=== PATIENT | female | born 1945 | race African-American/Black ===

== ENCOUNTER 2018-04-21 08:14 | Day surgery (SDC) | payer OTHER ==
[2018-04-20 17:42] VITALS: BMI 28.3
[2018-04-21 09:30] VITALS: TEMP 97.8
--- NOTE | 2018-04-21 10:05 | HP ---
Satellite H - Chief Complaint Chief Complaint: right hand pain/numbness - Past Medical History Allergies/Adverse Reactions: Allergies Allergy/AdvReac Type Severity Reaction Status Date / Time Penicillins Allergy Severe Rash Verified 04/21/18 09:40 Cardiovascular: Yes: HTN Pulmonary: Yes: Asthma Heme/Onc: Yes: Other (paraproteinemia) - Current Medications Current Medications: Home Medications Medication Instructions Recorded Diltiazem [Cardizem -] 240 mg PO DAILY 06/14/13 Gabapentin 100 mg PO TID 06/14/13 Losartan/Hydrochlorothiazide 1 each PO DAILY 06/14/13 [Hyzaar 50-12.5 Tablet] Montelukast Na [Singulair -] 10 mg PO HS 06/14/13 Paroxetine HCl [Paxil -] 20 mg PO DAILY 06/14/13 Rosuvastatin [Crestor -] 40 mg PO HS 06/14/13 Salmeterol/Fluticasone [Advair 1 inh PO BID 06/14/13 250Mcg/50Mcg -] Nystatin Oral Suspension - 5 ml PO QID 04/20/18 [Nystatin Oral Susp 590781 Units/5 ML -] Hydrocodone/Acetaminophen [Aurora 1 each PO Q6H PRN #20 tablet MDD 4 04/21/18 5-325 Tablet] Satellite Physical Exam - Physical Examination Vital Signs: Vital Signs Period Temp Pulse Resp BP Sys/Moss Pulse Ox Last 24 Hr 97.8 F-97.8 F 76-90 20-20 136-136/86-86 98 General Appearance: Well Nourished, Well Developed, Alert & Oriented x3 ENT: Clear Lung: Normal air movement Heart: Regular rate & rhythm Extremities: Other (right hand- + tinels, + phalens emg + cts) Neurological: Intact, Alert, Oriented Satellite Impression/Plan - Impression/Plan Impression: right cts Operative Procedure: right ctr Date to be Performed: 04/21/18
[2018-04-21] MEDS ORDERED: PROPOFOL 20 ML ONE (10:32)
[2018-04-21] MEDS ORDERED: MIDAZOLAM HCL 2 MG/2 ML SINGLE DOSE VIAL ONE (10:32)
[2018-04-21] MEDS ORDERED: LIDOCAINE HCL 1%, 10 MG/ML (20ML VIAL) ONE (10:54)
[2018-04-21] MEDS ORDERED: ceFAZolin SODIUM 1 GM VIAL IVPB ONE (11:05)
[2018-04-21] MEDS ORDERED: ceFAZolin SODIUM 1 GM VIAL ONE (11:09)
[2018-04-21] MEDS ORDERED: LIDOCAINE HCL 1%, 10 MG/ML (20ML VIAL) INF ONE (11:30)
[2018-04-21] MEDS ORDERED: BUPIVACAINE HCL/PF 0.5% (5MG/ML) 10 ML VIAL IJ ONE (11:31)
--- NOTE | 2018-04-21 11:32 | OP ---
Operative Note - Note: Operative Date: 04/21/18 ([facility]) Pre-Operative Diagnosis: right cts Operation: right ctr Post-Operative Diagnosis: Same as Pre-op Surgeon: Aron Langley Fiberglass Fabricator: Carlo Smith Anesthesiologist/FILM AND VIDEO GRAPHICS DESIGNER: Desiree Carrion Anesthesia: Local, MAC Specimens Removed: tenosynovium Estimated Blood Loss (mls): 0 (tourniquet) Operative Report Dictated: Yes
--- NOTE | 2018-04-21 13:28 | OP ---
DATE OF OPERATION: 04/21/2018 PREOPERATIVE DIAGNOSIS: Right carpal tunnel syndrome. POSTOPERATIVE DIAGNOSIS: Right carpal tunnel syndrome. PROCEDURE: Right carpal tunnel release and tenosynovectomy. SURGEON: Aron Langley MD OPTION TRADER: Carlo Smith MD ANESTHESIA: , MAC anesthesia, local injection of 12 mL 0.5% Marcaine, 1% lidocaine mix. DRAINS: None. COMPLICATIONS: None. SPECIMENS: Tenosynovium, right wrist. BLOOD LOSS: None. BLOOD GIVEN: None. FLUID REPLACEMENT: 500 mL. INDICATION: This patient is a 73-year-old female with a preoperative diagnosis of right carpal tunnel syndrome. After understanding the potential risks, complications, alternatives, benefits of surgery versus nonsurgical treatment, the patient elected to undergo this procedure. She understands she may not get complete relief of her symptoms including a continuation of all or some of her numbness. She also understands will continue to improve for 6 months. This was all discussed preoperatively. DESCRIPTION OF PROCEDURE: The patient was brought to the operating room, peripheral IV placed and intravenous sedation was given. One gram of intravenous Ancef was given. MAC anesthesia was induced. A tourniquet was applied to the right upper arm and the right upper extremity was prepped and draped in sterile fashion. The entire case was done under 3.8 loupe magnification. A marking pen was utilized to magdy out a longitudinal incision in an already existing skin crease. Twenty mL of 0.5% Marcaine mixed with 1% Lidocaine was injected in and around the surgical incision. The right upper extremity was elevated, exsanguinated with an Esmarch bandage and the tourniquet inflated to 250 mmHg. A No. 15 scalpel blade was utilized to cut down through the skin. Subcutaneous hemostasis was achieved with the bipolar cautery. Dissection was done through the superficial palmar fascia. Self-retaining retractors were placed into the wound. Under direct visualization, the transverse carpal ligament was transected with a No. 15 scalpel blade, exposing the median nerve and the contents of the carpal tunnel. The distal and proximal extents of the release were completed with a Littler scissor and checked with irrigation and my small finger. They were seen to be complete. Limited dissection was done on the radial side of the median nerve and more extensive dissection was done on the ulnar side of the median nerve. The patients nerve was seen to be quite compressed by epineurium and therefore a limited epineurotomy was performed. A Ragnell retractor was used to gently retract the median nerve in a radial direction. The patient had a lot of tenosynovitis and therefore a tenosynovectomy was performed off all 9 flexor tendons. This was passed off the field as tenosynovium right wrist. The floor of the carpal tunnel was checked. There were no abnormal masses or ganglion cysts. The area was copiously irrigated and washed out and closure begun. Undyed 4-0 Vicryl was used to close the deep dermal layer. Final skin reapproximation was done with horizontal mattress 4-0 nylon sutures. The area was then washed and dried, covered with Xeroform, 4x4s, fluffs between the fingers, Webril and a 4-inch plaster roll was utilized to make a volar splint, which was then wrapped with Ray and Coban. The tourniquet was taken down after a total tourniquet time of 15 minutes. There were no complications during the case. The patient tolerated the procedure well and was brought to the ambulatory recovery room in stable condition. Sharyn [id number]
[2018-04-21 14:26] VITALS: BP 132/77; PULSE 80
--- NOTE | 2018-04-22 15:54 | PATH ---
Surgical Pathology Report Patient Name: SHERRY SIMPSON [facility]. Rec. #: [id number] /Age/Gender: 1945 (Age: 73) / F Account: [id number] Location: [facility] Taken: 04/21/2018 Received: 04/21/2018 Reported: 04/22/2018 Physicians: Sharyn Sesay M.D. Specimen(s) Received TENOSYNOVIUM Clinical History Right carpal tunnel syndrome Final Diagnosis TENOSYNOVIUM, RELEASE: TENOSYNOVIUM. Electronically Signed Sheila Gifford M.D. Gross Description Received in formalin labeled "tenosynovium," is a 2.4 x 1.6 x 0.3 cm aggregate of kearns soft tissue fragments, consistent with tenosynovium. The specimen is entirely submitted in one cassette. DL/04/21/2018 saudi/04/21/2018
== END 2018-04-21 14:00 | disposition home or self-care (01) ==
LOC: JASU-SURG 08:14
PROVIDERS: ATTEND Orthopaedic Surgery
PROC: 01N50ZZ Release Median Nerve, Open Approach (ICD-10-PCS; principal; 2018-04-21 10:30)
DX: G56.01 Carpal tunnel syndrome, right upper limb (principal)
CPT/HCPCS: 88304-TC

== ENCOUNTER 2018-10-11 13:28 | Inpatient (IN) | payer OTHER ==
--- NOTE | 2018-10-11 14:38 | PDOC ---
History of Present Illness - General Chief Complaint: Nausea/Vomiting Stated Complaint: PCP REFERRED Time Seen by Provider: 10/11/18 14:13 History Source: Patient Exam Limitations: No Limitations - History of Present Illness Initial Comments: 10/11/18 15:12 73 yo F with a hx of multiple myeloma (dx 4 years ago; refused chemo in past; followed by Dr. Stuart), HTN, HLD, and hypothyroidism presents to the emergency department referred by Dr. Stuart for N/V, failure to thrive, DEBBIE, and worsening weakness. Per the patient, she states she has had N/V (watery, without hematemesis, multiple) for last 4 days with associative constant abdominal pain in the RUQ and epigastric region that radiates to the back ( currently does not have pain today). She states she has had pancreas issues in the past (unknown pathology). Currently she feels nauseous and weak. Endorses the following: chills, nausea, vomiting, diarrhea, cough (without production), chills, and generalized weakness. Denies the following: visual changes, headache , ear/nose/throat pain, fevers, chest pain, SOB, dysuria, hematuria, diarrhea, hematochezia, and leg pain/swelling. Pmhx: Refer to above Shx: hiatal hernia () Meds: Refer to list. denies anticoagulation use. Allergies: Penicillin Social: Denies tobacco, alcohol, and substance abuse. Past History - Past Medical History Allergies/Adverse Reactions: Allergies Allergy/AdvReac Type Severity Reaction Status Date / Time Penicillins Allergy Severe Rash Verified 04/21/18 09:40 Home Medications: Ambulatory Orders Diltiazem [Cardizem -] 240 mg PO DAILY 06/14/13 Gabapentin 300 mg PO TID 06/14/13 Atorvastatin Ca [Lipitor] 40 mg PO HS 10/11/18 Diltiazem Cd [Cardizem Cd -] 240 mg PO DAILY 10/11/18 Famotidine [Pepcid] 40 mg PO DAILY 10/11/18 Levothyroxine [Synthroid -] 25 mcg PO DAILY 10/11/18 Losartan Potassium 25 mg PO DAILY 10/11/18 Meloxicam 15 mg PO DAILY 10/11/18 Methimazole 10 mg PO BID 10/11/18 [place]-3/Dha/Epa/Fish Oil [[place] 3 500 Softgel] 1 each PO DAILY 10/11/18 Omeprazole 20 mg PO DAILY 10/11/18 Anemia: Yes Asthma: Yes Cancer: Yes (myeloma) Cardiac Disorders: Yes (pt denies) CVA: No COPD: Yes CHF: No Dementia: No Diabetes: No (not on any meds) GI Disorders: Yes (HIATAL HERNIA) Disorders: No HTN: Yes Hypercholesterolemia: Yes Liver Disease: Yes (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) Seizures: No Thyroid Disease: No - Surgical History Abdominal Surgery: Yes Appendectomy: No Cardiac Surgery: No Cholecystectomy: No Lung Surgery: No Neurologic Surgery: No Orthopedic Surgery: No - Suicide/Smoking/Psychosocial Hx Smoking History: Never smoked Have you smoked in the past 12 months: No If you are a former smoker, when did you quit?: 1987 Information on smoking cessation initiated: No Hx Alcohol Use: No Drug/Substance Use Hx: No Substance Use Type: None Hx Substance Use Treatment: No Review of Systems - Review of Systems Able to Perform ROS?: Yes Is the patient limited Lithuanian proficient: No Constitutional: Yes: Chills, Weakness. No: Diaphoresis, Fever HEENTM: No: Eye Pain, Recent change in vision, Ear Pain, Nose Pain, Throat Pain , Mouth Pain Respiratory: Yes: Cough. No: Shortness of Breath, SOB with Exertion, Hemoptysis Cardiac (ROS): No: Chest Pain, Lightheadedness, Palpitations, Syncope, Chest Tightness ABD/GI: Yes: Diarrhea, Nausea, Poor Appetite, Poor Fluid Intake, Vomiting. No: Constipated, Rectal Bleeding, Abdominal cramping, Tarry Stools : No: Burning, Dysuria, Frequency, Hematuria Musculoskeletal: No: Back Pain, Joint Pain, Muscle Weakness Integumentary: No: Bruising, Lesions, Rash, Sweating Neurological: No: Headache, Numbness, Tremors, Weakness Psychiatric: No: Stressors Endocrine: No: Unexplained Weight Loss Hematologic/Lymphatic: No: Anemia *Physical Exam - Vital Signs Last Vital Signs Temp Pulse Resp BP Pulse Ox 98.6 F 118 H 18 150/104 H 100 10/11/18 13:28 10/11/18 13:28 10/11/18 13:28 10/11/18 13:28 10/11/18 13:28 Moderate Sedation - Procedure Monitoring Vital Signs: Procedure Monitoring Vital Signs Temperature 98.6 F 10/11/18 13:28 Pulse Rate 118 H 10/11/18 13:28 Respiratory Rate 18 10/11/18 13:28 Blood Pressure 150/104 H 10/11/18 13:28 O2 Sat by Pulse Oximetry (%) 100 10/11/18 13:28 ED Treatment Course - LABORATORY CBC & Chemistry Diagram: 10/11/18 14:57 10/11/18 14:57 *DC/Admit/Observation/Transfer - Referrals Referrals: Yenny Benavides [Primary Care Provider] - - Patient Instructions - Post Discharge Activity
[2018-10-11] MEDS ORDERED: ONDANSETRON 4 MG/2 ML VIAL IVPUSH ONE (15:13)
[2018-10-11] MEDS ORDERED: SODIUM CHLORIDE 1,000 ML IV STA (15:14)
[2018-10-11] MEDS ORDERED: ONDANSETRON 4 MG/2 ML VIAL ONE (15:17)
[2018-10-11 15:59] LABS: BASO % 0.4 % (0-2.0); EOS % 0.2 % (0-4.5); HEMATOCRIT 31.9 % (32.4-45.2); HEMOGLOBIN 11.3 GM/dL (10.7-15.3); LYMPH % 21.9 % (8-40); MCH 32.6 pg (25.7-33.7); MCHC 35.5 g/dl (32.0-36.0); MEAN CELL VOLUME 91.8 fl (80-96); MONO % 4.5 % (3.8-10.2); PLATELET COUNT 233 K/MM3 (134-434); RBC 3.47 M/mm3 (3.60-5.2); RDW 15.1 % (11.6-15.6)
--- NOTE | 2018-10-11 16:35 | PDOC ---
Attending Attestation - Resident Resident Name: Shahid Villarreal - ED Attending Attestation I have performed the following: I have examined & evaluated the patient, The case was reviewed & discussed with the resident, I agree w/resident's findings & plan, Exceptions are as noted - HPI HPI: 10/11/18 16:33 73 F with h/o multiple myeloma (dx 4 years ago; refused chemo in past; followed by Dr. Stuart), HTN, HLD, and hypothyroidism presenting with N/V and abdominal pain. Pt reports several days of RUQ pain, associated with vomiting. Pt denies F /C. Pt also reports generalized malaise. Denies F/C. Denies CP/SOB. - Physicial Exam PE: 10/11/18 16:37 "GENERAL: Awake, alert, and fully oriented, in no acute distress. HEAD: No signs of trauma EYES: PERRLA, EOMI, sclera anicteric, conjunctiva clear ENT: Auricles normal inspection, hearing grossly normal, nares patent, oropharynx clear without exudates. Moist mucosa NECK: Nontender, no stepoffs, Normal ROM, supple, no lymphadenopathy, JVD, or masses LUNGS: Breath sounds equal, clear to auscultation bilaterally. No wheezes, and no crackles HEART: Regular rate and rhythm, normal S1 and S2, no murmurs, rubs or gallops ABDOMEN: + RUQ TTP, + epigastric TTP, normoactive bowel sounds. No guarding, no rebound. No masses EXTREMITIES: Normal range of motion, no edema. No clubbing or cyanosis. No cords, erythema, or tenderness NEUROLOGICAL: Cranial nerves II through XII intact. 5/5 strength and sensation in all extremities, Normal speech, normal gait, normal cerebellar function SKIN: Warm, Dry, normal turgor, no rashes or lesions noted. - Medical Decision Making 10/11/18 16:37 73 F with RUQ pain and vomiting. Will evaluate for acute lyndsey. Pt also has h/o MM and was sent in by Dr. Stuart for concern of failure to thrive and dehydration. Will check electrolytes and administer IV fluids. - Labs - CXR, UA - RUQ sono - IVF - Admit
--- NOTE | 2018-10-11 18:19 | CONSULT ---
Consult - text type - Consultation Consultation Note: Patient well known to our service 73 y/o with GERD, smoldering myeloma, now withnew onset leg swelling comes in with lethargy, wt. loss, poor PO intake Urine protein/cr ratio --10gms proteinuria Ig A lambda myeloma Feels tino with hydration check skeletal survey Renal consilt start allopurinol will consdier velcade/dex will need endocrine consult for elevated TSH
[2018-10-11 18:42] LABS: ALBUMIN 1.3 g/dl (3.4-5.0); ALK PHOS 70 U/L (45-117); ANION GAP 12 MMOL/L (8-16); BILIRUBIN,TOTAL 0.3 mg/dL (0.2-1); BLOOD UREA NITROGEN 13 mg/dL (7-18); CALCIUM 9.6 mg/dL (8.5-10.1); CHLORIDE 104 mmol/L (98-107); CO2 23 mmol/L (21-32); CREATININE 0.9 mg/dL (0.55-1.3); GLUCOSE,RANDOM 93 mg/dL (74-106); LIPASE 111 U/L (73-393); POTASSIUM 4.4 mmol/L (3.5-5.1); SGOT/AST 22 U/L (15-37); SGPT/ALT 12 U/L (13-61); SODIUM 139 mmol/L (136-145); TOT PROT 8.3 g/dl (6.4-8.2)
[2018-10-11] MEDS ORDERED: ALLOPURINOL 100 MG TABLET (FP) ONE (18:55)
[2018-10-11] MEDS: ALLOPURINOL 300 MG TABLET (FP) PO SCH (19:04)
[2018-10-12 05:32] LABS: BASO % 0.3 % (0-2.0); EOS % 0.6 % (0-4.5); HEMATOCRIT 27.3 % (32.4-45.2); HEMOGLOBIN 9.1 GM/dL (10.7-15.3); LYMPH % 37.1 % (8-40); MCH 30.9 pg (25.7-33.7); MCHC 33.2 g/dl (32.0-36.0); MEAN PLT VOLUME 7.3 fl (7.5-11.1); MONO % 6.9 % (3.8-10.2); NEUT % 55.1 % (42.8-82.8); PLATELET COUNT 212 K/MM3 (134-434); RBC 2.93 M/mm3 (3.60-5.2); RDW 15.1 % (11.6-15.6); WHITE BLOOD COUNT 6.1 K/mm3 (4.0-10.0)
[2018-10-12 05:59] LABS: ALBUMIN 1.2 g/dl (3.4-5.0); ALK PHOS 65 U/L (45-117); ANION GAP 8 MMOL/L (8-16); BILIRUBIN,TOTAL 0.2 mg/dL (0.2-1); BLOOD UREA NITROGEN 14 mg/dL (7-18); CALCIUM 9.3 mg/dL (8.5-10.1); CHLORIDE 106 mmol/L (98-107); CO2 25 mmol/L (21-32); GLUCOSE,RANDOM 87 mg/dL (74-106); LDH 100 U/L (84-246); POTASSIUM 3.7 mmol/L (3.5-5.1); SGOT/AST 13 U/L (15-37); SGPT/ALT 13 U/L (13-61); SODIUM 139 mmol/L (136-145); TOT PROT 7.8 g/dl (6.4-8.2)
[2018-10-12] MEDS ORDERED: HEPARIN NA (PORCINE) 5,000 UNITS/ML 1ML VIAL ONE (06:48)
[2018-10-12] MEDS ORDERED: GABAPENTIN 100 MG CAPSULE (FP) ONE (06:48)
[2018-10-12] MEDS ORDERED: LEVOTHYROXINE NA 25 MCG TABLET (FP) ONE (06:48)
[2018-10-12] MEDS: HEPARIN NA (PORCINE) 5,000 UNITS/ML 1ML VIAL SQ SCH ×3 (06:55→22:26)
[2018-10-12] MEDS: GABAPENTIN 300 MG CAPSULE (FP) PO SCH ×3 (07:06→22:26)
[2018-10-12] MEDS: LEVOTHYROXINE NA 25 MCG TABLET (FP) PO SCH (07:06)
[2018-10-12] MEDS ORDERED: PATIENT'S OWN MEDICATION (NON-FORMULARY) (Meloxicam [Meloxicam] 15 MG) PO SCH (10:00)
[2018-10-12] MEDS: RANITIDINE HCL 150 MG TABLET (FP) PO SCH (10:05)
[2018-10-12] MEDS: LOSARTAN POTASSIUM 25 MG TABLET PO SCH (10:05)
[2018-10-12] MEDS: ALLOPURINOL 300 MG TABLET (FP) PO SCH (10:10)
[2018-10-12 10:13] LABS: URINE APPEARANCE CLEAR; URINE BILIRUBIN NEGATIVE (<2.0 mg/dL); URINE COLOR YELLOW; URINE GLUCOSE (UA) NEGATIVE (NEGATIVE); URINE KETONE NEGATIVE (NEGATIVE); URINE LEUK ESTERASE NEGATIVE (NEGATIVE); URINE NITRITE NEGATIVE (NEGATIVE); URINE PROTEIN 3+ (NEGATIVE); URINE UROBILINOGEN NEGATIVE mg/dL (0.2-1.0)
[2018-10-12 10:22] LABS: EPI CELLS RARE /HPF (FEW); URINE HYALINE CAST 7 /lpf
--- NOTE | 2018-10-12 12:59 | EKG ---
Test Reason : Blood Pressure : / mmHG Vent. Rate : 119 BPM Atrial Rate : 119 BPM P-R Int : 160 ms QRS Dur : 084 ms QT Int : 312 ms P-R-T Axes : 049 -36 076 degrees QTc Int : 438 ms SINUS TACHYCARDIA POSSIBLE LEFT ATRIAL ENLARGEMENT LEFT AXIS DEVIATION ABNORMAL ECG Confirmed by Kemar Tierney ([id number]) on 10/12/2018 12:58:51 PM Referred By: Confirmed By:Kemar Tierney
--- NOTE | 2018-10-12 15:04 | CONSULT ---
Consult Consult Specialty:: Nephrology Reason for Consultation:: proteinuria - History of Present Illness Chief Complaint: weakness and failure to thrive History of Present Illness: Pt is a 73 year old female with pmhx of multiple myeloma, HTN, HLD, and hypothyroidism who presents to the ER with failure to thrive and weakness. She complains of abdominal pain and vomiting. She denies over the counter nsaid use however she is on meloxicam. She denies dysuria or hematuria. She does have proteinuria. I was called to evaluate her for increased proteinuria. She denies fevers or chills. She does complain of lower ext edema. She says that she does feel better today. - History Source History Provided By: Patient, Medical Record - Past Medical History Cardio/Vascular: Yes: HTN Pulmonary: Yes: Asthma Heme/Onc: Yes: Other (multiple myeloma) - Alcohol/Substance Use Hx Alcohol Use: No - Smoking History Smoking history: Never smoked Have you smoked in the past 12 months: No If you are a former smoker, when did you quit?: 1987 Home Medications - Allergies Allergies/Adverse Reactions: Allergies Allergy/AdvReac Type Severity Reaction Status Date / Time Penicillins Allergy Severe Rash Verified 04/21/18 09:40 - Home Medications Home Medications: Ambulatory Orders Diltiazem [Cardizem -] 240 mg PO DAILY 06/14/13 Gabapentin 300 mg PO TID 06/14/13 Atorvastatin Ca [Lipitor] 40 mg PO HS 10/11/18 Diltiazem Cd [Cardizem Cd -] 240 mg PO DAILY 10/11/18 Famotidine [Pepcid] 40 mg PO DAILY 10/11/18 Levothyroxine [Synthroid -] 25 mcg PO DAILY 10/11/18 Losartan Potassium 25 mg PO DAILY 10/11/18 Meloxicam 15 mg PO DAILY 10/11/18 Methimazole 10 mg PO BID 10/11/18 [place]-3/Dha/Epa/Fish Oil [[place] 3 500 Softgel] 1 each PO DAILY 10/11/18 Omeprazole 20 mg PO DAILY 10/11/18 Family Disease History - Family Disease History Family History: Denies Review of Systems - Review of Systems Constitutional: reports: Malaise. denies: Chills, Fever HENT: reports: No Symptoms Neck: reports: No Symptoms Cardiovascular: reports: Edema Respiratory: reports: SOB on Exertion Genitourinary: reports: No Symptoms Musculoskeletal: reports: Muscle Weakness Neurological: reports: No Symptoms Endocrine: reports: No Symptoms Hematology/Lymphatic: reports: No Symptoms Physical Exam Vital Signs: Vital Signs Temperature 98.8 F 10/12/18 12:00 Pulse Rate 102 H 10/12/18 14:15 Respiratory Rate 18 10/12/18 14:15 Blood Pressure 110/69 10/12/18 14:15 O2 Sat by Pulse Oximetry (%) 99 10/12/18 14:15 Constitutional: Yes: Calm Eyes: Yes: Conjunctiva Clear HENT: Yes: Atraumatic Cardiovascular: Yes: S1, S2 Respiratory: Yes: CTA Bilaterally Gastrointestinal: Yes: Soft, Abdomen, Obese Renal/: Yes: WNL Edema: Yes Edema: LLE: Trace, RLE: Trace Neurological: Yes: Oriented Psychiatric: Yes: Oriented Labs: CBC, BMP 10/12/18 05:00 10/12/18 05:00 Laboratory Tests 03/11/17 10/11/18 10/11/18 08:15 14:57 17:33 WBC Hgb 11.3 Creatinine 0.9 0.9 Albumin 1.3 L TSH Urine Protein 10/12/18 10/12/18 10/12/18 05:00 05:00 05:00 WBC 6.1 Hgb 9.1 L Creatinine 1.0 Albumin 1.2 L TSH 14.90 H Urine Protein 10/12/18 09:51 WBC Hgb Creatinine Albumin TSH Urine Protein 3+ H Imaging - Results Chest X-ray: Report Reviewed Problem List - Problems (1) Proteinuria Code(s): R80.9 - PROTEINURIA, UNSPECIFIED (2) Multiple myeloma Code(s): C90.00 - MULTIPLE MYELOMA NOT HAVING ACHIEVED REMISSION (3) HTN (hypertension) Code(s): I10 - ESSENTIAL (PRIMARY) HYPERTENSION (4) HLD (hyperlipidemia) Code(s): E78.5 - HYPERLIPIDEMIA, UNSPECIFIED Assessment/Plan Current Medications Generic Name Dose Route Start Last Admin Trade Name Freq PRN Reason Stop Dose Admin Allopurinol 300 mg 10/11/18 18:15 10/12/18 10:10 Zyloprim - PO 300 mg DAILY PABLITO Administration Atorvastatin Calcium 40 mg 10/12/18 22:00 Lipitor - PO HS PABLITO Diltiazem HCl 240 mg 10/12/18 10:00 10/12/18 10:05 Cardizem Cd - PO 240 mg DAILY PABLITO Administration Gabapentin 300 mg 10/12/18 06:00 10/12/18 14:08 Neurontin - PO 300 mg TID PABLITO Administration Heparin Sodium (Porcine) 5,000 unit 10/12/18 06:00 10/12/18 14:07 Heparin - SQ 5,000 unit TID PABLITO Administration Levothyroxine Sodium 25 mcg 10/12/18 07:00 10/12/18 07:06 Synthroid - PO 25 mcg DAILY@0700 PABLITO Administration Losartan Potassium 25 mg 10/12/18 10:00 10/12/18 10:05 Cozaar - PO 25 mg DAILY PABLITO Administration Non-Formulary Medication 15 mg 10/12/18 10:00 Meloxicam [Meloxicam] PO DAILY [facility] Ranitidine HCl 300 mg 10/12/18 10:00 10/12/18 10:05 Zantac - PO 300 mg DAILY PABLITO Administration Impression 1. proteinuria 2. multiple myeloma 3. failure to thive 4. edema 5. htn 6. HLD 7. hypothyroidism Plan - will check prt to coarse wire drawer ratio - will send out renal workup - cont with cozaar and increase dose to 50 mg - repeat labs in am - repeat ua - monitor bp - encourage PO intake - will discuss myeloma and treatment with oncology
[2018-10-12 16:17] VITALS: BMI 27.3
--- NOTE | 2018-10-12 18:03 | PN ---
Progress Note (short form) - Note Progress Note: PROGRESS NOTE FOR HEMATOLOGY/ONCOLOGY Patient seen and examined by me at bedside Patient reports feeling much better and reports having only a minor headache in the temporal area Otherwise, patient denies any fever, chills, nausea, vomiting, abdominal pain, chest pain, palpitations, shortness of breath, dysuria, hematuria, hematochezia , melena. Vital Signs Temperature 98.9 F 10/12/18 17:41 Pulse Rate 99 H 10/12/18 17:41 Respiratory Rate 20 10/12/18 17:41 Blood Pressure 123/79 10/12/18 17:41 O2 Sat by Pulse Oximetry (%) 96 10/12/18 16:20
--- NOTE | 2018-10-12 18:08 | PN ---
Progress Note (short form) - Note Progress Note: :Patient seen and examined No headache or bone pains LE edema improved Seen by renal- work up instituted Last Vital Signs Temp Pulse Resp BP Pulse Ox 98.9 F 99 H 20 123/79 96 10/12/18 17:41 10/12/18 17:41 10/12/18 17:41 10/12/18 17:41 10/12/18 16:20 HEENT: ZOILA, EOM Intact Oropharynx: No thrush, No mucositis Cor: RSR, No murmurs, No gallops Lungs: Clear to P&A Abd: Soft, Normal bowel sounds, No organomegaly Ext:No significant edema Skin: No rashes, Integument intact CBC, BMP 10/12/18 05:00 10/12/18 05:00 Current Medications Generic Name Dose Route Start Last Admin Trade Name Freq PRN Reason Stop Dose Admin Allopurinol 300 mg 10/11/18 18:15 10/12/18 10:10 Zyloprim - PO 300 mg DAILY PABLITO Administration Atorvastatin Calcium 40 mg 10/12/18 22:00 Lipitor - PO HS PABLITO Diltiazem HCl 240 mg 10/12/18 10:00 10/12/18 10:05 Cardizem Cd - PO 240 mg DAILY PABLITO Administration Gabapentin 300 mg 10/12/18 06:00 10/12/18 14:08 Neurontin - PO 300 mg TID PABLITO Administration Heparin Sodium (Porcine) 5,000 unit 10/12/18 06:00 10/12/18 14:07 Heparin - SQ 5,000 unit TID PABLITO Administration Levothyroxine Sodium 25 mcg 10/12/18 07:00 10/12/18 07:06 Synthroid - PO 25 mcg DAILY@0700 PABLITO Administration Losartan Potassium 25 mg 10/12/18 10:00 10/12/18 10:05 Cozaar - PO 25 mg DAILY PABLITO Administration Non-Formulary Medication 15 mg 10/12/18 10:00 Meloxicam [Meloxicam] PO DAILY PABLITO Ranitidine HCl 300 mg 10/12/18 10:00 10/12/18 10:05 Zantac - PO 300 mg DAILY PABLITO Administration Impression: IgA myeloma Proteinuria Anemia Renal sono- negative Abdominal sono-biliary sludge To institute therapy with velcade and decadron Allopurinol begun
[2018-10-12 19:13] LABS: URINE APPEARANCE SLCLOUDY; URINE BILIRUBIN NEGATIVE (<2.0 mg/dL); URINE COLOR YELLOW; URINE GLUCOSE (UA) NEGATIVE (NEGATIVE); URINE KETONE NEGATIVE (NEGATIVE); URINE LEUK ESTERASE NEGATIVE (NEGATIVE); URINE NITRITE NEGATIVE (NEGATIVE); URINE PROTEIN 3+ (NEGATIVE); URINE UROBILINOGEN NEGATIVE mg/dL (0.2-1.0)
[2018-10-12 19:29] LABS: EPI CELLS RARE /HPF (FEW); URINE MUCUS RARE
--- NOTE | 2018-10-12 19:48 | HP ---
Admitting History and Physical - Past Medical History Cardiovascular: Yes: HTN Pulmonary: Yes: Asthma ...: No Heme/Onc: Yes: Other (multiple myeloma) - Smoking History Smoking history: Never smoked Have you smoked in the past 12 months: No Aproximately how many cigarettes per day: 0 If you are a former smoker, when did you quit?: 1987 - Alcohol/Substance Use Hx Alcohol Use: No Home Medications - Allergies Allergies/Adverse Reactions: Allergies Allergy/AdvReac Type Severity Reaction Status Date / Time Penicillins Allergy Severe Rash Verified 04/21/18 09:40 - Home Medications Home Medications: Ambulatory Orders Gabapentin 300 mg PO TID 06/14/13 Atorvastatin Ca [Lipitor] 40 mg PO HS 10/11/18 Diltiazem Cd [Cardizem Cd -] 240 mg PO DAILY 10/11/18 Famotidine [Pepcid] 40 mg PO DAILY 10/11/18 Levothyroxine [Synthroid -] 25 mcg PO DAILY 10/11/18 Losartan Potassium 25 mg PO DAILY 10/11/18 Meloxicam 15 mg PO DAILY 10/11/18 Methimazole 10 mg PO BID 10/11/18 [place]-3/Dha/Epa/Fish Oil [[place] 3 500 Softgel] 1 each PO DAILY 10/11/18 Omeprazole 20 mg PO DAILY 10/11/18 Physical Examination Vital Signs: Vital Signs Temperature 98.9 F 10/12/18 17:41 Pulse Rate 99 H 10/12/18 17:41 Respiratory Rate 20 10/12/18 17:41 Blood Pressure 123/79 10/12/18 17:41 O2 Sat by Pulse Oximetry (%) 96 10/12/18 16:20 Labs: CBC, BMP 10/12/18 05:00 10/12/18 05:00
[2018-10-12 21:28] LABS: RATIO URIN PROTEIN/URIN CREAT 8.9 MG/DL
[2018-10-12] MEDS: ATORVASTATIN CA 40 MG TABLET (FP) PO SCH (22:26)
[2018-10-13] MEDS: HEPARIN NA (PORCINE) 5,000 UNITS/ML 1ML VIAL SQ SCH ×3 (05:46→21:18)
[2018-10-13] MEDS: GABAPENTIN 300 MG CAPSULE (FP) PO SCH ×3 (05:46→21:18)
[2018-10-13] MEDS: LEVOTHYROXINE NA 25 MCG TABLET (FP) PO SCH (06:06)
[2018-10-13 07:31] LABS: BASO % 0.4 % (0-2.0); EOS % 1.6 % (0-4.5); HEMATOCRIT 25.2 % (32.4-45.2); HEMOGLOBIN 8.9 GM/dL (10.7-15.3); LYMPH % 38.8 % (8-40); MCH 32.7 pg (25.7-33.7); MCHC 35.4 g/dl (32.0-36.0); MEAN CELL VOLUME 92.2 fl (80-96); MEAN PLT VOLUME 7.5 fl (7.5-11.1); MONO % 7.8 % (3.8-10.2); NEUT % 51.4 % (42.8-82.8); PLATELET COUNT 241 K/MM3 (134-434); RBC 2.73 M/mm3 (3.60-5.2); WHITE BLOOD COUNT 5.7 K/mm3 (4.0-10.0)
--- NOTE | 2018-10-13 07:33 | PN ---
Progress Note (short form) - Note Progress Note: Patient seen and examined No specific complaints offered Last Vital Signs Temp Pulse Resp BP Pulse Ox 98.4 F 98 H 20 124/72 96 10/13/18 05:53 10/13/18 05:53 10/13/18 05:53 10/13/18 05:53 10/12/18 16:20 HEENT: ZOILA, EOM Intact Oropharynx: No mucositis, coated tongue Cor: RSR, No murmurs, No gallops Lungs: Clear to P&A Abd: Soft, Normal bowel sounds, No organomegaly Ext:No significant edema Skin: No rashes, Integument intact CBC, BMP 10/12/18 05:00 Current Medications Generic Name Dose Route Start Last Admin Trade Name Edgar PRN Reason Stop Dose Admin Allopurinol 300 mg 10/11/18 18:15 10/12/18 10:10 Zyloprim - PO 300 mg DAILY PABLITO Administration Atorvastatin Calcium 40 mg 10/12/18 22:00 10/12/18 22:26 Lipitor - PO 40 mg HS PABLITO Administration Diltiazem HCl 240 mg 10/12/18 10:00 10/12/18 10:05 Cardizem Cd - PO 240 mg DAILY PABLITO Administration Gabapentin 300 mg 10/12/18 06:00 10/13/18 05:46 Neurontin - PO 300 mg TID PABLITO Administration Heparin Sodium (Porcine) 5,000 unit 10/12/18 06:00 10/13/18 05:46 Heparin - SQ 5,000 unit TID PABLITO Administration Levothyroxine Sodium 25 mcg 10/12/18 07:00 10/13/18 06:06 Synthroid - PO 25 mcg DAILY@0700 PABLITO Administration Losartan Potassium 25 mg 10/12/18 10:00 10/12/18 10:05 Cozaar - PO 25 mg DAILY PABLITO Administration Ranitidine HCl 300 mg 10/12/18 10:00 10/12/18 10:05 Zantac - PO 300 mg DAILY PABLITO Administration Impression: Multiple myeloma- for chemotherapy Hypothyroid - needs endocrine follow up Anemia- to monitor- B-12, and folate levels pending Plan: Velcade/ decadron Nystatin Endo follow up
[2018-10-13] MEDS: ALLOPURINOL 300 MG TABLET (FP) PO SCH (09:35)
[2018-10-13] MEDS: LOSARTAN POTASSIUM 25 MG TABLET PO SCH (09:36)
[2018-10-13] MEDS: RANITIDINE HCL 150 MG TABLET (FP) PO SCH (09:36)
--- NOTE | 2018-10-13 12:39 | PN ---
Progress Note, Physician History of Present Illness: Pt seen and examined at bedside. She is awake and alert. She denies shortness of breath. She will start treatment for chemo. - Current Medication List Current Medications: Active Medications Allopurinol (Zyloprim -) 300 mg PO DAILY [facility] Last Admin: 10/13/18 09:35 Dose: 300 mg Atorvastatin Calcium (Lipitor -) 40 mg PO HS [facility] Last Admin: 10/12/18 22:26 Dose: 40 mg Diltiazem HCl (Cardizem Cd -) 240 mg PO DAILY [facility] Last Admin: 10/13/18 09:35 Dose: 240 mg Gabapentin (Neurontin -) 300 mg PO TID [facility] Last Admin: 10/13/18 05:46 Dose: 300 mg Heparin Sodium (Porcine) (Heparin -) 5,000 unit SQ TID [facility] Last Admin: 10/13/18 05:46 Dose: 5,000 unit Levothyroxine Sodium (Synthroid -) 25 mcg PO DAILY@0700 [facility] Last Admin: 10/13/18 06:06 Dose: 25 mcg Losartan Potassium (Cozaar -) 25 mg PO DAILY [facility] Last Admin: 10/13/18 09:36 Dose: 25 mg Nystatin (Nystatin) 500,000 unit PO TID [facility] Ranitidine HCl (Zantac -) 300 mg PO DAILY [facility] Last Admin: 10/13/18 09:36 Dose: 300 mg - Objective Vital Signs: Vital Signs Temperature 99.8 F H 10/13/18 08:44 Pulse Rate 107 H 10/13/18 08:44 Respiratory Rate 20 10/13/18 09:00 Blood Pressure 128/75 10/13/18 08:44 O2 Sat by Pulse Oximetry (%) 97 10/13/18 09:00 Constitutional: Yes: Calm Eyes: Yes: Conjunctiva Clear HENT: Yes: Atraumatic Neck: Yes: Supple Cardiovascular: Yes: S1, S2 Respiratory: Yes: CTA Bilaterally Gastrointestinal: Yes: Normal Bowel Sounds, Soft Genitourinary: Yes: WNL Musculoskeletal: Yes: WNL Edema: No Integumentary: Yes: WNL Neurological: Yes: Oriented Psychiatric: Yes: Oriented Labs: CBC, BMP 10/13/18 06:15 10/12/18 05:00 Problem List - Problems (1) Proteinuria Code(s): R80.9 - PROTEINURIA, UNSPECIFIED (2) Multiple myeloma Code(s): C90.00 - MULTIPLE MYELOMA NOT HAVING ACHIEVED REMISSION (3) HTN (hypertension) Code(s): I10 - ESSENTIAL (PRIMARY) HYPERTENSION (4) HLD (hyperlipidemia) Code(s): E78.5 - HYPERLIPIDEMIA, UNSPECIFIED Assessment/Plan Current Medications Generic Name Dose Route Start Last Admin Trade Name Freq PRN Reason Stop Dose Admin Allopurinol 300 mg 10/11/18 18:15 10/13/18 09:35 Zyloprim - PO 300 mg DAILY [facility] Administration Atorvastatin Calcium 40 mg 10/12/18 22:00 10/12/18 22:26 Lipitor - PO 40 mg HS [facility] Administration Diltiazem HCl 240 mg 10/12/18 10:00 10/13/18 09:35 Cardizem Cd - PO 240 mg DAILY [facility] Administration Gabapentin 300 mg 10/12/18 06:00 10/13/18 05:46 Neurontin - PO 300 mg TID [facility] Administration Heparin Sodium (Porcine) 5,000 unit 10/12/18 06:00 10/13/18 05:46 Heparin - SQ 5,000 unit TID [facility] Administration Levothyroxine Sodium 25 mcg 10/12/18 07:00 10/13/18 06:06 Synthroid - PO 25 mcg DAILY@0700 [facility] Administration Losartan Potassium 25 mg 10/12/18 10:00 10/13/18 09:36 Cozaar - PO 25 mg DAILY [facility] Administration Nystatin 500,000 unit 10/13/18 14:00 Nystatin PO TID [facility] Ranitidine HCl 300 mg 10/12/18 10:00 10/13/18 09:36 Zantac - PO 300 mg DAILY [facility] Administration Laboratory Tests 10/12/18 10/13/18 14:39 06:15 Protein/Creatinin Ratio 8.9 MAURICE M-Alfredo Pending Serum MAURICE Interpret Pending MAURICE Interpretation Pending IEP IgG Pending IEP IgA Pending IEP IgM Pending CINTIA Screen Pending c-ANCA Pending Proteinase 3 (PR3) Pending p-ANCA Pending Atypical p-ANCA Pending Myeloperoxidase Ab Pending Double Strand DNA Ab Pending Glomerular Base Memb Ab Pending Impression 1. proteinuria 2. multiple myeloma 3. failure to thrive 4. edema 5. htn 6. HLD 7. hypothyroidism Plan - pt with nephrotic range proteinuria - serologic workup in progress - likely due to myeloma - discussed kidney biopsy options with pt and oncology - monitor urine for improvement with treatment of myeloma - will follow Dr Hameed
[2018-10-13] MEDS: NYSTATIN 500,000 UNITS TABLET PO SCH ×2 (13:12→21:18)
[2018-10-13] MEDS ORDERED: PT OWN MED DRAWER 7, Y5N ONE (20:39)
[2018-10-13] MEDS: ATORVASTATIN CA 40 MG TABLET (FP) PO SCH (21:18)
--- NOTE | 2018-10-13 22:40 | PN ---
Progress Note, Physician - Current Medication List Current Medications: Active Medications Allopurinol (Zyloprim -) 300 mg PO DAILY [facility] Last Admin: 10/13/18 09:35 Dose: 300 mg Atorvastatin Calcium (Lipitor -) 40 mg PO HS [facility] Last Admin: 10/13/18 21:18 Dose: 40 mg Diltiazem HCl (Cardizem Cd -) 240 mg PO DAILY [facility] Last Admin: 10/13/18 09:35 Dose: 240 mg Gabapentin (Neurontin -) 300 mg PO TID [facility] Last Admin: 10/13/18 21:18 Dose: 300 mg Heparin Sodium (Porcine) (Heparin -) 5,000 unit SQ TID [facility] Last Admin: 10/13/18 21:18 Dose: 5,000 unit Levothyroxine Sodium (Synthroid -) 25 mcg PO DAILY@0700 [facility] Last Admin: 10/13/18 06:06 Dose: 25 mcg Losartan Potassium (Cozaar -) 25 mg PO DAILY [facility] Last Admin: 10/13/18 09:36 Dose: 25 mg Nystatin (Nystatin) 500,000 unit PO TID [facility] Last Admin: 10/13/18 21:18 Dose: 500,000 unit Ranitidine HCl (Zantac -) 300 mg PO DAILY [facility] Last Admin: 10/13/18 09:36 Dose: 300 mg - Objective Vital Signs: Vital Signs Temperature 98.2 F 10/13/18 18:00 Pulse Rate 110 H 10/13/18 18:00 Respiratory Rate 18 10/13/18 18:00 Blood Pressure 136/69 10/13/18 18:00 O2 Sat by Pulse Oximetry (%) 97 10/13/18 09:00 Labs: CBC, BMP 10/13/18 06:15 10/12/18 05:00
--- NOTE | 2018-10-13 23:57 | CONSULT ---
Consult Consult Specialty:: endocrine Referred by:: dr.rocco das Reason for Consultation:: hypothyroidism - History of Present Illness Chief Complaint: weakness and lethargic History of Present Illness: 73 yo F with a hx of multiple myeloma (dx 4 years ago; refused chemo in past; followed by Dr. Stuart), HTN, HLD, and hypothyroidism presents to the emergency department referred by Dr. Stuart for N/V, failure to thrive, DEBBIE, and worsening weakness. Per the patient, she states she has had N/V she has had history of low thyroid but dose not remember taking the medication.she feel she is forgetful,weak,cold and dry skin - History Source History Provided By: Patient - Past Medical History Cardio/Vascular: Yes: HTN Pulmonary: Yes: Asthma ...: No - Alcohol/Substance Use Hx Alcohol Use: No - Smoking History Smoking history: Never smoked Have you smoked in the past 12 months: No Aproximately how many cigarettes per day: 0 If you are a former smoker, when did you quit?: 1987 Home Medications - Allergies Allergies/Adverse Reactions: Allergies Allergy/AdvReac Type Severity Reaction Status Date / Time Penicillins Allergy Severe Rash Verified 04/21/18 09:40 - Home Medications Home Medications: Ambulatory Orders Gabapentin 300 mg PO TID 06/14/13 Atorvastatin Ca [Lipitor] 40 mg PO HS 10/11/18 Diltiazem Cd [Cardizem Cd -] 240 mg PO DAILY 10/11/18 Famotidine [Pepcid] 40 mg PO DAILY 10/11/18 Levothyroxine [Synthroid -] 25 mcg PO DAILY 10/11/18 Losartan Potassium 25 mg PO DAILY 10/11/18 Meloxicam 15 mg PO DAILY 10/11/18 Methimazole 10 mg PO BID 10/11/18 Chapman-3/Dha/Epa/Fish Oil [Chapman 3 500 Softgel] 1 each PO DAILY 10/11/18 Omeprazole 20 mg PO DAILY 10/11/18 Review of Systems - Review of Systems Constitutional: reports: Lethargy, Weakness Eyes: reports: No Symptoms HENT: reports: No Symptoms Neck: reports: Swollen Glands Cardiovascular: reports: Edema, Shortness of Breath Respiratory: reports: Exercise Intolerance, SOB on Exertion Gastrointestinal: reports: Bloating Genitourinary: reports: No Symptoms Musculoskeletal: reports: No Symptoms Integumentary: reports: No Symptoms Neurological: reports: Numbness Physical Exam Vital Signs: Vital Signs Temperature 99.3 F 10/13/18 22:00 Pulse Rate 96 H 10/13/18 22:00 Respiratory Rate 20 10/13/18 22:00 Blood Pressure 133/72 10/13/18 22:00 O2 Sat by Pulse Oximetry (%) 95 10/13/18 21:00 Constitutional: Yes: Calm Eyes: Yes: EOM Intact HENT: Yes: Normocephalic Neck: Yes: Thyromegaly Cardiovascular: Yes: Regular Rate and Rhythm Respiratory: Yes: CTA Bilaterally Gastrointestinal: Yes: Normal Bowel Sounds ...Rectal Exam: Yes: Deferred Renal/: Yes: WNL Musculoskeletal: Yes: WNL Extremities: Yes: WNL Edema: No Neurological: Yes: Alert, Oriented Labs: CBC, BMP 10/13/18 06:15 10/12/18 05:00 Problem List - Problems (1) Adult onset hypothyroidism Code(s): E03.8 - OTHER SPECIFIED HYPOTHYROIDISM (2) HLD (hyperlipidemia) Code(s): E78.5 - HYPERLIPIDEMIA, UNSPECIFIED (3) Multiple myeloma Code(s): C90.00 - MULTIPLE MYELOMA NOT HAVING ACHIEVED REMISSION Assessment/Plan Current Active Problems HLD (hyperlipidemia) (Acute) HTN (hypertension) (Acute) Multiple myeloma (Acute) Proteinuria (Acute) hypothryoidism adult onset \mami thyroiditis Abnormal Lab Results 10/13/18 06:15 RBC 2.73 L Hgb 8.9 L Hct 25.2 L Laboratory Results - last 24 hr 10/13/18 10/13/18 10/13/18 06:15 06:15 06:15 WBC 5.7 RBC 2.73 L Hgb 8.9 L Hct 25.2 L MCV 92.2 MCH 32.7 MCHC 35.4 RDW 15.0 Plt Count 241 MPV 7.5 Absolute Neuts (auto) 2.9 Neutrophils % 51.4 Lymphocytes % 38.8 Monocytes % 7.8 Eosinophils % 1.6 D Basophils % 0.4 Nucleated RBC % 0 Ferritin 181.5 Vitamin B12 636 Serum Folate 10 Laboratory Tests 10/12/18 05:00 TSH 14.90 H plan: SYNTHROID 25MCG AM DAILY FREE T4 ORDERED FOLLOW UP FOR TSH FREE T4 OUTPATIENT
[2018-10-14] MEDS ORDERED: PT OWN MED DRAWER 7, Y5N ONE (05:30)
[2018-10-14] MEDS: GABAPENTIN 300 MG CAPSULE (FP) PO SCH ×2 (05:54→14:04)
[2018-10-14] MEDS: HEPARIN NA (PORCINE) 5,000 UNITS/ML 1ML VIAL SQ SCH ×3 (05:54→21:48)
[2018-10-14] MEDS: NYSTATIN 500,000 UNITS TABLET PO SCH ×3 (05:55→22:05)
[2018-10-14] MEDS: LEVOTHYROXINE NA 25 MCG TABLET (FP) PO SCH (06:37)
[2018-10-14 07:33] LABS: BASO % 0.4 % (0-2.0); EOS % 1.6 % (0-4.5); HEMATOCRIT 27.4 % (32.4-45.2); HEMOGLOBIN 8.9 GM/dL (10.7-15.3); LYMPH % 44.4 % (8-40); MCH 30.6 pg (25.7-33.7); MCHC 32.5 g/dl (32.0-36.0); MEAN CELL VOLUME 94.2 fl (80-96); MEAN PLT VOLUME 7.2 fl (7.5-11.1); NEUT % 44.6 % (42.8-82.8); PLATELET COUNT 227 K/MM3 (134-434); RBC 2.91 M/mm3 (3.60-5.2); RDW 14.9 % (11.6-15.6); WHITE BLOOD COUNT 5.2 K/mm3 (4.0-10.0)
[2018-10-14 08:10] LABS: SERUM IRON SATURATION 40 % (15-55); TOTAL IRON BINDING CAPACITY 126 ug/dL (250-450); UIBC 75 ug/dL (118-369)
[2018-10-14 08:42] LABS: ALBUMIN 1.2 g/dl (3.4-5.0); ALK PHOS 66 U/L (45-117); ANION GAP 11 MMOL/L (8-16); BILIRUBIN,TOTAL 0.2 mg/dL (0.2-1); BLOOD UREA NITROGEN 15 mg/dL (7-18); CALCIUM 9.7 mg/dL (8.5-10.1); CHLORIDE 105 mmol/L (98-107); CO2 25 mmol/L (21-32); CREATININE 0.9 mg/dL (0.55-1.3); GLUCOSE,RANDOM 95 mg/dL (74-106); MAGNESIUM 2.2 mg/dL (1.8-2.4); POTASSIUM 3.7 mmol/L (3.5-5.1); SGOT/AST 14 U/L (15-37); SGPT/ALT 12 U/L (13-61); SODIUM 141 mmol/L (136-145); TOT PROT 7.9 g/dl (6.4-8.2)
[2018-10-14] MEDS: LOSARTAN POTASSIUM 25 MG TABLET PO SCH (09:49)
[2018-10-14] MEDS: RANITIDINE HCL 150 MG TABLET (FP) PO SCH (09:49)
[2018-10-14] MEDS: ALLOPURINOL 300 MG TABLET (FP) PO SCH (09:49)
[2018-10-14] MEDS ORDERED: BORTEZOMIB (VELCADE) 2.5 MG/ML SUB-Q INJECTION SQ ONE (13:30)
[2018-10-14] MEDS ORDERED: SODIUM CHLORIDE 1,000 ML IV SCH (14:00)
--- NOTE | 2018-10-14 14:29 | PN ---
Progress Note, Physician History of Present Illness: Pt seen and examined at bedside. She denies shortness of breath. SHe denies lower ext edema. - Current Medication List Current Medications: Active Medications Allopurinol (Zyloprim -) 300 mg PO DAILY [facility] Last Admin: 10/14/18 09:49 Dose: 300 mg Atorvastatin Calcium (Lipitor -) 40 mg PO HS [facility] Last Admin: 10/13/18 21:18 Dose: 40 mg Diltiazem HCl (Cardizem Cd -) 240 mg PO DAILY [facility] Last Admin: 10/14/18 09:49 Dose: 240 mg Gabapentin (Neurontin -) 300 mg PO TID [facility] Last Admin: 10/14/18 14:04 Dose: 300 mg Heparin Sodium (Porcine) (Heparin -) 5,000 unit SQ TID [facility] Last Admin: 10/14/18 14:04 Dose: 5,000 unit Sodium Chloride (Normal Saline -) 1,000 mls @ 42 mls/hr IV ASDIR [facility] Last Admin: 10/14/18 14:03 Dose: 42 mls/hr Levothyroxine Sodium (Synthroid -) 25 mcg PO DAILY@0700 [facility] Last Admin: 10/14/18 06:37 Dose: 25 mcg Losartan Potassium (Cozaar -) 25 mg PO DAILY [facility] Last Admin: 10/14/18 09:49 Dose: 25 mg Nystatin (Nystatin) 500,000 unit PO TID [facility] Last Admin: 10/14/18 05:55 Dose: 500,000 unit Ranitidine HCl (Zantac -) 300 mg PO DAILY [facility] Last Admin: 10/14/18 09:49 Dose: 300 mg - Objective Vital Signs: Vital Signs Temperature 98.6 F 10/14/18 10:00 Pulse Rate 105 H 10/14/18 10:00 Respiratory Rate 20 10/14/18 10:00 Blood Pressure 135/66 10/14/18 10:00 O2 Sat by Pulse Oximetry (%) 100 10/14/18 09:00 Constitutional: Yes: Calm Eyes: Yes: Conjunctiva Clear HENT: Yes: Atraumatic Neck: Yes: Supple Cardiovascular: Yes: S1, S2 Respiratory: Yes: CTA Bilaterally Gastrointestinal: Yes: Normal Bowel Sounds, Soft Genitourinary: Yes: WNL Musculoskeletal: Yes: WNL Edema: No Neurological: Yes: Oriented Psychiatric: Yes: Oriented Labs: CBC, BMP 10/14/18 07:00 10/14/18 07:00 Problem List - Problems (1) Proteinuria Code(s): R80.9 - PROTEINURIA, UNSPECIFIED (2) Multiple myeloma Code(s): C90.00 - MULTIPLE MYELOMA NOT HAVING ACHIEVED REMISSION (3) HTN (hypertension) Code(s): I10 - ESSENTIAL (PRIMARY) HYPERTENSION (4) HLD (hyperlipidemia) Code(s): E78.5 - HYPERLIPIDEMIA, UNSPECIFIED Assessment/Plan Current Medications Generic Name Dose Route Start Last Admin Trade Name Freq PRN Reason Stop Dose Admin Allopurinol 300 mg 10/11/18 18:15 10/14/18 09:49 Zyloprim - PO 300 mg DAILY [facility] Administration Atorvastatin Calcium 40 mg 10/12/18 22:00 10/13/18 21:18 Lipitor - PO 40 mg HS [facility] Administration Diltiazem HCl 240 mg 10/12/18 10:00 10/14/18 09:49 Cardizem Cd - PO 240 mg DAILY [facility] Administration Gabapentin 300 mg 10/12/18 06:00 10/14/18 14:04 Neurontin - PO 300 mg TID [facility] Administration Heparin Sodium (Porcine) 5,000 unit 10/12/18 06:00 10/14/18 14:04 Heparin - SQ 5,000 unit TID [facility] Administration Sodium Chloride 1,000 mls @ 42 mls/hr 10/14/18 14:00 10/14/18 14:03 Normal Saline - IV 42 mls/hr ASDIR [facility] Administration Levothyroxine Sodium 25 mcg 10/12/18 07:00 10/14/18 06:37 Synthroid - PO 25 mcg DAILY@0700 [facility] Administration Losartan Potassium 25 mg 10/12/18 10:00 10/14/18 09:49 Cozaar - PO 25 mg DAILY [facility] Administration Nystatin 500,000 unit 10/13/18 14:00 10/14/18 05:55 Nystatin PO 500,000 unit TID [facility] Administration Ranitidine HCl 300 mg 10/12/18 10:00 10/14/18 09:49 Zantac - PO 300 mg DAILY [facility] Administration Impression 1. proteinuria 2. multiple myeloma 3. failure to thrive 4. edema 5. htn 6. HLD 7. hypothyroidism Plan - increase cozaar to 50 mg - monitor bp - repeat urine studies in a few days - cont treatment for myeloma, hopefully proteinuria improved with myeloma treatment - will follow Dr Hameed
[2018-10-14] MEDS: DEXAMETHASONE INJECTION 20 MG in SODIUM CHLORIDE 100 ML IVPB ONE ×2 (14:42→18:02)
[2018-10-14] MEDS ORDERED: DEXAMETHASONE INJECTION 20 MG in SODIUM CHLORIDE 100 ML IVPB ONE (14:45)
--- NOTE | 2018-10-14 20:28 | PN ---
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
[2018-10-14] MEDS: SODIUM CHLORIDE 1,000 ML IV SCH (21:20)
[2018-10-14 21:42] LABS: ALBUMIN 1.3 g/dl (3.4-5.0); ALK PHOS 77 U/L (45-117); ANION GAP 12 MMOL/L (8-16); BILIRUBIN,TOTAL < 0.1 mg/dL (0.2-1); BLOOD UREA NITROGEN 14 mg/dL (7-18); CALCIUM 9.6 mg/dL (8.5-10.1); CHLORIDE 106 mmol/L (98-107); CO2 23 mmol/L (21-32); CREATININE 1.1 mg/dL (0.55-1.3); GLUCOSE,RANDOM 166 mg/dL (74-106); LDH 170 U/L (84-246); POTASSIUM 3.9 mmol/L (3.5-5.1); SGOT/AST 18 U/L (15-37); SGPT/ALT 13 U/L (13-61); SODIUM 141 mmol/L (136-145); TOT PROT 8.8 g/dl (6.4-8.2); URIC ACID 4.8 mg/dL (2.6-7.2)
[2018-10-14] MEDS: ATORVASTATIN CA 40 MG TABLET (FP) PO SCH (21:48)
--- NOTE | 2018-10-14 23:22 | PN ---
Progress Note, Physician - Current Medication List Current Medications: Active Medications Allopurinol (Zyloprim -) 300 mg PO DAILY [facility] Last Admin: 10/14/18 09:49 Dose: 300 mg Atorvastatin Calcium (Lipitor -) 40 mg PO HS [facility] Last Admin: 10/14/18 21:48 Dose: 40 mg Diltiazem HCl (Cardizem Cd -) 240 mg PO DAILY [facility] Last Admin: 10/14/18 09:49 Dose: 240 mg Heparin Sodium (Porcine) (Heparin -) 5,000 unit SQ TID [facility] Last Admin: 10/14/18 21:48 Dose: 5,000 unit Sodium Chloride (Normal Saline -) 1,000 mls @ 75 mls/hr IV ASDIR [facility] Last Admin: 10/14/18 21:20 Dose: 75 mls/hr Levothyroxine Sodium (Synthroid -) 25 mcg PO DAILY@0700 [facility] Last Admin: 10/14/18 06:37 Dose: 25 mcg Losartan Potassium (Cozaar -) 25 mg PO DAILY [facility] Last Admin: 10/14/18 09:49 Dose: 25 mg Nystatin (Nystatin) 500,000 unit PO TID [facility] Last Admin: 10/14/18 22:05 Dose: 500,000 unit Ranitidine HCl (Zantac -) 300 mg PO DAILY [facility] Last Admin: 10/14/18 09:49 Dose: 300 mg - Objective Vital Signs: Vital Signs Temperature 99 F 10/14/18 22:00 Pulse Rate 113 H 10/14/18 22:00 Respiratory Rate 20 10/14/18 22:00 Blood Pressure 129/69 10/14/18 22:00 O2 Sat by Pulse Oximetry (%) 100 10/14/18 20:58 Labs: CBC, BMP 10/14/18 07:00 10/14/18 20:30
[2018-10-15] MEDS: NYSTATIN 500,000 UNITS TABLET PO SCH ×3 (05:43→22:45)
[2018-10-15] MEDS: HEPARIN NA (PORCINE) 5,000 UNITS/ML 1ML VIAL SQ SCH ×3 (05:43→22:44)
[2018-10-15] MEDS: SODIUM CHLORIDE 1,000 ML IV SCH ×2 (05:56→22:49)
[2018-10-15] MEDS: LEVOTHYROXINE NA 25 MCG TABLET (FP) PO SCH (06:23)
[2018-10-15 07:07] LABS: BASO % 0.2 % (0-2.0); HEMATOCRIT 26.8 % (32.4-45.2); HEMOGLOBIN 8.9 GM/dL (10.7-15.3); LYMPH % 12.7 % (8-40); MCH 30.9 pg (25.7-33.7); MCHC 33.1 g/dl (32.0-36.0); MEAN CELL VOLUME 93.5 fl (80-96); MEAN PLT VOLUME 7.3 fl (7.5-11.1); MONO % 1.2 % (3.8-10.2); NEUT % 85.9 % (42.8-82.8); PLATELET COUNT 242 K/MM3 (134-434); RBC 2.87 M/mm3 (3.60-5.2); RDW 15.1 % (11.6-15.6); WHITE BLOOD COUNT 9.8 K/mm3 (4.0-10.0)
[2018-10-15 07:43] LABS: ALBUMIN 1.3 g/dl (3.4-5.0); ALK PHOS 67 U/L (45-117); ANION GAP 12 MMOL/L (8-16); BILIRUBIN,TOTAL 0.2 mg/dL (0.2-1); BLOOD UREA NITROGEN 17 mg/dL (7-18); CALCIUM 9.6 mg/dL (8.5-10.1); CHLORIDE 106 mmol/L (98-107); CO2 21 mmol/L (21-32); GLUCOSE,RANDOM 149 mg/dL (74-106); LDH 127 U/L (84-246); POTASSIUM 3.6 mmol/L (3.5-5.1); SGOT/AST 15 U/L (15-37); SGPT/ALT 14 U/L (13-61); SODIUM 139 mmol/L (136-145); TOT PROT 8.7 g/dl (6.4-8.2); URIC ACID 4.9 mg/dL (2.6-7.2)
[2018-10-15] MEDS: RANITIDINE HCL 150 MG TABLET (FP) PO SCH (09:00)
[2018-10-15] MEDS: ALLOPURINOL 300 MG TABLET (FP) PO SCH (09:00)
[2018-10-15] MEDS: LOSARTAN POTASSIUM 25 MG TABLET PO SCH (09:00)
[2018-10-15 09:15] LABS: INR 1.14 (0.83-1.09); PROTHROMBIN TIME (PATIENT) 13.5 SEC (9.7-13.0)
[2018-10-15 09:17] LABS: ACTIVATED PTT 40.7 SECONDS (25.2-36.5)
--- NOTE | 2018-10-15 10:09 | PN ---
Progress Note (short form) - Note Progress Note: Patient seen and examined Tolerated velcade without untoward effect Offers no complaints on ROS Last Vital Signs Temp Pulse Resp BP Pulse Ox 99.2 F 109 H 20 136/82 100 10/15/18 05:47 10/15/18 05:47 10/15/18 05:47 10/15/18 05:47 10/14/18 20:58 HEENT: ZOILA, EOM Intact Oropharynx: No thrush, No mucositis Cor: RSR, No murmurs, No gallops Lungs: Clear to P&A Abd: Soft, Normal bowel sounds, No organomegaly Ext:No significant edema Skin: No rashes, Integument intact CBC, BMP 10/15/18 06:15 10/15/18 06:15 Current Medications Generic Name Dose Route Start Last Admin Trade Name Freq PRN Reason Stop Dose Admin Allopurinol 300 mg 10/11/18 18:15 10/15/18 09:00 Zyloprim - PO 300 mg DAILY [facility] Administration Atorvastatin Calcium 40 mg 10/12/18 22:00 10/14/18 21:48 Lipitor - PO 40 mg HS [facility] Administration Diltiazem HCl 240 mg 10/12/18 10:00 10/15/18 09:00 Cardizem Cd - PO 240 mg DAILY [facility] Administration Heparin Sodium (Porcine) 5,000 unit 10/12/18 06:00 10/15/18 05:43 Heparin - SQ 5,000 unit TID [facility] Administration Sodium Chloride 1,000 mls @ 75 mls/hr 10/14/18 19:39 10/15/18 05:56 Normal Saline - IV 75 mls/hr ASDIR [facility] Administration Levothyroxine Sodium 25 mcg 10/12/18 07:00 10/15/18 06:23 Synthroid - PO 25 mcg DAILY@0700 [facility] Administration Losartan Potassium 25 mg 10/12/18 10:00 10/15/18 09:00 Cozaar - PO 25 mg DAILY [facility] Administration Nystatin 500,000 unit 10/13/18 14:00 10/15/18 05:43 Nystatin PO 500,000 unit TID [facility] Administration Ranitidine HCl 300 mg 10/12/18 10:00 10/15/18 09:00 Zantac - PO 300 mg DAILY [facility] Administration Impression: Active myeloma \Proteinuria S/P treatment with velcade Anemia Plan: CT sca Possible renal biopsy.
[2018-10-15 10:12] LABS: ANTIGLOMERULAR BASEMENT MEN.AB 2 units (0-20)
--- NOTE | 2018-10-15 12:29 | PN ---
Progress Note, Physician History of Present Illness: Pt seen and examined at bedside. She is awake and alert. - Current Medication List Current Medications: Active Medications Allopurinol (Zyloprim -) 300 mg PO DAILY [facility] Last Admin: 10/15/18 09:00 Dose: 300 mg Atorvastatin Calcium (Lipitor -) 40 mg PO HS [facility] Last Admin: 10/14/18 21:48 Dose: 40 mg Diltiazem HCl (Cardizem Cd -) 240 mg PO DAILY [facility] Last Admin: 10/15/18 09:00 Dose: 240 mg Heparin Sodium (Porcine) (Heparin -) 5,000 unit SQ TID [facility] Last Admin: 10/15/18 05:43 Dose: 5,000 unit Sodium Chloride (Normal Saline -) 1,000 mls @ 75 mls/hr IV ASDIR [facility] Last Admin: 10/15/18 05:56 Dose: 75 mls/hr Levothyroxine Sodium (Synthroid -) 25 mcg PO DAILY@0700 [facility] Last Admin: 10/15/18 06:23 Dose: 25 mcg Losartan Potassium (Cozaar -) 25 mg PO DAILY [facility] Last Admin: 10/15/18 09:00 Dose: 25 mg Nystatin (Nystatin) 500,000 unit PO TID [facility] Last Admin: 10/15/18 05:43 Dose: 500,000 unit Ranitidine HCl (Zantac -) 300 mg PO DAILY [facility] Last Admin: 10/15/18 09:00 Dose: 300 mg - Objective Vital Signs: Vital Signs Temperature 98.6 F 10/15/18 10:00 Pulse Rate 109 H 10/15/18 10:00 Respiratory Rate 20 10/15/18 10:00 Blood Pressure 147/80 10/15/18 10:00 O2 Sat by Pulse Oximetry (%) 98 10/15/18 09:00 Constitutional: Yes: Calm Eyes: Yes: Conjunctiva Clear HENT: Yes: Atraumatic Cardiovascular: Yes: S1, S2 Respiratory: Yes: CTA Bilaterally Gastrointestinal: Yes: Soft Genitourinary: Yes: WNL Musculoskeletal: Yes: WNL Edema: No Neurological: Yes: Oriented Psychiatric: Yes: Oriented Labs: CBC, BMP 10/15/18 06:15 10/15/18 06:15 INR, PTT INR 1.14 (0.83-1.09) H 10/15/18 06:15 Fibrinogen 362.0 mg/dL (238-498) 10/15/18 06:15 Problem List - Problems (1) Proteinuria Code(s): R80.9 - PROTEINURIA, UNSPECIFIED (2) Multiple myeloma Code(s): C90.00 - MULTIPLE MYELOMA NOT HAVING ACHIEVED REMISSION (3) HTN (hypertension) Code(s): I10 - ESSENTIAL (PRIMARY) HYPERTENSION (4) HLD (hyperlipidemia) Code(s): E78.5 - HYPERLIPIDEMIA, UNSPECIFIED Assessment/Plan Current Medications Generic Name Dose Route Start Last Admin Trade Name Freq PRN Reason Stop Dose Admin Allopurinol 300 mg 10/11/18 18:15 10/15/18 09:00 Zyloprim - PO 300 mg DAILY [facility] Administration Atorvastatin Calcium 40 mg 10/12/18 22:00 10/14/18 21:48 Lipitor - PO 40 mg HS [facility] Administration Diltiazem HCl 240 mg 10/12/18 10:00 10/15/18 09:00 Cardizem Cd - PO 240 mg DAILY [facility] Administration Heparin Sodium (Porcine) 5,000 unit 10/12/18 06:00 10/15/18 05:43 Heparin - SQ 5,000 unit TID [facility] Administration Sodium Chloride 1,000 mls @ 75 mls/hr 10/14/18 19:39 10/15/18 05:56 Normal Saline - IV 75 mls/hr ASDIR [facility] Administration Levothyroxine Sodium 25 mcg 10/12/18 07:00 10/15/18 06:23 Synthroid - PO 25 mcg DAILY@0700 [facility] Administration Losartan Potassium 25 mg 10/12/18 10:00 10/15/18 09:00 Cozaar - PO 25 mg DAILY [facility] Administration Nystatin 500,000 unit 10/13/18 14:00 10/15/18 05:43 Nystatin PO 500,000 unit TID [facility] Administration Ranitidine HCl 300 mg 10/12/18 10:00 10/15/18 09:00 Zantac - PO 300 mg DAILY [facility] Administration Impression 1. proteinuria 2. multiple myeloma 3. failure to thrive 4. edema 5. htn 6. HLD 7. hypothyroidism Plan - titrated up the dose of cozaar - monitor ua - serologies pending - possible kidney biopsy next week - cont treatment for myeloma, hopefully proteinuria improved with myeloma treatment - will follow Dr Hameed
--- NOTE | 2018-10-15 17:26 | PN ---
Progress Note, Physician Chief Complaint: comfortable in bed no complaint History of Present Illness: hypothyroidism thyroid mngoiter,still symptoms of hypothyroid since recently started med - Current Medication List Current Medications: Active Medications Allopurinol (Zyloprim -) 300 mg PO DAILY [facility] Last Admin: 10/15/18 09:00 Dose: 300 mg Atorvastatin Calcium (Lipitor -) 40 mg PO HS [facility] Last Admin: 10/14/18 21:48 Dose: 40 mg Diltiazem HCl (Cardizem Cd -) 240 mg PO DAILY [facility] Last Admin: 10/15/18 09:00 Dose: 240 mg Heparin Sodium (Porcine) (Heparin -) 5,000 unit SQ TID [facility] Last Admin: 10/15/18 12:59 Dose: 5,000 unit Sodium Chloride (Normal Saline -) 1,000 mls @ 75 mls/hr IV ASDIR [facility] Last Admin: 10/15/18 05:56 Dose: 75 mls/hr Levothyroxine Sodium (Synthroid -) 25 mcg PO DAILY@0700 [facility] Last Admin: 10/15/18 06:23 Dose: 25 mcg Losartan Potassium (Cozaar -) 25 mg PO DAILY [facility] Last Admin: 10/15/18 09:00 Dose: 25 mg Nystatin (Nystatin) 500,000 unit PO TID [facility] Last Admin: 10/15/18 12:59 Dose: 500,000 unit Ranitidine HCl (Zantac -) 300 mg PO DAILY [facility] Last Admin: 10/15/18 09:00 Dose: 300 mg - Objective Vital Signs: Vital Signs Temperature 98.8 F 10/15/18 14:12 Pulse Rate 101 H 10/15/18 14:12 Respiratory Rate 20 10/15/18 14:12 Blood Pressure 127/78 10/15/18 14:12 O2 Sat by Pulse Oximetry (%) 98 10/15/18 09:00 Constitutional: Yes: Well Nourished Eyes: Yes: EOM Intact HENT: Yes: Normocephalic Neck: Yes: Trachea Midline, Thyromegaly Cardiovascular: Yes: Regular Rate and Rhythm Respiratory: Yes: CTA Bilaterally Gastrointestinal: Yes: Normal Bowel Sounds ...Rectal Exam: Yes: WNL, Deferred Genitourinary: Yes: WNL Musculoskeletal: Yes: WNL Extremities: Yes: WNL Edema: No Neurological: Yes: Alert, Oriented, Lethargy, Numbness Labs: CBC, BMP 10/15/18 06:15 10/15/18 06:15 INR, PTT INR 1.14 (0.83-1.09) H 10/15/18 06:15 Fibrinogen 362.0 mg/dL (238-498) 10/15/18 06:15 Problem List - Problems (1) Adult onset hypothyroidism Code(s): E03.8 - OTHER SPECIFIED HYPOTHYROIDISM (2) HLD (hyperlipidemia) Code(s): E78.5 - HYPERLIPIDEMIA, UNSPECIFIED (3) Multiple myeloma Code(s): C90.00 - MULTIPLE MYELOMA NOT HAVING ACHIEVED REMISSION Assessment/Plan Current Active Problems Adult onset hypothyroidism (Acute) HLD (hyperlipidemia) (Acute) HTN (hypertension) (Acute) Multiple myeloma (Acute) Proteinuria (Acute) Abnormal Lab Results 10/13/18 10/14/18 10/15/18 06:15 20:30 06:15 RBC Hgb Hct MPV Absolute Neuts (auto) Neutrophils % Monocytes % PT with INR 13.50 H INR 1.14 H PTT (Actin FS) 40.7 H Random Glucose 166 H Total Bilirubin < 0.1 L Total Protein 8.8 H Albumin 1.3 L Albumin (PEP) 1.9 L Globulin 6.0 H Albumin/Globulin Ratio 0.3 L Beta Globulins 4.6 H MAURICE M-Alfredo 3.9 H CINTIA Screen Positive H CINTIA Speckled Pattern 1:160 H 10/15/18 10/15/18 06:15 06:15 RBC 2.87 L Hgb 8.9 L Hct 26.8 L MPV 7.3 L Absolute Neuts (auto) 8.4 H Neutrophils % 85.9 H D Monocytes % 1.2 L D PT with INR INR PTT (Actin FS) Random Glucose 149 H Total Bilirubin Total Protein 8.7 H Albumin 1.3 L Albumin (PEP) Globulin Albumin/Globulin Ratio Beta Globulins MAURICE M-Alfredo CINTIA Screen CINTIA Speckled Pattern Laboratory Results - last 24 hr 10/13/18 10/14/18 10/15/18 06:15 20:30 06:15 WBC RBC Hgb Hct MCV MCH MCHC RDW Plt Count MPV Absolute Neuts (auto) Neutrophils % Lymphocytes % Monocytes % Eosinophils % Basophils % Nucleated RBC % PT with INR 13.50 H INR 1.14 H PTT (Actin FS) 40.7 H Fibrinogen Sodium 141 Potassium 3.9 Chloride 106 Carbon Dioxide 23 Anion Gap 12 BUN 14 Creatinine 1.1 Creat Clearance w eGFR 48.55 Random Glucose 166 H Uric Acid 4.8 Calcium 9.6 Total Bilirubin < 0.1 L AST 18 ALT 13 Alkaline Phosphatase 77 LD Total 170 Total Protein 8.8 H Total Protein (PEP) 7.9 Albumin 1.3 L Albumin (PEP) 1.9 L Globulin 6.0 H Albumin/Globulin Ratio 0.3 L Beta Globulins 4.6 H MAURICE M-Alfredo 3.9 H CINTIA Screen Positive H CINTIA Homogeneous Pattern TNP CINTIA Nucleolar Pattern TNP CINTIA Spindle Ave Pattern TNP CINTIA Midbody Pattern TNP CINTIA Centriole Pattern TNP CINTIA Nuclear Dot Pattern TNP CINTIA PCNA Pattern TNP CINTIA Nuclear Membr Pat TNP CINTIA Speckled Pattern 1:160 H CINTIA Centromere Pattern TNP Glomerular Base Memb Ab 2 10/15/18 10/15/18 10/15/18 06:15 06:15 06:15 WBC 9.8 RBC 2.87 L Hgb 8.9 L Hct 26.8 L MCV 93.5 MCH 30.9 MCHC 33.1 RDW 15.1 Plt Count 242 MPV 7.3 L Absolute Neuts (auto) 8.4 H Neutrophils % 85.9 H D Lymphocytes % 12.7 D Monocytes % 1.2 L D Eosinophils % 0.0 D Basophils % 0.2 Nucleated RBC % 0 PT with INR INR PTT (Actin FS) Fibrinogen 362.0 Sodium 139 Potassium 3.6 Chloride 106 Carbon Dioxide 21 Anion Gap 12 BUN 17 Creatinine 1.0 Creat Clearance w eGFR 54.20 Random Glucose 149 H Uric Acid 4.9 Calcium 9.6 Total Bilirubin 0.2 AST 15 ALT 14 Alkaline Phosphatase 67 LD Total 127 Total Protein 8.7 H Total Protein (PEP) Albumin 1.3 L Albumin (PEP) Globulin Albumin/Globulin Ratio Beta Globulins MAURICE M-Alfredo CINTIA Screen CINTIA Homogeneous Pattern CINTIA Nucleolar Pattern CINTIA Spindle Ave Pattern CINTIA Midbody Pattern CINTIA Centriole Pattern CINTIA Nuclear Dot Pattern CINTIA PCNA Pattern CINTIA Nuclear Membr Pat CINTIA Speckled Pattern CINTIA Centromere Pattern Glomerular Base Memb Ab Laboratory Tests 10/14/18 07:00 Free T4 0.61 L plan: Current Medications Generic Name Dose Route Start Last Admin Trade Name Freq PRN Reason Stop Dose Admin Allopurinol 300 mg 10/11/18 18:15 10/15/18 09:00 Zyloprim - PO 300 mg DAILY [facility] Administration Atorvastatin Calcium 40 mg 10/12/18 22:00 10/14/18 21:48 Lipitor - PO 40 mg HS [facility] Administration Diltiazem HCl 240 mg 10/12/18 10:00 10/15/18 09:00 Cardizem Cd - PO 240 mg DAILY [facility] Administration Heparin Sodium (Porcine) 5,000 unit 10/12/18 06:00 10/15/18 12:59 Heparin - SQ 5,000 unit TID [facility] Administration Sodium Chloride 1,000 mls @ 75 mls/hr 10/14/18 19:39 10/15/18 05:56 Normal Saline - IV 75 mls/hr ASDIR [facility] Administration Levothyroxine Sodium 25 mcg 10/12/18 07:00 10/15/18 06:23 Synthroid - PO 25 mcg DAILY@0700 [facility] Administration Losartan Potassium 25 mg 10/12/18 10:00 10/15/18 09:00 Cozaar - PO 25 mg DAILY [facility] Administration Nystatin 500,000 unit 10/13/18 14:00 10/15/18 12:59 Nystatin PO 500,000 unit TID [facility] Administration Ranitidine HCl 300 mg 10/12/18 10:00 10/15/18 09:00 Zantac - PO 300 mg DAILY [facility] Administration
[2018-10-15 18:17] LABS: ATYPICAL pANCA <1:20 titer (Neg:<1:20); C-ANCA <1:20 titer (Neg:<1:20); P-ANCA <1:20 titer (Neg:<1:20)
[2018-10-15] MEDS ORDERED: PT OWN MED DRAWER 7, Y5N ONE (20:50)
[2018-10-15] MEDS: ATORVASTATIN CA 40 MG TABLET (FP) PO SCH (22:44)
--- NOTE | 2018-10-15 23:11 | PN ---
Progress Note, Physician - Current Medication List Current Medications: Active Medications Allopurinol (Zyloprim -) 300 mg PO DAILY [facility] Last Admin: 10/15/18 09:00 Dose: 300 mg Atorvastatin Calcium (Lipitor -) 40 mg PO HS [facility] Last Admin: 10/15/18 22:44 Dose: 40 mg Diltiazem HCl (Cardizem Cd -) 240 mg PO DAILY [facility] Last Admin: 10/15/18 09:00 Dose: 240 mg Heparin Sodium (Porcine) (Heparin -) 5,000 unit SQ TID [facility] Last Admin: 10/15/18 22:44 Dose: 5,000 unit Sodium Chloride (Normal Saline -) 1,000 mls @ 75 mls/hr IV ASDIR [facility] Last Admin: 10/15/18 22:49 Dose: 75 mls/hr Levothyroxine Sodium (Synthroid -) 25 mcg PO DAILY@0700 [facility] Last Admin: 10/15/18 06:23 Dose: 25 mcg Losartan Potassium (Cozaar -) 25 mg PO DAILY [facility] Last Admin: 10/15/18 09:00 Dose: 25 mg Nystatin (Nystatin) 500,000 unit PO TID [facility] Last Admin: 10/15/18 22:45 Dose: 500,000 unit Ranitidine HCl (Zantac -) 300 mg PO DAILY [facility] Last Admin: 10/15/18 09:00 Dose: 300 mg - Objective Vital Signs: Vital Signs Temperature 99.2 F 10/15/18 18:02 Pulse Rate 105 H 10/15/18 18:02 Respiratory Rate 18 10/15/18 18:02 Blood Pressure 123/76 10/15/18 18:02 O2 Sat by Pulse Oximetry (%) 98 10/15/18 09:00 Labs: CBC, BMP 10/15/18 06:15 10/15/18 06:15 INR, PTT INR 1.14 (0.83-1.09) H 10/15/18 06:15 Fibrinogen 362.0 mg/dL (238-498) 10/15/18 06:15
[2018-10-16] MEDS: LEVOTHYROXINE NA 25 MCG TABLET (FP) PO SCH (06:49)
[2018-10-16] MEDS: HEPARIN NA (PORCINE) 5,000 UNITS/ML 1ML VIAL SQ SCH ×3 (06:49→21:27)
[2018-10-16] MEDS: NYSTATIN 500,000 UNITS TABLET PO SCH ×3 (06:49→21:28)
--- NOTE | 2018-10-16 09:57 | PN ---
Progress Note (short form) - Note Progress Note: RENAL Pt is awake and alert comfortable Last Vital Signs Temp Pulse Resp BP Pulse Ox 98.3 F 90 18 130/82 98 10/16/18 06:20 10/16/18 06:20 10/16/18 06:20 10/16/18 06:20 10/15/18 21:00 lungs clear cvs s1s2 rr abd soft ext trace edema neuro a+ox3 CBC, BMP 10/15/18 06:15 10/15/18 06:15 Current Medications Generic Name Dose Route Start Last Admin Trade Name Edgar PRN Reason Stop Dose Admin Allopurinol 300 mg 10/11/18 18:15 10/15/18 09:00 Zyloprim - PO 300 mg DAILY [facility] Administration Atorvastatin Calcium 40 mg 10/12/18 22:00 10/15/18 22:44 Lipitor - PO 40 mg HS [facility] Administration Diltiazem HCl 240 mg 10/12/18 10:00 10/15/18 09:00 Cardizem Cd - PO 240 mg DAILY [facility] Administration Heparin Sodium (Porcine) 5,000 unit 10/12/18 06:00 10/16/18 06:49 Heparin - SQ 5,000 unit TID [facility] Administration Sodium Chloride 1,000 mls @ 75 mls/hr 10/14/18 19:39 10/15/18 22:49 Normal Saline - IV 75 mls/hr ASDIR [facility] Administration Levothyroxine Sodium 25 mcg 10/12/18 07:00 10/16/18 06:49 Synthroid - PO 25 mcg DAILY@0700 [facility] Administration Losartan Potassium 25 mg 10/12/18 10:00 10/15/18 09:00 Cozaar - PO 25 mg DAILY [facility] Administration Nystatin 500,000 unit 10/13/18 14:00 10/16/18 06:49 Nystatin PO 500,000 unit TID [facility] Administration Ranitidine HCl 300 mg 10/12/18 10:00 10/15/18 09:00 Zantac - PO 300 mg DAILY [facility] Administration Impression 1. proteinuria 2. multiple myeloma- kidneys are not big to suggest infiltrative process 3. failure to thrive 4. edema 5. htn 6. HLD 7. hypothyroidism 8 severe hypoalbuminemia with a high globulin Plan - increase losartan - monitor ua - serologies pending - possible kidney biopsy next week - give ddavp before biopsy MV
[2018-10-16] MEDS ORDERED: PT OWN MED DRAWER 7, Y5N ONE (10:26)
[2018-10-16] MEDS: ALLOPURINOL 300 MG TABLET (FP) PO SCH (10:52)
[2018-10-16] MEDS: LOSARTAN POTASSIUM 25 MG TABLET PO SCH (10:52)
[2018-10-16] MEDS: RANITIDINE HCL 150 MG TABLET (FP) PO SCH (10:52)
[2018-10-16] MEDS: SODIUM CHLORIDE 1,000 ML IV SCH (10:52)
--- NOTE | 2018-10-16 13:25 | CON.GI ---
Consult Consult Specialty:: GI Referred by:: Dr Stuart/Italo/Milton Benavidse - History of Present Illness History of Present Illness: 73 y/o F was asked to be seen after Fundoplication done 12/[address] Menjivar. She complains of nausea. She denies dysphagia, vomiting, chest pain, and weight loss. She tolerates her diet. - Past Medical History [employer]: Yes: Other (Multiple myeloma,CKD) Cardio/Vascular: Yes: HTN Pulmonary: Yes: Asthma ...: No - Alcohol/Substance Use Hx Alcohol Use: No - Smoking History Smoking history: Never smoked Have you smoked in the past 12 months: No Aproximately how many cigarettes per day: 0 If you are a former smoker, when did you quit?: 1987 Home Medications - Allergies Allergies/Adverse Reactions: Allergies Allergy/AdvReac Type Severity Reaction Status Date / Time Penicillins Allergy Severe Rash Verified 04/21/18 09:40 - Home Medications Home Medications: Ambulatory Orders Gabapentin 300 mg PO TID 06/14/13 Atorvastatin Ca [Lipitor] 40 mg PO HS 10/11/18 Diltiazem Cd [Cardizem Cd -] 240 mg PO DAILY 10/11/18 Famotidine [Pepcid] 40 mg PO DAILY 10/11/18 Levothyroxine [Synthroid -] 25 mcg PO DAILY 10/11/18 Losartan Potassium 25 mg PO DAILY 10/11/18 Meloxicam 15 mg PO DAILY 10/11/18 Methimazole 10 mg PO BID 10/11/18 [place]-3/Dha/Epa/Fish Oil [[place] 3 500 Softgel] 1 each PO DAILY 10/11/18 Omeprazole 20 mg PO DAILY 10/11/18 Review of Systems - Review of Systems Constitutional: denies: No Symptoms, Chills, Diaphoresis, Fever, Lethargy, Loss of Appetite, Malaise, Night Sweats, Unintentional Wgt. Loss, Weakness, Other Eyes: denies: No Symptoms, Blind Spots, Blurred Vision, Double Vision, Eye Pain , Floaters, Photophobia, Recent Change in Vision, Other HENT: denies: No Symptoms, Difficult Swallowing, Ear Discharge, Ear Pain, Epistaxis, Gingival Bleeding, Hearing Loss, Mouth Swelling, Nasal Congestion, Ocular Prosthesis, Throat Pain, Toothache, Ringing in Ears, Other Neck: denies: No Symptoms, Decreased ROM, Lumps, Pain on Movement, Stiffness, Swollen Glands, Tenderness, Other Respiratory: denies: No Symptoms, Cough, Exercise Intolerance, Hemoptysis, Orthopnea, PND, Snoring, SOB, SOB on Exertion, Wheezing, Other Gastrointestinal: reports: Nausea. denies: No Symptoms, Abdominal Pain, Bloating, Constipation, Dysphagia, Indigestion, Melena, Rectal Bleeding, Vomiting Physical Exam-GI Vital Signs: Vital Signs Temperature 98.3 F 10/16/18 06:20 Pulse Rate 90 10/16/18 06:20 Respiratory Rate 18 10/16/18 06:20 Blood Pressure 130/82 10/16/18 06:20 O2 Sat by Pulse Oximetry (%) 98 10/15/18 21:00 Constitutional: Yes: Well Nourished Eyes: Yes: Conjunctiva Clear HENT: Yes: Atraumatic Neck: Yes: Supple Cardiovascular: Yes: Regular Rate and Rhythm Respiratory: Yes: CTA Bilaterally ...Auscultate: No: Hypoactive Bowel Sounds ...Palpate: Yes: Soft. No: Firm/Rigid, Hepatomegaly, Mass, Pulsatile Mass, Splenomegaly, Tenderness Labs: CBC, BMP 10/15/18 06:15 10/15/18 06:15 INR, PTT INR 1.14 (0.83-1.09) H 10/15/18 06:15 Fibrinogen 362.0 mg/dL (238-498) 10/15/18 06:15 Home Medications Medication Instructions Recorded Gabapentin 300 mg PO TID 06/14/13 Atorvastatin Ca [Lipitor] 40 mg PO HS 10/11/18 Diltiazem Cd [Cardizem Cd -] 240 mg PO DAILY 10/11/18 Famotidine [Pepcid] 40 mg PO DAILY 10/11/18 Levothyroxine [Synthroid -] 25 mcg PO DAILY 10/11/18 Losartan Potassium 25 mg PO DAILY 10/11/18 Meloxicam 15 mg PO DAILY 10/11/18 Methimazole 10 mg PO BID 10/11/18 [place]-3/Dha/Epa/Fish Oil [[place] 3 1 each PO DAILY 10/11/18 500 Softgel] Omeprazole 20 mg PO DAILY 10/11/18 Problem List - Problems (1) Nausea Assessment/Plan: r> Ranitidine 150 mg bid Reglan 5mg 30 min ac made aware to follow up after discharge soft diet Code(s): R11.0 - NAUSEA (2) Anemia Assessment/Plan: R> stool guaiac od x 3 further gi w/u as an outpatient the patient was made aware to follow-up as an outpatient Code(s): D64.9 - ANEMIA, UNSPECIFIED (3) Anemia Code(s): D64.9 - ANEMIA, UNSPECIFIED
[2018-10-16] MEDS ORDERED: ONDANSETRON 4 MG/2 ML VIAL IVPUSH ONE (14:00)
[2018-10-16] MEDS: METOCLOPRAMIDE HCL 10 MG TABLET (FP) PO SCH (17:34)
--- NOTE | 2018-10-16 17:47 | PN ---
Progress Note (short form) - Note Progress Note: Patient seen in follow up. No new complaints. No significant events overnight. Inpatient Meds reviewed. Current Medications Generic Name Dose Route Start Last Admin Trade Name Edgar PRN Reason Stop Dose Admin Allopurinol 300 mg 10/11/18 18:15 10/16/18 10:52 Zyloprim - PO 300 mg DAILY [facility] Administration Atorvastatin Calcium 40 mg 10/12/18 22:00 10/15/18 22:44 Lipitor - PO 40 mg HS [facility] Administration Diltiazem HCl 240 mg 10/12/18 10:00 10/16/18 10:52 Cardizem Cd - PO 240 mg DAILY [facility] Administration Heparin Sodium (Porcine) 5,000 unit 10/12/18 06:00 10/16/18 14:29 Heparin - SQ 5,000 unit TID [facility] Administration Sodium Chloride 1,000 mls @ 42 mls/hr 10/16/18 10:15 10/16/18 10:52 Normal Saline - IV 42 mls/hr ASDIR [facility] Administration Levothyroxine Sodium 25 mcg 10/12/18 07:00 10/16/18 06:49 Synthroid - PO 25 mcg DAILY@0700 [facility] Administration Losartan Potassium 25 mg 10/12/18 10:00 10/16/18 10:52 Cozaar - PO 25 mg DAILY [facility] Administration Metoclopramide HCl 5 mg 10/16/18 16:30 10/16/18 17:34 Reglan - PO 5 mg TIDAC [facility] Administration Nystatin 500,000 unit 10/13/18 14:00 10/16/18 14:29 Nystatin PO 500,000 unit TID [facility] Administration Ranitidine HCl 300 mg 10/12/18 10:00 10/16/18 10:52 Zantac - PO 300 mg DAILY [facility] Administration On Examination: Last Vital Signs Temp Pulse Resp BP Pulse Ox 98.5 F 87 18 125/69 96 10/16/18 17:10 10/16/18 17:10 10/16/18 17:10 10/16/18 17:10 10/16/18 09:00 General: In no acute distress, lying comfortably in bed. Extremities: No pallor or icterus. No pedal edema. No palpable lymphadenopathy. CVS: S1, S2, regular, no gallop or murmur. Chest: good air entry bilaterally, clear Abdomen: Non-distended, non-tender, no palpable organomegaly. Neuro: Alert, oriented, non-focal. Labs: CBC, BMP 10/15/18 06:15 10/15/18 06:15 Assessment. IgA myeloma, with anemia and proteinuria (normal creatinine). Untreated previously. Started treatment with Velcade/Dex - 1st dose on 10/14.
[2018-10-16] MEDS: ATORVASTATIN CA 40 MG TABLET (FP) PO SCH (21:28)
--- NOTE | 2018-10-16 23:21 | PN ---
Progress Note, Physician - Current Medication List Current Medications: Active Medications Allopurinol (Zyloprim -) 300 mg PO DAILY [facility] Last Admin: 10/16/18 10:52 Dose: 300 mg Atorvastatin Calcium (Lipitor -) 40 mg PO HS [facility] Last Admin: 10/16/18 21:28 Dose: 40 mg Diltiazem HCl (Cardizem Cd -) 240 mg PO DAILY [facility] Last Admin: 10/16/18 10:52 Dose: 240 mg Heparin Sodium (Porcine) (Heparin -) 5,000 unit SQ TID [facility] Last Admin: 10/16/18 21:27 Dose: 5,000 unit Sodium Chloride (Normal Saline -) 1,000 mls @ 42 mls/hr IV ASDIR [facility] Last Admin: 10/16/18 10:52 Dose: 42 mls/hr Levothyroxine Sodium (Synthroid -) 25 mcg PO DAILY@0700 [facility] Last Admin: 10/16/18 06:49 Dose: 25 mcg Losartan Potassium (Cozaar -) 25 mg PO DAILY [facility] Last Admin: 10/16/18 10:52 Dose: 25 mg Metoclopramide HCl (Reglan -) 5 mg PO TIDAC [facility] Last Admin: 10/16/18 17:34 Dose: 5 mg Nystatin (Nystatin) 500,000 unit PO TID [facility] Last Admin: 10/16/18 21:28 Dose: 500,000 unit Ranitidine HCl (Zantac -) 300 mg PO DAILY [facility] Last Admin: 10/16/18 10:52 Dose: 300 mg - Objective Vital Signs: Vital Signs Temperature 98.5 F 10/16/18 17:10 Pulse Rate 87 10/16/18 17:10 Respiratory Rate 18 10/16/18 19:44 Blood Pressure 125/69 10/16/18 17:10 O2 Sat by Pulse Oximetry (%) 96 10/16/18 19:44 Labs: CBC, BMP 10/15/18 06:15 10/15/18 06:15 INR, PTT INR 1.14 (0.83-1.09) H 10/15/18 06:15 Fibrinogen 362.0 mg/dL (238-498) 10/15/18 06:15
[2018-10-17] MEDS: METOCLOPRAMIDE HCL 10 MG TABLET (FP) PO SCH ×3 (06:20→16:51)
[2018-10-17] MEDS: HEPARIN NA (PORCINE) 5,000 UNITS/ML 1ML VIAL SQ SCH ×3 (06:20→21:32)
[2018-10-17] MEDS: LEVOTHYROXINE NA 25 MCG TABLET (FP) PO SCH (06:20)
[2018-10-17] MEDS: NYSTATIN 500,000 UNITS TABLET PO SCH ×3 (06:21→21:32)
[2018-10-17 07:37] LABS: BASO % 0.3 % (0-2.0); HEMATOCRIT 27.5 % (32.4-45.2); HEMOGLOBIN 9.1 GM/dL (10.7-15.3); LYMPH % 30.7 % (8-40); MCH 30.6 pg (25.7-33.7); MEAN CELL VOLUME 92.9 fl (80-96); MEAN PLT VOLUME 7.6 fl (7.5-11.1); MONO % 6.1 % (3.8-10.2); NEUT % 62.9 % (42.8-82.8); PLATELET COUNT 253 K/MM3 (134-434); RBC 2.96 M/mm3 (3.60-5.2); RDW 14.9 % (11.6-15.6); WHITE BLOOD COUNT 9.6 K/mm3 (4.0-10.0)
[2018-10-17 07:41] LABS: INR 1.06 (0.83-1.09); PROTHROMBIN TIME (PATIENT) 12.5 SEC (9.7-13.0)
[2018-10-17 08:02] LABS: ALBUMIN 1.2 g/dl (3.4-5.0); ALK PHOS 59 U/L (45-117); ANION GAP 10 MMOL/L (8-16); BILIRUBIN,TOTAL 0.1 mg/dL (0.2-1); BLOOD UREA NITROGEN 18 mg/dL (7-18); CALCIUM 9.2 mg/dL (8.5-10.1); CHLORIDE 104 mmol/L (98-107); CO2 24 mmol/L (21-32); CREATININE 0.9 mg/dL (0.55-1.3); GLUCOSE,RANDOM 86 mg/dL (74-106); POTASSIUM 3.7 mmol/L (3.5-5.1); SGOT/AST 17 U/L (15-37); SGPT/ALT 15 U/L (13-61); SODIUM 138 mmol/L (136-145); TOT PROT 8.4 g/dl (6.4-8.2)
--- NOTE | 2018-10-17 10:03 | PN ---
Progress Note (short form) - Note Progress Note: RENAL Pt is awake and alert comfortable Last Vital Signs Temp Pulse Resp BP Pulse Ox 98.7 F 87 20 120/67 96 10/17/18 06:00 10/17/18 06:00 10/17/18 06:00 10/17/18 06:00 10/16/18 19:44 lungs clear cvs s1s2 rr abd soft ext trace edema neuro a+ox3 CBC, BMP 10/17/18 06:15 10/17/18 06:15 Current Medications Generic Name Dose Route Start Last Admin Trade Name Freq PRN Reason Stop Dose Admin Allopurinol 300 mg 10/11/18 18:15 10/16/18 10:52 Zyloprim - PO 300 mg DAILY [facility] Administration Atorvastatin Calcium 40 mg 10/12/18 22:00 10/16/18 21:28 Lipitor - PO 40 mg HS [facility] Administration Diltiazem HCl 240 mg 10/12/18 10:00 10/16/18 10:52 Cardizem Cd - PO 240 mg DAILY [facility] Administration Heparin Sodium (Porcine) 5,000 unit 10/12/18 06:00 10/17/18 06:20 Heparin - SQ 5,000 unit TID [facility] Administration Sodium Chloride 1,000 mls @ 42 mls/hr 10/16/18 10:15 10/16/18 10:52 Normal Saline - IV 42 mls/hr ASDIR [facility] Administration Levothyroxine Sodium 25 mcg 10/12/18 07:00 10/17/18 06:20 Synthroid - PO 25 mcg DAILY@0700 [facility] Administration Losartan Potassium 25 mg 10/12/18 10:00 10/16/18 10:52 Cozaar - PO 25 mg DAILY [facility] Administration Metoclopramide HCl 5 mg 10/16/18 16:30 10/17/18 06:20 Reglan - PO 5 mg TIDAC [facility] Administration Nystatin 500,000 unit 10/13/18 14:00 10/17/18 06:21 Nystatin PO 500,000 unit TID [facility] Administration Ranitidine HCl 300 mg 10/12/18 10:00 10/16/18 10:52 Zantac - PO 300 mg DAILY [facility] Administration Impression 1. proteinuria 2. multiple myeloma- kidneys are not big to suggest infiltrative process 3. failure to thrive 4. edema 5. htn 6. HLD 7. hypothyroidism 8 severe hypoalbuminemia with a high globulin Plan - monitor ua - serologies pending - possible kidney biopsy next week - give ddavp before biopsy- if she has amyloid, may bleed profusely MV
[2018-10-17] MEDS ORDERED: PT OWN MED DRAWER 7, Y5N ONE (10:32)
[2018-10-17] MEDS: RANITIDINE HCL 150 MG TABLET (FP) PO SCH (10:56)
[2018-10-17] MEDS: LOSARTAN POTASSIUM 25 MG TABLET PO SCH (10:57)
[2018-10-17] MEDS: SODIUM CHLORIDE 1,000 ML IV SCH (10:57)
[2018-10-17] MEDS: ALLOPURINOL 300 MG TABLET (FP) PO SCH (10:57)
--- NOTE | 2018-10-17 16:06 | PN ---
Progress Note (short form) - Note Progress Note: Patient seen in follow up. No new complaints. No significant events overnight. Inpatient Meds reviewed. Current Medications Allopurinol (Zyloprim -) 300 mg PO DAILY [facility] Last Admin: 10/17/18 10:57 Dose: 300 mg Atorvastatin Calcium (Lipitor -) 40 mg PO HS [facility] Last Admin: 10/16/18 21:28 Dose: 40 mg Diltiazem HCl (Cardizem Cd -) 240 mg PO DAILY [facility] Last Admin: 10/17/18 10:56 Dose: 240 mg Guaifenesin (Robitussin -) 10 ml PO Q6H PRN PRN Reason: COUGH Heparin Sodium (Porcine) (Heparin -) 5,000 unit SQ TID [facility] Last Admin: 10/17/18 13:48 Dose: 5,000 unit Sodium Chloride (Normal Saline -) 1,000 mls @ 42 mls/hr IV ASDIR [facility] Last Admin: 10/17/18 10:57 Dose: 42 mls/hr Levothyroxine Sodium (Synthroid -) 25 mcg PO DAILY@0700 [facility] Last Admin: 10/17/18 06:20 Dose: 25 mcg Losartan Potassium (Cozaar -) 25 mg PO DAILY [facility] Last Admin: 10/17/18 10:57 Dose: 25 mg Metoclopramide HCl (Reglan -) 5 mg PO TIDAC [facility] Last Admin: 10/17/18 10:56 Dose: 5 mg Nystatin (Nystatin) 500,000 unit PO TID [facility] Last Admin: 10/17/18 13:47 Dose: 500,000 unit Ranitidine HCl (Zantac -) 300 mg PO DAILY [facility] Last Admin: 10/17/18 10:56 Dose: 300 mg On Examination: Last Vital Signs Temp Pulse Resp BP Pulse Ox 98.7 F 91 H 20 106/62 97 10/17/18 13:27 10/17/18 13:27 10/17/18 13:27 10/17/18 13:27 10/17/18 09:00 General: In no acute distress, lying comfortably in bed. Extremities: No pallor or icterus. No pedal edema. No palpable lymphadenopathy. CVS: S1, S2, regular, no gallop or murmur. Chest: good air entry bilaterally, clear Abdomen: Non-distended, non-tender, no palpable organomegaly. Neuro: Alert, oriented, non-focal. Labs: CBC, BMP 10/17/18 06:15 10/17/18 06:15 Assessment. IgA myeloma, with anemia and proteinuria (normal creatinine). Untreated previously. Started treatment with Velcade/Dex - 1st dose on 10/14.
[2018-10-17] MEDS: ATORVASTATIN CA 40 MG TABLET (FP) PO SCH (21:32)
[2018-10-17] MEDS: guaiFENesin 200 MG/10 ML 10 ML UNIT-DOSE CUPS PO PRN (21:33)
--- NOTE | 2018-10-17 23:35 | PN ---
Progress Note, Physician History of Present Illness: Pt complains of a cough wc is dry and nonproductive - Current Medication List Current Medications: Active Medications Allopurinol (Zyloprim -) 300 mg PO DAILY [facility] Last Admin: 10/17/18 10:57 Dose: 300 mg Atorvastatin Calcium (Lipitor -) 40 mg PO HS [facility] Last Admin: 10/17/18 21:32 Dose: 40 mg Diltiazem HCl (Cardizem Cd -) 240 mg PO DAILY [facility] Last Admin: 10/17/18 10:56 Dose: 240 mg Guaifenesin (Robitussin -) 10 ml PO Q6H PRN PRN Reason: COUGH Last Admin: 10/17/18 21:33 Dose: 10 ml Heparin Sodium (Porcine) (Heparin -) 5,000 unit SQ TID [facility] Last Admin: 10/17/18 21:32 Dose: 5,000 unit Sodium Chloride (Normal Saline -) 1,000 mls @ 42 mls/hr IV ASDIR [facility] Last Admin: 10/17/18 10:57 Dose: 42 mls/hr Levothyroxine Sodium (Synthroid -) 25 mcg PO DAILY@0700 [facility] Last Admin: 10/17/18 06:20 Dose: 25 mcg Losartan Potassium (Cozaar -) 25 mg PO DAILY [facility] Last Admin: 10/17/18 10:57 Dose: 25 mg Metoclopramide HCl (Reglan -) 5 mg PO TIDAC [facility] Last Admin: 10/17/18 16:51 Dose: 5 mg Nystatin (Nystatin) 500,000 unit PO TID [facility] Last Admin: 10/17/18 21:32 Dose: 500,000 unit Ranitidine HCl (Zantac -) 300 mg PO DAILY [facility] Last Admin: 10/17/18 10:56 Dose: 300 mg - Objective Vital Signs: Vital Signs Temperature 99.8 F H 10/17/18 22:00 Pulse Rate 74 10/17/18 22:00 Respiratory Rate 20 10/17/18 22:00 Blood Pressure 103/59 L 10/17/18 22:00 O2 Sat by Pulse Oximetry (%) 97 10/17/18 20:06 Neck: Yes: WNL, Supple Cardiovascular: Yes: WNL, Regular Rate and Rhythm Respiratory: Yes: WNL, Regular, CTA Bilaterally Gastrointestinal: Yes: WNL, Normal Bowel Sounds, Soft Edema: LLE: Trace, RLE: Trace Labs: CBC, BMP 10/17/18 06:15 10/17/18 06:15 INR, PTT INR 1.06 (0.83-1.09) 10/17/18 06:15 Fibrinogen 334.0 mg/dL (238-498) 10/17/18 06:15 Problem List - Problems (1) Multiple myeloma Assessment/Plan: IgA myeloma S/P treatment w/ Velcade/dex Possible renal bx? Code(s): C90.00 - MULTIPLE MYELOMA NOT HAVING ACHIEVED REMISSION (2) Hypothyroidism Assessment/Plan: Cont levothyroxine Code(s): E03.9 - HYPOTHYROIDISM, UNSPECIFIED (3) Anemia Assessment/Plan: H/H stable Code(s): D64.9 - ANEMIA, UNSPECIFIED (4) HLD (hyperlipidemia) Assessment/Plan: Cont lipitor Code(s): E78.5 - HYPERLIPIDEMIA, UNSPECIFIED (5) HTN (hypertension) Assessment/Plan: BP stable Code(s): I10 - ESSENTIAL (PRIMARY) HYPERTENSION (6) Nausea Code(s): R11.0 - NAUSEA (7) Proteinuria Code(s): R80.9 - PROTEINURIA, UNSPECIFIED
[2018-10-18] MEDS: HEPARIN NA (PORCINE) 5,000 UNITS/ML 1ML VIAL SQ SCH ×3 (06:24→21:47)
[2018-10-18] MEDS: METOCLOPRAMIDE HCL 10 MG TABLET (FP) PO SCH ×3 (06:24→17:01)
[2018-10-18] MEDS: LEVOTHYROXINE NA 25 MCG TABLET (FP) PO SCH (06:24)
[2018-10-18] MEDS: NYSTATIN 500,000 UNITS TABLET PO SCH ×3 (06:24→21:47)
[2018-10-18] MEDS: LOSARTAN POTASSIUM 25 MG TABLET PO SCH (09:03)
[2018-10-18] MEDS: ALLOPURINOL 300 MG TABLET (FP) PO SCH (09:03)
[2018-10-18] MEDS: RANITIDINE HCL 150 MG TABLET (FP) PO SCH (09:03)
[2018-10-18] MEDS: SODIUM CHLORIDE 1,000 ML IV SCH ×2 (09:04→10:41)
[2018-10-18 09:07] LABS: URINE APPEARANCE CLEAR; URINE BILIRUBIN NEGATIVE (<2.0 mg/dL); URINE COLOR STRAW; URINE GLUCOSE (UA) NEGATIVE (NEGATIVE); URINE KETONE NEGATIVE (NEGATIVE); URINE LEUK ESTERASE NEGATIVE (NEGATIVE); URINE NITRITE NEGATIVE (NEGATIVE); URINE PROTEIN 3+ (NEGATIVE); URINE UROBILINOGEN NEGATIVE mg/dL (0.2-1.0)
[2018-10-18 09:12] LABS: EPI CELLS RARE /HPF (FEW); URINE MUCUS RARE
[2018-10-18 09:15] LABS: RATIO URIN PROTEIN/URIN CREAT 9.14 MG/DL
[2018-10-18] MEDS: guaiFENesin 200 MG/10 ML 10 ML UNIT-DOSE CUPS PO PRN (14:19)
--- NOTE | 2018-10-18 14:28 | PN ---
Progress Note, Physician History of Present Illness: Pt seen and examined at bedside. She is awake and alert. She denies shortness of breath. - Current Medication List Current Medications: Active Medications Allopurinol (Zyloprim -) 300 mg PO DAILY [facility] Last Admin: 10/18/18 09:03 Dose: 300 mg Atorvastatin Calcium (Lipitor -) 40 mg PO HS [facility] Last Admin: 10/17/18 21:32 Dose: 40 mg Diltiazem HCl (Cardizem Cd -) 240 mg PO DAILY [facility] Last Admin: 10/18/18 09:03 Dose: 240 mg Guaifenesin (Robitussin -) 10 ml PO Q6H PRN PRN Reason: COUGH Last Admin: 10/18/18 14:19 Dose: 10 ml Heparin Sodium (Porcine) (Heparin -) 5,000 unit SQ TID [facility] Last Admin: 10/18/18 13:43 Dose: Not Given Sodium Chloride (Normal Saline -) 1,000 mls @ 42 mls/hr IV ASDIR [facility] Last Admin: 10/18/18 10:41 Dose: Not Given Levothyroxine Sodium (Synthroid -) 25 mcg PO DAILY@0700 [facility] Last Admin: 10/18/18 06:24 Dose: 25 mcg Losartan Potassium (Cozaar -) 25 mg PO DAILY [facility] Last Admin: 10/18/18 09:03 Dose: 25 mg Metoclopramide HCl (Reglan -) 5 mg PO TIDAC [facility] Last Admin: 10/18/18 11:27 Dose: 5 mg Nystatin (Nystatin) 500,000 unit PO TID [facility] Last Admin: 10/18/18 14:19 Dose: 500,000 unit Ranitidine HCl (Zantac -) 300 mg PO DAILY [facility] Last Admin: 10/18/18 09:03 Dose: 300 mg - Objective Vital Signs: Vital Signs Temperature 98.5 F 10/18/18 13:56 Pulse Rate 91 H 10/18/18 13:56 Respiratory Rate 20 10/18/18 13:56 Blood Pressure 123/59 L 10/18/18 13:56 O2 Sat by Pulse Oximetry (%) 96 10/18/18 09:00 Constitutional: Yes: Calm Eyes: Yes: Conjunctiva Clear HENT: Yes: Atraumatic Neck: Yes: Supple Cardiovascular: Yes: S1, S2 Respiratory: Yes: CTA Bilaterally Gastrointestinal: Yes: Soft, Abdomen, Obese Genitourinary: Yes: WNL Musculoskeletal: Yes: WNL Edema: Yes Edema: LLE: Trace, RLE: Trace Neurological: Yes: Oriented Psychiatric: Yes: Oriented Labs: CBC, BMP 10/17/18 06:15 10/17/18 06:15 INR, PTT INR 1.06 (0.83-1.09) 10/17/18 06:15 Fibrinogen 334.0 mg/dL (238-498) 10/17/18 06:15 Problem List - Problems (1) Proteinuria Code(s): R80.9 - PROTEINURIA, UNSPECIFIED (2) Multiple myeloma Code(s): C90.00 - MULTIPLE MYELOMA NOT HAVING ACHIEVED REMISSION (3) HTN (hypertension) Code(s): I10 - ESSENTIAL (PRIMARY) HYPERTENSION (4) HLD (hyperlipidemia) Code(s): E78.5 - HYPERLIPIDEMIA, UNSPECIFIED Assessment/Plan Current Medications Generic Name Dose Route Start Last Admin Trade Name Freq PRN Reason Stop Dose Admin Allopurinol 300 mg 10/11/18 18:15 10/18/18 09:03 Zyloprim - PO 300 mg DAILY [facility] Administration Atorvastatin Calcium 40 mg 10/12/18 22:00 10/17/18 21:32 Lipitor - PO 40 mg HS [facility] Administration Diltiazem HCl 240 mg 10/12/18 10:00 10/18/18 09:03 Cardizem Cd - PO 240 mg DAILY [facility] Administration Guaifenesin 10 ml 10/17/18 12:35 10/18/18 14:19 Robitussin - PO 10 ml Q6H PRN Administration COUGH Heparin Sodium (Porcine) 5,000 unit 10/12/18 06:00 10/18/18 13:43 Heparin - SQ Not Given TID [facility] Sodium Chloride 1,000 mls @ 42 mls/hr 10/16/18 10:15 10/18/18 10:41 Normal Saline - IV Not Given ASDIR [facility] Levothyroxine Sodium 25 mcg 10/12/18 07:00 10/18/18 06:24 Synthroid - PO 25 mcg DAILY@0700 [facility] Administration Losartan Potassium 25 mg 10/12/18 10:00 10/18/18 09:03 Cozaar - PO 25 mg DAILY [facility] Administration Metoclopramide HCl 5 mg 10/16/18 16:30 10/18/18 11:27 Reglan - PO 5 mg TIDAC [facility] Administration Nystatin 500,000 unit 10/13/18 14:00 10/18/18 14:19 Nystatin PO 500,000 unit TID [facility] Administration Ranitidine HCl 300 mg 10/12/18 10:00 10/18/18 09:03 Zantac - PO 300 mg DAILY [facility] Administration Laboratory Tests 10/13/18 06:15 MAURICE M-Alfredo 3.9 H CINTIA Screen Positive H CINTIA Speckled Pattern 1:160 H CINTIA Centromere Pattern TNP c-ANCA <1:20 Proteinase 3 (PR3) <3.5 p-ANCA <1:20 Atypical p-ANCA <1:20 Myeloperoxidase Ab <9.0 Double Strand DNA Ab <1 Glomerular Base Memb Ab 2 Impression 1. proteinuria 2. multiple myeloma 3. failure to thrive 4. edema 5. htn 6. HLD 7. hypothyroidism 8. elevated PTT Plan - spoke to heme onc at length, pt has elevated ptt and is getting a workup. Pt is at risk for bleeding and kidney biopsy is held pending hematology workup - increase cozaar to 50 mg - renal workup in progress - cont treatment for myeloma, hopefully proteinuria improved with myeloma treatment - will follow Dr Hameed
[2018-10-18] MEDS ORDERED: LOSARTAN POTASSIUM 25 MG TABLET PO ONE (14:30)
[2018-10-18 16:24] LABS: TOTAL PROTEIN, URINE 1085.7 mg/dL (Not Estab.)
--- NOTE | 2018-10-18 16:48 | CON.ID ---
Consult Consult Specialty:: infectious disease Referred by:: dr russo Reason for Consultation:: cough possible pneumonia - History of Present Illness Chief Complaint: cough for one day History of Present Illness: 73 yo female with PMH MM admitted 10/11 with Nnausea vomiting failure to thrive she has IgA Myeloma and is s/p velcade and dexamethasone 10/14 no fevers other oh feels well nonproductive cough penicillin allergy was many many yers ago received ancef at time of carpal tunnel surgery without any side effects - History Source History Provided By: Patient - Past Medical History Cardio/Vascular: Yes: HTN Pulmonary: Yes: Asthma ...: No Heme/Onc: Yes: Other (Multple myeloma) - Past Surgical History Past Surgical History: Yes: Hysterectomy, Tubal Ligation Additional Surgical History: bilateral carpal tunnel. hiatal hernia surgery ( fundiplication) - Alcohol/Substance Use Hx Alcohol Use: No - Smoking History Smoking history: Never smoked Have you smoked in the past 12 months: No Aproximately how many cigarettes per day: 0 If you are a former smoker, when did you quit?: 1987 - Social History Usual Living Arrangement: Alone ADL: Independent Occupation: retired Place of : [facility] ([place]) History of Recent Travel: No Home Medications - Allergies Allergies/Adverse Reactions: Allergies Allergy/AdvReac Type Severity Reaction Status Date / Time Penicillins Allergy Severe Rash Verified 04/21/18 09:40 - Home Medications Home Medications: Ambulatory Orders Gabapentin 300 mg PO TID 06/14/13 Atorvastatin Ca [Lipitor] 40 mg PO HS 10/11/18 Diltiazem Cd [Cardizem Cd -] 240 mg PO DAILY 10/11/18 Famotidine [Pepcid] 40 mg PO DAILY 10/11/18 Levothyroxine [Synthroid -] 25 mcg PO DAILY 10/11/18 Losartan Potassium 25 mg PO DAILY 10/11/18 Meloxicam 15 mg PO DAILY 10/11/18 Methimazole 10 mg PO BID 10/11/18 Linden-3/Dha/Epa/Fish Oil [Linden 3 500 Softgel] 1 each PO DAILY 10/11/18 Omeprazole 20 mg PO DAILY 10/11/18 Family Disease History - Family Disease History Family Disease History: [place]: Daughter (NHL- , lupus- ), Other: Daughter Review of Systems - Review of Systems Constitutional: denies: Chills, Fever Eyes: reports: No Symptoms HENT: denies: Throat Pain Neck: reports: No Symptoms Cardiovascular: reports: No Symptoms. denies: Chest Pain Respiratory: reports: Cough Gastrointestinal: reports: No Symptoms Genitourinary: reports: No Symptoms Physical Exam Vital Signs: Vital Signs Temperature 98.5 F 10/18/18 13:56 Pulse Rate 91 H 10/18/18 13:56 Respiratory Rate 20 10/18/18 13:56 Blood Pressure 123/59 L 10/18/18 13:56 O2 Sat by Pulse Oximetry (%) 96 10/18/18 09:00 Constitutional: Yes: Well Nourished, No Distress, Calm Eyes: Yes: Conjunctiva Clear HENT: Yes: Atraumatic, Normocephalic. No: Pharyngeal Erythema, Thrush Neck: Yes: Supple, Trachea Midline Cardiovascular: Yes: Regular Rate and Rhythm Respiratory: Yes: Regular, CTA Bilaterally Gastrointestinal: Yes: Normal Bowel Sounds, Soft. No: Distention, Tenderness, Epigastrium ...Rectal Exam: Yes: Deferred Renal/: No: Bladder Distention, CVA Tenderness - Left, CVA Tenderness - Right Edema: No Peripheral Pulses WNL: Yes Integumentary: No: Rash Psychiatric: Yes: Alert Labs: CBC, BMP 10/17/18 06:15 10/17/18 06:15 Microbiology 10/12/18 09:51 Urine - Urine Clean Catch Urine Culture - Final NO GROWTH OBTAINED 10/11/18 15:45 Blood - Peripheral Venous Blood Culture - Final NO GROWTH AFTER 5 DAYS INCUBATION 10/11/18 15:45 Blood - Peripheral Venous Blood Culture - Final NO GROWTH AFTER 5 DAYS INCUBATION Imaging - Results Chest X-ray: Report Reviewed, Image Reviewed (no infiltrate) Problem List - Problems (1) Cough Code(s): R05 - COUGH (2) Multiple myeloma Code(s): C90.00 - MULTIPLE MYELOMA NOT HAVING ACHIEVED REMISSION Assessment/Plan no signs of infection suggest inhaler for cough-sounds bronchitis screen for influenza as well suggest d/c antibiotics s/p chemo for myeloma- cxray no acute infiltrate
[2018-10-18] MEDS ORDERED: ALBUTEROL SO4 8 GM HFA INHALER IH PRN (16:57)
--- NOTE | 2018-10-18 19:28 | PN ---
Progress Note, Physician History of Present Illness: Pt states that cough is improving - Current Medication List Current Medications: Active Medications Albuterol Sulfate (Ventolin Hfa Inhaler -) 2 puff IH Q4H PRN PRN Reason: SHORT OF BREATH/WHEEZING Allopurinol (Zyloprim -) 300 mg PO DAILY [facility] Last Admin: 10/18/18 09:03 Dose: 300 mg Atorvastatin Calcium (Lipitor -) 40 mg PO HS [facility] Last Admin: 10/17/18 21:32 Dose: 40 mg Diltiazem HCl (Cardizem Cd -) 240 mg PO DAILY [facility] Last Admin: 10/18/18 09:03 Dose: 240 mg Guaifenesin (Robitussin -) 10 ml PO Q6H PRN PRN Reason: COUGH Last Admin: 10/18/18 14:19 Dose: 10 ml Heparin Sodium (Porcine) (Heparin -) 5,000 unit SQ TID [facility] Sodium Chloride (Normal Saline -) 1,000 mls @ 42 mls/hr IV ASDIR [facility] Last Admin: 10/18/18 10:41 Dose: Not Given Levofloxacin (Levaquin 500 Mg Premixed Ivpb -) 500 mg in 100 mls @ 100 mls/hr IVPB DAILY [facility]; Protocol Last Admin: 10/18/18 17:01 Dose: 100 mls/hr Levothyroxine Sodium (Synthroid -) 25 mcg PO DAILY@0700 [facility] Last Admin: 18 06:24 Dose: 25 mcg Losartan Potassium (Cozaar -) 50 mg PO DAILY [facility] Metoclopramide HCl (Reglan -) 5 mg PO TIDAC [facility] Last Admin: 10/18/18 17:01 Dose: 5 mg Nystatin (Nystatin) 500,000 unit PO TID [facility] Last Admin: 10/18/18 14:19 Dose: 500,000 unit Ranitidine HCl (Zantac -) 300 mg PO DAILY [facility] Last Admin: 10/18/18 09:03 Dose: 300 mg - Objective Vital Signs: Vital Signs Temperature 99.1 F 10/18/18 18:05 Pulse Rate 97 H 18 18:05 Respiratory Rate 18 18 18:05 Blood Pressure 100/68 10/18/18 18:05 O2 Sat by Pulse Oximetry (%) 96 10/18/18 09:00 Neck: Yes: WNL, Supple Cardiovascular: Yes: WNL, Regular Rate and Rhythm Respiratory: Yes: Diminished Gastrointestinal: Yes: WNL, Normal Bowel Sounds, Soft Edema: LLE: Trace, RLE: Trace Labs: CBC, BMP 10/17/18 06:15 10/17/18 06:15 INR, PTT INR 1.06 (0.83-1.09) 10/17/18 06:15 Fibrinogen 334.0 mg/dL (238-498) 10/17/18 06:15 Problem List - Problems (1) Multiple myeloma Assessment/Plan: IgA myeloma Treatment w/ Velcade/dex Possible renal bx unlokely due to increased risk of bleeding Possible dc planning 10/21/18 Code(s): C90.00 - MULTIPLE MYELOMA NOT HAVING ACHIEVED REMISSION (2) Hypothyroidism Assessment/Plan: Cont levothyroxine Code(s): E03.9 - HYPOTHYROIDISM, UNSPECIFIED (3) Anemia Assessment/Plan: H/H stable Code(s): D64.9 - ANEMIA, UNSPECIFIED (4) HLD (hyperlipidemia) Assessment/Plan: Cont lipitor Code(s): E78.5 - HYPERLIPIDEMIA, UNSPECIFIED (5) HTN (hypertension) Assessment/Plan: BP stable Code(s): I10 - ESSENTIAL (PRIMARY) HYPERTENSION (6) Nausea Code(s): R11.0 - NAUSEA (7) Proteinuria Code(s): R80.9 - PROTEINURIA, UNSPECIFIED
--- NOTE | 2018-10-18 19:38 | PN ---
Progress Note (short form) - Note Progress Note: Patient seen and examined c/o cough no fever/chills Walked with PT Last Vital Signs Temp Pulse Resp BP Pulse Ox 99.1 F 97 H 18 100/68 96 10/18/18 18:05 10/18/18 18:05 10/18/18 18:05 10/18/18 18:05 10/18/18 09:00 Cor: RSR, No murmurs, No gallops Lungs: scattered rhionchi Abd: Soft, Normal bowel sounds, No organomegaly Ext:No significant edema Labs/Meds reviewed A/P Active myeloma --with anemia ? 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 to redose 10/20 on allopurinol gentle hydration elevated PTT- ? factor X deficiency Nl PTT 4months back Check mixing study check Factior X klevels Further procedures once PTT corrected bronchitis check CXR Levaquin for bronchitis given immunosuppressed state from low immunoglobulin levels IgG < 150mg/dl Will consider IVIG replacement if recurrent infections
[2018-10-18] MEDS ORDERED: PT OWN MED DRAWER 7, Y5N ONE (20:37)
[2018-10-18] MEDS: ATORVASTATIN CA 40 MG TABLET (FP) PO SCH (21:47)
[2018-10-19] MEDS: HEPARIN NA (PORCINE) 5,000 UNITS/ML 1ML VIAL SQ SCH ×3 (06:05→21:09)
[2018-10-19] MEDS: LEVOTHYROXINE NA 25 MCG TABLET (FP) PO SCH (06:05)
[2018-10-19] MEDS: SODIUM CHLORIDE 1,000 ML IV SCH ×2 (06:05→09:21)
[2018-10-19] MEDS: METOCLOPRAMIDE HCL 10 MG TABLET (FP) PO SCH ×2 (06:05→11:03)
[2018-10-19] MEDS: NYSTATIN 500,000 UNITS TABLET PO SCH ×3 (06:30→21:10)
[2018-10-19 07:58] LABS: ANION GAP 10 MMOL/L (8-16); BLOOD UREA NITROGEN 8 mg/dL (7-18); CALCIUM 8.7 mg/dL (8.5-10.1); CHLORIDE 106 mmol/L (98-107); CO2 24 mmol/L (21-32); CREATININE 0.8 mg/dL (0.55-1.3); GLUCOSE,RANDOM 89 mg/dL (74-106); POTASSIUM 3.5 mmol/L (3.5-5.1); SODIUM 140 mmol/L (136-145)
[2018-10-19] MEDS: ALLOPURINOL 300 MG TABLET (FP) PO SCH (09:20)
[2018-10-19] MEDS: RANITIDINE HCL 150 MG TABLET (FP) PO SCH (09:21)
[2018-10-19] MEDS: LOSARTAN POTASSIUM 50 MG TABLET (FP) PO SCH (09:21)
--- NOTE | 2018-10-19 16:12 | PN ---
Progress Note (short form) - Note Progress Note: Patient seen and examined Nurses state patient has been complaining of nausea, patient currently denies same. Myeloma- under therapy with velcade and decadron. Last Vital Signs Temp Pulse Resp BP Pulse Ox 98.9 F 92 H 20 113/49 L 96 10/19/18 14:01 10/19/18 14:01 10/19/18 14:01 10/19/18 14:01 10/19/18 08:35 HEENT: ZOILA, EOM Intact Cor: RSR, No murmurs, No gallops Lungs: Clear to P&A Abd: Soft, Normal bowel sounds, No organomegaly Ext:No significant edema Skin: No rashes, Integument intact CBC, BMP 10/17/18 06:15 10/19/18 06:45 Current Medications Generic Name Dose Route Start Last Admin Trade Name Freq PRN Reason Stop Dose Admin Albuterol Sulfate 2 puff 10/18/18 16:57 Ventolin Hfa Inhaler - IH Q4H PRN SHORT OF BREATH/WHEEZING Allopurinol 300 mg 10/11/18 18:15 10/19/18 09:20 Zyloprim - PO 300 mg DAILY [facility] Administration Atorvastatin Calcium 40 mg 10/12/18 22:00 10/18/18 21:47 Lipitor - PO 40 mg HS [facility] Administration Bortezomib 2.3 mg 10/20/18 10:00 Velcade SQ 10/20/18 10:01 ONCE ONE Dexamethasone 20 mg 10/20/18 10:00 Decadron - PO 10/20/18 10:01 ONCE ONE Diltiazem HCl 240 mg 10/12/18 10:00 10/19/18 09:20 Cardizem Cd - PO 240 mg DAILY [facility] Administration Guaifenesin 10 ml 10/17/18 12:35 10/18/18 14:19 Robitussin - PO 10 ml Q6H PRN Administration COUGH Heparin Sodium (Porcine) 5,000 unit 10/18/18 22:00 10/19/18 13:04 Heparin - SQ 5,000 unit TID [facility] Administration Levofloxacin 500 mg in 100 mls @ 100 mls/hr 10/18/18 16:45 10/19/18 09:21 Levaquin 500 Mg Premixed Ivpb - IVPB 100 mls/hr DAILY [facility] Administration Protocol Levothyroxine Sodium 25 mcg 12/11/18 07:00 10/19/18 06:05 Synthroid - PO 25 mcg DAILY@0700 [facility] Administration Losartan Potassium 50 mg 10/18/18 14:30 10/19/18 09:21 Cozaar - PO 50 mg DAILY [facility] Administration Metoclopramide HCl 5 mg 10/16/18 16:30 10/19/18 11:03 Reglan - PO 5 mg TIDAC [facility] Administration Nystatin 500,000 unit 10/13/18 14:00 10/19/18 13:04 Nystatin PO 500,000 unit TID [facility] Administration Ranitidine HCl 300 mg 10/12/18 10:00 10/19/18 09:21 Zantac - PO 300 mg DAILY [facility] Administration Impression: Myeloma Proteinuria Anemia Elevated PTT Coag studies - pending Zofran prn Further work up after coag studies available Weekly velcade
[2018-10-19] MEDS ORDERED: PROCHLORPERAZINE MALEATE 5 MG TABLET PO PRN (16:20)
--- NOTE | 2018-10-19 17:02 | PN ---
Progress Note, Physician History of Present Illness: Pt seen and examined at bedside. She is awake and alert. She denies shortness of breath. - Current Medication List Current Medications: Active Medications Albuterol Sulfate (Ventolin Hfa Inhaler -) 2 puff IH Q4H PRN PRN Reason: SHORT OF BREATH/WHEEZING Allopurinol (Zyloprim -) 300 mg PO DAILY [facility] Last Admin: 10/19/18 09:20 Dose: 300 mg Atorvastatin Calcium (Lipitor -) 40 mg PO HS [facility] Last Admin: 10/18/18 21:47 Dose: 40 mg Bortezomib (Velcade) 2.3 mg SQ ONCE ONE Stop: 10/20/18 10:01 Dexamethasone (Decadron -) 20 mg PO ONCE ONE Stop: 10/20/18 10:01 Diltiazem HCl (Cardizem Cd -) 240 mg PO DAILY [facility] Last Admin: 10/19/18 09:20 Dose: 240 mg Guaifenesin (Robitussin -) 10 ml PO Q6H PRN PRN Reason: COUGH Last Admin: 10/18/18 14:19 Dose: 10 ml Heparin Sodium (Porcine) (Heparin -) 5,000 unit SQ TID [facility] Last Admin: 10/19/18 13:04 Dose: 5,000 unit Levofloxacin (Levaquin 500 Mg Premixed Ivpb -) 500 mg in 100 mls @ 100 mls/hr IVPB DAILY [facility]; Protocol Last Admin: 10/19/18 09:21 Dose: 100 mls/hr Levothyroxine Sodium (Synthroid -) 25 mcg PO DAILY@0700 [facility] Last Admin: 10/19/18 06:05 Dose: 25 mcg Losartan Potassium (Cozaar -) 50 mg PO DAILY [facility] Last Admin: 10/19/18 09:21 Dose: 50 mg Nystatin (Nystatin) 500,000 unit PO TID [facility] Last Admin: 10/19/18 13:04 Dose: 500,000 unit Prochlorperazine Maleate (Compazine -) 10 mg PO Q6H PRN PRN Reason: NAUSEA AND/OR VOMITING Ranitidine HCl (Zantac -) 300 mg PO DAILY [facility] Last Admin: 10/19/18 09:21 Dose: 300 mg - Objective Vital Signs: Vital Signs Temperature 98.9 F 10/19/18 14:01 Pulse Rate 92 H 10/19/18 14:01 Respiratory Rate 20 10/19/18 14:01 Blood Pressure 113/49 L 10/19/18 14:01 O2 Sat by Pulse Oximetry (%) 96 10/19/18 08:35 Constitutional: Yes: Calm Eyes: Yes: Conjunctiva Clear HENT: Yes: Atraumatic Cardiovascular: Yes: S1, S2 Respiratory: Yes: CTA Bilaterally Gastrointestinal: Yes: Normal Bowel Sounds, Soft Genitourinary: Yes: WNL Musculoskeletal: Yes: WNL Edema: No Neurological: Yes: Oriented Psychiatric: Yes: Oriented Labs: CBC, BMP 10/17/18 06:15 10/19/18 06:45 INR, PTT INR 1.06 (0.83-1.09) 10/17/18 06:15 Fibrinogen 334.0 mg/dL (238-498) 10/17/18 06:15 Problem List - Problems (1) Proteinuria Code(s): R80.9 - PROTEINURIA, UNSPECIFIED (2) Multiple myeloma Code(s): C90.00 - MULTIPLE MYELOMA NOT HAVING ACHIEVED REMISSION (3) HTN (hypertension) Code(s): I10 - ESSENTIAL (PRIMARY) HYPERTENSION (4) HLD (hyperlipidemia) Code(s): E78.5 - HYPERLIPIDEMIA, UNSPECIFIED Assessment/Plan Current Medications Generic Name Dose Route Start Last Admin Trade Name Freq PRN Reason Stop Dose Admin Albuterol Sulfate 2 puff 10/18/18 16:57 Ventolin Hfa Inhaler - IH Q4H PRN SHORT OF BREATH/WHEEZING Allopurinol 300 mg 10/11/18 18:15 10/19/18 09:20 Zyloprim - PO 300 mg DAILY [facility] Administration Atorvastatin Calcium 40 mg 10/12/18 22:00 10/18/18 21:47 Lipitor - PO 40 mg HS [facility] Administration Bortezomib 2.3 mg 10/20/18 10:00 Velcade SQ 10/20/18 10:01 ONCE ONE Dexamethasone 20 mg 10/20/18 10:00 Decadron - PO 10/20/18 10:01 ONCE ONE Diltiazem HCl 240 mg 10/12/18 10:00 10/19/18 09:20 Cardizem Cd - PO 240 mg DAILY [facility] Administration Guaifenesin 10 ml 10/17/18 12:35 10/18/18 14:19 Robitussin - PO 10 ml Q6H PRN Administration COUGH Heparin Sodium (Porcine) 5,000 unit 10/18/18 22:00 10/19/18 13:04 Heparin - SQ 5,000 unit TID [facility] Administration Levofloxacin 500 mg in 100 mls @ 100 mls/hr 10/18/18 16:45 10/19/18 09:21 Levaquin 500 Mg Premixed Ivpb - IVPB 100 mls/hr DAILY [facility] Administration Protocol Levothyroxine Sodium 25 mcg 10/12/18 07:00 10/19/18 06:05 Synthroid - PO 25 mcg DAILY@0700 [facility] Administration Losartan Potassium 50 mg 10/18/18 14:30 10/19/18 09:21 Cozaar - PO 50 mg DAILY [facility] Administration Nystatin 500,000 unit 10/13/18 14:00 10/19/18 13:04 Nystatin PO 500,000 unit TID [facility] Administration Prochlorperazine Maleate 10 mg 10/19/18 16:20 Compazine - PO Q6H PRN NAUSEA AND/OR VOMITING Ranitidine HCl 300 mg 10/12/18 10:00 10/19/18 09:21 Zantac - PO 300 mg DAILY [facility] Administration Impression 1. proteinuria 2. multiple myeloma 3. failure to thrive 4. edema 5. htn 6. HLD 7. hypothyroidism 8. elevated PTT Plan - cont losartan - will increase dose tomorrow - monitor bp - pt getting chemo today - kidney biopsy on hold secondary to elevated ptt - renal workup in progress - cont treatment for myeloma, hopefully proteinuria improved with myeloma treatment - will follow Dr Hameed
--- NOTE | 2018-10-19 19:25 | PN ---
Progress Note (short form) - Note Progress Note: feels better today than yesterday. cough still present but with improvement. denies fevers, chills, vomiting. ambulating/eating/toileting well. Vital Signs Temperature 98.9 F 10/19/18 18:00 Pulse Rate 89 10/19/18 18:00 Respiratory Rate 20 10/19/18 18:00 Blood Pressure 127/64 10/19/18 18:00 O2 Sat by Pulse Oximetry (%) 96 10/19/18 08:35 PE: NAD, resting comfortably in bed +rales in b/l bases no oral thrush, no pnd, no exudates, no sinus tenderness no MRG abd soft, nontender no LE edema CBCD WBC 9.6 K/mm3 (4.0-10.0) 10/17/18 06:15 RBC 2.96 M/mm3 (3.60-5.2) L 10/17/18 06:15 Hgb 9.1 GM/dL (10.7-15.3) L 10/17/18 06:15 Hct 27.5 % (32.4-45.2) L 10/17/18 06:15 MCV 92.9 fl (80-96) 10/17/18 06:15 MCHC 33.0 g/dl (32.0-36.0) 10/17/18 06:15 RDW 14.9 % (11.6-15.6) 10/17/18 06:15 Plt Count 253 K/MM3 (134-434) 10/17/18 06:15 MPV 7.6 fl (7.5-11.1) 10/17/18 06:15 CMP Sodium 140 mmol/L (136-145) 10/19/18 06:45 Potassium 3.5 mmol/L (3.5-5.1) 10/19/18 06:45 Chloride 106 mmol/L (98-107) 10/19/18 06:45 Carbon Dioxide 24 mmol/L (21-32) 10/19/18 06:45 Anion Gap 10 MMOL/L (8-16) 10/19/18 06:45 BUN 8 mg/dL (7-18) 10/19/18 06:45 Creatinine 0.8 mg/dL (0.55-1.3) 10/19/18 06:45 Creat Clearance w eGFR > 60 (>60) 10/19/18 06:45 Calcium 8.7 mg/dL (8.5-10.1) 10/19/18 06:45 Total Bilirubin 0.1 mg/dL (0.2-1) L 10/17/18 06:15 AST 17 U/L (15-37) 10/17/18 06:15 ALT 15 U/L (13-61) 10/17/18 06:15 Alkaline Phosphatase 59 U/L (45-117) 10/17/18 06:15 Total Protein 8.4 g/dl (6.4-8.2) H 10/17/18 06:15 Albumin 1.2 g/dl (3.4-5.0) L 10/17/18 06:15 73 yr old woman with myeloma, GERD presented with leg swelling found to have proteinuria, now with cough. Problem List: IgA myeloma, with anemia and proteinuria (normal creatinine). Proteinuria Anemia Elevated PTT hypothyroidism bronchitis A/P abx treatment with levaquin(started 10/18) due to immucompromised state from low immunoglobulin levels IgG < 150mg/dl, cxy negative for infiltrate, flu negative Started treatment with Velcade/Dex - 1st dose on 10/14. to redose 10/20. Weekly velcade, she has been tolerating medication without side effects Skeletal survey negative on allopurinol pending coag studies: elevated PTT- r/o factor X deficiency and check mixing study- lab test pending Further procedures once PTT corrected
--- NOTE | 2018-10-19 20:24 | PN ---
Progress Note, Physician - Current Medication List Current Medications: Active Medications Albuterol Sulfate (Ventolin Hfa Inhaler -) 2 puff IH Q4H PRN PRN Reason: SHORT OF BREATH/WHEEZING Allopurinol (Zyloprim -) 300 mg PO DAILY [facility] Last Admin: 10/19/18 09:20 Dose: 300 mg Atorvastatin Calcium (Lipitor -) 40 mg PO HS [facility] Last Admin: 10/18/18 21:47 Dose: 40 mg Bortezomib (Velcade) 2.3 mg SQ ONCE ONE Stop: 10/20/18 10:01 Dexamethasone (Decadron -) 20 mg PO ONCE ONE Stop: 10/20/18 10:01 Diltiazem HCl (Cardizem Cd -) 240 mg PO DAILY [facility] Last Admin: 10/19/18 09:20 Dose: 240 mg Guaifenesin (Robitussin -) 10 ml PO Q6H PRN PRN Reason: COUGH Last Admin: 10/18/18 14:19 Dose: 10 ml Heparin Sodium (Porcine) (Heparin -) 5,000 unit SQ TID [facility] Last Admin: 10/19/18 13:04 Dose: 5,000 unit Levofloxacin (Levaquin 500 Mg Premixed Ivpb -) 500 mg in 100 mls @ 100 mls/hr IVPB DAILY [facility]; Protocol Last Admin: 10/19/18 09:21 Dose: 100 mls/hr Levothyroxine Sodium (Synthroid -) 25 mcg PO DAILY@0700 [facility] Last Admin: 10/19/18 06:05 Dose: 25 mcg Losartan Potassium (Cozaar -) 50 mg PO DAILY [facility] Last Admin: 10/19/18 09:21 Dose: 50 mg Nystatin (Nystatin) 500,000 unit PO TID [facility] Last Admin: 10/19/18 13:04 Dose: 500,000 unit Prochlorperazine Maleate (Compazine -) 10 mg PO Q6H PRN PRN Reason: NAUSEA AND/OR VOMITING Last Admin: 10/19/18 18:36 Dose: 10 mg Ranitidine HCl (Zantac -) 300 mg PO DAILY [facility] Last Admin: 10/19/18 09:21 Dose: 300 mg - Objective Vital Signs: Vital Signs Temperature 98.9 F 10/19/18 18:00 Pulse Rate 89 10/19/18 18:00 Respiratory Rate 20 10/19/18 18:00 Blood Pressure 127/64 10/19/18 18:00 O2 Sat by Pulse Oximetry (%) 96 10/19/18 08:35 Labs: CBC, BMP 10/17/18 06:15 10/19/18 06:45 INR, PTT INR 1.06 (0.83-1.09) 10/17/18 06:15 Fibrinogen 334.0 mg/dL (238-498) 10/17/18 06:15 Problem List - Problems (1) Multiple myeloma Code(s): C90.00 - MULTIPLE MYELOMA NOT HAVING ACHIEVED REMISSION (2) Hypothyroidism Code(s): E03.9 - HYPOTHYROIDISM, UNSPECIFIED (3) Anemia Code(s): D64.9 - ANEMIA, UNSPECIFIED (4) HLD (hyperlipidemia) Code(s): E78.5 - HYPERLIPIDEMIA, UNSPECIFIED (5) HTN (hypertension) Code(s): I10 - ESSENTIAL (PRIMARY) HYPERTENSION (6) Nausea Code(s): R11.0 - NAUSEA (7) Proteinuria Code(s): R80.9 - PROTEINURIA, UNSPECIFIED
[2018-10-19] MEDS ORDERED: PT OWN MED DRAWER 7, Y5N ONE (20:42)
[2018-10-19] MEDS: ATORVASTATIN CA 40 MG TABLET (FP) PO SCH (21:09)
[2018-10-20] MEDS ORDERED: PT OWN MED DRAWER 7, Y5N ONE ×2 (06:03→21:05)
[2018-10-20 06:52] LABS: BASO % 0.6 % (0-2.0); EOS % 0.8 % (0-4.5); HEMOGLOBIN 9.4 GM/dL (10.7-15.3); LYMPH % 40.6 % (8-40); MCH 31.4 pg (25.7-33.7); MCHC 33.7 g/dl (32.0-36.0); MEAN CELL VOLUME 93.1 fl (80-96); MEAN PLT VOLUME 7.5 fl (7.5-11.1); MONO % 10.1 % (3.8-10.2); NEUT % 47.9 % (42.8-82.8); PLATELET COUNT 254 K/MM3 (134-434); RBC 3.01 M/mm3 (3.60-5.2); RDW 15.2 % (11.6-15.6); WHITE BLOOD COUNT 5.5 K/mm3 (4.0-10.0)
[2018-10-20] MEDS: NYSTATIN 500,000 UNITS TABLET PO SCH ×3 (06:54→21:37)
[2018-10-20] MEDS: HEPARIN NA (PORCINE) 5,000 UNITS/ML 1ML VIAL SQ SCH ×3 (06:54→21:37)
[2018-10-20] MEDS: LEVOTHYROXINE NA 25 MCG TABLET (FP) PO SCH (06:55)
[2018-10-20 07:01] LABS: ALBUMIN 1.2 g/dl (3.4-5.0); ALK PHOS 63 U/L (45-117); ANION GAP 7 MMOL/L (8-16); BILIRUBIN,TOTAL 0.2 mg/dL (0.2-1); BLOOD UREA NITROGEN 8 mg/dL (7-18); CALCIUM 9.9 mg/dL (8.5-10.1); CHLORIDE 103 mmol/L (98-107); CO2 29 mmol/L (21-32); CREATININE 0.9 mg/dL (0.55-1.3); GLUCOSE,RANDOM 101 mg/dL (74-106); MAGNESIUM 2.5 mg/dL (1.8-2.4); POTASSIUM 3.7 mmol/L (3.5-5.1); SGOT/AST 13 U/L (15-37); SGPT/ALT 11 U/L (13-61); SODIUM 139 mmol/L (136-145); TOT PROT 8.4 g/dl (6.4-8.2)
[2018-10-20] MEDS: ALLOPURINOL 300 MG TABLET (FP) PO SCH (09:19)
[2018-10-20] MEDS: LOSARTAN POTASSIUM 50 MG TABLET (FP) PO SCH (09:19)
[2018-10-20] MEDS: RANITIDINE HCL 150 MG TABLET (FP) PO SCH (09:19)
[2018-10-20 09:38] LABS: URINE APPEARANCE CLOUDY; URINE BILIRUBIN NEGATIVE (<2.0 mg/dL); URINE COLOR LTYELLOW; URINE GLUCOSE (UA) NEGATIVE (NEGATIVE); URINE KETONE NEGATIVE (NEGATIVE); URINE LEUK ESTERASE NEGATIVE (NEGATIVE); URINE NITRITE NEGATIVE (NEGATIVE); URINE PROTEIN 3+ (NEGATIVE); URINE UROBILINOGEN NEGATIVE mg/dL (0.2-1.0)
[2018-10-20 09:48] LABS: EPI CELLS RARE /HPF (FEW)
[2018-10-20] MEDS ORDERED: DEXAMETHASONE 4 MG TABLET (FP) PO ONE (10:00)
[2018-10-20] MEDS ORDERED: BORTEZOMIB (VELCADE) 2.5 MG/ML SUB-Q INJECTION SQ ONE (10:00)
[2018-10-20 10:13] LABS: RATIO URIN PROTEIN/URIN CREAT 8.84 MG/DL
[2018-10-20 12:23] LABS: DRVVT - 25.4 sec (0.0-47.0)
--- NOTE | 2018-10-20 12:25 | PN ---
Progress Note (short form) - Note Progress Note: Patient seen and examined Afebrile. Cough improved Last Vital Signs Temp Pulse Resp BP Pulse Ox 98.8 F 92 H 20 121/63 100 10/20/18 08:40 10/20/18 08:40 10/20/18 08:40 10/20/18 08:40 10/20/18 08:32 Cor: RSR, No murmurs, No gallops Lungs: scattered rhionchi Abd: Soft, Normal bowel sounds, No organomegaly Ext:No significant edema Labs/MEds reviewed A/P Active myeloma --with anemia ? 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 to redose today on allopurinol gentle hydration elevated PTT- ? factor X deficiency Nl PTT 4months back Check mixing study check Factior X klevels Further procedures once PTT corrected bronchitis check CXR Levaquin for bronchitis given immunosuppressed state from low immunoglobulin levels IgG < 150mg/dl Will consider IVIG replacement if recurrent infections
--- NOTE | 2018-10-20 12:44 | PN ---
Progress Note, Physician History of Present Illness: Pt seen and examined at bedside. She is awake and alert. She denies shortness of breath. She is getting chemo today for myeloma. - Current Medication List Current Medications: Active Medications Albuterol Sulfate (Ventolin Hfa Inhaler -) 2 puff IH Q4H PRN PRN Reason: SHORT OF BREATH/WHEEZING Allopurinol (Zyloprim -) 300 mg PO DAILY [facility] Last Admin: 10/20/18 09:19 Dose: 300 mg Atorvastatin Calcium (Lipitor -) 40 mg PO HS [facility] Last Admin: 10/19/18 21:09 Dose: 40 mg Diltiazem HCl (Cardizem Cd -) 240 mg PO DAILY [facility] Last Admin: 10/20/18 09:19 Dose: 240 mg Guaifenesin (Robitussin -) 10 ml PO Q6H PRN PRN Reason: COUGH Last Admin: 10/18/18 14:19 Dose: 10 ml Heparin Sodium (Porcine) (Heparin -) 5,000 unit SQ TID [facility] Last Admin: 10/20/18 06:54 Dose: 5,000 unit Levofloxacin (Levaquin 500 Mg Premixed Ivpb -) 500 mg in 100 mls @ 100 mls/hr IVPB DAILY [facility]; Protocol Last Admin: 10/20/18 09:19 Dose: 100 mls/hr Levothyroxine Sodium (Synthroid -) 25 mcg PO DAILY@0700 [facility] Last Admin: 10/20/18 06:55 Dose: 25 mcg Losartan Potassium (Cozaar -) 50 mg PO DAILY [facility] Last Admin: 10/20/18 09:19 Dose: 50 mg Nystatin (Nystatin) 500,000 unit PO TID [facility] Last Admin: 10/20/18 06:54 Dose: 500,000 unit Prochlorperazine Maleate (Compazine -) 10 mg PO Q6H PRN PRN Reason: NAUSEA AND/OR VOMITING Last Admin: 10/19/18 18:36 Dose: 10 mg Ranitidine HCl (Zantac -) 300 mg PO DAILY [facility] Last Admin: 10/20/18 09:19 Dose: 300 mg - Objective Vital Signs: Vital Signs Temperature 98.8 F 10/20/18 08:40 Pulse Rate 92 H 10/20/18 08:40 Respiratory Rate 20 10/20/18 08:40 Blood Pressure 121/63 10/20/18 08:40 O2 Sat by Pulse Oximetry (%) 100 10/20/18 08:32 Constitutional: Yes: Calm Eyes: Yes: Conjunctiva Clear HENT: Yes: Atraumatic Cardiovascular: Yes: S1, S2 Respiratory: Yes: CTA Bilaterally Gastrointestinal: Yes: Normal Bowel Sounds, Soft Genitourinary: Yes: WNL Musculoskeletal: Yes: WNL Edema: No Neurological: Yes: Oriented Psychiatric: Yes: Oriented Labs: CBC, BMP 10/20/18 06:00 10/20/18 06:00 INR, PTT INR 1.06 (0.83-1.09) 10/17/18 06:15 Fibrinogen 334.0 mg/dL (238-498) 10/17/18 06:15 Problem List - Problems (1) Proteinuria Code(s): R80.9 - PROTEINURIA, UNSPECIFIED (2) Multiple myeloma Code(s): C90.00 - MULTIPLE MYELOMA NOT HAVING ACHIEVED REMISSION (3) HTN (hypertension) Code(s): I10 - ESSENTIAL (PRIMARY) HYPERTENSION (4) HLD (hyperlipidemia) Code(s): E78.5 - HYPERLIPIDEMIA, UNSPECIFIED Assessment/Plan Current Medications Generic Name Dose Route Start Last Admin Trade Name Freq PRN Reason Stop Dose Admin Albuterol Sulfate 2 puff 10/18/18 16:57 Ventolin Hfa Inhaler - IH Q4H PRN SHORT OF BREATH/WHEEZING Allopurinol 300 mg 10/11/18 18:15 10/20/18 09:19 Zyloprim - PO 300 mg DAILY [facility] Administration Atorvastatin Calcium 40 mg 10/12/18 22:00 10/19/18 21:09 Lipitor - PO 40 mg HS [facility] Administration Diltiazem HCl 240 mg 10/12/18 10:00 10/20/18 09:19 Cardizem Cd - PO 240 mg DAILY [facility] Administration Guaifenesin 10 ml 10/17/18 12:35 10/18/18 14:19 Robitussin - PO 10 ml Q6H PRN Administration COUGH Heparin Sodium (Porcine) 5,000 unit 10/18/18 22:00 10/20/18 06:54 Heparin - SQ 5,000 unit TID [facility] Administration Levofloxacin 500 mg in 100 mls @ 100 mls/hr 10/18/18 16:45 10/20/18 09:19 Levaquin 500 Mg Premixed Ivpb - IVPB 100 mls/hr DAILY [facility] Administration Protocol Levothyroxine Sodium 25 mcg 10/12/18 07:00 10/20/18 06:55 Synthroid - PO 25 mcg DAILY@0700 [facility] Administration Losartan Potassium 50 mg 10/18/18 14:30 10/20/18 09:19 Cozaar - PO 50 mg DAILY [facility] Administration Nystatin 500,000 unit 10/13/18 14:00 10/20/18 06:54 Nystatin PO 500,000 unit TID [facility] Administration Prochlorperazine Maleate 10 mg 10/19/18 16:20 10/19/18 18:36 Compazine - PO 10 mg Q6H PRN Administration NAUSEA AND/OR VOMITING Ranitidine HCl 300 mg 10/12/18 10:00 10/20/18 09:19 Zantac - PO 300 mg DAILY [facility] Administration Impression 1. proteinuria 2. multiple myeloma 3. failure to thrive 4. edema 5. htn 6. HLD 7. hypothyroidism 8. elevated PTT Plan - increase losartan to 100 mg - monitor bp - follow repeat urines - chemo today - kidney biopsy on hold secondary to elevated ptt - renal workup in progress - cont treatment for myeloma, hopefully proteinuria improved with myeloma treatment - will follow Dr Hameed
[2018-10-20] MEDS ORDERED: LOSARTAN POTASSIUM 50 MG TABLET (FP) PO SCH (12:45)
--- NOTE | 2018-10-20 17:11 | PN ---
Progress Note (short form) - Note Progress Note: Feels well - no complaints. No fever/chills. Cough improved. No sore throat/ dysuria/ No diarrhea/abdominal pain/rash. Afebrile/Hemodynamically Stable. Last Vital Signs Temp Pulse Resp BP Pulse Ox 98.4 F 91 H 20 96/55 L 100 10/20/18 13:42 10/20/18 13:42 10/20/18 13:42 10/20/18 13:42 10/20/18 08:32 HEENT- Atraumatic/Normocephalic Heart - S1, S2, Soft SM Lungs - clear to auscultation Abdomen - Soft, non-tender. Bowel Sounds normal. Extremities - no calf swelling/tenderness. Laboratory Results - last 24 hr 10/17/18 10/17/18 10/20/18 06:15 06:15 06:00 WBC 5.5 RBC 3.01 L Hgb 9.4 L Hct 28.0 L MCV 93.1 MCH 31.4 MCHC 33.7 RDW 15.2 Plt Count 254 MPV 7.5 Absolute Neuts (auto) 2.6 Neutrophils % 47.9 D Lymphocytes % 40.6 H D Monocytes % 10.1 Eosinophils % 0.8 D Basophils % 0.6 Nucleated RBC % 0 PT Mixing Study 12.0 H LA PTT Baseline 45.4 dRVVT Confirm Interp 25.4 Sodium Potassium Chloride Carbon Dioxide Anion Gap BUN Creatinine Creat Clearance w eGFR Random Glucose Calcium Magnesium Total Bilirubin AST ALT Alkaline Phosphatase Total Protein Albumin Urine Color Urine Appearance Urine pH Ur Specific Ruffin Urine Protein Urine Glucose (UA) Urine Ketones Urine Blood Urine Nitrite Urine Bilirubin Urine Urobilinogen Ur Leukocyte Esterase Urine WBC (Auto) Urine RBC (Auto) Ur Epithelial Cells U Random Total Protein Urine Creatinine Protein/Creatinin Ratio 10/20/18 10/20/18 10/20/18 06:00 08:00 08:00 WBC RBC Hgb Hct MCV MCH MCHC RDW Plt Count MPV Absolute Neuts (auto) Neutrophils % Lymphocytes % Monocytes % Eosinophils % Basophils % Nucleated RBC % PT Mixing Study LA PTT Baseline dRVVT Confirm Interp Sodium 139 Potassium 3.7 Chloride 103 Carbon Dioxide 29 Anion Gap 7 L BUN 8 Creatinine 0.9 Creat Clearance w eGFR > 60 Random Glucose 101 Calcium 9.9 Magnesium 2.5 H Total Bilirubin 0.2 AST 13 L ALT 11 L Alkaline Phosphatase 63 Total Protein 8.4 H Albumin 1.2 L Urine Color Ltyellow Urine Appearance Cloudy Urine pH 7.0 Ur Specific Ruffin 1.009 L Urine Protein 3+ H Urine Glucose (UA) Negative Urine Ketones Negative Urine Blood 1+ H Urine Nitrite Negative Urine Bilirubin Negative Urine Urobilinogen Negative Ur Leukocyte Esterase Negative Urine WBC (Auto) 1 Urine RBC (Auto) 2 Ur Epithelial Cells Rare U Random Total Protein 380 H Urine Creatinine 43.0 Protein/Creatinin Ratio 8.84 Current Medications Generic Name Dose Route Start Last Admin Trade Name Freq PRN Reason Stop Dose Admin Albuterol Sulfate 2 puff 10/18/18 16:57 Ventolin Hfa Inhaler - IH Q4H PRN SHORT OF BREATH/WHEEZING Allopurinol 300 mg 10/11/18 18:15 10/20/18 09:19 Zyloprim - PO 300 mg DAILY [facility] Administration Atorvastatin Calcium 40 mg 10/12/18 22:00 10/19/18 21:09 Lipitor - PO 40 mg HS [facility] Administration Diltiazem HCl 240 mg 10/12/18 10:00 10/20/18 09:19 Cardizem Cd - PO 240 mg DAILY [facility] Administration Guaifenesin 10 ml 10/17/18 12:35 10/18/18 14:19 Robitussin - PO 10 ml Q6H PRN Administration COUGH Heparin Sodium (Porcine) 5,000 unit 10/18/18 22:00 10/20/18 13:27 Heparin - SQ 5,000 unit TID [facility] Administration Levofloxacin 500 mg in 100 mls @ 100 mls/hr 10/18/18 16:45 10/20/18 09:19 Levaquin 500 Mg Premixed Ivpb - IVPB 100 mls/hr DAILY [facility] Administration Protocol Levothyroxine Sodium 25 mcg 10/12/18 07:00 10/20/18 06:55 Synthroid - PO 25 mcg DAILY@0700 [facility] Administration Losartan Potassium 100 mg 10/20/18 12:45 Cozaar - PO DAILY [facility] Nystatin 500,000 unit 10/13/18 14:00 10/20/18 13:27 Nystatin PO 500,000 unit TID [facility] Administration Prochlorperazine Maleate 10 mg 10/19/18 16:20 10/19/18 18:36 Compazine - PO 10 mg Q6H PRN Administration NAUSEA AND/OR VOMITING Ranitidine HCl 300 mg 10/12/18 10:00 10/20/18 09:19 Zantac - PO 300 mg DAILY [facility] Administration ASSESSMENT/PLAN 73 year old female with HTN, HLD, Hypothyroidism, recently diagnosed with Multiple Myeloma, with nephrotic range proteinuria, lamda light chain positive, currently receiving Velcade. 1. Multiple Myeloma Lamda light chain positive Nephrotic range proteinuria Started on Velcade - for another dose today Hematology/Oncology following. 2. HTN - Continue Cozaar and Cardizem. Up-titration today of anti-hypertensives by Nephrology. 3. HLD - Continue Lipitor 4. Acute bronchitis - improving. Continue Levofloxacin Day 3. DVT Px - Heparin Visit type - Emergency Visit Emergency Visit: No - New Patient This patient is new to me today: Yes Date on this admission: 10/20/18 - Critical Care Critical Care patient: No - Discharge Referral Referred to [facility] No
[2018-10-20] MEDS: ATORVASTATIN CA 40 MG TABLET (FP) PO SCH (21:37)
[2018-10-21] MEDS: HEPARIN NA (PORCINE) 5,000 UNITS/ML 1ML VIAL SQ SCH ×2 (05:30→13:20)
[2018-10-21] MEDS: NYSTATIN 500,000 UNITS TABLET PO SCH ×2 (05:31→13:20)
[2018-10-21] MEDS: LEVOTHYROXINE NA 25 MCG TABLET (FP) PO SCH (06:05)
[2018-10-21] MEDS: ALLOPURINOL 300 MG TABLET (FP) PO SCH (09:15)
[2018-10-21] MEDS: RANITIDINE HCL 150 MG TABLET (FP) PO SCH (09:15)
[2018-10-21] MEDS ORDERED: PT OWN MED DRAWER 7, Y5N ONE (13:22)
[2018-10-21 14:15] VITALS: BP 121/75; PULSE 95; TEMP 98.8
== END 2018-10-21 14:25 | disposition home or self-care (01) | DRG 841 ==
LOC: JER 13:28 → JERBED 20:33 → J7W 10-12 15:37
PROVIDERS: ADMIT Internal Medicine; ATTEND Internal Medicine
DX: C90.00 Multiple myeloma not having achieved remission (principal); D68.2 Hereditary deficiency of other clotting factors; I10 Essential (primary) hypertension; E78.5 Hyperlipidemia, unspecified; E03.9 Hypothyroidism, unspecified; K21.9 Gastro-esophageal reflux disease without esophagitis; E83.52 Hypercalcemia; R62.7 Adult failure to thrive; D64.9 Anemia, unspecified; R42 Dizziness and giddiness; E88.09 Other disorders of plasma-protein metabolism, not elsewhere classified; R11.0 Nausea; Z88.0 Allergy status to penicillin; R80.9 Proteinuria, unspecified; J20.9 Acute bronchitis, unspecified
CPT/HCPCS: 36415; 71046-TC-FY; 71250-TC; 74019-TC-FY; 74176-TC; 76700-TC; 76775-TC; 77074-TC-FY; 80048; 80053; 81003; 81015; 82140; 82272; 82550; 82553; 82570; 82607; 82728; 82746; 83516; 83520; 83540; 83550; 83615; 83690; 83735; 84155; 84156; 84157; 84165; 84439; 84443; 84484; 84550; 85025; 85260; 85384; 85610; 85613; 85730; 85732; 86038; 86225; 86256; 87040; 87086; 87804; 93005; 93010; 96367; 96375; 96401; 97116-GP; 97161-GP; 99285-25; J1644; J7030; J9041; Q9967

== ENCOUNTER 2018-10-27 09:49 | Inpatient (IN) | payer OTHER ==
--- NOTE | 2018-10-27 10:48 | PDOC ---
Attending Attestation - Medical Decision Making Paged Dr. Stuart overhead 3:59pm Spoke with Dr. Stuart concerning patient's care 4:10pm EXAM#: TYPE/EXAM: RESULT: [id number] RAD/CHEST X-RAY PORTABLE* Impression. No evidence of pneumonia, CHF, pleural effusion, or pneumothorax Reported By: Nikita Gustafson MD 10/27/18 11:56 Documentation prepared by AYLA Ashley, acting as medical receptionist for Virginia Hurt MD. 10/27/18 12:06 <Livier Rodriguez - Last Filed: 10/27/18 16:31> - Resident Resident Name: Aron Gomez - ED Attending Attestation I have performed the following: I have examined & evaluated the patient, The case was reviewed & discussed with the resident, I agree w/resident's findings & plan, Exceptions are as noted - HPI HPI: 10/27/18 17:07 The patient is a 73 year old female, with a significant PMH of multiple myeloma (diagnosed 4 years ago, on chemo weekly, followed by Dr. Stuart), HTN, HLD, and hypothyroidism, who presents to the emergency department today complaining of nausea for 1 day. Patient notes she began feeling nauseous, without vomit, following her 3rd chemotherapy treatment. Patient denies abdominal pain. Patient was brought to the ED as per request of Dr. Stuart for admission as pt was too ill to get chemo today. The patient denies chest pain, shortness of breath, headache and dizziness. Denies fever, chills, vomit, diarrhea and constipation. Denies dysuria, frequency, urgency and hematuria. Allergies: Penicillin Past surgical history: Hiatal hernia (2018) Social history: No reported PCP: Dr. Johnson Oncologist: Dr. Stuart - Physicial Exam PE: 10/27/18 17:11 agree with resident exam - Medical Decision Making 10/27/18 13:11 73yo F hx MM on chemo (last 1 week ago) presents to the ED with weakness, N/V. Pt afbrile and no fevers at home. Exam with dry MM and no abd ttp. BP initially hypotensive to 80s/60s, improved to 112/66. Plan for labs and IVF hydration. Pt evaluated by Dr. Stuart at the bedside 10/27/18 14:41 Labs with trop mildly positive and stable anemia with hgb 9.[address] Puckett Case discussed in detail with admitting physician including history, physical exam and ancillary studies. Admitting physician has assumed care for the patient, will follow all pending diagnostics and will complete the evaluation and treatment. 10/27/18 15:[address] Ordonez c/s to see if pt needs tele Per Dr. Ordonez, given weakness, nausea, pt needs telemetry <Virginia Hurt - Last Filed: 10/27/18 17:17>
[2018-10-27] MEDS ORDERED: SODIUM CHLORIDE 1,000 ML IV STA ×2 (12:02→12:27)
--- NOTE | 2018-10-27 12:04 | PDOC ---
History of Present Illness - History of Present Illness Initial Comments: 10/27/18 11:59 Pt. is a 73 y.o. F w/ PMHx. of HTN, HLD, Hypothyroidism, and recently diagnosed multiple myeloma presents to the ED for nausea that began this morning before receiveing third chemotherapy treatment. Pt. sent here from the office of Dr. Sade Davis. Pt. states that she has been having decreased appetite for a a couple weeks now. Pt. denies any vomiting, fevers, constipation, diarrhea, shortness of breath, abdominal pain, dizziness or lightheadedness. CBC, CMP, Mag, Phos, Lactate, EKG, CXR, UA, UCx. and BCx. were ordered to evaluate for dehydration vs. infection given immunological status s/p 2 rounds of chemotherapy. Pt. has been afebrile but is known to have hypothyroidism. <Aron Gomez - Last Filed: 10/27/18 13:35> <Virginia Hurt - Last Filed: 10/27/18 14:41> - General Chief Complaint: Nausea/Vomiting Stated Complaint: NAUSEA/VOMITING Time Seen by Provider: 10/27/18 10:14 Past History - Travel Traveled outside of the country in the last 30 days: No Close contact w/someone who was outside of country & ill: No - Past Medical History Anemia: Yes Asthma: Yes Cancer: Yes (myeloma) Cardiac Disorders: Yes (pt denies) CVA: No COPD: Yes CHF: No Dementia: No Diabetes: No (not on any meds) GI Disorders: Yes (HIATAL HERNIA) Disorders: No HTN: Yes Hypercholesterolemia: Yes Liver Disease: Yes (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) Seizures: No Thyroid Disease: Yes (Hypothyroidism ) - Surgical History Abdominal Surgery: Yes Appendectomy: No Cardiac Surgery: No Cholecystectomy: No Lung Surgery: No Neurologic Surgery: No Orthopedic Surgery: Yes (carpal tunnel ) - Suicide/Smoking/Psychosocial Hx Smoking History: Never smoked Have you smoked in the past 12 months: No Number of Cigarettes Smoked Daily: 0 If you are a former smoker, when did you quit?: 1988 Cigars Per Day: 0 Hx Alcohol Use: No Drug/Substance Use Hx: No Substance Use Type: None Hx Substance Use Treatment: No <Aron Gomez - Last Filed: 10/27/18 13:35> <Virginia Hurt - Last Filed: 10/27/18 14:41> - Past Medical History Allergies/Adverse Reactions: Allergies Allergy/AdvReac Type Severity Reaction Status Date / Time Penicillins Allergy Severe Rash Verified 10/27/18 10:03 Home Medications: Ambulatory Orders Gabapentin 300 mg PO TID 06/14/13 Atorvastatin Ca [Lipitor] 40 mg PO HS 10/11/18 Diltiazem Cd [Cardizem Cd -] 240 mg PO DAILY 10/11/18 Famotidine [Pepcid] 40 mg PO DAILY 10/11/18 Levothyroxine [Synthroid -] 25 mcg PO DAILY 10/11/18 Losartan Potassium 25 mg PO DAILY 10/11/18 Meloxicam 15 mg PO DAILY 10/11/18 Methimazole 10 mg PO BID 10/11/18 Orrum-3/Dha/Epa/Fish Oil [Orrum 3 500 Softgel] 1 each PO DAILY 10/11/18 Omeprazole 20 mg PO DAILY 10/11/18 Review of Systems - Review of Systems Able to Perform ROS?: Yes Is the patient limited Romansh proficient: No Constitutional: Yes: Loss of Appetite, Unintentional Wgt. Loss. No: Fever HEENTM: Yes: Difficulty Swallowing. No: Eye Pain, Blurred Vision, Ear Pain, Throat Pain Respiratory: Yes: Cough. No: Shortness of Breath, Wheezing Cardiac (ROS): No: Chest Pain, Edema, Irregular Heart Rate, Lightheadedness, Palpitations, Syncope ABD/GI: Yes: Nausea, Poor Appetite. No: Constipated, Diarrhea, Vomiting, Indigestion : No: Dysuria, Discharge, Frequency, Flank Pain, Hematuria, Pain Musculoskeletal: No: Muscle Pain, Muscle Weakness Neurological: No: Headache, Numbness, Paresthesia, Tingling, Dizziness Endocrine: Yes: Change in Weight <Aron Gomez - Last Filed: 10/27/18 13:35> *Physical Exam - Vital Signs Last Vital Signs Temp Pulse Resp BP Pulse Ox 98.2 F 97 H 18 112/66 98 10/27/18 11:42 10/27/18 11:42 10/27/18 11:42 10/27/18 11:42 10/27/18 11:42 - Physical Exam General Appearance: Yes: Nourished, Appropriately Dressed, Mild Distress HEENT: positive: Normal Voice, Symmetrical. negative: Pharynx Normal (dry MM) Respiratory/Chest: positive: Lungs Clear, Normal Breath Sounds. negative: Respiratory Distress, Accessory Muscle Use Cardiovascular: positive: Regular Rhythm, Regular Rate, S1, S2, Tachycardia. negative: Edema, JVD, Murmur Vascular Pulses: Dorsalis-Pedis (R): 2+, Doralis-Pedis (L): 2+ Musculoskeletal: negative: CVA Tenderness Extremity: positive: Normal Inspection. negative: Tender, Coldness, Pedal Edema , Swelling, Calf Tenderness Integumentary: positive: Dry, Warm Neurologic: positive: Fully Oriented, Alert, Normal Response, Motor Strength 5/5 <Aron Gomez - Last Filed: 10/27/18 13:35> - Vital Signs Last Vital Signs Temp Pulse Resp BP Pulse Ox 98.2 F 97 H 18 112/66 98 10/27/18 11:42 10/27/18 11:42 10/27/18 11:42 10/27/18 11:42 10/27/18 11:42 <Virginia Hurt - Last Filed: 10/27/18 14:41> Moderate Sedation - Procedure Monitoring Vital Signs: Procedure Monitoring Vital Signs Temperature 98.2 F 10/27/18 11:42 Pulse Rate 97 H 10/27/18 11:42 Respiratory Rate 18 10/27/18 11:42 Blood Pressure 112/66 10/27/18 11:42 O2 Sat by Pulse Oximetry (%) 98 10/27/18 11:42 <Aron Gomez - Last Filed: 10/27/18 13:35> - Procedure Monitoring Vital Signs: Procedure Monitoring Vital Signs Temperature 98.2 F 10/27/18 11:42 Pulse Rate 97 H 10/27/18 11:42 Respiratory Rate 18 10/27/18 11:42 Blood Pressure 112/66 10/27/18 11:42 O2 Sat by Pulse Oximetry (%) 98 10/27/18 11:42 <Virginia Hurt - Last Filed: 10/27/18 14:41> ED Treatment Course - LABORATORY CBC & Chemistry Diagram: 10/27/18 12:30 10/27/18 12:30 - ADDITIONAL ORDERS Additional order review: Laboratory Results 10/27/18 10/27/18 12:30 12:30 Sodium 137 Potassium 4.2 Chloride 103 Carbon Dioxide 21 Anion Gap 13 BUN 14 Creatinine 1.3 Creat Clearance w eGFR 40.04 Random Glucose 99 Lactic Acid 1.7 Uric Acid 3.5 Calcium 9.7 Phosphorus 3.6 Magnesium 2.2 Total Bilirubin 0.4 AST 14 L ALT 14 Alkaline Phosphatase 47 LD Total 120 Troponin I 0.07 H Total Protein 8.3 H Albumin 1.3 L 10/27/18 12:30 RBC 2.95 L MCV 92.8 MCHC 33.2 RDW 15.9 H MPV 8.6 D Neutrophils % 83.4 H D Lymphocytes % 12.0 D Monocytes % 4.4 Eosinophils % 0.0 D Basophils % 0.2 - RADIOLOGY Radiology Studies Ordered: Category Date Time Status CHEST X-RAY PORTABLE* [RAD] Stat Radiology 10/27/18 11:37 Completed <Virginia Hurt - Last Filed: 10/27/18 14:41> *DC/Admit/Observation/Transfer <Aron Gomez - Last Filed: 10/27/18 13:35> - Discharge Dispostion Decision to Admit order: Yes <Virginia Hurt - Last Filed: 10/27/18 14:41> Diagnosis at time of Disposition: Dehydration - Discharge Dispostion Condition at time of disposition: Stable - Referrals Referrals: Sade Johnson MD [Primary Care Provider] - - Patient Instructions - Post Discharge Activity
[2018-10-27 13:54] LABS: BASO % 0.2 % (0-2.0); HEMATOCRIT 27.3 % (32.4-45.2); HEMOGLOBIN 9.1 GM/dL (10.7-15.3); MCH 30.8 pg (25.7-33.7); MCHC 33.2 g/dl (32.0-36.0); MEAN CELL VOLUME 92.8 fl (80-96); MEAN PLT VOLUME 8.6 fl (7.5-11.1); MONO % 4.4 % (3.8-10.2); NEUT % 83.4 % (42.8-82.8); PLATELET COUNT 161 K/MM3 (134-434); RBC 2.95 M/mm3 (3.60-5.2); RDW 15.9 % (11.6-15.6); WHITE BLOOD COUNT 8.4 K/mm3 (4.0-10.0)
[2018-10-27 14:26] LABS: ALBUMIN 1.3 g/dl (3.4-5.0); ALK PHOS 47 U/L (45-117); ANION GAP 13 MMOL/L (8-16); BILIRUBIN,TOTAL 0.4 mg/dL (0.2-1); BLOOD UREA NITROGEN 14 mg/dL (7-18); CALCIUM 9.7 mg/dL (8.5-10.1); CHLORIDE 103 mmol/L (98-107); CO2 21 mmol/L (21-32); CREATININE 1.3 mg/dL (0.55-1.3); GLUCOSE,RANDOM 99 mg/dL (74-106); LDH 120 U/L (84-246); MAGNESIUM 2.2 mg/dL (1.8-2.4); PHOSPHOROUS 3.6 mg/dL (2.5-4.9); POTASSIUM 4.2 mmol/L (3.5-5.1); SGOT/AST 14 U/L (15-37); SGPT/ALT 14 U/L (13-61); SODIUM 137 mmol/L (136-145); TOT PROT 8.3 g/dl (6.4-8.2); URIC ACID 3.5 mg/dL (2.6-7.2)
[2018-10-27] MEDS ORDERED: ONDANSETRON 8 MG TABLET (FP) PO ONE (16:53)
--- NOTE | 2018-10-27 17:07 | CONSULT ---
Consult Consult Specialty:: Nephrology Reason for Consultation:: proteinuria - History of Present Illness Chief Complaint: nausea History of Present Illness: Pt is a 73 year old female with pmhx of HTN, HLD, hypothyroidism, multiple myeloma, and protenuria who presents to the ER with nausea and decrease PO intake. She was due for her third chemotherapy treatment today. She was recently discharged from the hospital. She also complains of decreased appetite. - History Source History Provided By: Patient, Medical Record - Past Medical History Cardio/Vascular: Yes: HTN Pulmonary: Yes: Asthma Renal/: Yes: Renal Inusuff, Other (proteinuria) Heme/Onc: Yes: Other (multiple myeloma) - Alcohol/Substance Use Hx Alcohol Use: No - Smoking History Smoking history: Never smoked Have you smoked in the past 12 months: No Aproximately how many cigarettes per day: 0 If you are a former smoker, when did you quit?: 1987 Home Medications - Allergies Allergies/Adverse Reactions: Allergies Allergy/AdvReac Type Severity Reaction Status Date / Time Penicillins Allergy Severe Rash Verified 10/27/18 10:03 - Home Medications Home Medications: Ambulatory Orders Gabapentin 300 mg PO TID 06/14/13 Atorvastatin Ca [Lipitor] 40 mg PO HS 10/11/18 Diltiazem Cd [Cardizem Cd -] 240 mg PO DAILY 10/11/18 Famotidine [Pepcid] 40 mg PO DAILY 10/11/18 Levothyroxine [Synthroid -] 25 mcg PO DAILY 10/11/18 Losartan Potassium 25 mg PO DAILY 10/11/18 Meloxicam 15 mg PO DAILY 10/11/18 Methimazole 10 mg PO BID 10/11/18 [place]-3/Dha/Epa/Fish Oil [[place] 3 500 Softgel] 1 each PO DAILY 10/11/18 Omeprazole 20 mg PO DAILY 10/11/18 Family Disease History - Family Disease History Family History: Denies Review of Systems - Review of Systems Constitutional: reports: Loss of Appetite, Malaise, Weakness. denies: Chills, Fever Eyes: reports: No Symptoms HENT: reports: No Symptoms Neck: reports: No Symptoms Cardiovascular: reports: No Symptoms Respiratory: reports: No Symptoms Gastrointestinal: reports: Nausea Genitourinary: reports: No Symptoms Musculoskeletal: reports: Muscle Weakness Integumentary: reports: No Symptoms Neurological: reports: No Symptoms Endocrine: reports: No Symptoms Hematology/Lymphatic: reports: No Symptoms Physical Exam Vital Signs: Vital Signs Temperature 98.2 F 10/27/18 11:42 Pulse Rate 97 H 10/27/18 11:42 Respiratory Rate 18 10/27/18 11:42 Blood Pressure 112/66 10/27/18 11:42 O2 Sat by Pulse Oximetry (%) 98 10/27/18 11:42 Constitutional: Yes: Calm, Other (appears dehydrated) Eyes: Yes: Conjunctiva Clear HENT: Yes: Atraumatic Cardiovascular: Yes: S1, S2 Respiratory: Yes: CTA Bilaterally Gastrointestinal: Yes: Soft Renal/: Yes: WNL Musculoskeletal: Yes: WNL Edema: No Neurological: Yes: Oriented Psychiatric: Yes: Oriented Labs: CBC, BMP 10/27/18 12:30 10/27/18 12:30 Imaging - Results Chest X-ray: Report Reviewed Problem List - Problems (1) Dehydration Code(s): E86.0 - DEHYDRATION (2) Hypothyroidism Code(s): E03.9 - HYPOTHYROIDISM, UNSPECIFIED (3) Multiple myeloma Code(s): C90.00 - MULTIPLE MYELOMA NOT HAVING ACHIEVED REMISSION (4) Nausea Code(s): R11.0 - NAUSEA (5) Proteinuria Code(s): R80.9 - PROTEINURIA, UNSPECIFIED Assessment/Plan Laboratory Tests 10/20/18 10/27/18 06:00 12:30 Creatinine 0.9 1.3 Impression 1. proteinuria 2. multiple myeloma 3. failure to thrive 4. dehydration 5. htn 6. HLD 7. hypothyroidism 8. elevated PTT 9. anemia Plan - start fluids - check ua and prt to scientific informatics analyst ration - discussed with oncology - repeat labs in am - monitor for nausea - avoid nsaids - unable to do biopsy as ptt was elevated, repeat levels - will follow
[2018-10-27] MEDS ORDERED: SODIUM CHLORIDE 1,000 ML IV SCH (17:15)
[2018-10-27] MEDS ORDERED: ONDANSETRON *ODT* 4 MG TABLET ONE (17:46)
--- NOTE | 2018-10-27 18:05 | CON.CARD ---
Consult Consult Specialty:: Cardiology Referred by:: Dr. Hurt Reason for Consultation:: Elevated Troponin - History of Present Illness Chief Complaint: Nausea History of Present Illness: 73F with multiple myeloma on chemo, thyroid disorder, ASHD (coronary ca2+ on recent chest CT), elevated PTT, possible PHTN, + CINTIA, factor X deficiency, recent admission for bronchitis, dehydration and nausea. Was in hospital for about 2 weeks- records reviewed in our EMR Now presents again with nausea, hypotensive. BP improved with normal saline. Denies CP, SOB, pleuritic CP. No palps or syncope. No PND or orthopnea. No fever or chills. No diarrhea, no abdominal pain. Seen by GI last admission: given Reglan. CT abdomen had showed gastric thickening- nonspecific finding for which outpt f/u was recommended Asked to see her now for TnI mildly above reference range. - History Source History Provided By: Patient, Medical Record - Past Medical History Cardio/Vascular: Yes: CAD (recent CT chest showed coronary calcification), HTN Pulmonary: Yes: Asthma Gastrointestinal: Yes: Other (hiatal hernia, nonspecific gastric thickening om abdominal CT recently) Renal/: Yes: Renal Inusuff, Other (proteinuria) Heme/Onc: Yes: Other (Multiple Myeloma, Elevated PTT) Psych: No: Addictions, Anxiety, Bipolar, Depression, Panic, Psychosis, Schizophrenia, Other Musculoskeletal: No: Bursitis, Chronic low back pain, Hemiparesis, Hemiplegia, Osteoarthritis, Paraplegia, Other Rheumatology: No: Fibromyalgia, Gout, Lupus, Rheumatoid Arthritis, Sarcoidosis, Vasculitis, Other ENT: No: Allergic Rhinitis, Sinusitis, Other Endocrine: No: [place]'s Disease, [place]'s Disease, Diabetes Insipidus, Diabetes Mellitus, Hyperparathyroidism, Hyperthyroidism, Hypothyroidism, Osteopenia, SIADH, Other Dermatology: No: Basal Cell, Cellulitis, Eczema, Melanoma, Psoriasis, Squamous Cell, Other - Past Surgical History Past Surgical History: Yes: Hernia Repair - Alcohol/Substance Use Hx Alcohol Use: No - Smoking History Smoking history: Never smoked Have you smoked in the past 12 months: No Aproximately how many cigarettes per day: 0 If you are a former smoker, when did you quit?: 1987 - Social History ADL: Independent History of Recent Travel: No Home Medications - Allergies Allergies/Adverse Reactions: Allergies Allergy/AdvReac Type Severity Reaction Status Date / Time Penicillins Allergy Severe Rash Verified 10/27/18 10:03 - Home Medications Home Medications: Ambulatory Orders Gabapentin 300 mg PO TID 06/14/13 Atorvastatin Ca [Lipitor] 40 mg PO HS 10/11/18 Diltiazem Cd [Cardizem Cd -] 240 mg PO DAILY 10/11/18 Famotidine [Pepcid] 40 mg PO DAILY 10/11/18 Levothyroxine [Synthroid -] 25 mcg PO DAILY 10/11/18 Losartan Potassium 25 mg PO DAILY 10/11/18 Meloxicam 15 mg PO DAILY 10/11/18 Methimazole 10 mg PO BID 10/11/18 [place]-3/Dha/Epa/Fish Oil [[place] 3 500 Softgel] 1 each PO DAILY 10/11/18 Omeprazole 20 mg PO DAILY 10/11/18 Family Disease History - Family Disease History Family History: Unremarkable (no early CAD or SCD) Review of Systems Unable to obtain ROS, reason: see HPI - Review of Systems Constitutional: reports: Malaise, Weakness Eyes: denies: No Symptoms, Blind Spots, Blurred Vision, Double Vision, Eye Pain , Floaters, Photophobia, Recent Change in Vision, Other HENT: denies: No Symptoms, Difficult Swallowing, Ear Discharge, Ear Pain, Epistaxis, Gingival Bleeding, Hearing Loss, Mouth Swelling, Nasal Congestion, Ocular Prosthesis, Throat Pain, Toothache, Ringing in Ears, Other Neck: denies: No Symptoms, Decreased ROM, Lumps, Pain on Movement, Stiffness, Swollen Glands, Tenderness, Other Cardiovascular: denies: No Symptoms, Chest Pain, Edema, Palpitations, Shortness of Breath, Other Respiratory: denies: No Symptoms, Cough, Exercise Intolerance, Hemoptysis, Orthopnea, PND, Snoring, SOB, SOB on Exertion, Wheezing, Other Gastrointestinal: reports: Nausea Genitourinary: denies: No Symptoms, Burning, Discharge, Dysuria, Flank Pain, Frequency, Hematuria, Incontinence, Lesions, Menses, Pain, Testicular Mass, Testicular Pain, Testicular Swelling, Urgency, Vaginal Bleeding, Other Breasts: denies: No Symptoms Reported, See HPI, Breast Implants, Discharge from Nipple, Lumps, Pain, Skin Changes, Other Musculoskeletal: denies: No Symptoms, Back Pain, Crepitus, Decreased ROM, Extremity Pain, Joint Pain, Joint Swelling, Muscle Pain, Muscle Cramps, Muscle Weakness, Other Integumentary: denies: No Symptoms, Blister, Bruising, Change in Color, Eczema, Erythema, Incision, Lesions, Lump, Pallor, Pruritis, Rash, Wound, Other Neurological: denies: No Symptoms, Change in LOC, Change in Speech, Confusion, Dizziness, Headache, Incoordination, Numbness, Parasthesia, Pre-Existing Deficit , Seizure, Syncope, Tremors, Unsteady Gait, Weakness, Other Endocrine: denies: No Symptoms, Excessive Sweating, Flushing, Increased Hunger, Increased Thirst, Intolerance to Cold, Intolerance to Heat, Unexplained Weight Gain, Unexplained Weight Loss, Other Hematology/Lymphatic: denies: No Symptoms, Easily Bruised, Excessive Bleeding, Swollen Glands, Other Psychiatric: denies: No Symptoms, Altered Sleep Pattern, Anxiety, Depression, Hallucinations, Panic, Paranoia, Suicidal, Other - Risk Factors Known Risk Factors: Yes: Hypertension Vital Signs: Vital Signs Temperature 98.2 F 10/27/18 11:42 Pulse Rate 97 H 10/27/18 11:42 Respiratory Rate 18 10/27/18 11:42 Blood Pressure 112/66 10/27/18 11:42 O2 Sat by Pulse Oximetry (%) 98 10/27/18 11:42 Constitutional: Yes: No Distress, Calm Eyes: Yes: Conjunctiva Clear, EOM Intact Neck: Yes: Supple, Trachea Midline Respiratory: Yes: CTA Bilaterally (no rales or wheezing) Gastrointestinal: Yes: Soft (no rebound or guarding) Cardiovascular: Yes: Regular Rate and Rhythm JVD: No Carotid Bruit: No PMI: Non-Displaced Heart Sounds: Yes: S1, S2 (RRR, no M/R/G) Edema: No Peripheral Pulses WNL: Yes Neurological: Yes: Alert, Oriented Psychiatric: Yes: WNL - Other Data Labs, Other Data: CBC, BMP 10/27/18 12:30 10/27/18 12:30 Troponin, BNP 10/27/18 10/27/18 12:30 15:30 Troponin I 0.07 H 0.08 H Troponin, BNP 10/27/18 10/27/18 12:30 15:30 Troponin I 0.07 H 0.08 H NSR with NSST changes. When compared to ecg on file last admission, no sig ST changes Echo: Pending Imaging - Results Chest X-ray: Report Reviewed, Image Reviewed Cat Scan: Report Reviewed EKG: Image Reviewed Problem List - Problems (1) Multiple myeloma Code(s): C90.00 - MULTIPLE MYELOMA NOT HAVING ACHIEVED REMISSION Qualifiers: Multiple myeloma remission status: unspecified Qualified Code(s): C90.00 - Multiple myeloma not having achieved remission (2) Hypotension Code(s): I95.9 - HYPOTENSION, UNSPECIFIED Qualifiers: Hypotension type: unspecified hypotension type Qualified Code(s): I95.9 - Hypotension, unspecified (3) Nausea Assessment/Plan: Persistent Code(s): R11.0 - NAUSEA (4) Troponin I above reference range Code(s): R74.8 - ABNORMAL LEVELS OF OTHER SERUM ENZYMES (5) Abnormal ECG Code(s): R94.31 - ABNORMAL ELECTROCARDIOGRAM [ECG] [EKG] (6) ASHD (arteriosclerotic heart disease) Assessment/Plan: Based on Coronary Calcification on CT Code(s): I25.10 - ATHSCL HEART DISEASE OF [place] CORONARY ARTERY W/O ANG PCTRS (7) Acute on chronic renal failure Code(s): N17.9 - ACUTE KIDNEY FAILURE, UNSPECIFIED; N18.9 - CHRONIC KIDNEY DISEASE, UNSPECIFIED Qualifiers: Chronic kidney disease stage: stage 2 (mild) (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 - HEREDITARY DEFICIENCY OF OTHER CLOTTING FACTORS (9) CINTIA positive Code(s): R76.8 - OTHER SPECIFIED ABNORMAL IMMUNOLOGICAL FINDINGS IN SERUM (10) PHT (pulmonary hypertension) Assessment/Plan: Dilated PA on chest CT Code(s): I27.20 - PULMONARY HYPERTENSION, UNSPECIFIED (11) Gastric wall thickening Assessment/Plan: Noted on recent CT Code(s): K31.89 - OTHER DISEASES OF STOMACH AND DUODENUM (12) Dehydration Code(s): E86.0 - DEHYDRATION (13) Anemia Code(s): D64.9 - ANEMIA, UNSPECIFIED Qualifiers: Chronic kidney disease stage: unspecified stage (14) Hypothyroidism Code(s): E03.9 - HYPOTHYROIDISM, UNSPECIFIED Qualifiers: Hypothyroidism type: acquired Qualified Code(s): E03.9 - Hypothyroidism, unspecified Assessment/Plan IMP: Multiple myeloma on chemo Persistent nausea Hypotension, probably secondary to volume depletion Acute on chronic renal failure, likely due to pre-renal state/volume depletion CAD, based on recent Chest CT showing coronary artery calcification Abnormal ECG: Nonspecific ST changes Elevated TnI, above reference range + CINTIA titer 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 Hydrate with normal saline. 2. Echo for EF and wall motion assessment; assess for presence of PHTN as recent CT shows dilated PA 3. Serial cardiac enzymes on telemetry while BP is improving. 4. When BP stable, after hydration, would further risk stratify with Lexiscan MPI (Coronary Ca2+/hx HTN/Abnl ECG/Borderline TnI +) Mild TnI elevation likely due to subendocardial ischemia resulting from hypotension. Doubt ACS. 5. Hold BP meds for now. 6. Renal fxn should improve with continued hydration 7. Further w/u of + CINTIA// Factor X deficiency/ gastric wall thickening as per PMD and Heme. 8. Unclear etiology of nausea: ?chemo related? Plan to r/o ischemic etiology as above. Will follow- thank you.
[2018-10-27] MEDS ORDERED: PANTOPRAZOLE SODIUM 40 MG/100 ML BAG IVPB ONE (19:12)
[2018-10-27] MEDS: PANTOPRAZOLE SODIUM 40 MG VIAL IVPB SCH (19:21)
--- NOTE | 2018-10-27 19:59 | CONSULT ---
Consult - text type - Consultation Consultation Note: Pt. is a 73 y.o. F w/ PMHx. of HTN, HLD, Hypothyroidism, and recently diagnosed multiple myeloma presents to the ED for nausea that began this morning before receiveing third chemotherapy treatment. Pt. states that she has been having decreased appetite for a a couple weeks now. Pt. denies any vomiting, fevers, constipation, diarrhea, shortness of breath, abdominal pain, dizziness or lightheadedness. - Past Medical History Anemia: Yes Asthma: Yes Cancer: Yes (myeloma) Cardiac Disorders: Yes (pt denies) COPD: Yes GI Disorders: Yes (HIATAL HERNIA) HTN: Yes Hypercholesterolemia: Yes Liver Disease: Yes (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) Thyroid Disease: Yes (Hypothyroidism ) - Suicide/Smoking/Psychosocial Hx Smoking History: Never smoked Allergies/Adverse Reactions: Allergies Allergy/AdvReac Type Severity Reaction Status Date / Time Penicillins Allergy Severe Rash Verified 10/27/18 10:03 Home Medications: Ambulatory Orders Gabapentin 300 mg PO TID 06/14/13 Atorvastatin Ca [Lipitor] 40 mg PO HS 10/11/18 Diltiazem Cd [Cardizem Cd -] 240 mg PO DAILY 10/11/18 Famotidine [Pepcid] 40 mg PO DAILY 10/11/18 Levothyroxine [Synthroid -] 25 mcg PO DAILY 10/11/18 Losartan Potassium 25 mg PO DAILY 10/11/18 Meloxicam 15 mg PO DAILY 10/11/18 Methimazole 10 mg PO BID 10/11/18 [place]-3/Dha/Epa/Fish Oil [[place] 3 500 Softgel] 1 each PO DAILY 10/11/18 Omeprazole 20 mg PO DAILY 10/11/18 - Vital Signs Last Vital Signs Temp Pulse Resp BP Pulse Ox 98.2 F 97 H 18 112/66 98 10/27/18 11:42 10/27/18 11:42 10/27/18 11:42 10/27/18 11:42 10/27/18 11:42 Cor: RSR, No murmurs, No gallops Lungs: Clear to P&A Abd: Soft, Normal bowel sounds, No organomegaly Ext:No significant edema Laboratory Results 10/27/18 10/27/18 12:30 12:30 Sodium 137 Potassium 4.2 Chloride 103 Carbon Dioxide 21 Anion Gap 13 BUN 14 Creatinine 1.3 Creat Clearance w eGFR 40.04 Random Glucose 99 Lactic Acid 1.7 Uric Acid 3.5 Calcium 9.7 Phosphorus 3.6 Magnesium 2.2 Total Bilirubin 0.4 AST 14 L ALT 14 Alkaline Phosphatase 47 LD Total 120 Troponin I 0.07 H Total Protein 8.3 H Albumin 1.3 L 10/27/18 12:30 RBC 2.95 L MCV 92.8 MCHC 33.2 RDW 15.9 H MPV 8.6 D Neutrophils % 83.4 H D Lymphocytes % 12.0 D Monocytes % 4.4 Eosinophils % 0.0 D Basophils % 0.2 A/P Pt. is a 73 y.o. F w/ PMHx. of HTN, HLD, Hypothyroidism, and recent progression to active multiple myeloma presents to the ED for nausea/vomoting that began this morning. Patient also hypotensive. Improved with hydration in the ER For VCD 3rd dose velcade/1st dose cytoxan rediscussed side effects--myelosuppression/fever/sepsis/neuropathy/ thrombocytopenia/tumor lysis
[2018-10-28 00:37] VITALS: BMI 25.9
[2018-10-28 06:31] LABS: BASO % 0.2 % (0-2.0); HEMATOCRIT 25.4 % (32.4-45.2); HEMOGLOBIN 8.4 GM/dL (10.7-15.3); LYMPH % 14.9 % (8-40); MCH 31.1 pg (25.7-33.7); MEAN CELL VOLUME 94.5 fl (80-96); MEAN PLT VOLUME 8.2 fl (7.5-11.1); MONO % 0.9 % (3.8-10.2); PLATELET COUNT 139 K/MM3 (134-434); RBC 2.69 M/mm3 (3.60-5.2); RDW 16.2 % (11.6-15.6); WHITE BLOOD COUNT 8.6 K/mm3 (4.0-10.0)
[2018-10-28 06:39] LABS: INR 1.18 (0.83-1.09)
[2018-10-28 06:40] LABS: ACTIVATED PTT 37.1 SECONDS (25.2-36.5)
[2018-10-28] MEDS: GABAPENTIN 300 MG CAPSULE (FP) PO SCH ×3 (06:52→22:28)
[2018-10-28] MEDS: HEPARIN NA (PORCINE) 5,000 UNITS/ML 1ML VIAL SQ SCH ×3 (06:52→22:28)
[2018-10-28] MEDS: LEVOTHYROXINE NA 25 MCG TABLET (FP) PO SCH ×2 (07:15→08:18)
[2018-10-28 07:33] LABS: ALBUMIN 1.3 g/dl (3.4-5.0); ALK PHOS 43 U/L (45-117); ANION GAP 12 MMOL/L (8-16); BILIRUBIN,TOTAL 0.2 mg/dL (0.2-1); BLOOD UREA NITROGEN 20 mg/dL (7-18); CALCIUM 9.2 mg/dL (8.5-10.1); CHLORIDE 105 mmol/L (98-107); CO2 21 mmol/L (21-32); CREATININE 1.4 mg/dL (0.55-1.3); GLUCOSE,RANDOM 105 mg/dL (74-106); POTASSIUM 4.1 mmol/L (3.5-5.1); SGOT/AST 12 U/L (15-37); SGPT/ALT 13 U/L (13-61); SODIUM 138 mmol/L (136-145); TOT PROT 7.8 g/dl (6.4-8.2)
--- NOTE | 2018-10-28 08:55 | PN ---
Progress Note, Physician Chief Complaint: BP improved. Feeling better, nausea subsided. TnI flat. - Current Medication List Current Medications: Active Medications Atorvastatin Calcium (Lipitor -) 40 mg PO HS [facility] Diltiazem HCl (Cardizem Cd -) 240 mg PO DAILY [facility] Gabapentin (Neurontin -) 300 mg PO TID [facility] Last Admin: 10/28/18 06:52 Dose: 300 mg Heparin Sodium (Porcine) (Heparin -) 5,000 unit SQ TID [facility] Last Admin: 10/28/18 06:52 Dose: 5,000 unit Sodium Chloride (Normal Saline -) 1,000 mls @ 75 mls/hr IV ASDIR [facility] Last Admin: 10/27/18 18:30 Dose: 75 mls/hr Levothyroxine Sodium (Synthroid -) 25 mcg PO DAILY@0700 [facility] Last Admin: 10/28/18 08:18 Dose: 25 mcg Losartan Potassium (Cozaar -) 25 mg PO DAILY [facility] Methimazole (Tapazole -) 10 mg PO BID [facility] Non-Formulary Medication (Meloxicam [Meloxicam]) 15 mg PO DAILY [facility] Pantoprazole Sodium (Protonix Iv) 40 mg IVPB DAILY [facility] Last Admin: 10/27/18 19:21 Dose: 40 mg - Objective Vital Signs: Vital Signs Temperature 98.5 F 10/28/18 05:40 Pulse Rate 99 H 10/28/18 05:40 Respiratory Rate 18 10/28/18 05:40 Blood Pressure 104/65 10/28/18 05:40 O2 Sat by Pulse Oximetry (%) 99 10/27/18 23:15 Constitutional: Yes: No Distress, Calm Eyes: Yes: Conjunctiva Clear Cardiovascular: Yes: Regular Rate and Rhythm Respiratory: Yes: CTA Bilaterally Gastrointestinal: Yes: Soft Edema: No Neurological: Yes: Alert, Oriented ...Motor Strength: WNL Labs: CBC, BMP 10/28/18 05:30 10/28/18 05:30 INR, PTT INR 1.18 (0.83-1.09) H 10/28/18 05:30 Fibrinogen 297.0 mg/dL (238-498) 10/28/18 05:30 Laboratory Tests 10/27/18 10/28/18 10/28/18 12:30 01:50 05:30 WBC 8.6 Hgb 8.4 L Plt Count 139 PTT (Actin FS) Sodium Potassium BUN Creatinine Troponin I 0.07 H 0.07 H 10/28/18 10/28/18 05:30 05:30 WBC Hgb Plt Count PTT (Actin FS) 37.1 H Sodium 138 Potassium 4.1 BUN 20 H Creatinine 1.4 H Troponin I - ....Imaging EKG: Image Reviewed (NSR) Problem List - Problems (1) Multiple myeloma Code(s): C90.00 - MULTIPLE MYELOMA NOT HAVING ACHIEVED REMISSION Qualifiers: Multiple myeloma remission status: unspecified Qualified Code(s): C90.00 - Multiple myeloma not having achieved remission (2) Hypotension Code(s): I95.9 - HYPOTENSION, UNSPECIFIED Qualifiers: Hypotension type: unspecified hypotension type Qualified Code(s): I95.9 - Hypotension, unspecified (3) Nausea Code(s): R11.0 - NAUSEA (4) Troponin I above reference range Code(s): R74.8 - ABNORMAL LEVELS OF OTHER SERUM ENZYMES (5) Abnormal ECG Code(s): R94.31 - ABNORMAL ELECTROCARDIOGRAM [ECG] [EKG] (6) ASHD (arteriosclerotic heart disease) Code(s): I25.10 - ATHSCL HEART DISEASE OF [place] CORONARY ARTERY W/O ANG PCTRS (7) Acute on chronic renal failure Code(s): N17.9 - ACUTE KIDNEY FAILURE, UNSPECIFIED; N18.9 - CHRONIC KIDNEY DISEASE, UNSPECIFIED Qualifiers: Chronic kidney disease stage: stage 2 (mild) (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 - HEREDITARY DEFICIENCY OF OTHER CLOTTING FACTORS (9) CINTIA positive Code(s): R76.8 - OTHER SPECIFIED ABNORMAL IMMUNOLOGICAL FINDINGS IN SERUM (10) PHT (pulmonary hypertension) Code(s): I27.20 - PULMONARY HYPERTENSION, UNSPECIFIED (11) Gastric wall thickening Code(s): K31.89 - OTHER DISEASES OF STOMACH AND DUODENUM (12) Dehydration Code(s): E86.0 - DEHYDRATION (13) Anemia Code(s): D64.9 - ANEMIA, UNSPECIFIED Qualifiers: Chronic kidney disease stage: unspecified stage (14) Hypothyroidism Code(s): E03.9 - HYPOTHYROIDISM, UNSPECIFIED Qualifiers: Hypothyroidism type: acquired Qualified Code(s): E03.9 - Hypothyroidism, unspecified Assessment/Plan IMP: Multiple myeloma on chemo Persistent nausea Hypotension, probably secondary to volume depletion Acute on chronic renal failure, likely due to pre-renal state/volume depletion CAD, based on recent Chest CT showing coronary artery calcification Abnormal ECG: Nonspecific ST changes Elevated TnI, above reference range + CINTIA titer 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 Hydrate with normal saline. 2. Echo for EF and wall motion assessment; assess for presence of PHTN as recent CT shows dilated PA 3. Serial cardiac enzymes thus far flat 4. When BP stable, after hydration, would further risk stratify with Lexiscan MPI (Coronary Ca2+/hx HTN/Abnl ECG/Borderline TnI +) Mild TnI elevation likely due to subendocardial ischemia resulting from hypotension. Doubt ACS. 5. Hold BP meds for now. 6. Renal fxn should improve with continued hydration 7. Further w/u of + CINTIA// Factor X deficiency/ gastric wall thickening as per PMD and Heme. 8. Unclear etiology of nausea: ?chemo related? Plan to r/o ischemic etiology as above.
[2018-10-28] MEDS ORDERED: PATIENT'S OWN MEDICATION (NON-FORMULARY) (Meloxicam [Meloxicam] 15 MG) PO SCH (10:00)
[2018-10-28] MEDS ORDERED: PATIENT'S OWN MEDICATION (NON-FORMULARY) (Famotidine [Pepcid] 40 MG) PO SCH (10:00)
[2018-10-28] MEDS ORDERED: LEVOTHYROXINE NA 25 MCG TABLET (FP) PO SCH (10:00)
[2018-10-28] MEDS ORDERED: PATIENT'S OWN MEDICATION (NON-FORMULARY) (Omeprazole [Omeprazole] 20 MG) PO SCH (10:00)
[2018-10-28] MEDS ORDERED: LOSARTAN POTASSIUM 25 MG TABLET PO SCH (10:00)
[2018-10-28] MEDS ORDERED: METHIMAZOLE 10 MG TABLET (FP) PO SCH (10:00)
[2018-10-28 10:16] LABS: RATIO URIN PROTEIN/URIN CREAT 3.75 MG/DL
--- NOTE | 2018-10-28 12:15 | EKG ---
Test Reason : Blood Pressure : / mmHG Vent. Rate : 101 BPM Atrial Rate : 101 BPM P-R Int : 182 ms QRS Dur : 086 ms QT Int : 350 ms P-R-T Axes : 073 013 102 degrees QTc Int : 453 ms SINUS TACHYCARDIA POSSIBLE LEFT ATRIAL ENLARGEMENT SEPTAL INFARCT (CITED ON OR BEFORE 27-OCT-2018) ABNORMAL ECG WHEN COMPARED WITH ECG OF 11-OCT-2018 13:48, QUESTIONABLE CHANGE IN INITIAL FORCES OF SEPTAL LEADS Confirmed by FILIBERTO PATEL MD ([id number]) on 10/28/2018 12:15:31 PM Referred By: Confirmed By:FILIBERTO PATEL MD
--- NOTE | 2018-10-28 12:33 | ECHO ---
Name: SHERRY SIMPSON Exam:Adult Echocardiogram Study Date: 10/28/2018 09:12 AM Age: 73 yrs Reason For Study: hypotension Height: 64 in Weight: 158 lb BSA: 1.8 m2 MMode/2D Measurements & Calculations IVSd: 1.0 cm Ao root diam: 2.9 cm LVIDd: 4.3 cm LA dimension: 3.0 cm LVIDs: 2.8 cm LVPWd: 1.1 cm LVPWs: 1.2 cm EDV(Teich): 84.3 ml ESV(Teich): 29.1 ml RV S Carlos: 13.7 cm/sec Doppler Measurements & Calculations MV E max carlos: 63.2 cm/sec Ao V2 max: 141.2 cm/sec MV A max carlos: 99.7 cm/sec Ao max P.0 mmHg MV E/A: 0.63 MV dec time: 0.05 sec LV V1 max P.7 mmHg PA V2 max: 118.8 cm/sec LV V1 max: 119.4 cm/sec PA max P.6 mmHg Med Peak E' Carlos: 10.1 cm/sec Med E/e': 6.3 Lat Peak E' Carlos: 12.1 cm/sec Lat E/e': 5.2 Procedure A complete two-dimensional transthoracic echocardiogram was performed (2D, M-mode, Doppler and color flow Doppler). Left Ventricle The left ventricular size, thickness and function are normal. The left ventricular ejection fraction is normal. Ejection Fraction = 60-65%. The left ventricular wall motion is normal. Right Ventricle The right ventricle is normal in size and function. Atria Normal left and right atrial size and function. Mitral Valve There is no mitral regurgitation noted. Tricuspid Valve There is trace tricuspid regurgitation. There was insufficient TR detected to calculate RV systolic p ressure. Aortic Valve The aortic valve is trileaflet. No hemodynamically significant valvular aortic stenosis. No aortic regurgitation is present. Pulmonic Valve There is no pulmonic valvular regurgitation. Great Vessels The aortic root is normal size. Pericardium/Pleura There is no pericardial effusion. Interpretation Summary The left ventricular size, thickness and function are normal The right ventricle is normal in size and function. There is trace tricuspid regurgitation. MD Donald Mckeon 10/28/2018 12:33 PM
[2018-10-28] MEDS: PANTOPRAZOLE SODIUM 40 MG VIAL IVPB SCH (12:45)
[2018-10-28] MEDS ORDERED: SODIUM CHLORIDE 1,000 ML IV SCH ×2 (14:01→14:02)
--- NOTE | 2018-10-28 14:01 | PN ---
Progress Note, Physician History of Present Illness: Pt seen and examined at bedside. She feels that her appetite is starting to improve. She feels better after getting fluids. - Current Medication List Current Medications: Active Medications Atorvastatin Calcium (Lipitor -) 40 mg PO HS COUNTS INCLUDE 234 BEDS AT THE [facility] Diltiazem HCl (Cardizem Cd -) 240 mg PO DAILY COUNTS INCLUDE 234 BEDS AT THE [facility] Last Admin: 10/28/18 12:45 Dose: 240 mg Gabapentin (Neurontin -) 300 mg PO TID COUNTS INCLUDE 234 BEDS AT THE [facility] Last Admin: 10/28/18 06:52 Dose: 300 mg Heparin Sodium (Porcine) (Heparin -) 5,000 unit SQ TID COUNTS INCLUDE 234 BEDS AT THE [facility] Last Admin: 10/28/18 06:52 Dose: 5,000 unit Sodium Chloride (Normal Saline -) 1,000 mls @ 75 mls/hr IV ASDIR COUNTS INCLUDE 234 BEDS AT THE [facility] Last Admin: 10/27/18 18:30 Dose: 75 mls/hr Levothyroxine Sodium (Synthroid -) 25 mcg PO DAILY@0700 COUNTS INCLUDE 234 BEDS AT THE [facility] Last Admin: 10/28/18 08:18 Dose: 25 mcg Losartan Potassium (Cozaar -) 25 mg PO DAILY COUNTS INCLUDE 234 BEDS AT THE [facility] Last Admin: 10/28/18 12:45 Dose: 25 mg Non-Formulary Medication (Meloxicam [Meloxicam]) 15 mg PO DAILY COUNTS INCLUDE 234 BEDS AT THE [facility] Pantoprazole Sodium (Protonix Iv) 40 mg IVPB DAILY COUNTS INCLUDE 234 BEDS AT THE [facility] Last Admin: 10/28/18 12:45 Dose: 40 mg - Objective Vital Signs: Vital Signs Temperature 98 F 10/28/18 10:00 Pulse Rate 108 H 10/28/18 10:00 Respiratory Rate 18 10/28/18 10:00 Blood Pressure 105/60 10/28/18 10:00 O2 Sat by Pulse Oximetry (%) 99 10/28/18 09:00 Constitutional: Yes: Calm Eyes: Yes: Conjunctiva Clear Neck: Yes: Supple Cardiovascular: Yes: S1, S2 Respiratory: Yes: CTA Bilaterally Gastrointestinal: Yes: Soft Genitourinary: Yes: WNL Musculoskeletal: Yes: WNL Edema: No Neurological: Yes: Oriented Psychiatric: Yes: Oriented Labs: CBC, BMP 10/28/18 05:30 10/28/18 05:30 INR, PTT INR 1.18 (0.83-1.09) H 10/28/18 05:30 Fibrinogen 297.0 mg/dL (238-498) 10/28/18 05:30 Problem List - Problems (1) Dehydration Code(s): E86.0 - DEHYDRATION (2) Hypothyroidism Code(s): E03.9 - HYPOTHYROIDISM, UNSPECIFIED Qualifiers: Hypothyroidism type: acquired Qualified Code(s): E03.9 - Hypothyroidism, unspecified (3) Multiple myeloma Code(s): C90.00 - MULTIPLE MYELOMA NOT HAVING ACHIEVED REMISSION Qualifiers: Multiple myeloma remission status: unspecified Qualified Code(s): C90.00 - Multiple myeloma not having achieved remission (4) Nausea Code(s): R11.0 - NAUSEA (5) Proteinuria Code(s): R80.9 - PROTEINURIA, UNSPECIFIED Assessment/Plan Current Medications Generic Name Dose Route Start Last Admin Trade Name Freq PRN Reason Stop Dose Admin Atorvastatin Calcium 40 mg 10/28/18 22:00 Lipitor - PO HS P[facility]O Diltiazem HCl 240 mg 10/28/18 10:00 10/28/18 12:45 Cardizem Cd - PO 240 mg DAILY [facility] Administration Gabapentin 300 mg 10/28/18 06:00 10/28/18 06:52 Neurontin - PO 300 mg TID [facility] Administration Heparin Sodium (Porcine) 5,000 unit 10/28/18 06:00 10/28/18 06:52 Heparin - SQ 5,000 unit TID [facility] Administration Sodium Chloride 1,000 mls @ 75 mls/hr 10/27/18 17:15 10/27/18 18:30 Normal Saline - IV 75 mls/hr ASDIR [facility] Administration Levothyroxine Sodium 25 mcg 10/28/18 07:00 10/28/18 08:18 Synthroid - PO 25 mcg DAILY@0700 [facility] Administration Losartan Potassium 25 mg 10/28/18 10:00 10/28/18 12:45 Cozaar - PO 25 mg DAILY [facility] Administration Non-Formulary Medication 15 mg 10/28/18 10:00 Meloxicam [Meloxicam] PO DAILY [facility] Pantoprazole Sodium 40 mg 10/27/18 18:00 10/28/18 12:45 Protonix Iv IVPB 40 mg DAILY [facility] Administration Laboratory Tests 10/18/18 10/20/18 10/28/18 08:30 08:00 06:45 Protein/Creatinin Ratio 9.14 8.84 3.75 Impression 1. proteinuria 2. multiple myeloma 3. failure to thrive 4. dehydration 5. htn 6. HLD 7. hypothyroidism 8. elevated PTT 9. anemia Plan - cont fluids, can start to decrease rate - repeat labs in am - proteinuria improving - will start to titrated dose of losartan again - avoid nsaids - unable to do biopsy as ptt was elevated - will follow
[2018-10-28] MEDS: ATORVASTATIN CA 40 MG TABLET (FP) PO SCH (22:28)
--- NOTE | 2018-10-28 23:02 | PN ---
Progress Note (short form) - Note Progress Note: Patient seen and examined Feels well AFVSS Cor: RSR, No murmurs, No gallops Lungs: Clear to P&A Abd: Soft, Normal bowel sounds, No organomegaly Ext:No significant edema Labs/meds reviewed A/P 73 y/o patient with myeloma/? amyloid, on velcade/cytoxan/dexamethasone a/w vomiting/hypotension dose no.3 velcade and dose no.1 cytoxan on 10/27 for stress test
--- NOTE | 2018-10-28 23:35 | HP ---
Admitting History and Physical - Admission History of Present Illness: Pt is a 73 y/o female, with PMH significant for multiple myeloma (diagnosed 4 years ago, on chemo weekly, followed by Dr. Stuart), HTN, HLD, and hypothyroidism. Pt presented to the ER complaining of nausea and weakness for 1 day. Patient notes she began feeling nauseous, without vomit, following her 3rd chemotherapy treatment. Patient denies abdominal pain. Patient was brought to the ED as per request of Dr. Stuart for admission as pt was too ill to get chemo today. - Past Medical History Cardiovascular: Yes: CAD (recent CT chest showed coronary calcification), HTN Pulmonary: Yes: Asthma Gastrointestinal: Yes: Other (hiatal hernia,) Renal/: Yes: Renal Inusuff, Other (proteinuria) Heme/Onc: Yes: Other (Multiple Myeloma, Elevated PTT) - Past Surgical History Past Surgical History: Yes: Hernia Repair - Smoking History Smoking history: Former smoker Have you smoked in the past 12 months: No Aproximately how many cigarettes per day: 0 If you are a former smoker, when did you quit?: 1987 - Alcohol/Substance Use Hx Alcohol Use: No - Social History ADL: Independent History of Recent Travel: No Home Medications - Allergies Allergies/Adverse Reactions: Allergies Allergy/AdvReac Type Severity Reaction Status Date / Time Penicillins Allergy Severe Rash Verified 10/27/18 10:03 - Home Medications Home Medications: Ambulatory Orders Gabapentin 300 mg PO TID 06/14/13 Atorvastatin Ca [Lipitor] 40 mg PO HS 10/11/18 Diltiazem Cd [Cardizem Cd -] 240 mg PO DAILY 10/11/18 Famotidine [Pepcid] 40 mg PO DAILY 10/11/18 Levothyroxine [Synthroid -] 25 mcg PO DAILY 10/11/18 Losartan Potassium 25 mg PO DAILY 10/11/18 Meloxicam 15 mg PO DAILY 10/11/18 Methimazole 10 mg PO BID 10/11/18 Raymond-3/Dha/Epa/Fish Oil [Raymond 3 500 Softgel] 1 each PO DAILY 10/11/18 Omeprazole 20 mg PO DAILY 10/11/18 Family Disease History - Family Disease History Family History: Unremarkable Review of Systems - Review of Systems Constitutional: reports: Lethargy, Loss of Appetite, Malaise, Weakness Eyes: reports: No Symptoms HENT: reports: No Symptoms Neck: reports: No Symptoms Cardiovascular: reports: No Symptoms Respiratory: reports: No Symptoms Gastrointestinal: reports: Nausea Genitourinary: reports: No Symptoms Physical Examination Vital Signs: Vital Signs Temperature 98.1 F 10/28/18 20:38 Pulse Rate 99 H 10/28/18 20:38 Respiratory Rate 20 10/28/18 20:38 Blood Pressure 111/70 10/28/18 20:38 O2 Sat by Pulse Oximetry (%) 95 10/28/18 20:38 Constitutional: Yes: Well Nourished, No Distress HENT: Yes: WNL Neck: Yes: WNL, Supple Cardiovascular: Yes: WNL, Regular Rate and Rhythm Respiratory: Yes: WNL, Regular, CTA Bilaterally Gastrointestinal: Yes: WNL, Normal Bowel Sounds, Soft Musculoskeletal: Yes: WNL Extremities: Yes: WNL Edema: No Peripheral Pulses WNL: Yes Neurological: Yes: WNL, Alert, Oriented ...Motor Strength: WNL Labs: CBC, BMP 10/28/18 05:30 10/28/18 05:30 Problem List - Problems (1) Nausea Assessment/Plan: Multifactorial Due to chemotx Pt also has noted gastric wall thickening on ct scanPt seen by GI on previous admission about 2 weeks ago Will recall GI consult Code(s): R11.0 - NAUSEA (2) Troponin I above reference range Assessment/Plan: Due to h/o CAD Pt has been hypotensive Will need further w/u as per cardio ?Stress testing Code(s): R74.8 - ABNORMAL LEVELS OF OTHER SERUM ENZYMES (3) Multiple myeloma Assessment/Plan: Chemotx was held due to weakness/nausea As per onco Code(s): C90.00 - MULTIPLE MYELOMA NOT HAVING ACHIEVED REMISSION Qualifiers: Multiple myeloma remission status: unspecified Qualified Code(s): C90.00 - Multiple myeloma not having achieved remission (4) Acute on chronic renal failure Assessment/Plan: As per renal Monitor labs Pt unable to get renal bx due to elevated PTT Cont IVF Code(s): N17.9 - ACUTE KIDNEY FAILURE, UNSPECIFIED; N18.9 - CHRONIC KIDNEY DISEASE, UNSPECIFIED Qualifiers: Chronic kidney disease stage: stage 2 (mild) (5) HTN (hypertension) Assessment/Plan: Pt has been hypotensive Antihypertensives on hold Cont to monitor BP Pt is getting IVF Code(s): I10 - ESSENTIAL (PRIMARY) HYPERTENSION (6) HLD (hyperlipidemia) Assessment/Plan: Cont lipitor Code(s): E78.5 - HYPERLIPIDEMIA, UNSPECIFIED (7) Hypothyroidism Assessment/Plan: Cont levothyroxine Monitor TSH Code(s): E03.9 - HYPOTHYROIDISM, UNSPECIFIED Qualifiers: Hypothyroidism type: acquired Qualified Code(s): E03.9 - Hypothyroidism, unspecified (8) Anemia Assessment/Plan: Multifactorial Code(s): D64.9 - ANEMIA, UNSPECIFIED Qualifiers: Chronic kidney disease stage: unspecified stage
[2018-10-29 04:15] LABS: IGA IMMUNOGLOBULIN 2169 mg/dL (64-422); IGM IMMUNOGLOBULIN 19 mg/dL (26-217)
[2018-10-29] MEDS: LEVOTHYROXINE NA 50 MCG TABLET (FP) PO SCH (05:57)
[2018-10-29] MEDS: HEPARIN NA (PORCINE) 5,000 UNITS/ML 1ML VIAL SQ SCH ×3 (05:57→21:47)
[2018-10-29 06:50] LABS: BASO % 0.3 % (0-2.0); HEMOGLOBIN 8.6 GM/dL (10.7-15.3); LYMPH % 18.1 % (8-40); MCH 31.1 pg (25.7-33.7); MCHC 33.1 g/dl (32.0-36.0); MEAN CELL VOLUME 93.8 fl (80-96); MEAN PLT VOLUME 8.4 fl (7.5-11.1); MONO % 6.2 % (3.8-10.2); NEUT % 75.4 % (42.8-82.8); PLATELET COUNT 125 K/MM3 (134-434); RBC 2.78 M/mm3 (3.60-5.2); RDW 16.2 % (11.6-15.6); WHITE BLOOD COUNT 7.5 K/mm3 (4.0-10.0)
[2018-10-29 08:05] LABS: ALBUMIN 1.3 g/dl (3.4-5.0); ALK PHOS 47 U/L (45-117); ANION GAP 11 MMOL/L (8-16); BILIRUBIN,TOTAL 0.2 mg/dL (0.2-1); BLOOD UREA NITROGEN 27 mg/dL (7-18); CALCIUM 8.3 mg/dL (8.5-10.1); CHLORIDE 106 mmol/L (98-107); CO2 21 mmol/L (21-32); CREATININE 1.5 mg/dL (0.55-1.3); GLUCOSE,RANDOM 102 mg/dL (74-106); POTASSIUM 3.9 mmol/L (3.5-5.1); SGOT/AST 15 U/L (15-37); SGPT/ALT 13 U/L (13-61); SODIUM 137 mmol/L (136-145); TOT PROT 7.8 g/dl (6.4-8.2)
[2018-10-29] MEDS ORDERED: REGADENOSON 0.4 MG/5 ML PRE-FILLED SYRINGE IVPUSH ONE ×2 (09:30→10:48)
--- NOTE | 2018-10-29 09:32 | PN ---
Progress Note, Physician Chief Complaint: TELE: NSR, APC - Current Medication List Current Medications: Active Medications Atorvastatin Calcium (Lipitor -) 40 mg PO HS [facility] Last Admin: 10/28/18 22:28 Dose: 40 mg Diltiazem HCl (Cardizem Cd -) 240 mg PO DAILY [facility] Last Admin: 10/28/18 12:45 Dose: 240 mg Heparin Sodium (Porcine) (Heparin -) 5,000 unit SQ TID [facility] Last Admin: 10/29/18 05:57 Dose: 5,000 unit Sodium Chloride (Normal Saline -) 1,000 mls @ 75 mls/hr IV ASDIR [facility] Last Admin: 10/28/18 14:10 Dose: 75 mls/hr Levothyroxine Sodium (Synthroid -) 50 mcg PO DAILY@0700 [facility] Last Admin: 10/29/18 05:57 Dose: 50 mcg Losartan Potassium (Cozaar -) 50 mg PO DAILY [facility] Pantoprazole Sodium (Protonix Iv) 40 mg IVPB DAILY [facility] Last Admin: 10/28/18 12:45 Dose: 40 mg - Objective Vital Signs: Vital Signs Temperature 98.3 F 10/29/18 06:00 Pulse Rate 92 H 10/29/18 06:00 Respiratory Rate 20 10/29/18 06:00 Blood Pressure 101/60 10/29/18 06:00 O2 Sat by Pulse Oximetry (%) 95 10/28/18 20:38 Constitutional: Yes: Calm Cardiovascular: Yes: Regular Rate and Rhythm Respiratory: Yes: CTA Bilaterally Gastrointestinal: Yes: Soft Edema: No Neurological: Yes: Alert ...Motor Strength: WNL Labs: CBC, BMP 10/29/18 05:30 10/29/18 05:30 INR, PTT INR 1.18 (0.83-1.09) H 10/28/18 05:30 Fibrinogen 297.0 mg/dL (238-498) 10/28/18 05:30 Laboratory Tests 10/27/18 10/27/18 10/28/18 12:30 15:30 01:50 WBC Hgb Plt Count Potassium BUN Creatinine Troponin I 0.07 H 0.08 H 0.07 H 10/29/18 10/29/18 05:30 05:30 WBC 7.5 Hgb 8.6 L Plt Count 125 L Potassium 3.9 BUN 27 H Creatinine 1.5 H Troponin I - ....Imaging EKG: Image Reviewed Problem List - Problems (1) Multiple myeloma Code(s): C90.00 - MULTIPLE MYELOMA NOT HAVING ACHIEVED REMISSION Qualifiers: Multiple myeloma remission status: unspecified Qualified Code(s): C90.00 - Multiple myeloma not having achieved remission (2) Hypotension Code(s): I95.9 - HYPOTENSION, UNSPECIFIED Qualifiers: Hypotension type: unspecified hypotension type Qualified Code(s): I95.9 - Hypotension, unspecified (3) Nausea Code(s): R11.0 - NAUSEA (4) Troponin I above reference range Code(s): R74.8 - ABNORMAL LEVELS OF OTHER SERUM ENZYMES (5) Abnormal ECG Code(s): R94.31 - ABNORMAL ELECTROCARDIOGRAM [ECG] [EKG] (6) ASHD (arteriosclerotic heart disease) Code(s): I25.10 - ATHSCL HEART DISEASE OF [place] CORONARY ARTERY W/O ANG PCTRS (7) Acute on chronic renal failure Code(s): N17.9 - ACUTE KIDNEY FAILURE, UNSPECIFIED; N18.9 - CHRONIC KIDNEY DISEASE, UNSPECIFIED Qualifiers: Chronic kidney disease stage: stage 2 (mild) (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 - HEREDITARY DEFICIENCY OF OTHER [place]OTTING FACTORS (9) CINTIA positive Code(s): R76.8 - OTHER SPECIFIED ABNORMAL IMMUNOLOGICAL FINDINGS IN SERUM (10) PHT (pulmonary hypertension) Code(s): I27.20 - PULMONARY HYPERTENSION, UNSPECIFIED (11) Gastric wall thickening Code(s): K31.89 - OTHER DISEASES OF STOMACH AND DUODENUM (12) Dehydration Code(s): E86.0 - DEHYDRATION (13) Anemia Code(s): D64.9 - ANEMIA, UNSPECIFIED Qualifiers: Chronic kidney disease stage: unspecified stage (14) Hypothyroidism Code(s): E03.9 - HYPOTHYROIDISM, UNSPECIFIED Qualifiers: Hypothyroidism type: acquired Qualified Code(s): E03.9 - Hypothyroidism, unspecified Assessment/Plan IMP: Multiple myeloma on chemo Persistent nausea Hypotension, probably secondary to volume depletion Acute on chronic renal failure, likely due to pre-renal state/volume depletion CAD, based on recent Chest CT showing coronary artery calcification Abnormal ECG: Nonspecific ST changes Elevated TnI, above reference range + CINTIA titer 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 Hydrate with normal saline. 2. Echo normal. 3. Serial cardiac enzymes thus far flat 4.Lexiscan Nuclear today Mild TnI elevation likely due to subendocardial ischemia resulting from hypotension. Doubt ACS. 5. Hold BP meds for now. 6. Renal fxn should improve with continued hydration 7. Further w/u of + CINTIA// Factor X deficiency/ gastric wall thickening as per PMD and Heme. 8. Unclear etiology of nausea: ?chemo related? Plan to r/o ischemic etiology as above.
[2018-10-29] MEDS: LOSARTAN POTASSIUM 25 MG TABLET PO SCH ×2 (11:05→12:57)
[2018-10-29] MEDS: PANTOPRAZOLE SODIUM 40 MG VIAL IVPB SCH ×2 (11:06→12:57)
[2018-10-29] MEDS ORDERED: SODIUM CHLORIDE 1,000 ML IV SCH (12:30)
[2018-10-29] MEDS ORDERED: POLYETHYLENE GLYCOL 3350 119 GM BTL PO ONE (12:33)
[2018-10-29] MEDS: ALLOPURINOL 300 MG TABLET (FP) PO SCH (12:56)
[2018-10-29 14:04] LABS: LDH 158 U/L (84-246)
--- NOTE | 2018-10-29 15:29 | PN ---
Progress Note, Physician History of Present Illness: Pt seen and examined at bedside. She is awake and alert. She denies shortness of breath. She feels that her appetite is improving. - Current Medication List Current Medications: Active Medications Allopurinol (Zyloprim -) 300 mg PO DAILY REPLACED BY [facility] Last Admin: 10/29/18 12:56 Dose: 300 mg Atorvastatin Calcium (Lipitor -) 40 mg PO HS REPLACED BY [facility] Last Admin: 10/28/18 22:28 Dose: 40 mg Diltiazem HCl (Cardizem Cd -) 240 mg PO DAILY REPLACED BY [facility] Last Admin: 10/29/18 12:57 Dose: 240 mg Heparin Sodium (Porcine) (Heparin -) 5,000 unit SQ TID REPLACED BY [facility] Last Admin: 10/29/18 13:02 Dose: 5,000 unit Sodium Chloride (Normal Saline -) 1,000 mls @ 75 mls/hr IV ASDIR REPLACED BY [facility] Last Admin: 10/28/18 14:10 Dose: 75 mls/hr Sodium Chloride (Normal Saline -) 1,000 mls @ 60 mls/hr IV ASDIR REPLACED BY [facility] Last Admin: 10/29/18 12:56 Dose: 60 mls/hr Levothyroxine Sodium (Synthroid -) 50 mcg PO DAILY@0700 REPLACED BY [facility] Last Admin: 10/29/18 05:57 Dose: 50 mcg Losartan Potassium (Cozaar -) 50 mg PO DAILY REPLACED BY [facility] Last Admin: 10/29/18 11:05 Dose: Not Given Pantoprazole Sodium (Protonix Iv) 40 mg IVPB DAILY REPLACED BY [facility] Last Admin: 10/29/18 12:57 Dose: 40 mg - Objective Vital Signs: Vital Signs Temperature 98 F 10/29/18 10:00 Pulse Rate 88 10/29/18 10:00 Respiratory Rate 18 10/29/18 10:00 Blood Pressure 116/64 10/29/18 10:00 O2 Sat by Pulse Oximetry (%) 95 10/29/18 09:00 Constitutional: Yes: Calm Eyes: Yes: Conjunctiva Clear HENT: Yes: Atraumatic Neck: Yes: Supple Cardiovascular: Yes: S1, S2 Respiratory: Yes: CTA Bilaterally Gastrointestinal: Yes: Soft Genitourinary: Yes: WNL Musculoskeletal: Yes: WNL Edema: No Neurological: Yes: Oriented Psychiatric: Yes: Oriented Labs: CBC, BMP 10/29/18 05:30 10/29/18 05:30 INR, PTT INR 1.18 (0.83-1.09) H 10/28/18 05:30 Fibrinogen 297.0 mg/dL (238-498) 10/28/18 05:30 Problem List - Problems (1) Dehydration Code(s): E86.0 - DEHYDRATION (2) Hypothyroidism Code(s): E03.9 - HYPOTHYROIDISM, UNSPECIFIED Qualifiers: Hypothyroidism type: acquired Qualified Code(s): E03.9 - Hypothyroidism, unspecified (3) Multiple myeloma Code(s): C90.00 - MULTIPLE MYELOMA NOT HAVING ACHIEVED REMISSION Qualifiers: Multiple myeloma remission status: unspecified Qualified Code(s): C90.00 - Multiple myeloma not having achieved remission (4) Nausea Code(s): R11.0 - NAUSEA (5) Proteinuria Code(s): R80.9 - PROTEINURIA, UNSPECIFIED Assessment/Plan Current Medications Generic Name Dose Route Start Last Admin Trade Name Freq PRN Reason Stop Dose Admin Allopurinol 300 mg 10/29/18 12:30 10/29/18 12:56 Zyloprim - PO 300 mg DAILY [facility] Administration Atorvastatin Calcium 40 mg 10/28/18 22:00 10/28/18 22:28 Lipitor - PO 40 mg HS [facility] Administration Diltiazem HCl 240 mg 10/28/18 10:00 10/29/18 12:57 Cardizem Cd - PO 240 mg DAILY [facility] Administration Heparin Sodium (Porcine) 5,000 unit 10/28/18 06:00 10/29/18 13:02 Heparin - SQ 5,000 unit TID [facility] Administration Sodium Chloride 1,000 mls @ 75 mls/hr 10/28/18 14:02 10/28/18 14:10 Normal Saline - IV 75 mls/hr ASDIR [facility] Administration Sodium Chloride 1,000 mls @ 60 mls/hr 10/29/18 12:30 10/29/18 12:56 Normal Saline - IV 60 mls/hr ASDIR [facility] Administration Levothyroxine Sodium 50 mcg 10/29/18 07:00 10/29/18 05:57 Synthroid - PO 50 mcg DAILY@0700 [facility] Administration Losartan Potassium 50 mg 10/28/18 14:02 10/29/18 11:05 Cozaar - PO Not Given DAILY [facility] Pantoprazole Sodium 40 mg 10/27/18 18:00 10/29/18 12:57 Protonix Iv IVPB 40 mg DAILY [facility] Administration Impression 1. proteinuria 2. multiple myeloma 3. failure to thrive 4. dehydration 5. htn 6. HLD 7. hypothyroidism 8. elevated PTT 9. 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
[2018-10-29] MEDS ORDERED: SODIUM CHLORIDE 0.45% 1,000 ML IV SCH (15:30)
[2018-10-29] MEDS: ATORVASTATIN CA 40 MG TABLET (FP) PO SCH (21:47)
--- NOTE | 2018-10-29 22:35 | PN ---
Progress Note, Physician - Current Medication List Current Medications: Active Medications Allopurinol (Zyloprim -) 300 mg PO DAILY [facility] Last Admin: 10/29/18 12:56 Dose: 300 mg Atorvastatin Calcium (Lipitor -) 40 mg PO HS [facility] Last Admin: 10/29/18 21:47 Dose: 40 mg Diltiazem HCl (Cardizem Cd -) 240 mg PO DAILY [facility] Last Admin: 10/29/18 12:57 Dose: 240 mg Heparin Sodium (Porcine) (Heparin -) 5,000 unit SQ TID [facility] Last Admin: 10/29/18 21:47 Dose: 5,000 unit Sodium Chloride (1/2 Normal Saline) 1,000 mls @ 83 mls/hr IV ASDIR [facility] Last Admin: 10/29/18 15:34 Dose: 83 mls/hr Levothyroxine Sodium (Synthroid -) 50 mcg PO DAILY@0700 [facility] Last Admin: 10/29/18 05:57 Dose: 50 mcg Losartan Potassium (Cozaar -) 50 mg PO DAILY [facility] Last Admin: 10/29/18 11:05 Dose: Not Given Pantoprazole Sodium (Protonix Iv) 40 mg IVPB DAILY [facility] Last Admin: 10/29/18 12:57 Dose: 40 mg - Objective Vital Signs: Vital Signs Temperature 99.5 F 10/29/18 17:30 Pulse Rate 94 H 10/29/18 17:30 Respiratory Rate 18 10/29/18 21:00 Blood Pressure 122/67 10/29/18 17:30 O2 Sat by Pulse Oximetry (%) 95 10/29/18 21:00 Labs: CBC, BMP 10/29/18 05:30 10/29/18 05:30 INR, PTT INR 1.18 (0.83-1.09) H 10/28/18 05:30 Fibrinogen 297.0 mg/dL (238-498) 10/28/18 05:30 Problem List - Problems (1) Nausea Code(s): R11.0 - NAUSEA (2) Troponin I above reference range Code(s): R74.8 - ABNORMAL LEVELS OF OTHER SERUM ENZYMES (3) Multiple myeloma Code(s): C90.00 - MULTIPLE MYELOMA NOT HAVING ACHIEVED REMISSION Qualifiers: Multiple myeloma remission status: unspecified Qualified Code(s): C90.00 - Multiple myeloma not having achieved remission (4) Acute on chronic renal failure Code(s): N17.9 - ACUTE KIDNEY FAILURE, UNSPECIFIED; N18.9 - CHRONIC KIDNEY DISEASE, UNSPECIFIED Qualifiers: Chronic kidney disease stage: stage 2 (mild) (5) HTN (hypertension) Code(s): I10 - ESSENTIAL (PRIMARY) HYPERTENSION (6) HLD (hyperlipidemia) Code(s): E78.5 - HYPERLIPIDEMIA, UNSPECIFIED (7) Hypothyroidism Code(s): E03.9 - HYPOTHYROIDISM, UNSPECIFIED Qualifiers: Hypothyroidism type: acquired Qualified Code(s): E03.9 - Hypothyroidism, unspecified (8) Anemia Code(s): D64.9 - ANEMIA, UNSPECIFIED Qualifiers: Chronic kidney disease stage: unspecified stage
--- NOTE | 2018-10-29 23:14 | PN ---
Progress Note (short form) - Note Progress Note: Patient seen and examined Feels well AFVSS Cor: RSR, No murmurs, No gallops Lungs: Clear to P&A Abd: Soft, Normal bowel sounds, No organomegaly Ext:No significant edema Labs/meds reviewed A/P 73 y/o patient with myeloma/? amyloid, on velcade/cytoxan/dexamethasone dose no.3 velcade and dose no.1 cytoxan on 10/27 Discussed meds in detail with patient ARB on hold On IV hydration discussed with nephrology Proteinuria improved discussed with son Ministerio --family meeting around 2 pm on 11/01
[2018-10-30] MEDS: HEPARIN NA (PORCINE) 5,000 UNITS/ML 1ML VIAL SQ SCH ×3 (06:04→21:30)
[2018-10-30] MEDS: LEVOTHYROXINE NA 50 MCG TABLET (FP) PO SCH (06:05)
[2018-10-30] MEDS: PANTOPRAZOLE SODIUM 40 MG VIAL IVPB SCH (09:55)
[2018-10-30] MEDS: ALLOPURINOL 300 MG TABLET (FP) PO SCH (09:55)
[2018-10-30 12:05] LABS: ALBUMIN 1.3 g/dl (3.4-5.0); ALK PHOS 50 U/L (45-117); ANION GAP 7 MMOL/L (8-16); BILIRUBIN,TOTAL 0.2 mg/dL (0.2-1); BLOOD UREA NITROGEN 17 mg/dL (7-18); CALCIUM 8.3 mg/dL (8.5-10.1); CHLORIDE 107 mmol/L (98-107); CO2 20 mmol/L (21-32); CREATININE 1.2 mg/dL (0.55-1.3); GLUCOSE,RANDOM 94 mg/dL (74-106); POTASSIUM 5.2 mmol/L (3.5-5.1); SGOT/AST 41 U/L (15-37); SGPT/ALT 15 U/L (13-61); SODIUM 135 mmol/L (136-145); TOT PROT 7.8 g/dl (6.4-8.2)
[2018-10-30 12:09] LABS: BASO % 0.6 % (0-2.0); EOS % 0.2 % (0-4.5); HEMATOCRIT 24.3 % (32.4-45.2); HEMOGLOBIN 8.5 GM/dL (10.7-15.3); LYMPH % 33.2 % (8-40); MCH 32.5 pg (25.7-33.7); MEAN CELL VOLUME 92.8 fl (80-96); MEAN PLT VOLUME 8.2 fl (7.5-11.1); MONO % 14.1 % (3.8-10.2); NEUT % 51.9 % (42.8-82.8); PLATELET COUNT 104 K/MM3 (134-434); RBC 2.62 M/mm3 (3.60-5.2); RDW 16.2 % (11.6-15.6); WHITE BLOOD COUNT 2.8 K/mm3 (4.0-10.0)
--- NOTE | 2018-10-30 13:40 | PN ---
Progress Note (short form) - Note Progress Note: Patient seen in follow up. No new complaints. No significant events overnight. Inpatient Meds reviewed. Current Medications Generic Name Dose Route Start Last Admin Trade Name Edgar PRN Reason Stop Dose Admin Allopurinol 300 mg 10/29/18 12:30 10/30/18 09:55 Zyloprim - PO 300 mg DAILY [facility] Administration Atorvastatin Calcium 40 mg 10/28/18 22:00 10/29/18 21:47 Lipitor - PO 40 mg HS [facility] Administration Diltiazem HCl 240 mg 10/28/18 10:00 10/30/18 09:55 Cardizem Cd - PO 240 mg DAILY [facility] Administration Heparin Sodium (Porcine) 5,000 unit 10/28/18 06:00 10/30/18 06:04 Heparin - SQ 5,000 unit TID [facility] Administration Sodium Chloride 1,000 mls @ 83 mls/hr 10/29/18 15:30 10/29/18 15:34 1/2 Normal Saline IV 83 mls/hr ASDIR [facility] Administration Levothyroxine Sodium 50 mcg 10/29/18 07:00 10/30/18 06:05 Synthroid - PO 50 mcg DAILY@0700 [facility] Administration Losartan Potassium 50 mg 10/28/18 14:02 10/29/18 11:05 Cozaar - PO Not Given DAILY [facility] Pantoprazole Sodium 40 mg 10/27/18 18:00 10/30/18 09:55 Protonix Iv IVPB 40 mg DAILY [facility] Administration On Examination: Last Vital Signs Temp Pulse Resp BP Pulse Ox 99 F 93 H 20 109/58 L 96 10/30/18 10:00 10/30/18 10:00 10/30/18 10:00 10/30/18 10:00 10/30/18 09:00 General: In no acute distress, lying comfortably in bed. Extremities: No pallor or icterus. No pedal edema. No palpable lymphadenopathy. Chest: breathing confortably Abdomen: Non-distended, non-tender, no palpable organomegaly. Neuro: Alert, oriented, non-focal. Labs: CBC, BMP 10/30/18 12:00 10/30/18 10:35 Assessment. IgA myeloma, with anemia and proteinuria (normal creatinine). Untreated previously. Started treatment with Velcade/Dex - 1st dose on 10/14. Mild coagulapathy - possible factor X/amyloid related - holding off on renal biopsy pending resolution - improving
--- NOTE | 2018-10-30 15:06 | CONSULT ---
Consult Consult Specialty:: Endocrinology Referred by:: Casey Salazar MD Reason for Consultation:: Hypoethyroidism - History of Present Illness Chief Complaint: Nausea, weakness History of Present Illness: This is a 73 y/o female, with h/o multiple myeloma (diagnosed 4 years ago, on chemo weekly, followed by Dr. Stuart), HTN, HLD, and hypothyroidismn for many years on LT4 25mcg daily presented to the ER complaining of nausea and weakness for 1 day. Patient noted she began feeling nauseous, without vomit, following her 3rd chemotherapy treatment. Patient denied abdominal pain. Patient was brought to the ED as per request of Dr. Stuart for admission as pt was too ill to get chemo today. Pt currently feels good. No Nausea. Pt takes LT4 25mcg daily with all other meds. Talked to Pharmacist at [facility]. Pt was LT4 25mcg daily for many years and was not on Methimazole. Pt gives h/o thryroid ca in son. - History Source History Provided By: Patient, Medical Record Limitations to Obtaining History: Poor Historian - Past Medical History Cardio/Vascular: Yes: CAD (recent CT chest showed coronary calcification), HTN Pulmonary: Yes: Asthma Gastrointestinal: Yes: Other (hiatal hernia,) Renal/: Yes: Renal Inusuff, Other (proteinuria) Psych: No: Addictions, Anxiety, Bipolar, Depression, Panic, Psychosis, Schizophrenia, Other Musculoskeletal: No: Bursitis, Chronic low back pain, Hemiparesis, Hemiplegia, Osteoarthritis, Paraplegia, Other Rheumatology: No: Fibromyalgia, Gout, Lupus, Rheumatoid Arthritis, Sarcoidosis, Vasculitis, Other ENT: No: Allergic Rhinitis, Sinusitis, Other Endocrine: Yes: Hypothyroidism. No: [place]'s Disease, [place]'s Disease, Diabetes Insipidus, Diabetes Mellitus, Hyperparathyroidism, Hyperthyroidism, Osteopenia, SIADH, Other Dermatology: No: Basal Cell, Cellulitis, Eczema, Melanoma, Psoriasis, Squamous Cell, Other - Past Surgical History Past Surgical History: Yes: Hernia Repair - Alcohol/Substance Use Hx Alcohol Use: No - Smoking History Smoking history: Former smoker Have you smoked in the past 12 months: No Aproximately how many cigarettes per day: 0 If you are a former smoker, when did you quit?: 1987 - Social History ADL: Independent History of Recent Travel: No Home Medications - Allergies Allergies/Adverse Reactions: Allergies Allergy/AdvReac Type Severity Reaction Status Date / Time Penicillins Allergy Severe Rash Verified 10/27/18 10:03 - Home Medications Home Medications: Ambulatory Orders Gabapentin 300 mg PO TID 06/14/13 Atorvastatin Ca [Lipitor] 40 mg PO HS 10/11/18 Diltiazem Cd [Cardizem Cd -] 240 mg PO DAILY 10/11/18 Famotidine [Pepcid] 40 mg PO DAILY 10/11/18 Levothyroxine [Synthroid -] 25 mcg PO DAILY 10/11/18 Losartan Potassium 25 mg PO DAILY 10/11/18 Meloxicam 15 mg PO DAILY 10/11/18 Methimazole 10 mg PO BID 10/11/18 Martin-3/Dha/Epa/Fish Oil [Martin 3 500 Softgel] 1 each PO DAILY 10/11/18 Omeprazole 20 mg PO DAILY 10/11/18 Family Disease History - Family Disease History Other Family History: Son has Thyroid ca Review of Systems - Review of Systems Constitutional: reports: No Symptoms Eyes: reports: No Symptoms HENT: reports: No Symptoms Neck: reports: No Symptoms Cardiovascular: reports: No Symptoms Respiratory: reports: No Symptoms Gastrointestinal: reports: No Symptoms Genitourinary: reports: No Symptoms Musculoskeletal: reports: No Symptoms Neurological: reports: No Symptoms Endocrine: reports: No Symptoms Physical Exam Vital Signs: Vital Signs Temperature 99 F 10/30/18 14:00 Pulse Rate 83 10/30/18 14:00 Respiratory Rate 20 10/30/18 14:00 Blood Pressure 108/60 10/30/18 14:00 O2 Sat by Pulse Oximetry (%) 96 10/30/18 09:00 Constitutional: Yes: No Distress, Calm Eyes: Yes: Conjunctiva Clear, EOM Intact HENT: Yes: Atraumatic, Normocephalic Neck: Yes: Supple, Trachea Midline Cardiovascular: Yes: Regular Rate and Rhythm Respiratory: Yes: Regular, CTA Bilaterally Gastrointestinal: Yes: Normal Bowel Sounds, Soft Musculoskeletal: Yes: WNL Extremities: Yes: WNL Edema: No Neurological: Yes: Alert, Oriented Labs: CBC, BMP 10/30/18 12:00 10/30/18 10:35 Assessment/Plan AP: Hypothyroidism: TSH 10.1 FT4 0.55 Rpt TSH with TPO Agree with LT4 50mcg for now Discussed with pt need to take LT4 in fasting state at least one hour before any food or drink in the morning. will f/u Multiple Myeloma HTN HLD Anemia
--- NOTE | 2018-10-30 16:10 | PN ---
Progress Note, Physician History of Present Illness: Pt seen and examined at bedside. She is awake and alert. She denies shortness or breath. - Current Medication List Current Medications: Active Medications Allopurinol (Zyloprim -) 300 mg PO DAILY [facility] Last Admin: 10/30/18 09:55 Dose: 300 mg Atorvastatin Calcium (Lipitor -) 40 mg PO HS [facility] Last Admin: 10/29/18 21:47 Dose: 40 mg Diltiazem HCl (Cardizem Cd -) 240 mg PO DAILY [facility] Last Admin: 10/30/18 09:55 Dose: 240 mg Heparin Sodium (Porcine) (Heparin -) 5,000 unit SQ TID [facility] Last Admin: 10/30/18 14:11 Dose: 5,000 unit Sodium Chloride (1/2 Normal Saline) 1,000 mls @ 83 mls/hr IV ASDIR [facility] Last Admin: 10/29/18 15:34 Dose: 83 mls/hr Levothyroxine Sodium (Synthroid -) 50 mcg PO DAILY@0700 [facility] Last Admin: 10/30/18 06:05 Dose: 50 mcg Losartan Potassium (Cozaar -) 50 mg PO DAILY [facility] Last Admin: 10/29/18 11:05 Dose: Not Given Pantoprazole Sodium (Protonix Iv) 40 mg IVPB DAILY [facility] Last Admin: 10/30/18 09:55 Dose: 40 mg - Objective Vital Signs: Vital Signs Temperature 99 F 10/30/18 14:00 Pulse Rate 83 10/30/18 14:00 Respiratory Rate 20 10/30/18 14:00 Blood Pressure 108/60 10/30/18 14:00 O2 Sat by Pulse Oximetry (%) 96 10/30/18 09:00 Constitutional: Yes: Calm Eyes: Yes: Conjunctiva Clear HENT: Yes: Atraumatic Neck: Yes: Supple Cardiovascular: Yes: S1, S2 Respiratory: Yes: CTA Bilaterally Gastrointestinal: Yes: Normal Bowel Sounds, Soft Genitourinary: Yes: WNL Musculoskeletal: Yes: WNL Edema: Yes Edema: LLE: Trace, RLE: Trace Neurological: Yes: Oriented Psychiatric: Yes: Oriented Labs: CBC, BMP 10/30/18 12:00 10/30/18 10:35 INR, PTT INR 1.18 (0.83-1.09) H 10/28/18 05:30 Fibrinogen 297.0 mg/dL (238-498) 10/28/18 05:30 Problem List - Problems (1) Dehydration Code(s): E86.0 - DEHYDRATION (2) Hypothyroidism Code(s): E03.9 - HYPOTHYROIDISM, UNSPECIFIED Qualifiers: Qualified Code(s): E03.9 - Hypothyroidism, unspecified (3) Multiple myeloma Code(s): C90.00 - MULTIPLE MYELOMA NOT HAVING ACHIEVED REMISSION Qualifiers: Qualified Code(s): C90.00 - Multiple myeloma not having achieved remission (4) Nausea Code(s): R11.0 - NAUSEA (5) Proteinuria Code(s): R80.9 - PROTEINURIA, UNSPECIFIED Assessment/Plan Current Medications Generic Name Dose Route Start Last Admin Trade Name Freq PRN Reason Stop Dose Admin Allopurinol 300 mg 10/29/18 12:30 10/30/18 09:55 Zyloprim - PO 300 mg DAILY [facility] Administration Atorvastatin Calcium 40 mg 10/28/18 22:00 10/29/18 21:47 Lipitor - PO 40 mg HS [facility] Administration Diltiazem HCl 240 mg 10/28/18 10:00 10/30/18 09:55 Cardizem Cd - PO 240 mg DAILY [facility] Administration Heparin Sodium (Porcine) 5,000 unit 10/28/18 06:00 10/30/18 14:11 Heparin - SQ 5,000 unit TID [facility] Administration Sodium Chloride 1,000 mls @ 83 mls/hr 10/29/18 15:30 10/29/18 15:34 1/2 Normal Saline IV 83 mls/hr ASDIR [facility] Administration Levothyroxine Sodium 50 mcg 10/29/18 07:00 10/30/18 06:05 Synthroid - PO 50 mcg DAILY@0700 [facility] Administration Losartan Potassium 50 mg 10/28/18 14:02 10/29/18 11:05 Cozaar - PO Not Given DAILY [facility] Pantoprazole Sodium 40 mg 10/27/18 18:00 10/30/18 09:55 Protonix Iv IVPB 40 mg DAILY [facility] Administration Impression 1. proteinuria 2. multiple myeloma 3. failure to thrive 4. dehydration 5. htn 6. HLD 7. hypothyroidism 8. elevated PTT 9. anemia 10. hyperkalemia Plan - renal function starting to improve - losartan on hold - cont fluids - low potassium diet - monitor potassium - unable to do biopsy as ptt was elevated - will follow
[2018-10-30] MEDS: SODIUM CHLORIDE 1,000 ML IV SCH (16:45)
[2018-10-30 17:26] LABS: URINE APPEARANCE CLEAR; URINE BILIRUBIN NEGATIVE (<2.0 mg/dL); URINE COLOR LTYELLOW; URINE GLUCOSE (UA) NEGATIVE (NEGATIVE); URINE KETONE NEGATIVE (NEGATIVE); URINE LEUK ESTERASE NEGATIVE (NEGATIVE); URINE NITRITE NEGATIVE (NEGATIVE); URINE PROTEIN 3+ (NEGATIVE); URINE UROBILINOGEN NEGATIVE mg/dL (0.2-1.0)
[2018-10-30 17:40] LABS: URINE BACTERIA RARE /hpf (NONE SEEN); URINE MUCUS RARE
--- NOTE | 2018-10-30 17:48 | PN ---
Progress Note, Physician - Current Medication List Current Medications: Active Medications Allopurinol (Zyloprim -) 300 mg PO DAILY [facility] Last Admin: 10/30/18 09:55 Dose: 300 mg Atorvastatin Calcium (Lipitor -) 40 mg PO HS [facility] Last Admin: 10/29/18 21:47 Dose: 40 mg Diltiazem HCl (Cardizem Cd -) 240 mg PO DAILY [facility] Last Admin: 10/30/18 09:55 Dose: 240 mg Heparin Sodium (Porcine) (Heparin -) 5,000 unit SQ TID [facility] Last Admin: 10/30/18 14:11 Dose: 5,000 unit Sodium Chloride (Normal Saline -) 1,000 mls @ 75 mls/hr IV ASDIR [facility] Last Admin: 10/30/18 16:45 Dose: 75 mls/hr Levothyroxine Sodium (Synthroid -) 50 mcg PO DAILY@0700 [facility] Last Admin: 10/30/18 06:05 Dose: 50 mcg Pantoprazole Sodium (Protonix Iv) 40 mg IVPB DAILY [facility] Last Admin: 10/30/18 09:55 Dose: 40 mg - Objective Vital Signs: Vital Signs Temperature 99 F 10/30/18 14:00 Pulse Rate 83 10/30/18 14:00 Respiratory Rate 20 10/30/18 14:00 Blood Pressure 108/60 10/30/18 14:00 O2 Sat by Pulse Oximetry (%) 96 10/30/18 09:00 Labs: CBC, BMP 10/30/18 12:00 10/30/18 10:35 INR, PTT INR 1.18 (0.83-1.09) H 10/28/18 05:30 Fibrinogen 297.0 mg/dL (238-498) 10/28/18 05:30 Problem List - Problems (1) Nausea Code(s): R11.0 - NAUSEA (2) Troponin I above reference range Code(s): R74.8 - ABNORMAL LEVELS OF OTHER SERUM ENZYMES (3) Multiple myeloma Code(s): C90.00 - MULTIPLE MYELOMA NOT HAVING ACHIEVED REMISSION Qualifiers: Multiple myeloma remission status: unspecified Qualified Code(s): C90.00 - Multiple myeloma not having achieved remission (4) Acute on chronic renal failure Code(s): N17.9 - ACUTE KIDNEY FAILURE, UNSPECIFIED; N18.9 - CHRONIC KIDNEY DISEASE, UNSPECIFIED Qualifiers: Chronic kidney disease stage: stage 2 (mild) (5) HTN (hypertension) Code(s): I10 - ESSENTIAL (PRIMARY) HYPERTENSION (6) HLD (hyperlipidemia) Code(s): E78.5 - HYPERLIPIDEMIA, UNSPECIFIED (7) Hypothyroidism Code(s): E03.9 - HYPOTHYROIDISM, UNSPECIFIED Qualifiers: Hypothyroidism type: acquired Qualified Code(s): E03.9 - Hypothyroidism, unspecified (8) Anemia Code(s): D64.9 - ANEMIA, UNSPECIFIED Qualifiers: Chronic kidney disease stage: unspecified stage
[2018-10-30] MEDS: ATORVASTATIN CA 40 MG TABLET (FP) PO SCH (21:30)
[2018-10-31] MEDS: HEPARIN NA (PORCINE) 5,000 UNITS/ML 1ML VIAL SQ SCH ×3 (06:22→21:25)
[2018-10-31] MEDS: LEVOTHYROXINE NA 50 MCG TABLET (FP) PO SCH (06:22)
[2018-10-31] MEDS: SODIUM CHLORIDE 1,000 ML IV SCH (06:26)
[2018-10-31 07:43] LABS: BASO % 0.5 % (0-2.0); EOS % 0.3 % (0-4.5); HEMOGLOBIN 8.1 GM/dL (10.7-15.3); LYMPH % 44.1 % (8-40); MCH 32.4 pg (25.7-33.7); MEAN CELL VOLUME 92.4 fl (80-96); MEAN PLT VOLUME 8.6 fl (7.5-11.1); MONO % 12.5 % (3.8-10.2); NEUT % 42.6 % (42.8-82.8); PLATELET COUNT 108 K/MM3 (134-434); RBC 2.49 M/mm3 (3.60-5.2); RDW 16.1 % (11.6-15.6); WHITE BLOOD COUNT 2.6 K/mm3 (4.0-10.0)
[2018-10-31 08:11] LABS: ALBUMIN 1.2 g/dl (3.4-5.0); ALK PHOS 45 U/L (45-117); ANION GAP 10 MMOL/L (8-16); BILIRUBIN,TOTAL 0.2 mg/dL (0.2-1); BLOOD UREA NITROGEN 11 mg/dL (7-18); CALCIUM 8.6 mg/dL (8.5-10.1); CHLORIDE 109 mmol/L (98-107); CO2 21 mmol/L (21-32); CREATININE 0.8 mg/dL (0.55-1.3); GLUCOSE,RANDOM 85 mg/dL (74-106); POTASSIUM 3.7 mmol/L (3.5-5.1); SGOT/AST 12 U/L (15-37); SGPT/ALT 13 U/L (13-61); SODIUM 141 mmol/L (136-145); TOT PROT 7.1 g/dl (6.4-8.2)
[2018-10-31] MEDS: PANTOPRAZOLE SODIUM 40 MG VIAL IVPB SCH (09:16)
[2018-10-31] MEDS: ALLOPURINOL 300 MG TABLET (FP) PO SCH (09:16)
--- NOTE | 2018-10-31 12:26 | PN ---
Progress Note (short form) - Note Progress Note: Denies any complaints Vital Signs Period Temp Pulse Resp BP Sys/Moss Pulse Ox Last 24 Hr 98 F-99 F 83-98 18-20 108-125/60-69 96 PE: AOx3 Neck: Supple, No JVD HEENT: EOMI Lungs: CTA CVS: S1S2 Abd: Benign EXT: No edema Neuro: No focal deficit CMP Sodium 141 mmol/L (136-145) 10/31/18 06:15 Potassium 3.7 mmol/L (3.5-5.1) 10/31/18 06:15 Chloride 109 mmol/L (98-107) H 10/31/18 06:15 Carbon Dioxide 21 mmol/L (21-32) 10/31/18 06:15 Anion Gap 10 MMOL/L (8-16) 10/31/18 06:15 BUN 11 mg/dL (7-18) 10/31/18 06:15 Creatinine 0.8 mg/dL (0.55-1.3) 10/31/18 06:15 Creat Clearance w eGFR > 60 (>60) 10/31/18 06:15 Random Glucose 85 mg/dL (74-106) 10/31/18 06:15 Lactic Acid 1.7 mmol/L (0.4-2.0) 10/27/18 12:30 Uric Acid 4.0 mg/dL (2.6-7.2) 10/29/18 05:30 Calcium 8.6 mg/dL (8.5-10.1) 10/31/18 06:15 Phosphorus 3.6 mg/dL (2.5-4.9) 10/27/18 12:30 Magnesium 2.2 mg/dL (1.8-2.4) 10/27/18 12:30 Total Bilirubin 0.2 mg/dL (0.2-1) 10/31/18 06:15 AST 12 U/L (15-37) L 10/31/18 06:15 ALT 13 U/L (13-61) 10/31/18 06:15 Alkaline Phosphatase 45 U/L (45-117) 10/31/18 06:15 LD Total 158 U/L (84-246) 10/29/18 05:30 Creatine Kinase 146 IU/L (26-192) 10/30/18 10:35 Troponin I 0.23 ng/ml (0.00-0.05) H 10/30/18 10:35 Total Protein 7.1 g/dl (6.4-8.2) 10/31/18 06:15 Albumin 1.2 g/dl (3.4-5.0) L 10/31/18 06:15 TSH 25.80 uIU/ml (0.358-3.74) H 10/31/18 06:15 Free T4 0.55 ng/dl (0.76-1.46) L 10/28/18 05:30 Current Medications Generic Name Dose Route Start Last Admin Trade Name Freq PRN Reason Stop Dose Admin Allopurinol 300 mg 10/29/18 12:30 10/31/18 09:16 Zyloprim - PO 300 mg DAILY [facility] Administration Atorvastatin Calcium 40 mg 10/28/18 22:00 10/30/18 21:30 Lipitor - PO 40 mg HS [facility] Administration Diltiazem HCl 240 mg 10/28/18 10:00 10/31/18 09:16 Cardizem Cd - PO 240 mg DAILY [facility] Administration Heparin Sodium (Porcine) 5,000 unit 10/28/18 06:00 10/31/18 06:22 Heparin - SQ 5,000 unit TID [facility] Administration Sodium Chloride 1,000 mls @ 75 mls/hr 10/30/18 16:15 10/31/18 06:26 Normal Saline - IV 75 mls/hr ASDIR [facility] Administration Levothyroxine Sodium 50 mcg 10/29/18 07:00 10/31/18 06:22 Synthroid - PO 50 mcg DAILY@0700 [facility] Administration Pantoprazole Sodium 40 mg 10/27/18 18:00 10/31/18 09:16 Protonix Iv IVPB 40 mg DAILY [facility] Administration AP: Hypothyroidism: Rpt TSH 25,8 from TSH 10.1 FT4 0.55 TPO pending Unclear why TSH is higher now on increased dose of LT4 to 50. Possible absorption issue. Review of chart shows that Methimazole was not given in hospital. Continue LT4 50mcg for now, to be given at 5 AM Repeat TSH in a week if no improvement will increase dose to 75f Discussed with pt need to take LT4 in fasting state at least one hour before any food or drink in the morning. will f/u Multiple Myeloma HTN HLD Anemia
--- NOTE | 2018-10-31 13:16 | PN ---
Progress Note, Physician History of Present Illness: Pt seen and examined at bedside. She is awake and alert. She denies shortness of breath. - Current Medication List Current Medications: Active Medications Allopurinol (Zyloprim -) 300 mg PO DAILY [facility] Last Admin: 10/31/18 09:16 Dose: 300 mg Atorvastatin Calcium (Lipitor -) 40 mg PO HS [facility] Last Admin: 10/30/18 21:30 Dose: 40 mg Diltiazem HCl (Cardizem Cd -) 240 mg PO DAILY [facility] Last Admin: 10/31/18 09:16 Dose: 240 mg Heparin Sodium (Porcine) (Heparin -) 5,000 unit SQ TID [facility] Last Admin: 10/31/18 06:22 Dose: 5,000 unit Sodium Chloride (Normal Saline -) 1,000 mls @ 75 mls/hr IV ASDIR [facility] Last Admin: 10/31/18 06:26 Dose: 75 mls/hr Levothyroxine Sodium (Synthroid -) 50 mcg PO DAILY@0700 [facility] Pantoprazole Sodium (Protonix Iv) 40 mg IVPB DAILY [facility] Last Admin: 10/31/18 09:16 Dose: 40 mg - Objective Vital Signs: Vital Signs Temperature 98.6 F 10/31/18 10:00 Pulse Rate 98 H 10/31/18 10:00 Respiratory Rate 18 10/31/18 10:00 Blood Pressure 108/62 10/31/18 10:00 O2 Sat by Pulse Oximetry (%) 96 10/30/18 21:00 Constitutional: Yes: Calm Eyes: Yes: Conjunctiva Clear HENT: Yes: Atraumatic Neck: Yes: Supple Cardiovascular: Yes: S1, S2 Respiratory: Yes: CTA Bilaterally Gastrointestinal: Yes: Normal Bowel Sounds, Soft Genitourinary: Yes: WNL Musculoskeletal: Yes: WNL Edema: No Neurological: Yes: Oriented Psychiatric: Yes: Oriented Labs: CBC, BMP 10/31/18 06:15 10/31/18 06:15 INR, PTT INR 1.18 (0.83-1.09) H 10/28/18 05:30 Fibrinogen 297.0 mg/dL (238-498) 10/28/18 05:30 Problem List - Problems (1) Dehydration Code(s): E86.0 - DEHYDRATION (2) Hypothyroidism Code(s): E03.9 - HYPOTHYROIDISM, UNSPECIFIED Qualifiers: Hypothyroidism type: acquired Qualified Code(s): E03.9 - Hypothyroidism, unspecified (3) Multiple myeloma Code(s): C90.00 - MULTIPLE MYELOMA NOT HAVING ACHIEVED REMISSION Qualifiers: Multiple myeloma remission status: unspecified Qualified Code(s): C90.00 - Multiple myeloma not having achieved remission (4) Nausea Code(s): R11.0 - NAUSEA (5) Proteinuria Code(s): R80.9 - PROTEINURIA, UNSPECIFIED Assessment/Plan Current Medications Generic Name Dose Route Start Last Admin Trade Name Freq PRN Reason Stop Dose Admin Allopurinol 300 mg 10/29/18 12:30 10/31/18 09:16 Zyloprim - PO 300 mg DAILY [facility] Administration Atorvastatin Calcium 40 mg 10/28/18 22:00 10/30/18 21:30 Lipitor - PO 40 mg HS [facility] Administration Diltiazem HCl 240 mg 10/28/18 10:00 10/31/18 09:16 Cardizem Cd - PO 240 mg DAILY [facility] Administration Heparin Sodium (Porcine) 5,000 unit 10/28/18 06:00 10/31/18 06:22 Heparin - SQ 5,000 unit TID [facility] Administration Sodium Chloride 1,000 mls @ 75 mls/hr 10/30/18 16:15 10/31/18 06:26 Normal Saline - IV 75 mls/hr ASDIR [facility] Administration Levothyroxine Sodium 50 mcg 11/01/18 07:00 Synthroid - PO DAILY@0700 [facility] Pantoprazole Sodium 40 mg 10/27/18 18:00 10/31/18 09:16 Protonix Iv IVPB 40 mg DAILY [facility] Administration Impression 1. proteinuria 2. multiple myeloma 3. failure to thrive 4. dehydration 5. htn 6. HLD 7. hypothyroidism 8. elevated PTT 9. anemia 10. hyperkalemia Plan - renal function is improving - will decrease rate of fluids - potassium improved - arb on hold secondary to renal failure - potassium is improved - unable to do biopsy as ptt was elevated - will follow
[2018-10-31] MEDS ORDERED: SODIUM CHLORIDE 0.45% 1,000 ML IV SCH (13:30)
--- NOTE | 2018-10-31 19:27 | PN ---
Progress Note, Physician - Current Medication List Current Medications: Active Medications Allopurinol (Zyloprim -) 300 mg PO DAILY [facility] Last Admin: 10/31/18 09:16 Dose: 300 mg Atorvastatin Calcium (Lipitor -) 40 mg PO HS [facility] Last Admin: 10/30/18 21:30 Dose: 40 mg Diltiazem HCl (Cardizem Cd -) 240 mg PO DAILY [facility] Last Admin: 10/31/18 09:16 Dose: 240 mg Heparin Sodium (Porcine) (Heparin -) 5,000 unit SQ TID [facility] Last Admin: 10/31/18 13:52 Dose: 5,000 unit Sodium Chloride (1/2 Normal Saline) 1,000 mls @ 50 mls/hr IV ASDIR [facility] Stop: 11/01/18 13:16 Last Admin: 10/31/18 14:00 Dose: 50 mls/hr Levothyroxine Sodium (Synthroid -) 50 mcg PO DAILY@0700 [facility] Pantoprazole Sodium (Protonix Iv) 40 mg IVPB DAILY [facility] Last Admin: 10/31/18 09:16 Dose: 40 mg - Objective Vital Signs: Vital Signs Temperature 98.4 F 10/31/18 14:00 Pulse Rate 88 10/31/18 14:00 Respiratory Rate 18 10/31/18 10:00 Blood Pressure 100/53 L 10/31/18 14:00 O2 Sat by Pulse Oximetry (%) 97 10/31/18 09:00 Labs: CBC, BMP 10/31/18 06:15 10/31/18 06:15 INR, PTT INR 1.18 (0.83-1.09) H 10/28/18 05:30 Fibrinogen 297.0 mg/dL (238-498) 10/28/18 05:30 Problem List - Problems (1) Nausea Code(s): R11.0 - NAUSEA (2) Troponin I above reference range Code(s): R74.8 - ABNORMAL LEVELS OF OTHER SERUM ENZYMES (3) Multiple myeloma Code(s): C90.00 - MULTIPLE MYELOMA NOT HAVING ACHIEVED REMISSION Qualifiers: Multiple myeloma remission status: unspecified Qualified Code(s): C90.00 - Multiple myeloma not having achieved remission (4) Acute on chronic renal failure Code(s): N17.9 - ACUTE KIDNEY FAILURE, UNSPECIFIED; N18.9 - CHRONIC KIDNEY DISEASE, UNSPECIFIED Qualifiers: Chronic kidney disease stage: stage 2 (mild) (5) HTN (hypertension) Code(s): I10 - ESSENTIAL (PRIMARY) HYPERTENSION (6) HLD (hyperlipidemia) Code(s): E78.5 - HYPERLIPIDEMIA, UNSPECIFIED (7) Hypothyroidism Code(s): E03.9 - HYPOTHYROIDISM, UNSPECIFIED Qualifiers: Hypothyroidism type: acquired Qualified Code(s): E03.9 - Hypothyroidism, unspecified (8) Anemia Code(s): D64.9 - ANEMIA, UNSPECIFIED Qualifiers: Chronic kidney disease stage: unspecified stage
[2018-10-31] MEDS: ATORVASTATIN CA 40 MG TABLET (FP) PO SCH (21:25)
[2018-11-01] MEDS: LEVOTHYROXINE NA 50 MCG TABLET (FP) PO SCH (06:35)
[2018-11-01] MEDS: HEPARIN NA (PORCINE) 5,000 UNITS/ML 1ML VIAL SQ SCH ×3 (06:35→22:41)
[2018-11-01 06:44] LABS: BASO % 0.7 % (0-2.0); EOS % 0.5 % (0-4.5); HEMATOCRIT 23.8 % (32.4-45.2); LYMPH % 35.6 % (8-40); MCH 31.3 pg (25.7-33.7); MCHC 33.6 g/dl (32.0-36.0); MEAN CELL VOLUME 93.1 fl (80-96); MEAN PLT VOLUME 8.9 fl (7.5-11.1); MONO % 10.1 % (3.8-10.2); NEUT % 53.1 % (42.8-82.8); PLATELET COUNT 100 K/MM3 (134-434); RBC 2.55 M/mm3 (3.60-5.2); WHITE BLOOD COUNT 3.6 K/mm3 (4.0-10.0)
[2018-11-01 06:53] LABS: INR 1.08 (0.83-1.09); PROTHROMBIN TIME (PATIENT) 12.8 SEC (9.7-13.0)
[2018-11-01 06:56] LABS: ACTIVATED PTT 48.6 SECONDS (25.2-36.5)
[2018-11-01 07:30] LABS: ALBUMIN 1.2 g/dl (3.4-5.0); ALK PHOS 48 U/L (45-117); ANION GAP 9 MMOL/L (8-16); BILIRUBIN,TOTAL 0.3 mg/dL (0.2-1); BLOOD UREA NITROGEN 10 mg/dL (7-18); CALCIUM 8.7 mg/dL (8.5-10.1); CHLORIDE 106 mmol/L (98-107); CO2 23 mmol/L (21-32); CREATININE 0.8 mg/dL (0.55-1.3); GLUCOSE,RANDOM 92 mg/dL (74-106); POTASSIUM 3.6 mmol/L (3.5-5.1); SGOT/AST 12 U/L (15-37); SGPT/ALT 12 U/L (13-61); SODIUM 139 mmol/L (136-145); TOT PROT 7.2 g/dl (6.4-8.2)
[2018-11-01] MEDS: ALLOPURINOL 300 MG TABLET (FP) PO SCH (10:13)
[2018-11-01] MEDS: PANTOPRAZOLE SODIUM 40 MG VIAL IVPB SCH (10:13)
--- NOTE | 2018-11-01 15:26 | PN ---
Progress Note, Physician History of Present Illness: Pt seen and examined at bedside. She is awake and alert. She had a fever last night. She denies chills. - Current Medication List Current Medications: Active Medications Allopurinol (Zyloprim -) 300 mg PO DAILY [facility] Last Admin: 11/01/18 10:13 Dose: 300 mg Atorvastatin Calcium (Lipitor -) 40 mg PO HS [facility] Last Admin: 10/31/18 21:25 Dose: 40 mg Diltiazem HCl (Cardizem Cd -) 240 mg PO DAILY [facility] Last Admin: 11/01/18 10:13 Dose: 240 mg Heparin Sodium (Porcine) (Heparin -) 5,000 unit SQ TID [facility] Last Admin: 11/01/18 14:03 Dose: 5,000 unit Levothyroxine Sodium (Synthroid -) 50 mcg PO DAILY@0700 [facility] Last Admin: 11/01/18 06:35 Dose: 50 mcg Pantoprazole Sodium (Protonix Iv) 40 mg IVPB DAILY [facility] Last Admin: 11/01/18 10:13 Dose: 40 mg - Objective Vital Signs: Vital Signs Temperature 97.9 F 11/01/18 14:00 Pulse Rate 93 H 11/01/18 14:00 Respiratory Rate 18 11/01/18 05:50 Blood Pressure 110/60 11/01/18 14:00 O2 Sat by Pulse Oximetry (%) 97 10/31/18 20:36 Constitutional: Yes: Calm Eyes: Yes: Conjunctiva Clear HENT: Yes: Atraumatic Cardiovascular: Yes: S1, S2 Respiratory: Yes: CTA Bilaterally Gastrointestinal: Yes: Normal Bowel Sounds, Soft Genitourinary: Yes: WNL Musculoskeletal: Yes: WNL Extremities: Yes: WNL Edema: No Neurological: Yes: Oriented Psychiatric: Yes: Oriented Labs: CBC, BMP 11/01/18 05:30 11/01/18 05:30 INR, PTT INR 1.08 (0.83-1.09) 11/01/18 05:30 Fibrinogen 367.0 mg/dL (238-498) D 11/01/18 05:30 Problem List - Problems (1) Dehydration Code(s): E86.0 - DEHYDRATION (2) Hypothyroidism Code(s): E03.9 - HYPOTHYROIDISM, UNSPECIFIED Qualifiers: Hypothyroidism type: acquired Qualified Code(s): E03.9 - Hypothyroidism, unspecified (3) Multiple myeloma Code(s): C90.00 - MULTIPLE MYELOMA NOT HAVING ACHIEVED REMISSION Qualifiers: Multiple myeloma remission status: unspecified Qualified Code(s): C90.00 - Multiple myeloma not having achieved remission (4) Nausea Code(s): R11.0 - NAUSEA (5) Proteinuria Code(s): R80.9 - PROTEINURIA, UNSPECIFIED Assessment/Plan Current Medications Generic Name Dose Route Start Last Admin Trade Name Freq PRN Reason Stop Dose Admin Allopurinol 300 mg 10/29/18 12:30 11/01/18 10:13 Zyloprim - PO 300 mg DAILY [facility] Administration Atorvastatin Calcium 40 mg 10/28/18 22:00 10/31/18 21:25 Lipitor - PO 40 mg HS [facility] Administration Diltiazem HCl 240 mg 10/28/18 10:00 11/01/18 10:13 Cardizem Cd - PO 240 mg DAILY [facility] Administration Heparin Sodium (Porcine) 5,000 unit 10/28/18 06:00 11/01/18 14:03 Heparin - SQ 5,000 unit TID [facility] Administration Levothyroxine Sodium 50 mcg 11/01/18 07:00 11/01/18 06:35 Synthroid - PO 50 mcg DAILY@0700 [facility] Administration Pantoprazole Sodium 40 mg 10/27/18 18:00 11/01/18 10:13 Protonix Iv IVPB 40 mg DAILY [facility] Administration Impression 1. proteinuria 2. multiple myeloma 3. failure to thrive 4. dehydration 5. htn 6. HLD 7. hypothyroidism 8. elevated PTT 9. anemia 10. hyperkalemia Plan - cont to monitor renal function - renal function is stable - pt tolerating diet - fluids on hold for now - arb on hold secondary to renal failure - potassium is improved - unable to do biopsy as ptt was elevated - will follow
--- NOTE | 2018-11-01 17:44 | PN ---
Progress Note (short form) - Note Progress Note: ID CONSULT DICTATED LOW GRADE TEMP LEUKOPENIA ANC 1.9 MYELOMA PCN ALLERGY WILL REPEAT BC IF RECURRENT TEMP WILL START EMPIRIC ANTIBIOTIC THERAPY
--- NOTE | 2018-11-01 17:55 | PN ---
Progress Note, Physician - Current Medication List Current Medications: Active Medications Allopurinol (Zyloprim -) 300 mg PO DAILY [facility] Last Admin: 11/01/18 10:13 Dose: 300 mg Atorvastatin Calcium (Lipitor -) 40 mg PO HS [facility] Last Admin: 10/31/18 21:25 Dose: 40 mg Diltiazem HCl (Cardizem Cd -) 240 mg PO DAILY [facility] Last Admin: 11/01/18 10:13 Dose: 240 mg Heparin Sodium (Porcine) (Heparin -) 5,000 unit SQ TID [facility] Last Admin: 11/01/18 14:03 Dose: 5,000 unit Levothyroxine Sodium (Synthroid -) 50 mcg PO DAILY@0700 [facility] Last Admin: 11/01/18 06:35 Dose: 50 mcg Pantoprazole Sodium (Protonix Iv) 40 mg IVPB DAILY [facility] Last Admin: 11/01/18 10:13 Dose: 40 mg - Objective Vital Signs: Vital Signs Temperature 97.9 F 11/01/18 14:00 Pulse Rate 93 H 11/01/18 14:00 Respiratory Rate 18 11/01/18 10:00 Blood Pressure 110/60 11/01/18 14:00 O2 Sat by Pulse Oximetry (%) 97 11/01/18 09:00 Labs: CBC, BMP 11/01/18 05:30 11/01/18 05:30 INR, PTT INR 1.08 (0.83-1.09) 11/01/18 05:30 Fibrinogen 367.0 mg/dL (238-498) D 11/01/18 05:30 Problem List - Problems (1) Nausea Code(s): R11.0 - NAUSEA (2) Troponin I above reference range Code(s): R74.8 - ABNORMAL LEVELS OF OTHER SERUM ENZYMES (3) Multiple myeloma Code(s): C90.00 - MULTIPLE MYELOMA NOT HAVING ACHIEVED REMISSION Qualifiers: Multiple myeloma remission status: unspecified Qualified Code(s): C90.00 - Multiple myeloma not having achieved remission (4) Acute on chronic renal failure Code(s): N17.9 - ACUTE KIDNEY FAILURE, UNSPECIFIED; N18.9 - CHRONIC KIDNEY DISEASE, UNSPECIFIED Qualifiers: Chronic kidney disease stage: stage 2 (mild) (5) HTN (hypertension) Code(s): I10 - ESSENTIAL (PRIMARY) HYPERTENSION (6) HLD (hyperlipidemia) Code(s): E78.5 - HYPERLIPIDEMIA, UNSPECIFIED (7) Hypothyroidism Code(s): E03.9 - HYPOTHYROIDISM, UNSPECIFIED Qualifiers: Hypothyroidism type: acquired Qualified Code(s): E03.9 - Hypothyroidism, unspecified (8) Anemia Code(s): D64.9 - ANEMIA, UNSPECIFIED Qualifiers: Chronic kidney disease stage: unspecified stage
--- NOTE | 2018-11-01 18:13 | PN ---
Progress Note (short form) - Note Progress Note: Patient seen in follow up. No new complaints. No significant events overnight. Inpatient Meds reviewed. Current Medications Generic Name Dose Route Start Last Admin Trade Name Edgar PRN Reason Stop Dose Admin Allopurinol 300 mg 10/29/18 12:30 11/01/18 10:13 Zyloprim - PO 300 mg DAILY [facility] Administration Atorvastatin Calcium 40 mg 10/28/18 22:00 10/31/18 21:25 Lipitor - PO 40 mg HS [facility] Administration Diltiazem HCl 240 mg 10/28/18 10:00 11/01/18 10:13 Cardizem Cd - PO 240 mg DAILY [facility] Administration Heparin Sodium (Porcine) 5,000 unit 10/28/18 06:00 11/01/18 14:03 Heparin - SQ 5,000 unit TID [facility] Administration Levothyroxine Sodium 50 mcg 11/01/18 07:00 11/01/18 06:35 Synthroid - PO 50 mcg DAILY@0700 [facility] Administration Pantoprazole Sodium 40 mg 10/27/18 18:00 11/01/18 10:13 Protonix Iv IVPB 40 mg DAILY [facility] Administration On Examination: Vital Signs Temperature 98.4 F 10/31/18 14:00 Pulse Rate 88 10/31/18 14:00 Respiratory Rate 18 10/31/18 10:00 Blood Pressure 100/53 L 10/31/18 14:00 O2 Sat by Pulse Oximetry (%) 97 10/31/18 09:00 General: In no acute distress, lying comfortably in bed. Extremities: No pallor or icterus. No pedal edema. No palpable lymphadenopathy. Chest: breathing comfortably Abdomen: Non-distended, non-tender, no palpable organomegaly. Neuro: Alert, oriented, non-focal. Labs: Hb 8.1 Plt 108 Creat 0.8 Assessment. IgA myeloma, with anemia and proteinuria (normal creatinine). Untreated previously. Started treatment with Velcade/Dex - 1st dose on 10/14. Mild coagulapathy - possible factor X/amyloid related - holding off on renal biopsy pending resolution - improving
--- NOTE | 2018-11-01 18:20 | CONS ---
DATE OF CONSULTATION: DATE OF DICTATION: 11/01/2018 INFECTIOUS DISEASE CONSULTATION HISTORY OF PRESENT ILLNESS: The patient is a 73-year-old female with a history of multiple myeloma who is evaluated for low-grade fever. She was admitted to the hospital on October 27, 2018, with nausea and vomiting for 1 day after her 3rd cycle of chemotherapy. Her course in the emergency room was significant for hypotension. She was given IV fluid hydration. Patient was admitted to the floor, where her course has now been complicated by low-grade fever 100.6. She is leukopenic with an absolute neutrophil count of 1.9. At the present time, she has no focal complaint. She felt feverish during the night, however denies shaking chills. She has no focal complaint. She denies any chest pain, shortness of breath, cough or sputum production. No recurrent vomiting. No diarrhea. No complaints of dysuria or hematuria. Cultures obtained on admission are negative. Chest x-ray also negative. PAST MEDICAL HISTORY: Positive for multiple myeloma, IGA diagnosed approximately 4 years ago. She is currently on Velcade and dexamethasone. Her last dose was prior to admission. Past medical history also includes hypertension, asthma. PAST SURGICAL HISTORY: Status post hysterectomy, tubal ligation. ALLERGIES: PENICILLIN. Patient reports rash with PENICILLIN. She had tolerated cephalosporins in the past. HOME MEDICATIONS: Include omeprazole, astemizole, losartan, Synthroid, gabapentin, Pepcid, Cardizem, Lipitor. SOCIAL HISTORY: Lives at home in the community. She is a former smoker. Denies any ill contacts. Reports receiving influenza and pneumococcal vaccines. SYSTEMS REVIEW: Neurologic: No loss of consciousness, seizure activity, focal weakness. Cardiac: Negative for chest pain or palpitations. Respiratory: Negative for cough or sputum production. Gastrointestinal: Positive for vomiting, no diarrhea. Genitourinary: Negative for urinary tract infection. LABORATORY DATA: White count 3.6, with 53 neutrophils, 35 lymphocytes, 10 monocytes. Hematocrit 23.8, platelet count 100, creatinine 0.8. Urinalysis less than 1 white cell. Chest x-ray negative. PHYSICAL EXAMINATION: General: On exam, she is supine in bed. She is in no acute distress. Not acutely toxic appearing. Vital signs: Temperature 100.6, blood pressure 140/71, pulse 94 regular, respirations 18 per minute. HEENT: Sclerae anicteric. Cardiovascular: Heart sounds S1, S2. Lungs: A few rhonchi bilaterally, no rales or wheezing. Abdomen: Soft, no tenderness elicited. Extremities: Negative for edema. IMPRESSION: 1. Low-grade fever. 2. Neutropenia with absolute neutrophil count 1.9. 3. Myeloma. 4. PENICILLIN allergy. Patient without focal complaint and not acutely toxic appearing will repeat blood cultures and observe should she have recurrent fever will empirically start antibiotic therapy. Will follow. Thank you for the kind referral. ALVAREZ LAMBERT M.D. [id number]
--- NOTE | 2018-11-01 18:23 | PN ---
Progress Note (short form) - Note Progress Note: Patient seen and examined Feels well Last Vital Signs Temp Pulse Resp BP Pulse Ox 97.9 F 93 H 18 110/60 97 11/01/18 14:00 11/01/18 14:00 11/01/18 10:00 11/01/18 14:00 11/01/18 09:00 Cor: RSR, No murmurs, No gallops Lungs: Clear to P&A Abd: Soft, Normal bowel sounds, No organomegaly Ext:No significant edema Abnormal Lab Results 11/01/18 11/01/18 11/01/18 05:30 05:30 05:30 WBC 3.6 L RBC 2.55 L Hgb 8.0 L Hct 23.8 L RDW 16.0 H Plt Count 100 L PTT (Actin FS) 48.6 H AST 12 L ALT 12 L Albumin 1.2 L Crossmatch 11/01/18 13:55 WBC RBC Hgb Hct RDW Plt Count PTT (Actin FS) AST ALT Albumin Crossmatch See Detail Active Medications Generic Name Dose Route Start Last Admin Trade Name Edgar PRN Reason Stop Dose Admin Allopurinol 300 mg 10/29/18 12:30 11/01/18 10:13 Zyloprim - PO 300 mg DAILY [facility] Administration Atorvastatin Calcium 40 mg 10/28/18 22:00 10/31/18 21:25 Lipitor - PO 40 mg HS [facility] Administration Diltiazem HCl 240 mg 10/28/18 10:00 11/01/18 10:13 Cardizem Cd - PO 240 mg DAILY [facility] Administration Heparin Sodium (Porcine) 5,000 unit 10/28/18 06:00 11/01/18 14:03 Heparin - SQ 5,000 unit TID [facility] Administration Levothyroxine Sodium 50 mcg 11/01/18 07:00 11/01/18 06:35 Synthroid - PO 50 mcg DAILY@0700 [facility] Administration Pantoprazole Sodium 40 mg 10/27/18 18:00 11/01/18 10:13 Protonix Iv IVPB 40 mg DAILY [facility] Administration A/P 73 y/o patient with myeloma/? amyloid, on velcade/cytoxan/dexamethasone a/w vomiting/hypotension dose no.3 velcade and dose no.1 cytoxan on 10/27 Low grade temps/immunosuppressed/very low IgG levels -- will request ID consult continue supportive care
[2018-11-01] MEDS: ATORVASTATIN CA 40 MG TABLET (FP) PO SCH (22:41)
[2018-11-01] MEDS: valACYclovir HCL 500 MG TABLET (FP) PO SCH (22:41)
[2018-11-02] MEDS: ACETAMINOPHEN 325 MG TABLET (FP) PO PRN ×2 (01:15→22:53)
[2018-11-02] MEDS: HEPARIN NA (PORCINE) 5,000 UNITS/ML 1ML VIAL SQ SCH ×3 (06:14→22:53)
[2018-11-02] MEDS: LEVOTHYROXINE NA 50 MCG TABLET (FP) PO SCH (06:14)
[2018-11-02 07:43] LABS: BASO % 0.3 % (0-2.0); EOS % 0.3 % (0-4.5); HEMATOCRIT 26.1 % (32.4-45.2); HEMOGLOBIN 8.6 GM/dL (10.7-15.3); LYMPH % 27.5 % (8-40); MCH 30.2 pg (25.7-33.7); MCHC 33.1 g/dl (32.0-36.0); MEAN CELL VOLUME 91.2 fl (80-96); MEAN PLT VOLUME 8.7 fl (7.5-11.1); NEUT % 61.9 % (42.8-82.8); PLATELET COUNT 100 K/MM3 (134-434); RBC 2.86 M/mm3 (3.60-5.2); RDW 16.3 % (11.6-15.6); WHITE BLOOD COUNT 4.8 K/mm3 (4.0-10.0)
[2018-11-02 08:23] LABS: ALBUMIN 1.2 g/dl (3.4-5.0); ALK PHOS 50 U/L (45-117); ANION GAP 9 MMOL/L (8-16); BILIRUBIN,TOTAL 0.4 mg/dL (0.2-1); BLOOD UREA NITROGEN 11 mg/dL (7-18); CALCIUM 8.7 mg/dL (8.5-10.1); CHLORIDE 105 mmol/L (98-107); CO2 24 mmol/L (21-32); CREATININE 0.8 mg/dL (0.55-1.3); GLUCOSE,RANDOM 88 mg/dL (74-106); POTASSIUM 3.8 mmol/L (3.5-5.1); SGOT/AST 12 U/L (15-37); SGPT/ALT 10 U/L (13-61); SODIUM 139 mmol/L (136-145); TOT PROT 7.1 g/dl (6.4-8.2)
[2018-11-02] MEDS ORDERED: PT OWN MED DRAWER 7, Y5N ONE (08:57)
[2018-11-02] MEDS: ALLOPURINOL 300 MG TABLET (FP) PO SCH (08:59)
[2018-11-02] MEDS: ATOVAQUONE 750 MG/5 ML (UNIT-DOSE PACKAGING) PO SCH (08:59)
[2018-11-02] MEDS: valACYclovir HCL 500 MG TABLET (FP) PO SCH (09:00)
[2018-11-02] MEDS: PANTOPRAZOLE SODIUM 40 MG VIAL IVPB SCH (09:35)
--- NOTE | 2018-11-02 10:32 | PN ---
Progress Note, Physician Chief Complaint: Pt A&Ox3; denies chest pain or dyspnea; feels weak. History of Present Illness: The patient is a 73 year old black female, with a significant PMH of multiple myeloma (diagnosed 4 years ago, on chemo weekly, followed by Dr. Stuart), HTN, HLD, and hypothyroidism, who presents to the emergency department today complaining of nausea for 1 day. Patient notes she began feeling nauseous, without vomit, following her 3rd chemotherapy treatment. Patient denies abdominal pain. Patient was brought to the ED as per request of Dr. Stuart for admission as pt was too ill to get chemo today. - Current Medication List Current Medications: Active Medications Acetaminophen (Tylenol -) 650 mg PO Q6H PRN PRN Reason: FEVER Last Admin: 11/02/18 01:15 Dose: 650 mg Allopurinol (Zyloprim -) 300 mg PO DAILY [facility] Last Admin: 11/02/18 08:59 Dose: 300 mg Atorvastatin Calcium (Lipitor -) 40 mg PO HS [facility] Last Admin: 11/01/18 22:41 Dose: 40 mg Atovaquone (Mepron -) 1,500 mg PO DAILY@0800 [facility] Last Admin: 11/02/18 08:59 Dose: 1,500 mg Diltiazem HCl (Cardizem Cd -) 240 mg PO DAILY [facility] Last Admin: 11/02/18 08:59 Dose: 240 mg Heparin Sodium (Porcine) (Heparin -) 5,000 unit SQ TID [facility] Last Admin: 11/02/18 06:14 Dose: 5,000 unit Levothyroxine Sodium (Synthroid -) 50 mcg PO DAILY@0700 [facility] Last Admin: 11/02/18 06:14 Dose: 50 mcg Pantoprazole Sodium (Protonix Iv) 40 mg IVPB DAILY [facility] Last Admin: 11/02/18 09:35 Dose: 40 mg Valacyclovir HCl (Valtrex -) 500 mg PO DAILY [facility] Last Admin: 11/02/18 09:00 Dose: 500 mg - Objective Vital Signs: Vital Signs Temperature 98.2 F 11/02/18 06:00 Pulse Rate 92 H 11/02/18 06:00 Respiratory Rate 18 11/02/18 06:00 Blood Pressure 124/67 11/02/18 06:00 O2 Sat by Pulse Oximetry (%) 93 L 11/01/18 21:00 Constitutional: Yes: Calm Eyes: Yes: WNL HENT: Yes: WNL Neck: Yes: WNL Cardiovascular: Yes: WNL Respiratory: Yes: WNL Gastrointestinal: Yes: Soft ...Rectal Exam: Yes: Deferred Genitourinary: No: Anuria Breast(s): Yes: WNL Musculoskeletal: Yes: Muscle Weakness Extremities: Yes: Cool Edema: Yes Edema: LLE: 1+, RLE: 1+ Peripheral Pulses WNL: Yes Integumentary: Yes: WNL Neurological: Yes: Alert, Oriented, Weakness Psychiatric: Yes: WNL Labs: CBC, BMP 11/02/18 06:53 11/02/18 06:53 INR, PTT INR 1.08 (0.83-1.09) 11/01/18 05:30 Fibrinogen 367.0 mg/dL (238-498) D 11/01/18 05:30 Abnormal Lab Results 11/02/18 11/02/18 06:53 06:53 RBC 2.86 L Hgb 8.6 L Hct 26.1 L RDW 16.3 H Plt Count 100 L AST 12 L ALT 10 L Albumin 1.2 L - ....Imaging Chest X-ray: Image Reviewed (no acute pathology) EKG: Image Reviewed Other: Report Reviewed (stress Lexiscan MIBI: no ischemia) Problem List - Problems (1) Anemia Code(s): D64.9 - ANEMIA, UNSPECIFIED (2) HLD (hyperlipidemia) Code(s): E78.5 - HYPERLIPIDEMIA, UNSPECIFIED (3) HTN (hypertension) Code(s): I10 - ESSENTIAL (PRIMARY) HYPERTENSION (4) Hypothyroidism Code(s): E03.9 - HYPOTHYROIDISM, UNSPECIFIED Qualifiers: Hypothyroidism type: acquired Qualified Code(s): E03.9 - Hypothyroidism, unspecified (5) Multiple myeloma Code(s): C90.00 - MULTIPLE MYELOMA NOT HAVING ACHIEVED REMISSION Qualifiers: Multiple myeloma remission status: unspecified Qualified Code(s): C90.00 - Multiple myeloma not having achieved remission (6) Elevated troponin Assessment/Plan: mild elevation likely due to demand ischemia, with multiple contributing factors , including systemic hematologic/oncologic process, anemia, CHF Stress Lexiscan MIBI negative for ischemia. Code(s): R74.8 - ABNORMAL LEVELS OF OTHER SERUM ENZYMES (7) Renal dysfunction Assessment/Plan: Increasing BUN/Cr. Avoid dehydration; IV and PO fluids. Code(s): N28.9 - DISORDER OF KIDNEY AND URETER, UNSPECIFIED
[2018-11-02] MEDS ORDERED: CEFEPIME HCL 1 GM VIAL (RESTRICTED TO ID) ONE ×2 (11:52→16:55)
[2018-11-02] MEDS ORDERED: DEXTROSE 5%-WATER 100 ML IVPB ONE ×2 (11:52→16:55)
[2018-11-02] MEDS: CEFEPIME 1 GM in DEXTROSE 5%-WATER 100 ML IVPB SCH ×2 (11:55→17:02)
[2018-11-02] MEDS: VANCOMYCIN 1 GRAM (PRE-DOCKED) 1,000 MG/250 ML BAG IVPB SCH ×2 (11:55→22:53)
--- NOTE | 2018-11-02 14:14 | PN ---
Progress Note, Physician History of Present Illness: Pt seen and examined at bedside. She is awake and alert. She denies shortness of breath. - Current Medication List Current Medications: Active Medications Acetaminophen (Tylenol -) 650 mg PO Q6H PRN PRN Reason: FEVER Last Admin: 11/02/18 01:15 Dose: 650 mg Allopurinol (Zyloprim -) 300 mg PO DAILY [facility] Last Admin: 11/02/18 08:59 Dose: 300 mg Atorvastatin Calcium (Lipitor -) 40 mg PO HS [facility] Last Admin: 11/01/18 22:41 Dose: 40 mg Atovaquone (Mepron -) 1,500 mg PO DAILY@0800 [facility] Last Admin: 11/02/18 08:59 Dose: 1,500 mg Diltiazem HCl (Cardizem Cd -) 240 mg PO DAILY [facility] Last Admin: 11/02/18 08:59 Dose: 240 mg Heparin Sodium (Porcine) (Heparin -) 5,000 unit SQ TID [facility] Last Admin: 11/02/18 13:35 Dose: 5,000 unit Vancomycin HCl (Vancomycin (Pre-Docked)) 1,000 mg in 250 mls @ 166.667 mls/hr IVPB Q12H [facility]; Protocol Last Admin: 11/02/18 11:55 Dose: 166.667 mls/hr Cefepime HCl 1 gm/ Dextrose 100 mls @ 200 mls/hr IVPB Q8H-IV [facility]; Protocol Last Admin: 11/02/18 11:55 Dose: 200 mls/hr Levothyroxine Sodium (Synthroid -) 50 mcg PO DAILY@0700 [facility] Last Admin: 11/02/18 06:14 Dose: 50 mcg Pantoprazole Sodium (Protonix Iv) 40 mg IVPB DAILY [facility] Last Admin: 11/02/18 09:35 Dose: 40 mg Valacyclovir HCl (Valtrex -) 500 mg PO DAILY [facility] Last Admin: 11/02/18 09:00 Dose: 500 mg - Objective Vital Signs: Vital Signs Temperature 99.0 F 11/02/18 13:24 Pulse Rate 88 11/02/18 13:24 Respiratory Rate 18 11/02/18 13:24 Blood Pressure 108/59 L 11/02/18 13:24 O2 Sat by Pulse Oximetry (%) 93 L 11/01/18 21:00 Constitutional: Yes: Calm Eyes: Yes: Conjunctiva Clear HENT: Yes: Atraumatic Cardiovascular: Yes: S1, S2 Respiratory: Yes: CTA Bilaterally Gastrointestinal: Yes: Soft Genitourinary: Yes: WNL Musculoskeletal: Yes: WNL Edema: No Neurological: Yes: Oriented Psychiatric: Yes: Oriented Labs: CBC, BMP 11/02/18 06:53 11/02/18 06:53 INR, PTT INR 1.08 (0.83-1.09) 11/01/18 05:30 Fibrinogen 367.0 mg/dL (238-498) D 11/01/18 05:30 Problem List - Problems (1) Dehydration Code(s): E86.0 - DEHYDRATION (2) Hypothyroidism Code(s): E03.9 - HYPOTHYROIDISM, UNSPECIFIED Qualifiers: Hypothyroidism type: acquired Qualified Code(s): E03.9 - Hypothyroidism, unspecified (3) Multiple myeloma Code(s): C90.00 - MULTIPLE MYELOMA NOT HAVING ACHIEVED REMISSION Qualifiers: Multiple myeloma remission status: unspecified Qualified Code(s): C90.00 - Multiple myeloma not having achieved remission (4) Nausea Code(s): R11.0 - NAUSEA (5) Proteinuria Code(s): R80.9 - PROTEINURIA, UNSPECIFIED Assessment/Plan Current Medications Generic Name Dose Route Start Last Admin Trade Name Freq PRN Reason Stop Dose Admin Acetaminophen 650 mg 11/02/18 02:34 11/02/18 01:15 Tylenol - PO 650 mg Q6H PRN Administration FEVER Allopurinol 300 mg 10/29/18 12:30 11/02/18 08:59 Zyloprim - PO 300 mg DAILY [facility] Administration Atorvastatin Calcium 40 mg 10/28/18 22:00 11/01/18 22:41 Lipitor - PO 40 mg HS [facility] Administration Atovaquone 1,500 mg 11/02/18 08:00 11/02/18 08:59 Mepron - PO 1,500 mg DAILY@0800 [facility] Administration Diltiazem HCl 240 mg 10/28/18 10:00 11/02/18 08:59 Cardizem Cd - PO 240 mg DAILY [facility] Administration Heparin Sodium (Porcine) 5,000 unit 10/28/18 06:00 11/02/18 13:35 Heparin - SQ 5,000 unit TID [facility] Administration Vancomycin HCl 1,000 mg in 250 mls @ 166.667 mls/hr 11/02/18 11:30 11/02/18 11:55 Vancomycin (Pre-Docked) IVPB 166.667 mls/hr Q12H [facility] Administration Protocol Cefepime HCl 1 gm/ Dextrose 100 mls @ 200 mls/hr 11/02/18 11:15 11/02/18 11: 55 IVPB 200 mls/hr Q8H-IV [facility] Administration Protocol Levothyroxine Sodium 50 mcg 11/01/18 07:00 11/02/18 06:14 Synthroid - PO 50 mcg DAILY@0700 [facility] Administration Pantoprazole Sodium 40 mg 10/27/18 18:00 11/02/18 09:35 Protonix Iv IVPB 40 mg DAILY [facility] Administration Valacyclovir HCl 500 mg 11/01/18 19:45 11/02/18 09:00 Valtrex - PO 500 mg DAILY [facility] Administration Impression 1. proteinuria 2. multiple myeloma 3. failure to thrive 4. dehydration 5. htn 6. HLD 7. hypothyroidism 8. elevated PTT 9. anemia 10. hyperkalemia Plan - renal function stable - avoid nsaids - pt tolerating diet - fluids of she is not eating - arb on hold - potassium is improved - will follow
--- NOTE | 2018-11-02 14:26 | PN ---
Progress Note, Physician History of Present Illness: Recurrent temp overnight 101.3 No focal complaint No chills Cultures obtained WBC improved 4.8 ANC 3 - Current Medication List Current Medications: Active Medications Acetaminophen (Tylenol -) 650 mg PO Q6H PRN PRN Reason: FEVER Last Admin: 11/02/18 01:15 Dose: 650 mg Allopurinol (Zyloprim -) 300 mg PO DAILY [facility] Last Admin: 11/02/18 08:59 Dose: 300 mg Atorvastatin Calcium (Lipitor -) 40 mg PO HS [facility] Last Admin: 11/01/18 22:41 Dose: 40 mg Atovaquone (Mepron -) 1,500 mg PO DAILY@0800 [facility] Last Admin: 11/02/18 08:59 Dose: 1,500 mg Diltiazem HCl (Cardizem Cd -) 240 mg PO DAILY [facility] Last Admin: 11/02/18 08:59 Dose: 240 mg Heparin Sodium (Porcine) (Heparin -) 5,000 unit SQ TID [facility] Last Admin: 11/02/18 13:35 Dose: 5,000 unit Vancomycin HCl (Vancomycin (Pre-Docked)) 1,000 mg in 250 mls @ 166.667 mls/hr IVPB Q12H [facility]; Protocol Last Admin: 11/02/18 11:55 Dose: 166.667 mls/hr Cefepime HCl 1 gm/ Dextrose 100 mls @ 200 mls/hr IVPB Q8H-IV [facility]; Protocol Last Admin: 11/02/18 11:55 Dose: 200 mls/hr Levothyroxine Sodium (Synthroid -) 50 mcg PO DAILY@0700 [facility] Last Admin: 11/02/18 06:14 Dose: 50 mcg Pantoprazole Sodium (Protonix Iv) 40 mg IVPB DAILY [facility] Last Admin: 11/02/18 09:35 Dose: 40 mg Valacyclovir HCl (Valtrex -) 500 mg PO DAILY [facility] Last Admin: 11/02/18 09:00 Dose: 500 mg - Objective Vital Signs: Vital Signs Temperature 99.0 F 11/02/18 13:24 Pulse Rate 88 11/02/18 13:24 Respiratory Rate 18 11/02/18 13:24 Blood Pressure 108/59 L 11/02/18 13:24 O2 Sat by Pulse Oximetry (%) 93 L 11/01/18 21:00 Constitutional: Yes: No Distress Eyes: Yes: Conjunctiva Clear Cardiovascular: Yes: Regular Rate and Rhythm, S1, S2 Respiratory: Yes: CTA Bilaterally Gastrointestinal: Yes: Normal Bowel Sounds, Soft. No: Tenderness Edema: Yes Labs: CBC, BMP 11/02/18 06:53 11/02/18 06:53 INR, PTT INR 1.08 (0.83-1.09) 11/01/18 05:30 Fibrinogen 367.0 mg/dL (238-498) D 11/01/18 05:30 Assessment/Plan Fever ? source Leukopenia/ neutropenia Hx Myeloma PCN allergy Cultures obtained Empiric vancomycin/ cefepime stated
--- NOTE | 2018-11-02 16:01 | PN ---
Progress Note, Physician History of Present Illness: Pt spiking temps - Current Medication List Current Medications: Active Medications Acetaminophen (Tylenol -) 650 mg PO Q6H PRN PRN Reason: FEVER Last Admin: 11/02/18 01:15 Dose: 650 mg Allopurinol (Zyloprim -) 300 mg PO DAILY [facility] Last Admin: 11/02/18 08:59 Dose: 300 mg Atorvastatin Calcium (Lipitor -) 40 mg PO HS [facility] Last Admin: 11/01/18 22:41 Dose: 40 mg Atovaquone (Mepron -) 1,500 mg PO DAILY@0800 [facility] Last Admin: 11/02/18 08:59 Dose: 1,500 mg Diltiazem HCl (Cardizem Cd -) 240 mg PO DAILY [facility] Last Admin: 11/02/18 08:59 Dose: 240 mg Heparin Sodium (Porcine) (Heparin -) 5,000 unit SQ TID [facility] Last Admin: 11/02/18 13:35 Dose: 5,000 unit Vancomycin HCl (Vancomycin (Pre-Docked)) 1,000 mg in 250 mls @ 166.667 mls/hr IVPB Q12H [facility]; Protocol Last Admin: 11/02/18 11:55 Dose: 166.667 mls/hr Cefepime HCl 1 gm/ Dextrose 100 mls @ 200 mls/hr IVPB Q8H-IV [facility]; Protocol Last Admin: 11/02/18 11:55 Dose: 200 mls/hr Levothyroxine Sodium (Synthroid -) 50 mcg PO DAILY@0700 [facility] Last Admin: 11/02/18 06:14 Dose: 50 mcg Pantoprazole Sodium (Protonix Iv) 40 mg IVPB DAILY [facility] Last Admin: 11/02/18 09:35 Dose: 40 mg Valacyclovir HCl (Valtrex -) 500 mg PO DAILY [facility] Last Admin: 11/02/18 09:00 Dose: 500 mg - Objective Vital Signs: Vital Signs Temperature 99.0 F 11/02/18 13:24 Pulse Rate 88 11/02/18 13:24 Respiratory Rate 18 11/02/18 13:24 Blood Pressure 108/59 L 11/02/18 13:24 O2 Sat by Pulse Oximetry (%) 93 L 11/01/18 21:00 Neck: Yes: WNL, Supple Cardiovascular: Yes: WNL, Regular Rate and Rhythm Respiratory: Yes: WNL, Regular, CTA Bilaterally Gastrointestinal: Yes: WNL, Normal Bowel Sounds, Soft Labs: CBC, BMP 11/02/18 06:53 11/02/18 06:53 INR, PTT INR 1.08 (0.83-1.09) 11/01/18 05:30 Fibrinogen 367.0 mg/dL (238-498) D 11/01/18 05:30 Problem List - Problems (1) Fever Assessment/Plan: ?Transfusion related Follow cultures COnt cefepime/vanco WBC is normal Code(s): R50.9 - FEVER, UNSPECIFIED (2) Multiple myeloma Assessment/Plan: Chemotx to be given tomorrow As per onco Code(s): C90.00 - MULTIPLE MYELOMA NOT HAVING ACHIEVED REMISSION Qualifiers: Multiple myeloma remission status: unspecified Qualified Code(s): C90.00 - Multiple myeloma not having achieved remission (3) Nausea Assessment/Plan: Multifactorial Due to chemotx Code(s): R11.0 - NAUSEA (4) Acute on chronic renal failure Assessment/Plan: As per renal Monitor labs Pt unable to get renal bx due to elevated PTT Code(s): N17.9 - ACUTE KIDNEY FAILURE, UNSPECIFIED; N18.9 - CHRONIC KIDNEY DISEASE, UNSPECIFIED Qualifiers: Chronic kidney disease stage: stage 2 (mild) (5) HTN (hypertension) Assessment/Plan: Cont to monitor BP Code(s): I10 - ESSENTIAL (PRIMARY) HYPERTENSION (6) HLD (hyperlipidemia) Assessment/Plan: Cont lipitor Code(s): E78.5 - HYPERLIPIDEMIA, UNSPECIFIED (7) Hypothyroidism Assessment/Plan: Cont levothyroxine Code(s): E03.9 - HYPOTHYROIDISM, UNSPECIFIED Qualifiers: Hypothyroidism type: acquired Qualified Code(s): E03.9 - Hypothyroidism, unspecified (8) Anemia Assessment/Plan: S/P transfusion 1 unit PRBC's H/H remained stable today Multifactorial Code(s): D64.9 - ANEMIA, UNSPECIFIED Qualifiers: Chronic kidney disease stage: unspecified stage (9) Troponin I above reference range Code(s): R74.8 - ABNORMAL LEVELS OF OTHER SERUM ENZYMES
--- NOTE | 2018-11-02 18:08 | PN ---
Progress Note (short form) - Note Progress Note: Patient seen in follow up. No new complaints. Fever early hours of this morning - shortly after red cell transfusion. Was asymptomatic. Started on empiric Abics. Inpatient Meds reviewed. Current Medications Generic Name Dose Route Start Last Admin Trade Name Freq PRN Reason Stop Dose Admin Acetaminophen 650 mg 11/02/18 02:34 11/02/18 01:15 Tylenol - PO 650 mg Q6H PRN Administration FEVER Allopurinol 300 mg 10/29/18 12:30 11/02/18 08:59 Zyloprim - PO 300 mg DAILY [facility] Administration Atorvastatin Calcium 40 mg 10/28/18 22:00 11/01/18 22:41 Lipitor - PO 40 mg HS [facility] Administration Atovaquone 1,500 mg 11/02/18 08:00 11/02/18 08:59 Mepron - PO 1,500 mg DAILY@0800 [facility] Administration Diltiazem HCl 240 mg 10/28/18 10:00 11/02/18 08:59 Cardizem Cd - PO 240 mg DAILY [facility] Administration Heparin Sodium (Porcine) 5,000 unit 10/28/18 06:00 11/02/18 13:35 Heparin - SQ 5,000 unit TID [facility] Administration Vancomycin HCl 1,000 mg in 250 mls @ 166.667 mls/hr 11/02/18 11:30 11/02/18 11:55 Vancomycin (Pre-Docked) IVPB 166.667 mls/hr Q12H [facility] Administration Protocol Cefepime HCl 1 gm/ Dextrose 100 mls @ 200 mls/hr 11/02/18 11:15 11/02/18 17: 02 IVPB 200 mls/hr Q8H-IV [facility] Administration Protocol Levothyroxine Sodium 50 mcg 11/01/18 07:00 11/02/18 06:14 Synthroid - PO 50 mcg DAILY@0700 [facility] Administration Pantoprazole Sodium 40 mg 10/27/18 18:00 11/02/18 09:35 Protonix Iv IVPB 40 mg DAILY [facility] Administration Valacyclovir HCl 500 mg 11/01/18 19:45 11/02/18 09:00 Valtrex - PO 500 mg DAILY [facility] Administration On Examination: Last Vital Signs Temp Pulse Resp BP Pulse Ox 99.0 F 88 18 108/59 L 93 L 11/02/18 13:24 11/02/18 13:24 11/02/18 13:24 11/02/18 13:24 11/01/18 21:00 General: In no acute distress, lying comfortably in bed. Extremities: No pallor or icterus. No pedal edema. No palpable lymphadenopathy. Chest: breathing comfortably Abdomen: Non-distended, non-tender, no palpable organomegaly. Neuro: Alert, oriented, non-focal. Labs: CBC, BMP 11/02/18 06:53 11/02/18 06:53 Assessment. IgA myeloma, with anemia and proteinuria (normal creatinine). Untreated previously. Started treatment with Velcade/Dex - 1st dose on 10/14. Mild coagulopathy - possible factor X/amyloid related - holding off on renal biopsy pending resolution - improving. Isolated fever last night - likely non-hemolytic febrile reaction from transfusion. Not neutropenic. If remains afebrile > 24 hours, and cultures negative then would stop Abics.
[2018-11-02] MEDS: ATORVASTATIN CA 40 MG TABLET (FP) PO SCH (22:53)
[2018-11-03] MEDS ORDERED: CEFEPIME HCL 1 GM VIAL (RESTRICTED TO ID) ONE ×3 (00:56→17:36)
[2018-11-03] MEDS ORDERED: DEXTROSE 5%-WATER 100 ML IVPB ONE ×3 (00:56→17:36)
[2018-11-03] MEDS: CEFEPIME 1 GM in DEXTROSE 5%-WATER 100 ML IVPB SCH ×3 (01:02→17:42)
[2018-11-03] MEDS: LEVOTHYROXINE NA 50 MCG TABLET (FP) PO SCH (06:07)
[2018-11-03] MEDS: HEPARIN NA (PORCINE) 5,000 UNITS/ML 1ML VIAL SQ SCH ×3 (06:07→22:23)
[2018-11-03 06:58] LABS: BASO % 0.4 % (0-2.0); EOS % 0.5 % (0-4.5); HEMATOCRIT 28.4 % (32.4-45.2); HEMOGLOBIN 9.4 GM/dL (10.7-15.3); LYMPH % 26.5 % (8-40); MCH 30.4 pg (25.7-33.7); MEAN PLT VOLUME 9.1 fl (7.5-11.1); MONO % 9.6 % (3.8-10.2); PLATELET COUNT 109 K/MM3 (134-434); RBC 3.09 M/mm3 (3.60-5.2); RDW 16.2 % (11.6-15.6); WHITE BLOOD COUNT 4.2 K/mm3 (4.0-10.0)
[2018-11-03 07:08] LABS: ALBUMIN 1.1 g/dl (3.4-5.0); ALK PHOS 51 U/L (45-117); ANION GAP 9 MMOL/L (8-16); BILIRUBIN,TOTAL 0.4 mg/dL (0.2-1); BLOOD UREA NITROGEN 14 mg/dL (7-18); CALCIUM 8.3 mg/dL (8.5-10.1); CHLORIDE 104 mmol/L (98-107); CO2 25 mmol/L (21-32); CREATININE 0.8 mg/dL (0.55-1.3); GLUCOSE,RANDOM 83 mg/dL (74-106); POTASSIUM 3.8 mmol/L (3.5-5.1); SGOT/AST 12 U/L (15-37); SGPT/ALT 11 U/L (13-61); SODIUM 138 mmol/L (136-145); TOT PROT 7.3 g/dl (6.4-8.2)
[2018-11-03] MEDS: ATOVAQUONE 750 MG/5 ML (UNIT-DOSE PACKAGING) PO SCH (09:36)
[2018-11-03] MEDS: ALLOPURINOL 300 MG TABLET (FP) PO SCH (09:37)
[2018-11-03] MEDS: PANTOPRAZOLE 40 MG TABLET (FP) PO SCH (09:37)
[2018-11-03] MEDS ORDERED: PT OWN MED DRAWER 7, Y5N ONE (12:23)
[2018-11-03] MEDS: valACYclovir HCL 500 MG TABLET (FP) PO SCH (12:24)
[2018-11-03] MEDS: VANCOMYCIN 1 GRAM (PRE-DOCKED) 1,000 MG/250 ML BAG IVPB SCH ×2 (12:25→22:32)
--- NOTE | 2018-11-03 12:44 | PN ---
Progress Note, Physician History of Present Illness: Recurrent low grade temp No focal complaint No chills Cultures prelim negative WBC improved 4.2 ANC 2.7 - Current Medication List Current Medications: Active Medications Acetaminophen (Tylenol -) 650 mg PO Q6H PRN PRN Reason: FEVER Last Admin: 11/02/18 22:53 Dose: 650 mg Allopurinol (Zyloprim -) 300 mg PO DAILY [facility] Last Admin: 11/03/18 09:37 Dose: 300 mg Atorvastatin Calcium (Lipitor -) 40 mg PO HS [facility] Last Admin: 11/02/18 22:53 Dose: 40 mg Atovaquone (Mepron -) 1,500 mg PO DAILY@0800 [facility] Last Admin: 11/03/18 09:36 Dose: 1,500 mg Diltiazem HCl (Cardizem Cd -) 240 mg PO DAILY [facility] Last Admin: 11/03/18 09:37 Dose: 240 mg Heparin Sodium (Porcine) (Heparin -) 5,000 unit SQ TID [facility] Last Admin: 11/03/18 06:07 Dose: 5,000 unit Vancomycin HCl (Vancomycin (Pre-Docked)) 1,000 mg in 250 mls @ 166.667 mls/hr IVPB Q12H [facility]; Protocol Last Admin: 11/03/18 12:25 Dose: 166.667 mls/hr Cefepime HCl 1 gm/ Dextrose 100 mls @ 200 mls/hr IVPB Q8H-IV [facility]; Protocol Last Admin: 11/03/18 09:36 Dose: 200 mls/hr Levothyroxine Sodium (Synthroid -) 50 mcg PO DAILY@0700 [facility] Last Admin: 11/03/18 06:07 Dose: 50 mcg Pantoprazole Sodium (Protonix -) 40 mg PO DAILY [facility] Last Admin: 11/03/18 09:37 Dose: 40 mg Valacyclovir HCl (Valtrex -) 500 mg PO DAILY [facility] Last Admin: 11/03/18 12:24 Dose: 500 mg - Objective Vital Signs: Vital Signs Temperature 99.4 F 11/03/18 05:49 Pulse Rate 100 H 11/03/18 05:49 Respiratory Rate 20 11/03/18 05:49 Blood Pressure 127/73 11/03/18 05:49 O2 Sat by Pulse Oximetry (%) 93 L 11/02/18 21:00 Constitutional: Yes: No Distress Eyes: Yes: Conjunctiva Clear Cardiovascular: Yes: Regular Rate and Rhythm, S1, S2 Gastrointestinal: Yes: Normal Bowel Sounds, Soft. No: Tenderness Labs: CBC, BMP 11/03/18 05:15 11/03/18 05:15 INR, PTT INR 1.08 (0.83-1.09) 11/01/18 05:30 Fibrinogen 367.0 mg/dL (238-498) D 11/01/18 05:30 Assessment/Plan Fever ? source Leukopenia/ neutropenia improved Hx Myeloma PCN allergy Cultures pending Continue vancomycin/ cefepime
--- NOTE | 2018-11-03 12:49 | PN ---
Progress Note, Physician History of Present Illness: Pt seen and examined at bedside. She is awake and alert. She is still having fevers. - Current Medication List Current Medications: Active Medications Acetaminophen (Tylenol -) 650 mg PO Q6H PRN PRN Reason: FEVER Last Admin: 11/02/18 22:53 Dose: 650 mg Allopurinol (Zyloprim -) 300 mg PO DAILY [facility] Last Admin: 11/03/18 09:37 Dose: 300 mg Atorvastatin Calcium (Lipitor -) 40 mg PO HS [facility] Last Admin: 11/02/18 22:53 Dose: 40 mg Atovaquone (Mepron -) 1,500 mg PO DAILY@0800 [facility] Last Admin: 11/03/18 09:36 Dose: 1,500 mg Diltiazem HCl (Cardizem Cd -) 240 mg PO DAILY [facility] Last Admin: 11/03/18 09:37 Dose: 240 mg Heparin Sodium (Porcine) (Heparin -) 5,000 unit SQ TID [facility] Last Admin: 11/03/18 06:07 Dose: 5,000 unit Vancomycin HCl (Vancomycin (Pre-Docked)) 1,000 mg in 250 mls @ 166.667 mls/hr IVPB Q12H [facility]; Protocol Last Admin: 11/03/18 12:25 Dose: 166.667 mls/hr Cefepime HCl 1 gm/ Dextrose 100 mls @ 200 mls/hr IVPB Q8H-IV [facility]; Protocol Last Admin: 11/03/18 09:36 Dose: 200 mls/hr Levothyroxine Sodium (Synthroid -) 50 mcg PO DAILY@0700 [facility] Last Admin: 11/03/18 06:07 Dose: 50 mcg Pantoprazole Sodium (Protonix -) 40 mg PO DAILY [facility] Last Admin: 11/03/18 09:37 Dose: 40 mg Valacyclovir HCl (Valtrex -) 500 mg PO DAILY [facility] Last Admin: 11/03/18 12:24 Dose: 500 mg - Objective Vital Signs: Vital Signs Temperature 99.4 F 11/03/18 05:49 Pulse Rate 100 H 11/03/18 05:49 Respiratory Rate 20 11/03/18 05:49 Blood Pressure 127/73 11/03/18 05:49 O2 Sat by Pulse Oximetry (%) 93 L 11/02/18 21:00 Constitutional: Yes: Calm Eyes: Yes: Conjunctiva Clear HENT: Yes: Atraumatic Cardiovascular: Yes: S1, S2 Respiratory: Yes: CTA Bilaterally Gastrointestinal: Yes: Soft Genitourinary: Yes: WNL Musculoskeletal: Yes: WNL Edema: No Neurological: Yes: Oriented Psychiatric: Yes: Oriented Labs: CBC, BMP 11/03/18 05:15 11/03/18 05:15 INR, PTT INR 1.08 (0.83-1.09) 11/01/18 05:30 Fibrinogen 367.0 mg/dL (238-498) D 11/01/18 05:30 Problem List - Problems (1) Dehydration Code(s): E86.0 - DEHYDRATION (2) Hypothyroidism Code(s): E03.9 - HYPOTHYROIDISM, UNSPECIFIED Qualifiers: Hypothyroidism type: acquired Qualified Code(s): E03.9 - Hypothyroidism, unspecified (3) Multiple myeloma Code(s): C90.00 - MULTIPLE MYELOMA NOT HAVING ACHIEVED REMISSION Qualifiers: Multiple myeloma remission status: unspecified Qualified Code(s): C90.00 - Multiple myeloma not having achieved remission (4) Nausea Code(s): R11.0 - NAUSEA (5) Proteinuria Code(s): R80.9 - PROTEINURIA, UNSPECIFIED Assessment/Plan Current Medications Generic Name Dose Route Start Last Admin Trade Name Freq PRN Reason Stop Dose Admin Acetaminophen 650 mg 11/02/18 02:34 11/02/18 22:53 Tylenol - PO 650 mg Q6H PRN Administration FEVER Allopurinol 300 mg 10/29/18 12:30 11/03/18 09:37 Zyloprim - PO 300 mg DAILY [facility] Administration Atorvastatin Calcium 40 mg 10/28/18 22:00 11/02/18 22:53 Lipitor - PO 40 mg HS [facility] Administration Atovaquone 1,500 mg 11/02/18 08:00 11/03/18 09:36 Mepron - PO 1,500 mg DAILY@0800 [facility] Administration Diltiazem HCl 240 mg 10/28/18 10:00 11/03/18 09:37 Cardizem Cd - PO 240 mg DAILY [facility] Administration Heparin Sodium (Porcine) 5,000 unit 10/28/18 06:00 11/03/18 06:07 Heparin - SQ 5,000 unit TID [facility] Administration Vancomycin HCl 1,000 mg in 250 mls @ 166.667 mls/hr 11/02/18 11:30 11/03/18 12:25 Vancomycin (Pre-Docked) IVPB 166.667 mls/hr Q12H [facility] Administration Protocol Cefepime HCl 1 gm/ Dextrose 100 mls @ 200 mls/hr 11/02/18 11:15 11/03/18 09: 36 IVPB 200 mls/hr Q8H-IV [facility] Administration Protocol Levothyroxine Sodium 50 mcg 11/01/18 07:00 11/03/18 06:07 Synthroid - PO 50 mcg DAILY@0700 [facility] Administration Pantoprazole Sodium 40 mg 11/03/18 10:00 11/03/18 09:37 Protonix - PO 40 mg DAILY [facility] Administration Valacyclovir HCl 500 mg 11/01/18 19:45 11/03/18 12:24 Valtrex - PO 500 mg DAILY [facility] Administration Impression 1. proteinuria 2. multiple myeloma 3. failure to thrive 4. dehydration 5. htn 6. HLD 7. hypothyroidism 8. elevated PTT 9. anemia 10. hyperkalemia Plan - cont to monitor renal function - follow cultures - ID follow up - monitor potassium - arb on hold - avoid nsaids - pt tolerating diet - fluids if she is not eating - will follow
[2018-11-03] MEDS ORDERED: BORTEZOMIB (VELCADE) 2.5 MG/ML SUB-Q INJECTION SQ ONE (15:00)
[2018-11-03] MEDS ORDERED: DEXAMETHASONE 4 MG TABLET (FP) PO ONE (15:00)
[2018-11-03] MEDS: ACETAMINOPHEN 325 MG TABLET (FP) PO PRN (16:49)
[2018-11-03] MEDS: POLYETHYLENE GLYCOL 3350 119 GM BTL PO SCH (16:56)
--- NOTE | 2018-11-03 19:28 | PN ---
Progress Note, Physician History of Present Illness: No new complaints - Current Medication List Current Medications: Active Medications Acetaminophen (Tylenol -) 650 mg PO Q6H PRN PRN Reason: FEVER Last Admin: 11/03/18 16:49 Dose: 650 mg Allopurinol (Zyloprim -) 300 mg PO DAILY [facility] Last Admin: 11/03/18 09:37 Dose: 300 mg Atorvastatin Calcium (Lipitor -) 40 mg PO HS [facility] Last Admin: 11/02/18 22:53 Dose: 40 mg Atovaquone (Mepron -) 1,500 mg PO DAILY@0800 [facility] Last Admin: 11/03/18 09:36 Dose: 1,500 mg Diltiazem HCl (Cardizem Cd -) 240 mg PO DAILY [facility] Last Admin: 11/03/18 09:37 Dose: 240 mg Heparin Sodium (Porcine) (Heparin -) 5,000 unit SQ TID [facility] Last Admin: 11/03/18 16:56 Dose: 5,000 unit Vancomycin HCl (Vancomycin (Pre-Docked)) 1,000 mg in 250 mls @ 166.667 mls/hr IVPB Q12H [facility]; Protocol Last Admin: 11/03/18 12:25 Dose: 166.667 mls/hr Cefepime HCl 1 gm/ Dextrose 100 mls @ 200 mls/hr IVPB Q8H-IV [facility]; Protocol Last Admin: 11/03/18 17:42 Dose: 200 mls/hr Levothyroxine Sodium (Synthroid -) 50 mcg PO DAILY@0700 [facility] Last Admin: 11/03/18 06:07 Dose: 50 mcg Pantoprazole Sodium (Protonix -) 40 mg PO DAILY [facility] Last Admin: 11/03/18 09:37 Dose: 40 mg Polyethylene Glycol (Miralax (For Daily Use) -) 17 gm PO DAILY [facility] Last Admin: 11/03/18 16:56 Dose: 17 grams Valacyclovir HCl (Valtrex -) 500 mg PO DAILY [facility] Last Admin: 11/03/18 12:24 Dose: 500 mg - Objective Vital Signs: Vital Signs Temperature 102.3 F H 11/03/18 17:46 Pulse Rate 100 H 11/03/18 17:46 Respiratory Rate 20 11/03/18 17:46 Blood Pressure 109/61 11/03/18 17:46 O2 Sat by Pulse Oximetry (%) 95 11/03/18 09:00 Neck: Yes: WNL, Supple Cardiovascular: Yes: WNL, Regular Rate and Rhythm Respiratory: Yes: WNL, Regular, CTA Bilaterally Gastrointestinal: Yes: WNL, Normal Bowel Sounds, Soft Labs: CBC, BMP 11/03/18 05:15 11/03/18 05:15 INR, PTT INR 1.08 (0.83-1.09) 11/01/18 05:30 Fibrinogen 367.0 mg/dL (238-498) D 11/01/18 05:30 Problem List - Problems (1) Fever Assessment/Plan: Follow cultures COnt cefepime/vanco WBC is normal Code(s): R50.9 - FEVER, UNSPECIFIED (2) Multiple myeloma Assessment/Plan: Chemotx as per onco Code(s): C90.00 - MULTIPLE MYELOMA NOT HAVING ACHIEVED REMISSION Qualifiers: Multiple myeloma remission status: unspecified Qualified Code(s): C90.00 - Multiple myeloma not having achieved remission (3) Nausea Assessment/Plan: Multifactorial Due to chemotx Code(s): R11.0 - NAUSEA (4) Acute on chronic renal failure Assessment/Plan: As per renal Monitor labs Pt unable to get renal bx due to elevated PTT Code(s): N17.9 - ACUTE KIDNEY FAILURE, UNSPECIFIED; N18.9 - CHRONIC KIDNEY DISEASE, UNSPECIFIED Qualifiers: Chronic kidney disease stage: stage 2 (mild) (5) HTN (hypertension) Code(s): I10 - ESSENTIAL (PRIMARY) HYPERTENSION (6) HLD (hyperlipidemia) Code(s): E78.5 - HYPERLIPIDEMIA, UNSPECIFIED (7) Hypothyroidism Code(s): E03.9 - HYPOTHYROIDISM, UNSPECIFIED Qualifiers: Hypothyroidism type: acquired Qualified Code(s): E03.9 - Hypothyroidism, unspecified (8) Anemia Code(s): D64.9 - ANEMIA, UNSPECIFIED Qualifiers: Chronic kidney disease stage: unspecified stage (9) Troponin I above reference range Code(s): R74.8 - ABNORMAL LEVELS OF OTHER SERUM ENZYMES
--- NOTE | 2018-11-03 20:25 | PN ---
Progress Note (short form) - Note Progress Note: Patient seen and examined Temp spike to 102.3 Given tylenol with defervescence and seen by ID with continuation of antibiotic therapy Last Vital Signs Temp Pulse Resp BP Pulse Ox 102.3 F H 100 H 20 109/61 95 11/03/18 17:46 11/03/18 17:46 11/03/18 17:46 11/03/18 17:46 11/03/18 09:00 HEENT: ZOILA, EOM Intact Cor: RSR, No murmurs, No gallops Lungs: Clear to P&A Abd: Soft, Normal bowel sounds, No organomegaly Ext:No significant edema Skin: No rashes, Integument intact CBC, BMP 11/03/18 05:15 11/03/18 05:15 Current Medications Generic Name Dose Route Start Last Admin Trade Name Freq PRN Reason Stop Dose Admin Acetaminophen 650 mg 11/02/18 02:34 11/03/18 16:49 Tylenol - PO 650 mg Q6H PRN Administration FEVER Allopurinol 300 mg 10/29/18 12:30 11/03/18 09:37 Zyloprim - PO 300 mg DAILY [facility] Administration Atorvastatin Calcium 40 mg 10/28/18 22:00 11/02/18 22:53 Lipitor - PO 40 mg HS [facility] Administration Atovaquone 1,500 mg 11/02/18 08:00 11/03/18 09:36 Mepron - PO 1,500 mg DAILY@0800 [facility] Administration Diltiazem HCl 240 mg 10/28/18 10:00 11/03/18 09:37 Cardizem Cd - PO 240 mg DAILY [facility] Administration Heparin Sodium (Porcine) 5,000 unit 10/28/18 06:00 11/03/18 16:56 Heparin - SQ 5,000 unit TID [facility] Administration Vancomycin HCl 1,000 mg in 250 mls @ 166.667 mls/hr 11/02/18 11:30 11/03/18 12:25 Vancomycin (Pre-Docked) IVPB 166.667 mls/hr Q12H [facility] Administration Protocol Cefepime HCl 1 gm/ Dextrose 100 mls @ 200 mls/hr 11/02/18 11:15 11/03/18 17: 42 IVPB 200 mls/hr Q8H-IV [facility] Administration Protocol Levothyroxine Sodium 50 mcg 11/01/18 07:00 11/03/18 06:07 Synthroid - PO 50 mcg DAILY@0700 [facility] Administration Pantoprazole Sodium 40 mg 11/03/18 10:00 11/03/18 09:37 Protonix - PO 40 mg DAILY [facility] Administration Polyethylene Glycol 17 gm 11/03/18 13:45 11/03/18 16:56 Miralax (For Daily Use) - PO 17 grams DAILY [facility] Administration Valacyclovir HCl 500 mg 11/01/18 19:45 11/03/18 12:24 Valtrex - PO 500 mg DAILY [facility] Administration Impression: Fevers- antibiotics Myeloma - received Velcade Pancytopenia secondary to therapy. Continue treatment Continue antibiotics
[2018-11-03] MEDS: ATORVASTATIN CA 40 MG TABLET (FP) PO SCH (22:23)
[2018-11-04] MEDS ORDERED: CEFEPIME HCL 1 GM VIAL (RESTRICTED TO ID) ONE ×3 (01:42→16:54)
[2018-11-04] MEDS ORDERED: DEXTROSE 5%-WATER 100 ML IVPB ONE ×3 (01:42→16:54)
[2018-11-04] MEDS: CEFEPIME 1 GM in DEXTROSE 5%-WATER 100 ML IVPB SCH ×3 (02:10→17:28)
[2018-11-04 06:28] LABS: BASO % 0.3 % (0-2.0); HEMATOCRIT 26.6 % (32.4-45.2); HEMOGLOBIN 8.9 GM/dL (10.7-15.3); LYMPH % 12.4 % (8-40); MCH 30.5 pg (25.7-33.7); MCHC 33.2 g/dl (32.0-36.0); MEAN CELL VOLUME 91.8 fl (80-96); MEAN PLT VOLUME 8.8 fl (7.5-11.1); MONO % 1.4 % (3.8-10.2); NEUT % 85.9 % (42.8-82.8); PLATELET COUNT 127 K/MM3 (134-434); RDW 16.4 % (11.6-15.6)
[2018-11-04 06:39] LABS: INR 1.12 (0.83-1.09); PROTHROMBIN TIME (PATIENT) 13.2 SEC (9.7-13.0)
[2018-11-04 06:41] LABS: ACTIVATED PTT 27.2 SECONDS (25.2-36.5)
[2018-11-04] MEDS: LEVOTHYROXINE NA 50 MCG TABLET (FP) PO SCH (06:41)
[2018-11-04 06:51] LABS: ALBUMIN 1.2 g/dl (3.4-5.0); ALK PHOS 52 U/L (45-117); ANION GAP 12 MMOL/L (8-16); BILIRUBIN,TOTAL 0.2 mg/dL (0.2-1); BLOOD UREA NITROGEN 19 mg/dL (7-18); CALCIUM 8.5 mg/dL (8.5-10.1); CHLORIDE 101 mmol/L (98-107); CO2 21 mmol/L (21-32); GLUCOSE,RANDOM 145 mg/dL (74-106); LDH 148 U/L (84-246); POTASSIUM 3.8 mmol/L (3.5-5.1); SGOT/AST 10 U/L (15-37); SGPT/ALT 9 U/L (13-61); SODIUM 134 mmol/L (136-145); TOT PROT 7.8 g/dl (6.4-8.2); URIC ACID 3.3 mg/dL (2.6-7.2)
[2018-11-04] MEDS ORDERED: PT OWN MED DRAWER 7, Y5N ONE ×2 (06:52→08:32)
[2018-11-04] MEDS: ALLOPURINOL 300 MG TABLET (FP) PO SCH (09:22)
[2018-11-04] MEDS: ATOVAQUONE 750 MG/5 ML (UNIT-DOSE PACKAGING) PO SCH (09:23)
[2018-11-04] MEDS: PANTOPRAZOLE 40 MG TABLET (FP) PO SCH (09:23)
[2018-11-04] MEDS: POLYETHYLENE GLYCOL 3350 119 GM BTL PO SCH (09:23)
[2018-11-04] MEDS: valACYclovir HCL 500 MG TABLET (FP) PO SCH (10:38)
[2018-11-04] MEDS: VANCOMYCIN 1 GRAM (PRE-DOCKED) 1,000 MG/250 ML BAG IVPB SCH (10:40)
--- NOTE | 2018-11-04 13:58 | PN ---
Progress Note, Physician History of Present Illness: Pt seen and examined at bedside. She has poor appetite. - Current Medication List Current Medications: Active Medications Acetaminophen (Tylenol -) 650 mg PO Q6H PRN PRN Reason: FEVER Last Admin: 11/03/18 16:49 Dose: 650 mg Allopurinol (Zyloprim -) 300 mg PO DAILY [facility] Last Admin: 11/04/18 09:22 Dose: 300 mg Atorvastatin Calcium (Lipitor -) 40 mg PO HS [facility] Last Admin: 11/03/18 22:23 Dose: 40 mg Atovaquone (Mepron -) 1,500 mg PO DAILY@0800 [facility] Last Admin: 11/04/18 09:23 Dose: 1,500 mg Diltiazem HCl (Cardizem Cd -) 240 mg PO DAILY [facility] Last Admin: 11/04/18 09:22 Dose: 240 mg Vancomycin HCl (Vancomycin (Pre-Docked)) 1,000 mg in 250 mls @ 166.667 mls/hr IVPB Q12H [facility]; Protocol Last Admin: 11/04/18 10:40 Dose: 166.667 mls/hr Cefepime HCl 1 gm/ Dextrose 100 mls @ 200 mls/hr IVPB Q8H-IV [facility]; Protocol Last Admin: 11/04/18 09:22 Dose: 200 mls/hr Levothyroxine Sodium (Synthroid -) 50 mcg PO DAILY@0700 [facility] Last Admin: 11/04/18 06:41 Dose: 50 mcg Pantoprazole Sodium (Protonix -) 40 mg PO DAILY [facility] Last Admin: 11/04/18 09:23 Dose: 40 mg Polyethylene Glycol (Miralax (For Daily Use) -) 17 gm PO DAILY [facility] Last Admin: 11/04/18 09:23 Dose: 17 grams Valacyclovir HCl (Valtrex -) 500 mg PO DAILY [facility] Last Admin: 11/04/18 10:38 Dose: 500 mg - Objective Vital Signs: Vital Signs Temperature 98.1 F 11/04/18 10:00 Pulse Rate 105 H 11/04/18 10:00 Respiratory Rate 20 11/04/18 10:00 Blood Pressure 124/68 11/04/18 10:00 O2 Sat by Pulse Oximetry (%) 99 11/04/18 09:00 Constitutional: Yes: Calm Eyes: Yes: Conjunctiva Clear HENT: Yes: Atraumatic Neck: Yes: Supple Cardiovascular: Yes: S1, S2 Respiratory: Yes: CTA Bilaterally Gastrointestinal: Yes: Soft Genitourinary: Yes: WNL Musculoskeletal: Yes: WNL Extremities: Yes: WNL Edema: No Neurological: Yes: Oriented Psychiatric: Yes: Oriented Labs: CBC, BMP 11/04/18 05:00 11/04/18 05:00 INR, PTT INR 1.12 (0.83-1.09) H 11/04/18 05:00 Fibrinogen 401.0 mg/dL (238-498) 11/04/18 05:00 Problem List - Problems (1) Dehydration Code(s): E86.0 - DEHYDRATION (2) Hypothyroidism Code(s): E03.9 - HYPOTHYROIDISM, UNSPECIFIED Qualifiers: Hypothyroidism type: acquired Qualified Code(s): E03.9 - Hypothyroidism, unspecified (3) Multiple myeloma Code(s): C90.00 - MULTIPLE MYELOMA NOT HAVING ACHIEVED REMISSION Qualifiers: Multiple myeloma remission status: unspecified Qualified Code(s): C90.00 - Multiple myeloma not having achieved remission (4) Nausea Code(s): R11.0 - NAUSEA (5) Proteinuria Code(s): R80.9 - PROTEINURIA, UNSPECIFIED Assessment/Plan Current Medications Generic Name Dose Route Start Last Admin Trade Name Freq PRN Reason Stop Dose Admin Acetaminophen 650 mg 11/02/18 02:34 11/03/18 16:49 Tylenol - PO 650 mg Q6H PRN Administration FEVER Allopurinol 300 mg 10/29/18 12:30 11/04/18 09:22 Zyloprim - PO 300 mg DAILY [facility] Administration Atorvastatin Calcium 40 mg 10/28/18 22:00 11/03/18 22:23 Lipitor - PO 40 mg HS [facility] Administration Atovaquone 1,500 mg 11/02/18 08:00 11/04/18 09:23 Mepron - PO 1,500 mg DAILY@0800 [facility] Administration Diltiazem HCl 240 mg 10/28/18 10:00 11/04/18 09:22 Cardizem Cd - PO 240 mg DAILY [facility] Administration Vancomycin HCl 1,000 mg in 250 mls @ 166.667 mls/hr 11/02/18 11:30 11/04/18 10:40 Vancomycin (Pre-Docked) IVPB 166.667 mls/hr Q12H [facility] Administration Protocol Cefepime HCl 1 gm/ Dextrose 100 mls @ 200 mls/hr 11/02/18 11:15 11/04/18 09: 22 IVPB 200 mls/hr Q8H-IV [facility] Administration Protocol Levothyroxine Sodium 50 mcg 11/01/18 07:00 11/04/18 06:41 Synthroid - PO 50 mcg DAILY@0700 [facility] Administration Pantoprazole Sodium 40 mg 11/03/18 10:00 11/04/18 09:23 Protonix - PO 40 mg DAILY [facility] Administration Polyethylene Glycol 17 gm 11/03/18 13:45 11/04/18 09:23 Miralax (For Daily Use) - PO 17 grams DAILY [facility] Administration Valacyclovir HCl 500 mg 11/01/18 19:45 11/04/18 10:38 Valtrex - PO 500 mg DAILY [facility] Administration Microbiology 11/02/18 01:45 Blood - Peripheral Venous Blood Culture - Preliminary NO GROWTH OBTAINED AFTER 48 HOURS, INCUBATION TO CONTINUE FOR 3 DAYS. 11/02/18 01:15 Blood - Peripheral Venous Blood Culture - Preliminary NO GROWTH OBTAINED AFTER 48 HOURS, INCUBATION TO CONTINUE FOR 3 DAYS. Impression 1. proteinuria 2. multiple myeloma 3. failure to thrive 4. dehydration 5. htn 6. HLD 7. hypothyroidism 8. elevated PTT 9. anemia 10. hyperkalemia Plan - will restart gentle hydration - follow cultures - abx per ID - repeat labs in am - monitor potassium - arb on hold - will follow
[2018-11-04] MEDS ORDERED: SODIUM CHLORIDE 1,000 ML IV SCH (14:00)
--- NOTE | 2018-11-04 14:35 | PN ---
Progress Note (short form) - Note Progress Note: In bed in NAD Denies any complaints Vital Signs Period Temp Pulse Resp BP Sys/Moss Pulse Ox Last 24 Hr 97.7 F-102.3 F 94-105 20-20 100-124/56-82 95-99 PE: AOx3 Neck: Supple, No JVD HEENT: EOMI Lungs: CTA CVS: S1S2 Abd: Benign EXT: No edema Neuro: No focal deficit CMP Sodium 134 mmol/L (136-145) L 11/04/18 05:00 Potassium 3.8 mmol/L (3.5-5.1) 11/04/18 05:00 Chloride 101 mmol/L (98-107) 11/04/18 05:00 Carbon Dioxide 21 mmol/L (21-32) 11/04/18 05:00 Anion Gap 12 MMOL/L (8-16) 11/04/18 05:00 BUN 19 mg/dL (7-18) H 11/04/18 05:00 Creatinine 1.0 mg/dL (0.55-1.3) 11/04/18 05:00 Creat Clearance w eGFR 54.20 (>60) 11/04/18 05:00 Random Glucose 145 mg/dL (74-106) H 11/04/18 05:00 Lactic Acid 1.7 mmol/L (0.4-2.0) 10/27/18 12:30 Uric Acid 3.3 mg/dL (2.6-7.2) 11/04/18 05:00 Calcium 8.5 mg/dL (8.5-10.1) 11/04/18 05:00 Phosphorus 3.6 mg/dL (2.5-4.9) 10/27/18 12:30 Magnesium 2.2 mg/dL (1.8-2.4) 10/27/18 12:30 Total Bilirubin 0.2 mg/dL (0.2-1) 11/04/18 05:00 AST 10 U/L (15-37) L 11/04/18 05:00 ALT 9 U/L (13-61) L 11/04/18 05:00 Alkaline Phosphatase 52 U/L (45-117) 11/04/18 05:00 LD Total 148 U/L (84-246) 11/04/18 05:00 Creatine Kinase 146 IU/L (26-192) 10/30/18 10:35 Troponin I 0.23 ng/ml (0.00-0.05) H 10/30/18 10:35 Total Protein 7.8 g/dl (6.4-8.2) 11/04/18 05:00 Albumin 1.2 g/dl (3.4-5.0) L 11/04/18 05:00 TSH 25.80 uIU/ml (0.358-3.74) H 10/31/18 06:15 Free T4 0.55 ng/dl (0.76-1.46) L 10/28/18 05:30 Current Medications Generic Name Dose Route Start Last Admin Trade Name Freq PRN Reason Stop Dose Admin Acetaminophen 650 mg 11/02/18 02:34 11/03/18 16:49 Tylenol - PO 650 mg Q6H PRN Administration FEVER Allopurinol 300 mg 10/29/18 12:30 11/04/18 09:22 Zyloprim - PO 300 mg DAILY [facility] Administration Atorvastatin Calcium 40 mg 10/28/18 22:00 11/03/18 22:23 Lipitor - PO 40 mg HS [facility] Administration Atovaquone 1,500 mg 11/02/18 08:00 11/04/18 09:23 Mepron - PO 1,500 mg DAILY@0800 [facility] Administration Diltiazem HCl 240 mg 10/28/18 10:00 11/04/18 09:22 Cardizem Cd - PO 240 mg DAILY [facility] Administration Vancomycin HCl 1,000 mg in 250 mls @ 166.667 mls/hr 11/02/18 11:30 11/04/18 10:40 Vancomycin (Pre-Docked) IVPB 166.667 mls/hr Q12H [facility] Administration Protocol Cefepime HCl 1 gm/ Dextrose 100 mls @ 200 mls/hr 11/02/18 11:15 11/04/18 09: 22 IVPB 200 mls/hr Q8H-IV [facility] Administration Protocol Sodium Chloride 1,000 mls @ 42 mls/hr 11/04/18 14:00 Normal Saline - IV ASDIR [facility] Levothyroxine Sodium 50 mcg 11/01/18 07:00 11/04/18 06:41 Synthroid - PO 50 mcg DAILY@0700 [facility] Administration Pantoprazole Sodium 40 mg 11/03/18 10:00 11/04/18 09:23 Protonix - PO 40 mg DAILY [facility] Administration Polyethylene Glycol 17 gm 11/03/18 13:45 11/04/18 09:23 Miralax (For Daily Use) - PO 17 grams DAILY [facility] Administration Valacyclovir HCl 500 mg 11/01/18 19:45 11/04/18 10:38 Valtrex - PO 500 mg DAILY [facility] Administration AP: Hypothyroidism: Rpt TSH 25,8 from TSH 10.1 FT4 0.55 TPO 18 WNL Unclear why TSH is higher now on increased dose of LT4 to 50. Possible absorption issue. Review of chart shows that Methimazole was not given in hospital. Continue LT4 50mcg for now, to be given at 5 AM Repeat TSH now. If no improvement will increase dose to 75mcg will f/u Multiple Myeloma HTN HLD Anemia
--- NOTE | 2018-11-04 15:38 | PN ---
Progress Note, Physician History of Present Illness: Recurrent fever, now higher grade 102+ C/O R ankle swelling No calf pain No chills Cultures negative - Current Medication List Current Medications: Active Medications Acetaminophen (Tylenol -) 650 mg PO Q6H PRN PRN Reason: FEVER Last Admin: 11/03/18 16:49 Dose: 650 mg Allopurinol (Zyloprim -) 300 mg PO DAILY [facility] Last Admin: 11/04/18 09:22 Dose: 300 mg Atorvastatin Calcium (Lipitor -) 40 mg PO HS [facility] Last Admin: 11/03/18 22:23 Dose: 40 mg Atovaquone (Mepron -) 1,500 mg PO DAILY@0800 [facility] Last Admin: 11/04/18 09:23 Dose: 1,500 mg Diltiazem HCl (Cardizem Cd -) 240 mg PO DAILY [facility] Last Admin: 11/04/18 09:22 Dose: 240 mg Vancomycin HCl (Vancomycin (Pre-Docked)) 1,000 mg in 250 mls @ 166.667 mls/hr IVPB Q12H [facility]; Protocol Last Admin: 11/04/18 10:40 Dose: 166.667 mls/hr Cefepime HCl 1 gm/ Dextrose 100 mls @ 200 mls/hr IVPB Q8H-IV [facility]; Protocol Last Admin: 11/04/18 09:22 Dose: 200 mls/hr Sodium Chloride (Normal Saline -) 1,000 mls @ 42 mls/hr IV ASDIR [facility] Last Admin: 11/04/18 15:04 Dose: 42 mls/hr Levothyroxine Sodium (Synthroid -) 50 mcg PO DAILY@0700 [facility] Last Admin: 11/04/18 06:41 Dose: 50 mcg Pantoprazole Sodium (Protonix -) 40 mg PO DAILY [facility] Last Admin: 11/04/18 09:23 Dose: 40 mg Polyethylene Glycol (Miralax (For Daily Use) -) 17 gm PO DAILY [facility] Last Admin: 11/04/18 09:23 Dose: 17 grams Valacyclovir HCl (Valtrex -) 500 mg PO DAILY [facility] Last Admin: 11/04/18 10:38 Dose: 500 mg - Objective Vital Signs: Vital Signs Temperature 98.8 F 11/04/18 15:07 Pulse Rate 110 H 11/04/18 15:07 Respiratory Rate 20 11/04/18 15:07 Blood Pressure 137/68 11/04/18 15:07 O2 Sat by Pulse Oximetry (%) 99 11/04/18 09:00 Constitutional: Yes: No Distress Eyes: Yes: Conjunctiva Clear Cardiovascular: Yes: Regular Rate and Rhythm, S1, S2 Respiratory: Yes: CTA Bilaterally Gastrointestinal: Yes: Normal Bowel Sounds, Soft. No: Tenderness Extremities: Yes: Other (R ankle swelling no tenderness). No: Calf Tenderness Labs: CBC, BMP 11/04/18 05:00 11/04/18 05:00 INR, PTT INR 1.12 (0.83-1.09) H 11/04/18 05:00 Fibrinogen 401.0 mg/dL (238-498) 11/04/18 05:00 Assessment/Plan Fever ? source Leukopenia/ neutropenia improved Hx Myeloma PCN allergy Cultures no growth Continue vancomycin/ cefepime Doppler LE
--- NOTE | 2018-11-04 19:12 | PN ---
Teaching Attending Note Name of Resident: Casey Salazar ATTENDING PHYSICIAN STATEMENT I saw and evaluated the patient. I reviewed the resident's note and discussed the case with the resident. I agree with the resident's findings and plan as documented. ASSESSMENT AND PLAN: 73 y/o patient with myeloma/? amyloid, on velcade/cytoxan/dexamethasone a/w vomiting/hypotension dose no.3 velcade and dose no.1 cytoxan on 10/27 received dose no. 4 velcade 11/03/17 Temperature cureve and O2 sat improved On vanco/cefepime ? pneumonia, occult Cough improved PTT--normal Patient to get fat pad biopsy tomorrow to r/o amyloid discussed overall diagnosis and details of her condition, concern for amyloid with patient physical therapy consult
--- NOTE | 2018-11-04 19:56 | CONSULT ---
Consult Consult Specialty:: General Surgery Referred by:: Dr. Stuart Reason for Consultation:: need fat pad biopsy - History of Present Illness Chief Complaint: proteinuria, no specific complaints by patient History of Present Illness: 73yo F with multiple myeloma and other medical issues, s/p multiple abdominal surgeries, admitted last week with N/V, lethargy, weakness prior to 3rd chemotherapy. She has since had 4th weekly cycle yesterday, and is feeling much better than when admitted. She was recently in hospital as well, with diagnosis of myeloma progression leading to start of chemo. She has nephrotic proteinuria , and amyloidosis is suspected, but with paraproteins, her bleeding risk has been too high to perform renal biopsy. Coagulopathy has since been corrected, though she may still have bleeding. Relative anemia is stable, platelets are above 100. Surgery is asked to evaluate for fat pad biopsy to evaluate for amyloid. She is seen and examined in bed, comfortable. Had dinner, is tolerating diet. Walked with walker with PT down cantu earlier. Has had 2 BMs this week, not diarrhea. No more N/V. Had also had fevers, but reports no subjective F/C, and is afebrile now. She is a fairly good historian. She reports no specific complaints. - History Source History Provided By: Patient, Medical Record Limitations to Obtaining History: No Limitations - Past Medical History Cardio/Vascular: Yes: CAD (recent CT chest showed coronary calcification), HTN Pulmonary: Yes: Asthma Gastrointestinal: Yes: Other (hiatal hernia) Renal/: Yes: Renal Inusuff, Other (proteinuria) Reproductive: Yes: Postmenopausal Heme/Onc: Yes: Anemia, Cancer (multiple myeloma), Current Chemotherapy, Thrombocytopenia, Other (pancytopenia) Psych: Yes: Depression Endocrine: Yes: Hypothyroidism - Past Surgical History Past Surgical History: Yes: Breast Biopsy (right for cysts), Hernia Repair ( laparoscopic hiatal), Hysterectomy, Tubal Ligation - Alcohol/Substance Use Hx Alcohol Use: No History of Substance Use: reports: None - Smoking History Smoking history: Former smoker Have you smoked in the past 12 months: No If you are a former smoker, when did you quit?: 1987 - Social History ADL: Independent History of Recent Travel: No Home Medications - Allergies Allergies/Adverse Reactions: Allergies Allergy/AdvReac Type Severity Reaction Status Date / Time Penicillins Allergy Severe Rash Verified 10/27/18 10:03 - Home Medications Home Medications: Ambulatory Orders Gabapentin 300 mg PO TID 06/14/13 Atorvastatin Ca [Lipitor] 40 mg PO HS 10/11/18 Diltiazem Cd [Cardizem Cd -] 240 mg PO DAILY 10/11/18 Famotidine [Pepcid] 40 mg PO DAILY 10/11/18 Levothyroxine [Synthroid -] 25 mcg PO DAILY 10/11/18 Losartan Potassium 25 mg PO DAILY 10/11/18 Meloxicam 15 mg PO DAILY 10/11/18 Methimazole 10 mg PO BID 10/11/18 Northfork-3/Dha/Epa/Fish Oil [[place] 3 500 Softgel] 1 each PO DAILY 10/11/18 Omeprazole 20 mg PO DAILY 10/11/18 Family Disease History - Family Disease History Family Disease History: CA: Daughter (1 passed at 14yo of Hodgkin's lymphoma; 1 passed at 48 of lupus), Other: Daughter Other Family History: Son has Thyroid ca Review of Systems - Review of Systems Constitutional: denies: Chills, Fever Eyes: denies: Blurred Vision, Recent Change in Vision HENT: denies: Difficult Swallowing, Throat Pain Neck: denies: Swollen Glands, Tenderness Cardiovascular: denies: Chest Pain, Palpitations Respiratory: reports: Cough. denies: SOB Gastrointestinal: denies: Abdominal Pain, Constipation, Diarrhea, Nausea, Vomiting (since admission) Genitourinary: denies: Burning, Dysuria Musculoskeletal: denies: Back Pain, Joint Pain, Muscle Pain Integumentary: reports: Bruising (abdominal from injections). denies: Rash Neurological: denies: Dizziness, Headache, Unsteady Gait (walks with walker at home) Hematology/Lymphatic: reports: Easily Bruised. denies: Excessive Bleeding Psychiatric: reports: Depression. denies: Anxiety Physical Exam Vital Signs: Vital Signs Temperature 97.3 F L 11/04/18 17:29 Pulse Rate 98 H 11/04/18 17:29 Respiratory Rate 20 11/04/18 17:29 Blood Pressure 135/84 11/04/18 17:29 O2 Sat by Pulse Oximetry (%) 99 11/04/18 09:00 Constitutional: Yes: Well Nourished, No Distress, Calm Eyes: Yes: Conjunctiva Clear, EOM Intact HENT: Yes: Atraumatic, Normocephalic Neck: Yes: Supple, Trachea Midline Cardiovascular: Yes: Regular Rate and Rhythm Respiratory: Yes: Regular, CTA Bilaterally Gastrointestinal: Yes: Normal Bowel Sounds, Soft, Other (healed scars, suprapubic and laparoscopic upper; multiple bruises with firm areas/hematomas in lower abdomen from injection sites). No: Distention, Tenderness ...Rectal Exam: Yes: Deferred Renal/: No: CVA Tenderness - Left, CVA Tenderness - Right Musculoskeletal: No: Joint Stiffness, Joint Swelling Extremities: No: Cool, Cyanosis Edema: No Peripheral Pulses WNL: Yes Integumentary: Yes: Bruising (see above). No: Jaundice, Rash Neurological: Yes: Alert, Oriented Psychiatric: Yes: Alert, Oriented Labs: CBC, BMP 11/04/18 05:00 11/04/18 05:00 INR, PTT INR 1.12 (0.83-1.09) H 11/04/18 05:00 Fibrinogen 401.0 mg/dL (238-498) 11/04/18 05:00 PTT normal Urine Test Results Urine Color Ltyellow 10/30/18 16:10 Urine Appearance Clear 10/30/18 16:10 Urine pH 6.0 (5.0-8.0) 10/30/18 16:10 Ur Specific Weare 1.011 (1.010-1.035) 10/30/18 16:10 Urine Protein 3+ (NEGATIVE) H 10/30/18 16:10 Urine Glucose (UA) Negative (NEGATIVE) 10/30/18 16:10 Urine Ketones Negative (NEGATIVE) 10/30/18 16:10 Urine Blood 2+ (NEGATIVE) H 10/30/18 16:10 Urine Nitrite Negative (NEGATIVE) 10/30/18 16:10 Urine Bilirubin Negative (<2.0 mg/dL) 10/30/18 16:10 Ur Leukocyte Esterase Negative (NEGATIVE) 10/30/18 16:10 Urine Bacteria Rare /hpf (NONE SEEN) 10/30/18 16:10 Urine Mucus Rare 10/30/18 16:10 Problem List - Problems (1) Proteinuria Assessment/Plan: pt has been unable to have renal biopsy because of risk of bleeding amyloidosis suspected abdominal fat pad excisional biopsy requested Discussed with patient risks, benefits and alternatives of abdominal fat pad excisional biopsy, including but not limited to bleeding, infection; alternatives include no biopsy - risks of this include inability to establish diagnosis. Patient desires to proceed with operation - will take to OR for above tomorrow if possible, plan local[place] [place]. Informed consent signed for same. Keep NPO after midnight except meds update T&S discussed with Dr. Stuart Code(s): R80.9 - PROTEINURIA, UNSPECIFIED Qualifiers: Proteinuria type: persistent Qualified Code(s): R80.1 - Persistent proteinuria, unspecified (2) Multiple myeloma Code(s): C90.00 - MULTIPLE MYELOMA NOT HAVING ACHIEVED REMISSION Qualifiers: Multiple myeloma remission status: not in remission Qualified Code(s): C90.00 - Multiple myeloma not having achieved remission (3) Hypothyroidism Code(s): E03.9 - HYPOTHYROIDISM, UNSPECIFIED Qualifiers: Hypothyroidism type: acquired Qualified Code(s): E03.9 - Hypothyroidism, unspecified (4) HTN (hypertension) Code(s): I10 - ESSENTIAL (PRIMARY) HYPERTENSION Qualifiers: Hypertension type: essential hypertension Qualified Code(s): I10 - Essential (primary) hypertension (5) HLD (hyperlipidemia) Code(s): E78.5 - HYPERLIPIDEMIA, UNSPECIFIED Qualifiers: Hyperlipidemia type: unspecified Qualified Code(s): E78.5 - Hyperlipidemia , unspecified
[2018-11-04] MEDS: ATORVASTATIN CA 40 MG TABLET (FP) PO SCH (21:53)
--- NOTE | 2018-11-04 23:41 | PN ---
Progress Note, Physician - Current Medication List Current Medications: Active Medications Acetaminophen (Tylenol -) 650 mg PO Q6H PRN PRN Reason: FEVER Last Admin: 11/03/18 16:49 Dose: 650 mg Allopurinol (Zyloprim -) 300 mg PO DAILY [facility] Last Admin: 11/04/18 09:22 Dose: 300 mg Atorvastatin Calcium (Lipitor -) 40 mg PO HS [facility] Last Admin: 11/04/18 21:53 Dose: 40 mg Atovaquone (Mepron -) 1,500 mg PO DAILY@0800 [facility] Last Admin: 11/04/18 09:23 Dose: 1,500 mg Diltiazem HCl (Cardizem Cd -) 240 mg PO DAILY [facility] Last Admin: 11/04/18 09:22 Dose: 240 mg Vancomycin HCl (Vancomycin (Pre-Docked)) 1,000 mg in 250 mls @ 166.667 mls/hr IVPB Q12H [facility]; Protocol Last Admin: 11/04/18 10:40 Dose: 166.667 mls/hr Cefepime HCl 1 gm/ Dextrose 100 mls @ 200 mls/hr IVPB Q8H-IV [facility]; Protocol Last Admin: 11/04/18 17:28 Dose: 200 mls/hr Sodium Chloride (Normal Saline -) 1,000 mls @ 42 mls/hr IV ASDIR [facility] Last Admin: 11/04/18 15:04 Dose: 42 mls/hr Levothyroxine Sodium (Synthroid -) 50 mcg PO DAILY@0700 [facility] Last Admin: 11/04/18 06:41 Dose: 50 mcg Pantoprazole Sodium (Protonix -) 40 mg PO DAILY [facility] Last Admin: 11/04/18 09:23 Dose: 40 mg Polyethylene Glycol (Miralax (For Daily Use) -) 17 gm PO DAILY [facility] Last Admin: 11/04/18 09:23 Dose: 17 grams Valacyclovir HCl (Valtrex -) 500 mg PO DAILY [facility] Last Admin: 11/04/18 10:38 Dose: 500 mg - Objective Vital Signs: Vital Signs Temperature 97.3 F L 11/04/18 17:29 Pulse Rate 98 H 11/04/18 17:29 Respiratory Rate 20 11/04/18 17:29 Blood Pressure 135/84 11/04/18 17:29 O2 Sat by Pulse Oximetry (%) 99 11/04/18 09:00 Labs: CBC, BMP 11/04/18 05:00 11/04/18 05:00 INR, PTT INR 1.12 (0.83-1.09) H 11/04/18 05:00 Fibrinogen 401.0 mg/dL (238-498) 11/04/18 05:00 Problem List - Problems (1) Fever Code(s): R50.9 - FEVER, UNSPECIFIED (2) Multiple myeloma Code(s): C90.00 - MULTIPLE MYELOMA NOT HAVING ACHIEVED REMISSION Qualifiers: Multiple myeloma remission status: not in remission Qualified Code(s): C90.00 - Multiple myeloma not having achieved remission (3) Nausea Code(s): R11.0 - NAUSEA (4) Acute on chronic renal failure Code(s): N17.9 - ACUTE KIDNEY FAILURE, UNSPECIFIED; N18.9 - CHRONIC KIDNEY DISEASE, UNSPECIFIED Qualifiers: Chronic kidney disease stage: stage 2 (mild) (5) HTN (hypertension) Code(s): I10 - ESSENTIAL (PRIMARY) HYPERTENSION Qualifiers: Hypertension type: essential hypertension Qualified Code(s): I10 - Essential (primary) hypertension (6) HLD (hyperlipidemia) Code(s): E78.5 - HYPERLIPIDEMIA, UNSPECIFIED Qualifiers: Hyperlipidemia type: unspecified Qualified Code(s): E78.5 - Hyperlipidemia , unspecified (7) Hypothyroidism Code(s): E03.9 - HYPOTHYROIDISM, UNSPECIFIED Qualifiers: Hypothyroidism type: acquired Qualified Code(s): E03.9 - Hypothyroidism, unspecified (8) Anemia Code(s): D64.9 - ANEMIA, UNSPECIFIED Qualifiers: Chronic kidney disease stage: unspecified stage (9) Troponin I above reference range Code(s): R74.8 - ABNORMAL LEVELS OF OTHER SERUM ENZYMES
[2018-11-05] MEDS: VANCOMYCIN 1 GRAM (PRE-DOCKED) 1,000 MG/250 ML BAG IVPB SCH ×3 (00:19→22:41)
[2018-11-05] MEDS ORDERED: CEFEPIME HCL 1 GM VIAL (RESTRICTED TO ID) ONE ×3 (02:48→17:47)
[2018-11-05] MEDS ORDERED: DEXTROSE 5%-WATER 100 ML IVPB ONE ×3 (02:48→17:47)
[2018-11-05] MEDS: CEFEPIME 1 GM in DEXTROSE 5%-WATER 100 ML IVPB SCH ×3 (02:51→17:50)
[2018-11-05] MEDS ORDERED: PT OWN MED DRAWER 7, Y5N ONE ×2 (06:02→07:55)
[2018-11-05] MEDS: LEVOTHYROXINE NA 50 MCG TABLET (FP) PO SCH (06:13)
[2018-11-05 06:48] LABS: BASO % 0.1 % (0-2.0); HEMATOCRIT 28.2 % (32.4-45.2); HEMOGLOBIN 9.5 GM/dL (10.7-15.3); LYMPH % 5.1 % (8-40); MCH 30.7 pg (25.7-33.7); MCHC 33.6 g/dl (32.0-36.0); MEAN CELL VOLUME 91.5 fl (80-96); MEAN PLT VOLUME 8.3 fl (7.5-11.1); NEUT % 89.8 % (42.8-82.8); PLATELET COUNT 141 K/MM3 (134-434); RBC 3.08 M/mm3 (3.60-5.2); RDW 16.3 % (11.6-15.6); WHITE BLOOD COUNT 8.9 K/mm3 (4.0-10.0)
[2018-11-05 07:42] LABS: ALBUMIN 1.2 g/dl (3.4-5.0); ALK PHOS 51 U/L (45-117); ANION GAP 9 MMOL/L (8-16); BILIRUBIN,TOTAL 0.2 mg/dL (0.2-1); BLOOD UREA NITROGEN 26 mg/dL (7-18); CALCIUM 8.6 mg/dL (8.5-10.1); CHLORIDE 104 mmol/L (98-107); CO2 24 mmol/L (21-32); CREATININE 1.1 mg/dL (0.55-1.3); GLUCOSE,RANDOM 120 mg/dL (74-106); POTASSIUM 3.9 mmol/L (3.5-5.1); SGOT/AST 10 U/L (15-37); SGPT/ALT 10 U/L (13-61); SODIUM 138 mmol/L (136-145)
[2018-11-05] MEDS: ATOVAQUONE 750 MG/5 ML (UNIT-DOSE PACKAGING) PO SCH (08:05)
[2018-11-05] MEDS: PANTOPRAZOLE 40 MG TABLET (FP) PO SCH (09:12)
[2018-11-05] MEDS: POLYETHYLENE GLYCOL 3350 119 GM BTL PO SCH (09:12)
[2018-11-05] MEDS: valACYclovir HCL 500 MG TABLET (FP) PO SCH (09:12)
[2018-11-05] MEDS: ALLOPURINOL 300 MG TABLET (FP) PO SCH (09:12)
[2018-11-05 10:57] LABS: INR 1.09 (0.83-1.09); PROTHROMBIN TIME (PATIENT) 12.9 SEC (9.7-13.0)
[2018-11-05 11:00] LABS: ACTIVATED PTT 38.7 SECONDS (25.2-36.5)
--- NOTE | 2018-11-05 12:05 | PN ---
Progress Note (short form) - Note Progress Note: In bed in NAD Denies any complaints Vital Signs Period Temp Pulse Resp BP Sys/Moss Pulse Ox Last 24 Hr 97.3 F-98.8 F 87-110 18-20 124-140/68-84 98-99 PE: AOx3 Neck: Supple, No JVD HEENT: EOMI Lungs: CTA CVS: S1S2 Abd: Benign EXT: No edema Neuro: No focal deficit CMP Sodium 138 mmol/L (136-145) 11/05/18 05:15 Potassium 3.9 mmol/L (3.5-5.1) 11/05/18 05:15 Chloride 104 mmol/L (98-107) 11/05/18 05:15 Carbon Dioxide 24 mmol/L (21-32) 11/05/18 05:15 Anion Gap 9 MMOL/L (8-16) 11/05/18 05:15 BUN 26 mg/dL (7-18) H 11/05/18 05:15 Creatinine 1.1 mg/dL (0.55-1.3) 11/05/18 05:15 Creat Clearance w eGFR 48.55 (>60) 11/05/18 05:15 Random Glucose 120 mg/dL (74-106) H 11/05/18 05:15 Lactic Acid 1.7 mmol/L (0.4-2.0) 10/27/18 12:30 Uric Acid 3.3 mg/dL (2.6-7.2) 11/04/18 05:00 Calcium 8.6 mg/dL (8.5-10.1) 11/05/18 05:15 Phosphorus 3.6 mg/dL (2.5-4.9) 10/27/18 12:30 Magnesium 2.2 mg/dL (1.8-2.4) 10/27/18 12:30 Total Bilirubin 0.2 mg/dL (0.2-1) 11/05/18 05:15 AST 10 U/L (15-37) L 11/05/18 05:15 ALT 10 U/L (13-61) L 11/05/18 05:15 Alkaline Phosphatase 51 U/L (45-117) 11/05/18 05:15 LD Total 148 U/L (84-246) 11/04/18 05:00 Creatine Kinase 146 IU/L (26-192) 10/30/18 10:35 Troponin I 0.23 ng/ml (0.00-0.05) H 10/30/18 10:35 Total Protein 8.0 g/dl (6.4-8.2) 11/05/18 05:15 Albumin 1.2 g/dl (3.4-5.0) L 11/05/18 05:15 TSH 11.00 uIU/ml (0.358-3.74) H 11/05/18 05:15 Free T4 0.55 ng/dl (0.76-1.46) L 10/28/18 05:30 Current Medications Generic Name Dose Route Start Last Admin Trade Name Freq PRN Reason Stop Dose Admin Acetaminophen 650 mg 11/02/18 02:34 11/03/18 16:49 Tylenol - PO 650 mg Q6H PRN Administration FEVER Allopurinol 300 mg 10/29/18 12:30 11/05/18 09:12 Zyloprim - PO 300 mg DAILY [facility] Administration Atorvastatin Calcium 40 mg 10/28/18 22:00 11/04/18 21:53 Lipitor - PO 40 mg HS [facility] Administration Atovaquone 1,500 mg 11/02/18 08:00 11/05/18 08:05 Mepron - PO 1,500 mg DAILY@0800 [facility] Administration Diltiazem HCl 240 mg 10/28/18 10:00 11/05/18 09:12 Cardizem Cd - PO 240 mg DAILY [facility] Administration Vancomycin HCl 1,000 mg in 250 mls @ 166.667 mls/hr 11/02/18 11:30 11/05/18 11:25 Vancomycin (Pre-Docked) IVPB 166.667 mls/hr Q12H [facility] Administration Protocol Cefepime HCl 1 gm/ Dextrose 100 mls @ 200 mls/hr 11/02/18 11:15 11/05/18 09: 09 IVPB 200 mls/hr Q8H-IV [facility] Administration Protocol Sodium Chloride 1,000 mls @ 42 mls/hr 11/04/18 14:00 11/04/18 15:04 Normal Saline - IV 42 mls/hr ASDIR [facility] Administration Levothyroxine Sodium 50 mcg 11/01/18 07:00 11/05/18 06:13 Synthroid - PO 50 mcg DAILY@0700 [facility] Administration Pantoprazole Sodium 40 mg 11/03/18 10:00 11/05/18 09:12 Protonix - PO 40 mg DAILY [facility] Administration Polyethylene Glycol 17 gm 11/03/18 13:45 11/05/18 09:12 Miralax (For Daily Use) - PO 17 grams DAILY [facility] Administration Valacyclovir HCl 500 mg 11/01/18 19:45 11/05/18 09:12 Valtrex - PO 500 mg DAILY [facility] Administration AP: Hypothyroidism: Rpt TSH 11 down from 25,8 and 10.1 FT4 0.55 TPO 18 WNL Continue LT4 50mcg for now, to be given at 5 AM. Rpt TSH in 4 to 5 weeks and adjust dose as necessary Multiple Myeloma HTN HLD Anemia
[2018-11-05] MEDS ORDERED: PROPOFOL 20 ML ONE (14:36)
[2018-11-05] MEDS ORDERED: LIDOCAINE HCL/PF 2% SDV 5ML VIAL ONE (14:37)
[2018-11-05] MEDS ORDERED: LIDOCAINE HCL 1%, 10 MG/ML (20ML VIAL) ONE (14:38)
--- NOTE | 2018-11-05 14:44 | PN ---
Progress Note, Physician History of Present Illness: Pt seen and examined at bedside. She is awake and alert. She denies shortness of breath. She is going for abdominal fat pad biopsy. - Current Medication List Current Medications: Active Medications Acetaminophen (Tylenol -) 650 mg PO Q6H PRN PRN Reason: FEVER Last Admin: 11/03/18 16:49 Dose: 650 mg Allopurinol (Zyloprim -) 300 mg PO DAILY [facility] Last Admin: 11/05/18 09:12 Dose: 300 mg Atorvastatin Calcium (Lipitor -) 40 mg PO HS [facility] Last Admin: 11/04/18 21:53 Dose: 40 mg Atovaquone (Mepron -) 1,500 mg PO DAILY@0800 [facility] Last Admin: 11/05/18 08:05 Dose: 1,500 mg Diltiazem HCl (Cardizem Cd -) 240 mg PO DAILY [facility] Last Admin: 11/05/18 09:12 Dose: 240 mg Vancomycin HCl (Vancomycin (Pre-Docked)) 1,000 mg in 250 mls @ 166.667 mls/hr IVPB Q12H [facility]; Protocol Last Admin: 11/05/18 11:25 Dose: 166.667 mls/hr Cefepime HCl 1 gm/ Dextrose 100 mls @ 200 mls/hr IVPB Q8H-IV [facility]; Protocol Last Admin: 11/05/18 09:09 Dose: 200 mls/hr Sodium Chloride (Normal Saline -) 1,000 mls @ 42 mls/hr IV ASDIR [facility] Last Admin: 11/04/18 15:04 Dose: 42 mls/hr Levothyroxine Sodium (Synthroid -) 50 mcg PO DAILY@0700 [facility] Last Admin: 11/05/18 06:13 Dose: 50 mcg Pantoprazole Sodium (Protonix -) 40 mg PO DAILY [facility] Last Admin: 11/05/18 09:12 Dose: 40 mg Polyethylene Glycol (Miralax (For Daily Use) -) 17 gm PO DAILY [facility] Last Admin: 11/05/18 09:12 Dose: 17 grams Valacyclovir HCl (Valtrex -) 500 mg PO DAILY [facility] Last Admin: 11/05/18 09:12 Dose: 500 mg - Objective Vital Signs: Vital Signs Temperature 98.2 F 11/05/18 10:00 Pulse Rate 87 11/05/18 10:00 Respiratory Rate 20 11/05/18 10:00 Blood Pressure 127/70 11/05/18 10:00 O2 Sat by Pulse Oximetry (%) 98 11/05/18 09:00 Constitutional: Yes: Calm Eyes: Yes: Conjunctiva Clear HENT: Yes: Atraumatic Neck: Yes: Supple Cardiovascular: Yes: S1, S2 Respiratory: Yes: CTA Bilaterally Gastrointestinal: Yes: Soft Genitourinary: Yes: WNL Musculoskeletal: Yes: WNL Edema: No Neurological: Yes: Oriented Psychiatric: Yes: Oriented Labs: CBC, BMP 11/05/18 05:15 11/05/18 05:15 INR, PTT INR 1.09 (0.83-1.09) 11/05/18 10:22 Fibrinogen 401.0 mg/dL (238-498) 11/04/18 05:00 Problem List - Problems (1) Dehydration Code(s): E86.0 - DEHYDRATION (2) Hypothyroidism Code(s): E03.9 - HYPOTHYROIDISM, UNSPECIFIED Qualifiers: Hypothyroidism type: acquired Qualified Code(s): E03.9 - Hypothyroidism, unspecified (3) Multiple myeloma Code(s): C90.00 - MULTIPLE MYELOMA NOT HAVING ACHIEVED REMISSION Qualifiers: Multiple myeloma remission status: not in remission Qualified Code(s): C90.00 - Multiple myeloma not having achieved remission (4) Nausea Code(s): R11.0 - NAUSEA (5) Proteinuria Code(s): R80.9 - PROTEINURIA, UNSPECIFIED Qualifiers: Proteinuria type: persistent Qualified Code(s): R80.1 - Persistent proteinuria, unspecified Assessment/Plan Current Medications Generic Name Dose Route Start Last Admin Trade Name uMnirq PRN Reason Stop Dose Admin Acetaminophen 650 mg 11/02/18 02:34 11/03/18 16:49 Tylenol - PO 650 mg Q6H PRN Administration FEVER Allopurinol 300 mg 10/29/18 12:30 11/05/18 09:12 Zyloprim - PO 300 mg DAILY [facility] Administration Atorvastatin Calcium 40 mg 10/28/18 22:00 11/04/18 21:53 Lipitor - PO 40 mg HS [facility] Administration Atovaquone 1,500 mg 11/02/18 08:00 11/05/18 08:05 Mepron - PO 1,500 mg DAILY@0800 [facility] Administration Diltiazem HCl 240 mg 10/28/18 10:00 11/05/18 09:12 Cardizem Cd - PO 240 mg DAILY [facility] Administration Vancomycin HCl 1,000 mg in 250 mls @ 166.667 mls/hr 11/02/18 11:30 11/05/18 11:25 Vancomycin (Pre-Docked) IVPB 166.667 mls/hr Q12H [facility] Administration Protocol Cefepime HCl 1 gm/ Dextrose 100 mls @ 200 mls/hr 11/02/18 11:15 11/05/18 09: 09 IVPB 200 mls/hr Q8H-IV [facility] Administration Protocol Sodium Chloride 1,000 mls @ 42 mls/hr 11/04/18 14:00 11/04/18 15:04 Normal Saline - IV 42 mls/hr ASDIR [facility] Administration Levothyroxine Sodium 50 mcg 11/01/18 07:00 11/05/18 06:13 Synthroid - PO 50 mcg DAILY@0700 [facility] Administration Pantoprazole Sodium 40 mg 11/03/18 10:00 11/05/18 09:12 Protonix - PO 40 mg DAILY [facility] Administration Polyethylene Glycol 17 gm 11/03/18 13:45 11/05/18 09:12 Miralax (For Daily Use) - PO 17 grams DAILY [facility] Administration Valacyclovir HCl 500 mg 11/01/18 19:45 11/05/18 09:12 Valtrex - PO 500 mg DAILY [facility] Administration Impression 1. proteinuria 2. multiple myeloma 3. failure to thrive 4. dehydration 5. htn 6. HLD 7. hypothyroidism 8. elevated PTT 9. anemia 10. hyperkalemia Plan - cont fluids - monitor renal function - pt going for abd fat pad biopsy - follow cultures - abx per ID - repeat labs in am - monitor potassium - arb on hold - will follow
[2018-11-05] MEDS ORDERED: MIDAZOLAM HCL 2 MG/2 ML SINGLE DOSE VIAL ONE (14:51)
[2018-11-05] MEDS ORDERED: LIDOCAINE HCL 1%, 10 MG/ML (50 mL VIAL) IJ ONE (15:02)
[2018-11-05] MEDS ORDERED: ONDANSETRON 4 MG/2 ML VIAL IVPUSH PRN ×2 (15:29→16:41)
[2018-11-05] MEDS ORDERED: oxyCODONE HCL 5 MG TABLET PO PRN ×2 (15:29)
--- NOTE | 2018-11-05 15:29 | OP ---
Operative Note - Note: Operative Date: 11/05/18 Pre-Operative Diagnosis: proteinuria, multiple myeloma Operation: abdominal fat pad excisional biopsy Findings: 1 cm3 of abdominal fat excised from RUQ and sent as specimen Post-Operative Diagnosis: Same as Pre-op Surgeon: Lorne Schulte Anesthesiologist/COOLER SUPERVISOR: Addy Tuttle Anesthesia: Local (18ml 1% lidocaine), MAC Specimens Removed: portion of abdominal fat to pathology Estimated Blood Loss (mls): 1 Fluid Volume Replaced (mls): 100 (crystalloid) Operative Report Dictated: Yes
[2018-11-05] MEDS ORDERED: LACTATED RINGERS SOLUTION 1,000 ML IV SCH (15:30)
[2018-11-05] MEDS ORDERED: ACETAMINOPHEN 1000 MG/100 ML VIAL (NON FORMULARY) IVPB ONE (15:31)
[2018-11-05] MEDS ORDERED: ACETAMINOPHEN 325 MG TABLET (FP) PO PRN (15:33)
--- NOTE | 2018-11-05 16:31 | PN ---
Progress Note, Physician History of Present Illness: Patient with h/o proteinuria, multiple myeloma in OR for abdominal fat pad excisional biopsy r/o amyloid - Current Medication List Current Medications: Active Medications Acetaminophen (Tylenol -) 650 mg PO Q6H PRN PRN Reason: PAIN OR FEVER Allopurinol (Zyloprim -) 300 mg PO DAILY [facility] Last Admin: 11/05/18 09:12 Dose: 300 mg Atorvastatin Calcium (Lipitor -) 40 mg PO HS [facility] Last Admin: 11/04/18 21:53 Dose: 40 mg Atovaquone (Mepron -) 1,500 mg PO DAILY@0800 [facility] Last Admin: 11/05/18 08:05 Dose: 1,500 mg Diltiazem HCl (Cardizem Cd -) 240 mg PO DAILY [facility] Last Admin: 11/05/18 09:12 Dose: 240 mg Fentanyl (Sublimaze Injection -) 50 mcg IVPUSH [id number] PRN PRN Reason: PAIN-PACU ORDER X 4 DOSES ONLY Stop: 11/06/18 15:28 Vancomycin HCl (Vancomycin (Pre-Docked)) 1,000 mg in 250 mls @ 166.667 mls/hr IVPB Q12H [facility]; Protocol Last Admin: 11/05/18 11:25 Dose: 166.667 mls/hr Cefepime HCl 1 gm/ Dextrose 100 mls @ 200 mls/hr IVPB Q8H-IV [facility]; Protocol Last Admin: 11/05/18 09:09 Dose: 200 mls/hr Sodium Chloride (Normal Saline -) 1,000 mls @ 42 mls/hr IV ASDIR [facility] Last Admin: 11/04/18 15:04 Dose: 42 mls/hr Lactated Ringer's (Lactated Ringers Solution) 1,000 mls @ 125 mls/hr IV ASDIR [facility] Levothyroxine Sodium (Synthroid -) 50 mcg PO DAILY@0700 [facility] Last Admin: 11/05/18 06:13 Dose: 50 mcg Ondansetron HCl (Zofran Injection) 4 mg IVPUSH Q6H PRN PRN Reason: NAUSEA AND/OR VOMITING Stop: 11/06/18 15:28 Oxycodone HCl (Roxicodone -) 5 mg PO Q4H PRN PRN Reason: PAIN-PACU Stop: 11/06/18 15:28 Pantoprazole Sodium (Protonix -) 40 mg PO DAILY [facility] Last Admin: 11/05/18 09:12 Dose: 40 mg Polyethylene Glycol (Miralax (For Daily Use) -) 17 gm PO DAILY [facility] Last Admin: 11/05/18 09:12 Dose: 17 grams Valacyclovir HCl (Valtrex -) 500 mg PO DAILY [facility] Last Admin: 11/05/18 09:12 Dose: 500 mg - Objective Vital Signs: Vital Signs Temperature 98.2 F 11/05/18 10:00 Pulse Rate 87 11/05/18 10:00 Respiratory Rate 20 11/05/18 10:00 Blood Pressure 127/70 11/05/18 10:00 O2 Sat by Pulse Oximetry (%) 98 11/05/18 09:00 Constitutional: Yes: No Distress, Calm Neck: Yes: Supple Cardiovascular: Yes: Regular Rate and Rhythm Respiratory: Yes: Regular, CTA Bilaterally Gastrointestinal: Yes: Normal Bowel Sounds, Soft Edema: No Labs: CBC, BMP 11/05/18 05:15 11/05/18 05:15 INR, PTT INR 1.09 (0.83-1.09) 11/05/18 10:22 Fibrinogen 401.0 mg/dL (238-498) 11/04/18 05:00 Assessment/Plan - Problems (1) Anemia Code(s): D64.9 - ANEMIA, UNSPECIFIED (2) HLD (hyperlipidemia) Code(s): E78.5 - HYPERLIPIDEMIA, UNSPECIFIED (3) HTN (hypertension) Code(s): I10 - ESSENTIAL (PRIMARY) HYPERTENSION (4) Hypothyroidism Code(s): E03.9 - HYPOTHYROIDISM, UNSPECIFIED Qualifiers: Hypothyroidism type: acquired Qualified Code(s): E03.9 - Hypothyroidism, unspecified (5) Multiple myeloma Code(s): C90.00 - MULTIPLE MYELOMA NOT HAVING ACHIEVED REMISSION Qualifiers: Multiple myeloma remission status: unspecified Qualified Code(s): C90.00 - Multiple myeloma not having achieved remission (6) Elevated troponin Assessment/Plan: mild elevation likely due to demand ischemia, with multiple contributing factors , including systemic hematologic/oncologic process, anemia, CHF Stress Lexiscan MIBI negative for ischemia. Code(s): R74.8 - ABNORMAL LEVELS OF OTHER SERUM ENZYMES (7) Renal dysfunction Assessment/Plan: Increasing BUN/Cr with proteinuria, ARB on hold Avoid dehydration; IV and PO fluids. Code(s): N28.9 - DISORDER OF KIDNEY AND URETER, UNSPECIFIED
[2018-11-05] MEDS: SODIUM CHLORIDE 1,000 ML IV SCH (17:00)
--- NOTE | 2018-11-05 19:23 | PN ---
Progress Note, Physician - Current Medication List Current Medications: Active Medications Acetaminophen (Tylenol -) 650 mg PO Q6H PRN PRN Reason: PAIN OR FEVER Allopurinol (Zyloprim -) 300 mg PO DAILY [facility] Atorvastatin Calcium (Lipitor -) 40 mg PO HS [facility] Atovaquone (Mepron -) 1,500 mg PO DAILY@0800 [facility] Diltiazem HCl (Cardizem Cd -) 240 mg PO DAILY [facility] Cefepime HCl 1 gm/ Dextrose 100 mls @ 200 mls/hr IVPB Q8H-IV [facility]; Protocol Last Admin: 11/05/18 17:50 Dose: 200 mls/hr Sodium Chloride (Normal Saline -) 1,000 mls @ 42 mls/hr IV ASDIR [facility] Last Admin: 11/05/18 17:00 Dose: 0 mls Vancomycin HCl (Vancomycin (Pre-Docked)) 1,000 mg in 250 mls @ 166.667 mls/hr IVPB Q12H [facility]; Protocol Levothyroxine Sodium (Synthroid -) 50 mcg PO DAILY@0700 [facility] Ondansetron HCl (Zofran Injection) 4 mg IVPUSH Q6H PRN PRN Reason: NAUSEA AND/OR VOMITING Pantoprazole Sodium (Protonix -) 40 mg PO DAILY [facility] Polyethylene Glycol (Miralax (For Daily Use) -) 17 gm PO DAILY [facility] Valacyclovir HCl (Valtrex -) 500 mg PO DAILY [facility] - Objective Vital Signs: Vital Signs Temperature 98.3 F 11/05/18 17:25 Pulse Rate 79 11/05/18 17:25 Respiratory Rate 20 11/05/18 17:25 Blood Pressure 122/65 11/05/18 17:25 O2 Sat by Pulse Oximetry (%) 95 11/05/18 17:25 Labs: CBC, BMP 11/05/18 05:15 11/05/18 05:15 INR, PTT INR 1.09 (0.83-1.09) 11/05/18 10:22 Fibrinogen 401.0 mg/dL (238-498) 11/04/18 05:00 Problem List - Problems (1) Fever Code(s): R50.9 - FEVER, UNSPECIFIED (2) Multiple myeloma Code(s): C90.00 - MULTIPLE MYELOMA NOT HAVING ACHIEVED REMISSION Qualifiers: Multiple myeloma remission status: not in remission Qualified Code(s): C90.00 - Multiple myeloma not having achieved remission (3) Nausea Code(s): R11.0 - NAUSEA (4) Acute on chronic renal failure Code(s): N17.9 - ACUTE KIDNEY FAILURE, UNSPECIFIED; N18.9 - CHRONIC KIDNEY DISEASE, UNSPECIFIED Qualifiers: Chronic kidney disease stage: stage 2 (mild) (5) HTN (hypertension) Code(s): I10 - ESSENTIAL (PRIMARY) HYPERTENSION Qualifiers: Hypertension type: essential hypertension Qualified Code(s): I10 - Essential (primary) hypertension (6) HLD (hyperlipidemia) Code(s): E78.5 - HYPERLIPIDEMIA, UNSPECIFIED Qualifiers: Hyperlipidemia type: unspecified Qualified Code(s): E78.5 - Hyperlipidemia , unspecified (7) Hypothyroidism Code(s): E03.9 - HYPOTHYROIDISM, UNSPECIFIED Qualifiers: Hypothyroidism type: acquired Qualified Code(s): E03.9 - Hypothyroidism, unspecified (8) Anemia Code(s): D64.9 - ANEMIA, UNSPECIFIED Qualifiers: Chronic kidney disease stage: unspecified stage (9) Troponin I above reference range Code(s): R74.8 - ABNORMAL LEVELS OF OTHER SERUM ENZYMES
--- NOTE | 2018-11-05 19:59 | OP ---
DATE OF OPERATION: 11/05/2018 PREOPERATIVE DIAGNOSIS: Proteinuria and multiple myeloma. POSTOPERATIVE DIAGNOSIS: Proteinuria and multiple myeloma. PROCEDURE: Abdominal fat pad excisional biopsy. SURGEON: Lorne Schulte M.D. ANESTHESIA: Local, 18 mL of 1% lidocaine and MAC ESTIMATED BLOOD LOSS: 1 mL FLUIDS: 100 mL of crystalloid SPECIMEN: 1 cubic centimeter portion of abdominal fat to pathology for amyloid staining. FINDINGS: A portion of abdominal fat was excised from the right upper quadrant and sent for specimen. Hemostasis was complete. DISPOSITION: Stable and awake to PACU. INDICATION FOR PROCEDURE: The patient is a 73-year-old female with multiple medical problems including hypertension, asthma, renal insufficiency, and recently diagnosed progressive multiple myeloma who has started chemotherapy and is also noted to have nephrotic range proteinuria. She has paraprotein identified as well that means she has a functional coagulopathy and they have been unable to do renal biopsy to rule out amyloidosis, which has been suspected. Her INR and PTT have been brought down into the normal range, although today her PTT is 38.7, just slightly over normal, and her platelet count is above 100,000, but functionally she is still at risk for bleeding with a renal biopsy. Surgery was asked to evaluate for fat pad biopsy and she was seen yesterday in this capacity. Risks, benefits, and alternatives of an excisional biopsy of abdominal fat pad were discussed with the patient including but not limited to bleeding and infection and alternatives of no biopsy which potentially could risk inability to establish diagnosis. Patient is agreeable to the procedure and signed informed consent for the same. She is now brought to the OR for it. OPERATIVE TECHNIQUE: The patient was brought to the operating room and laid supine on the operating table. The patient already had BÁRBARA stockings on. Sequential compression devices were also applied to bilateral lower extremities, as she is on antibiotics on the floor, and this is a clean procedure, no additional antibiotics were given in the OR. After sedation by anesthesia, a portion of the right upper quadrant was prepped with ChloraPrep and draped in sterile fashion, and local anesthetic infiltrated over a line of radha-shaped area in the lower right upper quadrant of the abdomen utilizing 1% lidocaine a total of 18 mL as well as the anticipated incision line. A small transverse incision was made within this radha with scalpel and carried just beneath the skin into the subcutaneous fat. Electrocautery was used to achieve hemostasis from a couple of skin bleeders but was not yet used below skin level. An Allis clamp was used to grasp abdominal fat from just below this area and Metzenbaum scissors were used to sharply excise portion of the fat pad which in total measured approximately 1 cubic centimeter. This was passed off the table for pathology specimen. The area was packed with gauze and pressure applied for a couple of minutes, and hemostasis was then achieved using small retractors to visualize the field with electrocautery until there was no bleeding visualized in the entire cavity. Erasmo fascia was reapproximated with 4-0 Vicryl interrupted suture, and the skin was closed with 4-0 Vicryl running subcuticular suture. The skin was cleansed, and Dermabond applied as the final dressing. The patient was awakened by anesthesia with the sedation lifted and as the procedure was actually performed on the patient's bed she was then brought back to the recovery room in stable condition having tolerated the procedure well. Counts were correct at the end of the procedure. Sharyn Amanda/[id number]
[2018-11-05] MEDS: ATORVASTATIN CA 40 MG TABLET (FP) PO SCH (22:41)
[2018-11-05] MEDS: ACETAMINOPHEN 325 MG TABLET (FP) PO PRN (22:48)
[2018-11-06] MEDS ORDERED: CEFEPIME HCL 1 GM VIAL (RESTRICTED TO ID) ONE ×3 (01:00→16:37)
[2018-11-06] MEDS ORDERED: DEXTROSE 5%-WATER 100 ML IVPB ONE ×3 (01:00→16:38)
[2018-11-06] MEDS: CEFEPIME 1 GM in DEXTROSE 5%-WATER 100 ML IVPB SCH ×3 (01:31→17:13)
[2018-11-06] MEDS: LEVOTHYROXINE NA 50 MCG TABLET (FP) PO SCH (06:00)
[2018-11-06] MEDS ORDERED: PT OWN MED DRAWER 7, Y5N ONE (07:48)
[2018-11-06] MEDS: ATOVAQUONE 750 MG/5 ML (UNIT-DOSE PACKAGING) PO SCH (08:52)
[2018-11-06] MEDS: ALLOPURINOL 300 MG TABLET (FP) PO SCH (09:10)
[2018-11-06] MEDS: valACYclovir HCL 500 MG TABLET (FP) PO SCH (09:11)
[2018-11-06] MEDS: PANTOPRAZOLE 40 MG TABLET (FP) PO SCH (09:11)
[2018-11-06] MEDS: POLYETHYLENE GLYCOL 3350 119 GM BTL PO SCH (09:25)
[2018-11-06] MEDS: VANCOMYCIN 1 GRAM (PRE-DOCKED) 1,000 MG/250 ML BAG IVPB SCH (11:30)
--- NOTE | 2018-11-06 14:06 | PN ---
Progress Note, Physician History of Present Illness: S/P biopsy No c/o pain Afebrile Cultures negative CXR no new infiltrate Flu swab (-) - Current Medication List Current Medications: Active Medications Acetaminophen (Tylenol -) 650 mg PO Q6H PRN PRN Reason: PAIN OR FEVER Last Admin: 11/05/18 22:48 Dose: 650 mg Allopurinol (Zyloprim -) 300 mg PO DAILY [facility] Last Admin: 11/06/18 09:10 Dose: 300 mg Atorvastatin Calcium (Lipitor -) 40 mg PO HS [facility] Last Admin: 11/05/18 22:41 Dose: 40 mg Atovaquone (Mepron -) 1,500 mg PO DAILY@0800 [facility] Last Admin: 11/06/18 08:52 Dose: 1,500 mg Diltiazem HCl (Cardizem Cd -) 240 mg PO DAILY [facility] Last Admin: 11/06/18 09:10 Dose: 240 mg Cefepime HCl 1 gm/ Dextrose 100 mls @ 200 mls/hr IVPB Q8H-IV [facility]; Protocol Last Admin: 11/06/18 09:05 Dose: 200 mls/hr Sodium Chloride (Normal Saline -) 1,000 mls @ 42 mls/hr IV ASDIR [facility] Last Admin: 11/05/18 17:00 Dose: 0 mls Levothyroxine Sodium (Synthroid -) 50 mcg PO DAILY@0700 [facility] Last Admin: 11/06/18 06:00 Dose: 50 mcg Ondansetron HCl (Zofran Injection) 4 mg IVPUSH Q6H PRN PRN Reason: NAUSEA AND/OR VOMITING Pantoprazole Sodium (Protonix -) 40 mg PO DAILY [facility] Last Admin: 11/06/18 09:11 Dose: 40 mg Polyethylene Glycol (Miralax (For Daily Use) -) 17 gm PO DAILY [facility] Last Admin: 11/06/18 09:25 Dose: 17 gm Valacyclovir HCl (Valtrex -) 500 mg PO DAILY [facility] Last Admin: 11/06/18 09:11 Dose: 500 mg - Objective Vital Signs: Vital Signs Temperature 98.2 F 11/06/18 08:58 Pulse Rate 99 H 11/06/18 08:58 Respiratory Rate 18 11/06/18 08:58 Blood Pressure 105/68 11/06/18 08:58 O2 Sat by Pulse Oximetry (%) 97 11/06/18 08:59 Constitutional: Yes: No Distress Cardiovascular: Yes: Regular Rate and Rhythm, S1, S2 Respiratory: Yes: CTA Bilaterally Gastrointestinal: Yes: Normal Bowel Sounds, Soft. No: Tenderness Labs: CBC, BMP 11/05/18 05:15 11/05/18 05:15 INR, PTT INR 1.09 (0.83-1.09) 11/05/18 10:22 Fibrinogen 401.0 mg/dL (238-498) 11/04/18 05:00 Assessment/Plan Fever ? source Remains afebrile Leukopenia/ neutropenia improved Hx Myeloma PCN allergy Cultures no growth Continue cefepime D/C vancomycin
[2018-11-06] MEDS: ACETAMINOPHEN 325 MG TABLET (FP) PO PRN (16:58)
[2018-11-06] MEDS: SODIUM CHLORIDE 1,000 ML IV SCH (17:06)
--- NOTE | 2018-11-06 18:14 | PN ---
Progress Note, Physician - Current Medication List Current Medications: Active Medications Acetaminophen (Tylenol -) 650 mg PO Q6H PRN PRN Reason: PAIN OR FEVER Last Admin: 11/06/18 16:58 Dose: 650 mg Allopurinol (Zyloprim -) 300 mg PO DAILY [facility] Last Admin: 11/06/18 09:10 Dose: 300 mg Atorvastatin Calcium (Lipitor -) 40 mg PO HS [facility] Last Admin: 11/05/18 22:41 Dose: 40 mg Atovaquone (Mepron -) 1,500 mg PO DAILY@0800 [facility] Last Admin: 11/06/18 08:52 Dose: 1,500 mg Diltiazem HCl (Cardizem Cd -) 240 mg PO DAILY [facility] Last Admin: 11/06/18 09:10 Dose: 240 mg Cefepime HCl 1 gm/ Dextrose 100 mls @ 200 mls/hr IVPB Q8H-IV [facility]; Protocol Last Admin: 11/06/18 17:13 Dose: 200 mls/hr Sodium Chloride (Normal Saline -) 1,000 mls @ 42 mls/hr IV ASDIR [facility] Last Admin: 11/06/18 17:06 Dose: 42 mls/hr Levothyroxine Sodium (Synthroid -) 50 mcg PO DAILY@0700 [facility] Last Admin: 11/06/18 06:00 Dose: 50 mcg Ondansetron HCl (Zofran Injection) 4 mg IVPUSH Q6H PRN PRN Reason: NAUSEA AND/OR VOMITING Pantoprazole Sodium (Protonix -) 40 mg PO DAILY [facility] Last Admin: 11/06/18 09:11 Dose: 40 mg Polyethylene Glycol (Miralax (For Daily Use) -) 17 gm PO DAILY [facility] Last Admin: 11/06/18 09:25 Dose: 17 gm Valacyclovir HCl (Valtrex -) 500 mg PO DAILY [facility] Last Admin: 11/06/18 09:11 Dose: 500 mg - Objective Vital Signs: Vital Signs Temperature 99.6 F 11/06/18 14:31 Pulse Rate 89 11/06/18 14:31 Respiratory Rate 18 11/06/18 14:31 Blood Pressure 109/58 L 11/06/18 14:31 O2 Sat by Pulse Oximetry (%) 97 11/06/18 08:59 Labs: CBC, BMP 11/05/18 05:15 11/05/18 05:15 INR, PTT INR 1.09 (0.83-1.09) 11/05/18 10:22 Fibrinogen 401.0 mg/dL (238-498) 11/04/18 05:00 Problem List - Problems (1) Fever Code(s): R50.9 - FEVER, UNSPECIFIED (2) Multiple myeloma Code(s): C90.00 - MULTIPLE MYELOMA NOT HAVING ACHIEVED REMISSION Qualifiers: Multiple myeloma remission status: not in remission Qualified Code(s): C90.00 - Multiple myeloma not having achieved remission (3) Nausea Code(s): R11.0 - NAUSEA (4) Acute on chronic renal failure Code(s): N17.9 - ACUTE KIDNEY FAILURE, UNSPECIFIED; N18.9 - CHRONIC KIDNEY DISEASE, UNSPECIFIED Qualifiers: Chronic kidney disease stage: stage 2 (mild) (5) HTN (hypertension) Code(s): I10 - ESSENTIAL (PRIMARY) HYPERTENSION Qualifiers: Hypertension type: essential hypertension Qualified Code(s): I10 - Essential (primary) hypertension (6) HLD (hyperlipidemia) Code(s): E78.5 - HYPERLIPIDEMIA, UNSPECIFIED Qualifiers: Hyperlipidemia type: unspecified Qualified Code(s): E78.5 - Hyperlipidemia , unspecified (7) Hypothyroidism Code(s): E03.9 - HYPOTHYROIDISM, UNSPECIFIED Qualifiers: Hypothyroidism type: acquired Qualified Code(s): E03.9 - Hypothyroidism, unspecified (8) Anemia Code(s): D64.9 - ANEMIA, UNSPECIFIED Qualifiers: Chronic kidney disease stage: unspecified stage (9) Troponin I above reference range Code(s): R74.8 - ABNORMAL LEVELS OF OTHER SERUM ENZYMES
--- NOTE | 2018-11-06 18:49 | PN ---
Progress Note (short form) - Note Progress Note: Patient seen in follow up. No new complaints. No acute events overnight. Underwent fat biopsy yesterday. Inpatient Meds reviewed. Current Medications Generic Name Dose Route Start Last Admin Trade Name Freq PRN Reason Stop Dose Admin Acetaminophen 650 mg 11/05/18 16:41 11/06/18 16:58 Tylenol - PO 650 mg Q6H PRN Administration PAIN OR FEVER Allopurinol 300 mg 11/06/18 10:00 11/06/18 09:10 Zyloprim - PO 300 mg DAILY [facility] Administration Atorvastatin Calcium 40 mg 11/05/18 22:00 11/05/18 22:41 Lipitor - PO 40 mg HS [facility] Administration Atovaquone 1,500 mg 11/06/18 08:00 11/06/18 08:52 Mepron - PO 1,500 mg DAILY@0800 [facility] Administration Diltiazem HCl 240 mg 11/06/18 10:00 11/06/18 09:10 Cardizem Cd - PO 240 mg DAILY [facility] Administration Cefepime HCl 1 gm/ Dextrose 100 mls @ 200 mls/hr 11/05/18 18:00 11/06/18 17: 13 IVPB 200 mls/hr Q8H-IV [facility] Administration Protocol Sodium Chloride 1,000 mls @ 42 mls/hr 11/05/18 16:41 11/06/18 17:06 Normal Saline - IV 42 mls/hr ASDIR [facility] Administration Levothyroxine Sodium 50 mcg 11/06/18 07:00 11/06/18 06:00 Synthroid - PO 50 mcg DAILY@0700 [facility] Administration Ondansetron HCl 4 mg 11/05/18 16:41 Zofran Injection IVPUSH Q6H PRN NAUSEA AND/OR VOMITING Pantoprazole Sodium 40 mg 11/06/18 10:00 11/06/18 09:11 Protonix - PO 40 mg DAILY [facility] Administration Polyethylene Glycol 17 gm 11/06/18 10:00 11/06/18 09:25 Miralax (For Daily Use) - PO 17 gm DAILY [facility] Administration Valacyclovir HCl 500 mg 11/06/18 10:00 11/06/18 09:11 Valtrex - PO 500 mg DAILY [facility] Administration On Examination: Last Vital Signs Temp Pulse Resp BP Pulse Ox 99.6 F 89 18 109/58 L 97 11/06/18 14:31 11/06/18 14:11/06/18 14:11/06/18 14:11/06/18 08:59 General: In no acute distress, lying comfortably in bed. Extremities: No pallor or icterus. No pedal edema. No palpable lymphadenopathy. Chest: breathing comfortably Abdomen: Non-distended, non-tender, no palpable organomegaly, scar of recent biopsy, ecchymoses at prior SQ injection sites.. Neuro: Alert, oriented, non-focal. Labs: CBC, BMP 11/05/18 05:15 11/05/18 05:15 Assessment. IgA myeloma, with anemia and proteinuria (normal creatinine). Untreated previously. Started treatment with Velcade/Dex - 1st dose on 10/14. Mild coagulopathy - possible factor X/amyloid related - holding off on renal biopsy pending resolution - improving. Isolated fevers night of 11/01 and then again 11/03/18. Not neutropenic, cultures negative. On empiric cefepime - ID following.
[2018-11-06] MEDS: ATORVASTATIN CA 40 MG TABLET (FP) PO SCH (21:33)
--- NOTE | 2018-11-06 21:52 | PN ---
Progress Note, Physician Chief Complaint: abdominal wall thickening History of Present Illness: 73yo female PMH multiple myeloma and other medical issues, s/p multiple abdominal surgeries, admitted last week with N/V, lethargy, weakness prior to 3rd chemotherapy. s/p abdominal wall biopsy. stable postopertively - Current Medication List Current Medications: Active Medications Acetaminophen (Tylenol -) 650 mg PO Q6H PRN PRN Reason: PAIN OR FEVER Last Admin: 11/06/18 16:58 Dose: 650 mg Allopurinol (Zyloprim -) 300 mg PO DAILY [facility] Last Admin: 11/06/18 09:10 Dose: 300 mg Atorvastatin Calcium (Lipitor -) 40 mg PO HS [facility] Last Admin: 11/06/18 21:33 Dose: 40 mg Atovaquone (Mepron -) 1,500 mg PO DAILY@0800 [facility] Last Admin: 11/06/18 08:52 Dose: 1,500 mg Diltiazem HCl (Cardizem Cd -) 240 mg PO DAILY [facility] Last Admin: 11/06/18 09:10 Dose: 240 mg Cefepime HCl 1 gm/ Dextrose 100 mls @ 200 mls/hr IVPB Q8H-IV [facility]; Protocol Last Admin: 11/06/18 17:13 Dose: 200 mls/hr Sodium Chloride (Normal Saline -) 1,000 mls @ 42 mls/hr IV ASDIR [facility] Last Admin: 11/06/18 17:06 Dose: 42 mls/hr Levothyroxine Sodium (Synthroid -) 50 mcg PO DAILY@0700 [facility] Last Admin: 11/06/18 06:00 Dose: 50 mcg Ondansetron HCl (Zofran Injection) 4 mg IVPUSH Q6H PRN PRN Reason: NAUSEA AND/OR VOMITING Pantoprazole Sodium (Protonix -) 40 mg PO DAILY [facility] Last Admin: 11/06/18 09:11 Dose: 40 mg Polyethylene Glycol (Miralax (For Daily Use) -) 17 gm PO DAILY [facility] Last Admin: 11/06/18 09:25 Dose: 17 gm Valacyclovir HCl (Valtrex -) 500 mg PO DAILY [facility] Last Admin: 11/06/18 09:11 Dose: 500 mg - Objective Vital Signs: Vital Signs Temperature 99.6 F 11/06/18 14:31 Pulse Rate 89 11/06/18 14:31 Respiratory Rate 18 11/06/18 14:31 Blood Pressure 109/58 L 11/06/18 14:31 O2 Sat by Pulse Oximetry (%) 97 11/06/18 08:59 Constitutional: Yes: Well Nourished, No Distress, Calm Eyes: Yes: Conjunctiva Clear, EOM Intact HENT: Yes: Atraumatic, Normocephalic Neck: Yes: Supple, Trachea Midline Cardiovascular: Yes: Regular Rate and Rhythm, S1, S2 Respiratory: Yes: Regular, CTA Bilaterally Gastrointestinal: Yes: Normal Bowel Sounds, Soft. No: Tenderness, Tenderness, Epigastrium, Tenderness, Rebound ...Rectal Exam: Yes: Deferred Genitourinary: No: CVA Tenderness - Left, CVA Tenderness - Right Breast(s): No: Breast Implants, Dimpling, Discharge from Nipple Musculoskeletal: No: Muscle Pain, Muscle Weakness Extremities: No: Cool, Cyanosis Edema: No Peripheral Pulses WNL: Yes Peripheral Pulses: Left Radial: 2+, Right Radial: 2+, Left Doralis Pedis: 2+, Right Dorsalis Pedis: 2+, Left Femoral: 2+, Right Femoral: 2+ Integumentary: No: Jaundice, Pressure Ulcer Wound/Incision: Yes: Clean/Dry, Well Approximated, Sutures Intact, Other ( dermabond in place). No: Draining, Reddened, Bleeding Neurological: Yes: Alert, Oriented Psychiatric: Yes: Alert, Oriented Labs: CBC, BMP 11/05/18 05:15 11/05/18 05:15 INR, PTT INR 1.09 (0.83-1.09) 11/05/18 10:22 Fibrinogen 401.0 mg/dL (238-498) 11/04/18 05:00 Problem List - Problems (1) Gastric wall thickening Assessment/Plan: POD#1 s/p abdominal wall biospy, wound is clean and dry with intact dermabond management per primary team may shower f/u biopsy result Dr. Schulte will follow Code(s): K31.89 - OTHER DISEASES OF STOMACH AND DUODENUM (2) ASHD (arteriosclerotic heart disease) Code(s): I25.10 - ATHSCL HEART DISEASE OF [place] CORONARY ARTERY W/O ANG PCTRS (3) Factor X deficiency Code(s): D68.2 - HEREDITARY DEFICIENCY OF OTHER CLOTTING FACTORS (4) HLD (hyperlipidemia) Code(s): E78.5 - HYPERLIPIDEMIA, UNSPECIFIED Qualifiers: Hyperlipidemia type: unspecified Qualified Code(s): E78.5 - Hyperlipidemia , unspecified (5) HTN (hypertension) Code(s): I10 - ESSENTIAL (PRIMARY) HYPERTENSION Qualifiers: Hypertension type: essential hypertension Qualified Code(s): I10 - Essential (primary) hypertension (6) Hypothyroidism Code(s): E03.9 - HYPOTHYROIDISM, UNSPECIFIED Qualifiers: Hypothyroidism type: acquired Qualified Code(s): E03.9 - Hypothyroidism, unspecified
--- NOTE | 2018-11-06 23:16 | PN ---
Progress Note (short form) - Note Progress Note: Problems 1. proteinuria 2. multiple myeloma 3. failure to thrive 4. dehydration 5. htn 6. HLD 7. hypothyroidism 8. elevated PTT 9. anemia 10. hyperkalemia Current Medications Acetaminophen (Tylenol -) 650 mg PO Q6H PRN PRN Reason: PAIN OR FEVER Last Admin: 11/06/18 16:58 Dose: 650 mg Allopurinol (Zyloprim -) 300 mg PO DAILY [facility] Last Admin: 11/06/18 09:10 Dose: 300 mg Atorvastatin Calcium (Lipitor -) 40 mg PO HS [facility] Last Admin: 11/06/18 21:33 Dose: 40 mg Atovaquone (Mepron -) 1,500 mg PO DAILY@0800 [facility] Last Admin: 11/06/18 08:52 Dose: 1,500 mg Diltiazem HCl (Cardizem Cd -) 240 mg PO DAILY [facility] Last Admin: 11/06/18 09:10 Dose: 240 mg Cefepime HCl 1 gm/ Dextrose 100 mls @ 200 mls/hr IVPB Q8H-IV [facility]; Protocol Last Admin: 11/06/18 17:13 Dose: 200 mls/hr Sodium Chloride (Normal Saline -) 1,000 mls @ 42 mls/hr IV ASDIR [facility] Last Admin: 11/06/18 17:06 Dose: 42 mls/hr Levothyroxine Sodium (Synthroid -) 50 mcg PO DAILY@0700 [facility] Last Admin: 11/06/18 06:00 Dose: 50 mcg Ondansetron HCl (Zofran Injection) 4 mg IVPUSH Q6H PRN PRN Reason: NAUSEA AND/OR VOMITING Pantoprazole Sodium (Protonix -) 40 mg PO DAILY [facility] Last Admin: 11/06/18 09:11 Dose: 40 mg Polyethylene Glycol (Miralax (For Daily Use) -) 17 gm PO DAILY [facility] Last Admin: 11/06/18 09:25 Dose: 17 gm Valacyclovir HCl (Valtrex -) 500 mg PO DAILY [facility] Last Admin: 11/06/18 09:11 Dose: 500 mg Last Vital Signs Temp Pulse Resp BP Pulse Ox 99.6 F 89 18 109/58 L 97 11/06/18 14:31 11/06/18 14:31 11/06/18 14:31 11/06/18 14:31 11/06/18 08:59 CBC, BMP 11/05/18 05:15 11/05/18 05:15
[2018-11-07] MEDS ORDERED: DEXTROSE 5%-WATER 100 ML IVPB ONE ×3 (01:36→17:17)
[2018-11-07] MEDS ORDERED: CEFEPIME HCL 1 GM VIAL (RESTRICTED TO ID) ONE ×3 (01:36→17:17)
[2018-11-07] MEDS: CEFEPIME 1 GM in DEXTROSE 5%-WATER 100 ML IVPB SCH ×3 (01:44→17:35)
[2018-11-07] MEDS: ACETAMINOPHEN 325 MG TABLET (FP) PO PRN ×2 (05:42→22:38)
[2018-11-07] MEDS: LEVOTHYROXINE NA 50 MCG TABLET (FP) PO SCH (07:02)
[2018-11-07 08:26] LABS: HEMATOCRIT 26.8 % (32.4-45.2); HEMOGLOBIN 8.7 GM/dL (10.7-15.3); MCH 30.4 pg (25.7-33.7); MEAN CELL VOLUME 93.6 fl (80-96); RBC 2.87 M/mm3 (3.60-5.2); WHITE BLOOD COUNT 3.3 K/mm3 (4.0-10.0)
[2018-11-07 08:27] LABS: MCHC 32.5 g/dl (32.0-36.0); MEAN PLT VOLUME 8.7 fl (7.5-11.1); PLATELET COUNT 125 K/MM3 (134-434)
[2018-11-07 08:31] LABS: BASO % 0.7 % (0-2.0); EOS % 0.3 % (0-4.5); LYMPH % 32.8 % (8-40); MONO % 13.3 % (3.8-10.2); NEUT % 52.9 % (42.8-82.8)
[2018-11-07] MEDS: ALLOPURINOL 300 MG TABLET (FP) PO SCH (09:20)
[2018-11-07] MEDS: ATOVAQUONE 750 MG/5 ML (UNIT-DOSE PACKAGING) PO SCH (09:20)
[2018-11-07] MEDS: POLYETHYLENE GLYCOL 3350 119 GM BTL PO SCH (09:21)
[2018-11-07] MEDS: valACYclovir HCL 500 MG TABLET (FP) PO SCH (09:21)
[2018-11-07] MEDS: PANTOPRAZOLE 40 MG TABLET (FP) PO SCH (09:21)
[2018-11-07 12:32] LABS: ALBUMIN 1.1 g/dl (3.4-5.0); ALK PHOS 48 U/L (45-117); ANION GAP 7 MMOL/L (8-16); BILIRUBIN,TOTAL 0.2 mg/dL (0.2-1); BLOOD UREA NITROGEN 20 mg/dL (7-18); CALCIUM 8.4 mg/dL (8.5-10.1); CHLORIDE 107 mmol/L (98-107); CO2 24 mmol/L (21-32); CREATININE 1.1 mg/dL (0.55-1.3); GLUCOSE,RANDOM 79 mg/dL (74-106); POTASSIUM 4.1 mmol/L (3.5-5.1); SGOT/AST 9 U/L (15-37); SGPT/ALT 12 U/L (13-61); SODIUM 138 mmol/L (136-145); TOT PROT 7.1 g/dl (6.4-8.2)
[2018-11-07] MEDS: SODIUM CHLORIDE 1,000 ML IV SCH (17:39)
--- NOTE | 2018-11-07 18:28 | PN ---
Progress Note (short form) - Note Progress Note: Patient seen in follow up. No new complaints. Low grade temperature this morning - patient feels well - denies any symptoms at this time. Inpatient Meds reviewed. Current Medications Generic Name Dose Route Start Last Admin Trade Name Freq PRN Reason Stop Dose Admin Acetaminophen 650 mg 11/05/18 16:41 11/07/18 05:42 Tylenol - PO 650 mg Q6H PRN Administration PAIN OR FEVER Allopurinol 300 mg 11/06/18 10:00 11/07/18 09:20 Zyloprim - PO 300 mg DAILY [facility] Administration Atorvastatin Calcium 40 mg 11/05/18 22:00 11/06/18 21:33 Lipitor - PO 40 mg HS [facility] Administration Atovaquone 1,500 mg 11/06/18 08:00 11/07/18 09:20 Mepron - PO 1,500 mg DAILY@0800 [facility] Administration Diltiazem HCl 240 mg 11/06/18 10:00 11/07/18 09:20 Cardizem Cd - PO 240 mg DAILY [facility] Administration Cefepime HCl 1 gm/ Dextrose 100 mls @ 200 mls/hr 11/05/18 18:00 11/07/18 17: 35 IVPB 200 mls/hr Q8H-IV [facility] Administration Protocol Sodium Chloride 1,000 mls @ 42 mls/hr 11/05/18 16:41 11/07/18 17:39 Normal Saline - IV Not Given ASDIR [facility] Levothyroxine Sodium 50 mcg 11/06/18 07:00 11/07/18 07:02 Synthroid - PO 50 mcg DAILY@0700 [facility] Administration Ondansetron HCl 4 mg 11/05/18 16:41 Zofran Injection IVPUSH Q6H PRN NAUSEA AND/OR VOMITING Pantoprazole Sodium 40 mg 11/06/18 10:00 11/07/18 09:21 Protonix - PO 40 mg DAILY [facility] Administration Polyethylene Glycol 17 gm 11/06/18 10:00 11/07/18 09:21 Miralax (For Daily Use) - PO 17 gm DAILY [facility] Administration Valacyclovir HCl 500 mg 11/06/18 10:00 11/07/18 09:21 Valtrex - PO 500 mg DAILY [facility] Administration On Examination: Last Vital Signs Temp Pulse Resp BP Pulse Ox 99.6 F 91 H 18 115/59 L 97 11/07/18 18:07 11/07/18 18:07 11/07/18 18:07 11/07/18 18:07 11/07/18 09:00 General: In no acute distress, sitting at bedside eating lunch. Extremities: No pallor or icterus. No pedal edema. Chest: breathing comfortably Abdomen: Non-distended, non-tender. Neuro: Alert, oriented, non-focal. Labs: CBC, BMP 11/07/18 05:25 11/07/18 05:25 Assessment. IgA myeloma, with anemia and proteinuria (normal creatinine). Untreated previously. Started treatment with Velcade/Dex - 1st dose on 10/14. Mild coagulopathy - possible factor X/amyloid related - holding off on renal biopsy pending resolution - improving. Isolated occasional. Not neutropenic, cultures negative. On empiric cefepime - ID following.
[2018-11-07] MEDS: ATORVASTATIN CA 40 MG TABLET (FP) PO SCH (22:39)
--- NOTE | 2018-11-07 23:17 | PN ---
Progress Note (short form) - Note Progress Note: Problems 1. proteinuria 2. multiple myeloma 3. failure to thrive 4. dehydration 5. htn 6. HLD 7. hypothyroidism 8. elevated PTT 9. anemia 10. hyperkalemia Current Medications Acetaminophen (Tylenol -) 650 mg PO Q6H PRN PRN Reason: PAIN OR FEVER Last Admin: 11/07/18 22:38 Dose: 650 mg Allopurinol (Zyloprim -) 300 mg PO DAILY [facility] Last Admin: 11/07/18 09:20 Dose: 300 mg Atorvastatin Calcium (Lipitor -) 40 mg PO HS [facility] Last Admin: 11/07/18 22:39 Dose: 40 mg Atovaquone (Mepron -) 1,500 mg PO DAILY@0800 [facility] Last Admin: 11/07/18 09:20 Dose: 1,500 mg Diltiazem HCl (Cardizem Cd -) 240 mg PO DAILY [facility] Last Admin: 11/07/18 09:20 Dose: 240 mg Cefepime HCl 1 gm/ Dextrose 100 mls @ 200 mls/hr IVPB Q8H-IV [facility]; Protocol Last Admin: 11/07/18 17:35 Dose: 200 mls/hr Sodium Chloride (Normal Saline -) 1,000 mls @ 42 mls/hr IV ASDIR [facility] Last Admin: 11/07/18 17:39 Dose: Not Given Levothyroxine Sodium (Synthroid -) 50 mcg PO DAILY@0700 [facility] Last Admin: 11/07/18 07:02 Dose: 50 mcg Ondansetron HCl (Zofran Injection) 4 mg IVPUSH Q6H PRN PRN Reason: NAUSEA AND/OR VOMITING Pantoprazole Sodium (Protonix -) 40 mg PO DAILY [facility] Last Admin: 11/07/18 09:21 Dose: 40 mg Polyethylene Glycol (Miralax (For Daily Use) -) 17 gm PO DAILY [facility] Last Admin: 11/07/18 09:21 Dose: 17 gm Valacyclovir HCl (Valtrex -) 500 mg PO DAILY [facility] Last Admin: 11/07/18 09:21 Dose: 500 mg Last Vital Signs Temp Pulse Resp BP Pulse Ox 99.6 F 91 H 18 115/59 L 97 11/07/18 18:07 11/07/18 18:07 11/07/18 18:07 11/07/18 18:07 11/07/18 09:00 lungs clear heart reg ext no edema CBC, BMP 11/07/18 05:25 11/07/18 05:25 IMP- stable function r/o amyloidosis Plan- continue current management
--- NOTE | 2018-11-07 23:36 | PN ---
Progress Note, Physician History of Present Illness: No new complaints - Current Medication List Current Medications: Active Medications Acetaminophen (Tylenol -) 650 mg PO Q6H PRN PRN Reason: PAIN OR FEVER Last Admin: 11/07/18 22:38 Dose: 650 mg Allopurinol (Zyloprim -) 300 mg PO DAILY [facility] Last Admin: 11/07/18 09:20 Dose: 300 mg Atorvastatin Calcium (Lipitor -) 40 mg PO HS [facility] Last Admin: 11/07/18 22:39 Dose: 40 mg Atovaquone (Mepron -) 1,500 mg PO DAILY@0800 [facility] Last Admin: 11/07/18 09:20 Dose: 1,500 mg Diltiazem HCl (Cardizem Cd -) 240 mg PO DAILY [facility] Last Admin: 11/07/18 09:20 Dose: 240 mg Cefepime HCl 1 gm/ Dextrose 100 mls @ 200 mls/hr IVPB Q8H-IV [facility]; Protocol Last Admin: 11/07/18 17:35 Dose: 200 mls/hr Sodium Chloride (Normal Saline -) 1,000 mls @ 42 mls/hr IV ASDIR [facility] Last Admin: 11/07/18 17:39 Dose: Not Given Levothyroxine Sodium (Synthroid -) 50 mcg PO DAILY@0700 [facility] Last Admin: 11/07/18 07:02 Dose: 50 mcg Ondansetron HCl (Zofran Injection) 4 mg IVPUSH Q6H PRN PRN Reason: NAUSEA AND/OR VOMITING Pantoprazole Sodium (Protonix -) 40 mg PO DAILY [facility] Last Admin: 11/07/18 09:21 Dose: 40 mg Polyethylene Glycol (Miralax (For Daily Use) -) 17 gm PO DAILY [facility] Last Admin: 11/07/18 09:21 Dose: 17 gm Valacyclovir HCl (Valtrex -) 500 mg PO DAILY [facility] Last Admin: 11/07/18 09:21 Dose: 500 mg - Objective Vital Signs: Vital Signs Temperature 99.6 F 11/07/18 18:07 Pulse Rate 91 H 11/07/18 18:07 Respiratory Rate 18 11/07/18 18:07 Blood Pressure 115/59 L 11/07/18 18:07 O2 Sat by Pulse Oximetry (%) 97 11/07/18 09:00 Neck: Yes: WNL, Supple Cardiovascular: Yes: WNL, Regular Rate and Rhythm Respiratory: Yes: WNL, Regular, CTA Bilaterally Gastrointestinal: Yes: WNL, Normal Bowel Sounds, Soft Labs: CBC, BMP 11/07/18 05:25 11/07/18 05:25 INR, PTT INR 1.09 (0.83-1.09) 11/05/18 10:22 Fibrinogen 401.0 mg/dL (238-498) 11/04/18 05:00 Problem List - Problems (1) Fever Assessment/Plan: Follow cultures COnt cefepime Change to PO antibx as per ID Code(s): R50.9 - FEVER, UNSPECIFIED (2) Multiple myeloma Assessment/Plan: Chemotx as per onco S/P fat pad bx due to r/o amyloid deposits Code(s): C90.00 - MULTIPLE MYELOMA NOT HAVING ACHIEVED REMISSION Qualifiers: Multiple myeloma remission status: not in remission Qualified Code(s): C90.00 - Multiple myeloma not having achieved remission (3) Nausea Assessment/Plan: Multifactorial Due to chemotx Code(s): R11.0 - NAUSEA (4) Acute on chronic renal failure Assessment/Plan: Bun/creatinine improved Monitor labs Pt unable to get renal bx due to elevated PTT Code(s): N17.9 - ACUTE KIDNEY FAILURE, UNSPECIFIED; N18.9 - CHRONIC KIDNEY DISEASE, UNSPECIFIED Qualifiers: Chronic kidney disease stage: stage 2 (mild) (5) HTN (hypertension) Assessment/Plan: Cont to monitor BP Code(s): I10 - ESSENTIAL (PRIMARY) HYPERTENSION Qualifiers: Hypertension type: essential hypertension Qualified Code(s): I10 - Essential (primary) hypertension (6) HLD (hyperlipidemia) Assessment/Plan: Cont lipitor Code(s): E78.5 - HYPERLIPIDEMIA, UNSPECIFIED Qualifiers: Hyperlipidemia type: unspecified Qualified Code(s): E78.5 - Hyperlipidemia , unspecified (7) Hypothyroidism Code(s): E03.9 - HYPOTHYROIDISM, UNSPECIFIED Qualifiers: Hypothyroidism type: acquired Qualified Code(s): E03.9 - Hypothyroidism, unspecified (8) Anemia Assessment/Plan: S/P transfusion 1 unit PRBC's H/H remained stable today Multifactorial Code(s): D64.9 - ANEMIA, UNSPECIFIED Qualifiers: Chronic kidney disease stage: unspecified stage (9) Troponin I above reference range Code(s): R74.8 - ABNORMAL LEVELS OF OTHER SERUM ENZYMES
[2018-11-08] MEDS ORDERED: CEFEPIME HCL 1 GM VIAL (RESTRICTED TO ID) ONE ×2 (01:10→08:26)
[2018-11-08] MEDS ORDERED: DEXTROSE 5%-WATER 100 ML IVPB ONE ×2 (01:11→08:27)
[2018-11-08] MEDS: CEFEPIME 1 GM in DEXTROSE 5%-WATER 100 ML IVPB SCH ×2 (01:11→09:25)
[2018-11-08] MEDS: SODIUM CHLORIDE 1,000 ML IV SCH (01:13)
[2018-11-08] MEDS: LEVOTHYROXINE NA 50 MCG TABLET (FP) PO SCH (06:23)
[2018-11-08 07:24] LABS: INR 1.13 (0.83-1.09); PROTHROMBIN TIME (PATIENT) 13.3 SEC (9.7-13.0)
[2018-11-08 07:26] LABS: ACTIVATED PTT 37.4 SECONDS (25.2-36.5)
[2018-11-08 07:54] LABS: ALBUMIN 1.1 g/dl (3.4-5.0); ALK PHOS 48 U/L (45-117); ANION GAP 6 MMOL/L (8-16); BILIRUBIN,TOTAL 0.3 mg/dL (0.2-1); BLOOD UREA NITROGEN 16 mg/dL (7-18); CALCIUM 8.6 mg/dL (8.5-10.1); CHLORIDE 107 mmol/L (98-107); CO2 26 mmol/L (21-32); GLUCOSE,RANDOM 87 mg/dL (74-106); SGOT/AST 11 U/L (15-37); SGPT/ALT 12 U/L (13-61); SODIUM 139 mmol/L (136-145); TOT PROT 7.1 g/dl (6.4-8.2)
[2018-11-08 08:16] LABS: BASO % 0.6 % (0-2.0); EOS % 1.1 % (0-4.5); HEMATOCRIT 24.6 % (32.4-45.2); HEMOGLOBIN 8.7 GM/dL (10.7-15.3); LYMPH % 30.6 % (8-40); MCH 32.3 pg (25.7-33.7); MCHC 35.3 g/dl (32.0-36.0); MEAN CELL VOLUME 91.6 fl (80-96); MEAN PLT VOLUME 9.1 fl (7.5-11.1); MONO % 15.6 % (3.8-10.2); NEUT % 52.1 % (42.8-82.8); PLATELET COUNT 147 K/MM3 (134-434); RBC 2.69 M/mm3 (3.60-5.2); RDW 16.4 % (11.6-15.6); WHITE BLOOD COUNT 3.4 K/mm3 (4.0-10.0)
[2018-11-08] MEDS ORDERED: PT OWN MED DRAWER 7, Y5N ONE (08:26)
[2018-11-08] MEDS: PANTOPRAZOLE 40 MG TABLET (FP) PO SCH (09:25)
[2018-11-08] MEDS: valACYclovir HCL 500 MG TABLET (FP) PO SCH (09:25)
[2018-11-08] MEDS: ALLOPURINOL 300 MG TABLET (FP) PO SCH (09:25)
[2018-11-08] MEDS: ATOVAQUONE 750 MG/5 ML (UNIT-DOSE PACKAGING) PO SCH (09:25)
[2018-11-08] MEDS: POLYETHYLENE GLYCOL 3350 119 GM BTL PO SCH (09:26)
[2018-11-08 11:31] LABS: RATIO URIN PROTEIN/URIN CREAT 7.66 MG/DL
--- NOTE | 2018-11-08 12:35 | PN ---
Progress Note, Physician History of Present Illness: 73yo F with multiple myeloma and other medical issues, s/p multiple abdominal surgeries, admitted with N/V, lethargy, weakness prior to 3rd chemotherapy. She has since had subsequent cycles, and is feeling better than when admitted. She was recently in hospital before that, with diagnosis of myeloma progression leading to start of chemo. She has nephrotic range proteinuria, and amyloidosis is suspected, but with paraproteins, her bleeding risk has been too high to perform renal biopsy. Coagulopathy has since been corrected, though she may still have bleeding. Relative anemia is stable, platelets are above 100. Surgery was asked to evaluate for fat pad biopsy to evaluate for amyloid. She is seen and examined in bed, comfortable. About to have lunch, son is present. Reports + BM earlier. Denies pain from incision or in abdomen. - Current Medication List Current Medications: Active Medications Acetaminophen (Tylenol -) 650 mg PO Q6H PRN PRN Reason: PAIN OR FEVER Last Admin: 11/07/18 22:38 Dose: 650 mg Allopurinol (Zyloprim -) 300 mg PO DAILY [facility] Last Admin: 11/08/18 09:25 Dose: 300 mg Atorvastatin Calcium (Lipitor -) 40 mg PO HS [facility] Last Admin: 11/07/18 22:39 Dose: 40 mg Atovaquone (Mepron -) 1,500 mg PO DAILY@0800 [facility] Last Admin: 11/08/18 09:25 Dose: 1,500 mg Diltiazem HCl (Cardizem Cd -) 240 mg PO DAILY [facility] Last Admin: 11/08/18 09:33 Dose: 240 mg Cefepime HCl 1 gm/ Dextrose 100 mls @ 200 mls/hr IVPB Q8H-IV [facility]; Protocol Last Admin: 11/08/18 09:25 Dose: 200 mls/hr Sodium Chloride (Normal Saline -) 1,000 mls @ 42 mls/hr IV ASDIR [facility] Last Admin: 11/08/18 01:13 Dose: 42 mls/hr Levothyroxine Sodium (Synthroid -) 50 mcg PO DAILY@0700 [facility] Last Admin: 11/08/18 06:23 Dose: 50 mcg Ondansetron HCl (Zofran Injection) 4 mg IVPUSH Q6H PRN PRN Reason: NAUSEA AND/OR VOMITING Pantoprazole Sodium (Protonix -) 40 mg PO DAILY [facility] Last Admin: 11/08/18 09:25 Dose: 40 mg Phytonadione (Aqua Mephyton Injection -) 5 mg SQ DAILY [facility] Stop: 11/10/18 10:01 Polyethylene Glycol (Miralax (For Daily Use) -) 17 gm PO DAILY [facility] Last Admin: 11/08/18 09:26 Dose: Not Given Valacyclovir HCl (Valtrex -) 500 mg PO DAILY [facility] Last Admin: 11/08/18 09:25 Dose: 500 mg - Objective Vital Signs: Vital Signs Temperature 98.8 F 11/08/18 09:38 Pulse Rate 101 H 11/08/18 09:38 Respiratory Rate 18 11/08/18 09:38 Blood Pressure 121/63 11/08/18 09:38 O2 Sat by Pulse Oximetry (%) 99 11/07/18 21:00 Constitutional: Yes: Well Nourished, No Distress, Calm Eyes: Yes: Conjunctiva Clear, EOM Intact HENT: Yes: Atraumatic, Normocephalic Gastrointestinal: Yes: Soft. No: Distention, Tenderness Extremities: No: Cool, Cyanosis Integumentary: Yes: Bruising (lower abdominal wall from injections), Incision ( RUQ with dermabond). No: Jaundice, Rash Wound/Incision: Yes: Clean/Dry, Well Approximated, Open to air (with dermabond, intact). No: Reddened Neurological: Yes: Alert, Oriented Labs: CBC, BMP 11/08/18 06:30 11/08/18 06:30 INR, PTT INR 1.13 (0.83-1.09) H 11/08/18 06:30 Problem List - Problems (1) Proteinuria Assessment/Plan: POD3 s/p abdominal fat pad excisional biopsy incision c/d/i with dermabond nontender, no s/s infection pathology pending seen and discussed with Dr. Hameed, nephrology will f/u prior to discharge, but no specific need for surgical followup as long as she sees PMD and/or oncologist to make sure incision is ok in 1-2 weeks Code(s): R80.9 - PROTEINURIA, UNSPECIFIED Qualifiers: Proteinuria type: persistent Qualified Code(s): R80.1 - Persistent proteinuria, unspecified (2) Multiple myeloma Code(s): C90.00 - MULTIPLE MYELOMA NOT HAVING ACHIEVED REMISSION Qualifiers: Multiple myeloma remission status: not in remission Qualified Code(s): C90.00 - Multiple myeloma not having achieved remission (3) Hypothyroidism Code(s): E03.9 - HYPOTHYROIDISM, UNSPECIFIED Qualifiers: Hypothyroidism type: acquired Qualified Code(s): E03.9 - Hypothyroidism, unspecified (4) HTN (hypertension) Code(s): I10 - ESSENTIAL (PRIMARY) HYPERTENSION Qualifiers: Hypertension type: essential hypertension Qualified Code(s): I10 - Essential (primary) hypertension (5) HLD (hyperlipidemia) Code(s): E78.5 - HYPERLIPIDEMIA, UNSPECIFIED Qualifiers: Hyperlipidemia type: unspecified Qualified Code(s): E78.5 - Hyperlipidemia , unspecified
[2018-11-08] MEDS: PHYTONADIONE 10 MG/1 ML AMP SQ SCH (12:40)
--- NOTE | 2018-11-08 14:09 | PN ---
Progress Note, Physician History of Present Illness: Pt seen and examined at bedside. She is awake and alert. She denies shortness of breath. - Current Medication List Current Medications: Active Medications Acetaminophen (Tylenol -) 650 mg PO Q6H PRN PRN Reason: PAIN OR FEVER Last Admin: 11/07/18 22:38 Dose: 650 mg Allopurinol (Zyloprim -) 300 mg PO DAILY [facility] Last Admin: 11/08/18 09:25 Dose: 300 mg Atorvastatin Calcium (Lipitor -) 40 mg PO HS [facility] Last Admin: 11/07/18 22:39 Dose: 40 mg Atovaquone (Mepron -) 1,500 mg PO DAILY@0800 [facility] Last Admin: 11/08/18 09:25 Dose: 1,500 mg Diltiazem HCl (Cardizem Cd -) 240 mg PO DAILY [facility] Last Admin: 11/08/18 09:33 Dose: 240 mg Cefepime HCl 1 gm/ Dextrose 100 mls @ 200 mls/hr IVPB Q8H-IV [facility]; Protocol Last Admin: 11/08/18 09:25 Dose: 200 mls/hr Sodium Chloride (Normal Saline -) 1,000 mls @ 42 mls/hr IV ASDIR [facility] Last Admin: 11/08/18 01:13 Dose: 42 mls/hr Levothyroxine Sodium (Synthroid -) 50 mcg PO DAILY@0700 [facility] Last Admin: 11/08/18 06:23 Dose: 50 mcg Ondansetron HCl (Zofran Injection) 4 mg IVPUSH Q6H PRN PRN Reason: NAUSEA AND/OR VOMITING Pantoprazole Sodium (Protonix -) 40 mg PO DAILY [facility] Last Admin: 11/08/18 09:25 Dose: 40 mg Phytonadione (Aqua Mephyton Injection -) 5 mg SQ DAILY [facility] Stop: 11/10/18 10:01 Last Admin: 11/08/18 12:40 Dose: 5 mg Polyethylene Glycol (Miralax (For Daily Use) -) 17 gm PO DAILY [facility] Last Admin: 11/08/18 09:26 Dose: Not Given Valacyclovir HCl (Valtrex -) 500 mg PO DAILY [facility] Last Admin: 11/08/18 09:25 Dose: 500 mg - Objective Vital Signs: Vital Signs Temperature 98.8 F 11/08/18 09:38 Pulse Rate 101 H 11/08/18 09:38 Respiratory Rate 18 11/08/18 09:38 Blood Pressure 121/63 11/08/18 09:38 O2 Sat by Pulse Oximetry (%) 99 11/07/18 21:00 Constitutional: Yes: Calm Eyes: Yes: Conjunctiva Clear HENT: Yes: Atraumatic Cardiovascular: Yes: S1, S2 Respiratory: Yes: CTA Bilaterally Gastrointestinal: Yes: Normal Bowel Sounds, Soft Musculoskeletal: Yes: WNL Edema: No Neurological: Yes: Oriented Psychiatric: Yes: Oriented Labs: CBC, BMP 11/08/18 06:30 11/08/18 06:30 INR, PTT INR 1.13 (0.83-1.09) H 11/08/18 06:30 Fibrinogen 401.0 mg/dL (238-498) 11/04/18 05:00 Problem List - Problems (1) Dehydration Code(s): E86.0 - DEHYDRATION (2) Hypothyroidism Code(s): E03.9 - HYPOTHYROIDISM, UNSPECIFIED Qualifiers: Hypothyroidism type: acquired Qualified Code(s): E03.9 - Hypothyroidism, unspecified (3) Multiple myeloma Code(s): C90.00 - MULTIPLE MYELOMA NOT HAVING ACHIEVED REMISSION Qualifiers: Multiple myeloma remission status: not in remission Qualified Code(s): C90.00 - Multiple myeloma not having achieved remission (4) Nausea Code(s): R11.0 - NAUSEA (5) Proteinuria Code(s): R80.9 - PROTEINURIA, UNSPECIFIED Qualifiers: Proteinuria type: persistent Qualified Code(s): R80.1 - Persistent proteinuria, unspecified Assessment/Plan Current Medications Generic Name Dose Route Start Last Admin Trade Name Freq PRN Reason Stop Dose Admin Acetaminophen 650 mg 11/05/18 16:41 11/07/18 22:38 Tylenol - PO 650 mg Q6H PRN Administration PAIN OR FEVER Allopurinol 300 mg 11/06/18 10:00 11/08/18 09:25 Zyloprim - PO 300 mg DAILY [facility] Administration Atorvastatin Calcium 40 mg 11/05/18 22:00 11/07/18 22:39 Lipitor - PO 40 mg HS [facility] Administration Atovaquone 1,500 mg 11/06/18 08:00 11/08/18 09:25 Mepron - PO 1,500 mg DAILY@0800 [facility] Administration Diltiazem HCl 240 mg 11/06/18 10:00 11/08/18 09:33 Cardizem Cd - PO 240 mg DAILY [facility] Administration Cefepime HCl 1 gm/ Dextrose 100 mls @ 200 mls/hr 11/05/18 18:00 11/08/18 09: 25 IVPB 200 mls/hr Q8H-IV [facility] Administration Protocol Sodium Chloride 1,000 mls @ 42 mls/hr 11/05/18 16:41 11/08/18 01:13 Normal Saline - IV 42 mls/hr ASDIR [facility] Administration Levothyroxine Sodium 50 mcg 11/06/18 07:00 11/08/18 06:23 Synthroid - PO 50 mcg DAILY@0700 [facility] Administration Ondansetron HCl 4 mg 11/05/18 16:41 Zofran Injection IVPUSH Q6H PRN NAUSEA AND/OR VOMITING Pantoprazole Sodium 40 mg 11/06/18 10:00 11/08/18 09:25 Protonix - PO 40 mg DAILY [facility] Administration Phytonadione 5 mg 11/08/18 10:00 11/08/18 12:40 Aqua Mephyton Injection - SQ 11/10/18 10:01 5 mg DAILY [facility] Administration Polyethylene Glycol 17 gm 11/06/18 10:00 11/08/18 09:26 Miralax (For Daily Use) - PO Not Given DAILY [facility] Valacyclovir HCl 500 mg 11/06/18 10:00 11/08/18 09:25 Valtrex - PO 500 mg DAILY [facility] Administration Impression 1. proteinuria 2. multiple myeloma 3. failure to thrive 4. dehydration 5. htn 6. HLD 7. hypothyroidism 8. elevated PTT 9. anemia 10. hyperkalemia Plan - follow abd fat pad biopsy - ruby function stable - pt still with proteinuria - follow ptt - oncology follow up - arb on hold - will follow
--- NOTE | 2018-11-08 14:17 | PN ---
Progress Note, Physician History of Present Illness: Febrile overnight 101.6 Offers no complaints Leukopenic WBC 3.4 ANC 1.8 Cultures negative - Current Medication List Current Medications: Active Medications Acetaminophen (Tylenol -) 650 mg PO Q6H PRN PRN Reason: PAIN OR FEVER Last Admin: 11/07/18 22:38 Dose: 650 mg Allopurinol (Zyloprim -) 300 mg PO DAILY [facility] Last Admin: 11/08/18 09:25 Dose: 300 mg Atorvastatin Calcium (Lipitor -) 40 mg PO HS [facility] Last Admin: 11/07/18 22:39 Dose: 40 mg Atovaquone (Mepron -) 1,500 mg PO DAILY@0800 [facility] Last Admin: 11/08/18 09:25 Dose: 1,500 mg Diltiazem HCl (Cardizem Cd -) 240 mg PO DAILY [facility] Last Admin: 11/08/18 09:33 Dose: 240 mg Cefepime HCl 1 gm/ Dextrose 100 mls @ 200 mls/hr IVPB Q8H-IV [facility]; Protocol Last Admin: 11/08/18 09:25 Dose: 200 mls/hr Sodium Chloride (Normal Saline -) 1,000 mls @ 42 mls/hr IV ASDIR [facility] Last Admin: 11/08/18 01:13 Dose: 42 mls/hr Levothyroxine Sodium (Synthroid -) 50 mcg PO DAILY@0700 [facility] Last Admin: 11/08/18 06:23 Dose: 50 mcg Ondansetron HCl (Zofran Injection) 4 mg IVPUSH Q6H PRN PRN Reason: NAUSEA AND/OR VOMITING Pantoprazole Sodium (Protonix -) 40 mg PO DAILY [facility] Last Admin: 11/08/18 09:25 Dose: 40 mg Phytonadione (Aqua Mephyton Injection -) 5 mg SQ DAILY [facility] Stop: 11/10/18 10:01 Last Admin: 11/08/18 12:40 Dose: 5 mg Polyethylene Glycol (Miralax (For Daily Use) -) 17 gm PO DAILY [facility] Last Admin: 11/08/18 09:26 Dose: Not Given Valacyclovir HCl (Valtrex -) 500 mg PO DAILY [facility] Last Admin: 11/08/18 09:25 Dose: 500 mg - Objective Vital Signs: Vital Signs Temperature 98.8 F 11/08/18 09:38 Pulse Rate 101 H 11/08/18 09:38 Respiratory Rate 18 11/08/18 09:38 Blood Pressure 121/63 11/08/18 09:38 O2 Sat by Pulse Oximetry (%) 99 11/07/18 21:00 Constitutional: Yes: No Distress Eyes: Yes: Conjunctiva Clear Cardiovascular: Yes: Regular Rate and Rhythm, S1, S2 Respiratory: Yes: CTA Bilaterally Gastrointestinal: Yes: Normal Bowel Sounds, Soft, Other (Biopsy site, abdomen). No: Tenderness Labs: CBC, BMP 11/08/18 06:30 11/08/18 06:30 INR, PTT INR 1.13 (0.83-1.09) H 11/08/18 06:30 Fibrinogen 401.0 mg/dL (238-498) 11/04/18 05:00 Assessment/Plan Fever ? source Leukopenia Hx Myeloma PCN allergy Cultures no growth Will D/C cefepime, reculture off for recurrent fever
[2018-11-08] MEDS ORDERED: LIDOCAINE HCL 1%, 10 MG/ML (20ML VIAL) ONE (15:11)
[2018-11-08] MEDS: ACETAMINOPHEN 325 MG TABLET (FP) PO PRN (18:02)
[2018-11-08] MEDS: ATORVASTATIN CA 40 MG TABLET (FP) PO SCH (21:36)
--- NOTE | 2018-11-08 23:19 | PROC ---
Bone Marrow Aspiration/Biopsy - Consent Risks and Benefits Explained: Yes - Procedure Location: Right Iliac Crest Anesthesia: 1% Lidocaine Sterile Technique: Yes Specimen: Obtained Position: Other (leftlateral) Patient tolerated procedure: Well with minimal pain Sterile Dressing Applied: Yes Remarks: myeloma r/o amyloid
--- NOTE | 2018-11-08 23:19 | PN ---
Progress Note (short form) - Note Progress Note: Patient seen and examined Feels well Last Vital Signs Temp Pulse Resp BP Pulse Ox 99.2 F 90 18 140/74 96 11/08/18 16:45 11/08/18 16:45 11/08/18 20:21 11/08/18 16:45 11/08/18 20:21 Cor: RSR, No murmurs, No gallops Lungs: Clear to P&A Abd: Soft, Normal bowel sounds, No organomegaly Ext:No significant edema Abnormal Lab Results 11/08/18 11/08/18 11/08/18 06:30 06:30 06:30 WBC 3.4 L RBC 2.69 L Hgb 8.7 L Hct 24.6 L RDW 16.4 H Monocytes % 15.6 H PT with INR 13.30 H INR 1.13 H PTT (Actin FS) 37.4 H Anion Gap 6 L AST 11 L ALT 12 L Albumin 1.1 L U Random Total Protein Urine Creatinine 11/08/18 10:25 WBC RBC Hgb Hct RDW Monocytes % PT with INR INR PTT (Actin FS) Anion Gap AST ALT Albumin U Random Total Protein 751.1 H Urine Creatinine 98.0 H Active Medications Generic Name Dose Route Start Last Admin Trade Name Freq PRN Reason Stop Dose Admin Acetaminophen 650 mg 11/05/18 16:41 11/08/18 18:02 Tylenol - PO 650 mg Q6H PRN Administration PAIN OR FEVER Allopurinol 300 mg 11/06/18 10:00 11/08/18 09:25 Zyloprim - PO 300 mg DAILY [facility] Administration Atorvastatin Calcium 40 mg 11/05/18 22:00 11/08/18 21:36 Lipitor - PO 40 mg HS [facility] Administration Atovaquone 1,500 mg 11/06/18 08:00 11/08/18 09:25 Mepron - PO 1,500 mg DAILY@0800 [facility] Administration Diltiazem HCl 240 mg 11/06/18 10:00 11/08/18 09:33 Cardizem Cd - PO 240 mg DAILY [facility] Administration Sodium Chloride 1,000 mls @ 42 mls/hr 11/05/18 16:41 11/08/18 01:13 Normal Saline - IV 42 mls/hr ASDIR [facility] Administration Levothyroxine Sodium 50 mcg 11/06/18 07:00 11/08/18 06:23 Synthroid - PO 50 mcg DAILY@0700 [facility] Administration Ondansetron HCl 4 mg 11/05/18 16:41 Zofran Injection IVPUSH Q6H PRN NAUSEA AND/OR VOMITING Pantoprazole Sodium 40 mg 11/06/18 10:00 11/08/18 09:25 Protonix - PO 40 mg DAILY [facility] Administration Phytonadione 5 mg 11/08/18 10:00 11/08/18 12:40 Aqua Mephyton Injection - SQ 11/10/18 10:01 5 mg DAILY [facility] Administration Polyethylene Glycol 17 gm 11/06/18 10:00 11/08/18 09:26 Miralax (For Daily Use) - PO Not Given DAILY [facility] Valacyclovir HCl 500 mg 11/06/18 10:00 11/08/18 09:25 Valtrex - PO 500 mg DAILY [facility] Administration A/P 73 y/o patient with myeloma/? amyloid, on velcade/cytoxan/dexamethasone a/w vomiting/hypotension s/p 4 doses of weekly velcade/dex Concern for Myeloma + ? amyloid vs ? castlemans disease ? POEMS( not meeting all criteria) await fat pad bx bmbx done today renal bx on hold due to elevated PTT/factor X deficiency trial of vitamin K Low grade temps/immunosuppressed/very low IgG levels repat Ct scans on valtrex/mepron prphy ? IVIG replacement stop cefepime discussed plan with patient/son physical therapy
--- NOTE | 2018-11-08 23:34 | PN ---
Progress Note, Physician History of Present Illness: No new complaints - Current Medication List Current Medications: Active Medications Acetaminophen (Tylenol -) 650 mg PO Q6H PRN PRN Reason: PAIN OR FEVER Last Admin: 11/08/18 18:02 Dose: 650 mg Allopurinol (Zyloprim -) 300 mg PO DAILY [facility] Last Admin: 11/08/18 09:25 Dose: 300 mg Atorvastatin Calcium (Lipitor -) 40 mg PO HS [facility] Last Admin: 11/08/18 21:36 Dose: 40 mg Atovaquone (Mepron -) 1,500 mg PO DAILY@0800 [facility] Last Admin: 11/08/18 09:25 Dose: 1,500 mg Diltiazem HCl (Cardizem Cd -) 240 mg PO DAILY [facility] Last Admin: 11/08/18 09:33 Dose: 240 mg Sodium Chloride (Normal Saline -) 1,000 mls @ 42 mls/hr IV ASDIR [facility] Last Admin: 11/08/18 01:13 Dose: 42 mls/hr Levothyroxine Sodium (Synthroid -) 50 mcg PO DAILY@0700 [facility] Last Admin: 11/08/18 06:23 Dose: 50 mcg Ondansetron HCl (Zofran Injection) 4 mg IVPUSH Q6H PRN PRN Reason: NAUSEA AND/OR VOMITING Pantoprazole Sodium (Protonix -) 40 mg PO DAILY [facility] Last Admin: 11/08/18 09:25 Dose: 40 mg Phytonadione (Aqua Mephyton Injection -) 5 mg SQ DAILY [facility] Stop: 11/10/18 10:01 Last Admin: 11/08/18 12:40 Dose: 5 mg Polyethylene Glycol (Miralax (For Daily Use) -) 17 gm PO DAILY [facility] Last Admin: 11/08/18 09:26 Dose: Not Given Valacyclovir HCl (Valtrex -) 500 mg PO DAILY [facility] Last Admin: 11/08/18 09:25 Dose: 500 mg - Objective Vital Signs: Vital Signs Temperature 99.2 F 11/08/18 16:45 Pulse Rate 90 11/08/18 16:45 Respiratory Rate 18 11/08/18 20:21 Blood Pressure 140/74 11/08/18 16:45 O2 Sat by Pulse Oximetry (%) 96 11/08/18 20:21 Neck: Yes: WNL, Supple Cardiovascular: Yes: WNL, Regular Rate and Rhythm Respiratory: Yes: WNL, Regular, CTA Bilaterally Gastrointestinal: Yes: WNL, Normal Bowel Sounds, Soft Labs: CBC, BMP 11/08/18 06:30 11/08/18 06:30 INR, PTT INR 1.13 (0.83-1.09) H 11/08/18 06:30 Fibrinogen 401.0 mg/dL (238-498) 11/04/18 05:00 Problem List - Problems (1) Fever Assessment/Plan: Pt had repeat blood cultures DC antibxs Pt remains afebrile w/ normal WBC Code(s): R50.9 - FEVER, UNSPECIFIED (2) Multiple myeloma Assessment/Plan: Chemotx scheduled for 11/10/18 Follow WBC S/P fat pad bx due to r/o amyloid deposits Code(s): C90.00 - MULTIPLE MYELOMA NOT HAVING ACHIEVED REMISSION Qualifiers: Multiple myeloma remission status: not in remission Qualified Code(s): C90.00 - Multiple myeloma not having achieved remission (3) Nausea Assessment/Plan: Multifactorial Due to chemotx Code(s): R11.0 - NAUSEA (4) Acute on chronic renal failure Assessment/Plan: Bun/creatinine improved Monitor labs Pt unable to get renal bx due to elevated PTT Code(s): N17.9 - ACUTE KIDNEY FAILURE, UNSPECIFIED; N18.9 - CHRONIC KIDNEY DISEASE, UNSPECIFIED Qualifiers: Chronic kidney disease stage: stage 2 (mild) (5) HTN (hypertension) Assessment/Plan: Cont to monitor BP Code(s): I10 - ESSENTIAL (PRIMARY) HYPERTENSION Qualifiers: Hypertension type: essential hypertension Qualified Code(s): I10 - Essential (primary) hypertension (6) HLD (hyperlipidemia) Assessment/Plan: Cont lipitor Code(s): E78.5 - HYPERLIPIDEMIA, UNSPECIFIED Qualifiers: Hyperlipidemia type: unspecified Qualified Code(s): E78.5 - Hyperlipidemia , unspecified (7) Hypothyroidism Assessment/Plan: Cont levothyroxine Repeat TSH in 5 weeks Code(s): E03.9 - HYPOTHYROIDISM, UNSPECIFIED Qualifiers: Hypothyroidism type: acquired Qualified Code(s): E03.9 - Hypothyroidism, unspecified (8) Anemia Assessment/Plan: S/P transfusion 1 unit PRBC's H/H remained stable today Multifactorial Code(s): D64.9 - ANEMIA, UNSPECIFIED Qualifiers: Chronic kidney disease stage: unspecified stage (9) Troponin I above reference range Assessment/Plan: Due to demand ischemia Code(s): R74.8 - ABNORMAL LEVELS OF OTHER SERUM ENZYMES
[2018-11-09 05:20] LABS: IGA IMMUNOGLOBULIN 2008 mg/dL (64-422); IGM IMMUNOGLOBULIN 15 mg/dL (26-217)
[2018-11-09] MEDS: LEVOTHYROXINE NA 50 MCG TABLET (FP) PO SCH (06:00)
[2018-11-09] MEDS: SODIUM CHLORIDE 1,000 ML IV SCH ×2 (06:02→21:46)
[2018-11-09 07:09] LABS: BASO % 0.6 % (0-2.0); EOS % 2.5 % (0-4.5); HEMATOCRIT 27.7 % (32.4-45.2); HEMOGLOBIN 8.9 GM/dL (10.7-15.3); LYMPH % 26.2 % (8-40); MCH 29.9 pg (25.7-33.7); MCHC 32.1 g/dl (32.0-36.0); MEAN PLT VOLUME 9.3 fl (7.5-11.1); MONO % 11.9 % (3.8-10.2); NEUT % 58.8 % (42.8-82.8); PLATELET COUNT 167 K/MM3 (134-434); RBC 2.98 M/mm3 (3.60-5.2); RDW 16.3 % (11.6-15.6); WHITE BLOOD COUNT 3.6 K/mm3 (4.0-10.0)
[2018-11-09 07:39] LABS: ALBUMIN 1.3 g/dl (3.4-5.0); ALK PHOS 54 U/L (45-117); ANION GAP 11 MMOL/L (8-16); BILIRUBIN,TOTAL 0.3 mg/dL (0.2-1); BLOOD UREA NITROGEN 13 mg/dL (7-18); CALCIUM 8.8 mg/dL (8.5-10.1); CHLORIDE 108 mmol/L (98-107); CO2 24 mmol/L (21-32); CREATININE 0.8 mg/dL (0.55-1.3); GLUCOSE,RANDOM 79 mg/dL (74-106); POTASSIUM 4.3 mmol/L (3.5-5.1); SGOT/AST 13 U/L (15-37); SGPT/ALT 13 U/L (13-61); SODIUM 143 mmol/L (136-145); TOT PROT 7.6 g/dl (6.4-8.2)
[2018-11-09 07:51] LABS: URINE APPEARANCE CLEAR; URINE BILIRUBIN NEGATIVE (<2.0 mg/dL); URINE COLOR STRAW; URINE GLUCOSE (UA) NEGATIVE (NEGATIVE); URINE KETONE NEGATIVE (NEGATIVE); URINE LEUK ESTERASE NEGATIVE (NEGATIVE); URINE NITRITE NEGATIVE (NEGATIVE); URINE PROTEIN 3+ (NEGATIVE); URINE UROBILINOGEN NEGATIVE mg/dL (0.2-1.0)
[2018-11-09 08:09] LABS: EPI CELLS RARE /HPF (FEW); URINE MUCUS RARE
[2018-11-09] MEDS ORDERED: PT OWN MED DRAWER 7, Y5N ONE (09:49)
[2018-11-09] MEDS: valACYclovir HCL 500 MG TABLET (FP) PO SCH (14:05)
[2018-11-09] MEDS: POLYETHYLENE GLYCOL 3350 119 GM BTL PO SCH (14:05)
[2018-11-09] MEDS: ATOVAQUONE 750 MG/5 ML (UNIT-DOSE PACKAGING) PO SCH (14:05)
[2018-11-09] MEDS: ALLOPURINOL 300 MG TABLET (FP) PO SCH (14:05)
[2018-11-09] MEDS: PHYTONADIONE 10 MG/1 ML AMP SQ SCH (14:05)
[2018-11-09] MEDS: PANTOPRAZOLE 40 MG TABLET (FP) PO SCH (14:05)
--- NOTE | 2018-11-09 14:10 | PATH ---
Surgical Pathology Report Patient Name: SHERRY SIMPSON Med. Rec. #: [id number] /Age/Gender: 1945 (Age: 73) / F Account: [id number] Location: [facility] MED/SURG Taken: 11/05/2018 Received: 11/08/2018 Reported: 11/09/2018 Physicians: Sharyn Madrid M.D. Adrien Kant, M.D. Specimen(s) Received SEE SPECIMEN S1980 Clinical History None Provided Final Diagnosis AMENDED REPORT NO DIAGNOSIS. SEE SEPARATE SPECIMEN (S1980). Comment: Case Amended due to incorrect patient information. Findings discussed with Dr. Schulte. Electronically Signed Shantelle Davalos M.D.
--- NOTE | 2018-11-09 16:10 | PN ---
Progress Note, Physician History of Present Illness: Pt seen and examined at bedside. She is awake and alert. She denies shortness of breath. She had a bone marrow biopsy yesterday. - Current Medication List Current Medications: Active Medications Acetaminophen (Tylenol -) 650 mg PO Q6H PRN PRN Reason: PAIN OR FEVER Last Admin: 11/08/18 18:02 Dose: 650 mg Allopurinol (Zyloprim -) 300 mg PO DAILY [facility] Last Admin: 11/09/18 14:05 Dose: 300 mg Atorvastatin Calcium (Lipitor -) 40 mg PO HS [facility] Last Admin: 11/08/18 21:36 Dose: 40 mg Atovaquone (Mepron -) 1,500 mg PO DAILY@0800 [facility] Last Admin: 11/09/18 14:05 Dose: 1,500 mg Diltiazem HCl (Cardizem Cd -) 240 mg PO DAILY [facility] Last Admin: 11/09/18 14:04 Dose: 240 mg Sodium Chloride (Normal Saline -) 1,000 mls @ 42 mls/hr IV ASDIR [facility] Last Admin: 11/09/18 06:02 Dose: 42 mls/hr Levothyroxine Sodium (Synthroid -) 50 mcg PO DAILY@0700 [facility] Last Admin: 11/09/18 06:00 Dose: 50 mcg Ondansetron HCl (Zofran Injection) 4 mg IVPUSH Q6H PRN PRN Reason: NAUSEA AND/OR VOMITING Pantoprazole Sodium (Protonix -) 40 mg PO DAILY [facility] Last Admin: 11/09/18 14:05 Dose: 40 mg Phytonadione (Aqua Mephyton Injection -) 5 mg SQ DAILY [facility] Stop: 11/10/18 10:01 Last Admin: 11/09/18 14:05 Dose: 5 mg Polyethylene Glycol (Miralax (For Daily Use) -) 17 gm PO DAILY [facility] Last Admin: 11/09/18 14:05 Dose: Not Given Valacyclovir HCl (Valtrex -) 500 mg PO DAILY [facility] Last Admin: 11/09/18 14:05 Dose: 500 mg - Objective Vital Signs: Vital Signs Temperature 98.2 F 11/09/18 13:33 Pulse Rate 108 H 11/09/18 13:33 Respiratory Rate 20 11/09/18 13:33 Blood Pressure 136/78 11/09/18 13:33 O2 Sat by Pulse Oximetry (%) 96 11/09/18 10:10 Constitutional: Yes: Calm Eyes: Yes: Conjunctiva Clear HENT: Yes: Atraumatic Cardiovascular: Yes: S1, S2 Respiratory: Yes: CTA Bilaterally Gastrointestinal: Yes: Normal Bowel Sounds, Soft Genitourinary: Yes: WNL Musculoskeletal: Yes: WNL Edema: No Neurological: Yes: Oriented Psychiatric: Yes: Oriented Labs: CBC, BMP 11/09/18 06:30 11/09/18 06:30 INR, PTT INR 1.13 (0.83-1.09) H 11/08/18 06:30 Fibrinogen 401.0 mg/dL (238-498) 11/04/18 05:00 Problem List - Problems (1) Dehydration Code(s): E86.0 - DEHYDRATION (2) Hypothyroidism Code(s): E03.9 - HYPOTHYROIDISM, UNSPECIFIED Qualifiers: Hypothyroidism type: acquired Qualified Code(s): E03.9 - Hypothyroidism, unspecified (3) Multiple myeloma Code(s): C90.00 - MULTIPLE MYELOMA NOT HAVING ACHIEVED REMISSION Qualifiers: Multiple myeloma remission status: not in remission Qualified Code(s): C90.00 - Multiple myeloma not having achieved remission (4) Nausea Code(s): R11.0 - NAUSEA (5) Proteinuria Code(s): R80.9 - PROTEINURIA, UNSPECIFIED Qualifiers: Proteinuria type: persistent Qualified Code(s): R80.1 - Persistent proteinuria, unspecified Assessment/Plan Current Medications Generic Name Dose Route Start Last Admin Trade Name Freq PRN Reason Stop Dose Admin Acetaminophen 650 mg 11/05/18 16:41 11/08/18 18:02 Tylenol - PO 650 mg Q6H PRN Administration PAIN OR FEVER Allopurinol 300 mg 11/06/18 10:00 11/09/18 14:05 Zyloprim - PO 300 mg DAILY [facility] Administration Atorvastatin Calcium 40 mg 11/05/18 22:00 11/08/18 21:36 Lipitor - PO 40 mg HS [facility] Administration Atovaquone 1,500 mg 11/06/18 08:00 11/09/18 14:05 Mepron - PO 1,500 mg DAILY@0800 [facility] Administration Diltiazem HCl 240 mg 11/06/18 10:00 11/09/18 14:04 Cardizem Cd - PO 240 mg DAILY [facility] Administration Sodium Chloride 1,000 mls @ 42 mls/hr 11/05/18 16:41 11/09/18 06:02 Normal Saline - IV 42 mls/hr ASDIR [facility] Administration Levothyroxine Sodium 50 mcg 11/06/18 07:00 11/09/18 06:00 Synthroid - PO 50 mcg DAILY@0700 [facility] Administration Ondansetron HCl 4 mg 11/05/18 16:41 Zofran Injection IVPUSH Q6H PRN NAUSEA AND/OR VOMITING Pantoprazole Sodium 40 mg 11/06/18 10:00 11/09/18 14:05 Protonix - PO 40 mg DAILY [facility] Administration Phytonadione 5 mg 11/08/18 10:00 11/09/18 14:05 Aqua Mephyton Injection - SQ 11/10/18 10:01 5 mg DAILY [facility] Administration Polyethylene Glycol 17 gm 11/06/18 10:00 11/09/18 14:05 Miralax (For Daily Use) - PO Not Given DAILY [facility] Valacyclovir HCl 500 mg 11/06/18 10:00 11/09/18 14:05 Valtrex - PO 500 mg DAILY [facility] Administration Impression 1. proteinuria 2. multiple myeloma 3. failure to thrive 4. dehydration 5. htn 6. HLD 7. hypothyroidism 8. elevated PTT 9. anemia 10. hyperkalemia Plan - follow up ft pad and bone marrow biopsies - pt still with nephrotic proteinuria - cont to monitor renal function - follow ptt - oncology follow up - arb on hold - will follow
[2018-11-09] MEDS: ATORVASTATIN CA 40 MG TABLET (FP) PO SCH (21:46)
--- NOTE | 2018-11-09 21:47 | PN ---
Progress Note, Physician History of Present Illness: No new complaints - Current Medication List Current Medications: Active Medications Acetaminophen (Tylenol -) 650 mg PO Q6H PRN PRN Reason: PAIN OR FEVER Last Admin: 11/08/18 18:02 Dose: 650 mg Allopurinol (Zyloprim -) 300 mg PO DAILY [facility] Last Admin: 11/09/18 14:05 Dose: 300 mg Atorvastatin Calcium (Lipitor -) 40 mg PO HS [facility] Last Admin: 11/08/18 21:36 Dose: 40 mg Atovaquone (Mepron -) 1,500 mg PO DAILY@0800 [facility] Last Admin: 11/09/18 14:05 Dose: 1,500 mg Diltiazem HCl (Cardizem Cd -) 240 mg PO DAILY [facility] Last Admin: 11/09/18 14:04 Dose: 240 mg Sodium Chloride (Normal Saline -) 1,000 mls @ 42 mls/hr IV ASDIR [facility] Last Admin: 11/09/18 06:02 Dose: 42 mls/hr Levothyroxine Sodium (Synthroid -) 50 mcg PO DAILY@0700 [facility] Last Admin: 11/09/18 06:00 Dose: 50 mcg Ondansetron HCl (Zofran Injection) 4 mg IVPUSH Q6H PRN PRN Reason: NAUSEA AND/OR VOMITING Pantoprazole Sodium (Protonix -) 40 mg PO DAILY [facility] Last Admin: 11/09/18 14:05 Dose: 40 mg Phytonadione (Aqua Mephyton Injection -) 5 mg SQ DAILY [facility] Stop: 11/10/18 10:01 Last Admin: 11/09/18 14:05 Dose: 5 mg Polyethylene Glycol (Miralax (For Daily Use) -) 17 gm PO DAILY [facility] Last Admin: 11/09/18 14:05 Dose: Not Given Valacyclovir HCl (Valtrex -) 500 mg PO DAILY [facility] Last Admin: 11/09/18 14:05 Dose: 500 mg - Objective Vital Signs: Vital Signs Temperature 99.0 F 11/09/18 18:00 Pulse Rate 110 H 11/09/18 18:00 Respiratory Rate 18 11/09/18 18:00 Blood Pressure 124/69 11/09/18 18:00 O2 Sat by Pulse Oximetry (%) 96 11/09/18 10:10 Neck: Yes: WNL, Supple Cardiovascular: Yes: WNL, Regular Rate and Rhythm Respiratory: Yes: WNL, Regular, CTA Bilaterally Gastrointestinal: Yes: WNL, Normal Bowel Sounds, Soft Labs: CBC, BMP 11/09/18 06:30 11/09/18 06:30 INR, PTT INR 1.13 (0.83-1.09) H 11/08/18 06:30 Fibrinogen 401.0 mg/dL (238-498) 11/04/18 05:00 Problem List - Problems (1) Fever Assessment/Plan: Pt had repeat blood cultures wc remain negative DC antibxs Pt remains afebrile w/ normal WBC Code(s): R50.9 - FEVER, UNSPECIFIED (2) Multiple myeloma Assessment/Plan: Chemotx scheduled for 11/10/18 Follow WBC S/P fat pad bx due to r/o amyloid deposits S/P bone marrow bx Code(s): C90.00 - MULTIPLE MYELOMA NOT HAVING ACHIEVED REMISSION Qualifiers: Multiple myeloma remission status: not in remission Qualified Code(s): C90.00 - Multiple myeloma not having achieved remission (3) Nausea Assessment/Plan: Multifactorial Due to chemotx Code(s): R11.0 - NAUSEA (4) Acute on chronic renal failure Assessment/Plan: Bun/creatinine improved Monitor labs Pt unable to get renal bx due to elevated PTT Code(s): N17.9 - ACUTE KIDNEY FAILURE, UNSPECIFIED; N18.9 - CHRONIC KIDNEY DISEASE, UNSPECIFIED Qualifiers: Chronic kidney disease stage: stage 2 (mild) (5) HTN (hypertension) Code(s): I10 - ESSENTIAL (PRIMARY) HYPERTENSION Qualifiers: Hypertension type: essential hypertension Qualified Code(s): I10 - Essential (primary) hypertension (6) HLD (hyperlipidemia) Code(s): E78.5 - HYPERLIPIDEMIA, UNSPECIFIED Qualifiers: Hyperlipidemia type: unspecified Qualified Code(s): E78.5 - Hyperlipidemia , unspecified (7) Hypothyroidism Code(s): E03.9 - HYPOTHYROIDISM, UNSPECIFIED Qualifiers: Hypothyroidism type: acquired Qualified Code(s): E03.9 - Hypothyroidism, unspecified (8) Anemia Code(s): D64.9 - ANEMIA, UNSPECIFIED Qualifiers: Chronic kidney disease stage: unspecified stage (9) Troponin I above reference range Code(s): R74.8 - ABNORMAL LEVELS OF OTHER SERUM ENZYMES
[2018-11-10] MEDS: LEVOTHYROXINE NA 50 MCG TABLET (FP) PO SCH (06:05)
[2018-11-10 07:31] LABS: BASO % 0.5 % (0-2.0); EOS % 2.6 % (0-4.5); HEMATOCRIT 26.4 % (32.4-45.2); HEMOGLOBIN 8.5 GM/dL (10.7-15.3); LYMPH % 25.3 % (8-40); MCH 30.1 pg (25.7-33.7); MCHC 32.3 g/dl (32.0-36.0); MEAN CELL VOLUME 93.3 fl (80-96); MEAN PLT VOLUME 9.1 fl (7.5-11.1); MONO % 12.6 % (3.8-10.2); PLATELET COUNT 182 K/MM3 (134-434); RBC 2.83 M/mm3 (3.60-5.2); RDW 16.6 % (11.6-15.6); WHITE BLOOD COUNT 3.8 K/mm3 (4.0-10.0)
[2018-11-10 07:47] LABS: ALBUMIN 1.2 g/dl (3.4-5.0); ALK PHOS 53 U/L (45-117); ANION GAP 11 MMOL/L (8-16); BILIRUBIN,TOTAL 0.4 mg/dL (0.2-1); BLOOD UREA NITROGEN 12 mg/dL (7-18); CALCIUM 8.4 mg/dL (8.5-10.1); CHLORIDE 109 mmol/L (98-107); CO2 23 mmol/L (21-32); CREATININE 0.8 mg/dL (0.55-1.3); GLUCOSE,RANDOM 80 mg/dL (74-106); POTASSIUM 3.8 mmol/L (3.5-5.1); SGOT/AST 9 U/L (15-37); SGPT/ALT 11 U/L (13-61); SODIUM 142 mmol/L (136-145); TOT PROT 7.3 g/dl (6.4-8.2)
[2018-11-10] MEDS: PHYTONADIONE 10 MG/1 ML AMP SQ SCH (09:02)
[2018-11-10] MEDS: ALLOPURINOL 300 MG TABLET (FP) PO SCH (09:03)
[2018-11-10] MEDS: PANTOPRAZOLE 40 MG TABLET (FP) PO SCH (09:03)
[2018-11-10] MEDS: valACYclovir HCL 500 MG TABLET (FP) PO SCH (09:03)
[2018-11-10] MEDS: POLYETHYLENE GLYCOL 3350 119 GM BTL PO SCH (09:16)
[2018-11-10] MEDS: ATOVAQUONE 750 MG/5 ML (UNIT-DOSE PACKAGING) PO SCH (09:16)
--- NOTE | 2018-11-10 12:24 | PN ---
Progress Note, Physician History of Present Illness: Pt seen and examined at bedside. She is awake and alert. She denies shortness of breath. - Current Medication List Current Medications: Active Medications Acetaminophen (Tylenol -) 650 mg PO Q6H PRN PRN Reason: PAIN OR FEVER Last Admin: 11/08/18 18:02 Dose: 650 mg Allopurinol (Zyloprim -) 300 mg PO DAILY [facility] Last Admin: 11/10/18 09:03 Dose: 300 mg Atorvastatin Calcium (Lipitor -) 40 mg PO HS [facility] Last Admin: 11/09/18 21:46 Dose: 40 mg Atovaquone (Mepron -) 1,500 mg PO DAILY@0800 [facility] Last Admin: 11/10/18 09:16 Dose: 1,500 mg Diltiazem HCl (Cardizem Cd -) 240 mg PO DAILY [facility] Last Admin: 11/10/18 09:03 Dose: 240 mg Levothyroxine Sodium (Synthroid -) 50 mcg PO DAILY@0700 [facility] Last Admin: 11/10/18 06:05 Dose: 50 mcg Ondansetron HCl (Zofran Injection) 4 mg IVPUSH Q6H PRN PRN Reason: NAUSEA AND/OR VOMITING Pantoprazole Sodium (Protonix -) 40 mg PO DAILY [facility] Last Admin: 11/10/18 09:03 Dose: 40 mg Polyethylene Glycol (Miralax (For Daily Use) -) 17 gm PO DAILY [facility] Last Admin: 11/10/18 09:16 Dose: Not Given Valacyclovir HCl (Valtrex -) 500 mg PO DAILY [facility] Last Admin: 11/10/18 09:03 Dose: 500 mg - Objective Vital Signs: Vital Signs Temperature 98.4 F 11/10/18 10:00 Pulse Rate 101 H 11/10/18 10:00 Respiratory Rate 18 11/10/18 10:00 Blood Pressure 123/61 11/10/18 10:00 O2 Sat by Pulse Oximetry (%) 96 11/09/18 21:00 Constitutional: Yes: Calm Eyes: Yes: Conjunctiva Clear HENT: Yes: Atraumatic Neck: Yes: Supple Cardiovascular: Yes: S1, S2 Respiratory: Yes: CTA Bilaterally Gastrointestinal: Yes: Soft Genitourinary: Yes: WNL Musculoskeletal: Yes: WNL Edema: No Neurological: Yes: Oriented Psychiatric: Yes: Oriented Labs: CBC, BMP 11/10/18 06:30 11/10/18 06:30 INR, PTT INR 1.13 (0.83-1.09) H 11/08/18 06:30 Fibrinogen 401.0 mg/dL (238-498) 11/04/18 05:00 Problem List - Problems (1) Dehydration Code(s): E86.0 - DEHYDRATION (2) Hypothyroidism Code(s): E03.9 - HYPOTHYROIDISM, UNSPECIFIED Qualifiers: Hypothyroidism type: acquired Qualified Code(s): E03.9 - Hypothyroidism, unspecified (3) Multiple myeloma Code(s): C90.00 - MULTIPLE MYELOMA NOT HAVING ACHIEVED REMISSION Qualifiers: Multiple myeloma remission status: not in remission Qualified Code(s): C90.00 - Multiple myeloma not having achieved remission (4) Nausea Code(s): R11.0 - NAUSEA (5) Proteinuria Code(s): R80.9 - PROTEINURIA, UNSPECIFIED Qualifiers: Proteinuria type: persistent Qualified Code(s): R80.1 - Persistent proteinuria, unspecified Assessment/Plan Current Medications Generic Name Dose Route Start Last Admin Trade Name Freq PRN Reason Stop Dose Admin Acetaminophen 650 mg 11/05/18 16:41 11/08/18 18:02 Tylenol - PO 650 mg Q6H PRN Administration PAIN OR FEVER Allopurinol 300 mg 11/06/18 10:00 11/10/18 09:03 Zyloprim - PO 300 mg DAILY [facility] Administration Atorvastatin Calcium 40 mg 11/05/18 22:00 11/09/18 21:46 Lipitor - PO 40 mg HS [facility] Administration Atovaquone 1,500 mg 11/06/18 08:00 11/10/18 09:16 Mepron - PO 1,500 mg DAILY@0800 [facility] Administration Diltiazem HCl 240 mg 11/06/18 10:00 11/10/18 09:03 Cardizem Cd - PO 240 mg DAILY [facility] Administration Levothyroxine Sodium 50 mcg 11/06/18 07:00 11/10/18 06:05 Synthroid - PO 50 mcg DAILY@0700 [facility] Administration Ondansetron HCl 4 mg 11/05/18 16:41 Zofran Injection IVPUSH Q6H PRN NAUSEA AND/OR VOMITING Pantoprazole Sodium 40 mg 11/06/18 10:00 11/10/18 09:03 Protonix - PO 40 mg DAILY [facility] Administration Polyethylene Glycol 17 gm 11/06/18 10:00 11/10/18 09:16 Miralax (For Daily Use) - PO Not Given DAILY [facility] Valacyclovir HCl 500 mg 11/06/18 10:00 11/10/18 09:03 Valtrex - PO 500 mg DAILY [facility] Administration Impression 1. proteinuria 2. multiple myeloma 3. failure to thrive 4. dehydration 5. htn 6. HLD 7. hypothyroidism 8. elevated PTT 9. anemia 10. hyperkalemia Plan - follow up biopsy results - will need outpt follow up, she follows with Dr Thomas - avoid nsaids - restart losartan once more stable and monitor lytes - follow ptt - oncology follow up - will follow
[2018-11-10] MEDS ORDERED: BORTEZOMIB (VELCADE) 2.5 MG/ML SUB-Q INJECTION SQ ONE (12:45)
[2018-11-10] MEDS ORDERED: DEXAMETHASONE 4 MG TABLET (FP) PO ONE (13:30)
[2018-11-10 14:00] VITALS: TEMP 98.9
--- NOTE | 2018-11-10 17:06 | PN ---
Progress Note (short form) - Note Progress Note: Patient seen and examined Plan is for discharge S/P fat pad biopsy and bone marrow biopsy On velcade dex. Monitoring proteinuria Last Vital Signs Temp Pulse Resp BP Pulse Ox 98.9 F 88 20 112/55 L 97 11/10/18 13:58 11/10/18 13:58 11/10/18 13:58 11/10/18 13:58 11/10/18 09:00 HEENT: ZOILA, EOM Intact Oropharynx: No thrush, No mucositis Cor: RSR, No murmurs, No gallops Lungs: Clear to P&A Abd: Soft, Normal bowel sounds, No organomegaly Ext:LE edema Skin: No rashes, Integument intact CBC, BMP 11/10/18 06:30 11/10/18 06:30 Current Medications Generic Name Dose Route Start Last Admin Trade Name Freq PRN Reason Stop Dose Admin Acetaminophen 650 mg 11/05/18 16:41 11/08/18 18:02 Tylenol - PO 650 mg Q6H PRN Administration PAIN OR FEVER Allopurinol 300 mg 11/06/18 10:00 11/10/18 09:03 Zyloprim - PO 300 mg DAILY [facility] Administration Atorvastatin Calcium 40 mg 11/05/18 22:00 11/09/18 21:46 Lipitor - PO 40 mg HS [facility] Administration Atovaquone 1,500 mg 11/06/18 08:00 11/10/18 09:16 Mepron - PO 1,500 mg DAILY@0800 [facility] Administration Diltiazem HCl 240 mg 11/06/18 10:00 11/10/18 09:03 Cardizem Cd - PO 240 mg DAILY [facility] Administration Levothyroxine Sodium 50 mcg 11/06/18 07:00 11/10/18 06:05 Synthroid - PO 50 mcg DAILY@0700 [facility] Administration Ondansetron HCl 4 mg 11/05/18 16:41 Zofran Injection IVPUSH Q6H PRN NAUSEA AND/OR VOMITING Pantoprazole Sodium 40 mg 11/06/18 10:00 11/10/18 09:03 Protonix - PO 40 mg DAILY [facility] Administration Polyethylene Glycol 17 gm 11/06/18 10:00 11/10/18 09:16 Miralax (For Daily Use) - PO Not Given DAILY [facility] Valacyclovir HCl 500 mg 11/06/18 10:00 11/10/18 09:03 Valtrex - PO 500 mg DAILY [facility] Administration Myeloma Proteinuria Anemia Leukopenia Plan: continue treatment Await biopsy results ? kidney biopsy pending coags and results of BM BX and fat pad biopsy.
[2018-11-10 17:18] VITALS: BP 133/62; PULSE 100
--- NOTE | 2018-11-15 18:50 | PATH ---
Surgical Pathology Report Patient Name: SHERRY SIMPSON Med. Rec. #: [id number] /Age/Gender: 1945 (Age: 73) / F Account: [id number] Location: [facility] MED/SURG Taken: 11/08/2018 Received: 11/08/2018 Reported: 11/15/2018 Physicians: Sharyn Ramirez M.D. Specimen(s) Received A: BONE MARROW CLOT B: BONE MARROW BIOPSY C: ASPIRATION SMEARS 13 D: BONE MARROW BLOOD 2 GREEN 1 LAVENDER Clinical History Rule out myeloma Final Diagnosis A-D. BONE MARROW CORE, CLOT, ASPIRATE, BIOPSY: PLASMA CELL MYELOMA, IgA LAMBDA, EXTENSIVE (75%) INVOLVEMENT, SEE COMMENT. ADEQUATELY MATURING MYELOID ELEMENTS. NO DETECTABLE AMYLOID DEPOSITION. Morphology Aspirate Smear: Cellularity: Cellular, aspicular, hemodilute. Myeloid Precursors: Complete granulocytic maturation to segmented neutrophils without significant left shift or dysplasia. No increase of myeloblasts. Erythroid Precursors: Decreased, with mild NC asynchrony, focal dyspoiesis. Megakaryocytes: Rare. Lymphoid Cells: Not increased. Plasma Cells: Markedly increased, with polymorphism, including atypical large nucleolated forms. Iron: Present 2+/3+. No ring sideroblasts are seen. Core Biopsy/Clot: Hypercellular (50%) bone marrow with maturing trilineage hematopoiesis. Extensive interstitial plasma cell infiltrate is present. CD138 and MUM-1 immunostains highlight approximately 75% plasma cells. The myeloid cells show progressive and complete maturation. The megakaryocytes are morphologically unremarkable. No significant lymphoid infiltrates are seen. The bony trabeculae show focal remodeling. Special stain for Congo red does not show amyloid deposition. The clot sections reflect the findings of the core biopsy. Reticulin: Focally slightly increased. Iron: Stainable iron is not detected. However, iron stain in core biopsy may be as sensitive as on the aspirate smear partially due to decalcification artifact. COMPREHENSIVE FLOW PANEL performed and interpreted at [facility] [place] ([id number]) shows the following: INTERPRETATION: Clonal IgA Lambda plasma cell population, 11% of total events, is detected. No clonal B-cell population present. MULTIPLE MYELOMA FISH PANEL performed and interpreted at [facility] [place], [place] ([id number]) shows the following: INTERPRETATION: No evidence of a deletion of RB1 (13q14). No evidence of a deletion of the p53 (17p13) locus. No evidence of duplication of 1q21 is present. No CCND1/IGH t (11; 14) translocation is detected. No FGFR3/IGH t (4; 14) translocation is detected. No IGH/MAF t (14; 16) translocation is detected. NON-HODGKIN LYMPHOMA FISH PANEL No IGH/BCL2 t (14; 18) translocation is detected. No MYC (8q24) rearrangement is detected. No BCL6 (3q27) rearrangement is detected. Comments: Three copies of MYC in 5% of cells. One copy of BCL6 in 8% of cells. Comment: This case was sent to Dr. Tavon Krishnamurthy from [facility], [place], [place] ([id number]) the diagnosis above reflects his opinion. See [facility] report ([id number], [id number] and [id number]) for additional details. Electronically Signed Shantelle Davalos M.D. Addendum Reported: 11/17/2018 Addendum Diagnosis CYTOGENETIC KARYOTYPE ANALYSIS performed and interpreted at [facility] ([id number]) shows the following: RESULTS: 46, XX [20] INTERPRETATION: Normal Karyotype Within the limits of the cytogenetic methods, the chromosomes had normal G-banding patterns with no evidence of an acquired clonal numerical or structural abnormality. This normal result does not rule out a neoplasm. Subtle rearrangements or the presence of an aberrant clone in a low proportion of cells cannot be ruled out. Correlation with other clinical and hematologic data is suggested. Analysis was performed on cells from an unstimulated tissue culture that was stimulated with lymphoid mitogens. See [facility] report for additional details ([id number]). Shantelle Davalos M.D. Gross Description A. Received in formalin, labeled with the patient's name and indicated on the requisition to be a bone marrow biopsy, is a 1.3 cm in length x 0.2 cm in diameter kearns, cylindrical portion of bone with attached blood clot. The specimen is submitted in toto in one cassette, following decalcification. B. Received in formalin, labeled with the patient's name and indicated on the requisition to be a bone marrow clot, is a 1.5 cm in diameter x 1.4 cm in length red-brown blood clot. The specimen is sectioned and entirely submitted in 2 cassettes. C. Received are 13 bone marrow aspiration smear slides. D. Received are 2 green top tubes and 1 lavender top tube of blood which is sent to [facility]. 11/09/2018 [facility]11/09/2018
--- NOTE | 2018-11-17 14:32 | PATH ---
Surgical Pathology Report Patient Name: SHERRY SIMPSON Med. Rec. #: [id number] /Age/Gender: 1945 (Age: 73) / F Account: [id number] Location: [facility] MED/SURG Taken: 11/05/2018 Received: 11/08/2018 Reported: 11/17/2018 Physicians: Sharyn Amanda M.D. Specimen(s) Received PORTION OF ABDOMINAL WALL FAT Clinical History Proteinuria, multiple myeloma Final Diagnosis Abdominal fat, biopsy: mature fibroadipose tissue. congo red stain is focally positive for amyloid deposition. Comment: Congo red stain performed and interpreted at [facility], [place], [place] (Specimen #: [id number]). See Integrated Report for additional details. Electronically Signed Shantelle Davalos M.D. Gross Description Received in formalin labeled "portion of abdominal fat biopsy," is a 2.5 x 1.9 x 1.0 cm yellow, irregular portion of yellow, lobulated adipose tissue. The specimen is serially sectioned and entirely submitted in 2 cassettes. DL/11/08/2018 saudi/11/08/2018
== END 2018-11-10 18:01 | disposition home health service (06) | DRG 823 ==
LOC: JER 09:49 → JERBED 14:41 → J4W 23:11 → J7W 11-02 13:14
PROVIDERS: ADMIT Internal Medicine; ATTEND Internal Medicine
PROC: 0JB80ZZ Excision of Abdomen Subcutaneous Tissue and Fascia, Open Approach (ICD-10-PCS; principal; 2018-11-05 15:45)
PROC: 07DR3ZX Extraction of Iliac Bone Marrow, Percutaneous Approach, Diagnostic (ICD-10-PCS; 2018-11-08)
DX: C90.00 Multiple myeloma not having achieved remission (principal); D61.810 Antineoplastic chemotherapy induced pancytopenia; N17.9 Acute kidney failure, unspecified; D68.2 Hereditary deficiency of other clotting factors; D68.8 Other specified coagulation defects; I24.8 Other forms of acute ischemic heart disease; E78.5 Hyperlipidemia, unspecified; E03.9 Hypothyroidism, unspecified; J45.909 Unspecified asthma, uncomplicated; D64.9 Anemia, unspecified; K44.9 Diaphragmatic hernia without obstruction or gangrene; K76.89 Other specified diseases of liver; E86.0 Dehydration; R11.0 Nausea; R80.9 Proteinuria, unspecified; I25.10 Atherosclerotic heart disease of native coronary artery without angina pectoris; I95.9 Hypotension, unspecified; R74.8 Abnormal levels of other serum enzymes; R94.31 Abnormal electrocardiogram [ECG] [EKG]; I27.20 Pulmonary hypertension, unspecified; K31.89 Other diseases of stomach and duodenum; R76.8 Other specified abnormal immunological findings in serum; R62.7 Adult failure to thrive; I12.9 Hypertensive chronic kidney disease with stage 1 through stage 4 chronic kidney disease, or unspecified chronic kidney disease; N18.2 Chronic kidney disease, stage 2 (mild); D72.819 Decreased white blood cell count, unspecified; R50.9 Fever, unspecified; E87.5 Hyperkalemia; F32.9 Major depressive disorder, single episode, unspecified; Z88.0 Allergy status to penicillin
CPT/HCPCS: 36415; 36430; 36511; 71045-TC-FY; 71250-TC; 74176-TC; 78452-TC; 80048; 80053; 81003; 81015; 82550; 82570; 82784; 83605; 83615; 83735; 84100; 84156; 84439; 84443; 84484; 84550; 85025; 85384; 85610; 85730; 86376; 86850; 86900; 86901; 86922; 87040; 87086; 87804; 88300-TC; 88305-TC; 88311-TC; 88313-TC; 93005; 93010; 93017; 93306-TC; 93970-TC; 94760; 96401; 97116-GP; 97161-GP; 99283-25; A9502; G0480; J0131; J1644; J2785; J7030; J9041; P9038; P9058; Q9967

== ENCOUNTER → 2018-10-27 | Day surgery (SDC) | payer OTHER ==
[~2018-10-27] MED LIST: BORTEZOMIB (VELCADE) 2.5 MG/ML SUB-Q INJECTION SQ ONE; CYCLOPHOSPHAMIDE 25 MG TABLET PO ONE; CYCLOPHOSPHAMIDE 50 MG PO ONE; DEXAMETHASONE 4 MG TABLET (FP) PO ONE; ONDANSETRON *ODT* 4 MG TABLET SL ONE; ONDANSETRON INJECTION 8 MG in SODIUM CHLORIDE 50 ML IVPB ONE; SODIUM CHLORIDE 500 ML IV ONE
--- NOTE | 2018-10-27 17:54 | CONSULT ---
Consult - text type - Consultation Consultation Note: PAtient seen and examined Came to the clinic with nausea/heaving No fever/chills/abdominal pain/cough/SOB/urinary symptoms AFVSS Cor: RSR, No murmurs, No gallops Lungs: Clear to P&A Abd: Soft, Normal bowel sounds, No organomegaly Ext:No significant edema Labs/meds reviewed A/P Myeloma with progrssion ? amyloid velcade/cytoxan/dexamethasone redicsused side effects IV hydration/protonix/zofran
== END | disposition home or self-care (01) ==
LOC: JONCCHEMO 10-22 12:16 → J7W 11-02 12:58 → JONCCHEMO 11-02 12:58
PROVIDERS: ATTEND Internal Medicine Hematology & Oncology
DX: Z51.11 Encounter for antineoplastic chemotherapy (principal); C90.00 Multiple myeloma not having achieved remission
CPT/HCPCS: 96401; J8530; J9041; Q0162

== ENCOUNTER → 2018-11-10 | Day surgery (SDC) | payer OTHER | LOC: JONCCHEMO 05:44 ==

== ENCOUNTER 2018-11-17 05:30 | Day surgery (SDC) | payer OTHER ==
[2018-11-17] MEDS ORDERED: BORTEZOMIB (VELCADE) 2.5 MG/ML SUB-Q INJECTION SQ ONE (08:00)
[2018-11-17] MEDS ORDERED: DEXAMETHASONE 4 MG TABLET (FP) PO ONE (08:00)
[2018-11-17 10:26] LABS: BASO % 0.5 % (0-2.0); EOS % 0.8 % (0-4.5); HEMATOCRIT 27.6 % (32.4-45.2); HEMOGLOBIN 9.4 GM/dL (10.7-15.3); LYMPH % 22.3 % (8-40); MCHC 34.1 g/dl (32.0-36.0); MEAN CELL VOLUME 93.9 fl (80-96); MEAN PLT VOLUME 9.2 fl (7.5-11.1); MONO % 15.1 % (3.8-10.2); NEUT % 61.3 % (42.8-82.8); PLATELET COUNT 159 K/MM3 (134-434); RBC 2.94 M/mm3 (3.60-5.2); RDW 17.3 % (11.6-15.6); WHITE BLOOD COUNT 3.6 K/mm3 (4.0-10.0)
[2018-11-17 11:07] LABS: ALBUMIN 1.6 g/dl (3.4-5.0); ALK PHOS 55 U/L (45-117); ANION GAP 12 MMOL/L (8-16); BILIRUBIN,DIRECT 0.3 mg/dL (0.0-0.2); BILIRUBIN,TOTAL 0.8 mg/dL (0.2-1); BLOOD UREA NITROGEN 14 mg/dL (7-18); CALCIUM 8.8 mg/dL (8.5-10.1); CHLORIDE 106 mmol/L (98-107); CO2 24 mmol/L (21-32); CREATININE 1.1 mg/dL (0.55-1.3); GLUCOSE,RANDOM 90 mg/dL (74-106); MAGNESIUM 1.9 mg/dL (1.8-2.4); POTASSIUM 3.2 mmol/L (3.5-5.1); SGOT/AST 15 U/L (15-37); SGPT/ALT 19 U/L (13-61); SODIUM 142 mmol/L (136-145)
[2018-11-17 11:24] VITALS: TEMP 98.5
[2018-11-17] MEDS ORDERED: POTASSIUM CHLORIDE ORAL LIQUID 20 MEQ/15 ML PO ONE ×2 (11:27→16:15)
[2018-11-17] MEDS ORDERED: SODIUM CHLORIDE 1,000 ML IV SCH (11:45)
[2018-11-17 15:51] VITALS: BP 126/74; PULSE 102
== END 2018-11-17 16:08 | disposition home or self-care (01) ==
LOC: JONCCHEMO 05:30 → J7W 11:08 → JONCCHEMO 16:08
PROVIDERS: ATTEND Internal Medicine Hematology & Oncology
PROC: 3E01305 Introduction of Other Antineoplastic into Subcutaneous Tissue, Percutaneous Approach (ICD-10-PCS; principal; 2018-11-17)
PROC: 3E0337Z Introduction of Electrolytic and Water Balance Substance into Peripheral Vein, Percutaneous Approach (ICD-10-PCS; 2018-11-17)
DX: Z51.11 Encounter for antineoplastic chemotherapy (principal); C90.00 Multiple myeloma not having achieved remission
CPT/HCPCS: 36415; 80048; 80076; 83735; 85025; 96360; 96361; 96401; J7030; J9041

== ENCOUNTER 2018-11-24 08:44 | Day surgery (SDC) | payer OTHER ==
[2018-11-24 09:48] LABS: BASO % 0.2 % (0-2.0); EOS % 0.2 % (0-4.5); HEMATOCRIT 28.9 % (32.4-45.2); HEMOGLOBIN 9.8 GM/dL (10.7-15.3); MCH 31.5 pg (25.7-33.7); MCHC 34.1 g/dl (32.0-36.0); MEAN CELL VOLUME 92.4 fl (80-96); MEAN PLT VOLUME 9.8 fl (7.5-11.1); MONO % 12.8 % (3.8-10.2); NEUT % 69.8 % (42.8-82.8); PLATELET COUNT 136 K/MM3 (134-434); RBC 3.12 M/mm3 (3.60-5.2); RDW 17.6 % (11.6-15.6); WHITE BLOOD COUNT 3.9 K/mm3 (4.0-10.0)
[2018-11-24] MEDS ORDERED: BORTEZOMIB (VELCADE) 2.5 MG/ML SUB-Q INJECTION SQ ONE (10:00)
[2018-11-24] MEDS ORDERED: DEXAMETHASONE 4 MG TABLET (FP) PO ONE (10:00)
[2018-11-24 10:33] LABS: ALBUMIN 1.5 g/dl (3.4-5.0); ALK PHOS 60 U/L (45-117); ANION GAP 11 MMOL/L (8-16); BILIRUBIN,DIRECT 0.3 mg/dL (0.0-0.2); BILIRUBIN,TOTAL 0.5 mg/dL (0.2-1); BLOOD UREA NITROGEN 10 mg/dL (7-18); CALCIUM 8.5 mg/dL (8.5-10.1); CHLORIDE 105 mmol/L (98-107); CO2 25 mmol/L (21-32); CREATININE 0.9 mg/dL (0.55-1.3); GLUCOSE,RANDOM 98 mg/dL (74-106); MAGNESIUM 1.5 mg/dL (1.8-2.4); POTASSIUM 3.3 mmol/L (3.5-5.1); SGOT/AST 12 U/L (15-37); SGPT/ALT 8 U/L (13-61); SODIUM 141 mmol/L (136-145); TOT PROT 8.4 g/dl (6.4-8.2)
[2018-11-24] MEDS ORDERED: SODIUM CHLORIDE 750 ML IV SCH (11:45)
[2018-11-24] MEDS ORDERED: CYCLOPHOSPHAMIDE 50 MG CAPSULE PO ONE (12:00)
[2018-11-24] MEDS ORDERED: ONDANSETRON 4 MG/2 ML VIAL IVPB ONE (12:00)
[2018-11-24] MEDS ORDERED: POTASSIUM CHLORIDE TABS 20 MEQ TABLET.ER (FP) PO ONE (12:30)
[2018-11-24] MEDS ORDERED: MAGNESIUM SULF 50% (8.12 MEQ/2 ML-1 GM VIAL) IVPB ONE (12:30)
[2018-11-24] MEDS ORDERED: SODIUM CHLORIDE 250 ML IV STA (12:58)
[2018-11-24] MEDS ORDERED: MAGNESIUM SULF 50% (8.12 MEQ/2 ML-1 GM VIAL) ONE (13:47)
[2018-11-24 17:51] VITALS: TEMP 98
[2018-11-24 17:53] VITALS: BP 106/58; PULSE 75
== END 2018-11-24 16:30 | disposition home or self-care (01) ==
LOC: JONCCHEMO 08:44 → J7W 11:09 → JONCCHEMO 16:30
PROVIDERS: ATTEND Internal Medicine Hematology & Oncology
PROC: 3E01305 Introduction of Other Antineoplastic into Subcutaneous Tissue, Percutaneous Approach (ICD-10-PCS; principal; 2018-11-24)
PROC: 3E033GC Introduction of Other Therapeutic Substance into Peripheral Vein, Percutaneous Approach (ICD-10-PCS; 2018-11-24)
PROC: 3E033GC Introduction of Other Therapeutic Substance into Peripheral Vein, Percutaneous Approach (ICD-10-PCS; 2018-11-24)
DX: Z51.11 Encounter for antineoplastic chemotherapy (principal); C90.00 Multiple myeloma not having achieved remission
CPT/HCPCS: 36415; 80048; 80076; 82962; 83735; 85025; 96361; 96365; 96367; 96375; 96401; 96417; J9041

== ENCOUNTER 2018-12-01 07:16 | Day surgery (SDC) | payer OTHER ==
[2018-12-01] MEDS ORDERED: SODIUM CHLORIDE 1,000 ML IV ONE (09:45)
[2018-12-01] MEDS ORDERED: BORTEZOMIB (VELCADE) 2.5 MG/ML SUB-Q INJECTION SQ ONE (10:00)
[2018-12-01] MEDS ORDERED: DEXAMETHASONE 4 MG TABLET (FP) PO ONE (10:00)
[2018-12-01] MEDS ORDERED: SODIUM CHLORIDE 1,000 ML IV SCH (11:46)
[2018-12-01 12:04] LABS: HEMATOCRIT 26.5 % (32.4-45.2); MCH 31.5 pg (25.7-33.7); MEAN CELL VOLUME 92.7 fl (80-96); MEAN PLT VOLUME 10.2 fl (7.5-11.1); PLATELET COUNT 144 K/MM3 (134-434); RBC 2.86 M/mm3 (3.60-5.2); RDW 18.2 % (11.6-15.6); WHITE BLOOD COUNT 3.5 K/mm3 (4.0-10.0)
[2018-12-01 12:28] LABS: ALBUMIN 1.4 g/dl (3.4-5.0); ALK PHOS 52 U/L (45-117); ANION GAP 7 MMOL/L (8-16); BILIRUBIN,TOTAL 0.4 mg/dL (0.2-1); BLOOD UREA NITROGEN 13 mg/dL (7-18); CALCIUM 7.9 mg/dL (8.5-10.1); CHLORIDE 106 mmol/L (98-107); CO2 24 mmol/L (21-32); CREATININE 0.8 mg/dL (0.55-1.3); GLUCOSE,RANDOM 120 mg/dL (74-106); MAGNESIUM 1.7 mg/dL (1.8-2.4); POTASSIUM 3.8 mmol/L (3.5-5.1); SGOT/AST 10 U/L (15-37); SGPT/ALT 11 U/L (13-61); SODIUM 138 mmol/L (136-145); TOT PROT 7.1 g/dl (6.4-8.2)
[2018-12-01] MEDS ORDERED: MAGNESIUM SULF 50% (8.12 MEQ/2 ML-1 GM VIAL) IVPB ONE (12:55)
[2018-12-01 13:54] LABS: ANISOCYTOSIS 1+; MACROCYTOSIS 1+; OVALOCYTE 1+; PLATELET ESTIMATE DECREASED; TARGET CELLS 1+
[2018-12-01] MEDS ORDERED: ONDANSETRON INJECTION 8 MG in SODIUM CHLORIDE 50 ML IVPB ONE (14:00)
[2018-12-01] MEDS ORDERED: CYCLOPHOSPHAMIDE 50 MG PO ONE (14:00)
[2018-12-01] MEDS ORDERED: CYCLOPHOSPHAMIDE 50 MG CAPSULE PO ONE (14:00)
[2018-12-01 16:00] VITALS: BP 89/43; PULSE 87; TEMP 98.4
== END 2018-12-01 16:16 | disposition left against medical advice (07) ==
LOC: JONCCHEMO 07:16 → J7W 09:16 → JONCCHEMO 16:16
PROVIDERS: ATTEND Internal Medicine Hematology & Oncology
PROC: 3E01305 Introduction of Other Antineoplastic into Subcutaneous Tissue, Percutaneous Approach (ICD-10-PCS; principal; 2018-12-01)
PROC: 3E0337Z Introduction of Electrolytic and Water Balance Substance into Peripheral Vein, Percutaneous Approach (ICD-10-PCS; 2018-12-01)
DX: Z51.11 Encounter for antineoplastic chemotherapy (principal); C90.00 Multiple myeloma not having achieved remission
CPT/HCPCS: 36415; 80053; 83735; 85027; 96361; 96365; 96367; 96375; 96401; J7030; J9041

== ENCOUNTER 2018-12-08 07:03 | Day surgery (SDC) | payer OTHER ==
[2018-12-08 09:53] LABS: BASO % 0.2 % (0-2.0); EOS % 0.1 % (0-4.5); HEMATOCRIT 26.2 % (32.4-45.2); HEMOGLOBIN 9.1 GM/dL (10.7-15.3); LYMPH % 11.5 % (8-40); MCH 32.8 pg (25.7-33.7); MCHC 34.8 g/dl (32.0-36.0); MEAN CELL VOLUME 94.3 fl (80-96); MEAN PLT VOLUME 10.9 fl (7.5-11.1); MONO % 10.2 % (3.8-10.2); PLATELET COUNT 140 K/MM3 (134-434); RBC 2.78 M/mm3 (3.60-5.2); WHITE BLOOD COUNT 3.5 K/mm3 (4.0-10.0)
[2018-12-08] MEDS ORDERED: BORTEZOMIB (VELCADE) 2.5 MG/ML SUB-Q INJECTION SQ ONE (10:00)
[2018-12-08] MEDS ORDERED: ONDANSETRON INJECTION 8 MG in SODIUM CHLORIDE 50 ML IVPB ONE (10:00)
[2018-12-08] MEDS ORDERED: DEXAMETHASONE 4 MG TABLET (FP) PO ONE (10:00)
[2018-12-08] MEDS ORDERED: CYCLOPHOSPHAMIDE 50 MG CAPSULE PO ONE ×3 (10:00→12:00)
[2018-12-08 10:39] LABS: ALBUMIN 1.6 g/dl (3.4-5.0); ALK PHOS 57 U/L (45-117); ANION GAP 10 MMOL/L (8-16); BILIRUBIN,DIRECT 0.3 mg/dL (0.0-0.2); BILIRUBIN,TOTAL 0.8 mg/dL (0.2-1); BLOOD UREA NITROGEN 18 mg/dL (7-18); CALCIUM 8.4 mg/dL (8.5-10.1); CHLORIDE 104 mmol/L (98-107); CO2 22 mmol/L (21-32); CREATININE 0.8 mg/dL (0.55-1.3); GLUCOSE,RANDOM 110 mg/dL (74-106); LDH 278 U/L (84-246); MAGNESIUM 2.1 mg/dL (1.8-2.4); POTASSIUM 4.1 mmol/L (3.5-5.1); SGOT/AST 16 U/L (15-37); SGPT/ALT 14 U/L (13-61); SODIUM 136 mmol/L (136-145); TOT PROT 7.6 g/dl (6.4-8.2); URIC ACID 2.2 mg/dL (2.6-7.2)
[2018-12-08] MEDS ORDERED: CYANOCOBALAMIN (VITAMIN B-12) 1000 MCG/1 ML VIAL IM ONE (10:45)
[2018-12-08] MEDS ORDERED: SODIUM CHLORIDE 1,000 ML IV SCH (10:45)
[2018-12-08 17:38] VITALS: BP 102/55; PULSE 108; TEMP 98.1
== END 2018-12-08 16:00 | disposition home or self-care (01) ==
LOC: JONCCHEMO 07:03 → J7W 10:29 → JONCCHEMO 16:00
PROVIDERS: ATTEND Internal Medicine Hematology & Oncology
PROC: 3E0337Z Introduction of Electrolytic and Water Balance Substance into Peripheral Vein, Percutaneous Approach (ICD-10-PCS; principal; 2018-12-08)
DX: C90.00 Multiple myeloma not having achieved remission (principal); Z76.89 Persons encountering health services in other specified circumstances
CPT/HCPCS: 36415; 80048; 80076; 83615; 83735; 84550; 85025; 96361; 96365; 96366; 96372; J7030; J9041

== ENCOUNTER 2018-12-15 07:11 | Day surgery (SDC) | payer OTHER ==
[2018-12-15 08:43] VITALS: BP 116/72; PULSE 114
[2018-12-15 09:08] LABS: BASO % 0.4 % (0-2.0); EOS % 0.1 % (0-4.5); HEMATOCRIT 27.6 % (32.4-45.2); HEMOGLOBIN 9.1 GM/dL (10.7-15.3); LYMPH % 18.5 % (8-40); MCH 30.8 pg (25.7-33.7); MCHC 33.1 g/dl (32.0-36.0); MEAN CELL VOLUME 92.9 fl (80-96); MEAN PLT VOLUME 9.9 fl (7.5-11.1); MONO % 12.1 % (3.8-10.2); NEUT % 68.9 % (42.8-82.8); PLATELET COUNT 162 K/MM3 (134-434); RBC 2.97 M/mm3 (3.60-5.2); RDW 18.7 % (11.6-15.6)
[2018-12-15 09:35] LABS: ALBUMIN 1.5 g/dl (3.4-5.0); ALK PHOS 68 U/L (45-117); ANION GAP 8 MMOL/L (8-16); BILIRUBIN,TOTAL 0.7 mg/dL (0.2-1); BLOOD UREA NITROGEN 24 mg/dL (7-18); CALCIUM 8.4 mg/dL (8.5-10.1); CHLORIDE 109 mmol/L (98-107); CO2 23 mmol/L (21-32); CREATININE 0.9 mg/dL (0.55-1.3); GLUCOSE,RANDOM 105 mg/dL (74-106); POTASSIUM 3.9 mmol/L (3.5-5.1); SGOT/AST 19 U/L (15-37); SGPT/ALT 19 U/L (13-61); SODIUM 140 mmol/L (136-145); TOT PROT 7.2 g/dl (6.4-8.2)
[2018-12-15 09:38] LABS: ALBUMIN 1.6 g/dl (3.4-5.0); BILIRUBIN,DIRECT 0.3 mg/dL (0.0-0.2); BILIRUBIN,TOTAL 0.6 mg/dL (0.2-1); MAGNESIUM 1.9 mg/dL (1.8-2.4); TOT PROT 7.2 g/dl (6.4-8.2); URIC ACID 2.4 mg/dL (2.6-7.2)
[2018-12-15] MEDS ORDERED: DEXAMETHASONE 4 MG TABLET (FP) PO ONE (10:00)
[2018-12-15] MEDS ORDERED: BORTEZOMIB (VELCADE) 2.5 MG/ML SUB-Q INJECTION SQ ONE (10:00)
[2018-12-15] MEDS ORDERED: ONDANSETRON INJECTION 8 MG in SODIUM CHLORIDE 50 ML IVPB ONE (10:00)
[2018-12-15] MEDS ORDERED: ONDANSETRON 4 MG TABLET PO ONE (10:15)
[2018-12-15 14:54] VITALS: TEMP 98.7
[2018-12-16 19:14] LABS: FREE KAPPA,SERUM 7.8 mg/L (3.3-19.4)
== END 2018-12-15 11:00 | disposition home or self-care (01) ==
LOC: JONCCHEMO 07:11 → J7W 09:50 → JONCCHEMO 11:00
PROVIDERS: ATTEND Internal Medicine Hematology & Oncology
DX: Z51.11 Encounter for antineoplastic chemotherapy (principal); C90.00 Multiple myeloma not having achieved remission
CPT/HCPCS: 36415; 80053; 80076; 83615; 83735; 83883; 84550; 85025; 96401; J9041

== ENCOUNTER 2018-12-16 13:59 | Inpatient (IN) | payer OTHER ==
--- NOTE | 2018-12-16 14:27 | PDOC ---
History of Present Illness <Rashad Corona - Last Filed: 12/16/18 18:11> - History of Present Illness Initial Comments: 73 year old female with PMH of multiple myeloma (diagnosed 4 years ago, on chemo weekly, last dose yesterday 12/[address] Stuart), pending workup for amyloidosis, HTN, HLD, and hypothyroidism presenting with blood on her toilet paper for the past week. Per patient and family she has had diarrhea for the past month and this week it had been slightly worse. Denies blood in the toilet. Denies any abdominal pain or rectal pain. Denies fevers chills, chest pain, SOB, nausea, or other symptoms. She did see Dr. caruso yesterday for chemo and did not mention her bleeding but did mention her diarrhea. Of note, her family member (son) at bedside was very easily agitated and eventually had to be removed because of threatening staff members over objectively minor delays of care. 12/16/18 14:46 <Carmelina Patel - Last Filed: 12/16/18 19:23> - General Chief Complaint: Rectal Bleed Stated Complaint: SICK Time Seen by Provider: 12/16/18 14:27 Past History <Rashad Corona - Last Filed: 12/16/18 18:11> - Past Medical History Anemia: Yes Asthma: Yes Cancer: Yes (myeloma) Cardiac Disorders: Yes CVA: No COPD: Yes CHF: No Dementia: No Diabetes: No GI Disorders: Yes (HIATAL HERNIA) Disorders: No HTN: Yes Hypercholesterolemia: Yes Liver Disease: Yes (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) Seizures: No Thyroid Disease: Yes (Hypothyroidism ) - Surgical History Abdominal Surgery: Yes Appendectomy: No Cardiac Surgery: No Cholecystectomy: No Lung Surgery: No Neurologic Surgery: No Orthopedic Surgery: Yes (carpal tunnel ) - Immunization History Immunization Up to Date: Yes - Suicide/Smoking/Psychosocial Hx Smoking History: Never smoked Have you smoked in the past 12 months: No Number of Cigarettes Smoked Daily: 0 If you are a former smoker, when did you quit?: 1988 Cigars Per Day: 0 Information on smoking cessation initiated: No Hx Alcohol Use: No Drug/Substance Use Hx: No Substance Use Type: None Hx Substance Use Treatment: No <Carmelina Patel - Last Filed: 12/16/18 19:23> - Past Medical History Allergies/Adverse Reactions: Allergies Allergy/AdvReac Type Severity Reaction Status Date / Time Penicillins Allergy Severe Rash Verified 12/16/18 14:05 Home Medications: Ambulatory Orders Gabapentin 300 mg PO TID 06/14/13 Atorvastatin Ca [Lipitor] 40 mg PO HS 10/11/18 Diltiazem Cd [Cardizem Cd -] 240 mg PO DAILY 10/11/18 [place]-3/Dha/Epa/Fish Oil [[place] 3 500 Softgel] 1 each PO DAILY 10/11/18 Allopurinol [Zyloprim -] 300 mg PO DAILY #30 tablet 11/09/18 Levothyroxine [Synthroid -] 50 mcg PO DAILY@0700 #30 tablet 11/09/18 Pantoprazole Sodium [Protonix -] 40 mg PO DAILY #30 tablet.ec 11/09/18 Polyethylene Glycol 3350 [Miralax 119 gm Btl -] 17 gm PO DAILY #1 bottle Atovaquone 1,500 mg PO DAILY #300 ml 11/10/18 Review of Systems - Review of Systems Constitutional: Yes: Weakness. No: Fever, Loss of Appetite HEENTM: No: Blurred Vision, Tearing Respiratory: No: Cough, Shortness of Breath Cardiac (ROS): No: Chest Pain, Irregular Heart Rate, Lightheadedness, Palpitations ABD/GI: No: Diarrhea, Nausea, Vomiting : Yes: Other (blood in underwear). No: Dysuria, Discharge Integumentary: No: Erythema, Lesions, Pallor Neurological: No: Headache, Numbness, Paresthesia, Weakness Psychiatric: No: Anxiety, Depression Hematologic/Lymphatic: No: Anemia, Blood Clots, Easy Bleeding <Carmelina Patel - Last Filed: 12/16/18 19:23> *Physical Exam - Vital Signs Last Vital Signs Temp Pulse Resp BP Pulse Ox 98.8 F 113 H 16 107/72 96 12/16/18 14:05 12/16/18 16:14 12/16/18 16:14 12/16/18 16:14 12/16/18 16:14 <Rashad Corona - Last Filed: 12/16/18 18:11> - Vital Signs Last Vital Signs Temp Pulse Resp BP Pulse Ox 98.8 F 112 H 16 117/72 95 12/16/18 14:05 12/16/18 14:05 12/16/18 14:05 12/16/18 14:05 12/16/18 14:05 - Physical Exam General Appearance: Yes: Nourished, Appropriately Dressed. No: Apparent Distress HEENT: positive: EOMI, ALEJO, Normal ENT Inspection, Normal Voice Neck: positive: Trachea midline, Normal Thyroid, Supple. negative: Tender, Rigid Respiratory/Chest: positive: Lungs Clear, Normal Breath Sounds. negative: Chest Tender, Respiratory Distress Cardiovascular: positive: Regular Rhythm, Regular Rate Female Pelvic Exam: positive: normal external exam, other. negative: vaginal bleeding Gastrointestinal/Abdominal: positive: Normal Bowel Sounds, Flat, Soft. negative : Tender Rectal Exam: positive: heme negative stool, hemorrhoids (large hemorrhoids surroind the external anus, no active bleeding). negative: normal exam Musculoskeletal: positive: Normal Inspection. negative: Decreased Range of Motion Extremity: positive: Normal Capillary Refill, Normal Inspection, Normal Range of Motion. negative: Tender Neurologic: positive: Fully Oriented, Alert, Normal Mood/Affect, Normal Response , Motor Strength 5/5 <Carmelina Patel - Last Filed: 12/16/18 19:23> Moderate Sedation - Procedure Monitoring Vital Signs: Procedure Monitoring Vital Signs Temperature 98.8 F 12/16/18 14:05 Pulse Rate 113 H 12/16/18 16:14 Respiratory Rate 16 12/16/18 16:14 Blood Pressure 107/72 12/16/18 16:14 O2 Sat by Pulse Oximetry (%) 96 12/16/18 16:14 <Rashad Corona - Last Filed: 12/16/18 18:11> - Procedure Monitoring Vital Signs: Procedure Monitoring Vital Signs Temperature 98.8 F 12/16/18 14:05 Pulse Rate 112 H 12/16/18 14:05 Respiratory Rate 16 12/16/18 14:05 Blood Pressure 117/72 12/16/18 14:05 O2 Sat by Pulse Oximetry (%) 95 12/16/18 14:05 <Carmelina Patel - Last Filed: 12/16/18 19:23> ED Treatment Course - LABORATORY CBC & Chemistry Diagram: 12/16/18 15:09 12/16/18 15:09 - ADDITIONAL ORDERS Additional order review: Laboratory Results 12/16/18 12/16/18 12/16/18 15:09 15:09 15:09 PT with INR INR Sodium 143 Potassium 4.0 Chloride 112 H Carbon Dioxide 20 L Anion Gap 11 BUN 32 H Creatinine 1.1 Creat Clearance w eGFR 48.55 Random Glucose 87 Calcium 8.1 L Total Bilirubin 0.4 AST 18 ALT 19 Alkaline Phosphatase 62 Total Protein 7.0 Albumin 1.6 L Stool Occult Blood Negative Blood Type B POSITIVE Antibody Screen Negative 12/16/18 15:09 PT with INR 13.70 H INR 1.16 H Sodium Potassium Chloride Carbon Dioxide Anion Gap BUN Creatinine Creat Clearance w eGFR Random Glucose Calcium Total Bilirubin AST ALT Alkaline Phosphatase Total Protein Albumin Stool Occult Blood Blood Type Antibody Screen 12/16/18 15:09 RBC 2.87 L MCV 92.1 MCHC 33.8 RDW 18.6 H MPV 10.1 Neutrophils % 68.3 Lymphocytes % 19.3 Monocytes % 12.2 H Eosinophils % 0.0 D Basophils % 0.2 <Rashad Corona - Last Filed: 12/16/18 18:11> - LABORATORY CBC & Chemistry Diagram: 12/16/18 15:09 12/16/18 15:09 <Carmelina Patel - Last Filed: 12/16/18 19:23> Medical Decision Making - Medical Decision Making 73 year old female with MM and amyloid disease on active chemo, last doese yesterday presenting with diarrhea for the past month and rectal bleeding for the past week. Large hemorrhoids on PE without blood on the external vagina or in the entrance of the vagina. HgB stable and patient afebrile with good WBC. Overall exam is non-acute. However, Dr. Stuart wants to admit her for further diarrhea workup. 12/16/18 18:12 The patient did complain of chest pain after admitting the patietn to Dr. Puckett. Her EKG returned with rate 110, SD 156, QRS 110, QTc 435, normal axis with non-specific ST changes in V1/V2 and possible ST depression in V4-V6, and TWI in V4-V6,II, and III with flattening in lead III that all are changes from from 08/27/18 12/16/18 18:49 We faxed these ekgs to Dr. Bingham who agreed that these changes were new and told us to order one unity of PRBCs, Plavix, and to trend the troponins. We will Defer these changes to Dr. Stuart and Dr. Puckett. 12/16/18 19:[address] Patient [address] out out [address] Villalobos. <Carmelina Patel - Last Filed: 12/16/18 19:23> *DC/Admit/Observation/Transfer - Discharge Dispostion Decision to Admit order: Yes <Rashad Corona - Last Filed: 12/16/18 18:11> <Carmelina Patel - Last Filed: 12/16/18 19:23> Diagnosis at time of Disposition: Diarrhea Qualifiers: Diarrhea type: unspecified type Qualified Code(s): R19.7 - Diarrhea, unspecified - Discharge Dispostion Condition at time of disposition: Stable
--- NOTE | 2018-12-16 14:32 | PDOC ---
Attending Attestation - Medical Decision Making Documentation prepared by AYLA Ashley, acting as medical insurance claims processor for Rashad Corona MD. 12/16/18 21:49 <Livier Rodriguez - Last Filed: 12/16/18 21:49> - Resident Resident Name: Carmelina Patel - ED Attending Attestation I have performed the following: I have examined & evaluated the patient, The case was reviewed & discussed with the resident, I agree w/resident's findings & plan, Exceptions are as noted - HPI HPI: 12/23/18 09:40 see below - Physicial Exam PE: 12/16/18 16:32 GENERAL: The patient is awake, alert, and fully oriented, Nontoxic - in no acute distress. HEAD: Normocephalic, atraumatic. EYES: extraocular movements intact, sclera anicteric, conjunctiva clear. ENT: Normal voice, Moist mucous membranes. NECK: Normal range of motion, supple LUNGS: scant rales at R base HEART: Regular rate and rhythm, normal S1 and S2 without murmur, rub or gallop. ABDOMEN: Soft, nontender, normoactive bowel sounds. No guarding, no rebound. . No CVA tenderness EXTREMITIES: Normal range of motion, no edema. No clubbing or cyanosis. No cords, erythema, or tenderness. NEUROLOGICAL: No facial assymetry, Normal speech, PSYCH: Normal mood, normal affect. SKIN: Warm, Dry, normal turgor, - Medical Decision Making 12/16/18 16:09 73yF hx of MM (dx 4 years ago, currently on chemo, Onc: Dr. Stuart), htn, htn, hypothyroidism presents for rectal bleeding, notes that when she wipes her stool , she notices some blood. She also had an episode where she stood up and noticed a large amount of blood. She denies any abd pain, nv, f/c. notes that she has had approx 1 month of watery, non bloody non melanotic diarrhea. Pt also endorses mild sob/escoto for the past 2 weeks. denies any fever/chills, n/v. rectal bleeding may be secondary to recent diarrhea/hemorroidal in nature. will r/o acs for her sob, puilm exam clear willr/o pna wtih cxr 12/16/18 18:[address] stuart requests admission for further management <Rashad Corona - Last Filed: 12/23/18 09:41> Heart Score/ECG Review - ECG Impressions Comment:: 12/16/18 18:12 Twelve-lead EKG was performed and reviewed by me. There is normal sinus rhythm with a normal rate. rate of 107 axis is normal twi in lateral leads <Rashad Corona - Last Filed: 12/23/18 09:41>
[2018-12-16 15:37] LABS: BASO % 0.2 % (0-2.0); HEMATOCRIT 26.4 % (32.4-45.2); HEMOGLOBIN 8.9 GM/dL (10.7-15.3); LYMPH % 19.3 % (8-40); MCH 31.1 pg (25.7-33.7); MCHC 33.8 g/dl (32.0-36.0); MEAN CELL VOLUME 92.1 fl (80-96); MEAN PLT VOLUME 10.1 fl (7.5-11.1); MONO % 12.2 % (3.8-10.2); NEUT % 68.3 % (42.8-82.8); PLATELET COUNT 157 K/MM3 (134-434); RBC 2.87 M/mm3 (3.60-5.2); RDW 18.6 % (11.6-15.6); WHITE BLOOD COUNT 5.3 K/mm3 (4.0-10.0)
[2018-12-16 15:41] LABS: INR 1.16 (0.83-1.09); PROTHROMBIN TIME (PATIENT) 13.7 SEC (9.7-13.0)
[2018-12-16 15:45] LABS: ALBUMIN 1.6 g/dl (3.4-5.0); ALK PHOS 62 U/L (45-117); ANION GAP 11 MMOL/L (8-16); BILIRUBIN,TOTAL 0.4 mg/dL (0.2-1); BLOOD UREA NITROGEN 32 mg/dL (7-18); CALCIUM 8.1 mg/dL (8.5-10.1); CHLORIDE 112 mmol/L (98-107); CO2 20 mmol/L (21-32); CREATININE 1.1 mg/dL (0.55-1.3); GLUCOSE,RANDOM 87 mg/dL (74-106); SGOT/AST 18 U/L (15-37); SGPT/ALT 19 U/L (13-61); SODIUM 143 mmol/L (136-145)
--- NOTE | 2018-12-16 18:08 | CONSULT ---
Consult - text type - Consultation Consultation Note: Patient seen and examined 73 y/o patient with with myeloma/amyloidosis here with rectal bleeding. Reports diarrhea > 1week. also reports rectal bleeding Denies fever/chills/cough/SOB Denies abdominal pain/nausea/vomiting/urinary symptoms PMH HTN Amyloidosis/Multiple myeloma AFVSS Cor: RSR, No murmurs, No gallops Lungs: Clear to P&A Abd: Soft, Normal bowel sounds, No organomegaly Ext:1+ edema b/l Abnormal Lab Results 12/16/18 15:09 Crossmatch See Detail Meds/Labs reviewed A/P 73 y/o patient wih myeloma and amyloidosis, on velcade/cytoxan/dexamethasone comes in with rectal bleeding, noted to have + troponin For PRBC transfusion Cardiology consult/GI consult Check cultures/c.diff, stool O and P discussed with ER team
--- NOTE | 2018-12-16 19:32 | CONSULT ---
Consult - text type - Consultation Consultation Note: Case discussed with dr. Patel EKGs, charts reviewed ekg changes - widening QRS lateral st depressions positive TNI's ( in the range of prior elevations) admitted with diarrhea developed mild cp. Rec serial ekgs ant tnis 1 unit of PRBC to increase hct to 30% Lopressor 25 BID ASA 325 Plavix [address] Ordonez
--- NOTE | 2018-12-16 20:22 | PDOC ---
*Physical Exam - Vital Signs Last Vital Signs Temp Pulse Resp BP Pulse Ox 98.8 F 113 H 16 107/72 96 12/16/18 14:05 12/16/18 16:14 12/16/18 16:14 12/16/18 16:14 12/16/18 16:14 ED Treatment Course - LABORATORY CBC & Chemistry Diagram: 12/16/18 15:09 12/16/18 15:09 - ADDITIONAL ORDERS Additional order review: Laboratory Results 12/16/18 12/16/18 12/16/18 15:09 15:09 15:09 PT with INR INR Sodium 143 Potassium 4.0 Chloride 112 H Carbon Dioxide 20 L Anion Gap 11 BUN 32 H Creatinine 1.1 Creat Clearance w eGFR 48.55 Random Glucose 87 Calcium 8.1 L Total Bilirubin 0.4 AST 18 ALT 19 Alkaline Phosphatase 62 Troponin I 0.16 H Total Protein 7.0 Albumin 1.6 L Stool Occult Blood Negative Blood Type B POSITIVE Antibody Screen Negative Crossmatch See Detail 12/16/18 15:09 PT with INR 13.70 H INR 1.16 H Sodium Potassium Chloride Carbon Dioxide Anion Gap BUN Creatinine Creat Clearance w eGFR Random Glucose Calcium Total Bilirubin AST ALT Alkaline Phosphatase Troponin I Total Protein Albumin Stool Occult Blood Blood Type Antibody Screen Crossmatch 12/16/18 15:09 RBC 2.87 L MCV 92.1 MCHC 33.8 RDW 18.6 H MPV 10.1 Neutrophils % 68.3 Lymphocytes % 19.3 Monocytes % 12.2 H Eosinophils % 0.0 D Basophils % 0.2 Medical Decision Making - Medical Decision Making 12/16/18 20:21 Case d/w Dr Stuart, agrees with plan for 1 unit PRBC. Will consent, transfuse. *DC/Admit/Observation/Transfer Diagnosis at time of Disposition: Diarrhea Qualifiers: Diarrhea type: unspecified type Qualified Code(s): R19.7 - Diarrhea, unspecified - Discharge Dispostion Condition at time of disposition: Stable - Referrals - Patient Instructions - Post Discharge Activity
[2018-12-16] MEDS ORDERED: DEXTROSE 5%-0.45% SALINE 1,000 ML IV SCH (23:30)
[2018-12-17] MEDS ORDERED: FUROSEMIDE 40 MG/4 ML INJECTABLE VIAL IVPUSH ONE (01:00)
[2018-12-17] MEDS ORDERED: GABAPENTIN 100 MG CAPSULE (FP) PO SCH (06:00)
[2018-12-17 06:40] LABS: BASO % 0.3 % (0-2.0); EOS % 0.1 % (0-4.5); HEMATOCRIT 24.2 % (32.4-45.2); LYMPH % 25.8 % (8-40); MCH 30.7 pg (25.7-33.7); MEAN CELL VOLUME 92.8 fl (80-96); MONO % 12.5 % (3.8-10.2); NEUT % 61.3 % (42.8-82.8); PLATELET COUNT 141 K/MM3 (134-434); RBC 2.61 M/mm3 (3.60-5.2); RDW 18.7 % (11.6-15.6); WHITE BLOOD COUNT 3.2 K/mm3 (4.0-10.0)
[2018-12-17 06:51] LABS: ALBUMIN 1.3 g/dl (3.4-5.0); ALK PHOS 55 U/L (45-117); ANION GAP 6 MMOL/L (8-16); BILIRUBIN,TOTAL 0.5 mg/dL (0.2-1); BLOOD UREA NITROGEN 31 mg/dL (7-18); CALCIUM 8.1 mg/dL (8.5-10.1); CHLORIDE 111 mmol/L (98-107); CO2 23 mmol/L (21-32); CREATININE 0.9 mg/dL (0.55-1.3); GLUCOSE,RANDOM 67 mg/dL (74-106); SGOT/AST 19 U/L (15-37); SGPT/ALT 17 U/L (13-61); SODIUM 141 mmol/L (136-145); TOT PROT 6.4 g/dl (6.4-8.2)
[2018-12-17] MEDS ORDERED: LEVOTHYROXINE NA 50 MCG TABLET (FP) PO SCH (07:00)
[2018-12-17] MEDS: LEVOTHYROXINE NA 50 MCG TABLET (FP) PO SCH (07:05)
[2018-12-17] MEDS ORDERED: ASPIRIN 325 MG TABLET PO ONE (08:51)
[2018-12-17] MEDS ORDERED: HEPARIN NA (PORCINE) 5,000 UNITS/ML 1ML VIAL IVPUSH PRN ×2 (08:52)
--- NOTE | 2018-12-17 08:59 | CON.CARD ---
Consult Consult Specialty:: Cardiology Referred by:: Dr. Puckett Reason for Consultation:: + TNI - History of Present Illness Chief Complaint: Palpitations and chest Pain History of Present Illness: 73 F HTN, HL, Multiple Myeloma on chemo presented to ER with ongoing diarrhea and with BRBPR (one episode) yesterday. While walking to bathroom last evening in hospital felt palpitations, SOB and associated chest tightness. Described as pressure, lasted 5 minutes. ECG showed new ST depressions laterally, tachycardic. Tele also showed one episode of PAF at around 130 bpm. She has had intermittent palpitations the last few weeks. CK is normal, but TnI is mildly elevated. CXR shows increased PVC and she has rales on exam. Describes worsened b/l LE edema last 1-2 weeks. No fever, chills. No abdominal pain. Had a BM last night and reports there was no blood; she escoto shave hemorrhoids. - History Source History Provided By: Patient, Medical Record - Past Medical History Cardio/Vascular: Yes: HTN, Hyperlipdemia Pulmonary: Yes: Asthma Gastrointestinal: Yes: Other (hiatal hernia) Renal/: Yes: Renal Inusuff, Other (proteinuria) ...: No Heme/Onc: Yes: Other (Multiple Myeloma) Psych: Yes: Depression Endocrine: Yes: Hypothyroidism - Past Surgical History Past Surgical History: Yes: Breast Biopsy (right for cysts), Hernia Repair ( laparoscopic hiatal), Hysterectomy, Tubal Ligation - Alcohol/Substance Use Hx Alcohol Use: No History of Substance Use: reports: None - Smoking History Smoking history: Former smoker Have you smoked in the past 12 months: No Aproximately how many cigarettes per day: 0 If you are a former smoker, when did you quit?: 1987 - Social History ADL: Independent History of Recent Travel: No Home Medications - Allergies Allergies/Adverse Reactions: Allergies Allergy/AdvReac Type Severity Reaction Status Date / Time Penicillins Allergy Severe Rash Verified 12/16/18 14:05 - Home Medications Home Medications: Ambulatory Orders Gabapentin 300 mg PO TID 06/14/13 Atorvastatin Ca [Lipitor] 40 mg PO HS 10/11/18 Diltiazem Cd [Cardizem Cd -] 240 mg PO DAILY 10/11/18 Ranger-3/Dha/Epa/Fish Oil [Ranger 3 500 Softgel] 1 each PO DAILY 10/11/18 Allopurinol [Zyloprim -] 300 mg PO DAILY #30 tablet 11/09/18 Levothyroxine [Synthroid -] 50 mcg PO DAILY@0700 #30 tablet 11/09/18 Pantoprazole Sodium [Protonix -] 40 mg PO DAILY #30 tablet.ec 11/09/18 Polyethylene Glycol 3350 [Miralax 119 gm Btl -] 17 gm PO DAILY #1 bottle Atovaquone 1,500 mg PO DAILY #300 ml 11/10/18 Family Disease History - Family Disease History Family Disease History: CA: Daughter (1 passed at 14yo of Hodgkin's lymphoma; 1 passed at 48 of lupus), Other: Daughter Review of Systems Findings/Remarks: see HPI - Review of Systems Constitutional: reports: No Symptoms Eyes: reports: No Symptoms HENT: reports: No Symptoms Neck: reports: No Symptoms Cardiovascular: reports: Chest Pain, Palpitations, Shortness of Breath Respiratory: reports: SOB on Exertion Gastrointestinal: reports: Rectal Bleeding (one episode yesterday in setting of diarrhea) Genitourinary: reports: No Symptoms Breasts: reports: No Symptoms Reported Musculoskeletal: reports: No Symptoms Integumentary: reports: No Symptoms Neurological: reports: No Symptoms Endocrine: reports: No Symptoms Hematology/Lymphatic: reports: No Symptoms - Risk Factors Known Risk Factors: Yes: Hypercholesterolemia, Hypertension, Smoking Vital Signs: Vital Signs Temperature 98.2 F 12/17/18 05:34 Pulse Rate 101 H 12/17/18 05:34 Respiratory Rate 16 12/17/18 05:34 Blood Pressure 100/60 12/17/18 05:34 O2 Sat by Pulse Oximetry (%) 91 L 12/17/18 00:54 Constitutional: Yes: Calm Eyes: Yes: Conjunctiva Clear Respiratory: Yes: Rales (bibasilar rales.) Gastrointestinal: Yes: Soft (nontender, no rebound or guarding) Cardiovascular: Yes: Regular Rate and Rhythm JVD: No Carotid Bruit: No Heart Sounds: Yes: S1, S2 (RRR, no murmurs) Edema: Yes Edema: LLE: 1+ (ankle), RLE: 1+ (ankle) Peripheral Pulses WNL: Yes Neurological: Yes: Alert, Oriented ...Motor Strength: WNL Psychiatric: Yes: WNL - Other Data Labs, Other Data: CBC, BMP 12/17/18 06:00 12/17/18 06:00 INR, PTT INR 1.16 (0.83-1.09) H 12/16/18 15:09 Troponin, BNP 12/16/18 12/16/18 12/17/18 15:09 17:20 06:00 Troponin I 0.16 H Cancelled 0.47 H Troponin, BNP 12/16/18 12/16/18 12/17/18 15:09 17:20 06:00 Troponin I 0.16 H Cancelled 0.47 H Laboratory Tests 12/16/18 12/16/18 12/16/18 15:09 15:09 15:09 WBC Hgb Plt Count PT with INR 13.70 H INR 1.16 H PTT (Actin FS) Sodium Potassium BUN Creatinine AST 18 ALT Alkaline Phosphatase Troponin I 0.16 H Stool Occult Blood Negative 12/16/18 12/17/18 12/17/18 18:15 06:00 06:00 WBC 3.2 L Hgb 8.0 L Plt Count 141 PT with INR INR PTT (Actin FS) 34.1 Sodium 141 Potassium 4.0 BUN 31 H Creatinine 0.9 AST 19 ALT 17 Alkaline Phosphatase 55 Troponin I Stool Occult Blood 12/17/18 06:00 WBC Hgb Plt Count PT with INR INR PTT (Actin FS) Sodium Potassium BUN Creatinine AST ALT Alkaline Phosphatase Troponin I 0.47 H Stool Occult Blood ST 110bpm. Lateral ST depressions, new from 10/[address] depressions, Chronic. Echo: Pending Stress Echo: Other (Nuclear stress 10/2018 (Nadia) no ischemia) Ejection Fraction %: LVEF > or = 40 % Imaging - Results Chest X-ray: Image Reviewed ([facility]) EKG: Image Reviewed Problem List - Problems (1) Elevated troponin Code(s): R74.8 - ABNORMAL LEVELS OF OTHER SERUM ENZYMES (2) PAF (paroxysmal atrial fibrillation) Code(s): I48.0 - PAROXYSMAL ATRIAL FIBRILLATION (3) CHF (congestive heart failure) Code(s): I50.9 - HEART FAILURE, UNSPECIFIED Qualifiers: Heart failure chronicity: unspecified (4) Anemia Code(s): D64.9 - ANEMIA, UNSPECIFIED Qualifiers: Anemia type: unspecified type Qualified Code(s): D64.9 - Anemia, unspecified (5) Multiple myeloma Code(s): C90.00 - MULTIPLE MYELOMA NOT HAVING ACHIEVED REMISSION Qualifiers: Multiple myeloma remission status: not in remission Qualified Code(s): C90.00 - Multiple myeloma not having achieved remission (6) Diarrhea Code(s): R19.7 - DIARRHEA, UNSPECIFIED Qualifiers: Diarrhea type: unspecified type Qualified Code(s): R19.7 - Diarrhea, unspecified (7) Rectal bleed Assessment/Plan: Suspected hemorrhoidal Code(s): K62.5 - HEMORRHAGE OF ANUS AND RECTUM Assessment/Plan IMP: 1. Elevated TnI in setting of CHF and marked anemia, likely demand ischemia 2. PAF 3. Diarrhea, possibly infectious 4. Rectal bleeding, acute blood loss anemia REC: 1. Telemetry to monitor for recurrent PAF (short self limited episode in setting of decompensated CHF). If recurrent/persistent, may need to consider starting UFH gtts. For now will hold on full AC in setting of acute blood loss and decreased H/H requiring PRBCs 2. Diurese as BP allows. Will receive dose IV Lasix after PRBCs and would recommend daily dosing with daily weights and close monitoring renal fx 3. Echo to assess EF, wall motion. 4. Transfuse to Hb > 8 and follow serial H/H while monitoring for further bleeding. Suspect initial event may have been hemorrhoidal, but decrease in H/H from baseline. 5. Elevated TnI, ST changes likely secondary to demand ischemia in setting anemia, CHF. -Transfuse -Diurese -Heart rate control (on Cardizem CD); will switch to short acting q6h as BP is trending lower than baselin. -ASA therapy for now (may need full AC with UFH gtts pending clinical course, TnI trend and if recurrent AF noted) -Serial cardiac enzymes/ECGs/telemtry 6. Further w/u diarrhea/rectal bleeding and per PMD and Oncology Will follow.
[2018-12-17] MEDS ORDERED: HEPARIN - 25,000 UNIT in SODIUM CHLORIDE 495 ML IV SCH (09:00)
[2018-12-17] MEDS ORDERED: FUROSEMIDE 40 MG/4 ML INJECTABLE VIAL IVPUSH SCH (10:00)
[2018-12-17] MEDS ORDERED: PANTOPRAZOLE 40 MG TABLET (FP) PO SCH ×2 (10:00)
[2018-12-17] MEDS: ALLOPURINOL 300 MG TABLET (FP) PO SCH (10:25)
--- NOTE | 2018-12-17 10:58 | ECHO ---
Name: SHERRY SIMPSON Exam:Adult Echocardiogram Study Date: 12/17/2018 09:23 AM Age: 73 yrs Reason For Study: STAT NSTEMI Height: 64 in Weight: 152 lb BSA: 1.7 m2 MMode/2D Measurements & Calculations IVSd: 0.94 cm Ao root diam: 2.6 cm LVIDd: 5.0 cm LA dimension: 3.9 cm LVIDs: 3.8 cm LVPWd: 0.72 cm EDV(Teich): 120.8 ml TAPSE: 2.8 cm ESV(Teich): 63.6 ml Doppler Measurements & Calculations MV E max carlos: 85.4 cm/sec Ao V2 max: 194.9 cm/sec MV A max carlos: 84.9 cm/sec Ao max P.2 mmHg MV E/A: 1.0 MV dec time: 0.12 sec LV V1 max P.8 mmHg MR max carlos: 301.0 cm/sec LV V1 max: 83.6 cm/sec MR max P.2 mmHg TR max carlos: 236.6 cm/sec Med Peak E' Carlos: 9.7 cm/sec TR max P.8 mmHg Med E/e': 8.8 Lat Peak E' Carlos: 13.2 cm/sec Lat E/e': 6.5 Left Ventricle Left ventricular systolic function is mildly reduced. Ejection Fraction = 45-50%. There is basal ante rior wall mild hypokinesis. There is mid anterior wall mild hypokinesis. There is apical anterior wall mild hyp okinesis. There is apical septal wall mild hypokinesis. Right Ventricle The right ventricle is normal in size and function. Atria The left atrium is borderline dilated. Mitral Valve The mitral valve is grossly normal. There is no mitral valve stenosis. There is no mitral regurgitati on noted. Tricuspid Valve The tricuspid valve is not well visualized, but is grossly normal. There is mild tricuspid regurgitat ion. Right ventricular systolic pressure is normal. Aortic Valve The aortic valve opens well. No hemodynamically significant valvular aortic stenosis. No aortic regur gitation is present. Pulmonic Valve The pulmonic valve is not well seen, but is grossly normal. There is no pulmonic valvular stenosis. Great Vessels The aortic root is normal size. Pericardium/Pleura Trivial pericardial effusion not hemodynamically significant. Interpretation Summary There is basal anterior wall mild hypokinesis. There is mid anterior wall mild hypokinesis. There is apical anterior wall mild hypokinesis. There is apical septal wall mild hypokinesis. Left ventricular systolic function is mildly reduced. Ejection Fraction = 45-50%. The right ventricle is normal in size and function. The left atrium is borderline dilated. There is mild tricuspid regurgitation. Right ventricular systolic pressure is normal. Trivial pericardial effusion not hemodynamically significant MD Raad Gardner 12/17/2018 10:58 AM
--- NOTE | 2018-12-17 11:40 | PN ---
Physical Exam: SUBJECTIVE: Patient seen and examined; ON had episode of chest pain that resulted in positive troponin with widened qrs with lat. st depression; was given full dose ASA. No episodes of rectal bleeding while in hospital. Getting 1UPRBC OBJECTIVE: Vital Signs Period Temp Pulse Resp BP Sys/Moss Pulse Ox Last 24 Hr 98.1 F-99 F 98-114 16-20 95-143/53-88 91-100 GENERAL: The patient is awake, alert, and fully oriented, in no acute distress. HEAD: Normal with no signs of trauma. EYES: PERRL, extraocular movements intact, sclera anicteric, conjunctiva clear. No ptosis. Mouth: moist mucus membranes NECK: Trachea midline, full range of motion, supple. LUNGS: Breath sounds equal, clear to auscultation bilaterally, no wheezes, no crackles, no accessory muscle use. Breast and axilla; palpation did not reveal any masses/lumps/pain, no nipple discharge HEART: Regular rate and rhythm, S1, S2 without murmur, rub or gallop. ABDOMEN: Soft, nontender, nondistended, normoactive bowel sounds, no guarding, no rebound, no hepatosplenomegaly, no masses. EXTREMITIES: 2+ pulses, warm, well-perfused, no edema. NEUROLOGICAL: Cranial nerves II through XII grossly intact. Normal speech, gait not observed. PSYCH: Normal mood, normal affect. SKIN: Warm, dry, normal turgor, no rashes or lesions noted Laboratory Results - last 24 hr 12/16/18 12/16/18 12/16/18 15:09 15:09 15:09 WBC 5.3 RBC 2.87 L Hgb 8.9 L Hct 26.4 L MCV 92.1 MCH 31.1 MCHC 33.8 RDW 18.6 H Plt Count 157 MPV 10.1 Absolute Neuts (auto) 3.6 Neutrophils % 68.3 Lymphocytes % 19.3 Monocytes % 12.2 H Eosinophils % 0.0 D Basophils % 0.2 Nucleated RBC % 0 PT with INR 13.70 H INR 1.16 H PTT (Actin FS) Sodium Potassium Chloride Carbon Dioxide Anion Gap BUN Creatinine Creat Clearance w eGFR Random Glucose Calcium Total Bilirubin AST ALT Alkaline Phosphatase Creatine Kinase Troponin I Total Protein Albumin Stool Occult Blood Negative Blood Type Antibody Screen Crossmatch 02/12/16/18 12/16/18 15:09 15:09 17:20 WBC RBC Hgb Hct MCV MCH MCHC RDW Plt Count MPV Absolute Neuts (auto) Neutrophils % Lymphocytes % Monocytes % Eosinophils % Basophils % Nucleated RBC % PT with INR INR PTT (Actin FS) Sodium 143 Potassium 4.0 Chloride 112 H Carbon Dioxide 20 L Anion Gap 11 BUN 32 H Creatinine 1.1 Creat Clearance w eGFR 48.55 Random Glucose 87 Calcium 8.1 L Total Bilirubin 0.4 AST 18 ALT 19 Alkaline Phosphatase 62 Creatine Kinase Troponin I 0.16 H Cancelled Total Protein 7.0 Albumin 1.6 L Stool Occult Blood Blood Type B POSITIVE Antibody Screen Negative Crossmatch See Detail 12/16/18 12/17/18 12/17/18 18:15 06:00 06:00 WBC 3.2 L RBC 2.61 L Hgb 8.0 L Hct 24.2 L MCV 92.8 MCH 30.7 MCHC 33.0 RDW 18.7 H Plt Count 141 MPV 10.0 Absolute Neuts (auto) 2.0 Neutrophils % 61.3 Lymphocytes % 25.8 D Monocytes % 12.5 H Eosinophils % 0.1 D Basophils % 0.3 Nucleated RBC % 0 PT with INR INR PTT (Actin FS) 34.1 Sodium 141 Potassium 4.0 Chloride 111 H Carbon Dioxide 23 Anion Gap 6 L BUN 31 H Creatinine 0.9 Creat Clearance w eGFR > 60 Random Glucose 67 L Calcium 8.1 L Total Bilirubin 0.5 AST 19 ALT 17 Alkaline Phosphatase 55 Creatine Kinase Troponin I Total Protein 6.4 Albumin 1.3 L Stool Occult Blood Blood Type Antibody Screen Crossmatch 12/17/18 12/17/18 06:00 09:55 WBC RBC Hgb Hct MCV MCH MCHC RDW Plt Count MPV Absolute Neuts (auto) Neutrophils % Lymphocytes % Monocytes % Eosinophils % Basophils % Nucleated RBC % PT with INR INR PTT (Actin FS) Sodium Potassium Chloride Carbon Dioxide Anion Gap BUN Creatinine Creat Clearance w eGFR Random Glucose Calcium Total Bilirubin AST ALT Alkaline Phosphatase Creatine Kinase 64 Troponin I 0.47 H 0.56 H Total Protein Albumin Stool Occult Blood Blood Type Antibody Screen Crossmatch Active Medications Generic Name Dose Route Start Last Admin Trade Name Freq PRN Reason Stop Dose Admin Allopurinol 300 mg 12/17/18 10:00 12/17/18 10:25 Zyloprim - PO 300 mg DAILY PABLITO Administration Aspirin 81 mg 12/18/18 10:00 Asa - PO DAILY PABLITO Atorvastatin Calcium 40 mg 12/17/18 22:00 Lipitor - PO HS PABLITO Diltiazem HCl 30 mg 12/17/18 12:00 Cardizem - PO Q6HPO PABLITO Furosemide 20 mg 12/18/18 14:00 Lasix Injection - IVPUSH BID@0600,1400 PABLITO Levothyroxine Sodium 50 mcg 12/17/18 07:00 12/17/18 07:05 Synthroid - PO 50 mcg DAILY@0700 PABLITO Administration Pantoprazole Sodium 40 mg 12/17/18 10:00 12/17/18 10:25 Protonix - PO 40 mg DAILY PABLITO Administration ASSESSMENT/PLAN: 73 year old female with mutlipe myeloma and amyloidosis, on velcade/cytoxan/ decxamethasone who comes in after a one month history of diarrhea and rectal bleeding. She was found to be anemic with a positive troponin and ECG changes after an episode of chest pain. Anemia; acute blood loss with chornic component Mutiple Myeloma amyloidosis CHF CAD ACS vs demand ischemia Troponemia Diarrhea rectal bleeed Hemorrhoids -on velcade/cytoxan/decxamethasone for treatment od MM; may have component to diarrhea and bleed? -getting one UPRBC; keep >8 due to cardiac hx -continue to monitor cbc, troponin and ecg; cannot start on AC due to bleed -cultures/c.diff, stool a and P -cardio and GI consult -will follow Visit type - Emergency Visit Emergency Visit: Yes ED Registration Date: 12/16/18 Care time: The patient presented to the Emergency Department on the above date and was hospitalized for further evaluation of their emergent condition. - New Patient This patient is new to me today: Yes Date on this admission: 12/17/18 - Critical Care Critical Care patient: No
[2018-12-17 11:41] LABS: N-TERMINAL BNP 11864.2 pg/ml (5-125)
[2018-12-17] MEDS: dilTIAZem HCL 30 MG TABLET (FP) PO SCH ×2 (12:16→18:08)
--- NOTE | 2018-12-17 12:29 | CONSULT ---
Consult Consult Specialty:: Nephrology Reason for Consultation:: CKD - History of Present Illness Chief Complaint: blood per rectum History of Present Illness: Pt is a 73 year old female with pmhx of multiple myeloma, amyoid and CKD who presents to the ER with blood per rectum. She has diarrhea for about a month. She has been seeing blood when she wipes. She does have some shortness of breath. She complains of lower ext edema. She was admitted for PRBC transfusion. She denies dysuria or hematuria. She denies fevers or chills. SHe denies nsaid use. - History Source History Provided By: Patient, Medical Record - Past Medical History Cardio/Vascular: Yes: HTN, Hyperlipdemia Pulmonary: Yes: Asthma Gastrointestinal: Yes: Other (hiatal hernia) Renal/: Yes: Renal Inusuff, Other (proteinuria) ...: No Heme/Onc: Yes: Other (multiple myeloma, amyloid) Psych: Yes: Depression Endocrine: Yes: Hypothyroidism - Past Surgical History Past Surgical History: Yes: Breast Biopsy (right for cysts), Hernia Repair ( laparoscopic hiatal), Hysterectomy, Tubal Ligation - Alcohol/Substance Use Hx Alcohol Use: No History of Substance Use: reports: None - Smoking History Smoking history: Former smoker Have you smoked in the past 12 months: No Aproximately how many cigarettes per day: 0 If you are a former smoker, when did you quit?: 1987 - Social History ADL: Independent History of Recent Travel: No Home Medications - Allergies Allergies/Adverse Reactions: Allergies Allergy/AdvReac Type Severity Reaction Status Date / Time Penicillins Allergy Severe Rash Verified 12/16/18 14:05 - Home Medications Home Medications: Ambulatory Orders Gabapentin 300 mg PO TID 06/14/13 Atorvastatin Ca [Lipitor] 40 mg PO HS 10/11/18 Diltiazem Cd [Cardizem Cd -] 240 mg PO DAILY 10/11/18 Fouke-3/Dha/Epa/Fish Oil [Fouke 3 500 Softgel] 1 each PO DAILY 10/11/18 Allopurinol [Zyloprim -] 300 mg PO DAILY #30 tablet 11/09/18 Levothyroxine [Synthroid -] 50 mcg PO DAILY@0700 #30 tablet 11/09/18 Pantoprazole Sodium [Protonix -] 40 mg PO DAILY #30 tablet.ec 11/09/18 Polyethylene Glycol 3350 [Miralax 119 gm Btl -] 17 gm PO DAILY #1 bottle Atovaquone 1,500 mg PO DAILY #300 ml 11/10/18 Family Disease History - Family Disease History Family Disease History: CA: Daughter (1 passed at 14yo of Hodgkin's lymphoma; 1 passed at 48 of lupus), Other: Daughter Review of Systems - Review of Systems Constitutional: reports: Malaise Eyes: reports: No Symptoms HENT: reports: No Symptoms Neck: reports: No Symptoms Respiratory: reports: SOB on Exertion Gastrointestinal: reports: No Symptoms, Rectal Bleeding Genitourinary: reports: No Symptoms Integumentary: reports: No Symptoms Neurological: reports: No Symptoms Endocrine: reports: No Symptoms Physical Exam Vital Signs: Vital Signs Temperature 99 F 12/17/18 09:00 Pulse Rate 104 H 12/17/18 09:00 Respiratory Rate 18 12/17/18 09:00 Blood Pressure 95/53 L 12/17/18 09:00 O2 Sat by Pulse Oximetry (%) 91 L 12/17/18 09:00 Constitutional: Yes: Calm Eyes: Yes: Conjunctiva Clear HENT: Yes: Atraumatic Neck: Yes: Supple Cardiovascular: Yes: S1, S2 Respiratory: Yes: On Nasal O2, SOB on Exertion Gastrointestinal: Yes: Soft Renal/: Yes: WNL Extremities: Yes: WNL Edema: Yes Edema: LLE: 1+, RLE: 1+ Neurological: Yes: Oriented Psychiatric: Yes: Oriented Labs: CBC, BMP 12/17/18 06:00 12/17/18 06:00 Laboratory Tests 12/16/18 12/16/18 12/17/18 15:09 15:09 06:00 Hgb 8.9 L 8.0 L Sodium Potassium Carbon Dioxide 20 L BUN 32 H Creatinine 1.1 Calcium 8.1 L Troponin I 0.16 H B-Natriuretic Peptide 12/17/18 12/17/18 12/17/18 06:00 06:00 09:55 Hgb Sodium 141 Potassium 4.0 Carbon Dioxide 23 BUN 31 H Creatinine 0.9 Calcium 8.1 L Troponin I 0.47 H 0.56 H B-Natriuretic Peptide 78972.2 H Problem List - Problems (1) Anemia Code(s): D64.9 - ANEMIA, UNSPECIFIED Qualifiers: Anemia type: unspecified type Qualified Code(s): D64.9 - Anemia, unspecified (2) CHF (congestive heart failure) Code(s): I50.9 - HEART FAILURE, UNSPECIFIED Qualifiers: Heart failure chronicity: unspecified (3) Rectal bleed Code(s): K62.5 - HEMORRHAGE OF ANUS AND RECTUM Assessment/Plan Current Medications Generic Name Dose Route Start Last Admin Trade Name Freq PRN Reason Stop Dose Admin Allopurinol 300 mg 12/17/18 10:00 12/17/18 10:25 Zyloprim - PO 300 mg DAILY PABLITO Administration Aspirin 81 mg 12/18/18 10:00 Asa - PO DAILY PABLITO Atorvastatin Calcium 40 mg 12/17/18 22:00 Lipitor - PO HS PABLITO Diltiazem HCl 30 mg 12/17/18 12:00 12/17/18 12:16 Cardizem - PO Not Given Q6HPO PABLITO Furosemide 20 mg 12/17/18 14:00 Lasix Injection - IVPB BID@0600,1400 [facility] Levothyroxine Sodium 50 mcg 12/17/18 07:00 12/17/18 07:05 Synthroid - PO 50 mcg DAILY@0700 PABLITO Administration Pantoprazole Sodium 40 mg 12/17/18 10:00 12/17/18 10:25 Protonix - PO 40 mg DAILY PABLITO Administration Impression 1. proteinuria 2. multiple myeloma 3. amyloid 4. blood per rectum 5. htn 6. HLD 7. hypothyroidism 8. anemia 9. CKD Plan - transfuse prbc - agree with lasix - monitor lytes - oncology follow up - check ua w
--- NOTE | 2018-12-17 13:02 | EKG ---
Test Reason : Blood Pressure : / mmHG Vent. Rate : 096 BPM Atrial Rate : 096 BPM P-R Int : 146 ms QRS Dur : 104 ms QT Int : 346 ms P-R-T Axes : 051 -27 184 degrees QTc Int : 437 ms NORMAL SINUS RHYTHM ABNORMAL ECG WHEN COMPARED WITH ECG OF 16-DEC-2018 16:55, NO SIGNIFICANT CHANGE WAS FOUND Confirmed by MELISSA WHITE MD ([id number]) on 12/17/2018 1:02:01 PM Referred By: ALVAREZ BOWLES Confirmed By:MELISSA WHITE MD
--- NOTE | 2018-12-17 13:02 | EKG ---
Test Reason : Blood Pressure : / mmHG Vent. Rate : 110 BPM Atrial Rate : 110 BPM P-R Int : 156 ms QRS Dur : 110 ms QT Int : 322 ms P-R-T Axes : 055 -18 191 degrees QTc Int : 435 ms SINUS TACHYCARDIA POSSIBLE LEFT ATRIAL ENLARGEMENT POSSIBLE ANTERIOR INFARCT (CITED ON OR BEFORE 27-OCT-2018) ABNORMAL ECG WHEN COMPARED WITH ECG OF 27-OCT-2018 16:19, QUESTIONABLE CHANGE IN QRS DURATION QUESTIONABLE CHANGE IN INITIAL FORCES OF SEPTAL LEADS Confirmed by MELISSA WHITE MD ([id number]) on 12/17/2018 1:02:20 PM Referred By: Confirmed By:MELISSA WHITE MD
[2018-12-17 13:18] VITALS: BMI 26.1
--- NOTE | 2018-12-17 13:33 | CONSULT ---
Consultation: REQUESTING PROVIDER: CONSULT REQUEST: We have been asked to medically evaluate this patient for ICU admission due to EKG changes, and tenuous blood pressures in setting of GI bleed. HISTORY OF PRESENT ILLNESS: Patient is a 73 year old female with history of multiple myeloma, amyloidosis, chronic anemia, hypertension, hyperlipidemia, hypothyroidism, gastroesophageal reflux, presented to [facility] with complaint of bright red blood per rectum ongoing for the past month. She endorses that she normally has one soft brown- colored bowel movement daily, however over the past month she had increase to 6-7 loosely formed brown colored bowel movements with alejandrina red blood noted in toilet bowl, and on tissue paper. She was prompted to [facility] due to increased amount of rectal bleeding that did not cease after a bowel movement. Her last bowel movement was 12/16. She denies prior occurrence of alejandrina red blood with bowel movements. Patient denies taking aspirin or NSAIDs at home. She denies any recent changes in her medications. Currently, she denies chest pain, palpitations, abdominal pain, nausea, vomiting. Patient endorses last colonoscopy 5 years ago without significant findings. Unsure of prior endoscopy. Past surgical history: Hiatal hernia repair (one year ago), hysterectomy, bilateral tubal ligation. Family history: Mother: due to [place] at 78 years old Father: Prostate cancer, at 94 years old Allergies: Penicillin Social: Lives in [place] with son, and grandchildren. 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 Former smoker. Admits 3-5 cigarettes/ day for approx 10 years. Quit 1977. Drinks alcohol (1- 2 drinks) on special occasion. Ambulates with cane. Able to walk from kitchen to bathroom. Limited by "heaviness" and swelling within lower extremities. REVIEW OF SYSTEMS: CONSTITUTIONAL: Admits; generalized weakness. Absent: fever, chills, diaphoresis, malaise, loss of appetite, weight change HEENT: Absent: rhinorrhea, nasal congestion, throat pain, throat swelling, difficulty swallowing, mouth swelling, ear pain, eye pain, visual changes CARDIOVASCULAR: Absent: chest pain, syncope, palpitations, irregular heart rate, lightheadedness , peripheral edema RESPIRATORY: Absent: cough, shortness of breath, dyspnea with exertion, orthopnea, wheezing, stridor, hemoptysis GASTROINTESTINAL: Admits: hematochezia. Absent: abdominal pain, abdominal distension, nausea, vomiting, diarrhea, constipation, melena. GENITOURINARY: Absent: dysuria, frequency, urgency, hesitancy, hematuria, flank pain, genital pain MUSCULOSKELETAL: Absent: myalgia, arthralgia, joint swelling, back pain, neck pain SKIN: Absent: rash, itching, pallor HEMATOLOGIC/IMMUNOLOGIC: Absent: easy bleeding, easy bruising, lymphadenopathy, frequent infections ENDOCRINE: Absent: unexplained weight gain, unexplained weight loss, heat intolerance, cold intolerance NEUROLOGIC: Absent: headache, focal weakness or paresthesias, dizziness, unsteady gait, seizure, mental status changes, bladder or bowel incontinence PSYCHIATRIC: Absent: anxiety, depression, suicidal or homicidal ideation, hallucinations. PHYSICAL EXAMINATION Vital Signs - 24 hr 12/16/18 12/16/18 12/16/18 14:05 16:14 19:15 Temperature 98.8 F Pulse Rate 112 H Pulse Rate [ 113 H Right] Respiratory 16 16 Rate Blood Pressure 117/72 Blood Pressure 107/72 [Left Arm] O2 Sat by Pulse 95 96 97 Oximetry (%) 12/16/18 12/16/18 12/16/18 22:00 22:45 23:00 Temperature 98.2 F 98.1 F Pulse Rate 114 H Pulse Rate [ 98 H Right] Respiratory 18 19 18 Rate Blood Pressure 143/88 Blood Pressure 101/65 [Left Arm] O2 Sat by Pulse 91 L 100 Oximetry (%) 12/16/18 12/17/18 12/17/18 23:20 00:54 05:34 Temperature 98.1 F 98.2 F Pulse Rate 114 H 101 H Pulse Rate [ Right] Respiratory 20 18 16 Rate Blood Pressure 143/88 100/60 Blood Pressure [Left Arm] O2 Sat by Pulse 91 L Oximetry (%) 12/17/18 09:00 Temperature 99 F Pulse Rate 104 H Pulse Rate [ Right] Respiratory 18 Rate Blood Pressure 95/53 L Blood Pressure [Left Arm] O2 Sat by Pulse 91 L Oximetry (%) GENERAL: Awake, alert, and fully oriented, in no acute distress. HEAD: Normocephalic, atraumatic EYES: Pupils equal, round and reactive to light, extraocular movements intact, sclera pale, anicteric, conjunctiva clear bilaterally. EARS, NOSE, THROAT: Oropharynx clear without exudates. Moist mucous membranes. NECK: Normal range of motion, supple without lymphadenopathy, or JVD. Right- sided central venous catheter insertion site noted clean, dry. LUNGS: Good inspiratory effort and air entry bilaterally. Bibasilar crackels auscultated without wheezes. No accessory muscle use. HEART: Regular rate and rhythm, normal S1 and S2 without murmur, rub or gallop. ABDOMEN: Soft, nontender to light and deep palpation, not distended X4 quadrants. Normoactive bowel sounds. No guarding, no rebound tenderness. No hepatomegaly or splenomegaly palpated of percussed. RECTAL: External hemorrhoids visualized circumferentially. Good anal sphincter tone. No stool palpated within rectal vault. No blood noted upon gloved finger. MUSCULOSKELETAL: Normal range of motion at all joints. No bony deformities or tenderness. Strength 5/5 bilateral upper and lower extremities. UPPER EXTREMITIES: 2+ radial pulses bilaterally, warm, well-perfused. No cyanosis. LOWER EXTREMITIES: 2+ dorsalis pedis pulses bilaterally, warm, well-perfused. No calf tenderness. 1+ peripheral edema bilaterally. NEUROLOGICAL: Cranial nerves II-XII intact. Normal speech. PSYCHIATRIC: Cooperative. Good eye contact. Appropriate mood and affect upon my encounter. SKIN: Warm, dry. Laboratory Results - last 24 hr 12/16/18 12/16/18 12/16/18 15: 15:09 15:09 WBC 5.3 RBC 2.87 L Hgb 8.9 L Hct 26.4 L MCV 92.1 MCH 31.1 MCHC 33.8 RDW 18.6 H Plt Count 157 MPV 10.1 Absolute Neuts (auto) 3.6 Neutrophils % 68.3 Lymphocytes % 19.3 Monocytes % 12.2 H Eosinophils % 0.0 D Basophils % 0.2 Nucleated RBC % 0 PT with INR 13.70 H INR 1.16 H PTT (Actin FS) Sodium Potassium Chloride Carbon Dioxide Anion Gap BUN Creatinine Creat Clearance w eGFR Random Glucose Calcium Total Bilirubin AST ALT Alkaline Phosphatase Creatine Kinase Troponin I B-Natriuretic Peptide Total Protein Albumin Stool Occult Blood Negative Blood Type Antibody Screen Crossmatch 12/16/18 12/16/18 12/16/18 15: 15:09 17:20 WBC RBC Hgb Hct MCV MCH MCHC RDW Plt Count MPV Absolute Neuts (auto) Neutrophils % Lymphocytes % Monocytes % Eosinophils % Basophils % Nucleated RBC % PT with INR INR PTT (Actin FS) Sodium 143 Potassium 4.0 Chloride 112 H Carbon Dioxide 20 L Anion Gap 11 BUN 32 H Creatinine 1.1 Creat Clearance w eGFR 48.55 Random Glucose 87 Calcium 8.1 L Total Bilirubin 0.4 AST 18 ALT 19 Alkaline Phosphatase 62 Creatine Kinase Troponin I 0.16 H Cancelled B-Natriuretic Peptide Total Protein 7.0 Albumin 1.6 L Stool Occult Blood Blood Type B POSITIVE Antibody Screen Negative Crossmatch See Detail 12/16/18 12/17/18 12/17/18 18:15 06:00 06:00 WBC 3.2 L RBC 2.61 L Hgb 8.0 L Hct 24.2 L MCV 92.8 MCH 30.7 MCHC 33.0 RDW 18.7 H Plt Count 141 MPV 10.0 Absolute Neuts (auto) 2.0 Neutrophils % 61.3 Lymphocytes % 25.8 D Monocytes % 12.5 H Eosinophils % 0.1 D Basophils % 0.3 Nucleated RBC % 0 PT with INR INR PTT (Actin FS) 34.1 Sodium 141 Potassium 4.0 Chloride 111 H Carbon Dioxide 23 Anion Gap 6 L BUN 31 H Creatinine 0.9 Creat Clearance w eGFR > 60 Random Glucose 67 L Calcium 8.1 L Total Bilirubin 0.5 AST 19 ALT 17 Alkaline Phosphatase 55 Creatine Kinase Troponin I B-Natriuretic Peptide 73488.2 H Total Protein 6.4 Albumin 1.3 L Stool Occult Blood Blood Type Antibody Screen Crossmatch 12/17/18 12/17/18 12/17/18 06:00 06:00 09:55 WBC RBC Hgb Hct MCV MCH MCHC RDW Plt Count MPV Absolute Neuts (auto) Neutrophils % Lymphocytes % Monocytes % Eosinophils % Basophils % Nucleated RBC % PT with INR INR PTT (Actin FS) Sodium Potassium Chloride Carbon Dioxide Anion Gap BUN Creatinine Creat Clearance w eGFR Random Glucose Calcium Total Bilirubin AST ALT Alkaline Phosphatase Creatine Kinase 64 Troponin I 0.47 H 0.56 H B-Natriuretic Peptide Total Protein Albumin Stool Occult Blood Blood Type B POSITIVE Antibody Screen Negative Crossmatch Active Medications Generic Name Dose Route Start Last Admin Trade Name Freq PRN Reason Stop Dose Admin Allopurinol 300 mg 12/17/18 10:00 12/17/18 10:25 Zyloprim - PO 300 mg DAILY [facility] Administration Aspirin 81 mg 12/18/18 10:00 Asa - PO DAILY [facility] Atorvastatin Calcium 40 mg 12/17/18 22:00 Lipitor - PO HS [facility] Diltiazem HCl 30 mg 12/17/18 12:00 12/17/18 12:16 Cardizem - PO Not Given Q6HPO [facility] Furosemide 20 mg 12/17/18 14:00 Lasix Injection - IVPB BID@0600,1400 [facility] Levothyroxine Sodium 50 mcg 12/17/18 07:00 12/17/18 07:05 Synthroid - PO 50 mcg DAILY@0700 [facility] Administration Pantoprazole Sodium 40 mg 12/17/18 10:00 12/17/18 10:25 Protonix - PO 40 mg DAILY [facility] Administration ASSESSMENT/PLAN: Patient is a 73 year old female with history of multiple myeloma, amyloidosis, chronic anemia, hypertension, hyperlipidemia, hypothyroidism, gastroesophageal reflux admitted to ICU due to EKG changes, and tenouous blood pressures in setting of GI bleed. #Neurological -Patient is currently awake, alert, fully oriented. -Monitor for changes in mental status #Cardiovascular -Patient endorsed palpitations yesterday evening when walking to bathroom. States palpitations have resolved today. -EKG shows normal sinus rhythm at 96BPM with new lateral T wave inversions. -Troponin 0.16 --> 0.56 -> 0.49. Likely secondary to demand ischemia -ECHO shows mild hypokinesis within anterior and septal wall. EF 45- 50%. Borderline dilated left atrium. -Cardiology consult (Dr. Ordonez) appreciated. -Cardizem 30mg PO Q6H per cardiology -Telemetry monitoring Coronary artery disease -Aspirin 81mg PO daily -Lipitor 40mg PO daily #Pulmonary -Patient currently saturating 95% on 2L nasal canula -Maintain oxygen saturation greater than 90% -Chest Xray after central venous catheter placement negative for pneumothorax. #Gastrointestinal -Patient endorses bright red blood per rectum over past month, occurring with defecation. Concern for lower GI bleed. Patient has history of external hemorrhoids. -GI consult (Dr. Perkins) appreciated. Patient for colonoscopy once medically cleared. -Follow stool cultures, stool for C. difficile -Protonix 40mg PO BID #Hematologic Acute blood loss anemia -Patient is s/p 1 unit PRBC 12/17 -Hb 9.3/ Hct 27.9 after transfusion; appropriate response to PRBC -Follow CBC. Transfusion threshold 8 -Monitor for signs of active bleeding Multiple myeloma- -Patient followed by Dr. Stuart as outpatient. -Velcade, Cytoxan, Dexamethasone per hematology -Hematology, oncology consult (Dr. Stuart) #Renal -Chronic kidney disease -Follow UA -Lasix 20mg IV BID -Nephrology consult (Dr. Hameed) #Endocrine Hypothyroidism -Synthroid 50mcg PO daily #Infectious disease -ID consult (Dr. Johnson) for prophylaxis recommendations. -Concern for infection given patient has history of multiple myeloma with resulting diminished humoral immunity. #FEN -Patient is s/p 1 unit PRBC. No IV fluids indicated. -Within normal limits. Follow CMP, replete as necessary. -Clear liquid diet Prophylaxis -Holding chemical anticoagulation due to history of GI bleeding. -SCDs bilateral lower extremities #Disposition -We will continue to follow the patient. Thank you for this consultative opportunity. Visit type - Emergency Visit Emergency Visit: Yes ED Registration Date: 12/16/18 Care time: The patient presented to the Emergency Department on the above date and was hospitalized for further evaluation of their emergent condition. - New Patient This patient is new to me today: Yes Date on this admission: 12/17/18 - Critical Care Critical Care patient: Yes Total Critical Care Time (in minutes): 45 Critical Care Statement: The care of this patient involved high complexity decision making to prevent further life threatening deterioration of the patient 's condition and/or to evaluate & treat vital organ system(s) failure or risk of failure.
[2018-12-17] MEDS ORDERED: FUROSEMIDE 100 MG/10 ML INJECTABLE VIAL IVPB SCH (14:00)
--- NOTE | 2018-12-17 14:00 | PN ---
Teaching Attending Note Name of Resident: Rober Tapia ATTENDING PHYSICIAN STATEMENT I saw and evaluated the patient. I reviewed the resident's note and discussed the case with the resident. I agree with the resident's findings and plan as documented. SUBJECTIVE: Patient seen and examined in the ICU. Transferred due to acute anemia due to likely GI bleeding and new EKG changes with (+) troponin. Currently CP free. Hemodynamics are borderline, MAP ranging 60 to 65. Repeat labs are pending. Intake & Output 12/14/18 12/15/18 12/16/18 12/17/18 23:59 23:59 23:59 23:59 Intake Total 100 Balance 100 Weight 152 lb 8 oz 152 lb Last Vital Signs Temp Pulse Resp BP Pulse Ox 99 F 104 H 18 95/53 L 95 12/17/18 09:00 12/17/18 09:00 12/17/18 09:00 12/17/18 09:00 12/17/18 13:47 Active Medications Allopurinol (Zyloprim -) 300 mg PO DAILY [facility] Last Admin: 12/17/18 10:25 Dose: 300 mg Aspirin (Asa -) 81 mg PO DAILY [facility] Atorvastatin Calcium (Lipitor -) 40 mg PO HS [facility] Diltiazem HCl (Cardizem -) 30 mg PO Q6HPO [facility] Last Admin: 12/17/18 12:16 Dose: Not Given Furosemide (Lasix Injection -) 20 mg IVPB BID@0600,1400 [facility] Levothyroxine Sodium (Synthroid -) 50 mcg PO DAILY@0700 [facility] Last Admin: 12/17/18 07:05 Dose: 50 mcg Pantoprazole Sodium (Protonix -) 40 mg PO DAILY [facility] Last Admin: 12/17/18 10:25 Dose: 40 mg Constitutional: Yes: Awake and alert, NAD Eyes: Yes: Conjunctiva Clear HENT: Yes: Atraumatic Neck: Yes: Supple Cardiovascular: Yes: S1, S2 Respiratory: Yes: Bibasilar rales Gastrointestinal: Yes: Soft Renal/: Yes: WNL Extremities: Yes: WNL Edema: Yes Edema: LLE: 1+, RLE: 1+ Neurological: Yes: Oriented Psychiatric: Yes: Oriented Labs: CBC, BMP 12/17/18 06:00 12/17/18 06:00 Laboratory Tests 12/16/18 12/16/18 12/17/18 15:09 15:09 06:00 Hgb 8.9 L 8.0 L Sodium Potassium Carbon Dioxide 20 L BUN 32 H Creatinine 1.1 Calcium 8.1 L Troponin I 0.16 H B-Natriuretic Peptide 12/17/18 12/17/18 12/17/18 06:00 06:00 09:55 Hgb Sodium 141 Potassium 4.0 Carbon Dioxide 23 BUN 31 H Creatinine 0.9 Calcium 8.1 L Troponin I 0.47 H 0.56 H B-Natriuretic Peptide 84250.2 H Problem List - Problems (1) Anemia Code(s): D64.9 - ANEMIA, UNSPECIFIED Qualifiers: Anemia type: unspecified type Qualified Code(s): D64.9 - Anemia, unspecified (2) CHF (congestive heart failure) Code(s): I50.9 - HEART FAILURE, UNSPECIFIED Qualifiers: Heart failure chronicity: unspecified (3) Rectal bleed Code(s): K62.5 - HEMORRHAGE OF ANUS AND RECTUM Assessment/Plan Acute GI bleed AMI Hypotension Proteinuria Multiple myeloma Amyloid HTN HPL Hypothyroidism Anemia CKD Normal transfusion thresholds: reasonable Hgb: at least 8 up to 10 if symptomatic O2 as needed Lasix Follow CXR PPI GI evaluation Check ECHO May need pressors +/- inotropes: will insert CVC Requires ICU monitoring Dr Bacon Critical care time spent in reviewing chart, evaluating patient and formulating plan - 36 minutes.
[2018-12-17 14:48] LABS: HEMATOCRIT 27.9 % (32.4-45.2); HEMOGLOBIN 9.3 GM/dL (10.7-15.3); MCH 30.3 pg (25.7-33.7); MCHC 33.4 g/dl (32.0-36.0); MEAN CELL VOLUME 90.5 fl (80-96); MEAN PLT VOLUME 9.6 fl (7.5-11.1); PLATELET COUNT 136 K/MM3 (134-434); RBC 3.08 M/mm3 (3.60-5.2); RDW 19.2 % (11.6-15.6); WHITE BLOOD COUNT 4.1 K/mm3 (4.0-10.0)
--- NOTE | 2018-12-17 16:21 | CON.GI ---
Consult Consult Specialty:: GI - History of Present Illness History of Present Illness: 73yF hx of MM (dx 4 years ago, currently on chemo, Onc: Dr. Stuart), htn, htn, hypothyroidism presents for rectal bleeding, notes that when she wipes her stool , she notices some blood. She also had an episode where she stood up and noticed a large amount of blood. She denies any abd pain, nv, f/c. notes that she has had approx 1 month of watery, non bloody non melanotic diarrhea. Pt also endorses mild sob/escoto for the past 2 weeks. denies any fever/chills, n/v. Patient transferred to ICU because of EKG changes and mildly elevated troponin. She received 1 unit of PRBC. There was noactive bleeding since yesterday.SHe did not have a recent endoscopy - Past Medical History Cardio/Vascular: Yes: HTN, Hyperlipdemia Pulmonary: Yes: Asthma Gastrointestinal: Yes: Other (hiatal hernia) Renal/: Yes: Renal Inusuff, Other (proteinuria) ...: No Psych: Yes: Depression Endocrine: Yes: Hypothyroidism - Past Surgical History Past Surgical History: Yes: Breast Biopsy (right for cysts), Hernia Repair ( laparoscopic hiatal), Hysterectomy, Tubal Ligation - Alcohol/Substance Use Hx Alcohol Use: No History of Substance Use: reports: None - Smoking History Smoking history: Former smoker Have you smoked in the past 12 months: No Aproximately how many cigarettes per day: 0 If you are a former smoker, when did you quit?: 1987 - Social History ADL: Independent History of Recent Travel: No Home Medications - Allergies Allergies/Adverse Reactions: Allergies Allergy/AdvReac Type Severity Reaction Status Date / Time Penicillins Allergy Severe Rash Verified 12/16/18 14:05 - Home Medications Home Medications: Ambulatory Orders Gabapentin 300 mg PO TID 06/14/13 Atorvastatin Ca [Lipitor] 40 mg PO HS 10/11/18 Diltiazem Cd [Cardizem Cd -] 240 mg PO DAILY 10/11/18 Ripton-3/Dha/Epa/Fish Oil [Ripton 3 500 Softgel] 1 each PO DAILY 10/11/18 Allopurinol [Zyloprim -] 300 mg PO DAILY #30 tablet 11/09/18 Levothyroxine [Synthroid -] 50 mcg PO DAILY@0700 #30 tablet 11/09/18 Pantoprazole Sodium [Protonix -] 40 mg PO DAILY #30 tablet.ec 11/09/18 Polyethylene Glycol 3350 [Miralax 119 gm Btl -] 17 gm PO DAILY #1 bottle Atovaquone 1,500 mg PO DAILY #300 ml 11/10/18 Family Disease History - Family Disease History Family Disease History: [place]: Daughter (1 passed at 14yo of Hodgkin's lymphoma; 1 passed at 48 of lupus), Other: Daughter Review of Systems - Review of Systems Constitutional: denies: No Symptoms, Chills, Diaphoresis, Fever, Lethargy, Loss of Appetite, Malaise, Night Sweats, Unintentional Wgt. Loss, Weakness, Other Eyes: denies: No Symptoms, Blind Spots, Blurred Vision, Double Vision, Eye Pain , Floaters, Photophobia, Recent Change in Vision, Other HENT: denies: No Symptoms, Difficult Swallowing, Ear Discharge, Ear Pain, Epistaxis, Gingival Bleeding, Hearing Loss, Mouth Swelling, Nasal Congestion, Ocular Prosthesis, Throat Pain, Toothache, Ringing in Ears, Other Neck: denies: No Symptoms, Decreased ROM, Lumps, Pain on Movement, Stiffness, Swollen Glands, Tenderness, Other Cardiovascular: denies: No Symptoms, Chest Pain, Edema, Palpitations, Shortness of Breath, Other Gastrointestinal: reports: Rectal Bleeding. denies: Abdominal Pain, Bloating, Diarrhea, Dysphagia, Indigestion, Melena, Vomiting, Vomiting Blood Physical Exam-GI Vital Signs: Vital Signs Temperature 99 F 12/17/18 09:00 Pulse Rate 104 H 12/17/18 09:00 Respiratory Rate 18 12/17/18 09:00 Blood Pressure 95/53 L 12/17/18 09:00 O2 Sat by Pulse Oximetry (%) 95 12/17/18 13:47 Constitutional: Yes: Well Nourished Eyes: Yes: Conjunctiva Clear HENT: Yes: Atraumatic Neck: Yes: Supple Cardiovascular: Yes: Regular Rate and Rhythm Respiratory: Yes: Regular ...Palpate: Yes: Soft. No: Firm/Rigid, Guarding, Hepatomegaly, Mass, Pulsatile Mass, Splenomegaly, Tenderness Labs: CBC, BMP 12/17/18 14:07 12/17/18 06:00 INR, PTT INR 1.16 (0.83-1.09) H 12/16/18 15:09 Home Medications Medication Instructions Recorded Gabapentin 300 mg PO TID 06/14/13 Atorvastatin Ca [Lipitor] 40 mg PO HS 10/11/18 Diltiazem Cd [Cardizem Cd -] 240 mg PO DAILY 10/11/18 Ripton-3/Dha/Epa/Fish Oil [Ripton 3 1 each PO DAILY 10/11/18 500 Softgel] Allopurinol [Zyloprim -] 300 mg PO DAILY #30 tablet 11/09/18 Levothyroxine [Synthroid -] 50 mcg PO DAILY@0700 #30 tablet 11/09/18 Pantoprazole Sodium [Protonix -] 40 mg PO DAILY #30 tablet.ec 11/09/18 Polyethylene Glycol 3350 [Miralax 17 gm PO DAILY #1 bottle 11/09/18 119 gm Btl -] Atovaquone 1,500 mg PO DAILY #300 ml 11/10/18 Assessment/Plan REctal bleeding--resoslved R> will need a colonoscopy iin once medically cleared
[2018-12-17] MEDS: FUROSEMIDE 40 MG/4 ML INJECTABLE VIAL IVPB SCH (16:50)
--- NOTE | 2018-12-17 17:57 | PROC ---
Central Line Insertion Indication: Poor Venous Access, Other (Acute blood loss anemia) Risks and Benefits Explained: Yes Consent on Chart: Yes Central Line: Triple Lumen Catheter Anesthesia: 1% Lidocaine Sterile Technique: Yes Ultrasound Guided Assistance: Yes Position: Right Internal Jugular Post Insertion: Yes: Bilateral Breath Sounds, Bilateral Chest Expansion, Chest X-Ray Ordered Sterile Dressing Applied: Yes
[2018-12-17 18:18] LABS: URINE APPEARANCE SLCLOUDY; URINE BILIRUBIN NEGATIVE (<2.0 mg/dL); URINE COLOR AMBER; URINE GLUCOSE (UA) NEGATIVE (NEGATIVE); URINE KETONE NEGATIVE (NEGATIVE); URINE LEUK ESTERASE NEGATIVE (NEGATIVE); URINE NITRITE NEGATIVE (NEGATIVE); URINE PROTEIN 3+ (NEGATIVE)
[2018-12-17 18:26] LABS: EPI CELLS RARE /HPF (FEW); GRANULAR CASTS 26 /lpf; URINE HYALINE CAST 3 /lpf; URINE MUCUS RARE
--- NOTE | 2018-12-17 18:56 | PN ---
Teaching Attending Note Name of Resident: Saumya Peraza ATTENDING PHYSICIAN STATEMENT I saw and evaluated the patient. I reviewed the resident's note and discussed the case with the resident. I agree with the resident's findings and plan as documented. SUBJECTIVE: Patient seen and examined Denies chest pain or SOB No further rectal bleed ing Seen by GI - consult appreciated Last Vital Signs Temp Pulse Resp BP Pulse Ox 98.4 F 93 H 20 106/65 95 12/17/18 17:00 12/17/18 17:00 12/17/18 17:00 12/17/18 17:00 12/17/18 13:47 HEENT: ZOILA, EOM Intact Oropharynx: No thrush, No mucositis Cor: RSR, No murmurs, No gallops Lungs: Clear to P&A Abd: Soft, Normal bowel sounds, No organomegaly Ext:No significant edema Skin: No rashes, Integument intact CBC, BMP 12/17/18 14:07 12/17/18 06:00 Current Medications Generic Name Dose Route Start Last Admin Trade Name Edgar PRN Reason Stop Dose Admin Allopurinol 300 mg 12/17/18 10:00 12/17/18 10:25 Zyloprim - PO 300 mg DAILY [facility] Administration Aspirin 81 mg 12/18/18 10:00 Asa - PO DAILY [facility] Atorvastatin Calcium 40 mg 12/17/18 22:00 Lipitor - PO HS [facility] Diltiazem HCl 30 mg 12/17/18 12:00 12/17/18 18:08 Cardizem - PO Not Given Q6HPO [facility] Furosemide 20 mg 12/17/18 14:00 12/17/18 16:50 Lasix Injection - IVPB Not Given BID@0600,1400 [facility] Levothyroxine Sodium 50 mcg 12/17/18 07:00 12/17/18 07:05 Synthroid - PO 50 mcg DAILY@0700 [facility] Administration Pantoprazole Sodium 40 mg 12/17/18 22:00 Protonix - PO BID [facility] Impression: Myeloma Amyloid Rectal bleeding Proteinuria Cytoxan/velcade/dex + Troponin Plan : Maintiani Hb > 8 gm% Cardiac monitoring and follow up GI evaluation when medically feasible OBJECTIVE: ASSESSMENT AND PLAN:
[2018-12-17 19:13] LABS: RATIO URIN PROTEIN/URIN CREAT 1.96 MG/DL
--- NOTE | 2018-12-17 19:54 | HP ---
Admitting History and Physical - Past Medical History Cardiovascular: Yes: HTN, Hyperlipdemia Pulmonary: Yes: Asthma Gastrointestinal: Yes: Other (hiatal hernia) Renal/: Yes: Renal Inusuff, Other (proteinuria) ...: No Heme/Onc: Yes: Other (multiple myeloma, amyloid) Psych: Yes: Depression Endocrine: Yes: Hypothyroidism - Past Surgical History Past Surgical History: Yes: Breast Biopsy (right for cysts), Hernia Repair ( laparoscopic hiatal), Hysterectomy, Tubal Ligation - Smoking History Smoking history: Former smoker Have you smoked in the past 12 months: No Aproximately how many cigarettes per day: 0 If you are a former smoker, when did you quit?: 1987 - Alcohol/Substance Use Hx Alcohol Use: No History of Substance Use: reports: None - Social History ADL: Independent History of Recent Travel: No Home Medications - Allergies Allergies/Adverse Reactions: Allergies Allergy/AdvReac Type Severity Reaction Status Date / Time Penicillins Allergy Severe Rash Verified 12/16/18 14:05 - Home Medications Home Medications: Ambulatory Orders Gabapentin 300 mg PO TID 06/14/13 Atorvastatin Ca [Lipitor] 40 mg PO HS 10/11/18 Diltiazem Cd [Cardizem Cd -] 240 mg PO DAILY 10/11/18 Hereford-3/Dha/Epa/Fish Oil [[place]reford 3 500 Softgel] 1 each PO DAILY 10/11/18 Allopurinol [Zyloprim -] 300 mg PO DAILY #30 tablet 11/09/18 Levothyroxine [Synthroid -] 50 mcg PO DAILY@0700 #30 tablet 11/09/18 Pantoprazole Sodium [Protonix -] 40 mg PO DAILY #30 tablet.ec 11/09/18 Polyethylene Glycol 3350 [Miralax 119 gm Btl -] 17 gm PO DAILY #1 bottle Atovaquone 1,500 mg PO DAILY #300 ml 11/10/18 Family Disease History - Family Disease History Family Disease History: [place]: Daughter (1 passed at 14yo of Hodgkin's lymphoma; 1 passed at 48 of lupus), Other: Daughter Physical Examination Vital Signs: Vital Signs Temperature 98.4 F 12/17/18 17:00 Pulse Rate 93 H 12/17/18 17:00 Respiratory Rate 20 12/17/18 17:00 Blood Pressure 106/65 12/17/18 17:00 O2 Sat by Pulse Oximetry (%) 95 12/17/18 13:47 Labs: CBC, BMP 12/17/18 14:07 12/17/18 06:00
[2018-12-17] MEDS: ATORVASTATIN CA 40 MG TABLET (FP) PO SCH (21:21)
[2018-12-17] MEDS: PANTOPRAZOLE 40 MG TABLET (FP) PO SCH (21:21)
[2018-12-17] MEDS ORDERED: PANTOPRAZOLE SODIUM 40 MG VIAL IVPUSH SCH (22:00)
[2018-12-18] MEDS: dilTIAZem HCL 30 MG TABLET (FP) PO SCH ×5 (00:05→23:48)
[2018-12-18 05:16] LABS: IGA IMMUNOGLOBULIN 1653 mg/dL (64-422); IGM IMMUNOGLOBULIN 10 mg/dL (26-217)
[2018-12-18] MEDS: FUROSEMIDE 40 MG/4 ML INJECTABLE VIAL IVPB SCH ×3 (05:47→22:34)
[2018-12-18] MEDS: LEVOTHYROXINE NA 50 MCG TABLET (FP) PO SCH (06:29)
[2018-12-18 07:28] LABS: ALBUMIN 1.2 g/dl (3.4-5.0); ALK PHOS 59 U/L (45-117); ANION GAP 7 MMOL/L (8-16); BILIRUBIN,TOTAL 0.6 mg/dL (0.2-1); BLOOD UREA NITROGEN 28 mg/dL (7-18); CALCIUM 7.7 mg/dL (8.5-10.1); CHLORIDE 112 mmol/L (98-107); CO2 24 mmol/L (21-32); CREATININE 0.9 mg/dL (0.55-1.3); GLUCOSE,RANDOM 89 mg/dL (74-106); MAGNESIUM 2.2 mg/dL (1.8-2.4); PHOSPHOROUS 2.5 mg/dL (2.5-4.9); POTASSIUM 4.1 mmol/L (3.5-5.1); SGOT/AST 18 U/L (15-37); SGPT/ALT 20 U/L (13-61); SODIUM 142 mmol/L (136-145); TOT PROT 6.2 g/dl (6.4-8.2)
--- NOTE | 2018-12-18 08:03 | PN ---
Progress Note, Physician Chief Complaint: Seen and examined ICU H/H bumped, no further bleeding reported TELE: NSR Denies CP - Current Medication List Current Medications: Active Medications Allopurinol (Zyloprim -) 300 mg PO DAILY [facility] Last Admin: 12/17/18 10:25 Dose: 300 mg Aspirin (Asa -) 81 mg PO DAILY [facility] Atorvastatin Calcium (Lipitor -) 40 mg PO HS [facility] Last Admin: 12/17/18 21:21 Dose: 40 mg Diltiazem HCl (Cardizem -) 30 mg PO Q6HPO [facility] Last Admin: 12/18/18 05:47 Dose: Not Given Furosemide (Lasix Injection -) 20 mg IVPB BID@0600,1400 [facility] Last Admin: 12/18/18 05:47 Dose: 20 mg Levothyroxine Sodium (Synthroid -) 50 mcg PO DAILY@0700 [facility] Last Admin: 12/18/18 06:29 Dose: 50 mcg Pantoprazole Sodium (Protonix -) 40 mg PO BID [facility] Last Admin: 12/17/18 21:21 Dose: 40 mg - Objective Vital Signs: Vital Signs Temperature 98.6 F 12/18/18 06:30 Pulse Rate 89 12/18/18 06:30 Respiratory Rate 17 12/18/18 06:30 Blood Pressure 99/63 12/18/18 06:30 O2 Sat by Pulse Oximetry (%) 95 12/17/18 13:47 Constitutional: Yes: Calm Cardiovascular: Yes: Regular Rate and Rhythm Respiratory: Yes: Other (much improved; decreased breath sounds bases) Gastrointestinal: Yes: Soft Edema: No Neurological: Yes: Alert, Oriented ...Motor Strength: WNL Labs: CBC, BMP 12/17/18 14:07 12/18/18 06:00 INR, PTT INR 1.16 (0.83-1.09) H 12/16/18 15:09 Microbiology 12/16/18 17:20 Blood - Peripheral Venous Blood Culture - Preliminary NO GROWTH OBTAINED AFTER 24 HOURS, INCUBATION TO CONTINUE FOR 4 DAYS. 12/16/18 17:10 Blood - Peripheral Venous Blood Culture - Preliminary NO GROWTH OBTAINED AFTER 24 HOURS, INCUBATION TO CONTINUE FOR 4 DAYS. Laboratory Tests 12/16/18 12/17/18 12/17/18 15:09 14:07 14:07 WBC 4.1 Hgb 9.3 L Plt Count 136 Sodium Potassium BUN Creatinine Creatine Kinase 65 Troponin I 0.49 H Stool Occult Blood Negative 12/17/18 12/17/18 12/18/18 20:45 20:45 06:00 WBC Hgb Plt Count Sodium 142 Potassium 4.1 BUN 28 H Creatinine 0.9 Creatine Kinase 66 Troponin I 0.41 H 0.42 H Stool Occult Blood 12/18/18 06:00 WBC Hgb Plt Count Sodium Potassium BUN Creatinine Creatine Kinase 58 Troponin I 0.33 H Stool Occult Blood - ....Imaging EKG: Image Reviewed Problem List - Problems (1) Elevated troponin Code(s): R74.8 - ABNORMAL LEVELS OF OTHER SERUM ENZYMES (2) PAF (paroxysmal atrial fibrillation) Code(s): I48.0 - PAROXYSMAL ATRIAL FIBRILLATION (3) CHF (congestive heart failure) Code(s): I50.9 - HEART FAILURE, UNSPECIFIED Qualifiers: Heart failure chronicity: unspecified (4) Anemia Code(s): D64.9 - ANEMIA, UNSPECIFIED Qualifiers: Anemia type: unspecified type Qualified Code(s): D64.9 - Anemia, unspecified (5) Multiple myeloma Code(s): C90.00 - MULTIPLE MYELOMA NOT HAVING ACHIEVED REMISSION Qualifiers: Multiple myeloma remission status: not in remission Qualified Code(s): C90.00 - Multiple myeloma not having achieved remission (6) Diarrhea Code(s): R19.7 - DIARRHEA, UNSPECIFIED Qualifiers: Diarrhea type: unspecified type Qualified Code(s): R19.7 - Diarrhea, unspecified (7) Rectal bleed Code(s): K62.5 - HEMORRHAGE OF ANUS AND RECTUM Assessment/Plan IMP: 1. Elevated TnI likely due to CHF and marked anemia, demand ischemia 2. PAF 3. Diarrhea, possibly infectious 4. Rectal bleeding, acute blood loss anemia REC: 1. Telemetry has not shown recurrent AF. Remains in NSR 2. Diurese as BP allows. Cont IV Lasix. 3. Echo showed mildly reduced EF with wall motion abnormalities suggestive of underlying CAD 4. Transfuse to Hb > 8 and follow serial H/H while monitoring for further bleeding. S 5. Elevated TnI, ST changes likely secondary to demand ischemia in setting anemia, CHF. -Transfuse Hb > 8 -Diurese - Cardizem Q6 H (avoiding B- blockers due to asthma/COPD) -ASA therapy for now (may need full AC with UFH gtts pending clinical course, TnI trend and if recurrent AF noted) -Serial cardiac enzymes/ECGs/telemtry
[2018-12-18] MEDS ORDERED: PT OWN MED DRAWER 7, Y5N ONE ×2 (09:16→16:34)
[2018-12-18] MEDS: PANTOPRAZOLE 40 MG TABLET (FP) PO SCH ×2 (09:20→22:34)
[2018-12-18] MEDS: ASPIRIN 81 MG CHEWABLE TABLETS PO SCH (09:20)
[2018-12-18] MEDS: ALLOPURINOL 300 MG TABLET (FP) PO SCH (09:21)
--- NOTE | 2018-12-18 09:59 | PN ---
Progress Note (short form) - Note Progress Note: ID consult dictated imp/reccd 73 yo female with multiple myeloma and amyloid, admitted with rectal bleeding she gives history of one month of diarrhea, ?bloody- was using a roll of toilet paper daily- unable to five further details no abdominal pain no travel, no pets no fevers no recent antibiotics admitted for rectal bleeding and transferred to ICU for +troponins currently no blood in stools given history of one month of diarrhea prior to the rectal bleeding would send stool studies for wbc, culture, cdiff and ova and parasites management of gi bleed per GI cardiology f/u multiple myeloma- it appears she was on mepron for PCP prophylaxis per oncology - to objections to resuming this Problem List - Problems (1) Rectal bleed Code(s): K62.5 - HEMORRHAGE OF ANUS AND RECTUM (2) Diarrhea Code(s): R19.7 - DIARRHEA, UNSPECIFIED Qualifiers: Diarrhea type: unspecified type Qualified Code(s): R19.7 - Diarrhea, unspecified (3) Multiple myeloma Code(s): C90.00 - MULTIPLE MYELOMA NOT HAVING ACHIEVED REMISSION Qualifiers: Multiple myeloma remission status: not in remission Qualified Code(s): C90.00 - Multiple myeloma not having achieved remission (4) Elevated troponin Code(s): R74.8 - ABNORMAL LEVELS OF OTHER SERUM ENZYMES
--- NOTE | 2018-12-18 10:41 | CONS ---
DATE OF CONSULTATION: DATE OF DICTATION: 12/18/2018 This is a 73-year-old woman with multiple myeloma who is admitted to the hospital with rectal bleeding. On the she was found to have EKG changes and positive troponins and transferred to the ICU. She is currently awake and alert, and nurse reports she has had no further blood in her stools. She gives a history of having diarrhea for the last 1 month. It is unclear whether there has been blood. She reports she has had intermittent blood in her stools for the whole month. It is unclear how much diarrhea she has, though she reports she has been using a roll of toilet paper every day. She has no associated abdominal pain. She has no fever. There is no history of any travel. PAST MEDICAL HISTORY: Notable for multiple myeloma. There is a question of whether she has amyloid. She has a history of hypertension, hyperlipidemia, and hypothyroidism. PAST SURGICAL HISTORY: Notable for hysterectomy and tubal ligation. She has a history of prior carpal tunnel surgery as well bilateral, and she has had hiatal hernia surgery. ALLERGIES: PENICILLIN. She has tolerated cephalosporins in the past. HOSPITAL COURSE: She was admitted to the floor, transferred to the ICU, and yesterday a triple-lumen catheter was placed, and she is status post transfusion. SOCIAL HISTORY: She lives at home in the community. Former smoker. She has received influenza and pneumococcal vaccines. No pets or travel. MEDICATIONS: Her current medications at home include MiraLax, Protonix, Synthroid, gabapentin, Cardizem, atovaquone, atorvastatin, and allopurinol. REVIEW OF SYSTEMS: As per HPI. PHYSICAL EXAMINATION: Vital Signs: She is afebrile. Temperature is 98.6, pulse of 89, blood pressure 99/63, respiratory rate 17. She is saturating 98% on 2 L. HEENT: She is normocephalic. Her eyes are anicteric. Neck: Supple. Lungs: Clear to auscultation. Heart: Regular rate and rhythm. Abdomen: Soft, nontender. Extremities: Without edema. SUMMARY: This is an elderly woman admitted with rectal bleeding, gives a history of chronic diarrhea. To me she denies any history of recent antibiotics, though looking through the computer, in April she received cefazolin, and in November she got a dose of cefepime as well as vancomycin and Levaquin in October, so she is at risk for C. difficile. I would suggest that we send stool studies for white cells, culture, C. difficile, and ova and parasites. Management of GI bleed per GI, and management of her positive troponins per Surgery. With regards to her multiple myeloma, it appears she was on Mepron for PCP prophylaxis. No objections to resuming this. Further recommendations to follow. KEYONA ANAYA M.D. [id number]
[2018-12-18 10:51] LABS: HEMATOCRIT 27.3 % (32.4-45.2); HEMOGLOBIN 9.3 GM/dL (10.7-15.3); MCH 31.2 pg (25.7-33.7); MEAN CELL VOLUME 91.9 fl (80-96); MEAN PLT VOLUME 10.1 fl (7.5-11.1); PLATELET COUNT 143 K/MM3 (134-434); RBC 2.97 M/mm3 (3.60-5.2); RDW 19.4 % (11.6-15.6); WHITE BLOOD COUNT 3.7 K/mm3 (4.0-10.0)
--- NOTE | 2018-12-18 11:14 | PN ---
Physical Exam: SUBJECTIVE: Patient seen and examined at bedside. No OVN events. reports mild BRBPR today. Advanced to CLD last night per GI. Denies chest pain, SOB, palpitations, abdominal pain. OBJECTIVE: Vital Signs Period Temp Pulse Resp BP Sys/Moss Pulse Ox Last 24 Hr 98.2 F-98.6 F 89-98 17-20 90-106/48-65 95-98 GENERAL: The patient is awake, alert, and fully oriented, in no acute distress. HEAD: Normal with no signs of trauma. EYES: PERRL, extraocular movements intact, sclera anicteric, conjunctiva clear. No ptosis. ENT: Ears normal, nares patent, oropharynx clear without exudates, moist mucous membranes. NECK: Trachea midline, full range of motion, supple. LUNGS: Breath sounds equal, clear to auscultation bilaterally, no wheezes, no crackles, no accessory muscle use. HEART: Regular rate and rhythm, S1, S2 without murmur, rub or gallop. ABDOMEN: Soft, nontender, nondistended, normoactive bowel sounds, no guarding, no rebound, no hepatosplenomegaly, no masses. EXTREMITIES: 2+ pulses, warm, well-perfused, no edema. NEUROLOGICAL: Cranial nerves II through XII grossly intact. Normal speech, gait not observed. PSYCH: Normal mood, normal affect. SKIN: Warm, dry, normal turgor, no rashes or lesions noted Laboratory Results - last 24 hr 12/17/18 12/17/18 12/17/18 06:00 06:00 06:00 WBC RBC Hgb Hct MCV MCH MCHC RDW Plt Count MPV Sodium Potassium Chloride Carbon Dioxide Anion Gap BUN Creatinine Creat Clearance w eGFR Random Glucose Calcium Phosphorus Magnesium Total Bilirubin AST ALT Alkaline Phosphatase Creatine Kinase Troponin I B-Natriuretic Peptide 94254.2 H Total Protein Albumin Urine Color Urine Appearance Urine pH Ur Specific [place] Urine Protein Urine Glucose (UA) Urine Ketones Urine Blood Urine Nitrite Urine Bilirubin Urine Urobilinogen Ur Leukocyte Esterase Urine WBC (Auto) Urine RBC (Auto) Ur Epithelial Cells Hyaline Casts Granular Casts Urine Mucus U Random Total Protein Urine Creatinine Protein/Creatinin Ratio IgG 70 L 69 L IgA 1653 H IgM 10 L Blood Type Antibody Screen 12/17/18 12/17/18 12/17/18 06:00 09:55 14:07 WBC RBC Hgb Hct MCV MCH MCHC RDW Plt Count MPV Sodium Potassium Chloride Carbon Dioxide Anion Gap BUN Creatinine Creat Clearance w eGFR Random Glucose Calcium Phosphorus Magnesium Total Bilirubin AST ALT Alkaline Phosphatase Creatine Kinase 64 65 Troponin I 0.56 H 0.49 H B-Natriuretic Peptide Total Protein Albumin Urine Color Urine Appearance Urine pH Ur Specific [place] Urine Protein Urine Glucose (UA) Urine Ketones Urine Blood Urine Nitrite Urine Bilirubin Urine Urobilinogen Ur Leukocyte Esterase Urine WBC (Auto) Urine RBC (Auto) Ur Epithelial Cells Hyaline Casts Granular Casts Urine Mucus U Random Total Protein Urine Creatinine Protein/Creatinin Ratio IgG IgA IgM Blood Type B POSITIVE Antibody Screen Negative 12/17/18 12/17/18 12/17/18 14:07 17:45 17:45 WBC 4.1 RBC 3.08 L Hgb 9.3 L Hct 27.9 L D MCV 90.5 MCH 30.3 MCHC 33.4 RDW 19.2 H Plt Count 136 MPV 9.6 Sodium Potassium Chloride Carbon Dioxide Anion Gap BUN Creatinine Creat Clearance w eGFR Random Glucose Calcium Phosphorus Magnesium Total Bilirubin AST ALT Alkaline Phosphatase Creatine Kinase Troponin I B-Natriuretic Peptide Total Protein Albumin Urine Color Sheila Urine Appearance Slcloudy Urine pH 5.0 Ur Specific [place] 1.023 Urine Protein 3+ H Urine Glucose (UA) Negative Urine Ketones Negative Urine Blood Negative Urine Nitrite Negative Urine Bilirubin Negative Urine Urobilinogen 2.0 H Ur Leukocyte Esterase Negative Urine WBC (Auto) 5 Urine RBC (Auto) 1 Ur Epithelial Cells Rare Hyaline Casts 3 Granular Casts 26 Urine Mucus Rare U Random Total Protein 383.8 H Urine Creatinine 195.0 Protein/Creatinin Ratio 1.960 IgG IgA IgM Blood Type Antibody Screen 12/17/18 12/17/18 12/18/18 20:45 20:45 06:00 WBC RBC Hgb Hct MCV MCH MCHC RDW Plt Count MPV Sodium 142 Potassium 4.1 Chloride 112 H Carbon Dioxide 24 Anion Gap 7 L BUN 28 H Creatinine 0.9 Creat Clearance w eGFR > 60 Random Glucose 89 Calcium 7.7 L Phosphorus 2.5 Magnesium 2.2 Total Bilirubin 0.6 AST 18 ALT 20 Alkaline Phosphatase 59 Creatine Kinase 66 Troponin I 0.41 H 0.42 H B-Natriuretic Peptide Total Protein 6.2 L Albumin 1.2 L Urine Color Urine Appearance Urine pH Ur Specific [place] Urine Protein Urine Glucose (UA) Urine Ketones Urine Blood Urine Nitrite Urine Bilirubin Urine Urobilinogen Ur Leukocyte Esterase Urine WBC (Auto) Urine RBC (Auto) Ur Epithelial Cells Hyaline Casts Granular Casts Urine Mucus U Random Total Protein Urine Creatinine Protein/Creatinin Ratio IgG IgA IgM Blood Type Antibody Screen 12/18/18 12/18/18 06:00 08:22 WBC 3.7 L RBC 2.97 L Hgb 9.3 L Hct 27.3 L MCV 91.9 MCH 31.2 MCHC 34.0 RDW 19.4 H Plt Count 143 MPV 10.1 Sodium Potassium Chloride Carbon Dioxide Anion Gap BUN Creatinine Creat Clearance w eGFR Random Glucose Calcium Phosphorus Magnesium Total Bilirubin AST ALT Alkaline Phosphatase Creatine Kinase 58 Troponin I 0.33 H B-Natriuretic Peptide Total Protein Albumin Urine Color Urine Appearance Urine pH Ur Specific [place] Urine Protein Urine Glucose (UA) Urine Ketones Urine Blood Urine Nitrite Urine Bilirubin Urine Urobilinogen Ur Leukocyte Esterase Urine WBC (Auto) Urine RBC (Auto) Ur Epithelial Cells Hyaline Casts Granular Casts Urine Mucus U Random Total Protein Urine Creatinine Protein/Creatinin Ratio IgG IgA IgM Blood Type Antibody Screen Active Medications Generic Name Dose Route Start Last Admin Trade Name Freq PRN Reason Stop Dose Admin Allopurinol 300 mg 12/17/18 10:00 12/18/18 09:21 Zyloprim - PO 300 mg DAILY [facility] Administration Aspirin 81 mg 12/18/18 10:00 12/18/18 09:20 Asa - PO 81 mg DAILY [facility] Administration Atorvastatin Calcium 40 mg 12/17/18 22:00 12/17/18 21:21 Lipitor - PO 40 mg HS [facility] Administration Diltiazem HCl 30 mg 12/17/18 12:00 12/18/18 05:47 Cardizem - PO Not Given Q6HPO [facility] Furosemide 20 mg 12/17/18 14:00 12/18/18 05:47 Lasix Injection - IVPB 20 mg BID@0600,1400 [facility] Administration Levothyroxine Sodium 50 mcg 12/17/18 07:00 12/18/18 06:29 Synthroid - PO 50 mcg DAILY@0700 [facility] Administration Pantoprazole Sodium 40 mg 12/17/18 22:00 12/18/18 09:20 Protonix - PO 40 mg BID [facility] Administration ASSESSMENT/PLAN: Patient is a 73 year old female with history of multiple myeloma, amyloidosis, chronic anemia, hypertension, hyperlipidemia, hypothyroidism, gastroesophageal reflux admitted to ICU due to EKG changes, and tenouous blood pressures in setting of GI bleed. #Neurological -Patient is currently awake, alert, fully oriented. -Monitor for changes in mental status #Cardiovascular -EKG shows normal sinus rhythm at 96BPM with new lateral T wave inversions. Will likely need to be transferred for cath per cardiology, but need to resolve acute GI symptoms- recommends if GI cannot cath at this hospital, for patient to transfer to tertiary care where colo can be done with cardiac backup. If it can be done at this hospital, then colonoscopy should be performed first to determine the source of the bleeding and subsequently transfer patient for catheterization. -Troponin stabilized and peaked -ECHO shows mild hypokinesis within anterior and septal wall. EF 45- 50%. Borderline dilated left atrium. -Cardiology consult (Dr. Ordonez) appreciated. -Cardizem 30mg PO Q6H per cardiology -Telemetry monitoring -Blood pressure stable, central line in place, monitor to a MAP goal of >65, if between 60-65, monitor for new cardiac symptoms -diuresis Coronary artery disease -Aspirin 81mg PO daily -Lipitor 40mg PO daily #Pulmonary -Patient currently saturating 95% on 2L nasal canula -Maintain oxygen saturation greater than 90% #Gastrointestinal -mild BRBPR today, will need to discuss identifying source of bleed by colonoscopy with GI - if colonoscopy should need cardiac backup, would benefit from transfer to tertiary center where colonoscopy can be performed with label tacker on standby. -GI consult (Dr. Perkins) appreciated -Protonix 40mg PO BID #Hematologic Acute blood loss anemia -Patient is s/p 1 unit PRBC 12/17 -Hb 9.3 remained stable -continue to trend CBC -Monitor for signs of active bleeding Multiple myeloma- -Patient followed by Dr. Stuart as outpatient. -Velcade, Cytoxan, Dexamethasone per hematology -Hematology, oncology consult (Dr. Stuart) #Renal -Chronic kidney disease -Follow UA -Lasix 20mg IV BID -Nephrology consult (Dr. Hameed) #Endocrine Hypothyroidism -Synthroid 50mcg PO daily #Infectious disease -ID consult (Dr. Johnson) for prophylaxis recommendations. -Stool studies #FEN -Patient is s/p 1 unit PRBC. No IV fluids indicated. -Within normal limits. Follow CMP, replete as necessary. -advanced to low sodium diet today as per GI Prophylaxis -SCDs bilateral lower extremities #Disposition -can transfer to telemetry floor given patient is hemodynamically stable, keep line in place as it was just put in in the event that patient should require central access in the future. Visit type - Emergency Visit Emergency Visit: No - New Patient This patient is new to me today: No - Critical Care Critical Care patient: Yes Total Critical Care Time (in minutes): 35 Critical Care Statement: The care of this patient involved high complexity decision making to prevent further life threatening deterioration of the patient 's condition and/or to evaluate & treat vital organ system(s) failure or risk of failure.
--- NOTE | 2018-12-18 11:16 | PN ---
Teaching Attending Note Name of Resident: Aiden Ontiveros ATTENDING PHYSICIAN STATEMENT I saw and evaluated the patient. I reviewed the resident's note and discussed the case with the resident. I agree with the resident's findings and plan as documented. SUBJECTIVE: Pt seen and examined in the ICU. Small bowel movement with dark blood this AM. H /H has been stable. Denies shortness of breath or chest pain. OBJECTIVE: Vital Signs Period Temp Pulse Resp BP Sys/Moss Pulse Ox Last 24 Hr 98.2 F-98.6 F 89-98 17-20 90-106/48-65 95-98 Intake & Output 12/15/18 12/16/18 12/17/18 12/18/18 23:59 23:59 23:59 23:59 Intake Total 150 100 Balance 150 100 Weight 69.173 kg 68.946 kg Gen: NAD at rest Heart: RRR Lung: bibasilar rales Abd: soft, nontender Ext: no edema CBC, BMP 12/18/18 08:22 12/18/18 06:00 Active Medications Allopurinol (Zyloprim -) 300 mg PO DAILY [facility] Last Admin: 12/18/18 09:21 Dose: 300 mg Aspirin (Asa -) 81 mg PO DAILY [facility] Last Admin: 12/18/18 09:20 Dose: 81 mg Atorvastatin Calcium (Lipitor -) 40 mg PO HS [facility] Last Admin: 12/17/18 21:21 Dose: 40 mg Diltiazem HCl (Cardizem -) 30 mg PO Q6HPO [facility] Last Admin: 12/18/18 05:47 Dose: Not Given Furosemide (Lasix Injection -) 20 mg IVPB BID@0600,1400 [facility] Last Admin: 12/18/18 05:47 Dose: 20 mg Levothyroxine Sodium (Synthroid -) 50 mcg PO DAILY@0700 [facility] Last Admin: 12/18/18 06:29 Dose: 50 mcg Pantoprazole Sodium (Protonix -) 40 mg PO BID [facility] Last Admin: 12/18/18 09:20 Dose: 40 mg ASSESSMENT AND PLAN: Acute GI bleed Acute Blood Loss Anemia Acute NSTEMI Multiple myeloma Amyloidosis HTN Hyperlipidemia Hypothyroidism CKD - monitor H/H - transfuse as needed - lasix as tolerated - monitor urine output, creatinine - PO per GI - will need colonoscopy and cardiac catheterization - consider transfer to [facility] for further work up - can monitor on telemetry
--- NOTE | 2018-12-18 12:51 | EKG ---
Test Reason : Blood Pressure : / mmHG Vent. Rate : 098 BPM Atrial Rate : 098 BPM P-R Int : 148 ms QRS Dur : 104 ms QT Int : 342 ms P-R-T Axes : 044 -18 188 degrees QTc Int : 436 ms NORMAL SINUS RHYTHM ABNORMAL ECG WHEN COMPARED WITH ECG OF 17-DEC-2018 09:59, ST NOW DEPRESSED IN ANTERIOR LEADS Confirmed by ALVAREZ BOWLES MD ([id number]) on 12/18/2018 12:51:23 PM Referred By: Hilary HOSKINS Confirmed By:ALVAREZ BOWLES MD
--- NOTE | 2018-12-18 13:34 | PN ---
Progress Note, Physician History of Present Illness: Pt seen and examined at bedside. She is out of bed to chair. She is tolerating diet. She says that she feels better today. - Current Medication List Current Medications: Active Medications Allopurinol (Zyloprim -) 300 mg PO DAILY [facility] Last Admin: 12/18/18 09:21 Dose: 300 mg Aspirin (Asa -) 81 mg PO DAILY [facility] Last Admin: 12/18/18 09:20 Dose: 81 mg Atorvastatin Calcium (Lipitor -) 40 mg PO HS [facility] Last Admin: 12/17/18 21:21 Dose: 40 mg Diltiazem HCl (Cardizem -) 30 mg PO Q6HPO [facility] Last Admin: 12/18/18 05:47 Dose: Not Given Furosemide (Lasix Injection -) 20 mg IVPB BID@0600,1400 [facility] Last Admin: 12/18/18 05:47 Dose: 20 mg Levothyroxine Sodium (Synthroid -) 50 mcg PO DAILY@0700 [facility] Last Admin: 12/18/18 06:29 Dose: 50 mcg Pantoprazole Sodium (Protonix -) 40 mg PO BID [facility] Last Admin: 12/18/18 09:20 Dose: 40 mg - Objective Vital Signs: Vital Signs Temperature 98.4 F 12/18/18 09:59 Pulse Rate 96 H 12/18/18 09:59 Respiratory Rate 17 12/18/18 09:59 Blood Pressure 101/65 12/18/18 09:59 O2 Sat by Pulse Oximetry (%) 98 12/18/18 09:00 Constitutional: Yes: Calm Eyes: Yes: Conjunctiva Clear HENT: Yes: Atraumatic Neck: Yes: Supple Cardiovascular: Yes: S1, S2 Respiratory: Yes: On Nasal O2 Gastrointestinal: Yes: Soft Genitourinary: Yes: WNL Musculoskeletal: Yes: Muscle Weakness Edema: Yes Edema: LLE: 1+, RLE: 1+ Integumentary: Yes: WNL Neurological: Yes: Oriented Psychiatric: Yes: Oriented Labs: CBC, BMP 12/18/18 08:22 12/18/18 06:00 INR, PTT INR 1.16 (0.83-1.09) H 12/16/18 15:09 - ....Imaging Chest X-ray: Report Reviewed Problem List - Problems (1) Anemia Code(s): D64.9 - ANEMIA, UNSPECIFIED Qualifiers: Anemia type: unspecified type Qualified Code(s): D64.9 - Anemia, unspecified (2) CHF (congestive heart failure) Code(s): I50.9 - HEART FAILURE, UNSPECIFIED Qualifiers: Heart failure chronicity: unspecified (3) Rectal bleed Code(s): K62.5 - HEMORRHAGE OF ANUS AND RECTUM Assessment/Plan Current Medications Generic Name Dose Route Start Last Admin Trade Name Edgar PRN Reason Stop Dose Admin Allopurinol 300 mg 12/17/18 10:00 12/18/18 09:21 Zyloprim - PO 300 mg DAILY [facility] Administration Aspirin 81 mg 12/18/18 10:00 12/18/18 09:20 Asa - PO 81 mg DAILY [facility] Administration Atorvastatin Calcium 40 mg 12/17/18 22:00 12/17/18 21:21 Lipitor - PO 40 mg HS [facility] Administration Diltiazem HCl 30 mg 12/17/18 12:00 12/18/18 05:47 Cardizem - PO Not Given Q6HPO [facility] Furosemide 20 mg 12/17/18 14:00 12/18/18 05:47 Lasix Injection - IVPB 20 mg BID@0600,1400 [facility] Administration Levothyroxine Sodium 50 mcg 12/17/18 07:00 12/18/18 06:29 Synthroid - PO 50 mcg DAILY@0700 [facility] Administration Pantoprazole Sodium 40 mg 12/17/18 22:00 12/18/18 09:20 Protonix - PO 40 mg BID [facility] Administration Laboratory Tests 12/17/18 12/17/18 12/18/18 17:45 17:45 06:00 Hgb Creatinine 0.9 Albumin 1.2 L Urine Protein 3+ H Protein/Creatinin Ratio 1.960 12/18/18 08:22 Hgb 9.3 L Creatinine Albumin Urine Protein Protein/Creatinin Ratio Impression 1. proteinuria 2. multiple myeloma 3. amyloid 4. blood per rectum 5. htn 6. HLD 7. hypothyroidism 8. anemia 9. CKD Plan - renal function stable - cont lasix - volume status is improving - urine protein actually improved - monitor hg
[2018-12-18] MEDS ORDERED: NOREPINEPHRINE BITARTRATE 4,000 MCG in DEXTROSE 5%-WATER - 496 ML IV SCH (14:00)
[2018-12-18] MEDS ORDERED: FUROSEMIDE 40 MG/4 ML INJECTABLE VIAL IVPUSH SCH (14:00)
--- NOTE | 2018-12-18 16:35 | PN ---
Progress Note (short form) - Note Progress Note: Patient seen in follow up. No new complaints. No significant events overnight. Denies rectal bleeding at this time. Inpatient Meds reviewed. Current Medications Generic Name Dose Route Start Last Admin Trade Name Munirq PRN Reason Stop Dose Admin Albumin Human 12.5 gm 12/18/18 15:30 Albumin Human 25% IVPB 12/18/18 17:01 Q30M [facility] Allopurinol 300 mg 12/17/18 10:00 12/18/18 09:21 Zyloprim - PO 300 mg DAILY [facility] Administration Aspirin 81 mg 12/18/18 10:00 12/18/18 09:20 Asa - PO 81 mg DAILY [facility] Administration Atorvastatin Calcium 40 mg 12/17/18 22:00 12/17/18 21:21 Lipitor - PO 40 mg HS [facility] Administration Diltiazem HCl 30 mg 12/17/18 12:00 12/18/18 13:53 Cardizem - PO Not Given Q6HPO [facility] Furosemide 20 mg 12/18/18 14:00 12/18/18 14:30 Lasix Injection - IVPB Not Given TID [facility] Levothyroxine Sodium 50 mcg 12/17/18 07:00 12/18/18 06:29 Synthroid - PO 50 mcg DAILY@0700 [facility] Administration Pantoprazole Sodium 40 mg 12/17/18 22:00 12/18/18 09:20 Protonix - PO 40 mg BID [facility] Administration On Examination: Last Vital Signs Temp Pulse Resp BP Pulse Ox 98.6 F 87 18 90/60 98 12/18/18 14:00 12/18/18 16:00 12/18/18 16:00 12/18/18 16:00 12/18/18 09:00 General: In no acute distress, lying comfortably in bed. Extremities: No pallor or icterus. No pedal edema. No palpable lymphadenopathy. CVS: S1, S2, regular, no gallop or murmur. Chest: good air entry bilaterally, clear Abdomen: Non-distended, non-tender, no palpable organomegaly. Neuro: Alert, oriented, non-focal. Labs: CBC, BMP 12/18/18 08:22 12/18/18 06:00 Assessment. IgA myeloma, with anemia and proteinuria (normal creatinine). Currently receiving Velcade/Cytoxan/Dex - presented with rectal bleed, and taken to ICU due to elevated troponin. ACS ruled out - likely demand ischemia - cardiology following. Counts satisfactory. GI evaluation regarding rectal bleed noted. ? consideration of GI amyloidosis .
[2018-12-18] MEDS: ALBUMIN HUMAN 25% 12.5 GM/50 ML VIAL IVPB SCH ×4 (16:43→22:36)
--- NOTE | 2018-12-18 17:13 | PN ---
GI Progress Note Subjective: no rectal bleeding reported by patient and by her nurse. Tolerated clear liquids - Objective Vital Signs: Vital Signs Temperature 98.6 F 12/18/18 14:00 Pulse Rate 87 12/18/18 16:00 Respiratory Rate 18 12/18/18 16:00 Blood Pressure 90/60 12/18/18 16:00 O2 Sat by Pulse Oximetry (%) 98 12/18/18 09:00 Constitutional: Well Nourished Eyes: Yes: Conjunctiva Clear HENT: Yes: Atraumatic Neck: Yes: Supple Cardiovascular: Yes: Regular Rate and Rhythm Respiratory: Yes: CTA Bilaterally ...Palpate: Yes: Soft. No: Firm/Rigid, Guarding, Hepatomegaly, Mass, Pulsatile Mass, Splenomegaly, Tenderness Labs: CBC, BMP 12/18/18 08:22 12/18/18 06:00 INR, PTT INR 1.16 (0.83-1.09) H 12/16/18 15:09 Problem List - Problems (1) Rectal bleed Assessment/Plan: --resolved R> advance diet patient high risk for colonoscopy Code(s): K62.5 - HEMORRHAGE OF ANUS AND RECTUM
[2018-12-18] MEDS: ATORVASTATIN CA 40 MG TABLET (FP) PO SCH (22:34)
--- NOTE | 2018-12-18 23:01 | PN ---
Progress Note, Physician - Current Medication List Current Medications: Active Medications Allopurinol (Zyloprim -) 300 mg PO DAILY [facility] Last Admin: 12/18/18 09:21 Dose: 300 mg Aspirin (Asa -) 81 mg PO DAILY [facility] Last Admin: 12/18/18 09:20 Dose: 81 mg Atorvastatin Calcium (Lipitor -) 40 mg PO HS [facility] Last Admin: 12/18/18 22:34 Dose: 40 mg Diltiazem HCl (Cardizem -) 30 mg PO Q6HPO [facility] Last Admin: 12/18/18 19:02 Dose: 30 mg Furosemide (Lasix Injection -) 20 mg IVPB TID [facility] Last Admin: 12/18/18 22:34 Dose: 20 mg Levothyroxine Sodium (Synthroid -) 50 mcg PO DAILY@0700 [facility] Last Admin: 12/18/18 06:29 Dose: 50 mcg Pantoprazole Sodium (Protonix -) 40 mg PO BID [facility] Last Admin: 12/18/18 22:34 Dose: 40 mg - Objective Vital Signs: Vital Signs Temperature 98.6 F 12/18/18 14:00 Pulse Rate 104 H 12/18/18 18:57 Respiratory Rate 20 12/18/18 18:57 Blood Pressure 129/73 12/18/18 18:57 O2 Sat by Pulse Oximetry (%) 98 12/18/18 09:00 Labs: CBC, BMP 12/18/18 08:22 12/18/18 06:00 INR, PTT INR 1.16 (0.83-1.09) H 12/16/18 15:09
[2018-12-19] MEDS: FUROSEMIDE 40 MG/4 ML INJECTABLE VIAL IVPB SCH ×2 (06:34→15:39)
[2018-12-19] MEDS: dilTIAZem HCL 30 MG TABLET (FP) PO SCH ×2 (06:35→13:32)
[2018-12-19] MEDS: LEVOTHYROXINE NA 50 MCG TABLET (FP) PO SCH (06:48)
[2018-12-19 07:22] LABS: HEMATOCRIT 27.7 % (32.4-45.2); HEMOGLOBIN 9.5 GM/dL (10.7-15.3); MCH 31.3 pg (25.7-33.7); MCHC 34.4 g/dl (32.0-36.0); MEAN PLT VOLUME 10.2 fl (7.5-11.1); PLATELET COUNT 124 K/MM3 (134-434); RBC 3.04 M/mm3 (3.60-5.2); RDW 19.4 % (11.6-15.6); WHITE BLOOD COUNT 5.1 K/mm3 (4.0-10.0)
[2018-12-19] MEDS: ASPIRIN 81 MG CHEWABLE TABLETS PO SCH (09:30)
[2018-12-19] MEDS: ALLOPURINOL 300 MG TABLET (FP) PO SCH (09:30)
[2018-12-19] MEDS: PANTOPRAZOLE 40 MG TABLET (FP) PO SCH (09:30)
--- NOTE | 2018-12-19 10:35 | PN ---
Progress Note, Physician Chief Complaint: No chest pain TELE: NSR - Current Medication List Current Medications: Active Medications Allopurinol (Zyloprim -) 300 mg PO DAILY [facility] Last Admin: 12/19/18 09:30 Dose: 300 mg Aspirin (Asa -) 81 mg PO DAILY [facility] Last Admin: 12/19/18 09:30 Dose: 81 mg Atorvastatin Calcium (Lipitor -) 40 mg PO HS [facility] Last Admin: 12/18/18 22:34 Dose: 40 mg Diltiazem HCl (Cardizem -) 30 mg PO Q6HPO [facility] Last Admin: 12/19/18 06:35 Dose: 30 mg Furosemide (Lasix Injection -) 20 mg IVPB TID [facility] Last Admin: 12/19/18 06:34 Dose: 20 mg Levothyroxine Sodium (Synthroid -) 50 mcg PO DAILY@0700 [facility] Last Admin: 12/19/18 06:48 Dose: 50 mcg Pantoprazole Sodium (Protonix -) 40 mg PO BID [facility] Last Admin: 12/19/18 09:30 Dose: 40 mg - Objective Vital Signs: Vital Signs Temperature 99.3 F 12/19/18 06:00 Pulse Rate 91 H 12/19/18 06:00 Respiratory Rate 18 12/19/18 06:00 Blood Pressure 112/65 12/19/18 06:00 O2 Sat by Pulse Oximetry (%) 98 12/18/18 21:00 Constitutional: Yes: No Distress Cardiovascular: Yes: Regular Rate and Rhythm Respiratory: Yes: Other (significantly improved congestion, rales diminished, decreased breath sounds bases) Gastrointestinal: Yes: Soft Edema: No Neurological: Yes: Alert, Oriented ...Motor Strength: WNL Labs: CBC, BMP 12/19/18 05:15 12/18/18 06:00 INR, PTT INR 1.16 (0.83-1.09) H 12/16/18 15:09 - ....Imaging EKG: Image Reviewed Problem List - Problems (1) Elevated troponin Code(s): R74.8 - ABNORMAL LEVELS OF OTHER SERUM ENZYMES (2) PAF (paroxysmal atrial fibrillation) Code(s): I48.0 - PAROXYSMAL ATRIAL FIBRILLATION (3) CHF (congestive heart failure) Code(s): I50.9 - HEART FAILURE, UNSPECIFIED Qualifiers: Heart failure chronicity: unspecified (4) Anemia Code(s): D64.9 - ANEMIA, UNSPECIFIED Qualifiers: Anemia type: unspecified type Qualified Code(s): D64.9 - Anemia, unspecified (5) Multiple myeloma Code(s): C90.00 - MULTIPLE MYELOMA NOT HAVING ACHIEVED REMISSION Qualifiers: Multiple myeloma remission status: not in remission Qualified Code(s): C90.00 - Multiple myeloma not having achieved remission (6) Diarrhea Code(s): R19.7 - DIARRHEA, UNSPECIFIED Qualifiers: Diarrhea type: unspecified type Qualified Code(s): R19.7 - Diarrhea, unspecified (7) Rectal bleed Code(s): K62.5 - HEMORRHAGE OF ANUS AND RECTUM Assessment/Plan IMP: 1. Elevated TnI likely due to CHF and marked anemia, demand ischemia 2. PAF 3. Diarrhea, possibly infectious 4. Rectal bleeding, acute blood loss anemia REC: 1. Telemetry has not shown recurrent AF. Remains in NSR 2. Diurese as BP allows. Cont IV Lasix. Volume status improving. 3. Echo showed mildly reduced EF with wall motion abnormalities suggestive of underlying CAD 4. Transfuse to Hb > 8 and follow serial H/H while monitoring for further bleeding. 5. Elevated TnI, ST changes likely secondary to demand ischemia in setting anemia, CHF. -Maintain Hb > 8 -Diurese - Cardizem Q6 H (avoiding B- blockers due to asthma/COPD) -ASA therapy for now (may need full AC with UFH gtts pending clinical course, TnI trend and if recurrent AF noted) -Serial cardiac enzymes/ECGs/telemtry 6. DVT prophylaxis
--- NOTE | 2018-12-19 11:09 | PN ---
Progress Note (short form) - Note Progress Note: Patient seen in follow up. No new complaints. No significant events overnight. Denies rectal bleeding at this time. Transferred out of ICU Inpatient Meds reviewed. Current Medications Generic Name Dose Route Start Last Admin Trade Name Edgar PRN Reason Stop Dose Admin Allopurinol 300 mg 12/17/18 10:00 12/19/18 09:30 Zyloprim - PO 300 mg DAILY [facility] Administration Aspirin 81 mg 12/18/18 10:00 12/19/18 09:30 Asa - PO 81 mg DAILY [facility] Administration Atorvastatin Calcium 40 mg 12/17/18 22:00 12/18/18 22:34 Lipitor - PO 40 mg HS [facility] Administration Diltiazem HCl 30 mg 12/17/18 12:00 12/19/18 06:35 Cardizem - PO 30 mg Q6HPO [facility] Administration Furosemide 20 mg 12/18/18 14:00 12/19/18 06:34 Lasix Injection - IVPB 20 mg TID [facility] Administration Heparin Sodium (Porcine) 5,000 unit 12/19/18 10:45 Heparin - SQ BID [facility] Levothyroxine Sodium 50 mcg 12/17/18 07:00 12/19/18 06:48 Synthroid - PO 50 mcg DAILY@0700 [facility] Administration Pantoprazole Sodium 40 mg 12/17/18 22:00 12/19/18 09:30 Protonix - PO 40 mg BID [facility] Administration On Examination: Last Vital Signs Temp Pulse Resp BP Pulse Ox 99.3 F 91 H 18 112/65 98 12/19/18 06:00 12/19/18 06:00 12/19/18 06:00 12/19/18 06:00 12/18/18 21:00 General: In no acute distress, lying comfortably in bed. Extremities: No pallor or icterus. No pedal edema. No palpable lymphadenopathy. CVS: S1, S2, regular, no gallop or murmur. Chest: tachypneic, good air entry bilaterally, clear Abdomen: Non-distended, non-tender, no palpable organomegaly. Neuro: Alert, oriented, non-focal. Labs: CBC, BMP 12/19/18 05:15 12/18/18 06:00 Assessment. IgA myeloma, with anemia and proteinuria (normal creatinine). Currently receiving Velcade/Cytoxan/Dex - presented with rectal bleed, and taken to ICU due to elevated troponin. ACS ruled out - likely demand ischemia - cardiology following. Counts satisfactory. Significantly more tachypneic this morning than previously. Clear breath sounds. Chemistry today pending, check ABG. Will alert hospitalist. .
[2018-12-19] MEDS ORDERED: HEPARIN NA (PORCINE) 5,000 UNITS/ML 1ML VIAL SQ SCH (11:45)
[2018-12-19 14:03] VITALS: BP 106/73; PULSE 90; TEMP 100.6
--- NOTE | 2018-12-19 14:40 | PN ---
Progress Note, Physician History of Present Illness: Pt seen and examined at bedside. She is awake and alert. She does get shortness of breath with exertion. She denies chest pain. She complains of lower ext edema. - Current Medication List Current Medications: Active Medications Allopurinol (Zyloprim -) 300 mg PO DAILY [facility] Last Admin: 12/19/18 09:30 Dose: 300 mg Aspirin (Asa -) 81 mg PO DAILY [facility] Last Admin: 12/19/18 09:30 Dose: 81 mg Atorvastatin Calcium (Lipitor -) 40 mg PO HS [facility] Last Admin: 12/18/18 22:34 Dose: 40 mg Diltiazem HCl (Cardizem -) 30 mg PO Q6HPO [facility] Last Admin: 12/19/18 13:32 Dose: Not Given Furosemide (Lasix Injection -) 20 mg IVPB TID [facility] Last Admin: 12/19/18 06:34 Dose: 20 mg Heparin Sodium (Porcine) (Heparin -) 5,000 unit SQ BID [facility] Last Admin: 12/19/18 13:44 Dose: 5,000 unit Levothyroxine Sodium (Synthroid -) 50 mcg PO DAILY@0700 [facility] Last Admin: 12/19/18 06:48 Dose: 50 mcg Pantoprazole Sodium (Protonix -) 40 mg PO BID [facility] Last Admin: 12/19/18 09:30 Dose: 40 mg - Objective Vital Signs: Vital Signs Temperature 100.6 F H 12/19/18 13:30 Pulse Rate 90 12/19/18 13:30 Respiratory Rate 24 H 12/19/18 13:30 Blood Pressure 106/73 12/19/18 13:30 O2 Sat by Pulse Oximetry (%) 98 12/18/18 21:00 Constitutional: Yes: Calm Eyes: Yes: Conjunctiva Clear HENT: Yes: Atraumatic Neck: Yes: Supple Cardiovascular: Yes: S1, S2 Respiratory: Yes: On Nasal O2 Gastrointestinal: Yes: Normal Bowel Sounds, Soft Genitourinary: Yes: WNL Edema: Yes Edema: LLE: 2+, RLE: 2+ Neurological: Yes: Oriented Psychiatric: Yes: Oriented Labs: CBC, BMP 12/19/18 05:15 12/18/18 06:00 INR, PTT INR 1.16 (0.83-1.09) H 12/16/18 15:09 Problem List - Problems (1) Anemia Code(s): D64.9 - ANEMIA, UNSPECIFIED Qualifiers: Anemia type: unspecified type Qualified Code(s): D64.9 - Anemia, unspecified (2) CHF (congestive heart failure) Code(s): I50.9 - HEART FAILURE, UNSPECIFIED Qualifiers: Heart failure chronicity: unspecified (3) Rectal bleed Code(s): K62.5 - HEMORRHAGE OF ANUS AND RECTUM Assessment/Plan Current Medications Generic Name Dose Route Start Last Admin Trade Name Freq PRN Reason Stop Dose Admin Allopurinol 300 mg 12/17/18 10:00 12/19/18 09:30 Zyloprim - PO 300 mg DAILY [facility] Administration Aspirin 81 mg 12/18/18 10:00 12/19/18 09:30 Asa - PO 81 mg DAILY [facility] Administration Atorvastatin Calcium 40 mg 12/17/18 22:00 12/18/18 22:34 Lipitor - PO 40 mg HS [facility] Administration Diltiazem HCl 30 mg 12/17/18 12:00 12/19/18 13:32 Cardizem - PO Not Given Q6HPO [facility] Furosemide 20 mg 12/18/18 14:00 12/19/18 06:34 Lasix Injection - IVPB 20 mg TID [facility] Administration Heparin Sodium (Porcine) 5,000 unit 12/19/18 11:45 12/19/18 13:44 Heparin - SQ 5,000 unit BID [facility] Administration Levothyroxine Sodium 50 mcg 12/17/18 07:00 12/19/18 06:48 Synthroid - PO 50 mcg DAILY@0700 [facility] Administration Pantoprazole Sodium 40 mg 12/17/18 22:00 12/19/18 09:30 Protonix - PO 40 mg BID [facility] Administration Impression 1. proteinuria 2. multiple myeloma 3. amyloid 4. blood per rectum 5. htn 6. HLD 7. hypothyroidism 8. anemia 9. CKD Plan - cont with lasix - monitor renal function - reviewed urine studies, protein is improved - pt is being transferred to a tertiary care center - volume status is improving - urine protein actually improved - monitor hg
--- NOTE | 2018-12-19 16:45 | PN ---
Progress Note (short form) - Note Progress Note: At 3:52pm I was informed by Ruddy, Dr. Stuart that patient developed at temperature of 100.6. I did not receive notification from RN. Patient was already in transport to [facility]. I called and notified the accepting [employer] Machine Set Up Operator there, Dr. Jimmy Dunham of the fever at 3:53pm. I explained to him that she will need cultures and probably abx for PNA as she is immunosuppressed. I also passed along Ruddy's recommendation that she will need to continue Mepron and Valtrex prophylaxis. I informed him of her chemo regimen with Velcade, Cyclophoshamide and Dexamethasone. Problem List - Problems (1) Elevated troponin Code(s): R74.8 - ABNORMAL LEVELS OF OTHER SERUM ENZYMES (2) PAF (paroxysmal atrial fibrillation) Code(s): I48.0 - PAROXYSMAL ATRIAL FIBRILLATION (3) CHF (congestive heart failure) Code(s): I50.9 - HEART FAILURE, UNSPECIFIED Qualifiers: Heart failure chronicity: unspecified (4) Anemia Code(s): D64.9 - ANEMIA, UNSPECIFIED Qualifiers: Anemia type: unspecified type Qualified Code(s): D64.9 - Anemia, unspecified (5) Multiple myeloma Code(s): C90.00 - MULTIPLE MYELOMA NOT HAVING ACHIEVED REMISSION Qualifiers: Multiple myeloma remission status: not in remission Qualified Code(s): C90.00 - Multiple myeloma not having achieved remission (6) Diarrhea Code(s): R19.7 - DIARRHEA, UNSPECIFIED Qualifiers: Diarrhea type: unspecified type Qualified Code(s): R19.7 - Diarrhea, unspecified (7) Rectal bleed Code(s): K62.5 - HEMORRHAGE OF ANUS AND RECTUM
[2018-12-20] MEDS ORDERED: ATOVAQUONE 750 MG/5 ML (UNIT-DOSE PACKAGING) PO SCH (08:00)
[2018-12-20] MEDS ORDERED: valACYclovir HCL 500 MG TABLET (FP) PO SCH (10:00)
--- NOTE | 2018-12-25 22:14 | EKG ---
Test Reason : Blood Pressure : / mmHG Vent. Rate : 107 BPM Atrial Rate : 107 BPM P-R Int : 152 ms QRS Dur : 114 ms QT Int : 344 ms P-R-T Axes : 050 -18 169 degrees QTc Int : 459 ms SINUS TACHYCARDIA POSSIBLE LEFT ATRIAL ENLARGEMENT ABNORMAL ECG WHEN COMPARED WITH ECG OF 16-DEC-2018 15:48, NO SIGNIFICANT CHANGE WAS FOUND Confirmed by LEANDRO STEVENS MD ([id number]) on 12/25/2018 10:13:27 PM Referred By: Confirmed By:LEANDRO STEVENS MD
== END 2018-12-19 15:46 | disposition short-term general hospital (02) | DRG 377 ==
LOC: JER 13:59 → JERBED 16:23 → J4S 23:28 → JICU 12-17 13:16 → J4W 12-18 18:54
PROVIDERS: ADMIT Internal Medicine; ATTEND Internal Medicine
PROC: 05HM33Z Insertion of Infusion Device into Right Internal Jugular Vein, Percutaneous Approach (ICD-10-PCS; principal; 2018-12-17)
PROC: 30233N1 Transfusion of Nonautologous Red Blood Cells into Peripheral Vein, Percutaneous Approach (ICD-10-PCS; 2018-12-17)
DX: K92.2 Gastrointestinal hemorrhage, unspecified (principal); I21.4 Non-ST elevation (NSTEMI) myocardial infarction; C90.00 Multiple myeloma not having achieved remission; E85.9 Amyloidosis, unspecified; D62 Acute posthemorrhagic anemia; I24.8 Other forms of acute ischemic heart disease; I13.0 Hypertensive heart and chronic kidney disease with heart failure and stage 1 through stage 4 chronic kidney disease, or unspecified chronic kidney disease; E03.9 Hypothyroidism, unspecified; E78.5 Hyperlipidemia, unspecified; J45.909 Unspecified asthma, uncomplicated; J44.9 Chronic obstructive pulmonary disease, unspecified; F32.9 Major depressive disorder, single episode, unspecified; I48.0 Paroxysmal atrial fibrillation; R74.8 Abnormal levels of other serum enzymes; R19.7 Diarrhea, unspecified; K21.9 Gastro-esophageal reflux disease without esophagitis; I25.10 Atherosclerotic heart disease of native coronary artery without angina pectoris; N18.9 Chronic kidney disease, unspecified; Z87.891 Personal history of nicotine dependence
CPT/HCPCS: 36415; 36430; 71045-TC-FY; 80053; 81003; 81015; 82272; 82550; 82570; 82784; 83735; 83880; 84100; 84156; 84484; 85025; 85027; 85610; 85730; 86850; 86900; 86901; 86922; 87040; 87086; 93005; 93010; 93306-TC; 99285-25; J1644; P9038; P9047; P9058

== ENCOUNTER 2018-12-29 07:17 | Day surgery (SDC) | payer OTHER ==
[2018-12-29] MEDS ORDERED: DEXAMETHASONE 4 MG TABLET (FP) PO ONE (08:00)
[2018-12-29] MEDS ORDERED: ONDANSETRON INJECTION 8 MG in SODIUM CHLORIDE 50 ML IVPB ONE (08:00)
[2018-12-29] MEDS ORDERED: CYCLOPHOSPHAMIDE 50 MG CAPSULE PO ONE (08:30)
[2018-12-29] MEDS ORDERED: BORTEZOMIB (VELCADE) 2.5 MG/ML SUB-Q INJECTION SQ ONE (08:30)
[2018-12-29 10:25] LABS: BASO % 0.5 % (0-2.0); EOS % 0.1 % (0-4.5); HEMATOCRIT 27.6 % (32.4-45.2); HEMOGLOBIN 9.3 GM/dL (10.7-15.3); LYMPH % 33.3 % (8-40); MCHC 33.7 g/dl (32.0-36.0); MEAN CELL VOLUME 92.1 fl (80-96); MEAN PLT VOLUME 8.5 fl (7.5-11.1); MONO % 14.1 % (3.8-10.2); PLATELET COUNT 217 K/MM3 (134-434); RDW 19.3 % (11.6-15.6); WHITE BLOOD COUNT 4.5 K/mm3 (4.0-10.0)
[2018-12-29] MEDS ORDERED: SODIUM CHLORIDE 300 ML IV STA (10:44)
[2018-12-29 10:58] LABS: ALBUMIN 1.8 g/dl (3.4-5.0); BILIRUBIN,DIRECT 0.3 mg/dL (0.0-0.2); BILIRUBIN,TOTAL 0.8 mg/dL (0.2-1); MAGNESIUM 2.9 mg/dL (1.8-2.4); TOT PROT 7.9 g/dl (6.4-8.2); URIC ACID 3.2 mg/dL (2.6-7.2)
[2018-12-29 10:59] LABS: ALBUMIN 1.8 g/dl (3.4-5.0); ALK PHOS 59 U/L (45-117); ANION GAP 8 MMOL/L (8-16); BILIRUBIN,TOTAL 0.7 mg/dL (0.2-1); BLOOD UREA NITROGEN 17 mg/dL (7-18); CALCIUM 9.1 mg/dL (8.5-10.1); CHLORIDE 109 mmol/L (98-107); CO2 25 mmol/L (21-32); CREATININE 0.8 mg/dL (0.55-1.3); GLUCOSE,RANDOM 89 mg/dL (74-106); POTASSIUM 3.9 mmol/L (3.5-5.1); SGOT/AST 19 U/L (15-37); SGPT/ALT 21 U/L (13-61); SODIUM 142 mmol/L (136-145); TOT PROT 7.8 g/dl (6.4-8.2)
[2018-12-29 16:33] VITALS: BP 142/84; PULSE 88; TEMP 96.8
[2018-12-30 19:11] LABS: FREE KAPPA,SERUM 8.5 mg/L (3.3-19.4)
== END 2018-12-29 12:30 | disposition home or self-care (01) ==
LOC: JONCCHEMO 07:17 → J7W 11:36 → JONCCHEMO 12:30
PROVIDERS: ATTEND Internal Medicine Hematology & Oncology
PROC: 3E0337Z Introduction of Electrolytic and Water Balance Substance into Peripheral Vein, Percutaneous Approach (ICD-10-PCS; principal; 2018-12-29)
PROC: 3E033GC Introduction of Other Therapeutic Substance into Peripheral Vein, Percutaneous Approach (ICD-10-PCS; 2018-12-29)
DX: Z51.11 Encounter for antineoplastic chemotherapy (principal); C90.00 Multiple myeloma not having achieved remission
CPT/HCPCS: 36415; 80053; 80076; 83615; 83735; 83883; 84155; 84165; 84550; 85025; 96361; 96365; 96375; 96401; A6212; G0463-25; J2405; J9041

== ENCOUNTER 2018-12-30 04:54 | Inpatient (IN) | payer OTHER ==
--- NOTE | 2018-12-30 05:00 | PDOC ---
History of Present Illness - General Stated Complaint: DIFFICULTY BREATHING Time Seen by Provider: 12/30/18 04:59 Past History - Past Medical History Allergies/Adverse Reactions: Allergies Allergy/AdvReac Type Severity Reaction Status Date / Time Penicillins Allergy Severe Rash Verified 12/16/18 14:05 Home Medications: Ambulatory Orders Gabapentin 300 mg PO TID 06/14/13 Atorvastatin Ca [Lipitor] 40 mg PO HS 10/11/18 Diltiazem Cd [Cardizem Cd -] 240 mg PO DAILY 10/11/18 Winston-3/Dha/Epa/Fish Oil [Winston 3 500 Softgel] 1 each PO DAILY 10/11/18 Allopurinol [Zyloprim -] 300 mg PO DAILY #30 tablet 11/09/18 Levothyroxine [Synthroid -] 50 mcg PO DAILY@0700 #30 tablet 11/09/18 Pantoprazole Sodium [Protonix -] 40 mg PO DAILY #30 tablet.ec 11/09/18 Polyethylene Glycol 3350 [Miralax 119 gm Btl -] 17 gm PO DAILY #1 bottle Atovaquone 1,500 mg PO DAILY #300 ml 11/10/18 Anemia: Yes Asthma: Yes Cancer: Yes (myeloma) Cardiac Disorders: Yes (PALPITATION) CVA: No COPD: No CHF: No Dementia: No Diabetes: No GI Disorders: Yes (HIATAL HERNIA) Disorders: No HTN: Yes Hypercholesterolemia: Yes Liver Disease: Yes (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) Seizures: No Thyroid Disease: Yes (Hypothyroidism ) - Surgical History Abdominal Surgery: Yes Appendectomy: No Cardiac Surgery: No Cholecystectomy: No Lung Surgery: No Neurologic Surgery: No Orthopedic Surgery: Yes (carpal tunnel ) - Immunization History Immunization Up to Date: Yes - Suicide/Smoking/Psychosocial Hx Smoking History: Former smoker Have you smoked in the past 12 months: No Number of Cigarettes Smoked Daily: 0 If you are a former smoker, when did you quit?: 1987 Cigars Per Day: 0 Hx Alcohol Use: No Drug/Substance Use Hx: No Substance Use Type: None Hx Substance Use Treatment: No
[2018-12-30 05:31] LABS: VENOUS PC02 35.4 mmHg (38-52); VENOUS PH 7.42 (7.32-7.42)
[2018-12-30] MEDS ORDERED: FUROSEMIDE 40 MG/4 ML INJECTABLE VIAL IVPUSH ONE (05:33)
[2018-12-30 05:35] LABS: VENOUS PO2 19.7 mmHg (28-48)
--- NOTE | 2018-12-30 05:35 | PDOC ---
History of Present Illness - General Chief Complaint: Shortness of Breath Stated Complaint: DIFFICULTY BREATHING Time Seen by Provider: 12/30/18 04:59 History Source: Patient Exam Limitations: No Limitations - History of Present Illness Initial Comments: 12/30/18 05:34 HISTORY OF PRESENT ILLNESS: This is a 73-year-old woman past medical history of hypertension, paroxysmal A. fib, CAD with stent placed 12/23/18, hyperlipidemia, multiple myeloma, CHF who presents emergency department for evaluation of acute onset shortness of breath starting at approximately 4 AM today. Patient states she was at sleep when she suddenly became increasingly short of breath. Report mild chest pain and which she described as a tightness with shortness of breath presented. She states that tightness and pain in her chest is different from when she had her stent placed. Patient was given 1 sl nitroglycerin enroute the emergency department and placed on BiPAP. No recent travel or sick contacts. PAST MEDICAL HISTORY: see HPI SURGICAL HISTORY: Denies ALLERGIES: PCN REVIEW OF SYSTEMS General/Constitutional: Denies fever or chills. Denies weakness, weight change. HEENT: Denies change in vision. Denies ear pain or discharge. Denies sore throat. Cardiovascular: see HPI Respiratory: see HPI Gastrointestinal: Denies nausea, vomiting, diarrhea or constipation. Denies rectal bleeding. Genitourinary: Denies dysuria, frequency, or change in urination. Musculoskeletal: Denies joint or muscle swelling or pain. Denies neck or back pain. Skin and breasts: Denies rash or easy bruising. Neurologic: Denies headache, vertigo, loss of consciousness, or loss of sensation. Psychiatric: Denies depression or anxiety. Endocrine: Denies increased thirst. Denies abnormal weight change. Hematologic/Lymphatic: Denies anemia, easy bleeding, or history of blood clots. Allergic/Immunologic: Denies hives or skin allergy. Denies latex allergy. PHYSICAL EXAM General Appearance: Well-appearing, appropriately dressed. No apparent distress , no intoxication. HEENT: EOMI, PERRLA, normal ENT inspection, normal voice, TMs normal, pharynx normal. No conjunctival pallor. No photophobia, scleral icterus. Neck: Supple. Trachea midline. No tenderness, rigidity, carotid bruit, stridor , lymphadenopathy, or thyromegaly. Respiratory/Chest: No chest tenderness. (+)shortness of breath, respiratory distress and accessory muscle use. Diminished breath sounds bilaterally. Cardiovascular: Regular tachycardic rhythm. S1, S2. No JVD, murmur, bradycardia. Vascular Pulses: Dorsalis-Pedis (R): 2+, Dorsalis-Pedis (L): 2+ Gastrointestinal/Abdominal: Normal bowel sounds. Abdomen soft, non-distended. No tenderness or rebound tenderness. No organomegaly, pulsatile mass, guarding, hernia, hepatomegaly, splenomegaly. Lymphatic: No adenopathy, tenderness. Musculoskeletal/Extremities: FROM of all extremities, normal capillary refill. Pelvis Stable. No CVA tenderness. 3+ pedal edema present bilaterally. No bony tenderness, erythema or deformity. Integumentary: Appropriate color, dry, warm. No cyanosis, erythema, jaundice or rash Neurologic: rn private duty II-XII intact. Fully oriented, alert. Appropriate mood/affect. Motor strength 5/5. No appreciable EOM palsy, facial droop or sensory deficit. Past History - Past Medical History Allergies/Adverse Reactions: Allergies Allergy/AdvReac Type Severity Reaction Status Date / Time Penicillins Allergy Severe Rash Verified 12/30/18 05:05 Home Medications: Ambulatory Orders Gabapentin 300 mg PO DAILY 06/14/13 Diltiazem Cd [Cardizem Cd -] 240 mg PO DAILY 10/11/18 [place]-3/Dha/Epa/Fish Oil [[place] 3 500 Softgel] 1 each PO DAILY 10/11/18 Allopurinol [Zyloprim -] 300 mg PO DAILY #30 tablet 11/09/18 Levothyroxine [Synthroid -] 50 mcg PO DAILY@0700 #30 tablet 11/09/18 Pantoprazole Sodium [Protonix -] 40 mg PO DAILY #30 tablet.ec 11/09/18 Atovaquone 1,500 mg PO DAILY #300 ml 11/10/18 Aspirin [ASA -] 81 mg PO DAILY 12/30/18 Anemia: Yes Asthma: Yes Cancer: Yes (myeloma) Cardiac Disorders: Yes (STENTX1 P) CVA: No COPD: No CHF: No Dementia: No Diabetes: No GI Disorders: Yes (HIATAL HERNIA) Disorders: No HTN: Yes Hypercholesterolemia: Yes Liver Disease: Yes (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) Seizures: No Thyroid Disease: Yes (Hypothyroidism ) - Surgical History Abdominal Surgery: Yes Appendectomy: No Cardiac Surgery: No Cholecystectomy: No Lung Surgery: No Neurologic Surgery: No Orthopedic Surgery: Yes (carpal tunnel ) - Immunization History Immunization Up to Date: Yes - Suicide/Smoking/Psychosocial Hx Smoking History: Unknown if ever smoked Have you smoked in the past 12 months: No Number of Cigarettes Smoked Daily: 0 If you are a former smoker, when did you quit?: 1988 Cigars Per Day: 0 Information on smoking cessation initiated: No Hx Alcohol Use: No Drug/Substance Use Hx: No Substance Use Type: None Hx Substance Use Treatment: No *Physical Exam - Vital Signs Last Vital Signs Temp Pulse Resp BP Pulse Ox 124 H 28 H 116/79 96 12/30/18 05:02 12/30/18 05:02 12/30/18 05:02 12/30/18 05:16 Moderate Sedation - Procedure Monitoring Vital Signs: Procedure Monitoring Vital Signs Temperature Pulse Rate 124 H 12/30/18 05:02 Respiratory Rate 28 H 12/30/18 05:02 Blood Pressure 116/79 12/30/18 05:02 O2 Sat by Pulse Oximetry (%) 96 12/30/18 05:16 Heart Score/ECG Review - History History: Moderately suspicious - Electrocardiogram EKG: Non specific repolarization disturbance - Age Age: >/= 65 - Risk Factors Risk Factors Heart Score: Yes Hx Hypercholesterolemia, Yes Hx Hypertension, Yes Positive family hx of cardiac disease Based on the list above the patient has:: >/=3 risk factors or Hx atherosclerotic disease - ECG Intrepretation Rhythm: Regular Rhythm ED Treatment Course - LABORATORY CBC & Chemistry Diagram: 12/30/18 05:15 12/30/18 05:15 - RADIOLOGY Radiology Studies Ordered: Category Date Time Status CHEST X-RAY PORTABLE* [RAD] Stat Radiology 12/30/18 05:11 Ordered Medical Decision Making - Medical Decision Making 12/30/18 05:40 A/P: 73-year-old woman with acute onset shortness of breath 1 hour prior to arrival Speaking full sentences on arrival. Lungs with diminished breath sounds bilaterally Accessory muscle use noted Regular tachycardic rhythm with rate of 113. +3 pedal edema noted Differential diagnosis includes but is not limited to pulmonary embolism, CHF exacerbation, pneumonia, ACS, clotted stent, electrolyte abnormalities Discharge plan patient is unable to lay flat to perform CTA of the chest to rule out pulmonary embolism. As this time the diagnosis discussion was had with Dr. kingston whether or not pulmonary embolism should be treated until skin to be performed. Intravenous coagulation held at this time as patient had a recent GI bleed. CBC, CMP, coags, cardiac profile, chest x-ray, EKG, Cabrera catheter, Lasix 40 mg IV push, BiPAP, likely admission 12/30/18 05:49 EKG reviewed by me as interpreted by Dr. kingston: Sinus tachycardia with rate of 109. Compared to previous EKG 12/18/18 as he depressions present in V3, V4, V5 no longer present. 12/30/18 06:45 Chest x-rays read by me: Increased vascular congestion when compared to previous study performed on 12/19/18. Laboratory testing unremarkable for BNP 24,303. I'll send fecal occult blood and defer heparin pending PE studies/inpatient provider decision. Dr. Puckett is in agreement with this plan and has accept the patient for inpatient admission. *DC/Admit/Observation/Transfer Diagnosis at time of Disposition: Acute exacerbation of CHF (congestive heart failure), Respiratory insufficiency , Elevated troponin - Discharge Dispostion Condition at time of disposition: Guarded Decision to Admit order: Yes - Referrals - Patient Instructions - Post Discharge Activity
[2018-12-30 05:43] LABS: BASO % 0.1 % (0-2.0); HEMATOCRIT 27.2 % (32.4-45.2); HEMOGLOBIN 9.1 GM/dL (10.7-15.3); INR 1.18 (0.83-1.09); LYMPH % 13.5 % (8-40); MCH 30.3 pg (25.7-33.7); MCHC 33.3 g/dl (32.0-36.0); MEAN CELL VOLUME 90.9 fl (80-96); MEAN PLT VOLUME 8.4 fl (7.5-11.1); MONO % 3.2 % (3.8-10.2); NEUT % 83.2 % (42.8-82.8); PLATELET COUNT 212 K/MM3 (134-434); PROTHROMBIN TIME (PATIENT) 13.9 SEC (9.7-13.0); RBC 2.99 M/mm3 (3.60-5.2); RDW 19.3 % (11.6-15.6); WHITE BLOOD COUNT 5.7 K/mm3 (4.0-10.0)
[2018-12-30 05:56] LABS: ALBUMIN 1.7 g/dl (3.4-5.0); ALK PHOS 61 U/L (45-117); ANION GAP 11 MMOL/L (8-16); BILIRUBIN,TOTAL 0.5 mg/dL (0.2-1); BLOOD UREA NITROGEN 23 mg/dL (7-18); CALCIUM 8.6 mg/dL (8.5-10.1); CHLORIDE 108 mmol/L (98-107); CO2 22 mmol/L (21-32); CREATININE 1.2 mg/dL (0.55-1.3); GLUCOSE,RANDOM 168 mg/dL (74-106); MAGNESIUM 2.4 mg/dL (1.8-2.4); N-TERMINAL BNP 24303.8 pg/ml (5-125); POTASSIUM 4.1 mmol/L (3.5-5.1); SGOT/AST 23 U/L (15-37); SGPT/ALT 21 U/L (13-61); SODIUM 141 mmol/L (136-145); TOT PROT 7.7 g/dl (6.4-8.2)
--- NOTE | 2018-12-30 06:16 | PDOC ---
*Physical Exam - Vital Signs Last Vital Signs Temp Pulse Resp BP Pulse Ox 124 H 28 H 116/79 91 L 12/30/18 05:02 12/30/18 05:02 12/30/18 05:02 12/30/18 05:42 ED Treatment Course - LABORATORY CBC & Chemistry Diagram: 12/30/18 05:15 12/30/18 05:15 - ADDITIONAL ORDERS Additional order review: Laboratory Results 12/30/18 12/30/18 12/30/18 05:15 05:15 05:15 PT with INR INR D-Dimer 1551 H VBG pH 7.42 POC VBG pCO2 35.4 L POC VBG pO2 19.7 L* Mixed VBG HCO3 22.6 Sodium 141 Potassium 4.1 Chloride 108 H Carbon Dioxide 22 Anion Gap 11 BUN 23 H Creatinine 1.2 Creat Clearance w eGFR 43.91 Random Glucose 168 H Calcium 8.6 Magnesium 2.4 Total Bilirubin 0.5 AST 23 ALT 21 Alkaline Phosphatase 61 Creatine Kinase 103 Troponin I 0.14 H B-Natriuretic Peptide 71967.8 H Total Protein 7.7 Albumin 1.7 L 12/30/18 05:15 PT with INR 13.90 H INR 1.18 H D-Dimer VBG pH POC VBG pCO2 POC VBG pO2 Mixed VBG HCO3 Sodium Potassium Chloride Carbon Dioxide Anion Gap BUN Creatinine Creat Clearance w eGFR Random Glucose Calcium Magnesium Total Bilirubin AST ALT Alkaline Phosphatase Creatine Kinase Troponin I B-Natriuretic Peptide Total Protein Albumin 12/30/18 05:15 RBC 2.99 L MCV 90.9 MCHC 33.3 RDW 19.3 H MPV 8.4 Neutrophils % 83.2 H D Lymphocytes % 13.5 D Monocytes % 3.2 L Eosinophils % 0.0 D Basophils % 0.1 Medical Decision Making - Critical Care Time Total Critical Care Time (minutes): 45 Critical Care Statement: The care of this patient involved high complexity decision making to prevent further life threatening deterioration of the patient 's condition and/or to evaluate & treat vital organ system(s) failure or risk of failure. - Medical Decision Making 12/30/18 06:15 Patient seen by the advanced practice provider under my direct supervision. Ancillary testing reviewed as necessary. I agree with plan as outlined by the advanced practice provider. *DC/Admit/Observation/Transfer Diagnosis at time of Disposition: Acute exacerbation of CHF (congestive heart failure), Respiratory insufficiency - Referrals Referrals: Yenny Benavides [Primary Care Provider] - - Patient Instructions - Post Discharge Activity
[2018-12-30 07:53] LABS: URINE APPEARANCE CLOUDY; URINE BILIRUBIN NEGATIVE (<2.0 mg/dL); URINE COLOR AMBER; URINE GLUCOSE (UA) NEGATIVE (NEGATIVE); URINE KETONE NEGATIVE (NEGATIVE); URINE LEUK ESTERASE TRACE (NEGATIVE); URINE NITRITE NEGATIVE (NEGATIVE); URINE PROTEIN 3+ (NEGATIVE)
[2018-12-30 08:21] LABS: URINE BACTERIA RARE /hpf (NONE SEEN); URINE HYALINE CAST 3 /lpf; URINE MUCUS FEW; YEAST FEW
[2018-12-30] MEDS ORDERED: ASPIRIN 81 MG CHEWABLE TABLETS ONE (13:57)
[2018-12-30] MEDS ORDERED: ALLOPURINOL 100 MG TABLET (FP) ONE (13:58)
[2018-12-30] MEDS ORDERED: dilTIAZem HCL 60 MG TABLET (FP) ONE (13:58)
[2018-12-30] MEDS ORDERED: PANTOPRAZOLE 40 MG TABLET (FP) ONE (13:58)
[2018-12-30] MEDS: PANTOPRAZOLE 40 MG TABLET (FP) PO SCH (13:58)
[2018-12-30] MEDS: ASPIRIN 81 MG CHEWABLE TABLETS PO SCH (13:59)
[2018-12-30] MEDS: ALLOPURINOL 300 MG TABLET (FP) PO SCH (13:59)
[2018-12-30] MEDS ORDERED: GABAPENTIN 100 MG CAPSULE (FP) PO SCH (14:00)
[2018-12-30] MEDS ORDERED: GABAPENTIN 100 MG CAPSULE (FP) ONE (14:00)
--- NOTE | 2018-12-30 16:01 | CON.CARD ---
Consult Consult Specialty:: Cardiology Referred by:: Dr. Puckett Reason for Consultation:: CHF - History of Present Illness Chief Complaint: SOB History of Present Illness: 73F with Multiple Myeloma on chemo, anemia, recent NSTEMI earlier this month s/ p HOLLY to D1 at [facility], chronic systolic CHF with EF 45-50% admitted for worsening dyspnea, exertional intolerance. In ER, BNP markedly elevated and CXR showing increased PVC. D- dimer also elevated. She was treated with a dose of IV Lasix and has had mild symptom improvement. Denies CP, palpitations, syncope. + PND and orthopnea symptoms. Had colonoscopy 12/21 at [place] showed a rectal polyp. Had UTI with gram negative rods, > 100K treated w/ 3 days CIPRO - History Source History Provided By: Patient - Past Medical History Cardio/Vascular: Yes: CAD (s/p HOLLY D1 this month after NSTEMI), CHF (Chronic systolic CHF, mildly reduced LV function with EF 45%), HTN, Hyperlipdemia Pulmonary: Yes: Asthma Gastrointestinal: Yes: Other (hiatal hernia; rectal polyp) Renal/: Yes: Renal Inusuff, Other (proteinuria) Heme/Onc: Yes: Other (Multiple Myeloma on chemo) Psych: Yes: Depression Endocrine: Yes: Hypothyroidism - Past Surgical History Past Surgical History: Yes: Breast Biopsy (right for cysts), Hernia Repair ( laparoscopic hiatal), Hysterectomy, Tubal Ligation - Alcohol/Substance Use Hx Alcohol Use: No History of Substance Use: reports: None - Smoking History Smoking history: Unknown if ever smoked Have you smoked in the past 12 months: No Aproximately how many cigarettes per day: 0 If you are a former smoker, when did you quit?: 1987 - Social History ADL: Independent History of Recent Travel: No Home Medications - Allergies Allergies/Adverse Reactions: Allergies Allergy/AdvReac Type Severity Reaction Status Date / Time Penicillins Allergy Severe Rash Verified 12/30/18 05:05 - Home Medications Home Medications: Ambulatory Orders Gabapentin 300 mg PO DAILY 06/14/13 Diltiazem Cd [Cardizem Cd -] 240 mg PO DAILY 10/11/18 [place]-3/Dha/Epa/Fish Oil [[place] 3 500 Softgel] 1 each PO DAILY 10/11/18 Allopurinol [Zyloprim -] 300 mg PO DAILY #30 tablet 11/09/18 Levothyroxine [Synthroid -] 50 mcg PO DAILY@0700 #30 tablet 11/09/18 Pantoprazole Sodium [Protonix -] 40 mg PO DAILY #30 tablet.ec 11/09/18 Atovaquone 1,500 mg PO DAILY #300 ml 11/10/18 Aspirin [ASA -] 81 mg PO DAILY 12/30/18 Family Disease History - Family Disease History Family Disease History: [place]: Daughter (1 passed at 14yo of Hodgkin's lymphoma; 1 passed at 48 of lupus), Other: Daughter Review of Systems - Review of Systems Constitutional: denies: No Symptoms, Chills, Diaphoresis, Fever, Lethargy, Loss of Appetite, Malaise, Night Sweats, Unintentional Wgt. Loss, Weakness, Other Neck: denies: No Symptoms, Decreased ROM, Lumps, Pain on Movement, Stiffness, Swollen Glands, Tenderness, Other Cardiovascular: reports: Shortness of Breath Respiratory: reports: Exercise Intolerance Gastrointestinal: denies: No Symptoms, Abdominal Pain, Bloating, Constipation, Diarrhea, Dysphagia, Indigestion, Melena, Nausea, Rectal Bleeding, Vomiting, Vomiting Blood, Other Genitourinary: denies: No Symptoms, Burning, Discharge, Dysuria, Flank Pain, Frequency, Hematuria, Incontinence, Lesions, Menses, Pain, Testicular Mass, Testicular Pain, Testicular Swelling, Urgency, Vaginal Bleeding, Other Breasts: denies: No Symptoms Reported, See HPI, Breast Implants, Discharge from Nipple, Lumps, Pain, Skin Changes, Other Musculoskeletal: denies: No Symptoms, Back Pain, Crepitus, Decreased ROM, Extremity Pain, Joint Pain, Joint Swelling, Muscle Pain, Muscle Cramps, Muscle Weakness, Other Integumentary: denies: No Symptoms, Blister, Bruising, Change in Color, Eczema, Erythema, Incision, Lesions, Lump, Pallor, Pruritis, Rash, Wound, Other Neurological: denies: No Symptoms, Change in LOC, Change in Speech, Confusion, Dizziness, Headache, Incoordination, Numbness, Parasthesia, Pre-Existing Deficit , Seizure, Syncope, Tremors, Unsteady Gait, Weakness, Other Endocrine: denies: No Symptoms, Excessive Sweating, Flushing, Increased Hunger, Increased Thirst, Intolerance to Cold, Intolerance to Heat, Unexplained Weight Gain, Unexplained Weight Loss, Other Hematology/Lymphatic: denies: No Symptoms, Easily Bruised, Excessive Bleeding, Swollen Glands, Other Psychiatric: denies: No Symptoms, Altered Sleep Pattern, Anxiety, Depression, Hallucinations, Panic, Paranoia, Suicidal, Other - Risk Factors Known Risk Factors: Yes: Hypertension, Prior OR /Emb Stroke, Other (Known CAD s/ p NSTEMI early Dec 2018, s/p HOLLY D1) Vital Signs: Vital Signs Temperature 98.2 F 12/30/18 14:00 Pulse Rate 110 H 12/30/18 14:00 Respiratory Rate 18 12/30/18 14:00 Blood Pressure 119/72 12/30/18 14:00 O2 Sat by Pulse Oximetry (%) 96 12/30/18 14:00 Constitutional: Yes: No Distress, Calm Eyes: Yes: Conjunctiva Clear Respiratory: Yes: Other (Decreased breath sounds at bases, rales 1/3 b/l) Gastrointestinal: Yes: Soft Cardiovascular: Yes: Regular Rate and Rhythm JVD: Yes Carotid Bruit: No PMI: Non-Displaced Heart Sounds: Yes: S1, S2, S3 Edema: Yes Edema: LLE: 1+, RLE: 1+ Peripheral Pulses WNL: Yes Integumentary: Yes: WNL Neurological: Yes: Alert, Oriented ...Motor Strength: WNL Psychiatric: Yes: WNL - Other Data Labs, Other Data: CBC, BMP 12/30/18 05:15 12/30/18 05:15 INR, PTT INR 1.18 (0.83-1.09) H 12/30/18 05:15 Troponin, BNP 12/30/18 05:15 Troponin I 0.14 H B-Natriuretic Peptide 33762.8 H Troponin, BNP 12/30/18 05:15 Troponin I 0.14 H B-Natriuretic Peptide 21985.8 H Sinus tach 109 bpm, leftward axis, Cannot r/o old septal OR, NSST changes V5. V6. I, avL Echo: Report Reviewed (45-50% EF, Mild MR, trace TR) Prior Cardiac Procedures: PTCA with Stent (s/p NSTEMI HOLLY to D1 this month at [facility]) Imaging - Results X-ray: Image Reviewed (bilateral congestive changes and pleural effusions.) Problem List - Problems (1) Acute on chronic systolic CHF (congestive heart failure) Code(s): I50.23 - ACUTE ON CHRONIC SYSTOLIC (CONGESTIVE) HEART FAILURE (2) CAD (coronary artery disease) Code(s): I25.10 - ATHSCL HEART DISEASE OF [place] CORONARY ARTERY W/O ANG PCTRS Qualifiers: Coronary Disease-Associated Artery/Lesion type: [place] artery Associated angina: without angina (3) Multiple myeloma Code(s): C90.00 - MULTIPLE MYELOMA NOT HAVING ACHIEVED REMISSION Qualifiers: Multiple myeloma remission status: not in remission Qualified Code(s): C90.00 - Multiple myeloma not having achieved remission (4) Anemia Code(s): D64.9 - ANEMIA, UNSPECIFIED Qualifiers: Chronic kidney disease stage: unspecified stage (5) Elevated troponin I level Code(s): R74.8 - ABNORMAL LEVELS OF OTHER SERUM ENZYMES Assessment/Plan IMP: Acute on chronic systolic CHF Cardiomyopathy, mild LV systolic dysfunction Recent NSTEMI s/p HOLLY D1 Multiple myeloma on chemotherapy Chronic Anemia REC: 1. Due baseline BP of 90-100mmHg systolic, diuresis with Lasix gtts may be more effective than bolus dosing. 2. D/C Cardizem- may be contributing to hypotension (Vasodilatory effects). Also not preferred with LV systolic dysfx. 3. Switch to low dose Toprol in AM. 4. Strict Is/Os (higgins), daily weights and daily BMP to monitor renal fxn. 5. Will try to initiate ELLYN or ARB this admission if BP allows. 6. To continue ASA/Plavix s/p recent NSTEMI w/ HOLLY to D1 (new generation HOLLY will require Plavix for 3 months, ASA lifelong) 7. Add Statin 8. To repeat Echo in AM 9. Supplimental O2 10. F/u CTA, done to rule out PE 11. DVT prophylaxis. 12. To continue telemetry: patient had a very short run of self limited PAF last admission (< 10 beats); will monitor for recurrence. Was not anticoagulated last admission due to anemia and GI bleed (C-scope showed rectal polyp which could be addressed at later date).
[2018-12-30] MEDS ORDERED: FUROSEMIDE INJECTION 100 MG in SODIUM CHLORIDE 90 ML IVPB SCH (16:30)
--- NOTE | 2018-12-30 16:56 | EKG ---
Test Reason : Blood Pressure : / mmHG Vent. Rate : 109 BPM Atrial Rate : 109 BPM P-R Int : 152 ms QRS Dur : 106 ms QT Int : 352 ms P-R-T Axes : 050 -26 129 degrees QTc Int : 474 ms SINUS TACHYCARDIA ANTERIOR INFARCT , AGE UNDETERMINED ABNORMAL ECG WHEN COMPARED WITH ECG OF 18-DEC-2018 11:18, ST NO LONGER DEPRESSED IN ANTERIOR LEADS NONSPECIFIC T WAVE ABNORMALITY NO LONGER EVIDENT IN INFERIOR LEADS Confirmed by JORGE PALMER, FILIBERTO ([id number]) on 12/30/2018 4:55:37 PM Referred By: Confirmed By:FILIBERTO PATEL MD
[2018-12-30] MEDS: ALBUTEROL SO4 2.5/IPRATROPIUM 0.5 INH SOL 3 ML VIAL.NEB. NEB PRN (20:30)
[2018-12-30] MEDS: ATORVASTATIN CA 40 MG TABLET (FP) PO SCH (21:56)
[2018-12-30] MEDS: HEPARIN NA (PORCINE) 5,000 UNITS/ML 1ML VIAL SQ SCH (21:56)
--- NOTE | 2018-12-30 23:09 | CONSULT ---
Consult - text type - Consultation Consultation Note: Patient seen and examined 73 y/o well known to our service, with myeloma/amyloidosis, recent admission for gi bleed/symptomatic anemia/ chest pain, s/p cardiac stenting at [facility], comes in with 1 day h/o shortness of breath Was seen yesterday and received velcade/cytoxan/dexamethasone Also with hemorrhoidal pain/ sacral decubitus Currently feeling better AFVSS Cor: RSR, No murmurs, No gallops Lungs: crackles at bases Abd: Soft, Normal bowel sounds, No organomegaly Ext:2+ edema Labs/Meds reviewed A/P 73 y/o patient with myeloma/amyloidosis , recent admission for gi bleed/ symptomatic anemia/chest pain, s/p cardiac stenting comes in with shortness of breath. Was seen yesterday and received velcade/cytoxan/dexamethasone BNP elevated CTA--no PE, infiltrates f/u cardiology recs will request ID consult Wound care consult will request nephrology consult will follow
--- NOTE | 2018-12-31 00:58 | HP ---
Admitting History and Physical - Admission History of Present Illness: Pt is a 73 y/o female w/ PMH significant for hypertension, paroxysmal A. fib, NSTEMI, CAD with stent placed 12/23/18, hyperlipidemia, multiple myeloma, CHF, amyloid, CKD and anemia. Pt presented to the emergency department for evaluation of acute onset shortness of breath. Patient states she was asleep when she suddenly became increasingly short of breath. Report mild chest pain which she described as a tightness when the shortness of breath presented. She states that tightness and pain in her chest is different from when she had her stent placed. Patient was given 1 sl nitroglycerin enroute the emergency department and placed on BiPAP and IV lasix. - Past Medical History Cardiovascular: Yes: CAD (s/p HOLLY D1 this month after NSTEMI), CHF (Chronic systolic CHF, mildly reduced LV function with EF 45%), HTN, Hyperlipdemia Pulmonary: Yes: Asthma Gastrointestinal: Yes: Other (hiatal hernia; rectal polyp) Renal/: Yes: Renal Inusuff, Other (proteinuria) Heme/Onc: Yes: Other (Multiple Myeloma on chemo) Psych: Yes: Depression Endocrine: Yes: Hypothyroidism - Past Surgical History Past Surgical History: Yes: Breast Biopsy (right for cysts), Hernia Repair ( laparoscopic hiatal), Hysterectomy, Tubal Ligation - Smoking History Smoking history: Unknown if ever smoked Have you smoked in the past 12 months: No Aproximately how many cigarettes per day: 0 If you are a former smoker, when did you quit?: 1987 - Alcohol/Substance Use Hx Alcohol Use: No History of Substance Use: reports: None - Social History ADL: Independent History of Recent Travel: No Home Medications - Allergies Allergies/Adverse Reactions: Allergies Allergy/AdvReac Type Severity Reaction Status Date / Time Penicillins Allergy Severe Rash Verified 12/30/18 05:05 - Home Medications Home Medications: Ambulatory Orders Gabapentin 300 mg PO DAILY 06/14/13 Diltiazem Cd [Cardizem Cd -] 240 mg PO DAILY 10/11/18 [place]-3/Dha/Epa/Fish Oil [[place] 3 500 Softgel] 1 each PO DAILY 10/11/18 Allopurinol [Zyloprim -] 300 mg PO DAILY #30 tablet 11/09/18 Levothyroxine [Synthroid -] 50 mcg PO DAILY@0700 #30 tablet 11/09/18 Pantoprazole Sodium [Protonix -] 40 mg PO DAILY #30 tablet.ec 11/09/18 Atovaquone 1,500 mg PO DAILY #300 ml 11/10/18 Aspirin [ASA -] 81 mg PO DAILY 12/30/18 Family Disease History - Family Disease History Family History: Unremarkable Family Disease History: [place]: Daughter (1 passed at 14yo of Hodgkin's lymphoma; 1 passed at 48 of lupus), Other: Daughter Review of Systems - Review of Systems Constitutional: reports: Loss of Appetite, Weakness Eyes: reports: No Symptoms HENT: reports: No Symptoms Neck: reports: No Symptoms Cardiovascular: reports: Chest Pain, Shortness of Breath Respiratory: reports: SOB Gastrointestinal: reports: No Symptoms Genitourinary: reports: No Symptoms Physical Examination Vital Signs: Vital Signs Temperature 97.8 F 12/30/18 16:59 Pulse Rate 85 12/30/18 17:05 Respiratory Rate 20 12/30/18 17:25 Blood Pressure 92/64 12/30/18 17:05 O2 Sat by Pulse Oximetry (%) 97 12/31/18 00:49 Eyes: Yes: WNL HENT: Yes: WNL Neck: Yes: WNL, Supple Cardiovascular: Yes: WNL, Regular Rate and Rhythm Respiratory: Yes: Rales Gastrointestinal: Yes: WNL, Normal Bowel Sounds, Soft Edema: LLE: 2+, RLE: 2+ Neurological: Yes: WNL, Alert, Oriented ...Motor Strength: WNL Labs: CBC, BMP 12/30/18 05:15 12/30/18 05:15 Problem List - Problems (1) Acute on chronic systolic CHF (congestive heart failure) Assessment/Plan: Cont IV lasix drip Monitor electrolytes Admitted to tele Cardio consult Code(s): I50.23 - ACUTE ON CHRONIC SYSTOLIC (CONGESTIVE) HEART FAILURE (2) Acute respiratory failure Assessment/Plan: Due to volume overload Cont diuresis and monitor Pulmonary consult Code(s): J96.00 - ACUTE RESPIRATORY FAILURE, UNSP W HYPOXIA OR HYPERCAPNIA (3) CAD (coronary artery disease) Assessment/Plan: Cont plavix/asa S/P NSTEMI and stent placement Code(s): I25.10 - ATHSCL HEART DISEASE OF [place] CORONARY ARTERY W/O ANG PCTRS Qualifiers: Coronary Disease-Associated Artery/Lesion type: [place] artery Associated angina: without angina (4) CKD (chronic kidney disease) Assessment/Plan: Due to proteinuria/Multiple myeloma/amyloid As per renal Code(s): N18.9 - CHRONIC KIDNEY DISEASE, UNSPECIFIED (5) Multiple myeloma Assessment/Plan: As per onco consult Code(s): C90.00 - MULTIPLE MYELOMA NOT HAVING ACHIEVED REMISSION Qualifiers: Multiple myeloma remission status: not in remission Qualified Code(s): C90.00 - Multiple myeloma not having achieved remission (6) Anemia Assessment/Plan: Multifactorial Monitor H/H Code(s): D64.9 - ANEMIA, UNSPECIFIED (7) HLD (hyperlipidemia) Assessment/Plan: Cont lipitor Code(s): E78.5 - HYPERLIPIDEMIA, UNSPECIFIED Qualifiers: Hyperlipidemia type: unspecified Qualified Code(s): E78.5 - Hyperlipidemia , unspecified (8) HTN (hypertension) Assessment/Plan: Cont metoprolol Code(s): I10 - ESSENTIAL (PRIMARY) HYPERTENSION Qualifiers: Hypertension type: essential hypertension Qualified Code(s): I10 - Essential (primary) hypertension (9) Hypothyroidism Assessment/Plan: Cont levothyroxine Code(s): E03.9 - HYPOTHYROIDISM, UNSPECIFIED Qualifiers: Hypothyroidism type: acquired Qualified Code(s): E03.9 - Hypothyroidism, unspecified
[2018-12-31] MEDS: LEVOTHYROXINE NA 50 MCG TABLET (FP) PO SCH (06:50)
[2018-12-31 07:59] LABS: BASO % 0.2 % (0-2.0); HEMATOCRIT 23.5 % (32.4-45.2); HEMOGLOBIN 7.9 GM/dL (10.7-15.3); LYMPH % 16.7 % (8-40); MCHC 33.6 g/dl (32.0-36.0); MEAN CELL VOLUME 92.4 fl (80-96); MEAN PLT VOLUME 8.8 fl (7.5-11.1); NEUT % 73.1 % (42.8-82.8); PLATELET COUNT 175 K/MM3 (134-434); RBC 2.54 M/mm3 (3.60-5.2); RDW 19.4 % (11.6-15.6); WHITE BLOOD COUNT 5.6 K/mm3 (4.0-10.0)
[2018-12-31 08:19] LABS: ALBUMIN 1.6 g/dl (3.4-5.0); ALK PHOS 52 U/L (45-117); ANION GAP 9 MMOL/L (8-16); BILIRUBIN,TOTAL 0.4 mg/dL (0.2-1); BLOOD UREA NITROGEN 29 mg/dL (7-18); CALCIUM 8.2 mg/dL (8.5-10.1); CHLORIDE 109 mmol/L (98-107); CO2 25 mmol/L (21-32); CREATININE 1.2 mg/dL (0.55-1.3); GLUCOSE,RANDOM 90 mg/dL (74-106); MAGNESIUM 2.4 mg/dL (1.8-2.4); POTASSIUM 3.5 mmol/L (3.5-5.1); SGOT/AST 15 U/L (15-37); SGPT/ALT 22 U/L (13-61); SODIUM 142 mmol/L (136-145); TOT PROT 6.8 g/dl (6.4-8.2)
--- NOTE | 2018-12-31 08:56 | PN ---
Progress Note, Physician Chief Complaint: feels "much better" Lasshazia gtts held overnight as BP as around 90mmHG systolic She has lost weight Orthopnea improved. Not coughing - Current Medication List Current Medications: Active Medications Albuterol/Ipratropium (Duoneb -) 1 amp NEB Q6H PRN PRN Reason: SHORTNESS OF BREATH Last Admin: 12/30/18 20:30 Dose: 1 amp Allopurinol (Zyloprim -) 300 mg PO DAILY [facility] Last Admin: 12/30/18 13:59 Dose: 300 mg Aspirin (Asa -) 81 mg PO DAILY [facility] Last Admin: 12/30/18 13:59 Dose: 81 mg Atorvastatin Calcium (Lipitor -) 40 mg PO HS [facility] Last Admin: 12/30/18 21:56 Dose: 40 mg Atovaquone (Mepron -) 1,500 mg PO 0800 [facility] Clopidogrel Bisulfate (Plavix -) 75 mg PO DAILY [facility] Heparin Sodium (Porcine) (Heparin -) 5,000 unit SQ BID [facility] Last Admin: 12/30/18 21:56 Dose: 5,000 unit Furosemide 100 mg/ Sodium (Chloride) 100 mls @ 7.5 mls/hr IVPB ASDIR [facility]; Protocol Stop: 01/01/19 23:59 Levothyroxine Sodium (Synthroid -) 50 mcg PO DAILY@0700 [facility] Last Admin: 12/31/18 06:50 Dose: 50 mcg Metoprolol Succinate (Toprol Xl -) 12.5 mg PO DAILY [facility] Pantoprazole Sodium (Protonix -) 40 mg PO DAILY [facility] Last Admin: 12/30/18 13:58 Dose: 40 mg - Objective Vital Signs: Vital Signs Temperature 98.2 F 12/31/18 02:00 Pulse Rate 91 H 12/31/18 06:00 Respiratory Rate 18 12/31/18 08:08 Blood Pressure 90/52 L 12/31/18 06:00 O2 Sat by Pulse Oximetry (%) 96 12/31/18 08:08 Constitutional: Yes: No Distress Cardiovascular: Yes: Regular Rate and Rhythm Respiratory: Yes: Other (decreased breath sounds at bases) Gastrointestinal: Yes: Soft Edema: Yes Edema: LLE: 2+, RLE: 2+ Neurological: Yes: Alert, Oriented ...Motor Strength: WNL Labs: CBC, BMP 12/31/18 05:30 12/31/18 05:30 INR, PTT INR 1.18 (0.83-1.09) H 12/30/18 05:15 Laboratory Tests 12/18/18 12/18/18 12/19/18 06:00 06:00 05:15 WBC 5.1 Hgb 9.5 L Hct Plt Count 124 L D-Dimer Sodium 142 Potassium 4.1 BUN Creatinine 0.9 Random Glucose Calcium Magnesium Creatine Kinase 58 Troponin I 0.33 H B-Natriuretic Peptide Stool Occult Blood 12/30/18 12/30/18 12/30/18 05:15 05:15 05:15 WBC 5.7 Hgb 9.1 L Hct 27.2 L Plt Count 212 D-Dimer 1551 H Sodium 141 Potassium 4.1 BUN 23 H Creatinine 1.2 Random Glucose 168 H Calcium Magnesium Creatine Kinase 103 Troponin I 0.14 H B-Natriuretic Peptide 14567.8 H Stool Occult Blood 12/30/18 12/30/18 12/31/18 06:38 17:30 05:30 WBC 5.6 Hgb 7.9 L Hct 23.5 L Plt Count 175 D-Dimer Sodium Potassium BUN Creatinine Random Glucose Calcium Magnesium Creatine Kinase 69 Troponin I 0.18 H B-Natriuretic Peptide Stool Occult Blood Negative 12/31/18 05:30 WBC Hgb Hct Plt Count D-Dimer Sodium 142 Potassium 3.5 BUN 29 H Creatinine 1.2 Random Glucose Calcium 8.2 L Magnesium 2.4 Creatine Kinase Troponin I B-Natriuretic Peptide Stool Occult Blood - ....Imaging X-ray: Image Reviewed (Compared to yesterday, PVC improved.) Problem List - Problems (1) Acute on chronic systolic CHF (congestive heart failure) Code(s): I50.23 - ACUTE ON CHRONIC SYSTOLIC (CONGESTIVE) HEART FAILURE (2) CAD (coronary artery disease) Code(s): I25.10 - ATHSCL HEART DISEASE OF [place] CORONARY ARTERY W/O ANG PCTRS Qualifiers: Coronary Disease-Associated Artery/Lesion type: [place] artery Associated angina: without angina (3) Multiple myeloma Code(s): C90.00 - MULTIPLE MYELOMA NOT HAVING ACHIEVED REMISSION Qualifiers: Multiple myeloma remission status: not in remission Qualified Code(s): C90.00 - Multiple myeloma not having achieved remission (4) Anemia Code(s): D64.9 - ANEMIA, UNSPECIFIED Qualifiers: Chronic kidney disease stage: unspecified stage (5) Elevated troponin I level Code(s): R74.8 - ABNORMAL LEVELS OF OTHER SERUM ENZYMES Assessment/Plan IMP: Acute on chronic systolic CHF Cardiomyopathy, mild LV systolic dysfunction Recent NSTEMI s/p HOLLY D1 Multiple myeloma on chemotherapy Chronic Anemia- guaiac negative. REC: 1. Baseline BP of 90-100mmHg systolic, diuresis with Lasix gtts may be more effective than bolus dosing. Will decrease rate to 5mg/hr. CXR is improved and she is clinically improved. 2. D/C Cardizem- may be contributing to hypotension (Vasodilatory effects). Also not preferred with LV systolic dysfx. 3. Switch to low dose Toprol XL today. 4. Strict Is/Os (higgins), daily weights and daily BMP to monitor renal fxn. 5. Will try to initiate ELLYN or ARB this admission if BP allows. 6. To continue ASA/Plavix/Atorvastatin s/p recent NSTEMI w/ HOLLY to D1 (new generation HOLLY will require Plavix for 3 months, ASA lifelong) 7. To repeat Echo in AM 8. Supplimental O2 9. CTA negative for PE, b/l effusions and "consolidation". May be all volume- defer Rx of possible PNA to PMD and Onc 10. DVT prophylaxis. 11. To continue telemetry: patient had a very short run of self limited PAF last admission (< 10 beats); will monitor for recurrence. Was not anticoagulated last admission due to anemia and GI bleed (C-scope showed rectal polyp which could be addressed at later date). 12. Repeat CBC later today
[2018-12-31] MEDS ORDERED: FUROSEMIDE INJECTION 100 MG in SODIUM CHLORIDE 90 ML IVPB SCH (09:00)
[2018-12-31] MEDS: ATOVAQUONE 750 MG/5 ML (UNIT-DOSE PACKAGING) PO SCH (09:57)
--- NOTE | 2018-12-31 09:57 | ECHO ---
Name: TATIANASHERRY FONG Exam:Adult Echocardiogram Study Date: 12/31/2018 08:11 AM Age: 73 yrs Reason For Study: CHF Height: 62 in Weight: 168 lb BSA: 1.8 m2 MMode/2D Measurements & Calculations IVSd: 1.2 cm Ao root diam: 2.6 cm LVIDd: 5.4 cm LA dimension: 3.5 cm LVIDs: 3.9 cm LVPWd: 0.89 cm EDV(Teich): 139.5 ml LVOT diam: 2.0 cm ESV(Teich): 67.8 ml LAV (MOD-bp): 71.0 ml Doppler Measurements & Calculations MV E max carlos: 101.0 cm/sec Ao V2 max: 159.9 cm/sec MV A max carlos: 68.9 cm/sec Ao max P.2 mmHg MV E/A: 1.5 AI P1/2t: 319.0 msec MV dec time: 0.11 sec BRYAN(V,D): 2.4 cm2 AI max carlos: 273.7 cm/sec LV V1 max P.9 mmHg AI max P.0 mmHg LV V1 max: 121.3 cm/sec AI dec slope: 251.3 cm/sec2 MR max carlos: 343.6 cm/sec TR max carlos: 298.1 cm/sec MR max P.7 mmHg TR max P.6 mmHg PA V2 max: 112.7 cm/sec Med Peak E' Carlos: 5.8 cm/sec PA max P.1 mmHg Med E/e': 17.5 Lat Peak E' Carlos: 6.5 cm/sec Lat E/e': 15.5 PI Vmax: 240.3 cm/sec Left Ventricle The left ventricle is borderline dilated. Left ventricular systolic function is borderline reduced. E jection Fraction = 50%. There is borderline global hypokinesis of the left ventricle. Right Ventricle The right ventricle is normal in size and function. Atria The left atrium is mildly dilated. Right atrial size is normal. Mitral Valve The mitral valve is normal in structure and function. There is no mitral valve stenosis. There is mil d mitral regurgitation. Tricuspid Valve The tricuspid valve is normal in structure and function. There is mild tricuspid regurgitation. Right ventricular systolic pressure is elevated at 30-40mmHg. Aortic Valve The aortic valve is trileaflet. No hemodynamically significant valvular aortic stenosis. Mild aortic regurgitation. Pulmonic Valve The pulmonic valve is not well seen, but is grossly normal. There is no pulmonic valvular stenosis. M ild pulmonic valvular regurgitation. Great Vessels The aortic root is normal size. Pericardium/Pleura There is no pericardial effusion. There is a pleural effusion present. Interpretation Summary The left ventricle is borderline dilated. There is borderline global hypokinesis of the left ventricle. Left ventricular systolic function is borderline reduced. Ejection Fraction = 50%. The right ventricle is normal in size and function. The left atrium is mildly dilated. There is mild mitral regurgitation. There is mild tricuspid regurgitation. Right ventricular systolic pressure is elevated at 30-40mmHg. Mild aortic regurgitation. Mild pulmonic valvular regurgitation. There is a pleural effusion present. MD Shankar *José Luis 12/31/2018 09:56 AM
[2018-12-31] MEDS: metoPROLOL SUCCINATE 25 MG TAB.SR.24H (FP) PO SCH (10:00)
[2018-12-31] MEDS: CLOPIDOGREL BISULFATE 75 MG TABLET (FP) PO SCH (10:00)
[2018-12-31] MEDS ORDERED: FUROSEMIDE 40 MG/4 ML INJECTABLE VIAL IVPUSH SCH (10:00)
[2018-12-31] MEDS: ALLOPURINOL 300 MG TABLET (FP) PO SCH (10:00)
[2018-12-31] MEDS: PANTOPRAZOLE 40 MG TABLET (FP) PO SCH (10:00)
[2018-12-31] MEDS: HEPARIN NA (PORCINE) 5,000 UNITS/ML 1ML VIAL SQ SCH ×2 (10:00→21:29)
[2018-12-31] MEDS: ASPIRIN 81 MG CHEWABLE TABLETS PO SCH (10:00)
--- NOTE | 2018-12-31 11:44 | CONSULT ---
- Consultation REQUESTING PROVIDER: Ruperto Marquez REQUEST: We have been asked to surgically evaluate this patient's sacral ulcer. PCP: Paulette Puckett HPI: Called to vinny 73yo female admitted to [facility] 12/04 acute onset of SOB. Occurred while at rest/sleeping. Current working diagnosis of exacerbation of CHF. During H&P it was noted that she has a sacral ulcer. PMHx: HTN, Paroxysmal Afib, CAD, Hyperlipidemia, Multiple Myeloma (on Chemo), Systolic CHF, Cardiomyopathy, NSTEMI, Chronic Anemia PSHx: Coronary Stent 12/23/18 MEDS: Gabapentin 300 mg PO DAILY 06/14/13 Diltiazem Cd [Cardizem Cd -] 240 mg PO DAILY 10/11/18 [place]-3/Dha/Epa/Fish Oil [[place] 3 500 Softgel] 1 each PO DAILY 10/11/18 Allopurinol [Zyloprim -] 300 mg PO DAILY #30 tablet 11/09/18 Levothyroxine [Synthroid -] 50 mcg PO DAILY@0700 #30 tablet 11/09/18 Pantoprazole Sodium [Protonix -] 40 mg PO DAILY #30 tablet.ec 11/09/18 Atovaquone 1,500 mg PO DAILY #300 ml 11/10/18 Aspirin [ASA -] 81 mg PO DAILY 12/30/18 ALLERGIES: PCNs PE: GENERAL: Awake, alert, and fully oriented, in no acute distress. SKIN: Stage 1 pressurel ulcer just proximal to pilonidal cleft, ~ 1.5 x 1.5 cm. Clean. No evidence of infection Last Vital Signs Temp Pulse Resp BP Pulse Ox 98.1 F 93 H 18 95/48 L 96 12/31/18 10:00 12/31/18 10:00 12/31/18 10:00 12/31/18 10:00 12/31/18 08:08 CBC, BMP 12/31/18 05:30 12/31/18 05:30 INR, PTT INR 1.18 (0.83-1.09) H 12/30/18 05:15 Problem List - Problems (1) Pressure ulcer of sacral region, stage 1 Assessment/Plan: 73 yo female admitted with acute on chronic systolic CHF. Discovered during her H&P that she as a sacral wound. Following recommendations: -Reposition every two hours while in bed -Use drawsheets and Trendelenburg when repositioning to reduce friction and shear -Manage incontinence via timely cleansing, use of appropriate incontinence disposables and use of barrier ointment to intact skin -Ensure adequate hydration/nutrition, supplementation per primary team -Ensure off-loading to all bony areas (heels, ankles, hips and tailbone) with Allevyn/Optifoam -Cont medical management -No surgical intervention, re-consult prn On behalf of Dr. Marquez, thank you for the opportunity to participate in your patients care. Code(s): L89.151 - PRESSURE ULCER OF SACRAL REGION, STAGE 1 (2) Acute on chronic systolic CHF (congestive heart failure) Code(s): I50.23 - ACUTE ON CHRONIC SYSTOLIC (CONGESTIVE) HEART FAILURE (3) Anemia Code(s): D64.9 - ANEMIA, UNSPECIFIED Qualifiers: Chronic kidney disease stage: unspecified stage Visit type - Case Type Case Type: ED Admission - Emergency Emergency Visit: Yes ED Registration Date: 12/30/18 Care time: The patient presented to the Emergency Department on the above date and was hospitalized for further evaluation of their emergent condition. - New patient This patient is new to me today: Yes Date on this admission: 12/31/18
--- NOTE | 2018-12-31 12:40 | PN ---
Progress Note (short form) - Note Progress Note: PULMONARY CONSULTATION DICTATED 12/31/18 IMP ACUTE RESPIRATORY FAILURE ACUTE ON CHRONIC CHF CARDIOMYOPATHY ASHD S/P NSTEMI,S/P HOLLY STENT 12/21 MYELOMA /AMYLOIDOSIS ON CHEMO PULMONARY HTN ANEMIA H/O GI BLEED +TROPONIN PLAN IV LASIX O2 NIPPV NEEDED F/U CHEST X-RAYS DAILY WT MONITOR LYTES MONITOR H+H NORMAL TRANSFUSION THRESHOLD DR GREY Problem List - Problems (1) Acute exacerbation of CHF (congestive heart failure) Code(s): I50.9 - HEART FAILURE, UNSPECIFIED (2) Acute on chronic systolic CHF (congestive heart failure) Code(s): I50.23 - ACUTE ON CHRONIC SYSTOLIC (CONGESTIVE) HEART FAILURE (3) Anemia Code(s): D64.9 - ANEMIA, UNSPECIFIED Qualifiers: Chronic kidney disease stage: unspecified stage (4) CAD (coronary artery disease) Code(s): I25.10 - ATHSCL HEART DISEASE OF [place] CORONARY ARTERY W/O ANG PCTRS Qualifiers: Coronary Disease-Associated Artery/Lesion type: [place] artery Associated angina: without angina (5) Elevated troponin Code(s): R74.8 - ABNORMAL LEVELS OF OTHER SERUM ENZYMES (6) Multiple myeloma Code(s): C90.00 - MULTIPLE MYELOMA NOT HAVING ACHIEVED REMISSION Qualifiers: Multiple myeloma remission status: not in remission Qualified Code(s): C90.00 - Multiple myeloma not having achieved remission (7) Respiratory insufficiency Code(s): R06.89 - OTHER ABNORMALITIES OF BREATHING (8) HLD (hyperlipidemia) Code(s): E78.5 - HYPERLIPIDEMIA, UNSPECIFIED Qualifiers: Hyperlipidemia type: unspecified Qualified Code(s): E78.5 - Hyperlipidemia , unspecified (9) HTN (hypertension) Code(s): I10 - ESSENTIAL (PRIMARY) HYPERTENSION Qualifiers: Hypertension type: essential hypertension Qualified Code(s): I10 - Essential (primary) hypertension (10) PAF (paroxysmal atrial fibrillation) Code(s): I48.0 - PAROXYSMAL ATRIAL FIBRILLATION (11) Multiple myeloma Code(s): C90.00 - MULTIPLE MYELOMA NOT HAVING ACHIEVED REMISSION (12) PHT (pulmonary hypertension) Code(s): I27.20 - PULMONARY HYPERTENSION, UNSPECIFIED (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
[2018-12-31 14:44] LABS: BASO % 0.2 % (0-2.0); EOS % 0.1 % (0-4.5); HEMATOCRIT 24.3 % (32.4-45.2); HEMOGLOBIN 8.2 GM/dL (10.7-15.3); LYMPH % 18.1 % (8-40); MCH 30.8 pg (25.7-33.7); MCHC 33.7 g/dl (32.0-36.0); MEAN CELL VOLUME 91.6 fl (80-96); MEAN PLT VOLUME 8.7 fl (7.5-11.1); MONO % 9.5 % (3.8-10.2); NEUT % 72.1 % (42.8-82.8); PLATELET COUNT 164 K/MM3 (134-434); RBC 2.65 M/mm3 (3.60-5.2); RDW 19.5 % (11.6-15.6); WHITE BLOOD COUNT 5.4 K/mm3 (4.0-10.0)
--- NOTE | 2018-12-31 14:49 | CONS ---
DATE OF CONSULTATION: 12/31/2018 REFERRING PHYSICIAN: Paulette Puckett MD HISTORY OF PRESENT ILLNESS: The patient is a 73-year-old black female with a past medical history of multiple myeloma, amyloidosis, currently on chemotherapy, last treatment 1 day prior to admission, ASHD, status post NSTEMI, status post stent on December 23, 2018, at [facility], hyperlipidemia, congestive heart failure with left ventricular ejection fraction of 45%, hypertension, paroxysmal atrial fibrillation, history of GI bleed, symptomatic anemia, admitted to [facility] with acute onset of shortness of breath. Patient was recently discharged from [facility]. Apparently for the past 3 weeks started noticing increasing shortness of breath and dyspnea on exertion as well as orthopnea requiring her to sleep in a recliner. On the day of admission she woke up acutely short of breath at which time EMS was called. EMS administered 1 sublingual nitroglycerin and placed the patient on BiPAP. Patient in the ER was given Lasix. She underwent a CTA which was negative for PE. A chest x-ray revealed consistent with CHF and her BNP was noted to be markedly elevated, above 24,000. She was transferred up to the telemetry unit for further treatment. PAST MEDICAL HISTORY: Again includes ASHD, status post non-ST GA, status post drug-eluting stent in December, history of GI bleed, symptomatic anemia, multiple myeloma, amyloidosis, on chemotherapy, received Velcade, Cytoxan and dexamethasone the day prior to admission, LV systolic dysfunction with left ventricular ejection fraction approximately 45%, pulmonary hypertension, paroxysmal atrial fibrillation, cardiomyopathy. SOCIAL HISTORY: History of smoking years ago. No occupational exposures. REVIEW OF SYSTEMS: Positive orthopnea. Positive dyspnea. No chest pain. No palpitations. Positive dry cough. No hemoptysis. No fever. No chills. No abdominal pain. Positive lower extremity edema. CURRENT MEDICATIONS: Include heparin subcutaneous b.i.d., Zyloprim, Mepron, Duo-Neb, Toprol, Lasix drip, aspirin, Plavix, Protonix, Synthroid. PHYSICAL EXAMINATION: General: The patient is a well-developed, well-nourished female, awake, alert, comfortable, currently in no acute distress. Vital Signs: She is afebrile, blood pressure is 95/48, respiratory rate is 18, O2 saturation is 96%. HEENT: Normocephalic, atraumatic. Neck: Supple. Heart: Regular, S1, S2. Chest: A few bibasilar crackles. Abdomen: Soft. Bowel sounds are positive. Extremities: Bilateral lower extremity edema. LABORATORIES: BUN 29, creatinine 1.2. WBC is 5.6, hemoglobin 7.9, hematocrit 23.5 with a platelet count of 175,000. There are 73 polys, 16 lymphs and 10 monos. INR is 1.18. D-dimer is 1551. Positive troponin. Venous Blood Gas: 7.42, PCO2 of 35, PO2 of 19. UA: Protein 3+, 1+ heme, 2+ urobilinogen. Chest CT: No evidence of pulmonary emboli. Bibasilar consolidations and effusions most likely secondary to compressive atelectasis. IMPRESSION: 1. Acute respiratory failure likely secondary to acute on chronic congestive heart failure. 2. Cardiomyopathy with reduced left ventricular ejection fraction. 3. Atherosclerotic heart disease, status post recent [id number] myocardial infarction, status post drug-eluting stent in December 2018. 3. History of myeloma, amyloidosis, on chemotherapy, last treatment 1 day prior to admission. 4. Hypertension. 5. History of symptomatic anemia. 6. History of gastrointestinal bleed. PLAN: IV Lasix. Supplemental O2. NIPPV as needed. Followup chest x-rays. Daily weights. Monitor electrolytes. Monitor hemoglobin and hematocrit. Normal transfusion threshold. Also trend troponin. Thank you. Will follow closely with you. ROSSANA GREY M.D. RADHA/[id number]
--- NOTE | 2018-12-31 15:55 | CONSULT ---
Consult Consult Specialty:: Nephrology Reason for Consultation:: ckd and proteinuria - History of Present Illness Chief Complaint: shortness of breath History of Present Illness: Pt is a 73 year old female with pmhx of ckd, multiple myeloma, amyloid, cad, a- fib, chf and cad with recent cardiac stent on 12/23/18. She presents with acute shortness of shortness of breath. She was admitted for workup. She had a ct angio that was negative for PE. I was called to evaluate her for proteinuria and ckd. She complains of lower ext edema. She says that she was not discharged on lasix from the previous hospital after she had the stent. She denies dysuria or hematuria. - History Source History Provided By: Patient - Past Medical History Cardio/Vascular: Yes: CAD (s/p HOLLY D1 this month after NSTEMI), CHF (Chronic systolic CHF, mildly reduced LV function with EF 45%), HTN, Hyperlipdemia Pulmonary: Yes: Asthma Gastrointestinal: Yes: Other (hiatal hernia; rectal polyp) Renal/: Yes: Renal Inusuff, Other (proteinuria) Psych: Yes: Depression Endocrine: Yes: Hypothyroidism - Past Surgical History Past Surgical History: Yes: Breast Biopsy (right for cysts), Hernia Repair ( laparoscopic hiatal), Hysterectomy, Tubal Ligation - Alcohol/Substance Use Hx Alcohol Use: No History of Substance Use: reports: None - Smoking History Smoking history: Unknown if ever smoked Have you smoked in the past 12 months: No Aproximately how many cigarettes per day: 0 If you are a former smoker, when did you quit?: 1987 - Social History ADL: Independent History of Recent Travel: No Home Medications - Allergies Allergies/Adverse Reactions: Allergies Allergy/AdvReac Type Severity Reaction Status Date / Time Penicillins Allergy Severe Rash Verified 12/30/18 05:05 - Home Medications Home Medications: Ambulatory Orders Gabapentin 300 mg PO DAILY 06/14/13 Diltiazem Cd [Cardizem Cd -] 240 mg PO DAILY 10/11/18 Bazine-3/Dha/Epa/Fish Oil [Bazine 3 500 Softgel] 1 each PO DAILY 10/11/18 Allopurinol [Zyloprim -] 300 mg PO DAILY #30 tablet 11/09/18 Levothyroxine [Synthroid -] 50 mcg PO DAILY@0700 #30 tablet 11/09/18 Pantoprazole Sodium [Protonix -] 40 mg PO DAILY #30 tablet.ec 11/09/18 Atovaquone 1,500 mg PO DAILY #300 ml 11/10/18 Aspirin [ASA -] 81 mg PO DAILY 12/30/18 Family Disease History - Family Disease History Family Disease History: [place]: Daughter (1 passed at 14yo of Hodgkin's lymphoma; 1 passed at 48 of lupus), Other: Daughter Review of Systems - Review of Systems Constitutional: reports: Loss of Appetite, Weakness. denies: Chills, Fever Eyes: reports: No Symptoms HENT: reports: No Symptoms Neck: reports: No Symptoms Cardiovascular: reports: Edema, Shortness of Breath Respiratory: reports: SOB, SOB on Exertion Gastrointestinal: reports: No Symptoms Genitourinary: reports: No Symptoms Musculoskeletal: reports: No Symptoms Integumentary: reports: No Symptoms Neurological: reports: No Symptoms Endocrine: reports: No Symptoms Hematology/Lymphatic: reports: No Symptoms Psychiatric: reports: No Symptoms Physical Exam Vital Signs: Vital Signs Temperature 98.2 F 12/31/18 14:00 Pulse Rate 94 H 12/31/18 14:00 Respiratory Rate 18 12/31/18 14:00 Blood Pressure 97/51 L 12/31/18 14:00 O2 Sat by Pulse Oximetry (%) 96 12/31/18 08:08 Constitutional: Yes: Calm Eyes: Yes: Conjunctiva Clear HENT: Yes: Atraumatic Cardiovascular: Yes: S1, S2 Respiratory: Yes: On Nasal O2 Gastrointestinal: Yes: Normal Bowel Sounds, Soft Renal/: Yes: Cabrera Present Musculoskeletal: Yes: WNL Edema: Yes Edema: LLE: 3+, RLE: 3+ Neurological: Yes: Oriented Psychiatric: Yes: Oriented Labs: CBC, BMP 12/31/18 13:40 12/31/18 05:30 Laboratory Tests 12/30/18 12/30/18 12/30/18 05:15 06:38 06:50 Hgb Creatinine 1.2 Urine Protein 3+ H Urine Blood 1+ H Stool Occult Blood Negative 12/31/18 12/31/18 05:30 13:40 Hgb 8.2 L Creatinine 1.2 Urine Protein Urine Blood Stool Occult Blood Imaging - Results Cat Scan: Report Reviewed Problem List - Problems (1) CKD (chronic kidney disease) Code(s): N18.9 - CHRONIC KIDNEY DISEASE, UNSPECIFIED (2) Acute exacerbation of CHF (congestive heart failure) Code(s): I50.9 - HEART FAILURE, UNSPECIFIED Assessment/Plan Current Medications Generic Name Dose Route Start Last Admin Trade Name Edgar PRN Reason Stop Dose Admin Albuterol/Ipratropium 1 amp 12/30/18 13:39 12/30/18 20:30 Duoneb - NEB 1 amp Q6H PRN Administration SHORTNESS OF BREATH Allopurinol 300 mg 12/30/18 13:45 12/31/18 10:00 Zyloprim - PO 300 mg DAILY [facility]O Administration Aspirin 81 mg 12/30/18 14:00 12/31/18 10:00 Asa - PO 81 mg DAILY [facility] Administration Atorvastatin Calcium 40 mg 12/30/18 22:00 12/30/18 21:56 Lipitor - PO 40 mg HS [facility] Administration Atovaquone 1,500 mg 12/31/18 08:00 12/31/18 09:57 Mepron - PO 1,500 mg 0800 [facility] Administration Clopidogrel Bisulfate 75 mg 12/31/18 10:00 12/31/18 10:00 Plavix - PO 75 mg DAILY [facility] Administration Heparin Sodium (Porcine) 5,000 unit 12/30/18 22:00 12/31/18 10:00 Heparin - SQ 5,000 unit BID [facility] Administration Furosemide 100 mg/ Sodium 100 mls @ 5 mls/hr 12/31/18 09:00 Chloride IVPB 01/02/19 23:59 ASDIR [facility] Protocol Levothyroxine Sodium 50 mcg 12/31/18 07:00 12/31/18 06:50 Synthroid - PO 50 mcg DAILY@0700 [facility] Administration Metoprolol Succinate 12.5 mg 12/31/18 10:00 12/31/18 10:00 Toprol Xl - PO 12.5 mg DAILY [facility] Administration Pantoprazole Sodium 40 mg 12/30/18 13:45 12/31/18 10:00 Protonix - PO 40 mg DAILY [facility] Administration Impression 1. proteinuria 2. multiple myeloma 3. amyloid 4. fluid overload 5. hypotension 6. HLD 7. hypothyroidism 8. anemia 9. CKD Plan - check prt to [employer] member ratio - cont with lasix - unable to start arb as pt is hypotensive - low albumin will contribute to lower ext edema - can keep on lasix drip for now - myeloma and amyloid can explain proteinuria
[2018-12-31] MEDS: ATORVASTATIN CA 40 MG TABLET (FP) PO SCH (21:37)
[2019-01-01] MEDS: LEVOTHYROXINE NA 50 MCG TABLET (FP) PO SCH (06:09)
--- NOTE | 2019-01-01 08:34 | PN ---
Progress Note (short form) - Note Progress Note: Coverage for Dr. Ijeoma Ordonez Chief Complaint: Events noted, notes reviewed, dyspnea persists but improved, denies any chest pain, remains on Lasix drip History of Present Illness: Seen and examined on telemetry. Events noted, notes reviewed, dyspnea persists but improved, denies any chest pain, remains on Lasix drip Echocardiography report noted low normal LVEF 50%, mild MR, AI and TR - Current Medication List Current Medications: Current Medications Albuterol/Ipratropium (Duoneb -) 1 amp NEB Q6H PRN PRN Reason: SHORTNESS OF BREATH Last Admin: 12/30/18 20:30 Dose: 1 amp Allopurinol (Zyloprim -) 300 mg PO DAILY [facility] Last Admin: 12/31/18 10:00 Dose: 300 mg Aspirin (Asa -) 81 mg PO DAILY [facility] Last Admin: 12/31/18 10:00 Dose: 81 mg Atorvastatin Calcium (Lipitor -) 40 mg PO HS [facility] Last Admin: 12/31/18 21:37 Dose: 40 mg Atovaquone (Mepron -) 1,500 mg PO 0800 [facility] Last Admin: 12/31/18 09:57 Dose: 1,500 mg Clopidogrel Bisulfate (Plavix -) 75 mg PO DAILY [facility] Last Admin: 12/31/18 10:00 Dose: 75 mg Heparin Sodium (Porcine) (Heparin -) 5,000 unit SQ BID [facility] Last Admin: 12/31/18 21:29 Dose: 5,000 unit Furosemide 100 mg/ Sodium (Chloride) 100 mls @ 5 mls/hr IVPB ASDIR [facility]; Protocol Stop: 01/02/19 23:59 Levothyroxine Sodium (Synthroid -) 50 mcg PO DAILY@0700 [facility] Last Admin: 01/01/19 06:09 Dose: 50 mcg Metoprolol Succinate (Toprol Xl -) 12.5 mg PO DAILY [facility] Last Admin: 12/31/18 10:00 Dose: 12.5 mg Pantoprazole Sodium (Protonix -) 40 mg PO DAILY [facility] Last Admin: 12/31/18 10:00 Dose: 40 mg Review of Systems Cardiovascular: As noted above Respiratory: denies: denies: Cough or Sputum Production Gastrointestinal: denies: Nausea, Vomiting, Diarrhea, Constipation or Abdominal Discomfort Musculoskeletal: No Symptoms Reported Endocrine: No Symptoms Reported - Objective Vital Signs: Last Vital Signs Temp Pulse Resp BP Pulse Ox 98.5 F 90 20 105/61 98 01/01/19 05:04 01/01/19 05:04 01/01/19 05:04 01/01/19 05:04 12/31/18 21:00 Intake & Output 12/29/18 12/30/18 12/31/18 01/01/19 23:59 23:59 23:59 23:59 Intake Total 400 110 Output Total 475 1400 1800 Balance -475 1000 -1690 Weight 168 lb 157 lb 3.2 oz Constitutional: No Distress Neck: Supple Negative JVD No Bruit Cardiovascular: S1 S2 Regular Rate Rhythm Respiratory: Diminished Breath Sounds Bilaterally Basal Rales Gastrointestinal: Soft Benign Normal Bowel Sounds Ext: No Edema Labs: CBC, BMP 01/01/19 06:00 01/01/19 06:00 Troponin, BNP 12/31/18 13:40 Troponin I 0.37 H Hepatic Panel Total Bilirubin 0.4 mg/dL (0.2-1) 12/31/18 05:30 AST 15 U/L (15-37) 12/31/18 05:30 ALT 22 U/L (13-61) 12/31/18 05:30 Alkaline Phosphatase 52 U/L (45-117) 12/31/18 05:30 Albumin 1.6 g/dl (3.4-5.0) L 12/31/18 05:30 Assessment/Plan ASSESSMENT: 1. Acute on chronic class II-III NYHA classification systolic LV failure, resolving 2. 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 CAD post recent NSTEMI post HOLLY-LAD-D1 angina pectoris 4. Hypotension 5. Hypothyroidism 6. Multiple myeloma on chemotherapy 7. Chronic Anemia PLAN: 1. Continue ASA and Plavix with caution and close monitoring of CBC, transfuse to maintain Hg > 8.0 2. Continue Toprol XL with caution, hemodnamics permitting 3. Add ACEI or ARBS with caution, hemodnamics permitting and with close monitoring of renal function 4. Continue Lasix drip for an additional 24 hours, with close monitoring of renal function Katty Manriquez MD
[2019-01-01 08:51] LABS: BASO % 0.5 % (0-2.0); EOS % 0.2 % (0-4.5); HEMATOCRIT 23.8 % (32.4-45.2); MCH 30.9 pg (25.7-33.7); MCHC 33.6 g/dl (32.0-36.0); MEAN CELL VOLUME 91.8 fl (80-96); MONO % 13.6 % (3.8-10.2); NEUT % 59.7 % (42.8-82.8); PLATELET COUNT 158 K/MM3 (134-434); RDW 19.5 % (11.6-15.6); WHITE BLOOD COUNT 4.7 K/mm3 (4.0-10.0)
[2019-01-01 09:26] LABS: ALBUMIN 1.6 g/dl (3.4-5.0); ALK PHOS 60 U/L (45-117); ANION GAP 10 MMOL/L (8-16); BILIRUBIN,TOTAL 0.4 mg/dL (0.2-1); BLOOD UREA NITROGEN 30 mg/dL (7-18); CALCIUM 8.2 mg/dL (8.5-10.1); CHLORIDE 108 mmol/L (98-107); CO2 24 mmol/L (21-32); CREATININE 1.2 mg/dL (0.55-1.3); GLUCOSE,RANDOM 77 mg/dL (74-106); MAGNESIUM 2.2 mg/dL (1.8-2.4); POTASSIUM 3.6 mmol/L (3.5-5.1); SGOT/AST 14 U/L (15-37); SGPT/ALT 15 U/L (13-61); SODIUM 142 mmol/L (136-145); TOT PROT 7.1 g/dl (6.4-8.2)
[2019-01-01] MEDS: ALLOPURINOL 300 MG TABLET (FP) PO SCH (10:20)
[2019-01-01] MEDS: PANTOPRAZOLE 40 MG TABLET (FP) PO SCH (10:20)
[2019-01-01] MEDS: metoPROLOL SUCCINATE 25 MG TAB.SR.24H (FP) PO SCH (10:20)
[2019-01-01] MEDS: ASPIRIN 81 MG CHEWABLE TABLETS PO SCH (10:27)
[2019-01-01] MEDS: CLOPIDOGREL BISULFATE 75 MG TABLET (FP) PO SCH (10:27)
[2019-01-01] MEDS: HEPARIN NA (PORCINE) 5,000 UNITS/ML 1ML VIAL SQ SCH ×2 (10:27→21:01)
[2019-01-01] MEDS ORDERED: PT OWN MED DRAWER 7, Y5N ONE (10:30)
[2019-01-01] MEDS: ATOVAQUONE 750 MG/5 ML (UNIT-DOSE PACKAGING) PO SCH (10:34)
--- NOTE | 2019-01-01 11:50 | PN ---
Progress Note (short form) - Note Progress Note: ID consult dictated imp/reccd 73 yo female with CAD, multiple myeloma s/p stent at [facility] admitted with acute SOB (one hour)-CHF started on lasix with improvement chest cta no PE BNP 24k +lower extremity edema higgins placed in ER for monitoring urine output no urinary symptoms no fevers urine culture coag negative staph and VRE suspect this is asymptomatic bacteriuria - multiple organisms, no symptoms no need to treat contact isolation d/c higgins - d/w dr rothman cardiology- strict daily weight BRB per rectum- GI consult, stat CBC< PMD aware- spoke to RN Problem List - Problems (1) Acute exacerbation of CHF (congestive heart failure) Code(s): I50.9 - HEART FAILURE, UNSPECIFIED (2) Asymptomatic bacteriuria Code(s): R82.71 - BACTERIURIA (3) Multiple myeloma Code(s): C90.00 - MULTIPLE MYELOMA NOT HAVING ACHIEVED REMISSION
--- NOTE | 2019-01-01 12:16 | PN ---
Progress Note (short form) - Note Progress Note: Breathing feels better. No CP. Afebrile. Intake & Output 12/29/18 12/30/18 12/31/18 01/01/19 23:59 23:59 23:59 23:59 Intake Total 400 110 Output Total 475 1400 1800 Balance -188 -1954 -4692 Weight 168 lb 157 lb 3.2 oz Last Vital Signs Temp Pulse Resp BP Pulse Ox 98.5 F 90 20 105/61 98 01/01/19 05:04 01/01/19 05:04 01/01/19 05:04 01/01/19 05:04 12/31/18 21:00 Active Medications Albuterol/Ipratropium (Duoneb -) 1 amp NEB Q6H PRN PRN Reason: SHORTNESS OF BREATH Last Admin: 12/30/18 20:30 Dose: 1 amp Allopurinol (Zyloprim -) 300 mg PO DAILY [facility] Last Admin: 01/01/19 10:20 Dose: 300 mg Aspirin (Asa -) 81 mg PO DAILY [facility] Last Admin: 01/01/19 10:27 Dose: Not Given Atorvastatin Calcium (Lipitor -) 40 mg PO HS [facility] Last Admin: 12/31/18 21:37 Dose: 40 mg Atovaquone (Mepron -) 1,500 mg PO 0800 [facility] Last Admin: 01/01/19 10:34 Dose: 1,500 mg Clopidogrel Bisulfate (Plavix -) 75 mg PO DAILY [facility] Last Admin: 01/01/19 10:27 Dose: Not Given Heparin Sodium (Porcine) (Heparin -) 5,000 unit SQ BID [facility] Last Admin: 01/01/19 10:27 Dose: Not Given Furosemide 100 mg/ Sodium (Chloride) 100 mls @ 5 mls/hr IVPB ASDIR [facility]; Protocol Stop: 01/02/19 23:59 Levothyroxine Sodium (Synthroid -) 50 mcg PO DAILY@0700 [facility] Last Admin: 01/01/19 06:09 Dose: 50 mcg Metoprolol Succinate (Toprol Xl -) 12.5 mg PO DAILY [facility] Last Admin: 01/01/19 10:20 Dose: 12.5 mg Pantoprazole Sodium (Protonix -) 40 mg PO DAILY [facility] Last Admin: 01/01/19 10:20 Dose: 40 mg Constitutional: No Distress Neck: Supple Negative JVD No Bruit Cardiovascular: S1 S2 Regular Rate Rhythm Respiratory: Bibasilar Rales Gastrointestinal: Soft Benign Normal Bowel Sounds Ext: No Edema Laboratory Results - last 24 hr 12/31/18 12/31/18 01/01/19 13:40 13:40 06:00 WBC 5.4 RBC 2.65 L Hgb 8.2 L Hct 24.3 L MCV 91.6 MCH 30.8 MCHC 33.7 RDW 19.5 H Plt Count 164 MPV 8.7 Absolute Neuts (auto) 3.9 Neutrophils % 72.1 Lymphocytes % 18.1 Monocytes % 9.5 Eosinophils % 0.1 D Basophils % 0.2 Nucleated RBC % 0 Sodium 142 Potassium 3.6 Chloride 108 H Carbon Dioxide 24 Anion Gap 10 BUN 30 H Creatinine 1.2 Creat Clearance w eGFR 43.91 Random Glucose 77 Calcium 8.2 L Magnesium 2.2 Total Bilirubin 0.4 AST 14 L ALT 15 Alkaline Phosphatase 60 Creatine Kinase 90 Troponin I 0.37 H Total Protein 7.1 Albumin 1.6 L 01/01/19 06:00 WBC 4.7 RBC 2.60 L Hgb 8.0 L Hct 23.8 L MCV 91.8 MCH 30.9 MCHC 33.6 RDW 19.5 H Plt Count 158 MPV 9.0 Absolute Neuts (auto) 2.8 Neutrophils % 59.7 Lymphocytes % 26.0 D Monocytes % 13.6 H Eosinophils % 0.2 D Basophils % 0.5 Nucleated RBC % 0 Sodium Potassium Chloride Carbon Dioxide Anion Gap BUN Creatinine Creat Clearance w eGFR Random Glucose Calcium Magnesium Total Bilirubin AST ALT Alkaline Phosphatase Creatine Kinase Troponin I Total Protein Albumin Problem List - Problems (1) Acute exacerbation of CHF (congestive heart failure) Code(s): I50.9 - HEART FAILURE, UNSPECIFIED (2) Acute on chronic systolic CHF (congestive heart failure) Code(s): I50.23 - ACUTE ON CHRONIC SYSTOLIC (CONGESTIVE) HEART FAILURE (3) Anemia Code(s): D64.9 - ANEMIA, UNSPECIFIED Qualifiers: Chronic kidney disease stage: unspecified stage (4) CAD (coronary artery disease) Code(s): I25.10 - ATHSCL HEART DISEASE OF [place] CORONARY ARTERY W/O ANG PCTRS Qualifiers: Coronary Disease-Associated Artery/Lesion type: [place] artery Associated angina: without angina (5) Elevated troponin Code(s): R74.8 - ABNORMAL LEVELS OF OTHER SERUM ENZYMES (6) Multiple myeloma Code(s): C90.00 - MULTIPLE MYELOMA NOT HAVING ACHIEVED REMISSION Qualifiers: Multiple myeloma remission status: not in remission Qualified Code(s): C90.00 - Multiple myeloma not having achieved remission (7) Respiratory insufficiency Code(s): R06.89 - OTHER ABNORMALITIES OF BREATHING (8) HLD (hyperlipidemia) Code(s): E78.5 - HYPERLIPIDEMIA, UNSPECIFIED Qualifiers: Hyperlipidemia type: unspecified Qualified Code(s): E78.5 - Hyperlipidemia , unspecified (9) HTN (hypertension) Code(s): I10 - ESSENTIAL (PRIMARY) HYPERTENSION Qualifiers: Hypertension type: essential hypertension Qualified Code(s): I10 - Essential (primary) hypertension (10) PAF (paroxysmal atrial fibrillation) Code(s): I48.0 - PAROXYSMAL ATRIAL FIBRILLATION (11) Multiple myeloma Code(s): C90.00 - MULTIPLE MYELOMA NOT HAVING ACHIEVED REMISSION (12) PHT (pulmonary hypertension) Code(s): I27.20 - PULMONARY HYPERTENSION, UNSPECIFIED (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 IMP ACUTE ON CHRONIC CHF CARDIOMYOPATHY ASHD S/P NSTEMI,S/P HOLLY STENT 12/21 MYELOMA /AMYLOIDOSIS ON CHEMO PULMONARY HTN ANEMIA H/O GI BLEED +TROPONIN PLAN IV LASIX O2 NEEDED DAILY WT MONITOR LYTES MONITOR H+H NORMAL TRANSFUSION THRESHOLD DR FRANKEL
[2019-01-01 13:33] LABS: HEMATOCRIT 26.8 % (32.4-45.2); HEMOGLOBIN 8.9 GM/dL (10.7-15.3); MCH 30.8 pg (25.7-33.7); MCHC 33.3 g/dl (32.0-36.0); MEAN CELL VOLUME 92.5 fl (80-96); MEAN PLT VOLUME 8.9 fl (7.5-11.1); PLATELET COUNT 165 K/MM3 (134-434); RDW 19.9 % (11.6-15.6); WHITE BLOOD COUNT 5.5 K/mm3 (4.0-10.0)
--- NOTE | 2019-01-01 13:42 | CONS ---
DATE OF CONSULTATION: DATE OF DICTATION: 01/01/2019 This is a 71-year-old woman with a known history of coronary artery disease status post recent stent placement at [facility]. She also has a history of multiple myeloma. She was admitted on the with acute onset of shortness of breath for 1 hour. She had a CTA done and there were no signs of PE. She was felt to be in heart failure. She was noted to have lower extremity edema as well. She was started on Lasix with improvement. A Cabrera catheter was placed to monitor urine output. A UA and urine culture were sent. The urine culture is growing Staphylococcus epidermidis and VRE, and I am asked to comment. She has no urinary complaint. She does note this morning that she had some bright red blood per rectum. She reports her breathing is improving. She has had no fevers or chills and otherwise feels well. PAST MEDICAL HISTORY: Notable for myeloma, amyloidosis. She had a recent admission for anemia and GI bleed, and she ended up having a stent done. She has a history as well of CHF, asthma, hiatal hernia, rectal polyp, renal insufficiency, multiple myeloma on chemotherapy, depression, hypothyroidism. She is status post breast biopsy, hernia repair, hysterectomy, and tubal ligation. She has a history of pulmonary hypertension as well. ALLERGIES: She is allergic to PENICILLIN, which gives her a rash. MEDICATIONS: Her medications at home include aspirin, Protonix, omega 3, Synthroid, gabapentin, Cardizem, , allopurinol, and she is apparently on Plavix as well. SOCIAL HISTORY: She quit smoking many, many years ago. There is no history of any recent travel. FAMILY HISTORY: Notable for Hodgkin's lymphoma and lupus. Apparently while at [facility] she had a colonoscopy December 21 that showed a rectal polyp, and she was treated with Cipro for 3 days for a UTI. PHYSICAL EXAMINATION: General: She is awake and alert. She is out of bed in a chair. Vital Signs: She is afebrile. Temperature is 98.5, pulse of 90, blood pressure 105/61, respiratory rate is 20. She is saturating 98% on 2 L. HEENT: She is normocephalic. Her eyes are anicteric Neck: Supple. Lungs: Clear to auscultation. She has diminished breath sounds at the bases. Heart: Regular rate and rhythm. Abdomen: Soft, nontender. Extremities: Notable for 2+ edema. LABORATORY: Her white count is pending. This morning was 4.7, hemoglobin 8. Platelets are 158. Chemistries are notable for BUN and creatinine of 30 and 1.2. Normal LFTs, and urine culture is growing both staph coagulase negative as well as VRE. SUMMARY: 1. This is a 73-year-old woman with myeloma and coronary artery disease, admitted with congestive heart failure, improving with diuresis, who was found to have asymptomatic bacteriuria on routine urinalysis, on routine culture placed after Cabrera catheter was placed. She has 2 organisms that make it more likely that this is not true infection. Would place her in contact isolation and would discontinue her Cabrera. Discussed this with Dr. Robbins, who is agreeable. She will need strict daily weights. 2. Bright red blood per rectum. Apparently she had a rectal polyp after recent colonoscopy at [facility]. Stat CBC has been ordered, and her PMD is aware. I spoke to the nurse, and GI consult has been ordered. KEYONA ANAYA M.D. [id number]
--- NOTE | 2019-01-01 14:37 | PN ---
Progress Note (short form) - Note Progress Note: Patient seen in follow up. Reports breathing significantly improved. Reports noting blood with her last bowel movement. Inpatient Meds reviewed. Current Medications Generic Name Dose Route Start Last Admin Trade Name Freq PRN Reason Stop Dose Admin Albuterol/Ipratropium 1 amp 12/30/18 13:39 12/30/18 20:30 Duoneb - NEB 1 amp Q6H PRN Administration SHORTNESS OF BREATH Allopurinol 300 mg 12/30/18 13:45 01/01/19 10:20 Zyloprim - PO 300 mg DAILY [facility] Administration Aspirin 81 mg 12/30/18 14:00 01/01/19 10:27 Asa - PO Not Given DAILY [facility] Atorvastatin Calcium 40 mg 12/30/18 22:00 12/31/18 21:37 Lipitor - PO 40 mg HS [facility] Administration Atovaquone 1,500 mg 12/31/18 08:00 01/01/19 10:34 Mepron - PO 1,500 mg 0800 [facility] Administration Clopidogrel Bisulfate 75 mg 12/31/18 10:00 01/01/19 10:27 Plavix - PO Not Given DAILY [facility] Heparin Sodium (Porcine) 5,000 unit 12/30/18 22:00 01/01/19 10:27 Heparin - SQ Not Given BID [facility] Furosemide 100 mg/ Sodium 100 mls @ 5 mls/hr 12/31/18 09:00 Chloride IVPB 01/02/19 23:59 ASDIR [facility] Protocol Levothyroxine Sodium 50 mcg 12/31/18 07:00 01/01/19 06:09 Synthroid - PO 50 mcg DAILY@0700 [facility] Administration Metoprolol Succinate 12.5 mg 12/31/18 10:00 01/01/19 10:20 Toprol Xl - PO 12.5 mg DAILY [facility] Administration Pantoprazole Sodium 40 mg 12/30/18 13:45 01/01/19 10:20 Protonix - PO 40 mg DAILY [facility] Administration On Examination: Last Vital Signs Temp Pulse Resp BP Pulse Ox 98.5 F 90 20 105/61 98 01/01/19 05:04 01/01/19 05:04 01/01/19 05:04 01/01/19 05:04 12/31/18 21:00 General: In no acute distress, sitting in chair. Extremities: No pallor or icterus. No pedal edema. No palpable lymphadenopathy. CVS: S1, S2, regular, no gallop or murmur. Chest: good air entry bilaterally, clear Abdomen: Non-distended, non-tender, no palpable organomegaly. Neuro: Alert, oriented, non-focal. Labs: CBC, BMP 01/01/19 12:45 01/01/19 06:00 Assessment. IgA myeloma, with anemia and proteinuria (normal creatinine). Currently receiving Velcade/Cytoxan/Dex - last dose few days ago. Presented with dyspnea attributed to fluid overload/CHF, now improved with diuresis. Cardiology following - reported non-ischemic DCM - (EF 50%, and recent stenting at [facility]- ?) Ongoing diuresis recommended Recently worked up for GI bleed - recent colonoscopy showing only a polyp - removed. Unclear significance of her report now again of blood per rectum this morning - will monitor. .
[2019-01-01] MEDS ORDERED: POTASSIUM CHLORIDE TABS 20 MEQ TABLET.ER (FP) PO ONE (15:12)
--- NOTE | 2019-01-01 15:12 | PN ---
Progress Note, Physician History of Present Illness: Pt seen and examined at bedside. She is awake and alert. She still complains of lower ext edema. She is out of bed to chair. - Current Medication List Current Medications: Active Medications Albuterol/Ipratropium (Duoneb -) 1 amp NEB Q6H PRN PRN Reason: SHORTNESS OF BREATH Last Admin: 12/30/18 20:30 Dose: 1 amp Allopurinol (Zyloprim -) 300 mg PO DAILY [facility] Last Admin: 01/01/19 10:20 Dose: 300 mg Aspirin (Asa -) 81 mg PO DAILY [facility] Last Admin: 01/01/19 10:27 Dose: Not Given Atorvastatin Calcium (Lipitor -) 40 mg PO HS [facility] Last Admin: 12/31/18 21:37 Dose: 40 mg Atovaquone (Mepron -) 1,500 mg PO 0800 [facility] Last Admin: 01/01/19 10:34 Dose: 1,500 mg Clopidogrel Bisulfate (Plavix -) 75 mg PO DAILY [facility] Last Admin: 01/01/19 10:27 Dose: Not Given Heparin Sodium (Porcine) (Heparin -) 5,000 unit SQ BID [facility] Last Admin: 01/01/19 10:27 Dose: Not Given Furosemide 100 mg/ Sodium (Chloride) 100 mls @ 5 mls/hr IVPB ASDIR [facility]; Protocol Stop: 01/02/19 23:59 Levothyroxine Sodium (Synthroid -) 50 mcg PO DAILY@0700 [facility] Last Admin: 01/01/19 06:09 Dose: 50 mcg Metoprolol Succinate (Toprol Xl -) 12.5 mg PO DAILY [facility] Last Admin: 01/01/19 10:20 Dose: 12.5 mg Pantoprazole Sodium (Protonix -) 40 mg PO DAILY [facility] Last Admin: 01/01/19 10:20 Dose: 40 mg - Objective Vital Signs: Vital Signs Temperature 98.5 F 01/01/19 05:04 Pulse Rate 90 01/01/19 05:04 Respiratory Rate 20 01/01/19 05:04 Blood Pressure 105/61 01/01/19 05:04 O2 Sat by Pulse Oximetry (%) 98 12/31/18 21:00 Constitutional: Yes: Calm Eyes: Yes: Conjunctiva Clear HENT: Yes: Atraumatic Neck: Yes: Supple Cardiovascular: Yes: S1, S2 Respiratory: Yes: On Nasal O2, Rhonchi Gastrointestinal: Yes: Soft Genitourinary: Yes: Cabrera Present Edema: Yes Edema: LLE: 3+, RLE: 3+ Neurological: Yes: Oriented Psychiatric: Yes: Oriented Labs: CBC, BMP 01/01/19 12:45 01/01/19 06:00 INR, PTT INR 1.18 (0.83-1.09) H 12/30/18 05:15 Problem List - Problems (1) CKD (chronic kidney disease) Code(s): N18.9 - CHRONIC KIDNEY DISEASE, UNSPECIFIED (2) Acute exacerbation of CHF (congestive heart failure) Code(s): I50.9 - HEART FAILURE, UNSPECIFIED Assessment/Plan Current Medications Generic Name Dose Route Start Last Admin Trade Name Freq PRN Reason Stop Dose Admin Albuterol/Ipratropium 1 amp 12/30/18 13:39 12/30/18 20:30 Duoneb - NEB 1 amp Q6H PRN Administration SHORTNESS OF BREATH Allopurinol 300 mg 12/30/18 13:45 01/01/19 10:20 Zyloprim - PO 300 mg DAILY [facility] Administration Aspirin 81 mg 12/30/18 14:00 01/01/19 10:27 Asa - PO Not Given DAILY [facility] Atorvastatin Calcium 40 mg 12/30/18 22:00 12/31/18 21:37 Lipitor - PO 40 mg HS [facility] Administration Atovaquone 1,500 mg 12/31/18 08:00 01/01/19 10:34 Mepron - PO 1,500 mg 0800 [facility] Administration Clopidogrel Bisulfate 75 mg 12/31/18 10:00 01/01/19 10:27 Plavix - PO Not Given DAILY [facility] Heparin Sodium (Porcine) 5,000 unit 12/30/18 22:00 01/01/19 10:27 Heparin - SQ Not Given BID [facility] Furosemide 100 mg/ Sodium 100 mls @ 5 mls/hr 12/31/18 09:00 Chloride IVPB 01/02/19 23:59 ASDIR [facility] Protocol Levothyroxine Sodium 50 mcg 12/31/18 07:00 01/01/19 06:09 Synthroid - PO 50 mcg DAILY@0700 [facility] Administration Metoprolol Succinate 12.5 mg 12/31/18 10:00 01/01/19 10:20 Toprol Xl - PO 12.5 mg DAILY [facility] Administration Pantoprazole Sodium 40 mg 12/30/18 13:45 01/01/19 10:20 Protonix - PO 40 mg DAILY [facility] Administration Impression 1. proteinuria 2. multiple myeloma 3. amyloid 4. fluid overload 5. hypotension 6. HLD 7. hypothyroidism 8. anemia 9. CKD Plan - cont lasix - bp improving but still too low to start arb - repeat labs in am - monitor lytes while on lasix - myeloma and amyloid can explain proteinuria
[2019-01-01 19:47] LABS: RATIO URIN PROTEIN/URIN CREAT 3.55 MG/DL
[2019-01-01] MEDS: ALBUTEROL SO4 2.5/IPRATROPIUM 0.5 INH SOL 3 ML VIAL.NEB. NEB PRN (20:52)
[2019-01-01] MEDS: ATORVASTATIN CA 40 MG TABLET (FP) PO SCH (21:01)
--- NOTE | 2019-01-01 22:26 | PN ---
Progress Note, Physician History of Present Illness: Pt w/ rectal bleed today - Current Medication List Current Medications: Active Medications Albuterol/Ipratropium (Duoneb -) 1 amp NEB Q6H PRN PRN Reason: SHORTNESS OF BREATH Last Admin: 01/01/19 20:52 Dose: 1 amp Allopurinol (Zyloprim -) 300 mg PO DAILY [facility] Last Admin: 01/01/19 10:20 Dose: 300 mg Aspirin (Asa -) 81 mg PO DAILY [facility] Last Admin: 01/01/19 10:27 Dose: Not Given Atorvastatin Calcium (Lipitor -) 40 mg PO HS [facility] Last Admin: 01/01/19 21:01 Dose: 40 mg Atovaquone (Mepron -) 1,500 mg PO 0800 [facility] Last Admin: 01/01/19 10:34 Dose: 1,500 mg Clopidogrel Bisulfate (Plavix -) 75 mg PO DAILY [facility] Last Admin: 01/01/19 10:27 Dose: Not Given Heparin Sodium (Porcine) (Heparin -) 5,000 unit SQ BID [facility] Last Admin: 01/01/19 21:01 Dose: 5,000 unit Furosemide 100 mg/ Sodium (Chloride) 100 mls @ 5 mls/hr IVPB ASDIR [facility]; Protocol Stop: 01/02/19 23:59 Levothyroxine Sodium (Synthroid -) 50 mcg PO DAILY@0700 [facility] Last Admin: 01/01/19 06:09 Dose: 50 mcg Metoprolol Succinate (Toprol Xl -) 12.5 mg PO DAILY [facility] Last Admin: 01/01/19 10:20 Dose: 12.5 mg Pantoprazole Sodium (Protonix -) 40 mg PO DAILY [facility] Last Admin: 01/01/19 10:20 Dose: 40 mg - Objective Vital Signs: Vital Signs Temperature 98.4 F 01/01/19 17:00 Pulse Rate 92 H 01/01/19 17:00 Respiratory Rate 20 01/01/19 17:00 Blood Pressure 107/61 01/01/19 17:00 O2 Sat by Pulse Oximetry (%) 95 01/01/19 21:00 Neck: Yes: WNL, Supple Cardiovascular: Yes: WNL, Regular Rate and Rhythm Respiratory: Yes: Rales Gastrointestinal: Yes: WNL, Normal Bowel Sounds, Soft Edema: LLE: 2+, RLE: 2+ Labs: CBC, BMP 01/01/19 12:45 01/01/19 06:00 INR, PTT INR 1.18 (0.83-1.09) H 12/30/18 05:15 Problem List - Problems (1) Acute on chronic systolic CHF (congestive heart failure) Assessment/Plan: Cont IV lasix drip Monitor electrolytes Code(s): I50.23 - ACUTE ON CHRONIC SYSTOLIC (CONGESTIVE) HEART FAILURE (2) Acute respiratory failure Assessment/Plan: Pt still requiring O2 Due to volume overload Cont diuresis and monitor Code(s): J96.00 - ACUTE RESPIRATORY FAILURE, UNSP W HYPOXIA OR HYPERCAPNIA (3) Anemia Assessment/Plan: GI bleed Could be due to rectal polyp Pt had colonoscopy about 2 weeks ago at [facility] and found to have rectal polyp GI consult Repeat CBC Monitor H/H and transfuse as needed Code(s): D64.9 - ANEMIA, UNSPECIFIED Qualifiers: Chronic kidney disease stage: unspecified stage (4) CAD (coronary artery disease) Assessment/Plan: Cont plavix/asa S/P NSTEMI and stent placement Code(s): I25.10 - ATHSCL HEART DISEASE OF [place] CORONARY ARTERY W/O ANG PCTRS Qualifiers: Coronary Disease-Associated Artery/Lesion type: [place] artery Associated angina: without angina (5) CKD (chronic kidney disease) Assessment/Plan: Due to proteinuria/Multiple myeloma/amyloid As per renal Code(s): N18.9 - CHRONIC KIDNEY DISEASE, UNSPECIFIED (6) Multiple myeloma Code(s): C90.00 - MULTIPLE MYELOMA NOT HAVING ACHIEVED REMISSION Qualifiers: Multiple myeloma remission status: not in remission Qualified Code(s): C90.00 - Multiple myeloma not having achieved remission (7) HLD (hyperlipidemia) Assessment/Plan: Cont lipitor Code(s): E78.5 - HYPERLIPIDEMIA, UNSPECIFIED Qualifiers: Hyperlipidemia type: unspecified Qualified Code(s): E78.5 - Hyperlipidemia , unspecified (8) HTN (hypertension) Code(s): I10 - ESSENTIAL (PRIMARY) HYPERTENSION Qualifiers: Hypertension type: essential hypertension Qualified Code(s): I10 - Essential (primary) hypertension (9) Hypothyroidism Assessment/Plan: Cont levothyroxine Code(s): E03.9 - HYPOTHYROIDISM, UNSPECIFIED Qualifiers: Hypothyroidism type: acquired Qualified Code(s): E03.9 - Hypothyroidism, unspecified
[2019-01-02] MEDS: LEVOTHYROXINE NA 50 MCG TABLET (FP) PO SCH (06:18)
--- NOTE | 2019-01-02 07:54 | CONS ---
DATE OF CONSULTATION: DATE OF DICTATION: 01/01/2019 The patient is a 73-year-old female with a past medical history of CAD, multiple myeloma, amyloid CAD, atrial fibrillation, CHF, cardiac stent on December 23, who was admitted with shortness of breath. She was found to have an acute exacerbation of her CHF. During the course, she developed 2 episodes, as per her history, of hematochezia. She states, over the past couple of weeks, she has been noticing specks of bright red blood in her stool and, earlier this morning, she saw some more bright red blood in the toilet bowl after her bowel movement. She denies any melena, abdominal pain, nausea, vomiting, or hematemesis and no syncope. Apparently, she had a colonoscopy a couple of weeks ago, which revealed a rectal polyp; however, it was not removed at the time of the colonoscopy. PAST MEDICAL/SURGICAL HISTORY: As listed in the HPI with the addition of a breast biopsy for cysts, hernia repair of her hiatal hernia, hysterectomy, and a tubal ligation. SOCIAL HISTORY: She denies smoking, drinking, or drug abuse. She quit smoking in 1987. FAMILY HISTORY: Noncontributory. PHYSICAL EXAMINATION: Vital Signs: Temperature 97, pulse 82, blood pressure 110/62, respiratory rate 12, pulse oximetry 96% on 3 L. General: In no acute distress, pleasant female. HEENT: Anicteric sclerae. Cardiovascular: S1, S2. Regular rate and rhythm. Lungs: Bilateral clear to auscultation. Abdomen: Soft and nontender. Extremities: No edema. LABORATORIES: White blood cell count 5.5, hemoglobin 8.9, hematocrit 26, MCV 92, platelet count 165. INR 1.18. Sodium 142, potassium 3.2, BUN 30, creatinine 1.2. AST 14, ALT 15, alkaline phosphatase 60, total bilirubin 0.4. Troponin peaked at 0.37. BNP 24,000. Stool for occult blood was negative on the . Cultures are negative in the blood and VRE was isolated from the urine. She has had no abdominal imaging on this admission. Her chest x-ray revealed congestive changes with bilateral pleural effusions. IMPRESSION: Episodes of hematochezia, most likely secondary from oozing from her rectal polyp, which was not removed in the past. Also, hemorrhoids can be contributing. There is no sign of an overt gastrointestinal bleed at this time. She was hemodynamically stable. RECOMMENDATION: Trend hemoglobin and hematocrit q.12 while hospitalized, avoid additional NSAIDs. She is currently on aspirin and Plavix for her stents. Start her on Protonix 40 mg p.o. daily. Diet as tolerated. She would benefit from a repeat colonoscopy once the acute cardiopulmonary process resolved, with polyp removal. This patient will be followed by the GI Service. DO HORTENSIA ALMODOVAR/[id number]
[2019-01-02 08:10] LABS: HEMATOCRIT 24.2 % (32.4-45.2); HEMOGLOBIN 8.2 GM/dL (10.7-15.3); MCH 30.8 pg (25.7-33.7); MCHC 33.9 g/dl (32.0-36.0); MEAN CELL VOLUME 90.8 fl (80-96); MEAN PLT VOLUME 9.2 fl (7.5-11.1); PLATELET COUNT 159 K/MM3 (134-434); RBC 2.66 M/mm3 (3.60-5.2); RDW 19.2 % (11.6-15.6); WHITE BLOOD COUNT 4.9 K/mm3 (4.0-10.0)
--- NOTE | 2019-01-02 08:10 | PN ---
Progress Note (short form) - Note Progress Note: Coverage for Dr. Ijeoma Ordonez Chief Complaint: Events noted, notes reviewed, dyspnea persists but continues to improve, denies any chest pain, remains on Lasix drip History of Present Illness: Seen and examined on telemetry. Events noted, notes reviewed, dyspnea persists but continues to improve, denies any chest pain, remains on Lasix drip Lower GI bleed reported Echocardiography report noted low normal LVEF 50%, mild MR, AI and TR - Current Medication List Current Medications: Current Medications Albuterol/Ipratropium (Duoneb -) 1 amp NEB Q6H PRN PRN Reason: SHORTNESS OF BREATH Last Admin: 01/01/19 20:52 Dose: 1 amp Allopurinol (Zyloprim -) 300 mg PO DAILY [facility] Last Admin: 01/01/19 10:20 Dose: 300 mg Aspirin (Asa -) 81 mg PO DAILY [facility] Last Admin: 01/01/19 10:27 Dose: Not Given Atorvastatin Calcium (Lipitor -) 40 mg PO HS [facility] Last Admin: 01/01/19 21:01 Dose: 40 mg Atovaquone (Mepron -) 1,500 mg PO 0800 [facility] Last Admin: 01/01/19 10:34 Dose: 1,500 mg Clopidogrel Bisulfate (Plavix -) 75 mg PO DAILY [facility] Last Admin: 01/01/19 10:27 Dose: Not Given Heparin Sodium (Porcine) (Heparin -) 5,000 unit SQ BID [facility] Last Admin: 01/01/19 21:01 Dose: 5,000 unit Furosemide 100 mg/ Sodium (Chloride) 100 mls @ 5 mls/hr IVPB ASDIR [facility]; Protocol Stop: 01/02/19 23:59 Levothyroxine Sodium (Synthroid -) 50 mcg PO DAILY@0700 [facility] Last Admin: 01/02/19 06:18 Dose: 50 mcg Metoprolol Succinate (Toprol Xl -) 12.5 mg PO DAILY [facility] Last Admin: 01/01/19 10:20 Dose: 12.5 mg Pantoprazole Sodium (Protonix -) 40 mg PO DAILY [facility] Last Admin: 01/01/19 10:20 Dose: 40 mg Review of Systems Cardiovascular: As noted above Respiratory: denies: denies: Cough or Sputum Production Gastrointestinal: denies: Nausea, Vomiting, Diarrhea, Constipation or Abdominal Discomfort Musculoskeletal: No Symptoms Reported Endocrine: No Symptoms Reported - Objective Vital Signs: Last Vital Signs Temp Pulse Resp BP Pulse Ox 98.8 F 100 H 20 98/59 L 99 01/02/19 02:00 01/02/19 06:00 01/02/19 07:51 01/02/19 06:00 01/02/19 07:51 Intake & Output 12/30/18 12/31/18 01/01/19 01/02/19 23:59 23:59 23:59 23:59 Intake Total 400 360 60 Output Total 475 1400 3000 500 Balance -926 -0750 -6642 -768 Weight 168 lb 157 lb 3.2 oz 155 lb 151 lb Constitutional: No Distress Neck: Supple Negative JVD No Bruit Cardiovascular: S1 S2 Regular Rate Rhythm Respiratory: Diminished Breath Sounds Bilaterally Basal Rales Gastrointestinal: Soft Benign Normal Bowel Sounds Ext: No Edema Labs: CBC, BMP 01/02/19 05:50 01/02/19 05:50 Troponin, BNP 01/01/19 13:31 Troponin I 0.27 H Hepatic Panel Total Bilirubin 0.4 mg/dL (0.2-1) 01/01/19 06:00 AST 14 U/L (15-37) L 01/01/19 06:00 ALT 15 U/L (13-61) 01/01/19 06:00 Alkaline Phosphatase 60 U/L (45-117) 01/01/19 06:00 Albumin 1.6 g/dl (3.4-5.0) L 01/01/19 06:00 Assessment/Plan ASSESSMENT: 1. Acute on chronic class II-III NYHA classification systolic LV failure, resolving 2. 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 CAD post recent NSTEMI post HOLLY-LAD-D1 angina pectoris 4. Hypotension, improved 5. Hypothyroidism 6. Multiple myeloma on chemotherapy 7. Chronic Anemia PLAN: 1. Continue Plavix but D/C ASA (lower GI bleed) with caution and close monitoring of CBC, transfuse to maintain Hg > 8.0 2. Continue Toprol XL with caution, hemodnamics permitting 3. Add ACEI or ARBS with caution unless contraindicated, hemodnamics permitting and with close monitoring of renal function 4. D/C Lasix drip and initiate PO Lasix with intermittent Lasix IV boluses, with close monitoring of renal function Katty Manriquez MD
[2019-01-02 09:07] LABS: ALBUMIN 1.5 g/dl (3.4-5.0); ALK PHOS 58 U/L (45-117); ANION GAP 9 MMOL/L (8-16); BILIRUBIN,TOTAL 0.4 mg/dL (0.2-1); BLOOD UREA NITROGEN 30 mg/dL (7-18); CALCIUM 8.4 mg/dL (8.5-10.1); CHLORIDE 104 mmol/L (98-107); CO2 29 mmol/L (21-32); CREATININE 1.2 mg/dL (0.55-1.3); GLUCOSE,RANDOM 81 mg/dL (74-106); POTASSIUM 3.5 mmol/L (3.5-5.1); SGOT/AST 9 U/L (15-37); SGPT/ALT 20 U/L (13-61); SODIUM 142 mmol/L (136-145); TOT PROT 8.1 g/dl (6.4-8.2)
[2019-01-02] MEDS: ASPIRIN 81 MG CHEWABLE TABLETS PO SCH (09:53)
[2019-01-02] MEDS: metoPROLOL SUCCINATE 25 MG TAB.SR.24H (FP) PO SCH (09:53)
[2019-01-02] MEDS: ATOVAQUONE 750 MG/5 ML (UNIT-DOSE PACKAGING) PO SCH (09:53)
[2019-01-02] MEDS: PANTOPRAZOLE 40 MG TABLET (FP) PO SCH (09:53)
[2019-01-02] MEDS: ALLOPURINOL 300 MG TABLET (FP) PO SCH (09:53)
[2019-01-02] MEDS: CLOPIDOGREL BISULFATE 75 MG TABLET (FP) PO SCH (09:54)
[2019-01-02] MEDS: HEPARIN NA (PORCINE) 5,000 UNITS/ML 1ML VIAL SQ SCH ×2 (09:54→22:41)
--- NOTE | 2019-01-02 10:15 | PN ---
Progress Note, Physician Chief Complaint: no new complaints - Current Medication List Current Medications: Active Medications Albuterol/Ipratropium (Duoneb -) 1 amp NEB Q6H PRN PRN Reason: SHORTNESS OF BREATH Last Admin: 01/01/19 20:52 Dose: 1 amp Allopurinol (Zyloprim -) 300 mg PO DAILY [facility] Last Admin: 01/02/19 09:53 Dose: 300 mg Aspirin (Asa -) 81 mg PO DAILY [facility] Last Admin: 01/02/19 09:53 Dose: 81 mg Atorvastatin Calcium (Lipitor -) 40 mg PO HS [facility] Last Admin: 01/01/19 21:01 Dose: 40 mg Atovaquone (Mepron -) 1,500 mg PO 0800 [facility] Last Admin: 01/02/19 09:53 Dose: Not Given Clopidogrel Bisulfate (Plavix -) 75 mg PO DAILY [facility] Last Admin: 01/02/19 09:54 Dose: 75 mg Heparin Sodium (Porcine) (Heparin -) 5,000 unit SQ BID [facility] Last Admin: 01/02/19 09:54 Dose: Not Given Furosemide 100 mg/ Sodium (Chloride) 100 mls @ 5 mls/hr IVPB ASDIR [facility]; Protocol Stop: 01/02/19 23:59 Levothyroxine Sodium (Synthroid -) 50 mcg PO DAILY@0700 [facility] Last Admin: 01/02/19 06:18 Dose: 50 mcg Metoprolol Succinate (Toprol Xl -) 12.5 mg PO DAILY [facility] Last Admin: 01/02/19 09:53 Dose: 12.5 mg Pantoprazole Sodium (Protonix -) 40 mg PO DAILY [facility] Last Admin: 01/02/19 09:53 Dose: 40 mg - Objective Vital Signs: Vital Signs Temperature 98.8 F 01/02/19 02:00 Pulse Rate 100 H 01/02/19 06:00 Respiratory Rate 20 01/02/19 07:51 Blood Pressure 98/59 L 01/02/19 06:00 O2 Sat by Pulse Oximetry (%) 99 01/02/19 07:51 Constitutional: Yes: Well Nourished Eyes: Yes: WNL HENT: Yes: WNL Neck: Yes: WNL Cardiovascular: Yes: WNL, Regular Rate and Rhythm Respiratory: Yes: WNL, Regular, CTA Bilaterally Gastrointestinal: Yes: WNL, Normal Bowel Sounds, Soft Edema: No Labs: CBC, BMP 01/02/19 05:50 01/02/19 05:50 INR, PTT INR 1.18 (0.83-1.09) H 12/30/18 05:15 Problem List - Problems (1) Anemia Assessment/Plan: advance diet as tolerated trend h/h qd while hospitalized avoid nsaid plan for diagnostic colonoscopy once the acute cardiopulmonary process has resolved. Code(s): D64.9 - ANEMIA, UNSPECIFIED Qualifiers: Chronic kidney disease stage: unspecified stage (2) Elevated troponin Code(s): R74.8 - ABNORMAL LEVELS OF OTHER SERUM ENZYMES
--- NOTE | 2019-01-02 11:52 | PN ---
Progress Note (short form) - Note Progress Note: Breathing feels better with continued diuresis. Still with some ROGERS. No CP. Afebrile. Intake & Output 12/30/18 12/31/18 01/01/19 01/02/19 23:59 23:59 23:59 23:59 Intake Total 400 360 60 Output Total 475 1400 3000 500 Balance -475 -1000 -2640 -440 Weight 168 lb 157 lb 3.2 oz 155 lb 151 lb Last Vital Signs Temp Pulse Resp BP Pulse Ox 98.8 F 100 H 105 H 106/68 99 01/02/19 02:00 01/02/19 06:00 01/02/19 10:27 01/02/19 10:27 01/02/19 07:51 Active Medications Albuterol/Ipratropium (Duoneb -) 1 amp NEB Q6H PRN PRN Reason: SHORTNESS OF BREATH Last Admin: 01/01/19 20:52 Dose: 1 amp Allopurinol (Zyloprim -) 300 mg PO DAILY [facility] Last Admin: 01/02/19 09:53 Dose: 300 mg Aspirin (Asa -) 81 mg PO DAILY [facility] Last Admin: 01/02/19 09:53 Dose: 81 mg Atorvastatin Calcium (Lipitor -) 40 mg PO HS [facility] Last Admin: 01/01/19 21:01 Dose: 40 mg Atovaquone (Mepron -) 1,500 mg PO 0800 [facility] Last Admin: 01/02/19 09:53 Dose: Not Given Clopidogrel Bisulfate (Plavix -) 75 mg PO DAILY [facility] Last Admin: 01/02/19 09:54 Dose: 75 mg Heparin Sodium (Porcine) (Heparin -) 5,000 unit SQ BID [facility] Last Admin: 01/02/19 09:54 Dose: Not Given Furosemide 100 mg/ Sodium (Chloride) 100 mls @ 5 mls/hr IVPB ASDIR [facility]; Protocol Stop: 01/02/19 23:59 Levothyroxine Sodium (Synthroid -) 50 mcg PO DAILY@0700 [facility] Last Admin: 01/02/19 06:18 Dose: 50 mcg Metoprolol Succinate (Toprol Xl -) 12.5 mg PO DAILY [facility] Last Admin: 01/02/19 09:53 Dose: 12.5 mg Pantoprazole Sodium (Protonix -) 40 mg PO DAILY [facility] Last Admin: 01/02/19 09:53 Dose: 40 mg Constitutional: No Distress Neck: Supple Negative JVD No Bruit Cardiovascular: S1 S2 Regular Rate Rhythm Respiratory: Bibasilar Rales Gastrointestinal: Soft Benign Normal Bowel Sounds Ext: No Edema Laboratory Results - last 24 hr 01/01/19 01/01/19 01/01/19 12:45 13:31 18:00 WBC 5.5 RBC 2.90 L Hgb 8.9 L Hct 26.8 L MCV 92.5 MCH 30.8 MCHC 33.3 RDW 19.9 H Plt Count 165 MPV 8.9 Sodium Potassium Chloride Carbon Dioxide Anion Gap BUN Creatinine Creat Clearance w eGFR Random Glucose Calcium Magnesium Total Bilirubin AST ALT Alkaline Phosphatase Creatine Kinase 75 Troponin I 0.27 H Total Protein Albumin U Random Total Protein 135.2 H Urine Creatinine 38.0 Protein/Creatinin Ratio 3.550 01/02/19 01/02/19 05:50 05:50 WBC 4.9 RBC 2.66 L Hgb 8.2 L Hct 24.2 L MCV 90.8 MCH 30.8 MCHC 33.9 RDW 19.2 H Plt Count 159 MPV 9.2 Sodium 142 Potassium 3.5 Chloride 104 Carbon Dioxide 29 Anion Gap 9 BUN 30 H Creatinine 1.2 Creat Clearance w eGFR 43.91 Random Glucose 81 Calcium 8.4 L Magnesium 2.0 Total Bilirubin 0.4 AST 9 L ALT 20 Alkaline Phosphatase 58 Creatine Kinase Troponin I Total Protein 8.1 Albumin 1.5 L U Random Total Protein Urine Creatinine Protein/Creatinin Ratio Problem List - Problems (1) Acute exacerbation of CHF (congestive heart failure) Code(s): I50.9 - HEART FAILURE, UNSPECIFIED (2) Acute on chronic systolic CHF (congestive heart failure) Code(s): I50.23 - ACUTE ON CHRONIC SYSTOLIC (CONGESTIVE) HEART FAILURE (3) Anemia Code(s): D64.9 - ANEMIA, UNSPECIFIED Qualifiers: Chronic kidney disease stage: unspecified stage (4) CAD (coronary artery disease) Code(s): I25.10 - ATHSCL HEART DISEASE OF [place] CORONARY ARTERY W/O ANG PCTRS Qualifiers: Coronary Disease-Associated Artery/Lesion type: [place] artery Associated angina: without angina (5) Elevated troponin Code(s): R74.8 - ABNORMAL LEVELS OF OTHER SERUM ENZYMES (6) Multiple myeloma Code(s): C90.00 - MULTIPLE MYELOMA NOT HAVING ACHIEVED REMISSION Qualifiers: Multiple myeloma remission status: not in remission Qualified Code(s): C90.00 - Multiple myeloma not having achieved remission (7) Respiratory insufficiency Code(s): R06.89 - OTHER ABNORMALITIES OF BREATHING (8) HLD (hyperlipidemia) Code(s): E78.5 - HYPERLIPIDEMIA, UNSPECIFIED Qualifiers: Hyperlipidemia type: unspecified Qualified Code(s): E78.5 - Hyperlipidemia , unspecified (9) HTN (hypertension) Code(s): I10 - ESSENTIAL (PRIMARY) HYPERTENSION Qualifiers: Hypertension type: essential hypertension Qualified Code(s): I10 - Essential (primary) hypertension (10) PAF (paroxysmal atrial fibrillation) Code(s): I48.0 - PAROXYSMAL ATRIAL FIBRILLATION (11) Multiple myeloma Code(s): C90.00 - MULTIPLE MYELOMA NOT HAVING ACHIEVED REMISSION (12) PHT (pulmonary hypertension) Code(s): I27.20 - PULMONARY HYPERTENSION, UNSPECIFIED (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 IMP ACUTE ON CHRONIC CHF CARDIOMYOPATHY ASHD S/P NSTEMI,S/P HOLLY STENT 12/21 MYELOMA /AMYLOIDOSIS ON CHEMO PULMONARY HTN ANEMIA H/O GI BLEED +TROPONIN PLAN IV LASIX DRIP O2 NEEDED DAILY WT MONITOR LYTES MONITOR H+H NORMAL TRANSFUSION THRESHOLD DR FRANKEL
--- NOTE | 2019-01-02 18:17 | PN ---
Progress Note, Physician History of Present Illness: Pt seen and examined at bedside. She feels that the edema is improving. She still gets short of breath with exertion. - Current Medication List Current Medications: Active Medications Albuterol/Ipratropium (Duoneb -) 1 amp NEB Q6H PRN PRN Reason: SHORTNESS OF BREATH Last Admin: 01/01/19 20:52 Dose: 1 amp Allopurinol (Zyloprim -) 300 mg PO DAILY [facility] Last Admin: 01/02/19 09:53 Dose: 300 mg Aspirin (Asa -) 81 mg PO DAILY [facility] Last Admin: 01/02/19 09:53 Dose: 81 mg Atorvastatin Calcium (Lipitor -) 40 mg PO HS [facility] Last Admin: 01/01/19 21:01 Dose: 40 mg Atovaquone (Mepron -) 1,500 mg PO 0800 [facility] Last Admin: 01/02/19 09:53 Dose: Not Given Clopidogrel Bisulfate (Plavix -) 75 mg PO DAILY [facility] Last Admin: 01/02/19 09:54 Dose: 75 mg Furosemide (Lasix -) 40 mg PO BID@0600,1400 [facility] Heparin Sodium (Porcine) (Heparin -) 5,000 unit SQ BID [facility] Last Admin: 01/02/19 09:54 Dose: Not Given Levothyroxine Sodium (Synthroid -) 50 mcg PO DAILY@0700 [facility] Last Admin: 01/02/19 06:18 Dose: 50 mcg Metoprolol Succinate (Toprol Xl -) 12.5 mg PO DAILY [facility] Last Admin: 01/02/19 09:53 Dose: 12.5 mg Pantoprazole Sodium (Protonix -) 40 mg PO DAILY [facility] Last Admin: 01/02/19 09:53 Dose: 40 mg - Objective Vital Signs: Vital Signs Temperature 98.2 F 01/02/19 14:22 Pulse Rate 91 H 01/02/19 14:22 Respiratory Rate 18 01/02/19 14:22 Blood Pressure 124/69 01/02/19 14:22 O2 Sat by Pulse Oximetry (%) 99 01/02/19 07:51 Constitutional: Yes: Calm Eyes: Yes: Conjunctiva Clear HENT: Yes: Atraumatic Neck: Yes: Supple Cardiovascular: Yes: S1, S2 Respiratory: Yes: On Nasal O2 Gastrointestinal: Yes: Soft Genitourinary: Yes: WNL Musculoskeletal: Yes: WNL Edema: Yes Edema: LLE: 2+, RLE: 2+ Neurological: Yes: Oriented Psychiatric: Yes: Oriented Labs: CBC, BMP 01/02/19 05:50 01/02/19 05:50 INR, PTT INR 1.18 (0.83-1.09) H 12/30/18 05:15 Problem List - Problems (1) CKD (chronic kidney disease) Code(s): N18.9 - CHRONIC KIDNEY DISEASE, UNSPECIFIED (2) Acute exacerbation of CHF (congestive heart failure) Code(s): I50.9 - HEART FAILURE, UNSPECIFIED Assessment/Plan Current Medications Generic Name Dose Route Start Last Admin Trade Name Freq PRN Reason Stop Dose Admin Albuterol/Ipratropium 1 amp 12/30/18 13:39 01/01/19 20:52 Duoneb - NEB 1 amp Q6H PRN Administration SHORTNESS OF BREATH Allopurinol 300 mg 12/30/18 13:45 01/02/19 09:53 Zyloprim - PO 300 mg DAILY [facility] Administration Aspirin 81 mg 12/30/18 14:00 01/02/19 09:53 Asa - PO 81 mg DAILY [facility] Administration Atorvastatin Calcium 40 mg 12/30/18 22:00 01/01/19 21:01 Lipitor - PO 40 mg HS [facility] Administration Atovaquone 1,500 mg 12/31/18 08:00 01/02/19 09:53 Mepron - PO Not Given 0800 [facility] Clopidogrel Bisulfate 75 mg 12/31/18 10:00 01/02/19 09:54 Plavix - PO 75 mg DAILY [facility] Administration Furosemide 40 mg 01/03/19 06:00 Lasix - PO BID@0600,1400 [facility] Heparin Sodium (Porcine) 5,000 unit 12/30/18 22:00 01/02/19 09:54 Heparin - SQ Not Given BID [facility] Levothyroxine Sodium 50 mcg 12/31/18 07:00 01/02/19 06:18 Synthroid - PO 50 mcg DAILY@0700 [facility] Administration Metoprolol Succinate 12.5 mg 12/31/18 10:00 01/02/19 09:53 Toprol Xl - PO 12.5 mg DAILY [facility] Administration Pantoprazole Sodium 40 mg 12/30/18 13:45 01/02/19 09:53 Protonix - PO 40 mg DAILY [facility] Administration Impression 1. proteinuria 2. multiple myeloma 3. amyloid 4. fluid overload 5. hypotension 6. HLD 7. hypothyroidism 8. anemia 9. CKD Plan - bp is improved - cont lasix - agree with transitioning to scheduled doses - repeat labs in am - myeloma and amyloid can explain proteinuria
--- NOTE | 2019-01-02 19:55 | PN ---
Progress Note (short form) - Note Progress Note: Patient seen in follow up. Reports breathing at baseline. Denies blood in her stools. Inpatient Meds reviewed. Current Medications Generic Name Dose Route Start Last Admin Trade Name Freq PRN Reason Stop Dose Admin Albuterol/Ipratropium 1 amp 12/30/18 13:39 01/01/19 20:52 Duoneb - NEB 1 amp Q6H PRN Administration SHORTNESS OF BREATH Allopurinol 300 mg 12/30/18 13:45 01/02/19 09:53 Zyloprim - PO 300 mg DAILY [facility] Administration Aspirin 81 mg 12/30/18 14:00 01/02/19 09:53 Asa - PO 81 mg DAILY [facility] Administration Atorvastatin Calcium 40 mg 12/30/18 22:00 01/01/19 21:01 Lipitor - PO 40 mg HS [facility] Administration Atovaquone 1,500 mg 12/31/18 08:00 01/02/19 09:53 Mepron - PO Not Given 0800 [facility] Clopidogrel Bisulfate 75 mg 12/31/18 10:00 01/02/19 09:54 Plavix - PO 75 mg DAILY [facility] Administration Furosemide 40 mg 01/03/19 06:00 Lasix - PO BID@0600,1400 [facility] Heparin Sodium (Porcine) 5,000 unit 12/30/18 22:00 01/02/19 09:54 Heparin - SQ Not Given BID [facility] Levothyroxine Sodium 50 mcg 12/31/18 07:00 01/02/19 06:18 Synthroid - PO 50 mcg DAILY@0700 [facility] Administration Metoprolol Succinate 12.5 mg 12/31/18 10:00 01/02/19 09:53 Toprol Xl - PO 12.5 mg DAILY [facility] Administration Pantoprazole Sodium 40 mg 12/30/18 13:45 01/02/19 09:53 Protonix - PO 40 mg DAILY [facility] Administration On Examination: Last Vital Signs Temp Pulse Resp BP Pulse Ox 98.2 F 91 H 18 124/69 99 01/02/19 14:22 01/02/19 14:22 01/02/19 14:22 01/02/19 14:22 01/02/19 07:51 General: In no acute distress, sitting in chair. Extremities: No pallor or icterus. No pedal edema. No palpable lymphadenopathy. CVS: S1, S2, regular, no gallop or murmur. Chest: good air entry bilaterally, clear Abdomen: Non-distended, non-tender, no palpable organomegaly. Neuro: Alert, oriented, non-focal. Labs: CBC, BMP 01/02/19 05:50 01/02/19 05:50 Assessment. IgA myeloma, with anemia and proteinuria (normal creatinine). Currently receiving Velcade/Cytoxan/Dex - last dose few days ago. Presented with dyspnea attributed to fluid overload/CHF, now improved with diuresis. Cardiology following - reported non-ischemic DCM - (EF 50%, and recent stenting at [facility]- ?) Back to baseline at this time - comfortable lying supine. Recently worked up for GI bleed - recent colonoscopy showing only a polyp - removed. Follow up with oncology following discharge - for continued chemotherapy.
[2019-01-02] MEDS: ATORVASTATIN CA 40 MG TABLET (FP) PO SCH (22:41)
--- NOTE | 2019-01-02 23:36 | PN ---
Progress Note, Physician History of Present Illness: Pt is concerned that she feels SOB at night and is still needing O2 - Current Medication List Current Medications: Active Medications Albuterol/Ipratropium (Duoneb -) 1 amp NEB Q6H PRN PRN Reason: SHORTNESS OF BREATH Last Admin: 01/01/19 20:52 Dose: 1 amp Allopurinol (Zyloprim -) 300 mg PO DAILY [facility] Last Admin: 01/02/19 09:53 Dose: 300 mg Aspirin (Asa -) 81 mg PO DAILY [facility] Last Admin: 01/02/19 09:53 Dose: 81 mg Atorvastatin Calcium (Lipitor -) 40 mg PO HS [facility] Last Admin: 01/02/19 22:41 Dose: 40 mg Atovaquone (Mepron -) 1,500 mg PO 0800 [facility] Last Admin: 01/02/19 09:53 Dose: Not Given Clopidogrel Bisulfate (Plavix -) 75 mg PO DAILY [facility] Last Admin: 01/02/19 09:54 Dose: 75 mg Furosemide (Lasix -) 40 mg PO BID@0600,1400 [facility] Heparin Sodium (Porcine) (Heparin -) 5,000 unit SQ BID [facility] Last Admin: 01/02/19 22:41 Dose: Not Given Levothyroxine Sodium (Synthroid -) 50 mcg PO DAILY@0700 [facility] Last Admin: 01/02/19 06:18 Dose: 50 mcg Metoprolol Succinate (Toprol Xl -) 12.5 mg PO DAILY [facility] Last Admin: 01/02/19 09:53 Dose: 12.5 mg Pantoprazole Sodium (Protonix -) 40 mg PO DAILY [facility] Last Admin: 01/02/19 09:53 Dose: 40 mg - Objective Vital Signs: Vital Signs Temperature 98.0 F 01/02/19 18:00 Pulse Rate 80 01/02/19 18:00 Respiratory Rate 18 01/02/19 18:00 Blood Pressure 120/70 01/02/19 18:00 O2 Sat by Pulse Oximetry (%) 99 01/02/19 07:51 Neck: Yes: WNL, Supple Cardiovascular: Yes: WNL, Regular Rate and Rhythm Respiratory: Yes: Rales Gastrointestinal: Yes: WNL, Normal Bowel Sounds, Soft Edema: LLE: 1+, RLE: 1+ Labs: CBC, BMP 01/02/19 05:50 01/02/19 05:50 INR, PTT INR 1.18 (0.83-1.09) H 12/30/18 05:15 Problem List - Problems (1) Acute on chronic systolic CHF (congestive heart failure) Assessment/Plan: Pt changing from lasix drip to PO lasix w/ bolus Monitor electrolytes and renal function Code(s): I50.23 - ACUTE ON CHRONIC SYSTOLIC (CONGESTIVE) HEART FAILURE (2) Acute respiratory failure Assessment/Plan: Pt still requiring O2 Due to volume overload Cont diuresis and monitor Code(s): J96.00 - ACUTE RESPIRATORY FAILURE, UNSP W HYPOXIA OR HYPERCAPNIA (3) Anemia Assessment/Plan: GI bleed Pt had colonoscopy about 2 weeks ago at [facility] and found to have rectal polyp As per GI Monitor H/H and transfuse as needed Code(s): D64.9 - ANEMIA, UNSPECIFIED Qualifiers: Chronic kidney disease stage: unspecified stage (4) CKD (chronic kidney disease) Assessment/Plan: Due to proteinuria/Multiple myeloma/amyloid Code(s): N18.9 - CHRONIC KIDNEY DISEASE, UNSPECIFIED (5) Multiple myeloma Assessment/Plan: Velcade/cytotoxan/dex as per onco Pt's last dose about 2 weeks ago Code(s): C90.00 - MULTIPLE MYELOMA NOT HAVING ACHIEVED REMISSION (6) CAD (coronary artery disease) Assessment/Plan: Cont plavix ASA was dc'ed due to GI bleed S/P NSTEMI and stent placement Code(s): I25.10 - ATHSCL HEART DISEASE OF [place] CORONARY ARTERY W/O ANG PCTRS Qualifiers: Coronary Disease-Associated Artery/Lesion type: [place] artery Associated angina: without angina (7) HTN (hypertension) Code(s): I10 - ESSENTIAL (PRIMARY) HYPERTENSION Qualifiers: Hypertension type: essential hypertension Qualified Code(s): I10 - Essential (primary) hypertension (8) HLD (hyperlipidemia) Assessment/Plan: Cont lipitor Code(s): E78.5 - HYPERLIPIDEMIA, UNSPECIFIED Qualifiers: Hyperlipidemia type: unspecified Qualified Code(s): E78.5 - Hyperlipidemia , unspecified (9) Hypothyroidism Assessment/Plan: Cont levothyroxine Code(s): E03.9 - HYPOTHYROIDISM, UNSPECIFIED Qualifiers: Hypothyroidism type: acquired Qualified Code(s): E03.9 - Hypothyroidism, unspecified (10) PAF (paroxysmal atrial fibrillation) Code(s): I48.0 - PAROXYSMAL ATRIAL FIBRILLATION (11) Elevated troponin Code(s): R74.8 - ABNORMAL LEVELS OF OTHER SERUM ENZYMES
[2019-01-03] MEDS ORDERED: FUROSEMIDE 40 MG TABLET (FP) PO SCH (06:00)
[2019-01-03] MEDS: LEVOTHYROXINE NA 50 MCG TABLET (FP) PO SCH (06:49)
[2019-01-03 06:55] LABS: BASO % 0.3 % (0-2.0); EOS % 0.4 % (0-4.5); HEMATOCRIT 23.1 % (32.4-45.2); HEMOGLOBIN 7.8 GM/dL (10.7-15.3); LYMPH % 31.4 % (8-40); MCH 30.5 pg (25.7-33.7); MCHC 33.7 g/dl (32.0-36.0); MEAN CELL VOLUME 90.7 fl (80-96); MEAN PLT VOLUME 9.6 fl (7.5-11.1); NEUT % 55.9 % (42.8-82.8); PLATELET COUNT 146 K/MM3 (134-434); RBC 2.54 M/mm3 (3.60-5.2); RDW 19.6 % (11.6-15.6); WHITE BLOOD COUNT 4.5 K/mm3 (4.0-10.0)
[2019-01-03 07:25] LABS: ANION GAP 9 MMOL/L (8-16); BLOOD UREA NITROGEN 28 mg/dL (7-18); CALCIUM 8.4 mg/dL (8.5-10.1); CHLORIDE 104 mmol/L (98-107); CO2 28 mmol/L (21-32); GLUCOSE,RANDOM 85 mg/dL (74-106); MAGNESIUM 1.9 mg/dL (1.8-2.4); POTASSIUM 3.5 mmol/L (3.5-5.1); SODIUM 141 mmol/L (136-145)
--- NOTE | 2019-01-03 08:52 | PN ---
Progress Note, Physician Chief Complaint: Events from weekend reviewed. Significant weight loss and good clinical response to lasix gtts: down from 168 lbs to 149lbs. Also, had some rectal bleeding over weekend and slight drop in H/H to below 8 this AM - Current Medication List Current Medications: Active Medications Albuterol/Ipratropium (Duoneb -) 1 amp NEB Q6H PRN PRN Reason: SHORTNESS OF BREATH Last Admin: 01/01/19 20:52 Dose: 1 amp Allopurinol (Zyloprim -) 300 mg PO DAILY [facility] Last Admin: 01/02/19 09:53 Dose: 300 mg Aspirin (Asa -) 81 mg PO DAILY [facility] Last Admin: 01/02/19 09:53 Dose: 81 mg Atorvastatin Calcium (Lipitor -) 40 mg PO HS [facility] Last Admin: 01/02/19 22:41 Dose: 40 mg Atovaquone (Mepron -) 1,500 mg PO 0800 [facility] Last Admin: 01/02/19 09:53 Dose: Not Given Clopidogrel Bisulfate (Plavix -) 75 mg PO DAILY [facility] Last Admin: 01/02/19 09:54 Dose: 75 mg Furosemide (Lasix -) 40 mg PO BID@0600,1400 [facility] Last Admin: 01/03/19 06:49 Dose: 40 mg Heparin Sodium (Porcine) (Heparin -) 5,000 unit SQ BID [facility] Last Admin: 01/02/19 22:41 Dose: Not Given Levothyroxine Sodium (Synthroid -) 50 mcg PO DAILY@0700 [facility] Last Admin: 01/03/19 06:49 Dose: 50 mcg Metoprolol Succinate (Toprol Xl -) 12.5 mg PO DAILY [facility] Last Admin: 01/02/19 09:53 Dose: 12.5 mg Pantoprazole Sodium (Protonix -) 40 mg PO DAILY [facility] Last Admin: 01/02/19 09:53 Dose: 40 mg - Objective Vital Signs: Vital Signs Temperature 98.0 F 01/03/19 02:18 Pulse Rate 94 H 01/03/19 06:00 Respiratory Rate 18 01/03/19 06:00 Blood Pressure 111/71 01/03/19 06:00 O2 Sat by Pulse Oximetry (%) 97 01/03/19 07:35 Constitutional: Yes: No Distress Cardiovascular: Yes: Regular Rate and Rhythm Respiratory: Yes: Other (decreased) Gastrointestinal: Yes: Soft (NT) Edema: Yes Edema: LLE: 1+, RLE: 1+ Peripheral Pulses WNL: Yes Neurological: Yes: Alert, Oriented ...Motor Strength: WNL Labs: CBC, BMP 01/03/19 05:30 01/03/19 05:30 INR, PTT INR 1.18 (0.83-1.09) H 12/30/18 05:15 - ....Imaging EKG: Image Reviewed (TELE: NSR, NSST changes) Problem List - Problems (1) Acute on chronic systolic CHF (congestive heart failure) Code(s): I50.23 - ACUTE ON CHRONIC SYSTOLIC (CONGESTIVE) HEART FAILURE (2) CAD (coronary artery disease) Code(s): I25.10 - ATHSCL HEART DISEASE OF [place] CORONARY ARTERY W/O ANG PCTRS Qualifiers: Coronary Disease-Associated Artery/Lesion type: [place] artery Associated angina: without angina (3) Multiple myeloma Code(s): C90.00 - MULTIPLE MYELOMA NOT HAVING ACHIEVED REMISSION Qualifiers: Multiple myeloma remission status: not in remission Qualified Code(s): C90.00 - Multiple myeloma not having achieved remission (4) Anemia Code(s): D64.9 - ANEMIA, UNSPECIFIED Qualifiers: Chronic kidney disease stage: unspecified stage (5) Elevated troponin I level Code(s): R74.8 - ABNORMAL LEVELS OF OTHER SERUM ENZYMES Assessment/Plan IMP: Acute on chronic systolic CHF Cardiomyopathy, mild LV systolic dysfunction Recent NSTEMI s/p HOLLY D1 Multiple myeloma on chemotherapy Chronic Anemia- guaiac negative, but known rectal polyp REC: 1. Clinically improved with several days lasix gtts: now switched to PO 40mg BID. 2. Continue low dose Toprol, tolerated well (CAD/CHF w/ mild LV dysfx). 3. Strict Is/Os (higgins), daily weights and daily BMP to monitor renal fxn. 4. Will try to initiate ELLYN or ARB this admission if BP allows. 5. To continue ASA/Plavix/Atorvastatin s/p recent NSTEMI w/ HOLLY to D1 (new generation HOLLY will require Plavix for 3 months, ASA lifelong) 6. Supplimental O2 7. Hb now has drifted below 8, had some rectal bleeding over weeked likely from rectal polyp. Will transfuse 1UPRBCs with IV Lasix afterward and repeat CBC. Will need to remain on DAPT for at least 3 months (recent NSTEMI and HOLLY). If removal of rectal polyp can be held until then may be optimal. This depends on clinical course.
[2019-01-03] MEDS: ATOVAQUONE 750 MG/5 ML (UNIT-DOSE PACKAGING) PO SCH (09:58)
[2019-01-03] MEDS: ALLOPURINOL 300 MG TABLET (FP) PO SCH (09:59)
[2019-01-03] MEDS: PANTOPRAZOLE 40 MG TABLET (FP) PO SCH (09:59)
[2019-01-03] MEDS: CLOPIDOGREL BISULFATE 75 MG TABLET (FP) PO SCH (09:59)
[2019-01-03] MEDS: metoPROLOL SUCCINATE 25 MG TAB.SR.24H (FP) PO SCH (09:59)
[2019-01-03] MEDS: FUROSEMIDE 40 MG/4 ML INJECTABLE VIAL IVPUSH SCH ×2 (09:59→16:42)
[2019-01-03] MEDS: ASPIRIN 81 MG CHEWABLE TABLETS PO SCH (09:59)
[2019-01-03] MEDS: HEPARIN NA (PORCINE) 5,000 UNITS/ML 1ML VIAL SQ SCH ×2 (10:00→21:27)
--- NOTE | 2019-01-03 10:42 | PN ---
Progress Note, Physician History of Present Illness: GI FOLLOW UP NOTE Patient examined and case discussed with Dr. Perkins Patient examined lying in bed. Patient complains of rectal pain, rectal exam performed and no blood noted on glove. Patient was noted by RN to have red flank blood dripping after using the bathroom this morning. BP done after and no orthostatic changes noted. Denies abdominal pain, nausea, vomiting. - Current Medication List Current Medications: Active Medications Albuterol/Ipratropium (Duoneb -) 1 amp NEB Q6H PRN PRN Reason: SHORTNESS OF BREATH Last Admin: 01/01/19 20:52 Dose: 1 amp Allopurinol (Zyloprim -) 300 mg PO DAILY [facility] Last Admin: 01/03/19 09:59 Dose: 300 mg Aspirin (Asa -) 81 mg PO DAILY [facility] Last Admin: 01/03/19 09:59 Dose: 81 mg Atorvastatin Calcium (Lipitor -) 40 mg PO HS [facility] Last Admin: 01/02/19 22:41 Dose: 40 mg Atovaquone (Mepron -) 1,500 mg PO 0800 [facility] Last Admin: 01/03/19 09:58 Dose: 1,500 mg Clopidogrel Bisulfate (Plavix -) 75 mg PO DAILY [facility] Last Admin: 01/03/19 09:59 Dose: 75 mg Furosemide (Lasix Injection -) 40 mg IVPUSH [employer] [facility] Stop: 01/03/19 22:00 Last Admin: 01/03/19 09:59 Dose: Not Given Heparin Sodium (Porcine) (Heparin -) 5,000 unit SQ BID [facility] Last Admin: 01/03/19 10:00 Dose: Not Given Levothyroxine Sodium (Synthroid -) 50 mcg PO DAILY@0700 [facility] Last Admin: 01/03/19 06:49 Dose: 50 mcg Metoprolol Succinate (Toprol Xl -) 12.5 mg PO DAILY [facility] Last Admin: 01/03/19 09:59 Dose: 12.5 mg Pantoprazole Sodium (Protonix -) 40 mg PO DAILY [facility] Last Admin: 01/03/19 09:59 Dose: 40 mg - Objective Vital Signs: Vital Signs Temperature 98.0 F 01/03/19 02:18 Pulse Rate 94 H 01/03/19 06:00 Respiratory Rate 18 01/03/19 06:00 Blood Pressure 111/71 01/03/19 06:00 O2 Sat by Pulse Oximetry (%) 97 01/03/19 07:35 Constitutional: Yes: No Distress, Calm Eyes: Yes: Conjunctiva Clear HENT: Yes: Atraumatic Cardiovascular: Yes: Regular Rate and Rhythm Respiratory: Yes: Regular, Diminished Gastrointestinal: Yes: Normal Bowel Sounds, Soft, Other (non tender). No: WNL, Abdomen, Obese, Ascites, Distention, Hematemesis, Hemorrhoids, Hepatomegaly, Hernia, Hyperactive Bowel Sounds, Hypoactive Bowel Sounds, Melena, Palpable Mass , Pulsatile Mass, Rectal Bleeding, Splenomegaly, Tenderness, Tenderness, Epigastrium, Tenderness, Rebound, Vomiting ...Rectal Exam: Yes: Hemorrhoids/External. No: WNL, Deferred, Erythema, Guaiac Negative, Guaiac Positive, Guaiac Trace, Hemorrhoids/Internal, Induration, Inflammation, Mass, Sphincter Tone Normal, Sphincter Tone Poor, Other Neurological: Yes: Alert, Oriented Labs: CBC, BMP 01/03/19 05:30 01/03/19 05:30 INR, PTT INR 1.18 (0.83-1.09) H 12/30/18 05:15 <Karina Dutton - Last Filed: 01/03/19 10:36> - Current Medication List Current Medications: Active Medications Albuterol/Ipratropium (Duoneb -) 1 amp NEB Q6H PRN PRN Reason: SHORTNESS OF BREATH Last Admin: 01/01/19 20:52 Dose: 1 amp Allopurinol (Zyloprim -) 300 mg PO DAILY [facility] Last Admin: 01/03/19 09:59 Dose: 300 mg Aspirin (Asa -) 81 mg PO DAILY [facility] Last Admin: 01/03/19 09:59 Dose: 81 mg Atorvastatin Calcium (Lipitor -) 40 mg PO HS [facility] Last Admin: 01/02/19 22:41 Dose: 40 mg Atovaquone (Mepron -) 1,500 mg PO 0800 [facility] Last Admin: 01/03/19 09:58 Dose: 1,500 mg Clopidogrel Bisulfate (Plavix -) 75 mg PO DAILY [facility] Last Admin: 01/03/19 09:59 Dose: 75 mg Furosemide (Lasix Injection -) 40 mg IVPUSH [employer] [facility] Stop: 01/03/19 22:00 Last Admin: 01/03/19 09:59 Dose: Not Given Heparin Sodium (Porcine) (Heparin -) 5,000 unit SQ BID [facility] Last Admin: 01/03/19 10:00 Dose: Not Given Hydrocortisone (Anusol 2.5% Hc Cream -) 1 applic SC DAILY [facility] Levothyroxine Sodium (Synthroid -) 50 mcg PO DAILY@0700 [facility] Last Admin: 01/03/19 06:49 Dose: 50 mcg Metoprolol Succinate (Toprol Xl -) 12.5 mg PO DAILY [facility] Last Admin: 01/03/19 09:59 Dose: 12.5 mg Pantoprazole Sodium (Protonix -) 40 mg PO DAILY [facility] Last Admin: 01/03/19 09:59 Dose: 40 mg - Objective Vital Signs: Vital Signs Temperature 98.0 F 01/03/19 02:18 Pulse Rate 94 H 01/03/19 06:00 Respiratory Rate 18 01/03/19 09:00 Blood Pressure 111/71 01/03/19 06:00 O2 Sat by Pulse Oximetry (%) 97 01/03/19 09:00 Labs: CBC, BMP 01/03/19 05:30 01/03/19 05:30 INR, PTT INR 1.18 (0.83-1.09) H 12/30/18 05:15 <Severo Perkins - Last Filed: 01/03/19 13:43> Problem List - Problems (1) Rectal bleed Assessment/Plan: >monitor H/H daily >current H/H 7.8/23.1 >transfuse PRBC when Hg <8.0 >emergent CTA of Abdomen if profuse bleeding noted from rectum >patient to follow up with outside GI who performed colonoscopy 1 month ago Code(s): K62.5 - HEMORRHAGE OF ANUS AND RECTUM (2) Rectal pain Assessment/Plan: >annusol suppository daily Code(s): K62.89 - OTHER SPECIFIED DISEASES OF ANUS AND RECTUM <Karina Dutton - Last Filed: 01/03/19 10:36>
--- NOTE | 2019-01-03 11:39 | PN ---
Progress Note, Physician History of Present Illness: PULMONARY ALERT,FEELING BETTER,LESS DYSPNEIC ON NASAL CANNULA. + BLOODY STOOLS - Current Medication List Current Medications: Active Medications Albuterol/Ipratropium (Duoneb -) 1 amp NEB Q6H PRN PRN Reason: SHORTNESS OF BREATH Last Admin: 01/01/19 20:52 Dose: 1 amp Allopurinol (Zyloprim -) 300 mg PO DAILY [facility] Last Admin: 01/03/19 09:59 Dose: 300 mg Aspirin (Asa -) 81 mg PO DAILY [facility] Last Admin: 01/03/19 09:59 Dose: 81 mg Atorvastatin Calcium (Lipitor -) 40 mg PO HS [facility] Last Admin: 01/02/19 22:41 Dose: 40 mg Atovaquone (Mepron -) 1,500 mg PO 0800 [facility] Last Admin: 01/03/19 09:58 Dose: 1,500 mg Clopidogrel Bisulfate (Plavix -) 75 mg PO DAILY [facility] Last Admin: 01/03/19 09:59 Dose: 75 mg Furosemide (Lasix Injection -) 40 mg 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 [facility] Stop: 01/03/19 22:00 Last Admin: 01/03/19 09:59 Dose: Not Given Heparin Sodium (Porcine) (Heparin -) 5,000 unit SQ BID [facility] Last Admin: 01/03/19 10:00 Dose: Not Given Hydrocortisone (Anusol 2.5% Hc Cream -) [address] DAILY [facility] Levothyroxine Sodium (Synthroid -) 50 mcg PO DAILY@0700 [facility] Last Admin: 01/03/19 06:49 Dose: 50 mcg Metoprolol Succinate (Toprol Xl -) 12.5 mg PO DAILY [facility] Last Admin: 01/03/19 09:59 Dose: 12.5 mg Pantoprazole Sodium (Protonix -) 40 mg PO DAILY [facility] Last Admin: 01/03/19 09:59 Dose: 40 mg - Objective Vital Signs: Vital Signs Temperature 98.0 F 01/03/19 02:18 Pulse Rate 94 H 01/03/19 06:00 Respiratory Rate 18 01/03/19 09:00 Blood Pressure 111/71 01/03/19 06:00 O2 Sat by Pulse Oximetry (%) 97 01/03/19 09:00 Constitutional: Yes: Well Nourished, Calm Eyes: Yes: WNL HENT: Yes: WNL Neck: Yes: WNL Cardiovascular: Yes: Regular Rate and Rhythm, S1, S2 Respiratory: Yes: Rales (BILATERAL RALES 1/3 UP) Gastrointestinal: Yes: Normal Bowel Sounds, Soft Extremities: Yes: WNL Edema: No Labs: CBC, BMP 01/03/19 05:30 01/03/19 05:30 INR, PTT INR 1.18 (0.83-1.09) H 12/30/18 05:15 Problem List - Problems (1) Acute exacerbation of CHF (congestive heart failure) Code(s): I50.9 - HEART FAILURE, UNSPECIFIED (2) Acute on chronic systolic CHF (congestive heart failure) Code(s): I50.23 - ACUTE ON CHRONIC SYSTOLIC (CONGESTIVE) HEART FAILURE (3) Anemia Code(s): D64.9 - ANEMIA, UNSPECIFIED Qualifiers: Chronic kidney disease stage: unspecified stage (4) CAD (coronary artery disease) Code(s): I25.10 - ATHSCL HEART DISEASE OF [place] CORONARY ARTERY W/O ANG PCTRS Qualifiers: Coronary Disease-Associated Artery/Lesion type: [place] artery Associated angina: without angina (5) Elevated troponin Code(s): R74.8 - ABNORMAL LEVELS OF OTHER SERUM ENZYMES (6) Multiple myeloma Code(s): C90.00 - MULTIPLE MYELOMA NOT HAVING ACHIEVED REMISSION Qualifiers: Multiple myeloma remission status: not in remission Qualified Code(s): C90.00 - Multiple myeloma not having achieved remission (7) Respiratory insufficiency Code(s): R06.89 - OTHER ABNORMALITIES OF BREATHING (8) HLD (hyperlipidemia) Code(s): E78.5 - HYPERLIPIDEMIA, UNSPECIFIED Qualifiers: Hyperlipidemia type: unspecified Qualified Code(s): E78.5 - Hyperlipidemia , unspecified (9) HTN (hypertension) Code(s): I10 - ESSENTIAL (PRIMARY) HYPERTENSION Qualifiers: Hypertension type: essential hypertension Qualified Code(s): I10 - Essential (primary) hypertension (10) PAF (paroxysmal atrial fibrillation) Code(s): I48.0 - PAROXYSMAL ATRIAL FIBRILLATION (11) Multiple myeloma Code(s): C90.00 - MULTIPLE MYELOMA NOT HAVING ACHIEVED REMISSION (12) PHT (pulmonary hypertension) Code(s): I27.20 - PULMONARY HYPERTENSION, UNSPECIFIED (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 Assessment/Plan IMP ACUTE RESPIRATORY FAILURE IMPROVING ACUTE ON CHRONIC CHF IMPROVING CARDIOMYOPATHY ASHD S/P NSTEMI,S/P HOLLY STENT 12/21 MYELOMA /AMYLOIDOSIS ON CHEMO PULMONARY HTN ANEMIA H/O GI BLEED +TROPONIN PLAN IV LASIX O2 NIPPV NEEDED F/U CHEST X-RAYS DAILY WT MONITOR LYTES MONITOR H+H NORMAL TRANSFUSION THRESHOLD DR GREY Problem List - Problems (1) Acute exacerbation of CHF (congestive heart failure) Code(s): I50.9 - HEART FAILURE, UNSPECIFIED (2) Acute on chronic systolic CHF (congestive heart failure) Code(s): I50.23 - ACUTE ON CHRONIC SYSTOLIC (CONGESTIVE) HEART FAILURE (3) Anemia Code(s): D64.9 - ANEMIA, UNSPECIFIED Qualifiers: Chronic kidney disease stage: unspecified stage (4) CAD (coronary artery disease) Code(s): I25.10 - ATHSCL HEART DISEASE OF [place] CORONARY ARTERY W/O ANG PCTRS Qualifiers: Coronary Disease-Associated Artery/Lesion type: [place] artery Associated angina: without angina (5) Elevated troponin Code(s): R74.8 - ABNORMAL LEVELS OF OTHER SERUM ENZYMES (6) Multiple myeloma Code(s): C90.00 - MULTIPLE MYELOMA NOT HAVING ACHIEVED REMISSION Qualifiers: Multiple myeloma remission status: not in remission Qualified Code(s): C90.00 - Multiple myeloma not having achieved remission (7) Respiratory insufficiency Code(s): R06.89 - OTHER ABNORMALITIES OF BREATHING (8) HLD (hyperlipidemia) Code(s): E78.5 - HYPERLIPIDEMIA, UNSPECIFIED Qualifiers: Hyperlipidemia type: unspecified Qualified Code(s): E78.5 - Hyperlipidemia , unspecified (9) HTN (hypertension) Code(s): I10 - ESSENTIAL (PRIMARY) HYPERTENSION Qualifiers: Hypertension type: essential hypertension Qualified Code(s): I10 - Essential (primary) hypertension (10) PAF (paroxysmal atrial fibrillation) Code(s): I48.0 - PAROXYSMAL ATRIAL FIBRILLATION (11) Multiple myeloma Code(s): C90.00 - MULTIPLE MYELOMA NOT HAVING ACHIEVED REMISSION (12) PHT (pulmonary hypertension) Code(s): I27.20 - PULMONARY HYPERTENSION, UNSPECIFIED (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
--- NOTE | 2019-01-03 15:19 | PN ---
Progress Note, Physician History of Present Illness: Pt seen and examined at bedside. She is getting a blood transfusion. She feels that her breathing is improved. - Current Medication List Current Medications: Active Medications Albuterol/Ipratropium (Duoneb -) 1 amp NEB Q6H PRN PRN Reason: SHORTNESS OF BREATH Last Admin: 01/01/19 20:52 Dose: 1 amp Allopurinol (Zyloprim -) 300 mg PO DAILY [facility] Last Admin: 01/03/19 09:59 Dose: 300 mg Aspirin (Asa -) 81 mg PO DAILY [facility] Last Admin: 01/03/19 09:59 Dose: 81 mg Atorvastatin Calcium (Lipitor -) 40 mg PO HS [facility] Last Admin: 01/02/19 22:41 Dose: 40 mg Atovaquone (Mepron -) 1,500 mg PO 0800 [facility] Last Admin: 01/03/19 09:58 Dose: 1,500 mg Clopidogrel Bisulfate (Plavix -) 75 mg PO DAILY [facility] Last Admin: 01/03/19 09:59 Dose: 75 mg Furosemide (Lasix Injection -) 40 mg 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 [facility] Stop: 01/03/19 22:00 Last Admin: 01/03/19 09:59 Dose: Not Given Heparin Sodium (Porcine) (Heparin -) 5,000 unit SQ BID [facility] Last Admin: 01/03/19 10:00 Dose: Not Given Hydrocortisone (Anusol 2.5% Hc Cream -) 1 applic [place] DAILY [facility] Levothyroxine Sodium (Synthroid -) 50 mcg PO DAILY@0700 [facility] Last Admin: 01/03/19 06:49 Dose: 50 mcg Metoprolol Succinate (Toprol Xl -) 12.5 mg PO DAILY [facility] Last Admin: 01/03/19 09:59 Dose: 12.5 mg Pantoprazole Sodium (Protonix -) 40 mg PO DAILY [facility] Last Admin: 01/03/19 09:59 Dose: 40 mg - Objective Vital Signs: Vital Signs Temperature 98.0 F 01/03/19 02:18 Pulse Rate 94 H 01/03/19 06:00 Respiratory Rate 18 01/03/19 09:00 Blood Pressure 111/71 01/03/19 06:00 O2 Sat by Pulse Oximetry (%) 97 01/03/19 09:00 Constitutional: Yes: Calm Eyes: Yes: Conjunctiva Clear HENT: Yes: Atraumatic Cardiovascular: Yes: S1, S2 Respiratory: Yes: On Nasal O2 Gastrointestinal: Yes: Soft Genitourinary: Yes: WNL Musculoskeletal: Yes: WNL Edema: Yes Edema: LLE: 1+, RLE: 1+ Neurological: Yes: Oriented Psychiatric: Yes: Oriented Labs: CBC, BMP 01/03/19 05:30 01/03/19 05:30 INR, PTT INR 1.18 (0.83-1.09) H 12/30/18 05:15 Problem List - Problems (1) CKD (chronic kidney disease) Code(s): N18.9 - CHRONIC KIDNEY DISEASE, UNSPECIFIED (2) Acute exacerbation of CHF (congestive heart failure) Code(s): I50.9 - HEART FAILURE, UNSPECIFIED Assessment/Plan Current Medications Generic Name Dose Route Start Last Admin Trade Name Freq PRN Reason Stop Dose Admin Albuterol/Ipratropium 1 amp 12/30/18 13:39 01/01/19 20:52 Duoneb - NEB 1 amp Q6H PRN Administration SHORTNESS OF BREATH Allopurinol 300 mg 12/30/18 13:45 01/03/19 09:59 Zyloprim - PO 300 mg DAILY [facility] Administration Aspirin 81 mg 12/30/18 14:00 01/03/19 09:59 Asa - PO 81 mg DAILY [facility] Administration Atorvastatin Calcium 40 mg 12/30/18 22:00 01/02/19 22:41 Lipitor - PO 40 mg HS [facility] Administration Atovaquone 1,500 mg 12/31/18 08:00 01/03/19 09:58 Mepron - PO 1,500 mg 0800 [facility] Administration Clopidogrel Bisulfate 75 mg 12/31/18 10:00 01/03/19 09:59 Plavix - PO 75 mg DAILY [facility] Administration Furosemide 40 mg 01/03/19 09:03 01/03/19 09:59 Lasix Injection - IVPUSH 01/03/19 22:00 Not Given 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 [employer]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[employer] [facility] Heparin Sodium (Porcine) 5,000 unit 12/30/18 22:00 01/03/19 10:00 Heparin - SQ Not Given BID [facility] Hydrocortisone 1 applic 01/04/19 10:00 Anusol 2.5% Hc Cream - RI DAILY [facility] Levothyroxine Sodium 50 mcg 12/31/18 07:00 01/03/19 06:49 Synthroid - PO 50 mcg DAILY@0700 [facility] Administration Metoprolol Succinate 12.5 mg 12/31/18 10:00 01/03/19 09:59 Toprol Xl - PO 12.5 mg DAILY [facility] Administration Pantoprazole Sodium 40 mg 12/30/18 13:45 01/03/19 09:59 Protonix - PO 40 mg DAILY [facility] Administration Impression 1. proteinuria 2. multiple myeloma 3. amyloid 4. fluid overload 5. hypotension 6. HLD 7. hypothyroidism 8. anemia 9. CKD Plan - cont with lasix - monitor hg - restart arb if bp permits, will cont to monitor - repeat labs in am - myeloma and amyloid can explain proteinuria
[2019-01-03 18:59] LABS: BASO % 0.1 % (0-2.0); EOS % 0.3 % (0-4.5); HEMATOCRIT 29.4 % (32.4-45.2); HEMOGLOBIN 10.1 GM/dL (10.7-15.3); MCH 31.1 pg (25.7-33.7); MCHC 34.2 g/dl (32.0-36.0); MEAN CELL VOLUME 90.9 fl (80-96); MEAN PLT VOLUME 9.8 fl (7.5-11.1); MONO % 11.6 % (3.8-10.2); PLATELET COUNT 144 K/MM3 (134-434); RBC 3.23 M/mm3 (3.60-5.2); RDW 18.7 % (11.6-15.6); WHITE BLOOD COUNT 5.2 K/mm3 (4.0-10.0)
[2019-01-03] MEDS ORDERED: ACETAMINOPHEN 325 MG TABLET (FP) PO PRN (20:10)
[2019-01-03] MEDS: ATORVASTATIN CA 40 MG TABLET (FP) PO SCH (21:26)
--- NOTE | 2019-01-03 21:52 | PN ---
Progress Note (short form) - Note Progress Note: PAtient seen nd examined Feels better Got PRBC transfusion/diuresis started losartacn small amount of rectal bleeding AFVSS Cor: RSR, No murmurs, No gallops Lungs: Clear to P&A Abd: Soft, Normal bowel sounds, No organomegaly Ext:No significant edema labs/eds reviewed a/p 73 y/o patient with myeloa/amyloid, recent coronary stents, on asa/plavix, now with CHF rectal bleeding/anemia---planning colonoscopy per gi.patient on aa/pavix. recent colonoscopy--poly? hemorrhoids transfused PRBCs sacral decubitus myeloma/amyloid --on velcade/cytoxa/dex diuresis/bp meds per renal/cardio
--- NOTE | 2019-01-03 22:02 | PN ---
Progress Note, Physician History of Present Illness: No new complaints - Current Medication List Current Medications: Active Medications Acetaminophen (Tylenol -) 650 mg PO Q6H PRN PRN Reason: PAIN Last Admin: 01/03/19 20:28 Dose: 650 mg Albuterol/Ipratropium (Duoneb -) 1 amp NEB Q6H PRN PRN Reason: SHORTNESS OF BREATH Last Admin: 01/01/19 20:52 Dose: 1 amp Allopurinol (Zyloprim -) 300 mg PO DAILY [facility] Last Admin: 01/03/19 09:59 Dose: 300 mg Aspirin (Asa -) 81 mg PO DAILY [facility] Last Admin: 01/03/19 09:59 Dose: 81 mg Atorvastatin Calcium (Lipitor -) 40 mg PO HS [facility] Last Admin: 01/03/19 21:26 Dose: 40 mg Atovaquone (Mepron -) 1,500 mg PO 0800 [facility] Last Admin: 01/03/19 09:58 Dose: 1,500 mg Clopidogrel Bisulfate (Plavix -) 75 mg PO DAILY [facility] Last Admin: 01/03/19 09:59 Dose: 75 mg Heparin Sodium (Porcine) (Heparin -) 5,000 unit SQ BID [facility] Last Admin: 01/03/19 21:27 Dose: Not Given Hydrocortisone (Anusol 2.5% Hc Cream -) 1 applic [place] DAILY [facility] Levothyroxine Sodium (Synthroid -) 50 mcg PO DAILY@0700 [facility] Last Admin: 01/03/19 06:49 Dose: 50 mcg Metoprolol Succinate (Toprol Xl -) 12.5 mg PO DAILY [facility] Last Admin: 01/03/19 09:59 Dose: 12.5 mg Pantoprazole Sodium (Protonix -) 40 mg PO DAILY [facility] Last Admin: 01/03/19 09:59 Dose: 40 mg - Objective Vital Signs: Vital Signs Temperature 98.6 F 01/03/19 18:30 Pulse Rate 103 H 01/03/19 18:30 Respiratory Rate 20 01/03/19 18:30 Blood Pressure 125/74 01/03/19 18:30 O2 Sat by Pulse Oximetry (%) 98 01/03/19 21:01 Neck: Yes: WNL, Supple Cardiovascular: Yes: WNL, Regular Rate and Rhythm Respiratory: Yes: WNL, Regular, CTA Bilaterally Gastrointestinal: Yes: WNL, Normal Bowel Sounds, Soft Edema: LLE: 1+, RLE: 1+ Labs: CBC, BMP 01/03/19 18:10 01/03/19 05:30 INR, PTT INR 1.18 (0.83-1.09) H 12/30/18 05:15 Problem List - Problems (1) Acute on chronic systolic CHF (congestive heart failure) Assessment/Plan: Cont PO lasix Monitor electrolytes Code(s): I50.23 - ACUTE ON CHRONIC SYSTOLIC (CONGESTIVE) HEART FAILURE (2) Acute respiratory failure Assessment/Plan: Due to volume overload Cont diuresis and monitor May need home o@ DC planning Code(s): J96.00 - ACUTE RESPIRATORY FAILURE, UNSP W HYPOXIA OR HYPERCAPNIA (3) Anemia Assessment/Plan: Rectal bleed due to rectal polyp S/P transfusion 1 unit PRBC's today Will need to try to hold off on colonoscopy and observe next 24-48 hrs Code(s): D64.9 - ANEMIA, UNSPECIFIED (4) CAD (coronary artery disease) Assessment/Plan: Cont plavix/asa S/P NSTEMI and stent placement Code(s): I25.10 - ATHSCL HEART DISEASE OF [place] CORONARY ARTERY W/O ANG PCTRS Qualifiers: Coronary Disease-Associated Artery/Lesion type: [place] artery Associated angina: without angina (5) CKD (chronic kidney disease) Assessment/Plan: Due to proteinuria/Multiple myeloma/amyloid As per renal Code(s): N18.9 - CHRONIC KIDNEY DISEASE, UNSPECIFIED (6) Multiple myeloma Assessment/Plan: As per onco Pt for chemotx on THU Code(s): C90.00 - MULTIPLE MYELOMA NOT HAVING ACHIEVED REMISSION Qualifiers: Multiple myeloma remission status: not in remission Qualified Code(s): C90.00 - Multiple myeloma not having achieved remission (7) HLD (hyperlipidemia) Assessment/Plan: Cont lipitor Code(s): E78.5 - HYPERLIPIDEMIA, UNSPECIFIED Qualifiers: Hyperlipidemia type: unspecified Qualified Code(s): E78.5 - Hyperlipidemia , unspecified (8) HTN (hypertension) Assessment/Plan: Cont metoprolol Code(s): I10 - ESSENTIAL (PRIMARY) HYPERTENSION Qualifiers: Hypertension type: essential hypertension Qualified Code(s): I10 - Essential (primary) hypertension (9) Hypothyroidism Code(s): E03.9 - HYPOTHYROIDISM, UNSPECIFIED Qualifiers: Hypothyroidism type: acquired Qualified Code(s): E03.9 - Hypothyroidism, unspecified
[2019-01-04] MEDS: LEVOTHYROXINE NA 50 MCG TABLET (FP) PO SCH (06:25)
[2019-01-04 07:08] LABS: BASO % 0.3 % (0-2.0); EOS % 1.5 % (0-4.5); HEMATOCRIT 27.2 % (32.4-45.2); HEMOGLOBIN 9.3 GM/dL (10.7-15.3); LYMPH % 28.8 % (8-40); MCH 30.8 pg (25.7-33.7); MCHC 34.1 g/dl (32.0-36.0); MEAN CELL VOLUME 90.3 fl (80-96); MEAN PLT VOLUME 9.5 fl (7.5-11.1); MONO % 11.6 % (3.8-10.2); NEUT % 57.8 % (42.8-82.8); PLATELET COUNT 135 K/MM3 (134-434); RBC 3.01 M/mm3 (3.60-5.2); RDW 18.2 % (11.6-15.6); WHITE BLOOD COUNT 4.4 K/mm3 (4.0-10.0)
[2019-01-04 07:19] LABS: ANION GAP 8 MMOL/L (8-16); BLOOD UREA NITROGEN 23 mg/dL (7-18); CALCIUM 8.6 mg/dL (8.5-10.1); CHLORIDE 99 mmol/L (98-107); CO2 29 mmol/L (21-32); CREATININE 1.2 mg/dL (0.55-1.3); GLUCOSE,RANDOM 84 mg/dL (74-106); POTASSIUM 3.3 mmol/L (3.5-5.1); SODIUM 137 mmol/L (136-145)
[2019-01-04] MEDS ORDERED: POTASSIUM CHLORIDE TABS 20 MEQ TABLET.ER (FP) PO ONE (07:46)
[2019-01-04] MEDS: ALBUTEROL SO4 2.5/IPRATROPIUM 0.5 INH SOL 3 ML VIAL.NEB. NEB PRN ×2 (08:34→20:35)
--- NOTE | 2019-01-04 08:56 | PN ---
Progress Note, Physician History of Present Illness: GI FOLLOW UP NOTE Patient examined and case discussed with Dr. Perkins Patient examined lying in bed. Patient denies having rectal bleeding during the night and sttes rectal pain has subsided. Patient denies abdominal pain, nausea, vomiting. - Current Medication List Current Medications: Active Medications Acetaminophen (Tylenol -) 650 mg PO Q6H PRN PRN Reason: PAIN Last Admin: 01/03/19 20:28 Dose: 650 mg Albuterol/Ipratropium (Duoneb -) 1 amp NEB Q6H PRN PRN Reason: SHORTNESS OF BREATH Last Admin: 01/04/19 08:34 Dose: 1 amp Allopurinol (Zyloprim -) 300 mg PO DAILY [facility] Last Admin: 01/03/19 09:59 Dose: 300 mg Aspirin (Asa -) 81 mg PO DAILY [facility] Last Admin: 01/03/19 09:59 Dose: 81 mg Atorvastatin Calcium (Lipitor -) 40 mg PO HS [facility] Last Admin: 01/03/19 21:26 Dose: 40 mg Atovaquone (Mepron -) 1,500 mg PO 0800 [facility] Last Admin: 01/03/19 09:58 Dose: 1,500 mg Clopidogrel Bisulfate (Plavix -) 75 mg PO DAILY [facility] Last Admin: 01/03/19 09:59 Dose: 75 mg Heparin Sodium (Porcine) (Heparin -) 5,000 unit SQ BID [facility] Last Admin: 01/03/19 21:27 Dose: Not Given Hydrocortisone (Anusol 2.5% Hc Cream -) 1 applic [place] DAILY [facility] Levothyroxine Sodium (Synthroid -) 50 mcg PO DAILY@0700 [facility] Last Admin: 01/04/19 06:25 Dose: 50 mcg Metoprolol Succinate (Toprol Xl -) 12.5 mg PO DAILY [facility] Last Admin: 01/03/19 09:59 Dose: 12.5 mg Pantoprazole Sodium (Protonix -) 40 mg PO DAILY [facility] Last Admin: 01/03/19 09:59 Dose: 40 mg - Objective Vital Signs: Vital Signs Temperature 98.2 F 01/04/19 05:28 Pulse Rate 103 H 01/04/19 05:28 Respiratory Rate 18 01/04/19 05:28 Blood Pressure 125/80 01/04/19 05:28 O2 Sat by Pulse Oximetry (%) 93 L 01/04/19 08:35 Constitutional: Yes: No Distress, Calm Eyes: Yes: Conjunctiva Clear HENT: Yes: Atraumatic Cardiovascular: Yes: Regular Rate and Rhythm Respiratory: Yes: Regular, On Nasal O2 Gastrointestinal: Yes: Normal Bowel Sounds, Soft, Other (non tender) Neurological: Yes: Alert, Oriented Psychiatric: Yes: Alert, Oriented Labs: CBC, BMP 01/04/19 05:30 01/04/19 05:30 INR, PTT INR 1.18 (0.83-1.09) H 12/30/18 05:15 Problem List - Problems (1) Rectal bleed Assessment/Plan: >monitor H/H daily >current Hg 9.3 >transfuse PRBC when Hg <8.0 >emergent CTA of Abdomen if profuse bleeding noted from rectum >patient to follow up with outside GI who performed colonoscopy 1 month ago Code(s): K62.5 - HEMORRHAGE OF ANUS AND RECTUM (2) Rectal pain Assessment/Plan: >annusol cream daily Code(s): K62.89 - OTHER SPECIFIED DISEASES OF ANUS AND RECTUM
--- NOTE | 2019-01-04 09:28 | PN ---
Progress Note, Physician Chief Complaint: Seen and examined on telemetry Feeling well Appropriate bump in H/H with transfusion Potassium slightly low, repleted by Dr. Hameed - Current Medication List Current Medications: Active Medications Acetaminophen (Tylenol -) 650 mg PO Q6H PRN PRN Reason: PAIN Last Admin: 01/03/19 20:28 Dose: 650 mg Albuterol/Ipratropium (Duoneb -) 1 amp NEB Q6H PRN PRN Reason: SHORTNESS OF BREATH Last Admin: 01/04/19 08:34 Dose: 1 amp Allopurinol (Zyloprim -) 300 mg PO DAILY [facility] Last Admin: 01/03/19 09:59 Dose: 300 mg Aspirin (Asa -) 81 mg PO DAILY [facility] Last Admin: 01/03/19 09:59 Dose: 81 mg Atorvastatin Calcium (Lipitor -) 40 mg PO HS [facility] Last Admin: 01/03/19 21:26 Dose: 40 mg Atovaquone (Mepron -) 1,500 mg PO 0800 [facility] Last Admin: 01/03/19 09:58 Dose: 1,500 mg Clopidogrel Bisulfate (Plavix -) 75 mg PO DAILY [facility] Last Admin: 01/03/19 09:59 Dose: 75 mg Heparin Sodium (Porcine) (Heparin -) 5,000 unit SQ BID [facility] Last Admin: 01/03/19 21:27 Dose: Not Given Hydrocortisone (Anusol 2.5% Hc Cream -) 1 applic [place] DAILY [facility] Levothyroxine Sodium (Synthroid -) 50 mcg PO DAILY@0700 [facility] Last Admin: 01/04/19 06:25 Dose: 50 mcg Metoprolol Succinate (Toprol Xl -) 12.5 mg PO DAILY [facility] Last Admin: 01/03/19 09:59 Dose: 12.5 mg Pantoprazole Sodium (Protonix -) 40 mg PO DAILY [facility] Last Admin: 01/03/19 09:59 Dose: 40 mg - Objective Vital Signs: Vital Signs Temperature 98.2 F 01/04/19 05:28 Pulse Rate 103 H 01/04/19 05:28 Respiratory Rate 18 01/04/19 05:28 Blood Pressure 125/80 01/04/19 05:28 O2 Sat by Pulse Oximetry (%) 93 L 01/04/19 08:35 Constitutional: Yes: No Distress, Calm Eyes: Yes: Conjunctiva Clear Cardiovascular: Yes: Regular Rate and Rhythm Respiratory: Yes: Other (Slightly decreased breath sounds b/l) Gastrointestinal: Yes: Soft (NT) Edema: Yes Edema: LLE: 1+, RLE: 1+ Neurological: Yes: Alert, Oriented ...Motor Strength: WNL Labs: CBC, BMP 01/04/19 05:30 01/04/19 05:30 INR, PTT INR 1.18 (0.83-1.09) H 12/30/18 05:15 Laboratory Tests 01/03/19 01/03/19 01/04/19 05:30 05:30 05:30 WBC 4.5 4.4 Hgb 7.8 L 9.3 L Hct 27.2 L Plt Count 146 135 Sodium 141 Potassium 3.5 BUN 28 H Creatinine 1.0 Calcium Magnesium 1.9 01/04/19 05:30 WBC Hgb Hct Plt Count Sodium 137 Potassium 3.3 L BUN 23 H Creatinine Calcium 8.6 Magnesium - ....Imaging EKG: Image Reviewed Problem List - Problems (1) Acute on chronic systolic CHF (congestive heart failure) Code(s): I50.23 - ACUTE ON CHRONIC SYSTOLIC (CONGESTIVE) HEART FAILURE (2) CAD (coronary artery disease) Code(s): I25.10 - ATHSCL HEART DISEASE OF [place] CORONARY ARTERY W/O ANG PCTRS Qualifiers: Coronary Disease-Associated Artery/Lesion type: [place] artery Associated angina: without angina (3) Multiple myeloma Code(s): C90.00 - MULTIPLE MYELOMA NOT HAVING ACHIEVED REMISSION Qualifiers: Multiple myeloma remission status: not in remission Qualified Code(s): C90.00 - Multiple myeloma not having achieved remission (4) Anemia Code(s): D64.9 - ANEMIA, UNSPECIFIED Qualifiers: Chronic kidney disease stage: unspecified stage (5) Elevated troponin I level Code(s): R74.8 - ABNORMAL LEVELS OF OTHER SERUM ENZYMES Assessment/Plan IMP: Acute on chronic systolic CHF Cardiomyopathy, mild LV systolic dysfunction Recent NSTEMI s/p HOLLY D1 Multiple myeloma on chemotherapy Chronic Anemia- guaiac negative, but known rectal polyp REC: 1. Clinically improved with several days lasix gtts: now switched to PO 40mg BID. 2. Continue low dose Toprol, tolerated well (CAD/CHF w/ mild LV dysfx). 3. Strict Is/Os (higgins), daily weights and daily BMP to monitor renal fxn. 4. Will try to initiate ELLYN or ARB this admission if BP allows. 5. To continue ASA/Plavix/Atorvastatin s/p recent NSTEMI w/ HOLLY to D1 (new generation HOLLY will require Plavix for 3 months, ASA lifelong) 6. Supplimental O2 7. Appropriate bump in H/H after 1UPRBCs. No further bleeding overnight. Monitor H/H Will need to remain on DAPT for at least 3 months (recent NSTEMI and HOLLY). If removal of rectal polyp can be held until then may be optimal. This depends on clinical course. 8. Repleting K+
[2019-01-04] MEDS: HEPARIN NA (PORCINE) 5,000 UNITS/ML 1ML VIAL SQ SCH ×2 (10:08→21:23)
[2019-01-04] MEDS: HYDROCORTISONE 2.5% TOPICAL CREAM 30 GM TUBE PR SCH (10:08)
[2019-01-04] MEDS: CLOPIDOGREL BISULFATE 75 MG TABLET (FP) PO SCH (10:08)
[2019-01-04] MEDS: ATOVAQUONE 750 MG/5 ML (UNIT-DOSE PACKAGING) PO SCH (10:08)
[2019-01-04] MEDS: ALLOPURINOL 300 MG TABLET (FP) PO SCH (10:08)
[2019-01-04] MEDS: metoPROLOL SUCCINATE 25 MG TAB.SR.24H (FP) PO SCH (10:08)
[2019-01-04] MEDS: PANTOPRAZOLE 40 MG TABLET (FP) PO SCH (10:08)
[2019-01-04] MEDS: ASPIRIN 81 MG CHEWABLE TABLETS PO SCH (10:08)
--- NOTE | 2019-01-04 11:33 | PN ---
Progress Note, Physician History of Present Illness: pulmonary alert,feeling better,less dyspneic - Current Medication List Current Medications: Active Medications Acetaminophen (Tylenol -) 650 mg PO Q6H PRN PRN Reason: PAIN Last Admin: 01/03/19 20:28 Dose: 650 mg Albuterol/Ipratropium (Duoneb -) 1 amp NEB Q6H PRN PRN Reason: SHORTNESS OF BREATH Last Admin: 01/04/19 08:34 Dose: 1 amp Allopurinol (Zyloprim -) 300 mg PO DAILY [facility] Last Admin: 01/04/19 10:08 Dose: 300 mg Aspirin (Asa -) 81 mg PO DAILY [facility] Last Admin: 01/04/19 10:08 Dose: 81 mg Atorvastatin Calcium (Lipitor -) 40 mg PO HS [facility] Last Admin: 01/03/19 21:26 Dose: 40 mg Atovaquone (Mepron -) 1,500 mg PO 0800 [facility] Last Admin: 01/04/19 10:08 Dose: 1,500 mg Clopidogrel Bisulfate (Plavix -) 75 mg PO DAILY [facility] Last Admin: 01/04/19 10:08 Dose: 75 mg Furosemide (Lasix -) 40 mg PO BID@0600,1400 [facility] Heparin Sodium (Porcine) (Heparin -) 5,000 unit SQ BID [facility] Last Admin: 01/04/19 10:08 Dose: Not Given Hydrocortisone (Anusol 2.5% Hc Cream -) 1 applic [place] DAILY [facility] Last Admin: 01/04/19 10:08 Dose: Not Given Levothyroxine Sodium (Synthroid -) 50 mcg PO DAILY@0700 [facility] Last Admin: 01/04/19 06:25 Dose: 50 mcg Metoprolol Succinate (Toprol Xl -) 12.5 mg PO DAILY [facility] Last Admin: 01/04/19 10:08 Dose: 12.5 mg Pantoprazole Sodium (Protonix -) 40 mg PO DAILY [facility] Last Admin: 01/04/19 10:08 Dose: 40 mg - Objective Vital Signs: Vital Signs Temperature 98.2 F 01/04/19 05:28 Pulse Rate 112 H 01/04/19 09:47 Respiratory Rate 18 01/04/19 09:47 Blood Pressure 110/61 01/04/19 09:47 O2 Sat by Pulse Oximetry (%) 93 L 01/04/19 08:35 Constitutional: Yes: Well Nourished, Calm Eyes: Yes: WNL HENT: Yes: WNL Neck: Yes: WNL Cardiovascular: Yes: Regular Rate and Rhythm, S1 Respiratory: Yes: Rales (bibasilar rales R>L) Gastrointestinal: Yes: Normal Bowel Sounds, Soft Extremities: Yes: WNL Edema: Yes Labs: CBC, BMP 01/04/19 05:30 01/04/19 05:30 INR, PTT INR 1.18 (0.83-1.09) H 12/30/18 05:15 Problem List - Problems (1) Acute exacerbation of CHF (congestive heart failure) Code(s): I50.9 - HEART FAILURE, UNSPECIFIED (2) Acute on chronic systolic CHF (congestive heart failure) Code(s): I50.23 - ACUTE ON CHRONIC SYSTOLIC (CONGESTIVE) HEART FAILURE (3) Anemia Code(s): D64.9 - ANEMIA, UNSPECIFIED Qualifiers: Chronic kidney disease stage: unspecified stage (4) CAD (coronary artery disease) Code(s): I25.10 - ATHSCL HEART DISEASE OF [place] CORONARY ARTERY W/O ANG PCTRS Qualifiers: Coronary Disease-Associated Artery/Lesion type: [place] artery Associated angina: without angina (5) Elevated troponin Code(s): R74.8 - ABNORMAL LEVELS OF OTHER SERUM ENZYMES (6) Multiple myeloma Code(s): C90.00 - MULTIPLE MYELOMA NOT HAVING ACHIEVED REMISSION Qualifiers: Multiple myeloma remission status: not in remission Qualified Code(s): C90.00 - Multiple myeloma not having achieved remission (7) Respiratory insufficiency Code(s): R06.89 - OTHER ABNORMALITIES OF BREATHING (8) HLD (hyperlipidemia) Code(s): E78.5 - HYPERLIPIDEMIA, UNSPECIFIED Qualifiers: Hyperlipidemia type: unspecified Qualified Code(s): E78.5 - Hyperlipidemia , unspecified (9) HTN (hypertension) Code(s): I10 - ESSENTIAL (PRIMARY) HYPERTENSION Qualifiers: Hypertension type: essential hypertension Qualified Code(s): I10 - Essential (primary) hypertension (10) PAF (paroxysmal atrial fibrillation) Code(s): I48.0 - PAROXYSMAL ATRIAL FIBRILLATION (11) Multiple myeloma Code(s): C90.00 - MULTIPLE MYELOMA NOT HAVING ACHIEVED REMISSION (12) PHT (pulmonary hypertension) Code(s): I27.20 - PULMONARY HYPERTENSION, UNSPECIFIED (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 Assessment/Plan IMP ACUTE RESPIRATORY FAILURE IMPROVING ACUTE ON CHRONIC CHF IMPROVING CARDIOMYOPATHY ASHD S/P NSTEMI,S/P HOLLY STENT 12/21 MYELOMA /AMYLOIDOSIS ON CHEMO PULMONARY HTN ANEMIA H/O GI BLEED +TROPONIN PLAN IV LASIX O2 NIPPV NEEDED F/U CHEST X-RAYS DAILY WT MONITOR LYTES MONITOR H+H NORMAL TRANSFUSION THRESHOLD DR GREY Problem List - Problems (1) Acute exacerbation of CHF (congestive heart failure) Code(s): I50.9 - HEART FAILURE, UNSPECIFIED (2) Acute on chronic systolic CHF (congestive heart failure) Code(s): I50.23 - ACUTE ON CHRONIC SYSTOLIC (CONGESTIVE) HEART FAILURE (3) Anemia Code(s): D64.9 - ANEMIA, UNSPECIFIED Qualifiers: Chronic kidney disease stage: unspecified stage (4) CAD (coronary artery disease) Code(s): I25.10 - ATHSCL HEART DISEASE OF [place] CORONARY ARTERY W/O ANG PCTRS Qualifiers: Coronary Disease-Associated Artery/Lesion type: [place] artery Associated angina: without angina (5) Elevated troponin Code(s): R74.8 - ABNORMAL LEVELS OF OTHER SERUM ENZYMES (6) Multiple myeloma Code(s): C90.00 - MULTIPLE MYELOMA NOT HAVING ACHIEVED REMISSION Qualifiers: Multiple myeloma remission status: not in remission Qualified Code(s): C90.00 - Multiple myeloma not having achieved remission (7) Respiratory insufficiency Code(s): R06.89 - OTHER ABNORMALITIES OF BREATHING (8) HLD (hyperlipidemia) Code(s): E78.5 - HYPERLIPIDEMIA, UNSPECIFIED Qualifiers: Hyperlipidemia type: unspecified Qualified Code(s): E78.5 - Hyperlipidemia , unspecified (9) HTN (hypertension) Code(s): I10 - ESSENTIAL (PRIMARY) HYPERTENSION Qualifiers: Hypertension type: essential hypertension Qualified Code(s): I10 - Essential (primary) hypertension (10) PAF (paroxysmal atrial fibrillation) Code(s): I48.0 - PAROXYSMAL ATRIAL FIBRILLATION (11) Multiple myeloma Code(s): C90.00 - MULTIPLE MYELOMA NOT HAVING ACHIEVED REMISSION (12) PHT (pulmonary hypertension) Code(s): I27.20 - PULMONARY HYPERTENSION, UNSPECIFIED (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
[2019-01-04] MEDS: FUROSEMIDE 40 MG TABLET (FP) PO SCH (13:11)
--- NOTE | 2019-01-04 14:29 | PN ---
Progress Note, Physician History of Present Illness: Pt seen and examined at bedside. She is awake and alert. She has shortness of breath. - Current Medication List Current Medications: Active Medications Acetaminophen (Tylenol -) 650 mg PO Q6H PRN PRN Reason: PAIN Last Admin: 01/03/19 20:28 Dose: 650 mg Albuterol/Ipratropium (Duoneb -) 1 amp NEB Q6H PRN PRN Reason: SHORTNESS OF BREATH Last Admin: 01/04/19 08:34 Dose: 1 amp Allopurinol (Zyloprim -) 300 mg PO DAILY [facility] Last Admin: 01/04/19 10:08 Dose: 300 mg Aspirin (Asa -) 81 mg PO DAILY [facility] Last Admin: 01/04/19 10:08 Dose: 81 mg Atorvastatin Calcium (Lipitor -) 40 mg PO HS [facility] Last Admin: 01/03/19 21:26 Dose: 40 mg Atovaquone (Mepron -) 1,500 mg PO 0800 [facility] Last Admin: 01/04/19 10:08 Dose: 1,500 mg Clopidogrel Bisulfate (Plavix -) 75 mg PO DAILY [facility] Last Admin: 01/04/19 10:08 Dose: 75 mg Furosemide (Lasix -) 40 mg PO BID@0600,1400 [facility] Last Admin: 01/04/19 13:11 Dose: 40 mg Heparin Sodium (Porcine) (Heparin -) 5,000 unit SQ BID [facility] Last Admin: 01/04/19 10:08 Dose: Not Given Hydrocortisone (Anusol 2.5% Hc Cream -) 1 applic [place] DAILY [facility] Last Admin: 01/04/19 10:08 Dose: Not Given Levothyroxine Sodium (Synthroid -) 50 mcg PO DAILY@0700 [facility] Last Admin: 01/04/19 06:25 Dose: 50 mcg Metoprolol Succinate (Toprol Xl -) 12.5 mg PO DAILY [facility] Last Admin: 01/04/19 10:08 Dose: 12.5 mg Pantoprazole Sodium (Protonix -) 40 mg PO DAILY [facility] Last Admin: 01/04/19 10:08 Dose: 40 mg - Objective Vital Signs: Vital Signs Temperature 98.2 F 01/04/19 05:28 Pulse Rate 112 H 01/04/19 09:47 Respiratory Rate 18 01/04/19 09:47 Blood Pressure 110/61 01/04/19 09:47 O2 Sat by Pulse Oximetry (%) 98 01/04/19 09:00 Constitutional: Yes: Calm Eyes: Yes: Conjunctiva Clear HENT: Yes: Atraumatic Neck: Yes: Supple Cardiovascular: Yes: S1, S2 Respiratory: Yes: On Nasal O2 Gastrointestinal: Yes: Soft Genitourinary: Yes: WNL Edema: Yes Edema: LLE: 2+, RLE: 2+ Neurological: Yes: Oriented Psychiatric: Yes: Oriented Labs: CBC, BMP 01/04/19 05:30 01/04/19 05:30 INR, PTT INR 1.18 (0.83-1.09) H 12/30/18 05:15 Problem List - Problems (1) CKD (chronic kidney disease) Code(s): N18.9 - CHRONIC KIDNEY DISEASE, UNSPECIFIED (2) Acute exacerbation of CHF (congestive heart failure) Code(s): I50.9 - HEART FAILURE, UNSPECIFIED Assessment/Plan Current Medications Generic Name Dose Route Start Last Admin Trade Name Freq PRN Reason Stop Dose Admin Acetaminophen 650 mg 01/03/19 20:10 01/03/19 20:28 Tylenol - PO 650 mg Q6H PRN Administration PAIN Albuterol/Ipratropium 1 amp 12/30/18 13:39 01/04/19 08:34 Duoneb - NEB 1 amp Q6H PRN Administration SHORTNESS OF BREATH Allopurinol 300 mg 12/30/18 13:45 01/04/19 10:08 Zyloprim - PO 300 mg DAILY [facility] Administration Aspirin 81 mg 12/30/18 14:00 01/04/19 10:08 Asa - PO 81 mg DAILY [facility] Administration Atorvastatin Calcium 40 mg 12/30/18 22:00 01/03/19 21:26 Lipitor - PO 40 mg HS [facility] Administration Atovaquone 1,500 mg 12/31/18 08:00 01/04/19 10:08 Mepron - PO 1,500 mg 0800 [facility] Administration Clopidogrel Bisulfate 75 mg 12/31/18 10:00 01/04/19 10:08 Plavix - PO 75 mg DAILY [facility] Administration Furosemide 40 mg 01/04/19 14:00 01/04/19 13:11 Lasix - PO 40 mg BID@0600,1400 [facility] Administration Heparin Sodium (Porcine) 5,000 unit 12/30/18 22:00 01/04/19 10:08 Heparin - SQ Not Given BID [facility] Hydrocortisone 1 applic 01/04/19 10:00 01/04/19 10:08 Anusol 2.5% Hc Cream - AR Not Given DAILY [facility] Levothyroxine Sodium 50 mcg 12/31/18 07:00 01/04/19 06:25 Synthroid - PO 50 mcg DAILY@0700 [facility] Administration Metoprolol Succinate 12.5 mg 12/31/18 10:00 01/04/19 10:08 Toprol Xl - PO 12.5 mg DAILY [facility] Administration Pantoprazole Sodium 40 mg 12/30/18 13:45 01/04/19 10:08 Protonix - PO 40 mg DAILY [facility] Administration Impression 1. proteinuria 2. multiple myeloma 3. amyloid 4. fluid overload 5. hypotension 6. HLD 7. hypothyroidism 8. anemia 9. CKD Plan - replace potassium - cont lasix - monitor hg - cont to monitor bmp - restart arb if bp permits, will cont to monitor
[2019-01-04] MEDS: ATORVASTATIN CA 40 MG TABLET (FP) PO SCH (21:23)
--- NOTE | 2019-01-04 23:26 | PN ---
Progress Note, Physician History of Present Illness: No new complaints - Current Medication List Current Medications: Active Medications Acetaminophen (Tylenol -) 650 mg PO Q6H PRN PRN Reason: PAIN Last Admin: 01/03/19 20:28 Dose: 650 mg Albuterol/Ipratropium (Duoneb -) 1 amp NEB Q6H PRN PRN Reason: SHORTNESS OF BREATH Last Admin: 01/04/19 20:35 Dose: 1 amp Allopurinol (Zyloprim -) 300 mg PO DAILY [facility] Last Admin: 01/04/19 10:08 Dose: 300 mg Aspirin (Asa -) 81 mg PO DAILY [facility] Last Admin: 01/04/19 10:08 Dose: 81 mg Atorvastatin Calcium (Lipitor -) 40 mg PO HS [facility] Last Admin: 01/04/19 21:23 Dose: 40 mg Atovaquone (Mepron -) 1,500 mg PO 0800 [facility] Last Admin: 01/04/19 10:08 Dose: 1,500 mg Clopidogrel Bisulfate (Plavix -) 75 mg PO DAILY [facility] Last Admin: 01/04/19 10:08 Dose: 75 mg Furosemide (Lasix -) 40 mg PO BID@0600,1400 [facility] Last Admin: 01/04/19 13:11 Dose: 40 mg Heparin Sodium (Porcine) (Heparin -) 5,000 unit SQ BID [facility] Last Admin: 01/04/19 21:23 Dose: 5,000 unit Hydrocortisone (Anusol 2.5% Hc Cream -) 1 applic [place] DAILY [facility] Last Admin: 01/04/19 10:08 Dose: Not Given Levothyroxine Sodium (Synthroid -) 50 mcg PO DAILY@0700 [facility] Last Admin: 01/04/19 06:25 Dose: 50 mcg Metoprolol Succinate (Toprol Xl -) 12.5 mg PO DAILY [facility] Last Admin: 01/04/19 10:08 Dose: 12.5 mg Pantoprazole Sodium (Protonix -) 40 mg PO DAILY [facility] Last Admin: 01/04/19 10:08 Dose: 40 mg - Objective Vital Signs: Vital Signs Temperature 98.2 F 01/04/19 21:00 Pulse Rate 98 H 01/04/19 21:00 Respiratory Rate 20 01/04/19 21:00 Blood Pressure 125/76 01/04/19 21:00 O2 Sat by Pulse Oximetry (%) 99 01/04/19 21:00 Neck: Yes: WNL, Supple Cardiovascular: Yes: WNL, Regular Rate and Rhythm Respiratory: Yes: Diminished Gastrointestinal: Yes: WNL, Normal Bowel Sounds, Soft Edema: LLE: 1+, RLE: 1+ Labs: CBC, BMP 01/04/19 05:30 01/04/19 05:30 INR, PTT INR 1.18 (0.83-1.09) H 12/30/18 05:15 Problem List - Problems (1) Acute on chronic systolic CHF (congestive heart failure) Assessment/Plan: Cont PO lasix Monitor electrolytes As per cardio ARB to be added Code(s): I50.23 - ACUTE ON CHRONIC SYSTOLIC (CONGESTIVE) HEART FAILURE (2) Acute respiratory failure Assessment/Plan: Due to volume overload Cont diuresis and monitor May need home O2 Code(s): J96.00 - ACUTE RESPIRATORY FAILURE, UNSP W HYPOXIA OR HYPERCAPNIA (3) Anemia Assessment/Plan: Rectal bleed due to rectal polyp S/P transfusion 1 unit PRBC's Will need to try to hold off on colonoscopy H/H remains stable Code(s): D64.9 - ANEMIA, UNSPECIFIED (4) CAD (coronary artery disease) Assessment/Plan: Cont plavix/asa S/P NSTEMI and stent placement Code(s): I25.10 - ATHSCL HEART DISEASE OF [place] CORONARY ARTERY W/O ANG PCTRS Qualifiers: Coronary Disease-Associated Artery/Lesion type: [place] artery Associated angina: without angina (5) CKD (chronic kidney disease) Assessment/Plan: Due to proteinuria/Multiple myeloma/amyloid As per renal Code(s): N18.9 - CHRONIC KIDNEY DISEASE, UNSPECIFIED (6) Multiple myeloma Code(s): C90.00 - MULTIPLE MYELOMA NOT HAVING ACHIEVED REMISSION Qualifiers: Multiple myeloma remission status: not in remission Qualified Code(s): C90.00 - Multiple myeloma not having achieved remission (7) HLD (hyperlipidemia) Code(s): E78.5 - HYPERLIPIDEMIA, UNSPECIFIED Qualifiers: Hyperlipidemia type: unspecified Qualified Code(s): E78.5 - Hyperlipidemia , unspecified (8) HTN (hypertension) Code(s): I10 - ESSENTIAL (PRIMARY) HYPERTENSION Qualifiers: Hypertension type: essential hypertension Qualified Code(s): I10 - Essential (primary) hypertension (9) Hypothyroidism Code(s): E03.9 - HYPOTHYROIDISM, UNSPECIFIED Qualifiers: Hypothyroidism type: acquired Qualified Code(s): E03.9 - Hypothyroidism, unspecified
[2019-01-05] MEDS: ALBUTEROL SO4 2.5/IPRATROPIUM 0.5 INH SOL 3 ML VIAL.NEB. NEB PRN (06:03)
[2019-01-05] MEDS: FUROSEMIDE 40 MG TABLET (FP) PO SCH ×2 (06:16→13:34)
[2019-01-05] MEDS: LEVOTHYROXINE NA 50 MCG TABLET (FP) PO SCH (06:16)
[2019-01-05 06:45] LABS: BASO % 0.2 % (0-2.0); EOS % 0.9 % (0-4.5); HEMATOCRIT 27.1 % (32.4-45.2); HEMOGLOBIN 9.1 GM/dL (10.7-15.3); LYMPH % 25.6 % (8-40); MCH 30.4 pg (25.7-33.7); MCHC 33.7 g/dl (32.0-36.0); MEAN CELL VOLUME 90.4 fl (80-96); MEAN PLT VOLUME 9.3 fl (7.5-11.1); MONO % 12.2 % (3.8-10.2); NEUT % 61.1 % (42.8-82.8); PLATELET COUNT 133 K/MM3 (134-434); RDW 19.2 % (11.6-15.6); WHITE BLOOD COUNT 4.8 K/mm3 (4.0-10.0)
[2019-01-05 07:27] LABS: ALBUMIN 1.6 g/dl (3.4-5.0); ALK PHOS 53 U/L (45-117); ANION GAP 9 MMOL/L (8-16); BILIRUBIN,TOTAL 0.5 mg/dL (0.2-1); BLOOD UREA NITROGEN 17 mg/dL (7-18); CALCIUM 8.5 mg/dL (8.5-10.1); CHLORIDE 101 mmol/L (98-107); CO2 28 mmol/L (21-32); CREATININE 0.8 mg/dL (0.55-1.3); GLUCOSE,RANDOM 87 mg/dL (74-106); MAGNESIUM 1.9 mg/dL (1.8-2.4); POTASSIUM 3.5 mmol/L (3.5-5.1); SGOT/AST 21 U/L (15-37); SGPT/ALT 17 U/L (13-61); SODIUM 138 mmol/L (136-145); TOT PROT 7.2 g/dl (6.4-8.2)
--- NOTE | 2019-01-05 08:58 | PN ---
Progress Note, Physician Chief Complaint: seen and examined on TELE: NSR, NSST changes - Current Medication List Current Medications: Active Medications Acetaminophen (Tylenol -) 650 mg PO Q6H PRN PRN Reason: PAIN Last Admin: 01/03/19 20:28 Dose: 650 mg Albuterol/Ipratropium (Duoneb -) 1 amp NEB Q6H PRN PRN Reason: SHORTNESS OF BREATH Last Admin: 01/05/19 06:03 Dose: 1 amp Allopurinol (Zyloprim -) 300 mg PO DAILY [facility]EDS [facility] Last Admin: 01/04/19 10:08 Dose: 300 mg Aspirin (Asa -) 81 mg PO DAILY [facility] 234 [facility]S [facility] Last Admin: 01/04/19 10:08 Dose: 81 mg Atorvastatin Calcium (Lipitor -) 40 mg PO HS [facility] 234 B[facility]S [facility] Last Admin: 01/04/19 21:23 Dose: 40 mg Atovaquone (Mepron -) 1,500 mg PO 0800 [facility] 234 [facility]S [facility] Last Admin: 01/04/19 10:08 Dose: 1,500 mg Clopidogrel Bisulfate (Plavix -) 75 mg PO DAILY [facility] 234 B[facility]S [facility] Last Admin: 01/04/19 10:08 Dose: 75 mg Furosemide (Lasix -) 40 mg PO BID@0600,1400 [facility] 234 [facility]S [facility] Last Admin: 01/05/19 06:16 Dose: 40 mg Heparin Sodium (Porcine) (Heparin -) 5,000 unit SQ BID [facility] 234 B[facility]S [facility] Last Admin: 01/04/19 21:23 Dose: 5,000 unit Hydrocortisone (Anusol 2.5% Hc Cream -) 1 applic [place] DAILY [facility] 234 BEDS [facility] Last Admin: 01/04/19 10:08 Dose: Not Given Levothyroxine Sodium (Synthroid -) 50 mcg PO DAILY@0700 [facility] 234 BEDS [facility] Last Admin: 01/05/19 06:16 Dose: 50 mcg Metoprolol Succinate (Toprol Xl -) 12.5 mg PO DAILY [facility] 234 BEDS [facility] Last Admin: 01/04/19 10:08 Dose: 12.5 mg Pantoprazole Sodium (Protonix -) 40 mg PO DAILY [facility] 234 BEDS [facility] Last Admin: 01/04/19 10:08 Dose: 40 mg - Objective Vital Signs: Vital Signs Temperature 98 F 01/05/19 05:30 Pulse Rate 107 H 01/05/19 05:30 Respiratory Rate 20 01/05/19 08:37 Blood Pressure 122/83 01/05/19 05:30 O2 Sat by Pulse Oximetry (%) 98 03/06/19 08:37 Constitutional: Yes: No Distress, Calm Cardiovascular: Yes: Regular Rate and Rhythm Respiratory: Yes: CTA Bilaterally, Other (Lungs are clear with only slight decreased breath sounds at bases. No active wheezing.) Gastrointestinal: Yes: Soft, Hepatomegaly Edema: No Neurological: Yes: Alert, Oriented ...Motor Strength: WNL Psychiatric: Yes: WNL Labs: CBC, BMP 01/05/19 05:30 01/05/19 05:30 INR, PTT INR 1.18 (0.83-1.09) H 12/30/18 05:15 Laboratory Tests 01/05/19 01/05/19 05:30 05:30 WBC 4.8 Hgb 9.1 L Plt Count 133 L Sodium 138 Potassium 3.5 BUN 17 Creatinine 0.8 Random Glucose 87 Calcium 8.5 Magnesium 1.9 Total Bilirubin 0.5 AST 21 ALT 17 Alkaline Phosphatase 53 - ....Imaging EKG: Image Reviewed (NSR, NSST) Problem List - Problems (1) Acute on chronic systolic CHF (congestive heart failure) Code(s): I50.23 - ACUTE ON CHRONIC SYSTOLIC (CONGESTIVE) HEART FAILURE (2) CAD (coronary artery disease) Code(s): I25.10 - ATHSCL HEART DISEASE OF [place] CORONARY ARTERY W/O ANG PCTRS Qualifiers: Coronary Disease-Associated Artery/Lesion type: [place] artery Associated angina: without angina (3) Multiple myeloma Code(s): C90.00 - MULTIPLE MYELOMA NOT HAVING ACHIEVED REMISSION Qualifiers: Multiple myeloma remission status: not in remission Qualified Code(s): C90.00 - Multiple myeloma not having achieved remission (4) Anemia Code(s): D64.9 - ANEMIA, UNSPECIFIED Qualifiers: Chronic kidney disease stage: unspecified stage (5) Elevated troponin I level Code(s): R74.8 - ABNORMAL LEVELS OF OTHER SERUM ENZYMES Assessment/Plan IMP: Acute on chronic systolic CHF Cardiomyopathy, mild LV systolic dysfunction Recent NSTEMI s/p HOLLY D1 Multiple myeloma on chemotherapy Chronic Anemia- guaiac negative, but known rectal polyp REC: 1. Clinically improved with several days lasix gtts: now switched to PO 40mg BID and remains stable after 24 hours of oral therapy 2. Continue low dose Toprol, tolerated well (CAD/CHF w/ mild LV dysfx). 3. Outpatient initiation of ELLYN or ARB. 4. To continue ASA/Plavix/Atorvastatin s/p recent NSTEMI w/ HOLLY to D1 (new generation HOLLY will require Plavix for 3 months, ASA lifelong). Will need to remain on DAPT for at least 3 months (recent NSTEMI and HOLLY). If removal of rectal polyp can be held until then may be optimal. This depends on clinical course. 5. Pre and post exercise O2 sat to assess for need for home O2 6. Discharge planning. March d/c tele.
--- NOTE | 2019-01-05 09:27 | PN ---
Progress Note, Physician History of Present Illness: GI FOLLOW UP NOTE Patient examined and case discussed with Dr. Perkins Patient examined lying in bed. Patient denies further episodes of rectal bleeding. Patient states rectal pain has diminished since starting annusol cream. Patient denies abdominal pain, nausea, vomiting, diarrhea, or rectal bleeding. - Current Medication List Current Medications: Active Medications Acetaminophen (Tylenol -) 650 mg PO Q6H PRN PRN Reason: PAIN Last Admin: 01/03/19 20:28 Dose: 650 mg Albuterol/Ipratropium (Duoneb -) 1 amp NEB Q6H PRN PRN Reason: SHORTNESS OF BREATH Last Admin: 01/05/19 06:03 Dose: 1 amp Allopurinol (Zyloprim -) 300 mg PO DAILY [facility] Last Admin: 01/04/19 10:08 Dose: 300 mg Aspirin (Asa -) 81 mg PO DAILY [facility] Last Admin: 01/04/19 10:08 Dose: 81 mg Atorvastatin Calcium (Lipitor -) 40 mg PO HS [facility] Last Admin: 01/04/19 21:23 Dose: 40 mg Atovaquone (Mepron -) 1,500 mg PO 0800 [facility] Last Admin: 01/04/19 10:08 Dose: 1,500 mg Clopidogrel Bisulfate (Plavix -) 75 mg PO DAILY [facility] Last Admin: 01/04/19 10:08 Dose: 75 mg Furosemide (Lasix -) 40 mg PO BID@0600,1400 [facility] Last Admin: 01/05/19 06:16 Dose: 40 mg Heparin Sodium (Porcine) (Heparin -) 5,000 unit SQ BID [facility] Last Admin: 01/04/19 21:23 Dose: 5,000 unit Hydrocortisone (Anusol 2.5% Hc Cream -) 1 applic [place] DAILY [facility] Last Admin: 01/04/19 10:08 Dose: Not Given Levothyroxine Sodium (Synthroid -) 50 mcg PO DAILY@0700 [facility] Last Admin: 01/05/19 06:16 Dose: 50 mcg Metoprolol Succinate (Toprol Xl -) 12.5 mg PO DAILY [facility] Last Admin: 01/04/19 10:08 Dose: 12.5 mg Pantoprazole Sodium (Protonix -) 40 mg PO DAILY [facility] Last Admin: 01/04/19 10:08 Dose: 40 mg - Objective Vital Signs: Vital Signs Temperature 98 F 01/05/19 05:30 Pulse Rate 107 H 01/05/19 05:30 Respiratory Rate 20 01/05/19 08:37 Blood Pressure 122/83 01/05/19 05:30 O2 Sat by Pulse Oximetry (%) 98 01/05/19 08:37 Constitutional: Yes: No Distress, Calm Eyes: Yes: Conjunctiva Clear HENT: Yes: Atraumatic Cardiovascular: Yes: Regular Rate and Rhythm Respiratory: Yes: CTA Bilaterally, On Nasal O2 Gastrointestinal: Yes: Normal Bowel Sounds, Soft, Other (non tender). No: WNL, Abdomen, Obese, Ascites, Distention, Hematemesis, Hemorrhoids, Hepatomegaly, Hernia, Hyperactive Bowel Sounds, Hypoactive Bowel Sounds, Melena, Palpable Mass , Pulsatile Mass, Rectal Bleeding, Splenomegaly, Tenderness, Tenderness, Epigastrium, Tenderness, Rebound, Vomiting Neurological: Yes: Alert, Oriented Labs: CBC, BMP 01/05/19 05:30 01/05/19 05:30 INR, PTT INR 1.18 (0.83-1.09) H 12/30/18 05:15 Problem List - Problems (1) Rectal bleed Assessment/Plan: >monitor H/H daily >current Hg 9.1 >transfuse PRBC when Hg <8.0 >emergent CTA of Abdomen if profuse bleeding noted from rectum >patient instructed to follow up with GI as outpatient for further managament Code(s): K62.5 - HEMORRHAGE OF ANUS AND RECTUM (2) Rectal pain Assessment/Plan: >continue with annusol cream daily Code(s): K62.89 - OTHER SPECIFIED DISEASES OF ANUS AND RECTUM
[2019-01-05] MEDS: CLOPIDOGREL BISULFATE 75 MG TABLET (FP) PO SCH (09:44)
[2019-01-05] MEDS: HYDROCORTISONE 2.5% TOPICAL CREAM 30 GM TUBE PR SCH (09:44)
[2019-01-05] MEDS: ATOVAQUONE 750 MG/5 ML (UNIT-DOSE PACKAGING) PO SCH (09:44)
[2019-01-05] MEDS: metoPROLOL SUCCINATE 25 MG TAB.SR.24H (FP) PO SCH (09:45)
[2019-01-05] MEDS: ASPIRIN 81 MG CHEWABLE TABLETS PO SCH (09:45)
[2019-01-05] MEDS: PANTOPRAZOLE 40 MG TABLET (FP) PO SCH (09:45)
[2019-01-05] MEDS: ALLOPURINOL 300 MG TABLET (FP) PO SCH (09:45)
[2019-01-05] MEDS: HEPARIN NA (PORCINE) 5,000 UNITS/ML 1ML VIAL SQ SCH ×2 (09:45→21:25)
--- NOTE | 2019-01-05 10:55 | PN ---
Progress Note, Physician History of Present Illness: pulmonary alert,comfortable,dyspnea improved - Current Medication List Current Medications: Active Medications Acetaminophen (Tylenol -) 650 mg PO Q6H PRN PRN Reason: PAIN Last Admin: 01/03/19 20:28 Dose: 650 mg Albuterol/Ipratropium (Duoneb -) 1 amp NEB Q6H PRN PRN Reason: SHORTNESS OF BREATH Last Admin: 01/05/19 06:03 Dose: 1 amp Allopurinol (Zyloprim -) 300 mg PO DAILY [facility] Last Admin: 01/05/19 09:45 Dose: 300 mg Aspirin (Asa -) 81 mg PO DAILY [facility] Last Admin: 01/05/19 09:45 Dose: 81 mg Atorvastatin Calcium (Lipitor -) 40 mg PO HS [facility] Last Admin: 01/04/19 21:23 Dose: 40 mg Atovaquone (Mepron -) 1,500 mg PO 0800 [facility] Last Admin: 01/05/19 09:44 Dose: 1,500 mg Clopidogrel Bisulfate (Plavix -) 75 mg PO DAILY [facility] Last Admin: 01/05/19 09:44 Dose: 75 mg Furosemide (Lasix -) 40 mg PO BID@0600,1400 [facility] Last Admin: 01/05/19 06:16 Dose: 40 mg Heparin Sodium (Porcine) (Heparin -) 5,000 unit SQ BID [facility] Last Admin: 01/05/19 09:45 Dose: 5,000 unit Hydrocortisone (Anusol 2.5% Hc Cream -) 1 applic [place] DAILY [facility] Last Admin: 01/05/19 09:44 Dose: 1 applic Levothyroxine Sodium (Synthroid -) 50 mcg PO DAILY@0700 [facility] Last Admin: 01/05/19 06:16 Dose: 50 mcg Metoprolol Succinate (Toprol Xl -) 12.5 mg PO DAILY [facility] Last Admin: 01/05/19 09:45 Dose: 12.5 mg Pantoprazole Sodium (Protonix -) 40 mg PO DAILY [facility] Last Admin: 01/05/19 09:45 Dose: 40 mg - Objective Vital Signs: Vital Signs Temperature 98 F 01/05/19 05:30 Pulse Rate 107 H 01/05/19 05:30 Respiratory Rate 20 01/05/19 08:37 Blood Pressure 122/83 01/05/19 05:30 O2 Sat by Pulse Oximetry (%) 98 01/05/19 08:37 Constitutional: Yes: Well Nourished, Calm Eyes: Yes: WNL HENT: Yes: WNL Neck: Yes: WNL Cardiovascular: Yes: Regular Rate and Rhythm, S1, S2 Respiratory: Yes: CTA Bilaterally Gastrointestinal: Yes: Normal Bowel Sounds, Soft Extremities: Yes: WNL Edema: Yes Labs: CBC, BMP 01/05/19 05:30 01/05/19 05:30 INR, PTT INR 1.18 (0.83-1.09) H 12/30/18 05:15 Problem List - Problems (1) Acute exacerbation of CHF (congestive heart failure) Code(s): I50.9 - HEART FAILURE, UNSPECIFIED (2) Acute on chronic systolic CHF (congestive heart failure) Code(s): I50.23 - ACUTE ON CHRONIC SYSTOLIC (CONGESTIVE) HEART FAILURE (3) Anemia Code(s): D64.9 - ANEMIA, UNSPECIFIED Qualifiers: Chronic kidney disease stage: unspecified stage (4) CAD (coronary artery disease) Code(s): I25.10 - ATHSCL HEART DISEASE OF [place] CORONARY ARTERY W/O ANG PCTRS Qualifiers: Coronary Disease-Associated Artery/Lesion type: [place] artery Associated angina: without angina (5) Elevated troponin Code(s): R74.8 - ABNORMAL LEVELS OF OTHER SERUM ENZYMES (6) Multiple myeloma Code(s): C90.00 - MULTIPLE MYELOMA NOT HAVING ACHIEVED REMISSION Qualifiers: Multiple myeloma remission status: not in remission Qualified Code(s): C90.00 - Multiple myeloma not having achieved remission (7) Respiratory insufficiency Code(s): R06.89 - OTHER ABNORMALITIES OF BREATHING (8) HLD (hyperlipidemia) Code(s): E78.5 - HYPERLIPIDEMIA, UNSPECIFIED Qualifiers: Hyperlipidemia type: unspecified Qualified Code(s): E78.5 - Hyperlipidemia , unspecified (9) HTN (hypertension) Code(s): I10 - ESSENTIAL (PRIMARY) HYPERTENSION Qualifiers: Hypertension type: essential hypertension Qualified Code(s): I10 - Essential (primary) hypertension (10) PAF (paroxysmal atrial fibrillation) Code(s): I48.0 - PAROXYSMAL ATRIAL FIBRILLATION (11) Multiple myeloma Code(s): C90.00 - MULTIPLE MYELOMA NOT HAVING ACHIEVED REMISSION (12) PHT (pulmonary hypertension) Code(s): I27.20 - PULMONARY HYPERTENSION, UNSPECIFIED (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 Assessment/Plan IMP ACUTE RESPIRATORY FAILURE IMPROVED ACUTE ON CHRONIC CHF IMPROVING CARDIOMYOPATHY ASHD S/P NSTEMI,S/P HOLLY STENT 12/21 MYELOMA /AMYLOIDOSIS ON CHEMO PULMONARY HTN ANEMIA H/O GI BLEED +TROPONIN PLAN LASIX PO O2 NIPPV NEEDED F/U CHEST X-RAYS DAILY WT MONITOR LYTES MONITOR H+H NORMAL TRANSFUSION THRESHOLD DR GREY Problem List - Problems (1) Acute exacerbation of CHF (congestive heart failure) Code(s): I50.9 - HEART FAILURE, UNSPECIFIED (2) Acute on chronic systolic CHF (congestive heart failure) Code(s): I50.23 - ACUTE ON CHRONIC SYSTOLIC (CONGESTIVE) HEART FAILURE (3) Anemia Code(s): D64.9 - ANEMIA, UNSPECIFIED Qualifiers: Chronic kidney disease stage: unspecified stage (4) CAD (coronary artery disease) Code(s): I25.10 - ATHSCL HEART DISEASE OF [place] CORONARY ARTERY W/O ANG PCTRS Qualifiers: Coronary Disease-Associated Artery/Lesion type: [place] artery Associated angina: without angina (5) Elevated troponin Code(s): R74.8 - ABNORMAL LEVELS OF OTHER SERUM ENZYMES (6) Multiple myeloma Code(s): C90.00 - MULTIPLE MYELOMA NOT HAVING ACHIEVED REMISSION Qualifiers: Multiple myeloma remission status: not in remission Qualified Code(s): C90.00 - Multiple myeloma not having achieved remission (7) Respiratory insufficiency Code(s): R06.89 - OTHER ABNORMALITIES OF BREATHING (8) HLD (hyperlipidemia) Code(s): E78.5 - HYPERLIPIDEMIA, UNSPECIFIED Qualifiers: Hyperlipidemia type: unspecified Qualified Code(s): E78.5 - Hyperlipidemia , unspecified (9) HTN (hypertension) Code(s): I10 - ESSENTIAL (PRIMARY) HYPERTENSION Qualifiers: Hypertension type: essential hypertension Qualified Code(s): I10 - Essential (primary) hypertension (10) PAF (paroxysmal atrial fibrillation) Code(s): I48.0 - PAROXYSMAL ATRIAL FIBRILLATION (11) Multiple myeloma Code(s): C90.00 - MULTIPLE MYELOMA NOT HAVING ACHIEVED REMISSION (12) PHT (pulmonary hypertension) Code(s): I27.20 - PULMONARY HYPERTENSION, UNSPECIFIED (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
--- NOTE | 2019-01-05 13:03 | PN ---
Progress Note, Physician History of Present Illness: Pt seen and examined at bedside. She is awake and alert. She feels that her breathing is improved. - Current Medication List Current Medications: Active Medications Acetaminophen (Tylenol -) 650 mg PO Q6H PRN PRN Reason: PAIN Last Admin: 01/03/19 20:28 Dose: 650 mg Albuterol/Ipratropium (Duoneb -) 1 amp NEB Q6H PRN PRN Reason: SHORTNESS OF BREATH Last Admin: 01/05/19 06:03 Dose: 1 amp Allopurinol (Zyloprim -) 300 mg PO DAILY [facility] Last Admin: 01/05/19 09:45 Dose: 300 mg Aspirin (Asa -) 81 mg PO DAILY [facility] Last Admin: 01/05/19 09:45 Dose: 81 mg Atorvastatin Calcium (Lipitor -) 40 mg PO HS [facility] Last Admin: 01/04/19 21:23 Dose: 40 mg Atovaquone (Mepron -) 1,500 mg PO 0800 [facility] Last Admin: 01/05/19 09:44 Dose: 1,500 mg Clopidogrel Bisulfate (Plavix -) 75 mg PO DAILY [facility] Last Admin: 01/05/19 09:44 Dose: 75 mg Furosemide (Lasix -) 40 mg PO BID@0600,1400 [facility] Last Admin: 01/05/19 06:16 Dose: 40 mg Heparin Sodium (Porcine) (Heparin -) 5,000 unit SQ BID [facility] Last Admin: 01/05/19 09:45 Dose: 5,000 unit Hydrocortisone (Anusol 2.5% Hc Cream -) 1 applic [place] DAILY [facility] Last Admin: 01/05/19 09:44 Dose: 1 applic Levothyroxine Sodium (Synthroid -) 50 mcg PO DAILY@0700 [facility] Last Admin: 01/05/19 06:16 Dose: 50 mcg Metoprolol Succinate (Toprol Xl -) 12.5 mg PO DAILY [facility] Last Admin: 01/05/19 09:45 Dose: 12.5 mg Pantoprazole Sodium (Protonix -) 40 mg PO DAILY [facility] Last Admin: 01/05/19 09:45 Dose: 40 mg - Objective Vital Signs: Vital Signs Temperature 98 F 01/05/19 05:30 Pulse Rate 90 01/05/19 12:44 Respiratory Rate 20 01/05/19 12:44 Blood Pressure 148/91 01/05/19 12:44 O2 Sat by Pulse Oximetry (%) 98 01/05/19 08:37 Constitutional: Yes: Calm Eyes: Yes: Conjunctiva Clear HENT: Yes: Atraumatic Neck: Yes: Supple Cardiovascular: Yes: S1, S2 Respiratory: Yes: CTA Bilaterally Gastrointestinal: Yes: Soft Genitourinary: Yes: WNL Edema: Yes Edema: LLE: Trace, RLE: Trace Neurological: Yes: Oriented Psychiatric: Yes: Oriented Labs: CBC, BMP 01/05/19 05:30 01/05/19 05:30 INR, PTT INR 1.18 (0.83-1.09) H 12/30/18 05:15 Problem List - Problems (1) CKD (chronic kidney disease) Code(s): N18.9 - CHRONIC KIDNEY DISEASE, UNSPECIFIED (2) Acute exacerbation of CHF (congestive heart failure) Code(s): I50.9 - HEART FAILURE, UNSPECIFIED Assessment/Plan Current Medications Generic Name Dose Route Start Last Admin Trade Name Freq PRN Reason Stop Dose Admin Acetaminophen 650 mg 01/03/19 20:10 01/03/19 20:28 Tylenol - PO 650 mg Q6H PRN Administration PAIN Albuterol/Ipratropium 1 amp 12/30/18 13:39 01/05/19 06:03 Duoneb - NEB 1 amp Q6H PRN Administration SHORTNESS OF BREATH Allopurinol 300 mg 12/30/18 13:45 01/05/19 09:45 Zyloprim - PO 300 mg DAILY [facility] Administration Aspirin 81 mg 12/30/18 14:00 01/05/19 09:45 Asa - PO 81 mg DAILY [facility] Administration Atorvastatin Calcium 40 mg 12/30/18 22:00 01/04/19 21:23 Lipitor - PO 40 mg HS [facility] Administration Atovaquone 1,500 mg 12/31/18 08:00 01/05/19 09:44 Mepron - PO 1,500 mg 0800 [facility] Administration Clopidogrel Bisulfate 75 mg 12/31/18 10:00 01/05/19 09:44 Plavix - PO 75 mg DAILY [facility] Administration Furosemide 40 mg 01/04/19 14:00 01/05/19 06:16 Lasix - PO 40 mg BID@0600,1400 [facility] Administration Heparin Sodium (Porcine) 5,000 unit 12/30/18 22:00 01/05/19 09:45 Heparin - SQ 5,000 unit BID [facility] Administration Hydrocortisone 1 applic 01/04/19 10:00 01/05/19 09:44 Anusol 2.5% Hc Cream - [place] 1 applic DAILY [facility] Administration Levothyroxine Sodium 50 mcg 12/31/18 07:00 01/05/19 06:16 Synthroid - PO 50 mcg DAILY@0700 [facility] Administration Metoprolol Succinate 12.5 mg 12/31/18 10:00 01/05/19 09:45 Toprol Xl - PO 12.5 mg DAILY [facility] Administration Pantoprazole Sodium 40 mg 12/30/18 13:45 01/05/19 09:45 Protonix - PO 40 mg DAILY [facility] Administration Impression 1. proteinuria 2. multiple myeloma 3. amyloid 4. fluid overload 5. hypotension 6. HLD 7. hypothyroidism 8. anemia 9. CKD Plan - pt on PO lasix - volume status is improved - bp is improved - will start low dose losartan 25 mg - repeat labs in am
--- NOTE | 2019-01-05 13:25 | PN ---
Physical Exam: SUBJECTIVE: Patient seen and examined, resting in bed comfortably; no complaints OBJECTIVE: Vital Signs Period Temp Pulse Resp BP Sys/Moss Pulse Ox Last 24 Hr 98 F-99 F 90-110 20-20 117-148/67-91 93-99 GENERAL: The patient is awake, alert LUNGS:decreased breath sounds; clear HEART: Regular rate and rhythm, S1, S2 without murmur, rub or gallop. ABDOMEN: soft; EXTREMITIES: 2+ pulses, warm, well-perfused, Laboratory Results - last 24 hr 01/05/19 01/05/19 05:30 05:30 WBC 4.8 RBC 3.00 L Hgb 9.1 L Hct 27.1 L MCV 90.4 MCH 30.4 MCHC 33.7 RDW 19.2 H Plt Count 133 L MPV 9.3 Absolute Neuts (auto) 2.9 Neutrophils % 61.1 Lymphocytes % 25.6 Monocytes % 12.2 H Eosinophils % 0.9 Basophils % 0.2 Nucleated RBC % 0 Sodium 138 Potassium 3.5 Chloride 101 Carbon Dioxide 28 Anion Gap 9 BUN 17 Creatinine 0.8 Creat Clearance w eGFR > 60 Random Glucose 87 Calcium 8.5 Magnesium 1.9 Total Bilirubin 0.5 AST 21 ALT 17 Alkaline Phosphatase 53 Total Protein 7.2 Albumin 1.6 L Active Medications Generic Name Dose Route Start Last Admin Trade Name [place] PRN Reason Stop Dose Admin Acetaminophen 650 mg 01/03/19 20:10 01/03/19 20:28 Tylenol - PO 650 mg Q6H PRN Administration PAIN Albuterol/Ipratropium 1 amp 12/30/18 13:39 01/05/19 06:03 Duoneb - NEB 1 amp Q6H PRN Administration SHORTNESS OF BREATH Allopurinol 300 mg 12/30/18 13:45 01/05/19 09:45 Zyloprim - PO 300 mg DAILY [facility] Administration Aspirin 81 mg 12/30/18 14:00 01/05/19 09:45 Asa - PO 81 mg DAILY [facility] Administration Atorvastatin Calcium 40 mg 12/30/18 22:00 01/04/19 21:23 Lipitor - PO 40 mg HS [facility] Administration Atovaquone 1,500 mg 12/31/18 08:00 01/05/19 09:44 Mepron - PO 1,500 mg 0800 [facility] Administration Clopidogrel Bisulfate 75 mg 12/31/18 10:00 01/05/19 09:44 Plavix - PO 75 mg DAILY [facility] Administration Furosemide 40 mg 01/04/19 14:00 01/05/19 06:16 Lasix - PO 40 mg BID@0600,1400 [facility] Administration Heparin Sodium (Porcine) 5,000 unit 12/30/18 22:00 01/05/19 09:45 Heparin - SQ 5,000 unit BID [facility] Administration Hydrocortisone 1 applic 01/04/19 10:00 01/05/19 09:44 Anusol 2.5% Hc Cream - [place] 1 applic DAILY [facility] Administration Levothyroxine Sodium 50 mcg 12/31/18 07:00 01/05/19 06:16 Synthroid - PO 50 mcg DAILY@0700 [facility] Administration Losartan Potassium 25 mg 01/05/19 13:30 Cozaar - PO DAILY [facility] Metoprolol Succinate 12.5 mg 12/31/18 10:00 01/05/19 09:45 Toprol Xl - PO 12.5 mg DAILY [facility] Administration Pantoprazole Sodium 40 mg 12/30/18 13:45 01/05/19 09:45 Protonix - PO 40 mg DAILY [facility] Administration ASSESSMENT/PLAN: This is a 73 year old [place] female with multiple myeloma/amyloid, presenting in acute respiratory failure due to CHF, now improving. Multiple Myeloma/amyloid CAD Pulmonary HTN Acute on chronic CHF hx of GI bleed -plan for colonoscopy - reaching euvolemia; -plan for DC; after pre/post oxygen sat with walk test -cont velcade/cytoxan/dexamethasone once d/c'd Visit type - Emergency Visit Emergency Visit: Yes ED Registration Date: 12/30/18 Care time: The patient presented to the Emergency Department on the above date and was hospitalized for further evaluation of their emergent condition. - New Patient This patient is new to me today: No - Critical Care Critical Care patient: No
[2019-01-05] MEDS: LOSARTAN POTASSIUM 25 MG TABLET PO SCH (13:34)
--- NOTE | 2019-01-05 15:32 | PN ---
Teaching Attending Note Name of Resident: Saumya Peraza ATTENDING PHYSICIAN STATEMENT I saw and evaluated the patient. I reviewed the resident's note and discussed the case with the resident. I agree with the resident's findings and plan as documented. SUBJECTIVE: Patient seen and examined OFFERS NO COMPLAINTS ON ROS Last Vital Signs Temp Pulse Resp BP Pulse Ox 98 F 80 20 148/91 93 L 01/05/19 05:30 01/05/19 15:22 01/05/19 12:44 01/05/19 12:44 01/05/19 15:22 HEENT: ZOILA, EOM Intact Oropharynx: No thrush, No mucositis Neck: Supple Cor: RSR, No murmurs, No gallops Lungs: Clear to P&A Abd: Soft, Normal bowel sounds, No organomegaly Ext:No significant edema Skin: No rashes, Integument intact CBC, BMP 01/05/19 05:30 01/05/19 05:30 Current Medications Generic Name Dose Route Start Last Admin Trade Name Freq PRN Reason Stop Dose Admin Acetaminophen 650 mg 01/03/19 20:10 01/03/19 20:28 Tylenol - PO 650 mg Q6H PRN Administration PAIN Albuterol/Ipratropium 1 amp 12/30/18 13:39 01/05/19 06:03 Duoneb - NEB 1 amp Q6H PRN Administration SHORTNESS OF BREATH Allopurinol 300 mg 12/30/18 13:45 01/05/19 09:45 Zyloprim - PO 300 mg DAILY [facility] Administration Aspirin 81 mg 12/30/18 14:00 01/05/19 09:45 Asa - PO 81 mg DAILY [facility] Administration Atorvastatin Calcium 40 mg 12/30/18 22:00 01/04/19 21:23 Lipitor - PO 40 mg HS [facility] Administration Atovaquone 1,500 mg 12/31/18 08:00 01/05/19 09:44 Mepron - PO 1,500 mg 0800 [facility] Administration Clopidogrel Bisulfate 75 mg 12/31/18 10:00 01/05/19 09:44 Plavix - PO 75 mg DAILY [facility] Administration Furosemide 40 mg 01/04/19 14:00 01/05/19 13:34 Lasix - PO 40 mg BID@0600,1400 [facility] Administration Heparin Sodium (Porcine) 5,000 unit 12/30/18 22:00 01/05/19 09:45 Heparin - SQ 5,000 unit BID [facility] Administration Hydrocortisone 1 applic 01/04/19 10:00 01/05/19 09:44 Anusol 2.5% Hc Cream - [place] 1 applic DAILY [facility] Administration Levothyroxine Sodium 50 mcg 12/31/18 07:00 01/05/19 06:16 Synthroid - PO 50 mcg DAILY@0700 [facility] Administration Losartan Potassium 25 mg 01/05/19 13:30 01/05/19 13:34 Cozaar - PO 25 mg DAILY [facility] Administration Metoprolol Succinate 12.5 mg 12/31/18 10:00 01/05/19 09:45 Toprol Xl - PO 12.5 mg DAILY [facility] Administration Pantoprazole Sodium 40 mg 12/30/18 13:45 01/05/19 09:45 Protonix - PO 40 mg DAILY [facility] Administration Impression: Multiple myeloma/amyloid Anemia secondary to chronic disease, chemotherapy, myeloma, blood loss Acute/ chronic CHF Plan: Outpatient follow up to resume treatments. OBJECTIVE: ASSESSMENT AND PLAN:
[2019-01-05] MEDS: ATORVASTATIN CA 40 MG TABLET (FP) PO SCH (21:25)
--- NOTE | 2019-01-05 22:35 | PN ---
Progress Note, Physician History of Present Illness: Pt is concerned about fact that she needs O2 at home - Current Medication List Current Medications: Active Medications Acetaminophen (Tylenol -) 650 mg PO Q6H PRN PRN Reason: PAIN Last Admin: 01/03/19 20:28 Dose: 650 mg Albuterol/Ipratropium (Duoneb -) 1 amp NEB Q6H PRN PRN Reason: SHORTNESS OF BREATH Last Admin: 01/05/19 06:03 Dose: 1 amp Allopurinol (Zyloprim -) 300 mg PO DAILY [facility] Last Admin: 01/05/19 09:45 Dose: 300 mg Aspirin (Asa -) 81 mg PO DAILY [facility] Last Admin: 01/05/19 09:45 Dose: 81 mg Atorvastatin Calcium (Lipitor -) 40 mg PO HS [facility] Last Admin: 01/05/19 21:25 Dose: 40 mg Atovaquone (Mepron -) 1,500 mg PO 0800 [facility] Last Admin: 01/05/19 09:44 Dose: 1,500 mg Clopidogrel Bisulfate (Plavix -) 75 mg PO DAILY [facility] Last Admin: 01/05/19 09:44 Dose: 75 mg Furosemide (Lasix -) 40 mg PO BID@0600,1400 [facility] Last Admin: 01/05/19 13:34 Dose: 40 mg Heparin Sodium (Porcine) (Heparin -) 5,000 unit SQ BID [facility] Last Admin: 01/05/19 21:25 Dose: Not Given Hydrocortisone (Anusol 2.5% Hc Cream -) 1 applic [place] DAILY [facility] Last Admin: 01/05/19 09:44 Dose: 1 applic Levothyroxine Sodium (Synthroid -) 50 mcg PO DAILY@0700 [facility] Last Admin: 01/05/19 06:16 Dose: 50 mcg Losartan Potassium (Cozaar -) 25 mg PO DAILY [facility] Last Admin: 01/05/19 13:34 Dose: 25 mg Metoprolol Succinate (Toprol Xl -) 12.5 mg PO DAILY [facility] Last Admin: 01/05/19 09:45 Dose: 12.5 mg Pantoprazole Sodium (Protonix -) 40 mg PO DAILY [facility] Last Admin: 01/05/19 09:45 Dose: 40 mg - Objective Vital Signs: Vital Signs Temperature 98.7 F 01/05/19 17:00 Pulse Rate 93 H 01/05/19 17:00 Respiratory Rate 20 01/05/19 17:00 Blood Pressure 120/78 01/05/19 17:00 O2 Sat by Pulse Oximetry (%) 93 L 01/05/19 15:22 Neck: Yes: WNL, Supple Cardiovascular: Yes: WNL, Regular Rate and Rhythm Respiratory: Yes: WNL, Regular, CTA Bilaterally Gastrointestinal: Yes: WNL, Normal Bowel Sounds, Soft Edema: LLE: Trace, RLE: Trace Labs: CBC, BMP 01/05/19 05:30 01/05/19 05:30 INR, PTT INR 1.18 (0.83-1.09) H 12/30/18 05:15 Problem List - Problems (1) Acute on chronic systolic CHF (congestive heart failure) Assessment/Plan: Cont PO lasix Monitor electrolytes As per cardio ARB to be added Code(s): I50.23 - ACUTE ON CHRONIC SYSTOLIC (CONGESTIVE) HEART FAILURE (2) Acute respiratory failure Assessment/Plan: Due to volume overload Cont diuresis and monitor May need home O2 Code(s): J96.00 - ACUTE RESPIRATORY FAILURE, UNSP W HYPOXIA OR HYPERCAPNIA (3) Anemia Assessment/Plan: Rectal bleed due to rectal polyp S/P transfusion 1 unit PRBC's Will need to try to hold off on colonoscopy H/H remains stable Code(s): D64.9 - ANEMIA, UNSPECIFIED (4) CAD (coronary artery disease) Assessment/Plan: Cont plavix/asa S/P NSTEMI and stent placement Code(s): I25.10 - ATHSCL HEART DISEASE OF [place] CORONARY ARTERY W/O ANG PCTRS Qualifiers: Coronary Disease-Associated Artery/Lesion type: [place] artery Associated angina: without angina (5) CKD (chronic kidney disease) Assessment/Plan: Due to proteinuria/Multiple myeloma/amyloid As per renal Code(s): N18.9 - CHRONIC KIDNEY DISEASE, UNSPECIFIED (6) Multiple myeloma Code(s): C90.00 - MULTIPLE MYELOMA NOT HAVING ACHIEVED REMISSION Qualifiers: Multiple myeloma remission status: not in remission Qualified Code(s): C90.00 - Multiple myeloma not having achieved remission (7) HLD (hyperlipidemia) Assessment/Plan: Cont lipitor Code(s): E78.5 - HYPERLIPIDEMIA, UNSPECIFIED Qualifiers: Hyperlipidemia type: unspecified Qualified Code(s): E78.5 - Hyperlipidemia , unspecified (8) HTN (hypertension) Assessment/Plan: Cont metoprolol Code(s): I10 - ESSENTIAL (PRIMARY) HYPERTENSION Qualifiers: Hypertension type: essential hypertension Qualified Code(s): I10 - Essential (primary) hypertension (9) Hypothyroidism Assessment/Plan: Cont levothyroxine Code(s): E03.9 - HYPOTHYROIDISM, UNSPECIFIED Qualifiers: Hypothyroidism type: acquired Qualified Code(s): E03.9 - Hypothyroidism, unspecified
[2019-01-06] MEDS: LEVOTHYROXINE NA 50 MCG TABLET (FP) PO SCH (06:49)
[2019-01-06] MEDS: FUROSEMIDE 40 MG TABLET (FP) PO SCH ×2 (06:49→15:54)
[2019-01-06 07:09] LABS: BASO % 0.4 % (0-2.0); HEMATOCRIT 27.1 % (32.4-45.2); HEMOGLOBIN 9.2 GM/dL (10.7-15.3); LYMPH % 27.8 % (8-40); MCH 30.5 pg (25.7-33.7); MCHC 33.8 g/dl (32.0-36.0); MEAN CELL VOLUME 90.3 fl (80-96); MEAN PLT VOLUME 9.7 fl (7.5-11.1); NEUT % 53.8 % (42.8-82.8); PLATELET COUNT 133 K/MM3 (134-434); RDW 19.3 % (11.6-15.6); WHITE BLOOD COUNT 4.3 K/mm3 (4.0-10.0)
[2019-01-06 07:45] LABS: ALBUMIN 1.6 g/dl (3.4-5.0); ALK PHOS 54 U/L (45-117); ANION GAP 9 MMOL/L (8-16); BILIRUBIN,TOTAL 0.9 mg/dL (0.2-1); BLOOD UREA NITROGEN 17 mg/dL (7-18); CALCIUM 8.7 mg/dL (8.5-10.1); CHLORIDE 102 mmol/L (98-107); CO2 28 mmol/L (21-32); CREATININE 0.7 mg/dL (0.55-1.3); GLUCOSE,RANDOM 85 mg/dL (74-106); POTASSIUM 3.4 mmol/L (3.5-5.1); SGOT/AST 13 U/L (15-37); SGPT/ALT 13 U/L (13-61); SODIUM 139 mmol/L (136-145); TOT PROT 7.4 g/dl (6.4-8.2)
[2019-01-06] MEDS: ATOVAQUONE 750 MG/5 ML (UNIT-DOSE PACKAGING) PO SCH (08:00)
--- NOTE | 2019-01-06 08:28 | PN ---
Progress Note, Physician History of Present Illness: GI FOLLOW UP NOTE Patient examined and case discussed with Dr. Perkins Patient denies further episodes of rectal bleeding and states that rectal pain has improved since applying anusol cream daily. Patient denies abdominal pain, nausea, vomiting, diarrhea, or rectal bleeding. - Current Medication List Current Medications: Active Medications Acetaminophen (Tylenol -) 650 mg PO Q6H PRN PRN Reason: PAIN Last Admin: 01/03/19 20:28 Dose: 650 mg Albuterol/Ipratropium (Duoneb -) 1 amp NEB Q6H PRN PRN Reason: SHORTNESS OF BREATH Last Admin: 01/05/19 06:03 Dose: 1 amp Allopurinol (Zyloprim -) 300 mg PO DAILY [facility] Last Admin: 01/05/19 09:45 Dose: 300 mg Aspirin (Asa -) 81 mg PO DAILY [facility] Last Admin: 01/05/19 09:45 Dose: 81 mg Atorvastatin Calcium (Lipitor -) 40 mg PO HS [facility] Last Admin: 01/05/19 21:25 Dose: 40 mg Atovaquone (Mepron -) 1,500 mg PO 0800 [facility] Last Admin: 01/05/19 09:44 Dose: 1,500 mg Clopidogrel Bisulfate (Plavix -) 75 mg PO DAILY [facility] Last Admin: 01/05/19 09:44 Dose: 75 mg Furosemide (Lasix -) 40 mg PO BID@0600,1400 [facility] Last Admin: 01/06/19 06:49 Dose: 40 mg Heparin Sodium (Porcine) (Heparin -) 5,000 unit SQ BID [facility] Last Admin: 01/05/19 21:25 Dose: Not Given Hydrocortisone (Anusol 2.5% Hc Cream -) 1 applic [place] DAILY [facility] Last Admin: 01/05/19 09:44 Dose: 1 applic Levothyroxine Sodium (Synthroid -) 50 mcg PO DAILY@0700 [facility] Last Admin: 01/06/19 06:49 Dose: 50 mcg Losartan Potassium (Cozaar -) 25 mg PO DAILY [facility] Last Admin: 01/05/19 13:34 Dose: 25 mg Metoprolol Succinate (Toprol Xl -) 12.5 mg PO DAILY [facility] Last Admin: 01/05/19 09:45 Dose: 12.5 mg Pantoprazole Sodium (Protonix -) 40 mg PO DAILY [facility] Last Admin: 01/05/19 09:45 Dose: 40 mg - Objective Vital Signs: Vital Signs Temperature 97.9 F 01/06/19 06:48 Pulse Rate 100 H 01/06/19 06:48 Respiratory Rate 20 01/06/19 06:48 Blood Pressure 110/72 01/06/19 06:48 O2 Sat by Pulse Oximetry (%) 98 01/05/19 21:00 Constitutional: Yes: No Distress, Calm Eyes: Yes: Conjunctiva Clear HENT: Yes: Atraumatic Cardiovascular: Yes: Tachycardia Respiratory: Yes: Wheezes (B/L) Gastrointestinal: Yes: Normal Bowel Sounds, Soft, Other (non tender). No: WNL, Abdomen, Obese, Ascites, Distention, Hematemesis, Hemorrhoids, Hepatomegaly, Hernia, Hyperactive Bowel Sounds, Hypoactive Bowel Sounds, Melena, Palpable Mass , Pulsatile Mass, Rectal Bleeding, Splenomegaly, Tenderness, Tenderness, Epigastrium, Tenderness, Rebound, Vomiting Neurological: Yes: Alert, Oriented Labs: CBC, BMP 01/06/19 05:30 01/06/19 05:30 INR, PTT INR 1.18 (0.83-1.09) H 12/30/18 05:15 Problem List - Problems (1) Rectal bleed Assessment/Plan: >monitor H/H daily >current Hg 9.2 >transfuse PRBC when Hg <8.0 >emergent CTA of Abdomen if profuse bleeding noted from rectum >patient instructed to follow up with GI as outpatient for further managament Code(s): K62.5 - HEMORRHAGE OF ANUS AND RECTUM (2) Rectal pain Assessment/Plan: >continue with annusol cream daily Code(s): K62.89 - OTHER SPECIFIED DISEASES OF ANUS AND RECTUM
--- NOTE | 2019-01-06 09:11 | PN ---
Progress Note, Physician Chief Complaint: seen and examined feeling better No further bleeding. - Current Medication List Current Medications: Active Medications Acetaminophen (Tylenol -) 650 mg PO Q6H PRN PRN Reason: PAIN Last Admin: 01/03/19 20:28 Dose: 650 mg Albuterol/Ipratropium (Duoneb -) 1 amp NEB Q6H PRN PRN Reason: SHORTNESS OF BREATH Last Admin: 01/05/19 06:03 Dose: 1 amp Allopurinol (Zyloprim -) 300 mg PO DAILY [facility] Last Admin: 01/05/19 09:45 Dose: 300 mg Aspirin (Asa -) 81 mg PO DAILY [facility] Last Admin: 01/05/19 09:45 Dose: 81 mg Atorvastatin Calcium (Lipitor -) 40 mg PO HS [facility] Last Admin: 01/05/19 21:25 Dose: 40 mg Atovaquone (Mepron -) 1,500 mg PO 0800 [facility] Last Admin: 01/05/19 09:44 Dose: 1,500 mg Clopidogrel Bisulfate (Plavix -) 75 mg PO DAILY [facility] Last Admin: 01/05/19 09:44 Dose: 75 mg Furosemide (Lasix -) 40 mg PO BID@0600,1400 [facility] Last Admin: 01/06/19 06:49 Dose: 40 mg Heparin Sodium (Porcine) (Heparin -) 5,000 unit SQ BID [facility] Last Admin: 01/05/19 21:25 Dose: Not Given Hydrocortisone (Anusol 2.5% Hc Cream -) 1 applic [place] DAILY [facility] Last Admin: 01/05/19 09:44 Dose: 1 applic Levothyroxine Sodium (Synthroid -) 50 mcg PO DAILY@0700 [facility] Last Admin: 01/06/19 06:49 Dose: 50 mcg Losartan Potassium (Cozaar -) 25 mg PO DAILY [facility] Last Admin: 01/05/19 13:34 Dose: 25 mg Metoprolol Succinate (Toprol Xl -) 12.5 mg PO DAILY [facility] Last Admin: 01/05/19 09:45 Dose: 12.5 mg Pantoprazole Sodium (Protonix -) 40 mg PO DAILY [facility] Last Admin: 01/05/19 09:45 Dose: 40 mg - Objective Vital Signs: Vital Signs Temperature 97.9 F 01/06/19 06:48 Pulse Rate 100 H 01/06/19 06:48 Respiratory Rate 20 01/06/19 06:48 Blood Pressure 110/72 01/06/19 06:48 O2 Sat by Pulse Oximetry (%) 98 01/05/19 21:00 Constitutional: Yes: No Distress, Calm Eyes: Yes: Conjunctiva Clear Cardiovascular: Yes: Regular Rate and Rhythm Respiratory: Yes: Other (decreased breath sounds bilaterally) Gastrointestinal: Yes: Soft Edema: Yes Edema: LLE: 1+, RLE: 1+ Neurological: Yes: Alert, Oriented ...Motor Strength: WNL Labs: CBC, BMP 01/06/19 05:30 01/06/19 05:30 INR, PTT INR 1.18 (0.83-1.09) H 12/30/18 05:15 Laboratory Tests 01/05/19 01/06/19 01/06/19 05:30 05:30 05:30 WBC 4.3 Hgb 9.2 L Plt Count 133 L Sodium 139 Potassium 3.4 L Creatinine 0.7 Magnesium 1.9 - ....Imaging EKG: Image Reviewed (NSR NSST) Problem List - Problems (1) Acute on chronic systolic CHF (congestive heart failure) Code(s): I50.23 - ACUTE ON CHRONIC SYSTOLIC (CONGESTIVE) HEART FAILURE (2) CAD (coronary artery disease) Code(s): I25.10 - ATHSCL HEART DISEASE OF [place] CORONARY ARTERY W/O ANG PCTRS Qualifiers: Coronary Disease-Associated Artery/Lesion type: [place] artery Associated angina: without angina (3) Multiple myeloma Code(s): C90.00 - MULTIPLE MYELOMA NOT HAVING ACHIEVED REMISSION Qualifiers: Multiple myeloma remission status: not in remission Qualified Code(s): C90.00 - Multiple myeloma not having achieved remission (4) Anemia Code(s): D64.9 - ANEMIA, UNSPECIFIED Qualifiers: Chronic kidney disease stage: unspecified stage (5) Elevated troponin I level Code(s): R74.8 - ABNORMAL LEVELS OF OTHER SERUM ENZYMES Assessment/Plan IMP: Acute on chronic systolic CHF Cardiomyopathy, mild LV systolic dysfunction Recent NSTEMI s/p HOLLY D1 Multiple myeloma on chemotherapy Chronic Anemia- guaiac negative, but known rectal polyp REC: 1. Clinically improved with several days lasix gtts: now switched to PO 40mg BID and remains stable after 24 hours of oral therapy 2. Continue low dose Toprol, tolerated well (CAD/CHF w/ mild LV dysfx). 3. Now on ARB. 4. To continue ASA/Plavix/Atorvastatin s/p recent NSTEMI w/ HOLLY to D1 (new generation HOLLY will require Plavix for 3 months, ASA lifelong). Will need to remain on DAPT for at least 3 months (recent NSTEMI and HOLLY). If removal of rectal polyp can be held until then may be optimal. This depends on clinical course. 5. Pre and post exercise O2 sat to assess for need for home O2 6. Discharge planning. March d/c tele.
--- NOTE | 2019-01-06 11:35 | PN ---
Progress Note (short form) - Note Progress Note: Breathing feels overall better. Improving ROGERS. No CP. Afebrile. Intake & Output 01/03/19 01/04/19 01/05/19 01/06/19 23:59 23:59 23:59 23:59 Intake Total 600 180 660 Balance 600 180 660 Weight 149 lb 12.8 oz 147 lb 12.8 oz 146 lb 145 lb 12.8 oz Last Vital Signs Temp Pulse Resp BP Pulse Ox 97.9 F 82 18 98/52 L 95 01/06/19 06:48 01/06/19 09:00 01/06/19 09:00 01/06/19 09:00 01/06/19 09:00 Active Medications Acetaminophen (Tylenol -) 650 mg PO Q6H PRN PRN Reason: PAIN Last Admin: 01/03/19 20:28 Dose: 650 mg Albuterol/Ipratropium (Duoneb -) 1 amp NEB Q6H PRN PRN Reason: SHORTNESS OF BREATH Last Admin: 01/05/19 06:03 Dose: 1 amp Allopurinol (Zyloprim -) 300 mg PO DAILY [facility] Last Admin: 01/05/19 09:45 Dose: 300 mg Aspirin (Asa -) 81 mg PO DAILY [facility] Last Admin: 01/05/19 09:45 Dose: 81 mg Atorvastatin Calcium (Lipitor -) 40 mg PO HS [facility] Last Admin: 01/05/19 21:25 Dose: 40 mg Atovaquone (Mepron -) 1,500 mg PO 0800 [facility] Last Admin: 01/05/19 09:44 Dose: 1,500 mg Clopidogrel Bisulfate (Plavix -) 75 mg PO DAILY [facility] Last Admin: 01/05/19 09:44 Dose: 75 mg Furosemide (Lasix -) 40 mg PO BID@0600,1400 [facility] Last Admin: 01/06/19 06:49 Dose: 40 mg Heparin Sodium (Porcine) (Heparin -) 5,000 unit SQ BID [facility] Last Admin: 01/05/19 21:25 Dose: Not Given Hydrocortisone (Anusol 2.5% Hc Cream -) 1 applic [place] DAILY [facility] Last Admin: 01/05/19 09:44 Dose: 1 applic Levothyroxine Sodium (Synthroid -) 50 mcg PO DAILY@0700 [facility] Last Admin: 01/06/19 06:49 Dose: 50 mcg Losartan Potassium (Cozaar -) 25 mg PO DAILY [facility] Last Admin: 01/05/19 13:34 Dose: 25 mg Metoprolol Succinate (Toprol Xl -) 12.5 mg PO DAILY [facility] Last Admin: 01/05/19 09:45 Dose: 12.5 mg Pantoprazole Sodium (Protonix -) 40 mg PO DAILY [facility] Last Admin: 01/05/19 09:45 Dose: 40 mg Constitutional: No Distress Neck: Supple Negative JVD No Bruit Cardiovascular: S1 S2 Regular Rate Rhythm Respiratory: Less basilar Rales Gastrointestinal: Soft Benign Normal Bowel Sounds Ext: No Edema Laboratory Results - last 24 hr 01/06/19 01/06/19 05:30 05:30 WBC 4.3 RBC 3.00 L Hgb 9.2 L Hct 27.1 L MCV 90.3 MCH 30.5 MCHC 33.8 RDW 19.3 H Plt Count 133 L MPV 9.7 Absolute Neuts (auto) 2.3 Neutrophils % 53.8 Lymphocytes % 27.8 Monocytes % 17.0 H Eosinophils % 1.0 Basophils % 0.4 Nucleated RBC % 0 Sodium 139 Potassium 3.4 L Chloride 102 Carbon Dioxide 28 Anion Gap 9 BUN 17 Creatinine 0.7 Creat Clearance w eGFR > 60 Random Glucose 85 Calcium 8.7 Total Bilirubin 0.9 AST 13 L ALT 13 Alkaline Phosphatase 54 Total Protein 7.4 Albumin 1.6 L Problem List - Problems (1) Acute exacerbation of CHF (congestive heart failure) Code(s): I50.9 - HEART FAILURE, UNSPECIFIED (2) Acute on chronic systolic CHF (congestive heart failure) Code(s): I50.23 - ACUTE ON CHRONIC SYSTOLIC (CONGESTIVE) HEART FAILURE (3) Anemia Code(s): D64.9 - ANEMIA, UNSPECIFIED Qualifiers: Chronic kidney disease stage: unspecified stage (4) CAD (coronary artery disease) Code(s): I25.10 - ATHSCL HEART DISEASE OF [place] CORONARY ARTERY W/O ANG PCTRS Qualifiers: Coronary Disease-Associated Artery/Lesion type: [place] artery Associated angina: without angina (5) Elevated troponin Code(s): R74.8 - ABNORMAL LEVELS OF OTHER SERUM ENZYMES (6) Multiple myeloma Code(s): C90.00 - MULTIPLE MYELOMA NOT HAVING ACHIEVED REMISSION Qualifiers: Multiple myeloma remission status: not in remission Qualified Code(s): C90.00 - Multiple myeloma not having achieved remission (7) Respiratory insufficiency Code(s): R06.89 - OTHER ABNORMALITIES OF BREATHING (8) HLD (hyperlipidemia) Code(s): E78.5 - HYPERLIPIDEMIA, UNSPECIFIED Qualifiers: Hyperlipidemia type: unspecified Qualified Code(s): E78.5 - Hyperlipidemia , unspecified (9) HTN (hypertension) Code(s): I10 - ESSENTIAL (PRIMARY) HYPERTENSION Qualifiers: Hypertension type: essential hypertension Qualified Code(s): I10 - Essential (primary) hypertension (10) PAF (paroxysmal atrial fibrillation) Code(s): I48.0 - PAROXYSMAL ATRIAL FIBRILLATION (11) Multiple myeloma Code(s): C90.00 - MULTIPLE MYELOMA NOT HAVING ACHIEVED REMISSION (12) PHT (pulmonary hypertension) Code(s): I27.20 - PULMONARY HYPERTENSION, UNSPECIFIED (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 IMP ACUTE ON CHRONIC CHF CARDIOMYOPATHY ASHD S/P NSTEMI,S/P HOLLY STENT 12/21 MYELOMA /AMYLOIDOSIS ON CHEMO PULMONARY HTN ANEMIA H/O GI BLEED +TROPONIN PLAN LASIX PO BID O2 NEEDED DAILY WT NORMAL TRANSFUSION THRESHOLD DR FRANKEL
[2019-01-06] MEDS: metoPROLOL SUCCINATE 25 MG TAB.SR.24H (FP) PO SCH (12:06)
[2019-01-06] MEDS: CLOPIDOGREL BISULFATE 75 MG TABLET (FP) PO SCH (12:06)
[2019-01-06] MEDS: HYDROCORTISONE 2.5% TOPICAL CREAM 30 GM TUBE PR SCH (12:06)
[2019-01-06] MEDS: ASPIRIN 81 MG CHEWABLE TABLETS PO SCH (12:06)
[2019-01-06] MEDS: LOSARTAN POTASSIUM 25 MG TABLET PO SCH (12:07)
[2019-01-06] MEDS: HEPARIN NA (PORCINE) 5,000 UNITS/ML 1ML VIAL SQ SCH (12:07)
[2019-01-06] MEDS: PANTOPRAZOLE 40 MG TABLET (FP) PO SCH (12:07)
[2019-01-06] MEDS: ALLOPURINOL 300 MG TABLET (FP) PO SCH (12:07)
[2019-01-06] MEDS ORDERED: PT OWN MED DRAWER 7, Y5N ONE (12:46)
--- NOTE | 2019-01-06 13:47 | PN ---
Progress Note, Physician History of Present Illness: Pt seen and examined at bedside. She is awake and alert. She denies shortness of breath. - Current Medication List Current Medications: Active Medications Acetaminophen (Tylenol -) 650 mg PO Q6H PRN PRN Reason: PAIN Last Admin: 01/03/19 20:28 Dose: 650 mg Albuterol/Ipratropium (Duoneb -) 1 amp NEB Q6H PRN PRN Reason: SHORTNESS OF BREATH Last Admin: 01/05/19 06:03 Dose: 1 amp Allopurinol (Zyloprim -) 300 mg PO DAILY [facility] Last Admin: 01/06/19 12:07 Dose: 300 mg Aspirin (Asa -) 81 mg PO DAILY [facility] Last Admin: 01/06/19 12:06 Dose: 81 mg Atorvastatin Calcium (Lipitor -) 40 mg PO HS [facility] Last Admin: 01/05/19 21:25 Dose: 40 mg Atovaquone (Mepron -) 1,500 mg PO 0800 [facility] Last Admin: 01/05/19 09:44 Dose: 1,500 mg Clopidogrel Bisulfate (Plavix -) 75 mg PO DAILY [facility] Last Admin: 01/06/19 12:06 Dose: 75 mg Furosemide (Lasix -) 40 mg PO BID@0600,1400 [facility] Last Admin: 01/06/19 06:49 Dose: 40 mg Heparin Sodium (Porcine) (Heparin -) 5,000 unit SQ BID [facility] Last Admin: 01/06/19 12:07 Dose: 5,000 unit Hydrocortisone (Anusol 2.5% Hc Cream -) 1 applic [place] DAILY [facility] Last Admin: 01/06/19 12:06 Dose: 1 applic Levothyroxine Sodium (Synthroid -) 50 mcg PO DAILY@0700 [facility] Last Admin: 01/06/19 06:49 Dose: 50 mcg Losartan Potassium (Cozaar -) 25 mg PO DAILY [facility] Last Admin: 01/06/19 12:07 Dose: 25 mg Metoprolol Succinate (Toprol Xl -) 12.5 mg PO DAILY [facility] Last Admin: 01/06/19 12:06 Dose: 12.5 mg Pantoprazole Sodium (Protonix -) 40 mg PO DAILY [facility] Last Admin: 01/06/19 12:07 Dose: 40 mg - Objective Vital Signs: Vital Signs Temperature 97.9 F 01/06/19 06:48 Pulse Rate 118 H 01/06/19 12:43 Respiratory Rate 18 01/06/19 09:00 Blood Pressure 98/52 L 01/06/19 09:00 O2 Sat by Pulse Oximetry (%) 95 01/06/19 12:43 Constitutional: Yes: Calm Eyes: Yes: Conjunctiva Clear HENT: Yes: Atraumatic Neck: Yes: Supple Cardiovascular: Yes: S1, S2 Respiratory: Yes: CTA Bilaterally Gastrointestinal: Yes: Soft Genitourinary: Yes: WNL Musculoskeletal: Yes: WNL Edema: Yes (markedly improved) Edema: LLE: Trace, RLE: Trace Neurological: Yes: Oriented Psychiatric: Yes: Oriented Labs: CBC, BMP 01/06/19 05:30 01/06/19 05:30 INR, PTT INR 1.18 (0.83-1.09) H 12/30/18 05:15 Problem List - Problems (1) CKD (chronic kidney disease) Code(s): N18.9 - CHRONIC KIDNEY DISEASE, UNSPECIFIED (2) Acute exacerbation of CHF (congestive heart failure) Code(s): I50.9 - HEART FAILURE, UNSPECIFIED Assessment/Plan Current Medications Generic Name Dose Route Start Last Admin Trade Name Freq PRN Reason Stop Dose Admin Acetaminophen 650 mg 01/03/19 20:10 01/03/19 20:28 Tylenol - PO 650 mg Q6H PRN Administration PAIN Albuterol/Ipratropium 1 amp 12/30/18 13:39 01/05/19 06:03 Duoneb - NEB 1 amp Q6H PRN Administration SHORTNESS OF BREATH Allopurinol 300 mg 12/30/18 13:45 01/06/19 12:07 Zyloprim - PO 300 mg DAILY [facility] Administration Aspirin 81 mg 12/30/18 14:00 01/06/19 12:06 Asa - PO 81 mg DAILY [facility] Administration Atorvastatin Calcium 40 mg 12/30/18 22:00 01/05/19 21:25 Lipitor - PO 40 mg HS [facility] Administration Atovaquone 1,500 mg 12/31/18 08:00 01/05/19 09:44 Mepron - PO 1,500 mg 0800 [facility] Administration Clopidogrel Bisulfate 75 mg 12/31/18 10:00 01/06/19 12:06 Plavix - PO 75 mg DAILY [facility] Administration Furosemide 40 mg 01/04/19 14:00 01/06/19 06:49 Lasix - PO 40 mg BID@0600,1400 [facility] Administration Heparin Sodium (Porcine) 5,000 unit 12/30/18 22:00 01/06/19 12:07 Heparin - SQ 5,000 unit BID [facility] Administration Hydrocortisone 1 applic 01/04/19 10:00 01/06/19 12:06 Anusol 2.5% Hc Cream - [place] 1 applic DAILY [facility] Administration Levothyroxine Sodium 50 mcg 12/31/18 07:00 01/06/19 06:49 Synthroid - PO 50 mcg DAILY@0700 [facility] Administration Losartan Potassium 25 mg 01/05/19 13:30 01/06/19 12:07 Cozaar - PO 25 mg DAILY [facility] Administration Metoprolol Succinate 12.5 mg 12/31/18 10:00 01/06/19 12:06 Toprol Xl - PO 12.5 mg DAILY [facility] Administration Pantoprazole Sodium 40 mg 12/30/18 13:45 01/06/19 12:07 Protonix - PO 40 mg DAILY [facility] Administration Impression 1. proteinuria 2. multiple myeloma 3. amyloid 4. fluid overload 5. hypotension 6. HLD 7. hypothyroidism 8. anemia 9. CKD Plan - volume status is improving - monitor bp - hold losartan if bp is low, parameters on orders - pt on PO lasix - repeat labs in am - replace potassium - check mag
[2019-01-06] MEDS ORDERED: POTASSIUM CHLORIDE TABS 20 MEQ TABLET.ER (FP) PO ONE (13:50)
--- NOTE | 2019-01-06 15:17 | PN ---
Physical Exam: SUBJECTIVE: Patient seen and examined; off 02; no complaints OBJECTIVE: Vital Signs Period Temp Pulse Resp BP Sys/Moss Pulse Ox Last 24 Hr 97.9 F-98.7 F 80-118 18-20 98-120/52-78 93-98 GENERAL: The patient is awake, alert, and fully oriented, in no acute distress. LUNGS:crackle RUL with cleared with cough HEART: Regular rate and rhythm, S1, S2 without murmur, rub or gallop. ABDOMEN: Soft, nontender, nondistended, normoactive bowel sounds, no guarding, no rebound, no hepatosplenomegaly, no masses. EXTREMITIES: 2+ pulses, warm, well-perfused, trace edema NEUROLOGICAL: Cranial nerves II through XII grossly intact. Normal speech, gait not observed. Laboratory Results - last 24 hr 01/03/19 01/06/19 01/06/19 10:00 05:30 05:30 WBC 4.3 RBC 3.00 L Hgb 9.2 L Hct 27.1 L MCV 90.3 MCH 30.5 MCHC 33.8 RDW 19.3 H Plt Count 133 L MPV 9.7 Absolute Neuts (auto) 2.3 Neutrophils % 53.8 Lymphocytes % 27.8 Monocytes % 17.0 H Eosinophils % 1.0 Basophils % 0.4 Nucleated RBC % 0 Sodium 139 Potassium 3.4 L Chloride 102 Carbon Dioxide 28 Anion Gap 9 BUN 17 Creatinine 0.7 Creat Clearance w eGFR > 60 Random Glucose 85 Calcium 8.7 Total Bilirubin 0.9 AST 13 L ALT 13 Alkaline Phosphatase 54 Total Protein 7.4 Albumin 1.6 L Blood Type B POSITIVE Antibody Screen Negative Crossmatch See Detail Active Medications Generic Name Dose Route Start Last Admin Trade Name Freq PRN Reason Stop Dose Admin Acetaminophen 650 mg 01/03/19 20:10 01/03/19 20:28 Tylenol - PO 650 mg Q6H PRN Administration PAIN Albuterol/Ipratropium 1 amp 12/30/18 13:39 01/05/19 06:03 Duoneb - NEB 1 amp Q6H PRN Administration SHORTNESS OF BREATH Allopurinol 300 mg 12/30/18 13:45 01/06/19 12:07 Zyloprim - PO 300 mg DAILY [facility] Administration Aspirin 81 mg 12/30/18 14:00 01/06/19 12:06 Asa - PO 81 mg DAILY [facility] Administration Atorvastatin Calcium 40 mg 12/30/18 22:00 01/05/19 21:25 Lipitor - PO 40 mg HS [facility] Administration Atovaquone 1,500 mg 12/31/18 08:00 01/05/19 09:44 Mepron - PO 1,500 mg 0800 [facility] Administration Clopidogrel Bisulfate 75 mg 12/31/18 10:00 01/06/19 12:06 Plavix - PO 75 mg DAILY [facility] Administration Furosemide 40 mg 01/04/19 14:00 01/06/19 06:49 Lasix - PO 40 mg BID@0600,1400 [facility] Administration Heparin Sodium (Porcine) 5,000 unit 12/30/18 22:00 01/06/19 12:07 Heparin - SQ 5,000 unit BID [facility] Administration Hydrocortisone 1 applic 01/04/19 10:00 01/06/19 12:06 Anusol 2.5% Hc Cream - [place] 1 applic DAILY [facility] Administration Levothyroxine Sodium 50 mcg 12/31/18 07:00 01/06/19 06:49 Synthroid - PO 50 mcg DAILY@0700 [facility] Administration Losartan Potassium 25 mg 01/05/19 13:30 01/06/19 12:07 Cozaar - PO 25 mg DAILY [facility] Administration Metoprolol Succinate 12.5 mg 12/31/18 10:00 01/06/19 12:06 Toprol Xl - PO 12.5 mg DAILY [facility] Administration Pantoprazole Sodium 40 mg 12/30/18 13:45 01/06/19 12:07 Protonix - PO 40 mg DAILY [facility] Administration ASSESSMENT/PLAN: This is a 73 year old AA female with multiple myeloma/amyloid, presenting in acute respiratory failure due to CHF, now improving. Multiple Myeloma/amyloid anemia of chronic dz CAD Pulmonary HTN Acute on chronic CHF hx of GI bleed -blood counts stable -resume chemo as outpatient Visit type - Emergency Visit Emergency Visit: Yes ED Registration Date: 12/30/18 Care time: The patient presented to the Emergency Department on the above date and was hospitalized for further evaluation of their emergent condition. - New Patient This patient is new to me today: No - Critical Care Critical Care patient: No
[2019-01-06] MEDS: ATORVASTATIN CA 40 MG TABLET (FP) PO SCH (21:40)
--- NOTE | 2019-01-06 21:48 | PN ---
Progress Note (short form) - Note Progress Note: PAtient seen nd examined Feels better Last Vital Signs Temp Pulse Resp BP Pulse Ox 98.6 F 102 H 20 114/71 95 01/06/19 18:00 01/06/19 18:00 01/06/19 18:00 01/06/19 18:00 01/06/19 12:43 Cor: RSR, No murmurs, No gallops Lungs: Clear to P&A Abd: Soft, Normal bowel sounds, No organomegaly Ext:No significant edema Abnormal Lab Results 01/03/19 01/06/19 01/06/19 10:00 05:30 05:30 RBC 3.00 L Hgb 9.2 L Hct 27.1 L RDW 19.3 H Plt Count 133 L Monocytes % 17.0 H Potassium 3.4 L AST 13 L Albumin 1.6 L Crossmatch See Detail Active Medications Generic Name Dose Route Start Last Admin Trade Name Freq PRN Reason Stop Dose Admin Acetaminophen 650 mg 01/03/19 20:10 01/03/19 20:28 Tylenol - PO 650 mg Q6H PRN Administration PAIN Albuterol/Ipratropium 1 amp 12/30/18 13:39 01/05/19 06:03 Duoneb - NEB 1 amp Q6H PRN Administration SHORTNESS OF BREATH Allopurinol 300 mg 12/30/18 13:45 01/06/19 12:07 Zyloprim - PO 300 mg DAILY [facility] Administration Aspirin 81 mg 12/30/18 14:00 01/06/19 12:06 Asa - PO 81 mg DAILY [facility] Administration Atorvastatin Calcium 40 mg 12/30/18 22:00 01/06/19 21:40 Lipitor - PO 40 mg HS [facility] Administration Atovaquone 1,500 mg 12/31/18 08:00 01/06/19 08:00 Mepron - PO 1,500 mg 0800 [facility] Administration Clopidogrel Bisulfate 75 mg 12/31/18 10:00 01/06/19 12:06 Plavix - PO 75 mg DAILY [facility] Administration Furosemide 40 mg 01/04/19 14:00 01/06/19 15:54 Lasix - PO 40 mg BID@0600,1400 [facility] Administration Heparin Sodium (Porcine) 5,000 unit 12/30/18 22:00 01/06/19 12:07 Heparin - SQ 5,000 unit BID [facility] Administration Hydrocortisone 1 applic 01/04/19 10:00 01/06/19 12:06 Anusol 2.5% Hc Cream - [place] 1 applic DAILY [facility] Administration Levothyroxine Sodium 50 mcg 12/31/18 07:00 01/06/19 06:49 Synthroid - PO 50 mcg DAILY@0700 [facility] Administration Losartan Potassium 25 mg 01/05/19 13:30 01/06/19 12:07 Cozaar - PO 25 mg DAILY [facility] Administration Metoprolol Succinate 12.5 mg 12/31/18 10:00 01/06/19 12:06 Toprol Xl - PO 12.5 mg DAILY [facility] Administration Pantoprazole Sodium 40 mg 12/30/18 13:45 01/06/19 12:07 Protonix - PO 40 mg DAILY [facility] Administration Potassium Chloride 20 meq 01/07/19 10:00 K-Dur - PO DAILY [facility] Valacyclovir HCl 500 mg 01/07/19 10:00 Valtrex - PO DAILY [facility] a/p 73 y/o patient with myeloma/amyloid, recent coronary stents, on asa/plavix, now with CHF rectal bleeding/anemia transfused PRBCs myeloma/amyloid --on velcade/cytoxan/dex. holding this week diuresis/bp meds per renal/cardio discussed with cardiology/pulmonary discussed with patient and son in detail Potasium replacement willneed f/u in the office 01/12/19
--- NOTE | 2019-01-06 23:53 | PN ---
Progress Note, Physician History of Present Illness: Pt feeling SOB today - Current Medication List Current Medications: Active Medications Acetaminophen (Tylenol -) 650 mg PO Q6H PRN PRN Reason: PAIN Last Admin: 01/03/19 20:28 Dose: 650 mg Albuterol/Ipratropium (Duoneb -) 1 amp NEB Q6H PRN PRN Reason: SHORTNESS OF BREATH Last Admin: 01/05/19 06:03 Dose: 1 amp Allopurinol (Zyloprim -) 300 mg PO DAILY [facility] Last Admin: 01/06/19 12:07 Dose: 300 mg Aspirin (Asa -) 81 mg PO DAILY [facility] Last Admin: 01/06/19 12:06 Dose: 81 mg Atorvastatin Calcium (Lipitor -) 40 mg PO HS [facility] Last Admin: 01/06/19 21:40 Dose: 40 mg Atovaquone (Mepron -) 1,500 mg PO 0800 [facility] Last Admin: 01/06/19 08:00 Dose: 1,500 mg Clopidogrel Bisulfate (Plavix -) 75 mg PO DAILY [facility] Last Admin: 01/06/19 12:06 Dose: 75 mg Furosemide (Lasix -) 40 mg PO BID@0600,1400 [facility] Last Admin: 01/06/19 15:54 Dose: 40 mg Hydrocortisone (Anusol 2.5% Hc Cream -) 1 applic [place] DAILY [facility] Last Admin: 01/06/19 12:06 Dose: 1 applic Levothyroxine Sodium (Synthroid -) 50 mcg PO DAILY@0700 [facility] Last Admin: 01/06/19 06:49 Dose: 50 mcg Losartan Potassium (Cozaar -) 25 mg PO DAILY [facility] Last Admin: 01/06/19 12:07 Dose: 25 mg Metoprolol Succinate (Toprol Xl -) 12.5 mg PO DAILY [facility] Last Admin: 01/06/19 12:06 Dose: 12.5 mg Pantoprazole Sodium (Protonix -) 40 mg PO DAILY [facility] Last Admin: 01/06/19 12:07 Dose: 40 mg Potassium Chloride (K-Dur -) 20 meq PO DAILY [facility] Valacyclovir HCl (Valtrex -) 500 mg PO DAILY [facility] - Objective Vital Signs: Vital Signs Temperature 98.6 F 01/06/19 18:00 Pulse Rate 102 H 01/06/19 18:00 Respiratory Rate 20 01/06/19 18:00 Blood Pressure 114/71 01/06/19 18:00 O2 Sat by Pulse Oximetry (%) 95 01/06/19 12:43 Neck: Yes: WNL, Supple Cardiovascular: Yes: WNL, Regular Rate and Rhythm, Murmur Respiratory: Yes: WNL, Regular, CTA Bilaterally Gastrointestinal: Yes: WNL, Normal Bowel Sounds, Soft Edema: LLE: Trace, RLE: Trace Labs: CBC, BMP 01/06/19 05:30 01/06/19 05:30 INR, PTT INR 1.18 (0.83-1.09) H 12/30/18 05:15 Problem List - Problems (1) Acute on chronic systolic CHF (congestive heart failure) Assessment/Plan: Cont PO lasix Monitor electrolytes As per cardio Pt does not qualify for home O2 Code(s): I50.23 - ACUTE ON CHRONIC SYSTOLIC (CONGESTIVE) HEART FAILURE (2) Acute respiratory failure Assessment/Plan: Due to volume overload Cont diuresis and monitor May need home O2 Code(s): J96.00 - ACUTE RESPIRATORY FAILURE, UNSP W HYPOXIA OR HYPERCAPNIA (3) Anemia Assessment/Plan: Rectal bleed due to rectal polyp S/P transfusion 1 unit PRBC's Will need to try to hold off on colonoscopy H/H remains stable Code(s): D64.9 - ANEMIA, UNSPECIFIED (4) CAD (coronary artery disease) Code(s): I25.10 - ATHSCL HEART DISEASE OF [place] CORONARY ARTERY W/O ANG PCTRS Qualifiers: Coronary Disease-Associated Artery/Lesion type: [place] artery Associated angina: without angina (5) CKD (chronic kidney disease) Code(s): N18.9 - CHRONIC KIDNEY DISEASE, UNSPECIFIED (6) Multiple myeloma Code(s): C90.00 - MULTIPLE MYELOMA NOT HAVING ACHIEVED REMISSION Qualifiers: Multiple myeloma remission status: not in remission Qualified Code(s): C90.00 - Multiple myeloma not having achieved remission (7) HLD (hyperlipidemia) Code(s): E78.5 - HYPERLIPIDEMIA, UNSPECIFIED Qualifiers: Hyperlipidemia type: unspecified Qualified Code(s): E78.5 - Hyperlipidemia , unspecified (8) HTN (hypertension) Code(s): I10 - ESSENTIAL (PRIMARY) HYPERTENSION Qualifiers: Hypertension type: essential hypertension Qualified Code(s): I10 - Essential (primary) hypertension (9) Hypothyroidism Code(s): E03.9 - HYPOTHYROIDISM, UNSPECIFIED Qualifiers: Hypothyroidism type: acquired Qualified Code(s): E03.9 - Hypothyroidism, unspecified
[2019-01-07] MEDS: FUROSEMIDE 40 MG TABLET (FP) PO SCH (05:30)
[2019-01-07] MEDS: LEVOTHYROXINE NA 50 MCG TABLET (FP) PO SCH (06:02)
[2019-01-07 07:34] LABS: BASO % 0.7 % (0-2.0); EOS % 0.8 % (0-4.5); HEMATOCRIT 31.1 % (32.4-45.2); HEMOGLOBIN 10.5 GM/dL (10.7-15.3); MCH 31.3 pg (25.7-33.7); MCHC 33.8 g/dl (32.0-36.0); MEAN CELL VOLUME 92.8 fl (80-96); MEAN PLT VOLUME 10.2 fl (7.5-11.1); MONO % 15.4 % (3.8-10.2); NEUT % 52.1 % (42.8-82.8); PLATELET COUNT 155 K/MM3 (134-434); RBC 3.35 M/mm3 (3.60-5.2); RDW 19.1 % (11.6-15.6); WHITE BLOOD COUNT 4.3 K/mm3 (4.0-10.0)
[2019-01-07 08:31] LABS: ALBUMIN 1.7 g/dl (3.4-5.0); ALK PHOS 59 U/L (45-117); ANION GAP 10 MMOL/L (8-16); BILIRUBIN,TOTAL 0.6 mg/dL (0.2-1); BLOOD UREA NITROGEN 17 mg/dL (7-18); CALCIUM 8.9 mg/dL (8.5-10.1); CHLORIDE 100 mmol/L (98-107); CO2 28 mmol/L (21-32); CREATININE 0.9 mg/dL (0.55-1.3); GLUCOSE,RANDOM 80 mg/dL (74-106); MAGNESIUM 1.9 mg/dL (1.8-2.4); POTASSIUM 3.8 mmol/L (3.5-5.1); SGOT/AST 12 U/L (15-37); SGPT/ALT 15 U/L (13-61); SODIUM 139 mmol/L (136-145); TOT PROT 8.1 g/dl (6.4-8.2)
--- NOTE | 2019-01-07 08:46 | PN ---
Progress Note, Physician History of Present Illness: GI FOLLOW UP NOTE Patient examined and case discussed with Dr. Perkins Patient denies rectal bleeding and states that rectal pain has improved. Patient denies abdominal pain, nausea, vomiting, diarrhea. - Current Medication List Current Medications: Active Medications Acetaminophen (Tylenol -) 650 mg PO Q6H PRN PRN Reason: PAIN Last Admin: 01/03/19 20:28 Dose: 650 mg Albuterol/Ipratropium (Duoneb -) 1 amp NEB Q6H PRN PRN Reason: SHORTNESS OF BREATH Last Admin: 01/05/19 06:03 Dose: 1 amp Allopurinol (Zyloprim -) 300 mg PO DAILY [facility] Last Admin: 01/06/19 12:07 Dose: 300 mg Aspirin (Asa -) 81 mg PO DAILY [facility] Last Admin: 01/06/19 12:06 Dose: 81 mg Atorvastatin Calcium (Lipitor -) 40 mg PO HS [facility] Last Admin: 01/06/19 21:40 Dose: 40 mg Atovaquone (Mepron -) 1,500 mg PO 0800 [facility] Last Admin: 01/06/19 08:00 Dose: 1,500 mg Clopidogrel Bisulfate (Plavix -) 75 mg PO DAILY [facility] Last Admin: 01/06/19 12:06 Dose: 75 mg Furosemide (Lasix -) 40 mg PO BID@0600,1400 [facility] Last Admin: 01/07/19 05:30 Dose: 40 mg Hydrocortisone (Anusol 2.5% Hc Cream -) 1 applic ME DAILY [facility] Last Admin: 01/06/19 12:06 Dose: 1 applic Levothyroxine Sodium (Synthroid -) 50 mcg PO DAILY@0700 [facility] Last Admin: 01/07/19 06:02 Dose: 50 mcg Losartan Potassium (Cozaar -) 25 mg PO DAILY [facility] Last Admin: 01/06/19 12:07 Dose: 25 mg Metoprolol Succinate (Toprol Xl -) 12.5 mg PO DAILY [facility] Last Admin: 01/06/19 12:06 Dose: 12.5 mg Pantoprazole Sodium (Protonix -) 40 mg PO DAILY [facility] Last Admin: 01/06/19 12:07 Dose: 40 mg Potassium Chloride (K-Dur -) 20 meq PO DAILY [facility] Valacyclovir HCl (Valtrex -) 500 mg PO DAILY [facility] - Objective Vital Signs: Vital Signs Temperature 98.4 F 01/07/19 07:10 Pulse Rate 101 H 01/07/19 07:10 Respiratory Rate 20 01/07/19 07:10 Blood Pressure 108/64 01/07/19 07:10 O2 Sat by Pulse Oximetry (%) 97 01/06/19 21:00 Constitutional: Yes: No Distress, Calm Eyes: Yes: Conjunctiva Clear HENT: Yes: Atraumatic Cardiovascular: Yes: Regular Rate and Rhythm Respiratory: Yes: Regular, CTA Bilaterally Gastrointestinal: Yes: Normal Bowel Sounds, Soft, Other (non tender) Neurological: Yes: Alert, Oriented Labs: CBC, BMP 01/07/19 06:00 01/07/19 06:00 INR, PTT INR 1.18 (0.83-1.09) H 12/30/18 05:15 Problem List - Problems (1) Rectal bleed Assessment/Plan: >monitor H/H daily >current Hg 10.5 >transfuse PRBC when Hg <8.0 >emergent CTA of Abdomen if profuse bleeding noted from rectum >patient instructed to follow up with GI as outpatient for further managament Code(s): K62.5 - HEMORRHAGE OF ANUS AND RECTUM (2) Rectal pain Assessment/Plan: >continue with annusol cream daily Code(s): K62.89 - OTHER SPECIFIED DISEASES OF ANUS AND RECTUM
--- NOTE | 2019-01-07 09:43 | PN ---
Progress Note, Physician Chief Complaint: Feeling well No acute distress - Current Medication List Current Medications: Active Medications Acetaminophen (Tylenol -) 650 mg PO Q6H PRN PRN Reason: PAIN Last Admin: 01/03/19 20:28 Dose: 650 mg Albuterol/Ipratropium (Duoneb -) 1 amp NEB Q6H PRN PRN Reason: SHORTNESS OF BREATH Last Admin: 01/05/19 06:03 Dose: 1 amp Allopurinol (Zyloprim -) 300 mg PO DAILY [facility] Last Admin: 01/06/19 12:07 Dose: 300 mg Aspirin (Asa -) 81 mg PO DAILY [facility] Last Admin: 01/06/19 12:06 Dose: 81 mg Atorvastatin Calcium (Lipitor -) 40 mg PO HS [facility] Last Admin: 01/06/19 21:40 Dose: 40 mg Atovaquone (Mepron -) 1,500 mg PO 0800 [facility] Last Admin: 01/06/19 08:00 Dose: 1,500 mg Clopidogrel Bisulfate (Plavix -) 75 mg PO DAILY [facility] Last Admin: 01/06/19 12:06 Dose: 75 mg Furosemide (Lasix -) 40 mg PO BID@0600,1400 [facility] Last Admin: 01/07/19 05:30 Dose: 40 mg Hydrocortisone (Anusol 2.5% Hc Cream -) 1 applic IN DAILY [facility] Last Admin: 01/06/19 12:06 Dose: 1 applic Levothyroxine Sodium (Synthroid -) 50 mcg PO DAILY@0700 [facility] Last Admin: 01/07/19 06:02 Dose: 50 mcg Losartan Potassium (Cozaar -) 25 mg PO DAILY [facility] Last Admin: 01/06/19 12:07 Dose: 25 mg Metoprolol Succinate (Toprol Xl -) 12.5 mg PO DAILY [facility] Last Admin: 01/06/19 12:06 Dose: 12.5 mg Pantoprazole Sodium (Protonix -) 40 mg PO DAILY [facility] Last Admin: 01/06/19 12:07 Dose: 40 mg Potassium Chloride (K-Dur -) 20 meq PO DAILY [facility] Valacyclovir HCl (Valtrex -) 500 mg PO DAILY [facility] - Objective Vital Signs: Vital Signs Temperature 98.4 F 01/07/19 07:10 Pulse Rate 101 H 01/07/19 07:10 Respiratory Rate 20 01/07/19 07:10 Blood Pressure 108/64 01/07/19 07:10 O2 Sat by Pulse Oximetry (%) 97 01/06/19 21:00 Constitutional: Yes: No Distress, Calm Eyes: Yes: Conjunctiva Clear Cardiovascular: Yes: Regular Rate and Rhythm Respiratory: Yes: CTA Bilaterally (no rales or wheezing) Gastrointestinal: Yes: Soft (NT) Edema: Yes Edema: LLE: Trace, RLE: Trace Neurological: Yes: Alert, Oriented Labs: CBC, BMP 01/07/19 06:00 01/07/19 06:00 INR, PTT INR 1.18 (0.83-1.09) H 12/30/18 05:15 Laboratory Tests 12/30/18 01/07/19 01/07/19 06:38 06:00 06:00 WBC 4.3 Hgb 10.5 L Plt Count 155 Sodium 139 Potassium 3.8 Creatinine 0.9 Stool Occult Blood Negative Problem List - Problems (1) Acute on chronic systolic CHF (congestive heart failure) Code(s): I50.23 - ACUTE ON CHRONIC SYSTOLIC (CONGESTIVE) HEART FAILURE (2) CAD (coronary artery disease) Code(s): I25.10 - ATHSCL HEART DISEASE OF [place] CORONARY ARTERY W/O ANG PCTRS Qualifiers: Coronary Disease-Associated Artery/Lesion type: [place] artery Associated angina: without angina (3) Multiple myeloma Code(s): C90.00 - MULTIPLE MYELOMA NOT HAVING ACHIEVED REMISSION Qualifiers: Multiple myeloma remission status: not in remission Qualified Code(s): C90.00 - Multiple myeloma not having achieved remission (4) Anemia Code(s): D64.9 - ANEMIA, UNSPECIFIED Qualifiers: Chronic kidney disease stage: unspecified stage (5) Elevated troponin I level Code(s): R74.8 - ABNORMAL LEVELS OF OTHER SERUM ENZYMES Assessment/Plan IMP: Acute on chronic systolic CHF Cardiomyopathy, mild LV systolic dysfunction Recent NSTEMI s/p HOLLY D1 Multiple myeloma on chemotherapy Chronic Anemia- guaiac negative, but known rectal polyp REC: 1. Clinically improved with several days lasix gtts: now switched to PO 40mg BID and remains stable. 2. Continue low dose Toprol, tolerated well (CAD/CHF w/ mild LV dysfx). 3. Now on ARB. 4. To continue ASA/Plavix/Atorvastatin s/p recent NSTEMI w/ HOLLY to D1 (new generation HOLLY will require Plavix for 3 months, ASA lifelong). Will need to remain on DAPT for at least 3 months (recent NSTEMI and HOLLY). If removal of rectal polyp can be held until then may be optimal. This depends on clinical course. 5. Pre and post exercise O2 sat to assess for need for home O2 6. Discharge planning. Needs cardiology outpatient f/u w/ Dr. Bernadine Aparicio at [address] [place] [address] ([phone]) in 1 week.
[2019-01-07] MEDS ORDERED: valACYclovir HCL 500 MG TABLET (FP) PO SCH (10:00)
[2019-01-07] MEDS ORDERED: POTASSIUM CHLORIDE TABS 10 MEQ TABLET.ER (FP) PO SCH (10:00)
[2019-01-07] MEDS: CLOPIDOGREL BISULFATE 75 MG TABLET (FP) PO SCH (11:06)
[2019-01-07] MEDS: ASPIRIN 81 MG CHEWABLE TABLETS PO SCH (11:06)
[2019-01-07] MEDS: ATOVAQUONE 750 MG/5 ML (UNIT-DOSE PACKAGING) PO SCH (11:06)
[2019-01-07] MEDS: PANTOPRAZOLE 40 MG TABLET (FP) PO SCH (11:06)
[2019-01-07] MEDS: ALLOPURINOL 300 MG TABLET (FP) PO SCH (11:07)
[2019-01-07] MEDS: HYDROCORTISONE 2.5% TOPICAL CREAM 30 GM TUBE PR SCH (11:08)
--- NOTE | 2019-01-07 11:34 | PN ---
Progress Note (short form) - Note Progress Note: Patient seen and examined Feels well but had blood on toilet paper this morning Last Vital Signs Temp Pulse Resp BP Pulse Ox 98.4 F 101 H 20 108/64 97 01/07/19 07:10 01/07/19 07:10 01/07/19 07:10 01/07/19 07:10 01/06/19 21:00 HEENT: ZOILA, EOM Intact Oropharynx: No thrush, No mucositis Cor: RSR, No murmurs, No gallops Lungs: Clear to P&A Abd: Soft, Normal bowel sounds, No organomegaly Ext:No significant edema Skin: No rashes, Integument intact CBC, BMP 01/07/19 06:00 01/07/19 06:00 Current Medications Generic Name Dose Route Start Last Admin Trade Name Freq PRN Reason Stop Dose Admin Acetaminophen 650 mg 01/03/19 20:10 01/03/19 20:28 Tylenol - PO 650 mg Q6H PRN Administration PAIN Albuterol/Ipratropium 1 amp 12/30/18 13:39 01/05/19 06:03 Duoneb - NEB 1 amp Q6H PRN Administration SHORTNESS OF BREATH Allopurinol 300 mg 12/30/18 13:45 01/07/19 11:07 Zyloprim - PO 300 mg DAILY [facility] Administration Aspirin 81 mg 12/30/18 14:00 01/07/19 11:06 Asa - PO 81 mg DAILY [facility] Administration Atorvastatin Calcium 40 mg 12/30/18 22:00 01/06/19 21:40 Lipitor - PO 40 mg HS [facility] Administration Atovaquone 1,500 mg 12/31/18 08:00 01/07/19 11:06 Mepron - PO 1,500 mg 0800 [facility] Administration Clopidogrel Bisulfate 75 mg 12/31/18 10:00 01/07/19 11:06 Plavix - PO 75 mg DAILY [facility] Administration Furosemide 40 mg 01/04/19 14:00 01/07/19 05:30 Lasix - PO 40 mg BID@0600,1400 [facility] Administration Hydrocortisone 1 applic 01/04/19 10:00 01/07/19 11:08 Anusol 2.5% Hc Cream - SD 1 applic DAILY [facility] Administration Levothyroxine Sodium 50 mcg 12/31/18 07:00 01/07/19 06:02 Synthroid - PO 50 mcg DAILY@0700 [facility] Administration Losartan Potassium 25 mg 01/05/19 13:30 01/06/19 12:07 Cozaar - PO 25 mg DAILY [facility] Administration Metoprolol Succinate 12.5 mg 12/31/18 10:00 01/06/19 12:06 Toprol Xl - PO 12.5 mg DAILY [facility] Administration Pantoprazole Sodium 40 mg 12/30/18 13:45 01/07/19 11:06 Protonix - PO 40 mg DAILY [facility] Administration Potassium Chloride 20 meq 01/07/19 10:00 01/07/19 11:07 K-Dur - PO 20 meq DAILY [facility] Administration Valacyclovir HCl 500 mg 01/07/19 10:00 01/07/19 11:07 Valtrex - PO 500 mg DAILY [facility] Administration Impression: Multiple myeloma /Amyloid Rectal bleeding Anemia- chronic disease Acute/chronic CHF Pulmonary hypertension Plan: Hct- 31% --previously at 27% GI follow up Follow up with Dr. Stuart as outpatient to resume chemotherpay.
[2019-01-07 15:48] VITALS: BP 96/60; PULSE 90; TEMP 98.6
[2019-01-07] MEDS: LOSARTAN POTASSIUM 25 MG TABLET PO SCH (15:52)
[2019-01-07] MEDS: metoPROLOL SUCCINATE 25 MG TAB.SR.24H (FP) PO SCH (15:53)
[2019-01-10 20:00] VITALS: BMI 24.9
== END 2019-01-07 13:20 | disposition home health service (06) | DRG 291 ==
LOC: JER 04:54 → JERBED 06:39 → J4W 16:52 → J5W 01-01 18:23 → J4W 01-01 20:13 → J8W 01-06 18:13
PROVIDERS: ADMIT Internal Medicine; ATTEND Internal Medicine
DX: I13.0 Hypertensive heart and chronic kidney disease with heart failure and stage 1 through stage 4 chronic kidney disease, or unspecified chronic kidney disease (principal); J96.00 Acute respiratory failure, unspecified whether with hypoxia or hypercapnia; I50.23 Acute on chronic systolic (congestive) heart failure; C90.00 Multiple myeloma not having achieved remission; E85.4 Organ-limited amyloidosis; K62.5 Hemorrhage of anus and rectum; I25.10 Atherosclerotic heart disease of native coronary artery without angina pectoris; I48.0 Paroxysmal atrial fibrillation; E78.5 Hyperlipidemia, unspecified; K44.9 Diaphragmatic hernia without obstruction or gangrene; K76.89 Other specified diseases of liver; E03.9 Hypothyroidism, unspecified; F32.9 Major depressive disorder, single episode, unspecified; R74.8 Abnormal levels of other serum enzymes; K62.1 Rectal polyp; I27.20 Pulmonary hypertension, unspecified; I95.9 Hypotension, unspecified; I42.0 Dilated cardiomyopathy; R82.71 Bacteriuria; L99 Other disorders of skin and subcutaneous tissue in diseases classified elsewhere; I25.2 Old myocardial infarction; K62.89 Other specified diseases of anus and rectum; D63.8 Anemia in other chronic diseases classified elsewhere; N18.9 Chronic kidney disease, unspecified; L89.151 Pressure ulcer of sacral region, stage 1
CPT/HCPCS: 36415; 36430; 71045-TC-FY; 71275-TC; 80048; 80053; 81003; 81015; 82272; 82550; 82570; 82803; 83735; 83880; 84156; 84439; 84443; 84484; 85025; 85027; 85379; 85610; 86850; 86900; 86901; 86922; 87040; 87086; 87186; 93005; 93010; 93306-TC; 94640; 94660; 94761; 97116-GP; 97162-GP; 99285-25; J1644; P9038; P9058

== ENCOUNTER 2019-01-12 06:01 | Day surgery (SDC) | payer OTHER ==
[2019-01-12] MEDS ORDERED: DEXAMETHASONE 4 MG TABLET (FP) PO ONE (08:00)
[2019-01-12] MEDS ORDERED: ONDANSETRON INJECTION 8 MG in SODIUM CHLORIDE 50 ML IVPB ONE (08:00)
[2019-01-12] MEDS ORDERED: CYCLOPHOSPHAMIDE 50 MG CAPSULE PO ONE (08:30)
[2019-01-12] MEDS ORDERED: BORTEZOMIB (VELCADE) 2.5 MG/ML SUB-Q INJECTION SQ ONE (08:30)
[2019-01-12 09:05] VITALS: BP 99/61; PULSE 103; TEMP 99.4
[2019-01-12] MEDS ORDERED: ONDANSETRON *ODT* 4 MG TABLET SL ONE (09:30)
[2019-01-12 09:38] LABS: BASO % 0.9 % (0-2.0); EOS % 0.6 % (0-4.5); HEMATOCRIT 29.3 % (32.4-45.2); LYMPH % 31.4 % (8-40); MCH 31.7 pg (25.7-33.7); MCHC 34.1 g/dl (32.0-36.0); MEAN CELL VOLUME 92.9 fl (80-96); MEAN PLT VOLUME 8.8 fl (7.5-11.1); MONO % 11.8 % (3.8-10.2); NEUT % 55.3 % (42.8-82.8); PLATELET COUNT 177 K/MM3 (134-434); RBC 3.16 M/mm3 (3.60-5.2); RDW 19.3 % (11.6-15.6); WHITE BLOOD COUNT 4.1 K/mm3 (4.0-10.0)
[2019-01-12 10:03] LABS: ALBUMIN 1.9 g/dl (3.4-5.0); ALK PHOS 55 U/L (45-117); ANION GAP 9 MMOL/L (8-16); BILIRUBIN,DIRECT 0.2 mg/dL (0.0-0.2); BILIRUBIN,TOTAL 0.4 mg/dL (0.2-1); BLOOD UREA NITROGEN 21 mg/dL (7-18); CALCIUM 9.7 mg/dL (8.5-10.1); CHLORIDE 105 mmol/L (98-107); CO2 27 mmol/L (21-32); CREATININE 1.2 mg/dL (0.55-1.3); GLUCOSE,RANDOM 111 mg/dL (74-106); MAGNESIUM 2.1 mg/dL (1.8-2.4); POTASSIUM 3.3 mmol/L (3.5-5.1); SGOT/AST 15 U/L (15-37); SGPT/ALT 15 U/L (13-61); SODIUM 140 mmol/L (136-145); TOT PROT 8.6 g/dl (6.4-8.2)
[2019-01-12] MEDS ORDERED: POTASSIUM CHLORIDE TABS 20 MEQ TABLET.ER (FP) PO ONE (11:15)
== END 2019-01-12 11:35 | disposition home or self-care (01) ==
LOC: JONCCHEMO 06:01 → J7W 09:43 → JONCCHEMO 11:35
PROVIDERS: ATTEND Internal Medicine Hematology & Oncology
DX: Z51.11 Encounter for antineoplastic chemotherapy (principal); C90.00 Multiple myeloma not having achieved remission
CPT/HCPCS: 36415; 80053; 80076; 82784; 83735; 84155; 84165; 85025; 86334; 96401; J9041; Q0162

== ENCOUNTER 2019-01-15 17:40 | Inpatient (IN) | payer OTHER ==
[2019-01-15] MEDS ORDERED: ASPIRIN 81 MG CHEWABLE TABLETS PO ONE (17:55)
[2019-01-15] MEDS ORDERED: ASPIRIN 81 MG CHEWABLE TABLETS ONE (17:57)
--- NOTE | 2019-01-15 18:13 | PDOC ---
History of Present Illness - General Chief Complaint: Lightheaded Stated Complaint: DIZZY Time Seen by Provider: 01/15/19 18:12 History Source: Patient Exam Limitations: No Limitations Past History - Past Medical History Allergies/Adverse Reactions: Allergies Allergy/AdvReac Type Severity Reaction Status Date / Time Penicillins Allergy Severe Rash Verified 01/15/19 17:46 Home Medications: Ambulatory Orders Gabapentin 300 mg PO DAILY 06/14/13 Diltiazem Cd [Cardizem Cd -] 240 mg PO DAILY 10/11/18 [place]-3/Dha/Epa/Fish Oil [[place] 3 500 Softgel] 1 each PO DAILY 10/11/18 Allopurinol [Zyloprim -] 300 mg PO DAILY #30 tablet 11/09/18 Levothyroxine [Synthroid -] 50 mcg PO DAILY@0700 #30 tablet 11/09/18 Pantoprazole Sodium [Protonix -] 40 mg PO DAILY #30 tablet.ec 11/09/18 Atovaquone 1,500 mg PO DAILY #300 ml 11/10/18 Aspirin [ASA -] 81 mg PO DAILY 12/30/18 Acetaminophen [Tylenol .Regular Strength -] 650 mg PO Q6H PRN #100 tablet Albuterol 2.5/Ipratropium 0.5 [Duoneb -] 1 amp NEB Q6H PRN #30 amp 01/07/19 Atorvastatin Ca [Lipitor] 40 mg PO HS #30 tablet 01/07/19 Clopidogrel Bisulfate [Plavix -] 75 mg PO DAILY #30 tablet 01/07/19 Furosemide [Lasix -] 40 mg PO BID@0600,1400 #60 tablet 01/07/19 Losartan Potassium [Cozaar -] 25 mg PO DAILY #30 tablet 01/07/19 Metoprolol Succinate [Toprol XL -] 12.5 mg PO DAILY #30 tab.sr.24h 01/07/19 Potassium Chloride [K-Dur -] 20 meq PO DAILY #30 tablet.er 01/07/19 Valacyclovir HCl [Valtrex -] 500 mg PO DAILY #30 tablet 01/07/19 Anemia: Yes Asthma: Yes Cancer: Yes (myeloma) Cardiac Disorders: Yes (STENTX1 P) CVA: No COPD: No CHF: No Dementia: No Diabetes: No GI Disorders: Yes (HIATAL HERNIA) Disorders: No HTN: Yes Hypercholesterolemia: Yes Liver Disease: Yes (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) Seizures: No Thyroid Disease: Yes (Hypothyroidism ) - Surgical History Abdominal Surgery: Yes Appendectomy: No Cardiac Surgery: No Cholecystectomy: No Lung Surgery: No Neurologic Surgery: No Orthopedic Surgery: Yes (carpal tunnel ) - Immunization History Immunization Up to Date: Yes - Suicide/Smoking/Psychosocial Hx Smoking History: Unknown if ever smoked Have you smoked in the past 12 months: No Number of Cigarettes Smoked Daily: 0 If you are a former smoker, when did you quit?: 1987 Cigars Per Day: 0 Hx Alcohol Use: No Drug/Substance Use Hx: No Substance Use Type: None Hx Substance Use Treatment: No *Physical Exam - Vital Signs Last Vital Signs Temp Pulse Resp BP Pulse Ox 98.7 F 99 H 18 98/59 L 99 01/15/19 17:48 01/15/19 17:48 01/15/19 17:48 01/15/19 17:48 01/15/19 17:48 Moderate Sedation - Procedure Monitoring Vital Signs: Procedure Monitoring Vital Signs Temperature 98.7 F 01/15/19 17:48 Pulse Rate 99 H 01/15/19 17:48 Respiratory Rate 18 01/15/19 17:48 Blood Pressure 98/59 L 01/15/19 17:48 O2 Sat by Pulse Oximetry (%) 99 01/15/19 17:48 ED Treatment Course - RADIOLOGY Radiology Studies Ordered: Category Date Time Status CHEST X-RAY PORTABLE* [RAD] Stat Radiology 01/15/19 17:55 Ordered *DC/Admit/Observation/Transfer - Referrals Referrals: Milton Benavides MD [Primary Care Provider] - - Patient Instructions - Post Discharge Activity
[2019-01-15 18:23] LABS: BASO % 0.5 % (0-2.0); EOS % 0.2 % (0-4.5); HEMATOCRIT 29.3 % (32.4-45.2); LYMPH % 26.5 % (8-40); MCH 31.7 pg (25.7-33.7); MCHC 34.1 g/dl (32.0-36.0); MEAN PLT VOLUME 9.4 fl (7.5-11.1); MONO % 16.1 % (3.8-10.2); NEUT % 56.7 % (42.8-82.8); PLATELET COUNT 159 K/MM3 (134-434); RBC 3.16 M/mm3 (3.60-5.2); RDW 19.4 % (11.6-15.6); WHITE BLOOD COUNT 4.9 K/mm3 (4.0-10.0)
--- NOTE | 2019-01-15 18:34 | PDOC ---
History of Present Illness - General Chief Complaint: Lightheaded Stated Complaint: DIZZY Time Seen by Provider: 01/15/19 18:12 - History of Present Illness Initial Comments: 73 yo h/o myeloma on chemo, amyloidosis, gi bleed, symptomatic anemia, FREDDY s/p cardiac stenting at [facility] p/w dizziness and weakness x 2 days. Patient endorses feeling weak and dizzy since . She describes the dizziness as room spinning and it happened when she's at rest. She also endorses poor PO intake but denies melena, n/v, diarrhea, chest pain. 01/15/19 20:54 labs are essentially at baseline. waiting for dr. shell's call back regarding ekg finding 01/15/19 23:[address] Puckett. Pt will be admitted under her service. Past History - Past Medical History Allergies/Adverse Reactions: Allergies Allergy/AdvReac Type Severity Reaction Status Date / Time Penicillins Allergy Severe Rash Verified 01/15/19 17:46 Home Medications: Ambulatory Orders Gabapentin 300 mg PO DAILY 06/14/13 Diltiazem Cd [Cardizem Cd -] 240 mg PO DAILY 10/11/18 [place]-3/Dha/Epa/Fish Oil [[place] 3 500 Softgel] 1 each PO DAILY 10/11/18 Allopurinol [Zyloprim -] 300 mg PO DAILY #30 tablet 11/09/18 Levothyroxine [Synthroid -] 50 mcg PO DAILY@0700 #30 tablet 11/09/18 Pantoprazole Sodium [Protonix -] 40 mg PO DAILY #30 tablet.ec 11/09/18 Atovaquone 1,500 mg PO DAILY #300 ml 11/10/18 Aspirin [ASA -] 81 mg PO DAILY 12/30/18 Acetaminophen [Tylenol .Regular Strength -] 650 mg PO Q6H PRN #100 tablet Albuterol 2.5/Ipratropium 0.5 [Duoneb -] 1 amp NEB Q6H PRN #30 amp 01/07/19 Atorvastatin Ca [Lipitor] 40 mg PO HS #30 tablet 01/07/19 Clopidogrel Bisulfate [Plavix -] 75 mg PO DAILY #30 tablet 01/07/19 Furosemide [Lasix -] 40 mg PO BID@0600,1400 #60 tablet 01/07/19 Losartan Potassium [Cozaar -] 25 mg PO DAILY #30 tablet 01/07/19 Metoprolol Succinate [Toprol XL -] 12.5 mg PO DAILY #30 tab.sr.24h 01/07/19 Potassium Chloride [K-Dur -] 20 meq PO DAILY #30 tablet.er 01/07/19 Valacyclovir HCl [Valtrex -] 500 mg PO DAILY #30 tablet 01/07/19 Anemia: Yes Asthma: Yes Cancer: Yes (myeloma) Cardiac Disorders: Yes (STENTX1 P) CVA: No COPD: No CHF: No Dementia: No Diabetes: No GI Disorders: Yes (HIATAL HERNIA) Disorders: No HTN: Yes Hypercholesterolemia: Yes Liver Disease: Yes (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) Seizures: No Thyroid Disease: Yes (Hypothyroidism ) - Surgical History Abdominal Surgery: Yes Appendectomy: No Cardiac Surgery: No Cholecystectomy: No Lung Surgery: No Neurologic Surgery: No Orthopedic Surgery: Yes (carpal tunnel ) - Immunization History Immunization Up to Date: Yes - Suicide/Smoking/Psychosocial Hx Smoking History: Unknown if ever smoked Have you smoked in the past 12 months: No Number of Cigarettes Smoked Daily: 0 If you are a former smoker, when did you quit?: 1987 Cigars Per Day: 0 Hx Alcohol Use: No Drug/Substance Use Hx: No Substance Use Type: None Hx Substance Use Treatment: No Review of Systems - Review of Systems Able to Perform ROS?: Yes Constitutional: Yes: Loss of Appetite, Malaise, Weakness. No: Chills, Fever Respiratory: Yes: Shortness of Breath. No: Cough Cardiac (ROS): Yes: Lightheadedness. No: Chest Pain ABD/GI: No: Nausea, Vomiting : No: Burning, Dysuria *Physical Exam - Vital Signs Last Vital Signs Temp Pulse Resp BP Pulse Ox 98.7 F 99 H 18 98/59 L 99 01/15/19 17:48 01/15/19 17:48 01/15/19 17:48 01/15/19 17:48 01/15/19 17:48 - Physical Exam General Appearance: Yes: Thin. No: Apparent Distress Respiratory/Chest: positive: Lungs Clear, Normal Breath Sounds Cardiovascular: positive: Regular Rhythm, Regular Rate, S1, S2. negative: Edema , JVD, Murmur Gastrointestinal/Abdominal: positive: Normal Bowel Sounds. negative: Tender Extremity: negative: Swelling Neurologic: positive: Fully Oriented, Alert Moderate Sedation - Procedure Monitoring Vital Signs: Procedure Monitoring Vital Signs Temperature 98.7 F 01/15/19 17:48 Pulse Rate 99 H 01/15/19 17:48 Respiratory Rate 18 01/15/19 17:48 Blood Pressure 98/59 L 01/15/19 17:48 O2 Sat by Pulse Oximetry (%) 99 01/15/19 17:48 ED Treatment Course - LABORATORY CBC & Chemistry Diagram: 01/15/19 18:14 01/15/19 19:06 - ADDITIONAL ORDERS Additional order review: 01/15/19 18:14 RBC 3.16 L MCV 93.0 MCHC 34.1 RDW 19.4 H MPV 9.4 Neutrophils % 56.7 Lymphocytes % 26.5 Monocytes % 16.1 H Eosinophils % 0.2 Basophils % 0.5 *DC/Admit/Observation/Transfer Diagnosis at time of Disposition: Dizziness - Discharge Dispostion Condition at time of disposition: Stable Decision to Admit order: Yes - Referrals - Patient Instructions - Post Discharge Activity
[2019-01-15 18:35] LABS: INR 1.08 (0.83-1.09); PROTHROMBIN TIME (PATIENT) 12.7 SEC (9.7-13.0)
--- NOTE | 2019-01-15 18:45 | PDOC ---
Attending Attestation - HPI HPI: 01/15/19 19:40 The patient is a 73-year-old female with a past medical history significant for multiple myeloma, NSTEMI s/p stent placement at [facility] (December 2018), CHF , EF of 45-50% and baseline BP of 90-100 systolic presents to the emergency department with dizziness and weakness. The patient reports since () shes been having objective vertigo, associated with weakness. The patient reports secondary to the weakness, the patients been nonambulatory, states which in turn limits her food and fluid intake. The patient reports associated symptoms of leg and ankle swelling and chills. Denies dark or bloody stool, fever, chest pain. Allergies:penicillins. PCP: Dr. Alexsandra Benavides. - Physicial Exam PE: 01/15/19 18:58 GENERAL: The patient is in no acute distress. HEAD: Normal with no signs of trauma. EYES: PERRLA, EOMI, sclera anicteric, conjunctiva clear. ENT: Ears normal, nares patent, oropharynx clear without exudates. Moist mucous membranes. NECK: Normal range of motion, supple without lymphadenopathy, JVD, or masses. LUNGS: non-dyspneic. Breath sounds equal, clear to auscultation bilaterally. No wheezes, and no crackles. HEART:Regular rate and rhythm, normal S1 and S2 without murmur, rub or gallop. ABDOMEN: Soft, nontender, normoactive bowel sounds. No guarding, no rebound. No masses palpable. EXTREMITIES: Moving all extremities. No lower extremity edema. Normal range of motion, no edema. No clubbing or cyanosis. No erythema, or tenderness. NEUROLOGICAL: +patient states she was lightheaded with sitting up. Awake and alert, answering all questions. Cranial nerves II through XII grossly intact. Normal speech. No focal neurological deficits. MUSCULOSKELETAL: Back non-tender to palpation, no CVA tenderness SKIN: Warm, Dry, normal turgor, no rashes or lesions noted. - Medical Decision Making 01/15/19 18:53 Phone Calls: Call place to Dr. Ordonez at 6:53, spoke with the service, waiting for a call back. 01/15/19 19:[address] Ordonez. 01/15/19 21:[address] Puckett for admission. 01/15/19 19:03 Documentation prepared by Sis Winter, acting as medical service technician for Stephanie Ortega MD. <Sis Winter - Last Filed: 01/15/19 21:23> - Resident Resident Name: Corey Lantigua - ED Attending Attestation I have performed the following: I have examined & evaluated the patient, The case was reviewed & discussed with the resident, I agree w/resident's findings & plan, Exceptions are as noted - Medical Decision Making 01/15/19 20:44 Laboratory Tests 01/15/19 01/15/19 01/15/19 18:14 18:14 19:06 WBC 4.9 Hgb 10.0 L Hct 29.3 L Plt Count 159 INR 1.08 Sodium 138 Potassium 3.6 Chloride 103 Carbon Dioxide 24 BUN 48 H Creatinine 1.3 Creatine Kinase 56 Troponin I 0.07 H B-Natriuretic Peptide 8758.2 H Total Protein 8.4 H Albumin 1.9 L Pt presents with lightheadedness No chest pain EKG abn, sent to cardiology Pt admitted Will benefit from CTA THis was ordered Clinical Impression: lightheadedness, initial presentation <Stephanie Ortega - Last Filed: 01/19/19 18:19> *DC/Admit/Observation/Transfer <Sis Winter - Last Filed: 01/15/19 21:23> - Discharge Dispostion Decision to Admit order: Yes <Stephanie Ortega - Last Filed: 01/19/19 18:19> Diagnosis at time of Disposition: Dizziness - Discharge Dispostion Condition at time of disposition: Stable
[2019-01-15] MEDS ORDERED: ACETAMINOPHEN 1000 MG/100 ML VIAL (NON FORMULARY) IVPB ONE (19:33)
[2019-01-15] MEDS ORDERED: ACETAMINOPHEN INJECTION 100 ML IVPB ONE (19:40)
[2019-01-15 20:42] LABS: ALBUMIN 1.9 g/dl (3.4-5.0); ANION GAP 12 MMOL/L (8-16); BILIRUBIN,TOTAL 0.5 mg/dL (0.2-1); CALCIUM 10.2 mg/dL (8.5-10.1); CHLORIDE 103 mmol/L (98-107); CO2 24 mmol/L (21-32); CREATININE 1.3 mg/dL (0.55-1.3); GLUCOSE,RANDOM 91 mg/dL (74-106); POTASSIUM 3.6 mmol/L (3.5-5.1); SGOT/AST 16 U/L (15-37); SGPT/ALT 18 U/L (13-61); SODIUM 138 mmol/L (136-145); TOT PROT 8.4 g/dl (6.4-8.2)
[2019-01-15 20:43] LABS: ALK PHOS 52 U/L (45-117); BLOOD UREA NITROGEN 48 mg/dL (7-18); N-TERMINAL BNP 8758.2 pg/ml (5-125)
[2019-01-15] MEDS ORDERED: SODIUM CHLORIDE 250 ML IV STA (22:11)
[2019-01-16] MEDS ORDERED: ALBUTEROL SO4 2.5/IPRATROPIUM 0.5 INH SOL 3 ML VIAL.NEB. NEB PRN (02:57)
[2019-01-16] MEDS ORDERED: ACETAMINOPHEN 325 MG TABLET (FP) PO PRN (02:57)
[2019-01-16] MEDS ORDERED: FUROSEMIDE 40 MG TABLET (FP) PO SCH (06:00)
[2019-01-16 07:00] LABS: BASO % 0.5 % (0-2.0); EOS % 0.3 % (0-4.5); HEMATOCRIT 26.6 % (32.4-45.2); HEMOGLOBIN 9.1 GM/dL (10.7-15.3); MCH 31.3 pg (25.7-33.7); MCHC 34.2 g/dl (32.0-36.0); MEAN CELL VOLUME 91.5 fl (80-96); MEAN PLT VOLUME 8.9 fl (7.5-11.1); MONO % 17.9 % (3.8-10.2); NEUT % 49.3 % (42.8-82.8); PLATELET COUNT 133 K/MM3 (134-434); RBC 2.91 M/mm3 (3.60-5.2); RDW 19.5 % (11.6-15.6); WHITE BLOOD COUNT 3.3 K/mm3 (4.0-10.0)
[2019-01-16 07:40] LABS: ALBUMIN 1.8 g/dl (3.4-5.0); ALK PHOS 45 U/L (45-117); ANION GAP 10 MMOL/L (8-16); BILIRUBIN,TOTAL 0.6 mg/dL (0.2-1); BLOOD UREA NITROGEN 43 mg/dL (7-18); CALCIUM 10.6 mg/dL (8.5-10.1); CHLORIDE 105 mmol/L (98-107); CO2 25 mmol/L (21-32); GLUCOSE,RANDOM 91 mg/dL (74-106); POTASSIUM 3.5 mmol/L (3.5-5.1); SGOT/AST 15 U/L (15-37); SGPT/ALT 15 U/L (13-61); SODIUM 140 mmol/L (136-145); TOT PROT 7.9 g/dl (6.4-8.2)
[2019-01-16] MEDS: LEVOTHYROXINE NA 50 MCG TABLET (FP) PO SCH (08:00)
--- NOTE | 2019-01-16 08:27 | PN ---
Progress Note, Physician Chief Complaint: Well known to me from several recent admissions: PMH: Chronic systolic CHF Cardiomyopathy, mild LV systolic dysfunction Recent NSTEMI s/p HOLLY D1 Multiple myeloma on chemotherapy Chronic Anemia- guaiac negative, but known rectal polyp History of Present Illness: 73-year-old female with a past medical history significant for multiple myeloma , NSTEMI s/p stent placement at [facility] (December 2018), CHF, EF of 45-50% and baseline BP of 90-100 systolic presents to the emergency department with dizziness and weakness. The patient reports since (01/13) shes been having objective vertigo, associated with weakness. The patient reports secondary to the weakness, the patients been nonambulatory, states which in turn limits her food and fluid intake. The patient reports associated symptoms of leg and ankle swelling and chills. Denies dark or bloody stool, fever, chest pain. - Current Medication List Current Medications: Active Medications Acetaminophen (Tylenol -) 650 mg PO Q6H PRN PRN Reason: PAIN LEVEL 1-5 Albuterol/Ipratropium (Duoneb -) 1 amp NEB Q6H PRN PRN Reason: SHORTNESS OF BREATH Allopurinol (Zyloprim -) 300 mg PO DAILY [facility] Aspirin (Asa -) 81 mg PO DAILY [facility] Atorvastatin Calcium (Lipitor -) 40 mg PO HS [facility] Atovaquone (Mepron -) 1,500 mg PO DAILY@1800 [facility] Clopidogrel Bisulfate (Plavix -) 75 mg PO DAILY [facility] Diltiazem HCl (Cardizem Cd -) 240 mg PO DAILY [facility] Furosemide (Lasix -) 40 mg PO BID@0600,1400 [facility] Gabapentin (Neurontin -) 300 mg PO DAILY [facility] Heparin Sodium (Porcine) (Heparin -) 5,000 unit SQ BID [facility] Levothyroxine Sodium (Synthroid -) 50 mcg PO DAILY@0700 [facility] Losartan Potassium (Cozaar -) 25 mg PO DAILY [facility] Metoprolol Succinate (Toprol Xl -) 12.5 mg PO DAILY [facility] Pantoprazole Sodium (Protonix -) 40 mg PO DAILY [facility] - Objective Vital Signs: Vital Signs Temperature 97.9 F 01/16/19 06:30 Pulse Rate 86 01/16/19 06:30 Respiratory Rate 17 01/16/19 06:30 Blood Pressure 101/58 L 01/16/19 06:30 O2 Sat by Pulse Oximetry (%) 100 01/16/19 06:30 Constitutional: Yes: No Distress, Calm Eyes: Yes: Conjunctiva Clear Cardiovascular: Yes: Regular Rate and Rhythm Respiratory: Yes: CTA Bilaterally (no wheezing or rales) Gastrointestinal: Yes: Soft (NT) Edema: No Neurological: Yes: Alert, Oriented Labs: CBC, BMP 01/16/19 06:30 01/16/19 06:30 INR, PTT INR 1.08 (0.83-1.09) 01/15/19 18:14 Laboratory Tests 01/15/19 01/15/19 01/16/19 18:14 19:06 02:17 WBC Hgb Plt Count INR 1.08 Sodium Potassium BUN Creatinine Creatine Kinase 56 55 Troponin I 0.07 H 0.08 H B-Natriuretic Peptide 8758.2 H Albumin 1.9 L 01/16/19 01/16/19 06:30 06:30 WBC 3.3 L Hgb 9.1 L Plt Count 133 L INR Sodium 140 Potassium 3.5 BUN 43 H Creatinine 1.0 Creatine Kinase 48 Troponin I 0.07 H B-Natriuretic Peptide Albumin 1.8 L - ....Imaging EKG: Image Reviewed (NSR with diffuse NSST changes.) Problem List - Problems (1) Multiple myeloma Code(s): C90.00 - MULTIPLE MYELOMA NOT HAVING ACHIEVED REMISSION Qualifiers: Multiple myeloma remission status: not in remission Qualified Code(s): C90.00 - Multiple myeloma not having achieved remission (2) Dizziness Code(s): R42 - DIZZINESS AND GIDDINESS (3) ASHD (arteriosclerotic heart disease) Code(s): I25.10 - ATHSCL HEART DISEASE OF [place] CORONARY ARTERY W/O ANG PCTRS (4) Abnormal ECG Code(s): R94.31 - ABNORMAL ELECTROCARDIOGRAM [ECG] [EKG] (5) Anemia Code(s): D64.9 - ANEMIA, UNSPECIFIED Qualifiers: Chronic kidney disease stage: unspecified stage (6) CHF (congestive heart failure) Code(s): I50.9 - HEART FAILURE, UNSPECIFIED Qualifiers: Heart failure type: systolic Heart failure chronicity: unspecified Qualified Code(s): I50.20 - Unspecified systolic (congestive) heart failure (7) Elevated troponin Code(s): R74.8 - ABNORMAL LEVELS OF OTHER SERUM ENZYMES (8) PAF (paroxysmal atrial fibrillation) Code(s): I48.0 - PAROXYSMAL ATRIAL FIBRILLATION Assessment/Plan IMP: Dizziness Cardiomyopathy, mild LV systolic dysfunction CAD with recent NSTEMI s/p HOLLY D1 Multiple myeloma on chemotherapy Chronic Anemia- guaiac negative, but known rectal polyp REC: 1. Decrease Lasix to daily dosing. Clinically does not appear volume overloaded at this time, CXR is clear and BUN is elevated. The elevated BNP does not fit clinical scenario. Will repeat echo to assess for valvular heart disease, PHTN. 2. Discontinue Diltiazem and should be avoided with LV dysfx and she is being treated with Toprol for CAD and chronic CHF. 3. Check orthostatics. 4. Telemetry to r/o recurrent PAF- had one isolated, brief episode at the time of NSTEMI which resolved. 5. Continue ASA/Plavix/Statin/ Beta savana and ARB 6. Follow H/H 7. F/u official chest CTA result. Will follow.
[2019-01-16] MEDS ORDERED: HEPARIN NA (PORCINE) 5,000 UNITS/ML 1ML VIAL ONE (10:46)
[2019-01-16] MEDS: LOSARTAN POTASSIUM 25 MG TABLET PO SCH (10:52)
[2019-01-16] MEDS: ASPIRIN 81 MG CHEWABLE TABLETS PO SCH (10:52)
[2019-01-16] MEDS: PANTOPRAZOLE 40 MG TABLET (FP) PO SCH (10:53)
[2019-01-16] MEDS: FUROSEMIDE 40 MG TABLET (FP) PO SCH (10:53)
[2019-01-16] MEDS: ALLOPURINOL 300 MG TABLET (FP) PO SCH (10:53)
[2019-01-16] MEDS: metoPROLOL SUCCINATE 25 MG TAB.SR.24H (FP) PO SCH (10:53)
[2019-01-16] MEDS: GABAPENTIN 300 MG CAPSULE (FP) PO SCH (10:53)
[2019-01-16] MEDS: CLOPIDOGREL BISULFATE 75 MG TABLET (FP) PO SCH (10:53)
[2019-01-16] MEDS: HEPARIN NA (PORCINE) 5,000 UNITS/ML 1ML VIAL SQ SCH ×2 (10:53→21:09)
--- NOTE | 2019-01-16 11:10 | EKG ---
Test Reason : Blood Pressure : / mmHG Vent. Rate : 096 BPM Atrial Rate : 096 BPM P-R Int : 158 ms QRS Dur : 104 ms QT Int : 338 ms P-R-T Axes : 058 -18 180 degrees QTc Int : 427 ms SINUS RHYTHM WITH PREMATURE ATRIAL COMPLEXES AND PREMATURE VENTRICULAR COMPLEXES OR FUSION COMPLEXES POSSIBLE LEFT ATRIAL ENLARGEMENT LEFT VENTRICULAR HYPERTROPHY WITH REPOLARIZATION ABNORMALITY CANNOT RULE OUT SEPTAL INFARCT (CITED ON OR BEFORE 30-DEC-2018) ABNORMAL ECG WHEN COMPARED WITH ECG OF 30-DEC-2018 05:34, SIGNIFICANT CHANGES HAVE OCCURRED Confirmed by MD ANNA, GLENNA ([id number]) on 01/16/2019 11:09:39 AM Referred By: Confirmed By:GLENNA CASTILLO MD
[2019-01-16] MEDS ORDERED: PT OWN MED DRAWER 7, Y5N ONE ×2 (17:06→17:09)
[2019-01-16] MEDS: ATOVAQUONE 750 MG/5 ML (UNIT-DOSE PACKAGING) PO SCH (17:34)
--- NOTE | 2019-01-16 18:25 | CONSULT ---
Consult Consult Specialty:: heme Referred by:: Dr. Puckett Reason for Consultation:: myeloma - History of Present Illness Chief Complaint: dizziness History of Present Illness: 73F with NSTEMI in 12/2018 s/p HOLLY D1 CHF (EF 45-50%), IgA lambda, myeloma/ amyloidosis c/b nephrotic range proteinuria, on VCD since 10/2018 presented with dizziness and generalized weakness. CTA chest ruled out PE. Being monitored on telemetry. Lasix decreased. Diltiazem stopped. Has mild stable pancytopenia. Denies fever, cough, dysuria, diarrhea.. Concerned about ongoing weight loss. - Past Medical History Cardio/Vascular: Yes: CAD (s/p HOLLY D1 this month after NSTEMI), CHF (Chronic systolic CHF, mildly reduced LV function with EF 45%), HTN, Hyperlipdemia Pulmonary: Yes: Asthma Gastrointestinal: Yes: Other (hiatal hernia; rectal polyp) Renal/: Yes: Renal Inusuff, Other (proteinuria) ...: No Psych: Yes: Depression Endocrine: Yes: Hypothyroidism - Past Surgical History Past Surgical History: Yes: Breast Biopsy (right for cysts), Hernia Repair ( laparoscopic hiatal), Hysterectomy, Tubal Ligation - Alcohol/Substance Use Hx Alcohol Use: Yes (occasionally) History of Substance Use: reports: None - Smoking History Smoking history: Never smoked Have you smoked in the past 12 months: No Aproximately how many cigarettes per day: 5 If you are a former smoker, when did you quit?: 1987 - Social History ADL: Independent History of Recent Travel: No Home Medications - Allergies Allergies/Adverse Reactions: Allergies Allergy/AdvReac Type Severity Reaction Status Date / Time Penicillins Allergy Severe Rash Verified 01/15/19 17:46 - Home Medications Home Medications: Ambulatory Orders Gabapentin 300 mg PO DAILY 06/14/13 Diltiazem Cd [Cardizem Cd -] 240 mg PO DAILY 10/11/18 [place]-3/Dha/Epa/Fish Oil [[place] 3 500 Softgel] 1 each PO DAILY 10/11/18 Allopurinol [Zyloprim -] 300 mg PO DAILY #30 tablet 11/09/18 Levothyroxine [Synthroid -] 50 mcg PO DAILY@0700 #30 tablet 11/09/18 Pantoprazole Sodium [Protonix -] 40 mg PO DAILY #30 tablet.ec 11/09/18 Atovaquone 1,500 mg PO DAILY #300 ml 11/10/18 Aspirin [ASA -] 81 mg PO DAILY 12/30/18 Acetaminophen [Tylenol .Regular Strength -] 650 mg PO Q6H PRN #100 tablet Albuterol 2.5/Ipratropium 0.5 [Duoneb -] 1 amp NEB Q6H PRN #30 amp 01/07/19 Atorvastatin Ca [Lipitor] 40 mg PO HS #30 tablet 01/07/19 Clopidogrel Bisulfate [Plavix -] 75 mg PO DAILY #30 tablet 01/07/19 Furosemide [Lasix -] 40 mg PO BID@0600,1400 #60 tablet 01/07/19 Losartan Potassium [Cozaar -] 25 mg PO DAILY #30 tablet 01/07/19 Metoprolol Succinate [Toprol XL -] 12.5 mg PO DAILY #30 tab.sr.24h 01/07/19 Potassium Chloride [K-Dur -] 20 meq PO DAILY #30 tablet.er 01/07/19 Valacyclovir HCl [Valtrex -] 500 mg PO DAILY #30 tablet 01/07/19 Family Disease History - Family Disease History Family Disease History: [place]: Daughter (1 passed at 14yo of Hodgkin's lymphoma; 1 passed at 48 of lupus), Other: Daughter Review of Systems - Review of Systems Constitutional: reports: Loss of Appetite, Unintentional Wgt. Loss, Weakness Eyes: reports: No Symptoms Neck: reports: No Symptoms Cardiovascular: reports: Shortness of Breath Respiratory: reports: SOB Gastrointestinal: reports: No Symptoms Genitourinary: reports: No Symptoms Physical Exam Vital Signs: Vital Signs Temperature 98.8 F 01/16/19 18:00 Pulse Rate 94 H 01/16/19 18:00 Respiratory Rate 22 H 01/16/19 18:00 Blood Pressure 113/64 01/16/19 18:00 O2 Sat by Pulse Oximetry (%) 100 01/16/19 18:06 Constitutional: Yes: No Distress, Calm Eyes: Yes: Conjunctiva Clear Cardiovascular: Yes: Regular Rate and Rhythm Respiratory: Yes: Regular, CTA Bilaterally Gastrointestinal: Yes: WNL, Normal Bowel Sounds, Soft Extremities: Yes: WNL Edema: No Labs: CBC, BMP 01/16/19 06:30 01/16/19 06:30 Imaging - Results Cat Scan: Report Reviewed Assessment/Plan 73F with NSTEMI in 12/2018 s/p HOLLY D1 CHF (EF 45-50%), IgA lambda, myeloma/ amyloidosis c/b nephrotic range proteinuria, on VCD since 10/2018 presented with dizziness and generalized weakness. Has hypotension but it seems to be at baseline. No obvious signs of infection. CTA chest ruled out PE. Being monitored on telemetry. Mild stable pancytopenia. Was planned for autologous stem cell transplant at [facility] in January.Will follow.
--- NOTE | 2019-01-16 20:01 | HP ---
Admitting History and Physical - Past Medical History Cardiovascular: Yes: CAD (s/p HOLLY D1 this month after NSTEMI), CHF (Chronic systolic CHF, mildly reduced LV function with EF 45%), HTN, Hyperlipdemia Pulmonary: Yes: Asthma Gastrointestinal: Yes: Other (hiatal hernia; rectal polyp) Renal/: Yes: Renal Inusuff, Other (proteinuria) ...: No Heme/Onc: Yes: Other (Multiple Myeloma on chemo) Psych: Yes: Depression Endocrine: Yes: Hypothyroidism - Past Surgical History Past Surgical History: Yes: Breast Biopsy (right for cysts), Hernia Repair ( laparoscopic hiatal), Hysterectomy, Tubal Ligation - Smoking History Smoking history: Never smoked Have you smoked in the past 12 months: No Aproximately how many cigarettes per day: 5 If you are a former smoker, when did you quit?: 1987 - Alcohol/Substance Use Hx Alcohol Use: Yes (occasionally) History of Substance Use: reports: None - Social History ADL: Independent History of Recent Travel: No Home Medications - Allergies Allergies/Adverse Reactions: Allergies Allergy/AdvReac Type Severity Reaction Status Date / Time Penicillins Allergy Severe Rash Verified 01/15/19 17:46 - Home Medications Home Medications: Ambulatory Orders Gabapentin 300 mg PO DAILY 06/14/13 Diltiazem Cd [Cardizem Cd -] 240 mg PO DAILY 10/11/18 [place]-3/Dha/Epa/Fish Oil [[place] 3 500 Softgel] 1 each PO DAILY 10/11/18 Allopurinol [Zyloprim -] 300 mg PO DAILY #30 tablet 11/09/18 Levothyroxine [Synthroid -] 50 mcg PO DAILY@0700 #30 tablet 11/09/18 Pantoprazole Sodium [Protonix -] 40 mg PO DAILY #30 tablet.ec 11/09/18 Atovaquone 1,500 mg PO DAILY #300 ml 11/10/18 Aspirin [ASA -] 81 mg PO DAILY 12/30/18 Acetaminophen [Tylenol .Regular Strength -] 650 mg PO Q6H PRN #100 tablet Albuterol 2.5/Ipratropium 0.5 [Duoneb -] 1 amp NEB Q6H PRN #30 amp 01/07/19 Atorvastatin Ca [Lipitor] 40 mg PO HS #30 tablet 01/07/19 Clopidogrel Bisulfate [Plavix -] 75 mg PO DAILY #30 tablet 01/07/19 Furosemide [Lasix -] 40 mg PO BID@0600,1400 #60 tablet 01/07/19 Losartan Potassium [Cozaar -] 25 mg PO DAILY #30 tablet 01/07/19 Metoprolol Succinate [Toprol XL -] 12.5 mg PO DAILY #30 tab.sr.24h 01/07/19 Potassium Chloride [K-Dur -] 20 meq PO DAILY #30 tablet.er 01/07/19 Valacyclovir HCl [Valtrex -] 500 mg PO DAILY #30 tablet 01/07/19 Family Disease History - Family Disease History Family Disease History: [place]: Daughter (1 passed at 14yo of Hodgkin's lymphoma; 1 passed at 48 of lupus), Other: Daughter Physical Examination Vital Signs: Vital Signs Temperature 98.8 F 01/16/19 18:00 Pulse Rate 94 H 01/16/19 18:00 Respiratory Rate 22 H 01/16/19 18:00 Blood Pressure 113/64 01/16/19 18:00 O2 Sat by Pulse Oximetry (%) 100 01/16/19 18:06 Labs: CBC, BMP 01/16/19 06:30 01/16/19 06:30 Problem List - Problems (1) Dizziness Code(s): R42 - DIZZINESS AND GIDDINESS (2) Anemia Code(s): D64.9 - ANEMIA, UNSPECIFIED (3) CAD (coronary artery disease) Code(s): I25.10 - ATHSCL HEART DISEASE OF [place] CORONARY ARTERY W/O ANG PCTRS Qualifiers: Coronary Disease-Associated Artery/Lesion type: [place] artery Associated angina: without angina (4) CHF (congestive heart failure) Code(s): I50.9 - HEART FAILURE, UNSPECIFIED Qualifiers: Heart failure type: systolic Heart failure chronicity: unspecified Qualified Code(s): I50.20 - Unspecified systolic (congestive) heart failure (5) CKD (chronic kidney disease) Code(s): N18.9 - CHRONIC KIDNEY DISEASE, UNSPECIFIED (6) Diarrhea Code(s): R19.7 - DIARRHEA, UNSPECIFIED Qualifiers: Diarrhea type: unspecified type Qualified Code(s): R19.7 - Diarrhea, unspecified (7) Elevated troponin Code(s): R74.8 - ABNORMAL LEVELS OF OTHER SERUM ENZYMES (8) HLD (hyperlipidemia) Code(s): E78.5 - HYPERLIPIDEMIA, UNSPECIFIED Qualifiers: Hyperlipidemia type: unspecified Qualified Code(s): E78.5 - Hyperlipidemia , unspecified (9) HTN (hypertension) Code(s): I10 - ESSENTIAL (PRIMARY) HYPERTENSION Qualifiers: Hypertension type: essential hypertension Qualified Code(s): I10 - Essential (primary) hypertension (10) Hypothyroidism Code(s): E03.9 - HYPOTHYROIDISM, UNSPECIFIED Qualifiers: Hypothyroidism type: acquired Qualified Code(s): E03.9 - Hypothyroidism, unspecified (11) Multiple myeloma Code(s): C90.00 - MULTIPLE MYELOMA NOT HAVING ACHIEVED REMISSION Qualifiers: Multiple myeloma remission status: not in remission Qualified Code(s): C90.00 - Multiple myeloma not having achieved remission
[2019-01-16] MEDS: ATORVASTATIN CA 40 MG TABLET (FP) PO SCH (21:14)
[2019-01-17] MEDS: LEVOTHYROXINE NA 50 MCG TABLET (FP) PO SCH (06:27)
--- NOTE | 2019-01-17 08:34 | PN ---
Progress Note, Physician Chief Complaint: CTA negative for PE TELE: NSR w/ NSST changes Still c/o dizziness. - Current Medication List Current Medications: Active Medications Acetaminophen (Tylenol -) 650 mg PO Q6H PRN PRN Reason: PAIN LEVEL 1-5 Albuterol/Ipratropium (Duoneb -) 1 amp NEB Q6H PRN PRN Reason: SHORTNESS OF BREATH Allopurinol (Zyloprim -) 300 mg PO DAILY [facility] Last Admin: 01/16/19 10:53 Dose: 300 mg Aspirin (Asa -) 81 mg PO DAILY [facility] Last Admin: 01/16/19 10:52 Dose: 81 mg Atorvastatin Calcium (Lipitor -) 40 mg PO HS [facility] Last Admin: 01/16/19 21:14 Dose: 40 mg Atovaquone (Mepron -) 1,500 mg PO DAILY@1800 [facility] Last Admin: 01/16/19 17:34 Dose: 1,500 mg Clopidogrel Bisulfate (Plavix -) 75 mg PO DAILY [facility] Last Admin: 01/16/19 10:53 Dose: 75 mg Furosemide (Lasix -) 40 mg PO DAILY [facility] Last Admin: 01/16/19 10:53 Dose: 40 mg Gabapentin (Neurontin -) 300 mg PO DAILY [facility] Last Admin: 01/16/19 10:53 Dose: 300 mg Heparin Sodium (Porcine) (Heparin -) 5,000 unit SQ BID [facility] Last Admin: 01/16/19 21:09 Dose: 5,000 unit Levothyroxine Sodium (Synthroid -) 50 mcg PO DAILY@0700 [facility] Last Admin: 01/17/19 06:27 Dose: 50 mcg Losartan Potassium (Cozaar -) 25 mg PO DAILY [facility] Last Admin: 01/16/19 10:52 Dose: Not Given Metoprolol Succinate (Toprol Xl -) 12.5 mg PO DAILY [facility] Last Admin: 01/16/19 10:53 Dose: Not Given Pantoprazole Sodium (Protonix -) 40 mg PO DAILY [facility] Last Admin: 01/16/19 10:53 Dose: 40 mg - Objective Vital Signs: Vital Signs Temperature 98.2 F 01/17/19 04:00 Pulse Rate 86 01/17/19 08:00 Respiratory Rate 21 H 01/17/19 08:00 Blood Pressure 107/67 01/17/19 08:00 O2 Sat by Pulse Oximetry (%) 97 01/17/19 08:08 Constitutional: Yes: Calm Cardiovascular: Yes: Regular Rate and Rhythm Respiratory: Yes: CTA Bilaterally Gastrointestinal: Yes: Soft Edema: No Neurological: Yes: Alert, Oriented ...Motor Strength: WNL Labs: CBC, BMP 01/16/19 06:30 01/16/19 06:30 INR, PTT INR 1.08 (0.83-1.09) 01/15/19 18:14 Laboratory Tests 01/15/19 01/16/19 01/16/19 19:06 02:17 06:30 Sodium 140 Potassium 3.5 BUN 43 H Creatinine 1.0 Alkaline Phosphatase 52 Creatine Kinase 55 48 Troponin I 0.07 H 0.08 H 0.07 H 01/16/19 15:58 Sodium Potassium BUN Creatinine Alkaline Phosphatase Creatine Kinase 61 Troponin I 0.06 H - ....Imaging Cat Scan: Report Reviewed EKG: Image Reviewed Problem List - Problems (1) Multiple myeloma Code(s): C90.00 - MULTIPLE MYELOMA NOT HAVING ACHIEVED REMISSION Qualifiers: Multiple myeloma remission status: not in remission Qualified Code(s): C90.00 - Multiple myeloma not having achieved remission (2) Dizziness Code(s): R42 - DIZZINESS AND GIDDINESS (3) ASHD (arteriosclerotic heart disease) Code(s): I25.10 - ATHSCL HEART DISEASE OF [place] CORONARY ARTERY W/O ANG PCTRS (4) Abnormal ECG Code(s): R94.31 - ABNORMAL ELECTROCARDIOGRAM [ECG] [EKG] (5) Anemia Code(s): D64.9 - ANEMIA, UNSPECIFIED Qualifiers: Chronic kidney disease stage: unspecified stage (6) CHF (congestive heart failure) Code(s): I50.9 - HEART FAILURE, UNSPECIFIED Qualifiers: Heart failure type: systolic Heart failure chronicity: unspecified Qualified Code(s): I50.20 - Unspecified systolic (congestive) heart failure (7) Elevated troponin Code(s): R74.8 - ABNORMAL LEVELS OF OTHER SERUM ENZYMES (8) PAF (paroxysmal atrial fibrillation) Code(s): I48.0 - PAROXYSMAL ATRIAL FIBRILLATION Assessment/Plan IMP: Dizziness Cardiomyopathy, mild LV systolic dysfunction CAD with recent NSTEMI s/p HOLLY D1 Multiple myeloma on chemotherapy Chronic Anemia- guaiac negative, but known rectal polyp REC: 1. Decreased Lasix to daily dosing. Clinically does not appear volume overloaded at this time, CXR is clear and BUN is elevated. The elevated BNP does not fit clinical scenario. Will repeat echo to assess for valvular heart disease, PHTN. 2. Discontinue Diltiazem and should be avoided with LV dysfx and she is being treated with Toprol for CAD and chronic CHF. 3. Check orthostatics. 4. Telemetry to r/o recurrent PAF- had one isolated, brief episode at the time of NSTEMI which resolved. 5. Continue ASA/Plavix/Statin/ Beta savana and ARB 6. Follow H/H 7. CTA negative for PE. 8. CT Head
[2019-01-17] MEDS ORDERED: PT OWN MED DRAWER 7, Y5N ONE (09:48)
[2019-01-17] MEDS: GABAPENTIN 300 MG CAPSULE (FP) PO SCH (09:49)
[2019-01-17] MEDS: PANTOPRAZOLE 40 MG TABLET (FP) PO SCH (09:50)
[2019-01-17] MEDS: ALLOPURINOL 300 MG TABLET (FP) PO SCH (09:50)
[2019-01-17] MEDS: CLOPIDOGREL BISULFATE 75 MG TABLET (FP) PO SCH (09:50)
[2019-01-17] MEDS: FUROSEMIDE 40 MG TABLET (FP) PO SCH (09:51)
[2019-01-17] MEDS: ASPIRIN 81 MG CHEWABLE TABLETS PO SCH (09:51)
[2019-01-17] MEDS: LOSARTAN POTASSIUM 25 MG TABLET PO SCH (09:51)
[2019-01-17] MEDS: HEPARIN NA (PORCINE) 5,000 UNITS/ML 1ML VIAL SQ SCH ×2 (09:52→22:17)
[2019-01-17] MEDS: metoPROLOL SUCCINATE 25 MG TAB.SR.24H (FP) PO SCH (09:52)
[2019-01-17] MEDS: ATOVAQUONE 750 MG/5 ML (UNIT-DOSE PACKAGING) PO SCH (17:39)
--- NOTE | 2019-01-17 17:42 | ECHO ---
Name: SHERRY SIMPSON Exam:Adult Echocardiogram Study Date: 01/17/2019 10:47 AM Age: 73 yrs Reason For Study: ELEVATED BNP LVEF AND VALVE ASSESSMENT Height: 66 in Weight: 140 lb BSA: 1.7 m2 BP: 117/86 mmHg MMode/2D Measurements & Calculations IVSd: 1.1 cm Ao root diam: 2.6 cm LVIDd: 5.1 cm LA dimension: 3.7 cm LVIDs: 3.6 cm LVPWd: 0.83 cm EDV(Teich): 123.6 ml LVOT diam: 2.3 cm ESV(Teich): 54.7 ml LAV (MOD-bp): 64.0 ml TAPSE: 2.4 cm Doppler Measurements & Calculations MV E max carlos: 53.8 cm/sec Ao V2 max: 122.6 cm/sec MV A max carlos: 73.5 cm/sec Ao max P.0 mmHg MV E/A: 0.73 Ao V2 mean: 94.4 cm/sec MV dec time: 0.20 sec Ao mean P.8 mmHg Ao V2 VTI: 23.3 cm BRYAN(I,D): 1.7 cm2 AI P1/2t: 378.2 msec BRYAN(V,D): 1.8 cm2 AI max carlos: 324.9 cm/sec LV V1 max P.1 mmHg AI max P.4 mmHg LV V1 mean P.54 mmHg AI dec slope: 251.6 cm/sec2 LV V1 max: 53.1 cm/sec LV V1 mean: 33.5 cm/sec LV V1 VTI: 9.4 cm MR max carlos: 270.6 cm/sec SV(LVOT): 40.0 ml MR max P.5 mmHg TR max carlos: 238.5 cm/sec Med Peak E' Carlos: 2.5 cm/sec TR max P.8 mmHg Med E/e': 21.2 Lat Peak E' Carlos: 6.7 cm/sec Lat E/e': 8.0 Procedure A complete two-dimensional transthoracic echocardiogram was performed (2D, M-mode, Doppler and color flow Doppler). Left Ventricle The left ventricle is normal in size. Left ventricular systolic function is mildly reduced. Ejection Fraction = 45-50%. Diastolic dysfunction, Grade II, consistent with elevated left atrial pressure. Ratio E/E'= 20. There is apical septal wall mild hypokinesis. There is basal anteroseptal wall mild hypokinesis. Ther e is mid anteroseptal wall mild hypokinesis. There is septal wall mild hypokinesis. There are regional wall mo tion abnormalities as specified. Right Ventricle The right ventricle is normal size. The right ventricular systolic function is normal. RV systolic TD I is 10 cm/s. Atria The left atrium is mildly dilated. LA volume index is 37 ml/m2. Right atrial size is normal. Mitral Valve There is mild mitral annular calcification. There is mild mitral regurgitation. Tricuspid Valve The tricuspid valve is normal in structure and function. There is mild tricuspid regurgitation. Pulmo nary artery systolic pressure is at least 28 mmHg assuming RA pressure of 3 mmHg. Aortic Valve There is mild aortic sclerosis.;. Mild aortic regurgitation. Pulmonic Valve The pulmonic valve is not well visualized. Trace to mild pulmonic valvular regurgitation. Great Vessels The aortic root is normal size. Pericardium/Pleura There is no pericardial effusion. Interpretation Summary The left ventricle is normal in size. Left ventricular systolic function is mildly reduced. There are regional wall motion abnormalities as specified. Ejection Fraction = 45-50%. Diastolic dysfunction, Grade II, consistent with elevated left atrial pressure. Ratio E/E'= 20 The right ventricular systolic function is normal. The left atrium is mildly dilated. Right atrial size is normal. There is mild mitral annular calcification. There is mild mitral regurgitation. There is mild tricuspid regurgitation. Pulmonary artery systolic pressure is at least 28 mmHg assuming RA pressure of 3 mmHg There is mild aortic sclerosis. Mild aortic regurgitation. Trace to mild pulmonic valvular regurgitation. There is no pericardial effusion. Previous study is not available for comparison Praveen Woodruff MD 01/17/2019 05:41 PM
[2019-01-17 18:35] LABS: HEMATOCRIT 28.6 % (32.4-45.2); HEMOGLOBIN 9.7 GM/dL (10.7-15.3); RBC 3.04 M/mm3 (3.60-5.2); WHITE BLOOD COUNT 4.5 K/mm3 (4.0-10.0)
[2019-01-17 18:36] LABS: BASO % 0.3 % (0-2.0); EOS % 0.7 % (0-4.5); LYMPH % 29.8 % (8-40); MCHC 34.1 g/dl (32.0-36.0); MONO % 13.7 % (3.8-10.2); NEUT % 55.5 % (42.8-82.8); PLATELET COUNT 122 K/MM3 (134-434); RDW 19.6 % (11.6-15.6)
[2019-01-17 19:14] LABS: ALBUMIN 1.9 g/dl (3.4-5.0); ALK PHOS 68 U/L (45-117); ANION GAP 11 MMOL/L (8-16); BILIRUBIN,TOTAL 0.3 mg/dL (0.2-1); BLOOD UREA NITROGEN 37 mg/dL (7-18); CALCIUM 9.9 mg/dL (8.5-10.1); CHLORIDE 102 mmol/L (98-107); CO2 25 mmol/L (21-32); CREATININE 1.4 mg/dL (0.55-1.3); GLUCOSE,RANDOM 106 mg/dL (74-106); SGOT/AST 13 U/L (15-37); SGPT/ALT 14 U/L (13-61); SODIUM 138 mmol/L (136-145); TOT PROT 8.2 g/dl (6.4-8.2)
--- NOTE | 2019-01-17 19:51 | PN ---
Progress Note (short form) - Note Progress Note: Patient seen and examined c/o dizziness Last Vital Signs Temp Pulse Resp BP Pulse Ox 98.6 F 105 H 20 112/72 100 01/17/19 18:00 01/17/19 18:00 01/17/19 18:00 01/17/19 18:00 01/17/19 13:44 Cor: RSR, No murmurs, No gallops Lungs: Clear to P&A Abd: Soft, Normal bowel sounds, No organomegaly Ext:No significant edema Abnormal Lab Results 01/17/19 01/17/19 18:00 18:00 RBC 3.04 L Hgb 9.7 L Hct 28.6 L RDW 19.6 H Plt Count 122 L Monocytes % 13.7 H BUN 37 H Creatinine 1.4 H AST 13 L Troponin I 0.06 H Albumin 1.9 L Active Medications Generic Name Dose Route Start Last Admin Trade Name Freq PRN Reason Stop Dose Admin Acetaminophen 650 mg 01/16/19 02:57 Tylenol - PO Q6H PRN PAIN LEVEL 1-5 Albuterol/Ipratropium 1 amp 01/16/19 02:57 Duoneb - NEB Q6H PRN SHORTNESS OF BREATH Allopurinol 300 mg 01/16/19 10:00 01/17/19 09:50 Zyloprim - PO 300 mg DAILY [facility]O Administration Aspirin 81 mg 01/16/19 10:00 01/17/19 09:51 Asa - PO 81 mg DAILY [facility] Administration Atorvastatin Calcium 40 mg 01/16/19 22:00 01/17/19 22:17 Lipitor - PO 40 mg HS [facility]O Administration Atovaquone 1,500 mg 01/16/19 18:00 01/17/19 17:39 Mepron - PO 1,500 mg DAILY@1800 [facility] Administration Clopidogrel Bisulfate 75 mg 01/16/19 10:00 01/17/19 09:50 Plavix - PO 75 mg DAILY [facility] Administration Furosemide 40 mg 01/16/19 10:00 01/17/19 09:51 Lasix - PO 40 mg DAILY [facility] Administration Heparin Sodium (Porcine) 5,000 unit 01/16/19 10:00 01/17/19 22:17 Heparin - SQ 5,000 unit BID [facility] Administration Levothyroxine Sodium 50 mcg 01/16/19 07:00 01/17/19 06:27 Synthroid - PO 50 mcg DAILY@0700 [facility] Administration Losartan Potassium 25 mg 01/16/19 10:00 01/17/19 09:51 Cozaar - PO Not Given DAILY [facility] Meclizine HCl 12.5 mg 01/17/19 20:12 Antivert - PO Q12H PRN VERTIGO Metoprolol Succinate 12.5 mg 01/16/19 10:00 01/17/19 09:52 Toprol Xl - PO Not Given DAILY [facility] Pantoprazole Sodium 40 mg 01/16/19 10:00 01/17/19 09:50 Protonix - PO 40 mg DAILY [facility]O Administration a/p 73 y/o patient with myeloma/amyloid/ nephrotic syndrome/ CHF s/p drug eluting stents myeloma/amyloid -- on velcade/cytoxan/dex.stable disease. ? rev/dex chf s/p ricky on lasi/losaran/metoprolol ckd --worsening cr renal consult ? decrease lasix dizziness--? due to lasix meclizine prn d/c neurontin
[2019-01-17] MEDS ORDERED: MECLIZINE HCL 12.5 MG TABLET PO PRN (20:12)
[2019-01-17] MEDS: ATORVASTATIN CA 40 MG TABLET (FP) PO SCH (22:17)
--- NOTE | 2019-01-17 23:49 | PN ---
Progress Note, Physician - Current Medication List Current Medications: Active Medications Acetaminophen (Tylenol -) 650 mg PO Q6H PRN PRN Reason: PAIN LEVEL 1-5 Albuterol/Ipratropium (Duoneb -) 1 amp NEB Q6H PRN PRN Reason: SHORTNESS OF BREATH Allopurinol (Zyloprim -) 300 mg PO DAILY [facility] Last Admin: 01/17/19 09:50 Dose: 300 mg Aspirin (Asa -) 81 mg PO DAILY [facility] Last Admin: 01/17/19 09:51 Dose: 81 mg Atorvastatin Calcium (Lipitor -) 40 mg PO HS [facility] Last Admin: 01/17/19 22:17 Dose: 40 mg Atovaquone (Mepron -) 1,500 mg PO DAILY@1800 [facility] Last Admin: 01/17/19 17:39 Dose: 1,500 mg Clopidogrel Bisulfate (Plavix -) 75 mg PO DAILY [facility] Last Admin: 01/17/19 09:50 Dose: 75 mg Furosemide (Lasix -) 40 mg PO DAILY [facility] Last Admin: 01/17/19 09:51 Dose: 40 mg Heparin Sodium (Porcine) (Heparin -) 5,000 unit SQ BID [facility] Last Admin: 01/17/19 22:17 Dose: 5,000 unit Levothyroxine Sodium (Synthroid -) 50 mcg PO DAILY@0700 [facility] Last Admin: 01/17/19 06:27 Dose: 50 mcg Losartan Potassium (Cozaar -) 25 mg PO DAILY [facility] Last Admin: 01/17/19 09:51 Dose: Not Given Meclizine HCl (Antivert -) 12.5 mg PO Q12H PRN PRN Reason: VERTIGO Metoprolol Succinate (Toprol Xl -) 12.5 mg PO DAILY [facility] Last Admin: 01/17/19 09:52 Dose: Not Given Pantoprazole Sodium (Protonix -) 40 mg PO DAILY [facility] Last Admin: 01/17/19 09:50 Dose: 40 mg - Objective Vital Signs: Vital Signs Temperature 98.6 F 01/17/19 18:00 Pulse Rate 100 H 01/17/19 22:00 Respiratory Rate 20 01/17/19 22:00 Blood Pressure 114/58 L 01/17/19 22:00 O2 Sat by Pulse Oximetry (%) 100 01/17/19 22:00 Labs: CBC, BMP 01/17/19 18:00 01/17/19 18:00 INR, PTT INR 1.08 (0.83-1.09) 01/15/19 18:14
[2019-01-18] MEDS: LEVOTHYROXINE NA 50 MCG TABLET (FP) PO SCH (06:12)
--- NOTE | 2019-01-18 08:56 | PN ---
Progress Note, Physician Chief Complaint: seen and examined in ICU Feeling better TELE: NSR w/ NSST changes Head CT negative for mass, CVA, bleed. Echo with essentially stable EF (mildly reduced 45-50%) and no sig valve disease. History of Present Illness: She denies CP, SOB beyond baseline. Denies palpitations. - Current Medication List Current Medications: Active Medications Acetaminophen (Tylenol -) 650 mg PO Q6H PRN PRN Reason: PAIN LEVEL 1-5 Albuterol/Ipratropium (Duoneb -) 1 amp NEB Q6H PRN PRN Reason: SHORTNESS OF BREATH Allopurinol (Zyloprim -) 300 mg PO DAILY [facility] Last Admin: 01/17/19 09:50 Dose: 300 mg Aspirin (Asa -) 81 mg PO DAILY [facility] Last Admin: 01/17/19 09:51 Dose: 81 mg Atorvastatin Calcium (Lipitor -) 40 mg PO HS [facility] Last Admin: 01/17/19 22:17 Dose: 40 mg Atovaquone (Mepron -) 1,500 mg PO DAILY@1800 [facility] Last Admin: 01/17/19 17:39 Dose: 1,500 mg Clopidogrel Bisulfate (Plavix -) 75 mg PO DAILY [facility] Last Admin: 01/17/19 09:50 Dose: 75 mg Furosemide (Lasix -) 40 mg PO DAILY [facility] Last Admin: 01/17/19 09:51 Dose: 40 mg Heparin Sodium (Porcine) (Heparin -) 5,000 unit SQ BID [facility] Last Admin: 01/17/19 22:17 Dose: 5,000 unit Levothyroxine Sodium (Synthroid -) 50 mcg PO DAILY@0700 [facility] Last Admin: 01/18/19 06:12 Dose: 50 mcg Losartan Potassium (Cozaar -) 25 mg PO DAILY [facility] Last Admin: 01/17/19 09:51 Dose: Not Given Meclizine HCl (Antivert -) 12.5 mg PO Q12H PRN PRN Reason: VERTIGO Metoprolol Succinate (Toprol Xl -) 12.5 mg PO DAILY [facility] Last Admin: 01/17/19 09:52 Dose: Not Given Pantoprazole Sodium (Protonix -) 40 mg PO DAILY [facility] Last Admin: 01/17/19 09:50 Dose: 40 mg - Objective Vital Signs: Vital Signs Temperature 98.4 F 01/18/19 06:00 Pulse Rate 98 H 01/18/19 06:00 Respiratory Rate 18 01/18/19 06:00 Blood Pressure 98/54 L 01/18/19 06:00 O2 Sat by Pulse Oximetry (%) 100 01/17/19 22:00 Constitutional: Yes: No Distress Eyes: Yes: Conjunctiva Clear Cardiovascular: Yes: Regular Rate and Rhythm Respiratory: Yes: Other (no wheezing. Mildly decreased breath sounds at bases.) Gastrointestinal: Yes: Soft (nontender) Edema: No Peripheral Pulses WNL: Yes Neurological: Yes: Alert, Oriented Labs: CBC, BMP 01/17/19 18:00 01/17/19 18:00 INR, PTT INR 1.08 (0.83-1.09) 01/15/19 18:14 - ....Imaging Cat Scan: Image Reviewed EKG: Image Reviewed Other: Other Problem List - Problems (1) Multiple myeloma Code(s): C90.00 - MULTIPLE MYELOMA NOT HAVING ACHIEVED REMISSION Qualifiers: Multiple myeloma remission status: not in remission Qualified Code(s): C90.00 - Multiple myeloma not having achieved remission (2) Dizziness Code(s): R42 - DIZZINESS AND GIDDINESS (3) ASHD (arteriosclerotic heart disease) Code(s): I25.10 - ATHSCL HEART DISEASE OF [place] CORONARY ARTERY W/O ANG PCTRS (4) Abnormal ECG Code(s): R94.31 - ABNORMAL ELECTROCARDIOGRAM [ECG] [EKG] (5) Anemia Code(s): D64.9 - ANEMIA, UNSPECIFIED Qualifiers: Chronic kidney disease stage: unspecified stage (6) CHF (congestive heart failure) Code(s): I50.9 - HEART FAILURE, UNSPECIFIED Qualifiers: Heart failure type: systolic Heart failure chronicity: unspecified Qualified Code(s): I50.20 - Unspecified systolic (congestive) heart failure (7) Elevated troponin Code(s): R74.8 - ABNORMAL LEVELS OF OTHER SERUM ENZYMES (8) PAF (paroxysmal atrial fibrillation) Code(s): I48.0 - PAROXYSMAL ATRIAL FIBRILLATION Assessment/Plan IMP: Dizziness Cardiomyopathy, mild LV systolic dysfunction CAD with recent NSTEMI s/p HOLLY D1 Multiple myeloma on chemotherapy Chronic Anemia- guaiac negative, but known rectal polyp REC: 1. Lasix decreased this admission. Echo does show mild LV systolic dysfx and evidence of diastolic dysfx as well, suspect she will need Lasix to maintain euvolemia. 2. Discontinued Diltiazem as should be avoided with LV dysfx and she is being treated with Toprol for CAD and chronic CHF. 3. Telemetry has been unrevealing with no arrhythmia detected. 4. Continue ASA/Plavix/Statin/ Beta savana and ARB 5. Head CT negative for mass, bleed, CVA. 6. Agree w/ d/c Neurontin and trial of Meclizine, as suggested by Oncology.
[2019-01-18] MEDS: LOSARTAN POTASSIUM 25 MG TABLET PO SCH (10:00)
[2019-01-18] MEDS: metoPROLOL SUCCINATE 25 MG TAB.SR.24H (FP) PO SCH (10:00)
[2019-01-18] MEDS ORDERED: PT OWN MED DRAWER 7, Y5N ONE ×2 (10:57→18:50)
[2019-01-18] MEDS: ASPIRIN 81 MG CHEWABLE TABLETS PO SCH (10:59)
[2019-01-18] MEDS: PANTOPRAZOLE 40 MG TABLET (FP) PO SCH (11:00)
[2019-01-18] MEDS: CLOPIDOGREL BISULFATE 75 MG TABLET (FP) PO SCH (11:00)
[2019-01-18] MEDS: FUROSEMIDE 40 MG TABLET (FP) PO SCH (11:01)
[2019-01-18] MEDS: ALLOPURINOL 300 MG TABLET (FP) PO SCH (11:01)
[2019-01-18] MEDS: HEPARIN NA (PORCINE) 5,000 UNITS/ML 1ML VIAL SQ SCH ×2 (11:01→21:25)
--- NOTE | 2019-01-18 14:03 | CONSULT ---
Consult Consult Specialty:: Nephrology Reason for Consultation:: CKD - History of Present Illness Chief Complaint: dizziness History of Present Illness: Pt is a 73 year old female with pmhx of multiple myeloma, ckd, amyloidosis, anemia and CAD who presents to the ER with dizziness. She also complains of weakness. She denies lower ext edema. She denies shortness of breath at rest. She did complain of shortness of breath when she came to er. She did get a ct angio. She was also found to be hypotensive. She denies fevers or chills. She denies hematuria or dysuria. - History Source History Provided By: Patient, Medical Record - Past Medical History Cardio/Vascular: Yes: CAD (s/p HOLLY D1 this month after NSTEMI), CHF (Chronic systolic CHF, mildly reduced LV function with EF 45%), HTN, Hyperlipdemia Pulmonary: Yes: Asthma Gastrointestinal: Yes: Other (hiatal hernia; rectal polyp) Renal/: Yes: Renal Inusuff, Other (proteinuria) ...: No Psych: Yes: Depression Endocrine: Yes: Hypothyroidism - Past Surgical History Past Surgical History: Yes: Breast Biopsy (right for cysts), Hernia Repair ( laparoscopic hiatal), Hysterectomy, Tubal Ligation - Alcohol/Substance Use Hx Alcohol Use: Yes (occasionally) History of Substance Use: reports: None - Smoking History Smoking history: Never smoked Have you smoked in the past 12 months: No Aproximately how many cigarettes per day: 5 If you are a former smoker, when did you quit?: 1987 - Social History ADL: Independent History of Recent Travel: No Home Medications - Allergies Allergies/Adverse Reactions: Allergies Allergy/AdvReac Type Severity Reaction Status Date / Time Penicillins Allergy Severe Rash Verified 01/15/19 17:46 - Home Medications Home Medications: Ambulatory Orders Gabapentin 300 mg PO DAILY 06/14/13 Diltiazem Cd [Cardizem Cd -] 240 mg PO DAILY 10/11/18 [place]-3/Dha/Epa/Fish Oil [[place] 3 500 Softgel] 1 each PO DAILY 10/11/18 Allopurinol [Zyloprim -] 300 mg PO DAILY #30 tablet 11/09/18 Levothyroxine [Synthroid -] 50 mcg PO DAILY@0700 #30 tablet 11/09/18 Pantoprazole Sodium [Protonix -] 40 mg PO DAILY #30 tablet.ec 11/09/18 Atovaquone 1,500 mg PO DAILY #300 ml 11/10/18 Aspirin [ASA -] 81 mg PO DAILY 12/30/18 Acetaminophen [Tylenol .Regular Strength -] 650 mg PO Q6H PRN #100 tablet Albuterol 2.5/Ipratropium 0.5 [Duoneb -] 1 amp NEB Q6H PRN #30 amp 01/07/19 Atorvastatin Ca [Lipitor] 40 mg PO HS #30 tablet 01/07/19 Clopidogrel Bisulfate [Plavix -] 75 mg PO DAILY #30 tablet 01/07/19 Furosemide [Lasix -] 40 mg PO BID@0600,1400 #60 tablet 01/07/19 Losartan Potassium [Cozaar -] 25 mg PO DAILY #30 tablet 01/07/19 Metoprolol Succinate [Toprol XL -] 12.5 mg PO DAILY #30 tab.sr.24h 01/07/19 Potassium Chloride [K-Dur -] 20 meq PO DAILY #30 tablet.er 01/07/19 Valacyclovir HCl [Valtrex -] 500 mg PO DAILY #30 tablet 01/07/19 Family Disease History - Family Disease History Family Disease History: [place]: Daughter (1 passed at 14yo of Hodgkin's lymphoma; 1 passed at 48 of lupus), Other: Daughter Review of Systems - Review of Systems Constitutional: reports: Loss of Appetite, Malaise. denies: Chills Eyes: reports: No Symptoms HENT: reports: No Symptoms Neck: reports: No Symptoms Cardiovascular: denies: Edema Respiratory: reports: SOB on Exertion Gastrointestinal: reports: No Symptoms Genitourinary: reports: No Symptoms Musculoskeletal: reports: No Symptoms Neurological: reports: No Symptoms Endocrine: reports: No Symptoms Hematology/Lymphatic: reports: No Symptoms Psychiatric: reports: No Symptoms Physical Exam Vital Signs: Vital Signs Temperature 98.1 F 01/18/19 12:00 Pulse Rate 98 H 01/18/19 12:00 Respiratory Rate 18 01/18/19 12:00 Blood Pressure 99/64 01/18/19 12:00 O2 Sat by Pulse Oximetry (%) 100 01/18/19 09:00 Constitutional: Yes: Calm Eyes: Yes: Conjunctiva Clear HENT: Yes: Atraumatic Neck: Yes: Supple Cardiovascular: Yes: S1, S2 Respiratory: Yes: CTA Bilaterally, On Nasal O2 Gastrointestinal: Yes: Soft Renal/: Yes: WNL Musculoskeletal: Yes: WNL Edema: No Neurological: Yes: Oriented Psychiatric: Yes: Oriented Labs: CBC, BMP 01/17/19 18:00 01/17/19 18:00 Laboratory Tests 10/18/18 12/17/18 01/01/19 08:30 17:45 18:00 Carbon Dioxide Creatinine Protein/Creatinin Ratio 9.14 1.960 3.550 01/16/19 01/17/19 06:30 18:00 Carbon Dioxide 25 Creatinine 1.0 1.4 H Protein/Creatinin Ratio Imaging - Results Cat Scan: Report Reviewed Problem List - Problems (1) Dizziness Code(s): R42 - DIZZINESS AND GIDDINESS Assessment/Plan Current Medications Generic Name Dose Route Start Last Admin Trade Name Freq PRN Reason Stop Dose Admin Acetaminophen 650 mg 01/16/19 02:57 Tylenol - PO Q6H PRN PAIN LEVEL 1-5 Albuterol/Ipratropium 1 amp 01/16/19 02:57 Duoneb - NEB Q6H PRN SHORTNESS OF BREATH Allopurinol 300 mg 01/16/19 10:00 01/18/19 11:01 Zyloprim - PO 300 mg DAILY [facility]O Administration Aspirin 81 mg 01/16/19 10:00 01/18/19 10:59 Asa - PO 81 mg DAILY P[facility]O Administration Atorvastatin Calcium 40 mg 01/16/19 22:00 01/17/19 22:17 Lipitor - PO 40 mg HS PABLITO Administration Atovaquone 1,500 mg 01/16/19 18:00 01/17/19 17:39 Mepron - PO 1,500 mg DAILY@1800 [facility]O Administration Clopidogrel Bisulfate 75 mg 01/16/19 10:00 01/18/19 11:00 Plavix - PO 75 mg DAILY P[facility]O Administration Furosemide 40 mg 01/16/19 10:00 01/18/19 11:01 Lasix - PO 40 mg DAILY PABL[facility]O Administration Heparin Sodium (Porcine) 5,000 unit 01/16/19 10:00 01/18/19 11:01 Heparin - SQ 5,000 unit BID PABLITO Administration Levothyroxine Sodium 50 mcg 01/16/19 07:00 01/18/19 06:12 Synthroid - PO 50 mcg DAILY@0700 [facility]O Administration Losartan Potassium 25 mg 01/16/19 10:00 01/18/19 10:00 Cozaar - PO Not Given DAILY [facility] Meclizine HCl 12.5 mg 01/17/19 20:12 Antivert - PO Q12H PRN VERTIGO Metoprolol Succinate 12.5 mg 01/16/19 10:00 01/18/19 10:00 Toprol Xl - PO Not Given DAILY [facility] Pantoprazole Sodium 40 mg 01/16/19 10:00 01/18/19 11:00 Protonix - PO 40 mg DAILY [facility]O Administration Impression 1. proteinuria 2. multiple myeloma 3. amyloid 4. dizziness 5. hypotension 6. HLD 7. hypothyroidism 8. anemia 9. 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
--- NOTE | 2019-01-18 18:13 | PN ---
Progress Note (short form) - Note Progress Note: Patient seen and examined Still complains of dizziness Seen by renal - medicine adjustment Last Vital Signs Temp Pulse Resp BP Pulse Ox 98.1 F 98 H 18 99/64 100 01/18/19 12:00 01/18/19 12:00 01/18/19 12:00 01/18/19 12:00 01/18/19 09:00 HEENT: ZOILA, EOM Intact Cor: RSR, No murmurs, No gallops Lungs: Clear to P&A Abd: Soft, Normal bowel sounds, No organomegaly Ext:No significant edema Skin: No rashes, Integument intact CBC, BMP 01/17/19 18:00 01/17/19 18:00 Current Medications Generic Name Dose Route Start Last Admin Trade Name Freq PRN Reason Stop Dose Admin Acetaminophen 650 mg 01/16/19 02:57 Tylenol - PO Q6H PRN PAIN LEVEL 1-5 Albuterol/Ipratropium 1 amp 01/16/19 02:57 Duoneb - NEB Q6H PRN SHORTNESS OF BREATH Allopurinol 300 mg 01/16/19 10:00 01/18/19 11:01 Zyloprim - PO 300 mg DAILY [facility] Administration Aspirin 81 mg 01/16/19 10:00 01/18/19 10:59 Asa - PO 81 mg DAILY [facility] Administration Atorvastatin Calcium 40 mg 01/16/19 22:00 01/17/19 22:17 Lipitor - PO 40 mg HS PABL[facility]O Administration Atovaquone 1,500 mg 01/16/19 18:00 01/17/19 17:39 Mepron - PO 1,500 mg DAILY@1800 [facility] Administration Clopidogrel Bisulfate 75 mg 01/16/19 10:00 01/18/19 11:00 Plavix - PO 75 mg DAILY [facility]O Administration Heparin Sodium (Porcine) 5,000 unit 01/16/19 10:00 01/18/19 11:01 Heparin - SQ 5,000 unit BID PABLITO Administration Levothyroxine Sodium 50 mcg 01/16/19 07:00 01/18/19 06:12 Synthroid - PO 50 mcg DAILY@0700 [facility] Administration Meclizine HCl 12.5 mg 01/17/19 20:12 Antivert - PO Q12H PRN VERTIGO Metoprolol Succinate 12.5 mg 01/16/19 10:00 01/18/19 10:00 Toprol Xl - PO Not Given DAILY [facility] Pantoprazole Sodium 40 mg 01/16/19 10:00 01/18/19 11:00 Protonix - PO 40 mg DAILY [facility] Administration Impression: IgA myeloma/amyloid on cytoxan, velcade, decadron in preparation for transplant. Presented with dizziness and worsening of kidney function. Anemia and thrombocytopenia secondary to chemotherapy. Meds being adjusted and lasix being held To monitor lytes.To monitor chemistries On antivert.
[2019-01-18] MEDS: ATOVAQUONE 750 MG/5 ML (UNIT-DOSE PACKAGING) PO SCH (18:51)
--- NOTE | 2019-01-18 21:00 | PN ---
Progress Note, Physician History of Present Illness: Pt still complains of feeling dizzy? but not true vertigo? - Current Medication List Current Medications: Active Medications Acetaminophen (Tylenol -) 650 mg PO Q6H PRN PRN Reason: PAIN LEVEL 1-5 Albuterol/Ipratropium (Duoneb -) 1 amp NEB Q6H PRN PRN Reason: SHORTNESS OF BREATH Allopurinol (Zyloprim -) 300 mg PO DAILY [facility] Last Admin: 01/18/19 11:01 Dose: 300 mg Aspirin (Asa -) 81 mg PO DAILY [facility] Last Admin: 01/18/19 10:59 Dose: 81 mg Atorvastatin Calcium (Lipitor -) 40 mg PO HS [facility] Last Admin: 01/17/19 22:17 Dose: 40 mg Atovaquone (Mepron -) 1,500 mg PO DAILY@1800 [facility] Last Admin: 01/18/19 18:51 Dose: 1,500 mg Clopidogrel Bisulfate (Plavix -) 75 mg PO DAILY [facility] Last Admin: 01/18/19 11:00 Dose: 75 mg Heparin Sodium (Porcine) (Heparin -) 5,000 unit SQ BID [facility] Last Admin: 01/18/19 11:01 Dose: 5,000 unit Levothyroxine Sodium (Synthroid -) 50 mcg PO DAILY@0700 [facility] Last Admin: 01/18/19 06:12 Dose: 50 mcg Meclizine HCl (Antivert -) 12.5 mg PO Q12H PRN PRN Reason: VERTIGO Metoprolol Succinate (Toprol Xl -) 12.5 mg PO DAILY [facility] Last Admin: 01/18/19 10:00 Dose: Not Given Pantoprazole Sodium (Protonix -) 40 mg PO DAILY [facility] Last Admin: 01/18/19 11:00 Dose: 40 mg - Objective Vital Signs: Vital Signs Temperature 99.4 F 01/18/19 19:01 Pulse Rate 104 H 01/18/19 19:51 Respiratory Rate 24 H 01/18/19 19:51 Blood Pressure 108/57 L 01/18/19 19:51 O2 Sat by Pulse Oximetry (%) 100 01/18/19 19:51 Neck: Yes: WNL, Supple Cardiovascular: Yes: WNL, Regular Rate and Rhythm Respiratory: Yes: WNL, Regular, CTA Bilaterally Gastrointestinal: Yes: WNL, Normal Bowel Sounds, Soft Edema: No Labs: CBC, BMP 03/18/19 18:00 01/17/19 18:00 INR, PTT INR 1.08 (0.83-1.09) 01/15/19 18:14 Problem List - Problems (1) Dizziness Assessment/Plan: Will get neuro consult CT scan head did not show any acute pathology Cont meclizine Neuro consult PT eval Code(s): R42 - DIZZINESS AND GIDDINESS (2) Anemia Assessment/Plan: H/H remains stable Pt has h/o rectal polyp Needs colonoscopy as outpt Code(s): D64.9 - ANEMIA, UNSPECIFIED (3) CAD (coronary artery disease) Assessment/Plan: Cont asa/plavix Code(s): I25.10 - ATHSCL HEART DISEASE OF [place] CORONARY ARTERY W/O ANG PCTRS (4) CHF (congestive heart failure) Assessment/Plan: Acute on chronic systolic/diastolic heart failure Lasix on hold due to elevated creatinine Lasix dosing as per cardio Code(s): I50.9 - HEART FAILURE, UNSPECIFIED Qualifiers: Heart failure type: systolic Heart failure chronicity: unspecified Qualified Code(s): I50.20 - Unspecified systolic (congestive) heart failure (5) CKD (chronic kidney disease) Assessment/Plan: Lasix/losartan on hold as per renal Monitor electrolytes H/O proteinuria/multiple myeloma Code(s): N18.9 - CHRONIC KIDNEY DISEASE, UNSPECIFIED (6) Diarrhea Assessment/Plan: Resolved Code(s): R19.7 - DIARRHEA, UNSPECIFIED Qualifiers: Diarrhea type: unspecified type Qualified Code(s): R19.7 - Diarrhea, unspecified (7) Elevated troponin Assessment/Plan: Due to multiple co-morbidities Code(s): R74.8 - ABNORMAL LEVELS OF OTHER SERUM ENZYMES (8) HTN (hypertension) Assessment/Plan: Losartan to be on hold as per renal Code(s): I10 - ESSENTIAL (PRIMARY) HYPERTENSION Qualifiers: Hypertension type: essential hypertension Qualified Code(s): I10 - Essential (primary) hypertension (9) Multiple myeloma Assessment/Plan: As per onco Code(s): C90.00 - MULTIPLE MYELOMA NOT HAVING ACHIEVED REMISSION Qualifiers: Multiple myeloma remission status: not in remission Qualified Code(s): C90.00 - Multiple myeloma not having achieved remission (10) HLD (hyperlipidemia) Assessment/Plan: Cont lipitor Code(s): E78.5 - HYPERLIPIDEMIA, UNSPECIFIED Qualifiers: Hyperlipidemia type: unspecified Qualified Code(s): E78.5 - Hyperlipidemia , unspecified (11) Hypothyroidism Assessment/Plan: Cont levothyroxine Code(s): E03.9 - HYPOTHYROIDISM, UNSPECIFIED Qualifiers: Hypothyroidism type: acquired Qualified Code(s): E03.9 - Hypothyroidism, unspecified
[2019-01-18] MEDS: ATORVASTATIN CA 40 MG TABLET (FP) PO SCH (21:25)
[2019-01-19] MEDS: LEVOTHYROXINE NA 50 MCG TABLET (FP) PO SCH (06:31)
[2019-01-19 06:33] LABS: BASO % 0.2 % (0-2.0); EOS % 1.5 % (0-4.5); HEMATOCRIT 26.4 % (32.4-45.2); LYMPH % 26.9 % (8-40); MCH 31.2 pg (25.7-33.7); MEAN CELL VOLUME 91.9 fl (80-96); MEAN PLT VOLUME 9.1 fl (7.5-11.1); MONO % 13.4 % (3.8-10.2); PLATELET COUNT 101 K/MM3 (134-434); RBC 2.87 M/mm3 (3.60-5.2); RDW 19.4 % (11.6-15.6); WHITE BLOOD COUNT 4.1 K/mm3 (4.0-10.0)
[2019-01-19 06:37] LABS: ALBUMIN 1.6 g/dl (3.4-5.0); ALK PHOS 57 U/L (45-117); ANION GAP 8 MMOL/L (8-16); BILIRUBIN,TOTAL 0.3 mg/dL (0.2-1); BLOOD UREA NITROGEN 42 mg/dL (7-18); CALCIUM 9.6 mg/dL (8.5-10.1); CHLORIDE 102 mmol/L (98-107); CO2 26 mmol/L (21-32); GLUCOSE,RANDOM 94 mg/dL (74-106); POTASSIUM 3.6 mmol/L (3.5-5.1); SGOT/AST 12 U/L (15-37); SGPT/ALT 12 U/L (13-61); SODIUM 136 mmol/L (136-145); TOT PROT 7.7 g/dl (6.4-8.2)
[2019-01-19] MEDS ORDERED: PT OWN MED DRAWER 7, Y5N ONE ×6 (07:51→11:22)
--- NOTE | 2019-01-19 08:46 | PN ---
Progress Note, Physician Chief Complaint: c/o dizziness When questioned further, she states it is worse when she stands up TELE: Sinus tach - Current Medication List Current Medications: Active Medications Acetaminophen (Tylenol -) 650 mg PO Q6H PRN PRN Reason: PAIN LEVEL 1-5 Albuterol/Ipratropium (Duoneb -) 1 amp NEB Q6H PRN PRN Reason: SHORTNESS OF BREATH Allopurinol (Zyloprim -) 300 mg PO DAILY [facility] Last Admin: 01/18/19 11:01 Dose: 300 mg Aspirin (Asa -) 81 mg PO DAILY [facility] Last Admin: 01/18/19 10:59 Dose: 81 mg Atorvastatin Calcium (Lipitor -) 40 mg PO HS [facility] Last Admin: 01/18/19 21:25 Dose: 40 mg Atovaquone (Mepron -) 1,500 mg PO DAILY@1800 [facility] Last Admin: 01/18/19 18:51 Dose: 1,500 mg Clopidogrel Bisulfate (Plavix -) 75 mg PO DAILY [facility] Last Admin: 01/18/19 11:00 Dose: 75 mg Heparin Sodium (Porcine) (Heparin -) 5,000 unit SQ BID [facility] Last Admin: 01/18/19 21:25 Dose: 5,000 unit Levothyroxine Sodium (Synthroid -) 50 mcg PO DAILY@0700 [facility] Last Admin: 01/19/19 06:31 Dose: 50 mcg Meclizine HCl (Antivert -) 12.5 mg PO Q12H PRN PRN Reason: VERTIGO Metoprolol Succinate (Toprol Xl -) 12.5 mg PO DAILY [facility] Last Admin: 01/18/19 10:00 Dose: Not Given Pantoprazole Sodium (Protonix -) 40 mg PO DAILY [facility] Last Admin: 01/18/19 11:00 Dose: 40 mg - Objective Vital Signs: Vital Signs Temperature 99.1 F 01/19/19 08:11 Pulse Rate 110 H 01/19/19 08:10 Respiratory Rate 18 01/19/19 08:10 Blood Pressure 96/68 01/19/19 08:10 O2 Sat by Pulse Oximetry (%) 100 01/19/19 08:25 Constitutional: Yes: No Distress, Calm Eyes: Yes: Conjunctiva Clear Cardiovascular: Yes: Regular Rate and Rhythm Respiratory: Yes: CTA Bilaterally Gastrointestinal: Yes: Soft Edema: No Neurological: Yes: Alert, Oriented Labs: CBC, BMP 01/19/19 05:30 01/19/19 05:30 INR, PTT INR 1.08 (0.83-1.09) 01/15/19 18:14 - ....Imaging EKG: Image Reviewed Problem List - Problems (1) Multiple myeloma Code(s): C90.00 - MULTIPLE MYELOMA NOT HAVING ACHIEVED REMISSION Qualifiers: Multiple myeloma remission status: not in remission Qualified Code(s): C90.00 - Multiple myeloma not having achieved remission (2) Dizziness Code(s): R42 - DIZZINESS AND GIDDINESS (3) ASHD (arteriosclerotic heart disease) Code(s): I25.10 - ATHSCL HEART DISEASE OF [place] CORONARY ARTERY W/O ANG PCTRS (4) Abnormal ECG Code(s): R94.31 - ABNORMAL ELECTROCARDIOGRAM [ECG] [EKG] (5) Anemia Code(s): D64.9 - ANEMIA, UNSPECIFIED Qualifiers: Chronic kidney disease stage: unspecified stage (6) CHF (congestive heart failure) Code(s): I50.9 - HEART FAILURE, UNSPECIFIED Qualifiers: Heart failure type: systolic Heart failure chronicity: unspecified Qualified Code(s): I50.20 - Unspecified systolic (congestive) heart failure (7) Elevated troponin Code(s): R74.8 - ABNORMAL LEVELS OF OTHER SERUM ENZYMES (8) PAF (paroxysmal atrial fibrillation) Code(s): I48.0 - PAROXYSMAL ATRIAL FIBRILLATION Assessment/Plan IMP: Dizziness Cardiomyopathy, mild LV systolic dysfunction CAD with recent NSTEMI s/p HOLLY D1 Multiple myeloma on chemotherapy Chronic Anemia- guaiac negative, but known rectal polyp REC: 1. Agree to hold Lasix today. She will need standing lasix, probably 20mg daily. 2. Discontinued Diltiazem as should be avoided with LV dysfx and she is being treated with Toprol for CAD and chronic CHF. 3. Telemetry has been unrevealing with no arrhythmia detected. 4. Continue ASA/Plavix/Statin/ Beta savana and ARB 5. Head CT negative for mass, bleed, CVA. 6. Agree w/ d/c Neurontin and trial of Meclizine, as suggested by Oncology.
[2019-01-19] MEDS: HEPARIN NA (PORCINE) 5,000 UNITS/ML 1ML VIAL SQ SCH ×2 (09:33→21:22)
[2019-01-19] MEDS: PANTOPRAZOLE 40 MG TABLET (FP) PO SCH (09:33)
[2019-01-19] MEDS: metoPROLOL SUCCINATE 25 MG TAB.SR.24H (FP) PO SCH (09:33)
[2019-01-19] MEDS: ASPIRIN 81 MG CHEWABLE TABLETS PO SCH (09:33)
[2019-01-19] MEDS: CLOPIDOGREL BISULFATE 75 MG TABLET (FP) PO SCH (09:33)
[2019-01-19] MEDS: ALLOPURINOL 300 MG TABLET (FP) PO SCH (09:34)
--- NOTE | 2019-01-19 11:54 | PN ---
Progress Note, Physician History of Present Illness: Pt seen and examined at bedside. She is awake and alert. She says that she feels a little better than yesterday. She denies shortness of breath. - Current Medication List Current Medications: Active Medications Acetaminophen (Tylenol -) 650 mg PO Q6H PRN PRN Reason: PAIN LEVEL 1-5 Albuterol/Ipratropium (Duoneb -) 1 amp NEB Q6H PRN PRN Reason: SHORTNESS OF BREATH Allopurinol (Zyloprim -) 300 mg PO DAILY [facility] Last Admin: 01/19/19 09:34 Dose: 300 mg Aspirin (Asa -) 81 mg PO DAILY [facility] Last Admin: 01/19/19 09:33 Dose: 81 mg Atorvastatin Calcium (Lipitor -) 40 mg PO HS [facility] Last Admin: 01/18/19 21:25 Dose: 40 mg Atovaquone (Mepron -) 1,500 mg PO DAILY@1800 [facility] Last Admin: 01/18/19 18:51 Dose: 1,500 mg Clopidogrel Bisulfate (Plavix -) 75 mg PO DAILY [facility] Last Admin: 01/19/19 09:33 Dose: 75 mg Heparin Sodium (Porcine) (Heparin -) 5,000 unit SQ BID [facility] Last Admin: 01/19/19 09:33 Dose: 5,000 unit Levothyroxine Sodium (Synthroid -) 50 mcg PO DAILY@0700 [facility] Last Admin: 01/19/19 06:31 Dose: 50 mcg Meclizine HCl (Antivert -) 12.5 mg PO Q12H PRN PRN Reason: VERTIGO Metoprolol Succinate (Toprol Xl -) 12.5 mg PO DAILY [facility] Last Admin: 01/19/19 09:33 Dose: 12.5 mg Pantoprazole Sodium (Protonix -) 40 mg PO DAILY [facility] Last Admin: 01/19/19 09:33 Dose: 40 mg - Objective Vital Signs: Vital Signs Temperature 99.1 F 01/19/19 08:11 Pulse Rate 102 H 01/19/19 10:00 Respiratory Rate 18 01/19/19 10:00 Blood Pressure 104/61 01/19/19 10:00 O2 Sat by Pulse Oximetry (%) 100 01/19/19 08:25 Constitutional: Yes: Calm Eyes: Yes: Conjunctiva Clear HENT: Yes: Atraumatic Neck: Yes: Supple Cardiovascular: Yes: S1, S2 Respiratory: Yes: On Nasal O2 Gastrointestinal: Yes: Soft Genitourinary: Yes: WNL Musculoskeletal: Yes: WNL Edema: No Neurological: Yes: Oriented Psychiatric: Yes: Oriented Labs: CBC, BMP 01/19/19 05:30 01/19/19 05:30 INR, PTT INR 1.08 (0.83-1.09) 01/15/19 18:14 Problem List - Problems (1) Dizziness Code(s): R42 - DIZZINESS AND GIDDINESS Assessment/Plan Current Medications Generic Name Dose Route Start Last Admin Trade Name Freq PRN Reason Stop Dose Admin Acetaminophen 650 mg 01/16/19 02:57 Tylenol - PO Q6H PRN PAIN LEVEL 1-5 Albuterol/Ipratropium 1 amp 01/16/19 02:57 Duoneb - NEB Q6H PRN SHORTNESS OF BREATH Allopurinol 300 mg 01/16/19 10:00 01/19/19 09:34 Zyloprim - PO 300 mg DAILY [facility] Administration Aspirin 81 mg 01/16/19 10:00 01/19/19 09:33 Asa - PO 81 mg DAILY [facility] Administration Atorvastatin Calcium 40 mg 01/16/19 22:00 01/18/19 21:25 Lipitor - PO 40 mg HS [facility] Administration Atovaquone 1,500 mg 01/16/19 18:00 01/18/19 18:51 Mepron - PO 1,500 mg DAILY@1800 [facility] Administration Clopidogrel Bisulfate 75 mg 01/16/19 10:00 01/19/19 09:33 Plavix - PO 75 mg DAILY [facility] Administration Heparin Sodium (Porcine) 5,000 unit 01/16/19 10:00 01/19/19 09:33 Heparin - SQ 5,000 unit BID [facility] Administration Levothyroxine Sodium 50 mcg 01/16/19 07:00 01/19/19 06:31 Synthroid - PO 50 mcg DAILY@0700 [facility] Administration Meclizine HCl 12.5 mg 01/17/19 20:12 Antivert - PO Q12H PRN VERTIGO Metoprolol Succinate 12.5 mg 01/16/19 10:00 01/19/19 09:33 Toprol Xl - PO 12.5 mg DAILY [facility] Administration Pantoprazole Sodium 40 mg 01/16/19 10:00 01/19/19 09:33 Protonix - PO 40 mg DAILY [facility] Administration Impression 1. proteinuria 2. multiple myeloma 3. amyloid 4. dizziness 5. hypotension 6. HLD 7. hypothyroidism 8. anemia 9. CKD Plan - losartan and lasix on hold - restart lasix at 20 mg tomorrow - follow urine studies - discussed with oncology yesterday - renal function is better today
[2019-01-19 13:09] LABS: URINE APPEARANCE CLEAR; URINE BILIRUBIN NEGATIVE (<2.0 mg/dL); URINE COLOR YELLOW; URINE GLUCOSE (UA) NEAGTIVE (NEGATIVE); URINE KETONE NEGATIVE (NEGATIVE); URINE LEUK ESTERASE NEGATIVE (NEGATIVE); URINE NITRITE NEGATIVE (NEGATIVE); URINE PROTEIN 3+ (NEGATIVE); URINE UROBILINOGEN NEGATIVE mg/dL (0.2-1.0)
[2019-01-19 13:24] LABS: EPI CELLS RARE /HPF (FEW); URINE RBC 2 /hpf (0-3); URINE WBC 1 /hpf (3-5)
--- NOTE | 2019-01-19 13:47 | CONSULT ---
Consult - text type - Consultation Consultation Note: NEUROLOGY CONSULT APPRECIATED: Events reviewed and discussed with staff. Consults read and appreciated. This 73 yo RH female lives alone with pmhx HTN, CHF, CAD s/p stent, MM undergoing chemo, asthma, and hypothyroidism. Maintained on diltiazem, allopurinol, levothyroxine, pantoprazole, atovaquone, asa, duoneb, atorvastatin, plavix, furosemide, losartan, metoprolol. Reports approximately 4 months of "imbalance" and "feeling faint" especially upon standing, requiring recent use of cane. No falls or LOC. She reports a remote history of "vertigo," however reports this "feels different." Head CT: chronic microvascular changes, calcified intracranial arteries Alb 1.6, TSH=11.2. B12, RPR normal or neg. H/H= (dropping) 07/28. [id number] FRANCIS: BPs 90/60s. Cor reg. No bruit. Neck supple. NEURO: Mentation/Speech: [place]. December,. [place]. Poor reversal. /3 recall at 3. CNII-CNXII: EOM intact with full pederson appreciated. No facial. + glabella Motor: No drift. Strength normal. Reflexes brisk. Toes downgoing. Coordination: No FTN dystaxia. Sensation: Normal to vibration. Romberg - Gait: Normal stride. Pt can walk on toes and heels without difficulty. Impression: 1. Mild B/L Cerebral dysfunction (RISK ANALYST microvascular changes, chronic ; OMS may be present) 2. Orthostatic Hypotension. Anemia may be contributing Suggest: Orthostatic BP's, may require adjustment in BP meds Agree with cardio and telemetry Endocrine consultation for hypothyroidism (TSH=11.2) MRI of Brain (C-) with attention to internal auditory canals if not previously done in eval of vertigo. Heme/Onc consult- For anemia and to Confirm chemotherapy agents for Myeloma. (Neuropathic agents could cause dysautonomia.) Order Carotid duplex doppler D/C Meclizine due to anti-cholinergic effects PT with walker for gait training Pt may require higher level of care (home health services) Thank you very much, Aron Hsu MD
[2019-01-19 14:07] LABS: RATIO URIN PROTEIN/URIN CREAT 5.25 MG/DL
--- NOTE | 2019-01-19 15:42 | PN ---
Progress Note (short form) - Note Progress Note: Patient seen and examined reports feeling better AFVSS Cor: RSR, No murmurs, No gallops Lungs: Clear to P&A Abd: Soft, Normal bowel sounds, No organomegaly Ext:No significant edema labs/meds reviewed a/p 73 y/o patient with myeloma/amyloid/ nephrotic syndrome/ CHF s/p drug eluting stents myeloma/amyloid -- on velcade/cytoxan/dex.stable disease. ? rev/dex chf s/p ricky on asa/plavi lasix as needed ckd -- f/u renal consult dizziness--? hemodynamics related
[2019-01-19] MEDS: ATOVAQUONE 750 MG/5 ML (UNIT-DOSE PACKAGING) PO SCH (18:42)
[2019-01-19] MEDS: ATORVASTATIN CA 40 MG TABLET (FP) PO SCH (21:22)
--- NOTE | 2019-01-19 22:30 | PN ---
Progress Note, Physician History of Present Illness: Pt still complains of feeling dizzy? but not true vertigo? - Current Medication List Current Medications: Active Medications Acetaminophen (Tylenol -) 650 mg PO Q6H PRN PRN Reason: PAIN LEVEL 1-5 Albuterol/Ipratropium (Duoneb -) 1 amp NEB Q6H PRN PRN Reason: SHORTNESS OF BREATH Allopurinol (Zyloprim -) 300 mg PO DAILY [facility] Last Admin: 01/19/19 09:34 Dose: 300 mg Aspirin (Asa -) 81 mg PO DAILY [facility] Last Admin: 01/19/19 09:33 Dose: 81 mg Atorvastatin Calcium (Lipitor -) 40 mg PO HS [facility] Last Admin: 01/19/19 21:22 Dose: 40 mg Atovaquone (Mepron -) 1,500 mg PO DAILY@1800 [facility] Last Admin: 01/19/19 18:42 Dose: 1,500 mg Clopidogrel Bisulfate (Plavix -) 75 mg PO DAILY [facility] Last Admin: 01/19/19 09:33 Dose: 75 mg Heparin Sodium (Porcine) (Heparin -) 5,000 unit SQ BID [facility] Last Admin: 01/19/19 21:22 Dose: 5,000 unit Levothyroxine Sodium (Synthroid -) 50 mcg PO DAILY@0700 [facility] Last Admin: 01/19/19 06:31 Dose: 50 mcg Metoprolol Succinate (Toprol Xl -) 12.5 mg PO DAILY [facility] Last Admin: 01/19/19 09:33 Dose: 12.5 mg Pantoprazole Sodium (Protonix -) 40 mg PO DAILY [facility] Last Admin: 01/19/19 09:33 Dose: 40 mg - Objective Vital Signs: Vital Signs Temperature 98.8 F 01/19/19 18:46 Pulse Rate 98 H 01/19/19 18:46 Respiratory Rate 18 01/19/19 18:46 Blood Pressure 92/60 01/19/19 18:46 O2 Sat by Pulse Oximetry (%) 100 01/19/19 21:00 Neck: Yes: WNL, Supple Cardiovascular: Yes: WNL, Regular Rate and Rhythm Respiratory: Yes: WNL, Regular, CTA Bilaterally Gastrointestinal: Yes: WNL, Normal Bowel Sounds, Soft Edema: LLE: Trace, RLE: Trace Labs: CBC, BMP 01/19/19 05:30 01/19/19 05:30 INR, PTT INR 1.08 (0.83-1.09) 01/15/19 18:14 Problem List - Problems (1) Dizziness Assessment/Plan: Carotid doppler pending CT scan head did not show any acute pathology Will dc meclizine ?Orthostatic hypotension PT eval Code(s): R42 - DIZZINESS AND GIDDINESS (2) Anemia Assessment/Plan: H/H remains stable Pt has h/o rectal polyp Needs colonoscopy as outpt Code(s): D64.9 - ANEMIA, UNSPECIFIED (3) CHF (congestive heart failure) Assessment/Plan: Acute on chronic systolic/diastolic heart failure Lasix on hold due to elevated creatinine Lasix dosing as per cardio Code(s): I50.9 - HEART FAILURE, UNSPECIFIED Qualifiers: Heart failure type: systolic Heart failure chronicity: unspecified Qualified Code(s): I50.20 - Unspecified systolic (congestive) heart failure (4) CKD (chronic kidney disease) Assessment/Plan: Lasix/losartan on hold as per renal Monitor electrolytes H/O proteinuria/multiple myeloma Code(s): N18.9 - CHRONIC KIDNEY DISEASE, UNSPECIFIED (5) Elevated troponin Code(s): R74.8 - ABNORMAL LEVELS OF OTHER SERUM ENZYMES (6) HTN (hypertension) Assessment/Plan: Losartan to be on hold as per renal Code(s): I10 - ESSENTIAL (PRIMARY) HYPERTENSION Qualifiers: Hypertension type: essential hypertension Qualified Code(s): I10 - Essential (primary) hypertension (7) Multiple myeloma Assessment/Plan: As per onco Code(s): C90.00 - MULTIPLE MYELOMA NOT HAVING ACHIEVED REMISSION Qualifiers: Multiple myeloma remission status: not in remission Qualified Code(s): C90.00 - Multiple myeloma not having achieved remission (8) HLD (hyperlipidemia) Assessment/Plan: Cont lipitor Code(s): E78.5 - HYPERLIPIDEMIA, UNSPECIFIED Qualifiers: Hyperlipidemia type: unspecified Qualified Code(s): E78.5 - Hyperlipidemia , unspecified (9) Hypothyroidism Assessment/Plan: Cont levothyroxine Code(s): E03.9 - HYPOTHYROIDISM, UNSPECIFIED Qualifiers: Hypothyroidism type: acquired Qualified Code(s): E03.9 - Hypothyroidism, unspecified (10) CAD (coronary artery disease) Assessment/Plan: Cont asa/plavix Code(s): I25.10 - ATHSCL HEART DISEASE OF [place] CORONARY ARTERY W/O ANG PCTRS (11) Diarrhea Assessment/Plan: Resolved Code(s): R19.7 - DIARRHEA, UNSPECIFIED Qualifiers: Diarrhea type: unspecified type Qualified Code(s): R19.7 - Diarrhea, unspecified
[2019-01-20] MEDS: LEVOTHYROXINE NA 50 MCG TABLET (FP) PO SCH (06:45)
[2019-01-20 07:00] LABS: BASO % 0.5 % (0-2.0); EOS % 1.7 % (0-4.5); HEMOGLOBIN 8.8 GM/dL (10.7-15.3); LYMPH % 28.5 % (8-40); MCH 31.2 pg (25.7-33.7); MEAN CELL VOLUME 91.7 fl (80-96); MEAN PLT VOLUME 9.3 fl (7.5-11.1); MONO % 13.7 % (3.8-10.2); NEUT % 55.6 % (42.8-82.8); PLATELET COUNT 97 K/MM3 (134-434); RBC 2.83 M/mm3 (3.60-5.2); RDW 19.7 % (11.6-15.6); WHITE BLOOD COUNT 3.9 K/mm3 (4.0-10.0)
[2019-01-20 07:38] LABS: ALBUMIN 1.8 g/dl (3.4-5.0); ALK PHOS 64 U/L (45-117); ANION GAP 8 MMOL/L (8-16); BILIRUBIN,TOTAL 0.3 mg/dL (0.2-1); BLOOD UREA NITROGEN 41 mg/dL (7-18); CALCIUM 9.9 mg/dL (8.5-10.1); CHLORIDE 103 mmol/L (98-107); CO2 25 mmol/L (21-32); CREATININE 1.1 mg/dL (0.55-1.3); GLUCOSE,RANDOM 98 mg/dL (74-106); POTASSIUM 3.9 mmol/L (3.5-5.1); SGOT/AST 9 U/L (15-37); SGPT/ALT 13 U/L (13-61); SODIUM 136 mmol/L (136-145); TOT PROT 7.7 g/dl (6.4-8.2)
--- NOTE | 2019-01-20 08:40 | PN ---
Progress Note, Physician Chief Complaint: Feeling better Less dizzy TELE: NSR, NSST changes - Current Medication List Current Medications: Active Medications Acetaminophen (Tylenol -) 650 mg PO Q6H PRN PRN Reason: PAIN LEVEL 1-5 Albuterol/Ipratropium (Duoneb -) 1 amp NEB Q6H PRN PRN Reason: SHORTNESS OF BREATH Allopurinol (Zyloprim -) 300 mg PO DAILY [facility] Last Admin: 01/19/19 09:34 Dose: 300 mg Aspirin (Asa -) 81 mg PO DAILY [facility] Last Admin: 01/19/19 09:33 Dose: 81 mg Atorvastatin Calcium (Lipitor -) 40 mg PO HS [facility] Last Admin: 01/19/19 21:22 Dose: 40 mg Atovaquone (Mepron -) 1,500 mg PO DAILY@1800 [facility] Last Admin: 01/19/19 18:42 Dose: 1,500 mg Clopidogrel Bisulfate (Plavix -) 75 mg PO DAILY [facility] Last Admin: 01/19/19 09:33 Dose: 75 mg Heparin Sodium (Porcine) (Heparin -) 5,000 unit SQ BID [facility] Last Admin: 01/19/19 21:22 Dose: 5,000 unit Levothyroxine Sodium (Synthroid -) 50 mcg PO DAILY@0700 [facility] Last Admin: 01/20/19 06:45 Dose: 50 mcg Metoprolol Succinate (Toprol Xl -) 12.5 mg PO DAILY [facility] Last Admin: 01/19/19 09:33 Dose: 12.5 mg Pantoprazole Sodium (Protonix -) 40 mg PO DAILY [facility] Last Admin: 01/19/19 09:33 Dose: 40 mg - Objective Vital Signs: Vital Signs Temperature 99.5 F 01/20/19 02:00 Pulse Rate 102 H 01/20/19 03:16 Respiratory Rate 21 H 01/20/19 02:00 Blood Pressure 95/77 01/20/19 03:16 O2 Sat by Pulse Oximetry (%) 98 01/20/19 00:00 Constitutional: Yes: No Distress Cardiovascular: Yes: Regular Rate and Rhythm Respiratory: Yes: CTA Bilaterally (no rales.) Gastrointestinal: Yes: Soft Edema: No Neurological: Yes: Alert, Oriented ...Motor Strength: WNL Labs: CBC, BMP 01/20/19 05:30 01/20/19 06:00 INR, PTT INR 1.08 (0.83-1.09) 01/15/19 18:14 Laboratory Tests 01/15/19 01/16/19 01/16/19 18:14 06:30 15:58 WBC Hgb Hct Plt Count INR 1.08 Sodium Potassium BUN Creatinine AST ALT Creatine Kinase 48 61 Troponin I 0.07 H 0.06 H 01/17/19 01/17/19 01/18/19 18:00 18:00 07:15 WBC 4.5 Hgb 9.7 L Hct 28.6 L Plt Count 122 L INR Sodium 138 Potassium 4.0 BUN Creatinine 1.4 H AST ALT Creatine Kinase 33 Troponin I 0.06 H 0.06 H 01/19/19 01/19/19 01/20/19 05:30 05:30 05:30 WBC 4.1 3.9 L Hgb 9.0 L 8.8 L Hct 26.0 L Plt Count 101 L 97 L INR Sodium 136 Potassium 3.6 BUN 42 H Creatinine 1.0 AST 12 L ALT 12 L Creatine Kinase Troponin I 01/20/19 06:00 WBC Hgb Hct Plt Count INR Sodium 136 Potassium 3.9 BUN 41 H Creatinine 1.1 AST ALT Creatine Kinase Troponin I Problem List - Problems (1) Multiple myeloma Code(s): C90.00 - MULTIPLE MYELOMA NOT HAVING ACHIEVED REMISSION Qualifiers: Multiple myeloma remission status: not in remission Qualified Code(s): C90.00 - Multiple myeloma not having achieved remission (2) Dizziness Code(s): R42 - DIZZINESS AND GIDDINESS (3) ASHD (arteriosclerotic heart disease) Code(s): I25.10 - ATHSCL HEART DISEASE OF [place] CORONARY ARTERY W/O ANG PCTRS (4) Abnormal ECG Code(s): R94.31 - ABNORMAL ELECTROCARDIOGRAM [ECG] [EKG] (5) Anemia Code(s): D64.9 - ANEMIA, UNSPECIFIED Qualifiers: Chronic kidney disease stage: unspecified stage (6) CHF (congestive heart failure) Code(s): I50.9 - HEART FAILURE, UNSPECIFIED Qualifiers: Heart failure type: systolic Heart failure chronicity: unspecified Qualified Code(s): I50.20 - Unspecified systolic (congestive) heart failure (7) Elevated troponin Code(s): R74.8 - ABNORMAL LEVELS OF OTHER SERUM ENZYMES (8) PAF (paroxysmal atrial fibrillation) Code(s): I48.0 - PAROXYSMAL ATRIAL FIBRILLATION Assessment/Plan IMP: Dizziness Cardiomyopathy, mild LV systolic dysfunction CAD with recent NSTEMI s/p HOLLY D1 Multiple myeloma on chemotherapy Chronic Anemia- guaiac negative, but known rectal polyp REC: 1. Dizziness improved after reducing Lasix. Would resume 20mg daily moving forward as she has mild LV dysfx and has been prone to volume overload. 2. Discontinued Diltiazem as should be avoided with LV dysfx and she is being treated with Toprol for CAD and chronic CHF. 3. Telemetry has been unrevealing with no arrhythmia detected. 4. Continue ASA/Plavix/Statin/ Beta savana and ARB 5. Head CT negative for mass, bleed, CVA. 6. Agree w/ d/c Neurontin .
[2019-01-20] MEDS: metoPROLOL SUCCINATE 25 MG TAB.SR.24H (FP) PO SCH (09:44)
[2019-01-20] MEDS: ASPIRIN 81 MG CHEWABLE TABLETS PO SCH (09:44)
[2019-01-20] MEDS: ALLOPURINOL 300 MG TABLET (FP) PO SCH (09:45)
[2019-01-20] MEDS: PANTOPRAZOLE 40 MG TABLET (FP) PO SCH (09:45)
[2019-01-20] MEDS: CLOPIDOGREL BISULFATE 75 MG TABLET (FP) PO SCH (09:45)
[2019-01-20] MEDS: HEPARIN NA (PORCINE) 5,000 UNITS/ML 1ML VIAL SQ SCH ×2 (09:46→21:22)
--- NOTE | 2019-01-20 13:59 | PN ---
Progress Note, Physician History of Present Illness: Pt seen and examined at bedside. She is awake and alert. She feels that the dizziness is improved. - Current Medication List Current Medications: Active Medications Acetaminophen (Tylenol -) 650 mg PO Q6H PRN PRN Reason: PAIN LEVEL 1-5 Albuterol/Ipratropium (Duoneb -) 1 amp NEB Q6H PRN PRN Reason: SHORTNESS OF BREATH Allopurinol (Zyloprim -) 300 mg PO DAILY [facility] Last Admin: 01/20/19 09:45 Dose: 300 mg Aspirin (Asa -) 81 mg PO DAILY [facility] Last Admin: 01/20/19 09:44 Dose: 81 mg Atorvastatin Calcium (Lipitor -) 40 mg PO HS [facility] Last Admin: 01/19/19 21:22 Dose: 40 mg Atovaquone (Mepron -) 1,500 mg PO DAILY@1800 [facility] Last Admin: 01/19/19 18:42 Dose: 1,500 mg Clopidogrel Bisulfate (Plavix -) 75 mg PO DAILY [facility] Last Admin: 01/20/19 09:45 Dose: 75 mg Heparin Sodium (Porcine) (Heparin -) 5,000 unit SQ BID [facility] Last Admin: 01/20/19 09:46 Dose: 5,000 unit Levothyroxine Sodium (Synthroid -) 50 mcg PO DAILY@0700 [facility] Last Admin: 01/20/19 06:45 Dose: 50 mcg Metoprolol Succinate (Toprol Xl -) 12.5 mg PO DAILY [facility] Last Admin: 01/20/19 09:44 Dose: 12.5 mg Pantoprazole Sodium (Protonix -) 40 mg PO DAILY [facility] Last Admin: 01/20/19 09:45 Dose: 40 mg - Objective Vital Signs: Vital Signs Temperature 99.5 F 01/20/19 02:00 Pulse Rate 102 H 01/20/19 03:16 Respiratory Rate 21 H 01/20/19 09:00 Blood Pressure 95/77 01/20/19 03:16 O2 Sat by Pulse Oximetry (%) 98 01/20/19 09:00 Constitutional: Yes: Calm Eyes: Yes: Conjunctiva Clear HENT: Yes: Atraumatic Neck: Yes: Supple Cardiovascular: Yes: S1, S2 Respiratory: Yes: CTA Bilaterally Gastrointestinal: Yes: Soft Genitourinary: Yes: WNL Musculoskeletal: Yes: WNL Edema: No Neurological: Yes: Oriented Psychiatric: Yes: Oriented Labs: CBC, BMP 01/20/19 05:30 01/20/19 06:00 INR, PTT INR 1.08 (0.83-1.09) 01/15/19 18:14 Problem List - Problems (1) Dizziness Code(s): R42 - DIZZINESS AND GIDDINESS Assessment/Plan Current Medications Generic Name Dose Route Start Last Admin Trade Name Freq PRN Reason Stop Dose Admin Acetaminophen 650 mg 01/16/19 02:57 Tylenol - PO Q6H PRN PAIN LEVEL 1-5 Albuterol/Ipratropium 1 amp 01/16/19 02:57 Duoneb - NEB Q6H PRN SHORTNESS OF BREATH Allopurinol 300 mg 01/16/19 10:00 01/20/19 09:45 Zyloprim - PO 300 mg DAILY [facility] Administration Aspirin 81 mg 01/16/19 10:00 01/20/19 09:44 Asa - PO 81 mg DAILY [facility] Administration Atorvastatin Calcium 40 mg 01/16/19 22:00 01/19/19 21:22 Lipitor - PO 40 mg HS [facility] Administration Atovaquone 1,500 mg 01/16/19 18:00 01/19/19 18:42 Mepron - PO 1,500 mg DAILY@1800 [facility] Administration Clopidogrel Bisulfate 75 mg 01/16/19 10:00 01/20/19 09:45 Plavix - PO 75 mg DAILY [facility] Administration Heparin Sodium (Porcine) 5,000 unit 01/16/19 10:00 01/20/19 09:46 Heparin - SQ 5,000 unit BID [facility] Administration Levothyroxine Sodium 50 mcg 01/16/19 07:00 01/20/19 06:45 Synthroid - PO 50 mcg DAILY@0700 [facility] Administration Metoprolol Succinate 12.5 mg 01/16/19 10:00 01/20/19 09:44 Toprol Xl - PO 12.5 mg DAILY [facility] Administration Pantoprazole Sodium 40 mg 01/16/19 10:00 01/20/19 09:45 Protonix - PO 40 mg DAILY [facility] Administration Impression 1. proteinuria 2. multiple myeloma 3. amyloid 4. dizziness 5. hypotension 6. HLD 7. hypothyroidism 8. anemia 9. CKD Plan - furosemide 20 mg daily - monitor renal function - losartan on hold - monitor bp
[2019-01-20] MEDS: ATOVAQUONE 750 MG/5 ML (UNIT-DOSE PACKAGING) PO SCH (17:01)
--- NOTE | 2019-01-20 21:11 | PN ---
Progress Note (short form) - Note Progress Note: Patient seen and examined reports feeling better AFVSS Cor: RSR, No murmurs, No gallops Lungs: Clear to P&A Abd: Soft, Normal bowel sounds, No organomegaly Ext:No significant edema labs/meds reviewed a/p 73 y/o patient with myeloma/amyloid/ nephrotic syndrome/ CHF s/p drug eluting stents myeloma/amyloid -- on velcade/cytoxan/dex.stable disease. ? rev/dex chf s/p ricky on asa/plavi lasix as needed ckd -- f/u renal consult discussed with cardiology discussed with son
[2019-01-20] MEDS: ATORVASTATIN CA 40 MG TABLET (FP) PO SCH (21:21)
[2019-01-20] MEDS: ALPRAZolam 0.25 MG TABLET PO PRN (23:17)
--- NOTE | 2019-01-20 23:51 | PN ---
Progress Note, Physician History of Present Illness: No new complaints - Current Medication List Current Medications: Active Medications Acetaminophen (Tylenol -) 650 mg PO Q6H PRN PRN Reason: PAIN LEVEL 1-5 Albuterol/Ipratropium (Duoneb -) 1 amp NEB Q6H PRN PRN Reason: SHORTNESS OF BREATH Allopurinol (Zyloprim -) 300 mg PO DAILY [facility] Last Admin: 01/20/19 09:45 Dose: 300 mg Alprazolam (Xanax -) 0.25 mg PO Q12H PRN PRN Reason: ANXIETY Last Admin: 01/20/19 23:17 Dose: 0.25 mg Aspirin (Asa -) 81 mg PO DAILY [facility] Last Admin: 01/20/19 09:44 Dose: 81 mg Atorvastatin Calcium (Lipitor -) 40 mg PO HS [facility] Last Admin: 01/20/19 21:21 Dose: 40 mg Atovaquone (Mepron -) 1,500 mg PO DAILY@1800 [facility] Last Admin: 01/20/19 17:01 Dose: 1,500 mg Clopidogrel Bisulfate (Plavix -) 75 mg PO DAILY [facility] Last Admin: 01/20/19 09:45 Dose: 75 mg Furosemide (Lasix -) 20 mg PO DAILY [facility] Heparin Sodium (Porcine) (Heparin -) 5,000 unit SQ BID [facility] Last Admin: 01/20/19 21:22 Dose: 5,000 unit Levothyroxine Sodium (Synthroid -) 50 mcg PO DAILY@0700 [facility] Last Admin: 01/20/19 06:45 Dose: 50 mcg Metoprolol Succinate (Toprol Xl -) 12.5 mg PO DAILY [facility] Last Admin: 01/20/19 09:44 Dose: 12.5 mg Pantoprazole Sodium (Protonix -) 40 mg PO DAILY [facility] Last Admin: 01/20/19 09:45 Dose: 40 mg - Objective Vital Signs: Vital Signs Temperature 99.5 F 01/20/19 02:00 Pulse Rate 98 H 01/20/19 23:04 Respiratory Rate 22 H 01/20/19 23:04 Blood Pressure 105/67 01/20/19 23:04 O2 Sat by Pulse Oximetry (%) 98 01/20/19 19:59 Neck: Yes: WNL, Supple Cardiovascular: Yes: WNL, Regular Rate and Rhythm Respiratory: Yes: WNL, Regular, CTA Bilaterally Gastrointestinal: Yes: WNL, Normal Bowel Sounds, Soft Labs: CBC, BMP 01/20/19 05:30 01/20/19 06:00 INR, PTT INR 1.08 (0.83-1.09) 01/15/19 18:14 Problem List - Problems (1) Dizziness Assessment/Plan: Carotid doppler no significant stenosis CT scan head did not show any acute pathology ?Orthostatic hypotension PT eval Long d/w pt and her son about dc planning Possible STR or longer hrs of care at home Code(s): R42 - DIZZINESS AND GIDDINESS (2) Anemia Assessment/Plan: H/H remains stable Pt has h/o rectal polyp Needs colonoscopy as outpt Code(s): D64.9 - ANEMIA, UNSPECIFIED (3) CHF (congestive heart failure) Assessment/Plan: Acute on chronic systolic/diastolic heart failure Lasix dosing as per cardio Code(s): I50.9 - HEART FAILURE, UNSPECIFIED Qualifiers: Heart failure type: systolic Heart failure chronicity: unspecified Qualified Code(s): I50.20 - Unspecified systolic (congestive) heart failure (4) CKD (chronic kidney disease) Assessment/Plan: Monitor electrolytes H/O proteinuria/multiple myeloma Code(s): N18.9 - CHRONIC KIDNEY DISEASE, UNSPECIFIED (5) Elevated troponin Assessment/Plan: Due to multiple co-morbidities Code(s): R74.8 - ABNORMAL LEVELS OF OTHER SERUM ENZYMES (6) HTN (hypertension) Assessment/Plan: BP stable Code(s): I10 - ESSENTIAL (PRIMARY) HYPERTENSION Qualifiers: Hypertension type: essential hypertension Qualified Code(s): I10 - Essential (primary) hypertension (7) Multiple myeloma Assessment/Plan: As per onco Code(s): C90.00 - MULTIPLE MYELOMA NOT HAVING ACHIEVED REMISSION Qualifiers: Multiple myeloma remission status: not in remission Qualified Code(s): C90.00 - Multiple myeloma not having achieved remission (8) HLD (hyperlipidemia) Assessment/Plan: Cont lipitor Code(s): E78.5 - HYPERLIPIDEMIA, UNSPECIFIED Qualifiers: Hyperlipidemia type: unspecified Qualified Code(s): E78.5 - Hyperlipidemia , unspecified (9) Hypothyroidism Code(s): E03.9 - HYPOTHYROIDISM, UNSPECIFIED Qualifiers: Hypothyroidism type: acquired Qualified Code(s): E03.9 - Hypothyroidism, unspecified (10) CAD (coronary artery disease) Code(s): I25.10 - ATHSCL HEART DISEASE OF [place] CORONARY ARTERY W/O ANG PCTRS (11) Diarrhea Code(s): R19.7 - DIARRHEA, UNSPECIFIED Qualifiers: Diarrhea type: unspecified type Qualified Code(s): R19.7 - Diarrhea, unspecified
[2019-01-21] MEDS ORDERED: PT OWN MED DRAWER 7, Y5N ONE ×2 (05:30→09:33)
[2019-01-21] MEDS: LEVOTHYROXINE NA 50 MCG TABLET (FP) PO SCH (06:21)
--- NOTE | 2019-01-21 09:33 | PN ---
Progress Note, Physician Chief Complaint: feels well No CP Dizziness improved. History of Present Illness: TELE: NSR - Current Medication List Current Medications: Active Medications Acetaminophen (Tylenol -) 650 mg PO Q6H PRN PRN Reason: PAIN LEVEL 1-5 Allopurinol (Zyloprim -) 300 mg PO DAILY [facility] Last Admin: 01/20/19 09:45 Dose: 300 mg Alprazolam (Xanax -) 0.25 mg PO Q12H PRN PRN Reason: ANXIETY Last Admin: 01/20/19 23:17 Dose: 0.25 mg Aspirin (Asa -) 81 mg PO DAILY [facility] Last Admin: 01/20/19 09:44 Dose: 81 mg Atorvastatin Calcium (Lipitor -) 40 mg PO HS [facility] Last Admin: 01/20/19 21:21 Dose: 40 mg Atovaquone (Mepron -) 1,500 mg PO DAILY@1800 [facility] Last Admin: 01/20/19 17:01 Dose: 1,500 mg Clopidogrel Bisulfate (Plavix -) 75 mg PO DAILY [facility] Last Admin: 01/20/19 09:45 Dose: 75 mg Furosemide (Lasix -) 20 mg PO DAILY [facility] Heparin Sodium (Porcine) (Heparin -) 5,000 unit SQ BID [facility] Last Admin: 01/20/19 21:22 Dose: 5,000 unit Levothyroxine Sodium (Synthroid -) 50 mcg PO DAILY@0700 [facility] Last Admin: 01/21/19 06:21 Dose: 50 mcg Metoprolol Succinate (Toprol Xl -) 12.5 mg PO DAILY [facility] Last Admin: 01/20/19 09:44 Dose: 12.5 mg Pantoprazole Sodium (Protonix -) 40 mg PO DAILY [facility] Last Admin: 01/20/19 09:45 Dose: 40 mg - Objective Vital Signs: Vital Signs Temperature 98.4 F 01/21/19 06:00 Pulse Rate 97 H 01/21/19 06:00 Respiratory Rate 20 01/21/19 06:00 Blood Pressure 108/68 01/21/19 06:00 O2 Sat by Pulse Oximetry (%) 98 01/20/19 19:59 Constitutional: Yes: No Distress Cardiovascular: Yes: Regular Rate and Rhythm Respiratory: Yes: CTA Bilaterally Gastrointestinal: Yes: Soft Edema: No Neurological: Yes: Alert, Oriented Labs: CBC, BMP 01/20/19 05:30 01/20/19 06:00 INR, PTT INR 1.08 (0.83-1.09) 01/15/19 18:14 - ....Imaging EKG: Image Reviewed Problem List - Problems (1) Multiple myeloma Code(s): C90.00 - MULTIPLE MYELOMA NOT HAVING ACHIEVED REMISSION Qualifiers: Multiple myeloma remission status: not in remission Qualified Code(s): C90.00 - Multiple myeloma not having achieved remission (2) Dizziness Code(s): R42 - DIZZINESS AND GIDDINESS (3) ASHD (arteriosclerotic heart disease) Code(s): I25.10 - ATHSCL HEART DISEASE OF [place] CORONARY ARTERY W/O ANG PCTRS (4) Abnormal ECG Code(s): R94.31 - ABNORMAL ELECTROCARDIOGRAM [ECG] [EKG] (5) Anemia Code(s): D64.9 - ANEMIA, UNSPECIFIED Qualifiers: Chronic kidney disease stage: unspecified stage (6) CHF (congestive heart failure) Code(s): I50.9 - HEART FAILURE, UNSPECIFIED Qualifiers: Heart failure type: systolic Heart failure chronicity: unspecified Qualified Code(s): I50.20 - Unspecified systolic (congestive) heart failure (7) Elevated troponin Code(s): R74.8 - ABNORMAL LEVELS OF OTHER SERUM ENZYMES (8) PAF (paroxysmal atrial fibrillation) Code(s): I48.0 - PAROXYSMAL ATRIAL FIBRILLATION Assessment/Plan IMP: Dizziness Cardiomyopathy, mild LV systolic dysfunction CAD with recent NSTEMI s/p HOLLY D1 Multiple myeloma on chemotherapy Chronic Anemia- guaiac negative, but known rectal polyp REC: 1.Resumed low dose Lasix. 2. Discontinued Diltiazem as should be avoided with LV dysfx and she is being treated with Toprol for CAD and chronic CHF. 3. Telemetry has been unrevealing with no arrhythmia detected. 4. Continue ASA/Plavix/Statin/ Beta savana 5. Head CT negative for mass, bleed, CVA. 6. Agree w/ d/c Neurontin . 7. D/C Planning to SNF
[2019-01-21] MEDS: FUROSEMIDE 20 MG TABLET (FP) PO SCH (09:58)
[2019-01-21] MEDS: CLOPIDOGREL BISULFATE 75 MG TABLET (FP) PO SCH (09:58)
[2019-01-21] MEDS: HEPARIN NA (PORCINE) 5,000 UNITS/ML 1ML VIAL SQ SCH ×2 (09:58→22:05)
[2019-01-21] MEDS: ALLOPURINOL 300 MG TABLET (FP) PO SCH (09:59)
[2019-01-21] MEDS: ASPIRIN 81 MG CHEWABLE TABLETS PO SCH (09:59)
[2019-01-21] MEDS: metoPROLOL SUCCINATE 25 MG TAB.SR.24H (FP) PO SCH (09:59)
[2019-01-21] MEDS: PANTOPRAZOLE 40 MG TABLET (FP) PO SCH (09:59)
--- NOTE | 2019-01-21 10:56 | EKG ---
Test Reason : Blood Pressure : / mmHG Vent. Rate : 095 BPM Atrial Rate : 095 BPM P-R Int : 182 ms QRS Dur : 104 ms QT Int : 338 ms P-R-T Axes : 058 005 227 degrees QTc Int : 424 ms NORMAL SINUS RHYTHM NONSPECIFIC ST ABNORMALITY Confirmed by ALVAREZ BOWLES MD ([id number]) on 01/21/2019 10:55:59 AM Referred By: Confirmed By:ALVAREZ BOWLES MD
--- NOTE | 2019-01-21 13:27 | PN ---
Progress Note, Physician History of Present Illness: Pt seen and examined at bedside. She is awake and alert. She denies shortness of breath. - Current Medication List Current Medications: Active Medications Acetaminophen (Tylenol -) 650 mg PO Q6H PRN PRN Reason: PAIN LEVEL 1-5 Allopurinol (Zyloprim -) 300 mg PO DAILY [facility] Last Admin: 01/21/19 09:59 Dose: 300 mg Alprazolam (Xanax -) 0.25 mg PO Q12H PRN PRN Reason: ANXIETY Last Admin: 01/20/19 23:17 Dose: 0.25 mg Aspirin (Asa -) 81 mg PO DAILY [facility] Last Admin: 01/21/19 09:59 Dose: 81 mg Atorvastatin Calcium (Lipitor -) 40 mg PO HS [facility] Last Admin: 01/20/19 21:21 Dose: 40 mg Atovaquone (Mepron -) 1,500 mg PO DAILY@1800 [facility] Last Admin: 01/20/19 17:01 Dose: 1,500 mg Clopidogrel Bisulfate (Plavix -) 75 mg PO DAILY [facility] Last Admin: 01/21/19 09:58 Dose: 75 mg Furosemide (Lasix -) 20 mg PO DAILY [facility] Last Admin: 01/21/19 09:58 Dose: 20 mg Heparin Sodium (Porcine) (Heparin -) 5,000 unit SQ BID [facility] Last Admin: 01/21/19 09:58 Dose: 5,000 unit Levothyroxine Sodium (Synthroid -) 75 mcg PO DAILY@0700 [facility] Metoprolol Succinate (Toprol Xl -) 12.5 mg PO DAILY [facility] Last Admin: 01/21/19 09:59 Dose: 12.5 mg Pantoprazole Sodium (Protonix -) 40 mg PO DAILY [facility] Last Admin: 01/21/19 09:59 Dose: 40 mg - Objective Vital Signs: Vital Signs Temperature 98.2 F 01/21/19 10:00 Pulse Rate 85 01/21/19 10:00 Respiratory Rate 22 H 01/21/19 10:00 Blood Pressure 111/67 01/21/19 10:00 O2 Sat by Pulse Oximetry (%) 98 01/21/19 10:00 Constitutional: Yes: Calm Eyes: Yes: Conjunctiva Clear HENT: Yes: Atraumatic Cardiovascular: Yes: S1, S2 Respiratory: Yes: CTA Bilaterally Gastrointestinal: Yes: Soft Genitourinary: Yes: WNL Musculoskeletal: Yes: WNL Edema: No Integumentary: Yes: WNL Neurological: Yes: Oriented Psychiatric: Yes: Oriented Labs: CBC, BMP 01/20/19 05:30 01/20/19 06:00 INR, PTT INR 1.08 (0.83-1.09) 01/15/19 18:14 Problem List - Problems (1) Dizziness Code(s): R42 - DIZZINESS AND GIDDINESS Assessment/Plan Current Medications Generic Name Dose Route Start Last Admin Trade Name Freq PRN Reason Stop Dose Admin Acetaminophen 650 mg 01/16/19 02:57 Tylenol - PO Q6H PRN PAIN LEVEL 1-5 Allopurinol 300 mg 01/16/19 10:00 01/21/19 09:59 Zyloprim - PO 300 mg DAILY [facility] Administration Alprazolam 0.25 mg 01/20/19 22:15 01/20/19 23:17 Xanax - PO 0.25 mg Q12H PRN Administration ANXIETY Aspirin 81 mg 01/16/19 10:00 01/21/19 09:59 Asa - PO 81 mg DAILY [facility] Administration Atorvastatin Calcium 40 mg 01/16/19 22:00 01/20/19 21:21 Lipitor - PO 40 mg HS [facility] Administration Atovaquone 1,500 mg 01/16/19 18:00 01/20/19 17:01 Mepron - PO 1,500 mg DAILY@1800 [facility] Administration Clopidogrel Bisulfate 75 mg 01/16/19 10:00 01/21/19 09:58 Plavix - PO 75 mg DAILY [facility] Administration Furosemide 20 mg 01/21/19 10:00 01/21/19 09:58 Lasix - PO 20 mg DAILY [facility] Administration Heparin Sodium (Porcine) 5,000 unit 01/16/19 10:00 01/21/19 09:58 Heparin - SQ 5,000 unit BID [facility] Administration Levothyroxine Sodium 75 mcg 01/22/19 07:00 Synthroid - PO DAILY@0700 [facility] Metoprolol Succinate 12.5 mg 01/16/19 10:00 01/21/19 09:59 Toprol Xl - PO 12.5 mg DAILY [facility] Administration Pantoprazole Sodium 40 mg 01/16/19 10:00 01/21/19 09:59 Protonix - PO 40 mg DAILY [facility] Administration Impression 1. proteinuria 2. multiple myeloma 3. amyloid 4. dizziness 5. hypotension 6. HLD 7. hypothyroidism 8. anemia 9. CKD Plan - cont lasix po - monitor bp on metoprolol - losartan on hold - cardio input appreciated
--- NOTE | 2019-01-21 14:06 | PN ---
Progress Note (short form) - Note Progress Note: Patient seen and examined Dizziness improved No chest pain Complains of swelling of right cheek Last Vital Signs Temp Pulse Resp BP Pulse Ox 98.2 F 85 22 H 111/67 98 01/21/19 10:00 01/21/19 10:00 01/21/19 10:00 01/21/19 10:00 01/21/19 10:00 HEENT: ZOILA, EOM Intact Oropharynx: No thrush, No mucositis, right cheek swelling Cor: RSR, No murmurs, No gallops Lungs: Clear to P&A Abd: Soft, Normal bowel sounds, No organomegaly Ext:No significant edema Skin: No rashes, Integument intact CBC, BMP 01/20/19 05:30 01/20/19 06:00 Current Medications Generic Name Dose Route Start Last Admin Trade Name Freq PRN Reason Stop Dose Admin Acetaminophen 650 mg 01/16/19 02:57 Tylenol - PO Q6H PRN PAIN LEVEL 1-5 Allopurinol 300 mg 01/16/19 10:00 01/21/19 09:59 Zyloprim - PO 300 mg DAILY [facility] Administration Alprazolam 0.25 mg 01/20/19 22:15 01/20/19 23:17 Xanax - PO 0.25 mg Q12H PRN Administration ANXIETY Aspirin 81 mg 01/16/19 10:00 01/21/19 09:59 Asa - PO 81 mg DAILY [facility] Administration Atorvastatin Calcium 40 mg 01/16/19 22:00 01/20/19 21:21 Lipitor - PO 40 mg HS [facility] Administration Atovaquone 1,500 mg 01/16/19 18:00 01/20/19 17:01 Mepron - PO 1,500 mg DAILY@1800 [facility] Administration Clopidogrel Bisulfate 75 mg 01/16/19 10:00 01/21/19 09:58 Plavix - PO 75 mg DAILY [facility] Administration Furosemide 20 mg 01/21/19 10:00 01/21/19 09:58 Lasix - PO 20 mg DAILY [facility] Administration Heparin Sodium (Porcine) 5,000 unit 01/16/19 10:00 01/21/19 09:58 Heparin - SQ 5,000 unit BID [facility] Administration Levothyroxine Sodium 75 mcg 01/22/19 07:00 Synthroid - PO DAILY@0700 [facility] Metoprolol Succinate 12.5 mg 01/16/19 10:00 01/21/19 09:59 Toprol Xl - PO 12.5 mg DAILY [facility] Administration Pantoprazole Sodium 40 mg 01/16/19 10:00 01/21/19 09:59 Protonix - PO 40 mg DAILY [facility] Administration Impression: Myeloma/amyloid Dizziness ASHD Swelling right cheek Pancytopenia Plan Continued monitoring ENT evaluation
[2019-01-21 16:03] VITALS: BMI 23.3
[2019-01-21] MEDS: ATOVAQUONE 750 MG/5 ML (UNIT-DOSE PACKAGING) PO SCH (17:08)
--- NOTE | 2019-01-21 19:03 | CON.ENT ---
Consult Consult Specialty:: otolaryngology Referred by:: dr emmanuel Reason for Consultation:: cheek swollen - History of Present Illness Chief Complaint: cheek swollen History of Present Illness: 73F woke up and felt right cheek slightly sore, swollen this morning. She denies biting her cheek. No dental pains. Never happened before. - History Source History Provided By: Patient - Past Medical History Cardio/Vascular: Yes: CAD (s/p HOLLY D1 this month after NSTEMI), CHF (Chronic systolic CHF, mildly reduced LV function with EF 45%), HTN, Hyperlipdemia Pulmonary: Yes: Asthma Gastrointestinal: Yes: Other (hiatal hernia; rectal polyp) Renal/: Yes: Renal Inusuff, Other (proteinuria) ...: No Psych: Yes: Depression Endocrine: Yes: Hypothyroidism - Past Surgical History Past Surgical History: Yes: Breast Biopsy (right for cysts), Hernia Repair ( laparoscopic hiatal), Hysterectomy, Tubal Ligation - Alcohol/Substance Use Hx Alcohol Use: Yes (occasionally) History of Substance Use: reports: None - Smoking History Smoking history: Never smoked Have you smoked in the past 12 months: No Aproximately how many cigarettes per day: 5 If you are a former smoker, when did you quit?: 1987 - Social History ADL: Independent History of Recent Travel: No Home Medications - Allergies Allergies/Adverse Reactions: Allergies Allergy/AdvReac Type Severity Reaction Status Date / Time Penicillins Allergy Severe Rash Verified 01/15/19 17:46 - Home Medications Home Medications: Ambulatory Orders Gabapentin 300 mg PO DAILY 06/14/13 Diltiazem Cd [Cardizem Cd -] 240 mg PO DAILY 10/11/18 [place]-3/Dha/Epa/Fish Oil [[place] 3 500 Softgel] 1 each PO DAILY 10/11/18 Allopurinol [Zyloprim -] 300 mg PO DAILY #30 tablet 11/09/18 Levothyroxine [Synthroid -] 50 mcg PO DAILY@0700 #30 tablet 11/09/18 Pantoprazole Sodium [Protonix -] 40 mg PO DAILY #30 tablet.ec 11/09/18 Atovaquone 1,500 mg PO DAILY #300 ml 11/10/18 Aspirin [ASA -] 81 mg PO DAILY 12/30/18 Acetaminophen [Tylenol .Regular Strength -] 650 mg PO Q6H PRN #100 tablet Albuterol 2.5/Ipratropium 0.5 [Duoneb -] 1 amp NEB Q6H PRN #30 amp 01/07/19 Atorvastatin Ca [Lipitor] 40 mg PO HS #30 tablet 01/07/19 Clopidogrel Bisulfate [Plavix -] 75 mg PO DAILY #30 tablet 01/07/19 Furosemide [Lasix -] 40 mg PO BID@0600,1400 #60 tablet 01/07/19 Losartan Potassium [Cozaar -] 25 mg PO DAILY #30 tablet 01/07/19 Metoprolol Succinate [Toprol XL -] 12.5 mg PO DAILY #30 tab.sr.24h 01/07/19 Potassium Chloride [K-Dur -] 20 meq PO DAILY #30 tablet.er 01/07/19 Valacyclovir HCl [Valtrex -] 500 mg PO DAILY #30 tablet 01/07/19 Family Disease History - Family Disease History Family Disease History: [place]: Daughter (1 passed at 14yo of Hodgkin's lymphoma; 1 passed at 48 of lupus), Other: Daughter Physical Exam-ENT Vital Signs: Vital Signs Temperature 99.4 F 01/21/19 18:23 Pulse Rate 98 H 01/21/19 18:23 Respiratory Rate 20 01/21/19 14:00 Blood Pressure 119/76 01/21/19 18:23 O2 Sat by Pulse Oximetry (%) 98 01/21/19 10:00 Constitutional: Yes: Well Nourished, No Distress, Other (laying in ICU bed. very pleasant, conversive. nml speech) Head: Yes: WNL Face: Yes: WNL, Other (There is redundant tissue over bilateral jowels as viewed while she lays in the bed. Perhaps the right is sl more prominent but no sig asymmetry is noted.) Eyes: Yes: WNL Nose: Yes: WNL Nasal Passage: Yes: WNL Oral/Pharynx: Yes: Other (partial dentition. Right max molar sl everted towards cheek. She is most tender at a point directly apposing this tooth on the cheek. No mucosal abnmlties. Buccal fat pads palpated with bimanual exam, grossly symmetrical. Tonsils recessed grossly, strong gag. Post o/p clear. FOM soft, flat. Parotid ducts wnl, no stones appreciated.) Outer Ear: Yes: WNL Ear Canal: Yes: Cerumen Neck: Yes: Supple, Other (vague thyroid fullness (f/u MD monitoring thyroid nodules) Ptotic SMGs. Symmetrical parotids. No gross masses appreciated no erythema or induration of fluctuance of skin of neck/face) Respiratory: Yes: WNL Neurological: Yes: Other (cn3-7,11,12 intact, symmetrical) Problem List - Problems (1) Facial swelling Assessment/Plan: Pt feels right cheek swollen, uncomfortable. No overt pathology noted. My exam is effectively normal. She is minimally point tender on the right cheek mucosa where the adjacent molar contacts it. - She may have slept on right face overnight, with the everted right maxillary molar pressing on the cheek causing pain and/or third spacing into the cheek. - There is redundancy of tissues/fat on her face but I do not appreciate any significant asymmetry. She tends to keep her head turned right, and the excess skin sags more here, but when midline it appears quite symmetrical - No fevers or WBC elevation. Last temp 99.4. If trends up, persists/worsens or concern for infection, recommend CT Face with contrast. - Possible odontogenic. DDS f/u - Pt should follow up with me in one month after discharge for repeat examination. Will sign off. Please call with questions. Code(s): R22.0 - LOCALIZED SWELLING, MASS AND LUMP, HEAD
[2019-01-21] MEDS: ALPRAZolam 0.25 MG TABLET PO PRN (22:04)
[2019-01-21] MEDS: ATORVASTATIN CA 40 MG TABLET (FP) PO SCH (22:05)
--- NOTE | 2019-01-21 22:11 | PN ---
Progress Note, Physician - Current Medication List Current Medications: Active Medications Acetaminophen (Tylenol -) 650 mg PO Q6H PRN PRN Reason: PAIN LEVEL 1-5 Allopurinol (Zyloprim -) 300 mg PO DAILY [facility] Last Admin: 01/21/19 09:59 Dose: 300 mg Alprazolam (Xanax -) 0.25 mg PO Q12H PRN PRN Reason: ANXIETY Last Admin: 01/21/19 22:04 Dose: 0.25 mg Aspirin (Asa -) 81 mg PO DAILY [facility] Last Admin: 01/21/19 09:59 Dose: 81 mg Atorvastatin Calcium (Lipitor -) 40 mg PO HS [facility] Last Admin: 01/21/19 22:05 Dose: 40 mg Atovaquone (Mepron -) 1,500 mg PO DAILY@1800 [facility] Last Admin: 01/21/19 17:08 Dose: 1,500 mg Clopidogrel Bisulfate (Plavix -) 75 mg PO DAILY [facility] Last Admin: 01/21/19 09:58 Dose: 75 mg Furosemide (Lasix -) 20 mg PO DAILY [facility] Last Admin: 01/21/19 09:58 Dose: 20 mg Heparin Sodium (Porcine) (Heparin -) 5,000 unit SQ BID [facility] Last Admin: 01/21/19 22:05 Dose: 5,000 unit Levothyroxine Sodium (Synthroid -) 75 mcg PO DAILY@0700 [facility] Metoprolol Succinate (Toprol Xl -) 12.5 mg PO DAILY [facility] Last Admin: 01/21/19 09:59 Dose: 12.5 mg Pantoprazole Sodium (Protonix -) 40 mg PO DAILY [facility] Last Admin: 01/21/19 09:59 Dose: 40 mg - Objective Vital Signs: Vital Signs Temperature 99.4 F 01/21/19 18:23 Pulse Rate 98 H 01/21/19 18:23 Respiratory Rate 20 01/21/19 20:49 Blood Pressure 119/76 01/21/19 18:23 O2 Sat by Pulse Oximetry (%) 98 01/21/19 20:49 Labs: CBC, BMP 01/20/19 05:30 01/20/19 06:00 INR, PTT INR 1.08 (0.83-1.09) 01/15/19 18:14 Problem List - Problems (1) Dizziness Code(s): R42 - DIZZINESS AND GIDDINESS (2) Anemia Code(s): D64.9 - ANEMIA, UNSPECIFIED (3) CHF (congestive heart failure) Code(s): I50.9 - HEART FAILURE, UNSPECIFIED Qualifiers: Heart failure type: systolic Heart failure chronicity: unspecified Qualified Code(s): I50.20 - Unspecified systolic (congestive) heart failure (4) CKD (chronic kidney disease) Code(s): N18.9 - CHRONIC KIDNEY DISEASE, UNSPECIFIED (5) Elevated troponin Code(s): R74.8 - ABNORMAL LEVELS OF OTHER SERUM ENZYMES (6) HTN (hypertension) Code(s): I10 - ESSENTIAL (PRIMARY) HYPERTENSION Qualifiers: Hypertension type: essential hypertension Qualified Code(s): I10 - Essential (primary) hypertension (7) Multiple myeloma Code(s): C90.00 - MULTIPLE MYELOMA NOT HAVING ACHIEVED REMISSION Qualifiers: Multiple myeloma remission status: not in remission Qualified Code(s): C90.00 - Multiple myeloma not having achieved remission (8) HLD (hyperlipidemia) Code(s): E78.5 - HYPERLIPIDEMIA, UNSPECIFIED Qualifiers: Hyperlipidemia type: unspecified Qualified Code(s): E78.5 - Hyperlipidemia , unspecified (9) Hypothyroidism Code(s): E03.9 - HYPOTHYROIDISM, UNSPECIFIED Qualifiers: Hypothyroidism type: acquired Qualified Code(s): E03.9 - Hypothyroidism, unspecified (10) CAD (coronary artery disease) Code(s): I25.10 - ATHSCL HEART DISEASE OF [place] CORONARY ARTERY W/O ANG PCTRS (11) Diarrhea Code(s): R19.7 - DIARRHEA, UNSPECIFIED Qualifiers: Diarrhea type: unspecified type Qualified Code(s): R19.7 - Diarrhea, unspecified
[2019-01-22] MEDS: LEVOTHYROXINE NA 75 MCG TABLET (FP) PO SCH (06:28)
[2019-01-22 06:36] LABS: BASO % 0.5 % (0-2.0); EOS % 1.2 % (0-4.5); HEMATOCRIT 25.2 % (32.4-45.2); HEMOGLOBIN 8.5 GM/dL (10.7-15.3); LYMPH % 31.1 % (8-40); MCH 31.4 pg (25.7-33.7); MCHC 33.8 g/dl (32.0-36.0); MEAN CELL VOLUME 92.9 fl (80-96); MEAN PLT VOLUME 8.6 fl (7.5-11.1); MONO % 15.4 % (3.8-10.2); NEUT % 51.8 % (42.8-82.8); PLATELET COUNT 108 K/MM3 (134-434); RBC 2.71 M/mm3 (3.60-5.2); RDW 19.6 % (11.6-15.6)
[2019-01-22 06:53] LABS: ALBUMIN 1.6 g/dl (3.4-5.0); ALK PHOS 62 U/L (45-117); ANION GAP 10 MMOL/L (8-16); BILIRUBIN,TOTAL 0.2 mg/dL (0.2-1); BLOOD UREA NITROGEN 28 mg/dL (7-18); CALCIUM 10.5 mg/dL (8.5-10.1); CHLORIDE 103 mmol/L (98-107); CO2 25 mmol/L (21-32); CREATININE 0.8 mg/dL (0.55-1.3); GLUCOSE,RANDOM 99 mg/dL (74-106); POTASSIUM 4.1 mmol/L (3.5-5.1); SGOT/AST 16 U/L (15-37); SGPT/ALT 14 U/L (13-61); SODIUM 138 mmol/L (136-145); TOT PROT 7.6 g/dl (6.4-8.2)
--- NOTE | 2019-01-22 08:59 | PN ---
Progress Note, Physician Chief Complaint: Pt A&Ox3; felt mildly dizzy earlier this morning when she tried to sit up; no palpitations, chest pain, or dyspnea. History of Present Illness: 73 yo h/o myeloma on chemo, amyloidosis, gi bleed, symptomatic anemia, FREDDY s/p cardiac stenting at [facility] p/w dizziness and weakness x 2 days. Patient endorses feeling weak and dizzy since . She describes the dizziness as room spinning and it happened when she's at rest. She also endorses poor PO intake but denies melena, n/v, diarrhea, chest pain. - Current Medication List Current Medications: Active Medications Acetaminophen (Tylenol -) 650 mg PO Q6H PRN PRN Reason: PAIN LEVEL 1-5 Allopurinol (Zyloprim -) 300 mg PO DAILY [facility] Last Admin: 01/21/19 09:59 Dose: 300 mg Alprazolam (Xanax -) 0.25 mg PO Q12H PRN PRN Reason: ANXIETY Last Admin: 01/21/19 22:04 Dose: 0.25 mg Aspirin (Asa -) 81 mg PO DAILY [facility] Last Admin: 01/21/19 09:59 Dose: 81 mg Atorvastatin Calcium (Lipitor -) 40 mg PO HS [facility] Last Admin: 01/21/19 22:05 Dose: 40 mg Atovaquone (Mepron -) 1,500 mg PO DAILY@1800 [facility] Last Admin: 01/21/19 17:08 Dose: 1,500 mg Clopidogrel Bisulfate (Plavix -) 75 mg PO DAILY [facility] Last Admin: 01/21/19 09:58 Dose: 75 mg Furosemide (Lasix -) 20 mg PO DAILY [facility] Last Admin: 01/21/19 09:58 Dose: 20 mg Heparin Sodium (Porcine) (Heparin -) 5,000 unit SQ BID [facility] Last Admin: 01/21/19 22:05 Dose: 5,000 unit Levothyroxine Sodium (Synthroid -) 75 mcg PO DAILY@0700 [facility] Last Admin: 01/22/19 06:28 Dose: 75 mcg Metoprolol Succinate (Toprol Xl -) 12.5 mg PO DAILY [facility] Last Admin: 01/21/19 09:59 Dose: 12.5 mg Pantoprazole Sodium (Protonix -) 40 mg PO DAILY [facility] Last Admin: 01/21/19 09:59 Dose: 40 mg - Objective Vital Signs: Vital Signs Temperature 99.4 F 01/21/19 18:23 Pulse Rate 98 H 01/21/19 18:23 Respiratory Rate 20 01/21/19 20:49 Blood Pressure 119/76 01/21/19 18:23 O2 Sat by Pulse Oximetry (%) 98 01/21/19 20:49 Constitutional: Yes: Calm Eyes: Yes: WNL HENT: Yes: WNL Neck: Yes: WNL Cardiovascular: Yes: Regular Rate and Rhythm Respiratory: Yes: WNL Gastrointestinal: Yes: WNL ...Rectal Exam: Yes: Deferred Genitourinary: No: Anuria Musculoskeletal: Yes: Muscle Weakness Extremities: Yes: Cool Edema: No Peripheral Pulses WNL: Yes Integumentary: Yes: WNL Wound/Incision: Yes: Clean/Dry Neurological: Yes: Alert, Oriented, Weakness Psychiatric: Yes: Alert, Oriented, Other (anxiety) Labs: CBC, BMP 01/22/19 05:30 01/22/19 05:30 INR, PTT INR 1.08 (0.83-1.09) 01/15/19 18:14 Problem List - Problems (1) History of heart artery stent Assessment/Plan: Continue metoprolol ER, atorvastatin, ASA, Clopidogrel. TNI 0.06 x 3 Code(s): Z95.5 - PRESENCE OF CORONARY ANGIOPLASTY IMPLANT AND GRAFT (2) Dizziness Code(s): R42 - DIZZINESS AND GIDDINESS (3) Acute on chronic systolic CHF (congestive heart failure) Assessment/Plan: On metoprolol ER, furosemide (the latter was decreased to 20 mg). F/u BP, BUN/Cr, electrolytes, daily weight, Is and Os. Code(s): I50.23 - ACUTE ON CHRONIC SYSTOLIC (CONGESTIVE) HEART FAILURE (4) Hypotension Assessment/Plan: Furosemide decreased. Encourage PO intake. Code(s): I95.9 - HYPOTENSION, UNSPECIFIED Qualifiers: Hypotension type: unspecified hypotension type Qualified Code(s): I95.9 - Hypotension, unspecified (5) Anxiety Assessment/Plan: on benzodiazepine Code(s): F41.9 - ANXIETY DISORDER, UNSPECIFIED (6) Hypothyroidism Assessment/Plan: elevated TSH; recent free T4 WNL. On Synthroid Code(s): E03.9 - HYPOTHYROIDISM, UNSPECIFIED Qualifiers: Hypothyroidism type: acquired Qualified Code(s): E03.9 - Hypothyroidism, unspecified
[2019-01-22] MEDS: ASPIRIN 81 MG CHEWABLE TABLETS PO SCH (10:03)
[2019-01-22] MEDS: FUROSEMIDE 20 MG TABLET (FP) PO SCH (10:03)
[2019-01-22] MEDS: HEPARIN NA (PORCINE) 5,000 UNITS/ML 1ML VIAL SQ SCH ×2 (10:03→22:25)
[2019-01-22] MEDS: CLOPIDOGREL BISULFATE 75 MG TABLET (FP) PO SCH (10:03)
[2019-01-22] MEDS: metoPROLOL SUCCINATE 25 MG TAB.SR.24H (FP) PO SCH (10:03)
[2019-01-22] MEDS: PANTOPRAZOLE 40 MG TABLET (FP) PO SCH (10:03)
[2019-01-22] MEDS: ALLOPURINOL 300 MG TABLET (FP) PO SCH (12:00)
--- NOTE | 2019-01-22 15:24 | PN ---
Progress Note, Physician History of Present Illness: Pt seen and examined at bedside. She is awake and alert. She denies shortness of breath. - Current Medication List Current Medications: Active Medications Acetaminophen (Tylenol -) 650 mg PO Q6H PRN PRN Reason: PAIN LEVEL 1-5 Allopurinol (Zyloprim -) 300 mg PO DAILY [facility] Last Admin: 01/22/19 12:00 Dose: 300 mg Alprazolam (Xanax -) 0.25 mg PO Q12H PRN PRN Reason: ANXIETY Last Admin: 01/21/19 22:04 Dose: 0.25 mg Aspirin (Asa -) 81 mg PO DAILY [facility] Last Admin: 01/22/19 10:03 Dose: 81 mg Atorvastatin Calcium (Lipitor -) 40 mg PO HS [facility] Last Admin: 01/21/19 22:05 Dose: 40 mg Atovaquone (Mepron -) 1,500 mg PO DAILY@1800 [facility] Last Admin: 01/21/19 17:08 Dose: 1,500 mg Clopidogrel Bisulfate (Plavix -) 75 mg PO DAILY [facility] Last Admin: 01/22/19 10:03 Dose: 75 mg Furosemide (Lasix -) 20 mg PO DAILY [facility] Last Admin: 01/22/19 10:03 Dose: 20 mg Heparin Sodium (Porcine) (Heparin -) 5,000 unit SQ BID [facility] Last Admin: 01/22/19 10:03 Dose: 5,000 unit Levothyroxine Sodium (Synthroid -) 75 mcg PO DAILY@0700 [facility] Last Admin: 01/22/19 06:28 Dose: 75 mcg Metoprolol Succinate (Toprol Xl -) 12.5 mg PO DAILY [facility] Last Admin: 01/22/19 10:03 Dose: 12.5 mg Pantoprazole Sodium (Protonix -) 40 mg PO DAILY [facility] Last Admin: 01/22/19 10:03 Dose: 40 mg - Objective Vital Signs: Vital Signs Temperature 99.4 F 01/21/19 18:23 Pulse Rate 98 H 01/22/19 14:47 Respiratory Rate 20 01/22/19 14:47 Blood Pressure 93/56 L 01/22/19 14:47 O2 Sat by Pulse Oximetry (%) 98 01/22/19 10:00 Constitutional: Yes: Calm Eyes: Yes: Conjunctiva Clear HENT: Yes: Atraumatic Neck: Yes: Supple Cardiovascular: Yes: S1, S2 Respiratory: Yes: CTA Bilaterally Gastrointestinal: Yes: Soft Genitourinary: Yes: WNL Musculoskeletal: Yes: WNL Edema: No Integumentary: Yes: WNL Neurological: Yes: Oriented Psychiatric: Yes: Oriented Labs: CBC, BMP 01/22/19 05:30 01/22/19 05:30 INR, PTT INR 1.08 (0.83-1.09) 01/15/19 18:14 Problem List - Problems (1) Dizziness Code(s): R42 - DIZZINESS AND GIDDINESS Assessment/Plan Current Medications Generic Name Dose Route Start Last Admin Trade Name Freq PRN Reason Stop Dose Admin Acetaminophen 650 mg 01/16/19 02:57 Tylenol - PO Q6H PRN PAIN LEVEL 1-5 Allopurinol 300 mg 01/16/19 10:00 01/22/19 12:00 Zyloprim - PO 300 mg DAILY [facility] Administration Alprazolam 0.25 mg 01/20/19 22:15 01/21/19 22:04 Xanax - PO 0.25 mg Q12H PRN Administration ANXIETY Aspirin 81 mg 01/16/19 10:00 01/22/19 10:03 Asa - PO 81 mg DAILY [facility] Administration Atorvastatin Calcium 40 mg 01/16/19 22:00 01/21/19 22:05 Lipitor - PO 40 mg HS [facility] Administration Atovaquone 1,500 mg 01/16/19 18:00 01/21/19 17:08 Mepron - PO 1,500 mg DAILY@1800 [facility] Administration Clopidogrel Bisulfate 75 mg 01/16/19 10:00 01/22/19 10:03 Plavix - PO 75 mg DAILY [facility] Administration Furosemide 20 mg 01/21/19 10:00 01/22/19 10:03 Lasix - PO 20 mg DAILY [facility] Administration Heparin Sodium (Porcine) 5,000 unit 01/16/19 10:00 01/22/19 10:03 Heparin - SQ 5,000 unit BID [facility] Administration Levothyroxine Sodium 75 mcg 01/22/19 07:00 01/22/19 06:28 Synthroid - PO 75 mcg DAILY@0700 [facility] Administration Metoprolol Succinate 12.5 mg 01/16/19 10:00 01/22/19 10:03 Toprol Xl - PO 12.5 mg DAILY [facility] Administration Pantoprazole Sodium 40 mg 01/16/19 10:00 01/22/19 10:03 Protonix - PO 40 mg DAILY [facility] Administration Impression 1. proteinuria 2. multiple myeloma 3. amyloid 4. dizziness 5. hypotension 6. HLD 7. hypothyroidism 8. anemia 9. CKD 10. hypercalcemia Plan - calcium is higher - heme onc follow up - monitor bp - losartan on hold - cardio input appreciated
--- NOTE | 2019-01-22 17:03 | PN ---
Progress Note (short form) - Note Progress Note: Patient seen and examined reports feeling better AFVSS Cor: RSR, No murmurs, No gallops Lungs: Clear to P&A Abd: Soft, Normal bowel sounds, No organomegaly Ext:No significant edema labs/meds reviewed a/p 73 y/o patient with myeloma/amyloid/ nephrotic syndrome/ CHF s/p drug eluting stents myeloma/amyloid -- on velcade/cytoxan/dex.stable disease. ? rev/dex will dose zometa given hypercalcemia chf s/p ricky on asa/plavix lasix as needed ckd -- stable discussed with renal team discussed with son
[2019-01-22] MEDS ORDERED: PT OWN MED DRAWER 7, Y5N ONE (17:12)
[2019-01-22] MEDS: ATOVAQUONE 750 MG/5 ML (UNIT-DOSE PACKAGING) PO SCH (17:48)
[2019-01-22] MEDS ORDERED: DEXAMETHASONE 4 MG TABLET (FP) PO ONE (19:30)
--- NOTE | 2019-01-22 21:47 | PN ---
Progress Note, Physician - Current Medication List Current Medications: Active Medications Acetaminophen (Tylenol -) 650 mg PO Q6H PRN PRN Reason: PAIN LEVEL 1-5 Allopurinol (Zyloprim -) 300 mg PO DAILY [facility] Last Admin: 01/22/19 12:00 Dose: 300 mg Alprazolam (Xanax -) 0.25 mg PO Q12H PRN PRN Reason: ANXIETY Last Admin: 01/21/19 22:04 Dose: 0.25 mg Aspirin (Asa -) 81 mg PO DAILY [facility] Last Admin: 01/22/19 10:03 Dose: 81 mg Atorvastatin Calcium (Lipitor -) 40 mg PO HS [facility] Last Admin: 01/21/19 22:05 Dose: 40 mg Atovaquone (Mepron -) 1,500 mg PO DAILY@1800 [facility] Last Admin: 01/22/19 17:48 Dose: 1,500 mg Clopidogrel Bisulfate (Plavix -) 75 mg PO DAILY [facility] Last Admin: 01/22/19 10:03 Dose: 75 mg Furosemide (Lasix -) 20 mg PO DAILY [facility] Last Admin: 01/22/19 10:03 Dose: 20 mg Heparin Sodium (Porcine) (Heparin -) 5,000 unit SQ BID [facility] Last Admin: 01/22/19 10:03 Dose: 5,000 unit Zoledronic Acid 3.5 mg/ Sodium (Chloride) 104.375 mls @ 208.75 mls/hr IVPB ONCE ONE Stop: 01/23/19 10:29 Levothyroxine Sodium (Synthroid -) 75 mcg PO DAILY@0700 [facility] Last Admin: 01/22/19 06:28 Dose: 75 mcg Metoprolol Succinate (Toprol Xl -) 12.5 mg PO DAILY [facility] Last Admin: 01/22/19 10:03 Dose: 12.5 mg Pantoprazole Sodium (Protonix -) 40 mg PO DAILY [facility] Last Admin: 01/22/19 10:03 Dose: 40 mg - Objective Vital Signs: Vital Signs Temperature 99.4 F 01/21/19 18:23 Pulse Rate 102 H 01/22/19 16:12 Respiratory Rate 20 01/22/19 16:12 Blood Pressure 100/70 01/22/19 16:12 O2 Sat by Pulse Oximetry (%) 98 01/22/19 10:00 Labs: CBC, BMP 01/22/19 05:30 01/22/19 05:30 INR, PTT INR 1.08 (0.83-1.09) 01/15/19 18:14 Problem List - Problems (1) Dizziness Code(s): R42 - DIZZINESS AND GIDDINESS (2) Anemia Code(s): D64.9 - ANEMIA, UNSPECIFIED (3) CHF (congestive heart failure) Code(s): I50.9 - HEART FAILURE, UNSPECIFIED Qualifiers: Heart failure type: systolic Heart failure chronicity: unspecified Qualified Code(s): I50.20 - Unspecified systolic (congestive) heart failure (4) CKD (chronic kidney disease) Code(s): N18.9 - CHRONIC KIDNEY DISEASE, UNSPECIFIED (5) Elevated troponin Code(s): R74.8 - ABNORMAL LEVELS OF OTHER SERUM ENZYMES (6) HTN (hypertension) Code(s): I10 - ESSENTIAL (PRIMARY) HYPERTENSION Qualifiers: Hypertension type: essential hypertension Qualified Code(s): I10 - Essential (primary) hypertension (7) Multiple myeloma Code(s): C90.00 - MULTIPLE MYELOMA NOT HAVING ACHIEVED REMISSION Qualifiers: Multiple myeloma remission status: not in remission Qualified Code(s): C90.00 - Multiple myeloma not having achieved remission (8) HLD (hyperlipidemia) Code(s): E78.5 - HYPERLIPIDEMIA, UNSPECIFIED Qualifiers: Hyperlipidemia type: unspecified Qualified Code(s): E78.5 - Hyperlipidemia , unspecified (9) Hypothyroidism Code(s): E03.9 - HYPOTHYROIDISM, UNSPECIFIED Qualifiers: Hypothyroidism type: acquired Qualified Code(s): E03.9 - Hypothyroidism, unspecified (10) CAD (coronary artery disease) Code(s): I25.10 - ATHSCL HEART DISEASE OF [place] CORONARY ARTERY W/O ANG PCTRS (11) Diarrhea Code(s): R19.7 - DIARRHEA, UNSPECIFIED Qualifiers: Diarrhea type: unspecified type Qualified Code(s): R19.7 - Diarrhea, unspecified
[2019-01-22] MEDS: ATORVASTATIN CA 40 MG TABLET (FP) PO SCH (22:25)
[2019-01-23] MEDS: LEVOTHYROXINE NA 75 MCG TABLET (FP) PO SCH (06:36)
[2019-01-23] MEDS ORDERED: ZOLEDRONIC ACID 3.5 MG in SODIUM CHLORIDE 100 ML IVPB ONE (10:00)
[2019-01-23] MEDS: PANTOPRAZOLE 40 MG TABLET (FP) PO SCH (10:09)
[2019-01-23] MEDS: CLOPIDOGREL BISULFATE 75 MG TABLET (FP) PO SCH (10:09)
[2019-01-23] MEDS: ASPIRIN 81 MG CHEWABLE TABLETS PO SCH (10:09)
[2019-01-23] MEDS: metoPROLOL SUCCINATE 25 MG TAB.SR.24H (FP) PO SCH (10:09)
[2019-01-23] MEDS: FUROSEMIDE 20 MG TABLET (FP) PO SCH (10:09)
[2019-01-23] MEDS: ALLOPURINOL 300 MG TABLET (FP) PO SCH (10:15)
--- NOTE | 2019-01-23 13:40 | PN ---
Progress Note, Physician Chief Complaint: Pt A&x3; no dizziness; +cries when thinking she may get a heart attack in the future. She wonders if there is a pill for her heart to keep this from happening , and to help the SOB that has been occurring for the past few months. History of Present Illness: 73 yo [place] woman with PMHx of multiple myeloma on chemo, amyloidosis, gi bleed, symptomatic anemia, FREDDY s/p cardiac stenting at [facility] p/w dizziness and weakness x 2 days. Patient endorses feeling weak and dizzy since . She describes the dizziness as room spinning and it happened when she's at rest. She also endorses poor PO intake but denies melena, n/v, diarrhea, chest pain. - Current Medication List Current Medications: Active Medications Acetaminophen (Tylenol -) 650 mg PO Q6H PRN PRN Reason: PAIN LEVEL 1-5 Allopurinol (Zyloprim -) 300 mg PO DAILY [facility] Last Admin: 01/23/19 10:15 Dose: 300 mg Alprazolam (Xanax -) 0.25 mg PO Q12H PRN PRN Reason: ANXIETY Last Admin: 01/21/19 22:04 Dose: 0.25 mg Aspirin (Asa -) 81 mg PO DAILY [facility] Last Admin: 01/23/19 10:09 Dose: 81 mg Atorvastatin Calcium (Lipitor -) 40 mg PO HS [facility] Last Admin: 01/22/19 22:25 Dose: 40 mg Atovaquone (Mepron -) 1,500 mg PO DAILY@1800 [facility] Last Admin: 01/22/19 17:48 Dose: 1,500 mg Clopidogrel Bisulfate (Plavix -) 75 mg PO DAILY [facility] Last Admin: 01/23/19 10:09 Dose: 75 mg Furosemide (Lasix -) 20 mg PO DAILY [facility] Last Admin: 01/23/19 10:09 Dose: 20 mg Levothyroxine Sodium (Synthroid -) 75 mcg PO DAILY@0700 [facility] Last Admin: 01/23/19 06:36 Dose: 75 mcg Metoprolol Succinate (Toprol Xl -) 12.5 mg PO DAILY [facility] Last Admin: 01/23/19 10:09 Dose: 12.5 mg Pantoprazole Sodium (Protonix -) 40 mg PO DAILY [facility] Last Admin: 01/23/19 10:09 Dose: 40 mg - Objective Vital Signs: Vital Signs Temperature 98.6 F 01/23/19 03:09 Pulse Rate 100 H 01/23/19 06:00 Respiratory Rate 20 01/23/19 06:00 Blood Pressure 105/78 01/23/19 06:00 O2 Sat by Pulse Oximetry (%) 99 01/23/19 08:32 Constitutional: Yes: Anxious Eyes: Yes: WNL HENT: Yes: WNL Neck: Yes: WNL Cardiovascular: Yes: Murmur (1/4 diastolic murmur, RSB-->base), S1, S2 Respiratory: Yes: WNL Gastrointestinal: Yes: Soft ...Rectal Exam: Yes: Deferred Genitourinary: No: Anuria Breast(s): Yes: WNL Musculoskeletal: Yes: Muscle Weakness Extremities: Yes: WNL Edema: No Peripheral Pulses WNL: Yes Integumentary: Yes: WNL Neurological: Yes: Alert, Oriented, Weakness Psychiatric: Yes: Alert, Oriented, Other (anxiety/depression) Labs: CBC, BMP 01/22/19 05:30 01/22/19 05:30 INR, PTT INR 1.08 (0.83-1.09) 01/15/19 18:14 Problem List - Problems (1) History of heart artery stent Assessment/Plan: Continue metoprolol ER, atorvastatin, ASA, Clopidogrel. Code(s): Z95.5 - PRESENCE OF CORONARY ANGIOPLASTY IMPLANT AND GRAFT (2) Dizziness Code(s): R42 - DIZZINESS AND GIDDINESS (3) Acute on chronic systolic CHF (congestive heart failure) Assessment/Plan: On metoprolol ER, furosemide (the latter was decreased to 20 mg). F/u BP, BUN/Cr, electrolytes, daily weight, Is and Os. ACEI or ARB, unless contraindications exist (pt denies allergy to anything except penicillin). Code(s): I50.23 - ACUTE ON CHRONIC SYSTOLIC (CONGESTIVE) HEART FAILURE (4) Hypotension Assessment/Plan: Furosemide decreased. Encourage PO intake. Code(s): I95.9 - HYPOTENSION, UNSPECIFIED Qualifiers: Hypotension type: unspecified hypotension type Qualified Code(s): I95.9 - Hypotension, unspecified (5) Anxiety Assessment/Plan: on benzodiazepine Pt denies depression, but cries when thinking that she "fatou never get better" from the multiple mhyeloma, and that a heart attack is inevitable. Counseling may be of benefit. Code(s): F41.9 - ANXIETY DISORDER, UNSPECIFIED (6) Hypothyroidism Assessment/Plan: elevated TSH; recent free T4 WNL. On Synthroid Code(s): E03.9 - HYPOTHYROIDISM, UNSPECIFIED Qualifiers: Hypothyroidism type: acquired Qualified Code(s): E03.9 - Hypothyroidism, unspecified (7) Elevated troponin Assessment/Plan: maximum 0.08-->now 0.06 Code(s): R74.8 - ABNORMAL LEVELS OF OTHER SERUM ENZYMES (8) Weight loss Assessment/Plan: pt says she has lost >70 lbs in the past 2 years; blames it on muliple myeloma, decrease in appetite. Now drinks Ensure, in addition to solid foods. Code(s): R63.4 - ABNORMAL WEIGHT LOSS
--- NOTE | 2019-01-23 15:15 | PN ---
Progress Note, Physician History of Present Illness: Pt seen and examined at bedside. She is awake and alert. She denies shortness of breath. - Current Medication List Current Medications: Active Medications Acetaminophen (Tylenol -) 650 mg PO Q6H PRN PRN Reason: PAIN LEVEL 1-5 Allopurinol (Zyloprim -) [address] [facility] Last Admin: 01/23/19 10:15 Dose: 300 mg Alprazolam (Xanax -) 0.25 mg PO Q12H PRN PRN Reason: ANXIETY Last Admin: 01/21/19 22:04 Dose: 0.25 mg Aspirin (Asa -) [address] [facility] Last Admin: 01/23/19 10:09 Dose: 81 mg Atorvastatin Calcium (Lipitor -) [address] [facility] Last Admin: 01/22/19 22:25 Dose: 40 mg Atovaquone (Mepron -) 1,500 mg PO DAILY@1800 [facility] Last Admin: 01/22/19 17:48 Dose: 1,500 mg Clopidogrel Bisulfate (Plavix -) [address] [facility] Last Admin: 01/23/19 10:09 Dose: 75 mg Furosemide (Lasix -) [address] [facility] Last Admin: 01/23/19 10:09 Dose: 20 mg Levothyroxine Sodium (Synthroid -) 75 mcg PO DAILY@0700 [facility] Last Admin: 01/23/19 06:36 Dose: 75 mcg Metoprolol Succinate (Toprol Xl -) 12.[address] [facility] Last Admin: 01/23/19 10:09 Dose: 12.5 mg Pantoprazole Sodium (Protonix -) [address] [facility] Last Admin: 01/23/19 10:09 Dose: 40 mg - Objective Vital Signs: Vital Signs Temperature 98.4 F 01/23/19 10:00 Pulse Rate 94 H 01/23/19 14:00 Respiratory Rate 18 01/23/19 14:00 Blood Pressure 90/76 01/23/19 14:00 O2 Sat by Pulse Oximetry (%) 99 01/23/19 08:32 Constitutional: Yes: Calm Eyes: Yes: Conjunctiva Clear HENT: Yes: Atraumatic Neck: Yes: Supple Cardiovascular: Yes: S1, S2 Respiratory: Yes: CTA Bilaterally Gastrointestinal: Yes: Soft Genitourinary: Yes: WNL Musculoskeletal: Yes: WNL Edema: No Neurological: Yes: Oriented Psychiatric: Yes: Oriented Labs: CBC, BMP 01/22/19 05:30 01/22/19 05:30 INR, PTT INR 1.08 (0.83-1.09) 01/15/19 18:14 Problem List - Problems (1) Dizziness Code(s): R42 - DIZZINESS AND GIDDINESS Assessment/Plan Current Medications Generic Name Dose Route Start Last Admin Trade Name Freq PRN Reason Stop Dose Admin Acetaminophen 650 mg 01/16/19 02:57 Tylenol - PO Q6H PRN PAIN LEVEL 1-5 Allopurinol 300 mg 01/16/19 10:00 01/23/19 10:15 Zyloprim - PO 300 mg DAILY [facility] Administration Alprazolam 0.25 mg 01/20/19 22:15 01/21/19 22:04 Xanax - PO 0.25 mg Q12H PRN Administration ANXIETY Aspirin 81 mg 01/16/19 10:00 01/23/19 10:09 Asa - PO 81 mg DAILY [facility] Administration Atorvastatin Calcium 40 mg 01/16/19 22:00 01/22/19 22:25 Lipitor - PO 40 mg HS [facility] Administration Atovaquone 1,500 mg 01/16/19 18:00 01/22/19 17:48 Mepron - PO 1,500 mg DAILY@1800 [facility] Administration Clopidogrel Bisulfate 75 mg 01/16/19 10:00 01/23/19 10:09 Plavix - PO 75 mg DAILY [facility] Administration Furosemide 20 mg 01/21/19 10:00 01/23/19 10:09 Lasix - PO 20 mg DAILY [facility] Administration Levothyroxine Sodium 75 mcg 01/22/19 07:00 01/23/19 06:36 Synthroid - PO 75 mcg DAILY@0700 [facility] Administration Metoprolol Succinate 12.5 mg 01/16/19 10:00 01/23/19 10:09 Toprol Xl - PO 12.5 mg DAILY [facility] Administration Pantoprazole Sodium 40 mg 01/16/19 10:00 01/23/19 10:09 Protonix - PO 40 mg DAILY [facility] Administration Impression 1. proteinuria 2. multiple myeloma 3. amyloid 4. dizziness 5. hypotension 6. HLD 7. hypothyroidism 8. anemia 9. CKD 10. hypercalcemia Plan - check cmp - pt was given bisphosphonate - monitor calcium - discussed with oncology yesterday - monitor bp - cont lasix at 20 mg for now
[2019-01-23] MEDS ORDERED: PT OWN MED DRAWER 7, Y5N ONE (17:13)
[2019-01-23] MEDS: ATOVAQUONE 750 MG/5 ML (UNIT-DOSE PACKAGING) PO SCH (17:27)
[2019-01-23] MEDS: ATORVASTATIN CA 40 MG TABLET (FP) PO SCH (22:13)
--- NOTE | 2019-01-23 23:37 | PN ---
Progress Note, Physician History of Present Illness: No new complaints however pt still feels weak - Current Medication List Current Medications: Active Medications Acetaminophen (Tylenol -) 650 mg PO Q6H PRN PRN Reason: PAIN LEVEL 1-5 Allopurinol (Zyloprim -) 300 mg PO DAILY [facility] Last Admin: 01/23/19 10:15 Dose: 300 mg Aspirin (Asa -) 81 mg PO DAILY [facility] Last Admin: 01/23/19 10:09 Dose: 81 mg Atorvastatin Calcium (Lipitor -) 40 mg PO HS [facility] Last Admin: 01/23/19 22:13 Dose: 40 mg Atovaquone (Mepron -) 1,500 mg PO DAILY@1800 [facility] Last Admin: 01/23/19 17:27 Dose: 1,500 mg Clopidogrel Bisulfate (Plavix -) 75 mg PO DAILY [facility] Last Admin: 01/23/19 10:09 Dose: 75 mg Furosemide (Lasix -) 20 mg PO DAILY [facility] Last Admin: 01/23/19 10:09 Dose: 20 mg Levothyroxine Sodium (Synthroid -) 75 mcg PO DAILY@0700 [facility] Last Admin: 01/23/19 06:36 Dose: 75 mcg Metoprolol Succinate (Toprol Xl -) 12.5 mg PO DAILY [facility] Last Admin: 01/23/19 10:09 Dose: 12.5 mg Pantoprazole Sodium (Protonix -) 40 mg PO DAILY [facility] Last Admin: 01/23/19 10:09 Dose: 40 mg - Objective Vital Signs: Vital Signs Temperature 98.6 F 01/23/19 18:00 Pulse Rate 90 01/23/19 18:00 Respiratory Rate 22 H 01/23/19 18:00 Blood Pressure 100/61 01/23/19 18:00 O2 Sat by Pulse Oximetry (%) 99 01/23/19 08:32 Neck: Yes: WNL, Supple Cardiovascular: Yes: WNL, Regular Rate and Rhythm Respiratory: Yes: WNL, Regular, CTA Bilaterally Gastrointestinal: Yes: WNL, Normal Bowel Sounds, Soft Edema: LLE: Trace, RLE: Trace Labs: CBC, BMP 01/22/19 05:30 01/22/19 05:30 INR, PTT INR 1.08 (0.83-1.09) 01/15/19 18:14 Problem List - Problems (1) Dizziness Assessment/Plan: Carotid doppler no significant stenosis CT scan head did not show any acute pathology ?Orthostatic hypotension Cont PT Long d/w pt and her son about dc planning Possible STR or longer hrs of care at home DC planning for am Code(s): R42 - DIZZINESS AND GIDDINESS (2) Anemia Assessment/Plan: H/H remains stable Pt has h/o rectal polyp Needs colonoscopy as outpt Code(s): D64.9 - ANEMIA, UNSPECIFIED (3) CHF (congestive heart failure) Assessment/Plan: Acute on chronic systolic/diastolic heart failure Lasix dosing as per cardio Code(s): I50.9 - HEART FAILURE, UNSPECIFIED Qualifiers: Heart failure type: systolic Heart failure chronicity: unspecified Qualified Code(s): I50.20 - Unspecified systolic (congestive) heart failure (4) CKD (chronic kidney disease) Assessment/Plan: Monitor electrolytes H/O proteinuria/multiple myeloma Code(s): N18.9 - CHRONIC KIDNEY DISEASE, UNSPECIFIED (5) Elevated troponin Assessment/Plan: Due to multiple co-morbidities Code(s): R74.8 - ABNORMAL LEVELS OF OTHER SERUM ENZYMES (6) HTN (hypertension) Assessment/Plan: BP stable Code(s): I10 - ESSENTIAL (PRIMARY) HYPERTENSION Qualifiers: Hypertension type: essential hypertension Qualified Code(s): I10 - Essential (primary) hypertension (7) Multiple myeloma Assessment/Plan: As per onco Code(s): C90.00 - MULTIPLE MYELOMA NOT HAVING ACHIEVED REMISSION Qualifiers: Multiple myeloma remission status: not in remission Qualified Code(s): C90.00 - Multiple myeloma not having achieved remission (8) HLD (hyperlipidemia) Assessment/Plan: Cont lipitor Code(s): E78.5 - HYPERLIPIDEMIA, UNSPECIFIED Qualifiers: Hyperlipidemia type: unspecified Qualified Code(s): E78.5 - Hyperlipidemia , unspecified (9) Hypothyroidism Assessment/Plan: Cont levothyroxine Code(s): E03.9 - HYPOTHYROIDISM, UNSPECIFIED Qualifiers: Hypothyroidism type: acquired Qualified Code(s): E03.9 - Hypothyroidism, unspecified (10) CAD (coronary artery disease) Assessment/Plan: Cont asa/plavix Code(s): I25.10 - ATHSCL HEART DISEASE OF [place] CORONARY ARTERY W/O ANG PCTRS (11) Diarrhea Assessment/Plan: Resolved Code(s): R19.7 - DIARRHEA, UNSPECIFIED Qualifiers: Diarrhea type: unspecified type Qualified Code(s): R19.7 - Diarrhea, unspecified
[2019-01-24] MEDS: LEVOTHYROXINE NA 75 MCG TABLET (FP) PO SCH (06:29)
[2019-01-24 06:42] LABS: HEMATOCRIT 24.4 % (32.4-45.2); HEMOGLOBIN 8.7 GM/dL (10.7-15.3); LYMPH % 11.1 % (8-40); MCH 32.7 pg (25.7-33.7); MCHC 35.5 g/dl (32.0-36.0); MEAN CELL VOLUME 92.2 fl (80-96); MEAN PLT VOLUME 9.2 fl (7.5-11.1); MONO % 7.7 % (3.8-10.2); NEUT % 81.2 % (42.8-82.8); PLATELET COUNT 142 K/MM3 (134-434); RBC 2.65 M/mm3 (3.60-5.2); RDW 19.9 % (11.6-15.6); WHITE BLOOD COUNT 8.4 K/mm3 (4.0-10.0)
[2019-01-24 06:49] LABS: ALBUMIN 1.6 g/dl (3.4-5.0); ALK PHOS 62 U/L (45-117); ANION GAP 8 MMOL/L (8-16); BILIRUBIN,TOTAL 0.2 mg/dL (0.2-1); BLOOD UREA NITROGEN 44 mg/dL (7-18); CALCIUM 10.7 mg/dL (8.5-10.1); CHLORIDE 102 mmol/L (98-107); CO2 24 mmol/L (21-32); CREATININE 0.8 mg/dL (0.55-1.3); GLUCOSE,RANDOM 111 mg/dL (74-106); SGOT/AST 12 U/L (15-37); SGPT/ALT 15 U/L (13-61); SODIUM 134 mmol/L (136-145); TOT PROT 7.8 g/dl (6.4-8.2)
--- NOTE | 2019-01-24 08:31 | PN ---
Progress Note, Physician Chief Complaint: sitting up and eating breakfast Denies CP or SOB TELE: NSR - Current Medication List Current Medications: Active Medications Acetaminophen (Tylenol -) 650 mg PO Q6H PRN PRN Reason: PAIN LEVEL 1-5 Allopurinol (Zyloprim -) 300 mg PO DAILY [facility] Last Admin: 01/23/19 10:15 Dose: 300 mg Aspirin (Asa -) 81 mg PO DAILY [facility] Last Admin: 01/23/19 10:09 Dose: 81 mg Atorvastatin Calcium (Lipitor -) 40 mg PO HS [facility] Last Admin: 01/23/19 22:13 Dose: 40 mg Atovaquone (Mepron -) 1,500 mg PO DAILY@1800 [facility] Last Admin: 01/23/19 17:27 Dose: 1,500 mg Clopidogrel Bisulfate (Plavix -) 75 mg PO DAILY [facility] Last Admin: 01/23/19 10:09 Dose: 75 mg Furosemide (Lasix -) 20 mg PO DAILY [facility] Last Admin: 01/23/19 10:09 Dose: 20 mg Levothyroxine Sodium (Synthroid -) 75 mcg PO DAILY@0700 [facility] Last Admin: 01/24/19 06:29 Dose: 75 mcg Metoprolol Succinate (Toprol Xl -) 12.5 mg PO DAILY [facility] Last Admin: 01/23/19 10:09 Dose: 12.5 mg Pantoprazole Sodium (Protonix -) 40 mg PO DAILY [facility] Last Admin: 01/23/19 10:09 Dose: 40 mg - Objective Vital Signs: Vital Signs Temperature 98 F 01/24/19 06:00 Pulse Rate 88 01/24/19 06:00 Respiratory Rate 18 01/24/19 06:00 Blood Pressure 122/72 01/24/19 06:00 O2 Sat by Pulse Oximetry (%) 99 01/23/19 22:00 Constitutional: Yes: No Distress Cardiovascular: Yes: Regular Rate and Rhythm Respiratory: Yes: CTA Bilaterally (no rales or wheezing.) Gastrointestinal: Yes: Soft Edema: No Neurological: Yes: Alert Labs: CBC, BMP 01/24/19 05:30 01/24/19 05:30 INR, PTT INR 1.08 (0.83-1.09) 01/15/19 18:14 Laboratory Tests 01/24/19 01/24/19 05:30 05:30 WBC 8.4 Hgb 8.7 L Hct 24.4 L Plt Count 142 D Sodium 134 L Potassium 4.0 BUN 44 H Creatinine 0.8 AST 12 L ALT 15 Alkaline Phosphatase 62 - ....Imaging EKG: Image Reviewed Problem List - Problems (1) Multiple myeloma Code(s): C90.00 - MULTIPLE MYELOMA NOT HAVING ACHIEVED REMISSION Qualifiers: Multiple myeloma remission status: not in remission Qualified Code(s): C90.00 - Multiple myeloma not having achieved remission (2) Dizziness Code(s): R42 - DIZZINESS AND GIDDINESS (3) ASHD (arteriosclerotic heart disease) Code(s): I25.10 - ATHSCL HEART DISEASE OF [place] CORONARY ARTERY W/O ANG PCTRS (4) Abnormal ECG Code(s): R94.31 - ABNORMAL ELECTROCARDIOGRAM [ECG] [EKG] (5) Anemia Code(s): D64.9 - ANEMIA, UNSPECIFIED Qualifiers: Chronic kidney disease stage: unspecified stage (6) CHF (congestive heart failure) Code(s): I50.9 - HEART FAILURE, UNSPECIFIED Qualifiers: Heart failure type: systolic Heart failure chronicity: unspecified Qualified Code(s): I50.20 - Unspecified systolic (congestive) heart failure (7) Elevated troponin Code(s): R74.8 - ABNORMAL LEVELS OF OTHER SERUM ENZYMES (8) PAF (paroxysmal atrial fibrillation) Code(s): I48.0 - PAROXYSMAL ATRIAL FIBRILLATION Assessment/Plan IMP: Dizziness Cardiomyopathy, mild LV systolic dysfunction CAD with recent NSTEMI s/p HOLLY D1 Multiple myeloma on chemotherapy Chronic Anemia- guaiac negative, but known rectal polyp REC: 1. Cont. low dose PO Lasix 2. Discontinued Diltiazem as should be avoided with LV dysfx and she is being treated with Toprol for CAD and chronic CHF. 3. Telemetry has been unrevealing with no arrhythmia detected. 4. Continue ASA/Plavix/Statin/ Beta savana 5. Head CT negative for mass, bleed, CVA. 6. Outpatient colonoscopy in 3 months (rectal polyp) 7. D/C planning as per PMD
[2019-01-24] MEDS: ASPIRIN 81 MG CHEWABLE TABLETS PO SCH (10:00)
[2019-01-24] MEDS: FUROSEMIDE 20 MG TABLET (FP) PO SCH (10:00)
[2019-01-24] MEDS: metoPROLOL SUCCINATE 25 MG TAB.SR.24H (FP) PO SCH (10:00)
[2019-01-24] MEDS: CLOPIDOGREL BISULFATE 75 MG TABLET (FP) PO SCH (10:04)
[2019-01-24] MEDS: PANTOPRAZOLE 40 MG TABLET (FP) PO SCH (10:04)
[2019-01-24] MEDS: ALLOPURINOL 300 MG TABLET (FP) PO SCH (10:05)
--- NOTE | 2019-01-24 11:11 | PN ---
Physical Exam: HEMATOLOGY/ONCOLOGY PROGRESS NOTE SUBJECTIVE: Patient seen and examined at bedside. States that she feels better than she did yesterday, less dizzy. OBJECTIVE: Vital Signs Period Temp Pulse Resp BP Sys/Moss Pulse Ox Last 24 Hr 98 F-98.6 F 88-94 18-23 90-122/58-76 98-99 GENERAL: A&Ox3, no acute distress EYES: PERRLA, EOMI ENT: Moist mucus membranes NECK: No JVD LUNGS: CTA, no wheezes HEART: RRR, no murmurs ABDOMEN: Soft, nontender, BS present MUSCULOSKELETAL: No CVA Tenderness EXTREMITIES: 2+ pulses, no edema. NEUROLOGICAL: Cranial nerves II-XII intact. Laboratory Results - last 24 hr 01/24/19 01/24/19 05:30 05:30 WBC 8.4 RBC 2.65 L Hgb 8.7 L Hct 24.4 L MCV 92.2 MCH 32.7 MCHC 35.5 RDW 19.9 H Plt Count 142 D MPV 9.2 Absolute Neuts (auto) 6.8 Neutrophils % 81.2 D Lymphocytes % 11.1 D Monocytes % 7.7 Eosinophils % 0.0 D Basophils % 0.0 Nucleated RBC % 0 Sodium 134 L Potassium 4.0 Chloride 102 Carbon Dioxide 24 Anion Gap 8 BUN 44 H Creatinine 0.8 Creat Clearance w eGFR 70.12 Random Glucose 111 H Calcium 10.7 H Total Bilirubin 0.2 AST 12 L ALT 15 Alkaline Phosphatase 62 Total Protein 7.8 Albumin 1.6 L Active Medications Generic Name Dose Route Start Last Admin Trade Name Freq PRN Reason Stop Dose Admin Acetaminophen 650 mg 01/16/19 02:57 Tylenol - PO Q6H PRN PAIN LEVEL 1-5 Allopurinol 300 mg 01/16/19 10:00 01/24/19 10:05 Zyloprim - PO 300 mg DAILY [facility] Administration Aspirin 81 mg 01/16/19 10:00 01/24/19 10:00 Asa - PO 81 mg DAILY [facility] Administration Atorvastatin Calcium 40 mg 01/16/19 22:00 01/23/19 22:13 Lipitor - PO 40 mg HS [facility] Administration Atovaquone 1,500 mg 01/16/19 18:00 01/23/19 17:27 Mepron - PO 1,500 mg DAILY@1800 [facility] Administration Clopidogrel Bisulfate 75 mg 01/16/19 10:00 01/24/19 10:04 Plavix - PO 75 mg DAILY [facility] Administration Furosemide 20 mg 01/21/19 10:00 01/24/19 10:00 Lasix - PO 20 mg DAILY [facility] Administration Levothyroxine Sodium 75 mcg 01/22/19 07:00 01/24/19 06:29 Synthroid - PO 75 mcg DAILY@0700 [facility] Administration Metoprolol Succinate 12.5 mg 01/16/19 10:00 01/24/19 10:00 Toprol Xl - PO 12.5 mg DAILY [facility] Administration Pantoprazole Sodium 40 mg 01/16/19 10:00 01/24/19 10:04 Protonix - PO 40 mg DAILY [facility] Administration ASSESSMENT/PLAN: 73 year old female with hx NSTEMI 12/21 w/ CHF on lasix, 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 is admitted for dizziness/weakness Multiple Myeloma: patient is on VCD (bortezomib, cyclophosphamid, dexamethasone) -likely patient can restart this medication on thursday Anemia: patient is anemic with hgb 8.7, likely 2/2 VCD therapy and myeloma -stable for now, transfuse with normal hgb goals Hypercalcemia: likely 2/2 multiple myeloma and bony destruction -dosed with zoledronic acid for hypercalcemia and multiple myeloma CHF: patient is on aspirin, plavix, atorvastatin, toprol and lasix -continue medications per primary/cardiology team Chronic kidney disease: stable, normal creatinine Aiden Ontiveros, PGY2 Discussed with Dr. Stuart Visit type - Emergency Visit Emergency Visit: No - New Patient This patient is new to me today: Yes Date on this admission: 01/24/19 - Critical Care Critical Care patient: No
--- NOTE | 2019-01-24 12:01 | PN ---
Progress Note, Physician History of Present Illness: Pt seen and examined at bedside. She is awake and alert. She denies shortness of breath. - Current Medication List Current Medications: Active Medications Acetaminophen (Tylenol -) 650 mg PO Q6H PRN PRN Reason: PAIN LEVEL 1-5 Allopurinol (Zyloprim -) 300 mg PO DAILY [facility] Last Admin: 01/24/19 10:05 Dose: 300 mg Aspirin (Asa -) 81 mg PO DAILY [facility] Last Admin: 01/24/19 10:00 Dose: 81 mg Atorvastatin Calcium (Lipitor -) 40 mg PO HS [facility] Last Admin: 01/23/19 22:13 Dose: 40 mg Atovaquone (Mepron -) 1,500 mg PO DAILY@1800 [facility] Last Admin: 01/23/19 17:27 Dose: 1,500 mg Clopidogrel Bisulfate (Plavix -) 75 mg PO DAILY [facility] Last Admin: 01/24/19 10:04 Dose: 75 mg Furosemide (Lasix -) 20 mg PO DAILY [facility] Last Admin: 01/24/19 10:00 Dose: 20 mg Levothyroxine Sodium (Synthroid -) 75 mcg PO DAILY@0700 [facility] Last Admin: 01/24/19 06:29 Dose: 75 mcg Metoprolol Succinate (Toprol Xl -) 12.5 mg PO DAILY [facility] Last Admin: 01/24/19 10:00 Dose: 12.5 mg Pantoprazole Sodium (Protonix -) 40 mg PO DAILY [facility] Last Admin: 01/24/19 10:04 Dose: 40 mg - Objective Vital Signs: Vital Signs Temperature 98 F 01/24/19 06:00 Pulse Rate 89 01/24/19 10:00 Respiratory Rate 18 01/24/19 10:00 Blood Pressure 113/70 01/24/19 10:00 O2 Sat by Pulse Oximetry (%) 99 01/23/19 22:00 Constitutional: Yes: Calm Eyes: Yes: Conjunctiva Clear HENT: Yes: Atraumatic Neck: Yes: Supple Cardiovascular: Yes: S1, S2 Respiratory: Yes: CTA Bilaterally Gastrointestinal: Yes: Soft Genitourinary: Yes: WNL Musculoskeletal: Yes: WNL Edema: No Neurological: Yes: Oriented Psychiatric: Yes: Oriented Labs: CBC, BMP 01/24/19 05:30 01/24/19 05:30 INR, PTT INR 1.08 (0.83-1.09) 01/15/19 18:14 Problem List - Problems (1) Dizziness Code(s): R42 - DIZZINESS AND GIDDINESS Assessment/Plan Current Medications Generic Name Dose Route Start Last Admin Trade Name Edgar PRN Reason Stop Dose Admin Acetaminophen 650 mg 01/16/19 02:57 Tylenol - PO Q6H PRN PAIN LEVEL 1-5 Allopurinol 300 mg 01/16/19 10:00 01/24/19 10:05 Zyloprim - PO 300 mg DAILY [facility] Administration Aspirin 81 mg 01/16/19 10:00 01/24/19 10:00 Asa - PO 81 mg DAILY [facility] Administration Atorvastatin Calcium 40 mg 01/16/19 22:00 01/23/19 22:13 Lipitor - PO 40 mg HS [facility] Administration Atovaquone 1,500 mg 01/16/19 18:00 01/23/19 17:27 Mepron - PO 1,500 mg DAILY@1800 [facility] Administration Clopidogrel Bisulfate 75 mg 01/16/19 10:00 01/24/19 10:04 Plavix - PO 75 mg DAILY [facility] Administration Furosemide 20 mg 01/21/19 10:00 01/24/19 10:00 Lasix - PO 20 mg DAILY [facility] Administration Levothyroxine Sodium 75 mcg 01/22/19 07:00 01/24/19 06:29 Synthroid - PO 75 mcg DAILY@0700 [facility] Administration Metoprolol Succinate 12.5 mg 01/16/19 10:00 01/24/19 10:00 Toprol Xl - PO 12.5 mg DAILY [facility] Administration Pantoprazole Sodium 40 mg 01/16/19 10:00 01/24/19 10:04 Protonix - PO 40 mg DAILY [facility] Administration Impression 1. proteinuria 2. multiple myeloma 3. amyloid 4. dizziness 5. hypotension 6. HLD 7. hypothyroidism 8. anemia 9. CKD 10. hypercalcemia Plan - calcium rising - will give gently fluids as she goes into failure quickly - give more lasix of she develops shortness of breath - pt was given bisphosphonate - monitor calcium - monitor bp
[2019-01-24] MEDS ORDERED: SODIUM CHLORIDE 1,000 ML IV SCH (12:15)
--- NOTE | 2019-01-24 15:07 | PN ---
Progress Note (short form) - Note Progress Note: NEUROLOGY PROGRESS: Events reviewed and discussed with staff. ENT and heme-onc consults read and appreciated. Today reporting AM "dizzy" spell, with the "whole room spinning" and resolved when she got her morning meds. Denies concurrent H/A. She did receive some IV hydration today. Also reporting "cramping" in her legs. Carotid duplex: scattered calcifications, no sig. stenosis TSH=11.2 (now on synthroid 75 mcg) H/H= (dropping) 07/28. Jpssdkovs=225n FRANCSI: BPs /60s. Cor reg. No bruit. Neck supple. NEURO: Mentation/Speech: Ox [facility]. December,. TRUMP. Poor reversal. 12/05 recall at 3. CNII-CNXII: EOM intact with full pederson appreciated. No facial. + glabella Motor: No drift. Strength normal. Reflexes brisk. B/L Babinski may be present. Coordination: No FTN dystaxia. Sensation: Normal to pinch in all 4's. Romberg - Gait: Normal stride. Pt can walk on toes and heels without difficulty. Impression: 1. Mild B/L Cerebral dysfunction ([employer] microvascular changes, chronic ; OMS may be present) 2. Orthostatic Hypotension. Anemia may be contributing 3. Vertigo Suggest: Orthostatic BP's Check ESR, CRP, Iron studies Await MRI of Brain (C-) with attention to internal auditory canals in eval of vertigo and OMS PT with walker for gait training Pt may require higher level of care (home health services) Thank you very much, Aron Hsu MD
[2019-01-24] MEDS: ATOVAQUONE 750 MG/5 ML (UNIT-DOSE PACKAGING) PO SCH (17:16)
--- NOTE | 2019-01-24 19:01 | PN ---
Progress Note (short form) - Note Progress Note: Patient seen and examined reports feeling better Last Vital Signs Temp Pulse Resp BP Pulse Ox 97.5 F L 88 16 104/70 99 01/24/19 14:00 01/24/19 14:00 01/24/19 14:00 01/24/19 14:00 01/24/19 09:00 Cor: RSR, No murmurs, No gallops Lungs: Clear to P&A Abd: Soft, Normal bowel sounds, No organomegaly Ext:No significant edema Abnormal Lab Results 01/24/19 01/24/19 05:30 05:30 RBC 2.65 L Hgb 8.7 L Hct 24.4 L RDW 19.9 H Sodium 134 L BUN 44 H Random Glucose 111 H Calcium 10.7 H AST 12 L Albumin 1.6 L Active Medications Generic Name Dose Route Start Last Admin Trade Name Freq PRN Reason Stop Dose Admin Acetaminophen 650 mg 01/16/19 02:57 Tylenol - PO Q6H PRN PAIN LEVEL 1-5 Allopurinol 300 mg 01/16/19 10:00 01/24/19 10:05 Zyloprim - PO 300 mg DAILY [facility] Administration Aspirin 81 mg 01/16/19 10:00 01/24/19 10:00 Asa - PO 81 mg DAILY [facility] Administration Atorvastatin Calcium 40 mg 01/16/19 22:00 01/23/19 22:13 Lipitor - PO 40 mg HS [facility] Administration Atovaquone 1,500 mg 01/16/19 18:00 01/24/19 17:16 Mepron - PO 1,500 mg DAILY@1800 [facility] Administration Clopidogrel Bisulfate 75 mg 01/16/19 10:00 01/24/19 10:04 Plavix - PO 75 mg DAILY [facility] Administration Furosemide 20 mg 01/21/19 10:00 01/24/19 10:00 Lasix - PO 20 mg DAILY [facility] Administration Sodium Chloride 1,000 mls @ 70 mls/hr 01/24/19 12:15 01/24/19 15:16 Normal Saline - IV 01/25/19 02:33 70 mls/hr ASDIR [facility] Administration Levothyroxine Sodium 75 mcg 01/22/19 07:00 01/24/19 06:29 Synthroid - PO 75 mcg DAILY@0700 [facility] Administration Metoprolol Succinate 12.5 mg 01/16/19 10:01/24/19 10:00 Toprol Xl - PO 12.5 mg DAILY [facility] Administration Pantoprazole Sodium 40 mg 01/16/19 10:00 01/24/19 10:04 Protonix - PO 40 mg DAILY [facility] Administration a/p 73 y/o patient with myeloma/amyloid/ nephrotic syndrome/ CHF s/p drug eluting stents myeloma/amyloid -- on velcade/cytoxan/dex.stable disease. ? switch to rev/dex s/p zometa given hypercalcemia anemia --chronic disease +/- gi losses transfuse PRBCs for hemoglobin < 8.5 chf s/p ricky on asa/plavix lasix as needed ckd -- stable
[2019-01-24] MEDS: ATORVASTATIN CA 40 MG TABLET (FP) PO SCH (21:06)
--- NOTE | 2019-01-24 22:20 | PN ---
Progress Note, Physician History of Present Illness: Pt slightly hypotensive today w/ feelings of weakness - Current Medication List Current Medications: Active Medications Acetaminophen (Tylenol -) 650 mg PO Q6H PRN PRN Reason: PAIN LEVEL 1-5 Allopurinol (Zyloprim -) 300 mg PO DAILY [facility] Last Admin: 01/24/19 10:05 Dose: 300 mg Aspirin (Asa -) 81 mg PO DAILY [facility] Last Admin: 01/24/19 10:00 Dose: 81 mg Atorvastatin Calcium (Lipitor -) 40 mg PO HS [facility] Last Admin: 01/24/19 21:06 Dose: 40 mg Atovaquone (Mepron -) 1,500 mg PO DAILY@1800 [facility] Last Admin: 01/24/19 17:16 Dose: 1,500 mg Clopidogrel Bisulfate (Plavix -) 75 mg PO DAILY [facility] Last Admin: 01/24/19 10:04 Dose: 75 mg Furosemide (Lasix -) 20 mg PO DAILY [facility] Last Admin: 01/24/19 10:00 Dose: 20 mg Sodium Chloride (Normal Saline -) 1,000 mls @ 70 mls/hr IV ASDIR [facility] Stop: 01/25/19 02:33 Last Admin: 01/24/19 15:16 Dose: 70 mls/hr Levothyroxine Sodium (Synthroid -) 75 mcg PO DAILY@0700 [facility] Last Admin: 01/24/19 06:29 Dose: 75 mcg Metoprolol Succinate (Toprol Xl -) 12.5 mg PO DAILY [facility] Last Admin: 01/24/19 10:00 Dose: 12.5 mg Pantoprazole Sodium (Protonix -) 40 mg PO DAILY [facility] Last Admin: 01/24/19 10:04 Dose: 40 mg - Objective Vital Signs: Vital Signs Temperature 97.5 F L 01/24/19 14:00 Pulse Rate 93 H 01/24/19 19:41 Respiratory Rate 16 01/24/19 14:00 Blood Pressure 88/58 L 01/24/19 19:41 O2 Sat by Pulse Oximetry (%) 99 01/24/19 09:00 Neck: Yes: WNL, Supple Cardiovascular: Yes: WNL, Regular Rate and Rhythm Respiratory: Yes: WNL, Regular, CTA Bilaterally Gastrointestinal: Yes: WNL, Normal Bowel Sounds, Soft Labs: CBC, BMP 01/24/19 05:30 01/24/19 05:30 INR, PTT INR 1.08 (0.83-1.09) 01/15/19 18:14 Problem List - Problems (1) Dizziness Assessment/Plan: Carotid doppler no significant stenosis CT scan head did not show any acute pathology ?Orthostatic hypotension Cont PT Will get MRI brain prior to DC Code(s): R42 - DIZZINESS AND GIDDINESS (2) Anemia Assessment/Plan: H/H remains stable Pt has h/o rectal polyp Needs colonoscopy as outpt Code(s): D64.9 - ANEMIA, UNSPECIFIED (3) CHF (congestive heart failure) Assessment/Plan: Acute on chronic systolic/diastolic heart failure Lasix dosing as per cardio Code(s): I50.9 - HEART FAILURE, UNSPECIFIED Qualifiers: Heart failure type: systolic Heart failure chronicity: unspecified Qualified Code(s): I50.20 - Unspecified systolic (congestive) heart failure (4) CKD (chronic kidney disease) Assessment/Plan: Monitor electrolytes H/O proteinuria/multiple myeloma Code(s): N18.9 - CHRONIC KIDNEY DISEASE, UNSPECIFIED (5) Elevated troponin Code(s): R74.8 - ABNORMAL LEVELS OF OTHER SERUM ENZYMES (6) HTN (hypertension) Assessment/Plan: Cont toprol Code(s): I10 - ESSENTIAL (PRIMARY) HYPERTENSION Qualifiers: Hypertension type: essential hypertension Qualified Code(s): I10 - Essential (primary) hypertension (7) Multiple myeloma Assessment/Plan: As per onco Code(s): C90.00 - MULTIPLE MYELOMA NOT HAVING ACHIEVED REMISSION Qualifiers: Multiple myeloma remission status: not in remission Qualified Code(s): C90.00 - Multiple myeloma not having achieved remission (8) HLD (hyperlipidemia) Assessment/Plan: Cont lipitor Code(s): E78.5 - HYPERLIPIDEMIA, UNSPECIFIED Qualifiers: Hyperlipidemia type: unspecified Qualified Code(s): E78.5 - Hyperlipidemia , unspecified (9) Hypothyroidism Assessment/Plan: Cont levothyroxine Code(s): E03.9 - HYPOTHYROIDISM, UNSPECIFIED Qualifiers: Hypothyroidism type: acquired Qualified Code(s): E03.9 - Hypothyroidism, unspecified (10) CAD (coronary artery disease) Assessment/Plan: Cont asa/plavix Code(s): I25.10 - ATHSCL HEART DISEASE OF [place] CORONARY ARTERY W/O ANG PCTRS (11) Diarrhea Assessment/Plan: Resolved Code(s): R19.7 - DIARRHEA, UNSPECIFIED Qualifiers: Diarrhea type: unspecified type Qualified Code(s): R19.7 - Diarrhea, unspecified
[2019-01-25] MEDS: LEVOTHYROXINE NA 75 MCG TABLET (FP) PO SCH (06:07)
[2019-01-25 07:18] LABS: ALBUMIN 1.6 g/dl (3.4-5.0); ALK PHOS 53 U/L (45-117); ANION GAP 9 MMOL/L (8-16); BILIRUBIN,TOTAL 0.3 mg/dL (0.2-1); BLOOD UREA NITROGEN 36 mg/dL (7-18); CALCIUM 9.5 mg/dL (8.5-10.1); CHLORIDE 106 mmol/L (98-107); CO2 24 mmol/L (21-32); CREATININE 0.8 mg/dL (0.55-1.3); GLUCOSE,RANDOM 81 mg/dL (74-106); POTASSIUM 4.2 mmol/L (3.5-5.1); SGOT/AST 13 U/L (15-37); SGPT/ALT 16 U/L (13-61); SODIUM 138 mmol/L (136-145); TOT PROT 7.6 g/dl (6.4-8.2)
--- NOTE | 2019-01-25 08:50 | PN ---
Progress Note, Physician Chief Complaint: seen and examined Eating breakfast, denies dizziness Received additional IV fluid yest Awaits brain MRI for further eval dizziness History of Present Illness: NSR on tele - Current Medication List Current Medications: Active Medications Acetaminophen (Tylenol -) 650 mg PO Q6H PRN PRN Reason: PAIN LEVEL 1-5 Allopurinol (Zyloprim -) 300 mg PO DAILY [facility] Last Admin: 01/24/19 10:05 Dose: 300 mg Aspirin (Asa -) 81 mg PO DAILY [facility] Last Admin: 01/24/19 10:00 Dose: 81 mg Atorvastatin Calcium (Lipitor -) 40 mg PO HS [facility] Last Admin: 01/24/19 21:06 Dose: 40 mg Atovaquone (Mepron -) 1,500 mg PO DAILY@1800 [facility] Last Admin: 01/24/19 17:16 Dose: 1,500 mg Clopidogrel Bisulfate (Plavix -) 75 mg PO DAILY [facility] Last Admin: 01/24/19 10:04 Dose: 75 mg Furosemide (Lasix -) 20 mg PO DAILY [facility] Last Admin: 01/24/19 10:00 Dose: 20 mg Levothyroxine Sodium (Synthroid -) 75 mcg PO DAILY@0700 [facility] Last Admin: 01/25/19 06:07 Dose: 75 mcg Metoprolol Succinate (Toprol Xl -) 12.5 mg PO DAILY [facility] Last Admin: 01/24/19 10:00 Dose: 12.5 mg Pantoprazole Sodium (Protonix -) 40 mg PO DAILY [facility] Last Admin: 01/24/19 10:04 Dose: 40 mg - Objective Vital Signs: Vital Signs Temperature 98.6 F 01/25/19 06:00 Pulse Rate 90 01/25/19 06:00 Respiratory Rate 17 01/25/19 06:00 Blood Pressure 94/55 L 01/25/19 06:00 O2 Sat by Pulse Oximetry (%) 97 01/24/19 22:00 Constitutional: Yes: No Distress, Calm Cardiovascular: Yes: Regular Rate and Rhythm Respiratory: Yes: CTA Bilaterally (no wheezing or rales) Gastrointestinal: Yes: Soft (Non tender) Edema: No Neurological: Yes: Alert, Oriented ...Motor Strength: WNL Labs: CBC, BMP 01/24/19 05:30 01/25/19 05:30 INR, PTT INR 1.08 (0.83-1.09) 01/15/19 18:14 - ....Imaging EKG: Image Reviewed Problem List - Problems (1) Multiple myeloma Code(s): C90.00 - MULTIPLE MYELOMA NOT HAVING ACHIEVED REMISSION Qualifiers: Multiple myeloma remission status: not in remission Qualified Code(s): C90.00 - Multiple myeloma not having achieved remission (2) Dizziness Code(s): R42 - DIZZINESS AND GIDDINESS (3) ASHD (arteriosclerotic heart disease) Code(s): I25.10 - ATHSCL HEART DISEASE OF [place] CORONARY ARTERY W/O ANG PCTRS (4) Abnormal ECG Code(s): R94.31 - ABNORMAL ELECTROCARDIOGRAM [ECG] [EKG] (5) Anemia Code(s): D64.9 - ANEMIA, UNSPECIFIED Qualifiers: Chronic kidney disease stage: unspecified stage (6) CHF (congestive heart failure) Code(s): I50.9 - HEART FAILURE, UNSPECIFIED Qualifiers: Heart failure type: systolic Heart failure chronicity: unspecified Qualified Code(s): I50.20 - Unspecified systolic (congestive) heart failure (7) Elevated troponin Code(s): R74.8 - ABNORMAL LEVELS OF OTHER SERUM ENZYMES (8) PAF (paroxysmal atrial fibrillation) Code(s): I48.0 - PAROXYSMAL ATRIAL FIBRILLATION Assessment/Plan IMP: Dizziness, suspected Vertigo Cardiomyopathy, mild LV systolic dysfunction CAD with recent NSTEMI s/p HOLLY D1 Multiple myeloma on chemotherapy Chronic Anemia- guaiac negative, but known rectal polyp *Baseline blood pressure is 90-100mmHg systolic chronically REC: 1. Cont. low dose PO Lasix 2. Discontinued Diltiazem as should be avoided with LV dysfx and she is being treated with Toprol for CAD and chronic CHF. 3. Telemetry has been unrevealing with no arrhythmia detected. 4. Continue ASA/Plavix/Statin/ Beta savana 5. Head CT negative for mass, bleed, CVA. MRI brain now planned for today. 6. Outpatient colonoscopy in 3 months (rectal polyp)
[2019-01-25] MEDS: CLOPIDOGREL BISULFATE 75 MG TABLET (FP) PO SCH (09:56)
[2019-01-25] MEDS: PANTOPRAZOLE 40 MG TABLET (FP) PO SCH (09:56)
[2019-01-25] MEDS: FUROSEMIDE 20 MG TABLET (FP) PO SCH (09:56)
[2019-01-25] MEDS: ALLOPURINOL 300 MG TABLET (FP) PO SCH (09:56)
[2019-01-25] MEDS: ASPIRIN 81 MG CHEWABLE TABLETS PO SCH (09:56)
--- NOTE | 2019-01-25 11:23 | PN ---
Physical Exam: SUBJECTIVE: Patient seen and examined at bedside. No complaints. Not dizzy. OBJECTIVE: Vital Signs Period Temp Pulse Resp BP Sys/Moss Pulse Ox Last 24 Hr 97.5 F-98.9 F 86-94 16-20 88-110/55-70 97-97 GENERAL: A&Ox3, no acute distress EYES: PERRLA, EOMI ENT: Moist mucus membranes NECK: No JVD LUNGS: CTA, no wheezes HEART: RRR, no murmurs ABDOMEN: Soft, nontender, BS present MUSCULOSKELETAL: No CVA Tenderness EXTREMITIES: 2+ pulses, no edema. NEUROLOGICAL: Cranial nerves II-XII intact. Laboratory Results - last 24 hr 01/24/19 01/25/19 01/25/19 17:20 05:30 05:30 ESR 118 H Sodium 138 Potassium 4.2 Chloride 106 Carbon Dioxide 24 Anion Gap 9 BUN 36 H Creatinine 0.8 Creat Clearance w eGFR 70.12 Random Glucose 81 Calcium 9.5 Total Bilirubin 0.3 AST 13 L ALT 16 Alkaline Phosphatase 53 C-Reactive Protein < 0.3 Total Protein 7.6 Albumin 1.6 L Active Medications Generic Name Dose Route Start Last Admin Trade Name Freq PRN Reason Stop Dose Admin Acetaminophen 650 mg 01/16/19 02:57 Tylenol - PO Q6H PRN PAIN LEVEL 1-5 Allopurinol 300 mg 01/16/19 10:00 01/25/19 09:56 Zyloprim - PO 300 mg DAILY PABL[facility]O Administration Aspirin 81 mg 01/16/19 10:00 01/25/19 09:56 Asa - PO 81 mg DAILY P[facility]O Administration Atorvastatin Calcium 40 mg 01/16/19 22:00 01/24/19 21:06 Lipitor - PO 40 mg HS PABLITO Administration Atovaquone 1,500 mg 01/16/19 18:00 01/24/19 17:16 Mepron - PO 1,500 mg DAILY@1800 [facility] Administration Clopidogrel Bisulfate 75 mg 01/16/19 10:00 01/25/19 09:56 Plavix - PO 75 mg DAILY [facility]O Administration Furosemide 20 mg 01/21/19 10:00 01/25/19 09:56 Lasix - PO 20 mg DAILY P[facility]O Administration Levothyroxine Sodium 75 mcg 01/22/19 07:00 01/25/19 06:07 Synthroid - PO 75 mcg DAILY@0700 [facility] Administration Metoprolol Succinate 12.5 mg 01/16/19 10:00 01/24/19 10:00 Toprol Xl - PO 12.5 mg DAILY P[facility]O Administration Pantoprazole Sodium 40 mg 01/16/19 10:00 01/25/19 09:56 Protonix - PO 40 mg DAILY [facility] Administration CBC, BMP 01/24/19 05:30 01/25/19 05:30 Current Medications Acetaminophen (Tylenol -) 650 mg PO Q6H PRN PRN Reason: PAIN LEVEL 1-5 Allopurinol (Zyloprim -) 300 mg PO DAILY [facility] Last Admin: 01/25/19 09:56 Dose: 300 mg Aspirin (Asa -) 81 mg PO DAILY [facility] Last Admin: 01/25/19 09:56 Dose: 81 mg Atorvastatin Calcium (Lipitor -) 40 mg PO HS [facility] Last Admin: 01/24/19 21:06 Dose: 40 mg Atovaquone (Mepron -) 1,500 mg PO DAILY@1800 [facility] Last Admin: 01/24/19 17:16 Dose: 1,500 mg Clopidogrel Bisulfate (Plavix -) 75 mg PO DAILY [facility] Last Admin: 01/25/19 09:56 Dose: 75 mg Furosemide (Lasix -) 20 mg PO DAILY [facility] Last Admin: 01/25/19 09:56 Dose: 20 mg Levothyroxine Sodium (Synthroid -) 75 mcg PO DAILY@0700 [facility] Last Admin: 01/25/19 06:07 Dose: 75 mcg Metoprolol Succinate (Toprol Xl -) 12.5 mg PO DAILY [facility] Last Admin: 01/24/19 10:00 Dose: 12.5 mg Pantoprazole Sodium (Protonix -) 40 mg PO DAILY [facility] Last Admin: 01/25/19 09:56 Dose: 40 mg ASSESSMENT/PLAN: DRAFT 73 year old female with hx NSTEMI 12/21 w/ CHF on lasix, 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 is admitted for dizziness/weakness Multiple Myeloma: patient is on VCD at home (bortezomib, cyclophosphamid, dexamethasone) -likely patient can restart this medication on thursday -considering to switch to lenalinamide/dexamethasone as outpatient Anemia: patient is anemic with stable hgb -stable for now, transfuse with normal hgb goals Hypercalcemia: likely 2/2 multiple myeloma and bony destruction -dosed with zoledronic acid for hypercalcemia and multiple myeloma -renal following CHF: patient is on aspirin, plavix, atorvastatin, toprol and lasix -continue medications per primary/cardiology team Chronic kidney disease: stable, normal creatinine Aiden Ontiveros, PGY2 Visit type - Emergency Visit Emergency Visit: No - New Patient This patient is new to me today: No - Critical Care Critical Care patient: No
[2019-01-25] MEDS: metoPROLOL SUCCINATE 25 MG TAB.SR.24H (FP) PO SCH (11:26)
--- NOTE | 2019-01-25 12:20 | PN ---
Progress Note, Physician History of Present Illness: Pt seen and examined at bedside. She is awake and alert. She denies shortness of breath. - Current Medication List Current Medications: Active Medications Acetaminophen (Tylenol -) 650 mg PO Q6H PRN PRN Reason: PAIN LEVEL 1-5 Allopurinol (Zyloprim -) 300 mg PO DAILY [facility] Last Admin: 01/25/19 09:56 Dose: 300 mg Aspirin (Asa -) 81 mg PO DAILY [facility] Last Admin: 01/25/19 09:56 Dose: 81 mg Atorvastatin Calcium (Lipitor -) 40 mg PO HS [facility] Last Admin: 01/24/19 21:06 Dose: 40 mg Atovaquone (Mepron -) 1,500 mg PO DAILY@1800 [facility] Last Admin: 01/24/19 17:16 Dose: 1,500 mg Clopidogrel Bisulfate (Plavix -) 75 mg PO DAILY [facility] Last Admin: 01/25/19 09:56 Dose: 75 mg Furosemide (Lasix -) 20 mg PO DAILY [facility] Last Admin: 01/25/19 09:56 Dose: 20 mg Levothyroxine Sodium (Synthroid -) 75 mcg PO DAILY@0700 [facility] Last Admin: 01/25/19 06:07 Dose: 75 mcg Metoprolol Succinate (Toprol Xl -) 12.5 mg PO DAILY [facility] Last Admin: 01/25/19 11:26 Dose: 12.5 mg Pantoprazole Sodium (Protonix -) 40 mg PO DAILY [facility] Last Admin: 01/25/19 09:56 Dose: 40 mg - Objective Vital Signs: Vital Signs Temperature 98.6 F 01/25/19 06:00 Pulse Rate 90 01/25/19 06:00 Respiratory Rate 17 01/25/19 06:00 Blood Pressure 94/55 L 01/25/19 06:00 O2 Sat by Pulse Oximetry (%) 97 01/24/19 22:00 Constitutional: Yes: Calm Eyes: Yes: Conjunctiva Clear HENT: Yes: Atraumatic Neck: Yes: Supple Cardiovascular: Yes: S1, S2 Respiratory: Yes: CTA Bilaterally Gastrointestinal: Yes: Soft Genitourinary: Yes: WNL Musculoskeletal: Yes: WNL Edema: No Neurological: Yes: Oriented Psychiatric: Yes: Oriented Labs: CBC, BMP 01/24/19 05:30 01/25/19 05:30 INR, PTT INR 1.08 (0.83-1.09) 01/15/19 18:14 Problem List - Problems (1) Dizziness Code(s): R42 - DIZZINESS AND GIDDINESS Assessment/Plan Current Medications Generic Name Dose Route Start Last Admin Trade Name Edgar PRN Reason Stop Dose Admin Acetaminophen 650 mg 01/16/19 02:57 Tylenol - PO Q6H PRN PAIN LEVEL 1-5 Allopurinol 300 mg 01/16/19 10:00 01/25/19 09:56 Zyloprim - PO 300 mg DAILY [facility] Administration Aspirin 81 mg 01/16/19 10:00 01/25/19 09:56 Asa - PO 81 mg DAILY [facility] Administration Atorvastatin Calcium 40 mg 01/16/19 22:00 01/24/19 21:06 Lipitor - PO 40 mg HS [facility] Administration Atovaquone 1,500 mg 01/16/19 18:00 01/24/19 17:16 Mepron - PO 1,500 mg DAILY@1800 [facility] Administration Clopidogrel Bisulfate 75 mg 01/16/19 10:00 01/25/19 09:56 Plavix - PO 75 mg DAILY [facility] Administration Furosemide 20 mg 01/21/19 10:00 01/25/19 09:56 Lasix - PO 20 mg DAILY [facility] Administration Levothyroxine Sodium 75 mcg 01/22/19 07:00 01/25/19 06:07 Synthroid - PO 75 mcg DAILY@0700 [facility] Administration Metoprolol Succinate 12.5 mg 01/16/19 10:00 01/25/19 11:26 Toprol Xl - PO 12.5 mg DAILY [facility] Administration Pantoprazole Sodium 40 mg 01/16/19 10:00 01/25/19 09:56 Protonix - PO 40 mg DAILY [facility] Administration Impression 1. proteinuria 2. multiple myeloma 3. amyloid 4. dizziness 5. hypotension 6. HLD 7. hypothyroidism 8. anemia 9. CKD 10. hypercalcemia Plan - calcium is improving - cont PO lasix - pt was given bisphosphonate - monitor calcium - monitor bp
[2019-01-25 12:56] VITALS: BP 98/59; PULSE 81; TEMP 98.4
[2019-01-26 04:12] LABS: SERUM IRON SATURATION 28 % (15-55); TOTAL IRON BINDING CAPACITY 173 ug/dL (250-450); UIBC 124 ug/dL (118-369)
== END 2019-01-25 13:00 | disposition home health service (06) | DRG 315 ==
LOC: JER 17:40 → JERBED 21:35 → J2W 01-16 14:17
PROVIDERS: ADMIT Internal Medicine; ATTEND Internal Medicine
DX: I42.9 Cardiomyopathy, unspecified (principal); C90.00 Multiple myeloma not having achieved remission; D61.818 Other pancytopenia; I13.0 Hypertensive heart and chronic kidney disease with heart failure and stage 1 through stage 4 chronic kidney disease, or unspecified chronic kidney disease; I50.22 Chronic systolic (congestive) heart failure; I95.1 Orthostatic hypotension; R42 Dizziness and giddiness; I25.10 Atherosclerotic heart disease of native coronary artery without angina pectoris; R74.8 Abnormal levels of other serum enzymes; I48.0 Paroxysmal atrial fibrillation; D64.81 Anemia due to antineoplastic chemotherapy; E83.52 Hypercalcemia; E03.9 Hypothyroidism, unspecified; N18.9 Chronic kidney disease, unspecified; E78.5 Hyperlipidemia, unspecified; Z98.61 Coronary angioplasty status
CPT/HCPCS: 36415; 70450-TC; 71045-TC-FY; 71275-TC; 80053; 81003; 81015; 82550; 82570; 82607; 82962; 83540; 83550; 83880; 84156; 84443; 84484; 85025; 85610; 85651; 86140; 86593; 86850; 86900; 86901; 93005; 93010; 93306-TC; 93880-TC; 97116-GP; 97161-GP; 99285-25; J0131; J1644; J3489; J7030

== ENCOUNTER 2019-01-26 07:09 | Day surgery (SDC) | payer OTHER ==
[2019-01-26 09:13] VITALS: TEMP 98.8
[2019-01-26] MEDS ORDERED: DEXAMETHASONE 4 MG TABLET (FP) PO ONE (10:00)
[2019-01-26] MEDS ORDERED: CYCLOPHOSPHAMIDE 50 MG CAPSULE PO ONE (10:00)
[2019-01-26] MEDS ORDERED: ONDANSETRON INJECTION 8 MG in SODIUM CHLORIDE 50 ML IVPB ONE (10:00)
[2019-01-26 10:14] LABS: ALBUMIN 1.8 g/dl (3.4-5.0); BILIRUBIN,DIRECT 0.1 mg/dL (0.0-0.2); BILIRUBIN,TOTAL 0.4 mg/dL (0.2-1); MAGNESIUM 2.2 mg/dL (1.8-2.4); TOT PROT 8.4 g/dl (6.4-8.2)
[2019-01-26 10:15] LABS: ALBUMIN 1.8 g/dl (3.4-5.0); ALK PHOS 57 U/L (45-117); ANION GAP 10 MMOL/L (8-16); BILIRUBIN,TOTAL 0.3 mg/dL (0.2-1); BLOOD UREA NITROGEN 26 mg/dL (7-18); CALCIUM 9.5 mg/dL (8.5-10.1); CHLORIDE 106 mmol/L (98-107); CO2 24 mmol/L (21-32); CREATININE 0.8 mg/dL (0.55-1.3); GLUCOSE,RANDOM 98 mg/dL (74-106); POTASSIUM 3.7 mmol/L (3.5-5.1); SGOT/AST 16 U/L (15-37); SGPT/ALT 17 U/L (13-61); SODIUM 139 mmol/L (136-145); TOT PROT 8.3 g/dl (6.4-8.2)
[2019-01-26 10:25] LABS: BASO % 0.4 % (0-2.0); EOS % 0.4 % (0-4.5); HEMATOCRIT 27.1 % (32.4-45.2); LYMPH % 23.2 % (8-40); MCHC 33.3 g/dl (32.0-36.0); MEAN CELL VOLUME 93.1 fl (80-96); MEAN PLT VOLUME 8.3 fl (7.5-11.1); MONO % 10.8 % (3.8-10.2); NEUT % 65.2 % (42.8-82.8); PLATELET COUNT 167 K/MM3 (134-434); RBC 2.91 M/mm3 (3.60-5.2); RDW 19.9 % (11.6-15.6); WHITE BLOOD COUNT 5.5 K/mm3 (4.0-10.0)
[2019-01-26] MEDS ORDERED: BORTEZOMIB (VELCADE) 2.5 MG/ML SUB-Q INJECTION SQ ONE (10:30)
[2019-01-26] MEDS ORDERED: ONDANSETRON 4 MG TABLET PO ONE (11:00)
[2019-01-26 14:33] VITALS: BP 99/49; PULSE 96
== END 2019-01-26 11:35 | disposition home or self-care (01) ==
LOC: JONCCHEMO 07:09 → J7W 10:43 → JONCCHEMO 11:35
PROVIDERS: ATTEND Internal Medicine Hematology & Oncology
DX: Z51.11 Encounter for antineoplastic chemotherapy (principal); C90.00 Multiple myeloma not having achieved remission
CPT/HCPCS: 36415; 80053; 80076; 83735; 85025; 96401; J9041

== ENCOUNTER 2019-01-28 18:50 | Inpatient (IN) | payer OTHER ==
--- NOTE | 2019-01-28 19:29 | PDOC ---
History of Present Illness - General Chief Complaint: Chest Pain Stated Complaint: CHEST PAIN Time Seen by Provider: 01/28/19 19:16 - History of Present Illness Initial Comments: The pt is a 73F w/ a history of CAD s/p HOLLY stent (plavix), CHF (EF 45%), multiple myeloma who presents for evaluation of 1 day of substernal, non- radiating, chest pressure that is non-exertional and assciated with shortness of breath and 1-2 days of worsening BLE swelling. Pt reports pain started while at rest and has been constant. Pt reports taking her medications as prescribed. Denies fevers/chills, QUINTEROS, vision changes, N/V/C/D, dysuria, hematuria, abdominal pain, or blood in her stool 01/28/19 19:42 Past History - Past Medical History Allergies/Adverse Reactions: Allergies Allergy/AdvReac Type Severity Reaction Status Date / Time Penicillins Allergy Severe Rash Verified 01/15/19 17:46 Home Medications: Ambulatory Orders [place]-3/Dha/Epa/Fish Oil [[place] 3 500 Softgel] 1 each PO DAILY 10/11/18 Allopurinol [Zyloprim -] 300 mg PO DAILY #30 tablet 11/09/18 Pantoprazole Sodium [Protonix -] 40 mg PO DAILY #30 tablet.ec 11/09/18 Aspirin [ASA -] 81 mg PO DAILY 12/30/18 Acetaminophen [Tylenol .Regular Strength -] 650 mg PO Q6H PRN #100 tablet Albuterol 2.5/Ipratropium 0.5 [Duoneb -] 1 amp NEB Q6H PRN #30 amp 01/07/19 Clopidogrel Bisulfate [Plavix -] 75 mg PO DAILY #30 tablet 01/07/19 Metoprolol Succinate [Toprol XL -] 12.5 mg PO DAILY #30 tab.sr.24h 01/07/19 Valacyclovir HCl [Valtrex -] 500 mg PO DAILY #30 tablet 01/07/19 Furosemide [Lasix -] 40 mg PO DAILY 01/28/19 Levothyroxine [Synthroid -] 50 mcg PO DAILY@0700 01/28/19 Losartan Potassium [Cozaar -] 25 mg PO DAILY 01/28/19 Potassium Chloride [K-Dur -] 10 meq PO DAILY 01/28/19 Prochlorperazine Maleate [Compazine] 10 mg PO Q6H PRN 01/28/19 Anemia: Yes Asthma: Yes Cancer: Yes (myeloma) Cardiac Disorders: Yes (NSTEMI STENT x 1) CVA: No COPD: No CHF: Yes Dementia: No Diabetes: No GI Disorders: Yes (HIATAL HERNIA REPAIR) Disorders: No HTN: Yes Hypercholesterolemia: Yes Liver Disease: Yes (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) Seizures: No Thyroid Disease: Yes (Hypothyroidism ) - Surgical History Abdominal Surgery: Yes Appendectomy: No Cardiac Surgery: Yes (stent placement) Cholecystectomy: No Lung Surgery: No Neurologic Surgery: No Orthopedic Surgery: Yes (carpal tunnel ) - Immunization History Immunization Up to Date: Yes - Suicide/Smoking/Psychosocial Hx Smoking History: Never smoked Have you smoked in the past 12 months: No Number of Cigarettes Smoked Daily: 5 If you are a former smoker, when did you quit?: 1988 Cigars Per Day: 0 Hx Alcohol Use: No Drug/Substance Use Hx: No Substance Use Type: None Hx Substance Use Treatment: No Review of Systems - Review of Systems Able to Perform ROS?: Yes Comments:: GENERAL/CONSTITUTIONAL: No fever or chills. No weakness HEAD, EYES, EARS, NOSE AND THROAT: No change in vision. No ear pain or discharge. No sore throat RESPIRATORY: Denies cough, hemoptysis GASTROINTESTINAL: No nausea, vomiting, diarrhea or constipation GENITOURINARY: No dysuria, frequency, or change in urination MUSCULOSKELETAL: No joint or muscle swelling or pain. No neck or back pain SKIN: No rash NEUROLOGIC: No headache, vertigo, loss of consciousness, or change in strength/ sensation ENDOCRINE: No increased thirst. No abnormal weight change HEMATOLOGIC/LYMPHATIC: No anemia, easy bleeding, or history of blood clots ALLERGIC/IMMUNOLOGIC: No hives or skin allergy 01/28/19 19:46 Is the patient limited Uzbek proficient: No *Physical Exam - Vital Signs Last Vital Signs Temp Pulse Resp BP Pulse Ox 98.9 F 116 H 20 150/90 98 01/28/19 18:57 01/28/19 18:57 01/28/19 18:57 01/28/19 18:57 01/28/19 18:57 - Physical Exam Comments: GENERAL: Awake, alert, and oriented to person/place/time, in no acute distress HEAD: No signs of trauma, normocephalic, atraumatic EYES: PERRLA, EOMI, sclera anicteric, conjunctiva clear ENT: Hearing grossly normal, nares patent, oropharynx clear without exudates. Moist mucosa LUNGS: Speaks full sentences, clear to auscultation bilaterally HEART: Tachycardic w/ regular rhythm, normal S1 and S2, no murmurs appreciated, peripheral pulses normal and equal bilaterally ABDOMEN: Soft, nontender, normoactive bowel sounds. No guarding, no rebound EXTREMITIES: Normal inspection, Normal range of motion. BLE pitting edema to ankle NEUROLOGICAL: Cranial nerves II through XII grossly intact. Normal speech, normal gait, no focal sensorimotor deficits SKIN: Warm, Dry 01/28/19 19:47 ED Treatment Course - LABORATORY CBC & Chemistry Diagram: 01/28/19 19:55 01/28/19 20:50 - RADIOLOGY Radiology Studies Ordered: Category Date Time Status CHEST X-RAY PORTABLE* [RAD] Stat Radiology 01/28/19 19:26 Ordered Medical Decision Making - Medical Decision Making The pt is a 73F w/ a history of HTN, CHF, CAD s/p stent, and multiple myeloma who presents w/ one day of chest pain and SOB. ED Course CMP, CBC, Trop I, BNP ECG CXR 01/28/19 19:48 Mild hypokalemia to 3.3 Trop I 0.07, will trend and pt took plavix today BNP elevated to 7055 Anemia to 8.8, no indication for transfusion at this time No leukocytosis Plan for admission to Tele Obs Case discussed w/ Dr. Puckett 01/28/19 22:29 *DC/Admit/Observation/Transfer Diagnosis at time of Disposition: Chest pain Qualifiers: Chest pain type: unspecified Qualified Code(s): R07.9 - Chest pain, unspecified HTN (hypertension) Qualifiers: Hypertension type: unspecified Qualified Code(s): I10 - Essential (primary) hypertension Multiple myeloma Qualifiers: Multiple myeloma remission status: unspecified Qualified Code(s): C90.00 - Multiple myeloma not having achieved remission CAD (coronary artery disease) Qualifiers: Coronary Disease-Associated Artery/Lesion type: unspecified vessel or lesion type [place] vs. transplanted heart: unspecified whether [place] or transplanted heart Associated angina: with unspecified angina Qualified Code(s): I25.119 - Atherosclerotic heart disease of [place] coronary artery with unspecified angina pectoris - Referrals Referrals: Paulette Puckett MD [Primary Care Provider] - - Patient Instructions - Post Discharge Activity
--- NOTE | 2019-01-28 19:31 | PDOC ---
Attending Attestation - HPI HPI: 01/28/19 19:33 The patient is a 73 year old female, with a significant past medical history of CAD s/p stent, HTN, HLD, multiple myeloma, who returns to the emergency department after recent discharge from this hospital on 01/25/19 for evaluation of nonexertional chest pressure and shortness of breath with one day of associated lower extremity swelling. She denies pain to her extremities. The patient denies headache and dizziness. The patient denies fever, chills, nausea, vomit, diarrhea and constipation. The patient denies dysuria, frequency , urgency and hematuria. Allergies: Penicillins PCP: Dr. Puckett - Physicial Exam PE: 01/28/19 20:52 ROS: A complete review of 10 out of 10 review of systems is taken and is negative apart from what is previously mentioned below and in the HPI. Vitals: Triage vital signs reviewed General Appearance: No acute distress, well nourished, well developed Head: Atraumatic Eyes: Pupils equal reactive round, extraocular movement intact Neck: Supple; No nuchal rigidity Chest Wall: Nontender Cardiac: Regular rate and rhythm, no murmurs, no rubs, no gallops Lungs: Clear to auscultation bilateral, good air movement bilaterally Abdomen: Soft, nondistended, normal bowel sounds, nontender to palpation Extremities: Full range of motion to all extremities, no cyanosis, clubbing, or edema Skin: Warm and dry, no rashes or lesions, no rash, no petechiae Neuro: AOX3; Cranial Nerves 2-12 grossly intact, Strength intact to all extremities, Sensation intact to all extremities, Psych: Normal mood, normal affect - Medical Decision Making 01/28/19 22:02 Dr. Puckett paged at this time. awaiting call back <Sil Millan - Last Filed: 01/28/19 22:02> - Resident Resident Name: Keanu Abarca - ED Attending Attestation I have performed the following: I have examined & evaluated the patient, The case was reviewed & discussed with the resident, I agree w/resident's findings & plan, Exceptions are as noted - Medical Decision Making 73 years old with multiple comorbidities presents to the ED with chest pressure shortness of breath History of similar EKG with ST depressions septally and laterally when compared to previous unchanged Given heart score of 6 we'll observe on telemetry for further management. Full dose ASA given <Donald Denise - Last Filed: 01/29/19 01:28> Heart Score/ECG Review - History History: Slightly suspicious - Electrocardiogram EKG: Non specific repolarization disturbance - Age Age: >/= 65 - Risk Factors Risk Factors Heart Score: Yes Hx Hypercholesterolemia, Yes Hx Hypertension, Yes Hx Diabetes Based on the list above the patient has:: >/=3 risk factors or Hx atherosclerotic disease - Troponin Troponin: 1-3x normal limit - Score Heart Score - Total: 6 <Donald Denise - Last Filed: 01/29/19 01:28> Attestations - Attestations 01/28/19 19:33 Documentation prepared by Sil Millan, acting as medical assembly for Donald Denise MD, <Sil Millan - Last Filed: 01/28/19 22:02>
[2019-01-28 20:24] LABS: HEMOGLOBIN 8.8 GM/dL (10.7-15.3); MCH 30.4 pg (25.7-33.7); MCHC 32.7 g/dl (32.0-36.0); MEAN CELL VOLUME 92.9 fl (80-96); MEAN PLT VOLUME 8.4 fl (7.5-11.1); PLATELET COUNT 179 K/MM3 (134-434); RBC 2.91 M/mm3 (3.60-5.2); RDW 20.3 % (11.6-15.6); WHITE BLOOD COUNT 4.5 K/mm3 (4.0-10.0)
[2019-01-28 20:53] LABS: INR 1.03 (0.83-1.09); PROTHROMBIN TIME (PATIENT) 12.2 SEC (9.7-13.0)
[2019-01-28 21:38] LABS: ALBUMIN 1.8 g/dl (3.4-5.0); ALK PHOS 57 U/L (45-117); ANION GAP 11 MMOL/L (8-16); BILIRUBIN,TOTAL 0.4 mg/dL (0.2-1); BLOOD UREA NITROGEN 34 mg/dL (7-18); CALCIUM 8.7 mg/dL (8.5-10.1); CHLORIDE 107 mmol/L (98-107); CO2 22 mmol/L (21-32); CREATININE 1.3 mg/dL (0.55-1.3); GLUCOSE,RANDOM 96 mg/dL (74-106); POTASSIUM 3.3 mmol/L (3.5-5.1); SGOT/AST 14 U/L (15-37); SGPT/ALT 17 U/L (13-61); SODIUM 140 mmol/L (136-145)
[2019-01-28] MEDS ORDERED: ACETAMINOPHEN 325 MG TABLET (FP) PO ONE (21:57)
[2019-01-28] MEDS ORDERED: ACETAMINOPHEN 325 MG TABLET (FP) ONE (21:59)
[2019-01-28] MEDS ORDERED: ASPIRIN 325 MG TABLET PO ONE (22:36)
[2019-01-28] MEDS ORDERED: ASPIRIN 325 MG TABLET ONE (23:15)
[2019-01-28] MEDS ORDERED: PROCHLORPERAZINE MALEATE 5 MG TABLET PO PRN (23:59)
[2019-01-28] MEDS ORDERED: ALBUTEROL SO4 2.5/IPRATROPIUM 0.5 INH SOL 3 ML VIAL.NEB. NEB PRN (23:59)
[2019-01-29 06:17] LABS: BASO % 0.6 % (0-2.0); EOS % 0.6 % (0-4.5); HEMATOCRIT 23.9 % (32.4-45.2); HEMOGLOBIN 7.7 GM/dL (10.7-15.3); LYMPH % 29.3 % (8-40); MCH 29.9 pg (25.7-33.7); MCHC 32.4 g/dl (32.0-36.0); MEAN CELL VOLUME 92.5 fl (80-96); MEAN PLT VOLUME 8.2 fl (7.5-11.1); MONO % 15.9 % (3.8-10.2); NEUT % 53.6 % (42.8-82.8); PLATELET COUNT 166 K/MM3 (134-434); RBC 2.58 M/mm3 (3.60-5.2); RDW 20.4 % (11.6-15.6); WHITE BLOOD COUNT 4.2 K/mm3 (4.0-10.0)
[2019-01-29 07:09] LABS: ALBUMIN 1.6 g/dl (3.4-5.0); ALK PHOS 49 U/L (45-117); ANION GAP 10 MMOL/L (8-16); BILIRUBIN,TOTAL 0.4 mg/dL (0.2-1); BLOOD UREA NITROGEN 28 mg/dL (7-18); CALCIUM 8.2 mg/dL (8.5-10.1); CHLORIDE 110 mmol/L (98-107); CO2 22 mmol/L (21-32); CREATININE 1.3 mg/dL (0.55-1.3); GLUCOSE,RANDOM 82 mg/dL (74-106); POTASSIUM 3.2 mmol/L (3.5-5.1); SGOT/AST 11 U/L (15-37); SGPT/ALT 14 U/L (13-61); SODIUM 142 mmol/L (136-145); TOT PROT 7.6 g/dl (6.4-8.2)
[2019-01-29] MEDS: LEVOTHYROXINE NA 50 MCG TABLET (FP) PO SCH (07:36)
[2019-01-29] MEDS ORDERED: LEVOTHYROXINE NA 25 MCG TABLET (FP) ONE (07:36)
--- NOTE | 2019-01-29 08:18 | CON.CARD ---
Consult - History of Present Illness History of Present Illness: The patient is a 73 year old female, with a significant past medical history of CAD s/p stent, HTN, HLD, multiple myeloma, who returns to the emergency department after recent discharge from this hospital on 01/25/19 for evaluation of nonexertional chest pressure and shortness of breath with one day of associated lower extremity swelling. She denies pain to her extremities. The patient denies headache and dizziness. The patient denies fever, chills, nausea, vomit, diarrhea and constipation. The patient denies dysuria, frequency , urgency and hematuria. Allergies: Penicillins PCP: Dr. Puckett - Past Medical History Cardio/Vascular: Yes: CAD (s/p HOLLY D1 this month after NSTEMI), CHF (Chronic systolic CHF, mildly reduced LV function with EF 45%), HTN, Hyperlipdemia Pulmonary: Yes: Asthma Gastrointestinal: Yes: Other (hiatal hernia; rectal polyp) Renal/: Yes: Renal Inusuff, Other (proteinuria) Psych: Yes: Depression Endocrine: Yes: Hypothyroidism - Past Surgical History Past Surgical History: Yes: Breast Biopsy (right for cysts), Hernia Repair ( laparoscopic hiatal), Hysterectomy, Tubal Ligation - Alcohol/Substance Use Hx Alcohol Use: No History of Substance Use: reports: None - Smoking History Smoking history: Never smoked Have you smoked in the past 12 months: No Aproximately how many cigarettes per day: 5 If you are a former smoker, when did you quit?: 1987 - Social History ADL: Independent History of Recent Travel: No Home Medications - Allergies Allergies/Adverse Reactions: Allergies Allergy/AdvReac Type Severity Reaction Status Date / Time Penicillins Allergy Severe Rash Verified 01/15/19 17:46 - Home Medications Home Medications: Ambulatory Orders [place]-3/Dha/Epa/Fish Oil [[place] 3 500 Softgel] 1 each PO DAILY 10/11/18 Allopurinol [Zyloprim -] 300 mg PO DAILY #30 tablet 11/09/18 Pantoprazole Sodium [Protonix -] 40 mg PO DAILY #30 tablet.ec 11/09/18 Aspirin [ASA -] 81 mg PO DAILY 12/30/18 Acetaminophen [Tylenol .Regular Strength -] 650 mg PO Q6H PRN #100 tablet Albuterol 2.5/Ipratropium 0.5 [Duoneb -] 1 amp NEB Q6H PRN #30 amp 01/07/19 Clopidogrel Bisulfate [Plavix -] 75 mg PO DAILY #30 tablet 01/07/19 Metoprolol Succinate [Toprol XL -] 12.5 mg PO DAILY #30 tab.sr.24h 01/07/19 Valacyclovir HCl [Valtrex -] 500 mg PO DAILY #30 tablet 01/07/19 Furosemide [Lasix -] 40 mg PO DAILY 01/28/19 Levothyroxine [Synthroid -] 50 mcg PO DAILY@0700 01/28/19 Losartan Potassium [Cozaar -] 25 mg PO DAILY 01/28/19 Potassium Chloride [K-Dur -] 10 meq PO DAILY 01/28/19 Prochlorperazine Maleate [Compazine] 10 mg PO Q6H PRN 01/28/19 Family Disease History - Family Disease History Family Disease History: [place]: Daughter (1 passed at 14yo of Hodgkin's lymphoma; 1 passed at 48 of lupus), Other: Daughter Vital Signs: Vital Signs Temperature 99.8 F H 01/29/19 08:05 Pulse Rate 102 H 01/29/19 08:05 Respiratory Rate 16 01/29/19 08:05 Blood Pressure 109/62 01/29/19 08:05 O2 Sat by Pulse Oximetry (%) 99 01/29/19 08:05 - Other Data Labs, Other Data: CBC, BMP 01/29/19 05:50 01/29/19 05:50 INR, PTT INR 1.03 (0.83-1.09) 01/28/19 19:55 Troponin, BNP 01/28/19 01/28/19 01/28/19 19:55 19:55 20:50 Troponin I Cancelled 0.07 H B-Natriuretic Peptide Cancelled 01/28/19 01/29/19 20:50 01:00 Troponin I 0.07 H B-Natriuretic Peptide 7055.4 H Troponin, BNP 01/28/19 01/28/19 01/28/19 19:55 19:55 20:50 Troponin I Cancelled 0.07 H B-Natriuretic Peptide Cancelled 01/28/19 01/29/19 20:50 01:00 Troponin I 0.07 H B-Natriuretic Peptide 7055.4 H
[2019-01-29] MEDS ORDERED: ALBUTEROL SO4 2.5/IPRATROPIUM 0.5 INH SOL 3 ML VIAL.NEB. NEB ONE (08:38)
[2019-01-29] MEDS ORDERED: ACETAMINOPHEN 325 MG TABLET (FP) ONE (08:38)
[2019-01-29] MEDS: ACETAMINOPHEN 325 MG TABLET (FP) PO PRN (08:39)
[2019-01-29] MEDS ORDERED: POTASSIUM CHLORIDE TABS 10 MEQ TABLET.ER (FP) ONE (09:53)
[2019-01-29] MEDS ORDERED: ASPIRIN 81 MG CHEWABLE TABLETS ONE (09:53)
[2019-01-29] MEDS ORDERED: HEPARIN NA (PORCINE) 5,000 UNITS/ML 1ML VIAL ONE (09:53)
[2019-01-29] MEDS ORDERED: LOSARTAN POTASSIUM 50 MG TABLET (FP) ONE (09:53)
[2019-01-29] MEDS ORDERED: FUROSEMIDE 40 MG/4 ML INJECTABLE VIAL ONE (09:54)
[2019-01-29] MEDS ORDERED: CLOPIDOGREL BISULFATE 75 MG TABLET (FP) ONE (09:56)
[2019-01-29] MEDS ORDERED: PANTOPRAZOLE 40 MG TABLET (FP) ONE (09:56)
[2019-01-29] MEDS ORDERED: ALLOPURINOL 100 MG TABLET (FP) ONE (09:56)
[2019-01-29] MEDS ORDERED: valACYclovir HCL 500 MG TABLET (FP) ONE (09:56)
[2019-01-29] MEDS: LOSARTAN POTASSIUM 25 MG TABLET PO SCH (09:57)
[2019-01-29] MEDS: POTASSIUM CHLORIDE TABS 10 MEQ TABLET.ER (FP) PO SCH (09:57)
[2019-01-29] MEDS: HEPARIN NA (PORCINE) 5,000 UNITS/ML 1ML VIAL SQ SCH ×2 (09:57→22:20)
[2019-01-29] MEDS: ASPIRIN 81 MG CHEWABLE TABLETS PO SCH (09:57)
[2019-01-29] MEDS: CLOPIDOGREL BISULFATE 75 MG TABLET (FP) PO SCH (09:58)
[2019-01-29] MEDS: valACYclovir HCL 500 MG TABLET (FP) PO SCH (09:58)
[2019-01-29] MEDS: PANTOPRAZOLE 40 MG TABLET (FP) PO SCH (09:58)
[2019-01-29] MEDS: ALLOPURINOL 300 MG TABLET (FP) PO SCH (09:58)
[2019-01-29] MEDS: FUROSEMIDE 40 MG/4 ML INJECTABLE VIAL IVPUSH SCH (10:13)
[2019-01-29] MEDS: metoPROLOL SUCCINATE 25 MG TAB.SR.24H (FP) PO SCH (10:27)
--- NOTE | 2019-01-29 11:50 | PN ---
Progress Note (short form) - Note Progress Note: Patient well known to Dr Stuart, managed for IgA myeloma (Velcade/cytoxan), with multiple recent hospital admissions, and recent cardiac episode (NSTEMI in 12/2018 s/p HOLLY D1 CHF (EF 45-50%)- preserved EF (45%), recently discharged, presented to ER with one day history of chest pain and SOB. Examined in ER - still reporting smilar chestpain - seen by cardiology. Admitted for observation and cardiav enzymes - thus far negative. No acute EKG changed. CXR unremarkable. Inpatient Meds reviewed. Current Medications Generic Name Dose Route Start Last Admin Trade Name Freq PRN Reason Stop Dose Admin Acetaminophen 650 mg 01/28/19 23:59 01/29/19 08:39 Tylenol - PO 650 mg Q6H PRN Administration PAIN LEVEL 1-5 Albuterol/Ipratropium 1 amp 01/28/19 23:59 01/29/19 08:39 Duoneb - NEB 1 amp Q6H PRN Administration SHORTNESS OF BREATH Allopurinol 300 mg 01/29/19 10:00 01/29/19 09:58 Zyloprim - PO 300 mg DAILY PABL[facility]O Administration Aspirin 81 mg 01/29/19 10:00 01/29/19 09:57 Asa - PO 81 mg DAILY PABL[facility]O Administration Clopidogrel Bisulfate 75 mg 01/29/19 10:00 01/29/19 09:58 Plavix - PO 75 mg DAILY PABL[facility]O Administration Furosemide 40 mg 01/29/19 10:00 Lasix Injection - IVPUSH DAILY [facility] Heparin Sodium (Porcine) 5,000 unit 01/29/19 10:00 01/29/19 09:57 Heparin - SQ 5,000 unit BID PABLITO Administration Levothyroxine Sodium 50 mcg 01/29/19 07:00 01/29/19 07:36 Synthroid - PO 50 mcg DAILY@0700 PABLITO Administration Losartan Potassium 25 mg 01/29/19 10:00 01/29/19 09:57 Cozaar - PO 25 mg DAILY PABLITO Administration Metoprolol Succinate 12.5 mg 01/29/19 10:00 Toprol Xl - PO DAILY PABLITO Pantoprazole Sodium 40 mg 01/29/19 10:00 01/29/19 09:58 Protonix - PO 40 mg DAILY PABLITO Administration Potassium Chloride 10 meq 01/29/19 10:00 01/29/19 09:57 K-Dur - PO 10 meq DAILY PABLITO Administration Prochlorperazine Maleate 10 mg 01/28/19 23:59 Compazine - PO Q6H PRN NAUSEA Valacyclovir HCl 500 mg 01/29/19 10:00 01/29/19 09:58 Valtrex - PO 500 mg DAILY PABLITO Administration On Examination: Last Vital Signs Temp Pulse Resp BP Pulse Ox 98.6 F 97 H 16 103/60 98 01/29/19 10:17 01/29/19 10:17 01/29/19 10:17 01/29/19 10:17 01/29/19 10:17 General: In no acute distress, supine in bed. Extremities: No pallor or icterus. No pedal edema. No palpable lymphadenopathy. CVS: S1, S2, regular, no gallop or murmur. Chest: good air entry bilaterally, clear Abdomen: Non-distended, non-tender, no palpable organomegaly. Neuro: Alert, oriented, non-focal. Labs: CBC, BMP 01/29/19 05:50 01/29/19 05:50 Assessment. IgA myeloma, with anemia and proteinuria (normal creatinine). Currently receiving Velcade/Cytoxan/Dex. History of non-ischemic DCM - (EF 45%, but recent stenting at [facility]- ?) Presented with 1 day history of chest pain and SOB - CXR normal. Being 'ruled out' - serial cardiac enzymes. Has presented similarly before, with suggestion of PE, but with negative CT angio (01/16). Oxygen saturation 98% on room air. Index of suspicion is low for PE, nevertheless, if cardiac is unremarkable consider empiric anticoagulation, and screening again for PE. Recently worked up for GI bleed - recent colonoscopy showing only a polyp - removed. Would check D-dimer - would be reassuring if negative. Hb possibly lower than baseline - doubt that anemia responsible for reported symptoms, but transfusion of a unit of RBCs would be reasonable Possibly may be non-organic etiology for patient's reported symptoms - possibly has significant stressor at home - beligerent, irrational, possibly intoxicated , son present in ER. Will follow. Please call with questions.
[2019-01-29] MEDS ORDERED: PT OWN MED DRAWER 7, Y5N ONE ×2 (12:25→22:28)
--- NOTE | 2019-01-29 14:52 | HP ---
Admitting History and Physical - Past Medical History Cardiovascular: Yes: CAD (s/p HOLLY D1 this month after NSTEMI), CHF (Chronic systolic CHF, mildly reduced LV function with EF 45%), HTN, Hyperlipdemia Pulmonary: Yes: Asthma Gastrointestinal: Yes: Other (hiatal hernia; rectal polyp) Renal/: Yes: Renal Inusuff, Other (proteinuria) Heme/Onc: Yes: Other (Multiple Myeloma on chemo) Psych: Yes: Depression Endocrine: Yes: Hypothyroidism - Past Surgical History Past Surgical History: Yes: Breast Biopsy (right for cysts), Hernia Repair ( laparoscopic hiatal), Hysterectomy, Tubal Ligation - Smoking History Smoking history: Never smoked Have you smoked in the past 12 months: No Aproximately how many cigarettes per day: 5 If you are a former smoker, when did you quit?: 1987 - Alcohol/Substance Use Hx Alcohol Use: No History of Substance Use: reports: None - Social History ADL: Independent History of Recent Travel: No Home Medications - Allergies Allergies/Adverse Reactions: Allergies Allergy/AdvReac Type Severity Reaction Status Date / Time Penicillins Allergy Severe Rash Verified 01/15/19 17:46 - Home Medications Home Medications: Ambulatory Orders [place]-3/Dha/Epa/Fish Oil [[place] 3 500 Softgel] 1 each PO DAILY 10/11/18 Allopurinol [Zyloprim -] 300 mg PO DAILY #30 tablet 11/09/18 Pantoprazole Sodium [Protonix -] 40 mg PO DAILY #30 tablet.ec 11/09/18 Aspirin [ASA -] 81 mg PO DAILY 12/30/18 Acetaminophen [Tylenol .Regular Strength -] 650 mg PO Q6H PRN #100 tablet Albuterol 2.5/Ipratropium 0.5 [Duoneb -] 1 amp NEB Q6H PRN #30 amp 01/07/19 Clopidogrel Bisulfate [Plavix -] 75 mg PO DAILY #30 tablet 01/07/19 Metoprolol Succinate [Toprol XL -] 12.5 mg PO DAILY #30 tab.sr.24h 01/07/19 Valacyclovir HCl [Valtrex -] 500 mg PO DAILY #30 tablet 01/07/19 Furosemide [Lasix -] 40 mg PO DAILY 01/28/19 Levothyroxine [Synthroid -] 50 mcg PO DAILY@0700 01/28/19 Losartan Potassium [Cozaar -] 25 mg PO DAILY 01/28/19 Potassium Chloride [K-Dur -] 10 meq PO DAILY 01/28/19 Prochlorperazine Maleate [Compazine] 10 mg PO Q6H PRN 01/28/19 Family Disease History - Family Disease History Family Disease History: [place]: Daughter (1 passed at 14yo of Hodgkin's lymphoma; 1 passed at 48 of lupus), Other: Daughter Physical Examination Vital Signs: Vital Signs Temperature 98.1 F 01/29/19 12:12 Pulse Rate 100 H 01/29/19 12:12 Respiratory Rate 16 01/29/19 12:12 Blood Pressure 117/67 01/29/19 12:12 O2 Sat by Pulse Oximetry (%) 98 01/29/19 12:12 Labs: CBC, BMP 01/29/19 05:50 01/29/19 05:50
[2019-01-29 17:08] LABS: N-TERMINAL BNP 7924.8 pg/ml (5-125)
[2019-01-29] MEDS ORDERED: FLU VACCINE QUAD 60 MCG/0.5 ML (MDV 18-19) IM ONE (18:39)
[2019-01-30] MEDS: LEVOTHYROXINE NA 50 MCG TABLET (FP) PO SCH (06:04)
--- NOTE | 2019-01-30 08:02 | CON.NEP ---
Consult Consult Specialty:: nephrology - History of Present Illness Chief Complaint: dyspnea History of Present Illness: The patient is a 73 year old female, with a significant past medical history of CAD s/p stent, HTN, HLD, multiple myeloma, who returns to the emergency department after recent discharge from this hospital on 01/25/19 for evaluation of nonexertional chest pressure and shortness of breath with one day of associated lower extremity swelling. She denies pain to her extremities. The patient denies headache and dizziness. The patient denies fever, chills, nausea, vomit, diarrhea and constipation. The patient denies dysuria, frequency , urgency and hematuria She has noted some whitish substance in her urine but no blood. No new medications. Says her edema is better - History Source History Provided By: Patient - Past Medical History Cardio/Vascular: Yes: CAD (s/p HOLLY D1 this month after NSTEMI), CHF (Chronic systolic CHF, mildly reduced LV function with EF 45%), HTN, Hyperlipdemia Pulmonary: Yes: Asthma Gastrointestinal: Yes: Other (hiatal hernia; rectal polyp) Renal/: Yes: Renal Inusuff, Other (proteinuria) ...LMP Comment: 1987 WHEN HYSTERECTOMY WAS DONE Psych: Yes: Depression Endocrine: Yes: Hypothyroidism - Past Surgical History Past Surgical History: Yes: Breast Biopsy (right for cysts), Hernia Repair ( laparoscopic hiatal), Hysterectomy, Tubal Ligation - Alcohol/Substance Use Hx Alcohol Use: Yes History of Substance Use: reports: None - Smoking History Smoking history: Former smoker Have you smoked in the past 12 months: No Aproximately how many cigarettes per day: 5 If you are a former smoker, when did you quit?: 1969 - Social History ADL: Independent History of Recent Travel: No Home Medications - Allergies Allergies/Adverse Reactions: Allergies Allergy/AdvReac Type Severity Reaction Status Date / Time Penicillins Allergy Severe Rash Verified 01/15/19 17:46 - Home Medications Home Medications: Ambulatory Orders [place]-3/Dha/Epa/Fish Oil [[place] 3 500 Softgel] 1 each PO DAILY 10/11/18 Allopurinol [Zyloprim -] 300 mg PO DAILY #30 tablet 11/09/18 Pantoprazole Sodium [Protonix -] 40 mg PO DAILY #30 tablet.ec 11/09/18 Aspirin [ASA -] 81 mg PO DAILY 12/30/18 Acetaminophen [Tylenol .Regular Strength -] 650 mg PO Q6H PRN #100 tablet Albuterol 2.5/Ipratropium 0.5 [Duoneb -] 1 amp NEB Q6H PRN #30 amp 01/07/19 Clopidogrel Bisulfate [Plavix -] 75 mg PO DAILY #30 tablet 01/07/19 Metoprolol Succinate [Toprol XL -] 12.5 mg PO DAILY #30 tab.sr.24h 01/07/19 Valacyclovir HCl [Valtrex -] 500 mg PO DAILY #30 tablet 01/07/19 Furosemide [Lasix -] 40 mg PO DAILY 01/28/19 Levothyroxine [Synthroid -] 50 mcg PO DAILY@0700 01/28/19 Losartan Potassium [Cozaar -] 25 mg PO DAILY 01/28/19 Potassium Chloride [K-Dur -] 10 meq PO DAILY 01/28/19 Prochlorperazine Maleate [Compazine] 10 mg PO Q6H PRN 01/28/19 Family Disease History - Family Disease History Family Disease History: [place]: Daughter (1 passed at 14yo of Hodgkin's lymphoma; 1 passed at 48 of lupus), Other: Daughter Review of Systems - Review of Systems Constitutional: reports: No Symptoms Eyes: reports: No Symptoms HENT: reports: No Symptoms Neck: reports: No Symptoms Cardiovascular: reports: Chest Pain, Shortness of Breath Respiratory: reports: SOB, SOB on Exertion Gastrointestinal: reports: No Symptoms Genitourinary: reports: Other (whitish substance) Breasts: reports: No Symptoms Reported Musculoskeletal: reports: Joint Swelling (noted right knee swelling) Integumentary: reports: No Symptoms Neurological: reports: No Symptoms Endocrine: reports: No Symptoms Hematology/Lymphatic: reports: No Symptoms Psychiatric: reports: No Symptoms Nephrology Consult - Height Height: 5 ft 4 in - Weight Weight: 169 lb 15.975 oz - BMI Body Mass Index (BMI): 29.2 - Lab Results CBC,BMP: CBC, BMP 01/29/19 05:50 01/29/19 05:50 Anion Gap: Anion Gap Anion Gap 10 MMOL/L (8-16) 01/29/19 05:50 - Imaging X-ray: Report Reviewed (no acute pathology) - Physical Examination Vital Signs: Vital Signs Temperature 98.8 F 01/30/19 06:00 Pulse Rate 94 H 01/30/19 06:00 Respiratory Rate 21 H 01/30/19 06:00 Blood Pressure 105/50 L 01/30/19 06:00 O2 Sat by Pulse Oximetry (%) 98 01/29/19 21:00 Constitutional: Yes: Well Nourished, No Distress, Calm Eyes: Yes: Conjunctiva Clear HENT: Yes: Atraumatic, Normocephalic Neck: Yes: Supple, Trachea Midline Cardiovascular: Yes: Regular Rate and Rhythm Respiratory: Yes: Regular, CTA Bilaterally Gastrointestinal: Yes: Normal Bowel Sounds Renal/: Yes: WNL Musculoskeletal: Yes: Joint Swelling (right knee ?swelling) Extremities: Yes: WNL Edema: LLE: Trace, RLE: Trace Peripheral Pulses WNL: Yes Integumentary: Yes: WNL Neurological: Yes: Alert, Oriented Psychiatric: Yes: Alert, Oriented Assessment/Plan IMPRESSION Multiple Myeloma nephrotic range proteinuria DEBBIE based on rise in creat from 0.8 to 1.3 anemia related to myeloma PLAN obtain urinalysis and urine sodium and creat hold diuretics for now unless clearly in failure. Note her xraya nd clinical exam dont suggest failure heme consult avoid nephrotoxins She had a recent CTA of chest but that did not cause current rise in creat reassurance MV
[2019-01-30] MEDS ORDERED: PT OWN MED DRAWER 7, Y5N ONE (09:19)
[2019-01-30] MEDS: FUROSEMIDE 40 MG/4 ML INJECTABLE VIAL IVPUSH SCH (09:37)
[2019-01-30] MEDS: ALLOPURINOL 300 MG TABLET (FP) PO SCH (09:37)
[2019-01-30] MEDS: valACYclovir HCL 500 MG TABLET (FP) PO SCH (09:37)
[2019-01-30] MEDS: POTASSIUM CHLORIDE TABS 10 MEQ TABLET.ER (FP) PO SCH (09:38)
[2019-01-30] MEDS: metoPROLOL SUCCINATE 25 MG TAB.SR.24H (FP) PO SCH (09:38)
[2019-01-30] MEDS: CLOPIDOGREL BISULFATE 75 MG TABLET (FP) PO SCH (09:38)
[2019-01-30] MEDS: LOSARTAN POTASSIUM 25 MG TABLET PO SCH (09:38)
[2019-01-30] MEDS: ASPIRIN 81 MG CHEWABLE TABLETS PO SCH (09:38)
[2019-01-30] MEDS: HEPARIN NA (PORCINE) 5,000 UNITS/ML 1ML VIAL SQ SCH ×2 (09:41→21:22)
[2019-01-30] MEDS: PANTOPRAZOLE 40 MG TABLET (FP) PO SCH (09:43)
[2019-01-30] MEDS: ACETAMINOPHEN 325 MG TABLET (FP) PO PRN ×2 (09:54→21:22)
[2019-01-30] MEDS ORDERED: PNEUMOC 13-VAL CONJ-DIP CRM/PF 0.5 ML DISP.SYRIN IM ONE (10:00)
--- NOTE | 2019-01-30 11:20 | PN ---
Progress Note (short form) - Note Progress Note: Patient now transferred to ICU - reports chest pain and leg swelling improved - but still experiencing dyspnea. Inpatient Meds reviewed. Current Medications Acetaminophen (Tylenol -) 650 mg PO Q6H PRN PRN Reason: PAIN LEVEL 1-5 Last Admin: 01/30/19 09:54 Dose: 650 mg Albuterol/Ipratropium (Duoneb -) 1 amp NEB Q6H PRN PRN Reason: SHORTNESS OF BREATH Last Admin: 01/29/19 08:39 Dose: 1 amp Allopurinol (Zyloprim -) 300 mg PO DAILY [facility] Last Admin: 01/30/19 09:37 Dose: 300 mg Aspirin (Asa -) 81 mg PO DAILY [facility] Last Admin: 01/30/19 09:38 Dose: 81 mg Clopidogrel Bisulfate (Plavix -) 75 mg PO DAILY [facility] Last Admin: 01/30/19 09:38 Dose: 75 mg Furosemide (Lasix Injection -) 40 mg IVPUSH DAILY [facility] Last Admin: 01/30/19 09:37 Dose: 40 mg Heparin Sodium (Porcine) (Heparin -) 5,000 unit SQ BID [facility] Last Admin: 01/30/19 09:41 Dose: 5,000 unit Levothyroxine Sodium (Synthroid -) 50 mcg PO DAILY@0700 [facility] Last Admin: 01/30/19 06:04 Dose: 50 mcg Losartan Potassium (Cozaar -) 25 mg PO DAILY [facility] Last Admin: 01/30/19 09:38 Dose: 25 mg Metoprolol Succinate (Toprol Xl -) 12.5 mg PO DAILY [facility] Last Admin: 01/30/19 09:38 Dose: 12.5 mg Pantoprazole Sodium (Protonix -) 40 mg PO DAILY [facility] Last Admin: 01/30/19 09:43 Dose: 40 mg Potassium Chloride (K-Dur -) 10 meq PO DAILY [facility] Last Admin: 01/30/19 09:38 Dose: 10 meq Prochlorperazine Maleate (Compazine -) 10 mg PO Q6H PRN PRN Reason: NAUSEA Valacyclovir HCl (Valtrex -) 500 mg PO DAILY [facility] Last Admin: 01/30/19 09:37 Dose: 500 mg On Examination: Last Vital Signs Temp Pulse Resp BP Pulse Ox 98.8 F 94 H 21 H 105/50 L 98 01/30/19 06:00 01/30/19 06:00 01/30/19 06:00 01/30/19 06:00 01/29/19 21:00 General: In no acute distress, supine in bed. Extremities: No pallor or icterus. No pedal edema. No palpable lymphadenopathy. CVS: S1, S2, regular, no gallop or murmur. Chest: good air entry bilaterally, clear, tachypneic Abdomen: Non-distended, non-tender, no palpable organomegaly. Neuro: Alert, oriented, non-focal. Labs: CBC, BMP 01/29/19 05:50 01/29/19 05:50 Assessment. IgA myeloma, with anemia and proteinuria (normal creatinine). Currently receiving Velcade/Cytoxan/Dex. History of non-ischemic DCM - (EF 45%, but recent stenting at [facility]- ?) Presented with 1 day history of chest pain and SOB - CXR normal. Cardiac enzymes unimpressive.. Has presented similarly before, with suggestion of PE, but with negative CT angio (01/16). Oxygen saturation currently 100% on room air, but tachypneic. Index of suspicion is low for PE, nevertheless, if cardiac is unremarkable consider empiric anticoagulation, and screening again for PE. Recently worked up for GI bleed - recent colonoscopy showing only a polyp - removed. Would check D-dimer - would be reassuring if negative. Hb possibly lower than baseline - doubt that anemia responsible for reported symptoms, but transfusion of a unit of RBCs would be reasonable. No labs ordered yet today. Possibly may be non-organic etiology for patient's reported symptoms - possibly has significant stressor at home - beligerent, irrational, possibly intoxicated , son present in ER. Will follow. Please call with questions.
[2019-01-30 12:13] LABS: BASO % 0.3 % (0-2.0); EOS % 0.5 % (0-4.5); HEMATOCRIT 26.3 % (32.4-45.2); HEMOGLOBIN 8.5 GM/dL (10.7-15.3); LYMPH % 28.6 % (8-40); MCH 30.2 pg (25.7-33.7); MCHC 32.4 g/dl (32.0-36.0); MEAN CELL VOLUME 93.1 fl (80-96); MEAN PLT VOLUME 8.7 fl (7.5-11.1); MONO % 13.7 % (3.8-10.2); NEUT % 56.9 % (42.8-82.8); PLATELET COUNT 173 K/MM3 (134-434); RBC 2.83 M/mm3 (3.60-5.2); RDW 20.7 % (11.6-15.6); WHITE BLOOD COUNT 4.2 K/mm3 (4.0-10.0)
--- NOTE | 2019-01-30 12:28 | CON.CARD ---
Consult Consult Specialty:: Cardiology Referred by:: Medicine Reason for Consultation:: elevated troponin - History of Present Illness Chief Complaint: sob, chest pain History of Present Illness: 73F h/o cardiomyopathy with mild systolic dysfunction, CAD s/p stent, HTN, HLD, multiple myeloma p/w chest pain, sob, lower ext edema. Given aspirin in the ER , receiving IV lasix. Reportedly low BP at baseline per prior reports from Dr. Ordonez, 90s-low 100s systolic chronically. Feels sob and edema have improved since admission. Currently feels a little dizzy, no chest pain, palps , dyspnea. - Past Medical History Cardio/Vascular: Yes: CAD (s/p HOLLY D1 this month after NSTEMI), CHF (Chronic systolic CHF, mildly reduced LV function with EF 45%), HTN, Hyperlipdemia Pulmonary: Yes: Asthma Gastrointestinal: Yes: Other (hiatal hernia; rectal polyp) Renal/: Yes: Renal Inusuff, Other (proteinuria) ...LMP Comment: 1987 WHEN HYSTERECTOMY WAS DONE Psych: Yes: Depression Endocrine: Yes: Hypothyroidism - Past Surgical History Past Surgical History: Yes: Breast Biopsy (right for cysts), Hernia Repair ( laparoscopic hiatal), Hysterectomy, Tubal Ligation - Alcohol/Substance Use Hx Alcohol Use: Yes History of Substance Use: reports: None - Smoking History Smoking history: Former smoker Have you smoked in the past 12 months: No Aproximately how many cigarettes per day: 5 If you are a former smoker, when did you quit?: 1969 - Social History ADL: Independent History of Recent Travel: No Home Medications - Allergies Allergies/Adverse Reactions: Allergies Allergy/AdvReac Type Severity Reaction Status Date / Time Penicillins Allergy Severe Rash Verified 01/15/19 17:46 - Home Medications Home Medications: Ambulatory Orders [place]-3/Dha/Epa/Fish Oil [[place] 3 500 Softgel] 1 each PO DAILY 10/11/18 Allopurinol [Zyloprim -] 300 mg PO DAILY #30 tablet 11/09/18 Pantoprazole Sodium [Protonix -] 40 mg PO DAILY #30 tablet.ec 11/09/18 Aspirin [ASA -] 81 mg PO DAILY 12/30/18 Acetaminophen [Tylenol .Regular Strength -] 650 mg PO Q6H PRN #100 tablet Albuterol 2.5/Ipratropium 0.5 [Duoneb -] 1 amp NEB Q6H PRN #30 amp 01/07/19 Clopidogrel Bisulfate [Plavix -] 75 mg PO DAILY #30 tablet 01/07/19 Metoprolol Succinate [Toprol XL -] 12.5 mg PO DAILY #30 tab.sr.24h 01/07/19 Valacyclovir HCl [Valtrex -] 500 mg PO DAILY #30 tablet 01/07/19 Furosemide [Lasix -] 40 mg PO DAILY 01/28/19 Levothyroxine [Synthroid -] 50 mcg PO DAILY@0700 01/28/19 Losartan Potassium [Cozaar -] 25 mg PO DAILY 01/28/19 Potassium Chloride [K-Dur -] 10 meq PO DAILY 01/28/19 Prochlorperazine Maleate [Compazine] 10 mg PO Q6H PRN 01/28/19 Family Disease History - Family Disease History Family Disease History: [place]: Daughter (1 passed at 14yo of Hodgkin's lymphoma; 1 passed at 48 of lupus), Other: Daughter Review of Systems - Review of Systems Constitutional: reports: No Symptoms Eyes: reports: No Symptoms HENT: reports: No Symptoms Neck: reports: No Symptoms Cardiovascular: reports: No Symptoms Respiratory: reports: No Symptoms Gastrointestinal: reports: No Symptoms Genitourinary: reports: No Symptoms Musculoskeletal: reports: No Symptoms Integumentary: reports: No Symptoms Neurological: reports: No Symptoms Endocrine: reports: No Symptoms Hematology/Lymphatic: reports: No Symptoms Psychiatric: reports: No Symptoms Vital Signs: Vital Signs Temperature 99 F 01/30/19 10:00 Pulse Rate 94 H 01/30/19 10:00 Respiratory Rate 17 01/30/19 10:00 Blood Pressure 121/53 L 01/30/19 10:00 O2 Sat by Pulse Oximetry (%) 100 01/30/19 09:00 Constitutional: Yes: Well Nourished, No Distress, Calm Eyes: Yes: Conjunctiva Clear, EOM Intact HENT: Yes: Atraumatic, Normocephalic Neck: Yes: Supple, Trachea Midline Respiratory: Yes: Regular, CTA Bilaterally Gastrointestinal: Yes: Normal Bowel Sounds, Soft Cardiovascular: Yes: Regular Rate and Rhythm JVD: Yes Carotid Bruit: No PMI: Non-Displaced Heart Sounds: Yes: S1, S2 Musculoskeletal: No: Back Pain Extremities: No: Cold Edema: No Peripheral Pulses WNL: Yes Peripheral Pulses: 2+ Left Doralis Pedis, 2+ Right Dorsalis Pedis Neurological: Yes: Alert, Oriented Psychiatric: No: Agitated - Other Data Labs, Other Data: CBC, BMP 01/30/19 11:30 INR, PTT INR 1.03 (0.83-1.09) 01/28/19 19:55 Troponin, BNP 01/29/19 15:30 Troponin I 0.06 H B-Natriuretic Peptide 7924.8 H Troponin, BNP 01/29/19 15:30 Troponin I 0.06 H B-Natriuretic Peptide 7924.8 H Assessment/Plan EKG: sinus, nonspecific ST changes, unchanged from prior CXR: no acute process echo 12/2018 mildly reduced LV function, apical septal mild hypokinesis, basal anteroseptal mild hypokinesis, mid anteroseptal mild hypokinesis, septal wall mild hypokinesis, nl RV, grade II diastolic dysfunction, LA mildly dilated, mild MR, mild TR, PASP at least 28 mmHg, mild AR, mild [place] tele: sinus, PACs 73F h/o cardiomyopathy with mild systolic dysfunction, CAD s/p stent, HTN, HLD, multiple myeloma p/w chest pain, sob, lower ext edema chest pain, sob, lower ext edema, acute systolic CHF exac - on IV lasix 40 mg daily - BNP >7900, similar to prior values, has mild JVD, dyspnea and edema have improved since admission - cont losartan, metoprolol - BPs consistent with baseline - cont IV lasix 40 mg daily, monitor daily weight, Cr, lytes CAD - cont aspirin, statin, plavix, bb mult myeloma, anemia - onc folllowing
[2019-01-30 12:37] LABS: ANION GAP 10 MMOL/L (8-16); BLOOD UREA NITROGEN 25 mg/dL (7-18); CALCIUM 8.1 mg/dL (8.5-10.1); CHLORIDE 110 mmol/L (98-107); CO2 20 mmol/L (21-32); CREATININE 1.7 mg/dL (0.55-1.3); GLUCOSE,RANDOM 98 mg/dL (74-106); POTASSIUM 3.6 mmol/L (3.5-5.1); SODIUM 141 mmol/L (136-145)
[2019-01-30 16:04] LABS: ANISOCYTOSIS 1+; TEAR DROP CELLS 1+
[2019-01-30 16:05] LABS: PLATELET ESTIMATE ADEQUATE
--- NOTE | 2019-01-30 23:52 | PN ---
Progress Note, Physician History of Present Illness: Pt w/ episodes of hypotension - Current Medication List Current Medications: Active Medications Acetaminophen (Tylenol -) 650 mg PO Q6H PRN PRN Reason: PAIN LEVEL 1-5 Last Admin: 01/30/19 21:22 Dose: 650 mg Albuterol/Ipratropium (Duoneb -) 1 amp NEB Q6H PRN PRN Reason: SHORTNESS OF BREATH Last Admin: 01/29/19 08:39 Dose: 1 amp Aspirin (Asa -) 81 mg PO DAILY [facility] Last Admin: 01/30/19 09:38 Dose: 81 mg Clopidogrel Bisulfate (Plavix -) 75 mg PO DAILY [facility] Last Admin: 01/30/19 09:38 Dose: 75 mg Heparin Sodium (Porcine) (Heparin -) 5,000 unit SQ BID [facility] Last Admin: 01/30/19 21:22 Dose: 5,000 unit Levothyroxine Sodium (Synthroid -) 50 mcg PO DAILY@0700 [facility] Last Admin: 01/30/19 06:04 Dose: 50 mcg Metoprolol Succinate (Toprol Xl -) 12.5 mg PO DAILY [facility] Last Admin: 01/30/19 09:38 Dose: 12.5 mg Pantoprazole Sodium (Protonix -) 40 mg PO DAILY [facility] Last Admin: 01/30/19 09:43 Dose: 40 mg Potassium Chloride (K-Dur -) 10 meq PO DAILY [facility] Last Admin: 01/30/19 09:38 Dose: 10 meq Prochlorperazine Maleate (Compazine -) 10 mg PO Q6H PRN PRN Reason: NAUSEA Valacyclovir HCl (Valtrex -) 500 mg PO DAILY [facility] Last Admin: 01/30/19 09:37 Dose: 500 mg - Objective Vital Signs: Vital Signs Temperature 98.8 F 01/30/19 14:00 Pulse Rate 81 01/30/19 14:00 Respiratory Rate 17 01/30/19 14:00 Blood Pressure 99/52 L 01/30/19 14:00 O2 Sat by Pulse Oximetry (%) 97 01/30/19 21:00 Neck: Yes: WNL, Supple Cardiovascular: Yes: WNL, Regular Rate and Rhythm Respiratory: Yes: WNL, Regular, CTA Bilaterally Gastrointestinal: Yes: WNL, Normal Bowel Sounds, Soft Labs: CBC, BMP 01/30/19 11:30 01/30/19 11:30 INR, PTT INR 1.03 (0.83-1.09) 01/28/19 19:55 Problem List - Problems (1) Acute on chronic systolic CHF (congestive heart failure) Assessment/Plan: Cont IV lasix as per cardio Pt w/ episodes of hypotension Code(s): I50.23 - ACUTE ON CHRONIC SYSTOLIC (CONGESTIVE) HEART FAILURE (2) Multiple myeloma Assessment/Plan: As per onco Will get PT eval Pt may need placement in STR Code(s): C90.00 - MULTIPLE MYELOMA NOT HAVING ACHIEVED REMISSION Qualifiers: Multiple myeloma remission status: unspecified Qualified Code(s): C90.00 - Multiple myeloma not having achieved remission (3) CAD (coronary artery disease) Code(s): I25.10 - ATHSCL HEART DISEASE OF [place] CORONARY ARTERY W/O ANG PCTRS Qualifiers: Coronary Disease-Associated Artery/Lesion type: unspecified vessel or lesion type [place] vs. transplanted heart: unspecified whether [place] or transplanted heart Associated angina: with unspecified angina Qualified Code (s): I25.119 - Atherosclerotic heart disease of [place] coronary artery with unspecified angina pectoris (4) HTN (hypertension) Code(s): I10 - ESSENTIAL (PRIMARY) HYPERTENSION Qualifiers: Hypertension type: unspecified Qualified Code(s): I10 - Essential (primary ) hypertension (5) Anemia Code(s): D64.9 - ANEMIA, UNSPECIFIED (6) CKD (chronic kidney disease) Code(s): N18.9 - CHRONIC KIDNEY DISEASE, UNSPECIFIED (7) Elevated troponin Code(s): R74.8 - ABNORMAL LEVELS OF OTHER SERUM ENZYMES
[2019-01-31] MEDS: LEVOTHYROXINE NA 50 MCG TABLET (FP) PO SCH (06:25)
[2019-01-31 06:35] LABS: BASO % 0.4 % (0-2.0); EOS % 0.6 % (0-4.5); HEMATOCRIT 25.9 % (32.4-45.2); HEMOGLOBIN 8.5 GM/dL (10.7-15.3); LYMPH % 30.3 % (8-40); MCH 30.4 pg (25.7-33.7); MCHC 32.7 g/dl (32.0-36.0); MEAN PLT VOLUME 8.9 fl (7.5-11.1); MONO % 13.9 % (3.8-10.2); NEUT % 54.8 % (42.8-82.8); PLATELET COUNT 155 K/MM3 (134-434); RBC 2.79 M/mm3 (3.60-5.2); WHITE BLOOD COUNT 4.6 K/mm3 (4.0-10.0)
[2019-01-31 07:08] LABS: ALBUMIN 1.5 g/dl (3.4-5.0); ALK PHOS 54 U/L (45-117); ANION GAP 9 MMOL/L (8-16); BILIRUBIN,TOTAL 0.4 mg/dL (0.2-1); BLOOD UREA NITROGEN 21 mg/dL (7-18); CALCIUM 7.8 mg/dL (8.5-10.1); CHLORIDE 112 mmol/L (98-107); CO2 20 mmol/L (21-32); CREATININE 1.6 mg/dL (0.55-1.3); GLUCOSE,RANDOM 88 mg/dL (74-106); POTASSIUM 3.6 mmol/L (3.5-5.1); SGOT/AST 11 U/L (15-37); SGPT/ALT 15 U/L (13-61); SODIUM 141 mmol/L (136-145); TOT PROT 7.8 g/dl (6.4-8.2)
[2019-01-31] MEDS ORDERED: PT OWN MED DRAWER 7, Y5N ONE (09:44)
[2019-01-31] MEDS: ASPIRIN 81 MG CHEWABLE TABLETS PO SCH (09:55)
[2019-01-31] MEDS: PANTOPRAZOLE 40 MG TABLET (FP) PO SCH (09:55)
[2019-01-31] MEDS: HEPARIN NA (PORCINE) 5,000 UNITS/ML 1ML VIAL SQ SCH ×2 (09:55→21:44)
[2019-01-31] MEDS: metoPROLOL SUCCINATE 25 MG TAB.SR.24H (FP) PO SCH (09:55)
[2019-01-31] MEDS: valACYclovir HCL 500 MG TABLET (FP) PO SCH (09:55)
[2019-01-31] MEDS: CLOPIDOGREL BISULFATE 75 MG TABLET (FP) PO SCH (09:55)
[2019-01-31] MEDS: POTASSIUM CHLORIDE TABS 10 MEQ TABLET.ER (FP) PO SCH (09:55)
--- NOTE | 2019-01-31 10:46 | PN ---
Progress Note, Physician Chief Complaint: sob History of Present Illness: tangential in conversation. fixated on being given tylenol, which she is allergic to. states she feels sob but cannot say if improved vs prior to hosp stay denies cp except at points of tele lead stickers no palpit, syncope - Current Medication List Current Medications: Active Medications Acetaminophen (Tylenol -) 650 mg PO Q6H PRN PRN Reason: PAIN LEVEL 1-5 Last Admin: 01/30/19 21:22 Dose: 650 mg Albuterol/Ipratropium (Duoneb -) 1 amp NEB Q6H PRN PRN Reason: SHORTNESS OF BREATH Last Admin: 01/29/19 08:39 Dose: 1 amp Aspirin (Asa -) 81 mg PO DAILY [facility] Last Admin: 01/31/19 09:55 Dose: 81 mg Clopidogrel Bisulfate (Plavix -) 75 mg PO DAILY [facility] Last Admin: 01/31/19 09:55 Dose: 75 mg Heparin Sodium (Porcine) (Heparin -) 5,000 unit SQ BID [facility] Last Admin: 01/31/19 09:55 Dose: 5,000 unit Levothyroxine Sodium (Synthroid -) 50 mcg PO DAILY@0700 [facility] Last Admin: 01/31/19 06:25 Dose: 50 mcg Metoprolol Succinate (Toprol Xl -) 12.5 mg PO DAILY [facility] Last Admin: 01/31/19 09:55 Dose: 12.5 mg Pantoprazole Sodium (Protonix -) 40 mg PO DAILY [facility] Last Admin: 01/31/19 09:55 Dose: 40 mg Potassium Chloride (K-Dur -) 10 meq PO DAILY [facility] Last Admin: 01/31/19 09:55 Dose: 10 meq Prochlorperazine Maleate (Compazine -) 10 mg PO Q6H PRN PRN Reason: NAUSEA Valacyclovir HCl (Valtrex -) 500 mg PO DAILY [facility] Last Admin: 01/31/19 09:55 Dose: 500 mg - Objective Vital Signs: Vital Signs Temperature 98.6 F 01/31/19 08:00 Pulse Rate 89 01/31/19 08:00 Respiratory Rate 17 01/31/19 08:00 Blood Pressure 117/59 L 01/31/19 08:00 O2 Sat by Pulse Oximetry (%) 97 01/30/19 21:00 Constitutional: Yes: Well Nourished, No Distress, Calm Cardiovascular: Yes: Regular Rate and Rhythm, JVD (mild), S1, S2. No: Gallop, Murmur Respiratory: Yes: Regular, CTA Bilaterally. No: Accessory Muscle Use, Rales, Wheezes Extremities: No: Cold Edema: No Neurological: Yes: Alert. No: Seizure Psychiatric: No: Agitated Labs: CBC, BMP 01/31/19 05:30 01/31/19 05:30 INR, PTT INR 1.03 (0.83-1.09) 01/28/19 19:55 Assessment/Plan EKG: sinus, nonspecific ST changes, unchanged from prior CXR: no acute process echo 12/2018 mildly reduced LV function, apical septal mild hypokinesis, basal anteroseptal mild hypokinesis, mid anteroseptal mild hypokinesis, septal wall mild hypokinesis, nl RV, grade II diastolic dysfunction, LA mildly dilated, mild MR, mild TR, PASP at least 28 mmHg, mild AR, mild [place] tele: sinus, PACs 73F h/o cardiomyopathy with mild systolic dysfunction, CAD s/p stent, HTN, HLD, multiple myeloma p/w chest pain, sob, lower ext edema chest pain, acute systolic CHF exac - on IV lasix 40 mg daily - BNP >7900, similar to prior values, has mild JVD, dyspnea and edema have improved since admission - cont losartan, metoprolol - BPs consistent with baseline - treated with IV lasix 40 mg daily. held 01/30 for worsening renal fxn. - 01/31: mild JVD suspected, otherwise euvolemic. agree with holding lasix for now in light of renal fxn and underlying myeloma--observe DEBBIE: - creatinine rising past several days, though bun is falling - nephrotic range proteinuria - renal following. lasix held 01/30 CAD - no signs of acute ischemia here - cont aspirin, statin, plavix, bb mult myeloma, anemia - onc folllowing
--- NOTE | 2019-01-31 10:53 | EKG ---
Test Reason : Blood Pressure : / mmHG Vent. Rate : 097 BPM Atrial Rate : 097 BPM P-R Int : 154 ms QRS Dur : 102 ms QT Int : 346 ms P-R-T Axes : 041 -18 200 degrees QTc Int : 439 ms SINUS RHYTHM WITH PREMATURE ATRIAL COMPLEXES POSSIBLE LEFT ATRIAL ENLARGEMENT ABNORMAL ECG WHEN COMPARED WITH ECG OF 21-JAN-2019 10:12, PREMATURE ATRIAL COMPLEXES ARE NOW PRESENT Confirmed by HILDA PALMER, LEANDRO ([id number]) on 01/31/2019 10:53:09 AM Referred By: Confirmed By:LEANDRO STEVENS MD
--- NOTE | 2019-01-31 11:51 | PN ---
Progress Note, Physician History of Present Illness: Pt seen and examined at bedside. She is awake and appears comfortable. She denies shortness of breath. - Current Medication List Current Medications: Active Medications Acetaminophen (Tylenol -) 650 mg PO Q6H PRN PRN Reason: PAIN LEVEL 1-5 Last Admin: 01/30/19 21:22 Dose: 650 mg Albuterol/Ipratropium (Duoneb -) 1 amp NEB Q6H PRN PRN Reason: SHORTNESS OF BREATH Last Admin: 01/29/19 08:39 Dose: 1 amp Aspirin (Asa -) 81 mg PO DAILY [facility] Last Admin: 01/31/19 09:55 Dose: 81 mg Clopidogrel Bisulfate (Plavix -) 75 mg PO DAILY [facility] Last Admin: 01/31/19 09:55 Dose: 75 mg Heparin Sodium (Porcine) (Heparin -) 5,000 unit SQ BID [facility] Last Admin: 01/31/19 09:55 Dose: 5,000 unit Levothyroxine Sodium (Synthroid -) 50 mcg PO DAILY@0700 [facility] Last Admin: 01/31/19 06:25 Dose: 50 mcg Metoprolol Succinate (Toprol Xl -) 12.5 mg PO DAILY [facility] Last Admin: 01/31/19 09:55 Dose: 12.5 mg Pantoprazole Sodium (Protonix -) 40 mg PO DAILY [facility] Last Admin: 01/31/19 09:55 Dose: 40 mg Potassium Chloride (K-Dur -) 10 meq PO DAILY [facility] Last Admin: 01/31/19 09:55 Dose: 10 meq Prochlorperazine Maleate (Compazine -) 10 mg PO Q6H PRN PRN Reason: NAUSEA Valacyclovir HCl (Valtrex -) 500 mg PO DAILY [facility] Last Admin: 01/31/19 09:55 Dose: 500 mg - Objective Vital Signs: Vital Signs Temperature 98.6 F 01/31/19 08:00 Pulse Rate 89 01/31/19 08:00 Respiratory Rate 17 01/31/19 08:00 Blood Pressure 117/59 L 01/31/19 08:00 O2 Sat by Pulse Oximetry (%) 97 01/30/19 21:00 Constitutional: Yes: Calm Eyes: Yes: Conjunctiva Clear HENT: Yes: Atraumatic Neck: Yes: Supple Cardiovascular: Yes: S1, S2 Gastrointestinal: Yes: Soft Genitourinary: Yes: WNL Musculoskeletal: Yes: WNL Edema: No Neurological: Yes: Oriented Labs: CBC, BMP 01/31/19 05:30 01/31/19 05:30 INR, PTT INR 1.03 (0.83-1.09) 01/28/19 19:55 Assessment/Plan Current Medications Generic Name Dose Route Start Last Admin Trade Name Freq PRN Reason Stop Dose Admin Acetaminophen 650 mg 01/28/19 23:59 01/30/19 21:22 Tylenol - PO 650 mg Q6H PRN Administration PAIN LEVEL 1-5 Albuterol/Ipratropium 1 amp 01/28/19 23:59 01/29/19 08:39 Duoneb - NEB 1 amp Q6H PRN Administration SHORTNESS OF BREATH Aspirin 81 mg 01/29/19 10:00 01/31/19 09:55 Asa - PO 81 mg DAILY [facility] Administration Clopidogrel Bisulfate 75 mg 01/29/19 10:00 01/31/19 09:55 Plavix - PO 75 mg DAILY [facility] Administration Heparin Sodium (Porcine) 5,000 unit 01/29/19 10:00 01/31/19 09:55 Heparin - SQ 5,000 unit BID [facility] Administration Levothyroxine Sodium 50 mcg 01/29/19 07:00 01/31/19 06:25 Synthroid - PO 50 mcg DAILY@0700 [facility] Administration Metoprolol Succinate 12.5 mg 01/29/19 10:00 01/31/19 09:55 Toprol Xl - PO 12.5 mg DAILY [facility] Administration Pantoprazole Sodium 40 mg 01/29/19 10:00 01/31/19 09:55 Protonix - PO 40 mg DAILY [facility] Administration Potassium Chloride 10 meq 01/29/19 10:00 01/31/19 09:55 K-Dur - PO 10 meq DAILY [facility] Administration Prochlorperazine Maleate 10 mg 01/28/19 23:59 Compazine - PO Q6H PRN NAUSEA Valacyclovir HCl 500 mg 01/29/19 10:00 01/31/19 09:55 Valtrex - PO 500 mg DAILY [facility] Administration Impression 1. proteinuria 2. multiple myeloma 3. amyloid 4. dizziness 5. hypotension 6. HLD 7. hypothyroidism 8. anemia 9. CKD 10. hypercalcemia Plan - lasix on hold - calcium is improving - monitor renal function - encourage PO intake - pt not tolerating joyce - check ua and prt to [employer] worker ratio
[2019-01-31 12:33] LABS: EPI CELLS >36 /HPF (0-5); URINE APPEARANCE CLOUDY; URINE BACTERIA 9.8 /hpf (NEGATIVE); URINE BILIRUBIN NEGATIVE (NEGATIVE); URINE CASTS 33 /hpf (0-8); URINE COLOR YELLOW; URINE GLUCOSE (UA) 1+ (NEGATIVE); URINE KETONE NEGATIVE (NEGATIVE); URINE LEUK ESTERASE NEGATIVE (NEGATIVE); URINE NITRITE NEGATIVE (NEGATIVE); URINE PROTEIN 4+ (NEGATIVE); URINE RBC 6 /hpf (0-4); URINE UROBILINOGEN 0.2 mg/dL (0.2-1.0); URINE WBC 6 /hpf (0-5)
[2019-01-31 13:12] LABS: RATIO URIN PROTEIN/URIN CREAT 1.14 MG/DL; URINE CREATININE 27.2 mg/dL (20-275)
[2019-01-31 14:37] VITALS: BMI 29.0
--- NOTE | 2019-01-31 18:54 | PN ---
Progress Note, Physician History of Present Illness: Pt still w/ some SOB - Current Medication List Current Medications: Active Medications Acetaminophen (Tylenol -) 650 mg PO Q6H PRN PRN Reason: PAIN LEVEL 1-5 Last Admin: 01/30/19 21:22 Dose: 650 mg Albuterol/Ipratropium (Duoneb -) 1 amp NEB Q6H PRN PRN Reason: SHORTNESS OF BREATH Last Admin: 01/29/19 08:39 Dose: 1 amp Aspirin (Asa -) 81 mg PO DAILY [facility] Last Admin: 01/31/19 09:55 Dose: 81 mg Clopidogrel Bisulfate (Plavix -) 75 mg PO DAILY [facility] Last Admin: 01/31/19 09:55 Dose: 75 mg Heparin Sodium (Porcine) (Heparin -) 5,000 unit SQ BID [facility] Last Admin: 01/31/19 09:55 Dose: 5,000 unit Levothyroxine Sodium (Synthroid -) 50 mcg PO DAILY@0700 [facility] Last Admin: 01/31/19 06:25 Dose: 50 mcg Metoprolol Succinate (Toprol Xl -) 12.5 mg PO DAILY [facility] Last Admin: 01/31/19 09:55 Dose: 12.5 mg Pantoprazole Sodium (Protonix -) 40 mg PO DAILY [facility] Last Admin: 01/31/19 09:55 Dose: 40 mg Potassium Chloride (K-Dur -) 10 meq PO DAILY [facility] Last Admin: 01/31/19 09:55 Dose: 10 meq Prochlorperazine Maleate (Compazine -) 10 mg PO Q6H PRN PRN Reason: NAUSEA Valacyclovir HCl (Valtrex -) 500 mg PO DAILY [facility] Last Admin: 01/31/19 09:55 Dose: 500 mg - Objective Vital Signs: Vital Signs Temperature 98.4 F 01/31/19 15:24 Pulse Rate 88 01/31/19 15:24 Respiratory Rate 18 01/31/19 15:24 Blood Pressure 129/71 01/31/19 15:24 O2 Sat by Pulse Oximetry (%) 100 01/31/19 09:58 Neck: Yes: WNL, Supple Cardiovascular: Yes: WNL, Regular Rate and Rhythm Respiratory: Yes: WNL, Regular, CTA Bilaterally Gastrointestinal: Yes: WNL, Normal Bowel Sounds, Soft Edema: No Labs: CBC, BMP 01/31/19 05:30 01/31/19 05:30 INR, PTT INR 1.03 (0.83-1.09) 01/28/19 19:55 Problem List - Problems (1) Acute on chronic systolic CHF (congestive heart failure) Assessment/Plan: Lasix as per cardio Monitor electrolytes Code(s): I50.23 - ACUTE ON CHRONIC SYSTOLIC (CONGESTIVE) HEART FAILURE (2) Multiple myeloma Assessment/Plan: As per onco Code(s): C90.00 - MULTIPLE MYELOMA NOT HAVING ACHIEVED REMISSION Qualifiers: Multiple myeloma remission status: unspecified Qualified Code(s): C90.00 - Multiple myeloma not having achieved remission (3) CAD (coronary artery disease) Assessment/Plan: Cont asa/plavix Code(s): I25.10 - ATHSCL HEART DISEASE OF [place] CORONARY ARTERY W/O ANG PCTRS Qualifiers: Coronary Disease-Associated Artery/Lesion type: unspecified vessel or lesion type [place] vs. transplanted heart: unspecified whether [place] or transplanted heart Associated angina: with unspecified angina Qualified Code (s): I25.119 - Atherosclerotic heart disease of [place] coronary artery with unspecified angina pectoris (4) HTN (hypertension) Assessment/Plan: Cont toprol Code(s): I10 - ESSENTIAL (PRIMARY) HYPERTENSION Qualifiers: Hypertension type: unspecified Qualified Code(s): I10 - Essential (primary ) hypertension (5) Anemia Assessment/Plan: Monitor H/H Code(s): D64.9 - ANEMIA, UNSPECIFIED (6) CKD (chronic kidney disease) Code(s): N18.9 - CHRONIC KIDNEY DISEASE, UNSPECIFIED (7) Elevated troponin Assessment/Plan: Due to demand ischemia Code(s): R74.8 - ABNORMAL LEVELS OF OTHER SERUM ENZYMES (8) Hypothyroidism Assessment/Plan: Cont levothyroxine Code(s): E03.9 - HYPOTHYROIDISM, UNSPECIFIED
[2019-01-31] MEDS ORDERED: SODIUM CHLORIDE 1,000 ML IV SCH (20:00)
--- NOTE | 2019-01-31 23:03 | PN ---
Progress Note (short form) - Note Progress Note: Patient seen and examined feels better afvss Cor: RSR, No murmurs, No gallops Lungs: Clear to P&A Abd: Soft, Normal bowel sounds, No organomegaly Ext:No significant edema labs/meds reviewed a/p 73 y/o patient with myeloma/amyloid, ckd/chf/nephrotic syndrome, s/p coronary stents patient aditted with atypical chestpain/sob suspect component of anxiety discussec with renal/primary teams lasix on hold gentle hydration may need prbcs in the processof switchinh to revlimid/dex
[2019-02-01] MEDS: LEVOTHYROXINE NA 50 MCG TABLET (FP) PO SCH (06:38)
--- NOTE | 2019-02-01 09:38 | PN ---
Progress Note (short form) - Note Progress Note: Chief Complaint: sob History of Present Illness: no chest pain, palps, sob. sometimes dizzy. Current Medications Acetaminophen (Tylenol -) 650 mg PO Q6H PRN PRN Reason: PAIN LEVEL 1-5 Last Admin: 01/30/19 21:22 Dose: 650 mg Albuterol/Ipratropium (Duoneb -) 1 amp NEB Q6H PRN PRN Reason: SHORTNESS OF BREATH Last Admin: 01/29/19 08:39 Dose: 1 amp Aspirin (Asa -) 81 mg PO DAILY [facility] Last Admin: 01/31/19 09:55 Dose: 81 mg Clopidogrel Bisulfate (Plavix -) 75 mg PO DAILY [facility] Last Admin: 01/31/19 09:55 Dose: 75 mg Heparin Sodium (Porcine) (Heparin -) 5,000 unit SQ BID [facility] Last Admin: 01/31/19 21:44 Dose: 5,000 unit Sodium Chloride (Normal Saline -) 1,000 mls @ 42 mls/hr IV ASDIR [facility] Levothyroxine Sodium (Synthroid -) 50 mcg PO DAILY@0700 [facility] Last Admin: 02/01/19 06:38 Dose: 50 mcg Metoprolol Succinate (Toprol Xl -) 12.5 mg PO DAILY [facility] Last Admin: 01/31/19 09:55 Dose: 12.5 mg Pantoprazole Sodium (Protonix -) 40 mg PO DAILY [facility] Last Admin: 01/31/19 09:55 Dose: 40 mg Potassium Chloride (K-Dur -) 10 meq PO DAILY [facility] Last Admin: 01/31/19 09:55 Dose: 10 meq Prochlorperazine Maleate (Compazine -) 10 mg PO Q6H PRN PRN Reason: NAUSEA Valacyclovir HCl (Valtrex -) 500 mg PO DAILY [facility] Last Admin: 01/31/19 09:55 Dose: 500 mg - Objective Vital Signs Period Temp Pulse Resp BP Sys/Moss Pulse Ox Last 24 Hr 98.2 F-98.6 F 88-92 17-23 108-129/56-71 100 Constitutional: Yes: Well Nourished, No Distress, Calm Cardiovascular: Yes: Regular Rate and Rhythm, JVD (mild), S1, S2. No: Gallop, Murmur Respiratory: Yes: Regular, CTA Bilaterally. No: Accessory Muscle Use, Rales, Wheezes Extremities: No: Cold Edema: No Neurological: Yes: Alert. No: Seizure Psychiatric: No: Agitated Assessment/Plan EKG: sinus, nonspecific ST changes, unchanged from prior CXR: no acute process echo 12/2018 mildly reduced LV function, apical septal mild hypokinesis, basal anteroseptal mild hypokinesis, mid anteroseptal mild hypokinesis, septal wall mild hypokinesis, nl RV, grade II diastolic dysfunction, LA mildly dilated, mild MR, mild TR, PASP at least 28 mmHg, mild AR, mild [place] tele: sinus, PACs 73F h/o cardiomyopathy with mild systolic dysfunction, CAD s/p stent, HTN, HLD, multiple myeloma p/w chest pain, sob, lower ext edema chest pain, acute systolic CHF exac - on IV lasix 40 mg daily - BNP >7900, similar to prior values, has mild JVD, dyspnea and edema have improved since admission - cont losartan, metoprolol - BPs consistent with baseline - treated with IV lasix 40 mg daily. held 01/30 for worsening renal fxn. - 01/31-2: mild JVD suspected, otherwise euvolemic. cont holding lasix for now in light of renal fxn and underlying myeloma--observe DEBBIE: - creatinine rising past several days, though bun is falling - nephrotic range proteinuria - renal following. lasix held 01/30 CAD - no signs of acute ischemia here - cont aspirin, statin, plavix, bb mult myeloma, anemia - onc folllowing
[2019-02-01 10:05] LABS: ANION GAP 8 MMOL/L (8-16); BLOOD UREA NITROGEN 15 mg/dL (7-18); CALCIUM 7.6 mg/dL (8.5-10.1); CHLORIDE 113 mmol/L (98-107); CO2 19 mmol/L (21-32); CREATININE 1.1 mg/dL (0.55-1.3); GLUCOSE,RANDOM 117 mg/dL (74-106); POTASSIUM 3.2 mmol/L (3.5-5.1); SODIUM 140 mmol/L (136-145)
[2019-02-01] MEDS ORDERED: POTASSIUM CHLORIDE TABS 20 MEQ TABLET.ER (FP) PO ONE (13:17)
--- NOTE | 2019-02-01 13:17 | PN ---
Progress Note, Physician History of Present Illness: Pt seen and examined at bedside. She is awake and alert. She denies shortness of breath. - Current Medication List Current Medications: Active Medications Acetaminophen (Tylenol -) 650 mg PO Q6H PRN PRN Reason: PAIN LEVEL 1-5 Last Admin: 01/30/19 21:22 Dose: 650 mg Albuterol/Ipratropium (Duoneb -) 1 amp NEB Q6H PRN PRN Reason: SHORTNESS OF BREATH Last Admin: 01/29/19 08:39 Dose: 1 amp Aspirin (Asa -) 81 mg PO DAILY [facility] Last Admin: 01/31/19 09:55 Dose: 81 mg Clopidogrel Bisulfate (Plavix -) 75 mg PO DAILY [facility] Last Admin: 01/31/19 09:55 Dose: 75 mg Heparin Sodium (Porcine) (Heparin -) 5,000 unit SQ BID [facility] Last Admin: 01/31/19 21:44 Dose: 5,000 unit Sodium Chloride (Normal Saline -) 1,000 mls @ 42 mls/hr IV ASDIR [facility] Levothyroxine Sodium (Synthroid -) 50 mcg PO DAILY@0700 [facility] Last Admin: 02/01/19 06:38 Dose: 50 mcg Metoprolol Succinate (Toprol Xl -) 12.5 mg PO DAILY [facility] Last Admin: 01/31/19 09:55 Dose: 12.5 mg Pantoprazole Sodium (Protonix -) 40 mg PO DAILY [facility] Last Admin: 01/31/19 09:55 Dose: 40 mg Potassium Chloride (K-Dur -) 10 meq PO DAILY [facility] Last Admin: 01/31/19 09:55 Dose: 10 meq Prochlorperazine Maleate (Compazine -) 10 mg PO Q6H PRN PRN Reason: NAUSEA Valacyclovir HCl (Valtrex -) 500 mg PO DAILY [facility] Last Admin: 01/31/19 09:55 Dose: 500 mg - Objective Vital Signs: Vital Signs Temperature 99.3 F 02/01/19 10:00 Pulse Rate 93 H 02/01/19 10:00 Respiratory Rate 17 02/01/19 10:00 Blood Pressure 96/45 L 02/01/19 10:00 O2 Sat by Pulse Oximetry (%) 100 01/31/19 21:00 Constitutional: Yes: Calm Eyes: Yes: Conjunctiva Clear HENT: Yes: Atraumatic Cardiovascular: Yes: S1, S2 Respiratory: Yes: CTA Bilaterally Gastrointestinal: Yes: Soft Genitourinary: Yes: WNL Musculoskeletal: Yes: WNL Edema: No Neurological: Yes: Oriented Psychiatric: Yes: Oriented Labs: CBC, BMP 01/31/19 05:30 02/01/19 09:29 INR, PTT INR 1.03 (0.83-1.09) 01/28/19 19:55 Assessment/Plan Current Medications Generic Name Dose Route Start Last Admin Trade Name Freq PRN Reason Stop Dose Admin Acetaminophen 650 mg 01/28/19 23:59 01/30/19 21:22 Tylenol - PO 650 mg Q6H PRN Administration PAIN LEVEL 1-5 Albuterol/Ipratropium 1 amp 01/28/19 23:59 01/29/19 08:39 Duoneb - NEB 1 amp Q6H PRN Administration SHORTNESS OF BREATH Aspirin 81 mg 01/29/19 10:00 01/31/19 09:55 Asa - PO 81 mg DAILY [facility] Administration Clopidogrel Bisulfate 75 mg 01/29/19 10:00 01/31/19 09:55 Plavix - PO 75 mg DAILY [facility] Administration Heparin Sodium (Porcine) 5,000 unit 01/29/19 10:00 01/31/19 21:44 Heparin - SQ 5,000 unit BID [facility] Administration Sodium Chloride 1,000 mls @ 42 mls/hr 01/31/19 20:00 Normal Saline - IV ASDIR [facility] Levothyroxine Sodium 50 mcg 01/29/19 07:00 02/01/19 06:38 Synthroid - PO 50 mcg DAILY@0700 [facility] Administration Metoprolol Succinate 12.5 mg 01/29/19 10:00 01/31/19 09:55 Toprol Xl - PO 12.5 mg DAILY [facility] Administration Pantoprazole Sodium 40 mg 01/29/19 10:00 01/31/19 09:55 Protonix - PO 40 mg DAILY [facility] Administration Potassium Chloride 10 meq 01/29/19 10:00 01/31/19 09:55 K-Dur - PO 10 meq DAILY [facility] Administration Prochlorperazine Maleate 10 mg 01/28/19 23:59 Compazine - PO Q6H PRN NAUSEA Valacyclovir HCl 500 mg 01/29/19 10:00 01/31/19 09:55 Valtrex - PO 500 mg DAILY [facility] Administration Laboratory Tests 01/31/19 01/31/19 10:38 10:38 Urine Protein 4+ H U Random Total Protein 1031.9 H Urine Creatinine 91.0 Impression 1. proteinuria 2. multiple myeloma 3. amyloid 4. dizziness 5. hypotension 6. HLD 7. hypothyroidism 8. anemia 9. CKD 10. hypercalcemia Plan - can stop fluids - replace potassium - hold lasix - pt still with proteinuria - pt not tolerating arb
[2019-02-01] MEDS: HEPARIN NA (PORCINE) 5,000 UNITS/ML 1ML VIAL SQ SCH ×2 (13:36→22:19)
[2019-02-01] MEDS: ASPIRIN 81 MG CHEWABLE TABLETS PO SCH (13:36)
[2019-02-01] MEDS: CLOPIDOGREL BISULFATE 75 MG TABLET (FP) PO SCH (13:37)
[2019-02-01] MEDS: metoPROLOL SUCCINATE 25 MG TAB.SR.24H (FP) PO SCH (13:37)
[2019-02-01] MEDS: PANTOPRAZOLE 40 MG TABLET (FP) PO SCH (13:37)
[2019-02-01] MEDS: POTASSIUM CHLORIDE TABS 10 MEQ TABLET.ER (FP) PO SCH (13:37)
[2019-02-01] MEDS: valACYclovir HCL 500 MG TABLET (FP) PO SCH (13:38)
[2019-02-01] MEDS ORDERED: FUROSEMIDE 40 MG/4 ML INJECTABLE VIAL ONE (23:01)
[2019-02-01] MEDS ORDERED: MORPHINE SULFATE 2 MG/ML VIAL ONE (23:01)
--- NOTE | 2019-02-01 23:05 | PN ---
Progress Note (short form) - Note Progress Note: Paged for Pt. having severe chest pain and shortness of breath. Pt having audible crackles in respirations. HR: 83; RR: 25; 164/92 SpO2: 96%. On PE: Pt. was anxious, unable to lie flat, lungs had diffuse crackles, Heart was in regular rate and rhythm, nml S1, S2, lower extremity had trace edema. 40mg IV Lasix, EKG (no changes compared to prior), Troponins and CXR ordered. IVF were discontinued. We believed that the Pt. was volume overloaded and would benefit from increased diuresis at this point. On chart review Lasix was not given today and was held on 01/30. Losartan was held because of rising Cr. Pt.s HR continues to be tachycardic to 130s however downtrending to 120s in sinus rhythm. Call made to Shift Leader by covering nurse and case was discussed. Would reccommend continuing Lasix despite small increases in creatinine, monitoring for good response to Lasix (may need to add potassium sparing diuretic for augmentation of loop diuretic effect), and avoiding fluids.
[2019-02-01] MEDS ORDERED: FUROSEMIDE 40 MG/4 ML INJECTABLE VIAL IVPUSH ONE (23:15)
[2019-02-01] MEDS ORDERED: MORPHINE SULFATE 2 MG/ML VIAL IVPUSH ONE (23:15)
[2019-02-01] MEDS ORDERED: METOPROLOL TARTRATE 5 MG/5 ML VIAL IVPUSH ONE (23:26)
--- NOTE | 2019-02-01 23:49 | PN ---
Progress Note, Physician History of Present Illness: No new complaints - Current Medication List Current Medications: Active Medications Acetaminophen (Tylenol -) 650 mg PO Q6H PRN PRN Reason: PAIN LEVEL 1-5 Last Admin: 01/30/19 21:22 Dose: 650 mg Albuterol/Ipratropium (Duoneb -) 1 amp NEB Q6H PRN PRN Reason: SHORTNESS OF BREATH Last Admin: 01/29/19 08:39 Dose: 1 amp Aspirin (Asa -) 81 mg PO DAILY [facility] Last Admin: 02/01/19 13:36 Dose: 81 mg Clopidogrel Bisulfate (Plavix -) 75 mg PO DAILY [facility] Last Admin: 02/01/19 13:37 Dose: 75 mg Heparin Sodium (Porcine) (Heparin -) 5,000 unit SQ BID [facility] Last Admin: 02/01/19 22:19 Dose: 5,000 unit Levothyroxine Sodium (Synthroid -) 50 mcg PO DAILY@0700 [facility] Last Admin: 02/01/19 06:38 Dose: 50 mcg Metoprolol Succinate (Toprol Xl -) 12.5 mg PO DAILY [facility] Last Admin: 02/01/19 13:37 Dose: 12.5 mg Pantoprazole Sodium (Protonix -) 40 mg PO DAILY [facility] Last Admin: 02/01/19 13:37 Dose: 40 mg Potassium Chloride (K-Dur -) 10 meq PO DAILY [facility] Last Admin: 02/01/19 13:37 Dose: 10 meq Prochlorperazine Maleate (Compazine -) 10 mg PO Q6H PRN PRN Reason: NAUSEA Valacyclovir HCl (Valtrex -) 500 mg PO DAILY [facility] Last Admin: 02/01/19 13:38 Dose: 500 mg - Objective Vital Signs: Vital Signs Temperature 98.2 F 02/01/19 23:19 Pulse Rate 130 H 02/01/19 23:19 Respiratory Rate 24 H 02/01/19 23:19 Blood Pressure 164/93 02/01/19 23:19 O2 Sat by Pulse Oximetry (%) 99 02/01/19 20:45 Neck: Yes: WNL, Supple Cardiovascular: Yes: WNL, Regular Rate and Rhythm Respiratory: Yes: WNL, Regular, CTA Bilaterally Gastrointestinal: Yes: WNL, Normal Bowel Sounds, Soft Labs: CBC, BMP 01/31/19 05:30 02/01/19 09:29 INR, PTT INR 1.03 (0.83-1.09) 01/28/19 19:55 Problem List - Problems (1) Acute on chronic systolic CHF (congestive heart failure) Assessment/Plan: Lasic on hold Pt w/ episodes of hypotension Code(s): I50.23 - ACUTE ON CHRONIC SYSTOLIC (CONGESTIVE) HEART FAILURE (2) Multiple myeloma Assessment/Plan: As per onco Code(s): C90.00 - MULTIPLE MYELOMA NOT HAVING ACHIEVED REMISSION Qualifiers: Multiple myeloma remission status: unspecified Qualified Code(s): C90.00 - Multiple myeloma not having achieved remission (3) CAD (coronary artery disease) Code(s): I25.10 - ATHSCL HEART DISEASE OF [place] CORONARY ARTERY W/O ANG PCTRS Qualifiers: Coronary Disease-Associated Artery/Lesion type: unspecified vessel or lesion type [place] vs. transplanted heart: unspecified whether [place] or transplanted heart Associated angina: with unspecified angina Qualified Code (s): I25.119 - Atherosclerotic heart disease of [place] coronary artery with unspecified angina pectoris (4) HTN (hypertension) Code(s): I10 - ESSENTIAL (PRIMARY) HYPERTENSION Qualifiers: Hypertension type: unspecified Qualified Code(s): I10 - Essential (primary ) hypertension (5) Anemia Code(s): D64.9 - ANEMIA, UNSPECIFIED (6) CKD (chronic kidney disease) Code(s): N18.9 - CHRONIC KIDNEY DISEASE, UNSPECIFIED (7) Elevated troponin Code(s): R74.8 - ABNORMAL LEVELS OF OTHER SERUM ENZYMES
[2019-02-02 06:39] LABS: BASO % 0.3 % (0-2.0); EOS % 0.2 % (0-4.5); HEMATOCRIT 26.4 % (32.4-45.2); HEMOGLOBIN 8.8 GM/dL (10.7-15.3); LYMPH % 17.8 % (8-40); MCH 31.3 pg (25.7-33.7); MCHC 33.5 g/dl (32.0-36.0); MEAN CELL VOLUME 93.4 fl (80-96); MEAN PLT VOLUME 9.2 fl (7.5-11.1); NEUT % 73.7 % (42.8-82.8); PLATELET COUNT 155 K/MM3 (134-434); RBC 2.83 M/mm3 (3.60-5.2); RDW 20.4 % (11.6-15.6); WHITE BLOOD COUNT 7.3 K/mm3 (4.0-10.0)
[2019-02-02 07:06] LABS: ALBUMIN 1.5 g/dl (3.4-5.0); ALK PHOS 52 U/L (45-117); ANION GAP 7 MMOL/L (8-16); BILIRUBIN,TOTAL 0.4 mg/dL (0.2-1); BLOOD UREA NITROGEN 16 mg/dL (7-18); CHLORIDE 111 mmol/L (98-107); CO2 20 mmol/L (21-32); GLUCOSE,RANDOM 113 mg/dL (74-106); POTASSIUM 4.4 mmol/L (3.5-5.1); SGOT/AST 13 U/L (15-37); SGPT/ALT 14 U/L (13-61); SODIUM 138 mmol/L (136-145); TOT PROT 8.5 g/dl (6.4-8.2)
[2019-02-02] MEDS: LEVOTHYROXINE NA 50 MCG TABLET (FP) PO SCH (07:09)
[2019-02-02] MEDS ORDERED: PT OWN MED DRAWER 7, Y5N ONE (09:19)
[2019-02-02] MEDS: metoPROLOL SUCCINATE 25 MG TAB.SR.24H (FP) PO SCH (09:20)
[2019-02-02] MEDS: ASPIRIN 81 MG CHEWABLE TABLETS PO SCH (09:21)
[2019-02-02] MEDS: PANTOPRAZOLE 40 MG TABLET (FP) PO SCH (09:21)
[2019-02-02] MEDS: CLOPIDOGREL BISULFATE 75 MG TABLET (FP) PO SCH (09:21)
[2019-02-02] MEDS: POTASSIUM CHLORIDE TABS 10 MEQ TABLET.ER (FP) PO SCH (09:21)
[2019-02-02] MEDS: HEPARIN NA (PORCINE) 5,000 UNITS/ML 1ML VIAL SQ SCH ×2 (09:21→21:53)
--- NOTE | 2019-02-02 09:21 | PN ---
Progress Note (short form) - Note Progress Note: Chief Complaint: sob History of Present Illness: sob overnight with crackles on exam, IVF stopped and was given furosemide 40 mg IV x 1. feels better this AM but still short of breath no cigs Current Medications Acetaminophen (Tylenol -) 650 mg PO Q6H PRN PRN Reason: PAIN LEVEL 1-5 Last Admin: 01/30/19 21:22 Dose: 650 mg Albuterol/Ipratropium (Duoneb -) 1 amp NEB Q6H PRN PRN Reason: SHORTNESS OF BREATH Last Admin: 01/29/19 08:39 Dose: 1 amp Aspirin (Asa -) 81 mg PO DAILY [facility] Last Admin: 02/01/19 13:36 Dose: 81 mg Clopidogrel Bisulfate (Plavix -) 75 mg PO DAILY [facility] Last Admin: 02/01/19 13:37 Dose: 75 mg Heparin Sodium (Porcine) (Heparin -) 5,000 unit SQ BID [facility] Last Admin: 02/01/19 22:19 Dose: 5,000 unit Levothyroxine Sodium (Synthroid -) 50 mcg PO DAILY@0700 [facility] Last Admin: 02/02/19 07:09 Dose: 50 mcg Metoprolol Succinate (Toprol Xl -) 12.5 mg PO DAILY [facility] Last Admin: 02/01/19 13:37 Dose: 12.5 mg Pantoprazole Sodium (Protonix -) 40 mg PO DAILY [facility] Last Admin: 02/01/19 13:37 Dose: 40 mg Potassium Chloride (K-Dur -) 10 meq PO DAILY [facility] Last Admin: 02/01/19 13:37 Dose: 10 meq Prochlorperazine Maleate (Compazine -) 10 mg PO Q6H PRN PRN Reason: NAUSEA Valacyclovir HCl (Valtrex -) 500 mg PO DAILY [facility] Last Admin: 02/01/19 13:38 Dose: 500 mg - Objective Vital Signs Period Temp Pulse Resp BP Sys/Moss Pulse Ox Last 24 Hr 98.0 F-99.3 F 86-130 17-24 96-164/45-93 99 Constitutional: Yes: Well Nourished, No Distress, Calm Cardiovascular: Yes: Regular Rate and Rhythm, JVD (mild), S1, S2. No: Gallop, Murmur Respiratory: Yes: Regular, +rales. No: Accessory Muscle Use, Wheezes Extremities: No: Cold Edema: No Neurological: Yes: Alert. No: Seizure Psychiatric: No: Agitated Assessment/Plan EKG: sinus, nonspecific ST changes, unchanged from prior CXR: no acute process echo 12/2018 mildly reduced LV function, apical septal mild hypokinesis, basal anteroseptal mild hypokinesis, mid anteroseptal mild hypokinesis, septal wall mild hypokinesis, nl RV, grade II diastolic dysfunction, LA mildly dilated, mild MR, mild TR, PASP at least 28 mmHg, mild AR, mild [place] tele: sinus, PACs 73F h/o cardiomyopathy with mild systolic dysfunction, CAD s/p stent, HTN, HLD, multiple myeloma p/w chest pain, sob, lower ext edema chest pain, acute systolic CHF exac - on IV lasix 40 mg daily - BNP >7900, similar to prior values, has mild JVD, dyspnea and edema have improved since admission - cont losartan, metoprolol - BPs consistent with baseline - treated with IV lasix 40 mg daily. held 01/30 for worsening renal fxn. - 01/31-2: mild JVD suspected, otherwise euvolemic. cont holding lasix for now in light of renal fxn and underlying myeloma--observe - 02/02 received IV lasix overnight for dyspnea, CXR with congestive changes with rales on exam. will give additional lasix dose now DEBBIE: - creatinine rising past several days, though bun is falling - nephrotic range proteinuria - renal following. CAD - no signs of acute ischemia here - cont aspirin, statin, plavix, bb mult myeloma, anemia - onc folllowing
[2019-02-02] MEDS ORDERED: FUROSEMIDE 40 MG/4 ML INJECTABLE VIAL IVPUSH ONE (10:12)
[2019-02-02] MEDS: valACYclovir HCL 500 MG TABLET (FP) PO SCH (10:39)
--- NOTE | 2019-02-02 11:57 | PN ---
Progress Note, Physician History of Present Illness: Pt seen and examined at bedside. She is awake and alert. She was short of breath last night and required lasix. She has been off of fluids. - Current Medication List Current Medications: Active Medications Acetaminophen (Tylenol -) 650 mg PO Q6H PRN PRN Reason: PAIN LEVEL 1-5 Last Admin: 01/30/19 21:22 Dose: 650 mg Albuterol/Ipratropium (Duoneb -) 1 amp NEB Q6H PRN PRN Reason: SHORTNESS OF BREATH Last Admin: 01/29/19 08:39 Dose: 1 amp Aspirin (Asa -) 81 mg PO DAILY [facility] Last Admin: 02/02/19 09:21 Dose: 81 mg Clopidogrel Bisulfate (Plavix -) 75 mg PO DAILY [facility] Last Admin: 02/02/19 09:21 Dose: 75 mg Heparin Sodium (Porcine) (Heparin -) 5,000 unit SQ BID [facility] Last Admin: 02/02/19 09:21 Dose: 5,000 unit Levothyroxine Sodium (Synthroid -) 50 mcg PO DAILY@0700 [facility] Last Admin: 02/02/19 07:09 Dose: 50 mcg Metoprolol Succinate (Toprol Xl -) 12.5 mg PO DAILY [facility] Last Admin: 02/02/19 09:20 Dose: 12.5 mg Pantoprazole Sodium (Protonix -) 40 mg PO DAILY [facility] Last Admin: 02/02/19 09:21 Dose: 40 mg Potassium Chloride (K-Dur -) 10 meq PO DAILY [facility] Last Admin: 02/02/19 09:21 Dose: 10 meq Prochlorperazine Maleate (Compazine -) 10 mg PO Q6H PRN PRN Reason: NAUSEA Valacyclovir HCl (Valtrex -) 500 mg PO DAILY [facility] Last Admin: 02/02/19 10:39 Dose: 500 mg - Objective Vital Signs: Vital Signs Temperature 98.3 F 02/02/19 06:00 Pulse Rate 95 H 02/02/19 06:00 Respiratory Rate 20 02/02/19 06:00 Blood Pressure 119/68 02/02/19 06:00 O2 Sat by Pulse Oximetry (%) 99 02/01/19 20:45 Constitutional: Yes: Calm Eyes: Yes: Conjunctiva Clear HENT: Yes: Atraumatic Neck: Yes: Supple Cardiovascular: Yes: S1, S2 Respiratory: Yes: On Nasal O2, Rhonchi Gastrointestinal: Yes: Soft Genitourinary: Yes: WNL Musculoskeletal: Yes: WNL Edema: No Neurological: Yes: Oriented Psychiatric: Yes: Oriented Labs: CBC, BMP 02/02/19 05:30 02/02/19 05:30 INR, PTT INR 1.03 (0.83-1.09) 01/28/19 19:55 Assessment/Plan Current Medications Generic Name Dose Route Start Last Admin Trade Name Freq PRN Reason Stop Dose Admin Acetaminophen 650 mg 01/28/19 23:59 01/30/19 21:22 Tylenol - PO 650 mg Q6H PRN Administration PAIN LEVEL 1-5 Albuterol/Ipratropium 1 amp 01/28/19 23:59 01/29/19 08:39 Duoneb - NEB 1 amp Q6H PRN Administration SHORTNESS OF BREATH Aspirin 81 mg 01/29/19 10:00 02/02/19 09:21 Asa - PO 81 mg DAILY [facility] Administration Clopidogrel Bisulfate 75 mg 01/29/19 10:00 02/02/19 09:21 Plavix - PO 75 mg DAILY [facility] Administration Heparin Sodium (Porcine) 5,000 unit 01/29/19 10:00 02/02/19 09:21 Heparin - SQ 5,000 unit BID [facility] Administration Levothyroxine Sodium 50 mcg 01/29/19 07:00 02/02/19 07:09 Synthroid - PO 50 mcg DAILY@0700 [facility] Administration Metoprolol Succinate 12.5 mg 01/29/19 10:00 02/02/19 09:20 Toprol Xl - PO 12.5 mg DAILY [facility] Administration Pantoprazole Sodium 40 mg 01/29/19 10:00 02/02/19 09:21 Protonix - PO 40 mg DAILY [facility] Administration Potassium Chloride 10 meq 01/29/19 10:00 02/02/19 09:21 K-Dur - PO 10 meq DAILY [facility] Administration Prochlorperazine Maleate 10 mg 01/28/19 23:59 Compazine - PO Q6H PRN NAUSEA Valacyclovir HCl 500 mg 01/29/19 10:00 02/02/19 10:39 Valtrex - PO 500 mg DAILY [facility] Administration Impression 1. proteinuria 2. multiple myeloma 3. amyloid 4. dizziness 5. hypotension 6. HLD 7. hypothyroidism 8. anemia 9. CKD 10. hypercalcemia Plan - cont with lasix, she did get a dose today - repeat labs in am - evaluate for lasix again tomorrow - volume status has been difficult to control
--- NOTE | 2019-02-02 13:56 | PN ---
Progress Note (short form) - Note Progress Note: Patient seen and examined Chest pain and SOB last night Given lasix with improvement No chest pain currently Last Vital Signs Temp Pulse Resp BP Pulse Ox 99.5 F 95 H 20 91/51 L 99 02/02/19 13:22 02/02/19 13:22 02/02/19 13:22 02/02/19 13:22 02/01/19 20:45 HEENT: ZOILA, EOM Intact Oropharynx: No thrush, No mucositis Cor: RSR, No murmurs, No gallops Lungs: rales basees Abd: Soft, Normal bowel sounds, No organomegaly Ext:No significant edema Skin: No rashes, Integument intact CBC, BMP 02/02/19 05:30 02/02/19 05:30 Current Medications Generic Name Dose Route Start Last Admin Trade Name Freq PRN Reason Stop Dose Admin Acetaminophen 650 mg 01/28/19 23:59 01/30/19 21:22 Tylenol - PO 650 mg Q6H PRN Administration PAIN LEVEL 1-5 Albuterol/Ipratropium 1 amp 01/28/19 23:59 01/29/19 08:39 Duoneb - NEB 1 amp Q6H PRN Administration SHORTNESS OF BREATH Aspirin 81 mg 01/29/19 10:00 02/02/19 09:21 Asa - PO 81 mg DAILY [facility] Administration Clopidogrel Bisulfate 75 mg 01/29/19 10:00 02/02/19 09:21 Plavix - PO 75 mg DAILY [facility] Administration Heparin Sodium (Porcine) 5,000 unit 01/29/19 10:00 02/02/19 09:21 Heparin - SQ 5,000 unit BID [facility] Administration Levothyroxine Sodium 50 mcg 01/29/19 07:00 02/02/19 07:09 Synthroid - PO 50 mcg DAILY@0700 [facility] Administration Metoprolol Succinate 12.5 mg 01/29/19 10:00 02/02/19 09:20 Toprol Xl - PO 12.5 mg DAILY [facility] Administration Pantoprazole Sodium 40 mg 01/29/19 10:00 02/02/19 09:21 Protonix - PO 40 mg DAILY [facility] Administration Potassium Chloride 10 meq 01/29/19 10:00 02/02/19 09:21 K-Dur - PO 10 meq DAILY [facility] Administration Prochlorperazine Maleate 10 mg 01/28/19 23:59 Compazine - PO Q6H PRN NAUSEA Valacyclovir HCl 500 mg 01/29/19 10:00 02/02/19 10:39 Valtrex - PO 500 mg DAILY [facility] Administration Impression: Myeloma Amyloid Proteinuria secondary to dysprotenemia Fluid overload Anemia Per ICU team- diuresis myeloma/amyloid therapy in future Monitor CBC
[2019-02-02 20:28] LABS: RATIO URIN PROTEIN/URIN CREAT 10.53 MG/DL
--- NOTE | 2019-02-02 23:12 | PN ---
Progress Note, Physician History of Present Illness: Pt still w/ some SOB - Current Medication List Current Medications: Active Medications Acetaminophen (Tylenol -) 650 mg PO Q6H PRN PRN Reason: PAIN LEVEL 1-5 Last Admin: 01/30/19 21:22 Dose: 650 mg Albuterol/Ipratropium (Duoneb -) 1 amp NEB Q6H PRN PRN Reason: SHORTNESS OF BREATH Last Admin: 01/29/19 08:39 Dose: 1 amp Aspirin (Asa -) 81 mg PO DAILY [facility] Last Admin: 02/02/19 09:21 Dose: 81 mg Clopidogrel Bisulfate (Plavix -) 75 mg PO DAILY [facility] Last Admin: 02/02/19 09:21 Dose: 75 mg Heparin Sodium (Porcine) (Heparin -) 5,000 unit SQ BID [facility] Last Admin: 02/02/19 21:53 Dose: 5,000 unit Levothyroxine Sodium (Synthroid -) 50 mcg PO DAILY@0700 [facility] Last Admin: 02/02/19 07:09 Dose: 50 mcg Metoprolol Succinate (Toprol Xl -) 12.5 mg PO DAILY [facility] Last Admin: 02/02/19 09:20 Dose: 12.5 mg Pantoprazole Sodium (Protonix -) 40 mg PO DAILY [facility] Last Admin: 02/02/19 09:21 Dose: 40 mg Potassium Chloride (K-Dur -) 10 meq PO DAILY [facility] Last Admin: 02/02/19 09:21 Dose: 10 meq Prochlorperazine Maleate (Compazine -) 10 mg PO Q6H PRN PRN Reason: NAUSEA Valacyclovir HCl (Valtrex -) 500 mg PO DAILY [facility] Last Admin: 02/02/19 10:39 Dose: 500 mg - Objective Vital Signs: Vital Signs Temperature 98.6 F 02/02/19 22:49 Pulse Rate 98 H 02/02/19 22:49 Respiratory Rate 21 H 02/02/19 22:49 Blood Pressure 110/64 02/02/19 22:49 O2 Sat by Pulse Oximetry (%) 99 02/02/19 09:00 Cardiovascular: Yes: WNL, Regular Rate and Rhythm Respiratory: Yes: Diminished Gastrointestinal: Yes: WNL, Normal Bowel Sounds, Soft Edema: No Labs: CBC, BMP 02/02/19 05:30 02/02/19 05:30 INR, PTT INR 1.03 (0.83-1.09) 01/28/19 19:55 Problem List - Problems (1) Acute on chronic systolic CHF (congestive heart failure) Code(s): I50.23 - ACUTE ON CHRONIC SYSTOLIC (CONGESTIVE) HEART FAILURE (2) Multiple myeloma Code(s): C90.00 - MULTIPLE MYELOMA NOT HAVING ACHIEVED REMISSION Qualifiers: Multiple myeloma remission status: unspecified Qualified Code(s): C90.00 - Multiple myeloma not having achieved remission (3) CAD (coronary artery disease) Code(s): I25.10 - ATHSCL HEART DISEASE OF [place] CORONARY ARTERY W/O ANG PCTRS Qualifiers: Coronary Disease-Associated Artery/Lesion type: unspecified vessel or lesion type [place] vs. transplanted heart: unspecified whether [place] or transplanted heart Associated angina: with unspecified angina Qualified Code (s): I25.119 - Atherosclerotic heart disease of [place] coronary artery with unspecified angina pectoris (4) HTN (hypertension) Code(s): I10 - ESSENTIAL (PRIMARY) HYPERTENSION Qualifiers: Hypertension type: unspecified Qualified Code(s): I10 - Essential (primary ) hypertension (5) Anemia Code(s): D64.9 - ANEMIA, UNSPECIFIED (6) CKD (chronic kidney disease) Code(s): N18.9 - CHRONIC KIDNEY DISEASE, UNSPECIFIED (7) Elevated troponin Code(s): R74.8 - ABNORMAL LEVELS OF OTHER SERUM ENZYMES
[2019-02-03] MEDS: ACETAMINOPHEN 325 MG TABLET (FP) PO PRN (02:43)
[2019-02-03] MEDS: LEVOTHYROXINE NA 50 MCG TABLET (FP) PO SCH (06:32)
[2019-02-03 06:59] LABS: ANION GAP 10 MMOL/L (8-16); BLOOD UREA NITROGEN 17 mg/dL (7-18); CALCIUM 7.3 mg/dL (8.5-10.1); CHLORIDE 110 mmol/L (98-107); CO2 19 mmol/L (21-32); GLUCOSE,RANDOM 91 mg/dL (74-106); SODIUM 139 mmol/L (136-145)
--- NOTE | 2019-02-03 10:33 | PN ---
Progress Note (short form) - Note Progress Note: s: feeling well. no cp sob palps dizzy o: Vital Signs Period Temp Pulse Resp BP Sys/Moss Pulse Ox Last 24 Hr 98.2 F-100.2 F 89-102 20-22 91-116/51-64 99 Constitutional: Yes: Well Nourished, No Distress, Calm Cardiovascular: Yes: Regular Rate and Rhythm, JVD (mild), S1, S2. No: Gallop, Murmur Respiratory: Yes: Regular, +rales. No: Accessory Muscle Use, Wheezes Extremities: No: Cold Edema: No Neurological: Yes: Alert. No: Seizure Psychiatric: No: Agitated no jaundice diaphoresis Current Medications Generic Name Dose Route Start Last Admin Trade Name Freq PRN Reason Stop Dose Admin Acetaminophen 650 mg 01/28/19 23:59 02/03/19 02:43 Tylenol - PO 650 mg Q6H PRN Administration PAIN LEVEL 1-5 Aspirin 81 mg 01/29/19 10:00 02/02/19 09:21 Asa - PO 81 mg DAILY [facility] Administration Clopidogrel Bisulfate 75 mg 01/29/19 10:00 02/02/19 09:21 Plavix - PO 75 mg DAILY [facility] Administration Furosemide 40 mg 02/03/19 10:30 Lasix - PO DAILY [facility] Heparin Sodium (Porcine) 5,000 unit 01/29/19 10:00 02/02/19 21:53 Heparin - SQ 5,000 unit BID [facility] Administration Levothyroxine Sodium 50 mcg 01/29/19 07:00 02/03/19 06:32 Synthroid - PO 50 mcg DAILY@0700 [facility] Administration Metoprolol Succinate 12.5 mg 01/29/19 10:00 02/02/19 09:20 Toprol Xl - PO 12.5 mg DAILY [facility] Administration Pantoprazole Sodium 40 mg 01/29/19 10:00 02/02/19 09:21 Protonix - PO 40 mg DAILY [facility] Administration Potassium Chloride 10 meq 01/29/19 10:00 02/02/19 09:21 K-Dur - PO 10 meq DAILY [facility] Administration Prochlorperazine Maleate 10 mg 01/28/19 23:59 Compazine - PO Q6H PRN NAUSEA Valacyclovir HCl 500 mg 01/29/19 10:00 02/02/19 10:39 Valtrex - PO 500 mg DAILY [facility] Administration CBC, BMP 02/02/19 05:30 02/03/19 05:30 Assessment/Plan EKG: sinus, nonspecific ST changes, unchanged from prior CXR: no acute process echo 12/2018 mildly reduced LV function, apical septal mild hypokinesis, basal anteroseptal mild hypokinesis, mid anteroseptal mild hypokinesis, septal wall mild hypokinesis, nl RV, grade II diastolic dysfunction, LA mildly dilated, mild MR, mild TR, PASP at least 28 mmHg, mild AR, mild [place] tele: sinus 73F h/o cardiomyopathy with mild systolic dysfunction, CAD s/p stent, HTN, HLD, multiple myeloma p/w chest pain, sob, lower ext edema chest pain, acute systolic CHF exac - on IV lasix 40 mg daily - BNP >7900, similar to prior values, has mild JVD, dyspnea and edema have improved since admission - cont losartan, metoprolol - BPs consistent with baseline - treated with IV lasix 40 mg daily. held 01/30 for worsening renal fxn. - 01/31-2: mild JVD suspected, otherwise euvolemic. cont holding lasix for now in light of renal fxn and underlying myeloma--observe - 02/02 received IV lasix overnight for dyspnea, CXR with congestive changes with rales on exam. will give additional lasix dose now -02/03 pulm congestion improved, will resume po lasix 40 qd for maintenance DEBBIE: -cr improved -renal following CAD - no signs of acute ischemia here - cont aspirin, statin, plavix, bb mult myeloma, anemia - onc following
[2019-02-03] MEDS ORDERED: PT OWN MED DRAWER 7, Y5N ONE (10:44)
[2019-02-03] MEDS: ASPIRIN 81 MG CHEWABLE TABLETS PO SCH (10:46)
[2019-02-03] MEDS: CLOPIDOGREL BISULFATE 75 MG TABLET (FP) PO SCH (10:47)
[2019-02-03] MEDS: metoPROLOL SUCCINATE 25 MG TAB.SR.24H (FP) PO SCH (10:47)
[2019-02-03] MEDS: POTASSIUM CHLORIDE TABS 10 MEQ TABLET.ER (FP) PO SCH (10:47)
[2019-02-03] MEDS: valACYclovir HCL 500 MG TABLET (FP) PO SCH (10:48)
[2019-02-03] MEDS: PANTOPRAZOLE 40 MG TABLET (FP) PO SCH (10:48)
[2019-02-03] MEDS: HEPARIN NA (PORCINE) 5,000 UNITS/ML 1ML VIAL SQ SCH ×2 (10:48→21:21)
[2019-02-03] MEDS: FUROSEMIDE 40 MG TABLET (FP) PO SCH (11:07)
--- NOTE | 2019-02-03 14:04 | PN ---
Progress Note, Physician History of Present Illness: Pt seen and examined at bedside. She is awake and alert. She feels that her breathing is improved. - Current Medication List Current Medications: Active Medications Acetaminophen (Tylenol -) 650 mg PO Q6H PRN PRN Reason: PAIN LEVEL 1-5 Last Admin: 02/03/19 02:43 Dose: 650 mg Aspirin (Asa -) 81 mg PO DAILY [facility] Last Admin: 02/03/19 10:46 Dose: 81 mg Clopidogrel Bisulfate (Plavix -) 75 mg PO DAILY [facility] Last Admin: 02/03/19 10:47 Dose: 75 mg Furosemide (Lasix -) 40 mg PO DAILY [facility] Last Admin: 02/03/19 11:07 Dose: 40 mg Heparin Sodium (Porcine) (Heparin -) 5,000 unit SQ BID [facility] Last Admin: 02/03/19 10:48 Dose: 5,000 unit Levothyroxine Sodium (Synthroid -) 50 mcg PO DAILY@0700 [facility] Last Admin: 02/03/19 06:32 Dose: 50 mcg Metoprolol Succinate (Toprol Xl -) 12.5 mg PO DAILY [facility] Last Admin: 02/03/19 10:47 Dose: 12.5 mg Pantoprazole Sodium (Protonix -) 40 mg PO DAILY [facility] Last Admin: 02/03/19 10:48 Dose: 40 mg Potassium Chloride (K-Dur -) 10 meq PO DAILY [facility] Last Admin: 02/03/19 10:47 Dose: 10 meq Prochlorperazine Maleate (Compazine -) 10 mg PO Q6H PRN PRN Reason: NAUSEA Valacyclovir HCl (Valtrex -) 500 mg PO DAILY [facility] Last Admin: 02/03/19 10:48 Dose: 500 mg - Objective Vital Signs: Vital Signs Temperature 99.1 F 02/03/19 13:52 Pulse Rate 88 02/03/19 13:52 Respiratory Rate 22 H 02/03/19 13:52 Blood Pressure 112/53 L 02/03/19 07:37 O2 Sat by Pulse Oximetry (%) 100 02/03/19 09:00 Constitutional: Yes: Calm Eyes: Yes: Conjunctiva Clear HENT: Yes: Atraumatic Neck: Yes: Supple Cardiovascular: Yes: S1, S2 Respiratory: Yes: CTA Bilaterally Gastrointestinal: Yes: Soft Genitourinary: Yes: WNL Musculoskeletal: Yes: WNL Edema: No Neurological: Yes: Oriented Psychiatric: Yes: Oriented Labs: CBC, BMP 02/02/19 05:30 02/03/19 05:30 INR, PTT INR 1.03 (0.83-1.09) 01/28/19 19:55 Assessment/Plan Current Medications Generic Name Dose Route Start Last Admin Trade Name Freq PRN Reason Stop Dose Admin Acetaminophen 650 mg 01/28/19 23:59 02/03/19 02:43 Tylenol - PO 650 mg Q6H PRN Administration PAIN LEVEL 1-5 Aspirin 81 mg 01/29/19 10:00 02/03/19 10:46 Asa - PO 81 mg DAILY [facility] Administration Clopidogrel Bisulfate 75 mg 01/29/19 10:00 02/03/19 10:47 Plavix - PO 75 mg DAILY [facility] Administration Furosemide 40 mg 02/03/19 11:00 02/03/19 11:07 Lasix - PO 40 mg DAILY [facility] Administration Heparin Sodium (Porcine) 5,000 unit 01/29/19 10:00 02/03/19 10:48 Heparin - SQ 5,000 unit BID [facility] Administration Levothyroxine Sodium 50 mcg 01/29/19 07:00 02/03/19 06:32 Synthroid - PO 50 mcg DAILY@0700 [facility] Administration Metoprolol Succinate 12.5 mg 01/29/19 10:00 02/03/19 10:47 Toprol Xl - PO 12.5 mg DAILY [facility] Administration Pantoprazole Sodium 40 mg 01/29/19 10:00 02/03/19 10:48 Protonix - PO 40 mg DAILY [facility] Administration Potassium Chloride 10 meq 01/29/19 10:00 02/03/19 10:47 K-Dur - PO 10 meq DAILY [facility] Administration Prochlorperazine Maleate 10 mg 01/28/19 23:59 Compazine - PO Q6H PRN NAUSEA Valacyclovir HCl 500 mg 01/29/19 10:00 02/03/19 10:48 Valtrex - PO 500 mg DAILY [facility] Administration Impression 1. proteinuria 2. multiple myeloma 3. amyloid 4. dizziness 5. hypotension 6. HLD 7. hypothyroidism 8. anemia 9. CKD 10. hypercalcemia Plan - agree with PO lasix - volume status improving - cardio input appreciated - unable to restart arb secondary to hypotension - discussed with heme onc Dr Hameed
[2019-02-03] MEDS ORDERED: DEXAMETHASONE 4 MG TABLET (FP) PO ONE (19:30)
--- NOTE | 2019-02-03 20:36 | PN ---
Progress Note (short form) - Note Progress Note: Patient seen and examined feels better afvss Cor: RSR, No murmurs, No gallops Lungs: Clear to P&A Abd: Soft, Normal bowel sounds, No organomegaly Ext:No significant edema labs/meds reviewed a/p 73 y/o patient with myeloma/amyloid, ckd/chf/nephrotic syndrome, s/p coronary stents patient aditted with atypical chestpain/sob suspect component of anxiety may need prbcs in the process of switchinh to revlimid/dex
--- NOTE | 2019-02-03 22:33 | PN ---
Progress Note, Physician History of Present Illness: No new complaints - Current Medication List Current Medications: Active Medications Acetaminophen (Tylenol -) 650 mg PO Q6H PRN PRN Reason: PAIN LEVEL 1-5 Last Admin: 02/03/19 02:43 Dose: 650 mg Aspirin (Asa -) 81 mg PO DAILY [facility] Last Admin: 02/03/19 10:46 Dose: 81 mg Clopidogrel Bisulfate (Plavix -) 75 mg PO DAILY [facility] Last Admin: 02/03/19 10:47 Dose: 75 mg Furosemide (Lasix -) 40 mg PO DAILY [facility] Last Admin: 02/03/19 11:07 Dose: 40 mg Heparin Sodium (Porcine) (Heparin -) 5,000 unit SQ BID [facility] Last Admin: 02/03/19 21:21 Dose: 5,000 unit Levothyroxine Sodium (Synthroid -) 50 mcg PO DAILY@0700 [facility] Last Admin: 02/03/19 06:32 Dose: 50 mcg Metoprolol Succinate (Toprol Xl -) 12.5 mg PO DAILY [facility] Last Admin: 02/03/19 10:47 Dose: 12.5 mg Pantoprazole Sodium (Protonix -) 40 mg PO DAILY [facility] Last Admin: 02/03/19 10:48 Dose: 40 mg Potassium Chloride (K-Dur -) 10 meq PO DAILY [facility] Last Admin: 02/03/19 10:47 Dose: 10 meq Prochlorperazine Maleate (Compazine -) 10 mg PO Q6H PRN PRN Reason: NAUSEA Valacyclovir HCl (Valtrex -) 500 mg PO DAILY [facility] Last Admin: 02/03/19 10:48 Dose: 500 mg - Objective Vital Signs: Vital Signs Temperature 99.5 F 02/03/19 18:30 Pulse Rate 93 H 02/03/19 18:30 Respiratory Rate 22 H 02/03/19 18:30 Blood Pressure 93/52 L 02/03/19 18:30 O2 Sat by Pulse Oximetry (%) 100 02/03/19 09:00 Neck: Yes: WNL, Supple Cardiovascular: Yes: WNL, Regular Rate and Rhythm Respiratory: Yes: WNL, Regular, CTA Bilaterally Gastrointestinal: Yes: WNL, Normal Bowel Sounds, Soft Labs: CBC, BMP 02/02/19 05:30 02/03/19 05:30 INR, PTT INR 1.03 (0.83-1.09) 01/28/19 19:55 Problem List - Problems (1) Acute on chronic systolic CHF (congestive heart failure) Assessment/Plan: Pt given IV lasix due to cxr wc showed some congestion Pt now restarted on po lasix DC planning for am Code(s): I50.23 - ACUTE ON CHRONIC SYSTOLIC (CONGESTIVE) HEART FAILURE (2) Multiple myeloma Assessment/Plan: As per onco Code(s): C90.00 - MULTIPLE MYELOMA NOT HAVING ACHIEVED REMISSION Qualifiers: Multiple myeloma remission status: unspecified Qualified Code(s): C90.00 - Multiple myeloma not having achieved remission (3) CAD (coronary artery disease) Code(s): I25.10 - ATHSCL HEART DISEASE OF [place] CORONARY ARTERY W/O ANG PCTRS Qualifiers: Coronary Disease-Associated Artery/Lesion type: unspecified vessel or lesion type [place] vs. transplanted heart: unspecified whether [place] or transplanted heart Associated angina: with unspecified angina Qualified Code (s): I25.119 - Atherosclerotic heart disease of [place] coronary artery with unspecified angina pectoris (4) HTN (hypertension) Code(s): I10 - ESSENTIAL (PRIMARY) HYPERTENSION Qualifiers: Hypertension type: unspecified Qualified Code(s): I10 - Essential (primary ) hypertension (5) Anemia Code(s): D64.9 - ANEMIA, UNSPECIFIED (6) CKD (chronic kidney disease) Code(s): N18.9 - CHRONIC KIDNEY DISEASE, UNSPECIFIED (7) Elevated troponin Code(s): R74.8 - ABNORMAL LEVELS OF OTHER SERUM ENZYMES
[2019-02-04] MEDS: LEVOTHYROXINE NA 50 MCG TABLET (FP) PO SCH (06:08)
[2019-02-04] MEDS ORDERED: PT OWN MED DRAWER 7, Y5N ONE (09:31)
[2019-02-04] MEDS: CLOPIDOGREL BISULFATE 75 MG TABLET (FP) PO SCH (09:38)
[2019-02-04] MEDS: HEPARIN NA (PORCINE) 5,000 UNITS/ML 1ML VIAL SQ SCH ×2 (09:38→21:38)
[2019-02-04] MEDS: ASPIRIN 81 MG CHEWABLE TABLETS PO SCH (09:38)
[2019-02-04] MEDS: FUROSEMIDE 40 MG TABLET (FP) PO SCH (09:38)
[2019-02-04] MEDS: PANTOPRAZOLE 40 MG TABLET (FP) PO SCH (09:38)
[2019-02-04] MEDS: POTASSIUM CHLORIDE TABS 10 MEQ TABLET.ER (FP) PO SCH (09:38)
[2019-02-04] MEDS: valACYclovir HCL 500 MG TABLET (FP) PO SCH (09:39)
[2019-02-04] MEDS: metoPROLOL SUCCINATE 25 MG TAB.SR.24H (FP) PO SCH (09:39)
--- NOTE | 2019-02-04 10:34 | PN ---
Progress Note (short form) - Note Progress Note: s: feeling well. no cp sob palps dizzy o: Vital Signs Period Temp Pulse Resp BP Sys/Moss Pulse Ox Last 24 Hr 98.0 F-99.9 F 83-102 18-22 93-134/49-88 100-100 Constitutional: Yes: Well Nourished, No Distress, Calm Cardiovascular: Yes: Regular Rate and Rhythm, JVD (mild), S1, S2. No: Gallop, Murmur Respiratory: Yes: Regular, +rales. No: Accessory Muscle Use, Wheezes Extremities: No: Cold Edema: No Neurological: Yes: Alert. No: Seizure Psychiatric: No: Agitated no jaundice diaphoresis Current Medications Generic Name Dose Route Start Last Admin Trade Name Freq PRN Reason Stop Dose Admin Acetaminophen 650 mg 01/28/19 23:59 02/03/19 02:43 Tylenol - PO 650 mg Q6H PRN Administration PAIN LEVEL 1-5 Aspirin 81 mg 01/29/19 10:00 02/04/19 09:38 Asa - PO 81 mg DAILY [facility] Administration Clopidogrel Bisulfate 75 mg 01/29/19 10:00 02/04/19 09:38 Plavix - PO 75 mg DAILY [facility] Administration Furosemide 40 mg 02/03/19 11:00 02/04/19 09:38 Lasix - PO 40 mg DAILY [facility] Administration Heparin Sodium (Porcine) 5,000 unit 01/29/19 10:00 02/04/19 09:38 Heparin - SQ 5,000 unit BID [facility] Administration Levothyroxine Sodium 50 mcg 01/29/19 07:00 02/04/19 06:08 Synthroid - PO 50 mcg DAILY@0700 [facility] Administration Metoprolol Succinate 12.5 mg 01/29/19 10:00 02/04/19 09:39 Toprol Xl - PO 12.5 mg DAILY [facility] Administration Pantoprazole Sodium 40 mg 01/29/19 10:00 02/04/19 09:38 Protonix - PO 40 mg DAILY [facility] Administration Potassium Chloride 10 meq 01/29/19 10:00 02/04/19 09:38 K-Dur - PO 10 meq DAILY [facility] Administration Prochlorperazine Maleate 10 mg 01/28/19 23:59 Compazine - PO Q6H PRN NAUSEA Valacyclovir HCl 500 mg 01/29/19 10:00 02/04/19 09:39 Valtrex - PO 500 mg DAILY [facility] Administration CBC, BMP 02/02/19 05:30 02/03/19 05:30 Assessment/Plan EKG: sinus, nonspecific ST changes, unchanged from prior CXR: no acute process echo 12/2018 mildly reduced LV function, apical septal mild hypokinesis, basal anteroseptal mild hypokinesis, mid anteroseptal mild hypokinesis, septal wall mild hypokinesis, nl RV, grade II diastolic dysfunction, LA mildly dilated, mild MR, mild TR, PASP at least 28 mmHg, mild AR, mild [place] tele: sinus 73F h/o cardiomyopathy with mild systolic dysfunction, CAD s/p stent, HTN, HLD, multiple myeloma p/w chest pain, sob, lower ext edema chest pain, acute systolic CHF exac - on IV lasix 40 mg daily - BNP >7900, similar to prior values, has mild JVD, dyspnea and edema have improved since admission - cont losartan, metoprolol - BPs consistent with baseline - treated with IV lasix 40 mg daily. held 01/30 for worsening renal fxn. - 01/31-2: mild JVD suspected, otherwise euvolemic. cont holding lasix for now in light of renal fxn and underlying myeloma--observe - 02/02 received IV lasix overnight for dyspnea, CXR with congestive changes with rales on exam. will give additional lasix dose now -02/03-5: pulm congestion improved, cont po lasix 40 qd for maintenance DEBBIE: -cr improved -renal following CAD - no signs of acute ischemia here - cont aspirin, statin, plavix, bb mult myeloma, anemia - onc following
--- NOTE | 2019-02-04 11:39 | PN ---
Progress Note (short form) - Note Progress Note: Patient seen and examined Denies chest pains or SOB No dizziness Last Vital Signs Temp Pulse Resp BP Pulse Ox 98.0 F 86 19 107/60 100 02/04/19 08:00 02/04/19 08:00 02/04/19 08:00 02/04/19 08:00 02/04/19 08:00 HEENT: ZOILA, EOM Intact Oropharynx: No thrush, No mucositis Cor: RSR, No murmurs, No gallops Lungs: Clear to P&A Abd: Soft, Normal bowel sounds, No organomegaly Ext:No significant edema Skin: No rashes, Integument intact CBC, BMP 02/02/19 05:30 02/03/19 05:30 Current Medications Generic Name Dose Route Start Last Admin Trade Name Freq PRN Reason Stop Dose Admin Acetaminophen 650 mg 01/28/19 23:59 02/03/19 02:43 Tylenol - PO 650 mg Q6H PRN Administration PAIN LEVEL 1-5 Aspirin 81 mg 01/29/19 10:00 02/04/19 09:38 Asa - PO 81 mg DAILY [facility] Administration Clopidogrel Bisulfate 75 mg 01/29/19 10:00 02/04/19 09:38 Plavix - PO 75 mg DAILY [facility] Administration Furosemide 40 mg 02/03/19 11:00 02/04/19 09:38 Lasix - PO 40 mg DAILY [facility] Administration Heparin Sodium (Porcine) 5,000 unit 01/29/19 10:00 02/04/19 09:38 Heparin - SQ 5,000 unit BID [facility] Administration Levothyroxine Sodium 50 mcg 01/29/19 07:00 02/04/19 06:08 Synthroid - PO 50 mcg DAILY@0700 [facility] Administration Metoprolol Succinate 12.5 mg 01/29/19 10:00 02/04/19 09:39 Toprol Xl - PO 12.5 mg DAILY [facility] Administration Pantoprazole Sodium 40 mg 01/29/19 10:00 02/04/19 09:38 Protonix - PO 40 mg DAILY [facility] Administration Potassium Chloride 10 meq 01/29/19 10:00 02/04/19 09:38 K-Dur - PO 10 meq DAILY [facility] Administration Prochlorperazine Maleate 10 mg 01/28/19 23:59 Compazine - PO Q6H PRN NAUSEA Valacyclovir HCl 500 mg 01/29/19 10:00 02/04/19 09:39 Valtrex - PO 500 mg DAILY [facility] Administration Impression: Atypical chest pains Myeloma/amyloid /nephrotic syndrome Anemia CAD Plan To begin Revlimid next week Per cardiology - ASA, Plavix,statin, bb Would transfuse if Hb< 8.0 gm % Monitor CBC
--- NOTE | 2019-02-04 14:22 | PN ---
Progress Note (short form) - Note Progress Note: covering dr garcia Problems 1. proteinuria 2. multiple myeloma 3. amyloid 4. dizziness 5. hypotension 6. HLD 7. hypothyroidism 8. anemia 9. CKD 10. hypercalcemia Current Medications Acetaminophen (Tylenol -) 650 mg PO Q6H PRN PRN Reason: PAIN LEVEL 1-5 Last Admin: 02/03/19 02:43 Dose: 650 mg Aspirin (Asa -) 81 mg PO DAILY [facility] Last Admin: 02/04/19 09:38 Dose: 81 mg Clopidogrel Bisulfate (Plavix -) 75 mg PO DAILY [facility] Last Admin: 02/04/19 09:38 Dose: 75 mg Furosemide (Lasix -) 40 mg PO DAILY [facility] Last Admin: 02/04/19 09:38 Dose: 40 mg Heparin Sodium (Porcine) (Heparin -) 5,000 unit SQ BID [facility] Last Admin: 02/04/19 09:38 Dose: 5,000 unit Levothyroxine Sodium (Synthroid -) 50 mcg PO DAILY@0700 [facility] Last Admin: 02/04/19 06:08 Dose: 50 mcg Metoprolol Succinate (Toprol Xl -) 12.5 mg PO DAILY [facility] Last Admin: 02/04/19 09:39 Dose: 12.5 mg Pantoprazole Sodium (Protonix -) 40 mg PO DAILY [facility] Last Admin: 02/04/19 09:38 Dose: 40 mg Potassium Chloride (K-Dur -) 10 meq PO DAILY [facility] Last Admin: 02/04/19 09:38 Dose: 10 meq Prochlorperazine Maleate (Compazine -) 10 mg PO Q6H PRN PRN Reason: NAUSEA Valacyclovir HCl (Valtrex -) 500 mg PO DAILY [facility] Last Admin: 02/04/19 09:39 Dose: 500 mg Last Vital Signs Temp Pulse Resp BP Pulse Ox 98.9 F 91 H 18 109/56 L 100 02/04/19 14:14 02/04/19 14:14 02/04/19 14:14 02/04/19 14:14 02/04/19 08:00 in nad Lungs clear Heart reg rate Abd soft nontender ext mild edema CBC, BMP 02/02/19 05:30 02/03/19 05:30 s/p DEBBIE MM renal funtion met acidosis stable Hypercalcemia hypocalcemia Plan monitor renal labs urine output
[2019-02-04] MEDS ORDERED: FUROSEMIDE 40 MG/4 ML INJECTABLE VIAL IVPUSH ONE (21:04)
--- NOTE | 2019-02-05 01:58 | PN ---
Progress Note, Physician History of Present Illness: Pt seen and examined 02/04/19 however note is being entered now - Current Medication List Current Medications: Active Medications Acetaminophen (Tylenol -) 650 mg PO Q6H PRN PRN Reason: PAIN LEVEL 1-5 Last Admin: 02/03/19 02:43 Dose: 650 mg Aspirin (Asa -) 81 mg PO DAILY [facility] Last Admin: 02/04/19 09:38 Dose: 81 mg Clopidogrel Bisulfate (Plavix -) 75 mg PO DAILY [facility] Last Admin: 02/04/19 09:38 Dose: 75 mg Furosemide (Lasix -) 40 mg PO DAILY [facility] Last Admin: 02/04/19 09:38 Dose: 40 mg Heparin Sodium (Porcine) (Heparin -) 5,000 unit SQ BID [facility] Last Admin: 02/04/19 21:38 Dose: 5,000 unit Levothyroxine Sodium (Synthroid -) 50 mcg PO DAILY@0700 [facility] Last Admin: 02/04/19 06:08 Dose: 50 mcg Metoprolol Succinate (Toprol Xl -) 12.5 mg PO DAILY [facility] Last Admin: 02/04/19 09:39 Dose: 12.5 mg Pantoprazole Sodium (Protonix -) 40 mg PO DAILY [facility] Last Admin: 02/04/19 09:38 Dose: 40 mg Potassium Chloride (K-Dur -) 10 meq PO DAILY [facility] Last Admin: 02/04/19 09:38 Dose: 10 meq Prochlorperazine Maleate (Compazine -) 10 mg PO Q6H PRN PRN Reason: NAUSEA Valacyclovir HCl (Valtrex -) 500 mg PO DAILY [facility] Last Admin: 02/04/19 09:39 Dose: 500 mg - Objective Vital Signs: Vital Signs Temperature 98.8 F 02/04/19 18:00 Pulse Rate 76 02/04/19 23:48 Respiratory Rate 22 H 02/04/19 23:48 Blood Pressure 107/50 L 02/04/19 23:48 O2 Sat by Pulse Oximetry (%) 100 02/04/19 21:00 Neck: Yes: WNL, Supple Cardiovascular: Yes: WNL, Regular Rate and Rhythm Respiratory: Yes: WNL, Regular, CTA Bilaterally Gastrointestinal: Yes: WNL, Normal Bowel Sounds, Soft Edema: No Labs: CBC, BMP 02/02/19 05:30 02/03/19 05:30 INR, PTT INR 1.03 (0.83-1.09) 01/28/19 19:55 Problem List - Problems (1) Acute on chronic systolic CHF (congestive heart failure) Assessment/Plan: Pt now on po lasix Monitor electrolytes Code(s): I50.23 - ACUTE ON CHRONIC SYSTOLIC (CONGESTIVE) HEART FAILURE (2) Multiple myeloma Assessment/Plan: As per onco Pt to start revlimid next week Code(s): C90.00 - MULTIPLE MYELOMA NOT HAVING ACHIEVED REMISSION Qualifiers: Multiple myeloma remission status: unspecified Qualified Code(s): C90.00 - Multiple myeloma not having achieved remission (3) CAD (coronary artery disease) Assessment/Plan: Cont asa/plavix Code(s): I25.10 - ATHSCL HEART DISEASE OF [place] CORONARY ARTERY W/O ANG PCTRS Qualifiers: Coronary Disease-Associated Artery/Lesion type: unspecified vessel or lesion type [place] vs. transplanted heart: unspecified whether [place] or transplanted heart Associated angina: with unspecified angina Qualified Code (s): I25.119 - Atherosclerotic heart disease of [place] coronary artery with unspecified angina pectoris (4) HTN (hypertension) Code(s): I10 - ESSENTIAL (PRIMARY) HYPERTENSION Qualifiers: Hypertension type: unspecified Qualified Code(s): I10 - Essential (primary ) hypertension (5) Anemia Code(s): D64.9 - ANEMIA, UNSPECIFIED (6) CKD (chronic kidney disease) Code(s): N18.9 - CHRONIC KIDNEY DISEASE, UNSPECIFIED (7) Elevated troponin Code(s): R74.8 - ABNORMAL LEVELS OF OTHER SERUM ENZYMES
[2019-02-05] MEDS: LEVOTHYROXINE NA 50 MCG TABLET (FP) PO SCH (06:26)
--- NOTE | 2019-02-05 09:15 | PN ---
Progress Note, Physician History of Present Illness: Renal F/U Pt in no distress while sitting OOB in a chair Had some dyspnea yesterday but better today after lasix No recent labs available yet scheduled for PRBCs with last Hgb above 8? - Current Medication List Current Medications: Active Medications Acetaminophen (Tylenol -) 650 mg PO Q6H PRN PRN Reason: PAIN LEVEL 1-5 Last Admin: 02/03/19 02:43 Dose: 650 mg Aspirin (Asa -) 81 mg PO DAILY [facility] Last Admin: 02/04/19 09:38 Dose: 81 mg Clopidogrel Bisulfate (Plavix -) 75 mg PO DAILY [facility] Last Admin: 02/04/19 09:38 Dose: 75 mg Furosemide (Lasix -) 40 mg PO DAILY [facility] Last Admin: 02/04/19 09:38 Dose: 40 mg Heparin Sodium (Porcine) (Heparin -) 5,000 unit SQ BID [facility] Last Admin: 02/04/19 21:38 Dose: 5,000 unit Levothyroxine Sodium (Synthroid -) 50 mcg PO DAILY@0700 [facility] Last Admin: 02/05/19 06:26 Dose: 50 mcg Metoprolol Succinate (Toprol Xl -) 12.5 mg PO DAILY [facility] Last Admin: 02/04/19 09:39 Dose: 12.5 mg Pantoprazole Sodium (Protonix -) 40 mg PO DAILY [facility] Last Admin: 02/04/19 09:38 Dose: 40 mg Potassium Chloride (K-Dur -) 10 meq PO DAILY [facility] Last Admin: 02/04/19 09:38 Dose: 10 meq Prochlorperazine Maleate (Compazine -) 10 mg PO Q6H PRN PRN Reason: NAUSEA Valacyclovir HCl (Valtrex -) 500 mg PO DAILY [facility] Last Admin: 02/04/19 09:39 Dose: 500 mg - Objective Vital Signs: Vital Signs Temperature 98.8 F 02/04/19 18:00 Pulse Rate 76 02/04/19 23:48 Respiratory Rate 22 H 02/04/19 23:48 Blood Pressure 107/50 L 02/04/19 23:48 O2 Sat by Pulse Oximetry (%) 100 02/04/19 21:00 Constitutional: Yes: No Distress Cardiovascular: Yes: S1, S2 Respiratory: Yes: CTA Bilaterally Gastrointestinal: Yes: Soft Edema: No Labs: CBC, BMP 02/02/19 05:30 02/03/19 05:30 INR, PTT INR 1.03 (0.83-1.09) 01/28/19 19:55 - ....Imaging Chest X-ray: Report Reviewed (Minimal congestive changes and no effusions 02/03) Assessment/Plan Impression 1. Proteinuria in pt with multiple myeloma and amyloidosis 2. CAD 3. Hypotension 4. HLD 5. Hypothyroidism 6. Anemia 7. S/P hypercalcemia Plan - Rpt labs ordered for today - Continue with PO lasix as ordered - Clinically appears euvolemic - Needs repeat labs before considering arb secondary to hypotension - Scheduled for Revlimid next week - Would only transfuse if Hb< 8.0 gm % Dr Thomas
[2019-02-05] MEDS: ASPIRIN 81 MG CHEWABLE TABLETS PO SCH (09:58)
[2019-02-05] MEDS: FUROSEMIDE 40 MG TABLET (FP) PO SCH (09:58)
[2019-02-05] MEDS: CLOPIDOGREL BISULFATE 75 MG TABLET (FP) PO SCH (09:58)
[2019-02-05] MEDS: valACYclovir HCL 500 MG TABLET (FP) PO SCH (09:58)
[2019-02-05] MEDS: POTASSIUM CHLORIDE TABS 10 MEQ TABLET.ER (FP) PO SCH (09:58)
[2019-02-05] MEDS: PANTOPRAZOLE 40 MG TABLET (FP) PO SCH (09:58)
[2019-02-05] MEDS: metoPROLOL SUCCINATE 25 MG TAB.SR.24H (FP) PO SCH (09:58)
--- NOTE | 2019-02-05 10:18 | PN ---
Progress Note (short form) - Note Progress Note: s: feeling well. no cp sob palps dizzy o: Vital Signs Period Temp Pulse Resp BP Sys/Moss Pulse Ox Last 24 Hr 98.1 F-99.0 F 76-109 17-22 100-119/50-94 100 Constitutional: Yes: Well Nourished, No Distress, Calm Cardiovascular: Yes: Regular Rate and Rhythm, JVD (mild), S1, S2. No: Gallop, Murmur Respiratory: Yes: Regular, +rales. No: Accessory Muscle Use, Wheezes Extremities: No: Cold Edema: No Neurological: Yes: Alert. No: Seizure Psychiatric: No: Agitated no jaundice diaphoresis Current Medications Generic Name Dose Route Start Last Admin Trade Name Freq PRN Reason Stop Dose Admin Acetaminophen 650 mg 01/28/19 23:59 02/03/19 02:43 Tylenol - PO 650 mg Q6H PRN Administration PAIN LEVEL 1-5 Aspirin 81 mg 01/29/19 10:00 02/05/19 09:58 Asa - PO 81 mg DAILY [facility] Administration Clopidogrel Bisulfate 75 mg 01/29/19 10:00 02/05/19 09:58 Plavix - PO 75 mg DAILY [facility] Administration Furosemide 40 mg 02/03/19 11:00 02/05/19 09:58 Lasix - PO 40 mg DAILY [facility] Administration Levothyroxine Sodium 50 mcg 01/29/19 07:00 02/05/19 06:26 Synthroid - PO 50 mcg DAILY@0700 [facility] Administration Metoprolol Succinate 12.5 mg 01/29/19 10:00 02/05/19 09:58 Toprol Xl - PO 12.5 mg DAILY [facility] Administration Pantoprazole Sodium 40 mg 01/29/19 10:00 02/05/19 09:58 Protonix - PO 40 mg DAILY [facility] Administration Potassium Chloride 10 meq 01/29/19 10:00 02/05/19 09:58 K-Dur - PO 10 meq DAILY [facility] Administration Prochlorperazine Maleate 10 mg 01/28/19 23:59 Compazine - PO Q6H PRN NAUSEA Valacyclovir HCl 500 mg 01/29/19 10:00 02/05/19 09:58 Valtrex - PO 500 mg DAILY [facility] Administration CBC, BMP 02/02/19 05:30 02/03/19 05:30 Assessment/Plan EKG: sinus, nonspecific ST changes, unchanged from prior CXR: no acute process echo 12/2018 mildly reduced LV function, apical septal mild hypokinesis, basal anteroseptal mild hypokinesis, mid anteroseptal mild hypokinesis, septal wall mild hypokinesis, nl RV, grade II diastolic dysfunction, LA mildly dilated, mild MR, mild TR, PASP at least 28 mmHg, mild AR, mild [place] tele: sinus 73F h/o cardiomyopathy with mild systolic dysfunction, CAD s/p stent, HTN, HLD, multiple myeloma p/w chest pain, sob, lower ext edema chest pain, acute systolic CHF exac - on IV lasix 40 mg daily - BNP >7900, similar to prior values, has mild JVD, dyspnea and edema have improved since admission - cont losartan, metoprolol - BPs consistent with baseline - treated with IV lasix 40 mg daily. held 01/30 for worsening renal fxn. - 01/31-2: mild JVD suspected, otherwise euvolemic. cont holding lasix for now in light of renal fxn and underlying myeloma--observe - 02/02 received IV lasix overnight for dyspnea, CXR with congestive changes with rales on exam. will give additional lasix dose now -02/03-6: pulm congestion improved, cont po lasix 40 qd for maintenance DEBBIE: -cr improved -renal following CAD - no signs of acute ischemia here - cont aspirin, statin, plavix, bb mult myeloma, anemia - onc following
[2019-02-05 10:58] LABS: BASO % 0.2 % (0-2.0); EOS % 0.1 % (0-4.5); HEMOGLOBIN 8.6 GM/dL (10.7-15.3); LYMPH % 22.2 % (8-40); MCH 31.2 pg (25.7-33.7); MCHC 33.2 g/dl (32.0-36.0); MEAN CELL VOLUME 93.8 fl (80-96); MEAN PLT VOLUME 9.5 fl (7.5-11.1); NEUT % 72.5 % (42.8-82.8); PLATELET COUNT 145 K/MM3 (134-434); RBC 2.77 M/mm3 (3.60-5.2); RDW 19.7 % (11.6-15.6); WHITE BLOOD COUNT 5.9 K/mm3 (4.0-10.0)
[2019-02-05 11:11] LABS: ANION GAP 11 MMOL/L (8-16); CALCIUM 8.1 mg/dL (8.5-10.1); CHLORIDE 108 mmol/L (98-107); CO2 20 mmol/L (21-32); POTASSIUM 3.3 mmol/L (3.5-5.1); SODIUM 139 mmol/L (136-145)
[2019-02-05 11:27] LABS: BLOOD UREA NITROGEN 25 mg/dL (7-18); GLUCOSE,RANDOM 111 mg/dL (74-106)
[2019-02-05] MEDS ORDERED: POTASSIUM CHLORIDE TABS 20 MEQ TABLET.ER (FP) PO ONE (12:28)
--- NOTE | 2019-02-05 19:05 | PN ---
Progress Note, Physician Chief Complaint: Chest pain History of Present Illness: Continues to have chest pain. Anxious about being sick. - Current Medication List Current Medications: Active Medications Acetaminophen (Tylenol -) 650 mg PO Q6H PRN PRN Reason: PAIN LEVEL 1-5 Last Admin: 02/03/19 02:43 Dose: 650 mg Aspirin (Asa -) 81 mg PO DAILY [facility] Last Admin: 02/05/19 09:58 Dose: 81 mg Clopidogrel Bisulfate (Plavix -) 75 mg PO DAILY [facility] Last Admin: 02/05/19 09:58 Dose: 75 mg Furosemide (Lasix -) 40 mg PO DAILY [facility] Last Admin: 02/05/19 09:58 Dose: 40 mg Levothyroxine Sodium (Synthroid -) 50 mcg PO DAILY@0700 [facility] Last Admin: 02/05/19 06:26 Dose: 50 mcg Metoprolol Succinate (Toprol Xl -) 12.5 mg PO DAILY [facility] Last Admin: 02/05/19 09:58 Dose: 12.5 mg Pantoprazole Sodium (Protonix -) 40 mg PO DAILY [facility] Last Admin: 02/05/19 09:58 Dose: 40 mg Potassium Chloride (K-Dur -) 10 meq PO DAILY [facility] Last Admin: 02/05/19 09:58 Dose: 10 meq Prochlorperazine Maleate (Compazine -) 10 mg PO Q6H PRN PRN Reason: NAUSEA Valacyclovir HCl (Valtrex -) 500 mg PO DAILY [facility] Last Admin: 02/05/19 09:58 Dose: 500 mg - Objective Vital Signs: Vital Signs Temperature 99.3 F 02/05/19 18:09 Pulse Rate 90 02/05/19 18:09 Respiratory Rate 18 02/05/19 18:09 Blood Pressure 120/59 L 02/05/19 18:09 O2 Sat by Pulse Oximetry (%) 100 02/05/19 09:00 Constitutional: Yes: Anxious (Tearful) Eyes: Yes: Conjunctiva Clear Cardiovascular: Yes: Regular Rate and Rhythm Respiratory: Yes: CTA Bilaterally Edema: No Labs: CBC, BMP 02/05/19 10:35 02/05/19 10:35 INR, PTT INR 1.03 (0.83-1.09) 01/28/19 19:55 Assessment/Plan 73F with NSTEMI in 12/2018 s/p HOLLY D1 CHF (EF 45-50%), IgA lambda, myeloma/ amyloidosis c/b nephrotic range proteinuria, on VCD since 10/2018 presented with chest pain and SOB. Being treated for CHF exacerbation. Planned to start revlimid next week.
--- NOTE | 2019-02-05 21:24 | PN ---
Progress Note, Physician History of Present Illness: No new complaints - Current Medication List Current Medications: Active Medications Acetaminophen (Tylenol -) 650 mg PO Q6H PRN PRN Reason: PAIN LEVEL 1-5 Last Admin: 02/03/19 02:43 Dose: 650 mg Aspirin (Asa -) 81 mg PO DAILY [facility] Last Admin: 02/05/19 09:58 Dose: 81 mg Clopidogrel Bisulfate (Plavix -) 75 mg PO DAILY [facility] Last Admin: 02/05/19 09:58 Dose: 75 mg Furosemide (Lasix -) 40 mg PO DAILY [facility] Last Admin: 02/05/19 09:58 Dose: 40 mg Levothyroxine Sodium (Synthroid -) 50 mcg PO DAILY@0700 [facility] Last Admin: 02/05/19 06:26 Dose: 50 mcg Metoprolol Succinate (Toprol Xl -) 12.5 mg PO DAILY [facility] Last Admin: 02/05/19 09:58 Dose: 12.5 mg Pantoprazole Sodium (Protonix -) 40 mg PO DAILY [facility] Last Admin: 02/05/19 09:58 Dose: 40 mg Potassium Chloride (K-Dur -) 10 meq PO DAILY [facility] Last Admin: 02/05/19 09:58 Dose: 10 meq Prochlorperazine Maleate (Compazine -) 10 mg PO Q6H PRN PRN Reason: NAUSEA Valacyclovir HCl (Valtrex -) 500 mg PO DAILY [facility] Last Admin: 02/05/19 09:58 Dose: 500 mg - Objective Vital Signs: Vital Signs Temperature 99.3 F 02/05/19 18:09 Pulse Rate 90 02/05/19 18:09 Respiratory Rate 18 02/05/19 18:09 Blood Pressure 120/59 L 02/05/19 18:09 O2 Sat by Pulse Oximetry (%) 100 02/05/19 09:00 Cardiovascular: Yes: WNL Respiratory: Yes: WNL, Regular, CTA Bilaterally Gastrointestinal: Yes: WNL, Normal Bowel Sounds, Soft Edema: No Labs: CBC, BMP 02/05/19 10:35 02/05/19 10:35 INR, PTT INR 1.03 (0.83-1.09) 01/28/19 19:55 Problem List - Problems (1) Acute on chronic systolic CHF (congestive heart failure) Assessment/Plan: Pt now on po lasix Monitor electrolytes Code(s): I50.23 - ACUTE ON CHRONIC SYSTOLIC (CONGESTIVE) HEART FAILURE (2) Multiple myeloma Assessment/Plan: As per onco Pt to start revlimid next week Code(s): C90.00 - MULTIPLE MYELOMA NOT HAVING ACHIEVED REMISSION Qualifiers: Multiple myeloma remission status: unspecified Qualified Code(s): C90.00 - Multiple myeloma not having achieved remission (3) CAD (coronary artery disease) Assessment/Plan: Cont asa/plavix Code(s): I25.10 - ATHSCL HEART DISEASE OF [place] CORONARY ARTERY W/O ANG PCTRS Qualifiers: Coronary Disease-Associated Artery/Lesion type: unspecified vessel or lesion type [place] vs. transplanted heart: unspecified whether [place] or transplanted heart Associated angina: with unspecified angina Qualified Code (s): I25.119 - Atherosclerotic heart disease of [place] coronary artery with unspecified angina pectoris (4) HTN (hypertension) Assessment/Plan: Cont toprol Losartan on hold due to hypotension Code(s): I10 - ESSENTIAL (PRIMARY) HYPERTENSION Qualifiers: Hypertension type: unspecified Qualified Code(s): I10 - Essential (primary ) hypertension (5) Anemia Assessment/Plan: Monitor H/H Code(s): D64.9 - ANEMIA, UNSPECIFIED (6) CKD (chronic kidney disease) Code(s): N18.9 - CHRONIC KIDNEY DISEASE, UNSPECIFIED (7) Elevated troponin Code(s): R74.8 - ABNORMAL LEVELS OF OTHER SERUM ENZYMES
[2019-02-05] MEDS: ACETAMINOPHEN 325 MG TABLET (FP) PO PRN (22:45)
[2019-02-06 05:58] LABS: BASO % 0.5 % (0-2.0); EOS % 0.5 % (0-4.5); HEMATOCRIT 22.9 % (32.4-45.2); HEMOGLOBIN 7.7 GM/dL (10.7-15.3); LYMPH % 31.2 % (8-40); MCH 31.3 pg (25.7-33.7); MCHC 33.8 g/dl (32.0-36.0); MEAN CELL VOLUME 92.7 fl (80-96); MONO % 10.1 % (3.8-10.2); NEUT % 57.7 % (42.8-82.8); PLATELET COUNT 149 K/MM3 (134-434); RBC 2.47 M/mm3 (3.60-5.2); RDW 20.3 % (11.6-15.6); WHITE BLOOD COUNT 4.8 K/mm3 (4.0-10.0)
[2019-02-06 06:25] LABS: ALBUMIN 1.4 g/dl (3.4-5.0); ALK PHOS 49 U/L (45-117); ANION GAP 9 MMOL/L (8-16); BILIRUBIN,TOTAL 0.3 mg/dL (0.2-1); BLOOD UREA NITROGEN 21 mg/dL (7-18); CALCIUM 7.4 mg/dL (8.5-10.1); CHLORIDE 111 mmol/L (98-107); CO2 21 mmol/L (21-32); CREATININE 0.9 mg/dL (0.55-1.3); GLUCOSE,RANDOM 83 mg/dL (74-106); POTASSIUM 4.2 mmol/L (3.5-5.1); SGOT/AST 11 U/L (15-37); SGPT/ALT 11 U/L (13-61); SODIUM 140 mmol/L (136-145); TOT PROT 7.7 g/dl (6.4-8.2)
[2019-02-06] MEDS: LEVOTHYROXINE NA 50 MCG TABLET (FP) PO SCH (06:34)
--- NOTE | 2019-02-06 08:06 | PN ---
Progress Note, Physician History of Present Illness: Renal F/U Pt feels better today No C/O dyspnea or chest pain Hgb down to 7.7 Azotemia stable - Current Medication List Current Medications: Active Medications Acetaminophen (Tylenol -) 650 mg PO Q6H PRN PRN Reason: PAIN LEVEL 1-5 Last Admin: 02/05/19 22:45 Dose: 650 mg Aspirin (Asa -) 81 mg PO DAILY [facility] Last Admin: 02/05/19 09:58 Dose: 81 mg Clopidogrel Bisulfate (Plavix -) 75 mg PO DAILY [facility] Last Admin: 02/05/19 09:58 Dose: 75 mg Furosemide (Lasix -) 40 mg PO DAILY [facility] Last Admin: 02/05/19 09:58 Dose: 40 mg Levothyroxine Sodium (Synthroid -) 50 mcg PO DAILY@0700 [facility] Last Admin: 02/06/19 06:34 Dose: 50 mcg Metoprolol Succinate (Toprol Xl -) 12.5 mg PO DAILY [facility] Last Admin: 02/05/19 09:58 Dose: 12.5 mg Pantoprazole Sodium (Protonix -) 40 mg PO DAILY [facility] Last Admin: 02/05/19 09:58 Dose: 40 mg Potassium Chloride (K-Dur -) 10 meq PO DAILY [facility] Last Admin: 02/05/19 09:58 Dose: 10 meq Prochlorperazine Maleate (Compazine -) 10 mg PO Q6H PRN PRN Reason: NAUSEA Valacyclovir HCl (Valtrex -) 500 mg PO DAILY [facility] Last Admin: 02/05/19 09:58 Dose: 500 mg - Objective Vital Signs: Vital Signs Temperature 99.3 F 02/05/19 18:09 Pulse Rate 90 02/05/19 18:09 Respiratory Rate 18 02/05/19 18:09 Blood Pressure 120/59 L 02/05/19 18:09 O2 Sat by Pulse Oximetry (%) 100 02/05/19 21:00 Constitutional: Yes: No Distress Cardiovascular: Yes: S1, S2 Respiratory: Yes: CTA Bilaterally Gastrointestinal: Yes: Soft. No: Tenderness, Rebound Edema: No Labs: CBC, BMP 02/06/19 05:30 02/06/19 05:30 INR, PTT INR 1.03 (0.83-1.09) 01/28/19 19:55 Assessment/Plan Impression 1. Proteinuria in pt with multiple myeloma and amyloidosis 2. CAD 3. Hypotension 4. HLD 5. Hypothyroidism 6. Anemia 7. S/P hypercalcemia Plan - Transfuse as recommended by hematology since Hgb is less than 8 - Continue with PO lasix as ordered - Will add an Arb rosendo since BP continues to improve - Scheduled for Revlimid next week Dr Thomas
[2019-02-06] MEDS ORDERED: LOSARTAN POTASSIUM 25 MG TABLET PO ONE (08:10)
[2019-02-06] MEDS ORDERED: PT OWN MED DRAWER 7, Y5N ONE ×3 (08:45→12:17)
[2019-02-06] MEDS: ASPIRIN 81 MG CHEWABLE TABLETS PO SCH (09:22)
[2019-02-06] MEDS: CLOPIDOGREL BISULFATE 75 MG TABLET (FP) PO SCH (09:23)
[2019-02-06] MEDS: valACYclovir HCL 500 MG TABLET (FP) PO SCH (09:23)
[2019-02-06] MEDS: FUROSEMIDE 40 MG TABLET (FP) PO SCH (09:23)
[2019-02-06] MEDS: PANTOPRAZOLE 40 MG TABLET (FP) PO SCH (09:23)
[2019-02-06] MEDS: metoPROLOL SUCCINATE 25 MG TAB.SR.24H (FP) PO SCH (09:23)
[2019-02-06] MEDS: ACETAMINOPHEN 325 MG TABLET (FP) PO PRN (09:24)
--- NOTE | 2019-02-06 10:42 | PN ---
Progress Note (short form) - Note Progress Note: s: feeling well. no cp sob palps dizzy o: Vital Signs Period Temp Pulse Resp BP Sys/Moss Pulse Ox Last 24 Hr 99.3 F-99.3 F 88-90 18-26 116-120/59-62 100-100 Constitutional: Yes: Well Nourished, No Distress, Calm Cardiovascular: Yes: Regular Rate and Rhythm, JVD (mild), S1, S2. No: Gallop, Murmur Respiratory: Yes: Regular, +rales. No: Accessory Muscle Use, Wheezes Extremities: No: Cold Edema: No Neurological: Yes: Alert. No: Seizure Psychiatric: No: Agitated no jaundice diaphoresis Current Medications Generic Name Dose Route Start Last Admin Trade Name Freq PRN Reason Stop Dose Admin Acetaminophen 650 mg 01/28/19 23:59 02/06/19 09:24 Tylenol - PO 650 mg Q6H PRN Administration PAIN LEVEL 1-5 Aspirin 81 mg 01/29/19 10:00 02/06/19 09:22 Asa - PO 81 mg DAILY [facility] Administration Clopidogrel Bisulfate 75 mg 01/29/19 10:00 02/06/19 09:23 Plavix - PO 75 mg DAILY [facility] Administration Furosemide 40 mg 02/03/19 11:00 02/06/19 09:23 Lasix - PO 40 mg DAILY [facility] Administration Levothyroxine Sodium 50 mcg 01/29/19 07:00 02/06/19 06:34 Synthroid - PO 50 mcg DAILY@0700 [facility] Administration Metoprolol Succinate 12.5 mg 01/29/19 10:00 02/06/19 09:23 Toprol Xl - PO 12.5 mg DAILY [facility] Administration Pantoprazole Sodium 40 mg 01/29/19 10:00 02/06/19 09:23 Protonix - PO 40 mg DAILY [facility] Administration Prochlorperazine Maleate 10 mg 01/28/19 23:59 Compazine - PO Q6H PRN NAUSEA Valacyclovir HCl 500 mg 01/29/19 10:00 02/06/19 09:23 Valtrex - PO 500 mg DAILY [facility] Administration CBC, BMP 02/06/19 05:30 02/06/19 05:30 Assessment/Plan EKG: sinus, nonspecific ST changes, unchanged from prior CXR: no acute process echo 12/2018 mildly reduced LV function, apical septal mild hypokinesis, basal anteroseptal mild hypokinesis, mid anteroseptal mild hypokinesis, septal wall mild hypokinesis, nl RV, grade II diastolic dysfunction, LA mildly dilated, mild MR, mild TR, PASP at least 28 mmHg, mild AR, mild [place] tele: sinus 73F h/o cardiomyopathy with mild systolic dysfunction, CAD s/p stent, HTN, HLD, multiple myeloma p/w chest pain, sob, lower ext edema chest pain, acute systolic CHF exac - on IV lasix 40 mg daily - BNP >7900, similar to prior values, has mild JVD, dyspnea and edema have improved since admission - cont losartan, metoprolol - BPs consistent with baseline - treated with IV lasix 40 mg daily. held 01/30 for worsening renal fxn. - 01/31-2: mild JVD suspected, otherwise euvolemic. cont holding lasix for now in light of renal fxn and underlying myeloma--observe - 02/02 received IV lasix overnight for dyspnea, CXR with congestive changes with rales on exam. will give additional lasix dose now -02/03-7: pulm congestion improved, cont po lasix 40 qd for maintenance DEBBIE: -cr improved -renal following CAD - no signs of acute ischemia here - cont aspirin, statin, plavix, bb mult myeloma, anemia - onc following dc tele
--- NOTE | 2019-02-06 19:29 | PN ---
Progress Note, Physician Chief Complaint: Chest pain History of Present Illness: Feels much better today. Chest pain resolved. - Current Medication List Current Medications: Active Medications Acetaminophen (Tylenol -) 650 mg PO Q6H PRN PRN Reason: PAIN LEVEL 1-5 Last Admin: 02/06/19 09:24 Dose: 650 mg Aspirin (Asa -) 81 mg PO DAILY [facility] Last Admin: 02/06/19 09:22 Dose: 81 mg Clopidogrel Bisulfate (Plavix -) 75 mg PO DAILY [facility] Last Admin: 02/06/19 09:23 Dose: 75 mg Furosemide (Lasix -) 40 mg PO DAILY [facility] Last Admin: 02/06/19 09:23 Dose: 40 mg Levothyroxine Sodium (Synthroid -) 50 mcg PO DAILY@0700 [facility] Last Admin: 02/06/19 06:34 Dose: 50 mcg Metoprolol Succinate (Toprol Xl -) 12.5 mg PO DAILY [facility] Last Admin: 02/06/19 09:23 Dose: 12.5 mg Pantoprazole Sodium (Protonix -) 40 mg PO DAILY [facility] Last Admin: 02/06/19 09:23 Dose: 40 mg Prochlorperazine Maleate (Compazine -) 10 mg PO Q6H PRN PRN Reason: NAUSEA Valacyclovir HCl (Valtrex -) 500 mg PO DAILY [facility] Last Admin: 02/06/19 09:23 Dose: 500 mg - Objective Vital Signs: Vital Signs Temperature 99.4 F 02/06/19 13:38 Pulse Rate 96 H 02/06/19 17:00 Respiratory Rate 20 02/06/19 17:00 Blood Pressure 135/64 02/06/19 17:00 O2 Sat by Pulse Oximetry (%) 100 02/06/19 08:20 Constitutional: Yes: Well Nourished, Calm Eyes: Yes: Conjunctiva Clear Cardiovascular: Yes: WNL, Regular Rate and Rhythm Respiratory: Yes: Regular, CTA Bilaterally Gastrointestinal: Yes: Normal Bowel Sounds, Soft Edema: No Labs: CBC, BMP 02/06/19 05:30 02/06/19 05:30 INR, PTT INR 1.03 (0.83-1.09) 01/28/19 19:55 Assessment/Plan 73F with NSTEMI in 12/2018 s/p HOLLY D1 CHF (EF 45-50%), IgA lambda, myeloma/ amyloidosis c/b nephrotic range proteinuria, on VCD since 10/2018 presented with chest pain and SOB. Being treated for CHF exacerbation. Doing much better today. Planned to start revlimid next week.
--- NOTE | 2019-02-06 19:41 | PN ---
Progress Note, Physician History of Present Illness: No new complaints - Current Medication List Current Medications: Active Medications Acetaminophen (Tylenol -) 650 mg PO Q6H PRN PRN Reason: PAIN LEVEL 1-5 Last Admin: 02/06/19 09:24 Dose: 650 mg Aspirin (Asa -) 81 mg PO DAILY [facility] Last Admin: 02/06/19 09:22 Dose: 81 mg Clopidogrel Bisulfate (Plavix -) 75 mg PO DAILY [facility] Last Admin: 02/06/19 09:23 Dose: 75 mg Furosemide (Lasix -) 40 mg PO DAILY [facility] Last Admin: 02/06/19 09:23 Dose: 40 mg Levothyroxine Sodium (Synthroid -) 50 mcg PO DAILY@0700 [facility] Last Admin: 02/06/19 06:34 Dose: 50 mcg Metoprolol Succinate (Toprol Xl -) 12.5 mg PO DAILY [facility] Last Admin: 02/06/19 09:23 Dose: 12.5 mg Pantoprazole Sodium (Protonix -) 40 mg PO DAILY [facility] Last Admin: 02/06/19 09:23 Dose: 40 mg Prochlorperazine Maleate (Compazine -) 10 mg PO Q6H PRN PRN Reason: NAUSEA Valacyclovir HCl (Valtrex -) 500 mg PO DAILY [facility] Last Admin: 02/06/19 09:23 Dose: 500 mg - Objective Vital Signs: Vital Signs Temperature 99.4 F 02/06/19 13:38 Pulse Rate 96 H 02/06/19 17:00 Respiratory Rate 20 02/06/19 17:00 Blood Pressure 135/64 02/06/19 17:00 O2 Sat by Pulse Oximetry (%) 100 02/06/19 08:20 Neck: Yes: WNL, Supple Cardiovascular: Yes: WNL, Regular Rate and Rhythm Respiratory: Yes: Diminished Gastrointestinal: Yes: WNL, Normal Bowel Sounds, Soft Edema: No Labs: CBC, BMP 02/06/19 05:30 02/06/19 05:30 INR, PTT INR 1.03 (0.83-1.09) 01/28/19 19:55 Problem List - Problems (1) Anemia Assessment/Plan: Pt transfused 1 unit PRB's today Code(s): D64.9 - ANEMIA, UNSPECIFIED (2) Acute on chronic systolic CHF (congestive heart failure) Assessment/Plan: Pt now on po lasix DC planning for am Code(s): I50.23 - ACUTE ON CHRONIC SYSTOLIC (CONGESTIVE) HEART FAILURE (3) Multiple myeloma Assessment/Plan: As per onco Pt to start revlimid next week Code(s): C90.00 - MULTIPLE MYELOMA NOT HAVING ACHIEVED REMISSION Qualifiers: Multiple myeloma remission status: unspecified Qualified Code(s): C90.00 - Multiple myeloma not having achieved remission (4) CAD (coronary artery disease) Assessment/Plan: Cont asa/plavix Code(s): I25.10 - ATHSCL HEART DISEASE OF [place] CORONARY ARTERY W/O ANG PCTRS Qualifiers: Coronary Disease-Associated Artery/Lesion type: unspecified vessel or lesion type [place] vs. transplanted heart: unspecified whether [place] or transplanted heart Associated angina: with unspecified angina Qualified Code (s): I25.119 - Atherosclerotic heart disease of [place] coronary artery with unspecified angina pectoris (5) HTN (hypertension) Assessment/Plan: Cont toprol Losartan on hold due to hypotension Code(s): I10 - ESSENTIAL (PRIMARY) HYPERTENSION Qualifiers: Hypertension type: unspecified Qualified Code(s): I10 - Essential (primary ) hypertension (6) CKD (chronic kidney disease) Code(s): N18.9 - CHRONIC KIDNEY DISEASE, UNSPECIFIED (7) Elevated troponin Assessment/Plan: Due to demand ischemia Code(s): R74.8 - ABNORMAL LEVELS OF OTHER SERUM ENZYMES (8) Hypothyroidism Assessment/Plan: Cont levothyroxine Code(s): E03.9 - HYPOTHYROIDISM, UNSPECIFIED
[2019-02-07] MEDS: ACETAMINOPHEN 325 MG TABLET (FP) PO PRN (02:23)
[2019-02-07] MEDS: LEVOTHYROXINE NA 50 MCG TABLET (FP) PO SCH (06:01)
[2019-02-07 07:07] LABS: BASO % 0.5 % (0-2.0); EOS % 0.7 % (0-4.5); HEMATOCRIT 25.5 % (32.4-45.2); HEMOGLOBIN 8.6 GM/dL (10.7-15.3); LYMPH % 36.7 % (8-40); MCH 31.1 pg (25.7-33.7); MCHC 33.6 g/dl (32.0-36.0); MEAN CELL VOLUME 92.5 fl (80-96); MEAN PLT VOLUME 8.8 fl (7.5-11.1); NEUT % 50.1 % (42.8-82.8); PLATELET COUNT 170 K/MM3 (134-434); RBC 2.76 M/mm3 (3.60-5.2); RDW 18.6 % (11.6-15.6); WHITE BLOOD COUNT 5.5 K/mm3 (4.0-10.0)
[2019-02-07 07:43] LABS: ALBUMIN 1.4 g/dl (3.4-5.0); ALK PHOS 52 U/L (45-117); ANION GAP 7 MMOL/L (8-16); BILIRUBIN,TOTAL 0.6 mg/dL (0.2-1); BLOOD UREA NITROGEN 21 mg/dL (7-18); CALCIUM 8.3 mg/dL (8.5-10.1); CHLORIDE 108 mmol/L (98-107); CO2 22 mmol/L (21-32); CREATININE 0.8 mg/dL (0.55-1.3); GLUCOSE,RANDOM 93 mg/dL (74-106); POTASSIUM 4.2 mmol/L (3.5-5.1); SGOT/AST 9 U/L (15-37); SGPT/ALT 9 U/L (13-61); SODIUM 136 mmol/L (136-145)
--- NOTE | 2019-02-07 09:53 | PN ---
Progress Note, Physician Chief Complaint: sob History of Present Illness: no sob, no orthopnea. no leg swelling. no cp no recent cigs - Current Medication List Current Medications: Active Medications Acetaminophen (Tylenol -) 650 mg PO Q6H PRN PRN Reason: PAIN LEVEL 1-5 Last Admin: 02/07/19 02:23 Dose: 650 mg Aspirin (Asa -) 81 mg PO DAILY [facility] Last Admin: 02/06/19 09:22 Dose: 81 mg Clopidogrel Bisulfate (Plavix -) 75 mg PO DAILY [facility] Last Admin: 02/06/19 09:23 Dose: 75 mg Furosemide (Lasix -) 40 mg PO DAILY [facility] Last Admin: 02/06/19 09:23 Dose: 40 mg Levothyroxine Sodium (Synthroid -) 50 mcg PO DAILY@0700 [facility] Last Admin: 02/07/19 06:01 Dose: 50 mcg Metoprolol Succinate (Toprol Xl -) 12.5 mg PO DAILY [facility] Last Admin: 02/06/19 09:23 Dose: 12.5 mg Pantoprazole Sodium (Protonix -) 40 mg PO DAILY [facility] Last Admin: 02/06/19 09:23 Dose: 40 mg Prochlorperazine Maleate (Compazine -) 10 mg PO Q6H PRN PRN Reason: NAUSEA Valacyclovir HCl (Valtrex -) 500 mg PO DAILY [facility] Last Admin: 02/06/19 09:23 Dose: 500 mg - Objective Vital Signs: Vital Signs Temperature 99.3 F 02/07/19 08:00 Pulse Rate 95 H 02/07/19 08:00 Respiratory Rate 16 02/07/19 08:00 Blood Pressure 109/67 02/07/19 06:00 O2 Sat by Pulse Oximetry (%) 98 02/06/19 21:00 Constitutional: Yes: No Distress, Calm Eyes: No: Sclera Icterus HENT: No: Nasal Congestion Cardiovascular: Yes: Regular Rate and Rhythm, S1, S2, Other (PMI non diplaced). No: JVD, Gallop, Murmur Respiratory: Yes: CTA Bilaterally. No: Accessory Muscle Use, Rales, Wheezes Gastrointestinal: Yes: Normal Bowel Sounds, Soft. No: Tenderness Musculoskeletal: Yes: Other (No kyphosis) Extremities: No: Cold Edema: No Integumentary: No: Jaundice Neurological: Yes: Alert, Oriented (x3) Psychiatric: No: Agitated Labs: CBC, BMP 02/07/19 05:30 02/07/19 05:30 INR, PTT INR 1.03 (0.83-1.09) 01/28/19 19:55 Assessment/Plan EKG: sinus, nonspecific ST changes, unchanged from prior CXR 02/03: congestive findings improved, no effusions echo 12/2018 mildly reduced LV function, apical septal mild hypokinesis, basal anteroseptal mild hypokinesis, mid anteroseptal mild hypokinesis, septal wall mild hypokinesis, nl RV, grade II diastolic dysfunction, LA mildly dilated, mild MR, mild TR, PASP at least 28 mmHg, mild AR, mild MA tele: sinus, no events 73F h/o cardiomyopathy with mild systolic dysfunction, CAD s/p stent, HTN, HLD, multiple myeloma p/w chest pain, sob, lower ext edema chest pain, acute systolic CHF exac - on IV lasix 40 mg daily - BNP >7900, similar to prior values, has mild JVD, dyspnea and edema have improved since admission - cont losartan, metoprolol - BPs consistent with baseline - treated with IV lasix 40 mg daily. held 01/30 for worsening renal fxn. - 01/31-2: mild JVD suspected, otherwise euvolemic. cont holding lasix for now in light of renal fxn and underlying myeloma--observe - 02/02 received IV lasix overnight for dyspnea, CXR with congestive changes with rales on exam. will give additional lasix dose now -02/03-8: pulm congestion improved on CXR. pt denying sob. appears euvolemic on exam. renal fxn normal. cont po lasix 40 qd for maintenance. -outpt cardio f/u 2-3 wks CAD - no signs of acute ischemia here - cont aspirin, statin, plavix, bb mult myeloma, anemia - onc following D/C TELEMETRY OK FOR DISCHARGE FROM CV POINT OF VIEW
[2019-02-07] MEDS ORDERED: PT OWN MED DRAWER 7, Y5N ONE (09:57)
[2019-02-07] MEDS: metoPROLOL SUCCINATE 25 MG TAB.SR.24H (FP) PO SCH (10:09)
[2019-02-07] MEDS: ASPIRIN 81 MG CHEWABLE TABLETS PO SCH (10:09)
[2019-02-07] MEDS: valACYclovir HCL 500 MG TABLET (FP) PO SCH (10:09)
[2019-02-07] MEDS: FUROSEMIDE 40 MG TABLET (FP) PO SCH (10:09)
[2019-02-07] MEDS: CLOPIDOGREL BISULFATE 75 MG TABLET (FP) PO SCH (10:09)
[2019-02-07] MEDS: PANTOPRAZOLE 40 MG TABLET (FP) PO SCH (10:10)
--- NOTE | 2019-02-07 12:46 | PN ---
Progress Note, Physician History of Present Illness: Pt seen and examined at bedside. She is awake and appears comfortable. She denies shortness of breath. - Current Medication List Current Medications: Active Medications Acetaminophen (Tylenol -) 650 mg PO Q6H PRN PRN Reason: PAIN LEVEL 1-5 Last Admin: 02/07/19 02:23 Dose: 650 mg Aspirin (Asa -) 81 mg PO DAILY [facility] Last Admin: 02/07/19 10:09 Dose: 81 mg Clopidogrel Bisulfate (Plavix -) 75 mg PO DAILY [facility] Last Admin: 02/07/19 10:09 Dose: 75 mg Furosemide (Lasix -) 40 mg PO DAILY [facility] Last Admin: 02/07/19 10:09 Dose: 40 mg Levothyroxine Sodium (Synthroid -) 50 mcg PO DAILY@0700 [facility] Last Admin: 02/07/19 06:01 Dose: 50 mcg Metoprolol Succinate (Toprol Xl -) 12.5 mg PO DAILY [facility] Last Admin: 02/07/19 10:09 Dose: 12.5 mg Pantoprazole Sodium (Protonix -) 40 mg PO DAILY [facility] Last Admin: 02/07/19 10:10 Dose: 40 mg Prochlorperazine Maleate (Compazine -) 10 mg PO Q6H PRN PRN Reason: NAUSEA Valacyclovir HCl (Valtrex -) 500 mg PO DAILY [facility] Last Admin: 02/07/19 10:09 Dose: 500 mg - Objective Vital Signs: Vital Signs Temperature 99.3 F 02/07/19 08:00 Pulse Rate 95 H 02/07/19 08:00 Respiratory Rate 16 02/07/19 08:00 Blood Pressure 109/67 02/07/19 06:00 O2 Sat by Pulse Oximetry (%) 98 02/06/19 21:00 Constitutional: Yes: Calm Eyes: Yes: Conjunctiva Clear HENT: Yes: Atraumatic Cardiovascular: Yes: S1, S2 Respiratory: Yes: CTA Bilaterally Gastrointestinal: Yes: Soft Genitourinary: Yes: WNL Musculoskeletal: Yes: WNL Edema: No Neurological: Yes: Oriented Psychiatric: Yes: Oriented Labs: CBC, BMP 02/07/19 05:30 02/07/19 05:30 INR, PTT INR 1.03 (0.83-1.09) 01/28/19 19:55 Assessment/Plan Current Medications Generic Name Dose Route Start Last Admin Trade Name Frealejandro PRN Reason Stop Dose Admin Acetaminophen 650 mg 01/28/19 23:59 02/07/19 02:23 Tylenol - PO 650 mg Q6H PRN Administration PAIN LEVEL 1-5 Aspirin 81 mg 01/29/19 10:00 02/07/19 10:09 Asa - PO 81 mg DAILY [facility] Administration Clopidogrel Bisulfate 75 mg 01/29/19 10:00 02/07/19 10:09 Plavix - PO 75 mg DAILY [facility] Administration Furosemide 40 mg 02/03/19 11:00 02/07/19 10:09 Lasix - PO 40 mg DAILY [facility] Administration Levothyroxine Sodium 50 mcg 01/29/19 07:00 02/07/19 06:01 Synthroid - PO 50 mcg DAILY@0700 [facility] Administration Metoprolol Succinate 12.5 mg 01/29/19 10:00 02/07/19 10:09 Toprol Xl - PO 12.5 mg DAILY [facility] Administration Pantoprazole Sodium 40 mg 01/29/19 10:00 02/07/19 10:10 Protonix - PO 40 mg DAILY [facility] Administration Prochlorperazine Maleate 10 mg 01/28/19 23:59 Compazine - PO Q6H PRN NAUSEA Valacyclovir HCl 500 mg 01/29/19 10:00 02/07/19 10:09 Valtrex - PO 500 mg DAILY [facility] Administration Impression 1. proteinuria 2. multiple myeloma 3. amyloid 4. dizziness 5. hypotension 6. HLD 7. hypothyroidism 8. anemia 9. CKD 10. hypercalcemia Plan - volume status stable - cont po lasix - pt did not tolerate arb - will need close oncology follow up Dr Hameed
[2019-02-07 13:09] VITALS: BP 106/66; PULSE 99; TEMP 98.9
--- NOTE | 2019-03-21 11:08 | EKG ---
Test Reason : Blood Pressure : / mmHG Vent. Rate : 108 BPM Atrial Rate : 108 BPM P-R Int : 160 ms QRS Dur : 098 ms QT Int : 316 ms P-R-T Axes : 000 -25 157 degrees QTc Int : 423 ms SINUS TACHYCARDIA SEPTAL INFARCT , AGE UNDETERMINED ? LEAD PLACEMENT ABNORMAL ECG WHEN COMPARED WITH ECG OF 28-JAN-2019 19:38, PREMATURE ATRIAL COMPLEXES ARE NO LONGER PRESENT T WAVE VARIATION Confirmed by HILDA PALMER, LEANDRO ([id number]) on 03/21/2019 11:08:12 AM Referred By: Confirmed By:LEANDRO STEVENS MD
== END 2019-02-07 14:24 | disposition home health service (06) | DRG 291 ==
LOC: JER 18:50 → JERBED 22:32 → OBSVTOIN 01-29 00:02 → J2W 01-29 19:18
PROVIDERS: ADMIT Internal Medicine; ATTEND Internal Medicine
PROC: 30233N1 Transfusion of Nonautologous Red Blood Cells into Peripheral Vein, Percutaneous Approach (ICD-10-PCS; principal; 2019-02-06)
DX: I13.0 Hypertensive heart and chronic kidney disease with heart failure and stage 1 through stage 4 chronic kidney disease, or unspecified chronic kidney disease (principal); I50.23 Acute on chronic systolic (congestive) heart failure; C90.00 Multiple myeloma not having achieved remission; N17.9 Acute kidney failure, unspecified; I25.10 Atherosclerotic heart disease of native coronary artery without angina pectoris; R80.9 Proteinuria, unspecified; E88.09 Other disorders of plasma-protein metabolism, not elsewhere classified; N18.9 Chronic kidney disease, unspecified; E83.52 Hypercalcemia; I95.9 Hypotension, unspecified; E78.5 Hyperlipidemia, unspecified; E03.9 Hypothyroidism, unspecified; Z98.61 Coronary angioplasty status; I42.9 Cardiomyopathy, unspecified; R07.89 Other chest pain; E87.70 Fluid overload, unspecified; R74.8 Abnormal levels of other serum enzymes; D63.0 Anemia in neoplastic disease
CPT/HCPCS: 36415; 36430; 71045-TC-FY; 80048; 80053; 81003; 82550; 82570; 83880; 84156; 84300; 84484; 84540; 85025; 85027; 85379; 85610; 85730; 86850; 86900; 86901; 86922; 90670; 93005; 93010; 97116-GP; 97161-GP; 99285-25; G0378; J1644; P9038; P9058

== ENCOUNTER 2019-02-09 07:10 | Day surgery (SDC) | payer OTHER ==
[2019-02-09] MEDS ORDERED: DEXAMETHASONE 4 MG TABLET (FP) PO ONE (08:00)
[2019-02-09] MEDS ORDERED: ONDANSETRON INJECTION 8 MG in SODIUM CHLORIDE 50 ML IVPB ONE (08:00)
[2019-02-09] MEDS ORDERED: BORTEZOMIB (VELCADE) 2.5 MG/ML SUB-Q INJECTION SQ ONE (08:15)
[2019-02-09 10:45] LABS: BASO % 0.3 % (0-2.0); EOS % 0.4 % (0-4.5); HEMOGLOBIN 9.2 GM/dL (10.7-15.3); LYMPH % 35.5 % (8-40); MCH 31.6 pg (25.7-33.7); MEAN CELL VOLUME 92.9 fl (80-96); MEAN PLT VOLUME 8.3 fl (7.5-11.1); MONO % 9.4 % (3.8-10.2); NEUT % 54.4 % (42.8-82.8); PLATELET COUNT 205 K/MM3 (134-434); RBC 2.91 M/mm3 (3.60-5.2); RDW 19.3 % (11.6-15.6); WHITE BLOOD COUNT 4.7 K/mm3 (4.0-10.0)
[2019-02-09 10:58] LABS: ALBUMIN 1.7 g/dl (3.4-5.0); BILIRUBIN,DIRECT 0.1 mg/dL (0.0-0.2); BILIRUBIN,TOTAL 0.3 mg/dL (0.2-1); MAGNESIUM 2.4 mg/dL (1.8-2.4); TOT PROT 9.1 g/dl (6.4-8.2)
[2019-02-09 11:04] LABS: ALBUMIN 1.7 g/dl (3.4-5.0); ALK PHOS 50 U/L (45-117); ANION GAP 10 MMOL/L (8-16); BILIRUBIN,TOTAL 0.3 mg/dL (0.2-1); BLOOD UREA NITROGEN 20 mg/dL (7-18); CALCIUM 8.8 mg/dL (8.5-10.1); CHLORIDE 107 mmol/L (98-107); CO2 22 mmol/L (21-32); CREATININE 0.9 mg/dL (0.55-1.3); GLUCOSE,RANDOM 95 mg/dL (74-106); POTASSIUM 4.2 mmol/L (3.5-5.1); SGOT/AST 11 U/L (15-37); SGPT/ALT 12 U/L (13-61); SODIUM 140 mmol/L (136-145); TOT PROT 9.1 g/dl (6.4-8.2)
[2019-02-09] MEDS ORDERED: ONDANSETRON 8 MG TABLET (FP) PO ONE (11:30)
[2019-02-09] MEDS ORDERED: ONDANSETRON 4 MG TABLET PO ONE (11:37)
[2019-02-09 17:43] VITALS: BP 112/68; PULSE 98; TEMP 99
== END 2019-02-09 12:10 | disposition home or self-care (01) ==
LOC: JONCCHEMO 07:10 → J7W 11:29 → JONCCHEMO 12:10
PROVIDERS: ATTEND Internal Medicine Hematology & Oncology
DX: Z51.11 Encounter for antineoplastic chemotherapy (principal); C90.00 Multiple myeloma not having achieved remission
CPT/HCPCS: 36415; 80053; 80076; 83735; 85025; 96401; J9041

== ENCOUNTER 2019-02-16 07:00 | Day surgery (SDC) | payer OTHER ==
[2019-02-16] MEDS ORDERED: DEXAMETHASONE 4 MG TABLET (FP) PO ONE (08:00)
[2019-02-16] MEDS ORDERED: ONDANSETRON 4 MG TABLET PO ONE (08:00)
[2019-02-16] MEDS ORDERED: BORTEZOMIB (VELCADE) 2.5 MG/ML SUB-Q INJECTION SQ ONE (08:30)
[2019-02-16 10:05] LABS: BASO % 0.3 % (0-2.0); EOS % 0.4 % (0-4.5); HEMATOCRIT 27.7 % (32.4-45.2); HEMOGLOBIN 9.3 GM/dL (10.7-15.3); LYMPH % 33.9 % (8-40); MCH 32.2 pg (25.7-33.7); MCHC 33.6 g/dl (32.0-36.0); MEAN CELL VOLUME 95.8 fl (80-96); MEAN PLT VOLUME 9.5 fl (7.5-11.1); MONO % 11.2 % (3.8-10.2); NEUT % 54.2 % (42.8-82.8); PLATELET COUNT 178 K/MM3 (134-434); RBC 2.89 M/mm3 (3.60-5.2); RDW 19.4 % (11.6-15.6); WHITE BLOOD COUNT 5.1 K/mm3 (4.0-10.0)
[2019-02-16 10:40] LABS: ALBUMIN 1.6 g/dl (3.4-5.0); ALK PHOS 54 U/L (45-117); ANION GAP 8 MMOL/L (8-16); BILIRUBIN,DIRECT 0.1 mg/dL (0.0-0.2); BILIRUBIN,TOTAL 0.3 mg/dL (0.2-1); BLOOD UREA NITROGEN 23 mg/dL (7-18); CALCIUM 8.8 mg/dL (8.5-10.1); CHLORIDE 106 mmol/L (98-107); CO2 24 mmol/L (21-32); CREATININE 0.9 mg/dL (0.55-1.3); GLUCOSE,RANDOM 80 mg/dL (74-106); LDH 162 U/L (84-246); MAGNESIUM 2.4 mg/dL (1.8-2.4); POTASSIUM 4.2 mmol/L (3.5-5.1); SGOT/AST 11 U/L (15-37); SGPT/ALT 14 U/L (13-61); SODIUM 138 mmol/L (136-145); TOT PROT 9.1 g/dl (6.4-8.2); URIC ACID 7.1 mg/dL (2.6-7.2)
[2019-02-16 17:16] VITALS: TEMP 98.9
[2019-02-16 17:17] VITALS: BP 86/49; PULSE 82
== END 2019-02-16 11:45 | disposition home or self-care (01) ==
LOC: JONCCHEMO 07:00 → J7W 10:51 → JONCCHEMO 11:45
PROVIDERS: ATTEND Internal Medicine Hematology & Oncology
DX: Z51.11 Encounter for antineoplastic chemotherapy (principal); C90.00 Multiple myeloma not having achieved remission
CPT/HCPCS: 36415; 80048; 80076; 83615; 83735; 84550; 85025; 96401; J9041

== ENCOUNTER 2019-02-23 07:04 | Day surgery (SDC) | payer OTHER ==
[2019-02-23] MEDS ORDERED: ONDANSETRON 4 MG TABLET PO ONE (09:00)
[2019-02-23] MEDS ORDERED: DEXAMETHASONE 4 MG TABLET (FP) PO ONE (09:00)
[2019-02-23] MEDS ORDERED: BORTEZOMIB (VELCADE) 2.5 MG/ML SUB-Q INJECTION SQ ONE (09:15)
[2019-02-23 10:15] LABS: BASO % 0.2 % (0-2.0); EOS % 1.4 % (0-4.5); HEMATOCRIT 25.8 % (32.4-45.2); HEMOGLOBIN 8.5 GM/dL (10.7-15.3); LYMPH % 21.9 % (8-40); MCH 31.7 pg (25.7-33.7); MCHC 33.1 g/dl (32.0-36.0); MEAN CELL VOLUME 95.7 fl (80-96); MEAN PLT VOLUME 10.2 fl (7.5-11.1); MONO % 7.3 % (3.8-10.2); NEUT % 69.2 % (42.8-82.8); PLATELET COUNT 112 K/MM3 (134-434); RDW 19.2 % (11.6-15.6); WHITE BLOOD COUNT 4.9 K/mm3 (4.0-10.0)
[2019-02-23 10:46] LABS: ALBUMIN 1.8 g/dl (3.4-5.0); ALK PHOS 56 U/L (45-117); ANION GAP 10 MMOL/L (8-16); BILIRUBIN,DIRECT 0.1 mg/dL (0.0-0.2); BILIRUBIN,TOTAL 0.4 mg/dL (0.2-1); BLOOD UREA NITROGEN 20 mg/dL (7-18); CALCIUM 9.5 mg/dL (8.5-10.1); CHLORIDE 105 mmol/L (98-107); CO2 23 mmol/L (21-32); CREATININE 0.9 mg/dL (0.55-1.3); GLUCOSE,RANDOM 96 mg/dL (74-106); LDH 155 U/L (84-246); MAGNESIUM 1.9 mg/dL (1.8-2.4); POTASSIUM 4.2 mmol/L (3.5-5.1); SGOT/AST 13 U/L (15-37); SGPT/ALT 13 U/L (13-61); SODIUM 138 mmol/L (136-145); TOT PROT 8.4 g/dl (6.4-8.2); URIC ACID 5.3 mg/dL (2.6-7.2)
[2019-02-23 13:43] VITALS: BP 113/50; PULSE 77; TEMP 98.3
== END 2019-02-23 13:35 | disposition home or self-care (01) ==
LOC: JONCCHEMO 07:04 → J7W 13:07 → JONCCHEMO 13:35
PROVIDERS: ATTEND Internal Medicine Hematology & Oncology
DX: Z51.11 Encounter for antineoplastic chemotherapy (principal); C90.00 Multiple myeloma not having achieved remission
CPT/HCPCS: 36415; 80048; 80076; 83615; 83735; 84550; 85025; 96401; J9041

== ENCOUNTER 2019-02-28 16:16 | Emergency (ER) | payer OTHER ==
--- NOTE | 2019-02-28 16:32 | PDOC ---
Rapid Medical Evaluation Chief Complaint: Loss of Appetite Time Seen by Provider: 02/28/19 16:28 Medical Evaluation: Allergies Allergy/AdvReac Type Severity Reaction Status Date / Time Penicillins Allergy Severe Rash Verified 02/28/19 16:28 02/28/19 16:29 Pt presents to the ED with c/o: weakness and poor appetite x 3 days, hx MM, no other complaints Pt on brief exam: BP 88/43, LCTA, no abd tenderness Pt ordered for: labs, urine, ekg, IV, Pt to proceed to the ED Discharge Disposition - Diagnosis Weakness - Referrals - Patient Instructions - Post Discharge Activity
[2019-02-28] MEDS ORDERED: SODIUM CHLORIDE 1,000 ML IV STA (16:33)
[2019-02-28 16:34] VITALS: PULSE 74; BMI 21.8
[2019-02-28 17:44] LABS: BASO % 0.1 % (0-2.0); EOS % 1.3 % (0-4.5); HEMATOCRIT 26.9 % (32.4-45.2); HEMOGLOBIN 8.9 GM/dL (10.7-15.3); LYMPH % 26.8 % (8-40); MCH 31.5 pg (25.7-33.7); MCHC 33.2 g/dl (32.0-36.0); MEAN CELL VOLUME 95.1 fl (80-96); MEAN PLT VOLUME 10.7 fl (7.5-11.1); MONO % 18.2 % (3.8-10.2); NEUT % 53.6 % (42.8-82.8); RBC 2.83 M/mm3 (3.60-5.2); RDW 18.4 % (11.6-15.6); WHITE BLOOD COUNT 3.5 K/mm3 (4.0-10.0)
[2019-02-28 18:17] LABS: PLATELET COUNT 88 K/MM3 (134-434); PLATELET ESTIMATE DECREASED
[2019-02-28 18:22] LABS: ALBUMIN 1.8 g/dl (3.4-5.0); ALK PHOS 55 U/L (45-117); ANION GAP 9 MMOL/L (8-16); BILIRUBIN,TOTAL 0.3 mg/dL (0.2-1); BLOOD UREA NITROGEN 25 mg/dL (7-18); CALCIUM 8.6 mg/dL (8.5-10.1); CHLORIDE 105 mmol/L (98-107); CO2 23 mmol/L (21-32); CREATININE 0.9 mg/dL (0.55-1.3); GLUCOSE,RANDOM 88 mg/dL (74-106); LIPASE 316 U/L (73-393); SGOT/AST 12 U/L (15-37); SGPT/ALT 14 U/L (13-61); SODIUM 137 mmol/L (136-145); TOT PROT 7.8 g/dl (6.4-8.2)
[2019-02-28] MEDS ORDERED: morphine SULFATE 4 MG/ML VIAL IVPUSH ONE (18:43)
--- NOTE | 2019-02-28 18:50 | PDOC ---
Documentation entered by Nikita Urias SCRIBE, acting as scribe for Donald Denise MD. Donald Denise MD: This documentation has been prepared by the Adonay bill Matthew, SCRIBE, under my direction and personally reviewed by me in its entirety. I confirm that the documentation accurately reflects all work, treatment, procedures, and medical decision making performed by me. Attending Attestation - Resident Resident Name: Gregorio Beltran - ED Attending Attestation I have performed the following: I have examined & evaluated the patient, The case was reviewed & discussed with the resident, I agree w/resident's findings & plan, Exceptions are as noted - HPI HPI: 02/28/19 18:49 Patient is a 73 year old female with a significant past medical history of CAD ( s/p HOLLY D1 this month after NSTEMI), CHF (Chronic systolic CHF, mildly reduced LV function with EF 45%), HTN, Hyperlipidemia, Asthma, hiatal hernia; rectal polyp, Renal Insufficiency, proteinuria, Multiple Myeloma on chemo, Depression, and Hypothyroidism who presents to the ED with complaints of weakness and poor appetite that began x3 days ago. Patient reports experiencing general body weakness as well as associated decreased appetite and right sided facial swelling that she states began x3 days ago. She reports coming into the ED for further evaluation after symptoms failed to subside over time. Denies chest pain, Sob. Denies nausea, vomiting. Denies fevers, chills. Denies constipation, diarrhea. Denies contact with sick individuals, out of state travellings. Denies any other symptoms. Allergies: Penicillin Social history: Former smoker (last 1997), No alcohol use, no illicit drugs. Surgical history: Breast Biopsy (right for cysts), Hernia Repair (laparoscopic hiatal), Hysterectomy, Tubal Ligation PMD: None - Physicial Exam PE: 02/28/19 18:49 Vitals: Triage Vital signs reviewed General Appearance: no acute distress, well nourished well developed Head: Atraumatic Eyes: Pupils equal reactive round, extraocular movement intact Ears: TMs normal bilaterally Nose: Nares patent bilaterally; no nasal congestion Throat: Posterior oropharynx without erythema, mucous membranes moist Neck: Supple; No Nuchal rigidity Chest Wall: Nontender Cardiac: Regular rate and rhythm, no murmurs, no rubs, no gallops Lungs: Clear to auscultation bilateral, good air movement bilaterally Abdomen: Soft, non distended, normal bowel sounds, non tender to palpation Genitourinary: Rectal: Exam deferred Extremities: Full range of motion to all extremities, no cyanosis, clubbing, or edema Skin: Warm and dry, no rashes or lesions, no rash, no petechiae Neuro: AOX3; Cranial Nerves 2-12 grossly intact, Strength intact to all extremities, Sensation intact to all extremities, gait normal Psych: Normal mood, normal affect - Medical Decision Making 02/28/19 19:22 Patient with generalized weakness External Ear infection but has not been compliant with antibiotics Labs at baseline blood pressure improved patient eating and drinking at the bedside states she feels comfortable returning home we'll take her antibiotics and will follow-up with her primary care provider this week
[2019-02-28 18:53] VITALS: BP 101/60; TEMP 98.4
[2019-02-28] MEDS ORDERED: FLUCONAZOLE 200 MG/NS 100 ML IVPB ONE (18:56)
--- NOTE | 2019-02-28 19:21 | PDOC ---
History of Present Illness - General Chief Complaint: Loss of Appetite Stated Complaint: chest hurt Time Seen by Provider: 02/28/19 16:28 History Source: Patient Exam Limitations: No Limitations - History of Present Illness Initial Comments: 02/28/19 19:12 73 yo female pmh CAD (S/P stent after NSTEMI 1 month ago), CHF, HTN, HLD, multiple myeloma (on chemo) and hypothyroidsm presents to the ED with 3 days of poor appetite and general body weakness. Pt states she has been eating soup and drinking a lot of water recently however has not eating solid foods. Pt also has right sided facial and ear swelling for over 1 week, saw Primary Doctor and given levofloxacin. Pt states she has not taken any antibiotics due to fear of side effects. States the swelling increased and had minor drainage from the outer ear. Denies F/C/N/V, CP, SOB, abdominal pain, changes in bowel or bladder habits, sick contacts, recent travel. Past History - Past Medical History Allergies/Adverse Reactions: Allergies Allergy/AdvReac Type Severity Reaction Status Date / Time Penicillins Allergy Severe Rash Verified 02/28/19 16:28 Home Medications: Ambulatory Orders Owanka-3/Dha/Epa/Fish Oil [Owanka 3 500 Softgel] 1 each PO DAILY 10/11/18 Allopurinol [Zyloprim -] 300 mg PO DAILY #30 tablet 11/09/18 Pantoprazole Sodium [Protonix -] 40 mg PO DAILY #30 tablet.ec 11/09/18 Aspirin [ASA -] 81 mg PO DAILY 12/30/18 Acetaminophen [Tylenol .Regular Strength -] 650 mg PO Q6H PRN #100 tablet Albuterol 2.5/Ipratropium 0.5 [Duoneb -] 1 amp NEB Q6H PRN #30 amp 01/07/19 Clopidogrel Bisulfate [Plavix -] 75 mg PO DAILY #30 tablet 01/07/19 Metoprolol Succinate [Toprol XL -] 12.5 mg PO DAILY #30 tab.sr.24h 01/07/19 Valacyclovir HCl [Valtrex -] 500 mg PO DAILY #30 tablet 01/07/19 Furosemide [Lasix -] 40 mg PO DAILY 01/28/19 Levothyroxine [Synthroid -] 50 mcg PO DAILY@0700 01/28/19 Potassium Chloride [K-Dur -] 10 meq PO DAILY 01/28/19 Prochlorperazine Maleate [Compazine] 10 mg PO Q6H PRN 01/28/19 Furosemide [Lasix -] 40 mg PO DAILY tablet 02/07/19 Furosemide [Lasix] 40 mg PO DAILY #30 tablet 02/07/19 Anemia: Yes Asthma: Yes Cancer: Yes (MULTIPLE MYELOMA) Cardiac Disorders: Yes (CHEST PAIN, SOB,CO, stent) CVA: No COPD: No CHF: Yes Dementia: No Diabetes: Yes GI Disorders: Yes (HIATAL HERNIA REPAIR) Disorders: No HTN: Yes Hypercholesterolemia: Yes Liver Disease: Yes (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) Seizures: No Thyroid Disease: Yes (hypo) - Surgical History Abdominal Surgery: (Yes, HIATAL HERNIA) Appendectomy: No Cardiac Surgery: Yes (stent placement) Cholecystectomy: No Lung Surgery: No Neurologic Surgery: No Orthopedic Surgery: Yes (carpal tunnel ) - Immunization History Immunization Up to Date: Yes - Suicide/Smoking/Psychosocial Hx Smoking History: Never smoked Have you smoked in the past 12 months: No Number of Cigarettes Smoked Daily: 5 If you are a former smoker, when did you quit?: 1970 Cigars Per Day: 4 'Breaking Loose' booklet given: 01/29/19 Hx Alcohol Use: No Drug/Substance Use Hx: No Substance Use Type: None Hx Substance Use Treatment: No *Physical Exam - Vital Signs Last Vital Signs Temp Pulse Resp BP Pulse Ox 98.4 F 74 17 101/60 100 02/28/19 18:51 02/28/19 18:51 02/28/19 18:51 02/28/19 18:51 02/28/19 18:51 ED Treatment Course - LABORATORY CBC & Chemistry Diagram: 02/28/19 17:10 02/28/19 17:24 - ADDITIONAL ORDERS Additional order review: Laboratory Results 02/28/19 02/28/19 17:24 17:24 Sodium 137 Potassium 4.0 Chloride 105 Carbon Dioxide 23 Anion Gap 9 BUN 25 H Creatinine 0.9 Creat Clearance w eGFR 61.21 Random Glucose 88 Calcium 8.6 Magnesium 2.0 Total Bilirubin 0.3 AST 12 L ALT 14 Alkaline Phosphatase 55 Creatine Kinase 56 Troponin I 0.05 Total Protein 7.8 Albumin 1.8 L Lipase 316 02/28/19 17:10 RBC 2.83 L MCV 95.1 MCHC 33.2 RDW 18.4 H MPV 10.7 Neutrophils % 53.6 D Lymphocytes % 26.8 D Monocytes % 18.2 H D Eosinophils % 1.3 Basophils % 0.1 - Medications Given in the ED: ED Medications Discontinued Medications Generic Name Dose Route Start Last Admin Trade Name [place] PRN Reason Stop Dose Admin Sodium Chloride 1,000 mls @ 1,000 mls/hr 02/28/19 16:33 02/28/19 17:30 Normal Saline - IV 02/28/19 17:32 1,000 mls/hr ASDIR STA Administration *DC/Admit/Observation/Transfer Diagnosis at time of Disposition: Weakness, Loss of appetite - Discharge Dispostion Disposition: HOME Condition at time of disposition: Stable Decision to Admit order: No - Referrals - Patient Instructions Printed Discharge Instructions: DI for Poor Appetite Additional Instructions: Please see your Primary Doctor within the next 48 hours. You must take your antibiotics for your face and ear infection or else it will get worse and spread. Make sure to continue eating and drinking. Return to the ER for new or concerning symptoms including but not limited to: high fevers, inability to eat or drink, further pain/swelling or drainage from the ear even though you continue taking the antibiotics. Thank you - Post Discharge Activity
--- NOTE | 2019-03-01 14:20 | EKG ---
Test Reason : Blood Pressure : / mmHG Vent. Rate : 073 BPM Atrial Rate : 073 BPM P-R Int : 144 ms QRS Dur : 098 ms QT Int : 388 ms P-R-T Axes : 051 -25 201 degrees QTc Int : 427 ms SINUS RHYTHM WITH MARKED SINUS ARRHYTHMIA LEFT ATRIAL ENLARGEMENT LEFT VENTRICULAR HYPERTROPHY WITH REPOLARIZATION ABNORMALITY ABNORMAL ECG Confirmed by MD NALLELY, ABDIAS ([id number]) on 03/01/2019 2:20:39 PM Referred By: Confirmed By:ABDIAS BROWNING MD
== END 2019-02-28 19:49 | disposition home or self-care (01) ==
LOC: JER 16:16
PROC: 3E0337Z Introduction of Electrolytic and Water Balance Substance into Peripheral Vein, Percutaneous Approach (ICD-10-PCS; principal; 2019-02-28)
PROC: 3E03329 Introduction of Other Anti-infective into Peripheral Vein, Percutaneous Approach (ICD-10-PCS; 2019-02-28)
DX: R53.1 Weakness (principal); C90.00 Multiple myeloma not having achieved remission; I25.10 Atherosclerotic heart disease of native coronary artery without angina pectoris; I11.0 Hypertensive heart disease with heart failure; I50.22 Chronic systolic (congestive) heart failure; I25.2 Old myocardial infarction; Z95.5 Presence of coronary angioplasty implant and graft; E11.9 Type 2 diabetes mellitus without complications; E78.5 Hyperlipidemia, unspecified; J45.909 Unspecified asthma, uncomplicated; E03.9 Hypothyroidism, unspecified; F32.9 Major depressive disorder, single episode, unspecified; Z87.891 Personal history of nicotine dependence; Z88.0 Allergy status to penicillin
CPT/HCPCS: 36415; 71045-TC-FY; 80053; 82550; 83690; 83735; 84484; 85025; 86850; 86900; 86901; 93005; 93010; 96361; 96365; 99282-25; J7030

== ENCOUNTER 2019-03-02 09:39 | Inpatient (IN) | payer OTHER ==
--- NOTE | 2019-03-02 10:20 | PDOC ---
History of Present Illness - General Chief Complaint: Blood Pressure Problem Stated Complaint: RAPID RESPONSE LOW BLOOD PRESSURE Time Seen by Provider: 03/02/19 10:19 History Source: Patient Exam Limitations: No Limitations - History of Present Illness Initial Comments: 03/02/19 12:02 02/28/19 18:49 Ms Donovan is a 73 year old female with a significant past medical history of CAD (s/p HOLLY D1 this month after NSTEMI), CHF (Chronic systolic CHF, mildly reduced LV function with EF 45%), HTN, Hyperlipidemia, Asthma, hiatal hernia, rectal polyp, Renal Insufficiency, proteinuria, Multiple Myeloma on velcade/ decadron, revlamide, and Hypothyroidism who presents to the ED from oncology due to dizziness and low blood pressure The patient had right ear pain for more than 1 week, was seen by PMD who started levaquin but patient did not start taking it She was seen in the ER for weakness and dischargd to home in stable condition Pt went to Oncology today but upon entry to the room, she noted generalized weakness, dizziness and vital signs revealed hypotension Pt has noted drainage from her right ear x 2 days She denies fevers or chills She denies headache She denies chest pain, shortness of breath, palpitations She denies nausea, vomiting, abdominal pain Allergies: Penicillin Social history: Former smoker (last 1997), No alcohol use, no illicit drugs. Surgical history: Breast Biopsy (right for cysts), Hernia Repair (laparoscopic hiatal), Hysterectomy, Tubal Ligation PMD: None ROS: GENERAL/CONSTITUTIONAL: No: fever, chills, weakness, loss of appetite. HEAD, EYES, EARS, NOSE AND THROAT: Yes: right ear pain, right ear drainage No: change in vision, discharge, sore throat, throat swelling. CARDIOVASCULAR: Yes: weakness, dizziness No: chest pain, lightheadedness, palpitations, syncope RESPIRATORY: No: cough, shortness of breath, wheezing, hemoptysis, stridor. GASTROINTESTINAL: No: nausea, vomiting, diarrhea, abdominal pain GENITOURINARY: No: dysuria, hematuria, frequency, urgency, flank pain. MUSCULOSKELETAL: No: back pain, neck pain, joint pain, muscle swelling or pain SKIN AND BREASTS: No: lesions, pallor, rash or easy bruising. NEUROLOGIC: Yes: generalized weakness No: headache, vertigo, paresthesias, weakness ENDOCRINE: No: unexplained weight gain or loss HEMATOLOGIC/LYMPHATIC: No: anemia, easy bleeding, swelling nodes. PE: Vitals: Triage Vital signs reviewed General Appearance: no acute distress, well nourished well developed Head: Atraumatic Eyes: Pupils equal reactive round, extraocular movement intact Ears: Right external auditory canal swollen, wet, drainage noted, debris in canal, TM not visualized Left TM nml Nose: Nares patent bilaterally; no nasal congestion Throat: Posterior oropharynx without erythema, mucous membranes moist Neck: Supple; No Nuchal rigidity Chest Wall: Nontender Cardiac: Regular rate and rhythm, no murmurs, no rubs, no gallops Lungs: Clear to auscultation bilateral, good air movement bilaterally Abdomen: Soft, non distended, normal bowel sounds, non tender to palpation Extremities: Full range of motion to all extremities Skin: Warm and dry, no rashes or lesions, no rash, no petechiae Neuro: AOX3; Cranial Nerves 2-12 grossly intact, Strength intact to all extremities, Sensation intact to all extremities, gait normal Psych: Normal mood, normal affect 03/02/19 12:39 Past History - Past Medical History Allergies/Adverse Reactions: Allergies Allergy/AdvReac Type Severity Reaction Status Date / Time Penicillins Allergy Severe Rash Verified 02/28/19 16:28 Home Medications: Ambulatory Orders [place]-3/Dha/Epa/Fish Oil [[place] 3 500 Softgel] 1 each PO DAILY 10/11/18 Allopurinol [Zyloprim -] 300 mg PO DAILY #30 tablet 11/09/18 Pantoprazole Sodium [Protonix -] 40 mg PO DAILY #30 tablet.ec 11/09/18 Aspirin [ASA -] 81 mg PO DAILY 12/30/18 Acetaminophen [Tylenol .Regular Strength -] 650 mg PO Q6H PRN #100 tablet Albuterol 2.5/Ipratropium 0.5 [Duoneb -] 1 amp NEB Q6H PRN #30 amp 01/07/19 Clopidogrel Bisulfate [Plavix -] 75 mg PO DAILY #30 tablet 01/07/19 Metoprolol Succinate [Toprol XL -] 12.5 mg PO DAILY #30 tab.sr.24h 01/07/19 Valacyclovir HCl [Valtrex -] 500 mg PO DAILY #30 tablet 01/07/19 Levothyroxine [Synthroid -] 50 mcg PO DAILY@0700 01/28/19 Potassium Chloride [K-Dur -] 10 meq PO DAILY 01/28/19 Prochlorperazine Maleate [Compazine] 10 mg PO Q6H PRN 01/28/19 Furosemide [Lasix] 40 mg PO DAILY #30 tablet 02/07/19 Anemia: Yes Asthma: Yes Cancer: Yes (MULTIPLE MYELOMA) Cardiac Disorders: Yes (CHEST PAIN, SOB,NC, stent) CVA: No COPD: No CHF: Yes Dementia: No Diabetes: Yes GI Disorders: Yes (HIATAL HERNIA REPAIR) Disorders: No HTN: Yes Hypercholesterolemia: Yes Liver Disease: Yes (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) Seizures: No Thyroid Disease: Yes (hypo) - Surgical History Abdominal Surgery: (Yes, HIATAL HERNIA) Appendectomy: No Cardiac Surgery: Yes (stent placement) Cholecystectomy: No Lung Surgery: No Neurologic Surgery: No Orthopedic Surgery: Yes (carpal tunnel ) - Immunization History Immunization Up to Date: Yes - Suicide/Smoking/Psychosocial Hx Smoking History: Unknown if ever smoked Have you smoked in the past 12 months: No Number of Cigarettes Smoked Daily: 5 If you are a former smoker, when did you quit?: 1970 Cigars Per Day: 4 Information on smoking cessation initiated: No 'Breaking Loose' booklet given: 01/29/19 Hx Alcohol Use: No Drug/Substance Use Hx: No Substance Use Type: None Hx Substance Use Treatment: No *Physical Exam - Vital Signs Last Vital Signs Temp Pulse Resp BP Pulse Ox 98.3 F 71 18 102/56 L 99 03/02/19 09:55 03/02/19 09:55 03/02/19 09:55 03/02/19 09:55 03/02/19 09:55 ED Treatment Course - LABORATORY CBC & Chemistry Diagram: 03/02/19 10:22 03/02/19 11:50 Medical Decision Making - Critical Care Time Total Critical Care Time (minutes): 60 Critical Care Statement: The care of this patient involved high complexity decision making to prevent further life threatening deterioration of the patient 's condition and/or to evaluate & treat vital organ system(s) failure or risk of failure. - Medical Decision Making 03/02/19 10:21 EKG - NSR rate of 68 bpm, axis nml, intervals nml, no st elevation, LVH with strain pattern 03/02/19 12:07 Pt presents with low blood pressure No fevers Will gently hydrate Will do labs, blood cultures, ekg, Re Assess 03/02/19 12:07 Laboratory Tests 02/28/19 03/02/19 17:10 10:22 WBC 3.5 L 4.3 Hgb 8.9 L 8.4 L Hct 26.9 L 25.3 L Plt Count 88 L D 146 D NS 250 cc bolus done BP 03/02/19 12:10 CXR- cardiomegaly, no large effusion, no congestive changes 03/02/19 12:[address] Stuart Will still transfuse 1 Unit PRBCs 03/02/19 12:43 Laboratory Tests 02/28/19 03/02/19 17:24 11:50 Sodium 140 Potassium 4.3 Chloride 109 H Carbon Dioxide 24 BUN 25 H 22 H Creatinine 0.9 0.9 Random Glucose 88 89 03/02/19 13:[address] Puckett Will admit Text sent to Dr Miguel for consult CT demonstrates: bilateral soft tissue thickening of the external auditory canals Mild cortical irregularity noted along the EAC bilaterally suggestive of subtle bone erosion, suggestive of malignant otitis externa These findings were relayed to Dr Miguel He state either pt can be transferred to tertiary care center with inhouse ENT OR pt can stay here with ID consult and he will see this patient on Thursday He is concerned about the CT read of malignant otitis externa given her immunosuppressed state Dr Johnson consulted Overall pt is well appearing Dr miguel's concerns relayed to Dr Puckett I have offered to transfer this patient (pt already upstairs) She will be coming to the hospital in 1 hour and make a decision on transfer Clinical Impression: Otitis Externa, intial presentation *DC/Admit/Observation/Transfer Diagnosis at time of Disposition: Dehydration Hypotension Qualifiers: Hypotension type: other hypotension type Qualified Code(s): I95.89 - Other hypotension Otitis externa Qualifiers: Otitis externa type: unspecified type Chronicity: acute Laterality: right Qualified Code(s): H60.501 - Unspecified acute noninfective otitis externa, right ear Otitis media with rupture of tympanic membrane Qualifiers: Laterality: right Qualified Code(s): H66.91 - Otitis media, unspecified, right ear - Discharge Dispostion Condition at time of disposition: Stable Decision to Admit order: Yes - Referrals - Patient Instructions - Post Discharge Activity
[2019-03-02] MEDS ORDERED: SODIUM CHLORIDE 250 ML IV STA (10:47)
[2019-03-02 10:55] LABS: BASO % 0.2 % (0-2.0); EOS % 1.3 % (0-4.5); HEMATOCRIT 25.3 % (32.4-45.2); HEMOGLOBIN 8.4 GM/dL (10.7-15.3); LYMPH % 23.3 % (8-40); MCH 31.9 pg (25.7-33.7); MCHC 33.2 g/dl (32.0-36.0); MEAN PLT VOLUME 10.6 fl (7.5-11.1); MONO % 17.4 % (3.8-10.2); NEUT % 57.8 % (42.8-82.8); PLATELET COUNT 146 K/MM3 (134-434); RBC 2.63 M/mm3 (3.60-5.2); RDW 19.2 % (11.6-15.6); WHITE BLOOD COUNT 4.3 K/mm3 (4.0-10.0)
[2019-03-02] MEDS ORDERED: VANCOMYCIN 1,000 MG in DEXTROSE 5%-WATER - 250 ML IVPB ONE (10:55)
[2019-03-02] MEDS ORDERED: OFLOXACIN 0.3% OTIC SOLUTION 5 ML BOTTLE AD ONE (10:55)
[2019-03-02] MEDS ORDERED: VANCOMYCIN 1 GRAM (PRE-DOCKED) 1,000 MG/250 ML BAG IVPB ONE (11:09)
[2019-03-02] MEDS ORDERED: SODIUM CHLORIDE 1,000 ML IV STA (12:24)
[2019-03-02 12:36] LABS: ALBUMIN 1.8 g/dl (3.4-5.0); ALK PHOS 45 U/L (45-117); ANION GAP 7 MMOL/L (8-16); BILIRUBIN,TOTAL 0.5 mg/dL (0.2-1); BLOOD UREA NITROGEN 22 mg/dL (7-18); CALCIUM 7.7 mg/dL (8.5-10.1); CHLORIDE 109 mmol/L (98-107); CO2 24 mmol/L (21-32); CREATININE 0.9 mg/dL (0.55-1.3); GLUCOSE,RANDOM 89 mg/dL (74-106); POTASSIUM 4.3 mmol/L (3.5-5.1); SGOT/AST 14 U/L (15-37); SGPT/ALT 12 U/L (13-61); SODIUM 140 mmol/L (136-145); TOT PROT 6.8 g/dl (6.4-8.2)
[2019-03-02 12:41] LABS: INR 1.25 (0.83-1.09); PROTHROMBIN TIME (PATIENT) 14.8 SEC (9.7-13.0)
--- NOTE | 2019-03-02 18:16 | PN ---
Progress Note (short form) - Note Progress Note: ID consult dictated imp/reccd 73 yo female with myeloma with right ear pain and drainage no fevers alert afebrile she is hungry minimal pain ct scan temporaal bones pending ent evaluatin pending pen allergy- tolerates cephalosporins otitis- ?externa, ?perforation f/u ct scan vanco/cefepime ent eval Multiple myeloma- f/u oncology cad- s/p stent Problem List - Problems (1) Otitis Code(s): H66.90 - OTITIS MEDIA, UNSPECIFIED, UNSPECIFIED EAR (2) Multiple myeloma Code(s): C90.00 - MULTIPLE MYELOMA NOT HAVING ACHIEVED REMISSION (3) Penicillin allergy Code(s): Z88.0 - ALLERGY STATUS TO PENICILLIN (4) CAD (coronary artery disease) Code(s): I25.10 - ATHSCL HEART DISEASE OF [place] CORONARY ARTERY W/O ANG PCTRS Qualifiers:
--- NOTE | 2019-03-02 19:05 | CONS ---
DATE OF CONSULTATION: DATE OF DICTATION: 03/02/2019 INFECTIOUS DISEASE CONSULTATION REQUESTING PHYSICIAN: Emergency room CONSULTING PHYSICIAN: Keyona Anaya M.D. HISTORY OF PRESENT ILLNESS: This is a 73-year-old woman who was sent today to the emergency room after there was a rapid response to low blood pressure. She had gone to see her oncologist. She has a history of multiple myeloma, coronary artery disease status post recent stent, history of heart failure, hypertension, hyperlipidemia, and multiple myeloma. She apparently has had right ear pain for more than a week. She was started on Levaquin, which it appears she did not take. She reports that about a week ago she had noted the pain and mentioned it when she came to oncology clinic. She was seen on the in the ER as well for generalized body weakness and poor appetite. She also complained of right ear discomfort. She was evaluated in the ER and discharged to resume the Levaquin, which she had never started. She today due to the rapid response was reevaluated in the emergency room, and she noted she had drainage from her right ear for 2 days. She has no fevers or chills. She has no headache. There is no chest pain, shortness of breath. She has no nausea, vomiting, diarrhea. She ate lunch, and she is hungry and wants to eat dinner. ALLERGIES: She is allergic to PENICILLIN. She does not know the nature of the allergy, but tolerates cephalosporin. PAST MEDICAL HISTORY: Notable for anemia, asthma, multiple myeloma. She has coronary artery disease status post recent stent, heart failure, diabetes, hiatal hernia, hypertension, hypercholesterolemia, liver cysts, and hypothyroidism. SURGICAL HISTORY: Notable for repair of hiatal hernia. She has had a recent stent and she has had carpal tunnel surgery. ALLERGIES: She is allergic to PENICILLIN but tolerates cephalosporins. MEDICATION: Her medicines at home include omega 3, allopurinol, Protonix, aspirin, Tylenol, DuoNeb, Plavix, Toprol XL, Valtrex, Synthroid, potassium, Compazine, and furosemide. SOCIAL HISTORY: Currently her son is living with her. She quit smoking in 1969. There is no history of any alcohol or substance use. REVIEW OF SYSTEMS: As per HPI. She is waiting for dinner and resting comfortably. In the emergency room, she received vancomycin and Levaquin. PHYSICAL EXAMINATION: VITAL SIGNS: She is afebrile. Temperature is 98.1, pulse is 77, blood pressure 94/48, respiratory rate 18, she weighs 57 kg. HEENT: Normocephalic. Eyes are anicteric. She has fewer purulent drainage from her right ear with swelling of the cartilage a little bit, and her left ear is without any pain whatsoever or drainage. There is no otoscope available on the floor. NECK: Supple. MOUTH: She has good dentition. She has no pharyngitis or thrush. LUNGS: Clear to auscultation. HEART: Regular rate and rhythm. ABDOMEN: Soft, nontender. EXTREMITIES: Without edema. LABORATORY: White count is 4.3, hemoglobin 8.4, platelets are 146. BUN and creatinine are 22 and 0.9. Cultures are pending. IMPRESSION: In summary, this is a 73-year-old woman with multiple myeloma admitted with pain and drainage from her ear. She needs to be evaluated by ENT. CAT can has been ordered, results of which are pending. I would suggest at this time we continue her vancomycin, cover for staphylococcus, and would add cefepime for pseudomonal and pneumococcal coverage while awaiting ear, nose, and throat evaluation. Further recommendations to follow. KEYONA ANAYA M.D. [id number]
[2019-03-02] MEDS ORDERED: DEXTROSE 5%-WATER 100 ML IVPB ONE (21:18)
[2019-03-02] MEDS ORDERED: CEFEPIME HCL 1 GM VIAL (RESTRICTED TO ID) ONE (21:18)
[2019-03-02] MEDS: CEFEPIME 1 GM in DEXTROSE 5%-WATER 100 ML IVPB SCH (21:34)
--- NOTE | 2019-03-02 22:24 | HP ---
Admitting History and Physical - Past Medical History Cardiovascular: Yes: CAD (s/p HOLLY D1 this month after NSTEMI), CHF (Chronic systolic CHF, mildly reduced LV function with EF 45%), HTN, Hyperlipdemia Pulmonary: Yes: Asthma Gastrointestinal: Yes: Other (hiatal hernia; rectal polyp) Renal/: Yes: Renal Inusuff, Other (proteinuria) Heme/Onc: Yes: Other (Multiple Myeloma on chemo) Psych: Yes: Depression Endocrine: Yes: Hypothyroidism - Past Surgical History Past Surgical History: Yes: Breast Biopsy (right for cysts), Hernia Repair ( laparoscopic hiatal), Hysterectomy, Tubal Ligation - Smoking History Smoking history: Former smoker Have you smoked in the past 12 months: No Aproximately how many cigarettes per day: 5 If you are a former smoker, when did you quit?: 1969 - Alcohol/Substance Use Hx Alcohol Use: No History of Substance Use: reports: None - Social History ADL: Independent History of Recent Travel: No Home Medications - Allergies Allergies/Adverse Reactions: Allergies Allergy/AdvReac Type Severity Reaction Status Date / Time Penicillins Allergy Severe Rash Verified 02/28/19 16:28 - Home Medications Home Medications: Ambulatory Orders [place]-3/Dha/Epa/Fish Oil [[place] 3 500 Softgel] 1 each PO DAILY 10/11/18 Allopurinol [Zyloprim -] 300 mg PO DAILY #30 tablet 11/09/18 Pantoprazole Sodium [Protonix -] 40 mg PO DAILY #30 tablet.ec 11/09/18 Aspirin [ASA -] 81 mg PO DAILY 12/30/18 Acetaminophen [Tylenol .Regular Strength -] 650 mg PO Q6H PRN #100 tablet Albuterol 2.5/Ipratropium 0.5 [Duoneb -] 1 amp NEB Q6H PRN #30 amp 01/07/19 Clopidogrel Bisulfate [Plavix -] 75 mg PO DAILY #30 tablet 01/07/19 Metoprolol Succinate [Toprol XL -] 12.5 mg PO DAILY #30 tab.sr.24h 01/07/19 Valacyclovir HCl [Valtrex -] 500 mg PO DAILY #30 tablet 01/07/19 Levothyroxine [Synthroid -] 50 mcg PO DAILY@0700 01/28/19 Potassium Chloride [K-Dur -] 10 meq PO DAILY 01/28/19 Prochlorperazine Maleate [Compazine] 10 mg PO Q6H PRN 01/28/19 Furosemide [Lasix] 40 mg PO DAILY #30 tablet 02/07/19 Family Disease History - Family Disease History Family Disease History: [place]: Daughter (1 passed at 14yo of Hodgkin's lymphoma; 1 passed at 48 of lupus), Other: Daughter Physical Examination Vital Signs: Vital Signs Temperature 98.7 F 03/02/19 18:30 Pulse Rate 72 03/02/19 18:30 Respiratory Rate 18 03/02/19 18:30 Blood Pressure 95/49 L 03/02/19 18:30 O2 Sat by Pulse Oximetry (%) 98 03/02/19 16:30 Labs: CBC, BMP 03/02/19 10:22 03/02/19 11:50
[2019-03-03] MEDS ORDERED: ALBUTEROL SO4 2.5/IPRATROPIUM 0.5 INH SOL 3 ML VIAL.NEB. NEB PRN (04:36)
[2019-03-03] MEDS: DEXTROSE 5%-0.45% SALINE 1,000 ML IV SCH ×2 (06:11→20:24)
[2019-03-03] MEDS: LEVOTHYROXINE NA 50 MCG TABLET (FP) PO SCH (06:12)
[2019-03-03] MEDS ORDERED: CEFEPIME HCL 1 GM VIAL (RESTRICTED TO ID) ONE ×2 (09:38→20:43)
[2019-03-03] MEDS ORDERED: DEXTROSE 5%-WATER 100 ML IVPB ONE ×2 (09:38→20:43)
[2019-03-03] MEDS: ACETAMINOPHEN 325 MG TABLET (FP) PO PRN ×2 (09:49→20:59)
[2019-03-03] MEDS: CLOPIDOGREL BISULFATE 75 MG TABLET (FP) PO SCH (09:49)
[2019-03-03] MEDS: ASPIRIN 81 MG CHEWABLE TABLETS PO SCH (09:49)
[2019-03-03] MEDS: PANTOPRAZOLE 40 MG TABLET (FP) PO SCH (09:49)
[2019-03-03] MEDS: ALLOPURINOL 300 MG TABLET (FP) PO SCH (09:49)
[2019-03-03] MEDS: FUROSEMIDE 40 MG TABLET (FP) PO SCH (09:49)
[2019-03-03] MEDS: HEPARIN NA (PORCINE) 5,000 UNITS/ML 1ML VIAL SQ SCH ×2 (09:50→20:59)
[2019-03-03] MEDS: CEFEPIME 1 GM in DEXTROSE 5%-WATER 100 ML IVPB SCH ×2 (09:51→20:59)
[2019-03-03] MEDS ORDERED: metoPROLOL SUCCINATE 25 MG TAB.SR.24H (FP) PO SCH (10:00)
[2019-03-03 10:51] LABS: BASO % 0.2 % (0-2.0); EOS % 1.8 % (0-4.5); HEMATOCRIT 26.5 % (32.4-45.2); HEMOGLOBIN 8.8 GM/dL (10.7-15.3); LYMPH % 23.8 % (8-40); MCH 30.7 pg (25.7-33.7); MCHC 33.1 g/dl (32.0-36.0); MEAN CELL VOLUME 92.9 fl (80-96); MEAN PLT VOLUME 10.1 fl (7.5-11.1); MONO % 16.6 % (3.8-10.2); NEUT % 57.6 % (42.8-82.8); PLATELET COUNT 112 K/MM3 (134-434); RBC 2.86 M/mm3 (3.60-5.2); RDW 18.4 % (11.6-15.6); WHITE BLOOD COUNT 3.5 K/mm3 (4.0-10.0)
[2019-03-03] MEDS: VANCOMYCIN 1 GRAM (PRE-DOCKED) 1,000 MG/250 ML BAG IVPB SCH (10:57)
[2019-03-03 11:28] LABS: ALBUMIN 1.5 g/dl (3.4-5.0); ALK PHOS 43 U/L (45-117); ANION GAP 9 MMOL/L (8-16); BILIRUBIN,TOTAL 0.6 mg/dL (0.2-1); BLOOD UREA NITROGEN 14 mg/dL (7-18); CALCIUM 7.6 mg/dL (8.5-10.1); CHLORIDE 112 mmol/L (98-107); CO2 18 mmol/L (21-32); CREATININE 0.8 mg/dL (0.55-1.3); GLUCOSE,RANDOM 94 mg/dL (74-106); POTASSIUM 3.7 mmol/L (3.5-5.1); SGOT/AST 9 U/L (15-37); SGPT/ALT 12 U/L (13-61); SODIUM 139 mmol/L (136-145); TOT PROT 6.3 g/dl (6.4-8.2)
--- NOTE | 2019-03-03 12:31 | CON.CARD ---
Cardiology Consult (text) - Consultation Consultation Note: Chief Complaint: dizzy, low bp History of Present Illness: 73-year-old female with a past medical history significant for multiple myeloma , NSTEMI s/p stent placement at [facility] (December 2018), CHF, EF of 45-50% and baseline BP of 90-100 systolic presents to the emergency department with dizziness and low bp. Past several days with ear pain and weakness and then yesterday had dizzy and low bp so sent to ER. No cp sob palps loc pnd orthopnea le edema. Found to have low bp and ear infection. On abx now. PMH/PSH: Chronic systolic CHF Cardiomyopathy, mild LV systolic dysfunction Recent NSTEMI s/p HOLLY D1 Multiple myeloma on chemotherapy Chronic Anemia- guaiac negative, but known rectal polyp fam: no premature cad social: no tob ros: per hpi; ear pain; all others normal Home Medications Medication Instructions Recorded [place]-3/Dha/Epa/Fish Oil [[place] 3 1 each PO DAILY 10/11/18 500 Softgel] Allopurinol [Zyloprim -] 300 mg PO DAILY #30 tablet 11/09/18 Pantoprazole Sodium [Protonix -] 40 mg PO DAILY #30 tablet.ec 11/09/18 Aspirin [ASA -] 81 mg PO DAILY 12/30/18 Acetaminophen [Tylenol .Regular 650 mg PO Q6H PRN #100 tablet 01/07/19 Strength -] Albuterol 2.5/Ipratropium 0.5 1 amp NEB Q6H PRN #30 amp 01/07/19 [Duoneb -] Clopidogrel Bisulfate [Plavix -] 75 mg PO DAILY #30 tablet 01/07/19 Metoprolol Succinate [Toprol XL -] 12.5 mg PO DAILY #30 tab.sr.24h 01/07/19 Valacyclovir HCl [Valtrex -] 500 mg PO DAILY #30 tablet 01/07/19 Levothyroxine [Synthroid -] 50 mcg PO DAILY@0700 01/28/19 Potassium Chloride [K-Dur -] 10 meq PO DAILY 01/28/19 Prochlorperazine Maleate 10 mg PO Q6H PRN 01/28/19 [Compazine] Furosemide [Lasix] 40 mg PO DAILY #30 tablet 02/07/19 - Objective Vital Signs: Vital Signs Period Temp Pulse Resp BP Sys/[place]oss Pulse Ox Last 24 Hr 98.1 F-100.9 F 72-84 18-20 94-97/48-64 97-98 nad no jvd rrr s1s2 no mrg cta bl nl eff aao3 no le e/c/c abd nt nd pos bs no jaundice diaphoresis pos dp pt no carotid bruits Laboratory Last Values WBC 3.5 K/mm3 (4.0-10.0) L 03/03/19 10:15 RBC 2.86 M/mm3 (3.60-5.2) L 03/03/19 10:15 Hgb 8.8 GM/dL (10.7-15.3) L 03/03/19 10:15 Hct 26.5 % (32.4-45.2) L 03/03/19 10:15 MCV 92.9 fl (80-96) 03/03/19 10:15 MCH 30.7 pg (25.7-33.7) 03/03/19 10:15 MCHC 33.1 g/dl (32.0-36.0) 03/03/19 10:15 RDW 18.4 % (11.6-15.6) H 03/03/19 10:15 Plt Count 112 K/MM3 (134-434) L D 03/03/19 10:15 MPV 10.1 fl (7.5-11.1) 03/03/19 10:15 Absolute Neuts (auto) 2.0 K/mm3 (1.5-8.0) 03/03/19 10:15 Neutrophils % 57.6 % (42.8-82.8) 03/03/19 10:15 Lymphocytes % 23.8 % (8-40) 03/03/19 10:15 Monocytes % 16.6 % (3.8-10.2) H 03/03/19 10:15 Eosinophils % 1.8 % (0-4.5) 03/03/19 10:15 Basophils % 0.2 % (0-2.0) 03/03/19 10:15 Nucleated RBC % 0 % (0-0) 03/03/19 10:15 PT with INR 14.80 SEC (9.7-13.0) H 03/02/19 11:50 INR 1.25 (0.83-1.09) H 03/02/19 11:50 Sodium 139 mmol/L (136-145) 03/03/19 10:15 Potassium 3.7 mmol/L (3.5-5.1) 03/03/19 10:15 Chloride 112 mmol/L (98-107) H 03/03/19 10:15 Carbon Dioxide 18 mmol/L (21-32) L 03/03/19 10:15 Anion Gap 9 MMOL/L (8-16) 03/03/19 10:15 BUN 14 mg/dL (7-18) 03/03/19 10:15 Creatinine 0.8 mg/dL (0.55-1.3) 03/03/19 10:15 Creat Clearance w eGFR 70.12 (>60) 03/03/19 10:15 Random Glucose 94 mg/dL (74-106) 03/03/19 10:15 Calcium 7.6 mg/dL (8.5-10.1) L 03/03/19 10:15 Magnesium Cancelled 03/02/19 10:22 Total Bilirubin 0.6 mg/dL (0.2-1) 03/03/19 10:15 AST 9 U/L (15-37) L 03/03/19 10:15 ALT 12 U/L (13-61) L 03/03/19 10:15 Alkaline Phosphatase 43 U/L (45-117) L 03/03/19 10:15 Creatine Kinase Cancelled 03/02/19 10:22 Troponin I Cancelled 03/02/19 10:22 B-Natriuretic Peptide Cancelled 03/02/19 10:22 Total Protein 6.3 g/dl (6.4-8.2) L 03/03/19 10:15 Albumin 1.5 g/dl (3.4-5.0) L 03/03/19 10:15 Blood Type B POSITIVE 03/02/19 11:20 Antibody Screen Negative 03/02/19 11:20 Crossmatch See Detail 03/02/19 11:20 EKG: sr, lvh with repol changes, similar to priors cxr: clear lungs echo 12/2018 mildly reduced LV function, apical septal mild hypokinesis, basal anteroseptal mild hypokinesis, mid anteroseptal mild hypokinesis, septal wall mild hypokinesis, nl RV, grade II diastolic dysfunction, LA mildly dilated, mild MR, mild TR, PASP at least 28 mmHg, mild AR, mild MN a/p: 73F h/o cardiomyopathy with mild systolic dysfunction, CAD s/p stent, HTN, HLD, multiple myeloma p/w chest pain, sob, lower ext edema ear infection, hypotension: -abx per ID -will hold metoprolol for now given low bp likely due to infection chronic syst chf: -stable on po lasix CAD - no signs of acute ischemia here - cont aspirin, statin, plavix - will hold bb as above htn: -holding bb as above hld: -stable
--- NOTE | 2019-03-03 13:40 | EKG ---
Test Reason : Blood Pressure : / mmHG Vent. Rate : 068 BPM Atrial Rate : 068 BPM P-R Int : 156 ms QRS Dur : 102 ms QT Int : 406 ms P-R-T Axes : 050 -21 216 degrees QTc Int : 431 ms NORMAL SINUS RHYTHM LEFT VENTRICULAR HYPERTROPHY WITH REPOLARIZATION ABNORMALITY ABNORMAL ECG WHEN COMPARED WITH ECG OF 28-FEB-2019 16:51, NO SIGNIFICANT CHANGE WAS FOUND Confirmed by FILIBERTO PATEL MD ([id number]) on 03/03/2019 1:39:28 PM Referred By: Confirmed By:FILIBERTO PATEL MD
--- NOTE | 2019-03-03 14:00 | PN ---
Progress Note (short form) - Note Progress Note: feels well oob in chair minimal right ear pain Vital Signs Period Temp Pulse Resp BP Sys/Moss Pulse Ox Last 24 Hr 98.1 F-100.9 F 72-84 18-20 94-97/48-64 97-98 cor-rrr lungs clear abd soft,nt ext no edema +swelling of right ear pinna and canal, minimal drainage left ear NT CBC, BMP 03/03/19 10:15 03/03/19 10:15 Microbiology 03/02/19 11:20 Blood - Peripheral Venous Blood Culture - Preliminary NO GROWTH OBTAINED AFTER 24 HOURS, INCUBATION TO CONTINUE FOR 4 DAYS. 03/02/19 11:15 Blood - Peripheral Venous Blood Culture - Preliminary NO GROWTH OBTAINED AFTER 24 HOURS, INCUBATION TO CONTINUE FOR [address] scan temporal bones-bilateral otitis externa??? ent evaluatin pending pen allergy- tolerates cephalosporins a/p right otitis- ?externa, ?perforation ct scan not clinically logical await ENT evaluation vanco/cefepime to continue Multiple myeloma- f/u oncology cad- s/p stent Problem List - Problems (1) Otitis Code(s): H66.90 - OTITIS MEDIA, UNSPECIFIED, UNSPECIFIED EAR (2) Multiple myeloma Code(s): C90.00 - MULTIPLE MYELOMA NOT HAVING ACHIEVED REMISSION (3) Penicillin allergy Code(s): Z88.0 - ALLERGY STATUS TO PENICILLIN (4) CAD (coronary artery disease) Code(s): I25.10 - ATHSCL HEART DISEASE OF [place] CORONARY ARTERY W/O ANG PCTRS Qualifiers:
--- NOTE | 2019-03-03 23:34 | PN ---
Progress Note, Physician - Current Medication List Current Medications: Active Medications Acetaminophen (Tylenol -) 650 mg PO Q6H PRN PRN Reason: PAIN Last Admin: 03/03/19 20:59 Dose: 650 mg Albuterol/Ipratropium (Duoneb -) 1 amp NEB Q6H PRN PRN Reason: SHORTNESS OF BREATH Allopurinol (Zyloprim -) 300 mg PO DAILY [facility] Last Admin: 03/03/19 09:49 Dose: 300 mg Aspirin (Asa -) 81 mg PO DAILY [facility] Last Admin: 03/03/19 09:49 Dose: 81 mg Clopidogrel Bisulfate (Plavix -) 75 mg PO DAILY [facility] Last Admin: 03/03/19 09:49 Dose: 75 mg Furosemide (Lasix -) 40 mg PO DAILY [facility] Last Admin: 03/03/19 09:49 Dose: 40 mg Heparin Sodium (Porcine) (Heparin -) 5,000 unit SQ BID [facility] Last Admin: 03/03/19 20:59 Dose: 5,000 unit Cefepime HCl 1 gm/ Dextrose 100 mls @ 200 mls/hr IVPB BID [facility]; Protocol Last Admin: 03/03/19 20:59 Dose: 200 mls/hr Vancomycin HCl (Vancomycin (Pre-Docked)) 1,000 mg in 250 mls @ 166.667 mls/hr IVPB DAILY@1100 [facility]; Protocol Last Admin: 03/03/19 10:57 Dose: 166.667 mls/hr Dextrose/Sodium Chloride (D5-1/2ns -) 1,000 mls @ 75 mls/hr IV ASDIR [facility] Last Admin: 03/03/19 20:24 Dose: 75 mls/hr Levothyroxine Sodium (Synthroid -) 50 mcg PO DAILY@0700 [facility] Last Admin: 03/03/19 06:12 Dose: 50 mcg Pantoprazole Sodium (Protonix -) 40 mg PO DAILY [facility] Last Admin: 03/03/19 09:49 Dose: 40 mg - Objective Vital Signs: Vital Signs Temperature 97.9 F 03/03/19 21:46 Pulse Rate 60 03/03/19 21:46 Respiratory Rate 20 03/03/19 21:46 Blood Pressure 105/50 L 03/03/19 21:46 O2 Sat by Pulse Oximetry (%) 97 03/02/19 23:00 Labs: CBC, BMP 03/03/19 10:15 03/03/19 10:15 INR, PTT INR 1.25 (0.83-1.09) H 03/02/19 11:50
[2019-03-04] MEDS: DEXTROSE 5%-0.45% SALINE 1,000 ML IV SCH (06:07)
[2019-03-04] MEDS: LEVOTHYROXINE NA 50 MCG TABLET (FP) PO SCH (06:07)
[2019-03-04] MEDS ORDERED: CEFEPIME HCL 1 GM VIAL (RESTRICTED TO ID) ONE ×2 (09:37→21:38)
[2019-03-04] MEDS ORDERED: DEXTROSE 5%-WATER 100 ML IVPB ONE ×2 (09:37→21:38)
--- NOTE | 2019-03-04 09:48 | CONSULT ---
Consult - text type - Consultation Consultation Note: ENT 73 yo woman c/o worsening right ear pain x 1 week. Hx of multiple myeloma and CAD with recent HOLLY. No change in ear symtoms on IV abx and after one dose of ear drops. CT report was suspicious for malignant otitis externa. No change in hearing, denies hearing loss. P/WDWN BF in NAD, laying comfortably in bed Right pinna has a tender area of maceration, edema and exudate at the inferior sonny, extending to the EAC orifice, inferior antihelix and antitragus, with surrounding flaking of the skin extending to much of the inferior pinna. There is a cerumen impaction in the deeper EAC, as well as in the left EAC, but no discharge in either EAC. TMs were not well seen due to small EAC apertures and the cerumen. Imp: Initial impression is a skin infection of the right pinna, although atypical. Clinically, this is not external otitis, either regular or malignant. Rather, it is probably either dermatitis or cellulitis of the right pinna. It does not look like perichondritis at this time. There is an incidental finding of bilateral cerumen impactions. Recommend beginning Cortisporin otic suspension 4 drops in the right ear qid to reach the area inside the EAC orifice, and applying a topical corticosteroid cream, such as triamcinolone or hydrocortisone, to the visible swelling and ulceration of the pinna; and continuing systemic antibacterials. Would suggest a dermatology consult as well. Should follow up as an outpatient to have cerumen removed and a lesion re-check, if she is otherwise stable for discharge. Depending on the response to topical steroids and eardrops over the next week, a biopsy may be indicated. Reconsult if getting worse despite medication.
[2019-03-04] MEDS: CEFEPIME 1 GM in DEXTROSE 5%-WATER 100 ML IVPB SCH ×2 (10:46→22:15)
[2019-03-04] MEDS: CLOPIDOGREL BISULFATE 75 MG TABLET (FP) PO SCH (10:47)
[2019-03-04] MEDS: FUROSEMIDE 40 MG TABLET (FP) PO SCH (10:47)
[2019-03-04] MEDS: ASPIRIN 81 MG CHEWABLE TABLETS PO SCH (10:47)
[2019-03-04] MEDS: HEPARIN NA (PORCINE) 5,000 UNITS/ML 1ML VIAL SQ SCH ×2 (10:47→22:14)
[2019-03-04] MEDS: PANTOPRAZOLE 40 MG TABLET (FP) PO SCH (10:47)
[2019-03-04] MEDS: ALLOPURINOL 300 MG TABLET (FP) PO SCH (10:49)
[2019-03-04] MEDS: VANCOMYCIN 1 GRAM (PRE-DOCKED) 1,000 MG/250 ML BAG IVPB SCH (12:24)
--- NOTE | 2019-03-04 15:37 | PN ---
Progress Note, Physician - Current Medication List Current Medications: Active Medications Acetaminophen (Tylenol -) 650 mg PO Q6H PRN PRN Reason: PAIN Last Admin: 03/03/19 20:59 Dose: 650 mg Albuterol/Ipratropium (Duoneb -) 1 amp NEB Q6H PRN PRN Reason: SHORTNESS OF BREATH Allopurinol (Zyloprim -) 300 mg PO DAILY [facility] Last Admin: 03/04/19 10:49 Dose: 300 mg Aspirin (Asa -) 81 mg PO DAILY [facility] Last Admin: 03/04/19 10:47 Dose: 81 mg Clopidogrel Bisulfate (Plavix -) 75 mg PO DAILY [facility] Last Admin: 03/04/19 10:47 Dose: 75 mg Furosemide (Lasix -) 40 mg PO DAILY [facility] Last Admin: 03/04/19 10:47 Dose: 40 mg Heparin Sodium (Porcine) (Heparin -) 5,000 unit SQ BID [facility] Last Admin: 03/04/19 10:47 Dose: 5,000 unit Cefepime HCl 1 gm/ Dextrose 100 mls @ 200 mls/hr IVPB BID [facility]; Protocol Last Admin: 03/04/19 10:46 Dose: 200 mls/hr Vancomycin HCl (Vancomycin (Pre-Docked)) 1,000 mg in 250 mls @ 166.667 mls/hr IVPB DAILY@1100 [facility]; Protocol Last Admin: 03/04/19 12:24 Dose: 166.667 mls/hr Dextrose/Sodium Chloride (D5-1/2ns -) 1,000 mls @ 75 mls/hr IV ASDIR [facility] Last Admin: 03/04/19 06:07 Dose: 75 mls/hr Levothyroxine Sodium (Synthroid -) 50 mcg PO DAILY@0700 [facility] Last Admin: 03/04/19 06:07 Dose: 50 mcg Pantoprazole Sodium (Protonix -) 40 mg PO DAILY [facility] Last Admin: 03/04/19 10:47 Dose: 40 mg - Objective Vital Signs: Vital Signs Temperature 98.5 F 03/04/19 15:22 Pulse Rate 80 03/04/19 15:22 Respiratory Rate 20 03/04/19 10:00 Blood Pressure 118/63 03/04/19 15:22 O2 Sat by Pulse Oximetry (%) 97 03/02/19 23:00 HENT: Yes: Atraumatic Neck: Yes: Supple Cardiovascular: Yes: Regular Rate and Rhythm Respiratory: Yes: CTA Bilaterally Gastrointestinal: Yes: Normal Bowel Sounds Extremities: Yes: WNL Neurological: Yes: Alert, Oriented Labs: CBC, BMP 03/03/19 10:15 03/03/19 10:15 INR, PTT INR 1.25 (0.83-1.09) H 03/02/19 11:50 Problem List - Problems (1) Otitis externa Assessment/Plan: ON IV ABX PER ID Code(s): H60.90 - UNSPECIFIED OTITIS EXTERNA, UNSPECIFIED EAR Qualifiers: Otitis externa type: unspecified type Chronicity: acute Laterality: right Qualified Code(s): H60.501 - Unspecified acute noninfective otitis externa, right ear (2) Otitis media with rupture of tympanic membrane Code(s): H66.90 - OTITIS MEDIA, UNSPECIFIED, UNSPECIFIED EAR; H72.90 - UNSP PERFORATION OF TYMPANIC MEMBRANE, UNSPECIFIED EAR Qualifiers: Laterality: right Qualified Code(s): H66.91 - Otitis media, unspecified, right ear; H72.91 - Unspecified perforation of tympanic membrane, right ear (3) Adult onset hypothyroidism Assessment/Plan: ON MEDS Code(s): E03.8 - OTHER SPECIFIED HYPOTHYROIDISM (4) CAD (coronary artery disease) Code(s): I25.10 - ATHSCL HEART DISEASE OF [place] CORONARY ARTERY W/O ANG PCTRS Qualifiers: (5) CHF (congestive heart failure) Code(s): I50.9 - HEART FAILURE, UNSPECIFIED Qualifiers: Heart failure type: systolic Heart failure chronicity: unspecified Qualified Code(s): I50.20 - Unspecified systolic (congestive) heart failure (6) CKD (chronic kidney disease) Code(s): N18.9 - CHRONIC KIDNEY DISEASE, UNSPECIFIED Assessment/Plan CONTINUE CURRENT MEDS COVERING DR BELL TODAY
--- NOTE | 2019-03-04 15:41 | PN ---
Progress Note (short form) - Note Progress Note: s: no cp sob palps dizzy o: Vital Signs Period Temp Pulse Resp BP Sys/Moss Pulse Ox Last 24 Hr 97.9 F-98.5 F 60-87 20-20 105-122/50-67 nad no jvd rrr s1s2 no mrg cta bl nl eff aao3 trace pedal edema abd nt nd pos bs no jaundice diaphoresis Current Medications Generic Name Dose Route Start Last Admin Trade Name Freq PRN Reason Stop Dose Admin Acetaminophen 650 mg 03/03/19 04:36 03/03/19 20:59 Tylenol - PO 650 mg Q6H PRN Administration PAIN Albuterol/Ipratropium 1 amp 03/03/19 04:36 Duoneb - NEB Q6H PRN SHORTNESS OF BREATH Allopurinol 300 mg 03/03/19 10:00 03/04/19 10:49 Zyloprim - PO 300 mg DAILY [facility] Administration Aspirin 81 mg 03/03/19 10:00 03/04/19 10:47 Asa - PO 81 mg DAILY [facility] Administration Clopidogrel Bisulfate 75 mg 03/03/19 10:00 03/04/19 10:47 Plavix - PO 75 mg DAILY [facility] Administration Furosemide 40 mg 03/03/19 10:00 03/04/19 10:47 Lasix - PO 40 mg DAILY [facility] Administration Heparin Sodium (Porcine) 5,000 unit 03/03/19 10:00 03/04/19 10:47 Heparin - SQ 5,000 unit BID [facility] Administration Cefepime HCl 1 gm/ Dextrose 100 mls @ 200 mls/hr 03/02/19 22:00 03/04/19 10: 46 IVPB 200 mls/hr BID [facility] Administration Protocol Vancomycin HCl 1,000 mg in 250 mls @ 166.667 mls/hr 03/03/19 11:00 03/04/19 12:24 Vancomycin (Pre-Docked) IVPB 166.667 mls/hr DAILY@1100 [facility] Administration Protocol Dextrose/Sodium Chloride 1,000 mls @ 75 mls/hr 03/03/19 04:45 03/04/19 06:07 D5-1/2ns - IV 75 mls/hr ASDIR [facility] Administration Levothyroxine Sodium 50 mcg 03/03/19 07:00 03/04/19 06:07 Synthroid - PO 50 mcg DAILY@0700 [facility] Administration Pantoprazole Sodium 40 mg 03/03/19 10:00 03/04/19 10:47 Protonix - PO 40 mg DAILY [facility] Administration CBC, BMP 03/03/19 10:15 03/03/19 10:15 EKG: sr, lvh with repol changes, similar to priors cxr: clear lungs echo 12/2018 mildly reduced LV function, apical septal mild hypokinesis, basal anteroseptal mild hypokinesis, mid anteroseptal mild hypokinesis, septal wall mild hypokinesis, nl RV, grade II diastolic dysfunction, LA mildly dilated, mild MR, mild TR, PASP at least 28 mmHg, mild AR, mild CA a/p: 73F h/o cardiomyopathy with mild systolic dysfunction, CAD s/p stent, HTN, HLD, multiple myeloma p/w chest pain, sob, lower ext edema ear infection, hypotension: -abx per ID -will hold metoprolol for now given low bp likely due to infection chronic syst chf: -stable on po lasix. will dc ivfs as has trace pedal edema now. CAD - no signs of acute ischemia here - cont aspirin, statin, plavix - will hold bb as above htn: -holding bb due to low bp here hld: -stable
--- NOTE | 2019-03-04 20:33 | PN ---
Progress Note (short form) - Note Progress Note: Patient seen and examined 73 y/o patient with myeloma/amyloidosis/ nephrotic syndrome/CAD/CHF on velcade/ revlimid/dexamethasone admitted with hypotension/ right ear pain and swelling Denes fever/chills/cough/SOB. no abdoinal pain/diarrhea AFVSS eyelid rash/conjunctival erythema Cor: RSR, No murmurs, No gallops Lungs: Clear to P&A Abd: Soft, Normal bowel sounds, No organomegaly Ext:No significant edema Labs/Meds reviewed A/P 73 y/o patient with myeloma/amyloidosis/ nephrotic syndrome/CAD/CHF on velcade/ revlimid/dexamethasone admitted with hypotension/ right ear pain/swelling Started revlimid 2 weeks back ? otitis externa// ? allergic reaction to revlimid On cefepime f/u ID recs will request ophtho/derm consults
[2019-03-04 23:59] VITALS: BMI 23.0
[2019-03-05] MEDS: LEVOTHYROXINE NA 50 MCG TABLET (FP) PO SCH (06:12)
[2019-03-05] MEDS ORDERED: PT OWN MED DRAWER 7, Y5N ONE ×2 (09:14→14:33)
[2019-03-05] MEDS ORDERED: CEFEPIME HCL 1 GM VIAL (RESTRICTED TO ID) ONE ×2 (09:14→21:41)
[2019-03-05] MEDS ORDERED: DEXTROSE 5%-WATER 100 ML IVPB ONE ×2 (09:15→21:41)
[2019-03-05] MEDS: HEPARIN NA (PORCINE) 5,000 UNITS/ML 1ML VIAL SQ SCH ×2 (09:29→21:45)
[2019-03-05] MEDS: ACETAMINOPHEN 325 MG TABLET (FP) PO PRN (09:29)
[2019-03-05] MEDS: ASPIRIN 81 MG CHEWABLE TABLETS PO SCH (09:30)
[2019-03-05] MEDS: PANTOPRAZOLE 40 MG TABLET (FP) PO SCH (09:30)
[2019-03-05] MEDS: ALLOPURINOL 300 MG TABLET (FP) PO SCH (09:30)
[2019-03-05] MEDS: CLOPIDOGREL BISULFATE 75 MG TABLET (FP) PO SCH (09:30)
[2019-03-05] MEDS: CEFEPIME 1 GM in DEXTROSE 5%-WATER 100 ML IVPB SCH ×2 (09:30→21:45)
[2019-03-05] MEDS: FUROSEMIDE 40 MG TABLET (FP) PO SCH (09:30)
[2019-03-05] MEDS: VANCOMYCIN 1 GRAM (PRE-DOCKED) 1,000 MG/250 ML BAG IVPB SCH (11:16)
--- NOTE | 2019-03-05 12:13 | PN ---
Progress Note (short form) - Note Progress Note: seen by ENT yesterday- ear drops reccd- not ordered- I will order oob in chair Vital Signs Period Temp Pulse Resp BP Sys/Moss Pulse Ox Last 24 Hr 98.2 F-99.3 F 80-91 19-20 105-126/60-70 cor-rrr lungs clear right ear with swelling of the canal- dried drainage noted ext no edema CBC, BMP 03/03/19 10:15 03/03/19 10:15 Microbiology 03/02/19 11:20 Blood - Peripheral Venous Blood Culture - Preliminary NO GROWTH OBTAINED AFTER 72 HOURS, INCUBATION TO CONTINUE FOR 2 DAYS. 03/02/19 11:15 Blood - Peripheral Venous Blood Culture - Preliminary NO GROWTH OBTAINED AFTER 72 HOURS, INCUBATION TO CONTINUE FOR [address] scan temporal bones-bilateral otitis externa??? ent evaluatin pending pen allergy- tolerates cephalosporins a/p right otitis- ?externa, ?perforation ct scan not clinically logical await ENT evaluation-cortisporin otic suspension reccd- will order continue cefepime would ask ENT to reassess on Thursday as ct scan findings have not been addressed Multiple myeloma- f/u oncology cad- s/p stent Problem List - Problems (1) Otitis Code(s): H66.90 - OTITIS MEDIA, UNSPECIFIED, UNSPECIFIED EAR (2) Multiple myeloma Code(s): C90.00 - MULTIPLE MYELOMA NOT HAVING ACHIEVED REMISSION (3) Penicillin allergy Code(s): Z88.0 - ALLERGY STATUS TO PENICILLIN (4) CAD (coronary artery disease) Code(s): I25.10 - ATHSCL HEART DISEASE OF [place] CORONARY ARTERY W/O ANG PCTRS Qualifiers:
[2019-03-05] MEDS: NEOMYCIN/POLYMYXN/HC OTIC SUSPENSION 10 ML BOTTLE AD SCH ×2 (14:48→18:57)
--- NOTE | 2019-03-05 22:03 | PN ---
Progress Note, Physician Chief Complaint: R ear pain History of Present Illness: Reports that ear pain is better. No discharge. Afebrile. - Current Medication List Current Medications: Active Medications Acetaminophen (Tylenol -) 650 mg PO Q6H PRN PRN Reason: PAIN Last Admin: 03/05/19 09:29 Dose: 650 mg Albuterol/Ipratropium (Duoneb -) 1 amp NEB Q6H PRN PRN Reason: SHORTNESS OF BREATH Allopurinol (Zyloprim -) 300 mg PO DAILY [facility] Last Admin: 03/05/19 09:30 Dose: 300 mg Aspirin (Asa -) 81 mg PO DAILY [facility] Last Admin: 03/05/19 09:30 Dose: 81 mg Clopidogrel Bisulfate (Plavix -) 75 mg PO DAILY [facility] Last Admin: 03/05/19 09:30 Dose: 75 mg Furosemide (Lasix -) 40 mg PO DAILY [facility] Last Admin: 03/05/19 09:30 Dose: 40 mg Heparin Sodium (Porcine) (Heparin -) 5,000 unit SQ BID [facility] Last Admin: 03/05/19 21:45 Dose: 5,000 unit Cefepime HCl 1 gm/ Dextrose 100 mls @ 200 mls/hr IVPB BID [facility]; Protocol Last Admin: 03/05/19 21:45 Dose: 200 mls/hr Levothyroxine Sodium (Synthroid -) 50 mcg PO DAILY@0700 [facility] Last Admin: 03/05/19 06:12 Dose: 50 mcg Neomycin/Polymyxin/Hydrocortisone (Cortisporin Otic Suspenstion -) 4 drop AD Q6HPO [facility] Last Admin: 03/05/19 18:57 Dose: 4 drop Pantoprazole Sodium (Protonix -) 40 mg PO DAILY [facility] Last Admin: 03/05/19 09:30 Dose: 40 mg - Objective Vital Signs: Vital Signs Temperature 99.3 F 03/05/19 09:00 Pulse Rate 91 H 03/05/19 09:00 Respiratory Rate 20 03/05/19 09:00 Blood Pressure 105/60 03/05/19 09:00 O2 Sat by Pulse Oximetry (%) 97 03/05/19 09:00 Constitutional: Yes: No Distress, Calm HENT: Yes: Pharyngeal Erythema, Other (Right pinna with mild swelling, redness, crusting) Neck: Yes: Rigid Cardiovascular: Yes: Regular Rate and Rhythm Respiratory: Yes: Regular, CTA Bilaterally Gastrointestinal: Yes: Soft Edema: No Labs: CBC, BMP 03/03/19 10:15 03/03/19 10:15 INR, PTT INR 1.25 (0.83-1.09) H 03/02/19 11:50 Assessment/Plan 73F with NSTEMI in 12/2018 s/p HOLLY D1 CHF (EF 45-50%), IgA lambda, myeloma/ amyloidosis c/b nephrotic range proteinuria, on VRD admitted with right ear pain. Suspected to have dermatitis or cellulitis of the right pinna for which she is being treated with abx and topical steroids. ANC normal. Continue to hold revlimid for now. Awaiting optho/derm consult for ?blephritis
--- NOTE | 2019-03-05 23:56 | PN ---
Progress Note, Physician - Current Medication List Current Medications: Active Medications Acetaminophen (Tylenol -) 650 mg PO Q6H PRN PRN Reason: PAIN Last Admin: 03/05/19 09:29 Dose: 650 mg Albuterol/Ipratropium (Duoneb -) 1 amp NEB Q6H PRN PRN Reason: SHORTNESS OF BREATH Allopurinol (Zyloprim -) 300 mg PO DAILY [facility] Last Admin: 03/05/19 09:30 Dose: 300 mg Aspirin (Asa -) 81 mg PO DAILY [facility] Last Admin: 03/05/19 09:30 Dose: 81 mg Clopidogrel Bisulfate (Plavix -) 75 mg PO DAILY [facility] Last Admin: 03/05/19 09:30 Dose: 75 mg Furosemide (Lasix -) 40 mg PO DAILY [facility] Last Admin: 03/05/19 09:30 Dose: 40 mg Heparin Sodium (Porcine) (Heparin -) 5,000 unit SQ BID [facility] Last Admin: 03/05/19 21:45 Dose: 5,000 unit Cefepime HCl 1 gm/ Dextrose 100 mls @ 200 mls/hr IVPB BID [facility]; Protocol Last Admin: 03/05/19 21:45 Dose: 200 mls/hr Levothyroxine Sodium (Synthroid -) 50 mcg PO DAILY@0700 [facility] Last Admin: 03/05/19 06:12 Dose: 50 mcg Neomycin/Polymyxin/Hydrocortisone (Cortisporin Otic Suspenstion -) 4 drop AD Q6HPO [facility] Last Admin: 03/05/19 18:57 Dose: 4 drop Pantoprazole Sodium (Protonix -) 40 mg PO DAILY [facility] Last Admin: 03/05/19 09:30 Dose: 40 mg - Objective Vital Signs: Vital Signs Temperature 99 F 03/05/19 22:00 Pulse Rate 88 03/05/19 22:00 Respiratory Rate 20 03/05/19 22:00 Blood Pressure 110/62 03/05/19 22:00 O2 Sat by Pulse Oximetry (%) 96 03/05/19 21:00 Labs: CBC, BMP 03/03/19 10:15 03/03/19 10:15 INR, PTT INR 1.25 (0.83-1.09) H 03/02/19 11:50
[2019-03-06] MEDS: NEOMYCIN/POLYMYXN/HC OTIC SUSPENSION 10 ML BOTTLE AD SCH ×4 (00:06→17:33)
[2019-03-06] MEDS: LEVOTHYROXINE NA 50 MCG TABLET (FP) PO SCH (06:13)
[2019-03-06] MEDS ORDERED: PT OWN MED DRAWER 7, Y5N ONE ×2 (09:17→09:48)
[2019-03-06] MEDS ORDERED: CEFEPIME HCL 1 GM VIAL (RESTRICTED TO ID) ONE ×2 (09:48→20:55)
[2019-03-06] MEDS ORDERED: DEXTROSE 5%-WATER 100 ML IVPB ONE ×2 (09:49→20:55)
[2019-03-06] MEDS: ASPIRIN 81 MG CHEWABLE TABLETS PO SCH (09:54)
[2019-03-06] MEDS: CLOPIDOGREL BISULFATE 75 MG TABLET (FP) PO SCH (09:54)
[2019-03-06] MEDS: FUROSEMIDE 40 MG TABLET (FP) PO SCH (09:54)
[2019-03-06] MEDS: HEPARIN NA (PORCINE) 5,000 UNITS/ML 1ML VIAL SQ SCH ×2 (09:54→21:04)
[2019-03-06] MEDS: CEFEPIME 1 GM in DEXTROSE 5%-WATER 100 ML IVPB SCH ×2 (09:54→21:04)
[2019-03-06] MEDS: PANTOPRAZOLE 40 MG TABLET (FP) PO SCH (09:54)
[2019-03-06] MEDS: ALLOPURINOL 300 MG TABLET (FP) PO SCH (09:55)
--- NOTE | 2019-03-06 18:44 | PN ---
Progress Note, Physician History of Present Illness: No ear pain today. Denies QUINTEROS. - Current Medication List Current Medications: Active Medications Acetaminophen (Tylenol -) 650 mg PO Q6H PRN PRN Reason: PAIN Last Admin: 03/05/19 09:29 Dose: 650 mg Albuterol/Ipratropium (Duoneb -) 1 amp NEB Q6H PRN PRN Reason: SHORTNESS OF BREATH Allopurinol (Zyloprim -) 300 mg PO DAILY [facility] Last Admin: 03/06/19 09:55 Dose: 300 mg Aspirin (Asa -) 81 mg PO DAILY [facility] Last Admin: 03/06/19 09:54 Dose: 81 mg Clopidogrel Bisulfate (Plavix -) 75 mg PO DAILY [facility] Last Admin: 03/06/19 09:54 Dose: 75 mg Furosemide (Lasix -) 40 mg PO DAILY [facility] Last Admin: 03/06/19 09:54 Dose: 40 mg Heparin Sodium (Porcine) (Heparin -) 5,000 unit SQ BID [facility] Last Admin: 03/06/19 09:54 Dose: 5,000 unit Cefepime HCl 1 gm/ Dextrose 100 mls @ 200 mls/hr IVPB BID [facility]; Protocol Last Admin: 03/06/19 09:54 Dose: 200 mls/hr Levothyroxine Sodium (Synthroid -) 50 mcg PO DAILY@0700 [facility] Last Admin: 03/06/19 06:13 Dose: 50 mcg Neomycin/Polymyxin/Hydrocortisone (Cortisporin Otic Suspenstion -) 4 drop AD Q6HPO [facility] Last Admin: 03/06/19 17:33 Dose: 4 drop Pantoprazole Sodium (Protonix -) 40 mg PO DAILY [facility] Last Admin: 03/06/19 09:54 Dose: 40 mg - Objective Vital Signs: Vital Signs Temperature 98.6 F 03/06/19 14:00 Pulse Rate 92 H 03/06/19 14:00 Respiratory Rate 20 03/06/19 14:00 Blood Pressure 106/63 03/06/19 14:00 O2 Sat by Pulse Oximetry (%) 99 03/06/19 09:00 Constitutional: Yes: No Distress, Calm Eyes: Yes: Conjunctiva Clear HENT: Yes: Other (ear looking better, no discharge, less crusting) Cardiovascular: Yes: Regular Rate and Rhythm Respiratory: Yes: Regular, CTA Bilaterally Gastrointestinal: Yes: Soft Extremities: Yes: WNL Labs: CBC, BMP 03/03/19 10:15 03/03/19 10:15 INR, PTT INR 1.25 (0.83-1.09) H 03/02/19 11:50 Assessment/Plan 73F with NSTEMI in 12/2018 s/p HOLLY D1 CHF (EF 45-50%), IgA lambda, myeloma/ amyloidosis c/b nephrotic range proteinuria, on VRD admitted with right ear pain. Suspected to have dermatitis or cellulitis of the right pinna for which she is being treated with abx and topical steroids. ANC normal. Continue to hold revlimid for now. Awaiting optho/derm consult for ?blephritis
--- NOTE | 2019-03-06 21:43 | PN ---
Progress Note, Physician History of Present Illness: No new complaints - Current Medication List Current Medications: Active Medications Acetaminophen (Tylenol -) 650 mg PO Q6H PRN PRN Reason: PAIN Last Admin: 03/05/19 09:29 Dose: 650 mg Albuterol/Ipratropium (Duoneb -) 1 amp NEB Q6H PRN PRN Reason: SHORTNESS OF BREATH Allopurinol (Zyloprim -) 300 mg PO DAILY [facility] Last Admin: 03/06/19 09:55 Dose: 300 mg Aspirin (Asa -) 81 mg PO DAILY [facility] Last Admin: 03/06/19 09:54 Dose: 81 mg Clopidogrel Bisulfate (Plavix -) 75 mg PO DAILY [facility] Last Admin: 03/06/19 09:54 Dose: 75 mg Furosemide (Lasix -) 40 mg PO DAILY [facility] Last Admin: 03/06/19 09:54 Dose: 40 mg Heparin Sodium (Porcine) (Heparin -) 5,000 unit SQ BID [facility] Last Admin: 03/06/19 21:04 Dose: 5,000 unit Cefepime HCl 1 gm/ Dextrose 100 mls @ 200 mls/hr IVPB BID [facility]; Protocol Last Admin: 03/06/19 21:04 Dose: 200 mls/hr Levothyroxine Sodium (Synthroid -) 50 mcg PO DAILY@0700 [facility] Last Admin: 03/06/19 06:13 Dose: 50 mcg Neomycin/Polymyxin/Hydrocortisone (Cortisporin Otic Suspenstion -) 4 drop AD Q6HPO [facility] Last Admin: 03/06/19 17:33 Dose: 4 drop Pantoprazole Sodium (Protonix -) 40 mg PO DAILY [facility] Last Admin: 03/06/19 09:54 Dose: 40 mg - Objective Vital Signs: Vital Signs Temperature 98.6 F 03/06/19 14:00 Pulse Rate 92 H 03/06/19 14:00 Respiratory Rate 20 03/06/19 20:31 Blood Pressure 106/63 03/06/19 14:00 O2 Sat by Pulse Oximetry (%) 98 03/06/19 20:31 HENT: Yes: Other (RT pinna w/ crusted lesion (+) swelling Rt cheek) Neck: Yes: WNL, Supple Cardiovascular: Yes: WNL, Regular Rate and Rhythm Respiratory: Yes: WNL, Regular, CTA Bilaterally Gastrointestinal: Yes: WNL, Normal Bowel Sounds, Soft Labs: CBC, BMP 03/03/19 10:15 03/03/19 10:15 INR, PTT INR 1.25 (0.83-1.09) H 03/02/19 11:50 Problem List - Problems (1) Otitis Assessment/Plan: CT scan showed bone erosions and bone irregularity ?malignant otitis externa Cont IV cefapime/corticosporin drops Reconsult ENT Code(s): H66.90 - OTITIS MEDIA, UNSPECIFIED, UNSPECIFIED EAR (2) Anemia Assessment/Plan: Cont to monitor H/H Code(s): D64.9 - ANEMIA, UNSPECIFIED (3) CAD (coronary artery disease) Assessment/Plan: Cont plavix Code(s): I25.10 - ATHSCL HEART DISEASE OF [place] CORONARY ARTERY W/O ANG PCTRS Qualifiers: (4) CHF (congestive heart failure) Assessment/Plan: Chronic systolic heart failure Cont lasix and monitor electrolytes Code(s): I50.9 - HEART FAILURE, UNSPECIFIED Qualifiers: Heart failure type: systolic Heart failure chronicity: unspecified Qualified Code(s): I50.20 - Unspecified systolic (congestive) heart failure (5) CKD (chronic kidney disease) Code(s): N18.9 - CHRONIC KIDNEY DISEASE, UNSPECIFIED (6) HTN (hypertension) Assessment/Plan: BP meds on hold due to hypotension Encourage PO intake Code(s): I10 - ESSENTIAL (PRIMARY) HYPERTENSION Qualifiers: Hypertension type: unspecified Qualified Code(s): I10 - Essential (primary ) hypertension (7) Hypothyroidism Assessment/Plan: Cont levothyroxine Check TSH Code(s): E03.9 - HYPOTHYROIDISM, UNSPECIFIED (8) Multiple myeloma Code(s): C90.00 - MULTIPLE MYELOMA NOT HAVING ACHIEVED REMISSION Qualifiers: Multiple myeloma remission status: not in remission Qualified Code(s): C90.00 - Multiple myeloma not having achieved remission (9) PAF (paroxysmal atrial fibrillation) Assessment/Plan: Due to h/o bleed Pt is not on AC Heart rate controlled Code(s): I48.0 - PAROXYSMAL ATRIAL FIBRILLATION (10) History of heart artery stent Code(s): Z95.5 - PRESENCE OF CORONARY ANGIOPLASTY IMPLANT AND GRAFT (11) HLD (hyperlipidemia) Code(s): E78.5 - HYPERLIPIDEMIA, UNSPECIFIED Qualifiers: Hyperlipidemia type: unspecified Qualified Code(s): E78.5 - Hyperlipidemia , unspecified
[2019-03-07] MEDS: NEOMYCIN/POLYMYXN/HC OTIC SUSPENSION 10 ML BOTTLE AD SCH ×4 (00:37→17:26)
[2019-03-07] MEDS: LEVOTHYROXINE NA 50 MCG TABLET (FP) PO SCH (05:59)
[2019-03-07 07:07] LABS: BASO % 0.4 % (0-2.0); EOS % 6.4 % (0-4.5); HEMATOCRIT 25.5 % (32.4-45.2); HEMOGLOBIN 8.7 GM/dL (10.7-15.3); LYMPH % 35.5 % (8-40); MCH 31.5 pg (25.7-33.7); MCHC 33.9 g/dl (32.0-36.0); MEAN PLT VOLUME 8.5 fl (7.5-11.1); MONO % 21.5 % (3.8-10.2); NEUT % 36.2 % (42.8-82.8); PLATELET COUNT 185 K/MM3 (134-434); RBC 2.75 M/mm3 (3.60-5.2); RDW 17.4 % (11.6-15.6); WHITE BLOOD COUNT 3.5 K/mm3 (4.0-10.0)
[2019-03-07 07:33] LABS: ALBUMIN 1.6 g/dl (3.4-5.0); ALK PHOS 53 U/L (45-117); ANION GAP 10 MMOL/L (8-16); BILIRUBIN,TOTAL 0.3 mg/dL (0.2-1); BLOOD UREA NITROGEN 24 mg/dL (7-18); CALCIUM 8.6 mg/dL (8.5-10.1); CHLORIDE 108 mmol/L (98-107); CO2 23 mmol/L (21-32); CREATININE 0.7 mg/dL (0.55-1.3); GLUCOSE,RANDOM 92 mg/dL (74-106); POTASSIUM 4.3 mmol/L (3.5-5.1); SGOT/AST 9 U/L (15-37); SGPT/ALT 10 U/L (13-61); SODIUM 141 mmol/L (136-145)
[2019-03-07] MEDS ORDERED: PT OWN MED DRAWER 7, Y5N ONE (09:09)
[2019-03-07] MEDS ORDERED: CEFEPIME HCL 1 GM VIAL (RESTRICTED TO ID) ONE (09:09)
[2019-03-07] MEDS ORDERED: DEXTROSE 5%-WATER 100 ML IVPB ONE (09:09)
[2019-03-07] MEDS: FUROSEMIDE 40 MG TABLET (FP) PO SCH (09:14)
[2019-03-07] MEDS: CLOPIDOGREL BISULFATE 75 MG TABLET (FP) PO SCH (09:14)
[2019-03-07] MEDS: CEFEPIME 1 GM in DEXTROSE 5%-WATER 100 ML IVPB SCH (09:14)
[2019-03-07] MEDS: PANTOPRAZOLE 40 MG TABLET (FP) PO SCH (09:14)
[2019-03-07] MEDS: HEPARIN NA (PORCINE) 5,000 UNITS/ML 1ML VIAL SQ SCH ×2 (09:14→21:46)
[2019-03-07] MEDS: ASPIRIN 81 MG CHEWABLE TABLETS PO SCH (09:14)
--- NOTE | 2019-03-07 09:42 | CONSULT ---
Consult - text type - Consultation Consultation Note: ENT Sorry for any previous confusion on my other consult note. There was no evidence of malignant or regular externa otitis on her clinical exam, so the CT report does not need to be further addressed in the absence of clinical worsening of symptoms, but she does have cerumen impactions that should be addressed as an outpatient, and there is a skin condition of the right pinna and EAC orifice that needs to be treated and monitored.
[2019-03-07] MEDS: ALLOPURINOL 300 MG TABLET (FP) PO SCH (10:57)
--- NOTE | 2019-03-07 15:04 | PN ---
Progress Note (short form) - Note Progress Note: ear is better less swelling Vital Signs Period Temp Pulse Resp BP Sys/Moss Pulse Ox Last 24 Hr 98.0 F-99.4 F 57-105 18-20 105-120/48-76 98-100 cor-rrr lungs clear abd soft,nt ext no edema less edema, no drainage of the right ear ct scan temporal bones-reviewed with radiology- no evidence bone erosion, bilateral soft tissue most c/w anatomic variation as it is bilateral no otitis media pen allergy- tolerates cephalosporins a/p ENT f/u noted- ct scan findings not significant- ear findings more c/w dermatitis of pinna, not otitis externa or media day #6 cefepime, can d/c iv antiibotics, switch to ceftin for another 4 days Multiple myeloma- f/u oncology cad- s/p stent please call back if needed Problem List - Problems (1) Otitis Code(s): H66.90 - OTITIS MEDIA, UNSPECIFIED, UNSPECIFIED EAR (2) Multiple myeloma Code(s): C90.00 - MULTIPLE MYELOMA NOT HAVING ACHIEVED REMISSION (3) Penicillin allergy Code(s): Z88.0 - ALLERGY STATUS TO PENICILLIN (4) CAD (coronary artery disease) Code(s): I25.10 - ATHSCL HEART DISEASE OF [place] CORONARY ARTERY W/O ANG PCTRS Qualifiers:
[2019-03-07 15:27] LABS: MACROCYTOSIS 1+
[2019-03-07 15:28] LABS: OVALOCYTE 1+
--- NOTE | 2019-03-07 15:50 | PN ---
Progress Note (short form) - Note Progress Note: s: no cp sob palps dizzy o: Vital Signs Period Temp Pulse Resp BP Sys/Moss Pulse Ox Last 24 Hr 98.0 F-99.4 F 57-105 18-20 105-120/48-76 98-100 nad no jvd rrr s1s2 no mrg cta bl nl eff aao3 trace pedal edema abd nt nd pos bs no jaundice diaphoresis Current Medications Acetaminophen (Tylenol -) 650 mg PO Q6H PRN PRN Reason: PAIN Last Admin: 03/05/19 09:29 Dose: 650 mg Albuterol/Ipratropium (Duoneb -) 1 amp NEB Q6H PRN PRN Reason: SHORTNESS OF BREATH Allopurinol (Zyloprim -) 300 mg PO DAILY [facility] Last Admin: 03/07/19 10:57 Dose: 300 mg Aspirin (Asa -) 81 mg PO DAILY [facility] Last Admin: 03/07/19 09:14 Dose: 81 mg Cefuroxime Axetil (Ceftin -) 500 mg PO BID [facility] Clopidogrel Bisulfate (Plavix -) 75 mg PO DAILY [facility] Last Admin: 03/07/19 09:14 Dose: 75 mg Furosemide (Lasix -) 40 mg PO DAILY [facility] Last Admin: 03/07/19 09:14 Dose: 40 mg Heparin Sodium (Porcine) (Heparin -) 5,000 unit SQ BID [facility] Last Admin: 03/07/19 09:14 Dose: 5,000 unit Levothyroxine Sodium (Synthroid -) 50 mcg PO DAILY@0700 [facility] Last Admin: 03/07/19 05:59 Dose: 50 mcg Neomycin/Polymyxin/Hydrocortisone (Cortisporin Otic Suspenstion -) 4 drop AD Q6HPO [facility] Last Admin: 03/07/19 11:38 Dose: 4 drop Pantoprazole Sodium (Protonix -) 40 mg PO DAILY [facility] Last Admin: 03/07/19 09:14 Dose: 40 mg EKG: sr, lvh with repol changes, similar to priors cxr: clear lungs echo 12/2018 mildly reduced LV function, apical septal mild hypokinesis, basal anteroseptal mild hypokinesis, mid anteroseptal mild hypokinesis, septal wall mild hypokinesis, nl RV, grade II diastolic dysfunction, LA mildly dilated, mild MR, mild TR, PASP at least 28 mmHg, mild AR, mild MA a/p: 73F h/o cardiomyopathy with mild systolic dysfunction, CAD s/p stent, HTN, HLD, multiple myeloma p/w chest pain, sob, lower ext edema ear infection, hypotension: -abx per ID -holding metoprolol for now given low bp likely due to infection chronic syst chf: -stable on po lasix. IVFs dc'ed, edema improving CAD - no signs of acute ischemia here - cont aspirin, statin, plavix - hold bb as above htn: -holding bb due to low bp here hld: -stable
--- NOTE | 2019-03-07 16:57 | PN ---
Progress Note (short form) - Note Progress Note: Patient seen and examined Was dizzy this morning when out of bed Last Vital Signs Temp Pulse Resp BP Pulse Ox 99.4 F 100 H 20 115/74 98 03/07/19 21:32 03/07/19 21:32 03/07/19 21:32 03/07/19 21:32 03/07/19 21:00 eyelid rash/conjunctival erythema Cor: RSR, No murmurs, No gallops Lungs: Clear to P&A Abd: Soft, Normal bowel sounds, No organomegaly Ext:No significant edema right ear --lesions healed Labs/Meds reviewed A/P 73 y/o patient with myeloma/amyloidosis/ nephrotic syndrome/CAD/CHF on velcade/ revlimid/dexamethasone admitted with hypotension/ right ear pain/swelling Started revlimid 2 weeks back ? otitis externa// ? dermatitis outpatient derm follow up decrease lasix dose transfuse PRBCS prior to discharge
[2019-03-07] MEDS: CEFUROXIME AXETIL 500 MG TABLET PO SCH (21:46)
--- NOTE | 2019-03-08 02:17 | PN ---
Progress Note, Physician History of Present Illness: Pt seen and examined on 03/07/19 however note is being entered now - Current Medication List Current Medications: Active Medications Acetaminophen (Tylenol -) 650 mg PO Q6H PRN PRN Reason: PAIN Last Admin: 03/05/19 09:29 Dose: 650 mg Albuterol/Ipratropium (Duoneb -) 1 amp NEB Q6H PRN PRN Reason: SHORTNESS OF BREATH Allopurinol (Zyloprim -) 300 mg PO DAILY [facility] Last Admin: 03/07/19 10:57 Dose: 300 mg Aspirin (Asa -) 81 mg PO DAILY [facility] Last Admin: 03/07/19 09:14 Dose: 81 mg Cefuroxime Axetil (Ceftin -) 500 mg PO BID [facility] Last Admin: 03/07/19 21:46 Dose: 500 mg Clopidogrel Bisulfate (Plavix -) 75 mg PO DAILY [facility] Last Admin: 03/07/19 09:14 Dose: 75 mg Furosemide (Lasix -) 20 mg PO DAILY [facility] Heparin Sodium (Porcine) (Heparin -) 5,000 unit SQ BID [facility] Last Admin: 03/07/19 21:46 Dose: 5,000 unit Levothyroxine Sodium (Synthroid -) 50 mcg PO DAILY@0700 [facility] Last Admin: 03/07/19 05:59 Dose: 50 mcg Neomycin/Polymyxin/Hydrocortisone (Cortisporin Otic Suspenstion -) 4 drop AD Q6HPO [facility] Last Admin: 03/07/19 17:26 Dose: 4 drop Pantoprazole Sodium (Protonix -) 40 mg PO DAILY [facility] Last Admin: 03/07/19 09:14 Dose: 40 mg - Objective Vital Signs: Vital Signs Temperature 99.4 F 03/07/19 21:32 Pulse Rate 100 H 03/07/19 21:32 Respiratory Rate 20 03/07/19 21:32 Blood Pressure 115/74 03/07/19 21:32 O2 Sat by Pulse Oximetry (%) 98 03/07/19 21:00 Labs: CBC, BMP 03/07/19 06:00 03/07/19 06:00 INR, PTT INR 1.25 (0.83-1.09) H 03/02/19 11:50 Problem List - Problems (1) Otitis Code(s): H66.90 - OTITIS MEDIA, UNSPECIFIED, UNSPECIFIED EAR (2) Anemia Code(s): D64.9 - ANEMIA, UNSPECIFIED (3) CAD (coronary artery disease) Code(s): I25.10 - ATHSCL HEART DISEASE OF [place] CORONARY ARTERY W/O ANG PCTRS Qualifiers: (4) CHF (congestive heart failure) Code(s): I50.9 - HEART FAILURE, UNSPECIFIED Qualifiers: Heart failure type: systolic Heart failure chronicity: unspecified Qualified Code(s): I50.20 - Unspecified systolic (congestive) heart failure (5) CKD (chronic kidney disease) Code(s): N18.9 - CHRONIC KIDNEY DISEASE, UNSPECIFIED (6) HTN (hypertension) Code(s): I10 - ESSENTIAL (PRIMARY) HYPERTENSION Qualifiers: Hypertension type: unspecified Qualified Code(s): I10 - Essential (primary ) hypertension (7) Hypothyroidism Code(s): E03.9 - HYPOTHYROIDISM, UNSPECIFIED (8) Multiple myeloma Code(s): C90.00 - MULTIPLE MYELOMA NOT HAVING ACHIEVED REMISSION Qualifiers: Multiple myeloma remission status: not in remission Qualified Code(s): C90.00 - Multiple myeloma not having achieved remission (9) PAF (paroxysmal atrial fibrillation) Code(s): I48.0 - PAROXYSMAL ATRIAL FIBRILLATION (10) History of heart artery stent Code(s): Z95.5 - PRESENCE OF CORONARY ANGIOPLASTY IMPLANT AND GRAFT (11) HLD (hyperlipidemia) Code(s): E78.5 - HYPERLIPIDEMIA, UNSPECIFIED Qualifiers: Hyperlipidemia type: unspecified Qualified Code(s): E78.5 - Hyperlipidemia , unspecified
[2019-03-08] MEDS: LEVOTHYROXINE NA 50 MCG TABLET (FP) PO SCH (05:59)
[2019-03-08] MEDS: NEOMYCIN/POLYMYXN/HC OTIC SUSPENSION 10 ML BOTTLE AD SCH ×3 (06:00→11:55)
--- NOTE | 2019-03-08 07:19 | PN ---
Progress Note (short form) - Note Progress Note: ENT Right ear feels fine now. No further discharge or pain. P/right pinna skin is intact and without swelling or tenderness Imp: resolving right auricular dermatitis/cellulitis Recommend: Would continue cortisporin ear drops for a full week Outpatient follow up re the cerumen impactions Reconsult if worsens
[2019-03-08 08:45] VITALS: PULSE 98; TEMP 98.4
[2019-03-08] MEDS ORDERED: PT OWN MED DRAWER 7, Y5N ONE (09:56)
[2019-03-08] MEDS: PANTOPRAZOLE 40 MG TABLET (FP) PO SCH (09:58)
[2019-03-08] MEDS: ALLOPURINOL 300 MG TABLET (FP) PO SCH (09:58)
[2019-03-08] MEDS: CLOPIDOGREL BISULFATE 75 MG TABLET (FP) PO SCH (09:58)
[2019-03-08] MEDS: HEPARIN NA (PORCINE) 5,000 UNITS/ML 1ML VIAL SQ SCH (09:58)
[2019-03-08] MEDS: ASPIRIN 81 MG CHEWABLE TABLETS PO SCH (09:58)
[2019-03-08] MEDS: CEFUROXIME AXETIL 500 MG TABLET PO SCH (09:58)
[2019-03-08] MEDS ORDERED: FUROSEMIDE 20 MG TABLET (FP) PO SCH (10:00)
--- NOTE | 2019-03-08 15:27 | PN ---
Progress Note (short form) - Note Progress Note: s: no cp sob palps dizzy o: Vital Signs Period Temp Pulse Resp BP Sys/Moss Pulse Ox Last 24 Hr 98.4 F-99.4 F 98-100 18-20 104-115/53-74 96-98 nad no jvd rrr s1s2 no mrg cta bl nl eff aao3 trace pedal edema abd nt nd pos bs no jaundice diaphoresis Current Medications Generic Name Dose Route Start Last Admin Trade Name Freq PRN Reason Stop Dose Admin Acetaminophen 650 mg 03/03/19 04:36 03/05/19 09:29 Tylenol - PO 650 mg Q6H PRN Administration PAIN Allopurinol 300 mg 03/03/19 10:00 03/08/19 09:58 Zyloprim - PO 300 mg DAILY [facility] Administration Aspirin 81 mg 03/03/19 10:00 03/08/19 09:58 Asa - PO 81 mg DAILY [facility] Administration Cefuroxime Axetil 500 mg 03/07/19 22:00 03/08/19 09:58 Ceftin - PO 500 mg BID [facility] Administration Clopidogrel Bisulfate 75 mg 03/03/19 10:00 03/08/19 09:58 Plavix - PO 75 mg DAILY [facility] Administration Furosemide 20 mg 03/08/19 10:00 03/08/19 09:58 Lasix - PO 20 mg DAILY [facility] Administration Heparin Sodium (Porcine) 5,000 unit 03/03/19 10:00 03/08/19 09:58 Heparin - SQ 5,000 unit BID [facility] Administration Levothyroxine Sodium 50 mcg 03/03/19 07:00 03/08/19 05:59 Synthroid - PO 50 mcg DAILY@0700 [facility] Administration Neomycin/Polymyxin/Hydrocortisone 4 drop 03/05/19 12:09 03/08/19 11:55 Cortisporin Otic Suspenstion - AD 4 drop Q6HPO [facility] Administration Pantoprazole Sodium 40 mg 03/03/19 10:00 03/08/19 09:58 Protonix - PO 40 mg DAILY [facility] Administration CBC, BMP 03/07/19 06:00 03/07/19 06:00 EKG: sr, lvh with repol changes, similar to priors cxr: clear lungs echo 12/2018 mildly reduced LV function, apical septal mild hypokinesis, basal anteroseptal mild hypokinesis, mid anteroseptal mild hypokinesis, septal wall mild hypokinesis, nl RV, grade II diastolic dysfunction, LA mildly dilated, mild MR, mild TR, PASP at least 28 mmHg, mild AR, mild TN a/p: ear infection, hypotension: -abx per ID -holding metoprolol for now given low bp likely due to infection chronic syst chf: -stable on po lasix. IVFs dc'ed, edema improving CAD - no signs of acute ischemia here - cont aspirin, statin, plavix - hold bb as above htn: -holding bb due to low bp here hld: -stable cardiac oh stable, continue to hold bb as bp on lower side, can f/u as outpt
[2019-03-08 15:59] VITALS: BP 134/67
== END 2019-03-08 16:45 | disposition home health service (06) | DRG 315 ==
LOC: JER 09:39 → JERBED 12:46 → J6S 16:14
PROVIDERS: ADMIT Internal Medicine; ATTEND Internal Medicine
PROC: 30233N1 Transfusion of Nonautologous Red Blood Cells into Peripheral Vein, Percutaneous Approach (ICD-10-PCS; principal; 2019-03-02)
DX: I95.9 Hypotension, unspecified (principal); C90.00 Multiple myeloma not having achieved remission; I50.22 Chronic systolic (congestive) heart failure; I13.0 Hypertensive heart and chronic kidney disease with heart failure and stage 1 through stage 4 chronic kidney disease, or unspecified chronic kidney disease; I42.8 Other cardiomyopathies; H66.91 Otitis media, unspecified, right ear; I25.10 Atherosclerotic heart disease of native coronary artery without angina pectoris; I25.2 Old myocardial infarction; E78.5 Hyperlipidemia, unspecified; K44.9 Diaphragmatic hernia without obstruction or gangrene; K62.1 Rectal polyp; D64.9 Anemia, unspecified; E03.9 Hypothyroidism, unspecified; K76.89 Other specified diseases of liver; E78.00 Pure hypercholesterolemia, unspecified; E86.0 Dehydration; F32.9 Major depressive disorder, single episode, unspecified; H72.91 Unspecified perforation of tympanic membrane, right ear; H60.11 Cellulitis of right external ear; I48.91 Unspecified atrial fibrillation; N18.9 Chronic kidney disease, unspecified; Z88.0 Allergy status to penicillin; Z87.891 Personal history of nicotine dependence; Z95.5 Presence of coronary angioplasty implant and graft
CPT/HCPCS: 36415; 36430; 36511; 70480-TC; 71045-TC-FY; 80053; 84443; 85025; 85610; 86850; 86900; 86901; 86922; 87040; 93005; 93010; 99285-25; J1644; J7030; P9038; P9058

== ENCOUNTER → 2019-03-02 | Day surgery (SDC) | payer OTHER | LOC: JONCCHEMO 07:07 ==

== ENCOUNTER 2019-03-09 07:08 | Day surgery (SDC) | payer OTHER ==
[2019-03-09] MEDS ORDERED: DEXAMETHASONE 4 MG TABLET (FP) PO ONE (08:00)
[2019-03-09] MEDS ORDERED: ONDANSETRON 8 MG TABLET (FP) PO ONE (08:00)
[2019-03-09] MEDS ORDERED: BORTEZOMIB (VELCADE) 2.5 MG/ML SUB-Q INJECTION SQ ONE (08:30)
[2019-03-09 11:03] LABS: BASO % 0.4 % (0-2.0); EOS % 1.7 % (0-4.5); HEMATOCRIT 26.8 % (32.4-45.2); LYMPH % 31.2 % (8-40); MCH 31.6 pg (25.7-33.7); MCHC 33.5 g/dl (32.0-36.0); MEAN CELL VOLUME 94.4 fl (80-96); MEAN PLT VOLUME 8.1 fl (7.5-11.1); MONO % 17.9 % (3.8-10.2); NEUT % 48.8 % (42.8-82.8); PLATELET COUNT 243 K/MM3 (134-434); RBC 2.84 M/mm3 (3.60-5.2); RDW 17.5 % (11.6-15.6); WHITE BLOOD COUNT 4.2 K/mm3 (4.0-10.0)
[2019-03-09 11:33] LABS: ALBUMIN 1.9 g/dl (3.4-5.0); BILIRUBIN,DIRECT 0.1 mg/dL (0.0-0.2); BILIRUBIN,TOTAL 0.6 mg/dL (0.2-1); CALCIUM 9.5 mg/dL (8.5-10.1); CREATININE 0.8 mg/dL (0.55-1.3); MAGNESIUM 2.3 mg/dL (1.8-2.4); POTASSIUM 4.6 mmol/L (3.5-5.1); TOT PROT 7.2 g/dl (6.4-8.2)
[2019-03-09 16:31] VITALS: BP 101/50; PULSE 90; TEMP 98.4
== END 2019-03-09 13:00 | disposition home or self-care (01) ==
LOC: JONCCHEMO 07:08 → J7W 11:48 → JONCCHEMO 13:00
PROVIDERS: ATTEND Internal Medicine Hematology & Oncology
DX: Z51.11 Encounter for antineoplastic chemotherapy (principal); C90.00 Multiple myeloma not having achieved remission
CPT/HCPCS: 36415; 80048; 80076; 83735; 85025; 86850; 86900; 86901; 96401; J9041

== ENCOUNTER 2019-03-16 07:13 | Day surgery (SDC) | payer OTHER ==
[2019-03-16 09:27] LABS: BASO % 0.7 % (0-2.0); EOS % 2.2 % (0-4.5); HEMATOCRIT 28.8 % (32.4-45.2); HEMOGLOBIN 9.2 GM/dL (10.7-15.3); LYMPH % 18.5 % (8-40); MCH 31.2 pg (25.7-33.7); MCHC 31.9 g/dl (32.0-36.0); MEAN CELL VOLUME 97.8 fl (80-96); MEAN PLT VOLUME 9.8 fl (7.5-11.1); MONO % 8.9 % (3.8-10.2); NEUT % 69.7 % (42.8-82.8); PLATELET COUNT 192 K/MM3 (134-434); RBC 2.94 M/mm3 (3.60-5.2); RDW 18.1 % (11.6-15.6); WHITE BLOOD COUNT 4.8 K/mm3 (4.0-10.0)
[2019-03-16] MEDS ORDERED: ONDANSETRON 4 MG TABLET PO ONE (10:00)
[2019-03-16] MEDS ORDERED: DEXAMETHASONE 4 MG TABLET (FP) PO ONE (10:00)
[2019-03-16] MEDS ORDERED: BORTEZOMIB (VELCADE) 2.5 MG/ML SUB-Q INJECTION SQ ONE (10:30)
[2019-03-16 10:57] LABS: ALBUMIN 1.8 g/dl (3.4-5.0); BILIRUBIN,TOTAL 0.5 mg/dL (0.2-1); CALCIUM 8.7 mg/dL (8.5-10.1); CREATININE 0.9 mg/dL (0.55-1.3); MAGNESIUM 2.2 mg/dL (1.8-2.4); POTASSIUM 4.9 mmol/L (3.5-5.1); TOT PROT 7.2 g/dl (6.4-8.2); URIC ACID 3.1 mg/dL (2.6-7.2)
[2019-03-16 10:58] LABS: URINE APPEARANCE CLOUDY; URINE BACTERIA 3.2 /hpf (NEGATIVE); URINE BILIRUBIN NEGATIVE (NEGATIVE); URINE CASTS 136 /lpf (0-8); URINE COLOR YELLOW; URINE GLUCOSE (UA) NEGATIVE (NEGATIVE); URINE KETONE NEGATIVE (NEGATIVE); URINE LEUK ESTERASE TRACE (NEGATIVE); URINE NITRITE NEGATIVE (NEGATIVE); URINE PROTEIN 4+ (NEGATIVE); URINE RBC 6 /hpf (0-4); URINE WBC 15 /hpf (0-5)
[2019-03-16 15:28] VITALS: BP 117/76; PULSE 103; TEMP 99.2
== END 2019-03-16 11:30 | disposition home or self-care (01) ==
LOC: JONCCHEMO 07:13 → J7W 10:15 → JONCCHEMO 11:30
PROVIDERS: ATTEND Internal Medicine Hematology & Oncology
DX: Z51.11 Encounter for antineoplastic chemotherapy (principal); C90.00 Multiple myeloma not having achieved remission
CPT/HCPCS: 36415; 80053; 81003; 83615; 83735; 84550; 85025; 87086; 96401; J9041

== ENCOUNTER 2019-03-17 07:56 | Inpatient (IN) | payer OTHER | END 2019-03-28 14:46 | disposition home health service (06) | LOC: J4W 03-25 14:36 → JER 07:56 → JERBED 10:22 → J4W 20:29 ==

== ENCOUNTER 2019-03-30 07:04 | Day surgery (SDC) | payer OTHER ==
[2019-03-30 09:36] LABS: BASO % 1.4 % (0-2.0); EOS % 0.7 % (0-4.5); HEMATOCRIT 29.4 % (32.4-45.2); HEMOGLOBIN 9.6 GM/dL (10.7-15.3); LYMPH % 25.4 % (8-40); MCH 31.7 pg (25.7-33.7); MCHC 32.5 g/dl (32.0-36.0); MEAN CELL VOLUME 97.5 fl (80-96); MEAN PLT VOLUME 8.7 fl (7.5-11.1); MONO % 9.3 % (3.8-10.2); NEUT % 63.2 % (42.8-82.8); PLATELET COUNT 205 K/MM3 (134-434); RBC 3.02 M/mm3 (3.60-5.2); RDW 18.2 % (11.6-15.6); WHITE BLOOD COUNT 4.4 K/mm3 (4.0-10.0)
[2019-03-30] MEDS ORDERED: DEXAMETHASONE 4 MG TABLET (FP) PO ONE (10:00)
[2019-03-30] MEDS ORDERED: ONDANSETRON 8 MG TABLET (FP) PO ONE (10:00)
[2019-03-30] MEDS ORDERED: BORTEZOMIB (VELCADE) 2.5 MG/ML SUB-Q INJECTION SQ ONE (10:30)
[2019-03-30 10:34] LABS: CREATININE 0.9 mg/dL (0.55-1.3); POTASSIUM 4.6 mmol/L (3.5-5.1)
[2019-03-30 10:35] LABS: ALBUMIN 1.8 g/dl (3.4-5.0); BILIRUBIN,DIRECT 0.1 mg/dL (0.0-0.2); BILIRUBIN,TOTAL 0.4 mg/dL (0.2-1); CALCIUM 8.8 mg/dL (8.5-10.1); MAGNESIUM 2.6 mg/dL (1.8-2.4); TOT PROT 6.8 g/dl (6.4-8.2)
[2019-03-30 15:43] VITALS: BP 124/68; PULSE 87; TEMP 97.8
== END 2019-03-30 11:30 | disposition home or self-care (01) ==
LOC: JONCCHEMO 07:04 → J7W 10:20 → JONCCHEMO 11:30
PROVIDERS: ATTEND Internal Medicine Hematology & Oncology
DX: Z51.11 Encounter for antineoplastic chemotherapy (principal); C90.00 Multiple myeloma not having achieved remission
CPT/HCPCS: 36415; 80048; 80076; 83615; 83735; 84550; 85025; 96401; J9041

== ENCOUNTER 2019-04-06 06:57 | Day surgery (SDC) | payer OTHER | END 2019-04-06 11:40 | disposition home or self-care (01) | LOC: JONCCHEMO 06:57 → J7W 10:56 → JONCCHEMO 11:40 ==

== ENCOUNTER 2019-04-09 11:10 | Emergency (ER) | payer OTHER ==
[2019-04-09 11:18] VITALS: BMI 22.8
[2019-04-09] MEDS ORDERED: METOCLOPRAMIDE HCL INJECTION 10 MG/2 ML VIAL IVPUSH ONE (11:38)
[2019-04-09] MEDS ORDERED: ACETAMINOPHEN 1000 MG/100 ML VIAL (NON FORMULARY) IVPB ONE (11:38)
[2019-04-09] MEDS ORDERED: SODIUM CHLORIDE 0.9% 500 ML INFUS.BAG IV ONE (11:39)
[2019-04-09] MEDS ORDERED: ACETAMINOPHEN INJECTION 100 ML IVPB ONE (11:54)
[2019-04-09] MEDS ORDERED: METOCLOPRAMIDE HCL INJECTION 10 MG/2 ML VIAL ONE (11:54)
--- NOTE | 2019-04-09 11:59 | PDOC ---
History of Present Illness - General Chief Complaint: Diarrhea Stated Complaint: DIARRHEA/COLD SYMPTOMS Time Seen by Provider: 04/09/19 11:24 - History of Present Illness Initial Comments: 04/09/19 12:07 HPI obtained from patient interview and review of EMR The patient is a 73 year old female with a PMH of Multiple Myeloma (on velcade/ decadron), CAD (s/p HOLLY D1, NSTEMI), Chronic systolic CHF, mildly reduced LV function with EF 45%), HTN, Hyperlipidemia, Asthma, hiatal hernia, rectal polyp , Renal Insufficiency, proteinuria, and Hypothyroidism who presents to the ED c/ o diarrhea and headache. Patient states she had 4 episodes of loose watery stool on . Yesterday she had one normal bowel movement and today she has not had a bowel movement. Headache is global, aching and patient states this is the headache she often experiences when she is having an episode of low blood pressure. Patient's follows with Dr. Minaya for her multiple myeloma and states her most recent chemotherapy was on Thursday afternoon. Patient lives at home with her son and completes her ADL's without assistance. The patient denies fevers/chills, abdominal pain, nausea/vomiting, diarrhea/ constipation, chest pain, shortness of breath. Allergy: Penicillin Oncologist: Dr. Minaya As per EMR, patient evaluated 03/2016 for shortness of breath, pulmonary edema on CXR, and elevated BNP, patient admitted for CHF exacerbation. Past History - Past Medical History Allergies/Adverse Reactions: Allergies Allergy/AdvReac Type Severity Reaction Status Date / Time Penicillins Allergy Severe Rash Verified 04/09/19 11:39 Home Medications: Ambulatory Orders Allopurinol [Zyloprim -] 300 mg PO DAILY #30 tablet 11/09/18 Pantoprazole Sodium [Protonix -] 40 mg PO DAILY #30 tablet.ec 11/09/18 Aspirin [ASA -] 81 mg PO DAILY 12/30/18 Clopidogrel Bisulfate [Plavix -] 75 mg PO DAILY #30 tablet 01/07/19 Valacyclovir HCl [Valtrex -] 500 mg PO DAILY #30 tablet 01/07/19 Levothyroxine [Synthroid -] 75 mcg PO DAILY@0700 01/28/19 Potassium Chloride [K-Dur -] 20 meq PO DAILY 01/28/19 Carvedilol [Coreg -] 3.125 mg PO BID #60 tablet 03/28/19 Atorvastatin Ca [Lipitor] 40 mg PO HS 04/09/19 Lenalidomide [Revlimid] 10 mg PO DAILY 04/09/19 Loratadine 10 mg PO DAILY 04/09/19 Nystatin 5 ml PO QID 04/09/19 Torsemide [Demadex] 10 mg PO DAILY 04/09/19 Anemia: Yes Asthma: Yes Cancer: Yes (MULTIPLE MYELOMA) Cardiac Disorders: Yes (CHEST PAIN, SOB,TN, stent) CVA: No COPD: No CHF: Yes Dementia: No Diabetes: Yes GI Disorders: Yes (HIATAL HERNIA REPAIR) Disorders: No HTN: Yes Hypercholesterolemia: Yes Liver Disease: Yes (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) Seizures: No Thyroid Disease: Yes (hypo) - Surgical History Abdominal Surgery: (Yes, HIATAL HERNIA) Appendectomy: No Cardiac Surgery: Yes (stent placement) Cholecystectomy: No Lung Surgery: No Neurologic Surgery: No Orthopedic Surgery: Yes (carpal tunnel ) - Immunization History Immunization Up to Date: Yes - Suicide/Smoking/Psychosocial Hx Smoking History: Never smoked Have you smoked in the past 12 months: No Number of Cigarettes Smoked Daily: 5 If you are a former smoker, when did you quit?: 1970 Cigars Per Day: 4 Information on smoking cessation initiated: No 'Breaking Loose' booklet given: 01/29/19 Hx Alcohol Use: No Drug/Substance Use Hx: No Substance Use Type: None Hx Substance Use Treatment: No Review of Systems - Review of Systems Constitutional: No: Chills, Fever HEENTM: Yes: Other (Rhinorrhea) Respiratory: Yes: Cough Cardiac (ROS): No: Chest Pain, Lightheadedness, Palpitations, Syncope ABD/GI: No: Constipated, Diarrhea, Nausea, Vomiting, Abdominal cramping *Physical Exam - Vital Signs Last Vital Signs Temp Pulse Resp BP Pulse Ox 98.9 F 78 16 97/49 L 98 04/09/19 11:14 04/09/19 11:14 04/09/19 11:14 04/09/19 11:14 04/09/19 11:14 - Physical Exam General Appearance: Yes: Nourished, Appropriately Dressed HEENT: positive: Normal Voice, Hearing Grossly Normal Neck: positive: Trachea midline, Supple Respiratory/Chest: positive: Lungs Clear, Normal Breath Sounds. negative: Labored Respiration, Rapid RR Cardiovascular: positive: S1, S2. 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 Hypotensive (97/49) - other VS unremarkable; patient has h/o low BP, SBP's 90's- low 100's Will draw basic labs, gentle hydration, IV Tylenol discuss case with patient's oncologist, Dr. Minaya. Reassess 04/09/19 13:56 Hb stable @ 9 - anemia likely 2/2 to MM BP remains stable @ 98/52 which as per EMR appears to be near patient's baseline. Patient resting comfortably, symptomatically improved, requesting PO intake. Ambulatory around unit. 04/09/19 14:10 Case d/w Dr. Morales, covering for patient's oncologist Dr. Minaya - agrees with d/c home as there are no acute findings on her labs. Patient counseled on return precautions, discharged home. I discussed the physical exam findings, ancillary test results and final diagnoses with the patient. I answered all of the patient's questions. The patient was satisfied with the care received and felt comfortable with the discharge plan and treatment plan. The patient will return to the Emergency Department with any new, persistent or worsening symptoms. *DC/Admit/Observation/Transfer Diagnosis at time of Disposition: Headache - Discharge Dispostion Disposition: HOME Condition at time of disposition: Stable Decision to Admit order: No - Referrals Referrals: Milton Benavides MD [Primary Care Provider] - - Patient Instructions Printed Discharge Instructions: DI for Headache Additional Instructions: Please make a follow-up appointment with your primary care doctor in the next 3 days and follow up with your oncologist as previously scheduled. Return to the Emergency Department for any new/worsening/concerning symptoms. - Post Discharge Activity
--- NOTE | 2019-04-09 12:17 | PDOC ---
Documentation entered by Charity Foster SCRIBE, acting as scribe for Donald Denise MD. Donald Denise MD: This documentation has been prepared by the Kristin bill Sammi, SCRIBE, under my direction and personally reviewed by me in its entirety. I confirm that the documentation accurately reflects all work, treatment, procedures, and medical decision making performed by me. Attending Attestation - Resident Resident Name: Silvia Kerns - ED Attending Attestation I have performed the following: I have examined & evaluated the patient, The case was reviewed & discussed with the resident, I agree w/resident's findings & plan, Exceptions are as noted - HPI HPI: 04/09/19 12:00 The patient is a 74 year old female, with a significant PMH of CAD (s/p HOLLY D1 NSTEMI), CHF (Chronic systolic CHF, mildly reduced LV function with EF 45%), HTN , Hyperlipidemia, Asthma, hiatal hernia, rectal polyp, Renal Insufficiency, proteinuria, Multiple Myeloma on velcade/decadron, revlamide, and Hypothyroidism , who presents to the emergency department for evaluation of 6 episodes of non- bloody loose watery stool since . She notes a headache and feels as if she has a low blood pressure. The patient also reports 1 week of a non- productive cough and runny nose. The patient denies chest pain and shortness of breath. Denies fever, chills, nausea, vomit, and constipation. Denies dysuria, frequency, urgency and hematuria. Allergies: Penicillin Oncologist: Sade - Physicial Exam PE: 04/09/19 12:08 Vitals: Triage vital signs reviewed General Appearance: No acute distress, well nourished, well developed Neck: Supple; No nuchal rigidity Chest Wall: Nontender Cardiac: Regular rate and rhythm, no murmurs, no rubs, no gallops Lungs: Clear to auscultation bilateral, good air movement bilaterally Abdomen: Soft, nondistended, normal bowel sounds, nontender to palpation Extremities: Full range of motion to all extremities, no cyanosis, clubbing, or edema Skin: Warm and dry, no rashes or lesions, no rash, no petechiae Psych: Normal mood, normal affect - Medical Decision Making 06/08/19 14:57 The patient is a 74 year old female, with a significant PMH of CAD (s/p HOLLY D1 NSTEMI), CHF (Chronic systolic CHF, mildly reduced LV function with EF 45%), HTN , Hyperlipidemia, Asthma, hiatal hernia, rectal polyp, Renal Insufficiency, proteinuria, Multiple Myeloma on velcade/decadron, revlamide, and Hypothyroidism , who presents to the emergency department for evaluation of 6 episodes of non- bloody loose watery stool since . She notes a headache and feels as if she has a low blood pressure. Patient ordered for basic blood work IV Tylenol and 500 mL of normal saline Reevaluation 2:30 PM. Patient feels much better headache has resolved. Her blood work is unremarkable her H&H is baseline Case discussed with patient's oncologist given no acute findings on her workup here patient is stable for discharge home she'll follow-up with her doctor next week she'll return to the ED for any severe worsening symptoms or for any concerns.
[2019-04-09 12:49] LABS: ALBUMIN 1.8 g/dl (3.4-5.0); BILIRUBIN,TOTAL 0.6 mg/dL (0.2-1); BLOOD UREA NITROGEN 21.8 mg/dL (7-18); CALCIUM 8.6 mg/dL (8.5-10.1); MAGNESIUM 2.2 mg/dL (1.8-2.4); POTASSIUM 4.1 mmol/L (3.5-5.1); TOT PROT 6.3 g/dl (6.4-8.2)
[2019-04-09 13:46] LABS: BASO % 1.4 % (0-2.0); HEMATOCRIT 30.2 % (32.4-45.2); HEMOGLOBIN 9.9 GM/dL (10.7-15.3); LYMPH % 23.5 % (8-40); MCH 31.9 pg (25.7-33.7); MCHC 32.7 g/dl (32.0-36.0); MEAN CELL VOLUME 97.5 fl (80-96); MEAN PLT VOLUME 9.8 fl (7.5-11.1); NEUT % 59.1 % (42.8-82.8)
[2019-04-09 13:48] LABS: WHITE BLOOD COUNT 5.9 K/mm3 (4.0-10.0)
[2019-04-09 14:53] VITALS: BP 98/52; PULSE 74; TEMP 98.6
[2019-04-09 16:56] LABS: PLATELET COUNT 192 K/MM3 (134-434)
--- NOTE | 2019-04-10 08:31 | EKG ---
Test Reason : Blood Pressure : / mmHG Vent. Rate : 075 BPM Atrial Rate : 075 BPM P-R Int : 146 ms QRS Dur : 098 ms QT Int : 388 ms P-R-T Axes : 045 -21 182 degrees QTc Int : 433 ms POOR DATA QUALITY, INTERPRETATION MAY BE ADVERSELY AFFECTED SINUS RHYTHM WITH PREMATURE ATRIAL COMPLEXES ABNORMAL ECG WHEN COMPARED WITH ECG OF 23-MAR-2019 08:59, FUSION COMPLEXES ARE NO LONGER PRESENT PREMATURE ATRIAL COMPLEXES ARE NOW PRESENT Confirmed by MELISSA WHITE MD ([id number]) on 04/10/2019 8:30:48 AM Referred By: Confirmed By:MELISSA WHITE MD
== END 2019-04-09 14:55 | disposition home or self-care (01) ==
LOC: JER 11:10
PROC: 3E033NZ Introduction of Analgesics, Hypnotics, Sedatives into Peripheral Vein, Percutaneous Approach (ICD-10-PCS; principal; 2019-04-09)
PROC: 3E033GC Introduction of Other Therapeutic Substance into Peripheral Vein, Percutaneous Approach (ICD-10-PCS; 2019-04-09)
DX: R51 Headache (principal); C90.00 Multiple myeloma not having achieved remission; I25.10 Atherosclerotic heart disease of native coronary artery without angina pectoris; I11.0 Hypertensive heart disease with heart failure; Z95.5 Presence of coronary angioplasty implant and graft; I50.22 Chronic systolic (congestive) heart failure; E78.5 Hyperlipidemia, unspecified; E03.9 Hypothyroidism, unspecified
CPT/HCPCS: 36415; 71045-TC-FY; 80053; 83735; 85025; 93005; 93010; 96374; 96375; 99282-25; J0131

== ENCOUNTER 2019-04-12 15:44 | Emergency (ER) | payer OTHER ==
[2019-04-12 16:02] VITALS: BMI 22.3
--- NOTE | 2019-04-12 16:14 | PDOC ---
History of Present Illness - General Chief Complaint: Rash Stated Complaint: ALLERGIC REACTION Time Seen by Provider: 04/12/19 16:06 - History of Present Illness Initial Comments: 04/12/19 16:12 74 yo F with h/o CAD, CHF, HTN, HLD, Multiple Myeloma ( on Velcade, Revlamide ) who p/w rash to BL breast. Patient reports 3 days of rash under both breast. Has attempted OTC ointment, unable to recall name. Denies drainage or discharge. Patient endorses ongoing diffuse, headache. Seen in ED (04/09/19) negative workup, treated with Tylenol and improved. Patient denies vision change, palpitations, cough, wheezing, orthopena, PND, leg swelling/pain, N/V, F,C, CP, SOB, urinary complaints, hematuria, BPR, abdominal pain, diarrhea, constipation, lightheadedness, weakness, sensory changes. PMHx: as noted above ROS: as noted SHx: Denies Etoh, IVDA, tobacco use Allergies: NKDA Past History - Past Medical History Allergies/Adverse Reactions: Allergies Allergy/AdvReac Type Severity Reaction Status Date / Time Penicillins Allergy Severe Rash Verified 04/13/19 09:58 Home Medications: Ambulatory Orders Allopurinol [Zyloprim -] 300 mg PO DAILY #30 tablet 11/09/18 Pantoprazole Sodium [Protonix -] 40 mg PO DAILY #30 tablet.ec 11/09/18 Aspirin [ASA -] 81 mg PO DAILY 12/30/18 Clopidogrel Bisulfate [Plavix -] 75 mg PO DAILY #30 tablet 01/07/19 Valacyclovir HCl [Valtrex -] 500 mg PO DAILY #30 tablet 01/07/19 Levothyroxine [Synthroid -] 75 mcg PO DAILY@0700 01/28/19 Potassium Chloride [K-Dur -] 10 meq PO DAILY 01/28/19 Carvedilol [Coreg -] 3.125 mg PO BID #60 tablet 03/28/19 Atorvastatin Ca [Lipitor] 40 mg PO HS 04/09/19 Loratadine 10 mg PO DAILY 04/09/19 Torsemide [Demadex] 10 mg PO DAILY 04/09/19 Anemia: Yes Asthma: Yes Cancer: Yes (MULTIPLE MYELOMA) Cardiac Disorders: Yes (CHEST PAIN, SOB,[place], stent) CVA: No COPD: No CHF: Yes Dementia: No Diabetes: Yes GI Disorders: Yes (HIATAL HERNIA REPAIR) Disorders: No HTN: Yes Hypercholesterolemia: Yes Liver Disease: Yes (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) Seizures: No Thyroid Disease: Yes (hypo) - Surgical History Abdominal Surgery: (Yes, HIATAL HERNIA) Appendectomy: No Cardiac Surgery: Yes (stent placement) Cholecystectomy: No Lung Surgery: No Neurologic Surgery: No Orthopedic Surgery: Yes (carpal tunnel ) - Immunization History Immunization Up to Date: Yes - Suicide/Smoking/Psychosocial Hx Smoking History: Unknown if ever smoked Have you smoked in the past 12 months: No Number of Cigarettes Smoked Daily: 5 If you are a former smoker, when did you quit?: 1970 Cigars Per Day: 4 Information on smoking cessation initiated: No 'Breaking Loose' booklet given: 01/29/19 Hx Alcohol Use: No Drug/Substance Use Hx: No Substance Use Type: None Hx Substance Use Treatment: No Review of Systems - Review of Systems Comments:: 04/12/19 16:13 GENERAL/CONSTITUTIONAL: No fever or chills. No weakness. HEAD, EYES, EARS, NOSE AND THROAT: No change in vision. No ear pain or discharge. No sore throat. CARDIOVASCULAR: No chest pain or shortness of breath RESPIRATORY: No cough, wheezing, or hemoptysis. GASTROINTESTINAL: No nausea, vomiting, diarrhea or constipation. GENITOURINARY: No dysuria, frequency, or change in urination. MUSCULOSKELETAL: No joint or muscle swelling or pain. No neck or back pain. SKIN: No rash NEUROLOGIC: No headache, vertigo, loss of consciousness, or change in strength/ sensation. ENDOCRINE: No increased thirst. No abnormal weight change HEMATOLOGIC/LYMPHATIC: No anemia, easy bleeding, or history of blood clots. ALLERGIC/IMMUNOLOGIC: No hives or skin allergy. *Physical Exam - Vital Signs Last Vital Signs Temp Pulse Resp BP Pulse Ox 99.6 F 73 18 117/60 95 04/12/19 15:58 04/12/19 15:58 04/12/19 15:58 04/12/19 15:58 04/12/19 15:58 - Physical Exam Comments: 04/12/19 16:14 GENERAL: Awake, alert, and fully oriented, in no acute distress HEAD: No signs of trauma, normocephalic, atraumatic. absent mastoid ttp. EYES: PERRLA, EOMI, sclera anicteric, conjunctiva clear ENT: Auricles normal inspection, hearing grossly normal, nares patent, oropharynx clear without exudates. Moist mucosa NECK: Normal ROM, supple, no lymphadenopathy, JVD, or masses LUNGS: No distress, speaks full sentences, clear to auscultation bilaterally HEART: Regular rate and rhythm, normal S1 and S2, no murmurs, rubs or gallops, peripheral pulses normal and equal bilaterally. ABDOMEN: Soft, nontender, normoactive bowel sounds. No guarding, no rebound. No masses EXTREMITIES : Normal inspection, Normal range of motion, no edema. No clubbing or cyanosis. NEUROLOGICAL: Cranial nerves II through XII grossly intact. Normal speech, normal gait, no focal sensorimotor deficits SKIN: + BL breast with intertrigionous, moiost, homogenous, patchy, erythematous skin. Absent fluctuance, drainage, or discharge. Warm, Dry, normal turgor, no rashes or lesions noted ED Treatment Course - LABORATORY CBC & Chemistry Diagram: 04/12/19 18:36 04/12/19 18:36 Medical Decision Making - Medical Decision Making 04/12/19 16:14 74 yo F with h/o CAD, CHF, HTN, HLD, Multiple Myeloma ( on Velcade, Revlamide ) who p/w BL breast intertrigo. Vitals wnl, AF, A&Ox3. Physical exam Physical exam with + BL breast with intertriginous, moist, homogenous, patchy, erythematous skin. Absent fluctuance, drainage, or discharge. No evidence of breast abscess. Will treat with antifungal and reassess. Ed Course: 04/12/19 16:49 Clotrimazole sent to pharmacy 04/12/19 18:15 CTH: Unremarkable 04/12/19 18:52 CBC,CMP: Pending Patient HDS, endorsed to night team Dr. Kerns. *DC/Admit/Observation/Transfer Diagnosis at time of Disposition: Headache - Discharge Dispostion Disposition: HOME Condition at time of disposition: Good Decision to Admit order: No - Referrals Referrals: Ridge Mukherjee MD [Staff Physician] - Ralph Dang MD [Staff Physician] - Milton Benavides MD [Primary Care Provider] - - Patient Instructions Additional Instructions: Please follow-up with a neurologist for your headaches. You can make an appointment with the doctor we have referred you to, or call your insurance company for a list of doctors. In the meantime, you can take Tylenol (up to 2000 mg daily) for your headaches. We have sent a prescription for your breast rash to your pharmacy. Please take as directed. At your request we are providing a referral to a primary care doctor. Your care is not complete until you are evaluated by primary care and a neurologist. Return to the Emergency Department for any new/worsening/concerning symptoms. - Post Discharge Activity
[2019-04-12] MEDS ORDERED: ACETAMINOPHEN 650 MG/20.3 ML ORAL SOLUTION (CUPS) PO ONE (16:56)
[2019-04-12] MEDS ORDERED: ACETAMINOPHEN 1000 MG/100 ML VIAL (NON FORMULARY) IVPB ONE (17:01)
--- NOTE | 2019-04-12 17:58 | PDOC ---
Documentation entered by Jackie Dailey SCRIBE, acting as scribe for Thang Boyd MD. Thang Boyd MD: This documentation has been prepared by the braedenibe, Jackie Dailey SCRIBE, under my direction and personally reviewed by me in its entirety. I confirm that the documentation accurately reflects all work, treatment, procedures, and medical decision making performed by me. Attending Attestation - Resident Resident Name: Ross Salomon - ED Attending Attestation I have performed the following: I have examined & evaluated the patient, The case was reviewed & discussed with the resident, I agree w/resident's findings & plan, Exceptions are as noted - HPI HPI: 04/12/19 17:13 The patient is a 74-year-old female, with a past medical history of HTN, HLD, OK , CHF, multiple myeloma (on Velcade and Revlamide), who presents to the ED with 3 days of rash under B/L breasts. The patient has tried a topical ointment with no improvement. Denies F/C. Denies rash anywhere else on your body. Pt also endorses mild headache, similar to the one she was seen in the ED for on . Pt endorses global headache, without N/V. No neck pain. No thunderclap. States that this is a chronic headache for her. The patient denies any fevers, chills, nausea, vomiting, diarrhea, or abdominal pain. Denies any chest pain, palpitations, or shortness of breath. Denies any urinary symptoms. Denies any weakness, dizziness, lightheadedness, or changes in strength or sensation. Allergies: Penicillins Oncologist: Dr. Stuart - Physicial Exam PE: 04/12/19 17:20 "GENERAL: Awake, alert, and fully oriented, in no acute distress. HEAD: No signs of trauma EYES: PERRLA, EOMI, sclera anicteric, conjunctiva clear ENT: Auricles normal inspection, hearing grossly normal, nares patent, oropharynx clear without exudates. Moist mucosa NECK: Nontender, no stepoffs, Normal ROM, supple, no lymphadenopathy, JVD, or masses LUNGS: Breath sounds equal, clear to auscultation bilaterally. No wheezes, and no crackles HEART: Regular rate and rhythm, normal S1 and S2, no murmurs, rubs or gallops ABDOMEN: Soft, nontender, normoactive bowel sounds. No guarding, no rebound. No masses EXTREMITIES: Normal range of motion, no edema. No clubbing or cyanosis. No cords, erythema, or tenderness NEUROLOGICAL: Cranial nerves II through XII intact. 5/5 strength and sensation in all extremities, Normal speech, normal gait, normal cerebellar function SKIN: + erythematous rash under L breast with white discharge, consistent with teresa, milder rash under R breast - Medical Decision Making 04/12/19 17:20 74 F with candidal intertrigo of L breast > R breast. Pt with no s/s systemic infection. Pt also complaining of chronic headache. No signs of meningitis/SAH, no neuro deficits to suggest acute intracranial process. - CT head - IV tylenol, reglan - Clotrimazole ointment
[2019-04-12] MEDS ORDERED: SODIUM CHLORIDE 1,000 ML IV STA (18:08)
[2019-04-12] MEDS ORDERED: METOCLOPRAMIDE HCL INJECTION 10 MG/2 ML VIAL IVPUSH ONE (18:08)
[2019-04-12] MEDS ORDERED: METOCLOPRAMIDE HCL INJECTION 10 MG/2 ML VIAL ONE (18:23)
[2019-04-12 18:46] LABS: BASO % 0.2 % (0-2.0); HEMATOCRIT 30.3 % (32.4-45.2); LYMPH % 14.3 % (8-40); MCH 32.1 pg (25.7-33.7); MCHC 32.9 g/dl (32.0-36.0); MEAN CELL VOLUME 97.7 fl (80-96); MEAN PLT VOLUME 10.2 fl (7.5-11.1); MONO % 13.9 % (3.8-10.2); NEUT % 71.6 % (42.8-82.8); PLATELET COUNT 124 K/MM3 (134-434); RBC 3.11 M/mm3 (3.60-5.2); RDW 16.6 % (11.6-15.6); WHITE BLOOD COUNT 4.5 K/mm3 (4.0-10.0)
[2019-04-12 19:14] LABS: ALBUMIN 1.8 g/dl (3.4-5.0); BILIRUBIN,TOTAL 0.6 mg/dL (0.2-1); BLOOD UREA NITROGEN 19.6 mg/dL (7-18); CREATININE 0.8 mg/dL (0.55-1.3); POTASSIUM 3.7 mmol/L (3.5-5.1); TOT PROT 5.8 g/dl (6.4-8.2)
--- NOTE | 2019-04-12 19:28 | PDOC ---
History of Present Illness - General Chief Complaint: Rash Stated Complaint: ALLERGIC REACTION Time Seen by Provider: 04/12/19 16:06 Past History - Past Medical History Allergies/Adverse Reactions: Allergies Allergy/AdvReac Type Severity Reaction Status Date / Time Penicillins Allergy Severe Rash Verified 04/12/19 16:02 Home Medications: Ambulatory Orders Allopurinol [Zyloprim -] 300 mg PO DAILY #30 tablet 11/09/18 Pantoprazole Sodium [Protonix -] 40 mg PO DAILY #30 tablet.ec 11/09/18 Aspirin [ASA -] 81 mg PO DAILY 12/30/18 Clopidogrel Bisulfate [Plavix -] 75 mg PO DAILY #30 tablet 01/07/19 Valacyclovir HCl [Valtrex -] 500 mg PO DAILY #30 tablet 01/07/19 Levothyroxine [Synthroid -] 75 mcg PO DAILY@0700 01/28/19 Potassium Chloride [K-Dur -] 20 meq PO DAILY 01/28/19 Carvedilol [Coreg -] 3.125 mg PO BID #60 tablet 03/28/19 Atorvastatin Ca [Lipitor] 40 mg PO HS 04/09/19 Lenalidomide [Revlimid] 10 mg PO DAILY 04/09/19 Loratadine 10 mg PO DAILY 04/09/19 Nystatin 5 ml PO QID 04/09/19 Torsemide [Demadex] 10 mg PO DAILY 04/09/19 Clotrimazole 14 gm TP ONCE #1 cream..g. 04/12/19 Anemia: Yes Asthma: Yes Cancer: Yes (MULTIPLE MYELOMA) Cardiac Disorders: Yes (CHEST PAIN, SOB,[place], stent) CVA: No COPD: No CHF: Yes Dementia: No Diabetes: Yes GI Disorders: Yes (HIATAL HERNIA REPAIR) Disorders: No HTN: Yes Hypercholesterolemia: Yes Liver Disease: Yes (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) Seizures: No Thyroid Disease: Yes (hypo) - Surgical History Abdominal Surgery: (Yes, HIATAL HERNIA) Appendectomy: No Cardiac Surgery: Yes (stent placement) Cholecystectomy: No Lung Surgery: No Neurologic Surgery: No Orthopedic Surgery: Yes (carpal tunnel ) - Immunization History Immunization Up to Date: Yes - Suicide/Smoking/Psychosocial Hx Smoking History: Unknown if ever smoked Have you smoked in the past 12 months: No Number of Cigarettes Smoked Daily: 5 If you are a former smoker, when did you quit?: 1970 Cigars Per Day: 4 Information on smoking cessation initiated: No 'Breaking Loose' booklet given: 01/29/19 Hx Alcohol Use: No Drug/Substance Use Hx: No Substance Use Type: None Hx Substance Use Treatment: No *Physical Exam - Vital Signs Last Vital Signs Temp Pulse Resp BP Pulse Ox 100.4 F H 80 16 120/65 97 04/12/19 19:24 04/12/19 19:24 04/12/19 19:24 04/12/19 19:24 04/12/19 19:24 ED Treatment Course - LABORATORY CBC & Chemistry Diagram: 04/12/19 18:36 04/12/19 18:36 - ADDITIONAL ORDERS Additional order review: Laboratory Results 04/12/19 18:36 Sodium 143 Potassium 3.7 Chloride 109 H Carbon Dioxide 25 Anion Gap 8 BUN 19.6 H Creatinine 0.8 Est GFR (CKD-EPI)AfAm 83.59 Est GFR (CKD-EPI)NonAf 72.12 Random Glucose 87 Calcium 8.0 L Total Bilirubin 0.6 AST 8 L ALT 12 L Alkaline Phosphatase 46 Total Protein 5.8 L Albumin 1.8 L 04/12/19 18:36 RBC 3.11 L MCV 97.7 H MCHC 32.9 RDW 16.6 H MPV 10.2 Neutrophils % 71.6 D Lymphocytes % 14.3 D Monocytes % 13.9 H Eosinophils % 0.0 Basophils % 0.2 - Medications Given in the ED: ED Medications Discontinued Medications Generic Name Dose Route Start Last Admin Trade Name Munirq PRN Reason Stop Dose Admin Acetaminophen 650 mg 04/12/19 16:56 04/12/19 17:30 Tylenol Oral Solution - PO 04/12/19 16:57 Not Given ONCE ONE Acetaminophen 1,000 mg 04/12/19 17:01 04/12/19 18:11 Ofirmev Injection - IVPB 04/12/19 17:02 1,000 mg ONCE ONE Administration Sodium Chloride 1,000 mls @ 1,000 mls/hr 04/12/19 18:08 04/12/19 18:19 Normal Saline - IV 04/12/19 19:07 1,000 mls/hr ASDIR STA Administration Metoclopramide HCl 10 mg 04/12/19 18:08 04/12/19 18:20 Reglan Injection - IVPUSH 04/12/19 18:09 10 mg ONCE ONE Administration Medical Decision Making - Medical Decision Making 04/12/19 19:28 Patient signed out by Dr. Salomon @ [id number] 74 year old female with Breast CA (on chemotherapy) presents w/breast intertrigo - s/p Clomitrazole and then started c/o headache. As patient evaluated in our ED on 04/09/19 for headache, Head CT ordered to r/o underlying mass/malignancy, bleed and was negative. S/p Tylenol, Reglan, IV fluids. 04/12/19 19:52 Patient reassessed @ bedside and states her headache is still 8/10. Will give OTD Decadron 04/12/19 20:33 Hb stable at 10, Patient symtpomatically improved, as patient has persistent QUINTEROS and given patient 's age, will check UA to r/o 04/12/19 20:47 *DC/Admit/Observation/Transfer Diagnosis at time of Disposition: Headache - Discharge Dispostion Disposition: HOME Condition at time of disposition: Good Decision to Admit order: No - Prescriptions Prescriptions: Clotrimazole 14 gm TP ONCE #1 cream..g. - Referrals Referrals: Milton Benavides MD [Primary Care Provider] - Ridge Mukherjee MD [Staff Physician] - Ralph Dang MD [Staff Physician] - - Patient Instructions Additional Instructions: Please follow-up with a neurologist for your headaches. You can make an appointment with the doctor we have referred you to, or call your insurance company for a list of doctors. In the meantime, you can take Tylenol (up to 2000 mg daily) for your headaches. We have sent a prescription for your breast rash to your pharmacy. Please take as directed. At your request we are providing a referral to a primary care doctor. Your care is not complete until you are evaluated by primary care and a neurologist. Return to the Emergency Department for any new/worsening/concerning symptoms. - Post Discharge Activity
[2019-04-12] MEDS ORDERED: DEXAMETHASONE SOD PHOSPHATE 10 MG/1 ML VIAL IVPUSH ONE (19:29)
[2019-04-12] MEDS ORDERED: DEXAMETHASONE SOD PHOSPHATE 10 MG/1 ML VIAL ONE (19:39)
[2019-04-12] MEDS ORDERED: CLOTRIMAZOLE 1% CREAM 15 GM TUBE TP SCH (22:00)
[2019-04-12 22:48] LABS: EPI CELLS 2.6 /HPF (0-5/HPF); HYALINE CASTS 9 /lpf (0-8); PH,URINE 5.5 (5.0-8.0); URINE APPEARANCE CLEAR; URINE BACTERIA 14.2 /hpf (NEGATIVE); URINE BILIRUBIN NEGATIVE (NEGATIVE); URINE COLOR YELLOW; URINE GLUCOSE (UA) NEGATIVE (NEGATIVE); URINE KETONE NEGATIVE (NEGATIVE); URINE LEUK ESTERASE NEGATIVE (NEGATIVE); URINE NITRITE NEGATIVE (NEGATIVE); URINE PROTEIN 4+ (NEGATIVE); URINE RBC 9 /hpf (0-4); URINE WBC 2 /hpf (0-5)
[2019-04-12] MEDS ORDERED: ACETAMINOPHEN 500 MG TABLET (FP) PO ONE (23:48)
[2019-04-12] MEDS ORDERED: ACETAMINOPHEN 325 MG TABLET (FP) ONE (23:55)
[2019-04-13 00:59] VITALS: BP 105/56; PULSE 76; TEMP 98.1
== END 2019-04-13 00:50 | disposition home or self-care (01) ==
LOC: JER 15:44
PROC: 3E0337Z Introduction of Electrolytic and Water Balance Substance into Peripheral Vein, Percutaneous Approach (ICD-10-PCS; principal; 2019-04-12)
PROC: 3E033GC Introduction of Other Therapeutic Substance into Peripheral Vein, Percutaneous Approach (ICD-10-PCS; 2019-04-12)
PROC: 3E033NZ Introduction of Analgesics, Hypnotics, Sedatives into Peripheral Vein, Percutaneous Approach (ICD-10-PCS; 2019-04-12)
PROC: 3E0333Z Introduction of Anti-inflammatory into Peripheral Vein, Percutaneous Approach (ICD-10-PCS; 2019-04-12)
DX: R51 Headache (principal); L30.4 Erythema intertrigo; B37.2 Candidiasis of skin and nail; I25.10 Atherosclerotic heart disease of native coronary artery without angina pectoris; I11.0 Hypertensive heart disease with heart failure; I50.9 Heart failure, unspecified; Z95.5 Presence of coronary angioplasty implant and graft; E78.00 Pure hypercholesterolemia, unspecified; E03.9 Hypothyroidism, unspecified; E11.9 Type 2 diabetes mellitus without complications; D64.9 Anemia, unspecified; J45.909 Unspecified asthma, uncomplicated; C90.00 Multiple myeloma not having achieved remission
CPT/HCPCS: 36415; 70450-TC; 80053; 81003; 85025; 87086; 96361; 96374; 96375; 99282-25; J0131; J1100; J7030

== ENCOUNTER 2019-04-13 05:49 | Day surgery (SDC) | payer OTHER ==
[2019-04-13] MEDS ORDERED: DEXAMETHASONE 4 MG TABLET (FP) PO ONE (09:00)
[2019-04-13] MEDS ORDERED: ONDANSETRON 8 MG TABLET (FP) PO ONE (09:00)
[2019-04-13] MEDS ORDERED: BORTEZOMIB (VELCADE) 2.5 MG/ML SUB-Q INJECTION SQ ONE (09:15)
[2019-04-13 10:47] LABS: BASO % 0.1 % (0-2.0); HEMOGLOBIN 9.9 GM/dL (10.7-15.3); LYMPH % 11.9 % (8-40); MEAN PLT VOLUME 10.3 fl (7.5-11.1); MONO % 8.2 % (3.8-10.2); NEUT % 79.8 % (42.8-82.8); PLATELET COUNT 135 K/MM3 (134-434); RBC 3.09 M/mm3 (3.60-5.2); RDW 16.8 % (11.6-15.6); WHITE BLOOD COUNT 5.2 K/mm3 (4.0-10.0)
[2019-04-13 11:09] LABS: ALBUMIN 1.9 g/dl (3.4-5.0); BILIRUBIN,TOTAL 0.5 mg/dL (0.2-1); BLOOD UREA NITROGEN 25.8 mg/dL (7-18); CALCIUM 7.9 mg/dL (8.5-10.1); CREATININE 1.1 mg/dL (0.55-1.3); POTASSIUM 3.9 mmol/L (3.5-5.1); TOT PROT 6.5 g/dl (6.4-8.2)
[2019-04-13 11:54] LABS: URIC ACID 3.9 mg/dL (2.6-7.2)
== END 2019-04-13 09:30 | disposition home or self-care (01) ==
LOC: JONCCHEMO 05:49
PROVIDERS: ATTEND Internal Medicine Hematology & Oncology
DX: Z53.8 Procedure and treatment not carried out for other reasons (principal)
CPT/HCPCS: 36415; 80053; 83615; 83735; 84550; 85025

== ENCOUNTER 2019-04-13 09:39 | Inpatient (IN) | payer OTHER ==
[2019-04-13 10:10] VITALS: BMI 22.8
[2019-04-13] MEDS ORDERED: SODIUM CHLORIDE 1,000 ML IV STA (10:41)
--- NOTE | 2019-04-13 10:42 | PDOC ---
Documentation entered by Jackie Dailey SCRIBE, acting as scribe for Thang Boyd MD. Thang Boyd MD: This documentation has been prepared by the braedenibAsim alan Natalie, SCRIBE, under my direction and personally reviewed by me in its entirety. I confirm that the documentation accurately reflects all work, treatment, procedures, and medical decision making performed by me. History of Present Illness - General Stated Complaint: Syncope/Near Syncope History Source: Patient Exam Limitations: No Limitations - History of Present Illness Initial Comments: 04/13/19 10:09 The patient is a 74-year-old female, with a past medical history of HTN, HLD, OK , CHF, multiple myeloma (on Velcade and Revlamide), who presents to the ED s/p 2 syncopal episodes today. The patient was having blood drawn during a routine visit with her oncologist when she suddenly became dizzy and lightheaded and subsequently lost consciousness. Patient was seated when she lost consciousness. Denies any head trauma. Rapid response was called and upon arrival of the ED team, the patient was witnessed to have another syncopal episode. Patient does not recall the incident. She denies ever having CP/SOB/ palpitations. Denies F/C. Had one episode of diarrhea this morning, no vomiting. Denies abdominal pain. Allergies: Penicillins PCP: Dr. Milton Benavides Past History - Past Medical History Allergies/Adverse Reactions: Allergies Allergy/AdvReac Type Severity Reaction Status Date / Time Penicillins Allergy Severe Rash Verified 04/13/19 09:58 Home Medications: Ambulatory Orders Allopurinol [Zyloprim -] 300 mg PO DAILY #30 tablet 11/09/18 Pantoprazole Sodium [Protonix -] 40 mg PO DAILY #30 tablet.ec 11/09/18 Aspirin [ASA -] 81 mg PO DAILY 12/30/18 Clopidogrel Bisulfate [Plavix -] 75 mg PO DAILY #30 tablet 01/07/19 Valacyclovir HCl [Valtrex -] 500 mg PO DAILY #30 tablet 01/07/19 Levothyroxine [Synthroid -] 75 mcg PO DAILY@0700 01/28/19 Potassium Chloride [K-Dur -] 10 meq PO DAILY 01/28/19 Carvedilol [Coreg -] 3.125 mg PO BID #60 tablet 03/28/19 Atorvastatin Ca [Lipitor] 40 mg PO HS 04/09/19 Loratadine 10 mg PO DAILY 04/09/19 Torsemide [Demadex] 10 mg PO DAILY 04/09/19 Anemia: Yes Asthma: Yes Cancer: Yes (MULTIPLE MYELOMA) Cardiac Disorders: Yes (CHEST PAIN, SOB,[place], stent) CVA: No COPD: No CHF: Yes Dementia: No Diabetes: Yes GI Disorders: Yes (HIATAL HERNIA REPAIR) Disorders: No HTN: Yes Hypercholesterolemia: Yes Liver Disease: Yes (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) Seizures: No Thyroid Disease: Yes (hypo) - Surgical History Abdominal Surgery: (Yes, HIATAL HERNIA) Appendectomy: No Cardiac Surgery: Yes (stent placement) Cholecystectomy: No Lung Surgery: No Neurologic Surgery: No Orthopedic Surgery: Yes (carpal tunnel ) - Immunization History Immunization Up to Date: Yes - Suicide/Smoking/Psychosocial Hx Smoking History: Unknown if ever smoked Have you smoked in the past 12 months: No Number of Cigarettes Smoked Daily: 5 If you are a former smoker, when did you quit?: 1970 Cigars Per Day: 4 'Breaking Loose' booklet given: 01/29/19 Hx Alcohol Use: No Drug/Substance Use Hx: No Substance Use Type: None Hx Substance Use Treatment: No Review of Systems - Review of Systems Able to Perform ROS?: Yes Comments:: 04/13/19 10:25 GENERAL/CONSTITUTIONAL: No fever or chills. No weakness. HEAD, EYES, EARS, NOSE AND THROAT: No change in vision. No ear pain or discharge. No sore throat. CARDIOVASCULAR: + syncope, + lightheadedness, No chest pain, no shortness of breath RESPIRATORY: No cough, wheezing, or hemoptysis. GASTROINTESTINAL: + diarrhea, No nausea, vomiting, or constipation. GENITOURINARY: No dysuria, frequency, or change in urination. MUSCULOSKELETAL: No joint or muscle swelling or pain. No neck or back pain. SKIN: No rash NEUROLOGIC: No vertigo, no change in strength/sensation. ENDOCRINE: No increased thirst. No abnormal weight change. HEMATOLOGIC/LYMPHATIC: No anemia, easy bleeding, or history of blood clots. ALLERGIC/IMMUNOLOGIC: No hives or skin allergy *Physical Exam - Vital Signs Last Vital Signs Temp Pulse Resp BP Pulse Ox 98.7 F 71 18 121/57 L 100 04/13/19 09:52 04/13/19 10:12 04/13/19 09:52 04/13/19 09:52 04/13/19 10:12 - Physical Exam Comments: 04/13/19 10:32 GENERAL: Awake, alert, and fully oriented, in no acute distress. HEAD: No signs of trauma EYES: PERRLA, EOMI, sclera anicteric, conjunctiva clear ENT: Auricles normal inspection, hearing grossly normal, nares patent, oropharynx clear without exudates. Moist mucosa NECK: Nontender, no stepoffs, Normal ROM, supple, no lymphadenopathy, JVD, or masses LUNGS: Breath sounds equal, clear to auscultation bilaterally. No wheezes, and no crackles HEART: Regular rate and rhythm, normal S1 and S2, no murmurs, rubs or gallops ABDOMEN: Soft, nontender, normoactive bowel sounds. No guarding, no rebound. No masses EXTREMITIES: Normal range of motion, no edema. No clubbing or cyanosis. No cords, erythema, or tenderness NEUROLOGICAL: Cranial nerves II through XII intact. 5/5 strength and sensation in all extremities, Normal speech, normal cerebellar function SKIN: Warm, Dry, normal turgor, no rashes or lesions noted. Heart Score/ECG Review - ECG Impressions Comment:: 04/13/19 10:39 NSR, no SABA/STDs, TWI in lateral and inferior leads (seen on prior), left axis deviation, intervals wnl, rate78 ED Treatment Course - LABORATORY CBC & Chemistry Diagram: 04/13/19 11:20 - ADDITIONAL ORDERS Additional order review: Laboratory Results 04/13/19 09:42 POC Glucometer 127 04/13/19 09:42 POC Glucometer 127 - RADIOLOGY Radiology Studies Ordered: Category Date Time Status CHEST X-RAY PORTABLE* [RAD] Stat Radiology 04/13/19 09:42 Completed Medical Decision Making - Medical Decision Making 04/13/19 10:40 74 F with syncope x 2 today. Possibly due to dehydration 2/2 diarrhea this morning. EKG without evidence of arrhythmia. Pt without head trauma or other signs of traumatic injury. No fever to suggest sepsis. - Labs, trop - CXR, UA - IVF - Admit tele 04/13/19 12:27 Labs wnl, trop negative Pt admitted to Dr. uPckett *DC/Admit/Observation/Transfer Diagnosis at time of Disposition: Syncope - Discharge Dispostion Decision to Admit order: Yes - Referrals Referrals: Milton Benavides MD [Primary Care Provider] - - Patient Instructions - Post Discharge Activity - Attestations Physician Attestion: 04/13/19 12:27 I, Dr. Thang Boyd MD, attest that this document has been prepared under my direction and personally reviewed by me in its entirety. I further attest, that it accurately reflects all work, treatment, procedures and medical decision -making performed by me.
--- NOTE | 2019-04-13 11:19 | RAPID ---
Physical Examination Vital Signs: Vital Signs Temperature 98.7 F 04/13/19 09:52 Pulse Rate 73 04/13/19 10:37 Respiratory Rate 23 H 04/13/19 10:37 Blood Pressure 91/59 L 04/13/19 10:37 O2 Sat by Pulse Oximetry (%) 100 04/13/19 10:37 Rapid Response - Rapid Response Assessment: Rapid response called to the diagnostic suite. Pt found to be hypotensive with manual BP taken, systolic in the 50s with complaints of dizziness. Upon exam, pt was awake and alert, answering questions, but mildly lethargic. Pt about receive treatment when she started experiencing dizziness. ED team present at time of encounter and transported pt to ED via stretcher for further evaluation.
[2019-04-13 11:59] LABS: BILIRUBIN,TOTAL 0.4 mg/dL (0.2-1); BLOOD UREA NITROGEN 25.8 mg/dL (7-18); CALCIUM 7.9 mg/dL (8.5-10.1); CREATININE 1.1 mg/dL (0.55-1.3); POTASSIUM 3.9 mmol/L (3.5-5.1); TOT PROT 6.5 g/dl (6.4-8.2)
--- NOTE | 2019-04-13 13:23 | CON.CARD ---
Consult Consult Specialty:: Cardiology Reason for Consultation:: syncope - History of Present Illness History of Present Illness: The patient is a 74-year-old female, with a past medical history of HTN, HLD, [place] , CHF, multiple myeloma (on Velcade and Revlamide), who presents to the ED s/p 2 syncopal episodes today. The patient was having blood drawn during a routine visit with her oncologist when she suddenly became dizzy and lightheaded and subsequently lost consciousness. Patient was seated when she lost consciousness. Denies any head trauma. Rapid response was called and upon arrival of the ED team, the patient was witnessed to have another syncopal episode. Patient does not recall the incident. She denies ever having CP/SOB/ palpitations. Denies F/C. Had one episode of diarrhea this morning, no vomiting. Denies abdominal pain. PMH h/o CAD (NSTEMI; s/p HOLLY D1), Chronic systolic CHF, mildly reduced LV function with EF 45%, HTN, Hyperlipidemia,depression, Asthma, hiatal hernia, rectal polyp , Renal Insufficiency, proteinuria, Multiple Myeloma on velcade/decadron, revlamide, anemia, ?gout, and Hypothyroidism, - History Source History Provided By: Patient, Medical Record Limitations to Obtaining History: No Limitations - Past Medical History Cardio/Vascular: Yes: CAD (s/p HOLLY D1 this month after NSTEMI), CHF (Chronic systolic CHF, mildly reduced LV function with EF 45%), HTN, Hyperlipdemia Pulmonary: Yes: Asthma Gastrointestinal: Yes: Other (hiatal hernia; rectal polyp) Renal/: Yes: Renal Inusuff, Other (proteinuria) Psych: Yes: Depression Endocrine: Yes: Hypothyroidism - Past Surgical History Past Surgical History: Yes: Breast Biopsy (right for cysts), Hernia Repair ( laparoscopic hiatal), Hysterectomy, Tubal Ligation - Alcohol/Substance Use Hx Alcohol Use: No History of Substance Use: reports: None - Smoking History Smoking history: Unknown if ever smoked Have you smoked in the past 12 months: No Aproximately how many cigarettes per day: 5 If you are a former smoker, when did you quit?: 1969 - Social History ADL: Independent History of Recent Travel: No Home Medications - Allergies Allergies/Adverse Reactions: Allergies Allergy/AdvReac Type Severity Reaction Status Date / Time Penicillins Allergy Severe Rash Verified 04/13/19 09:58 - Home Medications Home Medications: Ambulatory Orders Allopurinol [Zyloprim -] 300 mg PO DAILY #30 tablet 11/09/18 Pantoprazole Sodium [Protonix -] 40 mg PO DAILY #30 tablet.ec 11/09/18 Aspirin [ASA -] 81 mg PO DAILY 12/30/18 Clopidogrel Bisulfate [Plavix -] 75 mg PO DAILY #30 tablet 01/07/19 Valacyclovir HCl [Valtrex -] 500 mg PO DAILY #30 tablet 01/07/19 Levothyroxine [Synthroid -] 75 mcg PO DAILY@0700 01/28/19 Potassium Chloride [K-Dur -] 10 meq PO DAILY 01/28/19 Carvedilol [Coreg -] 3.125 mg PO BID #60 tablet 03/28/19 Atorvastatin Ca [Lipitor] 40 mg PO HS 04/09/19 Loratadine 10 mg PO DAILY 04/09/19 Torsemide [Demadex] 10 mg PO DAILY 04/09/19 Family Disease History - Family Disease History Family Disease History: [place]: Daughter (1 passed at 14yo of Hodgkin's lymphoma; 1 passed at 48 of lupus), Other: Daughter Review of Systems - Review of Systems Constitutional: reports: No Symptoms Eyes: reports: No Symptoms HENT: reports: No Symptoms Neck: reports: No Symptoms Cardiovascular: reports: No Symptoms Respiratory: reports: No Symptoms Gastrointestinal: reports: No Symptoms Genitourinary: reports: No Symptoms Breasts: reports: No Symptoms Reported Musculoskeletal: reports: No Symptoms Integumentary: reports: No Symptoms Neurological: reports: Syncope Endocrine: reports: No Symptoms Hematology/Lymphatic: reports: No Symptoms Psychiatric: reports: No Symptoms Vital Signs: Vital Signs Temperature 98.7 F 04/13/19 09:52 Pulse Rate 77 04/13/19 13:00 Respiratory Rate 17 04/13/19 13:00 Blood Pressure 114/61 04/13/19 13:00 O2 Sat by Pulse Oximetry (%) 98 04/13/19 13:00 Constitutional: Yes: Well Nourished, No Distress, Calm Eyes: Yes: WNL, Conjunctiva Clear, EOM Intact HENT: Yes: WNL, Atraumatic, Normocephalic Neck: Yes: WNL, Supple, Trachea Midline Respiratory: Yes: WNL, Regular, CTA Bilaterally Gastrointestinal: Yes: WNL, Normal Bowel Sounds Renal/: Yes: WNL Cardiovascular: Yes: WNL, Regular Rate and Rhythm Heart Sounds: Yes: S1, S2 Musculoskeletal: Yes: WNL Extremities: Yes: WNL Integumentary: Yes: WNL Neurological: Yes: WNL, Alert, Oriented ...Motor Strength: WNL Psychiatric: Yes: WNL, Alert, Oriented - Other Data Labs, Other Data: CBC, BMP 04/13/19 11:20 Troponin, BNP 04/13/19 11:20 Troponin I 0.03 Troponin, BNP 04/13/19 11:20 Troponin I 0.03 Imaging - Results Chest X-ray: Image Reviewed (no i/e) EKG: Image Reviewed (sr lvh ? old septal [place]) Problem List - Problems (1) Syncope Code(s): R55 - SYNCOPE AND COLLAPSE (2) CINTIA positive Code(s): R76.8 - OTHER SPECIFIED ABNORMAL IMMUNOLOGICAL FINDINGS IN SERUM (3) ASHD (arteriosclerotic heart disease) Code(s): I25.10 - ATHSCL HEART DISEASE OF [place] CORONARY ARTERY W/O ANG PCTRS (4) Abnormal ECG Code(s): R94.31 - ABNORMAL ELECTROCARDIOGRAM [ECG] [EKG] (5) Acute exacerbation of CHF (congestive heart failure) Code(s): I50.9 - HEART FAILURE, UNSPECIFIED (6) Acute on chronic renal failure Code(s): N17.9 - ACUTE KIDNEY FAILURE, UNSPECIFIED; N18.9 - CHRONIC KIDNEY DISEASE, UNSPECIFIED Qualifiers: Chronic kidney disease stage: stage 2 (mild) (7) Acute on chronic systolic CHF (congestive heart failure) Code(s): I50.23 - ACUTE ON CHRONIC SYSTOLIC (CONGESTIVE) HEART FAILURE (8) Acute respiratory failure Code(s): J96.00 - ACUTE RESPIRATORY FAILURE, UNSP W HYPOXIA OR HYPERCAPNIA (9) Adult onset hypothyroidism Code(s): E03.8 - OTHER SPECIFIED HYPOTHYROIDISM (10) Anemia Code(s): D64.9 - ANEMIA, UNSPECIFIED (11) Anemia Code(s): D64.9 - ANEMIA, UNSPECIFIED Qualifiers: Chronic kidney disease stage: unspecified stage (12) Anemia Code(s): D64.9 - ANEMIA, UNSPECIFIED Qualifiers: Anemia type: unspecified type Qualified Code(s): D64.9 - Anemia, unspecified (13) Anemia Code(s): D64.9 - ANEMIA, UNSPECIFIED Qualifiers: Chronic kidney disease stage: unspecified stage (14) Anxiety Code(s): F41.9 - ANXIETY DISORDER, UNSPECIFIED (15) Asymptomatic bacteriuria Code(s): R82.71 - BACTERIURIA (16) CAD (coronary artery disease) Code(s): I25.10 - ATHSCL HEART DISEASE OF [place] CORONARY ARTERY W/O ANG PCTRS Qualifiers: (17) CHF (congestive heart failure) Code(s): I50.9 - HEART FAILURE, UNSPECIFIED Qualifiers: Heart failure type: systolic Heart failure chronicity: unspecified Qualified Code(s): I50.20 - Unspecified systolic (congestive) heart failure (18) CKD (chronic kidney disease) Code(s): N18.9 - CHRONIC KIDNEY DISEASE, UNSPECIFIED (19) Chest pain Code(s): R07.9 - CHEST PAIN, UNSPECIFIED Qualifiers: Chest pain type: unspecified Qualified Code(s): R07.9 - Chest pain, unspecified (20) Cough Code(s): R05 - COUGH (21) Dehydration Code(s): E86.0 - DEHYDRATION (22) Diarrhea Code(s): R19.7 - DIARRHEA, UNSPECIFIED Qualifiers: Diarrhea type: unspecified type Qualified Code(s): R19.7 - Diarrhea, unspecified (23) Diarrhea Code(s): R19.7 - DIARRHEA, UNSPECIFIED Qualifiers: Diarrhea type: unspecified type Qualified Code(s): R19.7 - Diarrhea, unspecified (24) Dizziness Code(s): R42 - DIZZINESS AND GIDDINESS (25) Elevated troponin Code(s): R74.8 - ABNORMAL LEVELS OF OTHER SERUM ENZYMES (26) Elevated troponin Code(s): R74.8 - ABNORMAL LEVELS OF OTHER SERUM ENZYMES (27) Elevated troponin I level Code(s): R74.8 - ABNORMAL LEVELS OF OTHER SERUM ENZYMES (28) Facial swelling Code(s): R22.0 - LOCALIZED SWELLING, MASS AND LUMP, HEAD (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 - HEREDITARY DEFICIENCY OF OTHER CLOTTING FACTORS (30) Fever Code(s): R50.9 - FEVER, UNSPECIFIED (31) Gastric wall thickening Code(s): K31.89 - OTHER DISEASES OF STOMACH AND DUODENUM (32) HLD (hyperlipidemia) Code(s): E78.5 - HYPERLIPIDEMIA, UNSPECIFIED Qualifiers: Hyperlipidemia type: unspecified Qualified Code(s): E78.5 - Hyperlipidemia , unspecified (33) HTN (hypertension) Code(s): I10 - ESSENTIAL (PRIMARY) HYPERTENSION Qualifiers: Hypertension type: unspecified Qualified Code(s): I10 - Essential (primary ) hypertension (34) Headache Code(s): R51 - HEADACHE (35) History of heart artery stent Code(s): Z95.5 - PRESENCE OF CORONARY ANGIOPLASTY IMPLANT AND GRAFT (36) Hypoalbuminemia Code(s): E88.09 - OTH DISORDERS OF PLASMA-PROTEIN METABOLISM, NEC (37) Hypotension Code(s): I95.9 - HYPOTENSION, UNSPECIFIED Qualifiers: Hypotension type: other hypotension type Qualified Code(s): I95.89 - Other hypotension (38) Hypothyroidism Code(s): E03.9 - HYPOTHYROIDISM, UNSPECIFIED Qualifiers: Hypothyroidism type: acquired Qualified Code(s): E03.9 - Hypothyroidism, unspecified (39) Hypothyroidism Code(s): E03.9 - HYPOTHYROIDISM, UNSPECIFIED (40) Lichen amyloidosus Code(s): E85.4 - ORGAN-LIMITED AMYLOIDOSIS; L99 - OTH DISORDERS OF SKIN, SUBCU IN DISEASES CLASSD ELSWHR (41) Loss of appetite Code(s): R63.0 - ANOREXIA (42) Multiple myeloma Code(s): C90.00 - MULTIPLE MYELOMA NOT HAVING ACHIEVED REMISSION Qualifiers: Multiple myeloma remission status: not in remission Qualified Code(s): C90.00 - Multiple myeloma not having achieved remission (43) Multiple myeloma Code(s): C90.00 - MULTIPLE MYELOMA NOT HAVING ACHIEVED REMISSION Qualifiers: Multiple myeloma remission status: not in remission Qualified Code(s): C90.00 - Multiple myeloma not having achieved remission (44) Multiple myeloma Code(s): C90.00 - MULTIPLE MYELOMA NOT HAVING ACHIEVED REMISSION (45) Multiple myeloma Code(s): C90.00 - MULTIPLE MYELOMA NOT HAVING ACHIEVED REMISSION (46) Otitis Code(s): H66.90 - OTITIS MEDIA, UNSPECIFIED, UNSPECIFIED EAR (47) Otitis externa Code(s): H60.90 - UNSPECIFIED OTITIS EXTERNA, UNSPECIFIED EAR Qualifiers: Otitis externa type: unspecified type Chronicity: acute Laterality: right Qualified Code(s): H60.501 - Unspecified acute noninfective otitis externa, right ear (48) Otitis media with rupture of tympanic membrane Code(s): H66.90 - OTITIS MEDIA, UNSPECIFIED, UNSPECIFIED EAR; H72.90 - UNSP PERFORATION OF TYMPANIC MEMBRANE, UNSPECIFIED EAR Qualifiers: Laterality: right Qualified Code(s): H66.91 - Otitis media, unspecified, right ear; H72.91 - Unspecified perforation of tympanic membrane, right ear (49) PAF (paroxysmal atrial fibrillation) Code(s): I48.0 - PAROXYSMAL ATRIAL FIBRILLATION (50) PHT (pulmonary hypertension) Code(s): I27.20 - PULMONARY HYPERTENSION, UNSPECIFIED (51) Penicillin allergy Code(s): Z88.0 - ALLERGY STATUS TO PENICILLIN (52) Pressure ulcer of sacral region, stage 1 Code(s): L89.151 - PRESSURE ULCER OF SACRAL REGION, STAGE 1 (53) Proteinuria Code(s): R80.9 - PROTEINURIA, UNSPECIFIED Qualifiers: Proteinuria type: persistent Qualified Code(s): R80.1 - Persistent proteinuria, unspecified (54) Rectal bleed Code(s): K62.5 - HEMORRHAGE OF ANUS AND RECTUM (55) Rectal pain Code(s): K62.89 - OTHER SPECIFIED DISEASES OF ANUS AND RECTUM (56) Renal dysfunction Code(s): N28.9 - DISORDER OF KIDNEY AND URETER, UNSPECIFIED (57) Respiratory insufficiency Code(s): R06.89 - OTHER ABNORMALITIES OF BREATHING (58) Troponin I above reference range Code(s): R74.8 - ABNORMAL LEVELS OF OTHER SERUM ENZYMES (59) Vomiting Code(s): R11.10 - VOMITING, UNSPECIFIED Qualifiers: Vomiting type: unspecified Vomiting Intractability: unspecified Nausea presence: unspecified Qualified Code(s): R11.10 - Vomiting, unspecified (60) Weakness Code(s): R53.1 - WEAKNESS (61) Weight loss Code(s): R63.4 - ABNORMAL WEIGHT LOSS Assessment/Plan syncope during steroid infussion for MM hypotension h/o CAD (NSTEMI; s/p HOLLY D1), Chronic systolic CHF, mildly reduced LV function with EF 45%, HTN, Hyperlipidemia,depression, Asthma, hiatal hernia, rectal polyp , Renal Insufficiency, proteinuria, Multiple Myeloma on velcade/decadron, revlamide, anemia, ?gout, and Hypothyroidism, Plan ekg echo IVF BP stable now will f/u
--- NOTE | 2019-04-13 15:27 | EKG ---
Test Reason : Blood Pressure : / mmHG Vent. Rate : 078 BPM Atrial Rate : 078 BPM P-R Int : 152 ms QRS Dur : 106 ms QT Int : 394 ms P-R-T Axes : 053 -11 225 degrees QTc Int : 449 ms NORMAL SINUS RHYTHM POSSIBLE LEFT ATRIAL ENLARGEMENT LEFT VENTRICULAR HYPERTROPHY WITH REPOLARIZATION ABNORMALITY CANNOT RULE OUT SEPTAL INFARCT , AGE UNDETERMINED ABNORMAL ECG WHEN COMPARED WITH ECG OF 09-APR-2019 11:46, PREMATURE ATRIAL COMPLEXES ARE NO LONGER PRESENT Confirmed by MELISSA WHITE MD ([id number]) on 04/13/2019 3:27:24 PM Referred By: Confirmed By:MELISSA WHITE MD
--- NOTE | 2019-04-13 16:18 | ECHO ---
Name: SHERRY SIMPSON Exam:Adult Echocardiogram Study Date: 04/13/2019 03:12 PM Age: 74 yrs Reason For Study: ef Height: 64 in Weight: 133 lb BSA: 1.6 m2 MMode/2D Measurements & Calculations IVSd: 1.1 cm Ao root diam: 2.7 cm LVIDd: 5.6 cm LVIDs: 3.7 cm LVPWd: 0.91 cm LVPWs: 1.6 cm EDV(Teich): 151.7 ml ESV(Teich): 57.4 ml LVOT diam: 1.9 cm RV S Carlos: 10.9 cm/sec Doppler Measurements & Calculations MV E max carlos: 96.0 cm/sec Ao V2 max: 163.7 cm/sec MV A max carlos: 117.9 cm/sec Ao max P.8 mmHg MV E/A: 0.81 Ao V2 mean: 114.7 cm/sec MV dec time: 0.22 sec Ao mean P.3 mmHg Ao V2 VTI: 34.0 cm BRYAN(I,D): 2.0 cm2 AI P1/2t: 421.4 msec BRYAN(V,D): 2.2 cm2 AI max carlos: 399.3 cm/sec LV V1 max P.6 mmHg AI max P.8 mmHg LV V1 mean P.6 mmHg AI dec slope: 277.5 cm/sec2 LV V1 max: 127.2 cm/sec LV V1 mean: 71.4 cm/sec LV V1 VTI: 23.0 cm MR max carlos: 430.6 cm/sec SV(LVOT): 66.3 ml MR max P.2 mmHg PA V2 max: 126.2 cm/sec Med Peak E' Carlos: 4.6 cm/sec PA max P.4 mmHg Med E/e': 21.0 Lat Peak E' Carlos: 6.7 cm/sec Lat E/e': 14.2 Procedure A two-dimensional transthoracic echocardiogram with color flow and Doppler was performed. Left Ventricle The left ventricular size, thickness and function are normal. The left ventricular ejection fraction is normal. E/A reversal consistent with but not diagnostic of poor LV compliance. The left ventricular w all motion is normal. Right Ventricle The right ventricle is normal in size and function. Atria Normal left and right atrial size and function. Mitral Valve There is mild mitral valve thickening. There is no mitral valve stenosis. There is mild mitral regurg itation. Tricuspid Valve There is mild tricuspid valve thickening. There is no tricuspid stenosis. There was insufficient TR d etected to calculate RV systolic pressure. Aortic Valve The aortic valve is not well visualized. No hemodynamically significant valvular aortic stenosis. No aortic regurgitation is present. Pulmonic Valve The pulmonic valve is not well visualized. There is no pulmonic valvular stenosis. Mild pulmonic valv ular regurgitation. Great Vessels The aortic root is normal size. Pericardium/Pleura There is no pericardial effusion. Interpretation Summary The left ventricular size, thickness and function are normal The left ventricular ejection fraction is normal. The left ventricular wall motion is normal. There was insufficient TR detected to calculate RV systolic pressure. There is mild mitral regurgitation. E/A reversal consistent with but not diagnostic of poor LV compliance MD Michael Bingham 04/13/2019 04:17 PM
[2019-04-13] MEDS ORDERED: LOPERAMIDE HCL 2 MG CAPSULE PO ONE (17:45)
[2019-04-13] MEDS ORDERED: LOPERAMIDE HCL 2 MG CAPSULE ONE (17:54)
[2019-04-13] MEDS ORDERED: CARVEDILOL 3.125 MG TABLET (FP) PO SCH (22:00)
--- NOTE | 2019-04-13 22:47 | HP ---
Admitting History and Physical - Past Medical History Cardiovascular: Yes: CAD (s/p HOLLY D1 this month after NSTEMI), CHF (Chronic systolic CHF, mildly reduced LV function with EF 45%), HTN, Hyperlipdemia Pulmonary: Yes: Asthma Gastrointestinal: Yes: Other (hiatal hernia; rectal polyp) Renal/: Yes: Renal Inusuff, Other (proteinuria) Heme/Onc: Yes: Anemia Psych: Yes: Depression Endocrine: Yes: Hypothyroidism - Past Surgical History Past Surgical History: Yes: Breast Biopsy (right for cysts), Hernia Repair ( laparoscopic hiatal), Hysterectomy, Tubal Ligation - Smoking History Smoking history: Unknown if ever smoked Have you smoked in the past 12 months: No Aproximately how many cigarettes per day: 5 If you are a former smoker, when did you quit?: 1969 - Alcohol/Substance Use Hx Alcohol Use: No History of Substance Use: reports: None - Social History ADL: Independent History of Recent Travel: No Home Medications - Allergies Allergies/Adverse Reactions: Allergies Allergy/AdvReac Type Severity Reaction Status Date / Time Penicillins Allergy Severe Rash Verified 04/13/19 09:58 - Home Medications Home Medications: Ambulatory Orders Allopurinol [Zyloprim -] 300 mg PO DAILY #30 tablet 11/09/18 Pantoprazole Sodium [Protonix -] 40 mg PO DAILY #30 tablet.ec 11/09/18 Aspirin [ASA -] 81 mg PO DAILY 12/30/18 Clopidogrel Bisulfate [Plavix -] 75 mg PO DAILY #30 tablet 01/07/19 Valacyclovir HCl [Valtrex -] 500 mg PO DAILY #30 tablet 01/07/19 Levothyroxine [Synthroid -] 75 mcg PO DAILY@0700 01/28/19 Potassium Chloride [K-Dur -] 10 meq PO DAILY 01/28/19 Carvedilol [Coreg -] 3.125 mg PO BID #60 tablet 03/28/19 Atorvastatin Ca [Lipitor] 40 mg PO HS 04/09/19 Loratadine 10 mg PO DAILY 04/09/19 Torsemide [Demadex] 10 mg PO DAILY 04/09/19 Family Disease History - Family Disease History Family Disease History: [place]: Daughter (1 passed at 14yo of Hodgkin's lymphoma; 1 passed at 48 of lupus), Other: Daughter Physical Examination Vital Signs: Vital Signs Temperature 98.9 F 04/13/19 19:22 Pulse Rate 78 04/13/19 19:22 Respiratory Rate 18 04/13/19 19:22 Blood Pressure 106/50 L 04/13/19 19:22 O2 Sat by Pulse Oximetry (%) 98 04/13/19 19:22 Labs: CBC, BMP 04/13/19 11:20
[2019-04-13] MEDS: DEXTROSE 5%-0.45% SALINE 1,000 ML IV SCH (22:55)
[2019-04-13] MEDS: HEPARIN NA (PORCINE) 5,000 UNITS/ML 1ML VIAL SQ SCH (22:55)
[2019-04-13] MEDS: CLOTRIMAZOLE 1% CREAM 15 GM TUBE TP SCH (22:56)
[2019-04-13] MEDS: ATORVASTATIN CA 20 MG TABLET (FP) PO SCH (22:56)
[2019-04-14] MEDS: LEVOTHYROXINE NA 75 MCG TABLET (FP) PO SCH (06:22)
[2019-04-14 07:40] LABS: ALBUMIN 1.8 g/dl (3.4-5.0); BILIRUBIN,TOTAL 0.4 mg/dL (0.2-1); BLOOD UREA NITROGEN 22.2 mg/dL (7-18); CALCIUM 7.3 mg/dL (8.5-10.1); CREATININE 0.8 mg/dL (0.55-1.3); POTASSIUM 3.3 mmol/L (3.5-5.1)
[2019-04-14 08:52] LABS: BASO % 0.3 % (0-2.0); HEMATOCRIT 29.1 % (32.4-45.2); HEMOGLOBIN 9.7 GM/dL (10.7-15.3); LYMPH % 24.8 % (8-40); MCH 32.6 pg (25.7-33.7); MCHC 33.5 g/dl (32.0-36.0); MEAN CELL VOLUME 97.2 fl (80-96); MEAN PLT VOLUME 11.1 fl (7.5-11.1); MONO % 15.8 % (3.8-10.2); NEUT % 59.1 % (42.8-82.8); RBC 2.99 M/mm3 (3.60-5.2); RDW 17.2 % (11.6-15.6); WHITE BLOOD COUNT 4.2 K/mm3 (4.0-10.0)
--- NOTE | 2019-04-14 09:06 | PN ---
Progress Note, Physician Chief Complaint: Pt A&Ox3; no dizziness on standijng (tahes herself).Pt is depressed about her health. History of Present Illness: The patient is a 74-year-old black female, with a past medical history of HTN, HLD, [place], diastolic CHF, multiple myeloma (on Velcade and Revlamide), severe depression (was on Paxil), who presents to the ED s/p 2 syncopal episodes today. The patient was having blood drawn during a routine visit with her oncologist when she suddenly became dizzy and lightheaded and subsequently lost consciousness. Patient was seated when she lost consciousness. Denies any head trauma. Rapid response was called and upon arrival of the ED team, the patient was witnessed to have another syncopal episode. Patient does not recall the incident. She denies ever having CP/SOB/palpitations. Denies F/C. Had one episode of diarrhea this morning, no vomiting. Denies abdominal pain. - Current Medication List Current Medications: Active Medications Allopurinol (Zyloprim -) 300 mg PO DAILY [facility] Aspirin (Asa -) 81 mg PO DAILY [facility] Atorvastatin Calcium (Lipitor -) 40 mg PO HS [facility] Last Admin: 04/13/19 22:56 Dose: 40 mg Clopidogrel Bisulfate (Plavix -) 75 mg PO DAILY [facility] Clotrimazole (Lotrimin 1% Cream -) 1 applic TP BID [facility] Last Admin: 04/13/19 22:56 Dose: 1 applic Heparin Sodium (Porcine) (Heparin -) 5,000 unit SQ BID [facility] Last Admin: 04/13/19 22:55 Dose: 5,000 unit Dextrose/Sodium Chloride (D5-1/2ns -) 1,000 mls @ 75 mls/hr IV ASDIR [facility] Last Admin: 04/13/19 22:55 Dose: 75 mls/hr Levothyroxine Sodium (Synthroid -) 75 mcg PO DAILY@0700 [facility] Last Admin: 04/14/19 06:22 Dose: 75 mcg Pantoprazole Sodium (Protonix -) 40 mg PO DAILY [facility] Potassium Chloride (K-Dur -) 10 meq PO DAILY [facility] Torsemide (Demadex -) 10 mg PO DAILY [facility] Valacyclovir HCl (Valtrex -) 500 mg PO DAILY [facility] - Objective Vital Signs: Vital Signs Temperature 98.8 F 04/14/19 05:55 Pulse Rate 82 04/14/19 05:55 Respiratory Rate 18 04/14/19 05:55 Blood Pressure 108/58 L 04/14/19 05:55 O2 Sat by Pulse Oximetry (%) 98 04/13/19 21:00 Constitutional: Yes: Thin Eyes: Yes: WNL HENT: Yes: WNL Neck: Yes: Rigid Cardiovascular: Yes: Pulse Irregular (frequent APCs), S1, S2 Respiratory: Yes: WNL Gastrointestinal: Yes: WNL ...Rectal Exam: Yes: Deferred Genitourinary: No: Anuria Breast(s): Yes: WNL, Skin Changes (peeling reddish "rash under left breast ( dressed); dark "healed" strip under right breast (pt gives hx shingles and fungus) Musculoskeletal: Yes: Muscle Weakness Extremities: Yes: WNL Edema: No Peripheral Pulses WNL: Yes Integumentary: Yes: Rash Wound/Incision: Yes: Reddened (under left breast) Psychiatric: Yes: Alert, Oriented, Other (depressed) Labs: CBC, BMP 04/14/19 06:20 Abnormal Lab Results 04/13/19 04/14/19 11:20 06:20 Potassium 3.3 L Chloride 108 H 110 H BUN 25.8 H 22.2 H Random Glucose 139 H Calcium 7.9 L 7.3 L AST 8 L 9 L ALT 12 L Total Protein 6.0 L Albumin 2.0 L 1.8 L Abnormal Lab Results 04/13/19 04/14/19 04/14/19 11:20 06:20 06:20 RBC 2.99 L Hgb 9.7 L Hct 29.1 L MCV 97.2 H RDW 17.2 H Plt Count 123 L Monocytes % 15.8 H D Potassium 3.3 L Chloride 108 H 110 H BUN 25.8 H 22.2 H Random Glucose 139 H Calcium 7.9 L 7.3 L AST 8 L 9 L ALT 12 L Total Protein 6.0 L Albumin 2.0 L 1.8 L - ....Imaging EKG: Image Reviewed (NSR;) Other: Image Reviewed (telemetry: NSR; frequent APCs) Problem List - Problems (1) Hypokalemia Assessment/Plan: Replete, and keep 4-4.5. F/u all other elctrolytes. Code(s): E87.6 - HYPOKALEMIA (2) Syncope Assessment/Plan: orthostatic vital signs Maintain hydration (on IV fluids); f/u diarrhea. F?u BUN (increaed onadmission)/ Cr. Carotid artery US 01/18: at least moderate bilateral atherosclerotic plaque ( bifurcations); no significant stenoses. CAT 12/2018: no PE. ECHO: normal LVEF and chamber sizes; no aortic stenosis noted. Code(s): R55 - SYNCOPE AND COLLAPSE (3) HTN (hypertension) Code(s): I10 - ESSENTIAL (PRIMARY) HYPERTENSION Qualifiers: Hypertension type: unspecified Qualified Code(s): I10 - Essential (primary ) hypertension (4) Multiple myeloma Code(s): C90.00 - MULTIPLE MYELOMA NOT HAVING ACHIEVED REMISSION Qualifiers: Multiple myeloma remission status: not in remission Qualified Code(s): C90.00 - Multiple myeloma not having achieved remission (5) Weakness Code(s): R53.1 - WEAKNESS (6) Weight loss Code(s): R63.4 - ABNORMAL WEIGHT LOSS (7) Hypoalbuminemia Code(s): E88.09 - OTH DISORDERS OF PLASMA-PROTEIN METABOLISM, NEC (8) Gout Code(s): M10.9 - GOUT, UNSPECIFIED (9) Shingles Assessment/Plan: On Valtrex. Code(s): B02.9 - ZOSTER WITHOUT COMPLICATIONS (10) Hypothyroidism Assessment/Plan: On Synthroid; TSH WNL recently. Code(s): E03.9 - HYPOTHYROIDISM, UNSPECIFIED Qualifiers: Hypothyroidism type: acquired Qualified Code(s): E03.9 - Hypothyroidism, unspecified (11) HLD (hyperlipidemia) Assessment/Plan: on atorvastatin. Code(s): E78.5 - HYPERLIPIDEMIA, UNSPECIFIED Qualifiers: Hyperlipidemia type: unspecified Qualified Code(s): E78.5 - Hyperlipidemia , unspecified (12) ASHD (arteriosclerotic heart disease) Assessment/Plan: s/p NSTEMI ?12/2018--> "one stent" at [facility] 12/2018; f/u records. On ASA, clopidogrel, atorvastatin. Consider metoprolol, if BP allows (s/p MA; frequent APCs; HTN). Code(s): I25.10 - ATHSCL HEART DISEASE OF [place] CORONARY ARTERY W/O ANG PCTRS (13) Depression Assessment/Plan: Pt says she is deeply depressed over her health, as well as the deaths of two daughters. She was on Paxil in the past. She requests to speak with a psychiatrist/psychologist. Code(s): F32.9 - MAJOR DEPRESSIVE DISORDER, SINGLE EPISODE, UNSPECIFIED
[2019-04-14 09:22] LABS: PLATELET COUNT 123 K/MM3 (134-434)
[2019-04-14] MEDS ORDERED: PT OWN MED DRAWER 7, Y5N ONE (09:40)
[2019-04-14] MEDS: valACYclovir HCL 500 MG TABLET (FP) PO SCH (09:57)
[2019-04-14] MEDS: ALLOPURINOL 300 MG TABLET (FP) PO SCH (09:58)
[2019-04-14] MEDS: CLOTRIMAZOLE 1% CREAM 15 GM TUBE TP SCH ×2 (09:58→21:11)
[2019-04-14] MEDS: HEPARIN NA (PORCINE) 5,000 UNITS/ML 1ML VIAL SQ SCH ×2 (09:58→21:10)
[2019-04-14] MEDS: CLOPIDOGREL BISULFATE 75 MG TABLET (FP) PO SCH (09:58)
[2019-04-14] MEDS: POTASSIUM CHLORIDE TABS 10 MEQ TABLET.ER (FP) PO SCH (09:58)
[2019-04-14] MEDS: PANTOPRAZOLE 40 MG TABLET (FP) PO SCH (09:58)
[2019-04-14] MEDS: ASPIRIN 81 MG CHEWABLE TABLETS PO SCH (09:58)
[2019-04-14] MEDS ORDERED: TORSEMIDE 10 MG TABLET PO SCH (10:00)
[2019-04-14 10:05] LABS: EPI CELLS 4.7 /HPF (0-5/HPF); HYALINE CASTS 2 /lpf (0-8); URINE APPEARANCE CLEAR; URINE BACTERIA 25.4 /hpf (NEGATIVE); URINE BILIRUBIN NEGATIVE (NEGATIVE); URINE COLOR YELLOW; URINE GLUCOSE (UA) NEGATIVE (NEGATIVE); URINE KETONE NEGATIVE (NEGATIVE); URINE LEUK ESTERASE TRACE (NEGATIVE); URINE NITRITE NEGATIVE (NEGATIVE); URINE PROTEIN 4+ (NEGATIVE); URINE RBC 6 /hpf (0-4); URINE UROBILINOGEN 0.2 mg/dL (0.2-1.0); URINE WBC 7 /hpf (0-5)
--- NOTE | 2019-04-14 14:13 | CONSULT ---
Consultation: REQUESTING PROVIDER: CONSULT REQUEST: We have been asked to medically evaluate this patient for MM. HISTORY OF PRESENT ILLNESS: This is a 73 yo F with PMH of MM on Velcade, Decadron and Revlamide, nephrotic syndrome, CAD, CHF ( systolic CHF, EF 45%), HTN, Hyperlipidemia, asthma, hiatal hernia, rectal polyp, and hypothyroidism, who presented with dizziness, s/p syncope in her Oncologist office. The patient also reports that for started having headaches and rash on her face and stopped Revlamide as per her Oncologist recommendations. Today she is still having mild headache but is feeling much better overall, denies CP, F/C/N/V, abdominal pain, dysuria. She was diagnosed with MM last year and states that has been loosing weight 9total 50 lbs. PSH: Breast Biopsy (right for cysts), Hernia Repair (laparoscopic hiatal), Hysterectomy, Tubal Ligation SH: former smoker and drinker, quit in 80s, lives with her son and aid FH: daughter due to NHL at age 14, the other daughter at age 48 of lupus REVIEW OF SYSTEMS: CONSTITUTIONAL: loss of appetite, weight change Absent: fever, chills HEENT: Absent: rhinorrhea, nasal congestion, throat pain, throat swelling, difficulty swallowing,visual changes CARDIOVASCULAR: syncope, Absent: chest pain, palpitations, irregular heart rate, lightheadedness, peripheral edema RESPIRATORY: Absent: cough, shortness of breath, wheezing GASTROINTESTINAL: Absent: abdominal pain, nausea, vomiting, diarrhea, constipation, melena, hematochezia GENITOURINARY: Absent: dysuria, frequency, urgency, hesitancy, hematuria, flank pain, MUSCULOSKELETAL: Absent: myalgia, arthralgia, joint swelling, back pain, neck pain SKIN: rash on face and under her breast Absent: itching, pallor HEMATOLOGIC/IMMUNOLOGIC: Absent: easy bleeding, easy bruising, lymphadenopathy, frequent infections ENDOCRINE:unexplained weight loss Absent: unexplained weight gain, NEUROLOGIC: Absent: headache, focal weakness or paresthesias, dizziness, unsteady gait, seizure PSYCHIATRIC: Absent: anxiety, depression PHYSICAL EXAMINATION Vital Signs - 24 hr 04/13/19 04/13/19 04/13/19 16:59 19:22 21:00 Temperature 98.3 F 98.9 F 98.4 F Pulse Rate 73 Pulse Rate [ 79 78 Right Radial] Pulse Rate [ Right side Sitting] Pulse Rate [ Right side Standing] Pulse Rate [ Right side Supine] Respiratory 18 16 Rate Blood Pressure 127/76 Blood Pressure 121/56 L 106/50 L [Left Arm] Blood Pressure [Right side Sitting] Blood Pressure [Right side Standing] Blood Pressure [Right side Supine] O2 Sat by Pulse 99 98 98 Oximetry (%) 04/13/19 04/14/19 04/14/19 21:03 05:54 05:55 Temperature 98.4 F 98.8 F Pulse Rate 73 82 Pulse Rate [ Right Radial] Pulse Rate [ 77 Right side Sitting] Pulse Rate [ 80 Right side Standing] Pulse Rate [ 82 Right side Supine] Respiratory 16 18 Rate Blood Pressure 127/76 108/58 L Blood Pressure [Left Arm] Blood Pressure 107/62 [Right side Sitting] Blood Pressure 122/66 [Right side Standing] Blood Pressure 108/58 L [Right side Supine] O2 Sat by Pulse Oximetry (%) 04/14/19 04/14/19 09:11 11:44 Temperature Pulse Rate Pulse Rate [ Right Radial] Pulse Rate [ 76 Right side Sitting] Pulse Rate [ 77 Right side Standing] Pulse Rate [ 78 Right side Supine] Respiratory 18 Rate Blood Pressure Blood Pressure [Left Arm] Blood Pressure 111/53 L [Right side Sitting] Blood Pressure 126/55 L [Right side Standing] Blood Pressure 116/64 [Right side Supine] O2 Sat by Pulse 98 Oximetry (%) GENERAL: Awake, alert, and fully oriented, in no acute distress, lying in bed and covered with blankets. HEAD: Normal with no signs of trauma. EYES: Pupils equal, round and reactive to light, extraocular movements intact, sclera anicteric, conjunctiva clear. EARS, NOSE, THROAT: Oropharynx clear without exudates, no thrush. Moist mucous membranes. NECK: Normal range of motion, supple. LUNGS: Breath sounds equal, clear to auscultation bilaterally. No wheezes, and no crackles. No accessory muscle use. HEART: Regular rate and rhythm, normal S1 and S2 without murmur, rub or gallop. ABDOMEN: Soft, nontender, not distended, normoactive bowel sounds, no guarding, no rebound, no masses. MUSCULOSKELETAL: No bony deformities or tenderness. UPPER EXTREMITIES: No peripheral edema. LOWER EXTREMITIES: 2+ pulses. No peripheral edema. NEUROLOGICAL:Non focal. Normal speech. PSYCHIATRIC: Cooperative. Good eye contact. Appropriate mood and affect. SKIN: Warm, dry, normal turgor, rash under brease, foul smelling, erythema, dry skin patches around her mouth. Laboratory Results - last 24 hr 04/13/19 04/14/19 04/14/19 21:40 06:20 06:20 WBC 4.2 RBC 2.99 L Hgb 9.7 L Hct 29.1 L MCV 97.2 H MCH 32.6 MCHC 33.5 RDW 17.2 H Plt Count 123 L MPV 11.1 Absolute Neuts (auto) 2.5 Neutrophils % 59.1 D Lymphocytes % 24.8 D Monocytes % 15.8 H D Eosinophils % 0.0 Basophils % 0.3 Nucleated RBC % 0 Sodium 142 Potassium 3.3 L Chloride 110 H Carbon Dioxide 23 Anion Gap 10 BUN 22.2 H Creatinine 0.8 Est GFR (CKD-EPI)AfAm 83.59 Est GFR (CKD-EPI)NonAf 72.12 Random Glucose 82 Calcium 7.3 L Magnesium 2.0 Total Bilirubin 0.4 AST 9 L ALT 12 L Alkaline Phosphatase 50 Creatine Kinase 70 Troponin I 0.04 Total Protein 6.0 L Albumin 1.8 L Urine Color Urine Appearance Urine pH Ur Specific [place] Urine Protein Urine Glucose (UA) Urine Ketones Urine Blood Urine Nitrite Urine Bilirubin Urine Urobilinogen Ur Leukocyte Esterase Urine WBC (Auto) Urine RBC (Auto) Urine Casts (Auto) U Epithel Cells (Auto) Urine Bacteria (Auto) 04/14/19 09:00 WBC RBC Hgb Hct MCV MCH MCHC RDW Plt Count MPV Absolute Neuts (auto) Neutrophils % Lymphocytes % Monocytes % Eosinophils % Basophils % Nucleated RBC % Sodium Potassium Chloride Carbon Dioxide Anion Gap BUN Creatinine Est GFR (CKD-EPI)AfAm Est GFR (CKD-EPI)NonAf Random Glucose Calcium Magnesium Total Bilirubin AST ALT Alkaline Phosphatase Creatine Kinase Troponin I Total Protein Albumin Urine Color Yellow Urine Appearance Clear Urine pH 6.0 Ur Specific [place] 1.015 Urine Protein 4+ H Urine Glucose (UA) Negative Urine Ketones Negative Urine Blood 2+ H Urine Nitrite Negative Urine Bilirubin Negative Urine Urobilinogen 0.2 Ur Leukocyte Esterase Trace Urine WBC (Auto) 7 Urine RBC (Auto) 6 Urine Casts (Auto) 2 U Epithel Cells (Auto) 4.7 Urine Bacteria (Auto) 25.4 Active Medications Generic Name Dose Route Start Last Admin Trade Name Edgar PRN Reason Stop Dose Admin Allopurinol 300 mg 04/14/19 10:00 04/14/19 09:58 Zyloprim - PO 300 mg DAILY PABLITO Administration Aspirin 81 mg 04/14/19 10:00 04/14/19 09:58 Asa - PO 81 mg DAILY PABLITO Administration Atorvastatin Calcium 40 mg 04/13/19 22:00 04/13/19 22:56 Lipitor - PO 40 mg HS PABLITO Administration Clopidogrel Bisulfate 75 mg 04/14/19 10:00 04/14/19 09:58 Plavix - PO 75 mg DAILY PABLITO Administration Clotrimazole 1 applic 04/13/19 22:00 04/14/19 09:58 Lotrimin 1% Cream - TP 1 applic BID PABLITO Administration Heparin Sodium (Porcine) 5,000 unit 04/13/19 22:00 04/14/19 09:58 Heparin - SQ 5,000 unit BID PABLITO Administration Dextrose/Sodium Chloride 1,000 mls @ 75 mls/hr 04/13/19 21:15 04/13/19 22:55 D5-1/2ns - IV 75 mls/hr ASDIR PABLITO Administration Levothyroxine Sodium 75 mcg 04/14/19 07:00 04/14/19 06:22 Synthroid - PO 75 mcg DAILY@0700 PABLITO Administration Pantoprazole Sodium 40 mg 04/14/19 10:00 04/14/19 09:58 Protonix - PO 40 mg DAILY PABLITO Administration Potassium Chloride 10 meq 04/14/19 10:00 04/14/19 09:58 K-Dur - PO 10 meq DAILY PABLITO Administration Torsemide 10 mg 04/14/19 10:00 04/14/19 09:58 Demadex - PO 10 mg DAILY PABLITO Administration Valacyclovir HCl 500 mg 04/14/19 10:00 04/14/19 09:57 Valtrex - PO 500 mg DAILY PABLITO Administration ASSESSMENT/PLAN: This is a 73 yo F with PMH of MM on Velcade, Decadron and Revlamide, nephrotic syndrome, CAD, amyloidosis, CHF (systolic CHF, EF 45%), HTN, hyperlipidemia, asthma, hiatal hernia, rectal polyp, and hypothyroidism, who presented with dizziness, s/p syncope in her Oncologist office. MM syncope anemia nephrotic syndrome CAD CHF HTL HLD asthma hypothyroid Plan: continue to monitor on telemetry, CT head neg, no ACS, likely side effect of Revlamide Nephrology consulted for nephrotiic syndrome, f/u blood and urine cultures f/u iron studies Dispo: We will continue to follow the patient. Thank you for this consultative opportunity. Problem List - Problems (1) Syncope Code(s): R55 - SYNCOPE AND COLLAPSE (2) Anemia Code(s): D64.9 - ANEMIA, UNSPECIFIED (3) CAD (coronary artery disease) Code(s): I25.10 - ATHSCL HEART DISEASE OF [place] CORONARY ARTERY W/O ANG PCTRS Qualifiers: (4) CHF (congestive heart failure) Code(s): I50.9 - HEART FAILURE, UNSPECIFIED Qualifiers: Heart failure type: systolic Heart failure chronicity: unspecified Qualified Code(s): I50.20 - Unspecified systolic (congestive) heart failure (5) CKD (chronic kidney disease) Code(s): N18.9 - CHRONIC KIDNEY DISEASE, UNSPECIFIED (6) Dizziness Code(s): R42 - DIZZINESS AND GIDDINESS (7) HLD (hyperlipidemia) Code(s): E78.5 - HYPERLIPIDEMIA, UNSPECIFIED Qualifiers: Hyperlipidemia type: unspecified Qualified Code(s): E78.5 - Hyperlipidemia , unspecified (8) HTN (hypertension) Code(s): I10 - ESSENTIAL (PRIMARY) HYPERTENSION Qualifiers: Hypertension type: unspecified Qualified Code(s): I10 - Essential (primary ) hypertension Visit type - Emergency Visit Emergency Visit: Yes ED Registration Date: 04/13/19 Care time: The patient presented to the Emergency Department on the above date and was hospitalized for further evaluation of their emergent condition. - New Patient This patient is new to me today: Yes Date on this admission: 04/14/19 - Critical Care Critical Care patient: No
--- NOTE | 2019-04-14 14:55 | CONSULT ---
Consult Consult Specialty:: Nephrology Reason for Consultation:: hypotension and proteinuria - History of Present Illness Chief Complaint: syncope History of Present Illness: Pt is a 74 year old female with pmhx of htn, hld, cad, chf, amyloid, proteinuria , and myltiple myelpma who was taken to ER after having a syncopal episode. She became dizzy and light headed. She was found to be hypotensive. She denies shortness of breath. She denies lower ext edema. She is awake and alert. She also had an episode of diarrhea and vomiting. - History Source History Provided By: Patient, Medical Record - Past Medical History Cardio/Vascular: Yes: CAD (s/p HOLLY D1 this month after NSTEMI), CHF (Chronic systolic CHF, mildly reduced LV function with EF 45%), HTN, Hyperlipdemia Pulmonary: Yes: Asthma Gastrointestinal: Yes: Other (hiatal hernia; rectal polyp) Renal/: Yes: Renal Inusuff, Other (proteinuria) Psych: Yes: Depression Endocrine: Yes: Hypothyroidism - Past Surgical History Past Surgical History: Yes: Breast Biopsy (right for cysts), Hernia Repair ( laparoscopic hiatal), Hysterectomy, Tubal Ligation - Alcohol/Substance Use Hx Alcohol Use: No History of Substance Use: reports: None - Smoking History Smoking history: Unknown if ever smoked Have you smoked in the past 12 months: No Aproximately how many cigarettes per day: 5 If you are a former smoker, when did you quit?: 1969 - Social History ADL: Independent History of Recent Travel: No Home Medications - Allergies Allergies/Adverse Reactions: Allergies Allergy/AdvReac Type Severity Reaction Status Date / Time Penicillins Allergy Severe Rash Verified 04/13/19 09:58 - Home Medications Home Medications: Ambulatory Orders Allopurinol [Zyloprim -] 300 mg PO DAILY #30 tablet 11/09/18 Pantoprazole Sodium [Protonix -] 40 mg PO DAILY #30 tablet.ec 11/09/18 Aspirin [ASA -] 81 mg PO DAILY 12/30/18 Clopidogrel Bisulfate [Plavix -] 75 mg PO DAILY #30 tablet 01/07/19 Valacyclovir HCl [Valtrex -] 500 mg PO DAILY #30 tablet 01/07/19 Levothyroxine [Synthroid -] 75 mcg PO DAILY@0700 01/28/19 Potassium Chloride [K-Dur -] 10 meq PO DAILY 01/28/19 Carvedilol [Coreg -] 3.125 mg PO BID #60 tablet 03/28/19 Atorvastatin Ca [Lipitor] 40 mg PO HS 04/09/19 Loratadine 10 mg PO DAILY 04/09/19 Torsemide [Demadex] 10 mg PO DAILY 04/09/19 Family Disease History - Family Disease History Family Disease History: [place]: Daughter (1 passed at 14yo of Hodgkin's lymphoma; 1 passed at 48 of lupus), Other: Daughter Review of Systems - Review of Systems Constitutional: reports: Malaise Eyes: reports: No Symptoms HENT: reports: No Symptoms Neck: reports: No Symptoms Cardiovascular: reports: No Symptoms Respiratory: reports: No Symptoms Gastrointestinal: reports: Diarrhea, Vomiting Genitourinary: reports: No Symptoms Integumentary: reports: No Symptoms Endocrine: reports: No Symptoms Hematology/Lymphatic: reports: No Symptoms Psychiatric: reports: No Symptoms Physical Exam Vital Signs: Vital Signs Temperature 98.4 F 04/14/19 14:11 Pulse Rate 77 04/14/19 14:11 Respiratory Rate 18 04/14/19 14:11 Blood Pressure 106/55 L 04/14/19 14:11 O2 Sat by Pulse Oximetry (%) 98 04/14/19 11:44 Constitutional: Yes: Calm Eyes: Yes: Conjunctiva Clear HENT: Yes: Atraumatic Neck: Yes: Supple Cardiovascular: Yes: S1, S2 Respiratory: Yes: CTA Bilaterally Gastrointestinal: Yes: Soft Renal/: Yes: WNL Musculoskeletal: Yes: WNL Edema: No Neurological: Yes: Oriented Psychiatric: Yes: Oriented Labs: CBC, BMP 04/14/19 06:20 04/14/19 06:20 Laboratory Tests 03/21/19 04/13/19 04/14/19 09:40 11:20 06:20 WBC 4.2 Hgb 9.7 L Plt Count 123 L Sodium 142 Potassium 3.9 Creatinine 1.1 Calcium 7.9 L Urine Protein Protein/Creatinin Ratio 10.180 04/14/19 04/14/19 06:20 09:00 WBC Hgb Plt Count Sodium 142 Potassium 3.3 L Creatinine 0.8 Calcium 7.3 L Urine Protein 4+ H Protein/Creatinin Ratio Imaging - Results Chest X-ray: Report Reviewed Cat Scan: Report Reviewed Problem List - Problems (1) Hypokalemia Code(s): E87.6 - HYPOKALEMIA Assessment/Plan Current Medications Generic Name Dose Route Start Last Admin Trade Name Edgar PRN Reason Stop Dose Admin Allopurinol 300 mg 04/14/19 10:00 04/14/19 09:58 Zyloprim - PO 300 mg DAILY PABLITO Administration Aspirin 81 mg 04/14/19 10:00 04/14/19 09:58 Asa - PO 81 mg DAILY PABLITO Administration Atorvastatin Calcium 40 mg 04/13/19 22:00 04/13/19 22:56 Lipitor - PO 40 mg HS PABLITO Administration Clopidogrel Bisulfate 75 mg 04/14/19 10:00 04/14/19 09:58 Plavix - PO 75 mg DAILY PABLITO Administration Clotrimazole 1 applic 04/13/19 22:00 04/14/19 09:58 Lotrimin 1% Cream - TP 1 applic BID PABLITO Administration Heparin Sodium (Porcine) 5,000 unit 04/13/19 22:00 04/14/19 09:58 Heparin - SQ 5,000 unit BID PABLITO Administration Dextrose/Sodium Chloride 1,000 mls @ 75 mls/hr 04/13/19 21:15 04/13/19 22:55 D5-1/2ns - IV 75 mls/hr ASDIR PABLITO Administration Levothyroxine Sodium 75 mcg 04/14/19 07:00 04/14/19 06:22 Synthroid - PO 75 mcg DAILY@0700 PABLITO Administration Pantoprazole Sodium 40 mg 04/14/19 10:00 04/14/19 09:58 Protonix - PO 40 mg DAILY PABLITO Administration Potassium Chloride 10 meq 04/14/19 10:00 04/14/19 09:58 K-Dur - PO 10 meq DAILY PABLITO Administration Torsemide 10 mg 04/14/19 10:00 04/14/19 09:58 Demadex - PO 10 mg DAILY PABLITO Administration Valacyclovir HCl 500 mg 04/14/19 10:00 04/14/19 09:57 Valtrex - PO 500 mg DAILY PABLITO Administration Impression 1. proteinuria 2. multiple myeloma 3. amyloid 4. syncope 5. hypotension 6. HLD 7. hypothyroidism 8. anemia 9. CKD 10. hypokalemia Plan - cont fluids - stop torsemide - replace potassium - check mag - pt still with proteinuria - monitor renal function
[2019-04-14] MEDS ORDERED: POTASSIUM CHLORIDE TABS 20 MEQ TABLET.ER (FP) PO ONE (14:58)
--- NOTE | 2019-04-14 19:34 | PN ---
Teaching Attending Note Name of Resident: Milagro Mauricio ATTENDING PHYSICIAN STATEMENT I saw and evaluated the patient. I reviewed the resident's note and discussed the case with the resident. I agree with the resident's findings and plan as documented. ASSESSMENT AND PLAN: 74 y/o patient with myeloma/amyloid/nephrotic syndrome/ cardiac involvement Admtted with hypotension CXR --negative CT head negative Check cultures Consult cardio/nephro to adjust meds -very sensitive to diuretics/BP meds Tolerated low dose of losartan also with rsash --/ revlimid monitor revlimid on hold
--- NOTE | 2019-04-14 19:44 | PN ---
Progress Note, Physician - Current Medication List Current Medications: Active Medications Allopurinol (Zyloprim -) 300 mg PO DAILY [facility] Last Admin: 04/14/19 09:58 Dose: 300 mg Aspirin (Asa -) 81 mg PO DAILY [facility] Last Admin: 04/14/19 09:58 Dose: 81 mg Atorvastatin Calcium (Lipitor -) 40 mg PO HS [facility] Last Admin: 04/13/19 22:56 Dose: 40 mg Clopidogrel Bisulfate (Plavix -) 75 mg PO DAILY [facility] Last Admin: 04/14/19 09:58 Dose: 75 mg Clotrimazole (Lotrimin 1% Cream -) 1 applic TP BID [facility] Last Admin: 04/14/19 09:58 Dose: 1 applic Heparin Sodium (Porcine) (Heparin -) 5,000 unit SQ BID [facility] Last Admin: 04/14/19 09:58 Dose: 5,000 unit Dextrose/Sodium Chloride (D5-1/2ns -) 1,000 mls @ 75 mls/hr IV ASDIR [facility] Last Admin: 04/13/19 22:55 Dose: 75 mls/hr Levothyroxine Sodium (Synthroid -) 75 mcg PO DAILY@0700 [facility] Last Admin: 04/14/19 06:22 Dose: 75 mcg Pantoprazole Sodium (Protonix -) 40 mg PO DAILY [facility] Last Admin: 04/14/19 09:58 Dose: 40 mg Potassium Chloride (K-Dur -) 10 meq PO DAILY [facility] Last Admin: 04/14/19 09:58 Dose: 10 meq Valacyclovir HCl (Valtrex -) 500 mg PO DAILY [facility] Last Admin: 04/14/19 09:57 Dose: 500 mg - Objective Vital Signs: Vital Signs Temperature 98.7 F 04/14/19 17:20 Pulse Rate 83 04/14/19 17:20 Respiratory Rate 20 04/14/19 17:20 Blood Pressure 127/67 04/14/19 17:20 O2 Sat by Pulse Oximetry (%) 98 04/14/19 11:44 Constitutional: Yes: No Distress HENT: Yes: Atraumatic Neck: Yes: Supple Cardiovascular: Yes: Regular Rate and Rhythm Respiratory: Yes: CTA Bilaterally Gastrointestinal: Yes: Normal Bowel Sounds Extremities: Yes: WNL Neurological: Yes: Alert, Oriented Labs: CBC, BMP 04/14/19 06:20 04/14/19 06:20 Problem List - Problems (1) Gout Code(s): M10.9 - GOUT, UNSPECIFIED (2) Hypokalemia Assessment/Plan: replace monitor levels Code(s): E87.6 - HYPOKALEMIA (3) Syncope Code(s): R55 - SYNCOPE AND COLLAPSE (4) ASHD (arteriosclerotic heart disease) Code(s): I25.10 - ATHSCL HEART DISEASE OF [place] CORONARY ARTERY W/O ANG PCTRS (5) CKD (chronic kidney disease) Code(s): N18.9 - CHRONIC KIDNEY DISEASE, UNSPECIFIED (6) HLD (hyperlipidemia) Code(s): E78.5 - HYPERLIPIDEMIA, UNSPECIFIED Qualifiers: Hyperlipidemia type: unspecified Qualified Code(s): E78.5 - Hyperlipidemia , unspecified (7) HTN (hypertension) Code(s): I10 - ESSENTIAL (PRIMARY) HYPERTENSION Qualifiers: Hypertension type: unspecified Qualified Code(s): I10 - Essential (primary ) hypertension Assessment/Plan continue current meds patient stable covering for dr BELL TODAY
[2019-04-14] MEDS: DEXTROSE 5%-0.45% SALINE 1,000 ML IV SCH (21:10)
[2019-04-14] MEDS: ATORVASTATIN CA 20 MG TABLET (FP) PO SCH (21:10)
[2019-04-14] MEDS: ACETAMINOPHEN 325 MG TABLET (FP) PO PRN (21:30)
[2019-04-14] MEDS: NYSTATIN POWDER 100,000 UNITS/GM - 15 GM TOPICAL POWDER TP SCH (22:01)
[2019-04-14] MEDS: FLUCONAZOLE 100 MG TABLET (UD) PO SCH (22:01)
--- NOTE | 2019-04-14 23:01 | CONSULT ---
Consult - text type - Consultation Consultation Note: NEUROLOGY CONSULTATION is greatly appreciated: This 74 yo RH woman lives with her son. PMH is sig for HTN, Chol, Hypothyroidism, gout and Multiple Myeloma. On Velcaide, revlamid, allopurinal, carvedilol, demadex, synthroid, atorvastatin , protonix, plavix, ASA. Admitted after syncopal episode in Oncology office after phlebotomy. Recurred when EMS arived with patient in chair. In ER: Hypotensive CT of head (reviewed): Mild atrophy and microvascular changes. EXAM: BP was 116/60 now 124/80 OFF BP meds No bruits. Cor reg. NEURO: MS/speech: Normal CN II-XII: normal without nystagmus Motor: Normal strength, Bulk and tone. Decreased KJ's. Absent AJ's. Toes downgoing Coord: No FTN dystaxia Sensory: Sl decreased vib toes Gait deferred. IMP: Non-focal neuro exam Mild peripheral neuropathy possibly due to chemoRx Syncope due to hypotension + vasovagal factors. Cannot exclude contribution of dysautonomia associated with neuropathy SUGGEST: D/C carvedilol, demadex Telemetry Check orthostatic BP's Check B12 Out patient neuro f/u for work-up of neuropathy. Thank you very much, Aron Hsu MD
[2019-04-15] MEDS: LEVOTHYROXINE NA 75 MCG TABLET (FP) PO SCH (05:59)
[2019-04-15 08:28] LABS: ALBUMIN 1.7 g/dl (3.4-5.0); BILIRUBIN,TOTAL 0.5 mg/dL (0.2-1); BLOOD UREA NITROGEN 14.2 mg/dL (7-18); CALCIUM 7.3 mg/dL (8.5-10.1); CREATININE 0.7 mg/dL (0.55-1.3); MAGNESIUM 1.9 mg/dL (1.8-2.4); POTASSIUM 3.6 mmol/L (3.5-5.1); TOT PROT 5.7 g/dl (6.4-8.2)
[2019-04-15] MEDS: PANTOPRAZOLE 40 MG TABLET (FP) PO SCH (09:50)
[2019-04-15] MEDS: ASPIRIN 81 MG CHEWABLE TABLETS PO SCH (09:50)
[2019-04-15] MEDS: ALLOPURINOL 300 MG TABLET (FP) PO SCH (09:50)
[2019-04-15] MEDS: CLOPIDOGREL BISULFATE 75 MG TABLET (FP) PO SCH (09:50)
[2019-04-15] MEDS: POTASSIUM CHLORIDE TABS 10 MEQ TABLET.ER (FP) PO SCH (09:50)
[2019-04-15] MEDS: valACYclovir HCL 500 MG TABLET (FP) PO SCH (09:50)
[2019-04-15] MEDS: FLUCONAZOLE 100 MG TABLET (UD) PO SCH (09:50)
[2019-04-15] MEDS: NYSTATIN POWDER 100,000 UNITS/GM - 15 GM TOPICAL POWDER TP SCH ×2 (09:51→21:38)
[2019-04-15] MEDS: HEPARIN NA (PORCINE) 5,000 UNITS/ML 1ML VIAL SQ SCH ×2 (09:51→21:38)
--- NOTE | 2019-04-15 14:48 | PN ---
Physical Exam: SUBJECTIVE: Patient seen and examined, feeling depressed and requesting a psych consultation. The patient also started having nosebleeds today. OBJECTIVE: Vital Signs Period Temp Pulse Resp BP Sys/Moss Pulse Ox Last 24 Hr 98.7 F-99.0 F 72-93 18-20 114-152/60-84 100-100 GENERAL: Awake, alert, and fully oriented, in no acute distress. HEAD: Normal with no signs of trauma. EYES/NOSE: Extraocular movements intact, sclera anicteric, conjunctiva clear, blood present in nostrils bilaterally. EARS, NOSE, THROAT: Moist mucous membranes. NECK: Normal range of motion, supple. LUNGS: Breath sounds equal, clear to auscultation bilaterally. No wheezes, and no crackles. No accessory muscle use. HEART: Regular rate and rhythm, normal S1 and S2 without murmur, rub or gallop. ABDOMEN: Soft, nontender, not distended, normoactive bowel sounds, no guarding, no rebound. LOWER EXTREMITIES: 2+ pulses. No peripheral edema. NEUROLOGICAL: Non focal. Normal speech. PSYCHIATRIC: Depressed, crying. SKIN: Warm, dry, normal turgor, rash under breast, foul smelling, erythema. Laboratory Results - last 24 hr 04/14/19 04/15/19 21:20 06:45 Sodium 141 Potassium 3.6 Chloride 110 H Carbon Dioxide 22 Anion Gap 8 BUN 14.2 Creatinine 0.7 Est GFR (CKD-EPI)AfAm 98.23 Est GFR (CKD-EPI)NonAf 84.75 Random Glucose 81 Calcium 7.3 L Magnesium 1.9 Ferritin 246.7 Total Bilirubin 0.5 AST 8 L ALT 12 L Alkaline Phosphatase 50 Creatine Kinase 65 Troponin I 0.05 Total Protein 5.7 L Albumin 1.7 L Vitamin B12 1530 H TSH 1.15 Active Medications Generic Name Dose Route Start Last Admin Trade Name Freq PRN Reason Stop Dose Admin Acetaminophen 650 mg 04/14/19 22:01 04/14/19 21:30 Tylenol - PO 650 mg Q6H PRN Administration PAIN LEVEL 6-10 Allopurinol 300 mg 04/14/19 10:00 04/15/19 09:50 Zyloprim - PO 300 mg DAILY [facility] Administration Aspirin 81 mg 04/14/19 10:04/15/19 09:50 Asa - PO 81 mg DAILY [facility] Administration Atorvastatin Calcium 40 mg 06/12/19 22:00 04/14/19 21:10 Lipitor - PO 40 mg HS [facility] Administration Clopidogrel Bisulfate 75 mg 04/14/19 10:00 04/15/19 09:50 Plavix - PO 75 mg DAILY [facility] Administration Fluconazole 100 mg 04/14/19 22:00 04/15/19 09:50 Diflucan - PO 100 mg DAILY [facility] Administration Heparin Sodium (Porcine) 5,000 unit 04/13/19 22:00 04/15/19 09:51 Heparin - SQ 5,000 unit BID [facility] Administration Dextrose/Sodium Chloride 1,000 mls @ 75 mls/hr 04/13/19 21:15 04/14/19 21:10 D5-1/2ns - IV 75 mls/hr ASDIR [facility] Administration Levothyroxine Sodium 75 mcg 04/14/19 07:00 04/15/19 05:59 Synthroid - PO 75 mcg DAILY@0700 [facility] Administration Nystatin 1 applic 04/14/19 22:00 04/15/19 09:51 Nystop Powder - TP 1 applic BID [facility] Administration Pantoprazole Sodium 40 mg 04/14/19 10:00 04/15/19 09:50 Protonix - PO 40 mg DAILY [facility] Administration Potassium Chloride 10 meq 04/14/19 10:00 04/15/19 09:50 K-Dur - PO 10 meq DAILY [facility] Administration Valacyclovir HCl 500 mg 04/14/19 10:00 04/15/19 09:50 Valtrex - PO 500 mg DAILY [facility] Administration ASSESSMENT/PLAN: This is a 73 yo F with PMH of MM on Velcade, Decadron and Revlamide, nephrotic syndrome, CAD, amyloidosis, CHF (systolic CHF, EF 45%), HTN, hyperlipidemia, asthma, hiatal hernia, rectal polyp, and hypothyroidism, who presented with dizziness, s/p syncope in her Oncologist office. MM syncope anemia nephrotic syndrome CAD CHF HTL HLD asthma hypothyroid Plan: nosebleed-ordered CBC, PTT, PT stat continue to monitor on telemetry,, no more episodes of dizziness, changed medications for BP Nephrology consulted for nephrotiic syndrome, f/u blood and urine cultures Consulted Psychologist Dr Murillo. Dispo: We will continue to follow the patient. Thank you for this consultative opportunity. Problem List - Problems (1) Syncope Code(s): R55 - SYNCOPE AND COLLAPSE (2) Anemia Code(s): D64.9 - ANEMIA, UNSPECIFIED (3) CAD (coronary artery disease) Code(s): I25.10 - ATHSCL HEART DISEASE OF [place] CORONARY ARTERY W/O ANG PCTRS Qualifiers: (4) CHF (congestive heart failure) Code(s): I50.9 - HEART FAILURE, UNSPECIFIED Qualifiers: Heart failure type: systolic Heart failure chronicity: unspecified Qualified Code(s): I50.20 - Unspecified systolic (congestive) heart failure (5) CKD (chronic kidney disease) Code(s): N18.9 - CHRONIC KIDNEY DISEASE, UNSPECIFIED (6) Dizziness Code(s): R42 - DIZZINESS AND GIDDINESS (7) HLD (hyperlipidemia) Code(s): E78.5 - HYPERLIPIDEMIA, UNSPECIFIED Qualifiers: Hyperlipidemia type: unspecified Qualified Code(s): E78.5 - Hyperlipidemia , unspecified (8) HTN (hypertension) Code(s): I10 - ESSENTIAL (PRIMARY) HYPERTENSION Qualifiers: Hypertension type: unspecified Qualified Code(s): I10 - Essential (primary ) hypertension Visit type - Emergency Visit Emergency Visit: Yes ED Registration Date: 04/13/19 Care time: The patient presented to the Emergency Department on the above date and was hospitalized for further evaluation of their emergent condition. - New Patient This patient is new to me today: No - Critical Care Critical Care patient: No - Discharge Referral Referred to [facility] Med P.C.: No
--- NOTE | 2019-04-15 16:12 | PN ---
Progress Note, Physician History of Present Illness: Pt seen and examined at bedside. She is asking to see a psychiatrist as she feels depressed. - Current Medication List Current Medications: Active Medications Acetaminophen (Tylenol -) 650 mg PO Q6H PRN PRN Reason: PAIN LEVEL 6-10 Last Admin: 04/14/19 21:30 Dose: 650 mg Allopurinol (Zyloprim -) 300 mg PO DAILY [facility] Last Admin: 04/15/19 09:50 Dose: 300 mg Aspirin (Asa -) 81 mg PO DAILY [facility] Last Admin: 04/15/19 09:50 Dose: 81 mg Atorvastatin Calcium (Lipitor -) 40 mg PO HS [facility] Last Admin: 04/14/19 21:10 Dose: 40 mg Clopidogrel Bisulfate (Plavix -) 75 mg PO DAILY [facility] Last Admin: 04/15/19 09:50 Dose: 75 mg Fluconazole (Diflucan -) 100 mg PO DAILY [facility] Last Admin: 04/15/19 09:50 Dose: 100 mg Heparin Sodium (Porcine) (Heparin -) 5,000 unit SQ BID [facility] Last Admin: 04/15/19 09:51 Dose: 5,000 unit Dextrose/Sodium Chloride (D5-1/2ns -) 1,000 mls @ 75 mls/hr IV ASDIR [facility] Last Admin: 04/14/19 21:10 Dose: 75 mls/hr Levothyroxine Sodium (Synthroid -) 75 mcg PO DAILY@0700 [facility] Last Admin: 04/15/19 05:59 Dose: 75 mcg Nystatin (Nystop Powder -) 1 applic TP BID [facility] Last Admin: 04/15/19 09:51 Dose: 1 applic Pantoprazole Sodium (Protonix -) 40 mg PO DAILY [facility] Last Admin: 04/15/19 09:50 Dose: 40 mg Potassium Chloride (K-Dur -) 10 meq PO DAILY [facility] Last Admin: 04/15/19 09:50 Dose: 10 meq Valacyclovir HCl (Valtrex -) 500 mg PO DAILY [facility] Last Admin: 04/15/19 09:50 Dose: 500 mg - Objective Vital Signs: Vital Signs Temperature 97.4 F L 04/15/19 15:00 Pulse Rate 81 04/15/19 15:00 Respiratory Rate 18 04/15/19 15:00 Blood Pressure 132/65 04/15/19 15:00 O2 Sat by Pulse Oximetry (%) 100 04/15/19 09:00 Constitutional: Yes: Calm Eyes: Yes: Conjunctiva Clear HENT: Yes: Atraumatic Cardiovascular: Yes: S1, S2 Respiratory: Yes: CTA Bilaterally Gastrointestinal: Yes: Soft Genitourinary: Yes: WNL Musculoskeletal: Yes: WNL Edema: No Neurological: Yes: Oriented Psychiatric: Yes: Oriented Labs: CBC, BMP 04/15/19 06:45 Problem List - Problems (1) Hypokalemia Code(s): E87.6 - HYPOKALEMIA Assessment/Plan Current Medications Generic Name Dose Route Start Last Admin Trade Name Freq PRN Reason Stop Dose Admin Acetaminophen 650 mg 04/14/19 22:01 04/14/19 21:30 Tylenol - PO 650 mg Q6H PRN Administration PAIN LEVEL 6-10 Allopurinol 300 mg 04/14/19 10:00 04/15/19 09:50 Zyloprim - PO 300 mg DAILY [facility] Administration Aspirin 81 mg 04/14/19 10:00 04/15/19 09:50 Asa - PO 81 mg DAILY [facility] Administration Atorvastatin Calcium 40 mg 04/13/19 22:00 04/14/19 21:10 Lipitor - PO 40 mg HS [facility] Administration Clopidogrel Bisulfate 75 mg 04/14/19 10:00 04/15/19 09:50 Plavix - PO 75 mg DAILY [facility] Administration Fluconazole 100 mg 04/14/19 22:00 04/15/19 09:50 Diflucan - PO 100 mg DAILY [facility] Administration Heparin Sodium (Porcine) 5,000 unit 04/13/19 22:00 04/15/19 09:51 Heparin - SQ 5,000 unit BID [facility] Administration Dextrose/Sodium Chloride 1,000 mls @ 75 mls/hr 04/13/19 21:15 04/14/19 21:10 D5-1/2ns - IV 75 mls/hr ASDIR [facility] Administration Levothyroxine Sodium 75 mcg 04/14/19 07:00 04/15/19 05:59 Synthroid - PO 75 mcg DAILY@0700 [facility] Administration Nystatin 1 applic 04/14/19 22:00 04/15/19 09:51 Nystop Powder - TP 1 applic BID [facility] Administration Pantoprazole Sodium 40 mg 04/14/19 10:00 04/15/19 09:50 Protonix - PO 40 mg DAILY [facility] Administration Potassium Chloride 10 meq 04/14/19 10:00 04/15/19 09:50 K-Dur - PO 10 meq DAILY [facility] Administration Valacyclovir HCl 500 mg 04/14/19 10:00 04/15/19 09:50 Valtrex - PO 500 mg DAILY [facility] Administration Impression 1. proteinuria 2. multiple myeloma 3. amyloid 4. syncope 5. hypotension 6. HLD 7. hypothyroidism 8. anemia 9. CKD 10. hypokalemia Plan - decrease fluids - bp stable - monitor lytes - psych eval - will follow PRN - pt still with proteinuria
[2019-04-15] MEDS ORDERED: SODIUM CHLORIDE 1,000 ML IV SCH (16:15)
[2019-04-15 16:40] LABS: HEMATOCRIT 27.1 % (32.4-45.2); HEMOGLOBIN 9.1 GM/dL (10.7-15.3); MCH 32.4 pg (25.7-33.7); MCHC 33.7 g/dl (32.0-36.0); MEAN CELL VOLUME 96.1 fl (80-96); RBC 2.82 M/mm3 (3.60-5.2); RDW 16.8 % (11.6-15.6); WHITE BLOOD COUNT 4.2 K/mm3 (4.0-10.0)
--- NOTE | 2019-04-15 17:09 | PN ---
Teaching Attending Note Name of Resident: Milagro Mauricio ATTENDING PHYSICIAN STATEMENT I saw and evaluated the patient. I reviewed the resident's note and discussed the case with the resident. I agree with the resident's findings and plan as documented. SUBJECTIVE: Patient seen and examined Depressed Had some epistaxis earlier today Last Vital Signs Temp Pulse Resp BP Pulse Ox 97.4 F L 81 18 132/65 100 04/15/19 15:00 04/15/19 15:00 04/15/19 15:00 04/15/19 15:00 04/15/19 09:00 HEENT: ZOILA, EOM Intact Cor: RSR, No murmurs, No gallops Lungs: Clear to P&A Abd: Soft, Normal bowel sounds, No organomegaly Ext:No significant edema Skin: No rashes, Integument intact Monilia beneath breasts L>R Current Medications Generic Name Dose Route Start Last Admin Trade Name Freq PRN Reason Stop Dose Admin Acetaminophen 650 mg 04/14/19 22:01 04/14/19 21:30 Tylenol - PO 650 mg Q6H PRN Administration PAIN LEVEL 6-10 Allopurinol 300 mg 04/14/19 10:00 04/15/19 09:50 Zyloprim - PO 300 mg DAILY [facility] Administration Aspirin 81 mg 04/14/19 10:00 04/15/19 09:50 Asa - PO 81 mg DAILY [facility] Administration Atorvastatin Calcium 40 mg 04/13/19 22:00 04/14/19 21:10 Lipitor - PO 40 mg HS [facility] Administration Clopidogrel Bisulfate 75 mg 04/14/19 10:00 04/15/19 09:50 Plavix - PO 75 mg DAILY [facility] Administration Fluconazole 100 mg 04/14/19 22:00 04/15/19 09:50 Diflucan - PO 100 mg DAILY [facility] Administration Heparin Sodium (Porcine) 5,000 unit 04/13/19 22:00 04/15/19 09:51 Heparin - SQ 5,000 unit BID [facility] Administration Sodium Chloride 1,000 mls @ 50 mls/hr 04/15/19 16:15 Normal Saline - IV 04/16/19 16:12 ASDIR [facility] Levothyroxine Sodium 75 mcg 04/14/19 07:00 04/15/19 05:59 Synthroid - PO 75 mcg DAILY@0700 [facility] Administration Nystatin 1 applic 04/14/19 22:00 04/15/19 09:51 Nystop Powder - TP 1 applic BID [facility] Administration Pantoprazole Sodium 40 mg 04/14/19 10:00 04/15/19 09:50 Protonix - PO 40 mg DAILY [facility] Administration Potassium Chloride 10 meq 04/14/19 10:00 04/15/19 09:50 K-Dur - PO 10 meq DAILY [facility] Administration Valacyclovir HCl 500 mg 04/14/19 10:00 04/15/19 09:50 Valtrex - PO 500 mg DAILY [facility] Administration CBC, BMP 04/15/19 06:45 Impression: Myeloma/amyloid Syncope Depression Monilia Plan: current therapy Followup neurology recommendations OBJECTIVE: ASSESSMENT AND PLAN:
[2019-04-15 17:10] LABS: INR 1.11 (0.83-1.09); PROTHROMBIN TIME (PATIENT) 13.1 SEC (9.7-13.0)
[2019-04-15 17:13] LABS: ACTIVATED PTT 34.7 SECONDS (25.2-36.5)
[2019-04-15 18:44] LABS: PLATELET COUNT 128 K/MM3 (134-434)
[2019-04-15] MEDS: ATORVASTATIN CA 20 MG TABLET (FP) PO SCH (21:38)
--- NOTE | 2019-04-15 22:01 | PN ---
Progress Note, Physician - Current Medication List Current Medications: Active Medications Acetaminophen (Tylenol -) 650 mg PO Q6H PRN PRN Reason: PAIN LEVEL 6-10 Last Admin: 04/14/19 21:30 Dose: 650 mg Allopurinol (Zyloprim -) 300 mg PO DAILY [facility] Last Admin: 04/15/19 09:50 Dose: 300 mg Aspirin (Asa -) 81 mg PO DAILY [facility] Last Admin: 04/15/19 09:50 Dose: 81 mg Atorvastatin Calcium (Lipitor -) 40 mg PO HS [facility] Last Admin: 04/15/19 21:38 Dose: 40 mg Clopidogrel Bisulfate (Plavix -) 75 mg PO DAILY [facility] Last Admin: 04/15/19 09:50 Dose: 75 mg Fluconazole (Diflucan -) 100 mg PO DAILY [facility] Last Admin: 04/15/19 09:50 Dose: 100 mg Heparin Sodium (Porcine) (Heparin -) 5,000 unit SQ BID [facility] Last Admin: 04/15/19 21:38 Dose: 5,000 unit Sodium Chloride (Normal Saline -) 1,000 mls @ 50 mls/hr IV ASDIR [facility] Stop: 04/16/19 16:12 Last Admin: 04/15/19 19:49 Dose: Not Given Levothyroxine Sodium (Synthroid -) 75 mcg PO DAILY@0700 [facility] Last Admin: 04/15/19 05:59 Dose: 75 mcg Nystatin (Nystop Powder -) 1 applic TP BID [facility] Last Admin: 04/15/19 21:38 Dose: 1 applic Pantoprazole Sodium (Protonix -) 40 mg PO DAILY [facility] Last Admin: 04/15/19 09:50 Dose: 40 mg Potassium Chloride (K-Dur -) 10 meq PO DAILY [facility] Last Admin: 04/15/19 09:50 Dose: 10 meq Valacyclovir HCl (Valtrex -) 500 mg PO DAILY [facility] Last Admin: 04/15/19 09:50 Dose: 500 mg - Objective Vital Signs: Vital Signs Temperature 99.1 F 04/15/19 18:46 Pulse Rate 73 04/15/19 18:46 Respiratory Rate 18 04/15/19 18:46 Blood Pressure 126/62 04/15/19 18:46 O2 Sat by Pulse Oximetry (%) 100 04/15/19 09:00 Labs: CBC, BMP 04/15/19 15:15 04/15/19 06:45 INR, PTT INR 1.11 (0.83-1.09) H 04/15/19 15:15
[2019-04-16 04:12] LABS: SERUM IRON SATURATION 23 % (15-55); TOTAL IRON BINDING CAPACITY 142 ug/dL (250-450); UIBC 109 ug/dL (118-369)
[2019-04-16] MEDS: LEVOTHYROXINE NA 75 MCG TABLET (FP) PO SCH (06:35)
[2019-04-16] MEDS: PANTOPRAZOLE 40 MG TABLET (FP) PO SCH (09:34)
[2019-04-16] MEDS: HEPARIN NA (PORCINE) 5,000 UNITS/ML 1ML VIAL SQ SCH ×2 (09:34→22:16)
[2019-04-16] MEDS: ESCITALOPRAM OXALATE 10 MG TABLET (FP) PO SCH (09:35)
[2019-04-16] MEDS: valACYclovir HCL 500 MG TABLET (FP) PO SCH (09:35)
[2019-04-16] MEDS: CLOPIDOGREL BISULFATE 75 MG TABLET (FP) PO SCH (09:35)
[2019-04-16] MEDS: POTASSIUM CHLORIDE TABS 10 MEQ TABLET.ER (FP) PO SCH (09:35)
[2019-04-16] MEDS: FLUCONAZOLE 100 MG TABLET (UD) PO SCH (09:35)
[2019-04-16] MEDS: ALLOPURINOL 300 MG TABLET (FP) PO SCH (09:35)
[2019-04-16] MEDS: ASPIRIN 81 MG CHEWABLE TABLETS PO SCH (09:35)
[2019-04-16] MEDS: NYSTATIN POWDER 100,000 UNITS/GM - 15 GM TOPICAL POWDER TP SCH ×2 (09:54→22:19)
--- NOTE | 2019-04-16 11:46 | PN ---
Progress Note (short form) - Note Progress Note: Problems 1. proteinuria 2. multiple myeloma 3. amyloid 4. syncope 5. hypotension 6. HLD 7. hypothyroidism 8. anemia 9. CKD 10. hypokalemia Active Medications Acetaminophen (Tylenol -) 650 mg PO Q6H PRN PRN Reason: PAIN LEVEL 6-10 Last Admin: 04/14/19 21:30 Dose: 650 mg Allopurinol (Zyloprim -) 300 mg PO DAILY [facility] Last Admin: 04/16/19 09:35 Dose: 300 mg Aspirin (Asa -) 81 mg PO DAILY [facility] Last Admin: 04/16/19 09:35 Dose: 81 mg Atorvastatin Calcium (Lipitor -) 40 mg PO HS [facility] Last Admin: 04/15/19 21:38 Dose: 40 mg Clopidogrel Bisulfate (Plavix -) 75 mg PO DAILY [facility] Last Admin: 04/16/19 09:35 Dose: 75 mg Escitalopram Oxalate (Lexapro -) 10 mg PO DAILY [facility] Last Admin: 04/16/19 09:35 Dose: 10 mg Fluconazole (Diflucan -) 100 mg PO DAILY [facility] Last Admin: 04/16/19 09:35 Dose: 100 mg Heparin Sodium (Porcine) (Heparin -) 5,000 unit SQ BID [facility] Last Admin: 04/16/19 09:34 Dose: 5,000 unit Sodium Chloride (Normal Saline -) 1,000 mls @ 50 mls/hr IV ASDIR [facility] Stop: 04/16/19 16:12 Last Admin: 04/15/19 19:49 Dose: Not Given Levothyroxine Sodium (Synthroid -) 75 mcg PO DAILY@0700 [facility] Last Admin: 04/16/19 06:35 Dose: 75 mcg Nystatin (Nystop Powder -) 1 applic TP BID [facility] Last Admin: 04/16/19 09:54 Dose: 1 applic Pantoprazole Sodium (Protonix -) 40 mg PO DAILY [facility] Last Admin: 04/16/19 09:34 Dose: 40 mg Potassium Chloride (K-Dur -) 10 meq PO DAILY [facility] Last Admin: 04/16/19 09:35 Dose: 10 meq Valacyclovir HCl (Valtrex -) 500 mg PO DAILY [facility] Last Admin: 04/16/19 09:35 Dose: 500 mg Last Vital Signs Temp Pulse Resp BP Pulse Ox 98.8 F 81 18 116/57 L 100 04/16/19 09:30 04/16/19 09:30 04/16/19 09:30 04/16/19 09:30 04/15/19 21:00 alert in nad denies sob or discomfort Lungs clear Heart reg Abd soft nontender ext no edema CBC, BMP 04/15/19 15:15 04/15/19 06:45
[2019-04-16] MEDS: ATORVASTATIN CA 20 MG TABLET (FP) PO SCH (22:16)
--- NOTE | 2019-04-16 23:52 | PN ---
Progress Note, Physician - Current Medication List Current Medications: Active Medications Acetaminophen (Tylenol -) 650 mg PO Q6H PRN PRN Reason: PAIN LEVEL 6-10 Last Admin: 04/14/19 21:30 Dose: 650 mg Allopurinol (Zyloprim -) 300 mg PO DAILY [facility] Last Admin: 04/16/19 09:35 Dose: 300 mg Aspirin (Asa -) 81 mg PO DAILY [facility] Last Admin: 04/16/19 09:35 Dose: 81 mg Atorvastatin Calcium (Lipitor -) 40 mg PO HS [facility] Last Admin: 04/16/19 22:16 Dose: 40 mg Clopidogrel Bisulfate (Plavix -) 75 mg PO DAILY [facility] Last Admin: 04/16/19 09:35 Dose: 75 mg Escitalopram Oxalate (Lexapro -) 10 mg PO DAILY [facility] Last Admin: 04/16/19 09:35 Dose: 10 mg Fluconazole (Diflucan -) 100 mg PO DAILY [facility] Last Admin: 04/16/19 09:35 Dose: 100 mg Heparin Sodium (Porcine) (Heparin -) 5,000 unit SQ BID [facility] Last Admin: 04/16/19 22:16 Dose: 5,000 unit Levothyroxine Sodium (Synthroid -) 75 mcg PO DAILY@0700 [facility] Last Admin: 04/16/19 06:35 Dose: 75 mcg Nystatin (Nystop Powder -) 1 applic TP BID [facility] Last Admin: 04/16/19 22:19 Dose: 1 applic Pantoprazole Sodium (Protonix -) 40 mg PO DAILY [facility] Last Admin: 04/16/19 09:34 Dose: 40 mg Potassium Chloride (K-Dur -) 10 meq PO DAILY [facility] Last Admin: 04/16/19 09:35 Dose: 10 meq Valacyclovir HCl (Valtrex -) 500 mg PO DAILY [facility] Last Admin: 04/16/19 09:35 Dose: 500 mg - Objective Vital Signs: Vital Signs Temperature 98.4 F 04/16/19 20:52 Pulse Rate 74 04/16/19 20:52 Respiratory Rate 20 04/16/19 20:52 Blood Pressure 140/70 04/16/19 20:52 O2 Sat by Pulse Oximetry (%) 100 04/16/19 20:52 Labs: CBC, BMP 04/15/19 15:15 04/15/19 06:45 INR, PTT INR 1.11 (0.83-1.09) H 04/15/19 15:15
[2019-04-17] MEDS: LEVOTHYROXINE NA 75 MCG TABLET (FP) PO SCH (06:04)
[2019-04-17] MEDS: ESCITALOPRAM OXALATE 10 MG TABLET (FP) PO SCH (09:37)
[2019-04-17] MEDS: PANTOPRAZOLE 40 MG TABLET (FP) PO SCH (09:37)
[2019-04-17] MEDS: ALLOPURINOL 300 MG TABLET (FP) PO SCH (09:37)
[2019-04-17] MEDS: HEPARIN NA (PORCINE) 5,000 UNITS/ML 1ML VIAL SQ SCH ×2 (09:37→22:02)
[2019-04-17] MEDS: FLUCONAZOLE 100 MG TABLET (UD) PO SCH (09:37)
[2019-04-17] MEDS: ASPIRIN 81 MG CHEWABLE TABLETS PO SCH (09:37)
[2019-04-17] MEDS: CLOPIDOGREL BISULFATE 75 MG TABLET (FP) PO SCH (09:37)
[2019-04-17] MEDS: valACYclovir HCL 500 MG TABLET (FP) PO SCH (09:37)
[2019-04-17] MEDS: POTASSIUM CHLORIDE TABS 10 MEQ TABLET.ER (FP) PO SCH (09:37)
[2019-04-17] MEDS: NYSTATIN POWDER 100,000 UNITS/GM - 15 GM TOPICAL POWDER TP SCH ×2 (09:38→22:03)
--- NOTE | 2019-04-17 18:30 | PN ---
Progress Note (short form) - Note Progress Note: Problems 1. proteinuria 2. multiple myeloma 3. amyloid 4. syncope 5. hypotension 6. HLD 7. hypothyroidism 8. anemia 9. CKD 10. hypokalemia Current Medications Acetaminophen (Tylenol -) 650 mg PO Q6H PRN PRN Reason: PAIN LEVEL 6-10 Last Admin: 04/14/19 21:30 Dose: 650 mg Allopurinol (Zyloprim -) 300 mg PO DAILY [facility] Last Admin: 04/17/19 09:37 Dose: 300 mg Aspirin (Asa -) 81 mg PO DAILY [facility] Last Admin: 04/17/19 09:37 Dose: 81 mg Atorvastatin Calcium (Lipitor -) 40 mg PO HS [facility] Last Admin: 04/16/19 22:16 Dose: 40 mg Clopidogrel Bisulfate (Plavix -) 75 mg PO DAILY [facility] Last Admin: 04/17/19 09:37 Dose: 75 mg Escitalopram Oxalate (Lexapro -) 10 mg PO DAILY [facility] Last Admin: 04/17/19 09:37 Dose: 10 mg Fluconazole (Diflucan -) 100 mg PO DAILY [facility] Last Admin: 04/17/19 09:37 Dose: 100 mg Heparin Sodium (Porcine) (Heparin -) 5,000 unit SQ BID [facility] Last Admin: 04/17/19 09:37 Dose: 5,000 unit Levothyroxine Sodium (Synthroid -) 75 mcg PO DAILY@0700 [facility] Last Admin: 04/17/19 06:04 Dose: 75 mcg Nystatin (Nystop Powder -) 1 applic TP BID [facility] Last Admin: 04/17/19 09:38 Dose: 1 applic Pantoprazole Sodium (Protonix -) 40 mg PO DAILY [facility] Last Admin: 04/17/19 09:37 Dose: 40 mg Potassium Chloride (K-Dur -) 10 meq PO DAILY [facility] Last Admin: 04/17/19 09:37 Dose: 10 meq Valacyclovir HCl (Valtrex -) 500 mg PO DAILY [facility] Last Admin: 04/17/19 09:37 Dose: 500 mg Last Vital Signs Temp Pulse Resp BP Pulse Ox 98.2 F 84 18 123/59 L 99 04/17/19 05:27 04/17/19 05:27 04/17/19 05:27 04/17/19 05:27 04/17/19 09:00 alert in nad denies sob or discomfort Lungs clear Heart reg Abd soft nontender ext no edema CBC, BMP 04/15/19 15:15 04/15/19 06:45 IMP DEBBIE CKD Plan- continue present rx
--- NOTE | 2019-04-17 20:08 | PN ---
Progress Note, Physician History of Present Illness: Pt complains of odorous discharge from rt ear and B/L discharge/tearin from eyes - Current Medication List Current Medications: Active Medications Acetaminophen (Tylenol -) 650 mg PO Q6H PRN PRN Reason: PAIN LEVEL 6-10 Last Admin: 04/14/19 21:30 Dose: 650 mg Allopurinol (Zyloprim -) 300 mg PO DAILY [facility] Last Admin: 04/17/19 09:37 Dose: 300 mg Aspirin (Asa -) 81 mg PO DAILY [facility] Last Admin: 04/17/19 09:37 Dose: 81 mg Atorvastatin Calcium (Lipitor -) 40 mg PO HS [facility] Last Admin: 04/16/19 22:16 Dose: 40 mg Clopidogrel Bisulfate (Plavix -) 75 mg PO DAILY [facility] Last Admin: 04/17/19 09:37 Dose: 75 mg Escitalopram Oxalate (Lexapro -) 10 mg PO DAILY [facility] Last Admin: 04/17/19 09:37 Dose: 10 mg Fluconazole (Diflucan -) 100 mg PO DAILY [facility] Last Admin: 04/17/19 09:37 Dose: 100 mg Heparin Sodium (Porcine) (Heparin -) 5,000 unit SQ BID [facility] Last Admin: 04/17/19 09:37 Dose: 5,000 unit Levothyroxine Sodium (Synthroid -) 75 mcg PO DAILY@0700 [facility] Last Admin: 04/17/19 06:04 Dose: 75 mcg Nystatin (Nystop Powder -) 1 applic TP BID [facility] Last Admin: 04/17/19 09:38 Dose: 1 applic Pantoprazole Sodium (Protonix -) 40 mg PO DAILY [facility] Last Admin: 04/17/19 09:37 Dose: 40 mg Potassium Chloride (K-Dur -) 10 meq PO DAILY [facility] Last Admin: 04/17/19 09:37 Dose: 10 meq Valacyclovir HCl (Valtrex -) 500 mg PO DAILY [facility] Last Admin: 04/17/19 09:37 Dose: 500 mg - Objective Vital Signs: Vital Signs Temperature 98.2 F 04/17/19 05:27 Pulse Rate 84 04/17/19 05:27 Respiratory Rate 18 04/17/19 05:27 Blood Pressure 123/59 L 04/17/19 05:27 O2 Sat by Pulse Oximetry (%) 99 04/17/19 09:00 Constitutional: Yes: Anxious Neck: Yes: WNL, Supple Cardiovascular: Yes: WNL, Regular Rate and Rhythm Respiratory: Yes: WNL, Regular, CTA Bilaterally Gastrointestinal: Yes: WNL, Normal Bowel Sounds, Soft Labs: CBC, BMP 04/15/19 15:15 04/15/19 06:45 INR, PTT INR 1.11 (0.83-1.09) H 04/15/19 15:15 Problem List - Problems (1) Otitis externa Assessment/Plan: Will start IV vanco/cefepime ID/ENT consults Code(s): H60.90 - UNSPECIFIED OTITIS EXTERNA, UNSPECIFIED EAR Qualifiers: Otitis externa type: unspecified type Chronicity: acute Laterality: right Qualified Code(s): H60.501 - Unspecified acute noninfective otitis externa, right ear (2) Multiple myeloma Assessment/Plan: As per onco Code(s): C90.00 - MULTIPLE MYELOMA NOT HAVING ACHIEVED REMISSION Qualifiers: Multiple myeloma remission status: not in remission Qualified Code(s): C90.00 - Multiple myeloma not having achieved remission (3) HTN (hypertension) Assessment/Plan: BP meds on hold due to orthostatic hypotension Code(s): I10 - ESSENTIAL (PRIMARY) HYPERTENSION Qualifiers: Hypertension type: unspecified Qualified Code(s): I10 - Essential (primary ) hypertension (4) Conjunctivitis Assessment/Plan: Start tobraycin ophthalmologic drops Code(s): H10.9 - UNSPECIFIED CONJUNCTIVITIS (5) Syncope Assessment/Plan: Pt w/ orthostatic hypotension Echo showed normal EF DC tele As per cardio Code(s): R55 - SYNCOPE AND COLLAPSE (6) Depression Assessment/Plan: Cont lexapro Psych consult pending Code(s): F32.9 - MAJOR DEPRESSIVE DISORDER, SINGLE EPISODE, UNSPECIFIED (7) Anemia Assessment/Plan: Multifactorial Code(s): D64.9 - ANEMIA, UNSPECIFIED Qualifiers: Chronic kidney disease stage: unspecified stage (8) CAD (coronary artery disease) Code(s): I25.10 - ATHSCL HEART DISEASE OF [place] CORONARY ARTERY W/O ANG PCTRS Qualifiers: (9) CHF (congestive heart failure) Assessment/Plan: Diuretics on hold due to hypotension Code(s): I50.9 - HEART FAILURE, UNSPECIFIED Qualifiers: Heart failure type: systolic Heart failure chronicity: unspecified Qualified Code(s): I50.20 - Unspecified systolic (congestive) heart failure (10) CKD (chronic kidney disease) Code(s): N18.9 - CHRONIC KIDNEY DISEASE, UNSPECIFIED (11) HLD (hyperlipidemia) Assessment/Plan: Cont lipitor Code(s): E78.5 - HYPERLIPIDEMIA, UNSPECIFIED Qualifiers: Hyperlipidemia type: unspecified Qualified Code(s): E78.5 - Hyperlipidemia , unspecified (12) Hypothyroidism Assessment/Plan: Cont levothyroxine Code(s): E03.9 - HYPOTHYROIDISM, UNSPECIFIED Qualifiers: Hypothyroidism type: acquired Qualified Code(s): E03.9 - Hypothyroidism, unspecified (13) PAF (paroxysmal atrial fibrillation) Assessment/Plan: No AC due to h/o rectal bleeding/rectal polyps Heart rate controlled Code(s): I48.0 - PAROXYSMAL ATRIAL FIBRILLATION
[2019-04-17] MEDS ORDERED: CEFEPIME HCL 1 GM VIAL (RESTRICTED TO ID) ONE (21:55)
[2019-04-17] MEDS ORDERED: DEXTROSE 5%-WATER 100 ML IVPB ONE (21:56)
[2019-04-17] MEDS: ATORVASTATIN CA 20 MG TABLET (FP) PO SCH (22:02)
[2019-04-17] MEDS: CEFEPIME 1 GM in DEXTROSE 5%-WATER 100 ML IVPB SCH (22:02)
[2019-04-17] MEDS: VANCOMYCIN 1 GM in D5W (PRE-DOCKED) 1,000 MG/250 ML IVPB SCH (22:03)
[2019-04-17] MEDS: TOBRAMYCIN 0.3% OPHTH SOLN 5 ML BOTTLE OD SCH (22:03)
[2019-04-18] MEDS: TOBRAMYCIN 0.3% OPHTH SOLN 5 ML BOTTLE OD SCH ×3 (05:32→21:39)
[2019-04-18] MEDS: LEVOTHYROXINE NA 75 MCG TABLET (FP) PO SCH (06:08)
[2019-04-18 06:56] LABS: BASO % 0.6 % (0-2.0); HEMATOCRIT 28.4 % (32.4-45.2); HEMOGLOBIN 9.6 GM/dL (10.7-15.3); LYMPH % 27.6 % (8-40); MCH 32.4 pg (25.7-33.7); MCHC 33.9 g/dl (32.0-36.0); MEAN CELL VOLUME 95.8 fl (80-96); MEAN PLT VOLUME 8.9 fl (7.5-11.1); MONO % 18.3 % (3.8-10.2); NEUT % 53.5 % (42.8-82.8); RBC 2.97 M/mm3 (3.60-5.2); RDW 17.2 % (11.6-15.6); WHITE BLOOD COUNT 3.5 K/mm3 (4.0-10.0)
[2019-04-18 07:23] LABS: ALBUMIN 1.6 g/dl (3.4-5.0); BILIRUBIN,TOTAL 0.4 mg/dL (0.2-1); BLOOD UREA NITROGEN 14.4 mg/dL (7-18); CALCIUM 8.2 mg/dL (8.5-10.1); CREATININE 0.7 mg/dL (0.55-1.3); POTASSIUM 4.1 mmol/L (3.5-5.1); TOT PROT 5.5 g/dl (6.4-8.2)
--- NOTE | 2019-04-18 08:29 | PN ---
Progress Note, Physician History of Present Illness: The patient is a 74-year-old female, with a past medical history of HTN, HLD, [place] , CHF, multiple myeloma (on Velcade and Revlamide), who presents to the ED s/p 2 syncopal episodes today. The patient was having blood drawn during a routine visit with her oncologist when she suddenly became dizzy and lightheaded and subsequently lost consciousness. Patient was seated when she lost consciousness. Denies any head trauma. Rapid response was called and upon arrival of the ED team, the patient was witnessed to have another syncopal episode. Patient does not recall the incident. She denies ever having CP/SOB/ palpitations. Denies F/C. Had one episode of diarrhea this morning, no vomiting. Denies abdominal pain. PMH h/o CAD (NSTEMI; s/p HOLLY D1), Chronic systolic CHF, mildly reduced LV function with EF 45%, HTN, Hyperlipidemia,depression, Asthma, hiatal hernia, rectal polyp , Renal Insufficiency, proteinuria, Multiple Myeloma on velcade/decadron, revlamide, anemia, ?gout, and Hypothyroidism, - Current Medication List Current Medications: Active Medications Acetaminophen (Tylenol -) 650 mg PO Q6H PRN PRN Reason: PAIN LEVEL 6-10 Last Admin: 04/14/19 21:30 Dose: 650 mg Allopurinol (Zyloprim -) 300 mg PO DAILY [facility] Last Admin: 04/17/19 09:37 Dose: 300 mg Aspirin (Asa -) 81 mg PO DAILY [facility] Last Admin: 04/17/19 09:37 Dose: 81 mg Atorvastatin Calcium (Lipitor -) 40 mg PO HS [facility] Last Admin: 04/17/19 22:02 Dose: 40 mg Clopidogrel Bisulfate (Plavix -) 75 mg PO DAILY [facility] Last Admin: 04/17/19 09:37 Dose: 75 mg Escitalopram Oxalate (Lexapro -) 10 mg PO DAILY [facility] Last Admin: 04/17/19 09:37 Dose: 10 mg Fluconazole (Diflucan -) 100 mg PO DAILY [facility] Last Admin: 04/17/19 09:37 Dose: 100 mg Heparin Sodium (Porcine) (Heparin -) 5,000 unit SQ BID [facility] Last Admin: 04/17/19 22:02 Dose: 5,000 unit Cefepime HCl (Maxipime 1 Gm Premix Ivpb) 1 gm in 50 mls @ 100 mls/hr IVPB BID [facility]; Protocol Cefepime HCl 1 gm/ Dextrose 100 mls @ 200 mls/hr IVPB BID [facility]; Protocol Stop: 04/18/19 10:29 Last Admin: 04/17/19 22:02 Dose: 200 mls/hr Levothyroxine Sodium (Synthroid -) 75 mcg PO DAILY@0700 [facility] Last Admin: 04/18/19 06:08 Dose: 75 mcg Nystatin (Nystop Powder -) 1 applic TP BID [facility] Last Admin: 04/17/19 22:03 Dose: 1 applic Pantoprazole Sodium (Protonix -) 40 mg PO DAILY [facility] Last Admin: 04/17/19 09:37 Dose: 40 mg Potassium Chloride (K-Dur -) 10 meq PO DAILY [facility] Last Admin: 04/17/19 09:37 Dose: 10 meq Tobramycin Sulfate (Tobrex Ophthalmic Solution -) 1 drop OD TID [facility] Last Admin: 04/18/19 05:32 Dose: 1 drop Valacyclovir HCl (Valtrex -) 500 mg PO DAILY [facility] Last Admin: 04/17/19 09:37 Dose: 500 mg Vancomycin HCl (Vancomycin (Pre-Docked)) 1,000 mg IVPB BID [facility]; Protocol Vancomycin HCl (Vancomycin (Pre-Docked)) 1,000 mg IVPB BID [facility]; Protocol Stop: 04/18/19 10:01 Last Admin: 04/17/19 22:03 Dose: 1,000 mg - Objective Vital Signs: Vital Signs Temperature 98.8 F 04/18/19 06:00 Pulse Rate 87 04/18/19 06:00 Respiratory Rate 18 04/18/19 06:00 Blood Pressure 133/69 04/18/19 06:00 O2 Sat by Pulse Oximetry (%) 98 04/17/19 21:00 Eyes: Yes: WNL, Conjunctiva Clear, EOM Intact HENT: Yes: WNL, Atraumatic, Normocephalic Neck: Yes: WNL, Supple, Trachea Midline Cardiovascular: Yes: WNL, Regular Rate and Rhythm Respiratory: Yes: WNL, Regular, CTA Bilaterally Gastrointestinal: Yes: WNL, Normal Bowel Sounds Genitourinary: Yes: WNL Musculoskeletal: Yes: WNL Extremities: Yes: WNL Edema: No Integumentary: Yes: WNL Neurological: Yes: WNL, Alert, Oriented ...Motor Strength: WNL Psychiatric: Yes: WNL Labs: CBC, BMP 04/18/19 05:40 04/18/19 05:40 INR, PTT INR 1.11 (0.83-1.09) H 04/15/19 15:15 Problem List - Problems (1) Syncope Code(s): R55 - SYNCOPE AND COLLAPSE (2) CINTIA positive Code(s): R76.8 - OTHER SPECIFIED ABNORMAL IMMUNOLOGICAL FINDINGS IN SERUM (3) ASHD (arteriosclerotic heart disease) Code(s): I25.10 - ATHSCL HEART DISEASE OF [place] CORONARY ARTERY W/O ANG PCTRS (4) Abnormal ECG Code(s): R94.31 - ABNORMAL ELECTROCARDIOGRAM [ECG] [EKG] (5) Acute exacerbation of CHF (congestive heart failure) Code(s): I50.9 - HEART FAILURE, UNSPECIFIED (6) Acute on chronic renal failure Code(s): N17.9 - ACUTE KIDNEY FAILURE, UNSPECIFIED; N18.9 - CHRONIC KIDNEY DISEASE, UNSPECIFIED Qualifiers: Chronic kidney disease stage: stage 2 (mild) (7) Acute on chronic systolic CHF (congestive heart failure) Code(s): I50.23 - ACUTE ON CHRONIC SYSTOLIC (CONGESTIVE) HEART FAILURE (8) Acute respiratory failure Code(s): J96.00 - ACUTE RESPIRATORY FAILURE, UNSP W HYPOXIA OR HYPERCAPNIA (9) Adult onset hypothyroidism Code(s): E03.8 - OTHER SPECIFIED HYPOTHYROIDISM (10) Anemia Code(s): D64.9 - ANEMIA, UNSPECIFIED (11) Anemia Code(s): D64.9 - ANEMIA, UNSPECIFIED Qualifiers: Chronic kidney disease stage: unspecified stage (12) Anemia Code(s): D64.9 - ANEMIA, UNSPECIFIED Qualifiers: Anemia type: unspecified type Qualified Code(s): D64.9 - Anemia, unspecified (13) Anemia Code(s): D64.9 - ANEMIA, UNSPECIFIED Qualifiers: Chronic kidney disease stage: unspecified stage (14) Anxiety Code(s): F41.9 - ANXIETY DISORDER, UNSPECIFIED (15) Asymptomatic bacteriuria Code(s): R82.71 - BACTERIURIA (16) CAD (coronary artery disease) Code(s): I25.10 - ATHSCL HEART DISEASE OF [place] CORONARY ARTERY W/O ANG PCTRS Qualifiers: (17) CHF (congestive heart failure) Code(s): I50.9 - HEART FAILURE, UNSPECIFIED Qualifiers: Heart failure type: systolic Heart failure chronicity: unspecified Qualified Code(s): I50.20 - Unspecified systolic (congestive) heart failure (18) CKD (chronic kidney disease) Code(s): N18.9 - CHRONIC KIDNEY DISEASE, UNSPECIFIED (19) Chest pain Code(s): R07.9 - CHEST PAIN, UNSPECIFIED Qualifiers: Chest pain type: unspecified Qualified Code(s): R07.9 - Chest pain, unspecified (20) Cough Code(s): R05 - COUGH (21) Dehydration Code(s): E86.0 - DEHYDRATION (22) Diarrhea Code(s): R19.7 - [place]A, UNSPECIFIED Qualifiers: Diarrhea type: unspecified type Qualified Code(s): R19.7 - Diarrhea, unspecified (23) Diarrhea Code(s): R19.7 - DIARR[place]A, UNSPECIFIED Qualifiers: Diarrhea type: unspecified type Qualified Code(s): R19.7 - Diarrhea, unspecified (24) Dizziness Code(s): R42 - DIZZINESS AND GIDDINESS (25) Elevated troponin Code(s): R74.8 - ABNORMAL LEVELS OF OTHER SERUM ENZYMES (26) Elevated troponin Code(s): R74.8 - ABNORMAL LEVELS OF OTHER SERUM ENZYMES (27) Elevated troponin I level Code(s): R74.8 - ABNORMAL LEVELS OF OTHER SERUM ENZYMES (28) Facial swelling Code(s): R22.0 - LOCALIZED SWELLING, MASS AND LUMP, HEAD (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 - HEREDITARY DEFICIENCY OF OTHER CLOTTING FACTORS (30) Fever Code(s): R50.9 - FEVER, UNSPECIFIED (31) Gastric wall thickening Code(s): K31.89 - OTHER DISEASES OF STOMACH AND DUODENUM (32) HLD (hyperlipidemia) Code(s): E78.5 - HYPERLIPIDEMIA, UNSPECIFIED Qualifiers: Hyperlipidemia type: unspecified Qualified Code(s): E78.5 - Hyperlipidemia , unspecified (33) HTN (hypertension) Code(s): I10 - ESSENTIAL (PRIMARY) HYPERTENSION Qualifiers: Hypertension type: unspecified Qualified Code(s): I10 - Essential (primary ) hypertension (34) Headache Code(s): R51 - HEADACHE (35) History of heart artery stent Code(s): Z95.5 - PRESENCE OF CORONARY ANGIOPLASTY IMPLANT AND GRAFT (36) Hypoalbuminemia Code(s): E88.09 - OTH DISORDERS OF PLASMA-PROTEIN METABOLISM, NEC (37) Hypotension Code(s): I95.9 - HYPOTENSION, UNSPECIFIED Qualifiers: Hypotension type: other hypotension type Qualified Code(s): I95.89 - Other hypotension (38) Hypothyroidism Code(s): E03.9 - HYPOTHYROIDISM, UNSPECIFIED Qualifiers: Hypothyroidism type: acquired Qualified Code(s): E03.9 - Hypothyroidism, unspecified (39) Hypothyroidism Code(s): E03.9 - HYPOTHYROIDISM, UNSPECIFIED (40) Lichen amyloidosus Code(s): E85.4 - ORGAN-LIMITED AMYLOIDOSIS; L99 - OTH DISORDERS OF SKIN, SUBCU IN DISEASES CLASSD ELSWHR (41) Loss of appetite Code(s): R63.0 - ANOREXIA (42) Multiple myeloma Code(s): C90.00 - MULTIPLE MYELOMA NOT HAVING ACHIEVED REMISSION Qualifiers: Multiple myeloma remission status: not in remission Qualified Code(s): C90.00 - Multiple myeloma not having achieved remission (43) Multiple myeloma Code(s): C90.00 - MULTIPLE MYELOMA NOT HAVING ACHIEVED REMISSION Qualifiers: Multiple myeloma remission status: not in remission Qualified Code(s): C90.00 - Multiple myeloma not having achieved remission (44) Multiple myeloma Code(s): C90.00 - MULTIPLE MYELOMA NOT HAVING ACHIEVED REMISSION (45) Multiple myeloma Code(s): C90.00 - MULTIPLE MYELOMA NOT HAVING ACHIEVED REMISSION (46) Otitis Code(s): H66.90 - OTITIS MEDIA, UNSPECIFIED, UNSPECIFIED EAR (47) Otitis externa Code(s): H60.90 - UNSPECIFIED OTITIS EXTERNA, UNSPECIFIED EAR Qualifiers: Otitis externa type: unspecified type Chronicity: acute Laterality: right Qualified Code(s): H60.501 - Unspecified acute noninfective otitis externa, right ear (48) Otitis media with rupture of tympanic membrane Code(s): H66.90 - OTITIS MEDIA, UNSPECIFIED, UNSPECIFIED EAR; H72.90 - UNSP PERFORATION OF TYMPANIC MEMBRANE, UNSPECIFIED EAR Qualifiers: Laterality: right Qualified Code(s): H66.91 - Otitis media, unspecified, right ear; H72.91 - Unspecified perforation of tympanic membrane, right ear (49) PAF (paroxysmal atrial fibrillation) Code(s): I48.0 - PAROXYSMAL ATRIAL FIBRILLATION (50) PHT (pulmonary hypertension) Code(s): I27.20 - PULMONARY HYPERTENSION, UNSPECIFIED (51) Penicillin allergy Code(s): Z88.0 - ALLERGY STATUS TO PENICILLIN (52) Pressure ulcer of sacral region, stage 1 Code(s): L89.151 - PRESSURE ULCER OF SACRAL REGION, STAGE 1 (53) Proteinuria Code(s): R80.9 - PROTEINURIA, UNSPECIFIED Qualifiers: Proteinuria type: persistent Qualified Code(s): R80.1 - Persistent proteinuria, unspecified (54) Rectal bleed Code(s): K62.5 - HEMORRHAGE OF ANUS AND RECTUM (55) Rectal pain Code(s): K62.89 - OTHER SPECIFIED DISEASES OF ANUS AND RECTUM (56) Renal dysfunction Code(s): N28.9 - DISORDER OF KIDNEY AND URETER, UNSPECIFIED (57) Respiratory insufficiency Code(s): R06.89 - OTHER ABNORMALITIES OF BREATHING (58) Troponin I above reference range Code(s): R74.8 - ABNORMAL LEVELS OF OTHER SERUM ENZYMES (59) Vomiting Code(s): R11.10 - VOMITING, UNSPECIFIED Qualifiers: Vomiting type: unspecified Vomiting Intractability: unspecified Nausea presence: unspecified Qualified Code(s): R11.10 - Vomiting, unspecified (60) Weakness Code(s): R53.1 - WEAKNESS (61) Weight loss Code(s): R63.4 - ABNORMAL WEIGHT LOSS Assessment/Plan syncope during steroid infusion for MM hypotension h/o CAD (NSTEMI; s/p HOLLY D1), Chronic systolic CHF, mildly reduced LV function with EF 45%, HTN, Hyperlipidemia,depression, Asthma, hiatal hernia, rectal polyp , Renal Insufficiency, proteinuria, Multiple Myeloma on velcade/decadron, revlamide, anemia, ?gout, and Hypothyroidism, ekg nsr lvh echo nl ef BP stable of meds cont abx for otitis externa will f/u
[2019-04-18 08:30] LABS: PLATELET COUNT 175 K/MM3 (134-434)
--- NOTE | 2019-04-18 09:46 | PN ---
Progress Note, Physician History of Present Illness: Pt seen and examined at bedside. She is awake and alert. She denies shortness of breath. - Current Medication List Current Medications: Active Medications Acetaminophen (Tylenol -) 650 mg PO Q6H PRN PRN Reason: PAIN LEVEL 6-10 Last Admin: 04/14/19 21:30 Dose: 650 mg Allopurinol (Zyloprim -) 300 mg PO DAILY [facility] Last Admin: 04/17/19 09:37 Dose: 300 mg Aspirin (Asa -) 81 mg PO DAILY [facility] Last Admin: 04/17/19 09:37 Dose: 81 mg Atorvastatin Calcium (Lipitor -) 40 mg PO HS [facility] Last Admin: 04/17/19 22:02 Dose: 40 mg Clopidogrel Bisulfate (Plavix -) 75 mg PO DAILY [facility] Last Admin: 04/17/19 09:37 Dose: 75 mg Escitalopram Oxalate (Lexapro -) 10 mg PO DAILY [facility] Last Admin: 04/17/19 09:37 Dose: 10 mg Fluconazole (Diflucan -) 100 mg PO DAILY [facility] Last Admin: 04/17/19 09:37 Dose: 100 mg Heparin Sodium (Porcine) (Heparin -) 5,000 unit SQ BID [facility] Last Admin: 04/17/19 22:02 Dose: 5,000 unit Cefepime HCl (Maxipime 1 Gm Premix Ivpb) 1 gm in 50 mls @ 100 mls/hr IVPB BID [facility]; Protocol Cefepime HCl 1 gm/ Dextrose 100 mls @ 200 mls/hr IVPB BID [facility]; Protocol Stop: 04/18/19 10:29 Last Admin: 04/17/19 22:02 Dose: 200 mls/hr Levothyroxine Sodium (Synthroid -) 75 mcg PO DAILY@0700 [facility] Last Admin: 04/18/19 06:08 Dose: 75 mcg Nystatin (Nystop Powder -) 1 applic TP BID [facility] Last Admin: 04/17/19 22:03 Dose: 1 applic Pantoprazole Sodium (Protonix -) 40 mg PO DAILY [facility] Last Admin: 04/17/19 09:37 Dose: 40 mg Potassium Chloride (K-Dur -) 10 meq PO DAILY [facility] Last Admin: 04/17/19 09:37 Dose: 10 meq Tobramycin Sulfate (Tobrex Ophthalmic Solution -) 1 drop OD TID [facility] Last Admin: 04/18/19 05:32 Dose: 1 drop Valacyclovir HCl (Valtrex -) 500 mg PO DAILY [facility] Last Admin: 04/17/19 09:37 Dose: 500 mg Vancomycin HCl (Vancomycin (Pre-Docked)) 1,000 mg IVPB BID [facility]; Protocol Vancomycin HCl (Vancomycin (Pre-Docked)) 1,000 mg IVPB BID [facility]; Protocol Stop: 04/18/19 10:01 Last Admin: 04/17/19 22:03 Dose: 1,000 mg - Objective Vital Signs: Vital Signs Temperature 98.8 F 04/18/19 06:00 Pulse Rate 87 04/18/19 06:00 Respiratory Rate 18 04/18/19 06:00 Blood Pressure 133/69 04/18/19 06:00 O2 Sat by Pulse Oximetry (%) 98 04/17/19 21:00 Constitutional: Yes: Calm Eyes: Yes: Conjunctiva Clear HENT: Yes: Atraumatic Cardiovascular: Yes: S1, S2 Respiratory: Yes: CTA Bilaterally Gastrointestinal: Yes: Soft Genitourinary: Yes: WNL Musculoskeletal: Yes: WNL Edema: No Neurological: Yes: Oriented Psychiatric: Yes: Oriented Labs: CBC, BMP 04/18/19 05:40 04/18/19 05:40 INR, PTT INR 1.11 (0.83-1.09) H 04/15/19 15:15 Problem List - Problems (1) Hypokalemia Code(s): E87.6 - HYPOKALEMIA Assessment/Plan Current Medications Generic Name Dose Route Start Last Admin Trade Name Freq PRN Reason Stop Dose Admin Acetaminophen 650 mg 04/14/19 22:01 04/14/19 21:30 Tylenol - PO 650 mg Q6H PRN Administration PAIN LEVEL 6-10 Allopurinol 300 mg 04/14/19 10:00 04/17/19 09:37 Zyloprim - PO 300 mg DAILY [facility] Administration Aspirin 81 mg 04/14/19 10:00 04/17/19 09:37 Asa - PO 81 mg DAILY [facility] Administration Atorvastatin Calcium 40 mg 04/13/19 22:00 04/17/19 22:02 Lipitor - PO 40 mg HS [facility] Administration Clopidogrel Bisulfate 75 mg 04/14/19 10:00 04/17/19 09:37 Plavix - PO 75 mg DAILY [facility] Administration Escitalopram Oxalate 10 mg 04/16/19 10:00 04/17/19 09:37 Lexapro - PO 10 mg DAILY [facility] Administration Fluconazole 100 mg 04/14/19 22:00 04/17/19 09:37 Diflucan - PO 100 mg DAILY [facility] Administration Heparin Sodium (Porcine) 5,000 unit 04/13/19 22:00 04/17/19 22:02 Heparin - SQ 5,000 unit BID [facility] Administration Cefepime HCl 1 gm in 50 mls @ 100 mls/hr 04/17/19 22:00 Maxipime 1 Gm Premix Ivpb IVPB BID [facility] Protocol Cefepime HCl 1 gm/ Dextrose 100 mls @ 200 mls/hr 04/17/19 22:00 04/17/19 22: 02 IVPB 04/18/19 10:29 200 mls/hr BID [facility] Administration Protocol Levothyroxine Sodium 75 mcg 04/14/19 07:00 04/18/19 06:08 Synthroid - PO 75 mcg DAILY@0700 [facility] Administration Nystatin 1 applic 04/14/19 22:00 04/17/19 22:03 Nystop Powder - TP 1 applic BID [facility] Administration Pantoprazole Sodium 40 mg 04/14/19 10:00 04/17/19 09:37 Protonix - PO 40 mg DAILY [facility] Administration Potassium Chloride 10 meq 04/14/19 10:00 04/17/19 09:37 K-Dur - PO 10 meq DAILY [facility] Administration Tobramycin Sulfate 1 drop 04/17/19 22:00 04/18/19 05:32 Tobrex Ophthalmic Solution - OD 1 drop TID [facility] Administration Valacyclovir HCl 500 mg 04/14/19 10:00 04/17/19 09:37 Valtrex - PO 500 mg DAILY [facility] Administration Vancomycin HCl 1,000 mg 04/17/19 22:00 Vancomycin (Pre-Docked) IVPB BID [facility] Protocol Vancomycin HCl 1,000 mg 04/17/19 22:00 04/17/19 22:03 Vancomycin (Pre-Docked) IVPB 04/18/19 10:01 1,000 mg BID [facility] Administration Protocol Impression 1. proteinuria 2. multiple myeloma 3. amyloid 4. syncope 5. hypotension 6. HLD 7. hypothyroidism 8. anemia 9. CKD 10. hypokalemia Plan - renal function is stable - monitor bp - monitor volume status off of diuretics - psych eval - will follow PRN
[2019-04-18] MEDS ORDERED: CEFEPIME HCL 1 GM VIAL (RESTRICTED TO ID) ONE (10:05)
[2019-04-18] MEDS ORDERED: PT OWN MED DRAWER 7, Y5N ONE ×2 (10:05→19:10)
[2019-04-18] MEDS ORDERED: DEXTROSE 5%-WATER 100 ML IVPB ONE (10:06)
[2019-04-18] MEDS: CLOPIDOGREL BISULFATE 75 MG TABLET (FP) PO SCH (10:11)
[2019-04-18] MEDS: ALLOPURINOL 300 MG TABLET (FP) PO SCH (10:11)
[2019-04-18] MEDS: ASPIRIN 81 MG CHEWABLE TABLETS PO SCH (10:11)
[2019-04-18] MEDS: ESCITALOPRAM OXALATE 10 MG TABLET (FP) PO SCH (10:11)
[2019-04-18] MEDS: PANTOPRAZOLE 40 MG TABLET (FP) PO SCH (10:11)
[2019-04-18] MEDS: POTASSIUM CHLORIDE TABS 10 MEQ TABLET.ER (FP) PO SCH (10:11)
[2019-04-18] MEDS: valACYclovir HCL 500 MG TABLET (FP) PO SCH (10:11)
[2019-04-18] MEDS: FLUCONAZOLE 100 MG TABLET (UD) PO SCH (10:11)
[2019-04-18] MEDS: HEPARIN NA (PORCINE) 5,000 UNITS/ML 1ML VIAL SQ SCH ×2 (10:12→21:38)
[2019-04-18] MEDS: NYSTATIN POWDER 100,000 UNITS/GM - 15 GM TOPICAL POWDER TP SCH ×2 (10:16→21:40)
[2019-04-18] MEDS: CEFEPIME 1 GM in DEXTROSE 5%-WATER 100 ML IVPB SCH (10:28)
[2019-04-18] MEDS: VANCOMYCIN 1 GM in D5W (PRE-DOCKED) 1,000 MG/250 ML IVPB SCH ×2 (10:50→20:35)
--- NOTE | 2019-04-18 11:15 | PN ---
Progress Note, Physician Chief Complaint: Pt A&Ox3; periods of depression (now on Lexapro). No chest pain, except at site of left skin tear under left breast. Generally weak. History of Present Illness: The patient is a 74-year-old black female, with a past medical history of HTN, HLD, NC, diastolic CHF, multiple myeloma (on Velcade and Revlamide), severe depression (was on Paxil), who presents to the ED s/p 2 syncopal episodes on day of admission. The patient was having blood drawn during a routine visit with her oncologist when she suddenly became dizzy and lightheaded and subsequently lost consciousness. Patient was seated when she lost consciousness. Denies any head trauma. Rapid response was called and upon arrival of the ED team, the patient was witnessed to have another syncopal episode. Patient does not recall the incident. She denies ever having CP/SOB/ palpitations. Denies F/C. Had one episode of diarrhea this morning, no vomiting. Denies abdominal pain. - Current Medication List Current Medications: Active Medications Acetaminophen (Tylenol -) 650 mg PO Q6H PRN PRN Reason: PAIN LEVEL 6-10 Last Admin: 04/14/19 21:30 Dose: 650 mg Allopurinol (Zyloprim -) 300 mg PO DAILY [facility] Last Admin: 04/18/19 10:11 Dose: 300 mg Aspirin (Asa -) 81 mg PO DAILY [facility] Last Admin: 04/18/19 10:11 Dose: 81 mg Atorvastatin Calcium (Lipitor -) 40 mg PO HS [facility] Last Admin: 04/17/19 22:02 Dose: 40 mg Clopidogrel Bisulfate (Plavix -) 75 mg PO DAILY [facility] Last Admin: 04/18/19 10:11 Dose: 75 mg Escitalopram Oxalate (Lexapro -) 10 mg PO DAILY [facility] Last Admin: 04/18/19 10:11 Dose: 10 mg Fluconazole (Diflucan -) 100 mg PO DAILY [facility] Last Admin: 04/18/19 10:11 Dose: 100 mg Heparin Sodium (Porcine) (Heparin -) 5,000 unit SQ BID [facility] Last Admin: 04/18/19 10:12 Dose: 5,000 unit Cefepime HCl (Maxipime 1 Gm Premix Ivpb) 1 gm in 50 mls @ 100 mls/hr IVPB BID [facility]; Protocol Levothyroxine Sodium (Synthroid -) 75 mcg PO DAILY@0700 [facility] Last Admin: 04/18/19 06:08 Dose: 75 mcg Nystatin (Nystop Powder -) 1 applic TP BID [facility] Last Admin: 04/18/19 10:16 Dose: 1 applic Pantoprazole Sodium (Protonix -) 40 mg PO DAILY [facility] Last Admin: 04/18/19 10:11 Dose: 40 mg Potassium Chloride (K-Dur -) 10 meq PO DAILY [facility] Last Admin: 04/18/19 10:11 Dose: 10 meq Tobramycin Sulfate (Tobrex Ophthalmic Solution -) 1 drop OD TID [facility] Last Admin: 04/18/19 05:32 Dose: 1 drop Valacyclovir HCl (Valtrex -) 500 mg PO DAILY [facility] Last Admin: 04/18/19 10:11 Dose: 500 mg Vancomycin HCl (Vancomycin (Pre-Docked)) 1,000 mg IVPB BID [facility]; Protocol - Objective Vital Signs: Vital Signs Temperature 98.8 F 04/18/19 06:00 Pulse Rate 87 04/18/19 06:00 Respiratory Rate 18 04/18/19 06:00 Blood Pressure 133/69 04/18/19 06:00 O2 Sat by Pulse Oximetry (%) 98 04/17/19 21:00 Constitutional: Yes: Calm Eyes: Yes: WNL HENT: Yes: WNL Neck: Yes: WNL Cardiovascular: Yes: S1, S2 Respiratory: Yes: Regular Gastrointestinal: Yes: Soft ...Rectal Exam: Yes: Deferred Genitourinary: No: Anuria Breast(s): Yes: Other Musculoskeletal: Yes: Muscle Weakness Extremities: Yes: WNL Edema: No Peripheral Pulses WNL: Yes Integumentary: Yes: Skin Tear Wound/Incision: Yes: Open to air Neurological: Yes: Alert, Oriented, Paresthesia Psychiatric: Yes: Alert, Oriented, Other (depression) Labs: CBC, BMP 04/18/19 05:40 04/18/19 05:40 INR, PTT INR 1.11 (0.83-1.09) H 04/15/19 15:15 Problem List - Problems (1) Syncope Assessment/Plan: No further episodes. Maintain hydration. ECHO: normal LVEF; abnormal diastolic compliance. Code(s): R55 - SYNCOPE AND COLLAPSE (2) HTN (hypertension) Code(s): I10 - ESSENTIAL (PRIMARY) HYPERTENSION Qualifiers: Hypertension type: unspecified Qualified Code(s): I10 - Essential (primary ) hypertension (3) Multiple myeloma Code(s): C90.00 - MULTIPLE MYELOMA NOT HAVING ACHIEVED REMISSION Qualifiers: Multiple myeloma remission status: not in remission Qualified Code(s): C90.00 - Multiple myeloma not having achieved remission (4) Weakness Code(s): R53.1 - WEAKNESS (5) Weight loss Code(s): R63.4 - ABNORMAL WEIGHT LOSS (6) Hypoalbuminemia Code(s): E88.09 - OTH DISORDERS OF PLASMA-PROTEIN METABOLISM, NEC (7) Gout Code(s): M10.9 - GOUT, UNSPECIFIED (8) Shingles Code(s): B02.9 - ZOSTER WITHOUT COMPLICATIONS (9) Hypothyroidism Code(s): E03.9 - HYPOTHYROIDISM, UNSPECIFIED Qualifiers: Hypothyroidism type: acquired Qualified Code(s): E03.9 - Hypothyroidism, unspecified (10) HLD (hyperlipidemia) Code(s): E78.5 - HYPERLIPIDEMIA, UNSPECIFIED Qualifiers: Hyperlipidemia type: unspecified Qualified Code(s): E78.5 - Hyperlipidemia , unspecified (11) ASHD (arteriosclerotic heart disease) Code(s): I25.10 - ATHSCL HEART DISEASE OF [place] CORONARY ARTERY W/O ANG PCTRS (12) Depression Code(s): F32.9 - MAJOR DEPRESSIVE DISORDER, SINGLE EPISODE, UNSPECIFIED
--- NOTE | 2019-04-18 16:29 | PN ---
Progress Note (short form) - Note Progress Note: ID CONSULT DICTATED ? OTITIS ? EARLY VZV MYELOMA ON IMMUNOSUPPRESSIVE THERAPY PCN ALLERGY ENT EVALUATION EMPIRIC VANCO/ CEFEPIME/ ACV
[2019-04-18] MEDS: VANCOMYCIN 1 GRAM (PRE-DOCKED) 1,000 MG/250 ML BAG IVPB SCH (16:56)
[2019-04-18] MEDS: ACYCLOVIR INJECTION 600 MG in DEXTROSE 5%-WATER - 100 ML IVPB SCH (18:41)
--- NOTE | 2019-04-18 18:49 | CONS ---
INFECTIOUS DISEASE CONSULTATION DATE OF CONSULTATION: DATE OF DICTATION: 04/18/2019 The patient is a 74-year-old female, history of multiple myeloma on immunosuppressive therapy, evaluated for otitis. She was admitted to the hospital on April 13, 2019, after a syncopal episode. Patient was having phlebotomy in her oncologist's office and had a syncopal episode. She was admitted to the hospital. CAT scan of the head was negative. Her course has now been complicated by ear pain and reports of purulent drainage from the ear. She complains of bilateral ear pain, right greater than left, with malodorous drainage from the right ear. In addition, she complained of periorbital edema. She was empirically treated with vancomycin and cefepime for suspected otitis externa. An ENT consultation has been requested. The patient is on immunosuppressive therapy with Velcade, Decadron, and Revlimid. PAST MEDICAL HISTORY: Positive for multiple myeloma, congestive heart failure, coronary artery disease, myocardial infarction, hypertension, hyperlipidemia. PAST SURGICAL HISTORY: Status post hernia repair, hysterectomy, tubal ligation. ALLERGIES: PENICILLIN. Patient has tolerated cephalosporins in the past. MEDICATIONS: Include Tylenol, Valtrex, allopurinol, aspirin, Lipitor, Plavix, fluconazole, vancomycin, and cefepime. LABORATORY DATA: White count 3.4; neutrophils 53, lymphocytes 27, monocytes 8; hematocrit 28.4; platelet count 175. Urinalysis: White cells 7. Creatinine 0.7. Fluid cultures negative. Chest x-ray negative for acute infiltrate. PHYSICAL EXAMINATION: General: She is awake and alert. Vital Signs: Temperature 98.1; blood pressure 126/71; pulse 76, regular; respirations 18 per minute. HEENT: Sclerae anicteric. There is some mild bilateral periorbital swelling. No conjunctivitis or ocular drainage. On examination of the right ear, there is swelling of the pinna with no appreciable erythema, questionable early vesicular lesions in the upper part of the right pinna. They are minute. There does not seem to be involvement of the external auditory canal. No purulent drainage is noted. Examination of the left pinna: There does appear to be slight swelling. There is no erythema. No vesicular lesions noted. No drainage. Neck: Supple. No palpable nodes. Heart: Sounds S1, S2. Lungs: Clear. Abdomen: Soft and nontender. IMPRESSION: 1. Possible otitis. 2. Rule out early VZV (varicella zoster virus). 3. Myeloma on immunosuppressive therapy. 4. PENICILLIN allergy. Agree with ENT evaluation. Empiric antibiotic coverage in this immunosuppressed patient with vancomycin, cefepime, and IV acyclovir. Will monitor. Thank you for the kind referral. ALVAREZ LAMBERT M.D. [id number]
[2019-04-18] MEDS: CEFEPIME HCL/D5W 1 GM/50 ML BAG IVPB SCH (20:35)
--- NOTE | 2019-04-18 20:50 | PN ---
Progress Note (short form) - Note Progress Note: Patient seen and examined Developed blepharitis/conjunctivitis for 1 day Also with rt. ear iching Last Vital Signs Temp Pulse Resp BP Pulse Ox 98.4 F 75 18 129/71 97 04/18/19 22:00 04/18/19 22:00 04/18/19 22:00 04/18/19 22:00 04/18/19 21:00 Cor: RSR, No murmurs, No gallops Lungs: Clear to P&A Abd: Soft, Normal bowel sounds, No organomegaly Ext:No significant edema Labs/Meds reviewed A/P 74 y/o patient with myeloma/amyloid/ nephroic syndrome/ CHF rt. ear otitis externa and b/l blepharitis will get ophthalmology/ENT consult ? allergic reaction? ? infecion Being covered empirically with antimicrobials
--- NOTE | 2019-04-18 20:56 | PN ---
Progress Note, Physician History of Present Illness: stable - Current Medication List Current Medications: Active Medications Acetaminophen (Tylenol -) 650 mg PO Q6H PRN PRN Reason: PAIN LEVEL 6-10 Last Admin: 04/14/19 21:30 Dose: 650 mg Allopurinol (Zyloprim -) 300 mg PO DAILY [facility] Last Admin: 04/18/19 10:11 Dose: 300 mg Aspirin (Asa -) 81 mg PO DAILY [facility] Last Admin: 04/18/19 10:11 Dose: 81 mg Atorvastatin Calcium (Lipitor -) 40 mg PO HS [facility] Last Admin: 04/17/19 22:02 Dose: 40 mg Clopidogrel Bisulfate (Plavix -) 75 mg PO DAILY [facility] Last Admin: 04/18/19 10:11 Dose: 75 mg Escitalopram Oxalate (Lexapro -) 10 mg PO DAILY [facility] Last Admin: 04/18/19 10:11 Dose: 10 mg Fluconazole (Diflucan -) 100 mg PO DAILY [facility] Last Admin: 04/18/19 10:11 Dose: 100 mg Heparin Sodium (Porcine) (Heparin -) 5,000 unit SQ BID [facility] Last Admin: 04/18/19 10:12 Dose: 5,000 unit Vancomycin HCl (Vancomycin (Pre-Docked)) 1,000 mg in 250 mls @ 166.667 mls/hr IVPB Q12H [facility]; Protocol Last Admin: 04/18/19 16:56 Dose: 166.667 mls/hr Acyclovir 600 mg/ Dextrose 112 mls @ 100 mls/hr IVPB Q8H-IV [facility] Last Admin: 04/18/19 18:41 Dose: 100 mls/hr Levothyroxine Sodium (Synthroid -) 75 mcg PO DAILY@0700 [facility] Last Admin: 04/18/19 06:08 Dose: 75 mcg Nystatin (Nystop Powder -) 1 applic TP BID [facility] Last Admin: 04/18/19 10:16 Dose: 1 applic Pantoprazole Sodium (Protonix -) 40 mg PO DAILY [facility] Last Admin: 04/18/19 10:11 Dose: 40 mg Potassium Chloride (K-Dur -) 10 meq PO DAILY [facility] Last Admin: 04/18/19 10:11 Dose: 10 meq Tobramycin Sulfate (Tobrex Ophthalmic Solution -) 1 drop OD TID [facility] Last Admin: 04/18/19 13:48 Dose: 1 drop - Objective Vital Signs: Vital Signs Temperature 97.9 F 04/18/19 18:25 Pulse Rate 71 04/18/19 18:25 Respiratory Rate 18 04/18/19 18:25 Blood Pressure 126/62 04/18/19 18:25 O2 Sat by Pulse Oximetry (%) 99 04/18/19 09:00 Constitutional: Yes: No Distress HENT: Yes: Atraumatic Neck: Yes: Supple Cardiovascular: Yes: Regular Rate and Rhythm Respiratory: Yes: CTA Bilaterally Gastrointestinal: Yes: Normal Bowel Sounds Extremities: Yes: WNL Edema: No Neurological: Yes: Alert, Oriented Labs: CBC, BMP 04/18/19 05:40 04/18/19 05:40 INR, PTT INR 1.11 (0.83-1.09) H 04/15/19 15:15 Problem List - Problems (1) Gout Code(s): M10.9 - GOUT, UNSPECIFIED (2) Hypokalemia Assessment/Plan: resolved monitor levels Code(s): E87.6 - HYPOKALEMIA (3) Syncope Code(s): R55 - SYNCOPE AND COLLAPSE (4) ASHD (arteriosclerotic heart disease) Code(s): I25.10 - ATHSCL HEART DISEASE OF [place] CORONARY ARTERY W/O ANG PCTRS (5) CKD (chronic kidney disease) Code(s): N18.9 - CHRONIC KIDNEY DISEASE, UNSPECIFIED (6) HLD (hyperlipidemia) Code(s): E78.5 - HYPERLIPIDEMIA, UNSPECIFIED Qualifiers: Hyperlipidemia type: unspecified Qualified Code(s): E78.5 - Hyperlipidemia , unspecified (7) HTN (hypertension) Code(s): I10 - ESSENTIAL (PRIMARY) HYPERTENSION Qualifiers: Hypertension type: unspecified Qualified Code(s): I10 - Essential (primary ) hypertension (8) Conjunctivitis Code(s): H10.9 - UNSPECIFIED CONJUNCTIVITIS (9) Hypothyroidism Code(s): E03.9 - HYPOTHYROIDISM, UNSPECIFIED Qualifiers: Hypothyroidism type: acquired Qualified Code(s): E03.9 - Hypothyroidism, unspecified (10) Multiple myeloma Code(s): C90.00 - MULTIPLE MYELOMA NOT HAVING ACHIEVED REMISSION Qualifiers: Multiple myeloma remission status: not in remission Qualified Code(s): C90.00 - Multiple myeloma not having achieved remission (11) Otitis externa Code(s): H60.90 - UNSPECIFIED OTITIS EXTERNA, UNSPECIFIED EAR Qualifiers: Otitis externa type: unspecified type Chronicity: acute Laterality: right Qualified Code(s): H60.501 - Unspecified acute noninfective otitis externa, right ear (12) PAF (paroxysmal atrial fibrillation) Code(s): I48.0 - PAROXYSMAL ATRIAL FIBRILLATION Assessment/Plan continue current meds patient stable covering for dr BELL TODAY
[2019-04-18] MEDS: ATORVASTATIN CA 20 MG TABLET (FP) PO SCH (21:38)
[2019-04-19] MEDS ORDERED: PT OWN MED DRAWER 7, Y5N ONE ×5 (02:47→17:52)
[2019-04-19] MEDS: ACYCLOVIR INJECTION 600 MG in DEXTROSE 5%-WATER - 100 ML IVPB SCH ×3 (02:54→17:54)
[2019-04-19] MEDS: VANCOMYCIN 1 GRAM (PRE-DOCKED) 1,000 MG/250 ML BAG IVPB SCH ×2 (05:59→18:52)
[2019-04-19] MEDS: LEVOTHYROXINE NA 75 MCG TABLET (FP) PO SCH (05:59)
[2019-04-19] MEDS: TOBRAMYCIN 0.3% OPHTH SOLN 5 ML BOTTLE OD SCH ×3 (06:00→21:37)
[2019-04-19] MEDS: CEFEPIME HCL/D5W 1 GM/50 ML BAG IVPB SCH (07:53)
[2019-04-19] MEDS: VANCOMYCIN 1 GM in D5W (PRE-DOCKED) 1,000 MG/250 ML IVPB SCH (07:53)
[2019-04-19] MEDS: PANTOPRAZOLE 40 MG TABLET (FP) PO SCH (09:38)
[2019-04-19] MEDS: CLOPIDOGREL BISULFATE 75 MG TABLET (FP) PO SCH (09:38)
[2019-04-19] MEDS: POTASSIUM CHLORIDE TABS 10 MEQ TABLET.ER (FP) PO SCH (09:38)
[2019-04-19] MEDS: ASPIRIN 81 MG CHEWABLE TABLETS PO SCH (09:39)
[2019-04-19] MEDS: FLUCONAZOLE 100 MG TABLET (UD) PO SCH (09:39)
[2019-04-19] MEDS: NYSTATIN POWDER 100,000 UNITS/GM - 15 GM TOPICAL POWDER TP SCH ×2 (09:39→21:37)
[2019-04-19] MEDS: ESCITALOPRAM OXALATE 10 MG TABLET (FP) PO SCH (09:39)
[2019-04-19] MEDS: ALLOPURINOL 300 MG TABLET (FP) PO SCH (09:39)
[2019-04-19] MEDS: HEPARIN NA (PORCINE) 5,000 UNITS/ML 1ML VIAL SQ SCH ×2 (09:39→21:29)
--- NOTE | 2019-04-19 12:22 | PN ---
Progress Note, Physician History of Present Illness: Pt seen and examined at bedside. She is awake and alert. She feels some edema building up in her feet. She denies shortness of breath. - Current Medication List Current Medications: Active Medications Acetaminophen (Tylenol -) 650 mg PO Q6H PRN PRN Reason: PAIN LEVEL 6-10 Last Admin: 04/14/19 21:30 Dose: 650 mg Allopurinol (Zyloprim -) 300 mg PO DAILY [facility] Last Admin: 04/19/19 09:39 Dose: 300 mg Aspirin (Asa -) 81 mg PO DAILY [facility] Last Admin: 04/19/19 09:39 Dose: 81 mg Atorvastatin Calcium (Lipitor -) 40 mg PO HS [facility] Last Admin: 04/18/19 21:38 Dose: 40 mg Clopidogrel Bisulfate (Plavix -) 75 mg PO DAILY [facility] Last Admin: 04/19/19 09:38 Dose: 75 mg Escitalopram Oxalate (Lexapro -) 10 mg PO DAILY [facility] Last Admin: 04/19/19 09:39 Dose: 10 mg Fluconazole (Diflucan -) 100 mg PO DAILY [facility] Last Admin: 04/19/19 09:39 Dose: 100 mg Heparin Sodium (Porcine) (Heparin -) 5,000 unit SQ BID [facility] Last Admin: 04/19/19 09:39 Dose: 5,000 unit Vancomycin HCl (Vancomycin (Pre-Docked)) 1,000 mg in 250 mls @ 166.667 mls/hr IVPB Q12H [facility]; Protocol Last Admin: 04/19/19 05:59 Dose: 166.667 mls/hr Acyclovir 600 mg/ Dextrose 112 mls @ 100 mls/hr IVPB Q8H-IV [facility] Last Admin: 04/19/19 09:38 Dose: 100 mls/hr Levothyroxine Sodium (Synthroid -) 75 mcg PO DAILY@0700 [facility] Last Admin: 04/19/19 05:59 Dose: 75 mcg Nystatin (Nystop Powder -) 1 applic TP BID [facility] Last Admin: 04/19/19 09:39 Dose: 1 applic Pantoprazole Sodium (Protonix -) 40 mg PO DAILY [facility] Last Admin: 04/19/19 09:38 Dose: 40 mg Potassium Chloride (K-Dur -) 10 meq PO DAILY [facility] Last Admin: 04/19/19 09:38 Dose: 10 meq Tobramycin Sulfate (Tobrex Ophthalmic Solution -) 1 drop OD TID [facility] Last Admin: 04/19/19 06:00 Dose: 1 drop - Objective Vital Signs: Vital Signs Temperature 98 F 04/19/19 10:06 Pulse Rate 88 04/19/19 10:06 Respiratory Rate 18 04/19/19 10:06 Blood Pressure 105/62 04/19/19 10:06 O2 Sat by Pulse Oximetry (%) 100 04/19/19 10:06 Constitutional: Yes: Calm Eyes: Yes: Conjunctiva Clear HENT: Yes: Atraumatic Neck: Yes: Supple Cardiovascular: Yes: S1, S2 Respiratory: Yes: CTA Bilaterally Gastrointestinal: Yes: Soft Genitourinary: Yes: WNL Musculoskeletal: Yes: WNL Edema: LLE: Trace, RLE: Trace Neurological: Yes: Oriented Psychiatric: Yes: Oriented Labs: CBC, BMP 04/18/19 05:40 04/18/19 05:40 INR, PTT INR 1.11 (0.83-1.09) H 04/15/19 15:15 Problem List - Problems (1) Hypokalemia Code(s): E87.6 - HYPOKALEMIA Assessment/Plan Current Medications Generic Name Dose Route Start Last Admin Trade Name Freq PRN Reason Stop Dose Admin Acetaminophen 650 mg 04/14/19 22:01 04/14/19 21:30 Tylenol - PO 650 mg Q6H PRN Administration PAIN LEVEL 6-10 Allopurinol 300 mg 04/14/19 10:00 04/19/19 09:39 Zyloprim - PO 300 mg DAILY [facility] Administration Aspirin 81 mg 04/14/19 10:00 04/19/19 09:39 Asa - PO 81 mg DAILY [facility] Administration Atorvastatin Calcium 40 mg 04/13/19 22:00 04/18/19 21:38 Lipitor - PO 40 mg HS [facility] Administration Clopidogrel Bisulfate 75 mg 04/14/19 10:00 04/19/19 09:38 Plavix - PO 75 mg DAILY [facility] Administration Escitalopram Oxalate 10 mg 04/16/19 10:00 04/19/19 09:39 Lexapro - PO 10 mg DAILY [facility] Administration Fluconazole 100 mg 04/14/19 22:00 04/19/19 09:39 Diflucan - PO 100 mg DAILY [facility] Administration Heparin Sodium (Porcine) 5,000 unit 04/13/19 22:00 04/19/19 09:39 Heparin - SQ 5,000 unit BID [facility] Administration Vancomycin HCl 1,000 mg in 250 mls @ 166.667 mls/hr 04/18/19 16:45 04/19/19 05:59 Vancomycin (Pre-Docked) IVPB 166.667 mls/hr Q12H [facility] Administration Protocol Acyclovir 600 mg/ Dextrose 112 mls @ 100 mls/hr 04/18/19 18:00 04/19/19 09:38 IVPB 100 mls/hr Q8H-IV [facility] Administration Levothyroxine Sodium 75 mcg 04/14/19 07:00 04/19/19 05:59 Synthroid - PO 75 mcg DAILY@0700 [facility] Administration Nystatin 1 applic 04/14/19 22:00 04/19/19 09:39 Nystop Powder - TP 1 applic BID [facility] Administration Pantoprazole Sodium 40 mg 04/14/19 10:00 04/19/19 09:38 Protonix - PO 40 mg DAILY [facility] Administration Potassium Chloride 10 meq 04/14/19 10:00 04/19/19 09:38 K-Dur - PO 10 meq DAILY [facility] Administration Tobramycin Sulfate 1 drop 04/17/19 22:00 04/19/19 06:00 Tobrex Ophthalmic Solution - OD 1 drop TID [facility] Administration Impression 1. proteinuria 2. multiple myeloma 3. amyloid 4. syncope 5. hypotension 6. HLD 7. hypothyroidism 8. anemia 9. CKD 10. hypokalemia Plan - cont to monitor renal function - will likely have to restart lasix on a lower dose - evaluate volume status again tomorrow - bp is low today so will not give lasix now
--- NOTE | 2019-04-19 13:13 | CONSULT ---
Consult - text type - Consultation Consultation Note: ENT Right ear pain x 2 days. Hx of otitis externa, previously treated with ototopical medication. Some recent blood in her nasal mucus, as well. P/Nose is patent and without blood visible anteriorly AU flaky conchal skin, with cerumen impactions. Unable to see TMs Imp: Epistaxis, and chronic otitis externa Recommend ototopical abx such as cortisporin otic suspension 4 gtt AD qid, and outpatient ENT follow up for ear cleaning and further management of epistaxis Reconsult if worsens
--- NOTE | 2019-04-19 15:15 | PN ---
Progress Note, Physician History of Present Illness: Reports less ear pain. Denies discharge No visual complaints No fever/ chills - Current Medication List Current Medications: Active Medications Acetaminophen (Tylenol -) 650 mg PO Q6H PRN PRN Reason: PAIN LEVEL 6-10 Last Admin: 04/14/19 21:30 Dose: 650 mg Allopurinol (Zyloprim -) 300 mg PO DAILY [facility] Last Admin: 04/19/19 09:39 Dose: 300 mg Aspirin (Asa -) 81 mg PO DAILY [facility] Last Admin: 04/19/19 09:39 Dose: 81 mg Atorvastatin Calcium (Lipitor -) 40 mg PO HS [facility] Last Admin: 04/18/19 21:38 Dose: 40 mg Clopidogrel Bisulfate (Plavix -) 75 mg PO DAILY [facility] Last Admin: 04/19/19 09:38 Dose: 75 mg Escitalopram Oxalate (Lexapro -) 10 mg PO DAILY [facility] Last Admin: 04/19/19 09:39 Dose: 10 mg Fluconazole (Diflucan -) 100 mg PO DAILY [facility] Last Admin: 04/19/19 09:39 Dose: 100 mg Heparin Sodium (Porcine) (Heparin -) 5,000 unit SQ BID [facility] Last Admin: 04/19/19 09:39 Dose: 5,000 unit Vancomycin HCl (Vancomycin (Pre-Docked)) 1,000 mg in 250 mls @ 166.667 mls/hr IVPB Q12H [facility]; Protocol Last Admin: 04/19/19 05:59 Dose: 166.667 mls/hr Acyclovir 600 mg/ Dextrose 112 mls @ 100 mls/hr IVPB Q8H-IV [facility] Last Admin: 04/19/19 09:38 Dose: 100 mls/hr Levothyroxine Sodium (Synthroid -) 75 mcg PO DAILY@0700 [facility] Last Admin: 04/19/19 05:59 Dose: 75 mcg Nystatin (Nystop Powder -) 1 applic TP BID [facility] Last Admin: 04/19/19 09:39 Dose: 1 applic Pantoprazole Sodium (Protonix -) 40 mg PO DAILY [facility] Last Admin: 04/19/19 09:38 Dose: 40 mg Potassium Chloride (K-Dur -) 10 meq PO DAILY [facility] Last Admin: 04/19/19 09:38 Dose: 10 meq Tobramycin Sulfate (Tobrex Ophthalmic Solution -) 1 drop OD TID [facility] Last Admin: 04/19/19 14:50 Dose: 1 drop - Objective Vital Signs: Vital Signs Temperature 98.4 F 04/19/19 14:50 Pulse Rate 89 04/19/19 14:50 Respiratory Rate 18 04/19/19 14:50 Blood Pressure 124/70 04/19/19 14:50 O2 Sat by Pulse Oximetry (%) 100 04/19/19 10:06 Constitutional: Yes: No Distress Eyes: Yes: Conjunctiva Clear, Other (no periorbital swelling) HENT: Yes: Other (minimal diffuse swelling R pinna. No erythema. No vesicular lesions. No discharge. No pinna tenderness L pinna no erythema/tenderness /discharge/ vesicles.) Cardiovascular: Yes: Regular Rate and Rhythm, S1, S2 Respiratory: Yes: CTA Bilaterally Gastrointestinal: No: Tenderness Labs: CBC, BMP 04/18/19 05:40 04/18/19 05:40 INR, PTT INR 1.11 (0.83-1.09) H 04/15/19 15:15 Assessment/Plan Otitis externa Hx Myeloma on immunosuppressive tx PCN allergy ENT EVALUATION APPRECIATED CONTINUE VANCOMYCIN/ CEFEPIME/ ACV
--- NOTE | 2019-04-19 18:27 | PN ---
Progress Note (short form) - Note Progress Note: Patient seen and examined Complains of left knee pains ENT - otitis externa / cerumen Last Vital Signs Temp Pulse Resp BP Pulse Ox 98.6 F 73 18 126/66 100 04/19/19 17:50 04/19/19 17:50 04/19/19 17:50 04/19/19 17:50 04/19/19 10:06 HEENT: ZOILA, EOM Intact Oropharynx: No thrush, No mucositis Cor: RSR, No murmurs, No gallops Lungs: Clear to P&A Abd: Soft, Normal bowel sounds, No organomegaly Ext:No significant edema Skin: No rashes, Integument intact CBC, BMP 04/18/19 05:40 04/18/19 05:40 Current Medications Generic Name Dose Route Start Last Admin Trade Name Freq PRN Reason Stop Dose Admin Acetaminophen 650 mg 04/14/19 22:01 04/14/19 21:30 Tylenol - PO 650 mg Q6H PRN Administration PAIN LEVEL 6-10 Allopurinol 300 mg 04/14/19 10:00 04/19/19 09:39 Zyloprim - PO 300 mg DAILY [facility] Administration Aspirin 81 mg 04/14/19 10:00 04/19/19 09:39 Asa - PO 81 mg DAILY [facility] Administration Atorvastatin Calcium 40 mg 04/13/19 22:00 04/18/19 21:38 Lipitor - PO 40 mg HS [facility] Administration Clopidogrel Bisulfate 75 mg 04/14/19 10:00 04/19/19 09:38 Plavix - PO 75 mg DAILY [facility] Administration Escitalopram Oxalate 10 mg 04/16/19 10:00 04/19/19 09:39 Lexapro - PO 10 mg DAILY [facility] Administration Fluconazole 100 mg 04/14/19 22:00 04/19/19 09:39 Diflucan - PO 100 mg DAILY [facility] Administration Heparin Sodium (Porcine) 5,000 unit 04/13/19 22:00 04/19/19 09:39 Heparin - SQ 5,000 unit BID [facility] Administration Vancomycin HCl 1,000 mg in 250 mls @ 166.667 mls/hr 04/18/19 16:45 04/19/19 17:57 Vancomycin (Pre-Docked) IVPB 166.667 mls/hr Q12H [facility] Administration Protocol Acyclovir 600 mg/ Dextrose 112 mls @ 100 mls/hr 04/18/19 18:00 04/19/19 17:54 IVPB 100 mls/hr Q8H-IV [facility] Administration Levothyroxine Sodium 75 mcg 04/14/19 07:00 04/19/19 05:59 Synthroid - PO 75 mcg DAILY@0700 [facility] Administration Nystatin 1 applic 04/14/19 22:00 04/19/19 09:39 Nystop Powder - TP 1 applic BID [facility] Administration Pantoprazole Sodium 40 mg 04/14/19 10:00 04/19/19 09:38 Protonix - PO 40 mg DAILY [facility] Administration Potassium Chloride 10 meq 04/14/19 10:00 04/19/19 09:38 K-Dur - PO 10 meq DAILY [facility] Administration Tobramycin Sulfate 1 drop 04/17/19 22:00 04/19/19 14:50 Tobrex Ophthalmic Solution - OD 1 drop TID [facility] Administration Impression: Myeloma/amyloid /nephrotic syndrome Otitis externa Anemia Leukopenia Currently empiric antibiotics with diflucan, acyclovir , and vancomycin.
[2019-04-19] MEDS ORDERED: INSULIN SLIDING SCALE (NOVOLOG) 1 VIAL SQ ONE (19:18)
[2019-04-19] MEDS: ATORVASTATIN CA 20 MG TABLET (FP) PO SCH (21:29)
[2019-04-19] MEDS: ACETAMINOPHEN 325 MG TABLET (FP) PO PRN (21:29)
[2019-04-20] MEDS: ACYCLOVIR INJECTION 600 MG in DEXTROSE 5%-WATER - 100 ML IVPB SCH ×3 (02:24→18:50)
[2019-04-20] MEDS ORDERED: PT OWN MED DRAWER 7, Y5N ONE ×4 (02:24→18:01)
--- NOTE | 2019-04-20 02:31 | PN ---
Progress Note, Physician History of Present Illness: Pt seen and examined on 04/19/19 however note is being entered now Pt states that she has been having diarrhea - Current Medication List Current Medications: Active Medications Acetaminophen (Tylenol -) 650 mg PO Q6H PRN PRN Reason: PAIN LEVEL 6-10 Last Admin: 04/19/19 21:29 Dose: 650 mg Allopurinol (Zyloprim -) 300 mg PO DAILY [facility] Last Admin: 04/19/19 09:39 Dose: 300 mg Aspirin (Asa -) 81 mg PO DAILY [facility] Last Admin: 04/19/19 09:39 Dose: 81 mg Atorvastatin Calcium (Lipitor -) 40 mg PO HS [facility] Last Admin: 04/19/19 21:29 Dose: 40 mg Clopidogrel Bisulfate (Plavix -) 75 mg PO DAILY [facility] Last Admin: 04/19/19 09:38 Dose: 75 mg Escitalopram Oxalate (Lexapro -) 10 mg PO DAILY [facility] Last Admin: 04/19/19 09:39 Dose: 10 mg Fluconazole (Diflucan -) 100 mg PO DAILY [facility] Last Admin: 04/19/19 09:39 Dose: 100 mg Heparin Sodium (Porcine) (Heparin -) 5,000 unit SQ BID [facility] Last Admin: 04/19/19 21:29 Dose: 5,000 unit Vancomycin HCl (Vancomycin (Pre-Docked)) 1,000 mg in 250 mls @ 166.667 mls/hr IVPB Q12H [facility]; Protocol Last Admin: 04/19/19 18:52 Dose: 166.667 mls/hr Acyclovir 600 mg/ Dextrose 112 mls @ 100 mls/hr IVPB Q8H-IV [facility] Last Admin: 04/20/19 02:24 Dose: 100 mls/hr Levothyroxine Sodium (Synthroid -) 75 mcg PO DAILY@0700 [facility] Last Admin: 04/19/19 05:59 Dose: 75 mcg Nystatin (Nystop Powder -) 1 applic TP BID [facility] Last Admin: 04/19/19 21:37 Dose: 1 applic Pantoprazole Sodium (Protonix -) 40 mg PO DAILY [facility] Last Admin: 04/19/19 09:38 Dose: 40 mg Potassium Chloride (K-Dur -) 10 meq PO DAILY [facility] Last Admin: 04/19/19 09:38 Dose: 10 meq Tobramycin Sulfate (Tobrex Ophthalmic Solution -) 1 drop OD TID [facility] Last Admin: 04/19/19 21:37 Dose: 1 drop - Objective Vital Signs: Vital Signs Temperature 98.6 F 04/19/19 21:46 Pulse Rate 78 04/19/19 21:46 Respiratory Rate 20 04/19/19 21:46 Blood Pressure 108/57 L 04/19/19 21:46 O2 Sat by Pulse Oximetry (%) 100 04/19/19 20:06 Neck: Yes: WNL, Supple Cardiovascular: Yes: WNL, Regular Rate and Rhythm Respiratory: Yes: WNL, Regular, CTA Bilaterally Gastrointestinal: Yes: WNL, Normal Bowel Sounds, Soft Labs: CBC, BMP 04/18/19 05:40 04/18/19 05:40 INR, PTT INR 1.11 (0.83-1.09) H 04/15/19 15:15 Problem List - Problems (1) Otitis externa Assessment/Plan: Cont IV vanco ENT/ID consults noted Cont corticosporin otic suspension Code(s): H60.90 - UNSPECIFIED OTITIS EXTERNA, UNSPECIFIED EAR Qualifiers: Otitis externa type: unspecified type Chronicity: acute Laterality: right Qualified Code(s): H60.501 - Unspecified acute noninfective otitis externa, right ear (2) Multiple myeloma Assessment/Plan: As per onco Code(s): C90.00 - MULTIPLE MYELOMA NOT HAVING ACHIEVED REMISSION Qualifiers: Multiple myeloma remission status: not in remission Qualified Code(s): C90.00 - Multiple myeloma not having achieved remission (3) HTN (hypertension) Assessment/Plan: BP meds on hold due to orthostatic hypotension Code(s): I10 - ESSENTIAL (PRIMARY) HYPERTENSION Qualifiers: Hypertension type: unspecified Qualified Code(s): I10 - Essential (primary ) hypertension (4) Conjunctivitis Assessment/Plan: Start tobraycin ophthalmologic drops Code(s): H10.9 - UNSPECIFIED CONJUNCTIVITIS (5) Syncope Assessment/Plan: Pt w/ orthostatic hypotension Echo showed normal EF DC tele As per cardio Code(s): R55 - SYNCOPE AND COLLAPSE (6) Depression Assessment/Plan: Cont lexapro Psych consult pending Code(s): F32.9 - MAJOR DEPRESSIVE DISORDER, SINGLE EPISODE, UNSPECIFIED (7) Anemia Assessment/Plan: Multifactorial Code(s): D64.9 - ANEMIA, UNSPECIFIED Qualifiers: Chronic kidney disease stage: unspecified stage (8) CAD (coronary artery disease) Code(s): I25.10 - ATHSCL HEART DISEASE OF [place] CORONARY ARTERY W/O ANG PCTRS Qualifiers: (9) CHF (congestive heart failure) Assessment/Plan: Diuretics on hold due to hypotension Code(s): I50.9 - HEART FAILURE, UNSPECIFIED Qualifiers: Heart failure type: systolic Heart failure chronicity: unspecified Qualified Code(s): I50.20 - Unspecified systolic (congestive) heart failure (10) CKD (chronic kidney disease) Code(s): N18.9 - CHRONIC KIDNEY DISEASE, UNSPECIFIED (11) HLD (hyperlipidemia) Assessment/Plan: Cont lipitor Code(s): E78.5 - HYPERLIPIDEMIA, UNSPECIFIED Qualifiers: Hyperlipidemia type: unspecified Qualified Code(s): E78.5 - Hyperlipidemia , unspecified (12) Hypothyroidism Assessment/Plan: Cont levothyroxine Code(s): E03.9 - HYPOTHYROIDISM, UNSPECIFIED Qualifiers: Hypothyroidism type: acquired Qualified Code(s): E03.9 - Hypothyroidism, unspecified (13) PAF (paroxysmal atrial fibrillation) Assessment/Plan: No AC due to h/o rectal bleeding/rectal polyps Heart rate controlled Code(s): I48.0 - PAROXYSMAL ATRIAL FIBRILLATION
[2019-04-20] MEDS: VANCOMYCIN 1 GRAM (PRE-DOCKED) 1,000 MG/250 ML BAG IVPB SCH ×2 (03:51→16:25)
[2019-04-20] MEDS: NEOMYCIN/POLYMYXN/HC OTIC SUSPENSION 10 ML BOTTLE AS SCH ×3 (05:15→18:14)
[2019-04-20] MEDS: TOBRAMYCIN 0.3% OPHTH SOLN 5 ML BOTTLE OD SCH ×3 (05:16→20:59)
[2019-04-20] MEDS: LEVOTHYROXINE NA 75 MCG TABLET (FP) PO SCH (06:00)
[2019-04-20 06:45] LABS: WHITE BLOOD COUNT 3.5 K/mm3 (4.0-10.0)
--- NOTE | 2019-04-20 07:17 | PN ---
Progress Note, Physician Chief Complaint: Pt A&Ox3; feels weak; no dizziness overnight; continues to have pain under left breast, with sloughed skin, open wound. History of Present Illness: The patient is a 74-year-old black female, with a past medical history of HTN, HLD, [place], diastolic CHF, multiple myeloma (on Velcade and Revlamide), severe depression (was on Paxil), who presents to the ED s/p 2 syncopal episodes today. The patient was having blood drawn during a routine visit with her oncologist when she suddenly became dizzy and lightheaded and subsequently lost consciousness. Patient was seated when she lost consciousness. Denies any head trauma. Rapid response was called and upon arrival of the ED team, the patient was witnessed to have another syncopal episode. Patient does not recall the incident. She denies ever having CP/SOB/palpitations. Denies F/C. Had one episode of diarrhea this morning, no vomiting. Denies abdominal pain. - Current Medication List Current Medications: Active Medications Acetaminophen (Tylenol -) 650 mg PO Q6H PRN PRN Reason: PAIN LEVEL 6-10 Last Admin: 04/19/19 21:29 Dose: 650 mg Allopurinol (Zyloprim -) 300 mg PO DAILY [facility] Last Admin: 04/19/19 09:39 Dose: 300 mg Aspirin (Asa -) 81 mg PO DAILY [facility] Last Admin: 04/19/19 09:39 Dose: 81 mg Atorvastatin Calcium (Lipitor -) 40 mg PO HS [facility] Last Admin: 04/19/19 21:29 Dose: 40 mg Clopidogrel Bisulfate (Plavix -) 75 mg PO DAILY [facility] Last Admin: 04/19/19 09:38 Dose: 75 mg Escitalopram Oxalate (Lexapro -) 10 mg PO DAILY [facility] Last Admin: 04/19/19 09:39 Dose: 10 mg Fluconazole (Diflucan -) 100 mg PO DAILY [facility] Last Admin: 04/19/19 09:39 Dose: 100 mg Heparin Sodium (Porcine) (Heparin -) 5,000 unit SQ BID [facility] Last Admin: 04/19/19 21:29 Dose: 5,000 unit Vancomycin HCl (Vancomycin (Pre-Docked)) 1,000 mg in 250 mls @ 166.667 mls/hr IVPB Q12H [facility]; Protocol Last Admin: 04/20/19 03:51 Dose: 166.667 mls/hr Acyclovir 600 mg/ Dextrose 112 mls @ 100 mls/hr IVPB Q8H-IV [facility] Last Admin: 04/20/19 02:24 Dose: 100 mls/hr Levothyroxine Sodium (Synthroid -) 75 mcg PO DAILY@0700 [facility] Last Admin: 04/20/19 06:00 Dose: 75 mcg Neomycin/Polymyxin/Hydrocortisone (Cortisporin Otic Suspenstion -) 4 drop Q6HPO [facility] Last Admin: 04/20/19 05:15 Dose: 4 drop Nystatin (Nystop Powder -) 1 applic TP BID [facility] Last Admin: 04/19/19 21:37 Dose: 1 applic Pantoprazole Sodium (Protonix -) 40 mg PO DAILY [facility] Last Admin: 04/19/19 09:38 Dose: 40 mg Potassium Chloride (K-Dur -) 10 meq PO DAILY [facility] Last Admin: 04/19/19 09:38 Dose: 10 meq Tobramycin Sulfate (Tobrex Ophthalmic Solution -) 1 drop OD TID [facility] Last Admin: 04/20/19 05:16 Dose: 1 drop - Objective Vital Signs: Vital Signs Temperature 98.7 F 04/20/19 06:00 Pulse Rate 86 04/20/19 06:00 Respiratory Rate 20 04/20/19 06:00 Blood Pressure 117/62 04/20/19 06:00 O2 Sat by Pulse Oximetry (%) 100 04/19/19 20:06 Constitutional: Yes: Calm Eyes: Yes: WNL HENT: Yes: WNL Neck: Yes: WNL Cardiovascular: Yes: S1, S2 Respiratory: Yes: Regular Gastrointestinal: Yes: Soft ...Rectal Exam: Yes: Deferred Genitourinary: No: Anuria Breast(s): Yes: WNL Musculoskeletal: Yes: Muscle Weakness Extremities: Yes: WNL Edema: No Peripheral Pulses WNL: Yes Integumentary: Yes: Skin Tear (under left breast), Other Neurological: Yes: Alert, Oriented, Weakness Psychiatric: Yes: Alert, Oriented, Other (depressed) Labs: CBC, BMP 04/18/19 05:40 INR, PTT INR 1.11 (0.83-1.09) H 04/15/19 15:15 - ....Imaging Other: Image Reviewed (telemetry: NSR: no arrhythmias) Problem List - Problems (1) Hypokalemia Assessment/Plan: Repleted; and keep 4-4.5. F/u all other electrolytes; keep Mg 2.0-2.4. Code(s): E87.6 - HYPOKALEMIA (2) Syncope Assessment/Plan: orthostatic vital signs Maintain hydration (on IV fluids); f/u diarrhea. F/u BUN (increased on admission ; now WNL)/Cr. Carotid artery US 01/18: at least moderate bilateral atherosclerotic plaque ( bifurcations); no significant stenoses. CAT 12/2018: no PE. ECHO: normal LVEF and chamber sizes; no aortic stenosis noted. Code(s): R55 - SYNCOPE AND COLLAPSE (3) HTN (hypertension) Code(s): I10 - ESSENTIAL (PRIMARY) HYPERTENSION Qualifiers: Hypertension type: unspecified Qualified Code(s): I10 - Essential (primary ) hypertension (4) Multiple myeloma Code(s): C90.00 - MULTIPLE MYELOMA NOT HAVING ACHIEVED REMISSION Qualifiers: Multiple myeloma remission status: not in remission Qualified Code(s): C90.00 - Multiple myeloma not having achieved remission (5) Weakness Code(s): R53.1 - WEAKNESS (6) Weight loss Code(s): R63.4 - ABNORMAL WEIGHT LOSS (7) Hypoalbuminemia Code(s): E88.09 - OTH DISORDERS OF PLASMA-PROTEIN METABOLISM, NEC (8) Gout Code(s): M10.9 - GOUT, UNSPECIFIED (9) Shingles Assessment/Plan: On Valtrex. Code(s): B02.9 - ZOSTER WITHOUT COMPLICATIONS (10) Hypothyroidism Assessment/Plan: On Synthroid; TSH WNL recently. Code(s): E03.9 - HYPOTHYROIDISM, UNSPECIFIED Qualifiers: Hypothyroidism type: acquired Qualified Code(s): E03.9 - Hypothyroidism, unspecified (11) HLD (hyperlipidemia) Assessment/Plan: on atorvastatin. Code(s): E78.5 - HYPERLIPIDEMIA, UNSPECIFIED Qualifiers: Hyperlipidemia type: unspecified Qualified Code(s): E78.5 - Hyperlipidemia , unspecified (12) ASHD (arteriosclerotic heart disease) Assessment/Plan: s/p NSTEMI ?12/2018--> "one stent" at [facility] 12/2018; f/u records. On ASA, clopidogrel, atorvastatin. Consider metoprolol, if BP allows (s/p IN; frequent APCs; HTN). Code(s): I25.10 - ATHSCL HEART DISEASE OF [place] CORONARY ARTERY W/O ANG PCTRS (13) Depression Assessment/Plan: Pt says she is deeply depressed over her health, as well as the deaths of two daughters. She was on Paxil in the past. She requests to speak with a psychiatrist/psychologist. Code(s): F32.9 - MAJOR DEPRESSIVE DISORDER, SINGLE EPISODE, UNSPECIFIED (14) Sepsis Assessment/Plan: on Vancomycin Code(s): A41.9 - SEPSIS, UNSPECIFIED ORGANISM
--- NOTE | 2019-04-20 07:17 | PN ---
Progress Note, Physician Chief Complaint: Pt A&Ox3; periods of depression. No chest pain, except at site of left skin tear under left breast. History of Present Illness: The patient is a 74-year-old black female, with a past medical history of HTN, HLD, [place], diastolic CHF, multiple myeloma (on Velcade and Revlamide), severe depression (was on Paxil), who presents to the ED s/p 2 syncopal episodes on day of admission. The patient was having blood drawn during a routine visit with her oncologist when she suddenly became dizzy and lightheaded and subsequently lost consciousness. Patient was seated when she lost consciousness. Denies any head trauma. Rapid response was called and upon arrival of the ED team, the patient was witnessed to have another syncopal episode. Patient does not recall the incident. She denies ever having CP/SOB/ palpitations. Denies F/C. Had one episode of diarrhea this morning, no vomiting. Denies abdominal pain. - Current Medication List Current Medications: Active Medications Acetaminophen (Tylenol -) 650 mg PO Q6H PRN PRN Reason: PAIN LEVEL 6-10 Last Admin: 04/19/19 21:29 Dose: 650 mg Allopurinol (Zyloprim -) 300 mg PO DAILY [facility] Last Admin: 04/19/19 09:39 Dose: 300 mg Aspirin (Asa -) 81 mg PO DAILY [facility] Last Admin: 04/19/19 09:39 Dose: 81 mg Atorvastatin Calcium (Lipitor -) 40 mg PO HS [facility] Last Admin: 04/19/19 21:29 Dose: 40 mg Clopidogrel Bisulfate (Plavix -) 75 mg PO DAILY [facility] Last Admin: 04/19/19 09:38 Dose: 75 mg Escitalopram Oxalate (Lexapro -) 10 mg PO DAILY [facility] Last Admin: 04/19/19 09:39 Dose: 10 mg Fluconazole (Diflucan -) 100 mg PO DAILY [facility] Last Admin: 04/19/19 09:39 Dose: 100 mg Heparin Sodium (Porcine) (Heparin -) 5,000 unit SQ BID [facility] Last Admin: 04/19/19 21:29 Dose: 5,000 unit Vancomycin HCl (Vancomycin (Pre-Docked)) 1,000 mg in 250 mls @ 166.667 mls/hr IVPB Q12H [facility]; Protocol Last Admin: 04/20/19 03:51 Dose: 166.667 mls/hr Acyclovir 600 mg/ Dextrose 112 mls @ 100 mls/hr IVPB Q8H-IV [facility] Last Admin: 04/20/19 02:24 Dose: 100 mls/hr Levothyroxine Sodium (Synthroid -) 75 mcg PO DAILY@0700 [facility] Last Admin: 04/20/19 06:00 Dose: 75 mcg Neomycin/Polymyxin/Hydrocortisone (Cortisporin Otic Suspenstion -) 4 drop Q6HPO [facility] Last Admin: 04/20/19 05:15 Dose: 4 drop Nystatin (Nystop Powder -) 1 applic TP BID [facility] Last Admin: 04/19/19 21:37 Dose: 1 applic Pantoprazole Sodium (Protonix -) 40 mg PO DAILY [facility] Last Admin: 04/19/19 09:38 Dose: 40 mg Potassium Chloride (K-Dur -) 10 meq PO DAILY [facility] Last Admin: 04/19/19 09:38 Dose: 10 meq Tobramycin Sulfate (Tobrex Ophthalmic Solution -) 1 drop OD TID [facility] Last Admin: 04/20/19 05:16 Dose: 1 drop - Objective Vital Signs: Vital Signs Temperature 98.7 F 04/20/19 06:00 Pulse Rate 86 04/20/19 06:00 Respiratory Rate 20 04/20/19 06:00 Blood Pressure 117/62 04/20/19 06:00 O2 Sat by Pulse Oximetry (%) 100 04/19/19 20:06 Constitutional: Yes: Anxious, Thin Eyes: Yes: WNL HENT: Yes: WNL Neck: Yes: WNL Cardiovascular: Yes: WNL Respiratory: Yes: WNL Gastrointestinal: Yes: Soft ...Rectal Exam: Yes: Deferred Genitourinary: No: Anuria Breast(s): Yes: Other (skin tear under left breast for weeks (and scar under right breast)) Extremities: Yes: WNL Edema: No Peripheral Pulses WNL: Yes Integumentary: Yes: Skin Tear Wound/Incision: Yes: Open to air Neurological: Yes: Alert, Oriented, Weakness Psychiatric: Yes: Alert, Oriented, Other (depression) Labs: CBC, BMP 04/18/19 05:40 INR, PTT INR 1.11 (0.83-1.09) H 04/15/19 15:15 Problem List - Problems (1) Syncope Assessment/Plan: No further episodes. Maintain hydration. ECHO: normal LVEF; abnormal diastolic compliance. Code(s): R55 - SYNCOPE AND COLLAPSE (2) HTN (hypertension) Code(s): I10 - ESSENTIAL (PRIMARY) HYPERTENSION Qualifiers: Hypertension type: unspecified Qualified Code(s): I10 - Essential (primary ) hypertension (3) Multiple myeloma Code(s): C90.00 - MULTIPLE MYELOMA NOT HAVING ACHIEVED REMISSION Qualifiers: Multiple myeloma remission status: not in remission Qualified Code(s): C90.00 - Multiple myeloma not having achieved remission (4) Weakness Code(s): R53.1 - WEAKNESS (5) Weight loss Code(s): R63.4 - ABNORMAL WEIGHT LOSS (6) Hypoalbuminemia Code(s): E88.09 - OTH DISORDERS OF PLASMA-PROTEIN METABOLISM, NEC (7) Gout Code(s): M10.9 - GOUT, UNSPECIFIED (8) Shingles Assessment/Plan: On Valtrex; treat skin wounds under left breast. Code(s): B02.9 - ZOSTER WITHOUT COMPLICATIONS (9) Hypothyroidism Code(s): E03.9 - HYPOTHYROIDISM, UNSPECIFIED Qualifiers: Hypothyroidism type: acquired Qualified Code(s): E03.9 - Hypothyroidism, unspecified (10) HLD (hyperlipidemia) Code(s): E78.5 - HYPERLIPIDEMIA, UNSPECIFIED Qualifiers: Hyperlipidemia type: unspecified Qualified Code(s): E78.5 - Hyperlipidemia , unspecified (11) ASHD (arteriosclerotic heart disease) Code(s): I25.10 - ATHSCL HEART DISEASE OF [place] CORONARY ARTERY W/O ANG PCTRS (12) Depression Assessment/Plan: Pt says she is deeply depressed over her health, as well as from the deaths of two daughters. She was on Paxil in the past. She awaits psychiatrist/psychologist. Code(s): F32.9 - MAJOR DEPRESSIVE DISORDER, SINGLE EPISODE, UNSPECIFIED
--- NOTE | 2019-04-20 07:17 | PN ---
Progress Note, Physician Chief Complaint: Pt A&Ox3; continues to have pain under left breast (skin wound). History of Present Illness: The patient is a 74-year-old black female, with a past medical history of HTN, HLD, [place], diastolic CHF, multiple myeloma (on Velcade and Revlamide), severe depression (was on Paxil), who presents to the ED s/p 2 syncopal episodes today. The patient was having blood drawn during a routine visit with her oncologist when she suddenly became dizzy and lightheaded and subsequently lost consciousness. Patient was seated when she lost consciousness. Denies any head trauma. Rapid response was called and upon arrival of the ED team, the patient was witnessed to have another syncopal episode. Patient does not recall the incident. She denies ever having CP/SOB/palpitations. Denies F/C. Had one episode of diarrhea this morning, no vomiting. Denies abdominal pain. - Current Medication List Current Medications: Active Medications Acetaminophen (Tylenol -) 650 mg PO Q6H PRN PRN Reason: PAIN LEVEL 6-10 Last Admin: 04/19/19 21:29 Dose: 650 mg Allopurinol (Zyloprim -) 300 mg PO DAILY [facility] Last Admin: 04/19/19 09:39 Dose: 300 mg Aspirin (Asa -) 81 mg PO DAILY [facility] Last Admin: 04/19/19 09:39 Dose: 81 mg Atorvastatin Calcium (Lipitor -) 40 mg PO HS [facility] Last Admin: 04/19/19 21:29 Dose: 40 mg Clopidogrel Bisulfate (Plavix -) 75 mg PO DAILY [facility] Last Admin: 04/19/19 09:38 Dose: 75 mg Escitalopram Oxalate (Lexapro -) 10 mg PO DAILY [facility] Last Admin: 04/19/19 09:39 Dose: 10 mg Fluconazole (Diflucan -) 100 mg PO DAILY [facility] Last Admin: 04/19/19 09:39 Dose: 100 mg Heparin Sodium (Porcine) (Heparin -) 5,000 unit SQ BID [facility] Last Admin: 04/19/19 21:29 Dose: 5,000 unit Vancomycin HCl (Vancomycin (Pre-Docked)) 1,000 mg in 250 mls @ 166.667 mls/hr IVPB Q12H [facility]; Protocol Last Admin: 04/20/19 03:51 Dose: 166.667 mls/hr Acyclovir 600 mg/ Dextrose 112 mls @ 100 mls/hr IVPB Q8H-IV [facility] Last Admin: 04/20/19 02:24 Dose: 100 mls/hr Levothyroxine Sodium (Synthroid -) 75 mcg PO DAILY@0700 [facility] Last Admin: 04/20/19 06:00 Dose: 75 mcg Neomycin/Polymyxin/Hydrocortisone (Cortisporin Otic Suspenstion -) 4 drop Q6HPO [facility] Last Admin: 04/20/19 05:15 Dose: 4 drop Nystatin (Nystop Powder -) 1 applic TP BID [facility] Last Admin: 04/19/19 21:37 Dose: 1 applic Pantoprazole Sodium (Protonix -) 40 mg PO DAILY [facility] Last Admin: 04/19/19 09:38 Dose: 40 mg Potassium Chloride (K-Dur -) 10 meq PO DAILY [facility] Last Admin: 04/19/19 09:38 Dose: 10 meq Tobramycin Sulfate (Tobrex Ophthalmic Solution -) 1 drop OD TID [facility] Last Admin: 04/20/19 05:16 Dose: 1 drop - Objective Vital Signs: Vital Signs Temperature 98.7 F 04/20/19 06:00 Pulse Rate 86 04/20/19 06:00 Respiratory Rate 20 04/20/19 06:00 Blood Pressure 117/62 04/20/19 06:00 O2 Sat by Pulse Oximetry (%) 100 04/19/19 20:06 Constitutional: Yes: Other (sad) Eyes: Yes: WNL HENT: Yes: WNL Neck: Yes: WNL Cardiovascular: Yes: Regular Rate and Rhythm Respiratory: Yes: WNL Gastrointestinal: Yes: Soft ...Rectal Exam: Yes: Deferred Genitourinary: Yes: Anuria Breast(s): Yes: WNL Musculoskeletal: Yes: Muscle Weakness Extremities: Yes: WNL Edema: No Peripheral Pulses WNL: Yes Integumentary: Yes: Skin Tear (under left breast) Wound/Incision: Yes: Open to air Neurological: Yes: Alert, Oriented, Weakness Psychiatric: Yes: WNL Labs: CBC, BMP 04/18/19 05:40 INR, PTT INR 1.11 (0.83-1.09) H 04/15/19 15:15 Problem List - Problems (1) Syncope Assessment/Plan: orthostatic vital signs Maintain hydration (on IV fluids); f/u diarrhea. F/u BUN (increased on admission ; now WNL)/Cr. Carotid artery US 01/18: at least moderate bilateral atherosclerotic plaque ( bifurcations); no significant stenoses. CAT 12/2018: no PE. ECHO: normal LVEF and chamber sizes; no aortic stenosis noted. Code(s): R55 - SYNCOPE AND COLLAPSE (2) HTN (hypertension) Code(s): I10 - ESSENTIAL (PRIMARY) HYPERTENSION Qualifiers: Hypertension type: unspecified Qualified Code(s): I10 - Essential (primary ) hypertension (3) Multiple myeloma Code(s): C90.00 - MULTIPLE MYELOMA NOT HAVING ACHIEVED REMISSION Qualifiers: Multiple myeloma remission status: not in remission Qualified Code(s): C90.00 - Multiple myeloma not having achieved remission (4) Weakness Code(s): R53.1 - WEAKNESS (5) Weight loss Code(s): R63.4 - ABNORMAL WEIGHT LOSS (6) Hypoalbuminemia Code(s): E88.09 - OTH DISORDERS OF PLASMA-PROTEIN METABOLISM, NEC (7) Gout Code(s): M10.9 - GOUT, UNSPECIFIED (8) Shingles Assessment/Plan: On Valtrex. Code(s): B02.9 - ZOSTER WITHOUT COMPLICATIONS (9) Hypothyroidism Assessment/Plan: On Synthroid; TSH WNL recently. Code(s): E03.9 - HYPOTHYROIDISM, UNSPECIFIED Qualifiers: Hypothyroidism type: acquired Qualified Code(s): E03.9 - Hypothyroidism, unspecified (10) HLD (hyperlipidemia) Assessment/Plan: on atorvastatin; LDL 117 mg/dl (keep <70) Code(s): E78.5 - HYPERLIPIDEMIA, UNSPECIFIED Qualifiers: Hyperlipidemia type: unspecified Qualified Code(s): E78.5 - Hyperlipidemia , unspecified (11) ASHD (arteriosclerotic heart disease) Assessment/Plan: s/p NSTEMI ?12/2018--> "one stent" at [facility] 12/2018; f/u records. On ASA, clopidogrel, atorvastatin. Consider metoprolol, if BP allows (s/p [place]; frequent APCs; HTN). Code(s): I25.10 - ATHSCL HEART DISEASE OF [place] CORONARY ARTERY W/O ANG PCTRS (12) Depression Code(s): F32.9 - MAJOR DEPRESSIVE DISORDER, SINGLE EPISODE, UNSPECIFIED
[2019-04-20 07:39] LABS: HEMATOCRIT 27.8 % (32.4-45.2); HEMOGLOBIN 9.4 GM/dL (10.7-15.3); MCH 32.5 pg (25.7-33.7); MEAN CELL VOLUME 95.7 fl (80-96); MEAN PLT VOLUME 8.5 fl (7.5-11.1); PLATELET COUNT 213 K/MM3 (134-434); RDW 16.7 % (11.6-15.6)
[2019-04-20] MEDS: HEPARIN NA (PORCINE) 5,000 UNITS/ML 1ML VIAL SQ SCH ×2 (10:02→21:00)
[2019-04-20] MEDS: ASPIRIN 81 MG CHEWABLE TABLETS PO SCH (10:02)
[2019-04-20] MEDS: PANTOPRAZOLE 40 MG TABLET (FP) PO SCH (10:03)
[2019-04-20] MEDS: ALLOPURINOL 300 MG TABLET (FP) PO SCH (10:03)
[2019-04-20] MEDS: POTASSIUM CHLORIDE TABS 10 MEQ TABLET.ER (FP) PO SCH (10:03)
[2019-04-20] MEDS: CLOPIDOGREL BISULFATE 75 MG TABLET (FP) PO SCH (10:03)
[2019-04-20] MEDS: ESCITALOPRAM OXALATE 10 MG TABLET (FP) PO SCH (10:04)
[2019-04-20] MEDS: NYSTATIN POWDER 100,000 UNITS/GM - 15 GM TOPICAL POWDER TP SCH ×2 (10:04→21:00)
[2019-04-20] MEDS: FLUCONAZOLE 100 MG TABLET (UD) PO SCH (10:04)
[2019-04-20 10:32] LABS: ANISOCYTOSIS 1+; MACROCYTOSIS 1+; PLATELET ESTIMATE NORMAL
--- NOTE | 2019-04-20 10:43 | PN ---
Progress Note, Physician History of Present Illness: Pt seen and examined at bedside. She is awake and alert. She complains of lower ext edema. - Current Medication List Current Medications: Active Medications Acetaminophen (Tylenol -) 650 mg PO Q6H PRN PRN Reason: PAIN LEVEL 6-10 Last Admin: 04/19/19 21:29 Dose: 650 mg Allopurinol (Zyloprim -) 300 mg PO DAILY [facility] Last Admin: 04/20/19 10:03 Dose: 300 mg Aspirin (Asa -) 81 mg PO DAILY [facility] Last Admin: 04/20/19 10:02 Dose: 81 mg Atorvastatin Calcium (Lipitor -) 40 mg PO HS [facility] Last Admin: 04/19/19 21:29 Dose: 40 mg Clopidogrel Bisulfate (Plavix -) 75 mg PO DAILY [facility] Last Admin: 04/20/19 10:03 Dose: 75 mg Escitalopram Oxalate (Lexapro -) 10 mg PO DAILY [facility] Last Admin: 04/20/19 10:04 Dose: 10 mg Fluconazole (Diflucan -) 100 mg PO DAILY [facility] Last Admin: 04/20/19 10:04 Dose: 100 mg Heparin Sodium (Porcine) (Heparin -) 5,000 unit SQ BID [facility] Last Admin: 04/20/19 10:02 Dose: 5,000 unit Vancomycin HCl (Vancomycin (Pre-Docked)) 1,000 mg in 250 mls @ 166.667 mls/hr IVPB Q12H [facility]; Protocol Last Admin: 04/20/19 03:51 Dose: 166.667 mls/hr Acyclovir 600 mg/ Dextrose 112 mls @ 100 mls/hr IVPB Q8H-IV [facility] Last Admin: 04/20/19 10:03 Dose: 100 mls/hr Levothyroxine Sodium (Synthroid -) 75 mcg PO DAILY@0700 [facility] Last Admin: 04/20/19 06:00 Dose: 75 mcg Neomycin/Polymyxin/Hydrocortisone (Cortisporin Otic Suspenstion -) 4 drop Q6HPO [facility] Last Admin: 04/20/19 05:15 Dose: 4 drop Nystatin (Nystop Powder -) 1 applic TP BID [facility] Last Admin: 04/20/19 10:04 Dose: 1 applic Pantoprazole Sodium (Protonix -) 40 mg PO DAILY [facility] Last Admin: 04/20/19 10:03 Dose: 40 mg Potassium Chloride (K-Dur -) 10 meq PO DAILY [facility] Last Admin: 04/20/19 10:03 Dose: 10 meq Tobramycin Sulfate (Tobrex Ophthalmic Solution -) 1 drop OD TID [facility] Last Admin: 04/20/19 05:16 Dose: 1 drop - Objective Vital Signs: Vital Signs Temperature 98.6 F 04/20/19 08:51 Pulse Rate 75 04/20/19 08:51 Respiratory Rate 16 04/20/19 08:51 Blood Pressure 125/71 04/20/19 08:51 O2 Sat by Pulse Oximetry (%) 100 04/19/19 20:06 Constitutional: Yes: Calm Eyes: Yes: Conjunctiva Clear HENT: Yes: Atraumatic Neck: Yes: Supple Cardiovascular: Yes: S1, S2 Gastrointestinal: Yes: WNL Genitourinary: Yes: WNL Musculoskeletal: Yes: WNL Edema: Yes Edema: LLE: Trace, RLE: Trace Neurological: Yes: Oriented Psychiatric: Yes: Oriented Labs: CBC, BMP 04/20/19 05:40 04/18/19 05:40 INR, PTT INR 1.11 (0.83-1.09) H 04/15/19 15:15 Problem List - Problems (1) Hypokalemia Code(s): E87.6 - HYPOKALEMIA Assessment/Plan Current Medications Generic Name Dose Route Start Last Admin Trade Name Freq PRN Reason Stop Dose Admin Acetaminophen 650 mg 04/14/19 22:01 04/19/19 21:29 Tylenol - PO 650 mg Q6H PRN Administration PAIN LEVEL 6-10 Allopurinol 300 mg 04/14/19 10:00 04/20/19 10:03 Zyloprim - PO 300 mg DAILY [facility] Administration Aspirin 81 mg 04/14/19 10:00 04/20/19 10:02 Asa - PO 81 mg DAILY [facility] Administration Atorvastatin Calcium 40 mg 04/13/19 22:00 04/19/19 21:29 Lipitor - PO 40 mg HS [facility] Administration Clopidogrel Bisulfate 75 mg 04/14/19 10:00 04/20/19 10:03 Plavix - PO 75 mg DAILY [facility] Administration Escitalopram Oxalate 10 mg 04/16/19 10:00 04/20/19 10:04 Lexapro - PO 10 mg DAILY [facility] Administration Fluconazole 100 mg 04/14/19 22:00 04/20/19 10:04 Diflucan - PO 100 mg DAILY [facility] Administration Heparin Sodium (Porcine) 5,000 unit 04/13/19 22:00 04/20/19 10:02 Heparin - SQ 5,000 unit BID [facility] Administration Vancomycin HCl 1,000 mg in 250 mls @ 166.667 mls/hr 04/18/19 16:45 04/20/19 03:51 Vancomycin (Pre-Docked) IVPB 166.667 mls/hr Q12H [facility] Administration Protocol Acyclovir 600 mg/ Dextrose 112 mls @ 100 mls/hr 04/18/19 18:00 04/20/19 10:03 IVPB 100 mls/hr Q8H-IV [facility] Administration Levothyroxine Sodium 75 mcg 04/14/19 07:00 04/20/19 06:00 Synthroid - PO 75 mcg DAILY@0700 [facility] Administration Neomycin/Polymyxin/Hydrocortisone 4 drop 04/20/19 06:00 04/20/19 05:15 Cortisporin Otic Suspenstion - 4 drop Q6HPO [facility] Administration Nystatin 1 applic 04/14/19 22:00 04/20/19 10:04 Nystop Powder - TP 1 applic BID [facility] Administration Pantoprazole Sodium 40 mg 04/14/19 10:00 04/20/19 10:03 Protonix - PO 40 mg DAILY [facility] Administration Potassium Chloride 10 meq 04/14/19 10:00 04/20/19 10:03 K-Dur - PO 10 meq DAILY [facility] Administration Tobramycin Sulfate 1 drop 04/17/19 22:00 04/20/19 05:16 Tobrex Ophthalmic Solution - OD 1 drop TID [facility] Administration Impression 1. proteinuria 2. multiple myeloma 3. amyloid 4. syncope 5. hypotension 6. HLD 7. hypothyroidism 8. anemia 9. CKD 10. hypokalemia Plan - cxr reviewed - will give 20 mg of lasix - monitor volumes status - monitor bp
[2019-04-20] MEDS ORDERED: FUROSEMIDE 20 MG TABLET (FP) PO ONE (11:00)
--- NOTE | 2019-04-20 11:05 | PN ---
Progress Note, Physician History of Present Illness: The patient is a 74-year-old female, with a past medical history of HTN, HLD, [place] , CHF, multiple myeloma (on Velcade and Revlamide), who presents to the ED s/p 2 syncopal episodes today. The patient was having blood drawn during a routine visit with her oncologist when she suddenly became dizzy and lightheaded and subsequently lost consciousness. Patient was seated when she lost consciousness. Denies any head trauma. Rapid response was called and upon arrival of the ED team, the patient was witnessed to have another syncopal episode. Patient does not recall the incident. She denies ever having CP/SOB/ palpitations. Denies F/C. Had one episode of diarrhea this morning, no vomiting. Denies abdominal pain. PMH h/o CAD (NSTEMI; s/p HOLLY D1), Chronic systolic CHF, mildly reduced LV function with EF 45%, HTN, Hyperlipidemia,depression, Asthma, hiatal hernia, rectal polyp , Renal Insufficiency, proteinuria, Multiple Myeloma on velcade/decadron, revlamide, anemia, ?gout, and Hypothyroidism, - Current Medication List Current Medications: Active Medications Acetaminophen (Tylenol -) 650 mg PO Q6H PRN PRN Reason: PAIN LEVEL 6-10 Last Admin: 04/19/19 21:29 Dose: 650 mg Allopurinol (Zyloprim -) 300 mg PO DAILY [facility] Last Admin: 04/20/19 10:03 Dose: 300 mg Aspirin (Asa -) 81 mg PO DAILY [facility] Last Admin: 04/20/19 10:02 Dose: 81 mg Atorvastatin Calcium (Lipitor -) 40 mg PO HS [facility] Last Admin: 04/19/19 21:29 Dose: 40 mg Clopidogrel Bisulfate (Plavix -) 75 mg PO DAILY [facility] Last Admin: 04/20/19 10:03 Dose: 75 mg Escitalopram Oxalate (Lexapro -) 10 mg PO DAILY [facility] Last Admin: 04/20/19 10:04 Dose: 10 mg Fluconazole (Diflucan -) 100 mg PO DAILY [facility] Last Admin: 04/20/19 10:04 Dose: 100 mg Heparin Sodium (Porcine) (Heparin -) 5,000 unit SQ BID [facility] Last Admin: 04/20/19 10:02 Dose: 5,000 unit Vancomycin HCl (Vancomycin (Pre-Docked)) 1,000 mg in 250 mls @ 166.667 mls/hr IVPB Q12H [facility]; Protocol Last Admin: 04/20/19 03:51 Dose: 166.667 mls/hr Acyclovir 600 mg/ Dextrose 112 mls @ 100 mls/hr IVPB Q8H-IV [facility] Last Admin: 04/20/19 10:03 Dose: 100 mls/hr Levothyroxine Sodium (Synthroid -) 75 mcg PO DAILY@0700 [facility] Last Admin: 04/20/19 06:00 Dose: 75 mcg Neomycin/Polymyxin/Hydrocortisone (Cortisporin Otic Suspenstion -) 4 drop Q6HPO [facility] Last Admin: 04/20/19 05:15 Dose: 4 drop Nystatin (Nystop Powder -) 1 applic TP BID [facility] Last Admin: 04/20/19 10:04 Dose: 1 applic Pantoprazole Sodium (Protonix -) 40 mg PO DAILY [facility] Last Admin: 04/20/19 10:03 Dose: 40 mg Potassium Chloride (K-Dur -) 10 meq PO DAILY [facility] Last Admin: 04/20/19 10:03 Dose: 10 meq Tobramycin Sulfate (Tobrex Ophthalmic Solution -) 1 drop OD TID [facility] Last Admin: 04/20/19 05:16 Dose: 1 drop - Objective Vital Signs: Vital Signs Temperature 98.6 F 04/20/19 08:51 Pulse Rate 75 04/20/19 08:51 Respiratory Rate 16 04/20/19 08:51 Blood Pressure 125/71 04/20/19 08:51 O2 Sat by Pulse Oximetry (%) 100 04/19/19 20:06 Eyes: Yes: WNL, Conjunctiva Clear, EOM Intact HENT: Yes: WNL, Atraumatic, Normocephalic Neck: Yes: WNL, Supple, Trachea Midline Cardiovascular: Yes: WNL, Regular Rate and Rhythm Respiratory: Yes: WNL, Regular, CTA Bilaterally Gastrointestinal: Yes: WNL, Normal Bowel Sounds Genitourinary: Yes: WNL Musculoskeletal: Yes: WNL Extremities: Yes: WNL Edema: No Integumentary: Yes: WNL Neurological: Yes: WNL, Alert, Oriented ...Motor Strength: WNL Psychiatric: Yes: WNL Labs: CBC, BMP 04/20/19 05:40 04/18/19 05:40 INR, PTT INR 1.11 (0.83-1.09) H 04/15/19 15:15 Problem List - Problems (1) Syncope Code(s): R55 - SYNCOPE AND COLLAPSE (2) CINTIA positive Code(s): R76.8 - OTHER SPECIFIED ABNORMAL IMMUNOLOGICAL FINDINGS IN SERUM (3) ASHD (arteriosclerotic heart disease) Code(s): I25.10 - ATHSCL HEART DISEASE OF [place] CORONARY ARTERY W/O ANG PCTRS (4) Abnormal ECG Code(s): R94.31 - ABNORMAL ELECTROCARDIOGRAM [ECG] [EKG] (5) Acute exacerbation of CHF (congestive heart failure) Code(s): I50.9 - HEART FAILURE, UNSPECIFIED (6) Acute on chronic renal failure Code(s): N17.9 - ACUTE KIDNEY FAILURE, UNSPECIFIED; N18.9 - CHRONIC KIDNEY DISEASE, UNSPECIFIED Qualifiers: Chronic kidney disease stage: stage 2 (mild) (7) Acute on chronic systolic CHF (congestive heart failure) Code(s): I50.23 - ACUTE ON CHRONIC SYSTOLIC (CONGESTIVE) HEART FAILURE (8) Acute respiratory failure Code(s): J96.00 - ACUTE RESPIRATORY FAILURE, UNSP W HYPOXIA OR HYPERCAPNIA (9) Adult onset hypothyroidism Code(s): E03.8 - OTHER SPECIFIED HYPOTHYROIDISM (10) Anemia Code(s): D64.9 - ANEMIA, UNSPECIFIED (11) Anemia Code(s): D64.9 - ANEMIA, UNSPECIFIED Qualifiers: Chronic kidney disease stage: unspecified stage (12) Anemia Code(s): D64.9 - ANEMIA, UNSPECIFIED Qualifiers: Anemia type: unspecified type Qualified Code(s): D64.9 - Anemia, unspecified (13) Anemia Code(s): D64.9 - ANEMIA, UNSPECIFIED Qualifiers: Chronic kidney disease stage: unspecified stage (14) Anxiety Code(s): F41.9 - ANXIETY DISORDER, UNSPECIFIED (15) Asymptomatic bacteriuria Code(s): R82.71 - BACTERIURIA (16) CAD (coronary artery disease) Code(s): I25.10 - ATHSCL HEART DISEASE OF [place] CORONARY ARTERY W/O ANG PCTRS Qualifiers: (17) CHF (congestive heart failure) Code(s): I50.9 - HEART FAILURE, UNSPECIFIED Qualifiers: Heart failure type: systolic Heart failure chronicity: unspecified Qualified Code(s): I50.20 - Unspecified systolic (congestive) heart failure (18) CKD (chronic kidney disease) Code(s): N18.9 - CHRONIC KIDNEY DISEASE, UNSPECIFIED (19) Chest pain Code(s): R07.9 - CHEST PAIN, UNSPECIFIED Qualifiers: Chest pain type: unspecified Qualified Code(s): R07.9 - Chest pain, unspecified (20) Cough Code(s): R05 - COUGH (21) Dehydration Code(s): E86.0 - DEHYDRATION (22) Diarrhea Code(s): R19.7 - DIARRHEA, UNSPECIFIED Qualifiers: Diarrhea type: unspecified type Qualified Code(s): R19.7 - Diarrhea, unspecified (23) Diarrhea Code(s): R19.7 - DIARR[place]A, UNSPECIFIED Qualifiers: Diarrhea type: unspecified type Qualified Code(s): R19.7 - Diarrhea, unspecified (24) Dizziness Code(s): R42 - DIZZINESS AND GIDDINESS (25) Elevated troponin Code(s): R74.8 - ABNORMAL LEVELS OF OTHER SERUM ENZYMES (26) Elevated troponin Code(s): R74.8 - ABNORMAL LEVELS OF OTHER SERUM ENZYMES (27) Elevated troponin I level Code(s): R74.8 - ABNORMAL LEVELS OF OTHER SERUM ENZYMES (28) Facial swelling Code(s): R22.0 - LOCALIZED SWELLING, MASS AND LUMP, HEAD (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 - HEREDITARY DEFICIENCY OF OTHER CLOTTING FACTORS (30) Fever Code(s): R50.9 - FEVER, UNSPECIFIED (31) Gastric wall thickening Code(s): K31.89 - OTHER DISEASES OF STOMACH AND DUODENUM (32) HLD (hyperlipidemia) Code(s): E78.5 - HYPERLIPIDEMIA, UNSPECIFIED Qualifiers: Hyperlipidemia type: unspecified Qualified Code(s): E78.5 - Hyperlipidemia , unspecified (33) HTN (hypertension) Code(s): I10 - ESSENTIAL (PRIMARY) HYPERTENSION Qualifiers: Hypertension type: unspecified Qualified Code(s): I10 - Essential (primary ) hypertension (34) Headache Code(s): R51 - HEADACHE (35) History of heart artery stent Code(s): Z95.5 - PRESENCE OF CORONARY ANGIOPLASTY IMPLANT AND GRAFT (36) Hypoalbuminemia Code(s): E88.09 - OTH DISORDERS OF PLASMA-PROTEIN METABOLISM, NEC (37) Hypotension Code(s): I95.9 - HYPOTENSION, UNSPECIFIED Qualifiers: Hypotension type: other hypotension type Qualified Code(s): I95.89 - Other hypotension (38) Hypothyroidism Code(s): E03.9 - HYPOTHYROIDISM, UNSPECIFIED Qualifiers: Hypothyroidism type: acquired Qualified Code(s): E03.9 - Hypothyroidism, unspecified (39) Hypothyroidism Code(s): E03.9 - HYPOTHYROIDISM, UNSPECIFIED (40) Lichen amyloidosus Code(s): E85.4 - ORGAN-LIMITED AMYLOIDOSIS; L99 - OTH DISORDERS OF SKIN, SUBCU IN DISEASES CLASSD ELSWHR (41) Loss of appetite Code(s): R63.0 - ANOREXIA (42) Multiple myeloma Code(s): C90.00 - MULTIPLE MYELOMA NOT HAVING ACHIEVED REMISSION Qualifiers: Multiple myeloma remission status: not in remission Qualified Code(s): C90.00 - Multiple myeloma not having achieved remission (43) Multiple myeloma Code(s): C90.00 - MULTIPLE MYELOMA NOT HAVING ACHIEVED REMISSION Qualifiers: Multiple myeloma remission status: not in remission Qualified Code(s): C90.00 - Multiple myeloma not having achieved remission (44) Multiple myeloma Code(s): C90.00 - MULTIPLE MYELOMA NOT HAVING ACHIEVED REMISSION (45) Multiple myeloma Code(s): C90.00 - MULTIPLE MYELOMA NOT HAVING ACHIEVED REMISSION (46) Otitis Code(s): H66.90 - OTITIS MEDIA, UNSPECIFIED, UNSPECIFIED EAR (47) Otitis externa Code(s): H60.90 - UNSPECIFIED OTITIS EXTERNA, UNSPECIFIED EAR Qualifiers: Otitis externa type: unspecified type Chronicity: acute Laterality: right Qualified Code(s): H60.501 - Unspecified acute noninfective otitis externa, right ear (48) Otitis media with rupture of tympanic membrane Code(s): H66.90 - OTITIS MEDIA, UNSPECIFIED, UNSPECIFIED EAR; H72.90 - UNSP PERFORATION OF TYMPANIC MEMBRANE, UNSPECIFIED EAR Qualifiers: Laterality: right Qualified Code(s): H66.91 - Otitis media, unspecified, right ear; H72.91 - Unspecified perforation of tympanic membrane, right ear (49) PAF (paroxysmal atrial fibrillation) Code(s): I48.0 - PAROXYSMAL ATRIAL FIBRILLATION (50) PHT (pulmonary hypertension) Code(s): I27.20 - PULMONARY HYPERTENSION, UNSPECIFIED (51) Penicillin allergy Code(s): Z88.0 - ALLERGY STATUS TO PENICILLIN (52) Pressure ulcer of sacral region, stage 1 Code(s): L89.151 - PRESSURE ULCER OF SACRAL REGION, STAGE 1 (53) Proteinuria Code(s): R80.9 - PROTEINURIA, UNSPECIFIED Qualifiers: Proteinuria type: persistent Qualified Code(s): R80.1 - Persistent proteinuria, unspecified (54) Rectal bleed Code(s): K62.5 - HEMORRHAGE OF ANUS AND RECTUM (55) Rectal pain Code(s): K62.89 - OTHER SPECIFIED DISEASES OF ANUS AND RECTUM (56) Renal dysfunction Code(s): N28.9 - DISORDER OF KIDNEY AND URETER, UNSPECIFIED (57) Respiratory insufficiency Code(s): R06.89 - OTHER ABNORMALITIES OF BREATHING (58) Troponin I above reference range Code(s): R74.8 - ABNORMAL LEVELS OF OTHER SERUM ENZYMES (59) Vomiting Code(s): R11.10 - VOMITING, UNSPECIFIED Qualifiers: Vomiting type: unspecified Vomiting Intractability: unspecified Nausea presence: unspecified Qualified Code(s): R11.10 - Vomiting, unspecified (60) Weakness Code(s): R53.1 - WEAKNESS (61) Weight loss Code(s): R63.4 - ABNORMAL WEIGHT LOSS Assessment/Plan Problems (1) Syncope Assessment/Plan: No further episodes. Maintain hydration. ECHO: normal LVEF; abnormal diastolic compliance. Code(s): R55 - SYNCOPE AND COLLAPSE (2) HTN (hypertension) Code(s): I10 - ESSENTIAL (PRIMARY) HYPERTENSION Qualifiers: Hypertension type: unspecified Qualified Code(s): I10 - Essential (primary ) hypertension (3) Multiple myeloma Code(s): C90.00 - MULTIPLE MYELOMA NOT HAVING ACHIEVED REMISSION Qualifiers: Multiple myeloma remission status: not in remission Qualified Code(s): C90.00 - Multiple myeloma not having achieved remission (4) Weakness Code(s): R53.1 - WEAKNESS (5) Weight loss Code(s): R63.4 - ABNORMAL WEIGHT LOSS (6) Hypoalbuminemia Code(s): E88.09 - OTH DISORDERS OF PLASMA-PROTEIN METABOLISM, NEC (7) Gout Code(s): M10.9 - GOUT, UNSPECIFIED (8) Shingles Code(s): B02.9 - ZOSTER WITHOUT COMPLICATIONS (9) Hypothyroidism Code(s): E03.9 - HYPOTHYROIDISM, UNSPECIFIED Qualifiers: Hypothyroidism type: acquired Qualified Code(s): E03.9 - Hypothyroidism, unspecified (10) HLD (hyperlipidemia) Code(s): E78.5 - HYPERLIPIDEMIA, UNSPECIFIED Qualifiers: Hyperlipidemia type: unspecified Qualified Code(s): E78.5 - Hyperlipidemia , unspecified (11) ASHD (arteriosclerotic heart disease) Code(s): I25.10 - ATHSCL HEART DISEASE OF [place] CORONARY ARTERY W/O ANG PCTRS (12) Depression Code(s): F32.9 - MAJOR DEPRESSIVE DISORDER, SINGLE EPISODE, UNSPECIFIED
--- NOTE | 2019-04-20 11:16 | EKG ---
Test Reason : Blood Pressure : / mmHG Vent. Rate : 075 BPM Atrial Rate : 075 BPM P-R Int : 172 ms QRS Dur : 098 ms QT Int : 390 ms P-R-T Axes : 054 -11 198 degrees QTc Int : 435 ms SINUS RHYTHM WITH FUSION COMPLEXES LEFT VENTRICULAR HYPERTROPHY WITH REPOLARIZATION ABNORMALITY CANNOT RULE OUT SEPTAL INFARCT (CITED ON OR BEFORE 13-APR-2019) ABNORMAL ECG WHEN COMPARED WITH ECG OF 13-APR-2019 09:45, FUSION COMPLEXES ARE NOW PRESENT Confirmed by CINDY PALMER, MELISSA ([id number]) on 04/20/2019 11:15:45 AM Referred By: Hilary HOSKINS Confirmed By:MELISSA WHITE MD
--- NOTE | 2019-04-20 18:17 | PN ---
Progress Note (short form) - Note Progress Note: Patient seen and examined No specific complains Afebrile Has been on antibiotics and antifungals x 7 days without fevers- ? discontinue per ID Last Vital Signs Temp Pulse Resp BP Pulse Ox 98.6 F 78 17 131/70 100 04/20/19 14:00 04/20/19 14:00 04/20/19 14:00 04/20/19 14:00 04/20/19 10:00 HEENT: ZOILA, EOM Intact Oropharynx: No thrush, No mucositis Cor: RSR, No murmurs, No gallops Lungs: Clear to P&A Abd: Soft, Normal bowel sounds, No organomegaly Ext:No significant edema Skin: No rashes, Integument intact CBC, BMP 04/20/19 05:40 04/18/19 05:40 Current Medications Generic Name Dose Route Start Last Admin Trade Name Freq PRN Reason Stop Dose Admin Acetaminophen 650 mg 04/14/19 22:01 04/19/19 21:29 Tylenol - PO 650 mg Q6H PRN Administration PAIN LEVEL 6-10 Allopurinol 300 mg 04/14/19 10:00 04/20/19 10:03 Zyloprim - PO 300 mg DAILY [facility] Administration Aspirin 81 mg 04/14/19 10:00 04/20/19 10:02 Asa - PO 81 mg DAILY [facility] Administration Atorvastatin Calcium 40 mg 04/13/19 22:00 04/19/19 21:29 Lipitor - PO 40 mg HS [facility] Administration Clopidogrel Bisulfate 75 mg 04/14/19 10:00 04/20/19 10:03 Plavix - PO 75 mg DAILY [facility] Administration Escitalopram Oxalate 10 mg 04/16/19 10:00 04/20/19 10:04 Lexapro - PO 10 mg DAILY [facility] Administration Fluconazole 100 mg 04/14/19 22:00 04/20/19 10:04 Diflucan - PO 100 mg DAILY [facility] Administration Heparin Sodium (Porcine) 5,000 unit 04/13/19 22:00 04/20/19 10:02 Heparin - SQ 5,000 unit BID [facility] Administration Vancomycin HCl 1,000 mg in 250 mls @ 166.667 mls/hr 04/18/19 16:45 04/20/19 16:25 Vancomycin (Pre-Docked) IVPB 166.667 mls/hr Q12H [facility] Administration Protocol Acyclovir 600 mg/ Dextrose 112 mls @ 100 mls/hr 04/18/19 18:00 04/20/19 10:03 IVPB 100 mls/hr Q8H-IV [facility] Administration Cefepime HCl 1 gm in 50 mls @ 100 mls/hr 04/20/19 22:00 Maxipime 1 Gm Premix Ivpb IVPB BID [facility] Protocol Levothyroxine Sodium 75 mcg 04/14/19 07:00 04/20/19 06:00 Synthroid - PO 75 mcg DAILY@0700 [facility] Administration Neomycin/Polymyxin/Hydrocortisone 4 drop 04/20/19 06:00 04/20/19 18:14 Cortisporin Otic Suspenstion - 4 drop Q6HPO [facility] Administration Nystatin 1 applic 04/14/19 22:00 04/20/19 10:04 Nystop Powder - TP 1 applic BID [facility] Administration Pantoprazole Sodium 40 mg 04/14/19 10:00 04/20/19 10:03 Protonix - PO 40 mg DAILY [facility] Administration Potassium Chloride 10 meq 04/14/19 10:00 04/20/19 10:03 K-Dur - PO 10 meq DAILY [facility] Administration Tobramycin Sulfate 1 drop 04/17/19 22:00 04/20/19 13:36 Tobrex Ophthalmic Solution - OD 1 drop TID [facility] Administration Impression: Myeloma/amyloid /proteinuria Anemia Leukopenia Antibiotics ID follow up ? d/c antibiotics
[2019-04-20] MEDS: ATORVASTATIN CA 20 MG TABLET (FP) PO SCH (20:59)
[2019-04-20] MEDS: ACETAMINOPHEN 325 MG TABLET (FP) PO PRN (21:00)
--- NOTE | 2019-04-20 21:48 | PN ---
Progress Note, Physician History of Present Illness: Pt is feeling better - Current Medication List Current Medications: Active Medications Acetaminophen (Tylenol -) 650 mg PO Q6H PRN PRN Reason: PAIN LEVEL 6-10 Last Admin: 04/20/19 21:00 Dose: 650 mg Allopurinol (Zyloprim -) 300 mg PO DAILY [facility] Last Admin: 04/20/19 10:03 Dose: 300 mg Aspirin (Asa -) 81 mg PO DAILY [facility] Last Admin: 04/20/19 10:02 Dose: 81 mg Atorvastatin Calcium (Lipitor -) 40 mg PO HS [facility] Last Admin: 04/20/19 20:59 Dose: 40 mg Clopidogrel Bisulfate (Plavix -) 75 mg PO DAILY [facility] Last Admin: 04/20/19 10:03 Dose: 75 mg Escitalopram Oxalate (Lexapro -) 10 mg PO DAILY [facility] Last Admin: 04/20/19 10:04 Dose: 10 mg Fluconazole (Diflucan -) 100 mg PO DAILY [facility] Last Admin: 04/20/19 10:04 Dose: 100 mg Guaifenesin (Robitussin -) 10 ml PO Q6H PRN PRN Reason: COUGH Heparin Sodium (Porcine) (Heparin -) 5,000 unit SQ BID [facility] Last Admin: 04/20/19 21:00 Dose: 5,000 unit Vancomycin HCl (Vancomycin (Pre-Docked)) 1,000 mg in 250 mls @ 166.667 mls/hr IVPB Q12H [facility]; Protocol Last Admin: 04/20/19 16:25 Dose: 166.667 mls/hr Acyclovir 600 mg/ Dextrose 112 mls @ 100 mls/hr IVPB Q8H-IV [facility] Last Admin: 04/20/19 18:50 Dose: 100 mls/hr Levothyroxine Sodium (Synthroid -) 75 mcg PO DAILY@0700 [facility] Last Admin: 04/20/19 06:00 Dose: 75 mcg Neomycin/Polymyxin/Hydrocortisone (Cortisporin Otic Suspenstion -) 4 drop AU Q6HPO [facility] Nystatin (Nystop Powder -) 1 applic TP BID [facility] Last Admin: 04/20/19 21:00 Dose: 1 applic Pantoprazole Sodium (Protonix -) 40 mg PO DAILY [facility] Last Admin: 04/20/19 10:03 Dose: 40 mg Potassium Chloride (K-Dur -) 10 meq PO DAILY [facility] Last Admin: 04/20/19 10:03 Dose: 10 meq Tobramycin Sulfate (Tobrex Ophthalmic Solution -) 1 drop OD TID [facility] Last Admin: 04/20/19 20:59 Dose: Not Given - Objective Vital Signs: Vital Signs Temperature 97.9 F 04/20/19 18:00 Pulse Rate 76 04/20/19 18:00 Respiratory Rate 18 04/20/19 20:50 Blood Pressure 126/65 04/20/19 18:00 O2 Sat by Pulse Oximetry (%) 99 04/20/19 20:50 Neck: Yes: WNL, Supple Cardiovascular: Yes: WNL, Regular Rate and Rhythm Respiratory: Yes: WNL, Regular, CTA Bilaterally Gastrointestinal: Yes: WNL, Normal Bowel Sounds, Soft Edema: No Labs: CBC, BMP 04/20/19 05:40 04/18/19 05:40 INR, PTT INR 1.11 (0.83-1.09) H 04/15/19 15:15 Problem List - Problems (1) Otitis externa Assessment/Plan: Cont IV vanco Pt is allergic to PCN and therefore cannot be given cefepime ENT/ID consults noted Cont corticosporin otic suspension Code(s): H60.90 - UNSPECIFIED OTITIS EXTERNA, UNSPECIFIED EAR Qualifiers: Otitis externa type: unspecified type Chronicity: acute Laterality: right Qualified Code(s): H60.501 - Unspecified acute noninfective otitis externa, right ear (2) Multiple myeloma Assessment/Plan: As per onco Code(s): C90.00 - MULTIPLE MYELOMA NOT HAVING ACHIEVED REMISSION Qualifiers: Multiple myeloma remission status: not in remission Qualified Code(s): C90.00 - Multiple myeloma not having achieved remission (3) HTN (hypertension) Assessment/Plan: BP meds on hold due to orthostatic hypotension Code(s): I10 - ESSENTIAL (PRIMARY) HYPERTENSION Qualifiers: Hypertension type: unspecified Qualified Code(s): I10 - Essential (primary ) hypertension (4) Conjunctivitis Assessment/Plan: Start tobraycin ophthalmologic drops Code(s): H10.9 - UNSPECIFIED CONJUNCTIVITIS (5) Syncope Assessment/Plan: Pt w/ orthostatic hypotension Echo showed normal EF DC tele As per cardio Code(s): R55 - SYNCOPE AND COLLAPSE (6) Depression Assessment/Plan: Cont lexapro Psych consult pending Code(s): F32.9 - MAJOR DEPRESSIVE DISORDER, SINGLE EPISODE, UNSPECIFIED (7) Anemia Code(s): D64.9 - ANEMIA, UNSPECIFIED Qualifiers: Chronic kidney disease stage: unspecified stage (8) CAD (coronary artery disease) Code(s): I25.10 - ATHSCL HEART DISEASE OF [place] CORONARY ARTERY W/O ANG PCTRS Qualifiers: (9) CHF (congestive heart failure) Code(s): I50.9 - HEART FAILURE, UNSPECIFIED Qualifiers: Heart failure type: systolic Heart failure chronicity: unspecified Qualified Code(s): I50.20 - Unspecified systolic (congestive) heart failure (10) CKD (chronic kidney disease) Code(s): N18.9 - CHRONIC KIDNEY DISEASE, UNSPECIFIED (11) HLD (hyperlipidemia) Code(s): E78.5 - HYPERLIPIDEMIA, UNSPECIFIED Qualifiers: Hyperlipidemia type: unspecified Qualified Code(s): E78.5 - Hyperlipidemia , unspecified (12) Hypothyroidism Code(s): E03.9 - HYPOTHYROIDISM, UNSPECIFIED Qualifiers: Hypothyroidism type: acquired Qualified Code(s): E03.9 - Hypothyroidism, unspecified (13) PAF (paroxysmal atrial fibrillation) Code(s): I48.0 - PAROXYSMAL ATRIAL FIBRILLATION
[2019-04-20] MEDS ORDERED: TOBRAMYCIN 0.3% OPHTH SOLN 5 ML BOTTLE OU SCH (21:59)
[2019-04-20] MEDS ORDERED: CEFEPIME HCL/D5W 1 GM/50 ML BAG IVPB SCH (22:00)
[2019-04-20] MEDS: TOBRAMYCIN 0.3% OPHTH SOLN 5 ML BOTTLE OU SCH (22:16)
[2019-04-20] MEDS: guaiFENesin 200 MG/10 ML 10 ML UNIT-DOSE CUPS PO PRN (22:51)
[2019-04-20] MEDS: NEOMYCIN/POLYMYXN/HC OTIC SUSPENSION 10 ML BOTTLE AU SCH (23:01)
[2019-04-21] MEDS ORDERED: PT OWN MED DRAWER 7, Y5N ONE ×2 (03:13→17:59)
[2019-04-21] MEDS: ACYCLOVIR INJECTION 600 MG in DEXTROSE 5%-WATER - 100 ML IVPB SCH ×3 (03:19→18:00)
[2019-04-21] MEDS: NEOMYCIN/POLYMYXN/HC OTIC SUSPENSION 10 ML BOTTLE AU SCH ×3 (05:13→18:05)
[2019-04-21] MEDS: VANCOMYCIN 1 GRAM (PRE-DOCKED) 1,000 MG/250 ML BAG IVPB SCH ×2 (05:13→16:14)
[2019-04-21] MEDS: TOBRAMYCIN 0.3% OPHTH SOLN 5 ML BOTTLE OU SCH ×3 (05:13→21:20)
[2019-04-21] MEDS: LEVOTHYROXINE NA 75 MCG TABLET (FP) PO SCH (06:16)
[2019-04-21] MEDS: guaiFENesin 200 MG/10 ML 10 ML UNIT-DOSE CUPS PO PRN (06:16)
[2019-04-21] MEDS: CLOPIDOGREL BISULFATE 75 MG TABLET (FP) PO SCH (09:00)
[2019-04-21] MEDS: ESCITALOPRAM OXALATE 10 MG TABLET (FP) PO SCH (09:00)
[2019-04-21] MEDS: PANTOPRAZOLE 40 MG TABLET (FP) PO SCH (09:00)
[2019-04-21] MEDS: POTASSIUM CHLORIDE TABS 10 MEQ TABLET.ER (FP) PO SCH (09:00)
[2019-04-21] MEDS: ALLOPURINOL 300 MG TABLET (FP) PO SCH (09:00)
[2019-04-21] MEDS: HEPARIN NA (PORCINE) 5,000 UNITS/ML 1ML VIAL SQ SCH ×2 (09:00→21:21)
[2019-04-21] MEDS: FLUCONAZOLE 100 MG TABLET (UD) PO SCH (09:00)
[2019-04-21] MEDS: ASPIRIN 81 MG CHEWABLE TABLETS PO SCH (09:00)
[2019-04-21] MEDS: NYSTATIN POWDER 100,000 UNITS/GM - 15 GM TOPICAL POWDER TP SCH ×2 (09:44→21:20)
--- NOTE | 2019-04-21 16:22 | PN ---
Progress Note, Physician History of Present Illness: Pt seen and examined at bedside. She is awake and alert. She denies shortness of breath. - Current Medication List Current Medications: Active Medications Acetaminophen (Tylenol -) 650 mg PO Q6H PRN PRN Reason: PAIN LEVEL 6-10 Last Admin: 04/20/19 21:00 Dose: 650 mg Allopurinol (Zyloprim -) 300 mg PO DAILY [facility] Last Admin: 04/21/19 09:00 Dose: 300 mg Aspirin (Asa -) 81 mg PO DAILY [facility] Last Admin: 04/21/19 09:00 Dose: 81 mg Atorvastatin Calcium (Lipitor -) 40 mg PO HS [facility] Last Admin: 04/20/19 20:59 Dose: 40 mg Clopidogrel Bisulfate (Plavix -) 75 mg PO DAILY [facility] Last Admin: 04/21/19 09:00 Dose: 75 mg Escitalopram Oxalate (Lexapro -) 10 mg PO DAILY [facility] Last Admin: 04/21/19 09:00 Dose: 10 mg Fluconazole (Diflucan -) 100 mg PO DAILY [facility] Last Admin: 04/21/19 09:00 Dose: 100 mg Guaifenesin (Robitussin -) 10 ml PO Q6H PRN PRN Reason: COUGH Last Admin: 04/21/19 06:16 Dose: 10 ml Heparin Sodium (Porcine) (Heparin -) 5,000 unit SQ BID [facility] Last Admin: 04/21/19 09:00 Dose: 5,000 unit Vancomycin HCl (Vancomycin (Pre-Docked)) 1,000 mg in 250 mls @ 166.667 mls/hr IVPB Q12H [facility]; Protocol Last Admin: 04/21/19 16:14 Dose: 166.667 mls/hr Acyclovir 600 mg/ Dextrose 112 mls @ 100 mls/hr IVPB Q8H-IV [facility] Last Admin: 04/21/19 09:40 Dose: 100 mls/hr Levothyroxine Sodium (Synthroid -) 75 mcg PO DAILY@0700 [facility] Last Admin: 04/21/19 06:16 Dose: 75 mcg Neomycin/Polymyxin/Hydrocortisone (Cortisporin Otic Suspenstion -) 4 drop AU Q6HPO [facility] Last Admin: 04/21/19 11:26 Dose: 4 drop Nystatin (Nystop Powder -) 1 applic TP BID [facility] Last Admin: 04/21/19 09:44 Dose: 1 applic Pantoprazole Sodium (Protonix -) 40 mg PO DAILY [facility] Last Admin: 04/21/19 09:00 Dose: 40 mg Potassium Chloride (K-Dur -) 10 meq PO DAILY [facility] Last Admin: 04/21/19 09:00 Dose: 10 meq Tobramycin Sulfate (Tobrex Ophthalmic Solution -) 1 drop OU TID [facility] Last Admin: 04/21/19 13:20 Dose: 1 drop - Objective Vital Signs: Vital Signs Temperature 99.3 F 04/21/19 14:32 Pulse Rate 84 04/21/19 14:32 Respiratory Rate 04/21/19 14:32 Blood Pressure 121/65 04/21/19 14:32 O2 Sat by Pulse Oximetry (%) 100 04/21/19 09:00 Constitutional: Yes: Calm Eyes: Yes: Conjunctiva Clear HENT: Yes: Atraumatic Cardiovascular: Yes: S1, S2 Respiratory: Yes: CTA Bilaterally Gastrointestinal: Yes: Soft Genitourinary: Yes: WNL Musculoskeletal: Yes: WNL Edema: No Neurological: Yes: Oriented Psychiatric: Yes: Oriented Labs: CBC, BMP 04/20/19 05:40 04/18/19 05:40 INR, PTT INR 1.11 (0.83-1.09) H 04/15/19 15:15 Problem List - Problems (1) Hypokalemia Code(s): E87.6 - HYPOKALEMIA Assessment/Plan Current Medications Generic Name Dose Route Start Last Admin Trade Name [place] PRN Reason Stop Dose Admin Acetaminophen 650 mg 04/14/19 22:01 04/20/19 21:00 Tylenol - PO 650 mg Q6H PRN Administration PAIN LEVEL 6-10 Allopurinol 300 mg 04/14/19 10:00 04/21/19 09:00 Zyloprim - PO 300 mg DAILY [facility] Administration Aspirin 81 mg 04/14/19 10:00 04/21/19 09:00 Asa - PO 81 mg DAILY [facility] Administration Atorvastatin Calcium 40 mg 04/13/19 22:00 04/20/19 20:59 Lipitor - PO 40 mg HS [facility] Administration Clopidogrel Bisulfate 75 mg 04/14/19 10:00 04/21/19 09:00 Plavix - PO 75 mg DAILY [facility] Administration Escitalopram Oxalate 10 mg 04/16/19 10:00 04/21/19 09:00 Lexapro - PO 10 mg DAILY [facility] Administration Fluconazole 100 mg 04/14/19 22:00 04/21/19 09:00 Diflucan - PO 100 mg DAILY [facility] Administration Guaifenesin 10 ml 04/20/19 20:33 04/21/19 06:16 Robitussin - PO 10 ml Q6H PRN Administration COUGH Heparin Sodium (Porcine) 5,000 unit 04/13/19 22:00 04/21/19 09:00 Heparin - SQ 5,000 unit BID [facility] Administration Vancomycin HCl 1,000 mg in 250 mls @ 166.667 mls/hr 04/18/19 16:45 04/21/19 16:14 Vancomycin (Pre-Docked) IVPB 166.667 mls/hr Q12H [facility] Administration Protocol Acyclovir 600 mg/ Dextrose 112 mls @ 100 mls/hr 04/18/19 18:00 04/21/19 09:40 IVPB 100 mls/hr Q8H-IV [facility] Administration Levothyroxine Sodium 75 mcg 04/14/19 07:00 04/21/19 06:16 Synthroid - PO 75 mcg DAILY@0700 [facility] Administration Neomycin/Polymyxin/Hydrocortisone 4 drop 04/21/19 00:00 04/21/19 11:26 Cortisporin Otic Suspenstion - AU 4 drop Q6HPO [facility] Administration Nystatin 1 applic 04/14/19 22:00 04/21/19 09:44 Nystop Powder - TP 1 applic BID [facility] Administration Pantoprazole Sodium 40 mg 04/14/19 10:00 04/21/19 09:00 Protonix - PO 40 mg DAILY [facility] Administration Potassium Chloride 10 meq 04/14/19 10:00 04/21/19 09:00 K-Dur - PO 10 meq DAILY [facility] Administration Tobramycin Sulfate 1 drop 04/20/19 22:00 04/21/19 13:20 Tobrex Ophthalmic Solution - OU 1 drop TID [facility] Administration Impression 1. proteinuria 2. multiple myeloma 3. amyloid 4. syncope 5. hypotension 6. HLD 7. hypothyroidism 8. anemia 9. CKD 10. hypokalemia Plan - check bmp in am - pt tolerated 20 mg of lasix yesterday - monitor volumes status - monitor bp
--- NOTE | 2019-04-21 18:48 | CON.PSL ---
Psychology Consult Consult Specialty:: Clinical Psychology History Provided By: Patient Limitations to Obtaining History: No Limitations Current Medications: Active Medications Acetaminophen (Tylenol -) 650 mg PO Q6H PRN PRN Reason: PAIN LEVEL 6-10 Last Admin: 04/20/19 21:00 Dose: 650 mg Allopurinol (Zyloprim -) 300 mg PO DAILY [facility] Last Admin: 04/21/19 09:00 Dose: 300 mg Aspirin (Asa -) 81 mg PO DAILY [facility] Last Admin: 04/21/19 09:00 Dose: 81 mg Atorvastatin Calcium (Lipitor -) 40 mg PO HS [facility] Last Admin: 04/20/19 20:59 Dose: 40 mg Clopidogrel Bisulfate (Plavix -) 75 mg PO DAILY [facility] Last Admin: 04/21/19 09:00 Dose: 75 mg Escitalopram Oxalate (Lexapro -) 10 mg PO DAILY [facility] Last Admin: 04/21/19 09:00 Dose: 10 mg Fluconazole (Diflucan -) 100 mg PO DAILY [facility] Last Admin: 04/21/19 09:00 Dose: 100 mg Guaifenesin (Robitussin -) 10 ml PO Q6H PRN PRN Reason: COUGH Last Admin: 04/21/19 06:16 Dose: 10 ml Heparin Sodium (Porcine) (Heparin -) 5,000 unit SQ BID [facility] Last Admin: 04/21/19 09:00 Dose: 5,000 unit Vancomycin HCl (Vancomycin (Pre-Docked)) 1,000 mg in 250 mls @ 166.667 mls/hr IVPB Q12H [facility]; Protocol Last Admin: 04/21/19 16:14 Dose: 166.667 mls/hr Acyclovir 600 mg/ Dextrose 112 mls @ 100 mls/hr IVPB Q8H-IV [facility] Last Admin: 04/21/19 18:00 Dose: 100 mls/hr Levothyroxine Sodium (Synthroid -) 75 mcg PO DAILY@0700 [facility] Last Admin: 04/21/19 06:16 Dose: 75 mcg Neomycin/Polymyxin/Hydrocortisone (Cortisporin Otic Suspenstion -) 4 drop AU Q6HPO [facility] Last Admin: 04/21/19 18:05 Dose: 4 drop Nystatin (Nystop Powder -) 1 applic TP BID [facility] Last Admin: 04/21/19 09:44 Dose: 1 applic Pantoprazole Sodium (Protonix -) 40 mg PO DAILY [facility] Last Admin: 04/21/19 09:00 Dose: 40 mg Potassium Chloride (K-Dur -) 10 meq PO DAILY [facility] Last Admin: 04/21/19 09:00 Dose: 10 meq Tobramycin Sulfate (Tobrex Ophthalmic Solution -) 1 drop OU TID [facility] Last Admin: 04/21/19 13:20 Dose: 1 drop Allergies: Allergies Allergy/AdvReac Type Severity Reaction Status Date / Time Penicillins Allergy Severe Rash Verified 04/13/19 09:58 Does patient have pain?: No Hx Alcohol Use: No Hx Substance Use: No Hx Substance Use Treatment: No Current Medical Exam-Psy Orientation: Time, Person, Place Immediate Term Memory: 01/02 Expressive: Coherent Receptive: Age Appropriate Comprehension of Spoken Words Hallucinations: Absent Thought Process: Intact Depression: Moderate Hopelessness: No Loss of Interest: No Anxiety Level: Moderate Danger to Self and Others: No Sleep: Poorly Appetite: Fair Serial Sevens Intact: No Repeats 3 words told earlier: 2/3 Leisure activities: Watch movies/TV Assessment/Plan The patient was cooperative and responsive to the evaluation. She tried her best at performing serial 7's but kept becoming confused during the process. She has a history of the loss of two daughters to medical conditions and also is trying to cope with her own cancer. We had a noel conversation and she looks forward to seeing me next week if she is not discharged in the interim. We used some guided imagery which was of value to her. The patient will be followed until her discharge. Thank you for your kind referral.
--- NOTE | 2019-04-21 20:07 | PN ---
Progress Note, Physician - Current Medication List Current Medications: Active Medications Acetaminophen (Tylenol -) 650 mg PO Q6H PRN PRN Reason: PAIN LEVEL 6-10 Last Admin: 04/20/19 21:00 Dose: 650 mg Allopurinol (Zyloprim -) 300 mg PO DAILY [facility] Last Admin: 04/21/19 09:00 Dose: 300 mg Aspirin (Asa -) 81 mg PO DAILY [facility] Last Admin: 04/21/19 09:00 Dose: 81 mg Atorvastatin Calcium (Lipitor -) 40 mg PO HS [facility] Last Admin: 04/20/19 20:59 Dose: 40 mg Clopidogrel Bisulfate (Plavix -) 75 mg PO DAILY [facility] Last Admin: 04/21/19 09:00 Dose: 75 mg Escitalopram Oxalate (Lexapro -) 10 mg PO DAILY [facility] Last Admin: 04/21/19 09:00 Dose: 10 mg Fluconazole (Diflucan -) 100 mg PO DAILY [facility] Last Admin: 04/21/19 09:00 Dose: 100 mg Guaifenesin (Robitussin -) 10 ml PO Q6H PRN PRN Reason: COUGH Last Admin: 04/21/19 06:16 Dose: 10 ml Heparin Sodium (Porcine) (Heparin -) 5,000 unit SQ BID [facility] Last Admin: 04/21/19 09:00 Dose: 5,000 unit Vancomycin HCl (Vancomycin (Pre-Docked)) 1,000 mg in 250 mls @ 166.667 mls/hr IVPB Q12H [facility]; Protocol Last Admin: 04/21/19 16:14 Dose: 166.667 mls/hr Acyclovir 600 mg/ Dextrose 112 mls @ 100 mls/hr IVPB Q8H-IV [facility] Last Admin: 04/21/19 18:00 Dose: 100 mls/hr Levothyroxine Sodium (Synthroid -) 75 mcg PO DAILY@0700 [facility] Last Admin: 04/21/19 06:16 Dose: 75 mcg Neomycin/Polymyxin/Hydrocortisone (Cortisporin Otic Suspenstion -) 4 drop AU Q6HPO [facility] Last Admin: 04/21/19 18:05 Dose: 4 drop Nystatin (Nystop Powder -) 1 applic TP BID [facility] Last Admin: 04/21/19 09:44 Dose: 1 applic Pantoprazole Sodium (Protonix -) 40 mg PO DAILY [facility] Last Admin: 04/21/19 09:00 Dose: 40 mg Potassium Chloride (K-Dur -) 10 meq PO DAILY [facility] Last Admin: 04/21/19 09:00 Dose: 10 meq Tobramycin Sulfate (Tobrex Ophthalmic Solution -) 1 drop OU TID [facility] Last Admin: 04/21/19 13:20 Dose: 1 drop - Objective Vital Signs: Vital Signs Temperature 98.8 F 04/21/19 17:52 Pulse Rate 81 04/21/19 17:52 Respiratory Rate 18 04/21/19 17:52 Blood Pressure 137/55 L 04/21/19 17:52 O2 Sat by Pulse Oximetry (%) 100 04/21/19 09:00 Labs: CBC, BMP 04/20/19 05:40 04/18/19 05:40 INR, PTT INR 1.11 (0.83-1.09) H 04/15/19 15:15 Problem List - Problems (1) Otitis externa Code(s): H60.90 - UNSPECIFIED OTITIS EXTERNA, UNSPECIFIED EAR Qualifiers: Otitis externa type: unspecified type Chronicity: acute Laterality: right Qualified Code(s): H60.501 - Unspecified acute noninfective otitis externa, right ear (2) Multiple myeloma Code(s): C90.00 - MULTIPLE MYELOMA NOT HAVING ACHIEVED REMISSION Qualifiers: Multiple myeloma remission status: not in remission Qualified Code(s): C90.00 - Multiple myeloma not having achieved remission (3) HTN (hypertension) Code(s): I10 - ESSENTIAL (PRIMARY) HYPERTENSION Qualifiers: Hypertension type: unspecified Qualified Code(s): I10 - Essential (primary ) hypertension (4) Conjunctivitis Code(s): H10.9 - UNSPECIFIED CONJUNCTIVITIS (5) Syncope Code(s): R55 - SYNCOPE AND COLLAPSE (6) Depression Code(s): F32.9 - MAJOR DEPRESSIVE DISORDER, SINGLE EPISODE, UNSPECIFIED (7) Anemia Code(s): D64.9 - ANEMIA, UNSPECIFIED Qualifiers: Chronic kidney disease stage: unspecified stage (8) CAD (coronary artery disease) Code(s): I25.10 - ATHSCL HEART DISEASE OF [place] CORONARY ARTERY W/O ANG PCTRS Qualifiers: (9) CHF (congestive heart failure) Code(s): I50.9 - HEART FAILURE, UNSPECIFIED Qualifiers: Heart failure type: systolic Heart failure chronicity: unspecified Qualified Code(s): I50.20 - Unspecified systolic (congestive) heart failure (10) CKD (chronic kidney disease) Code(s): N18.9 - CHRONIC KIDNEY DISEASE, UNSPECIFIED (11) HLD (hyperlipidemia) Code(s): E78.5 - HYPERLIPIDEMIA, UNSPECIFIED Qualifiers: Hyperlipidemia type: unspecified Qualified Code(s): E78.5 - Hyperlipidemia , unspecified (12) Hypothyroidism Code(s): E03.9 - HYPOTHYROIDISM, UNSPECIFIED Qualifiers: Hypothyroidism type: acquired Qualified Code(s): E03.9 - Hypothyroidism, unspecified (13) PAF (paroxysmal atrial fibrillation) Code(s): I48.0 - PAROXYSMAL ATRIAL FIBRILLATION
[2019-04-21] MEDS: ATORVASTATIN CA 20 MG TABLET (FP) PO SCH (21:19)
--- NOTE | 2019-04-21 23:30 | PN ---
Progress Note (short form) - Note Progress Note: Patient seen and examined Developed blepharitis/conjunctivitis for 1 day Also with rt. ear iching Last Vital Signs Temp Pulse Resp BP Pulse Ox 98.5 F 83 18 134/69 100 04/22/19 13:30 04/22/19 13:30 04/22/19 13:30 04/22/19 13:30 04/22/19 09:00 Cor: RSR, No murmurs, No gallops Lungs: Clear to P&A Abd: Soft, Normal bowel sounds, No organomegaly Ext:No significant edema Abnormal Lab Results 04/22/19 15:00 Chloride 109 H Anion Gap 4 L Calcium 8.3 L Active Medications Generic Name Dose Route Start Last Admin Trade Name Freq PRN Reason Stop Dose Admin Acetaminophen 650 mg 04/14/19 22:01 04/22/19 14:22 Tylenol - PO 650 mg Q6H PRN Administration PAIN LEVEL 6-10 Allopurinol 300 mg 04/14/19 10:00 04/22/19 09:09 Zyloprim - PO 300 mg DAILY [facility] Administration Aspirin 81 mg 04/14/19 10:00 04/22/19 09:09 Asa - PO 81 mg DAILY [facility] Administration Atorvastatin Calcium 40 mg 04/13/19 22:00 04/21/19 21:19 Lipitor - PO 40 mg HS [facility] Administration Clopidogrel Bisulfate 75 mg 04/14/19 10:00 04/22/19 09:09 Plavix - PO 75 mg DAILY [facility] Administration Escitalopram Oxalate 10 mg 04/16/19 10:00 04/22/19 09:09 Lexapro - PO 10 mg DAILY [facility] Administration Fluconazole 100 mg 04/14/19 22:00 04/22/19 09:09 Diflucan - PO 100 mg DAILY [facility] Administration Furosemide 20 mg 04/22/19 13:30 04/22/19 13:32 Lasix - PO 20 mg Q2D [facility] Administration Guaifenesin 10 ml 04/20/19 20:33 04/22/19 13:32 Robitussin - PO 10 ml Q6H PRN Administration COUGH Heparin Sodium (Porcine) 5,000 unit 04/13/19 22:00 04/22/19 09:09 Heparin - SQ 5,000 unit BID [facility] Administration Vancomycin HCl 1,000 mg in 250 mls @ 166.667 mls/hr 04/18/19 16:45 04/22/19 15:53 Vancomycin (Pre-Docked) IVPB 166.667 mls/hr Q12H [facility] Administration Protocol Acyclovir 600 mg/ Dextrose 112 mls @ 100 mls/hr 04/18/19 18:00 04/22/19 17:11 IVPB 100 mls/hr Q8H-IV [facility] Administration Levothyroxine Sodium 75 mcg 04/14/19 07:00 04/22/19 06:17 Synthroid - PO 75 mcg DAILY@0700 [facility] Administration Neomycin/Polymyxin/Hydrocortisone 4 drop 04/21/19 00:00 04/22/19 17:12 Cortisporin Otic Suspenstion - AU 4 drop Q6HPO [facility] Administration Nystatin 1 applic 04/14/19 22:00 04/22/19 09:16 Nystop Powder - TP 1 applic BID [facility] Administration Pantoprazole Sodium 40 mg 04/14/19 10:00 04/22/19 09:16 Protonix - PO 40 mg DAILY [facility] Administration Potassium Chloride 10 meq 04/14/19 10:00 04/22/19 09:16 K-Dur - PO 10 meq DAILY [facility] Administration Tobramycin Sulfate 1 drop 04/20/19 22:00 04/22/19 13:28 Tobrex Ophthalmic Solution - OU 1 drop TID [facility] Administration A/P 74 y/o patient with myeloma/amyloid/ nephrotic syndrome/ CHF rt. ear otitis externa and b/l blepharitis Being covered empirically with antimicrobials check CBC/CMP
[2019-04-22] MEDS ORDERED: PT OWN MED DRAWER 7, Y5N ONE ×2 (01:04→08:57)
[2019-04-22] MEDS: NEOMYCIN/POLYMYXN/HC OTIC SUSPENSION 10 ML BOTTLE AU SCH ×4 (01:12→17:12)
[2019-04-22] MEDS: ACYCLOVIR INJECTION 600 MG in DEXTROSE 5%-WATER - 100 ML IVPB SCH ×3 (01:12→17:11)
[2019-04-22] MEDS: VANCOMYCIN 1 GRAM (PRE-DOCKED) 1,000 MG/250 ML BAG IVPB SCH ×2 (03:53→15:53)
[2019-04-22] MEDS: TOBRAMYCIN 0.3% OPHTH SOLN 5 ML BOTTLE OU SCH ×3 (06:17→21:15)
[2019-04-22] MEDS: LEVOTHYROXINE NA 75 MCG TABLET (FP) PO SCH (06:17)
[2019-04-22] MEDS: CLOPIDOGREL BISULFATE 75 MG TABLET (FP) PO SCH (09:09)
[2019-04-22] MEDS: ALLOPURINOL 300 MG TABLET (FP) PO SCH (09:09)
[2019-04-22] MEDS: HEPARIN NA (PORCINE) 5,000 UNITS/ML 1ML VIAL SQ SCH ×2 (09:09→21:15)
[2019-04-22] MEDS: ESCITALOPRAM OXALATE 10 MG TABLET (FP) PO SCH (09:09)
[2019-04-22] MEDS: ASPIRIN 81 MG CHEWABLE TABLETS PO SCH (09:09)
[2019-04-22] MEDS: FLUCONAZOLE 100 MG TABLET (UD) PO SCH (09:09)
[2019-04-22] MEDS: POTASSIUM CHLORIDE TABS 10 MEQ TABLET.ER (FP) PO SCH (09:16)
[2019-04-22] MEDS: PANTOPRAZOLE 40 MG TABLET (FP) PO SCH (09:16)
[2019-04-22] MEDS: NYSTATIN POWDER 100,000 UNITS/GM - 15 GM TOPICAL POWDER TP SCH ×2 (09:16→21:15)
--- NOTE | 2019-04-22 12:15 | PN ---
Progress Note, Physician History of Present Illness: The patient is a 74-year-old female, with a past medical history of HTN, HLD, IA , CHF, multiple myeloma (on Velcade and Revlamide), who presents to the ED s/p 2 syncopal episodes today. The patient was having blood drawn during a routine visit with her oncologist when she suddenly became dizzy and lightheaded and subsequently lost consciousness. Patient was seated when she lost consciousness. Denies any head trauma. Rapid response was called and upon arrival of the ED team, the patient was witnessed to have another syncopal episode. Patient does not recall the incident. She denies ever having CP/SOB/ palpitations. Denies F/C. Had one episode of diarrhea this morning, no vomiting. Denies abdominal pain. PMH h/o CAD (NSTEMI; s/p HOLLY D1), Chronic systolic CHF, mildly reduced LV function with EF 45%, HTN, Hyperlipidemia,depression, Asthma, hiatal hernia, rectal polyp , Renal Insufficiency, proteinuria, Multiple Myeloma on velcade/decadron, revlamide, anemia, ?gout, and Hypothyroidism, - Current Medication List Current Medications: Active Medications Acetaminophen (Tylenol -) 650 mg PO Q6H PRN PRN Reason: PAIN LEVEL 6-10 Last Admin: 04/20/19 21:00 Dose: 650 mg Allopurinol (Zyloprim -) 300 mg PO DAILY [facility] Last Admin: 04/22/19 09:09 Dose: 300 mg Aspirin (Asa -) 81 mg PO DAILY [facility] Last Admin: 04/22/19 09:09 Dose: 81 mg Atorvastatin Calcium (Lipitor -) 40 mg PO HS [facility] Last Admin: 04/21/19 21:19 Dose: 40 mg Clopidogrel Bisulfate (Plavix -) 75 mg PO DAILY [facility] Last Admin: 04/22/19 09:09 Dose: 75 mg Escitalopram Oxalate (Lexapro -) 10 mg PO DAILY [facility] Last Admin: 04/22/19 09:09 Dose: 10 mg Fluconazole (Diflucan -) 100 mg PO DAILY [facility] Last Admin: 04/22/19 09:09 Dose: 100 mg Guaifenesin (Robitussin -) 10 ml PO Q6H PRN PRN Reason: COUGH Last Admin: 04/21/19 06:16 Dose: 10 ml Heparin Sodium (Porcine) (Heparin -) 5,000 unit SQ BID [facility] Last Admin: 04/22/19 09:09 Dose: 5,000 unit Vancomycin HCl (Vancomycin (Pre-Docked)) 1,000 mg in 250 mls @ 166.667 mls/hr IVPB Q12H [facility]; Protocol Last Admin: 04/22/19 03:53 Dose: 166.667 mls/hr Acyclovir 600 mg/ Dextrose 112 mls @ 100 mls/hr IVPB Q8H-IV [facility] Last Admin: 04/22/19 10:08 Dose: 100 mls/hr Levothyroxine Sodium (Synthroid -) 75 mcg PO DAILY@0700 [facility] Last Admin: 04/22/19 06:17 Dose: 75 mcg Neomycin/Polymyxin/Hydrocortisone (Cortisporin Otic Suspenstion -) 4 drop AU Q6HPO [facility] Last Admin: 04/22/19 06:17 Dose: 4 drop Nystatin (Nystop Powder -) 1 applic TP BID [facility] Last Admin: 04/22/19 09:16 Dose: 1 applic Pantoprazole Sodium (Protonix -) 40 mg PO DAILY [facility] Last Admin: 04/22/19 09:16 Dose: 40 mg Potassium Chloride (K-Dur -) 10 meq PO DAILY [facility] Last Admin: 04/22/19 09:16 Dose: 10 meq Tobramycin Sulfate (Tobrex Ophthalmic Solution -) 1 drop OU TID [facility] Last Admin: 04/22/19 06:17 Dose: 1 drop - Objective Vital Signs: Vital Signs Temperature 98.5 F 04/22/19 06:00 Pulse Rate 81 04/22/19 06:00 Respiratory Rate 18 04/22/19 09:00 Blood Pressure 124/63 04/22/19 06:00 O2 Sat by Pulse Oximetry (%) 100 04/22/19 09:00 Eyes: Yes: WNL, Conjunctiva Clear, EOM Intact HENT: Yes: WNL, Atraumatic, Normocephalic Neck: Yes: WNL, Supple, Trachea Midline Cardiovascular: Yes: WNL, Regular Rate and Rhythm Respiratory: Yes: WNL, Regular, CTA Bilaterally Gastrointestinal: Yes: WNL, Normal Bowel Sounds Genitourinary: Yes: WNL Musculoskeletal: Yes: WNL Extremities: Yes: WNL Edema: No Integumentary: Yes: WNL Neurological: Yes: WNL, Alert, Oriented ...Motor Strength: WNL Psychiatric: Yes: WNL Labs: CBC, BMP 04/20/19 05:40 04/18/19 05:40 INR, PTT INR 1.11 (0.83-1.09) H 04/15/19 15:15 Problem List - Problems (1) Syncope Code(s): R55 - SYNCOPE AND COLLAPSE (2) CINTIA positive Code(s): R76.8 - OTHER SPECIFIED ABNORMAL IMMUNOLOGICAL FINDINGS IN SERUM (3) ASHD (arteriosclerotic heart disease) Code(s): I25.10 - ATHSCL HEART DISEASE OF [place] CORONARY ARTERY W/O ANG PCTRS (4) Abnormal ECG Code(s): R94.31 - ABNORMAL ELECTROCARDIOGRAM [ECG] [EKG] (5) Acute exacerbation of CHF (congestive heart failure) Code(s): I50.9 - HEART FAILURE, UNSPECIFIED (6) Acute on chronic renal failure Code(s): N17.9 - ACUTE KIDNEY FAILURE, UNSPECIFIED; N18.9 - CHRONIC KIDNEY DISEASE, UNSPECIFIED Qualifiers: Chronic kidney disease stage: stage 2 (mild) (7) Acute on chronic systolic CHF (congestive heart failure) Code(s): I50.23 - ACUTE ON CHRONIC SYSTOLIC (CONGESTIVE) HEART FAILURE (8) Acute respiratory failure Code(s): J96.00 - ACUTE RESPIRATORY FAILURE, UNSP W HYPOXIA OR HYPERCAPNIA (9) Adult onset hypothyroidism Code(s): E03.8 - OTHER SPECIFIED HYPOTHYROIDISM (10) Anemia Code(s): D64.9 - ANEMIA, UNSPECIFIED (11) Anemia Code(s): D64.9 - ANEMIA, UNSPECIFIED Qualifiers: Chronic kidney disease stage: unspecified stage (12) Anemia Code(s): D64.9 - ANEMIA, UNSPECIFIED Qualifiers: Anemia type: unspecified type Qualified Code(s): D64.9 - Anemia, unspecified (13) Anemia Code(s): D64.9 - ANEMIA, UNSPECIFIED Qualifiers: Chronic kidney disease stage: unspecified stage (14) Anxiety Code(s): F41.9 - ANXIETY DISORDER, UNSPECIFIED (15) Asymptomatic bacteriuria Code(s): R82.71 - BACTERIURIA (16) CAD (coronary artery disease) Code(s): I25.10 - ATHSCL HEART DISEASE OF [place] CORONARY ARTERY W/O ANG PCTRS Qualifiers: (17) CHF (congestive heart failure) Code(s): I50.9 - HEART FAILURE, UNSPECIFIED Qualifiers: Heart failure type: systolic Heart failure chronicity: unspecified Qualified Code(s): I50.20 - Unspecified systolic (congestive) heart failure (18) CKD (chronic kidney disease) Code(s): N18.9 - CHRONIC KIDNEY DISEASE, UNSPECIFIED (19) Chest pain Code(s): R07.9 - CHEST PAIN, UNSPECIFIED Qualifiers: Chest pain type: unspecified Qualified Code(s): R07.9 - Chest pain, unspecified (20) Cough Code(s): R05 - COUGH (21) Dehydration Code(s): E86.0 - DEHYDRATION (22) Diarrhea Code(s): R19.7 - DIARRHEA, UNSPECIFIED Qualifiers: Diarrhea type: unspecified type Qualified Code(s): R19.7 - Diarrhea, unspecified (23) Diarrhea Code(s): R19.7 - DIARRHEA, UNSPECIFIED Qualifiers: Diarrhea type: unspecified type Qualified Code(s): R19.7 - Diarrhea, unspecified (24) Dizziness Code(s): R42 - DIZZINESS AND GIDDINESS (25) Elevated troponin Code(s): R74.8 - ABNORMAL LEVELS OF OTHER SERUM ENZYMES (26) Elevated troponin Code(s): R74.8 - ABNORMAL LEVELS OF OTHER SERUM ENZYMES (27) Elevated troponin I level Code(s): R74.8 - ABNORMAL LEVELS OF OTHER SERUM ENZYMES (28) Facial swelling Code(s): R22.0 - LOCALIZED SWELLING, MASS AND LUMP, HEAD (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 - HEREDITARY DEFICIENCY OF OTHER CLOTTING FACTORS (30) Fever Code(s): R50.9 - FEVER, UNSPECIFIED (31) Gastric wall thickening Code(s): K31.89 - OTHER DISEASES OF STOMACH AND DUODENUM (32) HLD (hyperlipidemia) Code(s): E78.5 - HYPERLIPIDEMIA, UNSPECIFIED Qualifiers: Hyperlipidemia type: unspecified Qualified Code(s): E78.5 - Hyperlipidemia , unspecified (33) HTN (hypertension) Code(s): I10 - ESSENTIAL (PRIMARY) HYPERTENSION Qualifiers: Hypertension type: unspecified Qualified Code(s): I10 - Essential (primary ) hypertension (34) Headache Code(s): R51 - HEADACHE (35) History of heart artery stent Code(s): Z95.5 - PRESENCE OF CORONARY ANGIOPLASTY IMPLANT AND GRAFT (36) Hypoalbuminemia Code(s): E88.09 - OTH DISORDERS OF PLASMA-PROTEIN METABOLISM, NEC (37) Hypotension Code(s): I95.9 - HYPOTENSION, UNSPECIFIED Qualifiers: Hypotension type: other hypotension type Qualified Code(s): I95.89 - Other hypotension (38) Hypothyroidism Code(s): E03.9 - HYPOTHYROIDISM, UNSPECIFIED Qualifiers: Hypothyroidism type: acquired Qualified Code(s): E03.9 - Hypothyroidism, unspecified (39) Hypothyroidism Code(s): E03.9 - HYPOTHYROIDISM, UNSPECIFIED (40) Lichen amyloidosus Code(s): E85.4 - ORGAN-LIMITED AMYLOIDOSIS; L99 - OTH DISORDERS OF SKIN, SUBCU IN DISEASES CLASSD ELSWHR (41) Loss of appetite Code(s): R63.0 - ANOREXIA (42) Multiple myeloma Code(s): C90.00 - MULTIPLE MYELOMA NOT HAVING ACHIEVED REMISSION Qualifiers: Multiple myeloma remission status: not in remission Qualified Code(s): C90.00 - Multiple myeloma not having achieved remission (43) Multiple myeloma Code(s): C90.00 - MULTIPLE MYELOMA NOT HAVING ACHIEVED REMISSION Qualifiers: Multiple myeloma remission status: not in remission Qualified Code(s): C90.00 - Multiple myeloma not having achieved remission (44) Multiple myeloma Code(s): C90.00 - MULTIPLE MYELOMA NOT HAVING ACHIEVED REMISSION (45) Multiple myeloma Code(s): C90.00 - MULTIPLE MYELOMA NOT HAVING ACHIEVED REMISSION (46) Otitis Code(s): H66.90 - OTITIS MEDIA, UNSPECIFIED, UNSPECIFIED EAR (47) Otitis externa Code(s): H60.90 - UNSPECIFIED OTITIS EXTERNA, UNSPECIFIED EAR Qualifiers: Otitis externa type: unspecified type Chronicity: acute Laterality: right Qualified Code(s): H60.501 - Unspecified acute noninfective otitis externa, right ear (48) Otitis media with rupture of tympanic membrane Code(s): H66.90 - OTITIS MEDIA, UNSPECIFIED, UNSPECIFIED EAR; H72.90 - UNSP PERFORATION OF TYMPANIC MEMBRANE, UNSPECIFIED EAR Qualifiers: Laterality: right Qualified Code(s): H66.91 - Otitis media, unspecified, right ear; H72.91 - Unspecified perforation of tympanic membrane, right ear (49) PAF (paroxysmal atrial fibrillation) Code(s): I48.0 - PAROXYSMAL ATRIAL FIBRILLATION (50) PHT (pulmonary hypertension) Code(s): I27.20 - PULMONARY HYPERTENSION, UNSPECIFIED (51) Penicillin allergy Code(s): Z88.0 - ALLERGY STATUS TO PENICILLIN (52) Pressure ulcer of sacral region, stage 1 Code(s): L89.151 - PRESSURE ULCER OF SACRAL REGION, STAGE 1 (53) Proteinuria Code(s): R80.9 - PROTEINURIA, UNSPECIFIED Qualifiers: Proteinuria type: persistent Qualified Code(s): R80.1 - Persistent proteinuria, unspecified (54) Rectal bleed Code(s): K62.5 - HEMORRHAGE OF ANUS AND RECTUM (55) Rectal pain Code(s): K62.89 - OTHER SPECIFIED DISEASES OF ANUS AND RECTUM (56) Renal dysfunction Code(s): N28.9 - DISORDER OF KIDNEY AND URETER, UNSPECIFIED (57) Respiratory insufficiency Code(s): R06.89 - OTHER ABNORMALITIES OF BREATHING (58) Troponin I above reference range Code(s): R74.8 - ABNORMAL LEVELS OF OTHER SERUM ENZYMES (59) Vomiting Code(s): R11.10 - VOMITING, UNSPECIFIED Qualifiers: Vomiting type: unspecified Vomiting Intractability: unspecified Nausea presence: unspecified Qualified Code(s): R11.10 - Vomiting, unspecified (60) Weakness Code(s): R53.1 - WEAKNESS (61) Weight loss Code(s): R63.4 - ABNORMAL WEIGHT LOSS Assessment/Plan Problems (1) Syncope Assessment/Plan: No further episodes. Maintain hydration. ECHO: normal LVEF; abnormal diastolic compliance. Code(s): R55 - SYNCOPE AND COLLAPSE (2) HTN (hypertension) Code(s): I10 - ESSENTIAL (PRIMARY) HYPERTENSION Qualifiers: Hypertension type: unspecified Qualified Code(s): I10 - Essential (primary ) hypertension (3) Multiple myeloma Code(s): C90.00 - MULTIPLE MYELOMA NOT HAVING ACHIEVED REMISSION Qualifiers: Multiple myeloma remission status: not in remission Qualified Code(s): C90.00 - Multiple myeloma not having achieved remission (4) Weakness Code(s): R53.1 - WEAKNESS (5) Weight loss Code(s): R63.4 - ABNORMAL WEIGHT LOSS (6) Hypoalbuminemia Code(s): E88.09 - OTH DISORDERS OF PLASMA-PROTEIN METABOLISM, NEC (7) Gout Code(s): M10.9 - GOUT, UNSPECIFIED (8) Shingles Code(s): B02.9 - ZOSTER WITHOUT COMPLICATIONS (9) Hypothyroidism Code(s): E03.9 - HYPOTHYROIDISM, UNSPECIFIED Qualifiers: Hypothyroidism type: acquired Qualified Code(s): E03.9 - Hypothyroidism, unspecified (10) HLD (hyperlipidemia) Code(s): E78.5 - HYPERLIPIDEMIA, UNSPECIFIED Qualifiers: Hyperlipidemia type: unspecified Qualified Code(s): E78.5 - Hyperlipidemia , unspecified (11) ASHD (arteriosclerotic heart disease) Code(s): I25.10 - ATHSCL HEART DISEASE OF [place] CORONARY ARTERY W/O ANG PCTRS (12) Depression Code(s): F32.9 - MAJOR DEPRESSIVE DISORDER, SINGLE EPISODE, UNSPECIFIED
--- NOTE | 2019-04-22 13:20 | PN ---
Progress Note, Physician History of Present Illness: Pt seen and examined at bedside. She is awake and alert. She feels edema is improving. - Current Medication List Current Medications: Active Medications Acetaminophen (Tylenol -) 650 mg PO Q6H PRN PRN Reason: PAIN LEVEL 6-10 Last Admin: 04/20/19 21:00 Dose: 650 mg Allopurinol (Zyloprim -) 300 mg PO DAILY [facility] Last Admin: 04/22/19 09:09 Dose: 300 mg Aspirin (Asa -) 81 mg PO DAILY [facility] Last Admin: 04/22/19 09:09 Dose: 81 mg Atorvastatin Calcium (Lipitor -) 40 mg PO HS [facility] Last Admin: 04/21/19 21:19 Dose: 40 mg Clopidogrel Bisulfate (Plavix -) 75 mg PO DAILY [facility] Last Admin: 04/22/19 09:09 Dose: 75 mg Escitalopram Oxalate (Lexapro -) 10 mg PO DAILY [facility] Last Admin: 04/22/19 09:09 Dose: 10 mg Fluconazole (Diflucan -) 100 mg PO DAILY [facility] Last Admin: 04/22/19 09:09 Dose: 100 mg Guaifenesin (Robitussin -) 10 ml PO Q6H PRN PRN Reason: COUGH Last Admin: 04/21/19 06:16 Dose: 10 ml Heparin Sodium (Porcine) (Heparin -) 5,000 unit SQ BID [facility] Last Admin: 04/22/19 09:09 Dose: 5,000 unit Vancomycin HCl (Vancomycin (Pre-Docked)) 1,000 mg in 250 mls @ 166.667 mls/hr IVPB Q12H [facility]; Protocol Last Admin: 04/22/19 03:53 Dose: 166.667 mls/hr Acyclovir 600 mg/ Dextrose 112 mls @ 100 mls/hr IVPB Q8H-IV [facility] Last Admin: 04/22/19 10:08 Dose: 100 mls/hr Levothyroxine Sodium (Synthroid -) 75 mcg PO DAILY@0700 [facility] Last Admin: 04/22/19 06:17 Dose: 75 mcg Neomycin/Polymyxin/Hydrocortisone (Cortisporin Otic Suspenstion -) 4 drop AU Q6HPO [facility] Last Admin: 04/22/19 06:17 Dose: 4 drop Nystatin (Nystop Powder -) 1 applic TP BID [facility] Last Admin: 04/22/19 09:16 Dose: 1 applic Pantoprazole Sodium (Protonix -) 40 mg PO DAILY [facility] Last Admin: 04/22/19 09:16 Dose: 40 mg Potassium Chloride (K-Dur -) 10 meq PO DAILY [facility] Last Admin: 04/22/19 09:16 Dose: 10 meq Tobramycin Sulfate (Tobrex Ophthalmic Solution -) 1 drop OU TID [facility] Last Admin: 04/22/19 06:17 Dose: 1 drop - Objective Vital Signs: Vital Signs Temperature 98.5 F 04/22/19 06:00 Pulse Rate 81 04/22/19 06:00 Respiratory Rate 18 04/22/19 09:00 Blood Pressure 124/63 04/22/19 06:00 O2 Sat by Pulse Oximetry (%) 100 04/22/19 09:00 Constitutional: Yes: Calm Eyes: Yes: Conjunctiva Clear HENT: Yes: Atraumatic Neck: Yes: Supple Cardiovascular: Yes: S1, S2 Respiratory: Yes: CTA Bilaterally Gastrointestinal: Yes: WNL Genitourinary: Yes: WNL Musculoskeletal: Yes: WNL Edema: LLE: Trace, RLE: Trace Neurological: Yes: Oriented Psychiatric: Yes: Oriented Labs: CBC, BMP 04/20/19 05:40 04/18/19 05:40 INR, PTT INR 1.11 (0.83-1.09) H 04/15/19 15:15 Problem List - Problems (1) Hypokalemia Code(s): E87.6 - HYPOKALEMIA Assessment/Plan Current Medications Generic Name Dose Route Start Last Admin Trade Name Edgar PRN Reason Stop Dose Admin Acetaminophen 650 mg 04/14/19 22:01 04/20/19 21:00 Tylenol - PO 650 mg Q6H PRN Administration PAIN LEVEL 6-10 Allopurinol 300 mg 04/14/19 10:00 04/22/19 09:09 Zyloprim - PO 300 mg DAILY [facility] Administration Aspirin 81 mg 04/14/19 10:00 04/22/19 09:09 Asa - PO 81 mg DAILY [facility] Administration Atorvastatin Calcium 40 mg 04/13/19 22:00 04/21/19 21:19 Lipitor - PO 40 mg HS [facility] Administration Clopidogrel Bisulfate 75 mg 04/14/19 10:00 04/22/19 09:09 Plavix - PO 75 mg DAILY [facility] Administration Escitalopram Oxalate 10 mg 04/16/19 10:00 04/22/19 09:09 Lexapro - PO 10 mg DAILY [facility] Administration Fluconazole 100 mg 04/14/19 22:00 04/22/19 09:09 Diflucan - PO 100 mg DAILY [facility] Administration Guaifenesin 10 ml 04/20/19 20:33 04/21/19 06:16 Robitussin - PO 10 ml Q6H PRN Administration COUGH Heparin Sodium (Porcine) 5,000 unit 04/13/19 22:00 04/22/19 09:09 Heparin - SQ 5,000 unit BID [facility] Administration Vancomycin HCl 1,000 mg in 250 mls @ 166.667 mls/hr 04/18/19 16:45 04/22/19 03:53 Vancomycin (Pre-Docked) IVPB 166.667 mls/hr Q12H [facility] Administration Protocol Acyclovir 600 mg/ Dextrose 112 mls @ 100 mls/hr 04/18/19 18:00 04/22/19 10:08 IVPB 100 mls/hr Q8H-IV [facility] Administration Levothyroxine Sodium 75 mcg 04/14/19 07:00 04/22/19 06:17 Synthroid - PO 75 mcg DAILY@0700 [facility] Administration Neomycin/Polymyxin/Hydrocortisone 4 drop 04/21/19 00:00 04/22/19 06:17 Cortisporin Otic Suspenstion - AU 4 drop Q6HPO [facility] Administration Nystatin 1 applic 04/14/19 22:00 04/22/19 09:16 Nystop Powder - TP 1 applic BID [facility] Administration Pantoprazole Sodium 40 mg 04/14/19 10:00 04/22/19 09:16 Protonix - PO 40 mg DAILY [facility] Administration Potassium Chloride 10 meq 04/14/19 10:00 04/22/19 09:16 K-Dur - PO 10 meq DAILY [facility] Administration Tobramycin Sulfate 1 drop 04/20/19 22:00 04/22/19 06:17 Tobrex Ophthalmic Solution - OU 1 drop TID [facility] Administration Impression 1. proteinuria 2. multiple myeloma 3. amyloid 4. syncope 5. hypotension 6. HLD 7. hypothyroidism 8. anemia 9. CKD 10. hypokalemia Plan - check bmp, will orders - lasix 20 mg q 48 hrs - monitor volumes status - monitor bp - will follow PRN
[2019-04-22] MEDS: guaiFENesin 200 MG/10 ML 10 ML UNIT-DOSE CUPS PO PRN (13:32)
[2019-04-22] MEDS: FUROSEMIDE 20 MG TABLET (FP) PO SCH (13:32)
[2019-04-22] MEDS: ACETAMINOPHEN 325 MG TABLET (FP) PO PRN (14:22)
[2019-04-22 16:26] LABS: BLOOD UREA NITROGEN 16.4 mg/dL (7-18); CALCIUM 8.3 mg/dL (8.5-10.1); CREATININE 0.9 mg/dL (0.55-1.3); POTASSIUM 4.5 mmol/L (3.5-5.1)
[2019-04-22] MEDS: ATORVASTATIN CA 20 MG TABLET (FP) PO SCH (21:15)
--- NOTE | 2019-04-22 21:30 | PN ---
Progress Note, Physician - Current Medication List Current Medications: Active Medications Acetaminophen (Tylenol -) 650 mg PO Q6H PRN PRN Reason: PAIN LEVEL 6-10 Last Admin: 04/22/19 14:22 Dose: 650 mg Allopurinol (Zyloprim -) 300 mg PO DAILY [facility] Last Admin: 04/22/19 09:09 Dose: 300 mg Aspirin (Asa -) 81 mg PO DAILY [facility] Last Admin: 04/22/19 09:09 Dose: 81 mg Atorvastatin Calcium (Lipitor -) 40 mg PO HS [facility] Last Admin: 04/22/19 21:15 Dose: 40 mg Clopidogrel Bisulfate (Plavix -) 75 mg PO DAILY [facility] Last Admin: 04/22/19 09:09 Dose: 75 mg Escitalopram Oxalate (Lexapro -) 10 mg PO DAILY [facility] Last Admin: 04/22/19 09:09 Dose: 10 mg Fluconazole (Diflucan -) 100 mg PO DAILY [facility] Last Admin: 04/22/19 09:09 Dose: 100 mg Furosemide (Lasix -) 20 mg PO Q2D [facility] Last Admin: 04/22/19 13:32 Dose: 20 mg Guaifenesin (Robitussin -) 10 ml PO Q6H PRN PRN Reason: COUGH Last Admin: 04/22/19 13:32 Dose: 10 ml Heparin Sodium (Porcine) (Heparin -) 5,000 unit SQ BID [facility] Last Admin: 04/22/19 21:15 Dose: 5,000 unit Vancomycin HCl (Vancomycin (Pre-Docked)) 1,000 mg in 250 mls @ 166.667 mls/hr IVPB Q12H [facility]; Protocol Last Admin: 04/22/19 15:53 Dose: 166.667 mls/hr Acyclovir 600 mg/ Dextrose 112 mls @ 100 mls/hr IVPB Q8H-IV [facility] Last Admin: 04/22/19 17:11 Dose: 100 mls/hr Levothyroxine Sodium (Synthroid -) 75 mcg PO DAILY@0700 [facility] Last Admin: 04/22/19 06:17 Dose: 75 mcg Neomycin/Polymyxin/Hydrocortisone (Cortisporin Otic Suspenstion -) 4 drop AU Q6HPO [facility] Last Admin: 04/22/19 17:12 Dose: 4 drop Nystatin (Nystop Powder -) 1 applic TP BID [facility] Last Admin: 04/22/19 21:15 Dose: 1 applic Pantoprazole Sodium (Protonix -) 40 mg PO DAILY [facility] Last Admin: 04/22/19 09:16 Dose: 40 mg Potassium Chloride (K-Dur -) 10 meq PO DAILY [facility] Last Admin: 04/22/19 09:16 Dose: 10 meq Tobramycin Sulfate (Tobrex Ophthalmic Solution -) 1 drop OU TID [facility] Last Admin: 04/22/19 21:15 Dose: 1 drop - Objective Vital Signs: Vital Signs Temperature 98.5 F 04/22/19 13:30 Pulse Rate 83 04/22/19 13:30 Respiratory Rate 18 04/22/19 13:30 Blood Pressure 134/69 04/22/19 13:30 O2 Sat by Pulse Oximetry (%) 100 04/22/19 09:00 Labs: CBC, BMP 04/20/19 05:40 04/22/19 15:00 INR, PTT INR 1.11 (0.83-1.09) H 04/15/19 15:15 Problem List - Problems (1) Otitis externa Code(s): H60.90 - UNSPECIFIED OTITIS EXTERNA, UNSPECIFIED EAR Qualifiers: Otitis externa type: unspecified type Chronicity: acute Laterality: right Qualified Code(s): H60.501 - Unspecified acute noninfective otitis externa, right ear (2) Multiple myeloma Code(s): C90.00 - MULTIPLE MYELOMA NOT HAVING ACHIEVED REMISSION Qualifiers: Multiple myeloma remission status: not in remission Qualified Code(s): C90.00 - Multiple myeloma not having achieved remission (3) HTN (hypertension) Code(s): I10 - ESSENTIAL (PRIMARY) HYPERTENSION Qualifiers: Hypertension type: unspecified Qualified Code(s): I10 - Essential (primary ) hypertension (4) Conjunctivitis Code(s): H10.9 - UNSPECIFIED CONJUNCTIVITIS (5) Syncope Code(s): R55 - SYNCOPE AND COLLAPSE (6) Depression Code(s): F32.9 - MAJOR DEPRESSIVE DISORDER, SINGLE EPISODE, UNSPECIFIED (7) Anemia Code(s): D64.9 - ANEMIA, UNSPECIFIED Qualifiers: Chronic kidney disease stage: unspecified stage (8) CAD (coronary artery disease) Code(s): I25.10 - ATHSCL HEART DISEASE OF [place] CORONARY ARTERY W/O ANG PCTRS Qualifiers: (9) CHF (congestive heart failure) Code(s): I50.9 - HEART FAILURE, UNSPECIFIED Qualifiers: Heart failure type: systolic Heart failure chronicity: unspecified Qualified Code(s): I50.20 - Unspecified systolic (congestive) heart failure (10) CKD (chronic kidney disease) Code(s): N18.9 - CHRONIC KIDNEY DISEASE, UNSPECIFIED (11) HLD (hyperlipidemia) Code(s): E78.5 - HYPERLIPIDEMIA, UNSPECIFIED Qualifiers: Hyperlipidemia type: unspecified Qualified Code(s): E78.5 - Hyperlipidemia , unspecified (12) Hypothyroidism Code(s): E03.9 - HYPOTHYROIDISM, UNSPECIFIED Qualifiers: Hypothyroidism type: acquired Qualified Code(s): E03.9 - Hypothyroidism, unspecified (13) PAF (paroxysmal atrial fibrillation) Code(s): I48.0 - PAROXYSMAL ATRIAL FIBRILLATION
--- NOTE | 2019-04-22 23:33 | PN ---
Progress Note (short form) - Note Progress Note: Patient seen and examined Developed blepharitis/conjunctivitis for 1 day Also with rt. ear itching afvss Cor: RSR, No murmurs, No gallops Lungs: Clear to P&A Abd: Soft, Normal bowel sounds, No organomegaly Ext:No significant edema labs/meds reviewed A/P 74 y/o patient with myeloma/amyloid/ nephrotic syndrome/ CHF rt. ear otitis externa and b/l blepharitis Being covered empirically with antimicrobials check CBC/CMP
[2019-04-23] MEDS ORDERED: PT OWN MED DRAWER 7, Y5N ONE (01:03)
[2019-04-23] MEDS: NEOMYCIN/POLYMYXN/HC OTIC SUSPENSION 10 ML BOTTLE AU SCH ×4 (01:06→18:07)
[2019-04-23] MEDS: ACYCLOVIR INJECTION 600 MG in DEXTROSE 5%-WATER - 100 ML IVPB SCH ×3 (01:07→18:12)
[2019-04-23] MEDS: VANCOMYCIN 1 GRAM (PRE-DOCKED) 1,000 MG/250 ML BAG IVPB SCH ×2 (05:21→17:43)
[2019-04-23] MEDS: TOBRAMYCIN 0.3% OPHTH SOLN 5 ML BOTTLE OU SCH ×3 (05:22→22:27)
[2019-04-23] MEDS: LEVOTHYROXINE NA 75 MCG TABLET (FP) PO SCH (06:15)
[2019-04-23 07:51] LABS: BASO % 2.6 % (0-2.0); HEMATOCRIT 27.8 % (32.4-45.2); HEMOGLOBIN 9.5 GM/dL (10.7-15.3); LYMPH % 39.9 % (8-40); MCH 32.6 pg (25.7-33.7); MCHC 34.2 g/dl (32.0-36.0); MEAN CELL VOLUME 95.3 fl (80-96); MEAN PLT VOLUME 8.3 fl (7.5-11.1); MONO % 17.7 % (3.8-10.2); NEUT % 39.8 % (42.8-82.8); PLATELET COUNT 251 K/MM3 (134-434); RBC 2.91 M/mm3 (3.60-5.2); RDW 17.5 % (11.6-15.6); WHITE BLOOD COUNT 3.2 K/mm3 (4.0-10.0)
[2019-04-23 08:18] LABS: ALBUMIN 1.5 g/dl (3.4-5.0); BILIRUBIN,TOTAL 0.2 mg/dL (0.2-1); BLOOD UREA NITROGEN 14.4 mg/dL (7-18); CALCIUM 8.1 mg/dL (8.5-10.1); CREATININE 0.9 mg/dL (0.55-1.3); POTASSIUM 3.8 mmol/L (3.5-5.1); TOT PROT 5.7 g/dl (6.4-8.2)
[2019-04-23] MEDS: guaiFENesin 200 MG/10 ML 10 ML UNIT-DOSE CUPS PO PRN (12:56)
[2019-04-23] MEDS: HEPARIN NA (PORCINE) 5,000 UNITS/ML 1ML VIAL SQ SCH ×2 (12:56→22:26)
[2019-04-23] MEDS: ASPIRIN 81 MG CHEWABLE TABLETS PO SCH (12:57)
[2019-04-23] MEDS: PANTOPRAZOLE 40 MG TABLET (FP) PO SCH (12:57)
[2019-04-23] MEDS: CLOPIDOGREL BISULFATE 75 MG TABLET (FP) PO SCH (12:57)
[2019-04-23] MEDS: FLUCONAZOLE 100 MG TABLET (UD) PO SCH (12:57)
[2019-04-23] MEDS: ESCITALOPRAM OXALATE 10 MG TABLET (FP) PO SCH (12:57)
[2019-04-23] MEDS: ALLOPURINOL 300 MG TABLET (FP) PO SCH (12:57)
[2019-04-23] MEDS: NYSTATIN POWDER 100,000 UNITS/GM - 15 GM TOPICAL POWDER TP SCH ×2 (12:58→22:26)
[2019-04-23] MEDS: ATORVASTATIN CA 20 MG TABLET (FP) PO SCH (22:26)
--- NOTE | 2019-04-23 22:58 | PN ---
Progress Note, Physician History of Present Illness: Pt is feeling better - Current Medication List Current Medications: Active Medications Acetaminophen (Tylenol -) 650 mg PO Q6H PRN PRN Reason: PAIN LEVEL 6-10 Last Admin: 04/22/19 14:22 Dose: 650 mg Allopurinol (Zyloprim -) 300 mg PO DAILY [facility] Last Admin: 04/23/19 12:57 Dose: 300 mg Aspirin (Asa -) 81 mg PO DAILY [facility] Last Admin: 04/23/19 12:57 Dose: 81 mg Atorvastatin Calcium (Lipitor -) 40 mg PO HS [facility] Last Admin: 04/23/19 22:26 Dose: 40 mg Clopidogrel Bisulfate (Plavix -) 75 mg PO DAILY [facility] Last Admin: 04/23/19 12:57 Dose: 75 mg Escitalopram Oxalate (Lexapro -) 10 mg PO DAILY [facility] Last Admin: 04/23/19 12:57 Dose: 10 mg Fluconazole (Diflucan -) 100 mg PO DAILY [facility] Last Admin: 04/23/19 12:57 Dose: 100 mg Furosemide (Lasix -) 20 mg PO Q2D [facility] Last Admin: 04/22/19 13:32 Dose: 20 mg Guaifenesin (Robitussin -) 10 ml PO Q6H PRN PRN Reason: COUGH Last Admin: 04/23/19 12:56 Dose: 10 ml Heparin Sodium (Porcine) (Heparin -) 5,000 unit SQ BID [facility] Last Admin: 04/23/19 22:26 Dose: 5,000 unit Vancomycin HCl (Vancomycin (Pre-Docked)) 1,000 mg in 250 mls @ 166.667 mls/hr IVPB Q12H [facility]; Protocol Last Admin: 04/23/19 17:43 Dose: 166.667 mls/hr Acyclovir 600 mg/ Dextrose 112 mls @ 100 mls/hr IVPB Q8H-IV [facility] Last Admin: 04/23/19 18:12 Dose: 100 mls/hr Levothyroxine Sodium (Synthroid -) 75 mcg PO DAILY@0700 [facility] Last Admin: 04/23/19 06:15 Dose: 75 mcg Neomycin/Polymyxin/Hydrocortisone (Cortisporin Otic Suspenstion -) 4 drop AU Q6HPO [facility] Last Admin: 04/23/19 18:07 Dose: 4 drop Nystatin (Nystop Powder -) 1 applic TP BID [facility] Last Admin: 04/23/19 22:26 Dose: 1 applic Pantoprazole Sodium (Protonix -) 40 mg PO DAILY [facility] Last Admin: 04/23/19 12:57 Dose: 40 mg Potassium Chloride (K-Dur -) 10 meq PO Q48H [facility] Tobramycin Sulfate (Tobrex Ophthalmic Solution -) 1 drop OU TID [facility] Last Admin: 04/23/19 22:27 Dose: 1 drop - Objective Vital Signs: Vital Signs Temperature 98.1 F 04/23/19 18:31 Pulse Rate 79 04/23/19 18:31 Respiratory Rate 18 04/23/19 18:31 Blood Pressure 116/65 04/23/19 18:31 O2 Sat by Pulse Oximetry (%) 100 04/23/19 10:00 Neck: Yes: WNL, Supple Cardiovascular: Yes: WNL, Regular Rate and Rhythm Respiratory: Yes: WNL, Regular, CTA Bilaterally Gastrointestinal: Yes: WNL, Normal Bowel Sounds, Soft Edema: No Labs: CBC, BMP 04/23/19 06:50 04/23/19 06:50 INR, PTT INR 1.11 (0.83-1.09) H 04/15/19 15:15 Problem List - Problems (1) Otitis externa Assessment/Plan: Cont IV antibxs as per ID Possible dc planning for am Code(s): H60.90 - UNSPECIFIED OTITIS EXTERNA, UNSPECIFIED EAR Qualifiers: Otitis externa type: unspecified type Chronicity: acute Laterality: right Qualified Code(s): H60.501 - Unspecified acute noninfective otitis externa, right ear (2) Multiple myeloma Assessment/Plan: As per onco Code(s): C90.00 - MULTIPLE MYELOMA NOT HAVING ACHIEVED REMISSION Qualifiers: Multiple myeloma remission status: not in remission Qualified Code(s): C90.00 - Multiple myeloma not having achieved remission (3) HTN (hypertension) Assessment/Plan: BP meds on hold due to orthostatic hypotension Code(s): I10 - ESSENTIAL (PRIMARY) HYPERTENSION Qualifiers: Hypertension type: unspecified Qualified Code(s): I10 - Essential (primary ) hypertension (4) Conjunctivitis Code(s): H10.9 - UNSPECIFIED CONJUNCTIVITIS (5) Syncope Assessment/Plan: Pt w/ orthostatic hypotension Echo showed normal EF DC tele As per cardio Code(s): R55 - SYNCOPE AND COLLAPSE (6) Depression Assessment/Plan: Cont lexapro Psych consult pending Code(s): F32.9 - MAJOR DEPRESSIVE DISORDER, SINGLE EPISODE, UNSPECIFIED (7) Anemia Assessment/Plan: Multifactorial Code(s): D64.9 - ANEMIA, UNSPECIFIED Qualifiers: Chronic kidney disease stage: unspecified stage (8) CAD (coronary artery disease) Code(s): I25.10 - ATHSCL HEART DISEASE OF [place] CORONARY ARTERY W/O ANG PCTRS Qualifiers: (9) CHF (congestive heart failure) Assessment/Plan: Diuretics on hold due to hypotension Code(s): I50.9 - HEART FAILURE, UNSPECIFIED Qualifiers: Heart failure type: systolic Heart failure chronicity: unspecified Qualified Code(s): I50.20 - Unspecified systolic (congestive) heart failure (10) CKD (chronic kidney disease) Code(s): N18.9 - CHRONIC KIDNEY DISEASE, UNSPECIFIED (11) HLD (hyperlipidemia) Assessment/Plan: Cont lipitor Code(s): E78.5 - HYPERLIPIDEMIA, UNSPECIFIED Qualifiers: Hyperlipidemia type: unspecified Qualified Code(s): E78.5 - Hyperlipidemia , unspecified (12) Hypothyroidism Assessment/Plan: Cont levothyroxine Code(s): E03.9 - HYPOTHYROIDISM, UNSPECIFIED Qualifiers: Hypothyroidism type: acquired Qualified Code(s): E03.9 - Hypothyroidism, unspecified (13) PAF (paroxysmal atrial fibrillation) Assessment/Plan: No AC due to h/o rectal bleeding/rectal polyps Heart rate controlled Code(s): I48.0 - PAROXYSMAL ATRIAL FIBRILLATION
[2019-04-24] MEDS: NEOMYCIN/POLYMYXN/HC OTIC SUSPENSION 10 ML BOTTLE AU SCH ×4 (03:14→17:53)
[2019-04-24] MEDS: ACYCLOVIR INJECTION 600 MG in DEXTROSE 5%-WATER - 100 ML IVPB SCH ×2 (03:15→10:59)
[2019-04-24] MEDS: VANCOMYCIN 1 GRAM (PRE-DOCKED) 1,000 MG/250 ML BAG IVPB SCH (03:51)
[2019-04-24] MEDS: TOBRAMYCIN 0.3% OPHTH SOLN 5 ML BOTTLE OU SCH ×3 (06:38→23:05)
[2019-04-24] MEDS: LEVOTHYROXINE NA 75 MCG TABLET (FP) PO SCH (07:09)
[2019-04-24] MEDS ORDERED: POTASSIUM CHLORIDE TABS 10 MEQ TABLET.ER (FP) PO SCH (10:00)
[2019-04-24] MEDS ORDERED: ACETAMINOPHEN 325 MG TABLET (FP) PO PRN (10:14)
[2019-04-24] MEDS: ASPIRIN 81 MG CHEWABLE TABLETS PO SCH (11:00)
[2019-04-24] MEDS: FLUCONAZOLE 100 MG TABLET (UD) PO SCH (11:00)
[2019-04-24] MEDS: ESCITALOPRAM OXALATE 10 MG TABLET (FP) PO SCH (11:00)
[2019-04-24] MEDS: PANTOPRAZOLE 40 MG TABLET (FP) PO SCH (11:00)
[2019-04-24] MEDS: FUROSEMIDE 20 MG TABLET (FP) PO SCH (11:00)
[2019-04-24] MEDS: CLOPIDOGREL BISULFATE 75 MG TABLET (FP) PO SCH (11:00)
[2019-04-24] MEDS: ALLOPURINOL 300 MG TABLET (FP) PO SCH (11:00)
[2019-04-24] MEDS: HEPARIN NA (PORCINE) 5,000 UNITS/ML 1ML VIAL SQ SCH ×2 (11:00→23:05)
[2019-04-24] MEDS: NYSTATIN POWDER 100,000 UNITS/GM - 15 GM TOPICAL POWDER TP SCH ×2 (11:00→23:05)
--- NOTE | 2019-04-24 14:53 | PN ---
Progress Note, Physician History of Present Illness: Low grade temp noted No c/o ear pain. Denies discharge No visual complaints No fever/ chills - Current Medication List Current Medications: Active Medications Acetaminophen (Tylenol -) 650 mg PO Q6H PRN PRN Reason: PAIN LEVEL 6-10 Last Admin: 04/24/19 13:25 Dose: 650 mg Allopurinol (Zyloprim -) 300 mg PO DAILY [facility] Last Admin: 04/24/19 11:00 Dose: 300 mg Aspirin (Asa -) 81 mg PO DAILY [facility] Last Admin: 04/24/19 11:00 Dose: 81 mg Atorvastatin Calcium (Lipitor -) 40 mg PO HS [facility] Last Admin: 04/23/19 22:26 Dose: 40 mg Clopidogrel Bisulfate (Plavix -) 75 mg PO DAILY [facility] Last Admin: 04/24/19 11:00 Dose: 75 mg Escitalopram Oxalate (Lexapro -) 10 mg PO DAILY [facility] Last Admin: 04/24/19 11:00 Dose: 10 mg Fluconazole (Diflucan -) 100 mg PO DAILY [facility] Last Admin: 04/24/19 11:00 Dose: 100 mg Furosemide (Lasix -) 20 mg PO Q2D [facility] Last Admin: 04/24/19 11:00 Dose: 20 mg Guaifenesin (Robitussin -) 10 ml PO Q6H PRN PRN Reason: COUGH Last Admin: 04/23/19 12:56 Dose: 10 ml Heparin Sodium (Porcine) (Heparin -) 5,000 unit SQ BID [facility] Last Admin: 04/24/19 11:00 Dose: 5,000 unit Vancomycin HCl (Vancomycin (Pre-Docked)) 1,000 mg in 250 mls @ 166.667 mls/hr IVPB Q12H [facility]; Protocol Last Admin: 04/24/19 03:51 Dose: 166.667 mls/hr Acyclovir 600 mg/ Dextrose 112 mls @ 100 mls/hr IVPB Q8H-IV [facility] Last Admin: 04/24/19 10:59 Dose: 100 mls/hr Levothyroxine Sodium (Synthroid -) 75 mcg PO DAILY@0700 [facility] Last Admin: 04/24/19 07:09 Dose: 75 mcg Neomycin/Polymyxin/Hydrocortisone (Cortisporin Otic Suspenstion -) 4 drop AU Q6HPO [facility] Last Admin: 04/24/19 12:22 Dose: 4 drop Nystatin (Nystop Powder -) 1 applic TP BID [facility] Last Admin: 04/24/19 11:00 Dose: 1 applic Pantoprazole Sodium (Protonix -) 40 mg PO DAILY [facility] Last Admin: 04/24/19 11:00 Dose: 40 mg Potassium Chloride (K-Dur -) 10 meq PO Q48H [facility] Last Admin: 04/24/19 11:00 Dose: 10 meq Tobramycin Sulfate (Tobrex Ophthalmic Solution -) 1 drop OU TID [facility] Last Admin: 04/24/19 06:38 Dose: 1 drop - Objective Vital Signs: Vital Signs Temperature 99.4 F 04/24/19 14:39 Pulse Rate 87 04/24/19 14:39 Respiratory Rate 20 04/24/19 14:39 Blood Pressure 115/64 04/24/19 14:39 O2 Sat by Pulse Oximetry (%) 100 04/23/19 21:00 Constitutional: Yes: No Distress Eyes: Yes: Other (no periorbital swelling) HENT: Yes: Other (no ear swellling or discharge) Cardiovascular: Yes: Regular Rate and Rhythm, S1, S2 Respiratory: Yes: CTA Bilaterally Gastrointestinal: Yes: Normal Bowel Sounds, Soft. No: Tenderness Labs: CBC, BMP 04/23/19 06:50 04/23/19 06:50 INR, PTT INR 1.11 (0.83-1.09) H 04/15/19 15:15 Assessment/Plan Otitis externa resolved Hx Myeloma on immunosuppressive tx PCN allergy ENT EVALUATION APPRECIATED D/C antibiotics
[2019-04-24] MEDS: ATORVASTATIN CA 20 MG TABLET (FP) PO SCH (23:05)
[2019-04-25] MEDS: NEOMYCIN/POLYMYXN/HC OTIC SUSPENSION 10 ML BOTTLE AU SCH ×3 (01:09→12:53)
[2019-04-25] MEDS: LEVOTHYROXINE NA 75 MCG TABLET (FP) PO SCH (06:15)
[2019-04-25] MEDS: TOBRAMYCIN 0.3% OPHTH SOLN 5 ML BOTTLE OU SCH (06:15)
--- NOTE | 2019-04-25 08:38 | PN ---
Progress Note, Physician History of Present Illness: The patient is a 74-year-old female, with a past medical history of HTN, HLD, [place] , CHF, multiple myeloma (on Velcade and Revlamide), who presents to the ED s/p 2 syncopal episodes today. The patient was having blood drawn during a routine visit with her oncologist when she suddenly became dizzy and lightheaded and subsequently lost consciousness. Patient was seated when she lost consciousness. Denies any head trauma. Rapid response was called and upon arrival of the ED team, the patient was witnessed to have another syncopal episode. Patient does not recall the incident. She denies ever having CP/SOB/ palpitations. Denies F/C. Had one episode of diarrhea this morning, no vomiting. Denies abdominal pain. PMH h/o CAD (NSTEMI; s/p HOLLY D1), Chronic systolic CHF, mildly reduced LV function with EF 45%, HTN, Hyperlipidemia,depression, Asthma, hiatal hernia, rectal polyp , Renal Insufficiency, proteinuria, Multiple Myeloma on velcade/decadron, revlamide, anemia, ?gout, and Hypothyroidism, - Current Medication List Current Medications: Active Medications Acetaminophen (Tylenol -) 650 mg PO Q6H PRN PRN Reason: PAIN LEVEL 6-10 Last Admin: 04/24/19 13:25 Dose: 650 mg Allopurinol (Zyloprim -) 300 mg PO DAILY [facility] Last Admin: 04/24/19 11:00 Dose: 300 mg Aspirin (Asa -) 81 mg PO DAILY [facility] Last Admin: 04/24/19 11:00 Dose: 81 mg Atorvastatin Calcium (Lipitor -) 40 mg PO HS [facility] Last Admin: 04/24/19 23:05 Dose: 40 mg Clopidogrel Bisulfate (Plavix -) 75 mg PO DAILY [facility] Last Admin: 04/24/19 11:00 Dose: 75 mg Escitalopram Oxalate (Lexapro -) 10 mg PO DAILY [facility] Last Admin: 04/24/19 11:00 Dose: 10 mg Fluconazole (Diflucan -) 100 mg PO DAILY [facility] Last Admin: 04/24/19 11:00 Dose: 100 mg Furosemide (Lasix -) 20 mg PO Q2D [facility] Last Admin: 04/24/19 11:00 Dose: 20 mg Guaifenesin (Robitussin -) 10 ml PO Q6H PRN PRN Reason: COUGH Last Admin: 04/23/19 12:56 Dose: 10 ml Heparin Sodium (Porcine) (Heparin -) 5,000 unit SQ BID [facility] Last Admin: 04/24/19 23:05 Dose: 5,000 unit Levothyroxine Sodium (Synthroid -) 75 mcg PO DAILY@0700 [facility] Last Admin: 04/25/19 06:15 Dose: 75 mcg Neomycin/Polymyxin/Hydrocortisone (Cortisporin Otic Suspenstion -) 4 drop AU Q6HPO [facility] Last Admin: 04/25/19 06:15 Dose: 4 drop Nystatin (Nystop Powder -) 1 applic TP BID [facility] Last Admin: 04/24/19 23:05 Dose: 1 applic Pantoprazole Sodium (Protonix -) 40 mg PO DAILY [facility] Last Admin: 04/24/19 11:00 Dose: 40 mg Potassium Chloride (K-Dur -) 10 meq PO Q48H [facility] Last Admin: 04/24/19 11:00 Dose: 10 meq Tobramycin Sulfate (Tobrex Ophthalmic Solution -) 1 drop OU TID [facility] Last Admin: 04/25/19 06:15 Dose: 1 drop - Objective Vital Signs: Vital Signs Temperature 99.0 F 04/25/19 06:54 Pulse Rate 92 H 04/25/19 06:54 Respiratory Rate 20 04/25/19 06:54 Blood Pressure 138/78 04/25/19 06:54 O2 Sat by Pulse Oximetry (%) 99 04/24/19 21:00 Eyes: Yes: WNL, Conjunctiva Clear, EOM Intact HENT: Yes: WNL, Atraumatic, Normocephalic Neck: Yes: WNL, Supple, Trachea Midline Cardiovascular: Yes: WNL, Regular Rate and Rhythm Respiratory: Yes: WNL, Regular, CTA Bilaterally Gastrointestinal: Yes: WNL, Normal Bowel Sounds Genitourinary: Yes: WNL Musculoskeletal: Yes: WNL Extremities: Yes: WNL Edema: No Integumentary: Yes: WNL Neurological: Yes: WNL, Alert, Oriented ...Motor Strength: WNL Psychiatric: Yes: WNL Labs: CBC, BMP 04/23/19 06:50 04/23/19 06:50 INR, PTT INR 1.11 (0.83-1.09) H 04/15/19 15:15 Problem List - Problems (1) Syncope Code(s): R55 - SYNCOPE AND COLLAPSE (2) CINTIA positive Code(s): R76.8 - OTHER SPECIFIED ABNORMAL IMMUNOLOGICAL FINDINGS IN SERUM (3) ASHD (arteriosclerotic heart disease) Code(s): I25.10 - ATHSCL HEART DISEASE OF [place] CORONARY ARTERY W/O ANG PCTRS (4) Abnormal ECG Code(s): R94.31 - ABNORMAL ELECTROCARDIOGRAM [ECG] [EKG] (5) Acute exacerbation of CHF (congestive heart failure) Code(s): I50.9 - HEART FAILURE, UNSPECIFIED (6) Acute on chronic renal failure Code(s): N17.9 - ACUTE KIDNEY FAILURE, UNSPECIFIED; N18.9 - CHRONIC KIDNEY DISEASE, UNSPECIFIED Qualifiers: Chronic kidney disease stage: stage 2 (mild) (7) Acute on chronic systolic CHF (congestive heart failure) Code(s): I50.23 - ACUTE ON CHRONIC SYSTOLIC (CONGESTIVE) HEART FAILURE (8) Acute respiratory failure Code(s): J96.00 - ACUTE RESPIRATORY FAILURE, UNSP W HYPOXIA OR HYPERCAPNIA (9) Adult onset hypothyroidism Code(s): E03.8 - OTHER SPECIFIED HYPOTHYROIDISM (10) Anemia Code(s): D64.9 - ANEMIA, UNSPECIFIED (11) Anemia Code(s): D64.9 - ANEMIA, UNSPECIFIED Qualifiers: Chronic kidney disease stage: unspecified stage (12) Anemia Code(s): D64.9 - ANEMIA, UNSPECIFIED Qualifiers: Anemia type: unspecified type Qualified Code(s): D64.9 - Anemia, unspecified (13) Anemia Code(s): D64.9 - ANEMIA, UNSPECIFIED Qualifiers: Chronic kidney disease stage: unspecified stage (14) Anxiety Code(s): F41.9 - ANXIETY DISORDER, UNSPECIFIED (15) Asymptomatic bacteriuria Code(s): R82.71 - BACTERIURIA (16) CAD (coronary artery disease) Code(s): I25.10 - ATHSCL HEART DISEASE OF [place] CORONARY ARTERY W/O ANG PCTRS Qualifiers: (17) CHF (congestive heart failure) Code(s): I50.9 - HEART FAILURE, UNSPECIFIED Qualifiers: Heart failure type: systolic Heart failure chronicity: unspecified Qualified Code(s): I50.20 - Unspecified systolic (congestive) heart failure (18) CKD (chronic kidney disease) Code(s): N18.9 - CHRONIC KIDNEY DISEASE, UNSPECIFIED (19) Chest pain Code(s): R07.9 - CHEST PAIN, UNSPECIFIED Qualifiers: Chest pain type: unspecified Qualified Code(s): R07.9 - Chest pain, unspecified (20) Cough Code(s): R05 - COUGH (21) Dehydration Code(s): E86.0 - DEHYDRATION (22) Diarrhea Code(s): R19.7 - DIARRHEA, UNSPECIFIED Qualifiers: Diarrhea type: unspecified type Qualified Code(s): R19.7 - Diarrhea, unspecified (23) Diarrhea Code(s): R19.7 - DIARRHEA, UNSPECIFIED Qualifiers: Diarrhea type: unspecified type Qualified Code(s): R19.7 - Diarrhea, unspecified (24) Dizziness Code(s): R42 - DIZZINESS AND GIDDINESS (25) Elevated troponin Code(s): R74.8 - ABNORMAL LEVELS OF OTHER SERUM ENZYMES (26) Elevated troponin Code(s): R74.8 - ABNORMAL LEVELS OF OTHER SERUM ENZYMES (27) Elevated troponin I level Code(s): R74.8 - ABNORMAL LEVELS OF OTHER SERUM ENZYMES (28) Facial swelling Code(s): R22.0 - LOCALIZED SWELLING, MASS AND LUMP, HEAD (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 - HEREDITARY DEFICIENCY OF OTHER CLOTTING FACTORS (30) Fever Code(s): R50.9 - FEVER, UNSPECIFIED (31) Gastric wall thickening Code(s): K31.89 - OTHER DISEASES OF STOMACH AND DUODENUM (32) HLD (hyperlipidemia) Code(s): E78.5 - HYPERLIPIDEMIA, UNSPECIFIED Qualifiers: Hyperlipidemia type: unspecified Qualified Code(s): E78.5 - Hyperlipidemia , unspecified (33) HTN (hypertension) Code(s): I10 - ESSENTIAL (PRIMARY) HYPERTENSION Qualifiers: Hypertension type: unspecified Qualified Code(s): I10 - Essential (primary ) hypertension (34) Headache Code(s): R51 - HEADACHE (35) History of heart artery stent Code(s): Z95.5 - PRESENCE OF CORONARY ANGIOPLASTY IMPLANT AND GRAFT (36) Hypoalbuminemia Code(s): E88.09 - OTH DISORDERS OF PLASMA-PROTEIN METABOLISM, NEC (37) Hypotension Code(s): I95.9 - HYPOTENSION, UNSPECIFIED Qualifiers: Hypotension type: other hypotension type Qualified Code(s): I95.89 - Other hypotension (38) Hypothyroidism Code(s): E03.9 - HYPOTHYROIDISM, UNSPECIFIED Qualifiers: Hypothyroidism type: acquired Qualified Code(s): E03.9 - Hypothyroidism, unspecified (39) Hypothyroidism Code(s): E03.9 - HYPOTHYROIDISM, UNSPECIFIED (40) Lichen amyloidosus Code(s): E85.4 - ORGAN-LIMITED AMYLOIDOSIS; L99 - OTH DISORDERS OF SKIN, SUBCU IN DISEASES CLASSD ELSWHR (41) Loss of appetite Code(s): R63.0 - ANOREXIA (42) Multiple myeloma Code(s): C90.00 - MULTIPLE MYELOMA NOT HAVING ACHIEVED REMISSION Qualifiers: Multiple myeloma remission status: not in remission Qualified Code(s): C90.00 - Multiple myeloma not having achieved remission (43) Multiple myeloma Code(s): C90.00 - MULTIPLE MYELOMA NOT HAVING ACHIEVED REMISSION Qualifiers: Multiple myeloma remission status: not in remission Qualified Code(s): C90.00 - Multiple myeloma not having achieved remission (44) Multiple myeloma Code(s): C90.00 - MULTIPLE MYELOMA NOT HAVING ACHIEVED REMISSION (45) Multiple myeloma Code(s): C90.00 - MULTIPLE MYELOMA NOT HAVING ACHIEVED REMISSION (46) Otitis Code(s): H66.90 - OTITIS MEDIA, UNSPECIFIED, UNSPECIFIED EAR (47) Otitis externa Code(s): H60.90 - UNSPECIFIED OTITIS EXTERNA, UNSPECIFIED EAR Qualifiers: Otitis externa type: unspecified type Chronicity: acute Laterality: right Qualified Code(s): H60.501 - Unspecified acute noninfective otitis externa, right ear (48) Otitis media with rupture of tympanic membrane Code(s): H66.90 - OTITIS MEDIA, UNSPECIFIED, UNSPECIFIED EAR; H72.90 - UNSP PERFORATION OF TYMPANIC MEMBRANE, UNSPECIFIED EAR Qualifiers: Laterality: right Qualified Code(s): H66.91 - Otitis media, unspecified, right ear; H72.91 - Unspecified perforation of tympanic membrane, right ear (49) PAF (paroxysmal atrial fibrillation) Code(s): I48.0 - PAROXYSMAL ATRIAL FIBRILLATION (50) PHT (pulmonary hypertension) Code(s): I27.20 - PULMONARY HYPERTENSION, UNSPECIFIED (51) Penicillin allergy Code(s): Z88.0 - ALLERGY STATUS TO PENICILLIN (52) Pressure ulcer of sacral region, stage 1 Code(s): L89.151 - PRESSURE ULCER OF SACRAL REGION, STAGE 1 (53) Proteinuria Code(s): R80.9 - PROTEINURIA, UNSPECIFIED Qualifiers: Proteinuria type: persistent Qualified Code(s): R80.1 - Persistent proteinuria, unspecified (54) Rectal bleed Code(s): K62.5 - HEMORRHAGE OF ANUS AND RECTUM (55) Rectal pain Code(s): K62.89 - OTHER SPECIFIED DISEASES OF ANUS AND RECTUM (56) Renal dysfunction Code(s): N28.9 - DISORDER OF KIDNEY AND URETER, UNSPECIFIED (57) Respiratory insufficiency Code(s): R06.89 - OTHER ABNORMALITIES OF BREATHING (58) Troponin I above reference range Code(s): R74.8 - ABNORMAL LEVELS OF OTHER SERUM ENZYMES (59) Vomiting Code(s): R11.10 - VOMITING, UNSPECIFIED Qualifiers: Vomiting type: unspecified Vomiting Intractability: unspecified Nausea presence: unspecified Qualified Code(s): R11.10 - Vomiting, unspecified (60) Weakness Code(s): R53.1 - WEAKNESS (61) Weight loss Code(s): R63.4 - ABNORMAL WEIGHT LOSS Assessment/Plan Problems (1) Syncope Assessment/Plan: No further episodes. Maintain hydration. ECHO: normal LVEF; abnormal diastolic compliance. Code(s): R55 - SYNCOPE AND COLLAPSE (2) HTN (hypertension) Code(s): I10 - ESSENTIAL (PRIMARY) HYPERTENSION Qualifiers: Hypertension type: unspecified Qualified Code(s): I10 - Essential (primary ) hypertension (3) Multiple myeloma Code(s): C90.00 - MULTIPLE MYELOMA NOT HAVING ACHIEVED REMISSION Qualifiers: Multiple myeloma remission status: not in remission Qualified Code(s): C90.00 - Multiple myeloma not having achieved remission (4) Weakness Code(s): R53.1 - WEAKNESS (5) Weight loss Code(s): R63.4 - ABNORMAL WEIGHT LOSS (6) Hypoalbuminemia Code(s): E88.09 - OTH DISORDERS OF PLASMA-PROTEIN METABOLISM, NEC (7) Gout Code(s): M10.9 - GOUT, UNSPECIFIED (8) Shingles Code(s): B02.9 - ZOSTER WITHOUT COMPLICATIONS (9) Hypothyroidism Code(s): E03.9 - HYPOTHYROIDISM, UNSPECIFIED Qualifiers: Hypothyroidism type: acquired Qualified Code(s): E03.9 - Hypothyroidism, unspecified (10) HLD (hyperlipidemia) Code(s): E78.5 - HYPERLIPIDEMIA, UNSPECIFIED Qualifiers: Hyperlipidemia type: unspecified Qualified Code(s): E78.5 - Hyperlipidemia , unspecified (11) ASHD (arteriosclerotic heart disease) Code(s): I25.10 - ATHSCL HEART DISEASE OF [place] CORONARY ARTERY W/O ANG PCTRS (12) Depression Code(s): F32.9 - MAJOR DEPRESSIVE DISORDER, SINGLE EPISODE, UNSPECIFIED
[2019-04-25] MEDS: ESCITALOPRAM OXALATE 10 MG TABLET (FP) PO SCH (10:21)
[2019-04-25] MEDS: PANTOPRAZOLE 40 MG TABLET (FP) PO SCH (10:21)
[2019-04-25] MEDS: ALLOPURINOL 300 MG TABLET (FP) PO SCH (10:21)
[2019-04-25] MEDS: ASPIRIN 81 MG CHEWABLE TABLETS PO SCH (10:21)
[2019-04-25] MEDS: FLUCONAZOLE 100 MG TABLET (UD) PO SCH (10:21)
[2019-04-25] MEDS: HEPARIN NA (PORCINE) 5,000 UNITS/ML 1ML VIAL SQ SCH (10:21)
[2019-04-25] MEDS: CLOPIDOGREL BISULFATE 75 MG TABLET (FP) PO SCH (10:21)
[2019-04-25 10:25] VITALS: BP 120/64; PULSE 88
[2019-04-25] MEDS: NYSTATIN POWDER 100,000 UNITS/GM - 15 GM TOPICAL POWDER TP SCH (12:53)
[2019-04-25] MEDS ORDERED: LOSARTAN POTASSIUM 25 MG TABLET PO SCH (15:20)
--- NOTE | 2019-04-25 15:20 | PN ---
Progress Note, Physician History of Present Illness: Pt seen and examined at bedside. She is awake and alert. She is eager to go home. She denies shortness of breath or lower ext edema. - Current Medication List Current Medications: Active Medications Acetaminophen (Tylenol -) 650 mg PO Q6H PRN PRN Reason: PAIN LEVEL 6-10 Last Admin: 04/24/19 13:25 Dose: 650 mg Allopurinol (Zyloprim -) 300 mg PO DAILY [facility] Last Admin: 04/25/19 10:21 Dose: 300 mg Aspirin (Asa -) 81 mg PO DAILY [facility] Last Admin: 04/25/19 10:21 Dose: 81 mg Atorvastatin Calcium (Lipitor -) 40 mg PO HS [facility] Last Admin: 04/24/19 23:05 Dose: 40 mg Clopidogrel Bisulfate (Plavix -) 75 mg PO DAILY [facility] Last Admin: 04/25/19 10:21 Dose: 75 mg Escitalopram Oxalate (Lexapro -) 10 mg PO DAILY [facility] Last Admin: 04/25/19 10:21 Dose: 10 mg Fluconazole (Diflucan -) 100 mg PO DAILY [facility] Last Admin: 04/25/19 10:21 Dose: 100 mg Furosemide (Lasix -) 20 mg PO Q2D [facility] Last Admin: 04/24/19 11:00 Dose: 20 mg Guaifenesin (Robitussin -) 10 ml PO Q6H PRN PRN Reason: COUGH Last Admin: 04/23/19 12:56 Dose: 10 ml Heparin Sodium (Porcine) (Heparin -) 5,000 unit SQ BID [facility] Last Admin: 04/25/19 10:21 Dose: 5,000 unit Levothyroxine Sodium (Synthroid -) 75 mcg PO DAILY@0700 [facility] Last Admin: 04/25/19 06:15 Dose: 75 mcg Neomycin/Polymyxin/Hydrocortisone (Cortisporin Otic Suspenstion -) 4 drop AU Q6HPO [facility] Last Admin: 04/25/19 12:53 Dose: 4 drop Nystatin (Nystop Powder -) 1 applic TP BID [facility] Last Admin: 04/25/19 12:53 Dose: 1 applic Pantoprazole Sodium (Protonix -) 40 mg PO DAILY [facility] Last Admin: 04/25/19 10:21 Dose: 40 mg Potassium Chloride (K-Dur -) 10 meq PO Q48H [facility] Last Admin: 04/24/19 11:00 Dose: 10 meq Tobramycin Sulfate (Tobrex Ophthalmic Solution -) 1 drop OU TID [facility] Last Admin: 04/25/19 06:15 Dose: 1 drop - Objective Vital Signs: Vital Signs Temperature 99 F 04/25/19 10:00 Pulse Rate 88 04/25/19 10:00 Respiratory Rate 20 04/25/19 10:00 Blood Pressure 120/64 04/25/19 10:00 O2 Sat by Pulse Oximetry (%) 99 04/25/19 09:00 Constitutional: Yes: Calm Eyes: Yes: Conjunctiva Clear HENT: Yes: Atraumatic Neck: Yes: Supple Cardiovascular: Yes: S1, S2 Respiratory: Yes: CTA Bilaterally Gastrointestinal: Yes: Soft Genitourinary: Yes: WNL Musculoskeletal: Yes: WNL Edema: No Wound/Incision: Yes: Clean/Dry Neurological: Yes: Oriented Psychiatric: Yes: Oriented Labs: CBC, BMP 04/23/19 06:50 04/23/19 06:50 INR, PTT INR 1.11 (0.83-1.09) H 04/15/19 15:15 Problem List - Problems (1) Hypokalemia Code(s): E87.6 - HYPOKALEMIA Assessment/Plan Current Medications Generic Name Dose Route Start Last Admin Trade Name Freq PRN Reason Stop Dose Admin Acetaminophen 650 mg 04/24/19 10:14 04/24/19 13:25 Tylenol - PO 650 mg Q6H PRN Administration PAIN LEVEL 6-10 Allopurinol 300 mg 04/14/19 10:00 04/25/19 10:21 Zyloprim - PO 300 mg DAILY [facility] Administration Aspirin 81 mg 04/14/19 10:00 04/25/19 10:21 Asa - PO 81 mg DAILY [facility] Administration Atorvastatin Calcium 40 mg 04/13/19 22:00 04/24/19 23:05 Lipitor - PO 40 mg HS [facility] Administration Clopidogrel Bisulfate 75 mg 04/14/19 10:00 04/25/19 10:21 Plavix - PO 75 mg DAILY [facility] Administration Escitalopram Oxalate 10 mg 04/16/19 10:00 04/25/19 10:21 Lexapro - PO 10 mg DAILY [facility] Administration Fluconazole 100 mg 04/14/19 22:00 04/25/19 10:21 Diflucan - PO 100 mg DAILY [facility] Administration Furosemide 20 mg 04/22/19 13:30 04/24/19 11:00 Lasix - PO 20 mg Q2D [facility] Administration Guaifenesin 10 ml 04/20/19 20:33 04/23/19 12:56 Robitussin - PO 10 ml Q6H PRN Administration COUGH Heparin Sodium (Porcine) 5,000 unit 04/13/19 22:00 04/25/19 10:21 Heparin - SQ 5,000 unit BID [facility] Administration Levothyroxine Sodium 75 mcg 04/14/19 07:00 04/25/19 06:15 Synthroid - PO 75 mcg DAILY@0700 [facility] Administration Neomycin/Polymyxin/Hydrocortisone 4 drop 04/21/19 00:00 04/25/19 12:53 Cortisporin Otic Suspenstion - AU 4 drop Q6HPO [facility] Administration Nystatin 1 applic 04/14/19 22:00 04/25/19 12:53 Nystop Powder - TP 1 applic BID [facility] Administration Pantoprazole Sodium 40 mg 04/14/19 10:00 04/25/19 10:21 Protonix - PO 40 mg DAILY [facility] Administration Potassium Chloride 10 meq 04/24/19 10:00 04/24/19 11:00 K-Dur - PO 10 meq Q48H [facility] Administration Tobramycin Sulfate 1 drop 04/20/19 22:00 04/25/19 06:15 Tobrex Ophthalmic Solution - OU 1 drop TID [facility] Administration Impression 1. proteinuria 2. multiple myeloma 3. amyloid 4. syncope 5. hypotension 6. HLD 7. hypothyroidism 8. anemia 9. CKD 10. hypokalemia Plan - renal function stable - bp stable - will retry losartan 25 mg daily - stop potassium supplements - lasix 20 mg q 48 hrs - pt has follow up on Thursday - discussed with heme onc - will follow PRN
--- NOTE | 2019-04-25 15:29 | PN ---
Progress Note (short form) - Note Progress Note: Patient seen and examined Feels well. No complaints Last Vital Signs Temp Pulse Resp BP Pulse Ox 99 F 88 20 120/64 99 04/25/19 10:00 04/25/19 10:00 04/25/19 10:00 04/25/19 10:00 04/25/19 09:00 Cor: RSR, No murmurs, No gallops Lungs: Clear to P&A Abd: Soft, Normal bowel sounds, No organomegaly Ext:No significant edema Labs/meds reviewed A/P 74 y/o patient with myeloma/amyloid/ nephrotic syndrome/ CHF rt. ear otitis externa and b/l blepharitis s/p empiric antibiotic coverage Improved Discussed with renal team To d/c home on lasix 20mg QOD/ losartan 25 mg daily To f/u in the office
[2019-04-25 15:37] VITALS: TEMP 98.6
--- NOTE | 2019-04-25 17:58 | DS ---
Physical Examination Vital Signs: Vital Signs Temperature 98.6 F 04/25/19 15:35 Pulse Rate 88 04/25/19 15:35 Respiratory Rate 20 04/25/19 15:35 Blood Pressure 120/64 04/25/19 10:00 O2 Sat by Pulse Oximetry (%) 99 04/25/19 09:00 Labs: CBC, BMP 04/23/19 06:50 04/23/19 06:50 Discharge Summary Reason For Visit: SYNCOPE Condition: Good - Instructions Diet, Activity, Other Instructions: 2 gram sodium diet See Dr Milton Benavides in 1 week See your oncologist Dr Stuart in 1 week Disposition: VNS/HOME HEALTH CARE - Home Medications Comprehensive Discharge Medication List: Ambulatory Orders Allopurinol [Zyloprim -] 300 mg PO DAILY #30 tablet 11/09/18 Pantoprazole Sodium [Protonix -] 40 mg PO DAILY #30 tablet.ec 11/09/18 Aspirin [ASA -] 81 mg PO DAILY 12/30/18 Clopidogrel Bisulfate [Plavix -] 75 mg PO DAILY #30 tablet 01/07/19 Valacyclovir HCl [Valtrex -] 500 mg PO DAILY #30 tablet 01/07/19 Levothyroxine [Synthroid -] 75 mcg PO DAILY@0700 01/28/19 Potassium Chloride [K-Dur -] 10 meq PO DAILY 01/28/19 Atorvastatin Ca [Lipitor] 40 mg PO HS 04/09/19 Loratadine 10 mg PO DAILY 04/09/19 Escitalopram Oxalate [Lexapro -] 10 mg PO DAILY #30 tablet 04/25/19 Furosemide [Lasix -] 20 mg PO Q2D #15 tablet 04/25/19 Losartan Potassium [Cozaar -] 25 mg PO DAILY #30 tablet 04/25/19
== END 2019-04-25 16:12 | disposition home health service (06) | DRG 841 ==
LOC: JER 09:39 → JERBED 12:27 → J4S 20:27 → OBSVTOIN 21:03 → J7W 04-23 10:15
PROVIDERS: ADMIT Internal Medicine; ATTEND Internal Medicine
DX: C90.00 Multiple myeloma not having achieved remission (principal); E85.9 Amyloidosis, unspecified; N17.9 Acute kidney failure, unspecified; I13.0 Hypertensive heart and chronic kidney disease with heart failure and stage 1 through stage 4 chronic kidney disease, or unspecified chronic kidney disease; I50.22 Chronic systolic (congestive) heart failure; N18.9 Chronic kidney disease, unspecified; M10.9 Gout, unspecified; I25.10 Atherosclerotic heart disease of native coronary artery without angina pectoris; E03.9 Hypothyroidism, unspecified; R55 Syncope and collapse; I10 Essential (primary) hypertension; E87.6 Hypokalemia; K44.9 Diaphragmatic hernia without obstruction or gangrene; H01.006 Unspecified blepharitis left eye, unspecified eyelid; H01.003 Unspecified blepharitis right eye, unspecified eyelid; E88.09 Other disorders of plasma-protein metabolism, not elsewhere classified; H60.91 Unspecified otitis externa, right ear; R63.4 Abnormal weight loss; Z68.22 Body mass index [BMI] 22.0-22.9, adult; H10.9 Unspecified conjunctivitis; R04.0 Epistaxis; F32.9 Major depressive disorder, single episode, unspecified; I48.0 Paroxysmal atrial fibrillation; D64.9 Anemia, unspecified; D72.819 Decreased white blood cell count, unspecified; I25.2 Old myocardial infarction; K76.89 Other specified diseases of liver; E86.0 Dehydration; I95.9 Hypotension, unspecified; G62.0 Drug-induced polyneuropathy; T45.1X5A Adverse effect of antineoplastic and immunosuppressive drugs, initial encounter; Y92.89 Other specified places as the place of occurrence of the external cause; Z95.5 Presence of coronary angioplasty implant and graft; Z88.0 Allergy status to penicillin
CPT/HCPCS: 36415; 70450-TC; 71045-TC-FY; 80048; 80053; 81003; 82550; 82607; 82728; 82747; 82962; 83540; 83550; 83735; 84443; 84484; 85014; 85025; 85027; 85610; 85730; 87040; 93005; 93010; 93306-TC; 97116-GP; 97161-GP; 99284-25; G0378; G0480; J1644; J7030

== ENCOUNTER 2019-04-27 07:07 | Day surgery (SDC) | payer OTHER ==
[2019-04-27] MEDS ORDERED: DEXAMETHASONE 4 MG TABLET (FP) PO ONE (09:00)
[2019-04-27] MEDS ORDERED: ONDANSETRON 8 MG TABLET (FP) PO ONE (09:00)
[2019-04-27] MEDS ORDERED: BORTEZOMIB (VELCADE) 2.5 MG/ML SUB-Q INJECTION SQ ONE (09:15)
[2019-04-27 10:34] LABS: HEMATOCRIT 30.8 % (32.4-45.2); HEMOGLOBIN 10.3 GM/dL (10.7-15.3); LYMPH % 29.1 % (8-40); MCH 33.1 pg (25.7-33.7); MCHC 33.5 g/dl (32.0-36.0); MEAN CELL VOLUME 98.9 fl (80-96); MEAN PLT VOLUME 8.2 fl (7.5-11.1); MONO % 9.1 % (3.8-10.2); NEUT % 59.8 % (42.8-82.8); PLATELET COUNT 281 K/MM3 (134-434); RBC 3.11 M/mm3 (3.60-5.2); RDW 18.2 % (11.6-15.6)
[2019-04-27 11:07] LABS: ALBUMIN 1.8 g/dl (3.4-5.0); BILIRUBIN,TOTAL 0.2 mg/dL (0.2-1); BLOOD UREA NITROGEN 23.4 mg/dL (7-18); CALCIUM 8.8 mg/dL (8.5-10.1); CREATININE 1.2 mg/dL (0.55-1.3); MAGNESIUM 2.5 mg/dL (1.8-2.4); POTASSIUM 4.3 mmol/L (3.5-5.1); TOT PROT 6.7 g/dl (6.4-8.2)
[2019-04-27 11:21] LABS: URIC ACID 3.4 mg/dL (2.6-7.2)
[2019-04-27 16:02] VITALS: BP 124/74; PULSE 72; TEMP 98.8
== END 2019-04-27 12:50 | disposition home or self-care (01) ==
LOC: JONCCHEMO 07:07 → J7W 11:43 → JONCCHEMO 12:50
PROVIDERS: ATTEND Internal Medicine Hematology & Oncology
DX: Z51.11 Encounter for antineoplastic chemotherapy (principal); C90.00 Multiple myeloma not having achieved remission
CPT/HCPCS: 36415; 80053; 83615; 83735; 84550; 85025; J9041

== ENCOUNTER 2019-05-04 07:08 | Day surgery (SDC) | payer OTHER ==
[2019-05-04] MEDS ORDERED: DEXAMETHASONE 4 MG TABLET (FP) PO ONE (09:00)
[2019-05-04] MEDS ORDERED: ONDANSETRON 8 MG TABLET (FP) PO ONE (09:00)
[2019-05-04] MEDS ORDERED: BORTEZOMIB (VELCADE) 2.5 MG/ML SUB-Q INJECTION SQ ONE (09:15)
[2019-05-04 10:45] LABS: BASO % 1.1 % (0-2.0); HEMATOCRIT 31.3 % (32.4-45.2); HEMOGLOBIN 10.3 GM/dL (10.7-15.3); LYMPH % 30.5 % (8-40); MCH 32.5 pg (25.7-33.7); MCHC 32.9 g/dl (32.0-36.0); MEAN PLT VOLUME 9.2 fl (7.5-11.1); MONO % 9.1 % (3.8-10.2); NEUT % 59.3 % (42.8-82.8); PLATELET COUNT 200 K/MM3 (134-434); RBC 3.17 M/mm3 (3.60-5.2); RDW 19.3 % (11.6-15.6)
[2019-05-04 11:19] LABS: ALBUMIN 1.6 g/dl (3.4-5.0); BILIRUBIN,DIRECT 0.1 mg/dL (0.0-0.2); BILIRUBIN,TOTAL 0.3 mg/dL (0.2-1); BLOOD UREA NITROGEN 17.3 mg/dL (7-18); CALCIUM 8.1 mg/dL (8.5-10.1); CREATININE 1.2 mg/dL (0.55-1.3); MAGNESIUM 2.4 mg/dL (1.8-2.4); POTASSIUM 3.6 mmol/L (3.5-5.1); TOT PROT 6.5 g/dl (6.4-8.2); URIC ACID 3.3 mg/dL (2.6-7.2)
[2019-05-04 18:10] VITALS: BP 99/54; PULSE 68; TEMP 99.4
== END 2019-05-04 12:30 | disposition home or self-care (01) ==
LOC: JONCCHEMO 07:08 → J7W 11:13 → JONCCHEMO 12:30
PROVIDERS: ATTEND Internal Medicine Hematology & Oncology
DX: Z51.11 Encounter for antineoplastic chemotherapy (principal); C90.00 Multiple myeloma not having achieved remission
CPT/HCPCS: 36415; 80048; 80076; 83615; 83735; 84550; 85025; J9041

== ENCOUNTER 2019-05-11 06:47 | Day surgery (SDC) | payer OTHER ==
[2019-05-11 09:49] LABS: BASO % 0.4 % (0-2.0); HEMATOCRIT 29.9 % (32.4-45.2); LYMPH % 24.7 % (8-40); MCH 32.7 pg (25.7-33.7); MCHC 33.3 g/dl (32.0-36.0); MEAN CELL VOLUME 98.2 fl (80-96); MEAN PLT VOLUME 9.5 fl (7.5-11.1); MONO % 8.4 % (3.8-10.2); NEUT % 66.5 % (42.8-82.8); PLATELET COUNT 125 K/MM3 (134-434); RBC 3.04 M/mm3 (3.60-5.2); RDW 19.1 % (11.6-15.6); WHITE BLOOD COUNT 4.8 K/mm3 (4.0-10.0)
[2019-05-11] MEDS ORDERED: DEXAMETHASONE 4 MG TABLET (FP) PO ONE (10:00)
[2019-05-11] MEDS ORDERED: ONDANSETRON 8 MG TABLET (FP) PO ONE (10:00)
[2019-05-11 10:18] LABS: ALBUMIN 1.4 g/dl (3.4-5.0); BILIRUBIN,DIRECT 0.1 mg/dL (0.0-0.2); BILIRUBIN,TOTAL 0.3 mg/dL (0.2-1); BLOOD UREA NITROGEN 19.1 mg/dL (7-18); CALCIUM 8.6 mg/dL (8.5-10.1); MAGNESIUM 1.9 mg/dL (1.8-2.4); POTASSIUM 4.1 mmol/L (3.5-5.1); TOT PROT 6.5 g/dl (6.4-8.2)
[2019-05-11] MEDS ORDERED: BORTEZOMIB (VELCADE) 2.5 MG/ML SUB-Q INJECTION SQ ONE (10:30)
[2019-05-11] MEDS ORDERED: ONDANSETRON 4 MG TABLET PO ONE (10:48)
[2019-05-11 11:41] VITALS: BP 116/70; PULSE 96; TEMP 98.9
== END 2019-05-11 12:00 | disposition home or self-care (01) ==
LOC: JONCCHEMO 06:47 → J7W 10:35 → JONCCHEMO 12:00
PROVIDERS: ATTEND Internal Medicine Hematology & Oncology
DX: Z51.11 Encounter for antineoplastic chemotherapy (principal); C90.00 Multiple myeloma not having achieved remission
CPT/HCPCS: 36415; 80048; 80076; 83735; 85025; J9041

== ENCOUNTER 2019-05-18 07:20 | Day surgery (SDC) | payer OTHER ==
[2019-05-18] MEDS ORDERED: BORTEZOMIB (VELCADE) 2.5 MG/ML SUB-Q INJECTION SQ ONE (10:00)
[2019-05-18] MEDS ORDERED: DEXAMETHASONE 4 MG TABLET (FP) PO ONE (10:00)
[2019-05-18 11:12] LABS: BASO % 1.1 % (0-2.0); HEMATOCRIT 29.7 % (32.4-45.2); LYMPH % 22.9 % (8-40); MCH 32.9 pg (25.7-33.7); MCHC 33.5 g/dl (32.0-36.0); MEAN CELL VOLUME 98.2 fl (80-96); MEAN PLT VOLUME 9.2 fl (7.5-11.1); MONO % 7.8 % (3.8-10.2); NEUT % 68.2 % (42.8-82.8); PLATELET COUNT 169 K/MM3 (134-434); RBC 3.03 M/mm3 (3.60-5.2); RDW 18.7 % (11.6-15.6); WHITE BLOOD COUNT 5.2 K/mm3 (4.0-10.0)
[2019-05-18 11:35] LABS: ALBUMIN 1.5 g/dl (3.4-5.0); BILIRUBIN,DIRECT 0.1 mg/dL (0.0-0.2); BILIRUBIN,TOTAL 0.2 mg/dL (0.2-1); BLOOD UREA NITROGEN 17.7 mg/dL (7-18); CALCIUM 8.8 mg/dL (8.5-10.1); MAGNESIUM 2.2 mg/dL (1.8-2.4); POTASSIUM 3.8 mmol/L (3.5-5.1); TOT PROT 6.4 g/dl (6.4-8.2); URIC ACID 3.2 mg/dL (2.6-7.2)
[2019-05-18] MEDS ORDERED: FUROSEMIDE 40 MG/4 ML INJECTABLE VIAL IVPUSH ONE (11:40)
[2019-05-18 14:32] VITALS: BP 137/74; PULSE 99; TEMP 99.4
== END 2019-05-18 13:35 | disposition home or self-care (01) ==
LOC: JONCCHEMO 07:20 → J7W 11:09 → JONCCHEMO 13:35
PROVIDERS: ATTEND Internal Medicine Hematology & Oncology
PROC: 3E033GC Introduction of Other Therapeutic Substance into Peripheral Vein, Percutaneous Approach (ICD-10-PCS; principal; 2019-05-18)
PROC: 3E01305 Introduction of Other Antineoplastic into Subcutaneous Tissue, Percutaneous Approach (ICD-10-PCS; 2019-05-18)
DX: Z51.11 Encounter for antineoplastic chemotherapy (principal); C90.00 Multiple myeloma not having achieved remission
CPT/HCPCS: 36415; 80048; 80076; 83615; 83735; 84550; 85025; 96365; 96401; 96417; J9041

== ENCOUNTER 2019-05-25 07:12 | Day surgery (SDC) | payer OTHER | END 2019-05-25 12:25 | disposition home or self-care (01) | LOC: JONCCHEMO 07:12 → J7W 11:04 → JONCCHEMO 12:25 ==

== ENCOUNTER 2019-06-01 05:48 | Day surgery (SDC) | payer OTHER ==
[2019-06-01 09:39] LABS: BASO % 0.5 % (0-2.0); HEMATOCRIT 29.5 % (32.4-45.2); HEMOGLOBIN 9.9 GM/dL (10.7-15.3); LYMPH % 25.1 % (8-40); MCH 33.4 pg (25.7-33.7); MCHC 33.4 g/dl (32.0-36.0); MEAN PLT VOLUME 9.2 fl (7.5-11.1); MONO % 9.3 % (3.8-10.2); NEUT % 65.1 % (42.8-82.8); PLATELET COUNT 175 K/MM3 (134-434); RBC 2.95 M/mm3 (3.60-5.2); RDW 18.4 % (11.6-15.6)
[2019-06-01] MEDS ORDERED: DEXAMETHASONE 4 MG TABLET (FP) PO ONE (10:00)
[2019-06-01] MEDS ORDERED: BORTEZOMIB (VELCADE) 2.5 MG/ML SUB-Q INJECTION SQ ONE (10:00)
[2019-06-01 10:05] LABS: ALBUMIN 1.4 g/dl (3.4-5.0); BILIRUBIN,DIRECT 0.1 mg/dL (0.0-0.2); BILIRUBIN,TOTAL 0.3 mg/dL (0.2-1); BLOOD UREA NITROGEN 17.1 mg/dL (7-18); CALCIUM 9.2 mg/dL (8.5-10.1); CREATININE 1.3 mg/dL (0.55-1.3); MAGNESIUM 2.2 mg/dL (1.8-2.4); POTASSIUM 3.6 mmol/L (3.5-5.1); TOT PROT 6.9 g/dl (6.4-8.2)
[2019-06-01 14:40] VITALS: PULSE 117; TEMP 98
[2019-06-01 14:41] VITALS: BP 122/76
== END 2019-06-01 11:20 | disposition home or self-care (01) ==
LOC: JONCCHEMO 05:48 → J7W 10:27 → JONCCHEMO 11:20
PROVIDERS: ATTEND Internal Medicine Hematology & Oncology
DX: Z51.11 Encounter for antineoplastic chemotherapy (principal); C90.00 Multiple myeloma not having achieved remission
CPT/HCPCS: 36415; 80048; 80076; 83735; 85025; J9041

== ENCOUNTER 2019-06-08 07:14 | Day surgery (SDC) | payer OTHER ==
[2019-06-08] MEDS ORDERED: DEXAMETHASONE 4 MG TABLET (FP) PO ONE (10:00)
[2019-06-08] MEDS ORDERED: BORTEZOMIB (VELCADE) 2.5 MG/ML SUB-Q INJECTION SQ ONE (10:00)
[2019-06-08 10:19] LABS: BASO % 0.5 % (0-2.0); HEMATOCRIT 28.6 % (32.4-45.2); HEMOGLOBIN 9.4 GM/dL (10.7-15.3); LYMPH % 24.4 % (8-40); MCH 33.6 pg (25.7-33.7); MCHC 33.1 g/dl (32.0-36.0); MEAN CELL VOLUME 101.6 fl (80-96); MEAN PLT VOLUME 10.1 fl (7.5-11.1); MONO % 7.5 % (3.8-10.2); NEUT % 67.6 % (42.8-82.8); PLATELET COUNT 170 K/MM3 (134-434); RBC 2.81 M/mm3 (3.60-5.2); RDW 18.7 % (11.6-15.6); WHITE BLOOD COUNT 4.9 K/mm3 (4.0-10.0)
[2019-06-08 10:51] LABS: ALBUMIN 1.6 g/dl (3.4-5.0); BILIRUBIN,DIRECT 0.1 mg/dL (0.0-0.2); BILIRUBIN,TOTAL 0.2 mg/dL (0.2-1); BLOOD UREA NITROGEN 16.5 mg/dL (7-18); CALCIUM 8.8 mg/dL (8.5-10.1); CREATININE 1.2 mg/dL (0.55-1.3); MAGNESIUM 2.3 mg/dL (1.8-2.4); POTASSIUM 3.7 mmol/L (3.5-5.1); TOT PROT 7.4 g/dl (6.4-8.2)
[2019-06-08] MEDS ORDERED: CYANOCOBALAMIN (VITAMIN B-12) 1000 MCG/1 ML VIAL IM ONE (11:41)
[2019-06-08 12:05] LABS: URINE APPEARANCE CLOUDY; URINE BILIRUBIN NEGATIVE (NEGATIVE); URINE COLOR DK YELLOW; URINE GLUCOSE (UA) NEGATIVE (NEGATIVE); URINE KETONE TRACE (NEGATIVE)
[2019-06-08 12:07] LABS: HYALINE CASTS 231.25 /lpf (0-8); URINE BACTERIA 4.4 /hpf (NEGATIVE); URINE LEUK ESTERASE NEGATIVE (NEGATIVE); URINE NITRITE NEGATIVE (NEGATIVE); URINE PROTEIN 4+ (NEGATIVE); URINE RBC 8.2 /hpf (0-4); URINE WBC 2.3 /hpf (0-5); YEAST NONE SEEN (NEGATIVE)
[2019-06-08 15:46] VITALS: BP 127/73; PULSE 103; TEMP 98.2
== END 2019-06-08 10:15 | disposition home or self-care (01) ==
LOC: JONCCHEMO 07:14 → J7W 11:16 → JERBED 11:16
PROVIDERS: ATTEND Internal Medicine Hematology & Oncology
PROC: 3E013GC Introduction of Other Therapeutic Substance into Subcutaneous Tissue, Percutaneous Approach (ICD-10-PCS; principal; 2019-06-08)
PROC: 3E01305 Introduction of Other Antineoplastic into Subcutaneous Tissue, Percutaneous Approach (ICD-10-PCS; 2019-06-08)
DX: Z51.11 Encounter for antineoplastic chemotherapy (principal); C90.00 Multiple myeloma not having achieved remission
CPT/HCPCS: 36415; 80048; 80076; 81003; 82784; 83615; 83735; 83883; 85025; J9041

== ENCOUNTER 2019-06-15 07:07 | Day surgery (SDC) | payer OTHER ==
[2019-06-15] MEDS ORDERED: DEXAMETHASONE 4 MG TABLET (FP) PO ONE (10:00)
[2019-06-15] MEDS ORDERED: BORTEZOMIB (VELCADE) 2.5 MG/ML SUB-Q INJECTION SQ ONE (10:00)
[2019-06-15 10:49] LABS: BASO % 0.4 % (0-2.0); HEMATOCRIT 31.5 % (32.4-45.2); HEMOGLOBIN 10.3 GM/dL (10.7-15.3); LYMPH % 27.5 % (8-40); MCH 33.1 pg (25.7-33.7); MCHC 32.7 g/dl (32.0-36.0); MEAN CELL VOLUME 101.2 fl (80-96); MONO % 10.8 % (3.8-10.2); NEUT % 61.3 % (42.8-82.8); PLATELET COUNT 162 K/MM3 (134-434); RBC 3.12 M/mm3 (3.60-5.2); RDW 18.4 % (11.6-15.6); WHITE BLOOD COUNT 4.5 K/mm3 (4.0-10.0)
[2019-06-15 11:22] LABS: ALBUMIN 1.6 g/dl (3.4-5.0); BILIRUBIN,DIRECT 0.1 mg/dL (0.0-0.2); BILIRUBIN,TOTAL 0.3 mg/dL (0.2-1); BLOOD UREA NITROGEN 17.5 mg/dL (7-18); CALCIUM 9.1 mg/dL (8.5-10.1); CREATININE 1.2 mg/dL (0.55-1.3); MAGNESIUM 2.4 mg/dL (1.8-2.4); POTASSIUM 4.7 mmol/L (3.5-5.1); TOT PROT 7.5 g/dl (6.4-8.2); URIC ACID 3.2 mg/dL (2.6-7.2)
[2019-06-15 15:53] VITALS: BP 103/62; PULSE 92; TEMP 97.9
== END 2019-06-15 12:45 | disposition home or self-care (01) ==
LOC: JONCCHEMO 07:07 → J7W 11:32 → JONCCHEMO 12:45
PROVIDERS: ATTEND Internal Medicine Hematology & Oncology
DX: Z51.11 Encounter for antineoplastic chemotherapy (principal); C90.00 Multiple myeloma not having achieved remission
CPT/HCPCS: 36415; 80048; 80076; 83615; 83735; 84550; 85025; 96401; J9041

== ENCOUNTER 2019-06-22 06:49 | Day surgery (SDC) | payer OTHER ==
[2019-06-22] MEDS ORDERED: BORTEZOMIB (VELCADE) 2.5 MG/ML SUB-Q INJECTION SQ ONE (10:00)
[2019-06-22] MEDS ORDERED: DEXAMETHASONE 4 MG TABLET (FP) PO ONE (10:00)
[2019-06-22 10:26] LABS: BASO % 0.3 % (0-2.0); HEMATOCRIT 29.2 % (32.4-45.2); HEMOGLOBIN 9.5 GM/dL (10.7-15.3); LYMPH % 25.3 % (8-40); MCHC 32.6 g/dl (32.0-36.0); MEAN CELL VOLUME 101.2 fl (80-96); MEAN PLT VOLUME 9.8 fl (7.5-11.1); MONO % 10.6 % (3.8-10.2); NEUT % 63.8 % (42.8-82.8); PLATELET COUNT 153 K/MM3 (134-434); RBC 2.89 M/mm3 (3.60-5.2); WHITE BLOOD COUNT 4.8 K/mm3 (4.0-10.0)
[2019-06-22 10:52] LABS: ALBUMIN 1.5 g/dl (3.4-5.0); BILIRUBIN,DIRECT 0.1 mg/dL (0.0-0.2); BILIRUBIN,TOTAL 0.3 mg/dL (0.2-1); BLOOD UREA NITROGEN 21.2 mg/dL (7-18); CALCIUM 9.3 mg/dL (8.5-10.1); CREATININE 1.1 mg/dL (0.55-1.3); MAGNESIUM 2.3 mg/dL (1.8-2.4); POTASSIUM 4.3 mmol/L (3.5-5.1); TOT PROT 7.1 g/dl (6.4-8.2)
[2019-06-22] MEDS ORDERED: ONDANSETRON 4 MG TABLET PO ONE (11:48)
[2019-06-22] MEDS ORDERED: CYCLOPHOSPHAMIDE 50 MG CAPSULE PO ONE (12:00)
[2019-06-22 16:56] VITALS: BP 103/57; PULSE 90; TEMP 98.6
== END 2019-06-22 13:10 | disposition home or self-care (01) ==
LOC: JONCCHEMO 06:49 → J7W 11:38 → JONCCHEMO 13:10
PROVIDERS: ATTEND Internal Medicine Hematology & Oncology
DX: Z51.11 Encounter for antineoplastic chemotherapy (principal); C90.00 Multiple myeloma not having achieved remission
CPT/HCPCS: 36415; 80048; 80076; 83735; 85025; 96401; J9041

== ENCOUNTER 2019-06-29 07:07 | Day surgery (SDC) | payer OTHER ==
[2019-06-29] MEDS ORDERED: DEXAMETHASONE 4 MG TABLET (FP) PO ONE (10:00)
[2019-06-29] MEDS ORDERED: CYCLOPHOSPHAMIDE 50 MG CAPSULE PO ONE (10:00)
[2019-06-29 10:05] LABS: BASO % 0.6 % (0-2.0); HEMATOCRIT 25.2 % (32.4-45.2); HEMOGLOBIN 8.3 GM/dL (10.7-15.3); LYMPH % 25.6 % (8-40); MCH 33.3 pg (25.7-33.7); MCHC 33.1 g/dl (32.0-36.0); MEAN CELL VOLUME 100.6 fl (80-96); MEAN PLT VOLUME 9.3 fl (7.5-11.1); MONO % 9.8 % (3.8-10.2); PLATELET COUNT 182 K/MM3 (134-434); RBC 2.51 M/mm3 (3.60-5.2); RDW 17.4 % (11.6-15.6); WHITE BLOOD COUNT 4.9 K/mm3 (4.0-10.0)
[2019-06-29] MEDS ORDERED: BORTEZOMIB (VELCADE) 2.5 MG/ML SUB-Q INJECTION SQ ONE (10:10)
[2019-06-29 10:34] LABS: ALBUMIN 1.5 g/dl (3.4-5.0); BILIRUBIN,DIRECT 0.1 mg/dL (0.0-0.2); BILIRUBIN,TOTAL 0.3 mg/dL (0.2-1); BLOOD UREA NITROGEN 19.1 mg/dL (7-18); CALCIUM 8.8 mg/dL (8.5-10.1); CREATININE 1.2 mg/dL (0.55-1.3); MAGNESIUM 2.1 mg/dL (1.8-2.4); TOT PROT 6.8 g/dl (6.4-8.2)
[2019-06-29 13:17] VITALS: BP 112/65; PULSE 104; TEMP 98.9
== END 2019-06-29 12:15 | disposition home or self-care (01) ==
LOC: JONCCHEMO 07:07 → J7W 11:27 → JONCCHEMO 12:15
PROVIDERS: ATTEND Internal Medicine Hematology & Oncology
DX: Z51.11 Encounter for antineoplastic chemotherapy (principal); C90.00 Multiple myeloma not having achieved remission
CPT/HCPCS: 36415; 80048; 80076; 83615; 83735; 84550; 85025; 96401; J9041

== ENCOUNTER 2019-07-06 08:27 | Day surgery (SDC) | payer OTHER ==
[2019-07-06] MEDS ORDERED: CYCLOPHOSPHAMIDE 50 MG CAPSULE PO ONE (10:00)
[2019-07-06] MEDS ORDERED: BORTEZOMIB (VELCADE) 2.5 MG/ML SUB-Q INJECTION SQ ONE (10:00)
[2019-07-06] MEDS ORDERED: DEXAMETHASONE 4 MG TABLET (FP) PO ONE (10:00)
[2019-07-06 10:31] LABS: BASO % 0.2 % (0-2.0); HEMATOCRIT 28.9 % (32.4-45.2); HEMOGLOBIN 9.5 GM/dL (10.7-15.3); LYMPH % 29.3 % (8-40); MCH 33.5 pg (25.7-33.7); MCHC 32.9 g/dl (32.0-36.0); MEAN CELL VOLUME 101.6 fl (80-96); MONO % 10.9 % (3.8-10.2); NEUT % 59.6 % (42.8-82.8); PLATELET COUNT 155 K/MM3 (134-434); RBC 2.84 M/mm3 (3.60-5.2); RDW 17.4 % (11.6-15.6); WHITE BLOOD COUNT 4.6 K/mm3 (4.0-10.0)
[2019-07-06 10:58] LABS: ALBUMIN 1.6 g/dl (3.4-5.0); BILIRUBIN,DIRECT 0.1 mg/dL (0.0-0.2); BILIRUBIN,TOTAL 0.3 mg/dL (0.2-1); BLOOD UREA NITROGEN 20.5 mg/dL (7-18); CALCIUM 9.2 mg/dL (8.5-10.1); CREATININE 1.2 mg/dL (0.55-1.3); MAGNESIUM 2.3 mg/dL (1.8-2.4); POTASSIUM 4.4 mmol/L (3.5-5.1); TOT PROT 7.1 g/dl (6.4-8.2)
[2019-07-06 17:48] VITALS: BP 122/61; PULSE 94; TEMP 98.4
== END 2019-07-06 12:30 | disposition home or self-care (01) ==
LOC: JONCCHEMO 08:27 → J7W 11:41 → JONCCHEMO 12:30
PROVIDERS: ATTEND Internal Medicine Hematology & Oncology
DX: Z51.11 Encounter for antineoplastic chemotherapy (principal); C90.00 Multiple myeloma not having achieved remission
CPT/HCPCS: 36415; 80048; 80076; 83615; 83735; 84550; 85025; 96401; J9041

== ENCOUNTER 2019-07-13 05:37 | Day surgery (SDC) | payer OTHER ==
[2019-07-13] MEDS ORDERED: BORTEZOMIB (VELCADE) 2.5 MG/ML SUB-Q INJECTION SQ ONE (10:00)
[2019-07-13] MEDS ORDERED: DEXAMETHASONE 4 MG TABLET (FP) PO ONE (10:00)
[2019-07-13 10:18] LABS: BASO % 0.2 % (0-2.0); HEMATOCRIT 27.8 % (32.4-45.2); LYMPH % 28.4 % (8-40); MCH 33.3 pg (25.7-33.7); MCHC 32.5 g/dl (32.0-36.0); MEAN CELL VOLUME 102.3 fl (80-96); MONO % 10.1 % (3.8-10.2); NEUT % 61.3 % (42.8-82.8); PLATELET COUNT 154 K/MM3 (134-434); RBC 2.72 M/mm3 (3.60-5.2); RDW 17.8 % (11.6-15.6); WHITE BLOOD COUNT 3.8 K/mm3 (4.0-10.0)
[2019-07-13] MEDS ORDERED: DEXTROSE 5%-0.45% SALINE 1,000 ML IV SCH (10:30)
[2019-07-13 10:49] LABS: ALBUMIN 1.6 g/dl (3.4-5.0); BILIRUBIN,DIRECT 0.1 mg/dL (0.0-0.2); BILIRUBIN,TOTAL 0.2 mg/dL (0.2-1); BLOOD UREA NITROGEN 25.8 mg/dL (7-18); CALCIUM 8.6 mg/dL (8.5-10.1); CREATININE 1.4 mg/dL (0.55-1.3); MAGNESIUM 2.3 mg/dL (1.8-2.4); POTASSIUM 4.3 mmol/L (3.5-5.1); TOT PROT 6.8 g/dl (6.4-8.2); URIC ACID 2.8 mg/dL (2.6-7.2)
[2019-07-13 11:36] LABS: EPI CELLS 2.6 /HPF (0-5/HPF); HYALINE CASTS 9 /lpf (0-8); URINE APPEARANCE CLEAR; URINE BILIRUBIN NEGATIVE (NEGATIVE); URINE COLOR YELLOW; URINE GLUCOSE (UA) NEGATIVE (NEGATIVE); URINE KETONE NEGATIVE (NEGATIVE); URINE LEUK ESTERASE NEGATIVE (NEGATIVE); URINE NITRITE NEGATIVE (NEGATIVE); URINE PROTEIN 4+ (NEGATIVE); URINE RBC 6 /hpf (0-4); URINE WBC 1 /hpf (0-5)
[2019-07-13 12:18] LABS: YEAST NEGATIVE (NEGATIVE)
[2019-07-13 13:46] VITALS: BP 91/55; PULSE 84; TEMP 98.7
== END 2019-07-13 13:30 | disposition home or self-care (01) ==
LOC: JONCCHEMO 05:37 → J7W 10:25 → JONCCHEMO 13:30
PROVIDERS: ATTEND Internal Medicine Hematology & Oncology
PROC: 3E01305 Introduction of Other Antineoplastic into Subcutaneous Tissue, Percutaneous Approach (ICD-10-PCS; principal; 2019-07-13)
PROC: 3E0337Z Introduction of Electrolytic and Water Balance Substance into Peripheral Vein, Percutaneous Approach (ICD-10-PCS; 2019-07-13)
DX: Z51.11 Encounter for antineoplastic chemotherapy (principal); C90.00 Multiple myeloma not having achieved remission
CPT/HCPCS: 36415; 80048; 80076; 81003; 83615; 83735; 84550; 85025; 87086; 96360; 96361; 96401; J9041

== ENCOUNTER 2019-07-20 05:38 | Day surgery (SDC) | payer OTHER ==
[2019-07-20] MEDS ORDERED: CYCLOPHOSPHAMIDE 50 MG CAPSULE PO ONE (10:00)
[2019-07-20] MEDS ORDERED: DEXAMETHASONE 4 MG TABLET (FP) PO ONE (10:00)
[2019-07-20] MEDS ORDERED: BORTEZOMIB (VELCADE) 2.5 MG/ML SUB-Q INJECTION SQ ONE (10:00)
[2019-07-20 10:09] LABS: BASO % 0.6 % (0-2.0); HEMATOCRIT 25.5 % (32.4-45.2); HEMOGLOBIN 8.3 GM/dL (10.7-15.3); LYMPH % 26.1 % (8-40); MCH 33.4 pg (25.7-33.7); MCHC 32.5 g/dl (32.0-36.0); MEAN CELL VOLUME 102.8 fl (80-96); MEAN PLT VOLUME 10.3 fl (7.5-11.1); MONO % 10.8 % (3.8-10.2); NEUT % 62.5 % (42.8-82.8); PLATELET COUNT 132 K/MM3 (134-434); RBC 2.48 M/mm3 (3.60-5.2); WHITE BLOOD COUNT 3.6 K/mm3 (4.0-10.0)
[2019-07-20 10:34] LABS: ALBUMIN 1.6 g/dl (3.4-5.0); BILIRUBIN,DIRECT 0.1 mg/dL (0.0-0.2); BILIRUBIN,TOTAL 0.3 mg/dL (0.2-1); BLOOD UREA NITROGEN 28.2 mg/dL (7-18); CALCIUM 8.9 mg/dL (8.5-10.1); CREATININE 1.4 mg/dL (0.55-1.3); MAGNESIUM 2.2 mg/dL (1.8-2.4); POTASSIUM 4.4 mmol/L (3.5-5.1); TOT PROT 6.8 g/dl (6.4-8.2); URIC ACID 2.9 mg/dL (2.6-7.2)
[2019-07-20 17:17] VITALS: BP 103/57; PULSE 94; TEMP 98.8
== END 2019-07-20 13:00 | disposition home or self-care (01) ==
LOC: JONCCHEMO 05:38 → J7W 11:26 → JONCCHEMO 13:00
PROVIDERS: ATTEND Internal Medicine Hematology & Oncology
DX: Z51.11 Encounter for antineoplastic chemotherapy (principal); C90.00 Multiple myeloma not having achieved remission
CPT/HCPCS: 36415; 80048; 80076; 83615; 83735; 84550; 85025; 96401; J9041

== ENCOUNTER 2019-07-27 05:41 | Day surgery (SDC) | payer OTHER ==
[2019-07-27] MEDS ORDERED: DEXAMETHASONE 4 MG TABLET (FP) PO ONE (09:00)
[2019-07-27 09:59] LABS: HEMOGLOBIN 9.3 GM/dL (10.7-15.3); MCH 33.7 pg (25.7-33.7); MCHC 32.7 g/dl (32.0-36.0); MONO % 12.8 % (3.8-10.2)
[2019-07-27] MEDS ORDERED: CYCLOPHOSPHAMIDE 50 MG CAPSULE PO ONE (10:00)
[2019-07-27] MEDS ORDERED: BORTEZOMIB (VELCADE) 2.5 MG/ML SUB-Q INJECTION SQ ONE (10:00)
[2019-07-27 10:08] LABS: BASO % 0.3 % (0-2.0); HEMATOCRIT 28.4 % (32.4-45.2); LYMPH % 21.3 % (8-40); MEAN CELL VOLUME 102.9 fl (80-96); NEUT % 65.6 % (42.8-82.8); PLATELET COUNT 143 K/MM3 (134-434); RBC 2.76 M/mm3 (3.60-5.2); RDW 16.4 % (11.6-15.6); WHITE BLOOD COUNT 3.9 K/mm3 (4.0-10.0)
[2019-07-27 10:31] LABS: ALBUMIN 1.6 g/dl (3.4-5.0); BILIRUBIN,DIRECT 0.1 mg/dL (0.0-0.2); BILIRUBIN,TOTAL 0.3 mg/dL (0.2-1); BLOOD UREA NITROGEN 24.4 mg/dL (7-18); CALCIUM 8.8 mg/dL (8.5-10.1); CREATININE 1.3 mg/dL (0.55-1.3); MAGNESIUM 2.2 mg/dL (1.8-2.4); POTASSIUM 4.3 mmol/L (3.5-5.1); TOT PROT 7.1 g/dl (6.4-8.2); URIC ACID 3.1 mg/dL (2.6-7.2)
[2019-07-27] MEDS ORDERED: SODIUM CHLORIDE 500 ML IV ONE (12:15)
[2019-07-27 14:42] VITALS: BP 99/94; PULSE 85; TEMP 98.3
== END 2019-07-27 14:00 | disposition home or self-care (01) ==
LOC: JONCCHEMO 05:41 → J7W 11:44 → JONCCHEMO 14:00
PROVIDERS: ATTEND Internal Medicine Hematology & Oncology
DX: Z51.11 Encounter for antineoplastic chemotherapy (principal); C90.00 Multiple myeloma not having achieved remission
CPT/HCPCS: 36415; 80048; 80076; 83615; 83735; 84550; 85025; 96401; J9041

== ENCOUNTER 2019-08-03 05:45 | Day surgery (SDC) | payer OTHER ==
[2019-08-03 11:08] LABS: BASO % 0.2 % (0-2.0); EOS % 0.1 % (0-4.5); HEMATOCRIT 26.3 % (32.4-45.2); HEMOGLOBIN 8.8 GM/dL (10.7-15.3); LYMPH % 16.6 % (8-40); MCH 34.1 pg (25.7-33.7); MCHC 33.4 g/dl (32.0-36.0); MEAN CELL VOLUME 102.2 fl (80-96); NEUT % 69.1 % (42.8-82.8); PLATELET COUNT 131 K/MM3 (134-434); RBC 2.57 M/mm3 (3.60-5.2); RDW 16.8 % (11.6-15.6)
[2019-08-03] MEDS ORDERED: CYCLOPHOSPHAMIDE 50 MG CAPSULE PO ONE ×2 (11:30→16:45)
[2019-08-03] MEDS ORDERED: BORTEZOMIB (VELCADE) 2.5 MG/ML SUB-Q INJECTION SQ ONE ×2 (11:30→16:45)
[2019-08-03] MEDS ORDERED: DEXAMETHASONE 4 MG TABLET (FP) PO ONE ×2 (11:30→16:45)
[2019-08-03 11:40] LABS: ALBUMIN 1.6 g/dl (3.4-5.0); BILIRUBIN,TOTAL 0.4 mg/dL (0.2-1); BLOOD UREA NITROGEN 30.1 mg/dL (7-18); CALCIUM 8.8 mg/dL (8.5-10.1); CREATININE 1.4 mg/dL (0.55-1.3); POTASSIUM 4.7 mmol/L (3.5-5.1)
[2019-08-03 17:02] VITALS: BP 140/72; PULSE 80; TEMP 97.9
[2019-08-04 17:07] LABS: FREE KAPPA,SERUM 12.8 mg/L (3.3-19.4)
== END 2019-08-03 11:40 | disposition home or self-care (01) ==
LOC: JONCCHEMO 05:45 → J7W 10:18 → JONCCHEMO 11:40
PROVIDERS: ATTEND Internal Medicine Hematology & Oncology
DX: Z51.11 Encounter for antineoplastic chemotherapy (principal); C90.00 Multiple myeloma not having achieved remission
CPT/HCPCS: 36415; 80053; 83540; 83550; 83883; 85025; 96401; J9041

== ENCOUNTER 2019-08-10 07:10 | Day surgery (SDC) | payer OTHER ==
[2019-08-10] MEDS ORDERED: DEXAMETHASONE 4 MG TABLET (FP) PO ONE (09:30)
[2019-08-10] MEDS ORDERED: BORTEZOMIB (VELCADE) 2.5 MG/ML SUB-Q INJECTION SQ ONE (09:30)
[2019-08-10 10:59] LABS: BASO % 0.3 % (0-2.0); EOS % 0.1 % (0-4.5); HEMATOCRIT 27.9 % (32.4-45.2); HEMOGLOBIN 9.1 GM/dL (10.7-15.3); LYMPH % 10.3 % (8-40); MCH 33.9 pg (25.7-33.7); MCHC 32.7 g/dl (32.0-36.0); MEAN CELL VOLUME 103.6 fl (80-96); MEAN PLT VOLUME 10.2 fl (7.5-11.1); MONO % 13.7 % (3.8-10.2); NEUT % 75.6 % (42.8-82.8); PLATELET COUNT 144 K/MM3 (134-434); RDW 16.7 % (11.6-15.6); WHITE BLOOD COUNT 3.5 K/mm3 (4.0-10.0)
[2019-08-10 11:24] LABS: ALBUMIN 1.6 g/dl (3.4-5.0); BILIRUBIN,TOTAL 0.4 mg/dL (0.2-1); BLOOD UREA NITROGEN 33.7 mg/dL (7-18); CALCIUM 8.7 mg/dL (8.5-10.1); CREATININE 1.2 mg/dL (0.55-1.3); MAGNESIUM 2.3 mg/dL (1.8-2.4); POTASSIUM 5.2 mmol/L (3.5-5.1); TOT PROT 7.2 g/dl (6.4-8.2)
[2019-08-10 17:35] VITALS: BP 116/64; PULSE 93; TEMP 97.9
== END 2019-08-10 13:00 | disposition home or self-care (01) ==
LOC: JONCCHEMO 07:10 → J7W 12:50 → JONCCHEMO 13:00
PROVIDERS: ATTEND Internal Medicine Hematology & Oncology
DX: Z51.11 Encounter for antineoplastic chemotherapy (principal); C90.00 Multiple myeloma not having achieved remission
CPT/HCPCS: 36415; 80053; 83735; 85025; 96401; J9041

== ENCOUNTER 2019-08-17 07:08 | Day surgery (SDC) | payer OTHER ==
[2019-08-17] MEDS ORDERED: DEXAMETHASONE 4 MG TABLET (FP) PO ONE (10:00)
[2019-08-17] MEDS ORDERED: CYCLOPHOSPHAMIDE 50 MG CAPSULE PO ONE (10:00)
[2019-08-17] MEDS ORDERED: BORTEZOMIB (VELCADE) 2.5 MG/ML SUB-Q INJECTION SQ ONE ×2 (10:00→12:00)
[2019-08-17 10:18] LABS: BASO % 0.6 % (0-2.0); EOS % 0.2 % (0-4.5); HEMOGLOBIN 9.6 GM/dL (10.7-15.3); LYMPH % 11.2 % (8-40); MCH 33.6 pg (25.7-33.7); MCHC 32.9 g/dl (32.0-36.0); MEAN PLT VOLUME 9.8 fl (7.5-11.1); PLATELET COUNT 154 K/MM3 (134-434); RBC 2.85 M/mm3 (3.60-5.2); RDW 15.9 % (11.6-15.6); WHITE BLOOD COUNT 3.9 K/mm3 (4.0-10.0)
[2019-08-17 10:56] LABS: ALBUMIN 1.4 g/dl (3.4-5.0); BILIRUBIN,TOTAL 0.7 mg/dL (0.2-1); BLOOD UREA NITROGEN 26.2 mg/dL (7-18); CALCIUM 8.4 mg/dL (8.5-10.1); CREATININE 1.2 mg/dL (0.55-1.3); MAGNESIUM 2.2 mg/dL (1.8-2.4); POTASSIUM 4.9 mmol/L (3.5-5.1); TOT PROT 6.9 g/dl (6.4-8.2)
[2019-08-17 13:44] VITALS: BP 99/57; PULSE 78; TEMP 98.7
== END 2019-08-17 12:00 | disposition home or self-care (01) ==
LOC: JONCCHEMO 07:08 → J7W 11:24 → JONCCHEMO 12:00
PROVIDERS: ATTEND Internal Medicine Hematology & Oncology
DX: Z51.11 Encounter for antineoplastic chemotherapy (principal); C90.00 Multiple myeloma not having achieved remission
CPT/HCPCS: 36415; 80053; 83735; 85025; 96401; J9041

== ENCOUNTER 2019-08-31 05:30 | Day surgery (SDC) | payer OTHER ==
[2019-08-31 09:39] LABS: BASO % 0.8 % (0-2.0); EOS % 0.5 % (0-4.5); HEMATOCRIT 31.2 % (32.4-45.2); HEMOGLOBIN 10.2 GM/dL (10.7-15.3); LYMPH % 17.5 % (8-40); MCH 32.9 pg (25.7-33.7); MCHC 32.9 g/dl (32.0-36.0); MEAN PLT VOLUME 8.2 fl (7.5-11.1); MONO % 6.8 % (3.8-10.2); NEUT % 74.4 % (42.8-82.8); PLATELET COUNT 260 K/MM3 (134-434); RBC 3.12 M/mm3 (3.60-5.2); RDW 16.1 % (11.6-15.6); WHITE BLOOD COUNT 3.3 K/mm3 (4.0-10.0)
[2019-08-31] MEDS ORDERED: DEXAMETHASONE 4 MG TABLET (FP) PO ONE (10:00)
[2019-08-31] MEDS ORDERED: CYCLOPHOSPHAMIDE 50 MG CAPSULE PO ONE (10:00)
[2019-08-31] MEDS ORDERED: BORTEZOMIB (VELCADE) 2.5 MG/ML SUB-Q INJECTION SQ ONE (10:00)
[2019-08-31 10:05] LABS: ALBUMIN 1.2 g/dl (3.4-5.0); BILIRUBIN,TOTAL 0.4 mg/dL (0.2-1); CALCIUM 8.5 mg/dL (8.5-10.1); CREATININE 1.1 mg/dL (0.55-1.3); MAGNESIUM 2.2 mg/dL (1.8-2.4); POTASSIUM 4.2 mmol/L (3.5-5.1); TOT PROT 7.2 g/dl (6.4-8.2)
[2019-08-31] MEDS ORDERED: SODIUM CHLORIDE 500 ML IV STA (10:15)
[2019-08-31 15:38] VITALS: BP 86/51; PULSE 97; TEMP 98
== END 2019-08-31 13:00 | disposition home or self-care (01) ==
LOC: JONCCHEMO 05:30 → J7W 10:38 → JONCCHEMO 13:00
PROVIDERS: ATTEND Internal Medicine Hematology & Oncology
DX: Z51.11 Encounter for antineoplastic chemotherapy (principal)
CPT/HCPCS: 36415; 80053; 83735; 85025; 96379; 96401; J9041

== ENCOUNTER 2019-09-07 07:07 | Day surgery (SDC) | payer OTHER ==
[2019-09-07 09:36] LABS: BASO % 0.7 % (0-2.0); EOS % 0.2 % (0-4.5); HEMATOCRIT 30.3 % (32.4-45.2); LYMPH % 19.5 % (8-40); MCH 33.3 pg (25.7-33.7); MCHC 32.9 g/dl (32.0-36.0); MEAN PLT VOLUME 9.2 fl (7.5-11.1); MONO % 7.7 % (3.8-10.2); NEUT % 71.9 % (42.8-82.8); PLATELET COUNT 184 K/MM3 (134-434); RDW 16.2 % (11.6-15.6); WHITE BLOOD COUNT 3.1 K/mm3 (4.0-10.0)
[2019-09-07] MEDS ORDERED: ONDANSETRON 8 MG TABLET (FP) PO ONE (09:46)
[2019-09-07] MEDS ORDERED: SODIUM CHLORIDE 1,000 ML IV ONE (10:00)
[2019-09-07] MEDS ORDERED: DEXAMETHASONE 4 MG TABLET (FP) PO ONE (10:00)
[2019-09-07] MEDS ORDERED: BORTEZOMIB (VELCADE) 2.5 MG/ML SUB-Q INJECTION SQ ONE (10:00)
[2019-09-07] MEDS ORDERED: CYCLOPHOSPHAMIDE 50 MG CAPSULE PO ONE (10:00)
[2019-09-07 10:02] LABS: ALBUMIN 1.3 g/dl (3.4-5.0); BILIRUBIN,DIRECT 0.2 mg/dL (0.0-0.2); BILIRUBIN,TOTAL 0.4 mg/dL (0.2-1); BLOOD UREA NITROGEN 20.9 mg/dL (7-18); CALCIUM 8.9 mg/dL (8.5-10.1); MAGNESIUM 2.1 mg/dL (1.8-2.4); POTASSIUM 4.3 mmol/L (3.5-5.1); TOT PROT 7.1 g/dl (6.4-8.2)
[2019-09-07 16:38] VITALS: TEMP 98.1
[2019-09-07 16:42] VITALS: BP 93/56; PULSE 92
== END 2019-09-07 15:15 | disposition home or self-care (01) ==
LOC: JONCCHEMO 07:07 → J7W 09:56 → JONCCHEMO 13:15
PROVIDERS: ATTEND Internal Medicine Hematology & Oncology
PROC: 3E01305 Introduction of Other Antineoplastic into Subcutaneous Tissue, Percutaneous Approach (ICD-10-PCS; principal; 2019-09-07)
PROC: 3E0337Z Introduction of Electrolytic and Water Balance Substance into Peripheral Vein, Percutaneous Approach (ICD-10-PCS; 2019-09-07)
DX: Z51.11 Encounter for antineoplastic chemotherapy (principal); C90.00 Multiple myeloma not having achieved remission
CPT/HCPCS: 36415; 80048; 80076; 83735; 85025; 87040; 96360; 96361; 96401; J7030; J9041

== ENCOUNTER 2019-09-14 05:46 | Day surgery (SDC) | payer OTHER ==
[2019-09-14] MEDS ORDERED: DEXAMETHASONE 4 MG TABLET (FP) PO ONE (10:00)
[2019-09-14] MEDS ORDERED: BORTEZOMIB (VELCADE) 2.5 MG/ML SUB-Q INJECTION SQ ONE (10:00)
[2019-09-14 10:19] LABS: BASO % 0.6 % (0-2.0); EOS % 0.1 % (0-4.5); HEMOGLOBIN 9.9 GM/dL (10.7-15.3); MCH 33.1 pg (25.7-33.7); MCHC 32.9 g/dl (32.0-36.0); MEAN CELL VOLUME 100.8 fl (80-96); MEAN PLT VOLUME 10.2 fl (7.5-11.1); MONO % 4.6 % (3.8-10.2); NEUT % 86.7 % (42.8-82.8); PLATELET COUNT 171 K/MM3 (134-434); RBC 2.98 M/mm3 (3.60-5.2); RDW 16.3 % (11.6-15.6); WHITE BLOOD COUNT 4.3 K/mm3 (4.0-10.0)
[2019-09-14 11:04] LABS: ALBUMIN 1.4 g/dl (3.4-5.0); BILIRUBIN,TOTAL 0.5 mg/dL (0.2-1); BLOOD UREA NITROGEN 38.3 mg/dL (7-18); CALCIUM 8.6 mg/dL (8.5-10.1); CREATININE 1.6 mg/dL (0.55-1.3); MAGNESIUM 2.2 mg/dL (1.8-2.4); POTASSIUM 4.5 mmol/L (3.5-5.1); TOT PROT 7.3 g/dl (6.4-8.2); URIC ACID 2.7 mg/dL (2.6-7.2)
[2019-09-14] MEDS ORDERED: SODIUM CHLORIDE 500 ML IV STA (12:30)
[2019-09-14 15:14] VITALS: BP 99/57; PULSE 102; TEMP 97.9
[2019-09-15 17:06] LABS: FREE KAPPA,SERUM 12.1 mg/L (3.3-19.4)
== END 2019-09-14 14:57 | disposition home or self-care (01) ==
LOC: JONCCHEMO 05:46 → J7W 10:48 → JONCCHEMO 14:57
PROVIDERS: ATTEND Internal Medicine Hematology & Oncology
DX: Z51.11 Encounter for antineoplastic chemotherapy (principal); C90.00 Multiple myeloma not having achieved remission
CPT/HCPCS: 36415; 80053; 83615; 83735; 83883; 84550; 85025; 96360; 96361; 96401; J9041

== ENCOUNTER 2019-09-19 23:07 | Inpatient (IN) | payer OTHER ==
--- NOTE | 2019-09-20 01:42 | PDOC ---
History of Present Illness - General Stated Complaint: WEAKNESS Time Seen by Provider: 09/20/19 01:41 History Source: Patient Exam Limitations: No Limitations - History of Present Illness Initial Comments: 74 year old female with PMH HTN, HLD, CAD s/p coronary artery stenting, GERD, multiple myeloma (chemo; radiation directed at abdomen), poor LV compliance on Lasix, rectal hemorrhoids presented to ED for diarrhea x2 days associated with generalized weakness, ROGERS. Pt reported she has had loose, watery diarrhea x2 days, and prior to that he had rectal bleeding x2 days (on toilet paper and mixed in stool) that self resolved. She reported she only noticed the bleeding because it was on the toilet paper, as she did not have abdominal or rectal pain. Pt reported generalized weakness and ROGERS, which prompted her to come to the ED. Pt denied nausea, vomiting, fever, abdominal pain, chest pain, increased LE swelling. She reported she believed her lower extremity swelling is actually improving. She also reported noticing a new "rash" to her right hip since last week. ROS General: admitted to generalized weakness. denied fever, chills. HEENT: denied sore throat, rhinorrhea, ear pain. Cardiovascular: denied chest pain, palpitations, syncope, diaphoresis. Respiratory: admitted to ROGERS. denied cough, sputum production, hemoptysis. Gastrointestinal: admitted to diarrhea, blood in stool. denied abdominal pain, nausea, vomiting, constipation. Genitourinary: denied dysuria, increased urinary frequency, hematuria, urinary incontinence, flank pain. Back: denied back pain. Musculoskeletal: denied joint pain, muscle pain, joint swelling. Neurological: denied headache, dizziness, numbness, tingling, weakness. Integumentary: admitted to rash. denied laceration, abrasion. Hematologic/Lymphatic: denied bruising or bleeding. PE Constitutional: Well-nourished, Well-developed, appearing stated age. HEENT: head is normocephalic, atraumatic. EOMI. PERRLA. Neck: supple. Full ROM. Cardiovascular: regular heart rhythm. no murmurs. no pericardial friction rub. Respiratory: bibasilar crackles bilaterally. Gastrointestinal: soft, nontender, edematous. normal bowel sounds. no rebound, guarding, masses. Extremities: peripheral pulses intact. 4+ pitting edema to bilateral lower extremities. Neurological: CN 2-12 grossly intact. moves all four extremities. Psych: awake, alert, oriented x3. follows commands. answers questions appropriately. Skin: stage 1 ulcer to right hip. Rectal: external hemorrhoids without thrombosis. soft stool in rectal vault. good rectal tone. no gross blood on gloved finger. Past History - Past Medical History Allergies/Adverse Reactions: Allergies Allergy/AdvReac Type Severity Reaction Status Date / Time Penicillins Allergy Severe Rash Verified 09/20/19 03:59 Home Medications: Ambulatory Orders Allopurinol [Zyloprim -] 300 mg PO DAILY #30 tablet 11/09/18 Pantoprazole Sodium [Protonix -] 40 mg PO DAILY #30 tablet.ec 11/09/18 Aspirin [ASA -] 81 mg PO DAILY 12/30/18 Clopidogrel Bisulfate [Plavix -] 75 mg PO DAILY #30 tablet 01/07/19 Valacyclovir HCl [Valtrex -] 500 mg PO DAILY #30 tablet 01/07/19 Levothyroxine [Synthroid -] 75 mcg PO DAILY@0700 01/28/19 Potassium Chloride [K-Dur -] 10 meq PO DAILY 01/28/19 Atorvastatin Ca [Lipitor] 40 mg PO HS 04/09/19 Loratadine 10 mg PO DAILY 04/09/19 Escitalopram Oxalate [Lexapro -] 10 mg PO DAILY #30 tablet 04/25/19 Losartan Potassium [Cozaar -] 25 mg PO DAILY #30 tablet 04/25/19 Furosemide [Lasix -] 20 mg PO ASDIR 07/13/19 - Immunization History Immunization Up to Date: Yes - Psycho Social/Smoking Cessation Hx Smoking History: Unknown if ever smoked Have you smoked in the past 12 months: No Number of Cigarettes Smoked Daily: 5 If you are a former smoker, when did you quit?: 1970 Cigars Per Day: 4 'Breaking Loose' booklet given: 01/29/19 Hx Alcohol Use: No Drug/Substance Use Hx: No Substance Use Type: None Hx Substance Use Treatment: No ED Treatment Course - LABORATORY CBC & Chemistry Diagram: 09/20/19 04:16 09/20/19 04:16 Medical Decision Making - Medical Decision Making 74 year old female with above PMH presented to ED for generalized weakness associated with diarrhea. Pt also reported 1 day episode of rectal bleeding x2 days ago that self resolved. Initial Vital Signs Temp Pulse Resp BP Pulse Ox 98.3 F 95 H 18 106/64 97 09/20/19 00:05 09/20/19 00:05 09/20/19 00:05 09/20/19 00:05 09/20/19 00:05 Afebrile. No tachycardia. No tachypnea. Mild hypotension. No hypoxia on room air. Labs ordered: CBC, CMP, cardiac profile, T&S, PT/PTT/INR Imaging ordered: CT abdomen/pelvis Medications ordered: none EKG performed at 0223: rate 101, regular rhythm, flipped T in aVL/V4-V6/I. 09/20/19 03:14 Stool Occult Blood Negative (NEGATIVE) 09/20/19 02:00 09/20/19 05:43 CBC WBC 4.8 K/mm3 (4.0-10.0) 09/20/19 04:16 RBC 3.11 M/mm3 (3.60-5.2) L 09/20/19 04:16 Hgb 10.0 GM/dL (10.7-15.3) L 09/20/19 04:16 Hct 31.7 % (32.4-45.2) L 09/20/19 04:16 MCV 102.0 fl (80-96) H 09/20/19 04:16 MCH 32.3 pg (25.7-33.7) 09/20/19 04:16 MCHC 31.7 g/dl (32.0-36.0) L 09/20/19 04:16 RDW 17.1 % (11.6-15.6) H 09/20/19 04:16 Plt Count 137 K/MM3 (134-434) 09/20/19 04:16 MPV 10.5 fl (7.5-11.1) 09/20/19 04:16 Absolute Neuts (auto) 4.0 K/mm3 (1.5-8.0) 09/20/19 04:16 Neutrophils % 83.7 % (42.8-82.8) H 09/20/19 04:16 Lymphocytes % 12.1 % (8-40) D 09/20/19 04:16 Monocytes % 3.8 % (3.8-10.2) 09/20/19 04:16 Eosinophils % 0.1 % (0-4.5) 09/20/19 04:16 Basophils % 0.3 % (0-2.0) 09/20/19 04:16 Nucleated RBC % 0 % (0-0) 09/20/19 04:16 No leukocytosis. Macrocytic anemia. CMP Sodium 143 mmol/L (136-145) 09/20/19 04:16 Potassium 4.4 mmol/L (3.5-5.1) 09/20/19 04:16 Chloride 113 mmol/L (98-107) H 09/20/19 04:16 Carbon Dioxide 22 mmol/L (21-32) 09/20/19 04:16 Anion Gap 8 MMOL/L (8-16) 09/20/19 04:16 BUN 45.6 mg/dL (7-18) H 09/20/19 04:16 Creatinine 1.3 mg/dL (0.55-1.3) 09/20/19 04:16 Est GFR (CKD-EPI)AfAm 46.47 09/20/19 04:16 Est GFR (CKD-EPI)NonAf 40.10 09/20/19 04:16 Random Glucose 95 mg/dL (74-106) 09/20/19 04:16 Lactic Acid 1.3 mmol/L (0.4-2.0) 09/20/19 04:16 Calcium 8.9 mg/dL (8.5-10.1) 09/20/19 04:16 Phosphorus 3.2 mg/dL (2.5-4.9) 09/20/19 04:16 Magnesium 2.4 mg/dL (1.8-2.4) 09/20/19 04:16 Total Bilirubin 0.4 mg/dL (0.2-1) 09/20/19 04:16 AST 6 U/L (15-37) L 09/20/19 04:16 ALT 12 U/L (13-61) L 09/20/19 04:16 Alkaline Phosphatase 55 U/L (45-117) 09/20/19 04:16 Creatine Kinase 72 U/L (26-192) 09/20/19 04:16 Troponin I 0.10 ng/ml (0.00-0.05) H 09/20/19 04:16 B-Natriuretic Peptide 907951.3 pg/ml (5-450) H 09/20/19 04:16 Total Protein 6.6 g/dl (6.4-8.2) 09/20/19 04:16 Albumin 1.2 g/dl (3.4-5.0) L 09/20/19 04:16 BNP elevation. No clinically significant electrolyte abnormalities. No lactic acidosis. No transaminitis. Troponin elevated, will repeat. CT report: Referring Physician: EDNA GARNER Patient Name: SHERRY SIMPSON THIS IS A PRELIMINARY REPORT FROM [facility] DATE OF SERVICE: 2019-09-20 05:02:47 IMAGES: [id number] EXAM: ABDOMEN \\T\\ PELVIS CT W/O CONTR HISTORY: Diarrhea and GI bleed. Radiation and chemotherapy COMPARISON: None. FINDINGS: There are moderate-sized bilateral pleural effusions with compressive atelectasis and/or pneumonia. The heart is enlarged. Gallstones are noted without inflammation or biliary duct dilation. Hepatic hypodensities may represent cysts. Normal unenhanced pancreas , spleen, adrenal glands and kidneys. The stomach and abdominal small and large bowel are normal. There is no aortic aneurysm. There is no significant retroperitoneal lymphadenopathy. Diffuse mesenteric edema and small amount of pelvic free fluid is noted, possibly representing anasarca. There is a subacute right eighth rib fracture with callus formation. The pelvic small and large bowel are normal. There is no evidence of appendicitis. Status post hysterectomy. Urinary bladder is unremarkable. No discrete pelvic lymphadenopathy is identified. Diffuse sub-cutaneous edema may represent anasarca. IMPRESSION: Moderate-sized bilateral pleural effusions with compressive atelectasis and/or pneumonia. Possible anasarca with small amount of pelvic free fluid. Liver hypodensities may represent cyst which could be further evaluated with ultrasound. Gallstones. Subacute right eighth rib fracture. One or more of the following dose reduction techniques were used: automated exposure control, adjustment of the mA and/or kV according to patient size, use of iterative reconstructive technique. THIS DOCUMENT HAS BEEN ELECTRONICALLY SIGNED Mulugeta Oviedo MD 09/20/2019 05:29 DUSTIN Coles Please call Imaging [facility] Relations Specialist [phone]) with questions. Ken Oviedo MD 09/20/19 06:04 Pt is an elderly woman with fluid overload resulting in gross ansarca, bilateral pulmonary effusions causing compressive atelectasis and hypoxia on room air at rest. Suspect pt has elevated troponin 2/2 demand ischemia in the setting of fluid overload. Pt would benefit from inpatient admission, diueresis , continuous cardiac monitoring, cardiology consult, pulmonary consult. Signout given to Dr. Puckett by Dr. Salomon, PGY3 EM Resident. Pt admitted tele inpatient. Discharge - Discharge Information Problems reviewed: Yes Clinical Impression/Diagnosis: Weakness, Anasarca, Fluid overload, Hypoxia Condition: Guarded - Admission Yes - Follow up/Referral - Patient Discharge Instructions - Post Discharge Activity
--- NOTE | 2019-09-20 01:43 | PDOC ---
Attending Attestation - Resident Resident Name: AugustinJohnna - ED Attending Attestation I have performed the following: I have examined & evaluated the patient, The case was reviewed & discussed with the resident, I agree w/resident's findings & plan - HPI HPI: 09/20/19 02:38 agree with resident hpi - Physicial Exam PE: 09/20/19 02:38 agree with resident exam - Medical Decision Making 09/20/19 02:38 74-year-old female currently getting chemotherapy and radiation for multiple myeloma complaining of abdominal pains, right chest wall pain and bloody stools Plan for labs, sepsis evaluation CT scan abdomen and pelvis Will admit for further work-up pending results
[2019-09-20 04:49] LABS: BASO % 0.3 % (0-2.0); EOS % 0.1 % (0-4.5); HEMATOCRIT 31.7 % (32.4-45.2); LYMPH % 12.1 % (8-40); MCH 32.3 pg (25.7-33.7); MCHC 31.7 g/dl (32.0-36.0); MEAN PLT VOLUME 10.5 fl (7.5-11.1); MONO % 3.8 % (3.8-10.2); NEUT % 83.7 % (42.8-82.8); PLATELET COUNT 137 K/MM3 (134-434); RBC 3.11 M/mm3 (3.60-5.2); RDW 17.1 % (11.6-15.6); WHITE BLOOD COUNT 4.8 K/mm3 (4.0-10.0)
[2019-09-20 05:15] LABS: MAGNESIUM 2.4 mg/dL (1.8-2.4); PHOSPHOROUS 3.2 mg/dL (2.5-4.9)
[2019-09-20 05:17] LABS: ALBUMIN 1.2 g/dl (3.4-5.0); BILIRUBIN,TOTAL 0.4 mg/dL (0.2-1); BLOOD UREA NITROGEN 45.6 mg/dL (7-18); CALCIUM 8.9 mg/dL (8.5-10.1); CREATININE 1.3 mg/dL (0.55-1.3); POTASSIUM 4.4 mmol/L (3.5-5.1); TOT PROT 6.6 g/dl (6.4-8.2)
[2019-09-20 05:19] LABS: INR 1.16 (0.83-1.09); PROTHROMBIN TIME (PATIENT) 13.7 SEC (9.7-13.0)
[2019-09-20 06:15] LABS: ARTERIAL BLD GAS O2 SATURATION 86.1 % (95-98); ARTERIAL BLOOD GAS BASE EXCESS -2.7 meq/l (-2-2); ARTERIAL BLOOD GAS PO2 53.8 mmHg (80-100); ARTERIAL BLOOD GAS pH 7.42 (7.35-7.45); CARBOXYHEMOGLOBIN 1.2 % (0-2)
[2019-09-20 06:23] LABS: N-TERMINAL BNP 101630.3 pg/ml (5-450)
[2019-09-20 06:24] LABS: ALLENS TEST POSITIVE
[2019-09-20 07:03] LABS: EPI CELLS 10.6 /HPF (0-5/HPF); HYALINE CASTS 22 /lpf (0-8); URINE APPEARANCE CLOUDY; URINE BACTERIA 32.3 /hpf (NEGATIVE); URINE BILIRUBIN NEGATIVE (NEGATIVE); URINE COLOR DK YELLOW; URINE GLUCOSE (UA) NEGATIVE (NEGATIVE); URINE KETONE NEGATIVE (NEGATIVE); URINE LEUK ESTERASE TRACE (NEGATIVE); URINE NITRITE NEGATIVE (NEGATIVE); URINE PROTEIN 4+ (NEGATIVE); URINE RBC 2 /hpf (0-4); URINE WBC 5 /hpf (0-5)
--- NOTE | 2019-09-20 10:32 | EKG ---
Test Reason : Blood Pressure : / mmHG Vent. Rate : 101 BPM Atrial Rate : 101 BPM P-R Int : 150 ms QRS Dur : 130 ms QT Int : 360 ms P-R-T Axes : 051 -27 151 degrees QTc Int : 466 ms SINUS TACHYCARDIA LEFT VENTRICULAR HYPERTROPHY WITH QRS WIDENING T WAVE ABNORMALITY, CONSIDER LATERAL ISCHEMIA ABNORMAL ECG Confirmed by MD LETICIA, LUIS ANGEL ([id number]) on 09/20/2019 10:32:13 AM Referred By: Confirmed By:LUIS ANGEL KELLY MD
--- NOTE | 2019-09-20 11:47 | EKG ---
Test Reason : Blood Pressure : / mmHG Vent. Rate : 095 BPM Atrial Rate : 095 BPM P-R Int : 114 ms QRS Dur : 130 ms QT Int : 364 ms P-R-T Axes : 026 -28 179 degrees QTc Int : 457 ms SINUS RHYTHM WITH SINUS ARRHYTHMIA WITH OCCASIONAL PREMATURE VENTRICULAR COMPLEXES LEFT VENTRICULAR HYPERTROPHY WITH QRS WIDENING CANNOT RULE OUT SEPTAL INFARCT , AGE UNDETERMINED T WAVE ABNORMALITY, CONSIDER ANTEROLATERAL ISCHEMIA ABNORMAL ECG Confirmed by MD LETICIA, LUIS ANGEL ([id number]) on 09/20/2019 11:47:28 AM Referred By: Confirmed By:LUIS ANGEL KELLY MD
--- NOTE | 2019-09-20 16:53 | ECHO ---
Version: 1 Name: SHERRY SIMPSON Exam: Adult Echocardiogram Study Date: 09/20/2019, 2:25 PM Age: 74 Years MMode/2D Measurements & Calculations IVSd: 1.61 cm LVIDs: 3.9 cm LVIDd: 4.6 cm LVPWd: 1.36 cm ACS: 2.06 cm Ao root diam: 2.7 cm LVOT diam: 2.04 cm LA dimension: 3.8 cm Doppler Measurements & Calculations MV E max carlos: 91.8 cm/sec MVA(VTI): 3.3 cm MV A max carlos: 88.8 cm/sec MV V2 max: 87.2 cm/sec MV mean P.23 mmHg MV max P.0 mmHg MV E/A: 1.03 Med E/e': 6.2 Lat E/e': 17.2 Med Peak E' Carlos: 14.7 cm/sec Lat Peak E' Carlos: 5.3 cm/sec MR max P.0 mmHg Ao max P.4 mmHg BRYAN(I,D): 2.00 cm Ao mean P.6 mmHg LV V1 mean: 53.7 cm/sec Ao V2 max: 135.5 cm/sec LV V1 mean P.37 mmHg AI P1/2t: 276.2 msec PI end-d carlos: 111.5 cm/sec TR max carlos: 214.2 cm/sec TR max P.5 mmHg Procedure A complete two-dimensional transthoracic echocardiogram was performed (2D, M-mode, Doppler and color flow Doppler). Left Ventricle The left ventricle is normal in size. Ejection Fraction = 20%. Left ventricular systolic function is severely reduced. Diastolic dysfunction, Grade II (pseudonormalization pattern). Right Ventricle There is normal right ventricular wall thickness. The right ventricular systolic function is mildly reduced. Atria Normal left and right atrial size and function. Mitral Valve The mitral valve is normal in structure and function. There is mild mitral regurgitation. Tricuspid Valve The tricuspid valve is normal in structure and function. There is mild tricuspid regurgitation. Aortic Valve The aortic valve is trileaflet. No hemodynamically significant valvular aortic stenosis. Mild to mod erate aortic regurgitation. Pulmonic Valve The pulmonic valve is not well visualized. Great Vessels The aortic root is normal size. Pericardium/Pleura Small pericardial effusion (<1cm). There are no echocardiographic indications of cardiac tamponade. There is a pleural effusion present. Summary Statements Left ventricular systolic function is severely reduced. The right ventricular systolic function is mildly reduced. Small pericardial effusion (<1cm) There is a pleural effusion present. Kemar Tierney 09/20/2019, 4:52 PM Ordering Physician: Paulette Puckett Performed By: Kaur Castellon
--- NOTE | 2019-09-20 19:59 | CON.GI ---
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 This evening the abdominal bloating , diarrhea has resolved. No further rectal bleeding. She had a colonoscopy several years ago. - Past Medical History Cardio/Vascular: Yes: CAD (s/p HOLLY D1 this month after NSTEMI), CHF (Chronic systolic CHF, mildly reduced LV function with EF 45%), HTN, Hyperlipdemia Pulmonary: Yes: Asthma Gastrointestinal: Yes: Other (hiatal hernia; rectal polyp) Renal/: Yes: Renal Inusuff, Other (proteinuria) Psych: Yes: Depression Endocrine: Yes: Hypothyroidism - Past Surgical History Past Surgical History: Yes: Breast Biopsy (right for cysts), Hernia Repair ( laparoscopic hiatal), Hysterectomy, Tubal Ligation - Alcohol/Substance Use Hx Alcohol Use: No History of Substance Use: reports: None - Smoking History Smoking history: Unknown if ever smoked Have you smoked in the past 12 months: No Aproximately how many cigarettes per day: 5 If you are a former smoker, when did you quit?: 1970 - Social History ADL: Independent History of Recent Travel: No Home Medications - Allergies Allergies/Adverse Reactions: Allergies Allergy/AdvReac Type Severity Reaction Status Date / Time Penicillins Allergy Severe Rash Verified 09/20/19 03:59 - Home Medications Home Medications: Ambulatory Orders Allopurinol [Zyloprim -] 300 mg PO DAILY #30 tablet 11/09/18 Pantoprazole Sodium [Protonix -] 40 mg PO DAILY #30 tablet.ec 11/09/18 Aspirin [ASA -] 81 mg PO DAILY 12/30/18 Clopidogrel Bisulfate [Plavix -] 75 mg PO DAILY #30 tablet 01/07/19 Valacyclovir HCl [Valtrex -] 500 mg PO DAILY #30 tablet 01/07/19 Levothyroxine [Synthroid -] 75 mcg PO DAILY@0700 01/28/19 Potassium Chloride [K-Dur -] 10 meq PO DAILY 01/28/19 Atorvastatin Ca [Lipitor] 40 mg PO HS 04/09/19 Loratadine 10 mg PO DAILY 04/09/19 Escitalopram Oxalate [Lexapro -] 10 mg PO DAILY #30 tablet 04/25/19 Losartan Potassium [Cozaar -] 25 mg PO DAILY #30 tablet 04/25/19 Furosemide [Lasix -] 20 mg PO ASDIR 07/13/19 Physical Exam-GI Vital Signs: Vital Signs Temperature 98.8 F 09/20/19 18:00 Pulse Rate 97 H 09/20/19 18:00 Respiratory Rate 18 09/20/19 18:00 Blood Pressure 102/67 09/20/19 18:00 O2 Sat by Pulse Oximetry (%) 92 L 09/20/19 18:00 Constitutional: Yes: No Distress Eyes: Yes: Conjunctiva Clear HENT: Yes: Atraumatic Neck: Yes: Supple Cardiovascular: Yes: Regular Rate and Rhythm Respiratory: Yes: CTA Bilaterally ...Palpate: Yes: Soft. No: Firm/Rigid, Guarding, Hepatomegaly, Mass, Pulsatile Mass, Splenomegaly, Tenderness Labs: CBC, BMP 09/20/19 04:16 09/20/19 04:16 INR, PTT INR 1.16 (0.83-1.09) H 09/20/19 04:16 Problem List - Problems (1) Anemia Assessment/Plan: secondary to chronic disease R> will need to stage melanoma before subjecting the patient to gi w/u Code(s): D64.9 - ANEMIA, UNSPECIFIED
--- NOTE | 2019-09-20 21:20 | HP ---
Admitting History and Physical - Past Medical History Cardiovascular: Yes: CAD (s/p HOLLY D1 this month after NSTEMI), CHF (Chronic systolic CHF, mildly reduced LV function with EF 45%), HTN, Hyperlipdemia Pulmonary: Yes: Asthma Gastrointestinal: Yes: Other (hiatal hernia; rectal polyp) Renal/: Yes: Renal Inusuff, Other (proteinuria) Heme/Onc: Yes: Anemia Psych: Yes: Depression Endocrine: Yes: Hypothyroidism - Past Surgical History Past Surgical History: Yes: Breast Biopsy (right for cysts), Hernia Repair ( laparoscopic hiatal), Hysterectomy, Tubal Ligation - Smoking History Smoking history: Former smoker Have you smoked in the past 12 months: No Aproximately how many cigarettes per day: 5 If you are a former smoker, when did you quit?: 1969 - Alcohol/Substance Use Hx Alcohol Use: No History of Substance Use: reports: None - Social History ADL: Independent History of Recent Travel: No Home Medications - Allergies Allergies/Adverse Reactions: Allergies Allergy/AdvReac Type Severity Reaction Status Date / Time Penicillins Allergy Severe Rash Verified 09/20/19 03:59 - Home Medications Home Medications: Ambulatory Orders Allopurinol [Zyloprim -] 300 mg PO DAILY #30 tablet 11/09/18 Pantoprazole Sodium [Protonix -] 40 mg PO DAILY #30 tablet.ec 11/09/18 Aspirin [ASA -] 81 mg PO DAILY 12/30/18 Clopidogrel Bisulfate [Plavix -] 75 mg PO DAILY #30 tablet 01/07/19 Valacyclovir HCl [Valtrex -] 500 mg PO DAILY #30 tablet 01/07/19 Levothyroxine [Synthroid -] 75 mcg PO DAILY@0700 01/28/19 Potassium Chloride [K-Dur -] 10 meq PO DAILY 01/28/19 Atorvastatin Ca [Lipitor] 40 mg PO HS 04/09/19 Loratadine 10 mg PO DAILY 04/09/19 Escitalopram Oxalate [Lexapro -] 10 mg PO DAILY #30 tablet 04/25/19 Losartan Potassium [Cozaar -] 25 mg PO DAILY #30 tablet 04/25/19 Furosemide [Lasix -] 20 mg PO ASDIR 07/13/19 Physical Examination Vital Signs: Vital Signs Temperature 98.8 F 09/20/19 20:38 Pulse Rate 102 H 09/20/19 20:38 Respiratory Rate 18 09/20/19 20:38 Blood Pressure 100/57 L 09/20/19 20:38 O2 Sat by Pulse Oximetry (%) 98 09/20/19 20:38 Labs: CBC, BMP 09/20/19 04:16 09/20/19 04:16
[2019-09-20] MEDS ORDERED: SODIUM CHLORIDE 250 ML IV ONE (22:30)
[2019-09-20] MEDS: ATORVASTATIN CA 40 MG TABLET (FP) PO SCH (22:34)
[2019-09-20] MEDS: ACETAMINOPHEN 325 MG TABLET (FP) PO PRN (22:34)
[2019-09-21] MEDS: LEVOTHYROXINE NA 75 MCG TABLET (FP) PO SCH (06:21)
[2019-09-21 06:53] LABS: BASO % 0.5 % (0-2.0); EOS % 0.4 % (0-4.5); HEMATOCRIT 25.9 % (32.4-45.2); HEMOGLOBIN 8.3 GM/dL (10.7-15.3); LYMPH % 23.5 % (8-40); MCH 32.1 pg (25.7-33.7); MCHC 32.1 g/dl (32.0-36.0); MEAN CELL VOLUME 99.9 fl (80-96); MEAN PLT VOLUME 10.3 fl (7.5-11.1); MONO % 8.2 % (3.8-10.2); NEUT % 67.4 % (42.8-82.8); PLATELET COUNT 132 K/MM3 (134-434); RBC 2.59 M/mm3 (3.60-5.2); RDW 16.6 % (11.6-15.6); WHITE BLOOD COUNT 3.3 K/mm3 (4.0-10.0)
[2019-09-21 07:49] LABS: BILIRUBIN,TOTAL 0.3 mg/dL (0.2-1); BLOOD UREA NITROGEN 44.5 mg/dL (7-18); CALCIUM 8.2 mg/dL (8.5-10.1); CREATININE 1.2 mg/dL (0.55-1.3); POTASSIUM 4.1 mmol/L (3.5-5.1); TOT PROT 5.5 g/dl (6.4-8.2)
--- NOTE | 2019-09-21 08:07 | CON.CARD ---
Consult Consult Specialty:: cardiology Reason for Consultation:: shortness of breath; diarrhea - History of Present Illness Chief Complaint: A&Ox3; dyspnea on [place] exertion History of Present Illness: 74 year old black female with PMH HTN, HLD, CAD s/p coronary artery stenting, GERD, multiple myeloma (chemo; radiation directed at abdomen), ? "mild" systolic CHF, on Lasix, rectal hemorrhoids, now presented to ED for diarrhea x2 days associated with generalized weakness, ROGERS. Pt reported she has had loose, watery diarrhea x2 days, and prior to that he had rectal bleeding x2 days (on toilet paper and mixed in stool) that self resolved. She reported she only noticed the bleeding because it was on the toilet paper, as she did not have abdominal or rectal pain. Pt reported generalized weakness and ROGERS, which prompted her to come to the ED. Pt denied nausea, vomiting, fever, abdominal pain, chest pain, increased LE swelling. She reported she believed her lower extremity swelling is actually improving. She also reported noticing a new "rash " to her right hip since last week. - History Source History Provided By: Patient, Family Member, Medical Record Limitations to Obtaining History: No Limitations - Past Medical History Cardio/Vascular: Yes: CAD (s/p HOLLY D1 this month after NSTEMI), CHF (Chronic systolic CHF, mildly reduced LV function with EF 45%), HTN, Hyperlipdemia Pulmonary: Yes: Asthma Gastrointestinal: Yes: Other (hiatal hernia; rectal polyp) Renal/: Yes: Renal Inusuff, Other (proteinuria) Reproductive: Yes: Postmenopausal ...: No Heme/Onc: Yes: Anemia Psych: Yes: Depression Endocrine: Yes: Hypothyroidism - Past Surgical History Past Surgical History: Yes: Breast Biopsy (right for cysts), Hernia Repair ( laparoscopic hiatal), Hysterectomy, Tubal Ligation - Alcohol/Substance Use Hx Alcohol Use: No History of Substance Use: reports: None - Smoking History Smoking history: Former smoker Have you smoked in the past 12 months: No Aproximately how many cigarettes per day: 5 If you are a former smoker, when did you quit?: 1969 - Social History ADL: Independent History of Recent Travel: No Home Medications - Allergies Allergies/Adverse Reactions: Allergies Allergy/AdvReac Type Severity Reaction Status Date / Time Penicillins Allergy Severe Rash Verified 09/20/19 03:59 - Home Medications Home Medications: Ambulatory Orders Allopurinol [Zyloprim -] 300 mg PO DAILY #30 tablet 11/09/18 Pantoprazole Sodium [Protonix -] 40 mg PO DAILY #30 tablet.ec 11/09/18 Aspirin [ASA -] 81 mg PO DAILY 12/30/18 Clopidogrel Bisulfate [Plavix -] 75 mg PO DAILY #30 tablet 01/07/19 Valacyclovir HCl [Valtrex -] 500 mg PO DAILY #30 tablet 01/07/19 Levothyroxine [Synthroid -] 75 mcg PO DAILY@0700 01/28/19 Potassium Chloride [K-Dur -] 10 meq PO DAILY 01/28/19 Atorvastatin Ca [Lipitor] 40 mg PO HS 04/09/19 Loratadine 10 mg PO DAILY 04/09/19 Escitalopram Oxalate [Lexapro -] 10 mg PO DAILY #30 tablet 04/25/19 Losartan Potassium [Cozaar -] 25 mg PO DAILY #30 tablet 04/25/19 Furosemide [Lasix -] 20 mg PO ASDIR 07/13/19 Family Medical History Family History: Denies Review of Systems - Review of Systems Constitutional: reports: Weakness Eyes: reports: No Symptoms HENT: reports: No Symptoms Neck: reports: No Symptoms Cardiovascular: reports: Shortness of Breath Respiratory: reports: Exercise Intolerance, SOB Gastrointestinal: reports: Diarrhea, Rectal Bleeding Genitourinary: reports: Hematuria Breasts: reports: No Symptoms Reported Musculoskeletal: reports: Muscle Weakness Integumentary: reports: No Symptoms Neurological: reports: Weakness Endocrine: reports: No Symptoms Hematology/Lymphatic: reports: Excessive Bleeding Psychiatric: reports: Anxiety, Depression - Risk Factors Known Risk Factors: Yes: Age, Physical Inactivity, Race, Other (CAD-->stents; multiple myeloma) Vital Signs: Vital Signs Temperature 98.8 F 09/21/19 06:00 Pulse Rate 97 H 09/21/19 06:00 Respiratory Rate 18 09/21/19 06:00 Blood Pressure 92/57 L 09/21/19 06:00 O2 Sat by Pulse Oximetry (%) 98 09/20/19 20:38 Constitutional: Yes: Anxious Eyes: Yes: WNL HENT: Yes: WNL Neck: Yes: WNL Respiratory: Yes: SOB on Exertion Gastrointestinal: Yes: Soft Renal/: No: Anuria Cardiovascular: Yes: Regular Rate and Rhythm JVD: No Carotid Bruit: No PMI: Non-Displaced Heart Sounds: Yes: S1, S2. No: S3 Murmur: Yes: Systolic Murmur, Grade 2 Musculoskeletal: Yes: Muscle Weakness Extremities: Yes: Cool Edema: Yes Edema: LLE: 1+, RLE: 1+ Integumentary: Yes: WNL Neurological: Yes: Alert, Oriented, Weakness Psychiatric: Yes: Alert, Oriented - Other Data Labs, Other Data: CBC, BMP 09/21/19 05:31 09/21/19 05:31 INR, PTT INR 1.16 (0.83-1.09) H 09/20/19 04:16 Troponin, BNP 09/20/19 09/20/19 09/20/19 04:16 12:14 22:30 Troponin I 0.11 H 0.12 H B-Natriuretic Peptide Cancelled Troponin, BNP 09/20/19 09/20/19 09/20/19 04:16 12:14 22:30 Troponin I 0.11 H 0.12 H B-Natriuretic Peptide Cancelled Abnormal Lab Results 09/22/19 09/23/19 09/23/19 12:40 06:05 06:05 WBC 2.7 L RBC 2.66 L Hgb 8.7 L Hct 26.7 L MCV 100.4 H RDW 16.7 H Chloride 109 H Anion Gap 7 L BUN 39.8 H Calcium 8.2 L AST 11 L ALT 12 L Troponin I 0.16 H Total Protein 6.2 L Albumin 1.1 L TSH 4.65 H Echo: Report Reviewed Ejection Fraction %: LVEF < 40 % Imaging - Results Chest X-ray: Image Reviewed X-ray: Image Reviewed EKG: Image Reviewed Problem List - Problems (1) Hypoxia Code(s): R09.02 - HYPOXEMIA (2) Weakness Code(s): R53.1 - WEAKNESS (3) ASHD (arteriosclerotic heart disease) Code(s): I25.10 - ATHSCL HEART DISEASE OF [place] CORONARY ARTERY W/O ANG PCTRS (4) Acute on chronic systolic CHF (congestive heart failure) Assessment/Plan: On losartan and furosemide. F/u BNP, BUN/Cr, electrolytes, daily weight, Is and Os. ECHO for LVEF and LV size (hx chemotherapy), all chamber sizes, valve status. Plan to start carvedilol or metoprolol if BP and HR allow. Code(s): I50.23 - ACUTE ON CHRONIC SYSTOLIC (CONGESTIVE) HEART FAILURE (5) Adult onset hypothyroidism Code(s): E03.8 - OTHER SPECIFIED HYPOTHYROIDISM (6) Anemia Code(s): D64.9 - ANEMIA, UNSPECIFIED (7) Anxiety Code(s): F41.9 - ANXIETY DISORDER, UNSPECIFIED (8) Elevated troponin Code(s): R74.8 - ABNORMAL LEVELS OF OTHER SERUM ENZYMES (9) HLD (hyperlipidemia) Code(s): E78.5 - HYPERLIPIDEMIA, UNSPECIFIED Qualifiers: Hyperlipidemia type: unspecified Qualified Code(s): E78.5 - Hyperlipidemia , unspecified (10) HTN (hypertension) Code(s): I10 - ESSENTIAL (PRIMARY) HYPERTENSION Qualifiers: Hypertension type: unspecified Qualified Code(s): I10 - Essential (primary ) hypertension (11) History of heart artery stent Code(s): Z95.5 - PRESENCE OF CORONARY ANGIOPLASTY IMPLANT AND GRAFT (12) Multiple myeloma Assessment/Plan: f/u with oncologist/sack sewer machine. Code(s): C90.00 - MULTIPLE MYELOMA NOT HAVING ACHIEVED REMISSION Qualifiers: Multiple myeloma remission status: not in remission Qualified Code(s): C90.00 - Multiple myeloma not having achieved remission (13) Pancytopenia Code(s): D61.818 - OTHER PANCYTOPENIA
[2019-09-21] MEDS ORDERED: LOSARTAN POTASSIUM 25 MG TABLET PO SCH (10:00)
--- NOTE | 2019-09-21 10:46 | PN ---
Progress Note, Physician History of Present Illness: 74 year old black female with PMH HTN, HLD, CAD s/p coronary artery stenting, GERD, multiple myeloma (chemo; radiation directed at abdomen), ? "mild" systolic CHF, on Lasix, rectal hemorrhoids, now presented to ED for diarrhea x2 days associated with generalized weakness, ROGERS. Pt reported she has had loose, watery diarrhea x2 days, and prior to that he had rectal bleeding x2 days (on toilet paper and mixed in stool) that self resolved. She reported she only noticed the bleeding because it was on the toilet paper, as she did not have abdominal or rectal pain. Pt reported generalized weakness and ROGERS, which prompted her to come to the ED. Pt denied nausea, vomiting, fever, abdominal pain, chest pain, increased LE swelling. She reported she believed her lower extremity swelling is actually improving. She also reported noticing a new "rash " to her right hip since last week. - Current Medication List Current Medications: Active Medications Acetaminophen (Tylenol -) 650 mg PO Q6H PRN PRN Reason: FEVER Last Admin: 09/20/19 22:34 Dose: 650 mg Albuterol/Ipratropium (Duoneb -) 1 amp NEB Q6H PRN PRN Reason: SHORTNESS OF BREATH Allopurinol (Zyloprim -) 300 mg PO DAILY [facility] Atorvastatin Calcium (Lipitor -) 40 mg PO HS [facility] Last Admin: 09/20/19 22:34 Dose: 40 mg Escitalopram Oxalate (Lexapro -) 10 mg PO DAILY [facility] Furosemide (Lasix Injection -) 40 mg IVPUSH DAILY [facility] Levothyroxine Sodium (Synthroid -) 75 mcg PO DAILY@0700 [facility] Last Admin: 09/21/19 06:21 Dose: 75 mcg Losartan Potassium (Cozaar -) 25 mg PO DAILY [facility] Pantoprazole Sodium (Protonix -) 40 mg PO DAILY [facility] Potassium Chloride (K-Dur -) 10 meq PO DAILY [facility] Valacyclovir HCl (Valtrex -) 500 mg PO DAILY [facility] - Objective Vital Signs: Vital Signs Temperature 98.8 F 09/21/19 06:00 Pulse Rate 97 H 09/21/19 06:00 Respiratory Rate 18 09/21/19 06:00 Blood Pressure 92/57 L 09/21/19 06:00 O2 Sat by Pulse Oximetry (%) 98 09/20/19 20:38 Eyes: Yes: WNL, Conjunctiva Clear, EOM Intact HENT: Yes: WNL, Atraumatic, Normocephalic Neck: Yes: WNL, Supple, Trachea Midline Cardiovascular: Yes: WNL, Regular Rate and Rhythm Respiratory: Yes: WNL, Regular, CTA Bilaterally Gastrointestinal: Yes: WNL, Normal Bowel Sounds Genitourinary: Yes: WNL Musculoskeletal: Yes: WNL Extremities: Yes: WNL Edema: No Integumentary: Yes: WNL Neurological: Yes: WNL, Alert, Oriented ...Motor Strength: WNL Psychiatric: Yes: WNL Labs: CBC, BMP 09/21/19 05:31 09/21/19 05:31 INR, PTT INR 1.16 (0.83-1.09) H 09/20/19 04:16 Assessment/Plan - Problems (1) Hypoxia Code(s): R09.02 - HYPOXEMIA (2) Weakness Code(s): R53.1 - WEAKNESS (3) ASHD (arteriosclerotic heart disease) Code(s): I25.10 - ATHSCL HEART DISEASE OF [place] CORONARY ARTERY W/O ANG PCTRS (4) Acute exacerbation of CHF (congestive heart failure) Code(s): I50.9 - HEART FAILURE, UNSPECIFIED (5) Acute on chronic systolic CHF (congestive heart failure) Assessment/Plan: On losartan and furosemide. F/u BNP, BUN/Cr, electrolytes, daily weight, Is and Os. ECHO for LVEF and LV size (hx chemotherapy), all chamber sizes, valve status. Code(s): I50.23 - ACUTE ON CHRONIC SYSTOLIC (CONGESTIVE) HEART FAILURE (6) Adult onset hypothyroidism Code(s): E03.8 - OTHER SPECIFIED HYPOTHYROIDISM (7) Anemia Code(s): D64.9 - ANEMIA, UNSPECIFIED (8) Anxiety Code(s): F41.9 - ANXIETY DISORDER, UNSPECIFIED (9) Elevated troponin Code(s): R74.8 - ABNORMAL LEVELS OF OTHER SERUM ENZYMES (10) HLD (hyperlipidemia) Code(s): E78.5 - HYPERLIPIDEMIA, UNSPECIFIED Qualifiers: Hyperlipidemia type: unspecified Qualified Code(s): E78.5 - Hyperlipidemia , unspecified (11) HTN (hypertension) Code(s): I10 - ESSENTIAL (PRIMARY) HYPERTENSION Qualifiers: Hypertension type: unspecified Qualified Code(s): I10 - Essential (primary ) hypertension (12) History of heart artery stent Code(s): Z95.5 - PRESENCE OF CORONARY ANGIOPLASTY IMPLANT AND GRAFT (13) Multiple myeloma Code(s): C90.00 - MULTIPLE MYELOMA NOT HAVING ACHIEVED REMISSION Qualifiers: Multiple myeloma remission status: not in remission Qualified Code(s): C90.00 - Multiple myeloma not having achieved remission
--- NOTE | 2019-09-21 11:39 | PN ---
Progress Note (short form) - Note Progress Note: PULMONARY CONSULTATION DICTATED 09/21/19 IMP ACUTE HYPOXEMIC RESPIRATORY FAILURE ACUTE ON CHRONIC SYSTOLIC/DIASTOLIC HF SEVERE LV DYSFUNCTION BILATERAL PLEURAL EFFUSIONS + TROPONIN MULTIPLE MYELOMA ON CHEMO/RT HTN ASHD S/P NSTEMI,S/P HOLLY ANEMIA RECTAL BLEED HYPOTHYROID HLD PLAN LASIX O2 DAILY WTS STRICT I+OS MONITOR LYTES,H+H NORMAL TRANSFUSION THRESHOLD TREND TROPONINS F/U CHEST X-RAYS DR GREY Problem List - Problems (1) Anasarca Code(s): R60.1 - GENERALIZED EDEMA (2) Fluid overload Code(s): E87.70 - FLUID OVERLOAD, UNSPECIFIED (3) Hypoxia Code(s): R09.02 - HYPOXEMIA (4) Weakness Code(s): R53.1 - WEAKNESS (5) ASHD (arteriosclerotic heart disease) Code(s): I25.10 - ATHSCL HEART DISEASE OF [place] CORONARY ARTERY W/O ANG PCTRS (6) Acute exacerbation of CHF (congestive heart failure) Code(s): I50.9 - HEART FAILURE, UNSPECIFIED (7) Acute on chronic systolic CHF (congestive heart failure) Code(s): I50.23 - ACUTE ON CHRONIC SYSTOLIC (CONGESTIVE) HEART FAILURE (8) Adult onset hypothyroidism Code(s): E03.8 - OTHER SPECIFIED HYPOTHYROIDISM (9) Anemia Code(s): D64.9 - ANEMIA, UNSPECIFIED (10) CKD (chronic kidney disease) Code(s): N18.9 - CHRONIC KIDNEY DISEASE, UNSPECIFIED (11) Elevated troponin Code(s): R74.8 - ABNORMAL LEVELS OF OTHER SERUM ENZYMES (12) HLD (hyperlipidemia) Code(s): E78.5 - HYPERLIPIDEMIA, UNSPECIFIED Qualifiers: Hyperlipidemia type: unspecified Qualified Code(s): E78.5 - Hyperlipidemia , unspecified (13) HTN (hypertension) Code(s): I10 - ESSENTIAL (PRIMARY) HYPERTENSION Qualifiers: Hypertension type: unspecified Qualified Code(s): I10 - Essential (primary ) hypertension (14) History of heart artery stent Code(s): Z95.5 - PRESENCE OF CORONARY ANGIOPLASTY IMPLANT AND GRAFT (15) Multiple myeloma Code(s): C90.00 - MULTIPLE MYELOMA NOT HAVING ACHIEVED REMISSION Qualifiers: Multiple myeloma remission status: not in remission Qualified Code(s): C90.00 - Multiple myeloma not having achieved remission
[2019-09-21] MEDS: POTASSIUM CHLORIDE TABS 10 MEQ TABLET.ER (FP) PO SCH (11:53)
[2019-09-21] MEDS: ALLOPURINOL 300 MG TABLET (FP) PO SCH (11:54)
[2019-09-21] MEDS: PANTOPRAZOLE 40 MG TABLET (FP) PO SCH (11:54)
[2019-09-21] MEDS: ESCITALOPRAM OXALATE 10 MG TABLET (FP) PO SCH (11:54)
[2019-09-21] MEDS: valACYclovir HCL 500 MG TABLET (FP) PO SCH (11:54)
[2019-09-21] MEDS: FUROSEMIDE 40 MG/4 ML INJECTABLE VIAL IVPUSH SCH (12:02)
--- NOTE | 2019-09-21 12:23 | CON.ID ---
Consult Consult Specialty:: infectious diseases Referred by:: Reason for Consultation:: pneumonia,resp issues - History of Present Illness Chief Complaint: shortness of breath,weakness,fatigue History of Present Illness: 74 year old female with PMH HTN, HLD, CAD s/p coronary artery stenting, GERD, multiple myeloma (chemo; radiation directed at abdomen), ? "mild" systolic CHF, on Lasix, rectal hemorrhoids, admitted for diarrhea x2 days associated with generalized weakness, ROGERS. Pt reported she has had loose, watery diarrhea x2 days, and prior to that he had rectal bleeding x2 days (on toilet paper and mixed in stool) that self resolved. She reported she only noticed the bleeding because it was on the toilet paper, as she did not have abdominal or rectal pain. Pt reported generalized weakness and ROGERS, which prompted her to come to the ED. Pt denied nausea, vomiting, fever, abdominal pain, chest pain, increased LE swelling. She reported she believed her lower extremity swelling is actually improving. She also reported noticing a new "rash" to her right hip since last week. patient also mentions that she feels very weak - History Source History Provided By: Patient Limitations to Obtaining History: No Limitations - Past Medical History Cardio/Vascular: Yes: CAD (s/p HOLLY D1 this month after NSTEMI), CHF (Chronic systolic CHF, mildly reduced LV function with EF 45%), HTN, Hyperlipdemia Pulmonary: Yes: Asthma Gastrointestinal: Yes: Other (hiatal hernia; rectal polyp) Renal/: Yes: Renal Inusuff, Other (proteinuria) Psych: Yes: Depression Endocrine: Yes: Hypothyroidism - Past Surgical History Past Surgical History: Yes: Breast Biopsy (right for cysts), Hernia Repair ( laparoscopic hiatal), Hysterectomy, Tubal Ligation - Alcohol/Substance Use Hx Alcohol Use: No History of Substance Use: reports: None - Smoking History Smoking history: Former smoker Have you smoked in the past 12 months: No Aproximately how many cigarettes per day: 5 If you are a former smoker, when did you quit?: 1969 - Social History ADL: Independent History of Recent Travel: No Home Medications - Allergies Allergies/Adverse Reactions: Allergies Allergy/AdvReac Type Severity Reaction Status Date / Time Penicillins Allergy Severe Rash Verified 09/20/19 03:59 - Home Medications Home Medications: Ambulatory Orders RX: Allopurinol [Zyloprim -] 300 mg PO DAILY #30 tablet 11/09/18 RX: Pantoprazole Sodium [Protonix -] 40 mg PO DAILY #30 tablet.ec 11/09/18 RX: Aspirin [ASA -] 81 mg PO DAILY 12/30/18 RX: Clopidogrel Bisulfate [Plavix -] 75 mg PO DAILY #30 tablet 01/07/19 RX: Valacyclovir HCl [Valtrex -] 500 mg PO DAILY #30 tablet 01/07/19 RX: Levothyroxine [Synthroid -] 75 mcg PO DAILY@0700 01/28/19 RX: Potassium Chloride [K-Dur -] 10 meq PO DAILY 01/28/19 RX: Atorvastatin Ca [Lipitor] 40 mg PO HS 04/09/19 RX: Loratadine 10 mg PO DAILY 04/09/19 RX: Escitalopram Oxalate [Lexapro -] 10 mg PO DAILY #30 tablet 04/25/19 RX: Losartan Potassium [Cozaar -] 25 mg PO DAILY #30 tablet 04/25/19 RX: Furosemide [Lasix -] 20 mg PO ASDIR 07/13/19 Review of Systems - Review of Systems Constitutional: reports: Weakness, Other Eyes: reports: No Symptoms HENT: reports: No Symptoms Neck: reports: No Symptoms Cardiovascular: reports: No Symptoms Respiratory: reports: SOB Gastrointestinal: reports: No Symptoms Genitourinary: reports: No Symptoms Musculoskeletal: reports: No Symptoms Integumentary: reports: No Symptoms Neurological: reports: No Symptoms Endocrine: reports: No Symptoms Hematology/Lymphatic: reports: No Symptoms Psychiatric: reports: No Symptoms Physical Exam Vital Signs: Vital Signs Temperature 99.1 F 09/21/19 11:52 Pulse Rate 99 H 09/21/19 11:52 Respiratory Rate 18 09/21/19 11:52 Blood Pressure 81/47 L 09/21/19 11:52 O2 Sat by Pulse Oximetry (%) 98 09/20/19 20:38 Constitutional: Yes: No Distress, Calm Eyes: Yes: Conjunctiva Clear Cardiovascular: Yes: Regular Rate and Rhythm Respiratory: Yes: Regular, CTA Bilaterally Gastrointestinal: Yes: Normal Bowel Sounds, Soft Musculoskeletal: Yes: WNL Extremities: Yes: WNL Integumentary: Yes: WNL Neurological: Yes: Alert, Oriented Psychiatric: Yes: Alert, Oriented Labs: CBC, BMP 09/21/19 05:31 09/21/19 05:31 Imaging - Results Cat Scan: Report Reviewed, Image Reviewed Assessment/Plan Problem List - Problems (1) Anasarca Code(s): R60.1 - GENERALIZED EDEMA (2) Fluid overload Code(s): E87.70 - FLUID OVERLOAD, UNSPECIFIED (3) Hypoxia Code(s): R09.02 - HYPOXEMIA (4) Weakness Code(s): R53.1 - WEAKNESS (5) ASHD (arteriosclerotic heart disease) Code(s): I25.10 - ATHSCL HEART DISEASE OF [place] CORONARY ARTERY W/O ANG PCTRS (6) Acute exacerbation of CHF (congestive heart failure) Code(s): I50.9 - HEART FAILURE, UNSPECIFIED (7) Acute on chronic systolic CHF (congestive heart failure) Code(s): I50.23 - ACUTE ON CHRONIC SYSTOLIC (CONGESTIVE) HEART FAILURE (8) Adult onset hypothyroidism Code(s): E03.8 - OTHER SPECIFIED HYPOTHYROIDISM (9) Anemia Code(s): D64.9 - ANEMIA, UNSPECIFIED (10) CKD (chronic kidney disease) Code(s): N18.9 - CHRONIC KIDNEY DISEASE, UNSPECIFIED (11) Elevated troponin Code(s): R74.8 - ABNORMAL LEVELS OF OTHER SERUM ENZYMES (12) HLD (hyperlipidemia) Code(s): E78.5 - HYPERLIPIDEMIA, UNSPECIFIED Qualifiers: Hyperlipidemia type: unspecified Qualified Code(s): E78.5 - Hyperlipidemia , unspecified (13) HTN (hypertension) Code(s): I10 - ESSENTIAL (PRIMARY) HYPERTENSION Qualifiers: Hypertension type: unspecified Qualified Code(s): I10 - Essential (primary ) hypertension (14) History of heart artery stent Code(s): Z95.5 - PRESENCE OF CORONARY ANGIOPLASTY IMPLANT AND GRAFT (15) Multiple myeloma Code(s): C90.00 - MULTIPLE MYELOMA NOT HAVING ACHIEVED REMISSION Qualifiers: Multiple myeloma remission status: not in remission Qualified Code(s): C90.00 - Multiple myeloma not having achieved remission uti hypotension Assessment/Plan will await for imaging studies once we have that then we will decide what to do
[2019-09-21] MEDS ORDERED: DEXTROSE 5%-0.45% SALINE 1,000 ML IV SCH (13:30)
[2019-09-21] MEDS: ACETAMINOPHEN 325 MG TABLET (FP) PO PRN (13:43)
--- NOTE | 2019-09-21 13:56 | CONSULT ---
Consultation: REQUESTING PROVIDER: HEME/ONC Service CONSULT REQUEST: We have been asked to medically evaluate this patient for multiple myeloma. HISTORY OF PRESENT ILLNESS: 74 year old female with PMH HTN, HLD, CAD s/p coronary artery stenting, GERD, multiple myeloma (chemo; radiation directed at abdomen), poor LV compliance on Lasix, rectal hemorrhoids presented to ED for diarrhea x2 days associated with generalized weakness, ROGERS. Heme/Onc was consulted because of the patient's history of multiple myeloma. On my interview, pt states she feels terrible and has felt badly for the last few weeks. She states she has had bloody diarrhea since she started getting ratiation therapy to her abdomen, which usually goes away on its own. She states that she finally came to the hospital because she was feeling more weak. She was diagnosed with multiple myeloma about 1 year ago. Per the patient She has been on chemotherapy for the last 2 weeks and has had about 20 rounds of radiation, most recently on the of this month. Of note, records reveal that pt has been following with Heme/Onc team at [facility] as early as 2014. She had a recent BM Bx and abdominal fat excisional biopsy in 11/2018. REVIEW OF SYSTEMS: CONSTITUTIONAL: generalized weakness, malaise, loss of appetite, weight change Absent: fever, chills, diaphoresis, HEENT: Absent: rhinorrhea, nasal congestion, throat pain, throat swelling, difficulty swallowing, mouth swelling, ear pain, eye pain, visual changes CARDIOVASCULAR: Absent: chest pain, syncope, palpitations, irregular heart rate, lightheadedness , peripheral edema RESPIRATORY: shortness of breath, Absent: cough, dyspnea with exertion, orthopnea, wheezing, stridor, hemoptysis GASTROINTESTINAL:diarrhea, Absent: abdominal pain, abdominal distension, nausea, vomiting, constipation, melena, hematochezia GENITOURINARY: Absent: dysuria, frequency, urgency, hesitancy, hematuria, flank pain, genital pain MUSCULOSKELETAL: Absent: myalgia, arthralgia, joint swelling, back pain, neck pain SKIN: Absent: rash, itching, pallor HEMATOLOGIC/IMMUNOLOGIC: Absent: easy bleeding, easy bruising, lymphadenopathy, frequent infections ENDOCRINE: Absent: unexplained weight gain, unexplained weight loss, heat intolerance, cold intolerance NEUROLOGIC: Absent: headache, focal weakness or paresthesias, dizziness, unsteady gait, seizure, mental status changes, bladder or bowel incontinence PSYCHIATRIC: Absent: anxiety, depression, suicidal or homicidal ideation, hallucinations. PHYSICAL EXAMINATION Vital Signs - 24 hr 09/20/19 09/20/19 09/20/19 18:00 20:38 22:00 Temperature 98.8 F 98.8 F 100.4 F H Pulse Rate 102 H 104 H Pulse Rate [ 97 H Left Apical] Respiratory 18 18 18 Rate Blood Pressure 100/57 L 88/48 L Blood Pressure 102/67 [Right Arm] O2 Sat by Pulse 92 L 98 Oximetry (%) 09/21/19 09/21/19 09/21/19 01:12 06:00 11:52 Temperature 99.1 F 98.8 F 99.1 F Pulse Rate 88 97 H 99 H Pulse Rate [ Left Apical] Respiratory 18 18 18 Rate Blood Pressure 95/60 92/57 L 81/47 L Blood Pressure [Right Arm] O2 Sat by Pulse Oximetry (%) 09/21/19 13:38 Temperature 100.2 F H Pulse Rate 92 H Pulse Rate [ Left Apical] Respiratory 16 Rate Blood Pressure 81/44 L Blood Pressure [Right Arm] O2 Sat by Pulse Oximetry (%) Gen: AAOx3, mild resp distress, on 2L O2 (does not use O2 at home) HEENT: NCAT, EOMI Neck: no jvd Cardio: rrr, normal s1s2, no mrg noted Pulm: bibasilar decreased lung sounds L>R Abd: soft, nontender, nondisteded, normal BS Ext: 2+ edema Laboratory Results - last 24 hr 09/20/19 09/21/19 09/21/19 22:30 05:31 05:31 WBC 3.3 L RBC 2.59 L Hgb 8.3 L Hct 25.9 L D MCV 99.9 H MCH 32.1 MCHC 32.1 RDW 16.6 H Plt Count 132 L MPV 10.3 Absolute Neuts (auto) 2.2 Neutrophils % 67.4 Lymphocytes % 23.5 D Monocytes % 8.2 D Eosinophils % 0.4 D Basophils % 0.5 Nucleated RBC % 0 Sodium 141 Potassium 4.1 Chloride 112 H Carbon Dioxide 22 Anion Gap 8 BUN 44.5 H Creatinine 1.2 Est GFR (CKD-EPI)AfAm 51.20 Est GFR (CKD-EPI)NonAf 44.17 Random Glucose 84 Calcium 8.2 L Total Bilirubin 0.3 AST 7 L ALT 9 L Alkaline Phosphatase 43 L Creatine Kinase 87 Troponin I 0.12 H Total Protein 5.5 L Albumin 1.0 L Active Medications Generic Name Dose Route Start Last Admin Trade Name Freq PRN Reason Stop Dose Admin Acetaminophen 650 mg 09/20/19 22:25 09/20/19 22:34 Tylenol - PO 650 mg Q6H PRN Administration FEVER Albuterol/Ipratropium 1 amp 09/20/19 12:15 Duoneb - NEB Q6H PRN SHORTNESS OF BREATH Allopurinol 300 mg 09/21/19 10:00 09/21/19 11:54 Zyloprim - PO 300 mg DAILY [facility] Administration Atorvastatin Calcium 40 mg 09/20/19 22:00 09/20/19 22:34 Lipitor - PO 40 mg HS [facility] Administration Escitalopram Oxalate 10 mg 09/21/19 10:00 09/21/19 11:54 Lexapro - PO 10 mg DAILY [facility] Administration Furosemide 40 mg 09/21/19 10:00 09/21/19 12:02 Lasix Injection - IVPUSH Not Given DAILY [facility] Dextrose/Sodium Chloride 1,000 mls @ 75 mls/hr 09/21/19 13:30 D5-1/2ns - IV ASDIR [facility] Levothyroxine Sodium 75 mcg 09/21/19 07:00 09/21/19 06:21 Synthroid - PO 75 mcg DAILY@0700 [facility] Administration Losartan Potassium 25 mg 09/21/19 10:00 09/21/19 12:02 Cozaar - PO Not Given DAILY [facility] Pantoprazole Sodium 40 mg 09/21/19 10:00 09/21/19 11:54 Protonix - PO 40 mg DAILY [facility] Administration Potassium Chloride 10 meq 09/21/19 10:00 09/21/19 11:53 K-Dur - PO 10 meq DAILY [facility] Administration Valacyclovir HCl 500 mg 09/21/19 10:00 09/21/19 11:54 Valtrex - PO 500 mg DAILY [facility] Administration ASSESSMENT/PLAN: 74 year old female with PMH HTN, HLD, CAD s/p coronary artery stenting, GERD, multiple myeloma (chemo; radiation directed at abdomen), poor LV compliance on Lasix, rectal hemorrhoids presented to ED for diarrhea x2 days associated with generalized weakness, ROGERS. Heme/Onc was consulted because of the patient's history of multiple myeloma. Multiple Myeloma -has received numerous treatments -states she takes a chemotherapy pill whose name she cannot recall and gets radiation to her abdomen alternating sides for about 20 sessions so far -currently likely experiencing adverse effect of chemotherapy Hypotension -pt states she typically has low BP -SBP presently in the high 80s -pt receiving fluid -lungs clear, legs with edema -low threshold for escalating if BP worsens in spite of cautious fluid resuscitation Tachypnea -on O2 -lungs clear to auscultation Dispo: We will continue to follow the patient. Thank you for this consultative opportunity. Visit type - Emergency Visit Emergency Visit: No - New Patient This patient is new to me today: Yes Date on this admission: 09/22/19 - Critical Care Critical Care patient: No ATTENDING PHYSICIAN STATEMENT I saw and evaluated the patient. I reviewed the resident's note and discussed the case with the resident. I agree with the resident's findings and plan as documented. SUBJECTIVE: OBJECTIVE: ASSESSMENT AND PLAN:
--- NOTE | 2019-09-21 16:37 | PN ---
Teaching Attending Note Name of Resident: Buddy Gallegos ATTENDING PHYSICIAN STATEMENT I saw and evaluated the patient. I reviewed the resident's note and discussed the case with the resident. I agree with the resident's findings and plan as documented. SUBJECTIVE: Patient seen and examined 74 year old female enters with anorexia, weakness, nausea, episode of blood per rectum , and low grade temp. Has SOB and dyspnea. Has Chest X-ray with LLL atelectasis and/or infiltrate. Has UTI with strep. History of multiple myeloma and amyloid on cytoxan, velcade and decadron. History of CHF, HBP, HPL Last Vital Signs Temp Pulse Resp BP Pulse Ox 99.9 F H 91 H 20 90/48 L 96 09/21/19 16:38 09/21/19 16:39 09/21/19 16:39 09/21/19 16:39 09/21/19 09:00 HEENT: ZOILA, EOM Intact Oropharynx: No thrush, No mucositis Neck: Supple Nodes: Without adenopathy Breasts: Without masses Cor: RSR, No murmurs, No gallops Lungs: diminished breath sounds some egophony LLL Abd: Soft, Normal bowel sounds, No organomegaly Ext:LE edema Skin: No rashes, Integument intact Current Medications Generic Name Dose Route Start Last Admin Trade Name Freq PRN Reason Stop Dose Admin Acetaminophen 650 mg 09/20/19 22:25 09/21/19 13:43 Tylenol - PO 650 mg Q6H PRN Administration FEVER Albuterol/Ipratropium 1 amp 09/20/19 12:15 Duoneb - NEB Q6H PRN SHORTNESS OF BREATH Allopurinol 300 mg 09/21/19 10:00 09/21/19 11:54 Zyloprim - PO 300 mg DAILY [facility] Administration Atorvastatin Calcium 40 mg 09/20/19 22:00 09/20/19 22:34 Lipitor - PO 40 mg HS [facility] Administration Escitalopram Oxalate 10 mg 09/21/19 10:00 09/21/19 11:54 Lexapro - PO 10 mg DAILY [facility] Administration Furosemide 40 mg 09/21/19 10:00 09/21/19 12:02 Lasix Injection - IVPUSH Not Given DAILY [facility] Dextrose/Sodium Chloride 1,000 mls @ 75 mls/hr 09/21/19 13:30 09/21/19 13:43 D5-1/2ns - IV 75 mls/hr ASDIR [facility] Administration Levothyroxine Sodium 75 mcg 09/21/19 07:00 09/21/19 06:21 Synthroid - PO 75 mcg DAILY@0700 [facility] Administration Losartan Potassium 25 mg 09/21/19 10:00 09/21/19 12:02 Cozaar - PO Not Given DAILY [facility] Pantoprazole Sodium 40 mg 09/21/19 10:00 09/21/19 11:54 Protonix - PO 40 mg DAILY [facility] Administration Potassium Chloride 10 meq 09/21/19 10:00 09/21/19 11:53 K-Dur - PO 10 meq DAILY [facility] Administration Valacyclovir HCl 500 mg 09/21/19 10:00 09/21/19 11:54 Valtrex - PO 500 mg DAILY [facility] Administration Microbiology 09/20/19 06:26 Urine - Urine Clean Catch Urine Culture - Final Strep Agalactiae Group B 09/20/19 04:16 Blood - Peripheral Venous Blood Culture - Preliminary NO GROWTH OBTAINED AFTER 24 HOURS, INCUBATION TO CONTINUE FOR 4 DAYS. CBC, BMP 09/21/19 05:31 09/21/19 05:31 Impression: Multiple Myeloma Amyloid CHF Anemia Fever LLL atelectasis vs infitrate UTI Suggest - antibiotics per ID Hold chemotherpay Hold fluids Hold on GI assessment Monitor CBC OBJECTIVE: ASSESSMENT AND PLAN:
--- NOTE | 2019-09-21 16:38 | PN ---
Teaching Attending Note ATTENDING PHYSICIAN STATEMENT I saw and evaluated the patient. I reviewed the resident's note and discussed the case with the resident. I agree with the resident's findings and plan as documented. SUBJECTIVE: OBJECTIVE: ASSESSMENT AND PLAN:
[2019-09-21] MEDS ORDERED: CEFEPIME HCL/D5W 1 GM/50 ML BAG IVPB SCH (18:15)
[2019-09-21] MEDS ORDERED: DEXTROSE 5%-WATER 100 ML IVPB ONE (18:38)
[2019-09-21] MEDS ORDERED: MEROPENEM 1 GM VIAL (RESTRICTED TO ID) IVPB ONE (18:38)
[2019-09-21] MEDS: MEROPENEM 1 GM in DEXTROSE 5%-WATER 100 ML IVPB SCH ×2 (18:46→22:27)
--- NOTE | 2019-09-21 20:30 | PN ---
Progress Note, Physician - Current Medication List Current Medications: Active Medications Acetaminophen (Tylenol -) 650 mg PO Q6H PRN PRN Reason: FEVER Last Admin: 09/21/19 13:43 Dose: 650 mg Albuterol/Ipratropium (Duoneb -) 1 amp NEB Q6H PRN PRN Reason: SHORTNESS OF BREATH Allopurinol (Zyloprim -) 300 mg PO DAILY [facility] Last Admin: 09/21/19 11:54 Dose: 300 mg Atorvastatin Calcium (Lipitor -) 40 mg PO HS [facility] Last Admin: 09/20/19 22:34 Dose: 40 mg Escitalopram Oxalate (Lexapro -) 10 mg PO DAILY [facility] Last Admin: 09/21/19 11:54 Dose: 10 mg Furosemide (Lasix Injection -) 40 mg IVPUSH DAILY [facility] Last Admin: 09/21/19 12:02 Dose: Not Given Meropenem 1 gm/ Dextrose 100 mls @ 200 mls/hr IVPB BID [facility] Last Admin: 09/21/19 18:46 Dose: 200 mls/hr Levothyroxine Sodium (Synthroid -) 75 mcg PO DAILY@0700 [facility] Last Admin: 09/21/19 06:21 Dose: 75 mcg Losartan Potassium (Cozaar -) 25 mg PO DAILY [facility] Last Admin: 09/21/19 12:02 Dose: Not Given Pantoprazole Sodium (Protonix -) 40 mg PO DAILY [facility] Last Admin: 09/21/19 11:54 Dose: 40 mg Potassium Chloride (K-Dur -) 10 meq PO DAILY [facility] Last Admin: 09/21/19 11:53 Dose: 10 meq Valacyclovir HCl (Valtrex -) 500 mg PO DAILY [facility] Last Admin: 09/21/19 11:54 Dose: 500 mg - Objective Vital Signs: Vital Signs Temperature 99.2 F 09/21/19 18:00 Pulse Rate 95 H 09/21/19 18:00 Respiratory Rate 19 09/21/19 18:00 Blood Pressure 82/57 L 09/21/19 18:00 O2 Sat by Pulse Oximetry (%) 96 09/21/19 09:00 Labs: CBC, BMP 09/21/19 05:31 09/21/19 05:31 INR, PTT INR 1.16 (0.83-1.09) H 09/20/19 04:16
[2019-09-21] MEDS: ATORVASTATIN CA 40 MG TABLET (FP) PO SCH (21:32)
[2019-09-22] MEDS: ALBUTEROL SO4 2.5/IPRATROPIUM 0.5 INH SOL 3 ML VIAL.NEB. NEB PRN (01:15)
[2019-09-22] MEDS: LEVOTHYROXINE NA 75 MCG TABLET (FP) PO SCH (06:13)
[2019-09-22 08:32] LABS: BASO % 1.1 % (0-2.0); EOS % 0.3 % (0-4.5); HEMATOCRIT 25.9 % (32.4-45.2); HEMOGLOBIN 8.5 GM/dL (10.7-15.3); LYMPH % 22.9 % (8-40); MCH 32.7 pg (25.7-33.7); MCHC 32.7 g/dl (32.0-36.0); MEAN CELL VOLUME 100.3 fl (80-96); MEAN PLT VOLUME 10.2 fl (7.5-11.1); MONO % 7.4 % (3.8-10.2); NEUT % 68.3 % (42.8-82.8); PLATELET COUNT 137 K/MM3 (134-434); RBC 2.58 M/mm3 (3.60-5.2); WHITE BLOOD COUNT 2.7 K/mm3 (4.0-10.0)
[2019-09-22 08:44] LABS: ALBUMIN 1.1 g/dl (3.4-5.0); BILIRUBIN,TOTAL 0.3 mg/dL (0.2-1); CALCIUM 8.1 mg/dL (8.5-10.1); CREATININE 1.1 mg/dL (0.55-1.3); POTASSIUM 4.6 mmol/L (3.5-5.1)
[2019-09-22] MEDS ORDERED: MEROPENEM 1 GM VIAL (RESTRICTED TO ID) IVPB ONE ×2 (09:39→22:02)
[2019-09-22] MEDS ORDERED: DEXTROSE 5%-WATER 100 ML IVPB ONE ×2 (09:39→22:02)
[2019-09-22] MEDS: ALLOPURINOL 300 MG TABLET (FP) PO SCH (09:47)
[2019-09-22] MEDS: valACYclovir HCL 500 MG TABLET (FP) PO SCH (09:47)
[2019-09-22] MEDS: POTASSIUM CHLORIDE TABS 10 MEQ TABLET.ER (FP) PO SCH (09:47)
[2019-09-22] MEDS: ESCITALOPRAM OXALATE 10 MG TABLET (FP) PO SCH (09:47)
[2019-09-22] MEDS: PANTOPRAZOLE 40 MG TABLET (FP) PO SCH (09:47)
[2019-09-22] MEDS: MEROPENEM 1 GM in DEXTROSE 5%-WATER 100 ML IVPB SCH ×2 (09:48→22:12)
--- NOTE | 2019-09-22 10:43 | PN ---
Progress Note, Physician History of Present Illness: pulmonary alert,comfortable,dyspnea improving,still feeling weak. - Current Medication List Current Medications: Active Medications Acetaminophen (Tylenol -) 650 mg PO Q6H PRN PRN Reason: FEVER Last Admin: 09/21/19 13:43 Dose: 650 mg Albuterol/Ipratropium (Duoneb -) 1 amp NEB Q6H PRN PRN Reason: SHORTNESS OF BREATH Last Admin: 09/22/19 01:15 Dose: 1 amp Allopurinol (Zyloprim -) 300 mg PO DAILY [facility] Last Admin: 09/22/19 09:47 Dose: 300 mg Atorvastatin Calcium (Lipitor -) 40 mg PO HS [facility] Last Admin: 09/21/19 21:32 Dose: 40 mg Escitalopram Oxalate (Lexapro -) 10 mg PO DAILY [facility] Last Admin: 09/22/19 09:47 Dose: 10 mg Furosemide (Lasix Injection -) 40 mg IVPUSH DAILY [facility] Last Admin: 09/21/19 12:02 Dose: Not Given Meropenem 1 gm/ Dextrose 100 mls @ 200 mls/hr IVPB BID [facility] Last Admin: 09/22/19 09:48 Dose: 200 mls/hr Levothyroxine Sodium (Synthroid -) 75 mcg PO DAILY@0700 [facility] Last Admin: 09/22/19 06:13 Dose: 75 mcg Pantoprazole Sodium (Protonix -) 40 mg PO DAILY [facility] Last Admin: 09/22/19 09:47 Dose: 40 mg Potassium Chloride (K-Dur -) 10 meq PO DAILY [facility] Last Admin: 09/22/19 09:47 Dose: 10 meq Valacyclovir HCl (Valtrex -) 500 mg PO DAILY [facility] Last Admin: 09/22/19 09:47 Dose: 500 mg - Objective Vital Signs: Vital Signs Temperature 99.2 F 09/22/19 10:00 Pulse Rate 89 09/22/19 10:00 Respiratory Rate 18 09/22/19 10:00 Blood Pressure 97/60 09/22/19 10:00 O2 Sat by Pulse Oximetry (%) 98 09/22/19 09:00 Constitutional: Yes: Well Nourished, Calm Eyes: Yes: WNL HENT: Yes: WNL Neck: Yes: WNL Cardiovascular: Yes: Regular Rate and Rhythm, S1, S2 Respiratory: Yes: Rales (bibasilar rales) Gastrointestinal: Yes: Normal Bowel Sounds, Soft Extremities: Yes: WNL Edema: No Labs: CBC, BMP 09/22/19 07:45 09/22/19 07:45 Problem List - Problems (1) Anasarca Code(s): R60.1 - GENERALIZED EDEMA (2) Fluid overload Code(s): E87.70 - FLUID OVERLOAD, UNSPECIFIED (3) Hypoxia Code(s): R09.02 - HYPOXEMIA (4) Weakness Code(s): R53.1 - WEAKNESS (5) ASHD (arteriosclerotic heart disease) Code(s): I25.10 - ATHSCL HEART DISEASE OF [place] CORONARY ARTERY W/O ANG PCTRS (6) Acute exacerbation of CHF (congestive heart failure) Code(s): I50.9 - HEART FAILURE, UNSPECIFIED (7) Acute on chronic systolic CHF (congestive heart failure) Code(s): I50.23 - ACUTE ON CHRONIC SYSTOLIC (CONGESTIVE) HEART FAILURE (8) Adult onset hypothyroidism Code(s): E03.8 - OTHER SPECIFIED HYPOTHYROIDISM (9) Anemia Code(s): D64.9 - ANEMIA, UNSPECIFIED (10) CKD (chronic kidney disease) Code(s): N18.9 - CHRONIC KIDNEY DISEASE, UNSPECIFIED (11) Elevated troponin Code(s): R74.8 - ABNORMAL LEVELS OF OTHER SERUM ENZYMES (12) HLD (hyperlipidemia) Code(s): E78.5 - HYPERLIPIDEMIA, UNSPECIFIED Qualifiers: Hyperlipidemia type: unspecified Qualified Code(s): E78.5 - Hyperlipidemia , unspecified (13) HTN (hypertension) Code(s): I10 - ESSENTIAL (PRIMARY) HYPERTENSION Qualifiers: Hypertension type: unspecified Qualified Code(s): I10 - Essential (primary ) hypertension (14) History of heart artery stent Code(s): Z95.5 - PRESENCE OF CORONARY ANGIOPLASTY IMPLANT AND GRAFT (15) Multiple myeloma Code(s): C90.00 - MULTIPLE MYELOMA NOT HAVING ACHIEVED REMISSION Qualifiers: Multiple myeloma remission status: not in remission Qualified Code(s): C90.00 - Multiple myeloma not having achieved remission Assessment/Plan IMP ACUTE HYPOXEMIC RESPIRATORY FAILURE ACUTE ON CHRONIC SYSTOLIC/DIASTOLIC HF SEVERE LV DYSFUNCTION BILATERAL PLEURAL EFFUSIONS + TROPONIN MULTIPLE MYELOMA ON CHEMO/RT HTN ASHD S/O NSTEMI,S/P [place] ANEMIA RECTAL BLEED HYPOTHYROID HLD PLAN LASIX O2 DAILY WTS STRICT I+OS MONITOR LYTES,H+H NORMAL TRANSFUSION THRESHOLD TREND TROPONINS F/U CHEST X-RAYS ABX PER ID DR GREY Problem List - Problems (1) Anasarca Code(s): R60.1 - GENERALIZED EDEMA (2) Fluid overload Code(s): E87.70 - FLUID OVERLOAD, UNSPECIFIED (3) Hypoxia Code(s): R09.02 - HYPOXEMIA (4) Weakness Code(s): R53.1 - WEAKNESS (5) ASHD (arteriosclerotic heart disease) Code(s): I25.10 - ATHSCL HEART DISEASE OF [place] CORONARY ARTERY W/O ANG PCTRS (6) Acute exacerbation of CHF (congestive heart failure) Code(s): I50.9 - HEART FAILURE, UNSPECIFIED (7) Acute on chronic systolic CHF (congestive heart failure) Code(s): I50.23 - ACUTE ON CHRONIC SYSTOLIC (CONGESTIVE) HEART FAILURE (8) Adult onset hypothyroidism Code(s): E03.8 - OTHER SPECIFIED HYPOTHYROIDISM (9) Anemia Code(s): D64.9 - ANEMIA, UNSPECIFIED (10) CKD (chronic kidney disease) Code(s): N18.9 - CHRONIC KIDNEY DISEASE, UNSPECIFIED (11) Elevated troponin Code(s): R74.8 - ABNORMAL LEVELS OF OTHER SERUM ENZYMES (12) HLD (hyperlipidemia) Code(s): E78.5 - HYPERLIPIDEMIA, UNSPECIFIED Qualifiers: Hyperlipidemia type: unspecified Qualified Code(s): E78.5 - Hyperlipidemia , unspecified (13) HTN (hypertension) Code(s): I10 - ESSENTIAL (PRIMARY) HYPERTENSION Qualifiers: Hypertension type: unspecified Qualified Code(s): I10 - Essential (primary ) hypertension (14) History of heart artery stent Code(s): Z95.5 - PRESENCE OF CORONARY ANGIOPLASTY IMPLANT AND GRAFT (15) Multiple myeloma Code(s): C90.00 - MULTIPLE MYELOMA NOT HAVING ACHIEVED REMISSION Qualifiers: Multiple myeloma remission status: not in remission Qualified Code(s): C90.00 - Multiple myeloma not having achieved remission
[2019-09-22] MEDS: FUROSEMIDE 40 MG/4 ML INJECTABLE VIAL IVPUSH SCH (12:00)
--- NOTE | 2019-09-22 14:13 | PN ---
Progress Note, Physician History of Present Illness: feels much better today tired spiked fevers last night - Current Medication List Current Medications: Active Medications Acetaminophen (Tylenol -) 650 mg PO Q6H PRN PRN Reason: FEVER Last Admin: 09/21/19 13:43 Dose: 650 mg Albuterol/Ipratropium (Duoneb -) 1 amp NEB Q6H PRN PRN Reason: SHORTNESS OF BREATH Last Admin: 09/22/19 01:15 Dose: 1 amp Allopurinol (Zyloprim -) 300 mg PO DAILY [facility] Last Admin: 09/22/19 09:47 Dose: 300 mg Atorvastatin Calcium (Lipitor -) 40 mg PO HS [facility] Last Admin: 09/21/19 21:32 Dose: 40 mg Escitalopram Oxalate (Lexapro -) 10 mg PO DAILY [facility] Last Admin: 09/22/19 09:47 Dose: 10 mg Furosemide (Lasix Injection -) 40 mg IVPUSH DAILY [facility] Last Admin: 09/21/19 12:02 Dose: Not Given Meropenem 1 gm/ Dextrose 100 mls @ 200 mls/hr IVPB BID [facility] Last Admin: 09/22/19 09:48 Dose: 200 mls/hr Levothyroxine Sodium (Synthroid -) 75 mcg PO DAILY@0700 [facility] Last Admin: 09/22/19 06:13 Dose: 75 mcg Pantoprazole Sodium (Protonix -) 40 mg PO DAILY [facility] Last Admin: 09/22/19 09:47 Dose: 40 mg Potassium Chloride (K-Dur -) 10 meq PO DAILY [facility] Last Admin: 09/22/19 09:47 Dose: 10 meq Valacyclovir HCl (Valtrex -) 500 mg PO DAILY [facility] Last Admin: 09/22/19 09:47 Dose: 500 mg - Objective Vital Signs: Vital Signs Temperature 99.2 F 09/22/19 10:00 Pulse Rate 89 09/22/19 10:00 Respiratory Rate 18 09/22/19 10:00 Blood Pressure 97/60 09/22/19 10:00 O2 Sat by Pulse Oximetry (%) 98 09/22/19 09:00 Constitutional: Yes: No Distress, Calm Cardiovascular: Yes: S1, S2 Respiratory: Yes: Regular, CTA Bilaterally Gastrointestinal: Yes: Normal Bowel Sounds, Soft Musculoskeletal: Yes: WNL Extremities: Yes: WNL Neurological: Yes: Alert, Oriented Psychiatric: Yes: Alert, Oriented Labs: CBC, BMP 09/22/19 07:45 09/22/19 07:45 INR, PTT INR 1.16 (0.83-1.09) H 09/20/19 04:16 Assessment/Plan Problem List - Problems (1) Anasarca Code(s): R60.1 - GENERALIZED EDEMA (2) Fluid overload Code(s): E87.70 - FLUID OVERLOAD, UNSPECIFIED (3) Hypoxia Code(s): R09.02 - HYPOXEMIA (4) Weakness Code(s): R53.1 - WEAKNESS (5) ASHD (arteriosclerotic heart disease) Code(s): I25.10 - ATHSCL HEART DISEASE OF [place] CORONARY ARTERY W/O ANG PCTRS (6) Acute exacerbation of CHF (congestive heart failure) Code(s): I50.9 - HEART FAILURE, UNSPECIFIED (7) Acute on chronic systolic CHF (congestive heart failure) Code(s): I50.23 - ACUTE ON CHRONIC SYSTOLIC (CONGESTIVE) HEART FAILURE (8) Adult onset hypothyroidism Code(s): E03.8 - OTHER SPECIFIED HYPOTHYROIDISM (9) Anemia Code(s): D64.9 - ANEMIA, UNSPECIFIED (10) CKD (chronic kidney disease) Code(s): N18.9 - CHRONIC KIDNEY DISEASE, UNSPECIFIED (11) Elevated troponin Code(s): R74.8 - ABNORMAL LEVELS OF OTHER SERUM ENZYMES (12) HLD (hyperlipidemia) Code(s): E78.5 - HYPERLIPIDEMIA, UNSPECIFIED Qualifiers: Hyperlipidemia type: unspecified Qualified Code(s): E78.5 - Hyperlipidemia , unspecified (13) HTN (hypertension) Code(s): I10 - ESSENTIAL (PRIMARY) HYPERTENSION Qualifiers: Hypertension type: unspecified Qualified Code(s): I10 - Essential (primary ) hypertension (14) History of heart artery stent Code(s): Z95.5 - PRESENCE OF CORONARY ANGIOPLASTY IMPLANT AND GRAFT (15) Multiple myeloma Code(s): C90.00 - MULTIPLE MYELOMA NOT HAVING ACHIEVED REMISSION Qualifiers: Multiple myeloma remission status: not in remission Qualified Code(s): C90.00 - Multiple myeloma not having achieved remission uti Assessment/Plan continue abx monitor for fever rest as per the team
--- NOTE | 2019-09-22 17:58 | CONS ---
PULMONARY CONSULTATION DATE OF CONSULTATION: 09/21/2019 REFERRING PHYSICIAN: Paulette Puckett MD HISTORY: Patient is a 74-year-old black female with a past medical history of hypertension, hyperlipidemia, ASHD status post coronary stenting November 2018, GERD, multiple myeloma, chemotherapy, history of radiation to abdomen, mild systolic CHF, rectal hemorrhoids. Admitted to [facility] on September 20 with complaint of 2-day history of diarrhea, generalized weakness, and dyspnea on exertion. Patient denied any complaint of chest pain, nausea, or vomiting. She states that she had worsening diarrhea for 2 days prior to admission and rectal bleeding x2 on toilet paper mixed with stool, which has since resolved. Patient also complained of weakness and progressive dyspnea on exertion at which time she presented to the emergency room. In the ER, she was noted to be hypoxemic and started on supplemental O2. She was felt to have acute on chronic CHF. She was started on IV Lasix. Patient was also noted on echocardiogram to have severe left ventricular systolic dysfunction with an ejection fraction of 20% as well as a diastolic dysfunction grade 2. She was evaluated by Dr. Burgess for the above. Patient has a history of smoking. Quit many years ago. There is no history of occupational exposure to chemicals or fumes. She denies any history of COPD or asthma in the past. PAST MEDICAL HISTORY: Again includes ASHD status post stent November 2017, hypertension, hyperlipidemia, multiple myeloma, chemotherapy, RT, LV dysfunction, congestive heart failure, rectal hemorrhoids, chronic kidney disease, depression, hypothyroidism, and status post KS and non-ST KS. CURRENT MEDICATIONS: Include Tylenol, Lexapro, Zyloprim, DuoNeb, Lipitor, Lasix , Valtrex, Protonix, K-Dur, and Synthroid. PHYSICAL EXAMINATION: General: Patient is a well-developed, well-nourished female awake, alert in no acute distress. Vital Signs: Blood pressure is 102/54, respiratory rate is 18, O2 saturation is 96% on 2 L. She is afebrile. HEENT: Normocephalic, atraumatic. Neck: Supple. Heart: Regular with S1, S2. Chest: She has bibasilar crackles. Abdomen: Soft. Bowel sounds are positive. Extremities: No cyanosis or edema. LABORATORIES: WBC 3.3, hemoglobin 8.3, hematocrit 25.9 with a platelet count of 132,000, INR 1.16. Blood gas; pH 7.42, PCO2 of 32, PO2 of 53, bicarbonate 20, saturation 86.1. Chemistry; BUN 44, creatinine 1.2. Troponin 0.11. Cardiomegaly. Increased markings at the bases. Abdominopelvis CT. Bilateral pleural effusions, bilateral atelectasis. Edematous changes throughout the subcutaneous tissues of the abdomen and pelvis. IMPRESSION: Acute hypoxemic respiratory failure secondary to: 1. Acute on chronic systolic, diastolic congestive heart failure. 2. Severe left ventricular dysfunction. 3. Bilateral pleural effusions. 4. Positive troponins. 5. Multiple myeloma on chemotherapy and radiation therapy. 6. Hypertension. 7. Arteriosclerotic heart disease status post non-ST elevation myocardial infarction status post stents. 8. Anemia. 9. Rectal bleed. 10. Hypothyroidism. 11. Hyperlipidemia. PLAN: Subcutaneous Lasix. Daily weights. Supplemental O2s. Strict inputs and outputs. Monitor electrolytes. Hemoglobin and hematocrit. Normal transfusion threshold. Trend troponins. Follow up chest x-rays. ROSSANA GREY M.D. [id number] MTDD
[2019-09-22] MEDS: ACETAMINOPHEN 325 MG TABLET (FP) PO PRN (18:55)
--- NOTE | 2019-09-22 20:58 | PN ---
Progress Note, Physician History of Present Illness: Pt has been hypotensive - Current Medication List Current Medications: Active Medications Acetaminophen (Tylenol -) 650 mg PO Q6H PRN PRN Reason: FEVER Last Admin: 09/22/19 18:55 Dose: 650 mg Albuterol/Ipratropium (Duoneb -) 1 amp NEB Q6H PRN PRN Reason: SHORTNESS OF BREATH Last Admin: 09/22/19 01:15 Dose: 1 amp Allopurinol (Zyloprim -) 300 mg PO DAILY [facility] Last Admin: 09/22/19 09:47 Dose: 300 mg Atorvastatin Calcium (Lipitor -) 40 mg PO HS [facility] Last Admin: 09/21/19 21:32 Dose: 40 mg Escitalopram Oxalate (Lexapro -) 10 mg PO DAILY [facility] Last Admin: 09/22/19 09:47 Dose: 10 mg Furosemide (Lasix Injection -) 40 mg IVPUSH DAILY [facility] Last Admin: 09/22/19 12:00 Dose: Not Given Meropenem 1 gm/ Dextrose 100 mls @ 200 mls/hr IVPB BID [facility] Last Admin: 09/22/19 09:48 Dose: 200 mls/hr Levothyroxine Sodium (Synthroid -) 75 mcg PO DAILY@0700 [facility] Last Admin: 09/22/19 06:13 Dose: 75 mcg Pantoprazole Sodium (Protonix -) 40 mg PO DAILY [facility] Last Admin: 09/22/19 09:47 Dose: 40 mg Potassium Chloride (K-Dur -) 10 meq PO DAILY [facility] Last Admin: 09/22/19 09:47 Dose: 10 meq Valacyclovir HCl (Valtrex -) 500 mg PO DAILY [facility] Last Admin: 09/22/19 09:47 Dose: 500 mg - Objective Vital Signs: Vital Signs Temperature 99.7 F H 09/22/19 18:00 Pulse Rate 102 H 09/22/19 18:00 Respiratory Rate 19 09/22/19 18:00 Blood Pressure 87/52 L 09/22/19 18:00 O2 Sat by Pulse Oximetry (%) 98 09/22/19 09:00 Neck: Yes: WNL, Supple Cardiovascular: Yes: WNL, Regular Rate and Rhythm Respiratory: Yes: Rales Gastrointestinal: Yes: WNL, Normal Bowel Sounds, Soft Edema: LLE: Trace, RLE: Trace Labs: CBC, BMP 09/22/19 07:45 09/22/19 07:45 INR, PTT INR 1.16 (0.83-1.09) H 09/20/19 04:16 Problem List - Problems (1) Elevated troponin Assessment/Plan: ?Due to demand ischemia Check echo Cardio consult ntoed Code(s): R74.8 - ABNORMAL LEVELS OF OTHER SERUM ENZYMES (2) Acute exacerbation of CHF (congestive heart failure) Assessment/Plan: Cont IV lasix However pt w/ hypotension(pt has a h/o orthostatic hypotension) Monitor electrolytes Code(s): I50.9 - HEART FAILURE, UNSPECIFIED (3) UTI (urinary tract infection) Assessment/Plan: Due to strept agalactiae Cont IV meropenem BC remain negative Code(s): N39.0 - URINARY TRACT INFECTION, SITE NOT SPECIFIED (4) HTN (hypertension) Assessment/Plan: Pt remains hypotension Gentle hydration ?Due to dehydration from diarrhea wc has now resolved Losartan on hold Code(s): I10 - ESSENTIAL (PRIMARY) HYPERTENSION Qualifiers: Hypertension type: unspecified Qualified Code(s): I10 - Essential (primary ) hypertension (5) Multiple myeloma Assessment/Plan: Pt has been receiving chemotx and recently RT As per onco Code(s): C90.00 - MULTIPLE MYELOMA NOT HAVING ACHIEVED REMISSION Qualifiers: Multiple myeloma remission status: not in remission Qualified Code(s): C90.00 - Multiple myeloma not having achieved remission (6) Anemia Assessment/Plan: Due to chronic disease Monitor H/H Code(s): D64.9 - ANEMIA, UNSPECIFIED (7) Diarrhea Assessment/Plan: Now resolved Cause of dehydration/hypotension Code(s): R19.7 - DIARRHEA, UNSPECIFIED Qualifiers: Diarrhea type: unspecified type Qualified Code(s): R19.7 - Diarrhea, unspecified (8) HLD (hyperlipidemia) Assessment/Plan: Cont lipitor Code(s): E78.5 - HYPERLIPIDEMIA, UNSPECIFIED Qualifiers: Hyperlipidemia type: unspecified Qualified Code(s): E78.5 - Hyperlipidemia , unspecified (9) Hypothyroidism Assessment/Plan: Cont levothyroxine Check TSH Code(s): E03.9 - HYPOTHYROIDISM, UNSPECIFIED Qualifiers: Hypothyroidism type: acquired Qualified Code(s): E03.9 - Hypothyroidism, unspecified (10) CAD (coronary artery disease) Code(s): I25.10 - ATHSCL HEART DISEASE OF [place] CORONARY ARTERY W/O ANG PCTRS Qualifiers: (11) Depression Assessment/Plan: Cont lexapro Code(s): F32.9 - MAJOR DEPRESSIVE DISORDER, SINGLE EPISODE, UNSPECIFIED (12) History of heart artery stent Code(s): Z95.5 - PRESENCE OF CORONARY ANGIOPLASTY IMPLANT AND GRAFT
[2019-09-22] MEDS: ATORVASTATIN CA 40 MG TABLET (FP) PO SCH (22:12)
[2019-09-23] MEDS: LEVOTHYROXINE NA 75 MCG TABLET (FP) PO SCH (06:26)
[2019-09-23 06:53] LABS: BASO % 0.9 % (0-2.0); EOS % 0.3 % (0-4.5); HEMATOCRIT 26.7 % (32.4-45.2); HEMOGLOBIN 8.7 GM/dL (10.7-15.3); LYMPH % 21.7 % (8-40); MCH 32.7 pg (25.7-33.7); MCHC 32.6 g/dl (32.0-36.0); MEAN CELL VOLUME 100.4 fl (80-96); MEAN PLT VOLUME 9.4 fl (7.5-11.1); MONO % 6.8 % (3.8-10.2); NEUT % 70.3 % (42.8-82.8); PLATELET COUNT 142 K/MM3 (134-434); RBC 2.66 M/mm3 (3.60-5.2); RDW 16.7 % (11.6-15.6); WHITE BLOOD COUNT 2.7 K/mm3 (4.0-10.0)
--- NOTE | 2019-09-23 07:00 | PN ---
Progress Note (short form) - Note Progress Note: Patient seen and examiend Shortness of breath improved AFVSS Cor: RSR, No murmurs, No gallops Lungs: decreased at bases Abd: Soft, Normal bowel sounds, No organomegaly Ext:No significant edema Labs/Meds reviewed A/P Multiple Myeloma Amyloid CHF Anemia Fever LLL atelectasis vs infitrate UTI On meropenem On lasix will follow
[2019-09-23 07:15] LABS: ALBUMIN 1.1 g/dl (3.4-5.0); BILIRUBIN,TOTAL 0.3 mg/dL (0.2-1); BLOOD UREA NITROGEN 39.8 mg/dL (7-18); CALCIUM 8.2 mg/dL (8.5-10.1); CREATININE 1.1 mg/dL (0.55-1.3); POTASSIUM 4.9 mmol/L (3.5-5.1); TOT PROT 6.2 g/dl (6.4-8.2)
--- NOTE | 2019-09-23 09:01 | PN ---
Progress Note, Physician Chief Complaint: Pt A&O; weak; easily dyspneic. History of Present Illness: 74 year old black female with PMH HTN, HLD, CAD s/p coronary artery stenting, GERD, multiple myeloma (chemo; radiation directed at abdomen), ? "mild" systolic CHF, on Lasix, rectal hemorrhoids, now presented to ED for diarrhea x2 days associated with generalized weakness, ROGERS. Pt reported she has had loose, watery diarrhea x2 days, and prior to that he had rectal bleeding x2 days (on toilet paper and mixed in stool) that self resolved. She reported she only noticed the bleeding because it was on the toilet paper, as she did not have abdominal or rectal pain. Pt reported generalized weakness and ROGERS, which prompted her to come to the ED. Pt denied nausea, vomiting, fever, abdominal pain, chest pain, increased LE swelling. She reported she believed her lower extremity swelling is actually improving. She also reported noticing a new "rash " to her right hip since last week. - Current Medication List Current Medications: Active Medications Acetaminophen (Tylenol -) 650 mg PO Q6H PRN PRN Reason: FEVER Last Admin: 09/22/19 18:55 Dose: 650 mg Albuterol/Ipratropium (Duoneb -) 1 amp NEB Q6H PRN PRN Reason: SHORTNESS OF BREATH Last Admin: 09/22/19 01:15 Dose: 1 amp Allopurinol (Zyloprim -) 300 mg PO DAILY [facility] Last Admin: 09/22/19 09:47 Dose: 300 mg Atorvastatin Calcium (Lipitor -) 40 mg PO HS [facility] Last Admin: 09/22/19 22:12 Dose: 40 mg Escitalopram Oxalate (Lexapro -) 10 mg PO DAILY [facility] Last Admin: 09/22/19 09:47 Dose: 10 mg Furosemide (Lasix Injection -) 40 mg IVPUSH DAILY [facility] Last Admin: 09/22/19 12:00 Dose: Not Given Meropenem 1 gm/ Dextrose 100 mls @ 200 mls/hr IVPB BID [facility] Last Admin: 09/22/19 22:12 Dose: 200 mls/hr Levothyroxine Sodium (Synthroid -) 75 mcg PO DAILY@0700 [facility] Last Admin: 09/23/19 06:26 Dose: 75 mcg Losartan Potassium (Cozaar -) 25 mg PO DAILY [facility] Pantoprazole Sodium (Protonix -) 40 mg PO DAILY [facility] Last Admin: 09/22/19 09:47 Dose: 40 mg Potassium Chloride (K-Dur -) 10 meq PO DAILY [facility] Last Admin: 09/22/19 09:47 Dose: 10 meq Valacyclovir HCl (Valtrex -) 500 mg PO DAILY [facility] Last Admin: 09/22/19 09:47 Dose: 500 mg - Objective Vital Signs: Vital Signs Temperature 98.4 F 09/23/19 06:00 Pulse Rate 101 H 09/23/19 06:00 Respiratory Rate 18 09/23/19 06:00 Blood Pressure 101/58 L 09/23/19 06:00 O2 Sat by Pulse Oximetry (%) 98 09/22/19 21:00 Constitutional: Yes: Anxious Eyes: Yes: WNL HENT: Yes: WNL Cardiovascular: Yes: S1 (split), S2 Respiratory: Yes: Diminished Gastrointestinal: Yes: Soft ...Rectal Exam: Yes: Deferred Genitourinary: No: Anuria Breast(s): Yes: WNL Musculoskeletal: Yes: Muscle Weakness Extremities: Yes: Cool Edema: No Peripheral Pulses WNL: No Peripheral Pulses: Left Doralis Pedis: 1+, Right Dorsalis Pedis: 1+ Integumentary: Yes: WNL Neurological: Yes: Alert, Oriented, Weakness Psychiatric: Yes: WNL, Alert, Oriented Labs: CBC, BMP 09/23/19 06:05 09/23/19 06:05 INR, PTT INR 1.16 (0.83-1.09) H 09/20/19 04:16 Abnormal Lab Results 10/11/19 10/11/19 10/11/19 05:30 05:30 05:30 RBC 2.52 L Hgb 7.8 L Hct 23.4 L RDW 18.2 H Neutrophils % 90.2 H Neutrophils % (Manual) Lymphocytes % 2.9 L D Lymphocytes % (Manual) Monocytes % (Manual) PTT (Actin FS) 25.1 L Sodium 124 L Potassium 5.7 H Chloride 87 L BUN 70.3 H Creatinine 3.1 H Random Glucose 108 H Calcium 7.9 L Phosphorus 6.8 H AST 78 H ALT 158 H Troponin I Albumin 1.5 L 10/11/19 10/11/19 13:30 13:30 RBC 2.53 L Hgb 7.9 L Hct 23.6 L RDW 18.1 H Neutrophils % 93.1 H Neutrophils % (Manual) 96.0 H Lymphocytes % 2.3 L D Lymphocytes % (Manual) 1.0 L Monocytes % (Manual) 3 L PTT (Actin FS) Sodium Potassium Chloride BUN Creatinine Random Glucose Calcium Phosphorus AST ALT Troponin I 5.41 H* Albumin - ....Imaging Chest X-ray: Image Reviewed EKG: Image Reviewed Problem List - Problems (1) Hypoxia Code(s): R09.02 - HYPOXEMIA (2) Weakness Code(s): R53.1 - WEAKNESS (3) ASHD (arteriosclerotic heart disease) Code(s): I25.10 - ATHSCL HEART DISEASE OF [place] CORONARY ARTERY W/O ANG PCTRS (4) Acute on chronic systolic CHF (congestive heart failure) Assessment/Plan: On losartan (restart) and furosemide. F/u BNP, BUN/Cr, electrolytes, daily weight, Is and Os. ECHO: severely reduced LVEF; small pericardial effusion which is not hemodynamically significant; pleural effuson. Plan to start carvedilol or metoprolol if BP and HR allow. Code(s): I50.23 - ACUTE ON CHRONIC SYSTOLIC (CONGESTIVE) HEART FAILURE (5) Adult onset hypothyroidism Assessment/Plan: elevated TSH; f/u Free T4. Code(s): E03.8 - OTHER SPECIFIED HYPOTHYROIDISM (6) Anxiety Code(s): F41.9 - ANXIETY DISORDER, UNSPECIFIED (7) Elevated troponin Code(s): R74.8 - ABNORMAL LEVELS OF OTHER SERUM ENZYMES (8) HLD (hyperlipidemia) Assessment/Plan: On statin. LDL elevated in March; f/u lipid profile. Code(s): E78.5 - HYPERLIPIDEMIA, UNSPECIFIED Qualifiers: Hyperlipidemia type: unspecified Qualified Code(s): E78.5 - Hyperlipidemia , unspecified (9) HTN (hypertension) Assessment/Plan: On losartan and furosemide. Would start beta savana if remains stable, even if BP is relatively low-normal , given severity of systolic dysfunction. Code(s): I10 - ESSENTIAL (PRIMARY) HYPERTENSION Qualifiers: Hypertension type: unspecified Qualified Code(s): I10 - Essential (primary ) hypertension (10) History of heart artery stent Code(s): Z95.5 - PRESENCE OF CORONARY ANGIOPLASTY IMPLANT AND GRAFT (11) Multiple myeloma Code(s): C90.00 - MULTIPLE MYELOMA NOT HAVING ACHIEVED REMISSION Qualifiers: Multiple myeloma remission status: not in remission Qualified Code(s): C90.00 - Multiple myeloma not having achieved remission (12) Pancytopenia Code(s): D61.818 - OTHER PANCYTOPENIA
[2019-09-23] MEDS: PANTOPRAZOLE 40 MG TABLET (FP) PO SCH (09:12)
[2019-09-23] MEDS: valACYclovir HCL 500 MG TABLET (FP) PO SCH (09:12)
[2019-09-23] MEDS: POTASSIUM CHLORIDE TABS 10 MEQ TABLET.ER (FP) PO SCH (09:12)
[2019-09-23] MEDS: ESCITALOPRAM OXALATE 10 MG TABLET (FP) PO SCH (09:12)
[2019-09-23] MEDS: ALLOPURINOL 300 MG TABLET (FP) PO SCH (09:12)
[2019-09-23] MEDS ORDERED: DEXTROSE 5%-WATER 100 ML IVPB ONE ×2 (09:15→21:28)
[2019-09-23] MEDS ORDERED: MEROPENEM 1 GM VIAL (RESTRICTED TO ID) IVPB ONE ×2 (09:15→21:27)
[2019-09-23] MEDS: MEROPENEM 1 GM in DEXTROSE 5%-WATER 100 ML IVPB SCH ×2 (09:16→21:37)
[2019-09-23] MEDS ORDERED: LISINOPRIL 5 MG TABLET (FP) PO SCH (10:00)
[2019-09-23] MEDS: LOSARTAN POTASSIUM 25 MG TABLET PO SCH (10:49)
--- NOTE | 2019-09-23 12:38 | PN ---
Progress Note, Physician History of Present Illness: 74 year old black female with PMH HTN, HLD, CAD s/p coronary artery stenting, GERD, multiple myeloma (chemo; radiation directed at abdomen), ? "mild" systolic CHF, on Lasix, rectal hemorrhoids, now presented to ED for diarrhea x2 days associated with generalized weakness, ROGERS. Pt reported she has had loose, watery diarrhea x2 days, and prior to that he had rectal bleeding x2 days (on toilet paper and mixed in stool) that self resolved. She reported she only noticed the bleeding because it was on the toilet paper, as she did not have abdominal or rectal pain. Pt reported generalized weakness and ROGERS, which prompted her to come to the ED. Pt denied nausea, vomiting, fever, abdominal pain, chest pain, increased LE swelling. She reported she believed her lower extremity swelling is actually improving. She also reported noticing a new "rash " to her right hip since last week. - Current Medication List Current Medications: Active Medications Acetaminophen (Tylenol -) 650 mg PO Q6H PRN PRN Reason: FEVER Last Admin: 09/22/19 18:55 Dose: 650 mg Albuterol/Ipratropium (Duoneb -) 1 amp NEB Q6H PRN PRN Reason: SHORTNESS OF BREATH Last Admin: 09/22/19 01:15 Dose: 1 amp Allopurinol (Zyloprim -) 300 mg PO DAILY [facility] Last Admin: 09/23/19 09:12 Dose: 300 mg Atorvastatin Calcium (Lipitor -) 40 mg PO HS [facility] Last Admin: 09/22/19 22:12 Dose: 40 mg Escitalopram Oxalate (Lexapro -) 10 mg PO DAILY [facility] Last Admin: 09/23/19 09:12 Dose: 10 mg Furosemide (Lasix Injection -) 40 mg IVPUSH DAILY [facility] Last Admin: 09/22/19 12:00 Dose: Not Given Meropenem 1 gm/ Dextrose 100 mls @ 200 mls/hr IVPB BID [facility] Last Admin: 09/23/19 09:16 Dose: 200 mls/hr Levothyroxine Sodium (Synthroid -) 75 mcg PO DAILY@0700 [facility] Last Admin: 09/23/19 06:26 Dose: 75 mcg Losartan Potassium (Cozaar -) 25 mg PO DAILY [facility] Last Admin: 09/23/19 10:49 Dose: 25 mg Pantoprazole Sodium (Protonix -) 40 mg PO DAILY [facility] Last Admin: 09/23/19 09:12 Dose: 40 mg Potassium Chloride (K-Dur -) 10 meq PO DAILY [facility] Last Admin: 09/23/19 09:12 Dose: 10 meq Valacyclovir HCl (Valtrex -) 500 mg PO DAILY [facility] Last Admin: 09/23/19 09:12 Dose: 500 mg - Objective Vital Signs: Vital Signs Temperature 99.6 F 09/23/19 10:00 Pulse Rate 101 H 09/23/19 10:00 Respiratory Rate 18 09/23/19 10:00 Blood Pressure 93/60 09/23/19 10:47 O2 Sat by Pulse Oximetry (%) 97 09/23/19 09:00 Eyes: Yes: WNL, Conjunctiva Clear, EOM Intact HENT: Yes: WNL, Atraumatic, Normocephalic Neck: Yes: WNL, Supple, Trachea Midline Cardiovascular: Yes: WNL, Regular Rate and Rhythm Respiratory: Yes: WNL, Regular, CTA Bilaterally Gastrointestinal: Yes: WNL, Normal Bowel Sounds Genitourinary: Yes: WNL Musculoskeletal: Yes: WNL Extremities: Yes: WNL Edema: No Integumentary: Yes: WNL Neurological: Yes: WNL, Alert, Oriented ...Motor Strength: WNL Psychiatric: Yes: WNL Labs: CBC, BMP 09/23/19 06:05 09/23/19 06:05 INR, PTT INR 1.16 (0.83-1.09) H 09/20/19 04:16 Assessment/Plan - Problems (1) Hypoxia Code(s): R09.02 - HYPOXEMIA (2) Weakness Code(s): R53.1 - WEAKNESS (3) ASHD (arteriosclerotic heart disease) Code(s): I25.10 - ATHSCL HEART DISEASE OF [place] CORONARY ARTERY W/O ANG PCTRS (4) Acute on chronic systolic CHF (congestive heart failure) Assessment/Plan: On losartan (restart) and furosemide. F/u BNP, BUN/Cr, electrolytes, daily weight, Is and Os. ECHO: severely reduced LVEF; small pericardial effusion which is not hemodynamically significant; pleural effuson. Plan to start carvedilol or metoprolol if BP and HR allow. Code(s): I50.23 - ACUTE ON CHRONIC SYSTOLIC (CONGESTIVE) HEART FAILURE (5) Adult onset hypothyroidism Assessment/Plan: elevated TSH; f/u Free T4. Code(s): E03.8 - OTHER SPECIFIED HYPOTHYROIDISM (6) Anxiety Code(s): F41.9 - ANXIETY DISORDER, UNSPECIFIED (7) Elevated troponin Code(s): R74.8 - ABNORMAL LEVELS OF OTHER SERUM ENZYMES (8) HLD (hyperlipidemia) Assessment/Plan: On statin. LDL elevated in March; f/u lipid profile. Code(s): E78.5 - HYPERLIPIDEMIA, UNSPECIFIED Qualifiers: Hyperlipidemia type: unspecified Qualified Code(s): E78.5 - Hyperlipidemia , unspecified (9) HTN (hypertension) Assessment/Plan: On losartan and furosemide. Would start beta savana if remains stable, even if BP is relatively low-normal , given severity of systolic dysfunction. Code(s): I10 - ESSENTIAL (PRIMARY) HYPERTENSION Qualifiers: Hypertension type: unspecified Qualified Code(s): I10 - Essential (primary ) hypertension (10) History of heart artery stent Code(s): Z95.5 - PRESENCE OF CORONARY ANGIOPLASTY IMPLANT AND GRAFT (11) Multiple myeloma Code(s): C90.00 - MULTIPLE MYELOMA NOT HAVING ACHIEVED REMISSION Qualifiers: Multiple myeloma remission status: not in remission Qualified Code(s): C90.00 - Multiple myeloma not having achieved remission (12) Pancytopenia Code(s): D61.818 - OTHER PANCYTOPENIA
[2019-09-23] MEDS: ALBUTEROL SO4 2.5/IPRATROPIUM 0.5 INH SOL 3 ML VIAL.NEB. NEB PRN ×2 (12:45→20:38)
[2019-09-23] MEDS: FUROSEMIDE 40 MG/4 ML INJECTABLE VIAL IVPUSH SCH (12:48)
--- NOTE | 2019-09-23 12:57 | PN ---
Progress Note, Physician History of Present Illness: PULMONARY ALERT,STILL C/O WEAKNESS,+ SOB. + WT GAIN 6LBS SINCE ADMISSION - Current Medication List Current Medications: Active Medications Acetaminophen (Tylenol -) 650 mg PO Q6H PRN PRN Reason: FEVER Last Admin: 09/22/19 18:55 Dose: 650 mg Albuterol/Ipratropium (Duoneb -) 1 amp NEB Q6H PRN PRN Reason: SHORTNESS OF BREATH Last Admin: 09/22/19 01:15 Dose: 1 amp Allopurinol (Zyloprim -) 300 mg PO DAILY [facility] Last Admin: 09/23/19 09:12 Dose: 300 mg Atorvastatin Calcium (Lipitor -) 40 mg PO HS [facility] Last Admin: 09/22/19 22:12 Dose: 40 mg Escitalopram Oxalate (Lexapro -) 10 mg PO DAILY [facility] Last Admin: 09/23/19 09:12 Dose: 10 mg Furosemide (Lasix Injection -) 40 mg IVPUSH DAILY [facility] Last Admin: 09/23/19 12:48 Dose: Not Given Meropenem 1 gm/ Dextrose 100 mls @ 200 mls/hr IVPB BID [facility] Last Admin: 09/23/19 09:16 Dose: 200 mls/hr Levothyroxine Sodium (Synthroid -) 75 mcg PO DAILY@0700 [facility] Last Admin: 09/23/19 06:26 Dose: 75 mcg Losartan Potassium (Cozaar -) 25 mg PO DAILY [facility] Last Admin: 09/23/19 10:49 Dose: 25 mg Pantoprazole Sodium (Protonix -) 40 mg PO DAILY [facility] Last Admin: 09/23/19 09:12 Dose: 40 mg Potassium Chloride (K-Dur -) 10 meq PO DAILY [facility] Last Admin: 09/23/19 09:12 Dose: 10 meq Valacyclovir HCl (Valtrex -) 500 mg PO DAILY [facility] Last Admin: 09/23/19 09:12 Dose: 500 mg - Objective Vital Signs: Vital Signs Temperature 99.6 F 09/23/19 10:00 Pulse Rate 101 H 09/23/19 10:00 Respiratory Rate 18 09/23/19 10:00 Blood Pressure 98/62 09/23/19 12:45 O2 Sat by Pulse Oximetry (%) 97 09/23/19 09:00 Constitutional: Yes: Well Nourished, Calm Eyes: Yes: WNL HENT: Yes: WNL Neck: Yes: WNL Cardiovascular: Yes: Regular Rate and Rhythm, S1, S2 Respiratory: Yes: Rales (BILATERAL RALES) Gastrointestinal: Yes: Normal Bowel Sounds, Soft Extremities: Yes: WNL Edema: No Labs: CBC, BMP 09/23/19 06:05 09/23/19 06:05 INR, PTT INR 1.16 (0.83-1.09) H 09/20/19 04:16 - ....Imaging Cat Scan: Report Reviewed, Image Reviewed Problem List - Problems (1) Anasarca Code(s): R60.1 - GENERALIZED EDEMA (2) Fluid overload Code(s): E87.70 - FLUID OVERLOAD, UNSPECIFIED (3) Hypoxia Code(s): R09.02 - HYPOXEMIA (4) Weakness Code(s): R53.1 - WEAKNESS (5) ASHD (arteriosclerotic heart disease) Code(s): I25.10 - ATHSCL HEART DISEASE OF [place] CORONARY ARTERY W/O ANG PCTRS (6) Acute exacerbation of CHF (congestive heart failure) Code(s): I50.9 - HEART FAILURE, UNSPECIFIED (7) Acute on chronic systolic CHF (congestive heart failure) Code(s): I50.23 - ACUTE ON CHRONIC SYSTOLIC (CONGESTIVE) HEART FAILURE (8) Adult onset hypothyroidism Code(s): E03.8 - OTHER SPECIFIED HYPOTHYROIDISM (9) Anemia Code(s): D64.9 - ANEMIA, UNSPECIFIED (10) CKD (chronic kidney disease) Code(s): N18.9 - CHRONIC KIDNEY DISEASE, UNSPECIFIED (11) Elevated troponin Code(s): R74.8 - ABNORMAL LEVELS OF OTHER SERUM ENZYMES (12) HLD (hyperlipidemia) Code(s): E78.5 - HYPERLIPIDEMIA, UNSPECIFIED Qualifiers: Hyperlipidemia type: unspecified Qualified Code(s): E78.5 - Hyperlipidemia , unspecified (13) HTN (hypertension) Code(s): I10 - ESSENTIAL (PRIMARY) HYPERTENSION Qualifiers: Hypertension type: unspecified Qualified Code(s): I10 - Essential (primary ) hypertension (14) History of heart artery stent Code(s): Z95.5 - PRESENCE OF CORONARY ANGIOPLASTY IMPLANT AND GRAFT (15) Multiple myeloma Code(s): C90.00 - MULTIPLE MYELOMA NOT HAVING ACHIEVED REMISSION Qualifiers: Multiple myeloma remission status: not in remission Qualified Code(s): C90.00 - Multiple myeloma not having achieved remission Assessment/Plan IMP ACUTE HYPOXEMIC RESPIRATORY FAILURE ACUTE ON CHRONIC SYSTOLIC/DIASTOLIC HF SEVERE LV DYSFUNCTION BILATERAL PLEURAL EFFUSIONS + TROPONIN MULTIPLE MYELOMA ON CHEMO/RT HTN ASHD S/O NSTEMI,S/P [place]LLY ANEMIA RECTAL BLEED HYPOTHYROID HLD PLAN CONSIDER INCREASE LASIX IV TO BID O2 DAILY WTS STRICT I+OS MONITOR LYTES,H+H NORMAL TRANSFUSION THRESHOLD TREND TROPONINS F/U CHEST X-RAYS ABX PER ID DR GREY Problem List - Problems (1) Anasarca Code(s): R60.1 - GENERALIZED EDEMA (2) Fluid overload Code(s): E87.70 - FLUID OVERLOAD, UNSPECIFIED (3) Hypoxia Code(s): R09.02 - HYPOXEMIA (4) Weakness Code(s): R53.1 - WEAKNESS (5) ASHD (arteriosclerotic heart disease) Code(s): I25.10 - ATHSCL HEART DISEASE OF [place] CORONARY ARTERY W/O ANG PCTRS (6) Acute exacerbation of CHF (congestive heart failure) Code(s): I50.9 - HEART FAILURE, UNSPECIFIED (7) Acute on chronic systolic CHF (congestive heart failure) Code(s): I50.23 - ACUTE ON CHRONIC SYSTOLIC (CONGESTIVE) HEART FAILURE (8) Adult onset hypothyroidism Code(s): E03.8 - OTHER SPECIFIED HYPOTHYROIDISM (9) Anemia Code(s): D64.9 - ANEMIA, UNSPECIFIED (10) CKD (chronic kidney disease) Code(s): N18.9 - CHRONIC KIDNEY DISEASE, UNSPECIFIED (11) Elevated troponin Code(s): R74.8 - ABNORMAL LEVELS OF OTHER SERUM ENZYMES (12) HLD (hyperlipidemia) Code(s): E78.5 - HYPERLIPIDEMIA, UNSPECIFIED Qualifiers: Hyperlipidemia type: unspecified Qualified Code(s): E78.5 - Hyperlipidemia , unspecified (13) HTN (hypertension) Code(s): I10 - ESSENTIAL (PRIMARY) HYPERTENSION Qualifiers: Hypertension type: unspecified Qualified Code(s): I10 - Essential (primary ) hypertension (14) History of heart artery stent Code(s): Z95.5 - PRESENCE OF CORONARY ANGIOPLASTY IMPLANT AND GRAFT (15) Multiple myeloma Code(s): C90.00 - MULTIPLE MYELOMA NOT HAVING ACHIEVED REMISSION Qualifiers: Multiple myeloma remission status: not in remission Qualified Code(s): C90.00 - Multiple myeloma not having achieved remission
--- NOTE | 2019-09-23 13:20 | PN ---
Progress Note, Physician History of Present Illness: still not feeling well still sob - Current Medication List Current Medications: Active Medications Acetaminophen (Tylenol -) 650 mg PO Q6H PRN PRN Reason: FEVER Last Admin: 09/22/19 18:55 Dose: 650 mg Albuterol/Ipratropium (Duoneb -) 1 amp NEB Q6H PRN PRN Reason: SHORTNESS OF BREATH Last Admin: 09/22/19 01:15 Dose: 1 amp Allopurinol (Zyloprim -) 300 mg PO DAILY [facility] Last Admin: 09/23/19 09:12 Dose: 300 mg Atorvastatin Calcium (Lipitor -) 40 mg PO HS [facility] Last Admin: 09/22/19 22:12 Dose: 40 mg Escitalopram Oxalate (Lexapro -) 10 mg PO DAILY [facility] Last Admin: 09/23/19 09:12 Dose: 10 mg Furosemide (Lasix Injection -) 40 mg IVPUSH DAILY [facility] Last Admin: 09/23/19 12:48 Dose: Not Given Meropenem 1 gm/ Dextrose 100 mls @ 200 mls/hr IVPB BID [facility] Last Admin: 09/23/19 09:16 Dose: 200 mls/hr Levothyroxine Sodium (Synthroid -) 75 mcg PO DAILY@0700 [facility] Last Admin: 09/23/19 06:26 Dose: 75 mcg Losartan Potassium (Cozaar -) 25 mg PO DAILY [facility] Last Admin: 09/23/19 10:49 Dose: 25 mg Pantoprazole Sodium (Protonix -) 40 mg PO DAILY [facility] Last Admin: 09/23/19 09:12 Dose: 40 mg Potassium Chloride (K-Dur -) 10 meq PO DAILY [facility] Last Admin: 09/23/19 09:12 Dose: 10 meq Valacyclovir HCl (Valtrex -) 500 mg PO DAILY [facility] Last Admin: 09/23/19 09:12 Dose: 500 mg - Objective Vital Signs: Vital Signs Temperature 99.6 F 09/23/19 10:00 Pulse Rate 101 H 09/23/19 10:00 Respiratory Rate 18 09/23/19 10:00 Blood Pressure 98/62 09/23/19 12:45 O2 Sat by Pulse Oximetry (%) 97 09/23/19 09:00 Constitutional: Yes: Calm, Mild Distress Cardiovascular: Yes: S1, S2 Respiratory: Yes: Regular, Poor Air Entry (bases) Gastrointestinal: Yes: Normal Bowel Sounds, Soft Musculoskeletal: Yes: WNL Extremities: Yes: WNL Neurological: Yes: Alert, Oriented Psychiatric: Yes: Alert, Oriented Labs: CBC, BMP 09/23/19 06:05 09/23/19 06:05 INR, PTT INR 1.16 (0.83-1.09) H 09/20/19 04:16 Assessment/Plan Problem List - Problems (1) Anasarca Code(s): R60.1 - GENERALIZED EDEMA (2) Fluid overload Code(s): E87.70 - FLUID OVERLOAD, UNSPECIFIED (3) Hypoxia Code(s): R09.02 - HYPOXEMIA (4) Weakness Code(s): R53.1 - WEAKNESS (5) ASHD (arteriosclerotic heart disease) Code(s): I25.10 - ATHSCL HEART DISEASE OF [place] CORONARY ARTERY W/O ANG PCTRS (6) Acute exacerbation of CHF (congestive heart failure) Code(s): I50.9 - HEART FAILURE, UNSPECIFIED (7) Acute on chronic systolic CHF (congestive heart failure) Code(s): I50.23 - ACUTE ON CHRONIC SYSTOLIC (CONGESTIVE) HEART FAILURE (8) Adult onset hypothyroidism Code(s): E03.8 - OTHER SPECIFIED HYPOTHYROIDISM (9) Anemia Code(s): D64.9 - ANEMIA, UNSPECIFIED (10) CKD (chronic kidney disease) Code(s): N18.9 - CHRONIC KIDNEY DISEASE, UNSPECIFIED (11) Elevated troponin Code(s): R74.8 - ABNORMAL LEVELS OF OTHER SERUM ENZYMES (12) HLD (hyperlipidemia) Code(s): E78.5 - HYPERLIPIDEMIA, UNSPECIFIED Qualifiers: Hyperlipidemia type: unspecified Qualified Code(s): E78.5 - Hyperlipidemia , unspecified (13) HTN (hypertension) Code(s): I10 - ESSENTIAL (PRIMARY) HYPERTENSION Qualifiers: Hypertension type: unspecified Qualified Code(s): I10 - Essential (primary ) hypertension (14) History of heart artery stent Code(s): Z95.5 - PRESENCE OF CORONARY ANGIOPLASTY IMPLANT AND GRAFT (15) Multiple myeloma Code(s): C90.00 - MULTIPLE MYELOMA NOT HAVING ACHIEVED REMISSION Qualifiers: Multiple myeloma remission status: not in remission Qualified Code(s): C90.00 - Multiple myeloma not having achieved remission uti Assessment/Plan continue abx monitor for fever rest as per the team
--- NOTE | 2019-09-23 17:15 | PN ---
Progress Note (short form) - Note Progress Note: Patient seen and examined Less SOB and less dyspneic Last Vital Signs Temp Pulse Resp BP Pulse Ox 98.7 F 87 18 118/67 97 09/23/19 14:00 09/23/19 14:00 09/23/19 14:00 09/23/19 14:00 09/23/19 09:00 HEENT: ZOILA, EOM Intact Cor: RSR, No murmurs, No gallops Lungs: decreased breath sounds bilaterally Abd: Soft, Normal bowel sounds, No organomegaly Ext LEedema Skin: No rashes, Integument intact CBC, BMP 09/23/19 06:05 09/23/19 06:05 Current Medications Generic Name Dose Route Start Last Admin Trade Name Freq PRN Reason Stop Dose Admin Acetaminophen 650 mg 09/20/19 22:25 09/22/19 18:55 Tylenol - PO 650 mg Q6H PRN Administration FEVER Albuterol/Ipratropium 1 amp 09/20/19 12:15 09/23/19 12:45 Duoneb - NEB 1 amp Q6H PRN Administration SHORTNESS OF BREATH Allopurinol 300 mg 09/21/19 10:00 09/23/19 09:12 Zyloprim - PO 300 mg DAILY [facility] Administration Atorvastatin Calcium 40 mg 09/20/19 22:00 09/22/19 22:12 Lipitor - PO 40 mg HS [facility] Administration Escitalopram Oxalate 10 mg 09/21/19 10:00 09/23/19 09:12 Lexapro - PO 10 mg DAILY [facility] Administration Furosemide 40 mg 09/21/19 10:00 09/23/19 12:48 Lasix Injection - IVPUSH Not Given DAILY [facility] Meropenem 1 gm/ Dextrose 100 mls @ 200 mls/hr 09/21/19 18:30 09/23/19 09:16 IVPB 200 mls/hr BID [facility] Administration Levothyroxine Sodium 75 mcg 09/21/19 07:00 09/23/19 06:26 Synthroid - PO 75 mcg DAILY@0700 [facility] Administration Losartan Potassium 25 mg 09/23/19 10:00 09/23/19 10:49 Cozaar - PO 25 mg DAILY [facility] Administration Pantoprazole Sodium 40 mg 09/21/19 10:00 09/23/19 09:12 Protonix - PO 40 mg DAILY [facility] Administration Potassium Chloride 10 meq 09/21/19 10:00 09/23/19 09:12 K-Dur - PO 10 meq DAILY [facility] Administration Valacyclovir HCl 500 mg 09/21/19 10:00 09/23/19 09:12 Valtrex - PO 500 mg DAILY [facility] Administration Impression Myeloma Amyloid CHF Fevers Anemia Leukopenia Plan : Continue antibiotics Gentle diuresis with careful monitoring of BP.
--- NOTE | 2019-09-23 21:10 | PN ---
Progress Note, Physician - Current Medication List Current Medications: Active Medications Acetaminophen (Tylenol -) 650 mg PO Q6H PRN PRN Reason: FEVER Last Admin: 09/22/19 18:55 Dose: 650 mg Albuterol/Ipratropium (Duoneb -) 1 amp NEB Q6H PRN PRN Reason: SHORTNESS OF BREATH Last Admin: 09/23/19 20:38 Dose: 1 amp Allopurinol (Zyloprim -) 300 mg PO DAILY [facility] Last Admin: 09/23/19 09:12 Dose: 300 mg Atorvastatin Calcium (Lipitor -) 40 mg PO HS [facility] Last Admin: 09/22/19 22:12 Dose: 40 mg Escitalopram Oxalate (Lexapro -) 10 mg PO DAILY [facility] Last Admin: 09/23/19 09:12 Dose: 10 mg Furosemide (Lasix Injection -) 40 mg IVPUSH DAILY [facility] Last Admin: 09/23/19 12:48 Dose: Not Given Meropenem 1 gm/ Dextrose 100 mls @ 200 mls/hr IVPB BID [facility] Last Admin: 09/23/19 09:16 Dose: 200 mls/hr Levothyroxine Sodium (Synthroid -) 75 mcg PO DAILY@0700 [facility] Last Admin: 09/23/19 06:26 Dose: 75 mcg Losartan Potassium (Cozaar -) 25 mg PO DAILY [facility] Last Admin: 09/23/19 10:49 Dose: 25 mg Pantoprazole Sodium (Protonix -) 40 mg PO DAILY [facility] Last Admin: 09/23/19 09:12 Dose: 40 mg Potassium Chloride (K-Dur -) 10 meq PO DAILY [facility] Last Admin: 09/23/19 09:12 Dose: 10 meq Valacyclovir HCl (Valtrex -) 500 mg PO DAILY [facility] Last Admin: 09/23/19 09:12 Dose: 500 mg - Objective Vital Signs: Vital Signs Temperature 99.3 F 09/23/19 18:00 Pulse Rate 97 H 09/23/19 18:00 Respiratory Rate 18 09/23/19 18:00 Blood Pressure 89/54 L 09/23/19 18:00 O2 Sat by Pulse Oximetry (%) 97 09/23/19 09:00 Labs: CBC, BMP 09/23/19 06:05 09/23/19 06:05 INR, PTT INR 1.16 (0.83-1.09) H 09/20/19 04:16 Problem List - Problems (1) Elevated troponin Code(s): R74.8 - ABNORMAL LEVELS OF OTHER SERUM ENZYMES (2) UTI (urinary tract infection) Code(s): N39.0 - URINARY TRACT INFECTION, SITE NOT SPECIFIED (3) HTN (hypertension) Code(s): I10 - ESSENTIAL (PRIMARY) HYPERTENSION Qualifiers: Hypertension type: unspecified Qualified Code(s): I10 - Essential (primary ) hypertension (4) Multiple myeloma Code(s): C90.00 - MULTIPLE MYELOMA NOT HAVING ACHIEVED REMISSION Qualifiers: Multiple myeloma remission status: not in remission Qualified Code(s): C90.00 - Multiple myeloma not having achieved remission (5) Diarrhea Code(s): R19.7 - DIARRHEA, UNSPECIFIED Qualifiers: Diarrhea type: unspecified type Qualified Code(s): R19.7 - Diarrhea, unspecified (6) HLD (hyperlipidemia) Code(s): E78.5 - HYPERLIPIDEMIA, UNSPECIFIED Qualifiers: Hyperlipidemia type: unspecified Qualified Code(s): E78.5 - Hyperlipidemia , unspecified (7) Hypothyroidism Code(s): E03.9 - HYPOTHYROIDISM, UNSPECIFIED Qualifiers: Hypothyroidism type: acquired Qualified Code(s): E03.9 - Hypothyroidism, unspecified (8) CAD (coronary artery disease) Code(s): I25.10 - ATHSCL HEART DISEASE OF [place] CORONARY ARTERY W/O ANG PCTRS Qualifiers: (9) Depression Code(s): F32.9 - MAJOR DEPRESSIVE DISORDER, SINGLE EPISODE, UNSPECIFIED (10) History of heart artery stent Code(s): Z95.5 - PRESENCE OF CORONARY ANGIOPLASTY IMPLANT AND GRAFT
[2019-09-23] MEDS: ATORVASTATIN CA 40 MG TABLET (FP) PO SCH (21:37)
[2019-09-24] MEDS: LEVOTHYROXINE NA 75 MCG TABLET (FP) PO SCH (06:14)
--- NOTE | 2019-09-24 07:11 | PN ---
Progress Note (short form) - Note Progress Note: Coverage for Drs. Ijeoma Bingham/Jalil Burgess Chief Complaint: Events noted, notes reviewed, denies any chest pain, dyspnea persists but improved, reports bilateral lower extremity discomfort History of Present Illness: Seen and examined on telemetry. Events noted, notes reviewed, denies any chest pain, dyspnea persists but improved, reports bilateral lower extremity discomfort Hypotension noted - Current Medication List Current Medications Acetaminophen (Tylenol -) 650 mg PO Q6H PRN PRN Reason: FEVER Last Admin: 09/22/19 18:55 Dose: 650 mg Albuterol/Ipratropium (Duoneb -) 1 amp NEB Q6H PRN PRN Reason: SHORTNESS OF BREATH Last Admin: 09/24/19 08:44 Dose: 1 amp Allopurinol (Zyloprim -) 300 mg PO DAILY [facility] Last Admin: 09/24/19 09:18 Dose: 300 mg Atorvastatin Calcium (Lipitor -) 40 mg PO HS [facility] Last Admin: 09/23/19 21:37 Dose: 40 mg Escitalopram Oxalate (Lexapro -) 10 mg PO DAILY [facility] Last Admin: 09/24/19 09:18 Dose: 10 mg Furosemide (Lasix Injection -) 40 mg IVPUSH DAILY [facility] Last Admin: 09/24/19 09:18 Dose: 40 mg Meropenem 1 gm/ Dextrose 100 mls @ 200 mls/hr IVPB BID [facility] Last Admin: 09/24/19 09:18 Dose: 200 mls/hr Levothyroxine Sodium (Synthroid -) 75 mcg PO DAILY@0700 [facility] Last Admin: 09/24/19 06:14 Dose: 75 mcg Losartan Potassium (Cozaar -) 25 mg PO DAILY [facility] Last Admin: 09/24/19 09:18 Dose: 25 mg Pantoprazole Sodium (Protonix -) 40 mg PO DAILY [facility] Last Admin: 09/24/19 09:18 Dose: 40 mg Potassium Chloride (K-Dur -) 10 meq PO DAILY [facility] Last Admin: 09/24/19 09:18 Dose: 10 meq Valacyclovir HCl (Valtrex -) 500 mg PO DAILY [facility] Last Admin: 09/24/19 09:18 Dose: 500 mg Review of Systems Cardiovascular: As noted above Respiratory: denies: Cough or Sputum Production Gastrointestinal: denies: Nausea, Vomiting, Diarrhea, Constipation or Abdominal Discomfort Musculoskeletal: No Symptoms Reported Endocrine: No Symptoms Reported - Objective Vital Signs: Last Vital Signs Temp Pulse Resp BP Pulse Ox 98.3 F 100 H 18 93/58 L 97 09/24/19 06:00 09/24/19 06:00 09/24/19 06:00 09/24/19 06:00 09/23/19 21:00 Intake & Output 09/21/19 09/22/19 09/23/19 09/24/19 23:59 23:59 23:59 23:59 Intake Total 2135 940 885 570 Output Total 300 Balance 2135 940 885 270 Weight 138 lb 8 oz 141 lb 144 lb 144 lb 9.6 oz Neck: Supple Negative JVD No Bruit Cardiovascular: S1 S2 Regular Rate and Rhythm Respiratory: Diminished Breath Sounds Bilaterally Gastrointestinal: Soft Benign Normal Bowel Sounds Ext: Edema Labs: CBC, BMP 09/23/19 06:05 09/23/19 06:05 Hepatic Panel Total Bilirubin 0.3 mg/dL (0.2-1) 09/23/19 06:05 AST 11 U/L (15-37) L 09/23/19 06:05 ALT 12 U/L (13-61) L 09/23/19 06:05 Alkaline Phosphatase 54 U/L (45-117) 09/23/19 06:05 Albumin 1.1 g/dl (3.4-5.0) L 09/23/19 06:05 INR, PTT INR 1.16 (0.83-1.09) H 09/20/19 04:16 ABG Results ABG pH 7.42 (7.35-7.45) 09/20/19 05:20 ABG pCO2 at Pt Temp 32.0 mmHg (35-45) L 09/20/19 05:20 ABG pO2 at Pt Temp 53.8 mmHg (80-100) L 09/20/19 05:20 ABG HCO3 20.6 mmol/L (22-27) L 09/20/19 05:20 ABG O2 Sat (Measured) 86.1 % (95-98) L 09/20/19 05:20 ABG O2 Content 13.1 % vol 09/20/19 05:20 ABG Base Excess -2.7 meq/l (-2-2) L 09/20/19 05:20 Assessment/Plan ASSESSMENT: 1. Clinical presentation is consistent with acute on chronic class II NYHA classification LV systolic failure, resolving 2. CAD post MT/PCI/stent demand ischemia angina pectoris 3. HTN 4. Hyperlipidemia, not at goal 5. History of Asthma 6. History of hiatal hernia 7. CKD with pre-renal azotemia 8. History of Multiple Myeloma 9. Anemia PLAN: 1. Continue IV Lasix with close monitoring of renal function and electrolytes, hemodyanamics permitting 2. recommend the addition of Coreg unless contraindicated, hemodyanamics permitting 3. Continue Cozaar unless contraindicated with close monitoring of renal function and electrolytes, hemodyanamics permitting- ideally Entresto therapy to initiated in substitution unless contraindicated 4. Recommend the addition of anti- platelet agent therapy with caution/anemia and thrombocytopenia- unless it is contraindicated Katty Manriquez M.D.
[2019-09-24] MEDS: ALBUTEROL SO4 2.5/IPRATROPIUM 0.5 INH SOL 3 ML VIAL.NEB. NEB PRN (08:44)
[2019-09-24] MEDS: MEROPENEM 1 GM in DEXTROSE 5%-WATER 100 ML IVPB SCH ×2 (09:18→22:41)
[2019-09-24] MEDS: POTASSIUM CHLORIDE TABS 10 MEQ TABLET.ER (FP) PO SCH (09:18)
[2019-09-24] MEDS: ALLOPURINOL 300 MG TABLET (FP) PO SCH (09:18)
[2019-09-24] MEDS: ESCITALOPRAM OXALATE 10 MG TABLET (FP) PO SCH (09:18)
[2019-09-24] MEDS: PANTOPRAZOLE 40 MG TABLET (FP) PO SCH (09:18)
[2019-09-24] MEDS: FUROSEMIDE 40 MG/4 ML INJECTABLE VIAL IVPUSH SCH (09:18)
[2019-09-24] MEDS: LOSARTAN POTASSIUM 25 MG TABLET PO SCH (09:18)
[2019-09-24] MEDS: valACYclovir HCL 500 MG TABLET (FP) PO SCH (09:18)
--- NOTE | 2019-09-24 12:38 | PN ---
Progress Note, Physician History of Present Illness: Pt is alert and responsive, although weak. States she is breathing better. Poor appetite. Temp 99.3F - Current Medication List Current Medications: Active Medications Acetaminophen (Tylenol -) 650 mg PO Q6H PRN PRN Reason: FEVER Last Admin: 09/22/19 18:55 Dose: 650 mg Albuterol/Ipratropium (Duoneb -) 1 amp NEB Q6H PRN PRN Reason: SHORTNESS OF BREATH Last Admin: 09/24/19 08:44 Dose: 1 amp Allopurinol (Zyloprim -) 300 mg PO DAILY [facility] Last Admin: 09/24/19 09:18 Dose: 300 mg Atorvastatin Calcium (Lipitor -) 40 mg PO HS [facility] Last Admin: 09/23/19 21:37 Dose: 40 mg Escitalopram Oxalate (Lexapro -) 10 mg PO DAILY [facility] Last Admin: 09/24/19 09:18 Dose: 10 mg Furosemide (Lasix Injection -) 40 mg IVPUSH DAILY [facility] Last Admin: 09/24/19 09:18 Dose: 40 mg Meropenem 1 gm/ Dextrose 100 mls @ 200 mls/hr IVPB BID [facility] Last Admin: 09/24/19 09:18 Dose: 200 mls/hr Levothyroxine Sodium (Synthroid -) 75 mcg PO DAILY@0700 [facility] Last Admin: 09/24/19 06:14 Dose: 75 mcg Losartan Potassium (Cozaar -) 25 mg PO DAILY [facility] Last Admin: 09/24/19 09:18 Dose: 25 mg Pantoprazole Sodium (Protonix -) 40 mg PO DAILY [facility] Last Admin: 09/24/19 09:18 Dose: 40 mg Potassium Chloride (K-Dur -) 10 meq PO DAILY [facility] Last Admin: 09/24/19 09:18 Dose: 10 meq Valacyclovir HCl (Valtrex -) 500 mg PO DAILY [facility] Last Admin: 09/24/19 09:18 Dose: 500 mg - Objective Vital Signs: Vital Signs Temperature 99.3 F 09/24/19 10:00 Pulse Rate 92 H 09/24/19 10:00 Respiratory Rate 18 09/24/19 09:00 Blood Pressure 107/64 09/24/19 10:00 O2 Sat by Pulse Oximetry (%) 97 09/24/19 09:00 Constitutional: Yes: No Distress, Calm Cardiovascular: Yes: Regular Rate and Rhythm Respiratory: Yes: Diminished (at bases) Gastrointestinal: Yes: Normal Bowel Sounds, Soft Genitourinary: Yes: WNL Extremities: Yes: WNL, Other (+SCDs) Edema: No Neurological: Yes: Alert Labs: CBC, BMP 09/23/19 06:05 09/23/19 06:05 INR, PTT INR 1.16 (0.83-1.09) H 09/20/19 04:16 Microbiology 09/20/19 04:16 Blood - Peripheral Venous Blood Culture - Preliminary NO GROWTH OBTAINED AFTER 96 HOURS, INCUBATION TO CONTINUE FOR 1 DAYS. 09/20/19 06:26 Urine - Urine Clean Catch Urine Culture - Final Strep Agalactiae Group B - ....Imaging Cat Scan: Report Reviewed Problem List - Problems (1) Depression Code(s): F32.9 - MAJOR DEPRESSIVE DISORDER, SINGLE EPISODE, UNSPECIFIED (2) ASHD (arteriosclerotic heart disease) Code(s): I25.10 - ATHSCL HEART DISEASE OF [place] CORONARY ARTERY W/O [facility] PCTRS (3) Acute on chronic renal failure Code(s): N17.9 - ACUTE KIDNEY FAILURE, UNSPECIFIED; N18.9 - CHRONIC KIDNEY DISEASE, UNSPECIFIED Qualifiers: Chronic kidney disease stage: stage 2 (mild) (4) Acute on chronic systolic CHF (congestive heart failure) Code(s): I50.23 - ACUTE ON CHRONIC SYSTOLIC (CONGESTIVE) HEART FAILURE (5) Anemia Code(s): D64.9 - ANEMIA, UNSPECIFIED Qualifiers: Chronic kidney disease stage: unspecified stage (6) CAD (coronary artery disease) Code(s): I25.10 - ATHSCL HEART DISEASE OF [place] CORONARY ARTERY W/O [facility] PCTRS Qualifiers: (7) CHF (congestive heart failure) Code(s): I50.9 - HEART FAILURE, UNSPECIFIED Qualifiers: Heart failure type: systolic Heart failure chronicity: unspecified Qualified Code(s): I50.20 - Unspecified systolic (congestive) heart failure (8) Hypothyroidism Code(s): E03.9 - HYPOTHYROIDISM, UNSPECIFIED Qualifiers: Hypothyroidism type: acquired Qualified Code(s): E03.9 - Hypothyroidism, unspecified (9) Multiple myeloma Code(s): C90.00 - MULTIPLE MYELOMA NOT HAVING ACHIEVED REMISSION Qualifiers: Multiple myeloma remission status: not in remission Qualified Code(s): C90.00 - Multiple myeloma not having achieved remission Assessment/Plan Fever b/l pleural effusions/b/l lower lobe atelectasis - ? PNA CHF Multiple Myeloma Amyloid CAD Leukopenia Anemia CKD Hypothyroidism Asthma Depression -- Pt with intermittent low grade fevers, currently afebrile - continue monitor vitals -- Continue Meropenem empirically for now -- monitor cbc/ temps -- blood cultures neg no current respiratory distress
--- NOTE | 2019-09-24 13:20 | PN ---
Progress Note (short form) - Note Progress Note: PULMONARY Still some shortness of breath. +nonproductive cough. Vital Signs Period Temp Pulse Resp BP Sys/Moss Pulse Ox Last 24 Hr 98.3 F-99.3 F 87-100 18-18 89-118/53-67 97-97 Gen: NAD at rest Heart: RRR Lung: decreased breath sounds at the bases Abd: soft, nontender Ext: + edema CBC, BMP 09/23/19 06:05 09/23/19 06:05 Active Medications Acetaminophen (Tylenol -) 650 mg PO Q6H PRN PRN Reason: FEVER Last Admin: 09/22/19 18:55 Dose: 650 mg Albuterol/Ipratropium (Duoneb -) 1 amp NEB Q6H PRN PRN Reason: SHORTNESS OF BREATH Last Admin: 09/24/19 08:44 Dose: 1 amp Allopurinol (Zyloprim -) 300 mg PO DAILY [facility] Last Admin: 09/24/19 09:18 Dose: 300 mg Atorvastatin Calcium (Lipitor -) 40 mg PO HS [facility] Last Admin: 09/23/19 21:37 Dose: 40 mg Escitalopram Oxalate (Lexapro -) 10 mg PO DAILY [facility] Last Admin: 09/24/19 09:18 Dose: 10 mg Furosemide (Lasix Injection -) 40 mg IVPUSH DAILY [facility] Last Admin: 09/24/19 09:18 Dose: 40 mg Meropenem 1 gm/ Dextrose 100 mls @ 200 mls/hr IVPB BID [facility] Last Admin: 09/24/19 09:18 Dose: 200 mls/hr Levothyroxine Sodium (Synthroid -) 75 mcg PO DAILY@0700 [facility] Last Admin: 09/24/19 06:14 Dose: 75 mcg Losartan Potassium (Cozaar -) 25 mg PO DAILY [facility] Last Admin: 09/24/19 09:18 Dose: 25 mg Pantoprazole Sodium (Protonix -) 40 mg PO DAILY [facility] Last Admin: 09/24/19 09:18 Dose: 40 mg Potassium Chloride (K-Dur -) 10 meq PO DAILY [facility] Last Admin: 09/24/19 09:18 Dose: 10 meq Valacyclovir HCl (Valtrex -) 500 mg PO DAILY [facility] Last Admin: 09/24/19 09:18 Dose: 500 mg A/P Acute on Chronic Systolic Heart Failure CAD Pneumonia Asthma CKD Multiple Myeloma HTN Hyperlipidemia Hypothyroidism Anemia - continue lasix - monitor urine output, creatinine - daily weights - antibiotics per ID - O2 to keep SpO2 >90% - inhaled bronchodilators as needed - DVT prophylaxis
[2019-09-24] MEDS ORDERED: ONDANSETRON 4 MG/2 ML VIAL IVPUSH ONE (14:15)
[2019-09-24] MEDS: ATORVASTATIN CA 40 MG TABLET (FP) PO SCH (22:41)
--- NOTE | 2019-09-24 23:48 | PN ---
Progress Note, Physician - Current Medication List Current Medications: Active Medications Acetaminophen (Tylenol -) 650 mg PO Q6H PRN PRN Reason: FEVER Last Admin: 09/22/19 18:55 Dose: 650 mg Albuterol/Ipratropium (Duoneb -) 1 amp NEB Q6H PRN PRN Reason: SHORTNESS OF BREATH Last Admin: 09/24/19 08:44 Dose: 1 amp Allopurinol (Zyloprim -) 300 mg PO DAILY [facility] Last Admin: 09/24/19 09:18 Dose: 300 mg Atorvastatin Calcium (Lipitor -) 40 mg PO HS [facility] Last Admin: 09/24/19 22:41 Dose: 40 mg Escitalopram Oxalate (Lexapro -) 10 mg PO DAILY [facility] Last Admin: 09/24/19 09:18 Dose: 10 mg Furosemide (Lasix Injection -) 40 mg IVPUSH DAILY [facility] Last Admin: 09/24/19 09:18 Dose: 40 mg Meropenem 1 gm/ Dextrose 100 mls @ 200 mls/hr IVPB BID [facility] Last Admin: 09/24/19 22:41 Dose: 200 mls/hr Levothyroxine Sodium (Synthroid -) 75 mcg PO DAILY@0700 [facility] Last Admin: 09/24/19 06:14 Dose: 75 mcg Losartan Potassium (Cozaar -) 25 mg PO DAILY [facility] Last Admin: 09/24/19 09:18 Dose: 25 mg Pantoprazole Sodium (Protonix -) 40 mg PO DAILY [facility] Last Admin: 09/24/19 09:18 Dose: 40 mg Potassium Chloride (K-Dur -) 10 meq PO DAILY [facility] Last Admin: 09/24/19 09:18 Dose: 10 meq Valacyclovir HCl (Valtrex -) 500 mg PO DAILY [facility] Last Admin: 09/24/19 09:18 Dose: 500 mg - Objective Vital Signs: Vital Signs Temperature 98.9 F 09/24/19 17:42 Pulse Rate 99 H 09/24/19 17:42 Respiratory Rate 20 09/24/19 17:42 Blood Pressure 94/52 L 09/24/19 17:42 O2 Sat by Pulse Oximetry (%) 97 09/24/19 09:00 Labs: CBC, BMP 09/23/19 06:05 09/23/19 06:05 INR, PTT INR 1.16 (0.83-1.09) H 09/20/19 04:16 Problem List - Problems (1) Elevated troponin Code(s): R74.8 - ABNORMAL LEVELS OF OTHER SERUM ENZYMES (2) UTI (urinary tract infection) Code(s): N39.0 - URINARY TRACT INFECTION, SITE NOT SPECIFIED (3) HTN (hypertension) Code(s): I10 - ESSENTIAL (PRIMARY) HYPERTENSION Qualifiers: Hypertension type: unspecified Qualified Code(s): I10 - Essential (primary ) hypertension (4) Multiple myeloma Code(s): C90.00 - MULTIPLE MYELOMA NOT HAVING ACHIEVED REMISSION Qualifiers: Multiple myeloma remission status: not in remission Qualified Code(s): C90.00 - Multiple myeloma not having achieved remission (5) Diarrhea Code(s): R19.7 - DIARRHEA, UNSPECIFIED Qualifiers: Diarrhea type: unspecified type Qualified Code(s): R19.7 - Diarrhea, unspecified (6) HLD (hyperlipidemia) Code(s): E78.5 - HYPERLIPIDEMIA, UNSPECIFIED Qualifiers: Hyperlipidemia type: unspecified Qualified Code(s): E78.5 - Hyperlipidemia , unspecified (7) Hypothyroidism Code(s): E03.9 - HYPOTHYROIDISM, UNSPECIFIED Qualifiers: Hypothyroidism type: acquired Qualified Code(s): E03.9 - Hypothyroidism, unspecified (8) CAD (coronary artery disease) Code(s): I25.10 - ATHSCL HEART DISEASE OF [place] CORONARY ARTERY W/O ANG PCTRS Qualifiers: (9) Depression Code(s): F32.9 - MAJOR DEPRESSIVE DISORDER, SINGLE EPISODE, UNSPECIFIED (10) History of heart artery stent Code(s): Z95.5 - PRESENCE OF CORONARY ANGIOPLASTY IMPLANT AND GRAFT
[2019-09-25] MEDS: LEVOTHYROXINE NA 75 MCG TABLET (FP) PO SCH (06:28)
--- NOTE | 2019-09-25 07:44 | PN ---
Progress Note (short form) - Note Progress Note: Coverage for Drs. Ijeoma Bingham/Jalli Burgess Chief Complaint: Events noted, notes reviewed, denies any chest pain, dyspnea persists but comtinues to improve History of Present Illness: Seen and examined on telemetry. Events noted, notes reviewed, denies any chest pain, dyspnea persists but comtinues to improve - Current Medication List Current Medications Acetaminophen (Tylenol -) 650 mg PO Q6H PRN PRN Reason: FEVER Last Admin: 09/22/19 18:55 Dose: 650 mg Albuterol/Ipratropium (Duoneb -) 1 amp NEB Q6H PRN PRN Reason: SHORTNESS OF BREATH Last Admin: 09/25/19 08:09 Dose: 1 amp Allopurinol (Zyloprim -) 300 mg PO DAILY [facility] Last Admin: 09/24/19 09:18 Dose: 300 mg Atorvastatin Calcium (Lipitor -) 40 mg PO HS [facility] Last Admin: 09/24/19 22:41 Dose: 40 mg Escitalopram Oxalate (Lexapro -) 10 mg PO DAILY [facility] Last Admin: 09/24/19 09:18 Dose: 10 mg Furosemide (Lasix Injection -) 40 mg IVPUSH DAILY [facility] Last Admin: 09/24/19 09:18 Dose: 40 mg Meropenem 1 gm/ Dextrose 100 mls @ 200 mls/hr IVPB BID [facility] Last Admin: 09/24/19 22:41 Dose: 200 mls/hr Levothyroxine Sodium (Synthroid -) 75 mcg PO DAILY@0700 [facility] Last Admin: 09/25/19 06:28 Dose: 75 mcg Losartan Potassium (Cozaar -) 25 mg PO DAILY [facility] Last Admin: 09/24/19 09:18 Dose: 25 mg Pantoprazole Sodium (Protonix -) 40 mg PO DAILY [facility] Last Admin: 09/24/19 09:18 Dose: 40 mg Potassium Chloride (K-Dur -) 10 meq PO DAILY [facility] Last Admin: 09/24/19 09:18 Dose: 10 meq Valacyclovir HCl (Valtrex -) 500 mg PO DAILY [facility] Last Admin: 09/24/19 09:18 Dose: 500 mg Review of Systems Cardiovascular: As noted above Respiratory: denies: Cough or Sputum Production Gastrointestinal: denies: Nausea, Vomiting, Diarrhea, Constipation or Abdominal Discomfort Musculoskeletal: No Symptoms Reported Endocrine: No Symptoms Reported - Objective Vital Signs: Last Vital Signs Temp Pulse Resp BP Pulse Ox 99.0 F 99 H 20 103/59 L 97 09/25/19 05:49 09/25/19 05:49 09/25/19 05:49 09/25/19 05:49 09/24/19 21:00 Intake & Output 09/22/19 09/23/19 09/24/19 09/25/19 23:59 23:59 23:59 23:59 Intake Total 940 885 770 Output Total 600 Balance 940 885 170 Weight 141 lb 144 lb 144 lb 9.6 oz 131 lb Neck: Supple Negative JVD No Bruit Cardiovascular: S1 S2 Regular Rate and Rhythm Respiratory: Diminished Breath Sounds Bilaterally Gastrointestinal: Soft Benign Normal Bowel Sounds Ext: Edema Labs: CBC, BMP 09/23/19 06:05 09/23/19 06:05 ABG Results ABG pH 7.42 (7.35-7.45) 09/20/19 05:20 ABG pCO2 at Pt Temp 32.0 mmHg (35-45) L 09/20/19 05:20 ABG pO2 at Pt Temp 53.8 mmHg (80-100) L 09/20/19 05:20 ABG HCO3 20.6 mmol/L (22-27) L 09/20/19 05:20 ABG O2 Sat (Measured) 86.1 % (95-98) L 09/20/19 05:20 ABG O2 Content 13.1 % vol 09/20/19 05:20 ABG Base Excess -2.7 meq/l (-2-2) L 09/20/19 05:20 Hepatic Panel Total Bilirubin 0.3 mg/dL (0.2-1) 09/23/19 06:05 AST 11 U/L (15-37) L 09/23/19 06:05 ALT 12 U/L (13-61) L 09/23/19 06:05 Alkaline Phosphatase 54 U/L (45-117) 09/23/19 06:05 Albumin 1.1 g/dl (3.4-5.0) L 09/23/19 06:05 INR, PTT INR 1.16 (0.83-1.09) H 09/20/19 04:16 Assessment/Plan ASSESSMENT: 1. Clinical presentation is consistent with acute on chronic class II NYHA classification LV systolic failure, resolving 2. CAD post MS/PCI/stent demand ischemia angina pectoris 3. HTN 4. Hyperlipidemia 5. History of Asthma 6. History of hiatal hernia 7. CKD with pre-renal azotemia 8. History of Multiple Myeloma 9. Anemia PLAN: 1. Continue IV Lasix with close monitoring of renal function and electrolytes, hemodyanamics permitting 2. as outlined recommend the addition of Coreg unless contraindicated, hemodyanamics permitting 3. Continue Cozaar unless contraindicated with close monitoring of renal function and electrolytes, hemodyanamics permitting- ideally Entresto therapy to initiated in substitution unless contraindicated 4. Recommend the addition of anti- platelet agent therapy with caution/anemia and thrombocytopenia- unless it is contraindicated Katty Manriquez M.D.
[2019-09-25] MEDS: ALBUTEROL SO4 2.5/IPRATROPIUM 0.5 INH SOL 3 ML VIAL.NEB. NEB PRN (08:09)
[2019-09-25] MEDS ORDERED: MEROPENEM 1 GM VIAL (RESTRICTED TO ID) IVPB ONE ×2 (10:53→21:02)
[2019-09-25] MEDS ORDERED: DEXTROSE 5%-WATER 100 ML IVPB ONE ×2 (10:54→21:02)
[2019-09-25] MEDS: ESCITALOPRAM OXALATE 10 MG TABLET (FP) PO SCH (11:14)
[2019-09-25] MEDS: MEROPENEM 1 GM in DEXTROSE 5%-WATER 100 ML IVPB SCH ×2 (11:14→21:12)
[2019-09-25] MEDS: ALLOPURINOL 300 MG TABLET (FP) PO SCH (11:14)
[2019-09-25] MEDS: valACYclovir HCL 500 MG TABLET (FP) PO SCH (11:14)
[2019-09-25] MEDS: FUROSEMIDE 40 MG/4 ML INJECTABLE VIAL IVPUSH SCH (11:14)
[2019-09-25] MEDS: PANTOPRAZOLE 40 MG TABLET (FP) PO SCH (11:15)
[2019-09-25] MEDS: POTASSIUM CHLORIDE TABS 10 MEQ TABLET.ER (FP) PO SCH (11:15)
[2019-09-25] MEDS: LOSARTAN POTASSIUM 25 MG TABLET PO SCH (11:15)
[2019-09-25] MEDS: ASPIRIN COATED 81 MG TABLET.EC PO SCH (11:44)
[2019-09-25] MEDS: CARVEDILOL 3.125 MG TABLET (FP) PO SCH ×2 (11:45→21:12)
[2019-09-25] MEDS: ACETAMINOPHEN 325 MG TABLET (FP) PO PRN (11:51)
--- NOTE | 2019-09-25 13:36 | PN ---
Progress Note (short form) - Note Progress Note: PULMONARY Still some shortness of breath but slowly improving. +nonproductive cough. Vital Signs Period Temp Pulse Resp BP Sys/Moss Pulse Ox Last 24 Hr 98.7 F-99.8 F 93-109 18-20 78-109/49-69 97 Intake & Output 09/22/19 09/23/19 09/24/19 09/25/19 23:59 23:59 23:59 23:59 Intake Total 940 885 770 370 Output Total 600 Balance 940 885 170 370 Weight 63.957 kg 65.317 kg 65.589 kg 59.421 kg Gen: NAD at rest Heart: RRR Lung: decreased breath sounds at the bases Abd: soft, nontender Ext: + edema CBC, BMP 09/23/19 06:05 09/23/19 06:05 Active Medications Acetaminophen (Tylenol -) 650 mg PO Q6H PRN PRN Reason: FEVER Last Admin: 09/25/19 11:51 Dose: 650 mg Albuterol/Ipratropium (Duoneb -) 1 amp NEB Q6H PRN PRN Reason: SHORTNESS OF BREATH Last Admin: 09/25/19 08:09 Dose: 1 amp Allopurinol (Zyloprim -) 300 mg PO DAILY [facility] Last Admin: 09/25/19 11:14 Dose: 300 mg Aspirin (Ecotrin -) 81 mg PO DAILY [facility] Last Admin: 09/25/19 11:44 Dose: 81 mg Atorvastatin Calcium (Lipitor -) 40 mg PO HS [facility] Last Admin: 09/24/19 22:41 Dose: 40 mg Carvedilol (Coreg -) 3.125 mg PO BID [facility] Last Admin: 09/25/19 11:45 Dose: Not Given Escitalopram Oxalate (Lexapro -) 10 mg PO DAILY [facility] Last Admin: 09/25/19 11:14 Dose: 10 mg Furosemide (Lasix Injection -) 40 mg IVPUSH DAILY [facility] Last Admin: 09/25/19 11:14 Dose: 40 mg Meropenem 1 gm/ Dextrose 100 mls @ 200 mls/hr IVPB BID [facility] Last Admin: 09/25/19 11:14 Dose: 200 mls/hr Levothyroxine Sodium (Synthroid -) 75 mcg PO DAILY@0700 [facility] Last Admin: 09/25/19 06:28 Dose: 75 mcg Losartan Potassium (Cozaar -) 25 mg PO DAILY [facility] Last Admin: 09/25/19 11:15 Dose: 25 mg Pantoprazole Sodium (Protonix -) 40 mg PO DAILY [facility] Last Admin: 09/25/19 11:15 Dose: 40 mg Potassium Chloride (K-Dur -) 10 meq PO DAILY [facility] Last Admin: 09/25/19 11:15 Dose: 10 meq Valacyclovir HCl (Valtrex -) 500 mg PO DAILY [facility] Last Admin: 09/25/19 11:14 Dose: 500 mg A/P Acute on Chronic Systolic Heart Failure CAD Pneumonia Asthma CKD Multiple Myeloma HTN Hyperlipidemia Hypothyroidism Anemia - continue lasix - monitor urine output, creatinine - daily weights - antibiotics per ID - O2 to keep SpO2 >90% - inhaled bronchodilators as needed - DVT prophylaxis
--- NOTE | 2019-09-25 13:44 | PN ---
Progress Note (short form) - Note Progress Note: Patient seen in follow up. No new complaints. No significant events overnight. States she feels much better tehn yesterday - denies dyspnea - has gotten out of bed twice to go to bathroom. Inpatient Meds reviewed. Current Medications Acetaminophen (Tylenol -) 650 mg PO Q6H PRN PRN Reason: FEVER Last Admin: 09/25/19 11:51 Dose: 650 mg Albuterol/Ipratropium (Duoneb -) 1 amp NEB Q6H PRN PRN Reason: SHORTNESS OF BREATH Last Admin: 09/25/19 08:09 Dose: 1 amp Allopurinol (Zyloprim -) 300 mg PO DAILY [facility] Last Admin: 09/25/19 11:14 Dose: 300 mg Aspirin (Ecotrin -) 81 mg PO DAILY [facility] Last Admin: 09/25/19 11:44 Dose: 81 mg Atorvastatin Calcium (Lipitor -) 40 mg PO HS [facility] Last Admin: 09/24/19 22:41 Dose: 40 mg Carvedilol (Coreg -) 3.125 mg PO BID [facility] Last Admin: 09/25/19 11:45 Dose: Not Given Escitalopram Oxalate (Lexapro -) 10 mg PO DAILY [facility] Last Admin: 09/25/19 11:14 Dose: 10 mg Furosemide (Lasix Injection -) 40 mg IVPUSH DAILY [facility] Last Admin: 09/25/19 11:14 Dose: 40 mg Meropenem 1 gm/ Dextrose 100 mls @ 200 mls/hr IVPB BID [facility] Last Admin: 09/25/19 11:14 Dose: 200 mls/hr Levothyroxine Sodium (Synthroid -) 75 mcg PO DAILY@0700 [facility] Last Admin: 09/25/19 06:28 Dose: 75 mcg Losartan Potassium (Cozaar -) 25 mg PO DAILY [facility] Last Admin: 09/25/19 11:15 Dose: 25 mg Pantoprazole Sodium (Protonix -) 40 mg PO DAILY [facility] Last Admin: 09/25/19 11:15 Dose: 40 mg Potassium Chloride (K-Dur -) 10 meq PO DAILY [facility] Last Admin: 09/25/19 11:15 Dose: 10 meq Valacyclovir HCl (Valtrex -) 500 mg PO DAILY [facility] Last Admin: 09/25/19 11:14 Dose: 500 mg On Examination: Last Vital Signs Temp Pulse Resp BP Pulse Ox 99.1 F 94 H 20 78/49 L 97 09/25/19 11:47 09/25/19 11:47 09/25/19 11:47 09/25/19 11:47 09/24/19 21:00 General: In no acute distress, lying comfortably in bed. Extremities: No pallor or icterus. No pedal edema. No palpable lymphadenopathy. CVS: S1, S2, regular, no gallop or murmur. Chest: good air entry bilaterally, clear Abdomen: Non-distended, non-tender, no palpable organomegaly. Neuro: Alert, oriented, non-focal. Labs: ( no recent labs) CBC, BMP 09/23/19 06:05 09/23/19 06:05 Assessment. Myeloma - controlled disease - currently receiving Velcade/Dex/Cytoxan -(since June 2019) Counts stable. Lambda LC stable over past 4 months. Admitted with decompensated CHF (CAD) - improving with diuresis. Currently no hematological contraindication to addition of anti-platelet agent - but would need active monitoring of platelet counts, and vigilance noting history of GI bleed.
--- NOTE | 2019-09-25 15:03 | PN ---
Progress Note, Physician History of Present Illness: Pt is alert and responsive, without acute respiratory distress. States she feels the same as yesterday. Noted to be hypotensive after dose of lasix. - Current Medication List Current Medications: Active Medications Acetaminophen (Tylenol -) 650 mg PO Q6H PRN PRN Reason: FEVER Last Admin: 09/25/19 11:51 Dose: 650 mg Albuterol/Ipratropium (Duoneb -) 1 amp NEB Q6H PRN PRN Reason: SHORTNESS OF BREATH Last Admin: 09/25/19 08:09 Dose: 1 amp Allopurinol (Zyloprim -) 300 mg PO DAILY [facility] Last Admin: 09/25/19 11:14 Dose: 300 mg Aspirin (Ecotrin -) 81 mg PO DAILY [facility] Last Admin: 09/25/19 11:44 Dose: 81 mg Atorvastatin Calcium (Lipitor -) 40 mg PO HS [facility] Last Admin: 09/24/19 22:41 Dose: 40 mg Carvedilol (Coreg -) 3.125 mg PO BID [facility] Last Admin: 09/25/19 11:45 Dose: Not Given Escitalopram Oxalate (Lexapro -) 10 mg PO DAILY [facility] Last Admin: 09/25/19 11:14 Dose: 10 mg Furosemide (Lasix Injection -) 40 mg IVPUSH DAILY [facility] Last Admin: 09/25/19 11:14 Dose: 40 mg Meropenem 1 gm/ Dextrose 100 mls @ 200 mls/hr IVPB BID [facility] Last Admin: 09/25/19 11:14 Dose: 200 mls/hr Levothyroxine Sodium (Synthroid -) 75 mcg PO DAILY@0700 [facility] Last Admin: 09/25/19 06:28 Dose: 75 mcg Losartan Potassium (Cozaar -) 25 mg PO DAILY [facility] Last Admin: 09/25/19 11:15 Dose: 25 mg Pantoprazole Sodium (Protonix -) 40 mg PO DAILY [facility] Last Admin: 09/25/19 11:15 Dose: 40 mg Potassium Chloride (K-Dur -) 10 meq PO DAILY [facility] Last Admin: 09/25/19 11:15 Dose: 10 meq Valacyclovir HCl (Valtrex -) 500 mg PO DAILY [facility] Last Admin: 09/25/19 11:14 Dose: 500 mg - Objective Vital Signs: Vital Signs Temperature 99.1 F 09/25/19 11:47 Pulse Rate 94 H 11/24/19 11:47 Respiratory Rate 20 09/25/19 11:47 Blood Pressure 78/49 L 09/25/19 11:47 O2 Sat by Pulse Oximetry (%) 96 09/25/19 09:00 Constitutional: Yes: No Distress, Calm HENT: Yes: Atraumatic Neck: Yes: Supple Cardiovascular: Yes: Regular Rate and Rhythm Respiratory: Yes: Rales (b/l) Gastrointestinal: Yes: Normal Bowel Sounds, Soft Genitourinary: Yes: WNL Edema: LLE: 1+, RLE: 1+ Integumentary: Yes: WNL Neurological: Yes: Alert, Oriented Labs: CBC, BMP 09/23/19 06:05 09/23/19 06:05 INR, PTT INR 1.16 (0.83-1.09) H 09/20/19 04:16 Microbiology 09/20/19 04:16 Blood - Peripheral Venous Blood Culture - Final NO GROWTH AFTER 5 DAYS INCUBATION 09/20/19 06:26 Urine - Urine Clean Catch Urine Culture - Final Strep Agalactiae Group B - ....Imaging Cat Scan: Report Reviewed Problem List - Problems (1) Depression Code(s): F32.9 - MAJOR DEPRESSIVE DISORDER, SINGLE EPISODE, UNSPECIFIED (2) ASHD (arteriosclerotic heart disease) Code(s): I25.10 - ATHSCL HEART DISEASE OF [place] CORONARY ARTERY W/O ANG PCTRS (3) Acute on chronic renal failure Code(s): N17.9 - ACUTE KIDNEY FAILURE, UNSPECIFIED; N18.9 - CHRONIC KIDNEY DISEASE, UNSPECIFIED Qualifiers: Chronic kidney disease stage: stage 2 (mild) (4) Acute on chronic systolic CHF (congestive heart failure) Code(s): I50.23 - ACUTE ON CHRONIC SYSTOLIC (CONGESTIVE) HEART FAILURE (5) Anemia Code(s): D64.9 - ANEMIA, UNSPECIFIED Qualifiers: Chronic kidney disease stage: unspecified stage (6) CAD (coronary artery disease) Code(s): I25.10 - ATHSCL HEART DISEASE OF [place] CORONARY ARTERY W/O ANG PCTRS Qualifiers: (7) CHF (congestive heart failure) Code(s): I50.9 - HEART FAILURE, UNSPECIFIED Qualifiers: Heart failure type: systolic Heart failure chronicity: unspecified Qualified Code(s): I50.20 - Unspecified systolic (congestive) heart failure (8) Hypothyroidism Code(s): E03.9 - HYPOTHYROIDISM, UNSPECIFIED Qualifiers: Hypothyroidism type: acquired Qualified Code(s): E03.9 - Hypothyroidism, unspecified (9) Multiple myeloma Code(s): C90.00 - MULTIPLE MYELOMA NOT HAVING ACHIEVED REMISSION Qualifiers: Multiple myeloma remission status: not in remission Qualified Code(s): C90.00 - Multiple myeloma not having achieved remission Assessment/Plan Fever b/l pleural effusions/b/l lower lobe atelectasis CHF Multiple Myeloma Amyloid CAD Leukopenia Anemia CKD Hypothyroidism Asthma Depression -- Pt with intermittent low grade fevers, currently afebrile, alert -- Continue antibiotics -- hypotensive after lasix earlier -- repeat vitals as d/w RN, pt without distress/fully alert -- continue monitor temps/vitals closely
[2019-09-25] MEDS: ATORVASTATIN CA 40 MG TABLET (FP) PO SCH (21:12)
--- NOTE | 2019-09-25 22:29 | PN ---
Progress Note, Physician - Current Medication List Current Medications: Active Medications Acetaminophen (Tylenol -) 650 mg PO Q6H PRN PRN Reason: FEVER Last Admin: 09/25/19 11:51 Dose: 650 mg Albuterol/Ipratropium (Duoneb -) 1 amp NEB Q6H PRN PRN Reason: SHORTNESS OF BREATH Last Admin: 09/25/19 08:09 Dose: 1 amp Allopurinol (Zyloprim -) 300 mg PO DAILY [facility] Last Admin: 09/25/19 11:14 Dose: 300 mg Aspirin (Ecotrin -) 81 mg PO DAILY [facility] Last Admin: 09/25/19 11:44 Dose: 81 mg Atorvastatin Calcium (Lipitor -) 40 mg PO HS [facility] Last Admin: 09/25/19 21:12 Dose: 40 mg Carvedilol (Coreg -) 3.125 mg PO BID [facility] Last Admin: 09/25/19 21:12 Dose: Not Given Escitalopram Oxalate (Lexapro -) 10 mg PO DAILY [facility] Last Admin: 09/25/19 11:14 Dose: 10 mg Furosemide (Lasix Injection -) 40 mg IVPUSH DAILY [facility] Last Admin: 09/25/19 11:14 Dose: 40 mg Meropenem 1 gm/ Dextrose 100 mls @ 200 mls/hr IVPB BID [facility] Last Admin: 09/25/19 21:12 Dose: 200 mls/hr Levothyroxine Sodium (Synthroid -) 75 mcg PO DAILY@0700 [facility] Last Admin: 09/25/19 06:28 Dose: 75 mcg Losartan Potassium (Cozaar -) 25 mg PO DAILY [facility] Last Admin: 09/25/19 11:15 Dose: 25 mg Pantoprazole Sodium (Protonix -) 40 mg PO DAILY [facility] Last Admin: 09/25/19 11:15 Dose: 40 mg Potassium Chloride (K-Dur -) 10 meq PO DAILY [facility] Last Admin: 09/25/19 11:15 Dose: 10 meq Valacyclovir HCl (Valtrex -) 500 mg PO DAILY [facility] Last Admin: 09/25/19 11:14 Dose: 500 mg - Objective Vital Signs: Vital Signs Temperature 98.5 F 09/25/19 22:00 Pulse Rate 90 09/25/19 22:00 Respiratory Rate 20 09/25/19 22:00 Blood Pressure 87/52 L 09/25/19 22:00 O2 Sat by Pulse Oximetry (%) 98 09/25/19 21:00 Labs: CBC, BMP 09/23/19 06:05 09/23/19 06:05 INR, PTT INR 1.16 (0.83-1.09) H 09/20/19 04:16 Problem List - Problems (1) Elevated troponin Code(s): R74.8 - ABNORMAL LEVELS OF OTHER SERUM ENZYMES (2) UTI (urinary tract infection) Code(s): N39.0 - URINARY TRACT INFECTION, SITE NOT SPECIFIED (3) HTN (hypertension) Code(s): I10 - ESSENTIAL (PRIMARY) HYPERTENSION Qualifiers: Hypertension type: unspecified Qualified Code(s): I10 - Essential (primary ) hypertension (4) Multiple myeloma Code(s): C90.00 - MULTIPLE MYELOMA NOT HAVING ACHIEVED REMISSION Qualifiers: Multiple myeloma remission status: not in remission Qualified Code(s): C90.00 - Multiple myeloma not having achieved remission (5) Diarrhea Code(s): R19.7 - DIARRHEA, UNSPECIFIED Qualifiers: Diarrhea type: unspecified type Qualified Code(s): R19.7 - Diarrhea, unspecified (6) HLD (hyperlipidemia) Code(s): E78.5 - HYPERLIPIDEMIA, UNSPECIFIED Qualifiers: Hyperlipidemia type: unspecified Qualified Code(s): E78.5 - Hyperlipidemia , unspecified (7) Hypothyroidism Code(s): E03.9 - HYPOTHYROIDISM, UNSPECIFIED Qualifiers: Hypothyroidism type: acquired Qualified Code(s): E03.9 - Hypothyroidism, unspecified (8) CAD (coronary artery disease) Code(s): I25.10 - ATHSCL HEART DISEASE OF [place] CORONARY ARTERY W/O ANG PCTRS Qualifiers: (9) Depression Code(s): F32.9 - MAJOR DEPRESSIVE DISORDER, SINGLE EPISODE, UNSPECIFIED (10) History of heart artery stent Code(s): Z95.5 - PRESENCE OF CORONARY ANGIOPLASTY IMPLANT AND GRAFT
[2019-09-26] MEDS: ALBUTEROL SO4 2.5/IPRATROPIUM 0.5 INH SOL 3 ML VIAL.NEB. NEB PRN (03:30)
[2019-09-26] MEDS: LEVOTHYROXINE NA 75 MCG TABLET (FP) PO SCH (06:27)
--- NOTE | 2019-09-26 08:05 | PN ---
Progress Note, Physician History of Present Illness: 74 year old black female with PMH HTN, HLD, CAD s/p coronary artery stenting, GERD, multiple myeloma (chemo; radiation directed at abdomen), ? "mild" systolic CHF, on Lasix, rectal hemorrhoids, now presented to ED for diarrhea x2 days associated with generalized weakness, ROGERS. Pt reported she has had loose, watery diarrhea x2 days, and prior to that he had rectal bleeding x2 days (on toilet paper and mixed in stool) that self resolved. She reported she only noticed the bleeding because it was on the toilet paper, as she did not have abdominal or rectal pain. Pt reported generalized weakness and ROGERS, which prompted her to come to the ED. Pt denied nausea, vomiting, fever, abdominal pain, chest pain, increased LE swelling. She reported she believed her lower extremity swelling is actually improving. She also reported noticing a new "rash " to her right hip since last week. - Current Medication List Current Medications: Active Medications Acetaminophen (Tylenol -) 650 mg PO Q6H PRN PRN Reason: FEVER Last Admin: 09/25/19 11:51 Dose: 650 mg Albuterol/Ipratropium (Duoneb -) 1 amp NEB Q6H PRN PRN Reason: SHORTNESS OF BREATH Last Admin: 09/26/19 03:30 Dose: 1 amp Allopurinol (Zyloprim -) 300 mg PO DAILY [facility] Last Admin: 09/25/19 11:14 Dose: 300 mg Aspirin (Ecotrin -) 81 mg PO DAILY [facility] Last Admin: 09/25/19 11:44 Dose: 81 mg Atorvastatin Calcium (Lipitor -) 40 mg PO HS [facility] Last Admin: 09/25/19 21:12 Dose: 40 mg Carvedilol (Coreg -) 3.125 mg PO BID [facility] Last Admin: 09/25/19 21:12 Dose: Not Given Escitalopram Oxalate (Lexapro -) 10 mg PO DAILY [facility] Last Admin: 09/25/19 11:14 Dose: 10 mg Furosemide (Lasix Injection -) 40 mg IVPUSH DAILY [facility] Last Admin: 09/25/19 11:14 Dose: 40 mg Meropenem 1 gm/ Dextrose 100 mls @ 200 mls/hr IVPB BID [facility] Last Admin: 09/25/19 21:12 Dose: 200 mls/hr Levothyroxine Sodium (Synthroid -) 75 mcg PO DAILY@0700 [facility] Last Admin: 09/26/19 06:27 Dose: 75 mcg Losartan Potassium (Cozaar -) 25 mg PO DAILY [facility] Last Admin: 09/25/19 11:15 Dose: 25 mg Pantoprazole Sodium (Protonix -) 40 mg PO DAILY [facility] Last Admin: 09/25/19 11:15 Dose: 40 mg Potassium Chloride (K-Dur -) 10 meq PO DAILY [facility] Last Admin: 09/25/19 11:15 Dose: 10 meq Valacyclovir HCl (Valtrex -) 500 mg PO DAILY [facility] Last Admin: 09/25/19 11:14 Dose: 500 mg - Objective Vital Signs: Vital Signs Temperature 98.5 F 09/26/19 06:00 Pulse Rate 95 H 09/26/19 06:00 Respiratory Rate 18 09/26/19 06:00 Blood Pressure 101/60 09/26/19 06:00 O2 Sat by Pulse Oximetry (%) 98 09/25/19 21:00 Eyes: Yes: WNL, Conjunctiva Clear, EOM Intact HENT: Yes: WNL, Atraumatic, Normocephalic Neck: Yes: WNL, Supple, Trachea Midline Cardiovascular: Yes: WNL, Regular Rate and Rhythm Respiratory: Yes: WNL, Regular, CTA Bilaterally Gastrointestinal: Yes: WNL, Normal Bowel Sounds Genitourinary: Yes: WNL Musculoskeletal: Yes: WNL Extremities: Yes: WNL Edema: No Integumentary: Yes: WNL Neurological: Yes: WNL, Alert, Oriented ...Motor Strength: WNL Psychiatric: Yes: WNL Labs: CBC, BMP 09/23/19 06:05 09/23/19 06:05 INR, PTT INR 1.16 (0.83-1.09) H 09/20/19 04:16 Assessment/Plan - Problems (1) Hypoxia Code(s): R09.02 - HYPOXEMIA (2) Weakness Code(s): R53.1 - WEAKNESS (3) ASHD (arteriosclerotic heart disease) Code(s): I25.10 - ATHSCL HEART DISEASE OF [place] CORONARY ARTERY W/O ANG PCTRS (4) Acute on chronic systolic CHF (congestive heart failure) Assessment/Plan: On losartan (restart) and furosemide. F/u BNP, BUN/Cr, electrolytes, daily weight, Is and Os. ECHO: severely reduced LVEF; small pericardial effusion which is not hemodynamically significant; pleural effuson. Plan to start carvedilol or metoprolol if BP and HR allow. Code(s): I50.23 - ACUTE ON CHRONIC SYSTOLIC (CONGESTIVE) HEART FAILURE (5) Adult onset hypothyroidism Assessment/Plan: elevated TSH; f/u Free T4. Code(s): E03.8 - OTHER SPECIFIED HYPOTHYROIDISM (6) Anxiety Code(s): F41.9 - ANXIETY DISORDER, UNSPECIFIED (7) Elevated troponin Code(s): R74.8 - ABNORMAL LEVELS OF OTHER SERUM ENZYMES (8) HLD (hyperlipidemia) Assessment/Plan: On statin. LDL elevated in March; f/u lipid profile. Code(s): E78.5 - HYPERLIPIDEMIA, UNSPECIFIED Qualifiers: Hyperlipidemia type: unspecified Qualified Code(s): E78.5 - Hyperlipidemia , unspecified (9) HTN (hypertension) Assessment/Plan: On losartan and furosemide. Would start beta savana if remains stable, even if BP is relatively low-normal , given severity of systolic dysfunction. Code(s): I10 - ESSENTIAL (PRIMARY) HYPERTENSION Qualifiers: Hypertension type: unspecified Qualified Code(s): I10 - Essential (primary ) hypertension (10) History of heart artery stent Code(s): Z95.5 - PRESENCE OF CORONARY ANGIOPLASTY IMPLANT AND GRAFT (11) Multiple myeloma Code(s): C90.00 - MULTIPLE MYELOMA NOT HAVING ACHIEVED REMISSION Qualifiers: Multiple myeloma remission status: not in remission Qualified Code(s): C90.00 - Multiple myeloma not having achieved remission (12) Pancytopenia Code(s): D61.818 - OTHER PANCYTOPENIA
[2019-09-26] MEDS ORDERED: MEROPENEM 1 GM VIAL (RESTRICTED TO ID) IVPB ONE ×2 (09:24→20:34)
[2019-09-26] MEDS ORDERED: DEXTROSE 5%-WATER 100 ML IVPB ONE ×2 (09:24→20:34)
[2019-09-26] MEDS: PANTOPRAZOLE 40 MG TABLET (FP) PO SCH (09:29)
[2019-09-26] MEDS: ASPIRIN COATED 81 MG TABLET.EC PO SCH (09:29)
[2019-09-26] MEDS: ALLOPURINOL 300 MG TABLET (FP) PO SCH (09:29)
[2019-09-26] MEDS: POTASSIUM CHLORIDE TABS 10 MEQ TABLET.ER (FP) PO SCH (09:29)
[2019-09-26] MEDS: LOSARTAN POTASSIUM 25 MG TABLET PO SCH (09:29)
[2019-09-26] MEDS: ESCITALOPRAM OXALATE 10 MG TABLET (FP) PO SCH (09:29)
[2019-09-26] MEDS: valACYclovir HCL 500 MG TABLET (FP) PO SCH (09:29)
[2019-09-26] MEDS: MEROPENEM 1 GM in DEXTROSE 5%-WATER 100 ML IVPB SCH ×2 (09:31→21:00)
[2019-09-26] MEDS: CARVEDILOL 3.125 MG TABLET (FP) PO SCH ×2 (11:19→21:00)
[2019-09-26] MEDS: FUROSEMIDE 40 MG/4 ML INJECTABLE VIAL IVPUSH SCH (11:19)
--- NOTE | 2019-09-26 11:37 | PN ---
Progress Note (short form) - Note Progress Note: Breathing is slowly improving but not at baseline. Some with some non-productive cough and wheezing. No acute events overnight. Intake & Output 09/23/19 09/24/19 09/25/19 09/26/19 23:59 23:59 23:59 23:59 Intake Total 885 770 710 Output Total 600 Balance 885 170 710 Weight 144 lb 144 lb 9.6 oz 131 lb 132 lb 14.4 oz Last Vital Signs Temp Pulse Resp BP Pulse Ox 98.5 F 95 H 22 H 97/59 L 98 09/26/19 08:16 09/26/19 08:16 09/26/19 11:26 09/26/19 11:26 09/25/19 21:00 Active Medications Acetaminophen (Tylenol -) 650 mg PO Q6H PRN PRN Reason: FEVER Last Admin: 09/25/19 11:51 Dose: 650 mg Albuterol/Ipratropium (Duoneb -) 1 amp NEB Q6H PRN PRN Reason: SHORTNESS OF BREATH Last Admin: 09/26/19 03:30 Dose: 1 amp Allopurinol (Zyloprim -) 300 mg PO DAILY [facility] Last Admin: 09/26/19 09:29 Dose: 300 mg Aspirin (Ecotrin -) 81 mg PO DAILY [facility] Last Admin: 09/26/19 09:29 Dose: 81 mg Atorvastatin Calcium (Lipitor -) 40 mg PO HS [facility] Last Admin: 09/25/19 21:12 Dose: 40 mg Carvedilol (Coreg -) 3.125 mg PO BID [facility] Last Admin: 09/26/19 11:19 Dose: 3.125 mg Escitalopram Oxalate (Lexapro -) 10 mg PO DAILY [facility] Last Admin: 09/26/19 09:29 Dose: 10 mg Furosemide (Lasix Injection -) 40 mg IVPUSH DAILY [facility] Last Admin: 09/26/19 11:19 Dose: 40 mg Meropenem 1 gm/ Dextrose 100 mls @ 200 mls/hr IVPB BID [facility] Last Admin: 09/26/19 09:31 Dose: 200 mls/hr Levothyroxine Sodium (Synthroid -) 75 mcg PO DAILY@0700 [facility] Last Admin: 09/26/19 06:27 Dose: 75 mcg Losartan Potassium (Cozaar -) 25 mg PO DAILY [facility] Last Admin: 09/26/19 Dose: 25 mg Pantoprazole Sodium (Protonix -) 40 mg PO DAILY [facility] Last Admin: 09/26/19 Dose: 40 mg Potassium Chloride (K-Dur -) 10 meq PO DAILY [facility] Last Admin: 09/26/19 Dose: 10 meq Valacyclovir HCl (Valtrex -) 500 mg PO DAILY [facility] Last Admin: 09/26/19 Dose: 500 mg Gen: NAD at rest Heart: RRR Lung: decreased breath sounds at the bases Abd: soft, nontender Ext: + edema A/P Acute on Chronic Systolic Heart Failure CAD Pneumonia Asthma CKD Multiple Myeloma HTN Hyperlipidemia Hypothyroidism Anemia - Lasix - monitor urine output, creatinine - daily weights - antibiotics per ID - O2 to keep SpO2 >90% - inhaled bronchodilators as needed - DVT prophylaxis Dr Bacon
--- NOTE | 2019-09-26 14:47 | PN ---
Progress Note, Physician History of Present Illness: breathing improving still very tired - Current Medication List Current Medications: Active Medications Acetaminophen (Tylenol -) 650 mg PO Q6H PRN PRN Reason: FEVER Last Admin: 09/25/19 11:51 Dose: 650 mg Albuterol/Ipratropium (Duoneb -) 1 amp NEB Q6H PRN PRN Reason: SHORTNESS OF BREATH Last Admin: 09/26/19 03:30 Dose: 1 amp Allopurinol (Zyloprim -) 300 mg PO DAILY [facility] Last Admin: 09/26/19 09:29 Dose: 300 mg Aspirin (Ecotrin -) 81 mg PO DAILY [facility] Last Admin: 09/26/19 09:29 Dose: 81 mg Atorvastatin Calcium (Lipitor -) 40 mg PO HS [facility] Last Admin: 09/25/19 21:12 Dose: 40 mg Carvedilol (Coreg -) 3.125 mg PO BID [facility] Last Admin: 09/26/19 11:19 Dose: 3.125 mg Escitalopram Oxalate (Lexapro -) 10 mg PO DAILY [facility] Last Admin: 09/26/19 09:29 Dose: 10 mg Furosemide (Lasix Injection -) 40 mg IVPUSH DAILY [facility] Last Admin: 09/26/19 11:19 Dose: 40 mg Meropenem 1 gm/ Dextrose 100 mls @ 200 mls/hr IVPB BID [facility] Last Admin: 09/26/19 09:31 Dose: 200 mls/hr Levothyroxine Sodium (Synthroid -) 75 mcg PO DAILY@0700 [facility] Last Admin: 09/26/19 06:27 Dose: 75 mcg Losartan Potassium (Cozaar -) 25 mg PO DAILY [facility] Last Admin: 09/26/19 09:29 Dose: 25 mg Pantoprazole Sodium (Protonix -) 40 mg PO DAILY [facility] Last Admin: 09/26/19 09:29 Dose: 40 mg Potassium Chloride (K-Dur -) 10 meq PO DAILY [facility] Last Admin: 09/26/19 09:29 Dose: 10 meq Valacyclovir HCl (Valtrex -) 500 mg PO DAILY [facility] Last Admin: 09/26/19 09:29 Dose: 500 mg - Objective Vital Signs: Vital Signs Temperature 98.5 F 09/26/19 08:16 Pulse Rate 95 H 09/26/19 08:16 Respiratory Rate 22 H 09/26/19 11:26 Blood Pressure 97/59 L 09/26/19 11:26 O2 Sat by Pulse Oximetry (%) 98 09/26/19 09:00 Constitutional: Yes: No Distress, Calm Cardiovascular: Yes: S1, S2 Respiratory: Yes: Regular, Poor Air Entry (bases) Gastrointestinal: Yes: Normal Bowel Sounds, Soft Musculoskeletal: Yes: WNL Extremities: Yes: WNL Neurological: Yes: Alert, Oriented Psychiatric: Yes: Alert, Oriented Labs: CBC, BMP 09/23/19 06:05 09/23/19 06:05 INR, PTT INR 1.16 (0.83-1.09) H 09/20/19 04:16 Assessment/Plan Problem List - Problems (1) Anasarca Code(s): R60.1 - GENERALIZED EDEMA (2) Fluid overload Code(s): E87.70 - FLUID OVERLOAD, UNSPECIFIED (3) Hypoxia Code(s): R09.02 - HYPOXEMIA (4) Weakness Code(s): R53.1 - WEAKNESS (5) ASHD (arteriosclerotic heart disease) Code(s): I25.10 - ATHSCL HEART DISEASE OF [place] CORONARY ARTERY W/O ANG PCTRS (6) Acute exacerbation of CHF (congestive heart failure) Code(s): I50.9 - HEART FAILURE, UNSPECIFIED (7) Acute on chronic systolic CHF (congestive heart failure) Code(s): I50.23 - ACUTE ON CHRONIC SYSTOLIC (CONGESTIVE) HEART FAILURE (8) Adult onset hypothyroidism Code(s): E03.8 - OTHER SPECIFIED HYPOTHYROIDISM (9) Anemia Code(s): D64.9 - ANEMIA, UNSPECIFIED (10) CKD (chronic kidney disease) Code(s): N18.9 - CHRONIC KIDNEY DISEASE, UNSPECIFIED (11) Elevated troponin Code(s): R74.8 - ABNORMAL LEVELS OF OTHER SERUM ENZYMES (12) HLD (hyperlipidemia) Code(s): E78.5 - HYPERLIPIDEMIA, UNSPECIFIED Qualifiers: Hyperlipidemia type: unspecified Qualified Code(s): E78.5 - Hyperlipidemia , unspecified (13) HTN (hypertension) Code(s): I10 - ESSENTIAL (PRIMARY) HYPERTENSION Qualifiers: Hypertension type: unspecified Qualified Code(s): I10 - Essential (primary ) hypertension (14) History of heart artery stent Code(s): Z95.5 - PRESENCE OF CORONARY ANGIOPLASTY IMPLANT AND GRAFT (15) Multiple myeloma Code(s): C90.00 - MULTIPLE MYELOMA NOT HAVING ACHIEVED REMISSION Qualifiers: Multiple myeloma remission status: not in remission Qualified Code(s): C90.00 - Multiple myeloma not having achieved remission uti Assessment/Plan continue abx monitor for fever rest as per the team resp support
[2019-09-26] MEDS: ATORVASTATIN CA 40 MG TABLET (FP) PO SCH (21:00)
--- NOTE | 2019-09-26 22:45 | PN ---
Progress Note, Physician History of Present Illness: No new complaints - Current Medication List Current Medications: Active Medications Acetaminophen (Tylenol -) 650 mg PO Q6H PRN PRN Reason: FEVER Last Admin: 09/25/19 11:51 Dose: 650 mg Albuterol/Ipratropium (Duoneb -) 1 amp NEB Q6H PRN PRN Reason: SHORTNESS OF BREATH Last Admin: 09/26/19 03:30 Dose: 1 amp Allopurinol (Zyloprim -) 300 mg PO DAILY [facility] Last Admin: 09/26/19 09:29 Dose: 300 mg Aspirin (Ecotrin -) 81 mg PO DAILY [facility] Last Admin: 09/26/19 09:29 Dose: 81 mg Atorvastatin Calcium (Lipitor -) 40 mg PO HS [facility] Last Admin: 09/26/19 21:00 Dose: 40 mg Carvedilol (Coreg -) 3.125 mg PO BID [facility] Last Admin: 09/26/19 21:00 Dose: Not Given Escitalopram Oxalate (Lexapro -) 10 mg PO DAILY [facility] Last Admin: 09/26/19 09:29 Dose: 10 mg Furosemide (Lasix Injection -) 40 mg IVPUSH DAILY [facility] Last Admin: 09/26/19 11:19 Dose: 40 mg Meropenem 1 gm/ Dextrose 100 mls @ 200 mls/hr IVPB BID [facility] Last Admin: 09/26/19 21:00 Dose: 200 mls/hr Levothyroxine Sodium (Synthroid -) 75 mcg PO DAILY@0700 [facility] Last Admin: 09/26/19 06:27 Dose: 75 mcg Losartan Potassium (Cozaar -) 25 mg PO DAILY [facility] Last Admin: 09/26/19 09:29 Dose: 25 mg Pantoprazole Sodium (Protonix -) 40 mg PO DAILY [facility] Last Admin: 09/26/19 09:29 Dose: 40 mg Potassium Chloride (K-Dur -) 10 meq PO DAILY [facility] Last Admin: 09/26/19 09:29 Dose: 10 meq Valacyclovir HCl (Valtrex -) 500 mg PO DAILY [facility] Last Admin: 09/26/19 09:29 Dose: 500 mg - Objective Vital Signs: Vital Signs Temperature 98.0 F 09/26/19 18:00 Pulse Rate 76 09/26/19 18:00 Respiratory Rate 18 09/26/19 18:00 Blood Pressure 86/48 L 09/26/19 18:00 O2 Sat by Pulse Oximetry (%) 98 09/26/19 09:00 Cardiovascular: Yes: WNL, Regular Rate and Rhythm Respiratory: Yes: WNL, Regular, CTA Bilaterally Gastrointestinal: Yes: WNL, Normal Bowel Sounds, Soft Edema: No Labs: CBC, BMP 09/23/19 06:05 09/23/19 06:05 INR, PTT INR 1.16 (0.83-1.09) H 09/20/19 04:16 Problem List - Problems (1) Acute on chronic systolic CHF (congestive heart failure) Assessment/Plan: Cont IV lasix Monitor electrolytes Code(s): I50.23 - ACUTE ON CHRONIC SYSTOLIC (CONGESTIVE) HEART FAILURE (2) Elevated troponin Assessment/Plan: ?Due to demand ischemia Code(s): R74.8 - ABNORMAL LEVELS OF OTHER SERUM ENZYMES (3) UTI (urinary tract infection) Assessment/Plan: Due to strept agalactiae Cont IV meropenem BC remain negative Code(s): N39.0 - URINARY TRACT INFECTION, SITE NOT SPECIFIED (4) HTN (hypertension) Assessment/Plan: Pt remains hypotension ?Due to dehydration from diarrhea wc has now resolved Losartan restarted Code(s): I10 - ESSENTIAL (PRIMARY) HYPERTENSION Qualifiers: Hypertension type: unspecified Qualified Code(s): I10 - Essential (primary ) hypertension (5) Multiple myeloma Assessment/Plan: Pt has been receiving chemotx and recently RT As per onco Code(s): C90.00 - MULTIPLE MYELOMA NOT HAVING ACHIEVED REMISSION Qualifiers: Multiple myeloma remission status: not in remission Qualified Code(s): C90.00 - Multiple myeloma not having achieved remission (6) Diarrhea Code(s): R19.7 - [place]ARRHEA, UNSPECIFIED Qualifiers: Diarrhea type: unspecified type Qualified Code(s): R19.7 - Diarrhea, unspecified (7) HLD (hyperlipidemia) Assessment/Plan: Cont lipitor Code(s): E78.5 - HYPERLIPIDEMIA, UNSPECIFIED Qualifiers: Hyperlipidemia type: unspecified Qualified Code(s): E78.5 - Hyperlipidemia , unspecified (8) Hypothyroidism Assessment/Plan: Cont levothyroxine Check TSH Code(s): E03.9 - HYPOTHYROIDISM, UNSPECIFIED Qualifiers: Hypothyroidism type: acquired Qualified Code(s): E03.9 - Hypothyroidism, unspecified (9) CAD (coronary artery disease) Code(s): I25.10 - ATHSCL HEART DISEASE OF [place] CORONARY ARTERY W/O ANG PCTRS Qualifiers: (10) Depression Assessment/Plan: Cont lexapro Code(s): F32.9 - MAJOR DEPRESSIVE DISORDER, SINGLE EPISODE, UNSPECIFIED (11) History of heart artery stent Code(s): Z95.5 - PRESENCE OF CORONARY ANGIOPLASTY IMPLANT AND GRAFT
[2019-09-27] MEDS: LEVOTHYROXINE NA 75 MCG TABLET (FP) PO SCH (06:35)
[2019-09-27 07:15] LABS: BASO % 0.9 % (0-2.0); EOS % 0.3 % (0-4.5); HEMATOCRIT 25.3 % (32.4-45.2); HEMOGLOBIN 8.5 GM/dL (10.7-15.3); LYMPH % 16.4 % (8-40); MCH 33.1 pg (25.7-33.7); MCHC 33.4 g/dl (32.0-36.0); MEAN CELL VOLUME 99.2 fl (80-96); MONO % 6.6 % (3.8-10.2); NEUT % 75.8 % (42.8-82.8); PLATELET COUNT 186 K/MM3 (134-434); RBC 2.55 M/mm3 (3.60-5.2); RDW 16.3 % (11.6-15.6); WHITE BLOOD COUNT 3.5 K/mm3 (4.0-10.0)
[2019-09-27 07:48] LABS: ALBUMIN 1.1 g/dl (3.4-5.0); BILIRUBIN,TOTAL 0.4 mg/dL (0.2-1); CALCIUM 7.9 mg/dL (8.5-10.1); CREATININE 2.6 mg/dL (0.55-1.3); TOT PROT 6.4 g/dl (6.4-8.2)
[2019-09-27 08:16] LABS: POTASSIUM 6.4 mmol/L (3.5-5.1)
[2019-09-27] MEDS ORDERED: MEROPENEM 1 GM VIAL (RESTRICTED TO ID) IVPB ONE ×2 (09:18→22:03)
[2019-09-27] MEDS ORDERED: DEXTROSE 5%-WATER 100 ML IVPB ONE ×2 (09:19→22:03)
[2019-09-27] MEDS: valACYclovir HCL 500 MG TABLET (FP) PO SCH (09:56)
[2019-09-27] MEDS: ALLOPURINOL 300 MG TABLET (FP) PO SCH (09:56)
[2019-09-27] MEDS: PANTOPRAZOLE 40 MG TABLET (FP) PO SCH (09:57)
[2019-09-27] MEDS: MEROPENEM 1 GM in DEXTROSE 5%-WATER 100 ML IVPB SCH ×2 (09:57→22:06)
[2019-09-27] MEDS: ASPIRIN COATED 81 MG TABLET.EC PO SCH (09:57)
[2019-09-27] MEDS: CARVEDILOL 3.125 MG TABLET (FP) PO SCH (09:57)
[2019-09-27] MEDS: ESCITALOPRAM OXALATE 10 MG TABLET (FP) PO SCH (09:57)
[2019-09-27] MEDS: POTASSIUM CHLORIDE TABS 10 MEQ TABLET.ER (FP) PO SCH (10:13)
[2019-09-27] MEDS: LOSARTAN POTASSIUM 25 MG TABLET PO SCH (10:13)
[2019-09-27] MEDS: FUROSEMIDE 40 MG/4 ML INJECTABLE VIAL IVPUSH SCH (10:14)
--- NOTE | 2019-09-27 10:14 | PN ---
Progress Note, Physician History of Present Illness: 74 year old black female with PMH HTN, HLD, CAD s/p coronary artery stenting, GERD, multiple myeloma (chemo; radiation directed at abdomen), ? "mild" systolic CHF, on Lasix, rectal hemorrhoids, now presented to ED for diarrhea x2 days associated with generalized weakness, ROGERS. Pt reported she has had loose, watery diarrhea x2 days, and prior to that he had rectal bleeding x2 days (on toilet paper and mixed in stool) that self resolved. She reported she only noticed the bleeding because it was on the toilet paper, as she did not have abdominal or rectal pain. Pt reported generalized weakness and ROGERS, which prompted her to come to the ED. Pt denied nausea, vomiting, fever, abdominal pain, chest pain, increased LE swelling. She reported she believed her lower extremity swelling is actually improving. She also reported noticing a new "rash " to her right hip since last week. - Current Medication List Current Medications: Active Medications Acetaminophen (Tylenol -) 650 mg PO Q6H PRN PRN Reason: FEVER Last Admin: 09/25/19 11:51 Dose: 650 mg Albuterol/Ipratropium (Duoneb -) 1 amp NEB Q6H PRN PRN Reason: SHORTNESS OF BREATH Last Admin: 09/26/19 03:30 Dose: 1 amp Allopurinol (Zyloprim -) 300 mg PO DAILY [facility] Last Admin: 09/27/19 09:56 Dose: 300 mg Aspirin (Ecotrin -) 81 mg PO DAILY [facility] Last Admin: 09/27/19 09:57 Dose: 81 mg Atorvastatin Calcium (Lipitor -) 40 mg PO HS [facility] Last Admin: 09/26/19 21:00 Dose: 40 mg Carvedilol (Coreg -) 3.125 mg PO BID [facility] Last Admin: 09/27/19 09:57 Dose: 3.125 mg Escitalopram Oxalate (Lexapro -) 10 mg PO DAILY [facility] Last Admin: 09/27/19 09:57 Dose: 10 mg Furosemide (Lasix Injection -) 40 mg IVPUSH DAILY [facility] Last Admin: 09/26/19 11:19 Dose: 40 mg Meropenem 1 gm/ Dextrose 100 mls @ 200 mls/hr IVPB BID [facility] Last Admin: 09/27/19 09:57 Dose: 200 mls/hr Levothyroxine Sodium (Synthroid -) 75 mcg PO DAILY@0700 [facility] Last Admin: 09/27/19 06:35 Dose: 75 mcg Losartan Potassium (Cozaar -) 25 mg PO DAILY [facility] Last Admin: 09/26/19 09:29 Dose: 25 mg Pantoprazole Sodium (Protonix -) 40 mg PO DAILY [facility] Last Admin: 09/27/19 09:57 Dose: 40 mg Potassium Chloride (K-Dur -) 10 meq PO DAILY [facility] Last Admin: 09/26/19 09:29 Dose: 10 meq Valacyclovir HCl (Valtrex -) 500 mg PO DAILY [facility] Last Admin: 09/27/19 09:56 Dose: 500 mg - Objective Vital Signs: Vital Signs Temperature 98.7 F 09/27/19 08:54 Pulse Rate 84 09/27/19 08:54 Respiratory Rate 18 09/27/19 08:54 Blood Pressure 97/57 L 09/27/19 08:54 O2 Sat by Pulse Oximetry (%) 98 09/26/19 21:00 Eyes: Yes: WNL, Conjunctiva Clear, EOM Intact HENT: Yes: WNL, Atraumatic, Normocephalic Neck: Yes: WNL, Supple, Trachea Midline Cardiovascular: Yes: WNL, Regular Rate and Rhythm Respiratory: Yes: WNL, Regular, CTA Bilaterally Gastrointestinal: Yes: WNL, Normal Bowel Sounds Genitourinary: Yes: WNL Musculoskeletal: Yes: WNL Extremities: Yes: WNL Edema: Yes Integumentary: Yes: WNL Neurological: Yes: WNL, Alert, Oriented ...Motor Strength: WNL Psychiatric: Yes: WNL Labs: CBC, BMP 09/27/19 06:12 09/27/19 06:12 INR, PTT INR 1.16 (0.83-1.09) H 09/20/19 04:16 Assessment/Plan - Problems (1) Hypoxia Code(s): R09.02 - HYPOXEMIA (2) Weakness Code(s): R53.1 - WEAKNESS (3) ASHD (arteriosclerotic heart disease) Code(s): I25.10 - ATHSCL HEART DISEASE OF [place] CORONARY ARTERY W/O ANG PCTRS (4) Acute on chronic systolic CHF (congestive heart failure) Assessment/Plan: off losartan and furosemide due to raising K and bun/cr F/u BUN/Cr, electrolytes, daily weight, Is and Os. ECHO: severely reduced LVEF; small pericardial effusion which is not hemodynamically significant; pleural effuson. Plan to start carvedilol or metoprolol if BP and HR allow. Code(s): I50.23 - ACUTE ON CHRONIC SYSTOLIC (CONGESTIVE) HEART FAILURE (5) Adult onset hypothyroidism Assessment/Plan: elevated TSH; f/u Free T4. Code(s): E03.8 - OTHER SPECIFIED HYPOTHYROIDISM (6) Anxiety Code(s): F41.9 - ANXIETY DISORDER, UNSPECIFIED (7) Elevated troponin Code(s): R74.8 - ABNORMAL LEVELS OF OTHER SERUM ENZYMES (8) HLD (hyperlipidemia) Assessment/Plan: On statin. LDL elevated in March; f/u lipid profile. Code(s): E78.5 - HYPERLIPIDEMIA, UNSPECIFIED Qualifiers: Hyperlipidemia type: unspecified Qualified Code(s): E78.5 - Hyperlipidemia , unspecified (9) HTN (hypertension) Assessment/Plan: off losartan and furosemide. Would start beta savana if remains stable, even if BP is relatively low-normal , given severity of systolic dysfunction. Code(s): I10 - ESSENTIAL (PRIMARY) HYPERTENSION Qualifiers: Hypertension type: unspecified Qualified Code(s): I10 - Essential (primary ) hypertension (10) History of heart artery stent Code(s): Z95.5 - PRESENCE OF CORONARY ANGIOPLASTY IMPLANT AND GRAFT (11) Multiple myeloma Code(s): C90.00 - MULTIPLE MYELOMA NOT HAVING ACHIEVED REMISSION Qualifiers: Multiple myeloma remission status: not in remission Qualified Code(s): C90.00 - Multiple myeloma not having achieved remission (12) Pancytopenia Code(s): D61.818 - OTHER PANCYTOPENIA
--- NOTE | 2019-09-27 10:32 | EKG ---
Test Reason : Blood Pressure : / mmHG Vent. Rate : 074 BPM Atrial Rate : 074 BPM P-R Int : 154 ms QRS Dur : 128 ms QT Int : 394 ms P-R-T Axes : 049 -23 183 degrees QTc Int : 437 ms NORMAL SINUS RHYTHM LEFT VENTRICULAR HYPERTROPHY WITH QRS WIDENING CANNOT RULE OUT SEPTAL INFARCT (CITED ON OR BEFORE 20-SEP-2019) T WAVE ABNORMALITY, CONSIDER INFERIOR ISCHEMIA T WAVE ABNORMALITY, CONSIDER ANTEROLATERAL ISCHEMIA ABNORMAL ECG WHEN COMPARED WITH ECG OF 20-SEP-2019 07:12, PREMATURE VENTRICULAR COMPLEXES ARE NO LONGER PRESENT Confirmed by Joseluis Prater MD ([id number]) on 09/27/2019 10:31:52 AM Referred By: ZOLTAN BELL Confirmed By:Joseluis Prater MD
[2019-09-27 11:11] LABS: BLOOD UREA NITROGEN 66.8 mg/dL (7-18); CALCIUM 8.4 mg/dL (8.5-10.1); CREATININE 2.6 mg/dL (0.55-1.3)
[2019-09-27 11:17] LABS: POTASSIUM 6.3 mmol/L (3.5-5.1)
--- NOTE | 2019-09-27 12:42 | PN ---
Progress Note, Physician History of Present Illness: starting to feel bettter breathing better - Current Medication List Current Medications: Active Medications Acetaminophen (Tylenol -) 650 mg PO Q6H PRN PRN Reason: FEVER Last Admin: 09/25/19 11:51 Dose: 650 mg Albuterol/Ipratropium (Duoneb -) 1 amp NEB Q6H PRN PRN Reason: SHORTNESS OF BREATH Last Admin: 09/26/19 03:30 Dose: 1 amp Allopurinol (Zyloprim -) 300 mg PO DAILY [facility] Last Admin: 09/27/19 09:56 Dose: 300 mg Aspirin (Ecotrin -) 81 mg PO DAILY [facility] Last Admin: 09/27/19 09:57 Dose: 81 mg Atorvastatin Calcium (Lipitor -) 40 mg PO HS [facility] Last Admin: 09/26/19 21:00 Dose: 40 mg Carvedilol (Coreg -) 3.125 mg PO BID [facility] Last Admin: 09/27/19 09:57 Dose: 3.125 mg Escitalopram Oxalate (Lexapro -) 10 mg PO DAILY [facility] Last Admin: 09/27/19 09:57 Dose: 10 mg Furosemide (Lasix Injection -) 40 mg IVPUSH DAILY [facility] Last Admin: 09/27/19 10:14 Dose: Not Given Meropenem 1 gm/ Dextrose 100 mls @ 200 mls/hr IVPB BID [facility] Last Admin: 09/27/19 09:57 Dose: 200 mls/hr Levothyroxine Sodium (Synthroid -) 75 mcg PO DAILY@0700 [facility] Last Admin: 09/27/19 06:35 Dose: 75 mcg Losartan Potassium (Cozaar -) 25 mg PO DAILY [facility] Last Admin: 09/27/19 10:13 Dose: Not Given Pantoprazole Sodium (Protonix -) 40 mg PO DAILY [facility] Last Admin: 09/27/19 09:57 Dose: 40 mg Potassium Chloride (K-Dur -) 10 meq PO DAILY [facility] Last Admin: 09/27/19 10:13 Dose: Not Given Valacyclovir HCl (Valtrex -) 500 mg PO DAILY [facility] Last Admin: 09/27/19 09:56 Dose: 500 mg - Objective Vital Signs: Vital Signs Temperature 98.7 F 09/27/19 08:54 Pulse Rate 84 09/27/19 08:54 Respiratory Rate 18 09/27/19 08:54 Blood Pressure 97/57 L 09/27/19 08:54 O2 Sat by Pulse Oximetry (%) 98 09/26/19 21:00 Constitutional: Yes: No Distress, Calm Cardiovascular: Yes: S1, S2 Respiratory: Yes: Regular, On Nasal O2, Poor Air Entry (bases) Gastrointestinal: Yes: Normal Bowel Sounds, Soft Musculoskeletal: Yes: WNL Extremities: Yes: WNL Neurological: Yes: Alert, Oriented Psychiatric: Yes: Alert, Oriented Labs: CBC, BMP 09/27/19 06:12 09/27/19 08:11 INR, PTT INR 1.16 (0.83-1.09) H 09/20/19 04:16 Assessment/Plan Problem List - Problems (1) Anasarca Code(s): R60.1 - GENERALIZED EDEMA (2) Fluid overload Code(s): E87.70 - FLUID OVERLOAD, UNSPECIFIED (3) Hypoxia Code(s): R09.02 - HYPOXEMIA (4) Weakness Code(s): R53.1 - WEAKNESS (5) ASHD (arteriosclerotic heart disease) Code(s): I25.10 - ATHSCL HEART DISEASE OF [place] CORONARY ARTERY W/O ANG PCTRS (6) Acute exacerbation of CHF (congestive heart failure) Code(s): I50.9 - HEART FAILURE, UNSPECIFIED (7) Acute on chronic systolic CHF (congestive heart failure) Code(s): I50.23 - ACUTE ON CHRONIC SYSTOLIC (CONGESTIVE) HEART FAILURE (8) Adult onset hypothyroidism Code(s): E03.8 - OTHER SPECIFIED HYPOTHYROIDISM (9) Anemia Code(s): D64.9 - ANEMIA, UNSPECIFIED (10) CKD (chronic kidney disease) Code(s): N18.9 - CHRONIC KIDNEY DISEASE, UNSPECIFIED (11) Elevated troponin Code(s): R74.8 - ABNORMAL LEVELS OF OTHER SERUM ENZYMES (12) HLD (hyperlipidemia) Code(s): E78.5 - HYPERLIPIDEMIA, UNSPECIFIED Qualifiers: Hyperlipidemia type: unspecified Qualified Code(s): E78.5 - Hyperlipidemia , unspecified (13) HTN (hypertension) Code(s): I10 - ESSENTIAL (PRIMARY) HYPERTENSION Qualifiers: Hypertension type: unspecified Qualified Code(s): I10 - Essential (primary ) hypertension (14) History of heart artery stent Code(s): Z95.5 - PRESENCE OF CORONARY ANGIOPLASTY IMPLANT AND GRAFT (15) Multiple myeloma Code(s): C90.00 - MULTIPLE MYELOMA NOT HAVING ACHIEVED REMISSION Qualifiers: Multiple myeloma remission status: not in remission Qualified Code(s): C90.00 - Multiple myeloma not having achieved remission uti hypotension Assessment/Plan continue abx monitor for fever pressors close monitoring rest as per icu cc 40 min
--- NOTE | 2019-09-27 12:44 | PN ---
Progress Note, Physician History of Present Illness: pulmonary alert,comfortable,oob-chair,-sob - Current Medication List Current Medications: Active Medications Acetaminophen (Tylenol -) 650 mg PO Q6H PRN PRN Reason: FEVER Last Admin: 09/25/19 11:51 Dose: 650 mg Albuterol/Ipratropium (Duoneb -) 1 amp NEB Q6H PRN PRN Reason: SHORTNESS OF BREATH Last Admin: 09/26/19 03:30 Dose: 1 amp Allopurinol (Zyloprim -) 300 mg PO DAILY [facility] Last Admin: 09/27/19 09:56 Dose: 300 mg Aspirin (Ecotrin -) 81 mg PO DAILY [facility] Last Admin: 09/27/19 09:57 Dose: 81 mg Atorvastatin Calcium (Lipitor -) 40 mg PO HS [facility] Last Admin: 09/26/19 21:00 Dose: 40 mg Carvedilol (Coreg -) 3.125 mg PO BID [facility] Last Admin: 09/27/19 09:57 Dose: 3.125 mg Escitalopram Oxalate (Lexapro -) 10 mg PO DAILY [facility] Last Admin: 09/27/19 09:57 Dose: 10 mg Furosemide (Lasix Injection -) 40 mg IVPUSH DAILY [facility] Last Admin: 09/27/19 10:14 Dose: Not Given Meropenem 1 gm/ Dextrose 100 mls @ 200 mls/hr IVPB BID [facility] Last Admin: 09/27/19 09:57 Dose: 200 mls/hr Levothyroxine Sodium (Synthroid -) 75 mcg PO DAILY@0700 [facility] Last Admin: 09/27/19 06:35 Dose: 75 mcg Losartan Potassium (Cozaar -) 25 mg PO DAILY [facility] Last Admin: 09/27/19 10:13 Dose: Not Given Pantoprazole Sodium (Protonix -) 40 mg PO DAILY [facility] Last Admin: 09/27/19 09:57 Dose: 40 mg Potassium Chloride (K-Dur -) 10 meq PO DAILY [facility] Last Admin: 09/27/19 10:13 Dose: Not Given Valacyclovir HCl (Valtrex -) 500 mg PO DAILY [facility] Last Admin: 09/27/19 09:56 Dose: 500 mg - Objective Vital Signs: Vital Signs Temperature 98.7 F 09/27/19 08:54 Pulse Rate 84 09/27/19 08:54 Respiratory Rate 18 09/27/19 08:54 Blood Pressure 97/57 L 09/27/19 08:54 O2 Sat by Pulse Oximetry (%) 98 09/26/19 21:00 Constitutional: Yes: Well Nourished, Calm Eyes: Yes: WNL HENT: Yes: WNL Neck: Yes: WNL Cardiovascular: Yes: Regular Rate and Rhythm, S1, S2 Respiratory: Yes: Diminished Gastrointestinal: Yes: Normal Bowel Sounds, Soft Extremities: Yes: WNL Edema: Yes Labs: CBC, BMP 09/27/19 06:12 09/27/19 08:11 INR, PTT INR 1.16 (0.83-1.09) H 09/20/19 04:16 Problem List - Problems (1) Anasarca Code(s): R60.1 - GENERALIZED EDEMA (2) Fluid overload Code(s): E87.70 - FLUID OVERLOAD, UNSPECIFIED (3) Hypoxia Code(s): R09.02 - HYPOXEMIA (4) Weakness Code(s): R53.1 - WEAKNESS (5) ASHD (arteriosclerotic heart disease) Code(s): I25.10 - ATHSCL HEART DISEASE OF [place] CORONARY ARTERY W/O ANG PCTRS (6) Acute exacerbation of CHF (congestive heart failure) Code(s): I50.9 - HEART FAILURE, UNSPECIFIED (7) Acute on chronic systolic CHF (congestive heart failure) Code(s): I50.23 - ACUTE ON CHRONIC SYSTOLIC (CONGESTIVE) HEART FAILURE (8) Adult onset hypothyroidism Code(s): E03.8 - OTHER SPECIFIED HYPOTHYROIDISM (9) Anemia Code(s): D64.9 - ANEMIA, UNSPECIFIED (10) CKD (chronic kidney disease) Code(s): N18.9 - CHRONIC KIDNEY DISEASE, UNSPECIFIED (11) Elevated troponin Code(s): R74.8 - ABNORMAL LEVELS OF OTHER SERUM ENZYMES (12) HLD (hyperlipidemia) Code(s): E78.5 - HYPERLIPIDEMIA, UNSPECIFIED Qualifiers: Hyperlipidemia type: unspecified Qualified Code(s): E78.5 - Hyperlipidemia , unspecified (13) HTN (hypertension) Code(s): I10 - ESSENTIAL (PRIMARY) HYPERTENSION Qualifiers: Hypertension type: unspecified Qualified Code(s): I10 - Essential (primary ) hypertension (14) History of heart artery stent Code(s): Z95.5 - PRESENCE OF CORONARY ANGIOPLASTY IMPLANT AND GRAFT (15) Multiple myeloma Code(s): C90.00 - MULTIPLE MYELOMA NOT HAVING ACHIEVED REMISSION Qualifiers: Multiple myeloma remission status: not in remission Qualified Code(s): C90.00 - Multiple myeloma not having achieved remission Assessment/Plan IMP ACUTE HYPOXEMIC RESPIRATORY FAILURE improved ACUTE ON CHRONIC SYSTOLIC/DIASTOLIC HF clinically improved SEVERE LV DYSFUNCTION BILATERAL PLEURAL EFFUSIONS + TROPONIN MULTIPLE MYELOMA ON CHEMO/RT HTN ASHD S/O NSTEMI,S/P HOLLY ANEMIA RECTAL BLEED HYPOTHYROID HLD PLAN LASIX O2 DAILY WTS STRICT I+OS MONITOR LYTES,H+H NORMAL TRANSFUSION THRESHOLD F/U CHEST X-RAYS ABX PER ID DR GREY Problem List - Problems (1) Anasarca Code(s): R60.1 - GENERALIZED EDEMA (2) Fluid overload Code(s): E87.70 - FLUID OVERLOAD, UNSPECIFIED (3) Hypoxia Code(s): R09.02 - HYPOXEMIA (4) Weakness Code(s): R53.1 - WEAKNESS (5) ASHD (arteriosclerotic heart disease) Code(s): I25.10 - ATHSCL HEART DISEASE OF [place] CORONARY ARTERY W/O ANG PCTRS (6) Acute exacerbation of CHF (congestive heart failure) Code(s): I50.9 - HEART FAILURE, UNSPECIFIED (7) Acute on chronic systolic CHF (congestive heart failure) Code(s): I50.23 - ACUTE ON CHRONIC SYSTOLIC (CONGESTIVE) HEART FAILURE (8) Adult onset hypothyroidism Code(s): E03.8 - OTHER SPECIFIED HYPOTHYROIDISM (9) Anemia Code(s): D64.9 - ANEMIA, UNSPECIFIED (10) CKD (chronic kidney disease) Code(s): N18.9 - CHRONIC KIDNEY DISEASE, UNSPECIFIED (11) Elevated troponin Code(s): R74.8 - ABNORMAL LEVELS OF OTHER SERUM ENZYMES (12) HLD (hyperlipidemia) Code(s): E78.5 - HYPERLIPIDEMIA, UNSPECIFIED Qualifiers: Hyperlipidemia type: unspecified Qualified Code(s): E78.5 - Hyperlipidemia , unspecified (13) HTN (hypertension) Code(s): I10 - ESSENTIAL (PRIMARY) HYPERTENSION Qualifiers: Hypertension type: unspecified Qualified Code(s): I10 - Essential (primary ) hypertension (14) History of heart artery stent Code(s): Z95.5 - PRESENCE OF CORONARY ANGIOPLASTY IMPLANT AND GRAFT (15) Multiple myeloma Code(s): C90.00 - MULTIPLE MYELOMA NOT HAVING ACHIEVED REMISSION Qualifiers: Multiple myeloma remission status: not in remission Qualified Code(s): C90.00 - Multiple myeloma not having achieved remission
[2019-09-27] MEDS ORDERED: SODIUM POLYSTYRENE SULFONATE 15 GM/60 ML BOTTLE PO STA (13:21)
[2019-09-27] MEDS ORDERED: SODIUM CHLORIDE 500 ML IV STA (14:00)
[2019-09-27] MEDS ORDERED: SODIUM BICARBONATE 8.4% 50 MEQ/50 ML DISP.SYRIN IVPUSH ONE (14:00)
[2019-09-27] MEDS ORDERED: CALCIUM GLUCONATE 10% - 1,000 MG/10 ML VIAL IVPB ONE (14:01)
[2019-09-27] MEDS ORDERED: DEXTROSE 50%-WATER - 25 GM/50 ML VIAL IVPUSH ONE (14:01)
[2019-09-27] MEDS ORDERED: INSULIN REGULAR HUMAN 100 UNITS/ML *VIAL SQ ONE (14:01)
--- NOTE | 2019-09-27 14:27 | CONSULT ---
Consultation: REQUESTING PROVIDER: Dr. Puckett CONSULT SERVICE: Nephrology HISTORY OF PRESENT ILLNESS: Patient is a 73 year old female with history of multiple myeloma, amyloidosis, chronic anemia, hypertension, hyperlipidemia, hypothyroidism, gastroesophageal reflux, presented with complaint of generalized weakness and bloody diarrhea. Patient endorses the hematochezia has since resolved. Patient denies taking aspirin or NSAIDs at home. Currently, she denies chest pain, palpitations, abdominal pain, nausea, vomiting. Nephrology service consulted fro DEBBIE with elevation of BUN/ Cr to 66/ 2.6. Concurrent hyperkalemia to 6.4 noted. Past medical history: multiple myeloma, amyloidosis, chronic anemia, hypertension, hyperlipidemia, hypothyroidism, gastroesophageal reflux Past surgical history: Hiatal hernia repair (two years ago), hysterectomy, bilateral tubal ligation. Family history: Mother: due to [place] at 78 years old Father: Prostate cancer, at 94 years old Allergies: Penicillin Social: Lives in [place] with son, and grandchildren. 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 Former smoker. Admits 3-5 cigarettes/ day for approx 10 years. Quit 1977. Drinks alcohol (1- 2 drinks) on special occasion. Ambulates with cane. Able to walk from kitchen to bathroom. Limited by "heaviness" and swelling within lower extremities. REVIEW OF SYSTEMS: As per HPI PHYSICAL EXAMINATION Vital Signs - 24 hr 09/26/19 09/26/19 09/26/19 14:45 18:00 21:00 Temperature 98.0 F 98.0 F Pulse Rate 91 H 76 Respiratory 20 18 Rate Blood Pressure 104/70 86/48 L O2 Sat by Pulse 98 Oximetry (%) 09/26/19 09/27/19 09/27/19 22:00 01:57 05:51 Temperature 98.9 F 98.0 F 97.8 F Pulse Rate 79 78 82 Respiratory 18 18 18 Rate Blood Pressure 85/53 L 89/54 L 94/54 L O2 Sat by Pulse Oximetry (%) 09/27/19 09/27/19 09/27/19 08:54 09:00 13:33 Temperature 98.7 F Pulse Rate 84 67 Respiratory 18 18 Rate Blood Pressure 97/57 L 77/36 L O2 Sat by Pulse 96 Oximetry (%) GENERAL: Awake, alert, and fully oriented, in no acute distress. HEENT: PERRL, EOMI. Dry mcous membranes LUNGS: Breath sounds equal, clear to auscultation bilaterally. No wheezes, and no crackles. No accessory muscle use. HEART: Regular rate and rhythm, normal S1 and S2 without murmur, rub or gallop. ABDOMEN: Soft, nontender, not distended, normoactive bowel sounds, no guarding, no rebound, no masses. No hepatomegaly or splenomegaly. EXTREMITIES: 2+ pulses, warm, well-perfused. No peripheral edema. NEUROLOGICAL: Cranial nerves II-XII intact. Normal speech SKIN: Warm, dry. Laboratory Results - last 24 hr 09/27/19 09/27/19 09/27/19 06:12 06:12 08:11 WBC 3.5 L RBC 2.55 L Hgb 8.5 L Hct 25.3 L MCV 99.2 H MCH 33.1 MCHC 33.4 RDW 16.3 H Plt Count 186 D MPV 9.0 Absolute Neuts (auto) 2.6 Neutrophils % 75.8 Lymphocytes % 16.4 D Monocytes % 6.6 Eosinophils % 0.3 Basophils % 0.9 Nucleated RBC % 0 Sodium 133 L 132 L Potassium 6.4 H* 6.3 H* Chloride 106 105 Carbon Dioxide 22 20 L Anion Gap 6 L 7 L BUN 66.0 H 66.8 H Creatinine 2.6 H 2.6 H Est GFR (CKD-EPI)AfAm 20.10 20.10 Est GFR (CKD-EPI)NonAf 17.34 17.34 Random Glucose 74 86 Calcium 7.9 L 8.4 L Total Bilirubin 0.4 AST 13 L ALT 10 L Alkaline Phosphatase 52 Total Protein 6.4 Albumin 1.1 L Active Medications Generic Name Dose Route Start Last Admin Trade Name Freq PRN Reason Stop Dose Admin Acetaminophen 650 mg 09/20/19 22:25 09/25/19 11:51 Tylenol - PO 650 mg Q6H PRN Administration FEVER Albuterol Sulfate 1 amp 09/27/19 14:15 Ventolin 0.083% Nebulizer Soln - NEB 09/27/19 14:46 Q15M [facility] Albuterol/Ipratropium 1 amp 09/20/19 12:15 09/26/19 03:30 Duoneb - NEB 1 amp Q6H PRN Administration SHORTNESS OF BREATH Allopurinol 300 mg 09/21/19 10:00 09/27/19 09:56 Zyloprim - PO 300 mg DAILY [facility] Administration Aspirin 81 mg 09/25/19 10:00 09/27/19 09:57 Ecotrin - PO 81 mg DAILY [facility] Administration Atorvastatin Calcium 40 mg 09/20/19 22:00 09/26/19 21:00 Lipitor - PO 40 mg HS [facility] Administration Calcium Gluconate 1,000 mg 09/27/19 14:01 Calcium Gluconate 10% - IVPB 09/27/19 14:02 ONCE ONE Carvedilol 3.125 mg 09/25/19 10:00 09/27/19 09:57 Coreg - PO 3.125 mg BID [facility] Administration Dextrose 25 gm 09/27/19 14:01 D50w (Vial) - IVPUSH 09/27/19 14:02 NOW ONE Escitalopram Oxalate 10 mg 09/21/19 10:00 09/27/19 09:57 Lexapro - PO 10 mg DAILY [facility] Administration Furosemide 40 mg 09/21/19 10:00 09/27/19 10:14 Lasix Injection - IVPUSH Not Given DAILY [facility] Meropenem 1 gm/ Dextrose 100 mls @ 200 mls/hr 09/21/19 18:30 09/27/19 09:57 IVPB 200 mls/hr BID [facility] Administration Sodium Chloride 500 mls @ 500 mls/hr 09/27/19 14:00 Normal Saline - IV 09/27/19 14:59 ASDIR STA Insulin Aspart 10 units 09/27/19 14:30 Novolog Vial SQ 09/27/19 14:31 ONCE ONE Levothyroxine Sodium 75 mcg 09/21/19 07:00 09/27/19 06:35 Synthroid - PO 75 mcg DAILY@0700 [facility] Administration Losartan Potassium 25 mg 09/23/19 10:00 09/27/19 10:13 Cozaar - PO Not Given DAILY [facility] Pantoprazole Sodium 40 mg 09/21/19 10:00 09/27/19 09:57 Protonix - PO 40 mg DAILY [facility] Administration Sodium Bicarbonate 50 meq 09/27/19 14:00 Sodium Bicarbonate 8.4% - IVPUSH 09/27/19 14:01 ONCE ONE Sodium Zirconium Cyclosilicate 10 gm 09/27/19 14:00 Lokelma PO DAILY [facility] Valacyclovir HCl 500 mg 09/21/19 10:00 09/27/19 09:56 Valtrex - PO 500 mg DAILY [facility] Administration ASSESSMENT/PLAN: Patient is a 73 year old female with history of multiple myeloma, amyloidosis, chronic anemia, hypertension, hyperlipidemia, hypothyroidism, gastroesophageal reflux, presented with complaint of generalized weakness and bloody diarrhea. DEBBIE on CKD -Likely multifactorial given patient's amyloid, and multiple myeloma. Patient appears clinically dry, and there may also be concurrent pre-renal etiology. -4+ proteinuria noted on admision urialysis. -Bolus with IV normal saline 500mg IV -Follow BP closely, hypotension noted. -Will order urine protein to creatinine ratio Hyperkalemia -Potassium 6.3, and 6.4 on repeat today -Insulin 10 units subq,with 1 amp D50 one time dose ordered STAT -Calcium gluconate 1000mg IV STAT -Lokelma 10mg PO daily -Albuterol X3 treatments -Follow repeat BMP Disposition We will continue to follow the patient. Thank you for this consultative opportunity. Visit type - Emergency Visit Emergency Visit: Yes ED Registration Date: 09/20/19 Care time: The patient presented to the Emergency Department on the above date and was hospitalized for further evaluation of their emergent condition. - New Patient This patient is new to me today: Yes Date on this admission: 09/27/19 - Critical Care Critical Care patient: No ATTENDING PHYSICIAN STATEMENT I saw and evaluated the patient. I reviewed the resident's note and discussed the case with the resident. I agree with the resident's findings and plan as documented. SUBJECTIVE: OBJECTIVE: ASSESSMENT AND PLAN:
[2019-09-27] MEDS ORDERED: INSULIN (NOVOLOG) ASPART 100 UNITS/ML 10ML VIAL SQ ONE (14:30)
[2019-09-27] MEDS ORDERED: SODIUM BICARBONATE 8.4% 50 MEQ/50 ML VIAL IVPUSH ONE (15:30)
[2019-09-27] MEDS: ALBUTEROL SO4 0.083% IH SOL 2.5 MG/3 ML VIAL.NEB. NEB SCH ×3 (16:00→16:30)
[2019-09-27] MEDS ORDERED: INSULIN REGULAR HUMAN 100 UNITS/ML *VIAL IVPUSH ONE (16:08)
[2019-09-27] MEDS: SODIUM ZIRCONIUM CYCLOSILICATE (LOKELMA) 5 GM PACKET PO SCH (17:07)
--- NOTE | 2019-09-27 17:43 | PN ---
Teaching Attending Note Name of Resident: Rober Tapia (Nephrology) ATTENDING PHYSICIAN STATEMENT I saw and evaluated the patient. I reviewed the resident's note and discussed the case with the resident. I agree with the resident's findings and plan as documented. Renal Pt is a 73 year old female with pmhx of amyloidosis and multiple myeloma who presents with weakness and diarrhea. She was found to be in renal failure and I was called to evaluate her. She does complain of edema and shortness of breath. pmhx amyloid ckd proteinuria myeloma ros malaise, GI bleed family hx non contrib soc hx denies Current Medications Generic Name Dose Route Start Last Admin Trade Name Freq PRN Reason Stop Dose Admin Acetaminophen 650 mg 09/20/19 22:25 09/25/19 11:51 Tylenol - PO 650 mg Q6H PRN Administration FEVER Albuterol/Ipratropium 1 amp 09/20/19 12:15 09/26/19 03:30 Duoneb - NEB 1 amp Q6H PRN Administration SHORTNESS OF BREATH Allopurinol 300 mg 09/21/19 10:00 09/27/19 09:56 Zyloprim - PO 300 mg DAILY [facility] Administration Aspirin 81 mg 09/25/19 10:00 09/27/19 09:57 Ecotrin - PO 81 mg DAILY [facility] Administration Atorvastatin Calcium 40 mg 09/20/19 22:00 09/26/19 21:00 Lipitor - PO 40 mg HS [facility] Administration Carvedilol 3.125 mg 09/25/19 10:00 09/27/19 09:57 Coreg - PO 3.125 mg BID [facility] Administration Escitalopram Oxalate 10 mg 09/21/19 10:00 09/27/19 09:57 Lexapro - PO 10 mg DAILY [facility] Administration Furosemide 40 mg 09/21/19 10:00 09/27/19 10:14 Lasix Injection - IVPUSH Not Given DAILY [facility] Meropenem 1 gm/ Dextrose 100 mls @ 200 mls/hr 09/21/19 18:30 09/27/19 09:57 IVPB 200 mls/hr BID [facility] Administration Levothyroxine Sodium 75 mcg 09/21/19 07:00 09/27/19 06:35 Synthroid - PO 75 mcg DAILY@0700 [facility] Administration Losartan Potassium 25 mg 09/23/19 10:00 09/27/19 10:13 Cozaar - PO Not Given DAILY [facility] Pantoprazole Sodium 40 mg 09/21/19 10:00 09/27/19 09:57 Protonix - PO 40 mg DAILY [facility] Administration Sodium Zirconium Cyclosilicate 10 gm 09/27/19 14:00 09/27/19 17:07 Lokelma PO 10 gm DAILY [facility] Administration Valacyclovir HCl 500 mg 09/21/19 10:00 09/27/19 09:56 Valtrex - PO 500 mg DAILY [facility] Administration Last Vital Signs Temp Pulse Resp BP Pulse Ox 97.4 F L 65 18 83/54 L 96 09/27/19 15:00 09/27/19 15:00 09/27/19 15:00 09/27/19 15:00 09/27/19 09:00 Laboratory Tests 09/20/19 09/27/19 09/27/19 06:26 06:12 06:12 Hgb 8.5 L Sodium Potassium 6.4 H* BUN Creatinine Urine Protein 4+ H 09/27/19 08:11 Hgb Sodium 132 L Potassium 6.3 H* BUN 66.8 H Creatinine 2.6 H Urine Protein cardio s1s2 pulm on 02 GI soft ext edema neuro awake and alert skin neg rash Impression 1. proteinuria 2. multiple myeloma 3. amyloid 4. dizziness 5. hypotension 6. HLD 7. hypothyroidism 8. anemia 9. CKD 10. fluid overload 11. hypotension Plan - 250 bolus for hypotension - stop cozaar - stop potassium supplements - cont lasix - potassium treated medically - may need pressors if bp not improved
[2019-09-27 19:48] LABS: BLOOD UREA NITROGEN 61.9 mg/dL (7-18); CALCIUM 8.1 mg/dL (8.5-10.1); CREATININE 2.8 mg/dL (0.55-1.3); POTASSIUM 5.6 mmol/L (3.5-5.1)
[2019-09-27] MEDS ORDERED: SODIUM ZIRCONIUM CYCLOSILICATE (LOKELMA) 5 GM PACKET PO ONE (20:30)
--- NOTE | 2019-09-27 20:36 | PN ---
Progress Note (short form) - Note Progress Note: Patient seen and examined Events noted Hypotensive, hyperkalemic, DEBBIE . Medical treatment of hyperkalemia. Fluid challenge. Last Vital Signs Temp Pulse Resp BP Pulse Ox 97.4 F L 72 18 85/43 L 96 09/27/19 15:00 09/27/19 17:05 09/27/19 17:05 09/27/19 17:05 09/27/19 09:00 CBC, BMP 09/27/19 06:12 09/27/19 18:30 Current Medications Generic Name Dose Route Start Last Admin Trade Name Freq PRN Reason Stop Dose Admin Acetaminophen 650 mg 09/20/19 22:25 09/25/19 11:51 Tylenol - PO 650 mg Q6H PRN Administration FEVER Albuterol/Ipratropium 1 amp 09/20/19 12:15 09/26/19 03:30 Duoneb - NEB 1 amp Q6H PRN Administration SHORTNESS OF BREATH Allopurinol 300 mg 09/21/19 10:00 09/27/19 09:56 Zyloprim - PO 300 mg DAILY [facility] Administration Aspirin 81 mg 09/25/19 10:00 09/27/19 09:57 Ecotrin - PO 81 mg DAILY [facility] Administration Atorvastatin Calcium 40 mg 09/20/19 22:00 09/26/19 21:00 Lipitor - PO 40 mg HS [facility] Administration Escitalopram Oxalate 10 mg 09/21/19 10:00 09/27/19 09:57 Lexapro - PO 10 mg DAILY [facility] Administration Furosemide 40 mg 09/21/19 10:00 09/27/19 10:14 Lasix Injection - IVPUSH Not Given DAILY [facility] Meropenem 1 gm/ Dextrose 100 mls @ 200 mls/hr 09/21/19 18:30 09/27/19 09:57 IVPB 200 mls/hr BID [facility] Administration Levothyroxine Sodium 75 mcg 09/21/19 07:00 09/27/19 06:35 Synthroid - PO 75 mcg DAILY@0700 [facility] Administration Pantoprazole Sodium 40 mg 09/21/19 10:00 09/27/19 09:57 Protonix - PO 40 mg DAILY [facility] Administration Sodium Zirconium Cyclosilicate 10 gm 09/27/19 14:00 09/27/19 17:07 Lokelma PO 10 gm DAILY [facility] Administration Valacyclovir HCl 500 mg 09/21/19 10:00 09/27/19 09:56 Valtrex - PO 500 mg DAILY [facility] Administration Cor: RSR, No murmurs, No gallops Lungs: diminished breath sounds bilaterally Abd: Soft, Normal bowel sounds, No organomegaly Ext:No significant edema Skin: No rashes, Integument intact Impression: Multiple myeloma Amyloid DEBBIE Hyperkalemia Hypotensive Plan: per renal fluid bolus - if noresponse to same - transfer for pressor and ICU monitoring and treatment
--- NOTE | 2019-09-27 20:37 | CONSULT ---
Consultation: REQUESTING PROVIDER: Dr. Hameed CONSULT REQUEST: We have been asked to medically evaluate this patient for ( specify). HISTORY OF PRESENT ILLNESS: This is a 73 year old female with PMH of multiple myeloma (currently undergoing treatment), amyloidosis, chronic anemia, hypertension, hyperlipidemia, hypothyroidism, GERD. She presented to the ER on 09/20 with complaints diarrhea of 2 days, associated with rectal bleeding 2 days before presenting. She noticed the blood on her toilet paper, and also mixed with stool. The bleeding resolved before presentation to the ER, and she did not complain of any abdominal pain. She did not complain of any nausea, vomiting, fever, abdominal pain, chest pain. ICU was consulted by Nephro for concern of ATN 2/2 hypoperfusion and hypotension non responsive to fluids. She had a hiatal hernia repair (two years ago), hysterectomy, and bilateral tubal ligation. She has positive family history of CO at 78 years old and Prostate cancer, at 89 years old She lives in [place] with her son, and grandchildren. She has a 3 pack year of smoking history, quit in 1977. She only drinks alcohol on special occasions. She ambulates with a cane, and is able to walk from kitchen to bathroom. REVIEW OF SYSTEMS: CONSTITUTIONAL: Absent: fever, chills, diaphoresis, generalized weakness, malaise, loss of appetite, weight change HEENT: Absent: rhinorrhea, nasal congestion, throat pain, throat swelling, difficulty swallowing, mouth swelling, ear pain, eye pain, visual changes CARDIOVASCULAR: Absent: chest pain, syncope, palpitations, irregular heart rate, lightheadedness , peripheral edema RESPIRATORY: Absent: cough, shortness of breath, dyspnea with exertion, orthopnea, wheezing, stridor, hemoptysis GASTROINTESTINAL: Absent: abdominal pain, abdominal distension, nausea, vomiting, diarrhea, constipation, melena, hematochezia GENITOURINARY: Absent: dysuria, frequency, urgency, hesitancy, hematuria, flank pain, genital pain MUSCULOSKELETAL: Absent: myalgia, arthralgia, joint swelling, back pain, neck pain SKIN: Absent: rash, itching, pallor HEMATOLOGIC/IMMUNOLOGIC: Absent: easy bleeding, easy bruising, lymphadenopathy, frequent infections ENDOCRINE: Absent: unexplained weight gain, unexplained weight loss, heat intolerance, cold intolerance NEUROLOGIC: Absent: headache, focal weakness or paresthesias, dizziness, unsteady gait, seizure, mental status changes, bladder or bowel incontinence PSYCHIATRIC: Absent: anxiety, depression, suicidal or homicidal ideation, hallucinations. PHYSICAL EXAMINATION Vital Signs - 24 hr 09/26/19 09/26/19 09/27/19 21:00 22:00 01:57 Temperature 98.9 F 98.0 F Pulse Rate 79 78 Respiratory 18 18 Rate Blood Pressure 85/53 L 89/54 L O2 Sat by Pulse 98 Oximetry (%) 09/27/19 09/27/19 09/27/19 05:51 08:54 09:00 Temperature 97.8 F 98.7 F Pulse Rate 82 84 Respiratory 18 18 Rate Blood Pressure 94/54 L 97/57 L O2 Sat by Pulse 96 Oximetry (%) 09/27/19 09/27/19 09/27/19 13:33 15:00 17:05 Temperature 97.4 F L Pulse Rate 67 65 72 Respiratory 18 18 18 Rate Blood Pressure 77/36 L 83/54 L 85/43 L O2 Sat by Pulse Oximetry (%) GENERAL: AOx3 EYES: ZOILA, EOMI HEENT: Dry mucus membranes LUNGS: Diminished breath sounds B/L HEART: RRR, no rubs or murmurs ABDOMEN: Soft, nontender, not distended EXTREMITIES: 2+ pitting edema B/L NEUROLOGICAL: Motor 4/5, sensations intact SKIN: Warm, dry. Laboratory Results - last 24 hr 09/27/19 09/27/19 09/27/19 06:12 06:12 08:11 WBC 3.5 L RBC 2.55 L Hgb 8.5 L Hct 25.3 L MCV 99.2 H MCH 33.1 MCHC 33.4 RDW 16.3 H Plt Count 186 D MPV 9.0 Absolute Neuts (auto) 2.6 Neutrophils % 75.8 Lymphocytes % 16.4 D Monocytes % 6.6 Eosinophils % 0.3 Basophils % 0.9 Nucleated RBC % 0 Sodium 133 L 132 L Potassium 6.4 H* 6.3 H* Chloride 106 105 Carbon Dioxide 22 20 L Anion Gap 6 L 7 L BUN 66.0 H 66.8 H Creatinine 2.6 H 2.6 H Est GFR (CKD-EPI)AfAm 20.10 20.10 Est GFR (CKD-EPI)NonAf 17.34 17.34 POC Glucometer Random Glucose 74 86 Calcium 7.9 L 8.4 L Total Bilirubin 0.4 AST 13 L ALT 10 L Alkaline Phosphatase 52 Total Protein 6.4 Albumin 1.1 L 09/27/19 09/27/19 16:22 18:30 WBC RBC Hgb Hct MCV MCH MCHC RDW Plt Count MPV Absolute Neuts (auto) Neutrophils % Lymphocytes % Monocytes % Eosinophils % Basophils % Nucleated RBC % Sodium 134 L Potassium 5.6 H Chloride 104 Carbon Dioxide 22 Anion Gap 8 BUN 61.9 H Creatinine 2.8 H Est GFR (CKD-EPI)AfAm 18.38 Est GFR (CKD-EPI)NonAf 15.86 POC Glucometer 110 Random Glucose 73 L Calcium 8.1 L Total Bilirubin AST ALT Alkaline Phosphatase Total Protein Albumin Active Medications Generic Name Dose Route Start Last Admin Trade Name Freq PRN Reason Stop Dose Admin Acetaminophen 650 mg 09/20/19 22:25 09/25/19 11:51 Tylenol - PO 650 mg Q6H PRN Administration FEVER Albuterol/Ipratropium 1 amp 09/20/19 12:15 09/26/19 03:30 Duoneb - NEB 1 amp Q6H PRN Administration SHORTNESS OF BREATH Allopurinol 300 mg 09/21/19 10:00 09/27/19 09:56 Zyloprim - PO 300 mg DAILY [facility] Administration Aspirin 81 mg 09/25/19 10:00 09/27/19 09:57 Ecotrin - PO 81 mg DAILY [facility] Administration Atorvastatin Calcium 40 mg 09/20/19 22:00 09/26/19 21:00 Lipitor - PO 40 mg HS [facility] Administration Escitalopram Oxalate 10 mg 09/21/19 10:00 09/27/19 09:57 Lexapro - PO 10 mg DAILY [facility] Administration Furosemide 40 mg 09/21/19 10:00 09/27/19 10:14 Lasix Injection - IVPUSH Not Given DAILY [facility] Meropenem 1 gm/ Dextrose 100 mls @ 200 mls/hr 09/21/19 18:30 09/27/19 09:57 IVPB 200 mls/hr BID [facility] Administration Levothyroxine Sodium 75 mcg 09/21/19 07:00 09/27/19 06:35 Synthroid - PO 75 mcg DAILY@0700 [facility] Administration Pantoprazole Sodium 40 mg 09/21/19 10:00 09/27/19 09:57 Protonix - PO 40 mg DAILY [facility] Administration Sodium Zirconium Cyclosilicate 10 gm 09/27/19 14:00 09/27/19 17:07 Lokelma PO 10 gm DAILY [facility] Administration Valacyclovir HCl 500 mg 09/21/19 10:00 09/27/19 09:56 Valtrex - PO 500 mg DAILY [facility] Administration ASSESSMENT/PLAN: #Neuro - AOx3 #Respiratory - CXR: Progressive congestive changes with pleural fluid and possible left base atelectasis - Duonebs - Lasix 40mg IV OD #CVS - EKG 09/27: LVH with QRS widening - Hypotensive at 80s/40s despite multiple - Continue Aspirin 81mg - Continue Atorvastatin 40mg #Renal - BUN/Cr 61.9/2.8, Gfr 18.38 - ATN due to hypoperfusion #Heme/Onc - Multiple Myeloma: Continue Lokelma, Allopurinol #ID - Urine Cx: Strep Agalactiae - Meropenem - Valtrex #Endo - Hx of hypothyroidism: Continue levothyroxine #FEN - Na controlled diet #Prophylaxis - Protonix #Dispo - Patient requires central line placement and pressor support for hypotension - We will continue to follow the patient. Thank you for this consultative opportunity. Visit type - Emergency Visit Emergency Visit: Yes ED Registration Date: 09/20/19 Care time: The patient presented to the Emergency Department on the above date and was hospitalized for further evaluation of their emergent condition. - New Patient This patient is new to me today: Yes Date on this admission: 10/12/19 - Critical Care Critical Care patient: Yes Total Critical Care Time (in minutes): 39 Critical Care Statement: The care of this patient involved high complexity decision making to prevent further life threatening deterioration of the patient 's condition and/or to evaluate & treat vital organ system(s) failure or risk of failure. ATTENDING PHYSICIAN STATEMENT I saw and evaluated the patient. I reviewed the resident's note and discussed the case with the resident. I agree with the resident's findings and plan as documented. SUBJECTIVE: OBJECTIVE: ASSESSMENT AND PLAN:
[2019-09-27] MEDS: ALBUTEROL SO4 2.5/IPRATROPIUM 0.5 INH SOL 3 ML VIAL.NEB. NEB PRN (21:39)
--- NOTE | 2019-09-27 22:14 | PN ---
Progress Note, Physician - Current Medication List Current Medications: Active Medications Acetaminophen (Tylenol -) 650 mg PO Q6H PRN PRN Reason: FEVER Last Admin: 09/25/19 11:51 Dose: 650 mg Albuterol/Ipratropium (Duoneb -) 1 amp NEB Q6H PRN PRN Reason: SHORTNESS OF BREATH Last Admin: 09/27/19 21:39 Dose: 1 amp Allopurinol (Zyloprim -) 300 mg PO DAILY [facility] Last Admin: 09/27/19 09:56 Dose: 300 mg Aspirin (Ecotrin -) 81 mg PO DAILY [facility] Last Admin: 09/27/19 09:57 Dose: 81 mg Atorvastatin Calcium (Lipitor -) 40 mg PO HS [facility] Last Admin: 09/26/19 21:00 Dose: 40 mg Escitalopram Oxalate (Lexapro -) 10 mg PO DAILY [facility] Last Admin: 09/27/19 09:57 Dose: 10 mg Furosemide (Lasix Injection -) 40 mg IVPUSH DAILY [facility] Last Admin: 09/27/19 10:14 Dose: Not Given Meropenem 1 gm/ Dextrose 100 mls @ 200 mls/hr IVPB BID [facility] Last Admin: 09/27/19 22:06 Dose: 200 mls/hr Norepinephrine Bitartrate 8, (000 mcg/ Dextrose) 500 mls @ 18.75 mls/hr IV TITR [facility]; Protocol Levothyroxine Sodium (Synthroid -) 75 mcg PO DAILY@0700 [facility] Last Admin: 09/27/19 06:35 Dose: 75 mcg Pantoprazole Sodium (Protonix -) 40 mg PO DAILY [facility] Last Admin: 09/27/19 09:57 Dose: 40 mg Sodium Zirconium Cyclosilicate (Lokelma) 10 gm PO DAILY [facility] Last Admin: 09/27/19 17:07 Dose: 10 gm Valacyclovir HCl (Valtrex -) 500 mg PO DAILY [facility] Last Admin: 09/27/19 09:56 Dose: 500 mg - Objective Vital Signs: Vital Signs Temperature 97.4 F L 09/27/19 15:00 Pulse Rate 72 09/27/19 17:05 Respiratory Rate 18 09/27/19 17:05 Blood Pressure 85/43 L 09/27/19 17:05 O2 Sat by Pulse Oximetry (%) 96 09/27/19 09:00 Labs: CBC, BMP 09/27/19 06:12 11/26/19 18:30 INR, PTT INR 1.16 (0.83-1.09) H 09/20/19 04:16 Problem List - Problems (1) Acute on chronic systolic CHF (congestive heart failure) Code(s): I50.23 - ACUTE ON CHRONIC SYSTOLIC (CONGESTIVE) HEART FAILURE (2) Elevated troponin Code(s): R74.8 - ABNORMAL LEVELS OF OTHER SERUM ENZYMES (3) UTI (urinary tract infection) Code(s): N39.0 - URINARY TRACT INFECTION, SITE NOT SPECIFIED (4) HTN (hypertension) Code(s): I10 - ESSENTIAL (PRIMARY) HYPERTENSION Qualifiers: Hypertension type: unspecified Qualified Code(s): I10 - Essential (primary ) hypertension (5) Multiple myeloma Code(s): C90.00 - MULTIPLE MYELOMA NOT HAVING ACHIEVED REMISSION Qualifiers: Multiple myeloma remission status: not in remission Qualified Code(s): C90.00 - Multiple myeloma not having achieved remission (6) Diarrhea Code(s): R19.7 - DIARRHEA, UNSPECIFIED Qualifiers: Diarrhea type: unspecified type Qualified Code(s): R19.7 - Diarrhea, unspecified (7) HLD (hyperlipidemia) Code(s): E78.5 - HYPERLIPIDEMIA, UNSPECIFIED Qualifiers: Hyperlipidemia type: unspecified Qualified Code(s): E78.5 - Hyperlipidemia , unspecified (8) Hypothyroidism Code(s): E03.9 - HYPOTHYROIDISM, UNSPECIFIED Qualifiers: Hypothyroidism type: acquired Qualified Code(s): E03.9 - Hypothyroidism, unspecified (9) CAD (coronary artery disease) Code(s): I25.10 - ATHSCL HEART DISEASE OF [place] CORONARY ARTERY W/O ANG PCTRS Qualifiers: (10) Depression Code(s): F32.9 - MAJOR DEPRESSIVE DISORDER, SINGLE EPISODE, UNSPECIFIED (11) History of heart artery stent Code(s): Z95.5 - PRESENCE OF CORONARY ANGIOPLASTY IMPLANT AND GRAFT
--- NOTE | 2019-09-28 02:05 | PROC ---
Central Line Insertion Indication: Vasopressor Risks and Benefits Explained: Yes Consent on Chart: Yes Central Line: Triple Lumen Catheter Anesthesia: 2% Lidocaine Sterile Technique: Yes Ultrasound Guided Assistance: Yes Position: Right Internal Jugular Post Insertion: Yes: Bilateral Breath Sounds, Bilateral Chest Expansion, Chest X-Ray Ordered Sterile Dressing Applied: Yes
[2019-09-28] MEDS: NOREPINEPHRINE BITARTRATE 8,000 MCG in DEXTROSE 5%-WATER - 492 ML IV SCH ×2 (06:00→21:12)
[2019-09-28] MEDS: LEVOTHYROXINE NA 75 MCG TABLET (FP) PO SCH (06:28)
[2019-09-28 06:56] LABS: BASO % 0.8 % (0-2.0); EOS % 0.7 % (0-4.5); HEMATOCRIT 23.7 % (32.4-45.2); HEMOGLOBIN 7.9 GM/dL (10.7-15.3); LYMPH % 16.5 % (8-40); MCH 32.8 pg (25.7-33.7); MCHC 33.3 g/dl (32.0-36.0); MEAN CELL VOLUME 98.6 fl (80-96); MEAN PLT VOLUME 8.5 fl (7.5-11.1); MONO % 6.4 % (3.8-10.2); NEUT % 75.6 % (42.8-82.8); PLATELET COUNT 178 K/MM3 (134-434); RDW 16.2 % (11.6-15.6); WHITE BLOOD COUNT 3.5 K/mm3 (4.0-10.0)
[2019-09-28 07:35] LABS: BILIRUBIN,TOTAL 0.2 mg/dL (0.2-1); BLOOD UREA NITROGEN 65.3 mg/dL (7-18); CREATININE 2.7 mg/dL (0.55-1.3); MAGNESIUM 2.3 mg/dL (1.8-2.4); PHOSPHOROUS 5.6 mg/dL (2.5-4.9); POTASSIUM 5.4 mmol/L (3.5-5.1); TOT PROT 5.9 g/dl (6.4-8.2)
[2019-09-28] MEDS ORDERED: MEROPENEM 1 GM VIAL (RESTRICTED TO ID) IVPB ONE ×2 (09:07→20:51)
[2019-09-28] MEDS ORDERED: DEXTROSE 5%-WATER 100 ML IVPB ONE ×2 (09:07→20:51)
[2019-09-28] MEDS ORDERED: PT OWN MED DRAWER 7, Y5N ONE (09:08)
[2019-09-28] MEDS: ESCITALOPRAM OXALATE 10 MG TABLET (FP) PO SCH (09:12)
[2019-09-28] MEDS: PANTOPRAZOLE 40 MG TABLET (FP) PO SCH (09:12)
[2019-09-28] MEDS: ALLOPURINOL 300 MG TABLET (FP) PO SCH (09:12)
[2019-09-28] MEDS: valACYclovir HCL 500 MG TABLET (FP) PO SCH (09:12)
[2019-09-28] MEDS: FUROSEMIDE 40 MG/4 ML INJECTABLE VIAL IVPUSH SCH (09:12)
[2019-09-28] MEDS: ASPIRIN COATED 81 MG TABLET.EC PO SCH (09:12)
[2019-09-28] MEDS: SODIUM ZIRCONIUM CYCLOSILICATE (LOKELMA) 5 GM PACKET PO SCH (09:12)
[2019-09-28] MEDS: MEROPENEM 1 GM in DEXTROSE 5%-WATER 100 ML IVPB SCH ×2 (09:13→21:12)
--- NOTE | 2019-09-28 10:48 | EKG ---
Test Reason : Blood Pressure : / mmHG Vent. Rate : 089 BPM Atrial Rate : 089 BPM P-R Int : 158 ms QRS Dur : 122 ms QT Int : 340 ms P-R-T Axes : 042 -24 147 degrees QTc Int : 413 ms NORMAL SINUS RHYTHM NON-SPECIFIC INTRA-VENTRICULAR CONDUCTION DELAY ABNORMAL ECG WHEN COMPARED WITH ECG OF 27-SEP-2019 09:17, NO SIGNIFICANT CHANGE WAS FOUND Confirmed by CINDY PALMER, MELISSA ([id number]) on 09/28/2019 10:48:17 AM Referred By: FELICE KRAFT Confirmed By:MELISSA WHITE MD
--- NOTE | 2019-09-28 11:33 | PN ---
Progress Note, Physician History of Present Illness: 74 year old black female with PMH HTN, HLD, CAD s/p coronary artery stenting, GERD, multiple myeloma (chemo; radiation directed at abdomen), ? "mild" systolic CHF, on Lasix, rectal hemorrhoids, now presented to ED for diarrhea x2 days associated with generalized weakness, ROGERS. Pt reported she has had loose, watery diarrhea x2 days, and prior to that he had rectal bleeding x2 days (on toilet paper and mixed in stool) that self resolved. She reported she only noticed the bleeding because it was on the toilet paper, as she did not have abdominal or rectal pain. Pt reported generalized weakness and ROGERS, which prompted her to come to the ED. Pt denied nausea, vomiting, fever, abdominal pain, chest pain, increased LE swelling. She reported she believed her lower extremity swelling is actually improving. She also reported noticing a new "rash " to her right hip since last week. - Current Medication List Current Medications: Active Medications Acetaminophen (Tylenol -) 650 mg PO Q6H PRN PRN Reason: FEVER Last Admin: 09/25/19 11:51 Dose: 650 mg Albumin Human (Plasbumin-5 -) 12.5 gm IVPB ONCE ONE Stop: 09/28/19 11:24 Albuterol/Ipratropium (Duoneb -) 1 amp NEB Q6H PRN PRN Reason: SHORTNESS OF BREATH Last Admin: 09/27/19 21:39 Dose: 1 amp Allopurinol (Zyloprim -) 300 mg PO DAILY [facility] Last Admin: 09/28/19 09:12 Dose: 300 mg Aspirin (Ecotrin -) 81 mg PO DAILY [facility] Last Admin: 09/28/19 09:12 Dose: 81 mg Atorvastatin Calcium (Lipitor -) 40 mg PO HS [facility] Last Admin: 09/26/19 21:00 Dose: 40 mg Escitalopram Oxalate (Lexapro -) 10 mg PO DAILY [facility] Last Admin: 09/28/19 09:12 Dose: 10 mg Furosemide (Lasix Injection -) 40 mg IVPUSH DAILY [facility] Last Admin: 09/28/19 09:12 Dose: 40 mg Meropenem 1 gm/ Dextrose 100 mls @ 200 mls/hr IVPB BID [facility] Last Admin: 09/28/19 09:13 Dose: 200 mls/hr Norepinephrine Bitartrate 8, (000 mcg/ Dextrose) 500 mls @ 18.75 mls/hr IV TITR [facility]; Protocol Last Titration: 09/28/19 08:30 Dose: 3 mcg/min, 11.25 mls/hr Levothyroxine Sodium (Synthroid -) 75 mcg PO DAILY@0700 [facility] Last Admin: 09/28/19 06:28 Dose: 75 mcg Pantoprazole Sodium (Protonix -) 40 mg PO DAILY [facility] Last Admin: 09/28/19 09:12 Dose: 40 mg Sodium Zirconium Cyclosilicate (Lokelma) 10 gm PO DAILY [facility] Last Admin: 09/28/19 09:12 Dose: 10 gm Valacyclovir HCl (Valtrex -) 500 mg PO DAILY [facility] Last Admin: 09/28/19 09:12 Dose: 500 mg - Objective Vital Signs: Vital Signs Temperature 98 F 09/28/19 10:25 Pulse Rate 90 09/28/19 10:25 Respiratory Rate 22 H 09/28/19 10:25 Blood Pressure 101/54 L 09/28/19 10:25 O2 Sat by Pulse Oximetry (%) 95 09/28/19 08:21 Eyes: Yes: WNL, Conjunctiva Clear, EOM Intact HENT: Yes: WNL, Atraumatic, Normocephalic Neck: Yes: WNL, Supple, Trachea Midline Cardiovascular: Yes: WNL, Regular Rate and Rhythm Respiratory: Yes: Diminished Gastrointestinal: Yes: WNL, Normal Bowel Sounds Genitourinary: Yes: WNL Musculoskeletal: Yes: WNL Extremities: Yes: WNL Edema: Yes Integumentary: Yes: WNL Neurological: Yes: WNL, Alert, Oriented ...Motor Strength: WNL Psychiatric: Yes: WNL Labs: CBC, BMP 09/28/19 05:30 09/28/19 05:30 INR, PTT INR 1.16 (0.83-1.09) H 09/20/19 04:16 Assessment/Plan - Problems Events last 24 hrs noted transfer to ICU for pressors support on Norepi and lasix (1) Hypoxia Code(s): R09.02 - HYPOXEMIA (2) Weakness Code(s): R53.1 - WEAKNESS (3) ASHD (arteriosclerotic heart disease) Code(s): I25.10 - ATHSCL HEART DISEASE OF [place] CORONARY ARTERY W/O ANG PCTRS (4) Acute on chronic systolic CHF (congestive heart failure) Assessment/Plan: off losartan to raising K and bun/cr and hypotension F/u BUN/Cr, electrolytes, daily weight, Is and Os. ECHO: severely reduced LVEF; small pericardial effusion which is not hemodynamically significant; pleural effuson. Plan to re start carvedilol or metoprolol if BP and HR allow. Code(s): I50.23 - ACUTE ON CHRONIC SYSTOLIC (CONGESTIVE) HEART FAILURE (5) Adult onset hypothyroidism Assessment/Plan: elevated TSH; f/u Free T4. Code(s): E03.8 - OTHER SPECIFIED HYPOTHYROIDISM (6) Anxiety Code(s): F41.9 - ANXIETY DISORDER, UNSPECIFIED (7) Elevated troponin Code(s): R74.8 - ABNORMAL LEVELS OF OTHER SERUM ENZYMES (8) HLD (hyperlipidemia) Assessment/Plan: On statin. LDL elevated in March; f/u lipid profile. Code(s): E78.5 - HYPERLIPIDEMIA, UNSPECIFIED Qualifiers: Hyperlipidemia type: unspecified Qualified Code(s): E78.5 - Hyperlipidemia , unspecified (9) HTN (hypertension) Assessment/Plan: off losartan and furosemide. Would start beta savana if remains stable, even if BP is relatively low-normal , given severity of systolic dysfunction. Code(s): I10 - ESSENTIAL (PRIMARY) HYPERTENSION Qualifiers: Hypertension type: unspecified Qualified Code(s): I10 - Essential (primary ) hypertension (10) History of heart artery stent Code(s): Z95.5 - PRESENCE OF CORONARY ANGIOPLASTY IMPLANT AND GRAFT (11) Multiple myeloma Code(s): C90.00 - MULTIPLE MYELOMA NOT HAVING ACHIEVED REMISSION Qualifiers: Multiple myeloma remission status: not in remission Qualified Code(s): C90.00 - Multiple myeloma not having achieved remission (12) Pancytopenia Code(s): D61.818 - OTHER PANCYTOPENIA Amyloid Prognosis is guarded cc time spent 37 min
--- NOTE | 2019-09-28 11:34 | PN ---
Progress Note, Physician History of Present Illness: Pt seen and examined at bedside. She is now in the ICU. She is on pressors for hypotension. She complains of edema and shortness of breath. - Current Medication List Current Medications: Active Medications Acetaminophen (Tylenol -) 650 mg PO Q6H PRN PRN Reason: FEVER Last Admin: 09/25/19 11:51 Dose: 650 mg Albumin Human (Plasbumin-5 -) 12.5 gm IVPB ONCE ONE Stop: 09/28/19 11:24 Albuterol/Ipratropium (Duoneb -) 1 amp NEB Q6H PRN PRN Reason: SHORTNESS OF BREATH Last Admin: 09/27/19 21:39 Dose: 1 amp Allopurinol (Zyloprim -) 300 mg PO DAILY [facility] Last Admin: 09/28/19 09:12 Dose: 300 mg Aspirin (Ecotrin -) 81 mg PO DAILY [facility] Last Admin: 09/28/19 09:12 Dose: 81 mg Atorvastatin Calcium (Lipitor -) 40 mg PO HS [facility] Last Admin: 09/26/19 21:00 Dose: 40 mg Escitalopram Oxalate (Lexapro -) 10 mg PO DAILY [facility] Last Admin: 09/28/19 09:12 Dose: 10 mg Furosemide (Lasix Injection -) 40 mg IVPUSH DAILY [facility] Last Admin: 09/28/19 09:12 Dose: 40 mg Furosemide (Lasix Injection -) 40 mg IVPUSH ONCE ONE Stop: 09/28/19 11:29 Meropenem 1 gm/ Dextrose 100 mls @ 200 mls/hr IVPB BID [facility] Last Admin: 09/28/19 09:13 Dose: 200 mls/hr Norepinephrine Bitartrate 8, (000 mcg/ Dextrose) 500 mls @ 18.75 mls/hr IV TITR [facility]; Protocol Last Titration: 09/28/19 08:30 Dose: 3 mcg/min, 11.25 mls/hr Levothyroxine Sodium (Synthroid -) 75 mcg PO DAILY@0700 [facility] Last Admin: 09/28/19 06:28 Dose: 75 mcg Pantoprazole Sodium (Protonix -) 40 mg PO DAILY [facility] Last Admin: 09/28/19 09:12 Dose: 40 mg Sodium Zirconium Cyclosilicate (Lokelma) 10 gm PO DAILY [facility] Last Admin: 09/28/19 09:12 Dose: 10 gm Valacyclovir HCl (Valtrex -) 500 mg PO DAILY [facility] Last Admin: 09/28/19 09:12 Dose: 500 mg - Objective Vital Signs: Vital Signs Temperature 98 F 09/28/19 10:25 Pulse Rate 90 09/28/19 10:25 Respiratory Rate 22 H 09/28/19 10:25 Blood Pressure 101/54 L 09/28/19 10:25 O2 Sat by Pulse Oximetry (%) 95 09/28/19 08:21 Constitutional: Yes: Calm Eyes: Yes: Conjunctiva Clear HENT: Yes: Atraumatic Neck: Yes: Supple Cardiovascular: Yes: S1, S2 Respiratory: Yes: On Nasal O2, Rhonchi Gastrointestinal: Yes: Soft Genitourinary: Yes: Incontinence Musculoskeletal: Yes: Muscle Weakness Edema: Yes Edema: LLE: 2+, RLE: 2+ Neurological: Yes: Oriented Psychiatric: Yes: Oriented Labs: CBC, BMP 09/28/19 05:30 09/28/19 05:30 INR, PTT INR 1.16 (0.83-1.09) H 09/20/19 04:16 - ....Imaging Chest X-ray: Report Reviewed Assessment/Plan Current Medications Generic Name Dose Route Start Last Admin Trade Name Freq PRN Reason Stop Dose Admin Acetaminophen 650 mg 09/20/19 22:25 09/25/19 11:51 Tylenol - PO 650 mg Q6H PRN Administration FEVER Albumin Human 12.5 gm 09/28/19 11:23 Plasbumin-5 - IVPB 09/28/19 11:24 ONCE ONE Albuterol/Ipratropium 1 amp 09/20/19 12:15 09/27/19 21:39 Duoneb - NEB 1 amp Q6H PRN Administration SHORTNESS OF BREATH Allopurinol 300 mg 09/21/19 10:00 09/28/19 09:12 Zyloprim - PO 300 mg DAILY [facility] Administration Aspirin 81 mg 09/25/19 10:00 09/28/19 09:12 Ecotrin - PO 81 mg DAILY [facility] Administration Atorvastatin Calcium 40 mg 09/20/19 22:00 09/26/19 21:00 Lipitor - PO 40 mg HS [facility] Administration Escitalopram Oxalate 10 mg 09/21/19 10:00 09/28/19 09:12 Lexapro - PO 10 mg DAILY [facility] Administration Furosemide 40 mg 09/21/19 10:00 09/28/19 09:12 Lasix Injection - IVPUSH 40 mg DAILY [facility] Administration Furosemide 40 mg 09/28/19 11:28 Lasix Injection - IVPUSH 09/28/19 11:29 ONCE ONE Meropenem 1 gm/ Dextrose 100 mls @ 200 mls/hr 09/21/19 18:30 09/28/19 09:13 IVPB 200 mls/hr BID [facility] Administration Norepinephrine Bitartrate 8, 500 mls @ 18.75 mls/hr 09/27/19 22:00 09/28/19 08:30 000 mcg/ Dextrose IV 3 mcg/min TITR [facility] 11.25 mls/hr Titration Protocol 5 MCG/MIN Levothyroxine Sodium 75 mcg 09/21/19 07:00 09/28/19 06:28 Synthroid - PO 75 mcg DAILY@0700 [facility] Administration Pantoprazole Sodium 40 mg 09/21/19 10:00 09/28/19 09:12 Protonix - PO 40 mg DAILY [facility] Administration Sodium Zirconium Cyclosilicate 10 gm 09/27/19 14:00 09/28/19 09:12 Lokelma PO 10 gm DAILY [facility] Administration Valacyclovir HCl 500 mg 09/21/19 10:00 09/28/19 09:12 Valtrex - PO 500 mg DAILY [facility] Administration Impression 1. proteinuria 2. multiple myeloma 3. amyloid 4. dizziness 5. hypotension 6. HLD 7. hypothyroidism 8. anemia 9. CKD 10. fluid overload 11. hypotension Plan - cont pressors to map 65 - agree with lasix - give albumin as well - discussed with ICU team - monitor renal function - potassium treated medically and improving - hold bp meds - cozaar stopped
[2019-09-28] MEDS ORDERED: FUROSEMIDE 40 MG/4 ML INJECTABLE VIAL IVPUSH ONE (11:45)
[2019-09-28] MEDS ORDERED: ALBUMIN HUMAN 5% 250 ML IV SOLUTION IVPB ONE (11:45)
--- NOTE | 2019-09-28 12:02 | PN ---
Teaching Attending Note Name of Resident: Fernando Moeller ATTENDING PHYSICIAN STATEMENT I saw and evaluated the patient. I reviewed the resident's note and discussed the case with the resident. I agree with the resident's findings and plan as documented. SUBJECTIVE: Pt seen and examined in the ICU. Transferred down for hypotension, renal failure. Now on levophed gtt. OBJECTIVE: Vital Signs Period Temp Pulse Resp BP Sys/Moss Pulse Ox Last 24 Hr 97.4 F-98.4 F 65-94 16-26 77-113/36-63 95-97 Intake & Output 09/25/19 09/26/19 09/27/19 09/28/19 23:59 23:59 23:59 23:59 Intake Total 431 450 1827 Output Total 400 500 0 Balance 710 40 670 0 Weight 59.421 kg 60.282 kg 57.72 kg 69.581 kg Gen: mildly tachypneic at rest Heart: RRR Lung: basilar rales Abd: soft, nontender Ext: + edema CBC, BMP 09/28/19 05:30 09/28/19 05:30 Active Medications Acetaminophen (Tylenol -) 650 mg PO Q6H PRN PRN Reason: FEVER Last Admin: 09/25/19 11:51 Dose: 650 mg Albuterol/Ipratropium (Duoneb -) 1 amp NEB Q6H PRN PRN Reason: SHORTNESS OF BREATH Last Admin: 09/27/19 21:39 Dose: 1 amp Allopurinol (Zyloprim -) 300 mg PO DAILY [facility] Last Admin: 09/28/19 09:12 Dose: 300 mg Aspirin (Ecotrin -) 81 mg PO DAILY [facility] Last Admin: 09/28/19 09:12 Dose: 81 mg Atorvastatin Calcium (Lipitor -) 40 mg PO HS [facility] Last Admin: 09/26/19 21:00 Dose: 40 mg Escitalopram Oxalate (Lexapro -) 10 mg PO DAILY [facility] Last Admin: 09/28/19 09:12 Dose: 10 mg Furosemide (Lasix Injection -) 40 mg IVPUSH DAILY [facility] Last Admin: 09/28/19 09:12 Dose: 40 mg Meropenem 1 gm/ Dextrose 100 mls @ 200 mls/hr IVPB BID [facility] Last Admin: 09/28/19 09:13 Dose: 200 mls/hr Norepinephrine Bitartrate 8, (000 mcg/ Dextrose) 500 mls @ 18.75 mls/hr IV TITR [facility]; Protocol Last Titration: 09/28/19 08:30 Dose: 3 mcg/min, 11.25 mls/hr Levothyroxine Sodium (Synthroid -) 75 mcg PO DAILY@0700 [facility] Last Admin: 09/28/19 06:28 Dose: 75 mcg Pantoprazole Sodium (Protonix -) 40 mg PO DAILY [facility] Last Admin: 09/28/19 09:12 Dose: 40 mg Sodium Zirconium Cyclosilicate (Lokelma) 10 gm PO DAILY [facility] Last Admin: 09/28/19 09:12 Dose: 10 gm Valacyclovir HCl (Valtrex -) 500 mg PO DAILY [facility] Last Admin: 09/28/19 09:12 Dose: 500 mg ASSESSMENT AND PLAN: Acute on Chronic Systolic Heart Failure Cardiogenic Shock Acute on Chronic Renal Failure CAD Pneumonia Asthma Multiple Myeloma HTN Hyperlipidemia Hypothyroidism Anemia - continue lasix - taper levophed gtt - d/w cardiology inotropic support - monitor urine output, creatinine - daily weights - antibiotics per ID - O2 to keep SpO2 >90% - inhaled bronchodilators as needed - DVT prophylaxis - continue ICU monitoring critical care time spent in reviewing chart, evaluating patient and formulating plan 35 min
--- NOTE | 2019-09-28 12:03 | PN ---
Physical Exam: SUBJECTIVE: Patient seen and examined on AM rounds. Overnight, central line placed, patient now on Norepi 5 with MAPs in the 60-70s. Complains of nasal congestion and "heavy legs." Denies CP/n/v/d/c. Endorses some improvement of her SOB. OBJECTIVE: Vital Signs Period Temp Pulse Resp BP Sys/Moss Pulse Ox Last 24 Hr 97.4 F-98.4 F 65-94 16-26 77-113/36-63 95-97 GENERAL: AOx3, laying comfortably in bed EYES: PERRLA, EOMI HEENT: Dry mucus membranes, normal morphologies LUNGS: Diminished breath sounds b/l HEART: RRR, nl s1s2, no murmurs appreciated ABDOMEN: Soft, non-tender, non-distended EXTREMITIES: 2+ pitting edema B/L up to mid-benitez NEUROLOGICAL: Motor 4/5, sensations intact, CN grossly intact SKIN: Warm, dry, well perfused Laboratory Results - last 24 hr 09/27/19 09/27/19 09/28/19 16:22 18:30 05:30 WBC 3.5 L RBC 2.40 L Hgb 7.9 L Hct 23.7 L MCV 98.6 H MCH 32.8 MCHC 33.3 RDW 16.2 H Plt Count 178 MPV 8.5 Absolute Neuts (auto) 2.7 Neutrophils % 75.6 Lymphocytes % 16.5 Monocytes % 6.4 Eosinophils % 0.7 D Basophils % 0.8 Nucleated RBC % 0 Sodium 134 L Potassium 5.6 H Chloride 104 Carbon Dioxide 22 Anion Gap 8 BUN 61.9 H Creatinine 2.8 H Est GFR (CKD-EPI)AfAm 18.38 Est GFR (CKD-EPI)NonAf 15.86 POC Glucometer 110 Random Glucose 73 L Calcium 8.1 L Phosphorus Magnesium Total Bilirubin AST ALT Alkaline Phosphatase Creatine Kinase Troponin I Total Protein Albumin 09/28/19 05:30 WBC RBC Hgb Hct MCV MCH MCHC RDW Plt Count MPV Absolute Neuts (auto) Neutrophils % Lymphocytes % Monocytes % Eosinophils % Basophils % Nucleated RBC % Sodium 134 L Potassium 5.4 H Chloride 104 Carbon Dioxide 22 Anion Gap 8 BUN 65.3 H Creatinine 2.7 H Est GFR (CKD-EPI)AfAm 19.21 Est GFR (CKD-EPI)NonAf 16.57 POC Glucometer Random Glucose 69 L Calcium 8.0 L Phosphorus 5.6 H Magnesium 2.3 Total Bilirubin 0.2 AST 15 ALT 11 L Alkaline Phosphatase 60 Creatine Kinase 50 Troponin I 0.05 Total Protein 5.9 L Albumin 1.0 L Active Medications Generic Name Dose Route Start Last Admin Trade Name Freq PRN Reason Stop Dose Admin Acetaminophen 650 mg 09/20/19 22:25 09/25/19 11:51 Tylenol - PO 650 mg Q6H PRN Administration FEVER Albuterol/Ipratropium 1 amp 09/20/19 12:15 09/27/19 21:39 Duoneb - NEB 1 amp Q6H PRN Administration SHORTNESS OF BREATH Allopurinol 300 mg 09/21/19 10:00 09/28/19 09:12 Zyloprim - PO 300 mg DAILY [facility] Administration Aspirin 81 mg 09/25/19 10:00 09/28/19 09:12 Ecotrin - PO 81 mg DAILY [facility] Administration Atorvastatin Calcium 40 mg 09/20/19 22:00 09/26/19 21:00 Lipitor - PO 40 mg HS [facility] Administration Escitalopram Oxalate 10 mg 09/21/19 10:00 09/28/19 09:12 Lexapro - PO 10 mg DAILY [facility] Administration Furosemide 40 mg 09/21/19 10:00 09/28/19 09:12 Lasix Injection - IVPUSH 40 mg DAILY [facility] Administration Meropenem 1 gm/ Dextrose 100 mls @ 200 mls/hr 09/21/19 18:30 09/28/19 09:13 IVPB 200 mls/hr BID [facility] Administration Norepinephrine Bitartrate 8, 500 mls @ 18.75 mls/hr 09/27/19 22:00 09/28/19 08:30 000 mcg/ Dextrose IV 3 mcg/min TITR [facility] 11.25 mls/hr Titration Protocol 5 MCG/MIN Levothyroxine Sodium 75 mcg 09/21/19 07:00 09/28/19 06:28 Synthroid - PO 75 mcg DAILY@0700 [facility] Administration Pantoprazole Sodium 40 mg 09/21/19 10:00 09/28/19 09:12 Protonix - PO 40 mg DAILY [facility] Administration Sodium Zirconium Cyclosilicate 10 gm 09/27/19 14:00 09/28/19 09:12 Lokelma PO 10 gm DAILY [facility] Administration Valacyclovir HCl 500 mg 09/21/19 10:00 09/28/19 09:12 Valtrex - PO 500 mg DAILY [facility] Administration ASSESSMENT/PLAN: 73yo F PMH multiple myeloma (currently on treatment), amyloidosis, chronic anemia, hypertension, hyperlipidemia, hypothyroidism, GERD, admitted for UGIB, renal failure, volume overload, transferred to the ICU for hypotension refractory to IVF boluses. Now with RIJ, levophed 5, adequate MAPsm continued to balance diuresis and pressure support. #Neuro - AOx3 #Respiratory - CXR: Progressive congestive changes with pleural fluid and possible left base atelectasis - Duonebs as needed - Continue Lasix 40mg IV OD, with albumin (1.0 today) - O2 to keep SpO2 >90% #CVS - EKG 09/27: LVH with QRS widening - Hypotensive at 80s/40s despite multiple IVF boluses - Central line placed 09/27 overnight, pt on levophed ggt, taper as tolerated - Continue Aspirin 81mg - Continue Atorvastatin 40mg - Inotropic support - Repeat troponin 0.05 (0.2 > 0.15 prior) - Appreciated cardiology recs #Renal - BUN/Cr: 61.9/2.8 -> 65.3/2.7 - ATN due to hypoperfusion - Monitor I&Os, trend Cr - Daily weights - Appreciate nephrology recs #Heme/Onc - Multiple Myeloma: Continue Lokelma, Allopurinol #ID - Urine Cx: Strep Agalactiae - Meropenem - Valtrex - Monitor for fever / leukocytosis - Appreciate ID recs #Endo - Hx of hypothyroidism: Continue levothyroxine #FEN - Na controlled diet #Prophylaxis - Protonix - SCDs #Dispo - Continued ICU monitoring - We will continue to follow the patient. - Thank you for this consultative opportunity. Visit type - Emergency Visit Emergency Visit: Yes ED Registration Date: 09/20/19 Care time: The patient presented to the Emergency Department on the above date and was hospitalized for further evaluation of their emergent condition. - New Patient This patient is new to me today: Yes Date on this admission: 09/28/19 - Critical Care Critical Care patient: Yes Total Critical Care Time (in minutes): 36 Critical Care Statement: The care of this patient involved high complexity decision making to prevent further life threatening deterioration of the patient 's condition and/or to evaluate & treat vital organ system(s) failure or risk of failure. ATTENDING PHYSICIAN STATEMENT I saw and evaluated the patient. I reviewed the resident's note and discussed the case with the resident. I agree with the resident's findings and plan as documented. SUBJECTIVE: OBJECTIVE: ASSESSMENT AND PLAN:
--- NOTE | 2019-09-28 13:13 | PN ---
Progress Note, Physician History of Present Illness: events noted patient became hypotensive txed to icu on levaphed now stable though says she feels better - Current Medication List Current Medications: Active Medications Acetaminophen (Tylenol -) 650 mg PO Q6H PRN PRN Reason: FEVER Last Admin: 09/25/19 11:51 Dose: 650 mg Albuterol/Ipratropium (Duoneb -) 1 amp NEB Q6H PRN PRN Reason: SHORTNESS OF BREATH Last Admin: 09/27/19 21:39 Dose: 1 amp Allopurinol (Zyloprim -) [address] [facility] Last Admin: 09/28/19 09:12 Dose: 300 mg Aspirin (Ecotrin -) [address] [facility] Last Admin: 09/28/19 09:12 Dose: 81 mg Atorvastatin Calcium (Lipitor -) [address] [facility] Last Admin: 09/26/19 21:00 Dose: 40 mg Escitalopram Oxalate (Lexapro -) [address] [facility] Last Admin: 09/28/19 09:12 Dose: 10 mg Furosemide (Lasix Injection -) [address] [facility] Last Admin: 09/28/19 09:12 Dose: 40 mg Meropenem 1 gm/ Dextrose 100 mls @ 200 mls/hr IVPB BID [facility] Last Admin: 09/28/19 09:13 Dose: 200 mls/hr Norepinephrine Bitartrate 8, (000 mcg/ Dextrose) 500 mls @ 18.75 mls/hr IV TITR [facility]; Protocol Last Titration: 09/28/19 12:02 Dose: 4 mcg/min, 15 mls/hr Levothyroxine Sodium (Synthroid -) 75 mcg PO DAILY@0700 [facility] Last Admin: 09/28/19 06:28 Dose: 75 mcg Pantoprazole Sodium (Protonix -) [address] [facility] Last Admin: 09/28/19 09:12 Dose: 40 mg Sodium Zirconium Cyclosilicate (Lokelma) 10 gm PO DAILY [facility] Last Admin: 09/28/19 09:12 Dose: 10 gm Valacyclovir HCl (Valtrex -) [address] [facility] Last Admin: 09/28/19 09:12 Dose: 500 mg - Objective Vital Signs: Vital Signs Temperature 98 F 09/28/19 10:00 Pulse Rate 83 09/28/19 12:02 Respiratory Rate 19 09/28/19 12:00 Blood Pressure 95/54 L 09/28/19 12:02 O2 Sat by Pulse Oximetry (%) 95 09/28/19 08:21 Constitutional: Yes: No Distress, Calm HENT: Yes: Atraumatic Neck: Yes: Supple, Trachea Midline Cardiovascular: Yes: Regular Rate and Rhythm, Other (on pressors) Respiratory: Yes: Regular, CTA Bilaterally, On Nasal O2 Gastrointestinal: Yes: Normal Bowel Sounds, Soft Musculoskeletal: Yes: WNL Extremities: Yes: WNL Neurological: Yes: Alert, Oriented Psychiatric: Yes: Alert, Oriented Labs: CBC, BMP 09/28/19 05:30 09/28/19 05:30 INR, PTT INR 1.16 (0.83-1.09) H 09/20/19 04:16 - ....Imaging Chest X-ray: Report Reviewed, Image Reviewed Assessment/Plan Problem List - Problems (1) Anasarca Code(s): R60.1 - GENERALIZED EDEMA (2) Fluid overload Code(s): E87.70 - FLUID OVERLOAD, UNSPECIFIED (3) Hypoxia Code(s): R09.02 - HYPOXEMIA (4) Weakness Code(s): R53.1 - WEAKNESS (5) ASHD (arteriosclerotic heart disease) Code(s): I25.10 - ATHSCL HEART DISEASE OF [place] CORONARY ARTERY W/O ANG PCTRS (6) Acute exacerbation of CHF (congestive heart failure) Code(s): I50.9 - HEART FAILURE, UNSPECIFIED (7) Acute on chronic systolic CHF (congestive heart failure) Code(s): I50.23 - ACUTE ON CHRONIC SYSTOLIC (CONGESTIVE) HEART FAILURE (8) Adult onset hypothyroidism Code(s): E03.8 - OTHER SPECIFIED HYPOTHYROIDISM (9) Anemia Code(s): D64.9 - ANEMIA, UNSPECIFIED (10) CKD (chronic kidney disease) Code(s): N18.9 - CHRONIC KIDNEY DISEASE, UNSPECIFIED (11) Elevated troponin Code(s): R74.8 - ABNORMAL LEVELS OF OTHER SERUM ENZYMES (12) HLD (hyperlipidemia) Code(s): E78.5 - HYPERLIPIDEMIA, UNSPECIFIED Qualifiers: Hyperlipidemia type: unspecified Qualified Code(s): E78.5 - Hyperlipidemia , unspecified (13) HTN (hypertension) Code(s): I10 - ESSENTIAL (PRIMARY) HYPERTENSION Qualifiers: Hypertension type: unspecified Qualified Code(s): I10 - Essential (primary ) hypertension (14) History of heart artery stent Code(s): Z95.5 - PRESENCE OF CORONARY ANGIOPLASTY IMPLANT AND GRAFT (15) Multiple myeloma Code(s): C90.00 - MULTIPLE MYELOMA NOT HAVING ACHIEVED REMISSION Qualifiers: Multiple myeloma remission status: not in remission Qualified Code(s): C90.00 - Multiple myeloma not having achieved remission uti hypotension Assessment/Plan continue abx monitor for fever pressors close monitoring rest as per icu cc 40 min
[2019-09-28] MEDS: ATORVASTATIN CA 40 MG TABLET (FP) PO SCH (21:12)
[2019-09-28] MEDS: ACETAMINOPHEN 325 MG TABLET (FP) PO PRN (21:23)
--- NOTE | 2019-09-28 22:24 | PN ---
Progress Note, Physician - Current Medication List Current Medications: Active Medications Acetaminophen (Tylenol -) 650 mg PO Q6H PRN PRN Reason: FEVER Last Admin: 09/28/19 21:23 Dose: 650 mg Albuterol/Ipratropium (Duoneb -) 1 amp NEB Q6H PRN PRN Reason: SHORTNESS OF BREATH Last Admin: 09/27/19 21:39 Dose: 1 amp Allopurinol (Zyloprim -) 300 mg PO DAILY [facility] Last Admin: 09/28/19 09:12 Dose: 300 mg Aspirin (Ecotrin -) 81 mg PO DAILY [facility] Last Admin: 09/28/19 09:12 Dose: 81 mg Atorvastatin Calcium (Lipitor -) 40 mg PO HS [facility] Last Admin: 09/28/19 21:12 Dose: 40 mg Escitalopram Oxalate (Lexapro -) 10 mg PO DAILY [facility] Last Admin: 09/28/19 09:12 Dose: 10 mg Furosemide (Lasix Injection -) 40 mg IVPUSH DAILY [facility] Last Admin: 09/28/19 09:12 Dose: 40 mg Meropenem 1 gm/ Dextrose 100 mls @ 200 mls/hr IVPB BID [facility] Last Admin: 09/28/19 21:12 Dose: 200 mls/hr Norepinephrine Bitartrate 8, (000 mcg/ Dextrose) 500 mls @ 18.75 mls/hr IV TITR [facility]; Protocol Last Admin: 09/28/19 21:12 Dose: Not Given Levothyroxine Sodium (Synthroid -) 75 mcg PO DAILY@0700 [facility] Last Admin: 09/28/19 06:28 Dose: 75 mcg Pantoprazole Sodium (Protonix -) 40 mg PO DAILY [facility] Last Admin: 09/28/19 09:12 Dose: 40 mg Sodium Zirconium Cyclosilicate (Lokelma) 10 gm PO DAILY [facility] Last Admin: 09/28/19 09:12 Dose: 10 gm Valacyclovir HCl (Valtrex -) 500 mg PO DAILY [facility] Last Admin: 09/28/19 09:12 Dose: 500 mg - Objective Vital Signs: Vital Signs Temperature 98.3 F 09/28/19 20:00 Pulse Rate 87 09/28/19 20:00 Respiratory Rate 24 H 09/28/19 20:00 Blood Pressure 106/64 09/28/19 20:00 O2 Sat by Pulse Oximetry (%) 95 09/28/19 20:56 Labs: CBC, BMP 09/28/19 05:30 09/28/19 05:30 INR, PTT INR 1.16 (0.83-1.09) H 09/20/19 04:16 Problem List - Problems (1) Acute on chronic systolic CHF (congestive heart failure) Code(s): I50.23 - ACUTE ON CHRONIC SYSTOLIC (CONGESTIVE) HEART FAILURE (2) Elevated troponin Code(s): R74.8 - ABNORMAL LEVELS OF OTHER SERUM ENZYMES (3) UTI (urinary tract infection) Code(s): N39.0 - URINARY TRACT INFECTION, SITE NOT SPECIFIED (4) HTN (hypertension) Code(s): I10 - ESSENTIAL (PRIMARY) HYPERTENSION Qualifiers: Hypertension type: unspecified Qualified Code(s): I10 - Essential (primary ) hypertension (5) Multiple myeloma Code(s): C90.00 - MULTIPLE MYELOMA NOT HAVING ACHIEVED REMISSION Qualifiers: Multiple myeloma remission status: not in remission Qualified Code(s): C90.00 - Multiple myeloma not having achieved remission (6) Diarrhea Code(s): R19.7 - DIARRHEA, UNSPECIFIED Qualifiers: Diarrhea type: unspecified type Qualified Code(s): R19.7 - Diarrhea, unspecified (7) HLD (hyperlipidemia) Code(s): E78.5 - HYPERLIPIDEMIA, UNSPECIFIED Qualifiers: Hyperlipidemia type: unspecified Qualified Code(s): E78.5 - Hyperlipidemia , unspecified (8) Hypothyroidism Code(s): E03.9 - HYPOTHYROIDISM, UNSPECIFIED Qualifiers: Hypothyroidism type: acquired Qualified Code(s): E03.9 - Hypothyroidism, unspecified (9) CAD (coronary artery disease) Code(s): I25.10 - ATHSCL HEART DISEASE OF [place] CORONARY ARTERY W/O ANG PCTRS Qualifiers: (10) Depression Code(s): F32.9 - MAJOR DEPRESSIVE DISORDER, SINGLE EPISODE, UNSPECIFIED (11) History of heart artery stent Code(s): Z95.5 - PRESENCE OF CORONARY ANGIOPLASTY IMPLANT AND GRAFT
[2019-09-29] MEDS: LEVOTHYROXINE NA 75 MCG TABLET (FP) PO SCH (06:43)
[2019-09-29 07:05] LABS: BASO % 0.7 % (0-2.0); EOS % 0.5 % (0-4.5); HEMATOCRIT 27.3 % (32.4-45.2); HEMOGLOBIN 9.1 GM/dL (10.7-15.3); LYMPH % 21.3 % (8-40); MCH 32.2 pg (25.7-33.7); MCHC 33.1 g/dl (32.0-36.0); MEAN CELL VOLUME 97.3 fl (80-96); MONO % 6.8 % (3.8-10.2); NEUT % 70.7 % (42.8-82.8); PLATELET COUNT 214 K/MM3 (134-434); RBC 2.81 M/mm3 (3.60-5.2); RDW 15.9 % (11.6-15.6); WHITE BLOOD COUNT 3.5 K/mm3 (4.0-10.0)
[2019-09-29 07:40] LABS: BILIRUBIN,TOTAL 0.3 mg/dL (0.2-1); BLOOD UREA NITROGEN 64.3 mg/dL (7-18); CREATININE 2.3 mg/dL (0.55-1.3); MAGNESIUM 2.1 mg/dL (1.8-2.4); PHOSPHOROUS 5.8 mg/dL (2.5-4.9); POTASSIUM 5.1 mmol/L (3.5-5.1); TOT PROT 6.2 g/dl (6.4-8.2)
--- NOTE | 2019-09-29 09:24 | PN ---
Teaching Attending Note Name of Resident: Manasa Mansfield ATTENDING PHYSICIAN STATEMENT I saw and evaluated the patient. I reviewed the resident's note and discussed the case with the resident. I agree with the resident's findings and plan as documented. SUBJECTIVE: Pt seen and examined in the ICU. Remains on levophed gtt. States breathing is improving. OBJECTIVE: Vital Signs Period Temp Pulse Resp BP Sys/Moss Pulse Ox Last 24 Hr 98 F-98.5 F 83-93 - 91-116/49-65 95 Intake & Output 09/26/19 09/27/19 09/28/19 09/29/19 23:59 23:59 23:59 23:59 Intake Total 440 1170 1053.2 280.2 Output Total 400 500 300 30 Balance 40 670 753.2 250.2 Weight 60.282 kg 57.72 kg 69.581 kg 71.804 kg Gen: less tachypneic Heart: RRR Lung: decreased breath sounds at the bases Abd: soft, nontender Ext: less edema CBC, BMP 09/29/19 05:45 09/29/19 05:45 Active Medications Acetaminophen (Tylenol -) 650 mg PO Q6H PRN PRN Reason: FEVER Last Admin: 09/28/19 21:23 Dose: 650 mg Albuterol/Ipratropium (Duoneb -) 1 amp NEB Q6H PRN PRN Reason: SHORTNESS OF BREATH Last Admin: 09/27/19 21:39 Dose: 1 amp Allopurinol (Zyloprim -) 300 mg PO DAILY [facility] Last Admin: 09/28/19 09:12 Dose: 300 mg Aspirin (Ecotrin -) 81 mg PO DAILY [facility] Last Admin: 09/28/19 09:12 Dose: 81 mg Atorvastatin Calcium (Lipitor -) 40 mg PO HS [facility] Last Admin: 09/28/19 21:12 Dose: 40 mg Escitalopram Oxalate (Lexapro -) 10 mg PO DAILY [facility] Last Admin: 09/28/19 09:12 Dose: 10 mg Furosemide (Lasix Injection -) 40 mg IVPUSH DAILY [facility] Last Admin: 09/28/19 09:12 Dose: 40 mg Heparin Sodium (Porcine) (Heparin -) 5,000 unit SQ TID [facility] Meropenem 1 gm/ Dextrose 100 mls @ 200 mls/hr IVPB BID [facility] Last Admin: 09/28/19 21:12 Dose: 200 mls/hr Norepinephrine Bitartrate 8, (000 mcg/ Dextrose) 500 mls @ 18.75 mls/hr IV TITR [facility]; Protocol Last Admin: 09/28/19 21:12 Dose: Not Given Levothyroxine Sodium (Synthroid -) 75 mcg PO DAILY@0700 [facility] Last Admin: 09/29/19 06:43 Dose: 75 mcg Pantoprazole Sodium (Protonix -) 40 mg PO DAILY [facility] Last Admin: 09/28/19 09:12 Dose: 40 mg Sodium Zirconium Cyclosilicate (Lokelma) 10 gm PO DAILY [facility] Last Admin: 09/28/19 09:12 Dose: 10 gm Valacyclovir HCl (Valtrex -) 500 mg PO DAILY [facility] Last Admin: 09/28/19 09:12 Dose: 500 mg ASSESSMENT AND PLAN: Acute on Chronic Systolic Heart Failure Cardiogenic Shock Acute on Chronic Renal Failure CAD Pneumonia Asthma Multiple Myeloma HTN Hyperlipidemia Hypothyroidism Anemia - continue lasix - taper levophed gtt - monitor urine output, creatinine - daily weights - antibiotics per ID - O2 to keep SpO2 >90% - inhaled bronchodilators as needed - DVT prophylaxis - continue ICU monitoring critical care time spent in reviewing chart, evaluating patient and formulating plan 35 min
[2019-09-29] MEDS ORDERED: MEROPENEM 1 GM VIAL (RESTRICTED TO ID) IVPB ONE ×2 (09:34→21:03)
[2019-09-29] MEDS ORDERED: DEXTROSE 5%-WATER 100 ML IVPB ONE ×2 (09:35→21:04)
[2019-09-29] MEDS ORDERED: PT OWN MED DRAWER 7, Y5N ONE (09:35)
[2019-09-29] MEDS: valACYclovir HCL 500 MG TABLET (FP) PO SCH (09:47)
[2019-09-29] MEDS: ASPIRIN COATED 81 MG TABLET.EC PO SCH (09:47)
[2019-09-29] MEDS: MEROPENEM 1 GM in DEXTROSE 5%-WATER 100 ML IVPB SCH ×2 (09:47→21:40)
[2019-09-29] MEDS: FUROSEMIDE 40 MG/4 ML INJECTABLE VIAL IVPUSH SCH (09:47)
[2019-09-29] MEDS: ESCITALOPRAM OXALATE 10 MG TABLET (FP) PO SCH (09:47)
[2019-09-29] MEDS: ALLOPURINOL 300 MG TABLET (FP) PO SCH (09:47)
[2019-09-29] MEDS: PANTOPRAZOLE 40 MG TABLET (FP) PO SCH (09:47)
[2019-09-29] MEDS: SODIUM ZIRCONIUM CYCLOSILICATE (LOKELMA) 5 GM PACKET PO SCH (09:48)
--- NOTE | 2019-09-29 10:30 | PN ---
Physical Exam: SUBJECTIVE: Patient seen and examined. No events overnight. Patient offers no complaints. Says she feels better than yesterday. OBJECTIVE: Vital Signs Period Temp Pulse Resp BP Sys/Moss Pulse Ox Last 24 Hr 98.1 F-98.5 F 83-93 - 91-116/49-65 95 GENERAL: a/o x 3, less tachypneic EYES: PERRL ENT: dry mucous membranes. NECK: supple. LUNGS: decreased breath sounds HEART: RRR ABDOMEN: Soft, nontender, nondistended EXTREMITIES: 2+ pulses, edema improved Laboratory Results - last 24 hr 09/29/19 09/29/19 05:45 05:45 WBC 3.5 L RBC 2.81 L Hgb 9.1 L Hct 27.3 L D MCV 97.3 H MCH 32.2 MCHC 33.1 RDW 15.9 H Plt Count 214 D MPV 9.0 Absolute Neuts (auto) 2.5 Neutrophils % 70.7 Lymphocytes % 21.3 D Monocytes % 6.8 Eosinophils % 0.5 Basophils % 0.7 Nucleated RBC % 0 Sodium 135 L Potassium 5.1 Chloride 102 Carbon Dioxide 22 Anion Gap 11 BUN 64.3 H Creatinine 2.3 H Est GFR (CKD-EPI)AfAm 23.31 Est GFR (CKD-EPI)NonAf 20.12 Random Glucose 97 Calcium 8.0 L Phosphorus 5.8 H Magnesium 2.1 Total Bilirubin 0.3 AST 13 L ALT 10 L Alkaline Phosphatase 53 Total Protein 6.2 L Albumin 1.0 L ASSESSMENT/PLAN: #Cardiogenic Shock #Acute on Chronic S CHF #Acute on Chronic Renal Failure #CAD #MM #PNA #Anemia -less congestion on cxr this am -FU AM cxr -kidney function improving -cont. Lasix daily -maintain MAP >65 -On levophed. taper as tolerated -i/o's -daily weights -IV abx -DVT ppx -cont. ICU monitoring Visit type - Emergency Visit Emergency Visit: Yes ED Registration Date: 09/20/19 Care time: The patient presented to the Emergency Department on the above date and was hospitalized for further evaluation of their emergent condition. - New Patient This patient is new to me today: Yes Date on this admission: 09/29/19 - Critical Care Critical Care patient: Yes Total Critical Care Time (in minutes): 40 Critical Care Statement: The care of this patient involved high complexity decision making to prevent further life threatening deterioration of the patient 's condition and/or to evaluate & treat vital organ system(s) failure or risk of failure. ATTENDING PHYSICIAN STATEMENT I saw and evaluated the patient. I reviewed the resident's note and discussed the case with the resident. I agree with the resident's findings and plan as documented. SUBJECTIVE: OBJECTIVE: ASSESSMENT AND PLAN:
--- NOTE | 2019-09-29 14:14 | PN ---
Progress Note (short form) - Note Progress Note: Patient seen and examiend Shortness of breath Last Vital Signs Temp Pulse Resp BP Pulse Ox 98.8 F 92 H 22 H 90/52 L 98 09/29/19 10:00 09/29/19 12:00 09/29/19 12:00 09/29/19 12:00 09/29/19 09:00 Cor: RSR, No murmurs, No gallops Lungs: decreased at bases Abd: Soft, Normal bowel sounds, No organomegaly Ext:No significant edema Abnormal Lab Results 09/29/19 09/29/19 05:45 05:45 WBC 3.5 L RBC 2.81 L Hgb 9.1 L Hct 27.3 L D MCV 97.3 H RDW 15.9 H Sodium 135 L BUN 64.3 H Creatinine 2.3 H Calcium 8.0 L Phosphorus 5.8 H AST 13 L ALT 10 L Total Protein 6.2 L Albumin 1.0 L Active Medications Generic Name Dose Route Start Last Admin Trade Name Freq PRN Reason Stop Dose Admin Acetaminophen 650 mg 09/20/19 22:25 09/28/19 21:23 Tylenol - PO 650 mg Q6H PRN Administration FEVER Allopurinol 300 mg 09/21/19 10:00 09/29/19 09:47 Zyloprim - PO 300 mg DAILY [facility] Administration Aspirin 81 mg 09/25/19 10:00 09/29/19 09:47 Ecotrin - PO 81 mg DAILY [facility] Administration Atorvastatin Calcium 40 mg 09/20/19 22:00 09/28/19 21:12 Lipitor - PO 40 mg HS [facility] Administration Escitalopram Oxalate 10 mg 09/21/19 10:00 09/29/19 09:47 Lexapro - PO 10 mg DAILY [facility] Administration Furosemide 40 mg 09/21/19 10:00 09/29/19 09:47 Lasix Injection - IVPUSH 40 mg DAILY [facility] Administration Heparin Sodium (Porcine) 5,000 unit 09/29/19 14:00 Heparin - SQ TID [facility] Meropenem 1 gm/ Dextrose 100 mls @ 200 mls/hr 09/21/19 18:30 09/29/19 09:47 IVPB 200 mls/hr BID [facility] Administration Norepinephrine Bitartrate 8, 500 mls @ 18.75 mls/hr 09/27/19 22:00 09/28/19 21:12 000 mcg/ Dextrose IV Not Given TITR [facility] Protocol 5 MCG/MIN Levothyroxine Sodium 75 mcg 09/21/19 07:00 09/29/19 06:43 Synthroid - PO 75 mcg DAILY@0700 [facility] Administration Pantoprazole Sodium 40 mg 09/21/19 10:00 09/29/19 09:47 Protonix - PO 40 mg DAILY [facility] Administration Sodium Zirconium Cyclosilicate 10 gm 09/27/19 14:00 09/29/19 09:48 Lokelma PO 10 gm DAILY [facility] Administration Valacyclovir HCl 500 mg 09/21/19 10:00 09/29/19 09:47 Valtrex - PO 500 mg DAILY [facility] Administration A/P Multiple Myeloma Amyloid CHF Anemia Fever LLL atelectasis vs infiltrate UTI On meropenem On lasix tapering levophed creatinine improved to 2.3
[2019-09-29] MEDS: HEPARIN NA (PORCINE) 5,000 UNITS/ML 1ML VIAL SQ SCH ×2 (14:26→21:38)
--- NOTE | 2019-09-29 14:54 | PN ---
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 - Current Medication List Current Medications: Active Medications Acetaminophen (Tylenol -) 650 mg PO Q6H PRN PRN Reason: FEVER Last Admin: 09/28/19 21:23 Dose: 650 mg Allopurinol (Zyloprim -) 300 mg PO DAILY [facility] Last Admin: 09/29/19 09:47 Dose: 300 mg Aspirin (Ecotrin -) 81 mg PO DAILY [facility] Last Admin: 09/29/19 09:47 Dose: 81 mg Atorvastatin Calcium (Lipitor -) 40 mg PO HS [facility] Last Admin: 09/28/19 21:12 Dose: 40 mg Escitalopram Oxalate (Lexapro -) 10 mg PO DAILY [facility] Last Admin: 09/29/19 09:47 Dose: 10 mg Furosemide (Lasix Injection -) 40 mg IVPUSH DAILY [facility] Last Admin: 09/29/19 09:47 Dose: 40 mg Heparin Sodium (Porcine) (Heparin -) 5,000 unit SQ TID [facility] Last Admin: 09/29/19 14:26 Dose: 5,000 unit Meropenem 1 gm/ Dextrose 100 mls @ 200 mls/hr IVPB BID [facility] Last Admin: 09/29/19 09:47 Dose: 200 mls/hr Norepinephrine Bitartrate 8, (000 mcg/ Dextrose) 500 mls @ 18.75 mls/hr IV TITR [facility]; Protocol Last Admin: 09/28/19 21:12 Dose: Not Given Levothyroxine Sodium (Synthroid -) 75 mcg PO DAILY@0700 [facility] Last Admin: 09/29/19 06:43 Dose: 75 mcg Pantoprazole Sodium (Protonix -) 40 mg PO DAILY [facility] Last Admin: 09/29/19 09:47 Dose: 40 mg Sodium Zirconium Cyclosilicate (Lokelma) 10 gm PO DAILY [facility] Last Admin: 09/29/19 09:48 Dose: 10 gm Valacyclovir HCl (Valtrex -) 500 mg PO DAILY [facility] Last Admin: 09/29/19 09:47 Dose: 500 mg - Objective Vital Signs: Vital Signs Temperature 98.8 F 09/29/19 10:00 Pulse Rate 92 H 09/29/19 12:00 Respiratory Rate 22 H 09/29/19 12:00 Blood Pressure 90/52 L 09/29/19 12:00 O2 Sat by Pulse Oximetry (%) 98 09/29/19 09:00 Constitutional: Yes: No Distress, Calm, Thin Neck: Yes: Supple Cardiovascular: Yes: Regular Rate and Rhythm Respiratory: Yes: Regular, Diminished, On Nasal O2 Gastrointestinal: Yes: Normal Bowel Sounds, Soft Edema: No Labs: CBC, BMP 09/29/19 05:45 09/29/19 05:45 INR, PTT INR 1.16 (0.83-1.09) H 09/20/19 04:16 - ....Imaging Chest X-ray: Report Reviewed (Decreased congestion) Assessment/Plan (1) Hypoxia Code(s): R09.02 - HYPOXEMIA (2) Weakness Code(s): R53.1 - WEAKNESS (3) ASHD (arteriosclerotic heart disease) Code(s): I25.10 - ATHSCL HEART DISEASE OF [place] CORONARY ARTERY W/O ANG PCTRS (4) Acute on chronic systolic CHF (congestive heart failure) Assessment/Plan: off losartan to raising K and bun/cr and hypotension F/u BUN/Cr, electrolytes, daily weight, Is and Os. ECHO: severely reduced LVEF; small pericardial effusion which is not hemodynamically significant; pleural effuson. Plan to re start carvedilol or metoprolol if BP and HR allow. Code(s): I50.23 - ACUTE ON CHRONIC SYSTOLIC (CONGESTIVE) HEART FAILURE (5) Adult onset hypothyroidism Assessment/Plan: elevated TSH; f/u Free T4. Code(s): E03.8 - OTHER SPECIFIED HYPOTHYROIDISM (6) Anxiety Code(s): F41.9 - ANXIETY DISORDER, UNSPECIFIED (7) Elevated troponin Code(s): R74.8 - ABNORMAL LEVELS OF OTHER SERUM ENZYMES (8) HLD (hyperlipidemia) Assessment/Plan: On statin. LDL elevated in March; f/u lipid profile. Code(s): E78.5 - HYPERLIPIDEMIA, UNSPECIFIED Qualifiers: Hyperlipidemia type: unspecified Qualified Code(s): E78.5 - Hyperlipidemia , unspecified (9) HTN (hypertension) Assessment/Plan: off losartan pending hemodynamic and renal fxn stabilization Would start beta savana if remains stable, even if BP is relatively low-normal , given severity of systolic dysfunction. 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 Acute on chronic class II NYHA classification LV systolic failure 2. CAD post TN/PCI/stent demand ischemia angina pectoris 3. HTN 4. Hyperlipidemia, not at goal 5. PNA, History of Asthma 6. History of hiatal hernia 7. Acute on CKD due to hemodynamic alterations 8. Multiple Myeloma 9. Anemia 10. Hypothyroidism PLAN: 1. Continue IV Lasix with close monitoring of renal function and electrolytes, hemodyanamics permitting 2. Taper levophed gtt for MAP>65 mmHg, resume Coreg and Entresto once hemodyanamics and renal fxn stabilize with close monitoring of renal function and electrolytes 3. Continue ASA 81 qd, Lipitor 40 qd with caution->anemia
--- NOTE | 2019-09-29 15:23 | PN ---
Progress Note, Physician History of Present Illness: Pt seen and examined at bedside. She remains in the ICU. She feels that her breathing is improved. She feels that her edema is starting to improve. - Current Medication List Current Medications: Active Medications Acetaminophen (Tylenol -) 650 mg PO Q6H PRN PRN Reason: FEVER Last Admin: 09/28/19 21:23 Dose: 650 mg Allopurinol (Zyloprim -) 300 mg PO DAILY [facility] Last Admin: 09/29/19 09:47 Dose: 300 mg Aspirin (Ecotrin -) 81 mg PO DAILY [facility] Last Admin: 09/29/19 09:47 Dose: 81 mg Atorvastatin Calcium (Lipitor -) 40 mg PO HS [facility] Last Admin: 09/28/19 21:12 Dose: 40 mg Escitalopram Oxalate (Lexapro -) 10 mg PO DAILY [facility] Last Admin: 09/29/19 09:47 Dose: 10 mg Furosemide (Lasix Injection -) 40 mg IVPUSH DAILY [facility] Last Admin: 09/29/19 09:47 Dose: 40 mg Heparin Sodium (Porcine) (Heparin -) 5,000 unit SQ TID [facility] Last Admin: 09/29/19 14:26 Dose: 5,000 unit Meropenem 1 gm/ Dextrose 100 mls @ 200 mls/hr IVPB BID [facility] Last Admin: 09/29/19 09:47 Dose: 200 mls/hr Norepinephrine Bitartrate 8, (000 mcg/ Dextrose) 500 mls @ 18.75 mls/hr IV TITR [facility]; Protocol Last Admin: 09/28/19 21:12 Dose: Not Given Levothyroxine Sodium (Synthroid -) 75 mcg PO DAILY@0700 [facility] Last Admin: 09/29/19 06:43 Dose: 75 mcg Pantoprazole Sodium (Protonix -) 40 mg PO DAILY [facility] Last Admin: 09/29/19 09:47 Dose: 40 mg Valacyclovir HCl (Valtrex -) 500 mg PO DAILY [facility] Last Admin: 09/29/19 09:47 Dose: 500 mg - Objective Vital Signs: Vital Signs Temperature 98.8 F 09/29/19 10:00 Pulse Rate 92 H 09/29/19 12:00 Respiratory Rate 22 H 09/29/19 12:00 Blood Pressure 90/52 L 09/29/19 12:00 O2 Sat by Pulse Oximetry (%) 98 09/29/19 09:00 Constitutional: Yes: Calm Eyes: Yes: Conjunctiva Clear HENT: Yes: Atraumatic Neck: Yes: Supple Cardiovascular: Yes: S1, S2 Respiratory: Yes: On Nasal O2, Rhonchi Gastrointestinal: Yes: Soft Genitourinary: Yes: Incontinence Musculoskeletal: Yes: Muscle Weakness Edema: Yes Edema: LLE: 1+, RLE: 1+ Neurological: Yes: Oriented Psychiatric: Yes: Oriented Labs: CBC, BMP 09/29/19 05:45 09/29/19 05:45 INR, PTT INR 1.16 (0.83-1.09) H 09/20/19 04:16 Assessment/Plan Current Medications Generic Name Dose Route Start Last Admin Trade Name Freq PRN Reason Stop Dose Admin Acetaminophen 650 mg 09/20/19 22:25 09/28/19 21:23 Tylenol - PO 650 mg Q6H PRN Administration FEVER Allopurinol 300 mg 09/21/19 10:00 09/29/19 09:47 Zyloprim - PO 300 mg DAILY [facility] Administration Aspirin 81 mg 09/25/19 10:00 09/29/19 09:47 Ecotrin - PO 81 mg DAILY [facility] Administration Atorvastatin Calcium 40 mg 09/20/19 22:00 09/28/19 21:12 Lipitor - PO 40 mg HS [facility] Administration Escitalopram Oxalate 10 mg 09/21/19 10:00 09/29/19 09:47 Lexapro - PO 10 mg DAILY [facility] Administration Furosemide 40 mg 09/21/19 10:00 09/29/19 09:47 Lasix Injection - IVPUSH 40 mg DAILY [facility] Administration Heparin Sodium (Porcine) 5,000 unit 09/29/19 14:00 09/29/19 14:26 Heparin - SQ 5,000 unit TID [facility] Administration Meropenem 1 gm/ Dextrose 100 mls @ 200 mls/hr 09/21/19 18:30 09/29/19 09:47 IVPB 200 mls/hr BID [facility] Administration Norepinephrine Bitartrate 8, 500 mls @ 18.75 mls/hr 09/27/19 22:00 09/28/19 21:12 000 mcg/ Dextrose IV Not Given TITR [facility] Protocol 5 MCG/MIN Levothyroxine Sodium 75 mcg 09/21/19 07:00 09/29/19 06:43 Synthroid - PO 75 mcg DAILY@0700 [facility] Administration Pantoprazole Sodium 40 mg 09/21/19 10:00 09/29/19 09:47 Protonix - PO 40 mg DAILY [facility] Administration Valacyclovir HCl 500 mg 09/21/19 10:00 09/29/19 09:47 Valtrex - PO 500 mg DAILY [facility] Administration Impression 1. proteinuria 2. multiple myeloma 3. amyloid 4. dizziness 5. hypotension 6. HLD 7. hypothyroidism 8. anemia 9. CKD 10. fluid overload 11. hypotension Plan - potassium is improved - cont lasix - hold bp meds - cont pressors - monitor bp - renal function is improving
[2019-09-29] MEDS: ATORVASTATIN CA 40 MG TABLET (FP) PO SCH (21:38)
[2019-09-29] MEDS: NOREPINEPHRINE BITARTRATE 8,000 MCG in DEXTROSE 5%-WATER - 492 ML IV SCH (21:38)
--- NOTE | 2019-09-29 22:01 | PN ---
Progress Note, Physician - Current Medication List Current Medications: Active Medications Acetaminophen (Tylenol -) 650 mg PO Q6H PRN PRN Reason: FEVER Last Admin: 09/28/19 21:23 Dose: 650 mg Allopurinol (Zyloprim -) 300 mg PO DAILY [facility] Last Admin: 09/29/19 09:47 Dose: 300 mg Aspirin (Ecotrin -) 81 mg PO DAILY [facility] Last Admin: 09/29/19 09:47 Dose: 81 mg Atorvastatin Calcium (Lipitor -) 40 mg PO HS [facility] Last Admin: 09/29/19 21:38 Dose: 40 mg Escitalopram Oxalate (Lexapro -) 10 mg PO DAILY [facility] Last Admin: 09/29/19 09:47 Dose: 10 mg Furosemide (Lasix Injection -) 40 mg IVPUSH DAILY [facility] Last Admin: 09/29/19 09:47 Dose: 40 mg Heparin Sodium (Porcine) (Heparin -) 5,000 unit SQ TID [facility] Last Admin: 09/29/19 21:38 Dose: 5,000 unit Meropenem 1 gm/ Dextrose 100 mls @ 200 mls/hr IVPB BID [facility] Last Admin: 09/29/19 21:40 Dose: 200 mls/hr Norepinephrine Bitartrate 8, (000 mcg/ Dextrose) 500 mls @ 18.75 mls/hr IV TITR [facility]; Protocol Last Admin: 09/29/19 21:38 Dose: 5 mcg/min, 18.75 mls/hr Levothyroxine Sodium (Synthroid -) 75 mcg PO DAILY@0700 [facility] Last Admin: 09/29/19 06:43 Dose: 75 mcg Pantoprazole Sodium (Protonix -) 40 mg PO DAILY [facility] Last Admin: 09/29/19 09:47 Dose: 40 mg Valacyclovir HCl (Valtrex -) 500 mg PO DAILY [facility] Last Admin: 09/29/19 09:47 Dose: 500 mg - Objective Vital Signs: Vital Signs Temperature 98.5 F 09/29/19 16:00 Pulse Rate 65 09/29/19 21:38 Respiratory Rate 21 H 09/29/19 20:00 Blood Pressure 105/54 L 09/29/19 21:38 O2 Sat by Pulse Oximetry (%) 99 09/29/19 20:56 Labs: CBC, BMP 09/29/19 05:45 09/29/19 05:45 INR, PTT INR 1.16 (0.83-1.09) H 09/20/19 04:16 Problem List - Problems (1) Acute on chronic systolic CHF (congestive heart failure) Code(s): I50.23 - ACUTE ON CHRONIC SYSTOLIC (CONGESTIVE) HEART FAILURE (2) Elevated troponin Code(s): R74.8 - ABNORMAL LEVELS OF OTHER SERUM ENZYMES (3) UTI (urinary tract infection) Code(s): N39.0 - URINARY TRACT INFECTION, SITE NOT SPECIFIED (4) HTN (hypertension) Code(s): I10 - ESSENTIAL (PRIMARY) HYPERTENSION Qualifiers: Hypertension type: unspecified Qualified Code(s): I10 - Essential (primary ) hypertension (5) Multiple myeloma Code(s): C90.00 - MULTIPLE MYELOMA NOT HAVING ACHIEVED REMISSION Qualifiers: Multiple myeloma remission status: not in remission Qualified Code(s): C90.00 - Multiple myeloma not having achieved remission (6) Diarrhea Code(s): R19.7 - [place], UNSPECIFIED Qualifiers: Diarrhea type: unspecified type Qualified Code(s): R19.7 - Diarrhea, unspecified (7) HLD (hyperlipidemia) Code(s): E78.5 - HYPERLIPIDEMIA, UNSPECIFIED Qualifiers: Hyperlipidemia type: unspecified Qualified Code(s): E78.5 - Hyperlipidemia , unspecified (8) Hypothyroidism Code(s): E03.9 - HYPOTHYROIDISM, UNSPECIFIED Qualifiers: Hypothyroidism type: acquired Qualified Code(s): E03.9 - Hypothyroidism, unspecified (9) CAD (coronary artery disease) Code(s): I25.10 - ATHSCL HEART DISEASE OF [place] CORONARY ARTERY W/O ANG PCTRS Qualifiers: (10) Depression Code(s): F32.9 - MAJOR DEPRESSIVE DISORDER, SINGLE EPISODE, UNSPECIFIED (11) History of heart artery stent Code(s): Z95.5 - PRESENCE OF CORONARY ANGIOPLASTY IMPLANT AND GRAFT
[2019-09-30] MEDS: HEPARIN NA (PORCINE) 5,000 UNITS/ML 1ML VIAL SQ SCH ×3 (06:42→21:04)
[2019-09-30] MEDS: LEVOTHYROXINE NA 75 MCG TABLET (FP) PO SCH (06:43)
[2019-09-30 07:20] LABS: EOS % 0.5 % (0-4.5); HEMATOCRIT 24.7 % (32.4-45.2); HEMOGLOBIN 8.4 GM/dL (10.7-15.3); MCH 32.9 pg (25.7-33.7); MCHC 33.9 g/dl (32.0-36.0); MEAN CELL VOLUME 97.1 fl (80-96); MEAN PLT VOLUME 8.7 fl (7.5-11.1); MONO % 7.3 % (3.8-10.2); NEUT % 68.2 % (42.8-82.8); PLATELET COUNT 171 K/MM3 (134-434); RBC 2.55 M/mm3 (3.60-5.2); RDW 15.8 % (11.6-15.6); WHITE BLOOD COUNT 2.8 K/mm3 (4.0-10.0)
[2019-09-30 07:45] LABS: ALBUMIN 0.9 g/dl (3.4-5.0); BILIRUBIN,TOTAL 0.2 mg/dL (0.2-1); BLOOD UREA NITROGEN 68.4 mg/dL (7-18); CALCIUM 7.5 mg/dL (8.5-10.1); CREATININE 1.8 mg/dL (0.55-1.3); MAGNESIUM 2.1 mg/dL (1.8-2.4); PHOSPHOROUS 5.8 mg/dL (2.5-4.9); POTASSIUM 4.5 mmol/L (3.5-5.1); TOT PROT 5.8 g/dl (6.4-8.2)
[2019-09-30] MEDS ORDERED: DEXTROSE 5%-WATER 100 ML IVPB ONE ×2 (09:02→20:40)
[2019-09-30] MEDS ORDERED: MEROPENEM 1 GM VIAL (RESTRICTED TO ID) IVPB ONE ×2 (09:02→20:40)
[2019-09-30] MEDS ORDERED: PT OWN MED DRAWER 7, Y5N ONE (09:03)
[2019-09-30] MEDS: PANTOPRAZOLE 40 MG TABLET (FP) PO SCH (09:09)
[2019-09-30] MEDS: ALLOPURINOL 300 MG TABLET (FP) PO SCH (09:09)
[2019-09-30] MEDS: valACYclovir HCL 500 MG TABLET (FP) PO SCH (09:09)
[2019-09-30] MEDS: MEROPENEM 1 GM in DEXTROSE 5%-WATER 100 ML IVPB SCH ×2 (09:09→21:05)
[2019-09-30] MEDS: ASPIRIN COATED 81 MG TABLET.EC PO SCH (09:09)
[2019-09-30] MEDS: ESCITALOPRAM OXALATE 10 MG TABLET (FP) PO SCH (09:09)
[2019-09-30] MEDS: FUROSEMIDE 40 MG/4 ML INJECTABLE VIAL IVPUSH SCH (09:10)
--- NOTE | 2019-09-30 11:57 | PN ---
Physical Exam: SUBJECTIVE: Patient seen and examined at bedside. Pt feels ok. States breathing is ok. On levophed. OBJECTIVE: Vital Signs Period Temp Pulse Resp BP Sys/Moss Pulse Ox Last 24 Hr 98.5 F-99 F 65-98 16-22 76-119/46-67 99-99 Gen: AAOx3, NAD HEENT: NCAT, EOMI Neck: R IJ in place, unable to assess for jvd Cardio: rrr, normal s1s2, no mrg noted Pulm: bibasilar crackles Abd: soft, nontender, nondistended Ext: 3+ edema b/l Laboratory Results - last 24 hr 09/30/19 09/30/19 06:30 06:30 WBC 2.8 L RBC 2.55 L Hgb 8.4 L Hct 24.7 L MCV 97.1 H MCH 32.9 MCHC 33.9 RDW 15.8 H Plt Count 171 D MPV 8.7 Absolute Neuts (auto) 1.9 Neutrophils % 68.2 Lymphocytes % 23.0 Monocytes % 7.3 Eosinophils % 0.5 Basophils % 1.0 Nucleated RBC % 0 Sodium 135 L Potassium 4.5 Chloride 104 Carbon Dioxide 24 Anion Gap 7 L BUN 68.4 H Creatinine 1.8 H Est GFR (CKD-EPI)AfAm 31.36 Est GFR (CKD-EPI)NonAf 27.06 Random Glucose 83 Calcium 7.5 L Phosphorus 5.8 H Magnesium 2.1 Total Bilirubin 0.2 AST 10 L ALT 8 L Alkaline Phosphatase 46 Total Protein 5.8 L Albumin 0.9 L Active Medications Generic Name Dose Route Start Last Admin Trade Name Freq PRN Reason Stop Dose Admin Acetaminophen 650 mg 09/20/19 22:25 09/28/19 21:23 Tylenol - PO 650 mg Q6H PRN Administration FEVER Allopurinol 300 mg 09/21/19 10:00 09/30/19 09:09 Zyloprim - PO 300 mg DAILY [facility] Administration Aspirin 81 mg 09/25/19 10:00 09/30/19 09:09 Ecotrin - PO 81 mg DAILY [facility] Administration Atorvastatin Calcium 40 mg 09/20/19 22:00 09/29/19 21:38 Lipitor - PO 40 mg HS [facility] Administration Escitalopram Oxalate 10 mg 09/21/19 10:00 09/30/19 09:09 Lexapro - PO 10 mg DAILY [facility] Administration Furosemide 40 mg 09/21/19 10:00 09/30/19 09:10 Lasix Injection - IVPUSH 40 mg DAILY [facility] Administration Heparin Sodium (Porcine) 5,000 unit 09/29/19 14:00 09/30/19 06:42 Heparin - SQ 5,000 unit TID [facility] Administration Meropenem 1 gm/ Dextrose 100 mls @ 200 mls/hr 09/21/19 18:30 09/30/19 09:09 IVPB 200 mls/hr BID [facility] Administration Norepinephrine Bitartrate 8, 500 mls @ 18.75 mls/hr 09/27/19 22:00 09/30/19 09:15 000 mcg/ Dextrose IV 6 mcg/min TITR [facility] 22.5 mls/hr Titration Protocol 5 MCG/MIN Levothyroxine Sodium 75 mcg 09/21/19 07:00 09/30/19 06:43 Synthroid - PO 75 mcg DAILY@0700 [facility] Administration Pantoprazole Sodium 40 mg 09/21/19 10:00 09/30/19 09:09 Protonix - PO 40 mg DAILY [facility] Administration Valacyclovir HCl 500 mg 09/21/19 10:00 09/30/19 09:09 Valtrex - PO 500 mg DAILY [facility] Administration ASSESSMENT/PLAN: 74 year old female with PMH HTN, HLD, CAD s/p coronary artery stenting, GERD, multiple myeloma (chemo; radiation directed at abdomen), poor LV compliance on Lasix, rectal hemorrhoids presented to ED for diarrhea x2 days associated with generalized weakness, ROGERS. Heme/Onc was consulted because of the patient's history of multiple myeloma. Multiple Myeloma -has received numerous treatments -on chemotherapy and radiation as an outpt Hypotension -pt states she typically has low BP -SBP presently in the high 80s -on levophed Tachypnea -on O2 -lungs clear to auscultation Visit type - Emergency Visit Emergency Visit: No - New Patient This patient is new to me today: No - Critical Care Critical Care patient: Yes Total Critical Care Time (in minutes): 30 Critical Care Statement: The care of this patient involved high complexity decision making to prevent further life threatening deterioration of the patient 's condition and/or to evaluate & treat vital organ system(s) failure or risk of failure. ATTENDING PHYSICIAN STATEMENT I saw and evaluated the patient. I reviewed the resident's note and discussed the case with the resident. I agree with the resident's findings and plan as documented. SUBJECTIVE: OBJECTIVE: ASSESSMENT AND PLAN:
--- NOTE | 2019-09-30 12:02 | PN ---
Progress Note (short form) - Note Progress Note: Pulm/CCM SUBJECTIVE: Pt seen and examined in the ICU. -BUN/CR still down trending but Remains on levophed gtt. slept well OBJECTIVE: Vital Signs Temp 98.5 F 09/29/19 16:00 Pulse 93 H 09/30/19 11:00 Resp 20 09/30/19 11:00 BP 98/60 09/30/19 11:00 Pulse Ox 99 09/30/19 09:00 Intake & Output 09/29/19 09/30/19 09/30/19 23:59 11:59 23:59 Intake Total 780 306 Balance 780 306 Weight 70.817 kg Intake: IV 200 183 Levophed - 8,000 Mcg In 200 183 D5w - 492 ml @ 5 MCG/MIN 18.75 mls/hr IV TITR [facility] Rx#:[id number] IVPB 100 123 Oral 480 Other: Voiding Method Incontinent Incontinent # Unmeasured Voids Void 3 3 Bowel Movement No No Weight Measurement Method Built in [facility] Gen: non-toxic, well appearing, no distress Heart: RRR Lung: decreased breath sounds at the bases Abd: soft, nontender Ext: 2+ dependent edema CBC,CMP WBC 2.8 K/mm3 (4.0-10.0) L 09/30/19 06:30 RBC 2.55 M/mm3 (3.60-5.2) L 09/30/19 06:30 Hgb 8.4 GM/dL (10.7-15.3) L 09/30/19 06:30 Hct 24.7 % (32.4-45.2) L 09/30/19 06:30 MCV 97.1 fl (80-96) H 09/30/19 06:30 MCH 32.9 pg (25.7-33.7) 09/30/19 06:30 MCHC 33.9 g/dl (32.0-36.0) 09/30/19 06:30 RDW 15.8 % (11.6-15.6) H 09/30/19 06:30 Plt Count 171 K/MM3 (134-434) D 09/30/19 06:30 MPV 8.7 fl (7.5-11.1) 09/30/19 06:30 Absolute Neuts (auto) 1.9 K/mm3 (1.5-8.0) 09/30/19 06:30 Neutrophils % 68.2 % (42.8-82.8) 09/30/19 06:30 Lymphocytes % 23.0 % (8-40) 09/30/19 06:30 Monocytes % 7.3 % (3.8-10.2) 09/30/19 06:30 Eosinophils % 0.5 % (0-4.5) 09/30/19 06:30 Basophils % 1.0 % (0-2.0) 09/30/19 06:30 Nucleated RBC % 0 % (0-0) 09/30/19 06:30 Sodium 135 mmol/L (136-145) L 09/30/19 06:30 Potassium 4.5 mmol/L (3.5-5.1) 09/30/19 06:30 Chloride 104 mmol/L (98-107) 09/30/19 06:30 Carbon Dioxide 24 mmol/L (21-32) 09/30/19 06:30 Anion Gap 7 MMOL/L (8-16) L 09/30/19 06:30 BUN 68.4 mg/dL (7-18) H 09/30/19 06:30 Creatinine 1.8 mg/dL (0.55-1.3) H 09/30/19 06:30 Est GFR (CKD-EPI)AfAm 31.36 09/30/19 06:30 Est GFR (CKD-EPI)NonAf 27.06 09/30/19 06:30 POC Glucometer 110 UNITS (80-120) 09/27/19 16:22 Random Glucose 83 mg/dL (74-106) 09/30/19 06:30 Lactic Acid 1.3 mmol/L (0.4-2.0) 09/20/19 04:16 Calcium 7.5 mg/dL (8.5-10.1) L 09/30/19 06:30 Phosphorus 5.8 mg/dL (2.5-4.9) H 09/30/19 06:30 Magnesium 2.1 mg/dL (1.8-2.4) 09/30/19 06:30 Total Bilirubin 0.2 mg/dL (0.2-1) 09/30/19 06:30 AST 10 U/L (15-37) L 09/30/19 06:30 ALT 8 U/L (13-61) L 09/30/19 06:30 Alkaline Phosphatase 46 U/L (45-117) 09/30/19 06:30 Creatine Kinase 50 U/L (26-192) 09/28/19 05:30 Troponin I 0.05 ng/ml (0.00-0.05) 09/28/19 05:30 B-Natriuretic Peptide 182644.3 pg/ml (5-450) H 09/20/19 04:16 Total Protein 5.8 g/dl (6.4-8.2) L 09/30/19 06:30 Albumin 0.9 g/dl (3.4-5.0) L 09/30/19 06:30 Triglycerides 100 mg/dL (0-150) 09/23/19 06:05 Cholesterol 153 mg/dL (50-200) 09/23/19 06:05 Total LDL Cholesterol 107 mg/dL (5-100) H 09/23/19 06:05 HDL Cholesterol 32 mg/dL (40-60) L 09/23/19 06:05 TSH 4.65 uIU/ml (0.358-3.74) H 09/23/19 06:05 Free T4 0.88 ng/dl (0.76-1.46) 09/23/19 06:05 Active Medications Acetaminophen (Tylenol -) 650 mg PO Q6H PRN PRN Reason: FEVER Last Admin: 09/28/19 21:23 Dose: 650 mg Allopurinol (Zyloprim -) 300 mg PO DAILY [facility] Last Admin: 09/30/19 09:09 Dose: 300 mg Aspirin (Ecotrin -) 81 mg PO DAILY [facility] Last Admin: 09/30/19 09:09 Dose: 81 mg Atorvastatin Calcium (Lipitor -) 40 mg PO HS [facility] Last Admin: 09/29/19 21:38 Dose: 40 mg Escitalopram Oxalate (Lexapro -) 10 mg PO DAILY [facility] Last Admin: 09/30/19 09:09 Dose: 10 mg Furosemide (Lasix Injection -) 40 mg IVPUSH DAILY [facility] Last Admin: 09/30/19 09:10 Dose: 40 mg Heparin Sodium (Porcine) (Heparin -) 5,000 unit SQ TID [facility] Last Admin: 09/30/19 06:42 Dose: 5,000 unit Meropenem 1 gm/ Dextrose 100 mls @ 200 mls/hr IVPB BID [facility] Last Admin: 09/30/19 09:09 Dose: 200 mls/hr Norepinephrine Bitartrate 8, (000 mcg/ Dextrose) 500 mls @ 18.75 mls/hr IV TITR [facility]; Protocol Last Titration: 09/30/19 09:15 Dose: 6 mcg/min, 22.5 mls/hr Levothyroxine Sodium (Synthroid -) 75 mcg PO DAILY@0700 [facility] Last Admin: 09/30/19 06:43 Dose: 75 mcg Pantoprazole Sodium (Protonix -) 40 mg PO DAILY [facility] Last Admin: 09/30/19 09:09 Dose: 40 mg Valacyclovir HCl (Valtrex -) 500 mg PO DAILY [facility] Last Admin: 09/30/19 09:09 Dose: 500 mg ASSESSMENT AND PLAN: Acute on Chronic Systolic Heart Failure Cardiogenic Shock Acute on Chronic Renal Failure CAD Pneumonia Asthma Multiple Myeloma HTN Hyperlipidemia Hypothyroidism Anemia - continue daily lasix - taper levophed gtt - monitor urine output, creatinine - daily weights - antibiotics per ID - O2 to keep SpO2 >90% - inhaled bronchodilators as needed - DVT prophylaxis - continue ICU monitoring while still on pressors critical care time spent in reviewing chart, evaluating patient and formulating plan 35 min
--- NOTE | 2019-09-30 12:05 | PN ---
Teaching Attending Note Name of Resident: Buddy Gallegos ATTENDING PHYSICIAN STATEMENT I saw and evaluated the patient. I reviewed the resident's note and discussed the case with the resident. I agree with the resident's findings and plan as documented. SUBJECTIVE: Patient seen and examined Breathing improved Less SOB and dyspneic Last Vital Signs Temp Pulse Resp BP Pulse Ox 98.5 F 93 H 20 98/60 99 09/29/19 16:00 09/30/19 11:00 09/30/19 11:00 09/30/19 11:00 09/30/19 09:00 HEENT: ZOILA, EOM Intact Oropharynx: No thrush, No mucositis Cor: RSR, No murmurs, No gallops Lungs: Clear to P&A Abd: Soft, Normal bowel sounds, No organomegaly Ext:No significant edema Skin: No rashes, Integument intact CBC, BMP 09/30/19 06:30 09/30/19 06:30 Current Medications Generic Name Dose Route Start Last Admin Trade Name Freq PRN Reason Stop Dose Admin Acetaminophen 650 mg 09/20/19 22:25 09/28/19 21:23 Tylenol - PO 650 mg Q6H PRN Administration FEVER Allopurinol 300 mg 09/21/19 10:00 09/30/19 09:09 Zyloprim - PO 300 mg DAILY [facility] Administration Aspirin 81 mg 09/25/19 10:00 09/30/19 09:09 Ecotrin - PO 81 mg DAILY [facility] Administration Atorvastatin Calcium 40 mg 09/20/19 22:00 09/29/19 21:38 Lipitor - PO 40 mg HS [facility] Administration Escitalopram Oxalate 10 mg 09/21/19 10:00 09/30/19 09:09 Lexapro - PO 10 mg DAILY [facility] Administration Furosemide 40 mg 09/21/19 10:00 09/30/19 09:10 Lasix Injection - IVPUSH 40 mg DAILY [facility] Administration Heparin Sodium (Porcine) 5,000 unit 09/29/19 14:00 09/30/19 06:42 Heparin - SQ 5,000 unit TID [facility] Administration Meropenem 1 gm/ Dextrose 100 mls @ 200 mls/hr 09/21/19 18:30 09/30/19 09:09 IVPB 200 mls/hr BID [facility] Administration Norepinephrine Bitartrate 8, 500 mls @ 18.75 mls/hr 09/27/19 22:00 09/30/19 09:15 000 mcg/ Dextrose IV 6 mcg/min TITR [facility] 22.5 mls/hr Titration Protocol 5 MCG/MIN Levothyroxine Sodium 75 mcg 09/21/19 07:00 09/30/19 06:43 Synthroid - PO 75 mcg DAILY@0700 [facility] Administration Pantoprazole Sodium 40 mg 09/21/19 10:00 09/30/19 09:09 Protonix - PO 40 mg DAILY [facility] Administration Valacyclovir HCl 500 mg 09/21/19 10:00 09/30/19 09:09 Valtrex - PO 500 mg DAILY [facility] Administration Impression: Hypotension CHF Pressor support Anemia Neutropenia Multiple myeloma-not in remission UTI DEBBIE/CKD Plan Continuing on current ICU/ critical care management. OBJECTIVE: ASSESSMENT AND PLAN:
--- NOTE | 2019-09-30 14:13 | PN ---
Progress Note, Physician History of Present Illness: Pt seen and examined at bedside. She is awake and alert. She feels that her breathing is improved. - Current Medication List Current Medications: Active Medications Acetaminophen (Tylenol -) 650 mg PO Q6H PRN PRN Reason: FEVER Last Admin: 09/28/19 21:23 Dose: 650 mg Allopurinol (Zyloprim -) 300 mg PO DAILY [facility] Last Admin: 09/30/19 09:09 Dose: 300 mg Aspirin (Ecotrin -) 81 mg PO DAILY [facility] Last Admin: 09/30/19 09:09 Dose: 81 mg Atorvastatin Calcium (Lipitor -) 40 mg PO HS [facility] Last Admin: 09/29/19 21:38 Dose: 40 mg Escitalopram Oxalate (Lexapro -) 10 mg PO DAILY [facility] Last Admin: 09/30/19 09:09 Dose: 10 mg Furosemide (Lasix Injection -) 40 mg IVPUSH DAILY [facility] Last Admin: 09/30/19 09:10 Dose: 40 mg Heparin Sodium (Porcine) (Heparin -) 5,000 unit SQ TID [facility] Last Admin: 09/30/19 13:08 Dose: 5,000 unit Meropenem 1 gm/ Dextrose 100 mls @ 200 mls/hr IVPB BID [facility] Last Admin: 09/30/19 09:09 Dose: 200 mls/hr Norepinephrine Bitartrate 8, (000 mcg/ Dextrose) 500 mls @ 18.75 mls/hr IV TITR [facility]; Protocol Last Titration: 09/30/19 09:15 Dose: 6 mcg/min, 22.5 mls/hr Levothyroxine Sodium (Synthroid -) 75 mcg PO DAILY@0700 [facility] Last Admin: 09/30/19 06:43 Dose: 75 mcg Pantoprazole Sodium (Protonix -) 40 mg PO DAILY [facility] Last Admin: 09/30/19 09:09 Dose: 40 mg Valacyclovir HCl (Valtrex -) 500 mg PO DAILY [facility] Last Admin: 09/30/19 09:09 Dose: 500 mg - Objective Vital Signs: Vital Signs Temperature 98.5 F 09/29/19 16:00 Pulse Rate 93 H 09/30/19 13:00 Respiratory Rate 21 H 09/30/19 13:00 Blood Pressure 109/68 09/30/19 13:00 O2 Sat by Pulse Oximetry (%) 99 09/30/19 09:00 Constitutional: Yes: Calm Eyes: Yes: Conjunctiva Clear Cardiovascular: Yes: S1, S2 Respiratory: Yes: CTA Bilaterally Gastrointestinal: Yes: Normal Bowel Sounds, Soft Genitourinary: Yes: Incontinence Musculoskeletal: Yes: Muscle Weakness Edema: Yes Edema: LLE: 1+, RLE: 1+ Neurological: Yes: Oriented Psychiatric: Yes: Oriented Labs: CBC, BMP 09/30/19 06:30 09/30/19 06:30 INR, PTT INR 1.16 (0.83-1.09) H 09/20/19 04:16 Assessment/Plan Current Medications Generic Name Dose Route Start Last Admin Trade Name Freq PRN Reason Stop Dose Admin Acetaminophen 650 mg 09/20/19 22:25 09/28/19 21:23 Tylenol - PO 650 mg Q6H PRN Administration FEVER Allopurinol 300 mg 09/21/19 10:00 09/30/19 09:09 Zyloprim - PO 300 mg DAILY [facility] Administration Aspirin 81 mg 09/25/19 10:00 09/30/19 09:09 Ecotrin - PO 81 mg DAILY [facility] Administration Atorvastatin Calcium 40 mg 09/20/19 22:00 09/29/19 21:38 Lipitor - PO 40 mg HS [facility] Administration Escitalopram Oxalate 10 mg 09/21/19 10:00 09/30/19 09:09 Lexapro - PO 10 mg DAILY [facility] Administration Furosemide 40 mg 09/21/19 10:00 09/30/19 09:10 Lasix Injection - IVPUSH 40 mg DAILY [facility] Administration Heparin Sodium (Porcine) 5,000 unit 09/29/19 14:00 09/30/19 13:08 Heparin - SQ 5,000 unit TID [facility] Administration Meropenem 1 gm/ Dextrose 100 mls @ 200 mls/hr 09/21/19 18:30 09/30/19 09:09 IVPB 200 mls/hr BID [facility] Administration Norepinephrine Bitartrate 8, 500 mls @ 18.75 mls/hr 09/27/19 22:00 09/30/19 09:15 000 mcg/ Dextrose IV 6 mcg/min TITR [facility] 22.5 mls/hr Titration Protocol 5 MCG/MIN Levothyroxine Sodium 75 mcg 09/21/19 07:00 09/30/19 06:43 Synthroid - PO 75 mcg DAILY@0700 [facility] Administration Pantoprazole Sodium 40 mg 09/21/19 10:00 09/30/19 09:09 Protonix - PO 40 mg DAILY [facility] Administration Valacyclovir HCl 500 mg 09/21/19 10:00 09/30/19 09:09 Valtrex - PO 500 mg DAILY [facility] Administration Impression 1. proteinuria 2. multiple myeloma 3. amyloid 4. dizziness 5. hypotension 6. HLD 7. hypothyroidism 8. anemia 9. CKD 10. fluid overload 11. hypotension Plan - cont lasix - renal function is improving - potassium stable - monitor labs daily - volume status improving - cont pressors - monitor bp
--- NOTE | 2019-09-30 14:36 | PN ---
Progress Note, Physician History of Present Illness: feeling better breathing improving strength improving - Current Medication List Current Medications: Active Medications Acetaminophen (Tylenol -) 650 mg PO Q6H PRN PRN Reason: FEVER Last Admin: 09/28/19 21:23 Dose: 650 mg Allopurinol (Zyloprim -) [address] [facility] Last Admin: 09/30/19 09:09 Dose: 300 mg Aspirin (Ecotrin -) [address] [facility] Last Admin: 09/30/19 09:09 Dose: 81 mg Atorvastatin Calcium (Lipitor -) [address] [facility] Last Admin: 09/29/19 21:38 Dose: 40 mg Escitalopram Oxalate (Lexapro -) [address] [facility] Last Admin: 09/30/19 09:09 Dose: 10 mg Furosemide (Lasix Injection -) [address] [facility] Last Admin: 09/30/19 09:10 Dose: 40 mg Heparin Sodium (Porcine) (Heparin -) 5,[address] [facility] Last Admin: 09/30/19 13:08 Dose: 5,000 unit Meropenem 1 gm/ Dextrose 100 mls @ 200 mls/hr IVPB BID [facility] Last Admin: 09/30/19 09:09 Dose: 200 mls/hr Norepinephrine Bitartrate 8, (000 mcg/ Dextrose) 500 mls @ 18.75 mls/hr IV TITR [facility]; Protocol Last Titration: 09/30/19 09:15 Dose: 6 mcg/min, 22.5 mls/hr Levothyroxine Sodium (Synthroid -) 75 mcg PO DAILY@0700 [facility] Last Admin: 09/30/19 06:43 Dose: 75 mcg Pantoprazole Sodium (Protonix -) [address] [facility] Last Admin: 09/30/19 09:09 Dose: 40 mg Valacyclovir HCl (Valtrex -) [address] [facility] Last Admin: 09/30/19 09:09 Dose: 500 mg - Objective Vital Signs: Vital Signs Temperature 98.5 F 09/29/19 16:00 Pulse Rate 93 H 09/30/19 13:00 Respiratory Rate 21 H 09/30/19 13:00 Blood Pressure 109/68 09/30/19 13:00 O2 Sat by Pulse Oximetry (%) 99 09/30/19 09:00 Constitutional: Yes: No Distress, Calm Cardiovascular: Yes: S1, S2 Respiratory: Yes: Regular, CTA Bilaterally Gastrointestinal: Yes: Normal Bowel Sounds, Soft Musculoskeletal: Yes: WNL Extremities: Yes: WNL Neurological: Yes: Alert, Oriented Psychiatric: Yes: Alert, Oriented Labs: CBC, BMP 09/30/19 06:30 09/30/19 06:30 INR, PTT INR 1.16 (0.83-1.09) H 09/20/19 04:16 Assessment/Plan Problem List - Problems (1) Anasarca Code(s): R60.1 - GENERALIZED EDEMA (2) Fluid overload Code(s): E87.70 - FLUID OVERLOAD, UNSPECIFIED (3) Hypoxia Code(s): R09.02 - HYPOXEMIA (4) Weakness Code(s): R53.1 - WEAKNESS (5) ASHD (arteriosclerotic heart disease) Code(s): I25.10 - ATHSCL HEART DISEASE OF [place] CORONARY ARTERY W/O ANG PCTRS (6) Acute exacerbation of CHF (congestive heart failure) Code(s): I50.9 - HEART FAILURE, UNSPECIFIED (7) Acute on chronic systolic CHF (congestive heart failure) Code(s): I50.23 - ACUTE ON CHRONIC SYSTOLIC (CONGESTIVE) HEART FAILURE (8) Adult onset hypothyroidism Code(s): E03.8 - OTHER SPECIFIED HYPOTHYROIDISM (9) Anemia Code(s): D64.9 - ANEMIA, UNSPECIFIED (10) CKD (chronic kidney disease) Code(s): N18.9 - CHRONIC KIDNEY DISEASE, UNSPECIFIED (11) Elevated troponin Code(s): R74.8 - ABNORMAL LEVELS OF OTHER SERUM ENZYMES (12) HLD (hyperlipidemia) Code(s): E78.5 - HYPERLIPIDEMIA, UNSPECIFIED Qualifiers: Hyperlipidemia type: unspecified Qualified Code(s): E78.5 - Hyperlipidemia , unspecified (13) HTN (hypertension) Code(s): I10 - ESSENTIAL (PRIMARY) HYPERTENSION Qualifiers: Hypertension type: unspecified Qualified Code(s): I10 - Essential (primary ) hypertension (14) History of heart artery stent Code(s): Z95.5 - PRESENCE OF CORONARY ANGIOPLASTY IMPLANT AND GRAFT (15) Multiple myeloma Code(s): C90.00 - MULTIPLE MYELOMA NOT HAVING ACHIEVED REMISSION Qualifiers: Multiple myeloma remission status: not in remission Qualified Code(s): C90.00 - Multiple myeloma not having achieved remission uti hypotension Assessment/Plan continue abx monitor for fever close monitoring rest as per icu resp support cc 40 min
--- NOTE | 2019-09-30 15:10 | PN ---
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 - Current Medication List Current Medications: Active Medications Acetaminophen (Tylenol -) 650 mg PO Q6H PRN PRN Reason: FEVER Last Admin: 09/28/19 21:23 Dose: 650 mg Allopurinol (Zyloprim -) 300 mg PO DAILY [facility] Last Admin: 09/30/19 09:09 Dose: 300 mg Aspirin (Ecotrin -) 81 mg PO DAILY [facility] Last Admin: 09/30/19 09:09 Dose: 81 mg Atorvastatin Calcium (Lipitor -) 40 mg PO HS [facility] Last Admin: 09/29/19 21:38 Dose: 40 mg Escitalopram Oxalate (Lexapro -) 10 mg PO DAILY [facility] Last Admin: 09/30/19 09:09 Dose: 10 mg Furosemide (Lasix Injection -) 40 mg IVPUSH DAILY [facility] Last Admin: 09/30/19 09:10 Dose: 40 mg Heparin Sodium (Porcine) (Heparin -) 5,000 unit SQ TID [facility] Last Admin: 09/30/19 13:08 Dose: 5,000 unit Meropenem 1 gm/ Dextrose 100 mls @ 200 mls/hr IVPB BID [facility] Last Admin: 09/30/19 09:09 Dose: 200 mls/hr Norepinephrine Bitartrate 8, (000 mcg/ Dextrose) 500 mls @ 18.75 mls/hr IV TITR [facility]; Protocol Last Titration: 09/30/19 09:15 Dose: 6 mcg/min, 22.5 mls/hr Levothyroxine Sodium (Synthroid -) 75 mcg PO DAILY@0700 [facility] Last Admin: 09/30/19 06:43 Dose: 75 mcg Pantoprazole Sodium (Protonix -) 40 mg PO DAILY [facility] Last Admin: 09/30/19 09:09 Dose: 40 mg Valacyclovir HCl (Valtrex -) 500 mg PO DAILY [facility] Last Admin: 09/30/19 09:09 Dose: 500 mg - Objective Vital Signs: Vital Signs Temperature 98.5 F 09/29/19 16:00 Pulse Rate 93 H 09/30/19 13:00 Respiratory Rate 21 H 09/30/19 13:00 Blood Pressure 109/68 09/30/19 13:00 O2 Sat by Pulse Oximetry (%) 99 09/30/19 09:00 Constitutional: Yes: No Distress, Calm, Thin Neck: Yes: Supple Cardiovascular: Yes: Regular Rate and Rhythm Respiratory: Yes: Regular, Diminished, On Nasal O2 Gastrointestinal: Yes: Normal Bowel Sounds, Soft Edema: Yes Edema: LLE: Trace, RLE: Trace Labs: CBC, BMP 09/30/19 06:30 09/30/19 06:30 INR, PTT INR 1.16 (0.83-1.09) H 09/20/19 04:16 - ....Imaging Chest X-ray: Report Reviewed (Improved congestion) Assessment/Plan (1) Hypoxia Code(s): R09.02 - HYPOXEMIA (2) Weakness Code(s): R53.1 - WEAKNESS (3) ASHD (arteriosclerotic heart disease) Code(s): I25.10 - ATHSCL HEART DISEASE OF [place] CORONARY ARTERY W/O ANG PCTRS (4) Acute on chronic systolic CHF (congestive heart failure) Assessment/Plan: off losartan to raising K and bun/cr and hypotension F/u BUN/Cr, electrolytes, daily weight, Is and Os. ECHO: severely reduced LVEF; small pericardial effusion which is not hemodynamically significant; pleural effuson. Plan to re start carvedilol or metoprolol if BP and HR allow. Code(s): I50.23 - ACUTE ON CHRONIC SYSTOLIC (CONGESTIVE) HEART FAILURE (5) Adult onset hypothyroidism Assessment/Plan: elevated TSH; f/u Free T4. Code(s): E03.8 - OTHER SPECIFIED HYPOTHYROIDISM (6) Anxiety Code(s): F41.9 - ANXIETY DISORDER, UNSPECIFIED (7) Elevated troponin Code(s): R74.8 - ABNORMAL LEVELS OF OTHER SERUM ENZYMES (8) HLD (hyperlipidemia) Assessment/Plan: On statin. LDL elevated in March; f/u lipid profile. Code(s): E78.5 - HYPERLIPIDEMIA, UNSPECIFIED Qualifiers: Hyperlipidemia type: unspecified Qualified Code(s): E78.5 - Hyperlipidemia , unspecified (9) HTN (hypertension) Assessment/Plan: off losartan pending hemodynamic and renal fxn stabilization Would start beta savana if remains stable, even if BP is relatively low-normal , given severity of systolic dysfunction. 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 Acute on chronic class II NYHA classification LV systolic failure 2. CAD post [place]/PCI/stent demand ischemia angina pectoris 3. HTN 4. Hyperlipidemia, not at goal 5. PNA, History of Asthma 6. History of hiatal hernia 7. Acute on CKD with proteinuria due to hemodynamic alterations improving 8. Multiple Myeloma 9. Anemia 10. 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 Continue IV Lasix with close monitoring of renal function and electrolytes, hemodyanamics permitting 2. Taper levophed gtt for MAP>65 mmHg, resume Coreg and Entresto once hemodyanamics and renal fxn stabilize with close monitoring of renal function and electrolytes 3. Continue ASA 81 qd, Lipitor 40 qd with caution->anemia 4. Empiric antibiotics per ID, O2 to keep SpO2 >90%, inhaled bronchodilators as needed, DVT prophylaxis
[2019-09-30] MEDS: NOREPINEPHRINE BITARTRATE 8,000 MCG in DEXTROSE 5%-WATER - 492 ML IV SCH (15:31)
[2019-09-30] MEDS: ATORVASTATIN CA 40 MG TABLET (FP) PO SCH (21:04)
--- NOTE | 2019-09-30 23:02 | PN ---
Progress Note, Physician - Current Medication List Current Medications: Active Medications Acetaminophen (Tylenol -) 650 mg PO Q6H PRN PRN Reason: FEVER Last Admin: 09/28/19 21:23 Dose: 650 mg Allopurinol (Zyloprim -) 300 mg PO DAILY [facility] Last Admin: 09/30/19 09:09 Dose: 300 mg Aspirin (Ecotrin -) 81 mg PO DAILY [facility] Last Admin: 09/30/19 09:09 Dose: 81 mg Atorvastatin Calcium (Lipitor -) 40 mg PO HS [facility] Last Admin: 09/30/19 21:04 Dose: 40 mg Escitalopram Oxalate (Lexapro -) 10 mg PO DAILY [facility] Last Admin: 09/30/19 09:09 Dose: 10 mg Furosemide (Lasix Injection -) 40 mg IVPUSH DAILY [facility] Last Admin: 09/30/19 09:10 Dose: 40 mg Heparin Sodium (Porcine) (Heparin -) 5,000 unit SQ TID [facility] Last Admin: 09/30/19 21:04 Dose: 5,000 unit Meropenem 1 gm/ Dextrose 100 mls @ 200 mls/hr IVPB BID [facility] Last Admin: 09/30/19 21:05 Dose: 200 mls/hr Norepinephrine Bitartrate 8, (000 mcg/ Dextrose) 500 mls @ 18.75 mls/hr IV TITR [facility]; Protocol Last Titration: 09/30/19 18:04 Dose: 4 mcg/min, 15 mls/hr Levothyroxine Sodium (Synthroid -) 75 mcg PO DAILY@0700 [facility] Last Admin: 09/30/19 06:43 Dose: 75 mcg Pantoprazole Sodium (Protonix -) 40 mg PO DAILY [facility] Last Admin: 09/30/19 09:09 Dose: 40 mg Valacyclovir HCl (Valtrex -) 500 mg PO DAILY [facility] Last Admin: 09/30/19 09:09 Dose: 500 mg - Objective Vital Signs: Vital Signs Temperature 97.8 F 09/30/19 22:15 Pulse Rate 98 H 09/30/19 22:15 Respiratory Rate 18 09/30/19 22:15 Blood Pressure 104/58 L 09/30/19 22:15 O2 Sat by Pulse Oximetry (%) 97 09/30/19 20:01 Labs: CBC, BMP 09/30/19 06:30 09/30/19 06:30 INR, PTT INR 1.16 (0.83-1.09) H 09/20/19 04:16 Problem List - Problems (1) Acute on chronic systolic CHF (congestive heart failure) Code(s): I50.23 - ACUTE ON CHRONIC SYSTOLIC (CONGESTIVE) HEART FAILURE (2) Elevated troponin Code(s): R74.8 - ABNORMAL LEVELS OF OTHER SERUM ENZYMES (3) UTI (urinary tract infection) Code(s): N39.0 - URINARY TRACT INFECTION, SITE NOT SPECIFIED (4) HTN (hypertension) Code(s): I10 - ESSENTIAL (PRIMARY) HYPERTENSION Qualifiers: Hypertension type: unspecified Qualified Code(s): I10 - Essential (primary ) hypertension (5) Multiple myeloma Code(s): C90.00 - MULTIPLE MYELOMA NOT HAVING ACHIEVED REMISSION Qualifiers: Multiple myeloma remission status: not in remission Qualified Code(s): C90.00 - Multiple myeloma not having achieved remission (6) Diarrhea Code(s): R19.7 - DIARRHEA, UNSPECIFIED Qualifiers: Diarrhea type: unspecified type Qualified Code(s): R19.7 - Diarrhea, unspecified (7) HLD (hyperlipidemia) Code(s): E78.5 - HYPERLIPIDEMIA, UNSPECIFIED Qualifiers: Hyperlipidemia type: unspecified Qualified Code(s): E78.5 - Hyperlipidemia , unspecified (8) Hypothyroidism Code(s): E03.9 - HYPOTHYROIDISM, UNSPECIFIED Qualifiers: Hypothyroidism type: acquired Qualified Code(s): E03.9 - Hypothyroidism, unspecified (9) CAD (coronary artery disease) Code(s): I25.10 - ATHSCL HEART DISEASE OF [place] CORONARY ARTERY W/O ANG PCTRS Qualifiers: (10) Depression Code(s): F32.9 - MAJOR DEPRESSIVE DISORDER, SINGLE EPISODE, UNSPECIFIED (11) History of heart artery stent Code(s): Z95.5 - PRESENCE OF CORONARY ANGIOPLASTY IMPLANT AND GRAFT
[2019-10-01] MEDS: NOREPINEPHRINE BITARTRATE 8,000 MCG in DEXTROSE 5%-WATER - 492 ML IV SCH (05:59)
[2019-10-01] MEDS: HEPARIN NA (PORCINE) 5,000 UNITS/ML 1ML VIAL SQ SCH ×3 (05:59→21:41)
[2019-10-01] MEDS: LEVOTHYROXINE NA 75 MCG TABLET (FP) PO SCH (06:00)
[2019-10-01 07:41] LABS: HEMATOCRIT 24.6 % (32.4-45.2); HEMOGLOBIN 8.3 GM/dL (10.7-15.3); MCH 32.7 pg (25.7-33.7); MCHC 33.8 g/dl (32.0-36.0); MEAN CELL VOLUME 96.8 fl (80-96); PLATELET COUNT 180 K/MM3 (134-434); RBC 2.54 M/mm3 (3.60-5.2); RDW 15.6 % (11.6-15.6)
[2019-10-01 07:47] LABS: BLOOD UREA NITROGEN 63.2 mg/dL (7-18); CREATININE 1.5 mg/dL (0.55-1.3); MAGNESIUM 2.1 mg/dL (1.8-2.4); PHOSPHOROUS 4.9 mg/dL (2.5-4.9); POTASSIUM 4.4 mmol/L (3.5-5.1)
[2019-10-01] MEDS ORDERED: PT OWN MED DRAWER 7, Y5N ONE (09:46)
[2019-10-01] MEDS ORDERED: MEROPENEM 1 GM VIAL (RESTRICTED TO ID) IVPB ONE ×2 (09:46→21:38)
[2019-10-01] MEDS ORDERED: DEXTROSE 5%-WATER 100 ML IVPB ONE ×2 (09:46→21:38)
[2019-10-01] MEDS: ALLOPURINOL 300 MG TABLET (FP) PO SCH (09:55)
[2019-10-01] MEDS: ASPIRIN COATED 81 MG TABLET.EC PO SCH (09:55)
[2019-10-01] MEDS: FUROSEMIDE 40 MG/4 ML INJECTABLE VIAL IVPUSH SCH (09:55)
[2019-10-01] MEDS: ESCITALOPRAM OXALATE 10 MG TABLET (FP) PO SCH (09:55)
[2019-10-01] MEDS: PANTOPRAZOLE 40 MG TABLET (FP) PO SCH (09:55)
[2019-10-01] MEDS: MEROPENEM 1 GM in DEXTROSE 5%-WATER 100 ML IVPB SCH ×2 (09:55→21:40)
[2019-10-01] MEDS: valACYclovir HCL 500 MG TABLET (FP) PO SCH (09:56)
--- NOTE | 2019-10-01 10:04 | PN ---
Progress Note (short form) - Note Progress Note: Renal follow up for CKD/Volume overload coverage for Dr. Hameed Seen and examined in the ICU awake and alert feels better, no sob, cp, abd pain, fever or chills making urine on IV lasix Vital Signs Temperature 98.4 F 10/01/19 06:00 Pulse Rate 88 10/01/19 09:54 Respiratory Rate 20 10/01/19 09:53 Blood Pressure 78/48 L 10/01/19 09:54 O2 Sat by Pulse Oximetry (%) 96 10/01/19 07:52 Intake & Output 09/28/19 09/29/19 09/30/19 10/01/19 23:59 23:59 23:59 23:59 Intake Total 1053.2 1060.2 1105 260 Output Total 300 30 250 Balance 753.2 1030.2 855 260 Weight 69.581 kg 71.804 kg 70.817 kg 70.896 kg NAD awake and alert RRR CTA soft NT/ND no LE edema CBC, BMP 10/01/19 05:45 10/01/19 05:45 Current Medications Acetaminophen (Tylenol -) 650 mg PO Q6H PRN PRN Reason: FEVER Last Admin: 09/28/19 21:23 Dose: 650 mg Allopurinol (Zyloprim -) 300 mg PO DAILY [facility] Last Admin: 10/01/19 09:55 Dose: 300 mg Aspirin (Ecotrin -) 81 mg PO DAILY [facility] Last Admin: 10/01/19 09:55 Dose: 81 mg Atorvastatin Calcium (Lipitor -) 40 mg PO HS [facility] Last Admin: 09/30/19 21:04 Dose: 40 mg Escitalopram Oxalate (Lexapro -) 10 mg PO DAILY [facility] Last Admin: 10/01/19 09:55 Dose: 10 mg Furosemide (Lasix Injection -) 40 mg IVPUSH DAILY [facility] Last Admin: 10/01/19 09:55 Dose: 40 mg Heparin Sodium (Porcine) (Heparin -) 5,000 unit SQ TID [facility] Last Admin: 10/01/19 05:59 Dose: 5,000 unit Meropenem 1 gm/ Dextrose 100 mls @ 200 mls/hr IVPB BID [facility] Last Admin: 10/01/19 09:55 Dose: 200 mls/hr Norepinephrine Bitartrate 8, (000 mcg/ Dextrose) 500 mls @ 18.75 mls/hr IV TITR [facility]; Protocol Last Titration: 10/01/19 09:54 Dose: 4 mcg/min, 15 mls/hr Levothyroxine Sodium (Synthroid -) 75 mcg PO DAILY@0700 [facility] Last Admin: 10/01/19 06:00 Dose: 75 mcg Pantoprazole Sodium (Protonix -) 40 mg PO DAILY [facility] Last Admin: 10/01/19 09:55 Dose: 40 mg Valacyclovir HCl (Valtrex -) 500 mg PO DAILY [facility] Last Admin: 10/01/19 09:56 Dose: 500 mg 1. proteinuria 2. multiple myeloma 3. amyloid 4. dizziness 5. hypotension 6. HLD 7. hypothyroidism 8. anemia 9. CKD 10. fluid overload 11. hypotension Plan Renal function stable continue IV Lasix for management of fluid overload continue vasopressers to maintain MAP > 65 Trend renal function and electrolytes daily Thank you Manuel Sage DO
--- NOTE | 2019-10-01 11:11 | PN ---
Progress Note (short form) - Note Progress Note: Patient seen in follow up. No new complaints. No significant events overnight. States she feels much better than yesterday - denies dyspnea. Still on pressors an maintaining blood pressure. Diuresing Inpatient Meds reviewed. Current Medications Acetaminophen (Tylenol -) 650 mg PO Q6H PRN PRN Reason: FEVER Last Admin: 09/28/19 21:23 Dose: 650 mg Allopurinol (Zyloprim -) 300 mg PO DAILY [facility] Last Admin: 10/01/19 09:55 Dose: 300 mg Aspirin (Ecotrin -) 81 mg PO DAILY [facility] Last Admin: 10/01/19 09:55 Dose: 81 mg Atorvastatin Calcium (Lipitor -) 40 mg PO HS [facility] Last Admin: 09/30/19 21:04 Dose: 40 mg Escitalopram Oxalate (Lexapro -) 10 mg PO DAILY [facility] Last Admin: 10/01/19 09:55 Dose: 10 mg Furosemide (Lasix Injection -) 40 mg IVPUSH DAILY [facility] Last Admin: 10/01/19 09:55 Dose: 40 mg Heparin Sodium (Porcine) (Heparin -) 5,000 unit SQ TID [facility] Last Admin: 10/01/19 05:59 Dose: 5,000 unit Meropenem 1 gm/ Dextrose 100 mls @ 200 mls/hr IVPB BID [facility] Last Admin: 10/01/19 09:55 Dose: 200 mls/hr Norepinephrine Bitartrate 8, (000 mcg/ Dextrose) 500 mls @ 18.75 mls/hr IV TITR [facility]; Protocol Last Titration: 10/01/19 09:54 Dose: 4 mcg/min, 15 mls/hr Levothyroxine Sodium (Synthroid -) 75 mcg PO DAILY@0700 [facility] Last Admin: 10/01/19 06:00 Dose: 75 mcg Pantoprazole Sodium (Protonix -) 40 mg PO DAILY [facility] Last Admin: 10/01/19 09:55 Dose: 40 mg Valacyclovir HCl (Valtrex -) 500 mg PO DAILY [facility] Last Admin: 10/01/19 09:56 Dose: 500 mg On Examination: Last Vital Signs Temp Pulse Resp BP Pulse Ox 98.6 F 86 20 93/56 L 96 10/01/19 10:09 10/01/19 10:09 10/01/19 10:09 10/01/19 10:09 10/01/19 07:52 General: In no acute distress, lying comfortably in bed. Extremities: No pallor or icterus. Bilateral mild pedal edema. No palpable lymphadenopathy. CVS: S1, S2, regular, no gallop or murmur. Chest: good air entry bilaterally, clear Abdomen: Non-distended, non-tender, no palpable organomegaly. Neuro: Alert, oriented, non-focal. Labs: Last Vital Signs Temp Pulse Resp BP Pulse Ox 98.6 F 86 20 93/56 L 96 10/01/19 10:09 10/01/19 10:09 10/01/19 10:10/01/19 10:10/01/19 07:52 Assessment. Myeloma - controlled disease - currently receiving Velcade/Dex/Cytoxan -(since June 2019) Counts stable. Lambda LC stable over past 4 months. Admitted with decompensated CHF (CAD) - recemtly with hypotension requiring admission to ICU for inotropic support - improving now Continues to have very high lambda serum LC burden - consider whether element of cardiac amyloidosis.
--- NOTE | 2019-10-01 12:05 | PN ---
Progress Note (short form) - Note Progress Note: Pulm/CCM SUBJECTIVE: Pt seen and examined in the ICU. -BUN/CR continue to downtrend nicely - I/O show + fluid balance but suspect are missing some UOP as less edema - no distress, afebrile OBJECTIVE: Vital Signs Temp 98.6 F 10/01/19 10:09 Pulse 86 10/01/19 10:09 Resp 20 10/01/19 10:09 BP 93/56 L 10/01/19 10:09 Pulse Ox 96 10/01/19 07:52 Intake & Output 09/30/19 10/01/19 10/01/19 23:59 11:59 23:59 Intake Total 799 260 Output Total 250 Balance 549 260 Weight 70.896 kg Intake: IV 219 60 Levophed - 8,000 Mcg In 219 60 D5w - 492 ml @ 5 MCG/MIN 18.75 mls/hr IV TITR [facility] Rx#:[id number] IVPB 100 100 Oral 480 100 Output: Urine 250 Void 250 Other: Voiding Method Incontinent # Unmeasured Voids Void 2 1 Bowel Movement No Body Mass Index (BMI) 26.7 Gen: non-toxic, well appearing, no distress Heart: RRR Lung: decreased breath sounds at the bases Abd: soft, nontender Ext: 2+ dependent edema CBCD WBC 3.0 K/mm3 (4.0-10.0) L 10/01/19 05:45 RBC 2.54 M/mm3 (3.60-5.2) L 10/01/19 05:45 Hgb 8.3 GM/dL (10.7-15.3) L 10/01/19 05:45 Hct 24.6 % (32.4-45.2) L 10/01/19 05:45 MCV 96.8 fl (80-96) H 10/01/19 05:45 MCHC 33.8 g/dl (32.0-36.0) 10/01/19 05:45 RDW 15.6 % (11.6-15.6) 10/01/19 05:45 Plt Count 180 K/MM3 (134-434) 10/01/19 05:45 MPV 9.0 fl (7.5-11.1) 10/01/19 05:45 CMP Sodium 136 mmol/L (136-145) 10/01/19 05:45 Potassium 4.4 mmol/L (3.5-5.1) 10/01/19 05:45 Chloride 102 mmol/L (98-107) 10/01/19 05:45 Carbon Dioxide 24 mmol/L (21-32) 10/01/19 05:45 Anion Gap 10 MMOL/L (8-16) 10/01/19 05:45 BUN 63.2 mg/dL (7-18) H 10/01/19 05:45 Creatinine 1.5 mg/dL (0.55-1.3) H 10/01/19 05:45 Calcium 8.0 mg/dL (8.5-10.1) L 10/01/19 05:45 Total Bilirubin 0.2 mg/dL (0.2-1) 09/30/19 06:30 AST 10 U/L (15-37) L 09/30/19 06:30 ALT 8 U/L (13-61) L 09/30/19 06:30 Alkaline Phosphatase 46 U/L (45-117) 09/30/19 06:30 Total Protein 5.8 g/dl (6.4-8.2) L 09/30/19 06:30 Albumin 0.9 g/dl (3.4-5.0) L 09/30/19 06:30 Active Medications Acetaminophen (Tylenol -) 650 mg PO Q6H PRN PRN Reason: FEVER Last Admin: 09/28/19 21:23 Dose: 650 mg Allopurinol (Zyloprim -) 300 mg PO DAILY [facility] Last Admin: 10/01/19 09:55 Dose: 300 mg Aspirin (Ecotrin -) 81 mg PO DAILY [facility] Last Admin: 10/01/19 09:55 Dose: 81 mg Atorvastatin Calcium (Lipitor -) 40 mg PO HS [facility] Last Admin: 09/30/19 21:04 Dose: 40 mg Escitalopram Oxalate (Lexapro -) 10 mg PO DAILY [facility] Last Admin: 10/01/19 09:55 Dose: 10 mg Furosemide (Lasix Injection -) 40 mg IVPUSH DAILY [facility] Last Admin: 10/01/19 09:55 Dose: 40 mg Heparin Sodium (Porcine) (Heparin -) 5,000 unit SQ TID [facility] Last Admin: 10/01/19 05:59 Dose: 5,000 unit Meropenem 1 gm/ Dextrose 100 mls @ 200 mls/hr IVPB BID [facility] Last Admin: 10/01/19 09:55 Dose: 200 mls/hr Norepinephrine Bitartrate 8, (000 mcg/ Dextrose) 500 mls @ 18.75 mls/hr IV TITR [facility]; Protocol Last Titration: 10/01/19 09:54 Dose: 4 mcg/min, 15 mls/hr Levothyroxine Sodium (Synthroid -) 75 mcg PO DAILY@0700 [facility] Last Admin: 10/01/19 06:00 Dose: 75 mcg Pantoprazole Sodium (Protonix -) 40 mg PO DAILY [facility] Last Admin: 10/01/19 09:55 Dose: 40 mg Valacyclovir HCl (Valtrex -) 500 mg PO DAILY [facility] Last Admin: 10/01/19 09:56 Dose: 500 mg ASSESSMENT AND PLAN: Acute on Chronic Systolic Heart Failure Cardiogenic Shock Acute on Chronic Renal Failure CAD Pneumonia Asthma Multiple Myeloma HTN Hyperlipidemia Hypothyroidism Anemia - continue daily lasix - taper levophed gtt - monitor urine output, creatinine - daily weights - antibiotics per ID - O2 to keep SpO2 >90% - inhaled bronchodilators as needed - DVT prophylaxis - continue ICU monitoring while still on pressors, attempted to come off but BP in 70s critical care time spent in reviewing chart, evaluating patient and formulating plan 35 min
--- NOTE | 2019-10-01 12:07 | PN ---
Progress Note, Physician History of Present Illness: improving on pressors - Current Medication List Current Medications: Active Medications Acetaminophen (Tylenol -) 650 mg PO Q6H PRN PRN Reason: FEVER Last Admin: 09/28/19 21:23 Dose: 650 mg Allopurinol (Zyloprim -) 300 mg PO DAILY [facility] Last Admin: 10/01/19 09:55 Dose: 300 mg Aspirin (Ecotrin -) 81 mg PO DAILY [facility] Last Admin: 10/01/19 09:55 Dose: 81 mg Atorvastatin Calcium (Lipitor -) 40 mg PO HS [facility] Last Admin: 09/30/19 21:04 Dose: 40 mg Escitalopram Oxalate (Lexapro -) 10 mg PO DAILY [facility] Last Admin: 10/01/19 09:55 Dose: 10 mg Furosemide (Lasix Injection -) 40 mg IVPUSH DAILY [facility] Last Admin: 10/01/19 09:55 Dose: 40 mg Heparin Sodium (Porcine) (Heparin -) 5,000 unit SQ TID [facility] Last Admin: 10/01/19 05:59 Dose: 5,000 unit Meropenem 1 gm/ Dextrose 100 mls @ 200 mls/hr IVPB BID [facility] Last Admin: 10/01/19 09:55 Dose: 200 mls/hr Norepinephrine Bitartrate 8, (000 mcg/ Dextrose) 500 mls @ 18.75 mls/hr IV TITR [facility]; Protocol Last Titration: 10/01/19 09:54 Dose: 4 mcg/min, 15 mls/hr Levothyroxine Sodium (Synthroid -) 75 mcg PO DAILY@0700 [facility] Last Admin: 10/01/19 06:00 Dose: 75 mcg Pantoprazole Sodium (Protonix -) 40 mg PO DAILY [facility] Last Admin: 10/01/19 09:55 Dose: 40 mg Valacyclovir HCl (Valtrex -) 500 mg PO DAILY [facility] Last Admin: 10/01/19 09:56 Dose: 500 mg - Objective Vital Signs: Vital Signs Temperature 98.6 F 10/01/19 10:09 Pulse Rate 86 10/01/19 10:09 Respiratory Rate 20 10/01/19 10:09 Blood Pressure 93/56 L 10/01/19 10:09 O2 Sat by Pulse Oximetry (%) 96 10/01/19 07:52 Constitutional: Yes: No Distress, Calm Cardiovascular: Yes: S1, S2 Respiratory: Yes: Regular, On Nasal O2 Gastrointestinal: Yes: Normal Bowel Sounds, Soft Musculoskeletal: Yes: WNL Extremities: Yes: Other Neurological: Yes: Alert, Oriented Psychiatric: Yes: Alert, Oriented Labs: CBC, BMP 10/01/19 05:45 10/01/19 05:45 INR, PTT INR 1.16 (0.83-1.09) H 09/20/19 04:16 Assessment/Plan Problem List - Problems (1) Anasarca Code(s): R60.1 - GENERALIZED EDEMA (2) Fluid overload Code(s): E87.70 - FLUID OVERLOAD, UNSPECIFIED (3) Hypoxia Code(s): R09.02 - HYPOXEMIA (4) Weakness Code(s): R53.1 - WEAKNESS (5) ASHD (arteriosclerotic heart disease) Code(s): I25.10 - ATHSCL HEART DISEASE OF [place] CORONARY ARTERY W/O ANG PCTRS (6) Acute exacerbation of CHF (congestive heart failure) Code(s): I50.9 - HEART FAILURE, UNSPECIFIED (7) Acute on chronic systolic CHF (congestive heart failure) Code(s): I50.23 - ACUTE ON CHRONIC SYSTOLIC (CONGESTIVE) HEART FAILURE (8) Adult onset hypothyroidism Code(s): E03.8 - OTHER SPECIFIED HYPOTHYROIDISM (9) Anemia Code(s): D64.9 - ANEMIA, UNSPECIFIED (10) CKD (chronic kidney disease) Code(s): N18.9 - CHRONIC KIDNEY DISEASE, UNSPECIFIED (11) Elevated troponin Code(s): R74.8 - ABNORMAL LEVELS OF OTHER SERUM ENZYMES (12) HLD (hyperlipidemia) Code(s): E78.5 - HYPERLIPIDEMIA, UNSPECIFIED Qualifiers: Hyperlipidemia type: unspecified Qualified Code(s): E78.5 - Hyperlipidemia , unspecified (13) HTN (hypertension) Code(s): I10 - ESSENTIAL (PRIMARY) HYPERTENSION Qualifiers: Hypertension type: unspecified Qualified Code(s): I10 - Essential (primary ) hypertension (14) History of heart artery stent Code(s): Z95.5 - PRESENCE OF CORONARY ANGIOPLASTY IMPLANT AND GRAFT (15) Multiple myeloma Code(s): C90.00 - MULTIPLE MYELOMA NOT HAVING ACHIEVED REMISSION Qualifiers: Multiple myeloma remission status: not in remission Qualified Code(s): C90.00 - Multiple myeloma not having achieved remission uti hypotension Assessment/Plan continue abx monitor for fever close monitoring rest as per icu resp support cc 40 min
--- NOTE | 2019-10-01 15:29 | PN ---
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 Attempting to wean Levophed gtt. - Current Medication List Current Medications: Active Medications Acetaminophen (Tylenol -) 650 mg PO Q6H PRN PRN Reason: FEVER Last Admin: 09/28/19 21:23 Dose: 650 mg Allopurinol (Zyloprim -) 300 mg PO DAILY [facility] Last Admin: 10/01/19 09:55 Dose: 300 mg Aspirin (Ecotrin -) 81 mg PO DAILY [facility] Last Admin: 10/01/19 09:55 Dose: 81 mg Atorvastatin Calcium (Lipitor -) 40 mg PO HS [facility] Last Admin: 09/30/19 21:04 Dose: 40 mg Escitalopram Oxalate (Lexapro -) 10 mg PO DAILY [facility] Last Admin: 10/01/19 09:55 Dose: 10 mg Furosemide (Lasix Injection -) 40 mg IVPUSH DAILY [facility] Last Admin: 10/01/19 09:55 Dose: 40 mg Heparin Sodium (Porcine) (Heparin -) 5,000 unit SQ TID [facility] Last Admin: 10/01/19 14:29 Dose: 5,000 unit Meropenem 1 gm/ Dextrose 100 mls @ 200 mls/hr IVPB BID [facility] Last Admin: 10/01/19 09:55 Dose: 200 mls/hr Norepinephrine Bitartrate 8, (000 mcg/ Dextrose) 500 mls @ 18.75 mls/hr IV TITR [facility]; Protocol Last Titration: 10/01/19 13:00 Dose: 5 mcg/min, 18.75 mls/hr Levothyroxine Sodium (Synthroid -) 75 mcg PO DAILY@0700 [facility] Last Admin: 10/01/19 06:00 Dose: 75 mcg Pantoprazole Sodium (Protonix -) 40 mg PO DAILY [facility] Last Admin: 10/01/19 09:55 Dose: 40 mg Valacyclovir HCl (Valtrex -) 500 mg PO DAILY [facility] Last Admin: 10/01/19 09:56 Dose: 500 mg - Objective Vital Signs: Vital Signs Temperature 98.2 F 10/01/19 13:59 Pulse Rate 96 H 10/01/19 13:59 Respiratory Rate 24 H 10/01/19 13:59 Blood Pressure 94/52 L 10/01/19 13:59 O2 Sat by Pulse Oximetry (%) 95 10/01/19 14:37 Constitutional: Yes: No Distress, Calm Neck: Yes: Supple Cardiovascular: Yes: Regular Rate and Rhythm Respiratory: Yes: Regular, Diminished, On Nasal O2 Gastrointestinal: Yes: Normal Bowel Sounds, Soft Edema: Yes Edema: LLE: 1+, RLE: 1+ Labs: CBC, BMP 10/01/19 05:45 10/01/19 05:45 INR, PTT INR 1.16 (0.83-1.09) H 09/20/19 04:16 - ....Imaging EKG: Report Reviewed (Tele: ST) Assessment/Plan (1) Hypoxia Code(s): R09.02 - HYPOXEMIA (2) Weakness Code(s): R53.1 - WEAKNESS (3) ASHD (arteriosclerotic heart disease) Code(s): I25.10 - ATHSCL HEART DISEASE OF [place] CORONARY ARTERY W/O ANG PCTRS (4) Acute on chronic systolic CHF (congestive heart failure) Assessment/Plan: off losartan to raising K and bun/cr and hypotension F/u BUN/Cr, electrolytes, daily weight, Is and Os. ECHO: severely reduced LVEF; small pericardial effusion which is not hemodynamically significant; pleural effuson. Plan to re start carvedilol or metoprolol if BP and HR allow. Code(s): I50.23 - ACUTE ON CHRONIC SYSTOLIC (CONGESTIVE) HEART FAILURE (5) Adult onset hypothyroidism Assessment/Plan: elevated TSH; f/u Free T4. Code(s): E03.8 - OTHER SPECIFIED HYPOTHYROIDISM (6) Anxiety Code(s): F41.9 - ANXIETY DISORDER, UNSPECIFIED (7) Elevated troponin Code(s): R74.8 - ABNORMAL LEVELS OF OTHER SERUM ENZYMES (8) HLD (hyperlipidemia) Assessment/Plan: On statin. LDL elevated in March; f/u lipid profile. Code(s): E78.5 - HYPERLIPIDEMIA, UNSPECIFIED Qualifiers: Hyperlipidemia type: unspecified Qualified Code(s): E78.5 - Hyperlipidemia , unspecified (9) HTN (hypertension) Assessment/Plan: off losartan pending hemodynamic and renal fxn stabilization Would start beta savana if remains stable, even if BP is relatively low-normal , given severity of systolic dysfunction. 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 Acute on chronic class II NYHA classification LV systolic failure 2. CAD post MN/PCI/stent demand ischemia angina pectoris 3. HTN 4. Hyperlipidemia, not at goal 5. PNA, History of Asthma 6. History of hiatal hernia 7. Acute on CKD with proteinuria due to hemodynamic alterations improving 8. Multiple Myeloma 9. Anemia 10. 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 Continue IV Lasix with close monitoring of renal function and electrolytes, hemodyanamics permitting 2. Taper levophed gtt for MAP>65 mmHg, consider trial of midodrine for assistance in pressor wean, resume Coreg and Entresto once hemodyanamics and renal fxn stabilize with close monitoring of renal function and electrolytes 3. Continue ASA 81 qd, Lipitor 40 qd with caution->anemia 4. Empiric antibiotics per ID, O2 to keep SpO2 >90%, inhaled bronchodilators as needed, DVT prophylaxis
[2019-10-01] MEDS: ATORVASTATIN CA 40 MG TABLET (FP) PO SCH (21:40)
--- NOTE | 2019-10-01 23:56 | PN ---
Progress Note, Physician - Current Medication List Current Medications: Active Medications Acetaminophen (Tylenol -) 650 mg PO Q6H PRN PRN Reason: FEVER Last Admin: 09/28/19 21:23 Dose: 650 mg Allopurinol (Zyloprim -) 300 mg PO DAILY [facility] Last Admin: 10/01/19 09:55 Dose: 300 mg Aspirin (Ecotrin -) 81 mg PO DAILY [facility] Last Admin: 10/01/19 09:55 Dose: 81 mg Atorvastatin Calcium (Lipitor -) 40 mg PO HS [facility] Last Admin: 10/01/19 21:40 Dose: 40 mg Escitalopram Oxalate (Lexapro -) 10 mg PO DAILY [facility] Last Admin: 10/01/19 09:55 Dose: 10 mg Furosemide (Lasix Injection -) 40 mg IVPUSH DAILY [facility] Last Admin: 10/01/19 09:55 Dose: 40 mg Heparin Sodium (Porcine) (Heparin -) 5,000 unit SQ TID [facility] Last Admin: 10/01/19 21:41 Dose: 5,000 unit Meropenem 1 gm/ Dextrose 100 mls @ 200 mls/hr IVPB BID [facility] Last Admin: 10/01/19 21:40 Dose: 200 mls/hr Norepinephrine Bitartrate 8, (000 mcg/ Dextrose) 500 mls @ 18.75 mls/hr IV TITR [facility]; Protocol Last Titration: 10/01/19 13:00 Dose: 5 mcg/min, 18.75 mls/hr Levothyroxine Sodium (Synthroid -) 75 mcg PO DAILY@0700 [facility] Last Admin: 10/01/19 06:00 Dose: 75 mcg Pantoprazole Sodium (Protonix -) 40 mg PO DAILY [facility] Last Admin: 10/01/19 09:55 Dose: 40 mg Valacyclovir HCl (Valtrex -) 500 mg PO DAILY [facility] Last Admin: 10/01/19 09:56 Dose: 500 mg - Objective Vital Signs: Vital Signs Temperature 99 F 10/01/19 22:00 Pulse Rate 100 H 10/01/19 22:00 Respiratory Rate 25 H 10/01/19 22:00 Blood Pressure 93/60 10/01/19 22:00 O2 Sat by Pulse Oximetry (%) 95 10/01/19 19:55 Labs: CBC, BMP 10/01/19 05:45 10/01/19 05:45 INR, PTT INR 1.16 (0.83-1.09) H 09/20/19 04:16 Problem List - Problems (1) Acute on chronic systolic CHF (congestive heart failure) Code(s): I50.23 - ACUTE ON CHRONIC SYSTOLIC (CONGESTIVE) HEART FAILURE (2) Elevated troponin Code(s): R74.8 - ABNORMAL LEVELS OF OTHER SERUM ENZYMES (3) UTI (urinary tract infection) Code(s): N39.0 - URINARY TRACT INFECTION, SITE NOT SPECIFIED (4) HTN (hypertension) Code(s): I10 - ESSENTIAL (PRIMARY) HYPERTENSION Qualifiers: Hypertension type: unspecified Qualified Code(s): I10 - Essential (primary ) hypertension (5) Multiple myeloma Code(s): C90.00 - MULTIPLE MYELOMA NOT HAVING ACHIEVED REMISSION Qualifiers: Multiple myeloma remission status: not in remission Qualified Code(s): C90.00 - Multiple myeloma not having achieved remission (6) Diarrhea Code(s): R19.7 - DIARRHEA, UNSPECIFIED Qualifiers: Diarrhea type: unspecified type Qualified Code(s): R19.7 - Diarrhea, unspecified (7) HLD (hyperlipidemia) Code(s): E78.5 - HYPERLIPIDEMIA, UNSPECIFIED Qualifiers: Hyperlipidemia type: unspecified Qualified Code(s): E78.5 - Hyperlipidemia , unspecified (8) Hypothyroidism Code(s): E03.9 - HYPOTHYROIDISM, UNSPECIFIED Qualifiers: Hypothyroidism type: acquired Qualified Code(s): E03.9 - Hypothyroidism, unspecified (9) CAD (coronary artery disease) Code(s): I25.10 - ATHSCL HEART DISEASE OF [place] CORONARY ARTERY W/O ANG PCTRS Qualifiers: (10) Depression Code(s): F32.9 - MAJOR DEPRESSIVE DISORDER, SINGLE EPISODE, UNSPECIFIED (11) History of heart artery stent Code(s): Z95.5 - PRESENCE OF CORONARY ANGIOPLASTY IMPLANT AND GRAFT
[2019-10-02] MEDS: HEPARIN NA (PORCINE) 5,000 UNITS/ML 1ML VIAL SQ SCH ×3 (06:12→21:07)
[2019-10-02] MEDS: LEVOTHYROXINE NA 75 MCG TABLET (FP) PO SCH (06:12)
[2019-10-02] MEDS: NOREPINEPHRINE BITARTRATE 8,000 MCG in DEXTROSE 5%-WATER - 492 ML IV SCH (06:13)
[2019-10-02 07:01] LABS: HEMATOCRIT 24.5 % (32.4-45.2); MCH 31.8 pg (25.7-33.7); MCHC 32.6 g/dl (32.0-36.0); MEAN CELL VOLUME 97.6 fl (80-96); MEAN PLT VOLUME 8.9 fl (7.5-11.1); PLATELET COUNT 180 K/MM3 (134-434); RBC 2.51 M/mm3 (3.60-5.2); RDW 15.8 % (11.6-15.6)
[2019-10-02 07:30] LABS: BLOOD UREA NITROGEN 58.4 mg/dL (7-18); CALCIUM 8.2 mg/dL (8.5-10.1); CREATININE 1.4 mg/dL (0.55-1.3); MAGNESIUM 2.1 mg/dL (1.8-2.4); POTASSIUM 4.4 mmol/L (3.5-5.1)
[2019-10-02] MEDS ORDERED: MEROPENEM 1 GM VIAL (RESTRICTED TO ID) IVPB ONE ×2 (07:44→20:25)
[2019-10-02] MEDS ORDERED: DEXTROSE 5%-WATER 100 ML IVPB ONE ×2 (07:44→20:25)
[2019-10-02] MEDS ORDERED: PT OWN MED DRAWER 7, Y5N ONE ×2 (07:44→09:31)
[2019-10-02] MEDS: MEROPENEM 1 GM in DEXTROSE 5%-WATER 100 ML IVPB SCH ×2 (09:14→21:08)
[2019-10-02] MEDS: ESCITALOPRAM OXALATE 10 MG TABLET (FP) PO SCH (09:14)
[2019-10-02] MEDS: FUROSEMIDE 40 MG/4 ML INJECTABLE VIAL IVPUSH SCH (09:14)
[2019-10-02] MEDS: ALLOPURINOL 300 MG TABLET (FP) PO SCH (09:14)
[2019-10-02] MEDS: ASPIRIN COATED 81 MG TABLET.EC PO SCH (09:15)
[2019-10-02] MEDS: PANTOPRAZOLE 40 MG TABLET (FP) PO SCH (09:15)
[2019-10-02] MEDS: valACYclovir HCL 500 MG TABLET (FP) PO SCH (09:34)
--- NOTE | 2019-10-02 09:37 | PN ---
Progress Note (short form) - Note Progress Note: Renal follow up for CKD/Volume overload coverage for Dr. Hameed Seen and examined in the ICU awake and alert offers no acute complaints denies any sob, cough, fever, chills, CP making urine Vital Signs Temperature 98.1 F 10/02/19 08:00 Pulse Rate 94 H 10/02/19 08:00 Respiratory Rate 18 10/02/19 08:00 Blood Pressure 108/61 10/02/19 08:00 O2 Sat by Pulse Oximetry (%) 95 10/01/19 19:55 Intake & Output 09/29/19 09/30/19 10/01/19 10/02/19 23:59 23:59 23:59 23:59 Intake Total 1060.2 1105 1386.5 370 Output Total 30 250 900 500 Balance 1030.2 855 486.5 -130 Weight 71.804 kg 70.817 kg 70.896 kg 70.896 kg NAD awake and alert RRR CTA soft NT/ND trace edema in LE CBC, BMP 10/02/19 06:00 10/02/19 06:00 Current Medications Acetaminophen (Tylenol -) 650 mg PO Q6H PRN PRN Reason: FEVER Last Admin: 09/28/19 21:23 Dose: 650 mg Allopurinol (Zyloprim -) 300 mg PO DAILY [facility] Last Admin: 10/02/19 09:14 Dose: 300 mg Aspirin (Ecotrin -) 81 mg PO DAILY [facility] Last Admin: 10/02/19 09:15 Dose: 81 mg Atorvastatin Calcium (Lipitor -) 40 mg PO HS [facility] Last Admin: 10/01/19 21:40 Dose: 40 mg Escitalopram Oxalate (Lexapro -) 10 mg PO DAILY [facility] Last Admin: 10/02/19 09:14 Dose: 10 mg Furosemide (Lasix Injection -) 40 mg IVPUSH DAILY [facility] Last Admin: 10/02/19 09:14 Dose: 40 mg Heparin Sodium (Porcine) (Heparin -) 5,000 unit SQ TID [facility] Last Admin: 10/02/19 06:12 Dose: 5,000 unit Meropenem 1 gm/ Dextrose 100 mls @ 200 mls/hr IVPB BID [facility] Last Admin: 10/02/19 09:14 Dose: 200 mls/hr Norepinephrine Bitartrate 8, (000 mcg/ Dextrose) 500 mls @ 18.75 mls/hr IV TITR [facility]; Protocol Last Titration: 10/02/19 07:35 Dose: 2 mcg/min, 7.5 mls/hr Levothyroxine Sodium (Synthroid -) 75 mcg PO DAILY@0700 [facility] Last Admin: 10/02/19 06:12 Dose: 75 mcg Pantoprazole Sodium (Protonix -) 40 mg PO DAILY [facility] Last Admin: 10/02/19 09:15 Dose: 40 mg Valacyclovir HCl (Valtrex -) 500 mg PO DAILY [facility] Last Admin: 10/02/19 09:34 Dose: 500 mg 1. proteinuria 2. multiple myeloma 3. amyloid 4. dizziness 5. hypotension 6. HLD 7. hypothyroidism 8. anemia 9. CKD 10. fluid overload 11. hypotension Plan Renal function stable continue IV Lasix for management of fluid overload, can consider BID dosing if response is not adequate check CXR in the AM continue vasopressers to maintain MAP > 65 Trend renal function and electrolytes daily Thank you Manuel Sage DO
--- NOTE | 2019-10-02 11:56 | PN ---
Progress Note, Physician History of Present Illness: stable no new issues - Current Medication List Current Medications: Active Medications Acetaminophen (Tylenol -) 650 mg PO Q6H PRN PRN Reason: FEVER Last Admin: 09/28/19 21:23 Dose: 650 mg Allopurinol (Zyloprim -) 300 mg PO DAILY [facility] Last Admin: 10/02/19 09:14 Dose: 300 mg Aspirin (Ecotrin -) 81 mg PO DAILY [facility] Last Admin: 10/02/19 09:15 Dose: 81 mg Atorvastatin Calcium (Lipitor -) 40 mg PO HS [facility] Last Admin: 10/01/19 21:40 Dose: 40 mg Escitalopram Oxalate (Lexapro -) 10 mg PO DAILY [facility] Last Admin: 10/02/19 09:14 Dose: 10 mg Furosemide (Lasix Injection -) 40 mg IVPUSH DAILY [facility] Last Admin: 10/02/19 09:14 Dose: 40 mg Heparin Sodium (Porcine) (Heparin -) 5,000 unit SQ TID [facility] Last Admin: 10/02/19 06:12 Dose: 5,000 unit Meropenem 1 gm/ Dextrose 100 mls @ 200 mls/hr IVPB BID [facility] Last Admin: 10/02/19 09:14 Dose: 200 mls/hr Norepinephrine Bitartrate 8, (000 mcg/ Dextrose) 500 mls @ 18.75 mls/hr IV TITR [facility]; Protocol Last Titration: 10/02/19 11:39 Dose: 4 mcg/min, 15 mls/hr Levothyroxine Sodium (Synthroid -) 75 mcg PO DAILY@0700 [facility] Last Admin: 10/02/19 06:12 Dose: 75 mcg Pantoprazole Sodium (Protonix -) 40 mg PO DAILY [facility] Last Admin: 10/02/19 09:15 Dose: 40 mg Valacyclovir HCl (Valtrex -) 500 mg PO DAILY [facility] Last Admin: 10/02/19 09:34 Dose: 500 mg - Objective Vital Signs: Vital Signs Temperature 98.1 F 10/02/19 08:00 Pulse Rate 97 H 10/02/19 11:39 Respiratory Rate 19 10/02/19 10:00 Blood Pressure 101/58 L 10/02/19 11:39 O2 Sat by Pulse Oximetry (%) 95 10/02/19 09:00 Constitutional: Yes: No Distress, Calm Cardiovascular: Yes: S1, S2 Respiratory: Yes: Regular, CTA Bilaterally Gastrointestinal: Yes: Normal Bowel Sounds, Soft Musculoskeletal: Yes: WNL Extremities: Yes: WNL Neurological: Yes: Alert, Oriented Psychiatric: Yes: Alert, Oriented Labs: CBC, BMP 10/02/19 06:00 10/02/19 06:00 INR, PTT INR 1.16 (0.83-1.09) H 09/20/19 04:16 Assessment/Plan Problem List - Problems (1) Anasarca Code(s): R60.1 - GENERALIZED EDEMA (2) Fluid overload Code(s): E87.70 - FLUID OVERLOAD, UNSPECIFIED (3) Hypoxia Code(s): R09.02 - HYPOXEMIA (4) Weakness Code(s): R53.1 - WEAKNESS (5) ASHD (arteriosclerotic heart disease) Code(s): I25.10 - ATHSCL HEART DISEASE OF [place] CORONARY ARTERY W/O ANG PCTRS (6) Acute exacerbation of CHF (congestive heart failure) Code(s): I50.9 - HEART FAILURE, UNSPECIFIED (7) Acute on chronic systolic CHF (congestive heart failure) Code(s): I50.23 - ACUTE ON CHRONIC SYSTOLIC (CONGESTIVE) HEART FAILURE (8) Adult onset hypothyroidism Code(s): E03.8 - OTHER SPECIFIED HYPOTHYROIDISM (9) Anemia Code(s): D64.9 - ANEMIA, UNSPECIFIED (10) CKD (chronic kidney disease) Code(s): N18.9 - CHRONIC KIDNEY DISEASE, UNSPECIFIED (11) Elevated troponin Code(s): R74.8 - ABNORMAL LEVELS OF OTHER SERUM ENZYMES (12) HLD (hyperlipidemia) Code(s): E78.5 - HYPERLIPIDEMIA, UNSPECIFIED Qualifiers: Hyperlipidemia type: unspecified Qualified Code(s): E78.5 - Hyperlipidemia , unspecified (13) HTN (hypertension) Code(s): I10 - ESSENTIAL (PRIMARY) HYPERTENSION Qualifiers: Hypertension type: unspecified Qualified Code(s): I10 - Essential (primary ) hypertension (14) History of heart artery stent Code(s): Z95.5 - PRESENCE OF CORONARY ANGIOPLASTY IMPLANT AND GRAFT (15) Multiple myeloma Code(s): C90.00 - MULTIPLE MYELOMA NOT HAVING ACHIEVED REMISSION Qualifiers: Multiple myeloma remission status: not in remission Qualified Code(s): C90.00 - Multiple myeloma not having achieved remission uti hypotension Assessment/Plan continue abx monitor for fever close monitoring rest as per icu resp support cc 40 min
--- NOTE | 2019-10-02 12:46 | PN ---
Progress Note (short form) - Note Progress Note: PULM/CCM Pt seen and examined in the ICU, remains on low dose Levo but CA+OX3, eating, states feeling much better. Active Medications Acetaminophen (Tylenol -) 650 mg PO Q6H PRN PRN Reason: FEVER Last Admin: 09/28/19 21:23 Dose: 650 mg Allopurinol (Zyloprim -) 300 mg PO DAILY [facility] Last Admin: 10/02/19 09:14 Dose: 300 mg Aspirin (Ecotrin -) 81 mg PO DAILY [facility] Last Admin: 10/02/19 09:15 Dose: 81 mg Atorvastatin Calcium (Lipitor -) 40 mg PO HS [facility] Last Admin: 10/01/19 21:40 Dose: 40 mg Escitalopram Oxalate (Lexapro -) 10 mg PO DAILY [facility] Last Admin: 10/02/19 09:14 Dose: 10 mg Furosemide (Lasix Injection -) 40 mg IVPUSH DAILY [facility] Last Admin: 10/02/19 09:14 Dose: 40 mg Heparin Sodium (Porcine) (Heparin -) 5,000 unit SQ TID [facility] Last Admin: 10/02/19 06:12 Dose: 5,000 unit Meropenem 1 gm/ Dextrose 100 mls @ 200 mls/hr IVPB BID [facility] Last Admin: 10/02/19 09:14 Dose: 200 mls/hr Norepinephrine Bitartrate 8, (000 mcg/ Dextrose) 500 mls @ 18.75 mls/hr IV TITR [facility]; Protocol Last Titration: 10/02/19 11:39 Dose: 4 mcg/min, 15 mls/hr Levothyroxine Sodium (Synthroid -) 75 mcg PO DAILY@0700 [facility] Last Admin: 10/02/19 06:12 Dose: 75 mcg Pantoprazole Sodium (Protonix -) 40 mg PO DAILY [facility] Last Admin: 10/02/19 09:15 Dose: 40 mg Valacyclovir HCl (Valtrex -) 500 mg PO DAILY [facility] Last Admin: 10/02/19 09:34 Dose: 500 mg V/S Period Temp Pulse Resp BP Sys/Moss Pulse Ox Last 24 Hr 98.1 F-99.1 F 91-104 17-28 83-114/51-64 95-95 Intake & Output 09/29/19 09/30/19 10/01/19 10/02/19 23:59 23:59 23:59 23:59 Intake Total 1060.2 1105 1386.5 530 Output Total 30 129 076 0124 Balance 1030.2 855 486.5 -570 Weight 71.804 kg 70.817 kg 70.896 kg 70.896 kg Gen: non-toxic, well appearing, no distress Heart: RRR Lung: decreased breath sounds at the bases Abd: Obese, + BS, soft, nontender Ext: 2+ dependent edema CBC, BMP 10/02/19 06:00 10/02/19 06:00 Microbiology 09/20/19 04:16 Blood - Peripheral Venous Blood Culture - Final NO GROWTH AFTER 5 DAYS INCUBATION 09/20/19 06:26 Urine - Urine Clean Catch Urine Culture - Final Strep Agalactiae Group B CXR 10/01: Single AP view the chest is been submitted. Since 09/30/2019 at 0515 hours again shows a large heart, unfolded aorta, fullness of the arie, right jugular line with tip at junction of SVC and right atrium, congestive changes with bilateral effusions and some persistent platelike atelectasis in the left mid lung field. Correlation recommended. CHEST CT 09/22: Interstitial pulmonary vascular congestion. Moderate bilateral pleural effusions are noted with resultant partial bilateral lower lobe compressive atelectasis. These findings appear unchanged in comparison to an abdomen/pelvic CT study of 09/20/2019 although new since a chest CT study of . Since the 01/16/2019 CT exam prominently increased concentric subcutaneous edema is seen along the chest and abdomen consistent with anasarca. The remainder of the exam demonstrates no definite interval change. Multichamber cardiomegaly. Very small pericardial effusion. ASSESS: Acute on Chronic Systolic Heart Failure Cardiogenic Shock Acute on Chronic Renal Failure CAD Pneumonia Asthma Multiple Myeloma HTN Hyperlipidemia Hypothyroidism Anemia PLAN: - continue daily lasix - taper levophed gtt - monitor urine output, creatinine - daily weights - antibiotics per ID - O2 to keep SpO2 >90% - inhaled bronchodilators as needed - DVT prophylaxis - continue ICU monitoring while still on pressors, attempted to come off but BP in 70s [facility] PULM/CCM [id number]
--- NOTE | 2019-10-02 13:29 | PN ---
Progress Note (short form) - Note Progress Note: Patient seen in follow up. No new complaints. No significant events overnight. States she feels much better than yesterday - denies dyspnea. Still on pressor and maintaining blood pressure. Inpatient Meds reviewed. Current Medications Acetaminophen (Tylenol -) 650 mg PO Q6H PRN PRN Reason: FEVER Last Admin: 09/28/19 21:23 Dose: 650 mg Allopurinol (Zyloprim -) 300 mg PO DAILY [facility] Last Admin: 10/02/19 09:14 Dose: 300 mg Aspirin (Ecotrin -) 81 mg PO DAILY [facility] Last Admin: 10/02/19 09:15 Dose: 81 mg Atorvastatin Calcium (Lipitor -) 40 mg PO HS [facility] Last Admin: 10/01/19 21:40 Dose: 40 mg Escitalopram Oxalate (Lexapro -) 10 mg PO DAILY [facility] Last Admin: 10/02/19 09:14 Dose: 10 mg Furosemide (Lasix Injection -) 40 mg IVPUSH DAILY [facility] Last Admin: 10/02/19 09:14 Dose: 40 mg Heparin Sodium (Porcine) (Heparin -) 5,000 unit SQ TID [facility] Last Admin: 10/02/19 06:12 Dose: 5,000 unit Meropenem 1 gm/ Dextrose 100 mls @ 200 mls/hr IVPB BID [facility] Last Admin: 10/02/19 09:14 Dose: 200 mls/hr Norepinephrine Bitartrate 8, (000 mcg/ Dextrose) 500 mls @ 18.75 mls/hr IV TITR [facility]; Protocol Last Titration: 10/02/19 11:39 Dose: 4 mcg/min, 15 mls/hr Levothyroxine Sodium (Synthroid -) 75 mcg PO DAILY@0700 [facility] Last Admin: 10/02/19 06:12 Dose: 75 mcg Pantoprazole Sodium (Protonix -) 40 mg PO DAILY [facility] Last Admin: 10/02/19 09:15 Dose: 40 mg Valacyclovir HCl (Valtrex -) 500 mg PO DAILY [facility] Last Admin: 10/02/19 09:34 Dose: 500 mg On Examination: Last Vital Signs Temp Pulse Resp BP Pulse Ox 98.1 F 97 H 28 H 98/57 L 95 10/02/19 08:00 10/02/19 12:00 10/02/19 12:00 10/02/19 12:00 10/02/19 09:00 General: In no acute distress, lying comfortably in bed. Extremities: No pallor or icterus. Bilateral mild pedal edema. No palpable lymphadenopathy. CVS: S1, S2, regular, no gallop or murmur. Chest: good air entry bilaterally, clear Abdomen: Non-distended, non-tender, no palpable organomegaly. Neuro: Alert, oriented, non-focal. Labs: CBC, BMP 10/02/19 06:00 10/02/19 06:00 Assessment. Myeloma - controlled disease - currently receiving Velcade/Dex/Cytoxan -(since June 2019) Counts stable. Lambda LC stable over past 4 months. Admitted with decompensated CHF (CAD) - recently with hypotension requiring admission to ICU for inotropic support - stable, but still not weaned off norepinephrine Continues to have very high lambda serum LC burden - consider whether element of cardiac amyloidosis.
--- NOTE | 2019-10-02 19:27 | PN ---
Progress Note, Physician - Current Medication List Current Medications: Active Medications Acetaminophen (Tylenol -) 650 mg PO Q6H PRN PRN Reason: FEVER Last Admin: 09/28/19 21:23 Dose: 650 mg Allopurinol (Zyloprim -) 300 mg PO DAILY [facility] Last Admin: 10/02/19 09:14 Dose: 300 mg Aspirin (Ecotrin -) 81 mg PO DAILY [facility] Last Admin: 10/02/19 09:15 Dose: 81 mg Atorvastatin Calcium (Lipitor -) 40 mg PO HS [facility] Last Admin: 10/01/19 21:40 Dose: 40 mg Escitalopram Oxalate (Lexapro -) 10 mg PO DAILY [facility] Last Admin: 10/02/19 09:14 Dose: 10 mg Furosemide (Lasix Injection -) 40 mg IVPUSH DAILY [facility] Last Admin: 10/02/19 09:14 Dose: 40 mg Heparin Sodium (Porcine) (Heparin -) 5,000 unit SQ TID [facility] Last Admin: 10/02/19 14:58 Dose: 5,000 unit Meropenem 1 gm/ Dextrose 100 mls @ 200 mls/hr IVPB BID [facility] Last Admin: 10/02/19 09:14 Dose: 200 mls/hr Norepinephrine Bitartrate 8, (000 mcg/ Dextrose) 500 mls @ 18.75 mls/hr IV TITR [facility]; Protocol Last Titration: 10/02/19 17:00 Dose: 5 mcg/min, 18.75 mls/hr Levothyroxine Sodium (Synthroid -) 75 mcg PO DAILY@0700 [facility] Last Admin: 10/02/19 06:12 Dose: 75 mcg Pantoprazole Sodium (Protonix -) 40 mg PO DAILY [facility] Last Admin: 10/02/19 09:15 Dose: 40 mg Valacyclovir HCl (Valtrex -) 500 mg PO DAILY [facility] Last Admin: 10/02/19 09:34 Dose: 500 mg - Objective Vital Signs: Vital Signs Temperature 98.9 F 10/02/19 16:00 Pulse Rate 113 H 10/02/19 18:00 Respiratory Rate 30 H 10/02/19 18:00 Blood Pressure 133/73 10/02/19 18:00 O2 Sat by Pulse Oximetry (%) 95 10/02/19 09:00 Neck: Yes: WNL, Supple Cardiovascular: Yes: WNL, Regular Rate and Rhythm Respiratory: Yes: Diminished Gastrointestinal: Yes: WNL, Normal Bowel Sounds, Soft Edema: LLE: 1+, RLE: 1+ Labs: CBC, BMP 10/02/19 06:00 10/02/19 06:00 INR, PTT INR 1.16 (0.83-1.09) H 09/20/19 04:16 Problem List - Problems (1) Acute on chronic systolic CHF (congestive heart failure) Assessment/Plan: Cont IV lasix Monitor electrolytes Levophed to be tapered off as tolerated BB on hold due to hypotension Code(s): I50.23 - ACUTE ON CHRONIC SYSTOLIC (CONGESTIVE) HEART FAILURE (2) UTI (urinary tract infection) Assessment/Plan: Due to strept agalactiae Cont IV meropenem BC remain negative Code(s): N39.0 - URINARY TRACT INFECTION, SITE NOT SPECIFIED (3) HTN (hypertension) Assessment/Plan: Pt remains hypotension ?Due to dehydration from diarrhea wc has now resolved Losartan on hold Cont midrodine Code(s): I10 - ESSENTIAL (PRIMARY) HYPERTENSION Qualifiers: Hypertension type: unspecified Qualified Code(s): I10 - Essential (primary ) hypertension (4) Multiple myeloma Assessment/Plan: Pt has been receiving chemotx and recently RT As per onco Code(s): C90.00 - MULTIPLE MYELOMA NOT HAVING ACHIEVED REMISSION Qualifiers: Multiple myeloma remission status: not in remission Qualified Code(s): C90.00 - Multiple myeloma not having achieved remission (5) HLD (hyperlipidemia) Assessment/Plan: Cont lipitor Code(s): E78.5 - HYPERLIPIDEMIA, UNSPECIFIED Qualifiers: Hyperlipidemia type: unspecified Qualified Code(s): E78.5 - Hyperlipidemia , unspecified (6) Hypothyroidism Assessment/Plan: Cont levothyroxine Check TSH Code(s): E03.9 - HYPOTHYROIDISM, UNSPECIFIED Qualifiers: Hypothyroidism type: acquired Qualified Code(s): E03.9 - Hypothyroidism, unspecified (7) CAD (coronary artery disease) Code(s): I25.10 - ATHSCL HEART DISEASE OF [place] CORONARY ARTERY W/O ANG PCTRS Qualifiers: (8) Depression Assessment/Plan: Cont lexapro Code(s): F32.9 - MAJOR DEPRESSIVE DISORDER, SINGLE EPISODE, UNSPECIFIED (9) History of heart artery stent Code(s): Z95.5 - PRESENCE OF CORONARY ANGIOPLASTY IMPLANT AND GRAFT (10) Elevated troponin Assessment/Plan: ?Due to demand ischemia Code(s): R74.8 - ABNORMAL LEVELS OF OTHER SERUM ENZYMES (11) Diarrhea Assessment/Plan: Now resolved Cause of dehydration/hypotension Code(s): R19.7 - DIARRHEA, UNSPECIFIED Qualifiers: Diarrhea type: unspecified type Qualified Code(s): R19.7 - Diarrhea, unspecified
--- NOTE | 2019-10-02 19:32 | PN ---
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 Attempting to wean Levophed gtt, but remains pressor-dependent. - Current Medication List Current Medications: Active Medications Acetaminophen (Tylenol -) 650 mg PO Q6H PRN PRN Reason: FEVER Last Admin: 09/28/19 21:23 Dose: 650 mg Allopurinol (Zyloprim -) 300 mg PO DAILY [facility] Last Admin: 10/02/19 09:14 Dose: 300 mg Aspirin (Ecotrin -) 81 mg PO DAILY [facility] Last Admin: 10/02/19 09:15 Dose: 81 mg Atorvastatin Calcium (Lipitor -) 40 mg PO HS [facility] Last Admin: 10/01/19 21:40 Dose: 40 mg Escitalopram Oxalate (Lexapro -) 10 mg PO DAILY [facility] Last Admin: 10/02/19 09:14 Dose: 10 mg Furosemide (Lasix Injection -) 40 mg IVPUSH DAILY [facility] Last Admin: 10/02/19 09:14 Dose: 40 mg Heparin Sodium (Porcine) (Heparin -) 5,000 unit SQ TID [facility] Last Admin: 10/02/19 14:58 Dose: 5,000 unit Meropenem 1 gm/ Dextrose 100 mls @ 200 mls/hr IVPB BID [facility] Last Admin: 10/02/19 09:14 Dose: 200 mls/hr Norepinephrine Bitartrate 8, (000 mcg/ Dextrose) 500 mls @ 18.75 mls/hr IV TITR [facility]; Protocol Last Titration: 10/02/19 17:00 Dose: 5 mcg/min, 18.75 mls/hr Levothyroxine Sodium (Synthroid -) 75 mcg PO DAILY@0700 [facility] Last Admin: 10/02/19 06:12 Dose: 75 mcg Pantoprazole Sodium (Protonix -) 40 mg PO DAILY [facility] Last Admin: 10/02/19 09:15 Dose: 40 mg Valacyclovir HCl (Valtrex -) 500 mg PO DAILY [facility] Last Admin: 10/02/19 09:34 Dose: 500 mg - Objective Vital Signs: Vital Signs Temperature 98.9 F 10/02/19 16:00 Pulse Rate 113 H 10/02/19 18:00 Respiratory Rate 30 H 10/02/19 18:00 Blood Pressure 133/73 10/02/19 18:00 O2 Sat by Pulse Oximetry (%) 95 10/02/19 09:00 Constitutional: Yes: No Distress, Calm, Thin Neck: Yes: Supple Cardiovascular: Yes: Regular Rate and Rhythm Respiratory: Yes: Regular, Diminished, On Nasal O2 Gastrointestinal: Yes: Normal Bowel Sounds, Soft Edema: Yes Edema: LLE: 1+, RLE: 1+ Labs: CBC, BMP 10/02/19 06:00 10/02/19 06:00 INR, PTT INR 1.16 (0.83-1.09) H 09/20/19 04:16 - ....Imaging EKG: Report Reviewed (Tele: ST) Assessment/Plan (1) Hypoxia Code(s): R09.02 - HYPOXEMIA (2) Weakness Code(s): R53.1 - WEAKNESS (3) ASHD (arteriosclerotic heart disease) Code(s): I25.10 - ATHSCL HEART DISEASE OF [place] CORONARY ARTERY W/O ANG PCTRS (4) Acute on chronic systolic CHF (congestive heart failure) Assessment/Plan: off losartan to raising K and bun/cr and hypotension F/u BUN/Cr, electrolytes, daily weight, Is and Os. ECHO: severely reduced LVEF; small pericardial effusion which is not hemodynamically significant; pleural effuson. Plan to re start carvedilol or metoprolol if BP and HR allow. Code(s): I50.23 - ACUTE ON CHRONIC SYSTOLIC (CONGESTIVE) HEART FAILURE (5) Adult onset hypothyroidism Assessment/Plan: elevated TSH; f/u Free T4. Code(s): E03.8 - OTHER SPECIFIED HYPOTHYROIDISM (6) Anxiety Code(s): F41.9 - ANXIETY DISORDER, UNSPECIFIED (7) Elevated troponin Code(s): R74.8 - ABNORMAL LEVELS OF OTHER SERUM ENZYMES (8) HLD (hyperlipidemia) Assessment/Plan: On statin. LDL elevated in March; f/u lipid profile. Code(s): E78.5 - HYPERLIPIDEMIA, UNSPECIFIED Qualifiers: Hyperlipidemia type: unspecified Qualified Code(s): E78.5 - Hyperlipidemia , unspecified (9) HTN (hypertension) Assessment/Plan: off losartan pending hemodynamic and renal fxn stabilization Would start beta savana if remains stable, even if BP is relatively low-normal , given severity of systolic dysfunction. 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 Acute on chronic class II NYHA classification LV systolic failure 2. CAD post MA/PCI/stent demand ischemia angina pectoris 3. HTN 4. Hyperlipidemia, not at goal 5. PNA, History of Asthma 6. History of hiatal hernia 7. Acute on CKD with proteinuria due to hemodynamic alterations improving 8. Multiple Myeloma 9. Anemia 10. 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 Continue IV Lasix with close monitoring of renal function and electrolytes, hemodyanamics permitting 2. Taper levophed gtt for MAP>65 mmHg, trial of midodrine for assistance in pressor wean, resume Coreg and Entresto once hemodyanamics and renal fxn stabilize with close monitoring of renal function and electrolytes 3. Continue ASA 81 qd, Lipitor 40 qd with caution->anemia 4. Empiric antibiotics per ID, O2 to keep SpO2 >90%, inhaled bronchodilators as needed, DVT prophylaxis
[2019-10-02] MEDS: ATORVASTATIN CA 40 MG TABLET (FP) PO SCH (21:07)
[2019-10-02] MEDS ORDERED: MIDODRINE HCL 5 MG TABLET PO ONE (21:30)
[2019-10-03] MEDS: NOREPINEPHRINE BITARTRATE 8,000 MCG in DEXTROSE 5%-WATER - 492 ML IV SCH (06:02)
[2019-10-03] MEDS: HEPARIN NA (PORCINE) 5,000 UNITS/ML 1ML VIAL SQ SCH ×3 (06:02→22:17)
[2019-10-03] MEDS: LEVOTHYROXINE NA 75 MCG TABLET (FP) PO SCH (06:02)
[2019-10-03 06:39] LABS: HEMATOCRIT 24.6 % (32.4-45.2); HEMOGLOBIN 8.3 GM/dL (10.7-15.3); MCH 32.4 pg (25.7-33.7); MCHC 33.5 g/dl (32.0-36.0); MEAN CELL VOLUME 96.7 fl (80-96); MEAN PLT VOLUME 8.8 fl (7.5-11.1); PLATELET COUNT 185 K/MM3 (134-434); RBC 2.54 M/mm3 (3.60-5.2); RDW 15.8 % (11.6-15.6); WHITE BLOOD COUNT 2.8 K/mm3 (4.0-10.0)
[2019-10-03 07:13] LABS: BLOOD UREA NITROGEN 46.3 mg/dL (7-18); CALCIUM 8.4 mg/dL (8.5-10.1); MAGNESIUM 1.9 mg/dL (1.8-2.4); PHOSPHOROUS 3.1 mg/dL (2.5-4.9); POTASSIUM 4.3 mmol/L (3.5-5.1)
--- NOTE | 2019-10-03 08:41 | PN ---
Physical Exam: SUBJECTIVE: Patient seen and examined on AM ICU rounds. CXR with worse inspiratory effort this AM, continued effusions. Patient with no complaints. States her swelling is down and breathing has improved. Good UOP, good appetite. Patient is stable but remains on 2 mcg levo. OBJECTIVE: Vital Signs Period Temp Pulse Resp BP Sys/Moss Pulse Ox Last 24 Hr 98.2 F-99.1 F 81-113 16-30 90-133/54-73 95-95 GENERAL: The patient is awake, alert, and fully oriented, in no acute distress. HEENT: NCAT, EOMI, normal morphologies. LUNGS: Crackles at bilateral lung bases, no accessory muscle use. HEART: Regular rate and rhythm, S1, S2 without murmur, rub or gallop. ABDOMEN: Soft, nontender, nondistended. EXTREMITIES: 2+ pulses, warm, well-perfused, improving edema - non pitting, bilateral ankles. NEUROLOGICAL: Cranial nerves grossly intact. Normal speech, gait not observed. SKIN: Warm, dry, no rashes observed. Laboratory Results - last 24 hr 10/03/19 10/03/19 10/03/19 06:00 06:00 06:00 WBC 2.8 L RBC 2.54 L Hgb 8.3 L Hct 24.6 L MCV 96.7 H MCH 32.4 MCHC 33.5 RDW 15.8 H Plt Count 185 MPV 8.8 Sodium 139 Potassium 4.3 Chloride 105 Carbon Dioxide 26 Anion Gap 8 BUN 46.3 H Creatinine 1.0 Est GFR (CKD-EPI)AfAm 63.82 Est GFR (CKD-EPI)NonAf 55.07 Random Glucose 90 Lactic Acid 1.1 Calcium 8.4 L Phosphorus 3.1 Magnesium 1.9 Active Medications Generic Name Dose Route Start Last Admin Trade Name Freq PRN Reason Stop Dose Admin Acetaminophen 650 mg 09/20/19 22:25 09/28/19 21:23 Tylenol - PO 650 mg Q6H PRN Administration FEVER Allopurinol 300 mg 09/21/19 10:00 10/02/19 09:14 Zyloprim - PO 300 mg DAILY [facility] Administration Aspirin 81 mg 09/25/19 10:00 10/02/19 09:15 Ecotrin - PO 81 mg DAILY [facility] Administration Atorvastatin Calcium 40 mg 09/20/19 22:00 12/01/19 21:07 Lipitor - PO 40 mg HS [facility] Administration Escitalopram Oxalate 10 mg 09/21/19 10:00 10/02/19 09:14 Lexapro - PO 10 mg DAILY [facility] Administration Furosemide 40 mg 09/21/19 10:00 10/02/19 09:14 Lasix Injection - IVPUSH 40 mg DAILY [facility] Administration Heparin Sodium (Porcine) 5,000 unit 09/29/19 14:00 10/03/19 06:02 Heparin - SQ 5,000 unit TID [facility] Administration Meropenem 1 gm/ Dextrose 100 mls @ 200 mls/hr 09/21/19 18:30 10/02/19 21:08 IVPB 200 mls/hr BID [facility] Administration Norepinephrine Bitartrate 8, 500 mls @ 18.75 mls/hr 09/27/19 22:00 10/03/19 06:03 000 mcg/ Dextrose IV 2 mcg/min TITR [facility] 7.5 mls/hr Titration Protocol 5 MCG/MIN Levothyroxine Sodium 75 mcg 09/21/19 07:00 10/03/19 06:02 Synthroid - PO 75 mcg DAILY@0700 [facility] Administration Midodrine 5 mg 10/03/19 19:34 Proamatine - PO TID-MID [facility] Pantoprazole Sodium 40 mg 09/21/19 10:00 10/02/19 09:15 Protonix - PO 40 mg DAILY [facility] Administration Valacyclovir HCl 500 mg 09/21/19 10:00 10/02/19 09:34 Valtrex - PO 500 mg DAILY [facility] Administration ASSESSMENT/PLAN: 73yo F PMH multiple myeloma (currently on treatment), amyloidosis, chronic anemia, hypertension, hyperlipidemia, hypothyroidism, GERD, admitted for UGIB, renal failure, volume overload, transferred to the ICU for hypotension refractory to IVF boluses. Progressing appropriately. RIJ (09/28), levophed 2, adequate MAPs, will taper, patient otherwise stable for floor. #Neuro - AOx3 #Respiratory - CXR: poor inspiratory effort, continued effusions - Duonebs as needed - Continue Lasix 40mg IV OD - O2 to keep SpO2 >90% #CVS - f/u CVP reading - EKG 09/27: LVH with QRS widening - Pt on levophed ggt, taper as tolerated - Patient has had baseline SBPs 90s-120s since June - Continue Aspirin 81mg - Continue Atorvastatin 40mg - Appreciated cardiology recs #Renal - BUN/Cr: 46.3/1.0 (DEBBIE resolved) - Monitor I&Os, UOP, trend Cr - Daily weights - Appreciate nephrology recs #Heme/Onc - Multiple Myeloma: Continue Lokelma, Allopurinol #ID - Urine Cx: Strep Agalactiae - Meropenem, Valtrex - Monitor for fever / leukocytosis - Appreciate ID recs #Endo - Hx of hypothyroidism: Continue levothyroxine #FEN - Na controlled diet #Prophylaxis - SCDs #Dispo - Continued ICU monitoring Visit type - Emergency Visit Emergency Visit: Yes ED Registration Date: 09/20/19 Care time: The patient presented to the Emergency Department on the above date and was hospitalized for further evaluation of their emergent condition. - New Patient This patient is new to me today: No - Critical Care Critical Care patient: Yes Total Critical Care Time (in minutes): 36 Critical Care Statement: The care of this patient involved high complexity decision making to prevent further life threatening deterioration of the patient 's condition and/or to evaluate & treat vital organ system(s) failure or risk of failure. ATTENDING PHYSICIAN STATEMENT I saw and evaluated the patient. I reviewed the resident's note and discussed the case with the resident. I agree with the resident's findings and plan as documented. SUBJECTIVE: OBJECTIVE: ASSESSMENT AND PLAN:
[2019-10-03] MEDS ORDERED: DEXTROSE 5%-WATER 100 ML IVPB ONE (09:46)
[2019-10-03] MEDS ORDERED: MEROPENEM 1 GM VIAL (RESTRICTED TO ID) IVPB ONE (09:46)
[2019-10-03] MEDS ORDERED: PT OWN MED DRAWER 7, Y5N ONE (09:47)
[2019-10-03] MEDS: FUROSEMIDE 40 MG/4 ML INJECTABLE VIAL IVPUSH SCH (09:48)
[2019-10-03] MEDS: MEROPENEM 1 GM in DEXTROSE 5%-WATER 100 ML IVPB SCH (09:48)
[2019-10-03] MEDS: PANTOPRAZOLE 40 MG TABLET (FP) PO SCH (09:49)
[2019-10-03] MEDS: ALLOPURINOL 300 MG TABLET (FP) PO SCH (09:49)
[2019-10-03] MEDS: ASPIRIN COATED 81 MG TABLET.EC PO SCH (09:49)
[2019-10-03] MEDS: ESCITALOPRAM OXALATE 10 MG TABLET (FP) PO SCH (09:49)
[2019-10-03] MEDS: valACYclovir HCL 500 MG TABLET (FP) PO SCH (09:49)
--- NOTE | 2019-10-03 12:24 | PN ---
Teaching Attending Note Name of Resident: Fernando Moeller ATTENDING PHYSICIAN STATEMENT I saw and evaluated the patient. I reviewed the resident's note and discussed the case with the resident. I agree with the resident's findings and plan as documented. SUBJECTIVE: Patient seen and examined in the ICU. Awake and alert. Denies CP or SOB. Remains on NE for hemodynamic support. Intake & Output 09/30/19 10/01/19 10/02/19 10/03/19 23:59 23:59 23:59 23:59 Intake Total 1105 1386.5 1121 382 Output Total 126 057 0848 Balance 855 486.5 -279 382 Weight 156 lb 2 oz 156 lb 4.8 oz 156 lb 4.8 oz 159 lb Last Vital Signs Temp Pulse Resp BP Pulse Ox 98.2 F 92 H 16 105/59 L 95 10/03/19 08:00 10/03/19 10:15 10/03/19 09:00 10/03/19 10:15 10/03/19 09:00 Active Medications Acetaminophen (Tylenol -) 650 mg PO Q6H PRN PRN Reason: FEVER Last Admin: 09/28/19 21:23 Dose: 650 mg Allopurinol (Zyloprim -) 300 mg PO DAILY [facility] Last Admin: 10/03/19 09:49 Dose: 300 mg Aspirin (Ecotrin -) 81 mg PO DAILY [facility] Last Admin: 10/03/19 09:49 Dose: 81 mg Atorvastatin Calcium (Lipitor -) 40 mg PO HS [facility] Last Admin: 10/02/19 21:07 Dose: 40 mg Escitalopram Oxalate (Lexapro -) 10 mg PO DAILY [facility] Last Admin: 10/03/19 09:49 Dose: 10 mg Furosemide (Lasix Injection -) 40 mg IVPUSH DAILY [facility] Last Admin: 10/03/19 09:48 Dose: 40 mg Heparin Sodium (Porcine) (Heparin -) 5,000 unit SQ TID [facility] Last Admin: 10/03/19 06:02 Dose: 5,000 unit Meropenem 1 gm/ Dextrose 100 mls @ 200 mls/hr IVPB BID [facility] Last Admin: 10/03/19 09:48 Dose: 200 mls/hr Norepinephrine Bitartrate 8, (000 mcg/ Dextrose) 500 mls @ 18.75 mls/hr IV TITR [facility]; Protocol Last Titration: 10/03/19 10:15 Dose: 5 mcg/min, 18.75 mls/hr Levothyroxine Sodium (Synthroid -) 75 mcg PO DAILY@0700 [facility] Last Admin: 10/03/19 06:02 Dose: 75 mcg Midodrine (Proamatine -) 5 mg PO TID-MID [facility] Pantoprazole Sodium (Protonix -) 40 mg PO DAILY [facility] Last Admin: 10/03/19 09:49 Dose: 40 mg Valacyclovir HCl (Valtrex -) 500 mg PO DAILY [facility] Last Admin: 10/03/19 09:49 Dose: 500 mg Gen: Awake and alert, NAD Heart: RRR Lung: Bibasilar fine rales Abd: Obese, + BS, soft, nontender Ext: 2+ dependent edema Laboratory Results - last 24 hr 10/03/19 10/03/19 10/03/19 06:00 06:00 06:00 WBC 2.8 L RBC 2.54 L Hgb 8.3 L Hct 24.6 L MCV 96.7 H MCH 32.4 MCHC 33.5 RDW 15.8 H Plt Count 185 MPV 8.8 Sodium 139 Potassium 4.3 Chloride 105 Carbon Dioxide 26 Anion Gap 8 BUN 46.3 H Creatinine 1.0 Est GFR (CKD-EPI)AfAm 63.82 Est GFR (CKD-EPI)NonAf 55.07 Random Glucose 90 Lactic Acid 1.1 Calcium 8.4 L Phosphorus 3.1 Magnesium 1.9 ASSESS: Acute on Chronic Systolic Heart Failure Cardiogenic Shock Acute on Chronic Renal Failure CAD Pneumonia Asthma Multiple Myeloma HTN Hyperlipidemia Hypothyroidism Anemia PLAN: - taper levophed drip as tolerated - monitor urine output, creatinine - daily weights - antibiotics per ID - O2 to keep SpO2 >90% - inhaled bronchodilators as needed - DVT prophylaxis - (?) Need for Inotropes - continue ICU monitoring while still on pressors Dr Bacon Critical care time spent in reviewing chart, evaluating patient and formulating plan - 36 minutes.
--- NOTE | 2019-10-03 13:04 | PN ---
Progress Note, Physician History of Present Illness: improving says she is feeling better still on low pressors - Current Medication List Current Medications: Active Medications Acetaminophen (Tylenol -) 650 mg PO Q6H PRN PRN Reason: FEVER Last Admin: 09/28/19 21:23 Dose: 650 mg Allopurinol (Zyloprim -) 300 mg PO DAILY [facility] Last Admin: 10/03/19 09:49 Dose: 300 mg Aspirin (Ecotrin -) 81 mg PO DAILY [facility] Last Admin: 10/03/19 09:49 Dose: 81 mg Atorvastatin Calcium (Lipitor -) 40 mg PO HS [facility] Last Admin: 10/02/19 21:07 Dose: 40 mg Escitalopram Oxalate (Lexapro -) 10 mg PO DAILY [facility] Last Admin: 10/03/19 09:49 Dose: 10 mg Furosemide (Lasix Injection -) 40 mg IVPUSH DAILY [facility] Last Admin: 10/03/19 09:48 Dose: 40 mg Heparin Sodium (Porcine) (Heparin -) 5,000 unit SQ TID [facility] Last Admin: 10/03/19 06:02 Dose: 5,000 unit Norepinephrine Bitartrate 8, (000 mcg/ Dextrose) 500 mls @ 18.75 mls/hr IV TITR [facility]; Protocol Last Titration: 10/03/19 10:15 Dose: 5 mcg/min, 18.75 mls/hr Levothyroxine Sodium (Synthroid -) 75 mcg PO DAILY@0700 [facility] Last Admin: 10/03/19 06:02 Dose: 75 mcg Midodrine (Proamatine -) 5 mg PO TID-MID [facility] Pantoprazole Sodium (Protonix -) 40 mg PO DAILY [facility] Last Admin: 10/03/19 09:49 Dose: 40 mg Valacyclovir HCl (Valtrex -) 500 mg PO DAILY [facility] Last Admin: 10/03/19 09:49 Dose: 500 mg - Objective Vital Signs: Vital Signs Temperature 98.2 F 10/03/19 08:00 Pulse Rate 92 H 10/03/19 12:00 Respiratory Rate 19 10/03/19 12:00 Blood Pressure 86/60 L 10/03/19 12:00 O2 Sat by Pulse Oximetry (%) 95 10/03/19 09:00 Constitutional: Yes: No Distress, Calm Cardiovascular: Yes: S1, S2 Respiratory: Yes: Regular, On Nasal O2, Poor Air Entry Gastrointestinal: Yes: Normal Bowel Sounds, Soft Musculoskeletal: Yes: WNL Extremities: Yes: WNL Neurological: Yes: Alert, Oriented Labs: CBC, BMP 10/03/19 06:00 10/03/19 06:00 INR, PTT INR 1.16 (0.83-1.09) H 09/20/19 04:16 - ....Imaging Chest X-ray: Report Reviewed, Image Reviewed Assessment/Plan Problem List - Problems (1) Anasarca Code(s): R60.1 - GENERALIZED EDEMA (2) Fluid overload Code(s): E87.70 - FLUID OVERLOAD, UNSPECIFIED (3) Hypoxia Code(s): R09.02 - HYPOXEMIA (4) Weakness Code(s): R53.1 - WEAKNESS (5) ASHD (arteriosclerotic heart disease) Code(s): I25.10 - ATHSCL HEART DISEASE OF [place] CORONARY ARTERY W/O ANG PCTRS (6) Acute exacerbation of CHF (congestive heart failure) Code(s): I50.9 - HEART FAILURE, UNSPECIFIED (7) Acute on chronic systolic CHF (congestive heart failure) Code(s): I50.23 - ACUTE ON CHRONIC SYSTOLIC (CONGESTIVE) HEART FAILURE (8) Adult onset hypothyroidism Code(s): E03.8 - OTHER SPECIFIED HYPOTHYROIDISM (9) Anemia Code(s): D64.9 - ANEMIA, UNSPECIFIED (10) CKD (chronic kidney disease) Code(s): N18.9 - CHRONIC KIDNEY DISEASE, UNSPECIFIED (11) Elevated troponin Code(s): R74.8 - ABNORMAL LEVELS OF OTHER SERUM ENZYMES (12) HLD (hyperlipidemia) Code(s): E78.5 - HYPERLIPIDEMIA, UNSPECIFIED Qualifiers: Hyperlipidemia type: unspecified Qualified Code(s): E78.5 - Hyperlipidemia , unspecified (13) HTN (hypertension) Code(s): I10 - ESSENTIAL (PRIMARY) HYPERTENSION Qualifiers: Hypertension type: unspecified Qualified Code(s): I10 - Essential (primary ) hypertension (14) History of heart artery stent Code(s): Z95.5 - PRESENCE OF CORONARY ANGIOPLASTY IMPLANT AND GRAFT (15) Multiple myeloma Code(s): C90.00 - MULTIPLE MYELOMA NOT HAVING ACHIEVED REMISSION Qualifiers: Multiple myeloma remission status: not in remission Qualified Code(s): C90.00 - Multiple myeloma not having achieved remission uti hypotension Assessment/Plan continue abx wean as tolerated close monitoring rest as per icu resp support cc 40 min
--- NOTE | 2019-10-03 14:29 | PN ---
Progress Note, Physician History of Present Illness: Pt seen and examined at bedside. She is awake and alert. She feels that her breathing is improving. - Current Medication List Current Medications: Active Medications Acetaminophen (Tylenol -) 650 mg PO Q6H PRN PRN Reason: FEVER Last Admin: 09/28/19 21:23 Dose: 650 mg Allopurinol (Zyloprim -) 300 mg PO DAILY [facility] Last Admin: 10/03/19 09:49 Dose: 300 mg Aspirin (Ecotrin -) 81 mg PO DAILY [facility] Last Admin: 10/03/19 09:49 Dose: 81 mg Atorvastatin Calcium (Lipitor -) 40 mg PO HS [facility] Last Admin: 10/02/19 21:07 Dose: 40 mg Escitalopram Oxalate (Lexapro -) 10 mg PO DAILY [facility] Last Admin: 10/03/19 09:49 Dose: 10 mg Furosemide (Lasix Injection -) 40 mg IVPUSH DAILY [facility] Last Admin: 10/03/19 09:48 Dose: 40 mg Heparin Sodium (Porcine) (Heparin -) 5,000 unit SQ TID [facility] Last Admin: 10/03/19 06:02 Dose: 5,000 unit Norepinephrine Bitartrate 8, (000 mcg/ Dextrose) 500 mls @ 18.75 mls/hr IV TITR [facility]; Protocol Last Titration: 10/03/19 10:15 Dose: 5 mcg/min, 18.75 mls/hr Levothyroxine Sodium (Synthroid -) 75 mcg PO DAILY@0700 [facility] Last Admin: 10/03/19 06:02 Dose: 75 mcg Midodrine (Proamatine -) 5 mg PO TID-MID [facility] Pantoprazole Sodium (Protonix -) 40 mg PO DAILY [facility] Last Admin: 10/03/19 09:49 Dose: 40 mg Valacyclovir HCl (Valtrex -) 500 mg PO DAILY [facility] Last Admin: 10/03/19 09:49 Dose: 500 mg - Objective Vital Signs: Vital Signs Temperature 98.2 F 10/03/19 08:00 Pulse Rate 92 H 10/03/19 12:00 Respiratory Rate 19 10/03/19 12:00 Blood Pressure 86/60 L 10/03/19 12:00 O2 Sat by Pulse Oximetry (%) 95 10/03/19 09:00 Constitutional: Yes: Calm Eyes: Yes: Conjunctiva Clear HENT: Yes: Atraumatic Neck: Yes: Supple Cardiovascular: Yes: S1, S2 Respiratory: Yes: On Nasal O2 Gastrointestinal: Yes: Soft Genitourinary: Yes: WNL Musculoskeletal: Yes: WNL Edema: No Neurological: Yes: Oriented Psychiatric: Yes: Oriented Labs: CBC, BMP 10/03/19 06:00 10/03/19 06:00 INR, PTT INR 1.16 (0.83-1.09) H 09/20/19 04:16 Assessment/Plan Current Medications Generic Name Dose Route Start Last Admin Trade Name Freq PRN Reason Stop Dose Admin Acetaminophen 650 mg 09/20/19 22:25 09/28/19 21:23 Tylenol - PO 650 mg Q6H PRN Administration FEVER Allopurinol 300 mg 09/21/19 10:00 10/03/19 09:49 Zyloprim - PO 300 mg DAILY [facility] Administration Aspirin 81 mg 09/25/19 10:00 10/03/19 09:49 Ecotrin - PO 81 mg DAILY [facility] Administration Atorvastatin Calcium 40 mg 09/20/19 22:00 10/02/19 21:07 Lipitor - PO 40 mg HS [facility] Administration Escitalopram Oxalate 10 mg 09/21/19 10:00 10/03/19 09:49 Lexapro - PO 10 mg DAILY [facility] Administration Furosemide 40 mg 09/21/19 10:00 10/03/19 09:48 Lasix Injection - IVPUSH 40 mg DAILY [facility] Administration Heparin Sodium (Porcine) 5,000 unit 09/29/19 14:00 10/03/19 06:02 Heparin - SQ 5,000 unit TID [facility] Administration Norepinephrine Bitartrate 8, 500 mls @ 18.75 mls/hr 09/27/19 22:00 10/03/19 10:15 000 mcg/ Dextrose IV 5 mcg/min TITR [facility] 18.75 mls/hr Titration Protocol 5 MCG/MIN Levothyroxine Sodium 75 mcg 09/21/19 07:00 10/03/19 06:02 Synthroid - PO 75 mcg DAILY@0700 [facility] Administration Midodrine 5 mg 10/03/19 19:34 Proamatine - PO TID-MID [facility] Pantoprazole Sodium 40 mg 09/21/19 10:00 10/03/19 09:49 Protonix - PO 40 mg DAILY [facility] Administration Valacyclovir HCl 500 mg 09/21/19 10:00 10/03/19 09:49 Valtrex - PO 500 mg DAILY [facility] Administration Impression 1. proteinuria 2. multiple myeloma 3. amyloid 4. dizziness 5. hypotension 6. HLD 7. hypothyroidism 8. anemia 9. CKD 10. fluid overload 11. hypotension Plan - renal function improved - cont lasix - potassium stable - monitor labs daily - volume status improved - taper pressors - monitor bp
[2019-10-03] MEDS ORDERED: NOREPINEPHRINE BITARTRATE 4 MG/4 ML ML IV ONE (15:03)
--- NOTE | 2019-10-03 16:18 | PN ---
Progress Note, Physician History of Present Illness: 74 year old black female with PMH HTN, HLD, CAD s/p coronary artery stenting, GERD, multiple myeloma (chemo; radiation directed at abdomen), ? "mild" systolic CHF, on Lasix, rectal hemorrhoids, now presented to ED for diarrhea x2 days associated with generalized weakness, ROGERS. Pt reported she has had loose, watery diarrhea x2 days, and prior to that he had rectal bleeding x2 days (on toilet paper and mixed in stool) that self resolved. She reported she only noticed the bleeding because it was on the toilet paper, as she did not have abdominal or rectal pain. Pt reported generalized weakness and ROGERS, which prompted her to come to the ED. Pt denied nausea, vomiting, fever, abdominal pain, chest pain, increased LE swelling. She reported she believed her lower extremity swelling is actually improving. She also reported noticing a new "rash " to her right hip since last week. - Current Medication List Current Medications: Active Medications Acetaminophen (Tylenol -) 650 mg PO Q6H PRN PRN Reason: FEVER Last Admin: 09/28/19 21:23 Dose: 650 mg Allopurinol (Zyloprim -) 300 mg PO DAILY [facility] Last Admin: 10/03/19 09:49 Dose: 300 mg Aspirin (Ecotrin -) 81 mg PO DAILY [facility] Last Admin: 10/03/19 09:49 Dose: 81 mg Atorvastatin Calcium (Lipitor -) 40 mg PO HS [facility] Last Admin: 10/02/19 21:07 Dose: 40 mg Escitalopram Oxalate (Lexapro -) 10 mg PO DAILY [facility] Last Admin: 10/03/19 09:49 Dose: 10 mg Furosemide (Lasix Injection -) 40 mg IVPUSH DAILY [facility] Last Admin: 10/03/19 09:48 Dose: 40 mg Heparin Sodium (Porcine) (Heparin -) 5,000 unit SQ TID [facility] Last Admin: 10/03/19 15:11 Dose: 5,000 unit Norepinephrine Bitartrate 8, (000 mcg/ Dextrose) 500 mls @ 18.75 mls/hr IV TITR [facility]; Protocol Last Titration: 10/03/19 10:15 Dose: 5 mcg/min, 18.75 mls/hr Levothyroxine Sodium (Synthroid -) 75 mcg PO DAILY@0700 [facility] Last Admin: 12/02/19 06:02 Dose: 75 mcg Midodrine (Proamatine -) 5 mg PO TID-MID [facility] Pantoprazole Sodium (Protonix -) 40 mg PO DAILY [facility] Last Admin: 10/03/19 09:49 Dose: 40 mg Valacyclovir HCl (Valtrex -) 500 mg PO DAILY [facility] Last Admin: 10/03/19 09:49 Dose: 500 mg - Objective Vital Signs: Vital Signs Temperature 98.2 F 10/03/19 08:00 Pulse Rate 96 H 10/03/19 16:00 Respiratory Rate 17 10/03/19 16:00 Blood Pressure 101/59 L 10/03/19 16:00 O2 Sat by Pulse Oximetry (%) 95 10/03/19 09:00 Eyes: Yes: WNL, Conjunctiva Clear, EOM Intact HENT: Yes: WNL, Atraumatic, Normocephalic Neck: Yes: WNL, Supple, Trachea Midline Cardiovascular: Yes: WNL, Regular Rate and Rhythm Respiratory: Yes: WNL, Regular, CTA Bilaterally Gastrointestinal: Yes: WNL, Normal Bowel Sounds Genitourinary: Yes: WNL Musculoskeletal: Yes: WNL Extremities: Yes: WNL Edema: No Integumentary: Yes: WNL Neurological: Yes: WNL, Alert, Oriented ...Motor Strength: WNL Psychiatric: Yes: WNL Labs: CBC, BMP 10/03/19 06:00 10/03/19 06:00 INR, PTT INR 1.16 (0.83-1.09) H 09/20/19 04:16 Assessment/Plan 1. Acute on chronic class II NYHA classification LV systolic failure 2. CAD post PR/PCI/stent demand ischemia angina pectoris 3. HTN 4. Hyperlipidemia, not at goal 5. PNA, History of Asthma 6. History of hiatal hernia 7. Acute on CKD with proteinuria due to hemodynamic alterations improving 8. Multiple Myeloma 9. Anemia 10. 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 Continue IV Lasix with close monitoring of renal function and electrolytes, hemodyanamics permitting 2. Tapered levophed gtt trial of midodrine for assistance in pressor wean, resume Coreg and Entresto once hemodyanamics and renal fxn stabilize with close monitoring of renal function and electrolytes 3. Continue ASA 81 qd, Lipitor 40 qd with caution->anemia 4. Empiric antibiotics per ID, O2 to keep SpO2 >90%, inhaled bronchodilators as needed, DVT prophylaxis. cc time spent 36 min
[2019-10-03] MEDS: MIDODRINE HCL 5 MG TABLET PO SCH (22:16)
[2019-10-03] MEDS: ATORVASTATIN CA 40 MG TABLET (FP) PO SCH (22:16)
--- NOTE | 2019-10-03 22:35 | PN ---
Progress Note, Physician History of Present Illness: No new complaints - Current Medication List Current Medications: Active Medications Acetaminophen (Tylenol -) 650 mg PO Q6H PRN PRN Reason: FEVER Last Admin: 09/28/19 21:23 Dose: 650 mg Allopurinol (Zyloprim -) 300 mg PO DAILY [facility] Last Admin: 10/03/19 09:49 Dose: 300 mg Aspirin (Ecotrin -) 81 mg PO DAILY [facility] Last Admin: 10/03/19 09:49 Dose: 81 mg Atorvastatin Calcium (Lipitor -) 40 mg PO HS [facility] Last Admin: 10/03/19 22:16 Dose: 40 mg Escitalopram Oxalate (Lexapro -) 10 mg PO DAILY [facility] Last Admin: 10/03/19 09:49 Dose: 10 mg Furosemide (Lasix Injection -) 40 mg IVPUSH DAILY [facility] Last Admin: 10/03/19 09:48 Dose: 40 mg Heparin Sodium (Porcine) (Heparin -) 5,000 unit SQ TID [facility] Last Admin: 10/03/19 22:17 Dose: 5,000 unit Norepinephrine Bitartrate 8, (000 mcg/ Dextrose) 500 mls @ 18.75 mls/hr IV TITR [facility]; Protocol Last Titration: 10/03/19 10:15 Dose: 5 mcg/min, 18.75 mls/hr Levothyroxine Sodium (Synthroid -) 75 mcg PO DAILY@0700 [facility] Last Admin: 10/03/19 06:02 Dose: 75 mcg Midodrine (Proamatine -) 5 mg PO TID-MID [facility] Last Admin: 10/03/19 22:16 Dose: 5 mg Pantoprazole Sodium (Protonix -) 40 mg PO DAILY [facility] Last Admin: 10/03/19 09:49 Dose: 40 mg Valacyclovir HCl (Valtrex -) 500 mg PO DAILY [facility] Last Admin: 10/03/19 09:49 Dose: 500 mg - Objective Vital Signs: Vital Signs Temperature 98.7 F 10/03/19 18:30 Pulse Rate 104 H 10/03/19 20:00 Respiratory Rate 44 H 10/03/19 20:20 Blood Pressure 111/64 10/03/19 20:00 O2 Sat by Pulse Oximetry (%) 96 10/03/19 20:20 Cardiovascular: Yes: WNL, Regular Rate and Rhythm Respiratory: Yes: WNL, Regular, CTA Bilaterally Gastrointestinal: Yes: WNL, Normal Bowel Sounds, Soft Labs: CBC, BMP 10/03/19 06:00 10/03/19 06:00 INR, PTT INR 1.16 (0.83-1.09) H 09/20/19 04:16 Problem List - Problems (1) Acute on chronic systolic CHF (congestive heart failure) Assessment/Plan: Cont IV lasix Monitor electrolytes Levophed to be tapered off as tolerated BB on hold due to hypotension Code(s): I50.23 - ACUTE ON CHRONIC SYSTOLIC (CONGESTIVE) HEART FAILURE (2) UTI (urinary tract infection) Assessment/Plan: Due to strept agalactiae Cont IV meropenem BC remain negative Code(s): N39.0 - URINARY TRACT INFECTION, SITE NOT SPECIFIED (3) HTN (hypertension) Assessment/Plan: Pt remains hypotension ?Due to dehydration from diarrhea wc has now resolved Losartan on hold Cont midrodine Code(s): I10 - ESSENTIAL (PRIMARY) HYPERTENSION Qualifiers: Hypertension type: unspecified Qualified Code(s): I10 - Essential (primary ) hypertension (4) Multiple myeloma Assessment/Plan: Pt has been receiving chemotx and recently RT As per onco Code(s): C90.00 - MULTIPLE MYELOMA NOT HAVING ACHIEVED REMISSION Qualifiers: Multiple myeloma remission status: not in remission Qualified Code(s): C90.00 - Multiple myeloma not having achieved remission (5) HLD (hyperlipidemia) Assessment/Plan: Cont lipitor Code(s): E78.5 - HYPERLIPIDEMIA, UNSPECIFIED Qualifiers: Hyperlipidemia type: unspecified Qualified Code(s): E78.5 - Hyperlipidemia , unspecified (6) Hypothyroidism Assessment/Plan: Cont levothyroxine Check TSH Code(s): E03.9 - HYPOTHYROIDISM, UNSPECIFIED Qualifiers: Hypothyroidism type: acquired Qualified Code(s): E03.9 - Hypothyroidism, unspecified (7) CAD (coronary artery disease) Code(s): I25.10 - ATHSCL HEART DISEASE OF [place] CORONARY ARTERY W/O ANG PCTRS Qualifiers: (8) Depression Assessment/Plan: Cont lexapro Code(s): F32.9 - MAJOR DEPRESSIVE DISORDER, SINGLE EPISODE, UNSPECIFIED (9) History of heart artery stent Code(s): Z95.5 - PRESENCE OF CORONARY ANGIOPLASTY IMPLANT AND GRAFT (10) Elevated troponin Assessment/Plan: ?Due to demand ischemia Code(s): R74.8 - ABNORMAL LEVELS OF OTHER SERUM ENZYMES (11) Diarrhea Assessment/Plan: Now resolved Cause of dehydration/hypotension Code(s): R19.7 - [place]ARRHE[place], UNSPECIFIED Qualifiers: Diarrhea type: unspecified type Qualified Code(s): R19.7 - Diarrhea, unspecified
[2019-10-04] MEDS: NOREPINEPHRINE BITARTRATE 8,000 MCG in DEXTROSE 5%-WATER - 492 ML IV SCH ×2 (02:00→21:27)
--- NOTE | 2019-10-04 05:19 | PN ---
Progress Note (short form) - Note Progress Note: Patient seen and examiend Shortness of breath improved still on low dose levophed renal function improved AFVSS Cor: RSR, No murmurs, No gallops Lungs: decreased at bases Abd: Soft, Normal bowel sounds, No organomegaly Ext:No significant edema Abnormal Lab Results 10/03/19 10/03/19 06:00 06:00 WBC 2.8 L RBC 2.54 L Hgb 8.3 L Hct 24.6 L MCV 96.7 H RDW 15.8 H BUN 46.3 H Calcium 8.4 L Active Medications Generic Name Dose Route Start Last Admin Trade Name Freq PRN Reason Stop Dose Admin Acetaminophen 650 mg 09/20/19 22:25 09/28/19 21:23 Tylenol - PO 650 mg Q6H PRN Administration FEVER Allopurinol 300 mg 09/21/19 10:00 10/03/19 09:49 Zyloprim - PO 300 mg DAILY [facility] Administration Aspirin 81 mg 09/25/19 10:00 10/03/19 09:49 Ecotrin - PO 81 mg DAILY [facility] Administration Atorvastatin Calcium 40 mg 09/20/19 22:00 10/03/19 22:16 Lipitor - PO 40 mg HS [facility] Administration Escitalopram Oxalate 10 mg 09/21/19 10:00 10/03/19 09:49 Lexapro - PO 10 mg DAILY [facility] Administration Furosemide 40 mg 09/21/19 10:00 10/03/19 09:48 Lasix Injection - IVPUSH 40 mg DAILY [facility] Administration Heparin Sodium (Porcine) 5,000 unit 09/29/19 14:00 10/03/19 22:17 Heparin - SQ 5,000 unit TID [facility] Administration Norepinephrine Bitartrate 8, 500 mls @ 18.75 mls/hr 09/27/19 22:00 10/03/19 10:15 000 mcg/ Dextrose IV 5 mcg/min TITR [facility] 18.75 mls/hr Titration Protocol 5 MCG/MIN Levothyroxine Sodium 75 mcg 09/21/19 07:00 10/03/19 06:02 Synthroid - PO 75 mcg DAILY@0700 [facility] Administration Midodrine 5 mg 10/03/19 19:34 10/03/19 22:16 Proamatine - PO 5 mg TID-MID [facility] Administration Pantoprazole Sodium 40 mg 09/21/19 10:00 10/03/19 09:49 Protonix - PO 40 mg DAILY [facility] Administration Valacyclovir HCl 500 mg 09/21/19 10:00 10/03/19 09:49 Valtrex - PO 500 mg DAILY [facility] Administration A/P Multiple Myeloma Amyloid CHF Anemia Fever LLL atelectasis vs infiltrate UTI last dose of meropenem On lasix tapering levophed trial of midodrine creatinine improved monitoring cbc/cmp
[2019-10-04 06:22] LABS: BASO % 1.7 % (0-2.0); EOS % 0.7 % (0-4.5); HEMATOCRIT 25.3 % (32.4-45.2); HEMOGLOBIN 8.4 GM/dL (10.7-15.3); LYMPH % 29.5 % (8-40); MCH 32.5 pg (25.7-33.7); MCHC 33.3 g/dl (32.0-36.0); MEAN CELL VOLUME 97.4 fl (80-96); MONO % 8.9 % (3.8-10.2); NEUT % 59.2 % (42.8-82.8); PLATELET COUNT 202 K/MM3 (134-434); RDW 15.4 % (11.6-15.6); WHITE BLOOD COUNT 2.8 K/mm3 (4.0-10.0)
[2019-10-04] MEDS: HEPARIN NA (PORCINE) 5,000 UNITS/ML 1ML VIAL SQ SCH ×3 (06:30→21:20)
[2019-10-04] MEDS: LEVOTHYROXINE NA 75 MCG TABLET (FP) PO SCH (06:30)
[2019-10-04 06:47] LABS: ALBUMIN 0.9 g/dl (3.4-5.0); BILIRUBIN,TOTAL 0.2 mg/dL (0.2-1); BLOOD UREA NITROGEN 39.8 mg/dL (7-18); CALCIUM 8.6 mg/dL (8.5-10.1); CREATININE 0.8 mg/dL (0.55-1.3); MAGNESIUM 1.9 mg/dL (1.8-2.4); PHOSPHOROUS 2.8 mg/dL (2.5-4.9); POTASSIUM 4.3 mmol/L (3.5-5.1); TOT PROT 6.2 g/dl (6.4-8.2)
[2019-10-04] MEDS ORDERED: PT OWN MED DRAWER 7, Y5N ONE (10:06)
[2019-10-04] MEDS: ESCITALOPRAM OXALATE 10 MG TABLET (FP) PO SCH (10:12)
[2019-10-04] MEDS: ASPIRIN COATED 81 MG TABLET.EC PO SCH (10:12)
[2019-10-04] MEDS: ALLOPURINOL 300 MG TABLET (FP) PO SCH (10:12)
[2019-10-04] MEDS: valACYclovir HCL 500 MG TABLET (FP) PO SCH (10:12)
[2019-10-04] MEDS: FUROSEMIDE 40 MG/4 ML INJECTABLE VIAL IVPUSH SCH (10:12)
[2019-10-04] MEDS: PANTOPRAZOLE 40 MG TABLET (FP) PO SCH (10:12)
[2019-10-04] MEDS: MIDODRINE HCL 5 MG TABLET PO SCH ×3 (10:12→18:00)
--- NOTE | 2019-10-04 11:24 | PN ---
Physical Exam: SUBJECTIVE: Patient seen and examined at bedside. No complaints. Feeling better. OBJECTIVE: Vital Signs Period Temp Pulse Resp BP Sys/Moss Pulse Ox Last 24 Hr 98.2 F-98.7 F 92-110 17-44 86-132/53-71 96 Gen: AAOx3, NAD HEENT: NCAT, EOMI Neck: R IJ in place Cardio: rrr, normal s1s2, no mrg noted Pulm: bibasilar crackles, decreased breath sounds Abd: soft, nontender, nondistended Ext: 2+ edema b/l Laboratory Results - last 24 hr 10/04/19 10/04/19 05:20 05:20 WBC 2.8 L RBC 2.60 L Hgb 8.4 L Hct 25.3 L MCV 97.4 H MCH 32.5 MCHC 33.3 RDW 15.4 Plt Count 202 MPV 9.0 Absolute Neuts (auto) 1.6 Neutrophils % 59.2 Lymphocytes % 29.5 D Monocytes % 8.9 Eosinophils % 0.7 Basophils % 1.7 Nucleated RBC % 0 Sodium 139 Potassium 4.3 Chloride 105 Carbon Dioxide 26 Anion Gap 8 BUN 39.8 H Creatinine 0.8 Est GFR (CKD-EPI)AfAm 83.59 Est GFR (CKD-EPI)NonAf 72.12 Random Glucose 93 Calcium 8.6 Phosphorus 2.8 Magnesium 1.9 Total Bilirubin 0.2 AST 34 ALT 29 Alkaline Phosphatase 55 Total Protein 6.2 L Albumin 0.9 L Active Medications Generic Name Dose Route Start Last Admin Trade Name Freq PRN Reason Stop Dose Admin Acetaminophen 650 mg 09/20/19 22:25 09/28/19 21:23 Tylenol - PO 650 mg Q6H PRN Administration FEVER Allopurinol 300 mg 09/21/19 10:00 10/04/19 10:12 Zyloprim - PO 300 mg DAILY [facility] Administration Aspirin 81 mg 09/25/19 10:00 10/04/19 10:12 Ecotrin - PO 81 mg DAILY [facility] Administration Atorvastatin Calcium 40 mg 09/20/19 22:00 10/03/19 22:16 Lipitor - PO 40 mg HS [facility] Administration Escitalopram Oxalate 10 mg 09/21/19 10:00 10/04/19 10:12 Lexapro - PO 10 mg DAILY [facility] Administration Furosemide 40 mg 09/21/19 10:00 10/04/19 10:12 Lasix Injection - IVPUSH 40 mg DAILY [facility] Administration Heparin Sodium (Porcine) 5,000 unit 09/29/19 14:00 10/04/19 06:30 Heparin - SQ 5,000 unit TID [facility] Administration Norepinephrine Bitartrate 8, 500 mls @ 18.75 mls/hr 09/27/19 22:00 10/04/19 02:00 000 mcg/ Dextrose IV Not Given TITR [facility] Protocol 5 MCG/MIN Levothyroxine Sodium 75 mcg 09/21/19 07:00 10/04/19 06:30 Synthroid - PO 75 mcg DAILY@0700 [facility] Administration Midodrine 5 mg 10/03/19 19:34 10/04/19 10:12 Proamatine - PO 5 mg TID-MID [facility] Administration Pantoprazole Sodium 40 mg 09/21/19 10:00 10/04/19 10:12 Protonix - PO 40 mg DAILY [facility] Administration Valacyclovir HCl 500 mg 09/21/19 10:00 10/04/19 10:12 Valtrex - PO 500 mg DAILY [facility] Administration ASSESSMENT/PLAN: 74 year old female with PMH HTN, HLD, CAD s/p coronary artery stenting, GERD, multiple myeloma (chemo; radiation directed at abdomen), poor LV compliance on Lasix, rectal hemorrhoids presented to ED for diarrhea x2 days associated with generalized weakness, ROGERS. Heme/Onc was consulted because of the patient's history of multiple myeloma. Multiple Myeloma -has received numerous treatments -on chemotherapy and radiation as an outpt Hypotension -pt states she typically has low BP -on levophed. ? trial of midodrine Tachypnea -on O2 -lungs clear to auscultation Visit type - Emergency Visit Emergency Visit: No - New Patient This patient is new to me today: No - Critical Care Critical Care patient: No ATTENDING PHYSICIAN STATEMENT I saw and evaluated the patient. I reviewed the resident's note and discussed the case with the resident. I agree with the resident's findings and plan as documented. SUBJECTIVE: OBJECTIVE: ASSESSMENT AND PLAN:
--- NOTE | 2019-10-04 12:35 | PN ---
Physical Exam: SUBJECTIVE: Patient seen and examined on morning ICU rounds. Due for last dose meropenem. Remains on Levo 5, attempting to wean. Denies pain, endorses improved swelling and breathing. MAPs 80s overnight. Midodrine 5 started last night. No fevers, chills, CP, SOB, nausea, vomiting. Endorses a good appetite. OBJECTIVE: Vital Signs Period Temp Pulse Resp BP Sys/Moss Pulse Ox Last 24 Hr 98.2 F-98.7 F 92-110 17-44 89-132/53-71 96 GENERAL: The patient is awake, alert, and fully oriented, in no acute distress. HEENT: NCAT, EOMI, normal morphologies. LUNGS: Crackles at bilateral lung bases, no accessory muscle use. HEART: Regular rate and rhythm, S1, S2 without murmur, rub or gallop. ABDOMEN: Soft, nontender, nondistended. EXTREMITIES: 2+ pulses, warm, well-perfused, improving edema - non pitting, bilateral ankles. NEUROLOGICAL: Cranial nerves grossly intact. Normal speech, gait not observed. SKIN: Warm, dry, no rashes observed. Laboratory Results - last 24 hr 10/04/19 10/04/19 05:20 05:20 WBC 2.8 L RBC 2.60 L Hgb 8.4 L Hct 25.3 L MCV 97.4 H MCH 32.5 MCHC 33.3 RDW 15.4 Plt Count 202 MPV 9.0 Absolute Neuts (auto) 1.6 Neutrophils % 59.2 Lymphocytes % 29.5 D Monocytes % 8.9 Eosinophils % 0.7 Basophils % 1.7 Nucleated RBC % 0 Sodium 139 Potassium 4.3 Chloride 105 Carbon Dioxide 26 Anion Gap 8 BUN 39.8 H Creatinine 0.8 Est GFR (CKD-EPI)AfAm 83.59 Est GFR (CKD-EPI)NonAf 72.12 Random Glucose 93 Calcium 8.6 Phosphorus 2.8 Magnesium 1.9 Total Bilirubin 0.2 AST 34 ALT 29 Alkaline Phosphatase 55 Total Protein 6.2 L Albumin 0.9 L Active Medications Generic Name Dose Route Start Last Admin Trade Name Freq PRN Reason Stop Dose Admin Acetaminophen 650 mg 09/20/19 22:25 09/28/19 21:23 Tylenol - PO 650 mg Q6H PRN Administration FEVER Allopurinol 300 mg 09/21/19 10:00 10/04/19 10:12 Zyloprim - PO 300 mg DAILY [facility] Administration Aspirin 81 mg 09/25/19 10:00 10/04/19 10:12 Ecotrin - PO 81 mg DAILY [facility] Administration Atorvastatin Calcium 40 mg 09/20/19 22:00 10/03/19 22:16 Lipitor - PO 40 mg HS [facility] Administration Escitalopram Oxalate 10 mg 09/21/19 10:00 10/04/19 10:12 Lexapro - PO 10 mg DAILY [facility] Administration Furosemide 40 mg 09/21/19 10:00 10/04/19 10:12 Lasix Injection - IVPUSH 40 mg DAILY [facility] Administration Heparin Sodium (Porcine) 5,000 unit 09/29/19 14:00 10/04/19 06:30 Heparin - SQ 5,000 unit TID [facility] Administration Norepinephrine Bitartrate 8, 500 mls @ 18.75 mls/hr 09/27/19 22:00 10/04/19 02:00 000 mcg/ Dextrose IV Not Given TITR [facility] Protocol 5 MCG/MIN Levothyroxine Sodium 75 mcg 09/21/19 07:00 10/04/19 06:30 Synthroid - PO 75 mcg DAILY@0700 [facility] Administration Midodrine 5 mg 10/03/19 19:34 10/04/19 10:12 Proamatine - PO 5 mg TID-MID [facility] Administration Pantoprazole Sodium 40 mg 09/21/19 10:00 10/04/19 10:12 Protonix - PO 40 mg DAILY [facility] Administration Valacyclovir HCl 500 mg 09/21/19 10:00 10/04/19 10:12 Valtrex - PO 500 mg DAILY [facility] Administration ASSESSMENT/PLAN: 73yo F PMH multiple myeloma (currently on treatment), amyloidosis, chronic anemia, hypertension, hyperlipidemia, hypothyroidism, GERD, admitted for UGIB, renal failure, volume overload, transferred to the ICU for hypotension refractory to IVF boluses. Progressing appropriately. RIJ (09/28), levophed 2, adequate MAPs, will taper as possible, now on midodrine 5 PO. #Neuro - AOx3 #Respiratory - CXR: improving effusions - Duonebs as needed - Continue Lasix 40mg IV OD - O2 to keep SpO2 >90% #CVS - EKG 09/27: LVH with QRS widening - Pt on levophed ggt, taper as tolerated - Now on Midodrine 5 (started 11/2 PM) - Continue Aspirin 81mg - Continue Atorvastatin 40mg - Appreciated cardiology recs #Renal - BUN/Cr: 39.8/0.8 (DEBBIE resolved) - Monitor I&Os, UOP, trend Cr - Daily weights - Appreciate nephrology recs #Heme/Onc - Multiple Myeloma: Continue Lokelma, Allopurinol #ID - Urine Cx: Strep Agalactiae - Meropenem, Valtrex - Monitor for fever / leukocytosis - Appreciate ID recs #Endo - Hx of hypothyroidism: Continue levothyroxine #FEN - Na controlled diet #Prophylaxis - SCDs #Dispo - Continued ICU monitoring Visit type - Emergency Visit Emergency Visit: Yes ED Registration Date: 09/20/19 Care time: The patient presented to the Emergency Department on the above date and was hospitalized for further evaluation of their emergent condition. - New Patient This patient is new to me today: No - Critical Care Critical Care patient: Yes Total Critical Care Time (in minutes): 36 Critical Care Statement: The care of this patient involved high complexity decision making to prevent further life threatening deterioration of the patient 's condition and/or to evaluate & treat vital organ system(s) failure or risk of failure. ATTENDING PHYSICIAN STATEMENT I saw and evaluated the patient. I reviewed the resident's note and discussed the case with the resident. I agree with the resident's findings and plan as documented. SUBJECTIVE: OBJECTIVE: ASSESSMENT AND PLAN:
--- NOTE | 2019-10-04 12:40 | PN ---
Progress Note, Physician History of Present Illness: stable still hypotensive on NE for pressor support breathing better - Current Medication List Current Medications: Active Medications Acetaminophen (Tylenol -) 650 mg PO Q6H PRN PRN Reason: FEVER Last Admin: 09/28/19 21:23 Dose: 650 mg Allopurinol (Zyloprim -) 300 mg PO DAILY [facility] Last Admin: 10/04/19 10:12 Dose: 300 mg Aspirin (Ecotrin -) 81 mg PO DAILY [facility] Last Admin: 10/04/19 10:12 Dose: 81 mg Atorvastatin Calcium (Lipitor -) 40 mg PO HS [facility] Last Admin: 10/03/19 22:16 Dose: 40 mg Escitalopram Oxalate (Lexapro -) 10 mg PO DAILY [facility] Last Admin: 10/04/19 10:12 Dose: 10 mg Furosemide (Lasix Injection -) 40 mg IVPUSH DAILY [facility] Last Admin: 10/04/19 10:12 Dose: 40 mg Heparin Sodium (Porcine) (Heparin -) 5,000 unit SQ TID [facility] Last Admin: 10/04/19 06:30 Dose: 5,000 unit Norepinephrine Bitartrate 8, (000 mcg/ Dextrose) 500 mls @ 18.75 mls/hr IV TITR [facility]; Protocol Last Admin: 10/04/19 02:00 Dose: Not Given Levothyroxine Sodium (Synthroid -) 75 mcg PO DAILY@0700 [facility] Last Admin: 10/04/19 06:30 Dose: 75 mcg Midodrine (Proamatine -) 5 mg PO TID-MID [facility] Last Admin: 10/04/19 10:12 Dose: 5 mg Pantoprazole Sodium (Protonix -) 40 mg PO DAILY [facility] Last Admin: 10/04/19 10:12 Dose: 40 mg Valacyclovir HCl (Valtrex -) 500 mg PO DAILY [facility] Last Admin: 10/04/19 10:12 Dose: 500 mg - Objective Vital Signs: Vital Signs Temperature 98.3 F 10/04/19 10:20 Pulse Rate 98 H 10/04/19 11:50 Respiratory Rate 22 H 10/04/19 11:50 Blood Pressure 102/65 10/04/19 11:50 O2 Sat by Pulse Oximetry (%) 96 10/03/19 21:00 Constitutional: Yes: No Distress, Calm Cardiovascular: Yes: S1, S2 Respiratory: Yes: Regular, On Nasal O2, Poor Air Entry Gastrointestinal: Yes: Normal Bowel Sounds, Soft Musculoskeletal: Yes: WNL Extremities: Yes: Other Edema: LLE: 1+, RLE: 1+ Neurological: Yes: Alert, Oriented Psychiatric: Yes: Alert, Oriented Labs: CBC, BMP 10/04/19 05:20 10/04/19 05:20 INR, PTT INR 1.16 (0.83-1.09) H 09/20/19 04:16 Assessment/Plan Problem List - Problems (1) Anasarca Code(s): R60.1 - GENERALIZED EDEMA (2) Fluid overload Code(s): E87.70 - FLUID OVERLOAD, UNSPECIFIED (3) Hypoxia Code(s): R09.02 - HYPOXEMIA (4) Weakness Code(s): R53.1 - WEAKNESS (5) ASHD (arteriosclerotic heart disease) Code(s): I25.10 - ATHSCL HEART DISEASE OF [place] CORONARY ARTERY W/O ANG PCTRS (6) Acute exacerbation of CHF (congestive heart failure) Code(s): I50.9 - HEART FAILURE, UNSPECIFIED (7) Acute on chronic systolic CHF (congestive heart failure) Code(s): I50.23 - ACUTE ON CHRONIC SYSTOLIC (CONGESTIVE) HEART FAILURE (8) Adult onset hypothyroidism Code(s): E03.8 - OTHER SPECIFIED HYPOTHYROIDISM (9) Anemia Code(s): D64.9 - ANEMIA, UNSPECIFIED (10) CKD (chronic kidney disease) Code(s): N18.9 - CHRONIC KIDNEY DISEASE, UNSPECIFIED (11) Elevated troponin Code(s): R74.8 - ABNORMAL LEVELS OF OTHER SERUM ENZYMES (12) HLD (hyperlipidemia) Code(s): E78.5 - HYPERLIPIDEMIA, UNSPECIFIED Qualifiers: Hyperlipidemia type: unspecified Qualified Code(s): E78.5 - Hyperlipidemia , unspecified (13) HTN (hypertension) Code(s): I10 - ESSENTIAL (PRIMARY) HYPERTENSION Qualifiers: Hypertension type: unspecified Qualified Code(s): I10 - Essential (primary ) hypertension (14) History of heart artery stent Code(s): Z95.5 - PRESENCE OF CORONARY ANGIOPLASTY IMPLANT AND GRAFT (15) Multiple myeloma Code(s): C90.00 - MULTIPLE MYELOMA NOT HAVING ACHIEVED REMISSION Qualifiers: Multiple myeloma remission status: not in remission Qualified Code(s): C90.00 - Multiple myeloma not having achieved remission uti hypotension Assessment/Plan continue current mgmt abx pressors rest as per the team supportive cc40 min
--- NOTE | 2019-10-04 13:34 | PN ---
Teaching Attending Note Name of Resident: Fernando Moeller ATTENDING PHYSICIAN STATEMENT I saw and evaluated the patient. I reviewed the resident's note and discussed the case with the resident. I agree with the resident's findings and plan as documented. SUBJECTIVE: Patient seen and examined in the ICU. Awake and alert. Denies CP or SOB. Remains on NE for hemodynamic support. Intake & Output 10/01/19 10/02/19 10/03/19 10/04/19 23:59 23:59 23:59 23:59 Intake Total 1386.5 1121 482 190 Output Total 900 1400 Balance 486.5 -279 482 190 Weight 156 lb 4.8 oz 156 lb 4.8 oz 159 lb Last Vital Signs Temp Pulse Resp BP Pulse Ox 98.3 F 98 H 22 H 102/65 96 10/04/19 10:20 10/04/19 11:50 10/04/19 11:50 10/04/19 11:50 10/03/19 21:00 Active Medications Acetaminophen (Tylenol -) 650 mg PO Q6H PRN PRN Reason: FEVER Last Admin: 09/28/19 21:23 Dose: 650 mg Allopurinol (Zyloprim -) 300 mg PO DAILY [facility] Last Admin: 10/04/19 10:12 Dose: 300 mg Aspirin (Ecotrin -) 81 mg PO DAILY [facility] Last Admin: 10/04/19 10:12 Dose: 81 mg Atorvastatin Calcium (Lipitor -) 40 mg PO HS [facility] Last Admin: 10/03/19 22:16 Dose: 40 mg Escitalopram Oxalate (Lexapro -) 10 mg PO DAILY [facility] Last Admin: 10/04/19 10:12 Dose: 10 mg Furosemide (Lasix Injection -) 40 mg IVPUSH DAILY [facility] Last Admin: 10/04/19 10:12 Dose: 40 mg Heparin Sodium (Porcine) (Heparin -) 5,000 unit SQ TID [facility] Last Admin: 10/04/19 06:30 Dose: 5,000 unit Norepinephrine Bitartrate 8, (000 mcg/ Dextrose) 500 mls @ 18.75 mls/hr IV TITR [facility]; Protocol Last Admin: 10/04/19 02:00 Dose: Not Given Levothyroxine Sodium (Synthroid -) 75 mcg PO DAILY@0700 [facility] Last Admin: 10/04/19 06:30 Dose: 75 mcg Midodrine (Proamatine -) 5 mg PO TID-MID [facility] Last Admin: 10/04/19 10:12 Dose: 5 mg Pantoprazole Sodium (Protonix -) 40 mg PO DAILY [facility] Last Admin: 10/04/19 10:12 Dose: 40 mg Valacyclovir HCl (Valtrex -) 500 mg PO DAILY [facility] Last Admin: 10/04/19 10:12 Dose: 500 mg Gen: Awake and alert, NAD Heart: RRR Lung: Bibasilar fine rales Abd: Obese, + BS, soft, nontender Ext: 2+ dependent edema Laboratory Results - last 24 hr 10/04/19 10/04/19 05:20 05:20 WBC 2.8 L RBC 2.60 L Hgb 8.4 L Hct 25.3 L MCV 97.4 H MCH 32.5 MCHC 33.3 RDW 15.4 Plt Count 202 MPV 9.0 Absolute Neuts (auto) 1.6 Neutrophils % 59.2 Lymphocytes % 29.5 D Monocytes % 8.9 Eosinophils % 0.7 Basophils % 1.7 Nucleated RBC % 0 Sodium 139 Potassium 4.3 Chloride 105 Carbon Dioxide 26 Anion Gap 8 BUN 39.8 H Creatinine 0.8 Est GFR (CKD-EPI)AfAm 83.59 Est GFR (CKD-EPI)NonAf 72.12 Random Glucose 93 Calcium 8.6 Phosphorus 2.8 Magnesium 1.9 Total Bilirubin 0.2 AST 34 ALT 29 Alkaline Phosphatase 55 Total Protein 6.2 L Albumin 0.9 L ASSESS: Acute on Chronic Systolic Heart Failure Cardiogenic Shock Acute on Chronic Renal Failure CAD Pneumonia Asthma Multiple Myeloma HTN Hyperlipidemia Hypothyroidism Anemia PLAN: - taper levophed drip as tolerated - monitor urine output, creatinine - daily weights - antibiotics per ID - O2 to keep SpO2 >90% - inhaled bronchodilators as needed - DVT prophylaxis - continue ICU monitoring while still on pressors Dr Bacon Critical care time spent in reviewing chart, evaluating patient and formulating plan - 36 minutes.
--- NOTE | 2019-10-04 15:00 | PN ---
Progress Note, Physician History of Present Illness: 74 year old black female with PMH HTN, HLD, CAD s/p coronary artery stenting, GERD, multiple myeloma (chemo; radiation directed at abdomen), ? "mild" systolic CHF, on Lasix, rectal hemorrhoids, now presented to ED for diarrhea x2 days associated with generalized weakness, ROGERS. Pt reported she has had loose, watery diarrhea x2 days, and prior to that he had rectal bleeding x2 days (on toilet paper and mixed in stool) that self resolved. She reported she only noticed the bleeding because it was on the toilet paper, as she did not have abdominal or rectal pain. Pt reported generalized weakness and ROGERS, which prompted her to come to the ED. Pt denied nausea, vomiting, fever, abdominal pain, chest pain, increased LE swelling. She reported she believed her lower extremity swelling is actually improving. She also reported noticing a new "rash " to her right hip since last week. - Current Medication List Current Medications: Active Medications Acetaminophen (Tylenol -) 650 mg PO Q6H PRN PRN Reason: FEVER Last Admin: 09/28/19 21:23 Dose: 650 mg Allopurinol (Zyloprim -) 300 mg PO DAILY [facility] Last Admin: 10/04/19 10:12 Dose: 300 mg Aspirin (Ecotrin -) 81 mg PO DAILY [facility] Last Admin: 10/04/19 10:12 Dose: 81 mg Atorvastatin Calcium (Lipitor -) 40 mg PO HS [facility] Last Admin: 10/03/19 22:16 Dose: 40 mg Escitalopram Oxalate (Lexapro -) 10 mg PO DAILY [facility] Last Admin: 10/04/19 10:12 Dose: 10 mg Furosemide (Lasix Injection -) 40 mg IVPUSH DAILY [facility] Last Admin: 10/04/19 10:12 Dose: 40 mg Heparin Sodium (Porcine) (Heparin -) 5,000 unit SQ TID [facility] Last Admin: 10/04/19 06:30 Dose: 5,000 unit Norepinephrine Bitartrate 8, (000 mcg/ Dextrose) 500 mls @ 18.75 mls/hr IV TITR [facility]; Protocol Last Admin: 10/04/19 02:00 Dose: Not Given Levothyroxine Sodium (Synthroid -) 75 mcg PO DAILY@0700 [facility] Last Admin: 10/04/19 06:30 Dose: 75 mcg Midodrine (Proamatine -) 5 mg PO TID-MID [facility] Last Admin: 10/04/19 10:12 Dose: 5 mg Pantoprazole Sodium (Protonix -) 40 mg PO DAILY [facility] Last Admin: 10/04/19 10:12 Dose: 40 mg Valacyclovir HCl (Valtrex -) 500 mg PO DAILY [facility] Last Admin: 10/04/19 10:12 Dose: 500 mg - Objective Vital Signs: Vital Signs Temperature 98.3 F 10/04/19 10:20 Pulse Rate 98 H 10/04/19 11:50 Respiratory Rate 22 H 10/04/19 11:50 Blood Pressure 102/65 10/04/19 11:50 O2 Sat by Pulse Oximetry (%) 96 10/03/19 21:00 Eyes: Yes: WNL, Conjunctiva Clear, EOM Intact HENT: Yes: WNL, Atraumatic, Normocephalic Neck: Yes: WNL, Supple, Trachea Midline Cardiovascular: Yes: WNL, Regular Rate and Rhythm Respiratory: Yes: WNL, Regular, CTA Bilaterally Gastrointestinal: Yes: WNL, Normal Bowel Sounds Genitourinary: Yes: WNL Musculoskeletal: Yes: WNL Extremities: Yes: WNL Edema: No Integumentary: Yes: WNL Neurological: Yes: WNL, Alert, Oriented ...Motor Strength: WNL Psychiatric: Yes: WNL Labs: CBC, BMP 10/04/19 05:20 10/04/19 05:20 INR, PTT INR 1.16 (0.83-1.09) H 09/20/19 04:16 Assessment/Plan 1. Acute on chronic class II NYHA classification LV systolic failure 2. CAD post KS/PCI/stent demand ischemia angina pectoris 3. HTN 4. Hyperlipidemia, not at goal 5. PNA, History of Asthma 6. History of hiatal hernia 7. Acute on CKD with proteinuria due to hemodynamic alterations improving 8. Multiple Myeloma 9. Anemia 10. 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 Continue IV Lasix with close monitoring of renal function and electrolytes, hemodyanamics permitting 2. Tapered levophed gtt trial of midodrine for assistance in pressor wean, resume Coreg and Entresto once hemodyanamics and renal fxn stabilize with close monitoring of renal function and electrolytes 3. Continue ASA 81 qd, Lipitor 40 qd with caution->anemia 4. Empiric antibiotics per ID, O2 to keep SpO2 >90%, inhaled bronchodilators as needed, DVT prophylaxis. cc time spent 36 min
--- NOTE | 2019-10-04 16:44 | PN ---
Progress Note, Physician History of Present Illness: Pt seen and examined at bedside. She is awake and alert. She denies shortness of breath. - Current Medication List Current Medications: Active Medications Acetaminophen (Tylenol -) 650 mg PO Q6H PRN PRN Reason: FEVER Last Admin: 09/28/19 21:23 Dose: 650 mg Allopurinol (Zyloprim -) 300 mg PO DAILY [facility] Last Admin: 10/04/19 10:12 Dose: 300 mg Aspirin (Ecotrin -) 81 mg PO DAILY [facility] Last Admin: 10/04/19 10:12 Dose: 81 mg Atorvastatin Calcium (Lipitor -) 40 mg PO HS [facility] Last Admin: 10/03/19 22:16 Dose: 40 mg Escitalopram Oxalate (Lexapro -) 10 mg PO DAILY [facility] Last Admin: 10/04/19 10:12 Dose: 10 mg Furosemide (Lasix Injection -) 40 mg IVPUSH DAILY [facility] Last Admin: 10/04/19 10:12 Dose: 40 mg Heparin Sodium (Porcine) (Heparin -) 5,000 unit SQ TID [facility] Last Admin: 10/04/19 06:30 Dose: 5,000 unit Norepinephrine Bitartrate 8, (000 mcg/ Dextrose) 500 mls @ 18.75 mls/hr IV TITR [facility]; Protocol Last Admin: 10/04/19 02:00 Dose: Not Given Levothyroxine Sodium (Synthroid -) 75 mcg PO DAILY@0700 [facility] Last Admin: 10/04/19 06:30 Dose: 75 mcg Midodrine (Proamatine -) 5 mg PO TID-MID [facility] Last Admin: 10/04/19 10:12 Dose: 5 mg Pantoprazole Sodium (Protonix -) 40 mg PO DAILY [facility] Last Admin: 10/04/19 10:12 Dose: 40 mg Valacyclovir HCl (Valtrex -) 500 mg PO DAILY [facility] Last Admin: 10/04/19 10:12 Dose: 500 mg - Objective Vital Signs: Vital Signs Temperature 98.3 F 10/04/19 10:20 Pulse Rate 98 H 10/04/19 11:50 Respiratory Rate 22 H 10/04/19 11:50 Blood Pressure 102/65 10/04/19 11:50 O2 Sat by Pulse Oximetry (%) 96 10/04/19 16:41 Constitutional: Yes: Calm Eyes: Yes: Conjunctiva Clear HENT: Yes: Atraumatic Neck: Yes: Supple Cardiovascular: Yes: S1, S2 Respiratory: Yes: CTA Bilaterally Gastrointestinal: Yes: Soft Genitourinary: Yes: Incontinence Musculoskeletal: Yes: WNL Edema: LLE: Trace, RLE: Trace Neurological: Yes: Oriented Psychiatric: Yes: Oriented Labs: CBC, BMP 10/04/19 05:20 10/04/19 05:20 INR, PTT INR 1.16 (0.83-1.09) H 09/20/19 04:16 Assessment/Plan Current Medications Generic Name Dose Route Start Last Admin Trade Name Freq PRN Reason Stop Dose Admin Acetaminophen 650 mg 09/20/19 22:25 09/28/19 21:23 Tylenol - PO 650 mg Q6H PRN Administration FEVER Allopurinol 300 mg 09/21/19 10:00 10/04/19 10:12 Zyloprim - PO 300 mg DAILY [facility] Administration Aspirin 81 mg 09/25/19 10:00 10/04/19 10:12 Ecotrin - PO 81 mg DAILY [facility] Administration Atorvastatin Calcium 40 mg 09/20/19 22:00 10/03/19 22:16 Lipitor - PO 40 mg HS [facility] Administration Escitalopram Oxalate 10 mg 09/21/19 10:00 10/04/19 10:12 Lexapro - PO 10 mg DAILY [facility] Administration Furosemide 40 mg 09/21/19 10:00 10/04/19 10:12 Lasix Injection - IVPUSH 40 mg DAILY [facility] Administration Heparin Sodium (Porcine) 5,000 unit 09/29/19 14:00 10/04/19 06:30 Heparin - SQ 5,000 unit TID [facility] Administration Norepinephrine Bitartrate 8, 500 mls @ 18.75 mls/hr 09/27/19 22:00 10/04/19 02:00 000 mcg/ Dextrose IV Not Given TITR [facility] Protocol 5 MCG/MIN Levothyroxine Sodium 75 mcg 09/21/19 07:00 10/04/19 06:30 Synthroid - PO 75 mcg DAILY@0700 [facility] Administration Midodrine 5 mg 10/03/19 19:34 10/04/19 10:12 Proamatine - PO 5 mg TID-MID [facility] Administration Pantoprazole Sodium 40 mg 09/21/19 10:00 10/04/19 10:12 Protonix - PO 40 mg DAILY [facility] Administration Valacyclovir HCl 500 mg 09/21/19 10:00 10/04/19 10:12 Valtrex - PO 500 mg DAILY [facility] Administration Impression 1. proteinuria 2. multiple myeloma 3. amyloid 4. dizziness 5. hypotension 6. HLD 7. hypothyroidism 8. anemia 9. CKD 10. fluid overload 11. hypotension Plan - renal function stable - cont lasix - titrate pressors to map 65 - monitor labs daily - volume status improved - monitor bp
[2019-10-04] MEDS: ACETAMINOPHEN 325 MG TABLET (FP) PO PRN (19:53)
[2019-10-04] MEDS: ATORVASTATIN CA 40 MG TABLET (FP) PO SCH (21:20)
--- NOTE | 2019-10-04 22:55 | PN ---
Progress Note, Physician History of Present Illness: No new complaints - Current Medication List Current Medications: Active Medications Acetaminophen (Tylenol -) 650 mg PO Q6H PRN PRN Reason: FEVER Last Admin: 10/04/19 19:53 Dose: 650 mg Allopurinol (Zyloprim -) 300 mg PO DAILY [facility] Last Admin: 10/04/19 10:12 Dose: 300 mg Aspirin (Ecotrin -) 81 mg PO DAILY [facility] Last Admin: 10/04/19 10:12 Dose: 81 mg Atorvastatin Calcium (Lipitor -) 40 mg PO HS [facility] Last Admin: 10/04/19 21:20 Dose: 40 mg Escitalopram Oxalate (Lexapro -) 10 mg PO DAILY [facility] Last Admin: 10/04/19 10:12 Dose: 10 mg Furosemide (Lasix Injection -) 40 mg IVPUSH DAILY [facility] Last Admin: 10/04/19 10:12 Dose: 40 mg Heparin Sodium (Porcine) (Heparin -) 5,000 unit SQ TID [facility] Last Admin: 10/04/19 21:20 Dose: 5,000 unit Norepinephrine Bitartrate 8, (000 mcg/ Dextrose) 500 mls @ 18.75 mls/hr IV TITR [facility]; Protocol Last Admin: 10/04/19 21:27 Dose: 4 mcg/min, 15 mls/hr Levothyroxine Sodium (Synthroid -) 75 mcg PO DAILY@0700 [facility] Last Admin: 10/04/19 06:30 Dose: 75 mcg Midodrine (Proamatine -) 5 mg PO TID-MID [facility] Last Admin: 10/04/19 18:00 Dose: 5 mg Pantoprazole Sodium (Protonix -) 40 mg PO DAILY [facility] Last Admin: 10/04/19 10:12 Dose: 40 mg Valacyclovir HCl (Valtrex -) 500 mg PO DAILY [facility] Last Admin: 10/04/19 10:12 Dose: 500 mg - Objective Vital Signs: Vital Signs Temperature 98.3 F 10/04/19 10:20 Pulse Rate 102 H 10/04/19 21:27 Respiratory Rate 20 10/04/19 18:52 Blood Pressure 118/69 10/04/19 21:27 O2 Sat by Pulse Oximetry (%) 96 10/04/19 18:07 Labs: CBC, BMP 10/04/19 05:20 10/04/19 05:20 INR, PTT INR 1.16 (0.83-1.09) H 09/20/19 04:16 Problem List - Problems (1) Acute on chronic systolic CHF (congestive heart failure) Code(s): I50.23 - ACUTE ON CHRONIC SYSTOLIC (CONGESTIVE) HEART FAILURE (2) UTI (urinary tract infection) Code(s): N39.0 - URINARY TRACT INFECTION, SITE NOT SPECIFIED (3) HTN (hypertension) Code(s): I10 - ESSENTIAL (PRIMARY) HYPERTENSION Qualifiers: Hypertension type: unspecified Qualified Code(s): I10 - Essential (primary ) hypertension (4) Multiple myeloma Code(s): C90.00 - MULTIPLE MYELOMA NOT HAVING ACHIEVED REMISSION Qualifiers: Multiple myeloma remission status: not in remission Qualified Code(s): C90.00 - Multiple myeloma not having achieved remission (5) HLD (hyperlipidemia) Code(s): E78.5 - HYPERLIPIDEMIA, UNSPECIFIED Qualifiers: Hyperlipidemia type: unspecified Qualified Code(s): E78.5 - Hyperlipidemia , unspecified (6) Hypothyroidism Code(s): E03.9 - HYPOTHYROIDISM, UNSPECIFIED Qualifiers: Hypothyroidism type: acquired Qualified Code(s): E03.9 - Hypothyroidism, unspecified (7) CAD (coronary artery disease) Code(s): I25.10 - ATHSCL HEART DISEASE OF [place] CORONARY ARTERY W/O ANG PCTRS Qualifiers: (8) Depression Code(s): F32.9 - MAJOR DEPRESSIVE DISORDER, SINGLE EPISODE, UNSPECIFIED (9) History of heart artery stent Code(s): Z95.5 - PRESENCE OF CORONARY ANGIOPLASTY IMPLANT AND GRAFT (10) Elevated troponin Code(s): R74.8 - ABNORMAL LEVELS OF OTHER SERUM ENZYMES (11) Diarrhea Code(s): R19.7 - DIARRHEA, UNSPECIFIED Qualifiers: Diarrhea type: unspecified type Qualified Code(s): R19.7 - Diarrhea, unspecified
[2019-10-05] MEDS: HEPARIN NA (PORCINE) 5,000 UNITS/ML 1ML VIAL SQ SCH ×3 (06:04→21:00)
[2019-10-05] MEDS: LEVOTHYROXINE NA 75 MCG TABLET (FP) PO SCH (06:04)
[2019-10-05 06:38] LABS: BASO % 1.2 % (0-2.0); EOS % 1.2 % (0-4.5); HEMATOCRIT 25.1 % (32.4-45.2); HEMOGLOBIN 8.2 GM/dL (10.7-15.3); LYMPH % 27.7 % (8-40); MCHC 32.7 g/dl (32.0-36.0); MEAN CELL VOLUME 97.8 fl (80-96); MEAN PLT VOLUME 8.7 fl (7.5-11.1); MONO % 10.5 % (3.8-10.2); NEUT % 59.4 % (42.8-82.8); PLATELET COUNT 204 K/MM3 (134-434); RBC 2.57 M/mm3 (3.60-5.2); RDW 15.7 % (11.6-15.6); WHITE BLOOD COUNT 3.4 K/mm3 (4.0-10.0)
[2019-10-05 07:06] LABS: ALBUMIN 0.9 g/dl (3.4-5.0); BILIRUBIN,TOTAL 0.1 mg/dL (0.2-1); BLOOD UREA NITROGEN 37.1 mg/dL (7-18); CALCIUM 8.6 mg/dL (8.5-10.1); CREATININE 0.6 mg/dL (0.55-1.3); PHOSPHOROUS 2.5 mg/dL (2.5-4.9); POTASSIUM 4.3 mmol/L (3.5-5.1); TOT PROT 6.2 g/dl (6.4-8.2)
--- NOTE | 2019-10-05 08:42 | PN ---
Physical Exam: SUBJECTIVE: Patient seen and examined by the bedside, endorses a headache, no other complaints. OBJECTIVE: Vital Signs Period Temp Pulse Resp BP Sys/Moss Pulse Ox Last 24 Hr 97.8 F-98.8 F 94-109 20-29 94-121/52-69 96-98 GENERAL: AOx3 EYES: ZIOLA, EOMI HEENT: Dry mucus membranes LUNGS: Diminished breath sounds B/L HEART: RRR, no rubs or murmurs ABDOMEN: Soft, nontender, not distended EXTREMITIES: 2+ pitting edema B/L NEUROLOGICAL: Motor 4/5, sensations intact SKIN: Warm, dry. Laboratory Results - last 24 hr 10/05/19 10/05/19 06:00 06:00 WBC 3.4 L RBC 2.57 L Hgb 8.2 L Hct 25.1 L MCV 97.8 H MCH 32.0 MCHC 32.7 RDW 15.7 H Plt Count 204 MPV 8.7 Absolute Neuts (auto) 2.0 Neutrophils % 59.4 Lymphocytes % 27.7 Monocytes % 10.5 H Eosinophils % 1.2 Basophils % 1.2 Nucleated RBC % 0 Sodium 139 Potassium 4.3 Chloride 105 Carbon Dioxide 28 Anion Gap 6 L BUN 37.1 H Creatinine 0.6 Est GFR (CKD-EPI)AfAm 103.34 Est GFR (CKD-EPI)NonAf 89.16 Random Glucose 102 Calcium 8.6 Phosphorus 2.5 Magnesium 2.0 Total Bilirubin 0.1 L AST 69 H ALT 61 Alkaline Phosphatase 75 Total Protein 6.2 L Albumin 0.9 L Active Medications Generic Name Dose Route Start Last Admin Trade Name Freq PRN Reason Stop Dose Admin Acetaminophen 650 mg 09/20/19 22:25 10/04/19 19:53 Tylenol - PO 650 mg Q6H PRN Administration FEVER Allopurinol 300 mg 09/21/19 10:00 10/04/19 10:12 Zyloprim - PO 300 mg DAILY [facility] Administration Aspirin 81 mg 09/25/19 10:00 10/04/19 10:12 Ecotrin - PO 81 mg DAILY [facility] Administration Atorvastatin Calcium 40 mg 09/20/19 22:00 10/04/19 21:20 Lipitor - PO 40 mg HS [facility] Administration Escitalopram Oxalate 10 mg 09/21/19 10:00 10/04/19 10:12 Lexapro - PO 10 mg DAILY [facility] Administration Furosemide 40 mg 09/21/19 10:00 10/04/19 10:12 Lasix Injection - IVPUSH 40 mg DAILY [facility] Administration Heparin Sodium (Porcine) 5,000 unit 09/29/19 14:00 10/05/19 06:04 Heparin - SQ 5,000 unit TID [facility] Administration Norepinephrine Bitartrate 8, 500 mls @ 18.75 mls/hr 09/27/19 22:00 10/05/19 08:00 000 mcg/ Dextrose IV 3 mcg/min TITR [facility] 11.25 mls/hr Titration Protocol 5 MCG/MIN Levothyroxine Sodium 75 mcg 09/21/19 07:00 10/05/19 06:04 Synthroid - PO 75 mcg DAILY@0700 [facility] Administration Midodrine 5 mg 10/03/19 19:34 10/04/19 18:00 Proamatine - PO 5 mg TID-MID [facility] Administration Pantoprazole Sodium 40 mg 09/21/19 10:00 10/04/19 10:12 Protonix - PO 40 mg DAILY [facility] Administration Valacyclovir HCl 500 mg 09/21/19 10:00 10/04/19 10:12 Valtrex - PO 500 mg DAILY [facility] Administration ASSESSMENT/PLAN: 73yo F PMH multiple myeloma (currently on treatment), amyloidosis, chronic anemia, hypertension, hyperlipidemia, hypothyroidism, GERD, admitted for UGIB, renal failure, volume overload, transferred to the ICU for hypotension refractory to IVF boluses. #Neuro - AOx3 #Respiratory - CXR: improving effusions - Duonebs as needed - Continue Lasix 40mg IV OD #CVS - Cardiogenic shock: Started Milrinone drip, Midodrine 5mg PO 09/03, wean Norepi ([facility] 09/28) - Cardio recs: Spoke with Dr. Bingham, agreed with Milrinone, resume Coreg and Entresto once hemodyanamics and renal fxn stabilize - EKG 09/27: LVH with QRS widening - Continue home meds Aspirin 81mg, Atorvastatin 40mg #Renal - BUN/Cr: 39.8/0.8 -> 37.1/0.6 - Nephro recs: Hold Losartan, continue Midodrine and Lasix - Monitor I&Os, UOP, trend Cr #Heme/Onc - Multiple Myeloma: Continue Lokelma, Allopurinol #ID - ID recs: Stop abx, was previously on Meropenem #Endo - Hx of hypothyroidism: Continue levothyroxine #FEN - Na controlled diet #Prophylaxis - SCDs #Dispo - Continued ICU monitoring Visit type - Emergency Visit Emergency Visit: Yes ED Registration Date: 09/20/19 Care time: The patient presented to the Emergency Department on the above date and was hospitalized for further evaluation of their emergent condition. - New Patient This patient is new to me today: No - Critical Care Critical Care patient: Yes Total Critical Care Time (in minutes): 38 Critical Care Statement: The care of this patient involved high complexity decision making to prevent further life threatening deterioration of the patient 's condition and/or to evaluate & treat vital organ system(s) failure or risk of failure. ATTENDING PHYSICIAN STATEMENT I saw and evaluated the patient. I reviewed the resident's note and discussed the case with the resident. I agree with the resident's findings and plan as documented. SUBJECTIVE: OBJECTIVE: ASSESSMENT AND PLAN:
[2019-10-05] MEDS ORDERED: PT OWN MED DRAWER 7, Y5N ONE (09:48)
[2019-10-05] MEDS: ASPIRIN COATED 81 MG TABLET.EC PO SCH (10:00)
[2019-10-05] MEDS: ALLOPURINOL 300 MG TABLET (FP) PO SCH (10:00)
[2019-10-05] MEDS: ESCITALOPRAM OXALATE 10 MG TABLET (FP) PO SCH (10:00)
[2019-10-05] MEDS: MIDODRINE HCL 5 MG TABLET PO SCH ×3 (10:01→17:01)
[2019-10-05] MEDS: FUROSEMIDE 40 MG/4 ML INJECTABLE VIAL IVPUSH SCH (10:01)
[2019-10-05] MEDS: PANTOPRAZOLE 40 MG TABLET (FP) PO SCH (10:01)
[2019-10-05] MEDS: valACYclovir HCL 500 MG TABLET (FP) PO SCH (10:01)
[2019-10-05] MEDS: MILRINONE 20MG/100ML IVPB - 20,000 MCG/100 ML ML IVPB SCH ×2 (11:30→21:04)
--- NOTE | 2019-10-05 12:30 | PN ---
Progress Note, Physician History of Present Illness: 74 year old black female with PMH HTN, HLD, CAD s/p coronary artery stenting, GERD, multiple myeloma (chemo; radiation directed at abdomen), ? "mild" systolic CHF, on Lasix, rectal hemorrhoids, now presented to ED for diarrhea x2 days associated with generalized weakness, ROGERS. Pt reported she has had loose, watery diarrhea x2 days, and prior to that he had rectal bleeding x2 days (on toilet paper and mixed in stool) that self resolved. She reported she only noticed the bleeding because it was on the toilet paper, as she did not have abdominal or rectal pain. Pt reported generalized weakness and ROGERS, which prompted her to come to the ED. Pt denied nausea, vomiting, fever, abdominal pain, chest pain, increased LE swelling. She reported she believed her lower extremity swelling is actually improving. She also reported noticing a new "rash " to her right hip since last week. - Current Medication List Current Medications: Active Medications Acetaminophen (Tylenol -) 650 mg PO Q6H PRN PRN Reason: FEVER Last Admin: 10/04/19 19:53 Dose: 650 mg Allopurinol (Zyloprim -) 300 mg PO DAILY [facility] Last Admin: 10/05/19 10:00 Dose: 300 mg Aspirin (Ecotrin -) 81 mg PO DAILY [facility] Last Admin: 10/05/19 10:00 Dose: 81 mg Atorvastatin Calcium (Lipitor -) 40 mg PO HS [facility] Last Admin: 10/04/19 21:20 Dose: 40 mg Escitalopram Oxalate (Lexapro -) 10 mg PO DAILY [facility] Last Admin: 10/05/19 10:00 Dose: 10 mg Furosemide (Lasix Injection -) 40 mg IVPUSH DAILY [facility] Last Admin: 10/05/19 10:01 Dose: 40 mg Heparin Sodium (Porcine) (Heparin -) 5,000 unit SQ TID [facility] Last Admin: 10/05/19 06:04 Dose: 5,000 unit Norepinephrine Bitartrate 8, (000 mcg/ Dextrose) 500 mls @ 18.75 mls/hr IV TITR [facility]; Protocol Last Titration: 10/05/19 10:00 Dose: 4 mcg/min, 15 mls/hr Milrinone Lactate/Dextrose (Milrinone 20mg/100ml Ivpb -) 20,000 mcg in 100 mls @ 4.311 mls/hr IVPB TITR [facility]; Protocol Last Admin: 10/05/19 11:30 Dose: 0.2 mcg/kg/min, 4.311 mls/hr Levothyroxine Sodium (Synthroid -) 75 mcg PO DAILY@0700 [facility] Last Admin: 10/05/19 06:04 Dose: 75 mcg Midodrine (Proamatine -) 5 mg PO TID-MID [facility] Last Admin: 10/05/19 10:01 Dose: 5 mg Pantoprazole Sodium (Protonix -) 40 mg PO DAILY [facility] Last Admin: 10/05/19 10:01 Dose: 40 mg Valacyclovir HCl (Valtrex -) 500 mg PO DAILY [facility] Last Admin: 10/05/19 10:01 Dose: 500 mg - Objective Vital Signs: Vital Signs Temperature 98.9 F 10/05/19 10:00 Pulse Rate 100 H 10/05/19 10:00 Respiratory Rate 22 H 10/05/19 10:00 Blood Pressure 79/51 L 10/05/19 10:00 O2 Sat by Pulse Oximetry (%) 98 10/05/19 07:47 Eyes: Yes: WNL, Conjunctiva Clear, EOM Intact HENT: Yes: WNL, Atraumatic, Normocephalic Neck: Yes: WNL, Supple, Trachea Midline Cardiovascular: Yes: WNL, Regular Rate and Rhythm Respiratory: Yes: WNL, Regular, CTA Bilaterally Gastrointestinal: Yes: WNL, Normal Bowel Sounds Genitourinary: Yes: WNL Musculoskeletal: Yes: WNL Extremities: Yes: WNL Edema: No Integumentary: Yes: WNL Neurological: Yes: WNL, Alert, Oriented ...Motor Strength: WNL Psychiatric: Yes: WNL Labs: CBC, BMP 10/05/19 06:00 10/05/19 06:00 INR, PTT INR 1.16 (0.83-1.09) H 09/20/19 04:16 Assessment/Plan 1. Acute on chronic class II NYHA classification LV systolic failure 2. CAD post GA/PCI/stent demand ischemia angina pectoris 3. HTN 4. Hyperlipidemia, not at goal 5. PNA, History of Asthma 6. History of hiatal hernia 7. Acute on CKD with proteinuria due to hemodynamic alterations improving 8. Multiple Myeloma 9. Anemia 10. 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 Continue IV Lasix with close monitoring of renal function and electrolytes, hemodyanamics permitting 2. Back on levophed gtt trial of midodrine for assistance in pressor wean, resume Coreg and Entresto once hemodyanamics and renal fxn stabilize with close monitoring of renal function and electrolytes 3. Continue ASA 81 qd, Lipitor 40 qd with caution->anemia 4. Empiric antibiotics per ID, O2 to keep SpO2 >90%, inhaled bronchodilators as needed, DVT prophylaxis. 5. On Milrinon cc time spent 36 min
--- NOTE | 2019-10-05 12:52 | PN ---
Progress Note, Physician History of Present Illness: Pt seen and examined at bedside. She is awake and alert. She denies shortness of breath. - Current Medication List Current Medications: Active Medications Acetaminophen (Tylenol -) 650 mg PO Q6H PRN PRN Reason: FEVER Last Admin: 10/04/19 19:53 Dose: 650 mg Allopurinol (Zyloprim -) 300 mg PO DAILY [facility] Last Admin: 10/05/19 10:00 Dose: 300 mg Aspirin (Ecotrin -) 81 mg PO DAILY [facility] Last Admin: 10/05/19 10:00 Dose: 81 mg Atorvastatin Calcium (Lipitor -) 40 mg PO HS [facility] Last Admin: 10/04/19 21:20 Dose: 40 mg Escitalopram Oxalate (Lexapro -) 10 mg PO DAILY [facility] Last Admin: 10/05/19 10:00 Dose: 10 mg Furosemide (Lasix Injection -) 40 mg IVPUSH DAILY [facility] Last Admin: 10/05/19 10:01 Dose: 40 mg Heparin Sodium (Porcine) (Heparin -) 5,000 unit SQ TID [facility] Last Admin: 10/05/19 06:04 Dose: 5,000 unit Norepinephrine Bitartrate 8, (000 mcg/ Dextrose) 500 mls @ 18.75 mls/hr IV TITR [facility]; Protocol Last Titration: 10/05/19 10:00 Dose: 4 mcg/min, 15 mls/hr Milrinone Lactate/Dextrose (Milrinone 20mg/100ml Ivpb -) 20,000 mcg in 100 mls @ 4.311 mls/hr IVPB TITR [facility]; Protocol Last Admin: 10/05/19 11:30 Dose: 0.2 mcg/kg/min, 4.311 mls/hr Levothyroxine Sodium (Synthroid -) 75 mcg PO DAILY@0700 [facility] Last Admin: 10/05/19 06:04 Dose: 75 mcg Midodrine (Proamatine -) 5 mg PO TID-MID [facility] Last Admin: 10/05/19 10:01 Dose: 5 mg Pantoprazole Sodium (Protonix -) 40 mg PO DAILY [facility] Last Admin: 10/05/19 10:01 Dose: 40 mg Valacyclovir HCl (Valtrex -) 500 mg PO DAILY [facility] Last Admin: 10/05/19 10:01 Dose: 500 mg - Objective Vital Signs: Vital Signs Temperature 98.9 F 10/05/19 10:00 Pulse Rate 94 H 10/05/19 12:00 Respiratory Rate 17 10/05/19 12:00 Blood Pressure 93/54 L 10/05/19 12:00 O2 Sat by Pulse Oximetry (%) 98 10/05/19 07:47 Constitutional: Yes: Calm Eyes: Yes: Conjunctiva Clear HENT: Yes: Atraumatic Neck: Yes: Supple Cardiovascular: Yes: S1, S2 Respiratory: Yes: CTA Bilaterally Gastrointestinal: Yes: Soft Genitourinary: Yes: Incontinence Musculoskeletal: Yes: Muscle Weakness Edema: No Neurological: Yes: Oriented Psychiatric: Yes: Oriented Labs: CBC, BMP 10/05/19 06:00 10/05/19 06:00 INR, PTT INR 1.16 (0.83-1.09) H 09/20/19 04:16 Assessment/Plan Current Medications Generic Name Dose Route Start Last Admin Trade Name Freq PRN Reason Stop Dose Admin Acetaminophen 650 mg 09/20/19 22:25 10/04/19 19:53 Tylenol - PO 650 mg Q6H PRN Administration FEVER Allopurinol 300 mg 09/21/19 10:00 10/05/19 10:00 Zyloprim - PO 300 mg DAILY [facility] Administration Aspirin 81 mg 09/25/19 10:00 10/05/19 10:00 Ecotrin - PO 81 mg DAILY [facility] Administration Atorvastatin Calcium 40 mg 09/20/19 22:00 10/04/19 21:20 Lipitor - PO 40 mg HS [facility] Administration Escitalopram Oxalate 10 mg 09/21/19 10:00 10/05/19 10:00 Lexapro - PO 10 mg DAILY [facility] Administration Furosemide 40 mg 09/21/19 10:00 10/05/19 10:01 Lasix Injection - IVPUSH 40 mg DAILY [facility] Administration Heparin Sodium (Porcine) 5,000 unit 09/29/19 14:00 10/05/19 06:04 Heparin - SQ 5,000 unit TID [facility] Administration Norepinephrine Bitartrate 8, 500 mls @ 18.75 mls/hr 09/27/19 22:00 10/05/19 10:00 000 mcg/ Dextrose IV 4 mcg/min TITR [facility] 15 mls/hr Titration Protocol 5 MCG/MIN Milrinone Lactate/Dextrose 20,000 mcg in 100 mls @ 4.311 mls/hr 10/05/19 11: 00 10/05/19 11:30 Milrinone 20mg/100ml Ivpb - IVPB 0.2 mcg/kg/min TITR [facility] 4.311 mls/hr Administration Protocol 0.2 MCG/KG/MIN Levothyroxine Sodium 75 mcg 09/21/19 07:00 10/05/19 06:04 Synthroid - PO 75 mcg DAILY@0700 [facility] Administration Midodrine 5 mg 10/03/19 19:34 10/05/19 10:01 Proamatine - PO 5 mg TID-MID [facility] Administration Pantoprazole Sodium 40 mg 09/21/19 10:00 10/05/19 10:01 Protonix - PO 40 mg DAILY [facility] Administration Valacyclovir HCl 500 mg 09/21/19 10:00 10/05/19 10:01 Valtrex - PO 500 mg DAILY [facility] Administration Impression 1. proteinuria 2. multiple myeloma 3. amyloid 4. dizziness 5. hypotension 6. HLD 7. hypothyroidism 8. anemia 9. CKD 10. fluid overload 11. hypotension Plan - cont lasix - monitor renal fuction - consider midodrine to help taper pressors - hold losartan (was on it to help with proteinuria) - monitor labs daily - volume status improved - monitor bp
--- NOTE | 2019-10-05 12:59 | PN ---
Teaching Attending Note Name of Resident: Roger Herr ATTENDING PHYSICIAN STATEMENT I saw and evaluated the patient. I reviewed the resident's note and discussed the case with the resident. I agree with the resident's findings and plan as documented. SUBJECTIVE: Pt seen and examined in the ICU. Remains on levophed gtt. Denies shortness of breath or chest pain. OBJECTIVE: Vital Signs Period Temp Pulse Resp BP Sys/Moss Pulse Ox Last 24 Hr 97.8 F-98.9 F 93-109 17-30 79-121/51-69 96-98 Intake & Output 10/02/19 10/03/19 10/04/19 10/05/19 23:59 23:59 23:59 23:59 Intake Total 1121 482 654.4 405 Output Total 1400 Balance -279 482 654.4 405 Weight 70.896 kg 72.121 kg 71.849 kg Gen: NAD at rest Heart: RRR Lung: decreased breath sounds at the bases Abd: soft, nontender Ext: no edema CBC, BMP 10/05/19 06:00 10/05/19 06:00 Active Medications Acetaminophen (Tylenol -) 650 mg PO Q6H PRN PRN Reason: FEVER Last Admin: 10/04/19 19:53 Dose: 650 mg Allopurinol (Zyloprim -) 300 mg PO DAILY [facility] Last Admin: 10/05/19 10:00 Dose: 300 mg Aspirin (Ecotrin -) 81 mg PO DAILY [facility] Last Admin: 10/05/19 10:00 Dose: 81 mg Atorvastatin Calcium (Lipitor -) 40 mg PO HS [facility] Last Admin: 10/04/19 21:20 Dose: 40 mg Escitalopram Oxalate (Lexapro -) 10 mg PO DAILY [facility] Last Admin: 10/05/19 10:00 Dose: 10 mg Furosemide (Lasix Injection -) 40 mg IVPUSH DAILY [facility] Last Admin: 10/05/19 10:01 Dose: 40 mg Heparin Sodium (Porcine) (Heparin -) 5,000 unit SQ TID [facility] Last Admin: 10/05/19 06:04 Dose: 5,000 unit Norepinephrine Bitartrate 8, (000 mcg/ Dextrose) 500 mls @ 18.75 mls/hr IV TITR [facility]; Protocol Last Titration: 10/05/19 10:00 Dose: 4 mcg/min, 15 mls/hr Milrinone Lactate/Dextrose (Milrinone 20mg/100ml Ivpb -) 20,000 mcg in 100 mls @ 4.311 mls/hr IVPB TITR [facility]; Protocol Last Admin: 10/05/19 11:30 Dose: 0.2 mcg/kg/min, 4.311 mls/hr Levothyroxine Sodium (Synthroid -) 75 mcg PO DAILY@0700 [facility] Last Admin: 10/05/19 06:04 Dose: 75 mcg Midodrine (Proamatine -) 5 mg PO TID-MID [facility] Last Admin: 10/05/19 10:01 Dose: 5 mg Pantoprazole Sodium (Protonix -) 40 mg PO DAILY [facility] Last Admin: 10/05/19 10:01 Dose: 40 mg Valacyclovir HCl (Valtrex -) 500 mg PO DAILY [facility] Last Admin: 10/05/19 10:01 Dose: 500 mg ASSESSMENT AND PLAN: Acute on Chronic Systolic Heart Failure Cardiogenic Shock Acute on Chronic Renal Failure CAD Pneumonia Asthma Multiple Myeloma HTN Hyperlipidemia Hypothyroidism Anemia - continue lasix - start inotrope support - taper off levophed gtt, would tolerate MAP >50 as long as urine output adequate - monitor urine output, creatinine - daily weights - completed antibiotics - O2 to keep SpO2 >90% - inhaled bronchodilators as needed - DVT prophylaxis - continue ICU monitoring critical care time spent in reviewing chart, evaluating patient and formulating plan 35 min
--- NOTE | 2019-10-05 13:20 | PN ---
Progress Note, Physician History of Present Illness: improving says she is feeling better still on low pressors - Current Medication List Current Medications: Active Medications Acetaminophen (Tylenol -) 650 mg PO Q6H PRN PRN Reason: FEVER Last Admin: 10/04/19 19:53 Dose: 650 mg Allopurinol (Zyloprim -) 300 mg PO DAILY [facility] Last Admin: 10/05/19 10:00 Dose: 300 mg Aspirin (Ecotrin -) 81 mg PO DAILY [facility] Last Admin: 10/05/19 10:00 Dose: 81 mg Atorvastatin Calcium (Lipitor -) 40 mg PO HS [facility] Last Admin: 10/04/19 21:20 Dose: 40 mg Escitalopram Oxalate (Lexapro -) 10 mg PO DAILY [facility] Last Admin: 10/05/19 10:00 Dose: 10 mg Furosemide (Lasix Injection -) 40 mg IVPUSH DAILY [facility] Last Admin: 10/05/19 10:01 Dose: 40 mg Heparin Sodium (Porcine) (Heparin -) 5,000 unit SQ TID [facility] Last Admin: 10/05/19 06:04 Dose: 5,000 unit Norepinephrine Bitartrate 8, (000 mcg/ Dextrose) 500 mls @ 18.75 mls/hr IV TITR [facility]; Protocol Last Titration: 10/05/19 10:00 Dose: 4 mcg/min, 15 mls/hr Milrinone Lactate/Dextrose (Milrinone 20mg/100ml Ivpb -) 20,000 mcg in 100 mls @ 4.311 mls/hr IVPB TITR [facility]; Protocol Last Admin: 10/05/19 11:30 Dose: 0.2 mcg/kg/min, 4.311 mls/hr Levothyroxine Sodium (Synthroid -) 75 mcg PO DAILY@0700 [facility] Last Admin: 10/05/19 06:04 Dose: 75 mcg Midodrine (Proamatine -) 5 mg PO TID-MID [facility] Last Admin: 10/05/19 10:01 Dose: 5 mg Pantoprazole Sodium (Protonix -) 40 mg PO DAILY [facility] Last Admin: 10/05/19 10:01 Dose: 40 mg Valacyclovir HCl (Valtrex -) 500 mg PO DAILY [facility] Last Admin: 10/05/19 10:01 Dose: 500 mg - Objective Vital Signs: Vital Signs Temperature 98.9 F 10/05/19 10:00 Pulse Rate 94 H 10/05/19 12:00 Respiratory Rate 17 10/05/19 12:00 Blood Pressure 93/54 L 10/05/19 12:00 O2 Sat by Pulse Oximetry (%) 98 10/05/19 07:47 Constitutional: Yes: No Distress, Calm Respiratory: Yes: Regular, CTA Bilaterally Gastrointestinal: Yes: Normal Bowel Sounds, Soft Musculoskeletal: Yes: WNL Extremities: Yes: WNL Neurological: Yes: Alert, Oriented Psychiatric: Yes: Alert, Oriented Labs: CBC, BMP 10/05/19 06:00 10/05/19 06:00 INR, PTT INR 1.16 (0.83-1.09) H 09/20/19 04:16 Assessment/Plan Problem List - Problems (1) Anasarca Code(s): R60.1 - GENERALIZED EDEMA (2) Fluid overload Code(s): E87.70 - FLUID OVERLOAD, UNSPECIFIED (3) Hypoxia Code(s): R09.02 - HYPOXEMIA (4) Weakness Code(s): R53.1 - WEAKNESS (5) ASHD (arteriosclerotic heart disease) Code(s): I25.10 - ATHSCL HEART DISEASE OF [place] CORONARY ARTERY W/O ANG PCTRS (6) Acute exacerbation of CHF (congestive heart failure) Code(s): I50.9 - HEART FAILURE, UNSPECIFIED (7) Acute on chronic systolic CHF (congestive heart failure) Code(s): I50.23 - ACUTE ON CHRONIC SYSTOLIC (CONGESTIVE) HEART FAILURE (8) Adult onset hypothyroidism Code(s): E03.8 - OTHER SPECIFIED HYPOTHYROIDISM (9) Anemia Code(s): D64.9 - ANEMIA, UNSPECIFIED (10) CKD (chronic kidney disease) Code(s): N18.9 - CHRONIC KIDNEY DISEASE, UNSPECIFIED (11) Elevated troponin Code(s): R74.8 - ABNORMAL LEVELS OF OTHER SERUM ENZYMES (12) HLD (hyperlipidemia) Code(s): E78.5 - HYPERLIPIDEMIA, UNSPECIFIED Qualifiers: Hyperlipidemia type: unspecified Qualified Code(s): E78.5 - Hyperlipidemia , unspecified (13) HTN (hypertension) Code(s): I10 - ESSENTIAL (PRIMARY) HYPERTENSION Qualifiers: Hypertension type: unspecified Qualified Code(s): I10 - Essential (primary ) hypertension (14) History of heart artery stent Code(s): Z95.5 - PRESENCE OF CORONARY ANGIOPLASTY IMPLANT AND GRAFT (15) Multiple myeloma Code(s): C90.00 - MULTIPLE MYELOMA NOT HAVING ACHIEVED REMISSION Qualifiers: Multiple myeloma remission status: not in remission Qualified Code(s): C90.00 - Multiple myeloma not having achieved remission uti hypotension Assessment/Plan stop abx monitor off of abx wean from pressors as tolerated rest as per icu cc 40 min
--- NOTE | 2019-10-05 20:58 | PN ---
Progress Note, Physician - Current Medication List Current Medications: Active Medications Acetaminophen (Tylenol -) 650 mg PO Q6H PRN PRN Reason: FEVER Last Admin: 10/04/19 19:53 Dose: 650 mg Allopurinol (Zyloprim -) 300 mg PO DAILY [facility] Last Admin: 10/05/19 10:00 Dose: 300 mg Aspirin (Ecotrin -) 81 mg PO DAILY [facility] Last Admin: 10/05/19 10:00 Dose: 81 mg Atorvastatin Calcium (Lipitor -) 40 mg PO HS [facility] Last Admin: 10/04/19 21:20 Dose: 40 mg Escitalopram Oxalate (Lexapro -) 10 mg PO DAILY [facility] Last Admin: 10/05/19 10:00 Dose: 10 mg Furosemide (Lasix Injection -) 40 mg IVPUSH DAILY [facility] Last Admin: 10/05/19 10:01 Dose: 40 mg Heparin Sodium (Porcine) (Heparin -) 5,000 unit SQ TID [facility] Last Admin: 10/05/19 13:36 Dose: 5,000 unit Norepinephrine Bitartrate 8, (000 mcg/ Dextrose) 500 mls @ 18.75 mls/hr IV TITR [facility]; Protocol Last Titration: 10/05/19 12:00 Dose: 3 mcg/min, 11.25 mls/hr Milrinone Lactate/Dextrose (Milrinone 20mg/100ml Ivpb -) 20,000 mcg in 100 mls @ 4.311 mls/hr IVPB TITR [facility]; Protocol Last Titration: 10/05/19 13:30 Dose: 0.3 mcg/kg/min, 6.466 mls/hr Levothyroxine Sodium (Synthroid -) 75 mcg PO DAILY@0700 [facility] Last Admin: 10/05/19 06:04 Dose: 75 mcg Midodrine (Proamatine -) 5 mg PO TID-MID [facility] Last Admin: 10/05/19 17:01 Dose: 5 mg Pantoprazole Sodium (Protonix -) 40 mg PO DAILY [facility] Last Admin: 10/05/19 10:01 Dose: 40 mg Valacyclovir HCl (Valtrex -) 500 mg PO DAILY [facility] Last Admin: 10/05/19 10:01 Dose: 500 mg - Objective Vital Signs: Vital Signs Temperature 97.6 F 10/05/19 18:00 Pulse Rate 105 H 10/05/19 18:00 Respiratory Rate 20 10/05/19 18:00 Blood Pressure 88/43 L 10/05/19 18:00 O2 Sat by Pulse Oximetry (%) 98 10/05/19 07:47 Labs: CBC, BMP 10/05/19 06:00 10/05/19 06:00 INR, PTT INR 1.16 (0.83-1.09) H 09/20/19 04:16 Problem List - Problems (1) Acute on chronic systolic CHF (congestive heart failure) Code(s): I50.23 - ACUTE ON CHRONIC SYSTOLIC (CONGESTIVE) HEART FAILURE (2) UTI (urinary tract infection) Code(s): N39.0 - URINARY TRACT INFECTION, SITE NOT SPECIFIED (3) HTN (hypertension) Code(s): I10 - ESSENTIAL (PRIMARY) HYPERTENSION Qualifiers: Hypertension type: unspecified Qualified Code(s): I10 - Essential (primary ) hypertension (4) Multiple myeloma Code(s): C90.00 - MULTIPLE MYELOMA NOT HAVING ACHIEVED REMISSION Qualifiers: Multiple myeloma remission status: not in remission Qualified Code(s): C90.00 - Multiple myeloma not having achieved remission (5) HLD (hyperlipidemia) Code(s): E78.5 - HYPERLIPIDEMIA, UNSPECIFIED Qualifiers: Hyperlipidemia type: unspecified Qualified Code(s): E78.5 - Hyperlipidemia , unspecified (6) Hypothyroidism Code(s): E03.9 - HYPOTHYROIDISM, UNSPECIFIED Qualifiers: Hypothyroidism type: acquired Qualified Code(s): E03.9 - Hypothyroidism, unspecified (7) CAD (coronary artery disease) Code(s): I25.10 - ATHSCL HEART DISEASE OF [place] CORONARY ARTERY W/O ANG PCTRS Qualifiers: (8) Depression Code(s): F32.9 - MAJOR DEPRESSIVE DISORDER, SINGLE EPISODE, UNSPECIFIED (9) History of heart artery stent Code(s): Z95.5 - PRESENCE OF CORONARY ANGIOPLASTY IMPLANT AND GRAFT (10) Elevated troponin Code(s): R74.8 - ABNORMAL LEVELS OF OTHER SERUM ENZYMES (11) Diarrhea Code(s): R19.7 - [place], UNSPECIFIED Qualifiers: Diarrhea type: unspecified type Qualified Code(s): R19.7 - Diarrhea, unspecified
[2019-10-05] MEDS: ATORVASTATIN CA 40 MG TABLET (FP) PO SCH (21:00)
[2019-10-06] MEDS: HEPARIN NA (PORCINE) 5,000 UNITS/ML 1ML VIAL SQ SCH (05:45)
[2019-10-06] MEDS: NOREPINEPHRINE BITARTRATE 8,000 MCG in DEXTROSE 5%-WATER - 492 ML IV SCH ×2 (05:46→21:30)
[2019-10-06 06:20] LABS: BASO % 1.9 % (0-2.0); EOS % 1.1 % (0-4.5); HEMATOCRIT 22.4 % (32.4-45.2); HEMOGLOBIN 7.4 GM/dL (10.7-15.3); LYMPH % 25.4 % (8-40); MCH 32.3 pg (25.7-33.7); MCHC 33.2 g/dl (32.0-36.0); MEAN CELL VOLUME 97.3 fl (80-96); MEAN PLT VOLUME 8.7 fl (7.5-11.1); MONO % 9.7 % (3.8-10.2); NEUT % 61.9 % (42.8-82.8); PLATELET COUNT 190 K/MM3 (134-434); WHITE BLOOD COUNT 3.1 K/mm3 (4.0-10.0)
[2019-10-06] MEDS: LEVOTHYROXINE NA 75 MCG TABLET (FP) PO SCH (06:28)
[2019-10-06 06:33] LABS: BILIRUBIN,TOTAL 0.3 mg/dL (0.2-1); BLOOD UREA NITROGEN 36.3 mg/dL (7-18); CALCIUM 8.8 mg/dL (8.5-10.1); CREATININE 0.7 mg/dL (0.55-1.3); POTASSIUM 4.3 mmol/L (3.5-5.1)
[2019-10-06] MEDS: MILRINONE 20MG/100ML IVPB - 20,000 MCG/100 ML ML IVPB SCH ×2 (07:24→17:06)
--- NOTE | 2019-10-06 08:35 | PN ---
Physical Exam: SUBJECTIVE: Patient seen and examined by the bedside. No acute events overnight. OBJECTIVE: Vital Signs Period Temp Pulse Resp BP Sys/Moss Pulse Ox Last 24 Hr 97.6 F-98.9 F 92-112 17-30 76-102/43-64 98-98 GENERAL: AOx3 EYES: ZOILA, EOMI HEENT: Dry mucus membranes LUNGS: Diminished breath sounds B/L HEART: RRR, no rubs or murmurs ABDOMEN: Soft, nontender, not distended EXTREMITIES: 2+ pitting edema B/L NEUROLOGICAL: Motor 4/5, sensations intact SKIN: Warm, dry. Laboratory Results - last 24 hr 10/06/19 10/06/19 05:20 05:20 WBC 3.1 L RBC 2.30 L Hgb 7.4 L Hct 22.4 L MCV 97.3 H MCH 32.3 MCHC 33.2 RDW 16.0 H Plt Count 190 MPV 8.7 Absolute Neuts (auto) 1.9 Neutrophils % 61.9 Lymphocytes % 25.4 Monocytes % 9.7 Eosinophils % 1.1 Basophils % 1.9 Nucleated RBC % 0 Sodium 139 Potassium 4.3 Chloride 104 Carbon Dioxide 28 Anion Gap 7 L BUN 36.3 H Creatinine 0.7 Est GFR (CKD-EPI)AfAm 98.23 Est GFR (CKD-EPI)NonAf 84.75 Random Glucose 101 Calcium 8.8 Total Bilirubin 0.3 AST 36 ALT 51 Alkaline Phosphatase 59 Total Protein 6.0 L Albumin 1.0 L Active Medications Generic Name Dose Route Start Last Admin Trade Name Freq PRN Reason Stop Dose Admin Acetaminophen 650 mg 09/20/19 22:25 10/04/19 19:53 Tylenol - PO 650 mg Q6H PRN Administration FEVER Allopurinol 300 mg 09/21/19 10:00 10/05/19 10:00 Zyloprim - PO 300 mg DAILY [facility] Administration Aspirin 81 mg 09/25/19 10:00 10/05/19 10:00 Ecotrin - PO 81 mg DAILY [facility] Administration Atorvastatin Calcium 40 mg 09/20/19 22:00 10/05/19 21:00 Lipitor - PO 40 mg HS [facility] Administration Escitalopram Oxalate 10 mg 09/21/19 10:00 10/05/19 10:00 Lexapro - PO 10 mg DAILY [facility] Administration Furosemide 40 mg 09/21/19 10:00 10/05/19 10:01 Lasix Injection - IVPUSH 40 mg DAILY [facility] Administration Heparin Sodium (Porcine) 5,000 unit 09/29/19 14:00 10/06/19 05:45 Heparin - SQ 5,000 unit TID [facility] Administration Norepinephrine Bitartrate 8, 500 mls @ 18.75 mls/hr 09/27/19 22:00 10/06/19 08:00 000 mcg/ Dextrose IV 2 mcg/min TITR [facility] 7.5 mls/hr Titration Protocol 5 MCG/MIN Milrinone Lactate/Dextrose 20,000 mcg in 100 mls @ 4.311 mls/hr 10/05/19 11: 00 10/06/19 07:24 Milrinone 20mg/100ml Ivpb - IVPB 0.3 mcg/kg/min TITR [facility] 6.466 mls/hr Administration Protocol 0.2 MCG/KG/MIN Levothyroxine Sodium 75 mcg 09/21/19 07:00 10/06/19 06:28 Synthroid - PO 75 mcg DAILY@0700 [facility] Administration Midodrine 5 mg 10/03/19 19:34 10/05/19 17:01 Proamatine - PO 5 mg TID-MID [facility] Administration Pantoprazole Sodium 40 mg 09/21/19 10:00 10/05/19 10:01 Protonix - PO 40 mg DAILY [facility] Administration Valacyclovir HCl 500 mg 09/21/19 10:00 10/05/19 10:01 Valtrex - PO 500 mg DAILY [facility] Administration ASSESSMENT/PLAN: 73yo F PMH multiple myeloma (currently on treatment), amyloidosis, chronic anemia, hypertension, hyperlipidemia, hypothyroidism, GERD, admitted for UGIB, renal failure, volume overload, transferred to the ICU for hypotension refractory to IVF boluses. #Neuro - AOx3 #Respiratory - CXR: improving effusions - Duonebs as needed - Continue Lasix 40mg IV OD #CVS - Cardiogenic shock: Milrinone drip, Midodrine increased 5 ->10mg PO in order to wean Norepi (RIJ 09/28), MAP target 50-55 - Cardio recs: Spoke with Dr. Bingham, agreed with Milrinone, resume Coreg and Entresto once hemodyanamics and renal fxn stabilize - EKG 09/27: LVH with QRS widening - Continue home meds Aspirin 81mg, Atorvastatin 40mg #Renal - BUN/Cr: 39.8/0.8 -> 37.1/0.6 -> 37.1/0.7 - Nephro recs: Hold Losartan, continue Midodrine and Lasix - Monitor I&Os, UOP, trend Cr #Heme/Onc - Multiple Myeloma: Continue Lokelma, Allopurinol - H&H 8.2 -> 7.4 #ID - ID recs: Stop abx, was previously on Meropenem #Endo - Hx of hypothyroidism: Continue levothyroxine #FEN - Na controlled diet #Prophylaxis - SCDs #Dispo - Continued ICU monitoring Visit type - Emergency Visit Emergency Visit: Yes ED Registration Date: 09/20/19 Care time: The patient presented to the Emergency Department on the above date and was hospitalized for further evaluation of their emergent condition. - New Patient This patient is new to me today: No - Critical Care Critical Care patient: No Total Critical Care Time (in minutes): 38 Critical Care Statement: The care of this patient involved high complexity decision making to prevent further life threatening deterioration of the patient 's condition and/or to evaluate & treat vital organ system(s) failure or risk of failure. ATTENDING PHYSICIAN STATEMENT I saw and evaluated the patient. I reviewed the resident's note and discussed the case with the resident. I agree with the resident's findings and plan as documented. SUBJECTIVE: OBJECTIVE: ASSESSMENT AND PLAN:
[2019-10-06] MEDS ORDERED: PT OWN MED DRAWER 7, Y5N ONE (10:09)
[2019-10-06] MEDS: ASPIRIN COATED 81 MG TABLET.EC PO SCH (10:10)
[2019-10-06] MEDS: valACYclovir HCL 500 MG TABLET (FP) PO SCH (10:10)
[2019-10-06] MEDS: ESCITALOPRAM OXALATE 10 MG TABLET (FP) PO SCH (10:10)
[2019-10-06] MEDS: MIDODRINE HCL 5 MG TABLET PO SCH ×2 (10:10→17:06)
[2019-10-06] MEDS: PANTOPRAZOLE 40 MG TABLET (FP) PO SCH (10:10)
[2019-10-06] MEDS: ALLOPURINOL 300 MG TABLET (FP) PO SCH (10:10)
--- NOTE | 2019-10-06 10:31 | PN ---
Progress Note, Physician Chief Complaint: Pt A&Ox3; feels better (not dyspneic; no dizziness or palpitations; better appetite; no chest pain). No headache ("I get a headache when my blood pressure goes low"). History of Present Illness: 74 year old black female with PMH multiple myeloma (s/p chemotherapy, abdomen- directed radiation Tx), HTN, HLD, CAD s/p coronary artery stenting, GERD, , ? "mild" systolic CHF (now noted severely reduced LVEF on ECHO), on Lasix, rectal hemorrhoids, now presented to ED for diarrhea x2 days associated with generalized weakness, ROGERS. Pt reported she has had loose, watery diarrhea x2 days, and prior to that he had rectal bleeding x2 days (on toilet paper and mixed in stool) that self resolved. She reported she only noticed the bleeding because it was on the toilet paper, as she did not have abdominal or rectal pain. Pt reported generalized weakness and ROGERS, which prompted her to come to the ED. Pt denied nausea, vomiting, fever, abdominal pain, chest pain, increased LE swelling. She reported she believed her lower extremity swelling is actually improving. She also reported noticing a new "rash" to her right hip since last week. - Current Medication List Current Medications: Active Medications Acetaminophen (Tylenol -) 650 mg PO Q6H PRN PRN Reason: FEVER Last Admin: 10/04/19 19:53 Dose: 650 mg Allopurinol (Zyloprim -) 300 mg PO DAILY [facility] Last Admin: 10/06/19 10:10 Dose: 300 mg Aspirin (Ecotrin -) 81 mg PO DAILY [facility] Last Admin: 10/06/19 10:10 Dose: 81 mg Atorvastatin Calcium (Lipitor -) 40 mg PO HS [facility] Last Admin: 10/05/19 21:00 Dose: 40 mg Escitalopram Oxalate (Lexapro -) 10 mg PO DAILY [facility] Last Admin: 10/06/19 10:10 Dose: 10 mg Furosemide (Lasix Injection -) 40 mg IVPUSH DAILY [facility] Last Admin: 10/05/19 10:01 Dose: 40 mg Heparin Sodium (Porcine) (Heparin -) 5,000 unit SQ TID [facility] Last Admin: 10/06/19 05:45 Dose: 5,000 unit Norepinephrine Bitartrate 8, (000 mcg/ Dextrose) 500 mls @ 18.75 mls/hr IV TITR [facility]; Protocol Last Titration: 10/06/19 09:45 Dose: 4 mcg/min, 15 mls/hr Milrinone Lactate/Dextrose (Milrinone 20mg/100ml Ivpb -) 20,000 mcg in 100 mls @ 4.311 mls/hr IVPB TITR [facility]; Protocol Last Admin: 10/06/19 07:24 Dose: 0.3 mcg/kg/min, 6.466 mls/hr Levothyroxine Sodium (Synthroid -) 75 mcg PO DAILY@0700 [facility] Last Admin: 10/06/19 06:28 Dose: 75 mcg Midodrine (Proamatine -) 5 mg PO TID-MID [facility] Last Admin: 10/06/19 10:10 Dose: 5 mg Pantoprazole Sodium (Protonix -) 40 mg PO DAILY [facility] Last Admin: 10/06/19 10:10 Dose: 40 mg Valacyclovir HCl (Valtrex -) 500 mg PO DAILY [facility] Last Admin: 10/06/19 10:10 Dose: 500 mg - Objective Vital Signs: Vital Signs Temperature 97.6 F 10/06/19 06:00 Pulse Rate 98 H 10/06/19 10:00 Respiratory Rate 24 H 10/06/19 10:00 Blood Pressure 82/43 L 10/06/19 10:00 O2 Sat by Pulse Oximetry (%) 95 10/06/19 10:23 Constitutional: Yes: Calm Eyes: Yes: WNL HENT: Yes: WNL Cardiovascular: Yes: Murmur, S1, S2 (split) Respiratory: Yes: Diminished Gastrointestinal: Yes: Soft ...Rectal Exam: Yes: Deferred Genitourinary: No: Anuria Musculoskeletal: Yes: Muscle Weakness Extremities: Yes: Cool Edema: No Peripheral Pulses WNL: No Peripheral Pulses: Left Doralis Pedis: 1+, Right Dorsalis Pedis: 1+ Integumentary: Yes: WNL Neurological: Yes: Alert, Oriented, Weakness Psychiatric: Yes: Alert, Oriented, Other (anxiety) Labs: CBC, BMP 10/06/19 05:20 10/06/19 05:20 INR, PTT INR 1.16 (0.83-1.09) H 09/20/19 04:16 Abnormal Lab Results 12/06/19 12/06/19 12/06/19 05:45 05:45 10:00 RBC 2.14 L Hgb 6.9 L* Hct 21.2 L MCV 98.8 H RDW 15.9 H PTT (Actin FS) Sodium 134 L Potassium 5.4 H BUN 44.1 H Creatinine 1.4 H Random Glucose 152 H AST 86 H ALT Creatine Kinase 259 H Creatine Kinase Index 10.8 H CK-MB (CK-2) 28.2 H Troponin I 7.78 H* Albumin 1.2 L Crossmatch See Detail 10/07/19 10/07/19 10/07/19 12:00 12:20 21:45 RBC Hgb Hct MCV RDW PTT (Actin FS) 72.6 H Sodium 135 L Potassium 5.5 H BUN 42.8 H Creatinine 1.5 H Random Glucose 126 H AST 169 H ALT 67 H Creatine Kinase Creatine Kinase Index CK-MB (CK-2) Troponin I 26.40 H* Albumin 1.1 L Crossmatch - ....Imaging Chest X-ray: Image Reviewed EKG: Image Reviewed Problem List - Problems (1) Weakness Code(s): R53.1 - WEAKNESS (2) ASHD (arteriosclerotic heart disease) Code(s): I25.10 - ATHSCL HEART DISEASE OF [place] CORONARY ARTERY W/O ANG PCTRS (3) Acute on chronic systolic CHF (congestive heart failure) Assessment/Plan: On norepnephrine and milrinone. Periods of hypotension and tahcycardia. Plan: Titrate off norepinephrine if pt remains asymptomatic (keep MAP 45-50; pt has severely reduced LVEF, and is "living" with relatively low BPs). Remains on milrinone; f/u BUN/Cr, electrolytes, daily weight, Is ans Os. Code(s): I50.23 - ACUTE ON CHRONIC SYSTOLIC (CONGESTIVE) HEART FAILURE (4) Adult onset hypothyroidism Assessment/Plan: mildly elevated TSH; normal Free T4. Code(s): E03.8 - OTHER SPECIFIED HYPOTHYROIDISM (5) Anxiety Code(s): F41.9 - ANXIETY DISORDER, UNSPECIFIED (6) Elevated troponin Code(s): R74.8 - ABNORMAL LEVELS OF OTHER SERUM ENZYMES (7) HLD (hyperlipidemia) Assessment/Plan: On statin. LDL elevated in March; f/u lipid profile. Code(s): E78.5 - HYPERLIPIDEMIA, UNSPECIFIED Qualifiers: Hyperlipidemia type: unspecified Qualified Code(s): E78.5 - Hyperlipidemia , unspecified (8) HTN (hypertension) Assessment/Plan: On losartan and furosemide. Would start beta savana if remains stable, even if BP is relatively low-normal , given severity of systolic dysfunction. Addendum: all above medicastions are on hold while pt is hypotensive; presently on both norepinephrine and milrinone). Code(s): I10 - ESSENTIAL (PRIMARY) HYPERTENSION Qualifiers: Hypertension type: unspecified Qualified Code(s): I10 - Essential (primary ) hypertension (9) History of heart artery stent Code(s): Z95.5 - PRESENCE OF CORONARY ANGIOPLASTY IMPLANT AND GRAFT (10) Multiple myeloma Code(s): C90.00 - MULTIPLE MYELOMA NOT HAVING ACHIEVED REMISSION Qualifiers: Multiple myeloma remission status: not in remission Qualified Code(s): C90.00 - Multiple myeloma not having achieved remission (11) Pancytopenia Code(s): D61.818 - OTHER PANCYTOPENIA Assessment/Plan CCU time spent: 40 minutes
[2019-10-06] MEDS: FUROSEMIDE 40 MG/4 ML INJECTABLE VIAL IVPUSH SCH (10:37)
--- NOTE | 2019-10-06 12:02 | PN ---
Progress Note, Physician History of Present Illness: improving says she is feeling better still with cough - Current Medication List Current Medications: Active Medications Acetaminophen (Tylenol -) 650 mg PO Q6H PRN PRN Reason: FEVER Last Admin: 10/04/19 19:53 Dose: 650 mg Allopurinol (Zyloprim -) 300 mg PO DAILY [facility] Last Admin: 10/06/19 10:10 Dose: 300 mg Aspirin (Ecotrin -) 81 mg PO DAILY [facility] Last Admin: 10/06/19 10:10 Dose: 81 mg Atorvastatin Calcium (Lipitor -) 40 mg PO HS [facility] Last Admin: 10/05/19 21:00 Dose: 40 mg Escitalopram Oxalate (Lexapro -) 10 mg PO DAILY [facility] Last Admin: 10/06/19 10:10 Dose: 10 mg Furosemide (Lasix Injection -) 40 mg IVPUSH DAILY [facility] Last Admin: 10/06/19 10:37 Dose: 40 mg Heparin Sodium (Porcine) (Heparin -) 5,000 unit SQ TID [facility] Last Admin: 10/06/19 05:45 Dose: 5,000 unit Norepinephrine Bitartrate 8, (000 mcg/ Dextrose) 500 mls @ 18.75 mls/hr IV TITR [facility]; Protocol Last Titration: 10/06/19 09:45 Dose: 4 mcg/min, 15 mls/hr Milrinone Lactate/Dextrose (Milrinone 20mg/100ml Ivpb -) 20,000 mcg in 100 mls @ 4.311 mls/hr IVPB TITR [facility]; Protocol Last Titration: 10/06/19 10:30 Dose: 0.4 mcg/kg/min, 8.622 mls/hr Levothyroxine Sodium (Synthroid -) 75 mcg PO DAILY@0700 [facility] Last Admin: 10/06/19 06:28 Dose: 75 mcg Midodrine (Proamatine -) 5 mg PO TID-MID [facility] Last Admin: 10/06/19 10:10 Dose: 5 mg Pantoprazole Sodium (Protonix -) 40 mg PO DAILY [facility] Last Admin: 10/06/19 10:10 Dose: 40 mg Valacyclovir HCl (Valtrex -) 500 mg PO DAILY [facility] Last Admin: 10/06/19 10:10 Dose: 500 mg - Objective Vital Signs: Vital Signs Temperature 98.1 F 10/06/19 10:00 Pulse Rate 96 H 10/06/19 10:00 Respiratory Rate 24 H 10/06/19 10:00 Blood Pressure 91/46 L 10/06/19 10:00 O2 Sat by Pulse Oximetry (%) 95 10/06/19 10:23 Constitutional: Yes: No Distress, Calm Cardiovascular: Yes: S1, S2 Respiratory: Yes: Regular, CTA Bilaterally Gastrointestinal: Yes: Normal Bowel Sounds, Soft Musculoskeletal: Yes: WNL Extremities: Yes: WNL Neurological: Yes: Alert, Oriented Psychiatric: Yes: Alert, Oriented Labs: CBC, BMP 10/06/19 05:20 10/06/19 05:20 INR, PTT INR 1.16 (0.83-1.09) H 09/20/19 04:16 Assessment/Plan Problem List - Problems (1) Anasarca Code(s): R60.1 - GENERALIZED EDEMA (2) Fluid overload Code(s): E87.70 - FLUID OVERLOAD, UNSPECIFIED (3) Hypoxia Code(s): R09.02 - HYPOXEMIA (4) Weakness Code(s): R53.1 - WEAKNESS (5) ASHD (arteriosclerotic heart disease) Code(s): I25.10 - ATHSCL HEART DISEASE OF [place] CORONARY ARTERY W/O ANG PCTRS (6) Acute exacerbation of CHF (congestive heart failure) Code(s): I50.9 - HEART FAILURE, UNSPECIFIED (7) Acute on chronic systolic CHF (congestive heart failure) Code(s): I50.23 - ACUTE ON CHRONIC SYSTOLIC (CONGESTIVE) HEART FAILURE (8) Adult onset hypothyroidism Code(s): E03.8 - OTHER SPECIFIED HYPOTHYROIDISM (9) Anemia Code(s): D64.9 - ANEMIA, UNSPECIFIED (10) CKD (chronic kidney disease) Code(s): N18.9 - CHRONIC KIDNEY DISEASE, UNSPECIFIED (11) Elevated troponin Code(s): R74.8 - ABNORMAL LEVELS OF OTHER SERUM ENZYMES (12) HLD (hyperlipidemia) Code(s): E78.5 - HYPERLIPIDEMIA, UNSPECIFIED Qualifiers: Hyperlipidemia type: unspecified Qualified Code(s): E78.5 - Hyperlipidemia , unspecified (13) HTN (hypertension) Code(s): I10 - ESSENTIAL (PRIMARY) HYPERTENSION Qualifiers: Hypertension type: unspecified Qualified Code(s): I10 - Essential (primary ) hypertension (14) History of heart artery stent Code(s): Z95.5 - PRESENCE OF CORONARY ANGIOPLASTY IMPLANT AND GRAFT (15) Multiple myeloma Code(s): C90.00 - MULTIPLE MYELOMA NOT HAVING ACHIEVED REMISSION Qualifiers: Multiple myeloma remission status: not in remission Qualified Code(s): C90.00 - Multiple myeloma not having achieved remission uti hypotension Assessment/Plan continue current mgmt rest as per the team supportive cc40 min if patient starts to cough then will reconsider abx
[2019-10-06] MEDS ORDERED: MIDODRINE HCL 5 MG TABLET PO ONE (12:29)
--- NOTE | 2019-10-06 12:47 | PN ---
Teaching Attending Note Name of Resident: Roger Herr ATTENDING PHYSICIAN STATEMENT I saw and evaluated the patient. I reviewed the resident's note and discussed the case with the resident. I agree with the resident's findings and plan as documented. SUBJECTIVE: Patient seen and examined in the ICU. Remains on levophed drip for hemodynamic support. Denies shortness of breath or chest pain. OBJECTIVE: Intake & Output 10/03/19 10/04/19 10/05/19 10/06/19 23:59 23:59 23:59 23:59 Intake Total 482 654.4 953 261 Output Total 1000 1 Balance 482 654.4 -47 260 Weight 159 lb 158 lb 6.4 oz 160 lb 12.8 oz Last Vital Signs Temp Pulse Resp BP Pulse Ox 98.1 F 107 H 24 H 84/49 L 95 10/06/19 10:00 10/06/19 12:00 10/06/19 12:00 10/06/19 12:00 10/06/19 10:23 Active Medications Acetaminophen (Tylenol -) 650 mg PO Q6H PRN PRN Reason: FEVER Last Admin: 10/04/19 19:53 Dose: 650 mg Allopurinol (Zyloprim -) 300 mg PO DAILY [facility] Last Admin: 10/06/19 10:10 Dose: 300 mg Aspirin (Ecotrin -) 81 mg PO DAILY [facility] Last Admin: 10/06/19 10:10 Dose: 81 mg Atorvastatin Calcium (Lipitor -) 40 mg PO HS [facility] Last Admin: 10/05/19 21:00 Dose: 40 mg Escitalopram Oxalate (Lexapro -) 10 mg PO DAILY [facility] Last Admin: 10/06/19 10:10 Dose: 10 mg Furosemide (Lasix Injection -) 40 mg IVPUSH DAILY [facility] Last Admin: 10/06/19 10:37 Dose: 40 mg Heparin Sodium (Porcine) (Heparin -) 5,000 unit SQ TID [facility] Last Admin: 10/06/19 05:45 Dose: 5,000 unit Norepinephrine Bitartrate 8, (000 mcg/ Dextrose) 500 mls @ 18.75 mls/hr IV TITR [facility]; Protocol Last Titration: 10/06/19 09:45 Dose: 4 mcg/min, 15 mls/hr Milrinone Lactate/Dextrose (Milrinone 20mg/100ml Ivpb -) 20,000 mcg in 100 mls @ 4.311 mls/hr IVPB TITR [facility]; Protocol Last Titration: 10/06/19 10:30 Dose: 0.4 mcg/kg/min, 8.622 mls/hr Levothyroxine Sodium (Synthroid -) 75 mcg PO DAILY@0700 [facility] Last Admin: 10/06/19 06:28 Dose: 75 mcg Midodrine (Proamatine -) 5 mg PO ONCE ONE Stop: 10/06/19 12:30 Midodrine (Proamatine -) 10 mg PO TID-MID [facility] Pantoprazole Sodium (Protonix -) 40 mg PO DAILY [facility] Last Admin: 10/06/19 10:10 Dose: 40 mg Valacyclovir HCl (Valtrex -) 500 mg PO DAILY [facility] Last Admin: 10/06/19 10:10 Dose: 500 mg Gen: NAD at rest Heart: RRR Lung: scattered basilar rhonchi, decreased breath sounds at the bases Abd: soft, nontender Ext: no edema Laboratory Results - last 24 hr 10/06/19 10/06/19 10/06/19 05:20 05:20 10:55 WBC 3.1 L RBC 2.30 L Hgb 7.4 L Hct 22.4 L MCV 97.3 H MCH 32.3 MCHC 33.2 RDW 16.0 H Plt Count 190 MPV 8.7 Absolute Neuts (auto) 1.9 Neutrophils % 61.9 Lymphocytes % 25.4 Monocytes % 9.7 Eosinophils % 1.1 Basophils % 1.9 Nucleated RBC % 0 Sodium 139 Potassium 4.3 Chloride 104 Carbon Dioxide 28 Anion Gap 7 L BUN 36.3 H Creatinine 0.7 Est GFR (CKD-EPI)AfAm 98.23 Est GFR (CKD-EPI)NonAf 84.75 Random Glucose 101 Calcium 8.8 Magnesium 1.9 Total Bilirubin 0.3 AST 36 ALT 51 Alkaline Phosphatase 59 Total Protein 6.0 L Albumin 1.0 L ASSESSMENT AND PLAN: Acute on Chronic Systolic Heart Failure Cardiogenic Shock Acute on Chronic Renal Failure CAD Pneumonia Asthma Multiple Myeloma HTN Hyperlipidemia Hypothyroidism Anemia - continue lasix - Increase Milrinone - Taper off levophed gtt, would tolerate MAP >50 as long as urine output adequate - Monitor urine output, creatinine - Daily weights - completed antibiotics - O2 to keep SpO2 >90% - inhaled bronchodilators as needed - DVT prophylaxis - continue ICU monitoring for pressors Dr Bacon Critical care time spent in reviewing chart, evaluating patient and formulating plan 35 min
--- NOTE | 2019-10-06 16:41 | PN ---
Progress Note, Physician History of Present Illness: Pt seen and examined at bedside. She is awake and alert. She denies shortness of breath. - Current Medication List Current Medications: Active Medications Acetaminophen (Tylenol -) 650 mg PO Q6H PRN PRN Reason: FEVER Last Admin: 10/04/19 19:53 Dose: 650 mg Allopurinol (Zyloprim -) 300 mg PO DAILY [facility] Last Admin: 10/06/19 10:10 Dose: 300 mg Aspirin (Ecotrin -) 81 mg PO DAILY [facility] Last Admin: 10/06/19 10:10 Dose: 81 mg Atorvastatin Calcium (Lipitor -) 40 mg PO HS [facility] Last Admin: 10/05/19 21:00 Dose: 40 mg Escitalopram Oxalate (Lexapro -) 10 mg PO DAILY [facility] Last Admin: 10/06/19 10:10 Dose: 10 mg Furosemide (Lasix Injection -) 40 mg IVPUSH DAILY [facility] Last Admin: 10/06/19 10:37 Dose: 40 mg Norepinephrine Bitartrate 8, (000 mcg/ Dextrose) 500 mls @ 18.75 mls/hr IV TITR [facility]; Protocol Last Titration: 10/06/19 15:36 Dose: 1 mcg/min, 3.75 mls/hr Milrinone Lactate/Dextrose (Milrinone 20mg/100ml Ivpb -) 20,000 mcg in 100 mls @ 4.311 mls/hr IVPB TITR [facility]; Protocol Last Titration: 10/06/19 10:30 Dose: 0.4 mcg/kg/min, 8.622 mls/hr Levothyroxine Sodium (Synthroid -) 75 mcg PO DAILY@0700 [facility] Last Admin: 10/06/19 06:28 Dose: 75 mcg Midodrine (Proamatine -) 10 mg PO TID-MID [facility] Pantoprazole Sodium (Protonix -) 40 mg PO DAILY [facility] Last Admin: 10/06/19 10:10 Dose: 40 mg Valacyclovir HCl (Valtrex -) 500 mg PO DAILY [facility] Last Admin: 10/06/19 10:10 Dose: 500 mg - Objective Vital Signs: Vital Signs Temperature 98 F 10/06/19 14:00 Pulse Rate 109 H 10/06/19 16:00 Respiratory Rate 25 H 10/06/19 16:00 Blood Pressure 88/47 L 10/06/19 16:00 O2 Sat by Pulse Oximetry (%) 95 10/06/19 10:23 Constitutional: Yes: Calm Eyes: Yes: Conjunctiva Clear HENT: Yes: Atraumatic Neck: Yes: Supple Cardiovascular: Yes: S1, S2 Respiratory: Yes: CTA Bilaterally, On Nasal O2 Gastrointestinal: Yes: Normal Bowel Sounds, Soft Genitourinary: Yes: WNL Musculoskeletal: Yes: WNL Edema: No Neurological: Yes: Oriented Psychiatric: Yes: Oriented Labs: CBC, BMP 10/06/19 05:20 10/06/19 05:20 INR, PTT INR 1.16 (0.83-1.09) H 09/20/19 04:16 Assessment/Plan Current Medications Generic Name Dose Route Start Last Admin Trade Name Freq PRN Reason Stop Dose Admin Acetaminophen 650 mg 09/20/19 22:25 10/04/19 19:53 Tylenol - PO 650 mg Q6H PRN Administration FEVER Allopurinol 300 mg 09/21/19 10:00 10/06/19 10:10 Zyloprim - PO 300 mg DAILY [facility] Administration Aspirin 81 mg 09/25/19 10:00 10/06/19 10:10 Ecotrin - PO 81 mg DAILY [facility] Administration Atorvastatin Calcium 40 mg 09/20/19 22:00 10/05/19 21:00 Lipitor - PO 40 mg HS [facility] Administration Escitalopram Oxalate 10 mg 09/21/19 10:00 10/06/19 10:10 Lexapro - PO 10 mg DAILY [facility] Administration Furosemide 40 mg 09/21/19 10:00 10/06/19 10:37 Lasix Injection - IVPUSH 40 mg DAILY [facility] Administration Norepinephrine Bitartrate 8, 500 mls @ 18.75 mls/hr 09/27/19 22:00 10/06/19 15:36 000 mcg/ Dextrose IV 1 mcg/min TITR [facility] 3.75 mls/hr Titration Protocol 5 MCG/MIN Milrinone Lactate/Dextrose 20,000 mcg in 100 mls @ 4.311 mls/hr 10/05/19 11: 00 10/06/19 10:30 Milrinone 20mg/100ml Ivpb - IVPB 0.4 mcg/kg/min TITR [facility] 8.622 mls/hr Titration Protocol 0.2 MCG/KG/MIN Levothyroxine Sodium 75 mcg 09/21/19 07:00 10/06/19 06:28 Synthroid - PO 75 mcg DAILY@0700 [facility] Administration Midodrine 10 mg 10/06/19 18:00 Proamatine - PO TID-MID [facility] Pantoprazole Sodium 40 mg 09/21/19 10:00 10/06/19 10:10 Protonix - PO 40 mg DAILY [facility] Administration Valacyclovir HCl 500 mg 09/21/19 10:00 10/06/19 10:10 Valtrex - PO 500 mg DAILY [facility] Administration Impression 1. proteinuria 2. multiple myeloma 3. amyloid 4. dizziness 5. hypotension 6. HLD 7. hypothyroidism 8. anemia 9. CKD 10. fluid overload 11. hypotension Plan - monitor renal function - cont lasix - monitor bp - increase dose of midodrine - discussed with icu team - hold losartan (was on it to help with proteinuria) - monitor bp
--- NOTE | 2019-10-06 18:41 | PN ---
Progress Note (short form) - Note Progress Note: Patient seen and examiend Shortness of breath improved renal function improved Last Vital Signs Temp Pulse Resp BP Pulse Ox 97.6 F 109 H 20 86/51 L 95 10/06/19 18:00 10/06/19 18:01 10/06/19 18:00 10/06/19 18:01 10/06/19 10:23 Cor: RSR, No murmurs, No gallops Lungs: decreased at bases Abd: Soft, Normal bowel sounds, No organomegaly Ext:No significant edema Abnormal Lab Results 10/06/19 10/06/19 05:20 05:20 WBC 3.1 L RBC 2.30 L Hgb 7.4 L Hct 22.4 L MCV 97.3 H RDW 16.0 H Anion Gap 7 L BUN 36.3 H Total Protein 6.0 L Albumin 1.0 L Active Medications Generic Name Dose Route Start Last Admin Trade Name Freq PRN Reason Stop Dose Admin Acetaminophen 650 mg 09/20/19 22:25 10/04/19 19:53 Tylenol - PO 650 mg Q6H PRN Administration FEVER Allopurinol 300 mg 09/21/19 10:00 10/06/19 10:10 Zyloprim - PO 300 mg DAILY [facility] Administration Aspirin 81 mg 09/25/19 10:00 10/06/19 10:10 Ecotrin - PO 81 mg DAILY [facility] Administration Atorvastatin Calcium 40 mg 09/20/19 22:00 10/05/19 21:00 Lipitor - PO 40 mg HS [facility] Administration Escitalopram Oxalate 10 mg 09/21/19 10:00 10/06/19 10:10 Lexapro - PO 10 mg DAILY [facility] Administration Furosemide 40 mg 09/21/19 10:00 10/06/19 10:37 Lasix Injection - IVPUSH 40 mg DAILY [facility] Administration Norepinephrine Bitartrate 8, 500 mls @ 18.75 mls/hr 09/27/19 22:00 10/06/19 18:01 000 mcg/ Dextrose IV 0 mcg/min TITR [facility] 0 mls/hr Titration Protocol 5 MCG/MIN Milrinone Lactate/Dextrose 20,000 mcg in 100 mls @ 4.311 mls/hr 10/05/19 11: 00 10/06/19 17:06 Milrinone 20mg/100ml Ivpb - IVPB 0.4 mcg/kg/min TITR [facility] 8.622 mls/hr Administration Protocol 0.2 MCG/KG/MIN Levothyroxine Sodium 75 mcg 09/21/19 07:00 10/06/19 06:28 Synthroid - PO 75 mcg DAILY@0700 [facility] Administration Midodrine 10 mg 10/06/19 18:00 10/06/19 17:06 Proamatine - PO 10 mg TID-MID [facility] Administration Pantoprazole Sodium 40 mg 09/21/19 10:00 10/06/19 10:10 Protonix - PO 40 mg DAILY [facility] Administration Valacyclovir HCl 500 mg 09/21/19 10:00 10/06/19 10:10 Valtrex - PO 500 mg DAILY [facility] Administration A/P Multiple Myeloma Amyloid CHF Anemia Fever LLL atelectasis vs infiltrate UTI On lasix tapering levophed on midodrine/milrinone creatinine improved monitoring cbc/cmp icu monitoring for CHF
[2019-10-06] MEDS ORDERED: ONDANSETRON 4 MG/2 ML VIAL IVPUSH ONE (19:53)
[2019-10-06] MEDS ORDERED: ASPIRIN 81 MG CHEWABLE TABLETS PO ONE (20:36)
[2019-10-06] MEDS ORDERED: MAG HYDROX/AL HYDROX/SIMETH 30 ML UNIT-DOSE CUP PO ONE (20:54)
[2019-10-06] MEDS ORDERED: PANTOPRAZOLE SODIUM 40 MG VIAL IVPUSH ONE (20:54)
[2019-10-06] MEDS: ATORVASTATIN CA 40 MG TABLET (FP) PO SCH (21:01)
[2019-10-06] MEDS ORDERED: ACETAMINOPHEN 1000 MG/100 ML VIAL (NON FORMULARY) IVPB ONE (21:07)
[2019-10-06 21:32] LABS: EOS % 1.1 % (0-4.5); HEMATOCRIT 21.7 % (32.4-45.2); HEMOGLOBIN 7.2 GM/dL (10.7-15.3); LYMPH % 28.2 % (8-40); MCH 32.5 pg (25.7-33.7); MEAN CELL VOLUME 98.4 fl (80-96); MEAN PLT VOLUME 8.4 fl (7.5-11.1); MONO % 7.9 % (3.8-10.2); NEUT % 61.8 % (42.8-82.8); PLATELET COUNT 190 K/MM3 (134-434); RBC 2.21 M/mm3 (3.60-5.2); RDW 15.8 % (11.6-15.6)
[2019-10-06 21:59] LABS: BILIRUBIN,TOTAL 0.1 mg/dL (0.2-1); BLOOD UREA NITROGEN 39.2 mg/dL (7-18); CALCIUM 8.7 mg/dL (8.5-10.1); CREATININE 0.9 mg/dL (0.55-1.3); MAGNESIUM 1.8 mg/dL (1.8-2.4); PHOSPHOROUS 2.8 mg/dL (2.5-4.9); POTASSIUM 4.7 mmol/L (3.5-5.1); TOT PROT 6.2 g/dl (6.4-8.2)
[2019-10-06] MEDS: IPRATROPIUM BR 0.02% 0.5 MG/2.5 ML VIAL.NEB. NEB PRN (23:11)
--- NOTE | 2019-10-06 23:24 | PN ---
Progress Note, Physician - Current Medication List Current Medications: Active Medications Acetaminophen (Tylenol -) 650 mg PO Q6H PRN PRN Reason: FEVER Last Admin: 10/04/19 19:53 Dose: 650 mg Allopurinol (Zyloprim -) 300 mg PO DAILY [facility] Last Admin: 10/06/19 10:10 Dose: 300 mg Aspirin (Ecotrin -) 81 mg PO DAILY [facility] Last Admin: 10/06/19 10:10 Dose: 81 mg Atorvastatin Calcium (Lipitor -) 40 mg PO HS [facility] Last Admin: 10/06/19 21:01 Dose: 40 mg Escitalopram Oxalate (Lexapro -) 10 mg PO DAILY [facility] Last Admin: 10/06/19 10:10 Dose: 10 mg Furosemide (Lasix Injection -) 40 mg IVPUSH DAILY [facility] Last Admin: 10/06/19 10:37 Dose: 40 mg Norepinephrine Bitartrate 8, (000 mcg/ Dextrose) 500 mls @ 18.75 mls/hr IV TITR [facility]; Protocol Last Titration: 10/06/19 21:30 Dose: 4 mcg/min, 15 mls/hr Milrinone Lactate/Dextrose (Milrinone 20mg/100ml Ivpb -) 20,000 mcg in 100 mls @ 4.311 mls/hr IVPB TITR [facility]; Protocol Last Admin: 10/06/19 17:06 Dose: 0.4 mcg/kg/min, 8.622 mls/hr Ipratropium [place] (Atrovent 0.02% Nebulizer -) 1 amp NEB RQID PRN PRN Reason: Dyspnea Last Admin: 10/06/19 23:11 Dose: 1 amp Levothyroxine Sodium (Synthroid -) 75 mcg PO DAILY@0700 [facility] Last Admin: 10/06/19 06:28 Dose: 75 mcg Midodrine (Proamatine -) 10 mg PO TID-MID [facility] Last Admin: 10/06/19 17:06 Dose: 10 mg Pantoprazole Sodium (Protonix -) 40 mg PO DAILY [facility] Last Admin: 10/06/19 10:10 Dose: 40 mg Valacyclovir HCl (Valtrex -) 500 mg PO DAILY [facility] Last Admin: 10/06/19 10:10 Dose: 500 mg - Objective Vital Signs: Vital Signs Temperature 98.1 F 10/06/19 22:00 Pulse Rate 126 H 10/06/19 22:00 Respiratory Rate 30 H 10/06/19 22:00 Blood Pressure 82/51 L 10/06/19 22:00 O2 Sat by Pulse Oximetry (%) 95 10/06/19 21:00 Labs: CBC, BMP 10/06/19 20:45 10/06/19 20:45 INR, PTT INR 1.16 (0.83-1.09) H 09/20/19 04:16 Problem List - Problems (1) Acute on chronic systolic CHF (congestive heart failure) Code(s): I50.23 - ACUTE ON CHRONIC SYSTOLIC (CONGESTIVE) HEART FAILURE (2) UTI (urinary tract infection) Code(s): N39.0 - URINARY TRACT INFECTION, SITE NOT SPECIFIED (3) HTN (hypertension) Code(s): I10 - ESSENTIAL (PRIMARY) HYPERTENSION Qualifiers: Hypertension type: unspecified Qualified Code(s): I10 - Essential (primary ) hypertension (4) Multiple myeloma Code(s): C90.00 - MULTIPLE MYELOMA NOT HAVING ACHIEVED REMISSION Qualifiers: Multiple myeloma remission status: not in remission Qualified Code(s): C90.00 - Multiple myeloma not having achieved remission (5) HLD (hyperlipidemia) Code(s): E78.5 - HYPERLIPIDEMIA, UNSPECIFIED Qualifiers: Hyperlipidemia type: unspecified Qualified Code(s): E78.5 - Hyperlipidemia , unspecified (6) Hypothyroidism Code(s): E03.9 - HYPOTHYROIDISM, UNSPECIFIED Qualifiers: Hypothyroidism type: acquired Qualified Code(s): E03.9 - Hypothyroidism, unspecified (7) CAD (coronary artery disease) Code(s): I25.10 - ATHSCL HEART DISEASE OF [place] CORONARY ARTERY W/O ANG PCTRS Qualifiers: (8) Depression Code(s): F32.9 - MAJOR DEPRESSIVE DISORDER, SINGLE EPISODE, UNSPECIFIED (9) History of heart artery stent Code(s): Z95.5 - PRESENCE OF CORONARY ANGIOPLASTY IMPLANT AND GRAFT (10) Elevated troponin Code(s): R74.8 - ABNORMAL LEVELS OF OTHER SERUM ENZYMES (11) Diarrhea Code(s): R19.7 - DIARRHEA, UNSPECIFIED Qualifiers: Diarrhea type: unspecified type Qualified Code(s): R19.7 - Diarrhea, unspecified
[2019-10-07] MEDS ORDERED: IPRATROPIUM BR 0.02% 0.5 MG/2.5 ML VIAL.NEB. NEB PRN (01:17)
[2019-10-07] MEDS ORDERED: ADENOSINE 6 MG/2 ML VIAL IVPUSH ONE ×2 (01:50→02:02)
[2019-10-07] MEDS ORDERED: AMIODARONE HCL 150 MG/3 ML VIAL IVPUSH ONE (02:14)
[2019-10-07] MEDS ORDERED: AMIODARONE IN DEXTROSE,ISO-OSM 360 MG/200 ML BAG IVPB ONE (02:18)
--- NOTE | 2019-10-07 03:50 | PN ---
Progress Note (short form) - Note Progress Note: At approximately 8:00PM, patient was prepped for central line removal and placed in Trendelenberg position. Before the line could be removed, she became agitated and began to complain of nausea and difficulty breathing. She was placed in a seated position, after which she had one episode of emesis consisting mostly of saliva. She was administered 4mg Zofran, 40mg Protonix, and Mylanta for symptomatic relief. Shortly afterwards, she endorsed non-radiating, non-reproducible left sided chest pain, 6/10 in intensity. Aspirin was administered, cardiac profile was ordered, and EKG was performed. When compared to previous EKG on 09/28, it showed non specific changes in V1 and V2. Troponin was 0.14. Her chest pain resolved, however, she became hypotensive and MAP dropped to 40s, after which Norepinephrine was re-started. Decision was made to place a LIJ central line for continued pressor support, and she was placed on NRB mask. [place] through line placement, patient complained of SOB, removed sterile drapes, and sat up. O2 sat dropped to 80s, and she was administered Ipratropium treatment and placed on High Flow. Second troponin was 1.36, and third was 3.95. Call was placed to Dr. Burgess , who recommended starting Heparin infusion, continuing statin, and weaning off Norepi, and restricting fluid intake. Heparin infusion was started.
[2019-10-07] MEDS ORDERED: HEPARIN NA (PORCINE) 5,000 UNITS/ML 1ML VIAL IVPUSH PRN ×2 (04:04)
[2019-10-07] MEDS: HEPARIN INFUSION - 25,000 UNITS/500 ML INFUS.BAG IVPB SCH ×2 (04:26→17:40)
[2019-10-07 04:28] LABS: INR 0.99 (0.83-1.09); PROTHROMBIN TIME (PATIENT) 11.7 SEC (9.7-13.0)
[2019-10-07 04:30] LABS: ACTIVATED PTT 33.7 SECONDS (25.2-36.5)
[2019-10-07 06:15] LABS: BASO % 0.3 % (0-2.0); HEMATOCRIT 21.2 % (32.4-45.2); LYMPH % 10.6 % (8-40); MCH 32.3 pg (25.7-33.7); MCHC 32.7 g/dl (32.0-36.0); MEAN CELL VOLUME 98.8 fl (80-96); MEAN PLT VOLUME 8.8 fl (7.5-11.1); MONO % 7.4 % (3.8-10.2); NEUT % 81.7 % (42.8-82.8); PLATELET COUNT 189 K/MM3 (134-434); RBC 2.14 M/mm3 (3.60-5.2); RDW 15.9 % (11.6-15.6)
[2019-10-07] MEDS: MILRINONE 20MG/100ML IVPB - 20,000 MCG/100 ML ML IVPB SCH ×3 (06:25→22:18)
[2019-10-07 06:35] LABS: HEMOGLOBIN 6.9 GM/dL (10.7-15.3)
[2019-10-07] MEDS: LEVOTHYROXINE NA 75 MCG TABLET (FP) PO SCH (06:43)
[2019-10-07 06:45] LABS: ALBUMIN 1.2 g/dl (3.4-5.0); BILIRUBIN,TOTAL 0.3 mg/dL (0.2-1); BLOOD UREA NITROGEN 44.1 mg/dL (7-18); CALCIUM 8.7 mg/dL (8.5-10.1); CREATININE 1.4 mg/dL (0.55-1.3); POTASSIUM 5.4 mmol/L (3.5-5.1); TOT PROT 6.6 g/dl (6.4-8.2)
[2019-10-07] MEDS: NOREPINEPHRINE BITARTRATE 8,000 MCG in DEXTROSE 5%-WATER - 492 ML IV SCH ×3 (07:35→22:39)
--- NOTE | 2019-10-07 07:50 | PN ---
Physical Exam: SUBJECTIVE: Patient seen and examined. Denies chest pain this morning. Yesterday , noted to have SOB, chest pain, nonspecific EKG changes, elevated troponin, found to have IN. Cardiology was consulted recommended to start heparin drip and attempt to wean of Levophed. Spoke with cardiology this morning who stated to continue current management, continue to attempt to wean off of Levophed. Dr. Randhawa will speak with his colleagues at tertiary [facility] and see if patient would benefit from transfer. At this time patient is not a candidate for cardiac cath. This morning patient denies chest pain, SOB, abd pain. Complains of nausea. Discussed goals of care with patient who stated she would like to be full code. OBJECTIVE: Vital Signs Period Temp Pulse Resp BP Sys/[place] Pulse Ox Last 24 Hr 97.6 F-98.1 F 94-136 18-33 63-97/38-52 95-100 GENERAL: The patient is awake, alert, and fully oriented, in no acute distress. HEAD: Normal with no signs of trauma. EYES: EOMI, no ptosis, no scleral icterus ENT: dry mucous membranes NECK: Trachea midline LUNGS: Breath sounds equal, clear to auscultation bilaterally, no wheezes, no crackles, no accessory muscle use. HEART: Regular rate and rhythm, S1, S2 without murmur, rub or gallop. ABDOMEN: Soft, nontender, nondistended, normoactive bowel sounds, no guarding EXTREMITIES: 2+ non pitting edema of bilateral extremities, 2+ pulses, warm, well-perfused NEUROLOGICAL: Normal speech, gait not observed. SKIN: Warm, dry Laboratory Results - last 24 hr 10/06/19 10/06/19 10/06/19 10:55 20:45 20:45 WBC 4.0 RBC 2.21 L Hgb 7.2 L Hct 21.7 L MCV 98.4 H MCH 32.5 MCHC 33.0 RDW 15.8 H Plt Count 190 MPV 8.4 Absolute Neuts (auto) 2.5 Neutrophils % 61.8 Lymphocytes % 28.2 Monocytes % 7.9 Eosinophils % 1.1 Basophils % 1.0 Nucleated RBC % 0 PT with INR INR PTT (Actin FS) D-Dimer Sodium 137 Potassium 4.7 Chloride 103 Carbon Dioxide 26 Anion Gap 7 L BUN 39.2 H Creatinine 0.9 Est GFR (CKD-EPI)AfAm 72.49 Est GFR (CKD-EPI)NonAf 62.55 Random Glucose 109 H Calcium 8.7 Phosphorus 2.8 Magnesium 1.9 1.8 Total Bilirubin 0.1 L AST 31 ALT 39 Alkaline Phosphatase 67 Creatine Kinase 41 Creatine Kinase Index CK-MB (CK-2) Troponin I 0.14 H Total Protein 6.2 L Albumin 1.0 L 10/06/19 10/07/19 10/07/19 23:55 02:55 02:55 WBC RBC Hgb Hct MCV MCH MCHC RDW Plt Count MPV Absolute Neuts (auto) Neutrophils % Lymphocytes % Monocytes % Eosinophils % Basophils % Nucleated RBC % PT with INR 11.70 INR 0.99 PTT (Actin FS) 33.7 D-Dimer Sodium Potassium Chloride Carbon Dioxide Anion Gap BUN Creatinine Est GFR (CKD-EPI)AfAm Est GFR (CKD-EPI)NonAf Random Glucose Calcium Phosphorus Magnesium Total Bilirubin AST ALT Alkaline Phosphatase Creatine Kinase 178 Creatine Kinase Index 11.0 H CK-MB (CK-2) 19.6 H Troponin I 1.36 H* 3.95 H* Total Protein Albumin 10/07/19 10/07/19 10/07/19 02:55 05:45 05:45 WBC 5.0 RBC 2.14 L Hgb 6.9 L* Hct 21.2 L MCV 98.8 H MCH 32.3 MCHC 32.7 RDW 15.9 H Plt Count 189 MPV 8.8 Absolute Neuts (auto) 4.0 Neutrophils % 81.7 D Lymphocytes % 10.6 D Monocytes % 7.4 Eosinophils % 0.0 D Basophils % 0.3 Nucleated RBC % 0 PT with INR INR PTT (Actin FS) D-Dimer 3730 H Sodium 134 L Potassium 5.4 H Chloride 100 Carbon Dioxide 24 Anion Gap 10 BUN 44.1 H Creatinine 1.4 H Est GFR (CKD-EPI)AfAm 42.49 Est GFR (CKD-EPI)NonAf 36.66 Random Glucose 152 H Calcium 8.7 Phosphorus Magnesium Total Bilirubin 0.3 AST 86 H ALT 44 Alkaline Phosphatase 64 Creatine Kinase 259 H Creatine Kinase Index 10.8 H CK-MB (CK-2) 28.2 H Troponin I 7.78 H* Total Protein 6.6 Albumin 1.2 L Active Medications Generic Name Dose Route Start Last Admin Trade Name Freq PRN Reason Stop Dose Admin Acetaminophen 650 mg 09/20/19 22:25 10/04/19 19:53 Tylenol - PO 650 mg Q6H PRN Administration FEVER Allopurinol 300 mg 09/21/19 10:00 10/06/19 10:10 Zyloprim - PO 300 mg DAILY [facility] Administration Aspirin 81 mg 09/25/19 10:00 10/06/19 10:10 Ecotrin - PO 81 mg DAILY [facility] Administration Atorvastatin Calcium 40 mg 09/20/19 22:00 10/06/19 21:01 Lipitor - PO 40 mg HS [facility] Administration Escitalopram Oxalate 10 mg 09/21/19 10:00 10/06/19 10:10 Lexapro - PO 10 mg DAILY [facility] Administration Furosemide 40 mg 09/21/19 10:00 10/06/19 10:37 Lasix Injection - IVPUSH 40 mg DAILY [facility] Administration Heparin Sodium (Porcine) 1,000 unit 10/07/19 04:04 Heparin - IVPUSH PRN PRN APTT 40-49 Heparin Sodium (Porcine) 5,000 unit 10/07/19 04:04 Heparin - IVPUSH PRN PRN APTT < 40 Norepinephrine Bitartrate 8, 500 mls @ 18.75 mls/hr 09/27/19 22:00 10/07/19 07:35 000 mcg/ Dextrose IV 10 mcg/min TITR [facility] 37.5 mls/hr Administration Protocol 5 MCG/MIN Milrinone Lactate/Dextrose 20,000 mcg in 100 mls @ 4.311 mls/hr 10/05/19 11: 00 10/07/19 06:25 Milrinone 20mg/100ml Ivpb - IVPB 0.3 mcg/kg/min TITR [facility] 6.466 mls/hr Administration Protocol 0.2 MCG/KG/MIN Amiodarone HCl/Dextrose 360 mg in 200 mls @ 11.111 mls/hr 10/07/19 08:30 Nexterone 360 Mg/200 Ml Bag IVPB ASDIR [facility] Protocol Amiodarone HCl/Dextrose 360 mg in 200 mls @ 33.333 mls/hr 10/07/19 02:18 04/20 02:40 Nexterone 360 Mg/200 Ml Bag IVPB 10/07/19 08:17 33.333 mls/hr ONCE ONE Administration Protocol 1 MG/MIN Heparin Sodium/Dextrose 25,000 units in 500 mls @ 20 mls/hr 10/07/19 04:15 04:26 Heparin Infusion - IVPB 1,000 units/hr TITR [facility] 20 mls/hr Administration Protocol 1,000 UNITS/HR Ipratropium [place] 1 amp 10/06/19 22:27 10/06/19 23:11 Atrovent 0.02% Nebulizer - NEB 1 amp RQID PRN Administration Dyspnea Ipratropium [place] 1 amp 10/07/19 01:17 10/07/19 01:32 Atrovent 0.02% Nebulizer - NEB 1 amp Q1H PRN Administration WHEEZING Levothyroxine Sodium 75 mcg 09/21/19 07:00 10/07/19 06:43 Synthroid - PO 75 mcg DAILY@0700 [facility] Administration Midodrine 10 mg 10/06/19 18:00 10/06/19 17:06 Proamatine - PO 10 mg TID-MID [facility] Administration Pantoprazole Sodium 40 mg 09/21/19 10:00 10/06/19 10:10 Protonix - PO 40 mg DAILY [facility] Administration Valacyclovir HCl 500 mg 09/21/19 10:00 10/06/19 10:10 Valtrex - PO 500 mg DAILY [facility] Administration ASSESSMENT/PLAN: 73 y/o/f with PMHx of multiple myeloma (currently on treatment), amyloidosis, chronic anemia, hypertension, hyperlipidemia, hypothyroidism, GERD, admitted for UGIB, renal failure, volume overload, transferred to the ICU for hypotension refractory to IVF boluses. #Neuro - AAOx3 #Cardiovascular - Cardiogenic shock: Milrinone drip, 10mg PO. Attempt to wean off Levophed. MAP target 50-55 - Cardio recs: Continue Heparin drip, attempt to wean off Levophed, will see if patient will benefit from transfer to tertiary care center - Continue home meds Aspirin 81mg, Atorvastatin 40mg #Pulm - CXR: worsening progressive changes - Duonebs as needed - Continue Lasix 40mg IV OD #Renal - BUN/Cr: 39.8/0.8 -> 37.1/0.6 -> 37.1/0.7 -> 42.8/1.5 - Renal function worsening, likely from hypotension - Nephro recs: Hold Losartan, continue Midodrine and Lasix - Monitor I&Os, UOP, trend Cr - Hyperkalemia - ordered Duoneb, D50, Kayexalate. Monitor with repeat BMP. Monitor for signs of arrhythmia, EKG changes #Heme/Onc - Multiple Myeloma: Continue Lokelma, Allopurinol - H&H 8.2 -> 7.4 -> 6.9. Transfusing 1unit PRBC. Monitor with repeat BMP. Target Hgb 8 #ID - ID recs: Stop abx, was previously on Meropenem #Endo - Hx of hypothyroidism - Continue levothyroxine #FEN - Na controlled diet #Prophylaxis - SCDs - Heparin drip #Dispo - ICU monitoring - Full code status Visit type - Emergency Visit Emergency Visit: Yes ED Registration Date: 09/20/19 Care time: The patient presented to the Emergency Department on the above date and was hospitalized for further evaluation of their emergent condition. - New Patient This patient is new to me today: Yes Date on this admission: 10/07/19 - Critical Care Critical Care patient: Yes Total Critical Care Time (in minutes): 36 Critical Care Statement: The care of this patient involved high complexity decision making to prevent further life threatening deterioration of the patient 's condition and/or to evaluate & treat vital organ system(s) failure or risk of failure. ATTENDING PHYSICIAN STATEMENT I saw and evaluated the patient. I reviewed the resident's note and discussed the case with the resident. I agree with the resident's findings and plan as documented. SUBJECTIVE: OBJECTIVE: ASSESSMENT AND PLAN:
[2019-10-07] MEDS: AMIODARONE IN DEXTROSE,ISO-OSM 360 MG/200 ML BAG IVPB SCH ×4 (08:59→17:41)
[2019-10-07] MEDS ORDERED: AMIODARONE IN DEXTROSE,ISO-OSM 360 MG/200 ML BAG IVPB SCH (09:15)
--- NOTE | 2019-10-07 11:17 | PN ---
Teaching Attending Note Name of Resident: Emma Calero ATTENDING PHYSICIAN STATEMENT I saw and evaluated the patient. I reviewed the resident's note and discussed the case with the resident. I agree with the resident's findings and plan as documented. SUBJECTIVE: Patient seen and examined in the ICU. Overall worsening. Levophed drip increased to 10mcq. Remains on Milrinone and Amiodarone. ARF noted. Denies shortness of breath or chest pain. CXR: Worsening bilateral pulmonary vascular congestion OBJECTIVE: Intake & Output 10/04/19 10/05/19 10/06/19 10/07/19 23:59 23:59 23:59 23:59 Intake Total 654.4 953 1205.9 619.1 Output Total 1000 1 Balance 654.4 -47 1204.9 619.1 Weight 158 lb 6.4 oz 160 lb 12.8 oz 159 lb 9.6 oz Last Vital Signs Temp Pulse Resp BP Pulse Ox 98.1 F 94 H 25 H 66/45 L 97 10/07/19 06:00 10/07/19 08:00 10/07/19 08:00 10/07/19 08:00 10/07/19 08:25 Active Medications Acetaminophen (Tylenol -) 650 mg PO Q6H PRN PRN Reason: FEVER Last Admin: 10/04/19 19:53 Dose: 650 mg Allopurinol (Zyloprim -) 300 mg PO DAILY [facility] Last Admin: 10/06/19 10:10 Dose: 300 mg Aspirin (Ecotrin -) 81 mg PO DAILY [facility] Last Admin: 10/06/19 10:10 Dose: 81 mg Atorvastatin Calcium (Lipitor -) 40 mg PO HS [facility] Last Admin: 10/06/19 21:01 Dose: 40 mg Escitalopram Oxalate (Lexapro -) 10 mg PO DAILY [facility] Last Admin: 10/06/19 10:10 Dose: 10 mg Furosemide (Lasix Injection -) 40 mg IVPUSH DAILY [facility] Last Admin: 10/06/19 10:37 Dose: 40 mg Heparin Sodium (Porcine) (Heparin -) 1,000 unit IVPUSH PRN PRN PRN Reason: APTT 40-49 Heparin Sodium (Porcine) (Heparin -) 5,000 unit IVPUSH PRN PRN PRN Reason: APTT < 40 Norepinephrine Bitartrate 8, (000 mcg/ Dextrose) 500 mls @ 18.75 mls/hr IV TITR [facility]; Protocol Last Admin: 10/07/19 07:35 Dose: 10 mcg/min, 37.5 mls/hr Milrinone Lactate/Dextrose (Milrinone 20mg/100ml Ivpb -) 20,000 mcg in 100 mls @ 4.311 mls/hr IVPB TITR [facility]; Protocol Last Titration: 10/07/19 10:01 Dose: 0.3 mcg/kg/min, 6.466 mls/hr Heparin Sodium/Dextrose (Heparin Infusion -) 25,000 units in 500 mls @ 20 mls/ hr IVPB TITR [facility]; Protocol Last Admin: 10/07/19 04:26 Dose: 1,000 units/hr, 20 mls/hr Amiodarone HCl/Dextrose (Nexterone 360 Mg/200 Ml Bag) 360 mg in 200 mls @ 16.667 mls/hr IVPB ASDIR [facility]; Protocol Ipratropium [place] (Atrovent 0.02% Nebulizer -) 1 amp NEB RQID PRN PRN Reason: Dyspnea Last Admin: 10/06/19 23:11 Dose: 1 amp Ipratropium [place] (Atrovent 0.02% Nebulizer -) 1 amp NEB Q1H PRN PRN Reason: WHEEZING Last Admin: 10/07/19 01:32 Dose: 1 amp Levothyroxine Sodium (Synthroid -) 75 mcg PO DAILY@0700 [facility] Last Admin: 10/07/19 06:43 Dose: 75 mcg Midodrine (Proamatine -) 10 mg PO TID-MID [facility] Last Admin: 10/06/19 17:06 Dose: 10 mg Pantoprazole Sodium (Protonix -) 40 mg PO DAILY [facility] Last Admin: 10/06/19 10:10 Dose: 40 mg Valacyclovir HCl (Valtrex -) 500 mg PO DAILY [facility] Last Admin: 10/06/19 10:10 Dose: 500 mg Gen: Mildly tachypneic at rest Heart: RRR Lung: Bibasilar rales and rhonchi Abd: soft, nontender Ext: worsening peripheral edema Laboratory Results - last 24 hr 10/06/19 10/06/19 10/06/19 10:55 20:45 20:45 WBC 4.0 RBC 2.21 L Hgb 7.2 L Hct 21.7 L MCV 98.4 H MCH 32.5 MCHC 33.0 RDW 15.8 H Plt Count 190 MPV 8.4 Absolute Neuts (auto) 2.5 Neutrophils % 61.8 Lymphocytes % 28.2 Monocytes % 7.9 Eosinophils % 1.1 Basophils % 1.0 Nucleated RBC % 0 PT with INR INR PTT (Actin FS) D-Dimer Sodium 137 Potassium 4.7 Chloride 103 Carbon Dioxide 26 Anion Gap 7 L BUN 39.2 H Creatinine 0.9 Est GFR (CKD-EPI)AfAm 72.49 Est GFR (CKD-EPI)NonAf 62.55 Random Glucose 109 H Calcium 8.7 Phosphorus 2.8 Magnesium 1.9 1.8 Total Bilirubin 0.1 L AST 31 ALT 39 Alkaline Phosphatase 67 Creatine Kinase 41 Creatine Kinase Index CK-MB (CK-2) Troponin I 0.14 H Total Protein 6.2 L Albumin 1.0 L Crossmatch 10/06/19 10/07/19 10/07/19 23:55 02:55 02:55 WBC RBC Hgb Hct MCV MCH MCHC RDW Plt Count MPV Absolute Neuts (auto) Neutrophils % Lymphocytes % Monocytes % Eosinophils % Basophils % Nucleated RBC % PT with INR 11.70 INR 0.99 PTT (Actin FS) 33.7 D-Dimer Sodium Potassium Chloride Carbon Dioxide Anion Gap BUN Creatinine Est GFR (CKD-EPI)AfAm Est GFR (CKD-EPI)NonAf Random Glucose Calcium Phosphorus Magnesium Total Bilirubin AST ALT Alkaline Phosphatase Creatine Kinase 178 Creatine Kinase Index 11.0 H CK-MB (CK-2) 19.6 H Troponin I 1.36 H* 3.95 H* Total Protein Albumin Crossmatch 10/07/19 10/07/19 10/07/19 02:55 05:45 05:45 WBC 5.0 RBC 2.14 L Hgb 6.9 L* Hct 21.2 L MCV 98.8 H MCH 32.3 MCHC 32.7 RDW 15.9 H Plt Count 189 MPV 8.8 Absolute Neuts (auto) 4.0 Neutrophils % 81.7 D Lymphocytes % 10.6 D Monocytes % 7.4 Eosinophils % 0.0 D Basophils % 0.3 Nucleated RBC % 0 PT with INR INR PTT (Actin FS) D-Dimer 3730 H Sodium 134 L Potassium 5.4 H Chloride 100 Carbon Dioxide 24 Anion Gap 10 BUN 44.1 H Creatinine 1.4 H Est GFR (CKD-EPI)AfAm 42.49 Est GFR (CKD-EPI)NonAf 36.66 Random Glucose 152 H Calcium 8.7 Phosphorus Magnesium Total Bilirubin 0.3 AST 86 H ALT 44 Alkaline Phosphatase 64 Creatine Kinase 259 H Creatine Kinase Index 10.8 H CK-MB (CK-2) 28.2 H Troponin I 7.78 H* Total Protein 6.6 Albumin 1.2 L Crossmatch 10/07/19 10:00 WBC RBC Hgb Hct MCV MCH MCHC RDW Plt Count MPV Absolute Neuts (auto) Neutrophils % Lymphocytes % Monocytes % Eosinophils % Basophils % Nucleated RBC % PT with INR INR PTT (Actin FS) D-Dimer Sodium Potassium Chloride Carbon Dioxide Anion Gap BUN Creatinine Est GFR (CKD-EPI)AfAm Est GFR (CKD-EPI)NonAf Random Glucose Calcium Phosphorus Magnesium Total Bilirubin AST ALT Alkaline Phosphatase Creatine Kinase Creatine Kinase Index CK-MB (CK-2) Troponin I Total Protein Albumin Crossmatch See Detail ASSESSMENT AND PLAN: Acute on Chronic Systolic Heart Failure Cardiogenic Shock Acute on Chronic Renal Failure CAD Pneumonia Asthma Multiple Myeloma HTN Hyperlipidemia Hypothyroidism Anemia - continue lasix - Increase Milrinone - Taper off levophed gtt, would tolerate MAP >55 as long as urine output adequate - Monitor urine output, creatinine - Daily weights - completed antibiotics - O2 to keep SpO2 >90% - inhaled bronchodilators as needed - DVT prophylaxis - May benefit from transfer to tertiary care - continue ICU monitoring for pressors Dr Bacon Critical care time spent in reviewing chart, evaluating patient and formulating plan 35 min
[2019-10-07] MEDS ORDERED: MORPHINE SULFATE 2 MG/ML VIAL IVPUSH ONE (11:27)
--- NOTE | 2019-10-07 11:34 | PN ---
Progress Note, Physician History of Present Illness: events noted patient on pressors line changed Overall worsening. Levophed drip increased to 10mcq. Remains on Milrinone and Amiodarone. ARF noted. - Current Medication List Current Medications: Active Medications Acetaminophen (Tylenol -) 650 mg PO Q6H PRN PRN Reason: FEVER Last Admin: 10/04/19 19:53 Dose: 650 mg Allopurinol (Zyloprim -) 300 mg PO DAILY [facility] Last Admin: 10/06/19 10:10 Dose: 300 mg Aspirin (Ecotrin -) 81 mg PO DAILY [facility] Last Admin: 10/06/19 10:10 Dose: 81 mg Atorvastatin Calcium (Lipitor -) 40 mg PO HS [facility] Last Admin: 10/06/19 21:01 Dose: 40 mg Escitalopram Oxalate (Lexapro -) 10 mg PO DAILY [facility] Last Admin: 10/06/19 10:10 Dose: 10 mg Furosemide (Lasix Injection -) 40 mg IVPUSH DAILY [facility] Last Admin: 10/06/19 10:37 Dose: 40 mg Heparin Sodium (Porcine) (Heparin -) 1,000 unit IVPUSH PRN PRN PRN Reason: APTT 40-49 Heparin Sodium (Porcine) (Heparin -) 5,000 unit IVPUSH PRN PRN PRN Reason: APTT < 40 Norepinephrine Bitartrate 8, (000 mcg/ Dextrose) 500 mls @ 18.75 mls/hr IV TITR [facility]; Protocol Last Admin: 10/07/19 07:35 Dose: 10 mcg/min, 37.5 mls/hr Milrinone Lactate/Dextrose (Milrinone 20mg/100ml Ivpb -) 20,000 mcg in 100 mls @ 4.311 mls/hr IVPB TITR [facility]; Protocol Last Titration: 10/07/19 10:01 Dose: 0.3 mcg/kg/min, 6.466 mls/hr Heparin Sodium/Dextrose (Heparin Infusion -) 25,000 units in 500 mls @ 20 mls/ hr IVPB TITR [facility]; Protocol Last Admin: 10/07/19 04:26 Dose: 1,000 units/hr, 20 mls/hr Amiodarone HCl/Dextrose (Nexterone 360 Mg/200 Ml Bag) 360 mg in 200 mls @ 16.667 mls/hr IVPB ASDIR [facility]; Protocol Ipratropium [place] (Atrovent 0.02% Nebulizer -) 1 amp NEB RQID PRN PRN Reason: Dyspnea Last Admin: 10/06/19 23:11 Dose: 1 amp Ipratropium [place] (Atrovent 0.02% Nebulizer -) 1 amp NEB Q1H PRN PRN Reason: WHEEZING Last Admin: 10/07/19 01:32 Dose: 1 amp Levothyroxine Sodium (Synthroid -) 75 mcg PO DAILY@0700 [facility] Last Admin: 10/07/19 06:43 Dose: 75 mcg Midodrine (Proamatine -) 10 mg PO TID-MID [facility] Last Admin: 10/06/19 17:06 Dose: 10 mg Pantoprazole Sodium (Protonix -) 40 mg PO DAILY [facility] Last Admin: 10/06/19 10:10 Dose: 40 mg Valacyclovir HCl (Valtrex -) 500 mg PO DAILY [facility] Last Admin: 10/06/19 10:10 Dose: 500 mg - Objective Vital Signs: Vital Signs Temperature 98.1 F 10/07/19 06:00 Pulse Rate 94 H 10/07/19 08:00 Respiratory Rate 25 H 10/07/19 08:00 Blood Pressure 66/45 L 10/07/19 08:00 O2 Sat by Pulse Oximetry (%) 97 10/07/19 08:25 Constitutional: Yes: Calm, Mild Distress Cardiovascular: Yes: S1, S2 Respiratory: Yes: Regular, On Nasal O2, Poor Air Entry Gastrointestinal: Yes: Normal Bowel Sounds, Soft Musculoskeletal: Yes: WNL Extremities: Yes: Other Edema: LLE: 2+, RLE: 2+ Neurological: Yes: Alert Psychiatric: Yes: Alert Labs: CBC, BMP 10/07/19 05:45 10/07/19 05:45 INR, PTT INR 0.99 (0.83-1.09) 10/07/19 02:55 Assessment/Plan Problem List - Problems (1) Anasarca Code(s): R60.1 - GENERALIZED EDEMA (2) Fluid overload Code(s): E87.70 - FLUID OVERLOAD, UNSPECIFIED (3) Hypoxia Code(s): R09.02 - HYPOXEMIA (4) Weakness Code(s): R53.1 - WEAKNESS (5) ASHD (arteriosclerotic heart disease) Code(s): I25.10 - ATHSCL HEART DISEASE OF [place] CORONARY ARTERY W/O ANG PCTRS (6) Acute exacerbation of CHF (congestive heart failure) Code(s): I50.9 - HEART FAILURE, UNSPECIFIED (7) Acute on chronic systolic CHF (congestive heart failure) Code(s): I50.23 - ACUTE ON CHRONIC SYSTOLIC (CONGESTIVE) HEART FAILURE (8) Adult onset hypothyroidism Code(s): E03.8 - OTHER SPECIFIED HYPOTHYROIDISM (9) Anemia Code(s): D64.9 - ANEMIA, UNSPECIFIED (10) CKD (chronic kidney disease) Code(s): N18.9 - CHRONIC KIDNEY DISEASE, UNSPECIFIED (11) Elevated troponin Code(s): R74.8 - ABNORMAL LEVELS OF OTHER SERUM ENZYMES (12) HLD (hyperlipidemia) Code(s): E78.5 - HYPERLIPIDEMIA, UNSPECIFIED Qualifiers: Hyperlipidemia type: unspecified Qualified Code(s): E78.5 - Hyperlipidemia , unspecified (13) HTN (hypertension) Code(s): I10 - ESSENTIAL (PRIMARY) HYPERTENSION Qualifiers: Hypertension type: unspecified Qualified Code(s): I10 - Essential (primary ) hypertension (14) History of heart artery stent Code(s): Z95.5 - PRESENCE OF CORONARY ANGIOPLASTY IMPLANT AND GRAFT (15) Multiple myeloma Code(s): C90.00 - MULTIPLE MYELOMA NOT HAVING ACHIEVED REMISSION Qualifiers: Multiple myeloma remission status: not in remission Qualified Code(s): C90.00 - Multiple myeloma not having achieved remission uti hypotension Assessment/Plan continue current mgmt pressors rest as per the team supportive monitor closely cc40 min
--- NOTE | 2019-10-07 11:36 | EKG ---
Test Reason : Blood Pressure : / mmHG Vent. Rate : 091 BPM Atrial Rate : 091 BPM P-R Int : 138 ms QRS Dur : 116 ms QT Int : 358 ms P-R-T Axes : 032 -13 188 degrees QTc Int : 440 ms NORMAL SINUS RHYTHM ANTERIOR INFARCT (CITED ON OR BEFORE 06-OCT-2019) MARKED ST ABNORMALITY, POSSIBLE LATERAL SUBENDOCARDIAL INJURY ABNORMAL ECG WHEN COMPARED WITH ECG OF 07-OCT-2019 01:42, VENT. RATE HAS DECREASED BY 48 BPM Confirmed by ALVAREZ BOWLES MD ([id number]) on 10/07/2019 11:35:28 AM Referred By: Confirmed By:ALVAREZ BOWLES MD
--- NOTE | 2019-10-07 11:37 | EKG ---
Test Reason : Blood Pressure : / mmHG Vent. Rate : 139 BPM Atrial Rate : 139 BPM P-R Int : 136 ms QRS Dur : 118 ms QT Int : 312 ms P-R-T Axes : 000 -21 160 degrees QTc Int : 474 ms SINUS TACHYCARDIA SEPTAL INFARCT (CITED ON OR BEFORE 06-OCT-2019) MARKED ST ABNORMALITY, POSSIBLE LATERAL SUBENDOCARDIAL INJURY ABNORMAL ECG Confirmed by ALVAREZ BOWLES MD ([id number]) on 10/07/2019 11:36:57 AM Referred By: VANDA FELIX Confirmed By:ALVAREZ BOWLES MD
--- NOTE | 2019-10-07 11:39 | EKG ---
Test Reason : Blood Pressure : / mmHG Vent. Rate : 141 BPM Atrial Rate : 141 BPM P-R Int : 000 ms QRS Dur : 112 ms QT Int : 288 ms P-R-T Axes : 000 -79 122 degrees QTc Int : 441 ms ATRIAL FIBRILLATION WITH RAPID VENTRICULAR RESPONSE WITH PREMATURE VENTRICULAR OR ABERRANTLY CONDUCTED COMPLEXES LEFT AXIS DEVIATION PULMONARY DISEASE PATTERN NONSPECIFIC ST ABNORMALITY ABNORMAL ECG WHEN COMPARED WITH ECG OF 06-OCT-2019 20:27, ATRIAL FIBRILLATION HAS REPLACED SINUS RHYTHM Confirmed by ALVAREZ BOWLES MD ([id number]) on 10/07/2019 11:39:24 AM Referred By: BASSEM FELIX Confirmed By:ALVAREZ BOWLES MD
--- NOTE | 2019-10-07 11:42 | EKG ---
Test Reason : Blood Pressure : / mmHG Vent. Rate : 127 BPM Atrial Rate : 127 BPM P-R Int : 134 ms QRS Dur : 126 ms QT Int : 326 ms P-R-T Axes : 058 -16 185 degrees QTc Int : 473 ms SINUS TACHYCARDIA NON-SPECIFIC INTRA-VENTRICULAR CONDUCTION BLOCK CANNOT RULE OUT ANTERIOR INFARCT , AGE UNDETERMINED T WAVE ABNORMALITY, CONSIDER INFEROLATERAL ISCHEMIA ABNORMAL ECG WHEN COMPARED WITH ECG OF 28-SEP-2019 08:49, INVERTED T WAVES HAVE REPLACED NONSPECIFIC T WAVE ABNORMALITY IN INFERIOR LEADS Confirmed by ALVAREZ BOWLES MD ([id number]) on 10/07/2019 11:42:09 AM Referred By: BASSEM FELIX Confirmed By:ALVAREZ BOWLES MD
[2019-10-07] MEDS ORDERED: PT OWN MED DRAWER 7, Y5N ONE (12:20)
[2019-10-07] MEDS: MIDODRINE HCL 5 MG TABLET PO SCH ×3 (12:26→22:38)
[2019-10-07] MEDS: ESCITALOPRAM OXALATE 10 MG TABLET (FP) PO SCH (12:26)
[2019-10-07] MEDS: ALLOPURINOL 300 MG TABLET (FP) PO SCH (12:26)
[2019-10-07] MEDS: ASPIRIN COATED 81 MG TABLET.EC PO SCH (12:27)
[2019-10-07] MEDS: PANTOPRAZOLE 40 MG TABLET (FP) PO SCH (12:27)
[2019-10-07] MEDS: valACYclovir HCL 500 MG TABLET (FP) PO SCH (12:27)
[2019-10-07 13:45] LABS: ALBUMIN 1.1 g/dl (3.4-5.0); BILIRUBIN,TOTAL 0.3 mg/dL (0.2-1); BLOOD UREA NITROGEN 42.8 mg/dL (7-18); CALCIUM 8.8 mg/dL (8.5-10.1); CREATININE 1.5 mg/dL (0.55-1.3); POTASSIUM 5.5 mmol/L (3.5-5.1); TOT PROT 6.6 g/dl (6.4-8.2)
[2019-10-07] MEDS ORDERED: SODIUM POLYSTYRENE SULFONATE 15 GM/60 ML BOTTLE PO ONE (14:20)
[2019-10-07] MEDS ORDERED: CALCIUM GLUCONATE 10% - 1,000 MG/10 ML VIAL IVPUSH ONE (14:20)
[2019-10-07] MEDS ORDERED: ALBUTEROL SO4 2.5/IPRATROPIUM 0.5 INH SOL 3 ML VIAL.NEB. NEB ONE (14:21)
[2019-10-07] MEDS: FUROSEMIDE 40 MG/4 ML INJECTABLE VIAL IVPUSH SCH (16:02)
[2019-10-07] MEDS: HYDROCORTISONE SOD SUCCINATE 100 MG/2 ML VIAL IVPB SCH ×2 (16:06→21:39)
--- NOTE | 2019-10-07 16:19 | PN ---
Progress Note, Physician History of Present Illness: Pt seen and examined at bedside. Events noted. She is sitting up in bed. She has shortness of breath. - Current Medication List Current Medications: Active Medications Acetaminophen (Tylenol -) 650 mg PO Q6H PRN PRN Reason: FEVER Last Admin: 10/04/19 19:53 Dose: 650 mg Allopurinol (Zyloprim -) 300 mg PO DAILY [facility] Last Admin: 10/07/19 12:26 Dose: 300 mg Aspirin (Ecotrin -) 81 mg PO DAILY [facility] Last Admin: 10/07/19 12:27 Dose: 81 mg Atorvastatin Calcium (Lipitor -) 40 mg PO HS [facility] Last Admin: 10/06/19 21:01 Dose: 40 mg Escitalopram Oxalate (Lexapro -) 10 mg PO DAILY [facility] Last Admin: 10/07/19 12:26 Dose: 10 mg Furosemide (Lasix Injection -) 40 mg IVPUSH DAILY [facility] Last Admin: 10/07/19 16:02 Dose: Not Given Heparin Sodium (Porcine) (Heparin -) 1,000 unit IVPUSH PRN PRN PRN Reason: APTT 40-49 Heparin Sodium (Porcine) (Heparin -) 5,000 unit IVPUSH PRN PRN PRN Reason: APTT < 40 Hydrocortisone Sodium Succinate (Solu-Cortef -) 50 mg IVPB Q6H-IV [facility] Last Admin: 10/07/19 16:06 Dose: 50 mg Norepinephrine Bitartrate 8, (000 mcg/ Dextrose) 500 mls @ 18.75 mls/hr IV TITR [facility]; Protocol Last Admin: 10/07/19 07:35 Dose: 10 mcg/min, 37.5 mls/hr Milrinone Lactate/Dextrose (Milrinone 20mg/100ml Ivpb -) 20,000 mcg in 100 mls @ 4.311 mls/hr IVPB TITR [facility]; Protocol Last Admin: 10/07/19 12:28 Dose: Not Given Heparin Sodium/Dextrose (Heparin Infusion -) 25,000 units in 500 mls @ 20 mls/ hr IVPB TITR [facility]; Protocol Last Admin: 10/07/19 04:26 Dose: 1,000 units/hr, 20 mls/hr Amiodarone HCl/Dextrose (Nexterone 360 Mg/200 Ml Bag) 360 mg in 200 mls @ 16.667 mls/hr IVPB ASDIR [facility]; Protocol Ipratropium [place] (Atrovent 0.02% Nebulizer -) 1 amp NEB RQID PRN PRN Reason: Dyspnea Last Admin: 10/06/19 23:11 Dose: 1 amp Ipratropium [place] (Atrovent 0.02% Nebulizer -) 1 amp NEB Q1H PRN PRN Reason: WHEEZING Last Admin: 10/07/19 01:32 Dose: 1 amp Levothyroxine Sodium (Synthroid -) 75 mcg PO DAILY@0700 [facility] Last Admin: 10/07/19 06:43 Dose: 75 mcg Midodrine (Proamatine -) 10 mg PO TID-MID [facility] Last Admin: 10/07/19 15:03 Dose: 10 mg Pantoprazole Sodium (Protonix -) 40 mg PO DAILY [facility] Last Admin: 10/07/19 12:27 Dose: 40 mg Valacyclovir HCl (Valtrex -) 500 mg PO DAILY [facility] Last Admin: 10/07/19 12:27 Dose: 500 mg - Objective Vital Signs: Vital Signs Temperature 98.2 F 10/07/19 13:00 Pulse Rate 78 10/07/19 14:00 Respiratory Rate 29 H 10/07/19 14:00 Blood Pressure 76/49 L 10/07/19 14:00 O2 Sat by Pulse Oximetry (%) 97 10/07/19 08:25 Constitutional: Yes: Calm Eyes: Yes: Conjunctiva Clear Cardiovascular: Yes: S1, S2 Respiratory: Yes: On Nasal O2, Rhonchi Gastrointestinal: Yes: Soft Genitourinary: Yes: WNL Musculoskeletal: Yes: Muscle Weakness Edema: Yes Edema: LLE: 2+, RLE: 2+ Neurological: Yes: Oriented Psychiatric: Yes: Oriented Labs: CBC, BMP 10/07/19 05:45 10/07/19 12:20 INR, PTT INR 0.99 (0.83-1.09) 10/07/19 02:55 - ....Imaging Chest X-ray: Report Reviewed Problem List - Problems (1) Fluid overload Code(s): E87.70 - FLUID OVERLOAD, UNSPECIFIED (2) CKD (chronic kidney disease) Code(s): N18.9 - CHRONIC KIDNEY DISEASE, UNSPECIFIED Assessment/Plan Current Medications Generic Name Dose Route Start Last Admin Trade Name Freq PRN Reason Stop Dose Admin Acetaminophen 650 mg 09/20/19 22:25 10/04/19 19:53 Tylenol - PO 650 mg Q6H PRN Administration FEVER Allopurinol 300 mg 09/21/19 10:00 10/07/19 12:26 Zyloprim - PO 300 mg DAILY [facility] Administration Aspirin 81 mg 09/25/19 10:00 10/07/19 12:27 Ecotrin - PO 81 mg DAILY [facility] Administration Atorvastatin Calcium 40 mg 09/20/19 22:00 10/06/19 21:01 Lipitor - PO 40 mg HS [facility] Administration Escitalopram Oxalate 10 mg 09/21/19 10:00 10/07/19 12:26 Lexapro - PO 10 mg DAILY [facility] Administration Furosemide 40 mg 09/21/19 10:00 10/07/19 16:02 Lasix Injection - IVPUSH Not Given DAILY [facility] Heparin Sodium (Porcine) 1,000 unit 10/07/19 04:04 Heparin - IVPUSH PRN PRN APTT 40-49 Heparin Sodium (Porcine) 5,000 unit 10/07/19 04:04 Heparin - IVPUSH PRN PRN APTT < 40 Hydrocortisone Sodium Succinate 50 mg 10/07/19 16:00 10/07/19 16:06 Solu-Cortef - IVPB 50 mg Q6H-IV [facility] Administration Norepinephrine Bitartrate 8, 500 mls @ 18.75 mls/hr 09/27/19 22:00 10/07/19 07:35 000 mcg/ Dextrose IV 10 mcg/min TITR [facility] 37.5 mls/hr Administration Protocol 5 MCG/MIN Milrinone Lactate/Dextrose 20,000 mcg in 100 mls @ 4.311 mls/hr 10/05/19 11: 00 10/07/19 12:28 Milrinone 20mg/100ml Ivpb - IVPB Not Given TITR [facility] Protocol 0.2 MCG/KG/MIN Heparin Sodium/Dextrose 25,000 units in 500 mls @ 20 mls/hr 10/07/19 04:15 04:26 Heparin Infusion - IVPB 1,000 units/hr TITR [facility] 20 mls/hr Administration Protocol 1,000 UNITS/HR Amiodarone HCl/Dextrose 360 mg in 200 mls @ 16.667 mls/hr 10/07/19 09:15 Nexterone 360 Mg/200 Ml Bag IVPB ASDIR [facility] Protocol 0.5 MG/MIN Ipratropium [place] 1 amp 10/06/19 22:27 10/06/19 23:11 Atrovent 0.02% Nebulizer - NEB 1 amp RQID PRN Administration Dyspnea Ipratropium [place] 1 amp 10/07/19 01:17 10/07/19 01:32 Atrovent 0.02% Nebulizer - NEB 1 amp Q1H PRN Administration WHEEZING Levothyroxine Sodium 75 mcg 09/21/19 07:00 10/07/19 06:43 Synthroid - PO 75 mcg DAILY@0700 [facility] Administration Midodrine 10 mg 10/06/19 18:00 10/07/19 15:03 Proamatine - PO 10 mg TID-MID [facility] Administration Pantoprazole Sodium 40 mg 09/21/19 10:00 10/07/19 12:27 Protonix - PO 40 mg DAILY [facility] Administration Valacyclovir HCl 500 mg 09/21/19 10:00 10/07/19 12:27 Valtrex - PO 500 mg DAILY [facility] Administration Impression 1. proteinuria 2. multiple myeloma 3. amyloid 4. dizziness 5. hypotension 6. HLD 7. hypothyroidism 8. anemia 9. CKD 10. fluid overload 11. hypotension Plan - renal function worsening - pt is overloaded - potassium treated medically, pleas avoid kayexylate, can give lokelma of still elevated - lasix if bp permits - hold losartan (was on it to help with proteinuria) - monitor bp
--- NOTE | 2019-10-07 17:53 | PN ---
Progress Note (short form) - Note Progress Note: Patient seen and examined Discussed with cardiology and critical care. Received one unit of packed cells. Elevated troponin suggests infarct Last Vital Signs Temp Pulse Resp BP Pulse Ox 98 F 75 24 H 71/42 L 97 10/07/19 15:00 10/07/19 16:15 10/07/19 16:15 10/07/19 16:15 10/07/19 08:25 On high flow oxygen HEENT: ZOILA, EOM Intact Oropharynx: thrush, No mucositis, central catheter on left Cor: RSR, No murmurs, No gallops Lungs: diminished breath sounds, rhonchi Abd: Soft, Normal bowel sounds, No organomegaly Ext LE edema Skin: No rashes, Integument intact CBC, BMP 10/07/19 05:45 10/07/19 12:20 Current Medications Generic Name Dose Route Start Last Admin Trade Name Freq PRN Reason Stop Dose Admin Acetaminophen 650 mg 09/20/19 22:25 10/04/19 19:53 Tylenol - PO 650 mg Q6H PRN Administration FEVER Allopurinol 300 mg 09/21/19 10:00 10/07/19 12:26 Zyloprim - PO 300 mg DAILY [facility] Administration Aspirin 81 mg 09/25/19 10:00 10/07/19 12:27 Ecotrin - PO 81 mg DAILY [facility] Administration Atorvastatin Calcium 40 mg 09/20/19 22:00 10/06/19 21:01 Lipitor - PO 40 mg HS [facility] Administration Escitalopram Oxalate 10 mg 09/21/19 10:00 10/07/19 12:26 Lexapro - PO 10 mg DAILY [facility] Administration Furosemide 40 mg 09/21/19 10:00 10/07/19 16:02 Lasix Injection - IVPUSH Not Given DAILY [facility] Heparin Sodium (Porcine) 1,000 unit 10/07/19 04:04 Heparin - IVPUSH PRN PRN APTT 40-49 Heparin Sodium (Porcine) 5,000 unit 10/07/19 04:04 Heparin - IVPUSH PRN PRN APTT < 40 Hydrocortisone Sodium Succinate 50 mg 10/07/19 16:00 10/07/19 16:06 Solu-Cortef - IVPB 50 mg Q6H-IV [facility] Administration Norepinephrine Bitartrate 8, 500 mls @ 18.75 mls/hr 09/27/19 22:00 10/07/19 17:00 000 mcg/ Dextrose IV 10 mcg/min TITR [facility] 37.5 mls/hr Administration Protocol 5 MCG/MIN Milrinone Lactate/Dextrose 20,000 mcg in 100 mls @ 4.311 mls/hr 10/05/19 11: 00 10/07/19 12:28 Milrinone 20mg/100ml Ivpb - IVPB Not Given TITR [facility] Protocol 0.2 MCG/KG/MIN Heparin Sodium/Dextrose 25,000 units in 500 mls @ 20 mls/hr 10/07/19 04:15 17:40 Heparin Infusion - IVPB 1,000 units/hr TITR [facility] 20 mls/hr Administration Protocol 1,000 UNITS/HR Amiodarone HCl/Dextrose 360 mg in 200 mls @ 16.667 mls/hr 10/07/19 09:15 04/20 17:41 Nexterone 360 Mg/200 Ml Bag IVPB Not Given ASDIR [facility] Protocol 0.5 MG/MIN Ipratropium [place] 1 amp 10/06/19 22:27 10/06/19 23:11 Atrovent 0.02% Nebulizer - NEB 1 amp RQID PRN Administration Dyspnea Ipratropium [place] 1 amp 10/07/19 01:17 10/07/19 01:32 Atrovent 0.02% Nebulizer - NEB 1 amp Q1H PRN Administration WHEEZING Levothyroxine Sodium 75 mcg 09/21/19 07:00 10/07/19 06:43 Synthroid - PO 75 mcg DAILY@0700 PABLITO Administration Midodrine 10 mg 10/06/19 18:00 10/07/19 15:03 Proamatine - PO 10 mg TID-MID PABLITO Administration Pantoprazole Sodium 40 mg 09/21/19 10:00 10/07/19 12:27 Protonix - PO 40 mg DAILY PABLITO Administration Valacyclovir HCl 500 mg 09/21/19 10:00 10/07/19 12:27 Valtrex - PO 500 mg DAILY PABLITO Administration Impression: Probable recent [place] Anemia Myeloma Amyloid Hypotension CKD/DEBBIE Hyperkalemia thrush Pressors Plans _ per ICU/cardiology/critical care team Maintain Hb> 8.0 gm% Free kappa/free lambda light chain ratio as it reflects myeloma and amyloid status has been stable over past year.
[2019-10-07] MEDS: ATORVASTATIN CA 40 MG TABLET (FP) PO SCH (21:39)
[2019-10-07] MEDS: NYSTATIN 500,000 UNITS TABLET PO SCH (21:39)
[2019-10-07] MEDS: ACETAMINOPHEN 325 MG TABLET (FP) PO PRN (21:49)
--- NOTE | 2019-10-07 22:23 | PN ---
Progress Note, Physician - Current Medication List Current Medications: Active Medications Acetaminophen (Tylenol -) 650 mg PO Q6H PRN PRN Reason: FEVER Last Admin: 10/07/19 21:49 Dose: 650 mg Allopurinol (Zyloprim -) 300 mg PO DAILY [facility] Last Admin: 10/07/19 12:26 Dose: 300 mg Aspirin (Ecotrin -) 81 mg PO DAILY [facility] Last Admin: 10/07/19 12:27 Dose: 81 mg Atorvastatin Calcium (Lipitor -) 40 mg PO HS [facility] Last Admin: 10/07/19 21:39 Dose: 40 mg Escitalopram Oxalate (Lexapro -) 10 mg PO DAILY [facility] Last Admin: 10/07/19 12:26 Dose: 10 mg Furosemide (Lasix Injection -) 40 mg IVPUSH DAILY [facility] Last Admin: 10/07/19 16:02 Dose: Not Given Heparin Sodium (Porcine) (Heparin -) 1,000 unit IVPUSH PRN PRN PRN Reason: APTT 40-49 Heparin Sodium (Porcine) (Heparin -) 5,000 unit IVPUSH PRN PRN PRN Reason: APTT < 40 Hydrocortisone Sodium Succinate (Solu-Cortef -) 50 mg IVPB Q6H-IV [facility] Last Admin: 10/07/19 21:39 Dose: 50 mg Norepinephrine Bitartrate 8, (000 mcg/ Dextrose) 500 mls @ 18.75 mls/hr IV TITR [facility]; Protocol Last Admin: 10/07/19 17:00 Dose: 10 mcg/min, 37.5 mls/hr Milrinone Lactate/Dextrose (Milrinone 20mg/100ml Ivpb -) 20,000 mcg in 100 mls @ 4.311 mls/hr IVPB TITR [facility]; Protocol Last Admin: 10/07/19 22:18 Dose: 0.3 mcg/kg/min, 6.466 mls/hr Heparin Sodium/Dextrose (Heparin Infusion -) 25,000 units in 500 mls @ 20 mls/ hr IVPB TITR [facility]; Protocol Last Admin: 10/07/19 17:40 Dose: 1,000 units/hr, 20 mls/hr Amiodarone HCl/Dextrose (Nexterone 360 Mg/200 Ml Bag) 360 mg in 200 mls @ 16.667 mls/hr IVPB ASDIR [facility]; Protocol Last Admin: 10/07/19 17:41 Dose: Not Given Ipratropium [place] (Atrovent 0.02% Nebulizer -) 1 amp NEB RQID PRN PRN Reason: Dyspnea Last Admin: 10/06/19 23:11 Dose: 1 amp Ipratropium [place] (Atrovent 0.02% Nebulizer -) 1 amp NEB Q1H PRN PRN Reason: WHEEZING Last Admin: 10/07/19 01:32 Dose: 1 amp Levothyroxine Sodium (Synthroid -) 75 mcg PO DAILY@0700 [facility] Last Admin: 10/07/19 06:43 Dose: 75 mcg Midodrine (Proamatine -) 10 mg PO TID-MID [facility] Last Admin: 10/07/19 15:03 Dose: 10 mg Nystatin (Nystatin) 500,000 unit PO TID [facility] Stop: 10/12/19 22:00 Last Admin: 10/07/19 21:39 Dose: 500,000 unit Pantoprazole Sodium (Protonix -) 40 mg PO DAILY [facility] Last Admin: 10/07/19 12:27 Dose: 40 mg Valacyclovir HCl (Valtrex -) 500 mg PO DAILY [facility] Last Admin: 10/07/19 12:27 Dose: 500 mg - Objective Vital Signs: Vital Signs Temperature 98 F 10/07/19 15:00 Pulse Rate 75 10/07/19 16:15 Respiratory Rate 24 H 10/07/19 16:15 Blood Pressure 71/42 L 10/07/19 16:15 O2 Sat by Pulse Oximetry (%) 97 10/07/19 08:25 Labs: CBC, BMP 10/07/19 05:45 10/07/19 12:20 INR, PTT INR 0.99 (0.83-1.09) 10/07/19 02:55 Problem List - Problems (1) Acute on chronic systolic CHF (congestive heart failure) Code(s): I50.23 - ACUTE ON CHRONIC SYSTOLIC (CONGESTIVE) HEART FAILURE (2) UTI (urinary tract infection) Code(s): N39.0 - URINARY TRACT INFECTION, SITE NOT SPECIFIED (3) HTN (hypertension) Code(s): I10 - ESSENTIAL (PRIMARY) HYPERTENSION Qualifiers: Hypertension type: unspecified Qualified Code(s): I10 - Essential (primary ) hypertension (4) Multiple myeloma Code(s): C90.00 - MULTIPLE MYELOMA NOT HAVING ACHIEVED REMISSION Qualifiers: Multiple myeloma remission status: not in remission Qualified Code(s): C90.00 - Multiple myeloma not having achieved remission (5) HLD (hyperlipidemia) Code(s): E78.5 - HYPERLIPIDEMIA, UNSPECIFIED Qualifiers: Hyperlipidemia type: unspecified Qualified Code(s): E78.5 - Hyperlipidemia , unspecified (6) Hypothyroidism Code(s): E03.9 - HYPOTHYROIDISM, UNSPECIFIED Qualifiers: Hypothyroidism type: acquired Qualified Code(s): E03.9 - Hypothyroidism, unspecified (7) CAD (coronary artery disease) Code(s): I25.10 - ATHSCL HEART DISEASE OF [place] CORONARY ARTERY W/O ANG PCTRS Qualifiers: (8) Depression Code(s): F32.9 - MAJOR DEPRESSIVE DISORDER, SINGLE EPISODE, UNSPECIFIED (9) History of heart artery stent Code(s): Z95.5 - PRESENCE OF CORONARY ANGIOPLASTY IMPLANT AND GRAFT (10) Elevated troponin Code(s): R74.8 - ABNORMAL LEVELS OF OTHER SERUM ENZYMES (11) Diarrhea Code(s): R19.7 - DIARRHEA, UNSPECIFIED Qualifiers: Diarrhea type: unspecified type Qualified Code(s): R19.7 - Diarrhea, unspecified
[2019-10-08] MEDS: HYDROCORTISONE SOD SUCCINATE 100 MG/2 ML VIAL IVPB SCH ×4 (02:42→21:01)
[2019-10-08] MEDS: AMIODARONE IN DEXTROSE,ISO-OSM 360 MG/200 ML BAG IVPB SCH ×2 (03:30→13:27)
[2019-10-08] MEDS: NYSTATIN 500,000 UNITS TABLET PO SCH ×3 (06:02→21:02)
[2019-10-08] MEDS: LEVOTHYROXINE NA 75 MCG TABLET (FP) PO SCH (06:02)
[2019-10-08] MEDS: HEPARIN INFUSION - 25,000 UNITS/500 ML INFUS.BAG IVPB SCH ×2 (06:03→13:29)
--- NOTE | 2019-10-08 06:05 | PN ---
Progress Note, Physician Chief Complaint: Pt A&Ox3; had chest discomfort overnight, and did not sleep well; SOB on minimal exertion; weak. History of Present Illness: 74 year old black female with PMH multiple myeloma, amyloidosis (s/p chemotherapy, abdomen-directed radiation Tx), HTN, HLD, CAD s/p coronary artery stenting, GERD, , ? "mild" systolic CHF (now noted severely reduced LVEF on ECHO ), on Lasix, rectal hemorrhoids, now presented to ED for diarrhea x2 days associated with generalized weakness, ROGERS. Pt reported she has had loose, watery diarrhea x2 days, and prior to that he had rectal bleeding x2 days (on toilet paper and mixed in stool) that self resolved. She reported she only noticed the bleeding because it was on the toilet paper, as she did not have abdominal or rectal pain. Pt reported generalized weakness and ROGERS, which prompted her to come to the ED. Pt denied nausea, vomiting, fever, abdominal pain, chest pain, increased LE swelling. She reported she believed her lower extremity swelling is actually improving. She also reported noticing a new "rash " to her right hip since last week. - Current Medication List Current Medications: Active Medications Acetaminophen (Tylenol -) 650 mg PO Q6H PRN PRN Reason: FEVER Last Admin: 10/07/19 21:49 Dose: 650 mg Allopurinol (Zyloprim -) 300 mg PO DAILY [facility] Last Admin: 10/07/19 12:26 Dose: 300 mg Aspirin (Ecotrin -) 81 mg PO DAILY [facility] Last Admin: 10/07/19 12:27 Dose: 81 mg Atorvastatin Calcium (Lipitor -) 40 mg PO HS [facility] Last Admin: 10/07/19 21:39 Dose: 40 mg Escitalopram Oxalate (Lexapro -) 10 mg PO DAILY [facility] Last Admin: 10/07/19 12:26 Dose: 10 mg Furosemide (Lasix Injection -) 40 mg IVPUSH DAILY [facility] Last Admin: 10/07/19 16:02 Dose: Not Given Heparin Sodium (Porcine) (Heparin -) 1,000 unit IVPUSH PRN PRN PRN Reason: APTT 40-49 Heparin Sodium (Porcine) (Heparin -) 5,000 unit IVPUSH PRN PRN PRN Reason: APTT < 40 Hydrocortisone Sodium Succinate (Solu-Cortef -) 50 mg IVPB Q6H-IV [facility] Last Admin: 10/08/19 02:42 Dose: 50 mg Norepinephrine Bitartrate 8, (000 mcg/ Dextrose) 500 mls @ 18.75 mls/hr IV TITR [facility]; Protocol Last Admin: 10/07/19 22:39 Dose: Not Given Milrinone Lactate/Dextrose (Milrinone 20mg/100ml Ivpb -) 20,000 mcg in 100 mls @ 4.311 mls/hr IVPB TITR [facility]; Protocol Last Admin: 10/07/19 22:18 Dose: 0.3 mcg/kg/min, 6.466 mls/hr Heparin Sodium/Dextrose (Heparin Infusion -) 25,000 units in 500 mls @ 20 mls/ hr IVPB TITR [facility]; Protocol Last Admin: 10/08/19 06:03 Dose: Not Given Amiodarone HCl/Dextrose (Nexterone 360 Mg/200 Ml Bag) 360 mg in 200 mls @ 16.667 mls/hr IVPB ASDIR [facility]; Protocol Last Admin: 10/08/19 03:30 Dose: 16.667 mls/hr Ipratropium [place] (Atrovent 0.02% Nebulizer -) 1 amp NEB RQID PRN PRN Reason: Dyspnea Last Admin: 10/06/19 23:11 Dose: 1 amp Ipratropium [place] (Atrovent 0.02% Nebulizer -) 1 amp NEB Q1H PRN PRN Reason: WHEEZING Last Admin: 10/07/19 01:32 Dose: 1 amp Levothyroxine Sodium (Synthroid -) 75 mcg PO DAILY@0700 [facility] Last Admin: 10/08/19 06:02 Dose: 75 mcg Midodrine (Proamatine -) 10 mg PO TID-MID [facility] Last Admin: 10/07/19 22:38 Dose: Not Given Nystatin (Nystatin) 500,000 unit PO TID [facility] Stop: 10/12/19 22:00 Last Admin: 10/08/19 06:02 Dose: 500,000 unit Pantoprazole Sodium (Protonix -) 40 mg PO DAILY [facility] Last Admin: 10/07/19 12:27 Dose: 40 mg Valacyclovir HCl (Valtrex -) 500 mg PO DAILY [facility] Last Admin: 10/07/19 12:27 Dose: 500 mg - Objective Vital Signs: Vital Signs Temperature 98.3 F 10/08/19 02:00 Pulse Rate 76 10/08/19 04:00 Respiratory Rate 18 10/08/19 04:00 Blood Pressure 86/55 L 10/08/19 04:00 O2 Sat by Pulse Oximetry (%) 97 10/07/19 08:25 Constitutional: Yes: Anxious, Moderate Distress Eyes: Yes: WNL HENT: Yes: WNL Neck: Yes: WNL Cardiovascular: Yes: Tachycardia, S1, S2 Respiratory: Yes: Diminished, On Nasal O2, SOB, Tachypnea Gastrointestinal: Yes: Soft ...Rectal Exam: Yes: Deferred Genitourinary: No: Anuria Breast(s): Yes: WNL Musculoskeletal: Yes: Muscle Weakness Extremities: Yes: Cool Edema: No Peripheral Pulses WNL: No Peripheral Pulses: Left Doralis Pedis: 1+, Right Dorsalis Pedis: 1+ Integumentary: Yes: WNL Neurological: Yes: Alert, Oriented, Weakness Psychiatric: Yes: Alert, Oriented Labs: CBC, BMP 10/07/19 05:45 10/07/19 12:20 INR, PTT INR 0.99 (0.83-1.09) 10/07/19 02:55 - ....Imaging Chest X-ray: Image Reviewed (cardiomegaly; worsening CHF) EKG: Image Reviewed Other: Image Reviewed (NSR: anterior MD; marked STT changes) Problem List - Problems (1) Weakness Code(s): R53.1 - WEAKNESS (2) ASHD (arteriosclerotic heart disease) Code(s): I25.10 - ATHSCL HEART DISEASE OF [place] CORONARY ARTERY W/O ANG PCTRS (3) Acute on chronic systolic CHF (congestive heart failure) Assessment/Plan: On norepnephrine, amiodarone, and milrinone. Remains hypotension and tahcycardia; has now developed NSTEMI, with circulatory shock; ASA, IV heparin, and statin started. Off beta blockers, ACEI, Spironolactone due to hypotension; unable to consider SGLT-2 inhibitor for this reason. Plan: Attempt to titrate off norepinephrine, however, pt, though alert, presently remains profoundly hypotensive. On milrinone; f/u BUN/Cr, electrolytes, daily weight, Is ans Os. F/u with hem/oncologist regarding status of malignancy (pt to receive PRBCs today). If prognosis warrants, consider transfer to tertiary care center for treatment of NSTEMI with circulatory shock and refractory severe systolic CHF ( e.g. potential aortic balloon pump, PCI). Code(s): I50.23 - ACUTE ON CHRONIC SYSTOLIC (CONGESTIVE) HEART FAILURE (4) Adult onset hypothyroidism Assessment/Plan: mildly elevated TSH; normal Free T4. Code(s): E03.8 - OTHER SPECIFIED HYPOTHYROIDISM (5) Anxiety Code(s): F41.9 - ANXIETY DISORDER, UNSPECIFIED (6) Elevated troponin Code(s): R74.8 - ABNORMAL LEVELS OF OTHER SERUM ENZYMES (7) HLD (hyperlipidemia) Code(s): E78.5 - HYPERLIPIDEMIA, UNSPECIFIED Qualifiers: Hyperlipidemia type: unspecified Qualified Code(s): E78.5 - Hyperlipidemia , unspecified (8) History of heart artery stent Code(s): Z95.5 - PRESENCE OF CORONARY ANGIOPLASTY IMPLANT AND GRAFT (9) Multiple myeloma Assessment/Plan: f/u with oncologist/roller skater. Code(s): C90.00 - MULTIPLE MYELOMA NOT HAVING ACHIEVED REMISSION Qualifiers: Multiple myeloma remission status: not in remission Qualified Code(s): C90.00 - Multiple myeloma not having achieved remission (10) Pancytopenia Code(s): D61.818 - OTHER PANCYTOPENIA (11) NSTEMI (non-ST elevated myocardial infarction) Assessment/Plan: see under "Acute Systolic CHF". Code(s): I21.4 - NON-ST ELEVATION (NSTEMI) MYOCARDIAL INFARCTION (12) Acute renal insufficiency Code(s): N28.9 - DISORDER OF KIDNEY AND URETER, UNSPECIFIED (13) Hypoalbuminemia Code(s): E88.09 - OTH DISORDERS OF PLASMA-PROTEIN METABOLISM, NEC Assessment/Plan CCU juan spent: 45 minutes.
[2019-10-08] MEDS ORDERED: NOREPINEPHRINE BITARTRATE 4 MG/4 ML ML IV ONE ×3 (06:08→23:17)
[2019-10-08] MEDS: NOREPINEPHRINE BITARTRATE 8,000 MCG in DEXTROSE 5%-WATER - 492 ML IV SCH (06:14)
[2019-10-08 07:40] LABS: BASO % 0.3 % (0-2.0); HEMATOCRIT 24.3 % (32.4-45.2); HEMOGLOBIN 8.1 GM/dL (10.7-15.3); LYMPH % 11.5 % (8-40); MCH 31.1 pg (25.7-33.7); MCHC 33.4 g/dl (32.0-36.0); MEAN CELL VOLUME 93.1 fl (80-96); MEAN PLT VOLUME 9.4 fl (7.5-11.1); NEUT % 84.2 % (42.8-82.8); PLATELET COUNT 187 K/MM3 (134-434); RBC 2.61 M/mm3 (3.60-5.2); RDW 19.9 % (11.6-15.6); WHITE BLOOD COUNT 5.6 K/mm3 (4.0-10.0)
--- NOTE | 2019-10-08 08:24 | PN ---
Progress Note (short form) - Note Progress Note: RENAL Pt is awake and alert Last Vital Signs Temp Pulse Resp BP Pulse Ox 98.8 F 85 30 H 94/54 L 97 10/08/19 06:00 10/08/19 06:00 10/08/19 06:00 10/08/19 06:00 10/07/19 08:25 denies current complaints lungs clear anteriorly cvs s1s2 rr abd soft ext + edema neuro a+ox3 CBC, BMP 10/08/19 06:30 Current Medications Generic Name Dose Route Start Last Admin Trade Name Freq PRN Reason Stop Dose Admin Acetaminophen 650 mg 09/20/19 22:25 10/07/19 21:49 Tylenol - PO 650 mg Q6H PRN Administration FEVER Allopurinol 300 mg 09/21/19 10:00 10/07/19 12:26 Zyloprim - PO 300 mg DAILY [facility]O Administration Aspirin 81 mg 09/25/19 10:00 10/07/19 12:27 Ecotrin - PO 81 mg DAILY [facility] Administration Atorvastatin Calcium 40 mg 09/20/19 22:00 10/07/19 21:39 Lipitor - PO 40 mg HS PAB[facility]O Administration Escitalopram Oxalate 10 mg 09/21/19 10:00 10/07/19 12:26 Lexapro - PO 10 mg DAILY [facility] Administration Furosemide 40 mg 09/21/19 10:00 10/07/19 16:02 Lasix Injection - IVPUSH Not Given DAILY [facility] Heparin Sodium (Porcine) 1,000 unit 10/07/19 04:04 Heparin - IVPUSH PRN PRN APTT 40-49 Heparin Sodium (Porcine) 5,000 unit 10/07/19 04:04 Heparin - IVPUSH PRN PRN APTT < 40 Hydrocortisone Sodium Succinate 50 mg 10/07/19 16:00 10/08/19 02:42 Solu-Cortef - IVPB 50 mg Q6H-IV [facility] Administration Norepinephrine Bitartrate 8, 500 mls @ 18.75 mls/hr 09/27/19 22:00 10/08/19 06:14 000 mcg/ Dextrose IV 10 mcg/min TITR [facility] 37.5 mls/hr Administration Protocol 5 MCG/MIN Milrinone Lactate/Dextrose 20,000 mcg in 100 mls @ 4.311 mls/hr 10/05/19 11: 00 10/07/19 22:18 Milrinone 20mg/100ml Ivpb - IVPB 0.3 mcg/kg/min TITR [facility] 6.466 mls/hr Administration Protocol 0.2 MCG/KG/MIN Heparin Sodium/Dextrose 25,000 units in 500 mls @ 20 mls/hr 10/07/19 04:15 08:00 Heparin Infusion - IVPB 0 units/hr TITR [facility] 0 mls/hr Titration Protocol 1,000 UNITS/HR Amiodarone HCl/Dextrose 360 mg in 200 mls @ 16.667 mls/hr 10/07/19 09:15 05/20 03:30 Nexterone 360 Mg/200 Ml Bag IVPB 16.667 mls/hr ASDIR [facility] Administration Protocol 0.5 MG/MIN Ipratropium [place] 1 amp 10/06/19 22:27 10/06/19 23:11 Atrovent 0.02% Nebulizer - NEB 1 amp RQID PRN Administration Dyspnea Ipratropium [place] 1 amp 10/07/19 01:17 10/07/19 01:32 Atrovent 0.02% Nebulizer - NEB 1 amp Q1H PRN Administration WHEEZING Levothyroxine Sodium 75 mcg 09/21/19 07:00 10/08/19 06:02 Synthroid - PO 75 mcg DAILY@0700 [facility] Administration Midodrine 10 mg 10/06/19 18:00 10/07/19 22:38 Proamatine - PO Not Given TID-MID [facility] Nystatin 500,000 unit 10/07/19 22:00 10/08/19 06:02 Nystatin PO 10/12/19 22:00 500,000 unit TID [facility] Administration Pantoprazole Sodium 40 mg 09/21/19 10:00 10/07/19 12:27 Protonix - PO 40 mg DAILY [facility] Administration Valacyclovir HCl 500 mg 09/21/19 10:00 10/07/19 12:27 Valtrex - PO 500 mg DAILY [facility] Administration Impression 1. proteinuria/severe hypoalbuminemia 2. multiple myeloma 3. amyloid 4. dizziness 5. hypotension 6. HLD 7. hypothyroidism 8. anemia 9. CKD 10. fluid overload 11 nstemi Plan follow labs today may be better to reduce inotropes in setting of [place] monitor renal function would be a candidate for cvvhdf if renal function continues to worsen would also dc hydrocortisone given fluid retention MV
[2019-10-08 08:45] LABS: ALBUMIN 1.2 g/dl (3.4-5.0); BILIRUBIN,TOTAL 0.2 mg/dL (0.2-1); BLOOD UREA NITROGEN 50.4 mg/dL (7-18); CALCIUM 8.5 mg/dL (8.5-10.1); CREATININE 1.8 mg/dL (0.55-1.3); MAGNESIUM 2.2 mg/dL (1.8-2.4); PHOSPHOROUS 4.5 mg/dL (2.5-4.9); POTASSIUM 5.2 mmol/L (3.5-5.1); TOT PROT 6.8 g/dl (6.4-8.2)
[2019-10-08] MEDS ORDERED: PT OWN MED DRAWER 7, Y5N ONE ×2 (09:15→13:24)
--- NOTE | 2019-10-08 09:33 | PN ---
Physical Exam: SUBJECTIVE: Patient seen and examined. States she is feeling better today compared to yesterday. No chest pain, SOB, abd pain, N/V. On high flow oxygen therapy. OBJECTIVE: Vital Signs Period Temp Pulse Resp BP Sys/[place]oss Pulse Ox Last 24 Hr 98 F-98.8 F 74-88 16-88 71-99/41-60 GENERAL: The patient is awake, alert, and fully oriented, in no acute distress. HEAD: Normal with no signs of trauma. EYES: EOMI ENT: dry mucous membranes NECK: Trachea midline LUNGS: Breath sounds equal, clear to auscultation bilaterally, no wheezes, no crackles, no accessory muscle use. HEART: Regular rate and rhythm, S1, S2 without murmur, rub or gallop. ABDOMEN: Soft, nontender, nondistended, normoactive bowel sounds, no guarding EXTREMITIES: +edema of bilateral lower extremities improved compared to yesterday, 2+ pulses, warm, well-perfused NEUROLOGICAL: Normal speech, gait not observed. SKIN: Warm, dry Laboratory Results - last 24 hr 10/07/19 10/07/19 10/07/19 10:00 12:00 12:20 WBC RBC Hgb Hct MCV MCH MCHC RDW Plt Count MPV Absolute Neuts (auto) Neutrophils % Lymphocytes % Monocytes % Eosinophils % Basophils % Nucleated RBC % PTT (Actin FS) 72.6 H Sodium 135 L Potassium 5.5 H Chloride 101 Carbon Dioxide 23 Anion Gap 12 BUN 42.8 H Creatinine 1.5 H Est GFR (CKD-EPI)AfAm 39.09 Est GFR (CKD-EPI)NonAf 33.73 Random Glucose 126 H Calcium 8.8 Phosphorus Magnesium Total Bilirubin 0.3 AST 169 H ALT 67 H Alkaline Phosphatase 65 Troponin I Total Protein 6.6 Albumin 1.1 L Blood Type B POSITIVE Antibody Screen Negative Crossmatch See Detail 10/07/19 10/08/19 10/08/19 21:45 06:30 06:30 WBC RBC Hgb Hct MCV MCH MCHC RDW Plt Count MPV Absolute Neuts (auto) Neutrophils % Lymphocytes % Monocytes % Eosinophils % Basophils % Nucleated RBC % PTT (Actin FS) 99.4 H Sodium 130 L Potassium 5.2 H Chloride 96 L Carbon Dioxide 23 Anion Gap 10 BUN 50.4 H Creatinine 1.8 H Est GFR (CKD-EPI)AfAm 31.36 Est GFR (CKD-EPI)NonAf 27.06 Random Glucose 152 H Calcium 8.5 Phosphorus 4.5 Magnesium 2.2 Total Bilirubin 0.2 AST 173 H ALT 84 H Alkaline Phosphatase 68 Troponin I 26.40 H* 21.10 H* Total Protein 6.8 Albumin 1.2 L Blood Type Antibody Screen Crossmatch 10/08/19 06:30 WBC 5.6 RBC 2.61 L Hgb 8.1 L Hct 24.3 L MCV 93.1 MCH 31.1 MCHC 33.4 RDW 19.9 H Plt Count 187 MPV 9.4 Absolute Neuts (auto) 4.8 Neutrophils % 84.2 H Lymphocytes % 11.5 Monocytes % 4.0 Eosinophils % 0.0 Basophils % 0.3 Nucleated RBC % 0 PTT (Actin FS) Sodium Potassium Chloride Carbon Dioxide Anion Gap BUN Creatinine Est GFR (CKD-EPI)AfAm Est GFR (CKD-EPI)NonAf Random Glucose Calcium Phosphorus Magnesium Total Bilirubin AST ALT Alkaline Phosphatase Troponin I Total Protein Albumin Blood Type Antibody Screen Crossmatch Active Medications Generic Name Dose Route Start Last Admin Trade Name Freq PRN Reason Stop Dose Admin Acetaminophen 650 mg 09/20/19 22:25 10/07/19 21:49 Tylenol - PO 650 mg Q6H PRN Administration FEVER Allopurinol 300 mg 09/21/19 10:00 10/07/19 12:26 Zyloprim - PO 300 mg DAILY [facility] Administration Aspirin 81 mg 09/25/19 10:00 10/07/19 12:27 Ecotrin - PO 81 mg DAILY [facility] Administration Atorvastatin Calcium 40 mg 09/20/19 22:00 10/07/19 21:39 Lipitor - PO 40 mg HS [facility] Administration Escitalopram Oxalate 10 mg 09/21/19 10:00 10/07/19 12:26 Lexapro - PO 10 mg DAILY [facility] Administration Furosemide 40 mg 09/21/19 10:00 10/07/19 16:02 Lasix Injection - IVPUSH Not Given DAILY [facility] Heparin Sodium (Porcine) 1,000 unit 10/07/19 04:04 Heparin - IVPUSH PRN PRN APTT 40-49 Heparin Sodium (Porcine) 5,000 unit 10/07/19 04:04 Heparin - IVPUSH PRN PRN APTT < 40 Hydrocortisone Sodium Succinate 50 mg 10/07/19 16:00 10/08/19 02:42 Solu-Cortef - IVPB 50 mg Q6H-IV [facility] Administration Norepinephrine Bitartrate 8, 500 mls @ 18.75 mls/hr 09/27/19 22:00 10/08/19 06:14 000 mcg/ Dextrose IV 10 mcg/min TITR [facility] 37.5 mls/hr Administration Protocol 5 MCG/MIN Milrinone Lactate/Dextrose 20,000 mcg in 100 mls @ 4.311 mls/hr 10/05/19 11: 00 10/07/19 22:18 Milrinone 20mg/100ml Ivpb - IVPB 0.3 mcg/kg/min TITR [facility] 6.466 mls/hr Administration Protocol 0.2 MCG/KG/MIN Heparin Sodium/Dextrose 25,000 units in 500 mls @ 20 mls/hr 10/07/19 04:15 08:30 Heparin Infusion - IVPB 900 units/hr TITR [facility] 18 mls/hr Titration Protocol 1,000 UNITS/HR Amiodarone HCl/Dextrose 360 mg in 200 mls @ 16.667 mls/hr 10/07/19 09:15 05/20 03:30 Nexterone 360 Mg/200 Ml Bag IVPB 16.667 mls/hr ASDIR [facility] Administration Protocol 0.5 MG/MIN Ipratropium [place] 1 amp 10/06/19 22:27 10/06/19 23:11 Atrovent 0.02% Nebulizer - NEB 1 amp RQID PRN Administration Dyspnea Ipratropium [place] 1 amp 10/07/19 01:17 10/07/19 01:32 Atrovent 0.02% Nebulizer - NEB 1 amp Q1H PRN Administration WHEEZING Levothyroxine Sodium 75 mcg 09/21/19 07:00 10/08/19 06:02 Synthroid - PO 75 mcg DAILY@0700 [facility] Administration Midodrine 10 mg 10/06/19 18:00 10/07/19 22:38 Proamatine - PO Not Given TID-MID [facility] Nystatin 500,000 unit 10/07/19 22:00 10/08/19 06:02 Nystatin PO 10/12/19 22:00 500,000 unit TID [facility] Administration Pantoprazole Sodium 40 mg 09/21/19 10:00 10/07/19 12:27 Protonix - PO 40 mg DAILY [facility] Administration Valacyclovir HCl 500 mg 09/21/19 10:00 10/07/19 12:27 Valtrex - PO 500 mg DAILY [facility] Administration ASSESSMENT/PLAN: 73 y/o/f with PMHx of multiple myeloma (currently on treatment), amyloidosis, chronic anemia, hypertension, hyperlipidemia, hypothyroidism, GERD, admitted for UGIB, renal failure, volume overload, transferred to the ICU for hypotension refractory to IVF boluses. #Neuro - AAOx3 #Cardiovascular - Cardiogenic shock: Milrinone drip, Midodrine 10mg PO. Attempt to wean off Levophed. MAP target 55-60 - Cardio recs: Continue Heparin drip, attempt to wean off Levophed, will see if patient will benefit from transfer to tertiary care center - Continue home meds Aspirin 81mg, Atorvastatin 40mg - started on Hydrocortisone 50mg Q6hr for BP support - Trop peaked at 26.4, most recent at 21.1 #Pulm - CXR: worsening progressive changes - Duonebs as needed - Continue Lasix 40mg IV #Renal - BUN/Cr: 39.8/0.8 -> 37.1/0.6 -> 37.1/0.7 -> 42.8/1.5 -> 50.4/1.8 - Renal function worsening, likely from hypotension - Nephro recs: Hold Losartan, continue Midodrine and Lasix - Monitor I&Os, UOP, trend Cr - Hyperkalemia 5.2 - will give Lokelma - would be a candidate for cvvhdf if renal function continues to worsen #Heme/Onc - Multiple Myeloma: Continue Lokelma, Allopurinol - H&H 8.2 -> 7.4 -> 6.9 -> 8.1. - Transfused 1unit PRBC 10/07. Target Hgb 8 #ID - ID recs: Stop abx, was previously on Meropenem #Endo - Hx of hypothyroidism - Continue levothyroxine #FEN - Na controlled diet #Prophylaxis - SCDs - Heparin drip #Dispo - ICU monitoring - Full code status Visit type - Emergency Visit Emergency Visit: Yes ED Registration Date: 09/20/19 Care time: The patient presented to the Emergency Department on the above date and was hospitalized for further evaluation of their emergent condition. - New Patient This patient is new to me today: No - Critical Care Critical Care patient: Yes Total Critical Care Time (in minutes): 36 Critical Care Statement: The care of this patient involved high complexity decision making to prevent further life threatening deterioration of the patient 's condition and/or to evaluate & treat vital organ system(s) failure or risk of failure. ATTENDING PHYSICIAN STATEMENT I saw and evaluated the patient. I reviewed the resident's note and discussed the case with the resident. I agree with the resident's findings and plan as documented. SUBJECTIVE: OBJECTIVE: ASSESSMENT AND PLAN:
[2019-10-08] MEDS: MIDODRINE HCL 5 MG TABLET PO SCH ×3 (09:35→17:42)
[2019-10-08] MEDS: ALLOPURINOL 300 MG TABLET (FP) PO SCH (09:35)
[2019-10-08] MEDS: PANTOPRAZOLE 40 MG TABLET (FP) PO SCH (09:35)
[2019-10-08] MEDS: ASPIRIN COATED 81 MG TABLET.EC PO SCH (09:35)
[2019-10-08] MEDS: valACYclovir HCL 500 MG TABLET (FP) PO SCH (09:36)
[2019-10-08] MEDS: ESCITALOPRAM OXALATE 10 MG TABLET (FP) PO SCH (09:36)
--- NOTE | 2019-10-08 09:58 | PN ---
Teaching Attending Note Name of Resident: Emma Calero ATTENDING PHYSICIAN STATEMENT I saw and evaluated the patient. I reviewed the resident's note and discussed the case with the resident. I agree with the resident's findings and plan as documented. SUBJECTIVE: Patient seen and examined in the ICU. Awake and alert, but appears weak. Levophed drip remains at 10mcq. Remains on Milrinone and Amiodarone. Denies shortness of breath or chest pain. OBJECTIVE: Intake & Output 10/05/19 10/06/19 10/07/19 10/08/19 23:59 23:59 23:59 23:59 Intake Total 953 1205.9 1959.3 960 Output Total 1000 1 1050 Balance -47 1204.9 1959.3 -90 Weight 158 lb 6.4 oz 160 lb 12.8 oz 159 lb 9.6 oz 171 lb 11.2 oz Last Vital Signs Temp Pulse Resp BP Pulse Ox 98.8 F 76 21 H 98/59 L 97 10/08/19 06:00 10/08/19 08:00 10/08/19 08:00 10/08/19 08:00 10/07/19 08:25 Active Medications Acetaminophen (Tylenol -) 650 mg PO Q6H PRN PRN Reason: FEVER Last Admin: 10/07/19 21:49 Dose: 650 mg Allopurinol (Zyloprim -) 300 mg PO DAILY [facility] Last Admin: 10/08/19 09:35 Dose: 300 mg Aspirin (Ecotrin -) 81 mg PO DAILY [facility] Last Admin: 10/08/19 09:35 Dose: 81 mg Atorvastatin Calcium (Lipitor -) 40 mg PO HS [facility] Last Admin: 10/07/19 21:39 Dose: 40 mg Escitalopram Oxalate (Lexapro -) 10 mg PO DAILY [facility] Last Admin: 10/08/19 09:36 Dose: 10 mg Furosemide (Lasix Injection -) 40 mg IVPUSH DAILY [facility] Last Admin: 10/07/19 16:02 Dose: Not Given Heparin Sodium (Porcine) (Heparin -) 1,000 unit IVPUSH PRN PRN PRN Reason: APTT 40-49 Heparin Sodium (Porcine) (Heparin -) 5,000 unit IVPUSH PRN PRN PRN Reason: APTT < 40 Hydrocortisone Sodium Succinate (Solu-Cortef -) 50 mg IVPB Q6H-IV [facility] Last Admin: 10/08/19 09:36 Dose: 50 mg Norepinephrine Bitartrate 8, (000 mcg/ Dextrose) 500 mls @ 18.75 mls/hr IV TITR [facility]; Protocol Last Admin: 10/08/19 06:14 Dose: 10 mcg/min, 37.5 mls/hr Milrinone Lactate/Dextrose (Milrinone 20mg/100ml Ivpb -) 20,000 mcg in 100 mls @ 4.311 mls/hr IVPB TITR [facility]; Protocol Last Admin: 10/07/19 22:18 Dose: 0.3 mcg/kg/min, 6.466 mls/hr Heparin Sodium/Dextrose (Heparin Infusion -) 25,000 units in 500 mls @ 20 mls/ hr IVPB TITR [facility]; Protocol Last Titration: 10/08/19 08:30 Dose: 900 units/hr, 18 mls/hr Amiodarone HCl/Dextrose (Nexterone 360 Mg/200 Ml Bag) 360 mg in 200 mls @ 16.667 mls/hr IVPB ASDIR [facility]; Protocol Last Admin: 10/08/19 03:30 Dose: 16.667 mls/hr Ipratropium [place] (Atrovent 0.02% Nebulizer -) 1 amp NEB RQID PRN PRN Reason: Dyspnea Last Admin: 10/06/19 23:11 Dose: 1 amp Ipratropium [place] (Atrovent 0.02% Nebulizer -) 1 amp NEB Q1H PRN PRN Reason: WHEEZING Last Admin: 10/07/19 01:32 Dose: 1 amp Levothyroxine Sodium (Synthroid -) 75 mcg PO DAILY@0700 [facility] Last Admin: 10/08/19 06:02 Dose: 75 mcg Midodrine (Proamatine -) 10 mg PO TID-MID [facility] Last Admin: 10/08/19 09:35 Dose: 10 mg Nystatin (Nystatin) 500,000 unit PO TID [facility] Stop: 10/12/19 22:00 Last Admin: 10/08/19 06:02 Dose: 500,000 unit Pantoprazole Sodium (Protonix -) 40 mg PO DAILY [facility] Last Admin: 10/08/19 09:35 Dose: 40 mg Valacyclovir HCl (Valtrex -) 500 mg PO DAILY [facility] Last Admin: 10/08/19 09:36 Dose: 500 mg Gen: Awake and alert, weak appearing Heart: RRR Lung: Bibasilar rales and rhonchi Abd: soft, nontender Ext: slightly less peripheral edema ASSESSMENT AND PLAN: Acute on Chronic Systolic Heart Failure Cardiogenic Shock Acute on Chronic Renal Failure CAD Pneumonia Asthma Multiple Myeloma HTN Hyperlipidemia Hypothyroidism Anemia - Increase Milrinone - Lasix - Taper off levophed gtt, would tolerate MAP >55 as long as urine output adequate - Monitor urine output, creatinine - Daily weights - completed antibiotics - O2 to keep SpO2 >90% - inhaled bronchodilators as needed - DVT prophylaxis - May benefit from transfer to tertiary care - Continued ICU monitoring for pressors Dr Bacon Critical care time spent in reviewing chart, evaluating patient and formulating plan 35 min
[2019-10-08] MEDS: FUROSEMIDE 40 MG/4 ML INJECTABLE VIAL IVPUSH SCH (11:31)
[2019-10-08] MEDS: MILRINONE 20MG/100ML IVPB - 20,000 MCG/100 ML ML IVPB SCH (11:57)
--- NOTE | 2019-10-08 12:01 | PN ---
Progress Note, Physician Chief Complaint: Events noted Coverage for Dr. Burgess Currently on Levophed Also on Amiodarone drip and Milrinone drip MAP 58 History of Present Illness: Patient was seen and examined in ICU. Awake. Chart was reviewed Denies chest pain. High concentration O2 via NC tolerating therapy Remains in sinus rhythm - Current Medication List Current Medications: Active Medications Acetaminophen (Tylenol -) 650 mg PO Q6H PRN PRN Reason: FEVER Last Admin: 10/07/19 21:49 Dose: 650 mg Allopurinol (Zyloprim -) 300 mg PO DAILY [facility] Last Admin: 10/08/19 09:35 Dose: 300 mg Aspirin (Ecotrin -) 81 mg PO DAILY [facility] Last Admin: 10/08/19 09:35 Dose: 81 mg Atorvastatin Calcium (Lipitor -) 40 mg PO HS [facility] Last Admin: 10/07/19 21:39 Dose: 40 mg Escitalopram Oxalate (Lexapro -) 10 mg PO DAILY [facility] Last Admin: 10/08/19 09:36 Dose: 10 mg Furosemide (Lasix Injection -) 40 mg IVPUSH DAILY [facility] Last Admin: 10/08/19 11:31 Dose: 40 mg Heparin Sodium (Porcine) (Heparin -) 1,000 unit IVPUSH PRN PRN PRN Reason: APTT 40-49 Heparin Sodium (Porcine) (Heparin -) 5,000 unit IVPUSH PRN PRN PRN Reason: APTT < 40 Hydrocortisone Sodium Succinate (Solu-Cortef -) 50 mg IVPB Q6H-IV [facility] Last Admin: 10/08/19 09:36 Dose: 50 mg Norepinephrine Bitartrate 8, (000 mcg/ Dextrose) 500 mls @ 18.75 mls/hr IV TITR [facility]; Protocol Last Admin: 10/08/19 06:14 Dose: 10 mcg/min, 37.5 mls/hr Milrinone Lactate/Dextrose (Milrinone 20mg/100ml Ivpb -) 20,000 mcg in 100 mls @ 4.311 mls/hr IVPB TITR [facility]; Protocol Last Admin: 10/07/19 22:18 Dose: 0.3 mcg/kg/min, 6.466 mls/hr Heparin Sodium/Dextrose (Heparin Infusion -) 25,000 units in 500 mls @ 20 mls/ hr IVPB TITR [facility]; Protocol Last Titration: 10/08/19 08:30 Dose: 900 units/hr, 18 mls/hr Amiodarone HCl/Dextrose (Nexterone 360 Mg/200 Ml Bag) 360 mg in 200 mls @ 16.667 mls/hr IVPB ASDIR [facility]; Protocol Last Admin: 10/08/19 03:30 Dose: 16.667 mls/hr Ipratropium [place] (Atrovent 0.02% Nebulizer -) 1 amp NEB RQID PRN PRN Reason: Dyspnea Last Admin: 10/06/19 23:11 Dose: 1 amp Ipratropium [place] (Atrovent 0.02% Nebulizer -) 1 amp NEB Q1H PRN PRN Reason: WHEEZING Last Admin: 10/07/19 01:32 Dose: 1 amp Levothyroxine Sodium (Synthroid -) 75 mcg PO DAILY@0700 [facility] Last Admin: 10/08/19 06:02 Dose: 75 mcg Midodrine (Proamatine -) 10 mg PO TID-MID [facility] Last Admin: 10/08/19 09:35 Dose: 10 mg Nystatin (Nystatin) 500,000 unit PO TID [facility] Stop: 10/12/19 22:00 Last Admin: 10/08/19 06:02 Dose: 500,000 unit Pantoprazole Sodium (Protonix -) 40 mg PO DAILY [facility] Last Admin: 10/08/19 09:35 Dose: 40 mg Sodium Zirconium Cyclosilicate (Lokelma) 5 gm PO ONCE ONE Stop: 10/08/19 12:16 Valacyclovir HCl (Valtrex -) 500 mg PO DAILY [facility] Last Admin: 10/08/19 09:36 Dose: 500 mg - Objective Vital Signs: Vital Signs Temperature 98.4 F 10/08/19 10:00 Pulse Rate 86 10/08/19 10:00 Respiratory Rate 18 10/08/19 10:00 Blood Pressure 90/48 L 10/08/19 10:00 O2 Sat by Pulse Oximetry (%) 97 10/07/19 08:25 Eyes: Yes: PERRL HENT: Yes: Atraumatic Neck: Yes: Supple Cardiovascular: Yes: Regular Rate and Rhythm, S1, S2 Respiratory: Yes: Diminished, On Nasal O2 Gastrointestinal: Yes: Normal Bowel Sounds, Soft. No: Tenderness Edema: No Labs: CBC, BMP 10/08/19 06:30 10/08/19 06:30 INR, PTT INR 0.99 (0.83-1.09) 10/07/19 02:55 Laboratory Results - last 24 hr 10/07/19 10/07/19 10/07/19 10:00 12:00 12:20 WBC RBC Hgb Hct MCV MCH MCHC RDW Plt Count MPV Absolute Neuts (auto) Neutrophils % Lymphocytes % Monocytes % Eosinophils % Basophils % Nucleated RBC % PTT (Actin FS) 72.6 H Sodium 135 L Potassium 5.5 H Chloride 101 Carbon Dioxide 23 Anion Gap 12 BUN 42.8 H Creatinine 1.5 H Est GFR (CKD-EPI)AfAm 39.09 Est GFR (CKD-EPI)NonAf 33.73 Random Glucose 126 H Calcium 8.8 Phosphorus Magnesium Total Bilirubin 0.3 AST 169 H ALT 67 H Alkaline Phosphatase 65 Troponin I Total Protein 6.6 Albumin 1.1 L Blood Type B POSITIVE Antibody Screen Negative Crossmatch See Detail 10/07/19 10/08/19 10/08/19 21:45 06:30 06:30 WBC RBC Hgb Hct MCV MCH MCHC RDW Plt Count MPV Absolute Neuts (auto) Neutrophils % Lymphocytes % Monocytes % Eosinophils % Basophils % Nucleated RBC % PTT (Actin FS) 99.4 H Sodium 130 L Potassium 5.2 H Chloride 96 L Carbon Dioxide 23 Anion Gap 10 BUN 50.4 H Creatinine 1.8 H Est GFR (CKD-EPI)AfAm 31.36 Est GFR (CKD-EPI)NonAf 27.06 Random Glucose 152 H Calcium 8.5 Phosphorus 4.5 Magnesium 2.2 Total Bilirubin 0.2 AST 173 H ALT 84 H Alkaline Phosphatase 68 Troponin I 26.40 H* 21.10 H* Total Protein 6.8 Albumin 1.2 L Blood Type Antibody Screen Crossmatch 10/08/19 06:30 WBC 5.6 RBC 2.61 L Hgb 8.1 L Hct 24.3 L MCV 93.1 MCH 31.1 MCHC 33.4 RDW 19.9 H Plt Count 187 MPV 9.4 Absolute Neuts (auto) 4.8 Neutrophils % 84.2 H Lymphocytes % 11.5 Monocytes % 4.0 Eosinophils % 0.0 Basophils % 0.3 Nucleated RBC % 0 PTT (Actin FS) Sodium Potassium Chloride Carbon Dioxide Anion Gap BUN Creatinine Est GFR (CKD-EPI)AfAm Est GFR (CKD-EPI)NonAf Random Glucose Calcium Phosphorus Magnesium Total Bilirubin AST ALT Alkaline Phosphatase Troponin I Total Protein Albumin Blood Type Antibody Screen Crossmatch Problem List - Problems (1) NSTEMI (non-ST elevated myocardial infarction) Code(s): I21.4 - NON-ST ELEVATION (NSTEMI) MYOCARDIAL INFARCTION (2) ASHD (arteriosclerotic heart disease) Code(s): I25.10 - ATHSCL HEART DISEASE OF [place] CORONARY ARTERY W/O ANG PCTRS (3) Acute on chronic renal failure Code(s): N17.9 - ACUTE KIDNEY FAILURE, UNSPECIFIED; N18.9 - CHRONIC KIDNEY DISEASE, UNSPECIFIED Qualifiers: Chronic kidney disease stage: stage 2 (mild) (4) Acute on chronic systolic CHF (congestive heart failure) Code(s): I50.23 - ACUTE ON CHRONIC SYSTOLIC (CONGESTIVE) HEART FAILURE (5) Acute respiratory failure Code(s): J96.00 - ACUTE RESPIRATORY FAILURE, UNSP W HYPOXIA OR HYPERCAPNIA (6) Anemia Code(s): D64.9 - ANEMIA, UNSPECIFIED Qualifiers: Chronic kidney disease stage: unspecified stage (7) CHF (congestive heart failure) Code(s): I50.9 - HEART FAILURE, UNSPECIFIED Qualifiers: Heart failure type: systolic Heart failure chronicity: unspecified Qualified Code(s): I50.20 - Unspecified systolic (congestive) heart failure (8) Elevated troponin Code(s): R74.8 - ABNORMAL LEVELS OF OTHER SERUM ENZYMES (9) HLD (hyperlipidemia) Code(s): E78.5 - HYPERLIPIDEMIA, UNSPECIFIED Qualifiers: Hyperlipidemia type: unspecified Qualified Code(s): E78.5 - Hyperlipidemia , unspecified (10) Hypotension Code(s): I95.9 - HYPOTENSION, UNSPECIFIED Qualifiers: Hypotension type: other hypotension type Qualified Code(s): I95.89 - Other hypotension (11) Hypothyroidism Code(s): E03.9 - HYPOTHYROIDISM, UNSPECIFIED (12) Multiple myeloma Code(s): C90.00 - MULTIPLE MYELOMA NOT HAVING ACHIEVED REMISSION Assessment/Plan 1. Acute on chronic LV systolic failure with cardiogenic shock 2. PAF currently in sinus rhythm 3. Elevated troponin due to NSTEMI, underlying CAD post PCI/stent 4. Multiple Myeloma 5. Amyloid 6. Hyperlipidemia 7. CKD 8. Anemia due to chronic disease PLAN: 1. Continue current ICU management per critical care team 2. Taper Levophed as tolerated and titrate Milrinone and keep MAP>55 3. Currently on Amiodarone drip which can be tapered and switched to PO 4. Heparin drip to be continued 5. Hematology input noted 6. Monitor renal function and electrolytes 7. Transfuse as needed 8. Trend troponin currently appears to have peaked at 26 9. Review of chart reveals discussion regarding possible transfer to tertiary care center for treatment of refractory severe systolic heart failure with potential IABP. Currently transfer is held with continuation of current treatment at [facility] ICU. She appears to be responding to the current treatment. Will defer decision to Dr. Burgess upon his return on Thursday. Critical spent 45 min in ICU Discussed with Critical care team Praveen Woodruff MD
[2019-10-08] MEDS ORDERED: SODIUM ZIRCONIUM CYCLOSILICATE (LOKELMA) 5 GM PACKET PO ONE (12:15)
--- NOTE | 2019-10-08 17:56 | PN ---
Progress Note, Physician History of Present Illness: Pt is alert, weak. States she is feeling better. Denies SOB/CP/Abd pain. Remains afebrile. - Current Medication List Current Medications: Active Medications Acetaminophen (Tylenol -) 650 mg PO Q6H PRN PRN Reason: FEVER Last Admin: 10/07/19 21:49 Dose: 650 mg Allopurinol (Zyloprim -) 300 mg PO DAILY [facility] Last Admin: 10/08/19 09:35 Dose: 300 mg Aspirin (Ecotrin -) 81 mg PO DAILY [facility] Last Admin: 10/08/19 09:35 Dose: 81 mg Atorvastatin Calcium (Lipitor -) 40 mg PO HS [facility] Last Admin: 10/07/19 21:39 Dose: 40 mg Escitalopram Oxalate (Lexapro -) 10 mg PO DAILY [facility] Last Admin: 10/08/19 09:36 Dose: 10 mg Furosemide (Lasix Injection -) 40 mg IVPUSH DAILY [facility] Last Admin: 10/08/19 11:31 Dose: 40 mg Heparin Sodium (Porcine) (Heparin -) 1,000 unit IVPUSH PRN PRN PRN Reason: APTT 40-49 Heparin Sodium (Porcine) (Heparin -) 5,000 unit IVPUSH PRN PRN PRN Reason: APTT < 40 Hydrocortisone Sodium Succinate (Solu-Cortef -) 50 mg IVPB Q6H-IV [facility] Last Admin: 10/08/19 15:13 Dose: 50 mg Norepinephrine Bitartrate 8, (000 mcg/ Dextrose) 500 mls @ 18.75 mls/hr IV TITR [facility]; Protocol Last Admin: 10/08/19 06:14 Dose: 10 mcg/min, 37.5 mls/hr Milrinone Lactate/Dextrose (Milrinone 20mg/100ml Ivpb -) 20,000 mcg in 100 mls @ 4.311 mls/hr IVPB TITR [facility]; Protocol Last Admin: 10/08/19 11:57 Dose: 0.375 mcg/kg/min, 8.083 mls/hr Heparin Sodium/Dextrose (Heparin Infusion -) 25,000 units in 500 mls @ 20 mls/ hr IVPB TITR [facility]; Protocol Last Admin: 10/08/19 13:29 Dose: 900 units/hr, 18 mls/hr Amiodarone HCl/Dextrose (Nexterone 360 Mg/200 Ml Bag) 360 mg in 200 mls @ 16.667 mls/hr IVPB [facility]; Protocol Last Admin: 10/08/19 13:27 Dose: 16.667 mls/hr Ipratropium [place] (Atrovent 0.02% Nebulizer -) 1 amp NEB RQID PRN PRN Reason: Dyspnea Last Admin: 10/06/19 23:11 Dose: 1 amp Ipratropium [place] (Atrovent 0.02% Nebulizer -) 1 amp NEB Q1H PRN PRN Reason: WHEEZING Last Admin: 10/07/19 01:32 Dose: 1 amp Levothyroxine Sodium (Synthroid -) 75 mcg PO DAILY@0700 [facility] Last Admin: 10/08/19 06:02 Dose: 75 mcg Midodrine (Proamatine -) 10 mg PO TID-MID [facility] Last Admin: 10/08/19 17:42 Dose: 10 mg Nystatin (Nystatin) 500,000 unit PO TID [facility] Stop: 10/12/19 22:00 Last Admin: 10/08/19 13:29 Dose: 500,000 unit Pantoprazole Sodium (Protonix -) 40 mg PO DAILY [facility] Last Admin: 10/08/19 09:35 Dose: 40 mg Valacyclovir HCl (Valtrex -) 500 mg PO DAILY [facility] Last Admin: 10/08/19 09:36 Dose: 500 mg - Objective Vital Signs: Vital Signs Temperature 98 F 10/08/19 14:00 Pulse Rate 87 10/08/19 16:00 Respiratory Rate 22 H 10/08/19 16:00 Blood Pressure 92/54 L 10/08/19 16:00 O2 Sat by Pulse Oximetry (%) 97 10/07/19 08:25 Constitutional: Yes: No Distress, Calm Cardiovascular: Yes: Tachycardia Respiratory: Yes: Regular Gastrointestinal: Yes: Normal Bowel Sounds, Soft Genitourinary: Yes: [place] Present Edema: LLE: 1+, RLE: 1+ Integumentary: Yes: WNL Neurological: Yes: Alert Labs: CBC, BMP 10/08/19 06:30 10/08/19 06:30 INR, PTT INR 0.99 (0.83-1.09) 10/07/19 02:55 Microbiology 09/20/19 04:16 Blood - Peripheral Venous Blood Culture - Final NO GROWTH AFTER 5 DAYS INCUBATION 09/20/19 06:26 Urine - Urine Clean Catch Urine Culture - Final Strep Agalactiae Group B Problem List - Problems (1) Depression Code(s): F32.9 - MAJOR DEPRESSIVE DISORDER, SINGLE EPISODE, UNSPECIFIED (2) ASHD (arteriosclerotic heart disease) Code(s): I25.10 - ATHSCL HEART DISEASE OF [place] CORONARY ARTERY W/O ANG PCTRS (3) Acute on chronic renal failure Code(s): N17.9 - ACUTE KIDNEY FAILURE, UNSPECIFIED; N18.9 - CHRONIC KIDNEY DISEASE, UNSPECIFIED Qualifiers: Chronic kidney disease stage: stage 2 (mild) (4) Acute on chronic systolic CHF (congestive heart failure) Code(s): I50.23 - ACUTE ON CHRONIC SYSTOLIC (CONGESTIVE) HEART FAILURE (5) Anemia Code(s): D64.9 - ANEMIA, UNSPECIFIED Qualifiers: Chronic kidney disease stage: unspecified stage (6) CAD (coronary artery disease) Code(s): I25.10 - ATHSCL HEART DISEASE OF [place] CORONARY ARTERY W/O ANG PCTRS Qualifiers: (7) CHF (congestive heart failure) Code(s): I50.9 - HEART FAILURE, UNSPECIFIED Qualifiers: Heart failure type: systolic Heart failure chronicity: unspecified Qualified Code(s): I50.20 - Unspecified systolic (congestive) heart failure (8) Hypothyroidism Code(s): E03.9 - HYPOTHYROIDISM, UNSPECIFIED Qualifiers: Hypothyroidism type: acquired Qualified Code(s): E03.9 - Hypothyroidism, unspecified (9) Multiple myeloma Code(s): C90.00 - MULTIPLE MYELOMA NOT HAVING ACHIEVED REMISSION Qualifiers: Multiple myeloma remission status: not in remission Qualified Code(s): C90.00 - Multiple myeloma not having achieved remission Assessment/Plan UTI Acute on Chronic HF Shock DEBIBE on CKD Multiple Myeloma Amyloid CAD Anemia Hypothyroidism Asthma Depression -- events noted, chart reviewed -- Pt alert, afebrile, weak currently but without distress -- s/p course of antibiotics -- remains on Levophed continue monitor off of antibiotics cc: 38 min
--- NOTE | 2019-10-08 18:32 | PN ---
Progress Note (short form) - Note Progress Note: Patient seen and examiend Shortness of breath improved renal function worsened Last Vital Signs Temp Pulse Resp BP Pulse Ox 98 F 87 22 H 92/54 L 97 10/08/19 14:00 10/08/19 16:00 10/08/19 16:00 10/08/19 16:00 10/07/19 08:25 Cor: RSR, No murmurs, No gallops Lungs: decreased at bases Abd: Soft, Normal bowel sounds, No organomegaly Ext:No significant edema Abnormal Lab Results 10/07/19 10/08/19 10/08/19 21:45 06:30 06:30 RBC Hgb Hct RDW Neutrophils % PTT (Actin FS) 99.4 H Sodium 130 L Potassium 5.2 H Chloride 96 L BUN 50.4 H Creatinine 1.8 H Random Glucose 152 H AST 173 H ALT 84 H Troponin I 26.40 H* 21.10 H* Albumin 1.2 L 10/08/19 10/08/19 06:30 15:00 RBC 2.61 L Hgb 8.1 L Hct 24.3 L RDW 19.9 H Neutrophils % 84.2 H PTT (Actin FS) 60.5 H Sodium Potassium Chloride BUN Creatinine Random Glucose AST ALT Troponin I Albumin Active Medications Generic Name Dose Route Start Last Admin Trade Name Freq PRN Reason Stop Dose Admin Acetaminophen 650 mg 09/20/19 22:25 10/07/19 21:49 Tylenol - PO 650 mg Q6H PRN Administration FEVER Allopurinol 300 mg 09/21/19 10:00 10/08/19 09:35 Zyloprim - PO 300 mg DAILY [facility] Administration Aspirin 81 mg 09/25/19 10:00 10/08/19 09:35 Ecotrin - PO 81 mg DAILY [facility] Administration Atorvastatin Calcium 40 mg 09/20/19 22:00 10/07/19 21:39 Lipitor - PO 40 mg HS [facility] Administration Escitalopram Oxalate 10 mg 09/21/19 10:00 10/08/19 09:36 Lexapro - PO 10 mg DAILY [facility] Administration Furosemide 40 mg 09/21/19 10:00 10/08/19 11:31 Lasix Injection - IVPUSH 40 mg DAILY [facility] Administration Heparin Sodium (Porcine) 1,000 unit 10/07/19 04:04 Heparin - IVPUSH PRN PRN APTT 40-49 Heparin Sodium (Porcine) 5,000 unit 10/07/19 04:04 Heparin - IVPUSH PRN PRN APTT < 40 Hydrocortisone Sodium Succinate 50 mg 10/07/19 16:00 10/08/19 15:13 Solu-Cortef - IVPB 50 mg Q6H-IV [facility] Administration Norepinephrine Bitartrate 8, 500 mls @ 18.75 mls/hr 09/27/19 22:00 10/08/19 06:14 000 mcg/ Dextrose IV 10 mcg/min TITR [facility] 37.5 mls/hr Administration Protocol 5 MCG/MIN Milrinone Lactate/Dextrose 20,000 mcg in 100 mls @ 4.311 mls/hr 10/05/19 11: 00 10/08/19 11:57 Milrinone 20mg/100ml Ivpb - IVPB 0.375 mcg/kg/min TITR [facility] 8.083 mls/hr Administration Protocol 0.2 MCG/KG/MIN Heparin Sodium/Dextrose 25,000 units in 500 mls @ 20 mls/hr 10/07/19 04:15 13:29 Heparin Infusion - IVPB 900 units/hr TITR [facility] 18 mls/hr Administration Protocol 1,000 UNITS/HR Amiodarone HCl/Dextrose 360 mg in 200 mls @ 16.667 mls/hr 10/07/19 09:15 05/20 13:27 Nexterone 360 Mg/200 Ml Bag IVPB 16.667 mls/hr ASDIR [facility] Administration Protocol 0.5 MG/MIN Ipratropium [place] 1 amp 10/06/19 22:27 10/06/19 23:11 Atrovent 0.02% Nebulizer - NEB 1 amp RQID PRN Administration Dyspnea Ipratropium [place] 1 amp 10/07/19 01:17 10/07/19 01:32 Atrovent 0.02% Nebulizer - NEB 1 amp Q1H PRN Administration WHEEZING Levothyroxine Sodium 75 mcg 09/21/19 07:00 10/08/19 06:02 Synthroid - PO 75 mcg DAILY@0700 [facility] Administration Midodrine 10 mg 10/06/19 18:00 10/08/19 17:42 Proamatine - PO 10 mg TID-MID [facility] Administration Nystatin 500,000 unit 10/07/19 22:00 10/08/19 13:29 Nystatin PO 10/12/19 22:00 500,000 unit TID [facility] Administration Pantoprazole Sodium 40 mg 09/21/19 10:00 10/08/19 09:35 Protonix - PO 40 mg DAILY [facility] Administration Valacyclovir HCl 500 mg 09/21/19 10:00 10/08/19 09:36 Valtrex - PO 500 mg DAILY [facility] Administration A/P Multiple Myeloma Amyloid CHF Anemia Fever LLL atelectasis vs infiltrate UTI On lasix tapering levophed on midodrine/milrinone creatinine improved monitoring cbc/cmp Overall poor prognosis with cardiac and renal amyloid discussed with patient overall guarded/critical prognosis --she would want to be full code but does not want to be transferred to tertiary center as she understands her overall prognosis and wants to continue treatment her. She would like me to communicate her prognosis to her son. Will discuss with teams involved
--- NOTE | 2019-10-08 20:47 | PN ---
Progress Note, Physician - Current Medication List Current Medications: Active Medications Acetaminophen (Tylenol -) 650 mg PO Q6H PRN PRN Reason: FEVER Last Admin: 10/07/19 21:49 Dose: 650 mg Allopurinol (Zyloprim -) 300 mg PO DAILY [facility] Last Admin: 10/08/19 09:35 Dose: 300 mg Aspirin (Ecotrin -) 81 mg PO DAILY [facility] Last Admin: 10/08/19 09:35 Dose: 81 mg Atorvastatin Calcium (Lipitor -) 40 mg PO HS [facility] Last Admin: 10/07/19 21:39 Dose: 40 mg Escitalopram Oxalate (Lexapro -) 10 mg PO DAILY [facility] Last Admin: 10/08/19 09:36 Dose: 10 mg Furosemide (Lasix Injection -) 40 mg IVPUSH DAILY [facility] Last Admin: 10/08/19 11:31 Dose: 40 mg Heparin Sodium (Porcine) (Heparin -) 1,000 unit IVPUSH PRN PRN PRN Reason: APTT 40-49 Heparin Sodium (Porcine) (Heparin -) 5,000 unit IVPUSH PRN PRN PRN Reason: APTT < 40 Hydrocortisone Sodium Succinate (Solu-Cortef -) 50 mg IVPB Q6H-IV [facility] Last Admin: 10/08/19 15:13 Dose: 50 mg Norepinephrine Bitartrate 8, (000 mcg/ Dextrose) 500 mls @ 18.75 mls/hr IV TITR [facility]; Protocol Last Admin: 10/08/19 06:14 Dose: 10 mcg/min, 37.5 mls/hr Milrinone Lactate/Dextrose (Milrinone 20mg/100ml Ivpb -) 20,000 mcg in 100 mls @ 4.311 mls/hr IVPB TITR [facility]; Protocol Last Admin: 10/08/19 11:57 Dose: 0.375 mcg/kg/min, 8.083 mls/hr Heparin Sodium/Dextrose (Heparin Infusion -) 25,000 units in 500 mls @ 20 mls/ hr IVPB TITR [facility]; Protocol Last Admin: 10/08/19 13:29 Dose: 900 units/hr, 18 mls/hr Amiodarone HCl/Dextrose (Nexterone 360 Mg/200 Ml Bag) 360 mg in 200 mls @ 16.667 mls/hr IVPB ASDIR [facility]; Protocol Last Admin: 10/08/19 13:27 Dose: 16.667 mls/hr Ipratropium [place] (Atrovent 0.02% Nebulizer -) 1 amp NEB RQID PRN PRN Reason: Dyspnea Last Admin: 10/06/19 23:11 Dose: 1 amp Ipratropium [place] (Atrovent 0.02% Nebulizer -) 1 amp NEB Q1H PRN PRN Reason: WHEEZING Last Admin: 10/07/19 01:32 Dose: 1 amp Levothyroxine Sodium (Synthroid -) 75 mcg PO DAILY@0700 [facility] Last Admin: 10/08/19 06:02 Dose: 75 mcg Midodrine (Proamatine -) 10 mg PO TID-MID [facility] Last Admin: 10/08/19 17:42 Dose: 10 mg Nystatin (Nystatin) 500,000 unit PO TID [facility] Stop: 10/12/19 22:00 Last Admin: 10/08/19 13:29 Dose: 500,000 unit Pantoprazole Sodium (Protonix -) 40 mg PO DAILY [facility] Last Admin: 10/08/19 09:35 Dose: 40 mg Valacyclovir HCl (Valtrex -) 500 mg PO DAILY [facility] Last Admin: 10/08/19 09:36 Dose: 500 mg - Objective Vital Signs: Vital Signs Temperature 98 F 10/08/19 14:00 Pulse Rate 88 10/08/19 19:53 Respiratory Rate 30 H 10/08/19 19:53 Blood Pressure 98/51 L 10/08/19 19:53 O2 Sat by Pulse Oximetry (%) 98 10/08/19 19:51 Labs: CBC, BMP 10/08/19 06:30 10/08/19 06:30 INR, PTT INR 0.99 (0.83-1.09) 10/07/19 02:55 Problem List - Problems (1) Acute on chronic systolic CHF (congestive heart failure) Code(s): I50.23 - ACUTE ON CHRONIC SYSTOLIC (CONGESTIVE) HEART FAILURE (2) UTI (urinary tract infection) Code(s): N39.0 - URINARY TRACT INFECTION, SITE NOT SPECIFIED (3) HTN (hypertension) Code(s): I10 - ESSENTIAL (PRIMARY) HYPERTENSION Qualifiers: Hypertension type: unspecified Qualified Code(s): I10 - Essential (primary ) hypertension (4) Multiple myeloma Code(s): C90.00 - MULTIPLE MYELOMA NOT HAVING ACHIEVED REMISSION Qualifiers: Multiple myeloma remission status: not in remission Qualified Code(s): C90.00 - Multiple myeloma not having achieved remission (5) HLD (hyperlipidemia) Code(s): E78.5 - HYPERLIPIDEMIA, UNSPECIFIED Qualifiers: Hyperlipidemia type: unspecified Qualified Code(s): E78.5 - Hyperlipidemia , unspecified (6) Hypothyroidism Code(s): E03.9 - HYPOTHYROIDISM, UNSPECIFIED Qualifiers: Hypothyroidism type: acquired Qualified Code(s): E03.9 - Hypothyroidism, unspecified (7) CAD (coronary artery disease) Code(s): I25.10 - ATHSCL HEART DISEASE OF [place] CORONARY ARTERY W/O ANG PCTRS Qualifiers: (8) Depression Code(s): F32.9 - MAJOR DEPRESSIVE DISORDER, SINGLE EPISODE, UNSPECIFIED (9) History of heart artery stent Code(s): Z95.5 - PRESENCE OF CORONARY ANGIOPLASTY IMPLANT AND GRAFT (10) Elevated troponin Code(s): R74.8 - ABNORMAL LEVELS OF OTHER SERUM ENZYMES (11) Diarrhea Code(s): R19.7 - DIARRHEA, UNSPECIFIED Qualifiers: Diarrhea type: unspecified type Qualified Code(s): R19.7 - Diarrhea, unspecified
[2019-10-08] MEDS: ATORVASTATIN CA 40 MG TABLET (FP) PO SCH (21:02)
[2019-10-09] MEDS: HYDROCORTISONE SOD SUCCINATE 100 MG/2 ML VIAL IVPB SCH ×4 (02:09→21:17)
[2019-10-09] MEDS: NOREPINEPHRINE BITARTRATE 8,000 MCG in DEXTROSE 5%-WATER - 492 ML IV SCH (02:09)
[2019-10-09] MEDS: NYSTATIN 500,000 UNITS TABLET PO SCH ×3 (06:03→21:18)
[2019-10-09] MEDS: LEVOTHYROXINE NA 75 MCG TABLET (FP) PO SCH (06:03)
[2019-10-09] MEDS: HEPARIN INFUSION - 25,000 UNITS/500 ML INFUS.BAG IVPB SCH (06:03)
[2019-10-09 07:19] LABS: WHITE BLOOD COUNT 6.2 K/mm3 (4.0-10.0)
[2019-10-09 07:20] LABS: HEMATOCRIT 22.3 % (32.4-45.2); HEMOGLOBIN 7.5 GM/dL (10.7-15.3); MCH 31.6 pg (25.7-33.7); MCHC 33.8 g/dl (32.0-36.0); MEAN CELL VOLUME 93.5 fl (80-96); MEAN PLT VOLUME 8.6 fl (7.5-11.1); PLATELET COUNT 179 K/MM3 (134-434); RBC 2.39 M/mm3 (3.60-5.2); RDW 18.9 % (11.6-15.6)
--- NOTE | 2019-10-09 08:39 | PN ---
Progress Note (short form) - Note Progress Note: RENAL Pt is awake and alert says she is not feeling well cant breathe well no chest pain Last Vital Signs Temp Pulse Resp BP Pulse Ox 97.9 F 86 16 95/51 L 98 10/09/19 06:00 10/09/19 08:00 10/09/19 08:00 10/09/19 08:00 10/08/19 19:51 lungs decreased breath sounds on left cvs s1s2 rr abd soft ext + edema neuro a+ox3 CBC, BMP 10/09/19 06:05 Current Medications Generic Name Dose Route Start Last Admin Trade Name Freq PRN Reason Stop Dose Admin Acetaminophen 650 mg 09/20/19 22:25 10/07/19 21:49 Tylenol - PO 650 mg Q6H PRN Administration FEVER Allopurinol 300 mg 09/21/19 10:00 10/08/19 09:35 Zyloprim - PO 300 mg DAILY [facility] Administration Aspirin 81 mg 09/25/19 10:00 10/08/19 09:35 Ecotrin - PO 81 mg DAILY [facility] Administration Atorvastatin Calcium 40 mg 09/20/19 22:00 10/08/19 21:02 Lipitor - PO 40 mg HS [facility] Administration Escitalopram Oxalate 10 mg 09/21/19 10:00 10/08/19 09:36 Lexapro - PO 10 mg DAILY [facility] Administration Furosemide 40 mg 09/21/19 10:00 10/08/19 11:31 Lasix Injection - IVPUSH 40 mg DAILY [facility] Administration Heparin Sodium (Porcine) 1,000 unit 10/07/19 04:04 Heparin - IVPUSH PRN PRN APTT 40-49 Heparin Sodium (Porcine) 5,000 unit 10/07/19 04:04 Heparin - IVPUSH PRN PRN APTT < 40 Hydrocortisone Sodium Succinate 50 mg 10/07/19 16:00 10/09/19 02:09 Solu-Cortef - IVPB 50 mg Q6H-IV [facility] Administration Norepinephrine Bitartrate 8, 500 mls @ 18.75 mls/hr 09/27/19 22:00 10/09/19 06:54 000 mcg/ Dextrose IV 5 mcg/min TITR [facility] 18.75 mls/hr Titration Protocol 5 MCG/MIN Milrinone Lactate/Dextrose 20,000 mcg in 100 mls @ 4.311 mls/hr 10/05/19 11: 00 10/08/19 11:57 Milrinone 20mg/100ml Ivpb - IVPB 0.375 mcg/kg/min TITR [facility] 8.083 mls/hr Administration Protocol 0.2 MCG/KG/MIN Heparin Sodium/Dextrose 25,000 units in 500 mls @ 20 mls/hr 10/07/19 04:15 06:03 Heparin Infusion - IVPB Not Given TITR [facility] Protocol 1,000 UNITS/HR Amiodarone HCl/Dextrose 360 mg in 200 mls @ 16.667 mls/hr 10/07/19 09:15 05/20 13:27 Nexterone 360 Mg/200 Ml Bag IVPB 16.667 mls/hr ASDIR [facility] Administration Protocol 0.5 MG/MIN Ipratropium [place] 1 amp 10/06/19 22:27 10/06/19 23:11 Atrovent 0.02% Nebulizer - NEB 1 amp RQID PRN Administration Dyspnea Ipratropium [place] 1 amp 10/07/19 01:17 10/07/19 01:32 Atrovent 0.02% Nebulizer - NEB 1 amp Q1H PRN Administration WHEEZING Levothyroxine Sodium 75 mcg 09/21/19 07:00 10/09/19 06:03 Synthroid - PO 75 mcg DAILY@0700 [facility] Administration Midodrine 10 mg 10/06/19 18:00 10/08/19 17:42 Proamatine - PO 10 mg TID-MID [facility] Administration Nystatin 500,000 unit 10/07/19 22:00 10/09/19 06:03 Nystatin PO 10/12/19 22:00 500,000 unit TID [facility] Administration Pantoprazole Sodium 40 mg 09/21/19 10:00 10/08/19 09:35 Protonix - PO 40 mg DAILY [facility] Administration Valacyclovir HCl 500 mg 09/21/19 10:00 10/08/19 09:36 Valtrex - PO 500 mg DAILY [facility] Administration Impression 1. proteinuria/severe hypoalbuminemia 2. multiple myeloma 3. amyloid 4. dizziness 5. hypotension 6. HLD 7. hypothyroidism 8. anemia 9. CKD 10. fluid overload though sats are good 11 nstemi 12.DEBBIE worsening 13 globular heart on xray Plan would try to taper levophed further given elevated troponins echo? to evaluate for pericardial eff check uric acid and if less than 7 would reduce allopurinol which can also affect kidney function MV MV
[2019-10-09 08:49] LABS: ALBUMIN 1.2 g/dl (3.4-5.0); BILIRUBIN,TOTAL 0.2 mg/dL (0.2-1); BLOOD UREA NITROGEN 62.5 mg/dL (7-18); CALCIUM 8.4 mg/dL (8.5-10.1); CREATININE 2.2 mg/dL (0.55-1.3); MAGNESIUM 2.3 mg/dL (1.8-2.4); PHOSPHOROUS 4.8 mg/dL (2.5-4.9); POTASSIUM 5.4 mmol/L (3.5-5.1); TOT PROT 6.7 g/dl (6.4-8.2)
[2019-10-09] MEDS ORDERED: PT OWN MED DRAWER 7, Y5N ONE ×2 (09:10→21:10)
[2019-10-09] MEDS: FUROSEMIDE 40 MG/4 ML INJECTABLE VIAL IVPUSH SCH ×2 (09:25→09:35)
[2019-10-09] MEDS: valACYclovir HCL 500 MG TABLET (FP) PO SCH (09:26)
[2019-10-09] MEDS: PANTOPRAZOLE 40 MG TABLET (FP) PO SCH (09:26)
[2019-10-09] MEDS: MIDODRINE HCL 5 MG TABLET PO SCH ×3 (09:26→17:07)
[2019-10-09] MEDS: ALLOPURINOL 300 MG TABLET (FP) PO SCH (09:26)
[2019-10-09] MEDS: ESCITALOPRAM OXALATE 10 MG TABLET (FP) PO SCH (09:26)
[2019-10-09] MEDS: ASPIRIN COATED 81 MG TABLET.EC PO SCH (09:27)
--- NOTE | 2019-10-09 10:01 | PN ---
Teaching Attending Note Name of Resident: Roger Herr ATTENDING PHYSICIAN STATEMENT I saw and evaluated the patient. I reviewed the resident's note and discussed the case with the resident. I agree with the resident's findings and plan as documented. SUBJECTIVE: Patient seen and examined in the ICU. Awake and alert, but appears weak. Levophed drip at 5mcq. Remains on Milrinone and Amiodarone. Denies shortness of breath or chest pain. OBJECTIVE: Intake & Output 10/06/19 10/07/19 10/08/19 10/09/19 23:59 23:59 23:59 23:59 Intake Total 1205.9 1959.3 2208 864 Output Total 1 1350 50 Balance 1204.9 1959.3 858 814 Weight 160 lb 12.8 oz 159 lb 9.6 oz 171 lb 11.2 oz 168 lb 1.6 oz Last Vital Signs Temp Pulse Resp BP Pulse Ox 97.9 F 86 16 95/51 L 98 10/09/19 06:00 10/09/19 08:00 10/09/19 08:00 10/09/19 08:00 10/08/19 19:51 Active Medications Acetaminophen (Tylenol -) 650 mg PO Q6H PRN PRN Reason: FEVER Last Admin: 10/07/19 21:49 Dose: 650 mg Allopurinol (Zyloprim -) 300 mg PO DAILY [facility] Last Admin: 10/09/19 09:26 Dose: 300 mg Aspirin (Ecotrin -) 81 mg PO DAILY [facility] Last Admin: 10/09/19 09:27 Dose: 81 mg Atorvastatin Calcium (Lipitor -) 40 mg PO HS [facility] Last Admin: 10/08/19 21:02 Dose: 40 mg Escitalopram Oxalate (Lexapro -) 10 mg PO DAILY [facility] Last Admin: 10/09/19 09:26 Dose: 10 mg Furosemide (Lasix Injection -) 40 mg IVPUSH DAILY [facility] Last Admin: 10/09/19 09:35 Dose: Not Given Heparin Sodium (Porcine) (Heparin -) 1,000 unit IVPUSH PRN PRN PRN Reason: APTT 40-49 Heparin Sodium (Porcine) (Heparin -) 5,000 unit IVPUSH PRN PRN PRN Reason: APTT < 40 Hydrocortisone Sodium Succinate (Solu-Cortef -) 50 mg IVPB Q6H-IV [facility] Last Admin: 10/09/19 09:26 Dose: 50 mg Norepinephrine Bitartrate 8, (000 mcg/ Dextrose) 500 mls @ 18.75 mls/hr IV TITR [facility]; Protocol Last Titration: 10/09/19 06:54 Dose: 5 mcg/min, 18.75 mls/hr Milrinone Lactate/Dextrose (Milrinone 20mg/100ml Ivpb -) 20,000 mcg in 100 mls @ 4.311 mls/hr IVPB TITR [facility]; Protocol Last Titration: 10/09/19 09:47 Dose: 0.5 mcg/kg/min, 10.777 mls/hr Heparin Sodium/Dextrose (Heparin Infusion -) 25,000 units in 500 mls @ 20 mls/ hr IVPB TITR [facility]; Protocol Last Admin: 10/09/19 06:03 Dose: Not Given Amiodarone HCl/Dextrose (Nexterone 360 Mg/200 Ml Bag) 360 mg in 200 mls @ 16.667 mls/hr IVPB [facility]IR [facility]; Protocol Last Admin: 10/08/19 13:27 Dose: 16.667 mls/hr Ipratropium [place] (Atrovent 0.02% Nebulizer -) 1 amp NEB RQID PRN PRN Reason: Dyspnea Last Admin: 10/06/19 23:11 Dose: 1 amp Ipratropium [place] (Atrovent 0.02% Nebulizer -) 1 amp NEB Q1H PRN PRN Reason: WHEEZING Last Admin: 10/07/19 01:32 Dose: 1 amp Levothyroxine Sodium (Synthroid -) 75 mcg PO DAILY@0700 [facility] Last Admin: 10/09/19 06:03 Dose: 75 mcg Midodrine (Proamatine -) 10 mg PO TID-MID [facility] Last Admin: 10/09/19 09:26 Dose: 10 mg Nystatin (Nystatin) 500,000 unit PO TID [facility] Stop: 10/12/19 22:00 Last Admin: 10/09/19 06:03 Dose: 500,000 unit Pantoprazole Sodium (Protonix -) 40 mg PO DAILY [facility] Last Admin: 10/09/19 09:26 Dose: 40 mg Valacyclovir HCl (Valtrex -) 500 mg PO DAILY [facility] Last Admin: 10/09/19 09:26 Dose: 500 mg Gen: Awake and alert, weak appearing Heart: RRR Lung: Bibasilar rales and rhonchi Abd: soft, nontender Ext: slightly less peripheral edema Laboratory Results - last 24 hr 10/08/19 10/09/19 10/09/19 15:00 06:05 06:05 WBC 6.2 RBC 2.39 L Hgb 7.5 L Hct 22.3 L MCV 93.5 MCH 31.6 MCHC 33.8 RDW 18.9 H Plt Count 179 MPV 8.6 PTT (Actin FS) 60.5 H 58.9 H Sodium Potassium Chloride Carbon Dioxide Anion Gap BUN Creatinine Est GFR (CKD-EPI)AfAm Est GFR (CKD-EPI)NonAf Random Glucose Calcium Phosphorus Magnesium Total Bilirubin AST ALT Alkaline Phosphatase Troponin I Total Protein Albumin 10/09/19 06:05 WBC RBC Hgb Hct MCV MCH MCHC RDW Plt Count MPV PTT (Actin FS) Sodium 129 L Potassium 5.4 H Chloride 92 L Carbon Dioxide 23 Anion Gap 13 BUN 62.5 H Creatinine 2.2 H Est GFR (CKD-EPI)AfAm 24.60 Est GFR (CKD-EPI)NonAf 21.23 Random Glucose 131 H Calcium 8.4 L Phosphorus 4.8 Magnesium 2.3 Total Bilirubin 0.2 AST 235 H ALT 187 H Alkaline Phosphatase 62 Troponin I 9.85 H* Total Protein 6.7 Albumin 1.2 L ASSESSMENT AND PLAN: Acute on Chronic Systolic Heart Failure Cardiogenic Shock Acute on Chronic Renal Failure CAD Pneumonia Asthma Multiple Myeloma HTN Hyperlipidemia Hypothyroidism Anemia - Increase Milrinone to 0.5 - Lasix - Taper off levophed gtt, would tolerate MAP >55 as long as urine output adequate - Monitor urine output, creatinine - Daily weights - completed antibiotics - O2 to keep SpO2 >90% - inhaled bronchodilators as needed - DVT prophylaxis - May benefit from transfer to tertiary care - Continued ICU monitoring for pressors Dr Bacon Critical care time spent in reviewing chart, evaluating patient and formulating plan 35 min
--- NOTE | 2019-10-09 10:18 | PN ---
Progress Note, Physician Chief Complaint: Events noted Coverage for Dr. Burgess Currently on Levophed, Amiodarone drip and Milrinone drip according to MAP History of Present Illness: Patient was seen and examined in ICU. Awake. Chart was reviewed Denies chest pain. High concentration O2 via NC tolerating therapy Remains in sinus rhythm Patient is reluctant to be transferred to a tertiary care center - Current Medication List Current Medications: Active Medications Acetaminophen (Tylenol -) 650 mg PO Q6H PRN PRN Reason: FEVER Last Admin: 10/07/19 21:49 Dose: 650 mg Allopurinol (Zyloprim -) 300 mg PO DAILY [facility] Last Admin: 10/09/19 09:26 Dose: 300 mg Aspirin (Ecotrin -) 81 mg PO DAILY [facility] Last Admin: 10/09/19 09:27 Dose: 81 mg Atorvastatin [place] (Lipitor -) 40 mg PO HS [facility] Last Admin: 10/08/19 21:02 Dose: 40 mg Escitalopram Oxalate (Lexapro -) 10 mg PO DAILY [facility] Last Admin: 10/09/19 09:26 Dose: 10 mg Furosemide (Lasix Injection -) 40 mg IVPUSH DAILY [facility] Last Admin: 10/09/19 09:35 Dose: Not Given Heparin Sodium (Porcine) (Heparin -) 1,000 unit IVPUSH PRN PRN PRN Reason: APTT 40-49 Heparin Sodium (Porcine) (Heparin -) 5,000 unit IVPUSH PRN PRN PRN Reason: APTT < 40 Hydrocortisone Sodium Succinate (Solu-Cortef -) 50 mg IVPB Q6H-IV [facility] Last Admin: 10/09/19 09:26 Dose: 50 mg Norepinephrine Bitartrate 8, (000 mcg/ Dextrose) 500 mls @ 18.75 mls/hr IV TITR [facility]; Protocol Last Titration: 10/09/19 06:54 Dose: 5 mcg/min, 18.75 mls/hr Milrinone Lactate/Dextrose (Milrinone 20mg/100ml Ivpb -) 20,000 mcg in 100 mls @ 4.311 mls/hr IVPB TITR [facility]; Protocol Last Titration: 10/09/19 09:47 Dose: 0.5 mcg/kg/min, 10.777 mls/hr Heparin Sodium/Dextrose (Heparin Infusion -) 25,000 units in 500 mls @ 20 mls/ hr IVPB TITR [facility]; Protocol Last Admin: 10/09/19 06:03 Dose: Not Given Amiodarone HCl/Dextrose (Nexterone 360 Mg/200 Ml Bag) 360 mg in 200 mls @ 16.667 mls/hr IVPB ASDIR [facility]; Protocol Last Admin: 10/08/19 13:27 Dose: 16.667 mls/hr Ipratropium [place] (Atrovent 0.02% Nebulizer -) 1 amp NEB RQID PRN PRN Reason: Dyspnea Last Admin: 10/06/19 23:11 Dose: 1 amp Ipratropium [place] (Atrovent 0.02% Nebulizer -) 1 amp NEB Q1H PRN PRN Reason: WHEEZING Last Admin: 10/07/19 01:32 Dose: 1 amp Levothyroxine Sodium (Synthroid -) 75 mcg PO DAILY@0700 [facility] Last Admin: 10/09/19 06:03 Dose: 75 mcg Midodrine (Proamatine -) 10 mg PO TID-MID [facility] Last Admin: 10/09/19 09:26 Dose: 10 mg Nystatin (Nystatin) 500,000 unit PO TID [facility] Stop: 10/12/19 22:00 Last Admin: 10/09/19 06:03 Dose: 500,000 unit Pantoprazole Sodium (Protonix -) 40 mg PO DAILY [facility] Last Admin: 10/09/19 09:26 Dose: 40 mg Valacyclovir HCl (Valtrex -) 500 mg PO DAILY [facility] Last Admin: 10/09/19 09:26 Dose: 500 mg - Objective Vital Signs: Vital Signs Temperature 97.9 F 10/09/19 06:00 Pulse Rate 86 10/09/19 08:00 Respiratory Rate 16 10/09/19 08:00 Blood Pressure 95/51 L 10/09/19 08:00 O2 Sat by Pulse Oximetry (%) 98 10/08/19 19:51 Eyes: Yes: PERRL HENT: Yes: Atraumatic Neck: Yes: Supple Cardiovascular: Yes: Regular Rate and Rhythm, S1, S2 Respiratory: Yes: Diminished, On Nasal O2 Gastrointestinal: Yes: Normal Bowel Sounds, Soft. No: Tenderness Edema: No Labs: CBC, BMP 10/09/19 06:05 10/09/19 06:05 - ....Imaging Chest X-ray: Report Reviewed (No significant improvement) Problem List - Problems (1) NSTEMI (non-ST elevated myocardial infarction) Code(s): I21.4 - NON-ST ELEVATION (NSTEMI) MYOCARDIAL INFARCTION (2) ASHD (arteriosclerotic heart disease) Code(s): I25.10 - ATHSCL HEART DISEASE OF [place] CORONARY ARTERY W/O ANG PCTRS (3) Acute on chronic renal failure Code(s): N17.9 - ACUTE KIDNEY FAILURE, UNSPECIFIED; N18.9 - CHRONIC KIDNEY DISEASE, UNSPECIFIED Qualifiers: Chronic kidney disease stage: stage 2 (mild) (4) Acute on chronic systolic CHF (congestive heart failure) Code(s): I50.23 - ACUTE ON CHRONIC SYSTOLIC (CONGESTIVE) HEART FAILURE (5) Acute respiratory failure Code(s): J96.00 - ACUTE RESPIRATORY FAILURE, UNSP W HYPOXIA OR HYPERCAPNIA (6) Anemia Code(s): D64.9 - ANEMIA, UNSPECIFIED Qualifiers: Chronic kidney disease stage: unspecified stage (7) CHF (congestive heart failure) Code(s): I50.9 - HEART FAILURE, UNSPECIFIED Qualifiers: Heart failure type: systolic Heart failure chronicity: unspecified Qualified Code(s): I50.20 - Unspecified systolic (congestive) heart failure (8) Elevated troponin Code(s): R74.8 - ABNORMAL LEVELS OF OTHER SERUM ENZYMES (9) HLD (hyperlipidemia) Code(s): E78.5 - HYPERLIPIDEMIA, UNSPECIFIED Qualifiers: Hyperlipidemia type: unspecified Qualified Code(s): E78.5 - Hyperlipidemia , unspecified (10) Hypotension Code(s): I95.9 - HYPOTENSION, UNSPECIFIED Qualifiers: Hypotension type: other hypotension type Qualified Code(s): I95.89 - Other hypotension (11) Hypothyroidism Code(s): E03.9 - HYPOTHYROIDISM, UNSPECIFIED (12) Multiple myeloma Code(s): C90.00 - MULTIPLE MYELOMA NOT HAVING ACHIEVED REMISSION Assessment/Plan 1. Acute on chronic LV systolic failure with cardiogenic shock 2. PAF currently in sinus rhythm 3. Elevated troponin due to NSTEMI, underlying CAD post PCI/stent 4. Multiple Myeloma 5. Amyloid 6. Hyperlipidemia 7. CKD 8. Anemia due to chronic disease PLAN: 1. Continue current ICU management per critical care team 2. Taper Levophed as tolerated and titrate up Milrinone and keep MAP>55 3. Amiodarone drip can be tapered and eventually switched to PO 4. Heparin drip to be continued 5. Hematology input to follow 6. Monitor renal function and electrolytes 7. Transfuse as needed 8. Trend troponin currently appears to have peaked at 26 and now 9.65 9. Review of chart reveals discussion regarding possible transfer to tertiary care center for treatment of refractory severe systolic heart failure with potential IABP. Currently patient refuses to be transferred. Continue supportive care Critical spent 35 min in ICU Discussed with Critical care team Praveen Woodruff MD
--- NOTE | 2019-10-09 10:42 | PN ---
Physical Exam: SUBJECTIVE: Patient seen and examined by the bedside. States she has been up all night considering DNR/DNI status. Educated her about what the decision would mean, states she would like to sign paperwork. Not complaining of any pain or SOB. OBJECTIVE: Vital Signs Period Temp Pulse Resp BP Sys/Moss Pulse Ox Last 24 Hr 97.9 F-98.5 F 85-95 15-30 91-99/43-59 98 GENERAL: AOx3 HEAD: Normal with no signs of trauma. EYES: EOMI, ZOILA ENT: dry mucous membranes NECK: Trachea midline LUNGS: Decreased sounds B/L, clear with no wheezes, no crackles, no accessory muscle use. HEART: RRR, S1, S2 without murmur, rub or gallop. ABDOMEN: Soft, nontender, nondistended, normoactive bowel sounds, no guarding EXTREMITIES: +edema of bilateral lower extremities improved compared to yesterday, 2+ pulses, warm, well-perfused NEUROLOGICAL: Normal speech, gait not observed. SKIN: Warm, dry Laboratory Results - last 24 hr 10/08/19 10/09/19 10/09/19 15:00 06:05 06:05 WBC 6.2 RBC 2.39 L Hgb 7.5 L Hct 22.3 L MCV 93.5 MCH 31.6 MCHC 33.8 RDW 18.9 H Plt Count 179 MPV 8.6 PTT (Actin FS) 60.5 H 58.9 H Sodium Potassium Chloride Carbon Dioxide Anion Gap BUN Creatinine Est GFR (CKD-EPI)AfAm Est GFR (CKD-EPI)NonAf Random Glucose Calcium Phosphorus Magnesium Total Bilirubin AST ALT Alkaline Phosphatase Troponin I Total Protein Albumin 10/09/19 06:05 WBC RBC Hgb Hct MCV MCH MCHC RDW Plt Count MPV PTT (Actin FS) Sodium 129 L Potassium 5.4 H Chloride 92 L Carbon Dioxide 23 Anion Gap 13 BUN 62.5 H Creatinine 2.2 H Est GFR (CKD-EPI)AfAm 24.60 Est GFR (CKD-EPI)NonAf 21.23 Random Glucose 131 H Calcium 8.4 L Phosphorus 4.8 Magnesium 2.3 Total Bilirubin 0.2 AST 235 H ALT 187 H Alkaline Phosphatase 62 Troponin I 9.85 H* Total Protein 6.7 Albumin 1.2 L Active Medications Generic Name Dose Route Start Last Admin Trade Name Freq PRN Reason Stop Dose Admin Acetaminophen 650 mg 09/20/19 22:25 10/07/19 21:49 Tylenol - PO 650 mg Q6H PRN Administration FEVER Allopurinol 300 mg 09/21/19 10:00 10/09/19 09:26 Zyloprim - PO 300 mg DAILY [facility] Administration Aspirin 81 mg 09/25/19 10:00 10/09/19 09:27 Ecotrin - PO 81 mg DAILY [facility] Administration Atorvastatin Calcium 40 mg 09/20/19 22:00 10/08/19 21:02 Lipitor - PO 40 mg HS [facility] Administration Escitalopram Oxalate 10 mg 09/21/19 10:00 10/09/19 09:26 Lexapro - PO 10 mg DAILY [facility] Administration Furosemide 40 mg 09/21/19 10:00 10/09/19 09:35 Lasix Injection - IVPUSH Not Given DAILY [facility] Heparin Sodium (Porcine) 1,000 unit 10/07/19 04:04 Heparin - IVPUSH PRN PRN APTT 40-49 Heparin Sodium (Porcine) 5,000 unit 10/07/19 04:04 Heparin - IVPUSH PRN PRN APTT < 40 Hydrocortisone Sodium Succinate 50 mg 10/07/19 16:00 10/09/19 09:26 Solu-Cortef - IVPB 50 mg Q6H-IV [facility] Administration Norepinephrine Bitartrate 8, 500 mls @ 18.75 mls/hr 09/27/19 22:00 10/09/19 06:54 000 mcg/ Dextrose IV 5 mcg/min TITR [facility] 18.75 mls/hr Titration Protocol 5 MCG/MIN Milrinone Lactate/Dextrose 20,000 mcg in 100 mls @ 4.311 mls/hr 10/05/19 11: 00 10/09/19 09:47 Milrinone 20mg/100ml Ivpb - IVPB 0.5 mcg/kg/min TITR [facility] 10.777 mls/hr Titration Protocol 0.2 MCG/KG/MIN Heparin Sodium/Dextrose 25,000 units in 500 mls @ 20 mls/hr 10/07/19 04:15 06:03 Heparin Infusion - IVPB Not Given TITR [facility] Protocol 1,000 UNITS/HR Amiodarone HCl/Dextrose 360 mg in 200 mls @ 16.667 mls/hr 10/07/19 09:15 05/20 13:27 Nexterone 360 Mg/200 Ml Bag IVPB 16.667 mls/hr ASDIR [facility] Administration Protocol 0.5 MG/MIN Ipratropium [place] 1 amp 10/06/19 22:27 10/06/19 23:11 Atrovent 0.02% Nebulizer - NEB 1 amp RQID PRN Administration Dyspnea Ipratropium [place] 1 amp 10/07/19 01:17 10/07/19 01:32 Atrovent 0.02% Nebulizer - NEB 1 amp Q1H PRN Administration WHEEZING Levothyroxine Sodium 75 mcg 09/21/19 07:00 10/09/19 06:03 Synthroid - PO 75 mcg DAILY@0700 [facility] Administration Midodrine 10 mg 10/06/19 18:00 10/09/19 09:26 Proamatine - PO 10 mg TID-MID [facility] Administration Nystatin 500,000 unit 10/07/19 22:00 10/09/19 06:03 Nystatin PO 10/12/19 22:00 500,000 unit TID [facility] Administration Pantoprazole Sodium 40 mg 09/21/19 10:00 10/09/19 09:26 Protonix - PO 40 mg DAILY [facility] Administration Valacyclovir HCl 500 mg 09/21/19 10:00 10/09/19 09:26 Valtrex - PO 500 mg DAILY [facility] Administration ASSESSMENT/PLAN: 73 y/o/f with PMHx of multiple myeloma (currently on treatment), amyloidosis, chronic anemia, hypertension, hyperlipidemia, hypothyroidism, GERD, admitted for UGIB, renal failure, volume overload, transferred to the ICU for hypotension refractory to IVF boluses. Suffered TX on 10/06. #Neuro - AAOx3 #Cardiovascular - Cardiogenic shock: Milrinone increased to 0.5, Midodrine 10mg PO. Attempt to wean off Levophed. MAP target 60-65 - Cardio recs: Continue Heparin drip, attempt to wean off Levophed, will see if patient will benefit from transfer to tertiary care center - Continue home meds Aspirin 81mg, Atorvastatin 40mg - started on Hydrocortisone 50mg Q6hr for BP support - Trop peaked at 26.4, most recent at 21.1 #Pulm - CXR: worsening progressive changes - Duonebs as needed - Continue Lasix 40mg IV #Renal - BUN/Cr: 39.8/0.8 -> 37.1/0.6 -> 37.1/0.7 -> 42.8/1.5 -> 50.4/1.8 - Renal function worsening, likely from hypotension - Nephro recs: check uric acid and if less than 7 would reduce allopurinol which can also affect kidney function - Candidate for cvvhdf if renal function continues to worsen #Heme/Onc - Multiple Myeloma: Continue Lokelma, Allopurinol - Hg 8.2 -> 7.4 -> 6.9 -> 8.1 -> 7.5 - Transfused 1unit PRBC 10/07. Target Hgb 8 #ID - ID recs: Stop abx, was previously on Meropenem #Endo - Hx of hypothyroidism - Continue levothyroxine #FEN - Na controlled diet #Prophylaxis - SCDs - K+ 5.4 - Heparin drip @ 900 units/HR #Dispo - DNR only, not DNI - ICU monitoring, possible transfer to tertiary center pending Dr. Burgess's return on Thursday Visit type - Emergency Visit Emergency Visit: Yes ED Registration Date: 09/20/19 Care time: The patient presented to the Emergency Department on the above date and was hospitalized for further evaluation of their emergent condition. - New Patient This patient is new to me today: No - Critical Care Critical Care patient: Yes Total Critical Care Time (in minutes): 38 Critical Care Statement: The care of this patient involved high complexity decision making to prevent further life threatening deterioration of the patient 's condition and/or to evaluate & treat vital organ system(s) failure or risk of failure. ATTENDING PHYSICIAN STATEMENT I saw and evaluated the patient. I reviewed the resident's note and discussed the case with the resident. I agree with the resident's findings and plan as documented. SUBJECTIVE: OBJECTIVE: ASSESSMENT AND PLAN:
[2019-10-09] MEDS: AMIODARONE IN DEXTROSE,ISO-OSM 360 MG/200 ML BAG IVPB SCH (14:12)
[2019-10-09] MEDS: MILRINONE 20MG/100ML IVPB - 20,000 MCG/100 ML ML IVPB SCH (14:12)
--- NOTE | 2019-10-09 17:13 | PN ---
Progress Note, Physician History of Present Illness: Pt is alert but weak, stating she doesn't feel as well as yesterday. On Levophed drip, HR controlled. Remains afebrile. - Current Medication List Current Medications: Active Medications Acetaminophen (Tylenol -) 650 mg PO Q6H PRN PRN Reason: FEVER Last Admin: 10/07/19 21:49 Dose: 650 mg Allopurinol (Zyloprim -) 300 mg PO DAILY [facility] Last Admin: 10/09/19 09:26 Dose: 300 mg Aspirin (Ecotrin -) 81 mg PO DAILY [facility] Last Admin: 10/09/19 09:27 Dose: 81 mg Atorvastatin Calcium (Lipitor -) 40 mg PO HS [facility] Last Admin: 10/08/19 21:02 Dose: 40 mg Escitalopram Oxalate (Lexapro -) 10 mg PO DAILY [facility] Last Admin: 10/09/19 09:26 Dose: 10 mg Furosemide (Lasix Injection -) 40 mg IVPUSH DAILY [facility] Last Admin: 10/09/19 09:35 Dose: Not Given Heparin Sodium (Porcine) (Heparin -) 1,000 unit IVPUSH PRN PRN PRN Reason: APTT 40-49 Heparin Sodium (Porcine) (Heparin -) 5,000 unit IVPUSH PRN PRN PRN Reason: APTT < 40 Hydrocortisone Sodium Succinate (Solu-Cortef -) 50 mg IVPB Q6H-IV [facility] Last Admin: 10/09/19 14:14 Dose: 50 mg Norepinephrine Bitartrate 8, (000 mcg/ Dextrose) 500 mls @ 18.75 mls/hr IV TITR [facility]; Protocol Last Titration: 10/09/19 06:54 Dose: 5 mcg/min, 18.75 mls/hr Milrinone Lactate/Dextrose (Milrinone 20mg/100ml Ivpb -) 20,000 mcg in 100 mls @ 4.311 mls/hr IVPB TITR [facility]; Protocol Last Admin: 10/09/19 14:12 Dose: 0.5 mcg/kg/min, 10.777 mls/hr Heparin Sodium/Dextrose (Heparin Infusion -) 25,000 units in 500 mls @ 20 mls/ hr IVPB TITR [facility]; Protocol Last Admin: 10/09/19 06:03 Dose: Not Given Amiodarone HCl/Dextrose (Nexterone 360 Mg/200 Ml Bag) 360 mg in 200 mls @ 16.667 mls/hr IVPB ASDIR [facility]; Protocol Last Admin: 10/09/19 14:12 Dose: 16.667 mls/hr Ipratropium [place] (Atrovent 0.02% Nebulizer -) 1 amp NEB RQID PRN PRN Reason: Dyspnea Last Admin: 10/06/19 23:11 Dose: 1 amp Ipratropium [place] (Atrovent 0.02% Nebulizer -) 1 amp NEB Q1H PRN PRN Reason: WHEEZING Last Admin: 10/07/19 01:32 Dose: 1 amp Levothyroxine Sodium (Synthroid -) 75 mcg PO DAILY@0700 [facility] Last Admin: 10/09/19 06:03 Dose: 75 mcg Midodrine (Proamatine -) 10 mg PO TID-MID [facility] Last Admin: 10/09/19 17:07 Dose: 10 mg Nystatin (Nystatin) 500,000 unit PO TID [facility] Stop: 10/12/19 22:00 Last Admin: 10/09/19 14:14 Dose: 500,000 unit Pantoprazole Sodium (Protonix -) 40 mg PO DAILY [facility] Last Admin: 10/09/19 09:26 Dose: 40 mg Valacyclovir HCl (Valtrex -) 500 mg PO DAILY [facility] Last Admin: 10/09/19 09:26 Dose: 500 mg - Objective Vital Signs: Vital Signs Temperature 98 F 10/09/19 14:00 Pulse Rate 85 10/09/19 16:00 Respiratory Rate 18 10/09/19 16:00 Blood Pressure 99/50 L 10/09/19 16:00 O2 Sat by Pulse Oximetry (%) 100 10/09/19 10:00 Constitutional: Yes: No Distress Eyes: Yes: Conjunctiva Clear HENT: Yes: Atraumatic Cardiovascular: Yes: Regular Rate and Rhythm Respiratory: Yes: Rales (bases) Gastrointestinal: Yes: Normal Bowel Sounds, Soft Genitourinary: Yes: [place] Present Extremities: Yes: WNL Integumentary: Yes: WNL Neurological: Yes: Alert, Weakness Labs: CBC, BMP 10/09/19 06:05 10/09/19 06:05 INR, PTT INR 0.99 (0.83-1.09) 10/07/19 02:55 Microbiology 09/20/19 04:16 Blood - Peripheral Venous Blood Culture - Final NO GROWTH AFTER 5 DAYS INCUBATION 09/20/19 06:26 Urine - Urine Clean Catch Urine Culture - Final Strep Agalactiae Group B Problem List - Problems (1) Depression Code(s): F32.9 - MAJOR DEPRESSIVE DISORDER, SINGLE EPISODE, UNSPECIFIED (2) ASHD (arteriosclerotic heart disease) Code(s): I25.10 - ATHSCL HEART DISEASE OF [place] CORONARY ARTERY W/O [facility] PCTRS (3) Acute on chronic renal failure Code(s): N17.9 - ACUTE KIDNEY FAILURE, UNSPECIFIED; N18.9 - CHRONIC KIDNEY DISEASE, UNSPECIFIED Qualifiers: Chronic kidney disease stage: stage 2 (mild) (4) Acute on chronic systolic CHF (congestive heart failure) Code(s): I50.23 - ACUTE ON CHRONIC SYSTOLIC (CONGESTIVE) HEART FAILURE (5) Anemia Code(s): D64.9 - ANEMIA, UNSPECIFIED Qualifiers: Chronic kidney disease stage: unspecified stage (6) CAD (coronary artery disease) Code(s): I25.10 - ATHSCL HEART DISEASE OF [place] CORONARY ARTERY W/O [facility] PCTRS Qualifiers: (7) CHF (congestive heart failure) Code(s): I50.9 - HEART FAILURE, UNSPECIFIED Qualifiers: Heart failure type: systolic Heart failure chronicity: unspecified Qualified Code(s): I50.20 - Unspecified systolic (congestive) heart failure (8) Hypothyroidism Code(s): E03.9 - HYPOTHYROIDISM, UNSPECIFIED Qualifiers: Hypothyroidism type: acquired Qualified Code(s): E03.9 - Hypothyroidism, unspecified (9) Multiple myeloma Code(s): C90.00 - MULTIPLE MYELOMA NOT HAVING ACHIEVED REMISSION Qualifiers: Multiple myeloma remission status: not in remission Qualified Code(s): C90.00 - Multiple myeloma not having achieved remission Assessment/Plan UTI Acute on Chronic HF Shock DEBBIE on CKD Multiple Myeloma Amyloid CAD Anemia Hypothyroidism Asthma Depression -- Pt remains on Levophed, afebrile -- s/p course of IV antibiotics -- appears weak but in no distress continue monitor cc: 38 min
--- NOTE | 2019-10-09 18:38 | PN ---
Progress Note, Physician History of Present Illness: Long d/w pt about transfer to tertiary center wc she is refusing still at this time - Current Medication List Current Medications: Active Medications Acetaminophen (Tylenol -) 650 mg PO Q6H PRN PRN Reason: FEVER Last Admin: 10/07/19 21:49 Dose: 650 mg Allopurinol (Zyloprim -) 300 mg PO DAILY [facility] Last Admin: 10/09/19 09:26 Dose: 300 mg Aspirin (Ecotrin -) 81 mg PO DAILY [facility] Last Admin: 10/09/19 09:27 Dose: 81 mg Atorvastatin Calcium (Lipitor -) 40 mg PO HS [facility]O Last Admin: 10/08/19 21:02 Dose: 40 mg Escitalopram Oxalate (Lexapro -) 10 mg PO DAILY [facility] Last Admin: 10/09/19 09:26 Dose: 10 mg Furosemide (Lasix Injection -) 40 mg IVPUSH DAILY [facility] Last Admin: 10/09/19 09:35 Dose: Not Given Heparin Sodium (Porcine) (Heparin -) 1,000 unit IVPUSH PRN PRN PRN Reason: APTT 40-49 Heparin Sodium (Porcine) (Heparin -) 5,000 unit IVPUSH PRN PRN PRN Reason: APTT < 40 Hydrocortisone Sodium Succinate (Solu-Cortef -) 50 mg IVPB Q6H-IV [facility] Last Admin: 10/09/19 14:14 Dose: 50 mg Norepinephrine Bitartrate 8, (000 mcg/ Dextrose) 500 mls @ 18.75 mls/hr IV TITR [facility]; Protocol Last Titration: 10/09/19 06:54 Dose: 5 mcg/min, 18.75 mls/hr Milrinone Lactate/Dextrose (Milrinone 20mg/100ml Ivpb -) 20,000 mcg in 100 mls @ 4.311 mls/hr IVPB TITR [facility]; Protocol Last Admin: 10/09/19 14:12 Dose: 0.5 mcg/kg/min, 10.777 mls/hr Heparin Sodium/Dextrose (Heparin Infusion -) 25,000 units in 500 mls @ 20 mls/ hr IVPB TITR [facility]; Protocol Last Admin: 10/09/19 06:03 Dose: Not Given Amiodarone HCl/Dextrose (Nexterone 360 Mg/200 Ml Bag) 360 mg in 200 mls @ 16.667 mls/hr IVPB ASDIR [facility]; Protocol Last Admin: 10/09/19 14:12 Dose: 16.667 mls/hr Ipratropium [place] (Atrovent 0.02% Nebulizer -) 1 amp NEB RQID PRN PRN Reason: Dyspnea Last Admin: 10/06/19 23:11 Dose: 1 amp Ipratropium [place] (Atrovent 0.02% Nebulizer -) 1 amp NEB Q1H PRN PRN Reason: WHEEZING Last Admin: 10/07/19 01:32 Dose: 1 amp Levothyroxine Sodium (Synthroid -) 75 mcg PO DAILY@0700 [facility] Last Admin: 10/09/19 06:03 Dose: 75 mcg Midodrine (Proamatine -) 10 mg PO TID-MID [facility] Last Admin: 10/09/19 17:07 Dose: 10 mg Nystatin (Nystatin) 500,000 unit PO TID [facility] Stop: 10/12/19 22:00 Last Admin: 10/09/19 14:14 Dose: 500,000 unit Pantoprazole Sodium (Protonix -) 40 mg PO DAILY [facility] Last Admin: 10/09/19 09:26 Dose: 40 mg Valacyclovir HCl (Valtrex -) 500 mg PO DAILY [facility] Last Admin: 10/09/19 09:26 Dose: 500 mg - Objective Vital Signs: Vital Signs Temperature 98 F 10/09/19 14:00 Pulse Rate 85 10/09/19 16:00 Respiratory Rate 18 10/09/19 16:00 Blood Pressure 99/50 L 10/09/19 16:00 O2 Sat by Pulse Oximetry (%) 100 10/09/19 10:00 Cardiovascular: Yes: WNL, Regular Rate and Rhythm Respiratory: Yes: Rales Gastrointestinal: Yes: WNL, Normal Bowel Sounds, Soft Edema: LUE: 1+, RUE: 1+, LLE: 1+, RLE: 1+ Labs: CBC, BMP 10/09/19 06:05 10/09/19 06:05 INR, PTT INR 0.99 (0.83-1.09) 10/07/19 02:55 Problem List - Problems (1) Elevated troponin Assessment/Plan: Troponin increased to 26 however it is now 9.8 Cont to monitor Cont IV heparin/amiodarone Code(s): R74.8 - ABNORMAL LEVELS OF OTHER SERUM ENZYMES (2) Acute on chronic systolic CHF (congestive heart failure) Assessment/Plan: Cont IV lasix Monitor electrolytes Levophed to be tapered off as tolerated Spoke to pt about transfer to tertiary center for further management however pt is refusing Pt is DNR Code(s): I50.23 - ACUTE ON CHRONIC SYSTOLIC (CONGESTIVE) HEART FAILURE (3) Multiple myeloma Assessment/Plan: Pt has been receiving chemotx and recently RT As per onco Code(s): C90.00 - MULTIPLE MYELOMA NOT HAVING ACHIEVED REMISSION Qualifiers: Multiple myeloma remission status: not in remission Qualified Code(s): C90.00 - Multiple myeloma not having achieved remission (4) HLD (hyperlipidemia) Assessment/Plan: DC lipitor due to increasing LFT's Code(s): E78.5 - HYPERLIPIDEMIA, UNSPECIFIED Qualifiers: Hyperlipidemia type: unspecified Qualified Code(s): E78.5 - Hyperlipidemia , unspecified (5) Hypothyroidism Assessment/Plan: Cont levothyroxine Check TSH Code(s): E03.9 - HYPOTHYROIDISM, UNSPECIFIED Qualifiers: Hypothyroidism type: acquired Qualified Code(s): E03.9 - Hypothyroidism, unspecified (6) CAD (coronary artery disease) Code(s): I25.10 - ATHSCL HEART DISEASE OF [place] CORONARY ARTERY W/O ANG PCTRS Qualifiers: (7) Depression Assessment/Plan: Cont lexapro Code(s): F32.9 - MAJOR DEPRESSIVE DISORDER, SINGLE EPISODE, UNSPECIFIED (8) History of heart artery stent Code(s): Z95.5 - PRESENCE OF CORONARY ANGIOPLASTY IMPLANT AND GRAFT (9) Diarrhea Assessment/Plan: Now resolved Cause of dehydration/hypotension Code(s): R19.7 - DIARRHEA, UNSPECIFIED Qualifiers: Diarrhea type: unspecified type Qualified Code(s): R19.7 - Diarrhea, unspecified (10) UTI (urinary tract infection) Assessment/Plan: Due to strept agalactiae Now resolved Treated w/ IV meropenem Code(s): N39.0 - URINARY TRACT INFECTION, SITE NOT SPECIFIED
--- NOTE | 2019-10-09 19:05 | PN ---
Progress Note (short form) - Note Progress Note: Patient seen and examiend Shortness of breath improved renal function worsened Last Vital Signs Temp Pulse Resp BP Pulse Ox 98.2 F 80 16 100/54 L 100 10/09/19 18:00 10/09/19 18:00 10/09/19 18:00 10/09/19 18:00 10/09/19 10:00 Cor: RSR, No murmurs, No gallops Lungs: decreased at bases Abd: Soft, Normal bowel sounds, No organomegaly Ext:No significant edema Labs/Meds reviewed A/P Multiple Myeloma Amyloid CHF Anemia Fever LLL atelectasis vs infiltrate UTI On lasix tapering levophed on midodrine/milrinone creatinine improved monitoring cbc/cmp Overall poor prognosis with cardiac and renal amyloid discussed with patient overall guarded/critical prognosis --she would want to be full code but does not want to be transferred to tertiary center as she understands her overall prognosis and wants to continue treatment her. She would like me to communicate her prognosis to her son. Discussed with Dr. Bacon
[2019-10-09] MEDS: ATORVASTATIN CA 40 MG TABLET (FP) PO SCH (21:17)
[2019-10-10] MEDS: NOREPINEPHRINE BITARTRATE 8,000 MCG in DEXTROSE 5%-WATER - 492 ML IV SCH ×2 (01:02→22:15)
[2019-10-10] MEDS: HYDROCORTISONE SOD SUCCINATE 100 MG/2 ML VIAL IVPB SCH ×4 (02:01→21:37)
[2019-10-10] MEDS: HEPARIN INFUSION - 25,000 UNITS/500 ML INFUS.BAG IVPB SCH (05:31)
[2019-10-10] MEDS: NYSTATIN 500,000 UNITS TABLET PO SCH ×3 (06:47→22:58)
[2019-10-10] MEDS: LEVOTHYROXINE NA 75 MCG TABLET (FP) PO SCH (06:47)
[2019-10-10 07:10] LABS: BASO % 0.4 % (0-2.0); HEMATOCRIT 22.4 % (32.4-45.2); HEMOGLOBIN 7.4 GM/dL (10.7-15.3); LYMPH % 4.1 % (8-40); MCH 31.2 pg (25.7-33.7); MCHC 33.3 g/dl (32.0-36.0); MEAN CELL VOLUME 93.9 fl (80-96); MEAN PLT VOLUME 9.1 fl (7.5-11.1); MONO % 3.9 % (3.8-10.2); NEUT % 91.6 % (42.8-82.8); PLATELET COUNT 186 K/MM3 (134-434); RBC 2.38 M/mm3 (3.60-5.2); RDW 19.3 % (11.6-15.6); WHITE BLOOD COUNT 5.6 K/mm3 (4.0-10.0)
[2019-10-10 07:39] LABS: ALBUMIN 1.4 g/dl (3.4-5.0); BILIRUBIN,TOTAL 0.2 mg/dL (0.2-1); BLOOD UREA NITROGEN 68.3 mg/dL (7-18); CALCIUM 8.1 mg/dL (8.5-10.1); CREATININE 2.7 mg/dL (0.55-1.3); POTASSIUM 5.5 mmol/L (3.5-5.1); TOT PROT 6.9 g/dl (6.4-8.2); URIC ACID 3.3 mg/dL (2.6-7.2)
[2019-10-10] MEDS: ASPIRIN COATED 81 MG TABLET.EC PO SCH (10:11)
[2019-10-10] MEDS: ESCITALOPRAM OXALATE 10 MG TABLET (FP) PO SCH (10:11)
[2019-10-10] MEDS: FUROSEMIDE 40 MG/4 ML INJECTABLE VIAL IVPUSH SCH (10:11)
[2019-10-10] MEDS: MIDODRINE HCL 5 MG TABLET PO SCH ×3 (10:11→18:32)
[2019-10-10] MEDS: AMIODARONE IN DEXTROSE,ISO-OSM 360 MG/200 ML BAG IVPB SCH (10:11)
[2019-10-10] MEDS: ALLOPURINOL 300 MG TABLET (FP) PO SCH (10:12)
[2019-10-10] MEDS: valACYclovir HCL 500 MG TABLET (FP) PO SCH (10:12)
[2019-10-10] MEDS: PANTOPRAZOLE 40 MG TABLET (FP) PO SCH (10:12)
--- NOTE | 2019-10-10 10:36 | PN ---
Progress Note, Physician History of Present Illness: 74 year old black female with PMH HTN, HLD, CAD s/p coronary artery stenting, GERD, multiple myeloma (chemo; radiation directed at abdomen), ? "mild" systolic CHF, on Lasix, rectal hemorrhoids, now presented to ED for diarrhea x2 days associated with generalized weakness, ROGERS. Pt reported she has had loose, watery diarrhea x2 days, and prior to that he had rectal bleeding x2 days (on toilet paper and mixed in stool) that self resolved. She reported she only noticed the bleeding because it was on the toilet paper, as she did not have abdominal or rectal pain. Pt reported generalized weakness and ROGERS, which prompted her to come to the ED. Pt denied nausea, vomiting, fever, abdominal pain, chest pain, increased LE swelling. She reported she believed her lower extremity swelling is actually improving. She also reported noticing a new "rash " to her right hip since last week. - Current Medication List Current Medications: Active Medications Acetaminophen (Tylenol -) 650 mg PO Q6H PRN PRN Reason: FEVER Last Admin: 10/07/19 21:49 Dose: 650 mg Allopurinol (Zyloprim -) 300 mg PO DAILY [facility] Last Admin: 10/10/19 10:12 Dose: 300 mg Aspirin (Ecotrin -) 81 mg PO DAILY [facility] Last Admin: 10/10/19 10:11 Dose: 81 mg Atorvastatin Calcium (Lipitor -) 40 mg PO HS [facility] Last Admin: 10/09/19 21:17 Dose: 40 mg Escitalopram Oxalate (Lexapro -) 10 mg PO DAILY [facility] Last Admin: 10/10/19 10:11 Dose: 10 mg Furosemide (Lasix Injection -) 40 mg IVPUSH DAILY [facility] Last Admin: 10/10/19 10:11 Dose: 40 mg Heparin Sodium (Porcine) (Heparin -) 1,000 unit IVPUSH PRN PRN PRN Reason: APTT 40-49 Heparin Sodium (Porcine) (Heparin -) 5,000 unit IVPUSH PRN PRN PRN Reason: APTT < 40 Hydrocortisone Sodium Succinate (Solu-Cortef -) 50 mg IVPB Q6H-IV [facility] Last Admin: 10/10/19 09:10 Dose: 50 mg Norepinephrine Bitartrate 8, (000 mcg/ Dextrose) 500 mls @ 18.75 mls/hr IV TITR [facility]; Protocol Last Titration: 10/10/19 01:02 Dose: 5 mcg/min, 18.75 mls/hr Milrinone Lactate/Dextrose (Milrinone 20mg/100ml Ivpb -) 20,000 mcg in 100 mls @ 4.311 mls/hr IVPB TITR [facility]; Protocol Last Admin: 10/09/19 14:12 Dose: 0.5 mcg/kg/min, 10.777 mls/hr Heparin Sodium/Dextrose (Heparin Infusion -) 25,000 units in 500 mls @ 20 mls/ hr IVPB TITR [facility]; Protocol Last Admin: 10/10/19 05:31 Dose: Not Given Amiodarone HCl/Dextrose (Nexterone 360 Mg/200 Ml Bag) 360 mg in 200 mls @ 16.667 mls/hr IVPB [facility]IR [facility]; Protocol Last Admin: 10/10/19 10:11 Dose: 16.667 mls/hr Ipratropium [place] (Atrovent 0.02% Nebulizer -) 1 amp NEB RQID PRN PRN Reason: Dyspnea Last Admin: 10/06/19 23:11 Dose: 1 amp Ipratropium [place] (Atrovent 0.02% Nebulizer -) 1 amp NEB Q1H PRN PRN Reason: WHEEZING Last Admin: 10/07/19 01:32 Dose: 1 amp Levothyroxine Sodium (Synthroid -) 75 mcg PO DAILY@0700 [facility] Last Admin: 10/10/19 06:47 Dose: 75 mcg Midodrine (Proamatine -) 10 mg PO TID-MID [facility] Last Admin: 10/10/19 10:11 Dose: 10 mg Nystatin (Nystatin) 500,000 unit PO TID [facility] Stop: 10/12/19 22:00 Last Admin: 10/10/19 06:47 Dose: 500,000 unit Pantoprazole Sodium (Protonix -) 40 mg PO DAILY [facility] Last Admin: 10/10/19 10:12 Dose: 40 mg Valacyclovir HCl (Valtrex -) 500 mg PO DAILY [facility] Last Admin: 10/10/19 10:12 Dose: 500 mg - Objective Vital Signs: Vital Signs Temperature 98.6 F 10/10/19 04:00 Pulse Rate 87 10/10/19 08:32 Respiratory Rate 25 H 10/10/19 06:00 Blood Pressure 96/57 L 10/10/19 06:00 O2 Sat by Pulse Oximetry (%) 96 10/10/19 08:32 Eyes: Yes: WNL, Conjunctiva Clear, EOM Intact HENT: Yes: WNL, Atraumatic, Normocephalic Neck: Yes: WNL, Supple, Trachea Midline Cardiovascular: Yes: WNL, Regular Rate and Rhythm Respiratory: Yes: WNL, Regular, CTA Bilaterally Gastrointestinal: Yes: WNL, Normal Bowel Sounds Genitourinary: Yes: WNL Musculoskeletal: Yes: WNL Extremities: Yes: WNL Edema: Yes Edema: LUE: 2+, RUE: 2+, LLE: 2+, RLE: 2+ Integumentary: Yes: WNL Neurological: Yes: WNL, Alert, Oriented ...Motor Strength: WNL Psychiatric: Yes: WNL Labs: CBC, BMP 10/10/19 06:00 10/10/19 06:00 INR, PTT INR 0.99 (0.83-1.09) 10/07/19 02:55 Assessment/Plan 1. Acute on chronic LV systolic failure with cardiogenic shock 2. PAF currently in sinus rhythm 3. Elevated troponin due to NSTEMI, underlying CAD post PCI/stent 4. Multiple Myeloma 5. Amyloid 6. Hyperlipidemia 7. CKD 8. Anemia due to chronic disease PLAN: 1. Continue current ICU management per critical care team 2. Taper Levophed as tolerated and Milrinone keep MAP>55 3. Amiodarone drip can be tapered and eventually switched to PO 4. Heparin drip to be continued 5. Hematology input to follow 6. Monitor renal function and electrolytes 7. Transfuse as needed 8. Trend troponin currently appears to have peaked at 26 and now 9.65 9. Review of chart reveals discussion regarding possible transfer to tertiary care center for treatment of refractory severe systolic heart failure with potential IABP. Currently patient refuses to be transferred. Continue supportive care cc time 38 min
[2019-10-10 10:40] LABS: ANISOCYTOSIS 1+; MACROCYTOSIS 0; PLATELET ESTIMATE NORMAL; ROULEAU 1+
--- NOTE | 2019-10-10 11:56 | PN ---
Physical Exam: SUBJECTIVE: Patient seen and examined on morning ICU rounds. No acute complaints. No CP / SOB / N / V / F / C. Remains on Levo 7, Amio 0.5, Heparin 900, Milrinone 0.5. Received zofran for nausea overnight, without nausea this AM. Recently changed code status to DNR. OBJECTIVE: Vital Signs Period Temp Pulse Resp BP Sys/Moss Pulse Ox Last 24 Hr 98 F-98.6 F 78-93 16-25 83-102/47-59 96-100 GENERAL: AOx3, no acute distress. HEAD: Normal with no signs of trauma, EOMI, dry MM, trachea midline. LUNGS: On high flow (40L, 59%) decreased sounds B/L, clear with no wheezes, no crackles, no accessory muscle use. HEART: RRR, S1, S2 without murmur, rub or gallop. ABDOMEN: Soft, non-tender, non-distended, no guarding. EXTREMITIES: +edema of bilateral lower extremities primarily around the ankles - improving, 2+ pulses, warm, well-perfused. NEUROLOGICAL: Normal speech, gait not observed. SKIN: Warm, dry, no rashes observed. Laboratory Results - last 24 hr 10/10/19 10/10/19 10/10/19 06:00 06:00 06:00 WBC 5.6 RBC 2.38 L Hgb 7.4 L Hct 22.4 L MCV 93.9 MCH 31.2 MCHC 33.3 RDW 19.3 H Plt Count 186 MPV 9.1 Absolute Neuts (auto) 5.1 Neutrophils % 91.6 H Neutrophils % (Manual) 96.8 H Band Neutrophils % 0.0 Lymphocytes % 4.1 L D Lymphocytes % (Manual) 1.1 L D Monocytes % 3.9 Monocytes % (Manual) 2 L D Eosinophils % 0.0 Eosinophils % (Manual) 0.0 Basophils % 0.4 Basophils % (Manual) 0.0 Myelocytes % (Man) 0 Promyelocytes % (Man) 0 Blast Cells % (Manual) 0 Nucleated RBC % 0 Metamyelocytes 0 Hypochromia 0 Platelet Estimate Normal Polychromasia 1+ Poikilocytosis 0 Anisocytosis 1+ Microcytosis 1+ Macrocytosis 0 Rouleaux 1+ PTT (Actin FS) 46.2 H Sodium 126 L Potassium 5.5 H Chloride 89 L Carbon Dioxide 23 Anion Gap 14 BUN 68.3 H Creatinine 2.7 H Est GFR (CKD-EPI)AfAm 19.21 Est GFR (CKD-EPI)NonAf 16.57 Random Glucose 117 H Uric Acid 3.3 Calcium 8.1 L Total Bilirubin 0.2 AST 131 H ALT 181 H Alkaline Phosphatase 62 Total Protein 6.9 Albumin 1.4 L Active Medications Generic Name Dose Route Start Last Admin Trade Name Freq PRN Reason Stop Dose Admin Acetaminophen 650 mg 09/20/19 22:25 10/07/19 21:49 Tylenol - PO 650 mg Q6H PRN Administration FEVER Allopurinol 300 mg 09/21/19 10:00 10/10/19 10:12 Zyloprim - PO 300 mg DAILY [facility] Administration Aspirin 81 mg 09/25/19 10:00 10/10/19 10:11 Ecotrin - PO 81 mg DAILY [facility] Administration Atorvastatin Calcium 40 mg 09/20/19 22:00 10/09/19 21:17 Lipitor - PO 40 mg HS [facility] Administration Escitalopram Oxalate 10 mg 09/21/19 10:00 10/10/19 10:11 Lexapro - PO 10 mg DAILY [facility] Administration Furosemide 40 mg 09/21/19 10:00 10/10/19 10:11 Lasix Injection - IVPUSH 40 mg DAILY [facility] Administration Heparin Sodium (Porcine) 1,000 unit 10/07/19 04:04 Heparin - IVPUSH PRN PRN APTT 40-49 Heparin Sodium (Porcine) 5,000 unit 10/07/19 04:04 Heparin - IVPUSH PRN PRN APTT < 40 Hydrocortisone Sodium Succinate 50 mg 10/07/19 16:00 10/10/19 09:10 Solu-Cortef - IVPB 50 mg Q6H-IV [facility] Administration Norepinephrine Bitartrate 8, 500 mls @ 18.75 mls/hr 09/27/19 22:00 10/10/19 01:02 000 mcg/ Dextrose IV 5 mcg/min TITR [facility] 18.75 mls/hr Titration Protocol 5 MCG/MIN Milrinone Lactate/Dextrose 20,000 mcg in 100 mls @ 4.311 mls/hr 10/05/19 11: 00 10/09/19 14:12 Milrinone 20mg/100ml Ivpb - IVPB 0.5 mcg/kg/min TITR [facility] 10.777 mls/hr Administration Protocol 0.2 MCG/KG/MIN Heparin Sodium/Dextrose 25,000 units in 500 mls @ 20 mls/hr 10/07/19 04:15 05:31 Heparin Infusion - IVPB Not Given TITR [facility] Protocol 1,000 UNITS/HR Amiodarone HCl/Dextrose 360 mg in 200 mls @ 16.667 mls/hr 10/07/19 09:15 07/21 10:11 Nexterone 360 Mg/200 Ml Bag IVPB 16.667 mls/hr ASDIR [facility] Administration Protocol 0.5 MG/MIN Ipratropium [place] 1 amp 10/06/19 22:27 10/06/19 23:11 Atrovent 0.02% Nebulizer - NEB 1 amp RQID PRN Administration Dyspnea Ipratropium [place] 1 amp 10/07/19 01:17 10/07/19 01:32 Atrovent 0.02% Nebulizer - NEB 1 amp Q1H PRN Administration WHEEZING Levothyroxine Sodium 75 mcg 09/21/19 07:00 10/10/19 06:47 Synthroid - PO 75 mcg DAILY@0700 [facility] Administration Midodrine 10 mg 10/06/19 18:00 10/10/19 10:11 Proamatine - PO 10 mg TID-MID [facility] Administration Nystatin 500,000 unit 10/07/19 22:00 10/10/19 06:47 Nystatin PO 10/12/19 22:00 500,000 unit TID [facility] Administration Pantoprazole Sodium 40 mg 09/21/19 10:00 10/10/19 10:12 Protonix - PO 40 mg DAILY [facility] Administration Valacyclovir HCl 500 mg 09/21/19 10:00 10/10/19 10:12 Valtrex - PO 500 mg DAILY [facility] Administration ASSESSMENT/PLAN: 73 y/o/f with PMHx of multiple myeloma (currently on treatment), amyloidosis, chronic anemia, hypertension, hyperlipidemia, hypothyroidism, GERD, admitted for UGIB, renal failure, volume overload, transferred to the ICU for hypotension refractory to IVF boluses. Suffered GA on 10/06. 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 #Neuro - AAOx3 - No active neurologic issues #Cardiovascular - Cardiogenic shock: Milrinone increased to 0.5, Midodrine 10mg PO. MAP target 60-65. - Cardio recs: Continue Heparin drip, attempt to wean off Levophed, will see if patient will benefit from transfer to tertiary care center - Continue home meds Aspirin 81mg, Atorvastatin 40mg - Started on Hydrocortisone 50mg Q6hr for BP support - Trop peaked at 26.4, most recent 9.85 #Pulm - CXR: unchanged from prior - Duonebs as needed - Continue Lasix 40mg IV #Renal - BUN/Cr: 39.8/0.8 -> 37.1/0.6 -> 37.1/0.7 -> 42.8/1.5 -> 50.4/1.8 -> 68.3/2.7 - Renal function worsening, likely from hypotension - Nephro recs: check uric acid and if less than 7 would reduce allopurinol which can also affect kidney function - Candidate for cvvhdf if renal function continues to worsen #Heme/Onc - Multiple Myeloma: Continue Lokelma, Allopurinol - Hg 8.2 -> 7.4 -> 6.9 -> 8.1 -> 7.5 -> 7.4 - Transfused 1unit PRBC 10/07. Plan for transfusion today 10/10. Target Hgb 8. #ID - ID recs: Stop abx, was previously on Meropenem #Endo - Hx of hypothyroidism - Continue levothyroxine #FEN - Na controlled diet #Prophylaxis - SCDs - Heparin drip @ 900 units/HR #Dispo - DNR only, not DNI - ICU monitoring, possible transfer to tertiary center pending Dr. Burgess's return on Thursday Visit type - Emergency Visit Emergency Visit: Yes ED Registration Date: 09/20/19 Care time: The patient presented to the Emergency Department on the above date and was hospitalized for further evaluation of their emergent condition. - New Patient This patient is new to me today: No - Critical Care Critical Care patient: Yes Total Critical Care Time (in minutes): 36 Critical Care Statement: The care of this patient involved high complexity decision making to prevent further life threatening deterioration of the patient 's condition and/or to evaluate & treat vital organ system(s) failure or risk of failure. ATTENDING PHYSICIAN STATEMENT I saw and evaluated the patient. I reviewed the resident's note and discussed the case with the resident. I agree with the resident's findings and plan as documented. SUBJECTIVE: OBJECTIVE: ASSESSMENT AND PLAN:
--- NOTE | 2019-10-10 12:26 | PN ---
Teaching Attending Note Name of Resident: Fernando Moeller ATTENDING PHYSICIAN STATEMENT I saw and evaluated the patient. I reviewed the resident's note and discussed the case with the resident. I agree with the resident's findings and plan as documented. SUBJECTIVE: Pt seen and examined in the ICU. Remains on HFOT, levophed, amiodarone and milrinone gtts. OBJECTIVE: Vital Signs Period Temp Pulse Resp BP Sys/Moss Pulse Ox Last 24 Hr 98 F-98.6 F 78-93 16-25 83-100/47-59 96-100 Intake & Output 10/07/19 10/08/19 10/09/19 10/10/19 23:59 23:59 23:59 23:59 Intake Total 1959.3 2208 1925 961.6 Output Total 1350 200 10 Balance 1959.3 858 1725 951.6 Weight 72.393 kg 77.882 kg 76.249 kg 78.5 kg Gen: tachypneic on HFOT Heart: RRR Lung: scattered rhonchi Abd: soft, nontender Ext: no edema CBC, BMP 10/10/19 06:00 10/10/19 06:00 Active Medications Acetaminophen (Tylenol -) 650 mg PO Q6H PRN PRN Reason: FEVER Last Admin: 10/07/19 21:49 Dose: 650 mg Allopurinol (Zyloprim -) 300 mg PO DAILY [facility] Last Admin: 10/10/19 10:12 Dose: 300 mg Aspirin (Ecotrin -) 81 mg PO DAILY [facility] Last Admin: 10/10/19 10:11 Dose: 81 mg Atorvastatin Calcium (Lipitor -) 40 mg PO HS [facility] Last Admin: 10/09/19 21:17 Dose: 40 mg Escitalopram Oxalate (Lexapro -) 10 mg PO DAILY [facility] Last Admin: 10/10/19 10:11 Dose: 10 mg Furosemide (Lasix Injection -) 40 mg IVPUSH DAILY [facility] Last Admin: 10/10/19 10:11 Dose: 40 mg Heparin Sodium (Porcine) (Heparin -) 1,000 unit IVPUSH PRN PRN PRN Reason: APTT 40-49 Heparin Sodium (Porcine) (Heparin -) 5,000 unit IVPUSH PRN PRN PRN Reason: APTT < 40 Hydrocortisone Sodium Succinate (Solu-Cortef -) 50 mg IVPB Q6H-IV [facility] Last Admin: 10/10/19 09:10 Dose: 50 mg Norepinephrine Bitartrate 8, (000 mcg/ Dextrose) 500 mls @ 18.75 mls/hr IV TITR [facility]; Protocol Last Titration: 10/10/19 01:02 Dose: 5 mcg/min, 18.75 mls/hr Milrinone Lactate/Dextrose (Milrinone 20mg/100ml Ivpb -) 20,000 mcg in 100 mls @ 4.311 mls/hr IVPB TITR [facility]; Protocol Last Admin: 10/09/19 14:12 Dose: 0.5 mcg/kg/min, 10.777 mls/hr Heparin Sodium/Dextrose (Heparin Infusion -) 25,000 units in 500 mls @ 20 mls/ hr IVPB TITR [facility]; Protocol Last Admin: 10/10/19 05:31 Dose: Not Given Amiodarone HCl/Dextrose (Nexterone 360 Mg/200 Ml Bag) 360 mg in 200 mls @ 16.667 mls/hr IVPB ASDIR [facility]; Protocol Last Admin: 10/10/19 10:11 Dose: 16.667 mls/hr Ipratropium [place] (Atrovent 0.02% Nebulizer -) 1 amp NEB RQID PRN PRN Reason: Dyspnea Last Admin: 10/06/19 23:11 Dose: 1 amp Ipratropium [place] (Atrovent 0.02% Nebulizer -) 1 amp NEB Q1H PRN PRN Reason: WHEEZING Last Admin: 10/07/19 01:32 Dose: 1 amp Levothyroxine Sodium (Synthroid -) 75 mcg PO DAILY@0700 [facility] Last Admin: 10/10/19 06:47 Dose: 75 mcg Midodrine (Proamatine -) 10 mg PO TID-MID [facility] Last Admin: 10/10/19 10:11 Dose: 10 mg Nystatin (Nystatin) 500,000 unit PO TID [facility] Stop: 10/12/19 22:00 Last Admin: 10/10/19 06:47 Dose: 500,000 unit Pantoprazole Sodium (Protonix -) 40 mg PO DAILY [facility] Last Admin: 10/10/19 10:12 Dose: 40 mg Valacyclovir HCl (Valtrex -) 500 mg PO DAILY [facility] Last Admin: 12/09/19 10:12 Dose: 500 mg ASSESSMENT AND PLAN: Acute on Chronic Systolic Heart Failure Cardiogenic Shock Acute on Chronic Renal Failure CAD Acute NSTEMI Paroxysmal Atrial Fibrillation Pneumonia Asthma Multiple Myeloma HTN Hyperlipidemia Hypothyroidism Anemia - continue milrinone gtt - taper levophed gtt - monitor urine output, creatinine - daily weights - amiodarone - on anticoagulation - completed antibiotics - O2 to keep SpO2 >90% - inhaled bronchodilators as needed - DVT prophylaxis - continue ICU monitoring critical care time spent in reviewing chart, evaluating patient and formulating plan 35 min
--- NOTE | 2019-10-10 13:49 | PN ---
Progress Note, Physician History of Present Illness: Pt seen and examined at bedside. She remains in the ICU. She has shortness of breath. - Current Medication List Current Medications: Active Medications Acetaminophen (Tylenol -) 650 mg PO Q6H PRN PRN Reason: FEVER Last Admin: 10/07/19 21:49 Dose: 650 mg Allopurinol (Zyloprim -) 300 mg PO DAILY [facility] Last Admin: 10/10/19 10:12 Dose: 300 mg Aspirin (Ecotrin -) 81 mg PO DAILY [facility] Last Admin: 10/10/19 10:11 Dose: 81 mg Atorvastatin Calcium (Lipitor -) 40 mg PO HS [facility] Last Admin: 10/09/19 21:17 Dose: 40 mg Escitalopram Oxalate (Lexapro -) 10 mg PO DAILY [facility] Last Admin: 10/10/19 10:11 Dose: 10 mg Furosemide (Lasix Injection -) 40 mg IVPUSH DAILY [facility] Last Admin: 10/10/19 10:11 Dose: 40 mg Heparin Sodium (Porcine) (Heparin -) 1,000 unit IVPUSH PRN PRN PRN Reason: APTT 40-49 Heparin Sodium (Porcine) (Heparin -) 5,000 unit IVPUSH PRN PRN PRN Reason: APTT < 40 Hydrocortisone Sodium Succinate (Solu-Cortef -) 50 mg IVPB Q6H-IV [facility] Last Admin: 10/10/19 09:10 Dose: 50 mg Norepinephrine Bitartrate 8, (000 mcg/ Dextrose) 500 mls @ 18.75 mls/hr IV TITR [facility]; Protocol Last Titration: 10/10/19 01:02 Dose: 5 mcg/min, 18.75 mls/hr Milrinone Lactate/Dextrose (Milrinone 20mg/100ml Ivpb -) 20,000 mcg in 100 mls @ 4.311 mls/hr IVPB TITR [facility]; Protocol Last Admin: 10/09/19 14:12 Dose: 0.5 mcg/kg/min, 10.777 mls/hr Heparin Sodium/Dextrose (Heparin Infusion -) 25,000 units in 500 mls @ 20 mls/ hr IVPB TITR [facility]; Protocol Last Admin: 10/10/19 05:31 Dose: Not Given Amiodarone HCl/Dextrose (Nexterone 360 Mg/200 Ml Bag) 360 mg in 200 mls @ 16.667 mls/hr IVPB ASDIR [facility]; Protocol Last Admin: 10/10/19 10:11 Dose: 16.667 mls/hr Ipratropium [place] (Atrovent 0.02% Nebulizer -) 1 amp NEB RQID PRN PRN Reason: Dyspnea Last Admin: 10/06/19 23:11 Dose: 1 amp Ipratropium [place] (Atrovent 0.02% Nebulizer -) 1 amp NEB Q1H PRN PRN Reason: WHEEZING Last Admin: 10/07/19 01:32 Dose: 1 amp Levothyroxine Sodium (Synthroid -) 75 mcg PO DAILY@0700 [facility] Last Admin: 10/10/19 06:47 Dose: 75 mcg Midodrine (Proamatine -) 10 mg PO TID-MID [facility] Last Admin: 10/10/19 10:11 Dose: 10 mg Nystatin (Nystatin) 500,000 unit PO TID [facility] Stop: 10/12/19 22:00 Last Admin: 10/10/19 06:47 Dose: 500,000 unit Pantoprazole Sodium (Protonix -) 40 mg PO DAILY [facility] Last Admin: 10/10/19 10:12 Dose: 40 mg Valacyclovir HCl (Valtrex -) 500 mg PO DAILY [facility] Last Admin: 10/10/19 10:12 Dose: 500 mg - Objective Vital Signs: Vital Signs Temperature 98.6 F 10/10/19 04:00 Pulse Rate 88 10/10/19 10:00 Respiratory Rate 20 10/10/19 10:00 Blood Pressure 103/55 L 10/10/19 10:00 O2 Sat by Pulse Oximetry (%) 96 10/10/19 08:32 Constitutional: Yes: Calm Eyes: Yes: Conjunctiva Clear HENT: Yes: Atraumatic Cardiovascular: Yes: S1, S2 Respiratory: Yes: On Nasal O2 Gastrointestinal: Yes: Soft Genitourinary: Yes: WNL Musculoskeletal: Yes: WNL Edema: Yes Neurological: Yes: Oriented Psychiatric: Yes: Oriented Labs: CBC, BMP 10/10/19 06:00 10/10/19 06:00 INR, PTT INR 0.99 (0.83-1.09) 10/07/19 02:55 Problem List - Problems (1) Fluid overload Code(s): E87.70 - FLUID OVERLOAD, UNSPECIFIED (2) CKD (chronic kidney disease) Code(s): N18.9 - CHRONIC KIDNEY DISEASE, UNSPECIFIED Assessment/Plan Current Medications Generic Name Dose Route Start Last Admin Trade Name Freq PRN Reason Stop Dose Admin Acetaminophen 650 mg 09/20/19 22:25 10/07/19 21:49 Tylenol - PO 650 mg Q6H PRN Administration FEVER Allopurinol 300 mg 09/21/19 10:00 10/10/19 10:12 Zyloprim - PO 300 mg DAILY [facility] Administration Aspirin 81 mg 09/25/19 10:00 10/10/19 10:11 Ecotrin - PO 81 mg DAILY [facility] Administration Atorvastatin Calcium 40 mg 09/20/19 22:00 10/09/19 21:17 Lipitor - PO 40 mg HS [facility] Administration Escitalopram Oxalate 10 mg 09/21/19 10:00 10/10/19 10:11 Lexapro - PO 10 mg DAILY [facility] Administration Furosemide 40 mg 09/21/19 10:00 10/10/19 10:11 Lasix Injection - IVPUSH 40 mg DAILY [facility] Administration Heparin Sodium (Porcine) 1,000 unit 10/07/19 04:04 Heparin - IVPUSH PRN PRN APTT 40-49 Heparin Sodium (Porcine) 5,000 unit 10/07/19 04:04 Heparin - IVPUSH PRN PRN APTT < 40 Hydrocortisone Sodium Succinate 50 mg 10/07/19 16:00 10/10/19 09:10 Solu-Cortef - IVPB 50 mg Q6H-IV [facility] Administration Norepinephrine Bitartrate 8, 500 mls @ 18.75 mls/hr 09/27/19 22:00 10/10/19 01:02 000 mcg/ Dextrose IV 5 mcg/min TITR [facility] 18.75 mls/hr Titration Protocol 5 MCG/MIN Milrinone Lactate/Dextrose 20,000 mcg in 100 mls @ 4.311 mls/hr 10/05/19 11: 00 10/09/19 14:12 Milrinone 20mg/100ml Ivpb - IVPB 0.5 mcg/kg/min TITR [facility] 10.777 mls/hr Administration Protocol 0.2 MCG/KG/MIN Heparin Sodium/Dextrose 25,000 units in 500 mls @ 20 mls/hr 10/07/19 04:15 05:31 Heparin Infusion - IVPB Not Given TITR [facility] Protocol 1,000 UNITS/HR Amiodarone HCl/Dextrose 360 mg in 200 mls @ 16.667 mls/hr 10/07/19 09:15 07/21 10:11 Nexterone 360 Mg/200 Ml Bag IVPB 16.667 mls/hr ASDIR [facility] Administration Protocol 0.5 MG/MIN Ipratropium [place] 1 amp 10/06/19 22:27 10/06/19 23:11 Atrovent 0.02% Nebulizer - NEB 1 amp RQID PRN Administration Dyspnea Ipratropium [place] 1 amp 10/07/19 01:17 10/07/19 01:32 Atrovent 0.02% Nebulizer - NEB 1 amp Q1H PRN Administration WHEEZING Levothyroxine Sodium 75 mcg 09/21/19 07:00 10/10/19 06:47 Synthroid - PO 75 mcg DAILY@0700 [facility] Administration Midodrine 10 mg 10/06/19 18:00 10/10/19 10:11 Proamatine - PO 10 mg TID-MID [facility] Administration Nystatin 500,000 unit 10/07/19 22:00 10/10/19 06:47 Nystatin PO 10/12/19 22:00 500,000 unit TID [facility] Administration Pantoprazole Sodium 40 mg 09/21/19 10:00 10/10/19 10:12 Protonix - PO 40 mg DAILY [facility] Administration Valacyclovir HCl 500 mg 09/21/19 10:00 10/10/19 10:12 Valtrex - PO 500 mg DAILY [facility] Administration Impression 1. proteinuria 2. multiple myeloma 3. amyloid 4. dizziness 5. hypotension 6. HLD 7. hypothyroidism 8. anemia 9. CKD 10. fluid overload 11. hypotension Plan - cont with lasix - can give lokelma for hyperkalemia - monitor lytes - follow up cxr - hold losartan (was on it to help with proteinuria) - monitor bp - decrease allopurinol dose
--- NOTE | 2019-10-10 15:11 | PN ---
Progress Note, Physician History of Present Illness: not feeling well now on high flow o2 Remains on HFOT, levophed, amiodarone and milrinone gtts. - Current Medication List Current Medications: Active Medications Acetaminophen (Tylenol -) 650 mg PO Q6H PRN PRN Reason: FEVER Last Admin: 10/07/19 21:49 Dose: 650 mg Allopurinol (Zyloprim -) 100 mg PO DAILY [facility] Aspirin (Ecotrin -) 81 mg PO DAILY [facility] Last Admin: 10/10/19 10:11 Dose: 81 mg Atorvastatin Calcium (Lipitor -) 40 mg PO HS [facility] Last Admin: 10/09/19 21:17 Dose: 40 mg Escitalopram Oxalate (Lexapro -) 10 mg PO DAILY [facility] Last Admin: 10/10/19 10:11 Dose: 10 mg Furosemide (Lasix Injection -) 40 mg IVPUSH DAILY [facility] Last Admin: 10/10/19 10:11 Dose: 40 mg Heparin Sodium (Porcine) (Heparin -) 1,000 unit IVPUSH PRN PRN PRN Reason: APTT 40-49 Heparin Sodium (Porcine) (Heparin -) 5,000 unit IVPUSH PRN PRN PRN Reason: APTT < 40 Hydrocortisone Sodium Succinate (Solu-Cortef -) 50 mg IVPB Q6H-IV [facility] Last Admin: 10/10/19 09:10 Dose: 50 mg Norepinephrine Bitartrate 8, (000 mcg/ Dextrose) 500 mls @ 18.75 mls/hr IV TITR [facility]; Protocol Last Titration: 10/10/19 01:02 Dose: 5 mcg/min, 18.75 mls/hr Milrinone Lactate/Dextrose (Milrinone 20mg/100ml Ivpb -) 20,000 mcg in 100 mls @ 4.311 mls/hr IVPB TITR [facility]; Protocol Last Admin: 10/09/19 14:12 Dose: 0.5 mcg/kg/min, 10.777 mls/hr Heparin Sodium/Dextrose (Heparin Infusion -) 25,000 units in 500 mls @ 20 mls/ hr IVPB TITR [facility]; Protocol Last Admin: 10/10/19 05:31 Dose: Not Given Amiodarone HCl/Dextrose (Nexterone 360 Mg/200 Ml Bag) 360 mg in 200 mls @ 16.667 mls/hr IVPB ASDIR [facility]; Protocol Last Admin: 10/10/19 10:11 Dose: 16.667 mls/hr Ipratropium [place] (Atrovent 0.02% Nebulizer -) 1 amp NEB RQID PRN PRN Reason: Dyspnea Last Admin: 10/06/19 23:11 Dose: 1 amp Ipratropium [place] (Atrovent 0.02% Nebulizer -) 1 amp NEB Q1H PRN PRN Reason: WHEEZING Last Admin: 10/07/19 01:32 Dose: 1 amp Levothyroxine Sodium (Synthroid -) 75 mcg PO DAILY@0700 [facility] Last Admin: 10/10/19 06:47 Dose: 75 mcg Midodrine (Proamatine -) 10 mg PO TID-MID [facility] Last Admin: 10/10/19 10:11 Dose: 10 mg Nystatin (Nystatin) 500,000 unit PO TID [facility] Stop: 10/12/19 22:00 Last Admin: 10/10/19 06:47 Dose: 500,000 unit Pantoprazole Sodium (Protonix -) 40 mg PO DAILY [facility] Last Admin: 10/10/19 10:12 Dose: 40 mg Valacyclovir HCl (Valtrex -) 500 mg PO DAILY [facility] Last Admin: 10/10/19 10:12 Dose: 500 mg - Objective Vital Signs: Vital Signs Temperature 98.6 F 10/10/19 04:00 Pulse Rate 88 10/10/19 10:00 Respiratory Rate 20 10/10/19 10:00 Blood Pressure 103/55 L 10/10/19 10:00 O2 Sat by Pulse Oximetry (%) 96 10/10/19 08:32 Constitutional: Yes: Calm, Mild Distress Cardiovascular: Yes: S1, S2 Respiratory: Yes: Poor Air Entry, Other (on high glow o2) Gastrointestinal: Yes: Normal Bowel Sounds, Soft Musculoskeletal: Yes: WNL Extremities: Yes: Other Edema: LLE: 2+, RLE: 2+ Neurological: Yes: Alert, Oriented Psychiatric: Yes: Alert, Oriented Labs: CBC, BMP 10/10/19 06:00 10/10/19 06:00 INR, PTT INR 0.99 (0.83-1.09) 10/07/19 02:55 - ....Imaging Chest X-ray: Report Reviewed, Image Reviewed Assessment/Plan Problem List - Problems (1) Anasarca Code(s): R60.1 - GENERALIZED EDEMA (2) Fluid overload Code(s): E87.70 - FLUID OVERLOAD, UNSPECIFIED (3) Hypoxia Code(s): R09.02 - HYPOXEMIA (4) Weakness Code(s): R53.1 - WEAKNESS (5) ASHD (arteriosclerotic heart disease) Code(s): I25.10 - ATHSCL HEART DISEASE OF [place] CORONARY ARTERY W/O ANG PCTRS (6) Acute exacerbation of CHF (congestive heart failure) Code(s): I50.9 - HEART FAILURE, UNSPECIFIED (7) Acute on chronic systolic CHF (congestive heart failure) Code(s): I50.23 - ACUTE ON CHRONIC SYSTOLIC (CONGESTIVE) HEART FAILURE (8) Adult onset hypothyroidism Code(s): E03.8 - OTHER SPECIFIED HYPOTHYROIDISM (9) Anemia Code(s): D64.9 - ANEMIA, UNSPECIFIED (10) CKD (chronic kidney disease) Code(s): N18.9 - CHRONIC KIDNEY DISEASE, UNSPECIFIED (11) Elevated troponin Code(s): R74.8 - ABNORMAL LEVELS OF OTHER SERUM ENZYMES (12) HLD (hyperlipidemia) Code(s): E78.5 - HYPERLIPIDEMIA, UNSPECIFIED Qualifiers: Hyperlipidemia type: unspecified Qualified Code(s): E78.5 - Hyperlipidemia , unspecified (13) HTN (hypertension) Code(s): I10 - ESSENTIAL (PRIMARY) HYPERTENSION Qualifiers: Hypertension type: unspecified Qualified Code(s): I10 - Essential (primary ) hypertension (14) History of heart artery stent Code(s): Z95.5 - PRESENCE OF CORONARY ANGIOPLASTY IMPLANT AND GRAFT (15) Multiple myeloma Code(s): C90.00 - MULTIPLE MYELOMA NOT HAVING ACHIEVED REMISSION Qualifiers: Multiple myeloma remission status: not in remission Qualified Code(s): C90.00 - Multiple myeloma not having achieved remission uti hypotension Assessment/Plan continue current mgmt pressors rest as per the team supportive monitor closely cc40 min
[2019-10-10] MEDS ORDERED: ONDANSETRON 4 MG/2 ML VIAL IVPUSH ONE (18:11)
[2019-10-10] MEDS: IPRATROPIUM BR 0.02% 0.5 MG/2.5 ML VIAL.NEB. NEB PRN (20:06)
[2019-10-10] MEDS ORDERED: FUROSEMIDE 40 MG/4 ML INJECTABLE VIAL IVPUSH ONE (20:10)
--- NOTE | 2019-10-10 20:19 | PN ---
Progress Note (short form) - Note Progress Note: Patient seen and examiend Shortness of breath improved renal function worsened Last Vital Signs Temp Pulse Resp BP Pulse Ox 98.2 F 80 16 100/54 L 100 10/09/19 18:00 10/09/19 18:00 10/09/19 18:00 10/09/19 18:00 10/09/19 10:00 Cor: RSR, No murmurs, No gallops Lungs: decreased at bases Abd: Soft, Normal bowel sounds, No organomegaly Ext:No significant edema Labs/Meds reviewed A/P Multiple Myeloma Amyloid CHF Anemia Fever LLL atelectasis vs infiltrate UTI On lasix tapering levophed on midodrine/milrinone creatinine improved monitoring cbc/cmp Overall poor prognosis with cardiac and renal amyloid discussed with patient overall guarded/critical prognosis --she would want to be DNR and does not want to be transferred to tertiary center as she understands her overall prognosis and wants to continue treatment here. Discussed with her son Derrick in [place]. dISCUSSED with cardiology/renal teams
[2019-10-10] MEDS: ATORVASTATIN CA 40 MG TABLET (FP) PO SCH (21:37)
--- NOTE | 2019-10-10 22:07 | PN ---
Progress Note, Physician History of Present Illness: No new complaints - Current Medication List Current Medications: Active Medications Acetaminophen (Tylenol -) 650 mg PO Q6H PRN PRN Reason: FEVER Last Admin: 10/07/19 21:49 Dose: 650 mg Allopurinol (Zyloprim -) 100 mg PO DAILY [facility] Aspirin (Ecotrin -) 81 mg PO DAILY [facility] Last Admin: 10/10/19 10:11 Dose: 81 mg Atorvastatin Calcium (Lipitor -) 40 mg PO HS [facility] Last Admin: 10/10/19 21:37 Dose: 40 mg Escitalopram Oxalate (Lexapro -) 10 mg PO DAILY [facility] Last Admin: 10/10/19 10:11 Dose: 10 mg Furosemide (Lasix Injection -) 40 mg IVPUSH DAILY [facility] Last Admin: 10/10/19 10:11 Dose: 40 mg Heparin Sodium (Porcine) (Heparin -) 1,000 unit IVPUSH PRN PRN PRN Reason: APTT 40-49 Heparin Sodium (Porcine) (Heparin -) 5,000 unit IVPUSH PRN PRN PRN Reason: APTT < 40 Hydrocortisone Sodium Succinate (Solu-Cortef -) 50 mg IVPB Q6H-IV [facility] Last Admin: 10/10/19 21:37 Dose: 50 mg Norepinephrine Bitartrate 8, (000 mcg/ Dextrose) 500 mls @ 18.75 mls/hr IV TITR [facility]; Protocol Last Titration: 10/10/19 17:50 Dose: 3 mcg/min, 11.25 mls/hr Heparin Sodium/Dextrose (Heparin Infusion -) 25,000 units in 500 mls @ 20 mls/ hr IVPB TITR [facility]; Protocol Last Titration: 10/10/19 10:44 Dose: 1,000 units/hr, 20 mls/hr Amiodarone HCl/Dextrose (Nexterone 360 Mg/200 Ml Bag) 360 mg in 200 mls @ 16.667 mls/hr IVPB ASDIR [facility]; Protocol Last Admin: 10/10/19 10:11 Dose: 16.667 mls/hr Ipratropium [place] (Atrovent 0.02% Nebulizer -) 1 amp NEB RQID PRN PRN Reason: Dyspnea Last Admin: 10/10/19 20:06 Dose: 1 amp Ipratropium [place] (Atrovent 0.02% Nebulizer -) 1 amp NEB Q1H PRN PRN Reason: WHEEZING Last Admin: 10/07/19 01:32 Dose: 1 amp Levothyroxine Sodium (Synthroid -) 75 mcg PO DAILY@0700 [facility] Last Admin: 10/10/19 06:47 Dose: 75 mcg Midodrine (Proamatine -) 10 mg PO TID-MID [facility] Last Admin: 10/10/19 18:32 Dose: 10 mg Nystatin (Nystatin) 500,000 unit PO TID [facility] Stop: 10/12/19 22:00 Last Admin: 10/10/19 17:42 Dose: Not Given Pantoprazole Sodium (Protonix -) 40 mg PO DAILY [facility] Last Admin: 10/10/19 10:12 Dose: 40 mg Valacyclovir HCl (Valtrex -) 500 mg PO DAILY [facility] Last Admin: 10/10/19 10:12 Dose: 500 mg - Objective Vital Signs: Vital Signs Temperature 97.8 F 10/10/19 20:00 Pulse Rate 85 10/10/19 20:00 Respiratory Rate 28 H 10/10/19 20:00 Blood Pressure 111/80 10/10/19 20:00 O2 Sat by Pulse Oximetry (%) 96 10/10/19 21:00 Cardiovascular: Yes: WNL, Regular Rate and Rhythm Respiratory: Yes: Rales Gastrointestinal: Yes: WNL, Normal Bowel Sounds, Soft Edema: LUE: 1+, RUE: 1+, LLE: 1+, RLE: 1+ Labs: CBC, BMP 10/10/19 06:00 10/10/19 06:00 INR, PTT INR 0.99 (0.83-1.09) 10/07/19 02:55 Problem List - Problems (1) Elevated troponin Assessment/Plan: Troponin increased to 26 however it is now decreasing Cont to monitor Cont IV heparin/amiodarone Code(s): R74.8 - ABNORMAL LEVELS OF OTHER SERUM ENZYMES (2) Acute on chronic systolic CHF (congestive heart failure) Assessment/Plan: Cont IV lasix Monitor electrolytes Levophed to be tapered off as tolerated Spoke to pt about transfer to tertiary center for further management however pt is refusing Pt is DNR Code(s): I50.23 - ACUTE ON CHRONIC SYSTOLIC (CONGESTIVE) HEART FAILURE (3) Multiple myeloma Assessment/Plan: Pt has been receiving chemotx and recently RT As per onco Code(s): C90.00 - MULTIPLE MYELOMA NOT HAVING ACHIEVED REMISSION Qualifiers: Multiple myeloma remission status: not in remission Qualified Code(s): C90.00 - Multiple myeloma not having achieved remission (4) HLD (hyperlipidemia) Assessment/Plan: DC lipitor due to increasing LFT's Code(s): E78.5 - HYPERLIPIDEMIA, UNSPECIFIED Qualifiers: Hyperlipidemia type: unspecified Qualified Code(s): E78.5 - Hyperlipidemia , unspecified (5) Hypothyroidism Assessment/Plan: Cont levothyroxine Check TSH Code(s): E03.9 - HYPOTHYROIDISM, UNSPECIFIED Qualifiers: Hypothyroidism type: acquired Qualified Code(s): E03.9 - Hypothyroidism, unspecified (6) CAD (coronary artery disease) Code(s): I25.10 - ATHSCL HEART DISEASE OF [place] CORONARY ARTERY W/O ANG PCTRS Qualifiers: (7) Depression Assessment/Plan: Cont lexapro Code(s): F32.9 - MAJOR DEPRESSIVE DISORDER, SINGLE EPISODE, UNSPECIFIED (8) History of heart artery stent Code(s): Z95.5 - PRESENCE OF CORONARY ANGIOPLASTY IMPLANT AND GRAFT (9) Diarrhea Code(s): R19.7 - DIARRHE[place], UNSPECIFIED Qualifiers: Diarrhea type: unspecified type Qualified Code(s): R19.7 - Diarrhea, unspecified (10) UTI (urinary tract infection) Code(s): N39.0 - URINARY TRACT INFECTION, SITE NOT SPECIFIED
[2019-10-11] MEDS ORDERED: PT OWN MED DRAWER 7, Y5N ONE ×5 (01:07→12:39)
[2019-10-11] MEDS: AMIODARONE IN DEXTROSE,ISO-OSM 360 MG/200 ML BAG IVPB SCH (01:24)
[2019-10-11 01:46] LABS: HEMATOCRIT 25.1 % (32.4-45.2); HEMOGLOBIN 8.2 GM/dL (10.7-15.3); MCH 31.1 pg (25.7-33.7); MCHC 32.8 g/dl (32.0-36.0); MEAN CELL VOLUME 94.6 fl (80-96); MEAN PLT VOLUME 9.1 fl (7.5-11.1); PLATELET COUNT 174 K/MM3 (134-434); RBC 2.65 M/mm3 (3.60-5.2); RDW 18.4 % (11.6-15.6); WHITE BLOOD COUNT 6.4 K/mm3 (4.0-10.0)
[2019-10-11] MEDS: HYDROCORTISONE SOD SUCCINATE 100 MG/2 ML VIAL IVPB SCH ×4 (03:09→20:50)
[2019-10-11 06:28] LABS: BASO % 0.2 % (0-2.0); HEMATOCRIT 23.4 % (32.4-45.2); HEMOGLOBIN 7.8 GM/dL (10.7-15.3); LYMPH % 2.9 % (8-40); MCH 30.9 pg (25.7-33.7); MCHC 33.4 g/dl (32.0-36.0); MEAN CELL VOLUME 92.6 fl (80-96); MONO % 6.7 % (3.8-10.2); NEUT % 90.2 % (42.8-82.8); PLATELET COUNT 162 K/MM3 (134-434); RBC 2.52 M/mm3 (3.60-5.2); RDW 18.2 % (11.6-15.6); WHITE BLOOD COUNT 5.3 K/mm3 (4.0-10.0)
[2019-10-11 06:49] LABS: ALBUMIN 1.5 g/dl (3.4-5.0); BILIRUBIN,TOTAL 0.3 mg/dL (0.2-1); BLOOD UREA NITROGEN 70.3 mg/dL (7-18); CALCIUM 7.9 mg/dL (8.5-10.1); CREATININE 3.1 mg/dL (0.55-1.3); MAGNESIUM 2.3 mg/dL (1.8-2.4); PHOSPHOROUS 6.8 mg/dL (2.5-4.9); POTASSIUM 5.7 mmol/L (3.5-5.1)
[2019-10-11] MEDS: NYSTATIN 500,000 UNITS TABLET PO SCH ×3 (06:50→21:57)
[2019-10-11] MEDS: LEVOTHYROXINE NA 75 MCG TABLET (FP) PO SCH (06:50)
--- NOTE | 2019-10-11 08:31 | PN ---
Physical Exam: SUBJECTIVE: Patient seen and examined by the [facility]. Had one episode of melena overnight at 12:45AM. Does not endorse any nausea/vomiting, no abdominal pain or SOB. OBJECTIVE: Vital Signs Period Temp Pulse Resp BP Sys/Moss Pulse Ox Last 24 Hr 97.8 F-98.5 F 67-88 18-28 94-111/55-80 94-96 GENERAL: AOx3, no acute distress. HEAD: Normal with no signs of trauma, EOMI, dry MM, trachea midline. LUNGS: On high flow (40L, 60%) decreased sounds B/L, clear with no wheezes, no crackles, no accessory muscle use. HEART: RRR, S1, S2 without murmur, rub or gallop. ABDOMEN: Soft, non-tender, non-distended, no guarding. EXTREMITIES: 2+ edema B/L , 2+ pulses, warm NEUROLOGICAL: Normal speech, gait not observed. SKIN: Warm, dry, no rashes observed. Laboratory Results - last 24 hr 10/07/19 10/10/19 10/10/19 10:00 06:00 13:30 WBC RBC Hgb Hct MCV MCH MCHC RDW Plt Count MPV Absolute Neuts (auto) Neutrophils % Neutrophils % (Manual) 96.8 H Band Neutrophils % 0.0 Lymphocytes % Lymphocytes % (Manual) 1.1 L D Monocytes % Monocytes % (Manual) 2 L D Eosinophils % Eosinophils % (Manual) 0.0 Basophils % Basophils % (Manual) 0.0 Myelocytes % (Man) 0 Promyelocytes % (Man) 0 Blast Cells % (Manual) 0 Nucleated RBC % Metamyelocytes 0 Hypochromia 0 Platelet Estimate Normal Polychromasia 1+ Poikilocytosis 0 Anisocytosis 1+ Microcytosis 1+ Macrocytosis 0 Rouleaux 1+ PTT (Actin FS) Sodium Potassium Chloride Carbon Dioxide Anion Gap BUN Creatinine Est GFR (CKD-EPI)AfAm Est GFR (CKD-EPI)NonAf Random Glucose Calcium Phosphorus Magnesium Total Bilirubin AST ALT Alkaline Phosphatase Total Protein Albumin Blood Type B POSITIVE B POSITIVE Antibody Screen Negative Negative Crossmatch See Detail See Detail 10/10/19 10/11/19 10/11/19 17:00 01:00 05:30 WBC 6.4 RBC 2.65 L Hgb 8.2 L Hct 25.1 L MCV 94.6 MCH 31.1 MCHC 32.8 RDW 18.4 H Plt Count 174 MPV 9.1 Absolute Neuts (auto) Neutrophils % Neutrophils % (Manual) Band Neutrophils % Lymphocytes % Lymphocytes % (Manual) Monocytes % Monocytes % (Manual) Eosinophils % Eosinophils % (Manual) Basophils % Basophils % (Manual) Myelocytes % (Man) Promyelocytes % (Man) Blast Cells % (Manual) Nucleated RBC % Metamyelocytes Hypochromia Platelet Estimate Polychromasia Poikilocytosis Anisocytosis Microcytosis Macrocytosis Rouleaux PTT (Actin FS) 55.4 H 25.1 L Sodium Potassium Chloride Carbon Dioxide Anion Gap BUN Creatinine Est GFR (CKD-EPI)AfAm Est GFR (CKD-EPI)NonAf Random Glucose Calcium Phosphorus Magnesium Total Bilirubin AST ALT Alkaline Phosphatase Total Protein Albumin Blood Type Antibody Screen Crossmatch 10/11/19 10/11/19 05:30 05:30 WBC 5.3 RBC 2.52 L Hgb 7.8 L Hct 23.4 L MCV 92.6 MCH 30.9 MCHC 33.4 RDW 18.2 H Plt Count 162 MPV 9.0 Absolute Neuts (auto) 4.8 Neutrophils % 90.2 H Neutrophils % (Manual) Band Neutrophils % Lymphocytes % 2.9 L D Lymphocytes % (Manual) Monocytes % 6.7 Monocytes % (Manual) Eosinophils % 0.0 Eosinophils % (Manual) Basophils % 0.2 Basophils % (Manual) Myelocytes % (Man) Promyelocytes % (Man) Blast Cells % (Manual) Nucleated RBC % 0 Metamyelocytes Hypochromia Platelet Estimate Polychromasia Poikilocytosis Anisocytosis Microcytosis Macrocytosis Rouleaux PTT (Actin FS) Sodium 124 L Potassium 5.7 H Chloride 87 L Carbon Dioxide 22 Anion Gap 15 BUN 70.3 H Creatinine 3.1 H Est GFR (CKD-EPI)AfAm 16.25 Est GFR (CKD-EPI)NonAf 14.02 Random Glucose 108 H Calcium 7.9 L Phosphorus 6.8 H Magnesium 2.3 Total Bilirubin 0.3 AST 78 H ALT 158 H Alkaline Phosphatase 71 Total Protein 7.0 Albumin 1.5 L Blood Type Antibody Screen Crossmatch Active Medications Generic Name Dose Route Start Last Admin Trade Name Freq PRN Reason Stop Dose Admin Acetaminophen 650 mg 09/20/19 22:25 10/07/19 21:49 Tylenol - PO 650 mg Q6H PRN Administration FEVER Allopurinol 100 mg 10/10/19 13:49 Zyloprim - PO DAILY [facility] Aspirin 81 mg 09/25/19 10:00 10/10/19 10:11 Ecotrin - PO 81 mg DAILY [facility] Administration Atorvastatin Calcium 40 mg 09/20/19 22:00 10/10/19 21:37 Lipitor - PO 40 mg HS [facility] Administration Escitalopram Oxalate 10 mg 09/21/19 10:00 10/10/19 10:11 Lexapro - PO 10 mg DAILY [facility] Administration Furosemide 40 mg 09/21/19 10:00 10/10/19 10:11 Lasix Injection - IVPUSH 40 mg DAILY [facility] Administration Hydrocortisone Sodium Succinate 50 mg 10/07/19 16:00 10/11/19 03:09 Solu-Cortef - IVPB 50 mg Q6H-IV [facility] Administration Norepinephrine Bitartrate 8, 500 mls @ 18.75 mls/hr 09/27/19 22:00 10/10/19 22:15 000 mcg/ Dextrose IV Not Given TITR [facility] Protocol 5 MCG/MIN Amiodarone HCl/Dextrose 360 mg in 200 mls @ 16.667 mls/hr 10/07/19 09:15 08/20 01:24 Nexterone 360 Mg/200 Ml Bag IVPB 16.667 mls/hr ASDIR [facility] Administration Protocol 0.5 MG/MIN Ipratropium [place] 1 amp 10/06/19 22:27 10/10/19 20:06 Atrovent 0.02% Nebulizer - NEB 1 amp RQID PRN Administration Dyspnea Ipratropium [place] 1 amp 10/07/19 01:17 10/07/19 01:32 Atrovent 0.02% Nebulizer - NEB 1 amp Q1H PRN Administration WHEEZING Levothyroxine Sodium 75 mcg 09/21/19 07:00 10/11/19 06:50 Synthroid - PO 75 mcg DAILY@0700 [facility] Administration Midodrine 10 mg 10/06/19 18:00 10/10/19 18:32 Proamatine - PO 10 mg TID-MID [facility] Administration Nystatin 500,000 unit 10/07/19 22:00 10/11/19 06:50 Nystatin PO 10/12/19 22:00 500,000 unit TID [facility] Administration Pantoprazole Sodium 40 mg 09/21/19 10:00 10/10/19 10:12 Protonix - PO 40 mg DAILY [facility] Administration Valacyclovir HCl 500 mg 09/21/19 10:00 10/10/19 10:12 Valtrex - PO 500 mg DAILY [facility] Administration ASSESSMENT/PLAN: 73 y/o/f with PMHx of multiple myeloma (currently on treatment), amyloidosis, chronic anemia, hypertension, hyperlipidemia, hypothyroidism, GERD, admitted for UGIB, renal failure, volume overload, transferred to the ICU for hypotension refractory to IVF boluses. Suffered SD on 10/06. Remains on pressors to maintain adequate MAPs, considering disposition for termite technician care. #Neuro - AOx3 - Resumed Lexapro #Cardiovascular - EKG today done due to hyperkalemia, shows non specific T wave changes in V1-V3 , Trops orderede for 1PM, patient asymptomatic - Cardiogenic shock: Norepi, Midodrine 10mg PO, Milrinone D/C MAP target 60-65. - Tachycardia: rate control with Amio 200mg OD, switched from 0.5 infusion - Cardio recs: - Continue home meds Aspirin 81mg, Atorvastatin 40mg - Hydrocortisone Q6H #Pulm - CXR: unchanged from prior - Duonebs as needed - Continue Lasix 40mg IV #GI - Maroon stool, Heparin D/Scotty - FOBT ordered - GI (Dr. Perkins consuloted) #Renal - BUN/Cr: 39.8/0.8 -> 37.1/0.6 -> 37.1/0.7 -> 42.8/1.5 -> 50.4/1.8 -> 68.3/2.7 - Renal function worsening, likely from hypotension - Nephro recs: Lokelma for hyperkalemia #Heme/Onc - Multiple Myeloma: Continue Lokelma, Allopurinol decreased as per Nephro due to nephrotoxicity - Hg 8.2 -> 7.4 -> 6.9 -> 8.1 -> 7.5 -> 7.4 -> 8.2 -> 7.8, repeat CBC 1PM today - 1xPRBC 10/10, s/p 1xPRBC / #ID - ID recs: Stop abx, was previously on Meropenem #Endo - Hx of hypothyroidism - Continue levothyroxine #FEN - K 5.7, ordered Lokelma 10,g PO, EKG shows no signs of hyperkalemia - Na controlled diet #Prophylaxis - SCDs, Heparin D/Scotty #Dispo - DNR only, not DNI - ICU monitoring, possible transfer to tertiary center as per Dr. Burgess Visit type - Emergency Visit Emergency Visit: Yes ED Registration Date: 09/20/19 Care time: The patient presented to the Emergency Department on the above date and was hospitalized for further evaluation of their emergent condition. - New Patient This patient is new to me today: No - Critical Care Critical Care patient: Yes Total Critical Care Time (in minutes): 39 Critical Care Statement: The care of this patient involved high complexity decision making to prevent further life threatening deterioration of the patient 's condition and/or to evaluate & treat vital organ system(s) failure or risk of failure. ATTENDING PHYSICIAN STATEMENT I saw and evaluated the patient. I reviewed the resident's note and discussed the case with the resident. I agree with the resident's findings and plan as documented. SUBJECTIVE: OBJECTIVE: ASSESSMENT AND PLAN:
--- NOTE | 2019-10-11 09:38 | PN ---
Progress Note, Physician Chief Complaint: Pt A&Ox3; weak; otherwise, no compliants. History of Present Illness: 74 year old black female with PMH multiple myeloma, amyloidosis (s/p chemotherapy, abdomen-directed radiation Tx), HTN, HLD, CAD s/p coronary artery stenting, GERD, , ? "mild" systolic CHF (now noted severely reduced LVEF on ECHO ), on Lasix, rectal hemorrhoids, now presented to ED for diarrhea x2 days associated with generalized weakness, ROGERS. Pt reported she has had loose, watery diarrhea x2 days, and prior to that he had rectal bleeding x2 days (on toilet paper and mixed in stool) that self resolved. She reported she only noticed the bleeding because it was on the toilet paper, as she did not have abdominal or rectal pain. Pt reported generalized weakness and ROGERS, which prompted her to come to the ED. Pt denied nausea, vomiting, fever, abdominal pain, chest pain, increased LE swelling. She reported she believed her lower extremity swelling is actually improving. She also reported noticing a new "rash " to her right hip since last week. - Current Medication List Current Medications: Active Medications Acetaminophen (Tylenol -) 650 mg PO Q6H PRN PRN Reason: FEVER Last Admin: 10/07/19 21:49 Dose: 650 mg Allopurinol (Zyloprim -) 100 mg PO DAILY [facility] Aspirin (Ecotrin -) 81 mg PO DAILY [facility] Last Admin: 10/10/19 10:11 Dose: 81 mg Atorvastatin Calcium (Lipitor -) 40 mg PO HS [facility] Last Admin: 10/10/19 21:37 Dose: 40 mg Escitalopram Oxalate (Lexapro -) 10 mg PO DAILY [facility] Last Admin: 10/10/19 10:11 Dose: 10 mg Furosemide (Lasix Injection -) 40 mg IVPUSH DAILY [facility] Last Admin: 10/10/19 10:11 Dose: 40 mg Hydrocortisone Sodium Succinate (Solu-Cortef -) 50 mg IVPB Q6H-IV [facility] Last Admin: 10/11/19 03:09 Dose: 50 mg Norepinephrine Bitartrate 8, (000 mcg/ Dextrose) 500 mls @ 18.75 mls/hr IV TITR [facility]; Protocol Last Admin: 10/10/19 22:15 Dose: Not Given Amiodarone HCl/Dextrose (Nexterone 360 Mg/200 Ml Bag) 360 mg in 200 mls @ 16.667 mls/hr IVPB ASDIR [facility]; Protocol Last Admin: 10/11/19 01:24 Dose: 16.667 mls/hr Ipratropium [place] (Atrovent 0.02% Nebulizer -) 1 amp NEB RQID PRN PRN Reason: Dyspnea Last Admin: 10/10/19 20:06 Dose: 1 amp Ipratropium [place] (Atrovent 0.02% Nebulizer -) 1 amp NEB Q1H PRN PRN Reason: WHEEZING Last Admin: 10/07/19 01:32 Dose: 1 amp Levothyroxine Sodium (Synthroid -) 75 mcg PO DAILY@0700 [facility] Last Admin: 10/11/19 06:50 Dose: 75 mcg Midodrine (Proamatine -) 10 mg PO TID-MID [facility] Last Admin: 10/10/19 18:32 Dose: 10 mg Nystatin (Nystatin) 500,000 unit PO TID [facility] Stop: 10/12/19 22:00 Last Admin: 10/11/19 06:50 Dose: 500,000 unit Pantoprazole Sodium (Protonix -) 40 mg PO DAILY [facility] Last Admin: 10/10/19 10:12 Dose: 40 mg Valacyclovir HCl (Valtrex -) 500 mg PO DAILY [facility] Last Admin: 10/10/19 10:12 Dose: 500 mg - Objective Vital Signs: Vital Signs Temperature 97.9 F 10/11/19 06:00 Pulse Rate 74 10/11/19 08:36 Respiratory Rate 25 H 10/11/19 06:00 Blood Pressure 98/62 10/11/19 06:00 O2 Sat by Pulse Oximetry (%) 97 10/11/19 08:36 Constitutional: Yes: Calm Eyes: Yes: WNL HENT: Yes: WNL Neck: Yes: WNL Cardiovascular: Yes: S1, S2 Respiratory: Yes: Regular Gastrointestinal: Yes: Soft ...Rectal Exam: Yes: Deferred Genitourinary: No: Anuria Breast(s): Yes: WNL Musculoskeletal: Yes: Muscle Weakness Extremities: Yes: Cool Edema: No Peripheral Pulses WNL: No Peripheral Pulses: Left Doralis Pedis: 1+, Right Dorsalis Pedis: 1+ Integumentary: Yes: WNL Neurological: Yes: Alert, Oriented, Weakness Psychiatric: Yes: WNL Labs: CBC, BMP 10/11/19 05:30 10/11/19 05:30 INR, PTT INR 0.99 (0.83-1.09) 10/07/19 02:55 Abnormal Lab Results 10/11/19 10/11/19 10/11/19 05:30 05:30 05:30 RBC 2.52 L Hgb 7.8 L Hct 23.4 L RDW 18.2 H Neutrophils % 90.2 H Neutrophils % (Manual) Lymphocytes % 2.9 L D Lymphocytes % (Manual) Monocytes % (Manual) PTT (Actin FS) 25.1 L Sodium 124 L Potassium 5.7 H Chloride 87 L BUN 70.3 H Creatinine 3.1 H Random Glucose 108 H Calcium 7.9 L Phosphorus 6.8 H AST 78 H ALT 158 H Troponin I Albumin 1.5 L 10/11/19 10/11/19 13:30 13:30 RBC 2.53 L Hgb 7.9 L Hct 23.6 L RDW 18.1 H Neutrophils % 93.1 H Neutrophils % (Manual) 96.0 H Lymphocytes % 2.3 L D Lymphocytes % (Manual) 1.0 L Monocytes % (Manual) 3 L PTT (Actin FS) Sodium Potassium Chloride BUN Creatinine Random Glucose Calcium Phosphorus AST ALT Troponin I 5.41 H* Albumin - ....Imaging Chest X-ray: Image Reviewed EKG: Image Reviewed Other: Image Reviewed (telemetry: NSR;) Problem List - Problems (1) Weakness Code(s): R53.1 - WEAKNESS (2) ASHD (arteriosclerotic heart disease) Code(s): I25.10 - ATHSCL HEART DISEASE OF [place] CORONARY ARTERY W/O ANG PCTRS (3) Acute on chronic systolic CHF (congestive heart failure) Assessment/Plan: Now off milrinone. Tapering off norepinephrine. On amiodarone: change to PO. IV heparin discontinued (decreasing TNI; GI bleed-->PRBCs). Code(s): I50.23 - ACUTE ON CHRONIC SYSTOLIC (CONGESTIVE) HEART FAILURE (4) Adult onset hypothyroidism Assessment/Plan: mildly elevated TSH; normal Free T4 in ICU setting. Code(s): E03.8 - OTHER SPECIFIED HYPOTHYROIDISM (5) Anxiety Code(s): F41.9 - ANXIETY DISORDER, UNSPECIFIED (6) Elevated troponin Code(s): R74.8 - ABNORMAL LEVELS OF OTHER SERUM ENZYMES (7) HLD (hyperlipidemia) Assessment/Plan: On statin (increase dose to 80 mg daily atorvastatin in setting of [place]; LDL 107 mg/dl). Code(s): E78.5 - HYPERLIPIDEMIA, UNSPECIFIED Qualifiers: Hyperlipidemia type: unspecified Qualified Code(s): E78.5 - Hyperlipidemia , unspecified (8) History of heart artery stent Code(s): Z95.5 - PRESENCE OF CORONARY ANGIOPLASTY IMPLANT AND GRAFT (9) Multiple myeloma Assessment/Plan: f/u with oncologist/underwriting manager. Code(s): C90.00 - MULTIPLE MYELOMA NOT HAVING ACHIEVED REMISSION Qualifiers: Multiple myeloma remission status: not in remission Qualified Code(s): C90.00 - Multiple myeloma not having achieved remission (10) Pancytopenia Code(s): D61.818 - OTHER PANCYTOPENIA (11) NSTEMI (non-ST elevated myocardial infarction) Assessment/Plan: see under "Acute Systolic CHF". Code(s): I21.4 - NON-ST ELEVATION (NSTEMI) MYOCARDIAL INFARCTION (12) Acute renal insufficiency Code(s): N28.9 - DISORDER OF KIDNEY AND URETER, UNSPECIFIED (13) Hypoalbuminemia Code(s): E88.09 - OTH DISORDERS OF PLASMA-PROTEIN METABOLISM, NEC (14) Hyperkalemia Assessment/Plan: 5.5--5.7; f/u EKG, and treat if significant changes. Code(s): E87.5 - HYPERKALEMIA Assessment/Plan CCU juan spent: 35 minutes.
[2019-10-11] MEDS: MIDODRINE HCL 5 MG TABLET PO SCH ×3 (09:40→17:23)
[2019-10-11] MEDS: ESCITALOPRAM OXALATE 10 MG TABLET (FP) PO SCH (09:40)
[2019-10-11] MEDS: PANTOPRAZOLE 40 MG TABLET (FP) PO SCH (09:40)
[2019-10-11] MEDS: ALLOPURINOL 100 MG TABLET (FP) PO SCH (09:40)
[2019-10-11] MEDS: valACYclovir HCL 500 MG TABLET (FP) PO SCH (09:40)
[2019-10-11] MEDS: FUROSEMIDE 40 MG/4 ML INJECTABLE VIAL IVPUSH SCH (09:41)
[2019-10-11] MEDS: ASPIRIN COATED 81 MG TABLET.EC PO SCH (09:41)
[2019-10-11] MEDS ORDERED: SODIUM ZIRCONIUM CYCLOSILICATE (LOKELMA) 5 GM PACKET PO ONE (10:36)
[2019-10-11] MEDS ORDERED: AMIODARONE HCL 200 MG TABLET (FP) PO SCH ×2 (11:00→22:00)
--- NOTE | 2019-10-11 11:15 | EKG ---
Test Reason : Blood Pressure : / mmHG Vent. Rate : 075 BPM Atrial Rate : 312 BPM P-R Int : 000 ms QRS Dur : 128 ms QT Int : 412 ms P-R-T Axes : 000 -40 192 degrees QTc Int : 460 ms SINUS RHYTHM WITH 1ST DEGREE A-V BLOCK LEFT AXIS DEVIATION NON-SPECIFIC INTRA-VENTRICULAR CONDUCTION BLOCK CANNOT RULE OUT ANTERIOR INFARCT , AGE UNDETERMINED T WAVE ABNORMALITY, CONSIDER LATERAL ISCHEMIA ABNORMAL ECG Confirmed by MD LETICIA, LUIS ANGEL ([id number]) on 10/11/2019 11:14:28 AM Referred By: Hilary HOSKINS Confirmed By:LUIS ANGEL KELLY MD
--- NOTE | 2019-10-11 11:31 | PN ---
Teaching Attending Note Name of Resident: Roger Herr ATTENDING PHYSICIAN STATEMENT I saw and evaluated the patient. I reviewed the resident's note and discussed the case with the resident. I agree with the resident's findings and plan as documented. SUBJECTIVE: Pt seen and examined in the ICU. Off milrinone, remains on levophed gtt. Nauseous this AM. Had bloody bowel movement overnight. Heparin gtt stopped. OBJECTIVE: Vital Signs Period Temp Pulse Resp BP Sys/Moss Pulse Ox Last 24 Hr 97.4 F-98.5 F 67-87 18-28 93-111/55-80 96-97 Intake & Output 10/08/19 10/09/19 10/10/19 10/11/19 23:59 23:59 23:59 23:59 Intake Total 2208 1925 2191.2 286.0 Output Total 1350 200 110 50 Balance 858 1725 2081.2 236.0 Weight 77.882 kg 76.249 kg 78.5 kg 79.878 kg Gen: mildly tachypneic at rest Heart: RRR Lung: decreased breath sounds at the bases Abd: soft, nontender Ext: + edema CBC, BMP 10/11/19 05:30 10/11/19 05:30 Active Medications Acetaminophen (Tylenol -) 650 mg PO Q6H PRN PRN Reason: FEVER Last Admin: 10/07/19 21:49 Dose: 650 mg Allopurinol (Zyloprim -) 100 mg PO DAILY [facility] Last Admin: 10/11/19 09:40 Dose: 100 mg Amiodarone HCl (Cordarone -) 200 mg PO BID [facility] Stop: 10/25/19 10:01 Aspirin (Ecotrin -) 81 mg PO DAILY [facility] Last Admin: 10/11/19 09:41 Dose: 81 mg Atorvastatin Calcium (Lipitor -) 40 mg PO HS [facility] Last Admin: 10/10/19 21:37 Dose: 40 mg Escitalopram Oxalate (Lexapro -) 10 mg PO DAILY [facility] Last Admin: 10/11/19 09:40 Dose: 10 mg Furosemide (Lasix Injection -) 40 mg IVPUSH DAILY [facility] Last Admin: 10/11/19 09:41 Dose: 40 mg Hydrocortisone Sodium Succinate (Solu-Cortef -) 50 mg IVPB Q6H-IV [facility] Last Admin: 10/11/19 09:40 Dose: 50 mg Norepinephrine Bitartrate 8, (000 mcg/ Sodium Chloride) 500 mls @ 18.75 mls/hr IV TITR [facility]; Protocol Ipratropium [place] (Atrovent 0.02% Nebulizer -) 1 amp NEB RQID PRN PRN Reason: Dyspnea Last Admin: 10/10/19 20:06 Dose: 1 amp Ipratropium [place] (Atrovent 0.02% Nebulizer -) 1 amp NEB Q1H PRN PRN Reason: WHEEZING Last Admin: 10/07/19 01:32 Dose: 1 amp Levothyroxine Sodium (Synthroid -) 75 mcg PO DAILY@0700 [facility] Last Admin: 10/11/19 06:50 Dose: 75 mcg Midodrine (Proamatine -) 10 mg PO TID-MID [facility] Last Admin: 10/11/19 09:40 Dose: 10 mg Nystatin (Nystatin) 500,000 unit PO TID [facility] Stop: 10/12/19 22:00 Last Admin: 10/11/19 06:50 Dose: 500,000 unit Pantoprazole Sodium (Protonix -) 40 mg PO DAILY [facility] Last Admin: 10/11/19 09:40 Dose: 40 mg Valacyclovir HCl (Valtrex -) 500 mg PO DAILY [facility] Last Admin: 10/11/19 09:40 Dose: 500 mg ASSESSMENT AND PLAN: Acute on Chronic Systolic Heart Failure Cardiogenic Shock Acute on Chronic Renal Failure CAD Acute NSTEMI Paroxysmal Atrial Fibrillation Pneumonia Asthma Multiple Myeloma HTN Hyperlipidemia Hypothyroidism Anemia - taper levophed gtt - monitor urine output, creatinine - daily weights - amiodarone - monitor H/H - cycle cardiac enzymes - completed antibiotics - O2 to keep SpO2 >90% - inhaled bronchodilators as needed - DVT prophylaxis - continue ICU monitoring critical care time spent in reviewing chart, evaluating patient and formulating plan 35 min
[2019-10-11] MEDS: NOREPINEPHRINE BITARTRATE 8,000 MCG in SODIUM CHLORIDE 492 ML IV SCH (13:10)
[2019-10-11 13:43] LABS: BASO % 0.3 % (0-2.0); HEMATOCRIT 23.6 % (32.4-45.2); HEMOGLOBIN 7.9 GM/dL (10.7-15.3); LYMPH % 2.3 % (8-40); MCH 31.2 pg (25.7-33.7); MCHC 33.5 g/dl (32.0-36.0); MEAN CELL VOLUME 93.2 fl (80-96); MEAN PLT VOLUME 9.1 fl (7.5-11.1); MONO % 4.3 % (3.8-10.2); NEUT % 93.1 % (42.8-82.8); PLATELET COUNT 156 K/MM3 (134-434); RBC 2.53 M/mm3 (3.60-5.2); RDW 18.1 % (11.6-15.6); WHITE BLOOD COUNT 5.1 K/mm3 (4.0-10.0)
--- NOTE | 2019-10-11 14:05 | PN ---
Progress Note, Physician History of Present Illness: continues to require pressors still with resp issues high flow nasal canula - Current Medication List Current Medications: Active Medications Acetaminophen (Tylenol -) 650 mg PO Q6H PRN PRN Reason: FEVER Last Admin: 10/07/19 21:49 Dose: 650 mg Allopurinol (Zyloprim -) 100 mg PO DAILY [facility] Last Admin: 10/11/19 09:40 Dose: 100 mg Amiodarone HCl (Cordarone -) 200 mg PO BID [facility] Aspirin (Ecotrin -) 81 mg PO DAILY [facility] Last Admin: 10/11/19 09:41 Dose: 81 mg Atorvastatin Calcium (Lipitor -) 40 mg PO HS [facility] Last Admin: 10/10/19 21:37 Dose: 40 mg Escitalopram Oxalate (Lexapro -) 10 mg PO DAILY [facility] Last Admin: 10/11/19 09:40 Dose: 10 mg Furosemide (Lasix Injection -) 40 mg IVPUSH DAILY [facility] Last Admin: 10/11/19 09:41 Dose: 40 mg Hydrocortisone Sodium Succinate (Solu-Cortef -) 50 mg IVPB Q6H-IV [facility] Last Admin: 10/11/19 09:40 Dose: 50 mg Norepinephrine Bitartrate 8, (000 mcg/ Sodium Chloride) 500 mls @ 18.75 mls/hr IV TITR [facility]; Protocol Last Admin: 10/11/19 13:10 Dose: 2 mcg/min, 7.5 mls/hr Ipratropium [place] (Atrovent 0.02% Nebulizer -) 1 amp NEB RQID PRN PRN Reason: Dyspnea Last Admin: 10/10/19 20:06 Dose: 1 amp Ipratropium [place] (Atrovent 0.02% Nebulizer -) 1 amp NEB Q1H PRN PRN Reason: WHEEZING Last Admin: 10/07/19 01:32 Dose: 1 amp Levothyroxine Sodium (Synthroid -) 75 mcg PO DAILY@0700 [facility] Last Admin: 10/11/19 06:50 Dose: 75 mcg Midodrine (Proamatine -) 10 mg PO TID-MID [facility] Last Admin: 10/11/19 13:10 Dose: 10 mg Nystatin (Nystatin) 500,000 unit PO TID [facility] Stop: 10/12/19 22:00 Last Admin: 10/11/19 13:11 Dose: 500,000 unit Pantoprazole Sodium (Protonix -) 40 mg PO DAILY [facility] Last Admin: 10/11/19 09:40 Dose: 40 mg Valacyclovir HCl (Valtrex -) 500 mg PO DAILY [facility] Last Admin: 10/11/19 09:40 Dose: 500 mg - Objective Vital Signs: Vital Signs Temperature 97.4 F L 10/11/19 10:00 Pulse Rate 75 10/11/19 13:10 Respiratory Rate 26 H 10/11/19 12:00 Blood Pressure 97/58 L 10/11/19 13:10 O2 Sat by Pulse Oximetry (%) 97 10/11/19 10:00 Constitutional: Yes: No Distress, Calm Cardiovascular: Yes: S1, S2 Respiratory: Yes: Poor Air Entry, Other (on high flow nasal canula) Gastrointestinal: Yes: Normal Bowel Sounds, Soft Musculoskeletal: Yes: WNL Extremities: Yes: WNL Neurological: Yes: Alert, Oriented Psychiatric: Yes: Alert, Oriented Labs: CBC, BMP 10/11/19 13:30 10/11/19 05:30 INR, PTT INR 0.99 (0.83-1.09) 10/07/19 02:55 Assessment/Plan Problem List - Problems (1) Anasarca Code(s): R60.1 - GENERALIZED EDEMA (2) Fluid overload Code(s): E87.70 - FLUID OVERLOAD, UNSPECIFIED (3) Hypoxia Code(s): R09.02 - HYPOXEMIA (4) Weakness Code(s): R53.1 - WEAKNESS (5) ASHD (arteriosclerotic heart disease) Code(s): I25.10 - ATHSCL HEART DISEASE OF [place] CORONARY ARTERY W/O ANG PCTRS (6) Acute exacerbation of CHF (congestive heart failure) Code(s): I50.9 - HEART FAILURE, UNSPECIFIED (7) Acute on chronic systolic CHF (congestive heart failure) Code(s): I50.23 - ACUTE ON CHRONIC SYSTOLIC (CONGESTIVE) HEART FAILURE (8) Adult onset hypothyroidism Code(s): E03.8 - OTHER SPECIFIED HYPOTHYROIDISM (9) Anemia Code(s): D64.9 - ANEMIA, UNSPECIFIED (10) CKD (chronic kidney disease) Code(s): N18.9 - CHRONIC KIDNEY DISEASE, UNSPECIFIED (11) Elevated troponin Code(s): R74.8 - ABNORMAL LEVELS OF OTHER SERUM ENZYMES (12) HLD (hyperlipidemia) Code(s): E78.5 - HYPERLIPIDEMIA, UNSPECIFIED Qualifiers: Hyperlipidemia type: unspecified Qualified Code(s): E78.5 - Hyperlipidemia , unspecified (13) HTN (hypertension) Code(s): I10 - ESSENTIAL (PRIMARY) HYPERTENSION Qualifiers: Hypertension type: unspecified Qualified Code(s): I10 - Essential (primary ) hypertension (14) History of heart artery stent Code(s): Z95.5 - PRESENCE OF CORONARY ANGIOPLASTY IMPLANT AND GRAFT (15) Multiple myeloma Code(s): C90.00 - MULTIPLE MYELOMA NOT HAVING ACHIEVED REMISSION Qualifiers: Multiple myeloma remission status: not in remission Qualified Code(s): C90.00 - Multiple myeloma not having achieved remission uti hypotension Assessment/Plan continue current mgmt monitor per resp support close watch will hold off on abx rest as per icu cc 40 min
[2019-10-11 14:14] LABS: PLATELET ESTIMATE ADEQUATE
[2019-10-11] MEDS: AMIODARONE HCL 200 MG TABLET (FP) PO SCH ×2 (14:40→21:57)
--- NOTE | 2019-10-11 15:37 | PN ---
Progress Note, Physician History of Present Illness: Pt seen and examined at bedside. She complains of difficult breathing. - Current Medication List Current Medications: Active Medications Acetaminophen (Tylenol -) 650 mg PO Q6H PRN PRN Reason: FEVER Last Admin: 10/07/19 21:49 Dose: 650 mg Allopurinol (Zyloprim -) 100 mg PO DAILY [facility] Last Admin: 10/11/19 09:40 Dose: 100 mg Amiodarone HCl (Cordarone -) 200 mg PO BID [facility] Last Admin: 10/11/19 14:40 Dose: 200 mg Aspirin (Ecotrin -) 81 mg PO DAILY [facility] Last Admin: 10/11/19 09:41 Dose: 81 mg Atorvastatin Calcium (Lipitor -) 40 mg PO HS [facility] Last Admin: 10/10/19 21:37 Dose: 40 mg Escitalopram Oxalate (Lexapro -) 10 mg PO DAILY [facility] Last Admin: 10/11/19 09:40 Dose: 10 mg Furosemide (Lasix Injection -) 40 mg IVPUSH DAILY [facility] Last Admin: 10/11/19 09:41 Dose: 40 mg Hydrocortisone Sodium Succinate (Solu-Cortef -) 50 mg IVPB Q6H-IV [facility] Last Admin: 10/11/19 14:46 Dose: 50 mg Norepinephrine Bitartrate 8, (000 mcg/ Sodium Chloride) 500 mls @ 18.75 mls/hr IV TITR [facility]; Protocol Last Admin: 10/11/19 13:10 Dose: 2 mcg/min, 7.5 mls/hr Ipratropium [place] (Atrovent 0.02% Nebulizer -) 1 amp NEB RQID PRN PRN Reason: Dyspnea Last Admin: 10/10/19 20:06 Dose: 1 amp Ipratropium [place] (Atrovent 0.02% Nebulizer -) 1 amp NEB Q1H PRN PRN Reason: WHEEZING Last Admin: 10/07/19 01:32 Dose: 1 amp Levothyroxine Sodium (Synthroid -) 75 mcg PO DAILY@0700 [facility] Last Admin: 10/11/19 06:50 Dose: 75 mcg Midodrine (Proamatine -) 10 mg PO TID-MID [facility] Last Admin: 10/11/19 13:10 Dose: 10 mg Nystatin (Nystatin) 500,000 unit PO TID [facility] Stop: 10/12/19 22:00 Last Admin: 10/11/19 13:11 Dose: 500,000 unit Pantoprazole Sodium (Protonix -) 40 mg PO DAILY [facility] Last Admin: 10/11/19 09:40 Dose: 40 mg Valacyclovir HCl (Valtrex -) 500 mg PO DAILY [facility] Last Admin: 10/11/19 09:40 Dose: 500 mg - Objective Vital Signs: Vital Signs Temperature 97.4 F L 10/11/19 14:00 Pulse Rate 79 10/11/19 14:00 Respiratory Rate 29 H 10/11/19 14:00 Blood Pressure 99/59 L 10/11/19 14:00 O2 Sat by Pulse Oximetry (%) 97 10/11/19 10:00 Constitutional: Yes: Calm Eyes: Yes: Conjunctiva Clear HENT: Yes: Atraumatic Neck: Yes: Supple Cardiovascular: Yes: Tachycardia, S1, S2 Respiratory: Yes: On Nasal O2 Gastrointestinal: Yes: Soft Musculoskeletal: Yes: Muscle Weakness Edema: Yes Edema: LLE: 2+, RLE: 2+ Neurological: Yes: Oriented Psychiatric: Yes: Oriented Labs: CBC, BMP 10/11/19 13:30 10/11/19 05:30 INR, PTT INR 0.99 (0.83-1.09) 10/07/19 02:55 Problem List - Problems (1) Fluid overload Code(s): E87.70 - FLUID OVERLOAD, UNSPECIFIED (2) CKD (chronic kidney disease) Code(s): N18.9 - CHRONIC KIDNEY DISEASE, UNSPECIFIED Assessment/Plan Current Medications Generic Name Dose Route Start Last Admin Trade Name Freq PRN Reason Stop Dose Admin Acetaminophen 650 mg 09/20/19 22:25 10/07/19 21:49 Tylenol - PO 650 mg Q6H PRN Administration FEVER Allopurinol 100 mg 10/10/19 13:49 10/11/19 09:40 Zyloprim - PO 100 mg DAILY [facility] Administration Amiodarone HCl 200 mg 10/11/19 12:54 10/11/19 14:40 Cordarone - PO 200 mg BID [facility] Administration Aspirin 81 mg 09/25/19 10:00 10/11/19 09:41 Ecotrin - PO 81 mg DAILY [facility] Administration Atorvastatin Calcium 40 mg 09/20/19 22:00 10/10/19 21:37 Lipitor - PO 40 mg HS [facility] Administration Escitalopram Oxalate 10 mg 09/21/19 10:00 10/11/19 09:40 Lexapro - PO 10 mg DAILY [facility] Administration Furosemide 40 mg 09/21/19 10:00 10/11/19 09:41 Lasix Injection - IVPUSH 40 mg DAILY [facility] Administration Hydrocortisone Sodium Succinate 50 mg 10/07/19 16:00 10/11/19 14:46 Solu-Cortef - IVPB 50 mg Q6H-IV [facility] Administration Norepinephrine Bitartrate 8, 500 mls @ 18.75 mls/hr 10/11/19 11:00 10/11/19 13:10 000 mcg/ Sodium Chloride IV 2 mcg/min TITR [facility] 7.5 mls/hr Administration Protocol 5 MCG/MIN Ipratropium [place] 1 amp 10/06/19 22:27 10/10/19 20:06 Atrovent 0.02% Nebulizer - NEB 1 amp RQID PRN Administration Dyspnea Ipratropium [place] 1 amp 10/07/19 01:17 10/07/19 01:32 Atrovent 0.02% Nebulizer - NEB 1 amp Q1H PRN Administration WHEEZING Levothyroxine Sodium 75 mcg 09/21/19 07:00 10/11/19 06:50 Synthroid - PO 75 mcg DAILY@0700 [facility] Administration Midodrine 10 mg 10/06/19 18:00 10/11/19 13:10 Proamatine - PO 10 mg TID-MID [facility] Administration Nystatin 500,000 unit 10/07/19 22:00 10/11/19 13:11 Nystatin PO 10/12/19 22:00 500,000 unit TID [facility] Administration Pantoprazole Sodium 40 mg 09/21/19 10:00 10/11/19 09:40 Protonix - PO 40 mg DAILY [facility] Administration Valacyclovir HCl 500 mg 09/21/19 10:00 10/11/19 09:40 Valtrex - PO 500 mg DAILY [facility] Administration Impression 1. proteinuria 2. multiple myeloma 3. amyloid 4. dizziness 5. hypotension 6. HLD 7. hypothyroidism 8. anemia 9. CKD 10. fluid overload 11. hypotension 12. hyperkalemia 13. nstemi Plan - renal function is worsening - treat potassium medically - lasix if she tolerated - prognosis is poor - monitor cardiac enzymes - discussed with family
[2019-10-11] MEDS: IPRATROPIUM BR 0.02% 0.5 MG/2.5 ML VIAL.NEB. NEB PRN (21:23)
[2019-10-11] MEDS: ATORVASTATIN CA 40 MG TABLET (FP) PO SCH (21:57)
--- NOTE | 2019-10-11 23:41 | PN ---
Progress Note, Physician - Current Medication List Current Medications: Active Medications Acetaminophen (Tylenol -) 650 mg PO Q6H PRN PRN Reason: FEVER Last Admin: 10/07/19 21:49 Dose: 650 mg Allopurinol (Zyloprim -) 100 mg PO DAILY [facility] Last Admin: 10/11/19 09:40 Dose: 100 mg Amiodarone HCl (Cordarone -) 200 mg PO BID [facility] Last Admin: 10/11/19 21:57 Dose: 200 mg Aspirin (Ecotrin -) 81 mg PO DAILY [facility] Last Admin: 10/11/19 09:41 Dose: 81 mg Atorvastatin Calcium (Lipitor -) 40 mg PO HS [facility] Last Admin: 10/11/19 21:57 Dose: 40 mg Escitalopram Oxalate (Lexapro -) 10 mg PO DAILY [facility] Last Admin: 10/11/19 09:40 Dose: 10 mg Furosemide (Lasix Injection -) 40 mg IVPUSH DAILY [facility] Last Admin: 10/11/19 09:41 Dose: 40 mg Hydrocortisone Sodium Succinate (Solu-Cortef -) 50 mg IVPB Q6H-IV [facility] Last Admin: 10/11/19 20:50 Dose: 50 mg Norepinephrine Bitartrate 8, (000 mcg/ Sodium Chloride) 500 mls @ 18.75 mls/hr IV TITR [facility]; Protocol Last Titration: 10/11/19 17:24 Dose: 1 mcg/min, 3.75 mls/hr Ipratropium [place] (Atrovent 0.02% Nebulizer -) 1 amp NEB RQID PRN PRN Reason: Dyspnea Last Admin: 10/11/19 21:23 Dose: 1 amp Ipratropium [place] (Atrovent 0.02% Nebulizer -) 1 amp NEB Q1H PRN PRN Reason: WHEEZING Last Admin: 10/07/19 01:32 Dose: 1 amp Levothyroxine Sodium (Synthroid -) 75 mcg PO DAILY@0700 [facility] Last Admin: 10/11/19 06:50 Dose: 75 mcg Midodrine (Proamatine -) 10 mg PO TID-MID [facility] Last Admin: 10/11/19 17:23 Dose: 10 mg Nystatin (Nystatin) 500,000 unit PO TID [facility] Stop: 10/12/19 22:00 Last Admin: 10/11/19 21:57 Dose: 500,000 unit Pantoprazole Sodium (Protonix -) 40 mg PO DAILY [facility] Last Admin: 10/11/19 09:40 Dose: 40 mg Valacyclovir HCl (Valtrex -) 500 mg PO DAILY [facility] Last Admin: 10/11/19 09:40 Dose: 500 mg - Objective Vital Signs: Vital Signs Temperature 97.3 F L 10/11/19 22:00 Pulse Rate 85 10/11/19 22:00 Respiratory Rate 27 H 10/11/19 22:00 Blood Pressure 96/52 L 10/11/19 22:00 O2 Sat by Pulse Oximetry (%) 98 10/11/19 22:00 Labs: CBC, BMP 10/11/19 13:30 10/11/19 05:30 INR, PTT INR 0.99 (0.83-1.09) 10/07/19 02:55 Problem List - Problems (1) Elevated troponin Code(s): R74.8 - ABNORMAL LEVELS OF OTHER SERUM ENZYMES (2) Acute on chronic systolic CHF (congestive heart failure) Code(s): I50.23 - ACUTE ON CHRONIC SYSTOLIC (CONGESTIVE) HEART FAILURE (3) Multiple myeloma Code(s): C90.00 - MULTIPLE MYELOMA NOT HAVING ACHIEVED REMISSION Qualifiers: Multiple myeloma remission status: not in remission Qualified Code(s): C90.00 - Multiple myeloma not having achieved remission (4) HLD (hyperlipidemia) Code(s): E78.5 - HYPERLIPIDEMIA, UNSPECIFIED Qualifiers: Hyperlipidemia type: unspecified Qualified Code(s): E78.5 - Hyperlipidemia , unspecified (5) Hypothyroidism Code(s): E03.9 - HYPOTHYROIDISM, UNSPECIFIED Qualifiers: Hypothyroidism type: acquired Qualified Code(s): E03.9 - Hypothyroidism, unspecified (6) CAD (coronary artery disease) Code(s): I25.10 - ATHSCL HEART DISEASE OF [place] CORONARY ARTERY W/O ANG PCTRS Qualifiers: (7) Depression Code(s): F32.9 - MAJOR DEPRESSIVE DISORDER, SINGLE EPISODE, UNSPECIFIED (8) History of heart artery stent Code(s): Z95.5 - PRESENCE OF CORONARY ANGIOPLASTY IMPLANT AND GRAFT (9) Diarrhea Code(s): R19.7 - [place], UNSPECIFIED Qualifiers: Diarrhea type: unspecified type Qualified Code(s): R19.7 - Diarrhea, unspecified (10) UTI (urinary tract infection) Code(s): N39.0 - URINARY TRACT INFECTION, SITE NOT SPECIFIED
[2019-10-12] MEDS: HYDROCORTISONE SOD SUCCINATE 100 MG/2 ML VIAL IVPB SCH ×4 (02:29→21:06)
[2019-10-12] MEDS: NYSTATIN 500,000 UNITS TABLET PO SCH ×3 (05:18→21:05)
[2019-10-12] MEDS: LEVOTHYROXINE NA 75 MCG TABLET (FP) PO SCH (06:14)
[2019-10-12 08:02] LABS: BASO % 0.2 % (0-2.0); HEMOGLOBIN 7.9 GM/dL (10.7-15.3); LYMPH % 1.8 % (8-40); MCHC 34.5 g/dl (32.0-36.0); MEAN CELL VOLUME 92.7 fl (80-96); MEAN PLT VOLUME 9.8 fl (7.5-11.1); MONO % 4.6 % (3.8-10.2); NEUT % 93.4 % (42.8-82.8); PLATELET COUNT 141 K/MM3 (134-434); RBC 2.48 M/mm3 (3.60-5.2); RDW 18.2 % (11.6-15.6); WHITE BLOOD COUNT 5.3 K/mm3 (4.0-10.0)
--- NOTE | 2019-10-12 08:19 | PN ---
Physical Exam: SUBJECTIVE: Patient seen and examined by the bedside. Appears to have labored breathing with accessory muscle use. Had BM with scant blood at 6AM. States her cough has worsened. OBJECTIVE: Vital Signs Period Temp Pulse Resp BP Sys/[place]oss Pulse Ox Last 24 Hr 97.2 F-97.5 F 74-102 19-29 91-136/52-91 97-98 GENERAL: AOx3,complaining of worsening cough HEAD: Normal with no signs of trauma, EOMI, dry MM, trachea midline. LUNGS: On high flow (40L, 60%) clear B/L, clear with no wheezes, no crackles, labored breathing with accessory muscle use HEART: RRR, S1, S2 without murmur, rub or gallop. ABDOMEN: Soft, non-tender, non-distended, no guarding. EXTREMITIES: 2+ edema B/L , 2+ pulses, warm NEUROLOGICAL: Normal speech, gait not observed. SKIN: Warm, dry, no rashes observed. Laboratory Results - last 24 hr 10/11/19 10/11/19 10/12/19 13:30 13:30 05:40 WBC 5.1 RBC 2.53 L Hgb 7.9 L Hct 23.6 L MCV 93.2 MCH 31.2 MCHC 33.5 RDW 18.1 H Plt Count 156 MPV 9.1 Absolute Neuts (auto) 4.8 Total Counted 100 Neutrophils % 93.1 H Neutrophils % (Manual) 96.0 H Lymphocytes % 2.3 L D Lymphocytes % (Manual) 1.0 L Monocytes % 4.3 Monocytes % (Manual) 3 L Eosinophils % 0.0 Basophils % 0.3 Nucleated RBC % 0 Platelet Estimate Adequate Platelet Comment Rare giant plts PTT (Actin FS) 29.7 Creatine Kinase 109 Troponin I 5.41 H* 10/12/19 05:40 WBC 5.3 RBC 2.48 L Hgb 7.9 L Hct 23.0 L MCV 92.7 MCH 32.0 MCHC 34.5 RDW 18.2 H Plt Count 141 MPV 9.8 Absolute Neuts (auto) 5.0 Total Counted Neutrophils % 93.4 H Neutrophils % (Manual) Lymphocytes % 1.8 L D Lymphocytes % (Manual) Monocytes % 4.6 Monocytes % (Manual) Eosinophils % 0.0 Basophils % 0.2 Nucleated RBC % 1 H Platelet Estimate Platelet Comment PTT (Actin FS) Creatine Kinase Troponin I Active Medications Generic Name Dose Route Start Last Admin Trade Name [place] PRN Reason Stop Dose Admin Acetaminophen 650 mg 09/20/19 22:25 10/07/19 21:49 Tylenol - PO 650 mg Q6H PRN Administration FEVER Allopurinol 100 mg 10/10/19 13:49 10/11/19 09:40 Zyloprim - PO 100 mg DAILY [facility] Administration Amiodarone HCl 200 mg 10/11/19 12:54 10/11/19 21:57 Cordarone - PO 200 mg BID [facility] Administration Aspirin 81 mg 09/25/19 10:00 10/11/19 09:41 Ecotrin - PO 81 mg DAILY [facility] Administration Atorvastatin Calcium 40 mg 09/20/19 22:00 10/11/19 21:57 Lipitor - PO 40 mg HS [facility] Administration Escitalopram Oxalate 10 mg 09/21/19 10:00 10/11/19 09:40 Lexapro - PO 10 mg DAILY [facility] Administration Furosemide 40 mg 09/21/19 10:00 10/11/19 09:41 Lasix Injection - IVPUSH 40 mg DAILY [facility] Administration Hydrocortisone Sodium Succinate 50 mg 10/07/19 16:00 10/12/19 02:29 Solu-Cortef - IVPB 50 mg Q6H-IV [facility] Administration Norepinephrine Bitartrate 8, 500 mls @ 18.75 mls/hr 10/11/19 11:00 10/11/19 17:24 000 mcg/ Sodium Chloride IV 1 mcg/min TITR [facility] 3.75 mls/hr Titration Protocol 5 MCG/MIN Ipratropium [place] 1 amp 10/06/19 22:27 10/11/19 21:23 Atrovent 0.02% Nebulizer - NEB 1 amp RQID PRN Administration Dyspnea Levothyroxine Sodium 75 mcg 09/21/19 07:00 10/12/19 06:14 Synthroid - PO 75 mcg DAILY@0700 [facility] Administration Midodrine 10 mg 10/06/19 18:00 10/11/19 17:23 Proamatine - PO 10 mg TID-MID [facility] Administration Nystatin 500,000 unit 10/07/19 22:00 10/12/19 05:18 Nystatin PO 10/12/19 22:00 500,000 unit TID [facility] Administration Pantoprazole Sodium 40 mg 09/21/19 10:00 10/11/19 09:40 Protonix - PO 40 mg DAILY [facility] Administration Valacyclovir HCl 500 mg 09/21/19 10:00 10/11/19 09:40 Valtrex - PO 500 mg DAILY [facility] Administration ASSESSMENT/PLAN: 73 y/o/f with PMHx of multiple myeloma (currently on treatment), amyloidosis, chronic anemia, hypertension, hyperlipidemia, hypothyroidism, GERD, admitted for UGIB, renal failure, volume overload, transferred to the ICU for hypotension refractory to IVF boluses. #Neuro - AOx3, resumed Lexapro #Cardiovascular - Trops 5.4 -> 4.6, K+ again elevated today 5.9, EKG shows non specific V1-V3 changes - Cardiogenic shock: Norepi, Midodrine 10mg PO, Milrinone D/C MAP target 60-65. - Tachycardia: rate control with Amio 200mg BID, switched from 0.5 infusion - Cardio recs: - Continue home meds Aspirin 81mg, Atorvastatin 40mg - Hydrocortisone Q6H #Pulm - CXR: unchanged from prior - Duonebs as needed - Lasix drip 10 units/HR #GI - Small bloody BM again at 6AM - FOBT ordered - GI (Dr. Perkins consulted) #Renal - BUN/Cr: 39.8/0.8 -> 37.1/0.6 -> 37.1/0.7 -> 42.8/1.5 -> 50.4/1.8 -> 68.3/2.7 - Lasix drip started @ 10 units/HR - Renal function worsening, likely from hypotension - Nephro recs: Lasix drip, medical management of hyperkalemia #Heme/Onc - Multiple Myeloma: Continue Lokelma, Allopurinol decreased as per Nephro due to nephrotoxicity - Hg 8.2 -> 7.4 -> 6.9 -> 8.1 -> 7.5 -> 7.4 -> 8.2 -> 7.8 -> 7.9 -> 7.9 - 1xPRBC 10/10, s/p 1xPRBC 10/07 #ID - ID recs: Stop abx, was previously on Meropenem #Endo - Hx of hypothyroidism - Continue levothyroxine #FEN - K 5.9, given Ca 1g IV, Bicarb 8.4% 50mEQ, Insulin IV 7 units, Dextrose 1amp, Lokelma 10g - Albumin 25gm - Repeat CBC @ 4PM - NPO pending GI recs #Prophylaxis - SCDs, Heparin D/Scotty #Dispo - DNR only, not DNI - ICU monitoring Visit type - Emergency Visit Emergency Visit: Yes ED Registration Date: 09/20/19 Care time: The patient presented to the Emergency Department on the above date and was hospitalized for further evaluation of their emergent condition. - New Patient This patient is new to me today: No - Critical Care Critical Care patient: Yes Total Critical Care Time (in minutes): 39 Critical Care Statement: The care of this patient involved high complexity decision making to prevent further life threatening deterioration of the patient 's condition and/or to evaluate & treat vital organ system(s) failure or risk of failure. ATTENDING PHYSICIAN STATEMENT I saw and evaluated the patient. I reviewed the resident's note and discussed the case with the resident. I agree with the resident's findings and plan as documented. SUBJECTIVE: OBJECTIVE: ASSESSMENT AND PLAN:
[2019-10-12 08:25] LABS: ALBUMIN 1.6 g/dl (3.4-5.0); BILIRUBIN,TOTAL 0.3 mg/dL (0.2-1); BLOOD UREA NITROGEN 78.8 mg/dL (7-18); CALCIUM 7.5 mg/dL (8.5-10.1); CREATININE 3.5 mg/dL (0.55-1.3); POTASSIUM 5.9 mmol/L (3.5-5.1); TOT PROT 6.8 g/dl (6.4-8.2)
[2019-10-12] MEDS ORDERED: SODIUM ZIRCONIUM CYCLOSILICATE (LOKELMA) 5 GM PACKET PO ONE (09:00)
[2019-10-12] MEDS ORDERED: PT OWN MED DRAWER 7, Y5N ONE ×2 (09:10→15:04)
[2019-10-12] MEDS: FUROSEMIDE 40 MG/4 ML INJECTABLE VIAL IVPUSH SCH (09:20)
[2019-10-12] MEDS: ESCITALOPRAM OXALATE 10 MG TABLET (FP) PO SCH (09:21)
[2019-10-12] MEDS: valACYclovir HCL 500 MG TABLET (FP) PO SCH (09:21)
[2019-10-12] MEDS: MIDODRINE HCL 5 MG TABLET PO SCH ×3 (09:21→17:48)
[2019-10-12] MEDS: AMIODARONE HCL 200 MG TABLET (FP) PO SCH ×2 (09:21→21:04)
[2019-10-12] MEDS: ASPIRIN COATED 81 MG TABLET.EC PO SCH (09:21)
[2019-10-12] MEDS: PANTOPRAZOLE 40 MG TABLET (FP) PO SCH (09:21)
[2019-10-12] MEDS: ALLOPURINOL 100 MG TABLET (FP) PO SCH (09:21)
[2019-10-12 10:31] LABS: ANISOCYTOSIS 2+; MACROCYTOSIS 1+; OVALOCYTE 1+; PLATELET ESTIMATE DECREASED; TARGET CELLS 2+
[2019-10-12] MEDS ORDERED: ALBUTEROL SO4 2.5/IPRATROPIUM 0.5 INH SOL 3 ML VIAL.NEB. NEB ONE (11:13)
[2019-10-12] MEDS ORDERED: SODIUM BICARBONATE 8.4% 50 MEQ/50 ML DISP.SYRIN IVPUSH ONE (11:26)
[2019-10-12] MEDS ORDERED: INSULIN REGULAR HUMAN 100 UNITS/ML *VIAL IVPUSH ONE (11:29)
[2019-10-12] MEDS ORDERED: DEXTROSE 50%-WATER 25 GM/50 ML DISP.SYRIN ONE (11:29)
[2019-10-12] MEDS ORDERED: DEXTROSE 50%-WATER - 25 GM/50 ML VIAL IVPUSH ONE (11:30)
[2019-10-12] MEDS ORDERED: INSULIN REGULAR HUMAN 100 UNITS/ML *VIAL SQ ONE (11:30)
[2019-10-12] MEDS ORDERED: CALCIUM GLUCONATE 10% - 1,000 MG/10 ML VIAL IVPUSH ONE (11:30)
[2019-10-12] MEDS ORDERED: SODIUM BICARBONATE 8.4% 50 MEQ/50 ML VIAL ONE (11:42)
--- NOTE | 2019-10-12 11:46 | PN ---
Progress Note, Physician History of Present Illness: 74 year old black female with PMH HTN, HLD, CAD s/p coronary artery stenting, GERD, multiple myeloma (chemo; radiation directed at abdomen), ? "mild" systolic CHF, on Lasix, rectal hemorrhoids, now presented to ED for diarrhea x2 days associated with generalized weakness, ROGERS. Pt reported she has had loose, watery diarrhea x2 days, and prior to that he had rectal bleeding x2 days (on toilet paper and mixed in stool) that self resolved. She reported she only noticed the bleeding because it was on the toilet paper, as she did not have abdominal or rectal pain. Pt reported generalized weakness and ROGERS, which prompted her to come to the ED. Pt denied nausea, vomiting, fever, abdominal pain, chest pain, increased LE swelling. She reported she believed her lower extremity swelling is actually improving. She also reported noticing a new "rash " to her right hip since last week. - Current Medication List Current Medications: Active Medications Acetaminophen (Tylenol -) 650 mg PO Q6H PRN PRN Reason: FEVER Last Admin: 10/07/19 21:49 Dose: 650 mg Albumin Human (Albumin Human 25% -) 25 gm IVPB Q30M [facility] Stop: 10/12/19 18:31 Allopurinol (Zyloprim -) 100 mg PO DAILY [facility] Last Admin: 10/12/19 09:21 Dose: 100 mg Amiodarone HCl (Cordarone -) 200 mg PO BID [facility] Last Admin: 10/12/19 09:21 Dose: 200 mg Aspirin (Ecotrin -) 81 mg PO DAILY [facility] Last Admin: 10/12/19 09:21 Dose: 81 mg Atorvastatin Calcium (Lipitor -) 40 mg PO HS [facility] Last Admin: 10/11/19 21:57 Dose: 40 mg Escitalopram Oxalate (Lexapro -) 10 mg PO DAILY [facility] Last Admin: 10/12/19 09:21 Dose: 10 mg Hydrocortisone Sodium Succinate (Solu-Cortef -) 50 mg IVPB Q6H-IV [facility] Last Admin: 10/12/19 09:20 Dose: 50 mg Norepinephrine Bitartrate 8, (000 mcg/ Sodium Chloride) 500 mls @ 18.75 mls/hr IV TITR [facility]; Protocol Last Titration: 10/11/19 17:24 Dose: 1 mcg/min, 3.75 mls/hr Furosemide 100 mg/ Sodium (Chloride) 50 mls @ 5 mls/hr IVPB TITR [facility]; Protocol Ipratropium [place] (Atrovent 0.02% Nebulizer -) 1 amp NEB RQID PRN PRN Reason: Dyspnea Last Admin: 10/11/19 21:23 Dose: 1 amp Levothyroxine Sodium (Synthroid -) 75 mcg PO DAILY@0700 [facility] Last Admin: 10/12/19 06:14 Dose: 75 mcg Midodrine (Proamatine -) 10 mg PO TID-MID [facility] Last Admin: 10/12/19 09:21 Dose: 10 mg Nystatin (Nystatin) 500,000 unit PO TID [facility] Stop: 10/12/19 22:00 Last Admin: 10/12/19 05:18 Dose: 500,000 unit Pantoprazole Sodium (Protonix -) 40 mg PO DAILY [facility] Last Admin: 10/12/19 09:21 Dose: 40 mg Valacyclovir HCl (Valtrex -) 500 mg PO DAILY [facility] Last Admin: 10/12/19 09:21 Dose: 500 mg - Objective Vital Signs: Vital Signs Temperature 97.3 F L 10/12/19 10:51 Pulse Rate 80 10/12/19 10:51 Respiratory Rate 20 10/12/19 10:51 Blood Pressure 95/57 L 10/12/19 10:51 O2 Sat by Pulse Oximetry (%) 96 10/12/19 10:00 Eyes: Yes: WNL, Conjunctiva Clear, EOM Intact HENT: Yes: WNL, Atraumatic, Normocephalic Neck: Yes: WNL, Supple, Trachea Midline Cardiovascular: Yes: WNL, Regular Rate and Rhythm Respiratory: Yes: Diminished Gastrointestinal: Yes: WNL, Normal Bowel Sounds Genitourinary: Yes: WNL Musculoskeletal: Yes: WNL Extremities: Yes: WNL Edema: Yes Integumentary: Yes: WNL Neurological: Yes: WNL, Alert, Oriented ...Motor Strength: WNL Psychiatric: Yes: WNL Labs: CBC, BMP 10/12/19 05:40 10/12/19 05:40 INR, PTT INR 0.99 (0.83-1.09) 10/07/19 02:55 Assessment/Plan - Problems (1) Weakness Code(s): R53.1 - WEAKNESS (2) ASHD (arteriosclerotic heart disease) Code(s): I25.10 - ATHSCL HEART DISEASE OF [place] CORONARY ARTERY W/O ANG PCTRS (3) Acute on chronic systolic CHF (congestive heart failure) Assessment/Plan: Now off milrinone. Tapering off norepinephrine. On amiodarone: change to PO. IV heparin discontinued (decreasing TNI; GI bleed-->PRBCs). Code(s): I50.23 - ACUTE ON CHRONIC SYSTOLIC (CONGESTIVE) HEART FAILURE (4) Adult onset hypothyroidism Assessment/Plan: mildly elevated TSH; normal Free T4 in ICU setting. Code(s): E03.8 - OTHER SPECIFIED HYPOTHYROIDISM (5) Anxiety Code(s): F41.9 - ANXIETY DISORDER, UNSPECIFIED (6) Elevated troponin Code(s): R74.8 - ABNORMAL LEVELS OF OTHER SERUM ENZYMES (7) HLD (hyperlipidemia) Assessment/Plan: On statin (increase dose to 80 mg daily atorvastatin in setting of CT; LDL 107 mg/dl). 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 Code(s): C90.00 - MULTIPLE MYELOMA NOT HAVING ACHIEVED REMISSION Qualifiers: Multiple myeloma remission status: not in remission Qualified Code(s): C90.00 - Multiple myeloma not having achieved remission (10) Pancytopenia Code(s): D61.818 - OTHER PANCYTOPENIA (11) NSTEMI (non-ST elevated myocardial infarction) Assessment/Plan: see under "Acute Systolic CHF". Code(s): I21.4 - NON-ST ELEVATION (NSTEMI) MYOCARDIAL INFARCTION (12) Acute renal insufficiency Code(s): N28.9 - DISORDER OF KIDNEY AND URETER, UNSPECIFIED (13) Hypoalbuminemia Code(s): E88.09 - OTH DISORDERS OF PLASMA-PROTEIN METABOLISM, NEC (14) Hyperkalemia Assessment/Plan: 5.5--5.7; f/u EKG, and treat if significant changes. Code(s): E87.5 - HYPERKALEMIA CCU juan spent: 36 minutes.
--- NOTE | 2019-10-12 11:51 | EKG ---
Test Reason : Blood Pressure : / mmHG Vent. Rate : 084 BPM Atrial Rate : 084 BPM P-R Int : 148 ms QRS Dur : 142 ms QT Int : 406 ms P-R-T Axes : 033 -33 163 degrees QTc Int : 479 ms NORMAL SINUS RHYTHM LEFT AXIS DEVIATION NON-SPECIFIC INTRA-VENTRICULAR CONDUCTION BLOCK CANNOT RULE OUT ANTERIOR INFARCT , AGE UNDETERMINED T WAVE ABNORMALITY, CONSIDER INFEROLATERAL ISCHEMIA ABNORMAL ECG WHEN COMPARED WITH ECG OF 11-OCT-2019 10:23, SINUS RHYTHM HAS REPLACED WIDE QRS RHYTHM Confirmed by CINDY PALMER, MELISSA ([id number]) on 10/12/2019 11:51:18 AM Referred By: BASSEM FELIX Confirmed By:MELISSA WHITE MD
[2019-10-12] MEDS: IPRATROPIUM BR 0.02% 0.5 MG/2.5 ML VIAL.NEB. NEB PRN (11:53)
--- NOTE | 2019-10-12 12:15 | PN ---
Teaching Attending Note Name of Resident: Roger Herr ATTENDING PHYSICIAN STATEMENT I saw and evaluated the patient. I reviewed the resident's note and discussed the case with the resident. I agree with the resident's findings and plan as documented. SUBJECTIVE: Pt seen and examined in the ICU. Remains on HFOT, more tachypneic today. Remains on low dose levophed gtt. CXR with increasing congestion. OBJECTIVE: Vital Signs Period Temp Pulse Resp BP Sys/Moss Pulse Ox Last 24 Hr 97.2 F-97.5 F 75-102 19-29 91-136/52-91 96-98 Intake & Output 10/09/19 10/10/19 10/11/19 10/12/19 23:59 23:59 23:59 23:59 Intake Total 1925 2191.2 411.0 111 Output Total 200 110 100 20 Balance 1725 2081.2 311.0 91 Weight 76.249 kg 78.5 kg 79.878 kg 80.513 kg Gen: tachypneic on HFOT Heart: RRR Lung: scattered rhonchi Abd: soft, nontender Ext: no edema CBC, BMP 10/12/19 05:40 10/12/19 05:40 Active Medications Acetaminophen (Tylenol -) 650 mg PO Q6H PRN PRN Reason: FEVER Last Admin: 10/07/19 21:49 Dose: 650 mg Albumin Human (Albumin Human 25% -) 25 gm IVPB Q30M [facility] Stop: 10/12/19 18:31 Allopurinol (Zyloprim -) 100 mg PO DAILY [facility] Last Admin: 10/12/19 09:21 Dose: 100 mg Amiodarone HCl (Cordarone -) 200 mg PO BID [facility] Last Admin: 10/12/19 09:21 Dose: 200 mg Aspirin (Ecotrin -) 81 mg PO DAILY [facility] Last Admin: 10/12/19 09:21 Dose: 81 mg Atorvastatin Calcium (Lipitor -) 40 mg PO HS [facility] Last Admin: 10/11/19 21:57 Dose: 40 mg Escitalopram Oxalate (Lexapro -) 10 mg PO DAILY [facility] Last Admin: 10/12/19 09:21 Dose: 10 mg Hydrocortisone Sodium Succinate (Solu-Cortef -) 50 mg IVPB Q6H-IV [facility] Last Admin: 10/12/19 09:20 Dose: 50 mg Norepinephrine Bitartrate 8, (000 mcg/ Sodium Chloride) 500 mls @ 18.75 mls/hr IV TITR [facility]; Protocol Last Titration: 10/11/19 17:24 Dose: 1 mcg/min, 3.75 mls/hr Furosemide 100 mg/ Sodium (Chloride) 50 mls @ 5 mls/hr IVPB TITR [facility]; Protocol Ipratropium [place] (Atrovent 0.02% Nebulizer -) 1 amp NEB RQID PRN PRN Reason: Dyspnea Last Admin: 10/12/19 11:53 Dose: 1 amp Levothyroxine Sodium (Synthroid -) 75 mcg PO DAILY@0700 [facility] Last Admin: 10/12/19 06:14 Dose: 75 mcg Midodrine (Proamatine -) 10 mg PO TID-MID [facility] Last Admin: 10/12/19 09:21 Dose: 10 mg Nystatin (Nystatin) 500,000 unit PO TID [facility] Stop: 10/12/19 22:00 Last Admin: 10/12/19 05:18 Dose: 500,000 unit Pantoprazole Sodium (Protonix -) 40 mg PO DAILY [facility] Last Admin: 10/12/19 09:21 Dose: 40 mg Valacyclovir HCl (Valtrex -) 500 mg PO DAILY [facility] Last Admin: 10/12/19 09:21 Dose: 500 mg ASSESSMENT AND PLAN: Acute on Chronic Systolic Heart Failure Cardiogenic Shock Acute on Chronic Renal Failure CAD Acute NSTEMI Paroxysmal Atrial Fibrillation Pneumonia Asthma Multiple Myeloma HTN Hyperlipidemia Hypothyroidism Anemia Hyponatremia - taper off levophed gtt - lasix gtt per renal - monitor urine output, creatinine - daily weights - amiodarone - monitor H/H - completed antibiotics - O2 to keep SpO2 >90% - inhaled bronchodilators as needed - DVT prophylaxis - continue ICU monitoring - poor overall prognosis, continue discussions regarding goals of care critical care time spent in reviewing chart, evaluating patient and formulating plan 35 min
--- NOTE | 2019-10-12 13:48 | PN ---
Progress Note, Physician History of Present Illness: continues to need support still resp sissues and pressors on high flow - Current Medication List Current Medications: Active Medications Acetaminophen (Tylenol -) 650 mg PO Q6H PRN PRN Reason: FEVER Last Admin: 10/07/19 21:49 Dose: 650 mg Allopurinol (Zyloprim -) 100 mg PO DAILY [facility] Last Admin: 10/12/19 09:21 Dose: 100 mg Amiodarone HCl (Cordarone -) 200 mg PO BID [facility] Last Admin: 10/12/19 09:21 Dose: 200 mg Aspirin (Ecotrin -) 81 mg PO DAILY [facility] Last Admin: 10/12/19 09:21 Dose: 81 mg Atorvastatin Calcium (Lipitor -) 40 mg PO HS [facility] Last Admin: 10/11/19 21:57 Dose: 40 mg Escitalopram Oxalate (Lexapro -) 10 mg PO DAILY [facility] Last Admin: 10/12/19 09:21 Dose: 10 mg Hydrocortisone Sodium Succinate (Solu-Cortef -) 50 mg IVPB Q6H-IV [facility] Last Admin: 10/12/19 09:20 Dose: 50 mg Norepinephrine Bitartrate 8, (000 mcg/ Sodium Chloride) 500 mls @ 18.75 mls/hr IV TITR [facility]; Protocol Last Titration: 10/11/19 17:24 Dose: 1 mcg/min, 3.75 mls/hr Furosemide 100 mg/ Sodium (Chloride) 50 mls @ 5 mls/hr IVPB TITR [facility]; Protocol Ipratropium [place] (Atrovent 0.02% Nebulizer -) 1 amp NEB RQID PRN PRN Reason: Dyspnea Last Admin: 10/12/19 11:53 Dose: 1 amp Levothyroxine Sodium (Synthroid -) 75 mcg PO DAILY@0700 [facility] Last Admin: 10/12/19 06:14 Dose: 75 mcg Midodrine (Proamatine -) 10 mg PO TID-MID [facility] Last Admin: 10/12/19 09:21 Dose: 10 mg Nystatin (Nystatin) 500,000 unit PO TID [facility] Stop: 10/12/19 22:00 Last Admin: 10/12/19 05:18 Dose: 500,000 unit Pantoprazole Sodium (Protonix -) 40 mg PO DAILY [facility] Last Admin: 10/12/19 09:21 Dose: 40 mg Valacyclovir HCl (Valtrex -) 500 mg PO DAILY [facility] Last Admin: 10/12/19 09:21 Dose: 500 mg - Objective Vital Signs: Vital Signs Temperature 97.3 F L 10/12/19 10:51 Pulse Rate 78 10/12/19 12:00 Respiratory Rate 20 10/12/19 12:00 Blood Pressure 110/56 L 10/12/19 12:00 O2 Sat by Pulse Oximetry (%) 96 10/12/19 10:00 Constitutional: Yes: No Distress, Calm Cardiovascular: Yes: S1, S2 Respiratory: Yes: Regular, Other (on high flow) Gastrointestinal: Yes: Normal Bowel Sounds, Soft Musculoskeletal: Yes: WNL Extremities: Yes: WNL Neurological: Yes: Alert, Oriented Psychiatric: Yes: Alert, Oriented Labs: CBC, BMP 10/12/19 05:40 10/12/19 05:40 INR, PTT INR 0.99 (0.83-1.09) 10/07/19 02:55 Assessment/Plan Problem List - Problems (1) Anasarca Code(s): R60.1 - GENERALIZED EDEMA (2) Fluid overload Code(s): E87.70 - FLUID OVERLOAD, UNSPECIFIED (3) Hypoxia Code(s): R09.02 - HYPOXEMIA (4) Weakness Code(s): R53.1 - WEAKNESS (5) ASHD (arteriosclerotic heart disease) Code(s): I25.10 - ATHSCL HEART DISEASE OF [place] CORONARY ARTERY W/O ANG PCTRS (6) Acute exacerbation of CHF (congestive heart failure) Code(s): I50.9 - HEART FAILURE, UNSPECIFIED (7) Acute on chronic systolic CHF (congestive heart failure) Code(s): I50.23 - ACUTE ON CHRONIC SYSTOLIC (CONGESTIVE) HEART FAILURE (8) Adult onset hypothyroidism Code(s): E03.8 - OTHER SPECIFIED HYPOTHYROIDISM (9) Anemia Code(s): D64.9 - ANEMIA, UNSPECIFIED (10) CKD (chronic kidney disease) Code(s): N18.9 - CHRONIC KIDNEY DISEASE, UNSPECIFIED (11) Elevated troponin Code(s): R74.8 - ABNORMAL LEVELS OF OTHER SERUM ENZYMES (12) HLD (hyperlipidemia) Code(s): E78.5 - HYPERLIPIDEMIA, UNSPECIFIED Qualifiers: Hyperlipidemia type: unspecified Qualified Code(s): E78.5 - Hyperlipidemia , unspecified (13) HTN (hypertension) Code(s): I10 - ESSENTIAL (PRIMARY) HYPERTENSION Qualifiers: Hypertension type: unspecified Qualified Code(s): I10 - Essential (primary ) hypertension (14) History of heart artery stent Code(s): Z95.5 - PRESENCE OF CORONARY ANGIOPLASTY IMPLANT AND GRAFT (15) Multiple myeloma Code(s): C90.00 - MULTIPLE MYELOMA NOT HAVING ACHIEVED REMISSION Qualifiers: Multiple myeloma remission status: not in remission Qualified Code(s): C90.00 - Multiple myeloma not having achieved remission uti hypotension Assessment/Plan continue current mgmt monitor per resp support close watch will hold off on abx rest as per icu cc 40 min
[2019-10-12] MEDS ORDERED: FUROSEMIDE 40 MG/4 ML INJECTABLE VIAL IVPUSH SCH (14:00)
--- NOTE | 2019-10-12 14:08 | PN ---
Progress Note, Physician History of Present Illness: Pt seen and examined at bedside. She is awake and appears fatigued. She denies chest pain. SHe remains on pressors. - Current Medication List Current Medications: Active Medications Acetaminophen (Tylenol -) 650 mg PO Q6H PRN PRN Reason: FEVER Last Admin: 10/07/19 21:49 Dose: 650 mg Allopurinol (Zyloprim -) 100 mg PO DAILY [facility] Last Admin: 10/12/19 09:21 Dose: 100 mg Amiodarone HCl (Cordarone -) 200 mg PO BID [facility] Last Admin: 10/12/19 09:21 Dose: 200 mg Aspirin (Ecotrin -) 81 mg PO DAILY [facility] Last Admin: 10/12/19 09:21 Dose: 81 mg Atorvastatin Calcium (Lipitor -) 40 mg PO HS [facility] Last Admin: 10/11/19 21:57 Dose: 40 mg Escitalopram Oxalate (Lexapro -) 10 mg PO DAILY [facility] Last Admin: 10/12/19 09:21 Dose: 10 mg Hydrocortisone Sodium Succinate (Solu-Cortef -) 50 mg IVPB Q6H-IV [facility] Last Admin: 10/12/19 09:20 Dose: 50 mg Norepinephrine Bitartrate 8, (000 mcg/ Sodium Chloride) 500 mls @ 18.75 mls/hr IV TITR [facility]; Protocol Last Titration: 10/11/19 17:24 Dose: 1 mcg/min, 3.75 mls/hr Furosemide 100 mg/ Sodium (Chloride) 50 mls @ 5 mls/hr IVPB TITR [facility]; Protocol Ipratropium [place] (Atrovent 0.02% Nebulizer -) 1 amp NEB RQID PRN PRN Reason: Dyspnea Last Admin: 10/12/19 11:53 Dose: 1 amp Levothyroxine Sodium (Synthroid -) 75 mcg PO DAILY@0700 [facility] Last Admin: 10/12/19 06:14 Dose: 75 mcg Midodrine (Proamatine -) 10 mg PO TID-MID [facility] Last Admin: 10/12/19 13:53 Dose: 10 mg Nystatin (Nystatin) 500,000 unit PO TID [facility] Stop: 10/12/19 22:00 Last Admin: 10/12/19 13:53 Dose: 500,000 unit Pantoprazole Sodium (Protonix -) 40 mg PO DAILY [facility] Last Admin: 10/12/19 09:21 Dose: 40 mg Valacyclovir HCl (Valtrex -) 500 mg PO DAILY [facility] Last Admin: 10/12/19 09:21 Dose: 500 mg - Objective Vital Signs: Vital Signs Temperature 97.3 F L 10/12/19 10:51 Pulse Rate 78 10/12/19 12:00 Respiratory Rate 20 10/12/19 12:00 Blood Pressure 110/56 L 10/12/19 12:00 O2 Sat by Pulse Oximetry (%) 96 10/12/19 10:00 Constitutional: Yes: Calm Eyes: Yes: Conjunctiva Clear HENT: Yes: Atraumatic Cardiovascular: Yes: S1, S2 Respiratory: Yes: On Nasal O2 Gastrointestinal: Yes: Soft Genitourinary: Yes: [place] Present Edema: Yes Neurological: Yes: Oriented Psychiatric: Yes: Oriented Labs: CBC, BMP 10/12/19 05:40 10/12/19 05:40 INR, PTT INR 0.99 (0.83-1.09) 10/07/19 02:55 Problem List - Problems (1) Fluid overload Code(s): E87.70 - FLUID OVERLOAD, UNSPECIFIED (2) CKD (chronic kidney disease) Code(s): N18.9 - CHRONIC KIDNEY DISEASE, UNSPECIFIED Assessment/Plan Current Medications Generic Name Dose Route Start Last Admin Trade Name [place] PRN Reason Stop Dose Admin Acetaminophen 650 mg 09/20/19 22:25 10/07/19 21:49 Tylenol - PO 650 mg Q6H PRN Administration FEVER Allopurinol 100 mg 10/10/19 13:49 10/12/19 09:21 Zyloprim - PO 100 mg DAILY [facility] Administration Amiodarone HCl 200 mg 10/11/19 12:54 10/12/19 09:21 Cordarone - PO 200 mg BID [facility] Administration Aspirin 81 mg 09/25/19 10:00 10/12/19 09:21 Ecotrin - PO 81 mg DAILY [facility] Administration Atorvastatin Calcium 40 mg 09/20/19 22:00 10/11/19 21:57 Lipitor - PO 40 mg HS [facility] Administration Escitalopram Oxalate 10 mg 09/21/19 10:00 10/12/19 09:21 Lexapro - PO 10 mg DAILY [facility] Administration Hydrocortisone Sodium Succinate 50 mg 10/07/19 16:00 10/12/19 09:20 Solu-Cortef - IVPB 50 mg Q6H-IV [facility] Administration Norepinephrine Bitartrate 8, 500 mls @ 18.75 mls/hr 10/11/19 11:00 10/11/19 17:24 000 mcg/ Sodium Chloride IV 1 mcg/min TITR [facility] 3.75 mls/hr Titration Protocol 5 MCG/MIN Furosemide 100 mg/ Sodium 50 mls @ 5 mls/hr 10/12/19 11:30 Chloride IVPB TITR [facility] Protocol 10 MG/HR Ipratropium [place] 1 amp 10/06/19 22:27 10/12/19 11:53 Atrovent 0.02% Nebulizer - NEB 1 amp RQID PRN Administration Dyspnea Levothyroxine Sodium 75 mcg 09/21/19 07:00 10/12/19 06:14 Synthroid - PO 75 mcg DAILY@0700 [facility] Administration Midodrine 10 mg 10/06/19 18:00 10/12/19 13:53 Proamatine - PO 10 mg TID-MID [facility] Administration Nystatin 500,000 unit 10/07/19 22:00 10/12/19 13:53 Nystatin PO 10/12/19 22:00 500,000 unit TID [facility] Administration Pantoprazole Sodium 40 mg 09/21/19 10:00 10/12/19 09:21 Protonix - PO 40 mg DAILY [facility] Administration Valacyclovir HCl 500 mg 09/21/19 10:00 10/12/19 09:21 Valtrex - PO 500 mg DAILY [facility] Administration Impression 1. proteinuria 2. multiple myeloma 3. amyloid 4. dizziness 5. hypotension 6. HLD 7. hypothyroidism 8. anemia 9. CKD 10. fluid overload 11. hypotension 12. hyperkalemia 13. nstemi 14. DEBBIE Plan - start lasix drip - monitor bp - cont pressors - discussed dialysis options with pt and she would like to try medical therapy first - treat potassium medically and repeat labs - discussed with ICU team - prognosis is poor
[2019-10-12] MEDS: NOREPINEPHRINE BITARTRATE 8,000 MCG in SODIUM CHLORIDE 492 ML IV SCH (15:07)
[2019-10-12] MEDS: FUROSEMIDE INJECTION 100 MG in SODIUM CHLORIDE 40 ML IVPB SCH (15:08)
[2019-10-12 16:24] LABS: CALCIUM 7.7 mg/dL (8.5-10.1); CREATININE 3.7 mg/dL (0.55-1.3); POTASSIUM 5.7 mmol/L (3.5-5.1)
[2019-10-12] MEDS ORDERED: ALBUMIN HUMAN 25% 100 ML VIAL IVPB SCH (17:00)
--- NOTE | 2019-10-12 19:35 | PN ---
Progress Note (short form) - Note Progress Note: Patient seen and examined Chart reviewed Multiple critical problems Acute/chronic systolic CHF Acute/Chronic kidney disease NSTEMI Fluid overloade Cardiogeinic shock Anemia Multiple myeloma Amyloid Hyperkalemia Electrolyte abnormalities Last Vital Signs Temp Pulse Resp BP Pulse Ox 98 F 80 22 H 95/58 L 93 L 10/12/19 18:00 10/12/19 18:26 10/12/19 18:00 10/12/19 18:26 10/12/19 15:53 On rebreather Regular rhythm Decreased breath sounds /poor inspiratory effort Soft abdomen LE edema CBC, BMP 10/12/19 05:40 10/12/19 15:30 Current Medications Generic Name Dose Route Start Last Admin Trade Name Freq PRN Reason Stop Dose Admin Acetaminophen 650 mg 09/20/19 22:25 10/07/19 21:49 Tylenol - PO 650 mg Q6H PRN Administration FEVER Allopurinol 100 mg 10/10/19 13:49 10/12/19 09:21 Zyloprim - PO 100 mg DAILY [facility] Administration Amiodarone HCl 200 mg 10/11/19 12:54 10/12/19 09:21 Cordarone - PO 200 mg BID [facility] Administration Aspirin 81 mg 09/25/19 10:00 10/12/19 09:21 Ecotrin - PO 81 mg DAILY [facility] Administration Atorvastatin Calcium 40 mg 09/20/19 22:00 10/11/19 21:57 Lipitor - PO 40 mg HS [facility] Administration Escitalopram Oxalate 10 mg 09/21/19 10:00 10/12/19 09:21 Lexapro - PO 10 mg DAILY [facility] Administration Hydrocortisone Sodium Succinate 50 mg 10/07/19 16:00 10/12/19 14:23 Solu-Cortef - IVPB 50 mg Q6H-IV [facility] Administration Norepinephrine Bitartrate 8, 500 mls @ 18.75 mls/hr 10/11/19 11:00 10/12/19 18:26 000 mcg/ Sodium Chloride IV 0.5 mcg/min TITR [facility] 1.87 mls/hr Titration Protocol 5 MCG/MIN Furosemide 100 mg/ Sodium 50 mls @ 5 mls/hr 10/12/19 11:30 10/12/19 15:08 Chloride IVPB 10 mg/hr TITR [facility] 5 mls/hr Administration Protocol 10 MG/HR Ipratropium [place] 1 amp 10/06/19 22:27 10/12/19 11:53 Atrovent 0.02% Nebulizer - NEB 1 amp RQID PRN Administration Dyspnea Levothyroxine Sodium 75 mcg 09/21/19 07:00 10/12/19 06:14 Synthroid - PO 75 mcg DAILY@0700 [facility] Administration Midodrine 10 mg 10/06/19 18:00 10/12/19 17:48 Proamatine - PO 10 mg TID-MID [facility] Administration Nystatin 500,000 unit 10/07/19 22:00 10/12/19 13:53 Nystatin PO 10/12/19 22:00 500,000 unit TID [facility] Administration Pantoprazole Sodium 40 mg 09/21/19 10:00 10/12/19 09:21 Protonix - PO 40 mg DAILY [facility] Administration Valacyclovir HCl 500 mg 09/21/19 10:00 10/12/19 09:21 Valtrex - PO 500 mg DAILY [facility] Administration Little to add Management per critical care team Unfortunate guarded prognosis
[2019-10-12] MEDS: ATORVASTATIN CA 40 MG TABLET (FP) PO SCH (21:04)
--- NOTE | 2019-10-12 23:22 | PN ---
Progress Note, Physician - Current Medication List Current Medications: Active Medications Acetaminophen (Tylenol -) 650 mg PO Q6H PRN PRN Reason: FEVER Last Admin: 10/07/19 21:49 Dose: 650 mg Allopurinol (Zyloprim -) 100 mg PO DAILY [facility] Last Admin: 10/12/19 09:21 Dose: 100 mg Amiodarone HCl (Cordarone -) 200 mg PO BID [facility] Last Admin: 10/12/19 21:04 Dose: 200 mg Aspirin (Ecotrin -) 81 mg PO DAILY [facility] Last Admin: 10/12/19 09:21 Dose: 81 mg Atorvastatin Calcium (Lipitor -) 40 mg PO HS [facility] Last Admin: 10/12/19 21:04 Dose: 40 mg Escitalopram Oxalate (Lexapro -) 10 mg PO DAILY [facility] Last Admin: 10/12/19 09:21 Dose: 10 mg Hydrocortisone Sodium Succinate (Solu-Cortef -) 50 mg IVPB Q6H-IV [facility] Last Admin: 10/12/19 21:06 Dose: 50 mg Norepinephrine Bitartrate 8, (000 mcg/ Sodium Chloride) 500 mls @ 18.75 mls/hr IV TITR [facility]; Protocol Last Titration: 10/12/19 18:26 Dose: 0.5 mcg/min, 1.87 mls/hr Furosemide 100 mg/ Sodium (Chloride) 50 mls @ 5 mls/hr IVPB TITR [facility]; Protocol Last Admin: 10/12/19 15:08 Dose: 10 mg/hr, 5 mls/hr Ipratropium [place] (Atrovent 0.02% Nebulizer -) 1 amp NEB RQID PRN PRN Reason: Dyspnea Last Admin: 10/12/19 11:53 Dose: 1 amp Levothyroxine Sodium (Synthroid -) 75 mcg PO DAILY@0700 [facility] Last Admin: 10/12/19 06:14 Dose: 75 mcg Midodrine (Proamatine -) 10 mg PO TID-MID [facility] Last Admin: 10/12/19 17:48 Dose: 10 mg Pantoprazole Sodium (Protonix -) 40 mg PO DAILY [facility] Last Admin: 10/12/19 09:21 Dose: 40 mg Valacyclovir HCl (Valtrex -) 500 mg PO DAILY [facility] Last Admin: 10/12/19 09:21 Dose: 500 mg - Objective Vital Signs: Vital Signs Temperature 98 F 10/12/19 18:00 Pulse Rate 80 10/12/19 18:26 Respiratory Rate 22 H 10/12/19 18:00 Blood Pressure 95/58 L 10/12/19 18:26 O2 Sat by Pulse Oximetry (%) 97 10/12/19 20:35 Labs: CBC, BMP 10/12/19 05:40 10/12/19 15:30 INR, PTT INR 0.99 (0.83-1.09) 10/07/19 02:55 Problem List - Problems (1) Elevated troponin Code(s): R74.8 - ABNORMAL LEVELS OF OTHER SERUM ENZYMES (2) Acute on chronic systolic CHF (congestive heart failure) Code(s): I50.23 - ACUTE ON CHRONIC SYSTOLIC (CONGESTIVE) HEART FAILURE (3) Multiple myeloma Code(s): C90.00 - MULTIPLE MYELOMA NOT HAVING ACHIEVED REMISSION Qualifiers: Multiple myeloma remission status: not in remission Qualified Code(s): C90.00 - Multiple myeloma not having achieved remission (4) HLD (hyperlipidemia) Code(s): E78.5 - HYPERLIPIDEMIA, UNSPECIFIED Qualifiers: Hyperlipidemia type: unspecified Qualified Code(s): E78.5 - Hyperlipidemia , unspecified (5) Hypothyroidism Code(s): E03.9 - HYPOTHYROIDISM, UNSPECIFIED Qualifiers: Hypothyroidism type: acquired Qualified Code(s): E03.9 - Hypothyroidism, unspecified (6) CAD (coronary artery disease) Code(s): I25.10 - ATHSCL HEART DISEASE OF [place] CORONARY ARTERY W/O ANG PCTRS Qualifiers: (7) Depression Code(s): F32.9 - MAJOR DEPRESSIVE DISORDER, SINGLE EPISODE, UNSPECIFIED (8) History of heart artery stent Code(s): Z95.5 - PRESENCE OF CORONARY ANGIOPLASTY IMPLANT AND GRAFT (9) Diarrhea Code(s): R19.7 - DI[place]HE[place], UNSPECIFIED Qualifiers: Diarrhea type: unspecified type Qualified Code(s): R19.7 - Diarrhea, unspecified (10) UTI (urinary tract infection) Code(s): N39.0 - URINARY TRACT INFECTION, SITE NOT SPECIFIED
[2019-10-13] MEDS: HYDROCORTISONE SOD SUCCINATE 100 MG/2 ML VIAL IVPB SCH ×4 (03:56→21:52)
[2019-10-13] MEDS: LEVOTHYROXINE NA 75 MCG TABLET (FP) PO SCH (06:39)
[2019-10-13 07:48] LABS: BASO % 0.3 % (0-2.0); HEMATOCRIT 23.4 % (32.4-45.2); MCHC 34.2 g/dl (32.0-36.0); MEAN CELL VOLUME 93.4 fl (80-96); MEAN PLT VOLUME 9.5 fl (7.5-11.1); MONO % 4.1 % (3.8-10.2); NEUT % 94.6 % (42.8-82.8); PLATELET COUNT 129 K/MM3 (134-434); RBC 2.51 M/mm3 (3.60-5.2); WHITE BLOOD COUNT 4.5 K/mm3 (4.0-10.0)
--- NOTE | 2019-10-13 08:10 | PN ---
Physical Exam: SUBJECTIVE: Patient seen and examined on AM rounds. No acute overnight events. Patient wanted to trial medical management with no HD yesterday, with poor prognosis. Requesting to speak with a band leader. Received lokelma in the evening. On Levo 0.5 overnight, now off all pressors with MAPs in the 70s. On attending rounds patient agrees to triple lumen catheter for possible HD tomorrow. Agrees to attempt HD and see if she is okay continuing vs stopping any time. OBJECTIVE: Vital Signs Period Temp Pulse Resp BP Sys/Moss Pulse Ox Last 24 Hr 97.3 F-98 F 72-84 13-22 93-110/53-65 93-97 GENERAL: AOx3, no acute distress, BiPAP in place HEAD: Normal with no signs of trauma, EOMI, dry MM, trachea midline LUNGS: On BiPAP 40%, clear with no wheezes, no crackles, no accessory muscle use HEART: RRR, S1, S2 without murmur, rub or gallop appreciated ABDOMEN: Soft, non-tender, non-distended, no guarding EXTREMITIES: 2+ edema B/L ankles , 2+ pulses, warm, SCDs in place NEUROLOGICAL: Normal speech, gait not observed SKIN: Warm, dry, no rashes observed Laboratory Results - last 24 hr 10/12/19 10/12/19 10/12/19 05:40 05:40 05:40 WBC 5.3 RBC 2.48 L Hgb 7.9 L Hct 23.0 L MCV 92.7 MCH 32.0 MCHC 34.5 RDW 18.2 H Plt Count 141 MPV 9.8 Absolute Neuts (auto) 5.0 Neutrophils % 93.4 H Neutrophils % (Manual) 91.4 H Band Neutrophils % 0.0 Lymphocytes % 1.8 L D Lymphocytes % (Manual) 2.9 L D Monocytes % 4.6 Monocytes % (Manual) 6 D Eosinophils % 0.0 Eosinophils % (Manual) 0.0 Basophils % 0.2 Basophils % (Manual) 0.0 Myelocytes % (Man) 0 Promyelocytes % (Man) 0 Blast Cells % (Manual) 0 Nucleated RBC % 1 H Metamyelocytes 0 Hypochromia 2+ Platelet Estimate Decreased Polychromasia 2+ Poikilocytosis 2+ Anisocytosis 2+ Microcytosis 2+ Macrocytosis 1+ Target Cells 2+ Ovalocytes 1+ PTT (Actin FS) 29.7 Sodium 123 L Potassium 5.9 H Chloride 88 L Carbon Dioxide 20 L Anion Gap 14 BUN 78.8 H Creatinine 3.5 H Est GFR (CKD-EPI)AfAm 14.03 Est GFR (CKD-EPI)NonAf 12.11 Random Glucose 82 Calcium 7.5 L Total Bilirubin 0.3 AST 82 H ALT 153 H Alkaline Phosphatase 90 Creatine Kinase 126 Troponin I 4.66 H* Total Protein 6.8 Albumin 1.6 L 10/12/19 10/13/19 10/13/19 15:30 05:30 05:30 WBC 4.5 RBC 2.51 L Hgb 8.0 L Hct 23.4 L MCV 93.4 MCH 32.0 MCHC 34.2 RDW 18.0 H Plt Count 129 L MPV 9.5 Absolute Neuts (auto) 4.2 Neutrophils % 94.6 H Neutrophils % (Manual) Band Neutrophils % Lymphocytes % 1.0 L D Lymphocytes % (Manual) Monocytes % 4.1 Monocytes % (Manual) Eosinophils % 0.0 Eosinophils % (Manual) Basophils % 0.3 Basophils % (Manual) Myelocytes % (Man) Promyelocytes % (Man) Blast Cells % (Manual) Nucleated RBC % 0 Metamyelocytes Hypochromia Platelet Estimate Polychromasia Poikilocytosis Anisocytosis Microcytosis Macrocytosis Target Cells Ovalocytes PTT (Actin FS) 32.4 Sodium 124 L Potassium 5.7 H Chloride 88 L Carbon Dioxide 21 Anion Gap 15 BUN 80.0 H Creatinine 3.7 H Est GFR (CKD-EPI)AfAm 13.12 Est GFR (CKD-EPI)NonAf 11.32 Random Glucose 90 Calcium 7.7 L Total Bilirubin AST ALT Alkaline Phosphatase Creatine Kinase Troponin I Total Protein Albumin Active Medications Generic Name Dose Route Start Last Admin Trade Name Freq PRN Reason Stop Dose Admin Acetaminophen 650 mg 09/20/19 22:25 10/07/19 21:49 Tylenol - PO 650 mg Q6H PRN Administration FEVER Allopurinol 100 mg 10/10/19 13:49 10/12/19 09:21 Zyloprim - PO 100 mg DAILY [facility] Administration Amiodarone HCl 200 mg 10/11/19 12:54 10/12/19 21:04 Cordarone - PO 200 mg BID [facility] Administration Aspirin 81 mg 09/25/19 10:00 10/12/19 09:21 Ecotrin - PO 81 mg DAILY [facility] Administration Atorvastatin Calcium 40 mg 09/20/19 22:00 10/12/19 21:04 Lipitor - PO 40 mg HS [facility] Administration Escitalopram Oxalate 10 mg 09/21/19 10:00 10/12/19 09:21 Lexapro - PO 10 mg DAILY [facility] Administration Hydrocortisone Sodium Succinate 50 mg 10/07/19 16:00 10/13/19 03:56 Solu-Cortef - IVPB 50 mg Q6H-IV [facility] Administration Norepinephrine Bitartrate 8, 500 mls @ 18.75 mls/hr 10/11/19 11:00 10/13/19 07:04 000 mcg/ Sodium Chloride IV 0 mcg/min TITR [facility] 0 mls/hr Titration Protocol 5 MCG/MIN Furosemide 100 mg/ Sodium 50 mls @ 5 mls/hr 10/12/19 11:30 10/12/19 15:08 Chloride IVPB 10 mg/hr TITR [facility] 5 mls/hr Administration Protocol 10 MG/HR Ipratropium [place] 1 amp 10/06/19 22:27 10/12/19 11:53 Atrovent 0.02% Nebulizer - NEB 1 amp RQID PRN Administration Dyspnea Levothyroxine Sodium 75 mcg 09/21/19 07:00 10/13/19 06:39 Synthroid - PO 75 mcg DAILY@0700 [facility] Administration Midodrine 10 mg 10/06/19 18:00 10/12/19 17:48 Proamatine - PO 10 mg TID-MID [facility] Administration Pantoprazole Sodium 40 mg 09/21/19 10:00 10/12/19 09:21 Protonix - PO 40 mg DAILY [facility] Administration Valacyclovir HCl 500 mg 09/21/19 10:00 10/12/19 09:21 Valtrex - PO 500 mg DAILY [facility] Administration ASSESSMENT/PLAN: 73 y/o/f with PMHx of multiple myeloma (currently on treatment), amyloidosis, chronic anemia, hypertension, hyperlipidemia, hypothyroidism, GERD, admitted for UGIB, renal failure, volume overload, transferred to the ICU for hypotension refractory to IVF boluses. #Neuro - AOx3, resumed Lexapro #Cardiovascular - Trops 5.4 -> 4.6, K+ again elevated today 5.9, EKG shows non specific V1-V3 changes - Cardiogenic shock: Norepi, Midodrine 10mg PO, Milrinone D/C MAP target 60-65. - Tachycardia: rate control with Amio 200mg BID, switched from 0.5 infusion - Continue home meds Aspirin 81mg, Atorvastatin 40mg - Hydrocortisone Q6H - Appreciate cardio recs #Pulm - CXR: unchanged from prior - Duonebs as needed - Currently on BiPAP at 40% FiO2 with O2Sat 99% - Lasix drip 10 units/HR, currently held #GI - Small bloody BM yesterday morning - FOBT ordered - GI (Dr. Perkins consulted) - Monitoring H&H #Renal - BUN/Cr: 39.8/0.8 -> 37.1/0.6 -> 37.1/0.7 -> 42.8/1.5 -> 50.4/1.8 -> 68.3/2.7 - Lasix drip - Renal function worsening, likely from hypotension - Monitor and replete lytes - Currently managing hyperkalemia with Ca 1g IV, Bicarb 8.4% 50mEQ, Insulin IV 7 units, Dextrose 1amp, Lokelma 10g - Nephro recs: Lasix drip, medical management of hyperkalemia - Patient agrees to triple lumen catheter placement #Heme/Onc - Multiple Myeloma: Continue Lokelma, Allopurinol decreased as per Nephro due to nephrotoxicity - Hg 8.2 -> 7.4 -> 6.9 -> 8.1 -> 7.5 -> 7.4 -> 8.2 -> 7.8 -> 7.9 -> 7.9 > 8.0 - 1xPRBC 10/10, s/p 1xPRBC 10/07 #ID - ID recs: Stop abx, was previously on Meropenem #Endo - Hx of hypothyroidism - Continue levothyroxine #FEN - Albumin 25gm - NPO pending GI recs #Prophylaxis - SCDs - Heparin D/Scotty 2/2 GIB #Dispo - DNR only, not DNI - Poor prognosis, requesting band leader - ICU monitoring Visit type - Emergency Visit Emergency Visit: Yes ED Registration Date: 09/20/19 Care time: The patient presented to the Emergency Department on the above date and was hospitalized for further evaluation of their emergent condition. - New Patient This patient is new to me today: No - Critical Care Critical Care patient: Yes Total Critical Care Time (in minutes): 36 Critical Care Statement: The care of this patient involved high complexity decision making to prevent further life threatening deterioration of the patient 's condition and/or to evaluate & treat vital organ system(s) failure or risk of failure. ATTENDING PHYSICIAN STATEMENT I saw and evaluated the patient. I reviewed the resident's note and discussed the case with the resident. I agree with the resident's findings and plan as documented. SUBJECTIVE: OBJECTIVE: ASSESSMENT AND PLAN:
[2019-10-13 08:14] LABS: ALBUMIN 1.5 g/dl (3.4-5.0); BILIRUBIN,TOTAL 0.4 mg/dL (0.2-1); BLOOD UREA NITROGEN 81.2 mg/dL (7-18); CALCIUM 7.6 mg/dL (8.5-10.1); CREATININE 3.8 mg/dL (0.55-1.3); MAGNESIUM 2.3 mg/dL (1.8-2.4); PHOSPHOROUS 7.7 mg/dL (2.5-4.9); POTASSIUM 5.6 mmol/L (3.5-5.1); TOT PROT 6.8 g/dl (6.4-8.2)
[2019-10-13] MEDS ORDERED: SODIUM ZIRCONIUM CYCLOSILICATE (LOKELMA) 5 GM PACKET PO ONE ×2 (08:43→18:38)
[2019-10-13] MEDS ORDERED: ALBUTEROL SO4 0.083% IH SOL 2.5 MG/3 ML VIAL.NEB. NEB ONE (08:44)
[2019-10-13] MEDS ORDERED: INSULIN REGULAR HUMAN 100 UNITS/ML *VIAL IVPUSH ONE (08:46)
[2019-10-13] MEDS ORDERED: CALCIUM GLUCONATE 10% - 1,000 MG/10 ML VIAL IVPUSH ONE (08:47)
[2019-10-13] MEDS ORDERED: DEXTROSE 50%-WATER - 25 GM/50 ML VIAL IVPUSH ONE (08:47)
[2019-10-13 09:08] LABS: ANISOCYTOSIS 1+; PLATELET ESTIMATE DECREASED
[2019-10-13] MEDS: ASPIRIN COATED 81 MG TABLET.EC PO SCH (09:33)
[2019-10-13] MEDS: AMIODARONE HCL 200 MG TABLET (FP) PO SCH ×2 (09:33→21:52)
[2019-10-13] MEDS: PANTOPRAZOLE 40 MG TABLET (FP) PO SCH (09:34)
[2019-10-13] MEDS: MIDODRINE HCL 5 MG TABLET PO SCH ×3 (09:34→17:44)
[2019-10-13] MEDS: ESCITALOPRAM OXALATE 10 MG TABLET (FP) PO SCH (09:34)
[2019-10-13] MEDS: ALLOPURINOL 100 MG TABLET (FP) PO SCH (09:35)
[2019-10-13] MEDS ORDERED: PT OWN MED DRAWER 7, Y5N ONE (09:39)
[2019-10-13] MEDS ORDERED: DEXTROSE 50%-WATER - 25 GM/50 ML VIAL ONE (09:39)
[2019-10-13] MEDS: valACYclovir HCL 500 MG TABLET (FP) PO SCH (10:40)
--- NOTE | 2019-10-13 11:14 | PN ---
Progress Note, Physician History of Present Illness: patient not able to tolerate nasal canula now on bipap confused - Current Medication List Current Medications: Active Medications Acetaminophen (Tylenol -) 650 mg PO Q6H PRN PRN Reason: FEVER Last Admin: 10/07/19 21:49 Dose: 650 mg Allopurinol (Zyloprim -) 100 mg PO DAILY [facility] Last Admin: 10/13/19 09:35 Dose: 100 mg Amiodarone HCl (Cordarone -) 200 mg PO BID [facility] Last Admin: 10/13/19 09:33 Dose: 200 mg Aspirin (Ecotrin -) 81 mg PO DAILY [facility] Last Admin: 10/13/19 09:33 Dose: 81 mg Atorvastatin Calcium (Lipitor -) 40 mg PO HS [facility] Last Admin: 10/12/19 21:04 Dose: 40 mg Escitalopram Oxalate (Lexapro -) 10 mg PO DAILY [facility] Last Admin: 10/13/19 09:34 Dose: 10 mg Hydrocortisone Sodium Succinate (Solu-Cortef -) 50 mg IVPB Q6H-IV [facility] Last Admin: 10/13/19 09:33 Dose: 50 mg Norepinephrine Bitartrate 8, (000 mcg/ Sodium Chloride) 500 mls @ 18.75 mls/hr IV TITR [facility]; Protocol Last Titration: 10/13/19 07:04 Dose: 0 mcg/min, 0 mls/hr Furosemide 100 mg/ Sodium (Chloride) 50 mls @ 5 mls/hr IVPB TITR [facility]; Protocol Last Admin: 10/12/19 15:08 Dose: 10 mg/hr, 5 mls/hr Ipratropium [place] (Atrovent 0.02% Nebulizer -) 1 amp NEB RQID PRN PRN Reason: Dyspnea Last Admin: 10/12/19 11:53 Dose: 1 amp Levothyroxine Sodium (Synthroid -) 75 mcg PO DAILY@0700 [facility] Last Admin: 10/13/19 06:39 Dose: 75 mcg Midodrine (Proamatine -) 10 mg PO TID-MID [facility] Last Admin: 10/13/19 09:34 Dose: 10 mg Pantoprazole Sodium (Protonix -) 40 mg PO DAILY [facility] Last Admin: 10/13/19 09:34 Dose: 40 mg Valacyclovir HCl (Valtrex -) 500 mg PO DAILY [facility] Last Admin: 10/13/19 10:40 Dose: 500 mg - Objective Vital Signs: Vital Signs Temperature 97.6 F 10/13/19 10:00 Pulse Rate 74 10/13/19 10:00 Respiratory Rate 14 10/13/19 10:00 Blood Pressure 96/62 10/13/19 10:00 O2 Sat by Pulse Oximetry (%) 100 10/13/19 08:34 Constitutional: Yes: No Distress, Calm Cardiovascular: Yes: S1, S2 Respiratory: Yes: On BiPap Gastrointestinal: Yes: Normal Bowel Sounds, Soft Musculoskeletal: Yes: WNL Extremities: Yes: WNL Neurological: Yes: Alert, Confusion Labs: CBC, BMP 10/13/19 05:30 10/13/19 05:30 INR, PTT INR 0.99 (0.83-1.09) 10/07/19 02:55 Assessment/Plan Problem List - Problems (1) Anasarca Code(s): R60.1 - GENERALIZED EDEMA (2) Fluid overload Code(s): E87.70 - FLUID OVERLOAD, UNSPECIFIED (3) Hypoxia Code(s): R09.02 - HYPOXEMIA (4) Weakness Code(s): R53.1 - WEAKNESS (5) ASHD (arteriosclerotic heart disease) Code(s): I25.10 - ATHSCL HEART DISEASE OF [place] CORONARY ARTERY W/O ANG PCTRS (6) Acute exacerbation of CHF (congestive heart failure) Code(s): I50.9 - HEART FAILURE, UNSPECIFIED (7) Acute on chronic systolic CHF (congestive heart failure) Code(s): I50.23 - ACUTE ON CHRONIC SYSTOLIC (CONGESTIVE) HEART FAILURE (8) Adult onset hypothyroidism Code(s): E03.8 - OTHER SPECIFIED HYPOTHYROIDISM (9) Anemia Code(s): D64.9 - ANEMIA, UNSPECIFIED (10) CKD (chronic kidney disease) Code(s): N18.9 - CHRONIC KIDNEY DISEASE, UNSPECIFIED (11) Elevated troponin Code(s): R74.8 - ABNORMAL LEVELS OF OTHER SERUM ENZYMES (12) HLD (hyperlipidemia) Code(s): E78.5 - HYPERLIPIDEMIA, UNSPECIFIED Qualifiers: Hyperlipidemia type: unspecified Qualified Code(s): E78.5 - Hyperlipidemia , unspecified (13) HTN (hypertension) Code(s): I10 - ESSENTIAL (PRIMARY) HYPERTENSION Qualifiers: Hypertension type: unspecified Qualified Code(s): I10 - Essential (primary ) hypertension (14) History of heart artery stent Code(s): Z95.5 - PRESENCE OF CORONARY ANGIOPLASTY IMPLANT AND GRAFT (15) Multiple myeloma Code(s): C90.00 - MULTIPLE MYELOMA NOT HAVING ACHIEVED REMISSION Qualifiers: Multiple myeloma remission status: not in remission Qualified Code(s): C90.00 - Multiple myeloma not having achieved remission uti hypotension Assessment/Plan continue current mgmt reps support rest as per the team supportive monitor closely bipap as needed cc40 min
[2019-10-13] MEDS: FUROSEMIDE INJECTION 100 MG in SODIUM CHLORIDE 40 ML IVPB SCH (11:30)
[2019-10-13] MEDS: NOREPINEPHRINE BITARTRATE 8,000 MCG in SODIUM CHLORIDE 492 ML IV SCH (12:07)
--- NOTE | 2019-10-13 12:15 | PN ---
Teaching Attending Note Name of Resident: Fernando Moeller ATTENDING PHYSICIAN STATEMENT I saw and evaluated the patient. I reviewed the resident's note and discussed the case with the resident. I agree with the resident's findings and plan as documented. SUBJECTIVE: Pt seen and examined in the ICU. Remains on BiPAP. Off levophed gtt. Poor urine output despite lasix gtt. OBJECTIVE: Vital Signs Period Temp Pulse Resp BP Sys/[place]oss Pulse Ox Last 24 Hr 97.5 F-98 F 71-84 13-22 90-103/53-67 93-100 Intake & Output 10/10/19 10/11/19 10/12/19 10/13/19 23:59 23:59 23:59 23:59 Intake Total 2191.2 411.0 229 Output Total 110 100 50 100 Balance 2081.2 311.0 179 -100 Weight 78.5 kg 79.878 kg 80.513 kg 81.057 kg Gen: somnolent, lethargic on BiPAP but arousable Heart: RRR Lung: decreased breath sounds at the bases Abd: soft, nontender Ext: + edema CBC, BMP 10/13/19 05:30 10/13/19 05:30 Active Medications Acetaminophen (Tylenol -) 650 mg PO Q6H PRN PRN Reason: FEVER Last Admin: 10/07/19 21:49 Dose: 650 mg Allopurinol (Zyloprim -) 100 mg PO DAILY [facility] Last Admin: 10/13/19 09:35 Dose: 100 mg Amiodarone HCl (Cordarone -) 200 mg PO BID [facility] Last Admin: 10/13/19 09:33 Dose: 200 mg Aspirin (Ecotrin -) 81 mg PO DAILY [facility] Last Admin: 10/13/19 09:33 Dose: 81 mg Atorvastatin Calcium (Lipitor -) 40 mg PO HS [facility] Last Admin: 10/12/19 21:04 Dose: 40 mg Escitalopram Oxalate (Lexapro -) 10 mg PO DAILY [facility] Last Admin: 10/13/19 09:34 Dose: 10 mg Hydrocortisone Sodium Succinate (Solu-Cortef -) 50 mg IVPB Q6H-IV [facility] Last Admin: 10/13/19 09:33 Dose: 50 mg Norepinephrine Bitartrate 8, (000 mcg/ Sodium Chloride) 500 mls @ 18.75 mls/hr IV TITR [facility]; Protocol Last Admin: 10/13/19 12:07 Dose: Not Given Furosemide 100 mg/ Sodium (Chloride) 50 mls @ 5 mls/hr IVPB TITR [facility]; Protocol Last Admin: 10/13/19 11:30 Dose: 10 mg/hr, 5 mls/hr Ipratropium [place] (Atrovent 0.02% Nebulizer -) 1 amp NEB RQID PRN PRN Reason: Dyspnea Last Admin: 10/12/19 11:53 Dose: 1 amp Levothyroxine Sodium (Synthroid -) 75 mcg PO DAILY@0700 [facility] Last Admin: 10/13/19 06:39 Dose: 75 mcg Midodrine (Proamatine -) 10 mg PO TID-MID [facility] Last Admin: 10/13/19 09:34 Dose: 10 mg Pantoprazole Sodium (Protonix -) 40 mg PO DAILY [facility] Last Admin: 10/13/19 09:34 Dose: 40 mg Valacyclovir HCl (Valtrex -) 500 mg PO DAILY [facility] Last Admin: 10/13/19 10:40 Dose: 500 mg ASSESSMENT AND PLAN: Acute on Chronic Systolic Heart Failure Cardiogenic Shock Acute on Chronic Renal Failure CAD Acute NSTEMI Paroxysmal Atrial Fibrillation Pneumonia Asthma Multiple Myeloma HTN Hyperlipidemia Hypothyroidism Anemia Hyponatremia - off levophed gtt - lasix gtt per renal - monitor urine output, creatinine - may need HD - daily weights - amiodarone - monitor H/H - completed antibiotics - O2 to keep SpO2 >90% - inhaled bronchodilators as needed - continue empiric hydrocortisone - DVT prophylaxis - continue ICU monitoring - poor overall prognosis, continue discussions regarding goals of care critical care time spent in reviewing chart, evaluating patient and formulating plan 35 min
--- NOTE | 2019-10-13 12:47 | PROC ---
Procedure Note Procedure: Consent obtained and placed in chart. RIJ Trialysis catheter placed under the supervision of Dr. Gomez. Sterile technique used. Uncomplicated access and placement. Sterile dressing and biopatch placed. Confirmatory CXR pending. Central Line Insertion Indication: Other (HD) Risks and Benefits Explained: Yes Consent on Chart: Yes Central Line: Dialysis Cath, Tri Lumen Anesthesia: 1% Lidocaine Sterile Technique: Yes Ultrasound Guided Assistance: Yes Position: Right Internal Jugular Post Insertion: Yes: Bilateral Breath Sounds, Bilateral Chest Expansion, Chest X-Ray Ordered Sterile Dressing Applied: Yes (with biopatch)
[2019-10-13] MEDS ORDERED: ALBUMIN HUMAN 25% 12.5 GM/50 ML VIAL IVPB SCH (13:45)
--- NOTE | 2019-10-13 13:49 | PN ---
Progress Note, Physician History of Present Illness: Pt seen and examined at bedside. She is now on bipap. SHe did not make much urine. She agrees to trial of HD. - Current Medication List Current Medications: Active Medications Acetaminophen (Tylenol -) 650 mg PO Q6H PRN PRN Reason: FEVER Last Admin: 10/07/19 21:49 Dose: 650 mg Albumin Human (Albumin Human 25%) 12.5 gm IVPB Q30M [facility] Allopurinol (Zyloprim -) 100 mg PO DAILY [facility] Last Admin: 10/13/19 09:35 Dose: 100 mg Amiodarone HCl (Cordarone -) 200 mg PO BID [facility] Last Admin: 10/13/19 09:33 Dose: 200 mg Aspirin (Ecotrin -) 81 mg PO DAILY [facility] Last Admin: 10/13/19 09:33 Dose: 81 mg Atorvastatin Calcium (Lipitor -) 40 mg PO HS [facility] Last Admin: 10/12/19 21:04 Dose: 40 mg Escitalopram Oxalate (Lexapro -) 10 mg PO DAILY [facility] Last Admin: 10/13/19 09:34 Dose: 10 mg Hydrocortisone Sodium Succinate (Solu-Cortef -) 50 mg IVPB Q6H-IV [facility] Last Admin: 10/13/19 09:33 Dose: 50 mg Norepinephrine Bitartrate 8, (000 mcg/ Sodium Chloride) 500 mls @ 18.75 mls/hr IV TITR [facility]; Protocol Last Admin: 10/13/19 12:07 Dose: Not Given Sodium Chloride (Normal Saline -) 250 mls @ 3,000 mls/hr IV PRN PRN PRN Reason: Hypotension during Dialysis Stop: 10/14/19 13:39 Ipratropium [place] (Atrovent 0.02% Nebulizer -) 1 amp NEB RQID PRN PRN Reason: Dyspnea Last Admin: 10/12/19 11:53 Dose: 1 amp Levothyroxine Sodium (Synthroid -) 75 mcg PO DAILY@0700 [facility] Last Admin: 10/13/19 06:39 Dose: 75 mcg Midodrine (Proamatine -) 10 mg PO TID-MID [facility] Last Admin: 10/13/19 09:34 Dose: 10 mg Pantoprazole Sodium (Protonix -) 40 mg PO DAILY [facility] Last Admin: 10/13/19 09:34 Dose: 40 mg Valacyclovir HCl (Valtrex -) 500 mg PO DAILY [facility] Last Admin: 10/13/19 10:40 Dose: 500 mg - Objective Vital Signs: Vital Signs Temperature 97 F L 10/13/19 13:29 Pulse Rate 74 10/13/19 13:29 Respiratory Rate 14 10/13/19 10:00 Blood Pressure 97/50 L 10/13/19 13:29 O2 Sat by Pulse Oximetry (%) 98 10/13/19 12:35 Constitutional: Yes: Calm Eyes: Yes: Conjunctiva Clear HENT: Yes: Atraumatic Neck: Yes: Supple Cardiovascular: Yes: S1, S2 Respiratory: Yes: On BiPap Gastrointestinal: Yes: Soft Genitourinary: Yes: [place] Present, Oliguria Musculoskeletal: Yes: Muscle Weakness Integumentary: Yes: WNL Neurological: Yes: Oriented Psychiatric: Yes: Oriented Labs: CBC, BMP 10/13/19 05:30 10/13/19 05:30 INR, PTT INR 0.99 (0.83-1.09) 10/07/19 02:55 Problem List - Problems (1) Fluid overload Code(s): E87.70 - FLUID OVERLOAD, UNSPECIFIED (2) CKD (chronic kidney disease) Code(s): N18.9 - CHRONIC KIDNEY DISEASE, UNSPECIFIED Assessment/Plan Current Medications Generic Name Dose Route Start Last Admin Trade Name Freq PRN Reason Stop Dose Admin Acetaminophen 650 mg 09/20/19 22:25 10/07/19 21:49 Tylenol - PO 650 mg Q6H PRN Administration FEVER Albumin Human 12.5 gm 10/13/19 13:45 Albumin Human 25% IVPB Q30M [facility] Allopurinol 100 mg 10/10/19 13:49 10/13/19 09:35 Zyloprim - PO 100 mg DAILY [facility] Administration Amiodarone HCl 200 mg 10/11/19 12:54 10/13/19 09:33 Cordarone - PO 200 mg BID [facility] Administration Aspirin 81 mg 09/25/19 10:00 10/13/19 09:33 Ecotrin - PO 81 mg DAILY [facility] Administration Atorvastatin Calcium 40 mg 09/20/19 22:00 10/12/19 21:04 Lipitor - PO 40 mg HS [facility] Administration Escitalopram Oxalate 10 mg 09/21/19 10:00 10/13/19 09:34 Lexapro - PO 10 mg DAILY [facility] Administration Hydrocortisone Sodium Succinate 50 mg 10/07/19 16:00 10/13/19 09:33 Solu-Cortef - IVPB 50 mg Q6H-IV [facility] Administration Norepinephrine Bitartrate 8, 500 mls @ 18.75 mls/hr 10/11/19 11:00 10/13/19 12:07 000 mcg/ Sodium Chloride IV Not Given TITR [facility] Protocol 5 MCG/MIN Sodium Chloride 250 mls @ 3,000 mls/hr 10/13/19 13:39 Normal Saline - IV 10/14/19 13:39 PRN PRN Hypotension during Dialysis Ipratropium [place] 1 amp 10/06/19 22:27 10/12/19 11:53 Atrovent 0.02% Nebulizer - NEB 1 amp RQID PRN Administration Dyspnea Levothyroxine Sodium 75 mcg 09/21/19 07:00 10/13/19 06:39 Synthroid - PO 75 mcg DAILY@0700 [facility] Administration Midodrine 10 mg 10/06/19 18:00 10/13/19 09:34 Proamatine - PO 10 mg TID-MID [facility] Administration Pantoprazole Sodium 40 mg 09/21/19 10:00 10/13/19 09:34 Protonix - PO 40 mg DAILY [facility] Administration Valacyclovir HCl 500 mg 09/21/19 10:00 10/13/19 10:40 Valtrex - PO 500 mg DAILY [facility] Administration Impression 1. proteinuria 2. multiple myeloma 3. amyloid 4. dizziness 5. hypotension 6. HLD 7. hypothyroidism 8. anemia 9. CKD 10. fluid overload 11. hypotension 12. hyperkalemia 13. nstemi 14. DEBBIE Plan - start HD today - pt did not respond to lasix drip, can stop drip - will attempt to UF volume if bp tolerates - albumin with HD - pressors as needed, she is off of HD - prognosis is poor
[2019-10-13 14:28] LABS: BLOOD UREA NITROGEN 80.6 mg/dL (7-18); CALCIUM 7.5 mg/dL (8.5-10.1); POTASSIUM 5.4 mmol/L (3.5-5.1)
--- NOTE | 2019-10-13 18:53 | PN ---
Progress Note (short form) - Note Progress Note: Patient seen and examiend Being dialyzed AFVSS Cor: RSR, No murmurs, No gallops Lungs: decreased at bases Abd: Soft, Normal bowel sounds, Ext:3+ edema Labs/Meds reviewed A/P Multiple Myeloma Amyloid CHF Anemia Fever LLL atelectasis vs infiltrate UTI Renal failure Hypotension CHF On levophed/midodrine On steroids Started HD today Overall poor prognosis with cardiac and renal amyloid
[2019-10-13] MEDS ORDERED: SODIUM CHLORIDE 250 ML IV PRN (19:42)
[2019-10-13] MEDS: ALBUMIN HUMAN 25% 12.5 GM/50 ML VIAL IVPB SCH ×3 (20:03→21:58)
--- NOTE | 2019-10-13 21:36 | PN ---
Progress Note, Physician - Current Medication List Current Medications: Active Medications Acetaminophen (Tylenol -) 650 mg PO Q6H PRN PRN Reason: FEVER Last Admin: 10/07/19 21:49 Dose: 650 mg Allopurinol (Zyloprim -) 100 mg PO DAILY [facility] Last Admin: 10/13/19 09:35 Dose: 100 mg Amiodarone HCl (Cordarone -) 200 mg PO BID [facility] Last Admin: 10/13/19 09:33 Dose: 200 mg Aspirin (Ecotrin -) 81 mg PO DAILY [facility] Last Admin: 10/13/19 09:33 Dose: 81 mg Atorvastatin Calcium (Lipitor -) 40 mg PO HS [facility] Last Admin: 10/12/19 21:04 Dose: 40 mg Escitalopram Oxalate (Lexapro -) 10 mg PO DAILY [facility] Last Admin: 10/13/19 09:34 Dose: 10 mg Hydrocortisone Sodium Succinate (Solu-Cortef -) 50 mg IVPB Q6H-IV [facility] Last Admin: 10/13/19 14:16 Dose: 50 mg Norepinephrine Bitartrate 8, (000 mcg/ Sodium Chloride) 500 mls @ 18.75 mls/hr IV TITR [facility]; Protocol Last Admin: 10/13/19 12:07 Dose: Not Given Sodium Chloride (Normal Saline -) 250 mls @ 3,000 mls/hr IV PRN PRN PRN Reason: Hypotension during Dialysis Stop: 10/13/19 23:00 Ipratropium [place] (Atrovent 0.02% Nebulizer -) 1 amp NEB RQID PRN PRN Reason: Dyspnea Last Admin: 10/12/19 11:53 Dose: 1 amp Levothyroxine Sodium (Synthroid -) 75 mcg PO DAILY@0700 [facility] Last Admin: 10/13/19 06:39 Dose: 75 mcg Midodrine (Proamatine -) 10 mg PO TID-MID [facility] Last Admin: 10/13/19 17:44 Dose: 10 mg Pantoprazole Sodium (Protonix -) 40 mg PO DAILY [facility] Last Admin: 10/13/19 09:34 Dose: 40 mg Valacyclovir HCl (Valtrex -) 500 mg PO DAILY [facility] Last Admin: 10/13/19 10:40 Dose: 500 mg - Objective Vital Signs: Vital Signs Temperature 98.2 F 10/13/19 19:00 Pulse Rate 90 10/13/19 20:40 Respiratory Rate 20 10/13/19 20:40 Blood Pressure 99/58 L 10/13/19 20:40 O2 Sat by Pulse Oximetry (%) 99 10/13/19 20:31 Labs: CBC, BMP 10/13/19 05:30 10/13/19 13:40 INR, PTT INR 0.99 (0.83-1.09) 10/07/19 02:55 Problem List - Problems (1) Elevated troponin Code(s): R74.8 - ABNORMAL LEVELS OF OTHER SERUM ENZYMES (2) Acute on chronic systolic CHF (congestive heart failure) Code(s): I50.23 - ACUTE ON CHRONIC SYSTOLIC (CONGESTIVE) HEART FAILURE (3) Multiple myeloma Code(s): C90.00 - MULTIPLE MYELOMA NOT HAVING ACHIEVED REMISSION Qualifiers: Multiple myeloma remission status: not in remission Qualified Code(s): C90.00 - Multiple myeloma not having achieved remission (4) HLD (hyperlipidemia) Code(s): E78.5 - HYPERLIPIDEMIA, UNSPECIFIED Qualifiers: Hyperlipidemia type: unspecified Qualified Code(s): E78.5 - Hyperlipidemia , unspecified (5) Hypothyroidism Code(s): E03.9 - HYPOTHYROIDISM, UNSPECIFIED Qualifiers: Hypothyroidism type: acquired Qualified Code(s): E03.9 - Hypothyroidism, unspecified (6) CAD (coronary artery disease) Code(s): I25.10 - ATHSCL HEART DISEASE OF [place] CORONARY ARTERY W/O ANG PCTRS Qualifiers: (7) Depression Code(s): F32.9 - MAJOR DEPRESSIVE DISORDER, SINGLE EPISODE, UNSPECIFIED (8) History of heart artery stent Code(s): Z95.5 - PRESENCE OF CORONARY ANGIOPLASTY IMPLANT AND GRAFT (9) Diarrhea Code(s): R19.7 - DIARRHEA, UNSPECIFIED Qualifiers: Diarrhea type: unspecified type Qualified Code(s): R19.7 - Diarrhea, unspecified (10) UTI (urinary tract infection) Code(s): N39.0 - URINARY TRACT INFECTION, SITE NOT SPECIFIED
[2019-10-13] MEDS: ATORVASTATIN CA 40 MG TABLET (FP) PO SCH (21:52)
[2019-10-14] MEDS: HYDROCORTISONE SOD SUCCINATE 100 MG/2 ML VIAL IVPB SCH ×4 (02:00→21:28)
[2019-10-14] MEDS: LEVOTHYROXINE NA 75 MCG TABLET (FP) PO SCH (06:07)
[2019-10-14 06:10] LABS: BASO % 0.1 % (0-2.0); HEMATOCRIT 23.9 % (32.4-45.2); LYMPH % 0.8 % (8-40); MCH 31.4 pg (25.7-33.7); MCHC 33.6 g/dl (32.0-36.0); MEAN CELL VOLUME 93.6 fl (80-96); MEAN PLT VOLUME 9.1 fl (7.5-11.1); MONO % 3.8 % (3.8-10.2); NEUT % 95.3 % (42.8-82.8); PLATELET COUNT 123 K/MM3 (134-434); RBC 2.55 M/mm3 (3.60-5.2); RDW 17.8 % (11.6-15.6); WHITE BLOOD COUNT 4.9 K/mm3 (4.0-10.0)
[2019-10-14 06:36] LABS: ALBUMIN 1.5 g/dl (3.4-5.0); BILIRUBIN,TOTAL 0.4 mg/dL (0.2-1); BLOOD UREA NITROGEN 59.7 mg/dL (7-18); CALCIUM 7.5 mg/dL (8.5-10.1); CREATININE 3.1 mg/dL (0.55-1.3); MAGNESIUM 2.4 mg/dL (1.8-2.4); PHOSPHOROUS 6.2 mg/dL (2.5-4.9); POTASSIUM 4.6 mmol/L (3.5-5.1); TOT PROT 6.8 g/dl (6.4-8.2)
--- NOTE | 2019-10-14 08:26 | PN ---
Physical Exam: SUBJECTIVE: Patient seen and examined by the bedside. She is seated and eating breakfast, on 4L NC, reports that she is feeling much better. OBJECTIVE: Vital Signs Period Temp Pulse Resp BP Sys/Moss Pulse Ox Last 24 Hr 97 F-98.6 F 71-96 13-20 87-109/50-66 95-100 GENERAL: AOx3, in no acute distress EYES: ZOILA, EOMI HEAD: Dry MM LUNGS: No wheezes, no crackles, no accessory muscle use HEART: RRR, S1, S2 without murmur, rub or gallop appreciated ABDOMEN: Soft, non-tender, non-distended, no guarding EXTREMITIES: 2+ edema B/L ankles , 2+ pulses, warm, SCDs in place NEUROLOGICAL: Normal speech, gait not observed SKIN: Warm, dry, no rashes observed Laboratory Results - last 24 hr 10/10/19 10/13/19 10/13/19 13:30 05:30 05:30 WBC RBC Hgb Hct MCV MCH MCHC RDW Plt Count MPV Absolute Neuts (auto) Neutrophils % Neutrophils % (Manual) 95.0 H Band Neutrophils % 1.0 Lymphocytes % Lymphocytes % (Manual) 0.0 L Monocytes % Monocytes % (Manual) 4 Eosinophils % Eosinophils % (Manual) 0.0 Basophils % Basophils % (Manual) 0.0 Myelocytes % (Man) 0 Promyelocytes % (Man) 0 Blast Cells % (Manual) 0 Nucleated RBC % Metamyelocytes 0 Platelet Estimate Decreased Polychromasia 1+ Anisocytosis 1+ PTT (Actin FS) 36.2 Sodium Potassium Chloride Carbon Dioxide Anion Gap BUN Creatinine Est GFR (CKD-EPI)AfAm Est GFR (CKD-EPI)NonAf Random Glucose Calcium Phosphorus Magnesium Total Bilirubin AST ALT Alkaline Phosphatase Total Protein Albumin Blood Type B POSITIVE Antibody Screen Negative Crossmatch See Detail 10/13/19 10/14/19 10/14/19 13:40 05:30 05:30 WBC 4.9 RBC 2.55 L Hgb 8.0 L Hct 23.9 L MCV 93.6 MCH 31.4 MCHC 33.6 RDW 17.8 H Plt Count 123 L MPV 9.1 Absolute Neuts (auto) 4.7 Neutrophils % 95.3 H Neutrophils % (Manual) Band Neutrophils % Lymphocytes % 0.8 L Lymphocytes % (Manual) Monocytes % 3.8 Monocytes % (Manual) Eosinophils % 0.0 Eosinophils % (Manual) Basophils % 0.1 Basophils % (Manual) Myelocytes % (Man) Promyelocytes % (Man) Blast Cells % (Manual) Nucleated RBC % 0 Metamyelocytes Platelet Estimate Polychromasia Anisocytosis PTT (Actin FS) Sodium 126 L 131 L Potassium 5.4 H 4.6 Chloride 88 L 93 L Carbon Dioxide 22 25 Anion Gap 16 13 BUN 80.6 H 59.7 H Creatinine 4.0 H 3.1 H Est GFR (CKD-EPI)AfAm 11.94 16.25 Est GFR (CKD-EPI)NonAf 10.30 14.02 Random Glucose 88 88 Calcium 7.5 L 7.5 L Phosphorus 6.2 H Magnesium 2.4 Total Bilirubin 0.4 AST 74 H ALT 140 H Alkaline Phosphatase 82 Total Protein 6.8 Albumin 1.5 L Blood Type Antibody Screen Crossmatch Active Medications Generic Name Dose Route Start Last Admin Trade Name Freq PRN Reason Stop Dose Admin Acetaminophen 650 mg 09/20/19 22:25 10/07/19 21:49 Tylenol - PO 650 mg Q6H PRN Administration FEVER Allopurinol 100 mg 10/10/19 13:49 10/13/19 09:35 Zyloprim - PO 100 mg DAILY [facility] Administration Amiodarone HCl 200 mg 10/11/19 12:54 10/13/19 21:52 Cordarone - PO 200 mg BID [facility] Administration Aspirin 81 mg 09/25/19 10:00 10/13/19 09:33 Ecotrin - PO 81 mg DAILY [facility] Administration Atorvastatin Calcium 40 mg 09/20/19 22:00 10/13/19 21:52 Lipitor - PO 40 mg HS [facility] Administration Escitalopram Oxalate 10 mg 09/21/19 10:00 10/13/19 09:34 Lexapro - PO 10 mg DAILY [facility] Administration Hydrocortisone Sodium Succinate 50 mg 10/07/19 16:00 10/14/19 02:00 Solu-Cortef - IVPB 50 mg Q6H-IV [facility] Administration Norepinephrine Bitartrate 8, 500 mls @ 18.75 mls/hr 10/11/19 11:00 10/14/19 02:01 000 mcg/ Sodium Chloride IV 1 mcg/min TITR [facility] 3.75 mls/hr Titration Protocol 5 MCG/MIN Ipratropium [place] 1 amp 10/06/19 22:27 10/12/19 11:53 Atrovent 0.02% Nebulizer - NEB 1 amp RQID PRN Administration Dyspnea Levothyroxine Sodium 75 mcg 09/21/19 07:00 10/14/19 06:07 Synthroid - PO 75 mcg DAILY@0700 [facility] Administration Midodrine 10 mg 10/06/19 18:00 10/13/19 17:44 Proamatine - PO 10 mg TID-MID [facility] Administration Pantoprazole Sodium 40 mg 09/21/19 10:00 10/13/19 09:34 Protonix - PO 40 mg DAILY [facility] Administration Valacyclovir HCl 500 mg 09/21/19 10:00 10/13/19 10:40 Valtrex - PO 500 mg DAILY [facility] Administration ASSESSMENT/PLAN: 73 y/o/f with PMHx of multiple myeloma (currently on treatment), amyloidosis, chronic anemia, hypertension, hyperlipidemia, hypothyroidism, GERD, admitted for UGIB, renal failure, volume overload, transferred to the ICU for hypotension refractory to IVF boluses. #Neuro - AOx3, resumed Lexapro #Cardiovascular - Cardiogenic shock: Midodrine 10mg PO, Norepi stopped briefly but resumed, currently running @ 1 mcg/min - Tachycardia: rate control with Amio 200mg BID, switched from 0.5 infusion - Continue home meds Aspirin 81mg, Atorvastatin 40mg - Hydrocortisone Q6H - Appreciate cardio recs #Pulm - CXR: unchanged from prior - Duonebs as needed - NC 4L, was on BiPAP the past 2 days - Lasix drip D/Scotty, now on HD #GI - Small bloody BM yesterday morning - FOBT ordered - GI (Dr. Perkins consulted) - Monitoring H&H #Renal - BUN/Cr 4.0 -> 3.1 - Underwent HD 10/13, RIGHT TLC placed 10/13, Lasix drip D/Scotty - Nephro recs: HD, Albumin, poor prognosis #Heme/Onc - Multiple Myeloma: Continue Lokelma, Allopurinol decreased as per Nephro due to nephrotoxicity - Hg 8.2 -> 7.4 -> 6.9 -> 8.1 -> 7.5 -> 7.4 -> 8.2 -> 7.8 -> 7.9 -> 7.9 > 8.0 - > 8.0 - 1xPRBC 10/10, s/p 1xPRBC 12/ #Endo - Hx of hypothyroidism, continue levothyroxine #FEN - NPO pending GI recs #Prophylaxis - SCDs, Heparin D/Scotty 2/2 GIB #Dispo - DNR, [facility] status pending - Poor prognosis, requesting plant health care technician ATTENDING PHYSICIAN STATEMENT I saw and evaluated the patient. I reviewed the resident's note and discussed the case with the resident. I agree with the resident's findings and plan as documented. SUBJECTIVE: OBJECTIVE: ASSESSMENT AND PLAN:
[2019-10-14] MEDS ORDERED: PT OWN MED DRAWER 7, Y5N ONE ×2 (09:29→12:05)
[2019-10-14] MEDS: MIDODRINE HCL 5 MG TABLET PO SCH ×3 (09:39→18:21)
[2019-10-14] MEDS: ESCITALOPRAM OXALATE 10 MG TABLET (FP) PO SCH (09:39)
[2019-10-14] MEDS: ASPIRIN COATED 81 MG TABLET.EC PO SCH (09:39)
[2019-10-14] MEDS: ALLOPURINOL 100 MG TABLET (FP) PO SCH (09:39)
[2019-10-14] MEDS: PANTOPRAZOLE 40 MG TABLET (FP) PO SCH (09:39)
[2019-10-14] MEDS: AMIODARONE HCL 200 MG TABLET (FP) PO SCH ×2 (09:40→21:28)
[2019-10-14 09:45] LABS: ANISOCYTOSIS 2+; MACROCYTOSIS 0; PLATELET ESTIMATE DECREASED; TARGET CELLS 1+
[2019-10-14] MEDS: ALBUMIN HUMAN 25% 12.5 GM/50 ML VIAL IVPB SCH ×5 (09:46→16:00)
--- NOTE | 2019-10-14 10:12 | PN ---
Teaching Attending Note Name of Resident: Roger Herr ATTENDING PHYSICIAN STATEMENT I saw and evaluated the patient. I reviewed the resident's note and discussed the case with the resident. I agree with the resident's findings and plan as documented. SUBJECTIVE: Patient seen and examined in the ICU. Awake and alert. Currently off levophed drip, but BP is marginal. Reports feeling better. OBJECTIVE: Intake & Output 10/11/19 10/12/19 10/13/19 10/14/19 23:59 23:59 23:59 23:59 Intake Total 411.0 229 560 120 Output Total 563 94 4449 25 Balance 311.0 179 -1340 95 Weight 176 lb 1.6 oz 177 lb 8 oz 178 lb 11.2 oz 167 lb 8 oz Last Vital Signs Temp Pulse Resp BP Pulse Ox 98.4 F 88 20 95/59 L 100 10/14/19 06:00 10/14/19 08:55 10/14/19 08:00 10/14/19 08:00 10/14/19 09:00 Active Medications Acetaminophen (Tylenol -) 650 mg PO Q6H PRN PRN Reason: FEVER Last Admin: 10/07/19 21:49 Dose: 650 mg Allopurinol (Zyloprim -) 100 mg PO DAILY [facility] Last Admin: 10/14/19 09:39 Dose: 100 mg Amiodarone HCl (Cordarone -) 200 mg PO BID [facility] Last Admin: 10/14/19 09:40 Dose: 200 mg Aspirin (Ecotrin -) 81 mg PO DAILY [facility] Last Admin: 10/14/19 09:39 Dose: 81 mg Atorvastatin Calcium (Lipitor -) 40 mg PO HS [facility] Last Admin: 10/13/19 21:52 Dose: 40 mg Escitalopram Oxalate (Lexapro -) 10 mg PO DAILY [facility] Last Admin: 10/14/19 09:39 Dose: 10 mg Hydrocortisone Sodium Succinate (Solu-Cortef -) 50 mg IVPB Q6H-IV [facility] Last Admin: 10/14/19 09:39 Dose: 50 mg Norepinephrine Bitartrate 8, (000 mcg/ Sodium Chloride) 500 mls @ 18.75 mls/hr IV TITR [facility]; Protocol Last Titration: 10/14/19 02:01 Dose: 1 mcg/min, 3.75 mls/hr Ipratropium [place] (Atrovent 0.02% Nebulizer -) 1 amp NEB RQID PRN PRN Reason: Dyspnea Last Admin: 10/12/19 11:53 Dose: 1 amp Levothyroxine Sodium (Synthroid -) 75 mcg PO DAILY@0700 [facility] Last Admin: 10/14/19 06:07 Dose: 75 mcg Midodrine (Proamatine -) 10 mg PO TID-MID [facility] Last Admin: 10/14/19 09:39 Dose: 10 mg Pantoprazole Sodium (Protonix -) 40 mg PO DAILY [facility] Last Admin: 10/14/19 09:39 Dose: 40 mg Valacyclovir HCl (Valtrex -) 500 mg PO DAILY [facility] Last Admin: 10/13/19 10:40 Dose: 500 mg Gen: Awake and alert, NAD Heart: RRR Lung: decreased breath sounds at the bases Abd: soft, nontender Ext: + edema Laboratory Results - last 24 hr 10/10/19 10/13/19 10/13/19 13:30 05:30 13:40 WBC RBC Hgb Hct MCV MCH MCHC RDW Plt Count MPV Absolute Neuts (auto) Neutrophils % Neutrophils % (Manual) Band Neutrophils % Lymphocytes % Lymphocytes % (Manual) Monocytes % Monocytes % (Manual) Eosinophils % Eosinophils % (Manual) Basophils % Basophils % (Manual) Myelocytes % (Man) Promyelocytes % (Man) Blast Cells % (Manual) Nucleated RBC % Metamyelocytes Hypochromia Platelet Estimate Polychromasia Poikilocytosis Anisocytosis Microcytosis Macrocytosis Target Cells PTT (Actin FS) 36.2 Sodium 126 L Potassium 5.4 H Chloride 88 L Carbon Dioxide 22 Anion Gap 16 BUN 80.6 H Creatinine 4.0 H Est GFR (CKD-EPI)AfAm 11.94 Est GFR (CKD-EPI)NonAf 10.30 Random Glucose 88 Calcium 7.5 L Phosphorus Magnesium Total Bilirubin AST ALT Alkaline Phosphatase Total Protein Albumin Blood Type B POSITIVE Antibody Screen Negative Crossmatch See Detail 10/14/19 10/14/19 05:30 05:30 WBC 4.9 RBC 2.55 L Hgb 8.0 L Hct 23.9 L MCV 93.6 MCH 31.4 MCHC 33.6 RDW 17.8 H Plt Count 123 L MPV 9.1 Absolute Neuts (auto) 4.7 Neutrophils % 95.3 H Neutrophils % (Manual) 95.9 H Band Neutrophils % 0.0 Lymphocytes % 0.8 L Lymphocytes % (Manual) 0.0 L Monocytes % 3.8 Monocytes % (Manual) 4 Eosinophils % 0.0 Eosinophils % (Manual) 0.0 Basophils % 0.1 Basophils % (Manual) 0.0 Myelocytes % (Man) 0 Promyelocytes % (Man) 0 Blast Cells % (Manual) 0 Nucleated RBC % 0 Metamyelocytes 0 Hypochromia 0 Platelet Estimate Decreased Polychromasia 1+ Poikilocytosis 0 Anisocytosis 2+ Microcytosis 0 Macrocytosis 0 Target Cells 1+ PTT (Actin FS) Sodium 131 L Potassium 4.6 Chloride 93 L Carbon Dioxide 25 Anion Gap 13 BUN 59.7 H Creatinine 3.1 H Est GFR (CKD-EPI)AfAm 16.25 Est GFR (CKD-EPI)NonAf 14.02 Random Glucose 88 Calcium 7.5 L Phosphorus 6.2 H Magnesium 2.4 Total Bilirubin 0.4 AST 74 H ALT 140 H Alkaline Phosphatase 82 Total Protein 6.8 Albumin 1.5 L Blood Type Antibody Screen Crossmatch ASSESSMENT AND PLAN: Acute on Chronic Systolic Heart Failure Cardiogenic Shock Acute on Chronic Renal Failure CAD Acute NSTEMI Paroxysmal Atrial Fibrillation Pneumonia Asthma Multiple Myeloma HTN Hyperlipidemia Hypothyroidism Anemia Hyponatremia - May need restart levophed drip if MAP does not improve - Lasix gtt per renal - monitor urine output, creatinine - HD per Renal - daily weights - amiodarone - monitor H/H - completed antibiotics - O2 to keep SpO2 >90% - inhaled bronchodilators as needed - continue empiric hydrocortisone - DVT prophylaxis - continue ICU monitoring - poor overall prognosis, continue discussions regarding goals of care - For possible LTAC transfer Dr Bacon
--- NOTE | 2019-10-14 10:51 | PN ---
Progress Note, Physician History of Present Illness: patient looks much more comfortable today was dialyzed on nasal canula off of bipap still requiring pressor support - Current Medication List Current Medications: Active Medications Acetaminophen (Tylenol -) 650 mg PO Q6H PRN PRN Reason: FEVER Last Admin: 10/07/19 21:49 Dose: 650 mg Allopurinol (Zyloprim -) 100 mg PO DAILY [facility] Last Admin: 10/14/19 09:39 Dose: 100 mg Amiodarone HCl (Cordarone -) 200 mg PO BID [facility] Last Admin: 10/14/19 09:40 Dose: 200 mg Aspirin (Ecotrin -) 81 mg PO DAILY [facility] Last Admin: 10/14/19 09:39 Dose: 81 mg Atorvastatin Calcium (Lipitor -) 40 mg PO HS [facility] Last Admin: 10/13/19 21:52 Dose: 40 mg Escitalopram Oxalate (Lexapro -) 10 mg PO DAILY [facility] Last Admin: 10/14/19 09:39 Dose: 10 mg Hydrocortisone Sodium Succinate (Solu-Cortef -) 50 mg IVPB Q6H-IV [facility] Last Admin: 10/14/19 09:39 Dose: 50 mg Norepinephrine Bitartrate 8, (000 mcg/ Sodium Chloride) 500 mls @ 18.75 mls/hr IV TITR [facility]; Protocol Last Titration: 10/14/19 02:01 Dose: 1 mcg/min, 3.75 mls/hr Ipratropium [place] (Atrovent 0.02% Nebulizer -) 1 amp NEB RQID PRN PRN Reason: Dyspnea Last Admin: 10/12/19 11:53 Dose: 1 amp Levothyroxine Sodium (Synthroid -) 75 mcg PO DAILY@0700 [facility] Last Admin: 10/14/19 06:07 Dose: 75 mcg Midodrine (Proamatine -) 10 mg PO TID-MID [facility] Last Admin: 10/14/19 09:39 Dose: 10 mg Pantoprazole Sodium (Protonix -) 40 mg PO DAILY [facility] Last Admin: 10/14/19 09:39 Dose: 40 mg Valacyclovir HCl (Valtrex -) 500 mg PO DAILY [facility] Last Admin: 10/13/19 10:40 Dose: 500 mg - Objective Vital Signs: Vital Signs Temperature 97.7 F 10/14/19 10:00 Pulse Rate 74 10/14/19 10:00 Respiratory Rate 20 10/14/19 10:00 Blood Pressure 94/53 L 10/14/19 10:00 O2 Sat by Pulse Oximetry (%) 100 10/14/19 09:00 Constitutional: Yes: No Distress, Calm Cardiovascular: Yes: S1, S2 Respiratory: Yes: Regular, CTA Bilaterally Gastrointestinal: Yes: Normal Bowel Sounds, Soft Musculoskeletal: Yes: WNL Extremities: Yes: WNL Neurological: Yes: Alert, Oriented Psychiatric: Yes: Alert, Oriented Labs: CBC, BMP 10/14/19 05:30 10/14/19 05:30 INR, PTT INR 0.99 (0.83-1.09) 10/07/19 02:55 Assessment/Plan Problem List - Problems (1) Anasarca Code(s): R60.1 - GENERALIZED EDEMA (2) Fluid overload Code(s): E87.70 - FLUID OVERLOAD, UNSPECIFIED (3) Hypoxia Code(s): R09.02 - HYPOXEMIA (4) Weakness Code(s): R53.1 - WEAKNESS (5) ASHD (arteriosclerotic heart disease) Code(s): I25.10 - ATHSCL HEART DISEASE OF [place] CORONARY ARTERY W/O ANG PCTRS (6) Acute exacerbation of CHF (congestive heart failure) Code(s): I50.9 - HEART FAILURE, UNSPECIFIED (7) Acute on chronic systolic CHF (congestive heart failure) Code(s): I50.23 - ACUTE ON CHRONIC SYSTOLIC (CONGESTIVE) HEART FAILURE (8) Adult onset hypothyroidism Code(s): E03.8 - OTHER SPECIFIED HYPOTHYROIDISM (9) Anemia Code(s): D64.9 - ANEMIA, UNSPECIFIED (10) CKD (chronic kidney disease) Code(s): N18.9 - CHRONIC KIDNEY DISEASE, UNSPECIFIED (11) Elevated troponin Code(s): R74.8 - ABNORMAL LEVELS OF OTHER SERUM ENZYMES (12) HLD (hyperlipidemia) Code(s): E78.5 - HYPERLIPIDEMIA, UNSPECIFIED Qualifiers: Hyperlipidemia type: unspecified Qualified Code(s): E78.5 - Hyperlipidemia , unspecified (13) HTN (hypertension) Code(s): I10 - ESSENTIAL (PRIMARY) HYPERTENSION Qualifiers: Hypertension type: unspecified Qualified Code(s): I10 - Essential (primary ) hypertension (14) History of heart artery stent Code(s): Z95.5 - PRESENCE OF CORONARY ANGIOPLASTY IMPLANT AND GRAFT (15) Multiple myeloma Code(s): C90.00 - MULTIPLE MYELOMA NOT HAVING ACHIEVED REMISSION Qualifiers: Multiple myeloma remission status: not in remission Qualified Code(s): C90.00 - Multiple myeloma not having achieved remission uti hypotension Assessment/Plan continue current mgmt monitor bp resp support close watch will hold off on abx rest as per icu cc 40 min
[2019-10-14] MEDS: valACYclovir HCL 500 MG TABLET (FP) PO SCH (11:30)
--- NOTE | 2019-10-14 13:48 | PN ---
Progress Note, Physician History of Present Illness: Pt seen and examined at bedside. She feels that her breathing is a little better but she is still short of breath. - Current Medication List Current Medications: Active Medications Acetaminophen (Tylenol -) 650 mg PO Q6H PRN PRN Reason: FEVER Last Admin: 10/07/19 21:49 Dose: 650 mg Allopurinol (Zyloprim -) 100 mg PO DAILY [facility] Last Admin: 10/14/19 09:39 Dose: 100 mg Amiodarone HCl (Cordarone -) 200 mg PO BID [facility] Last Admin: 10/14/19 09:40 Dose: 200 mg Aspirin (Ecotrin -) 81 mg PO DAILY [facility] Last Admin: 10/14/19 09:39 Dose: 81 mg Atorvastatin Calcium (Lipitor -) 40 mg PO HS [facility] Last Admin: 10/13/19 21:52 Dose: 40 mg Escitalopram Oxalate (Lexapro -) 10 mg PO DAILY [facility] Last Admin: 10/14/19 09:39 Dose: 10 mg Hydrocortisone Sodium Succinate (Solu-Cortef -) 50 mg IVPB Q6H-IV [facility] Last Admin: 10/14/19 09:39 Dose: 50 mg Norepinephrine Bitartrate 8, (000 mcg/ Sodium Chloride) 500 mls @ 18.75 mls/hr IV TITR [facility]; Protocol Last Titration: 10/14/19 02:01 Dose: 1 mcg/min, 3.75 mls/hr Ipratropium [place] (Atrovent 0.02% Nebulizer -) 1 amp NEB RQID PRN PRN Reason: Dyspnea Last Admin: 10/12/19 11:53 Dose: 1 amp Levothyroxine Sodium (Synthroid -) 75 mcg PO DAILY@0700 [facility] Last Admin: 10/14/19 06:07 Dose: 75 mcg Midodrine (Proamatine -) 10 mg PO TID-MID [facility] Last Admin: 10/14/19 09:39 Dose: 10 mg Pantoprazole Sodium (Protonix -) 40 mg PO DAILY [facility] Last Admin: 10/14/19 09:39 Dose: 40 mg Valacyclovir HCl (Valtrex -) 500 mg PO DAILY [facility] Last Admin: 10/14/19 11:30 Dose: 500 mg - Objective Vital Signs: Vital Signs Temperature 97.7 F 10/14/19 10:00 Pulse Rate 83 10/14/19 13:00 Respiratory Rate 18 10/14/19 13:00 Blood Pressure 96/53 L 10/14/19 13:00 O2 Sat by Pulse Oximetry (%) 100 10/14/19 09:00 Constitutional: Yes: Calm Eyes: Yes: Conjunctiva Clear HENT: Yes: Atraumatic Neck: Yes: Supple Cardiovascular: Yes: S1, S2 Respiratory: Yes: On Nasal O2 Gastrointestinal: Yes: Soft Genitourinary: Yes: WNL Musculoskeletal: Yes: WNL Edema: Yes Edema: LLE: 2+, RLE: 2+ Neurological: Yes: Oriented Psychiatric: Yes: Oriented Labs: CBC, BMP 10/14/19 05:30 10/14/19 05:30 INR, PTT INR 0.99 (0.83-1.09) 10/07/19 02:55 Problem List - Problems (1) Fluid overload Code(s): E87.70 - FLUID OVERLOAD, UNSPECIFIED (2) CKD (chronic kidney disease) Code(s): N18.9 - CHRONIC KIDNEY DISEASE, UNSPECIFIED Assessment/Plan Current Medications Generic Name Dose Route Start Last Admin Trade Name Freq PRN Reason Stop Dose Admin Acetaminophen 650 mg 09/20/19 22:25 10/07/19 21:49 Tylenol - PO 650 mg Q6H PRN Administration FEVER Allopurinol 100 mg 10/10/19 13:49 10/14/19 09:39 Zyloprim - PO 100 mg DAILY [facility] Administration Amiodarone HCl 200 mg 10/11/19 12:54 10/14/19 09:40 Cordarone - PO 200 mg BID [facility] Administration Aspirin 81 mg 09/25/19 10:00 10/14/19 09:39 Ecotrin - PO 81 mg DAILY [facility] Administration Atorvastatin Calcium 40 mg 09/20/19 22:00 10/13/19 21:52 Lipitor - PO 40 mg HS [facility] Administration Escitalopram Oxalate 10 mg 09/21/19 10:00 10/14/19 09:39 Lexapro - PO 10 mg DAILY [facility] Administration Hydrocortisone Sodium Succinate 50 mg 10/07/19 16:00 10/14/19 09:39 Solu-Cortef - IVPB 50 mg Q6H-IV [facility] Administration Norepinephrine Bitartrate 8, 500 mls @ 18.75 mls/hr 10/11/19 11:00 10/14/19 02:01 000 mcg/ Sodium Chloride IV 1 mcg/min TITR [facility] 3.75 mls/hr Titration Protocol 5 MCG/MIN Ipratropium [place] 1 amp 10/06/19 22:27 10/12/19 11:53 Atrovent 0.02% Nebulizer - NEB 1 amp RQID PRN Administration Dyspnea Levothyroxine Sodium 75 mcg 09/21/19 07:00 10/14/19 06:07 Synthroid - PO 75 mcg DAILY@0700 [facility] Administration Midodrine 10 mg 10/06/19 18:00 10/14/19 09:39 Proamatine - PO 10 mg TID-MID [facility] Administration Pantoprazole Sodium 40 mg 09/21/19 10:00 10/14/19 09:39 Protonix - PO 40 mg DAILY [facility] Administration Valacyclovir HCl 500 mg 09/21/19 10:00 10/14/19 11:30 Valtrex - PO 500 mg DAILY [facility] Administration Impression 1. proteinuria 2. multiple myeloma 3. amyloid 4. dizziness 5. hypotension 6. HLD 7. hypothyroidism 8. anemia 9. CKD 10. fluid overload 11. hypotension 12. hyperkalemia 13. nstemi 14. DEBBIE Plan - HD again today - will dialyze again today with UF - albumin with hd - cont pressors - prognosis is poor
[2019-10-14] MEDS ORDERED: SODIUM CHLORIDE 250 ML IV PRN (14:19)
--- NOTE | 2019-10-14 14:50 | PN ---
Progress Note, Physician Chief Complaint: Pt A&Ox3; restless night; fatigued. No chest pain - Current Medication List Current Medications: Active Medications Acetaminophen (Tylenol -) 650 mg PO Q6H PRN PRN Reason: FEVER Last Admin: 10/07/19 21:49 Dose: 650 mg Albumin Human (Albumin Human 25%) 12.5 gm IVPB Q30M [facility] Stop: 10/14/19 16:01 Allopurinol (Zyloprim -) 100 mg PO DAILY [facility] Last Admin: 10/14/19 09:39 Dose: 100 mg Amiodarone HCl (Cordarone -) 200 mg PO BID [facility] Last Admin: 10/14/19 09:40 Dose: 200 mg Aspirin (Ecotrin -) 81 mg PO DAILY [facility] Last Admin: 10/14/19 09:39 Dose: 81 mg Atorvastatin Calcium (Lipitor -) 40 mg PO HS [facility] Last Admin: 10/13/19 21:52 Dose: 40 mg Escitalopram Oxalate (Lexapro -) 10 mg PO DAILY [facility] Last Admin: 10/14/19 09:39 Dose: 10 mg Hydrocortisone Sodium Succinate (Solu-Cortef -) 50 mg IVPB Q6H-IV [facility] Last Admin: 10/14/19 09:39 Dose: 50 mg Norepinephrine Bitartrate 8, (000 mcg/ Sodium Chloride) 500 mls @ 18.75 mls/hr IV TITR [facility]; Protocol Last Titration: 10/14/19 02:01 Dose: 1 mcg/min, 3.75 mls/hr Sodium Chloride (Normal Saline -) 250 mls @ 3,000 mls/hr IV PRN PRN PRN Reason: Hypotension during Dialysis Stop: 10/15/19 14:18 Ipratropium [place] (Atrovent 0.02% Nebulizer -) 1 amp NEB RQID PRN PRN Reason: Dyspnea Last Admin: 10/12/19 11:53 Dose: 1 amp Levothyroxine Sodium (Synthroid -) 75 mcg PO DAILY@0700 [facility] Last Admin: 10/14/19 06:07 Dose: 75 mcg Midodrine (Proamatine -) 10 mg PO TID-MID [facility] Last Admin: 10/14/19 09:39 Dose: 10 mg Pantoprazole Sodium (Protonix -) 40 mg PO DAILY [facility] Last Admin: 10/14/19 09:39 Dose: 40 mg Valacyclovir HCl (Valtrex -) 500 mg PO DAILY [facility] Last Admin: 10/14/19 11:30 Dose: 500 mg - Objective Vital Signs: Vital Signs Temperature 97.7 F 10/14/19 10:00 Pulse Rate 83 10/14/19 13:00 Respiratory Rate 18 10/14/19 13:00 Blood Pressure 96/53 L 10/14/19 13:00 O2 Sat by Pulse Oximetry (%) 100 10/14/19 09:00 Constitutional: Yes: Anxious Eyes: Yes: WNL HENT: Yes: WNL Neck: Yes: WNL Cardiovascular: Yes: S1, S2 Respiratory: Yes: Diminished, Tachypnea Gastrointestinal: Yes: Soft ...Rectal Exam: Yes: Deferred Genitourinary: No: Anuria Breast(s): Yes: WNL Musculoskeletal: Yes: Muscle Weakness Extremities: Yes: Cool Edema: Yes Edema: LLE: 1+, RLE: 1+ Peripheral Pulses WNL: No Peripheral Pulses: Left Doralis Pedis: 1+, Right Dorsalis Pedis: 1+ Integumentary: Yes: Venous Stasis Changes Neurological: Yes: Alert, Oriented, Weakness Psychiatric: Yes: Alert, Oriented Labs: CBC, BMP 10/14/19 05:30 10/14/19 05:30 INR, PTT INR 0.99 (0.83-1.09) 10/07/19 02:55 - ....Imaging Chest X-ray: Image Reviewed EKG: Image Reviewed Problem List - Problems (1) Weakness Code(s): R53.1 - WEAKNESS (2) ASHD (arteriosclerotic heart disease) Code(s): I25.10 - ATHSCL HEART DISEASE OF [place] CORONARY ARTERY W/O ANG PCTRS (3) Acute on chronic systolic CHF (congestive heart failure) Assessment/Plan: Pt remains on PO amiodarone; on IV Solucortef. Worsening renal parameters; pt is being prepared for hemodialysis. Code(s): I50.23 - ACUTE ON CHRONIC SYSTOLIC (CONGESTIVE) HEART FAILURE (4) Adult onset hypothyroidism Assessment/Plan: mildly elevated TSH; normal Free T4 in ICU setting. Code(s): E03.8 - OTHER SPECIFIED HYPOTHYROIDISM (5) Anxiety Code(s): F41.9 - ANXIETY DISORDER, UNSPECIFIED (6) Elevated troponin Assessment/Plan: Maximum 26.4. Now off IV heparin. On ASA, amiodarone, and atorvastatin. Code(s): R74.8 - ABNORMAL LEVELS OF OTHER SERUM ENZYMES (7) HLD (hyperlipidemia) Assessment/Plan: On statin (increase dose to 80 mg daily atorvastatin in setting of VT; LDL 107 mg/dl). Code(s): E78.5 - HYPERLIPIDEMIA, UNSPECIFIED Qualifiers: Hyperlipidemia type: unspecified Qualified Code(s): E78.5 - Hyperlipidemia , unspecified (8) History of heart artery stent Code(s): Z95.5 - PRESENCE OF CORONARY ANGIOPLASTY IMPLANT AND GRAFT (9) Multiple myeloma Assessment/Plan: Multiple myeloma; amyloidosis. 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 Code(s): C90.00 - MULTIPLE MYELOMA NOT HAVING ACHIEVED REMISSION Qualifiers: Multiple myeloma remission status: not in remission Qualified Code(s): C90.00 - Multiple myeloma not having achieved remission (10) Pancytopenia Code(s): D61.818 - OTHER PANCYTOPENIA (11) NSTEMI (non-ST elevated myocardial infarction) Assessment/Plan: see under "Acute Systolic CHF". Code(s): I21.4 - NON-ST ELEVATION (NSTEMI) MYOCARDIAL INFARCTION (12) Acute renal insufficiency Code(s): N28.9 - DISORDER OF KIDNEY AND URETER, UNSPECIFIED (13) Hypoalbuminemia Code(s): E88.09 - OTH DISORDERS OF PLASMA-PROTEIN METABOLISM, NEC (14) Hyperkalemia Assessment/Plan: 5.5--5.7-->5.4; EKG without significnant changes. Code(s): E87.5 - HYPERKALEMIA Assessment/Plan CCU time spent: 35 minutes.
[2019-10-14] MEDS: NOREPINEPHRINE BITARTRATE 8,000 MCG in SODIUM CHLORIDE 492 ML IV SCH (15:27)
--- NOTE | 2019-10-14 19:10 | PN ---
Progress Note (short form) - Note Progress Note: Patient seen and examiend Being dialyzed AFVSS Cor: RSR, No murmurs, No gallops Lungs: decreased at bases Abd: Soft, Normal bowel sounds, Ext:3+ edema Labs/Meds reviewed A/P Multiple Myeloma Amyloid CHF Anemia Fever LLL atelectasis vs infiltrate UTI Renal failure Hypotension CHF On levophed/midodrine On steroids Started HD Overall poor prognosis with cardiac and renal amyloid ongoing discussions regarding goals of care
--- NOTE | 2019-10-14 20:47 | PN ---
Progress Note, Physician Chief Complaint: Pt A&Ox3; says she feels "much, much better", without chest pain or dyspnea; asks for Benadryl "to help me get some sleep". History of Present Illness: 74 year old black female with PMH multiple myeloma, amyloidosis (s/p chemotherapy, abdomen-directed radiation Tx), HTN, HLD, CAD s/p coronary artery stenting, GERD, , ? "mild" systolic CHF (now noted severely reduced LVEF on ECHO ), on Lasix, rectal hemorrhoids, now presented to ED for diarrhea x2 days associated with generalized weakness, ROGERS. Pt reported she has had loose, watery diarrhea x2 days, and prior to that he had rectal bleeding x2 days (on toilet paper and mixed in stool) that self resolved. She reported she only noticed the bleeding because it was on the toilet paper, as she did not have abdominal or rectal pain. Pt reported generalized weakness and ROGERS, which prompted her to come to the ED. Pt denied nausea, vomiting, fever, abdominal pain, chest pain, increased LE swelling. She reported she believed her lower extremity swelling is actually improving. She also reported noticing a new "rash " to her right hip since last week. - Current Medication List Current Medications: Active Medications Acetaminophen (Tylenol -) 650 mg PO Q6H PRN PRN Reason: FEVER Last Admin: 10/07/19 21:49 Dose: 650 mg Allopurinol (Zyloprim -) 100 mg PO DAILY [facility] Last Admin: 10/14/19 09:39 Dose: 100 mg Amiodarone HCl (Cordarone -) 200 mg PO BID [facility] Last Admin: 10/14/19 09:40 Dose: 200 mg Aspirin (Ecotrin -) 81 mg PO DAILY [facility] Last Admin: 10/14/19 09:39 Dose: 81 mg Escitalopram Oxalate (Lexapro -) 10 mg PO DAILY [facility] Last Admin: 10/14/19 09:39 Dose: 10 mg Hydrocortisone Sodium Succinate (Solu-Cortef -) 50 mg IVPB Q6H-IV [facility] Last Admin: 10/14/19 15:27 Dose: 50 mg Norepinephrine Bitartrate 8, (000 mcg/ Sodium Chloride) 500 mls @ 18.75 mls/hr IV TITR [facility]; Protocol Last Titration: 10/14/19 15:50 Dose: 3 mcg/min, 11.25 mls/hr Sodium Chloride (Normal Saline -) 250 mls @ 3,000 mls/hr IV PRN PRN PRN Reason: Hypotension during Dialysis Stop: 10/15/19 14:18 Ipratropium [place] (Atrovent 0.02% Nebulizer -) 1 amp NEB RQID PRN PRN Reason: Dyspnea Last Admin: 10/12/19 11:53 Dose: 1 amp Levothyroxine Sodium (Synthroid -) 75 mcg PO DAILY@0700 [facility] Last Admin: 10/14/19 06:07 Dose: 75 mcg Midodrine (Proamatine -) 10 mg PO TID-MID [facility] Last Admin: 10/14/19 18:21 Dose: 10 mg Pantoprazole Sodium (Protonix -) 40 mg PO DAILY [facility] Last Admin: 10/14/19 09:39 Dose: 40 mg Valacyclovir HCl (Valtrex -) 500 mg PO DAILY [facility] Last Admin: 10/14/19 11:30 Dose: 500 mg - Objective Vital Signs: Vital Signs Temperature 97.8 F 10/14/19 15:00 Pulse Rate 85 10/14/19 17:41 Respiratory Rate 20 10/14/19 17:41 Blood Pressure 99/60 10/14/19 17:41 O2 Sat by Pulse Oximetry (%) 100 10/14/19 09:00 Constitutional: Yes: Calm Eyes: Yes: WNL HENT: Yes: WNL Neck: Yes: WNL Cardiovascular: Yes: S1, S2 Respiratory: Yes: Diminished ...Rectal Exam: Yes: Deferred Genitourinary: Yes: Anuria Breast(s): Yes: WNL Musculoskeletal: Yes: Muscle Weakness Extremities: Yes: Cool Edema: Yes Edema: LLE: Trace, RLE: Trace Peripheral Pulses WNL: No Peripheral Pulses: Left Doralis Pedis: 1+, Right Dorsalis Pedis: 1+ Integumentary: Yes: WNL Neurological: Yes: Alert, Oriented, Weakness Psychiatric: Yes: Alert, Oriented Labs: CBC, BMP 10/14/19 05:30 10/14/19 05:30 INR, PTT INR 0.99 (0.83-1.09) 10/07/19 02:55 Abnormal Lab Results 10/14/19 10/14/19 05:30 05:30 RBC 2.55 L Hgb 8.0 L Hct 23.9 L RDW 17.8 H Plt Count 123 L Neutrophils % 95.3 H Neutrophils % (Manual) 95.9 H Lymphocytes % 0.8 L Lymphocytes % (Manual) 0.0 L Sodium 131 L Chloride 93 L BUN 59.7 H Creatinine 3.1 H Calcium 7.5 L Phosphorus 6.2 H AST 74 H ALT 140 H Albumin 1.5 L - ....Imaging Chest X-ray: Image Reviewed EKG: Image Reviewed Other: Image Reviewed (telemetry: NSR) Problem List - Problems (1) Weakness Code(s): R53.1 - WEAKNESS (2) ASHD (arteriosclerotic heart disease) Code(s): I25.10 - ATHSCL HEART DISEASE OF [place] CORONARY ARTERY W/O ANG PCTRS (3) Acute on chronic systolic CHF (congestive heart failure) Assessment/Plan: Pt remains on PO amiodarone; on IV Solucortef. Again on norephinephrine, which is being tapered off. Undergoing 2nd cycle of hemodilysis within the past 48 hours. Code(s): I50.23 - ACUTE ON CHRONIC SYSTOLIC (CONGESTIVE) HEART FAILURE (4) Adult onset hypothyroidism Assessment/Plan: mildly elevated TSH; normal Free T4 in ICU setting. Code(s): E03.8 - OTHER SPECIFIED HYPOTHYROIDISM (5) Anxiety Code(s): F41.9 - ANXIETY DISORDER, UNSPECIFIED (6) Elevated troponin Assessment/Plan: Maximum 26.4. Now off IV heparin. On ASA, amiodarone, and atorvastatin. Code(s): R74.8 - ABNORMAL LEVELS OF OTHER SERUM ENZYMES (7) HLD (hyperlipidemia) Code(s): E78.5 - HYPERLIPIDEMIA, UNSPECIFIED Qualifiers: Hyperlipidemia type: unspecified Qualified Code(s): E78.5 - Hyperlipidemia , unspecified (8) History of heart artery stent Code(s): Z95.5 - PRESENCE OF CORONARY ANGIOPLASTY IMPLANT AND GRAFT (9) Multiple myeloma Assessment/Plan: Multiple myeloma; amyloidosis. 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 Code(s): C90.00 - MULTIPLE MYELOMA NOT HAVING ACHIEVED REMISSION Qualifiers: Multiple myeloma remission status: not in remission Qualified Code(s): C90.00 - Multiple myeloma not having achieved remission (10) Pancytopenia Assessment/Plan: f/u with hem/onc. Code(s): D61.818 - OTHER PANCYTOPENIA (11) NSTEMI (non-ST elevated myocardial infarction) Assessment/Plan: see under "Acute Systolic CHF" and "elevated Troponin"). Code(s): I21.4 - NON-ST ELEVATION (NSTEMI) MYOCARDIAL INFARCTION (12) Acute renal insufficiency Code(s): N28.9 - DISORDER OF KIDNEY AND URETER, UNSPECIFIED (13) Hypoalbuminemia Assessment/Plan: for albumin (0.9-->1.5) with hemodialysis. Code(s): E88.09 - OTH DISORDERS OF PLASMA-PROTEIN METABOLISM, NEC (14) Hyperkalemia Assessment/Plan: Now WNL after hemodialysis. Code(s): E87.5 - HYPERKALEMIA Assessment/Plan CCU time spent: 35 minutes.
[2019-10-14] MEDS: ATORVASTATIN CA 80 MG TABLET (FP) PO SCH (21:29)
--- NOTE | 2019-10-14 21:52 | PN ---
Progress Note, Physician - Current Medication List Current Medications: Active Medications Acetaminophen (Tylenol -) 650 mg PO Q6H PRN PRN Reason: FEVER Last Admin: 10/07/19 21:49 Dose: 650 mg Allopurinol (Zyloprim -) 100 mg PO DAILY [facility] Last Admin: 10/14/19 09:39 Dose: 100 mg Amiodarone HCl (Cordarone -) 200 mg PO BID [facility] Last Admin: 10/14/19 21:28 Dose: 200 mg Aspirin (Ecotrin -) 81 mg PO DAILY [facility] Last Admin: 10/14/19 09:39 Dose: 81 mg Atorvastatin Calcium (Lipitor -) 80 mg PO HS [facility] Last Admin: 10/14/19 21:29 Dose: 80 mg Escitalopram Oxalate (Lexapro -) 10 mg PO DAILY [facility] Last Admin: 10/14/19 09:39 Dose: 10 mg Hydrocortisone Sodium Succinate (Solu-Cortef -) 50 mg IVPB Q6H-IV [facility] Last Admin: 10/14/19 21:28 Dose: 50 mg Norepinephrine Bitartrate 8, (000 mcg/ Sodium Chloride) 500 mls @ 18.75 mls/hr IV TITR [facility]; Protocol Last Titration: 10/14/19 15:50 Dose: 3 mcg/min, 11.25 mls/hr Sodium Chloride (Normal Saline -) 250 mls @ 3,000 mls/hr IV PRN PRN PRN Reason: Hypotension during Dialysis Stop: 10/15/19 14:18 Ipratropium [place] (Atrovent 0.02% Nebulizer -) 1 amp NEB RQID PRN PRN Reason: Dyspnea Last Admin: 10/12/19 11:53 Dose: 1 amp Levothyroxine Sodium (Synthroid -) 75 mcg PO DAILY@0700 [facility] Last Admin: 10/14/19 06:07 Dose: 75 mcg Midodrine (Proamatine -) 10 mg PO TID-MID [facility] Last Admin: 10/14/19 18:21 Dose: 10 mg Pantoprazole Sodium (Protonix -) 40 mg PO DAILY [facility] Last Admin: 10/14/19 09:39 Dose: 40 mg Valacyclovir HCl (Valtrex -) 500 mg PO DAILY [facility] Last Admin: 10/14/19 11:30 Dose: 500 mg - Objective Vital Signs: Vital Signs Temperature 97.8 F 10/14/19 15:00 Pulse Rate 85 12/13/19 17:41 Respiratory Rate 20 10/14/19 17:41 Blood Pressure 99/60 10/14/19 17:41 O2 Sat by Pulse Oximetry (%) 99 10/14/19 20:46 Labs: CBC, BMP 10/14/19 05:30 10/14/19 05:30 INR, PTT INR 0.99 (0.83-1.09) 10/07/19 02:55 Problem List - Problems (1) Elevated troponin Code(s): R74.8 - ABNORMAL LEVELS OF OTHER SERUM ENZYMES (2) Acute on chronic systolic CHF (congestive heart failure) Code(s): I50.23 - ACUTE ON CHRONIC SYSTOLIC (CONGESTIVE) HEART FAILURE (3) Multiple myeloma Code(s): C90.00 - MULTIPLE MYELOMA NOT HAVING ACHIEVED REMISSION Qualifiers: Multiple myeloma remission status: not in remission Qualified Code(s): C90.00 - Multiple myeloma not having achieved remission (4) HLD (hyperlipidemia) Code(s): E78.5 - HYPERLIPIDEMIA, UNSPECIFIED Qualifiers: Hyperlipidemia type: unspecified Qualified Code(s): E78.5 - Hyperlipidemia , unspecified (5) Hypothyroidism Code(s): E03.9 - HYPOTHYROIDISM, UNSPECIFIED Qualifiers: Hypothyroidism type: acquired Qualified Code(s): E03.9 - Hypothyroidism, unspecified (6) CAD (coronary artery disease) Code(s): I25.10 - ATHSCL HEART DISEASE OF [place] CORONARY ARTERY W/O ANG PCTRS Qualifiers: (7) Depression Code(s): F32.9 - MAJOR DEPRESSIVE DISORDER, SINGLE EPISODE, UNSPECIFIED (8) History of heart artery stent Code(s): Z95.5 - PRESENCE OF CORONARY ANGIOPLASTY IMPLANT AND GRAFT (9) Diarrhea Code(s): R19.7 - [place], UNSPECIFIED Qualifiers: Diarrhea type: unspecified type Qualified Code(s): R19.7 - Diarrhea, unspecified (10) UTI (urinary tract infection) Code(s): N39.0 - URINARY TRACT INFECTION, SITE NOT SPECIFIED
[2019-10-15] MEDS: HYDROCORTISONE SOD SUCCINATE 100 MG/2 ML VIAL IVPB SCH ×4 (02:17→21:07)
[2019-10-15] MEDS: LEVOTHYROXINE NA 75 MCG TABLET (FP) PO SCH (06:02)
[2019-10-15] MEDS ORDERED: PT OWN MED DRAWER 7, Y5N ONE (09:22)
[2019-10-15] MEDS: ALLOPURINOL 100 MG TABLET (FP) PO SCH (09:24)
[2019-10-15] MEDS: valACYclovir HCL 500 MG TABLET (FP) PO SCH (09:24)
[2019-10-15] MEDS: ASPIRIN COATED 81 MG TABLET.EC PO SCH (09:24)
[2019-10-15] MEDS: ESCITALOPRAM OXALATE 10 MG TABLET (FP) PO SCH (09:24)
[2019-10-15] MEDS: AMIODARONE HCL 200 MG TABLET (FP) PO SCH ×2 (09:25→21:07)
[2019-10-15] MEDS: MIDODRINE HCL 5 MG TABLET PO SCH ×3 (09:25→18:36)
[2019-10-15] MEDS: PANTOPRAZOLE 40 MG TABLET (FP) PO SCH (09:25)
--- NOTE | 2019-10-15 12:27 | PN ---
Progress Note, Physician History of Present Illness: feels better breathing better on dialysis generalized edema - Current Medication List Current Medications: Active Medications Acetaminophen (Tylenol -) 650 mg PO Q6H PRN PRN Reason: FEVER Last Admin: 10/07/19 21:49 Dose: 650 mg Allopurinol (Zyloprim -) 100 mg PO DAILY [facility] Last Admin: 10/15/19 09:24 Dose: 100 mg Amiodarone HCl (Cordarone -) 200 mg PO BID [facility] Last Admin: 10/15/19 09:25 Dose: 200 mg Aspirin (Ecotrin -) 81 mg PO DAILY [facility] Last Admin: 10/15/19 09:24 Dose: 81 mg Atorvastatin Calcium (Lipitor -) 80 mg PO HS [facility] Last Admin: 10/14/19 21:29 Dose: 80 mg Escitalopram Oxalate (Lexapro -) 10 mg PO DAILY [facility] Last Admin: 10/15/19 09:24 Dose: 10 mg Hydrocortisone Sodium Succinate (Solu-Cortef -) 50 mg IVPB Q6H-IV [facility] Last Admin: 10/15/19 09:24 Dose: 50 mg Norepinephrine Bitartrate 8, (000 mcg/ Sodium Chloride) 500 mls @ 18.75 mls/hr IV TITR [facility]; Protocol Last Titration: 10/15/19 01:00 Dose: 2 mcg/min, 7.5 mls/hr Sodium Chloride (Normal Saline -) 250 mls @ 3,000 mls/hr IV PRN PRN PRN Reason: Hypotension during Dialysis Stop: 10/15/19 14:18 Levothyroxine Sodium (Synthroid -) 75 mcg PO DAILY@0700 [facility] Last Admin: 10/15/19 06:02 Dose: 75 mcg Midodrine (Proamatine -) 10 mg PO TID-MID [facility] Last Admin: 10/15/19 09:25 Dose: 10 mg Pantoprazole Sodium (Protonix -) 40 mg PO DAILY [facility] Last Admin: 10/15/19 09:25 Dose: 40 mg Valacyclovir HCl (Valtrex -) 500 mg PO DAILY [facility] Last Admin: 10/15/19 09:24 Dose: 500 mg - Objective Vital Signs: Vital Signs Temperature 98.3 F 10/15/19 10:00 Pulse Rate 86 10/15/19 10:00 Respiratory Rate 18 10/15/19 10:00 Blood Pressure 87/54 L 10/15/19 10:00 O2 Sat by Pulse Oximetry (%) 96 10/15/19 11:45 Constitutional: Yes: No Distress, Calm Cardiovascular: Yes: S1, S2 Gastrointestinal: Yes: Normal Bowel Sounds, Soft Musculoskeletal: Yes: Other Extremities: Yes: WNL Edema: LUE: 1+, RUE: 1+, LLE: 1+, RLE: 1+ Neurological: Yes: Alert, Oriented Psychiatric: Yes: Alert, Oriented Labs: CBC, BMP 10/14/19 05:30 10/14/19 05:30 INR, PTT INR 0.99 (0.83-1.09) 10/07/19 02:55 Assessment/Plan Problem List - Problems (1) Anasarca Code(s): R60.1 - GENERALIZED EDEMA (2) Fluid overload Code(s): E87.70 - FLUID OVERLOAD, UNSPECIFIED (3) Hypoxia Code(s): R09.02 - HYPOXEMIA (4) Weakness Code(s): R53.1 - WEAKNESS (5) ASHD (arteriosclerotic heart disease) Code(s): I25.10 - ATHSCL HEART DISEASE OF [place] CORONARY ARTERY W/O ANG PCTRS (6) Acute exacerbation of CHF (congestive heart failure) Code(s): I50.9 - HEART FAILURE, UNSPECIFIED (7) Acute on chronic systolic CHF (congestive heart failure) Code(s): I50.23 - ACUTE ON CHRONIC SYSTOLIC (CONGESTIVE) HEART FAILURE (8) Adult onset hypothyroidism Code(s): E03.8 - OTHER SPECIFIED HYPOTHYROIDISM (9) Anemia Code(s): D64.9 - ANEMIA, UNSPECIFIED (10) CKD (chronic kidney disease) Code(s): N18.9 - CHRONIC KIDNEY DISEASE, UNSPECIFIED (11) Elevated troponin Code(s): R74.8 - ABNORMAL LEVELS OF OTHER SERUM ENZYMES (12) HLD (hyperlipidemia) Code(s): E78.5 - HYPERLIPIDEMIA, UNSPECIFIED Qualifiers: Hyperlipidemia type: unspecified Qualified Code(s): E78.5 - Hyperlipidemia , unspecified (13) HTN (hypertension) Code(s): I10 - ESSENTIAL (PRIMARY) HYPERTENSION Qualifiers: Hypertension type: unspecified Qualified Code(s): I10 - Essential (primary ) hypertension (14) History of heart artery stent Code(s): Z95.5 - PRESENCE OF CORONARY ANGIOPLASTY IMPLANT AND GRAFT (15) Multiple myeloma Code(s): C90.00 - MULTIPLE MYELOMA NOT HAVING ACHIEVED REMISSION Qualifiers: Multiple myeloma remission status: not in remission Qualified Code(s): C90.00 - Multiple myeloma not having achieved remission uti hypotension Assessment/Plan continue current mgmt monitor bp resp support close watch will hold off on abx rest as per icu cc 35 min
--- NOTE | 2019-10-15 15:04 | PN ---
Progress Note (short form) - Note Progress Note: PULM/CCM Patient seen and examined in the ICU. Awake and alert. Off al pressors. Reports feeling better. Active Medications Acetaminophen (Tylenol -) 650 mg PO Q6H PRN PRN Reason: FEVER Last Admin: 10/07/19 21:49 Dose: 650 mg Allopurinol (Zyloprim -) 100 mg PO DAILY [facility] Last Admin: 10/15/19 09:24 Dose: 100 mg Amiodarone HCl (Cordarone -) 200 mg PO BID [facility] Last Admin: 10/15/19 09:25 Dose: 200 mg Aspirin (Ecotrin -) 81 mg PO DAILY [facility] Last Admin: 10/15/19 09:24 Dose: 81 mg Atorvastatin Calcium (Lipitor -) 80 mg PO HS [facility] Last Admin: 10/14/19 21:29 Dose: 80 mg Escitalopram Oxalate (Lexapro -) 10 mg PO DAILY [facility] Last Admin: 10/15/19 09:24 Dose: 10 mg Hydrocortisone Sodium Succinate (Solu-Cortef -) 50 mg IVPB Q6H-IV [facility] Last Admin: 10/15/19 14:31 Dose: 50 mg Norepinephrine Bitartrate 8, (000 mcg/ Sodium Chloride) 500 mls @ 18.75 mls/hr IV TITR [facility]; Protocol Last Titration: 10/15/19 01:00 Dose: 2 mcg/min, 7.5 mls/hr Levothyroxine Sodium (Synthroid -) 75 mcg PO DAILY@0700 [facility] Last Admin: 10/15/19 06:02 Dose: 75 mcg Midodrine (Proamatine -) 10 mg PO TID-MID [facility] Last Admin: 10/15/19 14:31 Dose: 10 mg Pantoprazole Sodium (Protonix -) 40 mg PO DAILY [facility] Last Admin: 10/15/19 09:25 Dose: 40 mg Valacyclovir HCl (Valtrex -) 500 mg PO DAILY [facility] Last Admin: 10/15/19 09:24 Dose: 500 mg Vital Signs Period Temp Pulse Resp BP Sys/Moss Pulse Ox Last 24 Hr 97.9 F-98.5 F 83-99 16-24 87-113/51-66 93-99 Intake & Output 10/12/19 10/13/19 10/14/19 10/15/19 23:59 23:59 23:59 23:59 Intake Total 229 560 720 90 Output Total 50 0550 3435 90 Balance 414 -2517 -2399 0 Weight 80.513 kg 81.057 kg 75.977 kg 73.527 kg Gen: CA+OX3 in bed, NAD Heart: nml S1, S2, RR Lung: decreased breath sounds at the bases Abd: soft, nontender Ext: + edema CBC, BMP 10/14/19 05:30 10/14/19 05:30 Microbiology 09/20/19 04:16 Blood - Peripheral Venous Blood Culture - Final NO GROWTH AFTER 5 DAYS INCUBATION 09/20/19 06:26 Urine - Urine Clean Catch Urine Culture - Final Strep Agalactiae Group B CXR 10/14: R IJ Trialysis, cardiomegaly, Lungs are wet (My Read). ASSESSMENT AND PLAN: Acute on Chronic Systolic Heart Failure Cardiogenic Shock Acute on Chronic Renal Failure CAD Acute NSTEMI Paroxysmal Atrial Fibrillation Pneumonia Asthma Multiple Myeloma HTN Hyperlipidemia Hypothyroidism Anemia Hyponatremia - O2 to keep SpO2 >90% - Can use Pressors prn - Lasix gtt per renal - monitor urine output, creatinine - HD per Renal - daily weights - amiodarone - Normal Transfusion thresholds - completed antibiotics - inhaled bronchodilators as needed - continue empiric hydrocortisone - DVT prophylaxis - continue ICU monitoring - poor overall prognosis, continue discussions regarding goals of care - transfer to [facility] ICU PULM/CCM
--- NOTE | 2019-10-15 17:48 | PN ---
Progress Note, Physician History of Present Illness: Pt seen and examined at bedside. She is awake and alert. She feels that her breathing is improved. - Current Medication List Current Medications: Active Medications Acetaminophen (Tylenol -) 650 mg PO Q6H PRN PRN Reason: FEVER Last Admin: 10/07/19 21:49 Dose: 650 mg Allopurinol (Zyloprim -) 100 mg PO DAILY [facility] Last Admin: 10/15/19 09:24 Dose: 100 mg Amiodarone HCl (Cordarone -) 200 mg PO BID [facility] Last Admin: 10/15/19 09:25 Dose: 200 mg Aspirin (Ecotrin -) 81 mg PO DAILY [facility] Last Admin: 10/15/19 09:24 Dose: 81 mg Atorvastatin Calcium (Lipitor -) 80 mg PO HS [facility] Last Admin: 10/14/19 21:29 Dose: 80 mg Escitalopram Oxalate (Lexapro -) 10 mg PO DAILY [facility] Last Admin: 10/15/19 09:24 Dose: 10 mg Hydrocortisone Sodium Succinate (Solu-Cortef -) 50 mg IVPB Q6H-IV [facility] Last Admin: 10/15/19 14:31 Dose: 50 mg Norepinephrine Bitartrate 8, (000 mcg/ Sodium Chloride) 500 mls @ 18.75 mls/hr IV TITR [facility]; Protocol Last Titration: 10/15/19 01:00 Dose: 2 mcg/min, 7.5 mls/hr Levothyroxine Sodium (Synthroid -) 75 mcg PO DAILY@0700 [facility] Last Admin: 10/15/19 06:02 Dose: 75 mcg Midodrine (Proamatine -) 10 mg PO TID-MID [facility] Last Admin: 10/15/19 14:31 Dose: 10 mg Pantoprazole Sodium (Protonix -) 40 mg PO DAILY [facility] Last Admin: 10/15/19 09:25 Dose: 40 mg Valacyclovir HCl (Valtrex -) 500 mg PO DAILY [facility] Last Admin: 10/15/19 09:24 Dose: 500 mg - Objective Vital Signs: Vital Signs Temperature 98.5 F 10/15/19 14:00 Pulse Rate 91 H 10/15/19 16:00 Respiratory Rate 18 10/15/19 16:00 Blood Pressure 104/66 10/15/19 16:00 O2 Sat by Pulse Oximetry (%) 94 L 12/14/19 16:33 Constitutional: Yes: Calm Eyes: Yes: Conjunctiva Clear HENT: Yes: Atraumatic Cardiovascular: Yes: S1, S2 Respiratory: Yes: On Nasal O2 Gastrointestinal: Yes: Soft Genitourinary: Yes: Cabrera Present, Oliguria Musculoskeletal: Yes: Muscle Weakness Edema: Yes Edema: LLE: 2+, RLE: 2+ Neurological: Yes: Oriented Psychiatric: Yes: Oriented Labs: CBC, BMP 10/14/19 05:30 10/14/19 05:30 INR, PTT INR 0.99 (0.83-1.09) 10/07/19 02:55 Problem List - Problems (1) Fluid overload Code(s): E87.70 - FLUID OVERLOAD, UNSPECIFIED (2) CKD (chronic kidney disease) Code(s): N18.9 - CHRONIC KIDNEY DISEASE, UNSPECIFIED Assessment/Plan Current Medications Generic Name Dose Route Start Last Admin Trade Name Freq PRN Reason Stop Dose Admin Acetaminophen 650 mg 09/20/19 22:25 10/07/19 21:49 Tylenol - PO 650 mg Q6H PRN Administration FEVER Allopurinol 100 mg 10/10/19 13:49 10/15/19 09:24 Zyloprim - PO 100 mg DAILY [facility] Administration Amiodarone HCl 200 mg 10/11/19 12:54 10/15/19 09:25 Cordarone - PO 200 mg BID [facility] Administration Aspirin 81 mg 09/25/19 10:00 10/15/19 09:24 Ecotrin - PO 81 mg DAILY [facility] Administration Atorvastatin Calcium 80 mg 10/14/19 22:00 10/14/19 21:29 Lipitor - PO 80 mg HS [facility] Administration Escitalopram Oxalate 10 mg 09/21/19 10:00 10/15/19 09:24 Lexapro - PO 10 mg DAILY [facility] Administration Hydrocortisone Sodium Succinate 50 mg 10/07/19 16:00 10/15/19 14:31 Solu-Cortef - IVPB 50 mg Q6H-IV [facility] Administration Norepinephrine Bitartrate 8, 500 mls @ 18.75 mls/hr 10/11/19 11:00 10/15/19 01:00 000 mcg/ Sodium Chloride IV 2 mcg/min TITR [facility] 7.5 mls/hr Titration Protocol 5 MCG/MIN Levothyroxine Sodium 75 mcg 09/21/19 07:00 10/15/19 06:02 Synthroid - PO 75 mcg DAILY@0700 [facility] Administration Midodrine 10 mg 10/06/19 18:00 10/15/19 14:31 Proamatine - PO 10 mg TID-MID [facility] Administration Pantoprazole Sodium 40 mg 09/21/19 10:00 10/15/19 09:25 Protonix - PO 40 mg DAILY [facility] Administration Valacyclovir HCl 500 mg 09/21/19 10:00 10/15/19 09:24 Valtrex - PO 500 mg DAILY [facility] Administration Impression 1. proteinuria 2. multiple myeloma 3. amyloid 4. dizziness 5. hypotension 6. HLD 7. hypothyroidism 8. anemia 9. CKD 10. fluid overload 11. hypotension 12. hyperkalemia 13. nstemi 14. DEBBIE Plan - pt toleratd HD last night - check cmp - next HD likely on Thursday - monitor urine output - can give lasix tomorrow to see if it helps with urine output - cont pressors - prognosis is poor
[2019-10-15] MEDS: NOREPINEPHRINE BITARTRATE 8,000 MCG in SODIUM CHLORIDE 492 ML IV SCH (17:55)
--- NOTE | 2019-10-15 18:14 | PN ---
Progress Note (short form) - Note Progress Note: Patient seen and examiend S: Denies pain or other complaints Last Vital Signs Temp Pulse Resp BP Pulse Ox 98.5 F 70 18 106/61 94 L 10/15/19 14:00 10/15/19 17:55 10/15/19 16:00 10/15/19 17:55 10/15/19 16:33 AFVSS Cor: RSR, No murmurs, No gallops Lungs: decreased at bases Abd: Soft, Normal bowel sounds, Ext:3+ edema CBC, BMP 10/14/19 05:30 10/14/19 05:30 Current Medications Generic Name Dose Route Start Last Admin Trade Name Freq PRN Reason Stop Dose Admin Acetaminophen 650 mg 09/20/19 22:25 10/07/19 21:49 Tylenol - PO 650 mg Q6H PRN Administration FEVER Allopurinol 100 mg 10/10/19 13:49 10/15/19 09:24 Zyloprim - PO 100 mg DAILY [facility] Administration Amiodarone HCl 200 mg 10/11/19 12:54 10/15/19 09:25 Cordarone - PO 200 mg BID [facility] Administration Aspirin 81 mg 09/25/19 10:00 10/15/19 09:24 Ecotrin - PO 81 mg DAILY [facility] Administration Atorvastatin Calcium 80 mg 10/14/19 22:00 10/14/19 21:29 Lipitor - PO 80 mg HS [facility] Administration Escitalopram Oxalate 10 mg 09/21/19 10:00 10/15/19 09:24 Lexapro - PO 10 mg DAILY [facility] Administration Hydrocortisone Sodium Succinate 50 mg 10/07/19 16:00 10/15/19 14:31 Solu-Cortef - IVPB 50 mg Q6H-IV [facility] Administration Norepinephrine Bitartrate 8, 500 mls @ 18.75 mls/hr 10/11/19 11:00 10/15/19 17:55 000 mcg/ Sodium Chloride IV 2 mcg/min TITR [facility] 7.5 mls/hr Administration Protocol 5 MCG/MIN Levothyroxine Sodium 75 mcg 09/21/19 07:00 10/15/19 06:02 Synthroid - PO 75 mcg DAILY@0700 [facility] Administration Midodrine 10 mg 10/06/19 18:00 10/15/19 14:31 Proamatine - PO 10 mg TID-MID [facility] Administration Pantoprazole Sodium 40 mg 09/21/19 10:00 10/15/19 09:25 Protonix - PO 40 mg DAILY [facility] Administration Valacyclovir HCl 500 mg 09/21/19 10:00 10/15/19 09:24 Valtrex - PO 500 mg DAILY [facility] Administration A/P Multiple Myeloma Amyloid CHF Anemia Fever LLL atelectasis vs infiltrate UTI Renal failure Hypotension CHF On levophed/midodrine On steroids Started HD Overall poor prognosis with cardiac and renal amyloid ongoing discussions regarding goals of care
[2019-10-15] MEDS: ATORVASTATIN CA 80 MG TABLET (FP) PO SCH (21:07)
--- NOTE | 2019-10-15 23:45 | PN ---
Progress Note, Physician - Current Medication List Current Medications: Active Medications Acetaminophen (Tylenol -) 650 mg PO Q6H PRN PRN Reason: FEVER Last Admin: 10/07/19 21:49 Dose: 650 mg Allopurinol (Zyloprim -) 100 mg PO DAILY [facility] Last Admin: 10/15/19 09:24 Dose: 100 mg Amiodarone HCl (Cordarone -) 200 mg PO BID [facility] Last Admin: 10/15/19 21:07 Dose: 200 mg Aspirin (Ecotrin -) 81 mg PO DAILY [facility] Last Admin: 10/15/19 09:24 Dose: 81 mg Atorvastatin Calcium (Lipitor -) 80 mg PO HS [facility] Last Admin: 10/15/19 21:07 Dose: 80 mg Escitalopram Oxalate (Lexapro -) 10 mg PO DAILY [facility] Last Admin: 10/15/19 09:24 Dose: 10 mg Hydrocortisone Sodium Succinate (Solu-Cortef -) 50 mg IVPB Q6H-IV [facility] Last Admin: 10/15/19 21:07 Dose: 50 mg Norepinephrine Bitartrate 8, (000 mcg/ Sodium Chloride) 500 mls @ 18.75 mls/hr IV TITR [facility]; Protocol Last Admin: 10/15/19 17:55 Dose: 2 mcg/min, 7.5 mls/hr Levothyroxine Sodium (Synthroid -) 75 mcg PO DAILY@0700 [facility] Last Admin: 10/15/19 06:02 Dose: 75 mcg Midodrine (Proamatine -) 10 mg PO TID-MID [facility] Last Admin: 10/15/19 18:36 Dose: 10 mg Pantoprazole Sodium (Protonix -) 40 mg PO DAILY [facility] Last Admin: 10/15/19 09:25 Dose: 40 mg Valacyclovir HCl (Valtrex -) 500 mg PO DAILY [facility] Last Admin: 10/15/19 09:24 Dose: 500 mg - Objective Vital Signs: Vital Signs Temperature 98.1 F 10/15/19 22:00 Pulse Rate 84 10/15/19 22:00 Respiratory Rate 18 10/15/19 22:00 Blood Pressure 101/65 10/15/19 22:00 O2 Sat by Pulse Oximetry (%) 93 L 10/15/19 20:24 Labs: CBC, BMP 10/14/19 05:30 10/14/19 05:30 INR, PTT INR 0.99 (0.83-1.09) 10/07/19 02:55 Problem List - Problems (1) Elevated troponin Code(s): R74.8 - ABNORMAL LEVELS OF OTHER SERUM ENZYMES (2) Acute on chronic systolic CHF (congestive heart failure) Code(s): I50.23 - ACUTE ON CHRONIC SYSTOLIC (CONGESTIVE) HEART FAILURE (3) Multiple myeloma Code(s): C90.00 - MULTIPLE MYELOMA NOT HAVING ACHIEVED REMISSION Qualifiers: Multiple myeloma remission status: not in remission Qualified Code(s): C90.00 - Multiple myeloma not having achieved remission (4) HLD (hyperlipidemia) Code(s): E78.5 - HYPERLIPIDEMIA, UNSPECIFIED Qualifiers: Hyperlipidemia type: unspecified Qualified Code(s): E78.5 - Hyperlipidemia , unspecified (5) Hypothyroidism Code(s): E03.9 - HYPOTHYROIDISM, UNSPECIFIED Qualifiers: Hypothyroidism type: acquired Qualified Code(s): E03.9 - Hypothyroidism, unspecified (6) CAD (coronary artery disease) Code(s): I25.10 - ATHSCL HEART DISEASE OF [place] CORONARY ARTERY W/O ANG PCTRS Qualifiers: (7) Depression Code(s): F32.9 - MAJOR DEPRESSIVE DISORDER, SINGLE EPISODE, UNSPECIFIED (8) History of heart artery stent Code(s): Z95.5 - PRESENCE OF CORONARY ANGIOPLASTY IMPLANT AND GRAFT (9) Diarrhea Code(s): R19.7 - DIARRHEA, UNSPECIFIED Qualifiers: Diarrhea type: unspecified type Qualified Code(s): R19.7 - Diarrhea, unspecified (10) UTI (urinary tract infection) Code(s): N39.0 - URINARY TRACT INFECTION, SITE NOT SPECIFIED
[2019-10-16] MEDS: HYDROCORTISONE SOD SUCCINATE 100 MG/2 ML VIAL IVPB SCH ×4 (02:39→21:14)
[2019-10-16] MEDS: LEVOTHYROXINE NA 75 MCG TABLET (FP) PO SCH (06:02)
[2019-10-16 06:39] LABS: HEMOGLOBIN 7.5 GM/dL (10.7-15.3); MCH 32.1 pg (25.7-33.7); MEAN CELL VOLUME 94.5 fl (80-96); MEAN PLT VOLUME 9.3 fl (7.5-11.1); PLATELET COUNT 116 K/MM3 (134-434); RBC 2.33 M/mm3 (3.60-5.2); RDW 18.3 % (11.6-15.6); WHITE BLOOD COUNT 6.2 K/mm3 (4.0-10.0)
[2019-10-16 06:59] LABS: ALBUMIN 1.6 g/dl (3.4-5.0); BILIRUBIN,TOTAL 0.3 mg/dL (0.2-1); BLOOD UREA NITROGEN 45.3 mg/dL (7-18); POTASSIUM 4.4 mmol/L (3.5-5.1); TOT PROT 6.5 g/dl (6.4-8.2)
--- NOTE | 2019-10-16 08:55 | PN ---
Progress Note, Physician History of Present Illness: stable improving - Current Medication List Current Medications: Active Medications Acetaminophen (Tylenol -) 650 mg PO Q6H PRN PRN Reason: FEVER Last Admin: 10/07/19 21:49 Dose: 650 mg Allopurinol (Zyloprim -) 100 mg PO DAILY [facility] Last Admin: 10/15/19 09:24 Dose: 100 mg Amiodarone HCl (Cordarone -) 200 mg PO BID [facility] Last Admin: 10/15/19 21:07 Dose: 200 mg Aspirin (Ecotrin -) 81 mg PO DAILY [facility] Last Admin: 10/15/19 09:24 Dose: 81 mg Atorvastatin Calcium (Lipitor -) 80 mg PO HS [facility] Last Admin: 10/15/19 21:07 Dose: 80 mg Escitalopram Oxalate (Lexapro -) 10 mg PO DAILY [facility] Last Admin: 10/15/19 09:24 Dose: 10 mg Hydrocortisone Sodium Succinate (Solu-Cortef -) 50 mg IVPB Q6H-IV [facility] Last Admin: 10/16/19 02:39 Dose: 50 mg Norepinephrine Bitartrate 8, (000 mcg/ Sodium Chloride) 500 mls @ 18.75 mls/hr IV TITR [facility]; Protocol Last Titration: 10/16/19 02:30 Dose: 0 mcg/min, 0 mls/hr Levothyroxine Sodium (Synthroid -) 75 mcg PO DAILY@0700 [facility] Last Admin: 10/16/19 06:02 Dose: 75 mcg Midodrine (Proamatine -) 10 mg PO TID-MID [facility] Last Admin: 10/15/19 18:36 Dose: 10 mg Pantoprazole Sodium (Protonix -) 40 mg PO DAILY [facility] Last Admin: 10/15/19 09:25 Dose: 40 mg Valacyclovir HCl (Valtrex -) 500 mg PO DAILY [facility] Last Admin: 10/15/19 09:24 Dose: 500 mg - Objective Vital Signs: Vital Signs Temperature 98 F 10/16/19 06:00 Pulse Rate 77 10/16/19 08:00 Respiratory Rate 21 H 10/16/19 08:00 Blood Pressure 88/54 L 10/16/19 08:00 O2 Sat by Pulse Oximetry (%) 96 10/16/19 08:10 Constitutional: Yes: No Distress, Calm HENT: Yes: Other (dialysis catheter rt side of the neck) Cardiovascular: Yes: S1, S2 Respiratory: Yes: Regular, CTA Bilaterally Gastrointestinal: Yes: Normal Bowel Sounds, Soft Musculoskeletal: Yes: WNL Extremities: Yes: WNL Neurological: Yes: Alert, Oriented Psychiatric: Yes: Alert, Oriented Labs: CBC, BMP 10/16/19 06:00 10/16/19 06:00 INR, PTT INR 0.99 (0.83-1.09) 10/07/19 02:55 Assessment/Plan Problem List - Problems (1) Anasarca Code(s): R60.1 - GENERALIZED EDEMA (2) Fluid overload Code(s): E87.70 - FLUID OVERLOAD, UNSPECIFIED (3) Hypoxia Code(s): R09.02 - HYPOXEMIA (4) Weakness Code(s): R53.1 - WEAKNESS (5) ASHD (arteriosclerotic heart disease) Code(s): I25.10 - ATHSCL HEART DISEASE OF [place] CORONARY ARTERY W/O ANG PCTRS (6) Acute exacerbation of CHF (congestive heart failure) Code(s): I50.9 - HEART FAILURE, UNSPECIFIED (7) Acute on chronic systolic CHF (congestive heart failure) Code(s): I50.23 - ACUTE ON CHRONIC SYSTOLIC (CONGESTIVE) HEART FAILURE (8) Adult onset hypothyroidism Code(s): E03.8 - OTHER SPECIFIED HYPOTHYROIDISM (9) Anemia Code(s): D64.9 - ANEMIA, UNSPECIFIED (10) CKD (chronic kidney disease) Code(s): N18.9 - CHRONIC KIDNEY DISEASE, UNSPECIFIED (11) Elevated troponin Code(s): R74.8 - ABNORMAL LEVELS OF OTHER SERUM ENZYMES (12) HLD (hyperlipidemia) Code(s): E78.5 - HYPERLIPIDEMIA, UNSPECIFIED Qualifiers: Hyperlipidemia type: unspecified Qualified Code(s): E78.5 - Hyperlipidemia , unspecified (13) HTN (hypertension) Code(s): I10 - ESSENTIAL (PRIMARY) HYPERTENSION Qualifiers: Hypertension type: unspecified Qualified Code(s): I10 - Essential (primary ) hypertension (14) History of heart artery stent Code(s): Z95.5 - PRESENCE OF CORONARY ANGIOPLASTY IMPLANT AND GRAFT (15) Multiple myeloma Code(s): C90.00 - MULTIPLE MYELOMA NOT HAVING ACHIEVED REMISSION Qualifiers: Multiple myeloma remission status: not in remission Qualified Code(s): C90.00 - Multiple myeloma not having achieved remission uti hypotension Assessment/Plan continue current mgmt monitor bp resp support close watch will hold off on abx rest as per icu cc 35 min
[2019-10-16] MEDS ORDERED: PT OWN MED DRAWER 7, Y5N ONE (09:12)
[2019-10-16] MEDS: AMIODARONE HCL 200 MG TABLET (FP) PO SCH ×2 (09:24→21:14)
[2019-10-16] MEDS: ALLOPURINOL 100 MG TABLET (FP) PO SCH (09:24)
[2019-10-16] MEDS: PANTOPRAZOLE 40 MG TABLET (FP) PO SCH (09:24)
[2019-10-16] MEDS: MIDODRINE HCL 5 MG TABLET PO SCH ×3 (09:24→17:47)
[2019-10-16] MEDS: valACYclovir HCL 500 MG TABLET (FP) PO SCH (09:24)
[2019-10-16] MEDS: ASPIRIN COATED 81 MG TABLET.EC PO SCH (09:24)
[2019-10-16] MEDS: ESCITALOPRAM OXALATE 10 MG TABLET (FP) PO SCH (09:24)
--- NOTE | 2019-10-16 10:59 | PN ---
Progress Note (short form) - Note Progress Note: Seen and examined in the ICU BP stable off pressors tolerated iHD Current Medications Acetaminophen (Tylenol -) 650 mg PO Q6H PRN PRN Reason: FEVER Last Admin: 10/07/19 21:49 Dose: 650 mg Allopurinol (Zyloprim -) 100 mg PO DAILY [facility] Last Admin: 10/16/19 09:24 Dose: 100 mg Amiodarone HCl (Cordarone -) 200 mg PO BID [facility] Last Admin: 10/16/19 09:24 Dose: 200 mg Aspirin (Ecotrin -) 81 mg PO DAILY [facility] Last Admin: 10/16/19 09:24 Dose: 81 mg Atorvastatin Calcium (Lipitor -) 80 mg PO HS [facility] Last Admin: 10/15/19 21:07 Dose: 80 mg Escitalopram Oxalate (Lexapro -) 10 mg PO DAILY [facility] Last Admin: 10/16/19 09:24 Dose: 10 mg Hydrocortisone Sodium Succinate (Solu-Cortef -) 50 mg IVPB Q6H-IV [facility] Last Admin: 10/16/19 09:24 Dose: 50 mg Norepinephrine Bitartrate 8, (000 mcg/ Sodium Chloride) 500 mls @ 18.75 mls/hr IV TITR [facility]; Protocol Last Titration: 10/16/19 02:30 Dose: 0 mcg/min, 0 mls/hr Levothyroxine Sodium (Synthroid -) 75 mcg PO DAILY@0700 [facility] Last Admin: 10/16/19 06:02 Dose: 75 mcg Midodrine (Proamatine -) 10 mg PO TID-MID [facility] Last Admin: 10/16/19 09:24 Dose: 10 mg Pantoprazole Sodium (Protonix -) 40 mg PO DAILY [facility] Last Admin: 10/16/19 09:24 Dose: 40 mg Valacyclovir HCl (Valtrex -) 500 mg PO DAILY [facility] Last Admin: 10/16/19 09:24 Dose: 500 mg Vital Signs Period Temp Pulse Resp BP Sys/Moss Pulse Ox Last 24 Hr 98 F-98.5 F 70-99 14-25 87-113/47-66 93-96 Intake & Output 10/13/19 10/14/19 10/15/19 10/16/19 23:59 23:59 23:59 23:59 Intake Total 560 720 680 28 Output Total 1900 2825 135 60 Balance -1340 -2105 545 -32 Weight 81.057 kg 75.977 kg 73.527 kg 74.435 kg Exam: General: HEENT: Pulm: CV: Abd: Ext: Neuro: CBC, BMP 10/16/19 06:00 10/16/19 06:00 Microbiology 09/20/19 04:16 Blood - Peripheral Venous Blood Culture - Final NO GROWTH AFTER 5 DAYS INCUBATION 09/20/19 06:26 Urine - Urine Clean Catch Urine Culture - Final Strep Agalactiae Group B ASSESSMENT AND PLAN: Acute on Chronic Systolic Heart Failure Cardiogenic Shock Acute on Chronic Renal Failure CAD Acute NSTEMI Paroxysmal Atrial Fibrillation Pneumonia Asthma Multiple Myeloma HTN Hyperlipidemia Hypothyroidism Anemia Hyponatremia - O2 to keep SpO2 >90% - Can use Pressors prn, goal MAP >55 - monitor urine output, creatinine - HD per Renal - daily weights - amiodarone - Normal Transfusion thresholds - completed antibiotics, ID following - inhaled bronchodilators as needed - continue empiric hydrocortisone - DVT prophylaxis - continue ICU monitoring - poor overall prognosis, continue discussions regarding goals of care - transfer to [facility] Pulm/CCM CCT: 40 <Donald Wu - Last Filed: 10/16/19 10:56> - Note Progress Note: Gen: CA+OX3 in bed, NAD Heart: nml S1, S2, RR Lung: decreased breath sounds at the bases Abd: soft, nontender Ext: + edema <Solomon Franco - Last Filed: 10/16/19 18:46>
--- NOTE | 2019-10-16 17:45 | PN ---
Progress Note, Physician History of Present Illness: Pt seen and examined at bedside. She is awake and alert. She feels breathing is comfortable. - Current Medication List Current Medications: Active Medications Acetaminophen (Tylenol -) 650 mg PO Q6H PRN PRN Reason: FEVER Last Admin: 10/07/19 21:49 Dose: 650 mg Allopurinol (Zyloprim -) 100 mg PO DAILY REPLACED BY [facility] Last Admin: 10/16/19 09:24 Dose: 100 mg Amiodarone HCl (Cordarone -) 200 mg PO BID REPLACED BY [facility] Last Admin: 10/16/19 09:24 Dose: 200 mg Aspirin (Ecotrin -) 81 mg PO DAILY REPLACED BY [facility] Last Admin: 10/16/19 09:24 Dose: 81 mg Atorvastatin Calcium (Lipitor -) 80 mg PO HS REPLACED BY [facility] Last Admin: 10/15/19 21:07 Dose: 80 mg Escitalopram Oxalate (Lexapro -) 10 mg PO DAILY REPLACED BY [facility] Last Admin: 10/16/19 09:24 Dose: 10 mg Hydrocortisone Sodium Succinate (Solu-Cortef -) 50 mg IVPB Q6H-IV REPLACED BY [facility] Last Admin: 10/16/19 14:34 Dose: 50 mg Norepinephrine Bitartrate 8, (000 mcg/ Sodium Chloride) 500 mls @ 18.75 mls/hr IV TITR [facility]; Protocol Last Titration: 10/16/19 02:30 Dose: 0 mcg/min, 0 mls/hr Levothyroxine Sodium (Synthroid -) 75 mcg PO DAILY@0700 REPLACED BY [facility] Last Admin: 10/16/19 06:02 Dose: 75 mcg Midodrine (Proamatine -) 10 mg PO TID-MID REPLACED BY [facility] Last Admin: 10/16/19 14:34 Dose: 10 mg Pantoprazole Sodium (Protonix -) 40 mg PO DAILY REPLACED BY [facility] Last Admin: 10/16/19 09:24 Dose: 40 mg Valacyclovir HCl (Valtrex -) 500 mg PO DAILY REPLACED BY [facility] Last Admin: 10/16/19 09:24 Dose: 500 mg - Objective Vital Signs: Vital Signs Temperature 98.4 F 10/16/19 16:00 Pulse Rate 79 10/16/19 16:00 Respiratory Rate 22 H 10/16/19 16:00 Blood Pressure 93/56 L 10/16/19 16:00 O2 Sat by Pulse Oximetry (%) 96 10/16/19 08:30 Constitutional: Yes: Calm Cardiovascular: Yes: S1, S2 Respiratory: Yes: On Nasal O2 Gastrointestinal: Yes: Normal Bowel Sounds, Soft Genitourinary: Yes: [place] Present, Oliguria Musculoskeletal: Yes: Muscle Weakness Extremities: Yes: WNL Edema: Yes Edema: LLE: 2+, RLE: 2+ Neurological: Yes: Oriented Psychiatric: Yes: Oriented Labs: CBC, BMP 10/16/19 06:00 10/16/19 06:00 INR, PTT INR 0.99 (0.83-1.09) 10/07/19 02:55 Problem List - Problems (1) Fluid overload Code(s): E87.70 - FLUID OVERLOAD, UNSPECIFIED (2) CKD (chronic kidney disease) Code(s): N18.9 - CHRONIC KIDNEY DISEASE, UNSPECIFIED Assessment/Plan Current Medications Generic Name Dose Route Start Last Admin Trade Name Freq PRN Reason Stop Dose Admin Acetaminophen 650 mg 09/20/19 22:25 10/07/19 21:49 Tylenol - PO 650 mg Q6H PRN Administration FEVER Allopurinol 100 mg 10/10/19 13:49 10/16/19 09:24 Zyloprim - PO 100 mg DAILY [facility] Administration Amiodarone HCl 200 mg 10/11/19 12:54 10/16/19 09:24 Cordarone - PO 200 mg BID [facility] Administration Aspirin 81 mg 09/25/19 10:00 10/16/19 09:24 Ecotrin - PO 81 mg DAILY [facility] Administration Atorvastatin Calcium 80 mg 10/14/19 22:00 10/15/19 21:07 Lipitor - PO 80 mg HS [facility] Administration Escitalopram Oxalate 10 mg 09/21/19 10:00 10/16/19 09:24 Lexapro - PO 10 mg DAILY [facility] Administration Hydrocortisone Sodium Succinate 50 mg 10/07/19 16:00 10/16/19 14:34 Solu-Cortef - IVPB 50 mg Q6H-IV [facility] Administration Norepinephrine Bitartrate 8, 500 mls @ 18.75 mls/hr 10/11/19 11:00 10/16/19 02:30 000 mcg/ Sodium Chloride IV 0 mcg/min TITR [facility] 0 mls/hr Titration Protocol 5 MCG/MIN Levothyroxine Sodium 75 mcg 09/21/19 07:00 10/16/19 06:02 Synthroid - PO 75 mcg DAILY@0700 [facility] Administration Midodrine 10 mg 10/06/19 18:00 10/16/19 14:34 Proamatine - PO 10 mg TID-MID [facility] Administration Pantoprazole Sodium 40 mg 09/21/19 10:00 10/16/19 09:24 Protonix - PO 40 mg DAILY [facility] Administration Valacyclovir HCl 500 mg 09/21/19 10:00 10/16/19 09:24 Valtrex - PO 500 mg DAILY [facility] Administration Impression 1. proteinuria 2. multiple myeloma 3. amyloid 4. dizziness 5. hypotension 6. HLD 7. hypothyroidism 8. anemia 9. CKD 10. fluid overload 11. hypotension 12. hyperkalemia 13. nstemi 14. DEBBIE Plan - HD tomorrow - cmp reviewed - pt remain oliguric - monitor hg - will hold off lasix as she is hypotensive - cont pressors - prognosis is poor
--- NOTE | 2019-10-16 18:42 | PN ---
Progress Note (short form) - Note Progress Note: Patient seen and examiend S: Denies pain or other complaints Last Vital Signs Temp Pulse Resp BP Pulse Ox 98.4 F 76 18 89/52 L 96 10/16/19 18:00 10/16/19 18:00 10/16/19 18:00 10/16/19 18:00 10/16/19 08:30 AFVSS Cor: RSR, No murmurs, No gallops Lungs: decreased at bases Abd: Soft, Normal bowel sounds, Ext:3+ edema 10/16/19 06:00 10/16/19 06:00 Current Medications Acetaminophen (Tylenol -) 650 mg PO Q6H PRN PRN Reason: FEVER Last Admin: 10/07/19 21:49 Dose: 650 mg Albumin Human (Albumin Human 25%) 12.5 gm IVPB Q30M [facility] Allopurinol (Zyloprim -) 100 mg PO DAILY [facility] Last Admin: 10/16/19 09:24 Dose: 100 mg Amiodarone HCl (Cordarone -) 200 mg PO BID [facility] Last Admin: 10/16/19 09:24 Dose: 200 mg Aspirin (Ecotrin -) 81 mg PO DAILY [facility] Last Admin: 10/16/19 09:24 Dose: 81 mg Atorvastatin Calcium (Lipitor -) 80 mg PO HS [facility] Last Admin: 10/15/19 21:07 Dose: 80 mg Escitalopram Oxalate (Lexapro -) 10 mg PO DAILY [facility] Last Admin: 10/16/19 09:24 Dose: 10 mg Hydrocortisone Sodium Succinate (Solu-Cortef -) 50 mg IVPB Q6H-IV [facility] Last Admin: 10/16/19 14:34 Dose: 50 mg Norepinephrine Bitartrate 8, (000 mcg/ Sodium Chloride) 500 mls @ 18.75 mls/hr IV TITR [facility]; Protocol Last Titration: 10/16/19 02:30 Dose: 0 mcg/min, 0 mls/hr Sodium Chloride (Normal Saline -) 250 mls @ 3,000 mls/hr IV PRN PRN PRN Reason: Hypotension during Dialysis Stop: 10/17/19 17:47 Levothyroxine Sodium (Synthroid -) 75 mcg PO DAILY@0700 [facility] Last Admin: 10/16/19 06:02 Dose: 75 mcg Midodrine (Proamatine -) 10 mg PO TID-MID [facility] Last Admin: 10/16/19 17:47 Dose: 10 mg Pantoprazole Sodium (Protonix -) 40 mg PO DAILY [facility] Last Admin: 10/16/19 09:24 Dose: 40 mg Valacyclovir HCl (Valtrex -) 500 mg PO DAILY [facility] Last Admin: 10/16/19 09:24 Dose: 500 mg 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 Overall poor prognosis with cardiac and renal amyloid ongoing discussions regarding goals of care
[2019-10-16] MEDS: NOREPINEPHRINE BITARTRATE 8,000 MCG in SODIUM CHLORIDE 492 ML IV SCH (21:14)
[2019-10-16] MEDS: ATORVASTATIN CA 80 MG TABLET (FP) PO SCH (21:18)
--- NOTE | 2019-10-16 23:12 | PN ---
Progress Note, Physician History of Present Illness: Pt is oliguric - Current Medication List Current Medications: Active Medications Acetaminophen (Tylenol -) 650 mg PO Q6H PRN PRN Reason: FEVER Last Admin: 10/07/19 21:49 Dose: 650 mg Albumin Human (Albumin Human 25%) 12.5 gm IVPB Q30M [facility] Allopurinol (Zyloprim -) 100 mg PO DAILY [facility] Last Admin: 10/16/19 09:24 Dose: 100 mg Amiodarone HCl (Cordarone -) 200 mg PO BID [facility] Last Admin: 10/16/19 21:14 Dose: 200 mg Aspirin (Ecotrin -) 81 mg PO DAILY [facility] Last Admin: 10/16/19 09:24 Dose: 81 mg Atorvastatin Calcium (Lipitor -) 80 mg PO HS [facility] Last Admin: 10/16/19 21:18 Dose: 80 mg Escitalopram Oxalate (Lexapro -) 10 mg PO DAILY [facility] Last Admin: 10/16/19 09:24 Dose: 10 mg Hydrocortisone Sodium Succinate (Solu-Cortef -) 50 mg IVPB Q6H-IV [facility] Last Admin: 10/16/19 21:14 Dose: 50 mg Norepinephrine Bitartrate 8, (000 mcg/ Sodium Chloride) 500 mls @ 18.75 mls/hr IV TITR [facility]; Protocol Last Admin: 10/16/19 21:14 Dose: Not Given Sodium Chloride (Normal Saline -) 250 mls @ 3,000 mls/hr IV PRN PRN PRN Reason: Hypotension during Dialysis Stop: 10/17/19 17:47 Levothyroxine Sodium (Synthroid -) 75 mcg PO DAILY@0700 [facility] Last Admin: 10/16/19 06:02 Dose: 75 mcg Midodrine (Proamatine -) 10 mg PO TID-MID [facility] Last Admin: 10/16/19 17:47 Dose: 10 mg Pantoprazole Sodium (Protonix -) 40 mg PO DAILY [facility] Last Admin: 10/16/19 09:24 Dose: 40 mg Valacyclovir HCl (Valtrex -) 500 mg PO DAILY [facility] Last Admin: 10/16/19 09:24 Dose: 500 mg - Objective Vital Signs: Vital Signs Temperature 98.4 F 10/16/19 22:00 Pulse Rate 77 10/16/19 22:00 Respiratory Rate 18 10/16/19 22:00 Blood Pressure 90/52 L 10/16/19 22:00 O2 Sat by Pulse Oximetry (%) 99 10/16/19 19:28 Neck: Yes: WNL, Supple Cardiovascular: Yes: WNL, Regular Rate and Rhythm Respiratory: Yes: Diminished Gastrointestinal: Yes: WNL, Normal Bowel Sounds, Soft Edema: LLE: 1+, RLE: 1+ Labs: CBC, BMP 10/16/19 06:00 10/16/19 06:00 INR, PTT INR 0.99 (0.83-1.09) 10/07/19 02:55 Problem List - Problems (1) Acute on chronic renal failure Assessment/Plan: Pt scheduled for dialysis Code(s): N17.9 - ACUTE KIDNEY FAILURE, UNSPECIFIED; N18.9 - CHRONIC KIDNEY DISEASE, UNSPECIFIED (2) Acute on chronic systolic CHF (congestive heart failure) Assessment/Plan: Pt is off IV lasix due to hypotension Monitor electrolytes Levophed to be tapered off as tolerated Pt is DNR Code(s): I50.23 - ACUTE ON CHRONIC SYSTOLIC (CONGESTIVE) HEART FAILURE (3) Multiple myeloma Assessment/Plan: Pt had been receiving chemotx and recently RT As per onco Code(s): C90.00 - MULTIPLE MYELOMA NOT HAVING ACHIEVED REMISSION Qualifiers: Multiple myeloma remission status: not in remission Qualified Code(s): C90.00 - Multiple myeloma not having achieved remission (4) HLD (hyperlipidemia) Assessment/Plan: DC lipitor due to increasing LFT's Code(s): E78.5 - HYPERLIPIDEMIA, UNSPECIFIED Qualifiers: Hyperlipidemia type: unspecified Qualified Code(s): E78.5 - Hyperlipidemia , unspecified (5) Hypothyroidism Assessment/Plan: Cont levothyroxine Check TSH Code(s): E03.9 - HYPOTHYROIDISM, UNSPECIFIED Qualifiers: Hypothyroidism type: acquired Qualified Code(s): E03.9 - Hypothyroidism, unspecified (6) CAD (coronary artery disease) Code(s): I25.10 - ATHSCL HEART DISEASE OF [place] CORONARY ARTERY W/O ANG PCTRS Qualifiers: (7) Depression Assessment/Plan: Cont lexapro Code(s): F32.9 - MAJOR DEPRESSIVE DISORDER, SINGLE EPISODE, UNSPECIFIED (8) History of heart artery stent Code(s): Z95.5 - PRESENCE OF CORONARY ANGIOPLASTY IMPLANT AND GRAFT (9) Diarrhea Code(s): R19.7 - DIARRHEA, UNSPECIFIED Qualifiers: Diarrhea type: unspecified type Qualified Code(s): R19.7 - Diarrhea, unspecified (10) UTI (urinary tract infection) Code(s): N39.0 - URINARY TRACT INFECTION, SITE NOT SPECIFIED (11) Elevated troponin Code(s): R74.8 - ABNORMAL LEVELS OF OTHER SERUM ENZYMES
[2019-10-17] MEDS: HYDROCORTISONE SOD SUCCINATE 100 MG/2 ML VIAL IVPB SCH ×4 (02:12→21:28)
[2019-10-17] MEDS: LEVOTHYROXINE NA 75 MCG TABLET (FP) PO SCH (06:14)
[2019-10-17] MEDS ORDERED: SODIUM CHLORIDE 250 ML IV PRN (08:00)
[2019-10-17 08:09] LABS: HEMATOCRIT 24.1 % (32.4-45.2); HEMOGLOBIN 7.9 GM/dL (10.7-15.3); MCH 31.8 pg (25.7-33.7); MEAN CELL VOLUME 96.5 fl (80-96); PLATELET COUNT 123 K/MM3 (134-434); RBC 2.49 M/mm3 (3.60-5.2); RDW 18.6 % (11.6-15.6)
[2019-10-17 08:23] LABS: BLOOD UREA NITROGEN 54.2 mg/dL (7-18); CALCIUM 8.7 mg/dL (8.5-10.1); CREATININE 3.5 mg/dL (0.55-1.3); POTASSIUM 4.8 mmol/L (3.5-5.1)
[2019-10-17] MEDS: ALBUMIN HUMAN 25% 12.5 GM/50 ML VIAL IVPB SCH ×4 (09:45→10:53)
[2019-10-17] MEDS ORDERED: PT OWN MED DRAWER 7, Y5N ONE (10:25)
[2019-10-17] MEDS: valACYclovir HCL 500 MG TABLET (FP) PO SCH (10:40)
[2019-10-17] MEDS: PANTOPRAZOLE 40 MG TABLET (FP) PO SCH (10:40)
[2019-10-17] MEDS: ESCITALOPRAM OXALATE 10 MG TABLET (FP) PO SCH (10:41)
[2019-10-17] MEDS: AMIODARONE HCL 200 MG TABLET (FP) PO SCH ×2 (10:41→21:29)
[2019-10-17] MEDS: ASPIRIN COATED 81 MG TABLET.EC PO SCH (10:41)
[2019-10-17] MEDS: MIDODRINE HCL 5 MG TABLET PO SCH ×3 (10:41→17:04)
[2019-10-17] MEDS: ALLOPURINOL 100 MG TABLET (FP) PO SCH (10:41)
--- NOTE | 2019-10-17 10:57 | PN ---
Progress Note, Physician History of Present Illness: 74 year old black female with PMH HTN, HLD, CAD s/p coronary artery stenting, GERD, multiple myeloma (chemo; radiation directed at abdomen), ? "mild" systolic CHF, on Lasix, rectal hemorrhoids, now presented to ED for diarrhea x2 days associated with generalized weakness, ROGERS. Pt reported she has had loose, watery diarrhea x2 days, and prior to that he had rectal bleeding x2 days (on toilet paper and mixed in stool) that self resolved. She reported she only noticed the bleeding because it was on the toilet paper, as she did not have abdominal or rectal pain. Pt reported generalized weakness and ROGERS, which prompted her to come to the ED. Pt denied nausea, vomiting, fever, abdominal pain, chest pain, increased LE swelling. She reported she believed her lower extremity swelling is actually improving. She also reported noticing a new "rash " to her right hip since last week. - Current Medication List Current Medications: Active Medications Acetaminophen (Tylenol -) 650 mg PO Q6H PRN PRN Reason: FEVER Last Admin: 10/07/19 21:49 Dose: 650 mg Albumin Human (Albumin Human 25%) 12.5 gm IVPB Q30M [facility] Stop: 10/17/19 11:31 Last Admin: 10/17/19 10:53 Dose: Not Given Allopurinol (Zyloprim -) 100 mg PO DAILY [facility] Last Admin: 10/17/19 10:41 Dose: 100 mg Amiodarone HCl (Cordarone -) 200 mg PO BID [facility] Last Admin: 10/17/19 10:41 Dose: 200 mg Aspirin (Ecotrin -) 81 mg PO DAILY [facility] Last Admin: 10/17/19 10:41 Dose: 81 mg Atorvastatin Calcium (Lipitor -) 80 mg PO HS [facility] Last Admin: 10/16/19 21:18 Dose: 80 mg Escitalopram Oxalate (Lexapro -) 10 mg PO DAILY [facility] Last Admin: 10/17/19 10:41 Dose: 10 mg Hydrocortisone Sodium Succinate (Solu-Cortef -) 50 mg IVPB Q6H-IV [facility] Last Admin: 10/17/19 10:41 Dose: 50 mg Sodium Chloride (Normal Saline -) 250 mls @ 3,000 mls/hr IV PRN PRN PRN Reason: Hypotension during Dialysis Stop: 10/18/19 07:59 Levothyroxine Sodium (Synthroid -) 75 mcg PO DAILY@0700 [facility] Last Admin: 10/17/19 06:14 Dose: 75 mcg Midodrine (Proamatine -) 10 mg PO TID-MID [facility] Last Admin: 10/17/19 10:41 Dose: 10 mg Pantoprazole Sodium (Protonix -) 40 mg PO DAILY [facility] Last Admin: 10/17/19 10:40 Dose: 40 mg Valacyclovir HCl (Valtrex -) 500 mg PO DAILY [facility] Last Admin: 10/17/19 10:40 Dose: 500 mg - Objective Vital Signs: Vital Signs Temperature 98.5 F 10/17/19 06:55 Pulse Rate 78 10/17/19 10:05 Respiratory Rate 18 10/17/19 10:05 Blood Pressure 103/68 10/17/19 10:05 O2 Sat by Pulse Oximetry (%) 99 10/16/19 19:28 Eyes: Yes: WNL, Conjunctiva Clear, EOM Intact HENT: Yes: WNL, Atraumatic, Normocephalic Neck: Yes: WNL, Supple, Trachea Midline Cardiovascular: Yes: WNL, Regular Rate and Rhythm Respiratory: Yes: WNL, Regular, CTA Bilaterally Gastrointestinal: Yes: WNL, Normal Bowel Sounds Genitourinary: Yes: WNL Musculoskeletal: Yes: WNL Extremities: Yes: WNL Edema: Yes Integumentary: Yes: WNL Neurological: Yes: WNL, Alert, Oriented ...Motor Strength: WNL Psychiatric: Yes: WNL Labs: CBC, BMP 10/17/19 07:00 10/17/19 06:11 INR, PTT INR 0.99 (0.83-1.09) 10/07/19 02:55 Assessment/Plan - Problems (1) Weakness Code(s): R53.1 - WEAKNESS (2) ASHD (arteriosclerotic heart disease) Code(s): I25.10 - ATHSCL HEART DISEASE OF [place] CORONARY ARTERY W/O ANG PCTRS (3) Acute on chronic systolic CHF (congestive heart failure) Assessment/Plan: Pt remains on PO amiodarone; on IV Solucortef. off pressorss Undergoing 2nd cycle of hemodilysis within the past 48 hours. Code(s): I50.23 - ACUTE ON CHRONIC SYSTOLIC (CONGESTIVE) HEART FAILURE (4) Adult onset hypothyroidism Assessment/Plan: mildly elevated TSH; normal Free T4 in ICU setting. Code(s): E03.8 - OTHER SPECIFIED HYPOTHYROIDISM (5) Anxiety Code(s): F41.9 - ANXIETY DISORDER, UNSPECIFIED (6) Elevated troponin Assessment/Plan: Maximum 26.4. Now off IV heparin. On ASA, amiodarone, and atorvastatin. Code(s): R74.8 - ABNORMAL LEVELS OF OTHER SERUM ENZYMES (7) HLD (hyperlipidemia) Code(s): E78.5 - HYPERLIPIDEMIA, UNSPECIFIED Qualifiers: Hyperlipidemia type: unspecified Qualified Code(s): E78.5 - Hyperlipidemia , unspecified (8) History of heart artery stent Code(s): Z95.5 - PRESENCE OF CORONARY ANGIOPLASTY IMPLANT AND GRAFT (9) Multiple myeloma Assessment/Plan: Multiple myeloma; amyloidosis. f/u with oncologist/licensed and certified midwife. Code(s): C90.00 - MULTIPLE MYELOMA NOT HAVING ACHIEVED REMISSION Qualifiers: Multiple myeloma remission status: not in remission Qualified Code(s): C90.00 - Multiple myeloma not having achieved remission (10) Pancytopenia Assessment/Plan: f/u with hem/onc. Code(s): D61.818 - OTHER PANCYTOPENIA (11) NSTEMI (non-ST elevated myocardial infarction) Assessment/Plan: see under "Acute Systolic CHF" and "elevated Troponin"). Code(s): I21.4 - NON-ST ELEVATION (NSTEMI) MYOCARDIAL INFARCTION (12) Acute renal insufficiency Code(s): N28.9 - DISORDER OF KIDNEY AND URETER, UNSPECIFIED (13) Hypoalbuminemia Assessment/Plan: for albumin (0.9-->1.5) with hemodialysis. Code(s): E88.09 - OTH DISORDERS OF PLASMA-PROTEIN METABOLISM, NEC (14) Hyperkalemia Assessment/Plan: Now WNL after hemodialysis. Code(s): E87.5 - HYPERKALEMIA Assessment/Plan CCU time spent: 35 minutes.
--- NOTE | 2019-10-17 11:46 | PN ---
Progress Note, Physician History of Present Illness: very tired post dialysis - Current Medication List Current Medications: Active Medications Acetaminophen (Tylenol -) 650 mg PO Q6H PRN PRN Reason: FEVER Last Admin: 10/07/19 21:49 Dose: 650 mg Allopurinol (Zyloprim -) 100 mg PO DAILY [facility] Last Admin: 10/17/19 10:41 Dose: 100 mg Amiodarone HCl (Cordarone -) 200 mg PO BID [facility] Last Admin: 10/17/19 10:41 Dose: 200 mg Aspirin (Ecotrin -) 81 mg PO DAILY [facility] Last Admin: 10/17/19 10:41 Dose: 81 mg Atorvastatin Calcium (Lipitor -) 80 mg PO HS [facility] Last Admin: 10/16/19 21:18 Dose: 80 mg Escitalopram Oxalate (Lexapro -) 10 mg PO DAILY [facility] Last Admin: 10/17/19 10:41 Dose: 10 mg Hydrocortisone Sodium Succinate (Solu-Cortef -) 50 mg IVPB Q6H-IV [facility] Last Admin: 10/17/19 10:41 Dose: 50 mg Sodium Chloride (Normal Saline -) 250 mls @ 3,000 mls/hr IV PRN PRN PRN Reason: Hypotension during Dialysis Stop: 10/18/19 07:59 Levothyroxine Sodium (Synthroid -) 75 mcg PO DAILY@0700 [facility] Last Admin: 10/17/19 06:14 Dose: 75 mcg Midodrine (Proamatine -) 10 mg PO TID-MID [facility] Last Admin: 10/17/19 10:41 Dose: 10 mg Pantoprazole Sodium (Protonix -) 40 mg PO DAILY [facility] Last Admin: 10/17/19 10:40 Dose: 40 mg Valacyclovir HCl (Valtrex -) 500 mg PO DAILY [facility] Last Admin: 10/17/19 10:40 Dose: 500 mg - Objective Vital Signs: Vital Signs Temperature 98.5 F 10/17/19 06:55 Pulse Rate 78 10/17/19 10:05 Respiratory Rate 18 10/17/19 10:05 Blood Pressure 103/68 10/17/19 10:05 O2 Sat by Pulse Oximetry (%) 99 10/16/19 19:28 Constitutional: Yes: No Distress, Calm Cardiovascular: Yes: S1, S2 Respiratory: Yes: Poor Air Entry Gastrointestinal: Yes: Normal Bowel Sounds, Soft Musculoskeletal: Yes: WNL Extremities: Yes: WNL Neurological: Yes: Alert, Oriented Psychiatric: Yes: Alert, Oriented Labs: CBC, BMP 10/17/19 07:00 10/17/19 06:11 INR, PTT INR 0.99 (0.83-1.09) 10/07/19 02:55 Assessment/Plan Problem List - Problems (1) Anasarca Code(s): R60.1 - GENERALIZED EDEMA (2) Fluid overload Code(s): E87.70 - FLUID OVERLOAD, UNSPECIFIED (3) Hypoxia Code(s): R09.02 - HYPOXEMIA (4) Weakness Code(s): R53.1 - WEAKNESS (5) ASHD (arteriosclerotic heart disease) Code(s): I25.10 - ATHSCL HEART DISEASE OF [place] CORONARY ARTERY W/O ANG PCTRS (6) Acute exacerbation of CHF (congestive heart failure) Code(s): I50.9 - HEART FAILURE, UNSPECIFIED (7) Acute on chronic systolic CHF (congestive heart failure) Code(s): I50.23 - ACUTE ON CHRONIC SYSTOLIC (CONGESTIVE) HEART FAILURE (8) Adult onset hypothyroidism Code(s): E03.8 - OTHER SPECIFIED HYPOTHYROIDISM (9) Anemia Code(s): D64.9 - ANEMIA, UNSPECIFIED (10) CKD (chronic kidney disease) Code(s): N18.9 - CHRONIC KIDNEY DISEASE, UNSPECIFIED (11) Elevated troponin Code(s): R74.8 - ABNORMAL LEVELS OF OTHER SERUM ENZYMES (12) HLD (hyperlipidemia) Code(s): E78.5 - HYPERLIPIDEMIA, UNSPECIFIED Qualifiers: Hyperlipidemia type: unspecified Qualified Code(s): E78.5 - Hyperlipidemia , unspecified (13) HTN (hypertension) Code(s): I10 - ESSENTIAL (PRIMARY) HYPERTENSION Qualifiers: Hypertension type: unspecified Qualified Code(s): I10 - Essential (primary ) hypertension (14) History of heart artery stent Code(s): Z95.5 - PRESENCE OF CORONARY ANGIOPLASTY IMPLANT AND GRAFT (15) Multiple myeloma Code(s): C90.00 - MULTIPLE MYELOMA NOT HAVING ACHIEVED REMISSION Qualifiers: Multiple myeloma remission status: not in remission Qualified Code(s): C90.00 - Multiple myeloma not having achieved remission uti hypotension Assessment/Plan continue current mgmt monitor bp resp support close watch will hold off on abx rest as per icu cc 35 min
--- NOTE | 2019-10-17 12:11 | PN ---
Teaching Attending Note Name of Resident: Bella Huggins ATTENDING PHYSICIAN STATEMENT I saw and evaluated the patient. I reviewed the resident's note and discussed the case with the resident. I agree with the resident's findings and plan as documented. SUBJECTIVE: Patient seen and examined in the ICU. Awake and alert. Denies CP or SOB. Off pressors. Currently on HD. Intake & Output 10/14/19 10/15/19 10/16/19 10/17/19 23:59 23:59 23:59 23:59 Intake Total 720 680 178 600 Output Total 2825 091 56 3553 Balance -2105 545 118 -1940 Weight 167 lb 8 oz 162 lb 1.6 oz 164 lb 1.6 oz 166 lb 9.6 oz Last Vital Signs Temp Pulse Resp BP Pulse Ox 98.5 F 78 18 103/68 99 10/17/19 06:55 10/17/19 10:05 10/17/19 10:05 10/17/19 10:05 10/17/19 09:00 Active Medications Acetaminophen (Tylenol -) 650 mg PO Q6H PRN PRN Reason: FEVER Last Admin: 10/07/19 21:49 Dose: 650 mg Allopurinol (Zyloprim -) 100 mg PO DAILY [facility] Last Admin: 10/17/19 10:41 Dose: 100 mg Amiodarone HCl (Cordarone -) 200 mg PO BID [facility] Last Admin: 10/17/19 10:41 Dose: 200 mg Aspirin (Ecotrin -) 81 mg PO DAILY [facility] Last Admin: 10/17/19 10:41 Dose: 81 mg Atorvastatin Calcium (Lipitor -) 80 mg PO HS [facility] Last Admin: 10/16/19 21:18 Dose: 80 mg Escitalopram Oxalate (Lexapro -) 10 mg PO DAILY [facility] Last Admin: 10/17/19 10:41 Dose: 10 mg Hydrocortisone Sodium Succinate (Solu-Cortef -) 50 mg IVPB Q6H-IV [facility] Last Admin: 10/17/19 10:41 Dose: 50 mg Sodium Chloride (Normal Saline -) 250 mls @ 3,000 mls/hr IV PRN PRN PRN Reason: Hypotension during Dialysis Stop: 10/18/19 07:59 Levothyroxine Sodium (Synthroid -) 75 mcg PO DAILY@0700 [facility] Last Admin: 10/17/19 06:14 Dose: 75 mcg Midodrine (Proamatine -) 10 mg PO TID-MID [facility] Last Admin: 10/17/19 10:41 Dose: 10 mg Pantoprazole Sodium (Protonix -) 40 mg PO DAILY [facility] Last Admin: 10/17/19 10:40 Dose: 40 mg Valacyclovir HCl (Valtrex -) 500 mg PO DAILY [facility] Last Admin: 10/17/19 10:40 Dose: 500 mg Eyes: Yes: Conjunctiva Clear, EOM Intact HENT: Yes: WNL, Atraumatic, Normocephalic Neck: Yes: WNL, Supple, Trachea Midline Cardiovascular: Yes: WNL, Regular Rate and Rhythm Respiratory: Yes: WNL, Bibasilar rales / rhonchi Gastrointestinal: Yes: WNL, Normal Bowel Sounds Genitourinary: Yes: WNL Musculoskeletal: Yes: WNL Extremities: Yes: WNL Edema: No Integumentary: Yes: WNL Neurological: Yes: WNL, Alert, Oriented ...Motor Strength: WNL Psychiatric: Yes: WNL Labs: Laboratory Results - last 24 hr 10/17/19 10/17/19 10/17/19 06:11 07:00 07:00 WBC 7.0 RBC 2.49 L Hgb 7.9 L Hct 24.1 L MCV 96.5 H MCH 31.8 MCHC 33.0 RDW 18.6 H Plt Count 123 L MPV 10.0 Sodium 131 L Potassium 4.8 Chloride 93 L Carbon Dioxide 27 Anion Gap 12 BUN 54.2 H Creatinine 3.5 H Est GFR (CKD-EPI)AfAm 14.03 Est GFR (CKD-EPI)NonAf 12.11 Random Glucose 113 H Calcium 8.7 Blood Type B POSITIVE Antibody Screen Negative Crossmatch See Detail ASSESSMENT AND PLAN: Acute on Chronic Systolic Heart Failure Cardiogenic Shock Acute on Chronic Renal Failure CAD Acute NSTEMI Paroxysmal Atrial Fibrillation Pneumonia Asthma Multiple Myeloma HTN Hyperlipidemia Hypothyroidism Anemia Hyponatremia - O2 to keep SpO2 >90% - monitor urine output, creatinine - HD per Renal - daily weights - amiodarone - Normal Transfusion thresholds - completed antibiotics, ID following - inhaled bronchodilators as needed - continue empiric hydrocortisone - DVT prophylaxis - continue ICU monitoring - (?) Possible transfer to LT[facility] - Cardiac Telemetry monitoring Dr Bacon
--- NOTE | 2019-10-17 14:00 | PN ---
Progress Note, Physician History of Present Illness: Pt seen and examined at bedside. She is awake and appears comfortable. - Current Medication List Current Medications: Active Medications Acetaminophen (Tylenol -) 650 mg PO Q6H PRN PRN Reason: FEVER Last Admin: 10/07/19 21:49 Dose: 650 mg Allopurinol (Zyloprim -) 100 mg PO DAILY [facility] Last Admin: 10/17/19 10:41 Dose: 100 mg Amiodarone HCl (Cordarone -) 200 mg PO BID [facility] Last Admin: 10/17/19 10:41 Dose: 200 mg Aspirin (Ecotrin -) 81 mg PO DAILY [facility] Last Admin: 10/17/19 10:41 Dose: 81 mg Atorvastatin Calcium (Lipitor -) 80 mg PO HS [facility] Last Admin: 10/16/19 21:18 Dose: 80 mg Escitalopram Oxalate (Lexapro -) 10 mg PO DAILY [facility] Last Admin: 10/17/19 10:41 Dose: 10 mg Hydrocortisone Sodium Succinate (Solu-Cortef -) 50 mg IVPB Q6H-IV [facility] Last Admin: 10/17/19 10:41 Dose: 50 mg Sodium Chloride (Normal Saline -) 250 mls @ 3,000 mls/hr IV PRN PRN PRN Reason: Hypotension during Dialysis Stop: 10/18/19 07:59 Levothyroxine Sodium (Synthroid -) 75 mcg PO DAILY@0700 [facility] Last Admin: 10/17/19 06:14 Dose: 75 mcg Midodrine (Proamatine -) 10 mg PO TID-MID [facility] Last Admin: 10/17/19 13:29 Dose: 10 mg Pantoprazole Sodium (Protonix -) 40 mg PO DAILY [facility] Last Admin: 10/17/19 10:40 Dose: 40 mg Valacyclovir HCl (Valtrex -) 500 mg PO DAILY [facility] Last Admin: 10/17/19 10:40 Dose: 500 mg - Objective Vital Signs: Vital Signs Temperature 97.2 F L 10/17/19 10:00 Pulse Rate 79 10/17/19 12:00 Respiratory Rate 19 10/17/19 12:00 Blood Pressure 105/64 10/17/19 12:00 O2 Sat by Pulse Oximetry (%) 99 10/17/19 09:00 Constitutional: Yes: Calm Eyes: Yes: Conjunctiva Clear HENT: Yes: Atraumatic Cardiovascular: Yes: S1, S2 Respiratory: Yes: On Nasal O2 Gastrointestinal: Yes: Soft Genitourinary: Yes: WNL Musculoskeletal: Yes: Muscle Weakness Edema: Yes Edema: LLE: 1+, RLE: 1+ Neurological: Yes: Oriented Psychiatric: Yes: Oriented Labs: CBC, BMP 10/17/19 07:00 10/17/19 06:11 INR, PTT INR 0.99 (0.83-1.09) 10/07/19 02:55 Problem List - Problems (1) Fluid overload Code(s): E87.70 - FLUID OVERLOAD, UNSPECIFIED (2) CKD (chronic kidney disease) Code(s): N18.9 - CHRONIC KIDNEY DISEASE, UNSPECIFIED Assessment/Plan Current Medications Generic Name Dose Route Start Last Admin Trade Name Freq PRN Reason Stop Dose Admin Acetaminophen 650 mg 09/20/19 22:25 10/07/19 21:49 Tylenol - PO 650 mg Q6H PRN Administration FEVER Allopurinol 100 mg 10/10/19 13:49 10/17/19 10:41 Zyloprim - PO 100 mg DAILY [facility] Administration Amiodarone HCl 200 mg 10/11/19 12:54 10/17/19 10:41 Cordarone - PO 200 mg BID [facility] Administration Aspirin 81 mg 09/25/19 10:00 10/17/19 10:41 Ecotrin - PO 81 mg DAILY [facility] Administration Atorvastatin Calcium 80 mg 10/14/19 22:00 10/16/19 21:18 Lipitor - PO 80 mg HS [facility] Administration Escitalopram Oxalate 10 mg 09/21/19 10:00 10/17/19 10:41 Lexapro - PO 10 mg DAILY [facility] Administration Hydrocortisone Sodium Succinate 50 mg 10/07/19 16:00 10/17/19 10:41 Solu-Cortef - IVPB 50 mg Q6H-IV [facility] Administration Sodium Chloride 250 mls @ 3,000 mls/hr 10/17/19 08:00 Normal Saline - IV 10/18/19 07:59 PRN PRN Hypotension during Dialysis Levothyroxine Sodium 75 mcg 09/21/19 07:00 10/17/19 06:14 Synthroid - PO 75 mcg DAILY@0700 [facility] Administration Midodrine 10 mg 10/06/19 18:00 10/17/19 13:29 Proamatine - PO 10 mg TID-MID [facility] Administration Pantoprazole Sodium 40 mg 09/21/19 10:00 10/17/19 10:40 Protonix - PO 40 mg DAILY [facility] Administration Valacyclovir HCl 500 mg 09/21/19 10:00 10/17/19 10:40 Valtrex - PO 500 mg DAILY [facility] Administration Impression 1. proteinuria 2. multiple myeloma 3. amyloid 4. dizziness 5. hypotension 6. HLD 7. hypothyroidism 8. anemia 9. CKD 10. fluid overload 11. hypotension 12. hyperkalemia 13. nstemi 14. DEBBIE Plan - HD today - pt tolerated UF - will need to change shiley - will likey need permacath - pt remains oliguric - prognosis is poor
[2019-10-17] MEDS ORDERED: ALBUTEROL SO4 2.5/IPRATROPIUM 0.5 INH SOL 3 ML VIAL.NEB. NEB PRN (15:39)
--- NOTE | 2019-10-17 15:46 | PN ---
Progress Note (short form) - Note Progress Note: Patient seen and examiend Being dialyzed AFVSS Cor: RSR, No murmurs, No gallops Lungs: decreased at bases Abd: Soft, Normal bowel sounds, Ext:3+ edema Labs/Meds reviewed A/P Multiple Myeloma Amyloid CHF Anemia Fever LLL atelectasis vs infiltrate UTI Renal failure Hypotension CHF On midodrine On steroids Started HD Overall poor prognosis with cardiac and renal amyloid ongoing discussions regarding goals of care will discuss with palliative care team/ will discuss with patients son
--- NOTE | 2019-10-17 15:49 | PN ---
Physical Exam: SUBJECTIVE: Patient seen and examined in the morning. No acute events overnight , no events on telemetry monitoring. No complaints of chest pain, shortness of breath, abdominal pain, nausea, vomiting, diarrhea. Patient received hemodialysis in the morning. OBJECTIVE: Vital Signs Period Temp Pulse Resp BP Sys/Moss Pulse Ox Last 24 Hr 97.2 F-98.5 F 74-79 14-22 89-119/51-73 99-99 GENERAL: The patient is awake, alert, and fully oriented, in no acute distress. HEAD: Normal with no signs of trauma. EYES: PERRL, extraocular movements intact, sclera anicteric, conjunctiva clear. NECK: Trachea midline, full range of motion, supple. Central line in place on the left side. Day 4 of placement. LUNGS: Breath sounds equal, clear to auscultation bilaterally HEART: Regular rate and rhythm, S1, S2 without murmur, rub or gallop. ABDOMEN: Soft, nontender, nondistended, normoactive bowel sounds, no guarding, no rebound. EXTREMITIES: 2+ pulses, warm, well-perfused, no edema. PSYCH: Normal mood, normal affect. SKIN: Warm, dry, normal turgor, no rashes or lesions noted Laboratory Results - last 24 hr 10/17/19 10/17/19 10/17/19 06:11 07:00 07:00 WBC 7.0 RBC 2.49 L Hgb 7.9 L Hct 24.1 L MCV 96.5 H MCH 31.8 MCHC 33.0 RDW 18.6 H Plt Count 123 L MPV 10.0 Sodium 131 L Potassium 4.8 Chloride 93 L Carbon Dioxide 27 Anion Gap 12 BUN 54.2 H Creatinine 3.5 H Est GFR (CKD-EPI)AfAm 14.03 Est GFR (CKD-EPI)NonAf 12.11 Random Glucose 113 H Calcium 8.7 Blood Type B POSITIVE Antibody Screen Negative Crossmatch See Detail Active Medications Generic Name Dose Route Start Last Admin Trade Name Freq PRN Reason Stop Dose Admin Acetaminophen 650 mg 09/20/19 22:25 10/07/19 21:49 Tylenol - PO 650 mg Q6H PRN Administration FEVER Allopurinol 100 mg 10/10/19 13:49 10/17/19 10:41 Zyloprim - PO 100 mg DAILY [facility] Administration Amiodarone HCl 200 mg 10/11/19 12:54 10/17/19 10:41 Cordarone - PO 200 mg BID [facility] Administration Aspirin 81 mg 09/25/19 10:00 10/17/19 10:41 Ecotrin - PO 81 mg DAILY [facility] Administration Atorvastatin Calcium 80 mg 10/14/19 22:00 10/16/19 21:18 Lipitor - PO 80 mg HS [facility] Administration Escitalopram Oxalate 10 mg 09/21/19 10:00 10/17/19 10:41 Lexapro - PO 10 mg DAILY [facility] Administration Hydrocortisone Sodium Succinate 50 mg 10/07/19 16:00 10/17/19 10:41 Solu-Cortef - IVPB 50 mg Q6H-IV [facility] Administration Sodium Chloride 250 mls @ 3,000 mls/hr 10/17/19 08:00 Normal Saline - IV 10/18/19 07:59 PRN PRN Hypotension during Dialysis Levothyroxine Sodium 75 mcg 09/21/19 07:00 10/17/19 06:14 Synthroid - PO 75 mcg DAILY@0700 [facility] Administration Midodrine 10 mg 10/06/19 18:00 10/17/19 13:29 Proamatine - PO 10 mg TID-MID [facility] Administration Pantoprazole Sodium 40 mg 09/21/19 10:00 10/17/19 10:40 Protonix - PO 40 mg DAILY [facility] Administration Valacyclovir HCl 500 mg 09/21/19 10:00 10/17/19 10:40 Valtrex - PO 500 mg DAILY [facility] Administration ASSESSMENT/PLAN: 73 F PMH of multiple myeloma, amyloidosis, chronic anemia, HTN, HLD, hypothyroidism, GERD, admitted for UGIB, renal failure, volume overload, transferred to the ICU due to hypotension refractory to IVF boluses. Neuro -AOX3. -Lexapro 10 mg PO Daily Cardio -Cardiogenic Shock: Midodrine 10 mg PO TID. Norepi d/c -Tachycardia: Amiodarone 200 mg BID -ASA 81 -Atorvastatin 40 mg Pulm -NC 4L -Duonebs PRN -HD was completed today -Hydrocortisone 50 mg Q6H GI -FOBT negative -GI consulted -Hgb/Hct stable Renal -Creatinine 3.5 today. -HD today, 2L fluid removed -Will likely need permacath -Nephrology consulted, appreciate recs Heme/Onc -Multiple Myeloma: Allopurinol 100 mg PO Daily -Potassium 4.7 today -Hgb 7.9 today -Has had 2 irradiated units transfused during admission Endo -Hx of hypothyroidism on levothyroxine ID -Completed course of Abx. -Continue monitoring -ID consulted, following patient, appreciate recs F: No fluids E: Monitor CMP N: Soft diet DVT PPX: SCDs GI PPX: Protonix 40 mg Dispo: LTAC status pending, patient refusing to go to [place]. Palliative care consulted Visit type - Emergency Visit Emergency Visit: Yes ED Registration Date: 09/20/19 Care time: The patient presented to the Emergency Department on the above date and was hospitalized for further evaluation of their emergent condition. - New Patient This patient is new to me today: Yes Date on this admission: 10/17/19 - Critical Care Critical Care patient: Yes Total Critical Care Time (in minutes): 45 Critical Care Statement: The care of this patient involved high complexity decision making to prevent further life threatening deterioration of the patient 's condition and/or to evaluate & treat vital organ system(s) failure or risk of failure. ATTENDING PHYSICIAN STATEMENT I saw and evaluated the patient. I reviewed the resident's note and discussed the case with the resident. I agree with the resident's findings and plan as documented. SUBJECTIVE: OBJECTIVE: ASSESSMENT AND PLAN:
[2019-10-17] MEDS: ATORVASTATIN CA 80 MG TABLET (FP) PO SCH (21:29)
--- NOTE | 2019-10-17 22:29 | PN ---
Progress Note, Physician History of Present Illness: Pt remains oliguric - Current Medication List Current Medications: Active Medications Acetaminophen (Tylenol -) 650 mg PO Q6H PRN PRN Reason: FEVER Last Admin: 10/07/19 21:49 Dose: 650 mg Albuterol/Ipratropium (Duoneb -) 1 amp NEB Q4H PRN PRN Reason: SHORTNESS OF BREATH Allopurinol (Zyloprim -) 100 mg PO DAILY [facility] Last Admin: 10/17/19 10:41 Dose: 100 mg Amiodarone HCl (Cordarone -) 200 mg PO BID [facility] Last Admin: 10/17/19 21:29 Dose: 200 mg Aspirin (Ecotrin -) 81 mg PO DAILY [facility] Last Admin: 10/17/19 10:41 Dose: 81 mg Atorvastatin Calcium (Lipitor -) 80 mg PO HS [facility] Last Admin: 10/17/19 21:29 Dose: 80 mg Escitalopram Oxalate (Lexapro -) 10 mg PO DAILY [facility] Last Admin: 10/17/19 10:41 Dose: 10 mg Hydrocortisone Sodium Succinate (Solu-Cortef -) 50 mg IVPB Q6H-IV [facility] Last Admin: 10/17/19 21:28 Dose: 50 mg Sodium Chloride (Normal Saline -) 250 mls @ 3,000 mls/hr IV PRN PRN PRN Reason: Hypotension during Dialysis Stop: 10/18/19 07:59 Levothyroxine Sodium (Synthroid -) 75 mcg PO DAILY@0700 [facility] Last Admin: 10/17/19 06:14 Dose: 75 mcg Midodrine (Proamatine -) 10 mg PO TID-MID [facility] Last Admin: 10/17/19 17:04 Dose: 10 mg Pantoprazole Sodium (Protonix -) 40 mg PO DAILY [facility] Last Admin: 10/17/19 10:40 Dose: 40 mg Valacyclovir HCl (Valtrex -) 500 mg PO DAILY [facility] Last Admin: 10/17/19 10:40 Dose: 500 mg - Objective Vital Signs: Vital Signs Temperature 98 F 10/17/19 14:00 Pulse Rate 80 10/17/19 18:00 Respiratory Rate 16 10/17/19 18:00 Blood Pressure 95/55 L 10/17/19 18:00 O2 Sat by Pulse Oximetry (%) 99 10/17/19 09:00 Neck: Yes: WNL, Supple Cardiovascular: Yes: WNL, Regular Rate and Rhythm Respiratory: Yes: Diminished Gastrointestinal: Yes: WNL, Normal Bowel Sounds, Soft Edema: Yes Edema: LLE: 1+, RLE: 1+ Labs: CBC, BMP 10/17/19 07:00 10/17/19 06:11 INR, PTT INR 0.99 (0.83-1.09) 10/07/19 02:55 Problem List - Problems (1) Acute on chronic renal failure Assessment/Plan: Pt received dialysis As per renal will need permacath Code(s): N17.9 - ACUTE KIDNEY FAILURE, UNSPECIFIED; N18.9 - CHRONIC KIDNEY DISEASE, UNSPECIFIED (2) Acute on chronic systolic CHF (congestive heart failure) Assessment/Plan: Pt is off IV lasix due to hypotension Monitor electrolytes Levophed has been tapered off Pt is DNR Code(s): I50.23 - ACUTE ON CHRONIC SYSTOLIC (CONGESTIVE) HEART FAILURE (3) Multiple myeloma Assessment/Plan: Pt had been receiving chemotx and recently RT As per onco Code(s): C90.00 - MULTIPLE MYELOMA NOT HAVING ACHIEVED REMISSION Qualifiers: Multiple myeloma remission status: not in remission Qualified Code(s): C90.00 - Multiple myeloma not having achieved remission (4) HLD (hyperlipidemia) Assessment/Plan: DC lipitor due to increasing LFT's Code(s): E78.5 - HYPERLIPIDEMIA, UNSPECIFIED Qualifiers: Hyperlipidemia type: unspecified Qualified Code(s): E78.5 - Hyperlipidemia , unspecified (5) Hypothyroidism Assessment/Plan: Cont levothyroxine Check TSH Code(s): E03.9 - HYPOTHYROIDISM, UNSPECIFIED Qualifiers: Hypothyroidism type: acquired Qualified Code(s): E03.9 - Hypothyroidism, unspecified (6) CAD (coronary artery disease) Code(s): I25.10 - ATHSCL HEART DISEASE OF [place] CORONARY ARTERY W/O ANG PCTRS Qualifiers: (7) Depression Assessment/Plan: Cont lexapro Code(s): F32.9 - MAJOR DEPRESSIVE DISORDER, SINGLE EPISODE, UNSPECIFIED (8) History of heart artery stent Code(s): Z95.5 - PRESENCE OF CORONARY ANGIOPLASTY IMPLANT AND GRAFT (9) Diarrhea Assessment/Plan: Now resolved Cause of dehydration/hypotension Code(s): R19.7 - DIARRHEA, UNSPECIFIED Qualifiers: Diarrhea type: unspecified type Qualified Code(s): R19.7 - Diarrhea, unspecified (10) UTI (urinary tract infection) Assessment/Plan: Due to strept agalactiae Now resolved Treated w/ IV meropenem Code(s): N39.0 - URINARY TRACT INFECTION, SITE NOT SPECIFIED (11) Elevated troponin Assessment/Plan: Troponin increased to 26 however it is now decreasing Cont to monitor Cont IV heparin/amiodarone Code(s): R74.8 - ABNORMAL LEVELS OF OTHER SERUM ENZYMES
[2019-10-18] MEDS: HYDROCORTISONE SOD SUCCINATE 100 MG/2 ML VIAL IVPB SCH ×4 (02:01→21:13)
[2019-10-18] MEDS: LEVOTHYROXINE NA 75 MCG TABLET (FP) PO SCH (06:17)
[2019-10-18 07:37] LABS: BASO % 0.4 % (0-2.0); HEMATOCRIT 26.2 % (32.4-45.2); HEMOGLOBIN 8.6 GM/dL (10.7-15.3); LYMPH % 3.3 % (8-40); MCH 31.9 pg (25.7-33.7); MCHC 32.9 g/dl (32.0-36.0); MEAN PLT VOLUME 10.2 fl (7.5-11.1); MONO % 3.2 % (3.8-10.2); NEUT % 93.1 % (42.8-82.8); PLATELET COUNT 129 K/MM3 (134-434); RDW 18.7 % (11.6-15.6); WHITE BLOOD COUNT 7.5 K/mm3 (4.0-10.0)
[2019-10-18 08:10] LABS: ALBUMIN 1.8 g/dl (3.4-5.0); BILIRUBIN,TOTAL 0.4 mg/dL (0.2-1); BLOOD UREA NITROGEN 36.9 mg/dL (7-18); CALCIUM 8.9 mg/dL (8.5-10.1); CREATININE 2.8 mg/dL (0.55-1.3); MAGNESIUM 2.2 mg/dL (1.8-2.4); POTASSIUM 4.3 mmol/L (3.5-5.1); TOT PROT 6.8 g/dl (6.4-8.2)
[2019-10-18] MEDS ORDERED: ONDANSETRON 4 MG/2 ML VIAL IVPUSH ONE (09:00)
[2019-10-18] MEDS ORDERED: NITROGLYCERIN SUBLINGUAL 1/150 0.4 MG TAB SL ONE (09:31)
--- NOTE | 2019-10-18 09:46 | PN ---
Progress Note, Physician Chief Complaint: Pt A&Ox3; offers no complaints. History of Present Illness: 74 year old black female with PMH multiple myeloma, amyloidosis (s/p chemotherapy, abdomen-directed radiation Tx), HTN, HLD, CAD s/p coronary artery stenting, GERD, , ? "mild" systolic CHF (now noted severely reduced LVEF on ECHO ), on Lasix, rectal hemorrhoids, now presented to ED for diarrhea x2 days associated with generalized weakness, ROGERS. Pt reported she has had loose, watery diarrhea x2 days, and prior to that he had rectal bleeding x2 days (on toilet paper and mixed in stool) that self resolved. She reported she only noticed the bleeding because it was on the toilet paper, as she did not have abdominal or rectal pain. Pt reported generalized weakness and ROGERS, which prompted her to come to the ED. Pt denied nausea, vomiting, fever, abdominal pain, chest pain, increased LE swelling. She reported she believed her lower extremity swelling is actually improving. She also reported noticing a new "rash " to her right hip since last week. - Current Medication List Current Medications: Active Medications Acetaminophen (Tylenol -) 650 mg PO Q6H PRN PRN Reason: FEVER Last Admin: 10/07/19 21:49 Dose: 650 mg Albuterol/Ipratropium (Duoneb -) 1 amp NEB Q4H PRN PRN Reason: SHORTNESS OF BREATH Allopurinol (Zyloprim -) 100 mg PO DAILY [facility] Last Admin: 10/17/19 10:41 Dose: 100 mg Amiodarone HCl (Cordarone -) 200 mg PO BID [facility] Last Admin: 10/17/19 21:29 Dose: 200 mg Aspirin (Ecotrin -) 81 mg PO DAILY [facility] Last Admin: 10/17/19 10:41 Dose: 81 mg Atorvastatin Calcium (Lipitor -) 80 mg PO HS [facility] Last Admin: 10/17/19 21:29 Dose: 80 mg Escitalopram Oxalate (Lexapro -) 10 mg PO DAILY [facility] Last Admin: 10/17/19 10:41 Dose: 10 mg Hydrocortisone Sodium Succinate (Solu-Cortef -) 50 mg IVPB Q6H-IV [facility] Last Admin: 10/18/19 02:01 Dose: 50 mg Levothyroxine Sodium (Synthroid -) 75 mcg PO DAILY@0700 [facility] Last Admin: 10/18/19 06:17 Dose: 75 mcg Midodrine (Proamatine -) 10 mg PO TID-MID [facility] Last Admin: 10/17/19 17:04 Dose: 10 mg Pantoprazole Sodium (Protonix -) 40 mg PO DAILY [facility] Last Admin: 10/17/19 10:40 Dose: 40 mg Valacyclovir HCl (Valtrex -) 500 mg PO DAILY [facility] Last Admin: 10/17/19 10:40 Dose: 500 mg - Objective Vital Signs: Vital Signs Temperature 98 F 10/18/19 06:00 Pulse Rate 86 10/18/19 08:00 Respiratory Rate 25 H 10/18/19 08:00 Blood Pressure 103/63 10/18/19 08:00 O2 Sat by Pulse Oximetry (%) 90 L 10/18/19 09:07 Constitutional: Yes: Calm Eyes: Yes: WNL HENT: Yes: WNL Neck: Yes: WNL Cardiovascular: Yes: Pulse Irregular Respiratory: Yes: Diminished Gastrointestinal: Yes: Soft ...Rectal Exam: Yes: Deferred Genitourinary: No: Anuria Musculoskeletal: Yes: Muscle Weakness Extremities: Yes: Cool Edema: No Peripheral Pulses WNL: No Peripheral Pulses: Left Doralis Pedis: 1+, Right Dorsalis Pedis: 1+ Integumentary: Yes: WNL Neurological: Yes: Alert, Oriented, Weakness Psychiatric: Yes: Alert, Oriented, Other (anxiety) Labs: CBC, BMP 10/18/19 06:00 10/18/19 06:00 INR, PTT INR 0.99 (0.83-1.09) 10/07/19 02:55 Problem List - Problems (1) Weakness Code(s): R53.1 - WEAKNESS (2) ASHD (arteriosclerotic heart disease) Code(s): I25.10 - ATHSCL HEART DISEASE OF [place] CORONARY ARTERY W/O ANG PCTRS (3) Acute on chronic systolic CHF (congestive heart failure) Assessment/Plan: Pt remains on PO amiodarone 200 bid (change to 100 mg bid after 2 weeks on present dose); on IV Solucortef. Again on norephinephrine, which is being tapered off. F/u BUN/Cr, electrolytes, Is and Os, daily weight. Code(s): I50.23 - ACUTE ON CHRONIC SYSTOLIC (CONGESTIVE) HEART FAILURE (4) Adult onset hypothyroidism Assessment/Plan: mildly elevated TSH; normal Free T4 in ICU setting. Code(s): E03.8 - OTHER SPECIFIED HYPOTHYROIDISM (5) Anxiety Code(s): F41.9 - ANXIETY DISORDER, UNSPECIFIED (6) Elevated troponin Assessment/Plan: Maximum 26.4-->4.7 on 10/12 19 Now off IV heparin. On ASA, amiodarone, and atorvastatin. Code(s): R74.8 - ABNORMAL LEVELS OF OTHER SERUM ENZYMES (7) HLD (hyperlipidemia) Assessment/Plan: On statin (increased dose to 80 mg daily) Code(s): E78.5 - HYPERLIPIDEMIA, UNSPECIFIED Qualifiers: Hyperlipidemia type: unspecified Qualified Code(s): E78.5 - Hyperlipidemia , unspecified (8) History of heart artery stent Code(s): Z95.5 - PRESENCE OF CORONARY ANGIOPLASTY IMPLANT AND GRAFT (9) Multiple myeloma Assessment/Plan: Multiple myeloma; amyloidosis. 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 Code(s): C90.00 - MULTIPLE MYELOMA NOT HAVING ACHIEVED REMISSION Qualifiers: Multiple myeloma remission status: not in remission Qualified Code(s): C90.00 - Multiple myeloma not having achieved remission (10) Pancytopenia Assessment/Plan: f/u with hem/onc; WBC now WNL. Code(s): D61.818 - OTHER PANCYTOPENIA (11) NSTEMI (non-ST elevated myocardial infarction) Assessment/Plan: see under "Acute Systolic CHF" and "elevated Troponin"). Code(s): I21.4 - NON-ST ELEVATION (NSTEMI) MYOCARDIAL INFARCTION (12) Acute renal insufficiency Code(s): N28.9 - DISORDER OF KIDNEY AND URETER, UNSPECIFIED (13) Hypoalbuminemia Code(s): E88.09 - OTH DISORDERS OF PLASMA-PROTEIN METABOLISM, NEC (14) Hyperkalemia Code(s): E87.5 - HYPERKALEMIA Assessment/Plan CCU time spent: 35 minutes.
[2019-10-18] MEDS ORDERED: PT OWN MED DRAWER 7, Y5N ONE ×2 (09:47→13:12)
[2019-10-18 09:48] LABS: ANISOCYTOSIS 3+; MACROCYTOSIS 0; OVALOCYTE 1+; TARGET CELLS 1+
[2019-10-18] MEDS: AMIODARONE HCL 200 MG TABLET (FP) PO SCH ×2 (09:53→22:32)
--- NOTE | 2019-10-18 09:53 | PN ---
Progress Note, Physician Chief Complaint: Pt A&Ox3; slept well; no chest pain or dyspnea; no leg pain/swelling. History of Present Illness: 74 year old black female with PMH multiple myeloma, amyloidosis (s/p chemotherapy, abdomen-directed radiation Tx), HTN, HLD, CAD s/p coronary artery stenting, GERD, , ? "mild" systolic CHF (now noted severely reduced LVEF on ECHO ), on Lasix, rectal hemorrhoids, now presented to ED for diarrhea x2 days associated with generalized weakness, ROGERS. Pt reported she has had loose, watery diarrhea x2 days, and prior to that he had rectal bleeding x2 days (on toilet paper and mixed in stool) that self resolved. She reported she only noticed the bleeding because it was on the toilet paper, as she did not have abdominal or rectal pain. Pt reported generalized weakness and ROGERS, which prompted her to come to the ED. Pt denied nausea, vomiting, fever, abdominal pain, chest pain, increased LE swelling. She reported she believed her lower extremity swelling is actually improving. She also reported noticing a new "rash " to her right hip since last week. - Current Medication List Current Medications: Active Medications Acetaminophen (Tylenol -) 650 mg PO Q6H PRN PRN Reason: FEVER Last Admin: 10/07/19 21:49 Dose: 650 mg Albuterol/Ipratropium (Duoneb -) 1 amp NEB Q4H PRN PRN Reason: SHORTNESS OF BREATH Allopurinol (Zyloprim -) 100 mg PO DAILY [facility] Last Admin: 10/17/19 10:41 Dose: 100 mg Amiodarone HCl (Cordarone -) 200 mg PO BID [facility] Last Admin: 10/17/19 21:29 Dose: 200 mg Aspirin (Ecotrin -) 81 mg PO DAILY [facility] Last Admin: 10/17/19 10:41 Dose: 81 mg Atorvastatin Calcium (Lipitor -) 80 mg PO HS [facility] Last Admin: 10/17/19 21:29 Dose: 80 mg Escitalopram Oxalate (Lexapro -) 10 mg PO DAILY [facility] Last Admin: 10/17/19 10:41 Dose: 10 mg Hydrocortisone Sodium Succinate (Solu-Cortef -) 50 mg IVPB Q6H-IV [facility] Last Admin: 10/18/19 02:01 Dose: 50 mg Levothyroxine Sodium (Synthroid -) 75 mcg PO DAILY@0700 [facility] Last Admin: 10/18/19 06:17 Dose: 75 mcg Midodrine (Proamatine -) 10 mg PO TID-MID [facility] Last Admin: 10/17/19 17:04 Dose: 10 mg Pantoprazole Sodium (Protonix -) 40 mg PO DAILY [facility] Last Admin: 10/17/19 10:40 Dose: 40 mg Valacyclovir HCl (Valtrex -) 500 mg PO DAILY [facility] Last Admin: 10/17/19 10:40 Dose: 500 mg - Objective Vital Signs: Vital Signs Temperature 98 F 10/18/19 06:00 Pulse Rate 86 10/18/19 08:00 Respiratory Rate 25 H 10/18/19 08:00 Blood Pressure 103/63 10/18/19 08:00 O2 Sat by Pulse Oximetry (%) 90 L 10/18/19 09:07 Constitutional: Yes: Calm Eyes: Yes: WNL HENT: Yes: WNL Neck: Yes: WNL Cardiovascular: Yes: Pulse Irregular, S1, S2 Respiratory: Yes: Diminished Gastrointestinal: Yes: Soft ...Rectal Exam: Yes: Deferred Genitourinary: No: Anuria Breast(s): Yes: WNL Musculoskeletal: Yes: Muscle Weakness Extremities: Yes: Cool Edema: No Peripheral Pulses WNL: No Peripheral Pulses: Left Doralis Pedis: 1+, Right Dorsalis Pedis: 1+ Integumentary: Yes: WNL Neurological: Yes: Alert, Oriented, Weakness Labs: CBC, BMP 10/18/19 06:00 10/18/19 06:00 INR, PTT INR 0.99 (0.83-1.09) 10/07/19 02:55 - ....Imaging Chest X-ray: Image Reviewed EKG: Image Reviewed Other: Image Reviewed Problem List - Problems (1) Weakness Code(s): R53.1 - WEAKNESS (2) ASHD (arteriosclerotic heart disease) Code(s): I25.10 - ATHSCL HEART DISEASE OF [place] CORONARY ARTERY W/O ANG PCTRS (3) Acute on chronic systolic CHF (congestive heart failure) Assessment/Plan: Pt remains on PO amiodarone 200 bid (change to 100 mg bid after 2 weeks on present dose); on IV Solucortef. on norephinephrine, which is being tapered off. F/u BUN/Cr, electrolytes, Is and Os, daily weight. Code(s): I50.23 - ACUTE ON CHRONIC SYSTOLIC (CONGESTIVE) HEART FAILURE (4) Adult onset hypothyroidism Assessment/Plan: mildly elevated TSH; normal Free T4 in ICU setting. Code(s): E03.8 - OTHER SPECIFIED HYPOTHYROIDISM (5) Anxiety Code(s): F41.9 - ANXIETY DISORDER, UNSPECIFIED (6) Elevated troponin Assessment/Plan: Maximum 26.4-->4.7 on 10/12 19 Now off IV heparin. On ASA, amiodarone, and atorvastatin. Code(s): R74.8 - ABNORMAL LEVELS OF OTHER SERUM ENZYMES (7) HLD (hyperlipidemia) Assessment/Plan: On statin (increased dose to 80 mg daily) Code(s): E78.5 - HYPERLIPIDEMIA, UNSPECIFIED Qualifiers: Hyperlipidemia type: unspecified Qualified Code(s): E78.5 - Hyperlipidemia , unspecified (8) History of heart artery stent Code(s): Z95.5 - PRESENCE OF CORONARY ANGIOPLASTY IMPLANT AND GRAFT (9) Multiple myeloma Assessment/Plan: Multiple myeloma; amyloidosis. 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 Code(s): C90.00 - MULTIPLE MYELOMA NOT HAVING ACHIEVED REMISSION Qualifiers: Multiple myeloma remission status: not in remission Qualified Code(s): C90.00 - Multiple myeloma not having achieved remission (10) Pancytopenia Code(s): D61.818 - OTHER PANCYTOPENIA (11) NSTEMI (non-ST elevated myocardial infarction) Code(s): I21.4 - NON-ST ELEVATION (NSTEMI) MYOCARDIAL INFARCTION (12) Acute renal insufficiency Code(s): N28.9 - DISORDER OF KIDNEY AND URETER, UNSPECIFIED (13) Hypoalbuminemia Code(s): E88.09 - OTH DISORDERS OF PLASMA-PROTEIN METABOLISM, NEC (14) Hyperkalemia Code(s): E87.5 - HYPERKALEMIA Assessment/Plan CCU time spent: 35 minutes.
[2019-10-18] MEDS: ALLOPURINOL 100 MG TABLET (FP) PO SCH (09:54)
[2019-10-18] MEDS: ASPIRIN COATED 81 MG TABLET.EC PO SCH (09:54)
[2019-10-18] MEDS: PANTOPRAZOLE 40 MG TABLET (FP) PO SCH (09:54)
[2019-10-18] MEDS: MIDODRINE HCL 5 MG TABLET PO SCH ×3 (09:54→17:52)
[2019-10-18] MEDS: ESCITALOPRAM OXALATE 10 MG TABLET (FP) PO SCH (09:54)
[2019-10-18] MEDS: valACYclovir HCL 500 MG TABLET (FP) PO SCH (09:56)
--- NOTE | 2019-10-18 10:01 | PN ---
Progress Note, Physician Chief Complaint: Pt A&Ox3; c/o 04/11 central chest tightness that began at about 8:30 am. History of Present Illness: 74 year old black female with PMH multiple myeloma, amyloidosis (s/p chemotherapy, abdomen-directed radiation Tx), HTN, HLD, CAD: NSEMI early 2018--> DE stent of D1 at [facility], GERD, ? "mild" systolic CHF (now noted severely reduced LVEF on ECHO), on Lasix, rectal hemorrhoids, PAF (brief runs early 2018 ; not on anticoagulation due to severe anemia, hx GI bleed), now presented to ED for diarrhea x2 days associated with generalized weakness, ROGERS. Pt reported she has had loose, watery diarrhea x2 days, and prior to that he had rectal bleeding x2 days (on toilet paper and mixed in stool) that self resolved. She reported she only noticed the bleeding because it was on the toilet paper, as she did not have abdominal or rectal pain. Pt reported generalized weakness and ROGERS, which prompted her to come to the ED. Pt denied nausea, vomiting, fever, abdominal pain, chest pain, increased LE swelling. She reported she believed her lower extremity swelling is actually improving. She also reported noticing a new "rash" to her right hip since last week. - Current Medication List Current Medications: Active Medications Acetaminophen (Tylenol -) 650 mg PO Q6H PRN PRN Reason: FEVER Last Admin: 10/07/19 21:49 Dose: 650 mg Albuterol/Ipratropium (Duoneb -) 1 amp NEB Q4H PRN PRN Reason: SHORTNESS OF BREATH Allopurinol (Zyloprim -) 100 mg PO DAILY [facility] Last Admin: 10/17/19 10:41 Dose: 100 mg Amiodarone HCl (Cordarone -) 200 mg PO BID [facility] Last Admin: 10/17/19 21:29 Dose: 200 mg Aspirin (Ecotrin -) 81 mg PO DAILY [facility] Last Admin: 10/17/19 10:41 Dose: 81 mg Atorvastatin Calcium (Lipitor -) 80 mg PO HS [facility] Last Admin: 10/17/19 21:29 Dose: 80 mg Escitalopram Oxalate (Lexapro -) 10 mg PO DAILY [facility] Last Admin: 10/17/19 10:41 Dose: 10 mg Hydrocortisone Sodium Succinate (Solu-Cortef -) 50 mg IVPB Q6H-IV [facility] Last Admin: 10/18/19 02:01 Dose: 50 mg Levothyroxine Sodium (Synthroid -) 75 mcg PO DAILY@0700 [facility] Last Admin: 10/18/19 06:17 Dose: 75 mcg Midodrine (Proamatine -) 10 mg PO TID-MID [facility] Last Admin: 10/17/19 17:04 Dose: 10 mg Pantoprazole Sodium (Protonix -) 40 mg PO DAILY [facility] Last Admin: 10/17/19 10:40 Dose: 40 mg Valacyclovir HCl (Valtrex -) 500 mg PO DAILY [facility] Last Admin: 10/17/19 10:40 Dose: 500 mg - Objective Vital Signs: Vital Signs Temperature 98 F 10/18/19 06:00 Pulse Rate 86 10/18/19 08:00 Respiratory Rate 25 H 10/18/19 08:00 Blood Pressure 103/63 10/18/19 08:00 O2 Sat by Pulse Oximetry (%) 90 L 10/18/19 09:07 Constitutional: Yes: Anxious Eyes: Yes: WNL HENT: Yes: WNL Neck: Yes: WNL Cardiovascular: Yes: Pulse Irregular, S1, S2 Respiratory: Yes: Diminished Gastrointestinal: Yes: Soft ...Rectal Exam: Yes: Deferred Genitourinary: No: Anuria Breast(s): Yes: WNL Musculoskeletal: Yes: Muscle Weakness Extremities: Yes: Cool Edema: Yes Edema: LUE: 2+ Peripheral Pulses WNL: No Peripheral Pulses: Left Doralis Pedis: 1+, Right Dorsalis Pedis: 1+ Integumentary: Yes: WNL Neurological: Yes: Alert, Oriented, Weakness Psychiatric: Yes: Alert, Oriented, Other (anxious) Labs: CBC, BMP 10/18/19 06:00 10/18/19 06:00 INR, PTT INR 0.99 (0.83-1.09) 10/07/19 02:55 Abnormal Lab Results 10/18/19 10/18/19 06:00 06:00 RBC 2.70 L Hgb 8.6 L Hct 26.2 L MCV 97.0 H RDW 18.7 H Plt Count 129 L Neutrophils % 93.1 H Lymphocytes % 3.3 L D Monocytes % 3.2 L Nucleated RBC % 1 H Chloride 96 L BUN 36.9 H Creatinine 2.8 H Phosphorus 5.0 H Albumin 1.8 L - ....Imaging Chest X-ray: Pending EKG: Image Reviewed Problem List - Problems (1) Weakness Code(s): R53.1 - WEAKNESS (2) ASHD (arteriosclerotic heart disease) Code(s): I25.10 - ATHSCL HEART DISEASE OF [place] CORONARY ARTERY W/O ANG PCTRS (3) Acute on chronic systolic CHF (congestive heart failure) Assessment/Plan: Pt remains on PO amiodarone 200 bid (change to 100 mg bid after 2 weeks on present dose); on IV Solucortef. on norephinephrine, which is being tapered off. F/u BUN/Cr, electrolytes, Is and Os, daily weight. Code(s): I50.23 - ACUTE ON CHRONIC SYSTOLIC (CONGESTIVE) HEART FAILURE (4) Adult onset hypothyroidism Assessment/Plan: mildly elevated TSH; normal Free T4 in ICU setting. Code(s): E03.8 - OTHER SPECIFIED HYPOTHYROIDISM (5) Anxiety Code(s): F41.9 - ANXIETY DISORDER, UNSPECIFIED (6) Elevated troponin Assessment/Plan: Pt with chest pain and SOB yesterday; TNI noted elevated (though lower than one week ago during NSTEMI). TNI steady over the past 24 hours at approximately 2.0; no increase in CK. EKG: no significant changes. +JVD; bilateral rales. CXR: enlarged heart; marked vascular congestion. Imp: demand ischemia, with acute systolic CHF a principal contributer. Continue hemodialysis; fluid removal is crucial. IV heparin can be stopped. Continue ASA and clopidogrel. On nitropaste (chest pain; preload reduction). F?u BUN/Cr, electrolytes, daily weight, Is and Os. Code(s): R74.8 - ABNORMAL LEVELS OF OTHER SERUM ENZYMES (7) HLD (hyperlipidemia) Assessment/Plan: On statin (increased dose to 80 mg daily) Code(s): E78.5 - HYPERLIPIDEMIA, UNSPECIFIED Qualifiers: Hyperlipidemia type: unspecified Qualified Code(s): E78.5 - Hyperlipidemia , unspecified (8) History of heart artery stent Code(s): Z95.5 - PRESENCE OF CORONARY ANGIOPLASTY IMPLANT AND GRAFT (9) Multiple myeloma Code(s): C90.00 - MULTIPLE MYELOMA NOT HAVING ACHIEVED REMISSION Qualifiers: Multiple myeloma remission status: not in remission Qualified Code(s): C90.00 - Multiple myeloma not having achieved remission (10) Pancytopenia Assessment/Plan: f/u with hem/onc; WBC now WNL. Code(s): D61.818 - OTHER PANCYTOPENIA (11) NSTEMI (non-ST elevated myocardial infarction) Assessment/Plan: Hx NSTEMI ?12/2018-->DE stent of D1 at [facility]. New NSTEMI this admission. Continue ASA and Plavix; atorvastatin; beta blockers (for NSTEMI and systolic CHF) when BP allows, as well as ACEI, ARB, or ENtresto whenn hemodynamically stable. Code(s): I21.4 - NON-ST ELEVATION (NSTEMI) MYOCARDIAL INFARCTION (12) Acute renal insufficiency Code(s): N28.9 - DISORDER OF KIDNEY AND URETER, UNSPECIFIED (13) Hypoalbuminemia Assessment/Plan: for albumin (0.9-->1.5) with hemodialysis. Code(s): E88.09 - OTH DISORDERS OF PLASMA-PROTEIN METABOLISM, NEC (14) Hyperkalemia Assessment/Plan: Now WNL after hemodialysis. Code(s): E87.5 - HYPERKALEMIA (15) Chest pain Assessment/Plan: + chest tightness started suddenly this morning. +JVD; tachypnea. EKG taken during pain: no significant ST-T changes. s/l NTG 0.4 mg given; tightness subsided to 3/6. Start nitropaste. F/u TNI from am blood; repeat now and serially. CXR. Code(s): R07.9 - CHEST PAIN, UNSPECIFIED Qualifiers: Chest pain type: unspecified Qualified Code(s): R07.9 - Chest pain, unspecified (16) PAF (paroxysmal atrial fibrillation) Assessment/Plan: brief runs noted early 2018; not on anticoagulation due to severe anemia, hx GI bleed. Code(s): I48.0 - PAROXYSMAL ATRIAL FIBRILLATION Assessment/Plan CCU time spent : 45 minutes'
[2019-10-18] MEDS ORDERED: NITROGLYCERIN 2% OINTMENT - 1GM PACKET TD ONE (10:17)
--- NOTE | 2019-10-18 10:19 | EKG ---
Test Reason : Blood Pressure : / mmHG Vent. Rate : 094 BPM Atrial Rate : 094 BPM P-R Int : 156 ms QRS Dur : 134 ms QT Int : 366 ms P-R-T Axes : 043 -21 147 degrees QTc Int : 457 ms NORMAL SINUS RHYTHM POSSIBLE LEFT ATRIAL ENLARGEMENT NON-SPECIFIC INTRA-VENTRICULAR CONDUCTION BLOCK CANNOT RULE OUT ANTERIOR INFARCT (CITED ON OR BEFORE 07-OCT-2019) T WAVE ABNORMALITY, CONSIDER LATERAL ISCHEMIA ABNORMAL ECG Confirmed by Moi PALMER, Joseluis ([id number]) on 10/18/2019 10:18:24 AM Referred By[facility] Confirmed By:Joseluis Prater MD
[2019-10-18 10:48] LABS: PLATELET ESTIMATE ADEQUATE
[2019-10-18] MEDS ORDERED: FUROSEMIDE 40 MG/4 ML INJECTABLE VIAL IVPUSH ONE (11:13)
[2019-10-18] MEDS: NITROGLYCERIN 2% OINTMENT - 1GM PACKET TD SCH ×2 (11:16→17:51)
[2019-10-18] MEDS: CLOPIDOGREL BISULFATE 75 MG TABLET (FP) PO SCH (11:16)
[2019-10-18] MEDS ORDERED: HEPARIN NA (PORCINE) 5,000 UNITS/ML 1ML VIAL IVPUSH PRN ×2 (11:32)
--- NOTE | 2019-10-18 11:38 | PN ---
Teaching Attending Note Name of Resident: Bella Huggins ATTENDING PHYSICIAN STATEMENT I saw and evaluated the patient. I reviewed the resident's note and discussed the case with the resident. I agree with the resident's findings and plan as documented. SUBJECTIVE: Patient seen and examined in the ICU. Awake and alert. Had CP this AM and given SL NTG by cardiology with some benefit. Off pressors. Eyes: Yes: Conjunctiva Clear, EOM Intact HENT: Yes: WNL, Atraumatic, Normocephalic Neck: Yes: WNL, Supple, Trachea Midline Cardiovascular: Yes: WNL, Regular Rate and Rhythm Respiratory: Yes: WNL, Bibasilar rales / rhonchi Gastrointestinal: Yes: WNL, Normal Bowel Sounds Genitourinary: Yes: WNL Musculoskeletal: Yes: WNL Extremities: Yes: WNL Edema: No Integumentary: Yes: WNL Neurological: Yes: WNL, Alert, Oriented ...Motor Strength: WNL Psychiatric: Yes: WNL Labs: Laboratory Results - last 24 hr 10/18/19 10/18/19 06:00 06:00 WBC 7.5 RBC 2.70 L Hgb 8.6 L Hct 26.2 L MCV 97.0 H MCH 31.9 MCHC 32.9 RDW 18.7 H Plt Count 129 L MPV 10.2 Absolute Neuts (auto) 7.0 Neutrophils % 93.1 H Neutrophils % (Manual) 91.7 H Band Neutrophils % 0.0 Lymphocytes % 3.3 L D Lymphocytes % (Manual) 6.2 L D Monocytes % 3.2 L Monocytes % (Manual) 2 L Eosinophils % 0.0 Eosinophils % (Manual) 0.0 Basophils % 0.4 D Basophils % (Manual) 0.0 Myelocytes % (Man) 0 Promyelocytes % (Man) 0 Blast Cells % (Manual) 0 Nucleated RBC % 1 H Metamyelocytes 0 Hypochromia 1+ Platelet Estimate Adequate Platelet Comment No clumping noted Polychromasia 0 Poikilocytosis 1+ Anisocytosis 3+ Microcytosis 2+ Macrocytosis 0 Target Cells 1+ Ovalocytes 1+ Sodium 137 Potassium 4.3 Chloride 96 L Carbon Dioxide 28 Anion Gap 13 BUN 36.9 H Creatinine 2.8 H Est GFR (CKD-EPI)AfAm 18.38 Est GFR (CKD-EPI)NonAf 15.86 Random Glucose 104 Calcium 8.9 Phosphorus 5.0 H Magnesium 2.2 Total Bilirubin 0.4 AST 19 ALT 60 Alkaline Phosphatase 75 Troponin I 1.98 H* Total Protein 6.8 Albumin 1.8 L ASSESSMENT AND PLAN: Acute on Chronic Systolic Heart Failure Cardiogenic Shock Acute on Chronic Renal Failure CAD Acute NSTEMI Paroxysmal Atrial Fibrillation Pneumonia Asthma Multiple Myeloma HTN Hyperlipidemia Hypothyroidism Anemia Hyponatremia - NTG - O2 to keep SpO2 >90% - monitor urine output, creatinine - HD per Renal - daily weights - amiodarone - Normal Transfusion thresholds - inhaled bronchodilators as needed - empiric hydrocortisone - DVT prophylaxis - continue ICU monitoring - (?) Possible transfer to LTAC - Cardiac Telemetry monitoring Dr Bacon
[2019-10-18] MEDS ORDERED: HEPARIN - 25,000 UNIT in SODIUM CHLORIDE 495 ML IV SCH (11:45)
--- NOTE | 2019-10-18 12:05 | PN ---
Progress Note, Physician History of Present Illness: Pt seen and examined at bedside. She is awake and appears comfortable. She denies chest pain. - Current Medication List Current Medications: Active Medications Acetaminophen (Tylenol -) 650 mg PO Q6H PRN PRN Reason: FEVER Last Admin: 10/07/19 21:49 Dose: 650 mg Albuterol/Ipratropium (Duoneb -) 1 amp NEB Q4H PRN PRN Reason: SHORTNESS OF BREATH Allopurinol (Zyloprim -) 100 mg PO DAILY [facility] Last Admin: 10/18/19 09:54 Dose: 100 mg Amiodarone HCl (Cordarone -) 200 mg PO BID [facility] Last Admin: 10/18/19 09:53 Dose: 200 mg Aspirin (Ecotrin -) 81 mg PO DAILY [facility] Last Admin: 10/18/19 09:54 Dose: 81 mg Atorvastatin Calcium (Lipitor -) 80 mg PO HS [facility] Last Admin: 10/17/19 21:29 Dose: 80 mg Clopidogrel Bisulfate (Plavix -) 75 mg PO DAILY [facility] Last Admin: 10/18/19 11:16 Dose: 75 mg Escitalopram Oxalate (Lexapro -) 10 mg PO DAILY [facility] Last Admin: 10/18/19 09:54 Dose: 10 mg Heparin Sodium (Porcine) (Heparin -) 1,000 unit IVPUSH PRN PRN PRN Reason: Heparin Heparin Sodium (Porcine) (Heparin -) 5,000 unit IVPUSH PRN PRN PRN Reason: Heparin Hydrocortisone Sodium Succinate (Solu-Cortef -) 50 mg IVPB Q6H-IV [facility] Last Admin: 10/18/19 09:52 Dose: 50 mg Heparin Sodium (Porcine) 25, (000 unit/ Sodium Chloride) 500 mls @ 16 mls/hr IV TITR [facility]; Protocol Levothyroxine Sodium (Synthroid -) 75 mcg PO DAILY@0700 [facility] Last Admin: 10/18/19 06:17 Dose: 75 mcg Midodrine (Proamatine -) 10 mg PO TID-MID [facility] Last Admin: 10/18/19 09:54 Dose: 10 mg Nitroglycerin (Nitro-Bid 2% Paste -) 0.5 inch TD Q6HPO [facility] Last Admin: 10/18/19 11:16 Dose: Not Given Pantoprazole Sodium (Protonix -) 40 mg PO DAILY [facility] Last Admin: 10/18/19 09:54 Dose: 40 mg Valacyclovir HCl (Valtrex -) 500 mg PO DAILY [facility] Last Admin: 10/18/19 09:56 Dose: 500 mg - Objective Vital Signs: Vital Signs Temperature 97.7 F 10/18/19 10:00 Pulse Rate 96 H 10/18/19 10:00 Respiratory Rate 23 H 10/18/19 10:00 Blood Pressure 103/68 10/18/19 10:00 O2 Sat by Pulse Oximetry (%) 90 L 10/18/19 09:07 Constitutional: Yes: Calm Eyes: Yes: Conjunctiva Clear HENT: Yes: Atraumatic Neck: Yes: Supple Cardiovascular: Yes: S1, S2 Respiratory: Yes: CTA Bilaterally Gastrointestinal: Yes: Soft Genitourinary: Yes: WNL Musculoskeletal: Yes: WNL Edema: Yes Edema: LLE: 1+, RLE: 1+ Neurological: Yes: Oriented Psychiatric: Yes: Oriented Labs: CBC, BMP 10/18/19 06:00 10/18/19 06:00 INR, PTT INR 0.99 (0.83-1.09) 10/07/19 02:55 Problem List - Problems (1) Fluid overload Code(s): E87.70 - FLUID OVERLOAD, UNSPECIFIED (2) CKD (chronic kidney disease) Code(s): N18.9 - CHRONIC KIDNEY DISEASE, UNSPECIFIED Assessment/Plan Current Medications Generic Name Dose Route Start Last Admin Trade Name Freq PRN Reason Stop Dose Admin Acetaminophen 650 mg 09/20/19 22:25 10/07/19 21:49 Tylenol - PO 650 mg Q6H PRN Administration FEVER Albuterol/Ipratropium 1 amp 10/17/19 15:39 Duoneb - NEB Q4H PRN SHORTNESS OF BREATH Allopurinol 100 mg 10/10/19 13:49 10/18/19 09:54 Zyloprim - PO 100 mg DAILY [facility] Administration Amiodarone HCl 200 mg 10/11/19 12:54 10/18/19 09:53 Cordarone - PO 200 mg BID [facility] Administration Aspirin 81 mg 09/25/19 10:00 10/18/19 09:54 Ecotrin - PO 81 mg DAILY [facility] Administration Atorvastatin Calcium 80 mg 10/14/19 22:00 10/17/19 21:29 Lipitor - PO 80 mg HS [facility] Administration Clopidogrel Bisulfate 75 mg 10/18/19 10:30 10/18/19 11:16 Plavix - PO 75 mg DAILY [facility] Administration Escitalopram Oxalate 10 mg 09/21/19 10:00 10/18/19 09:54 Lexapro - PO 10 mg DAILY [facility] Administration Heparin Sodium (Porcine) 1,000 unit 10/18/19 11:32 Heparin - IVPUSH PRN PRN Heparin Heparin Sodium (Porcine) 5,000 unit 10/18/19 11:32 Heparin - IVPUSH PRN PRN Heparin Hydrocortisone Sodium Succinate 50 mg 10/07/19 16:00 10/18/19 09:52 Solu-Cortef - IVPB 50 mg Q6H-IV [facility] Administration Heparin Sodium (Porcine) 25, 500 mls @ 16 mls/hr 10/18/19 11:45 000 unit/ Sodium Chloride IV TITR [facility] Protocol 800 UNIT/HR Levothyroxine Sodium 75 mcg 09/21/19 07:00 10/18/19 06:17 Synthroid - PO 75 mcg DAILY@0700 [facility] Administration Midodrine 10 mg 10/06/19 18:00 10/18/19 09:54 Proamatine - PO 10 mg TID-MID [facility] Administration Nitroglycerin 0.5 inch 10/18/19 12:00 10/18/19 11:16 Nitro-Bid 2% Paste - TD Not Given Q6HPO [facility] Pantoprazole Sodium 40 mg 09/21/19 10:00 10/18/19 09:54 Protonix - PO 40 mg DAILY [facility] Administration Valacyclovir HCl 500 mg 09/21/19 10:00 10/18/19 09:56 Valtrex - PO 500 mg DAILY [facility] Administration Impression 1. proteinuria 2. multiple myeloma 3. amyloid 4. dizziness 5. hypotension 6. HLD 7. hypothyroidism 8. anemia 9. CKD 10. fluid overload 11. hypotension 12. hyperkalemia 13. nstemi 14. DEBBIE Plan - lasix today - HD tomorrow - will need permacath once stable - pt remains oliguric - prognosis is poor
[2019-10-18] MEDS ORDERED: SODIUM CHLORIDE 250 ML IV PRN (12:06)
--- NOTE | 2019-10-18 14:46 | PN ---
Physical Exam: SUBJECTIVE: Patient seen and examined in the morning. No acute events overnight , no events on telemetry monitoring. Patient has complaints of chest tightness, rated at 6/10. No complaints shortness of breath, abdominal pain, nausea, vomiting, diarrhea. Patient received hemodialysis in the morning. OBJECTIVE: Vital Signs Period Temp Pulse Resp BP Sys/Moss Pulse Ox Last 24 Hr 97.7 F-98.2 F 75-96 16-29 95-108/54-68 90-99 GENERAL: The patient is awake, alert, and fully oriented, in no acute distress. HEAD: Normal with no signs of trauma. EYES: PERRL, extraocular movements intact, sclera anicteric, conjunctiva clear. NECK: Trachea midline, full range of motion, supple. Central line in place on the left side. Day 5 of placement. LUNGS: Breath sounds equal, clear to auscultation bilaterally HEART: Regular rate and rhythm, S1, S2 without murmur, rub or gallop. ABDOMEN: Soft, nontender, nondistended, normoactive bowel sounds, no guarding, no rebound. EXTREMITIES: 2+ pulses, warm, well-perfused, no edema. PSYCH: Normal mood, normal affect. SKIN: Warm, dry, normal turgor, no rashes or lesions noted Laboratory Results - last 24 hr 10/18/19 10/18/19 10/18/19 06:00 06:00 11:30 WBC 7.5 RBC 2.70 L Hgb 8.6 L Hct 26.2 L MCV 97.0 H MCH 31.9 MCHC 32.9 RDW 18.7 H Plt Count 129 L MPV 10.2 Absolute Neuts (auto) 7.0 Neutrophils % 93.1 H Neutrophils % (Manual) 91.7 H Band Neutrophils % 0.0 Lymphocytes % 3.3 L D Lymphocytes % (Manual) 6.2 L D Monocytes % 3.2 L Monocytes % (Manual) 2 L Eosinophils % 0.0 Eosinophils % (Manual) 0.0 Basophils % 0.4 D Basophils % (Manual) 0.0 Myelocytes % (Man) 0 Promyelocytes % (Man) 0 Blast Cells % (Manual) 0 Nucleated RBC % 1 H Metamyelocytes 0 Hypochromia 1+ Platelet Estimate Adequate Platelet Comment No clumping noted Polychromasia 0 Poikilocytosis 1+ Anisocytosis 3+ Microcytosis 2+ Macrocytosis 0 Target Cells 1+ Ovalocytes 1+ Sodium 137 Potassium 4.3 Chloride 96 L Carbon Dioxide 28 Anion Gap 13 BUN 36.9 H Creatinine 2.8 H Est GFR (CKD-EPI)AfAm 18.38 Est GFR (CKD-EPI)NonAf 15.86 Random Glucose 104 Calcium 8.9 Phosphorus 5.0 H Magnesium 2.2 Total Bilirubin 0.4 AST 19 ALT 60 Alkaline Phosphatase 75 Creatine Kinase 71 69 Troponin I 1.98 H* 2.01 H* Total Protein 6.8 Albumin 1.8 L Active Medications Generic Name Dose Route Start Last Admin Trade Name Freq PRN Reason Stop Dose Admin Acetaminophen 650 mg 09/20/19 22:25 10/07/19 21:49 Tylenol - PO 650 mg Q6H PRN Administration FEVER Albuterol/Ipratropium 1 amp 10/17/19 15:39 Duoneb - NEB Q4H PRN SHORTNESS OF BREATH Allopurinol 100 mg 10/10/19 13:49 10/18/19 09:54 Zyloprim - PO 100 mg DAILY [facility] Administration Amiodarone HCl 200 mg 10/11/19 12:54 10/18/19 09:53 Cordarone - PO 200 mg BID [facility] Administration Aspirin 81 mg 09/25/19 10:00 10/18/19 09:54 Ecotrin - PO 81 mg DAILY [facility] Administration Atorvastatin Calcium 80 mg 10/14/19 22:00 10/17/19 21:29 Lipitor - PO 80 mg HS [facility] Administration Clopidogrel Bisulfate 75 mg 10/18/19 10:30 10/18/19 11:16 Plavix - PO 75 mg DAILY [facility] Administration Escitalopram Oxalate 10 mg 09/21/19 10:00 10/18/19 09:54 Lexapro - PO 10 mg DAILY [facility] Administration Heparin Sodium (Porcine) 1,000 unit 10/18/19 11:32 Heparin - IVPUSH PRN PRN Heparin Heparin Sodium (Porcine) 5,000 unit 10/18/19 11:32 Heparin - IVPUSH PRN PRN Heparin Hydrocortisone Sodium Succinate 50 mg 10/07/19 16:00 10/18/19 14:31 Solu-Cortef - IVPB 50 mg Q6H-IV [facility] Administration Heparin Sodium (Porcine) 25, 500 mls @ 16 mls/hr 10/18/19 11:45 10/18/19 13: 19 000 unit/ Sodium Chloride IV 800 unit/hr TITR [facility] 16 mls/hr Administration Protocol 800 UNIT/HR Sodium Chloride 250 mls @ 3,000 mls/hr 10/18/19 12:06 Normal Saline - IV 10/19/19 12:06 PRN PRN Hypotension during Dialysis Levothyroxine Sodium 75 mcg 09/21/19 07:00 10/18/19 06:17 Synthroid - PO 75 mcg DAILY@0700 [facility] Administration Midodrine 10 mg 10/06/19 18:00 10/18/19 14:31 Proamatine - PO 10 mg TID-MID [facility] Administration Nitroglycerin 0.5 inch 10/18/19 12:00 10/18/19 11:16 Nitro-Bid 2% Paste - TD Not Given Q6HPO [facility] Pantoprazole Sodium 40 mg 09/21/19 10:00 10/18/19 09:54 Protonix - PO 40 mg DAILY [facility] Administration Valacyclovir HCl 500 mg 09/21/19 10:00 10/18/19 09:56 Valtrex - PO 500 mg DAILY [facility] Administration ASSESSMENT/PLAN: 73 F PMH of multiple myeloma, amyloidosis, chronic anemia, HTN, HLD, hypothyroidism, GERD, admitted for UGIB, renal failure, volume overload, transferred to the ICU due to hypotension refractory to IVF boluses. Neuro -AOX3. -Lexapro 10 mg PO Daily Cardio -Troponin I: 1.98, repeat was 2.01. No acute changes on EKG. Discussed with Cardiology- Dr. Burgess. -Heparin Drip started -Nitro paste Q6H -Nitro SL given once -Cardiogenic Shock: Midodrine 10 mg PO TID. Norepi d/c -Tachycardia: Amiodarone 200 mg BID -ASA 81 -Atorvastatin 40 mg Pulm -NC 4L -Duonebs PRN -Hydrocortisone 50 mg Q6H GI -FOBT negative -GI consulted, deferred workup on initial consultation. -Hgb/Hct stable Renal -Creatinine 2.8 today. -HD tomorrow. -Will likely need permacath -Nephrology consulted, appreciate recs Heme/Onc -Multiple Myeloma: Allopurinol 100 mg PO Daily -Potassium 4.7 today -Hgb 7.9 today -Has had 2 irradiated units transfused during admission Endo -Hx of hypothyroidism on levothyroxine ID -Completed course of Abx. -Continue monitoring -ID consulted, following patient, appreciate recs F: No fluids E: Monitor CMP N: Soft diet DVT PPX: Heparin Drip GI PPX: Protonix 40 mg Dispo:VTach during day. Unstable. Visit type - Emergency Visit Emergency Visit: Yes ED Registration Date: 09/20/19 Care time: The patient presented to the Emergency Department on the above date and was hospitalized for further evaluation of their emergent condition. - New Patient This patient is new to me today: No - Critical Care Critical Care patient: Yes Total Critical Care Time (in minutes): 45 Critical Care Statement: The care of this patient involved high complexity decision making to prevent further life threatening deterioration of the patient 's condition and/or to evaluate & treat vital organ system(s) failure or risk of failure. ATTENDING PHYSICIAN STATEMENT I saw and evaluated the patient. I reviewed the resident's note and discussed the case with the resident. I agree with the resident's findings and plan as documented. SUBJECTIVE: OBJECTIVE: ASSESSMENT AND PLAN:
--- NOTE | 2019-10-18 20:39 | PN ---
Progress Note, Physician History of Present Illness: Pt is alert, extremely weak. Chest pain is better but still with c/o SOB , O2 sat 94% on NC. Afebrile. - Current Medication List Current Medications: Active Medications Acetaminophen (Tylenol -) 650 mg PO Q6H PRN PRN Reason: FEVER Last Admin: 10/07/19 21:49 Dose: 650 mg Albuterol/Ipratropium (Duoneb -) 1 amp NEB Q4H PRN PRN Reason: SHORTNESS OF BREATH Allopurinol (Zyloprim -) 100 mg PO DAILY [facility] Last Admin: 10/18/19 09:54 Dose: 100 mg Amiodarone HCl (Cordarone -) 200 mg PO BID [facility] Last Admin: 10/18/19 09:53 Dose: 200 mg Aspirin (Ecotrin -) 81 mg PO DAILY [facility] Last Admin: 10/18/19 09:54 Dose: 81 mg Atorvastatin Calcium (Lipitor -) 80 mg PO HS [facility] Last Admin: 10/17/19 21:29 Dose: 80 mg Clopidogrel Bisulfate (Plavix -) 75 mg PO DAILY [facility] Last Admin: 10/18/19 11:16 Dose: 75 mg Escitalopram Oxalate (Lexapro -) 10 mg PO DAILY [facility] Last Admin: 10/18/19 09:54 Dose: 10 mg Heparin Sodium (Porcine) (Heparin -) 1,000 unit IVPUSH PRN PRN PRN Reason: Heparin Heparin Sodium (Porcine) (Heparin -) 5,000 unit IVPUSH PRN PRN PRN Reason: Heparin Hydrocortisone Sodium Succinate (Solu-Cortef -) 50 mg IVPB Q6H-IV [facility] Last Admin: 10/18/19 14:31 Dose: 50 mg Heparin Sodium (Porcine) 25, (000 unit/ Sodium Chloride) 500 mls @ 16 mls/hr IV TITR [facility]; Protocol Last Admin: 10/18/19 13:19 Dose: 800 unit/hr, 16 mls/hr Sodium Chloride (Normal Saline -) 250 mls @ 3,000 mls/hr IV PRN PRN PRN Reason: Hypotension during Dialysis Stop: 10/19/19 12:06 Levothyroxine Sodium (Synthroid -) 75 mcg PO DAILY@0700 [facility] Last Admin: 10/18/19 06:17 Dose: 75 mcg Midodrine (Proamatine -) 10 mg PO TID-MID [facility] Last Admin: 10/18/19 17:52 Dose: 10 mg Nitroglycerin (Nitro-Bid 2% Paste -) 0.5 inch TD Q6HPO [facility] Last Admin: 10/18/19 17:51 Dose: 0.5 inch Pantoprazole Sodium (Protonix -) 40 mg PO DAILY [facility] Last Admin: 10/18/19 09:54 Dose: 40 mg Valacyclovir HCl (Valtrex -) 500 mg PO DAILY [facility] Last Admin: 10/18/19 09:56 Dose: 500 mg - Objective Vital Signs: Vital Signs Temperature 97.9 F 10/18/19 18:00 Pulse Rate 92 H 10/18/19 20:00 Respiratory Rate 22 H 10/18/19 20:00 Blood Pressure 111/65 10/18/19 20:00 O2 Sat by Pulse Oximetry (%) 96 10/18/19 20:00 Constitutional: Yes: Mild Distress Cardiovascular: Yes: Tachycardia Respiratory: Yes: Diminished, On Nasal O2 Gastrointestinal: Yes: Normal Bowel Sounds, Soft Genitourinary: Yes: [place] Present Edema: Yes Edema: LLE: 1+, RLE: 1+ Integumentary: Yes: WNL Neurological: Yes: Alert, Weakness Labs: CBC, BMP 10/18/19 06:00 10/18/19 06:00 INR, PTT INR 0.99 (0.83-1.09) 10/07/19 02:55 Laboratory Results - last 24 hr 10/18/19 10/18/19 10/18/19 06:00 06:00 11:30 WBC 7.5 RBC 2.70 L Hgb 8.6 L Hct 26.2 L MCV 97.0 H MCH 31.9 MCHC 32.9 RDW 18.7 H Plt Count 129 L MPV 10.2 Absolute Neuts (auto) 7.0 Neutrophils % 93.1 H Neutrophils % (Manual) 91.7 H Band Neutrophils % 0.0 Lymphocytes % 3.3 L D Lymphocytes % (Manual) 6.2 L D Monocytes % 3.2 L Monocytes % (Manual) 2 L Eosinophils % 0.0 Eosinophils % (Manual) 0.0 Basophils % 0.4 D Basophils % (Manual) 0.0 Myelocytes % (Man) 0 Promyelocytes % (Man) 0 Blast Cells % (Manual) 0 Nucleated RBC % 1 H Metamyelocytes 0 Hypochromia 1+ Platelet Estimate Adequate Platelet Comment No clumping noted Polychromasia 0 Poikilocytosis 1+ Anisocytosis 3+ Microcytosis 2+ Macrocytosis 0 Target Cells 1+ Ovalocytes 1+ Sodium 137 Potassium 4.3 Chloride 96 L Carbon Dioxide 28 Anion Gap 13 BUN 36.9 H Creatinine 2.8 H Est GFR (CKD-EPI)AfAm 18.38 Est GFR (CKD-EPI)NonAf 15.86 Random Glucose 104 Calcium 8.9 Phosphorus 5.0 H Magnesium 2.2 Total Bilirubin 0.4 AST 19 ALT 60 Alkaline Phosphatase 75 Creatine Kinase 71 69 Troponin I 1.98 H* 2.01 H* Total Protein 6.8 Albumin 1.8 L 10/18/19 17:50 WBC RBC Hgb Hct MCV MCH MCHC RDW Plt Count MPV Absolute Neuts (auto) Neutrophils % Neutrophils % (Manual) Band Neutrophils % Lymphocytes % Lymphocytes % (Manual) Monocytes % Monocytes % (Manual) Eosinophils % Eosinophils % (Manual) Basophils % Basophils % (Manual) Myelocytes % (Man) Promyelocytes % (Man) Blast Cells % (Manual) Nucleated RBC % Metamyelocytes Hypochromia Platelet Estimate Platelet Comment Polychromasia Poikilocytosis Anisocytosis Microcytosis Macrocytosis Target Cells Ovalocytes Sodium Potassium Chloride Carbon Dioxide Anion Gap BUN Creatinine Est GFR (CKD-EPI)AfAm Est GFR (CKD-EPI)NonAf Random Glucose Calcium Phosphorus Magnesium Total Bilirubin AST ALT Alkaline Phosphatase Creatine Kinase Troponin I 2.16 H* Total Protein Albumin Microbiology 09/20/19 04:16 Blood - Peripheral Venous Blood Culture - Final NO GROWTH AFTER 5 DAYS INCUBATION 09/20/19 06:26 Urine - Urine Clean Catch Urine Culture - Final Strep Agalactiae Group B - ....Imaging Chest X-ray: Report Reviewed Problem List - Problems (1) Depression Code(s): F32.9 - MAJOR DEPRESSIVE DISORDER, SINGLE EPISODE, UNSPECIFIED (2) ASHD (arteriosclerotic heart disease) Code(s): I25.10 - ATHSCL HEART DISEASE OF [place] CORONARY ARTERY W/O ANG PCTRS (3) Acute on chronic renal failure Code(s): N17.9 - ACUTE KIDNEY FAILURE, UNSPECIFIED; N18.9 - CHRONIC KIDNEY DISEASE, UNSPECIFIED Qualifiers: Chronic kidney disease stage: stage 2 (mild) (4) Acute on chronic systolic CHF (congestive heart failure) Code(s): I50.23 - ACUTE ON CHRONIC SYSTOLIC (CONGESTIVE) HEART FAILURE (5) Anemia Code(s): D64.9 - ANEMIA, UNSPECIFIED Qualifiers: Chronic kidney disease stage: unspecified stage (6) CAD (coronary artery disease) Code(s): I25.10 - ATHSCL HEART DISEASE OF [place] CORONARY ARTERY W/O ANG PCTRS Qualifiers: (7) CHF (congestive heart failure) Code(s): I50.9 - HEART FAILURE, UNSPECIFIED Qualifiers: Heart failure type: systolic Heart failure chronicity: unspecified Qualified Code(s): I50.20 - Unspecified systolic (congestive) heart failure (8) Hypothyroidism Code(s): E03.9 - HYPOTHYROIDISM, UNSPECIFIED Qualifiers: Hypothyroidism type: acquired Qualified Code(s): E03.9 - Hypothyroidism, unspecified (9) Multiple myeloma Code(s): C90.00 - MULTIPLE MYELOMA NOT HAVING ACHIEVED REMISSION Qualifiers: Multiple myeloma remission status: not in remission Qualified Code(s): C90.00 - Multiple myeloma not having achieved remission Assessment/Plan UTI Acute on Chronic HF Cardiogenic Shock DEBBIE on CKD Multiple Myeloma Amyloid CAD Anemia Hypothyroidism Asthma Depression -- Pt is alert but weak, afebrile -- s/p course of IV antibiotics, continue monitor -- CXR noted: pleural effusions continue monitor, supportive care cc: 35 min
--- NOTE | 2019-10-18 22:29 | PN ---
Progress Note, Physician - Current Medication List Current Medications: Active Medications Acetaminophen (Tylenol -) 650 mg PO Q6H PRN PRN Reason: FEVER Last Admin: 10/07/19 21:49 Dose: 650 mg Albuterol/Ipratropium (Duoneb -) 1 amp NEB Q4H PRN PRN Reason: SHORTNESS OF BREATH Allopurinol (Zyloprim -) 100 mg PO DAILY [facility] Last Admin: 10/18/19 09:54 Dose: 100 mg Amiodarone HCl (Cordarone -) 200 mg PO BID [facility] Last Admin: 10/18/19 09:53 Dose: 200 mg Aspirin (Ecotrin -) 81 mg PO DAILY [facility] Last Admin: 10/18/19 09:54 Dose: 81 mg Atorvastatin Calcium (Lipitor -) 80 mg PO HS [facility] Last Admin: 10/17/19 21:29 Dose: 80 mg Clopidogrel Bisulfate (Plavix -) 75 mg PO DAILY [facility] Last Admin: 10/18/19 11:16 Dose: 75 mg Escitalopram Oxalate (Lexapro -) 10 mg PO DAILY [facility] Last Admin: 10/18/19 09:54 Dose: 10 mg Heparin Sodium (Porcine) (Heparin -) 1,000 unit IVPUSH PRN PRN PRN Reason: Heparin Heparin Sodium (Porcine) (Heparin -) 5,000 unit IVPUSH PRN PRN PRN Reason: Heparin Hydrocortisone Sodium Succinate (Solu-Cortef -) 50 mg IVPB Q6H-IV [facility] Last Admin: 10/18/19 21:13 Dose: 50 mg Heparin Sodium (Porcine) 25, (000 unit/ Sodium Chloride) 500 mls @ 16 mls/hr IV TITR [facility]; Protocol Last Admin: 10/18/19 13:19 Dose: 800 unit/hr, 16 mls/hr Sodium Chloride (Normal Saline -) 250 mls @ 3,000 mls/hr IV PRN PRN PRN Reason: Hypotension during Dialysis Stop: 10/19/19 12:06 Levothyroxine Sodium (Synthroid -) 75 mcg PO DAILY@0700 [facility] Last Admin: 10/18/19 06:17 Dose: 75 mcg Midodrine (Proamatine -) 10 mg PO TID-MID [facility] Last Admin: 10/18/19 17:52 Dose: 10 mg Nitroglycerin (Nitro-Bid 2% Paste -) 0.5 inch TD Q6HPO [facility] Last Admin: 10/18/19 17:51 Dose: 0.5 inch Pantoprazole Sodium (Protonix -) 40 mg PO DAILY [facility] Last Admin: 10/18/19 09:54 Dose: 40 mg Valacyclovir HCl (Valtrex -) 500 mg PO DAILY [facility] Last Admin: 10/18/19 09:56 Dose: 500 mg - Objective Vital Signs: Vital Signs Temperature 97.9 F 10/18/19 18:00 Pulse Rate 92 H 10/18/19 20:00 Respiratory Rate 22 H 10/18/19 20:00 Blood Pressure 111/65 10/18/19 20:00 O2 Sat by Pulse Oximetry (%) 96 10/18/19 20:00 Labs: CBC, BMP 10/18/19 06:00 10/18/19 06:00 INR, PTT INR 0.99 (0.83-1.09) 10/07/19 02:55 Problem List - Problems (1) Acute on chronic renal failure Code(s): N17.9 - ACUTE KIDNEY FAILURE, UNSPECIFIED; N18.9 - CHRONIC KIDNEY DISEASE, UNSPECIFIED (2) Acute on chronic systolic CHF (congestive heart failure) Code(s): I50.23 - ACUTE ON CHRONIC SYSTOLIC (CONGESTIVE) HEART FAILURE (3) Multiple myeloma Code(s): C90.00 - MULTIPLE MYELOMA NOT HAVING ACHIEVED REMISSION Qualifiers: Multiple myeloma remission status: not in remission Qualified Code(s): C90.00 - Multiple myeloma not having achieved remission (4) HLD (hyperlipidemia) Code(s): E78.5 - HYPERLIPIDEMIA, UNSPECIFIED Qualifiers: Hyperlipidemia type: unspecified Qualified Code(s): E78.5 - Hyperlipidemia , unspecified (5) Hypothyroidism Code(s): E03.9 - HYPOTHYROIDISM, UNSPECIFIED Qualifiers: Hypothyroidism type: acquired Qualified Code(s): E03.9 - Hypothyroidism, unspecified (6) CAD (coronary artery disease) Code(s): I25.10 - ATHSCL HEART DISEASE OF [place] CORONARY ARTERY W/O ANG PCTRS Qualifiers: (7) Depression Code(s): F32.9 - MAJOR DEPRESSIVE DISORDER, SINGLE EPISODE, UNSPECIFIED (8) History of heart artery stent Code(s): Z95.5 - PRESENCE OF CORONARY ANGIOPLASTY IMPLANT AND GRAFT (9) Diarrhea Code(s): R19.7 - DIARRHEA, UNSPECIFIED Qualifiers: Diarrhea type: unspecified type Qualified Code(s): R19.7 - Diarrhea, unspecified (10) UTI (urinary tract infection) Code(s): N39.0 - URINARY TRACT INFECTION, SITE NOT SPECIFIED (11) Elevated troponin Code(s): R74.8 - ABNORMAL LEVELS OF OTHER SERUM ENZYMES
[2019-10-18] MEDS: ATORVASTATIN CA 80 MG TABLET (FP) PO SCH (22:31)
[2019-10-19] MEDS: NITROGLYCERIN 2% OINTMENT - 1GM PACKET TD SCH ×5 (01:00→23:59)
[2019-10-19] MEDS: HYDROCORTISONE SOD SUCCINATE 100 MG/2 ML VIAL IVPB SCH ×3 (02:24→17:22)
[2019-10-19] MEDS: LEVOTHYROXINE NA 75 MCG TABLET (FP) PO SCH (06:00)
[2019-10-19 08:07] LABS: BASO % 0.2 % (0-2.0); HEMATOCRIT 25.9 % (32.4-45.2); HEMOGLOBIN 8.6 GM/dL (10.7-15.3); LYMPH % 1.4 % (8-40); MCH 32.5 pg (25.7-33.7); MCHC 33.2 g/dl (32.0-36.0); MEAN CELL VOLUME 97.8 fl (80-96); MEAN PLT VOLUME 10.3 fl (7.5-11.1); MONO % 3.9 % (3.8-10.2); NEUT % 94.5 % (42.8-82.8); PLATELET COUNT 126 K/MM3 (134-434); RBC 2.64 M/mm3 (3.60-5.2); RDW 19.2 % (11.6-15.6); WHITE BLOOD COUNT 9.2 K/mm3 (4.0-10.0)
[2019-10-19 08:21] LABS: ALBUMIN 1.8 g/dl (3.4-5.0); BILIRUBIN,TOTAL 0.4 mg/dL (0.2-1); BLOOD UREA NITROGEN 42.8 mg/dL (7-18); CALCIUM 8.7 mg/dL (8.5-10.1); CREATININE 3.2 mg/dL (0.55-1.3); MAGNESIUM 2.1 mg/dL (1.8-2.4); PHOSPHOROUS 5.9 mg/dL (2.5-4.9); POTASSIUM 4.4 mmol/L (3.5-5.1); TOT PROT 6.4 g/dl (6.4-8.2)
[2019-10-19] MEDS: MIDODRINE HCL 5 MG TABLET PO SCH ×3 (10:42→17:19)
[2019-10-19] MEDS: AMIODARONE HCL 200 MG TABLET (FP) PO SCH ×2 (10:42→21:41)
[2019-10-19] MEDS: ALLOPURINOL 100 MG TABLET (FP) PO SCH (10:42)
[2019-10-19] MEDS: PANTOPRAZOLE 40 MG TABLET (FP) PO SCH (10:43)
[2019-10-19] MEDS: CLOPIDOGREL BISULFATE 75 MG TABLET (FP) PO SCH (10:43)
[2019-10-19] MEDS: ESCITALOPRAM OXALATE 10 MG TABLET (FP) PO SCH (10:43)
[2019-10-19] MEDS: ASPIRIN COATED 81 MG TABLET.EC PO SCH (10:46)
[2019-10-19] MEDS ORDERED: PT OWN MED DRAWER 7, Y5N ONE (10:50)
[2019-10-19] MEDS: valACYclovir HCL 500 MG TABLET (FP) PO SCH (10:51)
--- NOTE | 2019-10-19 11:02 | PN ---
Progress Note, Physician Chief Complaint: Pt A&Ox3; on BIpap; tired; no chest pain; depressed. History of Present Illness: 74 year old black female with PMH multiple myeloma, amyloidosis (s/p chemotherapy, abdomen-directed radiation Tx), HTN, HLD, CAD: NSEMI early 2018--> DE stent of D1 at [facility], GERD, ? "mild" systolic CHF (now noted severely reduced LVEF on ECHO), on Lasix, rectal hemorrhoids, PAF (brief runs early 2018 ; not on anticoagulation due to severe anemia, hx GI bleed), now presented to ED for diarrhea x2 days associated with generalized weakness, ROGERS. Pt reported she has had loose, watery diarrhea x2 days, and prior to that he had rectal bleeding x2 days (on toilet paper and mixed in stool) that self resolved. She reported she only noticed the bleeding because it was on the toilet paper, as she did not have abdominal or rectal pain. Pt reported generalized weakness and ROGERS, which prompted her to come to the ED. Pt denied nausea, vomiting, fever, abdominal pain, chest pain, increased LE swelling. She reported she believed her lower extremity swelling is actually improving. She also reported noticing a new "rash" to her right hip since last week. - Current Medication List Current Medications: Active Medications Acetaminophen (Tylenol -) 650 mg PO Q6H PRN PRN Reason: FEVER Last Admin: 10/07/19 21:49 Dose: 650 mg Albuterol/Ipratropium (Duoneb -) 1 amp NEB Q4H PRN PRN Reason: SHORTNESS OF BREATH Allopurinol (Zyloprim -) 100 mg PO DAILY [facility] Last Admin: 10/18/19 09:54 Dose: 100 mg Amiodarone HCl (Cordarone -) 200 mg PO BID [facility] Last Admin: 10/18/19 22:32 Dose: 200 mg Aspirin (Ecotrin -) 81 mg PO DAILY [facility] Last Admin: 10/18/19 09:54 Dose: 81 mg Atorvastatin Calcium (Lipitor -) 80 mg PO HS [facility] Last Admin: 10/18/19 22:31 Dose: 80 mg Clopidogrel Bisulfate (Plavix -) 75 mg PO DAILY [facility] Last Admin: 10/18/19 11:16 Dose: 75 mg Escitalopram Oxalate (Lexapro -) 10 mg PO DAILY [facility] Last Admin: 10/18/19 09:54 Dose: 10 mg Heparin Sodium (Porcine) (Heparin -) 1,000 unit IVPUSH PRN PRN PRN Reason: Heparin Heparin Sodium (Porcine) (Heparin -) 5,000 unit IVPUSH PRN PRN PRN Reason: Heparin Hydrocortisone Sodium Succinate (Solu-Cortef -) 50 mg IVPB Q6H-IV [facility] Last Admin: 10/19/19 09:41 Dose: 50 mg Heparin Sodium (Porcine) 25, (000 unit/ Sodium Chloride) 500 mls @ 16 mls/hr IV TITR [facility]; Protocol Last Titration: 10/19/19 09:01 Dose: 800 unit/hr, 16 mls/hr Sodium Chloride (Normal Saline -) 250 mls @ 3,000 mls/hr IV PRN PRN PRN Reason: Hypotension during Dialysis Stop: 10/19/19 12:06 Levothyroxine Sodium (Synthroid -) 75 mcg PO DAILY@0700 [facility] Last Admin: 10/19/19 06:00 Dose: 75 mcg Midodrine (Proamatine -) 10 mg PO TID-MID [facility] Last Admin: 10/18/19 17:52 Dose: 10 mg Nitroglycerin (Nitro-Bid 2% Paste -) 0.5 inch TD Q6HPO [facility] Last Admin: 10/19/19 05:56 Dose: 0.5 inch Pantoprazole Sodium (Protonix -) 40 mg PO DAILY [facility] Last Admin: 10/18/19 09:54 Dose: 40 mg Valacyclovir HCl (Valtrex -) 500 mg PO DAILY [facility] Last Admin: 10/18/19 09:56 Dose: 500 mg - Objective Vital Signs: Vital Signs Temperature 98.5 F 10/19/19 06:55 Pulse Rate 75 10/19/19 09:30 Respiratory Rate 18 10/19/19 09:30 Blood Pressure 117/72 10/19/19 09:30 O2 Sat by Pulse Oximetry (%) 100 10/19/19 08:20 Constitutional: Yes: Anxious Eyes: Yes: WNL HENT: Yes: WNL Neck: Yes: WNL Cardiovascular: Yes: S1, S2 Respiratory: Yes: Diminished, SOB Gastrointestinal: Yes: Soft ...Rectal Exam: Yes: Deferred Genitourinary: No: Anuria Breast(s): Yes: WNL Musculoskeletal: Yes: Muscle Weakness Extremities: Yes: Cool Edema: Yes Edema: LUE: 1+, RUE: 1+ Peripheral Pulses WNL: No Peripheral Pulses: Left Doralis Pedis: 1+, Right Dorsalis Pedis: 1+ Integumentary: Yes: WNL Neurological: Yes: Alert, Oriented, Weakness Labs: CBC, BMP 10/19/19 05:30 10/19/19 05:30 INR, PTT INR 0.99 (0.83-1.09) 10/07/19 02:55 - ....Imaging Chest X-ray: Image Reviewed EKG: Image Reviewed Problem List - Problems (1) Weakness Code(s): R53.1 - WEAKNESS (2) ASHD (arteriosclerotic heart disease) Code(s): I25.10 - ATHSCL HEART DISEASE OF [place] CORONARY ARTERY W/O ANG PCTRS (3) Acute on chronic systolic CHF (congestive heart failure) Assessment/Plan: Pt remains on PO amiodarone 200 bid (change to 100 mg bid after 2 weeks on present dose); on IV Solucortef. Fragile hemodynamics precludes restarting ACEI, spironolactone. Now on regular hemodialysis. F/u BUN/Cr, electrolytes, Is and Os, daily weight. Code(s): I50.23 - ACUTE ON CHRONIC SYSTOLIC (CONGESTIVE) HEART FAILURE (4) Adult onset hypothyroidism Assessment/Plan: mildly elevated TSH; normal Free T4 in ICU setting. Code(s): E03.8 - OTHER SPECIFIED HYPOTHYROIDISM (5) Anxiety Code(s): F41.9 - ANXIETY DISORDER, UNSPECIFIED (6) Elevated troponin Assessment/Plan: Pt with chest pain and SOB yesterday; TNI noted elevated (though lower than one week ago during NSTEMI). TNI stgeady over the past 24 hours at approximately 2.0; no increase in CK. EKG: no significant changes. +JVD; bilateral rales. CXR: enlarged heart; marked vascular congestion. Imp: demand ischemia, with acute systolic CHF a principal contributer. Continue hemodialysis; fluid removal is crucial. IV heparin can be stopped. Continue ASA and clopidogrel. On nitropaste (chest pain; preload reduction). F?u BUN/Cr, electrolytes, daily weight, Is and Os. Code(s): R74.8 - ABNORMAL LEVELS OF OTHER SERUM ENZYMES (7) HLD (hyperlipidemia) Code(s): E78.5 - HYPERLIPIDEMIA, UNSPECIFIED Qualifiers: Hyperlipidemia type: unspecified Qualified Code(s): E78.5 - Hyperlipidemia , unspecified (8) History of heart artery stent Code(s): Z95.5 - PRESENCE OF CORONARY ANGIOPLASTY IMPLANT AND GRAFT (9) Multiple myeloma Code(s): C90.00 - MULTIPLE MYELOMA NOT HAVING ACHIEVED REMISSION Qualifiers: Multiple myeloma remission status: not in remission Qualified Code(s): C90.00 - Multiple myeloma not having achieved remission (10) Pancytopenia Code(s): D61.818 - OTHER PANCYTOPENIA (11) NSTEMI (non-ST elevated myocardial infarction) Code(s): I21.4 - NON-ST ELEVATION (NSTEMI) MYOCARDIAL INFARCTION (12) Acute renal insufficiency Code(s): N28.9 - DISORDER OF KIDNEY AND URETER, UNSPECIFIED (13) Hypoalbuminemia Code(s): E88.09 - OTH DISORDERS OF PLASMA-PROTEIN METABOLISM, NEC (14) Hyperkalemia Code(s): E87.5 - HYPERKALEMIA (15) Chest pain Code(s): R07.9 - CHEST PAIN, UNSPECIFIED Qualifiers: Chest pain type: unspecified Qualified Code(s): R07.9 - Chest pain, unspecified (16) PAF (paroxysmal atrial fibrillation) Assessment/Plan: brief runs noted early 2018; not on anticoagulation due to severe anemia, hx GI bleed. On amiodarone. Code(s): I48.0 - PAROXYSMAL ATRIAL FIBRILLATION (17) Renal failure Assessment/Plan: on hemodialysis Code(s): N19 - UNSPECIFIED KIDNEY FAILURE
[2019-10-19 11:14] LABS: ANISOCYTOSIS 3+; MACROCYTOSIS 1+; PLATELET ESTIMATE DECREASED
--- NOTE | 2019-10-19 11:15 | PN ---
Progress Note, Physician Chief Complaint: Pt seen and examined at bedside. She tolerated HD with UF today. She feels that her breathing is improving. - Current Medication List Current Medications: Active Medications Acetaminophen (Tylenol -) 650 mg PO Q6H PRN PRN Reason: FEVER Last Admin: 10/07/19 21:49 Dose: 650 mg Albuterol/Ipratropium (Duoneb -) 1 amp NEB Q4H PRN PRN Reason: SHORTNESS OF BREATH Allopurinol (Zyloprim -) 100 mg PO DAILY [facility] Last Admin: 10/19/19 10:42 Dose: 100 mg Amiodarone HCl (Cordarone -) 200 mg PO BID [facility] Last Admin: 10/19/19 10:42 Dose: 200 mg Aspirin (Ecotrin -) 81 mg PO DAILY [facility] Last Admin: 10/19/19 10:46 Dose: 81 mg Atorvastatin Calcium (Lipitor -) 80 mg PO HS [facility] Last Admin: 10/18/19 22:31 Dose: 80 mg Clopidogrel Bisulfate (Plavix -) 75 mg PO DAILY [facility] Last Admin: 10/19/19 10:43 Dose: 75 mg Escitalopram Oxalate (Lexapro -) 10 mg PO DAILY [facility] Last Admin: 10/19/19 10:43 Dose: 10 mg Heparin Sodium (Porcine) (Heparin -) 1,000 unit IVPUSH PRN PRN PRN Reason: Heparin Heparin Sodium (Porcine) (Heparin -) 5,000 unit IVPUSH PRN PRN PRN Reason: Heparin Hydrocortisone Sodium Succinate (Solu-Cortef -) 50 mg IVPB Q6H-IV [facility] Last Admin: 10/19/19 09:41 Dose: 50 mg Heparin Sodium (Porcine) 25, (000 unit/ Sodium Chloride) 500 mls @ 16 mls/hr IV TITR [facility]; Protocol Last Titration: 10/19/19 09:01 Dose: 800 unit/hr, 16 mls/hr Sodium Chloride (Normal Saline -) 250 mls @ 3,000 mls/hr IV PRN PRN PRN Reason: Hypotension during Dialysis Stop: 10/19/19 12:06 Levothyroxine Sodium (Synthroid -) 75 mcg PO DAILY@0700 [facility] Last Admin: 10/19/19 06:00 Dose: 75 mcg Midodrine (Proamatine -) 10 mg PO TID-MID [facility] Last Admin: 10/19/19 10:42 Dose: 10 mg Nitroglycerin (Nitro-Bid 2% Paste -) 0.5 inch TD Q6HPO [facility] Last Admin: 10/19/19 05:56 Dose: 0.5 inch Pantoprazole Sodium (Protonix -) 40 mg PO DAILY [facility] Last Admin: 10/19/19 10:43 Dose: 40 mg Valacyclovir HCl (Valtrex -) 500 mg PO DAILY [facility] Last Admin: 10/19/19 10:51 Dose: 500 mg - Objective Vital Signs: Vital Signs Temperature 98.5 F 10/19/19 06:55 Pulse Rate 75 10/19/19 10:20 Respiratory Rate 15 10/19/19 10:20 Blood Pressure 113/73 10/19/19 10:20 O2 Sat by Pulse Oximetry (%) 100 10/19/19 08:20 Constitutional: Yes: Calm Eyes: Yes: Conjunctiva Clear HENT: Yes: Atraumatic Neck: Yes: Supple Cardiovascular: Yes: S1, S2 Respiratory: Yes: CTA Bilaterally, On Nasal O2 Gastrointestinal: Yes: Soft Genitourinary: Yes: Oliguria Musculoskeletal: Yes: WNL Edema: Yes Edema: LLE: 1+, RLE: 1+ Neurological: Yes: Oriented Psychiatric: Yes: Oriented Labs: CBC, BMP 10/19/19 05:30 10/19/19 05:30 INR, PTT INR 0.99 (0.83-1.09) 10/07/19 02:55 Problem List - Problems (1) Fluid overload Code(s): E87.70 - FLUID OVERLOAD, UNSPECIFIED (2) CKD (chronic kidney disease) Code(s): N18.9 - CHRONIC KIDNEY DISEASE, UNSPECIFIED Assessment/Plan Current Medications Generic Name Dose Route Start Last Admin Trade Name Freq PRN Reason Stop Dose Admin Acetaminophen 650 mg 09/20/19 22:25 10/07/19 21:49 Tylenol - PO 650 mg Q6H PRN Administration FEVER Albuterol/Ipratropium 1 amp 10/17/19 15:39 Duoneb - NEB Q4H PRN SHORTNESS OF BREATH Allopurinol 100 mg 10/10/19 13:49 10/19/19 10:42 Zyloprim - PO 100 mg DAILY [facility] Administration Amiodarone HCl 200 mg 10/11/19 12:54 10/19/19 10:42 Cordarone - PO 200 mg BID [facility] Administration Aspirin 81 mg 09/25/19 10:00 10/19/19 10:46 Ecotrin - PO 81 mg DAILY [facility] Administration Atorvastatin Calcium 80 mg 10/14/19 22:00 10/18/19 22:31 Lipitor - PO 80 mg HS [facility] Administration Clopidogrel Bisulfate 75 mg 10/18/19 10:30 10/19/19 10:43 Plavix - PO 75 mg DAILY [facility] Administration Escitalopram Oxalate 10 mg 09/21/19 10:00 10/19/19 10:43 Lexapro - PO 10 mg DAILY [facility] Administration Heparin Sodium (Porcine) 1,000 unit 10/18/19 11:32 Heparin - IVPUSH PRN PRN Heparin Heparin Sodium (Porcine) 5,000 unit 10/18/19 11:32 Heparin - IVPUSH PRN PRN Heparin Hydrocortisone Sodium Succinate 50 mg 10/07/19 16:00 10/19/19 09:41 Solu-Cortef - IVPB 50 mg Q6H-IV [facility] Administration Heparin Sodium (Porcine) 25, 500 mls @ 16 mls/hr 10/18/19 11:45 10/19/19 09: 01 000 unit/ Sodium Chloride IV 800 unit/hr TITR [facility] 16 mls/hr Titration Protocol 800 UNIT/HR Sodium Chloride 250 mls @ 3,000 mls/hr 10/18/19 12:06 Normal Saline - IV 10/19/19 12:06 PRN PRN Hypotension during Dialysis Levothyroxine Sodium 75 mcg 09/21/19 07:00 10/19/19 06:00 Synthroid - PO 75 mcg DAILY@0700 [facility] Administration Midodrine 10 mg 10/06/19 18:00 10/19/19 10:42 Proamatine - PO 10 mg TID-MID [facility] Administration Nitroglycerin 0.5 inch 10/18/19 12:00 10/19/19 05:56 Nitro-Bid 2% Paste - TD 0.5 inch Q6HPO [facility] Administration Pantoprazole Sodium 40 mg 09/21/19 10:00 10/19/19 10:43 Protonix - PO 40 mg DAILY [facility] Administration Valacyclovir HCl 500 mg 09/21/19 10:00 10/19/19 10:51 Valtrex - PO 500 mg DAILY [facility] Administration Impression 1. proteinuria 2. multiple myeloma 3. amyloid 4. dizziness 5. hypotension 6. HLD 7. hypothyroidism 8. anemia 9. CKD 10. fluid overload 11. hypotension 12. hyperkalemia 13. nstemi 14. DEBBIE Plan - HD today - will need more group home access - lasix on non HD days - pt remains oliguric - prognosis is poor - discussed with heme onc
--- NOTE | 2019-10-19 13:23 | PN ---
Teaching Attending Note Name of Resident: Brit Chavez ATTENDING PHYSICIAN STATEMENT I saw and evaluated the patient. I reviewed the resident's note and discussed the case with the resident. I agree with the resident's findings and plan as documented. SUBJECTIVE: Pt seen and examined in the ICU. Placed on BiPAP overnight for chest pain. CXR still with pulmonary edema. Dialyzed this AM. OBJECTIVE: Vital Signs Period Temp Pulse Resp BP Sys/Moss Pulse Ox Last 24 Hr 97.8 F-98.5 F 74-99 15-30 89-117/60-73 92-100 Intake & Output 10/16/19 10/17/19 10/18/19 10/19/19 23:59 23:59 23:59 23:59 Intake Total 178 750 366 734 Output Total 60 2540 50 3040 Balance 118 -1790 316 -2306 Weight 74.435 kg 75.568 kg 72.83 kg 72.291 kg Gen: tachypneic on BiPAP Heart: RRR Lung: scattered rhonchi Abd: soft, nontender Ext: + edema CBC, BMP 10/19/19 05:30 10/19/19 05:30 Active Medications Acetaminophen (Tylenol -) 650 mg PO Q6H PRN PRN Reason: FEVER Last Admin: 10/07/19 21:49 Dose: 650 mg Albuterol/Ipratropium (Duoneb -) 1 amp NEB Q4H PRN PRN Reason: SHORTNESS OF BREATH Allopurinol (Zyloprim -) 100 mg PO DAILY [facility] Last Admin: 10/19/19 10:42 Dose: 100 mg Amiodarone HCl (Cordarone -) 200 mg PO BID [facility] Last Admin: 10/19/19 10:42 Dose: 200 mg Aspirin (Ecotrin -) 81 mg PO DAILY [facility] Last Admin: 10/19/19 10:46 Dose: 81 mg Atorvastatin Calcium (Lipitor -) 80 mg PO HS [facility] Last Admin: 10/18/19 22:31 Dose: 80 mg Clopidogrel Bisulfate (Plavix -) 75 mg PO DAILY [facility] Last Admin: 10/19/19 10:43 Dose: 75 mg Escitalopram Oxalate (Lexapro -) 10 mg PO DAILY [facility] Last Admin: 10/19/19 10:43 Dose: 10 mg Heparin Sodium (Porcine) (Heparin -) 1,000 unit IVPUSH PRN PRN PRN Reason: Heparin Heparin Sodium (Porcine) (Heparin -) 5,000 unit IVPUSH PRN PRN PRN Reason: Heparin Hydrocortisone Sodium Succinate (Solu-Cortef -) 50 mg IVPB Q8H-IV [facility] Sodium Chloride (Normal Saline -) 250 mls @ 3,000 mls/hr IV PRN PRN PRN Reason: Hypotension during Dialysis Stop: 10/19/19 12:06 Levothyroxine Sodium (Synthroid -) 75 mcg PO DAILY@0700 [facility] Last Admin: 10/19/19 06:00 Dose: 75 mcg Midodrine (Proamatine -) 10 mg PO TID-MID [facility] Last Admin: 10/19/19 13:14 Dose: 10 mg Nitroglycerin (Nitro-Bid 2% Paste -) 0.5 inch TD Q6HPO [facility] Last Admin: 10/19/19 12:14 Dose: 0.5 inch Pantoprazole Sodium (Protonix -) 40 mg PO DAILY [facility] Last Admin: 10/19/19 10:43 Dose: 40 mg Valacyclovir HCl (Valtrex -) 500 mg PO DAILY [facility] Last Admin: 10/19/19 10:51 Dose: 500 mg ASSESSMENT AND PLAN: Acute on Chronic Systolic Heart Failure Cardiogenic Shock Acute on Chronic Renal Failure CAD Acute NSTEMI Paroxysmal Atrial Fibrillation Pneumonia Asthma Multiple Myeloma HTN Hyperlipidemia Hypothyroidism Anemia Hyponatremia - HD per renal with ultrafiltration - monitor urine output, creatinine - daily weights - amiodarone - monitor H/H - completed antibiotics - O2 to keep SpO2 >90% - inhaled bronchodilators as needed - BiPAP to assist in work of breathing - taper hydrocortisone - DVT prophylaxis - continue ICU monitoring - poor overall prognosis, continue discussions regarding goals of care critical care time spent in reviewing chart, evaluating patient and formulating plan 35 min
--- NOTE | 2019-10-19 14:05 | PN ---
Progress Note, Physician History of Present Illness: patient stable needed bipap - Current Medication List Current Medications: Active Medications Acetaminophen (Tylenol -) 650 mg PO Q6H PRN PRN Reason: FEVER Last Admin: 10/07/19 21:49 Dose: 650 mg Albuterol/Ipratropium (Duoneb -) 1 amp NEB Q4H PRN PRN Reason: SHORTNESS OF BREATH Allopurinol (Zyloprim -) 100 mg PO DAILY [facility] Last Admin: 10/19/19 10:42 Dose: 100 mg Amiodarone HCl (Cordarone -) 200 mg PO BID [facility] Last Admin: 10/19/19 10:42 Dose: 200 mg Aspirin (Ecotrin -) 81 mg PO DAILY [facility] Last Admin: 10/19/19 10:46 Dose: 81 mg Atorvastatin Calcium (Lipitor -) 80 mg PO HS [facility] Last Admin: 10/18/19 22:31 Dose: 80 mg Clopidogrel Bisulfate (Plavix -) 75 mg PO DAILY [facility] Last Admin: 10/19/19 10:43 Dose: 75 mg Escitalopram Oxalate (Lexapro -) 10 mg PO DAILY [facility] Last Admin: 10/19/19 10:43 Dose: 10 mg Heparin Sodium (Porcine) (Heparin -) 1,000 unit IVPUSH PRN PRN PRN Reason: Heparin Heparin Sodium (Porcine) (Heparin -) 5,000 unit IVPUSH PRN PRN PRN Reason: Heparin Hydrocortisone Sodium Succinate (Solu-Cortef -) 50 mg IVPB Q8H-IV [facility] Levothyroxine Sodium (Synthroid -) 75 mcg PO DAILY@0700 [facility] Last Admin: 10/19/19 06:00 Dose: 75 mcg Midodrine (Proamatine -) 10 mg PO TID-MID [facility] Last Admin: 10/19/19 13:14 Dose: 10 mg Nitroglycerin (Nitro-Bid 2% Paste -) 0.5 inch TD Q6HPO [facility] Last Admin: 10/19/19 12:14 Dose: 0.5 inch Pantoprazole Sodium (Protonix -) 40 mg PO DAILY [facility] Last Admin: 10/19/19 10:43 Dose: 40 mg Valacyclovir HCl (Valtrex -) 500 mg PO DAILY [facility] Last Admin: 10/19/19 10:51 Dose: 500 mg - Objective Vital Signs: Vital Signs Temperature 98.5 F 10/19/19 06:55 Pulse Rate 74 10/19/19 12:00 Respiratory Rate 18 10/19/19 12:00 Blood Pressure 116/68 10/19/19 12:00 O2 Sat by Pulse Oximetry (%) 95 10/19/19 12:43 Constitutional: Yes: No Distress, Calm Cardiovascular: Yes: S1, S2 Respiratory: Yes: Regular, Poor Air Entry (bases) Gastrointestinal: Yes: Normal Bowel Sounds, Soft Musculoskeletal: Yes: WNL Extremities: Yes: Other Neurological: Yes: Alert, Oriented Psychiatric: Yes: Alert, Oriented Labs: CBC, BMP 10/19/19 05:30 10/19/19 05:30 INR, PTT INR 0.99 (0.83-1.09) 10/07/19 02:55 Assessment/Plan Problem List - Problems (1) Depression Code(s): F32.9 - MAJOR DEPRESSIVE DISORDER, SINGLE EPISODE, UNSPECIFIED (2) ASHD (arteriosclerotic heart disease) Code(s): I25.10 - ATHSCL HEART DISEASE OF [place] CORONARY ARTERY W/O [facility] PCTRS (3) Acute on chronic renal failure Code(s): N17.9 - ACUTE KIDNEY FAILURE, UNSPECIFIED; N18.9 - CHRONIC KIDNEY DISEASE, UNSPECIFIED Qualifiers: Chronic kidney disease stage: stage 2 (mild) (4) Acute on chronic systolic CHF (congestive heart failure) Code(s): I50.23 - ACUTE ON CHRONIC SYSTOLIC (CONGESTIVE) HEART FAILURE (5) Anemia Code(s): D64.9 - ANEMIA, UNSPECIFIED Qualifiers: Chronic kidney disease stage: unspecified stage (6) CAD (coronary artery disease) Code(s): I25.10 - ATHSCL HEART DISEASE OF [place] CORONARY ARTERY W/O [facility] PCTRS Qualifiers: (7) CHF (congestive heart failure) Code(s): I50.9 - HEART FAILURE, UNSPECIFIED Qualifiers: Heart failure type: systolic Heart failure chronicity: unspecified Qualified Code(s): I50.20 - Unspecified systolic (congestive) heart failure (8) Hypothyroidism Code(s): E03.9 - HYPOTHYROIDISM, UNSPECIFIED Qualifiers: Hypothyroidism type: acquired Qualified Code(s): E03.9 - Hypothyroidism, unspecified (9) Multiple myeloma Code(s): C90.00 - MULTIPLE MYELOMA NOT HAVING ACHIEVED REMISSION Qualifiers: Multiple myeloma remission status: not in remission Qualified Code(s): C90.00 - Multiple myeloma not having achieved remission Assessment/Plan UTI Acute on Chronic HF Cardiogenic Shock DEBBIE on CKD Multiple Myeloma Amyloid CAD Anemia Hypothyroidism Asthma Depression -- Pt is alert but weak, afebrile -- s/p course of IV antibiotics, continue monitor -- CXR noted: pleural effusions continue monitor, supportive care cc: 35 min
--- NOTE | 2019-10-19 15:38 | PN ---
Physical Exam: SUBJECTIVE: Patient seen and examined Pt seen at bedside. no acute complaints at thist [place] complained of chest pain over night placed on BIPAP which relived chest pain CXR showed pulmonary congestion. taken of bipap now on nasal cannula. chest pain resolved OBJECTIVE: Vital Signs Period Temp Pulse Resp BP Sys/Moss Pulse Ox Last 24 Hr 97.9 F-98.5 F 74-94 15-30 96-117/58-73 92-100 GENERAL: The patient is awake, alert, and fully oriented, in no acute distress. HEAD: Normal with no signs of trauma. EYES: PERRL, extraocular movements intact, sclera anicteric, conjunctiva clear. No ptosis. ENT: Ears normal, nares patent, oropharynx clear without exudates, moist mucous membranes. NECK: Trachea midline, full range of motion, supple. LUNGS: crackles diffussely bilaterally accessory muscle use. HEART: Regular rate and rhythm, S1, S2 without murmur, rub or gallop. ABDOMEN: Soft, nontender, nondistended, normoactive bowel sounds, no guarding, no rebound, no hepatosplenomegaly, no masses. EXTREMITIES: 2+ pulses, warm, well-perfused, pitting edema NEUROLOGICAL: Cranial nerves II through XII grossly intact. Normal speech, gait not observed. PSYCH: Normal mood, normal affect. SKIN: Warm, dry, normal turgor, no rashes or lesions noted Laboratory Results - last 24 hr 10/18/19 10/18/19 10/19/19 17:50 21:00 05:30 WBC 9.2 RBC 2.64 L Hgb 8.6 L Hct 25.9 L MCV 97.8 H MCH 32.5 MCHC 33.2 RDW 19.2 H Plt Count 126 L MPV 10.3 Absolute Neuts (auto) 8.7 H Neutrophils % 94.5 H Neutrophils % (Manual) 91.0 H Band Neutrophils % 0.0 Lymphocytes % 1.4 L D Lymphocytes % (Manual) 2.0 L D Monocytes % 3.9 Monocytes % (Manual) 7 D Eosinophils % 0.0 Eosinophils % (Manual) 0.0 Basophils % 0.2 Basophils % (Manual) 0.0 Myelocytes % (Man) 0 Promyelocytes % (Man) 0 Blast Cells % (Manual) 0 Nucleated RBC % 1 H Metamyelocytes 0 Hypochromia 1+ Platelet Estimate Decreased Polychromasia 0 Poikilocytosis 1+ Basophilic Stippling 1+ Anisocytosis 3+ Microcytosis 2+ Macrocytosis 1+ Spherocytes 1+ PTT (Actin FS) 54.2 H Sodium Potassium Chloride Carbon Dioxide Anion Gap BUN Creatinine Est GFR (CKD-EPI)AfAm Est GFR (CKD-EPI)NonAf Random Glucose Calcium Phosphorus Magnesium Total Bilirubin AST ALT Alkaline Phosphatase Troponin I 2.16 H* Total Protein Albumin 10/19/19 10/19/19 05:30 05:30 WBC RBC Hgb Hct MCV MCH MCHC RDW Plt Count MPV Absolute Neuts (auto) Neutrophils % Neutrophils % (Manual) Band Neutrophils % Lymphocytes % Lymphocytes % (Manual) Monocytes % Monocytes % (Manual) Eosinophils % Eosinophils % (Manual) Basophils % Basophils % (Manual) Myelocytes % (Man) Promyelocytes % (Man) Blast Cells % (Manual) Nucleated RBC % Metamyelocytes Hypochromia Platelet Estimate Polychromasia Poikilocytosis Basophilic Stippling Anisocytosis Microcytosis Macrocytosis Spherocytes PTT (Actin FS) 57.3 H Sodium 136 Potassium 4.4 Chloride 98 Carbon Dioxide 28 Anion Gap 10 BUN 42.8 H Creatinine 3.2 H Est GFR (CKD-EPI)AfAm 15.64 Est GFR (CKD-EPI)NonAf 13.49 Random Glucose 100 Calcium 8.7 Phosphorus 5.9 H Magnesium 2.1 Total Bilirubin 0.4 AST 25 ALT 54 Alkaline Phosphatase 74 Troponin I 2.19 H* Total Protein 6.4 Albumin 1.8 L Active Medications Generic Name Dose Route Start Last Admin Trade Name Freq PRN Reason Stop Dose Admin Acetaminophen 650 mg 09/20/19 22:25 10/07/19 21:49 Tylenol - PO 650 mg Q6H PRN Administration FEVER Albuterol/Ipratropium 1 amp 10/17/19 15:39 Duoneb - NEB Q4H PRN SHORTNESS OF BREATH Allopurinol 100 mg 10/10/19 13:49 10/19/19 10:42 Zyloprim - PO 100 mg DAILY [facility] Administration Amiodarone HCl 200 mg 10/11/19 12:54 10/19/19 10:42 Cordarone - PO 200 mg BID [facility] Administration Aspirin 81 mg 09/25/19 10:00 10/19/19 10:46 Ecotrin - PO 81 mg DAILY [facility] Administration Atorvastatin Calcium 80 mg 10/14/19 22:00 10/18/19 22:31 Lipitor - PO 80 mg HS [facility] Administration Clopidogrel Bisulfate 75 mg 10/18/19 10:30 10/19/19 10:43 Plavix - PO 75 mg DAILY [facility] Administration Escitalopram Oxalate 10 mg 09/21/19 10:00 10/19/19 10:43 Lexapro - PO 10 mg DAILY [facility] Administration Heparin Sodium (Porcine) 1,000 unit 10/18/19 11:32 Heparin - IVPUSH PRN PRN Heparin Heparin Sodium (Porcine) 5,000 unit 10/18/19 11:32 Heparin - IVPUSH PRN PRN Heparin Hydrocortisone Sodium Succinate 50 mg 10/19/19 18:00 Solu-Cortef - IVPB Q8H-IV [facility] Levothyroxine Sodium 75 mcg 09/21/19 07:00 10/19/19 06:00 Synthroid - PO 75 mcg DAILY@0700 [facility] Administration Midodrine 10 mg 10/06/19 18:00 10/19/19 13:14 Proamatine - PO 10 mg TID-MID [facility] Administration Nitroglycerin 0.5 inch 10/18/19 12:00 10/19/19 12:14 Nitro-Bid 2% Paste - TD 0.5 inch Q6HPO [facility] Administration Pantoprazole Sodium 40 mg 09/21/19 10:00 10/19/19 10:43 Protonix - PO 40 mg DAILY [facility] Administration Valacyclovir HCl 500 mg 09/21/19 10:00 10/19/19 10:51 Valtrex - PO 500 mg DAILY [facility] Administration ASSESA/P NEURO:alert and oriented CV:Acute on Chronic Systolic Heart Failure Cardiogenic Shock CAD Acute NSTEMI Paroxysmal Atrial Fibrillation - conitune ASA and clopidogrel, IV heparin can be stooped monitor Ins and outs electrolytes and daily weight. PULM:Asthma, cardiogenic shock keep O2 sat above 90% currentl on nasal cannula RENAL: received HD. monitor urine ouptut, BUN/Cr and dialy weight. per renal Dr. Hameed, necktie turner access for HD will be required. Lasix for non HD days. FENGI:hyponatremia,monitor electrolytes ENDO: Taper hydrocortisone Heme/Onc: anemia, multiple myeloma -monitor Hgb/Hct ID: antibiotic regimen completed. DVT PPX: LINES/TUBES/DRAINS: Day 6 since central line placement. evaluate with renal if permacath needed for eventual dialyis Visit type - Emergency Visit Emergency Visit: Yes ED Registration Date: 09/20/19 Care time: The patient presented to the Emergency Department on the above date and was hospitalized for further evaluation of their emergent condition. - New Patient This patient is new to me today: No - Critical Care Critical Care patient: No - Discharge Referral Referred to [facility] Med P.C.: No ATTENDING PHYSICIAN STATEMENT I saw and evaluated the patient. I reviewed the resident's note and discussed the case with the resident. I agree with the resident's findings and plan as documented. SUBJECTIVE: OBJECTIVE: ASSESSMENT AND PLAN:
--- NOTE | 2019-10-19 21:28 | PN ---
Progress Note, Physician - Current Medication List Current Medications: Active Medications Acetaminophen (Tylenol -) 650 mg PO Q6H PRN PRN Reason: FEVER Last Admin: 10/07/19 21:49 Dose: 650 mg Albuterol/Ipratropium (Duoneb -) 1 amp NEB Q4H PRN PRN Reason: SHORTNESS OF BREATH Allopurinol (Zyloprim -) 100 mg PO DAILY [facility] Last Admin: 10/19/19 10:42 Dose: 100 mg Amiodarone HCl (Cordarone -) 200 mg PO BID [facility] Last Admin: 10/19/19 10:42 Dose: 200 mg Aspirin (Ecotrin -) 81 mg PO DAILY [facility] Last Admin: 10/19/19 10:46 Dose: 81 mg Atorvastatin Calcium (Lipitor -) 80 mg PO HS [facility] Last Admin: 10/18/19 22:31 Dose: 80 mg Clopidogrel Bisulfate (Plavix -) 75 mg PO DAILY [facility] Last Admin: 10/19/19 10:43 Dose: 75 mg Escitalopram Oxalate (Lexapro -) 10 mg PO DAILY [facility] Last Admin: 10/19/19 10:43 Dose: 10 mg Heparin Sodium (Porcine) (Heparin -) 1,000 unit IVPUSH PRN PRN PRN Reason: Heparin Heparin Sodium (Porcine) (Heparin -) 5,000 unit IVPUSH PRN PRN PRN Reason: Heparin Hydrocortisone Sodium Succinate (Solu-Cortef -) 50 mg IVPB Q8H-IV [facility] Last Admin: 10/19/19 17:22 Dose: 50 mg Levothyroxine Sodium (Synthroid -) 75 mcg PO DAILY@0700 [facility] Last Admin: 10/19/19 06:00 Dose: 75 mcg Midodrine (Proamatine -) 10 mg PO TID-MID [facility] Last Admin: 10/19/19 17:19 Dose: 10 mg Nitroglycerin (Nitro-Bid 2% Paste -) 0.5 inch TD Q6HPO [facility] Last Admin: 10/19/19 17:19 Dose: 0.5 inch Pantoprazole Sodium (Protonix -) 40 mg PO DAILY [facility] Last Admin: 10/19/19 10:43 Dose: 40 mg Silver Sulfadiazine (Silvadene -) 1 applic TP DAILY [facility] Valacyclovir HCl (Valtrex -) 500 mg PO DAILY [facility] Last Admin: 10/19/19 10:51 Dose: 500 mg - Objective Vital Signs: Vital Signs Temperature 97.9 F 10/19/19 14:00 Pulse Rate 85 10/19/19 18:00 Respiratory Rate 22 H 10/19/19 18:00 Blood Pressure 108/68 10/19/19 18:00 O2 Sat by Pulse Oximetry (%) 95 10/19/19 21:10 Labs: CBC, BMP 10/19/19 05:30 10/19/19 05:30 INR, PTT INR 0.99 (0.83-1.09) 10/07/19 02:55 Problem List - Problems (1) Acute on chronic renal failure Code(s): N17.9 - ACUTE KIDNEY FAILURE, UNSPECIFIED; N18.9 - CHRONIC KIDNEY DISEASE, UNSPECIFIED (2) Acute on chronic systolic CHF (congestive heart failure) Code(s): I50.23 - ACUTE ON CHRONIC SYSTOLIC (CONGESTIVE) HEART FAILURE (3) Multiple myeloma Code(s): C90.00 - MULTIPLE MYELOMA NOT HAVING ACHIEVED REMISSION Qualifiers: Multiple myeloma remission status: not in remission Qualified Code(s): C90.00 - Multiple myeloma not having achieved remission (4) HLD (hyperlipidemia) Code(s): E78.5 - HYPERLIPIDEMIA, UNSPECIFIED Qualifiers: Hyperlipidemia type: unspecified Qualified Code(s): E78.5 - Hyperlipidemia , unspecified (5) Hypothyroidism Code(s): E03.9 - HYPOTHYROIDISM, UNSPECIFIED Qualifiers: Hypothyroidism type: acquired Qualified Code(s): E03.9 - Hypothyroidism, unspecified (6) CAD (coronary artery disease) Code(s): I25.10 - ATHSCL HEART DISEASE OF [place] CORONARY ARTERY W/O ANG PCTRS Qualifiers: (7) Depression Code(s): F32.9 - MAJOR DEPRESSIVE DISORDER, SINGLE EPISODE, UNSPECIFIED (8) History of heart artery stent Code(s): Z95.5 - PRESENCE OF CORONARY ANGIOPLASTY IMPLANT AND GRAFT (9) Diarrhea Code(s): R19.7 - DIARRHEA, UNSPECIFIED Qualifiers: Diarrhea type: unspecified type Qualified Code(s): R19.7 - Diarrhea, unspecified (10) UTI (urinary tract infection) Code(s): N39.0 - URINARY TRACT INFECTION, SITE NOT SPECIFIED (11) Elevated troponin Code(s): R74.8 - ABNORMAL LEVELS OF OTHER SERUM ENZYMES
[2019-10-19] MEDS: SILVER SULFADIAZINE 1% TOP CREAM 50 GM JAR TP SCH (21:40)
[2019-10-19] MEDS: ATORVASTATIN CA 80 MG TABLET (FP) PO SCH (21:41)
[2019-10-20] MEDS: HYDROCORTISONE SOD SUCCINATE 100 MG/2 ML VIAL IVPB SCH ×3 (03:01→17:31)
[2019-10-20] MEDS: NITROGLYCERIN 2% OINTMENT - 1GM PACKET TD SCH (06:02)
[2019-10-20] MEDS: LEVOTHYROXINE NA 75 MCG TABLET (FP) PO SCH (06:06)
[2019-10-20 06:54] LABS: HEMATOCRIT 26.3 % (32.4-45.2); HEMOGLOBIN 8.8 GM/dL (10.7-15.3); MCH 32.6 pg (25.7-33.7); MCHC 33.4 g/dl (32.0-36.0); MEAN CELL VOLUME 97.6 fl (80-96); MEAN PLT VOLUME 9.8 fl (7.5-11.1); PLATELET COUNT 118 K/MM3 (134-434); RBC 2.69 M/mm3 (3.60-5.2); RDW 19.2 % (11.6-15.6); WHITE BLOOD COUNT 9.6 K/mm3 (4.0-10.0)
[2019-10-20 07:24] LABS: ALBUMIN 1.7 g/dl (3.4-5.0); BILIRUBIN,TOTAL 0.4 mg/dL (0.2-1); BLOOD UREA NITROGEN 31.3 mg/dL (7-18); CALCIUM 8.2 mg/dL (8.5-10.1); CREATININE 2.4 mg/dL (0.55-1.3); MAGNESIUM 2.1 mg/dL (1.8-2.4); PHOSPHOROUS 4.3 mg/dL (2.5-4.9); POTASSIUM 3.8 mmol/L (3.5-5.1); TOT PROT 6.4 g/dl (6.4-8.2)
[2019-10-20] MEDS: AMIODARONE HCL 200 MG TABLET (FP) PO SCH ×2 (09:47→22:04)
[2019-10-20] MEDS: ESCITALOPRAM OXALATE 10 MG TABLET (FP) PO SCH (09:48)
[2019-10-20] MEDS: ASPIRIN COATED 81 MG TABLET.EC PO SCH (09:48)
[2019-10-20] MEDS: CLOPIDOGREL BISULFATE 75 MG TABLET (FP) PO SCH (09:49)
[2019-10-20] MEDS: MIDODRINE HCL 5 MG TABLET PO SCH ×3 (09:49→17:31)
[2019-10-20] MEDS: PANTOPRAZOLE 40 MG TABLET (FP) PO SCH (09:50)
[2019-10-20] MEDS: ALLOPURINOL 100 MG TABLET (FP) PO SCH (09:50)
[2019-10-20] MEDS: SILVER SULFADIAZINE 1% TOP CREAM 50 GM JAR TP SCH (09:50)
--- NOTE | 2019-10-20 11:51 | PN ---
Teaching Attending Note Name of Resident: Brit Chavez ATTENDING PHYSICIAN STATEMENT I saw and evaluated the patient. I reviewed the resident's note and discussed the case with the resident. I agree with the resident's findings and plan as documented. SUBJECTIVE: Patient seen and examined in the ICU. Awake and alert. Reports feeling better. Intake & Output 10/17/19 10/18/19 10/19/19 10/20/19 23:59 23:59 23:59 23:59 Intake Total 750 366 964 50 Output Total 2540 50 3070 0 Balance -1790 316 -2106 50 Weight 166 lb 9.6 oz 160 lb 9 oz 159 lb 6 oz 159 lb 5 oz Last Vital Signs Temp Pulse Resp BP Pulse Ox 98.5 F 70 16 95/58 L 100 10/20/19 10:00 10/20/19 10:00 10/20/19 10:00 10/20/19 10:00 10/20/19 08:00 Active Medications Acetaminophen (Tylenol -) 650 mg PO Q6H PRN PRN Reason: FEVER Last Admin: 10/07/19 21:49 Dose: 650 mg Albuterol/Ipratropium (Duoneb -) 1 amp NEB Q4H PRN PRN Reason: SHORTNESS OF BREATH Allopurinol (Zyloprim -) 100 mg PO DAILY [facility] Last Admin: 10/20/19 09:50 Dose: 100 mg Amiodarone HCl (Cordarone -) 200 mg PO BID [facility] Last Admin: 10/20/19 09:47 Dose: 200 mg Aspirin (Ecotrin -) 81 mg PO DAILY [facility] Last Admin: 10/20/19 09:48 Dose: 81 mg Atorvastatin Calcium (Lipitor -) 80 mg PO HS [facility] Last Admin: 10/19/19 21:41 Dose: 80 mg Clopidogrel Bisulfate (Plavix -) 75 mg PO DAILY [facility] Last Admin: 10/20/19 09:49 Dose: 75 mg Escitalopram Oxalate (Lexapro -) 10 mg PO DAILY [facility] Last Admin: 10/20/19 09:48 Dose: 10 mg Hydrocortisone Sodium Succinate (Solu-Cortef -) 50 mg IVPB Q8H-IV [facility] Last Admin: 10/20/19 09:51 Dose: 50 mg Levothyroxine Sodium (Synthroid -) 75 mcg PO DAILY@0700 [facility] Last Admin: 10/20/19 06:06 Dose: 75 mcg Midodrine (Proamatine -) 10 mg PO TID-MID [facility] Last Admin: 10/20/19 09:49 Dose: 10 mg Pantoprazole Sodium (Protonix -) 40 mg PO DAILY [facility] Last Admin: 10/20/19 09:50 Dose: 40 mg Silver Sulfadiazine (Silvadene -) 1 applic TP DAILY [facility] Last Admin: 10/20/19 09:50 Dose: 1 applic Valacyclovir HCl (Valtrex -) 500 mg PO DAILY [facility] Last Admin: 10/19/19 10:51 Dose: 500 mg OBJECTIVE: Gen: Awake and alert, NAD Heart: RRR Lung: scattered rhonchi Abd: soft, nontender Ext: + edema Laboratory Results - last 24 hr 10/20/19 10/20/19 10/20/19 06:00 06:00 06:00 WBC 9.6 RBC 2.69 L Hgb 8.8 L Hct 26.3 L MCV 97.6 H MCH 32.6 MCHC 33.4 RDW 19.2 H Plt Count 118 L MPV 9.8 PTT (Actin FS) 29.1 Sodium 140 Potassium 3.8 Chloride 101 Carbon Dioxide 30 Anion Gap 10 BUN 31.3 H Creatinine 2.4 H Est GFR (CKD-EPI)AfAm 22.15 Est GFR (CKD-EPI)NonAf 19.11 Random Glucose 99 Calcium 8.2 L Phosphorus 4.3 Magnesium 2.1 Total Bilirubin 0.4 AST 20 ALT 48 Alkaline Phosphatase 72 Total Protein 6.4 Albumin 1.7 L ASSESSMENT AND PLAN: Acute on Chronic Systolic Heart Failure Cardiogenic Shock Acute on Chronic Renal Failure CAD Acute NSTEMI Paroxysmal Atrial Fibrillation Pneumonia Asthma Multiple Myeloma HTN Hyperlipidemia Hypothyroidism Anemia Hyponatremia - HD per renal with ultrafiltration - monitor urine output, creatinine - daily weights - amiodarone - monitor H/H - completed antibiotics - O2 to keep SpO2 >90% - inhaled bronchodilators as needed - BiPAP to assist in work of breathing - taper hydrocortisone - DVT prophylaxis - continue ICU monitoring - poor overall prognosis, continue discussions regarding goals of care Dr Bacon
--- NOTE | 2019-10-20 13:06 | PN ---
Physical Exam: SUBJECTIVE: Patient seen and examined OBJECTIVE: Vital Signs Period Temp Pulse Resp BP Sys/Moss Pulse Ox Last 24 Hr 97.5 F-98.5 F 64-85 13-23 89-121/50-68 94-100 GGEN: NAD, comfortable. AOx3 HEENT: NC/AT, EOMI, PERRLA. No facial asymmetry. Moist mucous membranes. CV: S1/S2, RRR, no m/r/g LUNG: rhonchi and crackles on lung exam GI: distended abdomen. firm on palpation. , +BS, no guarding, no rebound. EXTREMITIES: 1+ distal pulses. pitting pedal edema. SKIN: warm, dry, normal turgor PSYCH: normal mood and affect NEURO: Moving all extremities well. Laboratory Results - last 24 hr 10/20/19 10/20/19 10/20/19 06:00 06:00 06:00 WBC 9.6 RBC 2.69 L Hgb 8.8 L Hct 26.3 L MCV 97.6 H MCH 32.6 MCHC 33.4 RDW 19.2 H Plt Count 118 L MPV 9.8 PTT (Actin FS) 29.1 Sodium 140 Potassium 3.8 Chloride 101 Carbon Dioxide 30 Anion Gap 10 BUN 31.3 H Creatinine 2.4 H Est GFR (CKD-EPI)AfAm 22.15 Est GFR (CKD-EPI)NonAf 19.11 Random Glucose 99 Calcium 8.2 L Phosphorus 4.3 Magnesium 2.1 Total Bilirubin 0.4 AST 20 ALT 48 Alkaline Phosphatase 72 Total Protein 6.4 Albumin 1.7 L Active Medications Generic Name Dose Route Start Last Admin Trade Name Freq PRN Reason Stop Dose Admin Acetaminophen 650 mg 09/20/19 22:25 10/07/19 21:49 Tylenol - PO 650 mg Q6H PRN Administration FEVER Albuterol/Ipratropium 1 amp 10/17/19 15:39 Duoneb - NEB Q4H PRN SHORTNESS OF BREATH Allopurinol 100 mg 10/10/19 13:49 10/20/19 09:50 Zyloprim - PO 100 mg DAILY [facility] Administration Amiodarone HCl 200 mg 10/11/19 12:54 10/20/19 09:47 Cordarone - PO 200 mg BID [facility] Administration Aspirin 81 mg 09/25/19 10:00 10/20/19 09:48 Ecotrin - PO 81 mg DAILY [facility] Administration Atorvastatin Calcium 80 mg 10/14/19 22:00 10/19/19 21:41 Lipitor - PO 80 mg HS [facility] Administration Clopidogrel Bisulfate 75 mg 10/18/19 10:30 10/20/19 09:49 Plavix - PO 75 mg DAILY [facility] Administration Escitalopram Oxalate 10 mg 09/21/19 10:00 10/20/19 09:48 Lexapro - PO 10 mg DAILY [facility] Administration Hydrocortisone Sodium Succinate 50 mg 10/19/19 18:00 10/20/19 09:51 Solu-Cortef - IVPB 50 mg Q8H-IV [facility] Administration Levothyroxine Sodium 75 mcg 09/21/19 07:00 10/20/19 06:06 Synthroid - PO 75 mcg DAILY@0700 [facility] Administration Midodrine 10 mg 10/06/19 18:00 10/20/19 09:49 Proamatine - PO 10 mg TID-MID [facility] Administration Pantoprazole Sodium 40 mg 09/21/19 10:00 10/20/19 09:50 Protonix - PO 40 mg DAILY [facility] Administration Silver Sulfadiazine 1 applic 10/19/19 20:00 10/20/19 09:50 Silvadene - TP 1 applic DAILY [facility] Administration Valacyclovir HCl 500 mg 09/21/19 10:00 10/19/19 10:51 Valtrex - PO 500 mg DAILY [facility] Administration ASSESSMENT/PLAN: NEURO:alert and oriented CV:Acute on Chronic Systolic Heart Failure Cardiogenic Shock CAD Acute NSTEMI Paroxysmal Atrial Fibrillation - conitune ASA and clopidogrel, IV heparin can be stooped monitor Ins and outs electrolytes and daily weight. PULM:Asthma, cardiogenic shock keep O2 sat above 90% currentl on nasal cannula RENAL: received HD. monitor urine ouptut, BUN/Cr and dialy weight. per renal Dr. Hameed, alf access for HD will be required. Lasix for non HD days. -pt will require placement fo permacath for alf hemodialysis -consult put in to Dr. Ruperto Marquez for permacath placement -Pt family agrees with this plan FENGI:hyponatremia,monitor electrolytes -Pt had some difficulty swallowing food. -evaluated by Alycia Burris, diet switched to dysphagia puree on thin liquids ENDO: Taper hydrocortisone Heme/Onc: anemia, multiple myeloma -monitor Hgb/Hct ID: antibiotic regimen completed. DVT PPX: LINES/TUBES/DRAINS: Day 7 since central line placement. HD to be done tomorrow using this line then it can be taken out. ATTENDING PHYSICIAN STATEMENT I saw and evaluated the patient. I reviewed the resident's note and discussed the case with the resident. I agree with the resident's findings and plan as documented. SUBJECTIVE: OBJECTIVE: ASSESSMENT AND PLAN:
--- NOTE | 2019-10-20 13:17 | CONSULT ---
Admitting History and Physical - Primary Care Physician PCP: Paulette Puckett - Admission History of Present Illness: Selected Entries 10/19/19 10/19/19 10/19/19 02:00 06:00 06:55 Lunch Supper Temperature 98.2 F 98.2 F 98.5 F Blood Pressure 10/19/19 10/19/19 10/19/19 10:00 14:00 14:30 Lunch 50% Supper 50% Temperature 97.9 F Blood Pressure 10/19/19 10/20/19 10/20/19 22:00 00:00 02:00 Lunch Supper Temperature 97.5 F L 97.6 F Blood Pressure 98/59 L 95/60 10/20/19 10/20/19 10/20/19 04:00 06:00 08:00 Lunch Supper Temperature 97.8 F Blood Pressure 121/60 101/58 L 102/54 L 10/20/19 10/20/19 10:00 12:00 Lunch Supper Temperature 98.5 F Blood Pressure 95/58 L 89/50 L Laboratory Tests 10/19/19 10/20/19 05:30 06:00 WBC 9.2 9.6 History Source: Patient, Medical Record Limitations to Obtaining History: Clinical Condition - Past Medical History Cardiovascular: Yes: CAD (s/p HOLLY D1 this month after NSTEMI), CHF (Chronic systolic CHF, mildly reduced LV function with EF 45%), HTN, Hyperlipdemia Pulmonary: Yes: Asthma Gastrointestinal: Yes: Other (hiatal hernia; rectal polyp) Renal/: Yes: Renal Inusuff, Other (proteinuria) ...: No Heme/Onc: Yes: Anemia Psych: Yes: Depression Endocrine: Yes: Hypothyroidism - Past Surgical History Past Surgical History: Yes: Breast Biopsy (right for cysts), Hernia Repair ( laparoscopic hiatal), Hysterectomy, Tubal Ligation - Smoking History Smoking history: Former smoker Have you smoked in the past 12 months: No Aproximately how many cigarettes per day: 5 If you are a former smoker, when did you quit?: 1969 - Alcohol/Substance Use Hx Alcohol Use: No History of Substance Use: reports: None - Social History ADL: Independent History of Recent Travel: No History - Admission Reason For Visit: ELEVATED TROPONIN I LEVEL, ACUTE ON CHRONIC SYSTOL - Diagnostics X-ray: Report Reviewed - General Mental Status: Alert and Oriented (errors in orientation, accurate with cues), Awake and Alert, Able to Follow Commands, Forgetful (suspected.) Attention: Intact Ability to Follow Directions: Good Head/Neck Control: WFL - Hearing Hearing: Normal Hearing Aide: No Speech Evaluation - Communication Primary Language: [id number] Communication: Yes: Simple Responses Oral Expression Ability: Yes: No Impairment - Speech Production Able to Make Needs Known: Yes: WNL Intelligibility: Yes: WNL - Speech Characteristics Voice Loudness: Normal Voice Pitch: Yes: Normal Voice Phonatory-based Quality: Yes: Normal Speech Pattern: Normal Speech Clarity: < 100% Nasal Resonance: Normal Articulation: Yes: Precise Rate of Speech: Intact - Language/Auditory Comprehension Follows: Yes: 1 Stage Simple Commands - Language/Verbal Expression Aphasia: Yes: Anomia (mild) Able to Respond to Simple Queries: Yes: WNL Able to Communicate Wants and Needs: Yes: WNL Functional Communication Status: Yes: WNL - Swallow Evaluation/Bedside Assessment Current Nutritional Intake: Soft, Thin Liquids Oral Secretions: Yes: WFL Dentition: Yes: Adequate Facial Symmetry at Rest: Symmetrical Facial Symmetry on Retraction: Symmetrical Facial Movement: Controlled Sensation: Normal Against Resistance Opening: Normal Against Resistance Closing: Normal Pucker Lips: Normal Smile: Normal Lingual Movement: Symmetric Lingual Speed of Movement: Normal Lingual Movement Strgth Against Opposition: Normal Lingual Movement Characteristics: Normal Laryngeal Elevation: WFL Laryngeal Movement: Able to Palpate Rate of Intake: WFL Bolus Size: WFL Labial Seal: WFL Chewing: Impaired (indefinitely on puree) Oral Prep Time: Increased A-P Transit: Impaired Timing of Swallow: Delayed Coughing/Throat Clear: No Change in Voice: No Recommendations - Speech Evaluation, Impression/Plan Impression: Staff noticed pt chewing puree indefinitely. Upon assessment, pt is verbal and oriented grossly, with difficulty forming and propelling the bolus with both applesauce and cookie. Pt reports it is difficult for her to chew, although observed mastication seemed fairly efficient. Bolus formation/ propulsion difficulty generally related to impaired cognition (acute/chronic), unclear why this is occuring with Vessie. She is aware of it. Aspiration not suspected. She drinks fluently with good cooerdination. - Disposition Discharge to: To be Determined (LTACH/NH?) - Dysphagia Impressions/Plan Swallowing Skills: Impaired Dysphagia Impressions: Mild Impairment, Moderate Impairment, Ongoing Evaluation *Silent aspiration: cannot be R/O at bedside Dysphagia Treatment Plan: Small Bites, Clear Pocket Food, Trial Feedings, Safe Rate, 1/2 tsp. at a time, Elevate HOB during feed - Recommendations Diet Consistency: Dysphagia Pureed (trial), Other (If oral holding, mix puree in liquid to drink- eg puree in soup, hot cereal in milk to drink, until pt improves.) Medication Administration: Crushed with applesauce Liquids: Thin Liquids Supplement: Ensure (Ensure clear)
[2019-10-20] MEDS: valACYclovir HCL 500 MG TABLET (FP) PO SCH (14:43)
[2019-10-20] MEDS ORDERED: FUROSEMIDE 40 MG/4 ML INJECTABLE VIAL IVPUSH ONE (15:10)
--- NOTE | 2019-10-20 16:16 | PN ---
Progress Note, Physician History of Present Illness: Pt seen and examined at bedside. She is awake and says that her breathing feels better after HD. - Current Medication List Current Medications: Active Medications Acetaminophen (Tylenol -) 650 mg PO Q6H PRN PRN Reason: FEVER Last Admin: 10/07/19 21:49 Dose: 650 mg Albuterol/Ipratropium (Duoneb -) 1 amp NEB Q4H PRN PRN Reason: SHORTNESS OF BREATH Allopurinol (Zyloprim -) 100 mg PO DAILY [facility] Last Admin: 10/20/19 09:50 Dose: 100 mg Amiodarone HCl (Cordarone -) 200 mg PO BID [facility] Last Admin: 10/20/19 09:47 Dose: 200 mg Aspirin (Ecotrin -) 81 mg PO DAILY [facility] Last Admin: 10/20/19 09:48 Dose: 81 mg Atorvastatin Calcium (Lipitor -) 80 mg PO HS [facility] Last Admin: 10/19/19 21:41 Dose: 80 mg Clopidogrel Bisulfate (Plavix -) 75 mg PO DAILY [facility] Last Admin: 10/20/19 09:49 Dose: 75 mg Escitalopram Oxalate (Lexapro -) 10 mg PO DAILY [facility] Last Admin: 10/20/19 09:48 Dose: 10 mg Hydrocortisone Sodium Succinate (Solu-Cortef -) 50 mg IVPB Q8H-IV [facility] Last Admin: 10/20/19 09:51 Dose: 50 mg Levothyroxine Sodium (Synthroid -) 75 mcg PO DAILY@0700 [facility] Last Admin: 10/20/19 06:06 Dose: 75 mcg Midodrine (Proamatine -) 10 mg PO TID-MID [facility] Last Admin: 10/20/19 14:43 Dose: 10 mg Pantoprazole Sodium (Protonix -) 40 mg PO DAILY [facility] Last Admin: 10/20/19 09:50 Dose: 40 mg Silver Sulfadiazine (Silvadene -) 1 applic TP DAILY [facility] Last Admin: 10/20/19 09:50 Dose: 1 applic Valacyclovir HCl (Valtrex -) 500 mg PO DAILY [facility] Last Admin: 10/20/19 14:43 Dose: 500 mg - Objective Vital Signs: Vital Signs Temperature 98 F 10/20/19 14:00 Pulse Rate 72 10/20/19 16:00 Respiratory Rate 18 10/20/19 16:00 Blood Pressure 98/70 10/20/19 16:00 O2 Sat by Pulse Oximetry (%) 99 10/20/19 14:17 Constitutional: Yes: Calm Eyes: Yes: Conjunctiva Clear Cardiovascular: Yes: S1, S2 Respiratory: Yes: On Nasal O2 Gastrointestinal: Yes: Soft Genitourinary: Yes: Oliguria Musculoskeletal: Yes: Muscle Weakness Edema: Yes Edema: LLE: 1+, RLE: 1+ Neurological: Yes: Oriented Psychiatric: Yes: Oriented Labs: CBC, BMP 10/20/19 06:00 10/20/19 06:00 INR, PTT INR 0.99 (0.83-1.09) 10/07/19 02:55 Problem List - Problems (1) Fluid overload Code(s): E87.70 - FLUID OVERLOAD, UNSPECIFIED (2) CKD (chronic kidney disease) Code(s): N18.9 - CHRONIC KIDNEY DISEASE, UNSPECIFIED Assessment/Plan Current Medications Generic Name Dose Route Start Last Admin Trade Name Freq PRN Reason Stop Dose Admin Acetaminophen 650 mg 09/20/19 22:25 10/07/19 21:49 Tylenol - PO 650 mg Q6H PRN Administration FEVER Albuterol/Ipratropium 1 amp 10/17/19 15:39 Duoneb - NEB Q4H PRN SHORTNESS OF BREATH Allopurinol 100 mg 10/10/19 13:49 10/20/19 09:50 Zyloprim - PO 100 mg DAILY [facility] Administration Amiodarone HCl 200 mg 10/11/19 12:54 10/20/19 09:47 Cordarone - PO 200 mg BID [facility] Administration Aspirin 81 mg 09/25/19 10:00 10/20/19 09:48 Ecotrin - PO 81 mg DAILY [facility] Administration Atorvastatin Calcium 80 mg 10/14/19 22:00 10/19/19 21:41 Lipitor - PO 80 mg HS [facility] Administration Clopidogrel Bisulfate 75 mg 10/18/19 10:30 10/20/19 09:49 Plavix - PO 75 mg DAILY [facility] Administration Escitalopram Oxalate 10 mg 09/21/19 10:00 10/20/19 09:48 Lexapro - PO 10 mg DAILY [facility] Administration Hydrocortisone Sodium Succinate 50 mg 10/19/19 18:00 10/20/19 09:51 Solu-Cortef - IVPB 50 mg Q8H-IV [facility] Administration Levothyroxine Sodium 75 mcg 09/21/19 07:00 10/20/19 06:06 Synthroid - PO 75 mcg DAILY@0700 [facility] Administration Midodrine 10 mg 10/06/19 18:00 10/20/19 14:43 Proamatine - PO 10 mg TID-MID [facility] Administration Pantoprazole Sodium 40 mg 09/21/19 10:00 10/20/19 09:50 Protonix - PO 40 mg DAILY [facility] Administration Silver Sulfadiazine 1 applic 10/19/19 20:00 10/20/19 09:50 Silvadene - TP 1 applic DAILY [facility] Administration Valacyclovir HCl 500 mg 09/21/19 10:00 10/20/19 14:43 Valtrex - PO 500 mg DAILY [facility] Administration Impression 1. proteinuria 2. multiple myeloma 3. amyloid 4. dizziness 5. hypotension 6. HLD 7. hypothyroidism 8. anemia 9. CKD 10. fluid overload 11. hypotension 12. hyperkalemia 13. nstemi 14. DEBBIE Plan - HD tomorrow - monitor uriner output - js lema after hd tomorrow - will need more oysterman access - lasix on non HD days - pt remains oliguric - prognosis is poor
--- NOTE | 2019-10-20 16:51 | PN ---
Progress Note, Physician History of Present Illness: weak tired - Current Medication List Current Medications: Active Medications Acetaminophen (Tylenol -) 650 mg PO Q6H PRN PRN Reason: FEVER Last Admin: 10/07/19 21:49 Dose: 650 mg Albumin Human (Albumin Human 25%) 12.5 gm IVPB Q30M [facility] Albuterol/Ipratropium (Duoneb -) 1 amp NEB Q4H PRN PRN Reason: SHORTNESS OF BREATH Allopurinol (Zyloprim -) 100 mg PO DAILY [facility] Last Admin: 10/20/19 09:50 Dose: 100 mg Amiodarone HCl (Cordarone -) 200 mg PO BID [facility] Last Admin: 10/20/19 09:47 Dose: 200 mg Aspirin (Ecotrin -) 81 mg PO DAILY [facility] Last Admin: 10/20/19 09:48 Dose: 81 mg Atorvastatin Calcium (Lipitor -) 80 mg PO HS [facility] Last Admin: 10/19/19 21:41 Dose: 80 mg Clopidogrel Bisulfate (Plavix -) 75 mg PO DAILY [facility] Last Admin: 10/20/19 09:49 Dose: 75 mg Escitalopram Oxalate (Lexapro -) 10 mg PO DAILY [facility] Last Admin: 10/20/19 09:48 Dose: 10 mg Hydrocortisone Sodium Succinate (Solu-Cortef -) 50 mg IVPB Q8H-IV [facility] Last Admin: 10/20/19 09:51 Dose: 50 mg Sodium Chloride (Normal Saline -) 250 mls @ 3,000 mls/hr IV PRN PRN PRN Reason: Hypotension during Dialysis Stop: 10/21/19 16:16 Levothyroxine Sodium (Synthroid -) 75 mcg PO DAILY@0700 [facility] Last Admin: 10/20/19 06:06 Dose: 75 mcg Midodrine (Proamatine -) 10 mg PO TID-MID [facility] Last Admin: 10/20/19 14:43 Dose: 10 mg Pantoprazole Sodium (Protonix -) 40 mg PO DAILY [facility] Last Admin: 10/20/19 09:50 Dose: 40 mg Silver Sulfadiazine (Silvadene -) 1 applic TP DAILY [facility] Last Admin: 10/20/19 09:50 Dose: 1 applic Valacyclovir HCl (Valtrex -) 500 mg PO DAILY [facility] Last Admin: 10/20/19 14:43 Dose: 500 mg - Objective Vital Signs: Vital Signs Temperature 98 F 10/20/19 14:00 Pulse Rate 72 10/20/19 16:00 Respiratory Rate 18 10/20/19 16:00 Blood Pressure 98/70 10/20/19 16:00 O2 Sat by Pulse Oximetry (%) 100 10/20/19 16:13 Constitutional: Yes: Calm, Mild Distress Cardiovascular: Yes: S1, S2 Respiratory: Yes: Regular, CTA Bilaterally Gastrointestinal: Yes: Normal Bowel Sounds, Soft Musculoskeletal: Yes: WNL Extremities: Yes: WNL Neurological: Yes: Alert, Oriented Psychiatric: Yes: Alert, Oriented Labs: CBC, BMP 10/20/19 06:00 10/20/19 06:00 INR, PTT INR 0.99 (0.83-1.09) 10/07/19 02:55 Assessment/Plan Problem List - Problems (1) Anasarca Code(s): R60.1 - GENERALIZED EDEMA (2) Fluid overload Code(s): E87.70 - FLUID OVERLOAD, UNSPECIFIED (3) Hypoxia Code(s): R09.02 - HYPOXEMIA (4) Weakness Code(s): R53.1 - WEAKNESS (5) ASHD (arteriosclerotic heart disease) Code(s): I25.10 - ATHSCL HEART DISEASE OF [place] CORONARY ARTERY W/O ANG PCTRS (6) Acute exacerbation of CHF (congestive heart failure) Code(s): I50.9 - HEART FAILURE, UNSPECIFIED (7) Acute on chronic systolic CHF (congestive heart failure) Code(s): I50.23 - ACUTE ON CHRONIC SYSTOLIC (CONGESTIVE) HEART FAILURE (8) Adult onset hypothyroidism Code(s): E03.8 - OTHER SPECIFIED HYPOTHYROIDISM (9) Anemia Code(s): D64.9 - ANEMIA, UNSPECIFIED (10) CKD (chronic kidney disease) Code(s): N18.9 - CHRONIC KIDNEY DISEASE, UNSPECIFIED (11) Elevated troponin Code(s): R74.8 - ABNORMAL LEVELS OF OTHER SERUM ENZYMES (12) HLD (hyperlipidemia) Code(s): E78.5 - HYPERLIPIDEMIA, UNSPECIFIED Qualifiers: Hyperlipidemia type: unspecified Qualified Code(s): E78.5 - Hyperlipidemia , unspecified (13) HTN (hypertension) Code(s): I10 - ESSENTIAL (PRIMARY) HYPERTENSION Qualifiers: Hypertension type: unspecified Qualified Code(s): I10 - Essential (primary ) hypertension (14) History of heart artery stent Code(s): Z95.5 - PRESENCE OF CORONARY ANGIOPLASTY IMPLANT AND GRAFT (15) Multiple myeloma Code(s): C90.00 - MULTIPLE MYELOMA NOT HAVING ACHIEVED REMISSION Qualifiers: Multiple myeloma remission status: not in remission Qualified Code(s): C90.00 - Multiple myeloma not having achieved remission uti hypotension Assessment/Plan completed abx resp support dialysis rest as per the team
--- NOTE | 2019-10-20 20:56 | PN ---
Progress Note, Physician - Current Medication List Current Medications: Active Medications Acetaminophen (Tylenol -) 650 mg PO Q6H PRN PRN Reason: FEVER Last Admin: 10/07/19 21:49 Dose: 650 mg Albumin Human (Albumin Human 25%) 12.5 gm IVPB Q30M [facility] Stop: 10/21/19 18:01 Albuterol/Ipratropium (Duoneb -) 1 amp NEB Q4H PRN PRN Reason: SHORTNESS OF BREATH Allopurinol (Zyloprim -) 100 mg PO DAILY [facility] Last Admin: 10/20/19 09:50 Dose: 100 mg Amiodarone HCl (Cordarone -) 200 mg PO BID [facility] Last Admin: 10/20/19 09:47 Dose: 200 mg Aspirin (Ecotrin -) 81 mg PO DAILY [facility] Last Admin: 10/20/19 09:48 Dose: 81 mg Atorvastatin Calcium (Lipitor -) 80 mg PO HS [facility] Last Admin: 10/19/19 21:41 Dose: 80 mg Clopidogrel Bisulfate (Plavix -) 75 mg PO DAILY [facility] Last Admin: 10/20/19 09:49 Dose: 75 mg Escitalopram Oxalate (Lexapro -) 10 mg PO DAILY [facility] Last Admin: 10/20/19 09:48 Dose: 10 mg Hydrocortisone Sodium Succinate (Solu-Cortef -) 50 mg IVPB Q8H-IV [facility] Last Admin: 10/20/19 17:31 Dose: 50 mg Sodium Chloride (Normal Saline -) 250 mls @ 3,000 mls/hr IV PRN PRN PRN Reason: Hypotension during Dialysis Stop: 10/21/19 16:16 Levothyroxine Sodium (Synthroid -) 75 mcg PO DAILY@0700 [facility] Last Admin: 10/20/19 06:06 Dose: 75 mcg Midodrine (Proamatine -) 10 mg PO TID-MID [facility] Last Admin: 10/20/19 17:31 Dose: 10 mg Pantoprazole Sodium (Protonix -) 40 mg PO DAILY [facility] Last Admin: 10/20/19 09:50 Dose: 40 mg Silver Sulfadiazine (Silvadene -) 1 applic TP DAILY [facility] Last Admin: 10/20/19 09:50 Dose: 1 applic Valacyclovir HCl (Valtrex -) 500 mg PO DAILY [facility] Last Admin: 10/20/19 14:43 Dose: 500 mg - Objective Vital Signs: Vital Signs Temperature 98 F 10/20/19 14:00 Pulse Rate 75 10/20/19 20:00 Respiratory Rate 27 H 10/20/19 20:00 Blood Pressure 94/55 L 10/20/19 20:00 O2 Sat by Pulse Oximetry (%) 97 10/20/19 20:09 Labs: CBC, BMP 10/20/19 06:00 10/20/19 06:00 INR, PTT INR 0.99 (0.83-1.09) 10/07/19 02:55 Problem List - Problems (1) Acute on chronic renal failure Code(s): N17.9 - ACUTE KIDNEY FAILURE, UNSPECIFIED; N18.9 - CHRONIC KIDNEY DISEASE, UNSPECIFIED (2) Acute on chronic systolic CHF (congestive heart failure) Code(s): I50.23 - ACUTE ON CHRONIC SYSTOLIC (CONGESTIVE) HEART FAILURE (3) Multiple myeloma Code(s): C90.00 - MULTIPLE MYELOMA NOT HAVING ACHIEVED REMISSION Qualifiers: Multiple myeloma remission status: not in remission Qualified Code(s): C90.00 - Multiple myeloma not having achieved remission (4) HLD (hyperlipidemia) Code(s): E78.5 - HYPERLIPIDEMIA, UNSPECIFIED Qualifiers: Hyperlipidemia type: unspecified Qualified Code(s): E78.5 - Hyperlipidemia , unspecified (5) Hypothyroidism Code(s): E03.9 - HYPOTHYROIDISM, UNSPECIFIED Qualifiers: Hypothyroidism type: acquired Qualified Code(s): E03.9 - Hypothyroidism, unspecified (6) CAD (coronary artery disease) Code(s): I25.10 - ATHSCL HEART DISEASE OF [place] CORONARY ARTERY W/O ANG PCTRS Qualifiers: (7) Depression Code(s): F32.9 - MAJOR DEPRESSIVE DISORDER, SINGLE EPISODE, UNSPECIFIED (8) History of heart artery stent Code(s): Z95.5 - PRESENCE OF CORONARY ANGIOPLASTY IMPLANT AND GRAFT (9) Diarrhea Code(s): R19.7 - [place], UNSPECIFIED Qualifiers: Diarrhea type: unspecified type Qualified Code(s): R19.7 - Diarrhea, unspecified (10) UTI (urinary tract infection) Code(s): N39.0 - URINARY TRACT INFECTION, SITE NOT SPECIFIED (11) Elevated troponin Code(s): R74.8 - ABNORMAL LEVELS OF OTHER SERUM ENZYMES
[2019-10-20] MEDS: ATORVASTATIN CA 80 MG TABLET (FP) PO SCH (22:04)
[2019-10-21] MEDS: HYDROCORTISONE SOD SUCCINATE 100 MG/2 ML VIAL IVPB SCH ×3 (02:00→17:22)
[2019-10-21] MEDS: LEVOTHYROXINE NA 75 MCG TABLET (FP) PO SCH (06:31)
[2019-10-21 06:58] LABS: BASO % 0.1 % (0-2.0); HEMATOCRIT 25.7 % (32.4-45.2); HEMOGLOBIN 8.4 GM/dL (10.7-15.3); MCH 32.1 pg (25.7-33.7); MCHC 32.8 g/dl (32.0-36.0); MEAN CELL VOLUME 97.8 fl (80-96); MEAN PLT VOLUME 9.9 fl (7.5-11.1); MONO % 4.4 % (3.8-10.2); NEUT % 94.5 % (42.8-82.8); PLATELET COUNT 110 K/MM3 (134-434); RBC 2.63 M/mm3 (3.60-5.2); RDW 19.6 % (11.6-15.6); WHITE BLOOD COUNT 8.9 K/mm3 (4.0-10.0)
[2019-10-21 07:31] LABS: ALBUMIN 1.7 g/dl (3.4-5.0); BILIRUBIN,TOTAL 0.4 mg/dL (0.2-1); BLOOD UREA NITROGEN 38.4 mg/dL (7-18); CALCIUM 8.2 mg/dL (8.5-10.1); CREATININE 2.9 mg/dL (0.55-1.3); MAGNESIUM 2.1 mg/dL (1.8-2.4); PHOSPHOROUS 4.2 mg/dL (2.5-4.9); POTASSIUM 4.1 mmol/L (3.5-5.1); TOT PROT 6.2 g/dl (6.4-8.2)
[2019-10-21] MEDS: ALBUMIN HUMAN 25% 12.5 GM/50 ML VIAL IVPB SCH ×4 (08:00→10:53)
[2019-10-21] MEDS ORDERED: SODIUM CHLORIDE 250 ML IV PRN (08:00)
[2019-10-21 09:57] LABS: ANISOCYTOSIS 2+; MACROCYTOSIS 1+; PLATELET ESTIMATE DECREASED
--- NOTE | 2019-10-21 10:40 | PN ---
Progress Note (short form) - Note Progress Note: Resting in NAD. Awake and alert. Reports feeling a little better today. Intake & Output 10/18/19 10/19/19 10/20/19 10/21/19 23:59 23:59 23:59 23:59 Intake Total 366 964 450 400 Output Total 50 3070 50 Balance 316 -2106 400 400 Weight 160 lb 9 oz 159 lb 6 oz 159 lb 5 oz 160 lb 2 oz Last Vital Signs Temp Pulse Resp BP Pulse Ox 97.9 F 73 20 102/54 L 99 10/21/19 08:00 10/21/19 09:30 10/21/19 09:30 10/21/19 09:30 10/21/19 10:00 Active Medications Acetaminophen (Tylenol -) 650 mg PO Q6H PRN PRN Reason: FEVER Last Admin: 10/07/19 21:49 Dose: 650 mg Albuterol/Ipratropium (Duoneb -) 1 amp NEB Q4H PRN PRN Reason: SHORTNESS OF BREATH Last Admin: 10/20/19 20:00 Dose: 1 amp Allopurinol (Zyloprim -) 100 mg PO DAILY [facility] Last Admin: 10/20/19 09:50 Dose: 100 mg Amiodarone HCl (Cordarone -) 200 mg PO BID [facility] Last Admin: 10/20/19 22:04 Dose: 200 mg Aspirin (Ecotrin -) 81 mg PO DAILY [facility] Last Admin: 10/20/19 09:48 Dose: 81 mg Atorvastatin Calcium (Lipitor -) 80 mg PO HS [facility] Last Admin: 10/20/19 22:04 Dose: 80 mg Clopidogrel Bisulfate (Plavix -) 75 mg PO DAILY [facility] Last Admin: 10/20/19 09:49 Dose: 75 mg Escitalopram Oxalate (Lexapro -) 10 mg PO DAILY [facility] Last Admin: 10/20/19 09:48 Dose: 10 mg Hydrocortisone Sodium Succinate (Solu-Cortef -) 50 mg IVPB Q8H-IV [facility] Last Admin: 10/21/19 02:00 Dose: 50 mg Levothyroxine Sodium (Synthroid -) 75 mcg PO DAILY@0700 [facility] Last Admin: 10/21/19 06:31 Dose: 75 mcg Midodrine (Proamatine -) 10 mg PO TID-MID [facility] Last Admin: 10/20/19 17:31 Dose: 10 mg Pantoprazole Sodium (Protonix -) 40 mg PO DAILY [facility] Last Admin: 10/20/19 09:50 Dose: 40 mg Silver Sulfadiazine (Silvadene -) 1 applic TP DAILY [facility] Last Admin: 10/20/19 09:50 Dose: 1 applic Valacyclovir HCl (Valtrex -) 500 mg PO DAILY [facility] Last Admin: 10/20/19 14:43 Dose: 500 mg Gen: Awake and alert, NAD Heart: RRR Lung: scattered rhonchi Abd: soft, nontender Ext: + edema Laboratory Results - last 24 hr 10/21/19 10/21/19 10/21/19 05:40 05:40 05:40 WBC 8.9 RBC 2.63 L Hgb 8.4 L Hct 25.7 L MCV 97.8 H MCH 32.1 MCHC 32.8 RDW 19.6 H Plt Count 110 L MPV 9.9 Absolute Neuts (auto) 8.4 H Neutrophils % 94.5 H Neutrophils % (Manual) 97.0 H Band Neutrophils % 0.0 Lymphocytes % 1.0 L D Lymphocytes % (Manual) 0.0 L Monocytes % 4.4 Monocytes % (Manual) 2 L Eosinophils % 0.0 Eosinophils % (Manual) 0.0 Basophils % 0.1 Basophils % (Manual) 0.0 Myelocytes % (Man) 1 D Promyelocytes % (Man) 0 Blast Cells % (Manual) 0 Nucleated RBC % 0 Metamyelocytes 0 Platelet Estimate Decreased Anisocytosis 2+ Macrocytosis 1+ PTT (Actin FS) 29.6 Sodium 138 Potassium 4.1 Chloride 99 Carbon Dioxide 29 Anion Gap 10 BUN 38.4 H Creatinine 2.9 H Est GFR (CKD-EPI)AfAm 17.62 Est GFR (CKD-EPI)NonAf 15.20 Random Glucose 120 H Calcium 8.2 L Phosphorus 4.2 Magnesium 2.1 Total Bilirubin 0.4 AST 21 ALT 42 Alkaline Phosphatase 79 Total Protein 6.2 L Albumin 1.7 L ASSESSMENT AND PLAN: Acute on Chronic Systolic Heart Failure Cardiogenic Shock Acute on Chronic Renal Failure CAD Acute NSTEMI Paroxysmal Atrial Fibrillation Pneumonia Asthma Multiple Myeloma HTN Hyperlipidemia Hypothyroidism Anemia Hyponatremia - HD per renal with ultrafiltration - monitor urine output, creatinine - daily weights - amiodarone - monitor H/H - completed antibiotics - O2 to keep SpO2 >90% - inhaled bronchodilators as needed - BiPAP to assist in work of breathing - taper hydrocortisone - DVT prophylaxis Dr Bacon
[2019-10-21 12:23] LABS: CREATININE 1.2 mg/dL (0.55-1.3)
[2019-10-21] MEDS: AMIODARONE HCL 200 MG TABLET (FP) PO SCH ×2 (12:25→22:23)
[2019-10-21] MEDS: ESCITALOPRAM OXALATE 10 MG TABLET (FP) PO SCH (12:26)
[2019-10-21] MEDS: ASPIRIN COATED 81 MG TABLET.EC PO SCH (12:26)
[2019-10-21] MEDS: CLOPIDOGREL BISULFATE 75 MG TABLET (FP) PO SCH (12:27)
[2019-10-21] MEDS: PANTOPRAZOLE 40 MG TABLET (FP) PO SCH (12:27)
[2019-10-21] MEDS: MIDODRINE HCL 5 MG TABLET PO SCH ×3 (12:27→18:14)
[2019-10-21] MEDS: ALLOPURINOL 100 MG TABLET (FP) PO SCH (12:29)
[2019-10-21] MEDS: valACYclovir HCL 500 MG TABLET (FP) PO SCH (12:29)
--- NOTE | 2019-10-21 12:57 | PN ---
Progress Note, Physician History of Present Illness: stable no new issues - Current Medication List Current Medications: Active Medications Acetaminophen (Tylenol -) 650 mg PO Q6H PRN PRN Reason: FEVER Last Admin: 10/07/19 21:49 Dose: 650 mg Albuterol/Ipratropium (Duoneb -) 1 amp NEB Q4H PRN PRN Reason: SHORTNESS OF BREATH Last Admin: 10/20/19 20:00 Dose: 1 amp Allopurinol (Zyloprim -) 100 mg PO DAILY [facility] Last Admin: 10/21/19 12:29 Dose: 100 mg Amiodarone HCl (Cordarone -) 200 mg PO BID [facility] Last Admin: 10/21/19 12:25 Dose: 200 mg Aspirin (Ecotrin -) 81 mg PO DAILY [facility] Last Admin: 10/21/19 12:26 Dose: 81 mg Atorvastatin Calcium (Lipitor -) 80 mg PO HS [facility] Last Admin: 10/20/19 22:04 Dose: 80 mg Clopidogrel Bisulfate (Plavix -) 75 mg PO DAILY [facility] Last Admin: 10/21/19 12:27 Dose: 75 mg Escitalopram Oxalate (Lexapro -) 10 mg PO DAILY [facility] Last Admin: 10/21/19 12:26 Dose: 10 mg Hydrocortisone Sodium Succinate (Solu-Cortef -) 50 mg IVPB Q8H-IV [facility] Last Admin: 10/21/19 10:00 Dose: 50 mg Levothyroxine Sodium (Synthroid -) 75 mcg PO DAILY@0700 [facility] Last Admin: 10/21/19 06:31 Dose: 75 mcg Midodrine (Proamatine -) 10 mg PO TID-MID [facility] Last Admin: 10/21/19 12:27 Dose: 10 mg Pantoprazole Sodium (Protonix -) 40 mg PO DAILY [facility] Last Admin: 10/21/19 12:27 Dose: 40 mg Silver Sulfadiazine (Silvadene -) 1 applic TP DAILY [facility] Last Admin: 10/20/19 09:50 Dose: 1 applic Valacyclovir HCl (Valtrex -) 500 mg PO DAILY [facility] Last Admin: 10/21/19 12:29 Dose: 500 mg - Objective Vital Signs: Vital Signs Temperature 97.9 F 10/21/19 12:00 Pulse Rate 74 10/21/19 12:00 Respiratory Rate 18 10/21/19 12:00 Blood Pressure 101/55 L 10/21/19 12:00 O2 Sat by Pulse Oximetry (%) 97 10/21/19 12:37 Constitutional: Yes: No Distress, Calm Cardiovascular: Yes: S1, S2 Respiratory: Yes: Regular, CTA Bilaterally, On Nasal O2 Gastrointestinal: Yes: Normal Bowel Sounds, Soft Musculoskeletal: Yes: WNL Extremities: Yes: WNL Neurological: Yes: Alert, Oriented Psychiatric: Yes: Alert, Oriented Labs: CBC, BMP 10/21/19 05:40 10/21/19 10:55 INR, PTT INR 0.99 (0.83-1.09) 10/07/19 02:55 Assessment/Plan Problem List - Problems (1) Depression Code(s): F32.9 - MAJOR DEPRESSIVE DISORDER, SINGLE EPISODE, UNSPECIFIED (2) ASHD (arteriosclerotic heart disease) Code(s): I25.10 - ATHSCL HEART DISEASE OF [place] CORONARY ARTERY W/O ANG PCTRS (3) Acute on chronic renal failure Code(s): N17.9 - ACUTE KIDNEY FAILURE, UNSPECIFIED; N18.9 - CHRONIC KIDNEY DISEASE, UNSPECIFIED Qualifiers: Chronic kidney disease stage: stage 2 (mild) (4) Acute on chronic systolic CHF (congestive heart failure) Code(s): I50.23 - ACUTE ON CHRONIC SYSTOLIC (CONGESTIVE) HEART FAILURE (5) Anemia Code(s): D64.9 - ANEMIA, UNSPECIFIED Qualifiers: Chronic kidney disease stage: unspecified stage (6) CAD (coronary artery disease) Code(s): I25.10 - ATHSCL HEART DISEASE OF [place] CORONARY ARTERY W/O ANG PCTRS Qualifiers: (7) CHF (congestive heart failure) Code(s): I50.9 - HEART FAILURE, UNSPECIFIED Qualifiers: Heart failure type: systolic Heart failure chronicity: unspecified Qualified Code(s): I50.20 - Unspecified systolic (congestive) heart failure (8) Hypothyroidism Code(s): E03.9 - HYPOTHYROIDISM, UNSPECIFIED Qualifiers: Hypothyroidism type: acquired Qualified Code(s): E03.9 - Hypothyroidism, unspecified (9) Multiple myeloma Code(s): C90.00 - MULTIPLE MYELOMA NOT HAVING ACHIEVED REMISSION Qualifiers: Multiple myeloma remission status: not in remission Qualified Code(s): C90.00 - Multiple myeloma not having achieved remission Assessment/Plan UTI Acute on Chronic HF Cardiogenic Shock DEBBIE on CKD Multiple Myeloma Amyloid CAD Anemia Hypothyroidism Asthma Depression plan continue current mgmt rest as per the team cr normalized watch
--- NOTE | 2019-10-21 14:00 | PN ---
Progress Note, Physician History of Present Illness: Pt seen and examined at bedside. She is awake and alert. She tolerated HD today. - Current Medication List Current Medications: Active Medications Acetaminophen (Tylenol -) 650 mg PO Q6H PRN PRN Reason: FEVER Last Admin: 10/07/19 21:49 Dose: 650 mg Albuterol/Ipratropium (Duoneb -) 1 amp NEB Q4H PRN PRN Reason: SHORTNESS OF BREATH Last Admin: 10/20/19 20:00 Dose: 1 amp Allopurinol (Zyloprim -) 100 mg PO DAILY [facility] Last Admin: 10/21/19 12:29 Dose: 100 mg Amiodarone HCl (Cordarone -) 200 mg PO BID [facility] Last Admin: 10/21/19 12:25 Dose: 200 mg Aspirin (Ecotrin -) 81 mg PO DAILY [facility] Last Admin: 10/21/19 12:26 Dose: 81 mg Atorvastatin Calcium (Lipitor -) 80 mg PO HS [facility] Last Admin: 10/20/19 22:04 Dose: 80 mg Clopidogrel Bisulfate (Plavix -) 75 mg PO DAILY [facility] Last Admin: 10/21/19 12:27 Dose: 75 mg Escitalopram Oxalate (Lexapro -) 10 mg PO DAILY [facility] Last Admin: 10/21/19 12:26 Dose: 10 mg Hydrocortisone Sodium Succinate (Solu-Cortef -) 50 mg IVPB Q8H-IV [facility] Last Admin: 10/21/19 10:00 Dose: 50 mg Levothyroxine Sodium (Synthroid -) 75 mcg PO DAILY@0700 [facility] Last Admin: 10/21/19 06:31 Dose: 75 mcg Midodrine (Proamatine -) 10 mg PO TID-MID [facility] Last Admin: 10/21/19 12:27 Dose: 10 mg Pantoprazole Sodium (Protonix -) 40 mg PO DAILY [facility] Last Admin: 10/21/19 12:27 Dose: 40 mg Silver Sulfadiazine (Silvadene -) 1 applic TP DAILY [facility] Last Admin: 10/20/19 09:50 Dose: 1 applic Valacyclovir HCl (Valtrex -) 500 mg PO DAILY [facility] Last Admin: 10/21/19 12:29 Dose: 500 mg - Objective Vital Signs: Vital Signs Temperature 97.9 F 10/21/19 12:00 Pulse Rate 74 10/21/19 12:00 Respiratory Rate 18 10/21/19 12:00 Blood Pressure 101/55 L 10/21/19 12:00 O2 Sat by Pulse Oximetry (%) 97 10/21/19 12:37 Constitutional: Yes: Calm Eyes: Yes: Conjunctiva Clear HENT: Yes: Atraumatic Neck: Yes: Supple Cardiovascular: Yes: S1, S2 Respiratory: Yes: CTA Bilaterally Gastrointestinal: Yes: Normal Bowel Sounds, Soft Genitourinary: Yes: Incontinence, Oliguria Musculoskeletal: Yes: Muscle Weakness Edema: Yes Edema: LLE: 1+, RLE: 1+ Neurological: Yes: Oriented Psychiatric: Yes: Oriented Labs: CBC, BMP 10/21/19 05:40 10/21/19 10:55 INR, PTT INR 0.99 (0.83-1.09) 10/07/19 02:55 Problem List - Problems (1) Fluid overload Code(s): E87.70 - FLUID OVERLOAD, UNSPECIFIED (2) CKD (chronic kidney disease) Code(s): N18.9 - CHRONIC KIDNEY DISEASE, UNSPECIFIED Assessment/Plan Current Medications Generic Name Dose Route Start Last Admin Trade Name Freq PRN Reason Stop Dose Admin Acetaminophen 650 mg 09/20/19 22:25 10/07/19 21:49 Tylenol - PO 650 mg Q6H PRN Administration FEVER Albuterol/Ipratropium 1 amp 10/17/19 15:39 10/20/19 20:00 Duoneb - NEB 1 amp Q4H PRN Administration SHORTNESS OF BREATH Allopurinol 100 mg 10/10/19 13:49 10/21/19 12:29 Zyloprim - PO 100 mg DAILY [facility] Administration Amiodarone HCl 200 mg 10/11/19 12:54 10/21/19 12:25 Cordarone - PO 200 mg BID [facility] Administration Aspirin 81 mg 09/25/19 10:00 10/21/19 12:26 Ecotrin - PO 81 mg DAILY [facility] Administration Atorvastatin Calcium 80 mg 10/14/19 22:00 10/20/19 22:04 Lipitor - PO 80 mg HS [facility] Administration Clopidogrel Bisulfate 75 mg 10/18/19 10:30 10/21/19 12:27 Plavix - PO 75 mg DAILY [facility] Administration Escitalopram Oxalate 10 mg 09/21/19 10:00 10/21/19 12:26 Lexapro - PO 10 mg DAILY [facility] Administration Hydrocortisone Sodium Succinate 50 mg 10/19/19 18:00 10/21/19 10:00 Solu-Cortef - IVPB 50 mg Q8H-IV [facility] Administration Levothyroxine Sodium 75 mcg 09/21/19 07:00 10/21/19 06:31 Synthroid - PO 75 mcg DAILY@0700 [facility] Administration Midodrine 10 mg 10/06/19 18:00 10/21/19 12:27 Proamatine - PO 10 mg TID-MID [facility] Administration Pantoprazole Sodium 40 mg 09/21/19 10:00 10/21/19 12:27 Protonix - PO 40 mg DAILY [facility] Administration Silver Sulfadiazine 1 applic 10/19/19 20:00 10/20/19 09:50 Silvadene - TP 1 applic DAILY [facility] Administration Valacyclovir HCl 500 mg 09/21/19 10:00 10/21/19 12:29 Valtrex - PO 500 mg DAILY [facility] Administration Impression 1. proteinuria 2. multiple myeloma 3. amyloid 4. dizziness 5. hypotension 6. HLD 7. hypothyroidism 8. anemia 9. CKD 10. fluid overload 11. hypotension 12. hyperkalemia 13. nstemi 14. DEBBIE Plan - HD today - can remove shiley - lasix on non HD days and monitor urine output over weekend - pt remains oliguric - prognosis is poor
--- NOTE | 2019-10-21 15:23 | PN ---
Progress Note, [employer]ENT - Note Progress Note: Selected Entries 10/20/19 10/20/19 10/20/19 02:00 06:00 10:00 Breakfast Lunch Temperature 97.6 F 97.8 F 98.5 F 10/20/19 10/20/19 10/20/19 13:35 14:00 22:00 Breakfast 50% Lunch 50% Temperature 98 F 98.3 F 10/21/19 10/21/19 10/21/19 02:00 06:00 06:55 Breakfast Lunch Temperature 98.0 F 98 F 98.2 F 10/21/19 10/21/19 10/21/19 08:00 12:00 14:00 Breakfast Lunch Temperature 97.9 F 97.9 F 97.4 F L Laboratory Tests 10/20/19 10/21/19 06:00 05:40 WBC 9.6 8.9 Diet Consistency: Dysphagia Pureed (trial), Other (If oral holding, mix puree in liquid to drink- eg puree in soup, hot cereal in milk to drink, until pt improves.) Medication Administration: Crushed with applesauce Liquids: Thin Liquids Supplement: Ensure (Ensure clear) On puree/thin liquids Poor PO acceptance per staff.
[2019-10-21] MEDS: SILVER SULFADIAZINE 1% TOP CREAM 50 GM JAR TP SCH (15:59)
[2019-10-21] MEDS ORDERED: ACETAMINOPHEN 325 MG TABLET (FP) PO PRN (18:26)
[2019-10-21] MEDS: ATORVASTATIN CA 80 MG TABLET (FP) PO SCH (22:23)
--- NOTE | 2019-10-21 23:49 | PN ---
Progress Note, Physician - Current Medication List Current Medications: Active Medications Acetaminophen (Tylenol -) 650 mg PO Q6H PRN PRN Reason: FEVER Albuterol/Ipratropium (Duoneb -) 1 amp NEB Q4H PRN PRN Reason: SHORTNESS OF BREATH Allopurinol (Zyloprim -) 100 mg PO DAILY [facility] Amiodarone HCl (Cordarone -) 200 mg PO BID [facility] Last Admin: 10/21/19 22:23 Dose: 200 mg Aspirin (Ecotrin -) 81 mg PO DAILY [facility] Atorvastatin Calcium (Lipitor -) 80 mg PO HS [facility] Last Admin: 10/21/19 22:23 Dose: 80 mg Clopidogrel Bisulfate (Plavix -) 75 mg PO DAILY [facility] Escitalopram Oxalate (Lexapro -) 10 mg PO DAILY [facility] Hydrocortisone Sodium Succinate (Solu-Cortef -) 50 mg IVPB Q8H-IV [facility] Levothyroxine Sodium (Synthroid -) 75 mcg PO DAILY@0700 [facility] Midodrine (Proamatine -) 10 mg PO TID-MID [facility] Pantoprazole Sodium (Protonix -) 40 mg PO DAILY [facility] Silver Sulfadiazine (Silvadene -) 1 applic TP DAILY [facility] Valacyclovir HCl (Valtrex -) 500 mg PO DAILY [facility] - Objective Vital Signs: Vital Signs Temperature 97.5 F L 10/21/19 18:00 Pulse Rate 80 10/21/19 18:00 Respiratory Rate 19 10/21/19 18:00 Blood Pressure 102/55 L 10/21/19 18:00 O2 Sat by Pulse Oximetry (%) 98 10/21/19 22:15 Labs: CBC, BMP 10/21/19 05:40 10/21/19 10:55 INR, PTT INR 0.99 (0.83-1.09) 10/07/19 02:55 Problem List - Problems (1) Acute on chronic renal failure Code(s): N17.9 - ACUTE KIDNEY FAILURE, UNSPECIFIED; N18.9 - CHRONIC KIDNEY DISEASE, UNSPECIFIED (2) Acute on chronic systolic CHF (congestive heart failure) Code(s): I50.23 - ACUTE ON CHRONIC SYSTOLIC (CONGESTIVE) HEART FAILURE (3) Multiple myeloma Code(s): C90.00 - MULTIPLE MYELOMA NOT HAVING ACHIEVED REMISSION Qualifiers: Multiple myeloma remission status: not in remission Qualified Code(s): C90.00 - Multiple myeloma not having achieved remission (4) HLD (hyperlipidemia) Code(s): E78.5 - HYPERLIPIDEMIA, UNSPECIFIED Qualifiers: Hyperlipidemia type: unspecified Qualified Code(s): E78.5 - Hyperlipidemia , unspecified (5) Hypothyroidism Code(s): E03.9 - HYPOTHYROIDISM, UNSPECIFIED Qualifiers: Hypothyroidism type: acquired Qualified Code(s): E03.9 - Hypothyroidism, unspecified (6) CAD (coronary artery disease) Code(s): I25.10 - ATHSCL HEART DISEASE OF [place] CORONARY ARTERY W/O ANG PCTRS Qualifiers: (7) Depression Code(s): F32.9 - MAJOR DEPRESSIVE DISORDER, SINGLE EPISODE, UNSPECIFIED (8) History of heart artery stent Code(s): Z95.5 - PRESENCE OF CORONARY ANGIOPLASTY IMPLANT AND GRAFT (9) Diarrhea Code(s): R19.7 - [place], UNSPECIFIED Qualifiers: Diarrhea type: unspecified type Qualified Code(s): R19.7 - Diarrhea, unspecified (10) UTI (urinary tract infection) Code(s): N39.0 - URINARY TRACT INFECTION, SITE NOT SPECIFIED (11) Elevated troponin Code(s): R74.8 - ABNORMAL LEVELS OF OTHER SERUM ENZYMES
[2019-10-22] MEDS: HYDROCORTISONE SOD SUCCINATE 100 MG/2 ML VIAL IVPB SCH ×3 (01:33→17:15)
--- NOTE | 2019-10-22 02:57 | PN ---
Progress Note, Physician Chief Complaint: Pt A&Ox3; tired; no chest pain; constipated (not eating much; requests stool softener); depressed. History of Present Illness: 74 year old black female with PMH multiple myeloma, amyloidosis (s/p chemotherapy, abdomen-directed radiation Tx), HTN, HLD, CAD: NSEMI early 2018--> DE stent of D1 at [facility], GERD, ? "mild" systolic CHF (now noted severely reduced LVEF on ECHO), on Lasix, rectal hemorrhoids, PAF (brief runs early 2018 ; not on anticoagulation due to severe anemia, hx GI bleed), now presented to ED for diarrhea x2 days associated with generalized weakness, ROGERS. Pt reported she has had loose, watery diarrhea x2 days, and prior to that he had rectal bleeding x2 days (on toilet paper and mixed in stool) that self resolved. She reported she only noticed the bleeding because it was on the toilet paper, as she did not have abdominal or rectal pain. Pt reported generalized weakness and ROGERS, which prompted her to come to the ED. Pt denied nausea, vomiting, fever, abdominal pain, chest pain, increased LE swelling. She reported she believed her lower extremity swelling is actually improving. She also reported noticing a new "rash" to her right hip since last week. - Current Medication List Current Medications: Active Medications Acetaminophen (Tylenol -) 650 mg PO Q6H PRN PRN Reason: FEVER Albuterol/Ipratropium (Duoneb -) 1 amp NEB Q4H PRN PRN Reason: SHORTNESS OF BREATH Allopurinol (Zyloprim -) 100 mg PO DAILY [facility] Amiodarone HCl (Cordarone -) 200 mg PO BID [facility] Last Admin: 10/21/19 22:23 Dose: 200 mg Aspirin (Ecotrin -) 81 mg PO DAILY [facility] Atorvastatin Calcium (Lipitor -) 80 mg PO HS [facility] Last Admin: 10/21/19 22:23 Dose: 80 mg Clopidogrel Bisulfate (Plavix -) 75 mg PO DAILY [facility] Escitalopram Oxalate (Lexapro -) 10 mg PO DAILY [facility] Hydrocortisone Sodium Succinate (Solu-Cortef -) 50 mg IVPB Q8H-IV [facility] Last Admin: 10/22/19 01:33 Dose: 50 mg Levothyroxine Sodium (Synthroid -) 75 mcg PO DAILY@0700 [facility] Midodrine (Proamatine -) 10 mg PO TID-MID [facility] Pantoprazole Sodium (Protonix -) 40 mg PO DAILY [facility] Silver Sulfadiazine (Silvadene -) 1 applic TP DAILY [facility] Valacyclovir HCl (Valtrex -) 500 mg PO DAILY [facility] - Objective Vital Signs: Vital Signs Temperature 97.8 F 10/22/19 02:00 Pulse Rate 72 10/22/19 02:00 Respiratory Rate 19 10/22/19 02:00 Blood Pressure 99/52 L 10/22/19 02:00 O2 Sat by Pulse Oximetry (%) 98 10/21/19 22:15 Constitutional: Yes: Mild Distress, Other (depressed) Eyes: Yes: WNL HENT: Yes: WNL Neck: Yes: WNL Cardiovascular: Yes: S1, S2 Respiratory: Yes: Diminished, Rales Gastrointestinal: Yes: Soft ...Rectal Exam: Yes: Deferred Genitourinary: No: Anuria Breast(s): Yes: WNL Musculoskeletal: Yes: Muscle Weakness Extremities: Yes: Cool Edema: Yes Peripheral Pulses WNL: No Peripheral Pulses: Left Doralis Pedis: 1+, Right Dorsalis Pedis: 1+ Integumentary: Yes: WNL Neurological: Yes: Alert, Oriented, Weakness Psychiatric: Yes: Alert, Oriented, Other (depressed) Labs: CBC, BMP 10/21/19 05:40 10/21/19 10:55 INR, PTT INR 0.99 (0.83-1.09) 10/07/19 02:55 - ....Imaging Chest X-ray: Image Reviewed EKG: Image Reviewed Other: Image Reviewed (telemetry: NSR) Problem List - Problems (1) Weakness Code(s): R53.1 - WEAKNESS (2) ASHD (arteriosclerotic heart disease) Code(s): I25.10 - ATHSCL HEART DISEASE OF [place] CORONARY ARTERY W/O ANG PCTRS (3) Acute on chronic systolic CHF (congestive heart failure) Assessment/Plan: Pt remains on PO amiodarone 200 bid (change to 100 mg bid next week); on IV Solucortef. Fragile hemodynamics preclude restarting ACEI, spironolactone. Now on regular hemodialysis. F/u BUN/Cr, electrolytes, Is and Os, daily weight. Code(s): I50.23 - ACUTE ON CHRONIC SYSTOLIC (CONGESTIVE) HEART FAILURE (4) Adult onset hypothyroidism Assessment/Plan: mildly elevated TSH; normal Free T4 in ICU setting. Code(s): E03.8 - OTHER SPECIFIED HYPOTHYROIDISM (5) Anxiety Code(s): F41.9 - ANXIETY DISORDER, UNSPECIFIED (6) Elevated troponin Assessment/Plan: Imp: demand ischemia, with acute systolic CHF a principal contributer. Continue hemodialysis; fluid removal is crucial. Continue ASA and clopidogrel. Code(s): R74.8 - ABNORMAL LEVELS OF OTHER SERUM ENZYMES (7) HLD (hyperlipidemia) Code(s): E78.5 - HYPERLIPIDEMIA, UNSPECIFIED Qualifiers: Hyperlipidemia type: unspecified Qualified Code(s): E78.5 - Hyperlipidemia , unspecified (8) History of heart artery stent Code(s): Z95.5 - PRESENCE OF CORONARY ANGIOPLASTY IMPLANT AND GRAFT (9) Multiple myeloma Code(s): C90.00 - MULTIPLE MYELOMA NOT HAVING ACHIEVED REMISSION Qualifiers: Multiple myeloma remission status: not in remission Qualified Code(s): C90.00 - Multiple myeloma not having achieved remission (10) Pancytopenia Code(s): D61.818 - OTHER PANCYTOPENIA (11) NSTEMI (non-ST elevated myocardial infarction) Code(s): I21.4 - NON-ST ELEVATION (NSTEMI) MYOCARDIAL INFARCTION (12) Acute renal insufficiency Code(s): N28.9 - DISORDER OF KIDNEY AND URETER, UNSPECIFIED (13) Hypoalbuminemia Code(s): E88.09 - OTH DISORDERS OF PLASMA-PROTEIN METABOLISM, NEC (14) Hyperkalemia Code(s): E87.5 - HYPERKALEMIA (15) Chest pain Code(s): R07.9 - CHEST PAIN, UNSPECIFIED Qualifiers: Chest pain type: unspecified Qualified Code(s): R07.9 - Chest pain, unspecified (16) PAF (paroxysmal atrial fibrillation) Code(s): I48.0 - PAROXYSMAL ATRIAL FIBRILLATION (17) Renal failure Code(s): N19 - UNSPECIFIED KIDNEY FAILURE Assessment/Plan CCU time spent : 35 minutes'
[2019-10-22] MEDS: LEVOTHYROXINE NA 75 MCG TABLET (FP) PO SCH (06:07)
[2019-10-22 06:58] LABS: HEMATOCRIT 26.4 % (32.4-45.2); HEMOGLOBIN 8.6 GM/dL (10.7-15.3); MCH 32.2 pg (25.7-33.7); MCHC 32.7 g/dl (32.0-36.0); MEAN CELL VOLUME 98.5 fl (80-96); PLATELET COUNT 96 K/MM3 (134-434); RBC 2.68 M/mm3 (3.60-5.2); RDW 20.1 % (11.6-15.6); WHITE BLOOD COUNT 8.7 K/mm3 (4.0-10.0)
[2019-10-22] MEDS: ALLOPURINOL 100 MG TABLET (FP) PO SCH (09:25)
[2019-10-22] MEDS: PANTOPRAZOLE 40 MG TABLET (FP) PO SCH (09:25)
[2019-10-22] MEDS: AMIODARONE HCL 200 MG TABLET (FP) PO SCH ×2 (09:26→22:14)
[2019-10-22] MEDS: ASPIRIN COATED 81 MG TABLET.EC PO SCH (09:26)
[2019-10-22] MEDS: ESCITALOPRAM OXALATE 10 MG TABLET (FP) PO SCH (09:26)
[2019-10-22] MEDS: CLOPIDOGREL BISULFATE 75 MG TABLET (FP) PO SCH (09:26)
[2019-10-22] MEDS: MIDODRINE HCL 5 MG TABLET PO SCH ×3 (09:27→17:15)
[2019-10-22] MEDS: valACYclovir HCL 500 MG TABLET (FP) PO SCH (09:28)
[2019-10-22] MEDS: SILVER SULFADIAZINE 1% TOP CREAM 50 GM JAR TP SCH (09:37)
--- NOTE | 2019-10-22 09:59 | PN ---
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 Hemodynamics stable. No recurrent PAF. - Current Medication List Current Medications: Active Medications Acetaminophen (Tylenol -) 650 mg PO Q6H PRN PRN Reason: FEVER Albuterol/Ipratropium (Duoneb -) 1 amp NEB Q4H PRN PRN Reason: SHORTNESS OF BREATH Allopurinol (Zyloprim -) 100 mg PO DAILY [facility] Last Admin: 10/22/19 09:25 Dose: 100 mg Amiodarone HCl (Cordarone -) 200 mg PO BID [facility] Last Admin: 10/22/19 09:26 Dose: 200 mg Aspirin (Ecotrin -) 81 mg PO DAILY [facility] Last Admin: 10/22/19 09:26 Dose: 81 mg Atorvastatin Calcium (Lipitor -) 80 mg PO HS [facility] Last Admin: 10/21/19 22:23 Dose: 80 mg Clopidogrel Bisulfate (Plavix -) 75 mg PO DAILY [facility] Last Admin: 10/22/19 09:26 Dose: 75 mg Escitalopram Oxalate (Lexapro -) 10 mg PO DAILY [facility] Last Admin: 10/22/19 09:26 Dose: 10 mg Hydrocortisone Sodium Succinate (Solu-Cortef -) 50 mg IVPB Q8H-IV [facility] Last Admin: 10/22/19 09:28 Dose: 50 mg Levothyroxine Sodium (Synthroid -) 75 mcg PO DAILY@0700 [facility] Last Admin: 10/22/19 06:07 Dose: 75 mcg Midodrine (Proamatine -) 10 mg PO TID-MID [facility] Last Admin: 10/22/19 09:27 Dose: 10 mg Pantoprazole Sodium (Protonix -) 40 mg PO DAILY [facility] Last Admin: 10/22/19 09:25 Dose: 40 mg Silver Sulfadiazine (Silvadene -) 1 applic TP DAILY [facility] Last Admin: 10/22/19 09:37 Dose: 1 applic Valacyclovir HCl (Valtrex -) 500 mg PO DAILY [facility] Last Admin: 10/22/19 09:28 Dose: 500 mg - Objective Vital Signs: Vital Signs Temperature 98.1 F 10/22/19 08:32 Pulse Rate 82 10/22/19 08:24 Respiratory Rate 26 H 10/22/19 08:24 Blood Pressure 100/61 10/22/19 08:24 O2 Sat by Pulse Oximetry (%) 100 10/22/19 08:51 Constitutional: Yes: No Distress, Calm, Thin Neck: Yes: Supple Cardiovascular: Yes: Regular Rate and Rhythm Respiratory: Yes: Regular, Diminished, On Nasal O2 Gastrointestinal: Yes: Normal Bowel Sounds, Soft Edema: No Labs: CBC, BMP 10/22/19 05:50 10/21/19 10:55 INR, PTT INR 0.99 (0.83-1.09) 10/07/19 02:55 - ....Imaging EKG: Report Reviewed (Tele: NSR, no PAF) Assessment/Plan (1) Hypoxia Code(s): R09.02 - HYPOXEMIA (2) Weakness Code(s): R53.1 - WEAKNESS (3) ASHD (arteriosclerotic heart disease) Code(s): I25.10 - ATHSCL HEART DISEASE OF [place] CORONARY ARTERY W/O ANG PCTRS (4) Acute on chronic systolic CHF (congestive heart failure) Assessment/Plan: off losartan to raising K and bun/cr and hypotension F/u BUN/Cr, electrolytes, daily weight, Is and Os. ECHO: severely reduced LVEF; small pericardial effusion which is not hemodynamically significant; pleural effuson. Plan to re start carvedilol or metoprolol if BP and HR allow. Code(s): I50.23 - ACUTE ON CHRONIC SYSTOLIC (CONGESTIVE) HEART FAILURE (5) Adult onset hypothyroidism Assessment/Plan: elevated TSH; f/u Free T4. Code(s): E03.8 - OTHER SPECIFIED HYPOTHYROIDISM (6) Anxiety Code(s): F41.9 - ANXIETY DISORDER, UNSPECIFIED (7) Elevated troponin Code(s): R74.8 - ABNORMAL LEVELS OF OTHER SERUM ENZYMES (8) HLD (hyperlipidemia) Assessment/Plan: On statin. LDL elevated in March; f/u lipid profile. Code(s): E78.5 - HYPERLIPIDEMIA, UNSPECIFIED Qualifiers: Hyperlipidemia type: unspecified Qualified Code(s): E78.5 - Hyperlipidemia , unspecified (9) HTN (hypertension) Assessment/Plan: off losartan pending hemodynamic and renal fxn stabilization Would start beta savana if remains stable, even if BP is relatively low-normal , given severity of systolic dysfunction. 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 Acute on chronic class II NYHA classification LV systolic failure 2. CAD post [place]/PCI/stent demand ischemia angina pectoris 3. HTN 4. Hyperlipidemia, not at goal 5. PNA, History of Asthma 6. Paroxysmal Atrial Fibrillation->SR 7. Oliguric acute on CKD on HD 8. Multiple Myeloma 9. Anemia 10. Hypothyroidism 11. Amyloid 12. Hyponatremia PLAN: 1. HD and Lasix on non HD days per renal with monitoring of renal function, urine output and electrolytes 2. Midodrine 10 tid, resume Coreg and Entresto once hemodyanamics stabilize 3. Continue ASA 81 qd, Plavix 75 qd with GI protection and caution given anemia , anticoagulation decision per primary team 4. Completed empiric antibiotics per ID, O2 to keep SpO2 >90%, inhaled bronchodilators as needed, DVT prophylaxis 5. Amiodarone 200 bid, wean stress-dosed steroids
--- NOTE | 2019-10-22 11:54 | PN ---
Progress Note, Physician History of Present Illness: stable no new issues - Current Medication List Current Medications: Active Medications Acetaminophen (Tylenol -) 650 mg PO Q6H PRN PRN Reason: FEVER Albuterol/Ipratropium (Duoneb -) 1 amp NEB Q4H PRN PRN Reason: SHORTNESS OF BREATH Allopurinol (Zyloprim -) 100 mg PO DAILY [facility] Last Admin: 10/22/19 09:25 Dose: 100 mg Amiodarone HCl (Cordarone -) 200 mg PO BID [facility] Last Admin: 10/22/19 09:26 Dose: 200 mg Aspirin (Ecotrin -) 81 mg PO DAILY [facility] Last Admin: 10/22/19 09:26 Dose: 81 mg Atorvastatin Calcium (Lipitor -) 80 mg PO HS [facility] Last Admin: 10/21/19 22:23 Dose: 80 mg Clopidogrel Bisulfate (Plavix -) 75 mg PO DAILY [facility] Last Admin: 10/22/19 09:26 Dose: 75 mg Escitalopram Oxalate (Lexapro -) 10 mg PO DAILY [facility] Last Admin: 10/22/19 09:26 Dose: 10 mg Hydrocortisone Sodium Succinate (Solu-Cortef -) 50 mg IVPB Q8H-IV [facility] Last Admin: 10/22/19 09:28 Dose: 50 mg Levothyroxine Sodium (Synthroid -) 75 mcg PO DAILY@0700 [facility] Last Admin: 10/22/19 06:07 Dose: 75 mcg Midodrine (Proamatine -) 10 mg PO TID-MID [facility] Last Admin: 10/22/19 09:27 Dose: 10 mg Pantoprazole Sodium (Protonix -) 40 mg PO DAILY [facility] Last Admin: 10/22/19 09:25 Dose: 40 mg Silver Sulfadiazine (Silvadene -) 1 applic TP DAILY [facility] Last Admin: 10/22/19 09:37 Dose: 1 applic Valacyclovir HCl (Valtrex -) 500 mg PO DAILY [facility] Last Admin: 10/22/19 09:28 Dose: 500 mg - Objective Vital Signs: Vital Signs Temperature 98.1 F 10/22/19 08:32 Pulse Rate 82 10/22/19 08:24 Respiratory Rate 26 H 10/22/19 08:24 Blood Pressure 100/61 10/22/19 08:24 O2 Sat by Pulse Oximetry (%) 100 10/22/19 10:36 Constitutional: Yes: No Distress, Calm Cardiovascular: Yes: S1, S2 Respiratory: Yes: Regular, CTA Bilaterally Gastrointestinal: Yes: Normal Bowel Sounds, Soft Musculoskeletal: Yes: WNL Extremities: Yes: WNL Edema: LLE: 1+, RLE: 1+ Neurological: Yes: Alert, Oriented Psychiatric: Yes: Alert, Oriented Labs: CBC, BMP 10/22/19 05:50 10/21/19 10:55 INR, PTT INR 0.99 (0.83-1.09) 10/07/19 02:55 Assessment/Plan Problem List - Problems (1) Depression Code(s): F32.9 - MAJOR DEPRESSIVE DISORDER, SINGLE EPISODE, UNSPECIFIED (2) ASHD (arteriosclerotic heart disease) Code(s): I25.10 - ATHSCL HEART DISEASE OF [place] CORONARY ARTERY W/O ANG PCTRS (3) Acute on chronic renal failure Code(s): N17.9 - ACUTE KIDNEY FAILURE, UNSPECIFIED; N18.9 - CHRONIC KIDNEY DISEASE, UNSPECIFIED Qualifiers: Chronic kidney disease stage: stage 2 (mild) (4) Acute on chronic systolic CHF (congestive heart failure) Code(s): I50.23 - ACUTE ON CHRONIC SYSTOLIC (CONGESTIVE) HEART FAILURE (5) Anemia Code(s): D64.9 - ANEMIA, UNSPECIFIED Qualifiers: Chronic kidney disease stage: unspecified stage (6) CAD (coronary artery disease) Code(s): I25.10 - ATHSCL HEART DISEASE OF [place] CORONARY ARTERY W/O ANG PCTRS Qualifiers: (7) CHF (congestive heart failure) Code(s): I50.9 - HEART FAILURE, UNSPECIFIED Qualifiers: Heart failure type: systolic Heart failure chronicity: unspecified Qualified Code(s): I50.20 - Unspecified systolic (congestive) heart failure (8) Hypothyroidism Code(s): E03.9 - HYPOTHYROIDISM, UNSPECIFIED Qualifiers: Hypothyroidism type: acquired Qualified Code(s): E03.9 - Hypothyroidism, unspecified (9) Multiple myeloma Code(s): C90.00 - MULTIPLE MYELOMA NOT HAVING ACHIEVED REMISSION Qualifiers: Multiple myeloma remission status: not in remission Qualified Code(s): C90.00 - Multiple myeloma not having achieved remission Assessment/Plan UTI Acute on Chronic HF Cardiogenic Shock DEBBIE on CKD Multiple Myeloma Amyloid CAD Anemia Hypothyroidism Asthma Depression plan continue current mgmt rest as per the team cr normalized watch
--- NOTE | 2019-10-22 12:06 | PN ---
Progress Note (short form) - Note Progress Note: PULMONARY Breathing better. No chest pain. +nonproductive cough. Vital Signs Period Temp Pulse Resp BP Sys/Moss Pulse Ox Last 24 Hr 97.4 F-98.1 F 72-82 18- 93-106/50-62 96-100 Intake & Output 10/19/19 10/20/19 10/21/19 10/22/19 23:59 23:59 23:59 23:59 Intake Total 964 450 775 30 Output Total 3070 50 3300 Balance -2106 400 -2525 30 Weight 72.291 kg 72.263 kg 72.631 kg 71.016 kg Gen: NAD at rest Heart: RRR Lung: decreased breath sounds at the bases Abd: soft, nontender Ext: + edema CBC, BMP 10/22/19 05:50 10/21/19 10:55 Active Medications Acetaminophen (Tylenol -) 650 mg PO Q6H PRN PRN Reason: FEVER Albuterol/Ipratropium (Duoneb -) 1 amp NEB Q4H PRN PRN Reason: SHORTNESS OF BREATH Allopurinol (Zyloprim -) 100 mg PO DAILY [facility] Last Admin: 10/22/19 09:25 Dose: 100 mg Amiodarone HCl (Cordarone -) 200 mg PO BID [facility] Last Admin: 10/22/19 09:26 Dose: 200 mg Aspirin (Ecotrin -) 81 mg PO DAILY [facility] Last Admin: 10/22/19 09:26 Dose: 81 mg Atorvastatin Calcium (Lipitor -) 80 mg PO HS [facility] Last Admin: 10/21/19 22:23 Dose: 80 mg Clopidogrel Bisulfate (Plavix -) 75 mg PO DAILY [facility] Last Admin: 10/22/19 09:26 Dose: 75 mg Escitalopram Oxalate (Lexapro -) 10 mg PO DAILY [facility] Last Admin: 10/22/19 09:26 Dose: 10 mg Hydrocortisone Sodium Succinate (Solu-Cortef -) 50 mg IVPB Q8H-IV [facility] Last Admin: 10/22/19 09:28 Dose: 50 mg Levothyroxine Sodium (Synthroid -) 75 mcg PO DAILY@0700 [facility] Last Admin: 10/22/19 06:07 Dose: 75 mcg Midodrine (Proamatine -) 10 mg PO TID-MID [facility] Last Admin: 10/22/19 09:27 Dose: 10 mg Pantoprazole Sodium (Protonix -) 40 mg PO DAILY [facility] Last Admin: 10/22/19 09:25 Dose: 40 mg Silver Sulfadiazine (Silvadene -) 1 applic TP DAILY [facility] Last Admin: 10/22/19 09:37 Dose: 1 applic Valacyclovir HCl (Valtrex -) 500 mg PO DAILY [facility] Last Admin: 10/22/19 09:28 Dose: 500 mg A/P Acute on Chronic Systolic Heart Failure Cardiogenic Shock Acute on Chronic Renal Failure CAD Acute NSTEMI Paroxysmal Atrial Fibrillation Pneumonia Asthma Multiple Myeloma HTN Hyperlipidemia Hypothyroidism Anemia Hyponatremia - HD per renal - monitor urine output, creatinine - daily weights - amiodarone - monitor H/H - completed antibiotics - O2 to keep SpO2 >90% - inhaled bronchodilators as needed - BiPAP to assist in work of breathing - taper hydrocortisone - DVT prophylaxis - poor overall prognosis, continue discussions regarding goals of care
[2019-10-22] MEDS ORDERED: FUROSEMIDE 40 MG/4 ML INJECTABLE VIAL IVPUSH ONE (14:39)
--- NOTE | 2019-10-22 17:47 | PN ---
Progress Note (short form) - Note Progress Note: 1. proteinuria 2. multiple myeloma 3. amyloid 4. dizziness 5. hypotension 6. HLD 7. hypothyroidism 8. anemia 9. CKD 10. fluid overload 11. hypotension 12. hyperkalemia 13. nstemi 14. DEBBIE Current Medications Acetaminophen (Tylenol -) 650 mg PO Q6H PRN PRN Reason: FEVER Albuterol/Ipratropium (Duoneb -) 1 amp NEB Q4H PRN PRN Reason: SHORTNESS OF BREATH Allopurinol (Zyloprim -) 100 mg PO DAILY [facility] Last Admin: 10/22/19 09:25 Dose: 100 mg Amiodarone HCl (Cordarone -) 200 mg PO BID [facility] Last Admin: 10/22/19 09:26 Dose: 200 mg Aspirin (Ecotrin -) 81 mg PO DAILY [facility] Last Admin: 10/22/19 09:26 Dose: 81 mg Atorvastatin Calcium (Lipitor -) 80 mg PO HS [facility] Last Admin: 10/21/19 22:23 Dose: 80 mg Clopidogrel Bisulfate (Plavix -) 75 mg PO DAILY [facility] Last Admin: 10/22/19 09:26 Dose: 75 mg Escitalopram Oxalate (Lexapro -) 10 mg PO DAILY [facility] Last Admin: 10/22/19 09:26 Dose: 10 mg Hydrocortisone Sodium Succinate (Solu-Cortef -) 50 mg IVPB Q8H-IV [facility] Last Admin: 10/22/19 17:15 Dose: 50 mg Levothyroxine Sodium (Synthroid -) 75 mcg PO DAILY@0700 [facility] Last Admin: 10/22/19 06:07 Dose: 75 mcg Midodrine (Proamatine -) 10 mg PO TID-MID [facility] Last Admin: 10/22/19 17:15 Dose: 10 mg Pantoprazole Sodium (Protonix -) 40 mg PO DAILY [facility] Last Admin: 10/22/19 09:25 Dose: 40 mg Silver Sulfadiazine (Silvadene -) 1 applic TP DAILY [facility] Last Admin: 10/22/19 09:37 Dose: 1 applic Valacyclovir HCl (Valtrex -) 500 mg PO DAILY [facility] Last Admin: 10/22/19 09:28 Dose: 500 mg Last Vital Signs Temp Pulse Resp BP Pulse Ox 98.0 F 80 26 H 105/66 98 10/22/19 14:00 10/22/19 14:10 10/22/19 14:10 10/22/19 14:10 10/22/19 16:27 alert in nad seems to work to breathe Lungs tony Heart reg Abd soft nontender Ext mild edema CBC, BMP 10/22/19 05:50 10/21/19 10:55 IMP- DEBBIE ESRD sob Plan- Stat Lasix 40 mg iv today for sob f/u in am plan for HD on Thursday
--- NOTE | 2019-10-22 22:12 | PN ---
Progress Note, Physician - Current Medication List Current Medications: Active Medications Acetaminophen (Tylenol -) 650 mg PO Q6H PRN PRN Reason: FEVER Albuterol/Ipratropium (Duoneb -) 1 amp NEB Q4H PRN PRN Reason: SHORTNESS OF BREATH Allopurinol (Zyloprim -) 100 mg PO DAILY [facility] Last Admin: 10/22/19 09:25 Dose: 100 mg Amiodarone HCl (Cordarone -) 200 mg PO BID [facility] Last Admin: 10/22/19 09:26 Dose: 200 mg Aspirin (Ecotrin -) 81 mg PO DAILY [facility] Last Admin: 10/22/19 09:26 Dose: 81 mg Atorvastatin Calcium (Lipitor -) 80 mg PO HS [facility] Last Admin: 10/21/19 22:23 Dose: 80 mg Clopidogrel Bisulfate (Plavix -) 75 mg PO DAILY [facility] Last Admin: 10/22/19 09:26 Dose: 75 mg Escitalopram Oxalate (Lexapro -) 10 mg PO DAILY [facility] Last Admin: 10/22/19 09:26 Dose: 10 mg Hydrocortisone Sodium Succinate (Solu-Cortef -) 50 mg IVPB Q8H-IV [facility] Last Admin: 10/22/19 17:15 Dose: 50 mg Levothyroxine Sodium (Synthroid -) 75 mcg PO DAILY@0700 [facility] Last Admin: 10/22/19 06:07 Dose: 75 mcg Midodrine (Proamatine -) 10 mg PO TID-MID [facility] Last Admin: 10/22/19 17:15 Dose: 10 mg Pantoprazole Sodium (Protonix -) 40 mg PO DAILY [facility] Last Admin: 10/22/19 09:25 Dose: 40 mg Silver Sulfadiazine (Silvadene -) 1 applic TP DAILY [facility] Last Admin: 10/22/19 09:37 Dose: 1 applic Valacyclovir HCl (Valtrex -) 500 mg PO DAILY [facility] Last Admin: 10/22/19 09:28 Dose: 500 mg - Objective Vital Signs: Vital Signs Temperature 98.0 F 10/22/19 14:00 Pulse Rate 88 10/22/19 17:52 Respiratory Rate 26 H 10/22/19 17:52 Blood Pressure 102/66 10/22/19 17:52 O2 Sat by Pulse Oximetry (%) 99 10/22/19 20:30 Labs: CBC, BMP 10/22/19 05:50 10/21/19 10:55 INR, PTT INR 0.99 (0.83-1.09) 10/07/19 02:55 Problem List - Problems (1) Acute on chronic renal failure Code(s): N17.9 - ACUTE KIDNEY FAILURE, UNSPECIFIED; N18.9 - CHRONIC KIDNEY DISEASE, UNSPECIFIED (2) Acute on chronic systolic CHF (congestive heart failure) Code(s): I50.23 - ACUTE ON CHRONIC SYSTOLIC (CONGESTIVE) HEART FAILURE (3) Multiple myeloma Code(s): C90.00 - MULTIPLE MYELOMA NOT HAVING ACHIEVED REMISSION Qualifiers: Multiple myeloma remission status: not in remission Qualified Code(s): C90.00 - Multiple myeloma not having achieved remission (4) HLD (hyperlipidemia) Code(s): E78.5 - HYPERLIPIDEMIA, UNSPECIFIED Qualifiers: Hyperlipidemia type: unspecified Qualified Code(s): E78.5 - Hyperlipidemia , unspecified (5) Hypothyroidism Code(s): E03.9 - HYPOTHYROIDISM, UNSPECIFIED Qualifiers: Hypothyroidism type: acquired Qualified Code(s): E03.9 - Hypothyroidism, unspecified (6) CAD (coronary artery disease) Code(s): I25.10 - ATHSCL HEART DISEASE OF [place] CORONARY ARTERY W/O ANG PCTRS Qualifiers: (7) Depression Code(s): F32.9 - MAJOR DEPRESSIVE DISORDER, SINGLE EPISODE, UNSPECIFIED (8) History of heart artery stent Code(s): Z95.5 - PRESENCE OF CORONARY ANGIOPLASTY IMPLANT AND GRAFT (9) Diarrhea Code(s): R19.7 - DIARRHEA, UNSPECIFIED Qualifiers: Diarrhea type: unspecified type Qualified Code(s): R19.7 - Diarrhea, unspecified (10) UTI (urinary tract infection) Code(s): N39.0 - URINARY TRACT INFECTION, SITE NOT SPECIFIED (11) Elevated troponin Code(s): R74.8 - ABNORMAL LEVELS OF OTHER SERUM ENZYMES
[2019-10-22] MEDS: ATORVASTATIN CA 80 MG TABLET (FP) PO SCH (22:14)
[2019-10-23] MEDS ORDERED: MELATONIN 5 MG TABLETS PO SCH (01:30)
[2019-10-23] MEDS: HYDROCORTISONE SOD SUCCINATE 100 MG/2 ML VIAL IVPB SCH ×3 (01:54→17:55)
[2019-10-23] MEDS ORDERED: MELATONIN 5 MG TABLETS PO PRN (02:13)
[2019-10-23 07:36] LABS: HEMATOCRIT 28.9 % (32.4-45.2); HEMOGLOBIN 9.3 GM/dL (10.7-15.3); MCH 32.4 pg (25.7-33.7); MCHC 32.3 g/dl (32.0-36.0); MEAN CELL VOLUME 100.3 fl (80-96); MEAN PLT VOLUME 10.2 fl (7.5-11.1); PLATELET COUNT 90 K/MM3 (134-434); RBC 2.88 M/mm3 (3.60-5.2); RDW 20.6 % (11.6-15.6); WHITE BLOOD COUNT 9.2 K/mm3 (4.0-10.0)
[2019-10-23] MEDS: LEVOTHYROXINE NA 75 MCG TABLET (FP) PO SCH (07:44)
[2019-10-23] MEDS ORDERED: PT OWN MED DRAWER 7, Y5N ONE (10:31)
[2019-10-23] MEDS: MIDODRINE HCL 5 MG TABLET PO SCH ×3 (10:50→17:54)
[2019-10-23] MEDS: valACYclovir HCL 500 MG TABLET (FP) PO SCH (10:50)
[2019-10-23] MEDS: PANTOPRAZOLE 40 MG TABLET (FP) PO SCH (10:51)
[2019-10-23] MEDS: ALLOPURINOL 100 MG TABLET (FP) PO SCH (10:51)
[2019-10-23] MEDS: CLOPIDOGREL BISULFATE 75 MG TABLET (FP) PO SCH (10:51)
[2019-10-23] MEDS: AMIODARONE HCL 200 MG TABLET (FP) PO SCH ×2 (10:51→21:48)
[2019-10-23] MEDS: ASPIRIN COATED 81 MG TABLET.EC PO SCH (10:54)
[2019-10-23] MEDS: SILVER SULFADIAZINE 1% TOP CREAM 50 GM JAR TP SCH (10:54)
[2019-10-23] MEDS: ESCITALOPRAM OXALATE 10 MG TABLET (FP) PO SCH (10:54)
--- NOTE | 2019-10-23 12:23 | PN ---
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 Hemodynamics stable. No recurrent PAF. - Current Medication List Current Medications: Active Medications Acetaminophen (Tylenol -) 650 mg PO Q6H PRN PRN Reason: FEVER Albuterol/Ipratropium (Duoneb -) 1 amp NEB Q4H PRN PRN Reason: SHORTNESS OF BREATH Allopurinol (Zyloprim -) 100 mg PO DAILY [facility] Last Admin: 10/23/19 10:51 Dose: 100 mg Amiodarone HCl (Cordarone -) 200 mg PO BID [facility] Last Admin: 10/23/19 10:51 Dose: 200 mg Aspirin (Ecotrin -) 81 mg PO DAILY [facility] Last Admin: 10/23/19 10:54 Dose: 81 mg Atorvastatin Calcium (Lipitor -) 80 mg PO HS [facility] Last Admin: 10/22/19 22:14 Dose: 80 mg Clopidogrel Bisulfate (Plavix -) 75 mg PO DAILY [facility] Last Admin: 10/23/19 10:51 Dose: 75 mg Escitalopram Oxalate (Lexapro -) 10 mg PO DAILY [facility] Last Admin: 10/23/19 10:54 Dose: 10 mg Hydrocortisone Sodium Succinate (Solu-Cortef -) 50 mg IVPB Q8H-IV [facility] Last Admin: 10/23/19 10:49 Dose: 50 mg Levothyroxine Sodium (Synthroid -) 75 mcg PO DAILY@0700 [facility] Last Admin: 10/23/19 07:44 Dose: 75 mcg Melatonin (Melatonin) 10 mg PO HS PRN PRN Reason: INSOMNIA Midodrine (Proamatine -) 10 mg PO TID-MID [facility] Last Admin: 10/23/19 10:50 Dose: 10 mg Pantoprazole Sodium (Protonix -) 40 mg PO DAILY [facility] Last Admin: 10/23/19 10:51 Dose: 40 mg Silver Sulfadiazine (Silvadene -) 1 applic TP DAILY [facility] Last Admin: 10/23/19 10:54 Dose: 1 applic Valacyclovir HCl (Valtrex -) 500 mg PO DAILY [facility] Last Admin: 10/23/19 10:50 Dose: 500 mg - Objective Vital Signs: Vital Signs Temperature 97.9 F 10/22/19 20:00 Pulse Rate 82 10/23/19 04:00 Respiratory Rate 24 H 10/23/19 04:00 Blood Pressure 95/64 10/23/19 04:00 O2 Sat by Pulse Oximetry (%) 98 10/23/19 08:33 Constitutional: Yes: No Distress, Calm, Thin Neck: Yes: Supple Cardiovascular: Yes: Regular Rate and Rhythm Respiratory: Yes: Regular, Diminished, On Nasal O2 Gastrointestinal: Yes: Soft, Hypoactive Bowel Sounds Edema: No Labs: CBC, BMP 10/23/19 06:15 10/21/19 10:55 INR, PTT INR 0.99 (0.83-1.09) 10/07/19 02:55 - ....Imaging EKG: Report Reviewed (Tele: NSR) Assessment/Plan (1) Hypoxia Code(s): R09.02 - HYPOXEMIA (2) Weakness Code(s): R53.1 - WEAKNESS (3) ASHD (arteriosclerotic heart disease) Code(s): I25.10 - ATHSCL HEART DISEASE OF [place] CORONARY ARTERY W/O ANG PCTRS (4) Acute on chronic systolic CHF (congestive heart failure) Assessment/Plan: off losartan to raising K and bun/cr and hypotension F/u BUN/Cr, electrolytes, daily weight, Is and Os. ECHO: severely reduced LVEF; small pericardial effusion which is not hemodynamically significant; pleural effuson. Plan to re start carvedilol or metoprolol if BP and HR allow. Code(s): I50.23 - ACUTE ON CHRONIC SYSTOLIC (CONGESTIVE) HEART FAILURE (5) Adult onset hypothyroidism Assessment/Plan: elevated TSH; f/u Free T4. Code(s): E03.8 - OTHER SPECIFIED HYPOTHYROIDISM (6) Anxiety Code(s): F41.9 - ANXIETY DISORDER, UNSPECIFIED (7) Elevated troponin Code(s): R74.8 - ABNORMAL LEVELS OF OTHER SERUM ENZYMES (8) HLD (hyperlipidemia) Assessment/Plan: On statin. LDL elevated in March; f/u lipid profile. Code(s): E78.5 - HYPERLIPIDEMIA, UNSPECIFIED Qualifiers: Hyperlipidemia type: unspecified Qualified Code(s): E78.5 - Hyperlipidemia , unspecified (9) HTN (hypertension) Assessment/Plan: off losartan pending hemodynamic and renal fxn stabilization Would start beta savana if remains stable, even if BP is relatively low-normal , given severity of systolic dysfunction. 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 Acute on chronic class II NYHA classification LV systolic failure 2. CAD post NY/PCI/stent demand ischemia angina pectoris 3. HTN 4. Hyperlipidemia, not at goal 5. PNA, History of Asthma 6. Paroxysmal Atrial Fibrillation->SR 7. Oliguric acute on CKD on HD 8. Multiple Myeloma 9. Anemia 10. Hypothyroidism 11. Amyloid 12. Hyponatremia PLAN: 1. HD and Lasix on non HD days per renal with monitoring of renal function, urine output and electrolytes 2. Midodrine 10 tid, resume Coreg and Entresto once hemodyanamics stabilize 3. Continue ASA 81 qd, Plavix 75 qd with GI protection and caution given anemia , anticoagulation decision per primary team 4. Completed empiric antibiotics per ID, O2 to keep SpO2 >90%, inhaled bronchodilators as needed, DVT prophylaxis 5. Amiodarone 200 bid, wean stress-dosed steroids
[2019-10-23] MEDS ORDERED: FUROSEMIDE 40 MG/4 ML INJECTABLE VIAL IVPUSH ONE (12:26)
--- NOTE | 2019-10-23 13:38 | PN ---
Progress Note (short form) - Note Progress Note: PULMONARY More short of breath today. States she "just wants to go home. I'm tired of living." Vital Signs Period Temp Pulse Resp BP Sys/Moss Pulse Ox Last 24 Hr 97.6 F-98.0 F 73-88 19-28 95-105/59-66 97-100 Intake & Output 10/20/19 10/21/19 10/22/19 10/23/19 23:59 23:59 23:59 23:59 Intake Total 450 775 280 30 Output Total 50 3300 Balance 400 -2525 280 30 Weight 72.263 kg 72.631 kg 71.016 kg 68.084 kg Gen: NAD at rest Heart: RRR Lung: decreased breath sounds at the bases Abd: soft, nontender Ext: + edema CBC, BMP 10/23/19 06:15 10/21/19 10:55 Active Medications Acetaminophen (Tylenol -) 650 mg PO Q6H PRN PRN Reason: FEVER Albuterol/Ipratropium (Duoneb -) 1 amp NEB Q4H PRN PRN Reason: SHORTNESS OF BREATH Allopurinol (Zyloprim -) 100 mg PO DAILY [facility] Last Admin: 10/23/19 10:51 Dose: 100 mg Amiodarone HCl (Cordarone -) 200 mg PO BID [facility] Last Admin: 10/23/19 10:51 Dose: 200 mg Aspirin (Ecotrin -) 81 mg PO DAILY [facility] Last Admin: 10/23/19 10:54 Dose: 81 mg Atorvastatin Calcium (Lipitor -) 80 mg PO HS [facility] Last Admin: 10/22/19 22:14 Dose: 80 mg Clopidogrel Bisulfate (Plavix -) 75 mg PO DAILY [facility] Last Admin: 10/23/19 10:51 Dose: 75 mg Escitalopram Oxalate (Lexapro -) 10 mg PO DAILY [facility] Last Admin: 10/23/19 10:54 Dose: 10 mg Hydrocortisone Sodium Succinate (Solu-Cortef -) 50 mg IVPB Q8H-IV [facility] Last Admin: 10/23/19 10:49 Dose: 50 mg Levothyroxine Sodium (Synthroid -) 75 mcg PO DAILY@0700 [facility] Last Admin: 10/23/19 07:44 Dose: 75 mcg Melatonin (Melatonin) 10 mg PO HS PRN PRN Reason: INSOMNIA Midodrine (Proamatine -) 10 mg PO TID-MID [facility] Last Admin: 10/23/19 10:50 Dose: 10 mg Pantoprazole Sodium (Protonix -) 40 mg PO DAILY [facility] Last Admin: 10/23/19 10:51 Dose: 40 mg Silver Sulfadiazine (Silvadene -) 1 applic TP DAILY [facility] Last Admin: 10/23/19 10:54 Dose: 1 applic Valacyclovir HCl (Valtrex -) 500 mg PO DAILY [facility] Last Admin: 10/23/19 10:50 Dose: 500 mg A/P Acute on Chronic Systolic Heart Failure Cardiogenic Shock Acute on Chronic Renal Failure CAD Acute NSTEMI Paroxysmal Atrial Fibrillation Pneumonia Asthma Multiple Myeloma HTN Hyperlipidemia Hypothyroidism Anemia Hyponatremia - HD per renal - monitor urine output, creatinine - daily weights - amiodarone - monitor H/H - completed antibiotics - O2 to keep SpO2 >90% - inhaled bronchodilators as needed - BiPAP to assist in work of breathing - taper hydrocortisone - DVT prophylaxis - poor overall prognosis, continue discussions regarding goals of care - palliative care f/u
--- NOTE | 2019-10-23 16:33 | PN ---
Progress Note (short form) - Note Progress Note: 1. proteinuria 2. multiple myeloma 3. amyloid 4. dizziness 5. hypotension 6. HLD 7. hypothyroidism 8. anemia 9. CKD 10. fluid overload 11. hypotension 12. hyperkalemia 13. nstemi 14. DEBBIE Current Medications Acetaminophen (Tylenol -) 650 mg PO Q6H PRN PRN Reason: FEVER Albuterol/Ipratropium (Duoneb -) 1 amp NEB Q4H PRN PRN Reason: SHORTNESS OF BREATH Allopurinol (Zyloprim -) 100 mg PO DAILY [facility] Last Admin: 10/23/19 10:51 Dose: 100 mg Amiodarone HCl (Cordarone -) 200 mg PO BID [facility] Last Admin: 10/23/19 10:51 Dose: 200 mg Aspirin (Ecotrin -) 81 mg PO DAILY [facility] Last Admin: 10/23/19 10:54 Dose: 81 mg Atorvastatin Calcium (Lipitor -) 80 mg PO HS [facility] Last Admin: 10/22/19 22:14 Dose: 80 mg Clopidogrel Bisulfate (Plavix -) 75 mg PO DAILY [facility] Last Admin: 10/23/19 10:51 Dose: 75 mg Escitalopram Oxalate (Lexapro -) 10 mg PO DAILY [facility] Last Admin: 10/23/19 10:54 Dose: 10 mg Hydrocortisone Sodium Succinate (Solu-Cortef -) 50 mg IVPB Q8H-IV [facility] Last Admin: 10/23/19 10:49 Dose: 50 mg Levothyroxine Sodium (Synthroid -) 75 mcg PO DAILY@0700 [facility] Last Admin: 10/23/19 07:44 Dose: 75 mcg Melatonin (Melatonin) 10 mg PO HS PRN PRN Reason: INSOMNIA Midodrine (Proamatine -) 10 mg PO TID-MID [facility] Last Admin: 10/23/19 13:42 Dose: 10 mg Pantoprazole Sodium (Protonix -) 40 mg PO DAILY [facility] Last Admin: 10/23/19 10:51 Dose: 40 mg Silver Sulfadiazine (Silvadene -) 1 applic TP DAILY [facility] Last Admin: 10/23/19 10:54 Dose: 1 applic Valacyclovir HCl (Valtrex -) 500 mg PO DAILY [facility] Last Admin: 10/23/19 10:50 Dose: 500 mg Last Vital Signs Temp Pulse Resp BP Pulse Ox 98.0 F 87 24 H 104/61 97 10/23/19 14:00 10/23/19 14:00 10/23/19 14:00 10/23/19 14:00 10/23/19 14:01 alert in nad seems to work to breathe Lungs tony Heart reg Abd soft nontender Ext mild edema CBC, BMP 10/23/19 06:15 10/21/19 10:55 CBC, BMP 10/22/19 05:50 10/21/19 10:55 IMP- DEBBIE ESRD sob Plan- Stat Lasix 40 mg iv today for sob f/u in am plan for HD on Thursday
[2019-10-23 17:37] LABS: BILIRUBIN,TOTAL 0.9 mg/dL (0.2-1); BLOOD UREA NITROGEN 34.6 mg/dL (7-18); CALCIUM 8.2 mg/dL (8.5-10.1); CREATININE 2.8 mg/dL (0.55-1.3); POTASSIUM 4.7 mmol/L (3.5-5.1); TOT PROT 6.3 g/dl (6.4-8.2)
--- NOTE | 2019-10-23 20:08 | PN ---
Progress Note, Physician History of Present Illness: Pt is weak but responsive. on BIPAP. - Current Medication List Current Medications: Active Medications Acetaminophen (Tylenol -) 650 mg PO Q6H PRN PRN Reason: FEVER Albuterol/Ipratropium (Duoneb -) 1 amp NEB Q4H PRN PRN Reason: SHORTNESS OF BREATH Allopurinol (Zyloprim -) 100 mg PO DAILY [facility] Last Admin: 10/23/19 10:51 Dose: 100 mg Amiodarone HCl (Cordarone -) 200 mg PO BID [facility] Last Admin: 10/23/19 10:51 Dose: 200 mg Aspirin (Ecotrin -) 81 mg PO DAILY [facility] Last Admin: 10/23/19 10:54 Dose: 81 mg Atorvastatin Calcium (Lipitor -) 80 mg PO HS [facility] Last Admin: 10/22/19 22:14 Dose: 80 mg Clopidogrel Bisulfate (Plavix -) 75 mg PO DAILY [facility] Last Admin: 10/23/19 10:51 Dose: 75 mg Escitalopram Oxalate (Lexapro -) 10 mg PO DAILY [facility] Last Admin: 10/23/19 10:54 Dose: 10 mg Hydrocortisone Sodium Succinate (Solu-Cortef -) 50 mg IVPB Q8H-IV [facility] Last Admin: 10/23/19 17:55 Dose: 50 mg Levothyroxine Sodium (Synthroid -) 75 mcg PO DAILY@0700 [facility] Last Admin: 10/23/19 07:44 Dose: 75 mcg Melatonin (Melatonin) 10 mg PO HS PRN PRN Reason: INSOMNIA Midodrine (Proamatine -) 10 mg PO TID-MID [facility] Last Admin: 10/23/19 17:54 Dose: 10 mg Pantoprazole Sodium (Protonix -) 40 mg PO DAILY [facility] Last Admin: 10/23/19 10:51 Dose: 40 mg Silver Sulfadiazine (Silvadene -) 1 applic TP DAILY [facility] Last Admin: 10/23/19 10:54 Dose: 1 applic Valacyclovir HCl (Valtrex -) 500 mg PO DAILY [facility] Last Admin: 10/23/19 10:50 Dose: 500 mg - Objective Vital Signs: Vital Signs Temperature 98.0 F 10/23/19 14:00 Pulse Rate 80 10/23/19 17:51 Respiratory Rate 21 H 10/23/19 17:51 Blood Pressure 102/61 10/23/19 17:51 O2 Sat by Pulse Oximetry (%) 100 10/23/19 17:31 Constitutional: Yes: Mild Distress Eyes: Yes: Conjunctiva Clear Cardiovascular: Yes: Tachycardia Respiratory: Yes: Diminished, On BiPap Gastrointestinal: Yes: Normal Bowel Sounds, Soft Musculoskeletal: Yes: WNL Extremities: Yes: WNL Integumentary: Yes: WNL Neurological: Yes: Alert Labs: CBC, BMP 10/23/19 06:15 10/23/19 16:52 INR, PTT INR 0.99 (0.83-1.09) 10/07/19 02:55 Microbiology 09/20/19 04:16 Blood - Peripheral Venous Blood Culture - Final NO GROWTH AFTER 5 DAYS INCUBATION 09/20/19 06:26 Urine - Urine Clean Catch Urine Culture - Final Strep Agalactiae Group B Problem List - Problems (1) Depression Code(s): F32.9 - MAJOR DEPRESSIVE DISORDER, SINGLE EPISODE, UNSPECIFIED (2) ASHD (arteriosclerotic heart disease) Code(s): I25.10 - ATHSCL HEART DISEASE OF [place] CORONARY ARTERY W/O ANG PCTRS (3) Acute on chronic renal failure Code(s): N17.9 - ACUTE KIDNEY FAILURE, UNSPECIFIED; N18.9 - CHRONIC KIDNEY DISEASE, UNSPECIFIED Qualifiers: Chronic kidney disease stage: stage 2 (mild) (4) Acute on chronic systolic CHF (congestive heart failure) Code(s): I50.23 - ACUTE ON CHRONIC SYSTOLIC (CONGESTIVE) HEART FAILURE (5) Anemia Code(s): D64.9 - ANEMIA, UNSPECIFIED Qualifiers: Chronic kidney disease stage: unspecified stage (6) CAD (coronary artery disease) Code(s): I25.10 - ATHSCL HEART DISEASE OF [place] CORONARY ARTERY W/O ANG PCTRS Qualifiers: (7) CHF (congestive heart failure) Code(s): I50.9 - HEART FAILURE, UNSPECIFIED Qualifiers: Heart failure type: systolic Heart failure chronicity: unspecified Qualified Code(s): I50.20 - Unspecified systolic (congestive) heart failure (8) Hypothyroidism Code(s): E03.9 - HYPOTHYROIDISM, UNSPECIFIED Qualifiers: Hypothyroidism type: acquired Qualified Code(s): E03.9 - Hypothyroidism, unspecified (9) Multiple myeloma Code(s): C90.00 - MULTIPLE MYELOMA NOT HAVING ACHIEVED REMISSION Qualifiers: Multiple myeloma remission status: not in remission Qualified Code(s): C90.00 - Multiple myeloma not having achieved remission Assessment/Plan UTI - s/p course of antibiotics Acute on Chronic HF Cardiogenic Shock DEBBIE on CKD Multiple Myeloma Amyloid CAD Anemia Hypothyroidism Asthma Depression -- Pt clinically the same, on BIPAP -- afebrile, wbc normal -- continue monitor off antibiotics -- supportive care cc: 35 min
--- NOTE | 2019-10-23 21:29 | PN ---
Progress Note, Physician History of Present Illness: Pt on BIPAP - Current Medication List Current Medications: Active Medications Acetaminophen (Tylenol -) 650 mg PO Q6H PRN PRN Reason: FEVER Albuterol/Ipratropium (Duoneb -) 1 amp NEB Q4H PRN PRN Reason: SHORTNESS OF BREATH Allopurinol (Zyloprim -) 100 mg PO DAILY [facility] Last Admin: 10/23/19 10:51 Dose: 100 mg Amiodarone HCl (Cordarone -) 200 mg PO BID [facility] Last Admin: 10/23/19 10:51 Dose: 200 mg Aspirin (Ecotrin -) 81 mg PO DAILY [facility] Last Admin: 10/23/19 10:54 Dose: 81 mg Atorvastatin Calcium (Lipitor -) 80 mg PO HS [facility] Last Admin: 10/22/19 22:14 Dose: 80 mg Clopidogrel Bisulfate (Plavix -) 75 mg PO DAILY [facility] Last Admin: 10/23/19 10:51 Dose: 75 mg Escitalopram Oxalate (Lexapro -) 10 mg PO DAILY [facility] Last Admin: 10/23/19 10:54 Dose: 10 mg Hydrocortisone Sodium Succinate (Solu-Cortef -) 50 mg IVPB Q8H-IV [facility] Last Admin: 10/23/19 17:55 Dose: 50 mg Levothyroxine Sodium (Synthroid -) 75 mcg PO DAILY@0700 [facility] Last Admin: 10/23/19 07:44 Dose: 75 mcg Melatonin (Melatonin) 10 mg PO HS PRN PRN Reason: INSOMNIA Midodrine (Proamatine -) 10 mg PO TID-MID [facility] Last Admin: 10/23/19 17:54 Dose: 10 mg Pantoprazole Sodium (Protonix -) 40 mg PO DAILY [facility] Last Admin: 10/23/19 10:51 Dose: 40 mg Silver Sulfadiazine (Silvadene -) 1 applic TP DAILY [facility] Last Admin: 10/23/19 10:54 Dose: 1 applic Valacyclovir HCl (Valtrex -) 500 mg PO DAILY [facility] Last Admin: 10/23/19 10:50 Dose: 500 mg - Objective Vital Signs: Vital Signs Temperature 98.0 F 10/23/19 14:00 Pulse Rate 80 10/23/19 17:51 Respiratory Rate 21 H 10/23/19 17:51 Blood Pressure 102/61 10/23/19 17:51 O2 Sat by Pulse Oximetry (%) 97 10/23/19 20:59 Neck: Yes: WNL, Supple Cardiovascular: Yes: WNL, Regular Rate and Rhythm Respiratory: Yes: Diminished Gastrointestinal: Yes: WNL, Normal Bowel Sounds, Soft Edema: No Labs: CBC, BMP 10/23/19 06:15 10/23/19 16:52 INR, PTT INR 0.99 (0.83-1.09) 10/07/19 02:55 Problem List - Problems (1) Hypotension Assessment/Plan: Cont midodrine Taper IV hydrocortisone Code(s): I95.9 - HYPOTENSION, UNSPECIFIED (2) Acute on chronic renal failure Assessment/Plan: Possible dialysis in am as per renal Cont IV lasix prn Monitor creatinine/bun/electrolytes Code(s): N17.9 - ACUTE KIDNEY FAILURE, UNSPECIFIED; N18.9 - CHRONIC KIDNEY DISEASE, UNSPECIFIED (3) Acute on chronic systolic CHF (congestive heart failure) Assessment/Plan: Pt on lasix prn Monitor electrolytes Will need to restart entresto once BP more stable Code(s): I50.23 - ACUTE ON CHRONIC SYSTOLIC (CONGESTIVE) HEART FAILURE (4) Multiple myeloma Assessment/Plan: Pt had been receiving chemotx/RT As per onco Code(s): C90.00 - MULTIPLE MYELOMA NOT HAVING ACHIEVED REMISSION Qualifiers: Multiple myeloma remission status: not in remission Qualified Code(s): C90.00 - Multiple myeloma not having achieved remission (5) HLD (hyperlipidemia) Assessment/Plan: DC lipitor due to increasing LFT's Code(s): E78.5 - HYPERLIPIDEMIA, UNSPECIFIED Qualifiers: Hyperlipidemia type: unspecified Qualified Code(s): E78.5 - Hyperlipidemia , unspecified (6) Hypothyroidism Assessment/Plan: Cont levothyroxine Code(s): E03.9 - HYPOTHYROIDISM, UNSPECIFIED Qualifiers: Hypothyroidism type: acquired Qualified Code(s): E03.9 - Hypothyroidism, unspecified (7) CAD (coronary artery disease) Code(s): I25.10 - ATHSCL HEART DISEASE OF [place] CORONARY ARTERY W/O ANG PCTRS Qualifiers: (8) Depression Assessment/Plan: Increase dose of lexapro Code(s): F32.9 - MAJOR DEPRESSIVE DISORDER, SINGLE EPISODE, UNSPECIFIED (9) History of heart artery stent Code(s): Z95.5 - PRESENCE OF CORONARY ANGIOPLASTY IMPLANT AND GRAFT (10) Diarrhea Assessment/Plan: Now resolved Cause of dehydration/hypotension Code(s): R19.7 - DIARRHEA, UNSPECIFIED Qualifiers: Diarrhea type: unspecified type Qualified Code(s): R19.7 - Diarrhea, unspecified (11) UTI (urinary tract infection) Assessment/Plan: Due to strept agalactiae Now resolved Treated w/ IV meropenem Code(s): N39.0 - URINARY TRACT INFECTION, SITE NOT SPECIFIED (12) Elevated troponin Assessment/Plan: Troponin increased to 26 however it is now decreasing Cont to monitor Cont IV heparin/amiodarone Code(s): R74.8 - ABNORMAL LEVELS OF OTHER SERUM ENZYMES
[2019-10-23] MEDS: ATORVASTATIN CA 80 MG TABLET (FP) PO SCH (21:48)
[2019-10-24] MEDS: LEVOTHYROXINE NA 75 MCG TABLET (FP) PO SCH (06:15)
[2019-10-24 06:45] LABS: HEMATOCRIT 31.2 % (32.4-45.2); HEMOGLOBIN 10.1 GM/dL (10.7-15.3); MCH 32.4 pg (25.7-33.7); MCHC 32.3 g/dl (32.0-36.0); MEAN CELL VOLUME 100.4 fl (80-96); MEAN PLT VOLUME 10.6 fl (7.5-11.1); PLATELET COUNT 71 K/MM3 (134-434); RBC 3.11 M/mm3 (3.60-5.2); WHITE BLOOD COUNT 9.3 K/mm3 (4.0-10.0)
[2019-10-24] MEDS: predniSONE 20 MG TABLET (UD) PO SCH (09:56)
[2019-10-24] MEDS: ALLOPURINOL 100 MG TABLET (FP) PO SCH (09:57)
[2019-10-24] MEDS: ESCITALOPRAM OXALATE 20 MG TABLET (FP) PO SCH (09:57)
[2019-10-24] MEDS: valACYclovir HCL 500 MG TABLET (FP) PO SCH (09:57)
[2019-10-24] MEDS: PANTOPRAZOLE 40 MG TABLET (FP) PO SCH (09:57)
[2019-10-24] MEDS: MIDODRINE HCL 5 MG TABLET PO SCH ×3 (09:57→17:36)
[2019-10-24] MEDS: AMIODARONE HCL 200 MG TABLET (FP) PO SCH ×3 (09:57→23:49)
[2019-10-24] MEDS: SILVER SULFADIAZINE 1% TOP CREAM 50 GM JAR TP SCH (10:35)
[2019-10-24] MEDS: ASPIRIN COATED 81 MG TABLET.EC PO SCH (10:35)
--- NOTE | 2019-10-24 11:52 | PN ---
Progress Note (short form) - Note Progress Note: PULMONARY Remains on BiPAP. Vital Signs Period Temp Pulse Resp BP Sys/Moss Pulse Ox Last 24 Hr 98.0 F-98.3 F 72-93 13-24 97-105/58-66 97-100 Gen: NAD at rest Heart: RRR Lung: decreased breath sounds at the bases Abd: soft, nontender Ext: + edema CBC, BMP 10/24/19 06:11 10/23/19 16:52 Active Medications Acetaminophen (Tylenol -) 650 mg PO Q6H PRN PRN Reason: FEVER Albuterol/Ipratropium (Duoneb -) 1 amp NEB Q4H PRN PRN Reason: SHORTNESS OF BREATH Allopurinol (Zyloprim -) 100 mg PO DAILY [facility] Last Admin: 10/24/19 09:57 Dose: 100 mg Amiodarone HCl (Cordarone -) 200 mg PO BID [facility] Last Admin: 10/24/19 09:57 Dose: 200 mg Aspirin (Ecotrin -) 81 mg PO DAILY [facility] Last Admin: 10/24/19 10:35 Dose: 81 mg Atorvastatin Calcium (Lipitor -) 80 mg PO HS [facility] Last Admin: 10/23/19 21:48 Dose: 80 mg Clopidogrel Bisulfate (Plavix -) 75 mg PO DAILY [facility] Last Admin: 10/23/19 10:51 Dose: 75 mg Escitalopram Oxalate (Lexapro -) 20 mg PO DAILY [facility] Last Admin: 10/24/19 09:57 Dose: 20 mg Levothyroxine Sodium (Synthroid -) 75 mcg PO DAILY@0700 [facility] Last Admin: 10/24/19 06:15 Dose: 75 mcg Melatonin (Melatonin) 10 mg PO HS PRN PRN Reason: INSOMNIA Last Admin: 10/23/19 22:13 Dose: 10 mg Midodrine (Proamatine -) 10 mg PO TID-MID [facility] Last Admin: 10/24/19 09:57 Dose: 10 mg Pantoprazole Sodium (Protonix -) 40 mg PO DAILY [facility] Last Admin: 10/24/19 09:57 Dose: 40 mg Prednisone (Deltasone -) 20 mg PO DAILY [facility] Last Admin: 10/24/19 09:56 Dose: 20 mg Silver Sulfadiazine (Silvadene -) 1 applic TP DAILY [facility] Last Admin: 10/24/19 10:35 Dose: 1 applic Valacyclovir HCl (Valtrex -) 500 mg PO DAILY [facility] Last Admin: 10/24/19 09:57 Dose: 500 mg A/P Acute on Chronic Systolic Heart Failure Cardiogenic Shock resolving Acute on Chronic Renal Failure requiring HD CAD Acute NSTEMI Paroxysmal Atrial Fibrillation Pneumonia Asthma Multiple Myeloma HTN Hyperlipidemia Hypothyroidism Anemia Hyponatremia - HD per renal - monitor urine output, creatinine - daily weights - amiodarone - monitor H/H - completed antibiotics - O2 to keep SpO2 >90% - inhaled bronchodilators as needed - BiPAP to assist in work of breathing - taper hydrocortisone - DVT prophylaxis - poor overall prognosis, continue discussions regarding goals of care - palliative care f/u
--- NOTE | 2019-10-24 12:42 | PN ---
Progress Note, Physician History of Present Illness: Pt seen and examined at bedside. She appears fatigued. She is on bipap. - Current Medication List Current Medications: Active Medications Acetaminophen (Tylenol -) 650 mg PO Q6H PRN PRN Reason: FEVER Albuterol/Ipratropium (Duoneb -) 1 amp NEB Q4H PRN PRN Reason: SHORTNESS OF BREATH Allopurinol (Zyloprim -) 100 mg PO DAILY [facility] Last Admin: 10/24/19 09:57 Dose: 100 mg Amiodarone HCl (Cordarone -) 200 mg PO BID [facility] Last Admin: 10/24/19 09:57 Dose: 200 mg Aspirin (Ecotrin -) 81 mg PO DAILY [facility] Last Admin: 10/24/19 10:35 Dose: 81 mg Atorvastatin Calcium (Lipitor -) 80 mg PO HS [facility] Last Admin: 10/23/19 21:48 Dose: 80 mg Clopidogrel Bisulfate (Plavix -) 75 mg PO DAILY [facility] Last Admin: 10/23/19 10:51 Dose: 75 mg Escitalopram Oxalate (Lexapro -) 20 mg PO DAILY [facility] Last Admin: 10/24/19 09:57 Dose: 20 mg Levothyroxine Sodium (Synthroid -) 75 mcg PO DAILY@0700 [facility] Last Admin: 10/24/19 06:15 Dose: 75 mcg Melatonin (Melatonin) 10 mg PO HS PRN PRN Reason: INSOMNIA Last Admin: 10/23/19 22:13 Dose: 10 mg Midodrine (Proamatine -) 10 mg PO TID-MID [facility] Last Admin: 10/24/19 09:57 Dose: 10 mg Pantoprazole Sodium (Protonix -) 40 mg PO DAILY [facility] Last Admin: 10/24/19 09:57 Dose: 40 mg Prednisone (Deltasone -) 20 mg PO DAILY [facility] Last Admin: 10/24/19 09:56 Dose: 20 mg Silver Sulfadiazine (Silvadene -) 1 applic TP DAILY [facility] Last Admin: 10/24/19 10:35 Dose: 1 applic Valacyclovir HCl (Valtrex -) 500 mg PO DAILY [facility] Last Admin: 10/24/19 09:57 Dose: 500 mg - Objective Vital Signs: Vital Signs Temperature 98.3 F 10/24/19 00:00 Pulse Rate 72 10/24/19 08:00 Respiratory Rate 13 10/24/19 08:00 Blood Pressure 97/58 L 10/24/19 08:00 O2 Sat by Pulse Oximetry (%) 100 10/24/19 08:27 Constitutional: Yes: Calm Eyes: Yes: Conjunctiva Clear HENT: Yes: Atraumatic Neck: Yes: Supple Cardiovascular: Yes: S1, S2 Respiratory: Yes: On BiPap Gastrointestinal: Yes: Normal Bowel Sounds, Soft Genitourinary: Yes: Incontinence Musculoskeletal: Yes: Muscle Weakness Edema: Yes Edema: LLE: 1+, RLE: 1+ Neurological: Yes: Oriented Labs: CBC, BMP 10/24/19 06:11 10/23/19 16:52 INR, PTT INR 0.99 (0.83-1.09) 10/07/19 02:55 Problem List - Problems (1) Fluid overload Code(s): E87.70 - FLUID OVERLOAD, UNSPECIFIED (2) CKD (chronic kidney disease) Code(s): N18.9 - CHRONIC KIDNEY DISEASE, UNSPECIFIED Assessment/Plan Current Medications Generic Name Dose Route Start Last Admin Trade Name Freq PRN Reason Stop Dose Admin Acetaminophen 650 mg 10/21/19 18:26 Tylenol - PO Q6H PRN FEVER Albuterol/Ipratropium 1 amp 10/21/19 18:26 Duoneb - NEB Q4H PRN SHORTNESS OF BREATH Allopurinol 100 mg 10/22/19 10:00 10/24/19 09:57 Zyloprim - PO 100 mg DAILY [facility] Administration Amiodarone HCl 200 mg 10/21/19 22:00 10/24/19 09:57 Cordarone - PO 200 mg BID [facility] Administration Aspirin 81 mg 10/22/19 10:00 10/24/19 10:35 Ecotrin - PO 81 mg DAILY [facility] Administration Atorvastatin Calcium 80 mg 10/21/19 22:00 10/23/19 21:48 Lipitor - PO 80 mg HS [facility] Administration Clopidogrel Bisulfate 75 mg 10/22/19 10:00 10/23/19 10:51 Plavix - PO 75 mg DAILY [facility] Administration Escitalopram Oxalate 20 mg 10/24/19 10:00 10/24/19 09:57 Lexapro - PO 20 mg DAILY [facility] Administration Levothyroxine Sodium 75 mcg 10/22/19 07:00 10/24/19 06:15 Synthroid - PO 75 mcg DAILY@0700 [facility] Administration Melatonin 10 mg 10/23/19 02:13 10/23/19 22:13 Melatonin PO 10 mg HS PRN Administration INSOMNIA Midodrine 10 mg 10/22/19 10:00 10/24/19 09:57 Proamatine - PO 10 mg TID-MID [facility] Administration Pantoprazole Sodium 40 mg 10/22/19 10:00 10/24/19 09:57 Protonix - PO 40 mg DAILY [facility] Administration Prednisone 20 mg 10/24/19 10:00 10/24/19 09:56 Deltasone - PO 20 mg DAILY [facility] Administration Silver Sulfadiazine 1 applic 10/22/19 10:00 10/24/19 10:35 Silvadene - TP 1 applic DAILY [facility] Administration Valacyclovir HCl 500 mg 10/22/19 10:00 10/24/19 09:57 Valtrex - PO 500 mg DAILY [facility] Administration Impression 1. proteinuria 2. multiple myeloma 3. amyloid 4. dizziness 5. hypotension 6. HLD 7. hypothyroidism 8. anemia 9. CKD 10. fluid overload 11. hypotension 12. hyperkalemia 13. nstemi 14. DEBBIE Plan - will need HD access - discuss GOC - am cxr - monitor bp - pt remains oliguric - prognosis is poor
[2019-10-24] MEDS: CLOPIDOGREL BISULFATE 75 MG TABLET (FP) PO SCH (13:28)
--- NOTE | 2019-10-24 15:37 | PN ---
Progress Note, Physician History of Present Illness: weak tired breathing better - Current Medication List Current Medications: Active Medications Acetaminophen (Tylenol -) 650 mg PO Q6H PRN PRN Reason: FEVER Albuterol/Ipratropium (Duoneb -) 1 amp NEB Q4H PRN PRN Reason: SHORTNESS OF BREATH Allopurinol (Zyloprim -) 100 mg PO DAILY [facility] Last Admin: 10/24/19 09:57 Dose: 100 mg Amiodarone HCl (Cordarone -) 200 mg PO BID [facility] Last Admin: 10/24/19 09:57 Dose: 200 mg Aspirin (Ecotrin -) 81 mg PO DAILY [facility] Last Admin: 10/24/19 10:35 Dose: 81 mg Atorvastatin Calcium (Lipitor -) 80 mg PO HS [facility] Last Admin: 10/23/19 21:48 Dose: 80 mg Clopidogrel Bisulfate (Plavix -) 75 mg PO DAILY [facility] Last Admin: 10/24/19 13:28 Dose: 75 mg Escitalopram Oxalate (Lexapro -) 20 mg PO DAILY [facility] Last Admin: 10/24/19 09:57 Dose: 20 mg Levothyroxine Sodium (Synthroid -) 75 mcg PO DAILY@0700 [facility] Last Admin: 10/24/19 06:15 Dose: 75 mcg Melatonin (Melatonin) 10 mg PO HS PRN PRN Reason: INSOMNIA Last Admin: 10/23/19 22:13 Dose: 10 mg Midodrine (Proamatine -) 10 mg PO TID-MID [facility] Last Admin: 10/24/19 13:10 Dose: 10 mg Pantoprazole Sodium (Protonix -) 40 mg PO DAILY [facility] Last Admin: 10/24/19 09:57 Dose: 40 mg Prednisone (Deltasone -) 20 mg PO DAILY [facility] Last Admin: 10/24/19 09:56 Dose: 20 mg Silver Sulfadiazine (Silvadene -) 1 applic TP DAILY [facility] Last Admin: 10/24/19 10:35 Dose: 1 applic Valacyclovir HCl (Valtrex -) 500 mg PO DAILY [facility] Last Admin: 10/24/19 09:57 Dose: 500 mg - Objective Vital Signs: Vital Signs Temperature 98.3 F 10/24/19 00:00 Pulse Rate 72 10/24/19 08:00 Respiratory Rate 13 10/24/19 08:00 Blood Pressure 97/58 L 10/24/19 08:00 O2 Sat by Pulse Oximetry (%) 98 10/24/19 12:30 Constitutional: Yes: No Distress, Calm Respiratory: Yes: On Nasal O2, Other Gastrointestinal: Yes: Normal Bowel Sounds, Soft Musculoskeletal: Yes: WNL Extremities: Yes: WNL Neurological: Yes: Alert, Oriented Psychiatric: Yes: Alert, Oriented Labs: CBC, BMP 10/24/19 06:11 10/23/19 16:52 INR, PTT INR 0.99 (0.83-1.09) 10/07/19 02:55 Assessment/Plan Problem List - Problems (1) Anasarca Code(s): R60.1 - GENERALIZED EDEMA (2) Fluid overload Code(s): E87.70 - FLUID OVERLOAD, UNSPECIFIED (3) Hypoxia Code(s): R09.02 - HYPOXEMIA (4) Weakness Code(s): R53.1 - WEAKNESS (5) ASHD (arteriosclerotic heart disease) Code(s): I25.10 - ATHSCL HEART DISEASE OF [place] CORONARY ARTERY W/O ANG PCTRS (6) Acute exacerbation of CHF (congestive heart failure) Code(s): I50.9 - HEART FAILURE, UNSPECIFIED (7) Acute on chronic systolic CHF (congestive heart failure) Code(s): I50.23 - ACUTE ON CHRONIC SYSTOLIC (CONGESTIVE) HEART FAILURE (8) Adult onset hypothyroidism Code(s): E03.8 - OTHER SPECIFIED HYPOTHYROIDISM (9) Anemia Code(s): D64.9 - ANEMIA, UNSPECIFIED (10) CKD (chronic kidney disease) Code(s): N18.9 - CHRONIC KIDNEY DISEASE, UNSPECIFIED (11) Elevated troponin Code(s): R74.8 - ABNORMAL LEVELS OF OTHER SERUM ENZYMES (12) HLD (hyperlipidemia) Code(s): E78.5 - HYPERLIPIDEMIA, UNSPECIFIED Qualifiers: Hyperlipidemia type: unspecified Qualified Code(s): E78.5 - Hyperlipidemia , unspecified (13) HTN (hypertension) Code(s): I10 - ESSENTIAL (PRIMARY) HYPERTENSION Qualifiers: Hypertension type: unspecified Qualified Code(s): I10 - Essential (primary ) hypertension (14) History of heart artery stent Code(s): Z95.5 - PRESENCE OF CORONARY ANGIOPLASTY IMPLANT AND GRAFT (15) Multiple myeloma Code(s): C90.00 - MULTIPLE MYELOMA NOT HAVING ACHIEVED REMISSION Qualifiers: Multiple myeloma remission status: not in remission Qualified Code(s): C90.00 - Multiple myeloma not having achieved remission uti hypotension Assessment/Plan completed abx resp support dialysis rest as per the team
--- NOTE | 2019-10-24 21:03 | PN ---
Progress Note (short form) - Note Progress Note: Patient seen and examiend reports feeling tired Last Vital Signs Temp Pulse Resp BP Pulse Ox 98.1 F 80 17 100/61 98 10/24/19 16:00 10/24/19 16:00 10/24/19 16:00 10/24/19 16:00 10/24/19 21:29 Cor: RSR, No murmurs, No gallops Lungs: decreased at bases Abd: Soft, Normal bowel sounds, Ext:3+ edema Abnormal Lab Results 10/24/19 06:11 RBC 3.11 L Hgb 10.1 L Hct 31.2 L MCV 100.4 H RDW 22.0 H Plt Count 71 L D Active Medications Generic Name Dose Route Start Last Admin Trade Name Freq PRN Reason Stop Dose Admin Acetaminophen 650 mg 10/21/19 18:26 Tylenol - PO Q6H PRN FEVER Albuterol/Ipratropium 1 amp 10/21/19 18:26 Duoneb - NEB Q4H PRN SHORTNESS OF BREATH Allopurinol 100 mg 10/22/19 10:00 10/24/19 09:57 Zyloprim - PO 100 mg DAILY [facility] Administration Amiodarone HCl 200 mg 10/21/19 22:00 10/24/19 23:49 Cordarone - PO Not Given BID [facility] Aspirin 81 mg 10/22/19 10:00 10/24/19 10:35 Ecotrin - PO 81 mg DAILY [facility] Administration Atorvastatin Calcium 80 mg 10/21/19 22:00 10/24/19 23:50 Lipitor - PO Not Given HS [facility] Clopidogrel Bisulfate 75 mg 10/22/19 10:00 10/24/19 13:28 Plavix - PO 75 mg DAILY [facility] Administration Escitalopram Oxalate 20 mg 10/24/19 10:00 10/24/19 09:57 Lexapro - PO 20 mg DAILY [facility] Administration Levothyroxine Sodium 75 mcg 10/22/19 07:00 10/24/19 06:15 Synthroid - PO 75 mcg DAILY@0700 [facility] Administration Melatonin 10 mg 10/23/19 02:13 10/23/19 22:13 Melatonin PO 10 mg HS PRN Administration INSOMNIA Midodrine 10 mg 10/22/19 10:00 10/24/19 17:36 Proamatine - PO 10 mg TID-MID [facility] Administration Pantoprazole Sodium 40 mg 10/22/19 10:00 10/24/19 09:57 Protonix - PO 40 mg DAILY [facility] Administration Prednisone 20 mg 10/24/19 10:00 10/24/19 09:56 Deltasone - PO 20 mg DAILY [facility] Administration Silver Sulfadiazine 1 applic 10/22/19 10:00 10/24/19 10:35 Silvadene - TP 1 applic DAILY [facility] Administration Valacyclovir HCl 500 mg 10/22/19 10:00 10/24/19 09:57 Valtrex - PO 500 mg DAILY [facility] Administration A/P Multiple Myeloma Amyloid CHF Anemia Fever LLL atelectasis vs infiltrate UTI Renal failure Hypotension CHF On midodrine On steroids Started HD ---lst dialyzed 10/21. PAtient expressed wishes to me and the nurse that she would want to be DNR/DNI and that she would want to stop dialysis and consider hospice. Communicated this with son Derrick farnsworth. Grandson Foster is in disagreement and wants her to pursue dialysis , cvvh etc. Will request ethics consult in this scenario Will communicate with icu/renal tems Overall poor prognosis with cardiac and renal amyloid and would recommend palliative /comfort care discussed with nursing staff
[2019-10-24] MEDS: ATORVASTATIN CA 80 MG TABLET (FP) PO SCH ×2 (23:46→23:50)
--- NOTE | 2019-10-25 09:46 | PN ---
Physical Exam: SUBJECTIVE: Patient seen and examined at the bedside. follows some commands, but mostly lethargic. on bipap. OBJECTIVE: Patient is a 74 year old female with past medical history of hypertension, HLD, CAD s/p coronary artery stenting, GERD, multiple myeloma (chemo; radiation directed at abdomen), poor LV compliance on Lasix, rectal hemorrhoids presented to ED for diarrhea x2 days associated with generalized weakness, and with acute shortness of breath. Vital Signs Period Temp Pulse Resp BP Sys/Moss Pulse Ox Last 24 Hr 98.1 F-98.2 F 73-85 15-17 96-118/57-65 96-100 GENERAL: lethargic, in no acute distress HEAD: Normal with no signs of trauma. EYES: PERRL, extraocular movements intact, sclera anicteric, conjunctiva clear. No ptosis. ENT: Ears normal, nares patent, oropharynx clear without exudates NECK: Trachea midline, full range of motion, supple. LUNGS: Breath sounds equal, clear on anterior lobes HEART: Regular rate and rhythm ABDOMEN: Soft, nontender, nondistended, normoactive bowel sounds, no guarding EXTREMITIES: no edema. NEUROLOGICAL: Normal speech, gait not observed. PSYCH: Normal mood, normal affect. SKIN: Warm, dry, normal turgor, no rashes or lesions noted Active Medications Generic Name Dose Route Start Last Admin Trade Name Freq PRN Reason Stop Dose Admin Acetaminophen 650 mg 10/21/19 18:26 Tylenol - PO Q6H PRN FEVER Albuterol/Ipratropium 1 amp 10/21/19 18:26 Duoneb - NEB Q4H PRN SHORTNESS OF BREATH Allopurinol 100 mg 10/22/19 10:00 10/24/19 09:57 Zyloprim - PO 100 mg DAILY [facility] Administration Amiodarone HCl 200 mg 10/21/19 22:00 10/24/19 23:49 Cordarone - PO Not Given BID [facility] Aspirin 81 mg 10/22/19 10:00 10/24/19 10:35 Ecotrin - PO 81 mg DAILY [facility] Administration Atorvastatin Calcium 80 mg 10/21/19 22:00 10/24/19 23:50 Lipitor - PO Not Given HS [facility] Clopidogrel Bisulfate 75 mg 10/22/19 10:00 10/24/19 13:28 Plavix - PO 75 mg DAILY [facility] Administration Escitalopram Oxalate 20 mg 10/24/19 10:00 10/24/19 09:57 Lexapro - PO 20 mg DAILY [facility] Administration Levothyroxine Sodium 75 mcg 10/22/19 07:00 10/24/19 06:15 Synthroid - PO 75 mcg DAILY@0700 [facility] Administration Melatonin 10 mg 10/23/19 02:13 10/23/19 22:13 Melatonin PO 10 mg HS PRN Administration INSOMNIA Midodrine 10 mg 10/22/19 10:00 10/24/19 17:36 Proamatine - PO 10 mg TID-MID [facility] Administration Pantoprazole Sodium 40 mg 10/22/19 10:00 10/24/19 09:57 Protonix - PO 40 mg DAILY [facility] Administration Prednisone 20 mg 10/24/19 10:00 10/24/19 09:56 Deltasone - PO 20 mg DAILY [facility] Administration Silver Sulfadiazine 1 applic 10/22/19 10:00 10/24/19 10:35 Silvadene - TP 1 applic DAILY [facility] Administration Valacyclovir HCl 500 mg 10/22/19 10:00 10/24/19 09:57 Valtrex - PO 500 mg DAILY [facility] Administration ASSESSMENT/PLAN: Problem List - Problems (1) Acute respiratory failure with hypoxia Assessment/Plan: on bipap to assist work of breathing pulmonary following Code(s): J96.01 - ACUTE RESPIRATORY FAILURE WITH HYPOXIA (2) Acute on chronic renal failure Assessment/Plan: HD per renal. continue lasix as needed. monitor labs Code(s): N17.9 - ACUTE KIDNEY FAILURE, UNSPECIFIED; N18.9 - CHRONIC KIDNEY DISEASE, UNSPECIFIED (3) Acute renal insufficiency Assessment/Plan: monitor with daily labs Code(s): N28.9 - DISORDER OF KIDNEY AND URETER, UNSPECIFIED (4) Depression Assessment/Plan: supportive care on lexapro Code(s): F32.9 - MAJOR DEPRESSIVE DISORDER, SINGLE EPISODE, UNSPECIFIED (5) Fluid overload Assessment/Plan: monitor intake and output, daily weights Code(s): E87.70 - FLUID OVERLOAD, UNSPECIFIED (6) Weakness Code(s): R53.1 - WEAKNESS (7) Hypotension Assessment/Plan: Cont midodrine Taper IV hydrocortisone Code(s): I95.9 - HYPOTENSION, UNSPECIFIED (8) Acute on chronic systolic CHF (congestive heart failure) Assessment/Plan: Pt on lasix prn Monitor electrolytes Will need to restart entresto once BP more stable Code(s): I50.23 - ACUTE ON CHRONIC SYSTOLIC (CONGESTIVE) HEART FAILURE Visit type - Emergency Visit Emergency Visit: Yes ED Registration Date: 09/20/19 Care time: The patient presented to the Emergency Department on the above date and was hospitalized for further evaluation of their emergent condition. - New Patient This patient is new to me today: Yes Date on this admission: 10/25/19 - Critical Care Critical Care patient: No - Discharge Referral Referred to [facility] No
[2019-10-25] MEDS: LEVOTHYROXINE NA 75 MCG TABLET (FP) PO SCH (10:22)
[2019-10-25] MEDS: CLOPIDOGREL BISULFATE 75 MG TABLET (FP) PO SCH (10:22)
[2019-10-25] MEDS: predniSONE 20 MG TABLET (UD) PO SCH (10:22)
[2019-10-25] MEDS: AMIODARONE HCL 200 MG TABLET (FP) PO SCH ×2 (10:22→22:00)
[2019-10-25] MEDS: ESCITALOPRAM OXALATE 20 MG TABLET (FP) PO SCH (10:22)
[2019-10-25] MEDS: ASPIRIN COATED 81 MG TABLET.EC PO SCH (10:22)
[2019-10-25] MEDS: MIDODRINE HCL 5 MG TABLET PO SCH ×3 (10:22→17:39)
[2019-10-25] MEDS: PANTOPRAZOLE 40 MG TABLET (FP) PO SCH (10:23)
[2019-10-25] MEDS: valACYclovir HCL 500 MG TABLET (FP) PO SCH (10:23)
[2019-10-25] MEDS: ALLOPURINOL 100 MG TABLET (FP) PO SCH (10:23)
--- NOTE | 2019-10-25 11:28 | PN ---
Progress Note (short form) - Note Progress Note: PULMONARY Remains on BiPAP. Somnolent but arousable. Vital Signs Period Temp Pulse Resp BP Sys/Moss Pulse Ox Last 24 Hr 98.1 F-98.2 F 73-85 15-17 96-118/57-65 96-100 Intake & Output 10/22/19 10/23/19 10/24/19 10/25/19 23:59 23:59 23:59 23:59 Intake Total 280 50 20 Balance 280 50 20 Weight 71.016 kg 68.084 kg 69.082 kg Gen: tachypneic on BiPAP Heart: RRR Lung: decreased breath sounds at the bases Abd: soft, nontender Ext: + edema CBC, BMP 10/24/19 06:11 10/23/19 16:52 Active Medications Acetaminophen (Tylenol -) 650 mg PO Q6H PRN PRN Reason: FEVER Albuterol/Ipratropium (Duoneb -) 1 amp NEB Q4H PRN PRN Reason: SHORTNESS OF BREATH Allopurinol (Zyloprim -) 100 mg PO DAILY [facility] Last Admin: 10/25/19 10:23 Dose: Not Given Amiodarone HCl (Cordarone -) 200 mg PO BID [facility] Last Admin: 10/25/19 10:22 Dose: Not Given Aspirin (Ecotrin -) 81 mg PO DAILY [facility] Last Admin: 10/25/19 10:22 Dose: Not Given Atorvastatin Calcium (Lipitor -) 80 mg PO HS [facility] Last Admin: 10/24/19 23:50 Dose: Not Given Clopidogrel Bisulfate (Plavix -) 75 mg PO DAILY [facility] Last Admin: 10/25/19 10:22 Dose: Not Given Escitalopram Oxalate (Lexapro -) 20 mg PO DAILY [facility] Last Admin: 10/25/19 10:22 Dose: Not Given Levothyroxine Sodium (Synthroid -) 75 mcg PO DAILY@0700 [facility] Last Admin: 10/25/19 10:22 Dose: Not Given Melatonin (Melatonin) 10 mg PO HS PRN PRN Reason: INSOMNIA Last Admin: 10/23/19 22:13 Dose: 10 mg Midodrine (Proamatine -) 10 mg PO TID-MID [facility] Last Admin: 10/25/19 10:22 Dose: Not Given Pantoprazole Sodium (Protonix -) 40 mg PO DAILY [facility] Last Admin: 10/25/19 10:23 Dose: Not Given Prednisone (Deltasone -) 20 mg PO DAILY [facility] Last Admin: 10/25/19 10:22 Dose: Not Given Silver Sulfadiazine (Silvadene -) 1 applic TP DAILY [facility] Last Admin: 10/24/19 10:35 Dose: 1 applic Valacyclovir HCl (Valtrex -) 500 mg PO DAILY [facility] Last Admin: 10/25/19 10:23 Dose: Not Given A/P Acute on Chronic Systolic Heart Failure Cardiogenic Shock resolving Acute on Chronic Renal Failure requiring HD CAD Acute NSTEMI Paroxysmal Atrial Fibrillation Pneumonia Asthma Multiple Myeloma HTN Hyperlipidemia Hypothyroidism Anemia Hyponatremia - HD per renal - monitor urine output, creatinine - daily weights - amiodarone - monitor H/H - completed antibiotics - O2 to keep SpO2 >90% - inhaled bronchodilators as needed - BiPAP to assist in work of breathing - taper hydrocortisone - DVT prophylaxis - poor overall prognosis, continue discussions regarding goals of care - palliative care input appreciated
--- NOTE | 2019-10-25 14:35 | PN ---
Progress Note, Physician History of Present Illness: Pt seen and examined at bedside. She has been refusing labs. She refused access for HD. She says that she does not want HD. I called her health car proxy Carlo who says that he wants to talk to her before any final decisions were made. - Current Medication List Current Medications: Active Medications Acetaminophen (Tylenol -) 650 mg PO Q6H PRN PRN Reason: FEVER Albuterol/Ipratropium (Duoneb -) 1 amp NEB Q4H PRN PRN Reason: SHORTNESS OF BREATH Allopurinol (Zyloprim -) 100 mg PO DAILY [facility] Last Admin: 10/25/19 10:23 Dose: Not Given Amiodarone HCl (Cordarone -) 200 mg PO BID [facility] Last Admin: 10/25/19 10:22 Dose: Not Given Aspirin (Ecotrin -) 81 mg PO DAILY [facility] Last Admin: 10/25/19 10:22 Dose: Not Given Atorvastatin Calcium (Lipitor -) 80 mg PO HS [facility] Last Admin: 10/24/19 23:50 Dose: Not Given Clopidogrel Bisulfate (Plavix -) 75 mg PO DAILY [facility] Last Admin: 10/25/19 10:22 Dose: Not Given Escitalopram Oxalate (Lexapro -) 20 mg PO DAILY [facility] Last Admin: 10/25/19 10:22 Dose: Not Given Levothyroxine Sodium (Synthroid -) 75 mcg PO DAILY@0700 [facility] Last Admin: 10/25/19 10:22 Dose: Not Given Melatonin (Melatonin) 10 mg PO HS PRN PRN Reason: INSOMNIA Last Admin: 10/23/19 22:13 Dose: 10 mg Midodrine (Proamatine -) 10 mg PO TID-MID [facility] Last Admin: 10/25/19 10:22 Dose: Not Given Pantoprazole Sodium (Protonix -) 40 mg PO DAILY [facility] Last Admin: 10/25/19 10:23 Dose: Not Given Prednisone (Deltasone -) 20 mg PO DAILY [facility] Last Admin: 10/25/19 10:22 Dose: Not Given Silver Sulfadiazine (Silvadene -) 1 applic TP DAILY [facility] Last Admin: 10/24/19 10:35 Dose: 1 applic Valacyclovir HCl (Valtrex -) 500 mg PO DAILY [facility] Last Admin: 10/25/19 10:23 Dose: Not Given - Objective Vital Signs: Vital Signs Temperature 98.1 F 10/24/19 16:00 Pulse Rate 85 10/25/19 07:38 Respiratory Rate 16 10/25/19 07:38 Blood Pressure 102/61 10/25/19 07:38 O2 Sat by Pulse Oximetry (%) 97 10/25/19 12:07 Constitutional: Yes: Calm Eyes: Yes: Conjunctiva Clear HENT: Yes: Atraumatic Cardiovascular: Yes: S1, S2 Respiratory: Yes: On Nasal O2 Gastrointestinal: Yes: Soft Genitourinary: Yes: Incontinence Edema: Yes Edema: LLE: Trace, RLE: Trace Neurological: Yes: Oriented Psychiatric: Yes: Oriented Labs: CBC, BMP 10/24/19 06:11 10/23/19 16:52 INR, PTT INR 0.99 (0.83-1.09) 10/07/19 02:55 Problem List - Problems (1) Fluid overload Code(s): E87.70 - FLUID OVERLOAD, UNSPECIFIED (2) CKD (chronic kidney disease) Code(s): N18.9 - CHRONIC KIDNEY DISEASE, UNSPECIFIED Assessment/Plan Current Medications Generic Name Dose Route Start Last Admin Trade Name Freq PRN Reason Stop Dose Admin Acetaminophen 650 mg 10/21/19 18:26 Tylenol - PO Q6H PRN FEVER Albuterol/Ipratropium 1 amp 10/21/19 18:26 Duoneb - NEB Q4H PRN SHORTNESS OF BREATH Allopurinol 100 mg 10/22/19 10:00 10/25/19 10:23 Zyloprim - PO Not Given DAILY [facility] Amiodarone HCl 200 mg 10/21/19 22:00 10/25/19 10:22 Cordarone - PO Not Given BID [facility] Aspirin 81 mg 10/22/19 10:00 10/25/19 10:22 Ecotrin - PO Not Given DAILY [facility] Atorvastatin Calcium 80 mg 10/21/19 22:00 10/24/19 23:50 Lipitor - PO Not Given HS [facility] Clopidogrel Bisulfate 75 mg 10/22/19 10:00 10/25/19 10:22 Plavix - PO Not Given DAILY [facility] Escitalopram Oxalate 20 mg 10/24/19 10:00 10/25/19 10:22 Lexapro - PO Not Given DAILY [facility] Levothyroxine Sodium 75 mcg 10/22/19 07:00 10/25/19 10:22 Synthroid - PO Not Given DAILY@0700 [facility] Melatonin 10 mg 10/23/19 02:13 10/23/19 22:13 Melatonin PO 10 mg HS PRN Administration INSOMNIA Midodrine 10 mg 10/22/19 10:00 10/25/19 10:22 Proamatine - PO Not Given TID-MID [facility] Pantoprazole Sodium 40 mg 10/22/19 10:00 10/25/19 10:23 Protonix - PO Not Given DAILY [facility] Prednisone 20 mg 10/24/19 10:00 10/25/19 10:22 Deltasone - PO Not Given DAILY [facility] Silver Sulfadiazine 1 applic 10/22/19 10:00 10/24/19 10:35 Silvadene - TP 1 applic DAILY [facility] Administration Valacyclovir HCl 500 mg 10/22/19 10:00 10/25/19 10:23 Valtrex - PO Not Given DAILY [facility] Impression 1. proteinuria 2. multiple myeloma 3. amyloid 4. dizziness 5. hypotension 6. HLD 7. hypothyroidism 8. anemia 9. CKD 10. fluid overload 11. hypotension 12. hyperkalemia 13. nstemi 14. DEBBIE Plan - pt refusing HD - check labs if she agrees - called and discussed with her family - discussed with hematology - prognosis is poor
[2019-10-25 15:33] VITALS: BMI 26.1
[2019-10-25] MEDS: SILVER SULFADIAZINE 1% TOP CREAM 50 GM JAR TP SCH (16:20)
--- NOTE | 2019-10-25 17:46 | PN ---
Progress Note, Physician History of Present Illness: refusing dialysis refusing labs - Current Medication List Current Medications: Active Medications Acetaminophen (Tylenol -) 650 mg PO Q6H PRN PRN Reason: FEVER Albuterol/Ipratropium (Duoneb -) 1 amp NEB Q4H PRN PRN Reason: SHORTNESS OF BREATH Allopurinol (Zyloprim -) 100 mg PO DAILY [facility] Last Admin: 10/25/19 10:23 Dose: Not Given Amiodarone HCl (Cordarone -) 200 mg PO BID [facility] Last Admin: 10/25/19 10:22 Dose: Not Given Aspirin (Ecotrin -) 81 mg PO DAILY [facility] Last Admin: 10/25/19 10:22 Dose: Not Given Atorvastatin Calcium (Lipitor -) 80 mg PO HS [facility] Last Admin: 10/24/19 23:50 Dose: Not Given Clopidogrel Bisulfate (Plavix -) 75 mg PO DAILY [facility] Last Admin: 10/25/19 10:22 Dose: Not Given Escitalopram Oxalate (Lexapro -) 20 mg PO DAILY [facility] Last Admin: 10/25/19 10:22 Dose: Not Given Levothyroxine Sodium (Synthroid -) 75 mcg PO DAILY@0700 [facility] Last Admin: 10/25/19 10:22 Dose: Not Given Melatonin (Melatonin) 10 mg PO HS PRN PRN Reason: INSOMNIA Last Admin: 10/23/19 22:13 Dose: 10 mg Midodrine (Proamatine -) 10 mg PO TID-MID [facility] Last Admin: 10/25/19 17:39 Dose: Not Given Pantoprazole Sodium (Protonix -) 40 mg PO DAILY [facility] Last Admin: 10/25/19 10:23 Dose: Not Given Prednisone (Deltasone -) 20 mg PO DAILY [facility] Last Admin: 10/25/19 10:22 Dose: Not Given Silver Sulfadiazine (Silvadene -) 1 applic TP DAILY [facility] Last Admin: 10/25/19 16:20 Dose: 1 applic Valacyclovir HCl (Valtrex -) 500 mg PO DAILY [facility] Last Admin: 10/25/19 10:23 Dose: Not Given - Objective Vital Signs: Vital Signs Temperature 98.1 F 10/24/19 16:00 Pulse Rate 80 10/25/19 15:00 Respiratory Rate 16 10/25/19 15:00 Blood Pressure 100/59 L 10/25/19 15:00 O2 Sat by Pulse Oximetry (%) 97 10/25/19 12:07 Constitutional: Yes: No Distress, Calm Cardiovascular: Yes: S1, S2 Respiratory: Yes: Regular, CTA Bilaterally, On Nasal O2 Gastrointestinal: Yes: Normal Bowel Sounds, Soft Musculoskeletal: Yes: WNL Extremities: Yes: WNL Edema: LLE: 1+, RLE: 1+ Neurological: Yes: Alert, Oriented Psychiatric: Yes: Alert, Oriented Labs: CBC, BMP 10/24/19 06:11 10/23/19 16:52 INR, PTT INR 0.99 (0.83-1.09) 10/07/19 02:55 Assessment/Plan Problem List - Problems (1) Anasarca Code(s): R60.1 - GENERALIZED EDEMA (2) Fluid overload Code(s): E87.70 - FLUID OVERLOAD, UNSPECIFIED (3) Hypoxia Code(s): R09.02 - HYPOXEMIA (4) Weakness Code(s): R53.1 - WEAKNESS (5) ASHD (arteriosclerotic heart disease) Code(s): I25.10 - ATHSCL HEART DISEASE OF [place] CORONARY ARTERY W/O ANG PCTRS (6) Acute exacerbation of CHF (congestive heart failure) Code(s): I50.9 - HEART FAILURE, UNSPECIFIED (7) Acute on chronic systolic CHF (congestive heart failure) Code(s): I50.23 - ACUTE ON CHRONIC SYSTOLIC (CONGESTIVE) HEART FAILURE (8) Adult onset hypothyroidism Code(s): E03.8 - OTHER SPECIFIED HYPOTHYROIDISM (9) Anemia Code(s): D64.9 - ANEMIA, UNSPECIFIED (10) CKD (chronic kidney disease) Code(s): N18.9 - CHRONIC KIDNEY DISEASE, UNSPECIFIED (11) Elevated troponin Code(s): R74.8 - ABNORMAL LEVELS OF OTHER SERUM ENZYMES (12) HLD (hyperlipidemia) Code(s): E78.5 - HYPERLIPIDEMIA, UNSPECIFIED Qualifiers: Hyperlipidemia type: unspecified Qualified Code(s): E78.5 - Hyperlipidemia , unspecified (13) HTN (hypertension) Code(s): I10 - ESSENTIAL (PRIMARY) HYPERTENSION Qualifiers: Hypertension type: unspecified Qualified Code(s): I10 - Essential (primary ) hypertension (14) History of heart artery stent Code(s): Z95.5 - PRESENCE OF CORONARY ANGIOPLASTY IMPLANT AND GRAFT (15) Multiple myeloma Code(s): C90.00 - MULTIPLE MYELOMA NOT HAVING ACHIEVED REMISSION Qualifiers: Multiple myeloma remission status: not in remission Qualified Code(s): C90.00 - Multiple myeloma not having achieved remission uti hypotension Assessment/Plan completed abx resp support dialysis rest as per the team will d/w the patient
--- NOTE | 2019-10-25 19:30 | PN ---
Progress Note (short form) - Note Progress Note: Patient seen and examiend arousable. comfortable Last Vital Signs Temp Pulse Resp BP Pulse Ox 98.1 F 80 16 100/59 L 97 10/24/19 16:00 10/25/19 15:00 10/25/19 15:00 10/25/19 15:00 10/25/19 12:07 Cor: RSR, No murmurs, No gallops Lungs: decreased at bases Abd: Soft, Normal bowel sounds, Ext:3+ edema Abnormal Lab Results Active Medications Generic Name Dose Route Start Last Admin Trade Name Freq PRN Reason Stop Dose Admin Acetaminophen 650 mg 10/21/19 18:26 Tylenol - PO Q6H PRN FEVER Albuterol/Ipratropium 1 amp 10/21/19 18:26 Duoneb - NEB Q4H PRN SHORTNESS OF BREATH Allopurinol 100 mg 10/22/19 10:00 10/25/19 10:23 Zyloprim - PO Not Given DAILY [facility] Amiodarone HCl 200 mg 10/21/19 22:00 10/25/19 10:22 Cordarone - PO Not Given BID [facility] Aspirin 81 mg 10/22/19 10:00 10/25/19 10:22 Ecotrin - PO Not Given DAILY [facility] Atorvastatin Calcium 80 mg 10/21/19 22:00 10/24/19 23:50 Lipitor - PO Not Given HS [facility] Clopidogrel Bisulfate 75 mg 10/22/19 10:00 10/25/19 10:22 Plavix - PO Not Given DAILY [facility] Escitalopram Oxalate 20 mg 10/24/19 10:00 10/25/19 10:22 Lexapro - PO Not Given DAILY [facility] Levothyroxine Sodium 75 mcg 10/22/19 07:00 10/25/19 10:22 Synthroid - PO Not Given DAILY@0700 [facility] Melatonin 10 mg 10/23/19 02:13 10/23/19 22:13 Melatonin PO 10 mg HS PRN Administration INSOMNIA Midodrine 10 mg 10/22/19 10:00 10/25/19 17:39 Proamatine - PO Not Given TID-MID [facility] Pantoprazole Sodium 40 mg 10/22/19 10:00 10/25/19 10:23 Protonix - PO Not Given DAILY [facility] Prednisone 20 mg 10/24/19 10:00 10/25/19 10:22 Deltasone - PO Not Given DAILY [facility] Silver Sulfadiazine 1 applic 10/22/19 10:00 10/25/19 16:20 Silvadene - TP 1 applic DAILY [facility] Administration Valacyclovir HCl 500 mg 10/22/19 10:00 10/25/19 10:23 Valtrex - PO Not Given DAILY [facility] A/P Multiple Myeloma Amyloid CHF Anemia Fever LLL atelectasis vs infiltrate UTI Renal failure Hypotension CHF On midodrine On steroids Started HD ---lst dialyzed 10/21. Patient refusing HD access, dialysis meds, blood draws Overall poor prognosis with cardiac and renal amyloid and would recommend palliative /comfort care discussed with nursing staff, renal team, PMD team
[2019-10-25] MEDS: ALBUTEROL SO4 2.5/IPRATROPIUM 0.5 INH SOL 3 ML VIAL.NEB. NEB PRN (20:35)
[2019-10-25] MEDS: ATORVASTATIN CA 80 MG TABLET (FP) PO SCH (22:00)
[2019-10-26] MEDS: LEVOTHYROXINE NA 75 MCG TABLET (FP) PO SCH (06:55)
[2019-10-26] MEDS: AMIODARONE HCL 200 MG TABLET (FP) PO SCH ×2 (10:11→22:09)
[2019-10-26] MEDS: predniSONE 20 MG TABLET (UD) PO SCH (10:12)
[2019-10-26] MEDS: MIDODRINE HCL 5 MG TABLET PO SCH ×3 (10:12→17:50)
[2019-10-26] MEDS: PANTOPRAZOLE 40 MG TABLET (FP) PO SCH (10:12)
[2019-10-26] MEDS: CLOPIDOGREL BISULFATE 75 MG TABLET (FP) PO SCH (10:12)
[2019-10-26] MEDS: ESCITALOPRAM OXALATE 20 MG TABLET (FP) PO SCH (10:12)
[2019-10-26] MEDS: ASPIRIN COATED 81 MG TABLET.EC PO SCH (10:12)
[2019-10-26] MEDS: ALLOPURINOL 100 MG TABLET (FP) PO SCH (10:14)
[2019-10-26] MEDS: valACYclovir HCL 500 MG TABLET (FP) PO SCH (10:14)
--- NOTE | 2019-10-26 10:17 | PN ---
Progress Note (short form) - Note Progress Note: PULMONARY Remains on BiPAP. Somnolent but arousable. Refusing labs, meds, HD. Vital Signs Period Temp Pulse Resp BP Sys/Moss Pulse Ox Last 24 Hr 97.6 F-97.8 F 67-85 10-18 99-105/58-62 97-98 Intake & Output 10/23/19 10/24/19 10/25/19 10/26/19 23:59 23:59 23:59 23:59 Intake Total 50 20 0 0 Balance 50 20 0 0 Weight 68.084 kg 69.082 kg Gen: mildly tachypneic on BiPAP Heart: RRR Lung: decreased breath sounds at the bases Abd: soft, nontender Ext: + edema CBC, BMP 10/24/19 06:11 10/23/19 16:52 Active Medications Acetaminophen (Tylenol -) 650 mg PO Q6H PRN PRN Reason: FEVER Albuterol/Ipratropium (Duoneb -) 1 amp NEB Q4H PRN PRN Reason: SHORTNESS OF BREATH Last Admin: 10/25/19 20:35 Dose: 1 amp Allopurinol (Zyloprim -) 100 mg PO DAILY [facility] Last Admin: 10/25/19 10:23 Dose: Not Given Amiodarone HCl (Cordarone -) 200 mg PO BID [facility] Last Admin: 10/25/19 22:00 Dose: Not Given Aspirin (Ecotrin -) 81 mg PO DAILY [facility] Last Admin: 10/25/19 10:22 Dose: Not Given Atorvastatin Calcium (Lipitor -) 80 mg PO HS [facility] Last Admin: 10/25/19 22:00 Dose: Not Given Clopidogrel Bisulfate (Plavix -) 75 mg PO DAILY [facility] Last Admin: 10/25/19 10:22 Dose: Not Given Escitalopram Oxalate (Lexapro -) 20 mg PO DAILY [facility] Last Admin: 10/25/19 10:22 Dose: Not Given Levothyroxine Sodium (Synthroid -) 75 mcg PO DAILY@0700 [facility] Last Admin: 10/26/19 06:55 Dose: Not Given Melatonin (Melatonin) 10 mg PO HS PRN PRN Reason: INSOMNIA Last Admin: 10/23/19 22:13 Dose: 10 mg Midodrine (Proamatine -) 10 mg PO TID-MID [facility] Last Admin: 10/25/19 17:39 Dose: Not Given Pantoprazole Sodium (Protonix -) 40 mg PO DAILY [facility] Last Admin: 10/25/19 10:23 Dose: Not Given Prednisone (Deltasone -) 20 mg PO DAILY [facility] Last Admin: 10/25/19 10:22 Dose: Not Given Silver Sulfadiazine (Silvadene -) 1 applic TP DAILY [facility] Last Admin: 10/25/19 16:20 Dose: 1 applic Valacyclovir HCl (Valtrex -) 500 mg PO DAILY [facility] Last Admin: 10/25/19 10:23 Dose: Not Given A/P Acute on Chronic Systolic Heart Failure Cardiogenic Shock resolving Acute on Chronic Renal Failure requiring HD CAD Acute NSTEMI Paroxysmal Atrial Fibrillation Pneumonia Asthma Multiple Myeloma HTN Hyperlipidemia Hypothyroidism Anemia Hyponatremia - HD per renal - monitor urine output, creatinine - daily weights - rate control - monitor H/H - completed antibiotics - O2 to keep SpO2 >90% - inhaled bronchodilators as needed - BiPAP to assist in work of breathing - taper off prednisone - DVT prophylaxis - agree with pt for conservative management as poor overall prognosis
[2019-10-26] MEDS: SILVER SULFADIAZINE 1% TOP CREAM 50 GM JAR TP SCH (11:13)
--- NOTE | 2019-10-26 12:55 | PN ---
Progress Note, Physician History of Present Illness: Pt seen and examined at bedside. She appears fatigued. Her grandson, NCP, Carlo came in last night and we all spoke. Pt was very clear about not wanting any more HD therapy or any more treatment. - Current Medication List Current Medications: Active Medications Acetaminophen (Tylenol -) 650 mg PO Q6H PRN PRN Reason: FEVER Albuterol/Ipratropium (Duoneb -) 1 amp NEB Q4H PRN PRN Reason: SHORTNESS OF BREATH Last Admin: 10/25/19 20:35 Dose: 1 amp Allopurinol (Zyloprim -) 100 mg PO DAILY [facility] Last Admin: 10/26/19 10:14 Dose: Not Given Amiodarone HCl (Cordarone -) 200 mg PO BID [facility] Last Admin: 10/26/19 10:11 Dose: Not Given Aspirin (Ecotrin -) 81 mg PO DAILY [facility] Last Admin: 10/26/19 10:12 Dose: Not Given Atorvastatin Calcium (Lipitor -) 80 mg PO HS [facility] Last Admin: 10/25/19 22:00 Dose: Not Given Clopidogrel Bisulfate (Plavix -) 75 mg PO DAILY [facility] Last Admin: 10/26/19 10:12 Dose: Not Given Escitalopram Oxalate (Lexapro -) 20 mg PO DAILY [facility] Last Admin: 10/26/19 10:12 Dose: Not Given Levothyroxine Sodium (Synthroid -) 75 mcg PO DAILY@0700 [facility] Last Admin: 10/26/19 06:55 Dose: Not Given Melatonin (Melatonin) 10 mg PO HS PRN PRN Reason: INSOMNIA Last Admin: 10/23/19 22:13 Dose: 10 mg Midodrine (Proamatine -) 10 mg PO TID-MID [facility] Last Admin: 10/26/19 10:12 Dose: Not Given Pantoprazole Sodium (Protonix -) 40 mg PO DAILY [facility] Last Admin: 10/26/19 10:12 Dose: Not Given Prednisone (Deltasone -) 20 mg PO DAILY [facility] Last Admin: 10/26/19 10:12 Dose: Not Given Silver Sulfadiazine (Silvadene -) 1 applic TP DAILY [facility] Last Admin: 10/26/19 11:13 Dose: 1 applic Valacyclovir HCl (Valtrex -) 500 mg PO DAILY [facility] Last Admin: 10/26/19 10:14 Dose: Not Given - Objective Vital Signs: Vital Signs Temperature 97.6 F 10/26/19 04:00 Pulse Rate 69 10/26/19 08:00 Respiratory Rate 16 10/26/19 09:00 Blood Pressure 97/57 L 10/26/19 08:00 O2 Sat by Pulse Oximetry (%) 99 10/26/19 09:00 Constitutional: Yes: Mild Distress Eyes: Yes: Conjunctiva Clear Cardiovascular: Yes: S1, S2 Gastrointestinal: Yes: Soft Genitourinary: Yes: Incontinence Musculoskeletal: Yes: Muscle Weakness Edema: Yes Edema: LLE: Trace, RLE: Trace Integumentary: Yes: WNL Neurological: Yes: Other (fatigued) Labs: CBC, BMP 10/24/19 06:11 10/23/19 16:52 INR, PTT INR 0.99 (0.83-1.09) 10/07/19 02:55 Problem List - Problems (1) Fluid overload Code(s): E87.70 - FLUID OVERLOAD, UNSPECIFIED (2) CKD (chronic kidney disease) Code(s): N18.9 - CHRONIC KIDNEY DISEASE, UNSPECIFIED Assessment/Plan Current Medications Generic Name Dose Route Start Last Admin Trade Name Freq PRN Reason Stop Dose Admin Acetaminophen 650 mg 10/21/19 18:26 Tylenol - PO Q6H PRN FEVER Albuterol/Ipratropium 1 amp 10/21/19 18:26 10/25/19 20:35 Duoneb - NEB 1 amp Q4H PRN Administration SHORTNESS OF BREATH Allopurinol 100 mg 10/22/19 10:00 10/26/19 10:14 Zyloprim - PO Not Given DAILY [facility] Amiodarone HCl 200 mg 10/21/19 22:00 10/26/19 10:11 Cordarone - PO Not Given BID [facility] Aspirin 81 mg 10/22/19 10:00 10/26/19 10:12 Ecotrin - PO Not Given DAILY [facility] Atorvastatin Calcium 80 mg 10/21/19 22:00 10/25/19 22:00 Lipitor - PO Not Given HS [facility] Clopidogrel Bisulfate 75 mg 10/22/19 10:00 10/26/19 10:12 Plavix - PO Not Given DAILY [facility] Escitalopram Oxalate 20 mg 10/24/19 10:00 10/26/19 10:12 Lexapro - PO Not Given DAILY [facility] Levothyroxine Sodium 75 mcg 10/22/19 07:00 10/26/19 06:55 Synthroid - PO Not Given DAILY@0700 [facility] Melatonin 10 mg 10/23/19 02:13 10/23/19 22:13 Melatonin PO 10 mg HS PRN Administration INSOMNIA Midodrine 10 mg 10/22/19 10:00 10/26/19 10:12 Proamatine - PO Not Given TID-MID [facility] Pantoprazole Sodium 40 mg 10/22/19 10:00 10/26/19 10:12 Protonix - PO Not Given DAILY [facility] Prednisone 20 mg 10/24/19 10:00 10/26/19 10:12 Deltasone - PO Not Given DAILY [facility] Silver Sulfadiazine 1 applic 10/22/19 10:00 10/26/19 11:13 Silvadene - TP 1 applic DAILY [facility] Administration Valacyclovir HCl 500 mg 10/22/19 10:00 10/26/19 10:14 Valtrex - PO Not Given DAILY [facility] Impression 1. proteinuria 2. multiple myeloma 3. amyloid 4. dizziness 5. hypotension 6. HLD 7. hypothyroidism 8. anemia 9. CKD 10. fluid overload 11. hypotension 12. hyperkalemia 13. nstemi 14. DEBBIE Plan - no new labs, pt refusing - pt does not want HD. HCP Carlo is aware - discussed with hematology - prognosis is poor
--- NOTE | 2019-10-26 16:26 | PN ---
Progress Note (short form) - Note Progress Note: Patient seen and examiend Actively bleeding Last Vital Signs Temp Pulse Resp BP Pulse Ox 97.5 F L 67 18 100/59 L 99 10/26/19 12:00 10/26/19 12:00 10/26/19 12:00 10/26/19 12:00 10/26/19 13:16 Cor: RSR, No murmurs, No gallops Lungs: decreased at bases Abd: Soft, Normal bowel sounds, Ext:3+ edema Labs/Meds reviewed A/P Multiple Myeloma Amyloid CHF Anemia Fever LLL atelectasis vs infiltrate Renal failure Hypotension CHF Active GI bleed Transfuse PRBCs Patient had refused HD access, dialysis, meds, blood draws. she is DNR/DNI Discussed current status with toño Meza and Minister[facility]. Notified them of her critical status. Discussed with nursing staff
[2019-10-26 20:32] LABS: BASO % 0.2 % (0-2.0); EOS % 0.1 % (0-4.5); HEMATOCRIT 32.9 % (32.4-45.2); HEMOGLOBIN 10.4 GM/dL (10.7-15.3); LYMPH % 1.4 % (8-40); MCH 32.1 pg (25.7-33.7); MCHC 31.7 g/dl (32.0-36.0); MEAN CELL VOLUME 101.4 fl (80-96); NEUT % 96.3 % (42.8-82.8); RBC 3.25 M/mm3 (3.60-5.2); RDW 23.9 % (11.6-15.6); WHITE BLOOD COUNT 6.7 K/mm3 (4.0-10.0)
--- NOTE | 2019-10-26 21:32 | PROC ---
Central Line Insertion Indication: Poor Venous Access Risks and Benefits Explained: Yes Consent on Chart: Yes Central Line: Triple Lumen Catheter Anesthesia: 1% Lidocaine Sterile Technique: Yes Ultrasound Guided Assistance: Yes Position: Left Internal Jugular Post Insertion: Yes: Chest X-Ray Ordered Sterile Dressing Applied: Yes
[2019-10-26 21:51] LABS: PLATELET COUNT 41 K/MM3 (134-434)
[2019-10-26 21:52] LABS: ANISOCYTOSIS 3+; MACROCYTOSIS 1+; OVALOCYTE 1+; PLATELET ESTIMATE DECREASED
[2019-10-26 22:04] LABS: ALBUMIN 1.7 g/dl (3.4-5.0); BILIRUBIN,TOTAL 1.1 mg/dL (0.2-1); BLOOD UREA NITROGEN 63.9 mg/dL (7-18); CALCIUM 7.9 mg/dL (8.5-10.1); POTASSIUM 5.1 mmol/L (3.5-5.1); TOT PROT 6.2 g/dl (6.4-8.2)
[2019-10-26] MEDS: ATORVASTATIN CA 80 MG TABLET (FP) PO SCH (22:09)
[2019-10-26] MEDS: ALBUTEROL SO4 2.5/IPRATROPIUM 0.5 INH SOL 3 ML VIAL.NEB. NEB PRN (23:00)
--- NOTE | 2019-10-26 23:37 | PN ---
Progress Note, Physician - Current Medication List Current Medications: Active Medications Acetaminophen (Tylenol -) 650 mg PO Q6H PRN PRN Reason: FEVER Albuterol/Ipratropium (Duoneb -) 1 amp NEB Q4H PRN PRN Reason: SHORTNESS OF BREATH Last Admin: 10/26/19 23:00 Dose: 1 amp Allopurinol (Zyloprim -) 100 mg PO DAILY [facility] Last Admin: 10/26/19 10:14 Dose: Not Given Amiodarone HCl (Cordarone -) 200 mg PO BID [facility] Last Admin: 10/26/19 22:09 Dose: Not Given Aspirin (Ecotrin -) 81 mg PO DAILY [facility] Last Admin: 10/26/19 10:12 Dose: Not Given Atorvastatin Calcium (Lipitor -) 80 mg PO HS [facility] Last Admin: 10/26/19 22:09 Dose: Not Given Clopidogrel Bisulfate (Plavix -) 75 mg PO DAILY [facility] Last Admin: 10/26/19 10:12 Dose: Not Given Escitalopram Oxalate (Lexapro -) 20 mg PO DAILY [facility] Last Admin: 10/26/19 10:12 Dose: Not Given Levothyroxine Sodium (Synthroid -) 75 mcg PO DAILY@0700 [facility] Last Admin: 10/26/19 06:55 Dose: Not Given Melatonin (Melatonin) 10 mg PO HS PRN PRN Reason: INSOMNIA Last Admin: 10/23/19 22:13 Dose: 10 mg Midodrine (Proamatine -) 10 mg PO TID-MID [facility] Last Admin: 10/26/19 17:50 Dose: Not Given Pantoprazole Sodium (Protonix -) 40 mg PO DAILY [facility] Last Admin: 10/26/19 10:12 Dose: Not Given Prednisone (Deltasone -) 20 mg PO DAILY [facility] Last Admin: 10/26/19 10:12 Dose: Not Given Silver Sulfadiazine (Silvadene -) 1 applic TP DAILY [facility] Last Admin: 10/26/19 11:13 Dose: 1 applic Valacyclovir HCl (Valtrex -) 500 mg PO DAILY [facility] Last Admin: 10/26/19 10:14 Dose: Not Given - Objective Vital Signs: Vital Signs Temperature 97 F L 10/26/19 18:43 Pulse Rate 71 10/26/19 18:43 Respiratory Rate 25 H 10/26/19 18:43 Blood Pressure 109/61 10/26/19 18:43 O2 Sat by Pulse Oximetry (%) 99 10/26/19 13:16 Labs: CBC, BMP 10/26/19 19:30 10/26/19 19:30 INR, PTT INR 0.99 (0.83-1.09) 10/07/19 02:55 Problem List - Problems (1) Hypotension Code(s): I95.9 - HYPOTENSION, UNSPECIFIED (2) Acute on chronic renal failure Code(s): N17.9 - ACUTE KIDNEY FAILURE, UNSPECIFIED; N18.9 - CHRONIC KIDNEY DISEASE, UNSPECIFIED (3) Acute on chronic systolic CHF (congestive heart failure) Code(s): I50.23 - ACUTE ON CHRONIC SYSTOLIC (CONGESTIVE) HEART FAILURE (4) Multiple myeloma Code(s): C90.00 - MULTIPLE MYELOMA NOT HAVING ACHIEVED REMISSION Qualifiers: Multiple myeloma remission status: not in remission Qualified Code(s): C90.00 - Multiple myeloma not having achieved remission (5) HLD (hyperlipidemia) Code(s): E78.5 - HYPERLIPIDEMIA, UNSPECIFIED Qualifiers: Hyperlipidemia type: unspecified Qualified Code(s): E78.5 - Hyperlipidemia , unspecified (6) Hypothyroidism Code(s): E03.9 - HYPOTHYROIDISM, UNSPECIFIED Qualifiers: Hypothyroidism type: acquired Qualified Code(s): E03.9 - Hypothyroidism, unspecified (7) CAD (coronary artery disease) Code(s): I25.10 - ATHSCL HEART DISEASE OF [place] CORONARY ARTERY W/O ANG PCTRS Qualifiers: (8) Depression Code(s): F32.9 - MAJOR DEPRESSIVE DISORDER, SINGLE EPISODE, UNSPECIFIED (9) History of heart artery stent Code(s): Z95.5 - PRESENCE OF CORONARY ANGIOPLASTY IMPLANT AND GRAFT (10) Diarrhea Code(s): R19.7 - DIARRHEA, UNSPECIFIED Qualifiers: Diarrhea type: unspecified type Qualified Code(s): R19.7 - Diarrhea, unspecified (11) UTI (urinary tract infection) Code(s): N39.0 - URINARY TRACT INFECTION, SITE NOT SPECIFIED (12) Elevated troponin Code(s): R74.8 - ABNORMAL LEVELS OF OTHER SERUM ENZYMES
[2019-10-27 06:00] LABS: BASO % 1.2 % (0-2.0); HEMATOCRIT 30.9 % (32.4-45.2); HEMOGLOBIN 9.9 GM/dL (10.7-15.3); LYMPH % 1.4 % (8-40); MCH 32.3 pg (25.7-33.7); MCHC 32.1 g/dl (32.0-36.0); MEAN CELL VOLUME 100.6 fl (80-96); MEAN PLT VOLUME 11.7 fl (7.5-11.1); MONO % 2.6 % (3.8-10.2); NEUT % 94.8 % (42.8-82.8); PLATELET COUNT 37 K/MM3 (134-434); RBC 3.07 M/mm3 (3.60-5.2); RDW 23.5 % (11.6-15.6); WHITE BLOOD COUNT 5.5 K/mm3 (4.0-10.0)
[2019-10-27] MEDS: LEVOTHYROXINE NA 75 MCG TABLET (FP) PO SCH (06:08)
[2019-10-27 06:28] LABS: ALBUMIN 1.7 g/dl (3.4-5.0); BILIRUBIN,TOTAL 1.1 mg/dL (0.2-1); BLOOD UREA NITROGEN 67.5 mg/dL (7-18); CALCIUM 7.8 mg/dL (8.5-10.1); CREATININE 4.1 mg/dL (0.55-1.3); POTASSIUM 5.3 mmol/L (3.5-5.1); TOT PROT 6.1 g/dl (6.4-8.2)
[2019-10-27 08:50] LABS: ANISOCYTOSIS 2+; MACROCYTOSIS 2+; OVALOCYTE 1+; PLATELET ESTIMATE DECREASED; TARGET CELLS 2+
[2019-10-27] MEDS: AMIODARONE HCL 200 MG TABLET (FP) PO SCH ×2 (10:22→21:06)
[2019-10-27] MEDS: predniSONE 20 MG TABLET (UD) PO SCH (10:23)
[2019-10-27] MEDS: ASPIRIN COATED 81 MG TABLET.EC PO SCH (10:23)
[2019-10-27] MEDS: ESCITALOPRAM OXALATE 20 MG TABLET (FP) PO SCH (10:26)
[2019-10-27] MEDS: CLOPIDOGREL BISULFATE 75 MG TABLET (FP) PO SCH (10:27)
[2019-10-27] MEDS: MIDODRINE HCL 5 MG TABLET PO SCH ×2 (10:27→15:50)
[2019-10-27] MEDS: SILVER SULFADIAZINE 1% TOP CREAM 50 GM JAR TP SCH (10:28)
[2019-10-27] MEDS: PANTOPRAZOLE 40 MG TABLET (FP) PO SCH (10:28)
[2019-10-27] MEDS: ALLOPURINOL 100 MG TABLET (FP) PO SCH (10:29)
[2019-10-27] MEDS: valACYclovir HCL 500 MG TABLET (FP) PO SCH (10:29)
--- NOTE | 2019-10-27 11:36 | PN ---
Progress Note (short form) - Note Progress Note: PULMONARY Lethargic on BiPAP. Vital Signs Period Temp Pulse Resp BP Sys/Moss Pulse Ox Last 24 Hr 97 F-97.5 F 63-72 13-27 96-128/51-66 99-99 Gen: lethargic on BiPAP Heart: RRR Lung: decreased breath sounds at the bases Abd: soft, nontender Ext: + edema CBC, BMP 10/27/19 05:25 10/27/19 05:25 Active Medications Acetaminophen (Tylenol -) 650 mg PO Q6H PRN PRN Reason: FEVER Albuterol/Ipratropium (Duoneb -) 1 amp NEB Q4H PRN PRN Reason: SHORTNESS OF BREATH Last Admin: 10/26/19 23:00 Dose: 1 amp Allopurinol (Zyloprim -) 100 mg PO DAILY [facility] Last Admin: 10/27/19 10:29 Dose: Not Given Amiodarone HCl (Cordarone -) 200 mg PO BID [facility] Last Admin: 10/27/19 10:22 Dose: Not Given Aspirin (Ecotrin -) 81 mg PO DAILY [facility] Last Admin: 10/27/19 10:23 Dose: Not Given Atorvastatin Calcium (Lipitor -) 80 mg PO HS [facility] Last Admin: 10/26/19 22:09 Dose: Not Given Clopidogrel Bisulfate (Plavix -) 75 mg PO DAILY [facility] Last Admin: 10/27/19 10:27 Dose: Not Given Escitalopram Oxalate (Lexapro -) 20 mg PO DAILY [facility] Last Admin: 10/27/19 10:26 Dose: Not Given Levothyroxine Sodium (Synthroid -) 75 mcg PO DAILY@0700 [facility] Last Admin: 10/27/19 06:08 Dose: Not Given Melatonin (Melatonin) 10 mg PO HS PRN PRN Reason: INSOMNIA Last Admin: 10/23/19 22:13 Dose: 10 mg Midodrine (Proamatine -) 10 mg PO TID-MID [facility] Last Admin: 10/27/19 10:27 Dose: Not Given Pantoprazole Sodium (Protonix -) 40 mg PO DAILY [facility] Last Admin: 10/27/19 10:28 Dose: Not Given Prednisone (Deltasone -) 20 mg PO DAILY [facility] Last Admin: 10/27/19 10:23 Dose: Not Given Silver Sulfadiazine (Silvadene -) 1 applic TP DAILY [facility] Last Admin: 10/27/19 10:28 Dose: 1 applic Valacyclovir HCl (Valtrex -) 500 mg PO DAILY [facility] Last Admin: 10/27/19 10:29 Dose: Not Given A/P Acute on Chronic Systolic Heart Failure Cardiogenic Shock resolving Acute on Chronic Renal Failure requiring HD CAD Acute NSTEMI Paroxysmal Atrial Fibrillation Pneumonia Asthma Multiple Myeloma HTN Hyperlipidemia Hypothyroidism Anemia Hyponatremia - HD per renal - monitor urine output, creatinine - daily weights - rate control - monitor H/H - completed antibiotics - O2 to keep SpO2 >90% - inhaled bronchodilators as needed - BiPAP to assist in work of breathing - taper off prednisone - DVT prophylaxis - agree with pt for conservative management as poor overall prognosis - recommend comfort measures
--- NOTE | 2019-10-27 12:21 | PN ---
Progress Note, Physician History of Present Illness: lethargic on bipap - Current Medication List Current Medications: Active Medications Acetaminophen (Tylenol -) 650 mg PO Q6H PRN PRN Reason: FEVER Albuterol/Ipratropium (Duoneb -) 1 amp NEB Q4H PRN PRN Reason: SHORTNESS OF BREATH Last Admin: 10/26/19 23:00 Dose: 1 amp Allopurinol (Zyloprim -) 100 mg PO DAILY [facility] Last Admin: 10/27/19 10:29 Dose: Not Given Amiodarone HCl (Cordarone -) 200 mg PO BID [facility] Last Admin: 10/27/19 10:22 Dose: Not Given Aspirin (Ecotrin -) 81 mg PO DAILY [facility] Last Admin: 10/27/19 10:23 Dose: Not Given Atorvastatin Calcium (Lipitor -) 80 mg PO HS [facility] Last Admin: 10/26/19 22:09 Dose: Not Given Clopidogrel Bisulfate (Plavix -) 75 mg PO DAILY [facility] Last Admin: 10/27/19 10:27 Dose: Not Given Escitalopram Oxalate (Lexapro -) 20 mg PO DAILY [facility] Last Admin: 10/27/19 10:26 Dose: Not Given Levothyroxine Sodium (Synthroid -) 75 mcg PO DAILY@0700 [facility] Last Admin: 10/27/19 06:08 Dose: Not Given Melatonin (Melatonin) 10 mg PO HS PRN PRN Reason: INSOMNIA Last Admin: 10/23/19 22:13 Dose: 10 mg Midodrine (Proamatine -) 10 mg PO TID-MID [facility] Last Admin: 10/27/19 10:27 Dose: Not Given Pantoprazole Sodium (Protonix -) 40 mg PO DAILY [facility] Last Admin: 10/27/19 10:28 Dose: Not Given Prednisone (Deltasone -) 20 mg PO DAILY [facility] Last Admin: 10/27/19 10:23 Dose: Not Given Silver Sulfadiazine (Silvadene -) 1 applic TP DAILY [facility] Last Admin: 10/27/19 10:28 Dose: 1 applic Valacyclovir HCl (Valtrex -) 500 mg PO DAILY [facility] Last Admin: 10/27/19 10:29 Dose: Not Given - Objective Vital Signs: Vital Signs Temperature 97 F L 10/26/19 18:43 Pulse Rate 64 10/27/19 08:00 Respiratory Rate 20 10/27/19 08:00 Blood Pressure 98/56 L 10/27/19 08:00 O2 Sat by Pulse Oximetry (%) 100 10/27/19 09:00 Constitutional: Yes: Other Cardiovascular: Yes: S1, S2 Respiratory: Yes: On BiPap Neurological: Yes: Other Labs: CBC, BMP 10/27/19 05:25 10/27/19 05:25 INR, PTT INR 0.99 (0.83-1.09) 10/07/19 02:55 Assessment/Plan Problem List - Problems (1) Anasarca Code(s): R60.1 - GENERALIZED EDEMA (2) Fluid overload Code(s): E87.70 - FLUID OVERLOAD, UNSPECIFIED (3) Hypoxia Code(s): R09.02 - HYPOXEMIA (4) Weakness Code(s): R53.1 - WEAKNESS (5) ASHD (arteriosclerotic heart disease) Code(s): I25.10 - ATHSCL HEART DISEASE OF [place] CORONARY ARTERY W/O ANG PCTRS (6) Acute exacerbation of CHF (congestive heart failure) Code(s): I50.9 - HEART FAILURE, UNSPECIFIED (7) Acute on chronic systolic CHF (congestive heart failure) Code(s): I50.23 - ACUTE ON CHRONIC SYSTOLIC (CONGESTIVE) HEART FAILURE (8) Adult onset hypothyroidism Code(s): E03.8 - OTHER SPECIFIED HYPOTHYROIDISM (9) Anemia Code(s): D64.9 - ANEMIA, UNSPECIFIED (10) CKD (chronic kidney disease) Code(s): N18.9 - CHRONIC KIDNEY DISEASE, UNSPECIFIED (11) Elevated troponin Code(s): R74.8 - ABNORMAL LEVELS OF OTHER SERUM ENZYMES (12) HLD (hyperlipidemia) Code(s): E78.5 - HYPERLIPIDEMIA, UNSPECIFIED Qualifiers: Hyperlipidemia type: unspecified Qualified Code(s): E78.5 - Hyperlipidemia , unspecified (13) HTN (hypertension) Code(s): I10 - ESSENTIAL (PRIMARY) HYPERTENSION Qualifiers: Hypertension type: unspecified Qualified Code(s): I10 - Essential (primary ) hypertension (14) History of heart artery stent Code(s): Z95.5 - PRESENCE OF CORONARY ANGIOPLASTY IMPLANT AND GRAFT (15) Multiple myeloma Code(s): C90.00 - MULTIPLE MYELOMA NOT HAVING ACHIEVED REMISSION Qualifiers: Multiple myeloma remission status: not in remission Qualified Code(s): C90.00 - Multiple myeloma not having achieved remission uti hypotension Assessment/Plan completed abx resp support rest as per the team poor prognosis
--- NOTE | 2019-10-27 13:04 | PN ---
Physical Exam: SUBJECTIVE: Patient seen and examined at bed side lethargic fatigue minimally responisve OBJECTIVE: Vital Signs Period Temp Pulse Resp BP Sys/Moss Pulse Ox Last 24 Hr 97 F 63-72 13-27 96-128/51-66 99-100 Gen: lethargic on BiPAP Heart: RRR Lung: decreased breath sounds at the bases Abd: soft, nontender Ext: +2 edema Laboratory Results - last 24 hr 10/26/19 10/26/19 10/26/19 19:30 19:30 19:30 WBC 6.7 RBC 3.25 L Hgb 10.4 L Hct 32.9 MCV 101.4 H MCH 32.1 MCHC 31.7 L RDW 23.9 H Plt Count 41 L D MPV 11.0 Absolute Neuts (auto) 6.4 Total Counted 100 Neutrophils % 96.3 H Neutrophils % (Manual) 89.0 H Band Neutrophils % 1.0 Lymphocytes % 1.4 L D Lymphocytes % (Manual) 2.0 L D Monocytes % 2.0 L Monocytes % (Manual) 7 D Eosinophils % 0.1 D Eosinophils % (Manual) Basophils % 0.2 Basophils % (Manual) Myelocytes % (Man) Promyelocytes % (Man) Blast Cells % (Manual) Nucleated RBC % 1 H Metamyelocytes Hypochromia 1+ Platelet Estimate Decreased Platelet Comment No clumping noted Polychromasia 1+ Poikilocytosis Anisocytosis 3+ Microcytosis Macrocytosis 1+ Target Cells Ovalocytes 1+ Acanthocytes (Spur) Schistocytes Sodium 143 Potassium 5.1 Chloride 106 Carbon Dioxide 26 Anion Gap 11 BUN 63.9 H Creatinine 4.0 H Est GFR (CKD-EPI)AfAm 11.94 Est GFR (CKD-EPI)NonAf 10.30 Random Glucose 82 Calcium 7.9 L Total Bilirubin 1.1 H AST 103 H ALT 97 H Alkaline Phosphatase 159 H Total Protein 6.2 L Albumin 1.7 L Blood Type B POSITIVE Antibody Screen Negative Crossmatch See Detail 10/27/19 10/27/19 05:25 05:25 WBC 5.5 RBC 3.07 L Hgb 9.9 L Hct 30.9 L MCV 100.6 H MCH 32.3 MCHC 32.1 RDW 23.5 H Plt Count 37 L MPV 11.7 H Absolute Neuts (auto) 5.2 Total Counted Neutrophils % 94.8 H Neutrophils % (Manual) 99.0 H Band Neutrophils % 1.0 Lymphocytes % 1.4 L Lymphocytes % (Manual) 0.0 L Monocytes % 2.6 L Monocytes % (Manual) 0 L D Eosinophils % 0.0 D Eosinophils % (Manual) 0.0 Basophils % 1.2 D Basophils % (Manual) 0.0 Myelocytes % (Man) 0 D Promyelocytes % (Man) 0 Blast Cells % (Manual) 0 Nucleated RBC % 0 Metamyelocytes 0 Hypochromia 1+ Platelet Estimate Decreased Platelet Comment Polychromasia Poikilocytosis 2+ Anisocytosis 2+ Microcytosis 1+ Macrocytosis 2+ Target Cells 2+ Ovalocytes 1+ Acanthocytes (Spur) 1+ Schistocytes 1+ Sodium 143 Potassium 5.3 H Chloride 106 Carbon Dioxide 26 Anion Gap 11 BUN 67.5 H Creatinine 4.1 H Est GFR (CKD-EPI)AfAm 11.59 Est GFR (CKD-EPI)NonAf 10.00 Random Glucose 85 Calcium 7.8 L Total Bilirubin 1.1 H AST 97 H ALT 97 H Alkaline Phosphatase 149 H Total Protein 6.1 L Albumin 1.7 L Blood Type Antibody Screen Crossmatch Active Medications Generic Name Dose Route Start Last Admin Trade Name Freq PRN Reason Stop Dose Admin Acetaminophen 650 mg 10/21/19 18:26 Tylenol - PO Q6H PRN FEVER Albuterol/Ipratropium 1 amp 10/21/19 18:26 10/26/19 23:00 Duoneb - NEB 1 amp Q4H PRN Administration SHORTNESS OF BREATH Allopurinol 100 mg 10/22/19 10:00 10/27/19 10:29 Zyloprim - PO Not Given DAILY [facility] Amiodarone HCl 200 mg 10/21/19 22:00 10/27/19 10:22 Cordarone - PO Not Given BID [facility] Aspirin 81 mg 10/22/19 10:00 10/27/19 10:23 Ecotrin - PO Not Given DAILY [facility] Atorvastatin Calcium 80 mg 10/21/19 22:00 10/26/19 22:09 Lipitor - PO Not Given HS [facility] Clopidogrel Bisulfate 75 mg 10/22/19 10:00 10/27/19 10:27 Plavix - PO Not Given DAILY [facility] Escitalopram Oxalate 20 mg 10/24/19 10:00 10/27/19 10:26 Lexapro - PO Not Given DAILY [facility] Levothyroxine Sodium 75 mcg 10/22/19 07:00 10/27/19 06:08 Synthroid - PO Not Given DAILY@0700 [facility] Melatonin 10 mg 10/23/19 02:13 10/23/19 22:13 Melatonin PO 10 mg HS PRN Administration INSOMNIA Midodrine 10 mg 10/22/19 10:00 10/27/19 10:27 Proamatine - PO Not Given TID-MID [facility] Pantoprazole Sodium 40 mg 10/22/19 10:00 10/27/19 10:28 Protonix - PO Not Given DAILY [facility] Prednisone 20 mg 10/24/19 10:00 10/27/19 10:23 Deltasone - PO Not Given DAILY [facility] Silver Sulfadiazine 1 applic 10/22/19 10:00 10/27/19 10:28 Silvadene - TP 1 applic DAILY [facility] Administration Valacyclovir HCl 500 mg 10/22/19 10:00 10/27/19 10:29 Valtrex - PO Not Given DAILY [facility] CBC, BMP 10/27/19 05:25 10/27/19 05:25 ASSESSMENT/PLAN: Multiple Myeloma Amyloid CHF Anemia Fever LLL atelectasis vs infiltrate Renal failure Hypotension CHF Active GI bleed hyperkalmia Transfuse PRBCs as needed , maintain Hgb > 9 Patient had refused HD access, dialysis, meds, . she is DNR/DNI supportive care poor prognosis Visit type - Emergency Visit Emergency Visit: Yes ED Registration Date: 09/20/19 Care time: The patient presented to the Emergency Department on the above date and was hospitalized for further evaluation of their emergent condition. - New Patient This patient is new to me today: Yes Date on this admission: 10/27/19 - Critical Care Critical Care patient: No - Discharge Referral Referred to [facility] No ATTENDING PHYSICIAN STATEMENT I saw and evaluated the patient. I reviewed the resident's note and discussed the case with the resident. I agree with the resident's findings and plan as documented. SUBJECTIVE: OBJECTIVE: ASSESSMENT AND PLAN:
[2019-10-27] MEDS ORDERED: SODIUM POLYSTYRENE SULFONATE 15 GM/60 ML BOTTLE RC ONE (13:17)
--- NOTE | 2019-10-27 13:18 | PN ---
Progress Note, Physician History of Present Illness: Pt seen and examined at bedside. She is lethargic. A central line was placed overnight. - Current Medication List Current Medications: Active Medications Acetaminophen (Tylenol -) 650 mg PO Q6H PRN PRN Reason: FEVER Albuterol/Ipratropium (Duoneb -) 1 amp NEB Q4H PRN PRN Reason: SHORTNESS OF BREATH Last Admin: 10/26/19 23:00 Dose: 1 amp Allopurinol (Zyloprim -) 100 mg PO DAILY [facility] Last Admin: 10/27/19 10:29 Dose: Not Given Amiodarone HCl (Cordarone -) 200 mg PO BID [facility] Last Admin: 10/27/19 10:22 Dose: Not Given Aspirin (Ecotrin -) 81 mg PO DAILY [facility] Last Admin: 10/27/19 10:23 Dose: Not Given Atorvastatin Calcium (Lipitor -) 80 mg PO HS [facility] Last Admin: 10/26/19 22:09 Dose: Not Given Clopidogrel Bisulfate (Plavix -) 75 mg PO DAILY [facility] Last Admin: 10/27/19 10:27 Dose: Not Given Escitalopram Oxalate (Lexapro -) 20 mg PO DAILY [facility] Last Admin: 10/27/19 10:26 Dose: Not Given Levothyroxine Sodium (Synthroid -) 75 mcg PO DAILY@0700 [facility] Last Admin: 10/27/19 06:08 Dose: Not Given Melatonin (Melatonin) 10 mg PO HS PRN PRN Reason: INSOMNIA Last Admin: 10/23/19 22:13 Dose: 10 mg Midodrine (Proamatine -) 10 mg PO TID-MID [facility] Last Admin: 10/27/19 10:27 Dose: Not Given Pantoprazole Sodium (Protonix -) 40 mg PO DAILY [facility] Last Admin: 10/27/19 10:28 Dose: Not Given Prednisone (Deltasone -) 20 mg PO DAILY [facility] Last Admin: 10/27/19 10:23 Dose: Not Given Silver Sulfadiazine (Silvadene -) 1 applic TP DAILY [facility] Last Admin: 10/27/19 10:28 Dose: 1 applic Valacyclovir HCl (Valtrex -) 500 mg PO DAILY [facility] Last Admin: 10/27/19 10:29 Dose: Not Given - Objective Vital Signs: Vital Signs Temperature 97 F L 10/26/19 18:43 Pulse Rate 64 10/27/19 08:00 Respiratory Rate 20 10/27/19 08:00 Blood Pressure 98/56 L 10/27/19 08:00 O2 Sat by Pulse Oximetry (%) 100 10/27/19 09:00 Constitutional: Yes: Mild Distress Eyes: Yes: Conjunctiva Clear Cardiovascular: Yes: S1, S2 Respiratory: Yes: On BiPap Gastrointestinal: Yes: Soft Genitourinary: Yes: Incontinence Musculoskeletal: Yes: WNL Edema: Yes Edema: LLE: 1+, RLE: 1+ Neurological: Yes: Lethargy Labs: CBC, BMP 10/27/19 05:25 10/27/19 05:25 INR, PTT INR 0.99 (0.83-1.09) 10/07/19 02:55 - ....Imaging Chest X-ray: Report Reviewed Problem List - Problems (1) Fluid overload Code(s): E87.70 - FLUID OVERLOAD, UNSPECIFIED (2) CKD (chronic kidney disease) Code(s): N18.9 - CHRONIC KIDNEY DISEASE, UNSPECIFIED Assessment/Plan Current Medications Generic Name Dose Route Start Last Admin Trade Name Freq PRN Reason Stop Dose Admin Acetaminophen 650 mg 10/21/19 18:26 Tylenol - PO Q6H PRN FEVER Albuterol/Ipratropium 1 amp 10/21/19 18:26 10/26/19 23:00 Duoneb - NEB 1 amp Q4H PRN Administration SHORTNESS OF BREATH Allopurinol 100 mg 10/22/19 10:00 10/27/19 10:29 Zyloprim - PO Not Given DAILY [facility] Amiodarone HCl 200 mg 10/21/19 22:00 10/27/19 10:22 Cordarone - PO Not Given BID [facility] Aspirin 81 mg 10/22/19 10:00 10/27/19 10:23 Ecotrin - PO Not Given DAILY [facility] Atorvastatin Calcium 80 mg 10/21/19 22:00 10/26/19 22:09 Lipitor - PO Not Given HS [facility] Clopidogrel Bisulfate 75 mg 10/22/19 10:00 10/27/19 10:27 Plavix - PO Not Given DAILY [facility] Escitalopram Oxalate 20 mg 10/24/19 10:00 10/27/19 10:26 Lexapro - PO Not Given DAILY [facility] Levothyroxine Sodium 75 mcg 10/22/19 07:00 10/27/19 06:08 Synthroid - PO Not Given DAILY@0700 [facility] Melatonin 10 mg 10/23/19 02:13 10/23/19 22:13 Melatonin PO 10 mg HS PRN Administration INSOMNIA Midodrine 10 mg 10/22/19 10:00 10/27/19 10:27 Proamatine - PO Not Given TID-MID [facility] Pantoprazole Sodium 40 mg 10/22/19 10:00 10/27/19 10:28 Protonix - PO Not Given DAILY [facility] Prednisone 20 mg 10/24/19 10:00 10/27/19 10:23 Deltasone - PO Not Given DAILY [facility] Silver Sulfadiazine 1 applic 10/22/19 10:00 10/27/19 10:28 Silvadene - TP 1 applic DAILY [facility] Administration Valacyclovir HCl 500 mg 10/22/19 10:00 10/27/19 10:29 Valtrex - PO Not Given DAILY [facility] Impression 1. proteinuria 2. multiple myeloma 3. amyloid 4. dizziness 5. hypotension 6. HLD 7. hypothyroidism 8. anemia 9. CKD 10. fluid overload 11. hypotension 12. hyperkalemia 13. nstemi 14. DEBBIE 15. resp failure requiring bipap Plan - potassium elevated - pt does not want HD - can give kayexylate per rectum - will need to clarify GOC, renal function and electrolytes will be difficult to control with out dialysis therapy - palliative care follow up - prognosis is poor
--- NOTE | 2019-10-27 18:35 | PN ---
Progress Note (short form) - Note Progress Note: Patient seen and examined. On BiPAP. Not responsive Cor: RSR, No murmurs, No gallops Lungs: decreased. Abd: Soft, Normal bowel sounds, Ext:3+ edema 10/27/19 05:25 10/27/19 05:25 Current Medications Acetaminophen (Tylenol -) 650 mg PO Q6H PRN PRN Reason: FEVER Albuterol/Ipratropium (Duoneb -) 1 amp NEB Q4H PRN PRN Reason: SHORTNESS OF BREATH Last Admin: 10/26/19 23:00 Dose: 1 amp Allopurinol (Zyloprim -) 100 mg PO DAILY [facility] Last Admin: 10/27/19 10:29 Dose: Not Given Amiodarone HCl (Cordarone -) 200 mg PO BID [facility] Last Admin: 10/27/19 10:22 Dose: Not Given Aspirin (Ecotrin -) 81 mg PO DAILY [facility] Last Admin: 10/27/19 10:23 Dose: Not Given Atorvastatin Calcium (Lipitor -) 80 mg PO HS [facility] Last Admin: 10/26/19 22:09 Dose: Not Given Clopidogrel Bisulfate (Plavix -) 75 mg PO DAILY [facility] Last Admin: 10/27/19 10:27 Dose: Not Given Escitalopram Oxalate (Lexapro -) 20 mg PO DAILY [facility] Last Admin: 10/27/19 10:26 Dose: Not Given Levothyroxine Sodium (Synthroid -) 75 mcg PO DAILY@0700 [facility] Last Admin: 10/27/19 06:08 Dose: Not Given Melatonin (Melatonin) 10 mg PO HS PRN PRN Reason: INSOMNIA Last Admin: 10/23/19 22:13 Dose: 10 mg Midodrine (Proamatine -) 10 mg PO TID-MID [facility] Last Admin: 10/27/19 15:50 Dose: Not Given Pantoprazole Sodium (Protonix -) 40 mg PO DAILY [facility] Last Admin: 10/27/19 10:28 Dose: Not Given Prednisone (Deltasone -) 20 mg PO DAILY [facility] Last Admin: 10/27/19 10:23 Dose: Not Given Silver Sulfadiazine (Silvadene -) 1 applic TP DAILY [facility] Last Admin: 10/27/19 10:28 Dose: 1 applic Valacyclovir HCl (Valtrex -) 500 mg PO DAILY [facility] Last Admin: 10/27/19 10:29 Dose: Not Given A/P Multiple Myeloma Amyloid CHF Anemia Fever LLL atelectasis vs infiltrate Renal failure Hypotension CHF Active GI bleed Transfuse PRBCs Patient had refused HD access, dialysis, meds, blood draws. she is DNR/DNI Dr. Stuart discussed current status with sons Derrick and Ministerio. Notified them of her critical status. Discussed with nursing staff Left message for PMD
[2019-10-27 19:20] LABS: HEMATOCRIT 28.8 % (32.4-45.2); HEMOGLOBIN 9.1 GM/dL (10.7-15.3); MCH 32.1 pg (25.7-33.7); MCHC 31.7 g/dl (32.0-36.0); MEAN CELL VOLUME 101.4 fl (80-96); RBC 2.84 M/mm3 (3.60-5.2); RDW 24.6 % (11.6-15.6); WHITE BLOOD COUNT 4.2 K/mm3 (4.0-10.0)
[2019-10-27 19:26] LABS: PLATELET COUNT 27 K/MM3 (134-434)
[2019-10-27] MEDS: ATORVASTATIN CA 80 MG TABLET (FP) PO SCH (21:06)
--- NOTE | 2019-10-27 21:21 | PN ---
Progress Note, Physician History of Present Illness: Pt on BIPAP Pt minimally responsive - Current Medication List Current Medications: Active Medications Acetaminophen (Tylenol -) 650 mg PO Q6H PRN PRN Reason: FEVER Albuterol/Ipratropium (Duoneb -) 1 amp NEB Q4H PRN PRN Reason: SHORTNESS OF BREATH Last Admin: 10/26/19 23:00 Dose: 1 amp Allopurinol (Zyloprim -) 100 mg PO DAILY [facility] Last Admin: 10/27/19 10:29 Dose: Not Given Amiodarone HCl (Cordarone -) 200 mg PO BID [facility] Last Admin: 10/27/19 21:06 Dose: Not Given Aspirin (Ecotrin -) 81 mg PO DAILY [facility] Last Admin: 10/27/19 10:23 Dose: Not Given Atorvastatin Calcium (Lipitor -) 80 mg PO HS [facility] Last Admin: 10/27/19 21:06 Dose: Not Given Clopidogrel Bisulfate (Plavix -) 75 mg PO DAILY [facility] Last Admin: 10/27/19 10:27 Dose: Not Given Escitalopram Oxalate (Lexapro -) 20 mg PO DAILY [facility] Last Admin: 10/27/19 10:26 Dose: Not Given Levothyroxine Sodium (Synthroid -) 75 mcg PO DAILY@0700 [facility] Last Admin: 10/27/19 06:08 Dose: Not Given Melatonin (Melatonin) 10 mg PO HS PRN PRN Reason: INSOMNIA Last Admin: 10/23/19 22:13 Dose: 10 mg Midodrine (Proamatine -) 10 mg PO TID-MID [facility] Last Admin: 10/27/19 15:50 Dose: Not Given Pantoprazole Sodium (Protonix -) 40 mg PO DAILY [facility] Last Admin: 10/27/19 10:28 Dose: Not Given Prednisone (Deltasone -) 20 mg PO DAILY [facility] Last Admin: 10/27/19 10:23 Dose: Not Given Silver Sulfadiazine (Silvadene -) 1 applic TP DAILY [facility] Last Admin: 10/27/19 10:28 Dose: 1 applic Valacyclovir HCl (Valtrex -) 500 mg PO DAILY [facility] Last Admin: 10/27/19 10:29 Dose: Not Given - Objective Vital Signs: Vital Signs Temperature 97 F L 10/26/19 18:43 Pulse Rate 72 10/27/19 20:02 Respiratory Rate 22 H 10/27/19 20:02 Blood Pressure 92/52 L 10/27/19 20:02 O2 Sat by Pulse Oximetry (%) 98 10/27/19 20:32 Cardiovascular: Yes: WNL, Regular Rate and Rhythm Respiratory: Yes: Diminished Gastrointestinal: Yes: WNL, Normal Bowel Sounds, Soft Edema: Yes Edema: LLE: 1+, RLE: 1+ Labs: CBC, BMP 10/27/19 19:00 10/27/19 05:25 INR, PTT INR 0.99 (0.83-1.09) 10/07/19 02:55 Problem List - Problems (1) Pancytopenia Assessment/Plan: Plt count decreasing w/ active rectal bleed As per heme Cont prednisone for now Code(s): D61.818 - OTHER PANCYTOPENIA (2) Hypotension Assessment/Plan: Cont midodrine Prednisone being tapered Code(s): I95.9 - HYPOTENSION, UNSPECIFIED (3) Acute on chronic renal failure Assessment/Plan: Pt has been refusing dialysis Gentle hydration due to no po intake Code(s): N17.9 - ACUTE KIDNEY FAILURE, UNSPECIFIED; N18.9 - CHRONIC KIDNEY DISEASE, UNSPECIFIED (4) Acute on chronic systolic CHF (congestive heart failure) Assessment/Plan: Lasix prn Monitor electrolytes Will need to restart entresto once BP more stable Code(s): I50.23 - ACUTE ON CHRONIC SYSTOLIC (CONGESTIVE) HEART FAILURE (5) Multiple myeloma Assessment/Plan: Poor prognosis Family is aware Code(s): C90.00 - MULTIPLE MYELOMA NOT HAVING ACHIEVED REMISSION Qualifiers: Multiple myeloma remission status: not in remission Qualified Code(s): C90.00 - Multiple myeloma not having achieved remission (6) Hypothyroidism Code(s): E03.9 - HYPOTHYROIDISM, UNSPECIFIED Qualifiers: Hypothyroidism type: acquired Qualified Code(s): E03.9 - Hypothyroidism, unspecified (7) CAD (coronary artery disease) Code(s): I25.10 - ATHSCL HEART DISEASE OF [place] CORONARY ARTERY W/O ANG PCTRS Qualifiers: (8) Depression Assessment/Plan: Lexapro dose increased Code(s): F32.9 - MAJOR DEPRESSIVE DISORDER, SINGLE EPISODE, UNSPECIFIED (9) History of heart artery stent Code(s): Z95.5 - PRESENCE OF CORONARY ANGIOPLASTY IMPLANT AND GRAFT (10) Diarrhea Assessment/Plan: Now resolved Cause of dehydration/hypotension Code(s): R19.7 - DIARRHEA, UNSPECIFIED Qualifiers: Diarrhea type: unspecified type Qualified Code(s): R19.7 - Diarrhea, unspecified (11) UTI (urinary tract infection) Assessment/Plan: Due to strept agalactiae Now resolved Treated w/ IV meropenem Code(s): N39.0 - URINARY TRACT INFECTION, SITE NOT SPECIFIED (12) Elevated troponin Assessment/Plan: Troponin increased to 26 however it is now decreasing Cont to monitor Cont IV heparin/amiodarone Code(s): R74.8 - ABNORMAL LEVELS OF OTHER SERUM ENZYMES (13) HLD (hyperlipidemia) Assessment/Plan: DC lipitor due to increasing LFT's Code(s): E78.5 - HYPERLIPIDEMIA, UNSPECIFIED Qualifiers: Hyperlipidemia type: unspecified Qualified Code(s): E78.5 - Hyperlipidemia , unspecified
[2019-10-28] MEDS: MIDODRINE HCL 5 MG TABLET PO SCH ×4 (02:20→19:41)
[2019-10-28] MEDS: LEVOTHYROXINE NA 75 MCG TABLET (FP) PO SCH (06:13)
[2019-10-28 06:35] LABS: BASO % 0.3 % (0-2.0); EOS % 0.1 % (0-4.5); HEMATOCRIT 25.9 % (32.4-45.2); HEMOGLOBIN 8.4 GM/dL (10.7-15.3); LYMPH % 1.1 % (8-40); MCH 32.3 pg (25.7-33.7); MCHC 32.3 g/dl (32.0-36.0); MEAN PLT VOLUME 12.5 fl (7.5-11.1); MONO % 1.6 % (3.8-10.2); NEUT % 96.9 % (42.8-82.8); RBC 2.59 M/mm3 (3.60-5.2); RDW 23.6 % (11.6-15.6); WHITE BLOOD COUNT 3.4 K/mm3 (4.0-10.0)
[2019-10-28 07:00] LABS: ALBUMIN 1.4 g/dl (3.4-5.0); BLOOD UREA NITROGEN 75.3 mg/dL (7-18); CALCIUM 7.4 mg/dL (8.5-10.1); CREATININE 4.2 mg/dL (0.55-1.3); POTASSIUM 4.7 mmol/L (3.5-5.1); TOT PROT 5.4 g/dl (6.4-8.2)
[2019-10-28 07:21] LABS: PLATELET COUNT 28 K/MM3 (134-434)
[2019-10-28] MEDS: ASPIRIN COATED 81 MG TABLET.EC PO SCH (09:16)
[2019-10-28] MEDS: predniSONE 20 MG TABLET (UD) PO SCH (09:16)
[2019-10-28] MEDS: AMIODARONE HCL 200 MG TABLET (FP) PO SCH ×2 (09:16→21:03)
[2019-10-28] MEDS: ESCITALOPRAM OXALATE 20 MG TABLET (FP) PO SCH (09:17)
[2019-10-28] MEDS: CLOPIDOGREL BISULFATE 75 MG TABLET (FP) PO SCH (09:17)
[2019-10-28] MEDS: ALLOPURINOL 100 MG TABLET (FP) PO SCH (09:18)
[2019-10-28] MEDS: valACYclovir HCL 500 MG TABLET (FP) PO SCH (09:18)
[2019-10-28] MEDS: PANTOPRAZOLE 40 MG TABLET (FP) PO SCH (09:18)
--- NOTE | 2019-10-28 09:52 | PN ---
Progress Note (short form) - Note Progress Note: Ethics Oncology MD has requested ethics evaluation om this patient with multiple critical medical problems including Multiple Myeloma, Amyloid, renal failure, respiratory failure and GI bleeding with significant thrombocytopenia. The patient is a DNR/DNI with an addition of no dialysis on her signed form. The part stating the patient's capacity at the time of the signing is not signed by the treating MD. The patient's HCP is her grandson Carlo and medical decisions are to be discussed with him. Re: Goals of Care discussions the patients health care proxy should use his substituted judgement and follow his grandmothers wishes for treatment. However if a decision regarding any treatment requesting by the treating MD's may help relieve her suffering or pain then he can act in her best interest and kofi that decision; for example an IV access site for medication. The patient's treating MD's appear to favor comfort care. If there is a need for a formal ethics meeting to discuss these issues then that can be arranged.
[2019-10-28 10:21] LABS: ANISOCYTOSIS 2+; MACROCYTOSIS 1+; PLATELET ESTIMATE DECREASED; TARGET CELLS 1+
[2019-10-28] MEDS: SILVER SULFADIAZINE 1% TOP CREAM 50 GM JAR TP SCH (11:02)
--- NOTE | 2019-10-28 12:22 | PN ---
Progress Note (short form) - Note Progress Note: Remains lethargic on NIPPV. DNR / DNI. Bloody BM. Intake & Output 10/25/19 10/26/19 10/27/19 10/28/19 23:59 23:59 23:59 23:59 Intake Total 0 0 0 Balance 0 0 0 Last Vital Signs Temp Pulse Resp BP Pulse Ox 98.9 F 70 16 91/50 L 98 10/28/19 06:00 10/28/19 06:00 10/28/19 06:00 10/28/19 06:00 10/28/19 11:38 Active Medications Acetaminophen (Tylenol -) 650 mg PO Q6H PRN PRN Reason: FEVER Albuterol/Ipratropium (Duoneb -) 1 amp NEB Q4H PRN PRN Reason: SHORTNESS OF BREATH Last Admin: 10/26/19 23:00 Dose: 1 amp Allopurinol (Zyloprim -) 100 mg PO DAILY [facility] Last Admin: 10/28/19 09:18 Dose: Not Given Amiodarone HCl (Cordarone -) 200 mg PO BID [facility] Last Admin: 10/28/19 09:16 Dose: Not Given Aspirin (Ecotrin -) 81 mg PO DAILY [facility] Last Admin: 10/28/19 09:16 Dose: Not Given Atorvastatin Calcium (Lipitor -) 80 mg PO HS [facility] Last Admin: 10/27/19 21:06 Dose: Not Given Escitalopram Oxalate (Lexapro -) 20 mg PO DAILY [facility] Last Admin: 10/28/19 09:17 Dose: Not Given Levothyroxine Sodium (Synthroid -) 75 mcg PO DAILY@0700 [facility] Last Admin: 10/28/19 06:13 Dose: Not Given Melatonin (Melatonin) 10 mg PO HS PRN PRN Reason: INSOMNIA Last Admin: 10/23/19 22:13 Dose: 10 mg Midodrine (Proamatine -) 10 mg PO TID-MID [facility] Last Admin: 10/28/19 09:17 Dose: Not Given Pantoprazole Sodium (Protonix -) 40 mg PO DAILY [facility] Last Admin: 10/28/19 09:18 Dose: Not Given Prednisone (Deltasone -) 20 mg PO DAILY [facility] Last Admin: 10/28/19 09:16 Dose: Not Given Silver Sulfadiazine (Silvadene -) 1 applic TP DAILY [facility] Last Admin: 10/27/19 10:28 Dose: 1 applic Valacyclovir HCl (Valtrex -) 500 mg PO DAILY [facility] Last Admin: 10/28/19 09:18 Dose: Not Given Gen: lethargic on BiPAP Heart: RRR Lung: decreased breath sounds at the bases Abd: soft, nontender Ext: + edema Laboratory Results - last 24 hr 10/27/19 10/27/19 10/28/19 14:08 19:00 06:00 WBC 4.2 3.4 L RBC 2.84 L 2.59 L Hgb 9.1 L 8.4 L Hct 28.8 L 25.9 L MCV 101.4 H 100.0 H MCH 32.1 32.3 MCHC 31.7 L 32.3 RDW 24.6 H 23.6 H Plt Count 27 L* D 28 L* MPV 11.0 12.5 H D Absolute Neuts (auto) 3.3 Neutrophils % 96.9 H Neutrophils % (Manual) 83.8 H Band Neutrophils % 5.1 Lymphocytes % 1.1 L D Lymphocytes % (Manual) 0.0 L Monocytes % 1.6 L Monocytes % (Manual) 3 L D Eosinophils % 0.1 D Eosinophils % (Manual) 0.0 Basophils % 0.3 Basophils % (Manual) 0.0 Myelocytes % (Man) 3 H D Promyelocytes % (Man) 0 Blast Cells % (Manual) 0 Nucleated RBC % 1 H Metamyelocytes 4 H D Hypochromia 0 Platelet Estimate Decreased Polychromasia 0 Poikilocytosis 1+ Anisocytosis 2+ Microcytosis 1+ Macrocytosis 1+ Target Cells 1+ Judy Cells 1+ Sodium Potassium Chloride Carbon Dioxide Anion Gap BUN Creatinine Est GFR (CKD-EPI)AfAm Est GFR (CKD-EPI)NonAf POC Glucometer 84 Random Glucose Calcium Total Bilirubin AST ALT Alkaline Phosphatase Total Protein Albumin 10/28/19 06:00 WBC RBC Hgb Hct MCV MCH MCHC RDW Plt Count MPV Absolute Neuts (auto) Neutrophils % Neutrophils % (Manual) Band Neutrophils % Lymphocytes % Lymphocytes % (Manual) Monocytes % Monocytes % (Manual) Eosinophils % Eosinophils % (Manual) Basophils % Basophils % (Manual) Myelocytes % (Man) Promyelocytes % (Man) Blast Cells % (Manual) Nucleated RBC % Metamyelocytes Hypochromia Platelet Estimate Polychromasia Poikilocytosis Anisocytosis Microcytosis Macrocytosis Target Cells [place] Cells Sodium 144 Potassium 4.7 Chloride 109 H Carbon Dioxide 25 Anion Gap 11 BUN 75.3 H Creatinine 4.2 H Est GFR (CKD-EPI)AfAm 11.26 Est GFR (CKD-EPI)NonAf 9.71 POC Glucometer Random Glucose 135 H Calcium 7.4 L Total Bilirubin 1.0 AST 94 H ALT 88 H Alkaline Phosphatase 128 H Total Protein 5.4 L Albumin 1.4 L A/P Acute on Chronic Systolic Heart Failure Cardiogenic Shock resolving Acute on Chronic Renal Failure requiring HD CAD Acute NSTEMI Paroxysmal Atrial Fibrillation Pneumonia Asthma Multiple Myeloma HTN Hyperlipidemia Hypothyroidism Anemia Hyponatremia - GOC being determined - rate control - completed antibiotics - NIPPV support - inhaled bronchodilators as needed - Management should focus on comfort and supportive measures - DNR / DNI Dr Bacon
--- NOTE | 2019-10-28 14:32 | PN ---
Progress Note, Physician History of Present Illness: Pt seen and examined at bedside. She is lathergic. SHe remains in the ICU. - Current Medication List Current Medications: Active Medications Acetaminophen (Tylenol -) 650 mg PO Q6H PRN PRN Reason: FEVER Albuterol/Ipratropium (Duoneb -) 1 amp NEB Q4H PRN PRN Reason: SHORTNESS OF BREATH Last Admin: 10/26/19 23:00 Dose: 1 amp Allopurinol (Zyloprim -) 100 mg PO DAILY [facility] Last Admin: 10/28/19 09:18 Dose: Not Given Amiodarone HCl (Cordarone -) 200 mg PO BID [facility] Last Admin: 10/28/19 09:16 Dose: Not Given Aspirin (Ecotrin -) 81 mg PO DAILY [facility] Last Admin: 10/28/19 09:16 Dose: Not Given Atorvastatin Calcium (Lipitor -) 80 mg PO HS [facility] Last Admin: 10/27/19 21:06 Dose: Not Given Escitalopram Oxalate (Lexapro -) 20 mg PO DAILY [facility] Last Admin: 10/28/19 09:17 Dose: Not Given Levothyroxine Sodium (Synthroid -) 75 mcg PO DAILY@0700 [facility] Last Admin: 10/28/19 06:13 Dose: Not Given Melatonin (Melatonin) 10 mg PO HS PRN PRN Reason: INSOMNIA Last Admin: 10/23/19 22:13 Dose: 10 mg Midodrine (Proamatine -) 10 mg PO TID-MID [facility] Last Admin: 10/28/19 09:17 Dose: Not Given Pantoprazole Sodium (Protonix -) 40 mg PO DAILY [facility] Last Admin: 10/28/19 09:18 Dose: Not Given Prednisone (Deltasone -) 20 mg PO DAILY [facility] Last Admin: 10/28/19 09:16 Dose: Not Given Silver Sulfadiazine (Silvadene -) 1 applic TP DAILY [facility] Last Admin: 10/27/19 10:28 Dose: 1 applic Valacyclovir HCl (Valtrex -) 500 mg PO DAILY [facility] Last Admin: 10/28/19 09:18 Dose: Not Given - Objective Vital Signs: Vital Signs Temperature 99 F 10/28/19 08:00 Pulse Rate 74 10/28/19 12:00 Respiratory Rate 26 H 10/28/19 12:00 Blood Pressure 93/49 L 10/28/19 12:00 O2 Sat by Pulse Oximetry (%) 98 10/28/19 11:38 Constitutional: Yes: Calm Eyes: Yes: Conjunctiva Clear HENT: Yes: Atraumatic Neck: Yes: Supple Cardiovascular: Yes: S1, S2 Respiratory: Yes: On BiPap Gastrointestinal: Yes: Soft Genitourinary: Yes: WNL Musculoskeletal: Yes: Muscle Weakness Edema: Yes Edema: LLE: Trace, RLE: Trace Neurological: Yes: Lethargy Labs: CBC, BMP 10/28/19 06:00 10/28/19 06:00 INR, PTT INR 0.99 (0.83-1.09) 10/07/19 02:55 Problem List - Problems (1) Fluid overload Code(s): E87.70 - FLUID OVERLOAD, UNSPECIFIED (2) CKD (chronic kidney disease) Code(s): N18.9 - CHRONIC KIDNEY DISEASE, UNSPECIFIED Assessment/Plan Current Medications Generic Name Dose Route Start Last Admin Trade Name Freq PRN Reason Stop Dose Admin Acetaminophen 650 mg 10/21/19 18:26 Tylenol - PO Q6H PRN FEVER Albuterol/Ipratropium 1 amp 10/21/19 18:26 10/26/19 23:00 Duoneb - NEB 1 amp Q4H PRN Administration SHORTNESS OF BREATH Allopurinol 100 mg 10/22/19 10:00 10/28/19 09:18 Zyloprim - PO Not Given DAILY [facility] Amiodarone HCl 200 mg 10/21/19 22:00 10/28/19 09:16 Cordarone - PO Not Given BID [facility] Aspirin 81 mg 10/22/19 10:00 10/28/19 09:16 Ecotrin - PO Not Given DAILY [facility] Atorvastatin Calcium 80 mg 10/21/19 22:00 10/27/19 21:06 Lipitor - PO Not Given HS [facility] Escitalopram Oxalate 20 mg 10/24/19 10:00 10/28/19 09:17 Lexapro - PO Not Given DAILY [facility] Levothyroxine Sodium 75 mcg 10/22/19 07:00 10/28/19 06:13 Synthroid - PO Not Given DAILY@0700 [facility] Melatonin 10 mg 10/23/19 02:13 10/23/19 22:13 Melatonin PO 10 mg HS PRN Administration INSOMNIA Midodrine 10 mg 10/22/19 10:00 10/28/19 09:17 Proamatine - PO Not Given TID-MID [facility] Pantoprazole Sodium 40 mg 10/22/19 10:00 10/28/19 09:18 Protonix - PO Not Given DAILY [facility] Prednisone 20 mg 10/24/19 10:00 10/28/19 09:16 Deltasone - PO Not Given DAILY [facility] Silver Sulfadiazine 1 applic 10/22/19 10:00 10/27/19 10:28 Silvadene - TP 1 applic DAILY [facility] Administration Valacyclovir HCl 500 mg 10/22/19 10:00 10/28/19 09:18 Valtrex - PO Not Given DAILY [facility] Impression 1. proteinuria 2. multiple myeloma 3. amyloid 4. dizziness 5. hypotension 6. HLD 7. hypothyroidism 8. anemia 9. CKD 10. fluid overload 11. hypotension 12. hyperkalemia 13. nstemi 14. DEBBIE 15. resp failure requiring bipap Plan - potassium improved - pt does not want HD therapy - discuss GOC - cont bipap - pt doing poorly
--- NOTE | 2019-10-28 15:09 | PN ---
Physical Exam: SUBJECTIVE: Patient seen and examined at bed side lethargic fatigue minimally responisve OBJECTIVE: Vital Signs Period Temp Pulse Resp BP Sys/Moss Pulse Ox Last 24 Hr 98.2 F-99 F 67-74 12- 85-109/48-60 97-100 Gen: lethargic on BiPAP Heart: RRR Lung: decreased breath sounds at the bases Abd: soft, nontender Ext: +2 edema Laboratory Results - last 24 hr 10/27/19 10/28/19 10/28/19 19:00 06:00 06:00 WBC 4.2 3.4 L RBC 2.84 L 2.59 L Hgb 9.1 L 8.4 L Hct 28.8 L 25.9 L MCV 101.4 H 100.0 H MCH 32.1 32.3 MCHC 31.7 L 32.3 RDW 24.6 H 23.6 H Plt Count 27 L* D 28 L* MPV 11.0 12.5 H D Absolute Neuts (auto) 3.3 Neutrophils % 96.9 H Neutrophils % (Manual) 83.8 H Band Neutrophils % 5.1 Lymphocytes % 1.1 L D Lymphocytes % (Manual) 0.0 L Monocytes % 1.6 L Monocytes % (Manual) 3 L D Eosinophils % 0.1 D Eosinophils % (Manual) 0.0 Basophils % 0.3 Basophils % (Manual) 0.0 Myelocytes % (Man) 3 H D Promyelocytes % (Man) 0 Blast Cells % (Manual) 0 Nucleated RBC % 1 H Metamyelocytes 4 H D Hypochromia 0 Platelet Estimate Decreased Polychromasia 0 Poikilocytosis 1+ Anisocytosis 2+ Microcytosis 1+ Macrocytosis 1+ Target Cells 1+ Judy Cells 1+ Sodium 144 Potassium 4.7 Chloride 109 H Carbon Dioxide 25 Anion Gap 11 BUN 75.3 H Creatinine 4.2 H Est GFR (CKD-EPI)AfAm 11.26 Est GFR (CKD-EPI)NonAf 9.71 Random Glucose 135 H Calcium 7.4 L Total Bilirubin 1.0 AST 94 H ALT 88 H Alkaline Phosphatase 128 H Total Protein 5.4 L Albumin 1.4 L Active Medications Generic Name Dose Route Start Last Admin Trade Name Freq PRN Reason Stop Dose Admin Acetaminophen 650 mg 10/21/19 18:26 Tylenol - PO Q6H PRN FEVER Albuterol/Ipratropium 1 amp 10/21/19 18:26 10/26/19 23:00 Duoneb - NEB 1 amp Q4H PRN Administration SHORTNESS OF BREATH Allopurinol 100 mg 10/22/19 10:00 10/28/19 09:18 Zyloprim - PO Not Given DAILY [facility] Amiodarone HCl 200 mg 10/21/19 22:00 10/28/19 09:16 Cordarone - PO Not Given BID [facility] Aspirin 81 mg 10/22/19 10:00 10/28/19 09:16 Ecotrin - PO Not Given DAILY [facility] Atorvastatin Calcium 80 mg 10/21/19 22:00 10/27/19 21:06 Lipitor - PO Not Given HS [facility] Escitalopram Oxalate 20 mg 10/24/19 10:00 10/28/19 09:17 Lexapro - PO Not Given DAILY [facility] Levothyroxine Sodium 75 mcg 10/22/19 07:00 10/28/19 06:13 Synthroid - PO Not Given DAILY@0700 [facility] Melatonin 10 mg 10/23/19 02:13 10/23/19 22:13 Melatonin PO 10 mg HS PRN Administration INSOMNIA Midodrine 10 mg 10/22/19 10:00 10/28/19 15:01 Proamatine - PO Not Given TID-MID [facility] Pantoprazole Sodium 40 mg 10/22/19 10:00 10/28/19 09:18 Protonix - PO Not Given DAILY [facility] Prednisone 20 mg 10/24/19 10:00 10/28/19 09:16 Deltasone - PO Not Given DAILY [facility] Silver Sulfadiazine 1 applic 10/22/19 10:00 10/28/19 11:02 Silvadene - TP 1 applic DAILY [facility] Administration Valacyclovir HCl 500 mg 10/22/19 10:00 10/28/19 09:18 Valtrex - PO Not Given DAILY [facility] CBC, BMP 10/28/19 06:00 10/28/19 06:00 ASSESSMENT/PLAN: Multiple Myeloma Amyloid CHF Anemia Fever LLL atelectasis vs infiltrate Renal failure Hypotension CHF Active GI bleed hyperkalmia Transfuse PRBCs as needed , maintain Hgb > 9 Patient had refused HD access, dialysis, meds, . she is DNR/DNI supportive care poor prognosis Visit type - Emergency Visit Emergency Visit: Yes ED Registration Date: 09/20/19 Care time: The patient presented to the Emergency Department on the above date and was hospitalized for further evaluation of their emergent condition. - New Patient This patient is new to me today: No - Critical Care Critical Care patient: No ATTENDING PHYSICIAN STATEMENT I saw and evaluated the patient. I reviewed the resident's note and discussed the case with the resident. I agree with the resident's findings and plan as documented. SUBJECTIVE: OBJECTIVE: ASSESSMENT AND PLAN:
--- NOTE | 2019-10-28 15:20 | PN ---
Progress Note, Physician History of Present Illness: remains lethargic on bipap - Current Medication List Current Medications: Active Medications Acetaminophen (Tylenol -) 650 mg PO Q6H PRN PRN Reason: FEVER Albuterol/Ipratropium (Duoneb -) 1 amp NEB Q4H PRN PRN Reason: SHORTNESS OF BREATH Last Admin: 10/26/19 23:00 Dose: 1 amp Allopurinol (Zyloprim -) 100 mg PO DAILY [facility] Last Admin: 10/28/19 09:18 Dose: Not Given Amiodarone HCl (Cordarone -) 200 mg PO BID [facility] Last Admin: 10/28/19 09:16 Dose: Not Given Aspirin (Ecotrin -) 81 mg PO DAILY [facility] Last Admin: 10/28/19 09:16 Dose: Not Given Atorvastatin Calcium (Lipitor -) 80 mg PO HS [facility] Last Admin: 10/27/19 21:06 Dose: Not Given Escitalopram Oxalate (Lexapro -) 20 mg PO DAILY [facility] Last Admin: 10/28/19 09:17 Dose: Not Given Levothyroxine Sodium (Synthroid -) 75 mcg PO DAILY@0700 [facility] Last Admin: 10/28/19 06:13 Dose: Not Given Melatonin (Melatonin) 10 mg PO HS PRN PRN Reason: INSOMNIA Last Admin: 10/23/19 22:13 Dose: 10 mg Midodrine (Proamatine -) 10 mg PO TID-MID [facility] Last Admin: 10/28/19 15:01 Dose: Not Given Pantoprazole Sodium (Protonix -) 40 mg PO DAILY [facility] Last Admin: 10/28/19 09:18 Dose: Not Given Prednisone (Deltasone -) 20 mg PO DAILY [facility] Last Admin: 10/28/19 09:16 Dose: Not Given Silver Sulfadiazine (Silvadene -) 1 applic TP DAILY [facility] Last Admin: 10/28/19 11:02 Dose: 1 applic Valacyclovir HCl (Valtrex -) 500 mg PO DAILY [facility] Last Admin: 10/28/19 09:18 Dose: Not Given - Objective Vital Signs: Vital Signs Temperature 99 F 10/28/19 08:00 Pulse Rate 74 10/28/19 12:00 Respiratory Rate 26 H 10/28/19 12:00 Blood Pressure 93/49 L 10/28/19 12:00 O2 Sat by Pulse Oximetry (%) 98 10/28/19 11:38 Constitutional: Yes: Other Cardiovascular: Yes: S1, S2 Respiratory: Yes: On BiPap Gastrointestinal: Yes: Normal Bowel Sounds, Soft Musculoskeletal: Yes: WNL Extremities: Yes: WNL Neurological: Yes: Other (lethargic) Psychiatric: Yes: Other Labs: CBC, BMP 10/28/19 06:00 10/28/19 06:00 INR, PTT INR 0.99 (0.83-1.09) 10/07/19 02:55 Assessment/Plan Problem List - Problems (1) Anasarca Code(s): R60.1 - GENERALIZED EDEMA (2) Fluid overload Code(s): E87.70 - FLUID OVERLOAD, UNSPECIFIED (3) Hypoxia Code(s): R09.02 - HYPOXEMIA (4) Weakness Code(s): R53.1 - WEAKNESS (5) ASHD (arteriosclerotic heart disease) Code(s): I25.10 - ATHSCL HEART DISEASE OF [place] CORONARY ARTERY W/O ANG PCTRS (6) Acute exacerbation of CHF (congestive heart failure) Code(s): I50.9 - HEART FAILURE, UNSPECIFIED (7) Acute on chronic systolic CHF (congestive heart failure) Code(s): I50.23 - ACUTE ON CHRONIC SYSTOLIC (CONGESTIVE) HEART FAILURE (8) Adult onset hypothyroidism Code(s): E03.8 - OTHER SPECIFIED HYPOTHYROIDISM (9) Anemia Code(s): D64.9 - ANEMIA, UNSPECIFIED (10) CKD (chronic kidney disease) Code(s): N18.9 - CHRONIC KIDNEY DISEASE, UNSPECIFIED (11) Elevated troponin Code(s): R74.8 - ABNORMAL LEVELS OF OTHER SERUM ENZYMES (12) HLD (hyperlipidemia) Code(s): E78.5 - HYPERLIPIDEMIA, UNSPECIFIED Qualifiers: Hyperlipidemia type: unspecified Qualified Code(s): E78.5 - Hyperlipidemia , unspecified (13) HTN (hypertension) Code(s): I10 - ESSENTIAL (PRIMARY) HYPERTENSION Qualifiers: Hypertension type: unspecified Qualified Code(s): I10 - Essential (primary ) hypertension (14) History of heart artery stent Code(s): Z95.5 - PRESENCE OF CORONARY ANGIOPLASTY IMPLANT AND GRAFT (15) Multiple myeloma Code(s): C90.00 - MULTIPLE MYELOMA NOT HAVING ACHIEVED REMISSION Qualifiers: Multiple myeloma remission status: not in remission Qualified Code(s): C90.00 - Multiple myeloma not having achieved remission uti hypotension Assessment/Plan completed abx resp support rest as per the team poor prognosis not doing well
[2019-10-28] MEDS: ALBUTEROL SO4 2.5/IPRATROPIUM 0.5 INH SOL 3 ML VIAL.NEB. NEB PRN (20:55)
[2019-10-28] MEDS: ATORVASTATIN CA 80 MG TABLET (FP) PO SCH (21:04)
--- NOTE | 2019-10-28 23:00 | PN ---
Progress Note, Physician History of Present Illness: Pt on BIPAP Pt minimally responsive to painful stimuli - Current Medication List Current Medications: Active Medications Acetaminophen (Tylenol -) 650 mg PO Q6H PRN PRN Reason: FEVER Albuterol/Ipratropium (Duoneb -) 1 amp NEB Q4H PRN PRN Reason: SHORTNESS OF BREATH Last Admin: 10/28/19 20:55 Dose: 1 amp Allopurinol (Zyloprim -) 100 mg PO DAILY [facility] Last Admin: 10/28/19 09:18 Dose: Not Given Amiodarone HCl (Cordarone -) 200 mg PO BID [facility] Last Admin: 10/28/19 21:03 Dose: Not Given Aspirin (Ecotrin -) 81 mg PO DAILY [facility] Last Admin: 10/28/19 09:16 Dose: Not Given Atorvastatin Calcium (Lipitor -) 80 mg PO HS [facility] Last Admin: 10/28/19 21:04 Dose: Not Given Escitalopram Oxalate (Lexapro -) 20 mg PO DAILY [facility] Last Admin: 10/28/19 09:17 Dose: Not Given Levothyroxine Sodium (Synthroid -) 75 mcg PO DAILY@0700 [facility] Last Admin: 10/28/19 06:13 Dose: Not Given Melatonin (Melatonin) 10 mg PO HS PRN PRN Reason: INSOMNIA Last Admin: 10/23/19 22:13 Dose: 10 mg Midodrine (Proamatine -) 10 mg PO TID-MID [facility] Last Admin: 10/28/19 19:41 Dose: Not Given Pantoprazole Sodium (Protonix -) 40 mg PO DAILY [facility] Last Admin: 10/28/19 09:18 Dose: Not Given Prednisone (Deltasone -) 20 mg PO DAILY [facility] Last Admin: 10/28/19 09:16 Dose: Not Given Silver Sulfadiazine (Silvadene -) 1 applic TP DAILY [facility] Last Admin: 10/28/19 11:02 Dose: 1 applic Valacyclovir HCl (Valtrex -) 500 mg PO DAILY [facility] Last Admin: 10/28/19 09:18 Dose: Not Given - Objective Vital Signs: Vital Signs Temperature 98.2 F 10/28/19 19:26 Pulse Rate 75 10/28/19 19:26 Respiratory Rate 18 10/28/19 19:26 Blood Pressure 99/55 L 10/28/19 19:26 O2 Sat by Pulse Oximetry (%) 97 12/27/19 20:10 Neck: Yes: WNL, Supple Cardiovascular: Yes: WNL, Regular Rate and Rhythm Respiratory: Yes: Diminished Gastrointestinal: Yes: WNL, Normal Bowel Sounds, Soft Edema: LLE: 1+, RLE: 1+ Labs: CBC, BMP 10/28/19 06:00 10/28/19 06:00 INR, PTT INR 0.99 (0.83-1.09) 10/07/19 02:55 Problem List - Problems (1) Multiple myeloma Assessment/Plan: Poor prognosis Family is aware Ethics consult noted Supportive care Code(s): C90.00 - MULTIPLE MYELOMA NOT HAVING ACHIEVED REMISSION Qualifiers: Multiple myeloma remission status: not in remission Qualified Code(s): C90.00 - Multiple myeloma not having achieved remission (2) Pancytopenia Assessment/Plan: Plt count decreased As per heme Cont prednisone for now Code(s): D61.818 - OTHER PANCYTOPENIA (3) Hypotension Assessment/Plan: Cont midodrine Code(s): I95.9 - HYPOTENSION, UNSPECIFIED (4) Acute on chronic renal failure Assessment/Plan: Pt has been refusing dialysis Gentle hydration due to no po intake Code(s): N17.9 - ACUTE KIDNEY FAILURE, UNSPECIFIED; N18.9 - CHRONIC KIDNEY DISEASE, UNSPECIFIED (5) Acute on chronic systolic CHF (congestive heart failure) Code(s): I50.23 - ACUTE ON CHRONIC SYSTOLIC (CONGESTIVE) HEART FAILURE (6) Hypothyroidism Code(s): E03.9 - HYPOTHYROIDISM, UNSPECIFIED Qualifiers: Hypothyroidism type: acquired Qualified Code(s): E03.9 - Hypothyroidism, unspecified (7) CAD (coronary artery disease) Code(s): I25.10 - ATHSCL HEART DISEASE OF [place] CORONARY ARTERY W/O ANG PCTRS Qualifiers: (8) Depression Code(s): F32.9 - MAJOR DEPRESSIVE DISORDER, SINGLE EPISODE, UNSPECIFIED (9) History of heart artery stent Code(s): Z95.5 - PRESENCE OF CORONARY ANGIOPLASTY IMPLANT AND GRAFT (10) Diarrhea Code(s): R19.7 - DIARRHEA, UNSPECIFIED Qualifiers: Diarrhea type: unspecified type Qualified Code(s): R19.7 - Diarrhea, unspecified (11) UTI (urinary tract infection) Code(s): N39.0 - URINARY TRACT INFECTION, SITE NOT SPECIFIED (12) Elevated troponin Code(s): R74.8 - ABNORMAL LEVELS OF OTHER SERUM ENZYMES (13) HLD (hyperlipidemia) Code(s): E78.5 - HYPERLIPIDEMIA, UNSPECIFIED Qualifiers: Hyperlipidemia type: unspecified Qualified Code(s): E78.5 - Hyperlipidemia , unspecified
[2019-10-29] MEDS: LEVOTHYROXINE NA 75 MCG TABLET (FP) PO SCH (06:11)
--- NOTE | 2019-10-29 09:10 | PN ---
Progress Note (short form) - Note Progress Note: RENAL pt in icu unable to give history Last Vital Signs Temp Pulse Resp BP Pulse Ox 97.9 F 74 28 H 86/42 L 100 10/29/19 07:25 10/29/19 07:25 10/29/19 07:25 10/29/19 07:25 10/29/19 08:16 lungs decreased breath sounds bilat cvs s1s2 rr has a rub abd soft ext + edema neuro a+ox3 CBC, BMP 10/28/19 06:00 10/28/19 06:00 Current Medications Generic Name Dose Route Start Last Admin Trade Name Freq PRN Reason Stop Dose Admin Acetaminophen 650 mg 10/21/19 18:26 Tylenol - PO Q6H PRN FEVER Albuterol/Ipratropium 1 amp 10/21/19 18:26 10/28/19 20:55 Duoneb - NEB 1 amp Q4H PRN Administration SHORTNESS OF BREATH Allopurinol 100 mg 10/22/19 10:00 10/28/19 09:18 Zyloprim - PO Not Given DAILY [facility] Amiodarone HCl 200 mg 10/21/19 22:00 10/28/19 21:03 Cordarone - PO Not Given BID [facility] Aspirin 81 mg 10/22/19 10:00 10/28/19 09:16 Ecotrin - PO Not Given DAILY [facility] Atorvastatin Calcium 80 mg 10/21/19 22:00 10/28/19 21:04 Lipitor - PO Not Given HS [facility] Escitalopram Oxalate 20 mg 10/24/19 10:00 10/28/19 09:17 Lexapro - PO Not Given DAILY [facility] Levothyroxine Sodium 75 mcg 10/22/19 07:00 10/29/19 06:11 Synthroid - PO Not Given DAILY@0700 [facility] Melatonin 10 mg 10/23/19 02:13 10/23/19 22:13 Melatonin PO 10 mg HS PRN Administration INSOMNIA Midodrine 10 mg 10/22/19 10:00 10/28/19 19:41 Proamatine - PO Not Given TID-MID [facility] Pantoprazole Sodium 40 mg 10/22/19 10:00 10/28/19 09:18 Protonix - PO Not Given DAILY [facility] Prednisone 20 mg 10/24/19 10:00 10/28/19 09:16 Deltasone - PO Not Given DAILY [facility] Silver Sulfadiazine 1 applic 10/22/19 10:00 10/28/19 11:02 Silvadene - TP 1 applic DAILY [facility] Administration Valacyclovir HCl 500 mg 10/22/19 10:00 10/28/19 09:18 Valtrex - PO Not Given DAILY [facility] Impression 1. proteinuria/severe hypoalbuminemia 2. multiple myeloma 3. amyloid 4. dizziness 5. hypotension 6. HLD 7. hypothyroidism 8. anemia 9. CKD 10. fluid overload though sats are good 11 nstemi 12.DEBBIE 13 globular heart on xray 14 ?rub, ?pericarditis PLAN pt has some bleeding from gi tract- could potentially benefit from ddavp 3 mcg per kg x1 GOC monitor for now palliative care MV
--- NOTE | 2019-10-29 09:14 | PN ---
Progress Note, Physician Chief Complaint: Pt responds to verbal queries only with slight "yes or no" movements of head; moves limbs slightly when requested. Denies pain, dyspnea. History of Present Illness: 74 year old black female with PMH multiple myeloma, amyloidosis (s/p chemotherapy, abdomen-directed radiation Tx), HTN, HLD, CAD: NSEMI early 2018--> DE stent of D1 at [facility], GERD, ? "mild" systolic CHF (now noted severely reduced LVEF on ECHO), on Lasix, rectal hemorrhoids, PAF (brief runs early 2018 ; not on anticoagulation due to severe anemia, hx GI bleed), now presented to ED for diarrhea x2 days associated with generalized weakness, ROGERS. Pt reported she has had loose, watery diarrhea x2 days, and prior to that he had rectal bleeding x2 days (on toilet paper and mixed in stool) that self resolved. She reported she only noticed the bleeding because it was on the toilet paper, as she did not have abdominal or rectal pain. Pt reported generalized weakness and ROGERS, which prompted her to come to the ED. Pt denied nausea, vomiting, fever, abdominal pain, chest pain, increased LE swelling. She reported she believed her lower extremity swelling is actually improving. She also reported noticing a new "rash" to her right hip since last week. - Current Medication List Current Medications: Active Medications Acetaminophen (Tylenol -) 650 mg PO Q6H PRN PRN Reason: FEVER Albuterol/Ipratropium (Duoneb -) 1 amp NEB Q4H PRN PRN Reason: SHORTNESS OF BREATH Last Admin: 10/28/19 20:55 Dose: 1 amp Allopurinol (Zyloprim -) 100 mg PO DAILY [facility] Last Admin: 10/28/19 09:18 Dose: Not Given Amiodarone HCl (Cordarone -) 200 mg PO BID [facility] Last Admin: 10/28/19 21:03 Dose: Not Given Aspirin (Ecotrin -) 81 mg PO DAILY [facility] Last Admin: 10/28/19 09:16 Dose: Not Given Atorvastatin Calcium (Lipitor -) 80 mg PO HS [facility] Last Admin: 10/28/19 21:04 Dose: Not Given Escitalopram Oxalate (Lexapro -) 20 mg PO DAILY [facility] Last Admin: 10/28/19 09:17 Dose: Not Given Levothyroxine Sodium (Synthroid -) 75 mcg PO DAILY@0700 [facility] Last Admin: 10/29/19 06:11 Dose: Not Given Melatonin (Melatonin) 10 mg PO HS PRN PRN Reason: INSOMNIA Last Admin: 10/23/19 22:13 Dose: 10 mg Midodrine (Proamatine -) 10 mg PO TID-MID [facility] Last Admin: 10/28/19 19:41 Dose: Not Given Pantoprazole Sodium (Protonix -) 40 mg PO DAILY [facility] Last Admin: 10/28/19 09:18 Dose: Not Given Prednisone (Deltasone -) 20 mg PO DAILY [facility] Last Admin: 10/28/19 09:16 Dose: Not Given Silver Sulfadiazine (Silvadene -) 1 applic TP DAILY [facility] Last Admin: 10/28/19 11:02 Dose: 1 applic Valacyclovir HCl (Valtrex -) 500 mg PO DAILY [facility] Last Admin: 10/28/19 09:18 Dose: Not Given - Objective Vital Signs: Vital Signs Temperature 97.9 F 10/29/19 07:25 Pulse Rate 74 10/29/19 07:25 Respiratory Rate 28 H 10/29/19 07:25 Blood Pressure 86/42 L 10/29/19 07:25 O2 Sat by Pulse Oximetry (%) 100 10/29/19 09:00 Labs: CBC, BMP 10/28/19 06:00 10/28/19 06:00 INR, PTT INR 0.99 (0.83-1.09) 10/07/19 02:55 Problem List - Problems (1) Weakness Code(s): R53.1 - WEAKNESS (2) ASHD (arteriosclerotic heart disease) Code(s): I25.10 - ATHSCL HEART DISEASE OF [place] CORONARY ARTERY W/O ANG PCTRS (3) Acute on chronic systolic CHF (congestive heart failure) Assessment/Plan: Pt remains on PO amiodarone 200 bid (change to 100 mg bid after 28 doses); on IV Solucortef. Fragile hemodynamics preclude restarting ACEI, spironolactone. Hemodialysis per case manager specialist. F/u BUN/Cr, electrolytes, Is and Os, daily weight. Code(s): I50.23 - ACUTE ON CHRONIC SYSTOLIC (CONGESTIVE) HEART FAILURE (4) Adult onset hypothyroidism Assessment/Plan: mildly elevated TSH; normal Free T4 in ICU setting. Code(s): E03.8 - OTHER SPECIFIED HYPOTHYROIDISM (5) Anxiety Code(s): F41.9 - ANXIETY DISORDER, UNSPECIFIED (6) Elevated troponin Assessment/Plan: Imp: demand ischemia, with acute systolic CHF a principal contributer. Continue hemodialysis; fluid removal is crucial. Continue ASA and clopidogrel. Code(s): R74.8 - ABNORMAL LEVELS OF OTHER SERUM ENZYMES (7) HLD (hyperlipidemia) Code(s): E78.5 - HYPERLIPIDEMIA, UNSPECIFIED Qualifiers: Hyperlipidemia type: unspecified Qualified Code(s): E78.5 - Hyperlipidemia , unspecified (8) History of heart artery stent Code(s): Z95.5 - PRESENCE OF CORONARY ANGIOPLASTY IMPLANT AND GRAFT (9) Multiple myeloma Code(s): C90.00 - MULTIPLE MYELOMA NOT HAVING ACHIEVED REMISSION Qualifiers: Multiple myeloma remission status: not in remission Qualified Code(s): C90.00 - Multiple myeloma not having achieved remission (10) Pancytopenia Code(s): D61.818 - OTHER PANCYTOPENIA (11) NSTEMI (non-ST elevated myocardial infarction) Code(s): I21.4 - NON-ST ELEVATION (NSTEMI) MYOCARDIAL INFARCTION (12) Acute renal insufficiency Code(s): N28.9 - DISORDER OF KIDNEY AND URETER, UNSPECIFIED (13) Hypoalbuminemia Code(s): E88.09 - OTH DISORDERS OF PLASMA-PROTEIN METABOLISM, NEC (14) Hyperkalemia Code(s): E87.5 - HYPERKALEMIA (15) Chest pain Code(s): R07.9 - CHEST PAIN, UNSPECIFIED Qualifiers: Chest pain type: unspecified Qualified Code(s): R07.9 - Chest pain, unspecified (16) PAF (paroxysmal atrial fibrillation) Code(s): I48.0 - PAROXYSMAL ATRIAL FIBRILLATION (17) Renal failure Code(s): N19 - UNSPECIFIED KIDNEY FAILURE
--- NOTE | 2019-10-29 09:20 | PN ---
Progress Note, Physician Chief Complaint: Pt very weak; still able to respond to verbal queries; not eating. History of Present Illness: 74 year old black female with PMH multiple myeloma, amyloidosis (s/p chemotherapy, abdomen-directed radiation Tx), HTN, HLD, CAD: NSEMI early 2018--> DE stent of D1 at [facility], GERD, ? "mild" systolic CHF (now noted severely reduced LVEF on ECHO), on Lasix, rectal hemorrhoids, PAF (brief runs early 2018 ; not on anticoagulation due to severe anemia, hx GI bleed), now presented to ED for diarrhea x2 days associated with generalized weakness, ROGERS. Pt reported she has had loose, watery diarrhea x2 days, and prior to that he had rectal bleeding x2 days (on toilet paper and mixed in stool) that self resolved. She reported she only noticed the bleeding because it was on the toilet paper, as she did not have abdominal or rectal pain. Pt reported generalized weakness and ROGERS, which prompted her to come to the ED. Pt denied nausea, vomiting, fever, abdominal pain, chest pain, increased LE swelling. She reported she believed her lower extremity swelling is actually improving. She also reported noticing a new "rash" to her right hip since last week. - Current Medication List Current Medications: Active Medications Acetaminophen (Tylenol -) 650 mg PO Q6H PRN PRN Reason: FEVER Albuterol/Ipratropium (Duoneb -) 1 amp NEB Q4H PRN PRN Reason: SHORTNESS OF BREATH Last Admin: 10/28/19 20:55 Dose: 1 amp Allopurinol (Zyloprim -) 100 mg PO DAILY [facility] Last Admin: 10/28/19 09:18 Dose: Not Given Amiodarone HCl (Cordarone -) 200 mg PO BID [facility] Last Admin: 10/28/19 21:03 Dose: Not Given Aspirin (Ecotrin -) 81 mg PO DAILY [facility] Last Admin: 10/28/19 09:16 Dose: Not Given Atorvastatin Calcium (Lipitor -) 80 mg PO HS [facility] Last Admin: 10/28/19 21:04 Dose: Not Given Escitalopram Oxalate (Lexapro -) 20 mg PO DAILY [facility] Last Admin: 10/28/19 09:17 Dose: Not Given Levothyroxine Sodium (Synthroid -) 75 mcg PO DAILY@0700 [facility] Last Admin: 10/29/19 06:11 Dose: Not Given Melatonin (Melatonin) 10 mg PO HS PRN PRN Reason: INSOMNIA Last Admin: 10/23/19 22:13 Dose: 10 mg Midodrine (Proamatine -) 10 mg PO TID-MID [facility] Last Admin: 10/28/19 19:41 Dose: Not Given Pantoprazole Sodium (Protonix -) 40 mg PO DAILY [facility] Last Admin: 10/28/19 09:18 Dose: Not Given Prednisone (Deltasone -) 20 mg PO DAILY [facility] Last Admin: 10/28/19 09:16 Dose: Not Given Silver Sulfadiazine (Silvadene -) 1 applic TP DAILY [facility] Last Admin: 10/28/19 11:02 Dose: 1 applic Valacyclovir HCl (Valtrex -) 500 mg PO DAILY [facility] Last Admin: 10/28/19 09:18 Dose: Not Given - Objective Vital Signs: Vital Signs Temperature 97.9 F 10/29/19 07:25 Pulse Rate 74 10/29/19 07:25 Respiratory Rate 28 H 10/29/19 07:25 Blood Pressure 86/42 L 10/29/19 07:25 O2 Sat by Pulse Oximetry (%) 100 10/29/19 09:00 Constitutional: Yes: Other Eyes: Yes: WNL HENT: Yes: WNL Neck: Yes: Decreased ROM Cardiovascular: Yes: S1, S2 (split) Respiratory: Yes: Diminished Gastrointestinal: Yes: Soft Genitourinary: Yes: Other (on hemodialysis periodically). No: Anuria Breast(s): Yes: WNL Musculoskeletal: Yes: Muscle Weakness Extremities: Yes: Cool Peripheral Pulses WNL: No Neurological: Yes: Alert, Weakness Psychiatric: Yes: Alert, Other (depression) Labs: CBC, BMP 10/28/19 06:00 10/28/19 06:00 INR, PTT INR 0.99 (0.83-1.09) 10/07/19 02:55 - ....Imaging Other: Image Reviewed (telemetry: NSR; APCs) Problem List - Problems (1) Weakness Code(s): R53.1 - WEAKNESS (2) ASHD (arteriosclerotic heart disease) Code(s): I25.10 - ATHSCL HEART DISEASE OF [place] CORONARY ARTERY W/O ANG PCTRS (3) Acute on chronic systolic CHF (congestive heart failure) Code(s): I50.23 - ACUTE ON CHRONIC SYSTOLIC (CONGESTIVE) HEART FAILURE (4) Adult onset hypothyroidism Code(s): E03.8 - OTHER SPECIFIED HYPOTHYROIDISM (5) Anxiety Code(s): F41.9 - ANXIETY DISORDER, UNSPECIFIED (6) Elevated troponin Code(s): R74.8 - ABNORMAL LEVELS OF OTHER SERUM ENZYMES (7) HLD (hyperlipidemia) Code(s): E78.5 - HYPERLIPIDEMIA, UNSPECIFIED Qualifiers: Hyperlipidemia type: unspecified Qualified Code(s): E78.5 - Hyperlipidemia , unspecified (8) History of heart artery stent Code(s): Z95.5 - PRESENCE OF CORONARY ANGIOPLASTY IMPLANT AND GRAFT (9) Multiple myeloma Assessment/Plan: Multiple myeloma; amyloidosis. Discussed with oncologist: poor prognosis Code(s): C90.00 - MULTIPLE MYELOMA NOT HAVING ACHIEVED REMISSION Qualifiers: Multiple myeloma remission status: not in remission Qualified Code(s): C90.00 - Multiple myeloma not having achieved remission (10) Pancytopenia Assessment/Plan: f/u with hem/onc; WBC now WNL. Code(s): D61.818 - OTHER PANCYTOPENIA (11) NSTEMI (non-ST elevated myocardial infarction) Assessment/Plan: Hx NSTEMI ?12/2018-->DE stent of D1 at [facility]. New NSTEMI this admission, with contributer profound demand ischemia. Continue ASA and Plavix; amiodarone, atorvastatin Consider beta blockers (for NSTEMI and systolic CHF) when BP allows, as well as ACEI, ARB, or ENtresto if becomes hemodynamically stable. [place] appears grim, however, in light of prevailing oncologic condition. ( Code(s): I21.4 - NON-ST ELEVATION (NSTEMI) MYOCARDIAL INFARCTION (12) Acute renal insufficiency Code(s): N28.9 - DISORDER OF KIDNEY AND URETER, UNSPECIFIED (13) Hypoalbuminemia Code(s): E88.09 - OTH DISORDERS OF PLASMA-PROTEIN METABOLISM, NEC (14) Hyperkalemia Code(s): E87.5 - HYPERKALEMIA (15) Chest pain Code(s): R07.9 - CHEST PAIN, UNSPECIFIED Qualifiers: Chest pain type: unspecified Qualified Code(s): R07.9 - Chest pain, unspecified (16) PAF (paroxysmal atrial fibrillation) Code(s): I48.0 - PAROXYSMAL ATRIAL FIBRILLATION (17) Renal failure Code(s): N19 - UNSPECIFIED KIDNEY FAILURE
--- NOTE | 2019-10-29 10:18 | PN ---
Physical Exam: SUBJECTIVE: Patient seen and examined, lethargic, opens eyes and fallls back to sleep OBJECTIVE: hold asa, due to low platelets and gi bleed, but has not taken it in days start on clinimax, as pt is no longer accepting and PO intake bp 90/60 pt is a dnr/dni Patient had refused HD access, dialysis, meds has not taken any medications in days, convert to IV form (solumedrol 20 and protonix 40iv BID) Patient is a 74 year old female with past medical history of hypertension, HLD, CAD s/p coronary artery stenting, GERD, multiple myeloma (chemo; radiation directed at abdomen), poor LV compliance on Lasix, rectal hemorrhoids presented to ED for diarrhea x2 days associated with generalized weakness, and with acute shortness of breath. Vital Signs Period Temp Pulse Resp BP Sys/[place]oss Pulse Ox Last 24 Hr 97.6 F-98.2 F 72-77 18-28 81-99/42-55 96-100 GENERAL: lethargic, in no acute distress HEAD: Normal with no signs of trauma. EYES: PERRL, extraocular movements intact, sclera anicteric, conjunctiva clear. No ptosis. ENT: Ears normal, nares patent, oropharynx clear without exudates NECK: Trachea midline, full range of motion, supple. LUNGS: Breath sounds equal, clear on anterior lobes HEART: Regular rate and rhythm ABDOMEN: Soft, nontender, nondistended, normoactive bowel sounds, no guarding EXTREMITIES: no edema. NEUROLOGICAL: Normal speech, gait not observed. PSYCH: Normal mood, normal affect. SKIN: Warm, dry, normal turgor, no rashes or lesions noted Laboratory Results - last 24 hr 10/28/19 06:00 Neutrophils % (Manual) 83.8 H Band Neutrophils % 5.1 Lymphocytes % (Manual) 0.0 L Monocytes % (Manual) 3 L D Eosinophils % (Manual) 0.0 Basophils % (Manual) 0.0 Myelocytes % (Man) 3 H D Promyelocytes % (Man) 0 Blast Cells % (Manual) 0 Metamyelocytes 4 H D Hypochromia 0 Platelet Estimate Decreased Polychromasia 0 Poikilocytosis 1+ Anisocytosis 2+ Microcytosis 1+ Macrocytosis 1+ Target Cells 1+ [place] Cells 1+ Active Medications Generic Name Dose Route Start Last Admin Trade Name Edgar PRN Reason Stop Dose Admin Acetaminophen 650 mg 10/21/19 18:26 Tylenol - PO Q6H PRN FEVER Albuterol/Ipratropium 1 amp 10/21/19 18:26 10/28/19 20:55 Duoneb - NEB 1 amp Q4H PRN Administration SHORTNESS OF BREATH Allopurinol 100 mg 10/22/19 10:00 10/28/19 09:18 Zyloprim - PO Not Given DAILY [facility] Amiodarone HCl 200 mg 10/21/19 22:00 10/28/19 21:03 Cordarone - PO Not Given BID [facility] Aspirin 81 mg 10/22/19 10:00 10/28/19 09:16 Ecotrin - PO Not Given DAILY [facility] Atorvastatin Calcium 80 mg 10/21/19 22:00 10/28/19 21:04 Lipitor - PO Not Given HS [facility] Escitalopram Oxalate 20 mg 10/24/19 10:00 10/28/19 09:17 Lexapro - PO Not Given DAILY [facility] Levothyroxine Sodium 75 mcg 10/22/19 07:00 10/29/19 06:11 Synthroid - PO Not Given DAILY@0700 [facility] Melatonin 10 mg 10/23/19 02:13 10/23/19 22:13 Melatonin PO 10 mg HS PRN Administration INSOMNIA Midodrine 10 mg 10/22/19 10:00 10/28/19 19:41 Proamatine - PO Not Given TID-MID [facility] Pantoprazole Sodium 40 mg 10/22/19 10:00 10/28/19 09:18 Protonix - PO Not Given DAILY [facility] Prednisone 20 mg 10/24/19 10:00 10/28/19 09:16 Deltasone - PO Not Given DAILY [facility] Silver Sulfadiazine 1 applic 10/22/19 10:00 10/28/19 11:02 Silvadene - TP 1 applic DAILY [facility] Administration Valacyclovir HCl 500 mg 10/22/19 10:00 10/28/19 09:18 Valtrex - PO Not Given DAILY [facility] ASSESSMENT/PLAN: Problem List - Problems (1) GI bleed Assessment/Plan: on protonix 40mg IV bid Code(s): K92.2 - GASTROINTESTINAL HEMORRHAGE, UNSPECIFIED (2) Pancytopenia Assessment/Plan: Plt count decreased was on prednisone but not taking in days due to lethargy, convert to solumderol 20 IV daily with protonix IV protection Code(s): D61.818 - OTHER PANCYTOPENIA (3) Thrombocytopenia Assessment/Plan: stop asa repeat cbc may need platelet transfusion Code(s): D69.6 - THROMBOCYTOPENIA, UNSPECIFIED (4) Acute respiratory failure with hypoxia Assessment/Plan: on bipap to assist work of breathing pulmonary following Code(s): J96.01 - ACUTE RESPIRATORY FAILURE WITH HYPOXIA (5) Acute on chronic renal failure Assessment/Plan: patient refusing dialysis per molst form Code(s): N17.9 - ACUTE KIDNEY FAILURE, UNSPECIFIED; N18.9 - CHRONIC KIDNEY DISEASE, UNSPECIFIED (6) Acute renal insufficiency Assessment/Plan: monitor with daily labs Code(s): N28.9 - DISORDER OF KIDNEY AND URETER, UNSPECIFIED (7) Depression Assessment/Plan: supportive care on lexapro Code(s): F32.9 - MAJOR DEPRESSIVE DISORDER, SINGLE EPISODE, UNSPECIFIED (8) Fluid overload Assessment/Plan: monitor intake and output, daily weights Code(s): E87.70 - FLUID OVERLOAD, UNSPECIFIED (9) Weakness Code(s): R53.1 - WEAKNESS (10) Hypotension Assessment/Plan: Cont midodrine Code(s): I95.9 - HYPOTENSION, UNSPECIFIED (11) Acute on chronic systolic CHF (congestive heart failure) Assessment/Plan: Pt on lasix prn Monitor electrolytes Will need to restart entresto once BP more stable Code(s): I50.23 - ACUTE ON CHRONIC SYSTOLIC (CONGESTIVE) HEART FAILURE (12) Multiple myeloma Assessment/Plan: poor prognosis hematology/onc following Ethics consult noted Supportive care Code(s): C90.00 - MULTIPLE MYELOMA NOT HAVING ACHIEVED REMISSION Visit type - Emergency Visit Emergency Visit: Yes ED Registration Date: 09/20/19 Care time: The patient presented to the Emergency Department on the above date and was hospitalized for further evaluation of their emergent condition. - New Patient This patient is new to me today: No - Critical Care Critical Care patient: No - Discharge Referral Referred to [facility] Med [facility] No
[2019-10-29] MEDS: ALLOPURINOL 100 MG TABLET (FP) PO SCH (11:00)
[2019-10-29] MEDS: ESCITALOPRAM OXALATE 20 MG TABLET (FP) PO SCH (11:00)
[2019-10-29] MEDS ORDERED: PANTOPRAZOLE SODIUM 40 MG VIAL IVPUSH SCH (11:00)
[2019-10-29] MEDS: MIDODRINE HCL 5 MG TABLET PO SCH ×3 (11:00→19:27)
[2019-10-29] MEDS: valACYclovir HCL 500 MG TABLET (FP) PO SCH (11:00)
[2019-10-29] MEDS: AMIODARONE HCL 200 MG TABLET (FP) PO SCH ×2 (11:00→21:50)
[2019-10-29] MEDS ORDERED: PANTOPRAZOLE 40 MG TABLET (FP) PO SCH (11:00)
--- NOTE | 2019-10-29 11:05 | PN ---
Progress Note (short form) - Note Progress Note: Patient seen and examiend diarrhea decreased urine output unresponsive On BiPAP/hypotensivve Cor: RSR, No murmurs, No gallops Lungs: decreased at bases Abd: Soft, Normal bowel sounds, Ext:3+ edema Labs/Meds reviewed A/P Multiple Myeloma Amyloid CHF Anemia Fever LLL atelectasis vs infiltrate Renal failure Hypotension CHF Active GI bleed Transfuse PRBCs/platelets as necessary Patient had refused HD access, dialysis, meds, blood draws. she is DNR/DNI and did not want dialysis Continue further goals of care discussion with patients health care proxy -- Foster
[2019-10-29 11:13] LABS: BASO % 1.1 % (0-2.0); EOS % 0.2 % (0-4.5); HEMATOCRIT 26.1 % (32.4-45.2); HEMOGLOBIN 8.5 GM/dL (10.7-15.3); LYMPH % 2.7 % (8-40); MCH 32.4 pg (25.7-33.7); MCHC 32.4 g/dl (32.0-36.0); MONO % 3.7 % (3.8-10.2); NEUT % 92.3 % (42.8-82.8); RBC 2.61 M/mm3 (3.60-5.2); RDW 24.6 % (11.6-15.6)
[2019-10-29] MEDS: SILVER SULFADIAZINE 1% TOP CREAM 50 GM JAR TP SCH (11:14)
[2019-10-29 11:17] LABS: WHITE BLOOD COUNT 1.4 K/mm3 (4.0-10.0)
[2019-10-29 12:39] LABS: PLATELET COUNT 19 K/MM3 (134-434)
[2019-10-29] MEDS: methylPREDNISolone NA SUCC 40 MG/1 ML VIAL IVPUSH SCH (12:52)
--- NOTE | 2019-10-29 12:59 | PN ---
Progress Note (short form) - Note Progress Note: Patient seen in follow up. No new events No significant events overnight. Obtunded Inpatient Meds reviewed. Current Medications Generic Name Dose Route Start Last Admin Trade Name Freq PRN Reason Stop Dose Admin Acetaminophen 650 mg 10/21/19 18:26 Tylenol - PO Q6H PRN FEVER Albuterol/Ipratropium 1 amp 10/21/19 18:26 10/28/19 20:55 Duoneb - NEB 1 amp Q4H PRN Administration SHORTNESS OF BREATH Allopurinol 100 mg 10/22/19 10:00 10/29/19 11:00 Zyloprim - PO Not Given DAILY [facility] Amiodarone HCl 200 mg 10/21/19 22:00 10/29/19 11:00 Cordarone - PO Not Given BID [facility] Atorvastatin Calcium 80 mg 10/21/19 22:00 10/28/19 21:04 Lipitor - PO Not Given HS [facility] Escitalopram Oxalate 20 mg 10/24/19 10:00 10/29/19 11:00 Lexapro - PO Not Given DAILY [facility] Amino Acids 1,000 mls @ 84 mls/hr 10/29/19 10:45 Clinimix - IV Q12H [facility] Levothyroxine Sodium 75 mcg 10/22/19 07:00 10/29/19 06:11 Synthroid - PO Not Given DAILY@0700 [facility] Melatonin 10 mg 10/23/19 02:13 10/23/19 22:13 Melatonin PO 10 mg HS PRN Administration INSOMNIA Methylprednisolone Sodium Succinate 20 mg 10/29/19 11:00 10/29/19 12:52 Solu-Medrol - IVPUSH 20 mg DAILY [facility] Administration Midodrine 10 mg 10/22/19 10:00 10/29/19 11:00 Proamatine - PO Not Given TID-MID [facility] Pantoprazole Sodium 40 mg 10/29/19 22:00 Protonix Iv IVPUSH BID [facility] Silver Sulfadiazine 1 applic 10/22/19 10:00 10/29/19 11:14 Silvadene - TP 1 applic DAILY [facility] Administration Valacyclovir HCl 500 mg 10/22/19 10:00 10/29/19 11:00 Valtrex - PO Not Given DAILY [facility] On Examination: Last Vital Signs Temp Pulse Resp BP Pulse Ox 94.9 F L 72 26 H 81/43 L 99 10/29/19 12:41 10/29/19 12:41 10/29/19 12:41 10/29/19 12:41 10/29/19 12:25 General: In no acute distress, supine in bed. BIPAP. Neuro: Reacts to painful stimuli. Labs: CBC, BMP 10/29/19 10:30 10/28/19 06:00 Assessment. Myeloma - controlled disease - currently receiving Velcade/Dex/Cytoxan -(since June 2019) Initially admitted with decompensated CHF (CAD) - hypotension requiring admission to ICU for inotropic support - with gradual deterioration and now florid DEBBIE / obtunded. Has refused dialysis. DNR/DNI. In light of medical futility see no rationale for ongoing interventions, other than comfort measures. Recommend stopping all medications, nutrition, blood products, and lab draws. Opioids appropriate if in pain/discomfort/dyspneic. Please call me if questions/concerns - [phone].
[2019-10-29] MEDS ORDERED: PT OWN MED DRAWER 7, Y5N ONE (14:00)
[2019-10-29] MEDS: AMINO ACIDS 4.25%/D5W 1,000 ML IV SCH ×2 (14:09→23:42)
[2019-10-29] MEDS ORDERED: SODIUM CHLORIDE 500 ML IV STA (14:11)
[2019-10-29 15:48] LABS: PLATELET ESTIMATE DECREASED
[2019-10-29] MEDS: ASPIRIN COATED 81 MG TABLET.EC PO SCH (16:17)
[2019-10-29] MEDS: predniSONE 20 MG TABLET (UD) PO SCH (16:17)
[2019-10-29] MEDS: PANTOPRAZOLE 40 MG TABLET (FP) PO SCH (16:17)
[2019-10-29] MEDS: ATORVASTATIN CA 80 MG TABLET (FP) PO SCH (21:50)
[2019-10-29] MEDS: PANTOPRAZOLE SODIUM 40 MG VIAL IVPUSH SCH (21:50)
[2019-10-30] MEDS ORDERED: PT OWN MED DRAWER 7, Y5N ONE (02:10)
[2019-10-30] MEDS: AMINO ACIDS 4.25%/D5W 1,000 ML IV SCH ×3 (02:12→23:56)
[2019-10-30] MEDS: LEVOTHYROXINE NA 75 MCG TABLET (FP) PO SCH (06:09)
--- NOTE | 2019-10-30 09:27 | PN ---
Progress Note (short form) - Note Progress Note: RENAL pt in icu unable to give history Last Vital Signs Temp Pulse Resp BP Pulse Ox 98.4 F 79 30 H 83/48 L 96 10/30/19 05:00 10/30/19 08:08 10/30/19 08:08 10/30/19 08:08 10/30/19 08:09 lungs decreased breath sounds bilat cvs s1s2 rr has distant heart sounds abd soft ext + edema neuro a+ox3 Current Medications Generic Name Dose Route Start Last Admin Trade Name Freq PRN Reason Stop Dose Admin Acetaminophen 650 mg 10/21/19 18:26 Tylenol - PO Q6H PRN FEVER Albuterol/Ipratropium 1 amp 10/21/19 18:26 10/28/19 20:55 Duoneb - NEB 1 amp Q4H PRN Administration SHORTNESS OF BREATH Allopurinol 100 mg 10/22/19 10:00 10/29/19 11:00 Zyloprim - PO Not Given DAILY [facility] Amiodarone HCl 200 mg 10/21/19 22:00 10/29/19 21:50 Cordarone - PO Not Given BID [facility] Atorvastatin Calcium 80 mg 10/21/19 22:00 10/29/19 21:50 Lipitor - PO Not Given HS [facility] Escitalopram Oxalate 20 mg 10/24/19 10:00 10/29/19 11:00 Lexapro - PO Not Given DAILY [facility] Amino Acids 1,000 mls @ 84 mls/hr 10/29/19 10:45 10/30/19 02:12 Clinimix - IV 84 mls/hr Q12H [facility] Administration Levothyroxine Sodium 75 mcg 10/22/19 07:00 10/30/19 06:09 Synthroid - PO Not Given DAILY@0700 [facility] Melatonin 10 mg 10/23/19 02:13 10/23/19 22:13 Melatonin PO 10 mg HS PRN Administration INSOMNIA Methylprednisolone Sodium Succinate 20 mg 10/29/19 11:00 10/29/19 12:52 Solu-Medrol - IVPUSH 20 mg DAILY [facility] Administration Midodrine 10 mg 10/22/19 10:00 10/29/19 19:27 Proamatine - PO Not Given TID-MID [facility] Pantoprazole Sodium 40 mg 10/29/19 22:00 10/29/19 21:50 Protonix Iv IVPUSH 40 mg BID [facility] Administration Silver Sulfadiazine 1 applic 10/22/19 10:00 10/29/19 11:14 Silvadene - TP 1 applic DAILY [facility] Administration Valacyclovir HCl 500 mg 10/22/19 10:00 10/29/19 11:00 Valtrex - PO Not Given DAILY [facility] CBC, BMP 10/29/19 10:30 10/28/19 06:00 Impression 1. proteinuria/severe hypoalbuminemia 2. multiple myeloma 3. amyloid 4. dizziness 5. hypotension 6. HLD 7. hypothyroidism 8. anemia 9. CKD 10. fluid overload though sats are good 11 nstemi 12.DEBBIE 13 globular heart on xray 14 ?rub, ?pericarditis 15 pancytopenia PLAN Agree with comfort care no change in renal function- MV
[2019-10-30] MEDS: MIDODRINE HCL 5 MG TABLET PO SCH ×3 (09:47→18:11)
[2019-10-30] MEDS: ESCITALOPRAM OXALATE 20 MG TABLET (FP) PO SCH (09:47)
[2019-10-30] MEDS: AMIODARONE HCL 200 MG TABLET (FP) PO SCH ×2 (09:47→22:41)
[2019-10-30] MEDS: methylPREDNISolone NA SUCC 40 MG/1 ML VIAL IVPUSH SCH (09:49)
[2019-10-30] MEDS: SILVER SULFADIAZINE 1% TOP CREAM 50 GM JAR TP SCH (09:49)
[2019-10-30] MEDS: PANTOPRAZOLE SODIUM 40 MG VIAL IVPUSH SCH ×2 (09:49→22:07)
[2019-10-30] MEDS: valACYclovir HCL 500 MG TABLET (FP) PO SCH (09:50)
[2019-10-30] MEDS: ALLOPURINOL 100 MG TABLET (FP) PO SCH (09:50)
--- NOTE | 2019-10-30 15:20 | PN ---
Progress Note (short form) - Note Progress Note: Patient seen in follow up. No new events No significant events overnight. Remains obtunded Inpatient Meds reviewed. Current Medications Generic Name Dose Route Start Last Admin Trade Name Freq PRN Reason Stop Dose Admin Acetaminophen 650 mg 10/21/19 18:26 Tylenol - PO Q6H PRN FEVER Albuterol/Ipratropium 1 amp 10/21/19 18:26 10/28/19 20:55 Duoneb - NEB 1 amp Q4H PRN Administration SHORTNESS OF BREATH Allopurinol 100 mg 10/22/19 10:00 10/30/19 09:50 Zyloprim - PO Not Given DAILY [facility] Amiodarone HCl 200 mg 10/21/19 22:00 10/30/19 09:47 Cordarone - PO Not Given BID [facility] Atorvastatin Calcium 80 mg 10/21/19 22:00 10/29/19 21:50 Lipitor - PO Not Given HS [facility] Escitalopram Oxalate 20 mg 10/24/19 10:00 10/30/19 09:47 Lexapro - PO Not Given DAILY [facility] Amino Acids 1,000 mls @ 84 mls/hr 10/29/19 10:45 10/30/19 09:50 Clinimix - IV 84 mls/hr Q12H [facility] Administration Levothyroxine Sodium 75 mcg 10/22/19 07:00 10/30/19 06:09 Synthroid - PO Not Given DAILY@0700 [facility] Melatonin 10 mg 10/23/19 02:13 10/23/19 22:13 Melatonin PO 10 mg HS PRN Administration INSOMNIA Methylprednisolone Sodium Succinate 20 mg 10/29/19 11:00 10/30/19 09:49 Solu-Medrol - IVPUSH 20 mg DAILY [facility] Administration Midodrine 10 mg 10/22/19 10:00 10/30/19 15:00 Proamatine - PO Not Given TID-MID [facility] Pantoprazole Sodium 40 mg 10/29/19 22:00 10/30/19 09:49 Protonix Iv IVPUSH 40 mg BID [facility] Administration Silver Sulfadiazine 1 applic 10/22/19 10:00 10/30/19 09:49 Silvadene - TP 1 applic DAILY [facility] Administration Valacyclovir HCl 500 mg 10/22/19 10:00 10/30/19 09:50 Valtrex - PO Not Given DAILY [facility] On Examination: Last Vital Signs Temp Pulse Resp BP Pulse Ox 99.2 F 81 28 H 82/42 L 97 10/30/19 12:40 10/30/19 12:40 10/30/19 12:40 10/30/19 12:40 10/30/19 12:21 General: In no acute distress, supine in bed. BIPAP. Neuro: Reacts to painful stimuli. Assessment. Myeloma - previously receiving Velcade/Dex/Cytoxan. Initially admitted with decompensated CHF (CAD) - hypotension requiring admission to ICU for inotropic support - with gradual deterioration and now florid DEBBIE / obtunded. Has refused dialysis. DNR/DNI. In light of medical futility see no rationale for ongoing interventions, other than comfort measures. Recommend stopping all medications, nutrition, blood products, and lab draws. Opioids appropriate if in pain/discomfort/dyspneic. Please call me if questions/concerns - [phone].
--- NOTE | 2019-10-30 15:21 | PN ---
Progress Note, Physician - Current Medication List Current Medications: Active Medications Acetaminophen (Tylenol -) 650 mg PO Q6H PRN PRN Reason: FEVER Albuterol/Ipratropium (Duoneb -) 1 amp NEB Q4H PRN PRN Reason: SHORTNESS OF BREATH Last Admin: 10/28/19 20:55 Dose: 1 amp Allopurinol (Zyloprim -) 100 mg PO DAILY [facility]PLACED BY [facility] Last Admin: 10/30/19 09:50 Dose: Not Given Amiodarone HCl (Cordarone -) 200 mg PO BID [facility] BY [facility] Last Admin: 10/30/19 09:47 Dose: Not Given Atorvastatin Calcium (Lipitor -) 80 mg PO HS REPL[facility]ED BY [facility] Last Admin: 10/29/19 21:50 Dose: Not Given Escitalopram Oxalate (Lexapro -) 20 mg PO DAILY [facility] Last Admin: 10/30/19 09:47 Dose: Not Given Amino Acids (Clinimix -) 1,000 mls @ 84 mls/hr IV Q12H REPLACED BY [facility] Last Admin: 10/30/19 09:50 Dose: 84 mls/hr Levothyroxine Sodium (Synthroid -) 75 mcg PO DAILY@0700 REPL[facility] BY [facility] Last Admin: 10/30/19 06:09 Dose: Not Given Melatonin (Melatonin) 10 mg PO HS PRN PRN Reason: INSOMNIA Last Admin: 10/23/19 22:13 Dose: 10 mg Methylprednisolone Sodium Succinate (Solu-Medrol -) 20 mg IVPUSH DAILY [facility] Last Admin: 10/30/19 09:49 Dose: 20 mg Midodrine (Proamatine -) 10 mg PO TID-MID REPLACED BY [facility] Last Admin: 10/30/19 15:00 Dose: Not Given Pantoprazole Sodium (Protonix Iv) 40 mg IVPUSH BID REPLACED BY [facility] Last Admin: 10/30/19 09:49 Dose: 40 mg Silver Sulfadiazine (Silvadene -) 1 applic TP DAILY REPL[facility]ED BY [facility] Last Admin: 10/30/19 09:49 Dose: 1 applic Valacyclovir HCl (Valtrex -) 500 mg PO DAILY [facility]PL[facility] BY [facility] Last Admin: 10/30/19 09:50 Dose: Not Given - Objective Vital Signs: Vital Signs Temperature 99.2 F 10/30/19 12:40 Pulse Rate 81 10/30/19 12:40 Respiratory Rate 28 H 10/30/19 12:40 Blood Pressure 82/42 L 10/30/19 12:40 O2 Sat by Pulse Oximetry (%) 97 10/30/19 12:21 Labs: CBC, BMP 10/29/19 10:30 10/28/19 06:00 INR, PTT INR 0.99 (0.83-1.09) 10/07/19 02:55
--- NOTE | 2019-10-30 15:21 | PN ---
Progress Note, Physician History of Present Illness: no changes doing very poorly plan is comfort care - Current Medication List Current Medications: Active Medications Acetaminophen (Tylenol -) 650 mg PO Q6H PRN PRN Reason: FEVER Albuterol/Ipratropium (Duoneb -) 1 amp NEB Q4H PRN PRN Reason: SHORTNESS OF BREATH Last Admin: 10/28/19 20:55 Dose: 1 amp Allopurinol (Zyloprim -) 100 mg PO DAILY [facility] Last Admin: 10/30/19 09:50 Dose: Not Given Amiodarone HCl (Cordarone -) 200 mg PO BID [facility] Last Admin: 10/30/19 09:47 Dose: Not Given Atorvastatin Calcium (Lipitor -) 80 mg PO HS [facility] Last Admin: 10/29/19 21:50 Dose: Not Given Escitalopram Oxalate (Lexapro -) 20 mg PO DAILY [facility] Last Admin: 10/30/19 09:47 Dose: Not Given Amino Acids (Clinimix -) 1,000 mls @ 84 mls/hr IV Q12H [facility] Last Admin: 10/30/19 09:50 Dose: 84 mls/hr Levothyroxine Sodium (Synthroid -) 75 mcg PO DAILY@0700 [facility] Last Admin: 10/30/19 06:09 Dose: Not Given Melatonin (Melatonin) 10 mg PO HS PRN PRN Reason: INSOMNIA Last Admin: 10/23/19 22:13 Dose: 10 mg Methylprednisolone Sodium Succinate (Solu-Medrol -) 20 mg IVPUSH DAILY [facility] Last Admin: 10/30/19 09:49 Dose: 20 mg Midodrine (Proamatine -) 10 mg PO TID-MID [facility] Last Admin: 10/30/19 15:00 Dose: Not Given Pantoprazole Sodium (Protonix Iv) 40 mg IVPUSH BID [facility] Last Admin: 10/30/19 09:49 Dose: 40 mg Silver Sulfadiazine (Silvadene -) 1 applic TP DAILY [facility] Last Admin: 10/30/19 09:49 Dose: 1 applic Valacyclovir HCl (Valtrex -) 500 mg PO DAILY [facility] Last Admin: 10/30/19 09:50 Dose: Not Given - Objective Vital Signs: Vital Signs Temperature 99.2 F 10/30/19 12:40 Pulse Rate 81 10/30/19 12:40 Respiratory Rate 28 H 10/30/19 12:40 Blood Pressure 82/42 L 10/30/19 12:40 O2 Sat by Pulse Oximetry (%) 97 10/30/19 12:21 Constitutional: Yes: No Distress, Calm Cardiovascular: Yes: S1, S2 Respiratory: Yes: On BiPap Musculoskeletal: Yes: WNL Extremities: Yes: WNL Neurological: Yes: Other Psychiatric: Yes: Other Labs: CBC, BMP 10/29/19 10:30 10/28/19 06:00 INR, PTT INR 0.99 (0.83-1.09) 10/07/19 02:55 Assessment/Plan Problem List - Problems (1) Anasarca Code(s): R60.1 - GENERALIZED EDEMA (2) Fluid overload Code(s): E87.70 - FLUID OVERLOAD, UNSPECIFIED (3) Hypoxia Code(s): R09.02 - HYPOXEMIA (4) Weakness Code(s): R53.1 - WEAKNESS (5) ASHD (arteriosclerotic heart disease) Code(s): I25.10 - ATHSCL HEART DISEASE OF [place] CORONARY ARTERY W/O ANG PCTRS (6) Acute exacerbation of CHF (congestive heart failure) Code(s): I50.9 - HEART FAILURE, UNSPECIFIED (7) Acute on chronic systolic CHF (congestive heart failure) Code(s): I50.23 - ACUTE ON CHRONIC SYSTOLIC (CONGESTIVE) HEART FAILURE (8) Adult onset hypothyroidism Code(s): E03.8 - OTHER SPECIFIED HYPOTHYROIDISM (9) Anemia Code(s): D64.9 - ANEMIA, UNSPECIFIED (10) CKD (chronic kidney disease) Code(s): N18.9 - CHRONIC KIDNEY DISEASE, UNSPECIFIED (11) Elevated troponin Code(s): R74.8 - ABNORMAL LEVELS OF OTHER SERUM ENZYMES (12) HLD (hyperlipidemia) Code(s): E78.5 - HYPERLIPIDEMIA, UNSPECIFIED Qualifiers: Hyperlipidemia type: unspecified Qualified Code(s): E78.5 - Hyperlipidemia , unspecified (13) HTN (hypertension) Code(s): I10 - ESSENTIAL (PRIMARY) HYPERTENSION Qualifiers: Hypertension type: unspecified Qualified Code(s): I10 - Essential (primary ) hypertension (14) History of heart artery stent Code(s): Z95.5 - PRESENCE OF CORONARY ANGIOPLASTY IMPLANT AND GRAFT (15) Multiple myeloma Code(s): C90.00 - MULTIPLE MYELOMA NOT HAVING ACHIEVED REMISSION Qualifiers: Multiple myeloma remission status: not in remission Qualified Code(s): C90.00 - Multiple myeloma not having achieved remission uti hypotension Assessment/Plan completed abx resp support rest as per the team poor prognosis not doing well plan for comfort ccare
--- NOTE | 2019-10-30 21:29 | PN ---
Progress Note, Physician History of Present Illness: Pt on BIPAP No new changes Pt remains unresponsive - Current Medication List Current Medications: Active Medications Acetaminophen (Tylenol -) 650 mg PO Q6H PRN PRN Reason: FEVER Albuterol/Ipratropium (Duoneb -) 1 amp NEB Q4H PRN PRN Reason: SHORTNESS OF BREATH Last Admin: 10/28/19 20:55 Dose: 1 amp Allopurinol (Zyloprim -) 100 mg PO DAILY [facility] Last Admin: 10/30/19 09:50 Dose: Not Given Amiodarone HCl (Cordarone -) 200 mg PO BID [facility] Last Admin: 10/30/19 09:47 Dose: Not Given Atorvastatin Calcium (Lipitor -) 80 mg PO HS [facility] Last Admin: 10/29/19 21:50 Dose: Not Given Escitalopram Oxalate (Lexapro -) 20 mg PO DAILY [facility] Last Admin: 10/30/19 09:47 Dose: Not Given Amino Acids (Clinimix -) 1,000 mls @ 84 mls/hr IV Q12H [facility] Last Admin: 10/30/19 09:50 Dose: 84 mls/hr Levothyroxine Sodium (Synthroid -) 75 mcg PO DAILY@0700 [facility] Last Admin: 10/30/19 06:09 Dose: Not Given Melatonin (Melatonin) 10 mg PO HS PRN PRN Reason: INSOMNIA Last Admin: 10/23/19 22:13 Dose: 10 mg Methylprednisolone Sodium Succinate (Solu-Medrol -) 20 mg IVPUSH DAILY [facility] Last Admin: 10/30/19 09:49 Dose: 20 mg Midodrine (Proamatine -) 10 mg PO TID-MID [facility] Last Admin: 10/30/19 18:11 Dose: Not Given Pantoprazole Sodium (Protonix Iv) 40 mg IVPUSH BID [facility] Last Admin: 10/30/19 09:49 Dose: 40 mg Silver Sulfadiazine (Silvadene -) 1 applic TP DAILY [facility] Last Admin: 10/30/19 09:49 Dose: 1 applic Valacyclovir HCl (Valtrex -) 500 mg PO DAILY [facility] Last Admin: 10/30/19 09:50 Dose: Not Given - Objective Vital Signs: Vital Signs Temperature 98.2 F 10/30/19 18:00 Pulse Rate 79 10/30/19 18:00 Respiratory Rate 22 H 10/30/19 18:00 Blood Pressure 89/53 L 10/30/19 18:00 O2 Sat by Pulse Oximetry (%) 99 10/30/19 20:15 Neck: Yes: WNL, Supple Cardiovascular: Yes: WNL, Regular Rate and Rhythm Respiratory: Yes: Diminished Gastrointestinal: Yes: WNL, Normal Bowel Sounds, Soft Edema: Yes Edema: LLE: 1+, RLE: 1+ Labs: CBC, BMP 10/29/19 10:30 10/28/19 06:00 INR, PTT INR 0.99 (0.83-1.09) 10/07/19 02:55 Problem List - Problems (1) Acute on chronic renal failure Assessment/Plan: Pt had been refusing dialysis Gentle hydration due to no po intake Will call grandson about poor prognosis Palliative care consult Code(s): N17.9 - ACUTE KIDNEY FAILURE, UNSPECIFIED; N18.9 - CHRONIC KIDNEY DISEASE, UNSPECIFIED (2) Pancytopenia Assessment/Plan: Plt count decreased Decreasing WBC Code(s): D61.818 - OTHER PANCYTOPENIA (3) Hypotension Assessment/Plan: Cont midodrine Code(s): I95.9 - HYPOTENSION, UNSPECIFIED (4) Multiple myeloma Assessment/Plan: Poor prognosis Family is aware Ethics consult noted Supportive care Code(s): C90.00 - MULTIPLE MYELOMA NOT HAVING ACHIEVED REMISSION Qualifiers: Multiple myeloma remission status: not in remission Qualified Code(s): C90.00 - Multiple myeloma not having achieved remission (5) Acute on chronic systolic CHF (congestive heart failure) Code(s): I50.23 - ACUTE ON CHRONIC SYSTOLIC (CONGESTIVE) HEART FAILURE (6) Hypothyroidism Code(s): E03.9 - HYPOTHYROIDISM, UNSPECIFIED Qualifiers: Hypothyroidism type: acquired Qualified Code(s): E03.9 - Hypothyroidism, unspecified (7) CAD (coronary artery disease) Code(s): I25.10 - ATHSCL HEART DISEASE OF [place] CORONARY ARTERY W/O ANG PCTRS Qualifiers: (8) Depression Code(s): F32.9 - MAJOR DEPRESSIVE DISORDER, SINGLE EPISODE, UNSPECIFIED (9) History of heart artery stent Code(s): Z95.5 - PRESENCE OF CORONARY ANGIOPLASTY IMPLANT AND GRAFT (10) Diarrhea Code(s): R19.7 - DIARRHEA, UNSPECIFIED Qualifiers: Diarrhea type: unspecified type Qualified Code(s): R19.7 - Diarrhea, unspecified (11) UTI (urinary tract infection) Code(s): N39.0 - URINARY TRACT INFECTION, SITE NOT SPECIFIED (12) Elevated troponin Code(s): R74.8 - ABNORMAL LEVELS OF OTHER SERUM ENZYMES (13) HLD (hyperlipidemia) Code(s): E78.5 - HYPERLIPIDEMIA, UNSPECIFIED Qualifiers: Hyperlipidemia type: unspecified Qualified Code(s): E78.5 - Hyperlipidemia , unspecified
[2019-10-30] MEDS: ATORVASTATIN CA 80 MG TABLET (FP) PO SCH (22:40)
[2019-10-31] MEDS ORDERED: PT OWN MED DRAWER 7, Y5N ONE ×2 (03:54→15:50)
[2019-10-31] MEDS: AMINO ACIDS 4.25%/D5W 1,000 ML IV SCH ×2 (04:02→16:11)
[2019-10-31] MEDS ORDERED: LEVOTHYROXINE SODIUM 100 MCG VIAL IVPUSH SCH (07:00)
[2019-10-31] MEDS: ESCITALOPRAM OXALATE 20 MG TABLET (FP) PO SCH (11:31)
[2019-10-31] MEDS: AMIODARONE HCL 200 MG TABLET (FP) PO SCH (11:31)
[2019-10-31] MEDS: valACYclovir HCL 500 MG TABLET (FP) PO SCH (11:32)
[2019-10-31] MEDS: ALLOPURINOL 100 MG TABLET (FP) PO SCH (11:32)
[2019-10-31] MEDS: MIDODRINE HCL 5 MG TABLET PO SCH ×2 (11:32→13:17)
[2019-10-31] MEDS: SILVER SULFADIAZINE 1% TOP CREAM 50 GM JAR TP SCH (11:43)
[2019-10-31] MEDS: methylPREDNISolone NA SUCC 40 MG/1 ML VIAL IVPUSH SCH (11:43)
[2019-10-31] MEDS: PANTOPRAZOLE SODIUM 40 MG VIAL IVPUSH SCH (11:44)
--- NOTE | 2019-10-31 12:48 | PN ---
Progress Note (short form) - Note Progress Note: Poorly responsive on 100% NRBM . No acute events overnight. Intake & Output 10/28/19 10/29/19 10/30/19 10/31/19 23:59 23:59 23:59 23:59 Intake Total 700 1028 1710 1010 Output Total 6600 Balance -5900 1028 1710 1010 Last Vital Signs Temp Pulse Resp BP Pulse Ox 97.2 F L 77 18 101/71 100 10/31/19 10:17 10/31/19 12:00 10/31/19 12:00 10/31/19 12:00 10/31/19 09:00 Active Medications Acetaminophen (Tylenol -) 650 mg PO Q6H PRN PRN Reason: FEVER Albuterol/Ipratropium (Duoneb -) 1 amp NEB Q4H PRN PRN Reason: SHORTNESS OF BREATH Last Admin: 10/28/19 20:55 Dose: 1 amp Allopurinol (Zyloprim -) 100 mg PO DAILY [facility] Last Admin: 10/31/19 11:32 Dose: Not Given Amiodarone HCl (Cordarone -) 200 mg PO BID [facility] Last Admin: 10/31/19 11:31 Dose: Not Given Atorvastatin Calcium (Lipitor -) 80 mg PO HS [facility] Last Admin: 10/30/19 22:40 Dose: Not Given Escitalopram Oxalate (Lexapro -) 20 mg PO DAILY [facility] Last Admin: 10/31/19 11:31 Dose: Not Given Amino Acids (Clinimix -) 1,000 mls @ 84 mls/hr IV Q12H [facility] Last Admin: 10/31/19 04:02 Dose: 84 mls/hr Levothyroxine Sodium (Synthroid Injection -) 37.5 mcg IVPUSH DAILY@0700 [facility] Last Admin: 10/31/19 06:34 Dose: 37.5 mcg Melatonin (Melatonin) 10 mg PO HS PRN PRN Reason: INSOMNIA Last Admin: 10/23/19 22:13 Dose: 10 mg Methylprednisolone Sodium Succinate (Solu-Medrol -) 20 mg IVPUSH DAILY [facility] Last Admin: 10/31/19 11:43 Dose: 20 mg Midodrine (Proamatine -) 10 mg PO TID-MID [facility] Last Admin: 10/31/19 11:32 Dose: Not Given Pantoprazole Sodium (Protonix Iv) 40 mg IVPUSH BID [facility] Last Admin: 10/31/19 11:44 Dose: 40 mg Silver Sulfadiazine (Silvadene -) 1 applic TP DAILY [facility] Last Admin: 10/31/19 11:43 Dose: 1 applic Valacyclovir HCl (Valtrex -) 500 mg PO DAILY [facility] Last Admin: 10/31/19 11:32 Dose: Not Given Gen: poorly responsive on 100% NRBM Heart: RRR Lung: Scattered rhonchi, decreased breath sounds at the bases Abd: soft, nontender Ext: + edema Laboratory Results - last 24 hr 10/30/19 17:57 POC Glucometer 155 A/P Acute on Chronic Systolic Heart Failure Cardiogenic Shock resolving Acute on Chronic Renal Failure requiring HD CAD Acute NSTEMI Paroxysmal Atrial Fibrillation Pneumonia Asthma Multiple Myeloma HTN Hyperlipidemia Hypothyroidism Anemia Hyponatremia - 100% NRBM - Aspiration precautions - NIPPV support - inhaled bronchodilators as needed - DNR / DNI - Supportive and comfort measures Dr Bacon
[2019-10-31 14:50] VITALS: TEMP 97.4
[2019-10-31 16:15] VITALS: BP 98/55; PULSE 60
--- NOTE | 2019-10-31 16:39 | PN ---
Progress Note, Physician History of Present Illness: Pt seen and examined at bedside. She is lethargic. - Current Medication List Current Medications: Active Medications Acetaminophen (Tylenol -) 650 mg PO Q6H PRN PRN Reason: FEVER Albuterol/Ipratropium (Duoneb -) 1 amp NEB Q4H PRN PRN Reason: SHORTNESS OF BREATH Last Admin: 10/28/19 20:55 Dose: 1 amp Allopurinol (Zyloprim -) 100 mg PO DAILY [facility] Last Admin: 10/31/19 11:32 Dose: Not Given Amiodarone HCl (Cordarone -) 200 mg PO BID [facility] Last Admin: 10/31/19 11:31 Dose: Not Given Atorvastatin Calcium (Lipitor -) 80 mg PO HS [facility] Last Admin: 10/30/19 22:40 Dose: Not Given Escitalopram Oxalate (Lexapro -) 20 mg PO DAILY [facility] Last Admin: 10/31/19 11:31 Dose: Not Given Amino Acids (Clinimix -) 1,000 mls @ 84 mls/hr IV Q12H [facility] Last Admin: 10/31/19 16:11 Dose: 84 mls/hr Levothyroxine Sodium (Synthroid Injection -) 37.5 mcg IVPUSH DAILY@0700 [facility] Last Admin: 10/31/19 06:34 Dose: 37.5 mcg Melatonin (Melatonin) 10 mg PO HS PRN PRN Reason: INSOMNIA Last Admin: 10/23/19 22:13 Dose: 10 mg Methylprednisolone Sodium Succinate (Solu-Medrol -) 20 mg IVPUSH DAILY [facility] Last Admin: 10/31/19 11:43 Dose: 20 mg Midodrine (Proamatine -) 10 mg PO TID-MID [facility] Last Admin: 10/31/19 13:17 Dose: Not Given Pantoprazole Sodium (Protonix Iv) 40 mg IVPUSH BID [facility] Last Admin: 10/31/19 11:44 Dose: 40 mg Silver Sulfadiazine (Silvadene -) 1 applic TP DAILY [facility] Last Admin: 10/31/19 11:43 Dose: 1 applic Valacyclovir HCl (Valtrex -) 500 mg PO DAILY [facility] Last Admin: 10/31/19 11:32 Dose: Not Given - Objective Vital Signs: Vital Signs Temperature 97.4 F L 10/31/19 14:49 Pulse Rate 60 10/31/19 16:14 Respiratory Rate 14 10/31/19 14:49 Blood Pressure 98/55 L 10/31/19 16:14 O2 Sat by Pulse Oximetry (%) 96 10/31/19 16:13 Constitutional: Yes: Moderate Distress Cardiovascular: Yes: S1, S2 Respiratory: Yes: On Venti-Mask, Rhonchi Gastrointestinal: Yes: Soft Genitourinary: Yes: Incontinence Musculoskeletal: Yes: Muscle Weakness Edema: Yes Edema: LLE: 1+, RLE: 1+ Neurological: Yes: Lethargy Labs: CBC, BMP 10/29/19 10:30 10/28/19 06:00 INR, PTT INR 0.99 (0.83-1.09) 10/07/19 02:55 Problem List - Problems (1) Fluid overload Code(s): E87.70 - FLUID OVERLOAD, UNSPECIFIED (2) CKD (chronic kidney disease) Code(s): N18.9 - CHRONIC KIDNEY DISEASE, UNSPECIFIED Assessment/Plan Current Medications Generic Name Dose Route Start Last Admin Trade Name Freq PRN Reason Stop Dose Admin Acetaminophen 650 mg 10/21/19 18:26 Tylenol - PO Q6H PRN FEVER Albuterol/Ipratropium 1 amp 10/21/19 18:26 10/28/19 20:55 Duoneb - NEB 1 amp Q4H PRN Administration SHORTNESS OF BREATH Allopurinol 100 mg 10/22/19 10:00 10/31/19 11:32 Zyloprim - PO Not Given DAILY [facility] Amiodarone HCl 200 mg 10/21/19 22:00 10/31/19 11:31 Cordarone - PO Not Given BID [facility] Atorvastatin Calcium 80 mg 10/21/19 22:00 10/30/19 22:40 Lipitor - PO Not Given HS [facility] Escitalopram Oxalate 20 mg 10/24/19 10:00 10/31/19 11:31 Lexapro - PO Not Given DAILY [facility] Amino Acids 1,000 mls @ 84 mls/hr 10/29/19 10:45 10/31/19 16:11 Clinimix - IV 84 mls/hr Q12H [facility] Administration Levothyroxine Sodium 37.5 mcg 10/31/19 07:00 10/31/19 06:34 Synthroid Injection - IVPUSH 37.5 mcg DAILY@0700 [facility] Administration Melatonin 10 mg 10/23/19 02:13 10/23/19 22:13 Melatonin PO 10 mg HS PRN Administration INSOMNIA Methylprednisolone Sodium Succinate 20 mg 10/29/19 11:00 10/31/19 11:43 Solu-Medrol - IVPUSH 20 mg DAILY [facility] Administration Midodrine 10 mg 10/22/19 10:00 10/31/19 13:17 Proamatine - PO Not Given TID-MID [facility] Pantoprazole Sodium 40 mg 10/29/19 22:00 10/31/19 11:44 Protonix Iv IVPUSH 40 mg BID [facility] Administration Silver Sulfadiazine 1 applic 10/22/19 10:00 10/31/19 11:43 Silvadene - TP 1 applic DAILY [facility] Administration Valacyclovir HCl 500 mg 10/22/19 10:00 10/31/19 11:32 Valtrex - PO Not Given DAILY [facility] Impression 1. proteinuria 2. multiple myeloma 3. amyloid 4. dizziness 5. hypotension 6. HLD 7. hypothyroidism 8. anemia 9. CKD 10. fluid overload 11. hypotension 12. hyperkalemia 13. nstemi 14. DEBBIE 15. resp failure requiring bipap Plan - d/c iv - cont oxygen - monitor pulse ox - cont supportive care - pt does not want HD therapy - pt doing poorly
--- NOTE | 2019-10-31 17:37 | HOSP ---
Subjective - Review of Symptoms Events since last encounter: NOTE: called to see patient for unresponsiveness patient is a DNR/DNI On exam patient did not respond to verbal or physical stimuli. absent heart and breath sounds absent peripheral pulses, pupils are fixed and dilated patient pronounced on October 31 2019, at 4:25pm Family at bedside, condolences offered Primary physician [facility] [employer] [facility] [phone] General: Yes: Other Genitourinary: Yes: Other Physical Examination Vital Signs: Vital Signs Temperature 97.4 F L 10/31/19 14:49 Pulse Rate 60 10/31/19 16:14 Respiratory Rate 14 10/31/19 14:49 Blood Pressure 98/55 L 10/31/19 16:14 O2 Sat by Pulse Oximetry (%) 96 10/31/19 16:13 Constitutional: Yes: Other Labs: CBC, BMP 10/29/19 10:30 10/28/19 06:00
--- NOTE | 2019-10-31 21:18 | PN ---
Progress Note (short form) - Note Progress Note: Met with family at bedside and offered condolences to toño Meza and Ministerio
== END 2019-10-31 16:30 | disposition expired ==
LOC: JER 23:07 → JERBED 09-20 05:58 → J4S 09-20 19:09 → JERBED 09-20 19:20 → J4S 09-20 19:27 → JICU 09-27 23:17 → J2W 10-21 06:26
PROVIDERS: ADMIT Internal Medicine; ATTEND Internal Medicine
PROC: 5A09557 Assistance with Respiratory Ventilation, Greater than 96 Consecutive Hours, Continuous Positive Airway Pressure (ICD-10-PCS; principal; 2019-09-20)
PROC: 30233N1 Transfusion of Nonautologous Red Blood Cells into Peripheral Vein, Percutaneous Approach (ICD-10-PCS; 2019-09-27)
PROC: 05HM33Z Insertion of Infusion Device into Right Internal Jugular Vein, Percutaneous Approach (ICD-10-PCS; 2019-09-28)
PROC: 05HN33Z Insertion of Infusion Device into Left Internal Jugular Vein, Percutaneous Approach (ICD-10-PCS; 2019-10-26)
DX: I13.0 Hypertensive heart and chronic kidney disease with heart failure and stage 1 through stage 4 chronic kidney disease, or unspecified chronic kidney disease (principal); J96.01 Acute respiratory failure with hypoxia; I21.4 Non-ST elevation (NSTEMI) myocardial infarction; J18.9 Pneumonia, unspecified organism; N17.0 Acute kidney failure with tubular necrosis; I50.23 Acute on chronic systolic (congestive) heart failure; J96.02 Acute respiratory failure with hypercapnia; N39.0 Urinary tract infection, site not specified; J98.11 Atelectasis; C90.00 Multiple myeloma not having achieved remission; E87.1 Hypo-osmolality and hyponatremia; D61.818 Other pancytopenia; K92.2 Gastrointestinal hemorrhage, unspecified; R57.0 Cardiogenic shock; R16.0 Hepatomegaly, not elsewhere classified; R16.1 Splenomegaly, not elsewhere classified; D64.9 Anemia, unspecified; E03.9 Hypothyroidism, unspecified; E78.5 Hyperlipidemia, unspecified; E87.5 Hyperkalemia; N18.9 Chronic kidney disease, unspecified; I48.0 Paroxysmal atrial fibrillation; I95.9 Hypotension, unspecified; D69.6 Thrombocytopenia, unspecified; E87.70 Fluid overload, unspecified; J45.909 Unspecified asthma, uncomplicated; Z95.5 Presence of coronary angioplasty implant and graft; K21.9 Gastro-esophageal reflux disease without esophagitis; I25.119 Atherosclerotic heart disease of native coronary artery with unspecified angina pectoris; F32.9 Major depressive disorder, single episode, unspecified
CPT/HCPCS: 36415; 36430; 36511; 36600; 71045-TC-FY; 71046-TC-FY; 71260-TC; 74176-TC; 80048; 80053; 80061; 81003; 82272; 82375; 82550; 82553; 82565; 82570; 82803; 82962; 83050; 83605; 83721; 83735; 83880; 84100; 84156; 84439; 84443; 84484; 84520; 84550; 85025; 85027; 85379; 85610; 85730; 86803; 86850; 86900; 86901; 86922; 87040; 87077; 87086; 87340; 93005; 93010; 93306-TC; 94640; 94660; 97116-GP; 97162-GP; 99285-25; J0131; J1644; P9034; P9038; P9047; P9058; Q9967